=== PATIENT | male | born 1955 | race Caucasian/White ===

== ENCOUNTER → 2020-04-14 10:07 | Outpatient (BNVA) | payer OTHER, SELFPAY | PROVIDERS: PCP Internal Medicine; Referring Provider Internal Medicine; Visit Provider Nurse Practitioner Gerontology | DX: E11.42 Type 2 diabetes mellitus with diabetic polyneuropathy (principal); E11.319 Type 2 diabetes mellitus with unspecified diabetic retinopathy without macular edema; E11.29 Type 2 diabetes mellitus with other diabetic kidney complication; Z79.4 Long term (current) use of insulin; R80.9 Proteinuria, unspecified; I10 Essential (primary) hypertension; E78.1 Pure hyperglyceridemia | CPT/HCPCS: 99213 ==

== ENCOUNTER 2020-04-27 13:05 | Outpatient (REF) | payer OTHER, SELFPAY ==
[2020-04-27 14:58] LABS: Estimated Average Glucose 266 mg/dL; Hemoglobin A1c % 10.9 %
== END 2020-04-27 13:06 | disposition home or self-care (01) ==
LOC: HO.LAB 13:05
PROVIDERS: PCP Internal Medicine; Visit Provider Nurse Practitioner Gerontology
DX: E11.29 Type 2 diabetes mellitus with other diabetic kidney complication (principal)
CPT/HCPCS: 83036

== ENCOUNTER 2020-06-12 10:47 | Outpatient (REF) | payer OTHER, SELFPAY ==
[2020-06-12 13:47] LABS: Basophils Absolute Auto 0.1 X10*3/uL (0.0-0.2); Basophils Percent Auto 0.6 % (0-2); Eosinophils Absolute Auto 0.5 X10*3/uL (0.0-0.4); Eosinophils Percent Auto 5.5 % (0-4); Hematocrit 45.1 % (42-52); Hemoglobin 14.4 g/dl (14.0-18.0); Imm Gran Abs Auto 0.02 X10*3/uL (0.00-0.03); Imm Gran Pct Auto 0.2 % (0.0-0.4); Lymphocytes Absolute Auto 2.4 X10*3/uL (1.2-4.9); Lymphocytes Percent Auto 29.6 % (20-40); Mean Corpuscular HGB Conc 31.9 g/dl (31.0-36.0); Mean Corpuscular Hemoglobin 28.4 pg (27.0-33.0); Monocytes Absolute Auto 0.8 X10*3/uL (0.1-1.2); Monocytes Percent Auto 9.5 % (2-11); Neutrophils Absolute Auto 4.4 X10*3/uL (2.0-8.3); Neutrophils Percent Auto 54.6 % (45-73); Platelet Count 178 X10*3/uL (160-400); Red Blood Count 5.07 X10*6/uL (4.60-5.80); White Blood Count 8.1 X10*3/uL (4.8-10.8)
[2020-06-12 14:46] LABS: Albumin Level 4.1 g/dL (3.5-5.0); Anion Gap 18 (12-20); Blood Urea Nitrogen 27 mg/dL (9-16); Calcium 9.2 mg/dL (8.4-10.2); Carbon Dioxide 29 mmol/L (22-29); Chloride 100 mmol/L (96-108); Estimated Glomerular Filt Rate 46; Phosphorus 2.4 mg/dL (2.7-4.5); Potassium 4.7 mmol/l (3.3-5.1); Sodium 142 mmol/L (135-145)
== END 2020-06-12 10:48 | disposition home or self-care (01) ==
LOC: HO.10HDL 10:47
PROVIDERS: PCP Internal Medicine; Visit Provider Internal Medicine Hypertension Specialist
DX: I13.10 Hypertensive heart and chronic kidney disease without heart failure, with stage 1 through stage 4 chronic kidney disease, or unspecified chronic kidney disease (principal); E11.22 Type 2 diabetes mellitus with diabetic chronic kidney disease; N18.9 Chronic kidney disease, unspecified
CPT/HCPCS: 36415; 80051; 82040; 82310; 82565; 83735; 84100; 84520; 85025

== ENCOUNTER 2020-08-09 11:00 | Outpatient (RCR) | payer OTHER, SELFPAY ==
--- NOTE | 2020-06-15 11:30 | MHC.PT.EP ---
[facility] [place] Office [place] Office [place] Office [address] Stef Bland [address] [phone] F: [phone] F: [phone] F: [phone] F: [phone] Physical Therapy Plan of Care Date of Evaluation: 06/15/20 Date of Surgery: Diagnosis: spondylosis without myelopathy or radiculopathy, lumbar region Assessment: 64 y/o M referred to PT with spondylosis without myelopathy or radiculopathy, lumbar region. He has had multiple lumbar spine surgeries with the most recent surgery this January (?disectomy). He reports less pain since the surgery but is most challenged with control of his L LE and walking. He is unable to walk > 10min with walker only. He would like to walk with a cane. Examination shows decreased lumbar AROM, decreased L hip AROM, decreased L LE strength, lacks sensation of L3-4dermatome, and impaired gait pattern. Recommend PT 2x/week for 5 weeks to address impairments, implement HEP, and optimize functional mobility. Frequency and Duration: The patient will be seen 2x/week for 5 weeks Short Term Goals: 3 weeks: -Improve L LE strength by one MMT grade of hip muscles -I with HEP Voice Teacher Goals: 5 weeks: -I with HEP and self management of sx - Pt will ambulate > 30min with LRAD Treatment Plan: Modalities to reduce pain, spasms and effusion. Manual therapy to restore motion and function. Therapeutic exercise to improve strength and flexibility. Neuromuscular re-education for posture and balance. Therapeutic activities to return to functional activities of daily living. Electronically signed by: Sandra Antoine PT Please sign and return to therapist. Thank you for your referral.
--- NOTE | 2020-08-15 14:06 | MHC.PT.DC ---
[facility] [place] Office [place] Office [place] Office [address] Stef Bland [address] [phone] F: [phone] F: [phone] F: [phone] F: [phone] Physical Therapy Discharge Report Diagnosis: spondylosis without myelopathy or radiculopathy, lumbar region Date of Surgery: 01/2020 disectomy? Date of Evaluation: 06/15/20 Date of Discharge: 08/15/20 Treatments to Date: 9 Cancellations to Date: 1 No Shows to Date: 1 Discharge Status: Independent with HEP Discharge Summary: Pt did not f/u with final visit. At time of last attended session, Discussed anticipated d/c to I HEP next visit and pt in agreement. We reviewed exercises and importance to perform exercises wtih eccentric control. He continues to report fatigue following stepper. Electronically signed by: Sandra Antoine PT Please sign and return to therapist. Thank you for your referral.
== END 2020-08-15 14:06 | disposition other institution (70) ==
LOC: HO.PT 11:00
PROVIDERS: PCP Internal Medicine; Visit Provider Internal Medicine
DX: M47.816 Spondylosis without myelopathy or radiculopathy, lumbar region (principal); M48.061 Spinal stenosis, lumbar region without neurogenic claudication
CPT/HCPCS: 97110; 97112; 97140; 97162

== ENCOUNTER → 2020-10-13 09:56 | Outpatient (BNVA) | payer MEDICARE, MEDICAID, SELFPAY | PROVIDERS: PCP Internal Medicine; Visit Provider Nurse Practitioner Gerontology | DX: E11.29 Type 2 diabetes mellitus with other diabetic kidney complication (principal); E11.42 Type 2 diabetes mellitus with diabetic polyneuropathy; E66.01 Morbid (severe) obesity due to excess calories; Z68.37 Body mass index [BMI] 37.0-37.9, adult; R80.9 Proteinuria, unspecified; I10 Essential (primary) hypertension; E78.1 Pure hyperglyceridemia | CPT/HCPCS: 82947; 99212 ==

== ENCOUNTER 2020-11-07 09:14 | Inpatient (IN) | payer OTHER, SELFPAY ==
[2020-11-07] VITALS (8 sets, daily range): BP systolic 86–160; BP diastolic 47–100; PULSE 75–84; RESP 16–18; TEMP 36.9; O2SAT 95–99; BMI 39.5
--- NOTE | ~2020-11-07 | XR_ITS ---
EXAMINATION: CHEST, LUMBAR SPINE, BILATERAL HIPS AND AP PELVIS. CLINICAL INFORMATION: Multiple falls. COMPARISON: Left hip and lumbar spine 03/16/2019 TECHNIQUE: Chest one view. Lumbar spine 3 views. AP pelvis one view. Bilateral hips 2 views each FINDINGS: CHEST: Lungs are hypoexpanded but clear. The heart size and pulmonary vascularity is normal. No gross bony abnormality seen. LUMBAR SPINE: There is normal lumbar lordosis. There is loss of L3-L4, L5-S1 disc heights with moderate ventral spondylosis at at L3-L4, L2-L3 and L-2 disc levels. No acute fracture or lytic process seen. AP PELVIS: There is normal symmetry of bilateral SI joints and hip joints. No visible fracture seen. RIGHT HIP: There is small enthesophyte along the lateral acetabulum and lesser trochanter. No visible acute fracture, dislocation or subluxation seen. LEFT HIP: There is no visible acute fracture, dislocation or subluxation. No bony erosive changes. The soft tissues are normal. XR/XR lumbar spine 2-3V IMPRESSION: Unremarkable chest exam. Degenerative disc changes lumbar spine with moderate ventral spondylosis. No acute fracture or lytic process seen. Small enthesophytes along the lateral acetabulum and lesser trochanter right hip. There is no visible acute fracture involving the pelvic or bilateral hip joints.
--- NOTE | ~2020-11-07 | XR_ITS ---
EXAMINATION: CHEST, LUMBAR SPINE, BILATERAL HIPS AND AP PELVIS. CLINICAL INFORMATION: Multiple falls. COMPARISON: Left hip and lumbar spine 03/16/2019 TECHNIQUE: Chest one view. Lumbar spine 3 views. AP pelvis one view. Bilateral hips 2 views each FINDINGS: CHEST: Lungs are hypoexpanded but clear. The heart size and pulmonary vascularity is normal. No gross bony abnormality seen. LUMBAR SPINE: There is normal lumbar lordosis. There is loss of L3-L4, L5-S1 disc heights with moderate ventral spondylosis at at L3-L4, L2-L3 and L-2 disc levels. No acute fracture or lytic process seen. AP PELVIS: There is normal symmetry of bilateral SI joints and hip joints. No visible fracture seen. RIGHT HIP: There is small enthesophyte along the lateral acetabulum and lesser trochanter. No visible acute fracture, dislocation or subluxation seen. LEFT HIP: There is no visible acute fracture, dislocation or subluxation. No bony erosive changes. The soft tissues are normal. XR/XR pelvis 1-2V IMPRESSION: Unremarkable chest exam. Degenerative disc changes lumbar spine with moderate ventral spondylosis. No acute fracture or lytic process seen. Small enthesophytes along the lateral acetabulum and lesser trochanter right hip. There is no visible acute fracture involving the pelvic or bilateral hip joints.
--- NOTE | ~2020-11-07 | XR_ITS ---
EXAMINATION: CHEST, LUMBAR SPINE, BILATERAL HIPS AND AP PELVIS. CLINICAL INFORMATION: Multiple falls. COMPARISON: Left hip and lumbar spine 03/16/2019 TECHNIQUE: Chest one view. Lumbar spine 3 views. AP pelvis one view. Bilateral hips 2 views each FINDINGS: CHEST: Lungs are hypoexpanded but clear. The heart size and pulmonary vascularity is normal. No gross bony abnormality seen. LUMBAR SPINE: There is normal lumbar lordosis. There is loss of L3-L4, L5-S1 disc heights with moderate ventral spondylosis at at L3-L4, L2-L3 and L-2 disc levels. No acute fracture or lytic process seen. AP PELVIS: There is normal symmetry of bilateral SI joints and hip joints. No visible fracture seen. RIGHT HIP: There is small enthesophyte along the lateral acetabulum and lesser trochanter. No visible acute fracture, dislocation or subluxation seen. LEFT HIP: There is no visible acute fracture, dislocation or subluxation. No bony erosive changes. The soft tissues are normal. XR/XR chest 1V IMPRESSION: Unremarkable chest exam. Degenerative disc changes lumbar spine with moderate ventral spondylosis. No acute fracture or lytic process seen. Small enthesophytes along the lateral acetabulum and lesser trochanter right hip. There is no visible acute fracture involving the pelvic or bilateral hip joints.
--- NOTE | ~2020-11-07 | CT_ITS ---
EXAMINATION: CT PELVIS WITHOUT CONTRAST. CT LUMBAR SPINE WITHOUT CONTRAST. CLINICAL INFORMATION: Fall. Unable to ambulate. Pain left side COMPARISON: None TECHNIQUE: 3 mm thin axial and reformatted 0.6 mm thin sagittal and coronal reconstructed images of pelvis were obtained. Subsequently axial 3 mm thin and reformatted 3 mm thin sagittal and coronal images of lumbar spine were obtained. DLP [id number]. FINDINGS: PELVIS: There is scattered colonic diverticulosis without mural thickening and pericolic fat stranding. No pelvic mass or abnormal pelvic or inguinal lymph nodes seen. The urinary bladder is distended but otherwise unremarkable. Bone windows reveal mild degenerative disc changes with vacuum disc phenomena at L5-S1 disc level. No lytic or sclerotic process seen. There is normal symmetry of bilateral hip joints and SI joints. LUMBAR SPINE: There is normal lumbar lordosis. Loss of L2-L3 and L3-L4 disc heights with ventral and posterior spondylosis is noted. Rest of the disc heights are normal. The vertebral heights and alignment is normal. There is no visible acute fracture or dislocation. No lytic or sclerotic process. There is mild posterior T12-L1 and L1-L2 and moderate ventral L1-L2 and L3-L4 spondylosis. There is moderate right L3-for L4-L5 facet joint arthropathy and hypertrophy. Moderate bilateral L5-S1 facet joint arthropathy is noted. There is mild posterior spondylosis and/bulge complex with circumferential spinal canal stenosis at the L1-L2 disc level. At L2-L3 disc level there is minimal/bulge/osteophyte complex without spinal canal stenosis. There is moderate bilateral neural foraminal narrowing. At L3-L4 disc level there is posterior spondylosis/bulge complex with circumferential canal stenosis. There is moderate bilateral facet joint arthropathy. At L4-L5 disc level there is a broad-based diffuse bulge with moderate spinal canal stenosis. There is moderate to significant right facet joint arthropathy with mild bilateral narrowing of neural foramina is noted At L5-S1 disc level there is no disc bulge, herniation or spinal canal stenosis. The paravertebral soft tissues are normal. CT/CT lumbar spine wo con IMPRESSION: Unremarkable pelvis exam no bony abnormality seen. Degenerative disc changes L2-L3-L4 disc levels with upper lumbar spine and moderate ventral spondylosis Mild canal stenosis secondary to disc bulge/osteophyte complex at L3-L4 and L4-L5 disc levels.
--- NOTE | ~2020-11-07 | XR_ITS ---
EXAMINATION: CHEST, LUMBAR SPINE, BILATERAL HIPS AND AP PELVIS. CLINICAL INFORMATION: Multiple falls. COMPARISON: Left hip and lumbar spine 03/16/2019 TECHNIQUE: Chest one view. Lumbar spine 3 views. AP pelvis one view. Bilateral hips 2 views each FINDINGS: CHEST: Lungs are hypoexpanded but clear. The heart size and pulmonary vascularity is normal. No gross bony abnormality seen. LUMBAR SPINE: There is normal lumbar lordosis. There is loss of L3-L4, L5-S1 disc heights with moderate ventral spondylosis at at L3-L4, L2-L3 and L-2 disc levels. No acute fracture or lytic process seen. AP PELVIS: There is normal symmetry of bilateral SI joints and hip joints. No visible fracture seen. RIGHT HIP: There is small enthesophyte along the lateral acetabulum and lesser trochanter. No visible acute fracture, dislocation or subluxation seen. LEFT HIP: There is no visible acute fracture, dislocation or subluxation. No bony erosive changes. The soft tissues are normal. XR/XR hips ALINE min 3V IMPRESSION: Unremarkable chest exam. Degenerative disc changes lumbar spine with moderate ventral spondylosis. No acute fracture or lytic process seen. Small enthesophytes along the lateral acetabulum and lesser trochanter right hip. There is no visible acute fracture involving the pelvic or bilateral hip joints.
--- NOTE | ~2020-11-07 | CT_ITS ---
EXAMINATION: HEAD CT AND CERVICAL SPINE CT WITHOUT CONTRAST CLINICAL INFORMATION: Fall. Syncope. COMPARISON: Previous cervical spine CT scan April 2020 TECHNIQUE: Axial images through the head and cervical spine without contrast. Sagittal and coronal reconstructions on the technologist workstation were performed. Patient dose 893+4 6 9 mg/cm. This CT examination was performed using dose optimization techniques as appropriate, variously including the following: *Automated exposure control *Adjustment of mA and/or kV according to patient size (this includes techniques or standardized protocols for targeted exams where dose is matched to indication/reason for exam; i.e. extremities or head) *Use of iterative reconstruction technique FINDINGS: Head CT: There is no evidence of an extra-axial collection. There is no evidence of intra-axial or extra-axial hemorrhage. Ventricles and extra-axial CSF spaces are appropriate. Correa-white matter differentiation is normal. No mass, mass effect or infarct is seen. Review of bone windows is normal. Visualized paranasal sinuses, mastoid air cells and middle ears are clear. Cervical spine CT: There is mild 2 mm anterior subluxation of C7 with respect to C6 and T1. There is curvature of the proximal cervical spine to the right. Bone alignment is otherwise normal. There is multilevel degenerative spondylosis seen at all levels. 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 There is degenerative disc disease at C5-C6 and C6-C7 There are degenerative changes of the C1 dens articulation. There is facet arthritis seen at C5-C6, C6-C7 and C7-T1 bilaterally. Prevertebral soft tissues are normal. Visualized lung apices are clear. CT/CT cervical spine wo con IMPRESSION: Head CT: Unremarkable exam. Cervical spine CT: Multilevel degenerative changes. No fracture or dislocation seen.
--- NOTE | 2020-11-07 09:30 | ECG_ITS ---
Test Reason : SYNCOPE Blood Pressure : / mmHG Vent. Rate : 079 BPM Atrial Rate : 079 BPM P-R Int : 166 ms QRS Dur : 110 ms QT Int : 402 ms P-R-T Axes : 036 -34 026 degrees QTc Int : 460 ms Normal sinus rhythm Left axis deviation Borderline ECG When compared with ECG of 25-AUG-2019 09:04, No significant change was found Referred By: Supriya Marin Electronically Signed By:RITA LO
[2020-11-07 10:04] LABS: MANUAL DIFF FLAG NO
[2020-11-07 10:14] LABS: Basophils Percent Auto 0.4 % (0-2); Eosinophils Absolute Auto 0.5 X10*3/uL (0.0-0.4); Eosinophils Percent Auto 5.3 % (0-4); Hematocrit 40.3 % (42-52); Imm Gran Abs Auto 0.04 X10*3/uL (0.00-0.03); Imm Gran Pct Auto 0.4 % (0.0-0.4); Lymphocytes Absolute Auto 2.3 X10*3/uL (1.2-4.9); Lymphocytes Percent Auto 24.9 % (20-40); Mean Corpuscular HGB Conc 32.3 g/dl (31.0-36.0); Mean Corpuscular Hemoglobin 29.7 pg (27.0-33.0); Mean Platelet Volume 13.6 fL (9.4-12.4); Monocytes Absolute Auto 0.7 X10*3/uL (0.1-1.2); Monocytes Percent Auto 7.1 % (2-11); Neutrophils Absolute Auto 5.8 X10*3/uL (2.0-8.3); Neutrophils Percent Auto 61.9 % (45-73); Platelet Count 211 X10*3/uL (160-400); Red Blood Count 4.38 X10*6/uL (4.60-5.80); Red Cell Distribution Width 16.6 % (11.0-16.0); White Blood Count 9.4 X10*3/uL (4.8-10.8)
[2020-11-07 10:21] LABS: Prothrombin Time 11.6 SEC (10.8-13.0)
[2020-11-07 10:24] LABS: Partial Thromboplastin Time 38.4 SEC (24.1-38.0)
[2020-11-07 10:28] LABS: Lactic Acid 4.3 mmol/L (0.5-2.0)
[2020-11-07 10:29] LABS: Glucose Urine UA NEG (NEG); Leukocyte Esterase Urine NEG (NEG); Nitrite Urine NEG (NEG); PH 5.5 (5.0-8.0); Urine Blood NEG (NEG); Urine Ketones NEG (NEG); Urine Protein NEG (NEG-TRACE)
[2020-11-07 10:30] LABS: Appearance Urine CLEAR; Color Urine YELLOW
--- NOTE | 2020-11-07 10:39 | ED_ITS ---
HPI - Syncope General Chief Complaint: Syncope Stated Complaint: LEFT SIDED PAIN AFTER FALL LAST NIGHT,DIZZINESS Time Seen by Provider: 11/07/20 09:18 Source: patient and EMS Mode of arrival: EMS History of Present Illness HPI narrative: 65-year-old male with a past medical history of arthritis, diabetes, diabetic neuropathy, HTN, HLD, lumbar stenosis, obesity, BIBA c/o left hip/side pain s/p fall last night and this morning. Patient reports 4-5 falls in the past week, with dizziness prior to falls, + syncope and LOC, unknown head trauma. Falls are unwitnessed, patient lives at home alone, does not recall events. Reports acute on chronic back pain. Denies headache, vision changes, CP/SOB, abdominal pain, nausea/vomiting, urinary incontinence and retention, weakness, numbness/tingling, fever, cough. Denies known history of seizures MD complaint: loss of consciousness, felt faint and collapsed Related Data Home Medications Medication Instructions Recorded Confirmed atorvastatin 20 mg tablet 20 mg PO DAILY 04/14/20 11/07/20 blood sugar diagnostic #10 ea 04/14/20 10/13/20 fenofibrate nanocrystallized 145 145 mg PO DAILY 04/14/20 11/07/20 mg tablet lancets 28 gauge #100 ea 04/14/20 10/13/20 lorazepam 1 mg tablet 1 mg PO BID 04/14/20 11/07/20 pen needle, diabetic 32 gauge x #50 ea 04/14/20 10/13/20 sertraline 50 mg tablet 50 mg PO DAILY 04/14/20 11/07/20 pen needle, diabetic 31 gauge x #1200 ea 10/13/20 10/13/2011/19 gabapentin 1 cap PO TID 11/07/20 11/07/20 latanoprost 1 drp OPHTHALMIC (EYE) BEDTIME 11/07/20 11/07/20 Previous Rx's Medication Instructions Recorded amlodipine 5 mg tablet 5 mg PO DAILY #30 tab 04/27/20 aspirin 81 mg tablet,delayed 81 mg PO DAILY #30 tab 04/27/20 release ketoconazole 2 % shampoo 1 appl TOPICAL 3XW 30 Days #120 ml 08/24/20 furosemide 20 mg tablet 20 mg PO DAILY #90 tab 09/18/20 cholecalciferol (vitamin D3) 25 25 mcg PO DAILY #30 tab 09/23/20 mcg (1,000 unit) tablet insulin aspart U-100 100 unit/mL See Rx Instructions SUBCUT TID 30 10/13/20 (3 mL) subcutaneous pen Days #30 ml lancets #100 ea 10/13/20 insulin glargine 100 unit/mL (3 55 unit SUBCUT QPM #30 ml 10/16/20 mL) subcutaneous pen blood sugar diagnostic #100 ea 10/17/20 blood-glucose meter #1 ea 10/17/20 dulaglutide 1.5 mg/0.5 mL 1.5 mg SUBCUT QWEEK #2 ml 10/19/20 subcutaneous pen injector metformin 500 mg tablet 500 mg PO BID #56 tab 10/19/20 hydrochlorothiazide 25 mg tablet 25 mg PO DAILY #30 tab 10/29/20 benazepril 40 mg tablet 40 mg PO DAILY #30 tab 10/30/20 oxycodone 5 mg tablet 5 mg PO TID PRN 30 Days #90 tab 10/30/20 Allergies Allergy/AdvReac Type Severity Reaction Status Date / Time Penicillins [PENICILLINS] Allergy Unknown RASH Verified 08/24/20 11:34 Review of Systems Review of Systems: Constitutional: No Fever, No Chills, No Fatigue, No Malaise ENT/Mouth: No Ear Pain, No Nasal Congestion, No sore throat Eyes: No Eye Pain, No Swelling, No Redness, No Vision Changes Cardiovascular: No Chest Pain, No SOB, No Dyspnea on Exertion, No Edema Respiratory: No Cough, No Wheezing, No Dyspnea Gastrointestinal: No Nausea, No Vomiting, No Diarrhea, No Constipation, No Abdominal pain Genitourinary: No Dysuria, No Hematuria, No Urinary Incontinence/retention, No Flank Pain Musculoskeletal: + acute on chronic back pain pain, + left hip pain, No Joint Swelling Skin: No Skin Lesions, No rash Neuro: No Weakness, No Numbness, No Paresthesias, + Loss of Consciousness, + Dizziness, + multiple falls, No Headache Yes all other systems are reviewed and are negative Neurologic: Denies Sensory deficit (Neuro) [facility] Past Medical History Attestation statement: The following information was validated with the patient. Medical History (Updated 11/07/20 @ 13:56 by JIM Valentino) Arthritis Diabetic polyneuropathy associated with type 2 diabetes mellitus Hypertension Hypertriglyceridemia Lumbar spondylosis Lumbar stenosis Obesity due to excess calories Proteinuria Type 2 diabetes mellitus with other diabetic kidney complication Surgical History H/O left knee surgery History of back surgery History of lumbar surgery Hx of eye surgery Family History Family History Father Medical history unknown Mother No problems noted. Maternal Grandmother Medical history unknown Social History Social History (Updated 10/13/20 @ 10:04 by Gladys Gayle [facility]) Household Members: None Alcohol intake: never Smoking Status: Never smoker Tobacco Type: Cigarette Smoked in Last 30 Days: No Advance Directives: Yes Advance Directives Information Provided: No Advance Directives on File: No Physical Exam Vital Signs: Vital Signs: Last Vital Signs Pulse 75 11/07/20 11:52 Resp 16 11/07/20 11:52 BP 97/66 11/07/20 11:52 Pulse Ox 99 11/07/20 11:52 Body Mass Index 39.5 Const: General: cooperative and healthy appearing Orientation/consciousness: patient oriented x3 Limitations: no limitations HENMT: Head: Yes normal to inspection, Yes atraumatic, No Isaacs's sign and No raccoon eyes Ears: hearing grossly normal bilaterally General nose exam: Normal external nose present Face and sinus: Yes normal facial exam Eyes: General: appearance normal, both eyes and all related structures Pupils: Equal, round and reactive pupils present EOM: EOMs intact bilaterally Neck: Other: No midline cervical spinous tenderness or step-offs Neck: Yes normal visual inspection and Yes supple Chest: Chest palpation & inspection: normal inspection of the chest and no crepitus Resp: Effort & Inspection: normal respiratory effort Auscultation: clear to auscultation bilaterally, no crackles, no rales, no rhonchi and no wheezes Cardio: Rate: regular rate Heart sounds: S1 normal heart sound present and S2 normal heart sound present GI: Inspection: Yes normal to inspection Palpation (GI): Soft to palpation, nontender, no guarding and not rigid Back/Spine/Pelvis: Other: Old surgical scar noted to lumbar region. No midline thoracic/lumbar spinous tenderness. + bilateral lumbar MSK tenderness to palpation, no appreciable deformity Skin: Rashes: no rashes Wounds: no wounds Neuro: General: patient oriented x3, tone normal and moves all extremities Cranial nerves: Yes Equal, round and reactive pupils present Motor exam (neuro): 5/5 motor strength present throughout, Pronator motor function not present and no tremor noted Sensory Exam: No Sensory deficit (Neuro) Coordination: [id number] test normal Extrem: Other: Pelvis is stable. Left hip/buttock with +ttp & decreased active ROM secondary to pain. Left nontender General: Yes normal to inspection and Yes no pedal edema Course Course Course Narrative: -no leukocytosis, H&H stable, lactic acid 4.3 > consistent with ?possible seizure >> IVF ordered -UA negative -CXR, lumbar spine, pelvis/hip x-rays without acute findings/fractures or dislocations, degenerative disc changes in lumbar spine > patient has not ambulated since fall this morning will obtain CT pelvis/lumbar spine -1058--notable DAVINA with BUN 45/creatinine 2.76, CPK 662, AST/ ALT elevated (have been elevated in the past), troponin negative -Per pharmacy patient is not compliant with the following medications that he should be taking: Amlopidine, atorvastatin, benazapril, trulicty, sertraline, metformin, hctz. The other meds he reports to adherence to -lactic improved to 2.2 -head/C-spine CT without acute findings CT lumbar spine wo con IMPRESSION: Unremarkable pelvis exam no bony abnormality seen. Degenerative disc changes L2-L3-L4 disc levels with upper lumbar spine and moderate ventral spondylosis Mild canal stenosis secondary to disc bulge/osteophyte complex at L3-L4 and L4-L5 disc levels. > plan to admit for further workup MDM - Syncope MDM Narrative Medical decision making narrative: 65-year-old male with a past medical history of arthritis, diabetes, diabetic neuropathy, HTN, HLD, lumbar stenosis, obesity, BIBA c/o left hip/side pain s/p fall last night and this morning. Patient reports 4-5 falls in the past week, with dizziness prior to falls, + syncope and LOC, unknown head trauma. On exam VSS, NAD, nontoxic appearing, no midline spinous tenderness throughout, physical exam as above, no red flag symptoms. Concern for syncope vs seizure vs ACS vs dehydration/metabolic abnormalities vs ?Aortic stenosis. Rule out ICH/pathology and fracture Plan: EKG, labs, UA, imaging, IVF, anticipated admission Medical Records Attestation: I reviewed the patient's medical records. Lab Data Attestation: I reviewed the patient's lab results. Result diagrams: 11/07/20 09:58 11/07/20 09:58 Labs: Lab Results 11/07/20 11/07/20 11/07/20 Range/Units 09:56 09:57 09:58 WBC 9.4 (4.8-10.8) X10*3/uL RBC 4.38 L (4.60-5.80) X10*6/uL Hgb 13.0 L (14.0-18.0) g/dl Hct 40.3 L (42-52) % MCV 92.0 (80-98) fL MCH 29.7 (27.0-33.0) pg MCHC 32.3 (31.0-36.0) g/dl RDW 16.6 H (11.0-16.0) % Plt Count 211 (160-400) X10*3/uL MPV 13.6 H (9.4-12.4) fL Immature Gran % (Auto) 0.4 (0.0-0.4) % Neut % (Auto) 61.9 (45-73) % Lymph % (Auto) 24.9 (20-40) % [place] % (Auto) 7.1 (2-11) % Eos % (Auto) 5.3 H (0-4) % Baso % (Auto) 0.4 (0-2) % Lymph # (Auto) 2.3 (1.2-4.9) X10*3/uL [place] # (Auto) 0.7 (0.1-1.2) X10*3/uL Eos # (Auto) 0.5 H (0.0-0.4) X10*3/uL Baso # (Auto) 0.0 (0.0-0.2) X10*3/uL Abs Immat Gran (auto) 0.04 H (0.00-0.03) X10*3/uL Absolute Neuts (auto) 5.8 (2.0-8.3) X10*3/uL Absolute Nucleated RBC 0.000 (0.0-0.012) X10*3/uL Nucleated RBC % (auto) 0.0 (0.0-0.2) /100WBC PT (10.8-13.0) SEC INR (0.9-1.1) APTT (24.1-38.0) SEC Sodium (135-145) mmol/L Potassium (3.3-5.1) mmol/L Chloride (96-108) mmol/L Carbon Dioxide (22-29) mmol/L Anion Gap (12-20) BUN (9-16) mg/dL Creatinine (0.5-1.4) mg/dL Estim Creat Clear Calc Estimated GFR Random Glucose (60-115) mg/dL Lactic Acid 4.3 H* (0.5-2.0) mmol/L Lactic Acid Fup @ 2Hr (0.5-2.0) mmol/L Calcium (8.4-10.2) mg/dL Magnesium (1.6-2.6) mg/dL Total Bilirubin (0.0-1.0) mg/dL Direct Bilirubin (0.0-0.5) mg/dL AST (5-37) U/L ALT (0-40) U/L Alkaline Phosphatase (39-117) U/L Total Creatine Kinase (38-174) U/L Troponin I High Sens (<3.5-35.0) ng/L B-Natriuretic Peptide (<100) pg/mL Total Protein (6.5-8.0) g/dL Albumin (3.5-5.0) g/dL Lipase (8-78) U/L Urine Color Urine Appearance Urine pH (5.0-8.0) Ur Specific [place] (1.005-1.025) Urine Protein (NEG-TRACE) MG/DL Urine Glucose (UA) (NEG) MG/DL Urine Ketones (NEG) MG/DL Urine Blood (NEG) Urine Nitrite (NEG) Ur Leukocyte Esterase (NEG) Salicylates (15-30) mg/dL Urine Opiates Screen (Not Detect) Acetaminophen (<30) mcg/mL Ur Barbiturates Screen (Not Detect) Ur Phencyclidine Scrn (Not Detect) Ur Amphetamines Screen (Not Detect) U Benzodiazepines Scrn (Not Detect) Urine Cocaine Screen (Not Detect) U Marijuana (THC) Screen (Not Detect) Ethyl Alcohol mg/dL Coronavirus (PCR) NEGATIVE (Negative) Influenza Type A (PCR) NEGATIVE (Negative) Influenza Type B (PCR) NEGATIVE (Negative) RSV RNA Qual (PCR) NEGATIVE (Negative) 11/07/20 11/07/20 11/07/20 Range/Units 09:58 09:58 09:58 WBC (4.8-10.8) X10*3/uL RBC (4.60-5.80) X10*6/uL Hgb (14.0-18.0) g/dl Hct (42-52) % MCV (80-98) fL MCH (27.0-33.0) pg MCHC (31.0-36.0) g/dl RDW (11.0-16.0) % Plt Count (160-400) X10*3/uL MPV (9.4-12.4) fL Immature Gran % (Auto) (0.0-0.4) % Neut % (Auto) (45-73) % Lymph % (Auto) (20-40) % [place] % (Auto) (2-11) % Eos % (Auto) (0-4) % Baso % (Auto) (0-2) % Lymph # (Auto) (1.2-4.9) X10*3/uL [place] # (Auto) (0.1-1.2) X10*3/uL Eos # (Auto) (0.0-0.4) X10*3/uL Baso # (Auto) (0.0-0.2) X10*3/uL Abs Immat Gran (auto) (0.00-0.03) X10*3/uL Absolute Neuts (auto) (2.0-8.3) X10*3/uL Absolute Nucleated RBC (0.0-0.012) X10*3/uL Nucleated RBC % (auto) (0.0-0.2) /100WBC PT 11.6 (10.8-13.0) SEC INR 1.0 (0.9-1.1) APTT 38.4 H (24.1-38.0) SEC Sodium 144 (135-145) mmol/L Potassium 4.7 (3.3-5.1) mmol/L Chloride 102 (96-108) mmol/L Carbon Dioxide 29 (22-29) mmol/L Anion Gap 18 (12-20) BUN 45 H D (9-16) mg/dL Creatinine 2.76 H (0.5-1.4) mg/dL Estim Creat Clear Calc 33.2 Estimated GFR 23 Random Glucose 160 H (60-115) mg/dL Lactic Acid (0.5-2.0) mmol/L Lactic Acid Fup @ 2Hr (0.5-2.0) mmol/L Calcium 9.7 (8.4-10.2) mg/dL Magnesium 2.4 (1.6-2.6) mg/dL Total Bilirubin 0.6 (0.0-1.0) mg/dL Direct Bilirubin 0.3 (0.0-0.5) mg/dL AST 59 H (5-37) U/L ALT 47 H (0-40) U/L Alkaline Phosphatase 79 (39-117) U/L Total Creatine Kinase 662 H (38-174) U/L Troponin I High Sens < 3.5 (<3.5-35.0) ng/L B-Natriuretic Peptide < 10 (<100) pg/mL Total Protein 7.3 (6.5-8.0) g/dL Albumin 4.2 (3.5-5.0) g/dL Lipase 56 (8-78) U/L Urine Color Urine Appearance Urine pH (5.0-8.0) Ur Specific [place] (1.005-1.025) Urine Protein (NEG-TRACE) MG/DL Urine Glucose (UA) (NEG) MG/DL Urine Ketones (NEG) MG/DL Urine Blood (NEG) Urine Nitrite (NEG) Ur Leukocyte Esterase (NEG) Salicylates < 5.0 L (15-30) mg/dL Urine Opiates Screen (Not Detect) Acetaminophen < 1 (<30) mcg/mL Ur Barbiturates Screen (Not Detect) Ur Phencyclidine Scrn (Not Detect) Ur Amphetamines Screen (Not Detect) U Benzodiazepines Scrn (Not Detect) Urine Cocaine Screen (Not Detect) U Marijuana (THC) Screen (Not Detect) Ethyl Alcohol mg/dL Coronavirus (PCR) (Negative) Influenza Type A (PCR) (Negative) Influenza Type B (PCR) (Negative) RSV RNA Qual (PCR) (Negative) 11/07/20 11/07/20 11/07/20 Range/Units 10:15 10:15 12:20 WBC (4.8-10.8) X10*3/uL RBC (4.60-5.80) X10*6/uL Hgb (14.0-18.0) g/dl Hct (42-52) % MCV (80-98) fL MCH (27.0-33.0) pg MCHC (31.0-36.0) g/dl RDW (11.0-16.0) % Plt Count (160-400) X10*3/uL MPV (9.4-12.4) fL Immature Gran % (Auto) (0.0-0.4) % Neut % (Auto) (45-73) % Lymph % (Auto) (20-40) % [place] % (Auto) (2-11) % Eos % (Auto) (0-4) % Baso % (Auto) (0-2) % Lymph # (Auto) (1.2-4.9) X10*3/uL [place] # (Auto) (0.1-1.2) X10*3/uL Eos # (Auto) (0.0-0.4) X10*3/uL Baso # (Auto) (0.0-0.2) X10*3/uL Abs Immat Gran (auto) (0.00-0.03) X10*3/uL Absolute Neuts (auto) (2.0-8.3) X10*3/uL Absolute Nucleated RBC (0.0-0.012) X10*3/uL Nucleated RBC % (auto) (0.0-0.2) /100WBC PT (10.8-13.0) SEC INR (0.9-1.1) APTT (24.1-38.0) SEC Sodium (135-145) mmol/L Potassium (3.3-5.1) mmol/L Chloride (96-108) mmol/L Carbon Dioxide (22-29) mmol/L Anion Gap (12-20) BUN (9-16) mg/dL Creatinine (0.5-1.4) mg/dL Estim Creat Clear Calc Estimated GFR Random Glucose (60-115) mg/dL Lactic Acid (0.5-2.0) mmol/L Lactic Acid Fup @ 2Hr (0.5-2.0) mmol/L Calcium (8.4-10.2) mg/dL Magnesium (1.6-2.6) mg/dL Total Bilirubin (0.0-1.0) mg/dL Direct Bilirubin (0.0-0.5) mg/dL AST (5-37) U/L ALT (0-40) U/L Alkaline Phosphatase (39-117) U/L Total Creatine Kinase (38-174) U/L Troponin I High Sens (<3.5-35.0) ng/L B-Natriuretic Peptide (<100) pg/mL Total Protein (6.5-8.0) g/dL Albumin (3.5-5.0) g/dL Lipase (8-78) U/L Urine Color YELLOW Urine Appearance CLEAR Urine pH 5.5 (5.0-8.0) Ur Specific [place] 1.020 (1.005-1.025) Urine Protein NEG (NEG-TRACE) MG/DL Urine Glucose (UA) NEG (NEG) MG/DL Urine Ketones NEG (NEG) MG/DL Urine Blood NEG (NEG) Urine Nitrite NEG (NEG) Ur Leukocyte Esterase NEG (NEG) Salicylates (15-30) mg/dL Urine Opiates Screen POSITIVE H (Not Detect) Acetaminophen (<30) mcg/mL Ur Barbiturates Screen Not Detected (Not Detect) Ur Phencyclidine Scrn Not Detected (Not Detect) Ur Amphetamines Screen Not Detected (Not Detect) U Benzodiazepines Scrn Not Detected (Not Detect) Urine Cocaine Screen Not Detected (Not Detect) U Marijuana (THC) Screen Not Detected (Not Detect) Ethyl Alcohol < 10 mg/dL Coronavirus (PCR) (Negative) Influenza Type A (PCR) (Negative) Influenza Type B (PCR) (Negative) RSV RNA Qual (PCR) (Negative) 11/07/20 Range/Units 12:20 WBC (4.8-10.8) X10*3/uL RBC (4.60-5.80) X10*6/uL Hgb (14.0-18.0) g/dl Hct (42-52) % MCV (80-98) fL MCH (27.0-33.0) pg MCHC (31.0-36.0) g/dl RDW (11.0-16.0) % Plt Count (160-400) X10*3/uL MPV (9.4-12.4) fL Immature Gran % (Auto) (0.0-0.4) % Neut % (Auto) (45-73) % Lymph % (Auto) (20-40) % [place] % (Auto) (2-11) % Eos % (Auto) (0-4) % Baso % (Auto) (0-2) % Lymph # (Auto) (1.2-4.9) X10*3/uL [place] # (Auto) (0.1-1.2) X10*3/uL Eos # (Auto) (0.0-0.4) X10*3/uL Baso # (Auto) (0.0-0.2) X10*3/uL Abs Immat Gran (auto) (0.00-0.03) X10*3/uL Absolute Neuts (auto) (2.0-8.3) X10*3/uL Absolute Nucleated RBC (0.0-0.012) X10*3/uL Nucleated RBC % (auto) (0.0-0.2) /100WBC PT (10.8-13.0) SEC INR (0.9-1.1) APTT (24.1-38.0) SEC Sodium (135-145) mmol/L Potassium (3.3-5.1) mmol/L Chloride (96-108) mmol/L Carbon Dioxide (22-29) mmol/L Anion Gap (12-20) BUN (9-16) mg/dL Creatinine (0.5-1.4) mg/dL Estim Creat Clear Calc Estimated GFR Random Glucose (60-115) mg/dL Lactic Acid (0.5-2.0) mmol/L Lactic Acid Fup @ 2Hr 2.2 H* (0.5-2.0) mmol/L Calcium (8.4-10.2) mg/dL Magnesium (1.6-2.6) mg/dL Total Bilirubin (0.0-1.0) mg/dL Direct Bilirubin (0.0-0.5) mg/dL AST (5-37) U/L ALT (0-40) U/L Alkaline Phosphatase (39-117) U/L Total Creatine Kinase (38-174) U/L Troponin I High Sens (<3.5-35.0) ng/L B-Natriuretic Peptide (<100) pg/mL Total Protein (6.5-8.0) g/dL Albumin (3.5-5.0) g/dL Lipase (8-78) U/L Urine Color Urine Appearance Urine pH (5.0-8.0) Ur Specific [place] (1.005-1.025) Urine Protein (NEG-TRACE) MG/DL Urine Glucose (UA) (NEG) MG/DL Urine Ketones (NEG) MG/DL Urine Blood (NEG) Urine Nitrite (NEG) Ur Leukocyte Esterase (NEG) Salicylates (15-30) mg/dL Urine Opiates Screen (Not Detect) Acetaminophen (<30) mcg/mL Ur Barbiturates Screen (Not Detect) Ur Phencyclidine Scrn (Not Detect) Ur Amphetamines Screen (Not Detect) U Benzodiazepines Scrn (Not Detect) Urine Cocaine Screen (Not Detect) U Marijuana (THC) Screen (Not Detect) Ethyl Alcohol mg/dL Coronavirus (PCR) (Negative) Influenza Type A (PCR) (Negative) Influenza Type B (PCR) (Negative) RSV RNA Qual (PCR) (Negative) Discharge Plan Discharge Clinical Impression: DAVINA (acute kidney injury), Syncope, Multiple falls, Low back pain Prescriptions: No Action amlodipine 5 mg tablet 5 mg PO DAILY Qty: 30 RF: 11 aspirin 81 mg tablet,delayed release (DR/EC) 81 mg PO DAILY Qty: 30 RF: 11 furosemide 20 mg tablet 20 mg PO DAILY Qty: 90 RF: 2 cholecalciferol (vitamin D3) 25 mcg (1,000 unit) tablet 25 mcg PO DAILY Qty: 30 RF: 8 (DME) lancets [Accu-Chek Softclix Lancets] Misc See Rx Instructions .ROUTE .MEDSUPPLY Qty: 100 RF: 11 Lantus Solostar U-100 Insulin 100 unit/mL (3 mL) insulin pen 55 unit subcut QPM Qty: 30 RF: 3 (DME) Accu-Chek Felisa Plus test strp Strip See Rx Instructions .ROUTE .MEDSUPPLY Qty: 100 RF: 11 (DME) blood-glucose meter [Accu-Chek Felisa Plus Meter] Misc See Rx Instructions .ROUTE .MEDSUPPLY Qty: 1 RF: 0 metformin 500 mg tablet 500 mg PO BID Qty: 56 RF: 0 dulaglutide [Trulicity] 1.5 mg/0.5 mL pen injector 1.5 mg subcut QWEEK Qty: 2 RF: 0 hydrochlorothiazide 25 mg tablet 25 mg PO DAILY Qty: 30 RF: 6 oxycodone 5 mg tablet 5 mg PO TID PRN (Reason: pain) 30 Days Qty: 90 RF: 0 benazepril 40 mg tablet 40 mg PO DAILY Qty: 30 RF: 2 latanoprost 0.005 % drops 1 drp ophthalmic (eye) BEDTIME RF: 0 gabapentin 400 mg capsule 1 cap PO TID RF: 0 ketoconazole 2 % shampoo 1 appl topical 3XW 30 Days Qty: 120 RF: 4 sertraline 50 mg tablet 50 mg PO DAILY RF: 0 atorvastatin 20 mg tablet 20 mg PO DAILY RF: 0 (DME) pen needle, diabetic 32 gauge x 5/32 needle See Rx Instructions ea subcut .MEDSUPPLY Qty: 50 RF: 0 lorazepam 1 mg tablet 1 mg PO BID RF: 0 (DME) lancets 28 gauge misc See Rx Instructions lancet topical TID Qty: 100 RF: 0 (DME) FreeStyle Lite Strips Strip See Rx Instructions strip .ROUTE .MEDSUPPLY Qty: 10 RF: 0 fenofibrate nanocrystallized 145 mg tablet 145 mg PO DAILY RF: 0 (DME) pen needle, diabetic 31 gauge x 5/16 needle See Rx Instructions ea subcut .MEDSUPPLY Qty: 1200 RF: 0 insulin aspart U-100 [Novolog Flexpen U-100 Insulin] 100 unit/mL (3 mL) insulin pen See Rx Instructions subcut TID 30 Days Qty: 30 RF: 3
[2020-11-07] MEDS: 0.9 % Sodium Chloride 1,000 ML 999 ML IVCONT ×2 (10:43→11:51)
[2020-11-07 10:44] LABS: Alanine Aminotransferase 47 U/L (0-40); Albumin Level 4.2 g/dL (3.5-5.0); Alkaline Phosphatase 79 U/L (39-117); Anion Gap 18 (12-20); Aspartate Amino Transferase 59 U/L (5-37); Bilirubin Direct 0.3 mg/dL (0.0-0.5); Bilirubin Total 0.6 mg/dL (0.0-1.0); Blood Urea Nitrogen 45 mg/dL (9-16); Calcium 9.7 mg/dL (8.4-10.2); Carbon Dioxide 29 mmol/L (22-29); Chloride 102 mmol/L (96-108); Creatinine Clr Calc Pharmacy 33.2; Estimated Glomerular Filt Rate 23; Glucose Random 160 mg/dL (60-115); Lipase 56 U/L (8-78); Magnesium 2.4 mg/dL (1.6-2.6); Potassium 4.7 mmol/L (3.3-5.1); Sodium 144 mmol/L (135-145); Total Protein 7.3 g/dL (6.5-8.0)
[2020-11-07 10:47] LABS: B Type Natriuretic Peptide < 10 pg/mL (<100); Troponin-I High Sensitivity < 3.5 ng/L (<3.5-35.0)
[2020-11-07 10:57] LABS: Amphetamine Screen Urine Not Detected (Not Detect); Barbiturates, Urine Not Detected (Not Detect); Benzodiazepines Screen Urine Not Detected (Not Detect); Cannabinoid Screen Urine Not Detected (Not Detect); Cocaine Screen Urine Not Detected (Not Detect); Opiate Screen Urine POSITIVE (Not Detect); Phencyclidine Screen Urine Not Detected (Not Detect)
[2020-11-07 10:59] LABS: Influenza A PCR NEGATIVE (Negative); Influenza B PCR NEGATIVE (Negative); Resp Syncy Virus RNA Qual PCR NEGATIVE (Negative); SARS COV2 PCR INHOUSE NEGATIVE (Negative)
[2020-11-07 11:01] LABS: Acetaminophen LAB < 1 mcg/mL (<30); Salicylate < 5.0 mg/dL (15-30)
[2020-11-07 12:02] LABS: Reflex Lactate? Lactic Acid Added
[2020-11-07 12:55] LABS: Ethanol < 10 mg/dL; ~Lactic Acid-LAB USE ONLY 2.2 mmol/L (0.5-2.0)
[2020-11-07 14:24] LABS: Reflex Lactate? 2 Y
[2020-11-07 15:25] LABS: ~Lactic Acid-LAB USE ONLY 1.7 mmol/L (0.5-2.0)
--- NOTE | 2020-11-07 15:30 | PM.IMHP ---
History of Present Illness Date of Service: 11/07/20 Chief Complaint: syncope, left hip pain 65M presented with several episodes of syncope over the past week. he states this is the first time this has happened to him. he walks around and suddenly passes out. he fell on his left side and actually came to the ED for pain in his left hip from the fall and not for the sycnope. trauma work up was negative. he denies chest pain, sob, fever, chills. he is on several antihypertensives, no new meds. orthostatics positive in ED and DAVINA on ckd Review of Systems Review of Systems: Constitutional: Denies fever, denies Chills Eyes: denies blurry vision ENT: denies sore throat CVS: denies chest pain Respiratory: Denies dyspnea GI: no abdominal pain : denies dysuria MSK: neck pain Skin: denies rash Neuro: denies specific motor weakness Psych: denies suicidal ideation Endocrine: denies heat/cold intoleratnce Hematologic: denies easy bleeding Allergy: denies hives [facility] Medical History Arthritis CKD (chronic kidney disease), stage III Diabetic polyneuropathy associated with type 2 diabetes mellitus Hypertension Hypertriglyceridemia Lumbar spondylosis Lumbar stenosis Obesity due to excess calories Proteinuria Type 2 diabetes mellitus with other diabetic kidney complication Family History Father Medical history unknown Mother No problems noted. Maternal Grandmother Medical history unknown Family history: reviewed and not pertinent Surgical History H/O left knee surgery History of back surgery History of lumbar surgery Hx of eye surgery Social History Household Members: None Alcohol intake: never Smoking Status: Never smoker Tobacco Type: Cigarette Smoked in Last 30 Days: No Advance Directives: Yes Advance Directives Information Provided: No Advance Directives on File: No Meds Allergies Allergy/AdvReac Type Severity Reaction Status Date / Time Penicillins [PENICILLINS] Allergy Unknown RASH Verified 08/24/20 11:34 Active Medications: Current Medications Generic Name Dose Route Start Last Admin Trade Name Freq PRN Reason Stop Dose Admin Pharmacy Consult 1 each 11/07/20 09:30 Consult Rx Perform Med Rec MISCELLANE ONCE PRN Consult order Home Medications Medication Instructions Recorded Confirmed Last Taken Type atorvastatin 20 mg tablet 20 mg PO DAILY 04/14/20 11/07/20 Unknown History blood sugar diagnostic #10 ea 04/14/20 10/13/20 Unknown History fenofibrate nanocrystallized 145 145 mg PO DAILY 04/14/20 11/07/20 Unknown History mg tablet lancets 28 gauge #100 ea 04/14/20 10/13/20 Unknown History lorazepam 1 mg tablet 1 mg PO BID 04/14/20 11/07/20 Unknown History pen needle, diabetic 32 gauge x #50 ea 04/14/20 10/13/20 Unknown History sertraline 50 mg tablet 50 mg PO DAILY 04/14/20 11/07/20 Unknown History pen needle, diabetic 31 gauge x #1200 ea 10/13/20 10/13/20 Unknown History 11/19 gabapentin 1 cap PO TID 11/07/20 11/07/20 Unknown History latanoprost 1 drp OPHTHALMIC (EYE) BEDTIME 11/07/20 11/07/20 Unknown History Physical Exam Vital Signs and Narrative: Vital Signs: Last Vital Signs Pulse 84 11/07/20 14:35 Resp 16 11/07/20 14:27 BP 86/47 L 11/07/20 14:35 Pulse Ox 98 11/07/20 14:27 Body Mass Index 39.5 General: no acute distress HEENT: atraumatic Neck: normal to visual inspection CVS: S1, S2, RRR Resp: CTA bilateral Chest: non tender GI: soft, non tender, non distended : no CVA tenderness Skin: no rashes Extremities: no edema Neuro: Oriented X3, grossly intact Psych: cooperative Results Labs CBC and Chem 7: 11/07/20 09:58 11/07/20 09:58 Labs: Laboratory Results - last 24 hr 11/07/20 11/07/20 11/07/20 09:56 09:57 09:58 MCV 92.0 MCH 29.7 MCHC 32.3 RDW 16.6 H Plt Count 211 MPV 13.6 H Immature Gran % (Auto) 0.4 Neut % (Auto) 61.9 Lymph % (Auto) 24.9 [place] % (Auto) 7.1 Eos % (Auto) 5.3 H Baso % (Auto) 0.4 Lymph # (Auto) 2.3 [place] # (Auto) 0.7 Eos # (Auto) 0.5 H Baso # (Auto) 0.0 Abs Immat Gran (auto) 0.04 H Absolute Neuts (auto) 5.8 Absolute Nucleated RBC 0.000 Nucleated RBC % (auto) 0.0 PT INR APTT Anion Gap Estim Creat Clear Calc Estimated GFR Random Glucose Lactic Acid 4.3 H* Lactic Acid Fup @ 2Hr Lactic Acid Fup @ 4Hr Calcium Magnesium Total Bilirubin Direct Bilirubin AST ALT Alkaline Phosphatase Total Creatine Kinase Troponin I High Sens B-Natriuretic Peptide Total Protein Albumin Lipase Urine Color Urine Appearance Urine pH Ur Specific Moore Urine Protein Urine Glucose (UA) Urine Ketones Urine Blood Urine Nitrite Ur Leukocyte Esterase Salicylates Urine Opiates Screen Acetaminophen Ur Barbiturates Screen Ur Phencyclidine Scrn Ur Amphetamines Screen U Benzodiazepines Scrn Urine Cocaine Screen U Marijuana (THC) Screen Ethyl Alcohol Coronavirus (PCR) NEGATIVE Influenza Type A (PCR) NEGATIVE Influenza Type B (PCR) NEGATIVE RSV RNA Qual (PCR) NEGATIVE 11/07/20 11/07/20 11/07/20 09:58 09:58 09:58 MCV MCH MCHC RDW Plt Count MPV Immature Gran % (Auto) Neut % (Auto) Lymph % (Auto) [place] % (Auto) Eos % (Auto) Baso % (Auto) Lymph # (Auto) [place] # (Auto) Eos # (Auto) Baso # (Auto) Abs Immat Gran (auto) Absolute Neuts (auto) Absolute Nucleated RBC Nucleated RBC % (auto) PT 11.6 INR 1.0 APTT 38.4 H Anion Gap 18 Estim Creat Clear Calc 33.2 Estimated GFR 23 Random Glucose 160 H Lactic Acid Lactic Acid Fup @ 2Hr Lactic Acid Fup @ 4Hr Calcium 9.7 Magnesium 2.4 Total Bilirubin 0.6 Direct Bilirubin 0.3 AST 59 H ALT 47 H Alkaline Phosphatase 79 Total Creatine Kinase 662 H Troponin I High Sens < 3.5 B-Natriuretic Peptide < 10 Total Protein 7.3 Albumin 4.2 Lipase 56 Urine Color Urine Appearance Urine pH Ur Specific Moore Urine Protein Urine Glucose (UA) Urine Ketones Urine Blood Urine Nitrite Ur Leukocyte Esterase Salicylates < 5.0 L Urine Opiates Screen Acetaminophen < 1 Ur Barbiturates Screen Ur Phencyclidine Scrn Ur Amphetamines Screen U Benzodiazepines Scrn Urine Cocaine Screen U Marijuana (THC) Screen Ethyl Alcohol Coronavirus (PCR) Influenza Type A (PCR) Influenza Type B (PCR) RSV RNA Qual (PCR) 11/07/20 11/07/20 11/07/20 10:15 10:15 12:20 MCV MCH MCHC RDW Plt Count MPV Immature Gran % (Auto) Neut % (Auto) Lymph % (Auto) [place] % (Auto) Eos % (Auto) Baso % (Auto) Lymph # (Auto) [place] # (Auto) Eos # (Auto) Baso # (Auto) Abs Immat Gran (auto) Absolute Neuts (auto) Absolute Nucleated RBC Nucleated RBC % (auto) PT INR APTT Anion Gap Estim Creat Clear Calc Estimated GFR Random Glucose Lactic Acid Lactic Acid Fup @ 2Hr Lactic Acid Fup @ 4Hr Calcium Magnesium Total Bilirubin Direct Bilirubin AST ALT Alkaline Phosphatase Total Creatine Kinase Troponin I High Sens B-Natriuretic Peptide Total Protein Albumin Lipase Urine Color YELLOW Urine Appearance CLEAR Urine pH 5.5 Ur Specific Moore 1.020 Urine Protein NEG Urine Glucose (UA) NEG Urine Ketones NEG Urine Blood NEG Urine Nitrite NEG Ur Leukocyte Esterase NEG Salicylates Urine Opiates Screen POSITIVE H Acetaminophen Ur Barbiturates Screen Not Detected Ur Phencyclidine Scrn Not Detected Ur Amphetamines Screen Not Detected U Benzodiazepines Scrn Not Detected Urine Cocaine Screen Not Detected U Marijuana (THC) Screen Not Detected Ethyl Alcohol < 10 Coronavirus (PCR) Influenza Type A (PCR) Influenza Type B (PCR) RSV RNA Qual (PCR) 11/07/20 11/07/20 12:20 15:05 MCV MCH MCHC RDW Plt Count MPV Immature Gran % (Auto) Neut % (Auto) Lymph % (Auto) [place] % (Auto) Eos % (Auto) Baso % (Auto) Lymph # (Auto) [place] # (Auto) Eos # (Auto) Baso # (Auto) Abs Immat Gran (auto) Absolute Neuts (auto) Absolute Nucleated RBC Nucleated RBC % (auto) PT INR APTT Anion Gap Estim Creat Clear Calc Estimated GFR Random Glucose Lactic Acid Lactic Acid Fup @ 2Hr 2.2 H* Lactic Acid Fup @ 4Hr 1.7 Calcium Magnesium Total Bilirubin Direct Bilirubin AST ALT Alkaline Phosphatase Total Creatine Kinase Troponin I High Sens B-Natriuretic Peptide Total Protein Albumin Lipase Urine Color Urine Appearance Urine pH Ur Specific Moore Urine Protein Urine Glucose (UA) Urine Ketones Urine Blood Urine Nitrite Ur Leukocyte Esterase Salicylates Urine Opiates Screen Acetaminophen Ur Barbiturates Screen Ur Phencyclidine Scrn Ur Amphetamines Screen U Benzodiazepines Scrn Urine Cocaine Screen U Marijuana (THC) Screen Ethyl Alcohol Coronavirus (PCR) Influenza Type A (PCR) Influenza Type B (PCR) RSV RNA Qual (PCR) Imaging Radiologist's Impressions: Impressions Cervical Spine CT 11/07/20 09:30 IMPRESSION: Head CT: Unremarkable exam. Cervical spine CT: Multilevel degenerative changes. No fracture or dislocation seen. Head CT 11/07/20 09:30 IMPRESSION: Head CT: Unremarkable exam. Cervical spine CT: Multilevel degenerative changes. No fracture or dislocation seen. Hip X-Ray 11/07/20 09:30 IMPRESSION: Unremarkable chest exam. Degenerative disc changes lumbar spine with moderate ventral spondylosis. No acute fracture or lytic process seen. Small enthesophytes along the lateral acetabulum and lesser trochanter right hip. There is no visible acute fracture involving the pelvic or bilateral hip joints. Chest X-Ray 11/07/20 09:35 IMPRESSION: Unremarkable chest exam. Degenerative disc changes lumbar spine with moderate ventral spondylosis. No acute fracture or lytic process seen. Small enthesophytes along the lateral acetabulum and lesser trochanter right hip. There is no visible acute fracture involving the pelvic or bilateral hip joints. Lumbar Spine X-Ray 11/07/20 09:35 IMPRESSION: Unremarkable chest exam. Degenerative disc changes lumbar spine with moderate ventral spondylosis. No acute fracture or lytic process seen. Small enthesophytes along the lateral acetabulum and lesser trochanter right hip. There is no visible acute fracture involving the pelvic or bilateral hip joints. Pelvis X-Ray 11/07/20 09:35 IMPRESSION: Unremarkable chest exam. Degenerative disc changes lumbar spine with moderate ventral spondylosis. No acute fracture or lytic process seen. Small enthesophytes along the lateral acetabulum and lesser trochanter right hip. There is no visible acute fracture involving the pelvic or bilateral hip joints. Lumbar Spine CT 11/07/20 11:48 IMPRESSION: Unremarkable pelvis exam no bony abnormality seen. Degenerative disc changes L2-L3-L4 disc levels with upper lumbar spine and moderate ventral spondylosis Mild canal stenosis secondary to disc bulge/osteophyte complex at L3-L4 and L4-L5 disc levels. Pelvis CT 11/07/20 11:48 IMPRESSION: Unremarkable pelvis exam no bony abnormality seen. Degenerative disc changes L2-L3-L4 disc levels with upper lumbar spine and moderate ventral spondylosis Mild canal stenosis secondary to disc bulge/osteophyte complex at L3-L4 and L4-L5 disc levels. Assessment and Plan (1) DAVINA (acute kidney injury): Status: Acute (2) Multiple falls: Status: Acute 65M presented with multiple syncopal episodes found to have orthostatic hypotension and davina syncope likely due to orthostatic hypotension hold antihypertensives IVF monitor on telemetry check echo PT eval DAVINA on CKD III IVF, monitor DM inuslin lactic acidosis likely due to dehydration, hypotension no evidence of sepsis elevated lfts likely NAFLD
--- NOTE | 2020-11-07 17:07 | PC.NURSE ---
Pt alert and oriented. Present to ED s/p fall two days ago. Pt c/o right lower back pain. Pain meds given as ordered with good effect as stated by pt. 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 Pt ready for discharge.
[2020-11-07] MEDS: Heparin Sodium,Porcine 5,000 UNIT/ML VIAL 5000 UNIT SUBCUT (17:52)
[2020-11-07] MEDS: 0.9 % Sodium Chloride Flush 3 ML SYRINGE IVFLUSH (17:57)
[2020-11-07 18:03] LABS: Glucose, Whole Blood 177 mg/dL (60-115)
[2020-11-07] MEDS: Lactated Ringers 1,000 ML 80 ML IVCONT (18:15)
[2020-11-07] MEDS: Insulin Lispro 100 UNIT/ML 3 ML VIAL SUBCUT ×2 (18:17→21:50)
--- NOTE | 2020-11-07 18:44 | PC.NURSE ---
Pt alert and oriented, presents to ED with syncopal episodes no LOC. Orthos +. B/P soft throughout shift. Medication given as charted. Pt awaiting transfer to unit.
--- NOTE | 2020-11-07 19:25 | PC.NURSE ---
REPORT TO RN ON IMC, PT TO FLOOR ON STRETCHER. PT LEFT ED IN NAD. PT ALERT, RESPIRATIONS EASY, N/L. SKIN W/D.
[2020-11-07 20:33] LABS: Glucose, Whole Blood 301 mg/dL (60-115)
[2020-11-07] MEDS: Insulin Glargine,Hum.rec.anlog 100 UNIT/ML 10 ML VIAL 55 UNIT SUBCUT (21:49)
[2020-11-07] MEDS: oxyCODONE HCl Immed Release 5 MG TABLET PO (21:51)
[2020-11-08] VITALS (8 sets, daily range): BP systolic 84–137; BP diastolic 41–71; PULSE 55–88; RESP 16–20; TEMP 36–36.9; O2SAT 94–97
[2020-11-08] MEDS: Heparin Sodium,Porcine 5,000 UNIT/ML VIAL 5000 UNIT SUBCUT ×4 (02:34→23:29)
[2020-11-08] MEDS: oxyCODONE HCl Immed Release 5 MG TABLET PO ×4 (05:06→23:29)
[2020-11-08 06:45] LABS: MANUAL DIFF FLAG SCAN; SCAN SMEAR FLAG 1
[2020-11-08 06:46] LABS: Anion Gap 12 (12-20); Blood Urea Nitrogen 38 mg/dL (9-16); Calcium 8.4 mg/dL (8.4-10.2); Carbon Dioxide 27 mmol/L (22-29); Chloride 105 mmol/L (96-108); Creatinine Clr Calc Pharmacy 42.1; Estimated Glomerular Filt Rate 31; Glucose Random 160 mg/dL (60-115); Potassium 4.2 mmol/L (3.3-5.1); Sodium 140 mmol/L (135-145)
[2020-11-08 06:47] LABS: Basophils Percent Auto 0.6 % (0-2); Eosinophils Absolute Auto 0.4 X10*3/uL (0.0-0.4); Eosinophils Percent Auto 5.3 % (0-4); Hematocrit 34.7 % (42-52); Hemoglobin 11.2 g/dl (14.0-18.0); Imm Gran Abs Auto 0.04 X10*3/uL (0.00-0.03); Imm Gran Pct Auto 0.6 % (0.0-0.4); Lymphocytes Absolute Auto 1.7 X10*3/uL (1.2-4.9); Lymphocytes Percent Auto 23.9 % (20-40); Mean Corpuscular HGB Conc 32.3 g/dl (31.0-36.0); Mean Corpuscular Hemoglobin 29.6 pg (27.0-33.0); Mean Corpuscular Volume 91.8 fL (80-98); Monocytes Absolute Auto 0.5 X10*3/uL (0.1-1.2); Monocytes Percent Auto 7.5 % (2-11); Neutrophils Absolute Auto 4.5 X10*3/uL (2.0-8.3); Neutrophils Percent Auto 62.1 % (45-73); Platelet Count 184 X10*3/uL (160-400); Red Blood Count 3.78 X10*6/uL (4.60-5.80); Red Cell Distribution Width 16.6 % (11.0-16.0); White Blood Count 7.2 X10*3/uL (4.8-10.8)
[2020-11-08 06:52] LABS: PLT ABN DIST 1
[2020-11-08 07:22] LABS: Glucose, Whole Blood 145 mg/dL (60-115)
[2020-11-08] MEDS: Lactated Ringers 1,000 ML 80 ML IVCONT ×2 (08:01→22:36)
[2020-11-08] MEDS: 0.9 % Sodium Chloride 500 ML IV (08:07)
[2020-11-08] MEDS: Aspirin Enteric Coated 81 MG TABLET.DR PO (08:08)
[2020-11-08] MEDS: Atorvastatin Calcium 20 MG TABLET PO (08:08)
[2020-11-08] MEDS: Sertraline HCL 50 MG TABLET PO (08:08)
[2020-11-08] MEDS: 0.9 % Sodium Chloride Flush 3 ML SYRINGE IVFLUSH ×2 (08:08→23:29)
[2020-11-08] MEDS: Cholecalciferol (Vitamin D3) 25 MCG TABLET PO (08:08)
[2020-11-08 11:14] LABS: Glucose, Whole Blood 189 mg/dL (60-115)
[2020-11-08] MEDS: Insulin Lispro 100 UNIT/ML 3 ML VIAL SUBCUT ×3 (11:15→20:22)
--- NOTE | 2020-11-08 11:42 | MHC.CM.PN ---
CM met with Patient at Bedside. Patient lives alone in an apartment and he uses a walker to assist with mobility. Patient receives [employer] hours/week and his goal is to return home and resume those services. PT is recommending STR. CM has initiated and will follow for dc planning. Patient is agreeable to a referral to [facility] for home PT. PCP is Dr. Tram Castellanos.
--- NOTE | 2020-11-08 14:03 | HO.PM.IMPN ---
Subjective Subjective Date of Service: 11/08/20 Interval History: seen in follow up for syncope, DAVINA seen and examined this morning feels better than yesterday Denies dizziness, chest pain, palpitations Review of Systems Review of Systems: Yes all other systems are reviewed and are negative Constitutional Constitutional: Denies chills and Denies fever(s) Cardiovascular Cardiovascular: Denies chest pain Respiratory Respiratory: Denies cough Gastrointestinal Gastrointestinal: Denies abdominal pain Physical Exam Vital Signs: Vital Signs: Last Vital Signs Temp 97.2 F 11/08/20 12:00 Pulse 88 11/08/20 12:00 Resp 20 11/08/20 12:00 BP 127/64 11/08/20 12:00 Pulse Ox 96 11/08/20 12:00 Body Mass Index 39.5 Const: General: comfortable, no acute distress, alert and awake Nutritional Appearance: well nourished Orientation/consciousness: patient oriented x3 HENMT: Head: Yes normocephalic and Yes atraumatic Eyes: Sclerae: sclerae normal Chest: Chest palpation & inspection: normal inspection of the chest Resp: Effort & Inspection: normal respiratory effort and no respiratory distress Auscultation: clear to auscultation bilaterally Cardio: Rate: regular rate Rhythm: regular rhythm GI: Palpation (GI): Soft to palpation and nontender Neuro: General: patient oriented x3 Cranial nerves: Yes CN's II-XII intact bilaterally and Yes Bilaterally intact EOM present Objective Data Current Medications Generic Name Dose Route Start Last Admin Trade Name Freq PRN Reason Stop Dose Admin Aspirin 81 mg 11/08/20 09:00 11/08/20 08:08 Aspirin Enteric Coated 81 Mg Tablet. PO 81 mg DAILY IMTIAZ Administration Atorvastatin Calcium 20 mg 11/08/20 09:00 11/08/20 08:08 Atorvastatin Calcium 20 Mg Tablet PO 20 mg DAILY IMTIAZ Administration Heparin Sodium (Porcine) 5,000 unit 11/07/20 16:14 11/08/20 08:08 Heparin Sodium,Porcine 5,000 Unit/Ml Vial SUBCUT 5,000 unit Q8H IMTIAZ Administration Lactated Ringer's 1,000 mls @ 80 mls/hr 11/07/20 16:14 11/08/20 09:32 Lr IVCONT 80 mls/hr .[id number] IMTIAZ Infusion Insulin Glargine 55 unit 11/07/20 21:00 11/07/20 21:49 Insulin Glargine,Hum.Rec.Anlog 100 Unit/Ml 10 Ml Vial SUBCUT 55 unit DAILY@2100 IMTIAZ Administration Insulin Human Lispro 0 unit 11/07/20 16:30 11/08/20 11:15 Insulin Lispro 100 Unit/Ml 3 Ml Vial SUBCUT 2 unit QIDACHS IMTIAZ Administration Protocol Latanoprost 1 drop 11/07/20 21:00 11/07/20 22:03 Latanoprost 0.005 % Ophth Maria Eugenia 2.5 Ml Drops EYE-BOTH Not Given [facility] Oxycodone HCl 5 mg 11/07/20 16:14 11/08/20 11:15 Oxycodone Hcl Immed Release 5 Mg Tablet PO 5 mg Q6H PRN Administration Pain, Severe (Pain Scale 7-10) Pharmacy Consult 1 each 11/07/20 09:30 Consult Rx Perform Med Rec MISCELLANE ONCE PRN Consult order Sertraline HCl 50 mg 11/08/20 09:00 11/08/20 08:08 Sertraline Hcl 50 Mg Tablet PO 50 mg DAILY IMTIAZ Administration Sodium Chloride 3 ml 11/07/20 16:14 11/08/20 08:08 0.9 % Sodium Chloride Flush 3 Ml Syringe IVFLUSH 3 ml QSHIFT IMTIAZ Administration Vitamin D 25 mcg 11/08/20 09:00 11/08/20 08:08 Cholecalciferol (Vitamin D3) 25 Mcg Tablet PO 25 mcg DAILY IMTIAZ Administration Labs CBC & Chem 7: 11/08/20 05:25 11/08/20 05:25 Assessment and Plan (1) DAVINA (acute kidney injury): Status: Acute (2) Syncope: Status: Acute Assessment and Plan: This is a 65-year-old male with history of hypertension, diabetes, hyperlipidemia who presented to the emergency room with multiple syncopal events and hip pain found to have orthostatic hypotension Syncope Related to orthostatic hypotension. Blood pressure low this morning Trop negative. ECHO showing preserved ejection fraction with no obvious valvular pathology -continue IV fluid -repeat orthostatic blood pressures in a.m. -amlodipine, benazepril, furosemide, HCTZ on hold DAVINA on CKD3 SCr 2.76 on admission, trending down to 2.18. -Continue IVF -Follow BMP Diabetes -hold metformin, trulicity -continue insulin -SSI, POC, ada diet lactic acidosis resolved. no evidence of sepsis Hyperlipidemia -Hold statin, fenofibrate Mood Continue sertraline dvt ppx - heparin attending: Dr. Bush
[2020-11-08 16:11] LABS: Glucose, Whole Blood 215 mg/dL (60-115)
--- NOTE | 2020-11-08 16:14 | CA_ITS ---
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 The visually estimated ejection fraction is between 55-60%. - No obvious valvular pathology seen on this study. Findings Left Ventricle Normal left ventricular cavity size. There is mildly increased left ventricular wall thickness. The left ventricular systolic function is normal. The visually estimated ejection fraction is between 55-60%. There is no evidence of regional wall motion abnormalities. Diastolic function is normal for age. Right Ventricle Normal right ventricular cavity size and systolic function. Atria The left atrium is normal in size. The right atrium is normal in size. Aortic Valve There is a normal trileaflet aortic valve. There is no aortic valve stenosis. There is no aortic valve regurgitation. Mitral Valve The mitral valve appears normal. There is trace mitral valve regurgitation. There is no mitral valve stenosis. Pulmonic Valve The pulmonic valve was not well visualized. There is trace to mild pulmonic valve regurgitation. Tricuspid Valve Normal tricuspid valve structure. There is trace tricuspid valve regurgitation. The pulmonary artery systolic pressure is normal. Great Vessels The aortic annulus, sinuses of valsalva, and asc aorta are normal in size. Venous The inferior vena cava is normal in size and collapses greater than 50% with inspiration. Pericardium/Pleural There is no evidence of pericardial effusion. Prior Study Comparison No significant change compared to prior study dated: 10/26/2019. Recommendations, Care & Conclusions No obvious valvular pathology seen on this study. Measurements 2D Linear Measurements IVSd: 1.23 0.6-0.9/0.6-1.0 cm LVIDd: 4.26 3.9-5.3/4.2-5.9 cm LVIDd Index: 1.86 2.4-3.2/2.2-3.1 cm/m2 LVIDs: 2.74 2.0-3.6 cm LVPWd: 1.26 0.7-1.1 cm Ao Root: 3.20 2.1-3.5 cm LA Diam: 3.10 2.7-3.8/3.0-4.0 cm LAIDs Index: 1.35 1.5-2.3 cm/m2 LV Mass: 239.45 67-162/88-224 g LV Mass Index: 104.56 43-95/49-115 g/m2 LVOT Diam: 2.20 3.0+(-)1.3 cm 2D Systolic Function EF 4C: 69.60 >55% EF 2C: 59.70 >55% EF BiP: 64.50 >55% Mitral Valve MV Pk E: 0.55 MV PK A: 0.82 MV Decel Time: 187.00 E/A: 0.70 E'Lateral: 9.86 E'Medial: 7.74 E/E' Med: 7.10 E/E' Lat: 5.60 PHT: 55.00 MVA PHT: 4.00 Decel [place]: 2.94 Aortic Valve AoV Pk Jose: 1.24 AoV Mn Jose: 0.78 AoV VTI: 0.26 AoV Pk Grad: 6.00 Aov Mn Grad: 3.00 TREMAYNE Cont.VTI: 2.94 LVOT LVOT Pk Jose: 0.95 LVOT Mn Jose: 0.55 LVOT VTI: 0.20 LVOT Pk Grad: 4.00 LVOT Mn Grad: 2.00 LVOT Diam: 2.20 LVOT Area: 3.80 Diastolic Function MV Pk E: 0.55 MV Pk A: 0.82 E/A: 0.70 E'Medial: 7.74 E/E' Med: 7.10 E' Laterial: 9.86 E/E' Lat: 5.60 Tricuspid Valve TR Pk Jose: 2.29 TR Pk Grad: 21.00 RA Press: 3.00 Great Vessels Aorta Ao Root-2D: 3.20 2.0-3.7 cm Ao Asc: 3.10 2.1-3.4 cm Pulmonary Valve PV Pk Jose: 0.99 Peak PV Grad: 4.00 Updated in Other Vendor System with Status of Final Yuri Neri MD electronically signed on 11/08/2020 11:55:10 AM with status of Final
[2020-11-08 20:12] LABS: Glucose, Whole Blood 175 mg/dL (60-115)
[2020-11-08] MEDS: Insulin Glargine,Hum.rec.anlog 100 UNIT/ML 10 ML VIAL 55 UNIT SUBCUT (20:22)
[2020-11-08] MEDS: Latanoprost 0.005 % Ophth Sol 2.5 ML DROPS 1 DROP EYE-BOTH (20:23)
[2020-11-09] VITALS (7 sets, daily range): BP systolic 106–149; BP diastolic 58–79; PULSE 59–89; RESP 19–20; TEMP 36.2–36.5; O2SAT 96–98
[2020-11-09 07:19] LABS: Glucose, Whole Blood 150 mg/dL (60-115)
[2020-11-09] MEDS: Aspirin Enteric Coated 81 MG TABLET.DR PO (07:37)
[2020-11-09] MEDS: 0.9 % Sodium Chloride Flush 3 ML SYRINGE IVFLUSH (07:37)
[2020-11-09] MEDS: Heparin Sodium,Porcine 5,000 UNIT/ML VIAL 5000 UNIT SUBCUT (07:37)
[2020-11-09] MEDS: Cholecalciferol (Vitamin D3) 25 MCG TABLET PO (07:37)
[2020-11-09] MEDS: Sertraline HCL 50 MG TABLET PO (07:37)
[2020-11-09 08:23] LABS: Anion Gap 14 (12-20); Blood Urea Nitrogen 27 mg/dL (9-16); Calcium 9.1 mg/dL (8.4-10.2); Carbon Dioxide 26 mmol/L (22-29); Chloride 107 mmol/L (96-108); Estimated Glomerular Filt Rate 41; Glucose Random 160 mg/dL (60-115); Potassium 4.7 mmol/L (3.3-5.1); Sodium 142 mmol/L (135-145)
--- NOTE | 2020-11-09 10:26 | PM.DS ---
DS: Providers Provider Date of Service: 11/09/20 Date of admission: 11/07/20 15:25 Primary care physician: Tram Álvarez MD DS: Diagnosis Discharge Diagnosis (1) DAVINA (acute kidney injury): Status: Acute (2) Syncope: Status: Acute (3) Orthostatic hypotension: Status: Acute DS: Medications Discharge Medications Home Medications: Home Medications Medication Instructions Recorded Confirmed atorvastatin 20 mg tablet 20 mg PO DAILY 04/14/20 11/07/20 blood sugar diagnostic #10 ea 04/14/20 10/13/20 fenofibrate nanocrystallized 145 145 mg PO DAILY 04/14/20 11/07/20 mg tablet lancets 28 gauge #100 ea 04/14/20 10/13/20 lorazepam 1 mg tablet 1 mg PO BID 04/14/20 11/07/20 pen needle, diabetic 32 gauge x #50 ea 04/14/20 10/13/20 sertraline 50 mg tablet 50 mg PO DAILY 04/14/20 11/07/20 pen needle, diabetic 31 gauge x #1200 ea 10/13/20 10/13/2011/19 gabapentin 1 cap PO TID 11/07/20 11/07/20 latanoprost 1 drp OPHTHALMIC (EYE) BEDTIME 11/07/20 11/07/20 Previous Rx's Medication Instructions Recorded amlodipine 5 mg tablet 5 mg PO DAILY #30 tab 04/27/20 aspirin 81 mg tablet,delayed 81 mg PO DAILY #30 tab 04/27/20 release ketoconazole 2 % shampoo 1 appl TOPICAL 3XW 30 Days #120 ml 08/24/20 furosemide 20 mg tablet 20 mg PO DAILY #90 tab 09/18/20 cholecalciferol (vitamin D3) 25 25 mcg PO DAILY #30 tab 09/23/20 mcg (1,000 unit) tablet insulin aspart U-100 100 unit/mL See Rx Instructions SUBCUT TID 30 10/13/20 (3 mL) subcutaneous pen Days #30 ml lancets #100 ea 10/13/20 insulin glargine 100 unit/mL (3 55 unit SUBCUT QPM #30 ml 10/16/20 mL) subcutaneous pen blood sugar diagnostic #100 ea 10/17/20 blood-glucose meter #1 ea 10/17/20 dulaglutide 1.5 mg/0.5 mL 1.5 mg SUBCUT QWEEK #2 ml 10/19/20 subcutaneous pen injector metformin 500 mg tablet 500 mg PO BID #56 tab 10/19/20 hydrochlorothiazide 25 mg tablet 25 mg PO DAILY #30 tab 10/29/20 benazepril 40 mg tablet 40 mg PO DAILY #30 tab 10/30/20 oxycodone 5 mg tablet 5 mg PO TID PRN 30 Days #90 tab 10/30/20 walker #1 ea 11/08/20 DS: Summary Hospital Course Hospital Course: 65M presented with several episodes of syncope over the past week. he states this is the first time this has happened to him. he walks around and suddenly passes out. he fell on his left side and actually came to the ED for pain in his left hip from the fall and not for the sycnope. trauma work up was negative. he denies chest pain, sob, fever, chills. he is on several antihypertensives, no new meds. orthostatics positive in ED and DAVINA on ckd Syncope. Leg related to orthostatic hypotension. Orthostatic blood pressures positive on admission and blood pressure was low into the 80s systolic. Antihypertensives were placed on hold on admission. Patient was treated with IV fluid. Gradually blood pressure improved and orthostatic blood pressures were negative on day of discharge. Patient is able to ambulate without dizziness. He is instructed to hold his HCTZ, furosemide, benazepril. He will resume his Norvasc. Patient was evaluated by Physical therapy who recommended short-term rehab however the patient has declined and prefers to return home. He was able to ambulate with his walker without assistance. He should call to schedule follow-up appointment with his PCP. DAVINA. Noted on admission creatinine was 2.76 up from baseline 1.5. Furosemide, HCTZ and benazepril were held and he was treated with IVF. His renal function improved to 1.67. Furosemide, HCTZ, benazepril will be held on discharge. Repeat BMP should be checked in 1 week. Antihypertensives can be resumed based on outcome of lab work. Patient should call PCP to schedule follow-up appointment. Time Spent with Patient Time attestation: Total time spent providing and/or coordinating discharge services: Discharge coordination time: Greater than 30 minutes Physical Exam Vital Signs: Vital Signs: Last Vital Signs Temp 97.4 F 11/09/20 08:00 Pulse 89 11/09/20 08:18 Resp 20 11/09/20 08:00 BP 147/79 H 11/09/20 08:18 Pulse Ox 97 11/09/20 08:00 Body Mass Index 39.5 Const: General: comfortable, no acute distress, alert and awake Nutritional Appearance: well nourished Orientation/consciousness: patient oriented x3 HENMT: Head: Yes normocephalic and Yes atraumatic Eyes: Sclerae: sclerae normal Chest: Chest palpation & inspection: normal inspection of the chest Resp: Effort & Inspection: normal respiratory effort and no respiratory distress Auscultation: clear to auscultation bilaterally Cardio: Rate: regular rate Rhythm: regular rhythm GI: Palpation (GI): Soft to palpation and nontender Neuro: General: patient oriented x3 Cranial nerves: Yes CN's II-XII intact bilaterally and Yes Bilaterally intact EOM present DS: Data Data Completed and Pending Labs on day of discharge: Laboratory Results - last 24 hr 11/08/20 11/08/20 11/08/20 11:10 16:08 20:04 Sodium Potassium Chloride Carbon Dioxide Anion Gap BUN Creatinine Estim Creat Clear Calc Estimated GFR POC Glucose 189 H 215 H 175 H Random Glucose Calcium 11/09/20 11/09/20 07:12 07:40 Sodium 142 Potassium 4.7 Chloride 107 Carbon Dioxide 26 Anion Gap 14 BUN 27 H Creatinine 1.67 H Estim Creat Clear Calc 55.0 Estimated GFR 41 POC Glucose 150 H Random Glucose 160 H Calcium 9.1 D Discharge Plan Discharge Patient Disposition: Home, Self-Care Discharge Diagnosis: Syncope Orthostatic Hypotension DAVINA Referrals: Tram Royal MD [Primary Care Provider] - 1 Week Discharge Medications: Continued amlodipine 5 mg tablet 5 mg PO DAILY Qty: 30 RF: 11 aspirin 81 mg tablet,delayed release (DR/EC) 81 mg PO DAILY Qty: 30 RF: 11 cholecalciferol (vitamin D3) 25 mcg (1,000 unit) tablet 25 mcg PO DAILY Qty: 30 RF: 8 (DME) lancets [Accu-Chek Softclix Lancets] Misc See Rx Instructions .ROUTE .MEDSUPPLY Qty: 100 RF: 11 Lantus Solostar U-100 Insulin 100 unit/mL (3 mL) insulin pen 55 unit subcut QPM Qty: 30 RF: 3 (DME) Accu-Chek Felisa Plus test strp Strip See Rx Instructions .ROUTE .MEDSUPPLY Qty: 100 RF: 11 (DME) blood-glucose meter [Accu-Chek Felisa Plus Meter] Misc See Rx Instructions .ROUTE .MEDSUPPLY Qty: 1 RF: 0 dulaglutide [Trulicity] 1.5 mg/0.5 mL pen injector 1.5 mg subcut QWEEK Qty: 2 RF: 0 oxycodone 5 mg tablet 5 mg PO TID PRN (Reason: pain) 30 Days Qty: 90 RF: 0 (DME) Ultra-Light Rollator Misc See Rx Instructions .ROUTE .MEDSUPPLY Qty: 1 RF: 0 latanoprost 0.005 % drops 1 drp ophthalmic (eye) BEDTIME RF: 0 gabapentin 400 mg capsule 1 cap PO TID RF: 0 ketoconazole 2 % shampoo 1 appl topical 3XW 30 Days Qty: 120 RF: 4 sertraline 50 mg tablet 50 mg PO DAILY RF: 0 atorvastatin 20 mg tablet 20 mg PO DAILY RF: 0 (DME) pen needle, diabetic 32 gauge x 5/32 needle See Rx Instructions ea subcut .MEDSUPPLY Qty: 50 RF: 0 lorazepam 1 mg tablet 1 mg PO BID RF: 0 (DME) lancets 28 gauge misc See Rx Instructions lancet topical TID Qty: 100 RF: 0 (DME) blood sugar diagnostic Strip See Rx Instructions strip .ROUTE .MEDSUPPLY Qty: 10 RF: 0 fenofibrate nanocrystallized 145 mg tablet 145 mg PO DAILY RF: 0 (DME) pen needle, diabetic 31 gauge x 5/16 needle See Rx Instructions ea subcut .MEDSUPPLY Qty: 1200 RF: 0 insulin aspart U-100 [Novolog Flexpen U-100 Insulin] 100 unit/mL (3 mL) insulin pen See Rx Instructions subcut TID 30 Days Qty: 30 RF: 3 Held furosemide 20 mg tablet 20 mg PO DAILY Qty: 90 RF: 2 Hold Instructions: Resume on 11/16/20. Stop taking until repeat labs are checked metformin 500 mg tablet 500 mg PO BID Qty: 56 RF: 0 Hold Instructions: Resume on 11/16/20. Stop taking until repeat labs are checked hydrochlorothiazide 25 mg tablet 25 mg PO DAILY Qty: 30 RF: 6 Hold Instructions: Resume on 11/16/20. Stop taking until repeat labs are checked benazepril 40 mg tablet 40 mg PO DAILY Qty: 30 RF: 2 Hold Instructions: Resume on 11/16/20. Stop taking until repeat lab work is checked. Activity on Discharge: As tolerated Stand Alone Forms: Patient Portal Discharge page Other Ambulatory Orders: Basic Metabolic Panel (Routine) Timeframe: [id number] Facility: [facility] - Location: Laboratory Ordered By: Luz Blount Care Plan Goals: See below Health Concerns: Acute kidney injury Syncope Orthostatic Hypotension Plan of Treatment: Please stop taking HCTZ, lasix, benazepril until you have repeat lab work checked in 1 week Please sit and pause before standing, stand up slowly Please call your PCP to schedule a follow up appointment Assessment: See discharge summary
--- NOTE | 2020-11-09 11:12 | MHC.CM.PN ---
DP Male 65 DX DAVINA discharge to home today. KWAME to resume [employer] services. The Pt has arranged for private transportation to home.
[2020-11-09 11:34] LABS: Glucose, Whole Blood 218 mg/dL (60-115)
[2020-11-09] MEDS: Insulin Lispro 100 UNIT/ML 3 ML VIAL SUBCUT (12:20)
--- NOTE | 2020-11-09 13:13 | W.MHC.F2F ---
Service Date Service Date: 11/09/20 Encounter Date of encounter: 11/09/20 Reasons for Services Reason for physical therapy: home safety and mobility MD Overseeing Care: Tram Álvarez Homebound: Leaving the home is medically contraindicated at this time without the asist of a device and/or another person due th the listed conditions above and below. Reason homebound: unsteady gait / fall risk and weakness related to hospital stay Certification: Based on the above findings, I certify that this patient is confined to the home and needs intermittent [facility] care, physical therapy and/or speech therapy, or continues to need occupational therapy. The patient is under my care, and I have initiated the establishment of the plan of care. The patient will be followed by a physician who will periodically review the plan of care.
== END 2020-11-09 13:16 | disposition home or self-care (01) | DRG 312 ==
LOC: HO.ED 14:55 → HO.EDOVER 15:33 → HO.IMC 16:47
PROVIDERS: Emergency Medicine; Physician Assistant; Physician Assistant Medical; Admitting Provider Internal Medicine; Emergency Provider Internal Medicine; PCP Internal Medicine; Visit Provider Family Medicine
DX: I95.1 Orthostatic hypotension (principal); N17.9 Acute kidney failure, unspecified; E87.2 Acidosis; I12.9 Hypertensive chronic kidney disease with stage 1 through stage 4 chronic kidney disease, or unspecified chronic kidney disease; E11.22 Type 2 diabetes mellitus with diabetic chronic kidney disease; R29.6 Repeated falls; E78.5 Hyperlipidemia, unspecified; Z91.81 History of falling; N18.30 Chronic kidney disease, stage 3 unspecified; Z20.822 Contact with and (suspected) exposure to COVID-19; Z88.0 Allergy status to penicillin; Z79.4 Long term (current) use of insulin; Z79.82 Long term (current) use of aspirin; Z79.899 Other long term (current) drug therapy
CPT/HCPCS: 0241U; 36415; 70450; 71045; 72100; 72125; 72131; 72170; 72192; 73522; 80048; 80076; 80143; 80179; 80307; 80320; 81003; 82550; 82947; 83605; 83690; 83735; 83880; 84484; 85025; 85610; 85730; 93005; 93306; 97110; 97116; 97162; 99219; 99285

== ENCOUNTER 2020-11-14 08:43 | Outpatient (REF) | payer OTHER, SELFPAY ==
[2020-11-14 10:11] LABS: Alanine Aminotransferase 51 U/L (0-40); Albumin Level 4.3 g/dL (3.5-5.0); Alkaline Phosphatase 85 U/L (39-117); Anion Gap 18 (12-20); Aspartate Amino Transferase 37 U/L (5-37); Bilirubin Total 0.7 mg/dL (0.0-1.0); Blood Urea Nitrogen 42 mg/dL (9-16); Calcium 9.6 mg/dL (8.4-10.2); Carbon Dioxide 25 mmol/L (22-29); Chloride 106 mmol/L (96-108); Cholesterol 120 mg/dL; Estimated Glomerular Filt Rate 26; Glucose Fasting 129 mg/dL (60-99); HDL Cholesterol 21 mg/dL; Potassium 4.7 mmol/L (3.3-5.1); Sodium 144 mmol/L (135-145); Total Protein 7.3 g/dL (6.5-8.0); Triglycerides 455 mg/dL
[2020-11-14 10:29] LABS: Estimated Average Glucose 209 mg/dL; Hemoglobin A1c % 8.9 %
[2020-11-14 10:36] LABS: Creatinine Urine 109.11 mg/dL; Microalbum/Creatinine Ratio Ur 9.1 ug/mg cr
== END 2020-11-14 08:44 | disposition home or self-care (01) ==
LOC: HO.LAB 08:43
PROVIDERS: Absent Provider Physician Assistant Medical; PCP Internal Medicine; Visit Provider Nurse Practitioner Gerontology
DX: E11.29 Type 2 diabetes mellitus with other diabetic kidney complication (principal)
CPT/HCPCS: 36415; 80053; 80061; 82043; 83036

== ENCOUNTER → 2020-11-28 11:32 | Outpatient (BNVA) | payer OTHER, SELFPAY | PROVIDERS: PCP Internal Medicine; Visit Provider Nurse Practitioner Gerontology | DX: E11.29 Type 2 diabetes mellitus with other diabetic kidney complication (principal); E11.42 Type 2 diabetes mellitus with diabetic polyneuropathy; R80.9 Proteinuria, unspecified; I10 Essential (primary) hypertension; E78.1 Pure hyperglyceridemia; E66.01 Morbid (severe) obesity due to excess calories; Z68.37 Body mass index [BMI] 37.0-37.9, adult | CPT/HCPCS: 82947; 99212 ==

== ENCOUNTER 2021-03-02 09:03 | Outpatient (REF) | payer OTHER, SELFPAY ==
[2021-03-02 09:51] LABS: Alanine Aminotransferase 68 U/L (0-40); Albumin Level 4.2 g/dL (3.5-5.0); Alkaline Phosphatase 104 U/L (39-117); Anion Gap 16 (12-20); Aspartate Amino Transferase 65 U/L (5-37); Bilirubin Total 0.3 mg/dL (0.0-1.0); Blood Urea Nitrogen 15 mg/dL (9-16); Calcium 9.2 mg/dL (8.4-10.2); Carbon Dioxide 21 mmol/L (22-29); Chloride 109 mmol/L (96-108); Cholesterol 160 mg/dL; Estimated Glomerular Filt Rate 53; Glucose Fasting 145 mg/dL (60-99); HDL Cholesterol 31 mg/dL; Potassium 4.5 mmol/L (3.3-5.1); Sodium 141 mmol/L (135-145); Total Protein 7.3 g/dL (6.5-8.0); Triglycerides 549 mg/dL
[2021-03-02 10:17] LABS: Creatinine Urine 241.13 mg/dL; Microalbum/Creatinine Ratio Ur 77.1 ug/mg cr
[2021-03-02 11:40] LABS: Reflex LDLD? Yes
[2021-03-04 12:36] LABS: LDL Cholesterol Direct 59 mg/dL (<100)
== END 2021-03-02 09:04 | disposition home or self-care (01) ==
LOC: HO.LAB 09:03
PROVIDERS: PCP Internal Medicine; Visit Provider Nurse Practitioner Gerontology
DX: E11.29 Type 2 diabetes mellitus with other diabetic kidney complication (principal); E11.42 Type 2 diabetes mellitus with diabetic polyneuropathy; R80.9 Proteinuria, unspecified; I10 Essential (primary) hypertension; E78.1 Pure hyperglyceridemia; E66.01 Morbid (severe) obesity due to excess calories; Z68.37 Body mass index [BMI] 37.0-37.9, adult; Z71.3 Dietary counseling and surveillance; Z79.84 Long term (current) use of oral hypoglycemic drugs
CPT/HCPCS: 36415; 80053; 80061; 82043; 82947; 83721; 99212

== ENCOUNTER 2021-04-24 10:12 | Outpatient (REF) | payer OTHER, SELFPAY ==
--- NOTE | ~2021-04-24 | XR_ITS ---
EXAMINATION: XR BILATERAL KNEES XR RIGHT SHOULDER CLINICAL INFORMATION: Bilateral knee and right shoulder pain. COMPARISON: MRI left knee 09/01/2019, x-ray left knee 10/20/2018, AP standing both knees 01/20/2017. TECHNIQUE: 5 views of right shoulder, 2 views each knee. FINDINGS: RIGHT SHOULDER: Some mild degenerative changes present with some minimal sclerosis at the inferior glenoid with some tiny osteophytes. No tendinous calcifications are seen. Mild degenerative changes present at the AC joint. Small osteophyte on the undersurface of the acromion which could be associated with rotator cuff symptoms. RIGHT KNEE: Mild tricompartmental degenerative changes are present predominantly involving the medial and patellofemoral compartment with some minimal narrowing and some marginal osteophytes. No joint effusion is seen. LEFT KNEE: Tricompartmental degenerative changes present with narrowing of both compartments, medial greater than lateral. Small posterior osteophytes are noted from the patella. No significant joint effusion is present. XR/XR shoulder RT min 2V IMPRESSION: Mild degenerative changes in right shoulder and AC joint. Mild degenerative changes in both knees.
--- NOTE | ~2021-04-24 | XR_ITS ---
EXAMINATION: XR BILATERAL KNEES XR RIGHT SHOULDER CLINICAL INFORMATION: Bilateral knee and right shoulder pain. COMPARISON: MRI left knee 09/01/2019, x-ray left knee 10/20/2018, AP standing both knees 01/20/2017. TECHNIQUE: 5 views of right shoulder, 2 views each knee. FINDINGS: RIGHT SHOULDER: Some mild degenerative changes present with some minimal sclerosis at the inferior glenoid with some tiny osteophytes. No tendinous calcifications are seen. Mild degenerative changes present at the AC joint. Small osteophyte on the undersurface of the acromion which could be associated with rotator cuff symptoms. RIGHT KNEE: Mild tricompartmental degenerative changes are present predominantly involving the medial and patellofemoral compartment with some minimal narrowing and some marginal osteophytes. No joint effusion is seen. LEFT KNEE: Tricompartmental degenerative changes present with narrowing of both compartments, medial greater than lateral. Small posterior osteophytes are noted from the patella. No significant joint effusion is present. XR/XR knee LT 2V IMPRESSION: Mild degenerative changes in right shoulder and AC joint. Mild degenerative changes in both knees.
--- NOTE | ~2021-04-24 | XR_ITS ---
EXAMINATION: XR BILATERAL KNEES XR RIGHT SHOULDER CLINICAL INFORMATION: Bilateral knee and right shoulder pain. COMPARISON: MRI left knee 09/01/2019, x-ray left knee 10/20/2018, AP standing both knees 01/20/2017. TECHNIQUE: 5 views of right shoulder, 2 views each knee. FINDINGS: RIGHT SHOULDER: Some mild degenerative changes present with some minimal sclerosis at the inferior glenoid with some tiny osteophytes. No tendinous calcifications are seen. Mild degenerative changes present at the AC joint. Small osteophyte on the undersurface of the acromion which could be associated with rotator cuff symptoms. RIGHT KNEE: Mild tricompartmental degenerative changes are present predominantly involving the medial and patellofemoral compartment with some minimal narrowing and some marginal osteophytes. No joint effusion is seen. LEFT KNEE: Tricompartmental degenerative changes present with narrowing of both compartments, medial greater than lateral. Small posterior osteophytes are noted from the patella. No significant joint effusion is present. XR/XR knee RT 2V IMPRESSION: Mild degenerative changes in right shoulder and AC joint. Mild degenerative changes in both knees.
== END 2021-04-24 10:13 | disposition home or self-care (01) ==
LOC: HO.XRAY 10:12
PROVIDERS: PCP Internal Medicine; Visit Provider Internal Medicine
DX: M25.511 Pain in right shoulder (principal); M25.561 Pain in right knee; M25.562 Pain in left knee
CPT/HCPCS: 73030; 73560

== ENCOUNTER → 2021-07-12 09:54 | Outpatient (BNVA) | payer OTHER, SELFPAY | PROVIDERS: PCP Internal Medicine; Visit Provider Nurse Practitioner Gerontology | DX: E11.29 Type 2 diabetes mellitus with other diabetic kidney complication (principal); E11.42 Type 2 diabetes mellitus with diabetic polyneuropathy; E78.1 Pure hyperglyceridemia; E66.01 Morbid (severe) obesity due to excess calories; R80.9 Proteinuria, unspecified; I10 Essential (primary) hypertension; Z68.37 Body mass index [BMI] 37.0-37.9, adult | CPT/HCPCS: Q3014 ==

== ENCOUNTER 2021-07-24 10:00 | Outpatient (RCR) | payer OTHER, SELFPAY ==
--- NOTE | 2021-06-15 12:21 | MHC.PT.EP ---
[facility] [place] [facility] [place] [facility] [place] Office [address] Stef Bland [address] [phone] F: [phone] F: [phone] F: [phone] F: [phone] Physical Therapy Plan of Care Date of Evaluation: Date of Surgery: 2018 (?) Diagnosis: spinal stenosis lumbar region Assessment: pt presents to physical therapy with pain, decreased range of motion, decreased strength, impaired functional mobility, impaired postural awareness, and gait deviations. pt is a good candidate for skilled PT due to age, potential remediation of impairments, typical disease/condition progression and prognosis, comorbidities, and motivation. pt would benefit from tailored strengthening and stretching exercise program, functional training, gait training, postural re-training, neuromuscular re-education, modalities as needed for pain, equipment safety demonstration. Frequency and Duration: The patient will be seen 2x/wk for 6 wks Short Term Goals: pt will be I w/ HEP to promote self-management of condition, ongoing. pt will improve L quad strength by 1 MMT grade to promote ease in sit<>stand transfer in 3 weeks. pt will improve B hip abduction strength by 1 MMT grade to reduce B Trendelenburg w/ gait on even ground w/ LRAD in 3 weeks. Care Home Goals: pt will report a statistically significant improvement in self-reported outcome measure, Elayne, to promote return to PLOF in 6 weeks. pt will ambulate 5x30' using SPC to progress to LRAD for household distances to access bedroom and bathroom in 6 weeks. pt will report <1/10 low back pain w/ standing for >1 hour to promote return to I showering to improve tolerance for ADLs in 6 weeks. Treatment Plan: Modalities to reduce pain, spasms and effusion. Manual therapy to restore motion and function. Therapeutic exercise to improve strength and flexibility. Neuromuscular re-education for posture and balance. Therapeutic activities to return to functional activities of daily living. Electronically signed by: Lexii Murcia PT, DPT Please sign and return to therapist. Thank you for your referral.
--- NOTE | 2021-07-31 11:26 | MHC.PT.DC ---
[facility] [place] [facility] [place] [facility] [place] Office [address] [facility] [phone] F: [phone] F: [phone] F: [phone] F: [phone] Physical Therapy Discharge Report Diagnosis: spinal stenosis lumbar region Date of Surgery: 2018 (?) Date of Evaluation: 06/15/21 Date of Discharge: 07/31/21 Treatments to Date: 6 Cancellations to Date: 3 No Shows to Date: 5 Discharge Status: Visit Non-compliance Discharge Summary: The patient has no showed a total of 5 appointments. Per [facility] policy he is being discharged for visit non-compliance. The patient was reporting an improvement in his knee symptoms. He is independent with his home exercise program. He was advised how to regress his exercises given his recent eye surgery. He is discharged from this physical therapy plan of care. Electronically signed by: Lexii Murcia PT, DPT Please sign and return to therapist. Thank you for your referral.
== END 2021-07-31 11:27 | disposition home or self-care (01) ==
LOC: HO.PT 10:00
PROVIDERS: PCP Internal Medicine; Visit Provider Internal Medicine
DX: M48.062 Spinal stenosis, lumbar region with neurogenic claudication (principal)
CPT/HCPCS: 97110; 97162

== ENCOUNTER → 2021-08-08 13:03 | Outpatient (BNVA) | payer OTHER, SELFPAY | PROVIDERS: PCP Internal Medicine; Visit Provider Registered Nurse Diabetes Educator | DX: E11.29 Type 2 diabetes mellitus with other diabetic kidney complication (principal) | CPT/HCPCS: 99211 ==

== ENCOUNTER → 2021-08-22 09:59 | Outpatient (BNVA) | payer OTHER, SELFPAY | PROVIDERS: PCP Internal Medicine; Visit Provider Registered Nurse Diabetes Educator | DX: E11.42 Type 2 diabetes mellitus with diabetic polyneuropathy (principal) | CPT/HCPCS: 99211 ==

== ENCOUNTER → 2021-09-07 12:56 | Outpatient (BNVA) | payer OTHER, SELFPAY | PROVIDERS: PCP Internal Medicine; Visit Provider Registered Nurse Diabetes Educator | DX: E11.29 Type 2 diabetes mellitus with other diabetic kidney complication (principal) | CPT/HCPCS: 99211 ==

== ENCOUNTER → 2021-10-10 09:56 | Outpatient (BNVA) | payer OTHER, SELFPAY | PROVIDERS: PCP Internal Medicine; Visit Provider Nurse Practitioner Gerontology | DX: E11.29 Type 2 diabetes mellitus with other diabetic kidney complication (principal); E11.42 Type 2 diabetes mellitus with diabetic polyneuropathy; E78.1 Pure hyperglyceridemia; E66.01 Morbid (severe) obesity due to excess calories; I10 Essential (primary) hypertension; R80.9 Proteinuria, unspecified; Z68.35 Body mass index [BMI] 35.0-35.9, adult; Z79.4 Long term (current) use of insulin; Z79.84 Long term (current) use of oral hypoglycemic drugs | CPT/HCPCS: 82947; 83036; 99212 ==

== ENCOUNTER 2021-11-01 10:12 | Outpatient (REF) | payer OTHER, SELFPAY ==
--- NOTE | ~2021-11-01 | XR_ITS ---
EXAMINATION: XR KNEE AP STANDING CLINICAL INFORMATION: Pain COMPARISON: X-ray 04/24/2021 TECHNIQUE: AP bilateral standing view of the knees was obtained. FINDINGS: Right knee: Mild medial greater than lateral compartment arthritis. No acute osseous abnormality seen on this single radiograph. Left knee: Mild medial greater than lateral compartment arthritis. No acute osseous abnormality seen on this single radiograph. XR/XR knee standing BI IMPRESSION: Mild arthritis in bilateral knees as above.
== END 2021-11-01 10:13 | disposition home or self-care (01) ==
LOC: HO.HOSX 10:12
PROVIDERS: Visit Provider Orthopaedic Surgery
DX: M25.561 Pain in right knee (principal); M25.562 Pain in left knee; E11.40 Type 2 diabetes mellitus with diabetic neuropathy, unspecified
CPT/HCPCS: 73565; 99202

== ENCOUNTER 2021-12-26 18:45 | Outpatient (REF) | payer OTHER, SELFPAY ==
[2021-12-26 19:17] LABS: Creatinine Urine 110.49 mg/dL
[2021-12-26 19:18] LABS: Amphetamine Screen Urine Not Detected (Not Detect); Barbiturates, Urine Not Detected (Not Detect); Benzodiazepines Screen Urine Not Detected (Not Detect); Cannabinoid Screen Urine Not Detected (Not Detect); Cocaine Screen Urine Not Detected (Not Detect); Fentanyl, urine Not Detected (Not Detect); Opiate Screen Urine Not Detected (Not Detect); Phencyclidine Screen Urine Not Detected (Not Detect)
[2022-01-02 09:23] LABS: Codeine, Ur NEGATIVE
[2022-01-02 09:24] LABS: Alphahydroxymidazolam,GCMS Ur NEGATIVE; Alphahydroxytriazolam, GCMS Ur NEGATIVE; Alprazolam, GCMS Urine NEGATIVE; Aminoclonazepam, GCMS Urine NEGATIVE; Flurazepam Metabolite,GCMS Ur NEGATIVE; Hydrocodone, Ur NEGATIVE; Hydromorphone, Ur NEGATIVE; Lorazepam GCMS Urine NEGATIVE; Morphine, Ur NEGATIVE; Nordiazepam, GCMS Urine NEGATIVE; Norhydrocodone, Ur NEGATIVE; Noroxycodone, Ur NEGATIVE; Oxazepam, GCMS Urine NEGATIVE; Oxycodone, Ur NEGATIVE; Oxymorphone, Ur NEGATIVE; Temazepam, GCMS Urine NEGATIVE
== END 2021-12-26 18:46 | disposition home or self-care (01) ==
LOC: HO.LNP 18:45
PROVIDERS: Visit Provider Internal Medicine
DX: M48.062 Spinal stenosis, lumbar region with neurogenic claudication (principal); E11.9 Type 2 diabetes mellitus without complications; Z79.891 Long term (current) use of opiate analgesic
CPT/HCPCS: 80307; 80346; 80364; 80365; 82043

== ENCOUNTER → 2022-04-18 12:54 | Outpatient (BNVA) | payer OTHER, SELFPAY | PROVIDERS: PCP Internal Medicine; Visit Provider Nurse Practitioner Family | DX: M17.0 Bilateral primary osteoarthritis of knee (principal) | CPT/HCPCS: 99202 ==

== ENCOUNTER 2022-04-26 15:02 | Outpatient (REF) | payer OTHER, SELFPAY ==
--- NOTE | ~2022-04-26 | US_ITS ---
EXAMINATION: US RETROPERITONEAL LIMITED (RENAL ONLY) CLINICAL INFORMATION: Chronic kidney disease stage 3a. COMPARISON: CT abdomen and pelvis 03/27/2017 TECHNIQUE: Real-time imaging of the kidneys. FINDINGS: RIGHT KIDNEY: 11.1 x 5.6 x 5.1 cm (SAG x AP x TRV). The kidney is normal in size, contour, and echogenicity. Renal cortical thickness is normal. No calculi or focal parenchymal lesions. No hydronephrosis. LEFT KIDNEY: 11.9 x 6.4 x 4.9 cm (SAG x AP x TRV). The kidney is normal in size, contour, and echogenicity. Renal cortical thickness is normal. No calculi or focal parenchymal lesions. No hydronephrosis. US/US renal BI IMPRESSION: No hydronephrosis.
== END 2022-04-26 15:03 | disposition home or self-care (01) ==
LOC: HO.US 15:02
PROVIDERS: Visit Provider Internal Medicine Hypertension Specialist
DX: N18.31 Chronic kidney disease, stage 3a (principal)
CPT/HCPCS: 76775

== ENCOUNTER → 2022-05-09 08:57 | Outpatient (BNVA) | payer OTHER, SELFPAY | PROVIDERS: PCP Internal Medicine; Visit Provider Physician Assistant | DX: M25.561 Pain in right knee (principal); M25.562 Pain in left knee; E11.40 Type 2 diabetes mellitus with diabetic neuropathy, unspecified | CPT/HCPCS: 99212 ==

== ENCOUNTER 2022-06-12 06:21 | Outpatient (REF) | payer OTHER, SELFPAY | END 2022-06-12 06:22 | disposition home or self-care (01) | LOC: CF 06:21 | PROVIDERS: Visit Provider Internal Medicine | DX: M17.12 Unilateral primary osteoarthritis, left knee (principal); M25.561 Pain in right knee | CPT/HCPCS: 64447 ==

== ENCOUNTER → 2022-06-13 08:48 | Outpatient (BNVA) | payer OTHER, SELFPAY | PROVIDERS: PCP Internal Medicine; Visit Provider Nurse Practitioner Family | DX: M25.561 Pain in right knee (principal); M25.562 Pain in left knee; M17.10 Unilateral primary osteoarthritis, unspecified knee | CPT/HCPCS: Q3014 ==

== ENCOUNTER 2022-06-19 06:15 | Outpatient (REF) | payer OTHER, SELFPAY | END 2022-06-19 06:16 | disposition home or self-care (01) | LOC: CF 06:15 | PROVIDERS: Visit Provider Internal Medicine | DX: M25.561 Pain in right knee (principal) | CPT/HCPCS: 64447 ==

== ENCOUNTER 2022-06-19 09:54 | Outpatient (REF) | payer OTHER, SELFPAY ==
[2022-06-19 10:50] LABS: Hematocrit 49.4 % (42.0-52.0); Hemoglobin 15.7 g/dl (14.0-18.0); Mean Corpuscular HGB Conc 31.8 g/dl (31.0-36.0); Mean Corpuscular Hemoglobin 25.9 pg (27.0-33.0); Mean Corpuscular Volume 81.4 fL (80.0-98.0); Platelet Count 238 X10*3/uL (160-400); Red Blood Count 6.07 X10*6/uL (4.60-5.80); Red Cell Distribution Width 18.2 % (11.0-16.0); White Blood Count 10.5 X10*3/uL (4.8-10.8)
[2022-06-19 14:37] LABS: Alanine Aminotransferase 21 U/L (0-40); Albumin Level 4.3 g/dL (3.5-5.0); Alkaline Phosphatase 88 U/L (39-117); Anion Gap 13 (12-20); Aspartate Amino Transferase 23 U/L (5-37); Bilirubin Total 0.5 mg/dL (0.0-1.0); Blood Urea Nitrogen 21 mg/dL (9-16); Calcium 9.8 mg/dL (8.4-10.2); Carbon Dioxide 28 mmol/L (22-29); Chloride 107 mmol/L (96-108); Estimated Glomerular Filt Rate 48; Glucose Random 161 mg/dL (60-115); Sodium 143 mmol/L (135-145); Total Protein 7.5 g/dL (6.5-8.0)
== END 2022-06-19 09:55 | disposition home or self-care (01) ==
LOC: HO.LAB 09:54
PROVIDERS: PCP Internal Medicine; Visit Provider Internal Medicine Hypertension Specialist
DX: N18.31 Chronic kidney disease, stage 3a (principal)
CPT/HCPCS: 36415; 80053; 85027

== ENCOUNTER → 2022-06-20 08:20 | Outpatient (BNVA) | payer OTHER, SELFPAY | PROVIDERS: PCP Internal Medicine; Visit Provider Nurse Practitioner Family | DX: M17.10 Unilateral primary osteoarthritis, unspecified knee (principal); M25.561 Pain in right knee; M25.562 Pain in left knee | CPT/HCPCS: Q3014 ==

== ENCOUNTER 2022-08-14 12:59 | Day surgery (SDC) | payer OTHER, SELFPAY ==
[2022-08-14 13:07] VITALS: BMI 38.0
[2022-08-14 13:16] VITALS: BP 155/90; PULSE 91; RESP 18; TEMP 36.2; O2SAT 97
[2022-08-14 15:33] VITALS: BP 175/85; PULSE 82; RESP 18; TEMP 36.2; O2SAT 97
[2022-08-14 15:46] VITALS: BP 169/87; PULSE 83; RESP 16; TEMP 37; O2SAT 97
--- NOTE | 2022-08-15 11:20 | MHC.SHP ---
Pre-Procedural Eval Section A Date of Service: 08/14/22 The patient is an INPATIENT: No Changes since office visit: Yes Patient answered all questions The History & Physical has been completed within 30 days and I have reviewed it.: No Section B Chief Complaint: Pain in left knee,Bilateral primary osteoarthritis Relevant Family History (Specify if Yes): No Relevant Social History: None Present Medications: see Short Stay Collaborative assessment Medical History: No relevant PMH History of Previous Operations: No relevant previous surgery Allergies: Allergies Allergy/AdvReac Type Severity Reaction Status Date / Time Penicillins [PENICILLINS] Allergy Intermediate RASH Verified 08/14/22 13:15 pepper (genus Capsicum) AdvReac Intermediate rashes Verified 08/14/22 13:15 Review of Systems Sugical H&P ROS: Negative: Constitution, Cardiovascular and Respiratory Exam Surgical H&P Exam: Normal: HEENT, Normal: Heart and Normal: Lungs Plan Diagnosis/Plan: Unchanged I have reviewed the history and physical and performed a pertinent physical examination on my patient. No changes have occurred unless specified. Time Spent With Patient Time: Total time managing care of this patient today ____ minutes.
--- NOTE | 2022-08-15 11:21 | P.BOP_ITS ---
Brief Operative Note Date of Service: 08/14/22 Pre-op diagnosis: Chronic left knee pain Post-op diagnosis: same Procedure: Temporary left saphenous nerve stimulator placement Implants: Sprint temporary PNS lead Surgeon: Guille De La Garza MD Anesthesia: MAC and local Was an Corporate Relations Manager used for this Procedure?: No Estimated blood loss (mL): 1 Pathology: none sent Condition: stable Disposition: same day
--- NOTE | 2022-08-15 11:23 | P.OP_ITS ---
Operative Note Operative Note Date of Service: 08/14/22 Narrative: Peripheral Nerve Stimulation Temporary Lead Placement, Ultrasound-Guided, Saphenous Nerve, Left ? After the risks, benefits and alternatives were discussed with the patient and informed consentwas obtained, patient was placed in the supine position and padded to foster comfort. Appropriate skin and bony landmarks were identified, and pertinent vascular structures were located. The skin overlying the needle entry site was prepped and draped in sterile fashion. Ultrasound was used to identify the femoral artery, the femoral vein and the saphenous nerve. After identifying and marking the intended target along the course of the saphenous nerve, the skin around the planned entry point and the subcutaneous tissues were injected with local anesthetic. An introducer needle and stimulating probe were assembled, inserted and advanced along the intended course of the saphenous; nerve, taking care to maintain the proper depth of insertion as the introducer was advanced under ultrasound guidance. The introducer needle was delivered to a location in proximity to the nerve taking care not to puncture the femoral artery or the vein. Multiple stimulation parameters were used to deliver stimulation to the saphenous nerve in concert with stimulating at multiple positions around the nerve. Nerve target acquisition was confirmed noting generation of sensory and mild motor effects (paresthesia, muscle tension, etc) in the medial knee, leg and ankle; corresponding to the distribution of the saphenous nerve. Various electrical parameter combinations were tested, and the lead location was adjusted (physica lly relocated under ultrasound guidance) until the patient indicated medial knee paresthesia and tension overlapping the distribution of the patient?s typical region of pain. The stimulating probe was removed from the introducer and a percutaneous lead was guided through the needle and delivered to a location in similar proximity to the nerve. Final location was verified with electrical stimulation and documented. The introducer needle was removed, and the exposed end of the percutaneous lead was attached to an external stimulator unit. Various electrical parameter combinations were again tested until the patient indicated paresthesia and muscle tension overlapping the distribution of the patient?s typical region of pain. After confirming that lead impedance was in the normal range, the external unit was detached, the needle was removed, and the lead was anchored at the skin. The lead was threaded into the connector block and electrical continuity and desired patient response was confirmed. The connector block was attached to the external stimulator unit. The site was covered with a sterile occlusive dressing. A final ultrasound image was taken to document final placement. The patient was observed for stability of vital signs and comfort.
== END 2022-08-14 16:10 | disposition home or self-care (01) ==
PROVIDERS: PCP Internal Medicine; Visit Provider Internal Medicine
PROC: (CPT 64555; principal; 2022-08-14 14:10)
DX: M25.562 Pain in left knee (principal); M17.0 Bilateral primary osteoarthritis of knee; G89.29 Other chronic pain; R26.2 Difficulty in walking, not elsewhere classified; Z91.81 History of falling; E11.42 Type 2 diabetes mellitus with diabetic polyneuropathy; E11.22 Type 2 diabetes mellitus with diabetic chronic kidney disease; I12.9 Hypertensive chronic kidney disease with stage 1 through stage 4 chronic kidney disease, or unspecified chronic kidney disease; N18.31 Chronic kidney disease, stage 3a; Z79.4 Long term (current) use of insulin; Z87.891 Personal history of nicotine dependence; Z91.018 Allergy to other foods; Z88.0 Allergy status to penicillin
CPT/HCPCS: 64555; C1778

== ENCOUNTER → 2022-08-20 08:55 | Outpatient (BNVA) | payer OTHER, SELFPAY | PROVIDERS: PCP Internal Medicine; Visit Provider Nurse Practitioner Family | DX: M25.562 Pain in left knee (principal); M17.10 Unilateral primary osteoarthritis, unspecified knee; Z98.890 Other specified postprocedural states | CPT/HCPCS: 99212 ==

== ENCOUNTER → 2022-08-29 09:21 | Outpatient (BNVA) | payer OTHER, SELFPAY | PROVIDERS: PCP Internal Medicine; Visit Provider Nurse Practitioner Family | DX: M17.0 Bilateral primary osteoarthritis of knee (principal); M25.561 Pain in right knee; M25.562 Pain in left knee; E11.42 Type 2 diabetes mellitus with diabetic polyneuropathy; N18.30 Chronic kidney disease, stage 3 unspecified; N17.9 Acute kidney failure, unspecified; Z96.82 Presence of neurostimulator | CPT/HCPCS: 99212 ==

== ENCOUNTER → 2022-10-11 08:54 | Outpatient (BNVA) | payer OTHER, SELFPAY | PROVIDERS: PCP Internal Medicine; Visit Provider Nurse Practitioner Family ==

== ENCOUNTER → 2022-10-31 09:55 | Outpatient (BNVA) | payer OTHER, MEDICAID, SELFPAY | PROVIDERS: PCP Internal Medicine; Visit Provider Orthopaedic Surgery | DX: M17.12 Unilateral primary osteoarthritis, left knee (principal); E11.40 Type 2 diabetes mellitus with diabetic neuropathy, unspecified | CPT/HCPCS: 99212 ==

== ENCOUNTER 2022-10-31 11:58 | Outpatient (REF) | payer OTHER, MEDICAID, SELFPAY ==
[2022-10-31 14:16] LABS: Estimated Average Glucose 237 mg/dL; Hemoglobin A1c % 9.9 %
== END 2022-10-31 11:59 | disposition home or self-care (01) ==
LOC: HO.10HDL 11:58
PROVIDERS: Visit Provider Orthopaedic Surgery
DX: E11.40 Type 2 diabetes mellitus with diabetic neuropathy, unspecified (principal); M17.12 Unilateral primary osteoarthritis, left knee
CPT/HCPCS: 36415; 83036

== ENCOUNTER 2022-12-10 09:55 | Outpatient (REF) | payer OTHER, MEDICAID, SELFPAY ==
[2022-12-10 10:11] LABS: MANUAL DIFF FLAG NO
[2022-12-10 10:44] LABS: Basophils Percent Auto 0.4 % (0-2); Eosinophils Absolute Auto 0.4 X10*3/uL (0.0-0.4); Eosinophils Percent Auto 3.6 % (0-4); Hematocrit 48.4 % (42.0-52.0); Hemoglobin 15.6 g/dl (14.0-18.0); Imm Gran Abs Auto 0.05 X10*3/uL (0.00-0.03); Imm Gran Pct Auto 0.5 % (0.0-0.4); Lymphocytes Absolute Auto 2.3 X10*3/uL (1.2-4.9); Lymphocytes Percent Auto 21.4 % (20-40); Mean Corpuscular HGB Conc 32.2 g/dl (31.0-36.0); Mean Corpuscular Volume 86.9 fL (80.0-98.0); Mean Platelet Volume 12.8 fL (9.4-12.4); Monocytes Absolute Auto 0.9 X10*3/uL (0.1-1.2); Monocytes Percent Auto 8.3 % (2-11); Neutrophils Absolute Auto 7.1 x10*3/uL (2.0-8.3); Neutrophils Percent Auto 65.8 % (45-73); Platelet Count 230 X10*3/uL (160-400); Red Blood Count 5.57 X10*6/uL (4.60-5.80); Red Cell Distribution Width 16.1 % (11.0-16.0); White Blood Count 10.8 X10*3/uL (4.8-10.8)
[2022-12-10 11:03] LABS: Anion Gap 12 (12-20); Blood Urea Nitrogen 29 mg/dL (9-16); Calcium 9.2 mg/dL (8.4-10.2); Carbon Dioxide 25 mmol/L (22-29); Chloride 110 mmol/L (96-108); Estimated Glomerular Filt Rate 46; Glucose Random 156 mg/dL (60-115); Potassium 4.4 mmol/L (3.3-5.1); Sodium 143 mmol/L (135-145)
[2022-12-10 11:30] LABS: Creatinine Urine 86.52 mg/dL; Protein/Creatinine Ratio, Ur 0.22 (<0.2); Total Protein Urine Random 19 mg/dL (<12)
== END 2022-12-10 09:56 | disposition home or self-care (01) ==
LOC: HO.LAB 09:55
PROVIDERS: PCP Internal Medicine; Visit Provider Internal Medicine Hypertension Specialist
DX: I12.9 Hypertensive chronic kidney disease with stage 1 through stage 4 chronic kidney disease, or unspecified chronic kidney disease (principal); N18.31 Chronic kidney disease, stage 3a; R82.90 Unspecified abnormal findings in urine
CPT/HCPCS: 36415; 80048; 84156; 85025; 87086; 87088; 87186

== ENCOUNTER 2023-01-08 09:01 | Outpatient (REF) | payer OTHER, MEDICAID, SELFPAY ==
[2023-01-08 11:23] LABS: Anion Gap 15 (12-20); Blood Urea Nitrogen 32 mg/dL (9-16); Calcium 9.7 mg/dL (8.4-10.2); Carbon Dioxide 22 mmol/L (22-29); Chloride 110 mmol/L (96-108); Estimated Glomerular Filt Rate 42; Glucose Random 207 mg/dL (60-115); Potassium 4.5 mmol/L (3.3-5.1); Sodium 142 mmol/L (135-145)
== END 2023-01-08 09:02 | disposition home or self-care (01) ==
LOC: HO.LAB 09:01
PROVIDERS: PCP Internal Medicine; Visit Provider Orthopaedic Surgery
DX: Z01.818 Encounter for other preprocedural examination (principal)
CPT/HCPCS: 36415; 80048; 83036; 85025

== ENCOUNTER 2023-01-22 09:58 | Outpatient (AMB) | payer OTHER, SELFPAY ==
[2023-01-22 10:19] VITALS: BP 134/80; BMI 34.7
--- NOTE | 2023-01-22 10:19 | MHC.PC.OV ---
Vital Signs 01/22/23 10:19 Height 5 ft 8 in Weight 228 lb BMI 34.7 BP 134/80 Blood Pressure Location Lt brachial Position Sitting Intake Visit Reasons: dm Intake Note: Patient here for a follow up dm Medical Radiation Tech Required: No Accompanied by: Self / Same As Patient Allergies Penicillins [PENICILLINS] Allergy (Intermediate, Verified 01/22/23 10:40) RASH pepper (genus Capsicum) Adverse Reaction (Intermediate, Verified 01/22/23 10:40) rashes Medication List - Last Reconciled 01/22/23 by Tram Álvarez MD alcohol swabs (Alcohol Prep Pads) 1 pad topical BID 90 days aspirin 81 mg PO DAILY atorvastatin 20 mg PO DAILY 30 days benazepril 40 mg PO DAILY blood pressure monitor As directed [chair lift As directed] cholecalciferol (vitamin D3) 25 mcg PO DAILY cyclobenzaprine 10 mg PO BEDTIME PRN 90 days dulaglutide (Trulicity) 4.5 mg (0.5 mL) subcut QWEEK empagliflozin (Jardiance) 25 mg PO DAILY 90 days fenofibrate nanocrystallized 145 mg PO DAILY 90 days flash glucose scanning reader (Space PencilStyle Tirso 14 Day Canalou) As directed flash glucose sensor (FreeStyle Tirso 2 Sensor kit) As directed furosemide 20 mg PO DAILY 90 days hydralazine 10 mg PO TID 90 days icosapent ethyl (Vascepa) 2 grams (2 x 1 gram) PO BID 30 days insulin aspart U-100 (Novolog FlexPen U-100 Insulin aspart) 14-22 with meals, 8 units with snacks subcut 4 times a day; insulin degludec (Tresiba FlexTouch U-200 insulin) 55 units (0.275 mL) subcut BEDTIME 90 days ketoconazole 2% 1 appl topical 3XW 60 days latanoprost 0.005% 1 drp ophthalmic (eye) BEDTIME lidocaine 5% 1 appl topical BEDTIME PRN 2 weeks lisinopril 20 mg PO DAILY 90 days lorazepam 1 mg PO BID metformin 500 mg PO BID oxycodone 5 mg PO TID PRN 30 days pen needle, diabetic five times a day sennosides (senna) 8.6 mg PO BEDTIME PRN 90 days sertraline 50 mg PO DAILY walker (Ultra-Light Rollator [facility] [place]) with seat walker As directed Tobacco use date assessed: 09/11/22 Fall risk assessment: 2 + Falls in past year Last assessed Fall Risk: 01/22/23 Dental Screening Dental Screen Date: 01/22/23 Did you have a dental visit in the last 12 months?: Yes Did you have a dental problem in the last 6 months where you did not have access to dental care?: No Was dental information given to patient?: Patient has dentist HPI HPI Comments History of Present Illness Details This is a 67-year-old male with diabetes mellitus type 2 complicated by diabetic nephropathy, hypertension, mixed hyperlipidemia and mild major depression as well as chronic kidney disease stage 3 that comes today for follow-up on his conditions. Blood pressure stable. A1c still elevated. GFR has worsened and this will be monitor. Lipid panel was ordered. Depression stable with sertraline. Walks with a walker due to left knee osteoarthritis and will have knee replacement next month. [facility]LY [facility] Medical History DAVINA (acute kidney injury) Arthritis CKD (chronic kidney disease), stage III Diabetic polyneuropathy associated with type 2 diabetes mellitus Hypertension Hypertriglyceridemia Knee osteoarthritis Left knee pain Low back pain Lumbar spondylosis Lumbar stenosis Mild recurrent major depression Mixed hyperlipidemia Multiple falls Obesity due to excess calories Proteinuria Right knee pain Right shoulder pain Syncope Type 2 diabetes mellitus with other diabetic kidney complication Surgical History H/O left knee surgery History of back surgery History of lumbar surgery Hx of cataract surgery Hx of eye surgery Family History Father Medical history unknown Mother No problems noted. Maternal Grandmother Medical history unknown Social History Household Members: None Housing: Apartment Do you presently have visiting nurse or other home services: No Alcohol intake: never Patient Tobacco Use Status: Former Tobacco user Tobacco use type: Cigarette e-Cigarette/Vaping Use: Never Used Second Hand Smoke Exposure: No service: Yes Current occupational status: disabled Cognitive needs: Yes (walker) Hearing needs: No Vision needs: Yes (reading glasses) Questionnaire Thrive Questionnaire Date Thrive assessed: 09/11/22 CHANDU-7 AMB Questionnaire CHANDU-7 Date CHANDU - 7 assessed: 09/11/22 Source: Developed by Drs. Jorge Hopson, Stacey Meza, Mario Garcia and colleagues, with an educational ahsan from [email or web address]. Review of Systems Const All systems reviewed & are unremarkable except as noted in HPI and below Eyes Reports no additional complaints, Denies change in vision and Denies other visual disturbances Card Denies chest pain at rest, Denies chest pain with activity, Denies edema, Denies irregular heart rhythm, Denies claudication, Denies dyspnea, Denies dyspnea on exertion, Denies orthopnea, Denies paroxysmal nocturnal dyspnea and Denies slow heart rate Resp Denies cough, Denies dyspnea and Denies dyspnea on exertion GI Denies abdominal pain, Denies change in bowel habits, Denies excessive flatus, Denies nausea and Denies vomiting Denies urinary hesitancy, Denies urinary incontinence and Denies urinary urgency Musc Denies abnormal gait, Denies atrophy, Denies deformity and Denies limited range of motion Skin/Breast Denies bleeding lesions, Denies changing lesions and Denies rash Neuro Denies abnormal gait and Denies lack of coordination Physical exam (Primary Care) Vital Signs: Last Vital Signs BP 134/80 01/22/23 10:19 BMI result Body Mass Index 34.7 Tobacco/Smoking Status: Tobacco use Status Tobacco use date assessed 09/11/22 01/22/23 10:26 Patient Tobacco Use Status Former Tobacco user 01/22/23 10:26 Tobacco use type Cigarette 01/22/23 10:26 e-Cigarette/Vaping Use Never Used 01/22/23 10:26 Thrive Assessment: Date of Thrive Assessment Date Thrive assessed 09/11/22 01/22/23 10:26 Const Orientation/consciousness: patient oriented x3 Limitations: ambulation with walker Eyes General: appearance normal, both eyes and all related structures Eyelids: Yes eyelids normal Conjunctivae: conjunctivae normal Neck Neck: Yes normal visual inspection and Yes supple Resp Effort & Inspection: normal respiratory effort Auscultation: clear to auscultation bilaterally Cardio Jugular venous distension: no JVD Rate: regular rate Rhythm: regular rhythm Heart sounds: S1 normal heart sound present and S2 normal heart sound present Neuro General: patient oriented x3 and no focal motor deficits Assessment and Plan Assessment & Plan (1) Mild recurrent major depression: Code(s): F33.0 - Major depressive disorder, recurrent, mild Plan: Continue SSRIs. (2) CKD (chronic kidney disease), stage III: Code(s): N18.30 - Chronic kidney disease, stage 3 unspecified Plan: Avoid NSAIDs. Keep blood pressure within goal. (3) Hypertension: Code(s): I10 - Essential (primary) hypertension Qualifiers: Hypertension type: essential hypertension Qualified Code(s): I10 - Essential (primary) hypertension Plan: Continue lisinopril, benazepril and hydralazine. Blood pressure goal is equal or less than 130/80. (4) Mixed hyperlipidemia: Code(s): E78.2 - Mixed hyperlipidemia Plan: Continue statins and fibrates. LDL goal is less than 70. (5) Type 2 diabetes mellitus with other diabetic kidney complication: Code(s): E11.29 - Type 2 diabetes mellitus with other diabetic kidney complication Plan: Continue metformin, Trulicity and insulin. A1c goal is equal or less than 7% Orders: Orders Vitamin B12 and Folate Today E53.8 - Deficiency of other specified B group vitamins Comprehensive [place]. Panel Fast Today N18.30 - Chronic kidney disease, stage 3 unspecified IRON PROFILE Today D64.9 - Anemia, unspecified Lipid Panel Today E78.5 - Hyperlipidemia, unspecified Vitamin D 25-OH Total Today E55.9 - Vitamin D deficiency, unspecified Microalbumin, Random (w Creat) Today E11.9 - Type 2 diabetes mellitus without complications ECG 12 lead EKG Today Z01.818 - Encounter for other preprocedural examination Complete Blood Count Auto Diff Today D64.9 - Anemia, unspecified Coding Level of Care Code Est Pt Level 4 (76015) Diagnoses Mild recurrent major depression F33.0 CKD (chronic kidney disease), stage III N18.30 Hypertension I10 Hypertension type: essential hypertension Mixed hyperlipidemia E78.2 Type 2 diabetes mellitus with other diabetic kidney complication E11.29 Time Spent (min) 24
== END 2023-01-22 10:50 | disposition home or self-care (01) ==
PROVIDERS: Visit Provider Internal Medicine
DX: I12.9 Hypertensive chronic kidney disease with stage 1 through stage 4 chronic kidney disease, or unspecified chronic kidney disease (principal); E11.22 Type 2 diabetes mellitus with diabetic chronic kidney disease; N18.30 Chronic kidney disease, stage 3 unspecified; F33.0 Major depressive disorder, recurrent, mild; E78.2 Mixed hyperlipidemia
CPT/HCPCS: 99214

== ENCOUNTER → 2023-01-22 11:08 | Outpatient (REF) | payer OTHER, SELFPAY ==
--- NOTE | 2023-01-22 11:14 | ECG_ITS ---
Test Reason : preop Blood Pressure : / mmHG Vent. Rate : 089 BPM Atrial Rate : 089 BPM P-R Int : 152 ms QRS Dur : 092 ms QT Int : 368 ms P-R-T Axes : 045 -19 060 degrees QTc Int : 447 ms Normal sinus rhythm Inferior infarct , age undetermined Abnormal ECG When compared with ECG of 07-NOV-2020 09:57, No significant change was found Referred By: Tram Álvarez Electronically Signed By:Matheus Smith
== END ==
LOC: HO.CARD 11:08
PROVIDERS: Visit Provider Orthopaedic Surgery
DX: Z01.818 Encounter for other preprocedural examination (principal)
CPT/HCPCS: 93005

== ENCOUNTER → 2023-01-22 11:14 | Outpatient (BNV) | payer OTHER, SELFPAY | PROVIDERS: Visit Provider Internal Medicine Cardiovascular Disease | DX: R94.31 Abnormal electrocardiogram [ECG] [EKG] (principal) | CPT/HCPCS: 93010 ==

== ENCOUNTER 2023-01-29 | Outpatient (REF) | payer OTHER, MEDICAID, SELFPAY | END 2023-01-29 00:01 | disposition home or self-care (01) | LOC: CF | PROVIDERS: Visit Provider Internal Medicine Cardiovascular Disease | DX: Z01.810 Encounter for preprocedural cardiovascular examination (principal); M17.10 Unilateral primary osteoarthritis, unspecified knee; Z79.899 Other long term (current) drug therapy | CPT/HCPCS: 99202 ==

== ENCOUNTER 2023-01-29 14:22 | Outpatient (AMB) | payer OTHER, SELFPAY ==
--- NOTE | 2023-01-29 14:20 | A.OFFVIS_ITS ---
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- abn ekg Intake Note: New patient having total knew replacement on 02/11 abnormal ekg feeling ok Admissions Counselor Required: No Allergies Penicillins [PENICILLINS] Allergy (Severe, Verified 01/29/23 12:08) RASH jay pepper Allergy (Intermediate, Verified 01/29/23 12:08) Rash pepper (genus Capsicum) Adverse Reaction (Intermediate, Verified 01/22/23 10:40) rashes Medication List - Last Reconciled 01/29/23 by Giuliano Grant MD alcohol swabs (Alcohol Prep Pads) 1 pad topical BID 90 days aspirin 81 mg PO DAILY atorvastatin 20 mg PO DAILY 30 days benazepril 40 mg PO DAILY blood pressure monitor As directed [chair lift As directed] cholecalciferol (vitamin D3) 25 mcg PO DAILY cyclobenzaprine 10 mg PO BEDTIME PRN 90 days dulaglutide (Trulicity) 4.5 mg (0.5 mL) subcut QWEEK empagliflozin (Jardiance) 25 mg PO DAILY 90 days fenofibrate nanocrystallized 145 mg PO DAILY 90 days flash glucose scanning reader (AlgorithmicsStyle Tirso 14 Day Schofield) As directed flash glucose sensor (FreeStyle Tirso 2 Sensor kit) As directed furosemide 20 mg PO DAILY 90 days hydralazine 10 mg PO TID 90 days icosapent ethyl (Vascepa) 2 grams (2 x 1 gram) PO BID 30 days insulin aspart U-100 (Novolog FlexPen U-100 Insulin aspart) 14-22 with meals, 8 units with snacks subcut 4 times a day; insulin degludec (Tresiba FlexTouch U-200 insulin) 55 units (0.275 mL) subcut BEDTIME 90 days ketoconazole 2% 1 appl topical 3XW 60 days latanoprost 0.005% 1 drp ophthalmic (eye) BEDTIME lidocaine 5% 1 appl topical BEDTIME PRN 2 weeks lisinopril 20 mg PO DAILY 90 days lorazepam 1 mg PO BID metformin 500 mg PO BID oxycodone 5 mg PO TID PRN 30 days pen needle, diabetic five times a day sennosides (senna) 8.6 mg PO BEDTIME PRN 90 days sertraline 50 mg PO DAILY walker (Ultra-Light Rollator misc) with seat walker As directed HPI HPI Comments History of Present Illness Details thank you for referring Carlos for preoperative cardiovascular risk stratification prior to knee surgery. He has very limited because of his knee osteoarthritis is scheduled to undergo surgery in near future. EKG performed as a preoperative workup which would inferior Q-waves. He does not recall having prior her cardiac issues. Denies any prior history of myocardial infarction. Does have longstanding historyOf hypertension which is as per him well controlled as well as diabetes which as per him also is well controlled. However as mentioned he has very limited exercise activity due to his osteoarthritis which limits him. Denies any exertional shortness of breath or chest discomfort with level of activity performed. However his exercise capacity is less than 4 Mets. He denies any orthopnea, PND, leg edema. Denies any prolonged palpitations, irregular heartbeat, lightheadedness, syncope at current time. [facility] Medical History DAVINA (acute kidney injury) Arthritis CKD (chronic kidney disease), stage III Diabetic polyneuropathy associated with type 2 diabetes mellitus Hypertension Hypertriglyceridemia Knee osteoarthritis Left knee pain Low back pain Lumbar spondylosis Lumbar stenosis Mild recurrent major depression Mixed hyperlipidemia Multiple falls Obesity due to excess calories Proteinuria Right knee pain Right shoulder pain Syncope Type 2 diabetes mellitus with other diabetic kidney complication Surgical History History of back surgery History of lumbar surgery Hx of cataract surgery Hx of eye surgery S/P evacuation of hematoma Family History Father Medical history unknown Mother No problems noted. 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) Alcohol intake: never Patient Tobacco Use Status: Former Tobacco user Quit Date: 2021 Tobacco use type: Cigarette Years Smoked: 25 e-Cigarette/Vaping Use: Never Used Second Hand Smoke Exposure: No service: Yes Current occupational status: disabled Cognitive needs: Yes (walker) Hearing needs: No Vision needs: Yes (reading glasses) Review of Systems Const Denies chills, Denies daytime sleepiness, Denies fatigue, Denies fever(s), Denies frequent falls, Denies poor appetite, Denies snoring, Denies stops breathing during sleep, Denies weakness, Denies weight gain and Denies weight loss Eyes Denies loss of vision ENT Denies dizziness and Denies hearing loss Card Denies chest pain, Denies claudication, Denies leg edema, Denies lightheadedness, Denies palpitations, Denies dyspnea, Denies dyspnea on exertion and Denies orthopnea Resp Denies cough, Denies excessive phlegm production, Denies dyspnea, Denies dyspnea on exertion, Denies snoring and Denies wheezing GI Denies abdominal pain, Denies hematochezia, Denies change in bowel habits, Denies nausea and Denies vomiting Denies dysuria and Denies urinary frequency Musc Denies arthralgias, Denies muscle weakness, Denies numbness and Denies other (frequent falls) Skin/Breast Denies nail changes and Denies rash Neuro Denies Abnormal speech present, Denies dizziness, Denies frequent falls, Denies loss of vision, Denies memory loss, Denies numbness and Denies weakness Psych Denies depression and Denies memory loss Endo Denies fatigue and Denies palpitations Andrés/Lymph Reports easy bruising and Reports other (anemia) Aller/Immun Denies wheezing Physical Exam Vital Signs: Last Vital Signs Pulse 93 01/29/23 14:21 BP 120/64 01/29/23 14:21 BMI result Body Mass Index 35.2 Const General: cooperative, comfortable, no acute distress, alert and awake Nutritional Appearance: obese Orientation/consciousness: patient oriented x3 Limitations: ambulation with walker HEENT Head: Yes normocephalic and Yes atraumatic Neck Neck: Yes trachea midline, Yes supple and Yes no JVD Resp Effort & Inspection: normal respiratory effort Auscultation: clear to auscultation bilaterally Cardio Jugular venous distension: no JVD Palpation: normal PMI Rate: regular rate Rhythm: regular rhythm Heart sounds: S1 normal heart sound present, S2 normal heart sound present, no click, no gallops, no murmurs and no rubs GI Inspection: Yes obesity Auscultation: normal bowel sounds Skin General skin exam: no rashes or lesions noted Neuro General: patient oriented x3 and no focal motor deficits Speech: No Abnormal speech present Extrem General: Yes no clubbing, cyanosis or edema Psych Appearance: grossly normal Assessment & Plan Assessment & Plan (1) Preoperative cardiovascular examination: Code(s): Z01.810 - Encounter for preprocedural cardiovascular examination Plan: Preoperative cardiovascular risk stratification is elderly gentleman with multiple cardiovascular risk factors with limited exercise capacity to undergo intermediate risk surgery with knee replacement surgery. Requires further preoperative risk stratification with vasodilating myocardial perfusion imaging as well as an echocardiogram. These tests will be performed in near future. He has EKG which shows inferior Q-waves is most likely due to his body habitus with abdominal obesity pushing the diaphragm up and change in his cardiac position within the mediastinal cavity. This was discussed with him. He understands agrees. Currently his blood pressure is well optimized continue current medications. Diabetes under your care. Further recommendations based on the finding of the test. If his tests are within normal limits, is optimized to undergo this surgery with low risk for perioperative cardiovascular morbidity mortality. Will follow up in the clinic if need be. Thank you for allowing me to partake in his care Orders: Orders CA lexiscan stress w celia Today Z01.810 - Encounter for preprocedural cardiovascular examination CA echo transthoracic complete Today Z01.810 - Encounter for preprocedural cardiovascular examination Coding Level of Care Code New Pt Level 4 (14875) Diagnoses Preoperative cardiovascular examination Z01.810
[2023-01-29 14:21] VITALS: BP 120/64; PULSE 93; BMI 35.2
== END 2023-01-29 15:19 | disposition home or self-care (01) ==
PROVIDERS: PCP Internal Medicine; Visit Provider Internal Medicine Cardiovascular Disease
DX: Z01.810 Encounter for preprocedural cardiovascular examination (principal)
CPT/HCPCS: 99204

== ENCOUNTER → 2023-01-29 14:22 | Outpatient (BNVA) | payer OTHER, SELFPAY | PROVIDERS: PCP Internal Medicine; Visit Provider Internal Medicine Cardiovascular Disease ==

== ENCOUNTER → 2023-01-30 07:54 | Outpatient (REF) | payer OTHER, SELFPAY ==
--- NOTE | ~2023-01-30 | NM_ITS ---
Myocardial perfusion study Indication: Preoperative cardiovascular risk stratification Technique: The patient was brought in for a Lexiscan perfusion study on 01/30/2023. Patient performed low-level exercise and was injected 0.4 mg of Lexiscan intravenously. Within a minute of injection, 35 mCi of sestamibi was given intravenously. Images were obtained using the SPECT gamma camera interlaced with the gating device. Images were obtained in supine position. Resting perfusion study was performed on 01/31/2023. Patient was administered 35 mCi of sestamibi intravenously at rest. Images were then obtained in supine position. Images obtained with and without CT attenuation. Total DLP 123 mGy-cm. Images were processed with the software and compared side to side in short axis, horizontal long axis and vertical long axis views. Findings: The stress perfusion study showed non attenuated images show mildly reduced uptake in the basal inferior and inferolateral wall of the LV myocardium. Remainder of the LV myocardium is normally perfused. Attenuation corrected images show minimal thinning of the apex of the LV myocardium.. The gated study shows normal LV systolic function with calculated LVEF of 66%. LV cavity is normal in size. The gated study shows normal systolic wall thickening and contraction of segments. Resting study shows nontender images show mildly reduced uptake in the inferolateral and inferior, basal portion. Remainder of the LV myocardium is normally perfused. Attenuation corrected images show mildly reduced uptake in the apex of the LV myocardium. Gating at rest reveals normal systolic wall motion with ejection fraction at 64%. The findings are consistent with no clear reversible defect suggestive of ischemia. Likely normal myocardial perfusion. NM/NM celia perf SPECT rest & str Impression: 1. Myocardial perfusion imaging study shows likely normal myocardial perfusion 2. Gated LVEF is 66% 3. Transient ischemic dilatation not present EKG is Nondiagnostic for ischemia
--- NOTE | 2023-01-30 08:16 | CA_ITS ---
Transthoracic Echocardiogram Patient (Last, First, Middle): Carlos Cabrera A Gender: Male Date of : 1955 Age: 67 Procedure Date: 01/30/2023 Procedure Type: Transthoracic Echocardiogram Location: OP Height: 172.72 cm Weight: 104.33 kg BSA: 2.17 m2 Heart Rate: bpm BP: 135 / 80 mmHg Beamer Helper: GLORIA Referring MD: Giuliano Grant MD Rn Or Lpn: Giuliano Grant MD Symptoms: Z01.810 - Encounter for preprocedural cardiovascular examination Study Quality: Fair ECG Rhythm: Sinus Conclusions: - 1. Normal LV ejection fraction of 60 65% with grade 1 diastolic dysfunction 2. Limited visualization cardiac valves with normal cardiac valvular Doppler 3. Upper limits of normal ascending aortic size Findings Left Ventricle Normal left ventricular size, thickness, and systolic function. The visually estimated ejection fraction is between 60-65%. Spectral Doppler is indicative of an impaired relaxation filling pattern. E/E prime ratio is <8, consistent with normal filling pressures. Evidence suggests grade I (mild) diastolic dysfunction. Peak GLS is -17.4%, borderline low. Right Ventricle The right ventricle was not well visualized. There is normal right ventricular systolic function. Atria The left atrium is normal in size. Interatrial shunt cannot be excluded. The right atrium is normal in size. Aortic Valve The aortic valve structure and function is likely normal. There is no aortic valve stenosis. There is no aortic valve regurgitation. Mitral Valve There is mild anterior and posterior mitral leaflet thickening. There is trace mitral valve regurgitation. There is no mitral valve stenosis. Pulmonic Valve The pulmonic valve was not well visualized. Tricuspid Valve Likely normal tricuspid valve structure and function. Tricuspid regurgitation envelope is inadequate for calculation of right ventricular systolic pressure. Great Vessels The pulmonary artery was not well visualized. Venous The inferior vena cava was not well visualized. Pericardium/Pleural There is no evidence of pericardial effusion. Measurements 2D Linear Measurements IVSd: 1.10 0.6-0.9/0.6-1.0 cm LVIDd: 4.00 3.9-5.3/4.2-5.9 cm LVIDd Index: 1.84 2.4-3.2/2.2-3.1 cm/m2 LVIDs: 3.00 2.0-3.6 cm LVPWd: 1.10 0.7-1.1 cm LA Diam: 3.20 2.7-3.8/3.0-4.0 cm LAIDs Index: 1.47 1.5-2.3 cm/m2 LV Mass: 181.30 67-162/88-224 g LV Mass Index: 83.55 43-95/49-115 g/m2 LVOT Diam: 2.20 3.0+(-)1.3 cm 2D Systolic Function EF 4C: 60.50 >55% EF 2C: 54.50 >55% EF BiP: 59.30 >55% Mitral Valve MV Pk E: 0.62 MV PK A: 0.91 MV Decel Time: 233.00 E/A: 0.70 E'Lateral: 8.92 E'Medial: 6.42 E/E' Med: 9.70 E/E' Lat: 7.00 PHT: 68.00 MVA PHT: 3.24 Decel Cocke: 2.67 Aortic Valve AoV Pk Jose: 1.07 AoV Mn Jose: 0.77 AoV VTI: 0.21 AoV Pk Grad: 5.00 Aov Mn Grad: 3.00 TREMAYNE Cont.VTI: 3.16 LVOT LVOT Pk Jose: 0.86 LVOT Mn Jose: 0.60 LVOT VTI: 0.17 LVOT Pk Grad: 3.00 LVOT Mn Grad: 2.00 LVOT Diam: 2.20 LVOT Area: 3.80 Diastolic Function MV Pk E: 0.62 MV Pk A: 0.91 E/A: 0.70 E'Medial: 6.42 E/E' Med: 9.70 E' Laterial: 8.92 E/E' Lat: 7.00 Right Ventricle TAPSE (mm): 19.10 TVS' Jose: 12.40 Great Vessels Aorta Sinus of Valsalva: 3.50 2.0-3.[address] Ridge: 2.90 1.7-3.4 cm Ao Asc: 3.50 2.1-3.4 cm Ao Arch: 2.80 Updated in Other Vendor System with Status of Final Giuliano Grant MD electronically signed on 01/30/2023 4:21:38 PM with status of Final
--- NOTE | 2023-01-30 08:16 | CA_ITS ---
Acquisition Time: 2023-01-30 09:06:23 Total Exercise Time: 00:02:00 Test Indications: PREOP Medications: Protocol: LEXISCAN Max HR: 101 BPM 66% of Pred: 153 BPM Max BP: 140/058 mmHG Max Work Load: 1.0 METS Pharmacological stress test with Lexiscan injection while sitting and kicking his leg, without anginal symptoms, with isolated PVCs, with normotensivce response to injection, with non-diagnositic EKGs, Nuclear images pending. Test reviewed with Dr. Grant Referred By: Giuliano Grant Overread By: Viridiana Ramires
== END ==
LOC: HO.CARD 07:54
PROVIDERS: PCP Internal Medicine; Visit Provider Internal Medicine Cardiovascular Disease
DX: Z01.810 Encounter for preprocedural cardiovascular examination (principal)
CPT/HCPCS: 78452; 93017; 93306; 93356; A9500; J0280; J2785

== ENCOUNTER → 2023-01-30 08:16 | Outpatient (BNV) | payer OTHER, SELFPAY | PROVIDERS: PCP Internal Medicine; Visit Provider Nurse Practitioner | DX: I51.9 Heart disease, unspecified (principal); Z01.818 Encounter for other preprocedural examination | CPT/HCPCS: 78452; 93016; 93018; 93306 ==

== ENCOUNTER 2023-01-31 | Outpatient (REF) | payer OTHER, MEDICAID, SELFPAY ==
[2023-01-31 15:12] LABS: Glucose Random 258 mg/dL (60-115)
[2023-01-31 15:17] LABS: Estimated Average Glucose 180 mg/dL; Hemoglobin A1c % 7.9 %
== END 2023-01-31 00:01 | disposition home or self-care (01) ==
LOC: HO.LAB
PROVIDERS: Visit Provider Physician Assistant Surgical
DX: E66.01 Morbid (severe) obesity due to excess calories (principal); E11.29 Type 2 diabetes mellitus with other diabetic kidney complication; I10 Essential (primary) hypertension; Z68.34 Body mass index [BMI] 34.0-34.9, adult
CPT/HCPCS: 36415; 82947; 83036; 99453

== ENCOUNTER 2023-01-31 12:58 | Outpatient (AMB) | payer OTHER, MEDICAID, SELFPAY ==
[2023-01-31 13:02] VITALS: BP 142/80; PULSE 92; O2SAT 98; BMI 35.4
--- NOTE | 2023-01-31 13:02 | MHC.PC.OV ---
Vital Signs 01/31/23 13:02 Height 5 ft 8 in Weight 233 lb 0.2 oz BMI 35.4 BP 142/80 H Blood Pressure Location Lt brachial Position Sitting Pulse 92 Pulse Source Pulse Oximeter Temp Source Skin Pulse Oximetry (%) 98 Oxygen Delivery Method Room Air Intake Visit Reasons: L total knee orthoplasty-02/12 Intake Note: Patient is here for a Pre-op for L total knee orthoplasty scheduled with Dr. 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: No Allergies Penicillins [PENICILLINS] Allergy (Severe, Verified 01/31/23 13:02) RASH jay pepper Allergy (Intermediate, Verified 01/31/23 13:02) Rash pepper (genus Capsicum) Adverse Reaction (Intermediate, Verified 01/31/23 13:02) rashes Tobacco use date assessed: 01/31/23 Fall risk assessment: No Falls in past year Last assessed Fall Risk: 01/31/23 Dental Screening Dental Screen Date: 01/31/23 HPI HPI Comments History of Present Illness Details 67-year-old male past medical history significant for type 2 diabetes mellitus, depression, hyperlipidemia, CKD, hypertension and osteoarthritis of left knee. Patient of Dr. Jacinto presents today for pre-op examination for left total knee arthroplasty.Patient has surgery scheduled for 02/11/[address] Apple under gerneral anethesia. Patient denies previous complications to general anesthesia in the past. Patient had abnormal EKG which showed inferior Q-waves. Patient was seen by Cardiology on 01/29/2023 recommending that patient requires further preoperative risk stratification with vasodilating myocardial perfusion imaging as well as echocardiogram. Patient report had these tests completed, nuclear imaging pending. Patient denies chest pain, palpitations, shortness of breath and syncope. Laboratory Tests 01/08/23 01/08/23 01/08/23 10:11 10:11 10:11 WBC 10.5 RBC 5.36 Hgb 15.0 Hct 46.1 MCV 86.0 MCH 28.0 MCHC 32.5 RDW 16.6 H Plt Count 215 MPV 13.2 H Immature Gran % (A uto) 0.4 Neut % (Auto) 64.6 Lymph % (Auto) 21.1 [place] % (Auto) 9.0 Eos % (Auto) 4.4 H Baso % (Auto) 0.5 Lymph # (Auto) 2.2 [place] # (Auto) 0.9 Eos # (Auto) 0.5 H Baso # (Auto) 0.1 Abs Immat Gran (au to) 0.04 H Absolute Neuts (au to) 6.8 Absolute Nucleated RBC 0.000 Nucleated RBC % (a uto) 0.0 Sodium 142 Potassium 4.5 Chloride 110 H Carbon Dioxide 22 Anion Gap 15 BUN 32 H Creatinine 1.64 H Estimated GFR 42 Random Glucose 207 H Estimat Average Gl ucose 180 Hemoglobin A1c % 7.9 Calcium 9.7 PFSH Medical History DAVINA (acute kidney injury) Arthritis CKD (chronic kidney disease), stage III Diabetic polyneuropathy associated with type 2 diabetes mellitus Hypertension Hypertriglyceridemia Knee osteoarthritis Left knee pain Low back pain Lumbar spondylosis Lumbar stenosis Mild recurrent major depression Mixed hyperlipidemia Multiple falls Obesity due to excess calories Proteinuria Right knee pain Right shoulder pain Syncope Type 2 diabetes mellitus with other diabetic kidney complication Surgical History History of back surgery History of lumbar surgery Hx of cataract surgery Hx of eye surgery S/P evacuation of hematoma Family History Father Medical history unknown Mother No problems noted. 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 How often do you have a drink containing alcohol?: Never Total Score: 0 CHANDU-7 AMB Questionnaire CHANDU-7 Date CHANDU - 7 assessed: 09/11/22 Source: Developed by Drs. Jorge Hopson, Stacey Meza, Mario Garcia and colleagues, with an educational ahsan from [employer] Review of Systems Const Denies chills, Denies fatigue, Denies fever(s) and Denies poor appetite Eyes Denies no additional complaints ENT Reports Normal hearing present Card Denies chest pain, Denies syncope, Denies rapid heart rate and Denies dyspnea Resp Denies cough and Denies dyspnea GI Denies change in stool character, Denies constipation, Denies diarrhea, Denies nausea and Denies vomiting Denies dysuria, Denies urinary frequency and Denies urinary urgency Neuro Reports Normal hearing present, Denies confusion and Denies syncope Psych Denies confusion Endo Denies fatigue Physical exam (Primary Care) Vital Signs: Last Vital Signs Pulse 92 01/31/23 13:02 BP 142/80 H 01/31/23 13:02 Pulse Ox 98 01/31/23 13:02 Oxygen Delivery Method Room Air 01/31/23 13:02 BMI result Body Mass Index 35.4 Tobacco/Smoking Status: Tobacco use Status Tobacco use date assessed 01/31/23 01/31/23 13:04 Patient Tobacco Use Status Former Tobacco user 01/31/23 13:04 Tobacco use type Cigarette 01/31/23 13:04 e-Cigarette/Vaping Use Never Used 01/31/23 13:04 Thrive Assessment: Date of Thrive Assessment Date Thrive assessed 09/11/22 01/31/23 13:04 Const General: No confusion Orientation/consciousness: No confusion HENMT Head: Yes normocephalic and Yes atraumatic Eyes Conjunctivae: conjunctivae normal Chest Chest palpation & inspection: normal inspection of the chest Resp Effort & Inspection: normal respiratory effort Auscultation: clear to auscultation bilaterally, no crackles, no rhonchi and no wheezes Cardio Rate: regular rate Rhythm: regular rhythm Heart sounds: S1 normal heart sound present and S2 normal heart sound present GI Inspection: Yes normal to inspection Neuro General: No confusion Cranial nerves: Yes Normal hearing present Extrem General: No edema Assessment and Plan Assessment & Plan (1) Pre-op evaluation: Code(s): Z01.818 - Encounter for other preprocedural examination Plan: CMP, PT/INR and TSH ordered. Patient advised hold metformin 24hours prior to procedure, Hold insulin while NPO. Hold asa,NSAIDs other blood thinning medication 1 week prior to procedure. Take blood pressure medications with a small sip of water prior to procedure. Once labs reviewed and patient cleared by cardiology an addendum will be made to this note if patient able to proceed with scheduled left total knee replacement. (2) CKD (chronic kidney disease), stage III: Code(s): N18.30 - Chronic kidney disease, stage 3 unspecified (3) Type 2 diabetes mellitus with other diabetic kidney complication: Code(s): E11.29 - Type 2 diabetes mellitus with other diabetic kidney complication Plan: Continue on current medications. HGB A1c 7.9% (4) Hypertension: Code(s): I10 - Essential (primary) hypertension Qualifiers: Hypertension type: essential hypertension Qualified Code(s): I10 - Essential (primary) hypertension Plan: Continue on benazepril 40 mg, hydralazine 10 mg t.i.d. and lisinopril 20 mg. Blood pressure goal less than 140/90 Follow low-salt diet and exercise. Orders: Orders TSH reflex Free T4 Today Z01.818 - Encounter for other preprocedural examination Prothrombin Time INR Today Z01.818 - Encounter for other preprocedural examination Comprehensive Met. Panel Today N18.30 - Chronic kidney disease, stage 3 unspecified Coding Level of Care Code Est Pt Level 4 (01104) Diagnoses Pre-op evaluation Z01.818 CKD (chronic kidney disease), stage III N18.30 Type 2 diabetes mellitus with other diabetic kidney complication E11.29 Hypertension I10 Hypertension type: essential hypertension
== END 2023-01-31 14:29 | disposition home or self-care (01) ==
PROVIDERS: PCP Internal Medicine; Visit Provider Nurse Practitioner Family
DX: I12.9 Hypertensive chronic kidney disease with stage 1 through stage 4 chronic kidney disease, or unspecified chronic kidney disease (principal); E11.29 Type 2 diabetes mellitus with other diabetic kidney complication; N18.30 Chronic kidney disease, stage 3 unspecified; Z01.818 Encounter for other preprocedural examination
CPT/HCPCS: 99214

== ENCOUNTER 2023-01-31 13:50 | Outpatient (AMB) | payer OTHER, MEDICAID, SELFPAY ==
--- NOTE | 2023-01-31 14:25 | HO.OFFWMMET ---
Intake VS Expanded 01/31/23 15:10 Height 5 ft 8 in Weight 229 lb 9.6 oz BMI 34.9 BP 142/70 H Blood Pressure Location Rt brachial Blood Pressure Position Sitting Pulse 95 Pulse Source Pulse Oximeter Temp 97.6 F Temperature Source Temporal Artery Scan Pulse Oximetry 96 Oxygen Delivery Method Room Air Body Fat 75.2 Body Fat Percentage 32.8 Free Fat Mass 154.4 Muscle Mass 146.6 Visceral Mass 20.0 Water Mass 109.6 BMR 2,076 Intake Visit Reasons: (OV) Metabolic HC Allergies Penicillins [PENICILLINS] Allergy (Severe, Verified 01/31/23 13:02) RASH jay pepper Allergy (Intermediate, Verified 01/31/23 13:02) Rash pepper (genus Capsicum) Adverse Reaction (Intermediate, Verified 01/31/23 13:02) rashes HPI HPI Comments History of Present Illness Details This is a 67 year old male who presents for metabolic clinic. They are being followed for obesity and related conditions, including diabetes and hypertension. Initial weight upon presentation on 01/31/23 was 229.6 pounds with a BMI of 34.9. Patient reports he si doing well and is interested in improving his overall health and hopes to reduce reliance on medications for his DM and HTN. [facility] Medical History DAVINA (acute kidney injury) Arthritis CKD (chronic kidney disease), stage III Diabetic polyneuropathy associated with type 2 diabetes mellitus Hypertension Hypertriglyceridemia Knee osteoarthritis Left knee pain Low back pain Lumbar spondylosis Lumbar stenosis Mild recurrent major depression Mixed hyperlipidemia Multiple falls Obesity due to excess calories Proteinuria Right knee pain Right shoulder pain Syncope Type 2 diabetes mellitus with other diabetic kidney complication Surgical History History of back surgery History of lumbar surgery Hx of cataract surgery Hx of eye surgery S/P evacuation of hematoma Family History Father Medical history unknown Mother No problems noted. Maternal Grandmother Medical history unknown Social History Household Members: None Housing: Apartment Are you a primary child care team lead to a significant other at home: No Do you presently have visiting nurse or other home services: Yes ([employer] RECE[employer]ED 3 hours/day, 2 hours/night) Alcohol intake: never Patient Tobacco Use Status: Former Tobacco user Quit Date: 2021 Tobacco use type: Cigarette Years Smoked: 25 e-Cigarette/Vaping Use: Never Used Second Hand Smoke Exposure: No service: Yes Current occupational status: disabled Cognitive needs: Yes (walker) Hearing needs: No Vision needs: Yes (reading glasses) Physical Exam Vital Signs: Last Vital Signs Temp 97.6 F 01/31/23 15:10 Pulse 95 01/31/23 15:10 BP 142/70 H 01/31/23 15:10 Pulse Ox 96 01/31/23 15:10 Oxygen Delivery Method Room Air 01/31/23 15:10 BMI result Body Mass Index 34.9 Results Reviewed Results Reviewed: HgbA1c 7.9 Assessment & Plan Assessment & Plan (1) Obesity due to excess calories: Code(s): E66.09 - Other obesity due to excess calories Qualifiers: Obesity classification: adult class 2 (BMI 35 - 39.9) Serious obesity comorbidity presence: with serious comorbidity Body mass index: BMI 37.0-37.9 Qualified Code(s): E66.01 - Morbid (severe) obesity due to excess calories; Z68.37 - Body mass index [BMI] 37.0-37.9, adult Plan: Seen in clinic today Given glucometer, scale, BP cuff set up apps for monitoring and connected to [facility] site. Next week will go through right bmi uri and determine meal plan and exercise plan Orders: Orders Glucose Random Today E11.29 - Type 2 diabetes mellitus with other diabetic kidney complication Hemoglobin A1c Today E11.29 - Type 2 diabetes mellitus with other diabetic kidney complication Coding Level of Care Code 59481 [facility] Intital setup, [facility] Diagnoses Obesity due to excess calories E66.01; Z68.37 Obesity classification: adult class 2 (BMI 35 - 39.9) Serious obesity comorbidity presence: with serious comorbidity Body mass index: BMI 37.0-37.9
[2023-01-31 15:10] VITALS: BP 142/70; PULSE 95; TEMP 36.4; O2SAT 96; BMI 34.9
== END 2023-01-31 17:32 | disposition home or self-care (01) ==
PROVIDERS: PCP Internal Medicine; Visit Provider Physician Assistant Surgical
DX: E66.01 Morbid (severe) obesity due to excess calories (principal); Z68.37 Body mass index [BMI] 37.0-37.9, adult

== ENCOUNTER 2023-02-06 10:58 | Outpatient (AMB) | payer OTHER, MEDICAID, SELFPAY ==
--- NOTE | 2023-02-06 11:07 | MHC.OFFVIS ---
Intake Vital Signs 02/06/23 11:11 Height 5 ft 8 in Weight 229 lb BMI 34.8 Intake Visit Reasons: Preop LT TKA 02/11/23 NE Intake Note: Stephane 67 year old male who presents today for a preoperative left TKA on 02/11/23 NE. Pain management agreement reviewed and signed. Allergies Penicillins [PENICILLINS] Allergy (Severe, Verified 02/06/23 11:11) RASH jay pepper Allergy (Intermediate, Verified 02/06/23 11:11) Rash pepper (genus Capsicum) Adverse Reaction (Intermediate, Verified 02/06/23 11:11) rashes Medication List - Last Reconciled 02/06/23 by Samy Ryan PA-C alcohol swabs (Alcohol Prep Pads) 1 pad topical BID 90 days aspirin 81 mg PO DAILY atorvastatin 20 mg PO DAILY 30 days benazepril 40 mg PO DAILY blood pressure monitor As directed [chair lift As directed] cholecalciferol (vitamin D3) 25 mcg PO DAILY cyclobenzaprine 10 mg PO BEDTIME PRN 90 days dulaglutide (Trulicity) 4.5 mg (0.5 mL) subcut QWEEK empagliflozin (Jardiance) 25 mg PO DAILY 90 days fenofibrate nanocrystallized 145 mg PO DAILY 90 days flash glucose scanning reader ([employer] 14 Day [place]) As directed flash glucose sensor ([employer]so 2 Sensor kit) As directed furosemide 20 mg PO DAILY 90 days hydralazine 10 mg PO TID 90 days icosapent ethyl (Vascepa) 2 grams (2 x 1 gram) PO BID 30 days insulin degludec (Tresiba FlexTouch U-200 insulin) 55 units (0.275 mL) subcut BEDTIME 90 days ketoconazole 2% 1 appl topical 3XW 60 days latanoprost 0.005% 1 drp ophthalmic (eye) BEDTIME lidocaine 5% 1 appl topical BEDTIME PRN 2 weeks lisinopril 20 mg PO DAILY 90 days lorazepam 1 mg PO BID metformin 500 mg PO BID oxycodone 5 mg PO TID PRN 30 days pen needle, diabetic five times a day sennosides (senna) 8.6 mg PO BEDTIME PRN 90 days sertraline 50 mg PO DAILY walker (Ultra-Light Rollator [facility]) with seat walker As directed HPI HPI Comments History of Present Illness Details Mr Cabrera presents to the office today for preop visit. He is scheduled for left total knee arthroplasty with Dr. Apple. He continues to have ongoing pain and difficulty with ambulation in the left knee, which is affecting his quality of life; therefore, he has elected to move forward with surgery. [facility] Medical History DAVINA (acute kidney injury) Arthritis CKD (chronic kidney disease), stage III Diabetic polyneuropathy associated with type 2 diabetes mellitus Hypertension Hypertriglyceridemia Knee osteoarthritis Left knee pain Low back pain Lumbar spondylosis Lumbar stenosis Mild recurrent major depression Mixed hyperlipidemia Multiple falls Obesity due to excess calories Proteinuria Right knee pain Right shoulder pain Syncope Type 2 diabetes mellitus with other diabetic kidney complication Surgical History History of back surgery History of lumbar surgery Hx of cataract surgery Hx of eye surgery S/P evacuation of hematoma Family History Father Medical history unknown Mother No problems noted. 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) Alcohol intake: never Patient Tobacco Use Status: Former Tobacco user Quit Date: 2021 Tobacco use type: Cigarette Years Smoked: 25 e-Cigarette/Vaping Use: Never Used Second Hand Smoke Exposure: No service: Yes Current occupational status: disabled Cognitive needs: Yes (walker) Hearing needs: No Vision needs: Yes (reading glasses) Review of Systems Const All systems reviewed & are unremarkable except as noted in HPI and below Physical Exam Vital Signs: BMI result Body Mass Index 34.8 Const General: cooperative and no acute distress Orientation/consciousness: patient oriented x3 HEENT Head: Yes normal to inspection, Yes normocephalic and Yes atraumatic Eyes General: appearance normal, both eyes and all related structures Neck Neck: Yes normal visual inspection and Yes no lymphadenopathy Resp Effort & Inspection: normal respiratory effort and able to speak in complete sentences Cardio Rate: regular rate Peripheral pulses: Peripheral pulses 2+ throughout GI Inspection: Yes normal to inspection Palpation (GI): Soft to palpation Skin General skin exam: no rashes or lesions noted Neuro General: patient oriented x3 Extrem Other: Left knee: Skin intact. No open wound or abrasion. ROM is 5-95 degrees. He does have a varus deformity. NVI. Psych Appearance: grossly normal Mental Status: mental status grossly normal Results Reviewed Results Reviewed: xrays of the left knee obtained on 04/2021 LEFT KNEE: Tricompartmental degenerative changes present with narrowing of both compartments, medial greater than lateral. Small posterior osteophytes are noted from the patella. No significant joint effusion is present. Assessment & Plan Assessment & Plan (1) Osteoarthritis of left knee: Code(s): M17.12 - Unilateral primary osteoarthritis, left knee Plan: I discussed in detail the procedure and what to expect pre and post operatively. We discussed the risks, benefits and alternatives to the surgery as well as the rehabilitation course. The risks; which include, but are not limited to infection, bleeding, nerve injury, ongoing pain, swelling, and stiffness, perioperative risk of injury to bones and soft tissues, and blood clots. I?ve answered all questions and with their understanding they have consented to move forward with Left total knee arthroplasty with Dr. Apple Patient Instructions: Scribed for Samy Ryan PA-C, by [facility] medical billing service, on 02/06/2023 at 11:30 AM Samy VERGARA PA-C, have personally reviewed and agree with the information entered by the scribe. Coding Level of Care Code Est Pt Level 3 (64195) Diagnoses Osteoarthritis of left knee M17.12
[2023-02-06 11:11] VITALS: BMI 34.8
== END 2023-02-06 11:42 | disposition home or self-care (01) ==
PROVIDERS: Visit Provider Physician Assistant
DX: M17.12 Unilateral primary osteoarthritis, left knee (principal)
CPT/HCPCS: 99024

== ENCOUNTER → 2023-02-06 10:58 | Outpatient (BNVA) | payer OTHER, MEDICAID, SELFPAY | PROVIDERS: Visit Provider Physician Assistant ==

== ENCOUNTER → 2023-02-11 07:19 | Outpatient (BNV) | payer OTHER, MEDICAID, SELFPAY | PROVIDERS: Admitting Provider Orthopaedic Surgery; PCP Internal Medicine; Visit Provider Internal Medicine | DX: E11.29 Type 2 diabetes mellitus with other diabetic kidney complication (principal); I10 Essential (primary) hypertension; Z96.652 Presence of left artificial knee joint | CPT/HCPCS: 99222; 99232 ==

== ENCOUNTER → 2023-02-11 07:19 | Outpatient (BNV) | payer OTHER, MEDICAID, SELFPAY | PROVIDERS: Admitting Provider Orthopaedic Surgery; PCP Internal Medicine; Visit Provider Orthopaedic Surgery | DX: Z47.1 Aftercare following joint replacement surgery (principal); Z96.652 Presence of left artificial knee joint | CPT/HCPCS: 27447; 99024 ==

== ENCOUNTER 2023-02-11 07:20 | Day surgery (SDC) | payer OTHER, MEDICAID, SELFPAY ==
[2023-01-29 12:17] VITALS: BP 147/73; PULSE 83; RESP 16; O2SAT 96; BMI 35.1
--- NOTE | 2023-01-29 12:37 | HO.ANESPROP2 ---
Documented by User: Celsa Brown NP 02/10/23 09:23 HPI - Anesthesia Eval Consult details Narrative: 67yo M for Left Knee Replacement Total Cardiac optimized No recent illness No CP/SOB with minimal activity d/t knee pain *Very painful medial aspect of Left Knee x 40 years.* FOR[facility]LY [facility] Active Problems Active Problems: All Active Problems (Updated 10/31/22 @ 10:47 by John Archer) Orthostatic hypotension (Acute) Pre-op evaluation (Acute) Arthritis of both knees (Acute) Diabetic neuropathy associated with type 2 diabetes mellitus (Acute) Microalbuminuria (Acute) Osteoarthritis of left knee (Acute) Knee osteoarthritis (Acute) Mild recurrent major depression (Acute) Mixed hyperlipidemia (Acute) Right shoulder pain (Acute) Right knee pain (Acute) Left knee pain (Acute) CKD (chronic kidney disease), stage III (Acute) Type 2 diabetes mellitus with other diabetic kidney complication (Acute) Proteinuria (Acute) Diabetic polyneuropathy associated with type 2 diabetes mellitus (Acute) Hypertriglyceridemia (Acute) Hypertension (Acute) Obesity due to excess calories (Acute) Lumbar stenosis (Acute) Past Medical History Medical History DAVINA (acute kidney injury) Arthritis CKD (chronic kidney disease), stage III Diabetic polyneuropathy associated with type 2 diabetes mellitus Hypertension Hypertriglyceridemia Knee osteoarthritis Left knee pain Low back pain Lumbar spondylosis Lumbar stenosis Mild recurrent major depression Mixed hyperlipidemia Multiple falls Obesity due to excess calories Proteinuria Right knee pain Right shoulder pain Syncope Type 2 diabetes mellitus with other diabetic kidney complication Family History Family History Father Medical history unknown Mother No problems noted. Maternal Grandmother Medical history unknown Family history of problems with anesthesia: No Surgical History Surgical History History of back surgery History of lumbar surgery Hx of cataract surgery Hx of eye surgery S/P evacuation of hematoma History of Problems with Anesthesia: No Social History Social History Household Members: None Housing: Apartment Are you a primary field care manager to a significant other at home: No Do you presently have visiting nurse or other home services: Yes ([employer] 3 hours/day, 2 hours/night) Alcohol intake: never Patient Tobacco Use Status: Former Tobacco user Quit Date: 2021 Tobacco use type: Cigarette Years Smoked: 25 e-Cigarette/Vaping Use: Never Used Second Hand Smoke Exposure: No Use of substances other than those prescribed or required for medical reasons: No Have you been hit, kicked, punched, or otherwise hurt by someone within the past year? If so, by whom?: No Spiritual Healthcare Practices: none Gnosticism Healthcare Practices: none Cultural Healthcare Practices: none Are you DNR?: No Advance Directives: No Advance Directives Information Provided: Yes Advance Directives on File: No Recently lost weight without trying: No Nutrition Risks: No Nutritional Risk service: Yes Current occupational status: disabled Cognitive needs: Yes (walker) Hearing needs: No Vision needs: Yes (reading glasses) Meds Allergies Allergy/AdvReac Type Severity Reaction Status Date / Time Penicillins [PENICILLINS] Allergy Severe RASH Verified 02/06/23 11:11 jay pepper Allergy Intermediate Rash Verified 02/06/23 11:11 pepper (genus Capsicum) AdvReac Intermediate rashes Verified 02/06/23 11:11 Home Medications Medication Instructions Recorded Confirmed Last Taken Type lorazepam 1 mg tablet 1 mg PO BID 04/14/20 02/06/23 Unknown History sertraline 50 mg tablet 50 mg PO DAILY 04/14/20 02/06/23 Unknown History latanoprost 0.005 % eye drops 1 drp ophthalmic (eye) BEDTIME 11/07/20 02/06/23 Unknown History Exam Exam Date and Time: January 29, 2023 1237 Height,Weight and Vital Signs: Height 5 ft 8 in Weight 104.78 kg Last Vital Signs Pulse 83 01/29/23 12:17 Resp 16 01/29/23 12:17 BP 147/73 H 01/29/23 12:17 Pulse Ox 96 01/29/23 12:17 O2 Del Method Room Air 01/29/23 12:17 Pertinent Lab Results Pertinent Lab Results: Laboratory Tests 01/08/23 01/08/23 10:11 10:11 WBC 10.5 Hgb 15.0 Hct 46.1 Plt Count 215 Sodium 142 Potassium 4.5 Chloride 110 H Carbon Dioxide 22 BUN 32 H Creatinine 1.64 H Laboratory Tests 01/08/23 10:11 Hemoglobin A1c % 7.9 Narrative Narrative: EKG 01/2023 Vent. Rate : 089 BPM ? ? Atrial Rate : 089 BPM ?? P-R Int : 152 ms? QRS Dur : 092 ms ? ? QT Int : 368 ms ? ? ? P-R-T Axes : 045 -19 060 degrees ?? QTc Int : 447 ms ? Normal sinus rhythm Inferior infarct , age undetermined Abnormal ECG When compared with ECG of 07-NOV-2020 09:57, No significant change was found ECHO 01/2023 Conclusions: - 1. Normal LV ejection fraction of 60 65% with grade 1 diastolic dysfunction? 2. Limited visualization cardiac valves with normal cardiac? ? ? valvular Doppler ? 3. Upper limits of normal ascending aortic size? NM celia perf SPECT rest & str 01/2023 Impression: ? 1.? Myocardial perfusion imaging study shows likely normal myocardial perfusion 2.? Gated LVEF is 66% 3. Transient ischemic dilatation not present ? EKG is Nondiagnostic for ischemia Airway Mallampati Class: III TM Dist: >3cm Neck ROM: Full Denture: Upper and Lower Heart: RRR Lungs: CTAB Assessment and Plan Assessment Anesthesia Assessment: Anesthesia Plan Discussed and PAT Visit Final Anesthetic Review Family History of Problems with Anesthesia: No History of Problems with Anesthesia: No Documented by User: Stoney Vasquez MD 02/11/23 07:52 [facility] Past Medical History Medical History DAVINA (acute kidney injury) Arthritis CKD (chronic kidney disease), stage III Diabetic polyneuropathy associated with type 2 diabetes mellitus Hypertension Hypertriglyceridemia Knee osteoarthritis Left knee pain Low back pain Lumbar spondylosis Lumbar stenosis Mild recurrent major depression Mixed hyperlipidemia Multiple falls Obesity due to excess calories Proteinuria Right knee pain Right shoulder pain Syncope Type 2 diabetes mellitus with other diabetic kidney complication Family History Family History Father Medical history unknown Mother No problems noted. Maternal Grandmother Medical history unknown Surgical History Surgical History History of back surgery History of lumbar surgery Hx of cataract surgery Hx of eye surgery S/P evacuation of hematoma Social History Social History Household Members: None Housing: Apartment Are you a primary field care manager to a significant other at home: No Do you presently have visiting nurse or other home services: Yes ([employer] 3 hours/day, 2 hours/night) Alcohol intake: never Patient Tobacco Use Status: Former Tobacco user Quit Date: 2021 Tobacco use type: Cigarette Years Smoked: 25 e-Cigarette/Vaping Use: Never Used Second Hand Smoke Exposure: No Use of substances other than those prescribed or required for medical reasons: No Have you been hit, kicked, punched, or otherwise hurt by someone within the past year? If so, by whom?: No Spiritual Healthcare Practices: none Gnosticism Healthcare Practices: none Cultural Healthcare Practices: none Are you DNR?: No Advance Directives: No Advance Directives Information Provided: Yes Advance Directives on File: No Recently lost weight without trying: No Nutrition Risks: No Nutritional Risk service: Yes Current occupational status: disabled Cognitive needs: Yes (walker) Hearing needs: No Vision needs: Yes (reading glasses) Meds Allergies Allergy/AdvReac Type Severity Reaction Status Date / Time Penicillins [PENICILLINS] Allergy Severe RASH Verified 02/06/23 11:11 jay pepper Allergy Intermediate Rash Verified 02/06/23 11:11 pepper (genus Capsicum) AdvReac Intermediate rashes Verified 02/06/23 11:11 Home Medications Medication Instructions Recorded Confirmed Last Taken Type lorazepam 1 mg tablet 1 mg PO BID 04/14/20 02/06/23 Unknown History sertraline 50 mg tablet 50 mg PO DAILY 04/14/20 02/06/23 Unknown History latanoprost 0.005 % eye drops 1 drp ophthalmic (eye) BEDTIME 11/07/20 02/06/23 Unknown History Assessment and Plan Final Anesthetic Review NPO: Yes ASA Class: III Final Preanesthetic Review: No Changes in Pt Med Stat, Meds/Allgs Chart Reviewed, Consent Obtained/Reviewed and Anes Risks/Benef Reviewed Patient Risk: Intermediate Procedure Risk: Intermediate Anesthetic Plan Anesthetic Plan: Spinal and Regional Block Disposition: Standard PACU
[2023-02-11] VITALS (14 sets, daily range): BP systolic 116–169; BP diastolic 63–96; PULSE 68–101; RESP 16–18; TEMP 36.2–36.9; O2SAT 92–99; BMI 37.1
--- NOTE | ~2023-02-11 | XR_ITS ---
EXAMINATION: XR KNEE, LEFT CLINICAL INFORMATION: Status post total left knee arthroplasty. COMPARISON: None available. TECHNIQUE: Two views of the left knee. FINDINGS: The patient is status post left knee arthroplasty showing good anatomic alignment and no evidence for hardware malfunction. There is no acute fracture. Mild to moderate intra-articular and soft tissue air is seen. Multilevel skin bruce are seen anteriorly. XR/XR knee LT 2V IMPRESSION: Postsurgical changes. No hardware abnormality. No acute fracture.
--- OUTSIDE RECORDS SUMMARY | 2023-02-11 07:22 | XMS_ITS | Continuity of Care Document ---
Author Name Unknown Organization [facility] Address [address] [place] [address]- Care Team Providers Care Master Naval Parachutist Name Role Phone Orville Álvarez MD, Kaitlin Primary Care Physician [phone] Encounter [facility] Date(s): 11/29/22 - 12/29/22 [facility] [address] [place] [id number] Allergies, Adverse Reactions, Alerts Substance Reaction Severity Status penicillins Active Optiray 320 1 hives Persistent Mild Active 1no meds given Medications Amlodipine = 10 mg, By Mouth, Daily, 0 Refills, Maintenance, 08/02/16 10:05:11 Start Date: 08/02/16 Status: Ordered Aspirin Tablet 81 mg, Daily, Refills 0, Maintenance, 08/02/16 10:05:43 Start Date: 08/02/16 Status: Ordered Benazepril = 20 mg, By Mouth, Daily, 0 Refills, Maintenance, 08/02/16 10:04:23 Start Date: 08/02/16 Status: Ordered diclofenac sodium = 75 mg, 2 times a day, 0 Refills, Maintenance, 08/02/16 10:05:27 Start Date: 08/02/16 Status: Ordered fenofibrate 145 mg oral tablet 1 tablet = 145 mg, By Mouth, Daily, 0 Refills, Maintenance, 08/02/16 10:04:44 Start Date: 08/02/16 Status: Ordered Freestyle gayle 2 reader Freestyle gayle 2 reader, See Instructions, # 1 each, Refills 0, Tot. Refills 0, Maintenance, Used to monitor Bg Dx E11.9, 11/13/22 15:28:00 EDT, Supply, 172, cm, 09/16/22 15:54:00 EDT, Height Start Date: 11/13/22 Status: Ordered Freestyle gayle 2 sensor Freestyle gayle 2 sensor, See Instructions, # 2 each, Refills 11, Tot. Refills 11, Maintenance, Change every 14 days., 10/30/22 10:48:00 EDT, Supply, 172, cm, 09/16/22 15:54:00 EDT, Height Start Date: 10/30/22 Status: Ordered Humalog Inj Subcutaneous Infusion, 0 Refills, Maintenance, 08/02/16 10:06:37 Start Date: 08/02/16 Status: Ordered Hydrochlorothiazide By Mouth, Daily, 0 Refills, Maintenance, 08/02/16 10:03:39 Start Date: 08/02/16 Status: Ordered Insulin pen needle 31x 4 Insulin pen needle 31x 4 , See Instructions, # 120 each, Refills 5, Tot. Refills 5, Maintenance, use 4 X daily for type 2 DM, 09/16/22 16:51:00 EDT, Supply, 172, cm, 09/16/22 15:54:00 EDT, Height Start Date: 09/16/22 Status: Ordered Januvia 100 mg oral tablet = 100 mg, By Mouth, Daily, # 30 tablet, 0 Refills, Maintenance, 08/02/16 10:04:59, Tablet Start Date: 08/02/16 Status: Ordered Januvia 25 mg oral tablet = 25 mg, By Mouth, Daily, # 30 tablet, 6 Refills, Maintenance, 09/16/22 16:42:00 EDT, Tablet, [facility], Partial fill upon patient request if the prescription is for a schedule II opioid drug., 172, cm, 09/16/22 15:54:00 EDT, Height Start Date: 09/16/22 Status: Ordered metFORMIN 500 mg oral tablet, extended release 1 tablet = 500 mg, By Mouth, 2 times a day, # 60 tablet, 6 Refills, Maintenance, 09/16/22 16:39:00 EDT, ER Tablet, [facility], Partial fill upon patient request if the prescription isfor a schedule II opioid drug., 172, cm, 09/16/22 15:54... Start Date: 09/16/22 Status: Ordered QUEtiapine 100 mg oral tablet 100 mg, 1, tablet, By Mouth, Daily, Refills 0, Maintenance, 08/02/16 10:07:25 Start Date: 08/02/16 Status: Ordered Sertraline = 100 mg, By Mouth, Daily, 0 Refills, Maintenance, 08/02/16 10:06:57 Start Date: 08/02/16 Status: Ordered traZODone 50 mg oral tablet 50 mg, 1, tablet, By Mouth, Daily at bedtime, Refills 0, Maintenance, 08/02/16 10:07:10 Start Date: 08/02/16 Status: Ordered Tresiba FlexTouch 100 units/mL subcutaneous solution = 40 units, Subcutaneous Infusion, Daily, # 15 mL, 7 Refills, Maintenance, 09/18/22 16:39:00 EDT, [facility], Partial fill upon patient request if the prescription is for a schedule II opioid drug., 172, cm, 09/16/22 15:54:00 EDT, Height Start Date: 09/18/22 Status: Ordered Trulicity Pen 1.5 mg/0.5 mL subcutaneous solution 0.5 mL = 1.5 mg, Subcutaneous Injection, Every week, rotate injection sites, # 2 mL, 6 Refills, Maintenance, 09/16/22 16:40:00 EDT, Solution, [facility], Partial fill upon patient request if the prescription is for a schedule II opioid marina... Start Date: 09/16/22 Status: Ordered Problem List Condition Confirmation Course Effective Dates Status Health St atus Informant Obese class II Confirmed Active Patient Care team information Care Team Personnel Name: Orville Álvarez MD , Tram Haro Position: Reference Physician Member Role: PCP Address: Address: [address] [place] [address]- Care Team Related Persons Name: RM GARCIA Address: home [address] [address] Name: PT STATES, NONE
--- OUTSIDE RECORDS SUMMARY | 2023-02-11 07:22 | XMS_ITS | Continuity of Care Document ---
Author Name Unknown Organization [facility] Address [address] [place] [address]- Care Team Providers Care Senior Software Architect Name Role Phone Orville lÁvarez MD, Kaitlin Primary Care Physician Encounter [facility] Date(s): 09/20/22 - 10/20/22 [facility] [address] [place] [address]- Allergies, Adverse Reactions, Alerts Substance Reaction Severity [...] Date: 08/02/16 Status: Ordered Freestyle gayle 2 sensor Freestyle gayle 2 sensor, See Instructions, # 2 each, Refills 11, Tot. Refills 11, Maintenance, Change every 14 days., 09/18/22 14:35:00 EDT, Supply, 172, cm, 09/16/22 15:54:00 EDT, Height Start Date: 09/18/22 Status: Ordered Humalog Inj Subcutaneous Infusion, 0 [...] Refills, Maintenance, 09/16/22 16:39:00 EDT, ER Tablet, [facility], Partial fill upon patient [...] 6 Refills, Maintenance, 09/16/22 16:40:00 EDT, Solution, [facility], Partial fill upon patient request if the prescription is for a schedule II opioid marnia... Start Date: 09/16/22 Status: Ordered Problem List Condition Confirmation Course Effective Dates Status Health St atus Informant Obese class II Confirmed Active Patient Care team information Care Team Personnel Name: Orville Álvarez MD , Tram Haro Position: Reference Physician Member Role: PCP Address: Address: [address] [place] [address]- Care Team Related Persons Name: RADHA RM Address: home [address] [address] Name: STATES, NONE
--- OUTSIDE RECORDS SUMMARY | 2023-02-11 07:22 | XMS_ITS | Continuity of Care Document ---
Author Name Unknown Organization [facility] Address [address] [place] [address]- Care Team Providers Care Transportation Attendant Name Role Phone Orville Álvarez MD, Tram Haro Primary Care Physician Encounter [facility] Date(s): 07/16/22 - 10/16/22 [facility] [address] [place] [id number] Attending Physician: Chadd FIELDS, Maegan White Admitting Physician: Chadd FIELDS, Maegan White Referring Physician: Tram Royal MD Allergies, Adverse Reactions, Alerts Substance Reaction Severity [...] Physician Member Role: PCP Address: Address: [address] [place] [address]- Care Team Related Persons Name: RM GARCIA Address: home [address] [address] Name: PT STATES, NONE
--- OUTSIDE RECORDS SUMMARY | 2023-02-11 07:22 | XMS_ITS | Continuity of Care Document ---
Author Name Unknown Organization [facility] Address [address] [place] [address]- Care Team Providers Care Manager Implementation Name Role Phone Tram Royal MD Primary Care Phys[id number] [address] [place] [id number] Attending Physician: Janina Cordero MD Admitting Physician: Janina Cordero MD Referring Physician: Tram Royal MD Allergies, Adverse [...] 08/02/16 10:04:44 Start Date: 08/02/16 Status: Ordered Humalog Inj Subcutaneous Infusion, 0 Refills, Maintenance, 08/02/16 10:06:37 Start Date: 08/02/16 Status: Ordered Hydrochlorothiazide By Mouth, Daily, 0 Refills, Maintenance, 08/02/16 10:03:39 Start Date: 08/02/16 Status: Ordered Januvia 100 mg oral tablet = 100 mg, By Mouth, Daily, # 30 tablet, 0 Refills, Maintenance, 08/02/16 10:04:59, Tablet Start Date: 08/02/16 Status: Ordered Lantus Inj 50unit, Subcutaneous Infusion, Daily at bedtime, 0 Refills, Maintenance, 08/02/16 10:05:57 Start Date: 08/02/16 Status: Ordered Metformin = 1,000 mg, By Mouth, 2 times a day, 0 Refills, Maintenance, 08/02/16 10:04:01 Start Date: 08/02/16 Status: Ordered QUEtiapine 100 mg oral tablet [...] 08/02/16 10:07:10 Start Date: 08/02/16 Status: Ordered Trulicity Pen 0.75 mg/0.5 mL subcutaneous solution 0.5 mL = 0.75 mg, Subcutaneous Injection, Every week, call [facility] for refills and to update us.1mo., # 2.5 mL, 1 Refills, Maintenance, 08/02/16 11:06:40, Solution Start Date: 08/02/16 Status: Ordered Patient Care team information Care Team Personnel Name: Orville Álvarez MD , Tram Haro Position: Reference Physician Member Role: PCP Address: Address: [address] [place] [address]- Care Team Related Persons Name: RM GARCIA Address: home [address] [address] Name: PT STATES, NONE
--- OUTSIDE RECORDS SUMMARY | 2023-02-11 07:22 | XMS_ITS | Continuity of Care Document ---
Author Name Unknown Organization [facility] Address [address] [place] [address]- Care Team Providers Care Process Coach Name Role Phone Orville Álvarez MD, Kaitlin Primary Care Physician Encounter [facility] Date(s): 09/16/22 - 10/16/22 [facility] [address] [place] [id number] Attending Physician: Admtr, Ar8 Admitting Physician: Admtr, Ar8 Referring Physician: Admtr, Ar8 Allergies, Adverse Reactions, Alerts Substance Reaction Severity [...] atus Informant Obese class II Confirmed Active Note * Event Display: Non BH Lab Results Authored Date: [id number] Patient Care team information Care Team Personnel Name: Orville Álvarez MD , Tram Haro Position: Reference Physician Member Role: PCP Address: Address: [address] [place] [address]- Care Team Related Persons Name: RM GARCIA Address: home [address] [address] Name: PT STATES, NONE
--- OUTSIDE RECORDS SUMMARY | 2023-02-11 07:22 | XMS_ITS | Continuity of Care Document ---
Author Name Unknown Organization [facility] Address [address] [place] [address]- Care Team Providers Care Career Development Coordinator Name Role Phone Orville Álvarez MD, Kaitlin Primary Care Physician [place] [facility] 10[place]18/22 [facility] [address] [place] [address]- Allergies, Adverse Reactions, Alerts Substance Reaction Severity [...] Physician Member Role: PCP Address: Address: [address] [place] [address]- Care Team Related Persons Name: RADHA RM Address: home [address] [address] Name: STATES, NONE
--- OUTSIDE RECORDS SUMMARY | 2023-02-11 07:22 | XMS_ITS | Continuity of Care Document ---
Author Name Unknown Organization [facility] Address [address] [place] [address]- Care Team Providers Care Automotive Paint Technician Name Role Phone Orville Álvarez MD, Kaitlin Primary Care Physician Encounter [facility] [place] Date(s): 10/22/22 - 11/21/22 [facility] [address] [place], [place] [address] Allergies, Adverse Reactions, Alerts Substance Reaction Severity [...] Maintenance, 09/16/22 16:40:00 EDT, Solution, [facility], Partial fill [...] Physician Member Role: PCP Address: Address: [address] [place] [address]- Care Team Related Persons Name: RM GARCIA Address: home [address] [address] Name: PT STATES, NONE
--- OUTSIDE RECORDS SUMMARY | 2023-02-11 07:23 | XMS_ITS | Patient Health Record ---
Author Name Unknown Organization [facility] Address Placement of archive d users [place], [place] [id number] Care Team Providers Care Vice President Underwriting Name Role Phone ShayDC, ZZ19 Unavailable Unavailable Mary Ellen Sena Unavailable Unavailable ENCOUNTERS from 1955 to 2023-02-11 Encounter Location Date Provider Diagnosis [facility] [address] [place] [address] [id number] Dec, ZZ19 ZZZZ [facility] [address] [place] [address] [id number] November, ZZ19 ZZZZ [facility] [address] [place] [address] [id number] Oct, ZZ19 ZZZZ [facility] [address] [place] [address] [id number] Oct, ZZ19 ZZZZ [facility] [address] [place] [address] [id number] Oct, ZZ19 ZZZZ [facility] [address] [place] [address] [id number] Sep, ZZ19 ZZZZ [facility] [address] [place] [address] [id number] Sep, ZZ19 ZZZZ [facility] [address] [place] [address] [id number] Aug, ZZ19 ZZZZ [facility] [address] [place] [address] [id number] Aug, ZZ19 ZZZZ [facility] [address] [place] [address] [id number] Aug, ZZ19 ZZZZ [facility] [address] [place] [address] [id number] Jul, ZZ19 ZZZZ [facility] [address] [place] [address] [id number] Jul, ZZ19 ZZZZ [facility] [address] [place] [address] [id number] Jun, ZZ19 [place] [facility] [address] [place] [address] [id number] Jun, ZZ19 ZZZZ [facility] [address] [place] [address] [id number] Jun, ZZ19 ZZZZ [facility] [address] [place] [address] [id number] May, ZZ19 [facility] [address], [place] [id number] Apr, Mary Ellen DayZRuben [facility] [address] [place] [address] [id number] Apr, ZZ19 SAL [facility] [address] [place] [address] [id number] Mar, ZZ19 ZZZZ SOCIAL HISTORY Sex Assigned At : Social History Observation Description Sex Assigned At Unknown REASON FOR REFERRAL from 1955 to 2023-02-11 Referral Organization [facility] Referring Provider First Name ZZ19 Referring Provider Last Name ZZZZ Referred Provider Case,Management Referral Priority Routine Referral Organization [facility] Referring Provider First Name ZZ19 Referring Provider Last Name ZZZZ Referred Provider Housing,Application Referral Priority Routine Referral Organization [facility] Referring Provider First Name ZZ19 Referring Provider Last Name ZZZZ Referred Provider Housing,Referral Referral Priority Routine Referral Organization [facility] Referring Provider First Name ZZ19 Referring Provider Last Name ZZZZ Referred Provider Mail,Pickup Referral Priority Routine Referral Organization [facility] Referring Provider First Name ZZ19 Referring Provider Last Name ZZZZ Referred Provider Long Term,Referral Referral Priority Routine Referral Organization [facility] Referring Provider First Name ZZ19 Referring Provider Last Name ZZZZ Referred Provider Housing,Application Referral Priority Routine Referral Organization [facility] Referring Provider First Name ZZ19 Referring Provider Last Name ZZZZ Referred Provider Interagency,Case Con ference Referral Priority Routine Referral Organization [facility] Referring Provider First Name ZZ19 Referring Provider Last Name ZZZZ Referred Provider Supportive,Counselin g Referral Priority Routine Referral Organization [facility] Referring Provider First Name ZZ19 Referring Provider Last Name ZZZZ Referred Provider Case,Management Referral Priority Routine Referral Organization [facility] Referring Provider First Name ShayZKim Referring Provider Last Name ZZRuben Referring Provider [facility] Referred Provider Benefits,Interventio n Referral Priority Routine Referral Organization [facility] Referring Provider First Name ZZJuez Referring Provider Last Name ZZRuben Referring Provider [facility] Referred Provider Housing,Search Referral Priority Routine Referral Organization [facility] Referring Provider First Name ZZJuez Referring Provider Last Name ZZRuben Referring Provider [facility] Referred Provider Mental Health,Suppor t Offered Referral Priority Routine Referral Organization [facility] Referring Provider First Name ZZ19 Referring Provider Last Name ZZZZ Referred Provider Case,Management Referral Priority Routine Referral Organization [facility] Referring Provider First Name ZZ19 Referring Provider Last Name ZZZZ Referred Provider Housing,Application Referral Priority Routine Referral Organization [facility] Referring Provider First Name ZZ19 Referring Provider Last Name ZZZZ Referred Provider Housing,Search Referral Priority Routine Referral Organization [facility] Referring Provider First Name ZZ19 Referring Provider Last Name ZZZZ Referred Provider Interagency,Case Con ference Referral Priority Routine Referral Organization [facility] Referring Provider First Name ZZ19 Referring Provider Last Name ZZZZ Referred Provider Supportive,Counselin g Referral Priority Routine Referral Organization [facility] Referring Provider First Name ZZ19 Referring Provider Last Name ZZZZ Referred Provider Case,Management Referral Priority Routine Referral Organization [facility] Referring Provider First Name ZZ19 Referring Provider Last Name ZZZZ Referred Provider Housing,Application Referral Priority Routine Referral Organization [facility] Referring Provider First Name ZZ19 Referring Provider Last Name ZZZZ Referred Provider Case,Management Referral Priority Routine Referral Organization [facility] Referring Provider First Name ZZ19 Referring Provider Last Name ZZZZ Referred Provider Housing,Referral Referral Priority Routine Referral Organization [facility] Referring Provider First Name ZZ19 Referring Provider Last Name ZZZZ Referred Provider Case,Management Referral Priority Routine Referral Organization [facility] Referring Provider First Name ZZ19 Referring Provider Last Name ZZZZ Referred Provider Housing,Application Referral Priority Routine Referral Organization [facility] Referring Provider First Name ZZ19 Referring Provider Last Name ZZZZ Referred Provider Interagency,Case Con ference Referral Priority Routine Referral Organization [facility] Referring Provider First Name ZZ19 Referring Provider Last Name ZZZZ Referred Provider Case,Management Referral Priority Routine Referral Organization [facility] Referring Provider First Name ZZ19 Referring Provider Last Name ZZZZ Referred Provider Housing,Search Referral Priority Routine Referral Organization [facility] Referring Provider First Name ZZ19 Referring Provider Last Name ZZZZ Referred Provider Interagency,Case Con ference Referral Priority Routine Referral Organization [facility] Referring Provider First Name ZZ19 Referring Provider Last Name ZZZZ Referred Provider Benefits,Interventio n Referral Priority Routine Referral Organization [facility] Referring Provider First Name ZZ19 Referring Provider Last Name ZZZZ Referred Provider Case,Management Referral Priority Routine Referral Organization [facility] Referring Provider First Name ZZ19 Referring Provider Last Name ZZZZ Referred Provider Housing,Search Referral Priority Routine Referral Organization [facility] Referring Provider First Name ZZ19 Referring Provider Last Name ZZZZ Referred Provider Interagency,Case Con ference Referral Priority Routine Referral Organization [facility] Referring Provider First Name ZZ19 Referring Provider Last Name ZZZZ Referred Provider [facility] Referral Priority Routine Referral Organization [facility] Referring Provider First Name ZZ19 Referring Provider Last Name ZZZZ Referred Provider Case,Management Referral Priority Routine Referral Organization [facility] Referring Provider First Name ZZ19 Referring Provider Last Name ZZZZ Referred Provider Housing,Search Referral Priority Routine Referral Organization [facility] Referring Provider First Name ZZ19 Referring Provider Last Name ZZZZ Referred Provider Interagency,Case Con ference Referral Priority Routine Referral Organization [facility] Referring Provider First Name ZZ19 Referring Provider Last Name ZZZZ Referred Provider [facility] Referral Priority Routine Referral Organization [facility] Referring Provider First Name ZZ19 Referring Provider Last Name ZZZZ Referred Provider Supportive,Counselin g Referral Priority Routine Referral Organization [facility] Referring Provider First Name ZZ19 Referring Provider Last Name ZZZZ Referred Provider Case,Management Referral Priority Routine Referral Organization [facility] Referring Provider First Name ZZ19 Referring Provider Last Name ZZZZ Referred Provider [facility] Referral Priority Routine Referral Organization [facility] Referring Provider First Name ZZ19 Referring Provider Last Name ZZZZ Referred Provider Case,Management Referral Priority Routine Referral Organization [facility] Referring Provider First Name ZZ19 Referring Provider Last Name ZZZZ Referred Provider Housing,Application Referral Priority Routine Referral Organization [facility] Referring Provider First Name ZZ19 Referring Provider Last Name ZZZZ Referred Provider Clothing,Given Referral Priority Routine Referral Organization [facility] Referring Provider First Name ZZ19 Referring Provider Last Name ZZZZ Referred Provider [facility] Referral Priority Routine Referral Organization [facility] Referring Provider First Name ZZ19 Referring Provider Last Name ZZZZ Referred Provider Case,Management Referral Priority Routine Referral Organization [facility] Referring Provider First Name ZZ19 Referring Provider Last Name ZZZZ Referred Provider Housing,Search Referral Priority Routine Referral Organization [facility] Referring Provider First Name ZZ19 Referring Provider Last Name ZZZZ Referred Provider Interagency,Case Con ference Referral Priority Routine Referral Organization [facility] Referring Provider First Name ZZ19 Referring Provider Last Name ZZZZ Referred Provider [facility] Referral Priority Routine Referral Organization [facility] Referring Provider First Name ZZ19 Referring Provider Last Name ZZZZ Referred Provider Accompanied,Client Referral Priority Routine Referral Organization [facility] Referring Provider First Name ZZ19 Referring Provider Last Name ZZZZ Referred Provider Benefit,Obtained (SS I,SSDI) Referral Priority Routine Referral Organization [facility] Referring Provider First Name ZZ19 Referring Provider Last Name ZZZZ Referred Provider Case,Management Referral Priority Routine Referral Organization [facility] Referring Provider First Name ZZ19 Referring Provider Last Name ZZZZ Referred Provider Housing,Search Referral Priority Routine Referral Organization [facility] Referring Provider First Name ZZ19 Referring Provider Last Name ZZZZ Referred Provider Interagency,Case Con ference Referral Priority Routine Referral Organization [facility] Referring Provider First Name ZZ19 Referring Provider Last Name ZZZZ Referred Provider Supportive,Counselin g Referral Priority Routine Referral Organization [facility] Referring Provider First Name ZZ19 Referring Provider Last Name ZZZZ Referred Provider Case,Management Referral Priority Routine Referral Organization [facility] Referring Provider First Name ZZ19 Referring Provider Last Name ZZZZ Referred Provider Housing,Application Referral Priority Routine Referral Organization [facility] Referring Provider First Name ZZ19 Referring Provider Last Name ZZZZ Referred Provider Supportive,Counselin g Referral Priority Routine Referral Organization [facility] Referring Provider First Name ZZ19 Referring Provider Last Name ZZZZ Referred Provider Case,Management Referral Priority Routine Referral Organization [facility] Referring Provider First Name ZZ19 Referring Provider Last Name ZZZZ Referred Provider Housing,Search Referral Priority Routine Referral Organization [facility] Referring Provider First Name ZZ19 Referring Provider Last Name ZZZZ Referred Provider Case,Management Referral Priority Routine Referral Organization [facility] Referring Provider First Name ZZ19 Referring Provider Last Name ZZZZ Referred Provider Housing,Search Referral Priority Routine Referral Organization [facility] Referring Provider First Name ZZ19 Referring Provider Last Name ZZZZ Referred Provider Interpretation,Servi ce Referral Priority Routine Referral Organization [facility] Referring Provider First Name ZZ19 Referring Provider Last Name ZZZZ Referred Provider Supportive,Counselin g Referral Priority Routine REASON FOR VISIT No Information MENTAL STATUS No Information PLAN OF TREATMENT Referrals Referral Date Details Management Case Application Housing Referral Housing Pickup Mail Referral Long Term Application Housing Case Conference Inte ragency Counseling Supportiv e Management Case Intervention Benefit s Search Housing Support Offered Ment al Health Management Case Application Housing Search Housing Case Conference Inte ragency Counseling Supportiv e Management Case Application Housing Management Case Referral Housing Management Case Application Housing Case Conference Inte ragency Management Case Search Housing Case Conference Inte ragency Intervention Benefit s Management Case Search Housing Case Conference Inte ragency [facility] Management Case Search Housing Case Conference Inte ragency [facility] Counseling Supportiv e Management Case [facility] Management Case Application Housing Given Clothing [facility] Management Case Search Housing Case Conference Inte ragency [facility] Client Accompanied Obtained (SSI,SSDI) Benefit Management Case Search Housing Case Conference Inte ragency Counseling Supportiv e Management Case Application Housing Counseling Supportiv e Management Case Search Housing Management Case Search Housing Service Interpretati on Counseling Supportiv e Insurance Providers Payer Name Payer Address Payer Phone Insured Name Patient Relationship to Insured Coverage Start Date Coverage End Date Subscriber Number Group Number Neighborhoo d Health Plan [facility] [id number] [facility] [id number] Carlos Cabrera Self - patient is the insured 2 2 [id number]
--- OUTSIDE RECORDS SUMMARY | 2023-02-11 07:23 | XMS_ITS | Continuity of Care Document ---
Author Name Unknown Organization [facility] Address [address] [place] [address]- Care Team Providers Care Syrup Shed Supervisor Name Role Phone Orville Álvarez MD, Kaitlin Primary Care Physician Encounter [facility] Date(s): 04/17/22 - 05/17/22 [facility] [address] [place] [id number] Allergies, Adverse Reactions, Alerts [...] 0.75 mg, Subcutaneous Injection, Every week, call pascual mcfarlane for refills and to update us.1mo., # 2.5 mL, 1 Refills, Maintenance, 08/02/16 11:06:40, Solution Start Date: 08/02/16 Status: Ordered Patient Care team information Care Team Personnel Name: Orville Álvarez MD , Tram Haro Position: Reference Physician Member Role: PCP Address: Address: [address] [place] [address]- Care Team Related Persons Name: RM GARCIA Address: home [address] [address] Name: STATES, NONE
[2023-02-11] MEDS: Lactated Ringers 1,000 ML 100 ML IVCONT ×2 (07:50→13:17)
[2023-02-11 07:51] LABS: Glucose, Whole Blood 137 mg/dL (60-115)
[2023-02-11 07:51] LABS: Hematocrit 47.3 % (42.0-52.0); Hemoglobin 15.5 g/dl (14.0-18.0)
--- NOTE | 2023-02-11 09:28 | PC.NURSE ---
dr. trimble spoke with dr. st regarding small closed area below skin that causes patient pain with minimal touch on surgical knee. patient states that it has been there for thirty years, area has been marked so it can be cared for appropriately during dressing stage to not cause additional pain. both doctors stated okay to proceed.
--- NOTE | 2023-02-11 09:53 | MHC.SHP ---
Pre-Procedural Eval Section A Date of Service: 02/11/23 The patient is an INPATIENT: No Changes since office visit: No Cold of Flu in the past 2 weeks, No New Medical Problems, No Changes in Medication and No Patient answered all questions The History & Physical has been completed within 30 days and I have reviewed it.: Yes Section B Chief Complaint: LT TKA Allergies: Allergies Allergy/AdvReac Type Severity Reaction Status Date / Time Penicillins [PENICILLINS] Allergy Severe RASH Verified 02/06/23 11:11 jay pepper Allergy Intermediate Rash Verified 02/06/23 11:11 pepper (genus Capsicum) AdvReac Intermediate rashes Verified 02/06/23 11:11 Plan I have reviewed the history and physical and performed a pertinent physical examination on my patient. No changes have occurred unless specified. Time Spent With Patient Time: Total time managing care of this patient today ____ minutes.
--- NOTE | 2023-02-11 13:09 | PM.OP ---
Brief Operative Note Date of Service: 02/11/23 Pre-op diagnosis: Left Knee OA Post-op diagnosis: same Procedure: Left TKA Implants: [place] [employer] 12/09/ps/29a press fit posterior stabilized Surgeon: Wesley Apple MD Anesthesia: regional and spinal Was an Line Construction Supervisor used for this Procedure?: Yes Line Construction Supervisor: Samy Ryan Estimated blood loss (mL): 20 Tourniquet time (min): 65 Pathology: other Condition: stable Disposition: PACU
[2023-02-11] MEDS: HYDROmorphone HCl 0.5 MG/0.5 ML SYRINGE 0.25 MG IVPUSH ×3 (13:16→22:46)
[2023-02-11] MEDS: ceFAZolin Sodium/Dextrose,Iso 2 GM/50 ML PIGGYBACK IV (13:16)
--- NOTE | 2023-02-11 14:23 | PHA.MEDREC ---
Pharmacy Consult ? Medication Reconciliation Pharmacy has completed the medication reconciliation. Spoke to patient to confirm meds. Per patient, they claim to still take sertraline. However, when asked which pharmacy they fill at, they mentioned it was the [facility] on [facility]. Called both [facility] and [facility] to confirm sertraline, however both pharmacies stated they have no record of patient filling sertraline there. Per EMR, last sertraline was added/confirmed in 2019. Took sertraline off med rec since unable to confirm active RX.
[2023-02-11] MEDS: Acetaminophen 325 MG TABLET 650 MG PO (15:30)
[2023-02-11] MEDS: Cyclobenzaprine HCl 10 MG TABLET PO (15:30)
[2023-02-11] MEDS: oxyCODONE HCl Immed Release 5 MG TABLET PO ×2 (15:31→20:47)
--- NOTE | 2023-02-11 16:46 | HO.PM.IMCN ---
History of Present Illness Data of Consult Service Date: 02/11/23 Primary Care Provider: Tram Álvarez MD HPI 67 male with diabetes, HTN, HLD who under L knee elective arthroplasty been seen medical consult for managment of comorbidities of HTN, diabetes and HLD, surgery went well, he's having some pain in the knee, no other acute issues. Review of Systems Review of Systems: pain in the knee o/w Yes Unobtainable due to mental status [facility] Medical History DAVINA (acute kidney injury) Arthritis CKD (chronic kidney disease), stage III Diabetic polyneuropathy associated with type 2 diabetes mellitus Hypertension Hypertriglyceridemia Knee osteoarthritis Left knee pain Low back pain Lumbar spondylosis Lumbar stenosis Mild recurrent major depression Mixed hyperlipidemia Multiple falls Obesity due to excess calories Proteinuria Right knee pain Right shoulder pain Syncope Type 2 diabetes mellitus with other diabetic kidney complication Family History Father Medical history unknown Mother No problems noted. Maternal Grandmother Medical history unknown Surgical History History of back surgery History of lumbar surgery Hx of cataract surgery Hx of eye surgery S/P evacuation of hematoma Social History Household Members: None Housing: Apartment Are you a primary healthcare or medical to a significant other at home: No Do you presently have visiting nurse or other home services: Yes (AD OPERATIONS COORDINATOR) Alcohol intake: never Patient Tobacco Use Status: Former Tobacco user Quit Date: 2021 Tobacco use type: Cigarette Years Smoked: 25 e-Cigarette/Vaping Use: Never Used Second Hand Smoke Exposure: No Use of substances other than those prescribed or required for medical reasons: No Currently Displaying Signs/Symptoms of Drug Intoxication Withdrawal: No Have you been hit, kicked, punched, or otherwise hurt by someone within the past year? If so, by whom?: No Do you feel safe in your current relationship?: No Current Relationship Is there a partner from a previous relationship who is making you feel unsafe now?: No Are you made to feel afraid or neglected: No Spiritual Healthcare Practices: none Tenriism Healthcare Practices: none Cultural Healthcare Practices: none Are you DNR?: No Advance Directives: No Advance Directives Information Provided: Yes Advance Directives on File: No Do you have thoughts of harming others: None Do you have a plan to hurt others: No Plan Recently lost weight without trying: No Eating poorly because of decreased appetite: No Nutrition Risks: No Nutritional Risk Poor oral hygiene: No service: Yes Current occupational status: disabled Cognitive needs: Yes (walker) Hearing needs: No Vision needs: Yes (reading glasses) Meds Allergies Allergy/AdvReac Type Severity Reaction Status Date / Time Penicillins [PENICILLINS] Allergy Severe RASH Verified 02/06/23 11:11 jay pepper Allergy Intermediate Rash Verified 02/06/23 11:11 pepper (genus Capsicum) AdvReac Intermediate rashes Verified 02/06/23 11:11 Active Medications: Current Medications Acetaminophen (Acetaminophen 325 Mg Tablet) 650 mg PO Q6H PRN PRN Reason: Pain, Mild (Pain Scale 1-3) Last Admin: 02/11/23 15:30 Dose: 650 mg Aspirin (Aspirin 325 Mg Tablet) 325 mg PO BID [facility] Celecoxib (Celecoxib 200 Mg Capsule) 200 mg PO BID [facility] Cyclobenzaprine HCl (Cyclobenzaprine Hcl 10 Mg Tablet) 10 mg PO BEDTIME PRN PRN Reason: muscle spasm Last Admin: 02/11/23 15:30 Dose: 10 mg Docusate Sodium (Docusate Sodium 100 Mg Capsule) 100 mg PO BID I[facility] Furosemide (Furosemide 20 Mg Tablet) 20 mg PO DAILY I[facility]; Protocol Hydromorphone HCl (Hydromorphone Hcl 0.5 Mg/0.5 Ml Syringe) 0.25 mg IVPUSH Q4H PRN; Protocol PRN Reason: Pain, Severe (Pain Scale 7-10) Last Admin: 02/11/23 13:16 Dose: 0.25 mg Lactated Ringer's (Lr) 1,000 mls @ 100 mls/hr IVCONT .Q10H I[facility] Stop: 02/12/23 11:35 Last Admin: 02/11/23 13:17 Dose: 100 mls/hr Latanoprost (Latanoprost 0.005 % Ophth Maria Eugenia 2.5 Ml Drops) 1 drop EYE-BOTH BEDTIME [facility] Lorazepam (Lorazepam 1 Mg Tablet) 1 mg PO BID [facility] Ondansetron HCl (Ondansetron Hcl 4 Mg/2 Ml Vial) 4 mg IVPUSH Q8H PRN PRN Reason: Nausea and Vomiting Oxycodone HCl (Oxycodone Hcl Immed Release 5 Mg Tablet) 5 mg PO Q4H PRN PRN Reason: Pain, Moderate(Pain Scale 4-6) Last Admin: 02/11/23 15:31 Dose: 5 mg Oxycodone HCl (Oxycodone Hcl Er 10 Mg Tab.Er.12h) 10 mg PO BID [facility] Sertraline HCl (Sertraline Hcl 50 Mg Tablet) 50 mg PO DAILY [facility] Sodium Chloride (0.9 % Sodium Chloride Flush 3 Ml Syringe) 3 ml IVFLUSH QSHIFT IMT[facility] Last Admin: 02/11/23 15:33 Dose: Not Given Home Medications Medication Instructions Recorded Confirmed Last Taken Type lorazepam 1 mg tablet 1 mg PO BID 04/14/20 02/11/23 02/10/23 History latanoprost 0.005 % eye drops 1 drp ophthalmic (eye) BEDTIME 11/07/20 02/11/23 02/10/23 History dulaglutide 1.5 mg/0.5 mL 1.5 mg subcut POSADAS@0900 02/11/23 02/11/23 02/09/23 History subcutaneous pen injector (Trulicity) metformin 500 mg tablet,extended 500 mg PO BID 02/11/23 02/11/23 02/10/23 History release 24 hr sitagliptin phosphate 25 mg tablet 25 mg PO DAILY 02/11/23 02/11/23 02/10/23 History (Leonarduvia) Physical Exam Vital Signs and Narrative: Vital Signs: Last Vital Signs Temp 98.2 F 02/11/23 16:00 Pulse 74 02/11/23 16:00 Resp 18 02/11/23 16:00 BP 140/79 H 02/11/23 16:00 Pulse Ox 99 02/11/23 16:00 O2 Del Method Room Air 02/11/23 16:00 BMI result Body Mass Index 37.1 Results Labs 02/11/23 07:45 Labs: Laboratory Results - last 24 hr 02/11/23 02/11/23 02/11/23 07:45 07:48 13:24 POC Glucose 137 H Blood Type O Positive Cancelled Antibody Screen NEGATIVE Cancelled Imaging Radiologist's Impressions: Impressions Knee X-Ray 02/11/23 12:20 IMPRESSION: Postsurgical changes. No hardware abnormality. No acute fracture. Assessment and Plan (1) Status post total knee replacement, left: Status: Acute (2) Type 2 diabetes mellitus with other diabetic kidney complication: Status: Acute Plan 67 male with diabetes, HTN, HLD who under L knee elective arthroplasty been seen medical consult for managment of comorbidities of HTN, diabetes and HLD, surgery went well, he's having some pain in the knee, no other acute issues at this time s/p L TKR, management per surgery dibates, hold meds til tomorrow, SSI,check POCs HTN hold med until tomorrow HLD statin and fenofibrate Time Spent With Patient Time: Total time managing care of this patient today ____ minutes.
[2023-02-11 16:49] LABS: Glucose, Whole Blood 192 mg/dL (60-115)
[2023-02-11 20:00] LABS: Glucose, Whole Blood 227 mg/dL (60-115)
[2023-02-11] MEDS: oxyCODONE HCl ER 10 MG TAB.ER.12H PO (20:46)
[2023-02-11] MEDS: Celecoxib 200 MG CAPSULE PO (20:46)
[2023-02-11] MEDS: LORazepam 1 MG TABLET PO (20:46)
[2023-02-11] MEDS: Docusate Sodium 100 MG CAPSULE PO (20:47)
[2023-02-11] MEDS: Insulin Lispro 100 UNIT/ML 3 ML VIAL SUBCUT (20:48)
[2023-02-11] MEDS: Latanoprost 0.005 % Ophth Sol 2.5 ML DROPS 1 DROP EYE-BOTH (20:55)
[2023-02-12] VITALS (8 sets, daily range): BP systolic 135–165; BP diastolic 75–84; PULSE 87–108; RESP 18–19; TEMP 36.4–36.8; O2SAT 93–98
[2023-02-12] MEDS: Lactated Ringers 1,000 ML 100 ML IVCONT ×2 (00:22→11:11)
[2023-02-12] MEDS: oxyCODONE HCl Immed Release 5 MG TABLET PO ×3 (01:24→14:54)
[2023-02-12] MEDS: HYDROmorphone HCl 0.5 MG/0.5 ML SYRINGE 0.25 MG IVPUSH ×3 (03:47→21:42)
[2023-02-12 05:31] LABS: MANUAL DIFF FLAG NO
[2023-02-12 05:35] LABS: Basophils Percent Auto 0.3 % (0-2); Eosinophils Absolute Auto 0.1 X10*3/uL (0.0-0.4); Eosinophils Percent Auto 1.4 % (0-4); Hematocrit 41.1 % (42.0-52.0); Hemoglobin 13.5 g/dl (14.0-18.0); Imm Gran Abs Auto 0.02 X10*3/uL (0.00-0.03); Imm Gran Pct Auto 0.2 % (0.0-0.4); Lymphocytes Absolute Auto 1.5 X10*3/uL (1.2-4.9); Lymphocytes Percent Auto 15.3 % (20-40); Mean Corpuscular HGB Conc 32.8 g/dl (31.0-36.0); Mean Corpuscular Hemoglobin 28.4 pg (27.0-33.0); Mean Corpuscular Volume 86.5 fL (80.0-98.0); Mean Platelet Volume 12.8 fL (9.4-12.4); Monocytes Absolute Auto 1.1 X10*3/uL (0.1-1.2); Monocytes Percent Auto 11.2 % (2-11); Neutrophils Absolute Auto 7.2 x10*3/uL (2.0-8.3); Neutrophils Percent Auto 71.6 % (45-73); Platelet Count 189 X10*3/uL (160-400); Red Blood Count 4.75 X10*6/uL (4.60-5.80); Red Cell Distribution Width 16.3 % (11.0-16.0); White Blood Count 10.1 X10*3/uL (4.8-10.8)
[2023-02-12 05:49] LABS: Anion Gap 13 (12-20); Blood Urea Nitrogen 22 mg/dL (9-16); Calcium 9.1 mg/dL (8.4-10.2); Carbon Dioxide 24 mmol/L (22-29); Chloride 108 mmol/L (96-108); Creatinine Clr Calc Pharmacy 68.6; Estimated Glomerular Filt Rate 57; Glucose Fasting 198 mg/dL (60-99); Potassium 4.5 mmol/L (3.3-5.1); Sodium 140 mmol/L (135-145)
[2023-02-12 07:38] LABS: Glucose, Whole Blood 199 mg/dL (60-115)
--- NOTE | 2023-02-12 07:41 | P.OP_ITS ---
Operative Note Operative Note Date of Service: 02/12/23 Narrative: Date of Service: 02/11/23 Pre-op diagnosis: Left Knee OA Post-op diagnosis: same Procedure: Left TKA Implants: [place] [employer] //9ps/29a press fit posterior stabilized Surgeon: Wesley Apple MD Anesthesia: regional and spinal Was an Corporate Strategy Analyst used for this Procedure?: Yes Corporate Strategy Analyst: Samy Ryan Estimated blood loss (mL): 20 Tourniquet time (min): 65 Pathology: other Condition: stable Disposition: PACU Procedure in detail: The patient was brought to the operating room and prepped and draped in standard sterile fashion. A time-out was called to identify proper site proper procedure proper surgeon and IV antibiotics were administered. 1 g of IV tranexamic acid was administered. I began by making a midline incision to the retinaculum and performed a medial parapatellar arthrotomy. The patella was translated laterally and the knee was flexed up.The medial compartment was eburnated. I performed a small medial peel and resected the infrapatellar fat pad. [place]'s line was then used to drill my intramedullary femoral guide and my distal femur cut of 10 mm was made in 5 degrees of valgus while protecting the soft tissues. I then measured a #6 femur and placed my cutting guide and made my anterior posterior and chamfer cuts in 3deg of ER protecting the soft tissues at all times. I then made my box but removing the PCL. Once I was satisfied with my cuts I turned my attention to the tibia. I removed the meniscus medially and laterally and , using an external cutting guide, in line with the tibial crest and the third ray, I made my distal tibial cut in 0 deg slope of while protecting the posterior soft tissues at all times. An extension block was used to confirm appropriate amount of bony resection. I then sized a #5 tibia and once I was satisfied that there was complete tibial coverage I placed my trial and with the trial femur in place took the knee through range of motion. I lateralized the femur and externally rotated the tibia to accomodate for the severe lateral tracking of the patella. I was satisfied with the extension and flexion as well as the stability at 0, 30 and 90 degrees. I then turned my attention to the patella where I removed 1 cm from the undersurface of the patella and then trialed alateralized 29a patellar button. Again the knee was taken through range of motion I was satisfied with the tracking. I then returned to the femur and drilled my femoral lug holes and prepared the tibia. A femoral bone plug was placed and the knee was irrigated copiously. I then press fit the patella, tibia and femur in standard fashion. I trialed different inserts until I selected a #9 insert. The final insert was placed and a 3 minutes iodine soak with local TXA was performed. The knee was then closed with a running Quill suture, a 3 0 Vicryl and bruce on the skin. Patient was then placed in sterile dressing and brought to recovery room in stable condition there were no known complications.
--- NOTE | 2023-02-12 07:41 | PM.PNORT ---
Subjective Subjective Date of Service: 02/12/23 Interval history: POD1 s/p LTKA. Patient is resting in bed comfortably. No overnight events. Pain is managed. No addtional complaints. Physical Exam Vital Signs: Vital Signs: Last Vital Signs Temp 98.2 F 02/12/23 03:56 Pulse 94 02/12/23 03:56 Resp 19 02/12/23 03:56 BP 152/84 H 02/12/23 03:56 Pulse Ox 93 02/12/23 03:56 O2 Del Method Room Air 02/12/23 03:56 BMI result Body Mass Index 37.1 Const: General: cooperative, healthy appearing and no acute distress Resp: Effort & Inspection: normal respiratory effort and able to speak in complete sentences Cardio: Rate: regular rate Peripheral pulses: Peripheral pulses 2+ throughout GI: Palpation (GI): Soft to palpation Skin: Lesions: no lesions Rashes: no rashes Extrem: Other: Right knee Aquacel is c/d/i. Able to dorsi/plantar flex. NVI. Procedures Date of Service Date of Service: 02/12/23 Progress Note: A&P Assessment and plan (1) Status post total knee replacement, left: Status: Acute Plan Continue pain mgmnt Begin ASA for dvt ppx begin PT for LTKA Dispo planning-Pending PT eval, pain mgmnt Time Spent With Patient Time: Total time managing care of this patient today ____ minutes. Quality Stroke Does the patient have a stroke diagnosis?: No VTE Prior VTE?: No VTE Risk Level:: Medical - moderate - high VTE Device Contraindication: N/A - Device Ordered VTE Drug Contraindication: N/A - Med Ordered
[2023-02-12] MEDS: Sertraline HCL 50 MG TABLET PO (08:12)
[2023-02-12] MEDS: Aspirin 325 MG TABLET PO ×2 (08:12→20:48)
[2023-02-12] MEDS: Celecoxib 200 MG CAPSULE PO ×2 (08:12→20:48)
[2023-02-12] MEDS: oxyCODONE HCl ER 10 MG TAB.ER.12H PO ×2 (08:12→20:48)
[2023-02-12] MEDS: Docusate Sodium 100 MG CAPSULE PO ×2 (08:12→20:49)
[2023-02-12] MEDS: Insulin Lispro 100 UNIT/ML 3 ML VIAL SUBCUT ×4 (08:12→20:49)
[2023-02-12] MEDS: LORazepam 1 MG TABLET PO ×2 (08:13→20:48)
[2023-02-12] MEDS: Furosemide 20 MG TABLET PO (08:13)
--- NOTE | 2023-02-12 09:33 | MHC.CM.PN ---
Addendum entered by Fay Dimas RN 02/12/23 12:30: P.T. RECOMMENDS SNF. PATIENT AWARE AND UNDERSTANDS. REFERRALS PLACED [facility] FOLLOWING. Original Note: PATIENT LIVES ON HIS OWN. HE HAS A WALKER IN THE HOME [facility] PROVIDES PATIENT WITH A DAILY, 3- HOUR/DAY TRAINING COORDINATOR SERVICES. TRAINING COORDINATOR ASSISTS WITH ADLs, GROCERIES AND TRANSPORT NEEDS. PLAN IS HOME WITH [facility] SERVICES REFERRAL PLACED TO [facility] PER REQUEST. HCP IS TRAINING COORDINATOR AND PATIENT BELIEVES A COPY IS AT PCP OFFICE. IMM 02/12 IN CHART
--- NOTE | 2023-02-12 10:22 | HO.PM.IMPN ---
Subjective Subjective Date of Service: 02/12/23 Interval History: pain is control, no other acute med issues Physical Exam Vital Signs: Vital Signs: Last Vital Signs Temp 97.7 F 02/12/23 07:57 Pulse 87 02/12/23 07:57 Resp 18 02/12/23 07:57 BP 150/79 H 02/12/23 07:57 Pulse Ox 94 02/12/23 07:57 O2 Del Method Room Air 02/12/23 07:57 BMI result Body Mass Index 37.1 Const: Other: General: AO X 3, no acute distress Resp: CTA bilateral CVS: S1,S2,RRR GI: +BS, NT, no distention Skin: No rash, L knee dressing in place Neuro: motor grossly intact Psych: appropriate affect Objective Data Active Medications Acetaminophen (Acetaminophen 325 Mg Tablet) 650 mg PO Q6H PRN PRN Reason: Pain, Mild (Pain Scale 1-3) Last Admin: 02/11/23 15:30 Dose: 650 mg Documented By: RANJITH Aspirin (Aspirin 325 Mg Tablet) 325 mg PO BID [facility] Last Admin: 02/12/23 08:12 Dose: 325 mg Documented By: KYRIE Celecoxib (Celecoxib 200 Mg Capsule) 200 mg PO BID [facility] Last Admin: 02/12/23 08:12 Dose: 200 mg Documented By: KYRIE Cyclobenzaprine HCl (Cyclobenzaprine Hcl 10 Mg Tablet) 10 mg PO BEDTIME PRN PRN Reason: muscle spasm Last Admin: 02/11/23 15:30 Dose: 10 mg Documented By: RANJITH Dextrose (Dextrose 50 % 25 Gm/50 Ml Syringe) 25 gm IVPUSH Q15M PRN; Protocol PRN Reason: per Hypoglycemia Standing Ord. Docusate Sodium (Docusate Sodium 100 Mg Capsule) 100 mg PO BID [facility] Last Admin: 02/12/23 08:12 Dose: 100 mg Documented By: KYRIE Furosemide (Furosemide 20 Mg Tablet) 20 mg PO DAILY [facility]; Protocol Last Admin: 02/12/23 08:13 Dose: 20 mg Documented By: KYRIE Glucose (Glucose Gel 15 Gm Gel..Gram.) 15 gm PO Q15M PRN; Protocol PRN Reason: per Hypoglycemia Standing Ord. Hydromorphone HCl (Hydromorphone Hcl 0.5 Mg/0.5 Ml Syringe) 0.25 mg IVPUSH Q4H PRN; Protocol PRN Reason: Pain, Severe (Pain Scale 7-10) Last Admin: 02/12/23 03:47 Dose: 0.25 mg Documented By: MARILIN Lactated Ringer's (Lr) 1,000 mls @ 100 mls/hr IVCONT .Q10H [facility] Stop: 02/12/23 11:35 Last Admin: 02/12/23 00:22 Dose: 100 mls/hr Documented By: MARILIN Insulin Human Lispro (Insulin Lispro 100 Unit/Ml 3 Ml Vial) 0 unit SUBCUT QIDACHS [facility]; Protocol Last Admin: 02/12/23 08:12 Dose: 2 unit Documented By: KYRIE Latanoprost (Latanoprost 0.005 % Ophth Maria Eugenia 2.5 Ml Drops) 1 drop EYE-BOTH BEDTIME [facility] Last Admin: 02/11/23 20:55 Dose: 1 drop Documented By: MARILIN Lorazepam (Lorazepam 1 Mg Tablet) 1 mg PO BID [facility] Last Admin: 02/12/23 08:13 Dose: 1 mg Documented By: KYRIE Ondansetron HCl (Ondansetron Hcl 4 Mg/2 Ml Vial) 4 mg IVPUSH Q8H PRN PRN Reason: Nausea and Vomiting Oxycodone HCl (Oxycodone Hcl Immed Release 5 Mg Tablet) 5 mg PO Q4H PRN PRN Reason: Pain, Moderate(Pain Scale 4-6) Last Admin: 02/12/23 07:23 Dose: 5 mg Documented By: KYRIE Oxycodone HCl (Oxycodone Hcl Er 10 Mg Tab.Er.12h) 10 mg PO BID [facility] Last Admin: 02/12/23 08:12 Dose: 10 mg Documented By: KYRIE Sertraline HCl (Sertraline Hcl 50 Mg Tablet) 50 mg PO DAILY [facility] Last Admin: 02/12/23 08:12 Dose: 50 mg Documented By: KYRIE Sodium Chloride (0.9 % Sodium Chloride Flush 3 Ml Syringe) 3 ml IVFLUSH QSHIFT [facility] Last Admin: 02/12/23 08:13 Dose: Not Given Documented By: KYRIE Non-Admin Reason: IV Running Labs 02/12/23 05:19 02/12/23 05:19 Labs: Laboratory Results - last 24 hr 02/11/23 02/11/23 02/12/23 16:46 19:49 05:19 MCV 86.5 MCH 28.4 MCHC 32.8 RDW 16.3 H Plt Count 189 MPV 12.8 H Immature Gran % (Auto) 0.2 Neut % (Auto) 71.6 Lymph % (Auto) 15.3 L Bailey % (Auto) 11.2 H Eos % (Auto) 1.4 Baso % (Auto) 0.3 Lymph # (Auto) 1.5 Bailey # (Auto) 1.1 Eos # (Auto) 0.1 Baso # (Auto) 0.0 Abs Immat Gran (auto) 0.02 Absolute Neuts (auto) 7.2 Absolute Nucleated RBC 0.000 Nucleated RBC % (auto) 0.0 Anion Gap Estim Creat Clear Calc Estimated GFR POC Glucose 192 H 227 H Fasting Glucose Calcium 02/12/23 02/12/23 05:19 07:30 MCV MCH MCHC RDW Plt Count MPV Immature Gran % (Auto) Neut % (Auto) Lymph % (Auto) Bailey % (Auto) Eos % (Auto) Baso % (Auto) Lymph # (Auto) Bailey # (Auto) Eos # (Auto) Baso # (Auto) Abs Immat Gran (auto) Absolute Neuts (auto) Absolute Nucleated RBC Nucleated RBC % (auto) Anion Gap 13 Estim Creat Clear Calc 68.6 Estimated GFR 57 POC Glucose 199 H Fasting Glucose 198 H Calcium 9.1 D Assessment and Plan (1) Hypertension: Status: Acute Plan 67 male with diabetes, HTN, HLD who under L knee elective arthroplasty been seen medical consult for managment of comorbidities of HTN, diabetes and HLD, surgery went well, he's having some pain in the knee, no other acute issues at this time s/p L TKR, management? per surgery dibates, can resume some outpatient (metformin and Tresiba), hold sitagliptin and jardiance outpatient meds SSI,check POCs HTN restart hydralazine, Lisinopril, hold benazepril HLD statin and fenofibrate Time Spent With Patient Time: Total time managing care of this patient today ____ minutes. Quality Stroke Does the patient have a stroke diagnosis?: No VTE Prior VTE?: No VTE Risk Level:: Medical - moderate - high VTE Device Contraindication: N/A - Device Ordered VTE Drug Contraindication: N/A - Med Ordered
[2023-02-12 11:26] LABS: Glucose, Whole Blood 195 mg/dL (60-115)
--- NOTE | 2023-02-12 13:49 | HO.POSTANES ---
Post Anesthesia Evaluation Post Anesthesia Evaluation Date of Service: 02/12/23 Vital Signs: Vital Signs Temp Pulse Resp BP Pulse Ox O2 Del Method 02/12/23 10:38 108 H 135/75 98 02/12/23 07:57 97.7 F 87 18 150/79 H 94 Room Air 02/12/23 03:56 98.2 F 94 19 152/84 H 93 Room Air Anesthesia: Spinal and Nerve Block Mental Status: Awake Pain Control: Satisfactory Nausea/Vomiting: None Hydration: Adequate Anesthesia-Related Issues: No Anes. Related Issues
--- NOTE | 2023-02-12 14:49 | MHC.CM.PN ---
T/W MET WITH PATIENT TO INFORM HIM THAT [facility] IS OFFERING A BED. PATIENT NOW STATES NO, I AM GOING HOME PATIENT REMINDED THAT HE IS HAVING DIFFICULTY STANDING. HE REPLIES I'LL BE FINE PATIENT ALSO UNWILLING TO COMPLETE A HCP HERE FOR SNF PATIENT AGREES TO REVISIT THE ISSUE TOMORROW
[2023-02-12] MEDS: hydrALAZINE HCl 10 MG TABLET PO ×2 (14:54→20:49)
[2023-02-12 16:17] LABS: Glucose, Whole Blood 226 mg/dL (60-115)
[2023-02-12 20:26] LABS: Glucose, Whole Blood 202 mg/dL (60-115)
[2023-02-12] MEDS: metFORMIN HCl ER 500 MG TAB.ER.24H PO (20:48)
[2023-02-12] MEDS: Insulin Glargine,Hum.rec.anlog 100 UNIT/ML 10 ML VIAL 39 UNIT SUBCUT (20:51)
[2023-02-12] MEDS: Latanoprost 0.005 % Ophth Sol 2.5 ML DROPS 1 DROP EYE-BOTH (20:53)
[2023-02-13] MEDS: oxyCODONE HCl Immed Release 5 MG TABLET PO ×2 (00:01→17:03)
[2023-02-13 04:00] VITALS: BP 141/76; PULSE 95; RESP 16; TEMP 36.5; O2SAT 93
[2023-02-13 06:43] LABS: MANUAL DIFF FLAG NO
[2023-02-13 06:49] LABS: Basophils Percent Auto 0.2 % (0-2); Eosinophils Absolute Auto 0.3 X10*3/uL (0.0-0.4); Eosinophils Percent Auto 2.7 % (0-4); Hematocrit 39.2 % (42.0-52.0); Hemoglobin 12.7 g/dl (14.0-18.0); Imm Gran Abs Auto 0.05 X10*3/uL (0.00-0.03); Imm Gran Pct Auto 0.5 % (0.0-0.4); Lymphocytes Absolute Auto 1.5 X10*3/uL (1.2-4.9); Lymphocytes Percent Auto 14.9 % (20-40); Mean Corpuscular HGB Conc 32.4 g/dl (31.0-36.0); Mean Corpuscular Hemoglobin 27.7 pg (27.0-33.0); Mean Corpuscular Volume 85.6 fL (80.0-98.0); Mean Platelet Volume 12.6 fL (9.4-12.4); Monocytes Absolute Auto 1.2 X10*3/uL (0.1-1.2); Monocytes Percent Auto 11.7 % (2-11); Neutrophils Absolute Auto 6.9 x10*3/uL (2.0-8.3); Platelet Count 176 X10*3/uL (160-400); Red Blood Count 4.58 X10*6/uL (4.60-5.80); Red Cell Distribution Width 16.5 % (11.0-16.0); White Blood Count 9.9 X10*3/uL (4.8-10.8)
[2023-02-13 07:03] LABS: Anion Gap 11 (12-20); Blood Urea Nitrogen 21 mg/dL (9-16); Calcium 9.3 mg/dL (8.4-10.2); Carbon Dioxide 23 mmol/L (22-29); Chloride 107 mmol/L (96-108); Estimated Glomerular Filt Rate 53; Glucose Fasting 200 mg/dL (60-99); Potassium 4.3 mmol/L (3.3-5.1); Sodium 137 mmol/L (135-145)
[2023-02-13 07:34] LABS: Glucose, Whole Blood 178 mg/dL (60-115)
[2023-02-13 07:48] VITALS: BP 145/79; PULSE 94; RESP 18; TEMP 36.6; O2SAT 92
[2023-02-13] MEDS: Atorvastatin Calcium 20 MG TABLET PO (07:58)
[2023-02-13] MEDS: Furosemide 20 MG TABLET PO (07:58)
[2023-02-13] MEDS: Aspirin 325 MG TABLET PO (08:05)
[2023-02-13] MEDS: LORazepam 1 MG TABLET PO (08:05)
[2023-02-13] MEDS: oxyCODONE HCl ER 10 MG TAB.ER.12H PO (08:05)
[2023-02-13] MEDS: metFORMIN HCl ER 500 MG TAB.ER.24H PO (08:05)
[2023-02-13] MEDS: lisinopriL 20 MG TABLET PO (08:05)
[2023-02-13] MEDS: Celecoxib 200 MG CAPSULE PO (08:05)
[2023-02-13] MEDS: Docusate Sodium 100 MG CAPSULE PO (08:06)
[2023-02-13] MEDS: hydrALAZINE HCl 10 MG TABLET PO ×2 (08:06→16:38)
[2023-02-13] MEDS: Sertraline HCL 50 MG TABLET PO (08:06)
[2023-02-13] MEDS: Insulin Lispro 100 UNIT/ML 3 ML VIAL SUBCUT ×3 (08:06→17:03)
[2023-02-13] MEDS: 0.9 % Sodium Chloride Flush 3 ML SYRINGE IVFLUSH ×2 (08:07→15:32)
--- NOTE | 2023-02-13 08:36 | PM.PNORT ---
Subjective Subjective Date of Service: 02/13/23 Principal diagnosis: POD # 2 s/p lk TKA Interval history: AFVSS c/o pain Physical Exam Vital Signs: Vital Signs: Last Vital Signs Temp 97.9 F 02/13/23 07:48 Pulse 94 02/13/23 07:48 Resp 18 02/13/23 07:48 BP 145/79 H 02/13/23 07:48 Pulse Ox 92 02/13/23 07:48 O2 Del Method Room Air 02/13/23 07:48 BMI result Body Mass Index 37.1 Extrem: Other: dressing c/d/i toes wwp SILT Firing ehl/ta/gc 10 flexion contracture Procedures Date of Service Date of Service: 02/13/23 Progress Note: A&P Assessment and plan (1) Status post total knee replacement, left: Status: Acute Assessment and Plan: POD#2 doing ok but pain preventing extension PT Dispo planning PO pain control lovenox Time Spent With Patient Time: Total time managing care of this patient today ____ minutes. Quality Stroke Does the patient have a stroke diagnosis?: No VTE Prior VTE?: No VTE Risk Level:: Medical - moderate - high VTE Device Contraindication: N/A - Device Ordered VTE Drug Contraindication: N/A - Med Ordered
--- NOTE | 2023-02-13 08:40 | MHC.CM.PN ---
Addendum entered by Kathleen Fagan 02/13/23 15:51: AUTH OBTAINED AND BLS TRANSPORT BOOKED FOR 1600 HOURS [employer] Original Note: CM MET WITH PT TO DISCUSS DC PLANS PT WAS SEEN BY PHYSICAL THERAPY THIS MORNING AND NOW ACCEPTS HOME IS NOT A SAFE OPTION PT AGREEABLE TO STR AT [facility] HE COMPLETED A HCP FOR THE PURPOSE OF SNF ACCEPTANCE, HOWEVER ASKED CM THAT IT NOT BE KEPT ON FILE HE DOES NOT PLAN TO KEEP IT PT IS AWARE [facility] WILL SUBMIT FOR AUTH TODAY
[2023-02-13 11:32] LABS: Glucose, Whole Blood 274 mg/dL (60-115)
[2023-02-13] MEDS: Enoxaparin Sodium 40 MG/0.4 ML SYRINGE SUBCUT (12:08)
--- NOTE | 2023-02-13 14:00 | PM.DS ---
DS: Providers Provider Date of Service: 02/13/23 Primary care physician: Tram Álvarez MD Consults: 02/11/23 12:51 Consult to Hospitalist Routine Comment: Consulting Provider: Hospitalist Reason For Exam: diabetes DS: Diagnosis Discharge Diagnosis (1) Status post total knee replacement, left: Status: Acute DS: Summary Hospital Course Hospital Course: The patient underwent a successful left total knee arthroplasty, they were transferred to PACU and then to the floor to recover. During their stay, their vitals were stable, afebrile at 97.9. Labs were unremarkable, H/H 12.7/39.2. POD 1 they were started on Aspirin 325mg po bid and then transitioned to Lovenox injections POD2 for DVT ppx, they also received Physical Therapy services twice a day. Prior to discharge, their dressing was changed, incision clean dry and intact, new Aquacel dressing applied and the plan was to be discharged home with VNA services. Time Spent with Patient Time attestation: Total time managing care of this patient today ____ minutes. Discharge coordination time: Less than 30 minutes Quality: Safe Use of Opioids Does Pt have an Active Cancer Diagnosis on the Problem List?: No Quality: Stroke Does the patient have a stroke diagnosis?: No Physical Exam Vital Signs: Vital Signs: Last Vital Signs Temp 97.9 F 02/13/23 07:48 Pulse 94 02/13/23 07:48 Resp 18 02/13/23 07:48 BP 145/79 H 02/13/23 07:48 Pulse Ox 92 02/13/23 07:48 O2 Del Method Room Air 02/13/23 07:48 BMI result Body Mass Index 37.1 Extrem: Other: dressing c/d/i toes wwp SILT Firing ehl/ta/gc 10 flexion contracture DS: Data Data Completed and Pending Pending studies at discharge: Pending at discharge 02/11/23 11:11 Surgical [PTH] Routine Labs on day of discharge: Laboratory Results - last 24 hr 02/12/23 02/12/23 02/13/23 16:12 20:13 06:01 WBC 9.9 RBC 4.58 L Hgb 12.7 L Hct 39.2 L MCV 85.6 MCH 27.7 MCHC 32.4 RDW 16.5 H Plt Count 176 MPV 12.6 H Immature Gran % (Auto) 0.5 H Neut % (Auto) 70.0 Lymph % (Auto) 14.9 L Park % (Auto) 11.7 H Eos % (Auto) 2.7 Baso % (Auto) 0.2 Lymph # (Auto) 1.5 Park # (Auto) 1.2 Eos # (Auto) 0.3 Baso # (Auto) 0.0 Abs Immat Gran (auto) 0.05 H Absolute Neuts (auto) 6.9 Absolute Nucleated RBC 0.000 Nucleated RBC % (auto) 0.0 Sodium Potassium Chloride Carbon Dioxide Anion Gap BUN Creatinine Estim Creat Clear Calc Estimated GFR POC Glucose 226 H 202 H Fasting Glucose Calcium 02/13/23 02/13/23 02/13/23 06:01 07:31 11:28 WBC RBC Hgb Hct MCV MCH MCHC RDW Plt Count MPV Immature Gran % (Auto) Neut % (Auto) Lymph % (Auto) Park % (Auto) Eos % (Auto) Baso % (Auto) Lymph # (Auto) Park # (Auto) Eos # (Auto) Baso # (Auto) Abs Immat Gran (auto) Absolute Neuts (auto) Absolute Nucleated RBC Nucleated RBC % (auto) Sodium 137 Potassium 4.3 Chloride 107 Carbon Dioxide 23 Anion Gap 11 L BUN 21 H Creatinine 1.35 Estim Creat Clear Calc 64.0 Estimated GFR 53 POC Glucose 178 H 274 H Fasting Glucose 200 H Calcium 9.3 Discharge Plan Discharge Referrals: Tram Royal MD [Primary Care Provider] - 1 Week Discharge Medications: New acetaminophen 325 mg Tablet 650 mg PO Q6H PRN (Reason: Pain, Mild (Pain Scale 1-3)) 30 Days Qty: 240 0RF enoxaparin 40 mg/0.4 mL Syringe 40 mg subcut Q24H 42 Days Qty: 16.8 0RF celecoxib 200 mg Capsule 200 mg PO BID 30 Days Qty: 60 0RF docusate sodium 100 mg Capsule 100 mg PO BID 30 Days Qty: 60 0RF oxycodone 5 mg tablet 5 mg PO Q4H PRN (Reason: pain (scale score 4-6)) 7 Days Qty: 42 0RF Rx Instructions: Partial Fill upon patient request. Continued cholecalciferol (vitamin D3) 25 mcg (1,000 unit) tablet 25 mcg PO DAILY Qty: 30 8RF Rx Instructions: PATIENT IS NON-ADHERENT. DOES NOT HAVE MONEY TO BUY SOME MEDICATION (DME) Ultra-Light Rollator Misc See Rx Instructions .ROUTE .MEDSUPPLY Qty: 1 0RF Rx Instructions: with seat (DME) walker Misc See Rx Instructions .ROUTE .MEDSUPPLY Qty: 1 0RF Rx Instructions: As directed Tresiba FlexTouch U-200 200 unit/mL (3 mL) insulin pen 55 unit subcut BEDTIME 90 Days Qty: 24.75 4RF (DME) pen needle, diabetic 31 gauge x 5/16 needle See Rx Instructions subcut .MEDSUPPLY Qty: 200 4RF Rx Instructions: five times a day (DME) FreeStyle Tirso 2 Sensor Kit See Rx Instructions .Route Qty: 1 0RF Rx Instructions: As directed Jardiance 25 mg tablet 25 mg PO DAILY 90 Days Qty: 90 1RF atorvastatin 20 mg tablet 20 mg PO DAILY 30 Days Qty: 30 4RF icosapent ethyl [Vascepa] 1 gram capsule 2 g PO BID 30 Days Qty: 120 4RF benazepril 40 mg tablet 40 mg PO DAILY Qty: 30 1RF Hold Instructions: Resume on 11/16/20. Stop taking until repeat lab work is checked. lisinopril 20 mg tablet 20 mg PO DAILY 90 Days Qty: 90 1RF cyclobenzaprine 10 mg tablet 10 mg PO BEDTIME PRN (Reason: muscle spasm) 90 Days Qty: 90 1RF hydralazine 10 mg tablet 10 mg PO TID 90 Days Qty: 270 2RF furosemide 20 mg tablet 20 mg PO DAILY 90 Days Qty: 90 1RF fenofibrate nanocrystallized 145 mg tablet 145 mg PO DAILY 90 Days Qty: 90 1RF latanoprost 0.005 % drops 1 drp ophthalmic (eye) BEDTIME Rx Instructions: 1 drop into both eyes metformin 500 mg tablet extended release 24 hr 500 mg PO BID Trulicity 1.5 mg/0.5 mL pen injector 1.5 mg subcut POSADAS@0900 (DME) blood pressure monitor Kit See Rx Instructions .Route Qty: 1 0RF Rx Instructions: As directed lidocaine 5 % ointment 1 appl topical BEDTIME PRN (Reason: pain) 14 Days Qty: 30 1RF (DME) chair lift See Rx Instructions .Route .MEDSUPPLY Qty: 1 0RF Rx Instructions: As directed lorazepam 1 mg tablet 1 mg PO BID Rx Instructions: PATIENT IS NON-ADHERENT. DOES NOT HAVE MONEY TO BUY SOME MEDICATION (DME) Anselmo Chahal 14 Day [place] Misc See Rx Instructions .ROUTE .MEDSUPPLY Qty: 1 0RF Rx Instructions: As directed Discontinued aspirin 81 mg tablet,delayed release (DR/EC) 81 mg PO DAILY Qty: 30 11RF oxycodone 5 mg tablet 5 mg PO TID PRN (Reason: pain) 30 Days Qty: 90 0RF No Action sennosides [senna] 8.6 mg tablet 8.6 mg PO BEDTIME PRN (Reason: constipation) 90 Days Qty: 90 0RF Januvia 25 mg tablet 25 mg PO DAILY Discharge Orders: Discharge Order (Routine); Ordered 02/13/23 Ordered By: Juani Campos Diet: Advance to usual diet Activity on Discharge: Use cane or walker Activity Restrictions/Additional Instructions: Physical Therapy for ROM 0-120, quad strength, gait training. Use walker for ambulation Limit stair climbing, No shower, No tub bath, No driving Continue anticoagulant Keep Aquacel dressing clean, dry and intact. Follow up with orthopedics in 2 weeks
[2023-02-13] MEDS: HYDROmorphone HCl 0.5 MG/0.5 ML SYRINGE 0.25 MG IVPUSH (15:31)
[2023-02-13 16:00] VITALS: BP 140/70; PULSE 99; RESP 18; TEMP 36.4; O2SAT 94
[2023-02-13 16:36] LABS: Glucose, Whole Blood 171 mg/dL (60-115)
== END 2023-02-13 17:32 ==
LOC: HO.S3 02-12 11:20 → HO.SSS 02-12 14:21 → HO.S3 02-12 14:22
PROVIDERS: Physician Assistant; PCP Internal Medicine; Visit Provider Orthopaedic Surgery
PROC: (CPT 27447; principal; 2023-02-11 09:40)
DX: M17.12 Unilateral primary osteoarthritis, left knee (principal); M25.562 Pain in left knee; I10 Essential (primary) hypertension; E78.2 Mixed hyperlipidemia; E11.42 Type 2 diabetes mellitus with diabetic polyneuropathy; E11.22 Type 2 diabetes mellitus with diabetic chronic kidney disease; I12.9 Hypertensive chronic kidney disease with stage 1 through stage 4 chronic kidney disease, or unspecified chronic kidney disease; N18.30 Chronic kidney disease, stage 3 unspecified; Z79.4 Long term (current) use of insulin; F33.0 Major depressive disorder, recurrent, mild; E66.09 Other obesity due to excess calories; Z68.35 Body mass index [BMI] 35.0-35.9, adult; Z79.899 Other long term (current) drug therapy; Z88.0 Allergy status to penicillin; Z98.890 Other specified postprocedural states; Z87.891 Personal history of nicotine dependence
CPT/HCPCS: 27447; 36415; 73560; 80048; 82947; 85014; 85018; 85025; 86850; 86900; 86901; 87640; 87641; 88305; 88311; 97110; 97161; 97530; C1776; J0690; J1170; J1650; J2795

== ENCOUNTER 2023-02-27 07:09 | Outpatient (RCR) | payer OTHER, MEDICAID, SELFPAY | END 2023-05-02 09:18 | disposition home or self-care (01) | LOC: HO.PT 07:09 | PROVIDERS: PCP Internal Medicine; Visit Provider Physician Assistant | DX: Z96.652 Presence of left artificial knee joint (principal) ==

== ENCOUNTER 2023-02-27 12:41 | Outpatient (AMB) | payer OTHER, MEDICAID, SELFPAY ==
--- NOTE | 2023-02-27 12:49 | MHC.OFFVIS ---
Intake Vital Signs 02/27/23 12:54 Height 5 ft 6 in Weight 200 lb BMI 32.3 Intake Visit Reasons: PO-LT TKA 02/11/23 NE Intake Note: Carlos is a 67 year old male who presents today for a post operative appointment left TKA on 02/11/23 NE. Patient reports some pain and discomfort near the site. Denies numbness and tingling. Allergies Penicillins [PENICILLINS] Allergy (Severe, Verified 02/27/23 12:53) RASH jay pepper Allergy (Intermediate, Verified 02/27/23 12:53) Rash pepper (genus Capsicum) Adverse Reaction (Intermediate, Verified 02/27/23 12:53) rashes HPI PO-LT TKA 02/11/23 NE HPI Details 67-year-old male who presents in the office today with family 2 weeks status post left total knee arthroplasty, which was performed on 02/11/[address] Apple. The patient reports some pain and discomfort near the incision site. He denies numbness and tingling. PFSH Medical History DAVINA (acute kidney injury) Arthritis CKD (chronic kidney disease), stage III Diabetic polyneuropathy associated with type 2 diabetes mellitus Hypertension Hypertriglyceridemia Knee osteoarthritis Left knee pain Low back pain Lumbar spondylosis Lumbar stenosis Mild recurrent major depression Mixed hyperlipidemia Multiple falls Obesity due to excess calories Proteinuria Right knee pain Right shoulder pain Syncope Type 2 diabetes mellitus with other diabetic kidney complication Surgical History History of back surgery History of lumbar surgery Hx of cataract surgery Hx of eye surgery S/P evacuation of hematoma Family History Father Medical history unknown Mother No problems noted. 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[employer]) Alcohol intake: never Patient Tobacco Use Status: Former Tobacco user Quit Date: 2021 Tobacco use type: Cigarette Years Smoked: 25 e-Cigarette/Vaping Use: Never Used Second Hand Smoke Exposure: No service: Yes Current occupational status: disabled Cognitive needs: Yes (walker) Hearing needs: No Vision needs: Yes (reading glasses) Review of Systems Const All systems reviewed & are unremarkable except as noted in HPI and below Physical Exam Vital Signs: BMI result Body Mass Index 32.3 Const General: cooperative, healthy appearing and no acute distress Resp Effort & Inspection: normal respiratory effort and able to speak in complete sentences Cardio Rate: regular rate Peripheral pulses: Peripheral pulses 2+ throughout GI Palpation (GI): Soft to palpation Skin Lesions: no lesions Rashes: no rashes Extrem Other: Left knee: Incision site is clean, dry, and intact. No surrounding erythema or drainage. No signs of infection. Minnie intact. Active ROM is 30 degrees. Passive ROM from 0-100 degrees. Poor quad function. NVI. Assessment & Plan Assessment & Plan (1) Status post total knee replacement, left: Code(s): Z96.652 - Presence of left artificial knee joint Plan Mr. Cabrera is a 67-year-old male who presents in the office today with family 2 weeks status post left total knee arthroplasty, which was performed on 02/11/[address] Apple. The patient reports some pain and discomfort near the incision site. He denies numbness and tingling. Dr. Apple was available to see the patinet with me in the office today. [place] were removed and steri-stripes were applied while in the office today. He will continue to work with home physical therapy. His goal is to restore quad function. Follow up will be in 2 weeks for a wound check with Dr. Apple for a ROM check, or sooner if needed. Patient Instructions: Scribed for Juani Campos PA-C by Akanksha Wooten certified ophthalmic medical technician, on 02/27/2023 at 12:42 pm, EST. Coding Level of Care Code Global (22900) Diagnoses Status post total knee replacement, left Z96.652
[2023-02-27 12:54] VITALS: BMI 32.3
== END 2023-02-27 13:42 | disposition home or self-care (01) ==
PROVIDERS: Visit Provider Physician Assistant
DX: Z96.652 Presence of left artificial knee joint (principal)
CPT/HCPCS: 99024

== ENCOUNTER → 2023-02-27 12:41 | Outpatient (BNVA) | payer OTHER, MEDICAID, SELFPAY | PROVIDERS: Visit Provider Physician Assistant ==

== ENCOUNTER 2023-03-13 13:15 | Outpatient (AMB) | payer OTHER, MEDICAID, SELFPAY ==
--- NOTE | 2023-03-13 13:30 | A.OFFVIS_ITS ---
Intake Vital Signs 03/13/23 13:31 Height 5 ft 6 in Weight 200 lb BMI 32.3 Intake Visit Reasons: s/p LT TKA 02/11/23 NE increased redness, edema Intake Note: Carlos is a 67 year old male who presents today for a post operative appointment left TKA on 02/11/23 NE. Patient reports pain and discomfort near the site. States he is working with his therapist to improve ROM. States his therapist has concerns due to redness and swelling. Allergies Penicillins [PENICILLINS] Allergy (Severe, Verified 03/13/23 13:32) RASH jay pepper Allergy (Intermediate, Verified 03/13/23 13:32) Rash pepper (genus Capsicum) Adverse Reaction (Intermediate, Verified 03/13/23 13:32) rashes HPI s/p LT TKA 02/11/23 NE increased redness, edema HPI Details Carlos is a 67 year old Diabetic man ~1 month S/P left TKA. He says he has some pain & discomfort about his incision site. He says he has been working with home therapy on his ROM, but his therapist is concerned about his increased redness & swelling. He denies any fevers or chills PFSH Medical History DAVINA (acute kidney injury) Arthritis CKD (chronic kidney disease), stage III Diabetic polyneuropathy associated with type 2 diabetes mellitus Hypertension Hypertriglyceridemia Knee osteoarthritis Left knee pain Low back pain Lumbar spondylosis Lumbar stenosis Mild recurrent major depression Mixed hyperlipidemia Multiple falls Obesity due to excess calories Proteinuria Right knee pain Right shoulder pain Syncope Type 2 diabetes mellitus with other diabetic kidney complication Surgical History History of back surgery History of lumbar surgery Hx of cataract surgery Hx of eye surgery S/P evacuation of hematoma Family History Father Medical history unknown Mother No problems noted. 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) Alcohol intake: never Patient Tobacco Use Status: Former Tobacco user Quit Date: 2021 Tobacco use type: Cigarette Years Smoked: 25 e-Cigarette/Vaping Use: Never Used Second Hand Smoke Exposure: No service: Yes Current occupational status: disabled Cognitive needs: Yes (walker) Hearing needs: No Vision needs: Yes (reading glasses) Review of Systems Const All systems reviewed & are unremarkable except as noted in HPI and below Physical Exam Vital Signs: BMI result Body Mass Index 32.3 Const General: no acute distress, alert and awake Orientation/consciousness: patient oriented x3 HEENT Head: Yes normocephalic and Yes atraumatic Eyes EOM: EOMs intact bilaterally Resp Effort & Inspection: normal respiratory effort and able to speak in complete sentences Cardio Jugular venous distension: no JVD Skin General skin exam: turgor normal Rashes: no rashes Neuro General: patient oriented x3 Extrem Other: Left Knee: Redness & scabbing of incision No evidence of infection 0-100 degrees ROM No effusion Psych Appearance: grossly normal Affect: normal affect Attitude: cooperative Assessment & Plan Assessment & Plan (1) Status post total knee replacement, left: Code(s): Z96.652 - Presence of left artificial knee joint Plan: This is a 67 year old man S/P left TKA, DOS: 02/11/23. He is doing well, still has some pain and erythema about the incision site, but he denies any symptoms of infection. He has bee working with at-home therapy on his ROM. I recommend he continue with PT for stretching & strengthening. He requested a different model of assistive walker, for one with a seat. He will follow up in 6 weeks assuming the incision does not become redder, look infected or casue more pain.. (2) Diabetes mellitus: Code(s): E11.9 - Type 2 diabetes mellitus without complications Plan Scribed for Wesley Apple MD by John Archer, medical scheduler, on 03/13/23 at 2:00 PM, EST. Coding Level of Care Code Global (02116) Diagnoses Status post total knee replacement, left Z96.652 Diabetes mellitus E11.9
[2023-03-13 13:31] VITALS: BMI 32.3
== END 2023-03-13 14:11 | disposition home or self-care (01) ==
PROVIDERS: PCP Internal Medicine; Visit Provider Orthopaedic Surgery
DX: Z96.652 Presence of left artificial knee joint (principal); E11.9 Type 2 diabetes mellitus without complications
CPT/HCPCS: 99024

== ENCOUNTER → 2023-03-13 13:15 | Outpatient (BNVA) | payer OTHER, MEDICAID, SELFPAY | PROVIDERS: PCP Internal Medicine; Visit Provider Orthopaedic Surgery ==

== ENCOUNTER 2023-04-07 11:52 | Outpatient (AMB) | payer OTHER, SELFPAY ==
--- NOTE | 2023-04-07 12:08 | A.OFFPC_ITS ---
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 Required: No Accompanied by: Self / Same As Patient Allergies Penicillins [PENICILLINS] Allergy (Severe, Verified 04/07/23 12:32) RASH jay pepper Allergy (Intermediate, Verified 04/07/23 12:32) Rash pepper (genus Capsicum) Adverse Reaction (Intermediate, Verified 04/07/23 12:32) rashes Medication List - Last Reconciled 04/07/23 by Tram Álvarez MD acetaminophen 650 mg (2 x 325 mg) PO Q6H PRN 30 days aspirin (Adult Low Dose Aspirin) 81 mg PO DAILY atorvastatin 20 mg PO DAILY 30 days benazepril 40 mg PO DAILY blood pressure monitor As directed celecoxib 200 mg PO BID 30 days [chair lift As directed] cyclobenzaprine 10 mg PO BEDTIME PRN 90 days docusate sodium 100 mg PO BID 30 days dulaglutide (Trulicity) 1.5 mg subcut POSADAS@0900 enoxaparin 40 mg (0.4 mL) subcut Q24H 42 days fenofibrate nanocrystallized 145 mg PO DAILY 90 days flash glucose scanning reader (K9 DesignStyle Tirso 14 Day [place]) As directed flash glucose sensor (FreeStyle Tirso 2 Sensor kit) As directed furosemide 20 mg PO DAILY 90 days hydralazine 10 mg PO TID 90 days icosapent ethyl (Vascepa) 2 grams (2 x 1 gram) PO BID 30 days insulin degludec (Tresiba FlexTouch U-200 insulin) 55 units (0.275 mL) subcut BEDTIME 90 days latanoprost 0.005% 1 drp ophthalmic (eye) BEDTIME lisinopril 20 mg PO DAILY 90 days lorazepam 1 mg PO BID metformin ER 500 mg PO BID oxycodone 5 mg PO Q4H PRN 7 days pen needle, diabetic five times a day sennosides (senna) 8.6 mg PO BEDTIME PRN 90 days sitagliptin phosphate (Januvia) 25 mg PO DAILY walker As directed walker (Ultra-Light Rollator misc) with seat Tobacco use date assessed: 01/31/23 Fall risk assessment: No Falls in past year Last assessed Fall Risk: 04/07/23 Dental Screening Dental Screen Date: 04/07/23 Did you have a dental visit in the last 12 months?: No Did you have a dental problem in the last 6 months where you did not have access to dental care?: No Was dental information given to patient?: Patient has dentist HPI HPI Comments History of Present Illness Details This is a 67-year-old male with diabetes mellitus type 2 on long-term current use of insulin, hypertension, mixed hyperlipidemia new and mild major depression that comes today complaining of low back pain radiating to the left leg that has present for few weeks. Had recent left knee replacement and walks with a walker. A1c within goal. Blood pressure elevated and will be recheck in 3 weeks. Lipid panel was order and his LDL goal should be less than 70. Has a mild anemia that will be repeated and denies any active bleeding. Depression is in remission. [facility] Medical History Knee osteoarthritis Mild recurrent major depression Mixed hyperlipidemia Right shoulder pain Right knee pain Left knee pain CKD (chronic kidney disease), stage III Low back pain Multiple falls Syncope DAVINA (acute kidney injury) Obesity due to excess calories Lumbar spondylosis Proteinuria Arthritis Hypertriglyceridemia Hypertension Diabetic polyneuropathy associated with type 2 diabetes mellitus Type 2 diabetes mellitus with other diabetic kidney complication Lumbar stenosis Surgical History History of total left knee replacement (TKR) S/P evacuation of hematoma Hx of cataract surgery History of lumbar surgery Hx of eye surgery History of back surgery Family History Father Medical history unknown Mother No problems noted. 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 Jorge Hopson, Stacey Meza, Mario Garcia and colleagues, with an educational ahsan from [employer]. Review of Systems Const All systems reviewed & are unremarkable except as noted in HPI and below Eyes Reports no additional complaints, Denies change in vision and Denies other visual disturbances Card Denies chest pain at rest, Denies chest pain with activity, Denies edema, Denies irregular heart rhythm, Denies claudication, Denies dyspnea, Denies dyspnea on exertion, Denies orthopnea, Denies paroxysmal nocturnal dyspnea and Denies slow heart rate Resp Denies cough, Denies dyspnea and Denies dyspnea on exertion GI Denies abdominal pain, Denies change in bowel habits, Denies excessive flatus, Denies nausea and Denies vomiting Denies urinary hesitancy, Denies urinary incontinence and Denies urinary urgency Musc Reports abnormal gait, Denies atrophy, Denies deformity and Denies limited range of motion Skin/Breast Denies bleeding lesions, Denies changing lesions and Denies rash Neuro Reports abnormal gait and Denies lack of coordination Physical exam (Primary Care) Vital Signs: Last Vital Signs BP 152/80 H 04/07/23 12:22 BMI result Body Mass Index 37.9 Tobacco/Smoking Status: Tobacco use Status Tobacco use date assessed 01/31/23 04/07/23 12:09 Patient Tobacco Use Status Former Tobacco user 04/07/23 12:09 Tobacco use type Cigarette 04/07/23 12:09 e-Cigarette/Vaping Use Never Used 04/07/23 12:09 Thrive Assessment: Date of Thrive Assessment Date Thrive assessed 09/11/22 04/07/23 12:09 Const Limitations: ambulation with walker Eyes General: appearance normal, both eyes and all related structures Eyelids: Yes eyelids normal Conjunctivae: conjunctivae normal Neck Neck: Yes normal visual inspection and Yes supple Resp Effort & Inspection: normal respiratory effort Auscultation: clear to auscultation bilaterally Cardio Jugular venous distension: no JVD Rate: regular rate Rhythm: regular rhythm Heart sounds: S1 normal heart sound present and S2 normal heart sound present Extrem General: Yes full ROM Office Procedures Flu Questionnaire Does the patient have a severe egg allergy?: No Does the patient have severe life threatening allergies?: No Does the patient have a fever or illness today?: No Has the patient ever had Guillain-Aneta Syndrome?: No Has the patient ever had any past reaction to a flu shot?: No Results AMB Hemoglobin A1c AMB Hemoglobin A1c 6.2 % Last Edit by CARLOS A Braswell on 04/07/23 12:3 2 Immunizations flu vacc [id number] 6mos up(PF) 60 mcg(15 mcgx4)/0.5 mL IM syringe Performing Provider: Tram Álvarez MD [facility] Administered by: CARLOS A Braswell on 04/07/23 12:47 Dose Route Admin Location Dispensed Lot Number Expiration Date NDC Treating Machine Operator 0.5 mL IM Right Deltoid 0.5 mL [id number] 01/04/24 [id number] [employer] VIS Given Date VIS Provided VIS Publication Date 04/07/23 Single Vaccine 21 Eligibility Eligibility Date Funding Source Not [facility] Eligible 04/07/23 Private Results Reviewed Results Reviewed: Laboratory Last Values Hgb A1c (Clinic) 6.2 % (4.0-6.0) H 04/07/23 12:26 Assessment and Plan Assessment & Plan (1) Diabetes mellitus: Code(s): E11.9 - Type 2 diabetes mellitus without complications Plan: Continue insulin, Trulicity and metformin. A1c goal is equal or less than 7%. (2) Mild recurrent major depression: Code(s): F33.0 - Major depressive disorder, recurrent, mild Plan: In remission. (3) Mixed hyperlipidemia: Code(s): E78.2 - Mixed hyperlipidemia Plan: Continue statins and fibrates. LDL goal is less than 70. (4) Essential hypertension: Code(s): I10 - Essential (primary) hypertension Plan: Continue benazepril and hydralazine. Blood pressure goal is equal or less than 130/80. Recheck blood pressure with nurse navigator in 3 weeks. Orders: Orders Complete Blood Count Auto Diff Today D64.9 - Anemia, unspecified Lipid Panel Today E78.5 - Hyperlipidemia, unspecified AMB Hemoglobin A1c Today E11.9 - Type 2 diabetes mellitus without complications Influenza [id number] Immunization Today Z23 - Encounter for immunization IRON PROFILE Today D64.9 - Anemia, unspecified Microalbumin, Random (w Creat) Today E11.9 - Type 2 diabetes mellitus without complications Comprehensive [place]. Panel Fast Today E11.9 - Type 2 diabetes mellitus without complications Referrals Pain Management Referral M48.062 - Spinal stenosis, lumbar region with neurogenic claudication Medications: Changed From oxycodone Partial Fill upon patient request. 5 mg PO Q4H 7 days PRN 42 tabs 0RF pain (scale score 4-6) To oxycodone Partial Fill upon patient request. 5 mg PO .every 6 hours 30 days PRN 120 tabs 0RF pain (scale score 4-6) Coding Level of Care Code Est Pt Level 4 (47420) Diagnoses Diabetes mellitus E11.9 Mild recurrent major depression F33.0 Mixed hyperlipidemia E78.2 Essential hypertension I10 Time Spent (min) 23
[2023-04-07 12:22] VITALS: BP 152/80; BMI 37.9
[2023-04-07 12:50] VITALS: BP 150/80
== END 2023-04-07 12:43 | disposition home or self-care (01) ==
PROVIDERS: PCP Internal Medicine; Visit Provider Internal Medicine
DX: E11.9 Type 2 diabetes mellitus without complications (principal); F33.0 Major depressive disorder, recurrent, mild; E78.2 Mixed hyperlipidemia; I10 Essential (primary) hypertension; Z23 Encounter for immunization
CPT/HCPCS: 83036; 90471; 90686; 99214

== ENCOUNTER 2023-04-10 09:20 | Outpatient (AMB) | payer OTHER, MEDICAID, SELFPAY ==
--- NOTE | 2023-04-10 09:23 | MHC.OFFVIS ---
Intake Intake Visit Reasons: PO-s/p LT TKA 02/11/23 Intake Note: Carlos is a 67 year old male who presents today for a post operative appointment s/p Left TKA on 02/11/23 NE. At his last visit he had concerns of redness at incision site. He reports his incision site looks betters. He reports 7/10 pain and is taking pain medication. Allergies Penicillins [PENICILLINS] Allergy (Severe, Verified 04/10/23 09:28) RASH jay pepper Allergy (Intermediate, Verified 04/10/23 09:28) Rash pepper (genus Capsicum) Adverse Reaction (Intermediate, Verified 04/10/23 09:28) rashes Medication List - Last Reconciled 04/10/23 by Janae Dias, LAUREANO acetaminophen 650 mg (2 x 325 mg) PO Q6H PRN 30 days aspirin (Adult Low Dose Aspirin) 81 mg PO DAILY atorvastatin 20 mg PO DAILY 30 days benazepril 40 mg PO DAILY blood pressure monitor As directed celecoxib 200 mg PO BID 30 days [chair lift As directed] cyclobenzaprine 10 mg PO BEDTIME PRN 90 days docusate sodium 100 mg PO BID 30 days dulaglutide (Trulicity) 1.5 mg subcut POSADAS@0900 enoxaparin 40 mg (0.4 mL) subcut Q24H 42 days fenofibrate nanocrystallized 145 mg PO DAILY 90 days flash glucose scanning reader (AddvocateStyle Tirso 14 Day [place]) As directed flash glucose sensor (FreeStyle Tirso 2 Sensor kit) As directed furosemide 20 mg PO DAILY 90 days hydralazine 10 mg PO TID 90 days icosapent ethyl (Vascepa) 2 grams (2 x 1 gram) PO BID 30 days insulin degludec (Tresiba FlexTouch U-200 insulin) 55 units (0.275 mL) subcut BEDTIME 90 days latanoprost 0.005% 1 drp ophthalmic (eye) BEDTIME lisinopril 20 mg PO DAILY 90 days lorazepam 1 mg PO BID metformin ER 500 mg PO BID oxycodone 5 mg PO .every 6 hours PRN 30 days pen needle, diabetic five times a day sennosides (senna) 8.6 mg PO BEDTIME PRN 90 days sitagliptin phosphate (Januvia) 25 mg PO DAILY walker As directed walker (Ultra[place]Light Roll[place] [facility] [place] HPI PO-s/p LT TKA 02/11/23 HPI Details Carlos is a 67 year old Diabetic man ~2 months S/P left TKA. He says he is doing better but continues to have pain. At his last appointment he was concerned about possible infection due to increased redness about his incision. He says this has resolved He rates his pain currently at 7/10 and he is managing this with Oxycodone and Tylenol. He continues to have difficulty extending his leg and says both this and his pain worsened in the last few weeks. He needs to fly to [place] soon as his mother recently . [facility] Medical History Knee osteoarthritis Mild recurrent major depression Mixed hyperlipidemia Right shoulder pain Right knee pain Left knee pain CKD (chronic kidney disease), stage III Low back pain Multiple falls Syncope DAVINA (acute kidney injury) Obesity due to excess calories Lumbar spondylosis Proteinuria Arthritis Hypertriglyceridemia Hypertension Diabetic polyneuropathy associated with type 2 diabetes mellitus Type 2 diabetes mellitus with other diabetic kidney complication Lumbar stenosis Surgical History History of total left knee replacement (TKR) S/P evacuation of hematoma Hx of cataract surgery History of lumbar surgery Hx of eye surgery History of back surgery Family History Father Medical history unknown Mother No problems noted. Maternal Grandmother Medical history unknown Social History Household Members: None Housing: Apartment Are you a primary animal caretaker supervisor to a significant other at home: No Do you presently have visiting nurse or other home services: Yes ([employer]) Alcohol intake: never Patient Tobacco Use Status: Former Tobacco user Quit Date: 2 years ago Tobacco use type: Cigarette Years Smoked: 25 e-Cigarette/Vaping Use: Never Used Second Hand Smoke Exposure: No Use of substances other than those prescribed or required for medical reasons: No Are you DNR?: No Advance Directives: No Advance Directives Information Provided: Yes service: Yes Current occupational status: disabled Cognitive needs: Yes (walker) Hearing needs: No Vision needs: Yes (reading glasses) Review of Systems Const All systems reviewed & are unremarkable except as noted in HPI and below Physical Exam Const General: no acute distress, alert and awake Orientation/consciousness: patient oriented x3 HEENT Head: Yes normocephalic and Yes atraumatic Eyes EOM: EOMs intact bilaterally Resp Effort & Inspection: normal respiratory effort and able to speak in complete sentences Cardio Jugular venous distension: no JVD Skin General skin exam: turgor normal Rashes: no rashes Neuro General: patient oriented x3 Extrem Other: Left Knee: No evidence of infection 25-110 degrees ROM 25 deg ext lag wiyth palpable defect over distal quad tendon No effusion Psych Appearance: grossly normal Affect: normal affect Attitude: cooperative Assessment & Plan Assessment & Plan (1) Rupture of left quadriceps tendon: Code(s): S76.112A - Strain of left quadriceps muscle, fascia and tendon, initial encounter Plan: This is a 67 year old man with a left quad tendon tear, S/P left TKA, DOS: 02/11/23. He has difficulty with knee extension and continues to have pain. It is unclear when this occurred as at his last visit this was not present. He thinks it started a few weeks ago but cannot be sure. I recommend a left quad tendon repair, to be done on 04/15/23. He needs to fly to [place] soon as his mother recently so this should be performed as soon as possible. I explained this surgery to Carlos including the risks, benefits, and recovery timeline. He will speak with Joann to schedule this procedure. (2) Status post total knee replacement, left: Code(s): Z96.652 - Presence of left artificial knee joint (3) Diabetes mellitus: Code(s): E11.9 - Type 2 diabetes mellitus without complications Plan Scribed for Wesley Apple MD by John Archer, medical office manager, on 04/10/23 at 9:45 AM, EST. Medications: Discontinued enoxaparin Discontinued Reason: No Longer Medically Relevant 40 mg (0.4 mL) subcut Q24H 42 days 16.8 mL 0RF Coding Level of Care Code Est Pt Level 4 (29858) Global (41302) Diagnoses Rupture of left quadriceps tendon S76.112A Status post total knee replacement, left Z96.652 Diabetes mellitus E11.9
== END 2023-04-10 10:03 | disposition home or self-care (01) ==
PROVIDERS: PCP Internal Medicine; Visit Provider Orthopaedic Surgery
DX: S76.112A Strain of left quadriceps muscle, fascia and tendon, initial encounter (principal); Z47.1 Aftercare following joint replacement surgery; Z96.652 Presence of left artificial knee joint
CPT/HCPCS: 99024; 99214

== ENCOUNTER → 2023-04-10 09:20 | Outpatient (BNVA) | payer OTHER, MEDICAID, SELFPAY | PROVIDERS: PCP Internal Medicine; Visit Provider Orthopaedic Surgery | DX: Z47.1 Aftercare following joint replacement surgery (principal); S76.112A Strain of left quadriceps muscle, fascia and tendon, initial encounter; E11.9 Type 2 diabetes mellitus without complications; Z96.652 Presence of left artificial knee joint | CPT/HCPCS: 99212 ==

== ENCOUNTER → 2023-04-15 09:32 | Outpatient (BNV) | payer OTHER, SELFPAY | PROVIDERS: PCP Internal Medicine; Visit Provider Orthopaedic Surgery | DX: S76.112A Strain of left quadriceps muscle, fascia and tendon, initial encounter (principal) | CPT/HCPCS: 27385; 97605; 99024; 99212; G0180 ==

== ENCOUNTER → 2023-04-15 09:32 | Outpatient (BNV) | payer OTHER, SELFPAY | PROVIDERS: PCP Internal Medicine; Visit Provider Physician Assistant | DX: S76.112A Strain of left quadriceps muscle, fascia and tendon, initial encounter (principal) | CPT/HCPCS: 99222; 99499 ==

== ENCOUNTER 2023-04-17 13:36 | Inpatient (IN) | payer OTHER, SELFPAY ==
--- NOTE | 2023-04-11 09:14 | HO.ANESPROP2 ---
Documented by User: Celsa Brown NP 04/11/23 09:23 HPI - Anesthesia Eval Consult details Narrative: 67yo M for Left Knee exploration, possible Quadricep Repair s/p L TKA 02/2023 with spinal and block - cardiac w/u and clearance prior [facility] Active Problems Active Problems: All Active Problems (Updated 04/10/23 @ 09:46 by John Archer) Rupture of left quadriceps tendon (Acute) Essential hypertension (Acute) Diabetes mellitus (Acute) Status post total knee replacement, left (Acute) Preoperative cardiovascular examination (Acute) Abnormal EKG (Acute) Orthostatic hypotension (Acute) Pre-op evaluation (Acute) Arthritis of both knees (Acute) Diabetic neuropathy associated with type 2 diabetes mellitus (Acute) Microalbuminuria (Acute) Osteoarthritis of left knee (Acute) Knee osteoarthritis (Acute) Mild recurrent major depression (Acute) Mixed hyperlipidemia (Acute) Right shoulder pain (Acute) Right knee pain (Acute) Left knee pain (Acute) CKD (chronic kidney disease), stage III (Acute) Proteinuria (Acute) Diabetic polyneuropathy associated with type 2 diabetes mellitus (Acute) Hypertriglyceridemia (Acute) Obesity due to excess calories (Acute) Lumbar stenosis (Acute) Past Medical History Medical History Knee osteoarthritis Mild recurrent major depression Mixed hyperlipidemia Right shoulder pain Right knee pain Left knee pain CKD (chronic kidney disease), stage III Low back pain Multiple falls Syncope DAVINA (acute kidney injury) Obesity due to excess calories Lumbar spondylosis Proteinuria Arthritis Hypertriglyceridemia Hypertension Diabetic polyneuropathy associated with type 2 diabetes mellitus Type 2 diabetes mellitus with other diabetic kidney complication Lumbar stenosis Family History Family History Father Medical history unknown Mother No problems noted. Maternal Grandmother Medical history unknown Family history of problems with anesthesia: No Surgical History Surgical History History of total left knee replacement (TKR) S/P evacuation of hematoma Hx of cataract surgery History of lumbar surgery Hx of eye surgery History of back surgery History of Problems with Anesthesia: No Social History Social History Household Members: None Housing: Apartment Are you a primary ocular care aide to a significant other at home: No Do you presently have visiting nurse or other home services: Yes ([employer]) Alcohol intake: never Patient Tobacco Use Status: Former Tobacco user Quit Date: 2 years ago Tobacco use type: Cigarette Years Smoked: 25 e-Cigarette/Vaping Use: Never Used Second Hand Smoke Exposure: No Use of substances other than those prescribed or required for medical reasons: No Are you DNR?: No Advance Directives: No Advance Directives Information Provided: Yes service: Yes Current occupational status: disabled Cognitive needs: Yes (walker) Hearing needs: No Vision needs: Yes (reading glasses) Meds Allergies Allergy/AdvReac Type Severity Reaction Status Date / Time Penicillins [PENICILLINS] Allergy Severe RASH Verified 04/10/23 09:28 jay pepper Allergy Intermediate Rash Verified 04/10/23 09:28 pepper (genus Capsicum) AdvReac Intermediate rashes Verified 04/10/23 09:28 Home Medications Medication Instructions Recorded Confirmed Last Taken Type lorazepam 1 mg tablet 1 mg PO BID 04/14/20 04/15/23 02/10/23 History latanoprost 0.005 % eye drops 1 drp ophthalmic (eye) BEDTIME 11/07/20 04/15/23 02/10/23 History dulaglutide 1.5 mg/0.5 mL 1.5 mg subcut POSADAS@0900 02/11/23 04/15/23 02/09/23 History subcutaneous pen injector (Trulicity) metformin 500 mg tablet,extended 500 mg PO BID 02/11/23 04/15/23 04/13/23 History release 24 hr sitagliptin phosphate 25 mg tablet 25 mg PO DAILY 02/11/23 04/15/23 02/10/23 History (Januvia) aspirin 81 mg tablet,delayed 81 mg PO DAILY 04/07/23 04/15/23 Unknown History release (Adult Low Dose Aspirin) Exam Exam Date and Time: April 11, [id number] Pertinent Lab Results Pertinent Lab Results: Laboratory Tests 02/13/23 06:01 WBC 9.9 Hgb 12.7 L Hct 39.2 L Plt Count 176 Sodium 137 Potassium 4.3 Chloride 107 Carbon Dioxide 23 BUN 21 H Creatinine 1.35 Narrative Narrative: EKG 01/2023 Vent. Rate : 089 BPM ? ? Atrial Rate : 089 BPM ?? P-R Int : 152 ms? QRS Dur : 092 ms ? ? QT Int : 368 ms ? ? ? P-R-T Axes : 045 -19 060 degrees ?? QTc Int : 447 ms ? Normal sinus rhythm Inferior infarct , age undetermined Abnormal ECG When compared with ECG of 07-NOV-2020 09:57, No significant change was found ECHO 01/2023 Conclusions: - 1. Normal LV ejection fraction of 60 65% with grade 1 diastolic dysfunction? 2. Limited visualization cardiac valves with normal cardiac? ? ? valvular Doppler ? 3. Upper limits of normal ascending aortic size? NM celia perf SPECT rest & str 01/2023 Impression: ? 1.? Myocardial perfusion imaging study shows likely normal myocardial perfusion 2.? Gated LVEF is 66% 3. Transient ischemic dilatation not present ? EKG is Nondiagnostic for ischemia Assessment and Plan Assessment Anesthesia Assessment: Chart Reviewed Final Anesthetic Review Family History of Problems with Anesthesia: No History of Problems with Anesthesia: No Documented by User: Fredrick Gorman MD 04/15/23 17:29 [facility] Past Medical History Medical History Knee osteoarthritis Mild recurrent major depression Mixed hyperlipidemia Right shoulder pain Right knee pain Left knee pain CKD (chronic kidney disease), stage III Low back pain Multiple falls Syncope DAVINA (acute kidney injury) Obesity due to excess calories Lumbar spondylosis Proteinuria Arthritis Hypertriglyceridemia Hypertension Diabetic polyneuropathy associated with type 2 diabetes mellitus Type 2 diabetes mellitus with other diabetic kidney complication Lumbar stenosis Family History Family History Father Medical history unknown Mother No problems noted. Maternal Grandmother Medical history unknown Surgical History Surgical History History of total left knee replacement (TKR) S/P evacuation of hematoma Hx of cataract surgery History of lumbar surgery Hx of eye surgery History of back surgery Social History Social History Household Members: None Housing: Apartment Are you a primary ocular care aide to a significant other at home: No Do you presently have visiting nurse or other home services: Yes ([employer]) Alcohol intake: never Patient Tobacco Use Status: Former Tobacco user Quit Date: 2 years ago Tobacco use type: Cigarette Years Smoked: 25 e-Cigarette/Vaping Use: Never Used Second Hand Smoke Exposure: No Use of substances other than those prescribed or required for medical reasons: No Are you DNR?: No Advance Directives: No Advance Directives Information Provided: Yes service: Yes Current occupational status: disabled Cognitive needs: Yes (walker) Hearing needs: No Vision needs: Yes (reading glasses) Meds Allergies Allergy/AdvReac Type Severity Reaction Status Date / Time Penicillins [PENICILLINS] Allergy Severe RASH Verified 04/10/23 09:28 jay pepper Allergy Intermediate Rash Verified 04/10/23 09:28 pepper (genus Capsicum) AdvReac Intermediate rashes Verified 04/10/23 09:28 Home Medications Medication Instructions Recorded Confirmed Last Taken Type lorazepam 1 mg tablet 1 mg PO BID 04/14/20 04/15/23 02/10/23 History latanoprost 0.005 % eye drops 1 drp ophthalmic (eye) BEDTIME 11/07/20 04/15/23 02/10/23 History dulaglutide 1.5 mg/0.5 mL 1.5 mg subcut POSADAS@0900 02/11/23 04/15/23 02/09/23 History subcutaneous pen injector (Trulicity) metformin 500 mg tablet,extended 500 mg PO BID 02/11/23 04/15/23 04/13/23 History release 24 hr sitagliptin phosphate 25 mg tablet 25 mg PO DAILY 02/11/23 04/15/23 02/10/23 History (Januvia) aspirin 81 mg tablet,delayed 81 mg PO DAILY 04/07/23 04/15/23 Unknown History release (Adult Low Dose Aspirin) Exam Airway Mallampati Class: III Loose/Missing/Broken Teeth: Yes Assessment and Plan Assessment Anesthesia Assessment: Anesthesia Plan Discussed Final Anesthetic Review NPO: Yes ASA Class: III (urgent ) Final Preanesthetic Review: Meds/Allgs Chart Reviewed, Consent Obtained/Reviewed and Anes Risks/Benef Reviewed Patient Risk: Intermediate Procedure Risk: Intermediate Anesthetic Plan Anesthetic Plan: Spinal and Agree w/ Assess. and Plan Disposition: Standard PACU and Inp. Admit - IMC
[2023-04-15] VITALS (14 sets, daily range): BP systolic 126–178; BP diastolic 73–92; PULSE 80–95; RESP 14–18; TEMP 36.2–37.1; O2SAT 97–100; BMI 36.5; BMI 34.5
--- NOTE | 2023-04-15 14:29 | PM.OP ---
Brief Operative Note Date of Service: 04/15/23 Pre-op diagnosis: left quad tear Post-op diagnosis: same Procedure: Left quad repair Surgeon: Wesley Apple MD Anesthesia: spinal Was an Web Machine Tender used for this Procedure?: Yes Web Machine Tender: Samy Ryan Estimated blood loss (mL): 50 Tourniquet time (min): 16 IV fluids (mL): 700 Pathology: none sent Condition: stable Disposition: PACU
--- NOTE | 2023-04-15 18:34 | PHA.MEDREC ---
Pharmacy Consult ? Medication Reconciliation Pharmacy has reviewed the medication reconciliation.
--- NOTE | 2023-04-15 19:17 | HO.PM.IMCN ---
History of Present Illness Data of Consult Service Date: 04/15/23 Requesting physician: Smay Ryan Primary Care Provider: MD NIRMAL Leary Reason for consult: Medical management 67-year-old male with history of hypertension, insulin-dependent type 2 diabetes, CKD stage 3, diabetic polyneuropathy, hyperlipidemia, mood disorder, and lumbar stenosis admitted to Orthopedic surgery for management of left quadriceps tear with consult placed to hospitalist service for medical management. Patient's diet has been resumed and he is tolerating this well. Blood pressures remain elevated today. Denies any headaches or chest pain or visual changes. Denies any alcohol use, drug use, or cigarette smoking. He has no complaints at this time. Review of Systems Review of Systems: General: No fevers, malaise, unintentional weight loss HEENT: No blurred vision, diplopia. Cardiovascular: No chest pain, palpitations, or leg edema Respiratory: No shortness of breath, wheezing, cough GI: No abdominal pain, nausea, vomiting, diarrhea, constipation, melena, hematochezia : No dysuria, hematuria, increased urinary frequency, decreased urinary output MSK: No myalgia, back pain Neuro: No headaches, weakness, paresthesias Skin: No rashes or lesions PMFSH Medical History Knee osteoarthritis Mild recurrent major depression Mixed hyperlipidemia Right shoulder pain Right knee pain Left knee pain CKD (chronic kidney disease), stage III Low back pain Multiple falls Syncope DAVINA (acute kidney injury) Obesity due to excess calories Lumbar spondylosis Proteinuria Arthritis Hypertriglyceridemia Hypertension Diabetic polyneuropathy associated with type 2 diabetes mellitus Type 2 diabetes mellitus with other diabetic kidney complication Lumbar stenosis Family History Father Medical history unknown Mother No problems noted. Maternal Grandmother Medical history unknown Surgical History History of total left knee replacement (TKR) S/P evacuation of hematoma Hx of cataract surgery History of lumbar surgery Hx of eye surgery History of back surgery Social History Household Members: None Household Members Other:: self Housing: Apartment Are you a primary healthcare management to a significant other at home: No Do you presently have visiting nurse or other home services: Yes ([employer]) Alcohol intake: never Patient Tobacco Use Status: Former Tobacco user Quit Date: 2 years ago Tobacco use type: Cigarette Years Smoked: 25 e-Cigarette/Vaping Use: Never Used Second Hand Smoke Exposure: No Use of substances other than those prescribed or required for medical reasons: No Have you been hit, kicked, punched, or otherwise hurt by someone within the past year? If so, by whom?: No Do you feel safe in your current relationship?: Yes Is there a partner from a previous relationship who is making you feel unsafe now?: No Are you made to feel afraid or neglected: No Faith Healthcare Practices: judaism Are you DNR?: No Advance Directives: No Advance Directives Information Provided: Yes Advance Directives on File: No Do you have thoughts of harming others: None Recently lost weight without trying: No Nutrition Risks: No Nutritional Risk Poor oral hygiene: No service: Yes Current occupational status: disabled Cognitive needs: Yes (walker) Hearing needs: No Vision needs: Yes (reading glasses) Meds Allergies Allergy/AdvReac Type Severity Reaction Status Date / Time Penicillins [PENICILLINS] Allergy Severe RASH Verified 04/10/23 09:28 jay pepper Allergy Intermediate Rash Verified 04/10/23 09:28 pepper (genus Capsicum) AdvReac Intermediate rashes Verified 04/10/23 09:28 Active Medications: Current Medications Acetaminophen (Acetaminophen 325 Mg Tablet) 650 mg PO Q6H PRN PRN Reason: Pain, Mild (Pain Scale 1-3) Aspirin (Aspirin 325 Mg Tablet) 325 mg PO BID IMTIAZ Cyclobenzaprine HCl (Cyclobenzaprine Hcl 10 Mg Tablet) 10 mg PO BEDTIME PRN PRN Reason: muscle spasm Dextrose (Dextrose 50 % 25 Gm/50 Ml Syringe) 25 gm IVPUSH Q15M PRN; Protocol PRN Reason: per Hypoglycemia Standing Ord. Docusate Sodium (Docusate Sodium 100 Mg Capsule) 100 mg PO BID IMTIAZ Glucose (Glucose Gel 15 Gm Gel..Gram.) 15 gm PO Q15M PRN; Protocol PRN Reason: per Hypoglycemia Standing Ord. Hydromorphone HCl (Hydromorphone Hcl 0.5 Mg/0.5 Ml Syringe) 0.25 mg IVPUSH Q4H PRN; Protocol PRN Reason: Pain, Severe (Pain Scale 7-10) Lactated Ringer's (Lr) 1,000 mls @ 100 mls/hr IVCONT .Q10H [facility] Last Admin: 04/15/23 14:43 Dose: 100 mls/hr Cefazolin Sodium/Dextrose (Ancef) 2 gm in 50 mls @ 100 mls/hr IV POSTOP ONE Stop: 04/15/23 19:44 Insulin Human Lispro (Insulin Lispro 100 Unit/Ml 3 Ml Vial) 0 unit SUBCUT QIDACHS [facility]; Protocol Ondansetron HCl (Ondansetron Hcl 4 Mg/2 Ml Vial) 4 mg IVPUSH Q8H PRN PRN Reason: Nausea and Vomiting Oxycodone HCl (Oxycodone Hcl Immed Release 5 Mg Tablet) 5 mg PO Q4H PRN PRN Reason: Pain, Moderate(Pain Scale 4-6) Oxycodone HCl (Oxycodone Hcl Er 10 Mg Tab.Er.12h) 10 mg PO BID [facility] Sodium Chloride (0.9 % Sodium Chloride Flush 3 Ml Syringe) 3 ml IVFLUSH QSHIFT [facility] Last Admin: 04/15/23 19:11 Dose: Not Given Home Medications Medication Instructions Recorded Confirmed Last Taken Type lorazepam 1 mg tablet 1 mg PO BID PRN Anxiety 04/14/20 04/15/23 02/10/23 History latanoprost 0.005 % eye drops 1 drp ophthalmic (eye) BEDTIME 11/07/20 04/15/23 02/10/23 History dulaglutide 1.5 mg/0.5 mL 1.5 mg subcut POSADAS@0900 02/11/23 04/15/23 02/09/23 History subcutaneous pen injector (Trulicity) metformin 500 mg tablet,extended 500 mg PO BID 02/11/23 04/15/23 04/13/23 History release 24 hr sitagliptin phosphate 25 mg tablet 25 mg PO DAILY 02/11/23 04/15/23 02/10/23 History (Januvia) aspirin 81 mg tablet,delayed 81 mg PO DAILY 04/07/23 04/15/23 Unknown History release (Adult Low Dose Aspirin) Physical Exam Vital Signs and Narrative: Vital Signs: Last Vital Signs Temp 97.2 F 04/15/23 18:52 Pulse 85 04/15/23 18:52 Resp 18 04/15/23 18:52 BP 162/73 H 04/15/23 18:52 Pulse Ox 100 04/15/23 18:52 O2 Del Method Room Air 04/15/23 18:52 O2 Flow Rate 3 04/15/23 13:59 BMI result Body Mass Index 34.5 Constitutional - Awake and Alert, No apparent distress Eyes - PERRLA, EOMI Cardiovascular - S1S2, RRR, 1+ LLE edema Respiratory - Normal lung expansion, Normal respiratory effort, No respiratory distress, CTA bilaterally Gastrointestinal - NT / ND; +BS; No rebound or guarding Extremities - no calf tenderness bilaterally, no swelling Skin - Warm/Dry Neurological - Alert & oriented x3 Psychological - Appropriate affect Results Labs Labs: Laboratory Results - last 24 hr 04/15/23 04/15/23 10:01 18:03 POC Glucose 106 158 H Assessment and Plan (1) Rupture of left quadriceps tendon: Status: Acute Plan 67-year-old male with history of hypertension, insulin-dependent type 2 diabetes, CKD stage 3, diabetic polyneuropathy, hyperlipidemia, mood disorder, and lumbar stenosis admitted to Orthopedic surgery for management of left quadriceps tear with consult placed to hospitalist service for medical management. # left quadriceps tear -pain controlled, plan per orthopedic surgery # hypertension -blood pressure is uncontrolled -resume hydralazine, hold lisinopril at this time # insulin-dependent type 2 diabetes -POC glucose -diabetic diet -dose adjusted basal insulin -Humalog on sliding scale -hold Trulicity, metformin # CKD stage 3 -BMP pending for tomorrow # mood disorder -continue home meds # HLD -continue statin, fenofibrate DVT prophylaxis- per Orthopedic surgery Thank you for this consult, will continue following Time Spent With Patient Time: Total time managing care of this patient today ____ minutes.
[2023-04-16] VITALS (8 sets, daily range): BP systolic 144–180; BP diastolic 72–98; PULSE 81–93; RESP 17–19; TEMP 36.1–36.9; O2SAT 96–99
[2023-04-16 07:19] LABS: Anion Gap 14 (12-20); Blood Urea Nitrogen 16 mg/dL (9-16); Calcium 9.2 mg/dL (8.4-10.2); Carbon Dioxide 22 mmol/L (22-29); Chloride 109 mmol/L (96-108); Creatinine Clr Calc Pharmacy 102.8; Estimated Glomerular Filt Rate > 60; Glucose Fasting 113 mg/dL (60-99); Potassium 4.1 mmol/L (3.3-5.1); Sodium 141 mmol/L (135-145)
--- NOTE | 2023-04-16 07:24 | PM.PNORT ---
Subjective Subjective Date of Service: 04/16/23 Interval history: POD1 s/p left quad tendon repair Patient is resting in bed comfortably sleeping No overnight events Pain is managed Allowed to sleep Physical Exam Vital Signs: Vital Signs: Last Vital Signs Temp 97.2 F 04/16/23 03:07 Pulse 86 04/16/23 03:07 Resp 18 04/16/23 03:07 BP 162/98 H 04/16/23 03:07 Pulse Ox 97 04/16/23 03:07 O2 Del Method Room Air 04/16/23 03:07 O2 Flow Rate 3 04/15/23 13:59 BMI result Body Mass Index 34.5 Const: General: cooperative, healthy appearing and no acute distress Resp: Effort & Inspection: normal respiratory effort and able to speak in complete sentences Cardio: Rate: regular rate Peripheral pulses: Peripheral pulses 2+ throughout GI: Palpation (GI): Soft to palpation Skin: Lesions: no lesions Rashes: no rashes Extrem: Other: left knee dressing is c/d/i. Pedal pulse intact. Procedures Date of Service Date of Service: 04/16/23 Progress Note: A&P Assessment and plan (1) Rupture of left quadriceps tendon: Status: Acute Plan Continue pain mgmnt Begin ASA for dvt ppx begin PT for left quad tendon repair - WBAT, ROM to tolerance Dispo planning-Pending PT eval, pain mgmnt Time Spent With Patient Time: Total time managing care of this patient today ____ minutes. Quality Stroke Does the patient have a stroke diagnosis?: No VTE Prior VTE?: No VTE Risk Level:: Medical - moderate - high VTE Device Contraindication: N/A - Device Ordered VTE Drug Contraindication: N/A - Med Ordered
[2023-04-16] MEDS: Lactated Ringers 1,000 ML 100 ML IVCONT ×2 (10:29→19:41)
--- NOTE | 2023-04-16 10:43 | MHC.CM.PN ---
Addendum entered by Nafisa Gomez 04/16/23 14:34: CALL PLACED TO TRANSITIONS OF CARE NURSE LOLA REGARDING APPROVAL FOR HOME PT WITH [facility], AWAITING RETURN CALL. 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 USES WALKER FOR MOBILITY. P.T. REC STR ON DC BUT PT DECLINES. REFERRAL SENT TO [facility] PER PT REQUEST. +COVID [facility] NO HCP, DECLINES AT THIS TIME. PCP DR. NOWAK DP: PT REQUESTS HOME WITH SERVICES ON DC. CHEMICAL EQUIPMENT REPAIRER WILL TRANSPORT. CM WILL CONTINUE TO FOLLOW FOR ANY CHANGE IN DC PLAN/NEEDS
--- NOTE | 2023-04-16 11:48 | PM.EVENT ---
Event Note Date of Service: 04/16/23 Event Note: Patient seen and examined in follow-up. Patient is reporting 9/10 pain, RN notified. Antihypertensives resumed last night, blood pressures have been stable. Continue hydralazine, resume SHANNON-inhibitor on discharge. Glucose levels remain well controlled. Continue basal insulin and sliding scale. Resume metformin on discharge. He has no other complaints at this time. Thank you for allowing me to participate in this consult. Signing off at this time. Please do not hesitate to call for further questions. Time Spent With Patient Time: Total time managing care of this patient today ____ minutes.
--- NOTE | 2023-04-16 11:57 | HO.POSTANES ---
Post Anesthesia Evaluation Post Anesthesia Evaluation Date of Service: 04/16/23 Vital Signs: Vital Signs Temp Pulse Resp BP Pulse Ox O2 Del Method 04/16/23 09:03 90 150/72 H 96 04/16/23 07:52 97.3 F 90 17 150/72 H 96 Room Air 04/16/23 03:07 97.2 F 86 18 162/98 H 97 Room Air 04/16/23 00:00 97 F 81 19 168/96 H 99 Room Air Anesthesia: Spinal Mental Status: Awake Pain Control: Satisfactory (complains of pain) Nausea/Vomiting: None Hydration: Adequate Anesthesia-Related Issues: No Anes. Related Issues
--- NOTE | 2023-04-16 12:28 | MHC.CLN ---
NUTRITION INCREASED DIET KCALS TO DIABETIC 2000 KCALS TO BETTER MEET ESTIMATED NUTRITIONAL NEEDS.
[2023-04-16 16:55] LABS: Glucose, Whole Blood 115 mg/dL (60-115)
[2023-04-16 20:05] LABS: Glucose, Whole Blood 147 mg/dL (60-115)
[2023-04-16] MEDS: Aspirin 325 MG TABLET PO (20:47)
[2023-04-16] MEDS: oxyCODONE HCl ER 10 MG TAB.ER.12H PO (20:47)
[2023-04-16] MEDS: Docusate Sodium 100 MG CAPSULE PO (20:47)
[2023-04-16] MEDS: hydrALAZINE HCl 10 MG TABLET PO (20:47)
[2023-04-16] MEDS: Insulin Glargine,Hum.rec.anlog 100 UNIT/ML 10 ML VIAL 28 UNIT SUBCUT (20:48)
[2023-04-16] MEDS: oxyCODONE HCl Immed Release 5 MG TABLET PO (23:58)
[2023-04-17] VITALS (8 sets, daily range): BP systolic 148–170; BP diastolic 67–90; PULSE 89–102; RESP 17–18; TEMP 36.4–36.9; O2SAT 95–96
[2023-04-17] MEDS: Lactated Ringers 1,000 ML 100 ML IVCONT (05:38)
[2023-04-17 06:56] LABS: MANUAL DIFF FLAG NO
[2023-04-17 07:10] LABS: Basophils Percent Auto 0.3 % (0-2); Eosinophils Absolute Auto 0.4 X10*3/uL (0.0-0.4); Eosinophils Percent Auto 3.6 % (0-4); Hematocrit 39.3 % (42.0-52.0); Hemoglobin 12.5 g/dl (14.0-18.0); Imm Gran Abs Auto 0.04 X10*3/uL (0.00-0.03); Imm Gran Pct Auto 0.4 % (0.0-0.4); Lymphocytes Percent Auto 18.4 % (20-40); Mean Corpuscular HGB Conc 31.8 g/dl (31.0-36.0); Mean Corpuscular Volume 84.9 fL (80.0-98.0); Mean Platelet Volume 12.9 fL (9.4-12.4); Monocytes Percent Auto 9.4 % (2-11); Neutrophils Absolute Auto 7.2 x10*3/uL (2.0-8.3); Neutrophils Percent Auto 67.9 % (45-73); Platelet Count 174 X10*3/uL (160-400); Red Blood Count 4.63 X10*6/uL (4.60-5.80); Red Cell Distribution Width 16.5 % (11.0-16.0); White Blood Count 10.6 X10*3/uL (4.8-10.8)
[2023-04-17 07:18] LABS: Anion Gap 14 (12-20); Blood Urea Nitrogen 14 mg/dL (9-16); Calcium 9.4 mg/dL (8.4-10.2); Carbon Dioxide 24 mmol/L (22-29); Chloride 108 mmol/L (96-108); Creatinine Clr Calc Pharmacy 101.6; Estimated Glomerular Filt Rate > 60; Glucose Fasting 105 mg/dL (60-99); Potassium 4.5 mmol/L (3.3-5.1); Sodium 141 mmol/L (135-145)
[2023-04-17 07:35] LABS: Glucose, Whole Blood 110 mg/dL (60-115)
[2023-04-17] MEDS: Acetaminophen 325 MG TABLET 650 MG PO (08:34)
[2023-04-17] MEDS: Aspirin 325 MG TABLET PO ×2 (08:34→19:56)
[2023-04-17] MEDS: Docusate Sodium 100 MG CAPSULE PO ×2 (08:34→19:56)
[2023-04-17] MEDS: hydrALAZINE HCl 10 MG TABLET PO ×3 (08:35→19:56)
[2023-04-17] MEDS: oxyCODONE HCl ER 10 MG TAB.ER.12H PO ×2 (08:35→20:34)
--- NOTE | 2023-04-17 09:13 | MHC.CM.PN ---
UPDATES SENT TO [facility]. P.T. RECOMMENDATIONS ARE FOR STR, WHICH PATIENT IS REPORTEDLY REFUSING CASE MANAGEMENT TO CONTINUE TO FOLLOW
[2023-04-17 11:33] LABS: Glucose, Whole Blood 125 mg/dL (60-115)
[2023-04-17 16:15] LABS: Glucose, Whole Blood 120 mg/dL (60-115)
[2023-04-17] MEDS: HYDROmorphone HCl 0.5 MG/0.5 ML SYRINGE 0.25 MG IVPUSH (19:29)
[2023-04-17] MEDS: Sennosides 8.6 MG TABLET 17.2 MG PO (19:56)
[2023-04-17 20:19] LABS: Glucose, Whole Blood 155 mg/dL (60-115)
[2023-04-17] MEDS: Insulin Glargine,Hum.rec.anlog 100 UNIT/ML 10 ML VIAL 28 UNIT SUBCUT (20:32)
[2023-04-17] MEDS: Insulin Lispro 100 UNIT/ML 3 ML VIAL SUBCUT (20:33)
[2023-04-18 03:00] VITALS: BP 169/82; PULSE 89; RESP 16; TEMP 36.7; O2SAT 96
[2023-04-18] MEDS: oxyCODONE HCl Immed Release 5 MG TABLET PO ×2 (03:38→14:43)
[2023-04-18] MEDS: HYDROmorphone HCl 0.5 MG/0.5 ML SYRINGE 0.25 MG IVPUSH ×2 (06:44→10:51)
[2023-04-18 06:50] VITALS: BP 160/82; PULSE 89; RESP 17; TEMP 36.6; O2SAT 92
[2023-04-18 07:07] LABS: Glucose, Whole Blood 118 mg/dL (60-115)
[2023-04-18] MEDS: Aspirin 325 MG TABLET PO (08:22)
[2023-04-18] MEDS: oxyCODONE HCl ER 10 MG TAB.ER.12H PO (08:23)
[2023-04-18] MEDS: Docusate Sodium 100 MG CAPSULE PO (08:23)
[2023-04-18] MEDS: hydrALAZINE HCl 10 MG TABLET PO (08:23)
[2023-04-18 10:10] VITALS: BP 160/82; PULSE 89; O2SAT 92
[2023-04-18 11:09] LABS: Glucose, Whole Blood 175 mg/dL (60-115)
--- NOTE | 2023-04-18 11:26 | P.DS_ITS ---
DS: Providers Provider Date of Service: 04/18/23 Date of admission: 04/17/23 13:36 Primary care physician: Tram Álvarez MD Consults: 04/15/23 17:33 Consult to Hospitalist Routine Comment: Consulting Provider: Hospitalist Reason For Exam: DM,CKD, DS: Diagnosis Discharge Diagnosis (1) Rupture of left quadriceps tendon: Status: Acute DS: Summary Hospital Course Hospital Course: The patient underwent a successful left knee quad tendon repair on 04/15/23, was transferred to PACU and then to the floor to recover. During their stay, their vitals were stable, afebrile at . Labs were unremarkable, H/H 12.5/39.3. POD 1 he was started on ASA 325mg tabs po bid for DVT ppx, they also received Physical Therapy services twice a day. Physical therapy should include gait training, ROM to tolerance and quad strength. He is WBAT with brace Prevena dressing should remain on and intact at all times. The plan is to be discharged home with [facility] Time Spent with Patient Time attestation: Total time managing care of this patient today ____ minutes. Discharge coordination time: Less than 30 minutes Quality: Safe Use of Opioids Does Pt have an Active Cancer Diagnosis on the Problem List?: No Quality: Stroke Does the patient have a stroke diagnosis?: No Physical Exam Vital Signs: Vital Signs: Last Vital Signs Temp 98 F 04/18/23 06:50 Pulse 89 04/18/23 10:10 Resp 17 04/18/23 06:50 BP 160/82 H 04/18/23 10:10 Pulse Ox 92 04/18/23 10:10 O2 Del Method Room Air 04/18/23 06:50 O2 Flow Rate 3 04/15/23 13:59 BMI result Body Mass Index 34.5 DS: Data Data Completed and Pending Labs on day of discharge: Laboratory Results - last 24 hr 04/17/23 04/17/23 04/17/23 11:27 16:10 20:16 POC Glucose 125 H 120 H 155 H 04/18/23 04/18/23 07:02 11:02 POC Glucose 118 H 175 H Discharge Plan Discharge Anticipated Discharge Date/Time: 04/18/23 11:20 Patient Disposition: Home Health Service Discharge Diagnosis: s/p roscoe repair left knee Referrals: [facility] [Outside] - 1 Week Samy Ryan PA-C [Physician Packing Line Worker] - 2 Weeks (04/29/23 10:45 [facility] [place] Juani Campos PA-C) Discharge Medications: New docusate sodium 100 mg Capsule 100 mg PO BID 14 Days Qty: 28 0RF aspirin 325 mg Tablet 325 mg PO BID 42 Days Qty: 84 0RF oxycodone 5 mg Tablet 5 mg PO Q4H PRN (Reason: Pain, Moderate(Pain Scale 4-6)) 7 Days Qty: 42 0RF Rx Instructions: Partial Fill upon patient request. acetaminophen 325 mg Tablet 650 mg PO Q6H PRN (Reason: Pain, Mild (Pain Scale 1-3)) 30 Days Qty: 240 0RF Continued (DME) walker [facility] See Rx Instructions .ROUTE .MEDSUPPLY Qty: 1 0RF Rx Instructions: As directed Tresiba FlexTouch U-200 200 unit/mL (3 mL) insulin pen 55 unit subcut BEDTIME 90 Days Qty: 24.75 4RF Rx Instructions: took 25 units sc 04/14/23 pm (DME) pen needle, diabetic 31 gauge x 5/16 needle See Rx Instructions subcut .MEDSUPPLY Qty: 200 4RF Rx Instructions: five times a day (DME) FreeStyle Tirso 2 Sensor Kit See Rx Instructions .Route Qty: 1 0RF Rx Instructions: As directed cyclobenzaprine 10 mg tablet 10 mg PO BEDTIME PRN (Reason: muscle spasm) 90 Days Qty: 90 1RF hydralazine 10 mg tablet 10 mg PO TID 90 Days Qty: 270 2RF furosemide 20 mg tablet 20 mg PO DAILY 90 Days Qty: 90 1RF fenofibrate nanocrystallized 145 mg tablet 145 mg PO DAILY 90 Days Qty: 90 1RF icosapent ethyl [Vascepa] 1 gram capsule 2 g PO BID 30 Days Qty: 120 4RF benazepril 40 mg tablet 40 mg PO DAILY Qty: 30 1RF Hold Instructions: Resume on 11/16/20. Stop taking until repeat lab work is checked. atorvastatin 20 mg tablet 20 mg PO DAILY 30 Days Qty: 30 4RF (DME) Ultra-Light Rollator [facility] See Rx Instructions .ROUTE .MEDSUPPLY Qty: 1 0RF Rx Instructions: with seat sennosides [senna] 8.6 mg tablet 8.6 mg PO BEDTIME PRN (Reason: constipation) 90 Days Qty: 90 1RF latanoprost 0.005 % drops 1 drp ophthalmic (eye) BEDTIME Rx Instructions: 1 drop into both eyes metformin 500 mg tablet extended release 24 hr 500 mg PO BID Januvia 25 mg tablet 25 mg PO DAILY Trulicity 1.5 mg/0.5 mL pen injector 1.5 mg subcut POSADAS@0900 acetaminophen 325 mg Tablet 650 mg PO Q6H PRN (Reason: Pain, Mild (Pain Scale 1-3)) 30 Days Qty: 240 0RF celecoxib 200 mg Capsule 200 mg PO BID 30 Days Qty: 60 0RF docusate sodium 100 mg Capsule 100 mg PO BID 30 Days Qty: 60 0RF (DME) blood pressure monitor Kit See Rx Instructions .Route Qty: 1 0RF Rx Instructions: As directed (DME) chair lift See Rx Instructions .Route .MEDSUPPLY Qty: 1 0RF Rx Instructions: As directed oxycodone 5 mg tablet 5 mg PO .every 6 hours PRN (Reason: pain (scale score 4-6)) 30 Days Qty: 120 0RF Rx Instructions: Partial Fill upon patient request. lorazepam 1 mg tablet 1 mg PO BID PRN (Reason: Anxiety) Rx Instructions: PATIENT IS NON-ADHERENT. DOES NOT HAVE MONEY TO BUY SOME MEDICATION (DME) FreeStyle Tirso 14 Day [place] [facility] See Rx Instructions .ROUTE .MEDSUPPLY Qty: 1 0RF Rx Instructions: As directed Discontinued aspirin [Adult Low Dose Aspirin] 81 mg tablet,delayed release (DR/EC) 81 mg PO DAILY Qty: 90 2RF Discharge Orders: Discharge Order (Routine); Ordered 04/18/23 Ordered By: Samy Ryan Diet: Regular diet Activity on Discharge: Use cane or walker Stand Alone Forms: Patient Portal Discharge page Activity Restrictions/Additional Instructions: Physical Therapy for Total knee arthroplasty: WBAT, gait training, ROM 0-12, quad strength * Limit stair climbing * No showering, no tub bath-keep dressing clean, dry and intact * No driving x6 weeks * Continue Aspirin twice a day x 6 weeks Keep prevena dressing intact at all times. Charge the unit and keep on as all times. If there are any concerns please contact our office danuta. Care Plan Goals: Restore function of joint Health Concerns: none Plan of Treatment: Physical Therapy Pain management DVT prophylaxis Assessment: as above Discharge Date/Time: 04/18/23 15:00
--- NOTE | 2023-04-18 12:00 | MHC.CM.PN ---
PATIENT IS DC HOME HE REFUSES SNF PLACEMENT AND LATEST P.T. NOTE RECOMMENDS HOME WITH SERVICES. [facility] MADE AWARE OF DC. IMM 04/16 PREVIOUSLY COMPLETED
--- NOTE | 2023-04-18 12:05 | P.F2F_ITS ---
Service Date Service Date: 04/18/23 Encounter Date of encounter: 04/18/23 Reasons for Services Signs and symptoms assessed: Weakness, poor balance, poor gait mechanics Reason for physical therapy: home safety and mobility, therapeutic exercises, restore joint function, gait/transfer training, ADL training and energy conservation Reason for occupational therapy: home safety and mobility, therapeutic exercises, restore joint function, gait/transfer training, ADL training and energy conservation Homebound: Leaving the home is medically contraindicated at this time without the asist of a device and/or another person due th the listed conditions above and below. Reason homebound: unsteady gait / fall risk, pain with ambulation, poor balance / fall risk and unable to drive Homebound supporting statement: Pt. is considered home bound due to recent surgery. Unable to drive, poor balance, poor gait mechanics. Certification: Based on the above findings, I certify that this patient is confined to the home and needs intermittent [facility] care, physical therapy and/or speech therapy, or continues to need occupational therapy. The patient is under my care, and I have initiated the establishment of the plan of care. The patient will be followed by a physician who will periodically review the plan of care. Time Spent With Patient Time: Total time managing care of this patient today ____ minutes.
--- NOTE | 2023-04-18 12:09 | MHC.CM.PN ---
[facility] START OF CARE Friday04/21/23 PATIENT AWARE
[2023-04-18] MEDS: Insulin Lispro 100 UNIT/ML 3 ML VIAL SUBCUT (12:14)
[2023-04-18] MEDS: Acetaminophen 325 MG TABLET 650 MG PO (14:42)
--- NOTE | 2023-04-30 12:13 | W.PM.OPN ---
Operative Note Operative Note Date of Service: 04/15/23 Narrative: Date of Service: 04/15/23 Pre-op diagnosis: left quad tear Post-op diagnosis: same Procedure: Left quad repair Surgeon: Wesley Apple MD Anesthesia: spinal Was an Shipping Clerk Crating used for this Procedure?: Yes Shipping Clerk Crating: Samy Ryan Estimated blood loss (mL): 50 Tourniquet time (min): 16 IV fluids (mL): 700 Pathology: none sent Condition: stable Disposition: PACU Patient was brought to the operating room and placed supine on the surgical table. He was prepped and draped in standard sterile fashion and a time out was called to identify proper site, proper procedure and IV antibiotics per weight were administered. I began by opening up the prior TKA incision with sharp dissection. There was no purulence just hematogenous fluid. The distal quad was partially torn intra-tendinous just proximal to the insertion with involvement of the prior arthrotomy. There was a partial dehiscence as well. I irrigated and cleaned the tendon and was able to clean it up sufficiently to reapproximate it. I then repaired the intra substance tear with prolene and the arthrotomy was partially opened up and then repaired with running Quill. The knee was irrigated copiously prior to this closure. I then ranged the knee and the repair was stable. I then closed with subq and bruce and a Proveena vacuum assisted wound closure device was placed. He was awakened from anesthesia and brought to the recovery room in stable condition. There were no known complications.
== END 2023-04-18 15:00 | disposition home health service (06) | DRG 501 ==
LOC: HO.SSS 13:53 → HO.S3 13:53
PROVIDERS: Admitting Provider Physician Assistant; PCP Internal Medicine; Visit Provider Orthopaedic Surgery
PROC: 0LQM0ZZ Repair Left Upper Leg Tendon, Open Approach (ICD-10-PCS; principal; 2023-04-15 11:50)
DX: S76.112A Strain of left quadriceps muscle, fascia and tendon, initial encounter (principal); F33.0 Major depressive disorder, recurrent, mild; X58.XXXA Exposure to other specified factors, initial encounter; E78.2 Mixed hyperlipidemia; I12.9 Hypertensive chronic kidney disease with stage 1 through stage 4 chronic kidney disease, or unspecified chronic kidney disease; N18.30 Chronic kidney disease, stage 3 unspecified; E11.22 Type 2 diabetes mellitus with diabetic chronic kidney disease; E11.42 Type 2 diabetes mellitus with diabetic polyneuropathy; Z79.4 Long term (current) use of insulin; Z79.84 Long term (current) use of oral hypoglycemic drugs; Z79.899 Other long term (current) drug therapy
CPT/HCPCS: 36415; 80048; 82947; 85025; 97110; 97116; 97162; 97530; J0690; J1170; J2250; J2795; J3010

== ENCOUNTER 2023-04-24 13:12 | Outpatient (AMB) | payer OTHER, SELFPAY ==
--- NOTE | 2023-04-24 13:15 | A.OFFVIS_ITS ---
Intake Intake Visit Reasons: Remove Provena wound vac Intake Note: Carlos herrera 67 year old male presents today for a post operative left quad repair, DOS 04/15/23, s/p LT TKA 02/11/23. Allergies Penicillins [PENICILLINS] Allergy (Severe, Verified 04/24/23 13:17) RASH jay pepper Allergy (Intermediate, Verified 04/24/23 13:17) Rash pepper (genus Capsicum) Adverse Reaction (Intermediate, Verified 04/24/23 13:17) rashes HPI Remove Provena wound vac HPI Details Stephane 67 year old male presents today for a post operative left quad repair, DOS 04/15/23, s/p LT TKA 02/11/23. [facility] Medical History Knee osteoarthritis Mild recurrent major depression Mixed hyperlipidemia Right shoulder pain Right knee pain Left knee pain CKD (chronic kidney disease), stage III Low back pain Multiple falls Syncope DAVINA (acute kidney injury) Obesity due to excess calories Lumbar spondylosis Proteinuria Arthritis Hypertriglyceridemia Hypertension Diabetic polyneuropathy associated with type 2 diabetes mellitus Type 2 diabetes mellitus with other diabetic kidney complication Lumbar stenosis Surgical History History of total left knee replacement (TKR) S/P evacuation of hematoma Hx of cataract surgery History of lumbar surgery Hx of eye surgery History of back surgery Family History Father Medical history unknown Mother No problems noted. 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 There is an area along the distal end of the incision that has superficial opening. There is no purulent drainage. He can initiate SLR. He does lack 5 degrees extension, flex to 90 degrees. Calf byrne pple, nontender. NVI. Assessment & Plan Assessment & Plan (1) Rupture of left quadriceps tendon: Code(s): S76.112A - Strain of left quadriceps muscle, fascia and tendon, initial encounter Qualifiers: Encounter type: subsequent encounter Qualified Code(s): S76.112D - Strain of left quadriceps muscle, fascia and tendon, subsequent encounter (2) Status post total knee replacement, left: Code(s): Z96.652 - Presence of left artificial knee joint Plan Sutures remained intact. The prevena was removed and a silver acticoat type dressing was applied. The brace was adjusted and he will continue to wear the brace while weight bearing. He can remove the brace for therapy exercises only and for hygiene purposes. He will see us back in 1 week for staple removal, sooner if needed. Patient Instructions: Scribed for Samy Ryan PA-C, by Aubrey Booker vice president medical affairs, on 04/24/2023 at 2:00 PM EST. I, Samy Ryan PA-C, have personally reviewed and agree with the information entered by the scribe. Coding Level of Care Code Global (01753) Diagnoses Rupture of left quadriceps tendon, subsequent encounter S76.112D Encounter type: subsequent encounter Status post total knee replacement, left Z96.652
== END 2023-04-24 13:59 | disposition home or self-care (01) ==
PROVIDERS: PCP Internal Medicine; Visit Provider Physician Assistant
DX: S76.112D Strain of left quadriceps muscle, fascia and tendon, subsequent encounter (principal); Z96.652 Presence of left artificial knee joint
CPT/HCPCS: 99024

== ENCOUNTER → 2023-04-24 13:12 | Outpatient (BNVA) | payer OTHER, SELFPAY | PROVIDERS: PCP Internal Medicine; Visit Provider Physician Assistant ==

== ENCOUNTER 2023-04-29 10:06 | Outpatient (AMB) | payer OTHER, SELFPAY ==
--- NOTE | 2023-04-29 10:23 | MHC.OFFVIS ---
Intake Vital Signs 04/29/23 10:25 Height 5 ft 8 in Weight 250 lb BMI 38.0 Intake Visit Reasons: PO LT knee exploration 04/15/23NE Intake Note: Carlos is a 67 year old male presents today for a post operative left quad repair, DOS 04/15/23, s/p LT TKA 02/11/23. Patient reports without his ACL brace due to it rubbing on his skin causing him to blister. He states having mild pain but it feels better than before. Allergies Penicillins [PENICILLINS] Allergy (Severe, Verified 04/29/23 10:25) RASH jay pepper Allergy (Intermediate, Verified 04/29/23 10:25) Rash pepper (genus Capsicum) Adverse Reaction (Intermediate, Verified 04/29/23 10:25) rashes HPI PO LT knee exploration 04/15/23NE HPI Details 67-year-old male who presents in the office today 2 weeks status post left quad repair, which was performed on 04/15/[address] Apple. The patient reports mild pain, but states he is feeling better then before the procedure. Patient presents to the office without his ACL brace due to it rubbing on the skin causing blisters. [facility] Medical History Knee osteoarthritis Mild recurrent major depression Mixed hyperlipidemia Right shoulder pain Right knee pain Left knee pain CKD (chronic kidney disease), stage III Low back pain Multiple falls Syncope DAVINA (acute kidney injury) Obesity due to excess calories Lumbar spondylosis Proteinuria Arthritis Hypertriglyceridemia Hypertension Diabetic polyneuropathy associated with type 2 diabetes mellitus Type 2 diabetes mellitus with other diabetic kidney complication Lumbar stenosis Surgical History History of total left knee replacement (TKR) S/P evacuation of hematoma Hx of cataract surgery History of lumbar surgery Hx of eye surgery History of back surgery Family History Father Medical history unknown Mother No problems noted. Maternal Grandmother Medical history unknown Social History Household Members: None Household Members Other:: self Housing: Apartment Are you a primary career orientation teacher to a significant other at home: No Do you presently have visiting nurse or other home services: Yes (BIOINFORMATICIAN) Alcohol intake: never Patient Tobacco Use Status: Former Tobacco user Quit Date: 2 years ago Tobacco use type: Cigarette Years Smoked: 25 e-Cigarette/Vaping Use: Never Used Second Hand Smoke Exposure: No service: No Current occupational status: disabled Cognitive needs: Yes (walker) Hearing needs: No Vision needs: Yes (reading glasses) Review of Systems Const All systems reviewed & are unremarkable except as noted in HPI and below Physical Exam Vital Signs: BMI result Body Mass Index 38.0 Const General: cooperative, healthy appearing and no acute distress Resp Effort & Inspection: normal respiratory effort and able to speak in complete sentences Cardio Rate: regular rate Peripheral pulses: Peripheral pulses 2+ throughout GI Palpation (GI): Soft to palpation Skin Lesions: no lesions Rashes: no rashes Extrem Other: Left knee: Incision site is clean, dry, and intact. Minnie intact. Distally to the incision site there is an area of skin breakdown with healing eschar tissue. No signs of infection. No erythema or drainage. NVI. Assessment & Plan Assessment & Plan (1) Rupture of left quadriceps tendon: Comment: Left quad repair, 04/15/2023 NE Code(s): S76.112A - Strain of left quadriceps muscle, fascia and tendon, initial encounter Qualifiers: Encounter type: subsequent encounter Qualified Code(s): S76.112D - Strain of left quadriceps muscle, fascia and tendon, subsequent encounter (2) Status post total knee replacement, left: Code(s): Z96.652 - Presence of left artificial knee joint Plan Mr. Cabrera is a 67-year-old male who presents in the office today 2 weeks status post left quad repair, which was performed on 04/15/[address] Apple. The patient reports mild pain, but states he is feeling better then before the procedure. Patient presents to the office without his ACL brace due to it rubbing on the skin causing blisters. Upper Jay were removed and steri-stripes were applied. He was given a stockinette to assist with skin breakdown due to the bracing rubbing. He will continue to work with physical therapy. The brace was reapplied while in the office today. Follow up will be in 4 weeks, or sooner if needed. Patient Instructions: Scribed for Juani Campos PA-C by Akanksha Wooten medical assistant cardiology, on 04/29/2023 at 10:29 am, EST. Coding Level of Care Code Global (60590) Diagnoses Rupture of left quadriceps tendon, subsequent encounter S76.112D Encounter type: subsequent encounter Status post total knee replacement, left Z96.652
[2023-04-29 10:25] VITALS: BMI 38.0
== END 2023-04-29 11:08 | disposition home or self-care (01) ==
PROVIDERS: PCP Internal Medicine; Visit Provider Physician Assistant
DX: S76.112D Strain of left quadriceps muscle, fascia and tendon, subsequent encounter (principal); Z96.652 Presence of left artificial knee joint
CPT/HCPCS: 99024

== ENCOUNTER → 2023-04-29 10:06 | Outpatient (BNVA) | payer OTHER, SELFPAY | PROVIDERS: PCP Internal Medicine; Visit Provider Physician Assistant ==

== ENCOUNTER 2023-05-02 13:25 | Outpatient (AMB) | payer OTHER, SELFPAY ==
[2023-05-02 13:28] VITALS: BP 168/92; PULSE 94; O2SAT 98; BMI 33.6
--- NOTE | 2023-05-02 13:28 | MHC.PC.OV ---
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 Required: No Allergies Penicillins [PENICILLINS] Allergy (Severe, Verified 05/02/23 13:42) RASH jay pepper Allergy (Intermediate, Verified 05/02/23 13:42) Rash pepper (genus Capsicum) Adverse Reaction (Intermediate, Verified 05/02/23 13:42) rashes Medication List - Last Reconciled 05/02/23 by YANG Malin acetaminophen 650 mg (2 x 325 mg) PO Q6H PRN 30 days acetaminophen 650 mg (2 x 325 mg) PO Q6H PRN aspirin 325 mg PO BID 4 weeks atorvastatin 20 mg PO DAILY 30 days [bed rail As directed] benazepril 40 mg PO DAILY blood pressure monitor As directed celecoxib 200 mg PO BID 30 days [chair lift As directed] cyclobenzaprine 10 mg PO BEDTIME PRN 90 days docusate sodium 100 mg PO BID 30 days docusate sodium 100 mg PO BID 14 days dulaglutide (Trulicity) 1.5 mg subcut POSADAS@0900 fenofibrate nanocrystallized 145 mg PO DAILY 90 days flash glucose scanning reader ([employer]Style Tirso 14 Day [place]) As directed flash glucose sensor (FreeStyle Tirso 2 Sensor kit) As directed furosemide 20 mg PO DAILY 90 days hydralazine 10 mg PO TID 90 days icosapent ethyl (Vascepa) 2 grams (2 x 1 gram) PO BID 30 days insulin degludec (Tresiba FlexTouch U-200 insulin) 55 units (0.275 mL) subcut BEDTIME 90 days latanoprost 0.005% 1 drp ophthalmic (eye) 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 As directed] lorazepam 1 mg PO BID PRN 30 days metformin ER 500 mg PO BID 90 days oxycodone 5 mg PO Q4H PRN 7 days oxycodone 5 mg PO .every 6 hours PRN 30 days pen needle, diabetic five times a day sennosides (senna) 8.6 mg PO BEDTIME PRN 90 days sitagliptin phosphate (Januvia) 25 mg PO DAILY 90 days [sock aid As directed] walker As directed walker (Ultra-Light Rollator misc) with seat Tobacco use date assessed: 05/02/23 Fall risk assessment: No Falls in past year Last assessed Fall Risk: 05/02/23 HPI Hand Tingling After Knee Surgery HPI Details Patient is a 67-year-old male presents today for the same day visit due to bilateral hand numbness and tingling and pain from wrist down to his fingers for the past [address] Jacinto. Patient denies injury. Denies these symptoms in the past. Reports hard time holding cup. Denies any other neurological symptoms. Reports taking pain medications with no improvement. No shortness of breath or chest pain. Ambulates with a walker due to recent left knee surgery. [facility] Medical History Knee osteoarthritis Mild recurrent major depression Mixed hyperlipidemia Right shoulder pain Right knee pain Left knee pain CKD (chronic kidney disease), stage III Low back pain Multiple falls Syncope DAVINA (acute kidney injury) Obesity due to excess calories Lumbar spondylosis Proteinuria Arthritis Hypertriglyceridemia Hypertension Diabetic polyneuropathy associated with type 2 diabetes mellitus Type 2 diabetes mellitus with other diabetic kidney complication Lumbar stenosis Surgical History History of total left knee replacement (TKR) S/P evacuation of hematoma Hx of cataract surgery History of lumbar surgery Hx of eye surgery History of back surgery Family History Father Medical history unknown Mother No problems noted. Maternal Grandmother Medical history unknown Social History Household Members: None Household Members Other:: self Housing: Apartment Are you a primary child daycare worker to a significant other at home: No Do you presently have visiting nurse or other home services: Yes ([employer]) Alcohol intake: never Patient Tobacco Use Status: Former Tobacco user Quit Date: 2 years ago Tobacco use type: Cigarette Years Smoked: 25 e-Cigarette/Vaping Use: Never Used Second Hand Smoke Exposure: No service: No Current occupational status: disabled Cognitive needs: Yes (walker) Hearing needs: No Vision needs: Yes (reading glasses) Questionnaire Thrive Questionnaire Date Thrive assessed: 04/16/23 AUDIT C Alcohol Use Questionnaire (AUDIT-C) 1. How often do you have a drink containing alcohol?: Never Total Score: 0 Score Reviewed/Action Taken: No CHANDU-7 AMB Questionnaire CHANDU-7 Date CHANDU - 7 assessed: 09/11/22 Source: Developed by Drs. Jorge Hopson, Stacey Meza, Mario Garcia and colleagues, with an educational ahsan from [employer]. Review of Systems Const Denies body aches, Denies chills, Denies fever(s) and Denies headache(s) ENT Denies dizziness, Denies otalgia, Denies headache(s), Denies nasal discharge, Denies sinus pain and Denies sore throat Card Denies chest pain, Denies edema, Denies lightheadedness and Denies dyspnea Resp Denies dyspnea and Denies wheezing GI Denies abdominal pain Denies dysuria Musc Reports as per HPI, Denies myalgias, Reports arthralgias, Reports numbness and Reports tingling Skin/Breast Denies rash Neuro Denies dizziness, Denies headache(s), Reports numbness and Reports tingling Aller/Immun Denies wheezing Physical exam (Primary Care) Vital Signs: Last Vital Signs Pulse 94 05/02/23 13:28 BP 168/92 H 05/02/23 13:28 Pulse Ox 98 05/02/23 13:28 Oxygen Delivery Method Room Air 05/02/23 13:28 BMI result Body Mass Index 33.6 Tobacco/Smoking Status: Tobacco use Status Tobacco use date assessed 05/02/23 05/02/23 13:34 Patient Tobacco Use Status Former Tobacco user 05/02/23 13:34 Tobacco use type Cigarette 05/02/23 13:34 e-Cigarette/Vaping Use Never Used 05/02/23 13:34 Thrive Assessment: Date of Thrive Assessment Date Thrive assessed 04/16/23 05/02/23 13:34 Const General: cooperative and no acute distress Orientation/consciousness: patient oriented x3 HENMT Head: Yes normocephalic and Yes atraumatic Throat: Yes posterior oropharynx normal Eyes General: appearance normal, both eyes and all related structures Pupils: Equal, round and reactive pupils present Neck Neck: Yes normal visual inspection, Yes full ROM and Yes no lymphadenopathy Resp Effort & Inspection: normal respiratory effort and able to speak in complete sentences Auscultation: clear to auscultation bilaterally, no crackles, no rales, no rhonchi and no wheezes Cardio Rate: regular rate Rhythm: regular rhythm Heart sounds: S1 normal heart sound present and S2 normal heart sound present GI Auscultation: normal bowel sounds Skin General skin exam: no rashes or lesions noted Neuro Other: Ambulates with a walker Bilateral hand negative Phalen's and Tinel's Bilateral hands with mild weakness General: patient oriented x3 and CN's II-XI intact bilaterally Cranial nerves: Yes Equal, round and reactive pupils present Extrem Other: Bilateral hands normal to inspection, normal capillary refill, full range of motion, nontender, no swelling, no warmth General: Yes full ROM and No edema Assessment and Plan Assessment & Plan (1) Numbness and tingling in right hand: Code(s): R20.0 - Anesthesia of skin; R20.2 - Paresthesia of skin Plan: Will obtain bilateral hand nerve studies to rule out carpal tunnel Patient can try wrist splints to bilateral upper extremity at night Trial of prednisone daily for 5 days Blood work ordered Signs and symptoms reviewed when to notify provider or go to the emergency department (2) Numbness and tingling in left hand: Code(s): R20.0 - Anesthesia of skin; R20.2 - Paresthesia of skin Plan: Same as above Orders: Orders Vitamin D 25-OH Total Today R20.0 - Anesthesia of skin, R20.2 - Paresthesia of skin NE electromyogram (EMG) Today R20.0 - Anesthesia of skin, R20.2 - Paresthesia of skin Vitamin B12 and Folate Today R20.0 - Anesthesia of skin, R20.2 - Paresthesia of skin NE nerve conduction velocity Today R20.0 - Anesthesia of skin, R20.2 - Paresthesia of skin Medications: New prednisone 20 mg PO DAILY 5 tabs 0RF R20.0 - Anesthesia of skin, R20.2 - Paresthesia of skin Coding Level of Care Code Est Pt Level 3 (08862) Diagnoses Numbness and tingling in right hand R20.0; R20.2 Numbness and tingling in left hand R20.0; R20.2
[2023-05-02 13:55] VITALS: BP 146/90
== END 2023-05-02 14:32 | disposition home or self-care (01) ==
PROVIDERS: PCP Internal Medicine; Visit Provider Nurse Practitioner Family
DX: R20.0 Anesthesia of skin (principal); R20.2 Paresthesia of skin
CPT/HCPCS: 99213

== ENCOUNTER 2023-05-05 08:47 | Outpatient (REF) | payer OTHER, SELFPAY ==
--- NOTE | ~2023-05-05 | XR_ITS ---
EXAMINATION: XR KNEE, LEFT CLINICAL INFORMATION: Knee pain COMPARISON: 02/11/2023 TECHNIQUE: 2 views of the left knee. FINDINGS: Since the prior exam which was immediately postop, bruce have been removed and air in the joint space has resolved. The knee joint prosthesis is in good position without evidence of loosening. No associated fractures are seen. XR/XR knee LT 2V IMPRESSION: Left knee joint prosthesis in good position.
== END 2023-05-05 08:48 | disposition home or self-care (01) ==
LOC: HO.HOSX 08:47
PROVIDERS: Visit Provider Physician Assistant
DX: S76.112D Strain of left quadriceps muscle, fascia and tendon, subsequent encounter (principal); M25.562 Pain in left knee; M25.551 Pain in right hip; M54.9 Dorsalgia, unspecified; M25.552 Pain in left hip; Z79.899 Other long term (current) drug therapy; Z96.652 Presence of left artificial knee joint; W19.XXXD Unspecified fall, subsequent encounter
CPT/HCPCS: 73560; 99212

== ENCOUNTER 2023-05-05 10:08 | Outpatient (AMB) | payer OTHER, SELFPAY ==
--- NOTE | 2023-05-05 10:21 | A.OFFVIS_ITS ---
Intake Intake Visit Reasons: PO LT knee exploration 04/15/23NE Intake Note: Carlos is a 67 year old male presents today for a post operative left quad repair, DOS 04/15/23, s/p LT TKA 02/11/23. Patient reports he fell last night in the shower. He has pain in his right hip and back as well as his left hip and left knee. Allergies Penicillins [PENICILLINS] Allergy (Severe, Verified 05/05/23 10:24) RASH jay pepper Allergy (Intermediate, Verified 05/05/23 10:24) Rash pepper (genus Capsicum) Adverse Reaction (Intermediate, Verified 05/05/23 10:24) rashes Medication List - Last Reconciled 05/05/23 by Janae Dias, LAUREANO acetaminophen 650 mg (2 x 325 mg) PO Q6H PRN 30 days acetaminophen 650 mg (2 x 325 mg) PO Q6H PRN aspirin 325 mg PO BID 4 weeks atorvastatin 20 mg PO DAILY 30 days [bed rail As directed] benazepril 40 mg PO DAILY blood pressure monitor As directed celecoxib 200 mg PO BID 30 days [chair lift As directed] cyclobenzaprine 10 mg PO BEDTIME PRN 90 days docusate sodium 100 mg PO BID 30 days docusate sodium 100 mg PO BID 14 days dulaglutide (Trulicity) 1.5 mg subcut POSADAS@0900 fenofibrate nanocrystallized 145 mg PO DAILY 90 days flash glucose scanning reader ([employer] Tirso 14 Day [place]) As directed flash glucose sensor (FreeStyle Tirso 2 Sensor kit) As directed furosemide 20 mg PO DAILY 90 days hydralazine 10 mg PO TID 90 days icosapent ethyl (Vascepa) 2 grams (2 x 1 gram) PO BID 30 days insulin degludec (Tresiba FlexTouch U-200 insulin) 55 units (0.275 mL) subcut BEDTIME 90 days latanoprost 0.005% 1 drp ophthalmic (eye) 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 Apple. The patient reports he fell last night, 05/04/2023, in the shower. He claims to have pain on the right hip and back, as well as his left hip and left knee. Patient has an allergy history, as follows: -Penicillin; rash Patient is currently taking, as follows: -Acetaminophen 650 mg PO Q6H PRN -Aspirin 325 mg PO BID -Atorvastatin 20 mg PO Daily -Benazepril 40 mg PO daily -Celecoxib 200 mg PO BID -Cyclobenzaprine 10 PO Bedtime PRN -Docusate sodium 100 mg PO BID -Fenofibrate Nanocrystallized 145 mg PO Daily -Furosemide 20 mg PO Daily -Hydralazine 10 PO TID -Icosapent ethyl 2 grams PO BID -Insulin degludex 55 units subcut bedtim e -Latanoprost 0.005% 1 drop ophthalmic Be dtime -Lorazepam 1 mg PO BID PRN -Metformin ER 500 mg PO BID -Oxycodone 5 mg PO Q4H PRN -Prednisone 20 mg PO Daily -Sennosides 8.6 mg PO Bedtime PRN -Sitagliptin phosphate 25 mg PO daily -Dulaglutide 1.5 mg subcut Patient has a medical history, as follows: -Hypertension -Diabetes mellitus -Abnormal EKG -Diabetic neuropathy associated with typ e 2 diabetes -Microalbuminuria -Mild recurrent major depression -Hyperlipidemia -Chronic kidney disease, stage III -Proteinuria -Diabetic polyneuropathy associated with diabetes -Hypertriglyceridemia -Obesity -Lumbar stenosis Patient has a surgical history, as follows: -History of total left knee replacement (TKR) -S/P evacuation of hematoma; 1984 left l ower leg -Hx of cataract surgery; 2020 bilateral -History of lumbar surgery; 11/2017 & 04/2018 -Hx of eye surgery; eye lid lift done on 03/2020 -History of back surgery; last 01/2020 [facility] Medical History Knee osteoarthritis Mild recurrent major depression Mixed hyperlipidemia Right shoulder pain Right knee pain Left knee pain CKD (chronic kidney disease), stage III Low back pain Multiple falls Syncope DAVINA (acute kidney injury) Obesity due to excess calories Lumbar spondylosis Proteinuria Arthritis Hypertriglyceridemia Hypertension Diabetic polyneuropathy associated with type 2 diabetes mellitus Type 2 diabetes mellitus with other diabetic kidney complication Lumbar stenosis Surgical History History of total left knee replacement (TKR) S/P evacuation of hematoma Hx of cataract surgery History of lumbar surgery Hx of eye surgery History of back surgery Family History Father Medical history unknown Mother No problems noted. Maternal Grandmother Medical history unknown Social History Household Members: None Household Members Other:: self Housing: Apartment Are you a primary hospice patient care secretary to a significant other at home: No Do you presently have visiting nurse or other home services: Yes ([employer]) Alcohol intake: never Patient Tobacco Use Status: Former Tobacco user Quit Date: 2 years ago Tobacco use type: Cigarette Years Smoked: 25 e-Cigarette/Vaping Use: Never Used Second Hand Smoke Exposure: No service: No Current occupational status: disabled Cognitive needs: Yes (walker) Hearing needs: No Vision needs: Yes (reading glasses) Review of Systems Const All systems reviewed & are unremarkable except as noted in HPI and below Physical Exam Const General: cooperative, healthy appearing and no acute distress Resp Effort & Inspection: normal respiratory effort and able to speak in complete sentences Cardio Rate: regular rate Peripheral pulses: Peripheral pulses 2+ throughout GI Palpation (GI): Soft to palpation Skin Lesions: no lesions Rashes: no rashes Extrem Other: Left knee: Palpable deformity at the quad tendon attachment. Unable to actively flex or extend. Unable to perform straight leg raise. Extreme tenderness to palpation over all anatomical landmarks. NVI. Assessment & Plan Assessment & Plan (1) Status post total knee replacement, left: Code(s): Z96.652 - Presence of left artificial knee joint (2) Rupture of left quadriceps tendon: Comment: Left quad repair, 04/15/2023 NE; re-ruptured on 05/04/2023. Code(s): S76.112A - Strain of left quadriceps muscle, fascia and tendon, initial encounter Qualifiers: Encounter type: subsequent encounter Qualified Code(s): S76.112D - Strain of left quadriceps muscle, fascia and tendon, subsequent encounter Plan Mr. Cabrera is a 67-year-old male who presents in the office today 20 days status post left quad repair, which was performed on 04/15/[address] Apple. The patient reports he fell last night, 05/04/2023, in the shower. He claims to have pain on the right hip and back, as well as his left hip and left knee. Unfortunately, it appears that he has retorn the repair. Patient has an allergy history, as follows: -Penicillin; rash Patient is currently taking, as follows: -Acetaminophen 650 mg PO Q6H PRN -Aspirin 325 mg PO BID -Atorvastatin 20 mg PO Daily -Benazepril 40 mg PO daily -Celecoxib 200 mg PO BID -Cyclobenzaprine 10 PO Bedtime PRN -Docusate sodium 100 mg PO BID -Fenofibrate Nanocrystallized 145 mg PO Daily -Furosemide 20 mg PO Daily -Hydralazine 10 PO TID -Icosapent ethyl 2 grams PO BID -Insulin degludex 55 units subcut bedtime -Latanoprost 0.005% 1 drop ophthalmic Bedtime -Lorazepam 1 mg PO BID PRN -Metformin ER 500 mg PO BID -Oxycodone 5 mg PO Q4H PRN -Prednisone 20 mg PO Daily -Sennosides 8.6 mg PO Bedtime PRN -Sitagliptin phosphate 25 mg PO daily -Dulaglutide 1.5 mg subcut Patient has a medical history, as follows: -Hypertension -Diabetes mellitus -Abnormal EKG -Diabetic neuropathy associated with type 2 diabetes -Microalbuminuria -Mild recurrent major depression -Hyperlipidemia -Chronic kidney disease, stage III -Proteinuria -Diabetic polyneuropathy associated with diabetes -Hypertriglyceridemia -Obesity -Lumbar stenosis Patient has a surgical history, as follows: -History of total left knee replacement (TKR) -S/P evacuation of hematoma; 1984 left lower leg -Hx of cataract surgery; 2020 bilateral -History of lumbar surgery; 11/2017 & 04/2018 -Hx of eye surgery; eye lid lift done on 03/2020 -History of back surgery; last 01/2020 I discussed in detail the procedure and what to expect pre and post operatively. We discussed the risks, benefits and alternatives to the surgery as well as the rehabilitation course. The risks; which include, but are not limited to infection, bleeding, nerve injury, ongoing pain, swelling, and stiffness, perioperative risk of injury to bones and soft tissues, and blood clots. I have answered all questions and with their understanding they have consented to move forward with a left knee quad tendon repair to be performed by Dr. Wesley Apple. Follow up will be at the post operative appointment, or sooner if needed. X-rays of the left knee obtained while in the office today and reviewed by me, Juani Campos PA-C, revealed no acute fracture or dislocation. Orthopedic hardware intact. Orders: Orders XR knee LT 2V Today M25.569 - Pain in unspecified knee Coding Level of Care Code Global (67646) Diagnoses Status post total knee replacement, left Z96.652 Rupture of left quadriceps tendon, subsequent encounter S76.112D Encounter type: subsequent encounter
== END 2023-05-05 11:10 | disposition home or self-care (01) ==
PROVIDERS: PCP Internal Medicine; Visit Provider Physician Assistant
DX: Z96.652 Presence of left artificial knee joint (principal); S76.112D Strain of left quadriceps muscle, fascia and tendon, subsequent encounter
CPT/HCPCS: 99024

== ENCOUNTER → 2023-05-07 11:34 | Outpatient (BNV) | payer OTHER, SELFPAY | PROVIDERS: PCP Internal Medicine; Visit Provider Orthopaedic Surgery | DX: S76.112A Strain of left quadriceps muscle, fascia and tendon, initial encounter (principal) | CPT/HCPCS: 27386; 99024 ==

== ENCOUNTER 2023-05-07 16:29 | Inpatient (IN) | payer OTHER, SELFPAY ==
--- NOTE | 2023-05-06 10:05 | P.CONAN_ITS ---
Documented by User: Celsa Brown NP 05/06/23 10:09 HPI - Anesthesia Eval Consult details Narrative: 67yo M for Left Quadricep Tendon Repair s/p Left Knee exploration, Quadricep Repair 04/15/23 with spinal s/p L TKA 02/2023 with spinal and block - cardiac w/u and clearance prior Anesthesia Pre-Procedure Meds Is the patient on any of the following meds?: Dulaglutide (Trulicity) (Last dose 04/27/23) PMF Active Problems Active Problems: All Active Problems (Updated 05/05/23 @ 10:58 by Akanksha Wooten) Numbness and tingling in right hand (Acute) Numbness and tingling in left hand (Acute) Rupture of left quadriceps tendon (Acute) Essential hypertension (Acute) Diabetes mellitus (Acute) Status post total knee replacement, left (Acute) Preoperative cardiovascular examination (Acute) Abnormal EKG (Acute) Orthostatic hypotension (Acute) Pre-op evaluation (Acute) Arthritis of both knees (Acute) Diabetic neuropathy associated with type 2 diabetes mellitus (Acute) Microalbuminuria (Acute) Osteoarthritis of left knee (Acute) Knee osteoarthritis (Acute) Mild recurrent major depression (Acute) Mixed hyperlipidemia (Acute) Right shoulder pain (Acute) Right knee pain (Acute) Left knee pain (Acute) CKD (chronic kidney disease), stage III (Acute) Proteinuria (Acute) Diabetic polyneuropathy associated with type 2 diabetes mellitus (Acute) Hypertriglyceridemia (Acute) Obesity due to excess calories (Acute) Lumbar stenosis (Acute) Past Medical History Medical History Knee osteoarthritis Mild recurrent major depression Mixed hyperlipidemia Right shoulder pain Right knee pain Left knee pain CKD (chronic kidney disease), stage III Low back pain Multiple falls Syncope DAVINA (acute kidney injury) Obesity due to excess calories Lumbar spondylosis Proteinuria Arthritis Hypertriglyceridemia Hypertension Diabetic polyneuropathy associated with type 2 diabetes mellitus Type 2 diabetes mellitus with other diabetic kidney complication Lumbar stenosis Family History Family History Father Medical history unknown Mother No problems noted. Maternal Grandmother Medical history unknown Family history of problems with anesthesia: No Surgical History Surgical History History of surgery on lower extremity History of total left knee replacement (TKR) S/P evacuation of hematoma Hx of cataract surgery History of lumbar surgery Hx of eye surgery History of back surgery History of Problems with Anesthesia: No Social History Social History Household Members: None Household Members Other:: self Housing: Apartment Are you a primary child care centre director to a significant other at home: No Do you presently have visiting nurse or other home services: Yes ([facility]) Alcohol intake: never Patient Tobacco Use Status: Former Tobacco user Quit Date: 2 yrs ago Tobacco use type: Cigarette Years Smoked: 25 e-Cigarette/Vaping Use: Never Used Second Hand Smoke Exposure: No Use of substances other than those prescribed or required for medical reasons: No Are you DNR?: No Advance Directives: No Advance Directives Information Provided: Yes service: No Current occupational status: disabled Cognitive needs: Yes (walker) Hearing needs: No Vision needs: Yes (reading glasses) Meds Allergies Allergy/AdvReac Type Severity Reaction Status Date / Time Penicillins [PENICILLINS] Allergy Severe RASH Verified 05/07/23 12:51 jay pepper Allergy Intermediate Rash Verified 05/07/23 12:51 pepper (genus Capsicum) AdvReac Intermediate rashes Verified 05/07/23 12:51 Home Medications Medication Instructions Recorded Confirmed Last Taken Type latanoprost 0.005 % eye drops 1 drp ophthalmic (eye) BEDTIME 11/07/20 05/07/23 02/10/23 History dulaglutide 1.5 mg/0.5 mL 1.5 mg subcut POSADAS@0900 02/11/23 05/07/23 02/09/23 History subcutaneous pen injector (Trulicity) Exam Exam Date and Time: May 06, 2023 1005 Pertinent Lab Results Pertinent Lab Results: Laboratory Tests 04/17/23 06:17 WBC 10.6 Hgb 12.5 L Hct 39.3 L Plt Count 174 Sodium 141 Potassium 4.5 Chloride 108 Carbon Dioxide 24 BUN 14 Creatinine 0.82 Narrative Narrative: EKG 01/2023 Vent. Rate : 089 BPM ? ? Atrial Rate : 089 BPM ?? P-R Int : 152 ms? QRS Dur : 092 ms ? ? QT Int : 368 ms ? ? ? P-R-T Axes : 045 -19 060 degrees ?? QTc Int : 447 ms ? Normal sinus rhythm Inferior infarct , age undetermined Abnormal ECG When compared with ECG of 07-NOV-2020 09:57, No significant change was found ECHO 01/2023 Conclusions: - 1. Normal LV ejection fraction of 60 65% with grade 1 diastolic dysfunction? 2. Limited visualization cardiac valves with normal cardiac? ? ? valvular Doppler ? 3. Upper limits of normal ascending aortic size? NM celia perf SPECT rest & str 01/2023 Impression: ? 1.? Myocardial perfusion imaging study shows likely normal myocardial perfusion 2.? Gated LVEF is 66% 3. Transient ischemic dilatation not present ? EKG is Nondiagnostic for ischemia Assessment and Plan Assessment Anesthesia Assessment: Chart Reviewed Final Anesthetic Review Family History of Problems with Anesthesia: No History of Problems with Anesthesia: No Documented by User: Alicia Conklin MD 05/07/23 14:26 HPI - Anesthesia Eval Consult details Narrative: 67yo M for Left Quadricep Tendon Repair s/p Left Knee exploration, Quadricep Repair 04/15/23 with spinal s/p L TKA 02/2023 with spinal and block - cardiac w/u and clearance prior, pt on trulicity , not taken for 10 days per patient report Anesthesia Pre-Procedure Meds If Yes to any meds - educate patient: Pt education - possibility of cancelled proc at provider's discretion PMFSH Past Medical History Medical History Knee osteoarthritis Mild recurrent major depression Mixed hyperlipidemia Right shoulder pain Right knee pain Left knee pain CKD (chronic kidney disease), stage III Low back pain Multiple falls Syncope DAVINA (acute kidney injury) Obesity due to excess calories Lumbar spondylosis Proteinuria Arthritis Hypertriglyceridemia Hypertension Diabetic polyneuropathy associated with type 2 diabetes mellitus Type 2 diabetes mellitus with other diabetic kidney complication Lumbar stenosis Family History Family History Father Medical history unknown Mother No problems noted. Maternal Grandmother Medical history unknown Surgical History Surgical History History of surgery on lower extremity History of total left knee replacement (TKR) S/P evacuation of hematoma Hx of cataract surgery History of lumbar surgery Hx of eye surgery History of back surgery Social History Social History Household Members: None Household Members Other:: self Housing: Apartment Are you a primary child care centre director to a significant other at home: No Do you presently have visiting nurse or other home services: Yes ([facility]) Alcohol intake: never Patient Tobacco Use Status: Former Tobacco user Quit Date: 2 yrs ago Tobacco use type: Cigarette Years Smoked: 25 e-Cigarette/Vaping Use: Never Used Second Hand Smoke Exposure: No Use of substances other than those prescribed or required for medical reasons: No Are you DNR?: No Advance Directives: No Advance Directives Information Provided: Yes service: No Current occupational status: disabled Cognitive needs: Yes (walker) Hearing needs: No Vision needs: Yes (reading glasses) Meds Allergies Allergy/AdvReac Type Severity Reaction Status Date / Time Penicillins [PENICILLINS] Allergy Severe RASH Verified 05/07/23 12:51 jay pepper Allergy Intermediate Rash Verified 05/07/23 12:51 pepper (genus Capsicum) AdvReac Intermediate rashes Verified 05/07/23 12:51 Home Medications Medication Instructions Recorded Confirmed Last Taken Type latanoprost 0.005 % eye drops 1 drp ophthalmic (eye) BEDTIME 11/07/20 05/07/23 02/10/23 History dulaglutide 1.5 mg/0.5 mL 1.5 mg subcut POSADAS@0900 02/11/23 05/07/23 02/09/23 History subcutaneous pen injector (Trulicity) Exam Airway Mallampati Class: III TM Dist: >3cm Neck ROM: Limited Partial: Upper and Lower Heart: rrr Lungs: cta Assessment and Plan Assessment Anesthesia Assessment: Anesthesia Plan Discussed Final Anesthetic Review NPO: Yes ASA Class: III and Emergency Final Preanesthetic Review: No Changes in Pt Med Stat, Meds/Allgs Chart Reviewed, Consent Obtained/Reviewed and Anes Risks/Benef Reviewed Patient Risk: Intermediate Procedure Risk: Intermediate Anesthetic Plan Anesthetic Plan: GA, Regional Block and Agree w/ Assess. and Plan Disposition: Standard PACU
[2023-05-07] VITALS (7 sets, daily range): BP systolic 100–181; BP diastolic 56–107; PULSE 79–95; RESP 16–18; TEMP 36.2–36.8; O2SAT 98–99; BMI 36.5
[2023-05-07 13:13] LABS: Glucose, Whole Blood 152 mg/dL (60-115)
[2023-05-07] MEDS: Lactated Ringers 1,000 ML 100 ML IVCONT ×2 (13:14→18:05)
[2023-05-07] MEDS: Acetaminophen 1,000 MG/100 ML PIGGYBACK 400 MG IV ×2 (13:15→19:24)
--- NOTE | 2023-05-07 13:19 | PC.NURSE ---
pt states he has had tingling of both hands since after his fall on friday. no other symptoms like blurry or double vision or other areas of tingling or numbness. wasn't seen in er after fall.
--- NOTE | 2023-05-07 14:22 | PC.NURSE ---
Care transitioned to Bobbi (PACU)
--- NOTE | 2023-05-07 16:24 | PM.OP ---
Brief Operative Note Date of Service: 05/07/23 Pre-op diagnosis: Left quad tear Post-op diagnosis: same Procedure: Left quad repair Implants: none Surgeon: Wesley Apple MD Anesthesia: regional and spinal Was an Membership Sales Representative used for this Procedure?: Yes Membership Sales Representative: Juani Campos Estimated blood loss (mL): 100 IV fluids (mL): 750 Pathology: none sent Condition: stable Disposition: PACU
--- NOTE | 2023-05-07 17:01 | PHA.MEDREC ---
Pharmacy Consult ? Medication Reconciliation Pharmacy has reviewed the medication reconciliation completed by
[2023-05-07] MEDS: hydrALAZINE HCl 10 MG TABLET PO ×2 (18:05→20:35)
--- NOTE | 2023-05-07 18:43 | P.CONHOSP_ITS ---
History of Present Illness Data of Consult Service Date: 05/07/23 Primary Care Provider: Tram Álvarez MD [facility] Reason for consult: Routine medical management Patient is a 67-year-old male with a PMH significant for HTN, HLD, insulin- dependent diabetes type 2 with polyneuropathy, CKD 3, lumbar stenosis, and mood disorder who is admitted to the hospital under orthopedics for a left quadriceps repair. POD0. Hospitalist consult for medical management. Patient initially had left quad repair on 05/04/2023 but slipped in the shower on 05/04/2023 and retore the repair. Patient's nerve block still in place and patient reports no pain or feeling below his waist. He is able to move his lower extremities. Pedal pulses intact. Patient has no acute medical complaints at this time. Denies chest pain/pressure, palpitations. No shortness of breath. Denies headache. No fever, chills, nausea, vomiting, abdominal pain. Patient is mildly hypertensive at 153/68, with otherwise stable vital signs, satting at 98% on RA. Review of Systems Review of Systems: Patient has no acute medical complaints at this time [facility] Medical History Knee osteoarthritis Mild recurrent major depression Mixed hyperlipidemia Right shoulder pain Right knee pain Left knee pain CKD (chronic kidney disease), stage III Low back pain Multiple falls Syncope DAVINA (acute kidney injury) Obesity due to excess calories Lumbar spondylosis Proteinuria Arthritis Hypertriglyceridemia Hypertension Diabetic polyneuropathy associated with type 2 diabetes mellitus Type 2 diabetes mellitus with other diabetic kidney complication Lumbar stenosis Family History Father Medical history unknown Mother No problems noted. Maternal Grandmother Medical history unknown Surgical History History of surgery on lower extremity History of total left knee replacement (TKR) S/P evacuation of hematoma Hx of cataract surgery History of lumbar surgery Hx of eye surgery History of back surgery Social History Household Members: None Household Members Other:: self Housing: Apartment Are you a primary physician assistant primary care to a significant other at home: No Do you presently have visiting nurse or other home services: No Alcohol intake: never Patient Tobacco Use Status: Former Tobacco user Quit Date: 2 yrs ago Tobacco use type: Cigarette Years Smoked: 25 e-Cigarette/Vaping Use: Never Used Second Hand Smoke Exposure: No Use of substances other than those prescribed or required for medical reasons: No Are you DNR?: No Advance Directives: No Advance Directives Information Provided: Yes Do you have thoughts of harming others: None Do you have a plan to hurt others: No Plan Recently lost weight without trying: No Nutrition Risks: No Nutritional Risk Poor oral hygiene: No service: No Current occupational status: disabled Cognitive needs: Yes (walker) Hearing needs: No Vision needs: Yes (reading glasses) Meds Allergies Allergy/AdvReac Type Severity Reaction Status Date / Time Penicillins [PENICILLINS] Allergy Severe RASH Verified 05/07/23 12:51 jay pepper Allergy Intermediate Rash Verified 05/07/23 12:51 pepper (genus Capsicum) AdvReac Intermediate rashes Verified 05/07/23 12:51 Active Medications: Current Medications Atorvastatin Calcium (Atorvastatin Calcium 20 Mg Tablet) 20 mg PO DAILY [facility] Celecoxib (Celecoxib 200 Mg Capsule) 200 mg PO BID [facility] Cyclobenzaprine HCl (Cyclobenzaprine Hcl 10 Mg Tablet) 10 mg PO BEDTIME PRN PRN Reason: muscle spasm Docusate Sodium (Docusate Sodium 100 Mg Capsule) 100 mg PO BID [facility] Fenofibrate (Fenofibrate 160 Mg Tablet) 160 mg PO DAILY [facility] Furosemide (Furosemide 20 Mg Tablet) 20 mg PO DAILY IMTIAZ; Protocol Hydralazine HCl (Hydralazine Hcl 10 Mg Tablet) 10 mg PO TID IMTIAZ; Protocol Last Admin: 05/07/23 18:05 Dose: 10 mg Hydromorphone HCl (Hydromorphone Hcl 0.5 Mg/0.5 Ml Syringe) 0.5 mg IVPUSH Q4H PRN; Protocol PRN Reason: Pain, Severe (Pain Scale 7-10) Lactated Ringer's (Lr) 1,000 mls @ 100 mls/hr IVCONT .Q10H [facility] Last Admin: 05/07/23 18:05 Dose: 100 mls/hr Lactated Ringer's (Lr) 1,000 mls @ 100 mls/hr IVCONT .Q10H [facility] Cefazolin Sodium/Dextrose (Ancef) 2 gm in 50 mls @ 100 mls/hr IV POSTOP ONE Stop: 05/07/23 21:29 Acetaminophen (Ofirmev) 1,000 mg in 100 mls @ 400 mls/hr IV Q6H [facility] Stop: 05/08/23 13:14 Insulin Glargine (Insulin Glargine,Hum.Rec.Anlog 100 Unit/Ml 10 Ml Vial) 38 unit SUBCUT BEDTIME [facility] Latanoprost (Latanoprost 0.005 % Ophth Maria Eugenia 2.5 Ml Drops) 1 drop EYE-BOTH BEDTIME [facility] Lisinopril (Lisinopril 40 Mg Tablet) 40 mg PO DAILY [facility] Lorazepam (Lorazepam 1 Mg Tablet) 1 mg PO BID PRN PRN Reason: Anxiety Metformin HCl (Metformin Hcl Er 500 Mg Tab.Er.24h) 500 mg PO BID [facility] Non-Formulary Medication (Dulaglutide [Trulicity]) 1.5 mg SUBCUT POSADAS@0900 [facility] Non-Formulary Medication (Icosapent Ethyl [Vascepa]) 2 gm PO BID [facility] Ondansetron HCl (Ondansetron Hcl 4 Mg/2 Ml Vial) 4 mg IVPUSH Q8H PRN PRN Reason: Nausea and Vomiting Oxycodone HCl (Oxycodone Hcl Immed Release 5 Mg Tablet) 10 mg PO Q4H PRN PRN Reason: Pain, Moderate(Pain Scale 4-6) Oxycodone HCl (Oxycodone Hcl Er 10 Mg Tab.Er.12h) 10 mg PO BID [facility] Senna (Sennosides 8.6 Mg Tablet) 8.6 mg PO BEDTIME PRN PRN Reason: constipation Sitagliptin Phosphate (Sitagliptin Phosphate 25 Mg Tablet) 25 mg PO DAILY [facility] Sodium Chloride (0.9 % Sodium Chloride Flush 3 Ml Syringe) 3 ml IVFLUSH QSHIFT [facility] Home Medications Medication Instructions Recorded Confirmed Last Taken Type latanoprost 0.005 % eye drops 1 drp ophthalmic (eye) BEDTIME 11/07/20 05/07/23 02/10/23 History dulaglutide 1.5 mg/0.5 mL 1.5 mg subcut POSADAS@0900 02/11/23 05/07/23 02/09/23 History subcutaneous pen injector (Trulicity) Physical Exam Vital Signs and Narrative: Vital Signs: Last Vital Signs Temp 97.2 F 05/07/23 18:23 Pulse 81 11/01/23 18:23 Resp 18 05/07/23 18:23 BP 153/68 H 05/07/23 18:23 Pulse Ox 98 05/07/23 18:23 O2 Del Method Room Air 05/07/23 18:23 O2 Flow Rate 2 05/07/23 16:40 BMI result Body Mass Index 36.5 General: AOx3, no acute distress Resp: CTA bilaterally CVS: S1, S2, RRR GI: +BS, NT, no distention Skin: No rash Neuro: Cranial nerves II-XII grossly intact bilaterally. Motor grossly intact bilaterally Extremities: No edema. Left knee with wound VAC in place, wrapped in clean dressing. Psych: Appropriate affect Results Labs Labs: Laboratory Results - last 24 hr 05/07/23 13:04 POC Glucose 152 H Assessment and Plan (1) Rupture of left quadriceps tendon: Qualifiers: Encounter type: subsequent encounter Qualified Code(s): S76.112D - Strain of left quadriceps muscle, fascia and tendon, subsequent encounter Status: Acute Plan Patient is a 67-year-old male with a PMH significant for HTN, HLD, insulin- dependent diabetes type 2 with polyneuropathy, CKD 3, lumbar stenosis, and mood disorder who is admitted to the hospital under orthopedics for a left quadriceps repair. POD0. Hospitalist consult for medical management. Left quadriceps tear repair Pt with no pain at this time, nerve block still in place Plan as per Orthopedic surgery HTN Will continue home meds HLD Continue statin, fenofibrate Insulin-dependent diabetes type 2 Will hold metformin, Trulicity Continue Januvia Placed on sliding scale insulin, Lantus Diabetic diet CKD 3 Check BMP tomorrow Mood disorder Continue home meds Thank you for allowing us to participate in the care of this patient. Will continue following for now. Please let us know if there are any acute complaints or questions. Attending: Dr. Naranjo
[2023-05-07 19:51] LABS: Glucose, Whole Blood 165 mg/dL (60-115)
[2023-05-07] MEDS: Celecoxib 200 MG CAPSULE PO (20:34)
[2023-05-07] MEDS: Insulin Lispro 100 UNIT/ML 3 ML VIAL SUBCUT (20:35)
[2023-05-07] MEDS: oxyCODONE HCl ER 10 MG TAB.ER.12H PO (20:35)
[2023-05-07] MEDS: Insulin Glargine,Hum.rec.anlog 100 UNIT/ML 10 ML VIAL 38 UNIT SUBCUT (20:35)
[2023-05-07] MEDS: Docusate Sodium 100 MG CAPSULE PO (20:35)
[2023-05-07] MEDS: ceFAZolin Sodium/Dextrose,Iso 2 GM/50 ML PIGGYBACK IV (20:50)
[2023-05-07] MEDS: HYDROmorphone HCl 0.5 MG/0.5 ML SYRINGE IVPUSH (23:57)
[2023-05-08] MEDS: Acetaminophen 1,000 MG/100 ML PIGGYBACK 400 MG IV ×2 (01:13→06:33)
[2023-05-08] MEDS: oxyCODONE HCl Immed Release 5 MG TABLET 10 MG PO ×3 (01:18→23:37)
[2023-05-08 03:58] VITALS: BP 175/83; PULSE 83; RESP 16; TEMP 36.1; O2SAT 96
[2023-05-08] MEDS: Lactated Ringers 1,000 ML 100 ML IVCONT (04:10)
[2023-05-08] MEDS: HYDROmorphone HCl 0.5 MG/0.5 ML SYRINGE IVPUSH ×4 (04:10→17:30)
[2023-05-08 06:14] LABS: MANUAL DIFF FLAG NO
[2023-05-08 06:20] LABS: Basophils Absolute Auto 0.1 X10*3/uL (0.0-0.2); Basophils Percent Auto 0.7 % (0-2); Eosinophils Absolute Auto 0.6 X10*3/uL (0.0-0.4); Eosinophils Percent Auto 5.2 % (0-4); Hematocrit 34.7 % (42.0-52.0); Hemoglobin 10.9 g/dl (14.0-18.0); Imm Gran Abs Auto 0.04 X10*3/uL (0.00-0.03); Imm Gran Pct Auto 0.4 % (0.0-0.4); Lymphocytes Absolute Auto 2.8 X10*3/uL (1.2-4.9); Lymphocytes Percent Auto 24.8 % (20-40); Mean Corpuscular HGB Conc 31.4 g/dl (31.0-36.0); Mean Corpuscular Hemoglobin 27.2 pg (27.0-33.0); Mean Corpuscular Volume 86.5 fL (80.0-98.0); Mean Platelet Volume 12.3 fL (9.4-12.4); Monocytes Absolute Auto 0.9 X10*3/uL (0.1-1.2); Monocytes Percent Auto 7.8 % (2-11); Neutrophils Absolute Auto 6.8 x10*3/uL (2.0-8.3); Neutrophils Percent Auto 61.1 % (45-73); Platelet Count 201 X10*3/uL (160-400); Red Blood Count 4.01 X10*6/uL (4.60-5.80); Red Cell Distribution Width 17.1 % (11.0-16.0); White Blood Count 11.1 X10*3/uL (4.8-10.8)
[2023-05-08 06:35] LABS: Anion Gap 13 (12-20); Blood Urea Nitrogen 24 mg/dL (9-16); Calcium 8.5 mg/dL (8.4-10.2); Carbon Dioxide 23 mmol/L (22-29); Chloride 112 mmol/L (96-108); Creatinine Clr Calc Pharmacy 90.2; Estimated Glomerular Filt Rate > 60; Glucose Fasting 112 mg/dL (60-99); Potassium 4.5 mmol/L (3.3-5.1); Sodium 143 mmol/L (135-145)
[2023-05-08 07:26] VITALS: BP 180/87; PULSE 73; RESP 18; TEMP 36.1; O2SAT 98
[2023-05-08 07:30] LABS: Glucose, Whole Blood 104 mg/dL (60-115)
[2023-05-08] MEDS: lisinopriL 40 MG TABLET PO (07:37)
[2023-05-08] MEDS: Celecoxib 200 MG CAPSULE PO ×2 (07:37→20:36)
[2023-05-08] MEDS: Fenofibrate 160 MG TABLET PO (07:38)
[2023-05-08] MEDS: oxyCODONE HCl ER 10 MG TAB.ER.12H PO ×2 (07:38→20:36)
[2023-05-08] MEDS: Furosemide 20 MG TABLET PO (07:38)
[2023-05-08] MEDS: Atorvastatin Calcium 20 MG TABLET PO (07:38)
[2023-05-08] MEDS: hydrALAZINE HCl 10 MG TABLET PO (07:38)
[2023-05-08] MEDS: SITagliptin Phosphate 25 MG TABLET PO (07:38)
[2023-05-08] MEDS: Docusate Sodium 100 MG CAPSULE PO ×2 (07:38→20:36)
[2023-05-08] MEDS: 0.9 % Sodium Chloride Flush 3 ML SYRINGE IVFLUSH ×3 (07:39→20:38)
[2023-05-08 08:57] VITALS: BP 180/87; PULSE 73; O2SAT 98
--- NOTE | 2023-05-08 09:05 | PM.PNORT ---
Subjective Subjective Date of Service: 05/08/23 Interval history: POD1 s/p quad tendon repair left knee Patient is resting in bed comfortably No overnight events Pain is managed No additional complaints Prevena in place with appropriate suctioning Physical Exam Vital Signs: Vital Signs: Last Vital Signs Temp 96.9 F 05/08/23 07:26 Pulse 73 05/08/23 07:26 Resp 18 05/08/23 07:26 BP 180/87 H 05/08/23 07:26 Pulse Ox 98 05/08/23 07:26 O2 Del Method Room Air 05/08/23 07:26 O2 Flow Rate 2 05/07/23 16:40 BMI result Body Mass Index 36.5 Const: General: cooperative, healthy appearing and no acute distress Resp: Effort & Inspection: normal respiratory effort and able to speak in complete sentences Cardio: Rate: regular rate Peripheral pulses: Peripheral pulses 2+ throughout GI: Palpation (GI): Soft to palpation Skin: Lesions: no lesions Rashes: no rashes Extrem: Other: Left knee Prevena is intact with appropriate suctioning. Able to dorsi/plantar flex. Calf is supple and nontender. Sensation intact. Pedal pulse intact. Procedures Date of Service Date of Service: 05/08/23 Progress Note: A&P Assessment and plan (1) Rupture of left quadriceps tendon: Status: Acute Assessment and Plan: Continue pain mgmnt Begin Lovenox for dvt ppx begin PT for left Quad tenon repair - WBAT in brace locked in extension Dispo planning-Pending PT eval, pain mgmnt Time Spent With Patient Time: Total time managing care of this patient today ____ minutes. Quality Stroke Does the patient have a stroke diagnosis?: No VTE Prior VTE?: No VTE Risk Level:: Medical - moderate - high VTE Device Contraindication: N/A - Device Ordered VTE Drug Contraindication: N/A - Med Ordered
[2023-05-08 11:36] LABS: Glucose, Whole Blood 161 mg/dL (60-115)
[2023-05-08] MEDS: Insulin Lispro 100 UNIT/ML 3 ML VIAL SUBCUT ×2 (12:13→16:34)
--- NOTE | 2023-05-08 14:03 | MHC.CM.PN ---
IMM 05/08/23 s/p Quad tear s/p surgical intervention. He lives by alone with [facility] services. [facility] provides [facility]. Patient uses a walker. PT eval recommendation is STR. Patient's preference for dispo is Home with services. DP home with PT though [facility] vs Home health referral. [facility] care transitions coordinator notified of need for therapy. Patientwill arrange for transport home.
--- NOTE | 2023-05-08 14:23 | HO.POSTANES ---
Post Anesthesia Evaluation Post Anesthesia Evaluation Date of Service: 05/08/23 Vital Signs: Vital Signs Temp Pulse Resp BP Pulse Ox O2 Del Method 05/08/23 08:57 73 180/87 H 98 05/08/23 07:26 96.9 F 73 18 180/87 H 98 Room Air 05/08/23 03:58 96.9 F 83 16 175/83 H 96 Room Air Anesthesia: General Mental Status: Awake Pain Control: Satisfactory Nausea/Vomiting: None Hydration: Adequate Anesthesia-Related Issues: No Anes. Related Issues
--- NOTE | 2023-05-08 14:50 | P.PNIM_ITS ---
Subjective Subjective Date of Service: 05/08/23 Interval History: Good pain control left leg, complaining of bilateral hand numbness and tingling, denies neck discomfort, no weakness upper or lower extremity, denies headache, lightheadedness or dizziness . Review of Systems All other system reviewed and negative Physical Exam 2 Vital Signs: Vital Signs: Last Vital Signs Temp 96.9 F 05/08/23 07:26 Pulse 73 05/08/23 08:57 Resp 18 05/08/23 07:26 BP 180/87 H 05/08/23 08:57 Pulse Ox 98 05/08/23 08:57 O2 Del Method Room Air 05/08/23 07:26 O2 Flow Rate 2 05/07/23 16:40 BMI result Body Mass Index 36.5 Const: Other: General awake alert x3, sitting comfortably, in no acute distress. Neck supple, no JVD. CVS regular rate rhythm, Respiratory lungs clear to auscultation, no respiratory distress, no wheeze, no rhonchi. Gastrointestinal abdomen soft, nontender, bowel sounds audible, no guarding , no rigidity. Extremities no edema. Left knee brace Neuro speech clear, normal strength upper extremity, numbness tingling extending from wrist to all fingers Skin no rash Psych appropriate affect Objective Data Active Medications Atorvastatin Calcium (Atorvastatin Calcium 20 Mg Tablet) 20 mg PO DAILY [facility] Last Admin: 05/08/23 07:38 Dose: 20 mg Documented By: MONIKA Celecoxib (Celecoxib 200 Mg Capsule) 200 mg PO BID [facility] Last Admin: 05/08/23 07:37 Dose: 200 mg Documented By: MONIKA Cyclobenzaprine HCl (Cyclobenzaprine Hcl 10 Mg Tablet) 10 mg PO BEDTIME PRN PRN Reason: muscle spasm Dextrose (Dextrose 50 % 25 Gm/50 Ml Syringe) 25 gm IVPUSH Q15M PRN; Protocol PRN Reason: per Hypoglycemia Standing Ord. Docusate Sodium (Docusate Sodium 100 Mg Capsule) 100 mg PO BID [facility] Last Admin: 05/08/23 07:38 Dose: 100 mg Documented By: MONIKA Enoxaparin Sodium (Enoxaparin Sodium 40 Mg/0.4 Ml Syringe) 40 mg SUBCUT Q24H [facility] Fenofibrate (Fenofibrate 160 Mg Tablet) 160 mg PO DAILY [facility] Last Admin: 05/08/23 07:38 Dose: 160 mg Documented By: MONIKA Furosemide (Furosemide 20 Mg Tablet) 20 mg PO DAILY [facility]; Protocol Last Admin: 05/08/23 07:38 Dose: 20 mg Documented By: MONIKA Glucose (Glucose Gel 15 Gm Gel..Gram.) 15 gm PO Q15M PRN; Protocol PRN Reason: per Hypoglycemia Standing Ord. Hydralazine HCl (Hydralazine Hcl 10 Mg Tablet) 10 mg PO TID [facility]; Protocol Last Admin: 05/08/23 07:38 Dose: 10 mg Documented By: MONIKA Hydromorphone HCl (Hydromorphone Hcl 0.5 Mg/0.5 Ml Syringe) 0.5 mg IVPUSH Q4H PRN; Protocol PRN Reason: Pain, Severe (Pain Scale 7-10) Last Admin: 05/08/23 13:06 Dose: 0.5 mg Documented By: MONIKA Insulin Glargine (Insulin Glargine,Hum.Rec.Anlog 100 Unit/Ml 10 Ml Vial) 38 unit SUBCUT BEDTIME [facility] Last Admin: 05/07/23 20:35 Dose: 38 unit Documented By: MARCOS Insulin Human Lispro (Insulin Lispro 100 Unit/Ml 3 Ml Vial) 0 unit SUBCUT QIDACHS [facility]; Protocol Last Admin: 05/08/23 12:13 Dose: 2 unit Documented By: MONIKA Latanoprost (Latanoprost 0.005 % Ophth Maria Eugenia 2.5 Ml Drops) 1 drop EYE-BOTH BEDTIME [facility] Last Admin: 05/07/23 21:58 Dose: Not Given Documented By: MARCOS Non-Admin Reason: Med Not Available Lisinopril (Lisinopril 40 Mg Tablet) 40 mg PO DAILY [facility] Last Admin: 05/08/23 07:37 Dose: 40 mg Documented By: MONIKA Lorazepam (Lorazepam 1 Mg Tablet) 1 mg PO BID PRN PRN Reason: Anxiety Non-Formulary Medication (Icosapent Ethyl [Vascepa]) 2 gm PO BID [facility] Ondansetron HCl (Ondansetron Hcl 4 Mg/2 Ml Vial) 4 mg IVPUSH Q8H PRN PRN Reason: Nausea and Vomiting Oxycodone HCl (Oxycodone Hcl Immed Release 5 Mg Tablet) 10 mg PO Q4H PRN PRN Reason: Pain, Moderate(Pain Scale 4-6) Last Admin: 05/08/23 01:18 Dose: 10 mg Documented By: MARCOS Oxycodone HCl (Oxycodone Hcl Er 10 Mg Tab.Er.12h) 10 mg PO BID [facility] Last Admin: 05/08/23 07:38 Dose: 10 mg Documented By: MONIKA Senna (Sennosides 8.6 Mg Tablet) 8.6 mg PO BEDTIME PRN PRN Reason: constipation Sitagliptin Phosphate (Sitagliptin Phosphate 25 Mg Tablet) 25 mg PO DAILY [facility] Last Admin: 05/08/23 07:38 Dose: 25 mg Documented By: MONIKA Sodium Chloride (0.9 % Sodium Chloride Flush 3 Ml Syringe) 3 ml IVFLUSH QSHIFT [facility] Last Admin: 05/08/23 07:39 Dose: 3 ml Documented By: MONIKA Labs 05/08/23 05:44 05/08/23 05:44 Labs: Laboratory Results - last 24 hr 05/07/23 05/08/23 05/08/23 19:47 05:44 07:10 MCV 86.5 MCH 27.2 MCHC 31.4 RDW 17.1 H Plt Count 201 MPV 12.3 Immature Gran % (Auto) 0.4 Neut % (Auto) 61.1 Lymph % (Auto) 24.8 [place] % (Auto) 7.8 Eos % (Auto) 5.2 H Baso % (Auto) 0.7 Lymph # (Auto) 2.8 [place] # (Auto) 0.9 Eos # (Auto) 0.6 H Baso # (Auto) 0.1 Abs Immat Gran (auto) 0.04 H Absolute Neuts (auto) 6.8 Absolute Nucleated RBC 0.000 Nucleated RBC % (auto) 0.0 Anion Gap 13 Estim Creat Clear Calc 90.2 Estimated GFR > 60 POC Glucose 165 H 104 Fasting Glucose 112 H Calcium 8.5 D 05/08/23 11:17 MCV MCH MCHC RDW Plt Count MPV Immature Gran % (Auto) Neut % (Auto) Lymph % (Auto) [place] % (Auto) Eos % (Auto) Baso % (Auto) Lymph # (Auto) [place] # (Auto) Eos # (Auto) Baso # (Auto) Abs Immat Gran (auto) Absolute Neuts (auto) Absolute Nucleated RBC Nucleated RBC % (auto) Anion Gap Estim Creat Clear Calc Estimated GFR POC Glucose 161 H Fasting Glucose Calcium Assessment and Plan (1) Numbness and tingling in right hand: Status: Acute (2) Numbness and tingling in left hand: Status: Acute (3) Rupture of left quadriceps tendon: Status: Acute (4) Essential hypertension: Status: Acute (5) Diabetes mellitus: Status: Acute Plan 67-year-old male with a PMH significant for HTN, HLD, insulin-dependent diabetes type 2 with polyneuropathy, CKD 3, lumbar stenosis, and mood disorder who is admitted to the hospital under orthopedics for a left quadriceps repair. POD0. Hospitalist consult for medical management. Left quadriceps tear repair Good pain control Plan as per Orthopedic surgery HTN elevated blood pressures on hydralazine 10 mg t.i.d., lisinopril 40 mg and Lasix 20 mg Will increase dose of hydralazine to 20 mg t.i.d. follow BP Bilateral hand numbness in all fingers, no other neurological symptoms less likely related to recent fall with no neck trauma, hold of on imaging studies, will follow neuro exam closely. HLD Continue statin, fenofibrate Insulin-dependent diabetes type 2 stable bs , metformin, Trulicity Continue Januvia, sliding scale insulin, Lantus and Diabetic diet CKD 3 stable renal function. Mood disorder Continue home meds Disposition as per Ortho Quality Stroke Does the patient have a stroke diagnosis?: No VTE Prior VTE?: No VTE Risk Level:: Medical - moderate - high VTE Device Contraindication: N/A - Device Ordered VTE Drug Contraindication: N/A - Med Ordered
[2023-05-08] MEDS: Enoxaparin Sodium 40 MG/0.4 ML SYRINGE SUBCUT (14:54)
[2023-05-08] MEDS: hydrALAZINE HCl 10 MG TABLET 20 MG PO ×2 (15:03→20:36)
[2023-05-08 15:22] VITALS: BP 153/78; PULSE 91; RESP 18; TEMP 36; O2SAT 97
[2023-05-08 16:25] LABS: Glucose, Whole Blood 207 mg/dL (60-115)
--- NOTE | 2023-05-08 17:46 | PC.NURSE ---
MD Naranjo notified of pts elevated SBP up into 180's, Hydralazine increased to 20mg TID.
[2023-05-08 19:15] VITALS: BP 176/83; PULSE 100; RESP 19; TEMP 36.7; O2SAT 97
[2023-05-08 20:21] LABS: Glucose, Whole Blood 115 mg/dL (60-115)
[2023-05-08] MEDS: Insulin Glargine,Hum.rec.anlog 100 UNIT/ML 10 ML VIAL 38 UNIT SUBCUT (20:36)
[2023-05-08] MEDS: Latanoprost 0.005 % Ophth Sol 2.5 ML DROPS 1 DROP EYE-BOTH (21:11)
[2023-05-08] MEDS: LORazepam 1 MG TABLET PO (23:37)
[2023-05-09 03:27] VITALS: BP 154/75; PULSE 88; RESP 18; TEMP 36.4; O2SAT 97
[2023-05-09 06:02] LABS: MANUAL DIFF FLAG NO
[2023-05-09 06:16] LABS: Basophils Percent Auto 0.4 % (0-2); Eosinophils Absolute Auto 0.6 X10*3/uL (0.0-0.4); Eosinophils Percent Auto 5.9 % (0-4); Hematocrit 33.7 % (42.0-52.0); Hemoglobin 10.7 g/dl (14.0-18.0); Imm Gran Abs Auto 0.05 X10*3/uL (0.00-0.03); Imm Gran Pct Auto 0.5 % (0.0-0.4); Lymphocytes Absolute Auto 1.9 X10*3/uL (1.2-4.9); Lymphocytes Percent Auto 18.5 % (20-40); Mean Corpuscular HGB Conc 31.8 g/dl (31.0-36.0); Mean Corpuscular Hemoglobin 27.3 pg (27.0-33.0); Monocytes Percent Auto 9.3 % (2-11); Neutrophils Absolute Auto 6.7 x10*3/uL (2.0-8.3); Neutrophils Percent Auto 65.4 % (45-73); Platelet Count 206 X10*3/uL (160-400); Red Blood Count 3.92 X10*6/uL (4.60-5.80); Red Cell Distribution Width 17.2 % (11.0-16.0); White Blood Count 10.3 X10*3/uL (4.8-10.8)
[2023-05-09 06:20] LABS: Anion Gap 11 (12-20); Blood Urea Nitrogen 21 mg/dL (9-16); Calcium 8.7 mg/dL (8.4-10.2); Carbon Dioxide 26 mmol/L (22-29); Chloride 108 mmol/L (96-108); Estimated Glomerular Filt Rate > 60; Glucose Fasting 102 mg/dL (60-99); Potassium 4.1 mmol/L (3.3-5.1); Sodium 141 mmol/L (135-145)
[2023-05-09] MEDS: oxyCODONE HCl Immed Release 5 MG TABLET 10 MG PO ×3 (06:42→16:07)
[2023-05-09 07:07] VITALS: BP 168/84; PULSE 86; RESP 18; TEMP 36.7; O2SAT 99
[2023-05-09] MEDS: Celecoxib 200 MG CAPSULE PO (07:14)
[2023-05-09] MEDS: Atorvastatin Calcium 20 MG TABLET PO (07:14)
[2023-05-09] MEDS: oxyCODONE HCl ER 10 MG TAB.ER.12H PO (07:14)
[2023-05-09] MEDS: SITagliptin Phosphate 25 MG TABLET PO (07:14)
[2023-05-09] MEDS: Docusate Sodium 100 MG CAPSULE PO (07:14)
[2023-05-09] MEDS: 0.9 % Sodium Chloride Flush 3 ML SYRINGE IVFLUSH ×2 (07:14→16:15)
[2023-05-09] MEDS: Furosemide 20 MG TABLET PO (07:15)
[2023-05-09] MEDS: hydrALAZINE HCl 10 MG TABLET 20 MG PO ×2 (07:15→16:15)
[2023-05-09] MEDS: Fenofibrate 160 MG TABLET PO (07:15)
[2023-05-09] MEDS: lisinopriL 40 MG TABLET PO (07:15)
[2023-05-09 07:33] LABS: Glucose, Whole Blood 102 mg/dL (60-115)
[2023-05-09 08:40] VITALS: BP 168/84; PULSE 86; O2SAT 99
[2023-05-09 11:14] LABS: Glucose, Whole Blood 198 mg/dL (60-115)
--- NOTE | 2023-05-09 11:18 | P.DS_ITS ---
DS: Providers Provider Date of Service: 05/09/23 Date of admission: 05/07/23 16:29 Primary care physician: Tram Álvarez MD Consults: 05/07/23 17:36 Consult to Hospitalist Routine Comment: Consulting Provider: Hospitalist Reason For Exam: routine medical management DS: Diagnosis Discharge Diagnosis (1) Rupture of left quadriceps tendon: Status: Acute DS: Summary Hospital Course Hospital Course: The patient underwent a successful quad tendon repair 05/07/23, was transferred to PACU and then to the floor to recover. During their stay, their vitals were stable, afebrile at 98.1. Labs were unremarkable, H/H 10.7/33.7. POD 1 he was started on Lovenox for DVT ppx, they also received Physical Therapy services twice a day. Physical therapy should include : WBAT with brace at all times Brace locked in extension while ambulating at all times No ROM x 2 weeks SLR/isometric quad sets ok * Limit stair climbing Prevena dressing should remain intact at all times. If there are any concerns for blockage or leaking of the dressing, contact our office [place]. The plan is to be discharged home with VNA. Time Attestation Discharge coordination time: Less than 30 minutes Quality: Safe Use of Opioids Does Pt have an Active Cancer Diagnosis on the Problem List?: No Quality: Stroke Does the patient have a stroke diagnosis?: No Physical Exam Vital Signs: Vital Signs: Last Vital Signs Temp 98.1 F 05/09/23 07:07 Pulse 86 05/09/23 08:40 Resp 18 05/09/23 07:07 BP 168/84 H 05/09/23 08:40 Pulse Ox 99 05/09/23 08:40 O2 Del Method Room Air 05/09/23 07:07 O2 Flow Rate 2 05/07/23 16:40 BMI result Body Mass Index 36.5 Const: General: cooperative, healthy appearing and no acute distress Resp: Effort & Inspection: normal respiratory effort and able to speak in complete sentences Cardio: Rate: regular rate Peripheral pulses: Peripheral pulses 2+ throughout GI: Palpation (GI): Soft to palpation Skin: Lesions: no lesions Rashes: no rashes Extrem: Other: Left knee Prevena is intact with appropriate suctioning. Able to dorsi/plantar flex. Calf is supple and nontender. Sensation intact. Pedal pulse intact. DS: Data Data Completed and Pending Completed studies during hospitalization [Text1]: Procedures Repair Left Upper Leg Tendon, Open Approach (04/17/23) Labs on day of discharge: Laboratory Results - last 24 hr 05/08/23 05/08/23 05/08/23 11:17 16:17 20:12 WBC RBC Hgb Hct MCV MCH MCHC RDW Plt Count MPV Immature Gran % (Auto) Neut % (Auto) Lymph % (Auto) [place] % (Auto) Eos % (Auto) Baso % (Auto) Lymph # (Auto) [place] # (Auto) Eos # (Auto) Baso # (Auto) Abs Immat Gran (auto) Absolute Neuts (auto) Absolute Nucleated RBC Nucleated RBC % (auto) Sodium Potassium Chloride Carbon Dioxide Anion Gap BUN Creatinine Estim Creat Clear Calc Estimated GFR POC Glucose 161 H 207 H 115 Fasting Glucose Calcium 05/09/23 05/09/23 05/09/23 05:43 07:17 11:10 WBC 10.3 RBC 3.92 L Hgb 10.7 L Hct 33.7 L MCV 86.0 MCH 27.3 MCHC 31.8 RDW 17.2 H Plt Count 206 MPV 13.0 H Immature Gran % (Auto) 0.5 H Neut % (Auto) 65.4 Lymph % (Auto) 18.5 L [place] % (Auto) 9.3 Eos % (Auto) 5.9 H Baso % (Auto) 0.4 Lymph # (Auto) 1.9 [place] # (Auto) 1.0 Eos # (Auto) 0.6 H Baso # (Auto) 0.0 Abs Immat Gran (auto) 0.05 H Absolute Neuts (auto) 6.7 Absolute Nucleated RBC 0.000 Nucleated RBC % (auto) 0.0 Sodium 141 Potassium 4.1 Chloride 108 Carbon Dioxide 26 Anion Gap 11 L BUN 21 H Creatinine 0.84 Estim Creat Clear Calc 102.0 Estimated GFR > 60 POC Glucose 102 198 H Fasting Glucose 102 H Calcium 8.7 Discharge Plan Discharge Anticipated Discharge Date/Time: 05/09/23 11:16 Patient Disposition: Home Health Service Discharge Diagnosis: s/p quad tendon repair Referrals: Juani Campos PA-C [Physician Lead Designer] - 1 Week (05/15/23 3:00 [facility] Juani Campos PA-C) Discharge Medications: New enoxaparin 40 mg/0.4 mL Syringe 40 mg subcut Q24H 42 Days Qty: 16.8 0RF celecoxib 200 mg Capsule 200 mg PO BID 30 Days Qty: 60 0RF oxycodone 10 mg tablet 10 mg PO Q4H PRN (Reason: Pain, Moderate(Pain Scale 4-6)) 7 Days Qty: 42 0RF Rx Instructions: Partial Fill upon patient request. docusate sodium 100 mg Capsule 100 mg PO BID 7 Days Qty: 14 0RF Continued (DME) [place] [facility] [place] Rx Instructions .ROUTE .MEDSUPPLY Qty: 1 0RF Rx Instructions: As directed (DME) Ultra-Light Rollator [facility] [place] Rx Instructions .ROUTE .MEDSUPPLY Qty: 1 0RF Rx Instructions: with seat lorazepam 1 mg tablet 1 mg PO BID PRN (Reason: Anxiety) 30 Days Qty: 45 0RF Rx Instructions: PATIENT IS NON-ADHERENT. DOES NOT HAVE MONEY TO BUY SOME MEDICATION (DME) sock aid See Rx Instructions .Route .MEDSUPPLY Qty: 1 0RF Rx Instructions: As directed (DME) leg regional sales representative See Rx Instructions .Route .MEDSUPPLY Qty: 1 0RF Rx Instructions: As directed (DME) bed rail See Rx Instructions .Route .MEDSUPPLY Qty: 1 0RF Rx Instructions: As directed (DME) FreeStyle Tirso 14 Day [place] [facility] Rx Instructions .ROUTE .MEDSUPPLY Qty: 1 0RF Rx Instructions: As directed sennosides [senna] 8.6 mg tablet 8.6 mg PO BEDTIME PRN (Reason: constipation) 90 Days Qty: 90 1RF cyclobenzaprine 10 mg tablet 10 mg PO BEDTIME PRN (Reason: muscle spasm) 90 Days Qty: 90 1RF fenofibrate nanocrystallized 145 mg tablet 145 mg PO DAILY 90 Days Qty: 90 1RF furosemide 20 mg tablet 20 mg PO DAILY 90 Days Qty: 90 1RF hydralazine 10 mg tablet 10 mg PO TID 90 Days Qty: 270 2RF Januvia 25 mg tablet 25 mg PO DAILY 90 Days Qty: 90 1RF atorvastatin 20 mg tablet 20 mg PO DAILY 30 Days Qty: 30 4RF benazepril 40 mg tablet 40 mg PO DAILY Qty: 30 1RF Hold Instructions: Resume on 11/16/20. Stop taking until repeat lab work is checked. docusate sodium 100 mg capsule 100 mg PO BID 14 Days Qty: 28 0RF icosapent ethyl [Vascepa] 1 gram capsule 2 g PO BID 30 Days Qty: 120 4RF Tresiba FlexTouch U-200 200 unit/mL (3 mL) insulin pen 55 unit subcut BEDTIME 90 Days Qty: 24.75 4RF Rx Instructions: took 25 units sc 04/14/23 pm metformin 500 mg tablet extended release 24 hr 500 mg PO BID 90 Days Qty: 180 1RF (DME) pen needle, diabetic 31 gauge x 5/16 needle See Rx Instructions subcut .MEDSUPPLY Qty: 200 4RF Rx Instructions: five times a day (DME) FreeStyle Tirso 2 Sensor Kit See Rx Instructions .Route Qty: 1 0RF Rx Instructions: As directed latanoprost 0.005 % drops 1 drp ophthalmic (eye) BEDTIME Rx Instructions: 1 drop into both eyes Trulicity 1.5 mg/0.5 mL pen injector 1.5 mg subcut POSADAS@0900 (DME) blood pressure monitor Kit See Rx Instructions .Route Qty: 1 0RF Rx Instructions: As directed (DME) chair lift See Rx Instructions .Route .MEDSUPPLY Qty: 1 0RF Rx Instructions: As directed Discontinued oxycodone 5 mg tablet 5 mg PO .every 6 hours PRN (Reason: pain (scale score 4-6)) 30 Days Qty: 120 0RF Rx Instructions: Partial Fill upon patient request. celecoxib 200 mg capsule 200 mg PO BID 30 Days Qty: 60 0RF aspirin 325 mg tablet,delayed release (DR/EC) 325 mg PO BID 28 Days Qty: 56 0RF acetaminophen 325 mg tablet 650 mg PO Q6H PRN (Reason: pain) Qty: 240 0RF Discharge Orders: Discharge Order (Routine); Ordered 05/09/23 Ordered By: Samy Ryan Diet: Regular diet Activity on Discharge: Use cane or walker Stand Alone Forms: Patient Portal Discharge page Care Plan Goals: Restore function of joint Health Concerns: none Plan of Treatment: Physical Therapy for RT Total knee arthroplasty ( 02/11/23) with quad tendon repair (04/15 & 05/07/23) WBAT with brace at all times Brace locked in extension while ambulating at all times No ROM x 2 weeks SLR/isometric quad sets ok * Limit stair climbing * No showering, no tub bath-keep dressing clean, dry and intact * No driving x6 weeks * Continue lovenox x 6 weeks * Follow up with [facility] Orthopedics in 1 week * 5:00 [facility] Orthopedic SurgeonsJuani Campos PA-C Assessment: Physical Therapy Pain management DVT prophylaxis
[2023-05-09] MEDS: HYDROmorphone HCl 0.5 MG/0.5 ML SYRINGE IVPUSH ×2 (12:05→16:08)
[2023-05-09] MEDS: Insulin Lispro 100 UNIT/ML 3 ML VIAL SUBCUT ×2 (12:05→16:50)
[2023-05-09] MEDS: Enoxaparin Sodium 40 MG/0.4 ML SYRINGE SUBCUT (16:08)
[2023-05-09 16:11] LABS: Glucose, Whole Blood 167 mg/dL (60-115)
--- NOTE | 2023-05-21 10:02 | W.PM.OPN ---
Operative Note Operative Note Date of Service: 05/07/23 Narrative: Date of Service: 05/07/23 Pre-op diagnosis: Left quad tear Post-op diagnosis: same Procedure: Left quad repair Implants: none Surgeon: Wesley Apple MD Anesthesia: regional and spinal Was an Alemite Operator used for this Procedure?: Yes Alemite Operator: Juani Campos Estimated blood loss (mL): 100 IV fluids (mL): 750 Pathology: none sent Condition: stable Disposition: PACU Procedure in detail: Patient was brought to the operating room and placed supine on the surgical table. He was prepped and draped in standard sterile fashion and a time out was called to identify proper site, proper procedure and IV antibiotics per weight were administered. I began by opening up the prior TKA incision with sharp dissection. There was no purulence just hematogenous fluid. The distal quad was partially torn intra-tendinous just proximal to the insertion with involvement of the prior arthrotomy. This was nearly identical to prior. There was a partial dehiscence. I irrigated and cleaned the tendon and was able to clean it up sufficiently to reapproximate it. I then repaired the intra substance tear with prolene and the arthrotomy was repaired with running Quill and heavy prolene. The knee was irrigated copiously prior to this closure. I then ranged the knee and the repair was stable. I then closed with subq and bruce and a Proveena vacuum assisted wound closure device was placed. He was awakened from anesthesia and brought to the recovery room in stable condition. There were no known complications.
== END 2023-05-09 18:30 | disposition home health service (06) | DRG 502 ==
LOC: HO.EDOVER 16:51 → HO.S3 16:51
PROVIDERS: Physician Assistant; Admitting Provider Orthopaedic Surgery; PCP Internal Medicine; Visit Provider Hospitalist
PROC: 0LQM0ZZ Repair Left Upper Leg Tendon, Open Approach (ICD-10-PCS; principal; 2023-05-07 14:40)
DX: S76.112A Strain of left quadriceps muscle, fascia and tendon, initial encounter (principal); W18.2XXA Fall in (into) shower or empty bathtub, initial encounter; E11.42 Type 2 diabetes mellitus with diabetic polyneuropathy; I12.9 Hypertensive chronic kidney disease with stage 1 through stage 4 chronic kidney disease, or unspecified chronic kidney disease; N18.30 Chronic kidney disease, stage 3 unspecified; E11.22 Type 2 diabetes mellitus with diabetic chronic kidney disease; R20.2 Paresthesia of skin; F39 Unspecified mood [affective] disorder; G89.18 Other acute postprocedural pain; E78.5 Hyperlipidemia, unspecified; Z87.891 Personal history of nicotine dependence; Z79.4 Long term (current) use of insulin; Z79.84 Long term (current) use of oral hypoglycemic drugs; Z79.899 Other long term (current) drug therapy
CPT/HCPCS: 36415; 80048; 82947; 85025; 97116; 97162; 97166; 97535; J0131; J0690; J1170; J1650; J2250; J2371; J3010

== ENCOUNTER → 2023-05-07 16:29 | Outpatient (BNV) | payer OTHER, SELFPAY | PROVIDERS: Admitting Provider Orthopaedic Surgery; PCP Internal Medicine; Visit Provider Student in an Organized Health Care Education/Training Program | DX: R20.0 Anesthesia of skin (principal); R20.2 Paresthesia of skin; S76.112D Strain of left quadriceps muscle, fascia and tendon, subsequent encounter; I10 Essential (primary) hypertension; E11.9 Type 2 diabetes mellitus without complications | CPT/HCPCS: 99222; 99233 ==

== ENCOUNTER 2023-05-15 14:54 | Outpatient (AMB) | payer OTHER, SELFPAY ==
--- NOTE | 2023-05-15 15:00 | A.OFFVIS_ITS ---
Intake Intake Visit Reasons: PO Left quad tendon repair 05/07 NE Intake Note: Carlos is a 67 year old male presents today for a post operative left quad tendon repair 05/07/23 NE . Patient reports still having pain. Allergies Penicillins [PENICILLINS] Allergy (Severe, Verified 05/07/23 12:51) RASH jay pepper Allergy (Intermediate, Verified 05/07/23 12:51) Rash pepper (genus Capsicum) Adverse Reaction (Intermediate, Verified 05/07/23 12:51) rashes HPI PO Left quad tendon repair 05/07 NE HPI Details 67-year-old male who presents in the off ice today 8 days status post left quad repair, which was performed on 05/07/[address] Apple. The patient reports he is still having pain. Upon entering the room it was noticed the brace was not positioned appropriately. It was roughly at 60 degrees. [facility] Medical History Knee osteoarthritis Mild recurrent major depression Mixed hyperlipidemia Right shoulder pain Right knee pain Left knee pain CKD (chronic kidney disease), stage III Low back pain Multiple falls Syncope DAVINA (acute kidney injury) Obesity due to excess calories Lumbar spondylosis Proteinuria Arthritis Hypertriglyceridemia Hypertension Diabetic polyneuropathy associated with type 2 diabetes mellitus Type 2 diabetes mellitus with other diabetic kidney complication Lumbar stenosis Surgical History History of surgery on lower extremity History of total left knee replacement (TKR) S/P evacuation of hematoma Hx of cataract surgery History of lumbar surgery Hx of eye surgery History of back surgery Family History Father Medical history unknown Mother No problems noted. Maternal Grandmother Medical history unknown Social History Household Members: None Household Members Other:: self Housing: Apartment Are you a primary team primary care physician to a significant other at home: No Do you presently have visiting nurse or other home services: No Alcohol intake: never Patient Tobacco Use Status: Former Tobacco user Quit Date: 2 yrs ago Tobacco use type: Cigarette Years Smoked: 25 e-Cigarette/Vaping Use: Never Used Second Hand Smoke Exposure: No service: Yes Current occupational status: disabled Cognitive needs: Yes (walker) Hearing needs: No Vision needs: Yes (reading glasses) Review of Systems Const All systems reviewed & are unremarkable except as noted in HPI and below Physical Exam Const General: cooperative, healthy appearing and no acute distress Resp Effort & Inspection: normal respiratory effort and able to speak in complete sentences Cardio Rate: regular rate Peripheral pulses: Peripheral pulses 2+ throughout GI Palpation (GI): Soft to palpation Skin Lesions: no lesions Rashes: no rashes Extrem Other: Left knee: Incision site is clean, dry, and intact. [place] intact. No surrounding erythema or drainage. No signs of infection. Quad weakness. No palpable deformities. NVI. Assessment & Plan Assessment & Plan (1) Rupture of left quadriceps tendon: Comment: Left quad repair, 04/15/2023 NE; re-ruptured on 05/04/2023. Code(s): S76.112A - Strain of left quadriceps muscle, fascia and tendon, initial en counter Qualifiers: Encounter type: subsequent encounter Qualified Code(s): S76.112D - Strain of left quadriceps muscle, fascia and tendon, subsequent encounter Plan Mr. Cabrera is a 67-year-old male who presents in the office today 8 days status post left quad repair, which was performed on 05/07/[address] Apple. The patient reports he is still having pain. Upon entering the room it was noticed the brace was not positioned appropriately. It was roughly at [address] Apple was available to see the patient with me while in the office today and a collaborative treatment plan was made. He stressed the importance of keeping the leg locked in extension and to not flex past 60 degrees at all time. This is to avoid any chance of re-rupturing the quad. Minnie will remain in place for another week.The patient will be referred to physical therapy. Follow up will be in 1 week with anticipation of staple removal, or sooner if needed. Orders: Orders 2 PT Evaluation and Treatment 05/15/23 S76.112A - Strain of left quadriceps muscle, fascia and tendon, initial encounter Patient Instructions: Scribed for Juani Campos PA-C by Akanksha Wooten medical practitioners, on 05/15/2023 at 3:17 pm, EST. Coding Level of Care Code Global (15749) Diagnoses Rupture of left quadriceps tendon, subsequent encounter S76.112D Encounter type: subsequent encounter
== END 2023-05-15 16:03 | disposition home or self-care (01) ==
PROVIDERS: PCP Internal Medicine; Visit Provider Physician Assistant
DX: S76.112D Strain of left quadriceps muscle, fascia and tendon, subsequent encounter (principal)
CPT/HCPCS: 99024

== ENCOUNTER → 2023-05-15 14:54 | Outpatient (BNVA) | payer OTHER, SELFPAY | PROVIDERS: PCP Internal Medicine; Visit Provider Physician Assistant ==

== ENCOUNTER 2023-05-21 09:57 | Outpatient (REF) | payer OTHER, SELFPAY ==
--- NOTE | 2023-05-21 09:59 | EMG_ITS ---
Please see scanned EMG / Nerve Conduction Report. MTDD
== END 2023-05-21 09:58 | disposition home or self-care (01) ==
LOC: HO.NEURO 09:57
PROVIDERS: PCP Internal Medicine; Visit Provider Nurse Practitioner Family
DX: R20.0 Anesthesia of skin (principal); R20.2 Paresthesia of skin
CPT/HCPCS: 95885; 95913

== ENCOUNTER 2023-06-03 10:47 | Outpatient (REF) | payer OTHER, SELFPAY ==
[2023-06-03 11:32] LABS: Hematocrit 43.1 % (42.0-52.0); Hemoglobin 13.5 g/dl (14.0-18.0); Mean Corpuscular HGB Conc 31.3 g/dl (31.0-36.0); Mean Corpuscular Hemoglobin 27.1 pg (27.0-33.0); Mean Corpuscular Volume 86.4 fL (80.0-98.0); Mean Platelet Volume 12.8 fL (9.4-12.4); Platelet Count 250 X10*3/uL (160-400); Red Blood Count 4.99 X10*6/uL (4.60-5.80); Red Cell Distribution Width 18.1 % (11.0-16.0)
[2023-06-03 12:27] LABS: Anion Gap 12 (12-20); Blood Urea Nitrogen 18 mg/dL (9-16); Calcium 9.6 mg/dL (8.4-10.2); Carbon Dioxide 26 mmol/L (22-29); Chloride 109 mmol/L (96-108); Estimated Glomerular Filt Rate > 60; Sodium 142 mmol/L (135-145)
[2023-06-03 12:34] LABS: Alanine Aminotransferase 14 U/L (0-40); Albumin Level 4.2 g/dL (3.5-5.0); Alkaline Phosphatase 91 U/L (39-117); Anion Gap 12 (12-20); Aspartate Amino Transferase 21 U/L (5-37); Bilirubin Total 0.4 mg/dL (0.0-1.0); Blood Urea Nitrogen 18 mg/dL (9-16); Calcium 9.7 mg/dL (8.4-10.2); Carbon Dioxide 26 mmol/L (22-29); Chloride 110 mmol/L (96-108); Cholesterol 79 mg/dL (<200); Estimated Glomerular Filt Rate > 60; Glucose Fasting 160 mg/dL (60-99); HDL Cholesterol 34 mg/dL (>40); Iron 95 mcg/dL (45-160); LDL Cholesterol Calculated 17 mg/dL (<100); Percent Iron Saturation 28 % (15-50); Potassium 4.8 mmol/L (3.3-5.1); Sodium 143 mmol/L (135-145); Total Iron Binding Capacity 343 mcg/dL (228-428); Total Protein 7.5 g/dL (6.5-8.0); Triglycerides 144 mg/dL (<150); Unsaturated Iron Binding 248 ug/dL; Vitamin D 25-OH Total 11.7 ng/mL (>30)
[2023-06-03 12:38] LABS: Folate 6.1 ng/mL (> or = 4.0); Vitamin B12 277 pg/mL (200-900)
== END 2023-06-03 10:48 | disposition home or self-care (01) ==
LOC: HO.LAB 10:47
PROVIDERS: Nurse Practitioner Family; Visit Provider Internal Medicine Hypertension Specialist
DX: E11.22 Type 2 diabetes mellitus with diabetic chronic kidney disease (principal); N18.30 Chronic kidney disease, stage 3 unspecified; D63.1 Anemia in chronic kidney disease; R20.0 Anesthesia of skin; R20.2 Paresthesia of skin; E78.5 Hyperlipidemia, unspecified
CPT/HCPCS: 36415; 80051; 80053; 80061; 82306; 82310; 82565; 82607; 82746; 83540; 84520; 85027

== ENCOUNTER 2023-06-05 08:56 | Outpatient (AMB) | payer OTHER, SELFPAY ==
--- NOTE | 2023-06-05 09:08 | MHC.OFFVIS ---
Intake Intake Visit Reasons: PO-Left quad tendon repair 05/07 NE Intake Note: Carlos is a 67 year old male presents today for a post operative left quad tendon repair 05/07/23 NE . Patient reports some pain. Allergies Penicillins [PENICILLINS] Allergy (Severe, Verified 06/05/23 09:08) RASH jay pepper Allergy (Intermediate, Verified 06/05/23 09:08) Rash pepper (genus Capsicum) Adverse Reaction (Intermediate, Verified 06/05/23 09:08) rashes Medication List - Last Reconciled 06/05/23 by Janae Dias RN acetaminophen 650 mg (2 x 325 mg) PO Q6H PRN 30 days atorvastatin 20 mg PO DAILY 30 days [bed rail As directed] benazepril 40 mg PO DAILY blood pressure monitor As directed Brace,wrist right hand wrist splint celecoxib 200 mg PO BID 30 days [chair lift As directed] cyclobenzaprine 10 mg PO BEDTIME PRN 90 days docusate sodium 100 mg PO BID 7 days docusate sodium 100 mg PO BID 14 days dulaglutide (Trulicity) 1.5 mg (0.5 mL) subcut QWEEK 90 days enoxaparin 40 mg (0.4 mL) subcut Q24H 42 days fenofibrate nanocrystallized 145 mg PO DAILY 90 days flash glucose scanning reader (Buz Tirso 14 Day [place]) As directed flash glucose sensor (Your [employer] Tirso 2 Sensor kit) As directed furosemide 20 mg PO DAILY 90 days hydralazine 25 mg PO TID 90 days icosapent ethyl (Vascepa) 2 grams (2 x 1 gram) PO BID 30 days insulin degludec (Tresiba FlexTouch U-200 insulin) 55 units (0.275 mL) subcut BEDTIME 90 days latanoprost 0.005% 1 drp ophthalmic (eye) BEDTIME [leg renal case manager As directed] lorazepam 1 mg PO BID PRN 30 days metformin ER 500 mg PO BID 90 days oxycodone 10 mg PO Q6H PRN 30 days pen needle, diabetic five times a day sennosides (senna) 8.6 mg PO BEDTIME PRN 90 days Shower Chair As directed sitagliptin phosphate (Januvia) 25 mg PO DAILY 90 days [sock aid As directed] walker As directed walker (Ultra-Light Rollator [facility] [place]) with seat HPI PO-Left quad tendon repair 05/07 NE HPI Details 67-year-old male who presents in the office today 3 weeks status post left quad repair, which was performed on 05/07/[address] Apple. The patient reports having some pain. [facility] Medical History Numbness and tingling in right hand Numbness and tingling in left hand Essential hypertension Diabetes mellitus Knee osteoarthritis Mild recurrent major depression Mixed hyperlipidemia Right shoulder pain Right knee pain Left knee pain CKD (chronic kidney disease), stage III Low back pain Multiple falls Syncope DAVINA (acute kidney injury) Obesity due to excess calories Lumbar spondylosis Proteinuria Arthritis Hypertriglyceridemia Hypertension Diabetic polyneuropathy associated with type 2 diabetes mellitus Type 2 diabetes mellitus with other diabetic kidney complication Lumbar stenosis Surgical History History of surgery on lower extremity History of total left knee replacement (TKR) S/P evacuation of hematoma Hx of cataract surgery History of lumbar surgery Hx of eye surgery History of back surgery Family History Father Medical history unknown Mother No problems noted. Maternal Grandmother Medical history unknown Social History Household Members: None Household Members Other:: self Housing: Apartment Are you a primary workforce investment act career manager to a significant other at home: No Do you presently have visiting nurse or other home services: No Alcohol intake: never Comment: final count is correct Patient Tobacco Use Status: Former Tobacco user Quit Date: 2 yrs ago Tobacco use type: Cigarette Years Smoked: 25 e-Cigarette/Vaping Use: Never Used Second Hand Smoke Exposure: No service: Yes Current occupational status: disabled Cognitive needs: Yes (walker) Hearing needs: No Vision needs: Yes (reading glasses) Review of Systems Const All systems reviewed & are unremarkable except as noted in HPI and below Physical Exam Const General: cooperative, healthy appearing and no acute distress Resp Effort & Inspection: normal respiratory effort and able to speak in complete sentences Cardio Rate: regular rate Peripheral pulses: Peripheral pulses 2+ throughout GI Palpation (GI): Soft to palpation Skin Lesions: no lesions Rashes: no rashes Extrem Other: Left knee: Incision site is clean, dry, and intact. Eaton intact. Able to perform straight leg raise. No palpable defect at the quad tendon. ROM is 20-40 degrees. NVI. Assessment & Plan Assessment & Plan (1) Rupture of left quadriceps tendon: Comment: Left quad repair, 04/15/2023 NE; re-ruptured on 05/04/2023. Code(s): S76.112A - Strain of left quadriceps muscle, fascia and tendon, initial encounter Qualifiers: Encounter type: subsequent encounter Qualified Code(s): S76.112D - Strain of left quadriceps muscle, fascia and tendon, subsequent encounter Plan Mr. Cabrera is a 67-year-old male who presents in the office today 3 weeks status post left quad repair, which was performed on 05/07/[address] Apple. The patient reports having some pain. Eaton were removed and steri-stripes were applied. He will remain in the ACL brace, which was adjusted in the office again today. He continues to improperly wear this allopwing leg to bend with ambulation and sitting. He was also provided with a stockinette to help protect the skin. He may weight bear as tolerated while in the brace and use of a walker. He will continue to work with physical therapy. Follow up will be in 4 weeks, or sooner if needed. Patient Instructions: Scribed for Juani Campos PA-C by Akanksha Wooten vp medical, on 06/05/2023 at 8:58 am, EST. Coding Level of Care Code Global (11621) Diagnoses Rupture of left quadriceps tendon, subsequent encounter S76.112D Encounter type: subsequent encounter
== END 2023-06-05 09:40 | disposition home or self-care (01) ==
PROVIDERS: PCP Internal Medicine; Visit Provider Physician Assistant
DX: S76.112D Strain of left quadriceps muscle, fascia and tendon, subsequent encounter (principal)
CPT/HCPCS: 99024

== ENCOUNTER 2023-06-05 08:56 | Outpatient (REF) | payer OTHER, SELFPAY ==
[2023-06-05 11:18] LABS: Creatinine Urine 91.19 mg/dL; Total Protein Urine Random 24 mg/dL (<12)
== END 2023-06-05 08:57 | disposition home or self-care (01) ==
LOC: HO.LAB 08:56
PROVIDERS: Absent Provider Internal Medicine Hypertension Specialist; PCP Internal Medicine; Visit Provider Physician Assistant
DX: N18.30 Chronic kidney disease, stage 3 unspecified (principal); S76.112D Strain of left quadriceps muscle, fascia and tendon, subsequent encounter
CPT/HCPCS: 82570; 84156

== ENCOUNTER 2023-06-10 10:02 | Outpatient (AMB) | payer OTHER, SELFPAY ==
--- NOTE | 2023-06-10 10:05 | HO.NEPHOV_ITS ---
HPI HPI Comments History of Present Illness Details Middle-aged man with a history of longstanding diabetes mellitus hypertension and has mild obesity. He is here for annual follow-up for CKD. He has had left knee surgery and currently has braces. He has been taking Celebrex 200 mg twice a day in addition to benazepril. Patient serum creatinine has been around 0.86. Recent creatinine was 1.12. He has no specific complaints today. No polyuria no polydipsia. [facility] Medical History (Updated 06/10/23 @ 10:33 by Valente Izaguirre MD) Essential hypertension Numbness and tingling in right hand Numbness and tingling in left hand Diabetes mellitus Knee osteoarthritis Mild recurrent major depression Mixed hyperlipidemia Right shoulder pain Right knee pain Left knee pain CKD (chronic kidney disease), stage III Low back pain Multiple falls Syncope DAVINA (acute kidney injury) Obesity due to excess calories Lumbar spondylosis Proteinuria Arthritis Hypertriglyceridemia Hypertension Diabetic polyneuropathy associated with type 2 diabetes mellitus Type 2 diabetes mellitus with other diabetic kidney complication Lumbar stenosis Surgical History History of surgery on lower extremity History of total left knee replacement (TKR) S/P evacuation of hematoma Hx of cataract surgery History of lumbar surgery Hx of eye surgery History of back surgery Family History Father Medical history unknown Mother No problems noted. Maternal Grandmother Medical history unknown Social History Household Members: None Household Members Other:: self Housing: Apartment Are you a primary direct care supervisor to a significant other at home: No Do you presently have visiting nurse or other home services: No Alcohol intake: never Comment: final count is correct Patient Tobacco Use Status: Former Tobacco user Quit Date: 2 yrs ago Tobacco use type: Cigarette Years Smoked: 25 e-Cigarette/Vaping Use: Never Used Second Hand Smoke Exposure: No service: Yes Current occupational status: disabled Cognitive needs: Yes (walker) Hearing needs: No Vision needs: Yes (reading glasses) Vital Signs 06/10/23 10:06 06/10/23 10:27 Height 5 ft 8 in Weight 222 lb BMI 33.8 BP 148/90 H 134/70 Blood Pressure Location Lt brachial Lt brachial Position Sitting Pulse 93 Pulse Source Pulse Oximeter Pulse Oximetry (%) 99 Oxygen Delivery Method Room Air Physical Exam Vital Signs: Last Vital Signs Pulse 93 06/10/23 10:06 BP 134/70 06/10/23 10:27 Pulse Ox 99 06/10/23 10:06 Oxygen Delivery Method Room Air 06/10/23 10:06 BMI result Body Mass Index 33.8 Const General: comfortable; No acute distress Orientation/consciousness: patient oriented x3 Eyes General: appearance normal, both eyes and all related structures Visual Esteban: normal visual esteban by confrontation Neck Neck: Yes supple and Yes no JVD Resp Effort & Inspection: normal respiratory effort and respiratory effort not decreased Auscultation: rhonchi Cardio Palpation: no palpable S3 and no palpable S4 Heart sounds: no rubs GI Inspection: Yes normal to inspection Palpation (GI): Soft to palpation Percussion: Yes normal to percussion Auscultation: normal bowel sounds General: Yes no CVA tenderness Back/Spine/Pelvis Back: no CVA tenderness Skin General skin exam: no petechiae and no purpura Neuro General: patient oriented x3 and no focal motor deficits Extrem General: No clubbing and No edema Assessment & Plan Assessment & Plan (1) CKD (chronic kidney disease) stage 2, GFR 60-89 ml/min: Code(s): N18.2 - Chronic kidney disease, stage 2 (mild) (2) Microalbuminuria: Code(s): R80.9 - Proteinuria, unspecified (3) Essential hypertension: Code(s): I10 - Essential (primary) hypertension Plan Middle-aged man longstanding hypertension diabetes mellitus with mild CKD. He has minimal proteinuria in a setting of diabetic kidney disease. Goal is to slow the proximal disease. Continue with True inhibitors for renal protection. He is currently on SGLT 2 inhibitors and we will continue with the same. Blood pressure is well controlled. Discussed low-salt diet and weight loss. I am concerned he is on both benazepril and Celebrex twice a day. This puts him at high risk for acute kidney injury due to hypoperfusion. I have encouraged him to cut back on the Celebrex to once a day and gradually discontinue the use. Increased increase fluid intake. Avoid nephrotoxic agents. Orders: Orders Electrolytes 10 Months I10 - Essential (primary) hypertension, N18.2 - Chronic kidney disease, stage 2 (mild) Creatinine 10 Months I10 - Essential (primary) hypertension, N18.2 - Chronic kidney disease, stage 2 (mild) Calcium 10 Months I10 - Essential (primary) hypertension, N18.2 - Chronic kidney disease, stage 2 (mild) Creatinine Urine 10 Months I10 - Essential (primary) hypertension, N18.2 - Chronic kidney disease, stage 2 (mild) Blood Urea Nitrogen 10 Months I10 - Essential (primary) hypertension, N18.2 - C hronic kidney disease, stage 2 (mild) Total Protein Urine Random 10 Months I10 - Essential (primary) hypertension, N18.2 - Chronic kidney disease, stage 2 (mild) UA and rflx microscopic 10 Months I10 - Essential (primary) hypertension, N18.2 - Chronic kidney disease, stage 2 (mild) Coding Level of Care Code Est Pt Level 4 (64733) Diagnoses CKD (chronic kidney disease) stage 2, GFR 60-89 ml/min N18.2 Microalbuminuria R80.9 Essential hypertension I10 Results Reviewed Nephrology Results: Hgb 13.5 g/dl (14.0-18.0) L 06/03/23 WBC 9.0 X10*3/uL (4.8-10.8) 06/03/23 Plt Count 250 X10*3/uL (160-400) 06/03/23 Sodium 143 mmol/L (135-145) 06/03/23 Potassium 4.8 mmol/L (3.3-5.1) 06/03/23 Chloride 110 mmol/L (96-108) H 06/03/23 Carbon Dioxide 26 mmol/L (22-29) 06/03/23 BUN 18 mg/dL (9-16) H 06/03/23 Creatinine 1.12 mg/dL (0.5-1.4) 06/03/23 Calcium 9.7 mg/dL (8.4-10.2) 06/03/23 Urine Creatinine 91.19 mg/dL 06/05/23
[2023-06-10 10:06] VITALS: BP 148/90; PULSE 93; O2SAT 99; BMI 33.8
[2023-06-10 10:27] VITALS: BP 134/70
== END 2023-06-10 10:30 | disposition home or self-care (01) ==
PROVIDERS: PCP Internal Medicine; Visit Provider Internal Medicine Hypertension Specialist
DX: I12.9 Hypertensive chronic kidney disease with stage 1 through stage 4 chronic kidney disease, or unspecified chronic kidney disease (principal); N18.2 Chronic kidney disease, stage 2 (mild); R80.9 Proteinuria, unspecified
CPT/HCPCS: 99214

== ENCOUNTER → 2023-06-10 10:02 | Outpatient (BNVA) | payer OTHER, SELFPAY | PROVIDERS: PCP Internal Medicine; Visit Provider Internal Medicine Hypertension Specialist | DX: I12.9 Hypertensive chronic kidney disease with stage 1 through stage 4 chronic kidney disease, or unspecified chronic kidney disease (principal); E11.42 Type 2 diabetes mellitus with diabetic polyneuropathy; E11.22 Type 2 diabetes mellitus with diabetic chronic kidney disease; N18.2 Chronic kidney disease, stage 2 (mild); R80.9 Proteinuria, unspecified | CPT/HCPCS: 99212 ==

== ENCOUNTER 2023-07-10 10:57 | Outpatient (REF) | payer OTHER, SELFPAY | END 2023-07-10 10:58 | disposition home or self-care (01) | LOC: HO.LAB 10:57 | PROVIDERS: Absent Provider Internal Medicine Hypertension Specialist; PCP Internal Medicine; Visit Provider Orthopaedic Surgery | DX: S76.112D Strain of left quadriceps muscle, fascia and tendon, subsequent encounter (principal); X58.XXXD Exposure to other specified factors, subsequent encounter; Z96.652 Presence of left artificial knee joint; Z47.89 Encounter for other orthopedic aftercare | CPT/HCPCS: 99212 ==

== ENCOUNTER 2023-07-10 10:57 | Outpatient (AMB) | payer OTHER, SELFPAY ==
--- NOTE | 2023-07-10 11:15 | MHC.OFFVIS ---
Intake Intake Visit Reasons: PO-Left quad tendon repair 05/07/23 NE Intake Note: This is a 67 year old male that presents for a post op appointment for a left quad tendon repair on 05/07/23 with NE. The patient reports he continues to wear his brace and is experiencing 6/10 pain when he is resting and a 9/10 with activity. Allergies Penicillins [PENICILLINS] Allergy (Severe, Verified 07/10/23 11:16) RASH jay pepper Allergy (Intermediate, Verified 07/10/23 11:16) Rash pepper (genus Capsicum) Adverse Reaction (Intermediate, Verified 07/10/23 11:16) rashes Medication List - Last Reconciled 07/10/23 by Janae Dias RN acetaminophen 650 mg (2 x 325 mg) PO Q6H PRN 30 days atorvastatin 20 mg PO DAILY 30 days [bed rail As directed] benazepril 40 mg PO DAILY blood pressure monitor As directed Brace,wrist right hand wrist splint celecoxib 200 mg PO BID 30 days [chair lift As directed] cholecalciferol (vitamin D3) 50 mcg PO DAILY cyclobenzaprine 10 mg PO BEDTIME PRN 90 days docusate sodium 100 mg PO BID 7 days docusate sodium 100 mg PO BID 14 days dulaglutide (Trulicity) 1.5 mg (0.5 mL) subcut QWEEK 90 days enoxaparin 40 mg (0.4 mL) subcut Q24H 42 days fenofibrate nanocrystallized 145 mg PO DAILY 90 days flash glucose scanning reader ([employer]Style Tirso 14 Day [place]) As directed flash glucose sensor (FreeStyle Tirso 2 Sensor kit) As directed furosemide 20 mg PO DAILY 90 days hydralazine 25 mg PO TID 90 days icosapent ethyl (Vascepa) 2 grams (2 x 1 gram) PO BID 30 days insulin degludec (Tresiba FlexTouch U-200 insulin) 55 units (0.275 mL) subcut BEDTIME 90 days latanoprost 0.005% 1 drp ophthalmic (eye) BEDTIME [leg veterinary anatomist As directed] lorazepam 1 mg PO BID PRN 30 days metformin ER 500 mg PO BID 90 days oxycodone 10 mg PO Q6H PRN 30 days pen needle, diabetic five times a day sennosides (senna) 8.6 mg PO BEDTIME PRN 90 days Shower Chair As directed sitagliptin phosphate (Januvia) 25 mg PO DAILY 90 days [sock aid As directed] walker As directed walker (Ultra-Light Rollator [facility] [place]) with seat HPI PO-Left quad tendon repair 05/07/23 NE HPI Details Carlos is a 67 year old man who presents ~2 months S/P left quad tendon repair. He complains of severe pain with activity, which improves somewhat, but is still present, when at rest. He continues to wear his brace and has been attending PT. [facility] Medical History (Updated 06/12/23 @ 09:21 by YANG Malin) Essential hypertension Numbness and tingling in right hand Numbness and tingling in left hand Diabetes mellitus Knee osteoarthritis Mild recurrent major depression Mixed hyperlipidemia Right shoulder pain Right knee pain Left knee pain CKD (chronic kidney disease), stage III Low back pain Multiple falls Syncope DAVINA (acute kidney injury) Obesity due to excess calories Lumbar spondylosis Proteinuria Arthritis Hypertriglyceridemia Hypertension Diabetic polyneuropathy associated with type 2 diabetes mellitus Type 2 diabetes mellitus with other diabetic kidney complication Lumbar stenosis Surgical History History of surgery on lower extremity History of total left knee replacement (TKR) S/P evacuation of hematoma Hx of cataract surgery History of lumbar surgery Hx of eye surgery History of back surgery Family History Father Medical history unknown Mother No problems noted. Maternal Grandmother Medical history unknown Social History Household Members: None Household Members Other:: self Housing: Apartment Are you a primary long term care phlebotomist to a significant other at home: No Do you presently have visiting nurse or other home services: No Alcohol intake: never Comment: final count is correct Patient Tobacco Use Status: Former Tobacco user Quit Date: 2 yrs ago Tobacco use type: Cigarette Years Smoked: 25 e-Cigarette/Vaping Use: Never Used Second Hand Smoke Exposure: No service: Yes Current occupational status: disabled Cognitive needs: Yes (walker) Hearing needs: No Vision needs: Yes (reading glasses) Review of Systems Const All systems reviewed & are unremarkable except as noted in HPI and below Physical Exam Const General: no acute distress, alert and awake Orientation/consciousness: patient oriented x3 HEENT Head: Yes normocephalic and Yes atraumatic Eyes EOM: EOMs intact bilaterally Resp Effort & Inspection: normal respiratory effort and able to speak in complete sentences Cardio Jugular venous distension: no JVD Skin General skin exam: turgor normal Rashes: no rashes Neuro General: patient oriented x3 Extrem Other: 0-120 deg motion No quad lag no palpable defect Psych Appearance: grossly normal Affect: normal affect Attitude: cooperative Assessment & Plan Assessment & Plan (1) Status post total knee replacement, left: Code(s): Z96.652 - Presence of left artificial knee joint Plan: quad intact with good motion knee brace 0-90 when ambulating continue strengthening and fall prevention ok to travel (2) Rupture of left quadriceps tendon: Comment: Left quad repair, 04/15/2023 NE; re-ruptured on 05/04/2023. Code(s): S76.112A - Strain of left quadriceps muscle, fascia and tendon, initial encounter Qualifiers: Encounter type: subsequent encounter Qualified Code(s): S76.112D - Strain of left quadriceps muscle, fascia and tendon, subsequent encounter Plan Scribed for Wesley Apple MD by John Archer, medical resident, on 07/10/23 at 11:30 AM, EST. Coding Level of Care Code Global (30300) Diagnoses Status post total knee replacement, left Z96.652 Rupture of left quadriceps tendon, subsequent encounter S76.112D Encounter type: subsequent encounter
== END 2023-07-10 11:57 | disposition home or self-care (01) ==
PROVIDERS: PCP Internal Medicine; Visit Provider Orthopaedic Surgery
DX: Z96.652 Presence of left artificial knee joint (principal); S76.112D Strain of left quadriceps muscle, fascia and tendon, subsequent encounter
CPT/HCPCS: 99024

== ENCOUNTER 2023-08-05 15:00 | Outpatient (AMB) | payer OTHER, SELFPAY ==
[2023-08-05 15:14] VITALS: BMI 33.8
--- NOTE | 2023-08-05 15:14 | MHC.OFFVIS ---
Intake Vital Signs 08/05/23 15:14 Height 5 ft 8 in Weight 222 lb BMI 33.8 Intake Visit Reasons: new prob- right CTS Intake Note: Carlos 67 yr old right hand dominant male presents today for a new problem visit for his right hand CTS. States his symptoms started about - ago and has worsen. Also has CTS on her left however states his right hand is worse. EMG done. Patient would like to discuss surgery. Allergies Penicillins [PENICILLINS] Allergy (Severe, Verified 07/10/23 11:16) RASH jay pepper Allergy (Intermediate, Verified 07/10/23 11:16) Rash pepper (genus Capsicum) Adverse Reaction (Intermediate, Verified 07/10/23 11:16) rashes HPI new prob- right CTS HPI Details Carlos is a 67 year old right hand dominant Diabetic man who presents for a NCS review for his bilateral hand numbness. He complains of numbness in all of his fingers bilaterally. his primary complaint today is of numbness in his right hand. He says his fingers are numb all the time and he has difficulty & weakness when trying to recycling operations manager or hold objects such as a pencil. He complains of numbness radiating up his arms as well, which bothers him. He denies any prior treatment and would like to discuss surgery. He is a Diabetic, and his most recent HgA1c was 6.2%. He is listed as having a hx of Diabetic polyneuropathy. He has a hx of CKD stage III [facility] Medical History (Updated 08/05/23 @ 15:20 by John Archer) Diabetes mellitus Essential hypertension Numbness and tingling in right hand Numbness and tingling in left hand Knee osteoarthritis Mild recurrent major depression Mixed hyperlipidemia Right shoulder pain Right knee pain Left knee pain CKD (chronic kidney disease), stage III Low back pain Multiple falls Syncope DAVINA (acute kidney injury) Obesity due to excess calories Lumbar spondylosis Proteinuria Arthritis Hypertriglyceridemia Hypertension Diabetic polyneuropathy associated with type 2 diabetes mellitus Type 2 diabetes mellitus with other diabetic kidney complication Lumbar stenosis Surgical History History of surgery on lower extremity History of total left knee replacement (TKR) S/P evacuation of hematoma Hx of cataract surgery History of lumbar surgery Hx of eye surgery History of back surgery Family History Father Medical history unknown Mother No problems noted. Maternal Grandmother Medical history unknown Social History Household Members: None Household Members Other:: self Housing: Apartment Are you a primary care management specialist to a significant other at home: No Do you presently have visiting nurse or other home services: No Alcohol intake: never Comment: final count is correct Patient Tobacco Use Status: Former Tobacco user Quit Date: 2 yrs ago Tobacco use type: Cigarette Years Smoked: 25 e-Cigarette/Vaping Use: Never Used Second Hand Smoke Exposure: No service: Yes Current occupational status: disabled Cognitive needs: Yes (walker) Hearing needs: No Vision needs: Yes (reading glasses) Review of Systems Const All systems reviewed & are unremarkable except as noted in HPI and below Physical Exam Vital Signs: BMI result Body Mass Index 33.8 Const General: cooperative, healthy appearing and no acute distress Orientation/consciousness: patient oriented x3 HEENT Head: Yes normocephalic and Yes atraumatic Eyes EOM: EOMs intact bilaterally Resp Effort & Inspection: normal respiratory effort and able to speak in complete sentences Cardio Jugular venous distension: no JVD Skin General skin exam: turgor normal Rashes: no rashes Neuro General: patient oriented x3 Extrem Other: Evaluation of Bilateral Upper Extremity: The patient is alert, oriented, and in no acute distress Neuro: Dense numbness to the tips of all digits bilaterally today in clinic No thenar or intrinsic wasting Good APB muscle belly firing and good finger cross Vascular: Cap refill brisk ROM: He can make a fist and extend all his digits No locking or catching Skin: No lacerations or abrasions. General: No Ecchymosis. No Erythema or evidence of infection. Nerve Conduction Study: Mild right carpal tunnel syndrome Early left carpal tunnel syndrome Dr. Mitchell 05/21/23 Psych Appearance: grossly normal Affect: normal affect Attitude: cooperative Assessment & Plan Assessment & Plan (1) Carpal tunnel syndrome of left wrist: Code(s): G56.02 - Carpal tunnel syndrome, left upper limb (2) Right carpal tunnel syndrome: Code(s): G56.01 - Carpal tunnel syndrome, right upper limb (3) Diabetes mellitus: Code(s): E11.9 - Type 2 diabetes mellitus without complications (4) Diabetic polyneuropathy associated with type 2 diabetes mellitus: Code(s): E11.42 - Type 2 diabetes mellitus with diabetic polyneuropathy Plan Assessment & Plan: 1. Right carpal tunnel syndrome, mild With dense numbness I educated him about this condition I discussed operative and non-operative treatment options The patient would like to proceed with surgery, beginning with the right side The risks and benefits of operative treatment were discussed with the patient and the patient wishes to proceed with surgery. These risks include, but are not limited to risk of damage to blood vessels, nerves, tendons, infection, recurrence, incomplete relief of preoperative symptoms, persistent pain, possible need for further surgery and the risks associated with regional blocks and anesthesia. The plan is to take the patient to the operating room sometime in the next few weeks for the following procedures: 1. Right carpal tunnel release, under local All of the preoperative paperwork including the consent was reviewed today. All the patient's questions were answered. The patient understands that they will be contacted by our operations scheduler soon to schedule this procedure He denies blood thinners, asthma, heart, lung issues He is a Diabetic, his most recent HgA1c on file was 6.2% on 04/07/23. We will need an updated HgA1c prior to surgery He has a hx of Stage III CKD & is listed as having a hx of Diabetic polyneuropathy 2. Left carpal tunnel syndrome, early With dense numbness He will follow up to discuss treatment options at a later date He was fitted for a velcro wrist brace to wear at night 3. Bilateral hand numbness Patient reports dense numbness to all digits including in the ulnar nerve distribution bilaterally Scribed for Mirella Zuluaga MD by John Archer, medical services coordinator, on 08/05/23 at 3:25 PM, EST. Coding Level of Care Code Est Pt Level 4 (23715) Diagnoses Carpal tunnel syndrome of left wrist G56.02 Right carpal tunnel syndrome G56.01 Diabetes mellitus E11.9 Diabetic polyneuropathy associated with type 2 diabetes mellitus E11.42
== END 2023-08-05 15:45 | disposition home or self-care (01) ==
PROVIDERS: PCP Internal Medicine; Visit Provider Orthopaedic Surgery
DX: G56.03 Carpal tunnel syndrome, bilateral upper limbs (principal); E11.42 Type 2 diabetes mellitus with diabetic polyneuropathy
CPT/HCPCS: 99214

== ENCOUNTER → 2023-08-05 15:00 | Outpatient (BNVA) | payer OTHER, SELFPAY | PROVIDERS: PCP Internal Medicine; Visit Provider Orthopaedic Surgery | DX: G56.03 Carpal tunnel syndrome, bilateral upper limbs (principal); E11.42 Type 2 diabetes mellitus with diabetic polyneuropathy | CPT/HCPCS: 99212 ==

== ENCOUNTER 2023-08-10 00:01 | Emergency (ER) | payer OTHER, SELFPAY ==
--- NOTE | 2023-08-10 | ECG_ITS ---
Test Reason : CHEST PAIM Blood Pressure : / mmHG Vent. Rate : 086 BPM Atrial Rate : 086 BPM P-R Int : 152 ms QRS Dur : 096 ms QT Int : 368 ms P-R-T Axes : 039 -24 052 degrees QTc Int : 440 ms Normal sinus rhythm Normal ECG When compared with ECG of 22-JAN-2023 11:13, No significant change was found Referred By: Generic ED Physician Electronically Signed By:QUINCY JEFFERSON MD
--- NOTE | ~2023-08-10 | XR_ITS ---
EXAMINATION: XR CHEST CLINICAL INFORMATION: Chest pain, rule out pneumonia, pneumothorax COMPARISON: Chest x-ray 11/07/2020 TECHNIQUE: Frontal view of the chest was obtained. FINDINGS: Low lung volumes. No focal airspace consolidation. No pleural effusion or pneumothorax. Cardiomediastinal silhouette within normal limits. Bilateral shoulder osteoarthritis. XR/XR chest 1V IMPRESSION: No active cardiopulmonary process.
[2023-08-10 00:11] VITALS: BP 134/78; PULSE 68; O2SAT 98
[2023-08-10 00:19] VITALS: BP 127/66; PULSE 85; RESP 15; O2SAT 95; BMI 34.0
[2023-08-10 00:21] VITALS: BP 127/66; PULSE 87; RESP 16; O2SAT 96
--- NOTE | 2023-08-10 00:28 | ED_ITS ---
HPI - Chest Pain General Chief Complaint: Chest Pain Stated Complaint: Chest Pain Time Seen by Provider: 08/10/23 00:12 Source: patient Mode of arrival: ambulatory Limitations: language barrier (Patient's 1st language is [place], he does speak German, director of curriculum was used) History of Present Illness HPI narrative: 67-year-old male with history of diabetes mellitus, hypertension, hyperlipidemia, chronic kidney disease, lower back pain, arthritis, lumbar stenosis who presents emergency department for evaluation of chest pain. He states chest pain started 1-1/2 hours prior to coming to emergency department while he was watching television. The pain came on gradually and then became severe. Points to his sternum and left chest when asked to localize the pain. He describes the pain is a tightness which is 10/10. He denied associated symptoms such as neck, jaw or arm pain, the pain does not radiate to his back, he denied lightheadedness, dizziness, diaphoresis, nausea or vomiting. Patient states that he took aspirin at home prior to coming to the emergency department. He was not given any medications by the EMS. 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 #1 ea 04/22/23 sock aid #1 ea 04/22/23 flash glucose scanning reader #1 ea 04/25/23 (FreeStyle Tirso 14 Day [place]) cyclobenzaprine 10 mg tablet 10 mg PO BEDTIME PRN muscle spasm 04/29/23 90 days #90 tabs fenofibrate nanocrystallized 145 145 mg PO DAILY 90 days #90 tabs 04/29/23 mg tablet furosemide 20 mg tablet 20 mg PO DAILY 90 days #90 tabs 04/29/23 sitagliptin phosphate 25 mg tablet 25 mg PO DAILY 90 days #90 tabs 04/29/23 (Januvia) atorvastatin 20 mg tablet 20 mg PO DAILY 30 days #30 tabs 05/07/23 icosapent ethyl 1 gram capsule 2 g (2 x 1 gram) PO BID 30 days 05/07/23 (Vascepa) #120 caps insulin degludec 200 unit/mL (3 55 unit (0.275 mL) subcut BEDTIME 05/07/23 mL) subcutaneous pen (Tresiba 90 days #24.75 mL FlexTouch U-200 insulin) metformin 500 mg tablet,extended 500 mg PO BID 90 days #180 tabs 05/07/23 release 24 hr pen needle, diabetic 31 gauge x #200 ea 05/07/23 5 docusate sodium 100 mg capsule 100 mg PO BID 7 days #14 caps 05/09/23 dulaglutide 1.5 mg/0.5 mL 1.5 mg (0.5 mL) subcut QWEEK 90 05/09/23 subcutaneous pen injector days #6.5 mL (Trulicity) enoxaparin 40 mg/0.4 mL 40 mg (0.4 mL) subcut Q24H 42 days 05/09/23 subcutaneous syringe #16.8 mL Shower Chair #1 ea 05/13/23 hydralazine 25 mg tablet 25 mg PO TID 90 days #270 tabs 05/14/23 acetaminophen 325 mg tablet 650 mg (2 x 325 mg) PO Q6H PRN 05/27/23 fever 30 days #180 tabs Brace,wrist #1 ea 06/02/23 cholecalciferol (vitamin D3) 50 50 mcg PO DAILY #90 tabs 06/12/23 mcg (2,000 unit) tablet benazepril 40 mg tablet 40 mg PO DAILY #30 tabs 07/01/23 celecoxib 200 mg capsule 200 mg PO BID 30 days #60 caps 07/01/23 docusate sodium 100 mg capsule 100 mg PO BID 14 days #28 caps 07/23/23 flash glucose sensor (FreeStyle #1 ea 07/23/23 Tirso 2 Sensor kit) oxycodone 10 mg tablet 10 mg PO Q6H PRN Pain, 07/23/23 Moderate(Pain Scale 4-6) 30 days #120 tabs sennosides 8.6 mg tablet (senna) 8.6 mg PO BEDTIME PRN constipation 07/23/23 90 days #90 tabs Allergies Allergy/AdvReac Type Severity Reaction Status Date / Time Penicillins [PENICILLINS] Allergy Severe RASH Verified 07/10/23 11:16 jay pepper Allergy Intermediate Rash Verified 07/10/23 11:16 pepper (genus Capsicum) AdvReac Intermediate rashes Verified 07/10/23 11:16 Review of Systems 2 Review of Systems: Yes all other systems are reviewed and are negative [facility] Past Medical History [facility] Narrative: Past medical history: Diabetes mellitus, hypertension, arthritis. Surgical history: He states he has had 3 surgeries on his back and 3 surgeries on his knees. Social history: The patient is a former smoker and stop smoking 1 year prior, he states he smoked for many years and he can not give me a number. He denies alcohol use. He denies drug use. Medical History (Updated 08/10/23 @ 01:49 by Francis Wesley MD) Diabetes mellitus Essential hypertension Numbness and tingling in right hand Numbness and tingling in left hand Knee osteoarthritis Mild recurrent major depression Mixed hyperlipidemia Right shoulder pain Right knee pain Left knee pain CKD (chronic kidney disease), stage III Low back pain Multiple falls Syncope DAVINA (acute kidney injury) Obesity due to excess calories Lumbar spondylosis Proteinuria Arthritis Hypertriglyceridemia Hypertension Diabetic polyneuropathy associated with type 2 diabetes mellitus Type 2 diabetes mellitus with other diabetic kidney complication Lumbar stenosis Surgical History History of surgery on lower extremity History of total left knee replacement (TKR) S/P evacuation of hematoma Hx of cataract surgery History of lumbar surgery Hx of eye surgery History of back surgery Family History Family History Father Medical history unknown Mother No problems noted. Maternal Grandmother Medical history unknown Social History Social History Household Members: None Household Members Other:: self Housing: Apartment Are you a primary rn palliative care to a significant other at home: No Do you presently have visiting nurse or other home services: No Alcohol intake: never Comment: final count is correct Patient Tobacco Use Status: Former Tobacco user Quit Date: 2 yrs ago Tobacco use type: Cigarette Years Smoked: 25 Smoked in Last 30 Days: No e-Cigarette/Vaping Use: Never Used Second Hand Smoke Exposure: No Use of substances other than those prescribed or required for medical reasons: No Advance Directives: No Advance Directives Information Provided: No service: Yes Current occupational status: disabled Cognitive needs: Yes (walker) Hearing needs: No Vision needs: Yes (reading glasses) Physical Exam 2 Vital Signs: Vital Signs: Last Vital Signs Pulse 87 08/10/23 00:21 Resp 16 08/10/23 00:21 BP 127/66 08/10/23 00:21 Pulse Ox 96 08/10/23 00:21 O2 Del Method Room Air 08/10/23 00:21 BMI result Body Mass Index 34.0 Vital signs were normal Exam: General: Awake, alert , appears to be in moderate distress secondary to his pain Head: Normocephalic, atraumatic EENT: PERRL, Lids normal, sclera normal, conjunctiva normal, nose normal , ears normal, throat without erythema or exudates Neck: Supple, no adenopathy Lung: breath sounds symmetric, no wheezing, rales or rhonchi Chest: symmetric movement, moderate left-sided costochondral and sternal tenderness Heart: regular rate and rhythm, normal S1, S2 no murmurs or rubs Abdomen: soft, non-tender, nondistended, normal bowel sounds Back: no vertebral tenderness, no CVAT Extremities: no deformities, moves all extremities symmetrically Neuro: Awake, alert, oriented, normal speech, cranial nerves intact, moves all extremities symmetrically Psych: Pleasant, cooperative Medications Administered Discontinued Medications Generic Name Dose Route Start Last Admin Trade Name Boomq PRN Reason Stop Dose Admin Morphine Sulfate 4 mg 08/10/23 00:29 08/10/23 00:37 Morphine Sulfate 4 Mg/Ml Cartridge IVPUSH 08/10/23 00:30 4 mg ONCE STA Administration Protocol Ondansetron HCl 4 mg 08/10/23 00:29 08/10/23 00:37 Ondansetron Hcl 4 Mg/2 Ml Vial IVPUSH 08/10/23 00:30 4 mg ONCE ONE Administration Medical Decision Making Medical Decision Making MDM Narrative: 67-year-old male with history of diabetes mellitus, hypertension, hyperlipidemia, chronic kidney disease, lower back pain, arthritis, lumbar stenosis who presents emergency department for evaluation of sternal and left- sided chest tightness which began 1-1/2 hours prior to coming to emergency department while he was watching TV, no associated symptoms, pain is 10/10 at its worst. Vital signs were normal. Physical examination did reveal that he was in distress secondary to his pain, he did have left-sided chest wall tenderness. Differential diagnosis: Myocardial ischemia, myocardial infarction, pericarditis, costochondritis, musculoskeletal pain, pneumothorax, Following evaluation was ordered: CBC, CMP, BNP, troponin, PT/INR, PTT, lipase, chest x-ray one view, EKG Patient was treated with the following: environmental monitoring specialist, IV insertion, pulse ox monitoring, morphine 4 mg IV, Zofran 4 mg IV 01:41 Patient had minimal who leave this pain with the above treatment. Patient still points to his sternum and left chest when asked to localize pain, patient was treated with morphine 4 mg IV and Toradol 15 mg IV. My independent interpretation patient's laboratory evaluation is as follows: CBC was normal. CMP was normal except for an elevated glucose of 250. Troponin at 00:42 hours was below detectable limits, repeat troponin was ordered for 03:42 hours. The patient's care was turned over to my colleague, Dr. Anna Johnston. Admission/Observation Consideration of admission/observation: Escalation of care including admission/observation considered Lab Data 08/10/23 00:42 08/10/23 00:42 Labs: Lab Results 08/10/23 Range/Units 00:42 WBC 9.2 (4.8-10.8) X10*3/uL RBC 4.98 (4.60-5.80) X10*6/uL Hgb 13.5 L (14.0-18.0) g/dl Hct 40.8 L (42.0-52.0) % MCV 81.9 (80.0-98.0) fL MCH 27.1 (27.0-33.0) pg MCHC 33.1 (31.0-36.0) g/dl RDW 16.2 H (11.0-16.0) % Plt Count 239 (160-400) X10*3/uL MPV 11.4 (9.4-12.4) fL Immature Gran % (Auto) 0.2 (0.0-0.4) % Neut % (Auto) 72.7 (45-73) % Lymph % (Auto) 15.6 L (20-40) % Rooks % (Auto) 7.0 (2-11) % Eos % (Auto) 4.0 (0-4) % Baso % (Auto) 0.5 (0-2) % Lymph # (Auto) 1.4 (1.2-4.9) X10*3/uL Rooks # (Auto) 0.6 (0.1-1.2) X10*3/uL Eos # (Auto) 0.4 (0.0-0.4) X10*3/uL Baso # (Auto) 0.1 (0.0-0.2) X10*3/uL Abs Immat Gran (auto) 0.02 (0.00-0.03) X10*3/uL Absolute Neuts (auto) 6.7 (2.0-8.3) x10*3/uL Absolute Nucleated RBC 0.000 (0.0-0.012) X10*3/uL Nucleated RBC % (auto) 0.0 (0.0-0.2) /100WBC PT 10.8 L (11.1-13.3) SEC INR 0.9 (0.9-1.1) APTT 31.9 (26.0-36.8) SEC Sodium 140 (135-145) mmol/L Potassium 3.8 (3.3-5.1) mmol/L Chloride 109 H (96-108) mmol/L Carbon Dioxide 20 L (22-29) mmol/L Anion Gap 15 (12-20) BUN 17 H (9-16) mg/dL Creatinine 1.23 (0.5-1.4) mg/dL Estim Creat Clear Calc 67.2 Estimated GFR 59 Random Glucose 250 H (60-115) mg/dL Calcium 8.8 D (8.4-10.2) mg/dL Total Bilirubin 0.3 (0.0-1.0) mg/dL AST 35 (5-37) U/L ALT 37 (0-40) U/L Alkaline Phosphatase 105 (39-117) U/L Troponin I High Sens < 2.7 (<3.5-35.0) ng/L B-Natriuretic Peptide 18 (<100) pg/mL Total Protein 7.1 (6.5-8.0) g/dL Albumin 3.9 (3.5-5.0) g/dL Lipase 58 (8-78) U/L Independent Interpretation I performed an independent interpretation of an: EKG Interpretation: My interpretation patient's 12 EKG done at 00:14 hours is as follows: Normal sinus rhythm rate of 86, normal OK interval, QRS duration QTC interval, no ST segment elevation, no ST segment depression, no significant T-wave abnormalities, no PACs, no PVCs-this is a normal EKG My interpretation of the patient's one-view chest x-ray is as follows: No acute disease Radiology Impression Discussion of test interpretation with radiology: I have reviewed the radiologist's reading. Radiologist Impression: XR chest 1V IMPRESSION: No active cardiopulmonary process. Dictated By: Angel Bush Discharge Plan Discharge Clinical Impression: Chest pain Patient Disposition: Still a Patient Prescriptions: No Action (DME) walker Misc See Rx Instructions .ROUTE .MEDSUPPLY Qty: 1 0RF Rx Instructions: As directed (DME) Ultra-Light Rollator Replaced By [facility] See Rx Instructions .ROUTE .MEDSUPPLY Qty: 1 0RF Rx Instructions: with seat lorazepam 1 mg tablet 1 mg PO BID PRN (Reason: Anxiety) 30 Days Qty: 45 0RF Rx Instructions: PATIENT IS NON-ADHERENT. 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 See Rx Instructions .Route .MEDSUPPLY Qty: 1 0RF Rx Instructions: As directed (DME) bed rail See Rx Instructions .Route .MEDSUPPLY Qty: 1 0RF Rx Instructions: As directed (DME) FreeStyle Tirso 14 Day [place] Replaced By [facility] See Rx Instructions .ROUTE .MEDSUPPLY Qty: 1 0RF Rx Instructions: As directed cyclobenzaprine 10 mg tablet 10 mg PO BEDTIME PRN (Reason: muscle spasm) 90 Days Qty: 90 1RF fenofibrate nanocrystallized 145 mg tablet 145 mg PO DAILY 90 Days Qty: 90 1RF furosemide 20 mg tablet 20 mg PO DAILY 90 Days Qty: 90 1RF Januvia 25 mg tablet 25 mg PO DAILY 90 Days Qty: 90 1RF atorvastatin 20 mg tablet 20 mg PO DAILY 30 Days Qty: 30 4RF icosapent ethyl [Vascepa] 1 gram capsule 2 g PO BID 30 Days Qty: 120 4RF Tresiba FlexTouch U-200 200 unit/mL (3 mL) insulin pen 55 unit subcut BEDTIME 90 Days Qty: 24.75 4RF Rx Instructions: took 25 units sc 04/14/23 pm metformin 500 mg tablet extended release 24 hr 500 mg PO BID 90 Days Qty: 180 1RF (DME) pen needle, diabetic 31 gauge x 5/16 needle See Rx Instructions subcut .MEDSUPPLY Qty: 200 4RF Rx Instructions: five times a day Trulicity 1.5 mg/0.5 mL pen injector 1.5 mg subcut QWEEK 90 Days Qty: 6.5 1RF (DME) Shower Chair Misc See Rx Instructions .Route Qty: 1 0RF Rx Instructions: As directed hydralazine 25 mg tablet 25 mg PO TID 90 Days Qty: 270 1RF acetaminophen 325 mg tablet 650 mg PO Q6H PRN (Reason: fever) 30 Days Qty: 180 6RF (DME) Brace,wrist Misc See Rx Instructions .Route Qty: 1 0RF Rx Instructions: right hand wrist splint cholecalciferol (vitamin D3) 50 mcg (2,000 unit) tablet 50 mcg PO DAILY Qty: 90 0RF benazepril 40 mg tablet 40 mg PO DAILY Qty: 30 1RF Hold Instructions: Resume on 11/16/20. Stop taking until repeat lab work is checked. celecoxib 200 mg capsule 200 mg PO BID 30 Days Qty: 60 1RF (DME) FreeStyle Tirso 2 Sensor Kit See Rx Instructions .Route Qty: 1 0RF Rx Instructions: As directed sennosides [senna] 8.6 mg tablet 8.6 mg PO BEDTIME PRN (Reason: constipation) 90 Days Qty: 90 1RF docusate sodium 100 mg capsule 100 mg PO BID 14 Days Qty: 28 0RF oxycodone 10 mg tablet 10 mg PO Q6H PRN (Reason: Pain, Moderate(Pain Scale 4-6)) 30 Days Qty: 120 0RF Rx Instructions: Partial Fill upon patient request. latanoprost 0.005 % drops 1 drp ophthalmic (eye) BEDTIME Rx Instructions: 1 drop into both eyes enoxaparin 40 mg/0.4 mL Syringe 40 mg subcut Q24H 42 Days Qty: 16.8 0RF docusate sodium 100 mg Capsule 100 mg PO BID 7 Days Qty: 14 0RF (DME) blood pressure monitor Kit See Rx Instructions .Route Qty: 1 0RF Rx Instructions: As directed (DME) chair lift See Rx Instructions .Route .MEDSUPPLY Qty: 1 0RF Rx Instructions: As directed
[2023-08-10] MEDS: ondansetron HCL 4 MG/2 ML VIAL IVPUSH (00:37)
[2023-08-10] MEDS: Morphine Sulfate 4 MG/ML CARTRIDGE IVPUSH ×2 (00:37→01:47)
[2023-08-10 00:48] LABS: MANUAL DIFF FLAG NO
[2023-08-10 00:50] LABS: Basophils Absolute Auto 0.1 X10*3/uL (0.0-0.2); Basophils Percent Auto 0.5 % (0-2); Eosinophils Absolute Auto 0.4 X10*3/uL (0.0-0.4); Hematocrit 40.8 % (42.0-52.0); Hemoglobin 13.5 g/dl (14.0-18.0); Imm Gran Abs Auto 0.02 X10*3/uL (0.00-0.03); Imm Gran Pct Auto 0.2 % (0.0-0.4); Lymphocytes Absolute Auto 1.4 X10*3/uL (1.2-4.9); Lymphocytes Percent Auto 15.6 % (20-40); Mean Corpuscular HGB Conc 33.1 g/dl (31.0-36.0); Mean Corpuscular Hemoglobin 27.1 pg (27.0-33.0); Mean Corpuscular Volume 81.9 fL (80.0-98.0); Mean Platelet Volume 11.4 fL (9.4-12.4); Monocytes Absolute Auto 0.6 X10*3/uL (0.1-1.2); Neutrophils Absolute Auto 6.7 x10*3/uL (2.0-8.3); Neutrophils Percent Auto 72.7 % (45-73); Platelet Count 239 X10*3/uL (160-400); Red Blood Count 4.98 X10*6/uL (4.60-5.80); Red Cell Distribution Width 16.2 % (11.0-16.0); White Blood Count 9.2 X10*3/uL (4.8-10.8)
[2023-08-10 00:55] LABS: INTERNATIONAL NORM RATIO 0.9 (0.9-1.1); Prothrombin Time 10.8 SEC (11.1-13.3)
[2023-08-10 00:58] LABS: Partial Thromboplastin Time 31.9 SEC (26.0-36.8)
[2023-08-10 01:09] LABS: Alanine Aminotransferase 37 U/L (0-40); Albumin Level 3.9 g/dL (3.5-5.0); Alkaline Phosphatase 105 U/L (39-117); Anion Gap 15 (12-20); Aspartate Amino Transferase 35 U/L (5-37); Bilirubin Total 0.3 mg/dL (0.0-1.0); Blood Urea Nitrogen 17 mg/dL (9-16); Calcium 8.8 mg/dL (8.4-10.2); Carbon Dioxide 20 mmol/L (22-29); Chloride 109 mmol/L (96-108); Creatinine Clr Calc Pharmacy 67.2; Estimated Glomerular Filt Rate 59; Glucose Random 250 mg/dL (60-115); Lipase 58 U/L (8-78); Potassium 3.8 mmol/L (3.3-5.1); Sodium 140 mmol/L (135-145); Total Protein 7.1 g/dL (6.5-8.0)
[2023-08-10 01:16] LABS: B Type Natriuretic Peptide 18 pg/mL (<100)
[2023-08-10 01:21] LABS: Troponin-I High Sensitivity < 2.7 ng/L (<3.5-35.0)
[2023-08-10] MEDS: Ketorolac Tromethamine 15 MG/ML VIAL IVPUSH (01:47)
[2023-08-10 04:20] LABS: Troponin-I High Sensitivity < 2.7 ng/L (<3.5-35.0)
[2023-08-10 04:43] VITALS: BP 104/66; PULSE 86; RESP 19; TEMP 36.7; O2SAT 95
== END 2023-08-10 05:45 | disposition home or self-care (01) ==
PROVIDERS: Emergency Medicine; Emergency Provider Emergency Medicine Emergency Medical Services; PCP Student in an Organized Health Care Education/Training Program
DX: R07.89 Other chest pain (principal); R06.02 Shortness of breath; Z87.891 Personal history of nicotine dependence; Z79.899 Other long term (current) drug therapy
CPT/HCPCS: 36415; 71045; 80053; 83690; 83880; 84484; 85025; 85610; 85730; 93005; 96374; 96375; 96376; 99284; 99285; J1885; J2270; J2405

== ENCOUNTER → 2023-08-10 00:14 | Outpatient (BNV) | payer OTHER, SELFPAY | PROVIDERS: Emergency Provider Emergency Medicine Emergency Medical Services; PCP Student in an Organized Health Care Education/Training Program; Visit Provider Internal Medicine Cardiovascular Disease | DX: R07.9 Chest pain, unspecified (principal) | CPT/HCPCS: 93010 ==

== ENCOUNTER 2023-08-11 09:55 | Outpatient (AMB) | payer OTHER, SELFPAY ==
--- NOTE | 2023-08-11 09:57 | A.OFFPC_ITS ---
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 Cardiac Catheterization Required: No Accompanied by: Self / Same As Patient Allergies Penicillins [PENICILLINS] Allergy (Severe, Verified 08/11/23 10:22) RASH jay pepper Allergy (Intermediate, Verified 08/11/23 10:22) Rash pepper (genus Capsicum) Adverse Reaction (Intermediate, Verified 08/11/23 10:22) rashes Medication List - Last Reconciled 08/11/23 by Tram Álvarez MD acetaminophen 650 mg (2 x 325 mg) PO Q6H PRN 30 days atorvastatin 20 mg PO DAILY 30 days [bed rail As directed] benazepril 40 mg PO DAILY blood pressure monitor As directed Brace,wrist right hand wrist splint celecoxib 200 mg PO BID 30 days [chair lift As directed] cholecalciferol (vitamin D3) 50 mcg PO DAILY cyclobenzaprine 10 mg PO BEDTIME PRN 90 days docusate sodium 100 mg PO BID 7 days docusate sodium 100 mg PO BID 14 days dulaglutide (Trulicity) 1.5 mg (0.5 mL) subcut QWEEK 90 days enoxaparin 40 mg (0.4 mL) subcut Q24H 42 days fenofibrate nanocrystallized 145 mg PO DAILY 90 days flash glucose scanning reader (FreeStyle Tirso 14 Day [place]) As directed flash glucose sensor (FreeStyle Tirso 2 Sensor kit) As directed furosemide 20 mg PO DAILY 90 days hydralazine 25 mg PO TID 90 days icosapent ethyl (Vascepa) 2 grams (2 x 1 gram) PO BID 30 days insulin degludec (Tresiba FlexTouch U-200 insulin) 55 units (0.275 mL) subcut BEDTIME 90 days latanoprost 0.005% 1 drp ophthalmic (eye) BEDTIME [leg manager beverage As directed] lorazepam 1 mg PO BID PRN 30 days metformin ER 500 mg PO BID 90 days oxycodone 10 mg PO Q6H PRN 30 days pen needle, diabetic five times a day sennosides (senna) 8.6 mg PO BEDTIME PRN 90 days Shower Chair As directed sitagliptin phosphate (Januvia) 25 mg PO DAILY 90 days [sock aid As directed] walker As directed walker (Ultra-Light Rollator misc) with seat Tobacco use date assessed: 08/11/23 Fall risk assessment: No Falls in past year Last assessed Fall Risk: 08/11/23 Dental Screening Dental Screen Date: 08/11/23 Did you have a dental visit in the last 12 months?: No Did you have a dental problem in the last 6 months where you did not have access to dental care?: No Was dental information given to patient?: Patient has dentist HPI HPI Comments History of Present Illness Details This is a 67-year-old male with diabetes mellitus type 2 on long-term current use of insulin, hypertension, mixed hyperlipidemia and mild major depression that comes today as a hospital discharge follow-up with discharge date 08/10/2023 due to chest pain that started 2 days ago while watching TV in the middle of the chest radiating to the right upper quadrant of the abdomen. While in the hospital labs and EKG were done. EKG was normal. Labs show no significant abnormality. He had a stress test and an echocardiogram in January 2023 which were normal. I will order an ultrasound of the abdomen to rule out cholelithiasis. A1c within goal. Blood pressure elevated today but he admits that he has not take his medications yet. Blood pressure will be recheck in 3 weeks by nurse navigator. Lipid panel was order and he says his compliant with medications. Depression stable with SSRIs. Still complains of constipation even with senna and docusate. I will start him on lactulose. He walks with a walker for gait stability due to chronic low back pain. [facility] Medical History (Updated 08/11/23 @ 12:08 by Tram Álvarez MD) Diabetes mellitus Essential hypertension Numbness and tingling in right hand Numbness and tingling in left hand Knee osteoarthritis Mild recurrent major depression Mixed hyperlipidemia Right shoulder pain Right knee pain Left knee pain CKD (chronic kidney disease), stage III Low back pain Multiple falls Syncope DAVINA (acute kidney injury) Obesity due to excess calories Lumbar spondylosis Proteinuria Arthritis Hypertriglyceridemia Hypertension Diabetic polyneuropathy associated with type 2 diabetes mellitus Type 2 diabetes mellitus with other diabetic kidney complication Lumbar stenosis Surgical History History of surgery on lower extremity History of total left knee replacement (TKR) S/P evacuation of hematoma Hx of cataract surgery History of lumbar surgery Hx of eye surgery History of back surgery Family History Father Medical history unknown Mother No problems noted. Maternal Grandmother Medical history unknown Social History Household Members: None Household Members Other:: self Housing: Apartment Are you a primary career development manager to a significant other at home: No Do you presently have visiting nurse or other home services: No Alcohol intake: never Comment: final count is correct Patient Tobacco Use Status: Former Tobacco user Quit Date: 2 yrs ago Tobacco use type: Cigarette Years Smoked: 25 e-Cigarette/Vaping Use: Never Used Second Hand Smoke Exposure: No service: Yes Current occupational status: disabled Cognitive needs: Yes (walker) Hearing needs: No Vision needs: Yes (reading glasses) Questionnaire PHQ-9 Over the last 2 weeks, how often have you been bothered by any of the following problems? 1. Little interest or pleasure in doing things: not at all 2. Feeling down, depressed, or hopeless: not at all 3. Trouble falling or staying asleep, or sleeping too much: not at all 4. Feeling tired or having little energy: not at all 5. Poor appetite or overeating: not at all 6. Feeling bad about yourself - or that you are a failure or have let yourself or your family down: not at all 7. Trouble concentrating on things, such as reading the newspaper or watching television: not at all 8. Moving or speaking so slowly that other people could have noticed. Or the opposite - being so fidgety or restless that you have been moving around a lot more than usual: not at all 9. Thoughts that you would be better off or of hurting yourself in some way: not at all Total score: 0 Depression Screening Interpretation: Negative Depression Screening Done: Yes 93027 - PHQ-9 Billing: Yes Source: Developed by Drs. Jorge Hopson, Stacey BaMrio Weiss and colleagues, with an educational ahsan from [employer]. Thrive Questionnaire Date Thrive assessed: 08/11/23 I am a: Patient What is your living situation today?: I have a steady place to live Within the past 12 months, did the food you bought not last and you didn't have the money to get more?: Never true Within the past 12 months, did you worry whether your food would run out before you got money to buy more?: Never true Do you have trouble paying for medicines?: No Do you have trouble getting transportation to medical appointments?: No Do you have trouble paying your heating and electricity bill?: No Do you have trouble taking care of your child, family member or friend?: No Do you have trouble with day-to-day activities such as bathing, preparing meals, shopping, managing finances, etc.?: Yes Are you currently unemployed and looking for a job?: No Are you interested in more education?: No Please select the resources that you would like help with: None Currently or been in a relationship where the following occur: no concerns reported THRIVE Score: 0 AUDIT C Alcohol Use Questionnaire (AUDIT-C) 1. How often do you have a drink containing alcohol?: Never Total Score: 0 CHANDU-7 AMB Questionnaire CHANDU-7 Date CHANDU - 7 assessed: 08/11/23 Feeling nervous, anxious, or on edge: 0 = Not at all Not being able to stop or control worryin = Not at all Worrying too much about different things: 0 = Not at all Trouble relaxin = Not at all Being so restless that it is hard to sit still: 0 = Not at all Becoming easily annoyed or irritable: 0 = Not at all Feeling afraid as if something awful might happen: 0 = Not at all Total CHANDU-7 score (0-4 normal; 5-9 mild; 10-14 moderate; 15-21 severe): 0 Source: Developed by Drs. Jorge Hopson, Mario Gutierrez and colleagues, with an educational ahsan from [employer]. CHANDU-7 Assessment Billing CHANDU-7 Assessment Tool: CHANDU-7 Assessment 48251 Review of Systems Const All systems reviewed & are unremarkable except as noted in HPI and below Eyes Reports no additional complaints and Denies change in vision Card Denies chest pain at rest, Denies chest pain with activity, Denies edema, Denies irregular heart rhythm, Denies claudication, Denies dyspnea, Denies dyspnea on exertion, Denies orthopnea, Denies paroxysmal nocturnal dyspnea and Denies slow heart rate Resp Denies cough, Denies dyspnea and Denies dyspnea on exertion GI Reports abdominal pain, Denies change in bowel habits, Reports constipation, Denies excessive flatus, Denies nausea and Denies vomiting Denies urinary hesitancy, Denies urinary incontinence and Denies urinary urgency Musc Denies abnormal gait, Denies atrophy, Denies deformity and Denies limited range of motion Skin/Breast Denies bleeding lesions, Denies changing lesions and Denies rash Neuro Denies abnormal gait, Denies behavioral changes and Denies lack of coordination Psych Denies behavioral changes Physical exam (Primary Care) Vital Signs: Last Vital Signs BP 152/90 H 08/11/23 09:58 BMI result Body Mass Index 33.3 Tobacco/Smoking Status: Tobacco use Status Tobacco use date assessed 08/11/23 08/11/23 10:09 Patient Tobacco Use Status Former Tobacco user 08/11/23 10:09 Tobacco use type Cigarette 08/11/23 10:09 e-Cigarette/Vaping Use Never Used 08/11/23 10:09 PHQ-9: PHQ-9 Score PHQ-9: Total score 0 08/11/23 10:24 Depression Screening Interpretation: Negative Thrive Assessment: Date of Thrive Assessment Date Thrive assessed 08/11/23 08/11/23 10:09 Currently or been in a relationship where the following occur: no concerns reported Const Limitations: ambulation with walker Eyes General: appearance normal, both eyes and all related structures Eyelids: Yes eyelids normal Conjunctivae: conjunctivae normal Neck Neck: Yes normal visual inspection and Yes supple Resp Effort & Inspection: normal respiratory effort Auscultation: clear to auscultation bilaterally Cardio Jugular venous distension: no JVD Rate: regular rate Rhythm: regular rhythm Heart sounds: S1 normal heart sound present and S2 normal heart sound present GI Inspection: Yes normal to inspection Palpation (GI): Soft to palpation and Tenderness to palpation present (GI) in the RUQ Auscultation: normal bowel sounds Psych Appearance: grossly normal Results AMB Hemoglobin A1c AMB Hemoglobin A1c 5.7 % Last Edit by CARLOS A Braswell on 08/11/23 10:1 1 Results Reviewed Results Reviewed: Laboratory Last Values Hgb A1c (Clinic) 5.7 % (4.0-6.0) 08/11/23 09:57 Assessment and Plan Assessment & Plan (1) Hospital discharge follow-up: Code(s): Z09 - Encounter for follow-up examination after completed treatment for conditions other than malignant neoplasm Plan: Discharge date 08/10/2023 due to chest pain. EKG was normal and labs were within normal limits. Pain resolved within 2 hours of going to the hospital. (2) Right upper quadrant abdominal pain: Code(s): R10.11 - Right upper quadrant pain Plan: Ultrasound of the abdomen ordered. (3) Diabetes mellitus: Code(s): E11.9 - Type 2 diabetes mellitus without complications Plan: Continue insulin. A1c goal is equal or less than 7%. (4) Essential hypertension: Code(s): I10 - Essential (primary) hypertension Plan: Continue hydralazine and benazepril. Blood pressure goal is equal or less than 130/80. Recheck blood pressure with nurse navigator in 3 weeks. (5) Mild recurrent major depression: Code(s): F33.0 - Major depressive disorder, recurrent, mild Plan: Continue SSRIs. (6) Mixed hyperlipidemia: Code(s): E78.2 - Mixed hyperlipidemia Plan: Continue statins, fibrates and Vascepa. LDL goal is less than 70. Repeat lipid panel. Orders: Orders AMB Hemoglobin A1c Today E11.9 - Type 2 diabetes mellitus without complications US abdomen comp w elastography Today R10.11 - Right upper quadrant pain Lipid Panel Today E78.5 - Hyperlipidemia, unspecified Medications: New lactulose 10 grams (15 mL) PO BEDTIME 30 days PRN 237 mL 1RF constipation Discontinued docusate sodium Discontinued Reason: Patient Completed Course 100 mg PO BID 7 days 14 caps 0RF docusate sodium Discontinued Reason: Patient Completed Course 100 mg PO BID 14 days 28 caps 0RF sennosides (senna) Discontinued Reason: Patient Refused 8.6 mg PO BEDTIME 90 days PRN 90 tabs 1RF constipation Coding Level of Care Code TCM Mod MDM <= 7 Days Diagnoses Hospital discharge follow-up Z09 Right upper quadrant abdominal pain R10.11 Diabetes mellitus E11.9 Essential hypertension I10 Mild recurrent major depression F33.0 Mixed hyperlipidemia E78.2 Additional Codes CHANDU-7 Assessment Billing - CHANDU-7 Assessment Tool: CHANDU-7 Assessment 79676 ([id number]) Time Spent (min) 25
[2023-08-11 09:58] VITALS: BP 152/90; BMI 33.3
[2023-08-11 12:06] VITALS: BP 150/90
== END 2023-08-11 10:36 | disposition home or self-care (01) ==
PROVIDERS: PCP Internal Medicine; Visit Provider Internal Medicine
DX: R10.11 Right upper quadrant pain (principal); E11.9 Type 2 diabetes mellitus without complications; I10 Essential (primary) hypertension; F33.0 Major depressive disorder, recurrent, mild; E78.2 Mixed hyperlipidemia
CPT/HCPCS: 83036; 99214

== ENCOUNTER 2023-08-29 09:54 | Outpatient (REF) | payer OTHER, SELFPAY ==
--- NOTE | ~2023-08-29 | US_ITS ---
EXAMINATION: US ABDOMEN COMPLETE CLINICAL INFORMATION: Right upper quadrant pain. COMPARISON: Renal ultrasound 04/26/2022. CT abdomen and pelvis 03/27/2017. Ultrasound abdomen complete 01/31/2017. TECHNIQUE: Real-time imaging of the abdominal viscera. Limited visualization due to bowel gas. FINDINGS: PANCREAS: Poorly visualized. ABDOMINAL AORTA: Poor visualization particularly of the proximal abdominal aorta. Imaged portions of the abdominal aorta demonstrate atherosclerosis. INFERIOR VENA CAVA: Visualized portions are normal. LIVER: Increased hepatic parenchymal heterogeneity and echogenicity could be associated with hepatocellular disease/hepatic steatosis and substantially limits visualization. Correlation with liver function tests and clinical exam recommended to determine further management. GALLBLADDER: Gallbladder wall thickening 3.3 mm. Focal echogenic nonmobile area in the region of the neck of the gallbladder possibly representing nonmobile ball of sludge, gallstones or less likely a mass or focus of adenomyomatosis. Gallbladder is suboptimally distended. COMMON BILE DUCT: Normal in caliber measuring 0.5 cm in diameter. RIGHT KIDNEY: No hydronephrosis. No renal calculi. Limited visualization. The kidney measures 12.0 cm in maximum dimension. LEFT KIDNEY: No hydronephrosis. No renal calculi. Limited visualization. The kidney measures 11.4 cm in maximum dimension. SPLEEN: Normal. The spleen measures 10.6 cm in maximum dimension. FREE FLUID: None. US/US abdomen complete IMPRESSION: 1. Increased hepatic parenchymal heterogeneity and echogenicity could be associated with hepatocellular disease/hepatic steatosis and substantially limits visualization. Correlation with liver function tests and clinical exam recommended to determine further management. 2. Gallbladder wall thickening 3.3 mm. Focal echogenic nonmobile area in the region of the neck of the gallbladder possibly representing nonmobile ball of sludge, gallstones or less likely a mass or focus of adenomyomatosis. Gallbladder is suboptimally distended. Correlation with clinical exam and possible MRI recommended. This study was presented September 01, 2023 for interpretation. PSA staff will provide results to referring provider at this time.
== END 2023-08-29 09:55 | disposition home or self-care (01) ==
LOC: HO.US 09:54
PROVIDERS: PCP Internal Medicine; Visit Provider Internal Medicine
DX: R10.11 Right upper quadrant pain (principal)
CPT/HCPCS: 76700

== ENCOUNTER 2023-09-09 09:58 | Outpatient (REF) | payer OTHER, SELFPAY | END 2023-09-09 09:59 | disposition home or self-care (01) | LOC: HO.US 09:58 | PROVIDERS: PCP Internal Medicine; Visit Provider Internal Medicine | DX: Z13.89 Encounter for screening for other disorder (principal) ==

== ENCOUNTER 2023-09-09 13:00 | Outpatient (RCR) | payer OTHER, SELFPAY ==
--- NOTE | 2023-05-21 13:11 | MHC.PT.EP ---
[facility] Office [place] Office [place] Office [address] Stef Bland [address] [phone] F: [phone] F: [phone] F: [phone] F: [phone] Physical Therapy Plan of Care Date of Evaluation: 05/21/23 Date of Surgery: 05/07/23 Diagnosis: Assessment: 67 y/o male referred to PT with L quad tendon repair. He is s/p L TKA 02/11/23 with complication of L quad tendon rupture and repair on 04/15/23. He then ruptured L quad tendon again after slip and fall in shower with second quad tendon repair done on 05/07/23. He is wearing Don Talon brace locked in extension (however he was not wearing it correctly). Reports difficulty with everything - dressing, bathroom, getting in/out of bed, walking, and ADL's. He has a CARE WORKER everyday who assists with ADL's and iADL's. Examination shows significantly atrophied quad muscles with absent quad set, decreased L knee ROM (0-10-30 passive flexion), increased pain, lacks sensation in L2-4 dermatomal pattern, and impaired gait pattern. Educated pt on safety, how to wear brace locked in extension at all times, performing supported quad sets in brace at this time, and POC. Of note, he would have involuntary knee flexion twitching when brace was unlocked. Messaged Juani Campos PA-C for ROM and brace restriction on SlideJar. Frequency and Duration: The patient will be seen 2x/week for 15 weeks Short Term Goals: 6 weeks Compliant with HEP Pt will demonstrate a good quad set to facilitate gait pattern Pt will demosntrate I with Don talon brace and wear it correctly Fpc Goals: 15 weeks I with HEP and self management of sx Pt will be able to ambulate > 15 min with walker and proper heel-toe mechanics without buckling Pt will be able to I dress without compensation and pain < 3/10 Pt will improve LEFS to 40/80 (IR 18/40) Treatment Plan: Modalities to reduce pain, spasms and effusion. Manual therapy to restore motion and function. Therapeutic exercise to improve strength and flexibility. Neuromuscular re-education for posture and balance. Therapeutic activities to return to functional activities of daily living. Electronically signed by: Sandra Antoine PT Please sign and return to therapist. Thank you for your referral.
--- NOTE | 2023-09-25 11:00 | MHC.PT.DC ---
[facility] [place] [facility] [place] [facility] [place] [facility] [address] Stef Bland [address] [phone] F: [phone] F: [phone] F: [phone] F: [phone] Physical Therapy Discharge Report Diagnosis: L quad tendon repair Date of Surgery: 05/07/23 Date of Evaluation: 05/21/23 Date of Discharge: 09/25/23 Treatments to Date: 17 Cancellations to Date: 5 No Shows to Date: 3 Discharge Status: Independent with HEP Recommend MD Follow-up Discharge Summary: Pt has been admitted to inpatient hospital for gallbladder removal and will then be either d/c to home PT or rehab. DUe to other health concerns, he is d/c from PT. At time of last attended visit 09/09/23, he had improved quad set but uses hip substitution with more involved quad activities such as SAQ and SLR. He also continues with spasming of LE and low back muscles. He requires assistance from [employer] for HEP exercises. He has not met his goals most likely d/t multi faceted health and mobility reasons. Electronically signed by: Sandra Antoine PT Please sign and return to therapist. Thank you for your referral.
== END 2023-09-25 11:00 | disposition home or self-care (01) ==
LOC: HO.PT 13:00
PROVIDERS: PCP Internal Medicine; Visit Provider Physician Assistant
DX: S76.112A Strain of left quadriceps muscle, fascia and tendon, initial encounter (principal)
CPT/HCPCS: 97014; 97110; 97140; 97162

== ENCOUNTER 2023-09-18 02:02 | Inpatient (IN) | payer OTHER, SELFPAY ==
[2023-09-18] VITALS (9 sets, daily range): BP systolic 151–191; BP diastolic 76–94; PULSE 72–100; RESP 15–20; TEMP 36.6–37.1; O2SAT 92–97; BMI 33.5
--- NOTE | 2023-09-18 | ECG_ITS ---
Test Reason : MATFESR Blood Pressure : / mmHG Vent. Rate : 075 BPM Atrial Rate : 075 BPM P-R Int : 150 ms QRS Dur : 096 ms QT Int : 382 ms P-R-T Axes : 032 -26 051 degrees QTc Int : 426 ms Normal sinus rhythm Normal ECG When compared with ECG of 10-AUG-2023 00:14, No significant change was found Referred By: Generic ED Physician Electronically Signed By:QUINCY JEFFERSON MD
--- NOTE | ~2023-09-18 | CT_ITS ---
EXAMINATION: CT ABDOMEN AND PELVIS WITH CONTRAST CLINICAL INFORMATION: Cholecystitis. COMPARISON: Right upper quadrant ultrasound 09/18/2023 CT abdomen/pelvis 03/27/2017 TECHNIQUE: Multidetector volumetric images were obtained from the superior aspect of the liver through the pubic symphysis following administration 85 mL of Omnipaque 350 intravenous contrast. Sagittal and coronal reformatted images were obtained on the technologist's workstation. Oral contrast: No This CT examination was performed using dose optimization techniques as appropriate, variously including the following: *Automated exposure control *Adjustment of mA and/or kV according to patient size (this includes techniques or standardized protocols for targeted exams where dose is matched to indication/reason for exam; i.e. extremities or head) *Use of iterative reconstruction technique DLP: 854 mGy-cm FINDINGS: LUNG BASES: The visualized lung bases are unremarkable. LIVER, GALLBLADDER, AND BILIARY TREE: The liver is normal in size and contour. No suspicious hepatic lesion or biliary ductal dilatation is present. Gallbladder wall thickening with marked pericholecystic inflammatory changes. Gallstones. PANCREAS: No ductal dilatation. SPLEEN: Not enlarged. ADRENAL GLANDS: No adrenal mass. KIDNEYS AND URETERS: The kidneys are symmetric in size and enhancement. No hydronephrosis. Nonspecific perinephric stranding. BLADDER: Unremarkable. GASTROINTESTINAL TRACT: Marked fecal retention in the colon. No small bowel obstruction. Appendix is within normal limits. ABDOMINAL WALL: No significant hernia is appreciated. LYMPH NODES: No bulky lymphadenopathy. VASCULAR: No abdominal aortic aneurysm. PELVIC VISCERA: Mild prostatic enlargement. OSSEOUS STRUCTURES: No destructive bone lesions. CT/CT abdomen pelvis w IV con IMPRESSION: Findings most likely representing acute cholecystitis. This correlates with right upper quadrant ultrasound.
--- NOTE | ~2023-09-18 | US_ITS ---
EXAMINATION: US ABDOMEN LIMITED CLINICAL INFORMATION: Right upper quadrant pain. COMPARISON: 08/29/2023 TECHNIQUE: Real-time imaging of the right upper quadrant abdominal viscera. FINDINGS: GALLBLADDER: Sludge and stones in the gallbladder. Evidence of comet tail artifact suggesting cholesterolosis. Gallbladder wall thickening. Positive sonographic Christy's and. COMMON BILE DUCT: Normal in caliber measuring 0.3 cm in diameter. US/US abdomen limited IMPRESSION: Cholelithiasis. Gallbladder wall thickening. Positive sonographic Christy's sign. Findings likely represent acute cholecystitis. Consider surgical consultation.
[2023-09-18 02:45] LABS: MANUAL DIFF FLAG NO
[2023-09-18 02:48] LABS: Basophils Percent Auto 0.2 % (0-2); Eosinophils Absolute Auto 0.2 X10*3/uL (0.0-0.4); Eosinophils Percent Auto 1.7 % (0-4); Hematocrit 38.7 % (42.0-52.0); Hemoglobin 12.9 g/dl (14.0-18.0); Imm Gran Abs Auto 0.04 X10*3/uL (0.00-0.03); Imm Gran Pct Auto 0.3 % (0.0-0.4); Lymphocytes Absolute Auto 1.2 X10*3/uL (1.2-4.9); Lymphocytes Percent Auto 10.2 % (20-40); Mean Corpuscular HGB Conc 33.3 g/dl (31.0-36.0); Mean Corpuscular Hemoglobin 27.3 pg (27.0-33.0); Mean Corpuscular Volume 81.8 fL (80.0-98.0); Monocytes Absolute Auto 0.8 X10*3/uL (0.1-1.2); Monocytes Percent Auto 6.6 % (2-11); Neutrophils Absolute Auto 9.8 x10*3/uL (2.0-8.3); Platelet Count 215 X10*3/uL (160-400); Red Blood Count 4.73 X10*6/uL (4.60-5.80); Red Cell Distribution Width 16.7 % (11.0-16.0); White Blood Count 12.1 X10*3/uL (4.8-10.8)
[2023-09-18 03:09] LABS: Troponin-I High Sensitivity < 2.7 ng/L (<3.5-35.0)
--- NOTE | 2023-09-18 03:43 | ED.CHESTPAIN ---
HPI - Chest Pain General Chief Complaint: Chest Pain Stated Complaint: cp Time Seen by Provider: 09/18/23 03:43 History of Present Illness HPI narrative: Patient with history of hypertension , diabetes hyperlipidemia Patient had myocardial perfusion scan nuclear test in 01/26 and echocardiogram which were normal came here for midsternal , epigastric chest pain started just prior to arrival patient took aspirin and 2 doses of nitro blood pressure on arrival 165/83 EKG normal sinus rhythm no acute ischemic changes not radiation of the pain no shortness of breath patient did not find any relief after nitro patient does have history of gallbladder sludge with pain in the right side no vomiting this time plan to have MRI on 09/30 had ultrasound done on 09/01 which showed sludge in the neck of the gallbladder/gallstone Related Data Home Medications Medication Instructions Recorded Confirmed latanoprost 0.005 % eye drops 1 drp ophthalmic (eye) BEDTIME 11/07/20 08/11/23 Previous Rx's Medication Instructions Recorded walker #1 ea 01/12/21 blood pressure monitor #1 ea 05/08/22 chair lift #1 ea 09/11/22 walker (Ultra-Light Rollator misc) #1 ea 03/14/23 lorazepam 1 mg tablet 1 mg PO BID PRN Anxiety 30 days 04/21/23 #45 tabs bed rail #1 ea 04/22/23 leg rn clinical documentation specialist #1 ea 04/22/23 sock aid #1 ea 04/22/23 flash glucose scanning reader #1 ea 04/25/23 (FreeStyle Tirso 14 Day Murray) fenofibrate nanocrystallized 145 145 mg PO DAILY 90 days #90 tabs 04/29/23 mg tablet furosemide 20 mg tablet 20 mg PO DAILY 90 days #90 tabs 04/29/23 sitagliptin phosphate 25 mg tablet 25 mg PO DAILY 90 days #90 tabs 04/29/23 (Januvia) insulin degludec 200 unit/mL (3 55 unit (0.275 mL) subcut BEDTIME 05/07/23 mL) subcutaneous pen (Tresiba 90 days #24.75 mL FlexTouch U-200 insulin) metformin 500 mg tablet,extended 500 mg PO BID 90 days #180 tabs 05/07/23 release 24 hr pen needle, diabetic 31 gauge x #200 ea 05/07/2311/19 dulaglutide 1.5 mg/0.5 mL 1.5 mg (0.5 mL) subcut QWEEK 90 05/09/23 subcutaneous pen injector days #6.5 mL (Trulicity) enoxaparin 40 mg/0.4 mL 40 mg (0.4 mL) subcut Q24H 42 days 05/09/23 subcutaneous syringe #16.8 mL Shower Chair #1 ea 05/13/23 hydralazine 25 mg tablet 25 mg PO TID 90 days #270 tabs 05/14/23 acetaminophen 325 mg tablet 650 mg (2 x 325 mg) PO Q6H PRN 05/27/23 fever 30 days #180 tabs Brace,wrist #1 ea 06/02/23 lactulose 10 gram/15 mL oral 10 g (15 mL) PO BEDTIME PRN 08/11/23 solution constipation 30 days #237 mL benazepril 40 mg tablet 40 mg PO DAILY #30 tabs 08/16/23 celecoxib 200 mg capsule 200 mg PO BID 30 days #60 caps 08/16/23 cyclobenzaprine 10 mg tablet 10 mg PO BEDTIME PRN muscle spasm 08/16/23 90 days #90 tabs oxycodone 10 mg tablet 10 mg PO Q6H PRN Pain, 08/25/23 Moderate(Pain Scale 4-6) 30 days #120 tabs atorvastatin 20 mg tablet 20 mg PO DAILY 30 days #30 tabs 09/10/23 icosapent ethyl 1 gram capsule 2 g (2 x 1 gram) PO BID 30 days 09/10/23 (Vascepa) #120 caps flash glucose sensor (FreeStyle #2 ea 09/13/23 Tirso 2 Sensor kit) cholecalciferol (vitamin D3) 50 50 mcg PO DAILY #90 tabs 09/14/23 mcg (2,000 unit) tablet omeprazole 40 mg capsule,delayed 40 mg PO DAILY #30 caps 09/18/23 release sucralfate 1 gram tablet 1 g PO BID #60 tabs 09/18/23 Allergies Allergy/AdvReac Type Severity Reaction Status Date / Time Penicillins [PENICILLINS] Allergy Severe RASH Verified 08/11/23 10:22 jay pepper Allergy Intermediate Rash Verified 08/11/23 10:22 pepper (genus Capsicum) AdvReac Intermediate rashes Verified 08/11/23 10:22 Review of Systems Review of Systems: Yes all other systems are reviewed and are negative PMFSH Past Medical History Medical History Diabetes mellitus Essential hypertension Numbness and tingling in right hand Numbness and tingling in left hand Knee osteoarthritis Mild recurrent major depression Mixed hyperlipidemia Right shoulder pain Right knee pain Left knee pain CKD (chronic kidney disease), stage III Low back pain Multiple falls Syncope DAVINA (acute kidney injury) Obesity due to excess calories Lumbar spondylosis Proteinuria Arthritis Hypertriglyceridemia Hypertension Diabetic polyneuropathy associated with type 2 diabetes mellitus Type 2 diabetes mellitus with other diabetic kidney complication Lumbar stenosis Surgical History History of surgery on lower extremity History of total left knee replacement (TKR) S/P evacuation of hematoma Hx of cataract surgery History of lumbar surgery Hx of eye surgery History of back surgery Family History Family History Father Medical history unknown Mother No problems noted. Maternal Grandmother Medical history unknown Social History Social History Household Members: None Household Members Other:: self Housing: Apartment Are you a primary ocular care technician to a significant other at home: No Do you presently have visiting nurse or other home services: No Alcohol intake: never Comment: final count is correct Patient Tobacco Use Status: Former Tobacco user Quit Date: 2 yrs ago Tobacco use type: Cigarette Years Smoked: 25 Smoked in Last 30 Days: Yes e-Cigarette/Vaping Use: Never Used Second Hand Smoke Exposure: No Use of substances other than those prescribed or required for medical reasons: No Advance Directives: Yes Advance Directives on File: Yes Advance Directives Date on File: 05/12/23 service: Yes Current occupational status: disabled Cognitive needs: Yes (walker) Hearing needs: No Vision needs: Yes (reading glasses) Physical Exam Vital Signs: Vital Signs: Last Vital Signs Temp 98.8 F 09/18/23 07:07 Pulse 91 09/18/23 07:07 Resp 16 09/18/23 07:07 BP 191/84 H 09/18/23 07:07 Pulse Ox 95 09/18/23 07:07 O2 Del Method Room Air 09/18/23 07:07 BMI result Body Mass Index 33.5 Appearance: Alert. Oriented X3. No acute distress. Eyes: PERRLA, No Nystagmus ENT: Pharynx normal. Oral Mucosa moist Neck: Normal inspection. Neck supple. CVS: Normal heart rate and rhythm. Pulses normal. Respiratory: No respiratory distress. Equal air entry bilateral, no wheezing/rales/rhonchi Abdomen: Soft and epigastric tenderness and right upper quadrant tenderness no rebound tenderness or guarding Bowel sounds are present, no mass palpable, no CVA tenderness Skin: Skin warm and dry. Normal skin color. Normal skin turgor. Extremities: No lower extremity edema. No calf tenderness Neuro: Oriented X 3. No motor deficit. No sensory deficit.No cerebellar signs , cranial nerves II-XII intact Medications Administered Discontinued Medications Generic Name Dose Route Start Last Admin Trade Name Freq PRN Reason Stop Dose Admin Al Hydroxide/Mg Hydroxide 30 ml 09/18/23 04:20 09/18/23 04:50 Magnesium Hydrox/Alum Hydrox 30 Ml Oral.Susp PO 09/18/23 04:21 30 ml ONCE ONE Administration Famotidine 20 mg 09/18/23 04:21 09/18/23 04:50 Famotidine/Pf 20 Mg/2 Ml Vial IVPUSH 09/18/23 04:22 20 mg ONCE ONE Administration Lidocaine HCl 15 ml 09/18/23 04:20 09/18/23 04:51 Lidocaine Hcl Viscous 2 % 15 Ml Solution MUCOUS MEM 09/18/23 04:21 15 ml ONCE ONE Administration Morphine Sulfate 4 mg 09/18/23 05:35 09/18/23 06:02 Morphine Sulfate 4 Mg/Ml Cartridge IVPUSH 09/18/23 05:36 4 mg ONCE ONE Administration Protocol Ondansetron HCl 4 mg 09/18/23 05:35 09/18/23 06:02 Ondansetron Hcl 4 Mg/2 Ml Vial IVPUSH 09/18/23 05:36 4 mg ONCE ONE Administration Medical Decision Making Medical Decision Making [facility] Narrative: Patient atypical chest pain mostly localized in epigastric area 2 sets of troponin negative EKG with no ischemic changes final to lidocaine. Patient is still have tenderness in right upper quadrant will do ultrasound as previous ultrasound 2 weeks ago showed sludge in the gallbladder neck although LFTs are normal if ultrasound is negative for cholecystitis will will discharge him home on PPI and sucralfate advised to follow-up as outpatient Differential Diagnosis Differential Diagnoses: The differential diagnosis associated with the presentation includes Cholelithiasis/cholecystitis/gastritis/ACS Admission/Observation Consideration of admission/observation: Escalation of care including admission/observation considered Lab Data MDM Lab Attestation statement: I reviewed the patient's lab results. 09/18/23 02:42 09/18/23 02:42 Labs: Lab Results 09/18/23 09/18/23 Range/Units 02:42 04:59 WBC 12.1 H (4.8-10.8) X10*3/uL RBC 4.73 (4.60-5.80) X10*6/uL Hgb 12.9 L (14.0-18.0) g/dl Hct 38.7 L (42.0-52.0) % MCV 81.8 (80.0-98.0) fL MCH 27.3 (27.0-33.0) pg MCHC 33.3 (31.0-36.0) g/dl RDW 16.7 H (11.0-16.0) % Plt Count 215 (160-400) X10*3/uL MPV 12.0 (9.4-12.4) fL Immature Gran % (Auto) 0.3 (0.0-0.4) % Neut % (Auto) 81.0 H (45-73) % Lymph % (Auto) 10.2 L (20-40) % [place] % (Auto) 6.6 (2-11) % Eos % (Auto) 1.7 (0-4) % Baso % (Auto) 0.2 (0-2) % Lymph # (Auto) 1.2 (1.2-4.9) X10*3/uL [place] # (Auto) 0.8 (0.1-1.2) X10*3/uL Eos # (Auto) 0.2 (0.0-0.4) X10*3/uL Baso # (Auto) 0.0 (0.0-0.2) X10*3/uL Abs Immat Gran (auto) 0.04 H (0.00-0.03) X10*3/uL Absolute Neuts (auto) 9.8 H (2.0-8.3) x10*3/uL Absolute Nucleated RBC 0.000 (0.0-0.012) X10*3/uL Nucleated RBC % (auto) 0.0 (0.0-0.2) /100WBC Sodium 141 (135-145) mmol/L Potassium 4.3 (3.3-5.1) mmol/L Chloride 106 (96-108) mmol/L Carbon Dioxide 26 (22-29) mmol/L Anion Gap 13 (12-20) BUN 19 H (9-16) mg/dL Creatinine 1.00 (0.5-1.4) mg/dL Estim Creat Clear Calc 82.0 Estimated GFR > 60 Random Glucose 187 H (60-115) mg/dL Calcium 9.4 D (8.4-10.2) mg/dL Total Bilirubin 0.4 (0.0-1.0) mg/dL Direct Bilirubin 0.2 (0.0-0.5) mg/dL AST 29 (5-37) U/L ALT 34 (0-40) U/L Alkaline Phosphatase 162 H (39-117) U/L Troponin I High Sens < 2.7 < 2.7 (<3.5-35.0) ng/L Total Protein 6.8 (6.5-8.0) g/dL Albumin 3.7 (3.5-5.0) g/dL Lipase 29 (8-78) U/L Independent Interpretation I performed an independent interpretation of an: EKG Interpretation: Normal sinus rhythm heart rate 75 beats per minute normal interval normal axis no acute ST T wave changes no acute ischemia Discharge Plan Discharge Clinical Impression: Chest pain Patient Disposition: Home, Self-Care Instructions: Chest Pain (ED) Additional Instructions: tient Prescriptions: New omeprazole 40 mg capsule,delayed release(DR/EC) 40 mg PO DAILY Qty: 30 0RF sucralfate 1 gram tablet 1 g PO BID Qty: 60 0RF No Action (DME) walker Misc See Rx Instructions .ROUTE .MEDSUPPLY Qty: 1 0RF Rx Instructions: As directed (DME) Ultra-Light Rollator Misc See Rx Instructions .ROUTE .MEDSUPPLY Qty: 1 0RF Rx Instructions: with seat lorazepam 1 mg tablet 1 mg PO BID PRN (Reason: Anxiety) 30 Days Qty: 45 0RF Rx Instructions: PATIENT IS NON-ADHERENT. DOES NOT HAVE MONEY TO BUY SOME MEDICATION (DME) sock aid See Rx Instructions .Route .MEDSUPPLY Qty: 1 0RF Rx Instructions: As directed (DME) leg rn clinical documentation specialist See Rx Instructions .Route .MEDSUPPLY Qty: 1 0RF Rx Instructions: As directed (DME) bed rail See Rx Instructions .Route .MEDSUPPLY Qty: 1 0RF Rx Instructions: As directed (DME) FreeStyle Tirso 14 Day Murray Misc See Rx Instructions .ROUTE .MEDSUPPLY Qty: 1 0RF Rx Instructions: As directed fenofibrate nanocrystallized 145 mg tablet 145 mg PO DAILY 90 Days Qty: 90 1RF furosemide 20 mg tablet 20 mg PO DAILY 90 Days Qty: 90 1RF Januvia 25 mg tablet 25 mg PO DAILY 90 Days Qty: 90 1RF Tresiba FlexTouch U-200 200 unit/mL (3 mL) insulin pen 55 unit subcut BEDTIME 90 Days Qty: 24.75 4RF Rx Instructions: took 25 units sc 04/14/23 pm metformin 500 mg tablet extended release 24 hr 500 mg PO BID 90 Days Qty: 180 1RF (DME) pen needle, diabetic 31 gauge x 5/16 needle See Rx Instructions subcut .MEDSUPPLY Qty: 200 4RF Rx Instructions: five times a day Trulicity 1.5 mg/0.5 mL pen injector 1.5 mg subcut QWEEK 90 Days Qty: 6.5 1RF (DME) Shower Chair Misc See Rx Instructions .Route Qty: 1 0RF Rx Instructions: As directed hydralazine 25 mg tablet 25 mg PO TID 90 Days Qty: 270 1RF acetaminophen 325 mg tablet 650 mg PO Q6H PRN (Reason: fever) 30 Days Qty: 180 6RF (DME) Brace,wrist Misc See Rx Instructions .Route Qty: 1 0RF Rx Instructions: right hand wrist splint celecoxib 200 mg capsule 200 mg PO BID 30 Days Qty: 60 1RF benazepril 40 mg tablet 40 mg PO DAILY Qty: 30 1RF Hold Instructions: Resume on 11/16/20. Stop taking until repeat lab work is checked. cyclobenzaprine 10 mg tablet 10 mg PO BEDTIME PRN (Reason: muscle spasm) 90 Days Qty: 90 1RF oxycodone 10 mg tablet 10 mg PO Q6H PRN (Reason: Pain, Moderate(Pain Scale 4-6)) 30 Days Qty: 120 0RF Rx Instructions: Partial Fill upon patient request. atorvastatin 20 mg tablet 20 mg PO DAILY 30 Days Qty: 30 4RF icosapent ethyl [Vascepa] 1 gram capsule 2 g PO BID 30 Days Qty: 120 4RF (DME) FreeStyle Tirso 2 Sensor Kit See Rx Instructions .Route Qty: 2 11RF Rx Instructions: As directed cholecalciferol (vitamin D3) 50 mcg (2,000 unit) tablet 50 mcg PO DAILY Qty: 90 0RF latanoprost 0.005 % drops 1 drp ophthalmic (eye) BEDTIME Rx Instructions: 1 drop into both eyes enoxaparin 40 mg/0.4 mL Syringe 40 mg subcut Q24H 42 Days Qty: 16.8 0RF (DME) blood pressure monitor Kit See Rx Instructions .Route Qty: 1 0RF Rx Instructions: As directed (DME) chair lift See Rx Instructions .Route .MEDSUPPLY Qty: 1 0RF Rx Instructions: As directed lactulose 10 gram/15 mL solution 10 g PO BEDTIME PRN (Reason: constipation) 30 Days Qty: 237 1RF Referrals: Tana Cruz MD [Physician] -
[2023-09-18 04:18] LABS: Anion Gap 13 (12-20); Blood Urea Nitrogen 19 mg/dL (9-16); Calcium 9.4 mg/dL (8.4-10.2); Carbon Dioxide 26 mmol/L (22-29); Chloride 106 mmol/L (96-108); Estimated Glomerular Filt Rate > 60; Glucose Random 187 mg/dL (60-115); Potassium 4.3 mmol/L (3.3-5.1); Sodium 141 mmol/L (135-145)
[2023-09-18 04:35] LABS: Alanine Aminotransferase 34 U/L (0-40); Albumin Level 3.7 g/dL (3.5-5.0); Alkaline Phosphatase 162 U/L (39-117); Aspartate Amino Transferase 29 U/L (5-37); Bilirubin Direct 0.2 mg/dL (0.0-0.5); Bilirubin Total 0.4 mg/dL (0.0-1.0); Lipase 29 U/L (8-78); Total Protein 6.8 g/dL (6.5-8.0)
[2023-09-18] MEDS: Famotidine/PF 20 MG/2 ML VIAL IVPUSH (04:50)
[2023-09-18] MEDS: Magnesium Hydrox/Alum Hydrox 30 ML ORAL.SUSP PO (04:50)
[2023-09-18] MEDS: Lidocaine HCl Viscous 2 % 15 ML SOLUTION MUCOUS MEM (04:51)
[2023-09-18 05:24] LABS: Troponin-I High Sensitivity < 2.7 ng/L (<3.5-35.0)
[2023-09-18] MEDS: Morphine Sulfate 4 MG/ML CARTRIDGE IVPUSH (06:02)
[2023-09-18] MEDS: ondansetron HCL 4 MG/2 ML VIAL IVPUSH (06:02)
--- NOTE | 2023-09-18 08:33 | PC.NURSE ---
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
[2023-09-18] MEDS: Ketorolac Tromethamine 15 MG/ML VIAL 10 MG IVPUSH (09:03)
[2023-09-18] MEDS: 0.9 % Sodium Chloride 1,000 ML 999 ML IV (09:06)
--- NOTE | 2023-09-18 09:06 | PC.NURSE ---
pt medicated per order
[2023-09-18] MEDS: iohexoL 350 MG/ML 100 ML INFUS..BTL IV (10:17)
--- NOTE | 2023-09-18 12:04 | PM.HPGS ---
History of Present Illness History of Present Illness Date of Service: 09/22/23 Chief complaint: Acute cholecystitis Narrative: Carlos Cabrera is a 67 year old male who came to the ER this morning because of what was initially thought was lower sternal chest pain. Cardiac workup was unremarkable. He however continued to have pain which was described to be epigastric area so he was sent for an ultrasound and CT scan. I have reviewed this and this is consistent with gallstones with acute cholecystitis The patient does point to pain on the right upper quadrant and epigastric area. He denies any nausea or vomiting He says he may have had a similar episode many years ago He is multiple medical problems including diabetes with polyneuropathy, chronic kidney disease, and osteoarthritis. He is homebound and has a caregiver. He has limited mobility and uses a walker. He has limited use of both hands because of arthritis. Review of Systems Constitutional: Constitutional: Denies chills and Denies fever(s) Cardiovascular: Cardiovascular: Denies chest pain, Denies dyspnea and Denies dyspnea on exertion Respiratory: Respiratory: Denies cough, Denies dyspnea and Denies dyspnea on exertion Gastrointestinal: Gastrointestinal: Denies hematochezia and Denies change in bowel habits Genitourinary: Genitourinary: Denies hematuria and Denies difficulty urinating Musculoskeletal: Musculoskeletal: Reports back pain and Reports limited range of motion Neurologic: Denies focal weakness and Denies convulsions Psychiatric: Psychiatric: Denies depression and Denies mood swings PMFSH Past Medical History Medical History Acute cholecystitis due to biliary calculus Diabetes mellitus Essential hypertension Numbness and tingling in right hand Numbness and tingling in left hand Knee osteoarthritis Mild recurrent major depression Mixed hyperlipidemia Right shoulder pain Right knee pain Left knee pain CKD (chronic kidney disease), stage III Low back pain Multiple falls Syncope DAVINA (acute kidney injury) Obesity due to excess calories Lumbar spondylosis Proteinuria Arthritis Hypertriglyceridemia Hypertension Diabetic polyneuropathy associated with type 2 diabetes mellitus Type 2 diabetes mellitus with other diabetic kidney complication Lumbar stenosis Family History Family History Father Medical history unknown Mother No problems noted. Maternal Grandmother Medical history unknown Surgical History Surgical History History of surgery on lower extremity History of total left knee replacement (TKR) S/P evacuation of hematoma Hx of cataract surgery History of lumbar surgery Hx of eye surgery History of back surgery Social History Social History Household Members: None Household Members Other:: self Housing: Apartment Are you a primary caregivers non medical to a significant other at home: No Do you presently have visiting nurse or other home services: Yes Alcohol intake: never Comment: final count is correct Patient Tobacco Use Status: Former Tobacco user Quit Date: 2 yrs ago Tobacco use type: Cigarette Years Smoked: 25 Smoked in Last 30 Days: Yes e-Cigarette/Vaping Use: Never Used Second Hand Smoke Exposure: No Use of substances other than those prescribed or required for medical reasons: No Currently Displaying Signs/Symptoms of Drug Intoxication Withdrawal: No Have you been hit, kicked, punched, or otherwise hurt by someone within the past year? If so, by whom?: No Are you DNR?: No Advance Directives: Yes Advance Directives on File: Yes Advance Directives Date on File: 05/12/23 Do you have thoughts of harming others: None Do you have a plan to hurt others: No Plan Recently lost weight without trying: Unsure Nutrition Risks: No Nutritional Risk service: No Current occupational status: disabled Cognitive needs: Yes (walker) Hearing needs: No Vision needs: Yes (reading glasses) Meds Allergies Allergy/AdvReac Type Severity Reaction Status Date / Time Penicillins [PENICILLINS] Allergy Severe RASH Verified 08/11/23 10:22 jay pepper Allergy Intermediate Rash Verified 08/11/23 10:22 pepper (genus Capsicum) AdvReac Intermediate rashes Verified 08/11/23 10:22 Home Medications Medication Instructions Recorded Confirmed Last Taken Type latanoprost 0.005 % eye drops 1 drp ophthalmic (eye) BEDTIME 11/07/20 09/18/23 09/17/23 History aspirin 81 mg tablet,delayed 81 mg PO DAILY 09/18/23 09/18/23 09/17/23 History release cyclobenzaprine 10 mg tablet 10 mg PO BEDTIME muscle spasm 09/18/23 09/18/23 09/17/23 History dulaglutide 1.5 mg/0.5 mL 1.5 mg subcut MO 09/18/23 09/18/23 09/14/23 History subcutaneous pen injector (Trulicity) insulin aspart U-100 100 unit/mL 1 sliding scale dose subcut TIDAC 09/18/23 09/18/23 Unknown History (3 mL) subcutaneous pen Physical Exam Vital Signs: Vital Signs: Last Vital Signs Temp 98.1 F 09/18/23 10:15 Pulse 92 09/18/23 10:15 Resp 15 09/18/23 10:15 BP 159/82 H 09/18/23 10:15 Pulse Ox 94 09/18/23 10:15 O2 Del Method Room Air 09/18/23 10:15 BMI result Body Mass Index 33.5 Const: General: comfortable and no acute distress Orientation/consciousness: patient oriented x3 Eyes: Other: Anicteric Neck: Neck: Yes no lymphadenopathy Resp: Auscultation: clear to auscultation bilaterally Cardio: Rhythm: regular rhythm GI: Other: Tender in the epigastric area and right upper quadrant, with Christy's sign Palpation (GI): Soft to palpation and no guarding Neuro: General: patient oriented x3 Results Results Labs: Short CBC 09/18/23 Range/Units 02:42 WBC 12.1 H (4.8-10.8) X10*3/uL Hgb 12.9 L (14.0-18.0) g/dl Hct 38.7 L (42.0-52.0) % Plt Count 215 (160-400) X10*3/uL BMP 09/18/23 02:42 Sodium 141 Potassium 4.3 Chloride 106 Carbon Dioxide 26 BUN 19 H Creatinine 1.00 Calcium 9.4 D Liver Function 09/18/23 Range/Units 02:42 Total Bilirubin 0.4 (0.0-1.0) mg/dL Direct Bilirubin 0.2 (0.0-0.5) mg/dL AST 29 (5-37) U/L ALT 34 (0-40) U/L Alkaline Phosphatase 162 H (39-117) U/L Albumin 3.7 (3.5-5.0) g/dL Abdomen CT scan report/results: report reviewed and image reviewed CT scan - pelvis: report reviewed and image reviewed Additional studies: Laboratory Results WBC 12.1 X10*3/uL (4.8-10.8) H 09/18/23 02:42 RBC 4.73 X10*6/uL (4.60-5.80) 09/18/23 02:42 Hgb 12.9 g/dl (14.0-18.0) L 09/18/23 02:42 Hct 38.7 % (42.0-52.0) L 09/18/23 02:42 MCV 81.8 fL (80.0-98.0) 09/18/23 02:42 MCH 27.3 pg (27.0-33.0) 09/18/23 02:42 MCHC 33.3 g/dl (31.0-36.0) 09/18/23 02:42 RDW 16.7 % (11.0-16.0) H 09/18/23 02:42 Plt Count 215 X10*3/uL (160-400) 09/18/23 02:42 MPV 12.0 fL (9.4-12.4) 09/18/23 02:42 Immature Gran % (Auto) 0.3 % (0.0-0.4) 09/18/23 02:42 Neut % (Auto) 81.0 % (45-73) H 09/18/23 02:42 Lymph % (Auto) 10.2 % (20-40) L 09/18/23 02:42 [place] % (Auto) 6.6 % (2-11) 09/18/23 02:42 Eos % (Auto) 1.7 % (0-4) 09/18/23 02:42 Baso % (Auto) 0.2 % (0-2) 09/18/23 02:42 Lymph # (Auto) 1.2 X10*3/uL (1.2-4.9) 09/18/23 02:42 [place] # (Auto) 0.8 X10*3/uL (0.1-1.2) 09/18/23 02:42 Eos # (Auto) 0.2 X10*3/uL (0.0-0.4) 09/18/23 02:42 Baso # (Auto) 0.0 X10*3/uL (0.0-0.2) 09/18/23 02:42 Abs Immat Gran (auto) 0.04 X10*3/uL (0.00-0.03) H 09/18/23 02:42 Absolute Neuts (auto) 9.8 x10*3/uL (2.0-8.3) H 09/18/23 02:42 Absolute Nucleated RBC 0.000 X10*3/uL (0.0-0.012) 09/18/23 02:42 Nucleated RBC % (auto) 0.0 /100WBC (0.0-0.2) 09/18/23 02:42 Sodium 141 mmol/L (135-145) 09/18/23 02:42 Potassium 4.3 mmol/L (3.3-5.1) 09/18/23 02:42 Chloride 106 mmol/L (96-108) 09/18/23 02:42 Carbon Dioxide 26 mmol/L (22-29) 09/18/23 02:42 Anion Gap 13 (12-20) 09/18/23 02:42 BUN 19 mg/dL (9-16) H 09/18/23 02:42 Creatinine 1.00 mg/dL (0.5-1.4) 09/18/23 02:42 Estim Creat Clear Calc 82.0 09/18/23 02:42 Estimated GFR > 60 09/18/23 02:42 Random Glucose 187 mg/dL (60-115) H 09/18/23 02:42 Calcium 9.4 mg/dL (8.4-10.2) D 09/18/23 02:42 Total Bilirubin 0.4 mg/dL (0.0-1.0) 09/18/23 02:42 Direct Bilirubin 0.2 mg/dL (0.0-0.5) 09/18/23 02:42 AST 29 U/L (5-37) 09/18/23 02:42 ALT 34 U/L (0-40) 09/18/23 02:42 Alkaline Phosphatase 162 U/L (39-117) H 09/18/23 02:42 Troponin I High Sens < 2.7 ng/L (<3.5-35.0) 09/18/23 04:59 C-Reactive Protein 0.40 mg/dL (< or = 0.50) 09/18/23 04:59 Total Protein 6.8 g/dL (6.5-8.0) 09/18/23 02:42 Albumin 3.7 g/dL (3.5-5.0) 09/18/23 02:42 Lipase 29 U/L (8-78) 09/18/23 02:42 Impressions Abdomen Ultrasound 09/18/23 07:49 IMPRESSION: Cholelithiasis. Gallbladder wall thickening. Positive sonographic Christy's sign. Findings likely represent acute cholecystitis. Consider surgical consultation. Abdomen/Pelvis CT 09/18/23 10:33 IMPRESSION: Findings most likely representing acute cholecystitis. This correlates with right upper quadrant ultrasound. Assessment and Plan (1) Acute cholecystitis due to biliary calculus: Status: Acute He has epigastric tenderness and right upper quadrant tenderness. I have reviewed his imaging studies and this is consistent with acute cholecystitis secondary to gallstones. I explained to him the option of proceeding with laparoscopic cholecystectomy with possible conversion to open. I discussed the technique of this procedure. I reviewed the risks including but not limited to bleeding, infections, injury to bowel, liver all bowel ducts, bile leak, retained stones, as well as the benefits and alternatives We will put him on the schedule for tomorrow We will have him evaluated by the hospitalist service for now in view of his multiple medical problems. He will be admitted and will be on IV Zosyn. The patient says that he does not have any family member nor immediate next of kin. The patient is also homebound and has a caregiver who comes every day. He scores poorly on the frailty scale, and therefore has higher perioperative risks. Quality Stroke Does the patient have a stroke diagnosis?: No VTE Prior VTE?: No VTE Risk Level:: Medical - moderate - high VTE Device Contraindication: N/A - Device Ordered VTE Drug Contraindication: N/A - Med Ordered Procedures Date of Service Date of Service: 09/22/23
--- NOTE | 2023-09-18 12:50 | MHC.EDTECH ---
pt was assisted out of bed to standing position with walker and was able to ambulate on own with a steady gait to the bathroom
--- NOTE | 2023-09-18 14:49 | PHA.MEDREC ---
Pharmacy Consult ? Medication Reconciliation Pharmacy has completed the medication reconciliation. Patient confirmed medication based on claim history and previous medical records. Patient confirmed that he is only benazepril and not lisinopril. Patient reports an insulin at bedtime and a SSI prior to meals. Claim history only show Tresiba. Patient previously on Novolog in 2022, therefore I added to home list as patient still using at home. Martina Bolaños, JeffD
--- NOTE | 2023-09-18 15:08 | PC.NURSE ---
per tiger text with Dr. Perez (surgery) pt does not require blood cultures or lactic prior to the administration of this abx.
[2023-09-18] MEDS: 0.9 % Sodium Chloride 1,000 ML 80 ML IVCONT ×2 (15:13→19:54)
[2023-09-18] MEDS: metroNIDAZOLE/NS 500 MG/100 ML PIGGYBACK 100 MG IV (15:13)
--- NOTE | 2023-09-18 15:18 | PC.NURSE ---
patient a&ox3, vitals previously stable monitor technician nsr 80s, ivf started per order, iv abx running per order, call jay within reach, will continue to monitor
--- NOTE | 2023-09-18 16:20 | PM.IMHP ---
History of Present Illness Date of Service: 09/18/23 Attending physician on admission: Surendra Bush Chief Complaint: abdominal pain This is a 67-year-old male who presents to the emergency department with epigastric abdominal pain found to have acute cholecystitis. He was admitted to the surgical service with plans for cholecystectomy in the morning. The hospitalists were asked to see him in consultation for medical management due to history of multiple chronic comorbidities. Other than abdominal pain patient denies any chest pain, palpitations, shortness of breath, nausea, vomiting. He has had multiple previous surgical procedures with no issues related to general anesthesia. Currently reports ongoing epigastric and right upper quadrant abdominal pain which began around 1 am this morning. Review of Systems Review of Systems: Yes all other systems are reviewed and are negative Constitutional: Constitutional: Denies chills and Denies fever(s) Cardiovascular: Cardiovascular: Denies chest pain, Denies palpitations and Denies dyspnea Respiratory: Respiratory: Denies cough and Denies dyspnea Gastrointestinal: Gastrointestinal: Reports abdominal pain, Denies nausea and Denies vomiting Endocrine: Endocrine: Denies palpitations [facility] Medical History Acute cholecystitis due to biliary calculus Diabetes mellitus Essential hypertension Numbness and tingling in right hand Numbness and tingling in left hand Knee osteoarthritis Mild recurrent major depression Mixed hyperlipidemia Right shoulder pain Right knee pain Left knee pain CKD (chronic kidney disease), stage III Low back pain Multiple falls Syncope DAVINA (acute kidney injury) Obesity due to excess calories Lumbar spondylosis Proteinuria Arthritis Hypertriglyceridemia Hypertension Diabetic polyneuropathy associated with type 2 diabetes mellitus Type 2 diabetes mellitus with other diabetic kidney complication Lumbar stenosis Family History Father Medical history unknown Mother No problems noted. Maternal Grandmother Medical history unknown Surgical History History of surgery on lower extremity History of total left knee replacement (TKR) S/P evacuation of hematoma Hx of cataract surgery History of lumbar surgery Hx of eye surgery History of back surgery Social History Household Members: None Household Members Other:: self Housing: Apartment Are you a primary patient care nursing assistant to a significant other at home: No Do you presently have visiting nurse or other home services: No Alcohol intake: never Comment: final count is correct Patient Tobacco Use Status: Former Tobacco user Quit Date: 2 yrs ago Tobacco use type: Cigarette Years Smoked: 25 Smoked in Last 30 Days: Yes e-Cigarette/Vaping Use: Never Used Second Hand Smoke Exposure: No Use of substances other than those prescribed or required for medical reasons: No Advance Directives: Yes Advance Directives on File: Yes Advance Directives Date on File: 05/12/23 service: Yes Current occupational status: disabled Cognitive needs: Yes (walker) Hearing needs: No Vision needs: Yes (reading glasses) Meds Allergies Allergy/AdvReac Type Severity Reaction Status Date / Time Penicillins [PENICILLINS] Allergy Severe RASH Verified 08/11/23 10:22 jay pepper Allergy Intermediate Rash Verified 08/11/23 10:22 pepper (genus Capsicum) AdvReac Intermediate rashes Verified 08/11/23 10:22 Active Medications: Current Medications Heparin Sodium (Porcine) (Heparin Sodium,Porcine 5,000 Unit/Ml Vial) 5,000 unit SUBCUT Q8H [facility] Sodium Chloride (Ns) 1,000 mls @ 80 mls/hr IVCONT .[id number] [facility] Last Admin: 09/18/23 15:13 Dose: 80 mls/hr Metronidazole (Flagyl) 500 mg in 100 mls @ 100 mls/hr IV Q12H [facility] Last Infusion: 09/18/23 16:16 Dose: Infused Levofloxacin (Levaquin) 500 mg in 100 mls @ 100 mls/hr IV Q24H [facility] Morphine Sulfate (Morphine Sulfate 2 Mg/Ml Cartridge) 3 mg IVPUSH Q3H PRN; Protocol PRN Reason: pain, severe Sodium Chloride (0.9 % Sodium Chloride Flush 3 Ml Syringe) 3 ml IVFLUSH QSHIFT [facility] Last Admin: 09/18/23 16:16 Dose: Not Given Home Medications Medication Instructions Recorded Confirmed Last Taken Type latanoprost 0.005 % eye drops 1 drp ophthalmic (eye) BEDTIME 11/07/20 09/18/23 09/17/23 History aspirin 81 mg tablet,delayed 81 mg PO DAILY 09/18/23 09/18/23 09/17/23 History release cyclobenzaprine 10 mg tablet 10 mg PO BEDTIME muscle spasm 09/18/23 09/18/23 09/17/23 History dulaglutide 1.5 mg/0.5 mL 1.5 mg subcut MO 09/18/23 09/18/23 09/15/23 History subcutaneous pen injector (Trulicity) insulin aspart U-100 100 unit/mL 1 sliding scale dose subcut TIDAC 09/18/23 09/18/23 Unknown History (3 mL) subcutaneous pen Physical Exam Vital Signs and Narrative: Vital Signs: Last Vital Signs Temp 98.1 F 09/18/23 12:49 Pulse 85 09/18/23 12:49 Resp 16 09/18/23 12:49 BP 151/76 H 09/18/23 12:49 Pulse Ox 95 09/18/23 12:49 O2 Del Method Room Air 09/18/23 12:49 BMI result Body Mass Index 33.5 Const: General: cooperative, comfortable, no acute distress, alert and awake Nutritional Appearance: overweight Orientation/consciousness: patient oriented x3 Resp: Effort & Inspection: normal respiratory effort, able to speak in complete sentences, no respiratory distress and no use of accessory muscles Cardio: Rate: regular rate GI: Other: tender to palpation RUQ, epigastrum, no guarding +BS Neuro: General: patient oriented x3, moves all extremities and CN's II-XI intact bilaterally Extrem: General: Yes no pedal edema Results Labs 09/18/23 02:42 09/18/23 02:42 Labs: Laboratory Results - last 24 hr 09/18/23 09/18/23 02:42 04:59 MCV 81.8 MCH 27.3 MCHC 33.3 RDW 16.7 H Plt Count 215 MPV 12.0 Immature Gran % (Auto) 0.3 Neut % (Auto) 81.0 H Lymph % (Auto) 10.2 L [place] % (Auto) 6.6 Eos % (Auto) 1.7 Baso % (Auto) 0.2 Lymph # (Auto) 1.2 [place] # (Auto) 0.8 Eos # (Auto) 0.2 Baso # (Auto) 0.0 Abs Immat Gran (auto) 0.04 H Absolute Neuts (auto) 9.8 H Absolute Nucleated RBC 0.000 Nucleated RBC % (auto) 0.0 Anion Gap 13 Estim Creat Clear Calc 82.0 Estimated GFR > 60 Random Glucose 187 H Calcium 9.4 D Total Bilirubin 0.4 Direct Bilirubin 0.2 AST 29 ALT 34 Alkaline Phosphatase 162 H Troponin I High Sens < 2.7 < 2.7 C-Reactive Protein 0.40 Total Protein 6.8 Albumin 3.7 Lipase 29 Imaging Radiologist's Impressions: Impressions Abdomen Ultrasound 09/18/23 07:49 IMPRESSION: Cholelithiasis. Gallbladder wall thickening. Positive sonographic Christy's sign. Findings likely represent acute cholecystitis. Consider surgical consultation. Abdomen/Pelvis CT 09/18/23 10:33 IMPRESSION: Findings most likely representing acute cholecystitis. This correlates with right upper quadrant ultrasound. Assessment and Plan (1) Acute cholecystitis due to biliary calculus: Status: Acute Plan This is a 67-year-old male with history of hypertension, insulin-dependent type 2 diabetes, CKD stage 3, diabetic polyneuropathy, hyperlipidemia, mood disorder, and lumbar stenosis who presented to the ED with what was initially described as chest pain found to have acute cholecystitis. Acute cholecystitis management per general surgery plan for surgery in am, NPO at midnight on Levaquin, flagyl per surgery pain management per surgical team hold aspirin hypertension continue hydralazine benazepril NF, hold SHANNON for now, can resume after surgery if bp allows insulin-dependent type 2 diabetes while on clear liquids will cover with sliding scale. no POCs checked, will check now follow POCs, cover with SSI hold Trulicity, metformin, januvia on treseba u-200 55U at baseline. currently on clear liquids and NPO at midnight. will convert to lantus and resume starting tomorrow CKD stage 3 appears to be at baseline HLD will hold statin, fenofibrate for now, can resume upon discharge vascepa is NF and on hold HFpEF last echo from 07/2022 with preserved EF and grade I diastolic dysfunction no evidence of acute decompensation at this time monitor fluid status closely while receiving IVF hold lasix for now chronic pain continue oxycodone hold celecoxib Thank you for allowing us to participate in the care of this patient, we will follow along with you Quality Stroke Does the patient have a stroke diagnosis?: No VTE Prior VTE?: No VTE Risk Level:: Medical - moderate - high VTE Device Contraindication: N/A - Device Ordered VTE Drug Contraindication: N/A - Med Ordered
[2023-09-18] MEDS: Morphine Sulfate 2 MG/ML CARTRIDGE 3 MG IVPUSH (17:05)
[2023-09-18] MEDS: levoFLOXacin/D5W 500 MG/100 ML PIGGYBACK 100 MG IV (17:11)
--- NOTE | 2023-09-18 17:12 | PC.NURSE ---
pt c/o chest pain 7/10 pressure, same pain he has been having since admission. has prn morphine but stated is doesnt help that much, brings pain down to 5/10. informed MD and surgeon. afterwards stated he would take the morphine and MD would increase dose for next administration
[2023-09-18 17:16] LABS: Glucose, Whole Blood 120 mg/dL (60-115)
[2023-09-18] MEDS: hydrALAZINE HCl 25 MG TABLET PO ×2 (17:45→21:36)
[2023-09-18 20:15] LABS: Glucose, Whole Blood 182 mg/dL (60-115)
[2023-09-18] MEDS: Insulin Lispro 100 UNIT/ML 3 ML VIAL SUBCUT (21:35)
[2023-09-18] MEDS: 0.9 % Sodium Chloride Flush 3 ML SYRINGE IVFLUSH (21:36)
[2023-09-18] MEDS: Morphine Sulfate 2 MG/ML CARTRIDGE 4 MG IVPUSH (21:36)
[2023-09-18] MEDS: Latanoprost 0.005 % Ophth Sol 2.5 ML DROPS 1 DROP EYE-BOTH (21:36)
[2023-09-19] VITALS (20 sets, daily range): BP systolic 122–173; BP diastolic 57–92; PULSE 81–103; RESP 12–20; TEMP 36.1–37; O2SAT 92–98
[2023-09-19] MEDS: metroNIDAZOLE/NS 500 MG/100 ML PIGGYBACK 100 MG IV ×2 (00:33→09:04)
[2023-09-19 06:43] LABS: Hematocrit 37.1 % (42.0-52.0); Hemoglobin 12.3 g/dl (14.0-18.0); Mean Corpuscular HGB Conc 33.2 g/dl (31.0-36.0); Mean Corpuscular Hemoglobin 27.2 pg (27.0-33.0); Mean Corpuscular Volume 82.1 fL (80.0-98.0); Mean Platelet Volume 12.6 fL (9.4-12.4); Platelet Count 176 X10*3/uL (160-400); Red Blood Count 4.52 X10*6/uL (4.60-5.80); Red Cell Distribution Width 16.8 % (11.0-16.0); White Blood Count 9.4 X10*3/uL (4.8-10.8)
[2023-09-19 07:00] LABS: Alanine Aminotransferase 23 U/L (0-40); Albumin Level 3.3 g/dL (3.5-5.0); Alkaline Phosphatase 106 U/L (39-117); Anion Gap 10 (12-20); Aspartate Amino Transferase 19 U/L (5-37); Bilirubin Direct 0.3 mg/dL (0.0-0.5); Bilirubin Total 0.7 mg/dL (0.0-1.0); Blood Urea Nitrogen 15 mg/dL (9-16); Calcium 8.6 mg/dL (8.4-10.2); Carbon Dioxide 22 mmol/L (22-29); Chloride 111 mmol/L (96-108); Creatinine Clr Calc Pharmacy 83.7; Estimated Glomerular Filt Rate > 60; Glucose Random 118 mg/dL (60-115); Potassium 3.9 mmol/L (3.3-5.1); Sodium 139 mmol/L (135-145); Total Protein 6.1 g/dL (6.5-8.0)
[2023-09-19 07:17] LABS: Glucose, Whole Blood 128 mg/dL (60-115)
[2023-09-19] MEDS: lisinopriL 40 MG TABLET PO (07:38)
[2023-09-19] MEDS: hydrALAZINE HCl 25 MG TABLET PO ×3 (07:38→21:03)
[2023-09-19] MEDS: 0.9 % Sodium Chloride 1,000 ML 80 ML IVCONT (07:40)
[2023-09-19] MEDS: Morphine Sulfate 2 MG/ML CARTRIDGE 4 MG IVPUSH ×2 (07:41→11:11)
[2023-09-19] MEDS: oxyCODONE HCl Immed Release 5 MG TABLET 10 MG PO ×2 (09:04→18:45)
--- NOTE | 2023-09-19 09:35 | MHC.CM.PN ---
IMM DELIVERED. PATIENT LIVES IN AN APT ALONE. HAS DAILY [employer] MORNING AND AFTERNOON, IS UNSURE NUMBER OF HOURS. [employer] W/ ADLS. AMBULATES W/ A WHEELED WALKER. ALSO HAS A SHOWER CHAIR AND GRAB BARS. PCP LANG JUNG HCP ON FILE AND VERIFIED - AGENT IS [facility]: GOAL IS HOME, RESUME CURRENT SERVICES, [employer] TO TRANSPORT. CM WILL CONTINUE TO FOLLOW.
--- NOTE | 2023-09-19 09:42 | PM.EVENT ---
Event Note Date of Service: 09/22/23 Event Note: Patient still has pain and tenderness on the epigastric area and right upper quadrant Does state that this seems to be controlled with pain medication WBC normal LFTs normal However, were persistent pain and tenderness with findings consistent with acute calculous cholecystitis, we will proceed with laparoscopic cholecystectomy Patient has been on Januvia; at risk for delayed gastric emptying with subsequent aspiration during intubation However, patient very symptomatic with gallstones and it is best to proceed with cholecystectomy despite the above risks Reviewed procedure with the patient Understands risks, benefits, and alternatives Time Spent With Patient Time: Total time managing care of this patient today ____ minutes.
[2023-09-19 11:07] LABS: Glucose, Whole Blood 125 mg/dL (60-115)
--- NOTE | 2023-09-19 11:17 | PC.NURSE ---
Addendum entered by Mercy Lopez RN 09/19/23 12:03: and januvia dose Original Note: anesthesia and surgeon aware of last dose of Trulicity, but case will be completed due to it being emergent.
--- NOTE | 2023-09-19 12:00 | HO.PM.IMPN ---
Subjective Subjective Date of Service: 09/19/23 Interval History: seen and examined this morning follow up for medical consultation still with right side/epigastric abdominal pain, no other complaints Constitutional Constitutional: Denies chills and Denies fever(s) Cardiovascular Cardiovascular: Denies chest pain, Denies palpitations and Denies dyspnea Respiratory Respiratory: Denies cough and Denies dyspnea Gastrointestinal Gastrointestinal: Reports abdominal pain, Denies nausea and Denies vomiting Endocrine Endocrine: Denies palpitations Physical Exam Vital Signs: Vital Signs: Last Vital Signs Temp 98.4 F 09/19/23 11:35 Pulse 85 09/19/23 11:35 Resp 18 09/19/23 11:35 BP 153/89 H 09/19/23 11:35 Pulse Ox 95 09/19/23 11:35 O2 Del Method Room Air 09/19/23 11:35 BMI result Body Mass Index 33.5 Const: General: cooperative, comfortable, no acute distress, alert and awake Nutritional Appearance: overweight Orientation/consciousness: patient oriented x3 Resp: Effort & Inspection: normal respiratory effort, able to speak in complete sentences, no respiratory distress and no use of accessory muscles Cardio: Rate: regular rate GI: Other: tender to palpation RUQ, epigastrum, no guarding +BS Neuro: General: patient oriented x3, moves all extremities and CN's II-XI intact bilaterally Extrem: General: Yes no pedal edema Objective Data Active Medications Acetaminophen (Acetaminophen 325 Mg Tablet) 650 mg PO Q6H PRN PRN Reason: Pain, Mild (Pain Scale 1-3) Dextrose (Dextrose 50 % 25 Gm/50 Ml Syringe) 25 gm IVPUSH Q15M PRN; Protocol PRN Reason: per Hypoglycemia Standing Ord. Docusate Sodium (Docusate Sodium 100 Mg Capsule) 100 mg PO BEDTIME IMTIAZ Glucose (Glucose Gel 15 Gm Gel..Gram.) 15 gm PO Q15M PRN; Protocol PRN Reason: per Hypoglycemia Standing Ord. Heparin Sodium (Porcine) (Heparin Sodium,Porcine 5,000 Unit/Ml Vial) 5,000 unit SUBCUT Q8H [facility] Hydralazine HCl (Hydralazine Hcl 25 Mg Tablet) 25 mg PO TID IMTIAZ; Protocol Last Admin: 09/19/23 07:38 Dose: 25 mg Documented By: DAWOOD Sodium Chloride (Ns) 1,000 mls @ 80 mls/hr IVCONT .[id number] [facility] Last Infusion: 09/19/23 11:46 Dose: 0 mls/hr Documented By: DAWOOD Levofloxacin (Levaquin) 500 mg in 100 mls @ 100 mls/hr IV Q24H [facility] Last Infusion: 09/18/23 18:24 Dose: Infused Documented By: DARSHAN Metronidazole (Flagyl) 500 mg in 100 mls @ 100 mls/hr IV Q8H [facility] Last Infusion: 09/19/23 11:06 Dose: Infused Documented By: DAWOOD Insulin Human Lispro (Insulin Lispro 100 Unit/Ml 3 Ml Vial) 0 unit SUBCUT QIDACHS [facility]; Protocol Last Admin: 09/19/23 11:23 Dose: Not Given Documented By: DAWOOD Non-Admin Reason: No Insulin Coverage Latanoprost (Latanoprost 0.005 % Ophth Maria Eugenia 2.5 Ml Drops) 1 drop EYE-BOTH BEDTIME [facility] Last Admin: 09/18/23 21:36 Dose: 1 drop Documented By: SOCO Lisinopril (Lisinopril 40 Mg Tablet) 40 mg PO DAILY [facility] Last Admin: 09/19/23 07:38 Dose: 40 mg Documented By: DAWOOD Morphine Sulfate (Morphine Sulfate 2 Mg/Ml Cartridge) 4 mg IVPUSH Q3H PRN; Protocol PRN Reason: pain, severe Last Admin: 09/19/23 11:11 Dose: 4 mg Documented By: DAWOOD Ondansetron HCl (Ondansetron Hcl 4 Mg/2 Ml Vial) 4 mg IVPUSH Q6H PRN PRN Reason: Nausea and Vomiting Oxycodone HCl (Oxycodone Hcl Immed Release 5 Mg Tablet) 10 mg PO Q6H PRN PRN Reason: Pain, Moderate(Pain Scale 4-6) Last Admin: 09/19/23 09:04 Dose: 10 mg Documented By: NATHANAEL Polyethylene Glycol (Polyethylene Glycol 3350 17 Gm Powd.Pack) 17 gm PO DAILY PRN PRN Reason: Constipation Sodium Chloride (0.9 % Sodium Chloride Flush 3 Ml Syringe) 3 ml IVFLUSH QSHIFT [facility] Last Admin: 09/19/23 07:08 Dose: Not Given Documented By: HO.PARROWA Non-Admin Reason: IV Running Labs 09/19/23 05:58 09/19/23 05:58 Labs: Laboratory Results - last 24 hr 09/18/23 09/18/23 09/19/23 16:32 20:10 05:58 MCV 82.1 MCH 27.2 MCHC 33.2 RDW 16.8 H Plt Count 176 MPV 12.6 H Absolute Nucleated RBC 0.000 Nucleated RBC % (auto) 0.0 Anion Gap 10 L Estim Creat Clear Calc 83.7 Estimated GFR > 60 POC Glucose 120 H 182 H Random Glucose 118 H Calcium 8.6 D Total Bilirubin 0.7 Direct Bilirubin 0.3 AST 19 ALT 23 Alkaline Phosphatase 106 Total Protein 6.1 L Albumin 3.3 L Blood Type Antibody Screen 09/19/23 09/19/23 09/19/23 07:05 09:18 11:03 MCV MCH MCHC RDW Plt Count MPV Absolute Nucleated RBC Nucleated RBC % (auto) Anion Gap Estim Creat Clear Calc Estimated GFR POC Glucose 128 H 125 H Random Glucose Calcium Total Bilirubin Direct Bilirubin AST ALT Alkaline Phosphatase Total Protein Albumin Blood Type O Positive Antibody Screen NEGATIVE Assessment and Plan (1) Acute cholecystitis: Status: Acute (2) Essential hypertension: Status: Acute Plan This is a 67-year-old male with history of hypertension, insulin-dependent type 2 diabetes, CKD stage 3, diabetic polyneuropathy, hyperlipidemia, mood disorder, and lumbar stenosis who presented to the ED with what was initially described as chest pain found to have acute cholecystitis. Acute cholecystitis management per general surgery plan for surgery today on Levaquin, flagyl per surgery pain management per surgical team hold aspirin hypertension, bp uncontrolled continue hydralazine benazepril NF, continue formular equivalent insulin-dependent type 2 diabetes follow POCs, cover with SSI hold Trulicity, metformin, januvia on treseba u-200 55U at baseline. NPO currently and awaiting surgery, can start Lantus when tolerating diet CKD stage 3 at baseline HLD will hold statin, fenofibrate for now, can resume upon discharge vascepa is NF and on hold HFpEF last echo from 07/2022 with preserved EF and grade I diastolic dysfunction no evidence of acute decompensation at this time monitor fluid status closely while receiving IVF hold lasix for now chronic pain continue oxycodone hold celecoxib HCP - patient has two sons that live in [place], he elects his son Jose Luis to be his HCP - [phone] Thank you for allowing us to participate in the care of this patient, we will follow along with you Quality Stroke Does the patient have a stroke diagnosis?: No VTE Prior VTE?: No VTE Risk Level:: Medical - moderate - high VTE Device Contraindication: N/A - Device Ordered VTE Drug Contraindication: N/A - Med Ordered
--- NOTE | 2023-09-19 12:18 | HO.ANESPROP2 ---
HPI - Anesthesia Eval Consult details Narrative: 67 yo M presenting for lap dhiraj Anesthesia Pre-Procedure Meds Is the patient on any of the following meds?: Dulaglutide (Trulicity) If Yes to any meds - educate patient: Pt education - increased risk of aspiration PMFSH Active Problems Active Problems: All Active Problems (Updated 09/18/23 @ 13:07 by Humberto Chao MD) Acute cholecystitis (Acute) Acute cholecystitis due to biliary calculus (Acute) Abnormal gallbladder ultrasound (Acute) Hospital discharge follow-up (Acute) Right upper quadrant abdominal pain (Acute) Diabetes mellitus (Acute) Carpal tunnel syndrome of left wrist (Acute) Low vitamin D level (Acute) Paresthesia of upper extremity (Acute) Right carpal tunnel syndrome (Acute) Essential hypertension (Acute) CKD (chronic kidney disease) stage 2, GFR 60-89 ml/min (Acute) Rupture of left quadriceps tendon (Acute) Status post total knee replacement, left (Acute) Preoperative cardiovascular examination (Acute) Abnormal EKG (Acute) Osteoarthritis of left knee (Acute) Microalbuminuria (Acute) Diabetic neuropathy associated with type 2 diabetes mellitus (Acute) Arthritis of both knees (Acute) Pre-op evaluation (Acute) Orthostatic hypotension (Acute) Knee osteoarthritis (Acute) Mild recurrent major depression (Acute) Mixed hyperlipidemia (Acute) Right shoulder pain (Acute) Right knee pain (Acute) Left knee pain (Acute) CKD (chronic kidney disease), stage III (Acute) Proteinuria (Acute) Diabetic polyneuropathy associated with type 2 diabetes mellitus (Acute) Hypertriglyceridemia (Acute) Obesity due to excess calories (Acute) Lumbar stenosis (Acute) Past Medical History Medical History Acute cholecystitis due to biliary calculus Diabetes mellitus Essential hypertension Numbness and tingling in right hand Numbness and tingling in left hand Knee osteoarthritis Mild recurrent major depression Mixed hyperlipidemia Right shoulder pain Right knee pain Left knee pain CKD (chronic kidney disease), stage III Low back pain Multiple falls Syncope DAVINA (acute kidney injury) Obesity due to excess calories Lumbar spondylosis Proteinuria Arthritis Hypertriglyceridemia Hypertension Diabetic polyneuropathy associated with type 2 diabetes mellitus Type 2 diabetes mellitus with other diabetic kidney complication Lumbar stenosis Family History Family History Father Medical history unknown Mother No problems noted. Maternal Grandmother Medical history unknown Family history of problems with anesthesia: No Surgical History Surgical History History of surgery on lower extremity History of total left knee replacement (TKR) S/P evacuation of hematoma Hx of cataract surgery History of lumbar surgery Hx of eye surgery History of back surgery History of Problems with Anesthesia: No Social History Social History Household Members: None Household Members Other:: self Housing: Apartment Are you a primary family day care worker to a significant other at home: No Do you presently have visiting nurse or other home services: No Alcohol intake: never Comment: final count is correct Patient Tobacco Use Status: Former Tobacco user Quit Date: 2 yrs ago Tobacco use type: Cigarette Years Smoked: 25 Smoked in Last 30 Days: Yes e-Cigarette/Vaping Use: Never Used Second Hand Smoke Exposure: No Use of substances other than those prescribed or required for medical reasons: No Currently Displaying Signs/Symptoms of Drug Intoxication Withdrawal: No Are you DNR?: No Advance Directives: Yes Advance Directives on File: Yes Advance Directives Date on File: 05/12/23 Nutrition Risks: No Nutritional Risk service: No Current occupational status: disabled Cognitive needs: Yes (walker) Hearing needs: No Vision needs: Yes (reading glasses) Meds Allergies Allergy/AdvReac Type Severity Reaction Status Date / Time Penicillins [PENICILLINS] Allergy Severe RASH Verified 08/11/23 10:22 jay pepper Allergy Intermediate Rash Verified 08/11/23 10:22 pepper (genus Capsicum) AdvReac Intermediate rashes Verified 08/11/23 10:22 Active Medications: Current Medications Acetaminophen (Acetaminophen 325 Mg Tablet) 650 mg PO Q6H PRN PRN Reason: Pain, Mild (Pain Scale 1-3) Dextrose (Dextrose 50 % 25 Gm/50 Ml Syringe) 25 gm IVPUSH Q15M PRN; Protocol PRN Reason: per Hypoglycemia Standing Ord. Docusate Sodium (Docusate Sodium 100 Mg Capsule) 100 mg PO BEDTIME IMTIAZ Glucose (Glucose Gel 15 Gm Gel..Gram.) 15 gm PO Q15M PRN; Protocol PRN Reason: per Hypoglycemia Standing Ord. Heparin Sodium (Porcine) (Heparin Sodium,Porcine 5,000 Unit/Ml Vial) 5,000 unit SUBCUT Q8H [facility] Hydralazine HCl (Hydralazine Hcl 25 Mg Tablet) 25 mg PO TID [facility]; Protocol Last Admin: 09/19/23 07:38 Dose: 25 mg Sodium Chloride (Ns) 1,000 mls @ 80 mls/hr IVCONT .[id number] [facility] Last Infusion: 09/19/23 11:46 Dose: 0 mls/hr Levofloxacin (Levaquin) 500 mg in 100 mls @ 100 mls/hr IV Q24H [facility] Last Infusion: 09/18/23 18:24 Dose: Infused Metronidazole (Flagyl) 500 mg in 100 mls @ 100 mls/hr IV Q8H [facility] Last Infusion: 09/19/23 11:06 Dose: Infused Insulin Human Lispro (Insulin Lispro 100 Unit/Ml 3 Ml Vial) 0 unit SUBCUT QIDACHS [facility]; Protocol Last Admin: 09/19/23 11:23 Dose: Not Given Latanoprost (Latanoprost 0.005 % Ophth Maria Eugenia 2.5 Ml Drops) 1 drop EYE-BOTH BEDTIME [facility] Last Admin: 09/18/23 21:36 Dose: 1 drop Lisinopril (Lisinopril 40 Mg Tablet) 40 mg PO DAILY [facility] Last Admin: 09/19/23 07:38 Dose: 40 mg Morphine Sulfate (Morphine Sulfate 2 Mg/Ml Cartridge) 4 mg IVPUSH Q3H PRN; Protocol PRN Reason: pain, severe Last Admin: 09/19/23 11:11 Dose: 4 mg Ondansetron HCl (Ondansetron Hcl 4 Mg/2 Ml Vial) 4 mg IVPUSH Q6H PRN PRN Reason: Nausea and Vomiting Oxycodone HCl (Oxycodone Hcl Immed Release 5 Mg Tablet) 10 mg PO Q6H PRN PRN Reason: Pain, Moderate(Pain Scale 4-6) Last Admin: 09/19/23 09:04 Dose: 10 mg Polyethylene Glycol (Polyethylene Glycol 3350 17 Gm Powd.Pack) 17 gm PO DAILY PRN PRN Reason: Constipation Sodium Chloride (0.9 % Sodium Chloride Flush 3 Ml Syringe) 3 ml IVFLUSH QSHIFT [facility] Last Admin: 09/19/23 07:08 Dose: Not Given Home Medications Medication Instructions Recorded Confirmed Last Taken Type latanoprost 0.005 % eye drops 1 drp ophthalmic (eye) BEDTIME 11/07/20 09/18/23 09/17/23 History aspirin 81 mg tablet,delayed 81 mg PO DAILY 09/18/23 09/18/23 09/17/23 History release cyclobenzaprine 10 mg tablet 10 mg PO BEDTIME muscle spasm 09/18/23 09/18/23 09/17/23 History dulaglutide 1.5 mg/0.5 mL 1.5 mg subcut MO 09/18/23 09/18/23 09/14/23 History subcutaneous pen injector (Trulicity) insulin aspart U-100 100 unit/mL 1 sliding scale dose subcut TIDAC 09/18/23 09/18/23 Unknown History (3 mL) subcutaneous pen Exam Exam Date and Time: September 19, 2023 1220 Height,Weight and Vital Signs: Height 5 ft 8 in Weight 99.8 kg Last Vital Signs Temp 98.4 F 09/19/23 11:35 Pulse 85 09/19/23 11:35 Resp 18 09/19/23 11:35 BP 153/89 H 09/19/23 11:35 Pulse Ox 95 09/19/23 11:35 O2 Del Method Room Air 09/19/23 11:35 Pertinent Lab Results Pertinent Lab Results: Laboratory Tests 09/18/23 09/18/23 09/18/23 02:42 04:59 16:32 WBC 12.1 H RBC 4.73 Hgb 12.9 L Hct 38.7 L MCV 81.8 MCH 27.3 MCHC 33.3 RDW 16.7 H Plt Count 215 MPV 12.0 Immature Gran % (Auto) 0.3 Neut % (Auto) 81.0 H Lymph % (Auto) 10.2 L [place] % (Auto) 6.6 Eos % (Auto) 1.7 Baso % (Auto) 0.2 Lymph # (Auto) 1.2 [place] # (Auto) 0.8 Eos # (Auto) 0.2 Baso # (Auto) 0.0 Abs Immat Gran (auto) 0.04 H Absolute Neuts (auto) 9.8 H Absolute Nucleated RBC 0.000 Nucleated RBC % (auto) 0.0 Sodium 141 Potassium 4.3 Chloride 106 Carbon Dioxide 26 Anion Gap 13 BUN 19 H Creatinine 1.00 Estim Creat Clear Calc 82.0 Estimated GFR > 60 POC Glucose 120 H Random Glucose 187 H Calcium 9.4 D Total Bilirubin 0.4 Direct Bilirubin 0.2 AST 29 ALT 34 Alkaline Phosphatase 162 H Troponin I High Sens < 2.7 < 2.7 C-Reactive Protein 0.40 Total Protein 6.8 Albumin 3.7 Lipase 29 Blood Type Antibody Screen 09/18/23 09/19/23 09/19/23 20:10 05:58 07:05 WBC 9.4 RBC 4.52 L Hgb 12.3 L Hct 37.1 L MCV 82.1 MCH 27.2 MCHC 33.2 RDW 16.8 H Plt Count 176 MPV 12.6 H Immature Gran % (Auto) Neut % (Auto) Lymph % (Auto) [place] % (Auto) Eos % (Auto) Baso % (Auto) Lymph # (Auto) [place] # (Auto) Eos # (Auto) Baso # (Auto) Abs Immat Gran (auto) Absolute Neuts (auto) Absolute Nucleated RBC 0.000 Nucleated RBC % (auto) 0.0 Sodium 139 Potassium 3.9 Chloride 111 H Carbon Dioxide 22 Anion Gap 10 L BUN 15 Creatinine 0.98 Estim Creat Clear Calc 83.7 Estimated GFR > 60 POC Glucose 182 H 128 H Random Glucose 118 H Calcium 8.6 D Total Bilirubin 0.7 Direct Bilirubin 0.3 AST 19 ALT 23 Alkaline Phosphatase 106 Troponin I High Sens C-Reactive Protein Total Protein 6.1 L Albumin 3.3 L Lipase Blood Type Antibody Screen 09/19/23 09/19/23 09:18 11:03 WBC RBC Hgb Hct MCV MCH MCHC RDW Plt Count MPV Immature Gran % (Auto) Neut % (Auto) Lymph % (Auto) [place] % (Auto) Eos % (Auto) Baso % (Auto) Lymph # (Auto) [place] # (Auto) Eos # (Auto) Baso # (Auto) Abs Immat Gran (auto) Absolute Neuts (auto) Absolute Nucleated RBC Nucleated RBC % (auto) Sodium Potassium Chloride Carbon Dioxide Anion Gap BUN Creatinine Estim Creat Clear Calc Estimated GFR POC Glucose 125 H Random Glucose Calcium Total Bilirubin Direct Bilirubin AST ALT Alkaline Phosphatase Troponin I High Sens C-Reactive Protein Total Protein Albumin Lipase Blood Type O Positive Antibody Screen NEGATIVE Airway Mallampati Class: II TM Dist: >3cm Neck ROM: Full Partial: Upper (left at home) and Lower (left at home) Heart: S1S2 Lungs: CTAB Assessment and Plan Assessment Anesthesia Assessment: Anesthesia Plan Discussed and Chart Reviewed Final Anesthetic Review Family History of Problems with Anesthesia: No History of Problems with Anesthesia: No NPO: Yes ASA Class: III Final Preanesthetic Review: No Changes in Pt Med Stat, Meds/Allgs Chart Reviewed, Consent Obtained/Reviewed and Anes Risks/Benef Reviewed Patient Risk: Intermediate Procedure Risk: Low Anesthetic Plan Anesthetic Plan: GA and Agree w/ Assess. and Plan Disposition: Standard PACU
--- NOTE | 2023-09-19 14:37 | W.PM.OPN ---
Operative Note Operative Note Date of Service: 09/19/23 Narrative: Preop diagnosis: Acute calculous cholecystitis Postop diagnosis: Acute calculous cholecystitis, with very thick rind, severe inflammatory changes, transverse colon adherent to the gallbladder Procedure: Attempted laparoscopic cholecystectomy, converted to open cholecystectomy Surgeon: Krishna Perez MD assistant fitness manager: JIM Estevez The patient is a 67-year-old male admitted for acute cholecystitis with significant inflammatory changes on CT scan. He is here in the OR for cholecystectomy. He understood the planned technique of the procedure as well as the risks, benefits, and alternatives. He continues to have significant pain and tenderness. He was brought to the operating room. He was placed supine under general anesthesia via endotracheal tube. The abdomen was prepped and draped in the usual sterile fashion. A surgical time-out was done. The patient receiving scheduled IV antibiotics . I proceeded to make a short supraumbilical umbilical incision using blade 15. This was carried down through the full-thickness of the skin and subcutaneous fat until the fascia was visualized. It was noted that the patient has large amount of subcutaneous fat. The fascia was incised. The peritoneum was entered. Through this incision a Cruz port was introduced. Pneumoperitoneum was induced to a pressure of 15 mm Hg. A 5/10 mm port introduced through a small incision in the epigastric area below the subcostal margin. Two 5 mm ports introduced small incisions below the the subcostal margin along the anterior axillary line the midclavicular line. Graspers were placed through the working ports. The patient was placed in head up and [id number] position. There was note of a lot of omentum and bowel loops covering the right upper quadrant so we had to carefully retract this with the graspers. I was able to eventually see what appeared to be the gallbladder but this was markedly thickened with inflammatory rind. The transverse colon was markedly adherent to this as well. We initially attempted to separate the transverse colon but this appeared to be fairly adherent. Furthermore, the rind was very thick could not expose much of the fundus of the gallbladder. At this point I decided that it would be best to convert to an open procedure. I desufflated. I removed all ports. I made a subcostal incision using blade 15. This was carried down through the full-thickness of the skin and thick subcutaneous fat. The anterior sheath was divided with electrocautery. We divided the rectus and the rest of the muscles laterally to expose the posterior sheath. We opened the posterior sheath with electrocautery to enter the peritoneal cavity. We applied the Bookwalter retractors We had to pull down the omentum away from the right upper quadrant. This allowed us visualize the fundus of the gallbladder. Again this was markedly thickened, very erythematous and indurated. With careful blunt dissection I retracted the transverse colon off of the gallbladder. I carefully the colon off the gallbladder wall mm by mm using the right-angle clamp and gentle dissection as well as electrocautery. Eventually we were able to completely break down the transverse colon off of the upper quadrant. We reposition moist laps to retract the rest of the bowel loops away from the subhepatic space. I applied Briana clamps on the fundus of the gallbladder. I proceeded to then try incise the thickened rind the gallbladder at the fundus. I proceeded to try to identify a plane of dissection under the thick rind to separate the gallbladder off of the liver bed. We had difficulty with the planes because of the severely inflamed gallbladder. This part of the procedure took a long period of time, and we were able to eventually achieve some separation of the gallbladder off of the liver and the rind. We had to proceed mm by mm to separate the gallbladder posteriorly. We were able to eventually circumferentially separate the body of the gallbladder but we had to continue to do a lot of dissection posteriorly because of the very poor planes. By working slowly and deliberately, I was able to eventually separate the posterior wall of the gallbladder despite poorly defined planes. We also had created multiple tears of the gallbladder wall because of this. I was able to feel the tunneling of the gallbladder at the neck. There was note of a lot of indurated tissue past the neck of the gallbladder. I thinned out the neck of the gallbladder. I decided not to continue to dissect passed this in view of the risk of injury on the rest of the structures distally. I therefore applied a right angle clamp across the neck of the gallbladder. I transected this and this was sent as specimen along with multiple stones. I doubly ligated the neck of the gallbladder with the Polysorb 2-0 tie. We observed for hemostasis. We copiously irrigated. It appeared that we had adequate hemostasis. There was no evidence of any bowel injury I therefore proceeded to position a 10 BLOSSOM drain in the subhepatic space. This was brought out through the lateral most port site This BLOSSOM drain was secured to the skin with nylon 3-0 stitches. I observed the subhepatic space and there was no evidence of any bleeding nor any bile leak or bowel injury I therefore copiously irrigated and suctioned until irrigant fluid. I reapposed the year she through running Polysorb 2-0 stitch. The anterior sheath was closed with a running Maxon 1 stitch. The subcutaneous layer was reapposed with Polysorb 3-0 interrupted sutures. I then closed the fascia of the umbilical incision with a [id number] Polysorb 2-0 stitch All skin incisions were closed with skin bruce. All incisions were also c infiltrated with Marcaine 0.5% for postop FILI. The procedure was then completed The patient tolerated procedure well. There were no immediate complications. Initial and final counts of sponges and instruments were correct. Estimated blood loss was about 100 cc . The patient was extubated without difficulty transferred to the recovery room with stable vital signs.
[2023-09-19] MEDS: HYDROmorphone HCl 0.5 MG/0.5 ML SYRINGE IVPUSH ×5 (15:36→21:02)
--- NOTE | 2023-09-19 15:49 | PM.EVENT ---
Event Note Date of Service: 09/19/23 Event Note: seen postop - open cholecystectomy c/o incisional pain stable VS BLOSSOM drain - serosanguinous explained to pt procedure done pain mgt on clear liquids Hospitalist following - had DM, CKD, chronic back pain Time Spent With Patient Time: Total time managing care of this patient today ____ minutes.
[2023-09-19 17:09] LABS: Glucose, Whole Blood 184 mg/dL (60-115)
[2023-09-19] MEDS: Acetaminophen 1,000 MG/100 ML PIGGYBACK 400 MG IV ×2 (17:17→23:58)
[2023-09-19] MEDS: Heparin Sodium,Porcine 5,000 UNIT/ML VIAL 5000 UNIT SUBCUT ×2 (17:21→23:58)
[2023-09-19 20:07] LABS: Glucose, Whole Blood 209 mg/dL (60-115)
[2023-09-19] MEDS: Insulin Lispro 100 UNIT/ML 3 ML VIAL SUBCUT (21:02)
[2023-09-19] MEDS: 0.9 % Sodium Chloride Flush 3 ML SYRINGE IVFLUSH (21:02)
[2023-09-19] MEDS: Docusate Sodium 100 MG CAPSULE PO (21:02)
[2023-09-19] MEDS: Latanoprost 0.005 % Ophth Sol 2.5 ML DROPS 1 DROP EYE-BOTH (21:06)
[2023-09-20] MEDS: oxyCODONE HCl Immed Release 5 MG TABLET 10 MG PO ×2 (00:46→21:04)
[2023-09-20] MEDS: 0.9 % Sodium Chloride 1,000 ML 80 ML IVCONT (02:07)
[2023-09-20] MEDS: HYDROmorphone HCl 0.5 MG/0.5 ML SYRINGE IVPUSH ×7 (02:07→23:11)
[2023-09-20 03:47] VITALS: BP 168/75; PULSE 93; RESP 18; TEMP 36.2; O2SAT 92
[2023-09-20 06:05] LABS: MANUAL DIFF FLAG NO
[2023-09-20] MEDS: Acetaminophen 1,000 MG/100 ML PIGGYBACK 400 MG IV ×4 (06:07→23:28)
[2023-09-20 06:26] LABS: Anion Gap 11 (12-20); Blood Urea Nitrogen 17 mg/dL (9-16); Carbon Dioxide 24 mmol/L (22-29); Chloride 108 mmol/L (96-108); Estimated Glomerular Filt Rate > 60; Glucose Fasting 178 mg/dL (60-99); Potassium 4.2 mmol/L (3.3-5.1); Sodium 139 mmol/L (135-145)
[2023-09-20 06:57] LABS: Basophils Percent Auto 0.1 % (0-2); Hematocrit 40.3 % (42.0-52.0); Hemoglobin 12.9 g/dl (14.0-18.0); Imm Gran Abs Auto 0.09 X10*3/uL (0.00-0.03); Imm Gran Pct Auto 0.5 % (0.0-0.4); Lymphocytes Absolute Auto 0.9 X10*3/uL (1.2-4.9); Lymphocytes Percent Auto 5.2 % (20-40); Mean Corpuscular Hemoglobin 26.8 pg (27.0-33.0); Mean Corpuscular Volume 83.6 fL (80.0-98.0); Mean Platelet Volume 12.7 fL (9.4-12.4); Monocytes Absolute Auto 1.2 X10*3/uL (0.1-1.2); Monocytes Percent Auto 7.3 % (2-11); Neutrophils Absolute Auto 14.5 x10*3/uL (2.0-8.3); Neutrophils Percent Auto 86.9 % (45-73); Platelet Count 229 X10*3/uL (160-400); Red Blood Count 4.82 X10*6/uL (4.60-5.80); Red Cell Distribution Width 17.2 % (11.0-16.0); White Blood Count 16.7 X10*3/uL (4.8-10.8)
[2023-09-20 07:45] LABS: Glucose, Whole Blood 175 mg/dL (60-115)
[2023-09-20 07:47] VITALS: BP 139/79; PULSE 84; RESP 18; TEMP 36.2; O2SAT 93
[2023-09-20] MEDS: Heparin Sodium,Porcine 5,000 UNIT/ML VIAL 5000 UNIT SUBCUT ×3 (08:27→23:29)
[2023-09-20] MEDS: hydrALAZINE HCl 50 MG TABLET PO ×3 (08:28→21:03)
[2023-09-20] MEDS: lisinopriL 40 MG TABLET PO (08:28)
[2023-09-20] MEDS: Insulin Lispro 100 UNIT/ML 3 ML VIAL SUBCUT ×4 (08:30→21:04)
[2023-09-20 11:34] LABS: Glucose, Whole Blood 194 mg/dL (60-115)
[2023-09-20 11:44] VITALS: BP 138/68; PULSE 86; RESP 18; TEMP 36.6; O2SAT 94
--- NOTE | 2023-09-20 15:16 | HO.POSTANES ---
Post Anesthesia Evaluation Post Anesthesia Evaluation Date of Service: 09/20/23 Vital Signs: Vital Signs Temp Pulse Resp BP Pulse Ox O2 Del Method 09/20/23 11:44 97.8 F 86 18 138/68 94 Room Air 09/20/23 07:47 97.2 F 84 18 139/79 93 Room Air 09/20/23 03:47 97.1 F 93 18 168/75 H 92 Room Air Anesthesia: General Endotracheal-GETA Mental Status: Awake Pain Control: Satisfactory Nausea/Vomiting: None Hydration: Adequate Anesthesia-Related Issues: No Anes. Related Issues
--- NOTE | 2023-09-20 15:21 | PM.PNGS ---
Subjective Subjective Date of Service: 09/20/23 Interval history: Patient complaining of incisional discomfort but otherwise no other acute issues. BLOSSOM drain serous output. White blood cell count 16.7, H&H stable Physical Exam Vital Signs: Vital Signs: Last Vital Signs Temp 97.8 F 09/20/23 11:44 Pulse 86 09/20/23 11:44 Resp 18 09/20/23 11:44 BP 138/68 09/20/23 11:44 Pulse Ox 94 09/20/23 11:44 O2 Del Method Room Air 09/20/23 11:44 O2 Flow Rate 3.0 09/19/23 16:49 BMI result Body Mass Index 33.5 Cardio: Other: Abdomen is soft. Dressing clean dry and intact. Objective Data Active Medications Dextrose (Dextrose 50 % 25 Gm/50 Ml Syringe) 25 gm IVPUSH Q15M PRN; Protocol PRN Reason: per Hypoglycemia Standing Ord. Docusate Sodium (Docusate Sodium 100 Mg Capsule) 100 mg PO BEDTIME [facility] Last Admin: 09/19/23 21:02 Dose: 100 mg Documented By: SOCO Glucose (Glucose Gel 15 Gm Gel..Gram.) 15 gm PO Q15M PRN; Protocol PRN Reason: per Hypoglycemia Standing Ord. Heparin Sodium (Porcine) (Heparin Sodium,Porcine 5,000 Unit/Ml Vial) 5,000 unit SUBCUT Q8H [facility] Last Admin: 09/20/23 08:27 Dose: 5,000 unit Documented By: ANNABELLE Hydralazine HCl (Hydralazine Hcl 50 Mg Tablet) 50 mg PO TID [facility]; Protocol Last Admin: 09/20/23 15:10 Dose: 50 mg Documented By: ANNABELLE Hydromorphone HCl (Hydromorphone Hcl 0.5 Mg/0.5 Ml Syringe) 0.5 mg IVPUSH Q3H PRN; Protocol PRN Reason: Pain, Severe (Pain Scale 7-10) Last Admin: 09/20/23 15:09 Dose: 0.5 mg Documented By: ANNABELLE Acetaminophen (Ofirmev) 1,000 mg in 100 mls @ 400 mls/hr IV Q6H [facility] Last Infusion: 09/20/23 12:08 Dose: Infused Documented By: ANNABELLE Insulin Human Lispro (Insulin Lispro 100 Unit/Ml 3 Ml Vial) 0 unit SUBCUT QIDACHS [facility]; Protocol Last Admin: 09/20/23 11:49 Dose: 2 unit Documented By: ANNABELLE Latanoprost (Latanoprost 0.005 % Ophth Maria Eugenia 2.5 Ml Drops) 1 drop EYE-BOTH BEDTIME [facility] Last Admin: 09/19/23 21:06 Dose: 1 drop Documented By: SOCO Lisinopril (Lisinopril 40 Mg Tablet) 40 mg PO DAILY [facility] Last Admin: 09/20/23 08:28 Dose: 40 mg Documented By: ANNABELLE Ondansetron HCl (Ondansetron Hcl 4 Mg/2 Ml Vial) 4 mg IVPUSH Q6H PRN PRN Reason: Nausea and Vomiting Oxycodone HCl (Oxycodone Hcl Immed Release 5 Mg Tablet) 10 mg PO Q6H PRN PRN Reason: Pain, Moderate(Pain Scale 4-6) Last Admin: 09/20/23 00:46 Dose: 10 mg Documented By: SOCO Polyethylene Glycol (Polyethylene Glycol 3350 17 Gm Powd.Pack) 17 gm PO DAILY PRN PRN Reason: Constipation Sodium Chloride (0.9 % Sodium Chloride Flush 3 Ml Syringe) 3 ml IVFLUSH QSHIFT [facility] Last Admin: 09/20/23 08:29 Dose: Not Given Documented By: ANNABELLE Non-Admin Reason: IV Running Labs 09/20/23 05:41 09/20/23 05:40 Labs: Laboratory Results - last 24 hr 09/19/23 09/19/23 09/20/23 17:05 19:56 05:40 MCV MCH MCHC RDW Plt Count MPV Immature Gran % (Auto) Neut % (Auto) Lymph % (Auto) [place] % (Auto) Eos % (Auto) Baso % (Auto) Lymph # (Auto) [place] # (Auto) Eos # (Auto) Baso # (Auto) Abs Immat Gran (auto) Absolute Neuts (auto) Absolute Nucleated RBC Nucleated RBC % (auto) Anion Gap 11 L Estim Creat Clear Calc 72.0 Estimated GFR > 60 POC Glucose 184 H 209 H Fasting Glucose 178 H Calcium 9.0 09/20/23 09/20/23 09/20/23 05:41 07:40 11:28 MCV 83.6 MCH 26.8 L MCHC 32.0 RDW 17.2 H Plt Count 229 D MPV 12.7 H Immature Gran % (Auto) 0.5 H Neut % (Auto) 86.9 H Lymph % (Auto) 5.2 L [place] % (Auto) 7.3 Eos % (Auto) 0.0 Baso % (Auto) 0.1 Lymph # (Auto) 0.9 L [place] # (Auto) 1.2 Eos # (Auto) 0.0 Baso # (Auto) 0.0 Abs Immat Gran (auto) 0.09 H Absolute Neuts (auto) 14.5 H Absolute Nucleated RBC 0.000 Nucleated RBC % (auto) 0.0 Anion Gap Estim Creat Clear Calc Estimated GFR POC Glucose 175 H 194 H Fasting Glucose Calcium Procedures Date of Service Date of Service: 09/20/23 Progress Note: A&P Assessment and plan (1) Status post cholecystectomy: Status: Acute Plan Encourage incentive spirometry, out of bed, p.o. liquids. All questions answered. Time Spent With Patient Time: Total time managing care of this patient today ____ minutes. Quality Stroke Does the patient have a stroke diagnosis?: No VTE Prior VTE?: No VTE Risk Level:: Medical - moderate - high VTE Device Contraindication: N/A - Device Ordered VTE Drug Contraindication: N/A - Med Ordered
[2023-09-20 16:00] VITALS: BP 141/78; PULSE 96; RESP 17; TEMP 36.5; O2SAT 93
[2023-09-20 16:29] LABS: Glucose, Whole Blood 204 mg/dL (60-115)
[2023-09-20] MEDS: 0.9 % Sodium Chloride Flush 3 ML SYRINGE IVFLUSH ×2 (16:39→23:12)
[2023-09-20 19:10] VITALS: BP 169/85; PULSE 105; RESP 20; TEMP 36.6; O2SAT 95
[2023-09-20 19:32] VITALS: BP 144/77; PULSE 74; RESP 18; TEMP 36.3; O2SAT 98
[2023-09-20 19:49] LABS: Glucose, Whole Blood 163 mg/dL (60-115)
[2023-09-20] MEDS: Docusate Sodium 100 MG CAPSULE PO (21:03)
[2023-09-20] MEDS: Latanoprost 0.005 % Ophth Sol 2.5 ML DROPS 1 DROP EYE-BOTH (21:06)
[2023-09-21 03:00] VITALS: BP 152/73; PULSE 88; RESP 18; TEMP 36.6; O2SAT 93
[2023-09-21] MEDS: oxyCODONE HCl Immed Release 5 MG TABLET 10 MG PO (03:18)
[2023-09-21] MEDS: HYDROmorphone HCl 0.5 MG/0.5 ML SYRINGE IVPUSH ×4 (04:59→21:07)
--- NOTE | 2023-09-21 05:05 | PC.NURSE ---
throughout the night pt went to BR 3 times, voided very well, offered many times to walking out to hallway, but pt refused to walked out and I.S. seems like pain is better controlled, little bit more slept, and regina. hand is less swelling than Friday night. provided many times of ice pack. pt tolerated well with ice pack. will cont. monitor.
[2023-09-21] MEDS: Acetaminophen 1,000 MG/100 ML PIGGYBACK 400 MG IV ×3 (05:55→17:44)
[2023-09-21 07:00] VITALS: BP 177/77; PULSE 91; RESP 17; TEMP 36.6; O2SAT 95
[2023-09-21 07:38] LABS: Glucose, Whole Blood 152 mg/dL (60-115)
[2023-09-21] MEDS: hydrALAZINE HCl 50 MG TABLET PO ×3 (08:03→21:07)
[2023-09-21] MEDS: lisinopriL 40 MG TABLET PO (08:04)
[2023-09-21] MEDS: Heparin Sodium,Porcine 5,000 UNIT/ML VIAL 5000 UNIT SUBCUT ×2 (08:05→17:13)
[2023-09-21] MEDS: 0.9 % Sodium Chloride Flush 3 ML SYRINGE IVFLUSH ×3 (08:05→21:07)
[2023-09-21] MEDS: Insulin Lispro 100 UNIT/ML 3 ML VIAL SUBCUT ×4 (08:05→21:06)
--- NOTE | 2023-09-21 09:26 | P.PNGS_ITS ---
Subjective Subjective Date of Service: 09/21/23 Interval history: Patient feeling better. Incisional discomfort improving. Tolerating solid diet. Physical Exam 2 Vital Signs: Vital Signs: Last Vital Signs Temp 97.8 F 09/21/23 07:00 Pulse 91 09/21/23 07:00 Resp 17 09/21/23 07:00 BP 177/77 H 09/21/23 07:00 Pulse Ox 95 09/21/23 07:00 O2 Del Method Room Air 09/21/23 07:00 O2 Flow Rate 3.0 09/19/23 16:49 BMI result Body Mass Index 33.5 GI: Other: Abdomen soft. Wounds clean dry and intact. Serous output from BLOSSOM. Objective Data Active Medications Dextrose (Dextrose 50 % 25 Gm/50 Ml Syringe) 25 gm IVPUSH Q15M PRN; Protocol PRN Reason: per Hypoglycemia Standing Ord. Docusate Sodium (Docusate Sodium 100 Mg Capsule) 100 mg PO BEDTIME [facility] Last Admin: 09/20/23 21:03 Dose: 100 mg Documented By: SOCO Glucose (Glucose Gel 15 Gm Gel..Gram.) 15 gm PO Q15M PRN; Protocol PRN Reason: per Hypoglycemia Standing Ord. Heparin Sodium (Porcine) (Heparin Sodium,Porcine 5,000 Unit/Ml Vial) 5,000 unit SUBCUT Q8H [facility] Last Admin: 09/21/23 08:05 Dose: 5,000 unit Documented By: ANNABELLE Hydralazine HCl (Hydralazine Hcl 50 Mg Tablet) 50 mg PO TID [facility]; Protocol Last Admin: 09/21/23 08:03 Dose: 50 mg Documented By: ANNABELLE Hydromorphone HCl (Hydromorphone Hcl 0.5 Mg/0.5 Ml Syringe) 0.5 mg IVPUSH Q3H PRN; Protocol PRN Reason: Pain, Severe (Pain Scale 7-10) Last Admin: 09/21/23 08:02 Dose: 0.5 mg Documented By: ANNABELLE Acetaminophen (Ofirmev) 1,000 mg in 100 mls @ 400 mls/hr IV Q6H [facility] Last Infusion: 09/21/23 06:11 Dose: Infused Documented By: SOCO Insulin Human Lispro (Insulin Lispro 100 Unit/Ml 3 Ml Vial) 0 unit SUBCUT QIDACHS [facility]; Protocol Last Admin: 09/21/23 08:05 Dose: 2 unit Documented By: ANNABELLE Latanoprost (Latanoprost 0.005 % Ophth Maria Eugenia 2.5 Ml Drops) 1 drop EYE-BOTH BEDTIME [facility] Last Admin: 09/20/23 21:06 Dose: 1 drop Documented By: SOCO Lisinopril (Lisinopril 40 Mg Tablet) 40 mg PO DAILY [facility] Last Admin: 09/21/23 08:04 Dose: 40 mg Documented By: ANNABELLE Ondansetron HCl (Ondansetron Hcl 4 Mg/2 Ml Vial) 4 mg IVPUSH Q6H PRN PRN Reason: Nausea and Vomiting Oxycodone HCl (Oxycodone Hcl Immed Release 5 Mg Tablet) 10 mg PO Q6H PRN PRN Reason: Pain, Moderate(Pain Scale 4-6) Last Admin: 09/21/23 03:18 Dose: 10 mg Documented By: SOCO Polyethylene Glycol (Polyethylene Glycol 3350 17 Gm Powd.Pack) 17 gm PO DAILY PRN PRN Reason: Constipation Sodium Chloride (0.9 % Sodium Chloride Flush 3 Ml Syringe) 3 ml IVFLUSH QSHIFT [facility] Last Admin: 09/21/23 08:05 Dose: 3 ml Documented By: ANNABELLE Labs 09/20/23 05:41 09/20/23 05:40 Labs: Laboratory Results - last 24 hr 09/20/23 09/20/23 09/20/23 11:28 16:23 19:44 POC Glucose 194 H 204 H 163 H 09/21/23 07:32 POC Glucose 152 H Procedures Date of Service Date of Service: 09/21/23 Progress Note: A&P Assessment and plan (1) Status post cholecystectomy: Status: Acute Plan Continue current plan; out of bed, incentive spirometry, follow BLOSSOM outputs. Time Spent With Patient Time: Total time managing care of this patient today ____ minutes. Quality Stroke Does the patient have a stroke diagnosis?: No VTE Prior VTE?: No VTE Risk Level:: Medical - moderate - high VTE Device Contraindication: N/A - Device Ordered VTE Drug Contraindication: N/A - Med Ordered
[2023-09-21 11:00] VITALS: BP 157/75; PULSE 84; RESP 17; TEMP 36.4; O2SAT 95
[2023-09-21 11:43] LABS: Glucose, Whole Blood 153 mg/dL (60-115)
[2023-09-21 15:36] VITALS: BP 141/98; PULSE 83; RESP 18; TEMP 36.3; O2SAT 97
[2023-09-21 17:00] LABS: Glucose, Whole Blood 186 mg/dL (60-115)
[2023-09-21 19:35] VITALS: BP 170/77; PULSE 85; RESP 20; TEMP 36.4; O2SAT 99
[2023-09-21 20:31] LABS: Glucose, Whole Blood 167 mg/dL (60-115)
[2023-09-21] MEDS: Docusate Sodium 100 MG CAPSULE PO (21:07)
[2023-09-21] MEDS: Latanoprost 0.005 % Ophth Sol 2.5 ML DROPS 1 DROP EYE-BOTH (22:13)
[2023-09-21 23:00] VITALS: BP 195/92; PULSE 95; RESP 16; TEMP 36.7; O2SAT 93
[2023-09-22] VITALS (7 sets, daily range): BP systolic 142–182; BP diastolic 78–98; PULSE 89–97; RESP 14–18; TEMP 36–36.8; O2SAT 94–96
[2023-09-22] MEDS: Heparin Sodium,Porcine 5,000 UNIT/ML VIAL 5000 UNIT SUBCUT ×3 (00:04→15:59)
--- NOTE | 2023-09-22 01:15 | PC.NURSE ---
pt bp [id number] 195/92. pt schedule bp meds 4 times a day. MD made aware no action need it at this time. provided schedule IV tylenol and pain meds per eMar. bp 182/80 at this time. will continue to monitor.
[2023-09-22] MEDS: HYDROmorphone HCl 0.5 MG/0.5 ML SYRINGE IVPUSH ×6 (04:12→23:58)
[2023-09-22] MEDS: Acetaminophen 1,000 MG/100 ML PIGGYBACK 400 MG IV ×3 (05:56→17:13)
[2023-09-22] MEDS: hydrALAZINE HCl 50 MG TABLET PO ×3 (07:50→21:50)
[2023-09-22] MEDS: lisinopriL 40 MG TABLET PO (07:50)
[2023-09-22] MEDS: 0.9 % Sodium Chloride Flush 3 ML SYRINGE IVFLUSH ×3 (07:51→23:58)
[2023-09-22 08:00] LABS: Glucose, Whole Blood 156 mg/dL (60-115)
--- NOTE | 2023-09-22 08:02 | PM.PNGS ---
Subjective Subjective Date of Service: 09/22/23 Interval history: c/o pain on incision has BMs toelrating diet also says he has chronic back pain, knee pain Physical Exam Vital Signs: Vital Signs: Last Vital Signs Temp 96.8 F 09/22/23 07:11 Pulse 89 09/22/23 07:11 Resp 14 09/22/23 07:11 BP 180/98 H 09/22/23 07:11 Pulse Ox 96 09/22/23 07:11 O2 Del Method Room Air 09/22/23 07:11 O2 Flow Rate 3.0 09/19/23 16:49 BMI result Body Mass Index 33.5 Const: Other: able to ambulate with wlaker and assistance General: no acute distress Eyes: Other: Anicteric sclerae Resp: Effort & Inspection: normal respiratory effort Cardio: Rate: regular rate GI: Other: incisions clean and dry, BLOSSOM - dark serosanguinous Palpation (GI): Soft to palpation and no guarding Objective Data Active Medications Dextrose (Dextrose 50 % 25 Gm/50 Ml Syringe) 25 gm IVPUSH Q15M PRN; Protocol PRN Reason: per Hypoglycemia Standing Ord. Docusate Sodium (Docusate Sodium 100 Mg Capsule) 100 mg PO BEDTIME [facility] Last Admin: 09/21/23 21:07 Dose: 100 mg Documented By: SOCO Glucose (Glucose Gel 15 Gm Gel..Gram.) 15 gm PO Q15M PRN; Protocol PRN Reason: per Hypoglycemia Standing Ord. Heparin Sodium (Porcine) (Heparin Sodium,Porcine 5,000 Unit/Ml Vial) 5,000 unit SUBCUT Q8H [facility] Last Admin: 09/22/23 07:50 Dose: 5,000 unit Documented By: MAGALY Hydralazine HCl (Hydralazine Hcl 50 Mg Tablet) 50 mg PO TID [facility]; Protocol Last Admin: 09/22/23 07:50 Dose: 50 mg Documented By: MAGALY Hydromorphone HCl (Hydromorphone Hcl 0.5 Mg/0.5 Ml Syringe) 0.5 mg IVPUSH Q3H PRN; Protocol PRN Reason: Pain, Severe (Pain Scale 7-10) Last Admin: 09/22/23 07:51 Dose: 0.5 mg Documented By: MAGALY Acetaminophen (Ofirmev) 1,000 mg in 100 mls @ 400 mls/hr IV Q6H [facility] Last Infusion: 09/22/23 06:11 Dose: Infused Documented By: SOCO Insulin Human Lispro (Insulin Lispro 100 Unit/Ml 3 Ml Vial) 0 unit SUBCUT QIDACHS [facility]; Protocol Last Admin: 09/22/23 08:00 Dose: Not Given Documented By: MAGALY Non-Admin Reason: Pt refusing breakfast Latanoprost (Latanoprost 0.005 % Ophth Maria Eugenia 2.5 Ml Drops) 1 drop EYE-BOTH BEDTIME [facility] Last Admin: 09/21/23 22:13 Dose: 1 drop Documented By: SOCO Lisinopril (Lisinopril 40 Mg Tablet) 40 mg PO DAILY [facility] Last Admin: 09/22/23 07:50 Dose: 40 mg Documented By: MAGALY Ondansetron HCl (Ondansetron Hcl 4 Mg/2 Ml Vial) 4 mg IVPUSH Q6H PRN PRN Reason: Nausea and Vomiting Oxycodone HCl (Oxycodone Hcl Immed Release 5 Mg Tablet) 10 mg PO Q6H PRN PRN Reason: Pain, Moderate(Pain Scale 4-6) Last Admin: 09/21/23 03:18 Dose: 10 mg Documented By: SOCO Polyethylene Glycol (Polyethylene Glycol 3350 17 Gm Powd.Pack) 17 gm PO DAILY PRN PRN Reason: Constipation Sodium Chloride (0.9 % Sodium Chloride Flush 3 Ml Syringe) 3 ml IVFLUSH QSHIFT [facility] Last Admin: 09/22/23 07:51 Dose: 3 ml Documented By: MAGALY Labs 09/20/23 05:41 09/20/23 05:40 Labs: Laboratory Results - last 24 hr 09/21/23 09/21/23 09/21/23 11:29 16:48 20:18 POC Glucose 153 H 186 H 167 H 09/22/23 07:18 POC Glucose 156 H Procedures Date of Service Date of Service: 09/22/23 Progress Note: A&P Assessment and plan (1) Status post cholecystectomy: Status: Acute Assessment and Plan: pain mgt - he is on chronic pain meds at home due to back and knee pains diet as tolerated OOB to recliner BP control - Hospitalist following blood sugar controil he says he does not want to go to Rehab on discharge PT eval Time Spent With Patient Time: Total time managing care of this patient today ____ minutes. Quality Stroke Does the patient have a stroke diagnosis?: No VTE Prior VTE?: No VTE Risk Level:: Medical - moderate - high VTE Device Contraindication: N/A - Device Ordered VTE Drug Contraindication: N/A - Med Ordered
[2023-09-22] MEDS: oxyCODONE HCl Immed Release 5 MG TABLET 10 MG PO ×2 (09:53→21:56)
[2023-09-22 11:48] LABS: Glucose, Whole Blood 189 mg/dL (60-115)
[2023-09-22] MEDS: Insulin Lispro 100 UNIT/ML 3 ML VIAL SUBCUT ×3 (11:54→21:50)
--- NOTE | 2023-09-22 13:34 | MHC.CM.PN ---
EMR REVIEWED. CM MET WITH PT WHO CONTINUES TO DECLINE STR. AGREEABLE TO [facility] IF NEEDED, REFFERAL SENT TO [facility] (FIRST CHOICE) CM WILL CONTINUE TO FOLLOW FOR ANY CHANGE IN DC PLAN/NEEDS
[2023-09-22 16:24] LABS: Glucose, Whole Blood 197 mg/dL (60-115)
[2023-09-22 20:11] LABS: Glucose, Whole Blood 167 mg/dL (60-115)
[2023-09-22] MEDS: Docusate Sodium 100 MG CAPSULE PO (21:50)
[2023-09-22] MEDS: Latanoprost 0.005 % Ophth Sol 2.5 ML DROPS 1 DROP EYE-BOTH (21:51)
[2023-09-23] VITALS (8 sets, daily range): BP systolic 139–178; BP diastolic 77–94; PULSE 95–103; RESP 16–18; TEMP 36.5–36.9; O2SAT 93–96
[2023-09-23] MEDS: Heparin Sodium,Porcine 5,000 UNIT/ML VIAL 5000 UNIT SUBCUT ×3 (00:01→16:47)
[2023-09-23] MEDS: HYDROmorphone HCl 0.5 MG/0.5 ML SYRINGE IVPUSH ×5 (04:22→18:18)
[2023-09-23 07:50] LABS: Glucose, Whole Blood 157 mg/dL (60-115)
[2023-09-23] MEDS: Insulin Lispro 100 UNIT/ML 3 ML VIAL SUBCUT ×4 (08:12→20:42)
[2023-09-23] MEDS: hydrALAZINE HCl 50 MG TABLET PO ×3 (08:12→20:42)
[2023-09-23] MEDS: lisinopriL 40 MG TABLET PO (08:12)
[2023-09-23] MEDS: 0.9 % Sodium Chloride Flush 3 ML SYRINGE IVFLUSH ×2 (08:12→16:47)
--- NOTE | 2023-09-23 09:59 | P.PNGS_ITS ---
Subjective Subjective Date of Service: 09/24/23 Interval history: Incisional pain but says this is improving Tolerating diet Has flatus Able to out of bed and ambulate although with difficulty in view of his chronic back pain and knee pain Physical Exam 2 Vital Signs: Vital Signs: Last Vital Signs Temp 98.3 F 09/23/23 07:36 Pulse 95 09/23/23 07:36 Resp 18 09/23/23 07:36 BP 150/94 H 09/23/23 07:36 Pulse Ox 93 09/23/23 07:36 O2 Del Method Room Air 09/23/23 07:36 O2 Flow Rate 3.0 09/19/23 16:49 BMI result Body Mass Index 33.5 Const: General: no acute distress Eyes: Other: Anicteric Resp: Effort & Inspection: normal respiratory effort Cardio: Rate: regular rate GI: Other: BLOSSOM drain scanty output, dark old blood Incisions clean and dry Palpation (GI): Soft to palpation, not firm and no guarding Objective Data Active Medications Dextrose (Dextrose 50 % 25 Gm/50 Ml Syringe) 25 gm IVPUSH Q15M PRN; Protocol PRN Reason: per Hypoglycemia Standing Ord. Docusate Sodium (Docusate Sodium 100 Mg Capsule) 100 mg PO BEDTIME [facility] Last Admin: 09/22/23 21:50 Dose: 100 mg Documented By: CHRISTINA Glucose (Glucose Gel 15 Gm Gel..Gram.) 15 gm PO Q15M PRN; Protocol PRN Reason: per Hypoglycemia Standing Ord. Heparin Sodium (Porcine) (Heparin Sodium,Porcine 5,000 Unit/Ml Vial) 5,000 unit SUBCUT Q8H [facility] Last Admin: 09/23/23 08:12 Dose: 5,000 unit Documented By: ANA Hydralazine HCl (Hydralazine Hcl 50 Mg Tablet) 50 mg PO TID [facility]; Protocol Last Admin: 09/23/23 08:12 Dose: 50 mg Documented By: ANA Hydromorphone HCl (Hydromorphone Hcl 0.5 Mg/0.5 Ml Syringe) 0.5 mg IVPUSH Q3H PRN; Protocol PRN Reason: Pain, Severe (Pain Scale 7-10) Last Admin: 09/23/23 08:23 Dose: 0.5 mg Documented By: ANA Insulin Human Lispro (Insulin Lispro 100 Unit/Ml 3 Ml Vial) 0 unit SUBCUT QIDACHS [facility]; Protocol Last Admin: 09/23/23 08:12 Dose: 2 unit Documented By: ANA Latanoprost (Latanoprost 0.005 % Ophth Maria Eugenia 2.5 Ml Drops) 1 drop EYE-BOTH BEDTIME [facility] Last Admin: 09/22/23 21:51 Dose: 1 drop Documented By: CHRISTINA Lisinopril (Lisinopril 40 Mg Tablet) 40 mg PO DAILY [facility] Last Admin: 09/23/23 08:12 Dose: 40 mg Documented By: ANA Ondansetron HCl (Ondansetron Hcl 4 Mg/2 Ml Vial) 4 mg IVPUSH Q6H PRN PRN Reason: Nausea and Vomiting Oxycodone HCl (Oxycodone Hcl Immed Release 5 Mg Tablet) 10 mg PO Q6H PRN PRN Reason: Pain, Moderate(Pain Scale 4-6) Last Admin: 09/22/23 21:56 Dose: 10 mg Documented By: CHRISTINA Polyethylene Glycol (Polyethylene Glycol 3350 17 Gm Powd.Pack) 17 gm PO DAILY PRN PRN Reason: Constipation Sodium Chloride (0.9 % Sodium Chloride Flush 3 Ml Syringe) 3 ml IVFLUSH QSHIFT [facility] Last Admin: 09/23/23 08:12 Dose: 3 ml Documented By: ANA Labs 09/20/23 05:41 09/20/23 05:40 Labs: Laboratory Results - last 24 hr 09/22/23 09/22/23 09/22/23 11:42 16:07 19:35 POC Glucose 189 H 197 H 167 H 09/23/23 07:32 POC Glucose 157 H Procedures Date of Service Date of Service: 09/24/23 Progress Note: A&P Assessment and plan (1) Status post cholecystectomy: Status: Acute Assessment and Plan: Clinically much improved Pain issues - control pain a little challenging in view of chronic use of narcotics Good GI functions BLOSSOM drain very scanty output Plan to DC home once with better pain control - hopefully tomorrow? Time Spent With Patient Time: Total time managing care of this patient today ____ minutes. Quality Stroke Does the patient have a stroke diagnosis?: No VTE Prior VTE?: No VTE Risk Level:: Medical - moderate - high VTE Device Contraindication: N/A - Device Ordered VTE Drug Contraindication: N/A - Med Ordered
[2023-09-23 11:24] LABS: Glucose, Whole Blood 205 mg/dL (60-115)
[2023-09-23 16:21] LABS: Glucose, Whole Blood 176 mg/dL (60-115)
[2023-09-23 20:34] LABS: Glucose, Whole Blood 191 mg/dL (60-115)
[2023-09-23] MEDS: Docusate Sodium 100 MG CAPSULE PO (20:42)
[2023-09-23] MEDS: Latanoprost 0.005 % Ophth Sol 2.5 ML DROPS 1 DROP EYE-BOTH (20:44)
[2023-09-24] VITALS (10 sets, daily range): BP systolic 137–172; BP diastolic 60–82; PULSE 16–107; RESP 16–107; TEMP 36.4–36.8; O2SAT 93–97
[2023-09-24] MEDS: 0.9 % Sodium Chloride Flush 3 ML SYRINGE IVFLUSH ×4 (00:05→23:40)
[2023-09-24] MEDS: Heparin Sodium,Porcine 5,000 UNIT/ML VIAL 5000 UNIT SUBCUT ×4 (00:06→23:40)
[2023-09-24] MEDS: HYDROmorphone HCl 0.5 MG/0.5 ML SYRINGE IVPUSH ×5 (00:06→21:20)
[2023-09-24 08:02] LABS: Glucose, Whole Blood 210 mg/dL (60-115)
[2023-09-24] MEDS: lisinopriL 40 MG TABLET PO (08:15)
[2023-09-24] MEDS: hydrALAZINE HCl 50 MG TABLET PO ×3 (08:15→21:12)
[2023-09-24] MEDS: Insulin Lispro 100 UNIT/ML 3 ML VIAL SUBCUT ×4 (08:15→21:20)
--- NOTE | 2023-09-24 09:15 | PM.PNGS ---
Subjective Subjective Date of Service: 09/24/23 Interval history: He says he still has pain and does not feel he is ready to go home today According to the nurse, he asked for Dilaudid Good oral intake according to the patient Has BMs and flatus Denies nausea or vomiting Physical Exam Vital Signs: Vital Signs: Last Vital Signs Temp 98.2 F 09/24/23 07:56 Pulse 95 09/24/23 07:56 Resp 18 09/24/23 07:56 BP 157/82 H 09/24/23 07:56 Pulse Ox 93 09/24/23 07:56 O2 Del Method Room Air 09/24/23 07:56 O2 Flow Rate 3.0 09/19/23 16:49 BMI result Body Mass Index 33.5 Const: General: no acute distress GI: Other: Soft, incision clean and dry, BLOSSOM drain serosanguineous fluid and dark old blood, no bilious output Objective Data Active Medications Dextrose (Dextrose 50 % 25 Gm/50 Ml Syringe) 25 gm IVPUSH Q15M PRN; Protocol PRN Reason: per Hypoglycemia Standing Ord. Docusate Sodium (Docusate Sodium 100 Mg Capsule) 100 mg PO BEDTIME [facility] Last Admin: 09/23/23 20:42 Dose: 100 mg Documented By: CHRISTINA Glucose (Glucose Gel 15 Gm Gel..Gram.) 15 gm PO Q15M PRN; Protocol PRN Reason: per Hypoglycemia Standing Ord. Heparin Sodium (Porcine) (Heparin Sodium,Porcine 5,000 Unit/Ml Vial) 5,000 unit SUBCUT Q8H [facility] Last Admin: 09/24/23 08:14 Dose: 5,000 unit Documented By: ANA Hydralazine HCl (Hydralazine Hcl 50 Mg Tablet) 50 mg PO TID [facility]; Protocol Last Admin: 09/24/23 08:15 Dose: 50 mg Documented By: ANA Hydromorphone HCl (Hydromorphone Hcl 0.5 Mg/0.5 Ml Syringe) 0.5 mg IVPUSH Q3H PRN; Protocol PRN Reason: Pain, Severe (Pain Scale 7-10) Last Admin: 09/24/23 08:26 Dose: 0.5 mg Documented By: ANA Insulin Human Lispro (Insulin Lispro 100 Unit/Ml 3 Ml Vial) 0 unit SUBCUT QIDACHS [facility]; Protocol Last Admin: 09/24/23 08:15 Dose: 4 unit Documented By: ANA Latanoprost (Latanoprost 0.005 % Ophth Maria Eugenia 2.5 Ml Drops) 1 drop EYE-BOTH BEDTIME [facility] Last Admin: 09/23/23 20:44 Dose: 1 drop Documented By: CHRISTINA Lisinopril (Lisinopril 40 Mg Tablet) 40 mg PO DAILY [facility] Last Admin: 09/24/23 08:15 Dose: 40 mg Documented By: ANA Ondansetron HCl (Ondansetron Hcl 4 Mg/2 Ml Vial) 4 mg IVPUSH Q6H PRN PRN Reason: Nausea and Vomiting Oxycodone HCl (Oxycodone Hcl Immed Release 5 Mg Tablet) 10 mg PO Q4H PRN PRN Reason: Pain, Moderate(Pain Scale 4-6) Polyethylene Glycol (Polyethylene Glycol 3350 17 Gm Powd.Pack) 17 gm PO DAILY PRN PRN Reason: Constipation Sodium Chloride (0.9 % Sodium Chloride Flush 3 Ml Syringe) 3 ml IVFLUSH QSHIFT [facility] Last Admin: 09/24/23 08:15 Dose: 3 ml Documented By: ANA Labs 09/24/23 09:24 09/24/23 09:24 Labs: Laboratory Results - last 24 hr 09/23/23 09/23/23 09/23/23 11:20 16:09 20:22 POC Glucose 205 H 176 H 191 H 09/24/23 07:56 POC Glucose 210 H Procedures Date of Service Date of Service: 09/24/23 Progress Note: A&P Assessment and plan (1) Status post cholecystectomy: Status: Acute Assessment and Plan: The patient says he has not ready to be discharged today and says he might be able to go home tomorrow Still asking for IV Dilaudid He is on high-dose narcotics at home due to chronic pain Will start on oral pain meds Repeat labs today Clinically looks well Time Spent With Patient Time: Total time managing care of this patient today ____ minutes. Quality Stroke Does the patient have a stroke diagnosis?: No VTE Prior VTE?: No VTE Risk Level:: Medical - moderate - high VTE Device Contraindication: N/A - Device Ordered VTE Drug Contraindication: N/A - Med Ordered
[2023-09-24 09:46] LABS: Hematocrit 37.8 % (42.0-52.0); Hemoglobin 12.4 g/dl (14.0-18.0); Mean Corpuscular HGB Conc 32.8 g/dl (31.0-36.0); Mean Corpuscular Hemoglobin 26.6 pg (27.0-33.0); Mean Corpuscular Volume 80.9 fL (80.0-98.0); Mean Platelet Volume 11.7 fL (9.4-12.4); Platelet Count 300 X10*3/uL (160-400); Red Blood Count 4.67 X10*6/uL (4.60-5.80); White Blood Count 11.3 X10*3/uL (4.8-10.8)
[2023-09-24 10:01] LABS: Alanine Aminotransferase 58 U/L (0-40); Albumin Level 3.2 g/dL (3.5-5.0); Alkaline Phosphatase 202 U/L (39-117); Anion Gap 11 (12-20); Aspartate Amino Transferase 28 U/L (5-37); Bilirubin Total 0.6 mg/dL (0.0-1.0); Blood Urea Nitrogen 22 mg/dL (9-16); Carbon Dioxide 24 mmol/L (22-29); Chloride 109 mmol/L (96-108); Creatinine Clr Calc Pharmacy 94.3; Estimated Glomerular Filt Rate > 60; Glucose Random 204 mg/dL (60-115); Potassium 3.8 mmol/L (3.3-5.1); Sodium 140 mmol/L (135-145); Total Protein 6.5 g/dL (6.5-8.0)
[2023-09-24] MEDS: oxyCODONE HCl Immed Release 5 MG TABLET 10 MG PO ×2 (10:26→15:41)
--- NOTE | 2023-09-24 11:23 | MHC.CM.PN ---
PER PREVIEW OF CHART, NO PLAN FOR DC TODAY PATIENT STILL REQUIRES PAIN MANAGEMENT. [facility] UPDATED [facility].
[2023-09-24 11:46] LABS: Glucose, Whole Blood 192 mg/dL (60-115)
--- NOTE | 2023-09-24 16:10 | PM.EVENT ---
Event Note Date of Service: 09/25/23 Event Note: Says he feels okay? Looks comfortable Abdomen soft BLOSSOM drain scanty serosanguineous output Labs okay Clinically looks well Taking oral pain meds now Possible DC home tomorrow Plan to DC drain tomorrow Time Spent With Patient Time: Total time managing care of this patient today ____ minutes.
[2023-09-24 16:30] LABS: Glucose, Whole Blood 166 mg/dL (60-115)
[2023-09-24] MEDS: Latanoprost 0.005 % Ophth Sol 2.5 ML DROPS 1 DROP EYE-BOTH (21:12)
[2023-09-24] MEDS: Docusate Sodium 100 MG CAPSULE PO (21:12)
[2023-09-24 21:13] LABS: Glucose, Whole Blood 201 mg/dL (60-115)
[2023-09-25] VITALS: BP 130/62; PULSE 67; RESP 16; TEMP 36.4; O2SAT 97
[2023-09-25] MEDS: oxyCODONE HCl Immed Release 5 MG TABLET 10 MG PO ×3 (02:55→12:25)
[2023-09-25 03:54] VITALS: BP 150/80; PULSE 91; RESP 17; TEMP 36.1; O2SAT 95
[2023-09-25 07:35] VITALS: BP 163/79; PULSE 85; RESP 18; TEMP 36.9; O2SAT 93
[2023-09-25 07:45] LABS: Glucose, Whole Blood 179 mg/dL (60-115)
--- NOTE | 2023-09-25 08:14 | PM.PNGS ---
Subjective Subjective Date of Service: 09/25/23 Interval history: still with incisional pain but says he is ready to go home tolerating diet no events reported Physical Exam Vital Signs: Vital Signs: Last Vital Signs Temp 98.5 F 09/25/23 07:35 Pulse 85 09/25/23 07:35 Resp 18 09/25/23 07:35 BP 163/79 H 09/25/23 07:35 Pulse Ox 93 09/25/23 07:35 O2 Del Method Room Air 09/25/23 07:35 O2 Flow Rate 3.0 09/19/23 16:49 BMI result Body Mass Index 33.5 Const: General: no acute distress Resp: Effort & Inspection: normal respiratory effort Cardio: Rate: regular rate GI: Other: incision clean, bruce in place; BLOSSOM - scanty serosanguinous Palpation (GI): Soft to palpation Objective Data Active Medications Dextrose (Dextrose 50 % 25 Gm/50 Ml Syringe) 25 gm IVPUSH Q15M PRN; Protocol PRN Reason: per Hypoglycemia Standing Ord. Docusate Sodium (Docusate Sodium 100 Mg Capsule) 100 mg PO BEDTIME [facility] Last Admin: 09/24/23 21:12 Dose: 100 mg Documented By: CHRISS Glucose (Glucose Gel 15 Gm Gel..Gram.) 15 gm PO Q15M PRN; Protocol PRN Reason: per Hypoglycemia Standing Ord. Heparin Sodium (Porcine) (Heparin Sodium,Porcine 5,000 Unit/Ml Vial) 5,000 unit SUBCUT Q8H [facility] Last Admin: 09/24/23 23:40 Dose: 5,000 unit Documented By: SOCO Hydralazine HCl (Hydralazine Hcl 50 Mg Tablet) 50 mg PO TID [facility]; Protocol Last Admin: 09/24/23 21:12 Dose: 50 mg Documented By: CHRISS Hydromorphone HCl (Hydromorphone Hcl 0.5 Mg/0.5 Ml Syringe) 0.5 mg IVPUSH Q3H PRN; Protocol PRN Reason: Pain, Severe (Pain Scale 7-10) Last Admin: 09/24/23 21:20 Dose: 0.5 mg Documented By: CHRISS Insulin Human Lispro (Insulin Lispro 100 Unit/Ml 3 Ml Vial) 0 unit SUBCUT QIDACHS [facility]; Protocol Last Admin: 09/24/23 21:20 Dose: 4 unit Documented By: CHRISS Latanoprost (Latanoprost 0.005 % Ophth Maria Eugenia 2.5 Ml Drops) 1 drop EYE-BOTH BEDTIME [facility] Last Admin: 09/24/23 21:12 Dose: 1 drop Documented By: CHRISS Lisinopril (Lisinopril 40 Mg Tablet) 40 mg PO DAILY [facility] Last Admin: 09/24/23 08:15 Dose: 40 mg Documented By: ANA Ondansetron HCl (Ondansetron Hcl 4 Mg/2 Ml Vial) 4 mg IVPUSH Q6H PRN PRN Reason: Nausea and Vomiting Oxycodone HCl (Oxycodone Hcl Immed Release 5 Mg Tablet) 10 mg PO Q4H PRN PRN Reason: Pain, Moderate(Pain Scale 4-6) Last Admin: 09/25/23 02:55 Dose: 10 mg Documented By: SOCO Polyethylene Glycol (Polyethylene Glycol 3350 17 Gm Powd.Pack) 17 gm PO DAILY PRN PRN Reason: Constipation Sodium Chloride (0.9 % Sodium Chloride Flush 3 Ml Syringe) 3 ml IVFLUSH QSHIFT [facility] Last Admin: 09/24/23 23:40 Dose: 3 ml Documented By: SOCO Labs 09/24/23 09:24 09/24/23 09:24 Labs: Laboratory Results - last 24 hr 09/24/23 09/24/23 09/24/23 09:24 11:25 16:26 MCV 80.9 MCH 26.6 L MCHC 32.8 RDW 17.0 H Plt Count 300 D MPV 11.7 Absolute Nucleated RBC 0.000 Nucleated RBC % (auto) 0.0 Anion Gap 11 L Estim Creat Clear Calc 94.3 Estimated GFR > 60 POC Glucose 192 H 166 H Random Glucose 204 H Calcium 9.0 Total Bilirubin 0.6 AST 28 ALT 58 H Alkaline Phosphatase 202 H Total Protein 6.5 Albumin 3.2 L 09/24/23 09/25/23 21:07 07:34 MCV MCH MCHC RDW Plt Count MPV Absolute Nucleated RBC Nucleated RBC % (auto) Anion Gap Estim Creat Clear Calc Estimated GFR POC Glucose 201 H 179 H Random Glucose Calcium Total Bilirubin AST ALT Alkaline Phosphatase Total Protein Albumin Procedures Date of Service Date of Service: 09/25/23 Progress Note: A&P Assessment and plan (1) Status post cholecystectomy: Status: Acute Assessment and Plan: looks well pain much better ok to dc home resume home meds dc BLOSSOM prior to discharge office ffup Home PT arranged - discussed with returned case inspector Time Spent With Patient Time: Total time managing care of this patient today ____ minutes. Quality Stroke Does the patient have a stroke diagnosis?: No VTE Prior VTE?: No VTE Risk Level:: Medical - moderate - high VTE Device Contraindication: N/A - Device Ordered VTE Drug Contraindication: N/A - Med Ordered
[2023-09-25] MEDS: Heparin Sodium,Porcine 5,000 UNIT/ML VIAL 5000 UNIT SUBCUT (08:17)
[2023-09-25] MEDS: hydrALAZINE HCl 50 MG TABLET PO (08:17)
[2023-09-25] MEDS: lisinopriL 40 MG TABLET PO (08:17)
[2023-09-25] MEDS: Insulin Lispro 100 UNIT/ML 3 ML VIAL SUBCUT ×2 (08:18→12:25)
[2023-09-25] MEDS: 0.9 % Sodium Chloride Flush 3 ML SYRINGE IVFLUSH (08:20)
--- NOTE | 2023-09-25 09:53 | W.MHC.F2F ---
Service Date Service Date: 09/25/23 Encounter Date of encounter: 09/25/23 Reasons for Services Signs and symptoms assessed: Postop pain after cholecystectomy Reason for physical therapy: home safety and mobility Homebound: Leaving the home is medically contraindicated at this time without the asist of a device and/or another person due th the listed conditions above and below. Reason homebound: unsteady gait / fall risk Certification: Based on the above findings, I certify that this patient is confined to the home and needs intermittent [facility] care, physical therapy and/or speech therapy, or continues to need occupational therapy. The patient is under my care, and I have initiated the establishment of the plan of care. The patient will be followed by a physician who will periodically review the plan of care. Time Spent With Patient Time: Total time managing care of this patient today ____ minutes.
--- NOTE | 2023-09-25 10:29 | MHC.CM.PN ---
PT WILL DC HOME TODAY WITH RESUMPTION OF [facility] AND NEW [facility] FOR PT. PT AWARE HIS HOME PT SERVICES WILL NOT START UNTIL EARLY NEXT WEEK AND REPORTS FEELING COMFORTABLE WITH THIS. HE WILL ARRANGE TRANSPORT
[2023-09-25 11:41] LABS: Glucose, Whole Blood 215 mg/dL (60-115)
[2023-09-25 12:00] VITALS: BP 138/71; PULSE 90; RESP 18; TEMP 36.7; O2SAT 95
--- NOTE | 2023-09-26 15:06 | P.DS_ITS ---
DS: Providers Provider Date of Service: 09/25/23 Date of admission: 09/18/23 12:12 Primary care physician: Tram Álvarez MD Attending physician on admission: Krishna Perez Consults: 09/18/23 12:12 Consult to Hospitalist Routine Comment: Consulting Provider: Hospitalist Reason For Exam: DM, HTN, CKD Attending physician on discharge: Krishna Perez DS: Diagnosis Discharge Diagnosis (1) Status post cholecystectomy: Status: Acute DS: Summary Hospital Course Hospital Course: HPI AT ADMISSION: Carlos Cabrera is a 67 year old male who came to the ER this morning because of what was initially thought was lower sternal chest pain. Cardiac workup was unremarkable. He however continued to have pain which was described to be epigastric area so he was sent for an ultrasound and CT scan. I have reviewed this and this is consistent with gallstones with acute cholecystitis The patient does point to pain on the right upper quadrant and epigastric area. He denies any nausea or vomiting. He says he may have had a similar episode many years ago. He is multiple medical problems including diabetes with polyneuropathy, chronic kidney disease, and osteoarthritis. He is homebound and has a caregiver. He has limited mobility and uses a walker. He has limited use of both hands because of arthritis. HOSPITAL COURSE: He was admitted to the surgical service for further treatment of the acute cholecystitis. Treatment options were discussed and he wanted to proceed with laparoscopic cholecystectomy with possible conversion to open. He was added onto the OR schedule for the following day. He was started on IV zosyn, gentle IVF. On 09/19/23, attempted laparoscopic cholecystectomy, converted to open cholecystectomy was performed by Dr. Perez. Patient was found to have a very thick rind, severe inflammatory changes, transverse colon adherent to the gallbladder. Patient tolerated the procedure well. He had an uncomplicated but slow recovery course due to pain. He has chronic knee and back pain and is on home narcotics and was requiring IV analgesics for several days postoperatively. His diet was advanced to solids which he was tolerating. His activity was slowly increased. His incisions were clean and BLOSSOM output remained serous. On the day of discharge, he was tolerating a solid diet with good GI function and a benign abdomen. His pain was controlled on his home analgesic regimen. His BLOSSOM was removed. He was discharged to home on 09/25/23 in stable condition. He is to follow up in the office in 2 weeks. Status at Discharge Functional status at discharge: independent ambulation Overall status at discharge: patient is progressing back to baseline Time Attestation Discharge Coordination Time (in mins): 35 Quality: Safe Use of Opioids Does Pt have an Active Cancer Diagnosis on the Problem List?: No Quality: Stroke Does the patient have a stroke diagnosis?: No Physical Exam Vital Signs: Vital Signs: Last Vital Signs Temp 98.1 F 09/25/23 12:00 Pulse 90 09/25/23 12:00 Resp 18 09/25/23 12:00 BP 138/71 09/25/23 12:00 Pulse Ox 95 09/25/23 12:00 O2 Del Method Room Air 09/25/23 12:00 O2 Flow Rate 3.0 09/19/23 16:49 BMI result Body Mass Index 33.5 Const: Orientation/consciousness: patient oriented x3 Resp: Effort & Inspection: normal respiratory effort GI: Inspection: No distended and Yes incision (clean) Palpation (GI): Soft to palpation, Tenderness to palpation present (GI) (mild incisional) and no guarding Skin: General skin exam: no rashes or lesions noted and no jaundice Neuro: General: patient oriented x3 and moves all extremities DS: Data Data Completed and Pending Completed studies during hospitalization [Text1]: 09/19/23 14:34 Surgical [PTH] Routine Gallbladder, cholecystectomy: Acute and chronic cholecystitis; cholelithiasis. Procedures Introduction of Anesthetic Agent into Peripheral Nerves and Plexi, Percutaneous Approach (05/07/23) Repair Left Upper Leg Tendon, Open Approach (05/07/23) Discharge Plan Discharge Anticipated Discharge Date/Time: 09/25/23 08:16 Patient Disposition: Home Health Service Discharge Diagnosis: acute cholecystitis Referrals: Neto RODRIGUEZ [Outside] - 3-5 Days Krishna Perez MD [Physician] - 2 Weeks Discharge Medications: New omeprazole 40 mg capsule,delayed release(DR/EC) 40 mg PO DAILY Qty: 30 0RF sucralfate 1 gram tablet 1 g PO BID Qty: 60 0RF Continued (DME) walker Misc See Rx Instructions .ROUTE .MEDSUPPLY Qty: 1 0RF Rx Instructions: As directed (DME) Ultra-Light Rollator Misc See Rx Instructions .ROUTE .MEDSUPPLY Qty: 1 0RF Rx Instructions: with seat (DME) sock aid See Rx Instructions .Route .MEDSUPPLY Qty: 1 0RF Rx Instructions: As directed (DME) leg paring machine operator See Rx Instructions .Route .MEDSUPPLY Qty: 1 0RF Rx Instructions: As directed (DME) bed rail See Rx Instructions .Route .MEDSUPPLY Qty: 1 0RF Rx Instructions: As directed (DME) FreeStyle Tirso 14 Day [place] Misc See Rx Instructions .ROUTE .MEDSUPPLY Qty: 1 0RF Rx Instructions: As directed fenofibrate nanocrystallized 145 mg tablet 145 mg PO DAILY 90 Days Qty: 90 1RF furosemide 20 mg tablet 20 mg PO DAILY 90 Days Qty: 90 1RF Januvia 25 mg tablet 25 mg PO DAILY 90 Days Qty: 90 1RF Tresiba FlexTouch U-200 200 unit/mL (3 mL) insulin pen 55 unit subcut BEDTIME 90 Days Qty: 24.75 4RF Rx Instructions: took 25 units sc 04/14/23 pm metformin 500 mg tablet extended release 24 hr 500 mg PO BID 90 Days Qty: 180 1RF (DME) pen needle, diabetic 31 gauge x 5/16 needle See Rx Instructions subcut .MEDSUPPLY Qty: 200 4RF Rx Instructions: five times a day (DME) Shower Chair Misc See Rx Instructions .Route Qty: 1 0RF Rx Instructions: As directed hydralazine 25 mg tablet 25 mg PO TID 90 Days Qty: 270 1RF (DME) Brace,wrist Misc See Rx Instructions .Route Qty: 1 0RF Rx Instructions: right hand wrist splint celecoxib 200 mg capsule 200 mg PO BID 30 Days Qty: 60 1RF benazepril 40 mg tablet 40 mg PO DAILY Qty: 30 1RF Hold Instructions: Resume on 11/16/20. Stop taking until repeat lab work is checked. atorvastatin 20 mg tablet 20 mg PO DAILY 30 Days Qty: 30 4RF icosapent ethyl [Vascepa] 1 gram capsule 2 g PO BID 30 Days Qty: 120 4RF (DME) FreeStyle Tirso 2 Sensor Kit See Rx Instructions .Route Qty: 2 11RF Rx Instructions: As directed cholecalciferol (vitamin D3) 50 mcg (2,000 unit) tablet 50 mcg PO DAILY Qty: 90 0RF oxycodone 10 mg tablet 10 mg PO Q6H PRN (Reason: Pain, Moderate(Pain Scale 4-6)) 30 Days Qty: 120 0RF Rx Instructions: Partial Fill upon patient request. latanoprost 0.005 % drops 1 drp ophthalmic (eye) BEDTIME Rx Instructions: 1 drop into both eyes aspirin 81 mg tablet,delayed release (DR/EC) 81 mg PO DAILY cyclobenzaprine 10 mg tablet 10 mg PO BEDTIME Trulicity 1.5 mg/0.5 mL pen injector 1.5 mg subcut MO insulin aspart U-100 100 unit/mL (3 mL) Insulin Pen 1 sliding scale dose subcut TIDAC Protocol: Insulin Correction Scale Less than or equal to 110 ---- Give (units): 0 111 to 150 Give (units): 0 151 to 200 Give (units): 2 201 to 250 Give (units): 4 251 to 300 Give (units): 6 301 to 350 Give (units): 8 Greater than 350 Give (units): 10 Call MD if Blood Glucose > : 350 (DME) blood pressure monitor Kit See Rx Instructions .Route Qty: 1 0RF Rx Instructions: As directed (DME) chair lift See Rx Instructions .Route .MEDSUPPLY Qty: 1 0RF Rx Instructions: As directed Discharge Orders: Discharge Order (Routine); Ordered 09/25/23 Ordered By: Krishna Perez Diet: Diabetic diet Activity on Discharge: No heavy lifting Stand Alone Forms: Patient Portal Discharge page Activity Restrictions/Additional Instructions: Ok to shower. You have bruce closing your incision and these will be removed approximately 10-14 days after surgery. NO HEAVY LIFTING (>10lbs) or strenuous activity. Follow up in office. ([phone]) Call Your Doctor If: -Your temperature exceeds 101.5? F -You experience excessive pain or swelling -You have an unexpected reaction to medication -You have excessive bleeding -You experience continued vomiting/nausea -Your incision begins to separate -Your incision shows signs of infection such as increased redness, swelling, excessive pain, drainage (light blood or clear fluid is normal) or heat Care Plan Goals: Returned to baseline health Control of chronic pain Health Concerns: Chronic pain Plan of Treatment: Continue oral pain meds Assessment: Doing well postop Discharge Date/Time: 09/25/23 15:09
== END 2023-09-25 15:09 | disposition home health service (06) | DRG 415 ==
LOC: HO.ED 13:07 → HO.EDOVER 13:13 → HO.S3 15:00
PROVIDERS: Internal Medicine; Physician Assistant Surgical; Admitting Provider Surgery; Emergency Provider Emergency Medicine; PCP Internal Medicine; Visit Provider Surgery
PROC: 0FT44ZZ Resection of Gallbladder, Percutaneous Endoscopic Approach (ICD-10-PCS; CPT 47562; principal; 2023-09-19 13:20)
DX: K80.00 Calculus of gallbladder with acute cholecystitis without obstruction (principal); I13.0 Hypertensive heart and chronic kidney disease with heart failure and stage 1 through stage 4 chronic kidney disease, or unspecified chronic kidney disease; E11.42 Type 2 diabetes mellitus with diabetic polyneuropathy; E78.2 Mixed hyperlipidemia; E11.22 Type 2 diabetes mellitus with diabetic chronic kidney disease; E78.5 Hyperlipidemia, unspecified; G89.29 Other chronic pain; M54.9 Dorsalgia, unspecified; N18.30 Chronic kidney disease, stage 3 unspecified; Z87.891 Personal history of nicotine dependence; Z79.4 Long term (current) use of insulin; Z79.82 Long term (current) use of aspirin; Z79.84 Long term (current) use of oral hypoglycemic drugs; Z79.85 Long-term (current) use of injectable non-insulin antidiabetic drugs; Z79.899 Other long term (current) drug therapy
CPT/HCPCS: 36415; 74177; 76705; 80048; 80053; 80076; 82947; 83690; 84484; 85025; 85027; 86140; 86850; 86900; 86901; 88304; 93005; 97116; 97162; 99285; J0131; J0330; J1100; J1170; J1644; J1836; J1885; J1956; J2250; J2270; J2405; J2550; J2704; J2795; J3010; Q9967

== ENCOUNTER → 2023-09-18 02:13 | Outpatient (BNV) | payer OTHER, SELFPAY | PROVIDERS: Emergency Provider Emergency Medicine; Visit Provider Internal Medicine Cardiovascular Disease | DX: R94.31 Abnormal electrocardiogram [ECG] [EKG] (principal) | CPT/HCPCS: 93010 ==

== ENCOUNTER → 2023-09-18 12:12 | Outpatient (BNV) | payer OTHER, SELFPAY | PROVIDERS: Admitting Provider Surgery; Emergency Provider Emergency Medicine; Visit Provider Physician Assistant Medical | DX: K81.0 Acute cholecystitis (principal); I10 Essential (primary) hypertension | CPT/HCPCS: 99223; 99232 ==

== ENCOUNTER → 2023-09-18 12:12 | Outpatient (BNV) | payer OTHER, SELFPAY | PROVIDERS: Admitting Provider Surgery; Emergency Provider Emergency Medicine; PCP Internal Medicine; Visit Provider Surgery | DX: Z90.49 Acquired absence of other specified parts of digestive tract (principal) | CPT/HCPCS: 47600; 99024; 99222; 99499; G0180 ==

== ENCOUNTER 2023-10-06 10:07 | Outpatient (AMB) | payer OTHER, SELFPAY ==
--- NOTE | 2023-10-06 10:11 | A.OFFVIS_ITS ---
Intake Vital Signs 10/06/23 10:17 BP 133/71 Blood Pressure Location Lt brachial Position Sitting Pulse 95 Intake Visit Reasons: s/p open cholecystectomy Intake Note: This patient presents for a post-op assessment status post open cholecystectomy. Pt c/o; reports no complaints at this time pertaining to surgery. 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 He underwent attempted laparoscopic cholecystectomy converted to open cholecystectomy for severe acute cholecystitis last September 20, 2023. He was discharged on postop day 6. He seems to be doing well at home. He denies any significant complaints. He has good oral intake. [facility] Medical History Acute cholecystitis due to biliary calculus Diabetes mellitus Essential hypertension Numbness and tingling in right hand Numbness and tingling in left hand Knee osteoarthritis Mild recurrent major depression Mixed hyperlipidemia Right shoulder pain Right knee pain Left knee pain CKD (chronic kidney disease), stage III Low back pain Multiple falls Syncope DAVINA (acute kidney injury) Obesity due to excess calories Lumbar spondylosis Proteinuria Arthritis Hypertriglyceridemia Hypertension Diabetic polyneuropathy associated with type 2 diabetes mellitus Type 2 diabetes mellitus with other diabetic kidney complication Lumbar stenosis Surgical History History of cholecystectomy (~09/19/23) History of surgery on lower extremity History of total left knee replacement (TKR) S/P evacuation of hematoma Hx of cataract surgery History of lumbar surgery Hx of eye surgery History of back surgery Family History Father Medical history unknown Mother No problems noted. Maternal Grandmother Medical history unknown Social History Household Members: None Household Members Other:: self Housing: Apartment Are you a primary critical care educator to a significant other at home: No Do you presently have visiting nurse or other home services: Yes Alcohol intake: never Comment: final count is correct Patient Tobacco Use Status: Former Tobacco user Quit Date: 2 yrs ago Tobacco use type: Cigarette Years Smoked: 25 e-Cigarette/Vaping Use: Never Used Second Hand Smoke Exposure: No Advance Directives Date on File: 05/12/23 service: No Current occupational status: disabled Cognitive needs: Yes (walker) Hearing needs: No Vision needs: Yes (reading glasses) Review of Systems Const Denies chills and Denies fever(s) Card Denies chest pain, Denies dyspnea and Reports dyspnea on exertion Resp Denies cough, Denies dyspnea and Reports dyspnea on exertion GI Denies hematochezia and Denies change in bowel habits Denies hematuria and Denies difficulty urinating Musc Reports back pain, Reports myalgias, Reports arthralgias and Reports limited range of motion Neuro Denies focal weakness and Denies convulsions Psych Denies depression and Denies mood swings Physical Exam Vital Signs: Last Vital Signs Pulse 95 10/06/23 10:17 BP 133/71 10/06/23 10:17 Const Other: Using a walker, has difficulty walking as baseline General: comfortable and no acute distress Eyes Other: Nonicteric sclerae Resp Effort & Inspection: normal respiratory effort GI Other: Incisions well healed Palpation (GI): Soft to palpation, not firm, nontender and no guarding Assessment & Plan Assessment & Plan (1) Status post cholecystectomy: Code(s): Z90.49 - Acquired absence of other specified parts of digestive tract Plan: He is doing very well after cholecystectomy, open, for severe acute cholecystitis. I removed all his skin bruce. All incisions are well healed. He was advised to avoid lifting anything more than 20 lb for at least 2 more weeks. He can follow up on a p.r.n. basis. Coding Level of Care Code Global (06233) Diagnoses Status post cholecystectomy Z90.49
[2023-10-06 10:17] VITALS: BP 133/71; PULSE 95
== END 2023-10-06 10:25 | disposition home or self-care (01) ==
LOC: HO.HGS 10:07
PROVIDERS: PCP Internal Medicine; Visit Provider Surgery
DX: Z90.49 Acquired absence of other specified parts of digestive tract (principal)
CPT/HCPCS: 99024

== ENCOUNTER → 2023-10-06 10:07 | Outpatient (BNVA) | payer OTHER, SELFPAY | PROVIDERS: PCP Internal Medicine; Visit Provider Surgery | DX: Z90.49 Acquired absence of other specified parts of digestive tract (principal) | CPT/HCPCS: 99212 ==

== ENCOUNTER 2023-10-08 11:19 | Outpatient (AMB) | payer OTHER, SELFPAY ==
--- NOTE | 2023-10-08 11:22 | A.OFFVIS_ITS ---
Intake Intake Visit Reasons: Pre Op RT CTR 10/23/23 AR Intake Note: Carlos 67 yr old male presents today for his Pre Op visit for his right hand carpal tunnel release schedule for 10/23/23 AR. Allergies Penicillins [PENICILLINS] Allergy (Severe, Verified 10/08/23 11:22) RASH jay pepper Allergy (Intermediate, Verified 10/08/23 11:22) Rash pepper (genus Capsicum) Adverse Reaction (Intermediate, Verified 10/08/23 11:22) rashes HPI Pre Op RT CTR 10/23/23 AR HPI Details Carlos is a 67 year old right hand dominant Diabetic man who returns to discuss his right carpal tunnel syndrome. He complains of numbness in all of his fingers bilaterally. his primary complaint today is of numbness in his right hand. 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 He complains of numbness radiating up his arms as well, which bothers him. He denies any prior treatment and would like to discuss surgery. He is a Diabetic, and his most recent HgA1c was 5.7 on 08/11/23%. He is listed as having a hx of Diabetic polyneuropathy. He has a hx of CKD stage III, and he had his gallbladder removed on 09/19/23. [facility] Medical History Acute cholecystitis due to biliary calculus Diabetes mellitus Essential hypertension Numbness and tingling in right hand Numbness and tingling in left hand Knee osteoarthritis Mild recurrent major depression Mixed hyperlipidemia Right shoulder pain Right knee pain Left knee pain CKD (chronic kidney disease), stage III Low back pain Multiple falls Syncope DAVINA (acute kidney injury) Obesity due to excess calories Lumbar spondylosis Proteinuria Arthritis Hypertriglyceridemia Hypertension Diabetic polyneuropathy associated with type 2 diabetes mellitus Type 2 diabetes mellitus with other diabetic kidney complication Lumbar stenosis Surgical History History of cholecystectomy (~09/19/23) History of surgery on lower extremity History of total left knee replacement (TKR) S/P evacuation of hematoma Hx of cataract surgery History of lumbar surgery Hx of eye surgery History of back surgery Family History Father Medical history unknown Mother No problems noted. Maternal Grandmother Medical history unknown Social History Household Members: None Household Members Other:: self Housing: Apartment Are you a primary intensive care nurse to a significant other at home: No Do you presently have visiting nurse or other home services: Yes Alcohol intake: never Comment: final count is correct Patient Tobacco Use Status: Former Tobacco user Quit Date: 2 yrs ago Tobacco use type: Cigarette Years Smoked: 25 e-Cigarette/Vaping Use: Never Used Second Hand Smoke Exposure: No Advance Directives Date on File: 05/12/23 service: No Current occupational status: disabled Cognitive needs: Yes (walker) Hearing needs: No Vision needs: Yes (reading glasses) Physical Exam Extrem Other: Evaluation of Bilateral Upper Extremity: The patient is alert, oriented, and in no acute distress Neuro: Dense numbness to the tips of all digits bilaterally today in clinic No thenar or intrinsic wasting Good APB muscle belly firing and good finger cross Vascular: Cap refill brisk ROM: He can make a fist and extend all his digits No locking or catching Nerve Conduction Study: Mild right carpal tunnel syndrome Early left carpal tunnel syndrome Dr. Mitchell 05/21/23 Assessment & Plan Assessment & Plan (1) Carpal tunnel syndrome of left wrist: Code(s): G56.02 - Carpal tunnel syndrome, left upper limb (2) Right carpal tunnel syndrome: Code(s): G56.01 - Carpal tunnel syndrome, right upper limb (3) Diabetes mellitus: Code(s): E11.9 - Type 2 diabetes mellitus without complications (4) Diabetic polyneuropathy associated with type 2 diabetes mellitus: Code(s): E11.42 - Type 2 diabetes mellitus with diabetic polyneuropathy Plan Assessment & Plan: 1. Right carpal tunnel syndrome, mild With dense numbness I educated him about this condition I discussed operative and non-operative treatment options The patient would like to proceed with surgery, beginning with the right side The risks and benefits of operative treatment were discussed with the patient and the patient wishes to proceed with surgery. These risks include, but are not limited to risk of damage to blood vessels, nerves, tendons, infection, recurrence, incomplete relief of preoperative symptoms, persistent pain, possible need for further surgery and the risks associated with regional blocks and anesthesia. The plan is to take the patient to the operating room sometime on 10/23/23 for the following procedures: 1. Right carpal tunnel release, under local All of the preoperative paperwork including the consent was reviewed today. All the patient's questions were answered. He denies blood thinners, asthma, heart, lung issues He is a Diabetic, his most recent HgA1c on file was 5.7% on 08/11/23. He has a hx of Stage III CKD & is listed as having a hx of Diabetic polyneuropathy 2. Left carpal tunnel syndrome, early With dense numbness He will follow up to discuss treatment options at a later date 3. Bilateral hand numbness Patient reports dense numbness to all digits including in the ulnar nerve distribution bilaterally No evidence of cubital tunnel syndrome on his last NCS Scribed for Mirella Zuluaga MD by John Archer, pediatric medical assistant, on 10/08/23 at 11:35 AM, EST. Coding Level of Care Code Est Pt Level 4 (25047) Diagnoses Carpal tunnel syndrome of left wrist G56.02 Right carpal tunnel syndrome G56.01 Diabetes mellitus E11.9 Diabetic polyneuropathy associated with type 2 diabetes mellitus E11.42
== END 2023-10-08 11:47 | disposition home or self-care (01) ==
PROVIDERS: PCP Internal Medicine; Visit Provider Orthopaedic Surgery
DX: G56.03 Carpal tunnel syndrome, bilateral upper limbs (principal); E11.42 Type 2 diabetes mellitus with diabetic polyneuropathy
CPT/HCPCS: 99024

== ENCOUNTER → 2023-10-08 11:19 | Outpatient (BNVA) | payer OTHER, SELFPAY | PROVIDERS: PCP Internal Medicine; Visit Provider Orthopaedic Surgery | DX: G56.03 Carpal tunnel syndrome, bilateral upper limbs (principal); E11.42 Type 2 diabetes mellitus with diabetic polyneuropathy | CPT/HCPCS: 99212 ==

== ENCOUNTER 2023-10-17 | Outpatient (REF) | payer OTHER, SELFPAY ==
[2023-10-17 13:01] LABS: Glucose Random 237 mg/dL (60-115)
[2023-10-17 13:36] LABS: Estimated Average Glucose 143 mg/dL; Hemoglobin A1c % 6.6 % (<6.0)
== END 2023-10-17 00:01 | disposition home or self-care (01) ==
LOC: HO.LAB
PROVIDERS: PCP Internal Medicine; Visit Provider Physician Assistant Surgical
DX: E66.9 Obesity, unspecified (principal); E11.9 Type 2 diabetes mellitus without complications; Z71.3 Dietary counseling and surveillance; Z79.4 Long term (current) use of insulin; Z79.899 Other long term (current) drug therapy
CPT/HCPCS: 36415; 82947; 83036; 99453

== ENCOUNTER 2023-10-17 11:56 | Outpatient (AMB) | payer OTHER, SELFPAY ==
--- NOTE | 2023-10-17 13:06 | A.OFFVIS_ITS ---
Intake VS Expanded 10/17/23 13:19 BP 168/89 H Blood Pressure Location Rt brachial Blood Pressure Position Sitting Pulse 88 Pulse Source Pulse Oximeter Temp 96.9 F Temperature Source Temporal Artery Scan Pulse Oximetry 97 Oxygen Delivery Method Room Air Height 5 ft 8 in Weight 207 lb 6.4 oz BMI 31.5 Body Fat % 29.4 Body Fat Mass 61.0 Fat Free Mass 146.4 Visceral Fat Rating 18.0 Body Water % 50.3 Body Water Mass 104.4 Muscle Mass/Score 140.4 Basal Metabolic Rate/Score 1,963 Intake Visit Reasons: metabolic group session Public Health Policy Analyst Required: No Allergies Penicillins [PENICILLINS] Allergy (Severe, Verified 10/08/23 11:22) RASH jay pepper Allergy (Intermediate, Verified 10/08/23 11:22) Rash pepper (genus Capsicum) Adverse Reaction (Intermediate, Verified 10/08/23 11:22) rashes Medication List - Last Reconciled 10/17/23 by JIM Braun aspirin 81 mg PO DAILY 90 days atorvastatin 20 mg PO DAILY 30 days [bed rail As directed] benazepril 40 mg PO DAILY blood pressure monitor As directed Brace,wrist right hand wrist splint celecoxib 200 mg PO BID 30 days [chair lift As directed] cholecalciferol (vitamin D3) 50 mcg PO DAILY cyclobenzaprine 10 mg PO BEDTIME dulaglutide (Trulicity) 1.5 mg subcut MO fenofibrate nanocrystallized 145 mg PO DAILY 90 days flash glucose scanning reader (FreeStyle Tirso 14 Day Taylor) As directed flash glucose sensor (FreeStyle Tirso 2 Sensor kit) As directed furosemide 20 mg PO DAILY 90 days hydralazine 25 mg PO TID 90 days icosapent ethyl (Vascepa) 2 grams (2 x 1 gram) PO BID 30 days insulin aspart U-100 1 sliding scale dose See Protocol subcut TIDAC insulin degludec (Tresiba FlexTouch U-200 insulin) 55 units (0.275 mL) subcut BEDTIME 90 days latanoprost 0.005% 1 drp ophthalmic (eye) BEDTIME [leg receiving manager As directed] metformin ER 500 mg PO BID 90 days omeprazole 40 mg PO DAILY oxycodone 10 mg PO Q6H PRN 30 days pen needle, diabetic five times a day Shower Chair As directed sitagliptin phosphate (Januvia) 25 mg PO DAILY 90 days [sock aid As directed] sucralfate 1 g PO BID walker As directed walker (Ultra-Light Rollator misc) with seat HPI HPI Comments History of Present Illness Details Patient is a pleasant 68-year-old male who returns to the metabolic weight management clinic. He was originally participating in the clinic in January 2023 however he needed to withdrawal as he had fallen requiring surgery and inpatient rehabilitation stay. He required left total knee replacement, he had left quad tendon repair, and most recently a cholecystectomy, laparoscopic converted to open for acute calculous cholecystitis. Despite all this, he has remained in good spirits. He ambulates with the use of a walker and can not travel distances. He walks in the hallway of his apartment complex when he is able. [facility] Medical History Acute cholecystitis due to biliary calculus Diabetes mellitus Essential hypertension Numbness and tingling in right hand Numbness and tingling in left hand Knee osteoarthritis Mild recurrent major depression Mixed hyperlipidemia Right shoulder pain Right knee pain Left knee pain CKD (chronic kidney disease), stage III Low back pain Multiple falls Syncope DAVINA (acute kidney injury) Obesity due to excess calories Lumbar spondylosis Proteinuria Arthritis Hypertriglyceridemia Hypertension Diabetic polyneuropathy associated with type 2 diabetes mellitus Type 2 diabetes mellitus with other diabetic kidney complication Lumbar stenosis Surgical History History of cholecystectomy (~09/19/23) History of surgery on lower extremity History of total left knee replacement (TKR) S/P evacuation of hematoma Hx of cataract surgery History of lumbar surgery Hx of eye surgery History of back surgery Family History Father Medical history unknown Mother No problems noted. Maternal Grandmother Medical history unknown Social History Household Members: None Household Members Other:: self Housing: Apartment Are you a primary care support representative to a significant other at home: No Do you presently have visiting nurse or other home services: Yes Alcohol intake: never Comment: final count is correct Patient Tobacco Use Status: Former Tobacco user Quit Date: 2 yrs ago Tobacco use type: Cigarette Years Smoked: 25 e-Cigarette/Vaping Use: Never Used Second Hand Smoke Exposure: No Advance Directives Date on File: 05/12/23 service: No Current occupational status: disabled Cognitive needs: Yes (walker) Hearing needs: No Vision needs: Yes (reading glasses) Review of Systems Const All systems reviewed & are unremarkable except as noted in HPI and below Physical Exam Vital Signs: Last Vital Signs Temp 96.9 F 10/17/23 13:19 Pulse 88 10/17/23 13:19 BP 168/89 H 10/17/23 13:19 Pulse Ox 97 10/17/23 13:19 Oxygen Delivery Method Room Air 10/17/23 13:19 BMI result Body Mass Index 31.5 Assessment & Plan Assessment & Plan (1) Obesity (BMI 30-39.9): Code(s): E66.9 - Obesity, unspecified Plan: This is a?68 yo male who will re-start our metabolic clinic weight loss program.? ? Adequate sleep of 7-8 hours per night discussed ? You should still have your body composition analyzer scale so please be sure and check weight weekly. The best time to do this is first thing in the morning after going to the bathroom. 1. Nutritional counseling: Be sure to careful read the number of scoops per shake Start with 1 celebrate protein shake ([facility] [employer], [employer], [employer]), (2 scoops in 12 oz unsweetened almond milk) at 8am-10am Meal at 1130am (6 forks of protein and 6 forks of salad/vegetables). Meal to include lean meat (beef, fish, pork, turkey, chicken), cooked vegetables or a salad with olive oil and/or fruits (berries, pears, apples, kiwi). Avoid salt, breads, potatoes, rice, pasta, desserts. 1 protein bar (Celebrate bars at [facility] [employer], [employer], [employer]) at 2pm-4pm. Another Meal at 6pm (6 forks of protein and 6 forks of salad/vegetables). Meal to include lean meat (beef, fish, pork, turkey, chicken), cooked vegetables or a salad with olive oil and/or fruits (berries, pears, apples, kiwi). Avoid salt, breads, potatoes, rice, pasta, desserts. Fresh fruit after dinner if you with including an apple, pear, kiwi, or berries Try to drink 64 oz of water daily and avoid soda and juices. ?2. Each shake would be drunk slowly, like coffee in a period of 2 hours. ?3. Cut each bar in 4 pieces and eat each piece in 30 min ?to make each bar last 2 hours. ?4. I emphasized the importance of measuring accurately the food portion and measure it carefully when serving the food on the plate ?5. The meal portions include 6 full-size forks of meat and 6 full-size forks of salad. You always eat the meat portion but you can replace up to half of the forks of salad/vegetables with rice, potatoes or pasta, or a fruit ?if you like. The less you do it the better weight loss will be. ?6. One full-size fork is what can be scooped on the fork without falling aside and not what can be bit with the fork. Use regular forks like those you find in a typical restaurant. ?7.? Please send me weight measurements as soon as possible and then once a week. Always include your diet and exercise plan. Alternatively come weekly at the office for weight checks and send me the measurements. ?8. Exercise counseling: Begin by watching a stretching for beginners video. Start slowly and begin to stretch your muscles. You should do this before and a fter each exercise session to prevent injury. You also may have exercises and stretches from rehab or PT from your knee surgery, please try to do this daily. I know it is difficult for you to walk long distances so start with walking in your hallway. Try to do this 2-3 times per day, gradually increasing the distance you are able to cover. The idea is to try to push yourself a little farther every few days as you are able. 10.? It is important to monitor your blood pressure and blood sugars very closely when you start any new meal plan. Please do not hesitate to tet me with any questions. 11. Please follow the diet plan exactly, without any change. If you do not like something about the plan or you feel hungry, you need to communicate with me so I can help you revise the plan. You should not change the plan yourself. Text me at [phone] 12. Goal is to lose at least 6-8 pounds in the first month Orders: Orders Glucose Random Today E11.9 - Type 2 diabetes mellitus without complications Hemoglobin A1c Today E11.9 - Type 2 diabetes mellitus without complications Coding Level of Care Code 22[address] [facility] Intital [facility], [facility] Diagnoses Obesity (BMI 30-39.9) E66.9
[2023-10-17 13:19] VITALS: BP 168/89; PULSE 88; TEMP 36.1; O2SAT 97; BMI 31.5
== END 2023-10-17 16:44 | disposition home or self-care (01) ==
LOC: HO.META 11:56
PROVIDERS: PCP Internal Medicine; Visit Provider Physician Assistant Surgical
DX: E66.9 Obesity, unspecified (principal)

== ENCOUNTER 2023-10-23 11:00 | Day surgery (SDC) | payer OTHER, SELFPAY ==
--- NOTE | 2023-10-23 08:22 | W.PM.OPN ---
Operative Note Operative Note Date of Service: 10/23/23 Narrative: Preop diagnosis: 1. Right Carpal tunnel syndrome Postop diagnosis: same Procedure: 1. Right Carpal tunnel release Surgeon: Mirella Zuluaga MD Anesthesia: local block using 1% lidocaine with epinephrine Findings: Thickened transverse carpal ligament. EBL: Less than 5 mL Specimens: None Complications: None Disposition: Brought to recovery room in stable condition Plan: Follow-up for 10-14 days for wound check and suture removal Indications: The patient is 68 years old, with right carpal tunnel syndrome that has been unresponsive to nonoperative management. The risks and benefits of operative treatment including but not limited to risk of damage to blood vessels, nerves, tendons, infection, persistent pain, persistent symptoms, or possible need for additional surgery were discussed with the patient and the patient wishes to proceed with surgery. Procedure: Once consent was obtained a local block was performed using a combination of 1% lidocaine with epinephrine. The patient was then brought back to the operating suite and placed on the operative table in supine position. The right upper extremity was prepped and draped in a standard surgical fashion. Once assured that we had a good block, a 2.0 cm longitudinal incision was made centered over the carpal tunnel. The incision was made through the skin to the subcutaneous tissues using a #15 blade. Dissection was made down to the level of the transverse carpal ligament with care being taken to protect the palmar cutaneous nerve. Once the transverse carpal ligament was clearly visualized, a longitudinal incision was made in the transverse carpal ligament 1st using a #15 blade, then using tenotomy scissors under direct visualization. Care was taken to look for and protect the motor branch of the median nerve when seen in this area. Once satisfied with our carpal tunnel release the wound was copiously irrigated with normal saline and hemostasis was obtained with a brief period of local pressure. The skin edges were reapproximated with some 5.0 nylon suture material and a sterile dressing was applied. The patient appears to have tolerated the procedure well and with no complications. All digits were well vascularized at the conclusion of the case.
[2023-10-23 11:25] VITALS: BP 179/83; PULSE 84; RESP 20; TEMP 36.1; O2SAT 98; BMI 32.8
--- NOTE | 2023-10-23 13:09 | PC.NURSE ---
pt eating lunch delay in procedure
--- NOTE | 2023-10-23 14:30 | MHC.SHP ---
Pre-Procedural Eval Section A - 24 Hr Update-Section A only Date of Service: 10/23/23 The patient is an INPATIENT: No Changes since office visit: No Cold of Flu in the past 2 weeks, No New Medical Problems, No Changes in Medication and No Patient answered all questions The patient has been examined within 24 hours of the surgical procedure. The History & Physical has been completed within 30 days and I have reviewed it.: Yes Section B - Complete if H&P > 30 days Chief Complaint: Carpal tunnel syndrome, right upper limb Allergies: Allergies Allergy/AdvReac Type Severity Reaction Status Date / Time Penicillins [PENICILLINS] Allergy Severe RASH Verified 10/08/23 11:22 jay pepper Allergy Intermediate Rash Verified 10/08/23 11:22 pepper (genus Capsicum) AdvReac Intermediate rashes Verified 10/08/23 11:22 Exam Exam Comment: Right carpal tunnel syndrome Plan Diagnosis/Plan: Unchanged I have reviewed the history and physical and performed a pertinent physical examination on my patient. No changes have occurred unless specified. Time Spent With Patient Time: Total time managing care of this patient today ____ minutes.
== END 2023-10-23 15:57 | disposition home or self-care (01) ==
PROVIDERS: PCP Internal Medicine; Visit Provider Orthopaedic Surgery
PROC: (CPT 64721; principal; 2023-10-23 14:30)
DX: G56.01 Carpal tunnel syndrome, right upper limb (principal); R20.0 Anesthesia of skin; E11.22 Type 2 diabetes mellitus with diabetic chronic kidney disease; I12.9 Hypertensive chronic kidney disease with stage 1 through stage 4 chronic kidney disease, or unspecified chronic kidney disease; N18.30 Chronic kidney disease, stage 3 unspecified; E11.42 Type 2 diabetes mellitus with diabetic polyneuropathy; Z79.4 Long term (current) use of insulin; Z88.0 Allergy status to penicillin; Z87.891 Personal history of nicotine dependence; Z98.890 Other specified postprocedural states
CPT/HCPCS: 64721; J0171

== ENCOUNTER → 2023-10-23 11:00 | Outpatient (BNV) | payer OTHER, SELFPAY | PROVIDERS: PCP Internal Medicine; Visit Provider Orthopaedic Surgery | DX: G56.01 Carpal tunnel syndrome, right upper limb (principal) | CPT/HCPCS: 64721 ==

== ENCOUNTER 2023-10-24 16:24 | Outpatient (AMB) | payer OTHER, SELFPAY ==
[2023-10-24 11:22] VITALS: BMI 31.8
--- NOTE | 2023-10-24 11:22 | HO.OFFWMMET ---
VS Expanded 10/24/23 11:22 Height 5 ft 8 in Weight 209 lb BMI 31.8 Intake Visit Reasons: (tv) f/u metabolic clinic Allergies Penicillins [PENICILLINS] Allergy (Severe, Verified 10/08/23 11:22) RASH jay pepper Allergy (Intermediate, Verified 10/08/23 11:22) Rash pepper (genus Capsicum) Adverse Reaction (Intermediate, Verified 10/08/23 11:22) rashes HPI Comments Details: Patient is a pleasant 68-year-old male returns to the office today for follow-up in the metabolic clinic. He was last seen for the 1st time last week with a weight of 207.4 lb. Today weight is 209 lb with a BMI of 31.8. He did undergo carpal tunnel surgery and the fluid shift may account for the weight gain. He states that he has not yet started the meal plan or any exercise plan as he was concerned about his surgery that he had yesterday. Meal plan: 1 celebrate protein shake ([facility] [employer], [employer], [employer]), (2 scoops in 12 oz unsweetened almond milk) at 8am-10am Meal at 1130am (6 forks of protein and 6 forks of salad/vegetables). 1 protein bar ([employer] bars at [facility] [employer], [employer], [employer]) at 2pm-4pm. Another Meal at 6pm (6 forks of protein and 6 forks of salad/vegetables). Fresh fruit after dinner if you with including an apple, pear, kiwi, or berries [facility] Medical History Acute cholecystitis due to biliary calculus Diabetes mellitus Essential hypertension Numbness and tingling in right hand Numbness and tingling in left hand Knee osteoarthritis Mild recurrent major depression Mixed hyperlipidemia Right shoulder pain Right knee pain Left knee pain CKD (chronic kidney disease), stage III Low back pain Multiple falls Syncope DAVINA (acute kidney injury) Obesity due to excess calories Lumbar spondylosis Proteinuria Arthritis Hypertriglyceridemia Hypertension Diabetic polyneuropathy associated with type 2 diabetes mellitus Type 2 diabetes mellitus with other diabetic kidney complication Lumbar stenosis Surgical History History of cholecystectomy (~09/19/23) History of surgery on lower extremity History of total left knee replacement (TKR) S/P evacuation of hematoma Hx of cataract surgery History of lumbar surgery Hx of eye surgery History of back surgery Family History Father Medical history unknown Mother No problems noted. Maternal Grandmother Medical history unknown Social History Household Members: None Household Members Other:: self Housing: Apartment Are you a primary home care attendant to a significant other at home: No Do you presently have visiting nurse or other home services: Yes Alcohol intake: never Comment: final count is correct Patient Tobacco Use Status: Former Tobacco user Quit Date: 2 yrs ago Tobacco use type: Cigarette Years Smoked: 25 e-Cigarette/Vaping Use: Never Used Second Hand Smoke Exposure: No Advance Directives Date on File: 05/12/23 service: No Current occupational status: disabled Cognitive needs: Yes (walker) Hearing needs: No Vision needs: Yes (reading glasses) Assessment & Plan Assessment & Plan (1) Obesity (BMI 30-39.9): Code(s): E66.9 - Obesity, unspecified Category: Medical Plan: Patient was emailed again the plans. He was encouraged to start them. Will text with any question as well as his weight weekly. Follow-up in the office in 2 weeks.
== END 2023-10-24 16:59 | disposition home or self-care (01) ==
LOC: HO.META 16:24
PROVIDERS: PCP Internal Medicine; Visit Provider Physician Assistant Surgical
DX: E66.9 Obesity, unspecified (principal)
CPT/HCPCS: 99213

== ENCOUNTER → 2023-10-24 16:24 | Outpatient (BNVA) | payer OTHER, SELFPAY | PROVIDERS: PCP Internal Medicine; Visit Provider Physician Assistant Surgical | DX: E66.9 Obesity, unspecified (principal); E11.22 Type 2 diabetes mellitus with diabetic chronic kidney disease; E11.42 Type 2 diabetes mellitus with diabetic polyneuropathy; I12.9 Hypertensive chronic kidney disease with stage 1 through stage 4 chronic kidney disease, or unspecified chronic kidney disease; N18.31 Chronic kidney disease, stage 3a; N17.9 Acute kidney failure, unspecified; Z68.31 Body mass index [BMI] 31.0-31.9, adult; Z71.3 Dietary counseling and surveillance | CPT/HCPCS: 99212 ==

== ENCOUNTER 2023-11-05 12:03 | Outpatient (AMB) | payer OTHER, SELFPAY ==
[2023-11-05 12:22] VITALS: BMI 31.8
--- NOTE | 2023-11-05 12:22 | A.OFFVIS_ITS ---
Vital Signs 11/05/23 12:22 Height 5 ft 8 in Weight 209 lb BMI 31.8 Intake Visit Reasons: PO RT CTR 10/23/23 AR Intake Note: Carlos 68 yr old male presents today for his PO right hand CTR 10/23/23 AR. States his symptoms have improved very little and cont's to have hand weakness. Sutures removed and steri strips applied Allergies Penicillins [PENICILLINS] Allergy (Severe, Verified 11/05/23 12:23) RASH jay pepper Allergy (Intermediate, Verified 11/05/23 12:23) Rash pepper (genus Capsicum) Adverse Reaction (Intermediate, Verified 11/05/23 12:23) rashes HPI HPI PO RT CTR 10/23/23 AR: Details: Carlos is a 67 year old right hand dominant Diabetic man who returns S/P right carpal tunnel release, DOS: 10/23/23 He says his sensation has improved very little, and he continues to have hand weakness with daily activities. He continues to have numbness in the left median nerve distribution and known carpal tunnel syndrome. He is a Diabetic, and his most recent HgA1c was 5.7 on 08/11/23%. He is listed as having a hx of Diabetic polyneuropathy. He has a hx of CKD stage III, and he had his gallbladder removed on 09/19/23. [facility] Medical History Acute cholecystitis due to biliary calculus Diabetes mellitus Essential hypertension Numbness and tingling in right hand Numbness and tingling in left hand Knee osteoarthritis Mild recurrent major depression Mixed hyperlipidemia Right shoulder pain Right knee pain Left knee pain CKD (chronic kidney disease), stage III Low back pain Multiple falls Syncope DAVINA (acute kidney injury) Obesity due to excess calories Lumbar spondylosis Proteinuria Arthritis Hypertriglyceridemia Hypertension Diabetic polyneuropathy associated with type 2 diabetes mellitus Type 2 diabetes mellitus with other diabetic kidney complication Lumbar stenosis Surgical History History of cholecystectomy (~09/19/23) History of surgery on lower extremity History of total left knee replacement (TKR) S/P evacuation of hematoma Hx of cataract surgery History of lumbar surgery Hx of eye surgery History of back surgery Family History Father Medical history unknown Mother No problems noted. Maternal Grandmother Medical history unknown Social History Household Members: None Household Members Other:: self Housing: Apartment Are you a primary healthcare administration internship to a significant other at home: No Do you presently have visiting nurse or other home services: Yes Alcohol intake: never Comment: final count is correct Patient Tobacco Use Status: Former Tobacco user Quit Date: 2 yrs ago Tobacco use type: Cigarette Years Smoked: 25 e-Cigarette/Vaping Use: Never Used Second Hand Smoke Exposure: No Advance Directives Date on File: 05/12/23 service: No Current occupational status: disabled Cognitive needs: Yes (walker) Hearing needs: No Vision needs: Yes (reading glasses) Review of Systems Const All systems reviewed & are unremarkable except as noted in HPI and below Physical Exam Vital Signs: BMI result Body Mass Index 31.8 Const General: no acute distress and alert Orientation/consciousness: patient oriented x3 Neuro General: patient oriented x3 Extrem Other: The patient was alert oriented and in no acute distress The incision is healing well with no erythema drainage or evidence of infection. Sutures removed and Steri-Strips applied He can make a fist and extend all his digits Still with dense numbness in the right median nerve distribution, slightly improved per patient. In regards to the left hand: Dense numbness in the median nerve distribution Cap refill is brisk Nerve Conduction Study: Mild right carpal tunnel syndrome Early left carpal tunnel syndrome Dr. Mitchell 05/21/23 Psych Appearance: grossly normal Affect: normal affect Attitude: cooperative Assessment & Plan Assessment & Plan (1) Carpal tunnel syndrome of left wrist: Code(s): G56.02 - Carpal tunnel syndrome, left upper limb Category: Medical (2) Right carpal tunnel syndrome: Code(s): G56.01 - Carpal tunnel syndrome, right upper limb Category: Medical (3) Diabetes mellitus: Code(s): E11.9 - Type 2 diabetes mellitus without complications Category: Medical (4) Diabetic polyneuropathy associated with type 2 diabetes mellitus: Code(s): E11.42 - Type 2 diabetes mellitus with diabetic polyneuropathy Category: Medical Plan Assessment & Plan: 1. Right carpal tunnel syndrome, S/P release DOS: 10/23/23 Pre-operatively with dense numbness Still with dense numbness, with a slight improvement in his sensation The patient appears to be doing well post-operatively I educated him about the post-operative course. I explained that it may take up to 9 months for any sensation to return post-operatively. I discussed activity modifications, he is to lift nothing heavier than a cellphone for the next two weeks He will perform gentle ROM exercises at home He should avoid any underwater activities for the next 5 days He should gently massage about the incision site to reduce the risk of hypersensitivity 2. Left carpal tunnel syndrome, early With dense numbness I educated him about this condition I discussed operative and non-operative treatment options The patient would like to proceed with surgery. He says he is planning to travel over the summer and will not be back in town until March He will make an appointment to follow up in March to discuss treatment options 3. Bilateral hand numbness Patient reports dense numbness to all digits including in the ulnar nerve distribution bilaterally No evidence of cubital tunnel syndrome on his last NCS Scribed for Mirella Zuluaga MD by leigh ann Gamboa scribe, on 11/05/23 at 12:40 PM, EST. Scribe Plan - Not visible on output: Scribed for Mirella Zuluaga MD by leigh ann Gamboa scribe, on [ ] at [ ], EST. Coding Level of Care Code Global (22414) Diagnoses Carpal tunnel syndrome of left wrist G56.02 Right carpal tunnel syndrome G56.01 Diabetes mellitus E11.9 Diabetic polyneuropathy associated with type 2 diabetes mellitus E11.42
== END 2023-11-05 12:48 | disposition home or self-care (01) ==
PROVIDERS: PCP Internal Medicine; Visit Provider Orthopaedic Surgery
DX: G56.03 Carpal tunnel syndrome, bilateral upper limbs (principal); E11.42 Type 2 diabetes mellitus with diabetic polyneuropathy
CPT/HCPCS: 99024

== ENCOUNTER → 2023-11-05 12:03 | Outpatient (BNVA) | payer OTHER, SELFPAY | PROVIDERS: PCP Internal Medicine; Visit Provider Orthopaedic Surgery | DX: G56.03 Carpal tunnel syndrome, bilateral upper limbs (principal); E11.42 Type 2 diabetes mellitus with diabetic polyneuropathy | CPT/HCPCS: 99212 ==

== ENCOUNTER 2023-12-18 08:57 | Outpatient (AMB) | payer OTHER, SELFPAY ==
[2023-12-18 08:59] VITALS: BP 168/100; BMI 32.2
--- NOTE | 2023-12-18 08:59 | A.OFFPC_ITS ---
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: No Accompanied by: Self / Same As Patient Allergies Penicillins [PENICILLINS] Allergy (Severe, Verified 12/18/23 09:08) RASH jay pepper Allergy (Intermediate, Verified 12/18/23 09:08) Rash pepper (genus Capsicum) Adverse Reaction (Intermediate, Verified 12/18/23 09:08) rashes Medication List - Last Reconciled 12/18/23 by Tram Álvarez MD aspirin 81 mg PO DAILY 90 days atorvastatin 20 mg PO DAILY 30 days [bed rail As directed] benazepril 40 mg PO DAILY blood pressure monitor As directed Brace,wrist right hand wrist splint celecoxib 200 mg PO BID 30 days [chair lift As directed] cholecalciferol (vitamin D3) 50 mcg PO DAILY cyclobenzaprine 10 mg PO BEDTIME 10 days dulaglutide (Trulicity) 1.5 mg subcut MO fenofibrate nanocrystallized 145 mg PO DAILY 90 days flash glucose scanning reader ([employer] 14 Day Midnight) As directed flash glucose sensor ([employer] 2 Sensor kit) As directed furosemide 20 mg PO DAILY 90 days hydralazine 25 mg PO TID 90 days icosapent ethyl (Vascepa) 2 grams (2 x 1 gram) PO BID 30 days insulin aspart U-100 1 sliding scale dose See Protocol subcut TIDAC insulin degludec (Tresiba FlexTouch U-200 insulin) 55 units (0.275 mL) subcut BEDTIME 90 days latanoprost 0.005% 1 drp ophthalmic (eye) BEDTIME [leg hydrotechnical specialist As directed] metformin ER 500 mg PO BID 90 days omeprazole 40 mg PO DAILY oxycodone 10 mg PO Q6H PRN 30 days pen needle, diabetic five times a day Shower Chair As directed sitagliptin phosphate (Januvia) 25 mg PO DAILY 90 days [sock aid As directed] sucralfate 1 g PO BID walker As directed walker (Ultra-Light Rollator mis) with seat Tobacco use date assessed: 08/11/23 Fall risk assessment: 2 + Falls in past year Last assessed Fall Risk: 12/18/23 Dental Screening Dental Screen Date: 08/11/23 HPI HPI Comments History of Present Illness Details This is a 68-year-old male with diabetes mellitus type 2 with long-term current use of insulin, hypertension, hyperlipidemia, chronic GERD and mild recurrent major depression in remission that comes today for follow-up on his conditions. He walks with a walker due to gait instability secondary to knee osteoarthritis and chronic low back pain. A1c within goal. Blood pressure elevated and I will add amlodipine 5 mg. Blood pressure will be recheck in 3 weeks by nurse navigator. Lipid panel will be order and his LDL goal should be less than 70. GERD stable with PPIs. Complains of left hand pain and weakness and would like occupational therapy for it. He has obese with a BMI of 32.2 and was advised to do diet and exercise to reach BMI goal less than 30. [facility] Medical History (Updated 12/18/23 @ 09:27 by Tram Álvarez MD) Acute cholecystitis due to biliary calculus Diabetes mellitus Essential hypertension Numbness and tingling in right hand Numbness and tingling in left hand Knee osteoarthritis Mild recurrent major depression Mixed hyperlipidemia Right shoulder pain Right knee pain Left knee pain CKD (chronic kidney disease), stage III Low back pain Multiple falls Syncope DAVINA (acute kidney injury) Obesity due to excess calories Lumbar spondylosis Proteinuria Arthritis Hypertriglyceridemia Hypertension Diabetic polyneuropathy associated with type 2 diabetes mellitus Type 2 diabetes mellitus with other diabetic kidney complication Lumbar stenosis Surgical History History of cholecystectomy (~09/19/23) History of surgery on lower extremity History of total left knee replacement (TKR) S/P evacuation of hematoma Hx of cataract surgery History of lumbar surgery Hx of eye surgery History of back surgery Family History Father Medical history unknown Mother No problems noted. Maternal Grandmother Medical history unknown Social History Household Members: None Household Members Other:: self Housing: Apartment Are you a primary furnace caretaker to a significant other at home: No Do you presently have visiting nurse or other home services: Yes Alcohol intake: never Comment: final count is correct Patient Tobacco Use Status: Former Tobacco user Tobacco use type: Cigarette Years Smoked: 25 e-Cigarette/Vaping Use: Never Used Second Hand Smoke Exposure: No Advance Directives Date on File: 05/12/23 service: No Current occupational status: disabled Cognitive needs: Yes (walker) Hearing needs: No Vision needs: Yes (reading glasses) Questionnaire Thrive Questionnaire Date Thrive assessed: 09/19/23 Currently or been in a relationship where the following occur: no concerns reported THRIVE Score: 0 CHANDU-7 AMB Questionnaire CHANDU-7 Date CHANDU - 7 assessed: 08/11/23 Source: Developed by Drs. Jorge Hopson, Stacey Meza, Mario Garcia and colleagues, with an educational ahsan from [employer] Review of Systems Const All systems reviewed & are unremarkable except as noted in HPI and below Eyes Reports no additional complaints, Denies change in vision and Denies other visual disturbances Card Denies chest pain at rest, Denies chest pain with activity, Denies edema, Denies irregular heart rhythm, Denies claudication, Denies dyspnea, Denies dyspnea on exertion, Denies orthopnea, Denies paroxysmal nocturnal dyspnea and Denies slow heart rate Resp Denies cough, Denies dyspnea and Denies dyspnea on exertion GI Denies abdominal pain, Denies change in bowel habits, Denies excessive flatus, Denies nausea and Denies vomiting Denies urinary hesitancy, Denies urinary incontinence and Denies urinary urgency Physical exam (Primary Care) Vital Signs: Last Vital Signs BP 168/100 H 12/18/23 08:59 Care Plan Goal for BP management: Recheck blood pressure with nurse navigator in 3 weeks Next steps: Start amlodipine 5 mg once a day. BMI result Body Mass Index 32.2 BMI Assessment/Plan discussion: High BMI High, discussed plan: lifestyle, weight reduction, dietary and physical activity Tobacco/Smoking Status: Tobacco use Status Tobacco use date assessed 08/11/23 12/18/23 09:03 Patient Tobacco Use Status Former Tobacco user 12/18/23 09:03 Tobacco use type Cigarette 12/18/23 09:03 e-Cigarette/Vaping Use Never Used 12/18/23 09:03 Thrive Assessment: Date of Thrive Assessment Date Thrive assessed 03/15/24 06/13/24 09:03 Currently or been in a relationship where the following occur: no concerns reported Const General: cooperative Nutritional Appearance: obese Limitations: ambulation with walker Resp Effort & Inspection: normal respiratory effort Auscultation: clear to auscultation bilaterally Cardio Jugular venous distension: no JVD Rate: regular rate Rhythm: regular rhythm Heart sounds: S1 normal heart sound present and S2 normal heart sound present Extrem General: Yes full ROM Assessment and Plan Assessment & Plan (1) Diabetes mellitus: Code(s): E11.9 - Type 2 diabetes mellitus without complications Qualifiers: Diabetes mellitus type: type 2 Diabetes mellitus terminal manager insulin use: with prison use Diabetes mellitus complication status: with neurologic complications Diabetes mellitus complication detail: with polyneuropathy Qualified Code(s): E11.42 - Type 2 diabetes mellitus with diabetic polyneuropathy; Z79.4 - 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 A1c goal is equal or less than 7%. (2) Mild recurrent major depression: Code(s): F33.0 - Major depressive disorder, recurrent, mild Plan: In remission. No need for medications. (3) Hyperlipidemia LDL goal <70: Code(s): E78.5 - Hyperlipidemia, unspecified Plan: Continue statins and fibrates. Repeat lipid panel. LDL goal is less than 70. (4) Essential hypertension: Code(s): I10 - Essential (primary) hypertension Plan: Continue hydralazine and benazepril. Start amlodipine 5 mg once a day. Recheck blood pressure with nurse navigator in 3 weeks. Blood pressure goal is equal or less than 130/80. (5) Left hand pain: Code(s): M79.642 - Pain in left hand Plan: Start occupational therapy. (6) Chronic GERD: Code(s): K21.9 - Gastro-esophageal reflux disease without esophagitis Orders: Orders Vitamin D 25-OH Total Today E55.9 - Vitamin D deficiency, unspecified Complete Blood Count Auto Diff Today D64.9 - Anemia, unspecified OT Evaluation and Treatment Today M79.642 - Pain in left hand Lipid Panel Today E78.5 - Hyperlipidemia, unspecified Microalbumin, Random (w Creat) Today E11.9 - Type 2 diabetes mellitus without complications IRON PROFILE Today D64.9 - Anemia, unspecified Comprehensive [place]. Panel Fast Today I10 - Essential (primary) hypertension Medications: New amlodipine 5 mg PO DAILY 90 days 90 tabs 1RF I10 - Essential (primary) hypertension Coding Level of Care Code Est Pt Level 4 (03611) Complex EM visit Add On G2211 Diagnoses Type 2 diabetes mellitus with diabetic polyneuropathy, with long-term current use of insulin E11.42; Z79.4 Diabetes mellitus type: type 2 Diabetes mellitus terminal manager insulin use: with terminal manager use Diabetes mellitus complication status: with neurologic complications Diabetes mellitus complication detail: with polyneuropathy Mild recurrent major depression F33.0 Hyperlipidemia LDL goal <70 E78.5 Essential hypertension I10 Left hand pain M79.642 Chronic GERD K21.9 Time Spent (min) 25
[2023-12-18 09:21] VITALS: BP 160/98
== END 2023-12-18 09:18 | disposition home or self-care (01) ==
PROVIDERS: PCP Student in an Organized Health Care Education/Training Program; Visit Provider Internal Medicine
DX: E11.42 Type 2 diabetes mellitus with diabetic polyneuropathy (principal); Z79.4 Long term (current) use of insulin; F33.0 Major depressive disorder, recurrent, mild; E78.5 Hyperlipidemia, unspecified; I10 Essential (primary) hypertension; M79.642 Pain in left hand; K21.9 Gastro-esophageal reflux disease without esophagitis
CPT/HCPCS: 99214; G2211

== ENCOUNTER 2023-12-30 10:23 | Outpatient (REF) | payer OTHER, SELFPAY ==
[2023-12-30 10:33] LABS: MANUAL DIFF FLAG NO
[2023-12-30 11:01] LABS: Basophils Absolute Auto 0.1 X10*3/uL (0.0-0.2); Basophils Percent Auto 0.6 % (0-2); Eosinophils Absolute Auto 0.4 X10*3/uL (0.0-0.4); Eosinophils Percent Auto 4.8 % (0-4); Hematocrit 47.4 % (42.0-52.0); Hemoglobin 15.1 g/dl (14.0-18.0); Imm Gran Abs Auto 0.02 X10*3/uL (0.00-0.03); Imm Gran Pct Auto 0.2 % (0.0-0.4); Lymphocytes Absolute Auto 1.7 X10*3/uL (1.2-4.9); Lymphocytes Percent Auto 19.5 % (20-40); Mean Corpuscular HGB Conc 31.9 g/dl (31.0-36.0); Mean Corpuscular Volume 81.7 fL (80.0-98.0); Mean Platelet Volume 12.2 fL (9.4-12.4); Monocytes Absolute Auto 0.7 X10*3/uL (0.1-1.2); Monocytes Percent Auto 7.6 % (2-11); Neutrophils Absolute Auto 5.9 x10*3/uL (2.0-8.3); Neutrophils Percent Auto 67.3 % (45-73); Platelet Count 205 X10*3/uL (160-400); Red Cell Distribution Width 17.1 % (11.0-16.0); White Blood Count 8.8 X10*3/uL (4.8-10.8)
[2023-12-30 11:09] LABS: Estimated Average Glucose 197 mg/dL; Hemoglobin A1c % 8.5 % (<6.0)
[2023-12-30 12:21] LABS: Alanine Aminotransferase 26 U/L (0-40); Alkaline Phosphatase 149 U/L (39-117); Anion Gap 15 (12-20); Aspartate Amino Transferase 24 U/L (5-37); Bilirubin Total 0.4 mg/dL (0.0-1.0); Blood Urea Nitrogen 12 mg/dL (9-16); Calcium 9.7 mg/dL (8.4-10.2); Carbon Dioxide 27 mmol/L (22-29); Chloride 105 mmol/L (96-108); Cholesterol 174 mg/dL (<200); Estimated Glomerular Filt Rate > 60; Glucose Fasting 148 mg/dL (60-99); HDL Cholesterol 35 mg/dL (>40); Iron 82 mcg/dL (45-160); Percent Iron Saturation 24 % (15-50); Sodium 143 mmol/L (135-145); Total Iron Binding Capacity 343 mcg/dL (228-428); Total Protein 7.4 g/dL (6.5-8.0); Triglycerides 528 mg/dL (<150); Unsaturated Iron Binding 261 ug/dL
[2023-12-30 12:35] LABS: Vitamin B12 305 pg/mL (200-900)
[2023-12-30 12:40] LABS: Vitamin D 25-OH Total 28.5 ng/mL (>30)
[2023-12-30 13:15] LABS: Folate 6.8 ng/mL (> or = 4.0)
== END 2023-12-30 10:24 | disposition home or self-care (01) ==
LOC: HO.LAB 10:23
PROVIDERS: PCP Internal Medicine; Visit Provider Internal Medicine
DX: D64.9 Anemia, unspecified (principal); E78.5 Hyperlipidemia, unspecified; E55.9 Vitamin D deficiency, unspecified; I10 Essential (primary) hypertension; E53.8 Deficiency of other specified B group vitamins; E11.40 Type 2 diabetes mellitus with diabetic neuropathy, unspecified
CPT/HCPCS: 36415; 80053; 80061; 82306; 82607; 82746; 83036; 83540; 85025

== ENCOUNTER 2024-01-01 10:13 | Outpatient (REF) | payer OTHER, SELFPAY ==
[2024-01-01 12:26] LABS: Creatinine Urine 151.78 mg/dL; Microalbum/Creatinine Ratio Ur 190.4 ug/mg cr (<30)
== END 2024-01-01 10:14 | disposition home or self-care (01) ==
LOC: HO.LAB 10:13
PROVIDERS: PCP Internal Medicine; Visit Provider Internal Medicine
DX: E11.9 Type 2 diabetes mellitus without complications (principal)
CPT/HCPCS: 82043; 82570

== ENCOUNTER 2024-01-15 10:00 | Outpatient (RCR) | payer OTHER, SELFPAY ==
--- NOTE | 2023-12-25 16:18 | MHC.OT.EP ---
[address] [phone] Occupational Therapy Plan of Care Patient Name: Carlos Cabrera Date of Evaluation: 12/25/23 Diagnosis: L hand pain Pain Location: volar side of hand/ wrist & digits Pain Score: 9 Pain Scale Used: Numeric (0 - 10) Aggravating Factors: could not quantify Alleviating Factors: none Assessment: Pt is a R hand dominant 68 yr old male who is having paresthesia and pain in his L hand / wrist/ digits on the volar side. He had CTR surgery in October on his R hand/wrist (which he reports is still painful). He had an EMG in May which was (+) for mild CT. Pt reports he is unable to do anything w/ his L hand/ wrist. Pt has been referred to skilled OT therapy to decrease sx's of CT and increase the functional use of his L hand/wrist. 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 Thank you once again for your referral.
--- NOTE | 2024-01-15 10:50 | MHC.OT.DC ---
[address] [phone] F: [phone] Occupational Therapy Discharge Note Patient Name: Carlos Cabrera Provider: Tram Álvarez Diagnosis: L hand pain Date of Surgery: Date of Evaluation: 12/25/23 Date of Discharge: 01/15/24 Treatments to Date: 4 Cancellations to Date: No Shows to Date: Discharge Status: Discharge Summary: Pt reports dec pain with CP from 01/13 to 10/14 . He will be out of the state visiting family until March. He continues to require cuing with HEP Electronically Signed By: Nora Pace Reviewed/agree with student documentation: N/A Therapist: Please Sign and return to therapist, thank you for your referral.
== END 2024-01-15 10:51 | disposition home or self-care (01) ==
LOC: HO.OT 10:00
PROVIDERS: PCP Internal Medicine; Visit Provider Internal Medicine
DX: M79.642 Pain in left hand (principal)
CPT/HCPCS: 97035; 97110; 97140; 97166; 97535

== ENCOUNTER 2024-03-31 21:13 | Emergency (ER) | payer OTHER, SELFPAY ==
--- NOTE | ~2024-03-31 | US_ITS ---
EXAMINATION: US TRIPLEX LOWER EXTREMITY, BILATERAL CLINICAL INFORMATION: Pain, swelling COMPARISON: None available. TECHNIQUE: Color-flow triplex imaging with spectral analysis and compression Doppler were performed on the bilateral lower extremities. FINDINGS: Respiratory variation, normal compression and augmented flow are noted throughout the bilateral lower extremities. The visualized common femoral vein, superficial femoral vein, profunda femoral vein, popliteal vein and midcalf peroneal and posterior tibial venous segments show no evidence of deep venous thrombosis bilaterally. There is no Coreas's cyst. US/US venous duplex LE BI IMPRESSION: No evidence of deep venous thrombosis involving the bilateral lower extremities. Electronically signed by: Angel Bush DO 03/31/2024 10:35 PM EDT
[2024-03-31 21:24] VITALS: BP 182/96; PULSE 80; O2SAT 97
[2024-03-31 21:35] VITALS: BP 215/97; PULSE 74; RESP 20; TEMP 36.9; O2SAT 96; BMI 34.3
--- NOTE | 2024-03-31 21:37 | ED.FALL ---
HPI - Fall General Chief Complaint: Fall Stated Complaint: MECHANICAL FALL, NO THINNERS/LOC/HEAD STRIKE Time Seen by Provider: 03/31/24 21:30 Source: patient, EMS and old records reviewed Mode of arrival: EMS History of Present Illness ED Provider: TONEY KINNEY Narrative: 68 yo male with PMH of HLD, GERD, DM, elevated triglycerides, CKD here with c/o 3 days of leg swelling and then trying to walk tonight and feeling like his legs gave out and he fell. He denies head strike or LOC he states he couldn't get up on his own. He uses a walker and was on the ground for about 30 minutes. He states he is not on a diuretic and his legs have never been swollen before. He is not on a blood thinner either. Due to his chronic back pain he sits in a recliner a lot and his legs hang down but he sleeps in a bed. He has not filled any medications since 11/19 but states he takes them though pharmacy fill states 11/19. He cannot tell me what medications he is on and in fact he has CHF preserved ef and was supposed to be on 20mg lasix daily. He denies any trauma from the fall. MD complaint: fall Onset (ago): minute(s) (30) Fall from: standing Fall witnessed: no Place fall occurred: home Loss of consciousness: none Prolonged down time: no Symptoms prior to fall: none Context: tripped/slipped Related Data Home Medications ?Medication ?Instructions ?Recorded ?Confirmed latanoprost 0.005 % eye drops 1 drp ophthalmic (eye) BEDTIME 11/07/20 12/18/23 dulaglutide 1.5 mg/0.5 mL 1.5 mg subcut MO 09/18/23 12/18/23 subcutaneous pen injector (Trulicity) insulin aspart U-100 100 unit/mL 1 sliding scale dose subcut TIDAC 09/18/23 12/18/23 (3 mL) subcutaneous pen Previous Rx's ?Medication ?Instructions ?Recorded walker #1 ea 01/12/21 blood pressure monitor #1 ea 05/08/22 chair lift #1 ea 09/11/22 walker (Ultra-Light Rollator misc) #1 ea 03/14/23 bed rail #1 ea 04/22/23 leg dispute specialist #1 ea 04/22/23 sock aid #1 ea 04/22/23 flash glucose scanning reader #1 ea 04/25/23 (FreeStyle Tirso 14 Day Cadwell) insulin degludec 200 unit/mL (3 55 unit (0.275 mL) subcut BEDTIME 05/07/23 mL) subcutaneous pen (Tresiba 90 days #24.75 mL FlexTouch U-200 insulin) Shower Chair #1 ea 05/13/23 Brace,wrist #1 ea 06/02/23 flash glucose sensor (FreeStyle #2 ea 09/13/23 Tirso 2 Sensor kit) omeprazole 40 mg capsule,delayed 40 mg PO DAILY #30 caps 09/18/23 release sucralfate 1 gram tablet 1 g PO BID #60 tabs 09/18/23 amlodipine 5 mg tablet 5 mg PO DAILY 90 days #90 tabs 12/18/23 atorvastatin 20 mg tablet 20 mg PO DAILY 30 days #30 tabs 01/30/24 icosapent ethyl 1 gram capsule 2 g (2 x 1 gram) PO BID 30 days 01/30/24 (Vascepa) #120 caps pen needle, diabetic 31 gauge x #200 ea 01/30/2411/19 cholecalciferol (vitamin D3) 50 50 mcg PO DAILY #90 tabs 03/14/24 mcg (2,000 unit) tablet aspirin 81 mg tablet,delayed 81 mg PO DAILY 90 days #90 tabs 03/23/24 release benazepril 40 mg tablet 40 mg PO DAILY #30 tabs 03/23/24 celecoxib 200 mg capsule 200 mg PO BID 30 days #60 caps 03/23/24 cyclobenzaprine 10 mg tablet 10 mg PO BEDTIME muscle spasm 10 03/23/24 days #10 tabs fenofibrate nanocrystallized 145 145 mg PO DAILY 90 days #90 tabs 03/23/24 mg tablet furosemide 20 mg tablet 20 mg PO DAILY 90 days #90 tabs 03/23/24 hydralazine 25 mg tablet 25 mg PO TID 90 days #270 tabs 03/23/24 metformin 500 mg tablet,extended 500 mg PO BID 90 days #180 tabs 03/23/24 release 24 hr oxycodone 10 mg tablet 10 mg PO Q6H PRN pain 30 days #120 03/23/24 tabs sitagliptin phosphate 25 mg tablet 25 mg PO DAILY 90 days #90 tabs 03/23/24 (Januvia) compr.stocking,knee,long,x-lrg #12 ea 03/31/24 Allergies Allergy/AdvReac Type Severity Reaction Status Date / Time Penicillins [PENICILLINS] Allergy Severe RASH Verified 03/31/24 21:39 jay pepper Allergy Intermediate Rash Verified 03/31/24 21:39 pepper (genus Capsicum) AdvReac Intermediate rashes Verified 03/31/24 21:39 Review of Systems Review of Systems: Constitutional : No Fever, No Chills ENT/Mouth : No Ear Pain, No Hoarseness, No sore throat Eyes: No Eye Pain, No Swelling, No Redness, No Foreign Body Cardiovascular : No Chest Pain, No SOB, pos edema Respiratory : No Cough, No Dyspnea Gastrointestinal : No Nausea, No Vomiting, No Diarrhea, No abdominal Pain Genitourinary : No Dysuria, No Hematuria Musculoskeletal : positive joint pain, No Myalgias, No Joint Swelling Skin : No Skin lacerations, No rash Neuro : No Weakness, No Numbness, No Loss of Consciousness, No Dizziness, No Headache All other systems reviewed and are negative [facility] Past Medical History Attestation statement: The following information was validated with the patient. Source: old records reviewed Medical History Acute cholecystitis due to biliary calculus Diabetes mellitus Essential hypertension Numbness and tingling in right hand Numbness and tingling in left hand Knee osteoarthritis Mild recurrent major depression Mixed hyperlipidemia Right shoulder pain Right knee pain Left knee pain CKD (chronic kidney disease), stage III Low back pain Multiple falls Syncope DAVINA (acute kidney injury) Obesity due to excess calories Lumbar spondylosis Proteinuria Arthritis Hypertriglyceridemia Hypertension Diabetic polyneuropathy associated with type 2 diabetes mellitus Type 2 diabetes mellitus with other diabetic kidney complication Lumbar stenosis Surgical History History of cholecystectomy (~09/19/23) History of surgery on lower extremity History of total left knee replacement (TKR) S/P evacuation of hematoma Hx of cataract surgery History of lumbar surgery Hx of eye surgery History of back surgery Family History Family History Father Medical history unknown Mother No problems noted. Maternal Grandmother Medical history unknown Social History Social History Household Members: None Household Members Other:: self Housing: Apartment Are you a primary ocular care technician to a significant other at home: No Do you presently have visiting nurse or other home services: Yes Alcohol intake: never Comment: final count is correct Patient Tobacco Use Status: Former Tobacco user Tobacco use type: Cigarette Years Smoked: 25 e-Cigarette/Vaping Use: Never Used Second Hand Smoke Exposure: No Advance Directives: Yes Advance Directives on File: Yes Advance Directives Date on File: 05/12/23 service: No Current occupational status: disabled Cognitive needs: Yes (walker) Hearing needs: No Vision needs: Yes (reading glasses) Physical Exam Vital Signs: Vital Signs: Last Vital Signs Temp 98.5 F 03/31/24 21:35 Pulse 74 03/31/24 23:40 Resp 16 03/31/24 23:40 BP 191/84 H 03/31/24 23:40 Pulse Ox 95 03/31/24 23:40 O2 Del Method Room Air 03/31/24 23:40 BMI result Body Mass Index 34.3 Appearance: Alert. Oriented X3. No acute distress. Eyes: Pupils equal, round and reactive to light. ENT: Pharynx normal. atraumatic Neck: Normal inspection. Neck supple. CVS: Normal heart rate and rhythm. Pulses normal. Respiratory: No respiratory distress. Breath sounds normal. Abdomen: Soft and nontender. Skin: Skin warm and dry. Normal skin color. Normal skin turgor. Extremities:1-2+ symmetric pitting lower extremity edema. Neuro: Oriented X 3. No motor deficit. No sensory deficit. Medications Administered Discontinued Medications Generic Name Dose Route Start Last Admin Trade Name Freq PRN Reason Stop Dose Admin Amlodipine Besylate 5 mg 03/31/24 21:43 03/31/24 21:49 Amlodipine Besylate 5 Mg Tablet PO 03/31/24 21:44 5 mg ONCE ONE Administration Protocol Hydralazine HCl 25 mg 03/31/24 21:43 03/31/24 21:49 Hydralazine Hcl 25 Mg Tablet PO 03/31/24 21:44 25 mg ONCE ONE Administration Protocol Medical Decision Making Medical Decision Making MDM Narrative: 68 yo male with PMH of HLD, GERD, DM, elevated triglycerides, CKD here with c/o leg edema and then trip and fall tonight due to his legs giving out he is very HTNive and states he is compliant with all medications though has not filled any medications since 11/19 and cannot tell me his medications. At this time no trauma or headstrike in the fall will obtain basic labs, DVT study, PO BP medications suspect CHF issue/dependent edema/DVT/non-compliance Differential Diagnosis Differential Diagnoses: The differential diagnosis associated with the presentation includes CHF issue/dependent edema/DVT/non-compliance Admission/Observation Consideration of admission/observation: Escalation of care including admission/observation considered offered rehab but he refuses at this time able to get up and use walker without issue Lab Data MDM Lab Attestation statement: I reviewed the patient's lab results. 03/31/24 22:20 03/31/24 22:20 Labs: Lab Results 03/31/24 Range/Units 22:20 WBC 9.5 (4.8-10.8) X10*3/uL RBC 5.17 (4.60-5.80) X10*6/uL Hgb 14.3 (14.0-18.0) g/dl Hct 43.4 (42.0-52.0) % MCV 83.9 (80.0-98.0) fL MCH 27.7 (27.0-33.0) pg MCHC 32.9 (31.0-36.0) g/dl RDW 17.9 H (11.0-16.0) % Plt Count 201 (160-400) X10*3/uL MPV 11.9 (9.4-12.4) fL Immature Gran % (Auto) 0.3 (0.0-0.4) % Neut % (Auto) 69.6 (45-73) % Lymph % (Auto) 18.2 L (20-40) % Eddy % (Auto) 7.9 (2-11) % Eos % (Auto) 3.5 (0-4) % Baso % (Auto) 0.5 (0-2) % Lymph # (Auto) 1.7 (1.2-4.9) X10*3/uL Eddy # (Auto) 0.8 (0.1-1.2) X10*3/uL Eos # (Auto) 0.3 (0.0-0.4) X10*3/uL Baso # (Auto) 0.1 (0.0-0.2) X10*3/uL Abs Immat Gran (auto) 0.03 (0.00-0.03) X10*3/uL Absolute Neuts (auto) 6.6 (2.0-8.3) x10*3/uL Absolute Nucleated RBC 0.000 (0.0-0.012) X10*3/uL Nucleated RBC % (auto) 0.0 (0.0-0.2) /100WBC PT 10.7 L (10.9-12.4) SEC INR 0.9 (0.9-1.1) Sodium 146 H (135-145) mmol/L Potassium 4.1 (3.3-5.1) mmol/L Chloride 109 H (96-108) mmol/L Carbon Dioxide 25 (22-29) mmol/L Anion Gap 16 (12-20) BUN 19 H (9-16) mg/dL Creatinine 1.01 (0.5-1.4) mg/dL Estim Creat Clear Calc 81.1 Estimated GFR > 60 Random Glucose 177 H (60-115) mg/dL Calcium 9.6 (8.4-10.2) mg/dL Magnesium 2.0 (1.6-2.6) mg/dL Total Bilirubin 0.4 (0.0-1.0) mg/dL Direct Bilirubin 0.1 (0.0-0.5) mg/dL AST 28 (5-37) U/L ALT 44 H (0-40) U/L Alkaline Phosphatase 163 H (39-117) U/L Total Creatine Kinase 286 H (38-174) U/L B-Natriuretic Peptide 67 (<100) pg/mL Total Protein 7.5 (6.5-8.0) g/dL Albumin 4.1 (3.5-5.0) g/dL Independent Interpretation I performed an independent interpretation of an: EKG and Ultrasound (no DVT) Interpretation: Rate: 68 Rhythm: NSR [place]: left Normal P waves. Normal SHELBI. Normal QRS complex. ST T wave : normal no CATIE qTC: 418 prior studies: no acute ischemia The study has been interpreted contemporaneously by me. . Radiology Impression Discussion of test interpretation with radiology: I have reviewed the radiologist's reading. Independent Historian Clinical information obtained from an independent historian. History obtained from or confirmed by: EMS External Record Review External record reviewed: Inpatient record Discharge Plan Discharge Clinical Impression: Fall on same level from tripping, Dependent edema Patient Disposition: Home, Self-Care Instructions: Leg Edema (ED) Additional Instructions: labs reassuring please call your doctor tomorrow and make sure you have all of your medications you are on a diuretic or should be on a diuretic (water pill) you do not have a blood clot you were offered rehab but declined return for any worsening symptoms or concerns wear compression stockings and keep legs elevated as much as possible Prescriptions: New (DME) compr.stocking,knee,long,x-lrg Misc See Rx Instructions .Route Qty: 12 0RF Rx Instructions: As directed No Action (DME) walker Misc See Rx Instructions .ROUTE .MEDSUPPLY Qty: 1 0RF Rx Instructions: As directed (DME) Ultra-Light Rollator Misc See Rx Instructions .ROUTE .MEDSUPPLY Qty: 1 0RF Rx Instructions: with seat (DME) sock aid See Rx Instructions .Route .MEDSUPPLY Qty: 1 0RF Rx Instructions: As directed (DME) leg dispute specialist See Rx Instructions .Route .MEDSUPPLY Qty: 1 0RF Rx Instructions: As directed (DME) bed rail See Rx Instructions .Route .MEDSUPPLY Qty: 1 0RF Rx Instructions: As directed (DME) FreeStyle Tirso 14 Day Cadwell Misc See Rx Instructions .ROUTE .MEDSUPPLY Qty: 1 0RF Rx Instructions: As directed Tresiba FlexTouch U-200 200 unit/mL (3 mL) insulin pen 55 unit subcut BEDTIME 90 Days Qty: 24.75 4RF Rx Instructions: took 25 units sc 04/14/ pm (DME) Shower Chair Misc See Rx Instructions .Route Qty: 1 0RF Rx Instructions: As directed (DME) Brace,wrist Misc See Rx Instructions .Route Qty: 1 0RF Rx Instructions: right hand wrist splint (DME) FreeStyle Tirso 2 Sensor Kit See Rx Instructions .Route Qty: 2 11RF Rx Instructions: As directed atorvastatin 20 mg tablet 20 mg PO DAILY 30 Days Qty: 30 4RF (DME) pen needle, diabetic 31 gauge x 5/16 needle See Rx Instructions subcut .MEDSUPPLY Qty: 200 4RF Rx Instructions: five times a day icosapent ethyl [Vascepa] 1 gram capsule 2 g PO BID 30 Days Qty: 120 4RF cholecalciferol (vitamin D3) 50 mcg (2,000 unit) tablet 50 mcg PO DAILY Qty: 90 0RF oxycodone 10 mg tablet 10 mg PO Q6H PRN (Reason: pain) 30 Days Qty: 120 0RF Rx Instructions: Partial Fill upon patient request. hydralazine 25 mg tablet 25 mg PO TID 90 Days Qty: 270 5RF furosemide 20 mg tablet 20 mg PO DAILY 90 Days Qty: 90 5RF Januvia 25 mg tablet 25 mg PO DAILY 90 Days Qty: 90 5RF benazepril 40 mg tablet 40 mg PO DAILY Qty: 30 1RF aspirin 81 mg tablet,delayed release (DR/EC) 81 mg PO DAILY 90 Days Qty: 90 5RF metformin 500 mg tablet extended release 24 hr 500 mg PO BID 90 Days Qty: 180 5RF celecoxib 200 mg capsule 200 mg PO BID 30 Days Qty: 60 1RF fenofibrate nanocrystallized 145 mg tablet 145 mg PO DAILY 90 Days Qty: 90 5RF cyclobenzaprine 10 mg tablet 10 mg PO BEDTIME 10 Days Qty: 10 5RF latanoprost 0.005 % drops 1 drp ophthalmic (eye) BEDTIME Rx Instructions: 1 drop into both eyes omeprazole 40 mg capsule,delayed release(DR/EC) 40 mg PO DAILY Qty: 30 0RF sucralfate 1 gram tablet 1 g PO BID Qty: 60 0RF Trulicity 1.5 mg/0.5 mL pen injector 1.5 mg subcut MO insulin aspart U-100 100 unit/mL (3 mL) Insulin Pen 1 sliding scale dose subcut TIDAC Protocol: Insulin Correction Scale Less than or equal to 110 ---- Give (units): 0 111 to 150 Give (units): 0 151 to 200 Give (units): 2 201 to 250 Give (units): 4 251 to 300 Give (units): 6 301 to 350 Give (units): 8 Greater than 350 Give (units): 10 Call MD if Blood Glucose > : 350 (DME) blood pressure monitor Kit See Rx Instructions .Route Qty: 1 0RF Rx Instructions: [place] directed [place] chair lift See Rx Instructions .Route .MEDSUPPLY Qty: 1 0RF Rx Instructions: As directed amlodipine 5 mg tablet 5 mg PO DAILY 90 Days Qty: 90 1RF Print Language: Montenegrin
--- NOTE | 2024-03-31 21:43 | PC.NURSE ---
MD aware of elevate BP, meds ordered and administered.
[2024-03-31 21:49] VITALS: BP 215/97
[2024-03-31] MEDS: amLODIPine Besylate 5 MG TABLET PO (21:49)
[2024-03-31] MEDS: hydrALAZINE HCl 25 MG TABLET PO (21:49)
--- NOTE | 2024-03-31 21:50 | ECG_ITS ---
Test Reason : FALL Blood Pressure : / mmHG Vent. Rate : 068 BPM Atrial Rate : 068 BPM P-R Int : 160 ms QRS Dur : 088 ms QT Int : 394 ms P-R-T Axes : 060 -21 026 degrees QTc Int : 418 ms Normal sinus rhythm Normal ECG When compared with ECG of 18-SEP-2023 02:13, No significant change was found Referred By: Anna Johnston Electronically Signed By:NIKI CARVAJAL
[2024-03-31 22:27] LABS: MANUAL DIFF FLAG NO
[2024-03-31 22:34] LABS: Basophils Absolute Auto 0.1 X10*3/uL (0.0-0.2); Basophils Percent Auto 0.5 % (0-2); Eosinophils Absolute Auto 0.3 X10*3/uL (0.0-0.4); Eosinophils Percent Auto 3.5 % (0-4); Hematocrit 43.4 % (42.0-52.0); Hemoglobin 14.3 g/dl (14.0-18.0); Imm Gran Abs Auto 0.03 X10*3/uL (0.00-0.03); Imm Gran Pct Auto 0.3 % (0.0-0.4); Lymphocytes Absolute Auto 1.7 X10*3/uL (1.2-4.9); Lymphocytes Percent Auto 18.2 % (20-40); Mean Corpuscular HGB Conc 32.9 g/dl (31.0-36.0); Mean Corpuscular Hemoglobin 27.7 pg (27.0-33.0); Mean Corpuscular Volume 83.9 fL (80.0-98.0); Mean Platelet Volume 11.9 fL (9.4-12.4); Monocytes Absolute Auto 0.8 X10*3/uL (0.1-1.2); Monocytes Percent Auto 7.9 % (2-11); Neutrophils Absolute Auto 6.6 x10*3/uL (2.0-8.3); Neutrophils Percent Auto 69.6 % (45-73); Platelet Count 201 X10*3/uL (160-400); Red Blood Count 5.17 X10*6/uL (4.60-5.80); Red Cell Distribution Width 17.9 % (11.0-16.0); White Blood Count 9.5 X10*3/uL (4.8-10.8)
[2024-03-31 22:42] LABS: Alanine Aminotransferase 44 U/L (0-40); Albumin Level 4.1 g/dL (3.5-5.0); Alkaline Phosphatase 163 U/L (39-117); Anion Gap 16 (12-20); Aspartate Amino Transferase 28 U/L (5-37); Bilirubin Direct 0.1 mg/dL (0.0-0.5); Bilirubin Total 0.4 mg/dL (0.0-1.0); Blood Urea Nitrogen 19 mg/dL (9-16); Calcium 9.6 mg/dL (8.4-10.2); Carbon Dioxide 25 mmol/L (22-29); Chloride 109 mmol/L (96-108); Creatinine Clr Calc Pharmacy 81.1; Estimated Glomerular Filt Rate > 60; Glucose Random 177 mg/dL (60-115); Potassium 4.1 mmol/L (3.3-5.1); Sodium 146 mmol/L (135-145); Total Protein 7.5 g/dL (6.5-8.0)
[2024-03-31 22:48] LABS: B Type Natriuretic Peptide 67 pg/mL (<100)
[2024-03-31 22:57] LABS: INTERNATIONAL NORM RATIO 0.9 (0.9-1.1); Prothrombin Time 10.7 SEC (10.9-12.4)
[2024-03-31 23:40] VITALS: BP 191/84; PULSE 74; RESP 16; O2SAT 95
[2024-03-31] MEDS: oxyCODONE HCl Immed Release 5 MG TABLET 10 MG PO (23:50)
== END 2024-04-01 00:56 | disposition home or self-care (01) ==
PROVIDERS: Emergency Provider Emergency Medicine; PCP Internal Medicine
DX: R60.0 Localized edema (principal); Z91.81 History of falling; M54.9 Dorsalgia, unspecified; E11.22 Type 2 diabetes mellitus with diabetic chronic kidney disease; I12.9 Hypertensive chronic kidney disease with stage 1 through stage 4 chronic kidney disease, or unspecified chronic kidney disease; N18.30 Chronic kidney disease, stage 3 unspecified; N17.9 Acute kidney failure, unspecified; E78.5 Hyperlipidemia, unspecified; Z99.3 Dependence on wheelchair; Z79.899 Other long term (current) drug therapy; Z79.02 Long term (current) use of antithrombotics/antiplatelets; Z79.4 Long term (current) use of insulin; Z79.82 Long term (current) use of aspirin
CPT/HCPCS: 36415; 80048; 80076; 82550; 83735; 83880; 85025; 85610; 93005; 93970; 99284

== ENCOUNTER 2024-04-02 11:02 | Outpatient (AMB) | payer OTHER, SELFPAY ==
--- NOTE | 2024-04-02 11:04 | A.OFFPC_ITS ---
Vital Signs 04/02/24 11:07 BMI Reason not done Patient refused/unable BP 146/84 H Blood Pressure Location Lt brachial Position Sitting Pulse 84 Pulse Source Pulse Oximeter Pulse Oximetry (%) 97 Oxygen Delivery Method Room Air Intake Visit Reasons: HDF [facility] [place] 03/31 Fall Intake Note: Patient is here to follow-up after a visit the emergency department at [facility] [place] on 04/01/24. Insulation Applicator Required: No Accompanied by: Self / Same As Patient Allergies Penicillins [PENICILLINS] Allergy (Severe, Verified 04/02/24 11:05) RASH jay pepper Allergy (Intermediate, Verified 04/02/24 11:05) Rash pepper (genus Capsicum) Adverse Reaction (Intermediate, Verified 04/02/24 11:05) rashes Tobacco use date assessed: 08/11/23 Fall risk assessment: 2 + Falls in past year (5 falls within current months of March. ) Last assessed Fall Risk: 04/02/24 Dental Screening Dental Screen Date: 08/11/23 HPI HPI Comments History of Present Illness Details 68 y/o male patient who presents to the clinic for EDF. He was admitted at [facility] [place] on 03/31/24 after he suffered a Fall at home. He was discharged home in stable condition. Pt is poor historian and does no know what medications he takes daily. Pt asking for water Pills because of his lower legs Edema. Denies SOB, CP, or wheezing. Per chart review Pt already taking Lasix 20 mg, not clear to me if he takes it as prescribed. Per Pt he sees a Kidney doctor in 2 weeks. Denies any Cardiac problem. . [facility] Medical History Acute cholecystitis due to biliary calculus Diabetes mellitus Essential hypertension Numbness and tingling in right hand Numbness and tingling in left hand Knee osteoarthritis Mild recurrent major depression Mixed hyperlipidemia Right shoulder pain Right knee pain Left knee pain CKD (chronic kidney disease), stage III Low back pain Multiple falls Syncope DAVINA (acute kidney injury) Obesity due to excess calories Lumbar spondylosis Proteinuria Arthritis Hypertriglyceridemia Hypertension Diabetic polyneuropathy associated with type 2 diabetes mellitus Type 2 diabetes mellitus with other diabetic kidney complication Lumbar stenosis Surgical History History of cholecystectomy (~09/19/23) History of surgery on lower extremity History of total left knee replacement (TKR) S/P evacuation of hematoma Hx of cataract surgery History of lumbar surgery Hx of eye surgery History of back surgery Family History Father Medical history unknown Mother No problems noted. Maternal Grandmother Medical history unknown Social History Household Members: None Household Members Other:: self Housing: Apartment Are you a primary health care facility administrator to a significant other at home: No Do you presently have visiting nurse or other home services: Yes Alcohol intake: never Comment: final count is correct Patient Tobacco Use Status: Former Tobacco user Tobacco use type: Cigarette Years Smoked: 25 e-Cigarette/Vaping Use: Never Used Second Hand Smoke Exposure: No Advance Directives Date on File: 05/12/23 service: No Current occupational status: disabled Cognitive needs: Yes (walker) Hearing needs: No Vision needs: Yes (reading glasses) Questionnaire Thrive Questionnaire Date Thrive assessed: 09/19/23 CHANDU-7 AMB Questionnaire CHANDU-7 Date CHANDU - 7 assessed: 08/11/23 Source: Developed by Drs. Jorge Hopson, Stacey Meza, Mario Garcia and colleagues, with an educational ahsan from [employer]. Physical exam (Primary Care) Vital Signs: Last Vital Signs Pulse 84 04/02/24 11:07 BP 146/84 H 04/02/24 11:07 Pulse Ox 97 04/02/24 11:07 Oxygen Delivery Method Room Air 04/02/24 11:07 Tobacco/Smoking Status: Tobacco use Status Tobacco use date assessed 08/11/23 04/02/24 11:13 Patient Tobacco Use Status Former Tobacco user 04/02/24 11:13 Tobacco use type Cigarette 04/02/24 11:13 e-Cigarette/Vaping Use Never Used 04/02/24 11:13 Thrive Assessment: Date of Thrive Assessment Date Thrive assessed 09/19/23 04/02/24 11:13 Const Other: Uses Wheelchair for ambulation due to lower legs weakness. General: no acute distress Nutritional Appearance: obese Orientation/consciousness: patient oriented x3 Limitations: wheelchair Resp Effort & Inspection: normal respiratory effort Auscultation: clear to auscultation bilaterally, no crackles, no rales, no rhonchi and no wheezes Cardio Heart sounds: S1 normal heart sound present and S2 normal heart sound present Neuro General: patient oriented x3 Extrem Right lower extremity: full ROM and lower leg Details: pitting edema Details: 3+ Left lower extremity: full ROM and lower leg Details: pitting edema Details: 3+ Psych Speech and movement: Normal speech and movement present Assessment and Plan Assessment & Plan (1) CKD (chronic kidney disease) stage 2, GFR 60-89 ml/min: Code(s): N18.2 - Chronic kidney disease, stage 2 (mild) Plan: Managed by Nephrology (2) Peripheral edema: Code(s): R60.0 - Localized edema Plan: Currently prescribed Lasix. Not clear if he takes it as prescribed. Patient does not know what medications he is suppose to be taking. He was prescribed Compression Stockings by ED, but he is not wearing them today. F/U with PCP. Coding Level of Care Code Est Pt Level 4 (69526) Diagnoses CKD (chronic kidney disease) stage 2, GFR 60-89 ml/min N18.2 Peripheral edema R60.0 Time Spent (min) 20 Comment Spent reviewing hospital notes
[2024-04-02 11:07] VITALS: BP 146/84; PULSE 84; O2SAT 97
== END 2024-04-02 11:32 | disposition home or self-care (01) ==
PROVIDERS: PCP Internal Medicine; Visit Provider Nurse Practitioner Family
DX: N18.2 Chronic kidney disease, stage 2 (mild) (principal); R60.0 Localized edema

== ENCOUNTER → 2024-04-02 11:02 | Outpatient (BNVA) | payer OTHER, SELFPAY | PROVIDERS: PCP Internal Medicine; Visit Provider Nurse Practitioner Family | DX: N18.2 Chronic kidney disease, stage 2 (mild) (principal); R60.0 Localized edema | CPT/HCPCS: 99212 ==

== ENCOUNTER 2024-04-09 16:01 | Emergency (ER) | payer OTHER, SELFPAY ==
[2024-04-09 16:06] VITALS: BP 200/120; PULSE 81; O2SAT 98
[2024-04-09 16:17] VITALS: BP 162/88; PULSE 74; RESP 16; TEMP 36.8; O2SAT 96; BMI 38.0
--- OUTSIDE RECORDS SUMMARY | 2024-04-09 16:40 | XMS_ITS | Continuity of Care Document ---
Author Organization [facility] Address [address] [place] [id number]- Care Team Providers Care Healthcare Risk Control Consultant Name Role Phone Orville Álvarez MD, Tram Haro Primary Care Physician [phone] Encounter [facility] Date(s): 01/23/23 - 04/03/23 [facility] [address] [place] [id number] Attending Physician: Janina Wood MD Admitting Physician: Janina Wood MD Allergies, Adverse Reactions, Alerts Substance Reaction [...] Physician Member Role: PCP Address: Address: [address] [place] [address]- Care Team Related Persons Name: RADHA RM Address: home [address] [address] Name: PT STATES, NONE
--- OUTSIDE RECORDS SUMMARY | 2024-04-09 16:40 | XMS_ITS | Continuity of Care Document ---
Author Organization [facility] Address [address] [place] [address]- Care Team Providers Care Electronic Service Technician Name Role Phone Orville Álvarez MD, Kaitlin Primary Care Physician Encounter [facility] [place] Date(s): 05/09/23 - 06/08/23 [facility] [address] [place] [id number] Allergies, Adverse Reactions, Alerts Substance Reaction Severity [...] Refills 11, Maintenance, Change every 14 days., 04/14/23 13:14:00 EDT, Supply Start Date: 04/14/23 Status: Ordered Humalog Inj Subcutaneous Infusion, 0 Refills, Maintenance, 08/02/16 10:06:37 Start Date: 08/02/16 Status: Ordered Hydrochlorothiazide By Mouth, Daily, 0 Refills, Maintenance, 08/02/16 10:03:39 Start Date: 08/02/16 Status: Ordered Insulin pen needle 31x 4 Insulin pen needle 31x 4 , See Instructions, # 100 each, Refills 3, Tot. Refills 3, Maintenance, use once daily with tresiba for type 2 DM, 05/09/23 12:36:00 EDT, Supply, 172, cm, 09/16/22 15:54:00 EDT, Height Start Date: 05/09/23 Status: Ordered Januvia 100 mg oral tablet = 100 mg, By Mouth, Daily, # 30 tablet, 0 Refills, Maintenance, 08/02/16 10:04:59, Tablet Start Date: 08/02/16 Status: Ordered Januvia 25 mg oral tablet = 25 mg, By Mouth, Daily, # 30 tablet, 11 Refills, Maintenance, 04/14/23 11:05:00 EDT, Tablet, [facility], Partial fill upon patient request if the prescription is for a schedule II opioid drug., 172, cm, 09/16/22 15:54:00 EDT, Height Start Date: 04/14/23 Stop Date: 04/08/24 Status: Ordered metFORMIN 500 mg oral tablet, extended release 1 tablet = 500 mg, By Mouth, 2 times a day, # 60 tablet, 11 Refills, Maintenance, 04/14/23 11:04:00EDT, ER Tablet, [facility], Partial fill upon patient request if the prescription is for a schedule II opioid drug., 172, cm, 09/16/22... Start Date: 04/14/23 Stop Date: 04/08/24 Status: Ordered QUEtiapine 100 mg oral tablet [...] solution = 40 units, Subcutaneous Infusion, Daily, e11.65, # 15 mL, 5 Refills, Maintenance, 05/09/23 12:36:00 EDT, [facility], Partial fill upon patient request if the prescription is for a schedule II opioid drug., 172, cm, 09/16/22 15:54:00... Start Date: 05/09/23 Status: Ordered Trulicity Pen 1.5 mg/0.5 mL subcutaneous solution 0.5 mL = 1.5 mg, Subcutaneous Injection, Every week, rotate injection sites, # 2 mL, 5 Refills, Maintenance, 05/09/23 12:36:00 EDT, Solution, [facility], Partial fill upon patient request if the prescription is for a schedule II opioi... Start Date: 05/09/23 Status: Ordered Problem List Condition Confirmation Course Effective Dates Status Health St atus Informant Obese class II Confirmed Active Patient Care team information Care Team Personnel Name: Orville Álvarez MD , Tram Haro Position: Reference Physician Member Role: PCP Address: Address: [address] [place] [address]- Care Team Related Persons Name: RM GARCIA Address: home [address] [address] Name: PT STATES, NONE
--- OUTSIDE RECORDS SUMMARY | 2024-04-09 16:40 | XMS_ITS | Continuity of Care Document ---
Author Organization [facility] Diabetes Address [address] [place] [address]- Care Team Providers Care Wood Scrap Handler Name Role Phone Orville Álvarez MD, Kaitlin Primary Care Physician Encounter [facility] [place] Date(s): 10/10/23 - 11/29/23 [facility] [address] [place] [id number] Attending Physician: aJnina Wood MD Admitting Physician: Janina Wood MD [...] 11 Refills, Maintenance, 04/14/23 11:05:00 EDT, Tablet, [facility], Partial fill upon patient request if the prescription is for a schedule II opioid drug., 172, cm, 09/16/22 15:54:00 EDT, Height Start Date: 04/14/23 Stop Date: 04/08/24 Status: Ordered metFORMIN 500 mg oral tablet, extended release 1 tablet = 500 mg, By Mouth, 2 times a day, # 60 tablet, 11 Refills, Maintenance, 04/14/23 11:04:00EDT, ER Tablet, [facility], Partial fill upon patient [...] mL, 5 Refills, Maintenance, 05/09/23 12:36:00 EDT, [facility], Partial fill upon patient request if the prescription is for a schedule II opioid drug., 172, cm, 09/16/22 15:54:00... Start Date: 05/09/23 Status: Ordered Trulicity Pen 1.5 mg/0.5 mL subcutaneous solution 0.5 mL = 1.5 mg, Subcutaneous Injection, Every week, rotate injection sites, # 2 mL, 5 Refills, Maintenance, 05/09/23 12:36:00 EDT, Solution, [facility], Partial fill upon patient request if the prescription is for a schedule II opioi... Start Date: 05/09/23 Status: Ordered Problem List Condition Confirmation Course Effective Dates Status Health St atus Informant Obese class II Confirmed Active Patient Care team information Care Team Personnel Name: Orville Álvarez MD , Tram Haro Position: Reference Physician Member Role: PCP Address: Address: [address] [place] [address]- Care Team Related Persons Name: RADHARM Address: home [address] [address] Name: PT STATES, NONE
--- OUTSIDE RECORDS SUMMARY | 2024-04-09 16:40 | XMS_ITS | Patient Health Record ---
Author Organization [facility] Address [address], [place] [id number] Support Name Relationship Address Phone Carlos Cabrera Guarantor Unknown Unavailable REASON FOR REFERRAL No Information SOCIAL HISTORY Sex Assigned At : Social History Observation Description Sex Assigned At Unknown PLAN OF TREATMENT No Information Insurance Providers Payer Name Payer Address Payer Phone Subscriber Number Group Number Insured Name Patient Relationship to Insured Coverage Start Date Coverage End Date [facility] [address] [facility] [address] [id number] Carlos Cabrera Self - patient is the insured 2 2
--- OUTSIDE RECORDS SUMMARY | 2024-04-09 16:40 | XMS_ITS | Continuity of Care Document ---
Author Organization [facility]inolo gy and Diabetes Address [address] [place] [address]- Care Team Providers Care Patient Service Associate Name Role Phone Tram Royal MD Primary Care Physician Encounter [facility] [place] Date(s): 10/29/23 - 12/25/23 [facility] Diabetes [address] [place] [id number] Attending Physician: Janina Wood MD Admitting Physician: Janina Wood MD Referring Physician: Tram Royal MD Allergies, [...] 10:04:44 Start Date: 08/02/16 Status: Ordered Freestyle tirso 2 reader Freestyle tirso 2 reader, See Instructions, # 1 each, Refills 0, Tot. Refills 0, Maintenance, Used to monitor Bg Dx E11.9, 12/02/23 11:49:00 EDT, patient lost tirso 2 reader, this is a replacement, Supply, 172, cm, 12/02/23 10:47:00 EDT, Height Start Date: 12/02/23 Status: Ordered Freestyle Tirso 2 Solon Freestyle Tirso 2 Solon, See Instructions, # 1 each, Refills 0, Tot. Refills 0, Maintenance, To use to monitor glucose continuously as directed. E11.65, 12/09/23 16:18:00 EDT, Supply, 172, cm, 12/02/23 10:47:00 EDT, Height Start Date: 12/09/23 Status: Ordered Freestyle tirso 2 sensor Freestyle tirso 2 sensor, See Instructions, # 2 each, Refills 11, Tot. Refills 11, Maintenance, Change every 14 days. used to monitor bld glucose levels E11.65, 12/11/23 14:37:00 EDT, Supply, 172, cm, 12/02/23 10:47:00 EDT, Height Start Date: 12/11/23 Status: Ordered Freestyle Lite Lancets See Instructions, # 300 each, Refills 4, Tot. Refills 4, Maintenance, use to test BG 3 times a day e11.9, 12/02/23 11:51:00 EDT, Supply, 172, cm, 12/02/23 10:47:00 EDT, Height Start Date: 12/02/23 Stop Date: 04/30/24 Status: Ordered Freestyle Lite Monitor See Instructions, # 1 each, Refills 0, Tot. Refills 0, Maintenance, use to test BG 3 times a day E11.9, 12/02/23 11:51:00 EDT, Supply, 172, cm, 12/02/23 10:47:00 EDT, Height Start Date: 12/02/23 Stop Date: 01/01/24 Status: Ordered Freestyle Lite Test Strips See Instructions, # 300 each, Refills 4, Tot. Refills 4, Maintenance, use to test BG 3 times a day e11.9, 12/02/23 11:51:00 EDT, Supply, 172, cm, 12/02/23 10:47:00 EDT, Height Start Date: 12/02/23 Stop Date: 04/30/24 Status: Ordered Hydrochlorothiazide By Mouth, Daily, 0 Refills, Maintenance, 08/02/16 10:03:39 Start Date: 08/02/16 Status: Ordered Insulin pen needle 31x 4 Insulin pen needle 31x 4 , See Instructions, # 100 each, Refills 3, Tot. Refills 3, Maintenance, use once daily with tresiba for type 2 DM, 05/09/23 12:36:00 EDT, Supply, 172, cm, 09/16/22 15:54:00 EDT, Height Start Date: 05/09/23 Status: Ordered metFORMIN 500 mg oral tablet, extended release 1 tablet = 500 mg, By Mouth, 2 times a day, # 60 tablet, 11 Refills, Maintenance, 04/14/23 11:04:00EDT, ER Tablet, [facility], Partial fill upon patient request [...] Tresiba FlexTouch 100 units/mL subcutaneous solution = 55 units, Subcutaneous Infusion, Daily, e11.65, # 15 mL, 5 Refills, Maintenance, 05/09/23 12:36:00 EDT, [facility], Partial fill upon patient request if the prescription is for a schedule II opioid drug., 172, cm, 09/16/22 15:54:00... Start Date: 05/09/23 Status: Ordered Trulicity Pen 1.5 mg/0.5 mL subcutaneous solution 0.5 mL = 1.5 mg, Subcutaneous Injection, Every week, rotate injection sites, # 2 mL, 5 Refills, Maintenance, 05/09/23 12:36:00 EDT, Solution, [facility], Partial fill upon patient request if the prescription is for a schedule II opioi... Start Date: 05/09/23 Status: Ordered Problem List Condition Confirmation Course Effective Dates Status Health St atus Informant Obese class I Confirmed Active Patient Care team information Care Team Personnel Name: Orville Álvarez MD , Tram Haro Position: Reference Physician Member Role: PCP Address: Address: [address] [place], [place] - Care Team Related Persons Name: RM GARCIA Address: home [address] [address] Name: STATES, NONE
--- OUTSIDE RECORDS SUMMARY | 2024-04-09 16:40 | XMS_ITS | Continuity of Care Document ---
Author Organization [facility] Endocrinolo gy and Diabetes Address [address] [place] [address]- Care Team Providers Care Director Of Medicare Name Role Phone Orville Álvarez MD, Tram Haro Primary Care Physician En[place] [facility] [place] Date(s): 03/04/23 - 04/03/23 [facility] Endocrinology and Diabetes [address] [place] [id number] Attending Physician: Admtr, Ar8 Admitting [...] a schedule II opioid drug., 172, cm, 03/13/23 15:54... Start Date: 09/16/22 Status: Ordered QUEtiapine [...] atus Informant Obese class II Confirmed Active Laboratory * Event Display: Non BH Lab Results Authored Date: [id number] Patient Care team information Care Team Personnel Name: Orville Álvarez MD , Tram Haro Position: Reference Physician Member Role: PCP Address: Address: [address] [place] [address]- Care Team Related Persons Name: RM GARCIA Address: home [address] [address] Name: PT STATES, NONE
--- OUTSIDE RECORDS SUMMARY | 2024-04-09 16:40 | XMS_ITS | Continuity of Care Document ---
Author Organization [facility] Address [address] [place] [address]- Care Team Providers Care Cement Loader Name Role Phone Orville Álvarez MD, Kaitlin Primary Care Physician [place] [facility] [place]23 - 06/14/23 [facility] [address] [place] [id number] Attending Physician: Admtr, Ar8 [...] Maintenance, 04/14/23 11:05:00 EDT, Tablet, [facility], Partial fill upon patient request if the prescription is for a schedule II opioid drug., 172, cm, 09/16/22 15:54:00 EDT, Height Start Date: 04/14/23 Stop Date: 04/08/24 Status: Ordered metFORMIN 500 mg oral tablet, extended release 1 tablet = 500 mg, By Mouth, 2 times a day, # 60 tablet, 11 Refills, Maintenance, 04/14/23 11:04:00EDT, ER Tablet, [facility], Partial fill upon patient [...] Refills, Maintenance, 05/09/23 12:36:00 EDT, [facility], Partial fill upon patient request if the prescription is for a schedule II opioid drug., 172, cm, 09/16/22 15:54:00... Start Date: 05/09/23 Status: Ordered Trulicity Pen 1.5 mg/0.5 mL subcutaneous solution 0.5 mL = 1.5 mg, Subcutaneous Injection, Every week, rotate injection sites, # 2 mL, 5 Refills, Maintenance, 05/09/23 12:36:00 EDT, Solution, [facility], Partial fill upon patient request if the prescription is for a schedule II opioi... Start Date: 05/09/23 Status: Ordered Problem List Condition Confirmation Course Effective Dates Status Health St atus Informant Obese class II Confirmed Active Laboratory * Event Display: Non BH Lab Results Authored Date: Patient Care team information Care Team Personnel Name: Orville Álvarez MD , Tram Haro Position: Reference Physician Member Role: PCP Address: Address: [address] [place] [address]- Care Team Related Persons Name: RM GARCIA Address: home [address] [address] Name: PT STATES, NONE
--- NOTE | 2024-04-09 16:52 | ED.GENADULT ---
HPI - General Adult General Chief complaint: General Medical Stated complaint: FEET SWELLING Time Seen by Provider: 04/09/24 16:30 Source: patient Mode of arrival: ambulatory Limitations: no limitations History of Present Illness ED Provider: kevon KINNEY narrative: 68 yo male with PMH of HLD, GERD, DM, elevated triglycerides, chronic back pain, with history of CKD now GFR is more than 60 and creatinine 1.01 was seen here on 03/31 for 3 weeks of leg swelling patient's discharge without any diuretics patient been followed by PCP who prescribed furosemide 04/06, patient has had venous Doppler done on 03/31 was negative patient is taking amlodipine for a while. No shortness a breath no abdominal swelling patient gets increased swelling in the evening then morning does have chronic back pain in disabled ambulates with walker and help mostly stays in the bed no liver disease Related Data Home Medications ?Medication ?Instructions ?Recorded ?Confirmed latanoprost 0.005 % eye drops 1 drp ophthalmic (eye) BEDTIME 11/07/20 12/18/23 dulaglutide 1.5 mg/0.5 mL 1.5 mg subcut MO 09/18/23 12/18/23 subcutaneous pen injector (Trulicity) insulin aspart U-100 100 unit/mL 1 sliding scale dose subcut TIDAC 09/18/23 12/18/23 (3 mL) subcutaneous pen Previous Rx's ?Medication ?Instructions ?Recorded walker #1 ea 01/12/21 blood pressure monitor #1 ea 05/08/22 chair lift #1 ea 09/11/22 walker (Ultra-Light Rollator misc) #1 ea 03/14/23 bed rail #1 ea 04/22/23 leg granite polisher machine #1 ea 04/22/23 sock aid #1 ea 04/22/23 flash glucose scanning reader #1 ea 04/25/23 (FreeStyle Tirso 14 Day Coram) insulin degludec 200 unit/mL (3 55 unit (0.275 mL) subcut BEDTIME 05/07/23 mL) subcutaneous pen (Tresiba 90 days #24.75 mL FlexTouch U-200 insulin) Shower Chair #1 ea 05/13/23 Brace,wrist #1 ea 06/02/23 flash glucose sensor (FreeStyle #2 ea 09/13/23 Tirso 2 Sensor kit) omeprazole 40 mg capsule,delayed 40 mg PO DAILY #30 caps 09/18/23 release sucralfate 1 gram tablet 1 g PO BID #60 tabs 09/18/23 amlodipine 5 mg tablet 5 mg PO DAILY 90 days #90 tabs 12/18/23 atorvastatin 20 mg tablet 20 mg PO DAILY 30 days #30 tabs 01/30/24 icosapent ethyl 1 gram capsule 2 g (2 x 1 gram) PO BID 30 days 01/30/24 (Vascepa) #120 caps pen needle, diabetic 31 gauge x #200 ea 01/30/2411/19 cholecalciferol (vitamin D3) 50 50 mcg PO DAILY #90 tabs 03/14/24 mcg (2,000 unit) tablet aspirin 81 mg tablet,delayed 81 mg PO DAILY 90 days #90 tabs 03/23/24 release benazepril 40 mg tablet 40 mg PO DAILY #30 tabs 03/23/24 celecoxib 200 mg capsule 200 mg PO BID 30 days #60 caps 03/23/24 cyclobenzaprine 10 mg tablet 10 mg PO BEDTIME muscle spasm 10 03/23/24 days #10 tabs fenofibrate nanocrystallized 145 145 mg PO DAILY 90 days #90 tabs 03/23/24 mg tablet hydralazine 25 mg tablet 25 mg PO TID 90 days #270 tabs 03/23/24 metformin 500 mg tablet,extended 500 mg PO BID 90 days #180 tabs 03/23/24 release 24 hr oxycodone 10 mg tablet 10 mg PO Q6H PRN pain 30 days #120 03/23/24 tabs sitagliptin phosphate 25 mg tablet 25 mg PO DAILY 90 days #90 tabs 03/23/24 (Januvia) furosemide 20 mg tablet 20 mg PO DAILY 90 days #90 tabs 04/06/24 compr.stocking,knee,long,x-lrg #12 ea 04/07/24 Allergies Allergy/AdvReac Type Severity Reaction Status Date / Time Penicillins [PENICILLINS] Allergy Severe RASH Verified 04/09/24 16:19 jay pepper Allergy Intermediate Rash Verified 04/09/24 16:19 pepper (genus Capsicum) AdvReac Intermediate rashes Verified 04/09/24 16:19 Review of Systems Review of Systems: Yes all other systems are reviewed and are negative PMFSH Past Medical History Medical History Acute cholecystitis due to biliary calculus Diabetes mellitus Essential hypertension Numbness and tingling in right hand Numbness and tingling in left hand Knee osteoarthritis Mild recurrent major depression Mixed hyperlipidemia Right shoulder pain Right knee pain Left knee pain CKD (chronic kidney disease), stage III Low back pain Multiple falls Syncope DAVINA (acute kidney injury) Obesity due to excess calories Lumbar spondylosis Proteinuria Arthritis Hypertriglyceridemia Hypertension Diabetic polyneuropathy associated with type 2 diabetes mellitus Type 2 diabetes mellitus with other diabetic kidney complication Lumbar stenosis Surgical History History of cholecystectomy (~09/19/23) History of surgery on lower extremity History of total left knee replacement (TKR) S/P evacuation of hematoma Hx of cataract surgery History of lumbar surgery Hx of eye surgery History of back surgery Family History Family History Father Medical history unknown Mother No problems noted. Maternal Grandmother Medical history unknown Social History Social History Household Members: None Household Members Other:: self Housing: Apartment Are you a primary manager care to a significant other at home: No Do you presently have visiting nurse or other home services: Yes Alcohol intake: never Comment: final count is correct Patient Tobacco Use Status: Former Tobacco user Tobacco use type: Cigarette Years Smoked: 25 Smoked in Last 30 Days: No e-Cigarette/Vaping Use: Never Used Second Hand Smoke Exposure: No Use of substances other than those prescribed or required for medical reasons: No Advance Directives: Yes Advance Directives on File: Yes Advance Directives Date on File: 05/12/23 service: No Current occupational status: disabled Cognitive needs: Yes (walker) Hearing needs: No Vision needs: Yes (reading glasses) Physical Exam ED Vital Signs: Vital Signs - 24 hr 04/09/24 16:17 Temperature 98.2 F Pulse Rate 74 Respiratory Rate 16 Blood Pressure 162/88 H Pulse Oximetry 96 Oxygen Delivery Method Room Air BMI result Body Mass Index 38.0 Appearance: Alert. Oriented X3. No acute distress. Eyes: PERRLA, No Nystagmus ENT: Pharynx normal. Oral Mucosa moist Neck: Normal inspection. Neck supple. CVS: Normal heart rate and rhythm. Pulses normal. Respiratory: No respiratory distress. Equal air entry bilateral, no wheezing/rales/rhonchi Abdomen: Soft and nontender. Bowel sounds are present, no mass palpable, no CVA tenderness Skin: Skin warm and dry. Normal skin color. Normal skin turgor. Extremities: 4++ lower extremity edema. No calf tenderness Neuro: Oriented X 3. No motor deficit. No sensory deficit.No cerebellar signs , cranial nerves II-XII intact Medications Administered Discontinued Medications Generic Name Dose Route Start Last Admin Trade Name Braulio PRN Reason Stop Dose Admin Furosemide 40 mg 04/09/24 17:25 04/09/24 17:57 Furosemide 40 Mg Tablet PO 04/09/24 17:26 40 mg ONCE ONE Administration Protocol Medical Decision Making Medical Decision Making MDM Narrative: Patient with dependent leg edema with workup last week normal including BNP and liver not on furosemide 20 mg daily since 04/06 no shortness a breath vitals are stable saturating 96% will increase the dose of furosemide to 40 mg daily advised to increase activity ambulate and case with leg elevated Discharge Plan Discharge Clinical Impression: Leg edema Patient Disposition: Home, Self-Care Instructions: Leg Edema (ED) Additional Instructions: Keep your legs elevated Increase the dose of your furosemide to 40 mg daily Follow with your PCP Prescriptions: No Action (DME) walker Misc See Rx Instructions .ROUTE .MEDSUPPLY Qty: 1 0RF Rx Instructions: As directed (DME) Ultra-Light [facility]ator [facility] See Rx Instructions .ROUTE .MEDSUPPLY Qty: 1 0RF Rx Instructions: with seat (DME) sock aid See Rx Instructions .Route .MEDSUPPLY Qty: 1 0RF Rx Instructions: As directed (DME) leg granite polisher machine See Rx Instructions .Route .MEDSUPPLY Qty: 1 0RF Rx Instructions: As directed (DME) bed rail See Rx Instructions .Route .MEDSUPPLY Qty: 1 0RF Rx Instructions: As directed (DME) FreeStyle Tirso 14 Day Coram Misc See Rx Instructions .ROUTE .MEDSUPPLY Qty: 1 0RF Rx Instructions: As directed Tresiba FlexTouch U-200 200 unit/mL (3 mL) insulin pen 55 unit subcut BEDTIME 90 Days Qty: 24.75 4RF Rx Instructions: took 25 units sc 04/14/23 pm (DME) Shower Chair Misc See Rx Instructions .Route Qty: 1 0RF Rx Instructions: As directed (DME) Brace,wrist Misc See Rx Instructions .Route Qty: 1 0RF Rx Instructions: right hand wrist splint (DME) FreeStyle Tirso 2 Sensor Kit See Rx Instructions .Route Qty: 2 11RF Rx Instructions: As directed atorvastatin 20 mg tablet 20 mg PO DAILY 30 Days Qty: 30 4RF (DME) pen needle, diabetic 31 gauge x 5/16 needle See Rx Instructions subcut .MEDSUPPLY Qty: 200 4RF Rx Instructions: five times a day icosapent ethyl [Vascepa] 1 gram capsule 2 g PO BID 30 Days Qty: 120 4RF cholecalciferol (vitamin D3) 50 mcg (2,000 unit) tablet 50 mcg PO DAILY Qty: 90 0RF oxycodone 10 mg tablet 10 mg PO Q6H PRN (Reason: pain) 30 Days Qty: 120 0RF Rx Instructions: Partial Fill upon patient request. hydralazine 25 mg tablet 25 mg PO TID 90 Days Qty: 270 5RF Januvia 25 mg tablet 25 mg PO DAILY 90 Days Qty: 90 5RF benazepril 40 mg tablet 40 mg PO DAILY Qty: 30 1RF aspirin 81 mg tablet,delayed release (DR/EC) 81 mg PO DAILY 90 Days Qty: 90 5RF metformin 500 mg tablet extended release 24 hr 500 mg PO BID 90 Days Qty: 180 5RF celecoxib 200 mg capsule 200 mg PO BID 30 Days Qty: 60 1RF fenofibrate nanocrystallized 145 mg tablet 145 mg PO DAILY 90 Days Qty: 90 5RF cyclobenzaprine 10 mg tablet 10 mg PO BEDTIME 10 Days Qty: 10 5RF furosemide 20 mg tablet 20 mg PO DAILY 90 Days Qty: 90 0RF (DME) compr.stocking,knee,long,x-lrg Misc See Rx Instructions .Route Qty: 12 0RF Rx Instructions: As directed latanoprost 0.005 % drops 1 drp ophthalmic (eye) BEDTIME Rx Instructions: 1 drop into both eyes omeprazole 40 mg capsule,delayed release(DR/EC) 40 mg PO DAILY Qty: 30 0RF sucralfate 1 gram tablet 1 g PO BID Qty: 60 0RF Trulicity 1.5 mg/0.5 mL pen injector 1.5 mg subcut MO insulin aspart U-100 100 unit/mL (3 mL) Insulin Pen 1 sliding scale dose subcut TIDAC Protocol: Insulin Correction Scale Less than or equal to 110 ---- Give (units): 0 111 to 150 Give (units): 0 151 to 200 Give (units): 2 201 to 250 Give (units): 4 251 to 300 Give (units): 6 301 to 350 Give (units): 8 Greater than 350 Give (units): 10 Call MD if Blood Glucose > : 350 (DME) blood pressure monitor Kit See Rx Instructions .Route Qty: 1 0RF Rx Instructions: As directed (DME) chair lift See Rx Instructions .Route .MEDSUPPLY Qty: 1 0RF Rx Instructions: As directed amlodipine 5 mg tablet 5 mg PO DAILY 90 Days Qty: 90 1RF Interventions: ED Discharge Assessment Last Done: 04/09/24 19:56 Discharge Date/Time: 04/09/24 19:57 Print Language: Puerto Rican
[2024-04-09 17:57] VITALS: BP 171/85
[2024-04-09] MEDS: Furosemide 40 MG TABLET PO (17:57)
[2024-04-09 19:56] VITALS: BP 171/85; PULSE 78; RESP 18; TEMP 36
== END 2024-04-09 19:57 | disposition home or self-care (01) ==
PROVIDERS: Emergency Provider Internal Medicine
DX: R60.0 Localized edema (principal); E11.22 Type 2 diabetes mellitus with diabetic chronic kidney disease; I12.9 Hypertensive chronic kidney disease with stage 1 through stage 4 chronic kidney disease, or unspecified chronic kidney disease; N18.30 Chronic kidney disease, stage 3 unspecified; E78.2 Mixed hyperlipidemia; Z87.891 Personal history of nicotine dependence; Z79.4 Long term (current) use of insulin; Z79.85 Long-term (current) use of injectable non-insulin antidiabetic drugs; Z79.84 Long term (current) use of oral hypoglycemic drugs; Z79.02 Long term (current) use of antithrombotics/antiplatelets; Z79.899 Other long term (current) drug therapy
CPT/HCPCS: 99283; 99284

== ENCOUNTER 2024-04-15 09:05 | Outpatient (REF) | payer OTHER, SELFPAY ==
[2024-04-15 10:37] LABS: Anion Gap 11 (12-20); Blood Urea Nitrogen 17 mg/dL (9-16); Calcium 9.7 mg/dL (8.4-10.2); Carbon Dioxide 30 mmol/L (22-29); Chloride 105 mmol/L (96-108); Estimated Glomerular Filt Rate > 60; Potassium 4.3 mmol/L (3.3-5.1); Sodium 142 mmol/L (135-145)
[2024-04-15 10:58] LABS: Appearance Urine Clear; Color Urine Yellow; Glucose Urine UA Negative (Negative); Leukocyte Esterase Urine Negative (Negative); Nitrite Urine Negative (Negative); PH 5.5 (5.0-9.0); Specific Gravity - Urine <= 1.005 (1.005-1.025); Urine Blood Negative (Negative); Urine Ketones Negative (Negative); Urine Protein Trace mg/dL (Neg-Trace)
[2024-04-15 11:07] LABS: Creatinine Urine 17.25 mg/dL; Microalbum/Creatinine Ratio Ur 857.9 ug/mg cr (<30)
[2024-04-15 11:11] LABS: Creatinine Urine 16.28 mg/dL; Total Protein Urine Random 22 mg/dL (<12)
== END 2024-04-15 09:06 | disposition home or self-care (01) ==
LOC: HO.LAB 09:05
PROVIDERS: Absent Provider Internal Medicine Hypertension Specialist; PCP Internal Medicine; Visit Provider Internal Medicine
DX: I12.9 Hypertensive chronic kidney disease with stage 1 through stage 4 chronic kidney disease, or unspecified chronic kidney disease (principal); E11.22 Type 2 diabetes mellitus with diabetic chronic kidney disease; N18.2 Chronic kidney disease, stage 2 (mild); I89.0 Lymphedema, not elsewhere classified; E78.5 Hyperlipidemia, unspecified; E11.42 Type 2 diabetes mellitus with diabetic polyneuropathy; Z79.4 Long term (current) use of insulin; F33.0 Major depressive disorder, recurrent, mild; M48.062 Spinal stenosis, lumbar region with neurogenic claudication; Z76.89 Persons encountering health services in other specified circumstances; Z23 Encounter for immunization
CPT/HCPCS: 36415; 80051; 81003; 82043; 82310; 82565; 82570; 83036; 84156; 84520; 90471; 90656; 99212

== ENCOUNTER 2024-04-15 11:48 | Outpatient (AMB) | payer OTHER, SELFPAY ==
--- NOTE | 2024-04-15 12:03 | A.OFFPC_ITS ---
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 Accompanied by: Self / Same As Patient Allergies Penicillins [PENICILLINS] Allergy (Severe, Verified 04/15/24 12:16) RASH jay pepper Allergy (Intermediate, Verified 04/15/24 12:16) Rash pepper (genus Capsicum) Adverse Reaction (Intermediate, Verified 04/15/24 12:16) rashes Medication List - Last Reconciled 04/15/24 by Tram Álvarez MD [adult diapers pull-ups As directed] amlodipine 5 mg PO DAILY 90 days aspirin 81 mg PO DAILY 90 days atorvastatin 20 mg PO DAILY 30 days [bed rail As directed] benazepril 40 mg PO DAILY blood pressure monitor As directed Brace,wrist right hand wrist splint celecoxib 200 mg PO BID 30 days [chair lift As directed] cholecalciferol (vitamin D3) 50 mcg PO DAILY commode (bedside commode) As directed compr.stocking,knee,long,x-lrg As directed cyclobenzaprine 10 mg PO BEDTIME 10 days dulaglutide (Trulicity) 1.5 mg subcut MO fenofibrate nanocrystallized 145 mg PO DAILY 90 days flash glucose scanning reader (2[place]Style Tirso 14 Day [place]) As directed flash glucose sensor (FreeStyle Tirso 2 Sensor kit) As directed furosemide 20 mg PO DAILY 90 days hydralazine 25 mg PO TID 90 days icosapent ethyl (Vascepa) 2 grams (2 x 1 gram) PO BID 30 days insulin aspart U-100 1 sliding scale dose See Protocol subcut TIDAC insulin degludec (Tresiba FlexTouch U-200 insulin) 55 units (0.275 mL) subcut BEDTIME 90 days latanoprost 0.005% 1 drp ophthalmic (eye) BEDTIME [leg chauffeur airport limousine As directed] metformin ER 500 mg PO BID 90 days omeprazole 40 mg PO DAILY oxycodone 10 mg PO Q6H PRN 30 days pen needle, diabetic five times a day Shower Chair As directed sitagliptin phosphate (Januvia) 25 mg PO DAILY 90 days [sock aid As directed] sucralfate 1 g PO BID walker As directed walker (Ultra-Light Rollator misc) with seat [wheelchair As directed] [wipes As directed] Tobacco use date assessed: 08/11/23 Fall risk assessment: 2 + Falls in past year Last assessed Fall Risk: 04/15/24 Dental Screening Dental Screen Date: 08/11/23 HPI HPI Comments History of Present Illness Details This is a 68-year-old male with diabetes mellitus type 2, hypertension, hyperlipidemia and mild recurrent major depression as well as lumbar spine stenosis that comes today complaining of multiple falls due to bilateral leg weakness. He will benefit from a hospital bed and an electric wheelchair. He has 3/5 strength in right arm and 4/5 strength in left arm. Had a right hand surgery and since then has noticed right hand weakness. A1c slightly elevated today and was advised to do strict diet. Blood pressure borderline normal to elevated today. Will be rechecking next office visit. Lipid panel will be order and his LDL goal should be less than 70. Depression has been in r emission. He is having more lumbar pain and is on oxycodone which I advised not to use more than prescribed. At the moment he is in a borrowed electric wheelchair to be able to move. He is in desperate need of an electric wheelchair and a hospital bed to avoid multiple falls. Has gone to ER multiple times due to this matter in which last 1 was 04/09/2024. His diabetes is follow by [facility] endocrinology. He also complains of bilateral lymphedema in lower limbs and I discontinue amlodipine because it can cause leg swelling. I will also refer him to vascular surgery. Complains of low back pain that radiates to both legs and is associated with bilateral leg numbness and tingling as as weakness that has been more prominent this past few months. [facility] Medical History Acute cholecystitis due to biliary calculus Diabetes mellitus Essential hypertension Numbness and tingling in right hand Numbness and tingling in left hand Knee osteoarthritis Mild recurrent major depression Mixed hyperlipidemia Right shoulder pain Right knee pain Left knee pain CKD (chronic kidney disease), stage III Low back pain Multiple falls Syncope DAVINA (acute kidney injury) Obesity due to excess calories Lumbar spondylosis Proteinuria Arthritis Hypertriglyceridemia Hypertension Diabetic polyneuropathy associated with type 2 diabetes mellitus Type 2 diabetes mellitus with other diabetic kidney complication Lumbar stenosis Surgical History History of cholecystectomy (~09/19/23) History of surgery on lower extremity History of total left knee replacement (TKR) S/P evacuation of hematoma Hx of cataract surgery History of lumbar surgery Hx of eye surgery History of back surgery Family History Father Medical history unknown Mother No problems noted. Maternal Grandmother Medical history unknown Social History Household Members: None Household Members Other:: self Housing: Apartment Are you a primary skin care consultant to a significant other at home: No Do you presently have visiting nurse or other home services: Yes Alcohol intake: never Comment: final count is correct Patient Tobacco Use Status: Former Tobacco user Tobacco use type: Cigarette Years Smoked: 25 e-Cigarette/Vaping Use: Never Used Second Hand Smoke Exposure: No Advance Directives Date on File: 05/12/23 service: No Current occupational status: disabled Cognitive needs: Yes (walker) Hearing needs: No Vision needs: Yes (reading glasses) Questionnaire Thrive Questionnaire Date Thrive assessed: 09/19/23 Are you currently unemployed and looking for a job?: No CHANDU-7 AMB Questionnaire CHANDU-7 Date CHANDU - 7 assessed: 08/11/23 Source: Developed by Drs. Jorge Hopson, Stacey Meza, Mario Garcia and colleagues, with an educational ahsan from [employer]. Review of Systems Const All systems reviewed & are unremarkable except as noted in HPI and below Card Denies chest pain at rest, Denies chest pain with activity, Denies edema, Denies irregular heart rhythm, Denies claudication, Denies dyspnea, Denies dyspnea on exertion, Denies orthopnea, Denies paroxysmal nocturnal dyspnea and Denies slow heart rate Resp Denies cough, Denies dyspnea and Denies dyspnea on exertion Musc Reports back pain, Reports arthralgias, Reports limited range of motion and Reports muscle weakness Physical exam (Primary Care) Vital Signs: Last Vital Signs BP 144/90 H 04/15/24 12:04 Tobacco/Smoking Status: Tobacco use Status Tobacco use date assessed 08/11/23 04/15/24 12:03 Patient Tobacco Use Status Former Tobacco user 04/15/24 12:03 Tobacco use type Cigarette 04/15/24 12:03 e-Cigarette/Vaping Use Never Used 04/15/24 12:03 Thrive Assessment: Date of Thrive Assessment Date Thrive assessed 09/19/23 04/15/24 12:03 Const Limitations: wheelchair (electric) Resp Effort & Inspection: normal respiratory effort Auscultation: clear to auscultation bilaterally Cardio Jugular venous distension: no JVD Rate: regular rate Rhythm: regular rhythm Heart sounds: S1 normal heart sound present and S2 normal heart sound present Back/Spine/Pelvis Thoracic/Lumbar Spine: lumbar spinal tenderness Neuro Gait exam (Neuro): Assisted gait required Gait assisted method: mobile scooter Motor exam (neuro): Abnormal motor strength present (3/5 right upper and lower limbs bilateral, 4/5 left upper limb) Office Procedures Flu Questionnaire Does the patient have a severe egg allergy?: No Does the patient have severe life threatening allergies?: No Does the patient have a fever or illness today?: No Has the patient ever had Guillain-[place] Syndrome?: No Has the patient ever had any past reaction to a flu shot?: No Results AMB Hemoglobin A1c AMB Hemoglobin A1c 7.5 % Last Edit by CARLOS A Braswell on 04/15/24 12:4 1 Immunizations Fluarix Triv [id number] (PF) 45 mcg (15 mcg x 3)/0.5 mL IM syringe Performing Provider: Tram Álvarez MD [facility] [place] [facility] Administered by: CARLOS A Braswell on 04/15/24 12:40 Dose Route Admin Location Dispensed Lot Number Expiration Date NDC Product Safety Officer 0.5 mL IM Right Deltoid 0.5 mL [id number] 01/03/25 [id number] [employer] VIS Given Date VIS Provided VIS Publication Date 04/15/24 Single Vaccine 21 Eligibility Eligibility Date Funding Source Not [facility] Eligible 04/15/24 Private Results Reviewed Results Reviewed: Laboratory Last Values Hgb A1c (Clinic) 7.5 % (4.0-6.0) H 04/15/24 12:22 Coding Level of Care Code Est Pt Level 4 (50769) Complex EM visit Add On G2211 Diagnoses Lymphedema I89.0 Hyperlipidemia LDL goal <70 E78.5 Type 2 diabetes mellitus with diabetic polyneuropathy, with long-term current use of insulin E11.42; Z79.4 Diabetes mellitus type: type 2 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 Discontinue amlodipine. (2) Hyperlipidemia LDL goal <70: Code(s): E78.5 - Hyperlipidemia, unspecified Category: Medical Plan: Continue statins. Repeat lipid panel. LDL goal is less than 70. (3) Diabetes mellitus: Code(s): E11.9 - Type 2 diabetes mellitus without complications Category: Medical Qualifiers: Diabetes mellitus type: type 2 Diabetes mellitus care home insulin use: with care home use Diabetes mellitus complication status: with neurologic complications Diabetes mellitus complication detail: with polyneuropathy Qualified Code(s): E11.42 - Type 2 diabetes mellitus with diabetic polyneuropathy; Z79.4 - bed bug exterminator (current) use of insulin Plan: Continue insulin. A1c goal is equal or less than 7%. Follow-up with [facility] endocrinology. (4) Essential hypertension: Code(s): I10 - Essential (primary) hypertension Category: Medical Plan: Continue hydralazine and benazepril. Blood pressure goal is equal or less than 130/80. Recheck blood pressure in the next office visit which is a month away. Discontinue amlodipine. (5) Mild recurrent major depression: Code(s): F33.0 - Major depressive disorder, recurrent, mild Category: Medical Plan: In remission. (6) Lumbar stenosis: Code(s): M48.061 - Spinal stenosis, lumbar region without neurogenic claudication Category: Medical Qualifiers: Neurogenic claudication status: with neurogenic claudication Qualified Code(s): M48.062 - Spinal stenosis, lumbar region with neurogenic claudication Plan: Hospital bed an electric wheelchair prescribe due to abnormal gait. MRI lumbar spine ordered. Orders: Orders Influenza [id number] Immunization Today Z23 - Encounter for immunization AMB Hemoglobin A1c Today E11.42 - Type 2 diabetes mellitus with diabetic polyneuropathy, Z79.4 - bed bug exterminator (current) use of insulin Referrals Physical Medicine and Rehabilitation Referral Z76.89 - Persons encountering health services in other specified circumstances Vascular Surgery Referral I89.0 - Lymphedema, not elsewhere classified Medications: New hospital bed As directed 1 ea 0RF M48.062 - Spinal stenosis, lumbar region with neurogenic claudication, R29.6 - Repeated falls, R29.898 - Other symptoms and signs involving the musculoskeletal system Refilled hydralazine 25 mg PO TID 90 days 270 tabs 5RF [wheelchair electric] As directed 1 ea 0RF E11.42 - Type 2 diabetes mellitus with diabetic polyneuropathy, M17.10 - Unilateral primary osteoarthritis, unspec ified knee, M48.062 - Spinal stenosis, lumbar region with neurogenic claudication, R29.6 - Repeated falls Discontinued amlodipine Discontinued Reason: Patient Completed Course 5 mg PO DAILY 90 days 90 tabs 1RF I10 - Essential (primary) hypertension
[2024-04-15 12:04] VITALS: BP 144/90
== END 2024-04-15 12:42 | disposition home or self-care (01) ==
PROVIDERS: Visit Provider Internal Medicine
DX: E11.42 Type 2 diabetes mellitus with diabetic polyneuropathy (principal); Z79.4 Long term (current) use of insulin; F33.0 Major depressive disorder, recurrent, mild; I89.0 Lymphedema, not elsewhere classified; E78.5 Hyperlipidemia, unspecified; I10 Essential (primary) hypertension; M48.062 Spinal stenosis, lumbar region with neurogenic claudication

== ENCOUNTER 2024-04-16 09:53 | Outpatient (AMB) | payer OTHER, SELFPAY ==
--- NOTE | 2024-04-16 09:52 | HO.NEPHOV ---
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 He is here for annual follow-up for CKD. He has had left knee surgery and currently has braces. He has been taking Celebrex 200 mg twice a day in addition to benazepril. Patient serum creatinine has been around 0.86. Recent creatinine was 1.12. He has no specific complaints today. No polyuria no polydipsia. 04/16/2024. Today was a tele health visit. He was seen by PCP yesterday. Has been referred to vascular surgery. Amlodipine has been discontinued. [facility] Medical History Acute cholecystitis due to biliary calculus Diabetes mellitus Essential hypertension Numbness and tingling in right hand Numbness and tingling in left hand Knee osteoarthritis Mild recurrent major depression Mixed hyperlipidemia Right shoulder pain Right knee pain Left knee pain CKD (chronic kidney disease), stage III Low back pain Multiple falls Syncope DAVINA (acute kidney injury) Obesity due to excess calories Lumbar spondylosis Proteinuria Arthritis Hypertriglyceridemia Hypertension Diabetic polyneuropathy associated with type 2 diabetes mellitus Type 2 diabetes mellitus with other diabetic kidney complication Lumbar stenosis Surgical History History of cholecystectomy (~09/19/23) History of surgery on lower extremity History of total left knee replacement (TKR) S/P evacuation of hematoma Hx of cataract surgery History of lumbar surgery Hx of eye surgery History of back surgery Family History Father Medical history unknown Mother No problems noted. Maternal Grandmother Medical history unknown Social History Household Members: None Household Members Other:: self Housing: Apartment Are you a primary customer care associate to a significant other at home: No Do you presently have visiting nurse or other home services: Yes Alcohol intake: never Comment: final count is correct Patient Tobacco Use Status: Former Tobacco user Tobacco use type: Cigarette Years Smoked: 25 e-Cigarette/Vaping Use: Never Used Second Hand Smoke Exposure: No Advance Directives Date on File: 05/12/23 service: No Current occupational status: disabled Cognitive needs: Yes (walker) Hearing needs: No Vision needs: Yes (reading glasses) Telehealth Telehealth Telehealth Platform: Telephone Location of patient: address on file Telehealth method: voice only Patient verbally consented to treatment: Yes Results Reviewed Nephrology Results: Hgb 14.3 g/dl (14.0-18.0) 03/31/24 WBC 9.5 X10*3/uL (4.8-10.8) 03/31/24 Plt Count 201 X10*3/uL (160-400) 03/31/24 Sodium 142 mmol/L (135-145) 04/15/24 Potassium 4.3 mmol/L (3.3-5.1) 04/15/24 Chloride 105 mmol/L (96-108) 04/15/24 Carbon Dioxide 30 mmol/L (22-29) H 04/15/24 BUN 17 mg/dL (9-16) H 04/15/24 Creatinine 1.06 mg/dL (0.5-1.4) 04/15/24 Calcium 9.7 mg/dL (8.4-10.2) 04/15/24 Urine Protein Trace mg/dL (Neg-Trace) 04/15/24 Urine Creatinine 16.28 mg/dL 04/15/24 Assessment & Plan Assessment & Plan (1) Lymphedema: Code(s): I89.0 - Lymphedema, not elsewhere classified Category: Medical Plan: Referred to vascular surgery. Discontinue amlodipine. (2) Hyperlipidemia LDL goal <70: Code(s): E78.5 - Hyperlipidemia, unspecified Category: Medical Plan: Continue statins. Repeat lipid panel. LDL goal is less than 70. 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 A1c goal is equal or less than 7%. Follow-up with [facility] endocrinology. (4) Essential hypertension: Code(s): I10 - Essential (primary) hypertension Category: Medical Plan: Continue hydralazine and benazepril. Blood pressure goal is equal or less than 130/80. (5) Mild recurrent major depression: Code(s): F33.0 - Major depressive disorder, recurrent, mild Category: Medical Plan: In remission. (6) Lumbar stenosis: Code(s): M48.061 - Spinal stenosis, lumbar region without neurogenic claudication Category: Medical Qualifiers: Neurogenic claudication status: with neurogenic claudication Qualified Code(s): M48.062 - Spinal stenosis, lumbar region with neurogenic claudication Plan . From renal standpoint he is doing very well. Creatinine is 1.06. I have suggest to avoid NSAIDs /Warner 2 inhibitors. Continue to avoid other nephrotoxic agents. Concur with other medical management and we will follow as needed. . Coding Level of Care Code Tele New Pt Level 3 (17660) Diagnoses Lymphedema I89.0 Hyperlipidemia LDL goal <70 E78.5 Type 2 diabetes mellitus with diabetic polyneuropathy, with long-term current use of insulin E11.42; Z79.4 Diabetes mellitus type: type 2 Diabetes mellitus half-way insulin use: with half-way use Diabetes mellitus complication status: with neurologic complications Diabetes mellitus complication detail: with polyneuropathy Essential hypertension I10 Mild recurrent major depression F33.0 Spinal stenosis of lumbar region with neurogenic claudication M48.062 Neurogenic claudication status: with neurogenic claudication Time Spent (min) 10
== END 2024-04-16 14:55 | disposition home or self-care (01) ==
PROVIDERS: PCP Internal Medicine; Visit Provider Internal Medicine Hypertension Specialist
DX: I89.0 Lymphedema, not elsewhere classified (principal); E78.5 Hyperlipidemia, unspecified; E11.42 Type 2 diabetes mellitus with diabetic polyneuropathy; Z79.4 Long term (current) use of insulin; I10 Essential (primary) hypertension; F33.0 Major depressive disorder, recurrent, mild; M48.062 Spinal stenosis, lumbar region with neurogenic claudication
CPT/HCPCS: 99441

== ENCOUNTER → 2024-04-16 09:53 | Outpatient (BNVA) | payer OTHER, SELFPAY | PROVIDERS: PCP Internal Medicine; Visit Provider Internal Medicine Hypertension Specialist ==

== ENCOUNTER 2024-05-02 09:23 | Inpatient (IN) | payer OTHER, SELFPAY ==
[2024-05-02] VITALS (7 sets, daily range): BP systolic 105–183; BP diastolic 58–100; PULSE 75–89; RESP 16–17; TEMP 36.4–37.1; O2SAT 95–99; BMI 36.7
--- NOTE | ~2024-05-02 | XR_ITS ---
EXAMINATION: XR CHEST CLINICAL INFORMATION: Cough COMPARISON: Chest radiograph from 08/10/2023 TECHNIQUE: 2 views of the chest were obtained. FINDINGS: Bilateral low lung volumes. Stable interstitial prominence. Left basilar radiopacity potentially representing atelectasis. No pneumothorax. Trachea is midline. Cardiac mediastinal silhouette is stable. Degenerative changes of the thoracolumbar spine. Curvilinear radiopaque catheter like density projects over the mid to distal portion of the right clavicle into the supraclavicular region of unclear etiology, correlation with physical exam. XR/XR chest 2V IMPRESSION: 1. Bilateral low lung volumes. 2. Stable interstitial prominence. 3. Left basilar radiopacity potentially representing atelectasis. 4. Curvilinear radiopaque catheter like density projects over the mid to distal portion of the right clavicle into the supraclavicular region of unclear etiology, correlation with physical exam. Electronically signed by: Reece Eugene MD 05/02/2024 12:01 PM EDT
--- NOTE | ~2024-05-02 | US_ITS ---
EXAMINATION: US TRIPLEX LOWER EXTREMITY, BILATERAL CLINICAL INFORMATION: Lower extremity swelling. Question deep vein thrombosis. COMPARISON: Lower extremity venous ultrasound dated 03/31/2024. TECHNIQUE: Color-flow triplex imaging with spectral analysis and compression Doppler were performed on the bilateral lower extremities. FINDINGS: Respiratory variation, normal compression and augmented flow are noted throughout the bilateral lower extremities. The visualized common femoral vein, superficial femoral vein, profunda femoral vein, popliteal vein and midcalf peroneal and posterior tibial venous segments show no evidence of deep venous thrombosis bilaterally. In the region of the patient's palpable findings at the anterior left knee, there is a varicosity with internal echogenicity which could represent superficial thrombophlebitis. There is no Coreas's cyst. Mild bilateral lower extremity subcutaneous edema. US/US venous duplex LE BI IMPRESSION: 1. No evidence of deep venous thrombosis involving the bilateral lower extremities. 2. In the region of the patient's palpable findings at the anterior left knee, there is a varicosity with internal echogenicity which could represent superficial thrombophlebitis. 3. Mild bilateral lower extremity subcutaneous edema. Electronically signed by: Duong Watson MD 05/02/2024 10:34 AM EDT
--- NOTE | 2024-05-02 09:48 | ECG_ITS ---
Test Reason : CHEST PAIN Blood Pressure : / mmHG Vent. Rate : 077 BPM Atrial Rate : 077 BPM P-R Int : 152 ms QRS Dur : 100 ms QT Int : 378 ms P-R-T Axes : 045 -19 046 degrees QTc Int : 427 ms Normal sinus rhythm Normal ECG When compared with ECG of 31-MAR-2024 22:07, No significant change was found Referred By: Lm Carmona Electronically Signed By:RITA LO
--- NOTE | 2024-05-02 09:51 | ED_ITS ---
HPI - General Adult General Chief complaint: General Medical Stated complaint: LEG SWELLING FALLS Time Seen by Provider: 05/02/24 09:34 Source: patient and EMS Mode of arrival: EMS Limitations: no limitations History of Present Illness HPI narrative: This is a 68 years old male presented to the emergency department with a chief complaint of lower extremity edema. Patient has history of diabetes polyneuropathy obesity it has been going on for weeks he was evaluated in the emergency room on O2 before for swelling of the legs. He is on Lasix 40 mg daily. Onset (ago): week(s) Radiation: non-radiation Severity: moderate Pain Consistency: constant Relieving factors: none Exacerbating factors: none Associated symptoms: denies other symptoms Related Data Home Medications ?Medication ?Instructions ?Recorded ?Confirmed latanoprost 0.005 % eye drops 1 drp ophthalmic (eye) BEDTIME 11/07/20 04/15/24 insulin aspart U-100 100 unit/mL 1 sliding scale dose subcut TIDAC 09/18/23 04/15/24 (3 mL) subcutaneous pen Previous Rx's ?Medication ?Instructions ?Recorded walker #1 ea 01/12/21 blood pressure monitor #1 ea 05/08/22 chair lift #1 ea 09/11/22 walker (Ultra-Light Rollator misc) #1 ea 03/14/23 leg watch dial stoner #1 ea 04/22/23 sock aid #1 ea 04/22/23 flash glucose scanning reader #1 ea 04/25/23 (FreeStyle Tirso 14 Day Dalton) insulin degludec 200 unit/mL (3 55 unit (0.275 mL) subcut BEDTIME 05/07/23 mL) subcutaneous pen (Tresiba 90 days #24.75 mL FlexTouch U-200 insulin) Shower Chair #1 ea 05/13/23 Brace,wrist #1 ea 06/02/23 flash glucose sensor (FreeStyle #2 ea 09/13/23 Tirso 2 Sensor kit) omeprazole 40 mg capsule,delayed 40 mg PO DAILY #30 caps 09/18/23 release sucralfate 1 gram tablet 1 g PO BID #60 tabs 09/18/23 atorvastatin 20 mg tablet 20 mg PO DAILY 30 days #30 tabs 01/30/24 icosapent ethyl 1 gram capsule 2 g (2 x 1 gram) PO BID 30 days 01/30/24 (Vascepa) #120 caps pen needle, diabetic 31 gauge x #200 ea 01/30/2411/19 cholecalciferol (vitamin D3) 50 50 mcg PO DAILY #90 tabs 03/14/24 mcg (2,000 unit) tablet aspirin 81 mg tablet,delayed 81 mg PO DAILY 90 days #90 tabs 03/23/24 release benazepril 40 mg tablet 40 mg PO DAILY #30 tabs 03/23/24 celecoxib 200 mg capsule 200 mg PO BID 30 days #60 caps 03/23/24 cyclobenzaprine 10 mg tablet 10 mg PO BEDTIME muscle spasm 10 03/23/24 days #10 tabs fenofibrate nanocrystallized 145 145 mg PO DAILY 90 days #90 tabs 03/23/24 mg tablet metformin 500 mg tablet,extended 500 mg PO BID 90 days #180 tabs 03/23/24 release 24 hr sitagliptin phosphate 25 mg tablet 25 mg PO DAILY 90 days #90 tabs 03/23/24 (Januvia) adult diapers pull-ups #240 ea 04/15/24 bed rail #1 ea 04/15/24 commode (bedside commode) #1 ea 04/15/24 hydralazine 25 mg tablet 25 mg PO TID 90 days #270 tabs 04/15/24 wipes #400 ea 04/15/24 dulaglutide 1.5 mg/0.5 mL 1.5 mg (0.5 mL) subcut MO #6 mL 04/20/24 subcutaneous pen injector (Trulicity) compr.stocking,knee,long,x-lrg #12 ea 04/21/24 furosemide 20 mg tablet 20 mg PO BID PRN leg edema 30 days 04/21/24 #60 tabs hospital bed #1 ea 04/22/24 oxycodone 10 mg tablet 10 mg PO Q6H PRN pain 30 days #120 04/23/24 tabs wheelchair electric #1 ea 04/27/24 Allergies Allergy/AdvReac Type Severity Reaction Status Date / Time Penicillins [PENICILLINS] Allergy Severe RASH Verified 05/02/24 09:45 jay pepper Allergy Intermediate Rash Verified 05/02/24 09:45 pepper (genus Capsicum) AdvReac Intermediate rashes Verified 05/02/24 09:45 Review of Systems 2 Constitutional: Constitutional: Reports no additional constitutional complaints Cardiovascular: Cardiovascular: Reports no additional cardiovascular complaints [facility] Past Medical History [facility] Narrative: Diabetes, polyneuropathy, obesity, legs edema Medical History Acute cholecystitis due to biliary calculus Diabetes mellitus Essential hypertension Numbness and tingling in right hand Numbness and tingling in left hand Knee osteoarthritis Mild recurrent major depression Mixed hyperlipidemia Right shoulder pain Right knee pain Left knee pain CKD (chronic kidney disease), stage III Low back pain Multiple falls Syncope DAVINA (acute kidney injury) Obesity due to excess calories Lumbar spondylosis Proteinuria Arthritis Hypertriglyceridemia Hypertension Diabetic polyneuropathy associated with type 2 diabetes mellitus Type 2 diabetes mellitus with other diabetic kidney complication Lumbar stenosis Surgical History History of cholecystectomy (~09/19/23) History of surgery on lower extremity History of total left knee replacement (TKR) S/P evacuation of hematoma Hx of cataract surgery History of lumbar surgery Hx of eye surgery History of back surgery Family History Family History Father Medical history unknown Mother No problems noted. Maternal Grandmother Medical history unknown Social History Social History Household Members: None Household Members Other:: self Housing: Apartment Are you a primary palliative care coordinator to a significant other at home: No Do you presently have visiting nurse or other home services: Yes Alcohol intake: never Comment: final count is correct Patient Tobacco Use Status: Former Tobacco user Tobacco use type: Cigarette Years Smoked: 25 e-Cigarette/Vaping Use: Never Used Second Hand Smoke Exposure: No Advance Directives: No Advance Directives Information Provided: No Advance Directives Date on File: 05/12/23 Do you have a plan to hurt others: No Plan service: No Current occupational status: disabled Cognitive needs: Yes (walker) Hearing needs: No Vision needs: Yes (reading glasses) Physical Exam ED Vital Signs: Vital Signs - 24 hr 05/02/24 09:42 05/02/24 11:00 05/02/24 12:46 Temperature 97.7 F 97.6 F 98.3 F Pulse Rate 84 75 78 Respiratory Rate 16 17 16 Blood Pressure 183/77 H 153/66 H 161/71 H Pulse Oximetry 96 95 97 Oxygen Delivery Method Room Air Room Air Room Air 05/02/24 14:34 05/02/24 15:19 05/02/24 16:00 Temperature 98.8 F Pulse Rate 78 79 Respiratory Rate 16 16 Blood Pressure 139/70 105/58 L Pulse Oximetry 99 Oxygen Delivery Method Room Air BMI result Body Mass Index 36.7 He looks well is not toxic-appearing Const General: cooperative, comfortable and well developed Nutritional Appearance: well nourished Orientation/consciousness: patient oriented x3 [facility] General nose exam: Normal external nose present Mouth: Normal oral and palatal mucosa present Throat: Yes posterior oropharynx normal Neck Neck: Yes normal visual inspection Chest Chest palpation & inspection: normal inspection of the chest Resp Effort & Inspection: normal respiratory effort Auscultation: clear to auscultation bilaterally Cardio Jugular venous distension: no JVD Rate: regular rate Rhythm: regular rhythm GI Inspection: Yes normal to inspection Palpation (GI): Soft to palpation, not firm, nontender and no guarding Auscultation: normal bowel sounds Skin General skin exam: no rashes or lesions noted and elasticity normal Lesions: no lesions Neuro General: patient oriented x3 Extrem Other: Patient has 3+ edema in the lower extremity, he has palpable pulses Course Reevaluation(s) Reevaluation #1: Patient has severe legs edema unable to ambulate I think it will benefit for admission for IV diuresis I discussed with the hospitalist Medications Administered Discontinued Medications Generic Name Dose Route Start Last Admin Trade Name Freq PRN Reason Stop Dose Admin Furosemide 40 mg 05/02/24 15:02 05/02/24 15:20 Furosemide 40 Mg/4 Ml Vial IVPUSH 05/02/24 15:03 40 mg ONCE ONE Administration Protocol Insulin Human Lispro 5 unit 05/02/24 11:51 05/02/24 12:31 Insulin Lispro 100 Unit/Ml 3 Ml Vial SUBCUT 05/02/24 11:52 5 unit ONCE ONE Administration Morphine Sulfate 4 mg 05/02/24 15:01 05/02/24 15:19 Morphine Sulfate 4 Mg/Ml Cartridge IVPUSH 05/02/24 15:02 4 mg ONCE ONE Administration Protocol Medical Decision Making Medical Decision Making MDM Narrative: Patient presented with lower extremity edema we will get labs , ultrasound administer the diuretic Differential Diagnosis Differential Diagnoses: The differential diagnosis associated with the presentation includes CHF/DVT Admission/Observation Consideration of admission/observation: Escalation of care including admission/observation considered Lab Data MDM Lab Attestation statement: I reviewed the patient's lab results. 05/02/24 11:22 05/02/24 10:57 Labs: Lab Results 05/02/24 05/02/24 05/02/24 Range/Units 10:56 10:57 11:22 WBC 7.3 (4.8-10.8) X10*3/uL RBC 4.71 (4.60-5.80) X10*6/uL Hgb 13.1 L (14.0-18.0) g/dl Hct 39.9 L (42.0-52.0) % MCV 84.7 (80.0-98.0) fL MCH 27.8 (27.0-33.0) pg MCHC 32.8 (31.0-36.0) g/dl RDW 16.9 H (11.0-16.0) % Plt Count 157 L (160-400) X10*3/uL MPV TNP Immature Gran % (Auto) 0.3 (0.0-0.4) % Neut % (Auto) 71.2 (45-73) % Lymph % (Auto) 16.1 L (20-40) % Quay % (Auto) 8.2 (2-11) % Eos % (Auto) 3.8 (0-4) % Baso % (Auto) 0.4 (0-2) % Lymph # (Auto) 1.2 (1.2-4.9) X10*3/uL Quay # (Auto) 0.6 (0.1-1.2) X10*3/uL Eos # (Auto) 0.3 (0.0-0.4) X10*3/uL Baso # (Auto) 0.0 (0.0-0.2) X10*3/uL Abs Immat Gran (auto) 0.02 (0.00-0.03) X10*3/uL Absolute Neuts (auto) 5.2 (2.0-8.3) x10*3/uL Absolute Nucleated RBC 0.000 (0.0-0.012) X10*3/uL Nucleated RBC % (auto) 0.0 (0.0-0.2) /100WBC Sodium 142 (135-145) mmol/L Potassium 4.0 (3.3-5.1) mmol/L Chloride 110 H (96-108) mmol/L Carbon Dioxide 24 (22-29) mmol/L Anion Gap 12 (12-20) BUN 30 H (9-16) mg/dL Creatinine 1.07 (0.5-1.4) mg/dL Estim Creat Clear Calc 79.2 Estimated GFR > 60 POC Glucose (60-115) mg/dL Random Glucose 353 H* (60-115) mg/dL Calcium 8.7 D (8.4-10.2) mg/dL Total Bilirubin 0.3 (0.0-1.0) mg/dL AST 25 (5-37) U/L ALT 23 (0-40) U/L Alkaline Phosphatase 164 H (39-117) U/L Troponin I High Sens 3.6 (<3.5-35.0) ng/L B-Natriuretic Peptide 59 (<100) pg/mL Total Protein 5.9 L (6.5-8.0) g/dL Albumin 3.3 L (3.5-5.0) g/dL 05/02/24 05/02/24 Range/Units 11:51 14:20 WBC (4.8-10.8) X10*3/uL RBC (4.60-5.80) X10*6/uL Hgb (14.0-18.0) g/dl Hct (42.0-52.0) % MCV (80.0-98.0) fL MCH (27.0-33.0) pg MCHC (31.0-36.0) g/dl RDW (11.0-16.0) % Plt Count (160-400) X10*3/uL MPV Immature Gran % (Auto) (0.0-0.4) % Neut % (Auto) (45-73) % Lymph % (Auto) (20-40) % Quay % (Auto) (2-11) % Eos % (Auto) (0-4) % Baso % (Auto) (0-2) % Lymph # (Auto) (1.2-4.9) X10*3/uL Quay # (Auto) (0.1-1.2) X10*3/uL Eos # (Auto) (0.0-0.4) X10*3/uL Baso # (Auto) (0.0-0.2) X10*3/uL Abs Immat Gran (auto) (0.00-0.03) X10*3/uL Absolute Neuts (auto) (2.0-8.3) x10*3/uL Absolute Nucleated RBC (0.0-0.012) X10*3/uL Nucleated RBC % (auto) (0.0-0.2) /100WBC Sodium (135-145) mmol/L Potassium (3.3-5.1) mmol/L Chloride (96-108) mmol/L Carbon Dioxide (22-29) mmol/L Anion Gap (12-20) BUN (9-16) mg/dL Creatinine (0.5-1.4) mg/dL Estim Creat Clear Calc Estimated GFR POC Glucose 254 H 230 H (60-115) mg/dL Random Glucose (60-115) mg/dL Calcium (8.4-10.2) mg/dL Total Bilirubin (0.0-1.0) mg/dL AST (5-37) U/L ALT (0-40) U/L Alkaline Phosphatase (39-117) U/L Troponin I High Sens (<3.5-35.0) ng/L B-Natriuretic Peptide (<100) pg/mL Total Protein (6.5-8.0) g/dL Albumin (3.5-5.0) g/dL Independent Interpretation I performed an independent interpretation of an: EKG Interpretation: Normal sinus rhythm rate [address]-T changes normal EKG Discharge Plan Discharge Clinical Impression: Edema of both legs, Anasarca Patient Disposition: Admitted As Inpatient
--- OUTSIDE RECORDS SUMMARY | 2024-05-02 09:59 | XMS_ITS | Patient Health Record ---
Author Organization [facility] Address [address], [place] [id number] Support Name Relationship Address Phone Carlos Cabrera Guarantor Unknown Unavailable REASON FOR REFERRAL No Information SOCIAL HISTORY Sex Assigned At : Social History Observation Description Sex Assigned At Unknown PLAN OF TREATMENT No Information Insurance Providers Payer Name Payer Address Payer Phone Subscriber Number Group Number Insured Name Patient Relationship to Insured Coverage Start Date Coverage End Date [facility] [address] [facility] [place] [address] [id number] Carlos Cabrera Self - patient is the insured 2 2
--- OUTSIDE RECORDS SUMMARY | 2024-05-02 09:59 | XMS_ITS | Continuity of Care Document ---
Author Organization [facility] Address [address] [place] [address]- Care Team Providers Care Professor Of Psychology Name Role Phone Orville Álvarez MD, Kaitlin Primary Care Physician Encounter [facility] Date(s): 01/16/24 - 04/23/24 [facility] [address] [place] [id number] Attending Physician: Janina Wood MD [...] Date: 12/02/23 Status: Ordered Freestyle Tirso 2 [place] Freestyle Tirso 2 [place], See Instructions, # 1 each, Refills 0, [...] Ordered Freestyle Lite Lancets See Instructions, # 100 each, Refills 4, Tot. Refills 4, Maintenance, use to test BG once a day E11.9, 12/30/23 9:19:00 EDT, Supply, 172, cm, 12/30/23 9:05:00 EDT, Height Start Date: 12/30/23 Stop Date: 05/28/24 Status: Ordered Freestyle Lite Monitor See Instructions, # 1 each, Refills 5, Tot. Refills 5, Maintenance, use to test BG once a day E11.9, 02/16/24 10:36:00 EDT, Supply, 172, cm, 01/16/24 15:47:00 EDT, Height Start Date: 02/16/24 Stop Date: 08/14/24 Status: Ordered Freestyle Lite Test Strips See Instructions, # 100 each, Refills 4, Tot. Refills 4, Maintenance, use to test BG once a day e11.9, 12/30/23 9:20:00 EDT, Supply, 172, cm, 12/30/23 9:05:00 EDT, Height Start Date: 12/30/23 Stop Date: 05/28/24 Status: Ordered Hydrochlorothiazide By Mouth, Daily, 0 [...] 11 Refills, Maintenance, 04/14/23 11:04:00EDT, ER Tablet, [facility], Partial fill upon patient request if the prescription is for a schedule II opioid drug., 172bo, 09/16/22... Start Date: 04/14/23 Stop Date: 04/08/24 [...] Tresiba FlexTouch 100 units/mL subcutaneous solution = 50 units, Subcutaneous Infusion, Daily, e11.65, # 15 mL, 5 Refills, Maintenance, 05/09/23 12:36:00 EDT, [facility], Partial fill upon patient request if the prescription is for a schedule II opioid drug., 172, bo, 09/16/22 15:54:00... Start Date: 05/09/23 Status: Ordered Trulicity Pen 1.5 mg/0.5 mL subcutaneous solution 0.5 mL = 1.5 mg, Subcutaneous Injection, Every week, rotate injection sites, # 2 mL, 5 Refills, Maintenance, 05/09/23 12:36:00 EDT, Solution, [facility], Partial fill upon patient request if the prescription is for a schedule II opioi... Start Date: 05/09/23 Status: Ordered Problem List Condition Confirmation Course Effective Dates Status Health [facility] Informant Obese class I Confirmed Active Patient Care team information Care Team Personnel Name: Tram Royal MD Position: Reference Physician Member Role: PCP Address: Address: [address] [place] [address]- Care Team Related Persons Name: RM GARCIA Address: home [address] [address] Name: STATES, NONE
--- NOTE | 2024-05-02 10:18 | PC.NURSE ---
patient noted to have bilat groin fungal rash. red and raw appearing
[2024-05-02 11:25] LABS: B Type Natriuretic Peptide 59 pg/mL (<100)
[2024-05-02 11:26] LABS: Basophils Percent Auto 0.4 % (0-2); Hemoglobin 13.1 g/dl (14.0-18.0); Mean Corpuscular Volume 84.7 fL (80.0-98.0); Monocytes Percent Auto 8.2 % (2-11); Red Cell Distribution Width 16.9 % (11.0-16.0); SCAN SMEAR FLAG 1
[2024-05-02 11:28] LABS: Eosinophils Absolute Auto 0.3 X10*3/uL (0.0-0.4); Eosinophils Percent Auto 3.8 % (0-4); Hematocrit 39.9 % (42.0-52.0); Imm Gran Abs Auto 0.02 X10*3/uL (0.00-0.03); Imm Gran Pct Auto 0.3 % (0.0-0.4); Lymphocytes Absolute Auto 1.2 X10*3/uL (1.2-4.9); Lymphocytes Percent Auto 16.1 % (20-40); Mean Corpuscular HGB Conc 32.8 g/dl (31.0-36.0); Mean Corpuscular Hemoglobin 27.8 pg (27.0-33.0); Monocytes Absolute Auto 0.6 X10*3/uL (0.1-1.2); Neutrophils Absolute Auto 5.2 x10*3/uL (2.0-8.3); Neutrophils Percent Auto 71.2 % (45-73); Platelet Count 157 X10*3/uL (160-400); Red Blood Count 4.71 X10*6/uL (4.60-5.80); White Blood Count 7.3 X10*3/uL (4.8-10.8)
[2024-05-02 11:28] LABS: Troponin-I High Sensitivity 3.6 ng/L (<3.5-35.0)
[2024-05-02 11:32] LABS: Alanine Aminotransferase 23 U/L (0-40); Albumin Level 3.3 g/dL (3.5-5.0); Alkaline Phosphatase 164 U/L (39-117); Anion Gap 12 (12-20); Aspartate Amino Transferase 25 U/L (5-37); Bilirubin Total 0.3 mg/dL (0.0-1.0); Blood Urea Nitrogen 30 mg/dL (9-16); Calcium 8.7 mg/dL (8.4-10.2); Carbon Dioxide 24 mmol/L (22-29); Chloride 110 mmol/L (96-108); Creatinine Clr Calc Pharmacy 79.2; Estimated Glomerular Filt Rate > 60; Glucose Random 353 mg/dL (60-115); Sodium 142 mmol/L (135-145); Total Protein 5.9 g/dL (6.5-8.0)
[2024-05-02 11:34] LABS: MANUAL DIFF FLAG NO; PLT ABN DIST 1
[2024-05-02 11:54] LABS: Glucose, Whole Blood 254 mg/dL (60-115)
[2024-05-02] MEDS: Insulin Lispro 100 UNIT/ML 3 ML VIAL SUBCUT ×3 (12:31→21:09)
--- NOTE | 2024-05-02 13:53 | PC.NURSE ---
Pt. requesting pain meds. for generalized all-over body pain. Allan Carmona MD notified. Awaiting orders at this time.
[2024-05-02 14:24] LABS: Glucose, Whole Blood 230 mg/dL (60-115)
--- NOTE | 2024-05-02 14:39 | PC.NURSE ---
Pt. reports to this RN that he's unable to pee. Bladder scanned for 618ccs. Allan Carmona MD aware
[2024-05-02] MEDS: Morphine Sulfate 4 MG/ML CARTRIDGE IVPUSH (15:19)
[2024-05-02] MEDS: Furosemide 40 MG/4 ML VIAL IVPUSH (15:20)
--- NOTE | 2024-05-02 15:44 | P.HPHOSP_ITS ---
History of Present Illness Date of Service: 05/02/24 Chief Complaint: swollen legs This is a 68-year-old male with multiple chronic medical issues as listed below including chronic lymphadema. He is presenting with increasing leg edam for 4 weeks without component of shortness of breath, normal BNP. US of the leg are negative for DVT. CXR show no evidence of pulmonary edema. He lives alone and uses a walker and has been falling frequent and has multiple bruses Review of Systems 2 Review of Systems: Gen: no fever Resp: no sob, no cough CV: no chest, no LERMA, + leg edema GI: No n/v, no abd pain Neuro: No confusion Yes all other systems are reviewed and are negative [facility] Medical History Acute cholecystitis due to biliary calculus Diabetes mellitus Essential hypertension Numbness and tingling in right hand Numbness and tingling in left hand Knee osteoarthritis Mild recurrent major depression Mixed hyperlipidemia Right shoulder pain Right knee pain Left knee pain CKD (chronic kidney disease), stage III Low back pain Multiple falls Syncope DAVINA (acute kidney injury) Obesity due to excess calories Lumbar spondylosis Proteinuria Arthritis Hypertriglyceridemia Hypertension Diabetic polyneuropathy associated with type 2 diabetes mellitus Type 2 diabetes mellitus with other diabetic kidney complication Lumbar stenosis Family History Father Medical history unknown Mother No problems noted. Maternal Grandmother Medical history unknown Surgical History History of cholecystectomy (~09/19/23) History of surgery on lower extremity History of total left knee replacement (TKR) S/P evacuation of hematoma Hx of cataract surgery History of lumbar surgery Hx of eye surgery History of back surgery Social History Household Members: None Household Members Other:: self Housing: Apartment Are you a primary daycare worker to a significant other at home: No Do you presently have visiting nurse or other home services: Yes Alcohol intake: never Comment: final count is correct Patient Tobacco Use Status: Former Tobacco user Tobacco use type: Cigarette Years Smoked: 25 e-Cigarette/Vaping Use: Never Used Second Hand Smoke Exposure: No Advance Directives: No Advance Directives Information Provided: No Advance Directives Date on File: 05/12/23 Do you have a plan to hurt others: No Plan Nutrition Risks: No Nutritional Risk service: No Current occupational status: disabled Cognitive needs: Yes (walker) Hearing needs: No Vision needs: Yes (reading glasses) Meds Allergies Allergy/AdvReac Type Severity Reaction Status Date / Time Penicillins [PENICILLINS] Allergy Severe RASH Verified 05/02/24 09:45 jay pepper Allergy Intermediate Rash Verified 05/02/24 09:45 pepper (genus Capsicum) AdvReac Intermediate rashes Verified 05/02/24 09:45 Active Medications: Current Medications Glucose (Glucose Gel 15 Gm Gel..Gram.) 15 gm PO Q15M PRN; Protocol PRN Reason: per Hypoglycemia Standing Ord. Dextrose (D10) 250 mls @ 750 mls/hr IV Q15M PRN; Protocol PRN Reason: per Hypoglycemia Standing Ord. Insulin Human Lispro (Insulin Lispro 100 Unit/Ml 3 Ml Vial) [facility]; Protocol Home Medications ?Medication ?Instructions ?Recorded ?Confirmed ?Last Taken ?Type latanoprost 0.005 % eye drops 1 drp ophthalmic (eye) BEDTIME 11/07/20 05/02/24 09/17/23 History insulin aspart U-100 100 unit/mL 1 sliding scale dose subcut TIDAC 09/18/23 05/02/24 Unknown History (3 mL) subcutaneous pen aspirin 81 mg tablet,delayed 81 mg PO DAILY@0800 05/02/24 05/02/24 05/02/24 08:00 History release atorvastatin 20 mg tablet 20 mg PO DAILY@199905/02/24 05/02/24 05/01/24 20:00 History benazepril 40 mg tablet 40 mg PO DAILY@199905/02/24 05/02/24 05/01/24 20:00 History celecoxib 200 mg capsule 200 mg PO BID@0800,199905/02/24 05/02/24 05/02/24 08:00 History cyclobenzaprine 10 mg tablet 10 mg PO DAILY@1999 muscle spasm 05/02/24 05/02/24 05/01/24 20:00 History dulaglutide 1.5 mg/0.5 mL 1.5 mg subcut POSADAS 05/02/24 05/02/2424 History subcutaneous pen injector (Trulicity) fenofibrate nanocrystallized 145 145 mg PO DAILY@0800 05/02/24 05/02/24 05/02/24 08:00 History mg tablet furosemide 20 mg tablet 40 mg PO DAILY leg edema 05/02/24 05/02/24 Unknown History hydralazine 25 mg tablet 25 mg PO TID@0800,1299,199905/02/24 05/02/24 05/02/24 08:00 History icosapent ethyl 1 gram capsule 2 g PO BID@0800,199905/02/24 05/02/24 05/02/24 08:00 History (Vascepa) insulin degludec 200 unit/mL (3 50 unit subcut BEDTIME 05/02/24 05/02/24 Unknown History mL) subcutaneous pen (Tresiba FlexTouch U-200 insulin) metformin 500 mg tablet,extended 500 mg PO BID@08,199905/02/24 05/02/24 05/02/24 08:00 History release 24 hr sitagliptin phosphate 25 mg tablet 25 mg PO DAILY@0800 05/02/24 05/02/24 05/02/24 08:00 History (Leonarduvia) Physical Exam 2 Vital Signs and Narrative: Vital Signs: Last Vital Signs Temp 98.3 F 05/02/24 12:46 Pulse 78 05/02/24 14:34 Resp 16 05/02/24 15:19 BP 139/70 05/02/24 14:34 Pulse Ox 97 05/02/24 12:46 O2 Del Method Room Air 05/02/24 12:46 BMI result Body Mass Index 36.7 Const: Other: General: AO X 3, no acute distress Resp: CTA bilateral CVS: S1,S2,RRR, 2+ leg edam bilaterally, good normal distal pulses in the dorsalis pedis and posterial tibial area GI: +BS, NT, no distention Skin: No rash Neuro: motor grossly intact Psych: appropriate affect Results Labs 05/02/24 11:22 05/03/24 04:09 Labs: Laboratory Results - last 24 hr 05/02/24 05/02/24 05/02/24 10:56 10:57 11:22 MCV 84.7 MCH 27.8 MCHC 32.8 RDW 16.9 H Plt Count 157 L MPV TNP Immature Gran % (Auto) 0.3 Neut % (Auto) 71.2 Lymph % (Auto) 16.1 L Dooly % (Auto) 8.2 Eos % (Auto) 3.8 Baso % (Auto) 0.4 Lymph # (Auto) 1.2 Dooly # (Auto) 0.6 Eos # (Auto) 0.3 Baso # (Auto) 0.0 Abs Immat Gran (auto) 0.02 Absolute Neuts (auto) 5.2 Absolute Nucleated RBC 0.000 Nucleated RBC % (auto) 0.0 Anion Gap 12 Estim Creat Clear Calc 79.2 Estimated GFR > 60 POC Glucose Random Glucose 353 H* Calcium 8.7 D Total Bilirubin 0.3 AST 25 ALT 23 Alkaline Phosphatase 164 H Troponin I High Sens 3.6 B-Natriuretic Peptide 59 Total Protein 5.9 L Albumin 3.3 L 05/02/24 05/02/24 11:51 14:20 MCV MCH MCHC RDW Plt Count MPV Immature Gran % (Auto) Neut % (Auto) Lymph % (Auto) Dooly % (Auto) Eos % (Auto) Baso % (Auto) Lymph # (Auto) Dooly # (Auto) Eos # (Auto) Baso # (Auto) Abs Immat Gran (auto) Absolute Neuts (auto) Absolute Nucleated RBC Nucleated RBC % (auto) Anion Gap Estim Creat Clear Calc Estimated GFR POC Glucose 254 H 230 H Random Glucose Calcium Total Bilirubin AST ALT Alkaline Phosphatase Troponin I High Sens B-Natriuretic Peptide Total Protein Albumin Imaging Radiologist's Impressions: Impressions Chest X-Ray 05/02/24 09:48 IMPRESSION: 1. Bilateral low lung volumes. 2. Stable interstitial prominence. 3. Left basilar radiopacity potentially representing atelectasis. 4. Curvilinear radiopaque catheter like density projects over the mid to distal portion of the right clavicle into the supraclavicular region of unclear etiology, correlation with physical exam. Electronically signed by: Reece Eugene MD 05/02/2024 12:01 PM EDT Venous Duplex 05/02/24 10:00 IMPRESSION: 1. No evidence of deep venous thrombosis involving the bilateral lower extremities. 2. In the region of the patient's palpable findings at the anterior left knee, there is a varicosity with internal echogenicity which could represent superficial thrombophlebitis. 3. Mild bilateral lower extremity subcutaneous edema. Electronically signed by: Duong Watson MD 05/02/2024 10:34 AM EDT RP Assessment and Plan (1) Edema of both legs: Status: Acute (2) Multiple falls: Status: Acute Plan 68-year-old male with history of hypertension, insulin-dependent type 2 diabetes, CKD stage 3, diabetic polyneuropathy, hyperlipidemia, mood disorder, and lumbar stenosis here with swollen legs Acute on chronic HFpEF with leg edama in setting of chronic lymphadema -IV diuressis -monitor electrolytes Hypertension -resume home meds insulin-dependent type 2 diabetes -He on trulicity weekly not available in the hospital -ssi, diabetic diet CKD stage 3, creatine is within normal appears to be at baseline HLD -Statin chronic pain continue oxycodone hold celecoxib Thank you for allowing us to participate in the care of this patient, we will follow along with you Quality Stroke Does the patient have a stroke diagnosis?: No VTE Prior VTE?: No VTE Risk Level:: Medical - moderate - high VTE Device Contraindication: Treatment Not Indicated VTE Drug Contraindication: N/A - Med Ordered
--- NOTE | 2024-05-02 16:15 | PC.NURSE ---
Pt. was successfully able to void s/p Lasi 40mg IVP administration. Pt. was incontinent in his bed and was given a full bed change and cleanup by ED Radha Fatima and Kirill.
--- NOTE | 2024-05-02 16:32 | HO.SKINPHOTO ---
Location: Category: Stage: Length: Width: Depth: cm Location: Category: Stage: Length: Width: Depth: cm Location: Category: Stage: Length: Width: Depth: cm Location: Category: Stage: Length: Width: Depth: cm Location: Category: Stage: Length: Width: Depth: cm Location: Category: Stage: Length: Width: Depth: cm
--- NOTE | 2024-05-02 16:35 | PC.NURSE ---
Pressure injury found to pt.'s buttocks during incontinence care. Provider notified and wound consult placed.
--- NOTE | 2024-05-02 17:07 | PHA.MEDREC ---
Addendum entered by Joseph Prescott 05/02/24 17:28: reviewed Original Note: Pharmacy Consult ? Medication Reconciliation Pharmacy has completed the medication reconciliation. Spoke with patient to confirm medications. He had a list with him from [employer]. His medication machine is set up to give his medications at 8AM, 1PM, and 8PM. Medications not in the [employer] machine: vitamin D3, oxycodone, latanoprost, Tresiba (50 units), novolog (SS), Trulicity, and furosemide. There are no claims for novolog, [employer] and [facility] have no history of novolog either but patient reports he uses it SS TID. His furosemide was recently increased to 2 tabs daily, which he states he started 2 weeks ago. Per [employer], his Amlodipine was DC'ed last month and was not in his fill this month. He reports his Trulicity is on Sundays but he did not have it today, had it last Friday. Patient took his morning medications today only.
[2024-05-02 18:20] LABS: Glucose, Whole Blood 215 mg/dL (60-115)
[2024-05-02] MEDS: Enoxaparin Sodium 40 MG/0.4 ML SYRINGE SUBCUT (18:22)
[2024-05-02 20:56] LABS: Glucose, Whole Blood 203 mg/dL (60-115)
[2024-05-02] MEDS: oxyCODONE HCl Immed Release 5 MG TABLET 10 MG PO (21:46)
[2024-05-02] MEDS: Insulin Glargine,Hum.rec.anlog 100 UNIT/ML 10 ML VIAL 25 UNIT SUBCUT (21:47)
--- NOTE | 2024-05-02 23:59 | PC.NURSE ---
Assumed care for pt. Pt aox4 resting at the bedside with legs elevated. No apparent distress noted. Reports generalized pain, 7/10. Denies chest pain, sob, or N/V. Pt is urinating in the urinal. Pending bed assignment and aware of plan of care. Monitoring is ongoing.
[2024-05-03] VITALS (8 sets, daily range): BP systolic 147–184; BP diastolic 68–89; PULSE 78–87; RESP 16–20; TEMP 36.3–37; O2SAT 93–97; BMI 36.7
[2024-05-03] MEDS: 0.9 % Sodium Chloride Flush 3 ML SYRINGE IVFLUSH ×4 (01:13→21:07)
--- NOTE | 2024-05-03 01:47 | MHC.EDTECH ---
patient transferred and moved to hospital bed for comfort.
[2024-05-03] MEDS: oxyCODONE HCl Immed Release 5 MG TABLET 10 MG PO ×3 (04:15→21:02)
[2024-05-03 05:07] LABS: Alanine Aminotransferase 24 U/L (0-40); Albumin Level 3.4 g/dL (3.5-5.0); Alkaline Phosphatase 107 U/L (39-117); Anion Gap 9 (12-20); Aspartate Amino Transferase 25 U/L (5-37); Bilirubin Total 0.4 mg/dL (0.0-1.0); Blood Urea Nitrogen 27 mg/dL (9-16); Calcium 8.8 mg/dL (8.4-10.2); Carbon Dioxide 27 mmol/L (22-29); Chloride 111 mmol/L (96-108); Creatinine Clr Calc Pharmacy 79.2; Estimated Glomerular Filt Rate > 60; Glucose Random 102 mg/dL (60-115); Potassium 3.8 mmol/L (3.3-5.1); Sodium 143 mmol/L (135-145); Total Protein 6.1 g/dL (6.5-8.0)
[2024-05-03] MEDS: Nystatin Powder 15 GM BOTTLE 1 APPL TOPICAL ×3 (06:03→13:09)
[2024-05-03 08:00] LABS: Glucose, Whole Blood 93 mg/dL (60-115)
[2024-05-03] MEDS: Furosemide 40 MG/4 ML VIAL IVPUSH (08:21)
[2024-05-03] MEDS: metFORMIN HCl ER 500 MG TAB.ER.24H PO (08:22)
[2024-05-03] MEDS: Aspirin Enteric Coated 81 MG TABLET.DR PO (08:22)
[2024-05-03] MEDS: Cholecalciferol (Vitamin D3) 25 MCG TABLET 50 MCG PO (08:22)
[2024-05-03 08:58] LABS: Glucose, Whole Blood 146 mg/dL (60-115)
[2024-05-03] MEDS: SITagliptin Phosphate 25 MG TABLET PO (09:41)
[2024-05-03] MEDS: Fenofibrate 160 MG TABLET PO (09:41)
[2024-05-03] MEDS: Celecoxib 200 MG CAPSULE PO ×2 (09:41→21:02)
[2024-05-03 11:44] LABS: Glucose, Whole Blood 243 mg/dL (60-115)
[2024-05-03] MEDS: Insulin Lispro 100 UNIT/ML 3 ML VIAL SUBCUT ×2 (12:25→17:01)
--- NOTE | 2024-05-03 12:26 | MHC.CM.PN ---
CM met with Patient and his Fiance at bedside and addressed IMM with him, providing Patient with the original and a copy has been placed on the chart. Patient lives alone in an apartment and he uses a walker to assist with mobility. Patient has experienced multiple, recent falls and his goal is for STR. Patient will benefit from a PT Eval to assist with disposition. CM has initiated and will follow for dc planning. PCP is Dr. Tram Giron.HCP is
--- NOTE | 2024-05-03 12:52 | P.PNIM_ITS ---
Subjective Subjective Date of Service: 05/03/24 Interval History: f/u up on acute on chronic heart failure with preserved EF swelling is better, no shortness of brehath Physical Exam 2 Vital Signs: Vital Signs: Last Vital Signs Temp 98.1 F 05/03/24 12:00 Pulse 80 05/03/24 12:00 Resp 16 05/03/24 12:00 BP 150/88 H 05/03/24 12:00 Pulse Ox 95 05/03/24 12:00 O2 Del Method Room Air 05/03/24 12:00 BMI result Body Mass Index 36.7 Const: Other: General: AO X 3, no acute distress Resp: CTA bilateral CVS: S1,S2,RRR GI: +BS, NT, no distention Skin: No rash, righ periorbital bruses Neuro: motor grossly intact Psych: appropriate affect Objective Data Active Medications Acetaminophen (Acetaminophen 325 Mg Tablet) 650 mg PO Q6H PRN PRN Reason: Pain, Mild (Pain Scale 1-3), fever or headache Al Hydroxide/Mg Hydroxide (Magnesium Hydrox/Alum Hydrox 30 Ml Oral.Susp) 30 ml PO Q4H PRN PRN Reason: Heartburn Aspirin (Aspirin Enteric Coated 81 Mg Tablet.) 81 mg PO DAILY@0800 [facility] Last Admin: 05/03/24 08:22 Dose: 81 mg Documented By: JAIME Atorvastatin Calcium (Atorvastatin Calcium 20 Mg Tablet) 20 mg PO DAILY@1999 [facility] Calcium Carbonate (Calcium Carbonate 750 Mg Tab.Chew) 750 mg PO Q4H PRN PRN Reason: Heartburn Celecoxib (Celecoxib 200 Mg Capsule) 200 mg PO BID@ [facility] Last Admin: 05/03/24 09:41 Dose: 200 mg Documented By: JT Cyclobenzaprine HCl (Cyclobenzaprine Hcl 10 Mg Tablet) 10 mg PO DAILY@1999 [facility] Enoxaparin Sodium (Enoxaparin Sodium 40 Mg/0.4 Ml Syringe) 40 mg SUBCUT Q24H [facility] Last Admin: 05/02/24 18:22 Dose: 40 mg Documented By: JOSELINE Fenofibrate (Fenofibrate 160 Mg Tablet) 160 mg PO DAILY@0800 [facility] Last Admin: 05/03/24 09:41 Dose: 160 mg Documented By: JT Furosemide (Furosemide 40 Mg/4 Ml Vial) 40 mg IVPUSH DAILY [facility]; Protocol Last Admin: 05/03/24 08:21 Dose: 40 mg Documented By: JAIME Glucose (Glucose Gel 15 Gm Gel..Gram.) 15 gm PO Q15M PRN; Protocol PRN Reason: per Hypoglycemia Standing Ord. Dextrose (D10) 250 mls @ 750 mls/hr IV Q15M PRN; Protocol PRN Reason: per Hypoglycemia Standing Ord. Insulin Glargine (Insulin Glargine,Hum.Rec.Anlog 100 Unit/Ml 10 Ml Vial) 25 unit SUBCUT BEDTIME [facility] Last Admin: 05/02/24 21:47 Dose: 25 unit Documented By: JOSELINE Insulin Human Lispro (Insulin Lispro 100 Unit/Ml 3 Ml Vial) 0 unit SUBCUT QIDACHS [facility]; Protocol Last Admin: 05/03/24 12:25 Dose: 4 unit Documented By: AILYN Latanoprost (Latanoprost 0.005 % Ophth Maria Eugenia 2.5 Ml Drops) 1 drop EYE-BOTH BEDTIME [facility] Last Admin: 05/02/24 22:26 Dose: Not Given Documented By: JOSELINE Non-Admin Reason: Med Not Available Magnesium Hydroxide (Milk Of Magnesia 30 Ml Oral.Susp) 30 ml PO DAILY PRN PRN Reason: Constipation Melatonin (Melatonin 3 Mg Tablet) 6 mg PO BEDTIME PRN PRN Reason: Insomnia Metformin HCl (Metformin Hcl Er 500 Mg Tab.Er.24h) 500 mg PO BID@799,1999 [facility] Last Admin: 05/03/24 08:22 Dose: 500 mg Documented By: JAIME Non-Formulary Medication (Dulaglutide [Trulicity]) 1.5 mg SUBCUT POSADAS [facility] Non-Formulary Medication (Icosapent Ethyl [Vascepa]) 2 gm PO BID@ [facility] Nystatin (Nystatin Powder 15 Gm Bottle) 1 appl TOPICAL TID [facility]; Protocol Last Admin: 05/03/24 08:26 Dose: 1 appl Documented By: JAIME Ondansetron HCl (Ondansetron Hcl 4 Mg/2 Ml Vial) 4 mg IVPUSH Q8H PRN PRN Reason: Nausea and Vomiting Oxycodone HCl (Oxycodone Hcl Immed Release 5 Mg Tablet) 10 mg PO Q6H PRN PRN Reason: Pain, Severe (Pain Scale 7-10) Last Admin: 05/03/24 04:15 Dose: 10 mg Documented By: LETICIA Polyethylene Glycol (Polyethylene Glycol 3350 17 Gm Powd.Pack) 17 gm PO DAILY PRN PRN Reason: Constipation Sitagliptin Phosphate (Sitagliptin Phosphate 25 Mg Tablet) 25 mg PO DAILY@0800 [facility] Last Admin: 05/03/24 09:41 Dose: 25 mg Documented By: JT Sodium Chloride (0.9 % Sodium Chloride Flush 3 Ml Syringe) 3 ml IVFLUSH QSHIFT [facility] Last Admin: 05/03/24 08:08 Dose: 3 ml Documented By: JAIME Vitamin D (Cholecalciferol (Vitamin D3) 25 Mcg Tablet) 50 mcg PO DAILY [facility] Last Admin: 05/03/24 08:22 Dose: 50 mcg Documented By: JAIME Labs 05/02/24 11:22 05/03/24 04:09 Labs: Laboratory Results - last 24 hr 05/02/24 05/02/24 05/02/24 14:20 18:16 20:52 Anion Gap Estim Creat Clear Calc Estimated GFR POC Glucose 230 H 215 H 203 H Random Glucose Calcium Total Bilirubin AST ALT Alkaline Phosphatase Total Protein Albumin 05/03/24 05/03/24 05/03/24 04:09 07:56 08:54 Anion Gap 9 L Estim Creat Clear Calc 79.2 Estimated GFR > 60 POC Glucose 93 146 H Random Glucose 102 Calcium 8.8 Total Bilirubin 0.4 AST 25 ALT 24 Alkaline Phosphatase 107 Total Protein 6.1 L Albumin 3.4 L 05/03/24 11:40 Anion Gap Estim Creat Clear Calc Estimated GFR POC Glucose 243 H Random Glucose Calcium Total Bilirubin AST ALT Alkaline Phosphatase Total Protein Albumin Assessment and Plan (1) Edema of both legs: Status: Acute (2) Anasarca: Status: Acute Plan 68-year-old male with history of hypertension, insulin-dependent type 2 diabetes, CKD stage 3, diabetic polyneuropathy, hyperlipidemia, mood disorder, and lumbar stenosis here with swollen legs Acute on chronic HFpEF with leg edama in setting of chronic lymphadema--overall better -IV diuressis x 1 more day and then change to PO -monitor electrolytes Hypertension--not on meds at home -add Lisinopril 10 and montirong bmp insulin-dependent type 2 diabetes -He on trulicity weekly not available in the hospital, metformin and tresib -change Tresiba to Lantus at 25 (50 at home), hold metformin, contiunue Sitagliptin -ssi, diabetic diet CKD stage 3, creatine is within normal HLD -Statin chronic pain continue oxycodone celecoxib, PT eval before dc Quality Stroke Does the patient have a stroke diagnosis?: No VTE Prior VTE?: No VTE Risk Level:: Medical - moderate - high VTE Device Contraindication: Treatment Not Indicated VTE Drug Contraindication: N/A - Med Ordered
[2024-05-03] MEDS: lisinopriL 10 MG TABLET PO (13:08)
--- NOTE | 2024-05-03 13:36 | MHC.CM.PN ---
CM assisted Patient with the completion of a new HCP; he has named his Richance/Félix as the Primary Agent and his Son/Jose Luis as the Alternate Agent.
--- NOTE | 2024-05-03 14:58 | HO.WOUND ---
Wound Consult: Initial 68yr old? Male admitted to [facility] on 05/02/24 - See progress notes and H&P for detailed history.? Wound consult placed for sacral wound POA.? Patient agreeable to assessment and photo documentation.? Patient reports she has had this wound for two - three weeks at home. he reports he has not been receiving care for this injury prior to admission. Sacrum picture from admission Sacrum Etiology: ??Stage 2 Pressure Injury Present on Admission - Resolving Measurements: 2cm x 8cm x 0.1cm Wound Bed: dried adherent scab Drainage / Odor: None noted Edges: irregular? Rosmery wound: red pink blanchable tissue - evidence of MASD - No Induration, Fluctuance or Warmth noted Pain: reports tenderness and some pain Goals of Treatment: ? Protect from Moisture and friction with foam dressing and or barrier cream. Off Load Pressure Fungal dermatitis noted to his abdominal skin folds and bilateral groin and perineal area - Antifungal powder in use already - continue with powder use until clinical clearing - staff advised to dust off excess powder to prevent caking. Recommendations: 1. Turn and Reposition every 2 hours and as needed for patient comfort.? Use pillows or wedges to support off loading positions. 2. Off Load all bony prominences with use of pillows and heel boots if needed.? Apply Preventative foams where needed. ? 3. Monitor for incontinence and moisture control, use barrier creams when needed for prevention and treatment. 4. Provide adequate and supplemental nutrition.? 5. Order low air loss mattress. 6. When applicable maintain blood glucose levels per Providers order. 7. Abdominal skin fold, Bilateral Groin and Perineal area - Routine cleansing - Cleanse with PH balance wipes, pat dry with soft cloth.? Apply antifungal power to assist with moisture management.? Be sure to dust of excess powder to prevent caking on skin and in folds. Apply per provider orders. 8. Sacrum - Off Load Pressure? - Cleanse with PH balance spray or wipes, pat dry. ?Apply thin layer of Triad to wound bed. Do not remove all of paste between applications as this may cause further skin damage.? Cover with foam dressing to aid in off loading and protection from friction. Change every 5 days and PRN. Re-consult wound care Nurse for wound deterioration or wound changes.
[2024-05-03 16:14] LABS: Glucose, Whole Blood 184 mg/dL (60-115)
[2024-05-03] MEDS: Enoxaparin Sodium 40 MG/0.4 ML SYRINGE SUBCUT (17:01)
[2024-05-03 20:30] LABS: Glucose, Whole Blood 138 mg/dL (60-115)
[2024-05-03] MEDS: Insulin Glargine,Hum.rec.anlog 100 UNIT/ML 10 ML VIAL 25 UNIT SUBCUT (21:02)
[2024-05-03] MEDS: Cyclobenzaprine HCl 10 MG TABLET PO (21:02)
[2024-05-03] MEDS: Atorvastatin Calcium 20 MG TABLET PO (21:02)
[2024-05-03] MEDS: Latanoprost 0.005 % Ophth Sol 2.5 ML DROPS 1 DROP EYE-BOTH (21:05)
[2024-05-04] VITALS (7 sets, daily range): BP systolic 141–165; BP diastolic 71–82; PULSE 72–82; RESP 14–20; TEMP 36.1–37.3; O2SAT 93–97
[2024-05-04 07:12] LABS: Anion Gap 14 (12-20); Blood Urea Nitrogen 28 mg/dL (9-16); Calcium 8.9 mg/dL (8.4-10.2); Carbon Dioxide 25 mmol/L (22-29); Chloride 110 mmol/L (96-108); Estimated Glomerular Filt Rate 60; Glucose Random 97 mg/dL (60-115); Potassium 3.9 mmol/L (3.3-5.1); Sodium 145 mmol/L (135-145)
[2024-05-04 07:29] LABS: Glucose, Whole Blood 94 mg/dL (60-115)
[2024-05-04] MEDS: Aspirin Enteric Coated 81 MG TABLET.DR PO (08:28)
[2024-05-04] MEDS: Fenofibrate 160 MG TABLET PO (08:28)
[2024-05-04] MEDS: Celecoxib 200 MG CAPSULE PO ×2 (08:28→20:34)
[2024-05-04] MEDS: SITagliptin Phosphate 25 MG TABLET PO (08:29)
[2024-05-04] MEDS: Furosemide 40 MG/4 ML VIAL IVPUSH (08:29)
[2024-05-04] MEDS: 0.9 % Sodium Chloride Flush 3 ML SYRINGE IVFLUSH ×2 (08:29→17:51)
[2024-05-04] MEDS: lisinopriL 10 MG TABLET PO (08:29)
[2024-05-04] MEDS: Cholecalciferol (Vitamin D3) 25 MCG TABLET 50 MCG PO (08:29)
[2024-05-04] MEDS: oxyCODONE HCl Immed Release 5 MG TABLET 10 MG PO ×2 (08:31→17:50)
[2024-05-04] MEDS: Nystatin Powder 15 GM BOTTLE 1 APPL TOPICAL ×3 (08:31→20:46)
[2024-05-04] MEDS: amLODIPine Besylate 2.5 MG TABLET PO (09:37)
[2024-05-04 10:56] LABS: Glucose, Whole Blood 243 mg/dL (60-115)
[2024-05-04] MEDS: Insulin Lispro 100 UNIT/ML 3 ML VIAL SUBCUT ×2 (11:50→20:35)
--- NOTE | 2024-05-04 12:57 | MHC.CM.PN ---
CM MET W/PT PER REQUEST, PT ASKING ABOUT WHICH FACILITY HE WILL GO TO FOR STR, OPTIONS FROM REFERRAL REVIEWED W/PT AND PT [facility]ERS [facility]. PT ALSO REQUESTING HELP CHANGING PCP'S AND FEELS HE IS INT [facility] BECAUSE HIS CURRENT PCP DIDN'T DO ANYTHING FOR HIM AND WAS SUPPOSED TO ORDER AN MRI, PT AWARE IT COULD TAKE MONTHS TO GET AN APPT W/A NEW PCP HOWEVER PT WOULD STILL LIKE TO SWITCH.
[2024-05-04 16:29] LABS: Glucose, Whole Blood 143 mg/dL (60-115)
--- NOTE | 2024-05-04 16:56 | HO.PM.IMPN ---
Subjective Subjective Date of Service: 05/04/24 Interval History: chf excrebation Review of Systems sob somewhat improving leg edema seems similar Physical Exam Vital Signs: Vital Signs: Last Vital Signs Temp 97.6 F 05/04/24 15:24 Pulse 79 05/04/24 15:24 Resp 20 05/04/24 15:24 BP 141/82 H 05/04/24 15:24 Pulse Ox 93 05/04/24 15:24 O2 Del Method Room Air 05/04/24 15:24 BMI result Body Mass Index 36.7 General: AO X 3, no acute distress Resp: CTA bilateral CVS: S1,S2,RRR GI: +BS, NT, no distention Skin: No rash, righ periorbital bruses Neuro: motor grossly intact Psych: appropriate affect Objective Data Active Medications Acetaminophen (Acetaminophen 325 Mg Tablet) 650 mg PO Q6H PRN PRN Reason: Pain, Mild (Pain Scale 1-3), fever or headache Al Hydroxide/Mg Hydroxide (Magnesium Hydrox/Alum Hydrox 30 Ml Oral.Susp) 30 ml PO Q4H PRN PRN Reason: Heartburn Amlodipine Besylate (Amlodipine Besylate 2.5 Mg Tablet) 2.5 mg PO DAILY [facility]; Protocol Last Admin: 05/04/24 09:37 Dose: 2.5 mg Documented By: PETER Aspirin (Aspirin Enteric Coated 81 Mg Tablet.) 81 mg PO DAILY@08 [facility] Last Admin: 05/04/24 08:28 Dose: 81 mg Documented By: PETER Atorvastatin Calcium (Atorvastatin Calcium 20 Mg Tablet) 20 mg PO DAILY@1999 [facility] Last Admin: 05/03/24 21:02 Dose: 20 mg Documented By: LOUISE Calcium Carbonate (Calcium Carbonate 750 Mg Tab.Chew) 750 mg PO Q4H PRN PRN Reason: Heartburn Celecoxib (Celecoxib 200 Mg Capsule) 200 mg PO BID@799,1999 [facility] Last Admin: 05/04/24 08:28 Dose: 200 mg Documented By: PETER Cyclobenzaprine HCl (Cyclobenzaprine Hcl 10 Mg Tablet) 10 mg PO DAILY@1999 [facility] Last Admin: 05/03/24 21:02 Dose: 10 mg Documented By: LOUISE Enoxaparin Sodium (Enoxaparin Sodium 40 Mg/0.4 Ml Syringe) 40 mg SUBCUT Q24H [facility] Last Admin: 05/03/24 17:01 Dose: 40 mg Documented By: AILYN Fenofibrate (Fenofibrate 160 Mg Tablet) 160 mg PO DAILY@0800 [facility] Last Admin: 05/04/24 08:28 Dose: 160 mg Documented By: PETER Furosemide (Furosemide 40 Mg/4 Ml Vial) 40 mg IVPUSH DAILY [facility]; Protocol Last Admin: 05/04/24 08:29 Dose: 40 mg Documented By: PETER Glucose (Glucose Gel 15 Gm Gel..Gram.) 15 gm PO Q15M PRN; Protocol PRN Reason: per Hypoglycemia Standing Ord. Dextrose (D10) 250 mls @ 750 mls/hr IV Q15M PRN; Protocol PRN Reason: per Hypoglycemia Standing Ord. Insulin Glargine (Insulin Glargine,Hum.Rec.Anlog 100 Unit/Ml 10 Ml Vial) 25 unit SUBCUT BEDTIME [facility] Last Admin: 05/03/24 21:02 Dose: 25 unit Documented By: LOUISE Insulin Human Lispro (Insulin Lispro 100 Unit/Ml 3 Ml Vial) 0 unit SUBCUT QIDACHS [facility]; Protocol Last Admin: 05/04/24 16:32 Dose: Not Given Documented By: LUIS Non-Admin Reason: No Insulin Coverage Latanoprost (Latanoprost 0.005 % Ophth Maria Eugenia 2.5 Ml Drops) 1 drop EYE-BOTH BEDTIME [facility] Last Admin: 05/03/24 21:05 Dose: 1 drop Documented By: LOUISE Lisinopril (Lisinopril 10 Mg Tablet) 10 mg PO DAILY [facility]; Protocol Last Admin: 05/04/24 08:29 Dose: 10 mg Documented By: PETER Magnesium Hydroxide (Milk Of Magnesia 30 Ml Oral.Susp) 30 ml PO DAILY PRN PRN Reason: Constipation Melatonin (Melatonin 3 Mg Tablet) 6 mg PO BEDTIME PRN PRN Reason: Insomnia Non-Formulary Medication (Dulaglutide [Trulicity]) 1.5 mg SUBCUT [facility] Non-Formulary Medication (Icosapent Ethyl [Vascepa]) 2 gm PO BID@0800,2000 [facility] Nystatin (Nystatin Powder 15 Gm Bottle) 1 appl TOPICAL TID [facility]; Protocol Last Admin: 05/04/24 08:31 Dose: 1 appl Documented By: PETER Ondansetron HCl (Ondansetron Hcl 4 Mg/2 Ml Vial) 4 mg IVPUSH Q8H PRN PRN Reason: Nausea and Vomiting Oxycodone HCl (Oxycodone Hcl Immed Release 5 Mg Tablet) 10 mg PO Q6H PRN PRN Reason: Pain, Severe (Pain Scale 7-10) Last Admin: 05/04/24 08:31 Dose: 10 mg Documented By: PETER Polyethylene Glycol (Polyethylene Glycol 3350 17 Gm Powd.Pack) 17 gm PO DAILY PRN PRN Reason: Constipation Sitagliptin Phosphate (Sitagliptin Phosphate 25 Mg Tablet) 25 mg PO DAILY@0800 [facility] Last Admin: 05/04/24 08:29 Dose: 25 mg Documented By: PETER Sodium Chloride (0.9 % Sodium Chloride Flush 3 Ml Syringe) 3 ml IVFLUSH QSHIFT [facility] Last Admin: 05/04/24 08:29 Dose: 3 ml Documented By: PETER Vitamin D (Cholecalciferol (Vitamin D3) 25 Mcg Tablet) 50 mcg PO DAILY [facility] Last Admin: 05/04/24 08:29 Dose: 50 mcg Documented By: PETER Labs 05/02/24 11:22 05/04/24 06:06 Labs: Laboratory Results - last 24 hr 05/03/24 05/04/24 05/04/24 20:26 06:06 07:23 Hold Purple Top SEE NOTE Anion Gap 14 Estim Creat Clear Calc 70.0 Estimated GFR 60 POC Glucose 138 H 94 Random Glucose 97 Calcium 8.9 05/04/24 05/04/24 10:51 16:23 Hold Purple Top Anion Gap Estim Creat Clear Calc Estimated GFR POC Glucose 243 H 143 H Random Glucose Calcium Assessment and Plan (1) Edema of both legs: Status: Acute (2) Anasarca: Status: Acute Plan 68-year-old male with history of hypertension, insulin-dependent type 2 diabetes, CKD stage 3, diabetic polyneuropathy, hyperlipidemia, mood disorder, and lumbar stenosis here with swollen legs Acute on chronic HFpEF with leg edama in setting of chronic lymphadema -IV diuressis x 1 more day and then change to PO -monitor electrolytes Hypertension--not on meds at home -add Lisinopril 10 and montirong bmp insulin-dependent type 2 diabetes -He on trulicity weekly not available in the hospital, metformin and tresib -change Tresiba to Lantus at 25 (50 at home), hold metformin, contiunue Sitagliptin -ssi, diabetic diet CKD stage 3, creatine is within normal HLD -Statin chronic pain continue oxycodone celecoxib, PT eval before dc ongoing hospitilsation need-Acute on chronic HFpEF with leg edama in setting of chronic lymphadema-need iv lasix ,i/o and respiratory monitering Quality Stroke Does the patient have a stroke diagnosis?: No VTE Prior VTE?: No VTE Risk Level:: Medical - moderate - high VTE Device Contraindication: Treatment Not Indicated VTE Drug Contraindication: N/A - Med Ordered
[2024-05-04] MEDS: Enoxaparin Sodium 40 MG/0.4 ML SYRINGE SUBCUT (17:50)
[2024-05-04 20:10] LABS: Glucose, Whole Blood 227 mg/dL (60-115)
[2024-05-04] MEDS: Cyclobenzaprine HCl 10 MG TABLET PO (20:34)
[2024-05-04] MEDS: Atorvastatin Calcium 20 MG TABLET PO (20:34)
[2024-05-04] MEDS: Insulin Glargine,Hum.rec.anlog 100 UNIT/ML 10 ML VIAL 25 UNIT SUBCUT (20:35)
[2024-05-04] MEDS: Latanoprost 0.005 % Ophth Sol 2.5 ML DROPS 1 DROP EYE-BOTH (20:45)
[2024-05-05] VITALS (11 sets, daily range): BP systolic 125–190; BP diastolic 58–95; PULSE 63–89; RESP 12–20; TEMP 36–36.8; O2SAT 94–99
[2024-05-05] MEDS: 0.9 % Sodium Chloride Flush 3 ML SYRINGE IVFLUSH ×3 (00:13→17:26)
[2024-05-05 05:53] LABS: Anion Gap 14 (12-20); Blood Urea Nitrogen 30 mg/dL (9-16); Calcium 8.9 mg/dL (8.4-10.2); Carbon Dioxide 25 mmol/L (22-29); Chloride 107 mmol/L (96-108); Creatinine Clr Calc Pharmacy 73.7; Estimated Glomerular Filt Rate > 60; Glucose Random 123 mg/dL (60-115); Sodium 142 mmol/L (135-145)
[2024-05-05 06:55] LABS: Glucose, Whole Blood 111 mg/dL (60-115)
[2024-05-05] MEDS: lisinopriL 10 MG TABLET PO (09:05)
[2024-05-05] MEDS: Cholecalciferol (Vitamin D3) 25 MCG TABLET 50 MCG PO (09:05)
[2024-05-05] MEDS: Fenofibrate 160 MG TABLET PO (09:05)
[2024-05-05] MEDS: SITagliptin Phosphate 25 MG TABLET PO (09:05)
[2024-05-05] MEDS: Celecoxib 200 MG CAPSULE PO ×2 (09:06→21:03)
[2024-05-05] MEDS: amLODIPine Besylate 2.5 MG TABLET PO ×2 (09:06→15:19)
[2024-05-05] MEDS: Aspirin Enteric Coated 81 MG TABLET.DR PO (09:06)
[2024-05-05] MEDS: Furosemide 40 MG/4 ML VIAL IVPUSH (09:07)
[2024-05-05] MEDS: oxyCODONE HCl Immed Release 5 MG TABLET 10 MG PO ×3 (09:14→21:05)
[2024-05-05 11:03] LABS: Glucose, Whole Blood 234 mg/dL (60-115)
--- NOTE | 2024-05-05 12:01 | MHC.CM.PN ---
Addendum entered by Radha Collado 05/05/24 14:47: IMM 05/05/24 [facility] has obtained insurance auth. Patient will discharge tomorrow due to high bp readings. DP [facility] via BLS Original Note: PT + OT documentation has been sent to [facility]. Insurance authorization is pending. DP to [facility] via BLS.
[2024-05-05] MEDS: Insulin Lispro 100 UNIT/ML 3 ML VIAL SUBCUT ×3 (12:02→21:00)
--- NOTE | 2024-05-05 12:34 | P.CDIM_ITS ---
PROVIDER RESPONSE TEXT: To clarify, the appropriate diagnosis supported by the clinical indicators: Pressure Injury Sacrum Stage 2: stage 2 QUERY TEXT: PHYSICIAN'S DOCUMENTATION REQUEST Date of Query: 05/05/2024 07:47 AM EDT Patient Name: Carlos Cabrera Admit Date: 05/02/2024 Dear Rufus Velasquez MD, A review of the medical record indicates additional documentation may be needed. Please review below and update the documentation accordingly. Clinical Indicators: Wound care consult note 05/03 - Stage 2 pressure injury sacrum - present on admission Protect from moisture and friction with foam dressing and/or barrier cream. Off load pressure. Based on the above, could you please provide further information regarding the ulcer/wound/injury: Pressure Injury Sacrum Stage 2 possible, probable, suspected, etc. Other (explain) Clinically unable to determine (explain) Thank you, Brisa Deras, CCS, CDIS Use of terms such as suspected, likely, concern for, or probable (associated with a specific diagnosi s that is being evaluated, monitored, or treated as if it exists) are acceptable and can be coded in the inpatient se tting, when documented at the time of discharge. Please use your independent medical judgment in providing your response. THIS QUERY IS PART OF THE PERMANENT MEDICAL RECORD
[2024-05-05] MEDS: Acetaminophen 325 MG TABLET 650 MG PO (14:13)
--- NOTE | 2024-05-05 16:02 | HO.PM.IMPN ---
Subjective Subjective Date of Service: 05/05/24 Interval History: chf excerebation Review of Systems sob somewhat improving no chest pain Physical Exam Vital Signs: Vital Signs: Last Vital Signs Temp 97.6 F 05/05/24 15:11 Pulse 82 05/05/24 15:11 Resp 18 05/05/24 15:11 BP 152/71 H 05/05/24 15:11 Pulse Ox 94 05/05/24 15:11 O2 Del Method Room Air 05/05/24 15:11 BMI result Body Mass Index 36.7 General: AO X 3, no acute distress Resp: CTA bilateral CVS: S1,S2,RRR GI: +BS, NT, no distention Skin: No rash, righ periorbital bruses Neuro: motor grossly intact Psych: appropriate affect Objective Data Active Medications Acetaminophen (Acetaminophen 325 Mg Tablet) 650 mg PO Q6H PRN PRN Reason: Pain, Mild (Pain Scale 1-3), fever or headache Last Admin: 05/05/24 14:13 Dose: 650 mg Documented By: SAVITA Al Hydroxide/Mg Hydroxide (Magnesium Hydrox/Alum Hydrox 30 Ml Oral.Susp) 30 ml PO Q4H PRN PRN Reason: Heartburn Amlodipine Besylate (Amlodipine Besylate 2.5 Mg Tablet) 2.5 mg PO DAILY [facility]; Protocol Last Admin: 05/05/24 09:06 Dose: 2.5 mg Documented By: JOHNNY Aspirin (Aspirin Enteric Coated 81 Mg Tablet.) 81 mg PO DAILY@08 [facility] Last Admin: 05/05/24 09:06 Dose: 81 mg Documented By: JOHNNY Atorvastatin Calcium (Atorvastatin Calcium 20 Mg Tablet) 20 mg PO DAILY@1999 [facility] Last Admin: 05/04/24 20:34 Dose: 20 mg Documented By: ISABEL Calcium Carbonate (Calcium Carbonate 750 Mg Tab.Chew) 750 mg PO Q4H PRN PRN Reason: Heartburn Celecoxib (Celecoxib 200 Mg Capsule) 200 mg PO BID@799,1999 [facility] Last Admin: 05/05/24 09:06 Dose: 200 mg Documented By: JOHNNY Cyclobenzaprine HCl (Cyclobenzaprine Hcl 10 Mg Tablet) 10 mg PO DAILY@1999 [facility] Last Admin: 05/04/24 20:34 Dose: 10 mg Documented By: ISABEL Enoxaparin Sodium (Enoxaparin Sodium 40 Mg/0.4 Ml Syringe) 40 mg SUBCUT Q24H [facility] Last Admin: 05/04/24 17:50 Dose: 40 mg Documented By: LUIS Fenofibrate (Fenofibrate 160 Mg Tablet) 160 mg PO DAILY@0800 [facility] Last Admin: 05/05/24 09:05 Dose: 160 mg Documented By: JOHNNY Furosemide (Furosemide 40 Mg/4 Ml Vial) 40 mg IVPUSH DAILY [facility]; Protocol Last Admin: 05/05/24 09:07 Dose: 40 mg Documented By: JOHNNY Glucose (Glucose Gel 15 Gm Gel..Gram.) 15 gm PO Q15M PRN; Protocol PRN Reason: per Hypoglycemia Standing Ord. Dextrose (D10) 250 mls @ 750 mls/hr IV Q15M PRN; Protocol PRN Reason: per Hypoglycemia Standing Ord. Insulin Glargine (Insulin Glargine,Hum.Rec.Anlog 100 Unit/Ml 10 Ml Vial) 25 unit SUBCUT BEDTIME [facility] Last Admin: 05/04/24 20:35 Dose: 25 unit Documented By: ISABEL Insulin Human Lispro (Insulin Lispro 100 Unit/Ml 3 Ml Vial) 0 unit SUBCUT QIDACHS [facility]; Protocol Last Admin: 05/05/24 12:02 Dose: 4 unit Documented By: SAVITA Latanoprost (Latanoprost 0.005 % Ophth Maria Eugenia 2.5 Ml Drops) 1 drop EYE-BOTH BEDTIME [facility] Last Admin: 05/04/24 20:45 Dose: 1 drop Documented By: ISABEL Lisinopril (Lisinopril 10 Mg Tablet) 10 mg PO DAILY [facility]; Protocol Last Admin: 05/05/24 09:05 Dose: 10 mg Documented By: JOHNNY Magnesium Hydroxide (Milk Of Magnesia 30 Ml Oral.Susp) 30 ml PO DAILY PRN PRN Reason: Constipation Melatonin (Melatonin 3 Mg Tablet) 6 mg PO BEDTIME PRN PRN Reason: Insomnia Non-Formulary Medication (Dulaglutide [Trulicity]) 1.5 mg SUBCUT [place] [facility] Non-Formulary Medication (Icosapent Ethyl [Vascepa]) 2 gm PO BID@0800,2000 [facility] Nystatin (Nystatin Powder 15 Gm Bottle) 1 appl TOPICAL TID [facility]; Protocol Last Admin: 05/05/24 15:21 Dose: Not Given Documented By: SAVITA Non-Admin Reason: Previously Administered Ondansetron HCl (Ondansetron Hcl 4 Mg/2 Ml Vial) 4 mg IVPUSH Q8H PRN PRN Reason: Nausea and Vomiting Oxycodone HCl (Oxycodone Hcl Immed Release 5 Mg Tablet) 10 mg PO Q6H PRN PRN Reason: Pain, Severe (Pain Scale 7-10) Last Admin: 05/05/24 15:18 Dose: 10 mg Documented By: SAVITA Polyethylene Glycol (Polyethylene Glycol 3350 17 Gm Powd.Pack) 17 gm PO DAILY PRN PRN Reason: Constipation Sitagliptin Phosphate (Sitagliptin Phosphate 25 Mg Tablet) 25 mg PO DAILY@0800 [facility] Last Admin: 05/05/24 09:05 Dose: 25 mg Documented By: JOHNNY Sodium Chloride (0.9 % Sodium Chloride Flush 3 Ml Syringe) 3 ml IVFLUSH QSHIFT [facility] Last Admin: 05/05/24 09:07 Dose: 3 ml Documented By: JOHNNY Vitamin D (Cholecalciferol (Vitamin D3) 25 Mcg Tablet) 50 mcg PO DAILY [facility] Last Admin: 05/05/24 09:05 Dose: 50 mcg Documented By: JOHNNY Labs 05/02/24 11:22 05/05/24 04:04 Labs: Laboratory Results - last 24 hr 05/04/24 05/04/24 05/05/24 16:23 19:56 04:04 Anion Gap 14 Estim Creat Clear Calc 73.7 Estimated GFR > 60 POC Glucose 143 H 227 H Random Glucose 123 H Calcium 8.9 05/05/24 05/05/24 06:49 10:57 Anion Gap Estim Creat Clear Calc Estimated GFR POC Glucose 111 234 H Random Glucose Calcium Assessment and Plan (1) Edema of both legs: Status: Acute Plan 68-year-old male with history of hypertension, insulin-dependent type 2 diabetes, CKD stage 3, diabetic polyneuropathy, hyperlipidemia, mood disorder, and lumbar stenosis here with swollen legs Acute on chronic HFpEF with leg edama in setting of chronic lymphadema -IV diuressis x 1 more day and then change to PO -monitor electrolytes Hypertension-uncontrolled -add Lisinopril 10 and montirong bmp adjusted amlodipine to 5 mg qd insulin-dependent type 2 diabetes -He on trulicity weekly not available in the hospital, metformin and tresib -change Tresiba to Lantus at 25 (50 at home), hold metformin, contiunue Sitagliptin -ssi, diabetic diet CKD stage 3, creatine is within normal HLD -Statin chronic pain continue oxycodone celecoxib, PT eval before dc ongoing hospitilsation need-Acute on chronic HFpEF with leg edama in setting of chronic lymphadema-need iv lasix ,i/o and respiratory monitering Quality Stroke Does the patient have a stroke diagnosis?: No VTE Prior VTE?: No VTE Risk Level:: Medical - moderate - high VTE Device Contraindication: Treatment Not Indicated VTE Drug Contraindication: N/A - Med Ordered
[2024-05-05 16:33] LABS: Glucose, Whole Blood 172 mg/dL (60-115)
[2024-05-05] MEDS: Enoxaparin Sodium 40 MG/0.4 ML SYRINGE SUBCUT (17:26)
[2024-05-05 20:53] LABS: Glucose, Whole Blood 200 mg/dL (60-115)
[2024-05-05] MEDS: Atorvastatin Calcium 20 MG TABLET PO (20:59)
[2024-05-05] MEDS: Insulin Glargine,Hum.rec.anlog 100 UNIT/ML 10 ML VIAL 25 UNIT SUBCUT (21:00)
[2024-05-05] MEDS: Cyclobenzaprine HCl 10 MG TABLET PO (21:04)
[2024-05-05] MEDS: Latanoprost 0.005 % Ophth Sol 2.5 ML DROPS 1 DROP EYE-BOTH (21:06)
[2024-05-05] MEDS: Nystatin Powder 15 GM BOTTLE 1 APPL TOPICAL (21:09)
[2024-05-06] VITALS (7 sets, daily range): BP systolic 119–191; BP diastolic 64–90; PULSE 70–88; RESP 18–21; TEMP 36.4–37.6; O2SAT 94
[2024-05-06] MEDS: oxyCODONE HCl Immed Release 5 MG TABLET 10 MG PO ×3 (03:25→16:06)
[2024-05-06 06:59] LABS: Glucose, Whole Blood 123 mg/dL (60-115)
[2024-05-06 07:05] LABS: Anion Gap 14 (12-20); Blood Urea Nitrogen 35 mg/dL (9-16); Carbon Dioxide 27 mmol/L (22-29); Chloride 106 mmol/L (96-108); Creatinine Clr Calc Pharmacy 65.2; Estimated Glomerular Filt Rate 55; Glucose Random 132 mg/dL (60-115); Potassium 4.2 mmol/L (3.3-5.1); Sodium 143 mmol/L (135-145)
[2024-05-06 07:09] LABS: Hematocrit 41.8 % (42.0-52.0); Hemoglobin 13.4 g/dl (14.0-18.0); Mean Corpuscular HGB Conc 32.1 g/dl (31.0-36.0); Mean Corpuscular Hemoglobin 27.6 pg (27.0-33.0); Mean Platelet Volume 12.8 fL (9.4-12.4); Platelet Count 181 X10*3/uL (160-400); Red Blood Count 4.86 X10*6/uL (4.60-5.80); Red Cell Distribution Width 16.9 % (11.0-16.0); White Blood Count 6.9 X10*3/uL (4.8-10.8)
[2024-05-06] MEDS: Furosemide 40 MG/4 ML VIAL IVPUSH (08:46)
[2024-05-06] MEDS: amLODIPine Besylate 2.5 MG TABLET PO (08:46)
[2024-05-06] MEDS: Fenofibrate 160 MG TABLET PO (08:47)
[2024-05-06] MEDS: 0.9 % Sodium Chloride Flush 3 ML SYRINGE IVFLUSH ×2 (08:47→16:08)
[2024-05-06] MEDS: Tamsulosin HCL 0.4 MG CAPSULE PO (08:47)
[2024-05-06] MEDS: SITagliptin Phosphate 25 MG TABLET PO (08:47)
[2024-05-06] MEDS: Cholecalciferol (Vitamin D3) 25 MCG TABLET 50 MCG PO (08:47)
[2024-05-06] MEDS: lisinopriL 10 MG TABLET PO (08:47)
[2024-05-06] MEDS: Nystatin Powder 15 GM BOTTLE 1 APPL TOPICAL ×2 (08:54→16:07)
[2024-05-06 09:05] LABS: Appearance Urine Clear; Color Urine Yellow; Glucose Urine UA 100 mg/dL (Negative); Leukocyte Esterase Urine Negative (Negative); Nitrite Urine Negative (Negative); PH 5.5 (5.0-9.0); UMIC TRIGGER UACC YES; Urine Blood Small (1+) (Negative); Urine Ketones Negative (Negative); Urine Protein 30 (1+) mg/dL (Neg-Trace)
[2024-05-06 09:08] LABS: Bacteria Urine None Seen (None Seen); Hyaline Casts Urine 0-2 /LPF (0-2); Squamous Epithelial Cell Urine 0-2 /HPF (0-2); WBC Urine 0-5 /HPF (0-5)
[2024-05-06 10:57] LABS: Glucose, Whole Blood 182 mg/dL (60-115)
[2024-05-06] MEDS: Insulin Lispro 100 UNIT/ML 3 ML VIAL SUBCUT ×2 (11:53→16:33)
--- NOTE | 2024-05-06 12:08 | HO.PM.IMPN ---
Subjective Subjective Date of Service: 05/06/24 Interval History: chf excerebation Review of Systems sob seems improved significantly no chest pain Physical Exam Vital Signs: Vital Signs: Last Vital Signs Temp 99.6 F 05/06/24 10:56 Pulse 79 05/06/24 10:56 Resp 18 05/06/24 10:56 BP 119/66 05/06/24 10:56 Pulse Ox 94 05/06/24 10:56 O2 Del Method Room Air 05/06/24 10:56 BMI result Body Mass Index 36.7 General: AO X 3, no acute distress Resp:air entry fair ,yaakov or wheezing CVS: S1,S2,RRR GI: +BS, NT, no distention Skin: No rash no edema Neuro: motor grossly intact Psych: appropriate affect Objective Data Active Medications Acetaminophen (Acetaminophen 325 Mg Tablet) 650 mg PO Q6H PRN PRN Reason: Pain, Mild (Pain Scale 1-3), fever or headache Last Admin: 05/05/24 14:13 Dose: 650 mg Documented By: SAVITA Al Hydroxide/Mg Hydroxide (Magnesium Hydrox/Alum Hydrox 30 Ml Oral.Susp) 30 ml PO Q4H PRN PRN Reason: Heartburn Amlodipine Besylate (Amlodipine Besylate 2.5 Mg Tablet) 2.5 mg PO DAILY [facility]; Protocol Last Admin: 05/06/24 08:46 Dose: 2.5 mg Documented By: CALEB Aspirin (Aspirin Enteric Coated 81 Mg Tablet.Dr) 81 mg PO DAILY@0800 [facility] Last Admin: 05/06/24 08:23 Dose: Not Given Documented By: CALEB Non-Admin Reason: Physician Held Med Atorvastatin Calcium (Atorvastatin Calcium 20 Mg Tablet) 20 mg PO DAILY@1999 [facility] Last Admin: 05/05/24 20:59 Dose: 20 mg Documented By: KELLI Calcium Carbonate (Calcium Carbonate 750 Mg Tab.Chew) 750 mg PO Q4H PRN PRN Reason: Heartburn Cyclobenzaprine HCl (Cyclobenzaprine Hcl 10 Mg Tablet) 10 mg PO DAILY@1999 [facility] Last Admin: 05/05/24 21:04 Dose: 10 mg Documented By: KELLI Enoxaparin Sodium (Enoxaparin Sodium 40 Mg/0.4 Ml Syringe) 40 mg SUBCUT Q24H [facility] Last Admin: 05/05/24 17:26 Dose: 40 mg Documented By: BROB Fenofibrate (Fenofibrate 160 Mg Tablet) 160 mg PO DAILY@0800 [facility] Last Admin: 05/06/24 08:47 Dose: 160 mg Documented By: CALEB Furosemide (Furosemide 40 Mg/4 Ml Vial) 40 mg IVPUSH DAILY [facility]; Protocol Last Admin: 05/06/24 08:46 Dose: 40 mg Documented By: CALEB Glucose (Glucose Gel 15 Gm Gel..Gram.) 15 gm PO Q15M PRN; Protocol PRN Reason: per Hypoglycemia Standing Ord. Dextrose (D10) 250 mls @ 750 mls/hr IV Q15M PRN; Protocol PRN Reason: per Hypoglycemia Standing Ord. Insulin Glargine (Insulin Glargine,Hum.Rec.Anlog 100 Unit/Ml 10 Ml Vial) 25 unit SUBCUT BEDTIME [facility] Last Admin: 05/05/24 21:00 Dose: 25 unit Documented By: KELLI Insulin Human Lispro (Insulin Lispro 100 Unit/Ml 3 Ml Vial) 0 unit SUBCUT QIDACHS [facility]; Protocol Last Admin: 05/06/24 11:53 Dose: 2 unit Documented By: CALEB Latanoprost (Latanoprost 0.005 % Ophth Maria Eugenia 2.5 Ml Drops) 1 drop EYE-BOTH BEDTIME [facility] Last Admin: 05/05/24 21:06 Dose: 1 drop Documented By: KELLI Lisinopril (Lisinopril 10 Mg Tablet) 10 mg PO DAILY [facility]; Protocol Last Admin: 05/06/24 08:47 Dose: 10 mg Documented By: CALEB Magnesium Hydroxide (Milk Of Magnesia 30 Ml Oral.Susp) 30 ml PO DAILY PRN PRN Reason: Constipation Melatonin (Melatonin 3 Mg Tablet) 6 mg PO BEDTIME PRN PRN Reason: Insomnia Non-Formulary Medication (Dulaglutide [Trulicity]) 1.5 mg SUBCUT [facility] Non-Formulary Medication (Icosapent Ethyl [Vascepa]) 2 gm PO BID@0800,2000 [facility] Nystatin (Nystatin Powder 15 Gm Bottle) 1 appl TOPICAL TID [facility]; Protocol Last Admin: 05/06/24 08:54 Dose: 1 appl Documented By: CALEB Ondansetron HCl (Ondansetron Hcl 4 Mg/2 Ml Vial) 4 mg IVPUSH Q8H PRN PRN Reason: Nausea and Vomiting Oxycodone HCl (Oxycodone Hcl Immed Release 5 Mg Tablet) 10 mg PO Q6H PRN PRN Reason: Pain, Severe (Pain Scale 7-10) Last Admin: 05/06/24 09:31 Dose: 10 mg Documented By: CALEB Polyethylene Glycol (Polyethylene Glycol 3350 17 Gm Powd.Pack) 17 gm PO DAILY PRN PRN Reason: Constipation Sitagliptin Phosphate (Sitagliptin Phosphate 25 Mg Tablet) 25 mg PO DAILY@0800 [facility] Last Admin: 05/06/24 08:47 Dose: 25 mg Documented By: CALEB Sodium Chloride (0.9 % Sodium Chloride Flush 3 Ml Syringe) 3 ml IVFLUSH QSHIFT [facility] Last Admin: 05/06/24 08:47 Dose: 3 ml Documented By: CALEB Tamsulosin HCl (Tamsulosin Hcl 0.4 Mg Capsule) 0.4 mg PO DAILY [facility] Last Admin: 05/06/24 08:47 Dose: 0.4 mg Documented By: CALEB Vitamin D (Cholecalciferol (Vitamin D3) 25 Mcg Tablet) 50 mcg PO DAILY [facility] Last Admin: 05/06/24 08:47 Dose: 50 mcg Documented By: CALEB Labs 05/06/24 06:10 05/06/24 06:10 Labs: Laboratory Results - last 24 hr 05/05/24 05/05/24 05/06/24 16:26 20:49 06:10 MCV 86.0 MCH 27.6 MCHC 32.1 RDW 16.9 H Plt Count 181 MPV 12.8 H Absolute Nucleated RBC 0.000 Nucleated RBC % (auto) 0.0 Anion Gap 14 Estim Creat Clear Calc 65.2 Estimated GFR 55 POC Glucose 172 H 200 H Random Glucose 132 H Calcium 9.0 Urine Color Urine Appearance Urine pH Ur Specific [place] Urine Protein Urine Glucose (UA) Urine Ketones Urine Blood Urine Nitrite Ur Leukocyte Esterase Urine RBC Urine WBC Ur Squamous Epith Cells Urine Bacteria Hyaline Casts 05/06/24 05/06/24 05/06/24 06:49 08:51 10:48 MCV MCH MCHC RDW Plt Count MPV Absolute Nucleated RBC Nucleated RBC % (auto) Anion Gap Estim Creat Clear Calc Estimated GFR POC Glucose 123 H 182 H Random Glucose Calcium Urine Color Yellow Urine Appearance Clear Urine pH 5.5 Ur Specific [place] 1.020 Urine Protein 30 (1+) H Urine Glucose (UA) 100 H Urine Ketones Negative Urine Blood Small (1+) H Urine Nitrite Negative Ur Leukocyte Esterase Negative Urine RBC 11-20 H Urine WBC 0-5 Ur Squamous Epith Cells 0-2 Urine Bacteria None Seen Hyaline Casts 0-2 Assessment and Plan (1) Edema of both legs: Status: Acute Plan 68-year-old male with history of hypertension, insulin-dependent type 2 diabetes, CKD stage 3, diabetic polyneuropathy, hyperlipidemia, mood disorder, and lumbar stenosis here with swollen legs Acute on chronic HFpEF with leg edama in setting of chronic lymphadema total 2.2liter leg edema improving will switch to po lasix Hypertension-uncontrolled continue amlodipine and lisinopril. insulin-dependent type 2 diabetes -He on trulicity weekly not available in the hospital, metformin and tresib -change Tresiba to Lantus at 25 (50 at home), hold metformin, contiunue Sitagliptin -ssi, diabetic diet CKD stage 3, creatine is within normal HLD -Statin chronic pain continue oxycodone ? urinary retention: no pain or hemtauria added flomax pvr PT eval before dc ongoing hospitilsation need-Awaiting placement Quality Stroke Does the patient have a stroke diagnosis?: No VTE Prior VTE?: No VTE Risk Level:: Medical - moderate - high VTE Device Contraindication: Treatment Not Indicated VTE Drug Contraindication: N/A - Med Ordered
--- NOTE | 2024-05-06 12:31 | MHC.CM.PN ---
Per MD in [facility], Patient is medically cleared for dc to SNF/STR today. Patient will dc to [facility] today at 6PM, via [facility] ([facility] transport auth is [id number]). CM addressed IMM with Patient, at bedside and he wishes to inform his family himself, of the dc plan.
--- NOTE | 2024-05-06 12:34 | PM.DS ---
DS: Providers Provider Date of Service: 05/06/24 Date of admission: 05/02/24 16:37 Date of discharge: 05/06/24 Primary care physician: Tram Álvarez MD Consults: 05/02/24 18:38 Consult to Wound Care Routine Reason for consultation: Pressure injury to sacrum 05/06/24 08:13 Consult to Urology Routine Consulting Provider: [facility] Reason for consultation: hemturia/urinary retention Has provider been notified: No Attending physician on discharge: Rufus Velasquez Discharging clinician: Rufus Velasquez DS: Diagnosis Discharge Diagnosis (1) Edema of both legs: Status: Acute DS: Summary Hospital Course Hospital Course: HPI:68-year-old male with multiple chronic medical issues as listed below including chronic lymphadema. He is presenting with increasing leg edam for 4 weeks without component of shortness of breath, normal BNP. US of the leg are negative for DVT. CXR show no evidence of pulmonary edema. He lives alone and uses a walker and has been falling frequent and has multiple bruses Hospital course: Patient was admitted to the hospital because of bilateral leg edema: Found to have acute on chronic HFpEF : Started on IV Lasix, patient diuresed well, edema improved significantly. Going to the rehab with his home Lasix dose. Mild prerenal azotemia: Possible related to diuresis, also mild urinary retention: Patient is urinating well on his own currently( no pain or hematuria), monitor for urinary retention in rehab, will add Flomax, consider urology evaluation outpatient. dm : fs flactuating triseba adjusted to 35 units at bedtime. moniter fs and further management outpatient. Hypotension: Patient patient was on lisinopril 10 mg during this hospitalization, considering mild prerenal azotemia will adjust Benzapril to 10 mg which can be up titrated in rehab as needed for blood pressure in addition patient was started on amlodipine 2.5 mg daily meanwhile . moniter renal function and electrolytes in 3-4 days. hold celecoxib or nephrotoxic medications. patient will be going to rehab ,possibly benefit from less than 30 days stay. plan: Mild prerenal azotemia:check bmp in 3-4 days dibetes:fs flactuating -triseba adjusted to 35 units at bedtime. adjusted Benzapril to 10 mg which can be up titrated in rehab(once bmp checked and renal function allows) as needed for blood pressure in addition patient was started on amlodipine 2.5 mg daily meanwhile . chf education given , if weight gain 2 lb or more in a week then might need out patiently Lasix doses adjustment. assessment and plan coordination time spent 40 min. Time Attestation Total time managing care of this patient today: 40 mintues. Discharge Coordination Time (in mins): 40 min Quality: Safe Use of Opioids Does Pt have an Active Cancer Diagnosis on the Problem List?: No Quality: Stroke Does the patient have a stroke diagnosis?: No Physical Exam Vital Signs: Vital Signs: Last Vital Signs Temp 99.6 F 05/06/24 10:56 Pulse 79 05/06/24 10:56 Resp 18 05/06/24 10:56 BP 119/66 05/06/24 10:56 Pulse Ox 94 05/06/24 10:56 O2 Del Method Room Air 05/06/24 10:56 BMI result Body Mass Index 36.7 General: AO X 3, no acute distress Resp:air entry fair ,no rales or wheezing CVS: S1,S2,RRR GI: +BS, NT, no distention Skin: No rash,no edema Neuro: motor grossly intact Psych: appropriate affect DS: Data Data Completed and Pending Completed studies during hospitalization [Text1]: Procedures Inspection of Gallbladder, Percutaneous Endoscopic Approach (09/18/23) Introduction of Anesthetic Agent into Peripheral Nerves and Plexi, Percutaneous Approach (05/07/23) Repair Left Upper Leg Tendon, Open Approach (05/07/23) Resection of Gallbladder, Open Approach (09/18/23) Labs on day of discharge: Laboratory Results - last 24 hr 05/05/24 05/05/24 05/06/24 16:26 20:49 06:10 WBC 6.9 RBC 4.86 Hgb 13.4 L Hct 41.8 L MCV 86.0 MCH 27.6 MCHC 32.1 RDW 16.9 H Plt Count 181 MPV 12.8 H Absolute Nucleated RBC 0.000 Nucleated RBC % (auto) 0.0 Sodium 143 Potassium 4.2 Chloride 106 Carbon Dioxide 27 Anion Gap 14 BUN 35 H Creatinine 1.30 Estim Creat Clear Calc 65.2 Estimated GFR 55 POC Glucose 172 H 200 H Random Glucose 132 H Calcium 9.0 Urine Color Urine Appearance Urine pH Ur Specific Bradley Urine Protein Urine Glucose (UA) Urine Ketones Urine Blood Urine Nitrite Ur Leukocyte Esterase Urine RBC Urine WBC Ur Squamous Epith Cells Urine Bacteria Hyaline Casts 05/06/24 05/06/24 05/06/24 06:49 08:51 10:48 WBC RBC Hgb Hct MCV MCH MCHC RDW Plt Count MPV Absolute Nucleated RBC Nucleated RBC % (auto) Sodium Potassium Chloride Carbon Dioxide Anion Gap BUN Creatinine Estim Creat Clear Calc Estimated GFR POC Glucose 123 H 182 H Random Glucose Calcium Urine Color Yellow Urine Appearance Clear Urine pH 5.5 Ur Specific Bradley 1.020 Urine Protein 30 (1+) H Urine Glucose (UA) 100 H Urine Ketones Negative Urine Blood Small (1+) H Urine Nitrite Negative Ur Leukocyte Esterase Negative Urine RBC 11-20 H Urine WBC 0-5 Ur Squamous Epith Cells 0-2 Urine Bacteria None Seen Hyaline Casts 0-2 Imaging Chest x-ray: Radiologist's impression: ITS Impressions Chest X-Ray 05/02/24 09:48 IMPRESSION: 1. Bilateral low lung volumes. 2. Stable interstitial prominence. 3. Left basilar radiopacity potentially representing atelectasis. 4. Curvilinear radiopaque catheter like density projects over the mid to distal portion of the right clavicle into the supraclavicular region of unclear etiology, correlation with physical exam. Electronically signed by: Reece Eugene MD 05/02/2024 12:01 PM EDT Venous Duplex 05/02/24 10:00 IMPRESSION: 1. No evidence of deep venous thrombosis involving the bilateral lower extremities. 2. In the region of the patient's palpable findings at the anterior left knee, there is a varicosity with internal echogenicity which could represent superficial thrombophlebitis. 3. Mild bilateral lower extremity subcutaneous edema. Electronically signed by: Duong Watson MD 05/02/2024 10:34 AM EDT Discharge Plan Discharge Anticipated Discharge Date/Time: 05/06/24 12:19 Patient Disposition: Xfer SNF Discharge Diagnosis: chf excerebation,urianry retention [facility] Tram Royal MD [Primary Care Provider] - 1 Week Discharge Medications: New amlodipine 2.5 mg Tablet 2.5 mg PO DAILY Qty: 1 0RF Protocol: Hold for SBP< HOLD for SBP < : 90 tamsulosin 0.4 mg Capsule 0.4 mg PO DAILY Qty: 1 0RF polyethylene glycol 3350 17 gram Powder In Packet 17 g PO DAILY PRN (Reason: Constipation) Qty: 1 0RF nystatin 100,000 unit/gram Powder 1 appl topical TID Qty: 1 0RF Protocol: Apply to: Apply to: stomach fold Continued (DME) walker Misc See Rx Instructions .ROUTE .MEDSUPPLY Qty: 1 0RF Rx Instructions: As directed ([facility]) Ultra-Light Rollator Misc See Rx Instructions .ROUTE .MEDSUPPLY Qty: 1 0RF Rx Instructions: with seat ([facility]) sock aid See Rx Instructions .Route .MEDSUPPLY Qty: 1 0RF Rx Instructions: As directed ([facility]) leg orthopedic physical therapist See Rx Instructions .Route .MEDSUPPLY Qty: 1 0RF Rx Instructions: As directed ([facility]) FreeStyle Tirso 14 Day [place] Misc See Rx Instructions .ROUTE .MEDSUPPLY Qty: 1 0RF Rx Instructions: As directed ([facility]) Shower Chair Misc See Rx Instructions .Route Qty: 1 0RF Rx Instructions: As directed ([facility]) Brace,wrist Misc See Rx Instructions .Route Qty: 1 0RF Rx Instructions: right hand wrist splint ([facility]) FreeStyle Tirso 2 Sensor Kit See Rx Instructions .Route Qty: 2 11RF Rx Instructions: As directed ([facility]) pen needle, diabetic 31 gauge x 5/16 needle See Rx Instructions subcut .MEDSUPPLY Qty: 200 4RF Rx Instructions: five times a day cholecalciferol (vitamin D3) 50 mcg (2,000 unit) tablet 50 mcg PO DAILY Qty: 90 0RF ([facility]) bed rail See Rx Instructions .Route .MEDSUPPLY Qty: 1 0RF Rx Instructions: As directed ([facility]) bedside commode Kit See Rx Instructions .Route Qty: 1 0RF Rx Instructions: As directed ([facility]) adult diapers pull-ups X-large See Rx Instructions .Route .MEDSUPPLY Qty: 240 11RF Rx Instructions: As directed ([facility]) wipes See Rx Instructions .Route .MEDSUPPLY Qty: 400 11RF Rx Instructions: As directed (DME) compr.stocking,knee,long,x-lrg Misc See Rx Instructions .Route Qty: 12 0RF Rx Instructions: As [id number] [id number] (DME) hospital bed Kit See Rx Instructions .Route Qty: 1 0RF Rx Instructions: As directed- full electric oxycodone 10 mg tablet 10 mg PO Q6H PRN (Reason: pain) 30 Days Qty: 120 0RF Rx Instructions: Partial Fill upon patient request. (DME) wheelchair electric See Rx Instructions .Route .MEDSUPPLY Qty: 1 0RF Rx Instructions: As directed latanoprost 0.005 % drops 1 drp ophthalmic (eye) BEDTIME Rx Instructions: 1 drop into both eyes insulin aspart U-100 100 unit/mL (3 mL) Insulin Pen 1 sliding scale dose subcut TIDAC Protocol: Insulin Correction Scale Less than or equal to 110 ---- Give (units): 0 111 to 150 Give (units): 0 151 to 200 Give (units): 2 201 to 250 Give (units): 4 251 to 300 Give (units): 6 301 to 350 Give (units): 8 Greater than 350 Give (units): 10 Call MD if Blood Glucose > : 350 cyclobenzaprine 10 mg tablet 10 mg PO DAILY@1999 atorvastatin 20 mg tablet 20 mg PO DAILY@1999 hydralazine 25 mg tablet 25 mg PO TID@0800,1300,1999 aspirin 81 mg tablet,delayed release (DR/EC) 81 mg PO DAILY@0800 furosemide 20 mg tablet 40 mg PO DAILY metformin 500 mg tablet extended release 24 hr 500 mg PO BID@0800,1999 fenofibrate nanocrystallized 145 mg tablet 145 mg PO DAILY@0800 Januvia 25 mg tablet 25 mg PO DAILY@0800 icosapent ethyl [Vascepa] 1 gram capsule 2 g PO BID@799,1999 Trulicity 1.5 mg/0.5 mL pen injector 1.5 mg subcut POSADAS (DME) blood pressure monitor Kit See Rx Instructions .Route Qty: 1 0RF Rx Instructions: As directed (DME) chair lift See Rx Instructions .Route .MEDSUPPLY Qty: 1 0RF Rx Instructions: As directed Changed benazepril 40 mg tablet 10 mg PO DAILY@1999 Qty: 1 0RF insulin degludec [Tresiba FlexTouch U-200] 200 unit/mL (3 mL) insulin pen 35 unit subcut BEDTIME Qty: 1 0RF Held celecoxib 200 mg capsule 200 mg PO BID@799,1999 Hold Instructions: Resume on 05/14/24. Discharge Orders: Discharge Order (Routine); Ordered 05/06/24 Ordered By: Rufus Velasquez Diet: Advance to usual diet Activity on Discharge: As tolerated Stand Alone Forms: Patient Portal Discharge page Print Language: Nauruan Other Ambulatory Orders: Basic Metabolic Panel (Routine) Timeframe: 3 Days Facility: [facility] - Location: Laboratory Ordered By: Rufus Velasquez Care Plan Goals: Patient was admitted to the hospital because of bilateral leg edema: Found to have acute on chronic HFpEF : Started on IV Lasix, patient diuresed well, likely demand improving. Going to the rehab with his home Lasix dose. Mild prerenal azotemia: Possible related to diuresis, also mild urinary retention: Patient is urinating well on his own currently, monitor for urinary retention in rehab, will add Flomax, consider urology evaluation outpatient. chf education given , if weight gain 2 lb or more in a week then might need out patiently Lasix doses adjustment. Hypotension: Patient patient was on lisinopril 10 mg during this hospitalization, considering mild prerenal azotemia will adjust Benzapril to 10 mg which can be up titrated in rehab as needed for blood pressure in addition patient was started on amlodipine 2.5 mg daily meanwhile . moniter renal function and electrolytes in 3-4 days. hold celecoxib or nephrotoxic medications. patient will be going to rehab ,possibly benefit from less than 30 days stay. Health Concerns: as above. Plan of Treatment: as above. Assessment: as above.
[2024-05-06 16:15] LABS: Glucose, Whole Blood 151 mg/dL (60-115)
[2024-05-06] MEDS: Enoxaparin Sodium 40 MG/0.4 ML SYRINGE SUBCUT (18:25)
== END 2024-05-06 19:00 | disposition skilled nursing facility (03) | DRG 291 ==
LOC: HO.ED 15:23 → HO.EDOVER 16:47 → HO.IMC 05-03 07:53
PROVIDERS: Internal Medicine; Admitting Provider Internal Medicine; Emergency Provider Emergency Medicine; PCP Internal Medicine; Visit Provider Internal Medicine
DX: I13.0 Hypertensive heart and chronic kidney disease with heart failure and stage 1 through stage 4 chronic kidney disease, or unspecified chronic kidney disease (principal); I50.33 Acute on chronic diastolic (congestive) heart failure; N18.30 Chronic kidney disease, stage 3 unspecified; E78.5 Hyperlipidemia, unspecified; G89.29 Other chronic pain; E11.22 Type 2 diabetes mellitus with diabetic chronic kidney disease; I89.0 Lymphedema, not elsewhere classified; L89.152 Pressure ulcer of sacral region, stage 2; E11.42 Type 2 diabetes mellitus with diabetic polyneuropathy; Z79.82 Long term (current) use of aspirin; Z79.4 Long term (current) use of insulin; Z79.85 Long-term (current) use of injectable non-insulin antidiabetic drugs; Z79.899 Other long term (current) drug therapy
CPT/HCPCS: 36415; 71046; 80048; 80053; 81001; 82947; 83880; 84484; 85025; 85027; 93005; 93970; 97110; 97162; 97166; 97530; 99285; J1650; J1940; J2270

== ENCOUNTER → 2024-05-02 09:48 | Outpatient (BNV) | payer OTHER, SELFPAY | PROVIDERS: Admitting Provider Internal Medicine; Emergency Provider Emergency Medicine; PCP Internal Medicine; Visit Provider Internal Medicine | DX: R07.9 Chest pain, unspecified (principal) | CPT/HCPCS: 93010 ==

== ENCOUNTER → 2024-05-02 16:37 | Outpatient (BNV) | payer OTHER, SELFPAY | PROVIDERS: Admitting Provider Internal Medicine; Emergency Provider Emergency Medicine; PCP Internal Medicine; Visit Provider Internal Medicine | DX: R60.0 Localized edema (principal) | CPT/HCPCS: 99223; 99231; 99232; 99233; 99239 ==

== ENCOUNTER 2024-05-19 10:00 | Outpatient (AMB) | payer OTHER, SELFPAY ==
--- NOTE | 2024-05-19 10:05 | A.OFFPC_ITS ---
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: No Accompanied by: Family/Other Allergies Penicillins [PENICILLINS] Allergy (Severe, Verified 05/19/24 10:29) RASH jay pepper Allergy (Intermediate, Verified 05/19/24 10:29) Rash pepper (genus Capsicum) Adverse Reaction (Intermediate, Verified 05/19/24 10:29) rashes Medication List - Last Reconciled 05/19/24 by Tram Álvarez MD [adult diapers pull-ups As directed] amlodipine 2.5 mg See Protocol PO DAILY aspirin 81 mg PO DAILY@0800 atorvastatin 20 mg PO DAILY@1999 [bed rail As directed] benazepril 10 mg (1/4 x 40 mg) PO DAILY@1999 blood pressure monitor As directed Brace,wrist right hand wrist splint celecoxib 200 mg PO BID@799,1999 [chair lift As directed] cholecalciferol (vitamin D3) 50 mcg PO DAILY commode (bedside commode) As directed compr.stocking,knee,long,x-lrg As mbirczzw-19-68 mmhg cyclobenzaprine 10 mg PO DAILY@1999 dulaglutide (Trulicity) 1.5 mg subcut POSADAS fenofibrate nanocrystallized 145 mg PO DAILY@0800 flash glucose scanning reader (LionsideStyle Tirso 14 Day [place]) As directed flash glucose sensor (FreeStyle Tirso 2 Sensor kit) As directed furosemide 40 mg PO DAILY hospital bed As directed- full electric hydralazine 25 mg PO TID@0800,1300,1999 icosapent ethyl (Vascepa) 2 grams PO BID@0800,1999 insulin aspart U-100 1 sliding scale dose See Protocol subcut TIDAC insulin degludec (Tresiba FlexTouch U-200 insulin) 35 units (0.175 mL) subcut BEDTIME latanoprost 0.005% 1 drp ophthalmic (eye) 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 As directed] lidocaine 5% 1 patch topical DAILY metformin ER 500 mg PO BID@799,1999 nystatin 1 appl See Protocol topical TID oxycodone 10 mg PO Q6H PRN 30 days pen needle, diabetic five times a day polyethylene glycol 3350 17 grams PO DAILY PRN Shower Chair As directed sitagliptin phosphate (Januvia) 25 mg PO DAILY@0800 [sock aid As directed] tamsulosin 0.4 mg PO DAILY walker As directed walker (Ultra-Light Rollator misc) with seat [wheelchair electric As directed] [wipes As directed] Tobacco use date assessed: 08/11/23 Fall risk assessment: 2 + Falls in past year Last assessed Fall Risk: 05/19/24 Dental Screening Dental Screen Date: 08/11/23 HPI HPI Comments History of Present Illness Details This is a 68-year-old male with diabetes mellitus type 2 on long-term current use of insulin complicated by polyneuropathy, lumbar stenosis, right arm weakness and right shoulder pain that comes today in a wheelchair accompanied by louie Morris and has sister Lydia at the phone for his physical exam. Last A1c done 04/15/2024 was 7.5% and some adjustments in his insulin were done. Diabetic eye exam was done 2023. Last colonoscopy was over 10 years ago and will be refer through open access. He complains of right shoulder pain associated with right arm weakness that started few months ago. He denies previous trauma to the area even though he has had multiple falls. X-ray and neck and shoulder would be done and he will be referred to physical therapy. He is not wheelchair-bound due to chronic back pain secondary to lumbar stenosis and the pain radiates to the legs and has left leg weakness not able to walk. He is currently in recall rehab care after being discharged from the hospital 05/06/2024 and received physical therapy at least once a day but admits that there is a specific physical therapist that he does not want her to touch him therefore does not complete physical therapy every day. He does have left sciatica with left leg numbness that has been aggravated to the point of being weak and not able to walk and I order an MRI 04/15/2024 which is still pending for approval of insurance. Family members such as sister Lydia which was at the phone and louie Renetta had many questions regarding his health and his decline in function. I answer every question and spent 60 minutes in this patient today. [facility] Medical History (Updated 05/19/24 @ 12:31 by Tram Álvarez MD) Acute cholecystitis due to biliary calculus Diabetes mellitus Essential hypertension Numbness and tingling in right hand Numbness and tingling in left hand Knee osteoarthritis Mild recurrent major depression Mixed hyperlipidemia Right shoulder pain Right knee pain Left knee pain CKD (chronic kidney disease), stage III Low back pain Multiple falls Syncope DAVINA (acute kidney injury) Obesity due to excess calories Lumbar spondylosis Proteinuria Arthritis Hypertriglyceridemia Hypertension Diabetic polyneuropathy associated with type 2 diabetes mellitus Type 2 diabetes mellitus with other diabetic kidney complication Lumbar stenosis Surgical History History of cholecystectomy (~09/19/23) History of surgery on lower extremity History of total left knee replacement (TKR) S/P evacuation of hematoma Hx of cataract surgery History of lumbar surgery Hx of eye surgery History of back surgery Family History (Updated 05/19/24 @ 11:00 by Tram Álvarez MD) Father Medical history unknown Mother Hypertension Maternal Grandmother Medical history unknown Social History Household Members: None Household Members Other:: self Housing: Apartment Are you a primary hospice care sales consultant to a significant other at home: No Do you presently have visiting nurse or other home services: No (DESK [employer]OR) Alcohol intake: never Comment: final count is correct Patient Tobacco Use Status: Former Tobacco user Tobacco use type: Cigarette Years Smoked: 25 e-Cigarette/Vaping Use: Never Used Second Hand Smoke Exposure: No Advance Directives Date on File: 05/12/23 service: Yes Current occupational status: disabled Cognitive needs: Yes (walker) Hearing needs: No Vision needs: Yes (reading glasses) Questionnaire Thrive Questionnaire Date Thrive assessed: 05/03/24 I am a: Patient What is your living situation today?: I choose not to answer this question Within the past 12 months, did the food you bought not last and you didn't have the money to get more?: I choose not to answer this question Within the past 12 months, did you worry whether your food would run out before you got money to buy more?: I choose not to answer this question Do you have trouble paying for medicines?: I choose not to answer this question Do you have trouble getting transportation to medical appointments?: I choose not to answer this question Do you have trouble paying your heating and electricity bill?: I choose not to answer this question Do you have trouble taking care of your child, family member or friend?: I choose not to answer this question Do you have trouble with day-to-day activities such as bathing, preparing meals, shopping, managing finances, etc.?: I choose not to answer this question Are you interested in more education?: I choose not to answer this question Please select the resources that you would like help with: None Currently or been in a relationship where the following occur: I choose not to answer THRIVE Score: 0 AUDIT C Alcohol Use Questionnaire (AUDIT-C) 1. How often do you have a drink containing alcohol?: Never Total Score: 0 CHANDU-7 AMB Questionnaire CHANDU-7 Date CHANDU - 7 assessed: 08/11/23 Feeling nervous, anxious, or on edge: 0 = Not at all Not being able to stop or control worryin = Not at all Worrying too much about different things: 0 = Not at all Trouble relaxin = Not at all Being so restless that it is hard to sit still: 0 = Not at all Becoming easily annoyed or irritable: 0 = Not at all Feeling afraid as if something awful might happen: 0 = Not at all Total CHANDU-7 score (0-4 normal; 5-9 mild; 10-14 moderate; 15-21 severe): 0 Source: Developed by Drs. Jorge Hopson, Stacey Meza, Mario Garcia and colleagues, with an educational ahsan from [employer]. Review of Systems Const All systems reviewed & are unremarkable except as noted in HPI and below Card Denies chest pain at rest, Denies chest pain with activity, Denies edema, Denies irregular heart rhythm, Denies claudication, Denies dyspnea, Denies dyspnea on exertion, Denies orthopnea, Denies paroxysmal nocturnal dyspnea and Denies slow heart rate Resp Denies cough, Denies dyspnea and Denies dyspnea on exertion GI Denies abdominal pain, Denies change in bowel habits, Denies excessive flatus, Denies nausea and Denies vomiting Denies urinary hesitancy, Denies urinary incontinence and Denies urinary urgency Musc Reports back pain, Reports arthralgias, Reports limited range of motion, Reports numbness and Reports tingling Skin/Breast Denies bleeding lesions, Denies changing lesions and Denies rash Neuro Denies confusion, Reports numbness and Reports tingling Psych Denies confusion Physical exam (Primary Care) Vital Signs: Last Vital Signs BP 126/70 05/19/24 10:06 Tobacco/Smoking Status: Tobacco use Status Tobacco use date assessed 08/11/23 05/19/24 10:23 Patient Tobacco Use Status Former Tobacco user 05/19/24 10:23 Tobacco use type Cigarette 05/19/24 10:23 e-Cigarette/Vaping Use Never Used 05/19/24 10:23 Thrive Assessment: Date of Thrive Assessment Date Thrive assessed 05/03/24 05/19/24 10:23 Currently or been in a relationship where the following occur: I choose not to answer Const General: No confusion Nutritional Appearance: obese Orientation/consciousness: No confusion Limitations: wheelchair HENMT Head: Yes normal to inspection, Yes normocephalic and Yes atraumatic Ears: external ears normal Eyes General: appearance normal, both eyes and all related structures Eyelids: Yes eyelids normal Conjunctivae: conjunctivae normal Neck Neck: Yes normal visual inspection and Yes supple Resp Effort & Inspection: normal respiratory effort Auscultation: clear to auscultation bilaterally Cardio Jugular venous distension: no JVD Rate: regular rate Rhythm: regular rhythm Heart sounds: S1 normal heart sound present and S2 normal heart sound present GI Inspection: Yes normal to inspection Palpation (GI): Soft to palpation and nontender Auscultation: normal bowel sounds Skin General skin exam: no rashes or lesions noted Neuro General: No confusion Motor exam (neuro): Abnormal motor strength present (5/5 left arm and right leg,1/5 right arm and left leg) Extrem Right upper extremity: shoulder/upper arm Details: tenderness and abnormal ROM Left upper extremity: normal to inspection and full ROM Right lower extremity: edema Details: non-pitting and 1+ Left lower extremity: edema Details: non-pitting and 1+ Coding Level of Care Code Est Pt Level 4 (16960) Est Pt Prev Care >65y(34169) Diagnoses Physical exam Z00.00 Chronic right shoulder pain M25.511; G89.29 Chronicity: chronic Diabetic polyneuropathy associated with type 2 diabetes mellitus E11.42 Spinal stenosis of lumbar region with neurogenic claudication M48.062 Neurogenic claudication status: with neurogenic claudication Right arm weakness R29.898 Time Spent (min) 60 Assessment & Plan Assessment & Plan (1) Physical exam: Code(s): Z00.00 - Encounter for general adult medical examination without abnormal findings Category: Medical Plan: Repeat in a year. (2) Right shoulder pain: Code(s): M25.511 - Pain in right shoulder Category: Medical Qualifiers: Chronicity: chronic Qualified Code(s): M25.511 - Pain in right shoulder; G89.29 - Other chronic pain Plan: X-ray ordered. (3) Diabetic polyneuropathy associated with type 2 diabetes mellitus: Code(s): E11.42 - Type 2 diabetes mellitus with diabetic polyneuropathy Category: Medical Plan: Continue insulin. A1c goal is equal or less than 7%. (4) Lumbar stenosis: Code(s): M48.061 - Spinal stenosis, lumbar region without neurogenic claudication Category: Medical Qualifiers: Neurogenic claudication status: with neurogenic claudication Qualified Code(s): M48.062 - Spinal stenosis, lumbar region with neurogenic claudication Plan: MRI lumbar spine was ordered 04/15/2024 and still pending for approval for insurance. (5) Right arm weakness: Code(s): R29.898 - Other symptoms and signs involving the musculoskeletal system Category: Medical Plan: Start physical therapy. Orders: Orders Lipid Panel Today E78.5 - Hyperlipidemia, unspecified Comprehensive Johnson. Panel Fast Today E11.42 - Type 2 diabetes mellitus with diabetic polyneuropathy, Z79.4 - senior living (current) use of insulin XR shoulder RT min 2V Today M25.511 - Pain in right shoulder PT Evaluation and Treatment Today M25.511 - Pain in right shoulder Microalbumin, Random (w Creat) Today R80.9 - Proteinuria, unspecified XR cervical spine 2V Today M54.2 - Cervicalgia Referrals Open Access Screening Colonoscopy Referral Z12.12 - Encounter for screening for malignant neoplasm of rectum Medications: New ketotifen fumarate 0.025%(0.035%) (Allergy Eye (ketotifen)) administer at least 8 hours apart 1 drp ophthalmic (eye) BID 30 days PRN 5 mL 0RF allergy symptoms
[2024-05-19 10:06] VITALS: BP 126/70
== END 2024-05-19 11:26 | disposition home or self-care (01) ==
PROVIDERS: PCP Internal Medicine; Visit Provider Internal Medicine
DX: Z00.00 Encounter for general adult medical examination without abnormal findings (principal); M25.511 Pain in right shoulder; G89.29 Other chronic pain; E11.42 Type 2 diabetes mellitus with diabetic polyneuropathy; M48.062 Spinal stenosis, lumbar region with neurogenic claudication; R29.898 Other symptoms and signs involving the musculoskeletal system

== ENCOUNTER → 2024-05-19 10:00 | Outpatient (BNVA) | payer OTHER, SELFPAY | PROVIDERS: PCP Internal Medicine; Visit Provider Internal Medicine | DX: Z00.00 Encounter for general adult medical examination without abnormal findings (principal); M25.511 Pain in right shoulder; G89.29 Other chronic pain; E11.42 Type 2 diabetes mellitus with diabetic polyneuropathy; M48.062 Spinal stenosis, lumbar region with neurogenic claudication; R29.898 Other symptoms and signs involving the musculoskeletal system | CPT/HCPCS: 99212; 99397 ==

== ENCOUNTER 2024-05-27 13:46 | Outpatient (AMB) | payer OTHER, SELFPAY ==
--- NOTE | 2024-05-27 14:17 | MHC.OFFVIS ---
Intake Visit Reasons: [facility] Lymphedema Intake Note: Patient went to the emergency room 4 times in the last 3 months for bilateral leg swelling. States the swelling has gone down now. No other complaints. Accompanied by: Self / Same As Patient Allergies Penicillins [PENICILLINS] Allergy (Severe, Verified 05/27/24 14:21) RASH jay pepper Allergy (Intermediate, Verified 05/27/24 14:21) Rash pepper (genus Capsicum) Adverse Reaction (Intermediate, Verified 05/27/24 14:21) rashes HPI HPI [facility] Lymphedema: Details: Carlos, a pleasant 68 yo male patient, is presenting from his rehab facility on a referral for bilateral lower leg swelling. He has been seen in the ER several times for this. He has been given Lasix, and he states the swelling is down significantly. He currently is not able to stand/walk due to multiple falls and weakness. He also has a significant hx of lumbar stenosis. He is a former smoker and is a diabetic; his last A1C was on 04/15/24 and was 7.5%. Complaints include swelling of lower extremities and discoloration of bilateral feet. He has no concerns for his discoloration of his feet, he states he does not know when it started to occur. Patient denies any previous venous surgery or injections. Patient denies any history of DVT/ PE. Patient denies any history of phlebitis. Trial of compression includes - nothing They now present for vascular evaluation regarding their varicose veins. [facility] Medical History Acute cholecystitis due to biliary calculus Diabetes mellitus Essential hypertension Numbness and tingling in right hand Numbness and tingling in left hand Knee osteoarthritis Mild recurrent major depression Mixed hyperlipidemia Right shoulder pain Right knee pain Left knee pain CKD (chronic kidney disease), stage III Low back pain Multiple falls Syncope DAVINA (acute kidney injury) Obesity due to excess calories Lumbar spondylosis Proteinuria Arthritis Hypertriglyceridemia Hypertension Diabetic polyneuropathy associated with type 2 diabetes mellitus Type 2 diabetes mellitus with other diabetic kidney complication Lumbar stenosis Surgical History History of cholecystectomy (~09/19/23) History of surgery on lower extremity History of total left knee replacement (TKR) S/P evacuation of hematoma Hx of cataract surgery History of lumbar surgery Hx of eye surgery History of back surgery Family History Father Medical history unknown Mother Hypertension Maternal Grandmother Medical history unknown Social History Household Members: None Household Members Other:: self Housing: Apartment Are you a primary child day care provider to a significant other at home: No Do you presently have visiting nurse or other home services: 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[employer]) Alcohol intake: never Comment: final count is correct Patient Tobacco Use Status: Former Tobacco user Tobacco use type: Cigarette Years Smoked: 25 e-Cigarette/Vaping Use: Never Used Second Hand Smoke Exposure: No Advance Directives Date on File: 05/12/23 service: Yes Current occupational status: disabled Cognitive needs: Yes (walker) Hearing needs: No Vision needs: Yes (reading glasses) Review of Systems Const Reports as per HPI and Denies weakness ENT Reports Normal hearing present and Denies dizziness Card Reports as per HPI, Denies chest pain, Denies chest pain at rest, Denies chest pain with activity, Denies dyspnea and Denies dyspnea on exertion Resp Reports as per HPI, Denies cough, Denies dyspnea and Denies dyspnea on exertion GI Reports as per HPI, Denies abdominal pain, Denies nausea and Denies vomiting Musc Denies numbness Skin/Breast Reports as per HPI, Denies erythema and Denies wounds Neuro Reports Normal hearing present, Denies dizziness, Denies numbness, Denies Sensory deficit (Neuro) and Denies weakness Psych Reports no additional complaints Endo Reports no additional complaints Physical Exam Const General: healthy appearing and no acute distress Orientation/consciousness: patient oriented x3 HEENT Head: Yes normal to inspection Ears: hearing grossly normal bilaterally Mouth: Normal oral and palatal mucosa present Resp Effort & Inspection: normal respiratory effort and able to speak in complete sentences Auscultation: clear to auscultation bilaterally Cardio Jugular venous distension: no JVD Rate: regular rate Rhythm: regular rhythm Heart sounds: S1 normal heart sound present and S2 normal heart sound present Bruits: no abdominal aortic bruits, no carotid bruits, no femoral bruits and no renal bruits Peripheral pulses: Peripheral pulses 2+ throughout GI Inspection: Yes normal to inspection Palpation (GI): No Abdominal aortic bruit present Skin General skin exam: no rashes or lesions noted Wounds: no wounds Hair: normal Neuro General: patient oriented x3 Cranial nerves: Yes Normal hearing present Cognition (Neuro): normal cognition Gait exam (Neuro): Normal gait present Motor exam (neuro): 5/5 motor strength present throughout Sensory Exam: No Sensory deficit (Neuro) Extrem Other: Bilateral feet: Discoloration noted from the ankles to the tips of the toes. Feet are cool to the touch, despite being in warm socks. Palpable DP pulses. No ulcerations or wounds noted. Bilateral lower extremities: Trace peripheral edema noted bilaterally from mid gonzáles to ankles. CEAP: C - 4 E - primary A - superficial P - reflux General: Yes normal to inspection, Yes full ROM, Yes capillary refill normal and Yes normal gait Assessment & Plan Assessment & Plan (1) Varicose veins of both lower extremities with inflammation: Code(s): I83.11 - Varicose veins of right lower extremity with inflammation; I83.12 - Varicose veins of left lower extremity with inflammation Category: Medical Plan: Carlos is presenting today for a hx of swelling of his lower extremities, which has lessened. He is not ambulatory and spends most of his time in the wheelchair, recliner, or bed. He is working with PT but unable to bear weight at this time. In short, the patient has evidence of venous insufficiency. I have discussed the pathophysiology with the patient. In addition I have provided informational material regarding venous disease to the patient. We have discussed conservative measures including compression, elevation, and exercise. I wrote on the information sheet for the facility to encourage him to wear compression stockings for a max of 12 hours per day. We discussed elevating his legs as well. I have taken the liberty of ordering venous insufficiency testing with the patient. They will follow up with me after testing. The patient had an opportunity to ask questions regarding the treatment plan. All questions were answered. No major barriers to understanding were identified. The patient expressed understanding and agreement with the above treatment plan. The patient is aware they should contact our office by phone for worsening of the current condition or the appearance of new symptoms. Thank you for allowing me to participate in the vascular care of this patient. If you have any questions or concerns regarding the treatment for the above condition please do not hesitate to contact me. The office telephone contact is [phone]. This note is constructed using voice recognition software. While every effort has been made to ensure accuracy, flosser errors may have been included. Thank you for allowing me to participate in the care of your patient. Yours sincerely, JIM Parmar Orders: Orders US venous duplex LE BI 1 Week I83.11 - Varicose veins of right lower extremity with inflammation, I83.12 - Varicose veins of left lower extremity with inflammation Coding Level of Care Code New Pt Level 4 (32878) Diagnoses Varicose veins of both lower extremities with inflammation I83.11; I83.12
== END 2024-05-27 14:36 | disposition home or self-care (01) ==
PROVIDERS: PCP Internal Medicine; Visit Provider Physician Assistant Surgical
DX: I83.11 Varicose veins of right lower extremity with inflammation (principal); I83.12 Varicose veins of left lower extremity with inflammation
CPT/HCPCS: 99204

== ENCOUNTER → 2024-05-27 13:46 | Outpatient (BNVA) | payer OTHER, SELFPAY | PROVIDERS: PCP Internal Medicine; Visit Provider Physician Assistant Surgical | DX: I83.11 Varicose veins of right lower extremity with inflammation (principal); I83.12 Varicose veins of left lower extremity with inflammation; I89.0 Lymphedema, not elsewhere classified | CPT/HCPCS: 99202 ==

== ENCOUNTER 2024-06-01 13:51 | Outpatient (REF) | payer OTHER, SELFPAY ==
--- NOTE | ~2024-06-01 | MR_ITS ---
EXAMINATION: MR LUMBAR SPINE WITHOUT AND WITH CONTRAST CLINICAL INFORMATION: Low back pain. Left leg pain since December 2023. COMPARISON: CT lumbar spine dated November 07, 2020. MRI lumbar spine dated June 21, 2019. TECHNIQUE: MRI of the lumbar spine was obtained using routine sequences with and without contrast. Intravenous contrast: Magnevist 10 mL FINDINGS: There is a grade 1 retrolisthesis of L2 in relation to L3. This finding is similar when compared with June 21, 2019 MRI exam. Spinal alignment is otherwise anatomic in the sagittal projection. Vertebral bodies demonstrate preserved stature. Aside from degenerative endplate signal change at L2-3, bone marrow signal intensity is within normal limits. There is moderate degenerative disc disease at L3-4, which has progressed since the prior MRI examination. There is mild to moderate degenerative disc disease at L2-3. This has also progressed when compared with the prior examination. The visualized spinal cord, conus medullaris, and cauda equina nerve roots appear normal. The conus terminates at L1. Paraspinal soft tissue is normal in appearance. The visualized retroperitoneal structures are unremarkable. Evaluation of the individual disc space levels is as follows: L1-2: There is a circumferential disc herniation with a superimposed right paracentral disc extrusion with superior migration. There is flattening of the ventral thecal sac. Findings are similar to prior MRI examination. There is mild facet arthropathy. No significant spinal canal stenosis. No foraminal narrowing. L2-3: Evidence of posterior decompression. There is a disc osteophyte complex, facet arthropathy and ligamentous hypertrophy resulting in mild spinal canal stenosis. The degree of stenosis appears less than that on the prior MRI examination. There is severe bilateral foraminal stenosis with compression of the exiting L2 nerve roots bilaterally. L3-4: Evidence of posterior decompression. There is a disc osteophyte complex which flattens the ventral thecal sac. There is facet arthropathy and ligamentous hypertrophy. Findings result in mild to moderate spinal canal stenosis. Findings appear similar to the prior examination. There is severe bilateral foraminal stenosis. L4-5: There is a large circumferential disc herniation. There is facet arthropathy and ligamentous hypertrophy. Findings result in moderate to severe spinal canal stenosis. There is severe bilateral foraminal stenosis, greater on the left. There is mass effect on the traversing left L4 nerve root. L5-S1: There is a circumferential disc herniation with a superimposed right subarticular protrusion with mass effect on the traversing right S1 nerve root. There is moderate facet arthropathy. There is [id number] foraminal narrowing. There is no pathologic spinal enhancement following the intravenous administration of contrast. MR/MR lumbar spine wo/w con IMPRESSION: There is grade 1 retrolisthesis of L2 in relation to L3, similar to the prior MRI examination. There is moderate degenerative disc disease at L3-4, and mild to moderate degenerative disc disease at L2-3. There is multilevel, multifactorial degenerative disease throughout the entire lumbar spine resulting in varying degrees of spinal canal and foraminal stenosis as detailed above. Electronically signed by: Jeffrey Gorman DO 06/04/2024 05:32 PM EST
[2024-06-01] MEDS: gadobutroL 10 ML VIAL IVPUSH (14:59)
== END 2024-06-01 13:52 | disposition home or self-care (01) ==
LOC: HO.MRI 13:51
PROVIDERS: PCP Internal Medicine; Visit Provider Internal Medicine
DX: M48.062 Spinal stenosis, lumbar region with neurogenic claudication (principal); Z99.3 Dependence on wheelchair
CPT/HCPCS: 72158; A9585

== ENCOUNTER 2024-06-17 10:16 | Outpatient (REF) | payer OTHER, SELFPAY | END 2024-06-17 10:17 | disposition home or self-care (01) | LOC: HO.US 10:16 | PROVIDERS: PCP Internal Medicine; Visit Provider Physician Assistant Surgical | DX: I83.11 Varicose veins of right lower extremity with inflammation (principal); I83.12 Varicose veins of left lower extremity with inflammation | CPT/HCPCS: 93970 ==

== ENCOUNTER → 2024-06-17 10:30 | Outpatient (BNV) | payer OTHER, SELFPAY | PROVIDERS: PCP Internal Medicine; Visit Provider Radiology Diagnostic Radiology | DX: I83.11 Varicose veins of right lower extremity with inflammation (principal) | CPT/HCPCS: 93970 ==

== ENCOUNTER 2024-06-24 09:49 | Outpatient (AMB) | payer OTHER, SELFPAY ==
--- NOTE | 2024-06-24 09:50 | MHC.OFFVIS ---
Vital Signs 06/24/24 09:51 Height 5 ft 8 in Intake Visit Reasons: New prob- RT shoulder pain Intake Note: Carlos is a 68 year old right hand dominant male who presents today for a new problem visit with complaints of right shoulder pain. He presents today in wheelchair. Patient reports that he has had pain and swelling in the right shoulder since about December, after having carpal tunnel release. Continues to have numbness and tingling in the right hand. He feels pain all the time, worse with exercise. He takes Oxycodone for other problems related to his back and left knee. Allergies Penicillins [PENICILLINS] Allergy (Severe, Verified 06/24/24 09:54) RASH jay pepper Allergy (Intermediate, Verified 06/24/24 09:54) Rash pepper (genus Capsicum) Adverse Reaction (Intermediate, Verified 06/24/24 09:54) rashes HPI HPI New prob- RT shoulder pain: Details: Carlos is a 68 year old right hand dominant male who presents today for a new problem visit with complaints of right shoulder pain. Patient reports that he has had pain and swelling in the right shoulder since about December, after having carpal tunnel release. Continues to have numbness and tingling in the right hand. He feels pain all the time, worse with exercise. He takes Oxycodone for other problems related to his back and left knee. [facility] Medical History Acute cholecystitis due to biliary calculus Diabetes mellitus Essential hypertension Numbness and tingling in right hand Numbness and tingling in left hand Knee osteoarthritis Mild recurrent major depression Mixed hyperlipidemia Right shoulder pain Right knee pain Left knee pain CKD (chronic kidney disease), stage III Low back pain Multiple falls Syncope DAVINA (acute kidney injury) Obesity due to excess calories Lumbar spondylosis Proteinuria Arthritis Hypertriglyceridemia Hypertension Diabetic polyneuropathy associated with type 2 diabetes mellitus Type 2 diabetes mellitus with other diabetic kidney complication Lumbar stenosis Surgical History History of cholecystectomy (~09/19/23) History of surgery on lower extremity History of total left knee replacement (TKR) S/P evacuation of hematoma Hx of cataract surgery History of lumbar surgery Hx of eye surgery History of back surgery Family History Father Medical history unknown Mother Hypertension Maternal Grandmother Medical history unknown Social History Household Members: None Household Members Other:: self Housing: Apartment Are you a primary career development specialist to a significant other at home: No Do you presently have visiting nurse or other home services: 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 4- out of 5 with deltoid and biceps strength. No pain with passive range of motion of the shoulder. Left knee with near full extension and flexion to 110 degrees. Assessment & Plan Assessment & Plan (1) Right arm weakness: Code(s): R29.898 - Other symptoms and signs involving the musculoskeletal system Category: Medical Plan: Strange exam with severe weakness. I recommend MRI of the right upper extremity. Difficult to assess patient with difficulty following commands. (2) Rupture of left quadriceps tendon: Comment: Left quad repair, 04/15/2023 [place]; re-ruptured on 05/04/2023. Code(s): S76.112A - Strain of left quadriceps muscle, fascia and tendon, initial encounter Category: Medical Qualifiers: Encounter type: subsequent encounter Qualified Code(s): S76.112D - Strain of left quadriceps muscle, fascia and tendon, subsequent encounter Plan: I am not sure why he is in a wheelchair as his left knee seems to be working well. He has near full extension and decent strength. Coding Level of Care Code Est Pt Level 4 (52530) Diagnoses Right arm weakness R29.898 Rupture of left quadriceps tendon, subsequent encounter S76.112D Encounter type: subsequent encounter
== END 2024-06-24 10:38 | disposition home or self-care (01) ==
PROVIDERS: PCP Internal Medicine; Visit Provider Orthopaedic Surgery
DX: R29.898 Other symptoms and signs involving the musculoskeletal system (principal); S76.112D Strain of left quadriceps muscle, fascia and tendon, subsequent encounter
CPT/HCPCS: 99214

== ENCOUNTER → 2024-06-24 09:49 | Outpatient (BNVA) | payer OTHER, SELFPAY | PROVIDERS: PCP Internal Medicine; Visit Provider Orthopaedic Surgery | DX: R29.898 Other symptoms and signs involving the musculoskeletal system (principal); S76.112A Strain of left quadriceps muscle, fascia and tendon, initial encounter; X58.XXXA Exposure to other specified factors, initial encounter; Y93.9 Activity, unspecified; Y92.9 Unspecified place or not applicable; Y99.9 Unspecified external cause status | CPT/HCPCS: 99212 ==

== ENCOUNTER 2024-07-05 10:50 | Outpatient (RCR) | payer OTHER, SELFPAY | END 2024-08-12 15:42 | disposition home or self-care (01) | LOC: HO.PT 10:50 | PROVIDERS: PCP Internal Medicine; Visit Provider Internal Medicine | DX: M25.511 Pain in right shoulder (principal) ==

== ENCOUNTER 2024-07-16 10:17 | Outpatient (AMB) | payer OTHER, SELFPAY ==
--- NOTE | 2024-07-16 10:26 | MHC.OFFVIS ---
Intake Visit Reasons: OV- Left knee pain Intake Note: Carlos is a 68 year old male who presents today for a follow up of his left knee. Patient has not yet had the MRI of his cervical spine done. History of: Left quad tendon repair 05/07/23 LT TKA 02/11/23 Allergies Penicillins [PENICILLINS] Allergy (Severe, Verified 06/24/24 09:54) RASH jay pepper Allergy (Intermediate, Verified 06/24/24 09:54) Rash pepper (genus Capsicum) Adverse Reaction (Intermediate, Verified 06/24/24 09:54) rashes HPI HPI OV- Left knee pain: Details: Mat zarate today is still having not obtain an MRI for his right arm dysfunction. He is using a sling and he can move his right arm at the shoulder. He can make a fist slowly. He has weakness in abduction and elbow flexion. He describes diminished sensation over the right hand. He is not walking because of weakness in his legs and is at a rehab center that he says does not get him up to even tried to walk. [facility] Medical History (Updated 07/12/24 @ 09:06 by Wesley Apple MD) Numbness and tingling in right hand Acute cholecystitis due to biliary calculus Diabetes mellitus Essential hypertension Numbness and tingling in left hand Knee osteoarthritis Mild recurrent major depression Mixed hyperlipidemia Right shoulder pain Right knee pain Left knee pain CKD (chronic kidney disease), stage III Low back pain Multiple falls Syncope DAVINA (acute kidney injury) Obesity due to excess calories Lumbar spondylosis Proteinuria Arthritis Hypertriglyceridemia Hypertension Diabetic polyneuropathy associated with type 2 diabetes mellitus Type 2 diabetes mellitus with other diabetic kidney complication Lumbar stenosis Surgical History History of cholecystectomy (~09/19/23) History of surgery on lower extremity History of total left knee replacement (TKR) S/P evacuation of hematoma Hx of cataract surgery History of lumbar surgery Hx of eye surgery History of back surgery Family History Father Medical history unknown Mother Hypertension Maternal Grandmother Medical history unknown Social History Household Members: None Household Members Other:: self Housing: Apartment Are you a primary lawn caretaker to a significant other at home: No Do you presently have 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 4- out of 5 with deltoid and biceps strength. No pain with passive range of motion of the shoulder. Left knee with near full extension and flexion to 110 degrees. Assessment & Plan Assessment & Plan (1) Numbness and tingling in right hand: Code(s): R20.0 - Anesthesia of skin; R20.2 - Paresthesia of skin Category: Medical Plan: I still think Lori needs an MRI of his neck. This was reordered. (2) Right arm weakness: Code(s): R29.898 - Other symptoms and signs involving the musculoskeletal system Category: Medical Plan: Needs an MRI of his neck. Orders: Orders MR cervical spine wo con 07/12/24 R20.0 - Anesthesia of skin, R20.2 - Paresthesia of skin, R29.898 - Other symptoms and signs involving the musculoskeletal system Coding Level of Care Code Est Pt Level 4 (55612) Diagnoses Numbness and tingling in right hand R20.0; R20.2 Right arm weakness R29.898
== END 2024-07-16 11:15 | disposition home or self-care (01) ==
PROVIDERS: PCP Internal Medicine; Visit Provider Orthopaedic Surgery
DX: R20.0 Anesthesia of skin (principal); R20.2 Paresthesia of skin; R29.898 Other symptoms and signs involving the musculoskeletal system
CPT/HCPCS: 99214

== ENCOUNTER → 2024-07-16 10:17 | Outpatient (BNVA) | payer OTHER, SELFPAY | PROVIDERS: PCP Internal Medicine; Visit Provider Orthopaedic Surgery | DX: R29.898 Other symptoms and signs involving the musculoskeletal system (principal); R20.0 Anesthesia of skin; R20.2 Paresthesia of skin | CPT/HCPCS: 99212 ==

== ENCOUNTER → 2024-07-30 11:01 | Outpatient (BNV) | payer OTHER, SELFPAY | PROVIDERS: PCP Internal Medicine; Visit Provider Radiology Diagnostic Radiology | DX: M47.892 Other spondylosis, cervical region (principal); M48.02 Spinal stenosis, cervical region; M25.78 Osteophyte, vertebrae | CPT/HCPCS: 72141 ==

== ENCOUNTER 2024-07-30 11:10 | Outpatient (REF) | payer OTHER, SELFPAY ==
--- NOTE | ~2024-07-30 | MR_ITS ---
EXAMINATION: MR CERVICAL SPINE WITHOUT CONTRAST CLINICAL INFORMATION: Other symptoms and signs involving the musculoskeletal system -Per technologist note, patient states cannot move right arm since December 2023. No injury. Mild neck pain. COMPARISON: None. Correlation made with CT C-spine 11/07/2020. TECHNIQUE: Multiplanar multisequence MR imaging of the cervical spine was done prior to and without the administration IV gadolinium. Examination was performed on a 1.5 Yahaira Siemens unit, using standard sequences. FINDINGS: CORONAL ALIGNMENT: -There is a very mild levoconvex scoliosis. SAGITTAL ALIGNMENT: -Straightening of the normal lordosis with minimal reversal centered at C3. -3 mm degenerative retrolisthesis of C3 on C4, and similar retrolisthesis C5 on C6. -There is a 4 mm anterolisthesis C7 on T1. CRANIOCERVICAL JUNCTION/C1-2 ARTICULATIONS: -Intact and aligned. VERTEBRAL BODIES/BONE MARROW: -Mild flattening of the C4 and C5 vertebral bodies, chronic. Edematous endplate changes present C4-5 and more prominently at C5-6. -Milder edematous changes at C3-4, and T1-T2. -No suspicious infiltrating abnormal bone marrow signal. -Partial fusion of the C6-7 vertebral bodies with diminutive residual disc. DISCS: -Severe loss of disc height and signal notably C5-6, as well as C7-T1, and T1-2. -Moderate loss of disc height and signal C3-4, and C4-5. -Mild to moderate loss at C2-3. CERVICAL CORD: -There is severe central canal stenosis with cord thinning and signal abnormality at C4-5, as well as lesser impingement at C5-6. -There is a right dorsal column focus of T2 signal hyperintensity with cord thinning at the C6-7 interspace. See below for details. PARAVERTEBRAL SOFT TISSUES: -There are prominent ventral disc osteophytes projecting into the prevertebral space at C3-4, C4-5, C5-6, and to a lesser degree at C6-7. Mild reactive prevertebral edema is present spanning the superior endplate of C3 through the superior endplate of C5. -Thyroid gland is largely obscured by a saturation band. There are normal vertebral artery flow voids. VISUALIZED INTRACRANIAL STRUCTURES: -Within normal limits. AXIAL DISC SPACE IMAGING: C2-C3: There is a central disc osteophytic bulge, indenting on the ventral thecal sac but not contacting the cord. Moderate hypertrophic facet changes bilaterally and hypertrophic uncinate changes, contributing to mild central canal stenosis, and moderate to severe bilateral neural foraminal stenosis. C3-C4: Broad-based central disc extrusion present, indenting the ventral thecal sac, contacting and minimally flattening the ventral cord. There is preserved CSF signal posterior to the cord. There is moderate central canal stenosis with mild increased central cord signal. Moderate bilateral facet and uncinate hypertrophy contributes to severe bilateral neural foraminal encroachment. C4-C5: There is a large irregular dorsal disc osteophytic bulge, severe bilateral hypertrophic facet changes right. Than left, with posterior ligamentous thickening/infolding, and severe bilateral uncinate spurring. Combination of findings is resulting in severe central canal stenosis, cord impingement and flattening, and increased central cord signal suggestive of myelomalacia. The thecal sac reduced to 6 mm AP diameter. There is severe bilateral lateral recess stenosis, severe bilateral neural foraminal stenosis. C5-C6: There is a large broad-based disc osteophytic extrusion, severe bilateral uncinate spurring, moderate bilateral facet spurring right greater than left, with combination resulting in severe central canal stenosis, cord impingement, flattening, and increased central cord signal suggestive of myelomalacia. Central canal has been reduced to 6 mm in AP diameter. Severe right greater than left lateral recess stenosis is present, as well as severe, near obliteration of both neural foramen. C6-C7: Partial fusion of the disc space at this level. There is a central disc osteophytic protrusion indenting on the ventral thecal sac but not contacting the cord. Moderate hypertrophic facet and uncinate changes with posterior ligamentous thickening/infolding. Combination of findings results in moderate central canal stenosis, mild bilateral lateral recess stenosis, and severe, near obliteration of the right greater than left neural foramen. C7-T1: There is disc uncovering secondary to anterolisthesis, severe bilateral facet degeneration and hypertrophy, posterior ligamentous thickening/infolding, resulting in mild to moderate central canal stenosis without definite cord impingement. A thin sliver of CSF remains surrounding the cord. There is mild bilateral lateral recess stenosis. There is moderate to severe left greater than right neural foraminal stenosis. There is a small nerve root sleeve cyst in the right neural foramen. T1-T2: There is a diffuse dorsal disc osteophytic ridge complex, contiguous with bilateral uncinate spurring right greater than left, and a tiny superimposed central disc protrusion. Coupled with moderate hypertrophic degenerative facet changes and mild posterior ligamentous thickening/infolding, combination of findings is resulting in moderate central canal stenosis, mild cord flattening ventrally with preserved CSF posterior and lateral to the cord. There is mild lateral recess stenosis bilaterally, there is severe right greater than left neural foraminal stenosis. MR/MR cervical spine wo con IMPRESSION: 1. Severe spondylosis of the cervical spine as discussed. Severe central canal stenosis with cord impingement, flattening, and increased cord signal at C4-5 and C5-6. Findings suggest myelomalacia at these levels. 2. Moderate central canal stenosis at C3-4, and T1-T2 with ventral cord flattening no but no definite impingement. 3. Partial fusion of C6-7 disc space, without significant central canal stenosis. Despite this, there is a focus of high signal in the right lateral column of the cord, also suspicious for focus of myelomalacia. 4. Multilevel severe neural foraminal encroachment/stenosis. Obliteration of the neural foramen present at C5-6, and near obliteration seen at C6-7. See above for details. 5. Edematous endplate changes present at multiple levels, most notably C4-5 and C5-6. 6. Large ventral projecting disc osteophytes most notable C3-4, C4-5, and C5-6. There is mild prevertebral edema, presumably reactive secondary to these osteophytes, spanning the superior endplate of C3 to the superior endplate of C5. 7. Refer to the body the report for details and additional findings. Electronically signed by: Michael Ramires MD 07/30/2024 02:22 PM [facility]
--- OUTSIDE RECORDS SUMMARY | 2024-07-30 13:18 | XMS_ITS | Continuity of Care Document ---
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 Plan of Treatment Reminders Order Date Submit Date Provider Last Modified By Organization Details Last Modified Time Details Appointments Acute Rounding Visit 2024 08:03A Tahir Gibbs NP Not available Not available Not available Lab None recorded. Referral None recorded. Procedures None recorded. Surgeries None recorded. Imaging None recorded. Medication Orders None recorded. Patient TargetsNo targets recorded. Patient InstructionsNo instructions recorded. Reason for Referral None Reported. Problems Name Problem SNOMED Code Status Onset Date Resolution Date Notes Provider Name and Address Organization Details Recorded Time Diabetes mellitus 82698285 Active 2019 YANG SWEET [address], [place], [address], [facility] [address] 0 09:29:33 Depressive disorder 25163961 Active 2019 YANG SWEET [address] , [address], [place], [address], [facility] [address] 0 09:29:39 Essential hypertensio n 42203863 Active 2019 YANG SWEET [address], [place], [address], [facility] [address] 0 09:29:47 Hypercholes terolemia 86458865 Active 2019 YANG SWEET [address], [place], [address], [facility] [address] 0 09:29:57 Vitamin D deficiency 27549809 Active 2019 YANG SWEET [address], [address], [place], [address], [facility] [employer] [facility] 0 09:30:10 Insomnia 038624516 Active 2019 YANG SWEET [address], [address], [place], [address], [facility] 0 09:30:19 Spinal stenosis of lumbar region 07151143 Active 2019 YANG SWEET [address], [place], [address], [facility] 0 09:30:43 Total knee replacement Active 2022 Sonja Gibbs NP [address] , [address], [place], [address], [facility] 3 09:12:50 Acute pain of joint of knee 8698887936674 04 Active 2022 Sonja Gibbs NP [address] , [address], [place], [address], [facility] 3 09:14:53 Constipatio n 03264905 Active 2022 Sonja Gibbs NP [address] , [address], [place], [address], [facility] 3 10:15:39 Osteoarthri tis of knee 243252592 Active 2022 Judie Camacho MD [address] , [address], [place], [address], [facility] 3 20:37:14 Chronic kidney disease stage 1 567206527 Active 2022 Judie Camacho MD [address], [address], [place], [address], [facility] 3 20:53:16 Chronic diastolic heart failure 245792485 Active 2023 Judie Camacho MD [address], [address], [place], [address], [facility] 4 21:28:14 Chronic kidney disease stage 2 967097944 Active 2023 Judie Camacho MD [address] [facility] [address], [place], [address], [facility] 4 21:28:20 Problem Notes None recorded. Procedures Surgical History Date Name Laterality Status Provider Name and Address Organization Details Recorded Time laminotomy completed YANG SWEET [address] [facility] [address], [place], [address], [facility] 01/06/2020 09:27:06 Imaging Results None recorded. Procedure Notes None recorded. Medical Equipment None Reported. Allergies Allergen ID Allergen Name Allergen Category Reaction Reaction Severity Criticality Documentation Date Start Date Code Code System Note Provider Name and Address Organization Details Recorded Time [id number] Product containin g penicilli n and antibioti c (product) medicatio n rash Not available Not available 01/06/2020 55150 05 SNOMED Not Available Not Available Not Available Medications Name Sig Start Date Stop Date Status Note LastModified by Organization Details LastModified Time tramadol 50 mg tablet Take 2 tablets every 6 hours by oral route. 023 active Not Available Not Available Not Avai lable lorazepam 1 mg tablet 1 tab po bid 023 active Not Available Not Available Not Avai lable oxycodone 5 mg tablet 5 mg po q 6 hrs prn 024 active Not Available Not Available Not Avai lable oxycodone 10 mg tablet Take 1 tablet every 6 hours by oral route as needed. 024 active Not Available Not Available Not Avai lable Vitals Date Recorded Body height Heart rate Respiratory rate Body temperature Oxygen saturation Oxygen saturation in Arterial blood by Pulse oximetry Systolic blood pressure Diastolic blood pressure Provider Name and Address Organization Details Last Updated DateTime 4 198.12 cm 80 /min 18 /min 97.4 [degF] 98 % 98 % 136 mm[Hg] 80 mm[Hg] MARIE TORRES NP [address], [address], [place], [address], [facility] 4 11:25:47 Social History Question Answer Notes LastModified by Organizat ion Details LastModified Time Tobacco Smoking Status Former Smoker Sonja Gibbs, DIAMOND [address], [address], [place], [address], [facility] 02/14/2023 10:11:47 Do You Have An Advance Directive? Yes FULL CODE No Dialysis And Okay To Use Nutrition-us e Hydration Information not available 02/14/2023 What Is Your Level Of Alcohol Consumption? Occasional Information not available 02/14/2023 How Much Tobacco Do You Chew? None [id number] Information not available 05/02/2020 What Is Your Code Status? Full Code Information not available 02/14/2023 Do You Or Have You Ever Used E-cigarettes Or Vape? Never Used Electronic Cigarettes [id number] Information not available 05/02/2020 Where Do You Live? Apartment Elevator Information not available 02/19/2023 Legal Guardian? No Informati on not available 02/14/2023 Do You Have A Medical Power Of Disc Pad Grinding Machine Feeder? Yes [id number] Information not available 05/02/2020 What Was The Date Of Your Most Recent Tobacco Screening? 02/18/2023 Information not available 02/19/2023 Do You Have An Out Of Hospital DNR? No Information not available 02/19/2023 Have You Ever Been Counseled For Unhealthy Alcohol Use? No Information not available 02/19/2023 What Is Your Relationship Status? Information not available 02/19/2023 Do You Or Have You Ever Used Smokeless Tobacco? Never Used Smokeless Tobacco [id number] Information not available 05/02/2020 Do You Use Any Illicit Or Recreational Drugs? No Information not available 02/14/2023 Has Tobacco Cessation Counseling Been Provided? No N/a As Pt. No Longer Smokes Information not available 02/19/2023 How Many Years Have You Smoked Tobacco? 40 [id number] Information not available 05/02/2020 Do You Have Any Dietary Restrictions? No Information not available 02/14/2023 Do You Or Have You Ever Used Any Other Forms Of Tobacco Or Nicotine? No Information not available 02/14/2023 Sex: Male Functional Status None recorded. Mental Status None recorded. Family History Relationship Description Onset Age of this Age Resolved Age Notes LastModified by Organization Details LastModified Time Father No current problems or disability [email or web address] Not available 01/05 09:20:59 Mother No current problems or disability [email or web address] Not available 01/05 09:20:59 Notes:n/c Medical History No medical history recorded. Immunizations Vaccine Type Date Status Note Provider Nam e and Address Organization Details Recorded Time Influenza, adjuvanted, quadrivalent, PF 2 [facility] 09:57:53 Influenza, adjuvanted, quadrivalent, PF 3 [facility]05/2023 11:45:01 pneumococcal polysaccharide PPV23 8 completed Sade Little [facility] 05/07/2024 15:50:52 influenza, unspecified formulation 4 completed Sade Little [facility] 05/07/2024 15:51:08 SARS-COV-2 (COVID-19) vaccine, UNSPECIFIED 1 completed Sade Little [facility] 05/07/2024 15:51:23 SARS-COV-2 (COVID-19) vaccine, UNSPECIFIED 1 completed Sade Little [facility] 05/07/2024 15:51:30 SARS-COV-2 (COVID-19) vaccine, UNSPECIFIED 3 completed Sade Little [facility] 05/07/2024 15:51:38 Past Encounters Encounter ID Performer Location Encounter Start Date Encounter Closed Date Diagnosis/Indication Diagnosis SNOMED-CT Code Diagnosis ICD10 Code Diagnosis Note [id number] Sonja Gibbs NP [address] [address] 06/17/2024 08:35:00 06/18/2024 14:22:00 Spinal stenosis of lumbar region 32080247 M48.062 With chronic back pain. hx of oxycodone 10 mg QID at baseline and cont with fair management here MRI sched for 06/01 of back and hoping to get more info on status and diagnosis, nsg to obtain results While here a right shoulder xray and U/S done for swelling to lower right fingers both came back without fracture, dislocatio n, or thrombus. He is followed outpt by vascular for his lymphedema . He had a MRI of his back/neck on 06/01/24 per notes. Although requested this info, MRI results not obtained yet. Hoping this will help with further diagnosis of right arm back to which may be cervical radiculopa thy. His pcp Dr Jacinto referred him to [facility] with appt 07/29/24 at 1pm per pt. He was also seen by pain management here and awaiting plan from ortho consult visit coming up soon with [facility]. contPT/OT for strengthen ing, balance, gait training, safety and function prnremains barrington lift at this timeContin ue fall precaution s.Monitor for safety.Mon itor pain controlCel ebrex remains on hold. Pain in right arm 304017 004 M79.601 Denies trauma or injury. feels it is improving. has decreased rom and lymphedema for some time nowcontphy siatry prn consultedc onttyl 1000 mg po tid and lidocaine patch which is helpingsch ed Oxycodone 10 mg po q 6 hours and dc prn doses for pain.cyclo benzaprine bidMRI sched for 06/01 of back results pending. nsg obtainingM onitor closely. Asthenia 07906567 R53.1 remains with weakness to left leg and right armPT/OT eval and treat prn, off regular therapymon itor Osteoarthr itis of knee 535736036 M17.12 Z96.652 LTKR originally done on 02/11remains with decreased strength and rom to left knee/leg, barrington lift at this timeoxycod one 10 mg at 6am, 5 mg po at 2pm and 8 pmContinue celecoxib 200 mg BIDAPAP 650 mg TID and q 4 hrs prn (NTE 3000 mg/d),Cont inue fall precaution s.Monitor for safety.F/U with ortho on planned soon, nsg to fu , dr campoverde/s of bilateral lower ext today on 06/17monit or Nausea and vomiting 1691999 R11.2 likely related to constipati onsee belowzofra n 4 mg po q 6 hours prn n/v x 30 days Constipation 41959009 K5 9.09 unclear why bowel meds decreased recently, now with 6 days of constipati onmiralax 17 gms prn qd, titrate as neededdocu sate 100 mg daily06/17 MOM [facility] give bisacodyl supp if no results in a few hoursMonit or bowel function outpt with vna pcp [id number] MARIE TORRES NP [facility] [address] [address] 06/22/2024 12:27:29 06/23/2024 09:31:59 Gastroesophageal reflux disease without esophagitis 242248186 K21.9 Using TUMS frequently for GERD/GI sx.Start pepcid 20 mg bidMonitor sx.If remain problemati c, consider trial of PPI [id number] Sonja Gibbs NP [facility] [address] 06/23/2024 13:31:14 06/24/2024 12:10:49 Asthenia [id number] R53.1 remains with weakness to left leg and right armPT/OT eval and treat prn, off regular therapymon itor Constipation 97665100 K5 9.09 unclear why bowel meds decreased recently, now with 2 days of constipati on and continues with this every couple of days give mom 30 cc and bisacodyl 10 pr supp nowcont miralax 17 gms prn daily(sche duled)cydney a plus 2 tabs dailydc docusateMo nitor bowel function Spinal mg nosis of lumbar region 19150099 M48.062 With chronic back pain. hx of oxycodone 10 mg QID at baseline and cont with fair management here While here a right shoulder xray and U/S done for swelling to lower right fingers both came back without fracture, dislocatio n, or thrombus. He is followed outpt by vascular for his lymphedema . MRI back 06/01/24 ordered outpt by pcp resulted: results reviewed with pt today.-gra de 1 reltrolist hesis of L2 in relation to L3, similar to prior exam-moder ate degenerati ve disc dx at L3-L4, mild to moderate at L2-L3-Mult i-level degenerati ve dx throughout the entire lumbar spine resulting in varying degrees of spinal canal and foraminal stenosis He was referred to Dr Apple 06/24 for right shoulder painalso 07/29/24 [facility] at 1 pm. contPT/OT for strengthen ing, balance, gait training, safety and function prnremains barrington lift at this timeContin ue fall precaution s.Monitor for safety.Mon itor pain controlCel ebrex remains on hold. Pain in right arm 556903 004 M79.601 Denies trauma or injury. feels it is improving. has decreased rom and lymphedema for some time nowcontphy siatry prn consultedc onttyl 1000 mg po tid and lidocaine patch which is helpingsch eduled Oxycodone 10 mg po q 6 hours and dc prn doses for pain.cyclo benzaprine bidMonitor closely.se e above for management Osteoarthr itis of knee 451954943 M17.12 Z96.652 LTKR originally done on 02/11remains with decreased strength and rom to left knee/leg, barrington lift at this timeoxycod one 10 mg at 6am, 5 mg po at 2pm and 8 pmContinue celecoxib 200 mg BIDAPAP 650 mg TID and q 4 hrs prn (NTE 3000 mg/d),Cont inue fall precaution s.Monitor for safety.F/U with ortho on planned soon, nsg to valerie , dr appleu/s of bilateral lower ext today on 06/17monit or Chronic di astolic heart failure 509172386 I50.32 Pt says he never had any resp sxs, CXR didn't show vascular congestion or pulmonary edema and BNP was low, so unclear to me how they are calling this CHF exacerbati on.His last echo was in 2022 and showed EF of 60-65% and grade 1 diastolic dysfunctio n.Pt's main c/o was and continues to be peripheral edema.Cont inuebenaza pril 40 mg qd, lasix 40 mg qd, and hydralazin e 25 mg qd.Also on Trulicity, which is cardioprot ective.Cheng ears euvolemic. Monitor resp. status, fluid status, wts and labs. Diabetes mellitus 249541 09 E11.9 Last HgA1C was 7.9 in 11/2023.Fol lowed by endocrine at [facility].Contin uetrulicit y 1.5 weekly, tresiba 35 U qd, metformin 500 mg BID, januvia 25 mg qd, and SSIMonitor fingerstic ks TID and HgA1C as outpt. Essential hypertension 39290766 I10 stable 133/82Cont inue meds as above and amlodipine 2.5 mg qd.Monitor BP and labsDaily BPs ordered. Depressive disorder 3548 9007 F32.89 In hx.On no meds.Monit or mood.Psych consult prn. Benign pro static hyperplasia without outflow obstruction 388484466 N40.0 In hx, with some issues with retention at times.Cont inuetamsul osin 0.4 mg qd. [id number] Sonja Gibbs NP [facility] [address] 06/25/2024 10:45:21 06/28/2024 14:12:37 Asthenia [id number] R53.1 remains with weakness to left leg and right arm06/25 right arm and left knee brace on in am and off in pm per dr anderson's ordersPT/O T eval and treat prn, off regular therapymon itor Spinal mg nosis of lumbar region 30775617 M48.062 With chronic back pain. hx of oxycodone 10 mg QID at baseline and cont with fair management here While here a right shoulder xray and U/S done for swelling to lower right fingers both came back without fracture, dislocatio n, or thrombus. He is followed outpt by vascular for his lymphedema . MRI lumbar spine back 06/01/24 ordered outpt by pcp resulted-g rade 1 reltrolist hesis of L2 in relation to L3, similar to prior exam-moder ate degenerati ve disc dx at L3-L4, mild to moderate at L2-L3-Mult i-level degenerati ve dx throughout the entire lumbar spine resulting in varying degrees of spinal canal and foraminal stenosis He was referred to Dr Apple 06/24 for right shoulder painand rec:MRI cervical spine, 06/25 right arm and left knee brace on in am and off in pmfu after MRI 07/29/24 [facility] at 1 pm sched from outside provider contPT/OT for strengthen ing, balance, gait training, safety and function prnremains barrington lift at this timeContin ue fall precaution s.Monitor for safety.Margareth mccullough pain controlCel ebrex remains on hold. Pain in right arm 092753 004 M79.601 Denies trauma or injury. feels it is improving. has decreased rom and lymphedema for some time nowcontphy siatry prn consultedt yl 1000 mg po tid and lidocaine patch which is helpingsch eduled Oxycodone 10 mg po q 6 hours and dc prn doses for pain.cyclo benzaprine bid06/25 right arm on in am and off in pm per dr anderson's orders and MRI cervical spine as ordered by Elizabeth mccullough closely.se e above for management Osteoarthr itis of knee 775294059 M17.12 Z96.652 LTKR originally done on 02/11remains with decreased strength and rom to left knee/leg, barrington lift at this timeoxycod one 10 mg at 6am, 5 mg po at 2pm and 8 pmContinue celecoxib 200 mg BIDAPAP 650 mg TID and q 4 hrs prn (NTE 3000 mg/d),Cont inue fall precaution s.Monitor for safety. left knee brace on in am and off in pm per dr anderson's ordersu/s of bilateral lower ext today on 06/17monit or Diabetes mellitus 885407 09 E11.9 Last HgA1C was 7.9 in 11/2023.Fol lowed by endocrine at [facility].with BS of 58 on 06/25 and similar on 06/23, remains asymptomat icContinue trulicity 1.5 weekly, metformin 500 mg BID, januvia 25 mg qd, and SSI06/25 decrease (degludec) tresiba 30 U qd to 26 unitsMonit or fingerstic ks TID and HgA1C as outpt. [id number] MARIE TORRES NP [address] [address] 07/01/2024 11:24:41 07/02/2024 11:53:48 Constipation 52766410 K59.09 Documented BM 06/24, 06/28Pt. states no BM x 6 days.Given MOM and supp last night, fleets this am with poor results so far.Curren tly no abd. pain, no N/V.BS hypoactive . Plan -KUB todayMag citrate 1/2 bottle this afternoon if no results from fleets, repeat 1/2 bottle tomorrow if still with poor results.En courage fluids, dietary fiber.Lane ge prn miralax to scheduled dailyTo ER if condition worsens Health Concerns Section Related Observation LastModified by Organization Detai ls LastModified Time None Recorded Concern Status LastModified by Organization Details LastModified Time None Recorded Payers Encounter Date Sequence Insurance Name Policy Number Policy Richardson Covered Member ID Richardson Member ID Guarantor Name 07/01/2024 1 [facility] - DOS ON OR AFTER 2022 - MEDICARE ADVANTAGE [place] (MEDICARE REPLACEMENT/ADV ANTAGE - PPO) Carlos Olmedosoumya [id number] Carlos Cabrera Notes Date Note Type Note Provider Name and Address Organization Details Recorded Time 07/01/2024 text/html Carlos is seen today for an acute visit. Staff is reporting constipation, last documented BM 06/28, prior to that on 06/24.Pt. reporting no BM x 6 days.Given MOM and supp last night, fleets this am with minimal results, just oozing. Upon exam, Carlos is in bed, denies N/V, but not very hungry. He thinks he is voiding ok, and thinks he may have had a small BM this am. MAR reviewed, is only on senna plus 2 tabs daily for bowel mgmt. Of note, takes scheduled oxycodone 10 mg qid. MARIE TORRES NP [address], [address], [place], [address], [facility] 07/01/2024 11:37:14
--- OUTSIDE RECORDS SUMMARY | 2024-07-30 13:18 | XMS_ITS | Continuity of Care Document ---
Author Organization [facility], [facility] Address [address] [place] [address] Care Team Providers Care Transportation Agent Name Role Phone LANG HERRERA Primary Care Provider [facility] - 4TH FLOOR OTHER Assessment [...] Address Organization Details Recorded Time Diabetes mellitus 64961997 Active 2019 YANG SWEET [address] , [address], [place], [address], [facility] 0 09:29:33 Depressive disorder 55079161 Active 2019 YANG SWEET [address] , [address], [place], [address], [facility] 0 09:29:39 Essential hypertensio n 21405556 Active 2019 YANG SWEET [address] , [address], [address], [facility] 0 09:29:47 Hypercholes terolemia 70687116 Active 2019 YANG SWEET [address] , [address], [place], [address], [facility] 0 09:29:57 Vitamin D deficiency 70511410 Active 2019 YANG SWEET [address], [address], [place], [address], [facility] [employer] [facility] 0 09:30:10 Insomnia 594630123 Active 2019 YANG SWEET [address], [address], [place], [address], [facility] 0 09:30:19 Spinal stenosis of lumbar region 94754536 Active 2019 YANG SWEET [address], [address], [place], [address], [facility] 0 09:30:43 Total knee replacement Active 2022 Sonja Gibbs NP [address] , [address], [place], [address], [facility] 3 09:12:50 Acute pain of joint of knee 6138502102493 04 Active 2022 Sonja Gibbs NP [address] , [address], [place], [address], [facility] 3 09:14:53 Constipatio n 22309956 Active 2022 Sonja Gibbs NP [address] , [address], [place], [address], [facility] 3 10:15:39 Osteoarthri tis of knee 328511487 Active 2022 Judie Camacho MD [address] , [address], [place], [address], [facility] 3 20:37:14 Chronic kidney disease stage 1 561653910 Active 2022 Judie Camacho MD [address], [address], [place], [address], [facility] 3 20:53:16 Chronic diastolic heart failure 055876256 Active 2023 Judie Camacho MD [address], [address], [place], [address], [facility] [employer] [facility] 4 21:28:14 Chronic kidney disease stage 2 383393891 Active 2023 Judie Camacho MD [address] [facility] [address], [place], [address], [facility] [employer] [facility] 4 21:28:20 Problem Notes None recorded. Procedures Surgical History Date Name Laterality Status Provider Name and Address Organization Details Recorded Time laminotomy completed YANG SWEET [address] [facility] [address], [place], [address], [facility] [employer] [facility] 01/06/2020 09:27:06 Imaging Results None recorded. Procedure Notes None recorded. Medical Equipment None Reported. Allergies Allergen ID Allergen Name Allergen Category Reaction Reaction Severity Criticality Documentation Date Start Date Code Code System Note Provider Name and Address Organization Details Recorded Time [id number] Product containin g penicilli n and antibioti c (product) medicatio n rash Not available Not available 01/06/2020 33070 05 SNOMED Not Available Not Available Not [...] Avai lable Vitals Date Recorded Body height Body weight Body mass index (BMI) Heart rate Respiratory rate Body temperature Oxygen saturation Oxygen saturation in Arterial blood by Pulse oximetry Systolic blood pressure Diastolic blood pressure Provider Name and Address Organization Details Last Updated DateTime 5 198.12 cm 22829.1 8 g 21.5 kg/m2 78 /min 18 /min 98.6 [degF] 97 % 97 % 131 mm[Hg] 74 mm[Hg] Sonja Gibbs NP [address] [facility], [address], [place], [address], [facility] 5 08:04:57 Social History Question Answer Notes LastModified by Organizat ion Details LastModified Time Tobacco Smoking Status Former Smoker Sonja Gibbs, [employer] [address] [facility] [address] [facility], [address], [place], [address], [facility] [employer] [facility] 02/14/2023 10:11:47 Do You Have An Advance Directive? Yes FULL CODE No Dialysis And Okay To Use Nutrition-us e Hydration Information not available 02/14/2023 What Is Your Level Of Alcohol Consumption? Occasional Information not available 02/14/2023 How Much Tobacco Do You Chew? None [id number] Information not available 05/02/2020 What Is Your Code Status? Full Code Information not available 02/14/2023 Do You Or Have You Ever Used E-cigarettes Or Vape? Never Used Electronic Cigarettes [id number] Information not available 05/02/2020 Where Do You Live? Apartment Elevator Information not available 02/19/2023 Legal Guardian? No Informati on not available 02/14/2023 Do You Have A Medical Power Of Permit Coordinator? Yes [id number] Information not available 05/02/2020 What Was The [...] Used Smokeless Tobacco? Never Used Smokeless Tobacco [id number] Information not available 05/02/2020 Do You Use Any Illicit Or Recreational Drugs? No Information not available 02/14/2023 Has Tobacco Cessation Counseling Been Provided? No N/a As Pt. No Longer Smokes Information not available 02/19/2023 How Many Years Have You Smoked Tobacco? 40 [id number] Information not available 05/02/2020 Do You Have [...] Influenza, adjuvanted, quadrivalent, PF 2 [facility] 09:57:53 Influenza, adjuvanted, quadrivalent, PF 3 [facility]2023 11:45:01 pneumococcal polysaccharide PPV23 8 completed Sade Little [facility] 05/07/2024 15:50:52 influenza, unspecified formulation 4 completed Sade Little [facility] 05/07/2024 15:51:08 SARS-COV-2 (COVID-19) vaccine, UNSPECIFIED 1 completed Sade Little [facility] 05/07/2024 15:51:23 SARS-COV-2 (COVID-19) vaccine, UNSPECIFIED 1 completed Sade Little [facility] 05/07/2024 15:51:30 SARS-COV-2 (COVID-19) vaccine, UNSPECIFIED 3 completed Sade Little [facility] 05/07/2024 15:51:38 Past Encounters Encounter ID Performer Location Encounter Start Date Encounter Closed Date Diagnosis/Indication Diagnosis SNOMED-CT Code Diagnosis ICD10 Code Diagnosis Note [id number] MARIE TORRES NP [address] [address] 07/01/2024 11:24:41 07/02/2024 11:53:48 Constipation 43029922 K59.09 Documented BM 06/24, 06/28Pt. states no [...] to scheduled dailyTo ER if condition worsens [id number] Sonja Gibbs NP [facility] [address] [address] 07/14/2024 13:30:49 07/16/2024 10:19:43 Diabetes mellitus 80209912 E11.9 Last HgA1C was 7.9 in 11/2023.Fol lowed by endocrine at [facility].with BS of 44 on 07/15 and similar in past, remains asymptomat icContinue trulicity 1.5 weekly, metformin 500 mg BID, januvia 25 mg qd, and SSI1/8 decrease (degludec) tresiba 26 U qd to 20 unitsMonit or fingerstic ks TID and HgA1C as outpt.of note was on 35 units of insulin in recent past Asthenia 46913345 R53.1 remains with weakness to left leg and right arm12/20 right arm and left knee brace on in am and off in pm per dr anderson's ordersPT/O T eval and treat prn, off regular therapymon itor [id number] Sonja Gibbs NP [facility] [address] [address] 07/22/2024 14:17:32 07/23/2024 15:07:54 Constipation 58973609 K59.09 with regular bm per patient todayCurre ntly no abd. pain, no N/V.BS p2Hnqkogvq e fluids, dietary fiber.cont senna plus 2 tabs qdmiralax dailyhouse bowel protocol prn Diabetes mellitus 183496 09 E11.9 Last HgA1C was 7.9 in 11/2023.Fol lowed by endocrine at [facility] with multiple low BS in amContinue trulicity 1.5 weeklymetf ormin 500 mg BIDanuvia 25 mg qd, and SSI(deglud ec)tresiba 20 unitsMonit or fingerstic ks TID and HgA1C as outpt.(of note was on 35 units of insulin in recent past) Asthenia 88371952 R53.1 remains with weakness to left leg and right arm, and today with right leg weaknessri ght arm and left knee brace on in am and off in pm per dr anderson's ordersPT/O T eval and treat prn, off regular therapymon itor Spinal mg nosis of lumbar region 34213339 M48.062 With chronic back pain. hx of [...] am and off in pmfu after MRI sched /29/08 5 [facility] at 1 pm sched from outside providerco ntPT/OT for strengthen ing, balance, gait training, safety and function prnremains barrington lift at this timeContin ue fall precaution s.Monitor for safety.Mon itor pain controlCel ebrex remains on hold. Pain in right arm 192679 004 M79.601 Denies trauma or injury. feels it is improving. has decreased rom and lymphedema for some time now prior to hospitaliz ationcontp hysiatry prn consultedt yl 1000 mg po tid and lidocaine patch which is helpingsch eduled Oxycodone 10 mg po q 6 hourscyclo benzaprine bid06/25 right arm on in am and off in pm per dr anderson's orders and MRI cervical spine as ordered by Elizabeth mccullough closely.se e above for management Osteoarthr itis of knee 375583443 M17.12 Z96.652 LTKR originally done on 02/11remains with decreased strength and rom to left knee/leg, barrington lift at this timeoxycod one 10 mg at 6am, 5 mg po at 2pm and 8 pmContinue celecoxib 200 mg BIDAPAP 650 mg TID and q 4 hrs prn (NTE 3000 mg/d),Cont inue fall precaution s.Monitor for safety.lef t knee brace on in am and off in pm per dr anderson's ordersu/s of bilateral lower ext neg for acute concernsmo nitor Chronic di astolic heart failure 112308120 I50.32 per hosp report of CHF.he never had any resp sxs, CXR didn't show vascular congestion or pulmonary edema and BNP was low, so unclear to me how diagnosed with CHF exacerbati on.His last echo was in 2022 and showed EF of 60-65% and grade 1 diastolic dysfunctio n.Pt's main c/o was and continues to be peripheral edema.Cont inuebenaza pril 40 mg qdlasix 40 mg qdhydralaz ine 25 mg qd.Also on Trulicity, which is cardioprot ective.Cheng ears euvolemic. Monitor resp. status, fluid status, wts and labs. Essential hypertension 13884654 I10 stableCont inue meds as above and amlodipine 2.5 mg qd.Monitor BP and labsDaily BPs ordered. Depressive disorder 3548 9007 F32.89 In hx.On no meds.Monit or mood.Psych consult prn. Benign pro static hyperplasia without outflow obstruction 092112554 N40.0 In hx, with some issues with retention at times.Cont inuetamsul osin 0.4 mg qd. Gastroesop hageal reflux disease without esophagitis 548003417 K21.9 Using TUMS frequently for GERD/GI sx. resolvingc ontpepcid 20 mg bidMonitor sx.If remain problemati c, consider trial of PPI Nausea and vomiting 1692 1999 R11.2 resolvedse e belowzofra n 4 mg po q 6 hours prn n/v x 30 days Chronic ki dney disease stage 2 982976912 N18.2 At baseline.C ontinue to avoid nephrotoxi c meds as able.Monit or labs.Renal consult prn. Hypercholesterolemia 136 24663 E78.2 Continueat orvastatin 20 mg qdfenofibr ate 145 mg qdvascepa 2 g BID,ASA 81 mg qd.Monitor labs as outpt. [id number] Sonja Gibbs NP [address] [address] 07/30/2024 08:03:45 07/30/2024 09:06:12 Spinal stenosis of lumbar region 09906577 M48.062 With chronic back pain and weakness reported since september or october 2023. hx of oxycodone 10 mg QID at baseline and cont with tolerable management here 05/13/24 U/S done for swelling to lower right fingers both came back without fracture, dislocatio n, or thrombus.Chelsey rios is followed outpt by vascular for his lymphedema Dr Awan 05/14 xray right shoulder:C ONCLUSION: No acute osseous findings. Recommend a repeat multi-view imaging in 1 week or sooner if clinically warranted especially if symptoms continue to persist or progress. Chronic rotator cuff tear. 06/01/24 MRI lumbar spine back resulted-g rade 1 reltrolist hesis of L2 in relation to L3, similar to prior exam-moder ate degenerati ve disc dx at L3-L4, mild to moderate at L2-L3-Mult i-level degenerati ve dx throughout the entire lumbar spine resulting in varying degrees of spinal canal and foraminal stenosis 06/24/24 Dr Apple for right shoulder painand rec:MRI cervical spine, 06/25 right arm and left knee brace on in am and off in pmfu after cervical MRI sched 07/3107/29/24 [facility] with rec:neuros urgery consult with Dr Serna 07/30 referral to [facility] ordered as recommende d, has MRI today. contPT/OT prn, currently not working with himremForuforever lift at this timeContin ue fall precaution s.Monitor for safety.Mon itor pain controlCel ebrex remains on hold. Asthenia 76243518 R53.1 remains with weakness to left leg and right arm, and today with right leg weaknessri ght arm sling and left knee brace on in am and off in pm per dr anderson's ordersPT/O T eval and treat prn, off regular jean mccullough Pain in right arm 720041 004 M79.601 Denies trauma or injury. feels it is improving. has decreased rom and lymphedema for some time now prior to hospitaliz ationcontp hysiatry prn consultedt yl 1000 mg po tid and lidocaine patch which is helpingsch eduled Oxycodone 10 mg po q 6 hourscyclo benzaprine bid12/20 right arm sling on in am and off in pm per dr anderson's orders and MRI cervical spine as ordered by Elizabeth mccullough closely.se e above for management Osteoarthr itis of knee 607672536 M17.12 Z96.652 LTKR originally done on 02/11remains with decreased strength and rom to left knee/leg, barrington lift at this timeoxycod one 10 mg at 6am, 5 mg po at 2pm and 8 pmContinue celecoxib 200 mg BIDAPAP 650 mg TID and q 4 hrs prn (NTE 3000 mg/d),Cont inue fall precaution s.Monitor for safety.lef t knee brace on in am and off in pm per dr anderson's ordersu/s of bilateral lower ext neg for acute concernsmo nitor Health Concerns Section Related Observation LastModified by Organization Detai ls LastModified Time None Recorded Concern Status LastModified by Organization Details LastModified Time None Recorded Payers Encounter Date Sequence Insurance Name Policy Number Policy Richardson Covered Member ID Richardson Member ID Guarantor Name 07/30/2024 1 [facility] - DOS ON OR AFTER 2022 - MEDICARE ADVANTAGE [place] (MEDICARE REPLACEMENT/ADV ANTAGE - PPO) Carlos Cabrera [id number] Carlos Cabrera Notes Date Note Type Note Provider Name and Address Organization Details Recorded Time 07/30/2024 text/html Carlos is seen fo r an acute visit today. Carlos was originally admitted on 05/06 after a hospitalization for CHF exacerbation, edema, and weakness. CHF and edema resolved here. He has worked with rehab, but then plateaued and is now on fpc care here. He is no longer receiving therapy here. He continues to need 2 max assist for transfers and requires a barrington lift and needs are not able to be met at home. Multiple tests done for his weakness while here and managed with oxycodone 10 mg po qid which is the same dose prior to coming here. Imaging: While here a right shoulder xray and U/S done for swelling to lower right fingers both came back without fracture, dislocation, or thrombus. He is followed outpt by vascular Dr Awan for his lymphedema and seems to be resolving. His pcp Dr Jacinto referred him to [facility] with appt 07/29/24 at 1pm per pt. He is recommended to see Dr Serna. Once MRI done on 08/01 will send referral and tests to [facility] for appt. On 06/[address] [facility] [address] Apple for the weakness and pain of right arm and left leg. An MRI of lumbar spine was done and now [facility] requesting MRI of cervical neck for ?relation to the right arm weakness and numbness scheduled for 07/30/24. He was give a knee knee and a sling in the meantime. On exam, Carlos states he may want a second opinion and has had surgeries with Dr. Serna in the past. He remains with weakness to his right arm, and left leg, however also seems right leg has decreased strength also. He shows this [employer] CHECKER his appointment pickup is at 10:45 am today for the MRI. He reports pain is baseline with oxycodone and tolerable. Referral to Dr Serna is written for with all imaging to go with consult. Sonja Gibbs, DIAMOND [address] [facility] [address] [facility], [address], [place], [address], [facility] [employer] 07/30/2024 09:06:11
--- OUTSIDE RECORDS SUMMARY | 2024-07-30 13:19 | XMS_ITS | Encounter Summary ---
Author Organization [facility] Address [address] [place] [address] Care Team Providers Care New Accounts Banking Representative Name Role Phone Tram Álvarez MD Primary Care Provider [phone] Encounter Details Date Type Department Care Team (Late Contact Info) Description 06/18/[address] [facility] - Main Lab [address] [facility] [facility] [place] [address] Prince Le MD [address] [facility] [address] [place], [address] Nausea with vomiting, unspecified; Chronic kidney disease, unspecified Social History Tobacco Use Types Packs/Day Years Used Date Smoking Tobacco: Never Assessed Sex and Gender Information Value Date Recorded Sex Assigned at Not on file Gender Identity Not on file Sexual Orientation Not on file Job Start Date Occupation Industry Not on file Not on file Not on file documented as of this encounter Plan of Treatment Upcoming Encounters Date Type Department Care Team (Late Contact Info) Description 08/12/2024 8:30 AM EST Office Visit Orthopedic Surgery - [place] [address] [address] Clifford Benson DPM [address] [address] documented as of this encounter Procedures Procedure Name Priority Date/Time Associated Diagnosis Comments COMPLETE BLOOD COUNT Routine 06/18/2024 6:44 AM EST Nausea with vomiting, unspecified Chronic kidney disease, unspecified BASIC METABOLIC PANEL Routine 06/18/2024 6:44 AM EST Nausea with vomiting, unspecified Chronic kidney disease, unspecified documented in this encounter Results * (ABNORMAL) Basic metabolic panel (06/18/2024 6:44 AM EST) Sodium 142 133 - 145 mmol/L LAB CHEMISTRY METHOD 06/18/2024 11:17 AM [facility] Potassium 4.6 3.5 - 5.5 mmol/L LAB CHEMISTRY METHOD 06/18/2024 11:17 AM [facility] Chloride 102 96 - 110 mmol/L LAB CHEMISTRY METHOD 06/18/2024 11:17 AM [facility] CO2 32 21 - 32 mmol/L LAB CHEMISTRY METHOD 06/18/2024 11:17 AM [facility] Anion Gap 8 3 - 11 LAB CHEMISTRY METHOD 06/18/2024 11:17 AM [facility] Glucose 72 70 - 100 mg/dL LAB CHEMISTRY METHOD 06/18/2024 11:17 AM [facility] BUN 35(H) 5 - 25 mg/dL LAB CHEMISTRY METHOD 06/18/2024 11:17 AM [facility] Creatinine 1.44(H) 0.70 - 1.30 mg/dL LAB CHEMISTRY METHOD 06/18/2024 11:17 AM [facility] eGFR 53(L) >=60 mL/min/1. 73m2 LAB CHEMISTRY METHOD 06/18/2024 11:17 AM [facility] Comment:Calculation based on the??Chronic Kidney Disease Epidemiology Collaboration (CKD-EPI) equation refit??without adjustment for race. BUN/Creatinine Ratio 24.3 LAB CHEMISTRY METHOD 06/18/2024 11:17 AM [facility] Calcium 9.3 8.5 - 10.5 mg/dL LAB CHEMISTRY METHOD 06/18/2024 11:17 AM [facility] Blood Venous blood specimen / Unknown Venipuncture / Unknown 06/18/2024 6:44 AM EST 06/18/2024 9:17 AM EST Prince Le MD LAB BLOOD ORDERABLES [facility] [address] [place] [address], * (ABNORMAL) Complete blood count (06/18/2024 6:44 AM EST) WBC 8.4 4.8 - 10.8 K/mcL LAB HEMETOLOGY METHOD 06/18/2024 10:46 AM [facility] RBC 5.10 4.50 - 5.50 M/mcL LAB HEMETOLOGY METHOD 06/18/2024 10:46 AM [facility] Hemoglobin 14.2 13.5 - 17.5 g/dL LAB HEMETOLOGY METHOD 06/18/2024 10:46 AM [facility] Hematocrit 43.5 42.0 - 54.0 % LAB HEMETOLOGY METHOD 06/18/2024 10:46 AM [facility] MCV 86.1 79.0 - 98.0 FL LAB HEMETOLOGY METHOD 06/18/2024 10:46 AM [facility] MCH 28.1 27.0 - 32.0 pcg LAB HEMETOLOGY METHOD 06/18/2024 10:46 AM [facility] MCHC 32.6 32.0 - 37.0 g/dL LAB HEMETOLOGY METHOD 06/18/2024 10:46 AM [facility] RDW 17.2(H) 11.0 - 15.0 % LAB HEMETOLOGY METHOD 06/18/2024 10:46 AM [facility] Platelets 248 130 - 400 K/mcL LAB HEMETOLOGY METHOD 06/18/2024 10:46 AM [facility] MPV 12.7(H) 7.0 - 11.0 FL LAB HEMETOLOGY METHOD 06/18/2024 10:46 AM [facility] NRBC 0.0 <1.0 % LAB HEMETOLOGY METHOD 06/18/2024 10:[address] [facility] NRBC Absolute 0.00 <0.10 K/mcL LAB HEMETOLOGY METHOD 06/18/2024 10:[address] [facility] Blood Venous blood specimen / Unknown Venipuncture / Unknown 06/18/2024 6:44 AM EST 06/18/2024 9:17 AM EST Prince Le MD LAB BLOOD ORDERABLES [facility] [address] [place] [address], documented in this encounter Visit Diagnoses Diagnosis Nausea with vomiting, unspecified Chronic kidney disease, unspecified documented in this encounter Care Teams New Accounts Banking Representative Relationship Specialty Start Date End Date Tram Álvaerz MD [address] [facility] , [address] [facility] D/B/A: [facility] [place] PCP - General Internal Medicine 03/30/18 documented as of this encounter
--- OUTSIDE RECORDS SUMMARY | 2024-07-30 13:19 | XMS_ITS | Clinical Summary ---
Author Organization 175 [facility] Address [address] [place] [address] Phone Care Team Providers Care Operations Intern Name Role Phone Tram Álvarez MD Primary Care Provider [phone] Encounters Date Type Department Care Team Description 07/29/2024 Lab Requisition [facility] Main Lab [address] [facility] [place] [address] Prince Le MD Type 2 diabetes mellitus without complications ([facility]) 07/22/2024 Lab Requisition [facility] Main Lab [address] [facility] [place] [place] [address] Prince Le MD Type 2 diabetes mellitus without complications ([facility]) 07/16/2024 Lab Requisition [facility] - Main Lab [address] [facility] [place] [address] Prince Le MD Type 2 diabetes mellitus without complications ([facility]) 06/18/2024 Lab Requisition [facility] Main Lab [address] [facility] [place] [address] Prince Le MD Nausea with vomiting, unspecified; Chronic kidney disease, unspecified 05/28/2024 Lab Requisition [facility] Main Lab [address] [facility] [place] [address] Prince Le MD Essential (primary) hypertension 05/21/2024 Lab Requisition [facility] Main Lab [address] [facility] [place] [address] Prince Le MD Essential (primary) hypertension 05/14/2024 Lab Requisition [facility] Main Lab [address] [facility] [place] [place] [address] Prince Le MD Essential (primary) hypertension from Last 3 Months Social History Tobacco Use Types Packs/Day Years Used Date Smoking Tobacco: Never Assessed Sex and Gender Information Value Date Recorded Sex Assigned at Not on file Gender Identity Not on file Sexual Orientation Not on file Job Start Date Occupation Industry Not on file Not on file Not on file Plan of Treatment Upcoming Encounters Date Type Department Care Team ([facility] st Contact Info) Description 08/12/2024 8:30 AM EST Office Visit Orthopedic Surgery - [place] [address] [phone] Clifford Benson, DPM [address] [address] Health Maintenance Due Date Last Done Comments Diabetes: Annual Foot Exam 10/04/1965 Diabetes: Annual Retina Eye Exam 10/04/1965 Zoster Vaccines (1 of 2) 10/04/2005 RSV Immunization Patients 60+ Years Old (1 - Risk 60-74 years 1-dose series) 2015 Pneumococcal Vaccine: 65+ Years (2 of 2 - PCV) 05/12/2019 05/12/2018, 07/09/2010 DTaP,Tdap,and Td Vaccines (2 - Td or Tdap) 08/31/2020 08/31/2010 Abdominal Aortic Aneurysm (AAA) Screen 06/04/2022 Cholesterol Screening (Lipid Panel) 06/04/2022 Colorectal Cancer Screening: Colonoscopy 06/04/2022 Depression Screening 06/04/2022 Falls Risk Assessment 06/04/2022 Hepatitis C Screening 06/04/2022 Medicare Annual Wellness Visit 06/04/2022 Social Influencers of Health Screening 06/04/2022 COVID-19 Vaccine ( season) 2024 04/10/2023, 09/11/2020, 08/21/2020 Diabetes: Annual Urine Albumin-Creatinine Ratio (uACR) 05/08/2024 Diabetes: Blood Sugar Control Test (HGBA1C) 05/08/2024 Diabetes: Annual GFR (Glomerular Filtration Rate) 07/23/2025 07/30/2024, 07/23/2024, 07/16/2024, Additional history exists Hypertension/CHF/CAD Annual BMP Blood Test 07/23/2025 07/30/2024, 07/23/2024, 07/16/2024, Additional history exists Influenza Vaccine Completed 04/15/2024, , 05/08/2022, Additional history exists HIB Vaccines Aged Out No longer eligi ble based on patient's age to complete this topic HPV Vaccines Aged Out No longer eligi ble based on patient's age to complete this topic Hepatitis A Vaccines Aged Out No long er eligible based on patient's age to complete this topic Hepatitis B Vaccines Aged Out No long er eligible based on patient's age to complete this topic IPV Vaccines Aged Out No longer eligi ble based on patient's age to complete this topic MMR Vaccines Aged Out No longer eligi ble based on patient's age to complete this topic Meningococcal ACWY Vaccine Aged Out N o longer eligible based on patient's age to complete this topic RSV Immunization Patients Under 20 months Aged Out No longer eligible based on patient's age to complete this topic Varicella Vaccines Aged Out No longer eligible based on patient's age to complete this topic Procedures Procedure Name Priority Date/Time Associated Diagnosis Comments C-REACTIVE PROTEIN Routine 07/30/2024 7: 30 AM EST Type 2 diabetes mellitus without complications (CMS/HCC) COMPREHENSIVE METABOLIC PANEL Routine 07/30/2024 7:30 AM EST Type 2 diabetes mellitus without complications (CMS/HCC) COMPLETE BLOOD COUNT Routine 07/30/2024 7:30 AM EST Type 2 diabetes mellitus without complications (CMS/HCC) C-REACTIVE PROTEIN Routine 07/23/2024 6: 52 AM EST Type 2 diabetes mellitus without complications (CMS/HCC) COMPREHENSIVE METABOLIC PANEL Routine 07/23/2024 6:52 AM EST Type 2 diabetes mellitus without complications (CMS/HCC) COMPLETE BLOOD COUNT Routine 07/23/2024 6:52 AM EST Type 2 diabetes mellitus without complications (CMS/HCC) C-REACTIVE PROTEIN Routine 07/16/2024 8: 00 AM EST Type 2 diabetes mellitus without complications (CMS/HCC) COMPREHENSIVE METABOLIC PANEL Routine 07/16/2024 8:00 AM EST Type 2 diabetes mellitus without complications (CMS/HCC) COMPLETE BLOOD COUNT Routine 07/16/2024 8:00 AM EST Type 2 diabetes mellitus without complications (CMS/HCC) BASIC METABOLIC PANEL Routine 06/18/2024 6:44 AM EST Nausea with vomiting, unspecified Chronic kidney disease, unspecified COMPLETE BLOOD COUNT Routine 06/18/2024 6:44 AM EST Nausea with vomiting, unspecified Chronic kidney disease, unspecified BASIC METABOLIC PANEL Routine 05/31/2024 7:20 AM EST Essential (primary) hypertension COMPLETE BLOOD COUNT Routine 05/31/2024 7:20 AM EST Essential (primary) hypertension BASIC METABOLIC PANEL Routine 05/24/2024 6:00 AM EST Essential (primary) hypertension COMPLETE BLOOD COUNT Routine 05/24/2024 6:00 AM EST Essential (primary) hypertension BASIC METABOLIC PANEL Routine 05/17/2024 6:41 AM EST Essential (primary) hypertension COMPLETE BLOOD COUNT Routine 05/17/2024 6:41 AM EST Essential (primary) hypertension from Last 3 Months Results * (ABNORMAL) Complete blood count (07/30/2024 7:30 AM EST) Only the most recent of7 resultswithin the time period is included. WBC 8.9 4.8 - 10.8 K/mcL LAB HEMETOLOGY METHOD 07/30/2024 9:55 AM EST [facility] LAB RBC 4.30(L) 4.50 - 5.50 M/[facility] LAB HEMETOLOGY METHOD 07/30/2024 9:55 AM [facility] LAB Hemoglobin 12.1(L) 13.5 - 17.5 g/dL LAB HEMETOLOGY METHOD 07/30/2024 9:55 AM [facility] LAB Hematocrit 36.5(L) 42.0 - 54.0 % LAB HEMETOLOGY METHOD 07/30/2024 9:55 AM [facility] LAB MCV 84.3 79.0 - 98.0 FL LAB HEMETOLOGY METHOD 07/30/2024 9:55 AM [facility] LAB MCH 27.9 27.0 - 32.0 pcg LAB HEMETOLOGY METHOD 07/30/2024 9:55 AM [facility] LAB MCHC 33.2 32.0 - 37.0 g/dL LAB HEMETOLOGY METHOD 07/30/2024 9:55 AM [facility] LAB RDW 19.4(H) 11.0 - 15.0 % LAB HEMETOLOGY METHOD 07/30/2024 9:55 AM [facility] LAB Platelets 315 130 - 400 K/mcL LAB HEMETOLOGY METHOD 07/30/2024 9:55 AM [facility] LAB MPV 12.7(H) 7.0 - 11.0 FL LAB HEMETOLOGY METHOD 07/30/2024 9:55 AM [facility] LAB NRBC 0.0 <1.0 % LAB HEMETOLOGY METHOD 07/30/2024 9:55 AM [facility] LAB NRBC Absolute 0.00 <0.10 K/mcL LAB HEMETOLOGY METHOD 07/30/2024 9:55 AM [facility] LAB Blood Venous blood specimen / Unknown Venipuncture / Unknown 07/30/2024 7:30 AM EST 07/30/2024 9:39 AM EST Prince Le MD LAB BLOOD ORDERABLES [facility] LAB [address] [place] [address], * (ABNORMAL) C-reactive protein (07/30/2024 7:30 AM EST) Only the most recent of3 resultswithin the time period is included. [facility] C-Reactive Protein 1.22(H) <=0.50 mg/dL LAB CHEMISTRY METHOD 07/30/2024 10:25 AM [facility] LAB Blood Venous blood specimen / Unknown Venipuncture / Unknown 07/30/2024 7:30 AM EST 07/30/2024 9:39 AM EST Prince Le MD LAB BLOOD ORDERABLES Performing Organization Address [facility] Co de Phone Number [facility] LAB [address] [place] [address], * (ABNORMAL) Comprehensive metabolic panel (07/30/2024 7:30 AM EST) Only the most recent of3 resultswithin the time period is included. [facility] Sodium 140 133 - 145 mmol/L LAB CHEMISTRY METHOD 07/30/2024 10:25 AM [facility] LAB Potassium 5.1 3.5 - 5.5 mmol/L LAB CHEMISTRY METHOD 07/30/2024 10:25 AM [facility] LAB Chloride 107 96 - 110 mmol/L LAB CHEMISTRY METHOD 07/30/2024 10:25 AM [facility] LAB CO2 31 21 - 32 mmol/L LAB CHEMISTRY METHOD 07/30/2024 10:25 AM [facility] LAB Anion Gap 2(L) 3 - 11 LAB CHEMISTRY METHOD 07/30/2024 10:25 AM [facility] LAB Glucose 76 70 - 100 mg/dL LAB CHEMISTRY METHOD 07/30/2024 10:25 AM [facility] LAB BUN 28(H) 5 - 25 mg/dL LAB CHEMISTRY METHOD 07/30/2024 10:25 AM [facility] LAB Creatinine 1.13 0.70 - 1.30 mg/dL LAB CHEMISTRY METHOD 07/30/2024 10:25 AM [facility] LAB eGFR 71 >=60 mL/min/1. 73m2 LAB CHEMISTRY METHOD 07/30/2024 10:25 AM [facility] LAB Comment:Calculation based on the??Chronic Kidney Disease Epidemiology Collaboration (CKD-EPI) equation refit??without adjustment for race. BUN/Creatinine Ratio 24.8 LAB CHEMISTRY METHOD 07/30/2024 10:25 AM [facility] LAB Calcium 9.5 8.5 - 10.5 mg/dL LAB CHEMISTRY METHOD 07/30/2024 10:25 AM [facility] LAB AST (SGOT) 28 10 - 42 unit/L LAB CHEMISTRY METHOD 07/30/2024 10:25 AM [facility] LAB ALT (SGPT) 24 10 - 60 unit/L LAB CHEMISTRY METHOD 07/30/2024 10:25 AM [facility] LAB Alkaline Phosphatase 62 42 - 121 unit/L LAB CHEMISTRY METHOD 07/30/2024 10:25 AM [facility] LAB Total Protein 6.4 6.0 - 8.0 g/dL LAB CHEMISTRY METHOD 07/30/2024 10:25 AM [facility] LAB Albumin 3.2 3.2 - 5.0 g/dL LAB CHEMISTRY METHOD 07/30/2024 10:25 AM [facility] LAB Total Bilirubin 0.4 0.0 - 1.4 mg/dL LAB CHEMISTRY METHOD 07/30/2024 10:25 AM [facility] LAB Blood Venous blood specimen / Unknown Venipuncture / Unknown 07/30/2024 7:30 AM EST 07/30/2024 9:39 AM EST Prince Le MD LAB BLOOD ORDERABLES [facility] LAB [address] [place] [address], [place] [phone] * (ABNORMAL) Basic metabolic panel (06/18/2024 6:44 AM EST) Only the most recent of4 resultswithin the time period is included. Sodium 142 133 - 145 mmol/L LAB CHEMISTRY METHOD 06/18/2024 11:17 AM [facility] LAB Potassium 4.6 3.5 - 5.5 mmol/L LAB CHEMISTRY METHOD 06/18/2024 11:17 AM [facility] LAB Chloride 102 96 - 110 mmol/L LAB CHEMISTRY METHOD 06/18/2024 11:17 AM [facility] LAB CO2 32 21 - 32 mmol/L LAB CHEMISTRY METHOD 06/18/2024 11:17 AM [facility] LAB Anion Gap 8 3 - 11 LAB CHEMISTRY METHOD 06/18/2024 11:17 AM [facility] LAB Glucose 72 70 - 100 mg/dL LAB CHEMISTRY METHOD 06/18/2024 11:17 AM [facility] LAB BUN 35(H) 5 - 25 mg/dL LAB CHEMISTRY METHOD 06/18/2024 11:17 AM [facility] LAB Creatinine 1.44(H) 0.70 - 1.30 mg/dL LAB CHEMISTRY METHOD 06/18/2024 11:17 AM [facility] LAB eGFR 53(L) >=60 mL/min/1. 73m2 LAB CHEMISTRY METHOD 06/18/2024 11:17 AM [facility] LAB Comment:Calculation based on the??Chronic Kidney Disease Epidemiology Collaboration (CKD-EPI) equation refit??without adjustment for race. BUN/Creatinine Ratio 24.3 LAB CHEMISTRY METHOD 06/18/2024 11:17 AM [facility] LAB Calcium 9.3 8.5 - 10.5 mg/dL LAB CHEMISTRY METHOD 06/18/2024 11:17 AM [facility] LAB Blood Venous blood specimen / Unknown Venipuncture / Unknown 06/18/2024 6:44 AM EST 06/18/2024 9:17 AM EST Prince Le MD [facility] [address] [place] [address], from Last 3 Months Care Teams Operations Intern Relationship Specialty Start Date End Date Tram Álvarez MD [address] [place] [address] , [address] [facility] JAS Duque PCP - General Internal Medicine 03/30/18
--- OUTSIDE RECORDS SUMMARY | 2024-07-30 13:19 | XMS_ITS | Clinical Summary ---
Author Organization [facility] Address [address] [place] [address] Care Team Providers Care Finance Effectiveness Manager Name Role Phone Tram Royal MD Primary Care Provid er Social History Tobacco Use Types Packs/Day Years Used Date Smoking Tobacco: Never Assessed Sex and Gender Information Value Date Recorded Sex Assigned at Not on file Gender Identity Not on file Sexual Orientation Not on file Plan of Treatment Health Maintenance Due Date Last Done Comments Hepatitis C Screening 1955 COVID-19 Vaccine (#1) 04/05/1956 Depression Screening 1967 Preventative Health Evaluation 10/04/1973 Colon Cancer Screening (Colonoscopy) 10/04/2000 Shingrix-Zoster Vaccine (1 o f 2) 10/04/2005 DTap / Tdap / Td (2 - Td or Tdap) 08/31/2020 08/31/2010 Fall Risk Assessment 10/04/2020 Pneumococcal Vaccine (2 of 2 - PCV) 10/04/2020 07/09/2010 Influenza Vaccine (#1) 2024 2, 03/22/2011, 07/09/2010 RSV Adult > 60+ Yrs or (1 - 1-dose 75+ series) 10/04/2030 Hepatitis B Vaccines Aged Out No long er eligible based on patient's age to complete this topic RSV Ped < 20 months Aged Out No longe r eligible based on patient's age to complete this topic Care Teams Finance Effectiveness Manager Relationship Specialty Start Date End Date Tram Royal MD [address] [facility] , [address] [facility] [place] [address] PCP - General Internal Medicine 03/30/18
--- OUTSIDE RECORDS SUMMARY | 2024-07-30 13:19 | XMS_ITS | Continuity of Care Document ---
Author Organization [facility] Address [address] [place] [address] Care Team Providers Care Loop Puller Name Role Phone LANG HERRERA Primary Care Provider [facility] [place] - 4TH FLOOR OTHER Assessment No assessment [...] Address Organization Details Recorded Time Diabetes mellitus 67304621 Active 2019 YANG SWEET [address], [address], [facility] 0 09:29:33 Depressive disorder 54620336 Active 2019 YANG SWEET [address] , [address], [place], [address], [facility] 0 09:29:39 Essential hypertensio n 55784314 Active 2019 YANG SWEET [address], [address], [facility] 0 09:29:47 Hypercholes terolemia 95032223 Active 2019 YANG SWEET [address] , [address], [place], [address], [facility] 0 09:29:57 Vitamin D deficiency 67154120 Active 2019 YANG SWEET [address], [place], [address], [facility] [employer] [facility] 0 09:30:10 Insomnia 652005520 Active 2019 YANG SWEET [address], [place], [address], [facility] [employer] [facility] 0 09:30:19 Spinal stenosis of lumbar region 79959801 Active 2019 YANG SWEET [address], [place], [address], [facility] [employer] [facility] 0 09:30:43 Total knee replacement Active 2022 Sonja Gibbs NP [address] , [address], [place], [address], [facility] [employer] [facility] 3 09:12:50 Acute pain of joint of knee 8716621116729 04 Active 2022 Sonja Gibbs NP [address] , [address], [place], [address], [facility] [employer] [facility] 3 09:14:53 Constipatio n 95003518 Active 2022 Sonja Gibbs NP [address] , [address], [place], [address], [facility] [employer] [facility] 3 10:15:39 Osteoarthri tis of knee 379173313 Active 2022 Judie Camacho MD [address] , [address], [place], [address], [facility] [employer] [facility] 3 20:37:14 Chronic kidney disease stage 1 549744846 Active 2022 Judie Camacho MD [address], [place], [address], [facility] [employer] [facility] 3 20:53:16 Chronic diastolic heart failure 118513763 Active 2023 Judie Camacho MD [address], [place], [address], [facility] [employer] [facility] 4 21:28:14 Chronic kidney disease stage 2 827001964 Active 2023 Judie Camacho MD [address] [facility] [address], [place], [address], [facility] [employer] [facility] 4 21:28:20 Problem Notes None recorded. Procedures Surgical History Date Name Laterality Status Provider Name and Address Organization Details Recorded Time laminotomy completed YANG SWEET [address] [facility] [address], [place], [address], [facility] [employer] [facility] 01/06/2020 09:27:06 Imaging Results None recorded. Procedure Notes None recorded. Medical Equipment None Reported. Allergies Allergen ID Allergen Name Allergen Category Reaction Reaction Severity Criticality Documentation Date Start Date Code Code System Note Provider Name and Address Organization Details Recorded Time [id number] Product containin g penicilli n and antibioti c (product) medicatio n rash Not available Not available 01/06/2020 78622 05 SNOMED Not Available Not Available Not [...] lable Vitals Date Recorded Body height Body mass index (BMI) Body weight Heart rate Respiratory rate Body temperature Oxygen saturation Oxygen saturation in Arterial blood by Pulse oximetry Systolic blood pressure Diastolic blood pressure Provider Name and Address Organization Details Last Updated DateTime 5 198.12 cm 22.4 kg/m2 17516.9 2 g 62 /min 18 /min 97.6 [degF] 97 % 97 % 117 mm[Hg] 82 mm[Hg] Sonja Gibbs NP [address] [facility], [address], [place], [address], [facility] 5 14:18:18 Social History Question Answer Notes LastModified by Organizat ion Details LastModified Time Tobacco Smoking Status Former Smoker Sonja Gibbs, [employer] [address] [facility], [address], [place], [address], [place] [facility] 02/14/2023 10:11:47 Do You Have An Advance Directive? Yes FULL CODE No Dialysis And Okay To Use Nutrition-us e Hydration Information not available 02/14/2023 What Is Your Level Of Alcohol Consumption? Occasional Information not available 02/14/2023 How Much Tobacco Do You Chew? None [id number] Information not available 05/02/2020 What Is Your Code Status? Full Code Information not available 02/14/2023 Do You Or Have You Ever Used E-cigarettes Or Vape? Never Used Electronic Cigarettes [id number] Information not available 05/02/2020 Where Do You Live? Apartment Elevator Information not available 02/19/2023 Legal Guardian? No Informati on not available 02/14/2023 Do You Have A Medical Power Of Sales Marketing Director? Yes [id number] Information not available 05/02/2020 What Was The [...] Used Smokeless Tobacco? Never Used Smokeless Tobacco [id number] Information not available 05/02/2020 Do You Use Any Illicit Or Recreational Drugs? No Information not available 02/14/2023 Has Tobacco Cessation Counseling Been Provided? No N/a As Pt. No Longer Smokes Information not available 02/19/2023 How Many Years Have You Smoked Tobacco? 40 [id number] Information not available 05/02/2020 Do You Have [...] Influenza, adjuvanted, quadrivalent, PF 2 completed Nafisa Patel [facility] 08/19/2023 09:57:53 Influenza, adjuvanted, quadrivalent, PF 3 [facility]23 11:45:01 pneumococcal polysaccharide PPV23 8 completed Sade Little [facility] 05/07/2024 15:50:52 influenza, unspecified formulation 4 completed Sade Little [facility] 05/07/2024 15:51:08 SARS-COV-2 (COVID-19) vaccine, UNSPECIFIED 1 completed Sade Little [facility] 05/07/2024 15:51:23 SARS-COV-2 (COVID-19) vaccine, UNSPECIFIED 1 completed Sade Little [facility] 05/07/2024 15:51:30 SARS-COV-2 (COVID-19) vaccine, UNSPECIFIED 3 completed Sade Little [facility] 05/07/2024 15:51:38 Past Encounters Encounter ID Performer Location Encounter Start Date Encounter Closed Date Diagnosis/Indication Diagnosis SNOMED-CT Code Diagnosis ICD10 Code Diagnosis Note [id number] MARIE TORRES NP [address] [address] 06/22/2024 12:27:29 06/23/2024 09:31:59 Gastroesophageal reflux disease without esophagitis 979404212 K21.9 Using TUMS frequently for GERD/GI sx.Start pepcid 20 mg bidMonitor sx.If remain problemati c, consider trial of PPI [id number] Sonja Gibbs NP [facility] [address] [place] [address] 06/23/2024 13:31:14 06/24/2024 12:10:49 Asthenia 30501375 R53.1 remains with weakness to left leg and right armPT/OT eval and treat prn, off regular therapymon itor Constipation 16945139 K5 9.09 unclear why bowel meds decreased recently, now with 2 days of constipati on and continues with this every couple of days give mom 30 cc and bisacodyl 10 pr supp nowcont miralax 17 gms prn daily(sche duled)cydney a plus 2 tabs dailydc docusateMo nitor bowel function Spinal mg nosis of lumbar region 49109375 M48.062 With chronic back pain. hx of [...] Apple 06/24 for right shoulder painalso 07/29/24 [facility] spine and sport at 1 pm. contPT/OT for strengthen ing, balance, gait training, safety and function prnremains barrington lift at this timeContin ue fall precaution s.Monitor for safety.Mon itor pain controlCel ebrex remains on hold. Pain in right arm 307726 004 M79.601 Denies trauma or injury. feels it is improving. has decreased rom and lymphedema for some time nowcontphy siatry prn consultedc onttyl 1000 mg po tid and lidocaine patch which is helpingsch eduled Oxycodone 10 mg po q 6 hours and dc prn doses for pain.cyclo benzaprine bidMonitor closely.se e above for management Osteoarthr itis of knee 610741536 M17.12 Z96.652 LTKR originally done on 02/11remains [...] 06/17monit or Chronic di astolic heart failure 699559605 I50.32 Pt says he never had any [...] fluid status, wts and labs. Diabetes mellitus 485649 09 E11.9 Last HgA1C was 7.9 in 11/2023.Fol lowed by endocrine [place] [facility].Contin uetrulicit y 1.5 weekly, tresiba 35 U qd, metformin 500 mg BID, januvia 25 mg qd, and SSIMonitor fingerstic ks TID and HgA1C as outpt. Essential hypertension 80881631 I10 stable 133/82Cont inue meds as above and amlodipine 2.5 mg qd.Monitor BP and labsDaily BPs ordered. Depressive disorder 3548 9007 F32.89 In hx.On no meds.Monit or mood.Psych consult prn. Benign pro static hyperplasia without outflow obstruction 118007731 N40.0 In hx, with some issues with retention at times.Cont inuetamsul osin 0.4 mg qd. [id number] Sonja Gibbs NP [address] [address] 06/25/2024 10:45:21 06/28/2024 14:12:37 Asthenia 73324082 R53.1 remains with weakness to left leg and right arm06/25 right arm and left knee brace on in am and off in pm per dr anderson's ordersPT/O T eval and treat prn, off regular therapymon itor Spinal mg nosis of lumbar region 13673292 M48.062 With chronic back pain. hx of [...] and off in pmfu after MRI 07/29/24 [facility] spine and sport at 1 pm sched from outside provider contPT/OT for strengthen ing, balance, gait training, safety and function prnremains barrington lift at this timeContin ue fall precaution s.Monitor for safety.Mon itor pain controlCel ebrex remains on hold. Pain in right arm 028626 004 M79.601 Denies trauma or injury. feels [...] above for management Osteoarthr itis of knee 722677929 M17.12 Z96.652 LTKR originally done on 02/11remains [...] ext today on 06/17monit or Diabetes mellitus 029206 09 E11.9 Last HgA1C was 7.9 in 11/2023.Fol lowed by endocrine at [facility].with BS of 58 on 06/25 and similar on 06/23, remains asymptomat icContinue trulicity 1.5 weekly, metformin 500 mg BID, januvia 25 mg qd, and SSI06/25 decrease (degludec) tresiba 30 U qd to 26 unitsMonit or fingerstic ks TID and HgA1C as outpt. [id number] MARIE TORRES NP [facility] [address] [address] 07/01/2024 11:24:41 07/02/2024 11:53:48 Constipation 32504847 K59.09 Documented BM 06/24, 06/28Pt. states no [...] to scheduled dailyTo ER if condition worsens [id number] Sonja Gibbs NP [facility] [address] [address] 07/14/2024 13:30:49 07/16/2024 10:19:43 Diabetes mellitus 83845359 E11.9 Last HgA1C was 7.9 in 11/2023.Fol lowed by endocrine at [facility].with BS of 44 on 07/15 and similar in past, remains asymptomat icContinue trulicity 1.5 weekly, metformin 500 mg BID, januvia 25 mg qd, and SSI1/8 decrease (degludec) tresiba 26 U qd to 20 unitsMonit or fingerstic ks TID and HgA1C as outpt.of note was on 35 units of insulin in recent past Asthenia 99553927 R53.1 remains with weakness to left leg and right arm12/20 right arm and left knee brace on in am and off in pm per dr anderson's ordersPT/O T eval and treat prn, off regular therapymon itor [id number] Sonja Gibbs NP [address] [address] 07/22/2024 14:17:32 07/23/2024 15:07:54 Constipation 19801913 K59.09 with regular bm per patient todayCurre ntly no abd. pain, no N/V.BS i8Jodyicbp e fluids, dietary fiber.cont senna plus 2 tabs qdmiralax dailyhouse bowel protocol prn Diabetes mellitus 786982 09 E11.9 Last HgA1C was 7.9 in 11/2023.Fol lowed by endocrine [place] [facility] with multiple low BS in [facility] trulicity 1.5 weeklymetf ormin 500 mg BIDanuvia 25 mg qd, and SSI(deglud ec)tresiba 20 unitsMonit or fingerstic ks TID and HgA1C as outpt.(of note was on 35 units of insulin in recent past) Asthenia 83460518 R53.1 remains with weakness to left leg and right arm, and today with right leg weaknessri ght arm and left knee brace on in am and off in pm per dr anderson's ordersPT/O T eval and treat prn, off regular therapymon itor Spinal mg nosis of lumbar region 91284065 M48.062 With chronic back pain. hx of [...] and off in pmfu after MRI sched 5 [facility] spine and sport at 1 pm sched from outside providerco ntPT/OT for strengthen ing, balance, gait training, safety and function prnremains barrington lift at this timeContin ue fall precaution s.Monitor for safety.Margareth mccullough pain controlCel ebrex remains on hold. Pain in right arm 448243 004 M79.601 Denies trauma or injury. feels [...] above for management Osteoarthr itis of knee 293132982 M17.12 Z96.652 LTKR originally done on 02/11remains [...] am and off in pm per dr epstien's ordersu/s of bilateral lower ext neg for acute concernsmo nitor Chronic di astolic heart failure 419867166 I50.32 per hosp report of CHF.he never [...] fluid status, wts and labs. Essential hypertension 10157712 I10 stableCont inue meds as above and amlodipine 2.5 mg qd.Monitor BP and labsDaily BPs ordered. Depressive disorder 3548 9007 F32.89 In hx.On no meds.Monit or mood.Psych consult prn. Benign pro static hyperplasia without outflow obstruction 604762919 N40.0 In hx, with some issues with retention at times.Cont inuetamsul osin 0.4 mg qd. Gastroesop hageal reflux disease without esophagitis 273812955 K21.9 Using TUMS frequently for GERD/GI sx. resolvingc ontpepcid 20 mg bidMonitor sx.If remain problemati c, consider trial of PPI Nausea and vomiting 1693 2000 R11.2 resolvedse e belowzofra n 4 mg po q 6 hours prn n/v x 30 days Chronic ki dney disease stage 2 535676854 N18.2 At baseline.C ontinue to avoid nephrotoxi c meds as able.Monit or labs.Renal consult prn. Hypercholesterolemia 136 64173 E78.2 Continueat orvastatin 20 mg qdfenofibr ate 145 mg qdvascepa 2 g BID,ASA 81 mg qd.Monitor labs as outpt. Health Concerns Section Related Observation LastModified by Organization Detai ls LastModified Time None Recorded Concern Status LastModified by Organization Details LastModified Time None Recorded Payers Encounter Date Sequence Insurance Name Policy Number Policy Richardson Covered Member ID Richardson Member ID Guarantor Name 07/22/2024 1 [facility] - DOS ON OR AFTER 2022 - MEDICARE ADVANTAGE [place] (MEDICARE REPLACEMENT/ADV ANTAGE - PPO) Carlos Cabrera [id number] Carlos Cabrera Notes Date Note Type Note Provider Name and Address Organization Details Recorded Time 07/22/2024 text/html Carlos is seen to day for a 90 day routine visit. Carlos was originally admitted on 05/06 after a hospitalization for CHF exacerbation, edema, and weakness. Since here at [facility]: He has worked with rehab, but then plateaued and is now on usp care here. He is no longer receiving therapy. He continues to need 2 max assist for transfers and requires a barrington lift. He continues to request to go home but reports he lives alone and can only get one FIELD INTERVIEWER for a few hours a day currently. Social work requested to talk with him about plan. Note: SS looked in to getting him a power wheelchair, but [employer] said as long as he was here he wouldn't qualify, but would be able to get one if he goes home. He states he has 5 hr/day of FIELD INTERVIEWER time and social work states he has 54 hrs/wk of FIELD INTERVIEWER time. He has had some constipation and a few occassions and resolved wtih mom, suppository, and fleets enema. He remains on senna plus 2 tabs with oxycodone use for chronic pain. Pt has had multiple low BS in the 40s-50s mostly in the am. He remained asymptomatic with the low BS. Patient given juice and meal with BS improving and lantus reduced on a few visits. While here a right shoulder xray and U/S done for swelling to lower right fingers both came back without fracture, dislocation, or thrombus. He is followed outpt by vascular for his lymphedema. His pcp Dr Jacinto referred him to [facility] spine and sport with appt 07/29/24 at 1pm per pt. He was also seen by pain management here. He is followed by vascular and [facility] Dr Apple for the weakness. An MRI of lumbar spine was done and now [facility] requesting MRI of cervical neck for ?relation to the right arm weakness and numbness scheduled for 08/01/24. OVerall -On exam, Carlos is in bed in NAD. He requests to go home and states social worker aide is going to talk with him. Denies any constipation or abd pain. He is not able to move either leg much today when asked to raise his legs, which is a change as he was able to move the right leg more in past. He remains with weakness to the right arm and left leg. Sonja Gibbs, DIAMOND [address] [facility], [address], [place], [address], [facility] - [employer] 07/22/2024 18:36:19
--- OUTSIDE RECORDS SUMMARY | 2024-07-30 13:19 | XMS_ITS | Encounter Summary ---
Author Organization [facility] Address [address] [place] [address] Care Team Providers Care Recreation Leader Name Role Phone Tram Álvarez MD Primary Care Provider [phone] Encounter Details Date Type Department Care Team (Late st Contact Info) Description 05/14/2024 Lab Requisition [facility] - Main Lab [address] [facility] [address] Prince Le MD [address] [facility] [address] [place], [address] Essential (primary) hypertension Social History Tobacco Use Types Packs/Day Years [...] Encounters Date Type Department Care Team (Late st Contact Info) Description 08/12/2024 8:30 AM EST Office Visit Orthopedic Surgery - [place] [address] [phone] Clifford Benson, DPM [address] [address] documented as of this encounter Procedures Procedure Name Priority Date/Time Associated Diagnosis Comments COMPLETE BLOOD COUNT Routine 05/17/2024 6:41 AM EST Essential (primary) hypertension BASIC METABOLIC PANEL Routine 05/17/2024 6:41 AM EST Essential (primary) hypertension documented in this encounter Results * (ABNORMAL) Basic metabolic panel (05/17/2024 6:41 AM EST) Sodium 143 133 - 145 mmol/L LAB CHEMISTRY METHOD 05/17/2024 10:[address] [facility] Potassium 4.5 3.5 - 5.5 mmol/L LAB CHEMISTRY METHOD 05/17/2024 10:[address] [facility] Chloride 110 96 - 110 mmol/L LAB CHEMISTRY METHOD 05/17/2024 10:[address] [facility] CO2 27 21 - 32 mmol/L LAB CHEMISTRY METHOD 05/17/2024 10:[address] [facility] Anion Gap 6 3 - 11 LAB CHEMISTRY METHOD 05/17/2024 10:[address] [facility] Glucose 99 70 - 100 mg/dL LAB CHEMISTRY METHOD 05/17/2024 10:[address] [facility] BUN 37(H) 5 - 25 mg/dL LAB CHEMISTRY METHOD 05/17/2024 10:[address] [facility] Creatinine 1.29 0.70 - 1.30 mg/dL LAB CHEMISTRY METHOD 05/17/2024 10:[address] [facility] eGFR 60 >=60 mL/min/1. 73m2 LAB CHEMISTRY METHOD 05/17/2024 10:[address] [facility] Comment:Calculation based on the??Chronic Kidney Disease Epidemiology Collaboration (CKD-EPI) equation refit??without adjustment for race. BUN/Creatinine Ratio 28.7 LAB CHEMISTRY METHOD 05/17/2024 10:43 AM EST [facility] Calcium 9.3 8.5 - 10.5 mg/dL LAB CHEMISTRY METHOD 05/17/2024 10:[address] [facility] Blood Venous blood specimen / Unknown Venipuncture / Unknown 05/17/2024 6:41 AM EST 05/17/2024 9:49 AM EST Prince Le MD LAB BLOOD ORDERABLES [facility] [address] [place] [address], * (ABNORMAL) Complete blood count (05/17/2024 6:41 AM EST) [facility] WBC 9.0 4.8 - 10.8 K/mcL LAB HEMETOLOGY METHOD 05/17/2024 10:23 AM EST [facility] RBC 5.50 4.50 - 5.50 M/mcL LAB HEMETOLOGY METHOD 05/17/2024 10:23 AM EST [facility] Hemoglobin 15.0 13.5 - 17.5 g/dL LAB HEMETOLOGY METHOD 05/17/2024 10:[address] [facility] Hematocrit 48.3 42.0 - 54.0 % LAB HEMETOLOGY METHOD 05/17/2024 10:[address] [facility] MCV 88.0 79.0 - 98.0 FL LAB HEMETOLOGY METHOD 05/17/2024 10:[address] [facility] MCH 27.3 27.0 - 32.0 pcg LAB HEMETOLOGY METHOD 05/17/2024 10:[address] [facility] MCHC 31.1(L) 32.0 - 37.0 g/dL LAB HEMETOLOGY METHOD 05/17/2024 10:23 AM EST [facility] RDW 16.6(H) 11.0 - 15.0 % LAB HEMETOLOGY METHOD 05/17/2024 10:[address] [facility] Platelets 240 130 - 400 K/mcL LAB HEMETOLOGY METHOD 05/17/2024 10:23 AM EST [facility] MPV 13.4(H) 7.0 - 11.0 FL LAB HEMETOLOGY METHOD 05/17/2024 10:[address] [facility] NRBC 0.0 <1.0 % LAB HEMETOLOGY METHOD 05/17/2024 10:23 AM EST [facility] NRBC Absolute 0.00 <0.10 K/[facility] LAB HEMETOLOGY METHOD 05/17/2024 10:23 AM EST [facility] Blood Venous blood specimen / Unknown Venipuncture / Unknown 05/17/2024 6:41 AM EST 05/17/2024 9:51 AM EST Prince Le MD LAB BLOOD ORDERABLES [facility] [address] [place] [address], documented in this encounter Visit Diagnoses Diagnosis Essential (primary) hypertension Unspecified essential hypertension documented in this encounter Care Teams Recreation Leader Relationship Specialty Start Date End Date Tram Álvarez MD [address] [facility] , [address] [facility] D/B/A: [facility] JAS Duque PCP - General Internal Medicine 03/30/18 documented as of this encounter
--- OUTSIDE RECORDS SUMMARY | 2024-07-30 13:19 | XMS_ITS | Encounter Summary ---
Author Organization [facility] Address [address] [place] [address] Care Team Providers Care Inserter Promotional Item Name Role Phone Tram Álvarez MD Primary Care Provider [phone] Encounter Details Date Type Department Care Team (Late st Contact Info) Description 05/21/2024 Lab Requisition [facility] - Main Lab 299 [facility] [place] [address] Prince Le MD 38 [facility] 204 [place], [address] Essential (primary) hypertension Social History Tobacco [...] AM EST Office Visit Orthopedic Surgery - [place] [address] [phone] Clifford Benson, DPM [address] [address] documented as of this encounter Procedures Procedure Name Priority Date/Time Associated Diagnosis Comments COMPLETE BLOOD COUNT Routine 05/24/2024 6:00 AM EST Essential (primary) hypertension BASIC METABOLIC PANEL Routine 05/24/2024 6:00 AM EST Essential (primary) hypertension documented in this encounter Results * (ABNORMAL) Basic metabolic panel (05/24/2024 6:00 AM EST) Sodium 142 133 - 145 mmol/L LAB CHEMISTRY METHOD 05/24/2024 9:02 AM [facility] Potassium 4.2 3.5 - 5.5 mmol/L LAB CHEMISTRY METHOD 05/24/2024 9:02 AM [facility] Chloride 109 96 - 110 mmol/L LAB CHEMISTRY METHOD 05/24/2024 9:02 AM [facility] CO2 28 21 - 32 mmol/L LAB CHEMISTRY METHOD 05/24/2024 9:02 AM [facility] Anion Gap 5 3 - 11 LAB CHEMISTRY METHOD 05/24/2024 9:02 AM [facility] Glucose 129(H) 70 - 100 mg/dL LAB CHEMISTRY METHOD 05/24/2024 9:02 AM [facility] BUN 38(H) 5 - 25 mg/dL LAB CHEMISTRY METHOD 05/24/2024 9:02 AM [facility] Creatinine 1.33(H) 0.70 - 1.30 mg/dL LAB CHEMISTRY METHOD 05/24/2024 9:02 AM [facility] eGFR 58(L) >=60 mL/min/1. 73m2 LAB CHEMISTRY METHOD 05/24/2024 9:02 AM [facility] Comment:Calculation based on the??Chronic Kidney Disease Epidemiology Collaboration (CKD-EPI) equation refit??without adjustment for race. BUN/Creatinine Ratio 28.6 LAB CHEMISTRY METHOD 05/24/2024 9:02 AM [facility] Calcium 9.2 8.5 - 10.5 mg/dL LAB CHEMISTRY METHOD 05/24/2024 9:02 AM [facility] Blood Venous blood specimen / Unknown Venipuncture / Unknown 05/24/2024 6:00 AM EST 05/24/2024 7:45 AM EST Prince Le MD LAB BLOOD ORDERABLES [facility] [address] [place] [address], * (ABNORMAL) Complete blood count (05/24/2024 6:00 AM EST) WBC 9.3 4.8 - 10.8 K/mcL LAB HEMETOLOGY METHOD 05/24/2024 9:03 AM EST [facility] RBC 4.90 4.50 - 5.50 M/mcL LAB HEMETOLOGY METHOD 05/24/2024 9:03 AM [facility] Hemoglobin 13.6 13.5 - 17.5 g/dL LAB HEMETOLOGY METHOD 05/24/2024 9:03 AM [facility] Hematocrit 43.1 42.0 - 54.0 % LAB HEMETOLOGY METHOD 05/24/2024 9:03 AM [facility] MCV 87.4 79.0 - 98.0 FL LAB HEMETOLOGY METHOD 05/24/2024 9:03 AM [facility] MCH 27.6 27.0 - 32.0 pcg LAB HEMETOLOGY METHOD 05/24/2024 9:03 AM [facility] MCHC 31.6(L) 32.0 - 37.0 g/dL LAB HEMETOLOGY METHOD 05/24/2024 9:03 AM [facility] RDW 16.4(H) 11.0 - 15.0 % LAB HEMETOLOGY METHOD 05/24/2024 9:03 AM [facility] Platelets 249 130 - 400 K/mcL LAB HEMETOLOGY METHOD 05/24/2024 9:03 AM [facility] MPV 13.1(H) 7.0 - 11.0 FL LAB HEMETOLOGY METHOD 05/24/2024 9:03 AM [facility] NRBC 0.0 <1.0 % LAB HEMETOLOGY METHOD 05/24/2024 9:03 AM EST [facility] NRBC Absolute 0.00 <0.10 K/mcL LAB HEMETOLOGY METHOD 05/24/2024 9:03 AM EST [facility] Blood Venous blood specimen / Unknown Venipuncture / Unknown 05/24/2024 6:00 AM EST 05/24/2024 7:45 AM EST Prince Le MD LAB BLOOD ORDERABLES [facility] [address] [place], [place] [address] [phone] documented in this encounter Visit Diagnoses Diagnosis Essential (primary) hypertension Unspecified essential hypertension documented in this encounter Care Teams Inserter Promotional Item Relationship Specialty Start Date End Date Tram Álvarez MD 2 [facility] , [address] [place] [address] Physician Associ D/B/A: [facility] [place], [place] PCP - General Internal Medicine 03/30/18 documented as of this encounter
--- OUTSIDE RECORDS SUMMARY | 2024-07-30 13:19 | XMS_ITS | Encounter Summary ---
Author Organization [facility] Address [address] [place] [address] Care Team Providers Care Books Salesperson Name Role Phone Tram Álvarez MD Primary Care Provider [phone] Encounter Details Date Type Department Care Team (Late st Contact Info) Description 07/16/2024 Lab Requisition [facility] - Main Lab 299 [facility] [place] [address] Prince Le MD 38 [facility] 204 [place], [address] Type 2 diabetes mellitus without complications (CMS/HCC) Social History Tobacco Use Types Packs/Day Years [...] AM EST Office Visit Orthopedic Surgery - [place] [address] [phone] Clifford Benson DPM [address] [address] documented as of this encounter Procedures Procedure Name Priority Date/Time Associated Diagnosis Comments COMPLETE BLOOD COUNT Routine 07/16/2024 8:00 AM EST Type 2 diabetes mellitus without complications (CMS/HCC) C-REACTIVE PROTEIN Routine 07/16/2024 8: 00 AM EST Type 2 diabetes mellitus without complications (CMS/HCC) COMPREHENSIVE METABOLIC PANEL Routine 07/16/2024 8:00 AM EST Type 2 diabetes mellitus without complications (CMS/HCC) documented in this encounter Results * (ABNORMAL) C-reactive protein (07/16/2024 8:00 AM EST) Pathologist [facility] C-Reactive Protein 1.30(H) <=0.50 mg/dL LAB CHEMISTRY METHOD 07/16/2024 12:50 PM EST [facility] Blood Venous blood specimen / Unknown Venipuncture / Unknown 07/16/2024 8:00 AM EST 07/16/2024 11:21 AM EST Prince Le MD LAB BLOOD ORDERABLES [facility] [address] [place] [address], * (ABNORMAL) Comprehensive metabolic panel (07/16/2024 8:00 AM EST) [facility] Sodium 137 133 - 145 mmol/L LAB CHEMISTRY METHOD 07/16/2024 1:13 PM [facility] Potassium 5.1 3.5 - 5.5 mmol/L LAB CHEMISTRY METHOD 07/16/2024 1:13 PM [facility] Chloride 103 96 - 110 mmol/L LAB CHEMISTRY METHOD 07/16/2024 1:13 PM [facility] CO2 27 21 - 32 mmol/L LAB CHEMISTRY METHOD 07/16/2024 1:13 PM [facility] Anion Gap 7 3 - 11 LAB CHEMISTRY METHOD 07/16/2024 1:13 PM [facility] Glucose 40(L) 70 - 100 mg/dL LAB CHEMISTRY METHOD 07/16/2024 1:13 PM [facility] BUN 35(H) 5 - 25 mg/dL LAB CHEMISTRY METHOD 07/16/2024 1:13 PM [facility] Creatinine 1.27 0.70 - 1.30 mg/dL LAB CHEMISTRY METHOD 07/16/2024 1:13 PM [facility] eGFR 62 >=60 mL/min/1. 73m2 LAB CHEMISTRY METHOD 07/16/2024 1:13 PM [facility] Comment:Calculation based on the??Chronic Kidney Disease Epidemiology Collaboration (CKD-EPI) equation refit??without adjustment for race. BUN/Creatinine Ratio 27.6 LAB CHEMISTRY METHOD 07/16/2024 1:13 PM [facility] Calcium 9.0 8.5 - 10.5 mg/dL LAB CHEMISTRY METHOD 07/16/2024 1:13 PM [facility] AST (SGOT) 18 10 - 42 unit/L LAB CHEMISTRY METHOD 07/16/2024 1:13 PM [facility] ALT (SGPT) 19 10 - 60 unit/L LAB CHEMISTRY METHOD 07/16/2024 1:13 PM [facility] Alkaline Phosphatase 62 42 - 121 unit/L LAB CHEMISTRY METHOD 07/16/2024 1:13 PM [facility] Total Protein 6.7 6.0 - 8.0 g/dL LAB CHEMISTRY METHOD 07/16/2024 1:13 PM [facility] Albumin 3.5 3.2 - 5.0 g/dL LAB CHEMISTRY METHOD 07/16/2024 1:13 PM [facility] Total Bilirubin 0.4 0.0 - 1.4 mg/dL LAB CHEMISTRY METHOD 07/16/2024 1:13 PM [facility] Blood Venous blood specimen / Unknown Venipuncture / Unknown 07/16/2024 8:00 AM EST 07/16/2024 11:21 AM EST Prince Le MD LAB BLOOD ORDERABLES [facility] [address] [place] [address], * (ABNORMAL) Complete blood count (07/16/2024 8:00 AM EST) [facility] WBC 10.9(H) 4.8 - 10.8 K/mcL LAB HEMETOLOGY METHOD 07/16/2024 11:53 AM [facility] RBC 4.90 4.50 - 5.50 M/mcL LAB HEMETOLOGY METHOD 07/16/2024 11:53 AM [facility] Hemoglobin 13.4(L) 13.5 - 17.5 g/dL LAB HEMETOLOGY METHOD 07/16/2024 11:53 AM [facility] Hematocrit 41.6(L) 42.0 - 54.0 % LAB HEMETOLOGY METHOD 07/16/2024 11:53 AM [facility] MCV 85.1 79.0 - 98.0 FL LAB HEMETOLOGY METHOD 07/16/2024 11:53 AM [facility] MCH 27.4 27.0 - 32.0 pcg LAB HEMETOLOGY METHOD 07/16/2024 11:53 AM [facility] MCHC 32.2 32.0 - 37.0 g/dL LAB HEMETOLOGY METHOD 07/16/2024 11:53 AM [facility] RDW 18.3(H) 11.0 - 15.0 % LAB HEMETOLOGY METHOD 07/16/2024 11:53 AM [facility] Platelets 413(H) 130 - 400 K/mcL LAB HEMETOLOGY METHOD 07/16/2024 11:53 AM [facility] MPV 12.4(H) 7.0 - 11.0 FL LAB HEMETOLOGY METHOD 07/16/2024 11:53 AM [facility] NRBC 0.0 <1.0 % LAB HEMETOLOGY METHOD 07/16/2024 11:53 AM [facility] NRBC Absolute 0.00 <0.10 K/mcL LAB HEMETOLOGY METHOD 07/16/2024 11:53 AM EST [facility] Blood Venous blood specimen / Unknown Venipuncture / Unknown 07/16/2024 8:00 AM EST 07/16/2024 11:21 AM EST Prince Le MD LAB BLOOD ORDERABLES [facility] [address] [place] [address], documented in this encounter Visit Diagnoses Diagnosis Type 2 diabetes mellitus without complications (CMS/HCC) documented in this encounter Care Teams Books Salesperson Relationship Specialty Start Date End Date Tram Álvarez MD 2 [facility] , [address] [facility] Physician Associ D/B/A: [facility] JAS Duque PCP - General Internal Medicine 03/30/18 documented as of this encounter
--- OUTSIDE RECORDS SUMMARY | 2024-07-30 13:19 | XMS_ITS | Encounter Summary ---
Author Organization [facility] Address [address] [place] [address] Care Team Providers Care Insurance And Financial Services Agent Name Role Phone Tram Álvarez MD Primary Care Provider [phone] Encounter Details Date Type Department Care Team (Late st Contact Info) Description 07/22/2024 Lab Requisition [facility] - Main Lab 299 [facility] [place] [address] Prince Le MD 38 [facility] 204 [place], [address] Type 2 diabetes mellitus without complications [...] AM EST Office Visit Orthopedic Surgery - [place] [address] [phone] Clifford Benson DPM [address] [address] documented as of this encounter Procedures Procedure Name Priority Date/Time Associated Diagnosis Comments COMPLETE BLOOD COUNT Routine 07/23/2024 6:52 AM EST Type 2 diabetes mellitus without complications (CMS/HCC) C-REACTIVE PROTEIN Routine 07/23/2024 6: 52 AM EST Type 2 diabetes mellitus without complications (CMS/HCC) COMPREHENSIVE METABOLIC PANEL Routine 07/23/2024 6:52 AM EST Type 2 diabetes mellitus without complications (CMS/HCC) documented in this encounter Results * (ABNORMAL) C-reactive protein (07/23/2024 6:52 AM EST) Pathologist [facility] C-Reactive Protein 0.76(H) <=0.50 mg/dL LAB CHEMISTRY METHOD 07/23/2024 10:47 AM EST [facility] Blood Venous blood specimen / Unknown Venipuncture / Unknown 07/23/2024 6:52 AM EST 07/23/2024 9:26 AM EST Prince Le MD LAB BLOOD ORDERABLES [facility] [address] [place] [address], * (ABNORMAL) Comprehensive metabolic panel (07/23/2024 6:52 AM EST) [facility] Sodium 137 133 - 145 mmol/L LAB CHEMISTRY METHOD 07/23/2024 10:47 AM [facility] Potassium 5.3 3.5 - 5.5 mmol/L LAB CHEMISTRY METHOD 07/23/2024 10:47 AM [facility] Chloride 102 96 - 110 mmol/L LAB CHEMISTRY METHOD 07/23/2024 10:47 AM [facility] CO2 28 21 - 32 mmol/L LAB CHEMISTRY METHOD 07/23/2024 10:47 AM [facility] Anion Gap 7 3 - 11 LAB CHEMISTRY METHOD 07/23/2024 10:47 AM [facility] Glucose 78 70 - 100 mg/dL LAB CHEMISTRY METHOD 07/23/2024 10:47 AM [facility] BUN 39(H) 5 - 25 mg/dL LAB CHEMISTRY METHOD 07/23/2024 10:47 AM [facility] Creatinine 1.58(H) 0.70 - 1.30 mg/dL LAB CHEMISTRY METHOD 07/23/2024 10:47 AM [facility] eGFR 47(L) >=60 mL/min/1. 73m2 LAB CHEMISTRY METHOD 07/23/2024 10:47 AM [facility] Comment:Calculation based on the??Chronic Kidney Disease Epidemiology Collaboration (CKD-EPI) equation refit??without adjustment for race. BUN/Creatinine Ratio 24.7 LAB CHEMISTRY METHOD 07/23/2024 10:47 AM [facility] Calcium 9.5 8.5 - 10.5 mg/dL LAB CHEMISTRY METHOD 07/23/2024 10:47 AM [facility] AST (SGOT) 25 10 - 42 unit/L LAB CHEMISTRY METHOD 07/23/2024 10:47 AM [facility] ALT (SGPT) 26 10 - 60 unit/L LAB CHEMISTRY METHOD 07/23/2024 10:47 AM [facility] Alkaline Phosphatase 68 42 - 121 unit/L LAB CHEMISTRY METHOD 07/23/2024 10:47 AM [facility] Total Protein 6.9 6.0 - 8.0 g/dL LAB CHEMISTRY METHOD 07/23/2024 10:47 AM [facility] Albumin 3.5 3.2 - 5.0 g/dL LAB CHEMISTRY METHOD 07/23/2024 10:47 AM [facility] Total Bilirubin 0.4 0.0 - 1.4 mg/dL LAB CHEMISTRY METHOD 07/23/2024 10:47 AM [facility] Blood Venous blood specimen / Unknown Venipuncture / Unknown 07/23/2024 6:52 AM EST 07/23/2024 9:26 AM EST Prince Le MD LAB BLOOD ORDERABLES [facility] [address] [place] [address], * (ABNORMAL) Complete blood count (07/23/2024 6:52 AM EST) [facility] WBC 9.2 4.8 - 10.8 K/mcL LAB HEMETOLOGY METHOD 07/23/2024 10:13 AM [facility] RBC 4.90 4.50 - 5.50 M/mcL LAB HEMETOLOGY METHOD 07/23/2024 10:13 AM [facility] Hemoglobin 13.6 13.5 - 17.5 g/dL LAB HEMETOLOGY METHOD 07/23/2024 10:13 AM [facility] Hematocrit 41.2(L) 42.0 - 54.0 % LAB HEMETOLOGY METHOD 07/23/2024 10:13 AM [facility] MCV 83.7 79.0 - 98.0 FL LAB HEMETOLOGY METHOD 07/23/2024 10:13 AM [facility] MCH 27.6 27.0 - 32.0 pcg LAB HEMETOLOGY METHOD 07/23/2024 10:13 AM [facility] MCHC 33.0 32.0 - 37.0 g/dL LAB HEMETOLOGY METHOD 07/23/2024 10:13 AM [facility] RDW 19.0(H) 11.0 - 15.0 % LAB HEMETOLOGY METHOD 07/23/2024 10:13 AM [facility] Platelets 364 130 - 400 K/mcL LAB HEMETOLOGY METHOD 07/23/2024 10:13 AM [facility] MPV 12.2(H) 7.0 - 11.0 FL LAB HEMETOLOGY METHOD 07/23/2024 10:13 AM [facility] NRBC 0.0 <1.0 % LAB HEMETOLOGY METHOD 07/23/2024 10:13 AM [facility] NRBC Absolute 0.00 <0.10 K/mcL LAB HEMETOLOGY METHOD 07/23/2024 10:13 AM EST [facility] Blood Venous blood specimen / Unknown Venipuncture / Unknown 07/23/2024 6:52 AM EST 07/23/2024 9:26 AM EST Prince Le MD LAB BLOOD ORDERABLES [facility] [address] [place] [address], documented in this encounter Visit Diagnoses Diagnosis Type 2 diabetes mellitus without complications (CMS/HCC) documented in this encounter Care Teams Insurance And Financial Services Agent Relationship Specialty Start Date End Date Tram Álvarez MD [address] [place] [address] , [address] [facility] Physician Associ D/B/A: [facility] [place], [place] PCP - General Internal Medicine 03/30/18 documented as of this encounter
--- OUTSIDE RECORDS SUMMARY | 2024-07-30 13:19 | XMS_ITS | Clinical Summary ---
Author Organization [employer] Address [address] [facility] [address] [place] [address] Care Team Providers Care Anthropology And Archeology Instructor Name Role Phone Unavailable Primary Care Provider Unavailabl e Encounters Date Type Department Care Team Description 04/29/2024 Telephone [facility] [address] [place] [address] Guy Calels MD from Last 3 Months Social History Tobacco Use Types Packs/Day Years Used Date Smoking Tobacco: Never Assessed Sex and Gender Information Value Date Recorded Sex Assigned at Male 05/06/2022 10:29 AM EDT Legal Sex Male 10:29 AM EDT Gender Identity Not on file Sexual Orientation Not on file Plan of Treatment Health Maintenance Due Date Last Done Comments CT Colonography 1955 Colonoscopy 1955 Colorectal Cancer Screening 1955 Depression Screening 1955 FIT DNA/Cologuard 1955 FIT 1955 FOBT 1955 Lipid Panel 1955 Sigmoidoscopy 1955 Alcohol/Substance Use Screening 1967 Tobacco Screening 1967 Zoster Vaccines (1 of 2) 10/04/2005 DTaP/Tdap/Td Vaccines (2 - T d or Tdap) 08/31/2020 08/31/2010 Pneumococcal Vaccine: 65+ Years (2 of 2 - PCV) 10/04/2020 07/09/2010 COVID-19 Vaccine ( - 2023-2 5 season) 2024 Influenza Vaccine (#1) 2024 2, 03/22/2011, 07/09/2010 RSV Patients and Patients Aged 60 years or older (1 - 1-dose 75+ series) 10/04/2030 HIB Vaccines Aged Out No longer eligi [...] patient's age to complete this topic Meningococcal Vaccine Aged Out No jonna amada eligible based on patient's age to complete this topic RSV under 20 months Aged Out No longe r eligible based on patient's age to complete this topic Rotavirus Vaccines Aged Out No longer eligible based on patient's age to complete this topic
--- OUTSIDE RECORDS SUMMARY | 2024-07-30 13:19 | XMS_ITS | Encounter Summary ---
Author Organization [facility] Address [address] [place] [address] Care Team Providers Care Staining Machine Operator Name Role Phone Tram Álvarez MD Primary Care Provider [phone] Encounter Details Date Type Department Care Team (Late st Contact Info) Description 05/28/2024 Lab Requisition [facility] - Main Lab 299 [facility] [place] [address] Prince Le MD 38 [facility] 204 [place], [address] Essential (primary) hypertension Social History Tobacco [...] AM EST Office Visit Orthopedic Surgery - [place] [address] [phone] Clifford Benson, DPM [address] [address] documented as of this encounter Procedures Procedure Name Priority Date/Time Associated Diagnosis Comments COMPLETE BLOOD COUNT Routine 05/31/2024 7:20 AM EST Essential (primary) hypertension BASIC METABOLIC PANEL Routine 05/31/2024 7:20 AM EST Essential (primary) hypertension documented in this encounter Results * (ABNORMAL) Basic metabolic panel (05/31/2024 7:20 AM EST) Sodium 142 133 - 145 mmol/L LAB CHEMISTRY METHOD 05/31/2024 11:37 AM [facility] Potassium 4.5 3.5 - 5.5 mmol/L LAB CHEMISTRY METHOD 05/31/2024 11:37 AM [facility] Chloride 108 96 - 110 mmol/L LAB CHEMISTRY METHOD 05/31/2024 11:37 AM [facility] CO2 28 21 - 32 mmol/L LAB CHEMISTRY METHOD 05/31/2024 11:37 AM [facility] Anion Gap 6 3 - 11 LAB CHEMISTRY METHOD 05/31/2024 11:37 AM [facility] Glucose 104(H) 70 - 100 mg/dL LAB CHEMISTRY METHOD 05/31/2024 11:37 AM [facility] BUN 25 5 - 25 mg/dL LAB CHEMISTRY METHOD 05/31/2024 11:37 AM [facility] Creatinine 1.15 0.70 - 1.30 mg/dL LAB CHEMISTRY METHOD 05/31/2024 11:37 AM [facility] eGFR 69 >=60 mL/min/1. 73m2 LAB CHEMISTRY METHOD 05/31/2024 11:37 AM [facility] Comment:Calculation based on the??Chronic Kidney Disease Epidemiology Collaboration (CKD-EPI) equation refit??without adjustment for race. BUN/Creatinine Ratio 21.7 LAB CHEMISTRY METHOD 05/31/2024 11:37 AM [facility] Calcium 9.2 8.5 - 10.5 mg/dL LAB CHEMISTRY METHOD 05/31/2024 11:37 AM [facility] Blood Venous blood specimen / Unknown Venipuncture / Unknown 05/31/2024 7:20 AM EST 05/31/2024 10:13 AM EST Prince Le MD LAB BLOOD ORDERABLES [facility] [address] [place] [address], * (ABNORMAL) Complete blood count (05/31/2024 7:20 AM EST) [facility] WBC 8.8 4.8 - 10.8 K/mcL LAB HEMETOLOGY METHOD 05/31/2024 10:39 AM EST [facility] RBC 5.10 4.50 - 5.50 M/mcL LAB HEMETOLOGY METHOD 05/31/2024 10:39 AM [facility] Hemoglobin 14.2 13.5 - 17.5 g/dL LAB HEMETOLOGY METHOD 05/31/2024 10:39 AM [facility] Hematocrit 44.7 42.0 - 54.0 % LAB HEMETOLOGY METHOD 05/31/2024 10:39 AM [facility] MCV 87.0 79.0 - 98.0 FL LAB HEMETOLOGY METHOD 05/31/2024 10:39 AM [facility] MCH 27.6 27.0 - 32.0 pcg LAB HEMETOLOGY METHOD 05/31/2024 10:39 AM [facility] MCHC 31.8(L) 32.0 - 37.0 g/dL LAB HEMETOLOGY METHOD 05/31/2024 10:39 AM [facility] RDW 16.5(H) 11.0 - 15.0 % LAB HEMETOLOGY METHOD 05/31/2024 10:39 AM [facility] Platelets 242 130 - 400 K/mcL LAB HEMETOLOGY METHOD 05/31/2024 10:39 AM [facility] MPV 12.5(H) 7.0 - 11.0 FL LAB HEMETOLOGY METHOD 05/31/2024 10:39 AM [facility] NRBC 0.0 <1.0 % LAB HEMETOLOGY METHOD 05/31/2024 10:39 AM EST [facility] NRBC Absolute 0.00 <0.10 [facility] LAB HEMETOLOGY METHOD 05/31/2024 10:39 AM EST [facility] Blood Venous blood specimen / Unknown Venipuncture / Unknown 05/31/2024 7:20 AM EST 05/31/2024 10:16 AM EST Prince Le MD LAB BLOOD ORDERABLES [facility] [address] [place] [address], documented in this encounter Visit Diagnoses Diagnosis Essential (primary) hypertension Unspecified essential hypertension documented in this encounter Care Teams Staining Machine Operator Relationship Specialty Start Date End Date Tram Álvarez MD 2 [facility] , [address] [place] [address] Physician Associ D/B/A: [facility] JAS Duque PCP - General Internal Medicine 03/30/18 documented as of this encounter
--- OUTSIDE RECORDS SUMMARY | 2024-07-30 13:19 | XMS_ITS | Data Portability ---
Author Organization [employer] [facility], [place] - Connected Address [address] [place] [address] Care Team Providers Care Milling Machine Operator Name Role Phone HIM CCA OTHER LANG HERRERA Primary Care Provider Assessment No assessment recorded. Plan of Treatment Reminders Order Date Submit Date Provider Last Modified By Organization Details Last Modified Time Details Appointments None record ed. Lab None record ed. Referral None record ed. Procedures None record ed. Surgeries None record ed. Imaging None record ed. Medication Orders None record ed. Patient TargetsNo targets recorded. Patient InstructionsNo instructions recorded. Reason for Referral None Reported. Medical Equipment None Reported. Medications Name Sig Start Date Stop Date Status Note LastModified by Organization Details LastModified Time celecoxib 200 mg capsule TAKE 1 CAPSULE BY MOUTH TWICE A DAY active Not Available Not Available No t Available cyclobenzapr ine 10 mg tablet TAKE 1 TABLET BY MOUTH EVERY DAY AT BEDTIME NEEDED FOR MUSCLE SPASMS FOR 10 DAYS active Not Available Not Available No t Available latanoprost 0.005 % eye drops INSTILL 1 DROP INTO BOTH EYES EVERY DAY AT NIGHT active Not Available Not Available No t Available acetaminophe n 325 mg tablet TAKE 2 TABLETS ORALLY EVERY 6 HOURS NEEDED FOR PAIN, MILD (PAIN SCALE 1-3) FOR 30 DAYS active Not Available Not Available No t Available atorvastatin 20 mg tablet active Not Available Not Available Not Available clindamycin HCl 300 mg capsule TAKE 2 CAPSULES BY MOUTH ONE HOUR BEFORE APPOINTMENT active Not Available Not Available Not Available senna 8.6 mg tablet active Not Available Not Available Not Available sucralfate 1 gram tablet TAKE 1 TABLET BY MOUTH TWICE A DAY active Not Available Not Available No t Available FreeStyle Lancets 28 gauge USE TO TEST ONCE DAILY active Not Available Not Available N ot Available lisinopril 20 mg tablet active Not Available Not Available Not Available prednisone 20 mg tablet TAKE 1 TABLET BY MOUTH EVERY DAY active Not Available Not Available No t Available hydralazine 25 mg tablet active Not Available Not Available Not Available amlodipine 5 mg tablet active Not Available Not Available No t Available omeprazole 40 mg capsule,karina yed release TAKE 1 CAPSULE BY MOUTH EVERY DAY active Not Available Not Available No t Available aspirin 81 mg tablet,delay ed release TAKE 1 TABLET BY MOUTH EVERY DAY active Not Available Not Available No t Available oxycodone-ac etaminophen 5 mg-325 mg tablet TAKE 1 TABLET BY MOUTH EVERY 6 HOURS NEEDED FOR PAIN active Not Available Not Available No t Available aspirin 325 mg tablet,delay ed release TAKE 1 TABLET ORALLY 2 TIMES A DAY FOR 42 DAYS active Not Available Not Available Not Available docusate sodium 100 mg capsule TAKE 1 CAPSULE BY MOUTH TWICE A DAY FOR 7 DAYS active Not Available Not Available No t Available furosemide 20 mg tablet active Not Available Not Available Not Available benazepril 40 mg tablet active Not Available Not Available Not Available metformin ER 500 mg tablet,exten ded release 24 hr active Not Available Not Available Not Available oxycodone 5 mg tablet TAKE 1 TABLET ORALLY EVERY 6 HOURS NEEDED FOR PAIN (SCALE SCORE 4-6) FOR 30 DAYS active Not Available Not Available Not Available enoxaparin 40 mg/0.4 mL subcutaneous syringe INJECT 40 MG (0.4 ML) SUBCUTANEOU SLY EVERY 24 HOURS FOR 42 DAYS active Not Available Not Available Not Available lactulose 10 gram/15 mL oral solution TAKE 15 ML ORALLY BEDTIME NEEDED FOR CONSTIPATIO N FOR 30 DAYS active Not Available Not Available No t Available Unifine Pentips 31 gauge x 5/16 needle active Not Available Not Available Not Available fenofibrate nanocrystall ized 145 mg tablet active Not Available Not Available Not Available Januvia 25 mg tablet active Not Available Not Available No t Available FreeStyle Lite Meter kit USE TO TEST BLOOD GLUCOSE ONCE A DAY active Not Available Not Available N ot Available FreeStyle Lite Strips USE TO TEST BLOOD GLUCOSE ONCE A DAY active Not Available Not Available N ot Available oxycodone 10 mg tablet TAKE 1 TABLET BY MOUTH EVERY 6 HOURS NEEDED FOR PAIN active Not Available Not Available No t Available cholecalcife rol (vitamin D3) 50 mcg (2,000 unit) capsule TAKE 1 CAPSULE BY MOUTH EVERY DAY active Not Available Not Available No t Available Vitamin D3 50 mcg (2,000 unit) tablet TAKE 1 TABLET BY MOUTH EVERY DAY active Not Available Not Available No t Available icosapent ethyl 1 gram capsule active Not Available Not Available Not Available Trulicity 1.5 mg/0.5 mL subcutaneous pen injector active Not Available Not Available Not Available insulin degludec (U-100) 100 unit/mL (3 mL) subcutaneous pen active Not Available Not Available Not Available Tresiba FlexTouch U-200 insulin 200 unit/mL (3 mL) subcutaneous pen active Not Available Not Available Not Available FreeStyle Tirso 2 Sensor kit active Not Available Not Available N ot Available FreeStyle Tirso 2 [place] active Not Available Not Available Not Available Flowflex COVID-19 Antigen Home Test kit active Not Available Not Available Not Available Vitals Date Recorded Respiratory rate Heart rate Body temperature Oxygen saturation Oxygen saturation in Arterial blood by Pulse oximetry Systolic blood pressure Diastolic blood pressure Provider Name and Address Organization Details Last Updated DateTime 4 18 /min 92 /min 98.5 [degF] 98 % 98 % 170 mm[Hg] 100 mm[Hg] Not Available [facility] - production 4 17:15:57 Social History None recorded. Functional Status None recorded. Mental Status None recorded. Family History Nothing Reported. Medical History No medical history recorded. Past Encounters Encounter ID Performer Location Encounter Start Date Encounter Closed Date Diagnosis/Indication Diagnosis SNOMED-CT Code Diagnosis ICD10 Code Diagnosis Note [id number] Alicia Perez MD [facility] [address] [place] [phone] 04/05/2024 17:15:55 04/05/2024 20:37:12 Accidental fall [id number] I provided real -time medical direction via phone for this encounter, and was available for additional phone based assistance as needed. I have reviewed and agree with the Assessment and Plan as documented by the Educational Technician. Patient given the opportunit y to ask questions. 68 yo M w/ h/o chronic knee pain and intermitte nt weakness (knee frequently gives out ) who had an episode of knee weakness in the shower yesterday. No head strike, was evaluated by EMS. VSS stable at the time. pt requesting visit for vitals check for his PCP's documentat ion. No new complaints , no change in chronic knee pain. pt has follow up with PCP Health Concerns Section Related Observation LastModified by Organization Detai ls LastModified Time None Recorded Concern Status LastModified by Organization Details LastModified Time None Recorded Advance Directives Directive None Recorded Payers Encounter Date Sequence Insurance Name Policy Number Policy Richardson Covered Member ID Richardson Member ID Guarantor Name 04/05/2024 1 [facility] - DOS ON OR AFTER 2022 - DUAL ELIGIBLE - USP OPTIONS AND ONE CARE (MEDICARE REPLACEMENT/ADV ANTAGE - HMO) Carlos Cabrera [id number] Carlos Cabrera Notes Date Note Type Note Provider Name and Address Organization Details Recorded Time 04/05/2024 text/html [facility] Nurse Triage Notes (Inder Sweeney): Chief Complaints: Falls Allergies: Unknown Comments: Box Nailer verified the Pt.'s name//address and phone number. Education provided on the response time and the Pt. was advised to monitor reported s/s and seek emergency treatment if needed. Pt reports increased falls - Last fall was last night - Trip and fall - Denies any injuries - Denies LOC - Member is requesting a wellness - Will schedule a PCP appt. .................. .................. .................. .................. .................. .................. .................. ............... Educational Technician Note From Dangelo Willis: Dispatched to the above address for the reported pt with frequent falls. Upon our arrival the pt was found sitting in his electric chair with a complaint of pain in his left knee. The pt stated he fell last evening and he had called his PCP off and his primary was on vacation. The pt had no visible injury and his only complain was pain in the knee. The pt was advised to seek transport to the Urgent care for some imaging to be done. The pt stated he had spoken to other in regards to this matter and that he just wanted our interaction to be documented for his PCP. This is a chronic issue that he is working on with his PCP[place] [facility] Red flags discussed. .................. .................. .................. .................. .................. .................. .................. ............... Disposition: Fulfilled Alicia Perez MD [address] [facility],[address], [place], [address], MOHINI PAGE 04/05/2024 20:37:09
--- OUTSIDE RECORDS SUMMARY | 2024-07-30 13:19 | XMS_ITS | Clinical Summary ---
Author Organization [facility] Address [address] [place] [address] Care Team Providers Care Movie Operator Name Role Phone Sade Dykes PA-C Primary Care Provider [phone] Source Comments PLEASE NOTE, if this patient is a minor, it may be UNLAWFUL to discuss sensitive information that is contained in these records (such as FAMILY PLANNING, MENTAL HEALTH or SUBSTANCE ABUSE) with the minor patient's parent or other person without the patient's specific authorization.[facility] Allergies Active Allergy Reactions Criticality Noted Date Comments Penicillins 01/05/2013 Medications FLUoxetine (PROZAC) 20 mg tabletIndications:D epression Take 1 Tab by mouth every morning. Active diclofenac (VOLTAREN) 75 mg EC tabletIndications:C ataract Take 1 Tab by mouth 2 (two) times daily. Swallow whole. Do not crush or chew. Active aspirin 81 mg tabletIndications:T ype II or unspecified type diabetes mellitus without mention of complication, uncontrolled Take by mouth once daily. Active citalopram (CELEXA) 20 mg tabletIndications:D epression Take 1 Tab by mouth once daily. Active QUEtiapine (SEROQUEL) 300 mg tabletIndications:D epression Take 1 Tab by mouth nightly at bedtime. Active famotidine (PEPCID) 40 mg tablet Take 1 Tab by mouth once daily. 30 Tab 3 05/12/20 13 Active ondansetron (ZOFRAN) 4 mg tablet Take 1 Tab by mouth every 8 (eight) hours as needed for nausea. 60 Tab 0 05/12/20 13 Active azithromycin (ZITHROMAX Z-NIHARIKA) 250 mg tabletIndications:C ough Take 2 tabs day 1 then 1 tab day 2-5 6 Tab 0 08/09/19 14 Active ergocalciferol, vitamin D2, (VITAMIN D2) 50,000 unit capsule Take 1 Cap by mouth once a week. 4 Cap 3 09/28/19 14 Active insulin needles (BD INSULIN PEN NEEDLE UF) 31 X 11/19 Indications:Diabet es mellitus type 2, uncontrolled Use 1 new needle for each daily injection x 5 450 Each 0 10/29/19 14 Active oxyCODONE (ROXICODONE) 5 mg tabletIndications:A bdominal pain, chronic, right upper quadrant Take 1 Tab by mouth every 6 (six) hours as needed for pain. 60 Tab 0 12/01/19 14 Active Acidophilus-Pectin, [place] 25 million-100 cell-mg tabIndications:Dive rticulosis Take 1 tablet by mouth 2 (two) times daily. As directed by train control electronic technician 100 tablet 3 01/31/20 14 Active benazepril (LOTENSIN) 20 mg tablet Take 1 Tab by mouth once daily. 90 Tab 0 05/25/20 14 Active lancets (FREESTYLE LANCETS) 28 gauge misc 1 Each by miscellaneous (misc) route 3 (three) times daily. 1 Box 3 06/01/20 14 Active insulin lispro (HUMALOG KWIKPEN) 100 unit/mL injectionIndication s:Diabetes mellitus type 2, uncontrolled SQ TID w/meals 70-119 4 u, 120-169 8 u, 170-219 12 u, 220-269 16 u, 270-319 20 u, 320-369 24 u, 370-419 28 u 45 mL 3 06/01/20 14 Active blood sugar diagnostic (FREESTYLE INSULINX TEST STRIPS) stripsIndications:D iabetes mellitus type 2, uncontrolled 1 Strip 3 (three) times daily with meals. Insulin use Dx:250.02 300 Each 0 06/29/20 14 Active Fenofibrate Nanocrystallized (TRICOR) 145 mg tabIndications:Hype rtriglyceridemia Take 145 mg by mouth once daily. 90 Tab 1 07/11/19 15 Active amLODIPine (NORVASC) 5 mg tablet TAKE 1 TABLET BY MOUTH EVERY DAY 90 Tab 0 07/21/19 15 Active hydrochlorothiazide (HYDRODIURIL) 50 mg tablet TAKE 1 TABLET BY MOUTH EVERY DAY 90 Tab 0 07/21/19 15 Active metFORMIN (GLUCOPHAGE) 1,000 mg tabletIndications:D iabetes mellitus type 2, uncontrolled Take 1 Tab by mouth 2 (two) times daily with a meal. 180 Tab 0 10/20/19 15 Active insulin glargine (LANTUS SOLOSTAR) 100 unit/mL (3 mL) injectionIndication s:Diabetes mellitus type 2, uncontrolled Inject 50 Units into the skin nightly at bedtime. 45 mL 3 07/13/19 16 Active sitagliptan (JANUVIA) 100 mg tablet Take 1 Tab by mouth once daily. 90 Tab 0 07/28/19 16 Active Active Problems Problem Noted Date Diagnosed Date Helicobacter pylori ab+ 11/30/2013 Overview (11/30/2013): Treated by Dr. Shayan ROCA Diabetes mellitus type 2, uncontrolled 3 Essential hypertension, benign 01/05/2013 Hypertriglyceridemia 01/05/2013 Depression 01/05/2013 BMI 38.0-38.9,adult 01/05/2013 H/O left knee surgery 01/05/2013 Diverticulosis 01/05/2013 Cataract 01/05/2013 Cervical radiculopathy 01/05/2013 Immunizations Name Administration Dates Next Due INFLUENZA, SEASONAL, INJECTABLE 03/06/2012,03/22,07/09/2010 PNEUMOCOCCAL POLYSACCHARIDE PPV23 07/09/2010 TDAP 08/31/2010 Social History Tobacco Use Types Packs/Day Years Used Date Smoking Tobacco: Some Days Cigarettes Tobacco Cessation:Ready to Q uit: No Alcohol Use Standard Drinks/Week Comments No 0 (1 standard drink = 0.6 oz pur e alcohol) Social Connections Answer Date Recorded Social Connections and Isolation 0 06/14/2020 Financial Resource Strain Answer Date R ecorded Financial Resource Strain 0 2019 Stress Answer Date Recorded Stress 0 06/14/2020 Physical Activity Answer Date Recorded Physical Activity 0 06/14/2020 Food Insecurity Answer Date Recorded Food 0 06/14/2020 Transportation Needs Answer Date Record ed Transportation 0 06/14/2020 Housing Stability Answer Date Recorded Housing 0 06/14/2020 Safety and Environment Answer Date [place] rded Safety 0 06/14/2020 Utilities Answer Date Recorded Utilities 0 06/14/2020 Employment Answer Date Recorded Employment 0 06/14/2020 Sex and Gender Information Value Date Recorded Sex Assigned at Not on file Legal Sex Male 11:36 AM PDT Gender Identity Not on file Sexual Orientation Not on file Last Filed Vital Signs Vital Sign Reading Time Taken Comments Blood Pressure 160/80 06/21/2014 9:33 AM EST Pulse 72 06/21/2014 9:33 AM EST Temperature 36.2 ??C (97.2 ??F) 03/01/2014 3:04 PM ED T Respiratory Rate 18 06/21/2014 9:33 AM EST Oxygen Saturation - - Inhaled Oxygen Concentration - - Weight 112.9 kg (249 lb) 06/21/2014 9:33 AM EST Height 172.7 cm (5' 8 ) 06/21/2014 9:33 AM EST Body Mass Index 37.86 06/21/2014 9:33 AM EST Plan of Treatment Not on file Insurance [id number] Care Teams Movie Operator Relationship Specialty Start Date End Date Sade Dykes PA-C [address] [place] [id number] [facility] - General 04/14/13
--- OUTSIDE RECORDS SUMMARY | 2024-07-30 13:19 | XMS_ITS | Clinical Summary ---
Author Organization [facility] Address [address] [place] [address] Care Team Providers Care Sales Engineer Account Manager Name Role Phone Tram Royal MD Primary Care Provider [phone] Allergies Active Allergy Reactions Criticality Noted Date Comments Ioversol 03/14/2022 Other reaction(s): hives no meds given Penicillins Rash Low 01/05/2013 Medications amLODIPine (NORVASC) 5 MG tablet Take 1 tablet by mouth 1 (one) time each day 07/21/2014 Active aspirin (ST DANIELA) 81 MG EC tablet Take 1 tablet by mouth 1 (one) time each day Active benazepril (LOTENSIN) 20 MG tablet Take 1 tablet by mouth 1 (one) time each day 05/25/2014 Active Dulaglutide (Trulicity) 0.75 MG/0.5ML solution pen-injector 1 (one) time per week Active fenofibrate (TRICOR) 145 MG tablet Take 1 tablet by mouth 1 (one) time each day 07/11/2014 Active hydroCHLOROthia zide (HYDRODIURIL) 25 MG tablet Take 1 tablet by mouth 1 (one) time each day Active insulin glargine (Lantus) 100 UNIT/ML injection Inject 45 Units under the skin 1 (one) time each day Active insulin lispro (HumaLOG) 100 UNIT/ML injection Inject under the skin 3 (three) times a day Active lactulose (CHRONULAC) 10 GM/15ML solution 1 (one) time each day Active lisinopril (PRINIVIL,ZESTR IL) 40 MG tablet Take 1 tablet by mouth 1 (one) time each day Active metFORMIN (GLUCOPHAGE) 1000 MG tablet Take 1 tablet by mouth 2 (two) times a day 10/19/2014 Active Selenium Sulfide 2.25 % shampoo Active sertraline (ZOLOFT) 100 MG tablet Take 2 tablets by mouth 2 (two) times a day Active SITagliptin (JANUVIA) 100 MG tablet Take 1 tablet by mouth 1 (one) time each day 07/28/2015 Active Jardiance 25 MG tablet TAKE 1 TABLET BY MOUTH DAILY FOR 90 DAYS 05/08/2022 Active Active Problems Problem Noted Date Diagnosed Date Chronic kidney disease 09/27/2020 Diabetes mellitus 09/27/2020 Hypertensive heart disease without heart failure 09/27/2020 Benign essential hypertension 01/05/2013 Uncontrolled type 2 diabetes mellitus 01/05/2013 Overview (04/06/2024): Replacing diagnoses that were inactivated after the 04/06/24 Regulatory Import Resolved Problems Problem Noted Date Diagnosed Date Resolved Date Neuropathy 09/27/2020 09/27/2020 Osteoarthritis 09/27/2020 09/27/2020 Raised Helicobacter pylori antibody 11/30/2013 09/27/2020 Overview (09/27/2020): Treated by Dr. Shayan ROCA Treated by Dr. Shayan ROCA Obesity 01/05/2013 09/27/2020 Cataract 01/05/2013 09/27/2020 Cervical radiculopathy 01/05/201309/27 Depressive disorder 01/05/2013 09/28/19 21 Diverticular disease 01/05/2013 021 History of operative procedure on knee 01/05/2013 09/27/2020 Hypertriglyceridemia 01/05/2013 021 Immunizations Name Administration Dates Next Due Influenza TIV (IM) 03/06/2012,03/22/2011, 011 Pneumococcal Polysaccharide 07/09/2010 Tdap 08/31/2010 Family History Relation Status Comments Father Mother Alive Social History Tobacco Use Types Packs/Day Years Used Date Smoking Tobacco: Every Day Cigarettes Smokeless Tobacco: Never Tobacco Cessation:Ready to Q uit: Not Asked; Counseling Given: Not Answered Alcohol Use Standard Drinks/Week Comments Yes 0 (1 standard drink = 0.6 oz pure alcohol) Alcoholic Drinks/day: Occasional social drink Sex and Gender Information Value Date Recorded Sex Assigned at Not on file Legal Sex Male 4:48 PM EST Gender Identity Not on file Sexual Orientation Not on file Last Filed Vital Signs Vital Sign Reading Time Taken Comments Blood Pressure 100/62 12/16/2022 1:22 PM EDT Pulse 79 12/16/2022 1:22 PM EDT Temperature - - Respiratory Rate - - Oxygen Saturation 96% 12/16/2022 1:22 PM EDT Inhaled Oxygen Concentration - - Weight 107 kg (234 lb 12.8 oz) 12/16/2022 1:22 P M EDT Height 172.7 cm (5' 8 ) 12/16/2022 1:22 PM EDT Body Mass Index 35.7 12/16/2022 1:22 PM EDT Plan of Treatment Health Maintenance Due Date Last Done Comments Colorectal Cancer Screening: Annual FOBT 10/04/2004 Colorectal Cancer Screening: Colonoscopy 10/04/2004 Colorectal Cancer Screening: Sigmoidoscopy 10/04/2004 Pneumococcal Vaccine: 65+ Years (2 of 2 - PCV) 07/09/2011 07/09/2010 Diabetes: Hemoglobin A1C 08/04/2020 04/28/2020 Diabetes: Ophthalmology Exam 08/04/2020 Diabetes: Pedal Pulse Checked 08/04/2020 Diabetes: Sensory Foot Exam 08/04/2020 Diabetes: Visual Foot Exam 08/04/2020 Influenza Vaccine (#1) 2024 2, 03/22/2011, 07/09/2010 Hepatitis B Vaccine Aged Out No longe r eligible based on patient's age to complete this topic Procedures Procedure Name Priority Date/Time Associated Diagnosis Comments BLOOD PANEL (HC) Routine 04/28/2020 12:0 0 AM EDT from Last 3 Months or Most Recently Relevant to Health Maintenance Results * (ABNORMAL) Blood Panel (04/28/2020 12:00 AM EDT) Hemoglobin A1C 10.9(H) <5 % [facility] 04/28/2020 us [facility]version [facility] [id number] LICITED RESULTS Final Result PVNMA from Last 3 Months or Most Recently Relevant to Health Maintenance Insurance [address] [place] [id number] [place] [employer] [address] [place] [phone] [place] [employer] Care Teams Sales Engineer Account Manager Relationship Specialty Start Date End Date Trma Royal MD [address] [place], [place] PCP - General 07/17/20
--- OUTSIDE RECORDS SUMMARY | 2024-07-30 13:19 | XMS_ITS | Encounter Summary ---
Author Organization [facility] Address [address] [place] [address] Care Team Providers Care Collar Feller Name Role Phone Tram Álvarez MD Primary Care Provider [phone] Encounter Details Date Type Department Care Team (Late st Contact Info) Description 07/29/2024 Lab Requisition [facility] [address] [facility] [place] [address] Prince Le MD [address] [facility] [address], [phone] Type 2 diabetes mellitus without complications [...] AM EST Office Visit Orthopedic Surgery - [place] [address] [phone] Clifford Benson DPM [address] [address] documented as of this encounter Procedures Procedure Name Priority Date/Time Associated Diagnosis Comments COMPLETE BLOOD COUNT Routine 07/30/2024 7:30 AM EST Type 2 diabetes mellitus without complications (CMS/HCC) C-REACTIVE PROTEIN Routine 07/30/2024 7: 30 AM EST Type 2 diabetes mellitus without complications (CMS/HCC) COMPREHENSIVE METABOLIC PANEL Routine 07/30/2024 7:30 AM EST Type 2 diabetes mellitus without complications (CMS/HCC) documented in this encounter Results * (ABNORMAL) C-reactive protein (07/30/2024 7:30 AM EST) Pathologist [facility] [place] C-Reactive Protein 1.22(H) <=0.50 mg/dL LAB CHEMISTRY METHOD 07/30/2024 10:25 AM EST [facility] Blood Venous blood specimen / Unknown Venipuncture / Unknown 07/30/2024 7:30 AM EST 07/30/2024 9:39 AM EST Prince Le MD LAB BLOOD ORDERABLES [facility] [address] [place] [address], * (ABNORMAL) Comprehensive metabolic panel (07/30/2024 7:30 AM EST) [facility] Sodium 140 133 - 145 mmol/L LAB CHEMISTRY METHOD 07/30/2024 10:25 AM [facility] Potassium 5.1 3.5 - 5.5 mmol/L LAB CHEMISTRY METHOD 07/30/2024 10:25 AM [facility] Chloride 107 96 - 110 mmol/L LAB CHEMISTRY METHOD 07/30/2024 10:25 AM [facility] CO2 31 21 - 32 mmol/L LAB CHEMISTRY METHOD 07/30/2024 10:25 AM [facility] Anion Gap 2(L) 3 - 11 LAB CHEMISTRY METHOD 07/30/2024 10:25 AM [facility] Glucose 76 70 - 100 mg/dL LAB CHEMISTRY METHOD 07/30/2024 10:25 AM [facility] BUN 28(H) 5 - 25 mg/dL LAB CHEMISTRY METHOD 07/30/2024 10:25 AM [facility] Creatinine 1.13 0.70 - 1.30 mg/dL LAB CHEMISTRY METHOD 07/30/2024 10:25 AM [facility] eGFR 71 >=60 mL/min/1. 73m2 LAB CHEMISTRY METHOD 07/30/2024 10:25 AM [facility] Comment:Calculation based on the??Chronic Kidney Disease Epidemiology Collaboration (CKD-EPI) equation refit??without adjustment for race. BUN/Creatinine Ratio 24.8 LAB CHEMISTRY METHOD 07/30/2024 10:25 AM [facility] Calcium 9.5 8.5 - 10.5 mg/dL LAB CHEMISTRY METHOD 07/30/2024 10:25 AM [facility] AST (SGOT) 28 10 - 42 unit/L LAB CHEMISTRY METHOD 07/30/2024 10:25 AM [facility] ALT (SGPT) 24 10 - 60 unit/L LAB CHEMISTRY METHOD 07/30/2024 10:25 AM [facility] Alkaline Phosphatase 62 42 - 121 unit/L LAB CHEMISTRY METHOD 07/30/2024 10:25 AM [facility] Total Protein 6.4 6.0 - 8.0 g/dL LAB CHEMISTRY METHOD 07/30/2024 10:25 AM [facility] Albumin 3.2 3.2 - 5.0 g/dL LAB CHEMISTRY METHOD 07/30/2024 10:25 AM [facility] Total Bilirubin 0.4 0.0 - 1.4 mg/dL LAB CHEMISTRY METHOD 07/30/2024 10:25 AM [facility] Blood Venous blood specimen / Unknown Venipuncture / Unknown 07/30/2024 7:30 AM EST 07/30/2024 9:39 AM EST Prince Le MD LAB BLOOD ORDERABLES [facility] [address] [place] [address], * (ABNORMAL) Complete blood count (07/30/2024 7:30 AM EST) [facility] WBC 8.9 4.8 - 10.8 K/mcL LAB HEMETOLOGY METHOD 07/30/2024 9:55 AM [facility] RBC 4.30(L) 4.50 - 5.50 M/mcL LAB HEMETOLOGY METHOD 07/30/2024 9:55 AM [facility] Hemoglobin 12.1(L) 13.5 - 17.5 g/dL LAB HEMETOLOGY METHOD 07/30/2024 9:55 AM [facility] Hematocrit 36.5(L) 42.0 - 54.0 % LAB HEMETOLOGY METHOD 07/30/2024 9:55 AM [facility] MCV 84.3 79.0 - 98.0 FL LAB HEMETOLOGY METHOD 07/30/2024 9:55 AM [facility] MCH 27.9 27.0 - 32.0 pcg LAB HEMETOLOGY METHOD 07/30/2024 9:55 AM [facility] MCHC 33.2 32.0 - 37.0 g/dL LAB HEMETOLOGY METHOD 07/30/2024 9:55 AM [facility] RDW 19.4(H) 11.0 - 15.0 % LAB HEMETOLOGY METHOD 07/30/2024 9:55 AM [facility] Platelets 315 130 - 400 K/mcL LAB HEMETOLOGY METHOD 07/30/2024 9:55 AM [facility] MPV 12.7(H) 7.0 - 11.0 FL LAB HEMETOLOGY METHOD 07/30/2024 9:55 AM [facility] NRBC 0.0 <1.0 % LAB HEMETOLOGY METHOD 07/30/2024 9:55 AM [facility] NRBC Absolute 0.00 <0.10 K/mcL LAB HEMETOLOGY METHOD 07/30/2024 9:55 AM EST [facility] Blood Venous blood specimen / Unknown Venipuncture / Unknown 07/30/2024 7:30 AM EST 07/30/2024 9:39 AM EST Prince Le MD LAB BLOOD ORDERABLES [facility] [address] [place] [address], documented in this encounter Visit Diagnoses Diagnosis Type 2 diabetes mellitus without complications (CMS/HCC) documented in this encounter Care Teams Collar Feller Relationship Specialty Start Date End Date Tram Álvarez MD [address] [place] [address] , [facility] [address] [facility] D[facility]B/A: [facility] JAS Duque PCP - General Internal Medicine 03/30/18 documented as of this encounter
--- OUTSIDE RECORDS SUMMARY | 2024-07-30 13:20 | XMS_ITS | Data Portability ---
Author Organization [facility], Main Office Address [address] [facility], [address] [place] [address] Care Team Providers Care Mechanical Lead Name Role Phone LANG HERRERA Primary Care Provider [phone] [facility] - 4TH FLOOR OTHER Assessment No assessment [...] Address Organization Details Recorded Time Diabetes mellitus 90072281 Active 2019 YANG SWEET [address], [place], [address], [facility] 0 09:29:33 Depressive disorder 06908186 Active 2019 YANG SWEET [address] [facility], [address], [place], [address], [facility] 0 09:29:39 Essential hypertensio n 27155748 Active 2019 YANG SWEET [address] [facility], [address], [place], [address], [facility] 0 09:29:47 Hypercholes terolemia 22024498 Active 2019 YANG SWEET [address] [facility], [address], [place], [address], [facility] 0 09:29:57 Vitamin D deficiency 71904702 Active 2019 YANG SWEET [address], [address], [place], [address], [facility] 0 09:30:10 Insomnia 151962854 Active 2019 YANG SWEET [address], [place], [address], [facility] 0 09:30:19 Spinal stenosis of lumbar region 59717839 Active 2019 YANG SWEET [address], [address], [place], [address], [facility] 0 09:30:43 Total knee replacement Active 2022 Sonja Gibbs NP [address] , [address], [place], [address], [facility] 3 09:12:50 Acute pain of joint of knee 4682077895637 04 Active 2022 Sonja Gibbs NP [address] , [address], [place], [address], [facility] 3 09:14:53 Constipatio n 36360821 Active 2022 Sonja Gibbs NP [address] [facility], [address], [place], [address], [facility] 3 10:15:39 Osteoarthri tis of knee 629561146 Active 2022 Judie Camacho MD [address] , [address], [place], [address], [facility] 3 20:37:14 Chronic kidney disease stage 1 604883686 Active 2022 Judie Camacho MD [address], [address], [place], [address], [facility] 3 20:53:16 Chronic diastolic heart failure 393705006 Active 2023 Judie Camacho MD [address], [place], [address], [facility] 4 21:28:14 Chronic kidney disease stage 2 433339378 Active 2023 Judie Camacho MD [address] [facility] [address], [place], [address], [facility] 4 21:28:20 Problem Notes None recorded. Procedures Surgical History Date Name Laterality Status Provider Name and Address Organization Details Recorded Time laminotomy completed YANG SWEET [address] [facility] [address], [place], [address], [facility] 01/06/2020 09:27:06 Imaging Results None recorded. Procedure Notes None recorded. Medical Equipment None Reported. Allergies Allergen ID Allergen Name Allergen Category Reaction Reaction Severity Criticality Documentation Date Start Date Code Code System Note Provider Name and Address Organization Details Recorded Time [id number] Product containin g penicilli n and antibioti c (product) medicatio n rash Not available Not available 01/06/2020 94114 05 SNOMED Not Available Not Available Not [...] Details Last Updated DateTime 4 198.12 cm 24 kg/m2 22468.2 1 g 80 /min 18 /min 98.5 [degF] 98 % 98 % 129 mm[Hg] 68 mm[Hg] Sonja Gibbs NP [address] [facility], [address], [place], [address], [facility] 4 10:45:59 Date Recorded Body height Heart rate Respiratory rate Body temperature Oxygen saturation Oxygen saturation in Arterial blood by Pulse oximetry Systolic blood pressure Diastolic blood pressure Provider Name and Address Organization Details Last Updated DateTime 4 198.12 cm 80 /min 18 /min 97.4 [degF] 98 % 98 % 136 mm[Hg] 80 mm[Hg] MARIE TORRES NP [address] [facility] [address], [place], [address], [facility] 4 11:25:47 Date Recorded Body height Body mass index (BMI) Body weight Heart rate Respiratory rate Body temperature Oxygen saturation Oxygen saturation in Arterial blood by Pulse oximetry Systolic blood pressure Diastolic blood pressure Provider Name and Address Organization Details Last Updated DateTime 5 198.12 cm 22.4 kg/m2 42077.9 2 g 80 /min 18 /min 97.6 [degF] 97 % 97 % 108 mm[Hg] 74 mm[Hg] Sonja Gibbs NP [address] [facility] [address], [place], [address], [facility] 5 00:12:43 Date Recorded Body height Body mass index (BMI) Body weight Heart rate Respiratory rate Body temperature Oxygen saturation Oxygen saturation in Arterial blood by Pulse oximetry Systolic blood pressure Diastolic blood pressure Provider Name and Address Organization Details Last Updated DateTime 5 198.12 cm 22.4 kg/m2 23207.9 2 g 62 /min 18 /min 97.6 [degF] 97 % 97 % 117 mm[Hg] 82 mm[Hg] Sonja Gibbs NP [address] [facility] [address], [place], [address], [facility] 5 14:18:18 Date Recorded Body height Body weight Body mass index (BMI) Heart rate Respiratory rate Body temperature Oxygen saturation Oxygen saturation in Arterial blood by Pulse oximetry Systolic blood pressure Diastolic blood pressure Provider Name and Address Organization Details Last Updated DateTime 5 198.12 cm 09691.1 8 g 21.5 kg/m2 78 /min 18 /min 98.6 [degF] 97 % 97 % 131 mm[Hg] 74 mm[Hg] Sonja Gibbs, DIAMOND [address], [address], [place], [address], [facility] 5 08:04:57 Social History Question Answer Notes LastModified by Organizat ion Details LastModified Time Tobacco Smoking Status Former Smoker Sonja Gibbs, DIAMOND [address], [place], [address], [facility] 02/14/2023 10:11:47 Do You Have An Advance Directive? Yes FULL CODE No Dialysis And Okay To Use Nutrition-us e Hydration Information not available 02/14/2023 What Is Your Level Of Alcohol Consumption? Occasional Information not available 02/14/2023 How Much Tobacco Do You Chew? None [id number] Information not available 05/02/2020 What Is Your Code Status? Full Code Information not available 02/14/2023 Do You Or Have You Ever Used E-cigarettes Or Vape? Never Used Electronic Cigarettes [id number] Information not available 05/02/2020 Where Do You Live? Apartment Elevator Information not available 02/19/2023 Legal Guardian? No Informati on not available 02/14/2023 Do You Have A Medical Power Of Commercial Account Executive? Yes [id number] Information not available 05/02/2020 What Was The [...] Used Smokeless Tobacco? Never Used Smokeless Tobacco [id number] Information not available 05/02/2020 Do You Use Any Illicit Or Recreational Drugs? No Information not available 02/14/2023 Has Tobacco Cessation Counseling Been Provided? No N/a As Pt. No Longer Smokes Information not available 02/19/2023 How Many Years Have You Smoked Tobacco? 40 [id number] Information not available 05/02/2020 Do You Have [...] Influenza, adjuvanted, quadrivalent, PF 3 completed Nafisa Patel [facility] 09/05/2023 11:45:01 pneumococcal polysaccharide PPV23 8 completed Sade Little [facility] 05/07/2024 15:50:52 influenza, unspecified formulation 4 completed Sade Little [facility] 05/07/2024 15:51:08 SARS-COV-2 (COVID-19) vaccine, UNSPECIFIED 1 completed Sade Little [facility] 05/07/2024 15:51:23 SARS-COV-2 (COVID-19) vaccine, UNSPECIFIED 1 completed Sade Little [facility] 05/07/2024 15:51:30 SARS-COV-2 (COVID-19) vaccine, UNSPECIFIED 3 completed Sade Little [facility] 05/07/2024 15:51:38 Past Encounters Encounter ID Performer Location Encounter Start Date Encounter Closed Date Diagnosis/Indication Diagnosis SNOMED-CT Code Diagnosis ICD10 Code Diagnosis Note [id number] [facility] [address] [place] [address] [place] [address] 01/06/2020 09:16:35 01/10/2020 16:25:01 Spinal stenosis of lumbar region 73571341 M48.062 s/p L4-5 decompress ion 01/03/20 by Tana no lifting can remove surgical dsg today may resume diclofenac on 01/08/20-75 mg bid may shower but no tub or swimming monitor staple site oxycodone 5-10 mg q 4 hrs prn cyclobenza tutu 10 mg tid neurontin 300 mg bid and 600 mg q hs discussed risk vs benefit of neurontin with pt follow up in 10 days-appt already set up Diabetes mellitus 303167 09 E11.9 trulicity 1.5 mg q week on sundays lantus 45 units qd SSI januvia 100 mg qd monitor A1c monitor for s/s of hypo/hyper glycemia Essential hypertension 36199550 I10 amlodipine 5 mg qd benazepril 20 mg q hs and 40 mg q am HCTZ 50 mg qd monitor b/p and labs Hypercholesterolemia 136 80547 E78.2 atorvastat in 20 mg qd fenofibrat e 145 mg qd monitor labs Insomnia 761043919 G47.0 9 was on trazodone 50 mg q hs and seroquel 100 mg q hs prior to hospital not on here will need to monitor for need for it Depressive disorder 3548 9007 F32.89 zoloft 50 mg qd-was on 100 mg at home nortriptyl ine 25 mg q 12 hrs discussed risk vs benefit of zoloft and nortriptyl ine with pt monitor mood Vitamin D deficiency 347 94395 E56.8 vitamin D3 1000 iu qd monitor levels [id number] Estefany Curits MD [facility] [address] [place] [address] 01/07/2020 07:31:48 01/10/2020 16:31:47 Depressive disorder 26453753 F32.89 sertraline 50 mg dailywill monitor Diabetes mellitus 297243 09 E11.9 Humalog per sliding scaleJanuv ia 100 mg dailyLantu s 45 mg at hsmetformi n 1000 mg bidTrulici ty 1.5 mg weeklywill monitor Essential hypertension 46438099 I10 amlodipine 5 mg dailybenaz epril 40 mg dailyHCTZ 50 mg dailywill monitor Hypercholesterolemia 136 90083 E78.00 atorvastat in 20 mg dailyfenof ibrate 145 mg dailywill monitor Spinal mg nosis of lumbar region 43274416 M48.061 s/p recent decompress ion L4-5 cyclobenza tutu 10 mg tidnortrip tyline 25 mg bid diclofenac 75 mg bidgabapen tin 300 mg bid and 600 mg at hsoxycodon e 5-10 mg q4h prnfu neurosurge ryPT/OT [id number] PALAK BECKER, [employer] [facility] [address] [address] 01/11/2020 08:12:58 01/14/2020 14:03:39 Depressive disorder 04485740 F32.9 sertraline 50 mg daily will monitor Spinal mg nosis of lumbar region 45551166 M48.061 cyclobenza tutu 10 mg tid nortriptyl ine 25 mg bid diclofenac 75 mg bid gabapentin 300 mg bid and 600 mg at hs oxycodone 5-10 mg q4h prn fu neurosurge ry PT/OT [id number] PALAK BECKER [employer] [facility] [address] 01/14/2020 07:57:00 01/18/2020 09:07:39 Depressive disorder 61932032 F32.9 sertraline 50 mg daily will monitor Diabetes mellitus 075822 09 E11.9 monitor poc glucose Humalog per sliding scaleJanuv ia 100 mg daily Lantus 45 mg at hs metformin 1000 mg bid Trulicity 1.5 mg weekly will monitor Essential hypertension 92611155 I10 amlodipine 5 mg dailybenaz epril 40 mg daily HCTZ 50 mg daily will monitor Hypercholesterolemia 136 92164 E78.00 atorvastat in 20 mg daily fenofibrat e 145 mg daily will monitor Spinal mg nosis of lumbar region 64068228 M48.061 cyclobenza tutu 10 mg tid nortriptyl ine 25 mg bid diclofenac 75 mg bid gabapentin 300 mg bid and 600 mg at hs oxycodone 5-10 mg q4h prn fu neurosurge ry PT/OT [id number] YANG SWEET [facility] [address] [place] [address] 01/17/2020 08:06:37 01/25/2020 11:54:15 Spinal stenosis of lumbar region 76457591 M48.062 s/p L4-5 decompress ion 01/03/20 by Tana diclofenac on 01/08/20-75 mg bid oxycodone 5-10 mg q 4 hrs prn cyclobenza tutu 10 mg tid neurontin 300 mg bid and 600 mg q hs follow up with surgeon on 02/15/20 and as needed Diabetes mellitus 924990 09 E11.9 trulicity 1.5 mg q week on sundays lantus 45 units qd januvia 100 mg qd follow up with PCP Essential hypertension 08506187 I10 amlodipine 5 mg qd benazepril 40 mg q am HCTZ 50 mg qd follow up with PCP Hypercholesterolemia 136 22151 E78.2 atorvastat in 20 mg qd fenofibrat e 145 mg qd follow up with PCP Insomnia 909952317 G47.0 9 follow up with PCP Depressive disorder 3548 9007 F32.89 zoloft 50 mg qd nortriptyl ine 25 mg q 12 hrs follow up with PCP Vitamin D deficiency 347 81167 E56.8 vitamin D3 1000 iu qd follow up with PCP [id number] Sonja Gibbs NP [address] [address] 02/14/2023 08:55:37 02/19/2023 09:34:58 Spinal stenosis of lumbar region 53009065 M48.062 s/p L4-5 decompress ion 01/03/20 by Roel knee surgery oxycodonec yclobenzap rine 10 mg bedtime prnmonitor pain Diabetes mellitus 736616 09 E11.9 cont home regimentru licity 1.5 sc at 0900 on iba 55 units sc bedtimemet formin 500 mg er bidjardian ce 25 mg qdvascepa 2 g po bidmonitor bs bid x 3 days and reeval Essential hypertension 52185269 I10 hydralazin e 10 mg po tidbenazep ril 40 mg q am (per dc instructio ns and pt on both)lisin opril 20 mg po daily (per dc instructio ns and pt on both)furos emide 20 mg po dailymonit or bp, hr Hypercholesterolemia 136 57208 E78.2 atorvastat in 20 mg qdfenofibr ate 145 mg qd Insomnia 277417946 G47.0 9 follow up with PCP Depressive disorder 3548 9007 F32.89 lorazepam 1 mg po bidmonitor for anxiety Vitamin D deficiency 347 58880 E56.8 vitamin D3 1000 iu qd Acute pain of joint of knee 1780958234 01124 M25.569 sp post op 02/11/23 total knee replacemen t arthroplas ty*start tylenol 650 mg po tid and q 6 hours prn nte 3 grams/dayc elecoxib 200 mg po bid, ?end datedocusa te 100 mg po bidlovenox 40 mg sc q 24 hours for 42 days total (stop 03/27)(aspi rin ec 81 mg po daily dc while on lovenox)*s tart oxycodone 5 mg po tid and q 4 hours prn pain, note was on oxycodone 5 mg po tid prn for back pain priorlidoc checo 5 % ointment topical bedtime prnfollow up with ortho in [address] Stacey cruz aquacel dressing c/d/ilimit stair climbing, no shower, no tub bath, no drivinguse walker for ambulation PT/OT eval and treat rom 0-120, quad stregth, gait trainingcb c bmp weekly Constipation 06287939 K5 9.00 post op constipati oncont docusate 100 mg po bid*start milk of magnesia 30 cc po today and q 24 hours prn constipati on [id number] Judie Camacho MD [address] [address] 02/18/2023 19:53:10 02/20/2023 08:52:13 Spinal stenosis of lumbar region 77224937 M48.062 With chronic back pain. Uses oxycodone 5 mg TID at baseline and cyclobenza tutu 10 mg qhs prnPT/OT as above.Tabitha tor pain Diabetes mellitus 660717 09 E11.9 Last HgA1C was 7.9 on 01/31/23, BS have been good since hereReport eden doesn't use all his meds regularly due to cost.Vasu nue trulicity 1.5 weekly, tresiba 55 U qd, metformin 500 mg BID, and jardiance 25 mg qdMonitor fingerstic ks BID and HgA1C as outpt. Essential hypertension 47315845 I10 BP in good control.Co ntinue hydralazin e 10 mg TID, benazepril 40 mg qd, lisinopril 20 mg qd and furosemide 20 mg qd.Monitor BP and labsUnclea r why pt is on 2 SHANNON inhibitors , but will leave for PCP to manage. Vitamin D deficiency 347 23841 E56.8 Continue vitamin D3 1000 IU qdMonitor as outpt. Constipation 37441742 K5 9.09 Will add miralax 17 gms qd and continue docusate 100 mg BID and MOM prn.Monito r bowel function Osteoarthr itis of knee 525821420 M17.12 Z96.652 Recovering slowly after LTKR.Vasu nue celecoxib 200 mg BID, APAP 650 mg TID and q 4 hrs prn (NTE 3000 mg/d), oxycodone 5 mg TID and 5 mg q 4 hrs prn, and lidocaine ointment qhs prn.Will make sure he gets an oxy right before PT.Continu e lovenox 40 mg subq qd until 03/27 (42 day course) for DVT prophylaxi s.Needs PT/OT for strengthen ing, balance, gait training, safety and function.C ontinue fall precaution s.Monitor for safety.F/U with ortho on 02/27 as planned.Jose ep aquacel dressing in place until f/u Chronic ki dney disease stage 1 678742638 N18.1 At baseline.C ontinue to avoid nephrotoxi c meds as able.Monit or labs.Renal consult prn. Hyperlipidemia 04928974 E78.49 E78.1 Last lipids in system from 02/2021, trig were still high, but TC and HDL ok.Continu e atorvastat in 20 mg qd, fenofibrat e 145 mg qd and vascepa 2 g BID.Will get lipid profile while here, then f/u with PCP as outpt. 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 was still on sertraline , but per inpt notes, not filled at either [facility] or [facility] recently.C ontinue lorazepam 1 mg BID.monito r for anxiety [id number] Sonja Gibbs NP [address] [address] [place] [address] 02/21/2023 10:00:03 02/25/2023 10:32:50 Osteoarthritis of knee 137211631 M17.12 Z96.652 LTKR originally done on ontinu eice pack to left knee tidcelecox ib 200 mg BIDAPAP 650 mg TID and q 4 hrs prn (NTE 3000 mg/d), oxycodone 5 mg TID and 5 mg q 4 hrs prnlidocai ne ointment qhs prn.reques t oxy right before PT.lovenox 40 mg subq qd until 03/27 (42 day course) for DVT prophylaxi s.PT/OT for strengthen ing, balance, gait training, safety and function.C ontinue fall precaution s.Monitor for safety.F/U with ortho on 02/[address] Juana Lema p aquacel dressing in place until f/u Spinal mg nosis of lumbar region 39601116 M48.062 With chronic back pain.oxyco done 5 mg TID at baseline and cyclobenza tutu 10 mg qhs prn at baseline, now see above osteoarthr itis of knee for new pain regimenPT/ OT as above.Tabitha tor pain Diabetes mellitus 352997 09 E11.9 Last HgA1C was 7.9 on 01/31/23, BS have been good since hereContin uetrulicit y 1.5 weeklytres iba 55 U qdmetformi n 500 mg BID,jardia nce 25 mg qdMonitor fingerstic ks BID and HgA1C as outpt. Essential hypertension 60341321 I10 BP in good control. slightly high likely due to painContin uehydralaz ine 10 mg TIDbenazep ril 40 mg qdlisinopr il 20 mg qdfurosemi de 20 mg qd.Monitor BP and labsUnclea r why pt is on 2 SHANNON inhibitors , but will leave for PCP to manage. (pt on this regimen for many years and reports it works) Hyperlipidemia 39225290 E78.49 E78.1 Last lipids in system from 02/2021, trig were still high, but TC and HDL ok.Continu eatorvasta tin 20 mg qdfenofibr ate 145 mg qdvascepa 2 g BID.lipid profile pendingf/u with PCP as outpt. Mixed anxi ety and depressive disorder 290861371 F41.8 Per pt. was still on sertraline , but per inpt notes, not filled at either [facility] or [facility] recently.C ontinuelor azepam 1 mg BID.monito r for anxiety Vitamin D deficiency 347 33269 E56.8 Continuevi tamin D3 1000 IU qdMonitor as outpt. Constipation 38943899 K5 9.09 with hard stools per report latelymira lax 17 gms qddocusate 100 mg BIDMOM prn.Monito r bowel function Chronic ki dney disease stage 1 296886008 N18.1 At baseline.C ontinue to avoid nephrotoxi c meds as able.Monit or labs.Renal consult prn. [id number] [facility] [address] 02/24/2023 08:59:01 02/28/2023 10:19:51 Osteoarthritis of knee 451985463 M17.12 Z96.652 LTKR originally done on inc rease from oxycodone 5 mg TID and 5 mg q 4 hrs prn to oxycodone 10 mg at 6am 5 mg po at 2pm and 8 pm aswell as q 4 hours prn.spoke with PT about consistent times today for pain mangementC ontinueice pack to left knee tidcelecox ib 200 mg BIDAPAP 650 mg TID and q 4 hrs prn (NTE 3000 mg/d),lido vasquez ointment qhs prn.reques t oxy right before PT.lovenox 40 mg subq qd until 03/27 (42 day course) for DVT prophylaxi s.PT/OT for strengthen ing, balance, gait training, safety and function.C ontinue fall precaution s.Monitor for safety.F/U with ortho on 02/[address] Juana Apple ([facility] to check into this appt with office as pt states his cheng states it is for PT)Keep aquacel dressing in place until f/u Diabetes mellitus 716975 09 E11.9 Last HgA1C was 7.9 on 01/31/23, BS have been good since hereContin uetrulicit y 1.5 weeklytres iba 55 U qdmetformi n 500 mg BID,jardia nce 25 mg qdMonitor fingerstic ks BID and HgA1C as outpt. Spinal mg nosis of lumbar region 62501041 M48.062 With chronic back pain.oxyco done 5 mg TID at baseline and cyclobenza tutu 10 mg qhs prn at baseline, now see above osteoarthr itis of knee for new pain regimenPT/ OT as above.Tabitha tor pain Essential hypertension 86410429 I10 BP slightly high likely due to painContin uehydralaz ine 10 mg TIDbenazep ril 40 mg qdlisinopr il 20 mg qdfurosemi de 20 mg qd.Monitor BP and labsUnclea r why pt is on 2 SHANNON inhibitors , but will leave for PCP to manage. (pt on this regimen for many years and reports it works) Hyperlipidemia 58279554 E78.49 E78.1 Last lipids in system from 02/2021, trig were still high, but TC and HDL ok.Continu eatorvasta tin 20 mg qdfenofibr ate 145 mg qdvascepa 2 g BID.lipid profile pendingf/u with PCP as outpt. Mixed anxi ety and depressive disorder 821675981 F41.8 Per pt. was still on sertraline , but per inpt notes, not filled at either [facility] or [facility] recently.C ontinuelor azepam 1 mg BID.monito r for anxiety Vitamin D deficiency 347 10477 E56.8 Continuevi tamin D3 1000 IU qdMonitor as outpt. Constipation 99746452 K5 9.09 with hard stools per report latelyincr ease miralax 17 gms qd to bidcont docusate 100 mg BIDMOM prn. q 24 hours if hard stools or no bmMonitor bowel function Chronic ki dney disease stage 1 389966354 N18.1 At baseline.C ontinue to avoid nephrotoxi c meds as able.Monit or labs.Renal consult prn. [id number] Sonja Gibbs NP [facility] [address] 02/28/2023 08:24:09 03/03/2023 11:01:20 Osteoarthritis of knee 897328262 M17.12 Z96.652 LTKR originally done on oxy codone 5 mg TID and 5 mg q 4 hrs prn to oxycodone 10 mg at 6am and 5 mg po at 2pm and 8 pm aswell as q 4 hours prn.PT/OT providing consistent times for therapy as possibleCo ntinueice pack to left knee tid prncelecox ib 200 mg BIDAPAP 650 mg TID and q 4 hrs prn (NTE 3000 mg/d),lido vasquez ointment qhs prn.reques t oxy right before PT.lovenox 40 mg subq qd until 03/27 (42 day course) for DVT prophylaxi s.PT/OT for strengthen ing, balance, gait training, safety and function.C ontinue fall precaution s.Monitor for safety.F/U with ortho on 02/27 Dr. Apple 02/28nurs ing to obtain consult note from this visit and make 2 week appt today Constipation 06041153 K5 9.09 resolvingc ontmiralax 17 gms qd to biddocusat e 100 mg BIDMOM prn. q 24 hours if hard stools or no bmMonitor bowel function Diabetes mellitus 120309 09 E11.9 Last HgA1C was 7.9 on 01/31/23, BS have been good since hereContin uetrulicit y 1.5 weeklytres iba 55 U qdmetformi n 500 mg BID,jardia nce 25 mg qdMonitor fingerstic ks BID and HgA1C as outpt. Spinal mg nosis of lumbar region 29351312 M48.062 With chronic back pain.oxyco done 5 mg TID at baseline and cyclobenza tutu 10 mg qhs prn at baseline, now see above osteoarthr itis of knee for new pain regimenPT/ OT as above.Tabitha tor pain Essential hypertension 43422922 I10 BP slightly high likely due to pain, will monitor closelyCon tinuehydra lazine 10 mg TIDbenazep ril 40 mg qdlisinopr il 20 mg qdfurosemi de 20 mg qd.Monitor BP and labsUnclea r why pt is on 2 SHANNON inhibitors , but will leave for PCP to manage. (pt on this regimen for many years and reports it works) Hyperlipidemia 70412237 E78.49 E78.1 Last lipids in system from 02/2021, trig were still high, but TC and HDL ok.Continu eatorvasta tin 20 mg qdfenofibr ate 145 mg qdvascepa 2 g BID.lipid profile pendingf/u with PCP as outpt. Mixed anxi ety and depressive disorder 921293105 F41.8 Per pt. was still on sertraline , but per inpt notes, not filled at either [facility] or [facility] recently.C ontinuelor azepam 1 mg BID.monito r for anxiety Vitamin D deficiency 347 63624 E56.8 Continuevi tamin D3 1000 IU qdMonitor as outpt. Chronic ki dney disease stage 1 388389240 N18.1 At baseline.C ontinue to avoid nephrotoxi c meds as able.Monit or labs.Renal consult prn. [id number] Sonja Gibbs NP [facility] [address] 03/03/2023 08:59:22 03/05/2023 08:05:09 Osteoarthritis of knee 708797629 M17.12 Z96.652 LTKR originally done on oxy codone 5 mg TID and 5 mg q 4 hrs prn to oxycodone 10 mg at 6am and 5 mg po at 2pm and 8 pm aswell as q 4 hours prn.PT/OT providing consistent times for therapy as possibleCo ntinueice pack to left knee tid prncelecox ib 200 mg BIDAPAP 650 mg TID and q 4 hrs prn (NTE 3000 mg/d),lido vasquez ointment qhs prn.reques t oxy right before PT.*PT/OT to coordinate so he can have pain med prior to therapylov enox 40 mg subq qd until 03/27 (42 day course) for DVT prophylaxi s.PT/OT for strengthen ing, balance, gait training, safety and function.f all precaution s.Monitor for safety.F/U with ortho Dr. Apple 02/28nurs ing to obtain consult note from this visit and make 2 week appt today03/03 nursing to call ortho office again and obtain consult note from 02/27 and make fu appt-still no note Constipation 63953750 K5 9.09 better on this regimencon tmiralax 17 gms qd to biddocusat e 100 mg BIDMOM prn. q 24 hours if hard stools or no bmMonitor bowel function Diabetes mellitus 695876 09 E11.9 Last HgA1C was 7.9 on 01/31/23, BS have been good since hereContin uetrulicit y 1.5 weeklytres iba 55 U qdmetformi n 500 mg BID,jardia nce 25 mg qdMonitor fingerstic ks BID and HgA1C as outpt. Spinal mg nosis of lumbar region 60545816 M48.062 With chronic back pain.oxyco done 5 mg TID at baseline and cyclobenza tutu 10 mg qhs prn at baseline, now see above with osteoarthr itis of knee for new pain regimenPT/ OT as above.Tabitha tor pain Essential hypertension 82792756 I10 BP slightly high likely due to pain now improving, will monitor closely 130s/70sCo ntinuehydr alazine 10 mg TIDbenazep ril 40 mg qdlisinopr il 20 mg qdfurosemi de 20 mg qd.Monitor BP and labsUnclea r why pt is on 2 SHANNON inhibitors , but will leave for PCP to manage. (pt on this regimen for many years and reports it works) Hyperlipidemia 01263640 E78.49 E78.1 Last lipids in system from 02/2021, trig were still high, but TC and HDL ok.Continu eatorvasta tin 20 mg qdfenofibr ate 145 mg qdvascepa 2 g BID.lipid profile pendingf/u with PCP as outpt. Mixed anxi ety and depressive disorder 622380542 F41.8 Per pt. was still on sertraline , but per inpt notes, not filled at either [facility] or [facility] recently.C ontinuelor azepam 1 mg BID.monito r for anxiety Chronic ki dney disease stage 1 082319880 N18.1 At baseline.C ontinue to avoid nephrotoxi c meds as able.Monit or labs.Renal consult prn. Edema of l ower extremity 697522955 R60.0 nsg and pt state bilateral feet swelling, now better this am after feet up all night, likely dependent as he is up more throughout the day 03/03 start compressio n stockings on in am off in pmmonitor [id number] Sonja Gibbs NP [facility] [address] [place] [address] 03/06/2023 11:01:35 03/11/2023 09:41:09 Osteoarthritis of knee 528497444 M17.12 Z96.652 LTKR originally done on 02/11oxycodo ne 10 mg at 6am, 5 mg po at 2pm and 8 pm aswell as q 4 hours prn. (will need to decrease usage of oxycodone in the next few weeks)spok e with PT about consistent times today for pain mangementC ontinueice pack to left knee prn comfortcel ecoxib 200 mg BIDAPAP 650 mg TID and q 4 hrs prn (NTE 3000 mg/d),love nox 40 mg subq qd until 03/27 (42 day course) for DVT prophylaxi s.PT/OT for strengthen ing, balance, gait training, safety and function.C ontinue fall precaution s.Monitor for safety.F/U with ortho on 02/[address] Juana Apple ([facility] to check into this appt with office as pt states his cheng states it is for PT)fu with ortho and pcp outpt and PT services amended orderpt has pain and oxycodone not availablet ramadol 100 mg po q 6 hours prn x 24 hoursmonit or Constipation 09186878 K5 9.09 miralax 17 gms qd to bid, titrate as neededdocu sate 100 mg BIDMOM prn. q 24 hours if hard stools or no bmMonitor bowel function outpt with vna pcp Diabetes mellitus 666209 09 E11.9 Last HgA1C was 7.9 on 01/31/23, BS have been good since heretrulic ity 1.5 weeklytres iba 55 U qdmetformi n 500 mg BID,jardia nce 25 mg qdMonitor fingerstic ks BID and HgA1C as outpt.foll ow with pcp outpt Spinal mg nosis of lumbar region 01774124 M48.062 With chronic back pain.oxyco done 5 mg TID at baseline(s ee increased regimen above osteoarthr itis please ) and cyclobenza tutu 10 mg qhs prn at baselinePT /OT as above.Tabitha tor pain outpt with pcp Essential hypertension 32987482 I10 BP slightly high likely due to painContin uehydralaz ine 10 mg TIDbenazep ril 40 mg qdlisinopr il 20 mg qdfurosemi de 20 mg qd.Monitor BP and labsUnclea r why pt is on 2 SHANNON inhibitors , but will leave for PCP to manage outpt. (pt on this regimen for many years and reports it works) Hyperlipidemia 14984123 E78.49 E78.1 Last lipids in system from 02/2021, trig were still high, but TC and HDL ok.Continu eatorvasta tin 20 mg qdfenofibr ate 145 mg qdvascepa 2 g BID.lipid profile pendingf/u with PCP as outpt. Mixed anxi ety and depressive disorder 798055753 F41.8 Per pt. was still on sertraline , but per inpt notes, not filled at either [facility] or [facility] recently.C ontinuelor azepam 1 mg BID.monito r for anxiety outpt with pcp Vitamin D deficiency 347 06603 E56.8 Continuevi tamin D3 1000 IU qdMonitor as outpt with pcp Chronic ki dney disease stage 1 430441481 N18.1 At baseline.C ontinue to avoid nephrotoxi c meds as able.Monit or labs.Renal consult prn outpt Hypercholesterolemia 136 94142 E78.2 atorvastat in 20 mg qdfenofibr ate 145 mg qdfu with pcp outpt Insomnia 718322881 G47.0 9 follow up with PCP outpt [id number] Judie Camacho MD [address] [address] 05/07/2024 18:25:29 05/10/2024 08:52:32 Chronic diastolic heart failure 128147320 I50.32 Pt says he never had any resp sxs, CXR didn't show vascular congestion or pulmonary edema and BNP was low, so unclear to me how they are calling this CHF exacerbati on.His last echo was in 2022 and showed EF of 60-65% and grade 1 diastolic dysfunctio n.Pt's main c/o was and continues to be peripheral edema.Cont inue benazapril 40 mg qd, lasix 40 mg qd, and hydralazin e 25 mg qd.Also on Trulicity, which is cardioprot ective.Cheng ears euvolemic. Monitor resp. status, fluid status, wts and labs. Spinal mg nosis of lumbar region 02357581 M48.062 With chronic back pain. Uses oxycodone 10 mg QID at baseline (checked in [employer]).W ritten for 5 mg QID at hospital, will change back to baseline dose.Very deconditio amaury.Needs PT/OT for strengthen ing, balance, gait training, safety and function.C ontinue fall precaution s.Monitor for safety.Mon itor pain controlCel ebrex on hold. Hypercholesterolemia 136 43682 E78.2 Continue atorvastat in 20 mg qd, fenofibrat e 145 mg qd, vascepa 2 g BID, and ASA 81 mg qd.Monitor labs as outpt. Essential hypertension 88067579 I10 SBP a little high yesterday, not checked todayConti nue meds as above and amlodipine 2.5 mg qd.Monitor BP and labsDaily BPs ordered. Diabetes mellitus 302805 09 E11.9 Last HgA1C was 7.9 in 11/2023.Fol lowed by endocrine at [facility].Contin ue trulicity 1.5 weekly, tresiba 35 U qd, metformin 500 mg BID, januvia 25 mg qd, and SSITresiba not yet delivered, ok to use Lantus instead tonight.Mo nitor fingerstic ks TID and HgA1C as outpt. Depressive disorder 7358 9007 F32.89 In hx.On no meds.Monit or mood.Psych consult prn. Chronic ki dney disease stage 2 471013556 N18.2 At baseline.C ontinue to avoid nephrotoxi c meds as able.Monit or labs.Renal consult prn. Benign pro static hyperplasia without outflow obstruction 198323798 N40.0 In hx, with some issues with retention at times.Cont inue tamsulosin 0.4 mg qd. [id number] MARIE TORRES NP [facility] [address] [facility] [place] [address] 05/13/2024 13:47:03 05/14/2024 10:52:03 Chronic diastolic heart failure 982876707 I50.32 Pt says he never had any resp sxs, CXR didn't show vascular congestion or pulmonary edema and BNP was low, so unclear to me how they are calling this CHF exacerbati on.His last echo was in 2022 and showed EF of 60-65% and grade 1 diastolic dysfunctio n.Pt's main c/o was and continues to be peripheral edema.Cont inue benazapril 40 mg qd, lasix 40 mg qd, and hydralazin e 25 mg qd.Also on Trulicity, which is cardioprot ective.Cheng ears euvolemic. Monitor resp. status, fluid status, wts and labs.Labs q friday x 3 Spinal mg nosis of lumbar region 46154117 M48.062 With chronic back pain. Uses [facility]W [facility] for 5 mg QID at hospital, will change back to baseline dose.Very deconditio amaury.Needs PT/OT for strengthen ing, balance, gait training, safety and function.C ontinue fall precaution s.Monitor for safety.Fri itor pain controlCel ebrex on hold. Diabetes mellitus 872741 09 E11.9 Last HgA1C was 7.9 in 11/2023.Fol lowed by endocrine at [facility].Contin ue trulicity 1.5 weekly, tresiba 35 U qd, metformin 500 mg BID, januvia 25 mg qd, and SSITresiba not yet delivered, ok to use Lantus instead tonight.Mo nitor fingerstic ks TID and HgA1C as outpt. Essential hypertension 85124326 I10 SBP a little high yesterday, not checked todayConti nue meds as above and amlodipine 2.5 mg qd.Monitor BP and labsDaily BPs ordered. Chronic ki dney disease stage 2 555041639 N18.2 At baseline.C ontinue to avoid nephrotoxi c meds as able.Monit or labs.Renal consult prn. Hypercholesterolemia 136 35016 E78.2 Continue atorvastat in 20 mg qd, fenofibrat e 145 mg qd, vascepa 2 g BID, and ASA 81 mg qd.Monitor labs as outpt. Depressive disorder 3548 9007 F32.89 In hx.On no meds.Monit or mood.Psych consult prn. Benign pro static hyperplasia without outflow obstruction 774396134 N40.0 In hx, with some issues with retention at times.Cont inue tamsulosin 0.4 mg qd. Pain in right arm 465696 004 M79.601 New onset, x 2-3d. Denies trauma or injury.Exa m limited due to painPMR assessed as well.Plan -Check x rays and venous USOxycodon e already available for pain.Monit or closely. [id number] Sonja Gibbs NP [address] [address] 05/14/2024 11:54:20 05/17/2024 11:03:10 Chronic diastolic heart failure 573790799 I50.32 Pt's main c/o was and continues to be peripheral edema now resolving and no edema to BLEPt says he never had any resp sxs, CXR didn't show vascular congestion or pulmonary edema and BNP was low, so unclear to me how they are calling this CHF exacerbati on.His last echo was in 2022 and showed EF of 60-65% and grade 1 diastolic dysfunctio n.Continue benazapril 40 mg qd, lasix 40 mg qd, and hydralazin e 25 mg qd.Also on Trulicity, which is cardioprot ective.Cheng ears euvolemic. Monitor resp. status, fluid status, wts and labs.Labs q friday x 3, 11.8 labs pending today Spinal mg nosis of lumbar region 10516807 M48.062 With chronic back pain. hx of oxycodone 10 mg QID at baseline ([employer] checked in [employer]). and changed to baseline dose as hosp decreased it to 5mg QID prnVery deconditio amaury.Needs PT/OT for strengthen ing, balance, gait training, safety and function.C ontinue fall precaution s.Monitor for safety.Mon itor pain controlCel ebrex on hold. Diabetes mellitus 909400 09 E11.9 BS 127 today and stable, [facility] HgA1C was 7.9 in 11/2023.Con [place] 1.5 weekly, tresiba 35 U qd, metformin 500 mg BID, januvia 25 mg qd, and SSIMonitor fingerstic ks TID and HgA1C as outpt. Essential hypertension 18130415 I10 bp stable 128/72 todayConti nue meds as above and amlodipine 2.5 mg qd.Monitor BP and labsDaily BPs ordered. Chronic ki dney disease stage 2 447712256 N18.2 At baseline.C ontinue to avoid nephrotoxi c meds as able.Monit or labs.Renal consult prn. Hypercholesterolemia 136 76891 E78.2 Continueat orvastatin 20 mg qd, fenofibrat e 145 mg qd, vascepa 2 g BID, and ASA 81 mg qd.Monitor labs as outpt. Depressive disorder 3548 9007 F32.89 In hx.On no meds.Monit or mood.Psych consult prn. Benign pro static hyperplasia without outflow obstruction 562285020 N40.0 In hx, with some issues with retention at times.Cont inuetamsul osin 0.4 mg qd. Pain in right arm 891696 004 M79.601 New onset, x 2-3d. Denies trauma or injury. feels it is improvingx rays and venous US to right arm negative for acute findingsOx ycodone for pain.05/14 seen by physiatry on 05/13 rec: tyl 1000 mg po tid and lidocaine patch, will agree and order todayMonit or closely. Dizziness 381342180 R42 pt reports dizziness today directly related to the room being hot05/14 requests to move room, decrease heat or leave facility, nursing aware and heat reduced, vitals and BS stablemoni tor closely for improvemen t or changes Tinea pedis 1476813 B35. 3 clotrimazo le 1 % cream bid x 10 daysmonito r [id number] Sonja Gibbs NP [address] [address] 05/20/2024 07:43:04 05/21/2024 11:07:38 Pain in right arm 249581100 M79.601 New onset, x 2-3d. Denies trauma or injury. feels it is improvingx rays and venous US to right arm negative for acute findingsOx ycodone for pain.physi atry rec tyl 1000 mg po tid and lidocaine patch which is helping but remains with pain. will reconsult1 07/20 will increase cyclobenza tutu to bid todayMonit or closely. Tinea pedis 1839956 B35. 3 improving slightlycl otrimazole 1 % cream bid x 10 daysmonito r Chronic di astolic heart failure 309117490 I50.32 Pt's main c/o was and continues to be peripheral edema now resolving and no edema to BLEno resp concernsHi s last echo was in 2022 and showed EF of 60-65% and grade 1 diastolic dysfunctio n.Continue benazapril 40 mg qd, lasix 40 mg qd, and hydralazin e 25 mg qd.Also on Trulicity, which is cardioprot ective.Cheng ears euvolemic. Monitor resp. status, fluid status, wts and labs.Labs stable, bmp weekly x1 Spinal mg nosis of lumbar region 04884410 M48.062 With chronic back pain. hx of oxycodone 10 mg QID at baseline ([employer] checked in [employer] home dose).cont PT/OT for strengthen ing, balance, gait training, safety and function.C ontinue fall precaution s.Monitor for safety.Mon itor pain controlCel ebrex on hold. Diabetes mellitus 790438 09 E11.9 BS 102-182 stable, [facility] HgA1C was 7.9 in 11/2023.Con [place] 1.5 weekly, tresiba 35 U qd, metformin 500 mg BID, januvia 25 mg qd, and SSIMonitor fingerstic ks TID and HgA1C as outpt. Essential hypertension 63008915 I10 bp stable 126/69 todayConti nue meds as above and amlodipine 2.5 mg qd.Monitor BP and labsDaily BPs ordered. Chronic ki dney disease stage 2 885749508 N18.2 At baseline.C ontinue to avoid nephrotoxi c meds as able.Monit or labs.Renal consult prn. Hypercholesterolemia 136 02274 E78.2 Continueat orvastatin 20 mg qd, fenofibrat e 145 mg qd, vascepa 2 g BID, and ASA 81 mg qd.Monitor labs as outpt. Depressive disorder 3908 9007 F32.89 In hx.On no meds.Monit or mood.Psych consult prn. Benign pro static hyperplasia without outflow obstruction 093469866 N40.0 In hx, with some issues with retention at times.Cont inuetamsul osin 0.4 mg qd. [id number] Sonja Gibbs NP [address] [place] [address] 05/27/2024 13:47:02 05/28/2024 10:07:06 Pain in right arm 085871974 M79.601 Denies trauma or injury. feels it is improving. refuses additional meds for pain todayx rays and venous US to right arm negative for acute findingsOx ycodone for pain.physi atry rec tyl 1000 mg po tid and lidocaine patch which is helpingcyc lobenzapri ne to bid todayMonit or closely. Tinea pedis 7274308 B35. 3 improvingc lotrimazol e 1 % cream bid x 10 days to completemo nitor Chronic di astolic heart failure 638946562 I50.32 Pt's main c/o was and continues to be peripheral edema now resolving and no edema to BLEno resp concernsHi s last echo was in 2022 and showed EF of 60-65% and grade 1 diastolic dysfunctio n.Continue benazapril 40 mg qd, lasix 40 mg qd, and hydralazin e 25 mg qd.Also on Trulicity, which is cardioprot ective.Cheng ears euvolemic. Monitor resp. status, fluid status, wts and labs.Labs stable, bmp weekly x1 as above Spinal mg nosis of lumbar region 69902959 M48.062 With chronic back pain. hx of oxycodone 10 mg QID at baseline, will cont([employer] checked in [employer] home dose).cont PT/OT for strengthen ing, balance, gait training, safety and function.C ontinue fall precaution s.Monitor for safety.Mon itor pain controlCel ebrex remains on hold. Diabetes mellitus 418916 09 E11.9 BS 100s-occ 200s stable, [facility] outptLast HgA1C was 7.9 in 11/2023.Con [place] 1.5 weekly, tresiba 35 U qd, metformin 500 mg BID, januvia 25 mg qd, and SSIMonitor fingerstic ks TID and HgA1C as outpt. Essential hypertension 44323907 I10 bp stableCont inue meds as above and amlodipine 2.5 mg qd.Monitor BP and labs Chronic ki dney disease stage 2 202946263 N18.2 At baseline.C ontinue to avoid nephrotoxi c meds as able.Monit or labs.Renal consult prn. Hypercholesterolemia 136 82400 E78.2 Continueat orvastatin 20 mg qd, fenofibrat e 145 mg qd, vascepa 2 g BID, and ASA 81 mg qd.Monitor labs as outpt. Depressive disorder 7263 9007 F32.89 a little down today, wishes his progress was futher, but reports okayOn no meds.Monit or mood.Psych consult prn. Benign pro static hyperplasia without outflow obstruction 475679928 N40.0 In hx, with some issues with retention at times.Cont inuetamsul osin 0.4 mg qd. Asthenia 24172076 R53.1 remains with weakness to legs and armsPT/OT eval and treatmonit or [id number] Sonja Gibbs NP [address] [address] 05/31/2024 10:47:07 06/02/2024 08:35:29 Pain in right arm 822840087 M79.601 Denies trauma or injury. feels it is improving. refuses additional meds for pain today but requests the oxycodone 10 mg scheduled instead of prnx rays and venous US to right arm negative for acute qpuofezr32 /25 sched Oxycodone 10 mg po q 6 hours and dc prn doses for pain.physi atry rec tyl 1000 mg po tid and lidocaine patch which is helpingcyc lobenzapri ne bidMRI sched for 06/01 of back and hoping to get more info on status and diagnosisM onitor closely. Asthenia 17707527 R53.1 remains with weakness to legs and armsPT/OT eval and treatmonit or Depressive disorder 3540 9007 F32.89 a little down today, wishes his progress was futher, but reports okayOn no meds.Monit or mood.Psych consult prn. Chronic di astolic heart failure 273987908 I50.32 Pt's main c/o was and continues to be peripheral edema now resolving and no edema to BLEno resp concernsHi s last echo was in 2022 and showed EF of 60-65% and grade 1 diastolic dysfunctio n.Continue benazapril 40 mg qd, lasix 40 mg qd, and hydralazin e 25 mg qd.Also on Trulicity, which is cardioprot ective.Cheng ears euvolemic. Monitor resp. status, fluid status, wts and labs.Labs stable Spinal mg nosis of lumbar region 00884064 M48.062 With chronic back pain. hx of oxycodone 10 mg QID at baseline, will cont([employer] checked in [employer] home dose). MRI sched for 06/01 of back and hoping to get more info on status and diagnosis contPT/OT for strengthen ing, balance, gait training, safety and function.C ontinue fall precaution s.Monitor for safety.Mon itor pain controlCel ebrex remains on hold. Diabetes mellitus 405968 09 E11.9 BS 100s-occ 200s stable, [facility] outptLast HgA1C was 7.9 in 11/2023.Con [place] 1.5 weekly, tresiba 35 U qd, metformin 500 mg BID, januvia 25 mg qd, and SSIMonitor fingerstic ks TID and HgA1C as outpt. Essential hypertension 01665112 I10 bp stableCont inue meds as above and amlodipine 2.5 mg qd.Monitor BP and labs Chronic ki dney disease stage 2 237716675 N18.2 At baseline.C ontinue to avoid nephrotoxi c meds as able.Monit or labs.Renal consult prn. [id number] Sonja Gibbs NP [facility] [address] [address] 06/17/2024 08:35:00 06/18/2024 14:22:00 Spinal stenosis of lumbar region 70421453 M48.062 With chronic back pain. hx of [...] His pcp Dr Jacinto referred him to [facility] with appt [...] remains on hold. Pain in right arm 394908 004 M79.601 Denies trauma or injury. feels it is improving. has decreased rom and lymphedema for some time nowcontphy siatry prn consultedc onttyl 1000 mg po tid and lidocaine patch which is helpingsch ed Oxycodone 10 mg po q 6 hours and dc prn doses for pain.cyclo benzaprine bidMRI sched for 06/01 of back results pending. nsg obtainingM onitor closely. Asthenia 19310946 R53.1 remains with weakness to left leg and right armPT/OT eval and treat prn, off regular therapymon itor Osteoarthr itis of knee 366598843 M17.12 Z96.652 LTKR originally done on 02/11remains [...] planned soon, nsg to fu , dr appleu/s of bilateral lower ext today on 06/17monit or Nausea and vomiting 1692 1999 R11.2 likely related to constipati onsee belowzofra n 4 mg po q 6 hours prn n/v x 30 days Constipation 38393454 K5 9.09 unclear why bowel meds decreased recently, now with 6 days of constipati onmiralax 17 gms prn qd, titrate as neededdocu sate 100 mg daily06/17 MOM 30 [facility] bisacodyl supp if no results in a few hoursMonit or bowel function outpt with vna pcp [id number] MARIE TORRES NP [facility] [address] [address] 06/22/2024 12:27:29 06/23/2024 09:31:59 Gastroesophageal reflux disease without esophagitis 400943730 K21.9 Using TUMS frequently for GERD/GI sx.Start pepcid 20 mg bidMonitor sx.If remain problemati c, consider trial of PPI [id number] Sonja Gibbs NP [facility] [address] [address] 06/23/2024 13:31:14 06/24/2024 12:10:49 Asthenia 08223873 R53.1 remains with weakness to left leg and right armPT/OT eval and treat prn, off regular therapymon itor Constipation 42500866 K5 9.09 unclear why bowel meds decreased recently, now with 2 days of constipati on and continues with this every couple of days give mom 30 cc and bisacodyl 10 pr supp nowcont miralax 17 gms prn daily(sche duled)cydney a plus 2 tabs dailydc docusateMo nitor bowel function Spinal mg nosis of lumbar region 54747381 M48.062 With chronic back pain. hx of [...] Apple 06/24 for right shoulder painalso 07/29/24 [facility] at 1 pm. contPT/OT for strengthen ing, balance, gait training, safety and function prnremains barrington lift at this timeContin ue fall precaution s.Monitor for safety.Mon itor pain controlCel ebrex remains on hold. Pain in right arm 577602 004 M79.601 Denies trauma or injury. feels it is improving. has decreased rom and lymphedema for some time nowcontphy siatry prn consultedc onttyl 1000 mg po tid and lidocaine patch which is helpingsch eduled Oxycodone 10 mg po q 6 hours and dc prn doses for pain.cyclo benzaprine bidMonitor closely.se e above for management Osteoarthr itis of knee 417810706 M17.12 Z96.652 LTKR originally done on 02/11remains [...] 06/17monit or Chronic di astolic heart failure 764317628 I50.32 Pt says he never had any [...] fluid status, wts and labs. Diabetes mellitus 415970 09 E11.9 Last HgA1C was 7.9 in 11/2023.Fol lowed by endocrine at [facility].Contin uetrulicit y 1.5 weekly, tresiba 35 U qd, metformin 500 mg BID, januvia 25 mg qd, and SSIMonitor fingerstic ks TID and HgA1C as outpt. Essential hypertension 32171716 I10 stable 133/82Cont inue meds as above and amlodipine 2.5 mg qd.Monitor BP and labsDaily BPs ordered. Depressive disorder 3548 9007 F32.89 In hx.On no meds.Monit or mood.Psych consult prn. Benign pro static hyperplasia without outflow obstruction 577095086 N40.0 In hx, with some issues with retention at times.Cont inuetamsul osin 0.4 mg qd. [id number] Sonja Gibbs NP [facility] [address] 06/25/2024 10:45:21 06/28/2024 14:12:37 Asthenia 85873948 R53.1 remains with weakness to left leg and right arm06/25 right arm and left knee brace on in am and off in pm per dr anderson's ordersPT/O T eval and treat prn, off regular therapymon itor Spinal mg nosis of lumbar region 62806168 M48.062 With chronic back pain. hx of [...] and off in pmfu after MRI 07/29/24 [facility] at 1 pm sched from outside provider contPT/OT for strengthen ing, balance, gait training, safety and function prnremains barrington lift at this timeContin ue fall precaution s.Monitor for safety.Margareth mccullough pain controlCel ebrex remains on hold. Pain in right arm [id number] 004 M79.601 Denies trauma or injury. feels [...] above for management Osteoarthr itis of knee [id number] M17.12 Z96.652 LTKR originally done on 02/11remains [...] ext today on 06/17monit or Diabetes mellitus [id number] 09 E11.9 Last HgA1C was 7.9 in 11/2023.Fol lowed by endocrine at [facility].with BS of 58 on 06/25 and similar on 06/23, remains asymptomat icContinue trulicity 1.5 weekly, metformin 500 mg BID, januvia 25 mg qd, and SSI06/25 decrease (degludec) tresiba 30 U qd to 26 unitsMonit or fingerstic ks TID and HgA1C as outpt. [id number] MARIE TORRES NP [address] [address] 07/01/2024 11:24:41 07/02/2024 11:53:48 Constipation [id number] K59.09 Documented BM 06/24, 06/28Pt. states no [...] to scheduled dailyTo ER if condition worsens [id number] Sonja Gibbs NP [facility] [address] [address] 07/14/2024 13:30:49 07/16/2024 10:19:43 Diabetes mellitus [id number] E11.9 Last HgA1C was 7.9 in 11/2023.Fol [...] units of insulin in recent past Asthenia [id number] R53.1 remains with weakness to left leg and right arm12/20 right arm and left knee brace on in am and off in pm per dr anderson's ordersPT/O T eval and treat prn, off regular therapymon itor [id number] Sonja Gibbs NP [facility] [address] [address] 07/22/2024 14:17:32 07/23/2024 15:07:54 Constipation [id number] K59.09 with regular bm per patient todayCurre ntly no abd. pain, no N/V.BS m0Ltafvdfn e fluids, dietary fiber.cont senna plus 2 tabs qdmiralax dailyhouse bowel protocol prn Diabetes mellitus 142610 09 E11.9 Last HgA1C was 7.9 in 11/2023.Fol lowed by endocrine at [facility] with multiple low BS in amContinue trulicity 1.5 weeklymetf ormin 500 mg BIDanuvia 25 mg qd, and SSI(deglud ec)tresiba 20 unitsMonit or fingerstic ks TID and HgA1C as outpt.(of note was on 35 units of insulin in recent past) Asthenia [id number] R53.1 remains with weakness to left leg and right arm, and today with right leg weaknessri ght arm and left knee brace on in am and off in pm per dr anderson's ordersPT/O T eval and treat prn, off regular therapymon itor Spinal mg nosis of lumbar region [id number] M48.062 With chronic back pain. hx of oxycodone 10 mg QID at baseline and cont with fair management here While here a right shoulder xray and U/S done for swelling to lower right fingers both came back without fracture, dislocatio n, or thrombus. He is followed outpt by vascular for his lymphedema . MRI lumbar spine back 06/01/24 ordered outpt by pcp resulted-geraldo rade 1 reltrolist hesis of L2 in [...] in pmfu after MRI sched /29/[address] [facility] at 1 pm sched from outside providerco ntPT/OT for strengthen ing, balance, gait training, safety and function prnremains barrington lift at this timeContin ue fall precaution s.Monitor for safety.Mon itor pain controlCel ebrex remains on hold. Pain in right arm 319979 004 M79.601 Denies trauma or injury. feels [...] above for management Osteoarthr itis of knee [id number] M17.12 Z96.652 LTKR originally done on 02/11remains [...] concernsmo nitor Chronic di astolic heart failure [id number] I50.32 per hosp report of CHF.he never [...] fluid status, wts and labs. Essential hypertension 08222609 I10 stableCont inue meds as above and amlodipine 2.5 mg qd.Monitor BP and labsDaily BPs ordered. Depressive disorder 3548 9007 F32.89 In hx.On no meds.Monit or mood.Psych consult prn. Benign pro static hyperplasia without outflow obstruction [id number] N40.0 In hx, with some issues with retention at times.Cont inuetamsul osin 0.4 mg qd. Gastroesop hageal reflux disease without esophagitis 269954671 K21.9 Using TUMS frequently for GERD/GI sx. resolvingc ontpepcid 20 mg bidMonitor sx.If remain problemati c, consider trial of PPI Nausea and vomiting 1692 1999 R11.2 resolvedse e belowzofra n 4 mg po q 6 hours prn n/v x 30 days Chronic ki dney disease stage 2 [id number] N18.2 At baseline.C ontinue to avoid nephrotoxi c meds as able.Monit or labs.Renal consult prn. Hypercholesterolemia 136 52584 E78.2 Continueat orvastatin 20 mg qdfenofibr ate 145 mg qdvascepa 2 g BID,ASA 81 mg qd.Monitor labs as outpt. [id number] Sonja Gibbs NP [address] [place] [address] 07/30/2024 08:03:45 07/30/2024 09:06:12 Spinal stenosis of lumbar region 65861881 M48.062 With chronic back pain and weakness [...] in pmfu after cervical MRI sched 07/3107/29/24 [facility] with rec:neuros urgery consult with Dr Serna 07/30 referral to [facility] ordered as recommende d, has MRI today. contPT/OT prn, currently not working with himremCloze lift at this timeContin ue fall precaution s.Monitor for safety.Mon itor pain controlCel ebrex remains on hold. Asthenia [id number] R53.1 remains with weakness to left leg and right arm, and today with right leg weaknessri ght arm sling and left knee brace on in am and off in pm per dr anderson's ordersPT/O T eval and treat prn, off regular jean mccullough Pain in right arm 676562 004 M79.601 Denies trauma or injury. feels [...] above for management Osteoarthr itis of knee [id number] M17.12 Z96.652 LTKR originally done on 02/11remains [...] LastModified Time None Recorded Advance Directives Directive Y: FULL CODE no dialysis and okay to use nutrition-use hydration Payers Encounter Date Sequence Insurance Name Policy Number Policy Richardson Covered Member ID Richardson Member ID Guarantor Name 06/25/2024 1 [facility] - DOS ON OR AFTER 2022 - MEDICARE [place]AGE [place]/ADV ANTAGE - PPO) Carlos Cabrera [id number] Carlos Cabrera 07/01/2024 1 [facility] - DOS ON OR AFTER 2022 - [place]/ADV ANTAGE - PPO) Carlos Cabrera [id number] Carlos Cabrera 07/14/2024 1 [facility] - DOS ON OR AFTER 2022 - [place]/ADV ANTAGE - PPO) Carlos Cabrera [id number] Carlos Cabrera 07/22/2024 1 [facility] - DOS ON OR AFTER 2022 - [place]/ADV ANTAGE - PPO) Carlos Cabrera [id number] Carlos Cabrera 07/30/2024 1 [facility] - DOS ON OR AFTER 2022 - [place] RE[place]AC[place]/ADV ANTAGE - PPO) Carlos Cabrera [id number] Carlos Cabrera Notes Date Note Type Note Provider Name and Address Organization Details Recorded Time 06/25/2024 text/html Carlos is seen to day for an acute rounding visit. 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 He was seen by Dr Apple at [facility] ortho on 06/24 and recommended right sling and knee brace aswell as a cervical spine MRI and the arm pain could be related to the upper cervical spine. He will fu after MRI with Dr Apple for continued care. He continues with appt for 07/29/24 [facility] at 1 pm. On 06/15 his degludec insulin increased to 30 units qhs and now noted BS of 58 this am requiring juice and breakfast which then came up to 86 in 30 minutes. Also similar episode on 06/23. Will decrease insulin to 26 units and monitor. He remains asymptomatic with these episodes. On exam, Carlos reports he is doing okay today. He denies any overt pain, constipation, nausea, or vomiting today. He is at baseline since here and concerns as above. of note: His last MRI from 06/01/24 lumbar spine obtained from [facility]. MRI ordered outpt by pcp resulted:-grade 1 reltrolisthesis of L2 in relation to L3, similar to prior exam-moderate degenerative disc dx at L3-L4, mild to moderate at Q8-Q6-Aqegv-level degenerative dx throughout the entire lumbar spine resulting in varying degrees of spinal canal and foraminal stenosis Sonja Gibbs NP [address] [facility] [address], [address], [place], [address], [facility] 06/25/2024 11:35:04 07/01/2024 text/html Carlos is seen to day for an acute visit. Staff is reporting [...] have had a small BM this am. HILARY steinberg, is only on senna plus 2 tabs daily for bowel mgmt. Of note, takes scheduled oxycodone 10 mg qid. MARIE TORRES NP [address], [address], [place], [address], [facility] 07/01/2024 11:37:14 07/14/2024 text/html Carlos is seen to day for an acute visit. Pt is seen for low BS of 44 this am. After juice, breakfast and recheck he came up to 85. Seems his BS in 70s-80s more often lately and pt states he is eating less as he does not care for the food. He remained asymptomatic during low BS per nursing. Will decrease lantus again to 20 units. On exam, Carlos is in bed in NAD. He seems depressed and requests to go home and states social science professor is going to talk with him. A discussion is had about how he is a 2 assist/barrington lift and how he would get the help at home. He states I dont know, but Ill figure it out . Sonja Gibbs NP [address], [address], [place], [address], [facility] 07/16/2024 00:19:10 07/22/2024 text/html Carlos is seen to day for a 90 day routine visit. Carlos was originally admitted on 05/06 after a hospitalization for CHF exacerbation, edema, and weakness. Since here at [facility]: He has worked with rehab, but then plateaued and is now on group home care here. He is no longer receiving therapy. He continues to need 2 max assist for transfers and requires a barrington lift. He continues to request to go home but reports he lives alone and can only get one WINDOW DRAPER for a few hours a day currently. Social work requested to talk with him about plan. Note: SS looked in to getting him a power wheelchair, but [facility] said as long as he was here he wouldn't qualify, but would be able to get one if he goes home. He states he has 5 hr/day of WINDOW DRAPER time and social work states he has 54 hrs/wk of WINDOW DRAPER time. He has had some constipation and [...] His pcp Dr Jacinto referred him to [facility] spine [facility] sport with appt 07/29/24 at 1pm per pt. He was also seen by pain management here. He is followed by vascular and [facility] Dr Apple for the weakness. An MRI of lumbar spine was done and now [facility] requesting MRI of cervical neck for ?relation to the right arm weakness and numbness scheduled for 08/01/24. OVerall -On exam, Carlos is in bed in NAD. He requests to go home and states social science professor is going to talk with him. Denies any constipation or abd pain. He is not able to move either leg much today when asked to raise his legs, which is a change as he was able to move the right leg more in past. He remains with weakness to the right arm and left leg. Sonja Gibbs, [facility] [address], [address], [place], [address], [facility] [employer] 07/22/2024 18:36:19 07/30/2024 text/html Carlos is seen fo r an acute visit today. Carlos was originally admitted on 05/06 after a hospitalization for CHF exacerbation, edema, and weakness. CHF and edema resolved here. He has worked with rehab, but then plateaued and is now on group home care here. He is no longer receiving [...] His pcp Dr Jacinto referred him to [facility] spine [facility] sport with appt 07/29/24 at 1pm per pt. He is recommended to see Dr Serna. Once MRI done on 08/01 will send referral and tests to [facility] for appt. On 06/24 he saw ALESSANDRO Apple for the weakness and pain of right arm and left leg. An MRI of lumbar spine was done and now ALESSANDRO requesting MRI of cervical neck for ?relation [...] has decreased strength also. He shows this [employer] his appointment pickup is at 10:45 am today for the MRI. He reports pain is baseline with oxycodone and tolerable. Referral to Dr Serna is written for with all imaging to go with consult. Sonja Gibbs, DIAMOND [address], [address], [place], [address], [facility] [employer] 07/30/2024 09:06:11
== END 2024-07-30 11:11 | disposition home or self-care (01) ==
LOC: HO.MRI 11:10
PROVIDERS: PCP Internal Medicine; Visit Provider Orthopaedic Surgery
DX: R29.898 Other symptoms and signs involving the musculoskeletal system (principal); R20.0 Anesthesia of skin; R20.2 Paresthesia of skin
CPT/HCPCS: 72141

== ENCOUNTER 2024-08-09 12:52 | Outpatient (AMB) | payer OTHER, SELFPAY ==
--- NOTE | 2024-08-09 12:59 | A.SPINEOV_ITS ---
Vital Signs 08/09/24 13:03 Height 5 ft 8 in Weight 240 lb BMI 36.5 Intake Visit Reasons: progressive cervical myelopathy Intake Note: Mr. Cabrera is here today c/o neck pain that radiate down to the arms. Delivery Director Required: No Allergies Penicillins [PENICILLINS] Allergy (Severe, Verified 08/09/24 13:04) RASH jay pepper Allergy (Intermediate, Verified 08/09/24 13:04) Rash pepper (genus Capsicum) Adverse Reaction (Intermediate, Verified 08/09/24 13:04) rashes Physical Exam Vital Signs: BMI result Body Mass Index 36.5 Assessment & Plan Assessment & Plan (1) Cervical myelopathy: Code(s): G95.9 - Disease of spinal cord, unspecified Category: Medical Plan Dear Dr. Gray, Thank you for referring Carlos to our office today. He is a pleasant, complicated 68 year old wheelchair bound male who comes in today with a chief complaint of progressive muscle weakness in his bilateral lower extremities and right arm. He was previously evaluated for this by Dr. Allen in 2019. Based on their consult notes it sounds like in 2020 he had occasional heaviness in his arm with some pain, but otherwise was able to use his bilateral upper extremities without issue. He had no issues documented with dexterity, no issues dropping objects or using utensils, and no trouble with fine motor movements. He was ambulating with the occasional use of a walker. The MRI that was reviewed by Dr. Allen back in 2019 reportedly showed some stenosis at C5-6 and C6-7, and some questionable signal change which Dr. Allen did not think was concerning at the time. Today the patient comes in as an urgent referral from our colleagues at [facility]. He reports that his muscle weakness has progressed to the point where he went from effectively utilizing a walker for about 5-6 years to needing a wheelchair around 3 months ago. He can no longer support himself with his legs at all. He reports some numbness in his right hand, but denies numbness / tingling elsewhere. He reports some pain in his left lower back in his right shoulder, but denies pain elsewhere. He denies any shooting pains into his upper extremities. He does report some issues with dexterity and fine motor movements but does not report dropping things. He reports no issues with his bowel /bladder. He has a pertinent past medical history of 3 lumbar decomp[address] surgeries with Dr[address] Allen at [facility]. He reports the last surgery was around 2019. PMH: left quad tendon repair on , left total knee surgery, right-sided carpal tunnel release, unspecified pancreas surgery, major depression, hyperlipidemia, hypertension, type 2 diabetes (A1C 7.5 in fall of 2023), stage 3 chronic kidney disease, diabetic polyneuropathy. cataract surgery, cholecystectomy, osteoarthritis. Social hx: Patient does not smoke, reports no substance use. Medications: Exensive; see [employer] list. Allergies: PCN, peppers. Physical exam: the patient is wheelchair-bound, unable to ambulate independently. Examination performed with patient in wheelchair. the patient has 2/5 strength with bilateral EHL. He has 3/5 strength with dorsiflexion and plantar flexion bilaterally. Anterior tibialis and iliopsoas testing is also about 3/5 (no meaningful strength against resistance, only really antigravity). His sensation is diminished in his right hand compared to left but is overall intact to light touch. (+) Right-sided Mccauley's (-) left sided*, (+) 1-2 beats of clonus in both ankles*. Weakly (+) Babinski's bilaterally*. Notable muscle wasting in bilateral gastrocnemius and quadriceps. *Patient had trouble relaxing for special tests on exam, so these results may be under-reported from what they actually are at baseline. Imaging review: CT of cervical spine completed at [facility] [place] shows diffuse spondylosis of the cervical spine, with lordodic deforminty noted at C6-7. Extensive osteophyte bridging indicative of autofusion at C2-3, and possible anterior autofusion of C6-7. MRI of the cervical spine completed at [facility] [place] 2024 shows severe spinal cord compression at C4-5 with evidence of cord signal change and myelomalacia. There is also evidence of myelomalacia behind the C6-7 segment. There is severe right sided foraminal stenosis at C5-6, and moderate central canal / left foraminal stenosis at this level. Impression: Carlos is a pleasant 68-year-old male who comes in today with progressive cervical myelopathy. When compared to his previous evaluation by neurosurgeon Dr. Serna I believe he has significantly declined. it sounds like he was still ambulating relatively well with the assistance of a walker and still had fairly good strength in his bilateral lower extremities as recent as 2020. This has progressed to the point where about 3 months ago he was completely unable to hold himself up with his lower extremities and began needing a wheelchair to mobilize. His imaging shows severe spinal cord compression at C4-5 with T2 signal change in myelomalacia, his physical examination supports these findings. the patient needs decompression of at least the C4-5 area to address the severe spinal cord compression and myelomalacia seen at this level. I am going to send him for an urgent CT scan to evaluate the excessive anterior osteophyte growth and auto fusion seen in the cervical spine as this will help with surgical decision making for Dr. Isabel. I will also attempt to obtain the patient's surgical records from Dr. Allen to see exactly what surgeries were performed and when. I would like the patient to come back in 48 hours for re-evaluation when Dr. Isabel is in the office. Hopefully his CT scan will be done by then so we can review that as well and make a surgical plan. Thank you for allowing us to care for your patient. The total time spent with this visit with this patient was 65 minutes reviewing history, physical exam, CT & MRI imaging review, and implementation of treatment plan or further diagnostic testing Theron Isabel MD,PhD [facility] Orders: Orders CT cervical spine wo IV con Today G95.9 - Disease of spinal cord, unspecified Coding Level of Care Code New Pt Level 5 (03797) Diagnoses Cervical myelopathy G95.9
[2024-08-09 13:03] VITALS: BMI 36.5
--- OUTSIDE RECORDS SUMMARY | 2024-08-09 14:09 | XMS_ITS | Clinical Summary ---
Author Organization [facility] Facility Address [address] [place] [address] Care Team Providers Care Route Delivery Clerk Name Role Phone Tram Royal MD Primary Care Provider [phone] Allergies Active Allergy Reactions Criticality Noted Date [...] % PVNMA 04/28/2020 us [facility] Conversion LAB [id number] LICITED RESULTS Final Result PVNMA from Last 3 Months or Most Recently Relevant to Health Maintenance Insurance [address] [place] [id number] [place] [address] [place] [id number] [place] Care Teams Route Delivery Clerk Relationship Specialty Start Date End Date Tram Royal MD [address] [place], [place] PCP - General 07/17/20
--- OUTSIDE RECORDS SUMMARY | 2024-08-09 14:09 | XMS_ITS | Encounter Summary ---
Author Organization [facility] Address [address] [place] [address] Care Team Providers Care Rn Surgical Pcu Name Role Phone Tram Álvarez MD Primary Care Provider [phone] Encounter Details Date Type Department Care Team (Late Contact Info) Description 08/05/2024 Lab Requisition [facility] - Main Lab 299 [facility] [place] [address] Prince Le MD [address] [place] [address] [address] [place], [phone] Type 2 diabetes mellitus without complications [...] AM EST Office Visit Orthopedic Surgery - [place] [address] [phone] Clifford Benson DPM [address] [address] 08/19/2024 11:30 AM EST Consult Neurosurgery [facility] [address] [phone] Luz Boston PA 175 [facility], [address] [address] documented as of this encounter Procedures Procedure Name Priority Date/Time Associated Diagnosis Comments COMPLETE BLOOD COUNT Routine 08/06/2024 6:49 AM EST Type 2 diabetes mellitus without complications (CMS/HCC) C-REACTIVE PROTEIN Routine 08/06/2024 6: 49 AM EST Type 2 diabetes mellitus without complications (CMS/HCC) COMPREHENSIVE METABOLIC PANEL Routine 08/06/2024 6:49 AM EST Type 2 diabetes mellitus without complications (CMS/HCC) documented in this encounter Results * (ABNORMAL) C-reactive protein (08/06/2024 6:49 AM EST) C-Reactive Protein 0.73(H) <=0.50 mg/dL LAB CHEMISTRY METHOD 08/06/2024 9:31 AM [facility] Blood Venous blood specimen / Unknown Venipuncture / Unknown 08/06/2024 6:49 AM EST 08/06/2024 8:31 AM EST Prince Le MD LAB BLOOD ORDERABLES [facility] [address] [place] [address], * Comprehensive metabolic panel (08/06/2024 6:49 AM EST) Sodium 140 133 - 145 mmol/L LAB CHEMISTRY METHOD 08/06/2024 9:31 AM [facility] Potassium 5.0 3.5 - 5.5 mmol/L LAB CHEMISTRY METHOD 08/06/2024 9:31 AM [facility] Chloride 106 96 - 110 mmol/L LAB CHEMISTRY METHOD 08/06/2024 9:31 AM EST [facility] CO2 30 21 - 32 mmol/L LAB CHEMISTRY METHOD 08/06/2024 9:31 AM [facility] Anion Gap 4 3 - 11 LAB CHEMISTRY METHOD 08/06/2024 9:31 AM [facility] Glucose 99 70 - 100 mg/dL LAB CHEMISTRY METHOD 08/06/2024 9:31 AM [facility] BUN 25 5 - 25 mg/dL LAB CHEMISTRY METHOD 08/06/2024 9:31 AM [facility] Creatinine 1.10 0.70 - 1.30 mg/dL LAB CHEMISTRY METHOD 08/06/2024 9:31 AM [facility] eGFR 73 >=60 mL/min/1. 73m2 LAB CHEMISTRY METHOD 08/06/2024 9:31 AM [facility] Comment:Calculation based on the??Chronic Kidney Disease Epidemiology Collaboration (CKD-EPI) equation refit??without adjustment for race. BUN/Creatinine Ratio 22.7 LAB CHEMISTRY METHOD 08/06/2024 9:31 AM [facility] Calcium 9.5 8.5 - 10.5 mg/dL LAB CHEMISTRY METHOD 08/06/2024 9:31 AM [facility] AST (SGOT) 33 10 - 42 unit/L LAB CHEMISTRY METHOD 08/06/2024 9:31 AM [facility] ALT (SGPT) 26 10 - 60 unit/L LAB CHEMISTRY METHOD 08/06/2024 9:31 AM [facility] Alkaline Phosphatase 51 42 - 121 unit/L LAB CHEMISTRY METHOD 08/06/2024 9:31 AM [facility] Total Protein 6.6 6.0 - 8.0 g/dL LAB CHEMISTRY METHOD 08/06/2024 9:31 AM [facility] Albumin 3.4 3.2 - 5.0 g/dL LAB CHEMISTRY METHOD 08/06/2024 9:31 AM [facility] Total Bilirubin 0.4 0.0 - 1.4 mg/dL LAB CHEMISTRY METHOD 08/06/2024 9:31 AM [facility] Blood Venous blood specimen / Unknown Venipuncture / Unknown 08/06/2024 6:49 AM EST 08/06/2024 8:31 AM EST Prince Le MD LAB BLOOD ORDERABLES [facility] [address] [place] [address], * (ABNORMAL) Complete blood count (08/06/2024 6:49 AM EST) WBC 8.2 4.8 - 10.8 K/mcL LAB HEMETOLOGY METHOD 08/06/2024 9:12 AM EST [facility] RBC 4.50 4.50 - 5.50 M/mcL LAB HEMETOLOGY METHOD 08/06/2024 9:12 AM [facility] Hemoglobin 12.2(L) 13.5 - 17.5 g/dL LAB HEMETOLOGY METHOD 08/06/2024 9:12 AM [facility] Hematocrit 37.4(L) 42.0 - 54.0 % LAB HEMETOLOGY METHOD 08/06/2024 9:12 AM [facility] MCV 84.0 79.0 - 98.0 FL LAB HEMETOLOGY METHOD 08/06/2024 9:12 AM [facility] MCH 27.4 27.0 - 32.0 pcg LAB HEMETOLOGY METHOD 08/06/2024 9:12 AM [facility] MCHC 32.6 32.0 - 37.0 g/dL LAB HEMETOLOGY METHOD 08/06/2024 9:12 AM [facility] RDW 20.3(H) 11.0 - 15.0 % LAB HEMETOLOGY METHOD 08/06/2024 9:12 AM [facility] Platelets 351 130 - 400 K/mcL LAB HEMETOLOGY METHOD 08/06/2024 9:12 AM [facility] MPV 12.2(H) 7.0 - 11.0 FL LAB HEMETOLOGY METHOD 08/06/2024 9:12 AM EST [facility] NRBC 0.0 <1.0 % LAB HEMETOLOGY METHOD 08/06/2024 9:12 AM EST [facility] NRBC Absolute 0.00 <0.10 K/mcL LAB HEMETOLOGY METHOD 08/06/2024 9:12 AM EST [facility] Blood Venous blood specimen / Unknown Venipuncture / Unknown 08/06/2024 6:49 AM EST 08/06/2024 8:31 AM EST Prince Le MD LAB BLOOD ORDERABLES [facility] [address] [place] [address], documented in this encounter Visit Diagnoses Diagnosis Type 2 diabetes mellitus without complications (CMS/HCC) documented in this encounter Care Teams Rn Surgical Pcu Relationship Specialty Start Date End Date Tram Álvarez MD 2 [facility] , [address] Physician Associ D/B/A: [facility] JAS Duque PCP - General Internal Medicine 03/30/18 documented as of this encounter
--- OUTSIDE RECORDS SUMMARY | 2024-08-09 14:09 | XMS_ITS | Clinical Summary ---
Author Organization [facility] Address [address] [place] [address] Care Team Providers Care Block Hacker Name Role Phone Sade Dykes PA-C Primary Care Provider [phone] Source Comments PLEASE NOTE, if this patient [...] 60 Tab 0 12/01/19 14 Active Acidophilus-Pectin, [place] 25 million-100 cell-mg tabIndications:Dive rticulosis Take 1 tablet by mouth 2 (two) times daily. As directed by coating mixer supervisor 100 tablet 3 01/31/20 14 Active benazepril [...] Plan of Treatment Not on file Insurance [facility] [id number] Care Teams Block Hacker Relationship Specialty Start Date End Date Sade Dykes PA-C [address] [place] [address] [facility] - General 04/14/13
--- OUTSIDE RECORDS SUMMARY | 2024-08-09 14:10 | XMS_ITS | Data Portability ---
Author Organization [facility] Address [address] [place] [phone] Care Team Providers Care Staff Readiness Officer Name Role Phone HIM CCA OTHER LANG HERRERA Primary Care Provider [phone] Assessment No assessment recorded. Plan of Treatment [...] Available N ot Available [employer] 2 [place] active Not Available Not Available Not Available [...] SNOMED-CT Code Diagnosis ICD10 Code Diagnosis Note [id number] Alicia Perez MD Main - [facility]ED [address] [place] [phone] 04/05/2024 17:15:55 04/05/2024 20:37:12 Accidental fall [id number] I provided real -time medical direction via phone for this encounter, and was available for additional phone based assistance as needed. I have reviewed and agree with the Assessment and Plan as documented by the Research Rn Spec. Patient given the opportunit y to ask [...] Richardson Member ID Guarantor Name 04/05/2024 1 [facility] - DOS ON OR AFTER 2022 - DUAL ELIGIBLE - LONGTERM OPTIONS AND ONE CARE (MEDICARE REPLACEMENT/ADV ANTAGE - HMO) Carlos Cabrera [id number] Carlos Cabrera Notes Date Note Type Note Provider Name and Address Organization Details Recorded Time 04/05/2024 text/html CRC Nurse Triage Notes (Inder Sweeney): Chief Complaints: Falls Allergies: Unknown Comments: [facility] verified the Pt.'s name//address and phone number. [...] .................. .................. .................. .................. .................. .................. ............... Research Rn Spec Note From Dangelo [place]: Dispatched to the [...] he is working on with his PCP. [facility] [place]. Red flags discussed. .................. .................. .................. .................. .................. .................. .................. ............... Disposition: Fulfilled Alicia Perez MD [address] [facility],[address], [place], [address], MOHINI PAGE 04/05/2024 20:37:09
--- OUTSIDE RECORDS SUMMARY | 2024-08-09 14:10 | XMS_ITS | Clinical Summary ---
Author Organization [facility] Address [address] [place] [address] Care Team Providers Care Motor Vehicle Emissions Inspector Name Role Phone Tram Royal MD Primary [...] age to complete this topic Care Teams Motor Vehicle Emissions Inspector Relationship Specialty Start Date End Date Tram Royal MD 2 [facility] , [address] [facility] Physician Associ D/B/A: [facility] [place] [address] PCP - General Internal Medicine 03/30/18
--- OUTSIDE RECORDS SUMMARY | 2024-08-09 14:10 | XMS_ITS | Encounter Summary ---
Author Organization [facility] Address [address] [place] [address] Care Team Providers Care Digital Marketing Analyst Name Role Phone Tram Álvarez MD Primary Care Provider [phone] Encounter Details Date Type Department Care Team (Late st Contact Info) Description 05/14/2024 Lab Requisition [facility] - Main Lab 299 [facility] [place] [address] Prince Le MD 38 [facility] [address] [place], [phone] Essential (primary) hypertension Social History Tobacco [...] AM EST Office Visit Orthopedic Surgery - [place] [address] [phone] Clifford Benson DPM [address] [address] 08/19/2024 11:30 AM EST Consult Neurosurgery [facility] 175 [facility] 300 [place] [phone] Luz Boston PA 175 [facility], [facility] [address] [place] [address] documented as of this encounter Procedures Procedure Name Priority Date/Time Associated Diagnosis Comments COMPLETE BLOOD COUNT Routine 05/17/2024 6:41 AM EST Essential (primary) hypertension BASIC METABOLIC PANEL Routine 05/17/2024 6:41 AM EST Essential (primary) hypertension documented in this encounter Results * (ABNORMAL) Basic metabolic panel (05/17/2024 6:41 AM EST) Sodium 143 133 - 145 mmol/L LAB CHEMISTRY METHOD 05/17/2024 10:43 AM [facility] Potassium 4.5 3.5 - 5.5 mmol/L LAB CHEMISTRY METHOD 05/17/2024 10:43 AM [facility] Chloride 110 96 - 110 mmol/L LAB CHEMISTRY METHOD 05/17/2024 10:43 AM [facility] CO2 27 21 - 32 mmol/L LAB CHEMISTRY METHOD 05/17/2024 10:43 AM [facility] Anion Gap 6 3 - 11 LAB CHEMISTRY METHOD 05/17/2024 10:43 AM [facility] Glucose 99 70 - 100 mg/dL LAB CHEMISTRY METHOD 05/17/2024 10:43 AM [facility] BUN 37(H) 5 - 25 mg/dL LAB CHEMISTRY METHOD 05/17/2024 10:43 AM [facility] Creatinine 1.29 0.70 - 1.30 mg/dL LAB CHEMISTRY METHOD 05/17/2024 10:43 AM [facility] eGFR 60 >=60 mL/min/1. 73m2 LAB CHEMISTRY METHOD 05/17/2024 10:43 AM [facility] Comment:Calculation based on the??Chronic Kidney Disease Epidemiology Collaboration (CKD-EPI) equation refit??without adjustment for race. BUN/Creatinine Ratio 28.7 LAB CHEMISTRY METHOD 05/17/2024 10:43 AM [facility] Calcium 9.3 8.5 - 10.5 mg/dL LAB CHEMISTRY METHOD 05/17/2024 10:43 AM [facility] Blood Venous blood specimen / Unknown Venipuncture / Unknown 05/17/2024 6:41 AM EST 05/17/2024 9:49 AM EST Prince Le MD LAB BLOOD ORDERABLES [facility] [address] [place] [address], * (ABNORMAL) Complete blood count (05/17/2024 6:41 AM EST) WBC 9.0 4.8 - 10.8 K/mcL LAB HEMETOLOGY METHOD 05/17/2024 10:23 AM [facility] RBC 5.50 4.50 - 5.50 M/mcL LAB HEMETOLOGY METHOD 05/17/2024 10:23 AM [facility] Hemoglobin 15.0 13.5 - 17.5 g/dL LAB HEMETOLOGY METHOD 05/17/2024 10:23 AM [facility] Hematocrit 48.3 42.0 - 54.0 % LAB HEMETOLOGY METHOD 05/17/2024 10:23 AM [facility] MCV 88.0 79.0 - 98.0 FL LAB HEMETOLOGY METHOD 05/17/2024 10:23 AM [facility] MCH 27.3 27.0 - 32.0 pcg LAB HEMETOLOGY METHOD 05/17/2024 10:23 AM [facility] MCHC 31.1(L) 32.0 - 37.0 g/dL LAB HEMETOLOGY METHOD 05/17/2024 10:23 AM [facility] RDW 16.6(H) 11.0 - 15.0 % LAB HEMETOLOGY METHOD 05/17/2024 10:23 AM [facility] Platelets 240 130 - 400 K/mcL LAB HEMETOLOGY METHOD 05/17/2024 10:23 AM EST [facility] MPV 13.4(H) 7.0 - 11.0 FL LAB HEMETOLOGY METHOD 05/17/2024 10:23 AM EST [facility] NRBC 0.0 <1.0 % LAB HEMETOLOGY METHOD 05/17/2024 10:23 AM EST [facility] NRBC Absolute 0.00 <0.10 K/mcL LAB HEMETOLOGY METHOD 05/17/2024 10:23 AM EST [facility] Blood Venous blood specimen / Unknown Venipuncture / Unknown 05/17/2024 6:41 AM EST 05/17/2024 9:51 AM EST Prince Le MD LAB BLOOD ORDERABLES [facility] [address] [place] [address], documented in this encounter Visit Diagnoses Diagnosis Essential (primary) hypertension Unspecified essential hypertension documented in this encounter Care Teams Digital Marketing Analyst Relationship Specialty Start Date End Date Tram Álvarez MD 2 [facility] [address] Physician Associ D/B/A: [facility] [place] PCP - General Internal Medicine 03/30/18 documented as of this encounter
--- OUTSIDE RECORDS SUMMARY | 2024-08-09 14:10 | XMS_ITS | Encounter Summary ---
Author Organization [facility] Address [address] [place] [address] Care Team Providers Care Body Cleaner Name Role Phone Tram Álvarez MD Primary Care Provider [phone] Encounter Details Date Type Department Care Team (Late Contact Info) Description 06/18/2024 Lab Requisition [facility] - Main Lab 299 [facility] [place] [address] Prince Le MD [address] [place] [address] 204 [place], [address] Nausea with vomiting, unspecified; Chronic kidney [...] AM EST Office Visit Orthopedic Surgery - [place] [address] [phone] Clifford Benson DPM [address] [address] 08/19/2024 11:30 AM EST Consult Neurosurgery [employer] [address] [phone] Luz [place] PA 175 [facility], [address] [address] documented as of this encounter Procedures Procedure [...] mmol/L LAB CHEMISTRY METHOD 06/18/2024 11:17 AM [facility] Potassium 4.6 3.5 - 5.5 mmol/L LAB CHEMISTRY METHOD 06/18/2024 11:17 AM [facility] LAB Chloride 102 96 - 110 mmol/L LAB CHEMISTRY METHOD 06/18/2024 11:17 AM [facility] LAB CO2 32 21 - 32 mmol/L LAB CHEMISTRY METHOD 06/18/2024 11:17 AM [facility] LAB Anion Gap 8 3 - 11 LAB CHEMISTRY METHOD 06/18/2024 11:17 AM [facility] LAB Glucose 72 70 - 100 mg/dL LAB CHEMISTRY METHOD 06/18/2024 11:17 AM [facility] LAB BUN 35(H) 5 - 25 mg/dL LAB CHEMISTRY METHOD 06/18/2024 11:17 AM [facility] LAB Creatinine 1.44(H) 0.70 - 1.30 mg/dL LAB CHEMISTRY METHOD 06/18/2024 11:17 AM [facility] LAB eGFR 53(L) >=60 mL/min/1. 73m2 LAB CHEMISTRY METHOD 06/18/2024 11:17 AM [facility] LAB Comment:Calculation based on the??Chronic Kidney Disease Epidemiology Collaboration (CKD-EPI) equation refit??without adjustment for race. BUN/Creatinine Ratio 24.3 LAB CHEMISTRY METHOD 06/18/2024 11:17 AM [facility] Calcium 9.3 8.5 - 10.5 mg/dL LAB CHEMISTRY METHOD 06/18/2024 11:17 AM EST [facility] LAB Blood Venous blood specimen / Unknown Venipuncture / Unknown 06/18/2024 6:44 AM EST 06/18/2024 9:17 AM EST Prince Le MD LAB BLOOD ORDERABLES [facility] LAB 299 [place] [address], * (ABNORMAL) Complete blood count (06/18/2024 6:44 AM EST) WBC 8.4 4.8 - 10.8 K/mcL LAB HEMETOLOGY METHOD 06/18/2024 10:46 AM [facility] RBC 5.10 4.50 - 5.50 M/mcL LAB HEMETOLOGY METHOD 06/18/2024 10:46 AM [facility] Hemoglobin 14.2 13.5 - 17.5 g/dL LAB HEMETOLOGY METHOD 06/18/2024 10:46 AM [facility] LAB Hematocrit 43.5 42.0 - 54.0 % LAB HEMETOLOGY METHOD 06/18/2024 10:46 AM [facility] LAB MCV 86.1 79.0 - 98.0 FL LAB HEMETOLOGY METHOD 06/18/2024 10:46 AM [facility] LAB MCH 28.1 27.0 - 32.0 pcg LAB HEMETOLOGY METHOD 06/18/2024 10:46 AM [facility] LAB MCHC 32.6 32.0 - 37.0 g/dL LAB HEMETOLOGY METHOD 06/18/2024 10:46 AM [facility] LAB RDW 17.2(H) 11.0 - 15.0 % LAB HEMETOLOGY METHOD 06/18/2024 10:46 AM EST [facility] LAB Platelets 248 130 - 400 K/mcL LAB HEMETOLOGY METHOD 06/18/2024 10:46 AM EST [facility] LAB MPV 12.7(H) 7.0 - 11.0 FL LAB HEMETOLOGY METHOD 06/18/2024 10:46 AM EST [facility] LAB NRBC 0.0 <1.0 % LAB HEMETOLOGY METHOD 06/18/2024 10:46 AM [facility] LAB NRBC Absolute 0.00 <0.10 K/mcL LAB HEMETOLOGY METHOD 06/18/2024 10:46 AM [facility] LAB Blood Venous blood specimen / Unknown Venipuncture / Unknown 06/18/2024 6:44 AM EST 06/18/2024 9:17 AM EST Prince Le MD LAB BLOOD ORDERABLES [facility] LAB [address] [place] [address], documented in this encounter Visit Diagnoses Diagnosis Nausea with vomiting, unspecified Chronic kidney disease, unspecified documented in this encounter Care Teams Body Cleaner Relationship Specialty Start Date End Date Tram Álvarez MD 2 [facility] , [address] Physician Associ D/B/A: [facility] JAS Duque PCP - General Internal Medicine 03/30/18 documented as of this encounter
--- OUTSIDE RECORDS SUMMARY | 2024-08-09 14:10 | XMS_ITS | Clinical Summary ---
Author Organization 175 [facility] Address 175 [place] [address] Phone Care Team Providers Care Tube Cleaning Operator Name Role Phone Tram Álvarez MD Primary Care Provider [phone] Encounters Date Type Department Care Team Description 08/05/2024 Lab Requisition [facility] Lab [address] [place] [phone] Prince Le MD Type 2 diabetes mellitus without complications ([facility]/HCC) 07/29/2024 Lab Requisition [facility] Lab [address] [place] [phone] Prince Le MD Type 2 diabetes mellitus without complications ([facility]/HCC) 07/22/2024 Lab Requisition [facility] Lab [address] [place] [address] Prince Le MD Type 2 diabetes mellitus without complications ([facility]/HCC) 07/16/2024 Lab Requisition [facility] Lab [address] [place] [address] Prince Le MD Type 2 diabetes mellitus without complications ([facility]/HCC) 06/18/2024 Lab Requisition [facility] Main Lab [address] [place] [address] Prince Le MD Nausea with vomiting, unspecified; Chronic kidney disease, unspecified 05/28/2024 Lab Requisition [facility] Main Lab [address] [place] [address] Prince Le MD Essential (primary) hypertension 05/21/2024 Lab Requisition [facility] Lab [address] [place] [phone] Prince Le MD Essential (primary) hypertension 05/14/2024 Lab Requisition [facility] Lab [address] [place] [phone] Prince Le MD Essential (primary) hypertension from [...] Upcoming Encounters Date Type Department Care Team ([facility] st Contact Info) Description 08/12/2024 8:30 AM EST Office Visit Orthopedic Surgery [facility] [address] [phone] Clifford Benson DPTahir [address] [address] 08/19/2024 11:30 AM EST Consult Neurosurgery [facility] [address] [phone] Luz Boston PA [address] [address] Health Maintenance Due Date Last Done Comments [...] 05/08/2024 Diabetes: Annual GFR (Glomerular Filtration Rate) 08/06/2025 08/06/2024, 07/30/2024, 07/23/2024, Additional history exists Hypertension/CHF/CAD Annual BMP Blood Test 08/06/2025 08/06/2024, 07/30/2024, 07/23/2024, Additional history exists Influenza Vaccine Completed 04/15/2024, [...] Date/Time Associated Diagnosis Comments C-REACTIVE PROTEIN Routine 08/06/2024 6: 49 AM EST Type 2 diabetes mellitus without complications (CMS/HCC) COMPREHENSIVE METABOLIC PANEL Routine 08/06/2024 6:49 AM EST Type 2 diabetes mellitus without complications (CMS/HCC) COMPLETE BLOOD COUNT Routine 08/06/2024 6:49 AM [...] Months Results * (ABNORMAL) Complete blood count (08/06/2024 6:49 AM EST) Only the most recent of8 resultswithin the time period is included. WBC 8.2 4.8 - 10.8 K/mcL LAB HEMETOLOGY METHOD 08/06/2024 9:12 AM [facility] LAB RBC 4.50 4.50 - 5.50 M/mcL LAB HEMETOLOGY METHOD 08/06/2024 9:12 AM [facility] LAB Hemoglobin 12.2(L) 13.5 - 17.5 g/dL LAB HEMETOLOGY METHOD 08/06/2024 9:12 AM [facility] LAB Hematocrit 37.4(L) 42.0 - 54.0 % LAB HEMETOLOGY METHOD 08/06/2024 9:12 AM [facility] LAB MCV 84.0 79.0 - 98.0 FL LAB HEMETOLOGY METHOD 08/06/2024 9:12 AM [facility] LAB MCH 27.4 27.0 - 32.0 pcg LAB HEMETOLOGY METHOD 08/06/2024 9:12 AM [facility] LAB MCHC 32.6 32.0 - 37.0 g/dL LAB HEMETOLOGY METHOD 08/06/2024 9:12 AM [facility] LAB RDW 20.3(H) 11.0 - 15.0 % LAB HEMETOLOGY METHOD 08/06/2024 9:12 AM EST [facility] LAB Platelets 351 130 - 400 K/mcL LAB HEMETOLOGY METHOD 08/06/2024 9:12 AM EST [facility] LAB MPV 12.2(H) 7.0 - 11.0 FL LAB HEMETOLOGY METHOD 08/06/2024 9:12 AM EST [facility] LAB NRBC 0.0 <1.0 % LAB HEMETOLOGY METHOD 08/06/2024 9:12 AM EST [facility] LAB NRBC Absolute 0.00 <0.10 K/mcL LAB HEMETOLOGY METHOD 08/06/2024 9:12 AM EST [facility] LAB Blood Venous blood specimen / Unknown Venipuncture / Unknown 08/06/2024 6:49 AM EST 08/06/2024 8:31 AM EST Prince Le MD LAB BLOOD ORDERABLES [facility] LAB [address] [place] [address], * (ABNORMAL) C-reactive protein (08/06/2024 6:49 AM EST) Only the most recent of4 resultswithin the time period is included. C-Reactive Protein 0.73(H) <=0.50 mg/dL LAB CHEMISTRY METHOD 08/06/2024 9:31 AM EST [facility] LAB Blood Venous blood specimen / Unknown Venipuncture / Unknown 08/06/2024 6:49 AM EST 08/06/2024 8:31 AM EST Prince Le MD LAB BLOOD ORDERABLES [facility] LAB [address] [place] [address], [place] [phone] * Comprehensive metabolic panel (08/06/2024 6:49 AM EST) Only the most recent of4 resultswithin the time period is included. Sodium 140 133 - 145 mmol/L LAB CHEMISTRY METHOD 08/06/2024 9:31 AM [facility] Potassium 5.0 3.5 - 5.5 mmol/L LAB CHEMISTRY METHOD 08/06/2024 9:31 AM [facility] Chloride 106 96 - 110 mmol/L LAB CHEMISTRY METHOD 08/06/2024 9:31 AM [facility] CO2 30 21 - 32 mmol/L LAB CHEMISTRY METHOD 08/06/2024 9:31 AM [facility] Anion Gap 4 3 - 11 LAB CHEMISTRY METHOD 08/06/2024 9:31 AM [facility] Glucose 99 70 - 100 mg/dL LAB CHEMISTRY METHOD 08/06/2024 9:31 AM [facility] BUN 25 5 - 25 mg/dL LAB CHEMISTRY METHOD 08/06/2024 9:31 AM [facility] Creatinine 1.10 0.70 - 1.30 mg/dL LAB CHEMISTRY METHOD 08/06/2024 9:31 AM [facility] eGFR 73 >=60 mL/min/1. 73m2 LAB CHEMISTRY METHOD 08/06/2024 9:31 AM [facility] LAB Comment:Calculation based on the??Chronic Kidney Disease Epidemiology Collaboration (CKD-EPI) equation refit??without adjustment for race. BUN/Creatinine Ratio 22.7 LAB CHEMISTRY METHOD 08/06/2024 9:31 AM [facility] Calcium 9.5 8.5 - 10.5 mg/dL LAB CHEMISTRY METHOD 08/06/2024 9:31 AM [facility] AST (SGOT) 33 10 - 42 unit/L LAB CHEMISTRY METHOD 08/06/2024 9:31 AM [facility] ALT (SGPT) 26 10 - 60 unit/L LAB CHEMISTRY METHOD 08/06/2024 9:31 AM EST [facility] Alkaline Phosphatase 51 42 - 121 unit/L LAB CHEMISTRY METHOD 08/06/2024 9:31 AM [facility] Total Protein 6.6 6.0 - 8.0 g/dL LAB CHEMISTRY METHOD 08/06/2024 9:31 AM [facility] Albumin 3.4 3.2 - 5.0 g/dL LAB CHEMISTRY METHOD 08/06/2024 9:31 AM [facility] Total Bilirubin 0.4 0.0 - 1.4 mg/dL LAB CHEMISTRY METHOD 08/06/2024 9:31 AM [facility] Blood Venous blood specimen / Unknown Venipuncture / Unknown 08/06/2024 6:49 AM EST 08/06/2024 8:31 AM EST Prince Le MD LAB BLOOD ORDERABLES [facility] LAB [address] [place] [address], * (ABNORMAL) Basic metabolic panel (06/18/2024 6:44 AM EST) Only the most recent of4 resultswithin the time period is included. Sodium 142 133 - 145 mmol/L LAB CHEMISTRY METHOD 06/18/2024 11:17 AM [facility] Potassium 4.6 3.5 - 5.5 mmol/L LAB CHEMISTRY METHOD 06/18/2024 11:17 AM [facility] Chloride 102 96 - 110 mmol/L LAB CHEMISTRY METHOD 06/18/2024 11:17 AM [facility] CO2 32 21 - 32 mmol/L LAB CHEMISTRY METHOD 06/18/2024 11:17 AM [facility] Anion Gap 8 3 - 11 LAB CHEMISTRY METHOD 06/18/2024 11:17 AM [facility] Glucose 72 70 - 100 mg/dL LAB CHEMISTRY METHOD 06/18/2024 11:17 AM EST [facility] BUN 35(H) 5 - 25 mg/dL LAB CHEMISTRY METHOD 06/18/2024 11:17 AM [facility] Creatinine 1.44(H) 0.70 - 1.30 mg/dL LAB CHEMISTRY METHOD 06/18/2024 11:17 AM EST [facility] LAB eGFR 53(L) >=60 mL/min/1. 73m2 LAB CHEMISTRY METHOD 06/18/2024 11:17 AM EST [facility] LAB Comment:Calculation based on the??Chronic Kidney Disease Epidemiology Collaboration (CKD-EPI) equation refit??without adjustment for race. BUN/Creatinine Ratio 24.3 LAB CHEMISTRY METHOD 06/18/2024 11:17 AM [facility] Calcium 9.3 8.5 - 10.5 mg/dL LAB CHEMISTRY METHOD 06/18/2024 11:17 AM EST [facility] Blood Venous blood specimen / Unknown Venipuncture / Unknown 06/18/2024 6:44 AM EST 06/18/2024 9:17 AM EST Prince Le MD LAB BLOOD ORDERABLES [facility] LAB [address] [place] [address], from Last 3 Months Care Teams Tube Cleaning Operator Relationship Specialty Start Date End Date Tram Álvarez MD [address], [address] [facility] Physician Associ D/B/A: [facility] JAS Duque PCP - General Internal Medicine 03/30/18
--- OUTSIDE RECORDS SUMMARY | 2024-08-09 14:10 | XMS_ITS | Encounter Summary ---
Author Organization [facility] Address [address] [place] [address] Care Team Providers Care Aerospace Products Sales Engineer Name Role Phone Tram Álvarez MD Primary Care Provider [phone] Encounter Details Date Type Department Care Team (Late Contact Info) Description 07/22/2024 Lab Requisition [facility] - Main Lab 299 [facility] [place] [address] Prince Le MD [address] [place] [address] 204 [place], [address] Type 2 diabetes mellitus without complications [...] AM EST Office Visit Orthopedic Surgery - [place] [address] [phone] Clifford Benson DPM [address] [address] 08/19/2024 11:30 AM EST Consult Neurosurgery [place] [facility] [address] [phone] Luz [place] PA 175 [facility], [address] [address] documented as of this encounter Procedures Procedure [...] (ABNORMAL) C-reactive protein (07/23/2024 6:52 AM EST) C-Reactive Protein 0.76(H) <=0.50 mg/dL LAB CHEMISTRY METHOD 07/23/2024 10:47 AM [facility] LAB Blood Venous blood specimen / Unknown Venipuncture / Unknown 07/23/2024 6:52 AM EST 07/23/2024 9:26 AM EST Prince Le MD LAB BLOOD ORDERABLES [facility] LAB [address] [place] [address], * (ABNORMAL) Comprehensive metabolic panel (07/23/2024 6:52 AM EST) Sodium 137 133 - 145 mmol/L LAB CHEMISTRY METHOD 07/23/2024 10:47 AM [facility] Potassium 5.3 3.5 - 5.5 mmol/L LAB CHEMISTRY METHOD 07/23/2024 10:47 AM [facility] Chloride 102 96 - 110 mmol/L LAB CHEMISTRY METHOD 07/23/2024 10:47 AM [facility] CO2 28 21 - 32 mmol/L LAB CHEMISTRY METHOD 07/23/2024 10:47 AM [facility] LAB Anion Gap 7 3 - 11 LAB CHEMISTRY METHOD 07/23/2024 10:47 AM [facility] Glucose 78 70 - 100 mg/dL LAB CHEMISTRY METHOD 07/23/2024 10:47 AM [facility] BUN 39(H) 5 - 25 mg/dL LAB CHEMISTRY METHOD 07/23/2024 10:47 AM [facility] Creatinine 1.58(H) 0.70 - 1.30 mg/dL LAB CHEMISTRY METHOD 07/23/2024 10:47 AM [facility] LAB eGFR 47(L) >=60 mL/min/1. 73m2 LAB CHEMISTRY METHOD 07/23/2024 10:47 AM [facility] LAB Comment:Calculation based on the??Chronic Kidney Disease Epidemiology Collaboration (CKD-EPI) equation refit??without adjustment for race. BUN/Creatinine Ratio 24.7 LAB CHEMISTRY METHOD 07/23/2024 10:47 AM [facility] Calcium 9.5 8.5 - 10.5 mg/dL LAB CHEMISTRY METHOD 07/23/2024 10:47 AM [facility] AST (SGOT) 25 10 - 42 unit/L LAB CHEMISTRY METHOD 07/23/2024 10:47 AM [facility] ALT (SGPT) 26 10 - 60 unit/L LAB CHEMISTRY METHOD 07/23/2024 10:47 AM [facility] LAB Alkaline Phosphatase 68 42 - 121 unit/L LAB CHEMISTRY METHOD 07/23/2024 10:47 AM [facility] Total Protein 6.9 6.0 - 8.0 g/dL LAB CHEMISTRY METHOD 07/23/2024 10:47 AM [facility] Albumin 3.5 3.2 - 5.0 g/dL LAB CHEMISTRY METHOD 07/23/2024 10:47 AM [facility] Total Bilirubin 0.4 0.0 - 1.4 mg/dL LAB CHEMISTRY METHOD 07/23/2024 10:47 AM [facility] Blood Venous blood specimen / Unknown Venipuncture / Unknown 07/23/2024 6:52 AM EST 07/23/2024 9:26 AM EST Prince Le MD LAB BLOOD ORDERABLES [facility] LAB [address] [place] [address], * (ABNORMAL) Complete blood count (07/23/2024 6:52 AM EST) WBC 9.2 4.8 - 10.8 K/mcL LAB HEMETOLOGY METHOD 07/23/2024 10:13 AM EST [facility] RBC 4.90 4.50 - 5.50 M/mcL LAB HEMETOLOGY METHOD 07/23/2024 10:13 AM [facility] Hemoglobin 13.6 13.5 - 17.5 g/dL LAB HEMETOLOGY METHOD 07/23/2024 10:13 AM [facility] Hematocrit 41.2(L) 42.0 - 54.0 % LAB HEMETOLOGY METHOD 07/23/2024 10:13 AM [facility] LAB MCV 83.7 79.0 - 98.0 FL LAB HEMETOLOGY METHOD 07/23/2024 10:13 AM [facility] MCH 27.6 27.0 - 32.0 pcg LAB HEMETOLOGY METHOD 07/23/2024 10:13 AM [facility] MCHC 33.0 32.0 - 37.0 g/dL LAB HEMETOLOGY METHOD 07/23/2024 10:13 AM [facility] RDW 19.0(H) 11.0 - 15.0 % LAB HEMETOLOGY METHOD 07/23/2024 10:13 AM [facility] Platelets 364 130 - 400 K/mcL LAB HEMETOLOGY METHOD 07/23/2024 10:13 AM [facility] LAB MPV 12.2(H) 7.0 - 11.0 FL LAB HEMETOLOGY METHOD 07/23/2024 10:13 AM EST [facility] NRBC 0.0 <1.0 % LAB HEMETOLOGY METHOD 07/23/2024 10:13 AM EST [facility] LAB NRBC Absolute 0.00 <0.10 K/mcL LAB HEMETOLOGY METHOD 07/23/2024 10:13 AM EST [facility] Blood Venous blood specimen / Unknown Venipuncture / Unknown 07/23/2024 6:52 AM EST 07/23/2024 9:26 AM EST Prince Le MD LAB BLOOD ORDERABLES [facility] [address] [place] [address], documented in this encounter Visit Diagnoses Diagnosis Type 2 diabetes mellitus without complications (CMS/HCC) documented in this encounter Care Teams Aerospace Products Sales Engineer Relationship Specialty Start Date End Date Tram Álvarez MD 2 [facility] [address] Physician Associ D/B/A: [facility] JAS Duque PCP - General Internal Medicine 03/30/18 documented as of this encounter
--- OUTSIDE RECORDS SUMMARY | 2024-08-09 14:10 | XMS_ITS | Clinical Summary ---
Author Organization [employer] Address [address] [facility] 7[address] [place] [address] Care Team Providers Care Supervisor Waterworks Name Role Phone Unavailable Primary Care Provider Unavailabl e Social History Tobacco Use Types Packs/Day Years [...] 1967 Zoster Vaccines (1 of 2) 10/04/2005 Pneumococcal Vaccine: 50+ Years (2 of 2 - PCV) 07/09/2011 07/09/2010 DTaP/Tdap/Td Vaccines (2 - T d or Tdap) 08/31/2020 08/31/2010 COVID-19 Vaccine ( - 2023-2 5 season) [...]
--- OUTSIDE RECORDS SUMMARY | 2024-08-09 14:10 | XMS_ITS | Encounter Summary ---
Author Organization [facility] Address [address] [place] [address] Care Team Providers Care Bunk House Worker Name Role Phone Tram Álvarez MD Primary Care Provider [phone] Encounter Details Date Type Department Care Team (Late st Contact Info) Description 05/28/2024 Lab Requisition [facility] - Main Lab 299 [facility] [place] [address] Prince Le MD 38 [facility] 204 [place], [address] Essential (primary) hypertension Social History Tobacco [...] AM EST Office Visit Orthopedic Surgery - [place] [address] [phone] Clifford Benson DPM [address] [address] 08/19/2024 11:30 AM EST Consult Neurosurgery [place] [facility] 175 [facility] 300 [place] [phone] Luz Boston PA 175 [facility], [facility] 300 [place] [address] documented as of this encounter Procedures Procedure Name Priority Date/Time Associated Diagnosis Comments COMPLETE BLOOD COUNT Routine 05/31/2024 7:20 AM EST Essential (primary) hypertension BASIC METABOLIC PANEL Routine 05/31/2024 7:20 AM EST Essential (primary) hypertension documented in this encounter Results * (ABNORMAL) Basic metabolic panel (05/31/2024 7:20 AM EST) Sodium 142 133 - 145 mmol/L LAB CHEMISTRY METHOD 05/31/2024 11:37 AM [facility] Potassium 4.5 3.5 - 5.5 mmol/L LAB CHEMISTRY METHOD 05/31/2024 11:37 AM [facility] Chloride 108 96 - 110 mmol/L LAB CHEMISTRY METHOD 05/31/2024 11:37 AM [facility] CO2 28 21 - 32 mmol/L LAB CHEMISTRY METHOD 05/31/2024 11:37 AM [facility] Anion Gap 6 3 - 11 LAB CHEMISTRY METHOD 05/31/2024 11:37 AM [facility] Glucose 104(H) 70 - 100 mg/dL LAB CHEMISTRY METHOD 05/31/2024 11:37 AM [facility] BUN 25 5 - 25 mg/dL LAB CHEMISTRY METHOD 05/31/2024 11:37 AM [facility] Creatinine 1.15 0.70 - 1.30 mg/dL LAB CHEMISTRY METHOD 05/31/2024 11:37 AM [facility] eGFR 69 >=60 mL/min/1. 73m2 LAB CHEMISTRY METHOD 05/31/2024 11:37 AM [facility] LAB Comment:Calculation based on the??Chronic Kidney Disease Epidemiology Collaboration (CKD-EPI) equation refit??without adjustment for race. BUN/Creatinine Ratio 21.7 LAB CHEMISTRY METHOD 05/31/2024 11:37 AM [facility] Calcium 9.2 8.5 - 10.5 mg/dL LAB CHEMISTRY METHOD 05/31/2024 11:37 AM [facility] Blood Venous blood specimen / Unknown Venipuncture / Unknown 05/31/2024 7:20 AM EST 05/31/2024 10:13 AM EST Prince Le MD LAB BLOOD ORDERABLES [facility] [address] [place] [address], * (ABNORMAL) Complete blood count (05/31/2024 7:20 AM EST) WBC 8.8 4.8 - 10.8 K/mcL LAB HEMETOLOGY METHOD 05/31/2024 10:39 AM [facility] RBC 5.10 4.50 - 5.50 M/mcL LAB HEMETOLOGY METHOD 05/31/2024 10:39 AM [facility] Hemoglobin 14.2 13.5 - 17.5 g/dL LAB HEMETOLOGY METHOD 05/31/2024 10:39 AM [facility] Hematocrit 44.7 42.0 - 54.0 % LAB HEMETOLOGY METHOD 05/31/2024 10:39 AM [facility] MCV 87.0 79.0 - 98.0 FL LAB HEMETOLOGY METHOD 05/31/2024 10:39 AM [facility] MCH 27.6 27.0 - 32.0 pcg LAB HEMETOLOGY METHOD 05/31/2024 10:39 AM [facility] MCHC 31.8(L) 32.0 - 37.0 g/dL LAB HEMETOLOGY METHOD 05/31/2024 10:39 AM [facility] RDW 16.5(H) 11.0 - 15.0 % LAB HEMETOLOGY METHOD 05/31/2024 10:39 AM [facility] Platelets 242 130 - 400 K/mcL LAB HEMETOLOGY METHOD 05/31/2024 10:[address] [facility] MPV 12.5(H) 7.0 - 11.0 FL LAB HEMETOLOGY METHOD 05/31/2024 10:[address] [facility] NRBC 0.0 <1.0 % LAB HEMETOLOGY METHOD 05/31/2024 10:[address] [facility] NRBC Absolute 0.00 <0.10 K/mcL LAB HEMETOLOGY METHOD 05/31/2024 10:[address] [facility] Blood Venous blood specimen / Unknown Venipuncture / Unknown 05/31/2024 7:20 AM EST 05/31/2024 10:16 AM EST Prince Le MD LAB BLOOD ORDERABLES [facility] [address] [place] [address], documented in this encounter Visit Diagnoses Diagnosis Essential (primary) hypertension Unspecified essential hypertension documented in this encounter Care Teams Bunk House Worker Relationship Specialty Start Date End Date Tram Álvarez MD 2 [facility] [address] Physician Associ D/B/A: [facility] [place] PCP - General Internal Medicine 03/30/18 documented as of this encounter
--- OUTSIDE RECORDS SUMMARY | 2024-08-09 14:10 | XMS_ITS | Encounter Summary ---
Author Organization [facility] Address [address] [place] [address] Care Team Providers Care Fisher Mussel Name Role Phone Tram Álvarez MD Primary Care Provider Encounter Details Date Type Department Care Team (Late Contact Info) Description 07/16/2024 Lab Requisition [facility] - Main Lab 299 [facility] [place] [address] Prince Le MD [address] [place] [address] 204 [place], [address] Type 2 diabetes mellitus without complications [...] AM EST Office Visit Orthopedic Surgery - [place] [address] [phone] Clifford Benson DPM [address] [address] 08/19/2024 11:30 AM EST Consult Neurosurgery [place] [facility] [address] [phone] Luz Boston PA 175 [facility], [address] [address] documented as of this encounter Procedures Procedure [...] (ABNORMAL) C-reactive protein (07/16/2024 8:00 AM EST) C-Reactive Protein 1.30(H) <=0.50 mg/dL LAB CHEMISTRY METHOD 07/16/2024 12:50 PM [facility] Blood Venous blood specimen / Unknown Venipuncture / Unknown 07/16/2024 8:00 AM EST 07/16/2024 11:21 AM EST Prince Le MD LAB BLOOD ORDERABLES [facility] [address] [place] [address], * (ABNORMAL) Comprehensive metabolic panel (07/16/2024 8:00 AM EST) Sodium 137 133 - 145 mmol/L LAB CHEMISTRY METHOD 07/16/2024 1:13 PM [facility] Potassium 5.1 3.5 - 5.5 mmol/L LAB CHEMISTRY METHOD 07/16/2024 1:13 PM [facility] Chloride 103 96 - 110 mmol/L LAB CHEMISTRY METHOD 07/16/2024 1:13 PM [facility] CO2 27 21 - 32 mmol/L LAB CHEMISTRY METHOD 07/16/2024 1:13 PM [facility] Anion Gap 7 3 - 11 LAB CHEMISTRY METHOD 07/16/2024 1:13 PM [facility] Glucose 40(L) 70 - 100 mg/dL LAB CHEMISTRY METHOD 07/16/2024 1:13 PM [facility] BUN 35(H) 5 - 25 mg/dL LAB CHEMISTRY METHOD 07/16/2024 1:13 PM [facility] Creatinine 1.27 0.70 - 1.30 mg/dL LAB CHEMISTRY METHOD 07/16/2024 1:13 PM [facility] eGFR 62 >=60 mL/min/1. 73m2 LAB CHEMISTRY METHOD 07/16/2024 1:13 PM [facility] Comment:Calculation based on the??Chronic Kidney Disease Epidemiology Collaboration (CKD-EPI) equation refit??without adjustment for race. BUN/Creatinine Ratio 27.6 LAB CHEMISTRY METHOD 07/16/2024 1:13 PM [facility] Calcium 9.0 8.5 - 10.5 mg/dL LAB CHEMISTRY METHOD 07/16/2024 1:13 PM [facility] AST (SGOT) 18 10 - 42 unit/L LAB CHEMISTRY METHOD 07/16/2024 1:13 PM [facility] ALT (SGPT) 19 10 - 60 unit/L LAB CHEMISTRY METHOD 07/16/2024 1:13 PM [facility] Alkaline Phosphatase 62 42 - 121 unit/L LAB CHEMISTRY METHOD 07/16/2024 1:13 PM [facility] Total Protein 6.7 6.0 - 8.0 g/dL LAB CHEMISTRY METHOD 07/16/2024 1:13 PM [facility] Albumin 3.5 3.2 - 5.0 g/dL LAB CHEMISTRY METHOD 07/16/2024 1:13 PM [facility] Total Bilirubin 0.4 0.0 - 1.4 mg/dL LAB CHEMISTRY METHOD 07/16/2024 1:13 PM [facility] Blood Venous blood specimen / Unknown Venipuncture / Unknown 07/16/2024 8:00 AM EST 07/16/2024 11:21 AM EST Prince eL MD LAB BLOOD ORDERABLES [facility] [address] [place] [address], * (ABNORMAL) Complete blood count (07/16/2024 8:00 AM EST) WBC 10.9(H) 4.8 - 10.8 K/mcL LAB HEMETOLOGY METHOD 07/16/2024 11:53 AM [facility] RBC 4.90 4.50 - 5.50 M/mcL LAB HEMETOLOGY METHOD 07/16/2024 11:53 AM [facility] Hemoglobin 13.4(L) 13.5 - 17.5 g/dL LAB HEMETOLOGY METHOD 07/16/2024 11:53 AM [facility] Hematocrit 41.6(L) 42.0 - 54.0 % LAB HEMETOLOGY METHOD 07/16/2024 11:53 AM [facility] MCV 85.1 79.0 - 98.0 FL LAB HEMETOLOGY METHOD 07/16/2024 11:53 AM [facility] MCH 27.4 27.0 - 32.0 pcg LAB HEMETOLOGY METHOD 07/16/2024 11:53 AM [facility] MCHC 32.2 32.0 - 37.0 g/dL LAB HEMETOLOGY METHOD 07/16/2024 11:53 AM [facility] RDW 18.3(H) 11.0 - 15.0 % LAB HEMETOLOGY METHOD 07/16/2024 11:53 AM [facility] Platelets 413(H) 130 - 400 K/mcL LAB HEMETOLOGY METHOD 07/16/2024 11:53 AM EST [facility] MPV 12.4(H) 7.0 - 11.0 FL LAB HEMETOLOGY METHOD 07/16/2024 11:53 AM EST [facility] NRBC 0.0 <1.0 % LAB HEMETOLOGY METHOD 07/16/2024 11:53 AM EST [facility] NRBC Absolute 0.00 <0.10 K/mcL LAB HEMETOLOGY METHOD 07/16/2024 11:53 AM EST [facility] Blood Venous blood specimen / Unknown Venipuncture / Unknown 07/16/2024 8:00 AM EST 07/16/2024 11:21 AM EST Prince Le MD LAB BLOOD ORDERABLES [facility] [address] [place], [place] [address] [phone] documented in this encounter Visit Diagnoses Diagnosis Type 2 diabetes mellitus without complications (CMS/HCC) documented in this encounter Care Teams Fisher Mussel Relationship Specialty Start Date End Date Tram Álvarez MD 2 [facility] , [address] Physician Associ D/B/A: [facility] JAS Duque PCP - General Internal Medicine 03/30/18 documented as of this encounter
--- OUTSIDE RECORDS SUMMARY | 2024-08-09 14:10 | XMS_ITS | Encounter Summary ---
Author Organization [facility] Address [address] [place] [address] Care Team Providers Care Lead Mason Tender Name Role Phone Tram Álvarez MD Primary Care Provider [phone] Encounter Details Date Type Department Care Team (Late Contact Info) Description 07/29/[address] [facility] - Main Lab 299 [facility] [place] [address] Prince Le MD [address] [place] [address] 204 [place], [address] Type 2 diabetes mellitus without complications [...] AM EST Office Visit Orthopedic Surgery - [place] [address] [phone] Clifford Benson DPM [address] [address] 08/19/2024 11:30 AM EST Consult Neurosurgery [facility] [address] [phone] Luz Boston PA 175 [facility], [address] [address] documented as of this encounter Procedures Procedure [...] (ABNORMAL) C-reactive protein (07/30/2024 7:30 AM EST) C-Reactive Protein 1.22(H) <=0.50 mg/dL LAB CHEMISTRY METHOD 07/30/2024 10:25 AM [facility] Blood Venous blood specimen / Unknown Venipuncture / Unknown 07/30/2024 7:30 AM EST 07/30/2024 9:39 AM EST Prince Le MD LAB BLOOD ORDERABLES [facility] [address] [place] [address], * (ABNORMAL) Comprehensive metabolic panel (07/30/2024 7:30 AM EST) Sodium 140 133 - 145 mmol/L LAB CHEMISTRY METHOD 07/30/2024 10:25 AM EST [facility] Potassium 5.1 3.5 - 5.5 mmol/L LAB CHEMISTRY METHOD 07/30/2024 10:25 AM [facility] Chloride 107 96 - 110 mmol/L LAB CHEMISTRY METHOD 07/30/2024 10:25 AM EST [facility] CO2 31 21 - 32 [...] LAB BLOOD ORDERABLES [facility] [address] [place] [address], * (ABNORMAL) Complete blood count (07/30/2024 7:30 AM EST) WBC 8.9 4.8 - 10.8 K/mcL LAB HEMETOLOGY METHOD 07/30/2024 9:55 AM EST [facility] RBC 4.30(L) 4.50 - 5.50 M/mcL LAB HEMETOLOGY METHOD 07/30/2024 9:55 AM [place] [...] [place] LAB HEMETOLOGY METHOD 07/30/2024 9:55 AM EST [facility] NRBC 0.0 <1.0 % LAB HEMETOLOGY METHOD 07/30/2024 9:55 AM EST [facility] NRBC Absolute 0.00 <0.10 K/mcL LAB HEMETOLOGY METHOD 07/30/2024 9:55 AM EST [facility] Blood Venous blood specimen / Unknown Venipuncture / Unknown 07/30/2024 7:30 AM EST 07/30/2024 9:39 AM EST Prince Le MD LAB BLOOD ORDERABLES [facility] [address] [place] [address], documented in this encounter Visit Diagnoses Diagnosis Type 2 diabetes mellitus without complications (CMS/HCC) documented in this encounter Care Teams Lead Mason Tender Relationship Specialty Start Date End Date Tram Álvarez MD 2 [facility] [address] Physician Associ D/B/A: [facility] JAS Duque PCP - General Internal Medicine 03/30/18 documented as of this encounter
--- OUTSIDE RECORDS SUMMARY | 2024-08-09 14:10 | XMS_ITS | Encounter Summary ---
Author Organization [facility] Address [address] [place] [address] Care Team Providers Care [employer] Supervisor Name Role Phone Tram Álvarez MD Primary Care Provider [phone] Encounter Details Date Type Department Care Team (Late st Contact Info) Description 05/21/2024 Lab Requisition [facility] - Main Lab 299 [facility] [place] [address] Prince Le MD 38 [facility] 204 [place], [address] Essential (primary) hypertension Social History Tobacco [...] AM EST Office Visit Orthopedic Surgery - [place] [address] [phone] Clifford Benson DPM [address] [address] 08/19/2024 11:30 AM EST Consult Neurosurgery [facility] 175 [facility] 300 [place] [phone] Luz Boston PA 175 [facility] [place] [address] [place] [address] documented as of this encounter Procedures Procedure Name Priority Date/Time Associated Diagnosis Comments COMPLETE BLOOD COUNT Routine 05/24/2024 6:00 AM EST Essential (primary) hypertension BASIC METABOLIC PANEL Routine 05/24/2024 6:00 AM EST Essential (primary) hypertension documented in this encounter Results * (ABNORMAL) Basic metabolic panel (05/24/2024 6:00 AM EST) Sodium 142 133 - 145 mmol/L LAB CHEMISTRY METHOD 05/24/2024 9:02 AM [facility] Potassium 4.2 3.5 - 5.5 mmol/L LAB CHEMISTRY METHOD 05/24/2024 9:02 AM [facility] Chloride 109 96 - 110 mmol/L LAB CHEMISTRY METHOD 05/24/2024 9:02 AM [facility] CO2 28 21 - 32 mmol/L LAB CHEMISTRY METHOD 05/24/2024 9:02 AM [facility] Anion Gap 5 3 - 11 LAB CHEMISTRY METHOD 05/24/2024 9:02 AM [facility] Glucose 129(H) 70 - 100 mg/dL LAB CHEMISTRY METHOD 05/24/2024 9:02 AM [facility] BUN 38(H) 5 - 25 mg/dL LAB CHEMISTRY METHOD 05/24/2024 9:02 AM [facility] Creatinine 1.33(H) 0.70 - 1.30 mg/dL LAB CHEMISTRY METHOD 05/24/2024 9:02 AM [facility] eGFR 58(L) >=60 mL/min/1. 73m2 LAB CHEMISTRY METHOD 05/24/2024 9:02 AM [facility] Comment:Calculation based on the??Chronic Kidney Disease Epidemiology Collaboration (CKD-EPI) equation refit??without adjustment for race. BUN/Creatinine Ratio 28.6 LAB CHEMISTRY METHOD 05/24/2024 9:02 AM [facility] Calcium 9.2 8.5 - 10.5 mg/dL LAB CHEMISTRY METHOD 05/24/2024 9:02 AM [facility] Blood Venous blood specimen / Unknown Venipuncture / Unknown 05/24/2024 6:00 AM EST 05/24/2024 7:45 AM EST Prince Le MD LAB BLOOD ORDERABLES [facility] [address] [place] [address], * (ABNORMAL) Complete blood count (05/24/2024 6:00 AM EST) WBC 9.3 4.8 - 10.8 K/mcL LAB HEMETOLOGY METHOD 05/24/2024 9:03 AM [facility] RBC 4.90 4.50 - 5.50 M/mcL LAB HEMETOLOGY METHOD 05/24/2024 9:03 AM [facility] Hemoglobin 13.6 13.5 - 17.5 g/dL LAB HEMETOLOGY METHOD 05/24/2024 9:03 AM [facility] Hematocrit 43.1 42.0 - 54.0 % LAB HEMETOLOGY METHOD 05/24/2024 9:03 AM [facility] MCV 87.4 79.0 - 98.0 FL LAB HEMETOLOGY METHOD 05/24/2024 9:03 AM [facility] MCH 27.6 27.0 - 32.0 pcg LAB HEMETOLOGY METHOD 05/24/2024 9:03 AM [facility] MCHC 31.6(L) 32.0 - 37.0 g/dL LAB HEMETOLOGY METHOD 05/24/2024 9:03 AM [facility] RDW 16.4(H) 11.0 - 15.0 % LAB HEMETOLOGY METHOD 05/24/2024 9:03 AM [facility] Platelets 249 130 - 400 K/mcL LAB HEMETOLOGY METHOD 05/24/2024 9:03 AM EST [facility] MPV 13.1(H) 7.0 - 11.0 FL LAB HEMETOLOGY METHOD 05/24/2024 9:03 AM EST [facility] NRBC 0.0 <1.0 % LAB HEMETOLOGY METHOD 05/24/2024 9:03 AM EST [facility] NRBC Absolute 0.00 <0.10 K/mcL LAB HEMETOLOGY METHOD 05/24/2024 9:03 AM EST [facility] Blood Venous blood specimen / Unknown Venipuncture / Unknown 05/24/2024 6:00 AM EST 05/24/2024 7:45 AM EST Prince Le MD LAB BLOOD ORDERABLES [facility] [address] [place], [place] [address] [phone] documented in this encounter Visit Diagnoses Diagnosis Essential (primary) hypertension Unspecified essential hypertension documented in this encounter Care Teams [employer] Supervisor Relationship Specialty Start Date End Date Tram Álvarez MD 2 [facility] , [address] Physician Associ D/B/A: [facility] [place], [place] PCP - General Internal Medicine 03/30/18 documented as of this encounter
--- OUTSIDE RECORDS SUMMARY | 2024-08-09 14:11 | XMS_ITS | Data Portability ---
Author Organization [facility], Main Office Address [address] [place] [address] Care Team Providers Care Guidance Services Coordinator Name Role Phone LANG HERRERA Primary Care Provider [facility] - 4TH FLOOR OTHER Assessment No assessment [...] Address Organization Details Recorded Time Diabetes mellitus 61264465 Active 2019 YANG SWEET [address], [address], [place], [address], [facility] 0 09:29:33 Depressive disorder 27697611 Active 2019 YANG SWEET [address], [address], [place], [address], [facility] 0 09:29:39 Essential hypertensio n 44932447 Active 2019 YANG SWEET [address], [place], [address], [facility] 0 09:29:47 Hypercholes terolemia 64738235 Active 2019 YANG SWEET [address], [address], [place], [address], [facility] 0 09:29:57 Vitamin D deficiency 07042112 Active 2019 YANG SWEET [address], [address], [place], [address], [place] [facility] 0 09:30:10 Insomnia 606610707 Active 2019 YANG SWEET [address], [address], [place], [address], [place] - [facility] 0 09:30:19 Spinal stenosis of lumbar region 94683186 Active 2019 YANG SWEET [address], [address], [place], [address], [place] - [facility] 0 09:30:43 Total knee replacement Active 2022 Sonja Gibbs NP [address] , [address], [place], [address], [facility] - [facility] 3 09:12:50 Acute pain of joint of knee 9566081886663 04 Active 2022 Sonja Gibbs NP [address], [address], [place], [address], [facility] - [facility] 3 09:14:53 Constipatio n 00130183 Active 2022 Sonja Gibbs NP [address], [address], [place], [address], [facility] 3 10:15:39 Osteoarthri tis of knee 985987481 Active 2022 Judie Camacho MD [address], [address], [place], [address], [facility] 3 20:37:14 Chronic kidney disease stage 1 534291805 Active 2022 Judie Camacho MD [address], [address], [place], [address], [facility] 3 20:53:16 Chronic diastolic heart failure 993264556 Active 2023 Judie Camacho MD [address], [address], [place], [address], [facility] 4 21:28:14 Chronic kidney disease stage 2 808089748 Active 2023 Judie Camacho MD [address] [facility] [address], [place], [address], [facility] 4 21:28:20 Problem Notes None recorded. Procedures Surgical History Date Name Laterality Status Provider Name and Address Organization Details Recorded Time laminotomy completed YANG SWEET [address] [facility], [facility] [address], [place], [address], [facility] 01/06/2020 09:27:06 Imaging Results None recorded. Procedure Notes None recorded. Medical Equipment None Reported. Allergies Allergen ID Allergen Name Allergen Category Reaction Reaction Severity Criticality Documentation Date Start Date Code Code System Note Provider Name and Address Organization Details Recorded Time 13787 Product containin g penicilli n and antibioti c (product) medicatio n rash Not available Not available 01/06/2020 51570 05 SNOMED Not Available Not Available Not [...] mm[Hg] 80 mm[Hg] MARIE TORRES NP [address], [address], [place], [address], [facility] 4 11:25:47 Date Recorded Body height Body mass index (BMI) Body weight Heart rate Respiratory rate Body temperature Oxygen saturation Oxygen saturation in Arterial blood by Pulse oximetry Systolic blood pressure Diastolic blood pressure Provider Name and Address Organization Details Last Updated DateTime 5 198.12 cm 22.4 kg/m2 90802.9 2 g 80 /min 18 /min 97.6 [degF] 97 % 97 % 108 mm[Hg] 74 mm[Hg] Sonja Gibbs NP [address], [address], [place], [address], [facility] 5 00:12:43 Date Recorded Body height Body mass index (BMI) Body weight Heart rate Respiratory rate Body temperature Oxygen saturation Oxygen saturation in Arterial blood by Pulse oximetry Systolic blood pressure Diastolic blood pressure Provider Name and Address Organization Details Last Updated DateTime 5 198.12 cm 22.4 kg/m2 75489.9 2 g 62 /min 18 /min 97.6 [degF] 97 % 97 % 117 mm[Hg] 82 mm[Hg] Sonja Gibbs NP [address] , [facility] [address], [place], [address], [facility] 5 14:18:18 Date Recorded Body height Body weight Body mass index (BMI) Heart rate Respiratory rate Body temperature Oxygen saturation Oxygen saturation in Arterial blood by Pulse oximetry Systolic blood pressure Diastolic blood pressure Provider Name and Address Organization Details Last Updated DateTime 5 198.12 cm 69108.1 8 g 21.5 kg/m2 78 /min 18 /min 98.6 [degF] 97 % 97 % 131 mm[Hg] 74 mm[Hg] Sonja Gibbs NP [address] , [facility] [address], [place], [address], [facility] 5 08:04:57 Date Recorded Body height Body mass index (BMI) Body weight Heart rate Respiratory rate Body temperature Oxygen saturation Oxygen saturation in Arterial blood by Pulse oximetry Systolic blood pressure Diastolic blood pressure Provider Name and Address Organization Details Last Updated DateTime 5 198.12 cm 21.5 kg/m2 76062.1 8 g 78 /min 18 /min 98.6 [degF] 97 % 97 % 114 mm[Hg] 74 mm[Hg] Sonja Gibbs NP [address] , [facility] [address], [place], [address], [facility] 5 09:06:17 Social History Question Answer Notes LastModified by Organizat ion Details LastModified Time Tobacco Smoking Status Former Smoker Sonja Gibbs, DIAMOND [address] [facility], [address], [place], [address], [facility] 02/14/2023 10:11:47 Do You Have An Advance Directive? Yes FULL CODE No Dialysis And Okay To Use Nutrition-us e Hydration Information not available 02/14/2023 What Is Your Level Of Alcohol Consumption? Occasional Information not available 02/14/2023 How Much Tobacco Do You Chew? None [id number] Information not available 05/02/2020 What Is Your Code Status? Full Code Information not available 02/14/2023 Do You Or Have You Ever Used E-cigarettes Or Vape? Never Used Electronic Cigarettes [id number] Information not available 05/02/2020 Where Do You Live? Apartment Elevator Information not available 02/19/2023 Legal Guardian? No Informati on not available 02/14/2023 Do You Have A Medical Power Of Manager Scientific? Yes [id number] Information not available 05/02/2020 What Was The [...] Used Smokeless Tobacco? Never Used Smokeless Tobacco [id number] Information not available 05/02/2020 Do You Use Any Illicit Or Recreational Drugs? No Information not available 02/14/2023 Has Tobacco Cessation Counseling Been Provided? No N/a As Pt. No Longer Smokes Information not available 02/19/2023 How Many Years Have You Smoked Tobacco? 40 [id number] Information not available 05/02/2020 Do You Have [...] Influenza, adjuvanted, quadrivalent, PF 2 [facility] 09:57:53 Influenza, adjuvanted, quadrivalent, PF 3 [facility]2023 11:45:01 pneumococcal polysaccharide PPV23 8 completed Sade [facility] 05/07/2024 15:50:52 influenza, unspecified formulation 4 completed Sade [facility] 05/07/2024 15:51:08 SARS-COV-2 (COVID-19) vaccine, UNSPECIFIED 1 completed Sade [facility] 05/07/2024 15:51:23 SARS-COV-2 (COVID-19) vaccine, UNSPECIFIED 1 completed Sade [facility] 05/07/2024 15:51:30 SARS-COV-2 (COVID-19) vaccine, UNSPECIFIED 3 completed Sade [facility] 05/07/2024 15:51:38 Past Encounters Encounter ID Performer Location Encounter Start Date Encounter Closed Date Diagnosis/Indication Diagnosis SNOMED-CT Code Diagnosis ICD10 Code Diagnosis Note [id number] YANG SWEET [address] [address] 01/06/2020 09:16:35 01/10/2020 16:25:01 Spinal stenosis of lumbar region 80377524 M48.062 s/p L4-5 decompress ion 01/03/20 by [...] 10 days-appt already set up Diabetes mellitus 329977 09 E11.9 trulicity 1.5 mg q week on sundays lantus 45 units qd SSI januvia 100 mg qd monitor A1c monitor for s/s of hypo/hyper glycemia Essential hypertension 87976992 I10 amlodipine 5 mg qd benazepril 20 mg q hs and 40 mg q am HCTZ 50 mg qd monitor b/p and labs Hypercholesterolemia 136 64627 E78.2 atorvastat in 20 mg qd fenofibrat e 145 mg qd monitor labs Insomnia 546676889 G47.0 9 was on trazodone 50 mg [...] pt monitor mood Vitamin D deficiency 347 59627 E56.8 vitamin D3 1000 iu qd monitor levels [id number] Estefany Curtis MD [address] [address] 01/07/2020 07:31:48 01/10/2020 16:31:47 Depressive disorder 38124488 F32.89 sertraline 50 mg dailywill monitor Diabetes mellitus 285531 09 E11.9 Humalog per sliding scaleJanuv ia 100 mg dailyLantu s 45 mg at hsmetformi n 1000 mg bidTrulici ty 1.5 mg weeklywill monitor Essential hypertension 75511314 I10 amlodipine 5 mg dailybenaz epril 40 mg dailyHCTZ 50 mg dailywill monitor Hypercholesterolemia 136 95358 E78.00 atorvastat in 20 mg dailyfenof ibrate 145 mg dailywill monitor Spinal mg nosis of lumbar region 02145949 M48.061 s/p recent decompress ion L4-5 cyclobenza tutu 10 mg tidnortrip tyline 25 mg bid diclofenac 75 mg bidgabapen tin 300 mg bid and 600 mg at hsoxycodon e 5-10 mg q4h prnfu neurosurge ryPT/OT [id number] PALAK BECKER, DIAMOND [facility] [address] [address] 01/11/2020 08:12:58 01/14/2020 14:03:39 Depressive disorder 75537074 F32.9 sertraline 50 mg daily will monitor Spinal mg nosis of lumbar region 58495237 M48.061 cyclobenza tutu 10 mg tid nortriptyl ine 25 mg bid diclofenac 75 mg bid gabapentin 300 mg bid and 600 mg at hs oxycodone 5-10 mg q4h prn fu neurosurge ry PT/OT [id number] PALAK BECKER IT[employer] LECT[employer] [facility] [address] [address] 01/14/2020 07:57:00 01/18/2020 09:07:39 Depressive disorder 25174452 F32.9 sertraline 50 mg daily will monitor Diabetes mellitus 268817 09 E11.9 monitor poc glucose Humalog per sliding scaleJanuv ia 100 mg daily Lantus 45 mg at hs metformin 1000 mg bid Trulicity 1.5 mg weekly will monitor Essential hypertension 72524345 I10 amlodipine 5 mg dailybenaz epril 40 mg daily HCTZ 50 mg daily will monitor Hypercholesterolemia 136 09214 E78.00 atorvastat in 20 mg daily fenofibrat e 145 mg daily will monitor Spinal mg nosis of lumbar region 82994077 M48.061 cyclobenza tutu 10 mg tid nortriptyl ine 25 mg bid diclofenac 75 mg bid gabapentin 300 mg bid and 600 mg at hs oxycodone 5-10 mg q4h prn fu neurosurge ry PT/OT [id number] YANG SWEET [facility] [address] 01/17/2020 08:06:37 01/25/2020 11:54:15 Spinal stenosis of lumbar region 48234099 M48.062 s/p L4-5 decompress ion 01/03/20 by Tana diclofenac on 01/08/20-75 mg bid oxycodone 5-10 mg q 4 hrs prn cyclobenza tutu 10 mg tid neurontin 300 mg bid and 600 mg q hs follow up with surgeon on 02/15/20 and as needed Diabetes mellitus 191563 09 E11.9 trulicity 1.5 mg q week on sundays lantus 45 units qd januvia 100 mg qd follow up with PCP Essential hypertension 55258327 I10 amlodipine 5 mg qd benazepril 40 mg q am HCTZ 50 mg qd follow up with PCP Hypercholesterolemia 136 27894 E78.2 atorvastat in 20 mg qd fenofibrat e 145 mg qd follow up with PCP Insomnia 792432902 G47.0 9 follow up with PCP Depressive disorder 3548 9007 F32.89 zoloft 50 mg qd nortriptyl ine 25 mg q 12 hrs follow up with PCP Vitamin D deficiency 347 68304 E56.8 vitamin D3 1000 iu qd follow up with PCP [id number] Sonja Gibbs NP [address] [address] 02/14/2023 08:55:37 02/19/2023 09:34:58 Spinal stenosis of lumbar region 66142591 M48.062 s/p L4-5 decompress ion 01/03/20 by Roel knee surgery oxycodonec yclobenzap rine 10 mg bedtime prnmonitor pain Diabetes mellitus 532687 09 E11.9 cont home regimentru licity 1.5 sc at 0900 on iba 55 units sc bedtimemet formin 500 mg er bidjardian ce 25 mg qdvascepa 2 g po bidmonitor bs bid x 3 days and reeval Essential hypertension 78456228 I10 hydralazin e 10 mg po tidbenazep ril 40 mg q am (per dc instructio ns and pt on both)lisin opril 20 mg po daily (per dc instructio ns and pt on both)furos emide 20 mg po dailymonit or bp, hr Hypercholesterolemia 136 47726 E78.2 atorvastat in 20 mg qdfenofibr ate 145 mg qd Insomnia 379772128 G47.0 9 follow up with PCP Depressive disorder 4208 9007 F32.89 lorazepam 1 mg po bidmonitor for anxiety Vitamin D deficiency 347 06068 E56.8 vitamin D3 1000 iu qd Acute pain of joint of knee 8829169000 94536 M25.569 sp post op 02/11/23 total knee [...] stregth, gait trainingcb c bmp weekly Constipation 12532355 K5 9.00 post op constipati oncont docusate 100 mg po bid*start milk of magnesia 30 cc po today and q 24 hours prn constipati on [id number] Judie Camacho MD [address] [address] 02/18/2023 19:53:10 02/20/2023 08:52:13 Spinal stenosis of lumbar region 18703516 M48.062 With chronic back pain. Uses oxycodone 5 mg TID at baseline and cyclobenza tutu 10 mg qhs prnPT/OT as above.Tabitha tor pain Diabetes mellitus 254128 09 E11.9 Last HgA1C was 7.9 on 01/31/23, BS have been good since hereReport ed[place] doesn't use all his meds regularly due to cost.Vasu nue trulicity 1.5 weekly, tresiba 55 U qd, metformin 500 mg BID, and jardiance 25 mg qdMonitor fingerstic ks BID and HgA1C as outpt. Essential hypertension 42627029 I10 BP in good control.Co ntinue hydralazin e 10 mg TID, benazepril 40 mg qd, lisinopril 20 mg qd and furosemide 20 mg qd.Monitor BP and labsUnclea r why pt is on 2 SHANNON inhibitors , but will leave for PCP to manage. Vitamin D deficiency 347 79173 E56.8 Continue vitamin D3 1000 IU qdMonitor as outpt. Constipation 51546713 K5 9.09 Will add miralax 17 gms qd and continue docusate 100 mg BID and MOM prn.Monito r bowel function Osteoarthr itis of knee 647565441 M17.12 Z96.652 Recovering slowly after LTKR.Vasu nue [...] f/u Chronic ki dney disease stage 1 405427137 N18.1 At baseline.C ontinue to avoid nephrotoxi c meds as able.Monit or labs.Renal consult prn. Hyperlipidemia 14110302 E78.49 E78.1 Last lipids in system from 02/2021, trig were still high, but TC and HDL ok.Continu e atorvastat in 20 mg qd, fenofibrat e 145 mg qd and vascepa 2 g BID.Will get lipid profile while here, then f/u with PCP as outpt. Mixed anxi ety and depressive disorder 685989892 F41.8 Per pt. was still on sertraline , but per inpt notes, not filled at either [facility] or [facility] recently.C ontinue lorazepam 1 mg BID.monito r for anxiety [id number] Sonja Gibbs NP [facility] [place] [address] 02/21/2023 10:00:03 02/25/2023 10:32:50 Osteoarthritis of knee 026838294 M17.12 Z96.652 LTKR originally done on ontinu [...] with ortho on 02/[address] Juana cruz aquacel dressing in place until f/u Spinal mg nosis of lumbar region 06564667 M48.062 With chronic back pain.oxyco done 5 mg TID at baseline and cyclobenza tutu 10 mg qhs prn at baseline, now see above osteoarthr itis of knee for new pain regimenPT/ OT as above.Tabitha tor pain Diabetes mellitus 982659 09 E11.9 Last HgA1C was 7.9 on 01/31/23, BS have been good since hereContin uetrulicit y 1.5 weeklytres iba 55 U qdmetformi n 500 mg BID,jardia nce 25 mg qdMonitor fingerstic ks BID and HgA1C as outpt. Essential hypertension 11849779 I10 BP in good control. slightly high likely due to painContin uehydralaz ine 10 mg TIDbenazep ril 40 mg qdlisinopr il 20 mg qdfurosemi de 20 mg qd.Monitor BP and labsUnclea r why pt is on 2 SHANNON inhibitors , but will leave for PCP to manage. (pt on this regimen for many years and reports it works) Hyperlipidemia 60782218 E78.49 E78.1 Last lipids in system from 02/2021, trig were still high, but TC and HDL ok.Continu eatorvasta tin 20 mg qdfenofibr ate 145 mg qdvascepa 2 g BID.lipid profile pendingf/u with PCP as outpt. Mixed anxi ety and depressive disorder 779965894 F41.8 Per pt. was still on sertraline , but per inpt notes, not filled at either [facility] or [facility] recently.C ontinuelor azepam 1 mg BID.monito r for anxiety Vitamin D deficiency 347 75880 E56.8 Continuevi tamin D3 1000 IU qdMonitor as outpt. Constipation 88157598 K5 9.09 with hard stools per report latelymira lax 17 gms qddocusate 100 mg BIDMOM prn.Monito r bowel function Chronic ki dney disease stage 1 139281580 N18.1 At baseline.C ontinue to avoid nephrotoxi c meds as able.Monit or labs.Renal consult prn. [id number] Sonja Gibbs NP [address] [address] 02/24/2023 08:59:01 02/28/2023 10:19:51 Osteoarthritis of knee 210504458 M17.12 Z96.652 LTKR originally done on inc [...] ortho on 02/[address] Juana Apple ([facility] to check into this appt with office as pt states his cheng states it is for PT)Keep aquacel dressing in place until f/u Diabetes mellitus 187355 09 E11.9 Last HgA1C was 7.9 on 01/31/23, BS have been good since hereContin uetrulicit y 1.5 weeklytres iba 55 U qdmetformi n 500 mg BID,jardia nce 25 mg qdMonitor fingerstic ks BID and HgA1C as outpt. Spinal mg nosis of lumbar region 28343954 M48.062 With chronic back pain.oxyco done 5 mg TID at baseline and cyclobenza tutu 10 mg qhs prn at baseline, now see above osteoarthr itis of knee for new pain regimenPT/ OT as above.Tabitha tor pain Essential hypertension 19073102 I10 BP slightly high likely due to painContin uehydralaz ine 10 mg TIDbenazep ril 40 mg qdlisinopr il 20 mg qdfurosemi de 20 mg qd.Monitor BP and labsUnclea r why pt is on 2 SHANNON inhibitors , but will leave for PCP to manage. (pt on this regimen for many years and reports it works) Hyperlipidemia 61390735 E78.49 E78.1 Last lipids in system from 02/2021, trig were still high, but TC and HDL ok.Continu eatorvasta tin 20 mg qdfenofibr ate 145 mg qdvascepa 2 g BID.lipid profile pendingf/u with PCP as outpt. Mixed anxi ety and depressive disorder 118871501 F41.8 Per pt. was still on sertraline , but per inpt notes, not filled at either [facility] or [facility] recently.C ontinuelor azepam 1 mg BID.monito r for anxiety Vitamin D deficiency 347 66021 E56.8 Continuevi tamin D3 1000 IU qdMonitor as outpt. Constipation 69543388 K5 9.09 with hard stools per report latelyincr ease miralax 17 gms qd to bidcont docusate 100 mg BIDMOM prn. q 24 hours if hard stools or no bmMonitor bowel function Chronic ki dney disease stage 1 352297168 N18.1 At baseline.C ontinue to avoid nephrotoxi c meds as able.Monit or labs.Renal consult prn. [id number] Sonja Gibbs NP [address] [address] 02/28/2023 08:24:09 03/03/2023 11:01:20 Osteoarthritis of knee 701682589 M17.12 Z96.652 LTKR originally done on oxy [...] and make 2 week appt today Constipation 85872848 K5 9.09 resolvingc ontmiralax 17 gms qd to biddocusat e 100 mg BIDMOM prn. q 24 hours if hard stools or no bmMonitor bowel function Diabetes mellitus 756349 09 E11.9 Last HgA1C was 7.9 on 01/31/23, BS have been good since hereContin uetrulicit y 1.5 weeklytres iba 55 U qdmetformi n 500 mg BID,jardia nce 25 mg qdMonitor fingerstic ks BID and HgA1C as outpt. Spinal mg nosis of lumbar region 84309847 M48.062 With chronic back pain.oxyco done 5 mg TID at baseline and cyclobenza tutu 10 mg qhs prn at baseline, now see above osteoarthr itis of knee for new pain regimenPT/ OT as above.Tabitha tor pain Essential hypertension 05178572 I10 BP slightly high likely due to pain, will monitor closelyCon tinuehydra lazine 10 mg TIDbenazep ril 40 mg qdlisinopr il 20 mg qdfurosemi de 20 mg qd.Monitor BP and labsUnclea r why pt is on 2 SHANNON inhibitors , but will leave for PCP to manage. (pt on this regimen for many years and reports it works) Hyperlipidemia 47301241 E78.49 E78.1 Last lipids in system from 02/2021, trig were still high, but TC and HDL ok.Continu eatorvasta tin 20 mg qdfenofibr ate 145 mg qdvascepa 2 g BID.lipid profile pendingf/u with PCP as outpt. Mixed anxi ety and depressive disorder 276003936 F41.8 Per pt. was still on sertraline , but per inpt notes, not filled at either [facility] or [facility] recently.C ontinuelor azepam 1 mg BID.monito r for anxiety Vitamin D deficiency 347 53526 E56.8 Continuevi tamin D3 1000 IU qdMonitor as outpt. Chronic ki dney disease stage 1 956343964 N18.1 At baseline.C ontinue to avoid nephrotoxi c meds as able.Monit or labs.Renal consult prn. [id number] Sonja Gibbs NP [address] [address] 03/03/2023 08:59:22 03/05/2023 08:05:09 Osteoarthritis of knee 454671631 M17.12 Z96.652 LTKR originally done on oxy [...] and make fu appt-still no note Constipation 14873875 K5 9.09 better on this regimencon tmiralax 17 gms qd to biddocusat e 100 mg BIDMOM prn. q 24 hours if hard stools or no bmMonitor bowel function Diabetes mellitus 239767 09 E11.9 Last HgA1C was 7.9 on 01/31/23, BS have been good since hereContin uetrulicit y 1.5 weeklytres iba 55 U qdmetformi n 500 mg BID,jardia nce 25 mg qdMonitor fingerstic ks BID and HgA1C as outpt. Spinal mg nosis of lumbar region 08665957 M48.062 With chronic back pain.oxyco done 5 mg TID at baseline and cyclobenza tutu 10 mg qhs prn at baseline, now see above with osteoarthr itis of knee for new pain regimenPT/ OT as above.Tabitha tor pain Essential hypertension 87983817 I10 BP slightly high likely due to pain now improving, will monitor closely 130s/70sCo ntinuehydr alazine 10 mg TIDbenazep ril 40 mg qdlisinopr il 20 mg qdfurosemi de 20 mg qd.Monitor BP and labsUnclea r why pt is on 2 SHANNON inhibitors , but will leave for PCP to manage. (pt on this regimen for many years and reports it works) Hyperlipidemia 39038202 E78.49 E78.1 Last lipids in system from 02/2021, trig were still high, but TC and HDL ok.Continu eatorvasta tin 20 mg qdfenofibr ate 145 mg qdvascepa 2 g BID.lipid profile pendingf/u with PCP as outpt. Mixed anxi ety and depressive disorder 472200401 F41.8 Per pt. was still on sertraline , but per inpt notes, not filled at either [facility] or [facility] recently.C ontinuelor azepam 1 mg BID.monito r for anxiety Chronic ki dney disease stage 1 169175049 N18.1 At baseline.C ontinue to avoid nephrotoxi c meds as able.Monit or labs.Renal consult prn. Edema of l ower extremity 811087861 R60.0 nsg and pt state bilateral feet swelling, now better this am after feet up all night, likely dependent as he is up more throughout the day 03/03 start compressio n stockings on in am off in pmmonitor [id number] Sonja Gibbs NP [address] [address] [place] [address] 03/06/2023 11:01:35 03/11/2023 09:41:09 Osteoarthritis of knee 863190889 M17.12 Z96.652 LTKR originally done on 02/11oxycodo [...] ortho on 02/[address] Juana Apple ([facility] to check into this appt with office as pt states his cheng states it is for PT)fu with ortho and pcp outpt and PT services amended orderpt has pain and oxycodone not availablet ramadol 100 mg po q 6 hours prn x 24 hoursmonit or Constipation 89841878 K5 9.09 miralax 17 gms qd to bid, titrate as neededdocu sate 100 mg BIDMOM prn. q 24 hours if hard stools or no bmMonitor bowel function outpt with vna pcp Diabetes mellitus 619094 09 E11.9 Last HgA1C was 7.9 on 01/31/23, BS have been good since heretrulic ity 1.5 weeklytres iba 55 U qdmetformi n 500 mg BID,jardia nce 25 mg qdMonitor fingerstic ks BID and HgA1C as outpt.foll ow with pcp outpt Spinal mg nosis of lumbar region 66143534 M48.062 With chronic back pain.oxyco done 5 mg TID at baseline(s ee increased regimen above osteoarthr itis please ) and cyclobenza tutu 10 mg qhs prn at baselinePT /OT as above.Tabitha tor pain outpt with pcp Essential hypertension 63179499 I10 BP slightly high likely due to painContin uehydralaz ine 10 mg TIDbenazep ril 40 mg qdlisinopr il 20 mg qdfurosemi de 20 mg qd.Monitor BP and labsUnclea r why pt is on 2 SHANNON inhibitors , but will leave for PCP to manage outpt. (pt on this regimen for many years and reports it works) Hyperlipidemia 41115779 E78.49 E78.1 Last lipids in system from 02/2021, trig were still high, but TC and HDL ok.Continu eatorvasta tin 20 mg qdfenofibr ate 145 mg qdvascepa 2 g BID.lipid profile pendingf/u with PCP as outpt. Mixed anxi ety and depressive disorder [id number] F41.8 Per pt. was still on sertraline , but per inpt notes, not filled at either [facility] or [facility] recently.C ontinuelor azepam 1 mg BID.monito r for anxiety outpt with pcp Vitamin D deficiency 347 08576 E56.8 Continuevi tamin D3 1000 IU qdMonitor as outpt with pcp Chronic ki dney disease stage 1 998294618 N18.1 At baseline.C ontinue to avoid nephrotoxi c meds as able.Monit or labs.Renal consult prn outpt Hypercholesterolemia 136 33251 E78.2 atorvastat in 20 mg qdfenofibr ate 145 mg qdfu with pcp outpt Insomnia 576842826 G47.0 9 follow up with PCP outpt [id number] [facility] [address] 05/07/2024 18:25:29 05/10/2024 08:52:32 Chronic diastolic heart failure 618165202 I50.32 Pt says he never had any [...] labs. Spinal mg nosis of lumbar region 45386356 M48.062 With chronic back pain. Uses oxycodone 10 mg QID at baseline (checked in [facility]).W ritten for 5 mg QID at hospital, will change back to baseline dose.Very deconditio amaury.Needs PT/OT for strengthen ing, balance, gait training, safety and function.C ontinue fall precaution s.Monitor for safety.Mon itor pain controlCel ebrex on hold. Hypercholesterolemia 136 86816 E78.2 Continue atorvastat in 20 mg qd, fenofibrat e 145 mg qd, vascepa 2 g BID, and ASA 81 mg qd.Monitor labs as outpt. Essential hypertension 09367426 I10 SBP a little high yesterday, not checked todayConti nue meds as above and amlodipine 2.5 mg qd.Monitor BP and labsDaily BPs ordered. Diabetes mellitus 677130 09 E11.9 Last HgA1C was 7.9 in 11/2023.Fol lowed by endocrine [place] [facility]Contin ue trulicity 1.5 weekly, tresiba 35 U qd, metformin 500 mg BID, januvia 25 mg qd, and SSITresiba not yet delivered, ok to use Lantus instead tonight.Mo nitor fingerstic ks TID and HgA1C as outpt. Depressive disorder 3548 9007 F32.89 In hx.On no meds.Monit or mood.Psych consult prn. Chronic ki dney disease stage 2 285606838 N18.2 At baseline.C ontinue to avoid nephrotoxi c meds as able.Monit or labs.Renal consult prn. Benign pro static hyperplasia without outflow obstruction 390464341 N40.0 In hx, with some issues with retention at times.Cont inue tamsulosin 0.4 mg qd. [id number] MARIE TORRES NP [address] [address] 05/13/2024 13:47:03 05/14/2024 10:52:03 Chronic diastolic heart failure 634280742 I50.32 Pt says he never had any [...] 3 Spinal mg nosis of lumbar region 48097231 M48.062 With chronic back pain. [facility]W ritten for 5 mg QID at hospital, will change back to baseline dose.Very deconditio amaury.Needs PT/OT for strengthen ing, balance, gait training, safety and function.C ontinue fall precaution s.Monitor for safety.Mon itor pain controlCel ebrex on hold. Diabetes mellitus 723345 09 E11.9 Last HgA1C was 7.9 in 11/2023.Fol lowed by endocrine at [facility]Contin ue trulicity 1.5 weekly, tresiba 35 U qd, metformin 500 mg BID, januvia 25 mg qd, and SSITresiba not yet delivered, ok to use Lantus instead tonight.Mo nitor fingerstic ks TID and HgA1C as outpt. Essential hypertension 53827677 I10 SBP a little high yesterday, not checked todayConti nue meds as above and amlodipine 2.5 mg qd.Monitor BP and labsDaily BPs ordered. Chronic ki dney disease stage 2 080462217 N18.2 At baseline.C ontinue to avoid nephrotoxi c meds as able.Monit or labs.Renal consult prn. Hypercholesterolemia 136 40935 E78.2 Continue atorvastat in 20 mg qd, fenofibrat e 145 mg qd, vascepa 2 g BID, and ASA 81 mg qd.Monitor labs as outpt. Depressive disorder 5814 9007 F32.89 In hx.On no meds.Monit or mood.Psych consult prn. Benign pro static hyperplasia without outflow obstruction 531193276 N40.0 In hx, with some issues with retention at times.Cont inue tamsulosin 0.4 mg qd. Pain in right arm 549774 004 M79.601 New onset, x 2-3d. Denies trauma or injury.Exa m limited due to painPMR assessed as well.Plan -Check x rays and venous USOxycodon e already available for pain.Monit or closely. [id number] Sonja Gibbs [facility] [address] [facility] [facility] [address] 05/14/2024 11:54:20 05/17/2024 11:03:10 Chronic diastolic heart failure 199076001 I50.32 Pt's main c/o was and continues [...] today Spinal mg nosis of lumbar region 48854783 M48.062 With chronic back pain. hx of oxycodone 10 mg QID at baseline ([employer] [facility] and changed to baseline dose as hosp decreased it to 5mg QID prnVery deconditio amaury.Needs PT/OT for strengthen ing, balance, gait training, safety and function.C ontinue fall precaution s.Monitor for safety.Mon itor pain controlCel ebrex on hold. Diabetes mellitus 251513 09 E11.9 BS 127 today and stable, [facility] HgA[facility]C was 7.9 in 11/2023.[place] 1.[place] weekly, tresiba 35 U qd, metformin 500 mg BID, januvia 25 mg qd, and SSIMonitor fingerstic ks TID and HgA1C as outpt. Essential hypertension 54173705 I10 bp stable 128/72 todayConti nue meds as above and amlodipine 2.5 mg qd.Monitor BP and labsDaily BPs ordered. Chronic ki dney disease stage 2 963704876 N18.2 At baseline.C ontinue to avoid nephrotoxi c meds as able.Monit or labs.Renal consult prn. Hypercholesterolemia 136 01286 E78.2 Continueat orvastatin 20 mg qd, fenofibrat e 145 mg qd, vascepa 2 g BID, and ASA 81 mg qd.Monitor labs as outpt. Depressive disorder 3548 9007 F32.89 In hx.On no meds.Monit or mood.Psych consult prn. Benign pro static hyperplasia without outflow obstruction 168660376 N40.0 In hx, with some issues with retention at times.Cont inuetamsul osin 0.4 mg qd. Pain in right arm 761758 004 M79.601 New onset, x 2-3d. Denies trauma or injury. feels it is improvingx rays and venous US to right arm negative for acute findingsOx ycodone for pain.05/14 seen by physiatry on 05/13 rec: tyl 1000 mg po tid and lidocaine patch, will agree and order todayMonit or closely. Dizziness 672427350 R42 pt reports dizziness today directly related to the room being hot05/14 requests to move room, decrease heat or leave facility, nursing aware and heat reduced, vitals and BS stablemoni tor closely for improvemen t or changes Tinea pedis 2550175 B35. 3 clotrimazo le 1 % cream bid x 10 daysmonito r [id number] Sonja Gibbs, [facility] [address] [address] 05/20/2024 07:43:04 05/21/2024 11:07:38 Pain in right arm 513104153 M79.601 New onset, x 2-3d. Denies trauma or injury. feels it is improvingx rays and venous US to right arm negative for acute findingsOx ycodone for pain.physi atry rec tyl 1000 mg po tid and lidocaine patch which is helping but remains with pain. will reconsult1 07/20 will increase cyclobenza tutu to bid todayMonit or closely. Tinea pedis 8468560 B35. 3 improving slightlycl otrimazole 1 % cream bid x 10 daysmonito r Chronic di astolic heart failure 974030138 I50.32 Pt's main c/o was and continues [...] x1 Spinal mg nosis of lumbar region 01235818 M48.062 With chronic back pain. hx of oxycodone 10 mg QID at baseline ([employer] checked in [facility] home dose).cont PT/OT for strengthen ing, balance, gait training, safety and function.C ontinue fall precaution s.Monitor for safety.Mon itor pain controlCel ebrex on hold. Diabetes mellitus 628802 09 E11.9 BS 102-182 stable, [facility] HgA1C was 7.9 in 11/2023.[facility] 1.5 weekly, tresiba 35 U qd, metformin 500 mg BID, januvia 25 mg qd, and SSIMonitor fingerstic ks TID and HgA1C as outpt. Essential hypertension 41916078 I10 bp stable 126/69 todayConti nue meds as above and amlodipine 2.5 mg qd.Monitor BP and labsDaily BPs ordered. Chronic ki dney disease stage 2 580210528 N18.2 At baseline.C ontinue to avoid nephrotoxi c meds as able.Monit or labs.Renal consult prn. Hypercholesterolemia 136 07061 E78.2 Continueat orvastatin 20 mg qd, fenofibrat e 145 mg qd, vascepa 2 g BID, and ASA 81 mg qd.Monitor labs as outpt. Depressive disorder 3548 9007 F32.89 In hx.On no meds.Monit or mood.Psych consult prn. Benign pro static hyperplasia without outflow obstruction 452323855 N40.0 In hx, with some issues with retention at times.Cont inuetamsul osin 0.4 mg qd. [id number] Sonja Gibbs NP [facility] [place] [address] 05/27/2024 13:47:02 05/28/2024 10:07:06 Pain in right arm 303249614 M79.601 Denies trauma or injury. feels it is improving. refuses additional meds for pain todayx rays and venous US to right arm negative for acute findingsOx ycodone for pain.physi atry rec tyl 1000 mg po tid and lidocaine patch which is helpingcyc lobenzapri ne to bid todayMonit or closely. Tinea pedis 6419250 B35. 3 improvingc lotrimazol e 1 % cream bid x 10 days to completemo nitor Chronic di astolic heart failure 334465806 I50.32 Pt's main c/o was and continues [...] above Spinal mg nosis of lumbar region 64210699 M48.062 With chronic back pain. hx of oxycodone 10 mg QID at baseline, will cont([employer] checked in [facility] home dose).cont PT/OT for strengthen ing, balance, gait training, safety and function.C ontinue fall precaution s.Monitor for safety.Mon itor pain controlCel ebrex remains on hold. Diabetes mellitus 061524 09 E11.9 BS 100s-occ 200s stable, [facility] outptLast HgA1C was 7.9 in 11/2023.[place] 1.5 weekly, tresiba 35 U qd, metformin 500 mg BID, januvia 25 mg qd, and SSIMonitor fingerstic ks TID and HgA1C as outpt. Essential hypertension 52520256 I10 bp stableCont inue meds as above and amlodipine 2.5 mg qd.Monitor BP and labs Chronic ki dney disease stage 2 947041512 N18.2 At baseline.C ontinue to avoid nephrotoxi c meds as able.Monit or labs.Renal consult prn. Hypercholesterolemia 136 75077 E78.2 Continueat orvastatin 20 mg qd, fenofibrat e 145 mg qd, vascepa 2 g BID, and ASA 81 mg qd.Monitor labs as outpt. Depressive disorder 3549 9007 F32.89 a little down today, wishes his progress was futher, but reports okayOn no meds.Monit or mood.Psych consult prn. Benign pro static hyperplasia without outflow obstruction 384617423 N40.0 In hx, with some issues with retention at times.Cont inuetamsul osin 0.4 mg qd. Asthenia 99519192 R53.1 remains with weakness to legs and armsPT/OT eval and treatmonit or [id number] Sonja Gibbs, [facility] [address] 05/31/2024 10:47:07 06/02/2024 08:35:29 Pain in right arm 425072037 M79.601 Denies trauma or injury. feels it is improving. refuses additional meds for pain today but requests the oxycodone 10 mg scheduled instead of prnx rays and venous US to right arm negative for acute qnhhdrhy85 /25 sched Oxycodone 10 mg po q 6 hours and dc prn doses for pain.physi atry rec tyl 1000 mg po tid and lidocaine patch which is helpingcyc lobenzapri ne bidMRI sched for 06/01 of back and hoping to get more info on status and diagnosisM onitor closely. Asthenia 56683916 R53.1 remains with weakness to legs and armsPT/OT eval and treatmonit or Depressive disorder 3548 9007 F32.89 a little down today, wishes his progress was futher, but reports okayOn no meds.Monit or mood.Psych consult prn. Chronic di astolic heart failure 741396297 I50.32 Pt's main c/o was and continues [...] stable Spinal mg nosis of lumbar region 08899368 M48.062 With chronic back pain. hx of oxycodone 10 mg QID at baseline, will cont([employer] checked in [facility] home dose). MRI sched for 06/01 of back and hoping to get more info on status and diagnosis contPT/OT for strengthen ing, balance, gait training, safety and function.C ontinue fall precaution s.Monitor for safety.Mon itor pain controlCel ebrex remains on hold. Diabetes mellitus 121612 09 E11.9 BS 100s-occ 200s stable, [facility] outptLast HgA1C was 7.9 in 11/2023.[place] 1.5 weekly, tresiba 35 U qd, metformin 500 mg BID, januvia 25 mg qd, and SSIMonitor fingerstic ks TID and HgA1C as outpt. Essential hypertension 92437663 I10 bp stableCont inue meds as above and amlodipine 2.5 mg qd.Monitor BP and labs Chronic ki dney disease stage 2 214745466 N18.2 At baseline.C ontinue to avoid nephrotoxi c meds as able.Monit or labs.Renal consult prn. [id number] Sonja Gibbs NP [facility] [address] [place] [address] 06/17/2024 08:35:00 06/18/2024 14:22:00 Spinal stenosis of lumbar region 75769144 M48.062 With chronic back pain. hx of [...] His pcp Dr Jacinto referred him to [facility] with appt 07/29/24 [...] remains on hold. Pain in right arm 877466 004 M79.601 Denies trauma or injury. feels it is improving. has decreased rom and lymphedema for some time nowcontphy siatry prn consultedc onttyl 1000 mg po tid and lidocaine patch which is helpingsch ed Oxycodone 10 mg po q 6 hours and dc prn doses for pain.cyclo benzaprine bidMRI sched for 06/01 of back results pending. nsg obtainingM onitor closely. Asthenia 34130934 R53.1 remains with weakness to left leg and right armPT/OT eval and treat prn, off regular therapymon itor Osteoarthr itis of knee 327953092 M17.12 Z96.652 LTKR originally done on 02/11remains [...] appleu/s of bilateral lower ext today on 12monit or Nausea and vomiting 1693 2000 R11.2 likely related to constipati onsee belowzofra n 4 mg po q 6 hours prn n/v x 30 days Constipation 22478105 K5 9.09 unclear why bowel meds decreased recently, now with 6 days of constipati onmiralax 17 gms prn qd, titrate as neededdocu sate 100 mg daily06/17 MOM [facility] give bisacodyl supp if no results in a few hoursMonit or bowel function outpt with vna pcp [id number] MARIE TORRES NP [facility] [address] [address] 06/22/2024 12:27:29 06/23/2024 09:31:59 Gastroesophageal reflux disease without esophagitis 076665208 K21.9 Using TUMS frequently for GERD/GI sx.Start pepcid 20 mg bidMonitor sx.If remain problemati c, consider trial of PPI [id number] Sonja Gibbs NP [facility] [address] [address] 06/23/2024 13:31:14 06/24/2024 12:10:49 Asthenia 38527432 R53.1 remains with weakness to left leg and right armPT/OT eval and treat prn, off regular therapymon itor Constipation 46839581 K5 9.09 unclear why bowel meds decreased recently, now with 2 days of constipati on and continues with this every couple of days give mom 30 cc and bisacodyl 10 pr supp nowcont miralax 17 gms prn daily(sche duled)cydney a plus 2 tabs dailydc docusateMo nitor bowel function Spinal mg nosis of lumbar region 87368053 M48.062 With chronic back pain. hx of [...] Apple 06/24 for right shoulder painalso 07/29/24 [facility] at 1 pm. contPT/OT for strengthen ing, balance, gait training, safety and function prnremains barrington lift at this timeContin ue fall precaution s.Monitor for safety.Mon itor pain controlCel ebrex remains on hold. Pain in right arm 719704 004 M79.601 Denies trauma or injury. feels it is improving. has decreased rom and lymphedema for some time nowcontphy siatry prn consultedc onttyl 1000 mg po tid and lidocaine patch which is helpingsch eduled Oxycodone 10 mg po q 6 hours and dc prn doses for pain.cyclo benzaprine bidMonitor closely.se e above for management Osteoarthr itis of knee 405012869 M17.12 Z96.652 LTKR originally done on 02/11remains [...] 06/17monit or Chronic di astolic heart failure 983848586 I50.32 Pt says he never had any [...] fluid status, wts and labs. Diabetes mellitus 047940 09 E11.9 Last HgA1C was 7.9 in 11/2023.Fol lowed by endocrine [place] [facility]Contin uetrulicit y 1.5 weekly, tresiba 35 U qd, metformin 500 mg BID, januvia 25 mg qd, and SSIMonitor fingerstic ks TID and HgA1C as outpt. Essential hypertension 06863350 I10 stable 133/82Cont inue meds as above and amlodipine 2.5 mg qd.Monitor BP and labsDaily BPs ordered. Depressive disorder 3548 9007 F32.89 In hx.On no meds.Monit or mood.Psych consult prn. Benign pro static hyperplasia without outflow obstruction 851737891 N40.0 In hx, with some issues with retention at times.Cont inuetamsul osin 0.4 mg qd. [id number] Sonja Gibbs NP [address] [address] 06/25/2024 10:45:21 06/28/2024 14:12:37 Asthenia 69649254 R53.1 remains with weakness to left leg and right arm06/25 right arm and left knee brace on in am and off in pm per dr anderson's ordersPT/O T eval and treat prn, off regular therapymon itor Spinal mg nosis of lumbar region 85905202 M48.062 With chronic back pain. hx of [...] and off in pmfu after MRI 07/29/24 [facility] at 1 pm sched from outside provider contPT/OT for strengthen ing, balance, gait training, safety and function prnremains barrington lift at this timeContin ue fall precaution s.Monitor for safety.Margareth mccullough pain controlCel ebrex remains on hold. Pain in right arm 080544 004 M79.601 Denies trauma or injury. feels [...] above for management Osteoarthr itis of knee 348674342 M17.12 Z96.652 LTKR originally done on 02/11remains [...] ext today on 06/17monit or Diabetes mellitus 938775 09 E11.9 Last HgA1C was 7.9 in 11/2023.Fol lowed by endocrine at [facility].with BS of 58 on 06/25 and similar on 06/23, remains asymptomat icContinue trulicity 1.5 weekly, metformin 500 mg BID, januvia 25 mg qd, and SSI06/25 decrease (degludec) tresiba 30 U qd to 26 unitsMonit or fingerstic ks TID and HgA1C as outpt. [id number] MARIE TORRES NP [address] [address] 07/01/2024 11:24:41 07/02/2024 11:53:48 Constipation 62407198 K59.09 Documented BM 06/24, 06/28Pt. states no BM x 6 days.Given MOM and supp last night, fleets this am with poor results so far.Aman tly no abd. pain, no N/V.BS hypoactive . Plan -KUB todayMag citrate 1/2 bottle this afternoon if no results from fleets, repeat 1/2 bottle tomorrow if still with poor results.En courage fluids, dietary fiber.Lane ge prn miralax to scheduled dailyTo ER if condition worsens [id number] Sonja Gibbs NP [facility] [address] [address] 07/14/2024 13:30:49 07/16/2024 10:19:43 Diabetes mellitus 16583000 E11.9 Last HgA1C was 7.9 in 11/2023.Fol lowed by endocrine at [facility].with BS of 44 on 07/15 and similar in past, remains asymptomat icContinue trulicity 1.5 weekly, metformin 500 mg BID, januvia 25 mg qd, and SSI1/8 decrease (degludec) tresiba 26 U qd to 20 unitsMonit or fingerstic ks TID and HgA1C as outpt.of note was on 35 units of insulin in recent past Asthenia 14931786 R53.1 remains with weakness to left leg and right arm12/20 right arm and left knee brace on in am and off in pm per dr anderson's ordersPT/O T eval and treat prn, off regular therapymon itor [id number] Sonja Gibbs NP [facility] [address] [address] 07/22/2024 14:17:32 07/23/2024 15:07:54 Constipation 48491685 K59.09 with regular bm per patient todayCurre ntly no abd. pain, no N/V.BS [id number] e fluids, dietary fiber.cont senna plus 2 tabs qdmiralax dailyhouse bowel protocol prn Diabetes mellitus 240217 09 E11.9 Last HgA1C was 7.9 in 11/2023.Fol lowed by endocrine at [facility] with multiple low BS in amContinue trulicity 1.5 weeklymetf ormin 500 mg BIDanuvia 25 mg qd, and SSI(deglud ec)tresiba 20 unitsMonit or fingerstic ks TID and HgA1C as outpt.(of note was on 35 units of insulin in recent past) Asthenia 07851508 R53.1 remains with weakness to left leg and right arm, and today with right leg weaknessri ght arm and left knee brace on in am and off in pm per dr anderson's ordersPT/O T eval and treat prn, off regular therapymargareth mccullough Spinal mg nosis of lumbar region 76976393 M48.062 With chronic back pain. hx of oxycodone 10 mg QID at baseline and cont with fair management here While here a right shoulder xray and U/S done for swelling to lower right fingers both came back without fracture, dislocatio n, or thrombus. He is followed outpt by vascular for his lymphedema . MRI lumbar spine back 06/01/24 ordered outpt by pcp anamaria-geraldo javiere 1 reltrolist hesis of L2 in relation [...] and off in pmfu after MRI sched // 5 [facility] at 1 pm sched from outside providerco ntPT/OT for strengthen ing, balance, gait training, safety and function prnremains barrington lift at this timeContin ue fall precaution s.Monitor for safety.Margareth mccullough pain controlCel ebrex remains on hold. Pain in right arm 273704 004 M79.601 Denies trauma or injury. feels [...] above for management Osteoarthr itis of knee 139321816 M17.12 Z96.652 LTKR originally done on 02/11remains [...] concernsmo nitor Chronic di astolic heart failure 807493099 I50.32 per hosp report of CHF.he never [...] fluid status, wts and labs. Essential hypertension 48145207 I10 stableCont inue meds as above and amlodipine 2.5 mg qd.Monitor BP and labsDaily BPs ordered. Depressive disorder 3548 9007 F32.89 In hx.On no meds.Monit or mood.Psych consult prn. Benign pro static hyperplasia without outflow obstruction 013547369 N40.0 In hx, with some issues with retention at times.Cont inuetamsul osin 0.4 mg qd. Gastroesop hageal reflux disease without esophagitis 079662628 K21.9 Using TUMS frequently for GERD/GI sx. resolvingc ontpepcid 20 mg bidMonitor sx.If remain problemati c, consider trial of PPI Nausea and vomiting 1692 1999 R11.2 resolvedse e belowzofra n 4 mg po q 6 hours prn n/v x 30 days Chronic ki dney disease stage 2 735139812 N18.2 At baseline.C ontinue to avoid nephrotoxi c meds as able.Monit or labs.Renal consult prn. Hypercholesterolemia 136 00218 E78.2 Continueat orvastatin 20 mg qdfenofibr ate 145 mg qdvascepa 2 g BID,ASA 81 mg qd.Monitor labs as outpt. [id number] Sonja Gibbs NP [address] [place] [address] 07/30/2024 08:03:45 08/03/2024 12:50:06 Spinal stenosis of lumbar region 59852766 M48.062 With chronic back pain and weakness reported since september or october 2023. hx of oxycodone 10 mg QID at baseline and cont with tolerable management here 05/13/24 U/S done for swelling to lower right fingers both came back without fracture, dislocatio n, or thrombus.Rich rios is followed outpt by vascular for [...] in pmfu after cervical MRI sched 07/3107/29/24 [facility] with rec:neuros urgery consult with Dr Serna 07/30 referral to [facility] ordered as recommende d, has MRI today. contPT/OT prn, currently not working with himrandal ferris lift at this timeContin ue fall precaution s.Monitor for safety.Mon itor pain controlCel ebrex remains on hold. Asthenia 81480551 R53.1 remains with weakness to left leg and right arm, and today with right leg weaknessri ght arm sling and left knee brace on in am and off in pm per dr anderson's ordersPT/O T eval and treat prn, off regular jean mccullough Pain in right arm 567553 004 M79.601 Denies trauma or injury. feels it is improving. has decreased rom and lymphedema for some time now prior to hospitaliz ationcontp hysiatry prn consultedt yl 1000 mg po tid and lidocaine patch which is helpingsch eduled Oxycodone 10 mg po q 6 hourscyclo benzaprine bid06/25 right arm sling on in am and off in pm per dr anderson's orders and MRI cervical spine as ordered by Elizabeth mccullough closely.se e above for management Osteoarthr itis of knee 427264001 M17.12 Z96.652 LTKR originally done on 02/11remains [...] lower ext neg for acute concernsmo nitor [id number] Sonja Gibbs NP [facility] [address] [address] 08/04/2024 09:05:47 08/06/2024 09:42:06 Spinal stenosis of lumbar region 28079467 M48.062 With chronic back pain and weakness reported since september or october 2023. 05/13/24 U/S done for swelling to lower right fingers both came back without fracture, dislocatio n, or thrombus.Rich rios is followed outpt by vascular for [...] off in pmfu after cervical MRI sched 07/31he was rec for minimally invasive spine center at [facility] appt 2/3 07/29/24 [facility] with rec:neuros urgery consult with Dr Serna 08/04 referral to [facility] ordered as recommende d with MRI results back today 08/04 from 07/30 07/30 MRI showing: severe spondylosi s of the cervical spine. Severe central canal stenosis with cord impingemen t, flattening , and increased cord signal at c4-5 and c5-6. myelomalac ia at these levels.mod central canal stenosis c3-4, and t1-t2 wtih ventral cord flattening , but no impingemen t.partial fusion of c6-7 disc space, without sig central canal stenosis with suspicion right lateral column of the cor suspicious for focus of myelomalac ia.multile carlos severe neural foraminal encroachem ent/stenos is. Obliterati on of the neural foramen present at c5-6, and near oblieratio n of c6-7.edema tous endplate changes present at multiple levels c4-5 and c5-6.large ventral projecting disc osteophyte s most ntobale c3-4, c4-5 and c5-6. mild prevertebr al edema secondary to ostephytes spanning the superior endplate of c3 to the superior endplate of c5.[facility] sent pt referral:rich rios was rec for minimally invasive spine center at [facility] appt 08/09 contPT/OT prn, currently not working with [facility] at this timeContin ue fall precaution s.Monitor for safety.Mon itor pain control see belowCeleb sandip remains on hold. Asthenia [id number] R53.1 remains with weakness to left leg and right arm, and today with right leg weaknessri ght arm sling and left knee brace on in am and off in pm per dr anderson's ordersPT/O T eval and treat prn, off regular therapymon itor Pain in right arm [id number] M79.601 Denies trauma or injury. feels it is improving. has decreased rom and lymphedema for some time now prior to hospitaliz ationcontp hysiatry prn consultedt yl 1000 mg po tid and lidocaine patch which is helpingsch eduled Oxycodone 10 mg po q 6 hourscyclo benzaprine bidright arm sling on in am and off in pm per dr anderson's orders and MRI cervical spine as ordered by ambika, as aboveMonit or closely.se e above for management Osteoarthr itis of knee [id number] M17.12 Z96.652 LTKR originally done on 02/11remains with decreased strength and rom to left knee/leg, barrington lift at this time08/04 start gabapentin 100 mg po bidContinu eoxycodone 10 mg qid for painceleco xib 200 mg BIDAPAP 650 mg TID and q 4 hrs prn (NTE 3000 mg/d),Cont inue fall precaution s.Monitor for safety.lef t knee brace on in am and off in pm per dr anderson's ordersu/s of bilateral lower ext neg for acute concernsmo nitor Diabetes mellitus [id number] E11.9 Last HgA1C was 7.9 in 11/2023.Fol lowed by endocrine [place] [facility] with multiple low BS in am of 54, recheck BS came upContinue januvia 25 mg qdStruli [facility] 1.5 weekly08/04 increase metformin 500 mg BID to 1000 mg po bid08/04 dc tresiba 20 units qhs for low BSMonitor fingerstic ks TID and HgA1C as outpt.(of note was on 35 units of insulin in recent past) Chronic pain [id number] G8 9.29 followed by pain management here08/04 start gabapentin 100 mg po bidContinu eoxycodone 10 mg qid for painceleco xib 200 mg BIDAPAP 650 mg TID and q 4 hrs prn (NTE 3000 mg/d),Cont inue fall precaution s.Monitor for safety. Pain of left eye [id number] 001 18034 H57.12 reports left eye pain related to dropper touching his eye last nightno injuries or abnormalit y of eye notedwarm compress given at visit for comfort.mo nitor Health Concerns Section Related Observation LastModified by Organization Detai ls LastModified Time None Recorded Concern Status LastModified by Organization Details LastModified Time None Recorded Advance Directives Directive Y: FULL CODE no dialysis and okay to use nutrition-use hydration Payers Encounter Date Sequence Insurance Name Policy Number Policy Richardson Covered Member ID Richardson Member ID Guarantor Name 07/01/2024 1 [facility] - DOS ON OR AFTER 2022 - MEDICARE [place]AGE [place]/ADV ANTAGE - PPO) Carlos Cazarin [id number] Carlos Cazarin 07/14/2024 1 [employer] ALLI[employer] - DOS ON OR AFTER 2022 - [place]IC[place]AGE [place]/ADV ANTAGE - PPO) Carlos Cazarin [id number] Carlos Cazarin 07/22/2024 1 [employer] [employer] - DOS ON OR AFTER 2022 - [place]/ADV ANTAGE - PPO) Carlos Cazarin [id number] Carlos Cazarin 07/30/2024 1 [employer] [employer] - DOS ON OR AFTER 2022 - [place]/ADV ANTAGE - PPO) Carlos Cazarin [id number] Carlos Cazarin 08/04/2024 1 [employer] ALLIANCE - DOS ON OR AFTER 2022 - [place]/ADV ANTAGE - PPO) Carlos Cazarin [id number] Carlos Cazarin Notes Date Note Type Note Provider Name and Address Organization Details Recorded Time 07/01/2024 text/html Carlos is seen to day [...] 10 mg qid. MARIE TORRES NP [address], [address], [place], [address], [facility] [employer] 07/01/2024 11:37:14 07/14/2024 text/html Carlos is seen [...] requests to go home and states social welfare clerk is going to talk with him. A discussion is had about how he is a 2 assist/barrington lift and how he would get the help at home. He states I dont know, but Ill figure it out . Sonja Gibbs, DIAMOND [address], [address], [place], [address], [facility] [employer] 07/16/2024 00:19:10 07/22/2024 text/html Carlos is seen to day for a 90 day routine visit. Carlos was originally admitted on 05/06 after a hospitalization for CHF exacerbation, edema, and weakness. Since here at [facility]: He has worked with rehab, but then plateaued and is now on assisted care here. He is no longer receiving therapy. He continues to need 2 max assist for transfers and requires a barrington lift. He continues to request to go home but reports he lives alone and can only get one VOCATIONAL NURSE LVN for a few hours a day currently. Social work requested to talk with him about plan. Note: SS looked in to getting him a power wheelchair, but [facility] said as long as he was here he wouldn't qualify, but would be able to get one if he goes home. He states he has 5 hr/day of VOCATIONAL NURSE LVN time and social work states he has 54 hrs/wk of VOCATIONAL NURSE LVN time. He has had some constipation and [...] His pcp Dr Jacinto referred him to [facility] with appt 07/29/24 at 1pm per pt. [...] requests to go home and states social welfare clerk is going to talk with him. Denies any constipation or abd pain. He is not able to move either leg much today when asked to raise his legs, which is a change as he was able to move the right leg more in past. He remains with weakness to the right arm and left leg. Sonja Gibbs, ITALIAN LECTURER [address], [address], [place], [address], [facility] [employer] 07/22/2024 18:36:19 07/30/2024 text/html Carlos is seen fo r an acute visit today. Carlos was originally admitted on 05/06 after a hospitalization for CHF exacerbation, edema, and weakness. CHF and edema resolved here. He has worked with rehab, but then plateaued and is now on assisted care here. He is no longer receiving [...] His pcp Dr Jacinto referred him to [facility] with appt 07/29/24 at 1pm per pt. [...] has decreased strength also. He shows this ITALIAN LECTURER his appointment pickup is at 10:45 am today for the MRI. He reports pain is baseline with oxycodone and tolerable. Referral to Dr Serna is written for with all imaging to go with consult. Sonja Gibbs, DIAMOND [address], [address], [place], [address], [employer] [facility] [employer] 07/30/2024 09:06:11 08/04/2024 text/html Carlos is seen fo r an acute visit today. Carlos had a BS of 54 per nursing this am. On recheck with breakfast 71 and typically BS very reduced to 96-120 lately. He has been titrated down from 35 to 20 units of degludec(tresiba) at night. Will reduce to 10 units and monitor closely. He was seen by pain management and recommends increasing gabapentin to 300mg po tid. He is currently not on gabapentin according to MAR. No recent encounters with therapy in the computer but scheduled for therapy on 08/06/24. Labs reviewed and stable 07/30/24. Follow up for Weakness:Imaging: While here a right shoulder xray and U/S done for swelling to lower right fingers both came back without fracture, dislocation, or thrombus. He is followed outpt by vascular Dr Awan for his lymphedema and seems to be resolving. His pcp Dr Jacinto referred him to [facility] with appt 07/29/24 at 1pm per pt. He is recommended to see Dr Serna. MRI done on 07/30 and referral and tests to [facility] for appt today.He also requested second opinion and was referred to minimally invasive surgery center at [facility] with appointment on Friday08/09/24. of note: On 06/24 he saw ALESSANDRO Apple for the weakness and pain of right arm and left leg. An MRI of lumbar spine was done and now ALESSANDRO requesting MRI of cervical neck for ?relation to the right arm weakness and numbness scheduled for 07/30/24. He was give a knee knee and a sling in the meantime. MRI done with referral to neurosurgery. of note: Carlos was originally admitted on 05/06 after a hospitalization for CHF exacerbation, edema, and weakness. CHF and edema resolved here. He has worked with rehab, but then plateaued and is now on assisted care here. He is no longer receiving therapy here. He continues to need 2 max assist for transfers and requires a barrington lift and needs are not able to be met at home. On exam, Carlos is lying in bed and states he is okay . MRI results reviewed and he is onboard with plan for fu with [facility] minimally invasive spine center on 08/09 and [address] cont [address] Serna neurosurgeon for notable spine disease and impingement, whom has done surgery on him in the past. He states he has some left eye pain today as the nurse was trying to put his drop in overnight and the bottle touched his eye. He is given a warm compress, however no redness, dryness, or swelling to eye on exam. He remains with right arm weakness and leg weakness. Sonja Gibbs, DIAMOND [address] [place] [address], [address], [place], [address], [facility] [employer] 08/04/2024 10:04:01
== END 2024-08-09 13:44 | disposition home or self-care (01) ==
PROVIDERS: PCP Internal Medicine; Referring Provider Orthopaedic Surgery; Visit Provider Physician Assistant
DX: G95.9 Disease of spinal cord, unspecified (principal)
CPT/HCPCS: 99205

== ENCOUNTER → 2024-08-09 12:52 | Outpatient (BNVA) | payer OTHER, SELFPAY | PROVIDERS: PCP Internal Medicine; Visit Provider Physician Assistant | DX: G95.9 Disease of spinal cord, unspecified (principal) | CPT/HCPCS: 99202 ==

== ENCOUNTER → 2024-08-11 13:31 | Outpatient (BNVA) | payer OTHER, SELFPAY | PROVIDERS: PCP Internal Medicine; Visit Provider Physician Assistant | DX: G95.9 Disease of spinal cord, unspecified (principal) | CPT/HCPCS: 99212 ==

== ENCOUNTER 2024-08-13 15:51 | Outpatient (REF) | payer OTHER, SELFPAY ==
--- NOTE | ~2024-08-13 | CT_ITS ---
CT/CT cervical spine wo IV con IMPRESSION: C6-C7 vertebral body fusion. Mild degenerative disc changes with ventral and posterior spondylosis. No acute fracture or dislocation seen. Fleischner guidelines were followed. Electronically signed by: Jonas Durán MD 08/16/2024 07:29 AM [facility]
== END 2024-08-13 15:52 | disposition home or self-care (01) ==
LOC: HO.CT 15:51
PROVIDERS: PCP Internal Medicine; Visit Provider Physician Assistant
DX: G95.9 Disease of spinal cord, unspecified (principal)
CPT/HCPCS: 72125

== ENCOUNTER → 2024-08-13 15:54 | Outpatient (BNV) | payer OTHER, SELFPAY | PROVIDERS: PCP Internal Medicine; Visit Provider Radiology Diagnostic Radiology | DX: G95.9 Disease of spinal cord, unspecified (principal); G95.29 Other cord compression | CPT/HCPCS: 72125 ==

== ENCOUNTER 2024-08-19 08:42 | Day surgery (SDC) | payer OTHER, SELFPAY ==
[2024-08-18 09:33] VITALS: BMI 31.8
[2024-08-18 09:46] VITALS: BMI 28.6
--- NOTE | 2024-08-18 11:52 | P.CONAN_ITS ---
HPI - Anesthesia Eval Consult details Narrative: 68yo M for C4-5,C5-6 Ant Cerv Discectomy w/ fusion SNF resident / WC bound Anesthesia Pre-Procedure Meds Is the patient on any of the following meds?: GLP1/DPP4 PMFSH Active Problems Active Problems: All Active Problems Cervical myelopathy (Acute) Wheelchair fitting or adjustment (Acute) Lumbar degenerative disc disease (Acute) Varicose veins of both lower extremities with inflammation (Acute) Right arm weakness (Acute) Physical exam (Acute) Right shoulder pain (Acute) Neck pain (Acute) Anasarca (Acute) Edema of both legs (Acute) Wheelchair dependent (Acute) Lymphedema (Acute) Encounter for wheelchair assessment (Acute) Right arm weakness (Acute) Urinary incontinence (Acute) Multiple falls (Acute) Chronic GERD (Acute) Hyperlipidemia LDL goal <70 (Acute) Left hand pain (Acute) Obesity (BMI 30-39.9) (Acute) Status post cholecystectomy (Acute) Abnormal gallbladder ultrasound (Acute) Hospital discharge follow-up (Acute) Right upper quadrant abdominal pain (Acute) Carpal tunnel syndrome of left wrist (Acute) Low vitamin D level (Acute) Paresthesia of upper extremity (Acute) Right carpal tunnel syndrome (Acute) CKD (chronic kidney disease) stage 2, GFR 60-89 ml/min (Acute) Rupture of left quadriceps tendon (Acute) Status post total knee replacement, left (Acute) Preoperative cardiovascular examination (Acute) Abnormal EKG (Acute) Osteoarthritis of left knee (Acute) Microalbuminuria (Acute) Diabetic neuropathy associated with type 2 diabetes mellitus (Acute) Arthritis of both knees (Acute) Pre-op evaluation (Acute) Orthostatic hypotension (Acute) Numbness and tingling in right hand (Acute) Diabetes mellitus (Acute) Essential hypertension (Acute) Knee osteoarthritis (Acute) Mild recurrent major depression (Acute) Mixed hyperlipidemia (Acute) Right shoulder pain (Acute) Right knee pain (Acute) Left knee pain (Acute) Proteinuria (Acute) Diabetic polyneuropathy associated with type 2 diabetes mellitus (Acute) Hypertriglyceridemia (Acute) Obesity due to excess calories (Acute) Lumbar stenosis (Acute) Past Medical History Medical History (Updated 08/18/24 @ 09:50 by Kassandra Wallace RN) GERD (gastroesophageal reflux disease) Acute cholecystitis due to biliary calculus Numbness and tingling in right hand Numbness and tingling in left hand Essential hypertension Diabetes mellitus Knee osteoarthritis Mild recurrent major depression Mixed hyperlipidemia Right shoulder pain Right knee pain Left knee pain CKD (chronic kidney disease), stage III Low back pain Multiple falls Syncope DAVINA (acute kidney injury) Obesity due to excess calories Lumbar spondylosis Proteinuria Arthritis Hypertriglyceridemia Hypertension Diabetic polyneuropathy associated with type 2 diabetes mellitus Type 2 diabetes mellitus with other diabetic kidney complication Lumbar stenosis Family History Family History Father Medical history unknown Mother Hypertension Maternal Grandmother Medical history unknown Family history of problems with anesthesia: No Surgical History Surgical History (Updated 08/18/24 @ 09:27 by Kassandra Wallace, RN) History of cholecystectomy (09/19/23) History of surgery on lower extremity History of total left knee replacement (TKR) S/P evacuation of hematoma Hx of cataract surgery History of lumbar surgery Hx of eye surgery History of back surgery History of Problems with Anesthesia: No Social History Social History (Updated 08/18/24 @ 09:49 by Kassandra Wallace, RN) Household Members: None Household Members Other:: self Housing: Apartment Housing Other:: currently at [facility] Are you a primary child care nurse to a significant other at home: No Do you presently have visiting nurse or other home services: No (CLIENT COORDINATOR) Alcohol intake: never Comment: Narciso jack Patient Tobacco Use Status: Former Tobacco user Tobacco use type: Cigarette Years Smoked: 25 e-Cigarette/Vaping Use: Never Used Second Hand Smoke Exposure: No Are you DNR?: No Advance Directives: Yes Advance Directives Information Provided: No Advance Directives on File: Yes Advance Directives Date on File: 05/12/23 service: Yes Current occupational status: disabled Cognitive needs: Yes (walker) Hearing needs: No Vision needs: Yes (reading glasses) Meds Allergies Allergy/AdvReac Type Severity Reaction Status Date / Time Penicillins [PENICILLINS] Allergy Severe RASH Verified 08/11/24 13:37 jay pepper Allergy Intermediate Rash Verified 08/11/24 13:37 pepper (genus Capsicum) AdvReac Intermediate rashes Verified 08/11/24 13:37 Home Medications ?Medication ?Instructions ?Recorded ?Confirmed ?Last Taken ?Type latanoprost 0.005 % eye drops 1 drp ophthalmic (eye) BEDTIME 11/07/20 08/18/24 09/17/23 History insulin aspart U-100 100 unit/mL 1 sliding scale dose subcut TIDAC 09/18/23 08/18/24 Unknown History (3 mL) subcutaneous pen aspirin 81 mg tablet,delayed 81 mg PO DAILY@0800 05/02/24 08/18/24 05/02/24 08:00 History release atorvastatin 20 mg tablet 20 mg PO DAILY@199905/02/24 08/18/24 05/01/24 20:00 History cyclobenzaprine 10 mg tablet 10 mg PO DAILY@1999 muscle spasm 05/02/24 08/18/24 05/01/24 20:00 History fenofibrate nanocrystallized 145 145 mg PO DAILY@0800 05/02/24 08/18/24 05/02/24 08:00 History mg tablet hydralazine 25 mg tablet 25 mg PO TID@0800,1300,199905/02/24 08/18/24 05/02/24 08:00 History icosapent ethyl 1 gram capsule 2 g PO BID@0800,199905/02/24 08/18/24 05/02/24 08:00 History (Vascepa) metformin 500 mg tablet,extended 1,000 mg PO BID@0800,199905/02/24 08/18/24 05/02/24 08:00 History release 24 hr sitagliptin phosphate 25 mg tablet 25 mg PO DAILY@0800 05/02/24 08/18/24 05/02/24 08:00 History (Januvia) furosemide 40 mg tablet 40 mg PO DAILY 05/19/24 08/18/24 Unknown History lidocaine 5 % topical patch 1 patch topical DAILY 05/19/24 08/18/24 Unknown History acetaminophen 325 mg capsule 650 mg PO Q6H PRN Pain 08/18/24 08/18/24 Unknown History bisacodyl 10 mg rectal suppository 10 mg CA DAILY PRN Constipation 08/18/24 08/18/24 Unknown History calcium carbonate 500 mg PO DAILY PRN Acid Reflux 08/18/24 08/18/24 Unknown History famotidine 20 mg tablet 20 mg PO BID 08/18/24 08/18/24 Unknown History gabapentin 100 mg capsule 100 mg PO BID 08/18/24 08/18/24 Unknown History magnesium hydroxide 400 mg/5 mL 5 ml PO DAILY PRN Constipation 08/18/24 08/18/24 Unknown History oral suspension naloxone 4 mg/actuation nasal 4 mg intranasal Q3M PRN Opioid 08/18/24 08/18/24 Unknown History spray (Narcan) Overdose sennosides 8.6 mg capsule (senna) 8.6 mg PO BEDTIME PRN Constipation 08/18/24 08/18/24 Unknown History Exam Height,Weight and Vital Signs: Height 5 ft 8 in Weight 85.457 kg Pertinent Lab Results Pertinent Lab Results: Laboratory Tests 05/06/24 06:10 WBC 6.9 Hgb 13.4 L Hct 41.8 L Plt Count 181 Sodium 143 Potassium 4.2 Chloride 106 Carbon Dioxide 27 BUN 35 H Creatinine 1.30 Narrative Narrative: EKG 04/2024 Vent. Rate : 077 BPM Atrial Rate : 077 BPM P-R Int : 152 ms QRS Dur : 100 ms QT Int : 378 ms P-R-T Axes : 045 -19 046 degrees QTc Int : 427 ms Normal sinus rhythm Normal ECG When compared with ECG of 31-MAR-2024 22:07, No significant change was found ECHO 2022 Conclusions: - 1. Normal LV ejection fraction of 60 65% with grade 1 diastolic dysfunction 2. Limited visualization cardiac valves with normal cardiac valvular Doppler 3. Upper limits of normal ascending aortic size Assessment and Plan Assessment Anesthesia Assessment: Chart Reviewed Final Anesthetic Review Family History of Problems with Anesthesia: No History of Problems with Anesthesia: No
[2024-08-19] VITALS (16 sets, daily range): BP systolic 98–138; BP diastolic 55–79; PULSE 90–99; RESP 12–20; TEMP 35.9–36.4; O2SAT 93–97; BMI 29.3
--- NOTE | ~2024-08-19 | FL_ITS ---
EXAMINATION: FL GUIDANCE ONLY HISTORY: C4-6 ACDF COMPARISON: Correlation is made to a CT of the cervical spine dated 08/13/2024. TECHNIQUE: Fluoroscopy time: 8 seconds. Cumulative Dose: 1.5953 mGy. DAP: 0.4899 mGym2 Images: 2. FINDINGS: Images demonstrate anterior cervical disc fusion at C4-5 and C5-6. FL/FL guidance in OR IMPRESSION: Fluoroscopy during procedure. Please see procedure report for additional information. Electronically signed by: Jorge Huynh MD 08/19/2024 12:40 PM ALFRED
--- NOTE | 2024-08-19 07:07 | PM.DS ---
DS: Providers Provider Date of Service: 08/19/24 Date of discharge: 08/19/24 Primary care physician: Tram Álvarez MD Admitting clinician: Luis Alfredo Isabel DS: Diagnosis Discharge Diagnosis (1) Cervical myelopathy: Status: Acute DS: Summary Time Attestation Discharge Coordination Time (in mins): 5 Quality: Safe Use of Opioids Does Pt have an Active Cancer Diagnosis on the Problem List?: No Quality: Stroke Does the patient have a stroke diagnosis?: No Physical Exam Vital Signs: Vital Signs: BMI result Body Mass Index 28.6 DS: Data Data Completed and Pending Completed studies during hospitalization [Text1]: Procedures Inspection of Gallbladder, Percutaneous Endoscopic Approach (09/18/23) Introduction of Anesthetic Agent into Peripheral Nerves and Plexi, Percutaneous Approach (05/07/23) Repair Left Upper Leg Tendon, Open Approach (05/07/23) Resection of Gallbladder, Open Approach (09/18/23) Discharge Plan Discharge Patient Disposition: Home, Self-Care Referrals: Tram Royal MD [Primary Care Provider] - 1 Week Discharge Medications: Continued (DME) walker Misc See Rx Instructions .ROUTE .MEDSUPPLY Qty: 1 0RF Rx Instructions: As directed (DME) Ultra-Light Rollator Misc See Rx Instructions .ROUTE .MEDSUPPLY Qty: 1 0RF Rx Instructions: with seat (DME) sock aid See Rx Instructions .Route .MEDSUPPLY Qty: 1 0RF Rx Instructions: As directed (DME) leg unindentured apprentice See Rx Instructions .Route .MEDSUPPLY Qty: 1 0RF Rx Instructions: As directed (DME) FreeStyle Tirso 14 Day [place] Misc See Rx Instructions .ROUTE .MEDSUPPLY Qty: 1 0RF Rx Instructions: As directed (DME) Shower Chair Misc See Rx Instructions .Route Qty: 1 0RF Rx Instructions: As directed (DME) Brace,wrist Misc See Rx Instructions .Route Qty: 1 0RF Rx Instructions: right hand wrist splint (DME) FreeStyle Tirso 2 Sensor Kit See Rx Instructions .Route Qty: 2 11RF Rx Instructions: As directed (DME) pen needle, diabetic 31 gauge x 5/16 needle See Rx Instructions subcut .MEDSUPPLY Qty: 200 4RF Rx Instructions: five times a day (DME) bed rail See Rx Instructions .Route .MEDSUPPLY Qty: 1 0RF Rx Instructions: As directed (DME) bedside commode Kit See Rx Instructions .Route Qty: 1 0RF Rx Instructions: As directed (DME) adult diapers pull-ups X-large See Rx Instructions .Route .MEDSUPPLY Qty: 240 11RF Rx Instructions: As directed (DME) wipes See Rx Instructions .Route .MEDSUPPLY Qty: 400 11RF Rx Instructions: As directed (DME) compr.stocking,knee,long,x-lrg Misc See Rx Instructions .Route Qty: 12 0RF Rx Instructions: As quuiizfe-83-12 mmhg (DME) hospital bed Kit See Rx Instructions .Route Qty: 1 0RF Rx Instructions: As directed- full electric oxycodone 10 mg tablet 10 mg PO Q6H PRN (Reason: pain) 30 Days Qty: 120 0RF Rx Instructions: Partial Fill upon patient request. cholecalciferol (vitamin D3) 50 mcg (2,000 unit) tablet 50 mcg PO DAILY Qty: 90 0RF (DME) wheelchair electric See Rx Instructions .Route .MEDSUPPLY Qty: 1 0RF Rx Instructions: As directed latanoprost 0.005 % drops 1 drp ophthalmic (eye) BEDTIME Rx Instructions: 1 drop into both eyes insulin aspart U-100 100 unit/mL (3 mL) Insulin Pen 1 sliding scale dose subcut TIDAC Protocol: Insulin Correction Scale Less than or equal to 110 ---- Give (units): 0 111 to 150 Give (units): 0 151 to 200 Give (units): 2 201 to 250 Give (units): 4 251 to 300 Give (units): 6 301 to 350 Give (units): 8 Greater than 350 Give (units): 10 Call MD if Blood Glucose > : 350 famotidine 20 mg tablet 20 mg PO BID gabapentin 100 mg capsule 100 mg PO BID magnesium hydroxide 400 mg/5 mL Suspension 5 ml PO DAILY PRN (Reason: Constipation) bisacodyl 10 mg Suppository 10 mg FL DAILY PRN (Reason: Constipation) calcium carbonate 500 mg calcium (1,250 mg) Tablet,Chewable 500 mg PO DAILY PRN (Reason: Acid Reflux) senna 8.6 mg Capsule 8.6 mg PO BEDTIME PRN (Reason: Constipation) acetaminophen 325 mg Capsule 650 mg PO Q6H PRN (Reason: Pain) naloxone [Narcan] 4 mg/actuation [place],Non-Aerosol 4 mg INTRANASAL Q3M PRN (Reason: Opioid Overdose) Rx Instructions: spray 1 dose into ONE nostril; alternate nostrils w each dose until help arrives cyclobenzaprine 10 mg tablet 10 mg PO DAILY@1999 atorvastatin 20 mg tablet 20 mg PO DAILY@1999 hydralazine 25 mg tablet 25 mg PO TID@0800,1300,1999 metformin 500 mg tablet extended release 24 hr 1,000 mg PO BID@0800,1999 fenofibrate nanocrystallized 145 mg tablet 145 mg PO DAILY@0800 Januvia 25 mg tablet 25 mg PO DAILY@0800 icosapent ethyl [Vascepa] 1 gram capsule 2 g PO BID@0800,1999 amlodipine 2.5 mg Tablet 2.5 mg PO DAILY Qty: 1 0RF Protocol: Hold for SBP< HOLD for SBP < : 90 tamsulosin 0.4 mg Capsule 0.4 mg PO DAILY Qty: 1 0RF benazepril 40 mg tablet 10 mg PO DAILY@1999 Qty: 1 0RF polyethylene glycol 3350 17 gram Powder In Packet 17 g PO DAILY PRN (Reason: Constipation) Qty: 1 0RF ([facility]) blood pressure monitor Kit See Rx Instructions .Route Qty: 1 0RF Rx Instructions: As directed ([facility]) chair lift See Rx Instructions .Route .MEDSUPPLY Qty: 1 0RF Rx Instructions: As directed furosemide 40 mg tablet 40 mg PO DAILY lidocaine 5 % adhesive patch,medicated 1 patch topical DAILY Rx Instructions: leave on most painful area for up to 12 hrs Held aspirin 81 mg tablet,delayed release (DR/EC) 81 mg PO DAILY@0800 Hold Instructions: Resume on 08/26/24. You may resume this 7 days after surgery Discharge Orders: Discharge Order (Routine); Ordered 08/19/24 Ordered By: Renan Esquivel Diet: Advance to usual diet Activity on Discharge: As tolerated Activity Restrictions/Additional Instructions: After your spinal surgery we ask you to observe the following restrictions/guidelines: Activity: It is normal to feel some discomfort as you increase your activity, but that will improve with time. We ask you avoid heavy lifting or acitivities that cause pain. As a general rule, 8lbs is a safe limit for lifting right after surgery. Walk as much as you feel comfortable but not to exhaustion. You will feel extra tired the first few days after surgery. Stay well hydrated. It is OK to walk up and down stairs You may return to driving when you are off narcotics (such as vicodin, oxycodone, dilaudid, etc), and you are back to normal functional capacity. If you have any concerns please check with office before driving. Return to work is specific to each patient and each surgery, so please speak with your doctor/PA at first follow up. Please bring paperwork such as FMLA at that time if you need it filled out. Medications: For optimum pain control, it is best to start with a combination of 500 mg of Tylenol every 4 hours with 600 mg of Motrin every 8 hours, and use narcotics as needed in between for breakthrough pain. We will give you a short supply of narcotics after surgery (usually one weeks worth). If you need more please call the office but do not use more than prescribed. You will need to give our office 48 hours notice if you need narcotics refilled and we do not fill narcotics on weekends or evenings. If you are on a narcotic, it is a good idea to take a stool softener such as colace or senna to avoid constipation If you take blood thinner such as aspirin, Plavix, Coumadin, Effient, Eliquis etc for conditions such as Afib, DVT, Pulmonary embolus, coronary disease, stents etc please speak with your surgeon about specific details as to when you can resume these medications. You can resume NSAIDs on post op day 1 (eg: Motrin, Naproxen, etc). Follow up: Please call the office, , after surgery to arrange a 3 week follow up for wound check. Wound Care: You may remove your dressing on the first day after surgery. ?You may ?leave open to air. Please do not remove the steri strips underneath. they will fall off on their own in one week. IT IS NORMAL FOR THE WOUND TO OOZE OR BE BLOODY FOR A FEW DAYS AFTER SURGERY. ?IF THIS HAPPENS JUST PLACE NEW DRESSING OVER IT TO AVOID STAINING CLOTHES. You may shower on post op day # 1 We ask that you do not let the water soak the wound. If it does get wet, just towel dry lightly. Please do not scrub your incision or place any type of chemical/ointment on the wound. No tub baths, pools or jacuzzis for one month. If you have any leaking or redness from your wound, or fevers, please call office Print Language: Solomon Islander
--- NOTE | 2024-08-19 08:35 | P.CONAN_ITS ---
[facility] Active Problems Active Problems: All Active Problems Cervical myelopathy (Acute) Wheelchair fitting or adjustment (Acute) Lumbar degenerative disc disease (Acute) Varicose veins of both lower extremities with inflammation (Acute) Right arm weakness (Acute) Physical exam (Acute) Right shoulder pain (Acute) Neck pain (Acute) Anasarca (Acute) Edema of both legs (Acute) Wheelchair dependent (Acute) Lymphedema (Acute) Encounter for wheelchair assessment (Acute) Right arm weakness (Acute) Urinary incontinence (Acute) Multiple falls (Acute) Chronic GERD (Acute) Hyperlipidemia LDL goal <70 (Acute) Left hand pain (Acute) Obesity (BMI 30-39.9) (Acute) Status post cholecystectomy (Acute) Abnormal gallbladder ultrasound (Acute) Hospital discharge follow-up (Acute) Right upper quadrant abdominal pain (Acute) Carpal tunnel syndrome of left wrist (Acute) Low vitamin D level (Acute) Paresthesia of upper extremity (Acute) Right carpal tunnel syndrome (Acute) CKD (chronic kidney disease) stage 2, GFR 60-89 ml/min (Acute) Rupture of left quadriceps tendon (Acute) Status post total knee replacement, left (Acute) Preoperative cardiovascular examination (Acute) Abnormal EKG (Acute) Osteoarthritis of left knee (Acute) Microalbuminuria (Acute) Diabetic neuropathy associated with type 2 diabetes mellitus (Acute) Arthritis of both knees (Acute) Pre-op evaluation (Acute) Orthostatic hypotension (Acute) Numbness and tingling in right hand (Acute) Diabetes mellitus (Acute) Essential hypertension (Acute) Knee osteoarthritis (Acute) Mild recurrent major depression (Acute) Mixed hyperlipidemia (Acute) Right shoulder pain (Acute) Right knee pain (Acute) Left knee pain (Acute) Proteinuria (Acute) Diabetic polyneuropathy associated with type 2 diabetes mellitus (Acute) Hypertriglyceridemia (Acute) Obesity due to excess calories (Acute) Lumbar stenosis (Acute) Past Medical History Medical History GERD (gastroesophageal reflux disease) Acute cholecystitis due to biliary calculus Numbness and tingling in right hand Numbness and tingling in left hand Essential hypertension Diabetes mellitus Knee osteoarthritis Mild recurrent major depression Mixed hyperlipidemia Right shoulder pain Right knee pain Left knee pain CKD (chronic kidney disease), stage III Low back pain Multiple falls Syncope DAVINA (acute kidney injury) Obesity due to excess calories Lumbar spondylosis Proteinuria Arthritis Hypertriglyceridemia Hypertension Diabetic polyneuropathy associated with type 2 diabetes mellitus Type 2 diabetes mellitus with other diabetic kidney complication Lumbar stenosis Functional capacity: wheelchair bound Family History Family History Father Medical history unknown Mother Hypertension Maternal Grandmother Medical history unknown Family history of problems with anesthesia: No Surgical History Surgical History History of cholecystectomy (09/19/23) History of surgery on lower extremity History of total left knee replacement (TKR) S/P evacuation of hematoma Hx of cataract surgery History of lumbar surgery Hx of eye surgery History of back surgery History of Problems with Anesthesia: No Social History Social History Household Members: None Household Members Other:: self Housing: Apartment Housing Other:: currently at [facility] Are you a primary healthcare insurance sales agent to a significant other at home: No Do you presently have visiting nurse or other home services: No ([employer]) Alcohol intake: never Comment: Narciso lift Patient Tobacco Use Status: Former Tobacco user Tobacco use type: Cigarette Years Smoked: 25 e-Cigarette/Vaping Use: Never Used Second Hand Smoke Exposure: No Are you DNR?: No Advance Directives: Yes Advance Directives Information Provided: No Advance Directives on File: Yes Advance Directives Date on File: 05/12/23 service: Yes Current occupational status: disabled Cognitive needs: Yes (walker) Hearing needs: No Vision needs: Yes (reading glasses) Meds Allergies Allergy/AdvReac Type Severity Reaction Status Date / Time Penicillins [PENICILLINS] Allergy Severe RASH Verified 08/11/24 13:37 jay pepper Allergy Intermediate Rash Verified 08/11/24 13:37 pepper (genus Capsicum) AdvReac Intermediate rashes Verified 08/11/24 13:37 Home Medications ?Medication ?Instructions ?Recorded ?Confirmed ?Last Taken ?Type latanoprost 0.005 % eye drops 1 drp ophthalmic (eye) BEDTIME 11/07/20 08/18/24 09/17/23 History insulin aspart U-100 100 unit/mL 1 sliding scale dose subcut TIDAC 09/18/23 08/18/24 Unknown History (3 mL) subcutaneous pen aspirin 81 mg tablet,delayed 81 mg PO DAILY@0800 05/02/24 08/18/24 05/02/24 08:00 History release atorvastatin 20 mg tablet 20 mg PO DAILY@199905/02/24 08/18/24 05/01/24 20:00 History cyclobenzaprine 10 mg tablet 10 mg PO DAILY@1999 muscle spasm 05/02/24 08/18/24 05/01/24 20:00 History fenofibrate nanocrystallized 145 145 mg PO DAILY@0800 05/02/24 08/18/24 05/02/24 08:00 History mg tablet hydralazine 25 mg tablet 25 mg PO TID@0800,1300,199905/02/24 08/18/24 05/02/24 08:00 History icosapent ethyl 1 gram capsule 2 g PO BID@0800,199905/02/24 08/18/24 05/02/24 08:00 History (Vascepa) metformin 500 mg tablet,extended 1,000 mg PO BID@0800,199905/02/24 08/18/24 05/02/24 08:00 History release 24 hr sitagliptin phosphate 25 mg tablet 25 mg PO DAILY@0800 05/02/24 08/18/24 05/02/24 08:00 History (Januvia) furosemide 40 mg tablet 40 mg PO DAILY 05/19/24 08/18/24 Unknown History lidocaine 5 % topical patch 1 patch topical DAILY 05/19/24 08/18/24 Unknown History acetaminophen 325 mg capsule 650 mg PO Q6H PRN Pain 08/18/24 08/18/24 Unknown History bisacodyl 10 mg rectal suppository 10 mg [place] DAILY PRN Constipation 08/18/24 08/18/24 Unknown History calcium carbonate 500 mg PO DAILY PRN Acid Reflux 08/18/24 08/18/24 Unknown History famotidine 20 mg tablet 20 mg PO BID 08/18/24 08/18/24 Unknown History gabapentin 100 mg capsule 100 mg PO BID 08/18/24 08/18/24 Unknown History magnesium hydroxide 400 mg/5 mL 5 ml PO DAILY PRN Constipation 08/18/24 08/18/24 Unknown History oral suspension naloxone 4 mg/actuation nasal 4 mg intranasal Q3M PRN Opioid 08/18/24 08/18/24 Unknown History spray (Narcan) Overdose sennosides 8.6 mg capsule (senna) 8.6 mg PO BEDTIME PRN Constipation 08/18/24 08/18/24 Unknown History Exam Height,Weight and Vital Signs: Height 5 ft 8 in Weight 85.457 kg Assessment and Plan Final Anesthetic Review Family History of Problems with Anesthesia: No History of Problems with Anesthesia: No NPO: Yes ASA Class: III
--- OUTSIDE RECORDS SUMMARY | 2024-08-19 08:46 | XMS_ITS | Encounter Summary ---
Author Organization [facility] Address [address] [place] [address] Care Team Providers Care Supervisor [employer] Name Role Phone Tram Álvarez MD Primary Care Provider [phone] Encounter Details Date Type Department Care Team (Late st Contact Info) Description 07/22/2024 Lab Requisition [facility] [address] [place] [address] Prince Le MD [address] [facility] [address] [place], [address] Type 2 diabetes mellitus without complications (CMS/HCC) Social History Tobacco Use Types Packs/Day Years Used Date Smoking Tobacco: Never Assessed Sex and Gender Information Value Date Recorded Sex Assigned at Not on file Legal Sex Male 1:13 PM EST Gender Identity Not on file Sexual Orientation Not on file documented as of this encounter Plan of Treatment Not on file documented as of this encounter Procedures Procedure [...] mg/dL LAB CHEMISTRY METHOD 07/23/2024 10:47 AM [facility] Blood Venous blood specimen / Unknown Venipuncture / Unknown 07/23/2024 6:52 AM EST 07/23/2024 9:26 AM EST us Prince Le MD LAB BLOOD ORDERABLES Final Resul t [facility] [address] [place] [address], * (ABNORMAL) Comprehensive metabolic panel (07/23/2024 6:52 AM EST) Sodium 137 133 - 145 mmol/L LAB CHEMISTRY METHOD 07/23/2024 10:47 AM [facility] Potassium 5.3 3.5 - 5.5 mmol/L LAB CHEMISTRY METHOD 07/23/2024 10:47 AM [facility] Chloride 102 96 - 110 mmol/L LAB CHEMISTRY METHOD 07/23/2024 10:47 AM [facility] CO2 28 21 - 32 mmol/L LAB CHEMISTRY METHOD 07/23/2024 10:47 AM [facility] Anion Gap 7 3 - 11 LAB CHEMISTRY METHOD 07/23/2024 10:47 AM [facility] Glucose 78 70 - 100 mg/dL LAB CHEMISTRY METHOD 07/23/2024 10:47 AM [facility] BUN 39(H) 5 - 25 mg/dL LAB CHEMISTRY METHOD 07/23/2024 10:47 AM [facility] Creatinine 1.58(H) 0.70 - 1.30 mg/dL LAB CHEMISTRY METHOD 07/23/2024 10:47 AM [facility] eGFR 47(L) >=60 mL/min/1. 73m2 LAB CHEMISTRY METHOD 07/23/2024 10:47 AM [facility] Comment:Calculation based on the??Chronic Kidney Disease Epidemiology Collaboration (CKD-EPI) equation refit??without adjustment for race. BUN/Creatinine Ratio 24.7 LAB CHEMISTRY METHOD 07/23/2024 10:47 AM [facility] Calcium 9.5 8.5 - 10.5 mg/dL LAB CHEMISTRY METHOD 07/23/2024 10:47 AM [facility] AST (SGOT) 25 10 - 42 unit/L LAB CHEMISTRY METHOD 07/23/2024 10:47 AM [facility] ALT (SGPT) 26 10 - 60 unit/L LAB CHEMISTRY METHOD 07/23/2024 10:47 AM [facility] Alkaline Phosphatase 68 42 - 121 unit/L LAB CHEMISTRY METHOD 07/23/2024 10:47 AM [facility] Total Protein 6.9 6.0 - 8.0 g/dL LAB CHEMISTRY METHOD 07/23/2024 10:47 AM [facility] Albumin 3.5 3.2 - 5.0 g/dL LAB CHEMISTRY METHOD 07/23/2024 10:47 AM [facility] Total Bilirubin 0.4 0.0 - 1.4 mg/dL LAB CHEMISTRY METHOD 07/23/2024 10:47 AM [facility] Blood Venous blood specimen / Unknown Venipuncture / Unknown 07/23/2024 6:52 AM EST 07/23/2024 9:26 AM EST us Prince Le MD LAB BLOOD ORDERABLES Final Resul t [facility] [address] [place] [address], * (ABNORMAL) Complete blood count (07/23/2024 6:52 AM EST) WBC 9.2 4.8 - 10.8 K/mcL LAB HEMETOLOGY METHOD 07/23/2024 10:13 AM EST [facility] RBC 4.90 4.50 - 5.50 M/mcL LAB HEMETOLOGY METHOD 07/23/2024 10:13 AM [facility] Hemoglobin 13.6 13.5 - 17.5 g/dL LAB HEMETOLOGY METHOD 07/23/2024 10:13 AM [facility] Hematocrit 41.2(L) 42.0 - 54.0 % LAB HEMETOLOGY METHOD 07/23/2024 10:13 AM [facility] MCV 83.7 79.0 - 98.0 FL LAB HEMETOLOGY METHOD 07/23/2024 10:13 AM [facility] MCH 27.6 27.0 - 32.0 pcg LAB HEMETOLOGY METHOD 07/23/2024 10:13 AM [facility] MCHC 33.0 32.0 - 37.0 g/dL LAB HEMETOLOGY METHOD 07/23/2024 10:13 AM [facility] RDW 19.0(H) 11.0 - 15.0 % LAB HEMETOLOGY METHOD 07/23/2024 10:13 AM [facility] Platelets 364 130 - 400 K/mcL LAB HEMETOLOGY METHOD 07/23/2024 10:13 AM [facility] MPV 12.2(H) 7.0 - 11.0 FL LAB HEMETOLOGY METHOD 07/23/2024 10:13 AM [facility] NRBC 0.0 <1.0 % LAB HEMETOLOGY METHOD 07/23/2024 10:13 AM [facility] NRBC Absolute 0.00 <0.10 K/mcL LAB HEMETOLOGY METHOD 07/23/2024 10:13 AM [facility] Blood Venous blood specimen / Unknown Venipuncture / Unknown 07/23/2024 6:52 AM EST 07/23/2024 9:26 AM EST us Prince Le MD LAB BLOOD ORDERABLES Final Resul t [facility] [address] [place] [address], [place] [phone] documented in this encounter Visit Diagnoses Diagnosis Type 2 diabetes mellitus without complications (CMS/HCC) documented in this encounter Care Teams Supervisor [employer] Relationship Specialty Start Date End Date Tram Álvarez MD [address] [facility] , [address] [facility] D/B/A: [facility] [place] PCP - General Internal Medicine 03/30/18 documented as of this encounter
--- OUTSIDE RECORDS SUMMARY | 2024-08-19 08:46 | XMS_ITS | Encounter Summary ---
Author Organization [facility] Address [address] [place] [address] Care Team Providers Care Doper Name Role Phone Tram Álvarez MD Primary Care Provider [phone] Encounter Details Date Type Department Care Team (Late st Contact Info) Description 05/21/2024 Lab Requisition [facility] - Main Lab [address] [place] [address] Prince Le MD 38 [facility] [address] [place], [address] Essential (primary) hypertension Social History Tobacco [...] mmol/L LAB CHEMISTRY METHOD 05/24/2024 9:02 AM EST [facility] Potassium 4.2 3.5 - 5.5 mmol/L LAB CHEMISTRY METHOD 05/24/2024 9:02 AM EST [facility] Chloride 109 96 - 110 mmol/L LAB CHEMISTRY METHOD 05/24/2024 9:02 AM [facility] CO2 28 21 - 32 mmol/L LAB CHEMISTRY METHOD 05/24/2024 9:02 AM [facility] Anion Gap 5 3 - 11 LAB CHEMISTRY METHOD 05/24/2024 9:02 AM [facility] Glucose 129(H) 70 - 100 mg/dL LAB CHEMISTRY METHOD 05/24/2024 9:02 AM [facility] BUN 38(H) 5 - 25 mg/dL LAB CHEMISTRY METHOD 05/24/2024 9:02 AM [facility] Creatinine 1.33(H) 0.70 - 1.30 mg/dL LAB CHEMISTRY METHOD 05/24/2024 9:02 AM [facility] eGFR 58(L) >=60 mL/min/1. 73m2 LAB CHEMISTRY METHOD 05/24/2024 9:02 AM [facility] Comment:Calculation based on the??Chronic Kidney Disease Epidemiology Collaboration (CKD-EPI) equation refit??without adjustment for race. BUN/Creatinine Ratio 28.6 LAB CHEMISTRY METHOD 05/24/2024 9:02 AM [facility] Calcium 9.2 8.5 - 10.5 mg/dL LAB CHEMISTRY METHOD 05/24/2024 9:02 AM [facility] Blood Venous blood specimen / Unknown Venipuncture / Unknown 05/24/2024 6:00 AM EST 05/24/2024 7:45 AM EST us Prince Le MD LAB BLOOD ORDERABLES Final Resul t [facility] [address] [place] [address], * (ABNORMAL) Complete blood count (05/24/2024 6:00 AM EST) WBC 9.3 4.8 - 10.8 K/mcL LAB HEMETOLOGY METHOD 05/24/2024 9:03 AM [facility] RBC 4.90 4.50 - 5.50 M/[facility] LAB HEMETOLOGY METHOD 05/24/2024 9:03 AM [facility] Hemoglobin 13.6 13.5 - 17.5 g/dL LAB HEMETOLOGY METHOD 05/24/2024 9:03 AM [facility] Hematocrit 43.1 42.0 - 54.0 % LAB HEMETOLOGY METHOD 05/24/2024 9:03 AM [facility] MCV 87.4 79.0 - 98.0 FL LAB HEMETOLOGY METHOD 05/24/2024 9:03 AM [facility] MCH 27.6 27.0 - 32.0 pcg LAB HEMETOLOGY METHOD 05/24/2024 9:03 AM [facility] MCHC 31.6(L) 32.0 - 37.0 g/dL LAB HEMETOLOGY METHOD 05/24/2024 9:03 AM [facility] RDW 16.4(H) 11.0 - 15.0 % LAB HEMETOLOGY METHOD 05/24/2024 9:03 AM [facility] Platelets 249 130 - 400 K/[facility] LAB HEMETOLOGY METHOD 05/24/2024 9:03 AM [facility] MPV 13.1(H) 7.0 - 11.0 FL LAB HEMETOLOGY METHOD 05/24/2024 9:03 AM [facility] NRBC 0.0 <1.0 % LAB HEMETOLOGY METHOD 05/24/2024 9:03 AM [facility] NRBC Absolute 0.00 <0.10 K/[facility] LAB HEMETOLOGY METHOD 05/24/2024 9:03 AM [facility] Blood Venous blood specimen / Unknown Venipuncture / Unknown 05/24/2024 6:00 AM EST 05/24/2024 7:45 AM EST us Prince Le MD LAB BLOOD ORDERABLES Final Resul t [facility] [address] [place] [address], documented in this encounter Visit Diagnoses Diagnosis Essential (primary) hypertension Unspecified essential hypertension documented in this encounter Care Teams Doper Relationship Specialty Start Date End Date Tram Álvarez MD 2 [facility] , [address] [place] [address] Physician Associ D/B/A: [facility] JAS Duque PCP - General Internal Medicine 03/30/18 documented as of this encounter
--- OUTSIDE RECORDS SUMMARY | 2024-08-19 08:46 | XMS_ITS | Encounter Summary ---
Author Organization [facility] Address [address] [place] [address] Care Team Providers Care Golf Course Mechanic Name Role Phone Tram Álvarez MD Primary Care Provider [phone] Encounter Details Date Type Department Care Team (Late st Contact Info) Description 08/05/2024 Lab Requisition [facility] - Main Lab [address] [place] [address] Prince Le MD 38 [facility] [address] [place], [address] Type 2 diabetes mellitus without complications [...] 6:49 AM EST 08/06/2024 8:31 AM EST us Prince Le MD LAB BLOOD ORDERABLES Final Resul t [facility] [address] [place] [address], * Comprehensive metabolic panel (08/06/2024 6:49 AM EST) Sodium 140 133 - 145 mmol/L LAB CHEMISTRY METHOD 08/06/2024 9:31 AM [facility] Potassium 5.0 3.5 - 5.5 mmol/L LAB CHEMISTRY METHOD 08/06/2024 9:31 AM [facility] Chloride 106 96 - 110 mmol/L LAB CHEMISTRY METHOD 08/06/2024 9:31 AM [facility] CO2 30 21 - 32 [...] 6:49 AM EST 08/06/2024 8:31 AM EST us Prince Le MD LAB BLOOD ORDERABLES Final Resul t [facility] [address] [place] [address], * (ABNORMAL) Complete blood count (08/06/2024 6:49 AM EST) WBC 8.2 4.8 - 10.8 K/mcL LAB HEMETOLOGY METHOD 08/06/2024 9:12 AM [facility] RBC 4.50 4.50 - 5.50 [...] 08/06/2024 9:12 AM [facility] NRBC 0.0 <1.0 % LAB HEMETOLOGY METHOD 08/06/2024 9:12 AM [facility] NRBC Absolute 0.00 <0.10 K/mcL LAB HEMETOLOGY METHOD 08/06/2024 9:12 AM [facility] Blood Venous blood specimen / Unknown Venipuncture / Unknown 08/06/2024 6:49 AM EST 08/06/2024 8:31 AM EST us Prince Le MD LAB BLOOD ORDERABLES Final Resul t [facility] [address] [place] [address], documented in this encounter Visit Diagnoses Diagnosis Type 2 diabetes mellitus without complications (CMS/HCC) documented in this encounter Care Teams Golf Course Mechanic Relationship Specialty Start Date End Date Tram Álvarez MD 2 [facility] , [address] [facility] Physician Associ D/B/A: [facility] [place] PCP - General Internal Medicine 03/30/18 documented as of this encounter
--- OUTSIDE RECORDS SUMMARY | 2024-08-19 08:46 | XMS_ITS | Clinical Summary ---
Author Organization [facility] Address [address] [place] [address] Phone Care Team Providers Care Laundry Presser Name Role Phone Tram Álvarez MD Primary Care Provider [phone] Encounters Date Type Department Care Team Description 08/12/2024 Lab Requisition [facility] Lab [address] [place] [phone] Prince Le MD Type 2 diabetes mellitus without complications ([facility]/HCC) 08/05/2024 Lab Requisition [facility] [address] [place] [phone] Prince Le MD Type 2 diabetes mellitus without complications (CMS/HCC) 07/29/2024 Lab Requisition [facility] [address] [place] [address] Prince Le MD Type 2 diabetes mellitus without complications ([facility]/HCC) 07/22/2024 Lab Requisition [facility] Lab [address] [place] [address] Prince Le MD Type 2 diabetes mellitus without complications (CMS/HCC) 07/16/2024 Lab Requisition [facility] Main Lab [address] [place] [address] Prince Le MD Type 2 diabetes mellitus without complications (CMS/HCC) 06/18/2024 Lab Requisition [facility] Main Lab [address] [place] [address] Prince Le MD Nausea with vomiting, unspecified; Chronic kidney disease, unspecified 05/28/2024 Lab Requisition [facility] - Main Lab [address] [place] [phone] Prince Le MD Essential (primary) hypertension 05/21/2024 Lab Requisition [facility] - Main Lab [address] [place] [phone] Prince Le MD Essential (primary) hypertension from [...] 10/04/1965 Zoster Vaccines (1 of 2) 10/04/2005 DTaP,Tdap,and Td Vaccines (2 - Td or Tdap) 09/28/2010 08/31/2010 RSV Immunization Patients 60+ Years Old (1 - Risk 60-74 years 1-dose series) 2015 Pneumococcal Vaccine: 50+ Years (2 of 2 - PCV) 05/12/2019 05/12/2018, 07/09/2010 Abdominal Aortic Aneurysm (AAA) Screen 06/04/2022 Cholesterol [...] 05/08/2024 Diabetes: Annual GFR (Glomerular Filtration Rate) 08/13/2025 08/13/2024, 08/06/2024, 07/30/2024, Additional history exists Hypertension/CHF/CAD Annual BMP Blood Test 08/13/2025 08/13/2024, 08/06/2024, 07/30/2024, Additional history exists Influenza Vaccine Completed 04/15/2024, [...] patient's age to complete this topic Meningococcal B Vacine Aged Out No lo nger eligible based on patient's age to complete this topic RSV Immunization Patients Under 20 months Aged Out No longer eligible based on patient's age to complete this topic Varicella Vaccines Aged Out No longer eligible based on patient's age to complete this topic Procedures Procedure Name Priority Date/Time Associated Diagnosis Comments C-REACTIVE PROTEIN Routine 08/13/2024 7: 38 AM EST Type 2 diabetes mellitus without complications (CMS/HCC) COMPREHENSIVE METABOLIC PANEL Routine 08/13/2024 7:38 AM EST Type 2 diabetes mellitus without complications (CMS/HCC) COMPLETE BLOOD COUNT Routine 08/13/2024 7:30 AM EST Type 2 diabetes mellitus [...] 05/24/2024 6:00 AM EST Essential (primary) hypertension from Last 3 Months Results * (ABNORMAL) C-reactive protein (08/13/2024 7:38 AM EST) Only the most recent of5 resultswithin the time period is included. [facility] C-Reactive Protein 0.55(H) <=0.50 mg/dL LAB CHEMISTRY METHOD 08/13/2024 11:[address] [facility] Blood Venous blood specimen / Unknown Venipuncture / Unknown 08/13/2024 7:38 AM EST 08/13/2024 11:02 AM EST us Prince Le MD LAB BLOOD ORDERABLES Final Resul t [facility] [address] [place] [address], [place] [phone] * (ABNORMAL) Comprehensive metabolic panel (08/13/2024 7:38 AM EST) Only the most recent of5 resultswithin the time period is included. [facility] Sodium 137 133 - 145 mmol/L LAB CHEMISTRY METHOD 08/13/2024 11:42 AM [facility] Potassium 5.1 3.5 - 5.5 mmol/L LAB CHEMISTRY METHOD 08/13/2024 11:42 AM [facility] Chloride 103 96 - 110 mmol/L LAB CHEMISTRY METHOD 08/13/2024 11:42 AM [facility] CO2 29 21 - 32 mmol/L LAB CHEMISTRY METHOD 08/13/2024 11:42 AM [facility] Anion Gap 5 3 - 11 LAB CHEMISTRY METHOD 08/13/2024 11:42 AM [facility] Glucose 90 70 - 100 mg/dL LAB CHEMISTRY METHOD 08/13/2024 11:42 AM [facility] BUN 31(H) 5 - 25 mg/dL LAB CHEMISTRY METHOD 08/13/2024 11:42 AM [facility] Creatinine 0.98 0.70 - 1.30 mg/dL LAB CHEMISTRY METHOD 08/13/2024 11:42 AM [facility] eGFR 84 >=60 mL/min/1. 73m2 LAB CHEMISTRY METHOD 08/13/2024 11:42 AM [facility] Comment:Calculation based on the??Chronic Kidney Disease Epidemiology Collaboration (CKD-EPI) equation refit??without adjustment for race. BUN/Creatinine Ratio 31.6 LAB CHEMISTRY METHOD 08/13/2024 11:42 AM [facility] Calcium 9.2 8.5 - 10.5 mg/dL LAB CHEMISTRY METHOD 08/13/2024 11:42 AM [facility] AST (SGOT) 36 10 - 42 unit/L LAB CHEMISTRY METHOD 08/13/2024 11:42 AM [facility] ALT (SGPT) 32 10 - 60 unit/L LAB CHEMISTRY METHOD 08/13/2024 11:42 AM [facility] Alkaline Phosphatase 47 42 - 121 unit/L LAB CHEMISTRY METHOD 08/13/2024 11:42 AM [facility] Total Protein 6.4 6.0 - 8.0 g/dL LAB CHEMISTRY METHOD 08/13/2024 11:42 AM [facility] Albumin 3.4 3.2 - 5.0 g/dL LAB CHEMISTRY METHOD 08/13/2024 11:42 AM [facility] Total Bilirubin 0.6 0.0 - 1.4 mg/dL LAB CHEMISTRY METHOD 08/13/2024 11:42 AM [facility] Blood Venous blood specimen / Unknown Venipuncture / Unknown 08/13/2024 7:38 AM EST 08/13/2024 11:02 AM EST us Prince Le MD LAB BLOOD ORDERABLES Final Resul t [facility] [address] [place] [address], * (ABNORMAL) Complete blood count (08/13/2024 7:30 AM EST) Only the most recent of8 resultswithin the time period is included. WBC 8.4 4.8 - 10.8 K/mcL LAB HEMETOLOGY METHOD 08/13/2024 11:11 AM [facility] RBC 4.20(L) 4.50 - 5.50 M/mcL LAB HEMETOLOGY METHOD 08/13/2024 11:11 AM [facility] Hemoglobin 11.6(L) 13.5 - 17.5 g/dL LAB HEMETOLOGY METHOD 08/13/2024 11:11 AM [facility] Hematocrit 36.1(L) 42.0 - 54.0 % LAB HEMETOLOGY METHOD 08/13/2024 11:11 AM [facility] MCV 86.2 79.0 - 98.0 FL LAB HEMETOLOGY METHOD 08/13/2024 11:11 AM [facility] MCH 27.7 27.0 - 32.0 pcg LAB HEMETOLOGY METHOD 08/13/2024 11:11 AM [facility] MCHC 32.1 32.0 - 37.0 g/dL LAB HEMETOLOGY METHOD 08/13/2024 11:11 AM [facility] RDW 21.2(H) 11.0 - 15.0 % LAB HEMETOLOGY METHOD 08/13/2024 11:11 AM [facility] Platelets 338 130 - 400 K/mcL LAB HEMETOLOGY METHOD 08/13/2024 11:11 AM [facility] MPV 12.8(H) 7.0 - 11.0 FL LAB HEMETOLOGY METHOD 08/13/2024 11:[address] [facility] NRBC 0.0 <1.0 % LAB HEMETOLOGY METHOD 08/13/2024 11:[address] [facility] NRBC Absolute 0.00 <0.10 K/mcL LAB HEMETOLOGY METHOD 08/13/2024 11:11 AM [facility] Blood Venous blood specimen / Unknown Venipuncture / Unknown 08/13/2024 7:30 AM EST 08/13/2024 10:59 AM EST us Prince Le MD LAB BLOOD ORDERABLES Final Resul t [facility] [address] [place] [address], [place] [phone] * (ABNORMAL) Basic metabolic panel (06/18/2024 6:44 AM EST) Only the most recent of3 resultswithin the time period is included. Sodium 142 133 - 145 mmol/L LAB CHEMISTRY METHOD 06/18/2024 11:17 AM [facility] Potassium 4.6 3.5 - 5.5 mmol/L LAB CHEMISTRY METHOD 06/18/2024 11:17 AM [facility] Chloride 102 96 - 110 mmol/L LAB CHEMISTRY METHOD 06/18/2024 11:17 AM [facility] CO2 32 21 - 32 mmol/L LAB CHEMISTRY METHOD 06/18/2024 11:17 AM [facility] Anion Gap 8 3 - 11 LAB CHEMISTRY METHOD 06/18/2024 11:17 AM [facility] Glucose 72 70 - 100 mg/dL LAB CHEMISTRY METHOD 06/18/2024 11:17 AM [facility] BUN 35(H) 5 - 25 mg/dL LAB CHEMISTRY METHOD 06/18/2024 11:17 AM [facility] Creatinine 1.44(H) 0.70 - 1.30 mg/dL LAB CHEMISTRY METHOD 06/18/2024 11:[address] [facility] eGFR 53(L) >=60 mL/min/1. 73m2 LAB CHEMISTRY METHOD 06/18/2024 11:[address] [facility] Comment:Calculation based on the??Chronic Kidney Disease Epidemiology Collaboration (CKD-EPI) equation refit??without adjustment for race. BUN/Creatinine Ratio 24.3 LAB CHEMISTRY METHOD 06/18/2024 11:[address] [facility] Calcium 9.3 8.5 - 10.5 mg/dL LAB CHEMISTRY METHOD 06/18/2024 11:17 AM [facility] Blood Venous blood specimen / Unknown Venipuncture / Unknown 06/18/2024 6:44 AM EST 06/18/2024 9:17 AM EST us Prince Le MD LAB BLOOD ORDERABLES Final Resul t [facility] [address] [place] [address], [place] [phone] from Last 3 Months Insurance [facility] [employer] [employer] Member Subscriber Plan / Payer (Ef fective 2023-Present) Name:Carlos Cabrera Relation to Subscriber:Self Name:Carlos Cabrera Payer ID:[id number] Group ID:[id number] Type:Not on file Address: [place] [address] [place] [id number] Care Teams Laundry Presser Relationship Specialty Start Date End Date Tram Álvarez MD 2 [facility] , [address] [facility] Physician Associ D/B/A: [facility] JAS Duque PCP - General Internal Medicine 03/30/18
--- OUTSIDE RECORDS SUMMARY | 2024-08-19 08:46 | XMS_ITS | Encounter Summary ---
Author Organization [facility] Address [address] [place] [address] Care Team Providers Care Natural Gas Plant Supervisor Name Role Phone Tram Álvarez MD Primary Care Provider [phone] Encounter Details Date Type Department Care Team (Late st Contact Info) Description 05/28/2024 Lab Requisition [facility] - Main Lab [address] [place] [address] Prince Le MD 38 [facility] [address] [place], [address] Essential (primary) hypertension Social History Tobacco [...] mmol/L LAB CHEMISTRY METHOD 05/31/2024 11:37 AM EST [facility] Potassium 4.5 3.5 - 5.5 mmol/L LAB CHEMISTRY METHOD 05/31/2024 11:37 AM EST [facility] Chloride 108 96 - 110 mmol/L LAB CHEMISTRY METHOD 05/31/2024 11:37 AM [facility] CO2 28 21 - 32 mmol/L LAB CHEMISTRY METHOD 05/31/2024 11:37 AM [facility] Anion Gap 6 3 - 11 LAB CHEMISTRY METHOD 05/31/2024 11:37 AM [facility] Glucose 104(H) 70 - 100 mg/dL LAB CHEMISTRY METHOD 05/31/2024 11:37 AM [facility] BUN 25 5 - 25 mg/dL LAB CHEMISTRY METHOD 05/31/2024 11:37 AM [facility] Creatinine 1.15 0.70 - 1.30 mg/dL LAB CHEMISTRY METHOD 05/31/2024 11:37 AM [facility] eGFR 69 >=60 mL/min/1. 73m2 LAB CHEMISTRY METHOD 05/31/2024 11:37 AM [facility] Comment:Calculation based on the??Chronic Kidney Disease Epidemiology Collaboration (CKD-EPI) equation refit??without adjustment for race. BUN/Creatinine Ratio 21.7 LAB CHEMISTRY METHOD 05/31/2024 11:37 AM [facility] Calcium 9.2 8.5 - 10.5 mg/dL LAB CHEMISTRY METHOD 05/31/2024 11:37 AM [facility] Blood Venous blood specimen / Unknown Venipuncture / Unknown 05/31/2024 7:20 AM EST 05/31/2024 10:13 AM EST us Prince Le MD LAB BLOOD ORDERABLES Final Resul t [facility] [address] [place] [address], * (ABNORMAL) Complete blood count (05/31/2024 7:20 AM EST) WBC 8.8 4.8 - 10.8 K/mcL LAB HEMETOLOGY METHOD 05/31/2024 10:39 AM [facility] RBC 5.10 4.50 - 5.50 M/mcL LAB HEMETOLOGY METHOD 05/31/2024 10:39 AM [facility] Hemoglobin 14.2 13.5 - 17.5 g/dL LAB HEMETOLOGY METHOD 05/31/2024 10:39 AM [facility] Hematocrit 44.7 42.0 - 54.0 % LAB HEMETOLOGY METHOD 05/31/2024 10:39 AM [facility] MCV 87.0 79.0 - 98.0 FL LAB HEMETOLOGY METHOD 05/31/2024 10:39 AM [facility] MCH 27.6 27.0 - 32.0 pcg LAB HEMETOLOGY METHOD 05/31/2024 10:39 AM [facility] MCHC 31.8(L) 32.0 - 37.0 g/dL LAB HEMETOLOGY METHOD 05/31/2024 10:39 AM [facility] RDW 16.5(H) 11.0 - 15.0 % LAB HEMETOLOGY METHOD 05/31/2024 10:39 AM [facility] Platelets 242 130 - 400 K/mcL LAB HEMETOLOGY METHOD 05/31/2024 10:39 AM [facility] MPV 12.5(H) 7.0 - 11.0 FL LAB HEMETOLOGY METHOD 05/31/2024 10:39 AM [facility] NRBC 0.0 <1.0 % LAB HEMETOLOGY METHOD 05/31/2024 10:39 AM [facility] NRBC Absolute 0.00 <0.10 K/mcL LAB HEMETOLOGY METHOD 05/31/2024 10:39 AM [facility] Blood Venous blood specimen / Unknown Venipuncture / Unknown 05/31/2024 7:20 AM EST 05/31/2024 10:16 AM EST us Prince Le MD LAB BLOOD ORDERABLES Final Resul t [facility] [address] [place] [address], [place] [phone] documented in this encounter Visit Diagnoses Diagnosis Essential (primary) hypertension Unspecified essential hypertension documented in this encounter Care Teams Natural Gas Plant Supervisor Relationship Specialty Start Date End Date Tram Álvarez MD 2 [facility] , [address] [facility] Physician Associ D/B/A: [facility] JAS Duque PCP - General Internal Medicine 03/30/18 documented as of this encounter
--- OUTSIDE RECORDS SUMMARY | 2024-08-19 08:46 | XMS_ITS | Continuity of Care Document ---
Author Organization [facility], [facility] Address [address] [place] [address] Care Team Providers Care Director [place] Name Role Phone LANG HERRERA Primary Care Provider [phone] [facility] [place] - 4TH FLOOR OTHER Assessment No assessment [...] Address Organization Details Recorded Time Diabetes mellitus 52038974 Active 2019 YANG SWEET [address], [place], [address], [facility] 0 09:29:33 Depressive disorder 27834529 Active 2019 YANG SWEET [address] , [address], [place], [address], [facility] 0 09:29:39 Essential hypertensio n 79643402 Active [address], [address], [place], [address], [facility] 0 09:29:47 Hypercholes terolemia 48383823 Active 2019 [address], [address], [place], [address], [facility] 0 09:29:57 Vitamin D deficiency 41728992 Active 2019 [address]ANG [address]ET [address], [address], [place], [address], [facility] 0 09:30:10 Insomnia 246560806 Active 2019 YANG SWEET [address], [address], [place], [address], [place] [facility] 0 09:30:19 Spinal stenosis of lumbar region 36038639 Active 2019 YANG SWEET [address], [address], [place], [address], [place] - [facility] 0 09:30:43 Total knee replacement Active 2022 Sonja Gibbs NP [address] , [address], [place], [address], [facility] 3 09:12:50 Acute pain of joint of knee 0593666418922 04 Active 2022 Sonja Gibbs NP [address] [facility], [address], [place], [address], [facility] 3 09:14:53 Constipatio n 94046053 Active 2022 Sonja Gibbs NP [address] [facility] [facility], [address], [place], [address], [facility] 3 10:15:39 Osteoarthri tis of knee 865214342 Active 2022 Judie Camacho MD [address] [facility] [facility], [address], [place], [address], [facility] 3 20:37:14 Chronic kidney disease stage 1 327680344 Active 2022 Judie Camacho MD [address] [facility] [facility], [address], [place], [address], [facility] 3 20:53:16 Chronic diastolic heart failure 051103146 Active 2023 Judie Camacho MD [address] [facility] [facility], [address], [place], [address], [facility] 4 21:28:14 Chronic kidney disease stage 2 190849437 Active 2023 Judie Camacho MD [address] [facility], [address], [place], [address], [facility] 4 21:28:20 Problem Notes None recorded. Procedures Surgical History Date Name Laterality Status Provider Name and Address Organization Details Recorded Time laminotomy completed NURIAYANG LUIS [address] [facility] [facility], [address], [place], [address], [facility] 01/06/2020 09:27:06 Imaging Results None recorded. Procedure Notes None recorded. Medical Equipment None Reported. Allergies Allergen ID Allergen Name Allergen Category Reaction Reaction Severity Criticality Documentation Date Start Date Code Code System Note Provider Name and Address Organization Details Recorded Time 45347 Product containin g penicilli n and antibioti c (product) medicatio n rash Not available Not available 01/06/2020 40907 05 SNOMED Not Available Not Available Not [...] Details Last Updated DateTime 5 198.12 cm 46578.1 8 g 21.5 kg/m2 78 /min 18 /min 98.6 [degF] 97 % 97 % 131 mm[Hg] 74 mm[Hg] Sonja Gibbs NP [address] [facility], [address], [place], [address], [facility] 5 08:04:57 Social History Question Answer Notes LastModified by Organizat ion Details LastModified Time Tobacco Smoking Status Former Smoker Sonja Gibbs, DIAMOND [address] [facility], [address], [place], [address], [facility] - [facility] 02/14/2023 10:11:47 Do You Have An Advance Directive? Yes FULL CODE No Dialysis And Okay To Use Nutrition-us e Hydration Information not available 02/14/2023 What Is Your Level Of Alcohol Consumption? Occasional Information not available 02/14/2023 How Much Tobacco Do You Chew? None [id number] Information not available 05/02/2020 What Is Your Code Status? Full Code Information not available 02/14/2023 Do You Or Have You Ever Used E-cigarettes Or Vape? Never Used Electronic Cigarettes [id number] Information not available 05/02/2020 Where Do You Live? Apartment Elevator Information not available 02/19/2023 Legal Guardian? No Informati on not available 02/14/2023 Do You Have A Medical Power Of Real Estate Services Administrator? Yes [id number] Information not available 05/02/2020 What Was The [...] Used Smokeless Tobacco? Never Used Smokeless Tobacco [id number] Information not available 05/02/2020 Do You Use Any Illicit Or Recreational Drugs? No Information not available 02/14/2023 Has Tobacco Cessation Counseling Been Provided? No N/a As Pt. No Longer Smokes Information not available 02/19/2023 How Many Years Have You Smoked Tobacco? 40 [id number] Information not available 05/02/2020 Do You Have [...] Influenza, adjuvanted, quadrivalent, PF 2 [facility] 09:57:53 Influenza, adjuvanted, quadrivalent, PF 3 [facility]/2023 11:45:01 pneumococcal polysaccharide PPV23 8 completed Sade [facility] 05/07/2024 15:50:52 influenza, unspecified formulation 4 completed Sdae [facility] 05/07/2024 15:51:08 SARS-COV-2 (COVID-19) vaccine, UNSPECIFIED 1 completed Sade [facility] 05/07/2024 15:51:23 SARS-COV-2 (COVID-19) vaccine, UNSPECIFIED 1 completed Sade [facility] 05/07/2024 15:51:30 SARS-COV-2 (COVID-19) vaccine, UNSPECIFIED 3 completed Sadeclifton [facility] 05/07/2024 15:51:38 Past Encounters Encounter ID Performer Location Encounter Start Date Encounter Closed Date Diagnosis/Indication Diagnosis SNOMED-CT Code Diagnosis ICD10 Code Diagnosis Note [id number] MARIE TORRES NP [address] [address] 07/01/2024 11:24:41 07/02/2024 11:53:48 Constipation 02456613 K59.09 Documented BM 06/24, 06/28Pt. states no [...] to scheduled dailyTo ER if condition worsens [id number] Sonja Gibbs NP [facility] [address] [address] 07/14/2024 13:30:49 07/16/2024 10:19:43 Diabetes mellitus 74780593 E11.9 Last HgA1C was 7.9 in 11/2023.Fol lowed by endocrine at [facility].with BS of 44 on 07/15 and similar in past, remains asymptomat icContinue trulicity 1.5 weekly, metformin 500 mg BID, januvia 25 mg qd, and SSI1/8 decrease (degludec) tresiba 26 U qd to 20 unitsMonit or fingerstic ks TID and HgA1C as outpt.of note was on 35 units of insulin in recent past Asthenia 16154601 R53.1 remains with weakness to left leg and right arm12/20 right arm and left knee brace on in am and off in pm per dr anderson's ordersPT/O T eval and treat prn, off regular therapymon itor [id number] Sonja Gibbs NP [facility] [address] [address] 07/22/2024 14:17:32 07/23/2024 15:07:54 Constipation 25301483 K59.09 with regular bm per patient todayCurre ntly no abd. pain, no N/V.BS [id number] e fluids, dietary fiber.cont senna plus 2 tabs qdmiralax dailyhouse bowel protocol prn Diabetes mellitus 259641 09 E11.9 Last HgA1C was 7.9 in 11/2023.Fol lowed by endocrine at [facility] with multiple low BS in amContinue trulicity 1.5 weeklymetf ormin 500 mg BIDanuvia 25 mg qd, and SSI(deglud ec)tresiba 20 unitsMonit or fingerstic ks TID and HgA1C as outpt.(of note was on 35 units of insulin in recent past) Asthenia 66596120 R53.1 remains with weakness to left leg and right arm, and today with right leg weaknessri ght arm and left knee brace on in am and off in pm per dr anderson's ordersPT/O T eval and treat prn, off regular therapymargareth mccullough Spinal mg nosis of lumbar region 10288301 M48.062 With chronic back pain. hx of oxycodone 10 mg QID at baseline and cont with fair management here While here a right shoulder xray and U/S done for swelling to lower right fingers both came back without fracture, dislocatio n, or thrombus. He is followed outpt by vascular for his lymphedema . MRI lumbar spine back 06/01/24 ordered outpt by pcp anamaria-g rade 1 reltrolist hesis of L2 in [...] off in pmfu after MRI sched 5 [facility] at 1 pm sched from outside providerco ntPT/OT for strengthen ing, balance, gait training, safety and function prnremains barrington lift at this timeContin ue fall precaution s.Monitor for safety.Margareth mccullough pain controlCel ebrex remains on hold. Pain in right arm 859990 004 M79.601 Denies trauma or injury. feels [...] and MRI cervical spine as ordered by epsteinMon itor closely.se e above for management Osteoarthr itis of knee 387308273 M17.12 Z96.652 LTKR originally done on 02/11remains [...] concernsmo nitor Chronic di astolic heart failure 145897828 I50.32 per hosp report of CHF.he never [...] fluid status, wts and labs. Essential hypertension 74513440 I10 stableCont inue meds as above and amlodipine 2.5 mg qd.Monitor BP and labsDaily BPs ordered. Depressive disorder 3548 9007 F32.89 In hx.On no meds.Monit or mood.Psych consult prn. Benign pro static hyperplasia without outflow obstruction 143481074 N40.0 In hx, with some issues with retention at times.Cont inuetamsul osin 0.4 mg qd. Gastroesop hageal reflux disease without esophagitis 944016526 K21.9 Using TUMS frequently for GERD/GI sx. resolvingc ontpepcid 20 mg bidMonitor sx.If remain problemati c, consider trial of PPI Nausea and vomiting 1692 1999 R11.2 resolvedse e belowzofra n 4 mg po q 6 hours prn n/v x 30 days Chronic ki dney disease stage 2 411362671 N18.2 At baseline.C ontinue to avoid nephrotoxi c meds as able.Monit or labs.Renal consult prn. Hypercholesterolemia 136 41532 E78.2 Continueat orvastatin 20 mg qdfenofibr ate 145 mg qdvascepa 2 g BID,ASA 81 mg qd.Monitor labs as outpt. [id number] Sonja Gibbs NP [address] [facility] [place] [address] 07/30/2024 08:03:45 08/03/2024 12:50:06 Spinal stenosis of lumbar region 51698821 M48.062 With chronic back pain and weakness [...] in pmfu after cervical MRI sched 07/3107/29/24 [facility] with rec:neuros urgery consult with Dr Serna 07/30 referral to [facility] ordered as recommende d, has MRI today. contPT/OT prn, [facility] [place] at this timeContin ue fall precaution s.Monitor for safety.Mon itor pain controlCel ebrex remains on hold. Asthenia 15855020 R53.1 remains with weakness to left leg and right arm, and today with right leg weaknessri ght arm sling and left knee brace on in am and off in pm per dr anderson's ordersPT/O T eval and treat prn, off regular jean mccullough Pain in right arm 585811 004 M79.601 Denies trauma or injury. feels [...] above for management Osteoarthr itis of knee 191369970 M17.12 Z96.652 LTKR originally done on 02/11remains [...] Richardson Member ID Guarantor Name 07/30/2024 1 [facility] - DOS ON OR AFTER 2022 - MEDICARE ADVANTAGE [place] (MEDICARE REPLACEMENT/ADV ANTAGE - PPO) Carlos Crespotessie [id number] Carlos Crespotessie Notes Date Note Type Note Provider Name and Address Organization Details Recorded Time 07/30/2024 text/html Carlos is seen fo r an acute visit today. Carlos was originally admitted on 05/06 after a hospitalization for CHF exacerbation, edema, and weakness. CHF and edema resolved here. He has worked with rehab, but then plateaued and is now on senior living care here. He is no longer receiving [...] His pcp Dr Jacinto referred him to [facility] with appt 07/29/24 at [...] has decreased strength also. He shows this [facility] his appointment pickup is at 10:45 am today for the MRI. He reports pain is baseline with oxycodone and tolerable. Referral to Dr Serna is written for with all imaging to go with consult. Sonja Gibbs, DIAMOND [address] [facility], [address], [place], [address], [facility] - [email or web address] 07/30/2024 09:06:11
--- OUTSIDE RECORDS SUMMARY | 2024-08-19 08:46 | XMS_ITS | Encounter Summary ---
Author Organization [facility] Address [address] [place] [address] Care Team Providers Care Sack Lifter Name Role Phone Tram Álvarez MD Primary Care Provider [phone] Encounter Details Date Type Department Care Team (Late st Contact Info) Description 07/29/2024 Lab Requisition [facility] - Main Lab [address] [place] [address] Prince Le MD [address] [facility] [address] [place], [address] Type 2 diabetes mellitus without complications [...] mg/dL LAB CHEMISTRY METHOD 07/30/2024 10:25 AM [facility] Blood Venous blood specimen / Unknown Venipuncture / Unknown 07/30/2024 7:30 AM EST 07/30/2024 9:39 AM EST us Prince Le MD LAB BLOOD ORDERABLES Final Resul t [facility] [address] [place] [address], [place] [phone] * (ABNORMAL) Comprehensive metabolic panel (07/30/2024 7:30 AM EST) Sodium 140 133 - 145 mmol/L LAB CHEMISTRY METHOD 07/30/2024 10:25 AM [facility] Potassium 5.1 3.5 - 5.5 mmol/L LAB CHEMISTRY METHOD 07/30/2024 10:25 AM [facility] Chloride 107 96 - 110 mmol/L LAB CHEMISTRY METHOD 07/30/2024 10:25 AM [facility] CO2 31 21 - 32 mmol/L LAB CHEMISTRY METHOD 07/30/2024 10:25 AM [facility] Anion Gap 2(L) 3 - 11 LAB CHEMISTRY METHOD 07/30/2024 10:25 AM [facility] Glucose 76 70 - 100 mg/dL LAB CHEMISTRY METHOD 07/30/2024 10:25 AM [facility] BUN 28(H) 5 - 25 mg/dL LAB CHEMISTRY METHOD 07/30/2024 10:25 AM [facility] Creatinine 1.13 0.70 - 1.30 mg/dL LAB CHEMISTRY METHOD 07/30/2024 10:25 AM [facility] eGFR 71 >=60 mL/min/1. 73m2 LAB CHEMISTRY METHOD 07/30/2024 10:25 AM [facility] Comment:Calculation based on the??Chronic Kidney Disease Epidemiology Collaboration (CKD-EPI) equation refit??without adjustment for race. BUN/Creatinine Ratio 24.8 LAB CHEMISTRY METHOD 07/30/2024 10:25 AM [facility] Calcium 9.5 8.5 - 10.5 mg/dL LAB CHEMISTRY METHOD 07/30/2024 10:25 AM [facility] AST (SGOT) 28 10 - 42 unit/L LAB CHEMISTRY METHOD 07/30/2024 10:25 AM [facility] ALT (SGPT) 24 10 - 60 unit/L LAB CHEMISTRY METHOD 07/30/2024 10:25 AM [facility] Alkaline Phosphatase 62 42 - 121 unit/L LAB CHEMISTRY METHOD 07/30/2024 10:25 AM [facility] Total Protein 6.4 6.0 - 8.0 g/dL LAB CHEMISTRY METHOD 07/30/2024 10:25 AM [facility] Albumin 3.2 3.2 - 5.0 g/dL LAB CHEMISTRY METHOD 07/30/2024 10:25 AM [facility] Total Bilirubin 0.4 0.0 - 1.4 mg/dL LAB CHEMISTRY METHOD 07/30/2024 10:25 AM [facility] Blood Venous blood specimen / Unknown Venipuncture / Unknown 07/30/2024 7:30 AM EST 07/30/2024 9:39 AM EST us Prince Le MD LAB BLOOD ORDERABLES Final Resul t [facility] [address] [place] [address], * (ABNORMAL) Complete blood count (07/30/2024 7:30 AM EST) WBC 8.9 4.8 - 10.8 K/mcL LAB HEMETOLOGY METHOD 07/30/2024 9:[address] [facility] RBC 4.30(L) 4.50 - 5.50 M/mcL LAB HEMETOLOGY METHOD 07/30/2024 9:55 AM [facility] Hemoglobin 12.1(L) 13.5 - 17.5 g/dL LAB HEMETOLOGY METHOD 07/30/2024 9:55 AM [facility] Hematocrit 36.5(L) 42.0 - 54.0 % LAB HEMETOLOGY METHOD 07/30/2024 9:55 AM [facility] MCV 84.3 79.0 - 98.0 FL LAB HEMETOLOGY METHOD 07/30/2024 9:55 AM [facility] MCH 27.9 27.0 - 32.0 pcg LAB HEMETOLOGY METHOD 07/30/2024 9:55 AM [facility] MCHC 33.2 32.0 - 37.0 g/dL LAB HEMETOLOGY METHOD 07/30/2024 9:55 AM [facility] RDW 19.4(H) 11.0 - 15.0 % LAB HEMETOLOGY METHOD 07/30/2024 9:55 AM [facility] Platelets 315 130 - 400 K/mcL LAB HEMETOLOGY METHOD 07/30/2024 9:55 AM [facility] MPV 12.7(H) 7.0 - 11.0 FL LAB HEMETOLOGY METHOD 07/30/2024 9:55 AM [facility] NRBC 0.0 <1.0 % LAB HEMETOLOGY METHOD 07/30/2024 9:55 AM [facility] NRBC Absolute 0.00 <0.10 K/mcL LAB HEMETOLOGY METHOD 07/30/2024 9:55 AM [facility] Blood Venous blood specimen / Unknown Venipuncture / Unknown 07/30/2024 7:30 AM EST 07/30/2024 9:39 AM EST us Prince Le MD LAB BLOOD ORDERABLES Final Resul t [facility] [address] [place] [address], documented in this encounter Visit Diagnoses Diagnosis Type 2 diabetes mellitus without complications (CMS/HCC) documented in this encounter Care Teams Sack Lifter Relationship Specialty Start Date End Date Tram Álvarez MD [address] [facility] , [address] [place] [address] Physician Associ D/B/A: [facility] [place], [place] PCP - General Internal Medicine 03/30/18 documented as of this encounter
--- OUTSIDE RECORDS SUMMARY | 2024-08-19 08:46 | XMS_ITS | Clinical Summary ---
Author Organization [employer] Address [address] [place] [address] Care Team Providers Care Screen Printing Stencil Preparer Name Role Phone Unavailable Primary Care Provider [...]
--- OUTSIDE RECORDS SUMMARY | 2024-08-19 08:46 | XMS_ITS | Encounter Summary ---
Author Organization [facility] Address [address] [place] [address] Care Team Providers Care Director Of Agriculture Name Role Phone Tram Álvarez MD Primary Care Provider [phone] Encounter Details Date Type Department Care Team (Late st Contact Info) Description 08/12/2024 Lab Requisition [facility] - Main Lab [address] [place] [address] Prince Le MD [address] [facility] [address] [place], [address] Type 2 diabetes mellitus without complications [...] this encounter Results * (ABNORMAL) C-reactive protein (08/13/2024 7:38 AM EST) C-Reactive Protein 0.55(H) <=0.50 mg/dL LAB CHEMISTRY METHOD 08/13/2024 11:42 AM [facility] Blood Venous blood specimen / Unknown Venipuncture / Unknown 08/13/2024 7:38 AM EST 08/13/2024 11:02 AM EST us Prince Le MD LAB BLOOD ORDERABLES Final Resul t [facility] [address] [place] [address], * (ABNORMAL) Comprehensive metabolic panel (08/13/2024 7:38 AM EST) Sodium 137 133 - 145 mmol/L LAB CHEMISTRY METHOD 08/13/2024 11:42 AM [facility] Potassium 5.1 3.5 - 5.5 mmol/L LAB CHEMISTRY METHOD 08/13/2024 11:42 AM [facility] Chloride 103 96 - 110 mmol/L LAB CHEMISTRY METHOD 08/13/2024 11:42 AM [facility] CO2 29 21 - 32 mmol/L LAB CHEMISTRY METHOD 08/13/2024 11:42 AM [facility] Anion Gap 5 3 - 11 LAB CHEMISTRY METHOD 08/13/2024 11:42 AM [facility] Glucose 90 70 - 100 mg/dL LAB CHEMISTRY METHOD 08/13/2024 11:42 AM [facility] BUN 31(H) 5 - 25 mg/dL LAB CHEMISTRY METHOD 08/13/2024 11:42 AM [facility] Creatinine 0.98 0.70 - 1.30 mg/dL LAB CHEMISTRY METHOD 08/13/2024 11:42 AM [facility] eGFR 84 >=60 mL/min/1. 73m2 LAB CHEMISTRY METHOD 08/13/2024 11:42 AM [facility] Comment:Calculation based on the??Chronic Kidney Disease Epidemiology Collaboration (CKD-EPI) equation refit??without adjustment for race. BUN/Creatinine Ratio 31.6 LAB CHEMISTRY METHOD 08/13/2024 11:42 AM [facility] Calcium 9.2 8.5 - 10.5 mg/dL LAB CHEMISTRY METHOD 08/13/2024 11:42 AM [facility] AST (SGOT) 36 10 - 42 unit/L LAB CHEMISTRY METHOD 08/13/2024 11:42 AM [facility] ALT (SGPT) 32 10 - 60 unit/L LAB CHEMISTRY METHOD 08/13/2024 11:42 AM [facility] Alkaline Phosphatase 47 42 - 121 unit/L LAB CHEMISTRY METHOD 08/13/2024 11:42 AM [facility] Total Protein 6.4 6.0 - 8.0 g/dL LAB CHEMISTRY METHOD 08/13/2024 11:42 AM [facility] Albumin 3.4 3.2 - 5.0 g/dL LAB CHEMISTRY METHOD 08/13/2024 11:42 AM [facility] Total Bilirubin 0.6 0.0 - 1.4 mg/dL LAB CHEMISTRY METHOD 08/13/2024 11:42 AM [facility] Blood Venous blood specimen / Unknown Venipuncture / Unknown 08/13/2024 7:38 AM EST 08/13/2024 11:02 AM EST us Prince Le MD LAB BLOOD ORDERABLES Final Resul t [facility] [address] [place] [address], * (ABNORMAL) Complete blood count (08/13/2024 7:30 AM EST) WBC 8.4 4.8 - 10.8 K/mcL LAB HEMETOLOGY METHOD 08/13/2024 11:11 AM [facility] RBC 4.20(L) 4.50 - 5.50 M/mcL LAB HEMETOLOGY METHOD 08/13/2024 11:11 AM [facility] Hemoglobin 11.6(L) 13.5 - 17.5 g/dL LAB HEMETOLOGY METHOD 08/13/2024 11:11 AM [facility] Hematocrit 36.1(L) 42.0 - 54.0 % LAB HEMETOLOGY METHOD 08/13/2024 11:11 AM [facility] MCV 86.2 79.0 - 98.0 FL LAB HEMETOLOGY METHOD 08/13/2024 11:11 AM [facility] MCH 27.7 27.0 - 32.0 pcg LAB HEMETOLOGY METHOD 08/13/2024 11:11 AM [facility] MCHC 32.1 32.0 - 37.0 g/dL LAB HEMETOLOGY METHOD 08/13/2024 11:11 AM [facility] RDW 21.2(H) 11.0 - 15.0 % LAB HEMETOLOGY METHOD 08/13/2024 11:11 AM [facility] Platelets 338 130 - 400 K/mcL LAB HEMETOLOGY METHOD 08/13/2024 11:11 AM [facility] MPV 12.8(H) 7.0 - 11.0 FL LAB HEMETOLOGY METHOD 08/13/2024 11:11 AM [facility] NRBC 0.0 <1.0 % LAB HEMETOLOGY METHOD 08/13/2024 11:11 AM [facility] NRBC Absolute 0.00 <0.10 K/mcL LAB HEMETOLOGY METHOD 08/13/2024 11:11 AM [facility] Blood Venous blood specimen / Unknown Venipuncture / Unknown 08/13/2024 7:30 AM EST 08/13/2024 10:59 AM EST us Prince Le MD LAB BLOOD ORDERABLES Final [facility]ul t [facility] [address] [place] [address], [place] [phone] documented in this encounter Visit Diagnoses Diagnosis Type 2 diabetes mellitus without complications (CMS/HCC) documented in this encounter Care Teams Director Of Agriculture Relationship Specialty Start Date End Date Tram Álvarez MD [address] [facility] , [address] [facility] Physician Associ D/B/A: [facility] [place] PCP - General Internal Medicine 03/30/18 documented as of this encounter
--- OUTSIDE RECORDS SUMMARY | 2024-08-19 08:47 | XMS_ITS | Continuity of Care Document ---
Author Organization [facility], [facility] Address [address] [place] [address] Care Team Providers Care Mangle Feeder Name Role Phone LANG HERRERA Primary Care Provider [phone] [facility] - 4TH FLOOR OTHER Assessment No assessment [...] Address Organization Details Recorded Time Diabetes mellitus 31364328 Active 2019 YANG SWEET [address], [place], [address], [facility] 0 09:29:33 Depressive disorder 46933208 Active 2019 YANG SWEET [address] , [address], [place], [address], [facility] 0 09:29:39 Essential hypertensio n 59440006 Active 2019 YANG SWEET [address], [address], [place], [address], [facility] 0 09:29:47 Hypercholes terolemia 65546291 Active 2019 YANG SWEET [address], [address], [place], [address], [facility] 0 09:29:57 Vitamin D deficiency 40797966 Active 2019 YANG SWEET [address], [address], [place], [address], [employer] [facility] 0 09:30:10 Insomnia 050484328 Active 2019 YANG SWEET [address], [address], [place], [address], [place] - [facility] 0 09:30:19 Spinal stenosis of lumbar region 04123806 Active 2019 YANG SWEET [address], [address], [place], [address], [place] - [facility] 0 09:30:43 Total knee replacement Active 2022 Sonja Gibbs NP [address] , [address], [place], [address], [employer] [facility] 3 09:12:50 Acute pain of joint of knee 0339727558803 04 Active 2022 Sonja Gibbs NP [address] [facility], [address], [place], [address], [employer] [facility] 3 09:14:53 Constipatio n 87139847 Active 2022 Sonja Gibbs NP [address] [facility], [address], [place], [address], [facility] 3 10:15:39 Osteoarthri tis of knee 248373471 Active 2022 Judie Camacho MD [address] [facility], [address], [place], [address], [facility] 3 20:37:14 Chronic kidney disease stage 1 111800217 Active 2022 Judie Camacho MD [address] [facility], [address], [place], [address], [facility] 3 20:53:16 Chronic diastolic heart failure 869439955 Active 2023 Judie Camacho MD [address] [facility], [address], [place], [address], [facility] 4 21:28:14 Chronic kidney disease stage 2 191932267 Active 2023 Judie Camacho MD [address] [facility], [address], [place], [address], [employer] 4 21:28:20 Problem Notes None recorded. Procedures Surgical History Date Name Laterality Status Provider Name and Address Organization Details Recorded Time laminotomy completed NURIAYANG LUIS [address] [facility], [address], [place], [address], [employer] 01/06/2020 09:27:06 Imaging Results None recorded. Procedure Notes None recorded. Medical Equipment None Reported. Allergies Allergen ID Allergen Name Allergen Category Reaction Reaction Severity Criticality Documentation Date Start Date Code Code System Note Provider Name and Address Organization Details Recorded Time 13445 Product containin g penicilli n and antibioti c (product) medicatio n rash Not available Not available 01/06/2020 95806 05 SNOMED Not Available Not Available Not [...] Updated DateTime 5 198.12 cm 22.4 kg/m2 99914.9 2 g 62 /min 18 /min 97.6 [degF] 97 % 97 % 117 mm[Hg] 82 mm[Hg] Sonja Gibbs NP [address] [facility], [address], [place], [address], [employer] 5 14:18:18 Social History Question Answer Notes LastModified by Organizat ion Details LastModified Time Tobacco Smoking Status Former Smoker Sonja Gibbs, DIAMOND [address] [facility], [address], [place], [address], [facility] 02/14/2023 10:11:47 Do You Have An Advance Directive? Yes FULL CODE No Dialysis And Okay To Use Nutrition-us e Hydration Information not available 02/14/2023 What Is Your Level Of Alcohol Consumption? Occasional Information not available 02/14/2023 How Much Tobacco Do You Chew? None [id number] Information not available 05/02/2020 What Is Your Code Status? Full Code Information not available 02/14/2023 Do You Or Have You Ever Used E-cigarettes Or Vape? Never Used Electronic Cigarettes [id number] Information not available 05/02/2020 Where Do You Live? Apartment Elevator Information not available 02/19/2023 Legal Guardian? No Informati on not available 02/14/2023 Do You Have A Medical Power Of Senior Attorney? Yes [id number] Information not available 05/02/2020 What Was The [...] Used Smokeless Tobacco? Never Used Smokeless Tobacco [id number] Information not available 05/02/2020 Do You Use Any Illicit Or Recreational Drugs? No Information not available 02/14/2023 Has Tobacco Cessation Counseling Been Provided? No N/a As Pt. No Longer Smokes Information not available 02/19/2023 How Many Years Have You Smoked Tobacco? 40 [id number] Information not available 05/02/2020 Do You Have [...] Influenza, adjuvanted, quadrivalent, PF 2 [facility] 09:57:53 Influenza, adjuvanted, quadrivalent, PF 3 [facility]23 11:45:01 pneumococcal polysaccharide PPV23 8 completed Sade [facility] 05/07/2024 15:50:52 influenza, unspecified formulation 4 completed Sade [facility] 05/07/2024 15:51:08 SARS-COV-2 (COVID-19) vaccine, UNSPECIFIED 1 completed Sade [facility] 05/07/2024 15:51:23 SARS-COV-2 (COVID-19) vaccine, UNSPECIFIED 1 completed Sade [facility] 05/07/2024 15:51:30 SARS-COV-2 (COVID-19) vaccine, UNSPECIFIED 3 completed Sade [facility] 05/07/2024 15:51:38 Past Encounters Encounter ID Performer Location Encounter Start Date Encounter Closed Date Diagnosis/Indication Diagnosis SNOMED-CT Code Diagnosis ICD10 Code Diagnosis Note [id number] MARIE TORRES NP [address] [address] 06/22/2024 12:27:29 06/23/2024 09:31:59 Gastroesophageal reflux disease without esophagitis 230243485 K21.9 Using TUMS frequently for GERD/GI sx.Start pepcid 20 mg bidMonitor sx.If remain problemati c, consider trial of PPI [id number] Sonja Gibbs NP [address] [place] [address] 06/23/2024 13:31:14 06/24/2024 12:10:49 Asthenia 77232145 R53.1 remains with weakness to left leg and right armPT/OT eval and treat prn, off regular therapymon itor Constipation 01313161 K5 9.09 unclear why bowel meds decreased recently, now with 2 days of constipati on and continues with this every couple of days give mom 30 cc and bisacodyl 10 pr supp nowcont miralax 17 gms prn daily(sche duled)cydney a plus 2 tabs dailydc docusateMo nitor bowel function Spinal mg nosis of lumbar region 99497658 M48.062 With chronic back pain. hx of [...] Apple 06/24 for right shoulder painalso 07/29/24 [facility] at 1 pm. contPT/OT for strengthen ing, balance, gait training, safety and function prnremains barrington lift at this timeContin ue fall precaution s.Monitor for safety.Mon itor pain controlCel ebrex remains on hold. Pain in right arm 444004 004 M79.601 Denies trauma or injury. feels it is improving. has decreased rom and lymphedema for some time nowcontphy siatry prn consultedc onttyl 1000 mg po tid and lidocaine patch which is helpingsch eduled Oxycodone 10 mg po q 6 hours and dc prn doses for pain.cyclo benzaprine bidMonitor closely.se e above for management Osteoarthr itis of knee 017778731 M17.12 Z96.652 LTKR originally done on 02/11remains [...] 06/17monit or Chronic di astolic heart failure 154842288 I50.32 Pt says he never had any [...] fluid status, wts and labs. Diabetes mellitus 439145 09 E11.9 Last HgA1C was 7.9 in 11/2023.Fol lowed by endocrine at [facility].Contin uetrulicit y 1.5 weekly, tresiba 35 U qd, metformin 500 mg BID, januvia 25 mg qd, and SSIMonitor fingerstic ks TID and HgA1C as outpt. Essential hypertension 71541954 I10 stable 133/82Cont inue meds as above and amlodipine 2.5 mg qd.Monitor BP and labsDaily BPs ordered. Depressive disorder 6918 9007 F32.89 In hx.On no meds.Monit or mood.Psych consult prn. Benign pro static hyperplasia without outflow obstruction 533261035 N40.0 In hx, with some issues with retention at times.Cont inuetamsul osin 0.4 mg qd. [id number] Sonja Gibbs NP [address] [place] [address] 06/25/2024 10:45:21 06/28/2024 14:12:37 Asthenia [id number] R53.1 remains with weakness to left leg and right arm06/25 right arm and left knee brace on in am and off in pm per dr anderson's ordersPT/O T eval and treat prn, off regular therapymon itor Spinal mg nosis of lumbar region 01414057 M48.062 With chronic back pain. hx of oxycodone 10 mg QID at baseline and cont with fair management here While here a right shoulder xray and U/S done for swelling to lower right fingers both came back without fracture, dislocatio n, or thrombus. He is followed outpt by vascular for his lymphedema . MRI lumbar spine back 06/01/24 ordered outpt by pcp anamaria-geraldo avery 1 reltrolist hesis of L2 in relation [...] and off in pmfu after MRI 07/29/24 [facility] at 1 pm sched from outside provider contPT/OT for strengthen ing, balance, gait training, safety and function prnremains barrington lift at this timeContin ue fall precaution s.Monitor for safety.Mon itor pain controlCel ebrex remains on hold. Pain in right arm 339722 004 M79.601 Denies trauma or injury. feels [...] above for management Osteoarthr itis of knee 283881229 M17.12 Z96.652 LTKR originally done on 02/11remains [...] ext today on 06/17monit or Diabetes mellitus 312825 09 E11.9 Last HgA1C was 7.9 in 11/2023.Fol lowed by endocrine at [facility].with BS of 58 on 06/25 and similar on 06/23, remains asymptomat icContinue trulicity 1.5 weekly, metformin 500 mg BID, januvia 25 mg qd, and SSI06/25 decrease (degludec) tresiba 30 U qd to 26 unitsMonit or fingerstic ks TID and HgA1C as outpt. [id number] MARIE TORRES NP [facility] [address] [address] 07/01/2024 11:24:41 07/02/2024 11:53:48 Constipation 70750842 K59.09 Documented BM 06/24, 06/28Pt. states no [...] to scheduled dailyTo ER if condition worsens [id number] Sonja iGbbs NP [facility] [address] [address] 07/14/2024 13:30:49 07/16/2024 10:19:43 Diabetes mellitus 93685479 E11.9 Last HgA1C was 7.9 in 11/2023.Fol lowed by endocrine at [facility].with BS of 44 on 07/15 and similar in past, remains asymptomat icContinue trulicity 1.5 weekly, metformin 500 mg BID, januvia 25 mg qd, and SSI1/8 decrease (degludec) tresiba 26 U qd to 20 unitsMonit or fingerstic ks TID and HgA1C as outpt.of note was on 35 units of insulin in recent past Asthenia [id number] R53.1 remains with weakness to left leg and right arm12/20 right arm and left knee brace on in am and off in pm per dr anderson's ordersPT/O T eval and treat prn, off regular therapymon itor [id number] Sonja Gibbs NP [address] [address] 07/22/2024 14:17:32 07/23/2024 15:07:54 Constipation 80246692 K59.09 with regular bm per patient todayCurre ntly no abd. pain, no N/V.BS f0Njlpxphu e fluids, dietary fiber.cont senna plus 2 tabs qdmiralax dailyhouse bowel protocol prn Diabetes mellitus 039456 09 E11.9 Last HgA1C was 7.9 in 11/2023.Fol lowed by endocrine at [facility]5 weeklymetf ormin 500 mg BIDanuvia 25 mg qd, and SSI(deglud ec)tresiba 20 unitsMonit or fingerstic ks TID and HgA1C as outpt.(of note was on 35 units of insulin in recent past) Asthenia [id number] R53.1 remains with weakness to left leg and right arm, and today with right leg weaknessri ght arm and left knee brace on in am and off in pm per dr anderson's ordersPT/O T eval and treat prn, off regular therapymon itor Spinal mg nosis of lumbar region 85381791 M48.062 With chronic back pain. hx of [...] off in pmfu after MRI sched 5 [facility] at 1 pm sched from outside providerco ntPT/OT for strengthen ing, balance, gait training, safety and function prnremains barrington lift at this timeContin ue fall precaution s.Monitor for safety.Margareth mccullough pain controlCel ebrex remains on hold. Pain in right arm 009462 004 M79.601 Denies trauma or injury. feels [...] above for management Osteoarthr itis of knee 846890682 M17.12 Z96.652 LTKR originally done on 02/11remains [...] concernsmo nitor Chronic di astolic heart failure 918642143 I50.32 per hosp report of CHF.he never [...] fluid status, wts and labs. Essential hypertension 04914839 I10 stableCont inue meds as above and amlodipine 2.5 mg qd.Monitor BP and labsDaily BPs ordered. Depressive disorder 3548 9007 F32.89 In hx.On no meds.Monit or mood.Psych consult prn. Benign pro static hyperplasia without outflow obstruction 313521983 N40.0 In hx, with some issues with retention at times.Cont inuetamsul osin 0.4 mg qd. Gastroesop hageal reflux disease without esophagitis 391498499 K21.9 Using TUMS frequently for GERD/GI sx. resolvingc ontpepcid 20 mg bidMonitor sx.If remain problemati c, consider trial of PPI Nausea and vomiting 1693 1999 R11.2 resolvedse e belowzofra n 4 mg po q 6 hours prn n/v x 30 days Chronic ki dney disease stage 2 769297201 N18.2 At baseline.C ontinue to avoid nephrotoxi c meds as able.Monit or labs.Renal consult prn. Hypercholesterolemia 136 70571 E78.2 Continueat orvastatin 20 mg qdfenofibr ate 145 mg qdvascepa 2 g BID,ASA 81 mg qd.Monitor labs as outpt. Health Concerns Section Related Observation LastModified by Organization Detai ls LastModified Time None Recorded Concern Status LastModified by Organization Details LastModified Time None Recorded Payers Encounter Date Sequence Insurance Name Policy Number Policy Richardson Covered Member ID Richardson Member ID Guarantor Name 07/22/2024 1 [facility] - DOS ON OR AFTER 2022 - MEDICARE [place]VANTAGE [place] (MEDICARE REPLACEMENT/ADV ANTAGE - PPO) Carlos Cabrera [id number] Carlos Cabrera Notes Date Note Type Note Provider Name and Address Organization Details Recorded Time 07/22/2024 text/html Carlos is seen to day for a 90 day routine visit. Carlos was originally admitted on 05/06 after a hospitalization for CHF exacerbation, edema, and weakness. Since here at [facility]: He has worked with rehab, but then plateaued and is now on residential care here. He is no longer receiving therapy. He continues to need 2 max assist for transfers and requires a barrington lift. He continues to request to go home but reports he lives alone and can only get one [employer] for a few hours a day currently. Social work requested to talk with him about plan. Note: SS looked in to getting him a power wheelchair, but [employer] said as long as he was here he wouldn't qualify, but would be able to get one if he goes home. He states he has 5 hr/day of [employer] time and social work states he has 54 hrs/wk of [employer] time. He has had some constipation and [...] His pcp Dr Jacinto referred him to [facility] with appt 07/29/24 [...] He requests to go home and states rn social work is going to talk with him. Denies any constipation or abd pain. He is not able to move either leg much today when asked to raise his legs, which is a change as he was able to move the right leg more in past. He remains with weakness to the right arm and left leg. Sonja Gibbs NP [address] [facility], [address], [place], [address], [facility] [employer] 07/22/2024 18:36:19
--- OUTSIDE RECORDS SUMMARY | 2024-08-19 08:47 | XMS_ITS | Data Portability ---
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 Name Role Phone LANG HERRERA Primary Care Provider [phone] [facility] - 4TH FLOOR OTHER Assessment No [...] Address Organization Details Recorded Time Diabetes mellitus 18261000 Active 2019 YANG SWEET [address] [facility], [address], [place], [address], [facility] 0 09:29:33 Depressive disorder 96471649 Active 2019 YANG SWEET [address] [facility], [address], [place], [address], [facility] 0 09:29:39 Essential hypertensio n 85700232 Active 2019 YANG SWEET [address] , [address], [place], [address], [facility] 0 09:29:47 Hypercholes terolemia 79624092 Active 2019 YANG SWEET [address], [address], [place], [address], [facility] 0 09:29:57 Vitamin D deficiency 21945640 Active 2019 YANG SWEET [address], [address], [place], [address], [facility] 0 09:30:10 Insomnia 795055992 Active 2019 YANG SWEET [address], [address], [place], [address], [place] - [facility] 0 09:30:19 Spinal stenosis of lumbar region 04294090 Active 2019 YANG SWEET [address], [address], [place], [address], [place] - [facility] 0 09:30:43 Total knee replacement Active 2022 Sonja Gibbs NP [address] , [address], [place], [address], [facility] 3 09:12:50 Acute pain of joint of knee 5011811200839 04 Active 2022 Sonja Gibbs NP [address] [facility], [address], [place], [address], [facility] 3 09:14:53 Constipatio n 98693114 Active 2022 Sonja Gibbs NP [address] [facility], [address], [place], [address], [facility] 3 10:15:39 Osteoarthri tis of knee 944368738 Active 2022 Judie Camacho MD [address] [facility], [address], [place], [address], [facility] 3 20:37:14 Chronic kidney disease stage 1 571770795 Active 2022 Judie Camacho MD [address] [facility], [address], [place], [address], [facility] 3 20:53:16 Chronic diastolic heart failure 510980733 Active 2023 Judie Camacho MD [address] [facility], [address], [place], [address], [facility] 4 21:28:14 Chronic kidney disease stage 2 647554483 Active 2023 Judie Camacho MD [address] [facility], [address], [place], [address], [facility] 4 21:28:20 Problem Notes None recorded. Procedures Surgical History Date Name Laterality Status Provider Name and Address Organization Details Recorded Time laminotomy completed YANG SWEET [address] [facility], [address], [place], [address], [facility] 01/06/2020 09:27:06 Imaging Results None recorded. Procedure Notes None recorded. Medical Equipment None Reported. Allergies Allergen ID Allergen Name Allergen Category Reaction Reaction Severity Criticality Documentation Date Start Date Code Code System Note Provider Name and Address Organization Details Recorded Time 36260 Product containin g penicilli n and antibioti c (product) medicatio n rash Not available Not available 01/06/2020 11089 05 SNOMED Not Available Not Available Not [...] Updated DateTime 5 198.12 cm 22.4 kg/m2 99867.9 2 g 80 /min 18 /min 97.6 [degF] 97 % 97 % 108 mm[Hg] 74 mm[Hg] Sonja Gibbs NP [address] [facility], [address], [place], [address], [facility] 5 00:12:43 Date Recorded Body height Body mass index (BMI) Body weight Heart rate Respiratory rate Body temperature Oxygen saturation Oxygen saturation in Arterial blood by Pulse oximetry Systolic blood pressure Diastolic blood pressure Provider Name and Address Organization Details Last Updated DateTime 5 198.12 cm 22.4 kg/m2 97109.9 2 g 62 /min 18 /min 97.6 [degF] 97 % 97 % 117 mm[Hg] 82 mm[Hg] Sonja Gibbs NP [address], [address] , [facility] 5 14:18:18 Date Recorded Body height Body weight Body mass index (BMI) Heart rate Respiratory rate Body temperature Oxygen saturation Oxygen saturation in Arterial blood by Pulse oximetry Systolic blood pressure Diastolic blood pressure Provider Name and Address Organization Details Last Updated DateTime 5 198.12 cm 62904.1 8 g 21.5 kg/m2 78 /min 18 /min 98.6 [degF] 97 % 97 % 131 mm[Hg] 74 mm[Hg] Sonja Gibbs NP [address], [address], [facility] 5 08:04:57 Date Recorded Body height Body mass index (BMI) Body weight Heart rate Respiratory rate Body temperature Oxygen saturation Oxygen saturation in Arterial blood by Pulse oximetry Systolic blood pressure Diastolic blood pressure Provider Name and Address Organization Details Last Updated DateTime 5 198.12 cm 21.5 kg/m2 60234.1 8 g 78 /min 18 /min 98.6 [degF] 97 % 97 % 114 mm[Hg] 74 mm[Hg] Sonja Gibbs NP [address] [place] [address], [address] , [facility] 5 09:06:17 Date Recorded Body height Body mass index (BMI) Body weight Heart rate Respiratory rate Body temperature Oxygen saturation Oxygen saturation in Arterial blood by Pulse oximetry Systolic blood pressure Diastolic blood pressure Provider Name and Address Organization Details Last Updated DateTime 5 198.12 cm 21.8 kg/m2 84701.9 6 g 89 /min 18 /min 98.6 [degF] 96 % 96 % 103 mm[Hg] 75 mm[Hg] Sonja Gibbs NP [address], [address], [place], [address], [place] - [facility] 5 14:59:10 Social History Question Answer Notes LastModified by Organizat ion Details LastModified Time Tobacco Smoking Status Former Smoker Sonja Gibbs, DIAMODN [address], [address], [place], [address], [place] - [facility] 02/14/2023 10:11:47 Do You Have An Advance Directive? Yes FULL CODE No Dialysis And Okay To Use Nutrition-us e Hydration Information not available 02/14/2023 What Is Your Level Of Alcohol Consumption? Occasional Information not available 02/14/2023 How Much Tobacco Do You Chew? None [id number] Information not available 05/02/2020 What Is Your Code Status? Full Code Information not available 02/14/2023 Do You Or Have You Ever Used E-cigarettes Or Vape? Never Used Electronic Cigarettes [id number] Information not available 05/02/2020 Where Do You Live? Apartment Elevator Information not available 02/19/2023 Legal Guardian? No Informati on not available 02/14/2023 Do You Have A Medical Power Of Experimental Physicist? Yes [id number] Information not available 05/02/2020 What Was The [...] Used Smokeless Tobacco? Never Used Smokeless Tobacco [id number] Information not available 05/02/2020 Do You Use Any Illicit Or Recreational Drugs? No Information not available 02/14/2023 Has Tobacco Cessation Counseling Been Provided? No N/a As Pt. No Longer Smokes Information not available 02/19/2023 How Many Years Have You Smoked Tobacco? 40 [id number] Information not available 05/02/2020 Do You Have [...] Influenza, adjuvanted, quadrivalent, PF 2 [facility] 09:57:53 Influenza, adjuvanted, quadrivalent, PF 3 [facility] 11:45:01 pneumococcal polysaccharide PPV23 8 completed [facility] 05/07/2024 15:50:52 influenza, unspecified formulation 4 completed Sade [facility] 05/07/2024 15:51:08 SARS-COV-2 (COVID-19) vaccine, UNSPECIFIED 1 completed Sade [facility] 05/07/2024 15:51:23 SARS-COV-2 (COVID-19) vaccine, UNSPECIFIED 1 [facility] 15:51:30 SARS-COV-2 (COVID-19) vaccine, UNSPECIFIED 3 completed Sade [facility] 05/07/2024 15:51:38 Past Encounters Encounter ID Performer Location Encounter Start Date Encounter Closed Date Diagnosis/Indication Diagnosis SNOMED-CT Code Diagnosis ICD10 Code Diagnosis Note [id number] YANG SWEET [address] [address] 01/06/2020 09:16:35 01/10/2020 16:25:01 Spinal stenosis of lumbar region 79040032 M48.062 s/p L4-5 decompress ion 01/03/20 by [...] 10 days-appt already set up Diabetes mellitus 144709 09 E11.9 trulicity 1.5 mg q week on sundays lantus 45 units qd SSI januvia 100 mg qd monitor A1c monitor for s/s of hypo/hyper glycemia Essential hypertension 41495211 I10 amlodipine 5 mg qd benazepril 20 mg q hs and 40 mg q am HCTZ 50 mg qd monitor b/p and labs Hypercholesterolemia 136 21422 E78.2 atorvastat in 20 mg qd fenofibrat e 145 mg qd monitor labs Insomnia 294290450 G47.0 9 was on trazodone 50 mg [...] pt monitor mood Vitamin D deficiency 347 35776 E56.8 vitamin D3 1000 iu qd monitor levels [id number] [facility] Curtis [facility] [address] [place] [address] 01/07/2020 07:31:48 01/10/2020 16:31:47 Depressive disorder 75217814 F32.89 sertraline 50 mg dailywill monitor Diabetes mellitus 733852 09 E11.9 Humalog per sliding scaleJanuv ia 100 mg dailyLantu s 45 mg at hsmetformi n 1000 mg bidTrulici ty 1.5 mg weeklywill monitor Essential hypertension 12337450 I10 amlodipine 5 mg dailybenaz epril 40 mg dailyHCTZ 50 mg dailywill monitor Hypercholesterolemia 136 22771 E78.00 atorvastat in 20 mg dailyfenof ibrate 145 mg dailywill monitor Spinal mg nosis of lumbar region 65578829 M48.061 s/p recent decompress ion L4-5 cyclobenza tutu 10 mg tidnortrip tyline 25 mg bid diclofenac 75 mg bidgabapen tin 300 mg bid and 600 mg at hsoxycodon e 5-10 mg q4h prnfu neurosurge ryPT/OT [id number] PALAK BECKER, [employer]PART[employer] RN [facility] [address] [address] 01/11/2020 08:12:58 01/14/2020 14:03:39 Depressive disorder 86807414 F32.9 sertraline 50 mg daily will monitor Spinal mg nosis of lumbar region 78352307 M48.061 cyclobenza tutu 10 mg tid nortriptyl ine 25 mg bid diclofenac 75 mg bid gabapentin 300 mg bid and 600 mg at hs oxycodone 5-10 mg q4h prn fu neurosurge ry PT/OT [id number] PALAK BECKER, POSTPARTUM RN [facility] [address] [address] 01/14/2020 07:57:00 01/18/2020 09:07:39 Depressive disorder 81023593 F32.9 sertraline 50 mg daily will monitor Diabetes mellitus 133454 09 E11.9 monitor poc glucose Humalog per sliding scaleJanuv ia 100 mg daily Lantus 45 mg at hs metformin 1000 mg bid Trulicity 1.5 mg weekly will monitor Essential hypertension 27119809 I10 amlodipine 5 mg dailybenaz epril 40 mg daily HCTZ 50 mg daily will monitor Hypercholesterolemia 136 89031 E78.00 atorvastat in 20 mg daily fenofibrat e 145 mg daily will monitor Spinal mg nosis of lumbar region 10006329 M48.061 cyclobenza tutu 10 mg tid nortriptyl ine 25 mg bid diclofenac 75 mg bid gabapentin 300 mg bid and 600 mg at hs oxycodone 5-10 mg q4h prn fu neurosurge ry PT/OT [id number] YANG SWEET [facility] [address] 01/17/2020 08:06:37 01/25/2020 11:54:15 Spinal stenosis of lumbar region 96267738 M48.062 s/p L4-5 decompress ion 01/03/20 by Tana neville on 01/08/20-75 mg bid oxycodone 5-10 mg q 4 hrs prn cyclobenza tutu 10 mg tid neurontin 300 mg bid and 600 mg q hs follow up with surgeon on 02/15/20 and as needed Diabetes mellitus 543850 09 E11.9 trulicity 1.5 mg q week on sundays lantus 45 units qd januvia 100 mg qd follow up with PCP Essential hypertension 47476663 I10 amlodipine 5 mg qd benazepril 40 mg q am HCTZ 50 mg qd follow up with PCP Hypercholesterolemia 136 24576 E78.2 atorvastat in 20 mg qd fenofibrat e 145 mg qd follow up with PCP Insomnia 499253630 G47.0 9 follow up with PCP Depressive disorder 3548 9007 F32.89 zoloft 50 mg qd nortriptyl ine 25 mg q 12 hrs follow up with PCP Vitamin D deficiency 347 22966 E56.8 vitamin D3 1000 iu qd follow up with PCP [id number] Sonja Gibbs NP [address] [address] 02/14/2023 08:55:37 02/19/2023 09:34:58 Spinal stenosis of lumbar region 34368922 M48.062 s/p L4-5 decompress ion 01/03/20 by Roel knee surgery oxycodonec yclobenzap rine 10 mg bedtime prnmonitor pain Diabetes mellitus 923899 09 E11.9 cont home regimentru licity 1.5 sc at 0900 on fridaytre iba 55 units sc bedtimemet formin 500 mg er bidjardian ce 25 mg qdvascepa 2 g po bidmonitor bs bid x 3 days and reeval Essential hypertension 65951225 I10 hydralazin e 10 mg po tidbenazep ril 40 mg q am (per dc instructio ns and pt on both)lisin opril 20 mg po daily (per dc instructio ns and pt on both)furos emide 20 mg po dailymonit or bp, hr Hypercholesterolemia 136 40629 E78.2 atorvastat in 20 mg qdfenofibr ate 145 mg qd Insomnia 343654558 G47.0 9 follow up with PCP Depressive disorder 3548 9007 F32.89 lorazepam 1 mg po bidmonitor for anxiety Vitamin D deficiency 347 14211 E56.8 vitamin D3 1000 iu qd Acute pain of joint of knee 6559635951 16843 M25.569 sp post op 02/11/23 total knee [...] stregth, gait trainingcb c bmp weekly Constipation 31192253 K5 9.00 post op constipati oncont docusate 100 mg po bid*start milk of magnesia 30 cc po today and q 24 hours prn constipati on [id number] Judie Camacho MD [address] [address] 02/18/2023 19:53:10 02/20/2023 08:52:13 Spinal stenosis of lumbar region 16976936 M48.062 With chronic back pain. Uses oxycodone 5 mg TID at baseline and cyclobenza tutu 10 mg qhs prnPT/OT as above.Tabitha tor pain Diabetes mellitus 023250 09 E11.9 Last HgA1C was 7.9 on 01/31/23, BS have been good since hereReport eden doesn't use all his meds regularly due to cost.Vasu nue trulicity 1.5 weekly, tresiba 55 U qd, metformin 500 mg BID, and jardiance 25 mg qdMonitor fingerstic ks BID and HgA1C as outpt. Essential hypertension 00247096 I10 BP in good control.Co ntinue hydralazin e 10 mg TID, benazepril 40 mg qd, lisinopril 20 mg qd and furosemide 20 mg qd.Monitor BP and labsUnclea r why pt is on 2 SHANNON inhibitors , but will leave for PCP to manage. Vitamin D deficiency 347 11918 E56.8 Continue vitamin D3 1000 IU qdMonitor as outpt. Constipation 66901065 K5 9.09 Will add miralax 17 gms qd and continue docusate 100 mg BID and MOM prn.Monito r bowel function Osteoarthr itis of knee 364898900 M17.12 Z96.652 Recovering slowly after LTKR.Vasu nue [...] for safety.F/U with ortho on 02/27 as planned.Ke ep aquacel dressing in place until f/u Chronic ki dney disease stage 1 556966644 N18.1 At baseline.C ontinue to avoid nephrotoxi c meds as able.Monit or labs.Renal consult prn. Hyperlipidemia 01294268 E78.49 E78.1 Last lipids in system from 02/2021, trig were still high, but TC and HDL ok.Continu e atorvastat in 20 mg qd, fenofibrat e 145 mg qd and vascepa 2 g BID.Will get lipid profile while here, then f/u with PCP as outpt. Mixed anxi ety and depressive disorder 610487907 F41.8 Per pt. was still on sertraline , but per inpt notes, not filled at either [facility] or [facility] recently.C ontinue lorazepam 1 mg BID.monito r for anxiety [id number] Sonja Gibbs, DIAMOND [facility]OT [facility] [place] [address] 02/21/2023 10:00:03 02/25/2023 10:32:50 Osteoarthritis of knee 000941222 M17.12 Z96.652 LTKR originally done on ontinu [...] f/u Spinal mg nosis of lumbar region 55473764 M48.062 With chronic back pain.oxyco done 5 mg TID at baseline and cyclobenza tutu 10 mg qhs prn at baseline, now see above osteoarthr itis of knee for new pain regimenPT/ OT as above.Tabitha tor pain Diabetes mellitus 439331 09 E11.9 Last HgA1C was 7.9 on 01/31/23, BS have been good since hereContin uetrulicit y 1.5 weeklytres iba 55 U qdmetformi n 500 mg BID,jardia nce 25 mg qdMonitor fingerstic ks BID and HgA1C as outpt. Essential hypertension 04951560 I10 BP in good control. slightly high likely due to painContin uehydralaz ine 10 mg TIDbenazep ril 40 mg qdlisinopr il 20 mg qdfurosemi de 20 mg qd.Monitor BP and labsUnclea r why pt is on 2 SHANNON inhibitors , but will leave for PCP to manage. (pt on this regimen for many years and reports it works) Hyperlipidemia 89341436 E78.49 E78.1 Last lipids in system from 02/2021, trig were still high, but TC and HDL ok.Continu eatorvasta tin 20 mg qdfenofibr ate 145 mg qdvascepa 2 g BID.lipid profile pendingf/u with PCP as outpt. Mixed anxi ety and depressive disorder 379846943 F41.8 Per pt. was still on sertraline , but per inpt notes, not filled at either [facility] or [facility] recently.C ontinuelor azepam 1 mg BID.monito r for anxiety Vitamin D deficiency 347 03698 E56.8 Continuevi tamin D3 1000 IU qdMonitor as outpt. Constipation 93051814 K5 9.09 with hard stools per report latelymira lax 17 gms qddocusate 100 mg BIDMOM prn.Monito r bowel function Chronic ki dney disease stage 1 437919608 N18.1 At baseline.C ontinue to avoid nephrotoxi c meds as able.Monit or labs.Renal consult prn. [id number] Sonja Gibbs NP [address] [address] 02/24/2023 08:59:01 02/28/2023 10:19:51 Osteoarthritis of knee 592276039 M17.12 Z96.652 LTKR originally done on inc [...] ortho on 02/[address] [place]ana Apple [place] [place] appt with office as pt states his cheng states it is for PT)Keep aquacel dressing in place until f/u Diabetes mellitus 299169 09 E11.9 Last HgA1C was 7.9 on 01/31/23, BS have been good since hereContin uetrulicit y 1.5 weeklytres iba 55 U qdmetformi n 500 mg BID,jardia nce 25 mg qdMonitor fingerstic ks BID and HgA1C as outpt. Spinal mg nosis of lumbar region 78978031 M48.062 With chronic back pain.oxyco done 5 mg TID at baseline and cyclobenza tutu 10 mg qhs prn at baseline, now see above osteoarthr itis of knee for new pain regimenPT/ OT as above.Tabitha tor pain Essential hypertension 25154681 I10 BP slightly high likely due to painContin uehydralaz ine 10 mg TIDbenazep ril 40 mg qdlisinopr il 20 mg qdfurosemi de 20 mg qd.Monitor BP and labsUnclea r why pt is on 2 SHANNON inhibitors , but will leave for PCP to manage. (pt on this regimen for many years and reports it works) Hyperlipidemia 05023659 E78.49 E78.1 Last lipids in system from 02/2021, trig were still high, but TC and HDL ok.Continu eatorvasta tin 20 mg qdfenofibr ate 145 mg qdvascepa 2 g BID.lipid profile pendingf/u with PCP as outpt. Mixed anxi ety and depressive disorder 205945902 F41.8 Per pt. was still on sertraline , but per inpt notes, not filled at either [facility] or [facility] recently.C ontinuelor azepam 1 mg BID.monito r for anxiety Vitamin D deficiency 347 33047 E56.8 Continuevi tamin D3 1000 IU qdMonitor as outpt. Constipation 37343725 K5 9.09 with hard stools per report latelyincr ease miralax 17 gms qd to bidcont docusate 100 mg BIDMOM prn. q 24 hours if hard stools or no bmMonitor bowel function Chronic ki dney disease stage 1 153975987 N18.1 At baseline.C ontinue to avoid nephrotoxi c meds as able.Monit or labs.Renal consult prn. [id number] Sonja Gibbs NP [address] [address] 02/28/2023 08:24:09 03/03/2023 11:01:20 Osteoarthritis of knee 126569387 M17.12 Z96.652 LTKR originally done on oxy [...] and make 2 week appt today Constipation 00961776 K5 9.09 resolvingc ontmiralax 17 gms qd to biddocusat e 100 mg BIDMOM prn. q 24 hours if hard stools or no bmMonitor bowel function Diabetes mellitus 851426 09 E11.9 Last HgA1C was 7.9 on 01/31/23, BS have been good since hereContin uetrulicit y 1.5 weeklytres iba 55 U qdmetformi n 500 mg BID,jardia nce 25 mg qdMonitor fingerstic ks BID and HgA1C as outpt. Spinal mg nosis of lumbar region 95248030 M48.062 With chronic back pain.oxyco done 5 mg TID at baseline and cyclobenza tutu 10 mg qhs prn at baseline, now see above osteoarthr itis of knee for new pain regimenPT/ OT as above.Tabitha tor pain Essential hypertension 05722867 I10 BP slightly high likely due to pain, will monitor closelyCon tinuehydra lazine 10 mg TIDbenazep ril 40 mg qdlisinopr il 20 mg qdfurosemi de 20 mg qd.Monitor BP and labsUnclea r why pt is on 2 SHANNON inhibitors , but will leave for PCP to manage. (pt on this regimen for many years and reports it works) Hyperlipidemia 34901760 E78.49 E78.1 Last lipids in system from 02/2021, trig were still high, but TC and HDL ok.Continu eatorvasta tin 20 mg qdfenofibr ate 145 mg qdvascepa 2 g BID.lipid profile pendingf/u with PCP as outpt. Mixed anxi ety and depressive disorder 416065049 F41.8 Per pt. was still on sertraline , but per inpt notes, not filled at either [facility] or [facility] recently.C ontinuelor azepam 1 mg BID.monito r for anxiety Vitamin D deficiency 347 45338 E56.8 Continuevi tamin D3 1000 IU qdMonitor as outpt. Chronic ki dney disease stage 1 373589780 N18.1 At baseline.C ontinue to avoid nephrotoxi c meds as able.Monit or labs.Renal consult prn. [id number] Sonja Gibbs NP [address] [address] 03/03/2023 08:59:22 03/05/2023 08:05:09 Osteoarthritis of knee 406395825 M17.12 Z96.652 LTKR originally done on oxy [...] and make fu appt-still no note Constipation 84313543 K5 9.09 better on this regimencon tmiralax 17 gms qd to biddocusat e 100 mg BIDMOM prn. q 24 hours if hard stools or no bmMonitor bowel function Diabetes mellitus 127179 09 E11.9 Last HgA1C was 7.9 on 01/31/23, BS have been good since hereContin uetrulicit y 1.5 weeklytres iba 55 U qdmetformi n 500 mg BID,jardia nce 25 mg qdMonitor fingerstic ks BID and HgA1C as outpt. Spinal mg nosis of lumbar region 81750566 M48.062 With chronic back pain.oxyco done 5 mg TID at baseline and cyclobenza tutu 10 mg qhs prn at baseline, now see above with osteoarthr itis of knee for new pain regimenPT/ OT as above.Tabitha tor pain Essential hypertension 60392668 I10 BP slightly high likely due to pain now improving, will monitor closely 130s/70sCo ntinuehydr alazine 10 mg TIDbenazep ril 40 mg qdlisinopr il 20 mg qdfurosemi de 20 mg qd.Monitor BP and labsUnclea r why pt is on 2 SHANNON inhibitors , but will leave for PCP to manage. (pt on this regimen for many years and reports it works) Hyperlipidemia 00126125 E78.49 E78.1 Last lipids in system from 02/2021, trig were still high, but TC and HDL ok.Continu eatorvasta tin 20 mg qdfenofibr ate 145 mg qdvascepa 2 g BID.lipid profile pendingf/u with PCP as outpt. Mixed anxi ety and depressive disorder 448762421 F41.8 Per pt. was still on sertraline , but per inpt notes, not filled at either [facility] or [facility] recently.C ontinuelor azepam 1 mg BID.monito r for anxiety Chronic ki dney disease stage 1 276849450 N18.1 At baseline.C ontinue to avoid nephrotoxi c meds as able.Monit or labs.Renal consult prn. Edema of l ower extremity 950401374 R60.0 nsg and pt state bilateral feet swelling, now better this am after feet up all night, likely dependent as he is up more throughout the day 03/03 start compressio n stockings on in am off in pmmonitor [id number] Sonja Gibbs NP [place] [address] [place] [address] 03/06/2023 11:01:35 03/11/2023 09:41:09 Osteoarthritis of knee 922794233 M17.12 Z96.652 LTKR originally done on 02/11oxycodo [...] ortho on 02/[address] [place]ana Apple [place] [place] appt with office as pt states his cheng states it is for PT)fu with ortho and pcp outpt and PT services amended orderpt has pain and oxycodone not availablet ramadol 100 mg po q 6 hours prn x 24 hoursmonit or Constipation 55212363 K5 9.09 miralax 17 gms qd to bid, titrate as neededdocu sate 100 mg BIDMOM prn. q 24 hours if hard stools or no bmMonitor bowel function outpt with vna pcp Diabetes mellitus 005243 09 E11.9 Last HgA1C was 7.9 on 01/31/23, BS have been good since heretrulic ity 1.5 weeklytres iba 55 U qdmetformi n 500 mg BID,jardia nce 25 mg qdMonitor fingerstic ks BID and HgA1C as outpt.foll ow with pcp outpt Spinal mg nosis of lumbar region 39307787 M48.062 With chronic back pain.oxyco done 5 mg TID at baseline(s ee increased regimen above osteoarthr itis please ) and cyclobenza tutu 10 mg qhs prn at baselinePT /OT as above.Tabitha tor pain outpt with pcp Essential hypertension 51776283 I10 BP slightly high likely due to painContin uehydralaz ine 10 mg TIDbenazep ril 40 mg qdlisinopr il 20 mg qdfurosemi de 20 mg qd.Monitor BP and labsUnclea r why pt is on 2 SHANNON inhibitors , but will leave for PCP to manage outpt. (pt on this regimen for many years and reports it works) Hyperlipidemia 00770880 E78.49 E78.1 Last lipids in system from 02/2021, trig were still high, but TC and HDL ok.Continu eatorvasta tin 20 mg qdfenofibr ate 145 mg qdvascepa 2 g BID.lipid profile pendingf/u with PCP as outpt. Mixed anxi ety and depressive disorder 197519136 F41.8 Per pt. was still on sertraline , but per inpt notes, not filled at either [facility] or [facility] recently.C ontinuelor azepam 1 mg BID.monito r for anxiety outpt with pcp Vitamin D deficiency 347 28615 E56.8 Continuevi tamin D3 1000 IU qdMonitor as outpt with pcp Chronic ki dney disease stage 1 296025976 N18.1 At baseline.C ontinue to avoid nephrotoxi c meds as able.Monit or labs.Renal consult prn outpt Hypercholesterolemia 136 76532 E78.2 atorvastat in 20 mg qdfenofibr ate 145 mg qdfu with pcp outpt Insomnia 543295296 G47.0 9 follow up with PCP outpt [id number] Judie Camacho MD [address] [address] 05/07/2024 18:25:29 05/10/2024 08:52:32 Chronic diastolic heart failure 692365513 I50.32 Pt says he never had any [...] labs. Spinal mg nosis of lumbar region 42649213 M48.062 With chronic back pain. Uses oxycodone 10 mg QID at baseline (checked in [facility]).W ritten for 5 mg QID at hospital, will change back to baseline dose.Very deconditio amaury.Needs PT/OT for strengthen ing, balance, gait training, safety and function.C ontinue fall precaution s.Monitor for safety.Mon itor pain controlCel ebrex on hold. Hypercholesterolemia 136 71039 E78.2 Continue atorvastat in 20 mg qd, fenofibrat e 145 mg qd, vascepa 2 g BID, and ASA 81 mg qd.Monitor labs as outpt. Essential hypertension 39273055 I10 SBP a little high yesterday, not checked todayConti nue meds as above and amlodipine 2.5 mg qd.Monitor BP and labsDaily BPs ordered. Diabetes mellitus 435727 09 E11.9 Last HgA1C was 7.9 in 11/2023.Fol lowed by endocrine at [facility].Contin ue trulicity 1.5 weekly, tresiba 35 U qd, metformin 500 mg BID, januvia 25 mg qd, and SSITresiba not yet delivered, ok to use Lantus instead tonight.Mo nitor fingerstic ks TID and HgA1C as outpt. Depressive disorder 8338 9007 F32.89 In hx.On no meds.Monit or mood.Psych consult prn. Chronic ki dney disease stage 2 058397008 N18.2 At baseline.C ontinue to avoid nephrotoxi c meds as able.Monit or labs.Renal consult prn. Benign pro static hyperplasia without outflow obstruction 342030840 N40.0 In hx, with some issues with retention at times.Cont inue tamsulosin 0.4 mg qd. [id number] MARIE TORRES NP [address] [address] 05/13/2024 13:47:03 05/14/2024 10:52:03 Chronic diastolic heart failure 986367717 I50.32 Pt says he never had any [...] 3 Spinal mg nosis of lumbar region 68831783 M48.062 With chronic back pain. Uses [facility] 10 mg [facility]W karolineten for 5 mg QID at hospital, will change back to baseline dose.Very deconditio amaury.Needs PT/OT for strengthen ing, balance, gait training, safety and function.C ontinue fall precaution s.Monitor for safety.Frir pain controlCel ebrex on hold. Diabetes mellitus 026955 09 E11.9 Last HgA1C was 7.9 in 11/2023.Fol lowed by endocrine at [facility].Contin ue trulicity 1.5 weekly, tresiba 35 U qd, metformin 500 mg BID, januvia 25 mg qd, and SSITresiba not yet delivered, ok to use Lantus instead tonight.Mo nitor fingerstic ks TID and HgA1C as outpt. Essential hypertension 79222652 I10 SBP a little high yesterday, not checked todayConti nue meds as above and amlodipine 2.5 mg qd.Monitor BP and labsDaily BPs ordered. Chronic ki dney disease stage 2 973299666 N18.2 At baseline.C ontinue to avoid nephrotoxi c meds as able.Monit or labs.Renal consult prn. Hypercholesterolemia 136 53127 E78.2 Continue atorvastat in 20 mg qd, fenofibrat e 145 mg qd, vascepa 2 g BID, and ASA 81 mg qd.Monitor labs as outpt. Depressive disorder 3548 9007 F32.89 In hx.On no meds.Monit or mood.Psych consult prn. Benign pro static hyperplasia without outflow obstruction 447335026 N40.0 In hx, with some issues with retention at times.Cont inue tamsulosin 0.4 mg qd. Pain in right arm 024007 004 M79.601 New onset, x 2-3d. Denies trauma or injury.Exa m limited due to painPMR assessed as well.Plan -Check x rays and venous USOxycodon e already available for pain.Monit or closely. [id number] Sonja Gibbs NP [address] [address] 05/14/2024 11:54:20 05/17/2024 11:03:10 Chronic diastolic heart failure 910964524 I50.32 Pt's main c/o was and continues [...] mg qd.Also on Trulicity, which is cardioprot ective.Chegn ears euvolemic. Monitor resp. status, fluid status, wts and labs.Labs q friday x 3, 11.8 labs pending today Spinal mg nosis of lumbar region 72639136 M48.062 With chronic back pain. hx of oxycodone 10 mg QID at baseline (POSTPARTUM RN checked in [facility]). and changed to baseline dose as hosp decreased it to 5mg QID prnVery deconditio amaury.Needs PT/OT for strengthen ing, balance, gait training, safety and function.C ontinue fall precaution s.Monitor for safety.Mon itor pain controlCel ebrex on hold. Diabetes mellitus 690800 09 E11.9 BS 127 today and stable, [facility] HgA1C was 7.9 in 11/2023.[place] 1.[place] weekly, tresiba 35 U qd, metformin 500 mg BID, januvia 25 mg qd, and SSIMonitor fingerstic ks TID and HgA1C as outpt. Essential hypertension 75955151 I10 bp stable 128/72 todayConti nue meds as above and amlodipine 2.5 mg qd.Monitor BP and labsDaily BPs ordered. Chronic ki dney disease stage 2 131512323 N18.2 At baseline.C ontinue to avoid nephrotoxi c meds as able.Monit or labs.Renal consult prn. Hypercholesterolemia 136 49557 E78.2 Continueat orvastatin 20 mg qd, fenofibrat e 145 mg qd, vascepa 2 g BID, and ASA 81 mg qd.Monitor labs as outpt. Depressive disorder 3548 9007 F32.89 In hx.On no meds.Monit or mood.Psych consult prn. Benign pro static hyperplasia without outflow obstruction 350793028 N40.0 In hx, with some issues with retention at times.Cont inuetamsul osin 0.4 mg qd. Pain in right arm 302834 004 M79.601 New onset, x 2-3d. Denies trauma or injury. feels it is improvingx rays and venous US to right arm negative for acute findingsOx ycodone for pain.05/14 seen by physiatry on 05/13 rec: tyl 1000 mg po tid and lidocaine patch, will agree and order todayMonit or closely. Dizziness 518417928 R42 pt reports dizziness today directly related to the room being hot05/14 requests to move room, decrease heat or leave facility, nursing aware and heat reduced, vitals and BS stablemoni tor closely for improvemen t or changes Tinea pedis 4342596 B35. 3 clotrimazo le 1 % cream bid x 10 daysmonito r [id number] Sonja Gibbs NP [address] [address] 05/20/2024 07:43:04 05/21/2024 11:07:38 Pain in right arm 452134248 M79.601 New onset, x 2-3d. Denies trauma or injury. feels it is improvingx rays and venous US to right arm negative for acute findingsOx ycodone for pain.physi atry rec tyl 1000 mg po tid and lidocaine patch which is helping but remains with pain. will reconsult1 07/20 will increase cyclobenza tutu to bid todayMonit or closely. Tinea pedis 6301276 B35. 3 improving slightlycl otrimazole 1 % cream bid x 10 daysmonito r Chronic di astolic heart failure 378526433 I50.32 Pt's main c/o was and continues [...] x1 Spinal mg nosis of lumbar region 08887241 M48.062 With chronic back pain. hx of oxycodone 10 mg QID at baseline (POSTPARTUM RN checked in [facility] home dose).cont PT/OT for strengthen ing, balance, gait training, safety and function.C ontinue fall precaution s.Monitor for safety.Mon itor pain controlCel ebrex on hold. Diabetes mellitus 748044 09 E11.9 BS 102-182 stable, [facility] HgA[facility]C was 7.9 [facility] 1.5 weekly, tresiba 35 U qd, metformin 500 mg BID, januvia 25 mg qd, and SSIMonitor fingerstic ks TID and HgA1C as outpt. Essential hypertension 49393639 I10 bp stable 126/69 todayConti nue meds as above and amlodipine 2.5 mg qd.Monitor BP and labsDaily BPs ordered. Chronic ki dney disease stage 2 686253640 N18.2 At baseline.C ontinue to avoid nephrotoxi c meds as able.Monit or labs.Renal consult prn. Hypercholesterolemia 136 88416 E78.2 Continueat orvastatin 20 mg qd, fenofibrat e 145 mg qd, vascepa 2 g BID, and ASA 81 mg qd.Monitor labs as outpt. Depressive disorder 6859 9774 F32.89 In hx.On no meds.Monit or mood.Psych consult prn. Benign pro static hyperplasia without outflow obstruction 102509387 N40.0 In hx, with some issues with retention at times.Cont inuetamsul osin 0.4 mg qd. [id number] Sonja Gibbs, DIAMOND [facility] [address] [address] 05/27/2024 13:47:02 05/28/2024 10:07:06 Pain in right arm 893542750 M79.601 Denies trauma or injury. feels it is improving. refuses additional meds for pain todayx rays and venous US to right arm negative for acute findingsOx ycodone for pain.physi atry rec tyl 1000 mg po tid and lidocaine patch which is helpingcyc lobenzapri ne to bid todayMonit or closely. Tinea pedis 6288887 B35. 3 improvingc lotrimazol e 1 % cream bid x 10 days to completemo nitor Chronic di astolic heart failure 935612295 I50.32 Pt's main c/o was and continues [...] above Spinal mg nosis of lumbar region 01344242 M48.062 With chronic back pain. hx of oxycodone 10 mg QID at baseline, will cont(POSTPARTUM RN checked in [facility] home dose).cont PT/OT for strengthen ing, balance, gait training, safety and function.C ontinue fall precaution s.Monitor for safety.Mon itor pain controlCel ebrex remains on hold. Diabetes mellitus 358376 09 E11.9 BS 100s-occ 200s stable, [facility] outptLast HgA1C was 7.9 in 11/2023.Con [place] 1.5 weekly, tresiba 35 U qd, metformin 500 mg BID, januvia 25 mg qd, and SSIMonitor fingerstic ks TID and HgA1C as outpt. Essential hypertension 45702424 I10 bp stableCont inue meds as above and amlodipine 2.5 mg qd.Monitor BP and labs Chronic ki dney disease stage 2 597079070 N18.2 At baseline.C ontinue to avoid nephrotoxi c meds as able.Monit or labs.Renal consult prn. Hypercholesterolemia 136 59983 E78.2 Continueat orvastatin 20 mg qd, fenofibrat e 145 mg qd, vascepa 2 g BID, and ASA 81 mg qd.Monitor labs as outpt. Depressive disorder 3548 9007 F32.89 a little down today, wishes his progress was futher, but reports okayOn no meds.Monit or mood.Psych consult prn. Benign pro static hyperplasia without outflow obstruction 527122353 N40.0 In hx, with some issues with retention at times.Cont inuetamsul osin 0.4 mg qd. Asthenia 53506871 R53.1 remains with weakness to legs and armsPT/OT eval and treatmonit or [id number] Sonja Gibbs NP [address] [address] 05/31/2024 10:47:07 06/02/2024 08:35:29 Pain in right arm 583172176 M79.601 Denies trauma or injury. feels it is improving. refuses additional meds for pain today but requests the oxycodone 10 mg scheduled instead of prnx rays and venous US to right arm negative for acute oaxcyvnx60 /25 sched Oxycodone 10 mg po q 6 hours and dc prn doses for pain.physi atry rec tyl 1000 mg po tid and lidocaine patch which is helpingcyc lobenzapri ne bidMRI sched for 06/01 of back and hoping to get more info on status and diagnosisM onitor closely. Asthenia 10485185 R53.1 remains with weakness to legs and armsPT/OT eval and treatmonit or Depressive disorder 3548 9007 F32.89 a little down today, wishes his progress was futher, but reports okayOn no meds.Monit or mood.Psych consult prn. Chronic di astolic heart failure 555677274 I50.32 Pt's main c/o was and continues [...] stable Spinal mg nosis of lumbar region 33154940 M48.062 With chronic back pain. hx of oxycodone 10 mg QID at baseline, will cont(POSTPARTUM RN checked in [facility] home dose). MRI sched for 06/01 of back and hoping to get more info on status and diagnosis contPT/OT for strengthen ing, balance, gait training, safety and function.C ontinue fall precaution s.Monitor for safety.Mon itor pain controlCel ebrex remains on hold. Diabetes mellitus 376846 09 E11.9 BS 100s-occ 200s stable, [facility] outptLast HgA1C was 7.9 in 11/2023.[place] 1.5 weekly, tresiba 35 U qd, metformin 500 mg BID, januvia 25 mg qd, and SSIMonitor fingerstic ks TID and HgA1C as outpt. Essential hypertension 10500992 I10 bp stableCont inue meds as above and amlodipine 2.5 mg qd.Monitor BP and labs Chronic ki dney disease stage 2 808789357 N18.2 At baseline.C ontinue to avoid nephrotoxi c meds as able.Monit or labs.Renal consult prn. [id number] Sonja Gibbs, [facility] [address] 06/17/2024 08:35:00 06/18/2024 14:22:00 Spinal stenosis of lumbar region 86277087 M48.062 With chronic back pain. hx of [...] His pcp Dr Jacinto referred him to [facility] with appt 07/29/24 [...] remains on hold. Pain in right arm 157443 004 M79.601 Denies trauma or injury. feels it is improving. has decreased rom and lymphedema for some time nowcontphy siatry prn consultedc onttyl 1000 mg po tid and lidocaine patch which is helpingsch ed Oxycodone 10 mg po q 6 hours and dc prn doses for pain.cyclo benzaprine bidMRI sched for 06/01 of back results pending. nsg obtainingM onitor closely. Asthenia 79622263 R53.1 remains with weakness to left leg and right armPT/OT eval and treat prn, off regular therapymon itor Osteoarthr itis of knee 424851423 M17.12 Z96.652 LTKR originally done on 02/11remains [...] today on 06/17monit or Nausea and vomiting 1693 1999 R11.2 likely related to constipati onsee belowzofra n 4 mg po q 6 hours prn n/v x 30 days Constipation 51484204 K5 9.09 unclear why bowel meds decreased recently, now with 6 days of constipati onmiralax 17 gms prn qd, titrate as neededdocu sate 100 mg daily06/17 MOM [facility] and give bisacodyl supp if no results in a few hoursMonit or bowel function outpt with vna pcp [id number] MARIE TORRES NP [facility] [address] 06/22/2024 12:27:29 06/23/2024 09:31:59 Gastroesophageal reflux disease without esophagitis 453413908 K21.9 Using TUMS frequently for GERD/GI sx.Start pepcid 20 mg bidMonitor sx.If remain problemati c, consider trial of PPI [id number] Sonja Gibbs NP [facility] [address] [address] 06/23/2024 13:31:14 06/24/2024 12:10:49 Asthenia 70417616 R53.1 remains with weakness to left leg and right armPT/OT eval and treat prn, off regular therapymon itor Constipation 40237044 K5 9.09 unclear why bowel meds decreased recently, now with 2 days of constipati on and continues with this every couple of days give mom 30 cc and bisacodyl 10 pr supp nowcont miralax 17 gms prn daily(sche duled)cydney a plus 2 tabs dailydc docusateMo nitor bowel function Spinal mg nosis of lumbar region 61274525 M48.062 With chronic back pain. hx of [...] Apple 06/24 for right shoulder painalso 07/29/24 [facility] at 1 pm. contPT/OT for strengthen ing, balance, gait training, safety and function prnremains barrington lift at this timeContin ue fall precaution s.Monitor for safety.Mon itor pain controlCel ebrex remains on hold. Pain in right arm 979366 004 M79.601 Denies trauma or injury. feels it is improving. has decreased rom and lymphedema for some time nowcontphy siatry prn consultedc onttyl 1000 mg po tid and lidocaine patch which is helpingsch eduled Oxycodone 10 mg po q 6 hours and dc prn doses for pain.cyclo benzaprine bidMonitor closely.se e above for management Osteoarthr itis of knee 466018277 M17.12 Z96.652 LTKR originally done on 02/11remains [...] 06/17monit or Chronic di astolic heart failure 053379271 I50.32 Pt says he never had any [...] fluid status, wts and labs. Diabetes mellitus 726139 09 E11.9 Last HgA1C was 7.9 in 11/2023.Fol lowed by endocrine at [facility].Contin uetrulicit y 1.5 weekly, tresiba 35 U qd, metformin 500 mg BID, januvia 25 mg qd, and SSIMonitor fingerstic ks TID and HgA1C as outpt. Essential hypertension 91396388 I10 stable 133/82Cont inue meds as above and amlodipine 2.5 mg qd.Monitor BP and labsDaily BPs ordered. Depressive disorder 3548 9007 F32.89 In hx.On no meds.Monit or mood.Psych consult prn. Benign pro static hyperplasia without outflow obstruction 048358839 N40.0 In hx, with some issues with retention at times.Cont inuetamsul osin 0.4 mg qd. [id number] Sonja Gibbs NP [address] [address] 06/25/2024 10:45:21 06/28/2024 14:12:37 Asthenia 10374646 R53.1 remains with weakness to left leg and right arm06/25 right arm and left knee brace on in am and off in pm per dr anderson's ordersPT/O T eval and treat prn, off regular therapymon itor Spinal mg nosis of lumbar region 00647384 M48.062 With chronic back pain. hx of [...] and off in pmfu after MRI 07/29/24 [facility] at 1 pm sched from outside provider contPT/OT for strengthen ing, balance, gait training, safety and function prnremains barrington lift at this timeContin ue fall precaution s.Monitor for safety.Margareth mccullough pain controlCel ebrex remains on hold. Pain in right arm 374118 004 M79.601 Denies trauma or injury. feels [...] above for management Osteoarthr itis of knee 269134524 M17.12 Z96.652 LTKR originally done on 02/11remains [...] ext today on 06/17monit or Diabetes mellitus 260117 09 E11.9 Last HgA1C was 7.9 in 11/2023.Fol lowed by endocrine at [facility].with BS of 58 on 06/25 and similar on 06/23, remains asymptomat icContinue trulicity 1.5 weekly, metformin 500 mg BID, januvia 25 mg qd, and SSI06/25 decrease (degludec) tresiba 30 U qd to 26 unitsMonit or fingerstic ks TID and HgA1C as outpt. [id number] MARIE TORRES NP [address] [address] 07/01/2024 11:24:41 07/02/2024 11:53:48 Constipation 48507086 K59.09 Documented BM 06/24, 06/28Pt. states no [...] to scheduled dailyTo ER if condition worsens [id number] Sonja Gibbs NP [facility] [address] [address] 07/14/2024 13:30:49 07/16/2024 10:19:43 Diabetes mellitus 24103776 E11.9 Last HgA1C was 7.9 in 11/2023.Fol lowed by endocrine at [facility].with BS of 44 on 07/15 and similar in past, remains asymptomat icContinue trulicity 1.5 weekly, metformin 500 mg BID, januvia 25 mg qd, and SSI1/8 decrease (degludec) tresiba 26 U qd to 20 unitsMonit or fingerstic ks TID and HgA1C as outpt.of note was on 35 units of insulin in recent past Asthenia 79176299 R53.1 remains with weakness to left leg and right arm12/20 right arm and left knee brace on in am and off in pm per dr anderson's ordersPT/O T eval and treat prn, off regular therapymon itor [id number] Sonja Gibbs NP [facility] [address] [address] 07/22/2024 14:17:32 07/23/2024 15:07:54 Constipation 54734366 K59.09 with regular bm per patient todayCurre ntly no abd. pain, no N/V.BS v4Fftywoii e fluids, dietary fiber.cont senna plus 2 tabs qdmiralax dailyhouse bowel protocol prn Diabetes mellitus 392164 09 E11.9 Last HgA1C was 7.9 in 11/2023.Fol lowed by endocrine at [facility] with multiple low BS in amContinue trulicity 1.5 weeklymetf ormin 500 mg BIDanuvia 25 mg qd, and SSI(deglud ec)tresiba 20 unitsMonit or fingerstic ks TID and HgA1C as outpt.(of note was on 35 units of insulin in recent past) Asthenia 26180192 R53.1 remains with weakness to left leg and right arm, and today with right leg weaknessri ght arm and left knee brace on in am and off in pm per dr anderson's ordersPT/O T eval and treat prn, off regular therapymargareth mccullough Spinal mg nosis of lumbar region 90136733 M48.062 With chronic back pain. hx of [...] in pmfu after MRI sched // 5 [facility] at 1 pm sched from outside providerco ntPT/OT for strengthen ing, balance, gait training, safety and function prnremains barrington lift at this timeContin ue fall precaution s.Monitor for safety.Margareth mccullough pain controlCel ebrex remains on hold. Pain in right arm 052934 004 M79.601 Denies trauma or injury. feels [...] above for management Osteoarthr itis of knee 181094436 M17.12 Z96.652 LTKR originally done on 02/11remains [...] concernsmo nitor Chronic di astolic heart failure 645000276 I50.32 per hosp report of CHF.he never [...] fluid status, wts and labs. Essential hypertension 97483713 I10 stableCont inue meds as above and amlodipine 2.5 mg qd.Monitor BP and labsDaily BPs ordered. Depressive disorder 3548 9007 F32.89 In hx.On no meds.Monit or mood.Psych consult prn. Benign pro static hyperplasia without outflow obstruction 895207080 N40.0 In hx, with some issues with retention at times.Cont inuetamsul osin 0.4 mg qd. Gastroesop hageal reflux disease without esophagitis 274837864 K21.9 Using TUMS frequently for GERD/GI sx. resolvingc ontpepcid 20 mg bidMonitor sx.If remain problemati c, consider trial of PPI Nausea and vomiting 1692 1999 R11.2 resolvedse e belowzofra n 4 mg po q 6 hours prn n/v x 30 days Chronic ki dney disease stage 2 635420899 N18.2 At baseline.C ontinue to avoid nephrotoxi c meds as able.Monit or labs.Renal consult prn. Hypercholesterolemia 136 10743 E78.2 Continueat orvastatin 20 mg qdfenofibr ate 145 mg qdvascepa 2 g BID,ASA 81 mg qd.Monitor labs as outpt. [id number] Sonja Gibbs NP [address] [place] [place] [address] 07/30/2024 08:03:45 08/03/2024 12:50:06 Spinal stenosis of lumbar region 50902257 M48.062 With chronic back pain and weakness [...] in pmfu after cervical MRI sched 07/3107/29/24 [facility] with rec:neuros urgery consult with Dr eSrna 07/30 referral to [facility] ordered as recommende d, has MRI today. contPT/OT prn, currently not working with himrandal [employer] lift at this timeContin ue fall precaution s.Monitor for safety.Mon itor pain controlCel ebrex remains on hold. Asthenia 73620013 R53.1 remains with weakness to left leg and right arm, and today with right leg weaknessri ght arm sling and left knee brace on in am and off in pm per dr anderson's ordersPT/O T eval and treat prn, off regular jean mccullough Pain in right arm 022977 004 M79.601 Denies trauma or injury. feels [...] above for management Osteoarthr itis of knee 874334219 M17.12 Z96.652 LTKR originally done on 02/11remains [...] lower ext neg for acute concernsmo nitor [id number] [facility] [address] 08/04/2024 09:05:47 08/06/2024 09:42:06 Spinal stenosis of lumbar region 92962554 M48.062 With chronic back pain and weakness [...] rec for minimally invasive spine center at [facility] appt 08/0907/29/24 [facility] with rec:neuros urgery [...] of c3 to the superior endplate of c5.[facility] sent pt referral:rich rios was rec for minimally invasive spine center at [facility] appt 08/09 contPT/OT prn, currently not working with [employer] at this timeContin ue fall precaution s.Monitor for safety.Mon itor pain control see belowCeleb sandip remains on hold. Asthenia 38804613 R53.1 remains with weakness to left leg and right arm, and today with right leg weaknessri ght arm sling and left knee brace on in am and off in pm per dr anderson's ordersPT/O T eval and treat prn, off regular therapymon itor Pain in right arm 931733 004 M79.601 Denies trauma or injury. feels [...] above for management Osteoarthr itis of knee 263711114 M17.12 Z96.652 LTKR originally done on 02/11remains [...] neg for acute concernsmo nitor Diabetes mellitus 824651 09 E11.9 Last HgA1C was 7.9 in 11/2023.Fol lowed by endocrine at [facility] with multiple low BS in am of 54, recheck BS came upContinue januvia 25 [facility] 1.5 weekly08/04 increase metformin 500 mg BID to 1000 mg po bid08/04 dc tresiba 20 units qhs for low BSMonitor fingerstic ks TID and HgA1C as outpt.(of note was on 35 units of insulin in recent past) Chronic pain [id number] G8 9.29 followed by pain management here08/04 start gabapentin 100 mg po bidContinu eoxycodone 10 mg qid for painceleco xib 200 mg BIDAPAP 650 mg TID and q 4 hrs prn (NTE 3000 mg/d),Cont in fall precaution s.Monitor for safety. Pain of left eye [id number] 001 68027 H57.12 reports left eye pain related to dropper touching his eye last nightno injuries or abnormalit y of eye notedwarm compress given at visit for comfort.mo nitor [id number] Sonja Gibbs, DIAMOND [address] [place] [address] 08/09/2024 14:58:20 08/10/2024 11:35:43 Diabetes mellitus [id number] E11.9 Last HgA1C was 7.9 in 11/2023.Fol lowed by endocrine at [facility] with multiple low BS in am of 47, recheck BS came up to 111Continu ejanuvia 25 mg qdSSImetfo rmin 1000 mg po bid2/3 dc trulicity 1.5 weekly(not e tresiba recently dc'd)Monit or fingerstic ks TID and HgA1C as outpt.(of note was on 35 units of long acting insulin in recent past) Chronic pain [id number] G8 9.29 followed by pain management herecontga bapentin 100 mg po bidoxycodo ne 10 mg qid for painceleco xib 200 mg BIDAPAP 650 mg TID and q 4 hrs prn (NTE 3000 mg/d),Cont inue fall precaution s.Monitor for safety. Spinal mg nosis of lumbar region [id number] M48.062 With chronic back pain and weakness [...] rec for minimally invasive spine center at [facility] appt 2/3 07/29/24 [facility] with rec:neuros urgery consult with Dr Serna 07/30 MRI showing: severe spondylosi s of [...] of c3 to the superior endplate of c5.[facility] sent pt referral:rich rios was rec for minimally invasive spine center at [facility] appt 08/09 08/04 referral to [facility] ordered as recommende d with MRI results back today 08/04 from 07/30 08/09 awaiting consult from spine center2/ fu appoint at minimally invasive spine center to discuss options08/[address] Aleisha padilla (neurosurg [place]) contPT/OT prn, currently not working with himremTal Medical lift at this timeContin ue fall precaution s.Monitor for safety.Mon itor pain control see belowCeleb sandip remains on hold. Asthenia [id number] R53.1 remains with weakness to left leg and right arm, and today with right leg weaknessri ght arm sling and left knee brace on in am and off in pm per dr anderson's ordersPT/O T eval and treat prn, off regular therapymon itor Pain in right arm [id number] 004 M79.601 Denies trauma or injury. feels it is improving. has decreased rom and lymphedema for some time now prior to hospitaliz ationcontp hysiatry prn consultedt yl 1000 mg po tidlidocai ne patch which is helpingsch eduled Oxycodone 10 mg po q 6 hourscyclo benzaprine bidright arm sling on in am and off in pm per dr anderson's orders and MRI cervical spine as ordered by ambika, as aboveMonit or closely.se e above for management Osteoarthr itis of knee [id number] M17.12 Z96.652 LTKR originally done on 02/11remains with decreased strength and rom to left knee/leg, barrington lift at this timegabape ntin 100 mg po bidoxycodo ne 10 mg qid for painceleco xib 200 [...] Member ID Richardson Member ID Guarantor Name 07/14/2024 1 [facility] - DOS ON OR AFTER 2022 - MEDICARE [place]VANTAGE [place] (MEDICARE REPLACEMENT/ADV ANTAGE - PPO) Carlos Cabrera [id number] Carlos Cabrera 07/22/2024 1 [facility] - DOS ON OR AFTER 2022 - [place]IC[place]/ADV ANTAGE - PPO) Carlos Cabrera [id number] Carlos Cabrera 07/30/2024 1 [facility] - DOS ON OR AFTER 2022 - [place]/ADV ANTAGE - PPO) Carlos Cabrera [id number] Carlos Cabrera 08/04/2024 1 [facility] - DOS ON OR AFTER 2022 - [place]/ADV ANTAGE - PPO) Carlos Cabrera [id number] Carlos Cabrera 08/09/2024 1 [facility] - DOS ON OR AFTER 2022 - [place]IC[place]/ADV ANTAGE - PPO) Carlos Cabrera [id number] Carlos Cabrera Notes Date Note Type Note Provider Name and Address Organization Details Recorded Time 07/14/2024 text/html Carlos is seen to day [...] and requests to go home and states clinical social work therapist is going to talk with him. A discussion is had about how he is a 2 assist/barrington lift and how he would get the help at home. He states I dont know, but Ill figure it out . Sonja Gibbs, POSTPARTUM RN [address] [facility], [address], [place], [address], [facility] Mevvy 07/16/2024 00:19:10 07/22/2024 text/html Carlos is seen to day for a 90 day routine visit. Carlos was originally admitted on 05/06 after a hospitalization for CHF exacerbation, edema, and weakness. Since here at [facility]: He has worked with rehab, but then plateaued and is now on residential care here. He is no longer receiving therapy. He continues to need 2 max assist for transfers and requires a barrington lift. He continues to request to go home but reports he lives alone and can only get one [employer] for a few hours a day currently. Social work requested to talk with him about plan. Note: SS looked in to getting him a power wheelchair, but [facility] said as long as he was here he wouldn't qualify, but would be able to get one if he goes home. He states he has 5 hr/day of [employer] time and social work states he has 54 hrs/wk of [employer]LL[employer] time. He has had some constipation and [...] His pcp Dr Jacinto referred him to [facility] with appt 07/29/24 at 1pm per pt. He was also seen by pain management here. He is followed by vascular and NEOS Dr Apple for the weakness. An MRI of lumbar spine was done and now [facility] requesting MRI of cervical neck for ?relation to the right arm weakness and numbness scheduled for 08/01/24. OVerall -On exam, Carlos is in bed in NAD. He requests to go home and states clinical social work therapist is going to talk with him. Denies any constipation or abd pain. He is not able to move either leg much today when asked to raise his legs, which is a change as he was able to move the right leg more in past. He remains with weakness to the right arm and left leg. Sonja Gibbs, DIAMOND [address] [facility], [address], [place], [address], [facility] Mevvy 07/22/2024 18:36:19 07/30/2024 text/html Carlos is seen [...] His pcp Dr Jacinto referred him to [facility] [employer] with appt 07/29/24 at 1pm per pt. [...] has decreased strength also. He shows this POSTPARTUM RN his appointment pickup is at 10:45 am today for the MRI. He reports pain is baseline with oxycodone and tolerable. Referral to Dr Serna is written for with all imaging to go with consult. Sonja Gibbs, POSTPARTUM RN [address] [facility], [address], [place], [address], [facility] - M[place] 07/30/2024 09:06:11 08/04/2024 text/html Carlos is seen [...] His pcp Dr Jacinto referred him to [facility] [employer] with appt 07/29/24 at 1pm per pt. He is recommended to see Dr Serna. MRI done on 07/30 and referral and tests to [facility] for appt today.He also requested second opinion and was referred to minimally invasive surgery center at [facility] with appointment on Friday08/09/24. of note: On [...] is onboard with plan for fu with [facility] minimally invasive spine center on 08/09 and [...] right arm weakness and leg weakness. Sonja Gibbs NP [address] [facility], [address], [place], [address], [facility] M[place]vy 08/04/2024 10:04:01 08/09/2024 text/html Carlos is seen fo r an acute rounding visit today. Carlos is seen for a BS of 47 this am. He was asymptomatic and recovered with breakfast and a snack. He has recent adjustments of BS lately due to low BS, however still remains low in am. Will jose juan borges today. He followed up with minimally invasive spine center today on 08/09. Although no report or consultation was sent back with him today, he states he had the MRI read to him and it is realizing how bad it is and has tears in his eyes. He plans to have another consult on Friday to see if there are options at the minimally invasive spine center. He also has an appointment with Dr Serna neurosurgeon on 08/19. On exam, patient is seen lying in bed. He remains with right arm weakness and leg weakness. Notable recent events:Imaging:While here a right shoulder xray and U/S done for swelling to lower right fingers both came back without fracture, dislocation, or thrombus. He is followed outpt by vascular Dr Awan for his lymphedema and seems to be resolving. His pcp Dr Jacinto referred him to [facility] with appt 07/29/24 at 1pm per pt. He is recommended to see Dr Serna. MRI done.He also requested second opinion and was referred to minimally invasive surgery center at [facility] with appointment on Friday08/09/24. On 06/24 he saw ALESSANDRO Apple for the weakness and pain of right arm and left leg. An MRI of lumbar spine was done and now [facility] requesting MRI of cervical neck for ?relation to the right arm weakness and numbness scheduled for 07/30/24. He was give a knee knee and a sling in the meantime. MRI done with referral to neurosurgery. Carlos was originally admitted on 05/06 after [...] not able to be met at home. Sonja Gibbs, DIAMOND [address] [facility], [address], [place], [address], [facility] - M[place] 08/09/2024 15:24:33
--- OUTSIDE RECORDS SUMMARY | 2024-08-19 08:47 | XMS_ITS | Encounter Summary ---
Author Organization [facility] Address [address] [place] [address] Care Team Providers Care Gauge Maker Name Role Phone Tram Álvarez MD Primary Care Provider [phone] Encounter Details Date Type Department Care Team (Late st Contact Info) Description 07/16/2024 Lab Requisition [facility] - Main Lab [address] [place] [address] Prince Le MD [address] [facility] [address] [place], [address] Type 2 diabetes mellitus without complications [...] mg/dL LAB CHEMISTRY METHOD 07/16/2024 12:50 PM [facility] Blood Venous blood specimen / Unknown Venipuncture / Unknown 07/16/2024 8:00 AM EST 07/16/2024 11:21 AM EST us Prince Le MD LAB BLOOD ORDERABLES Final Resul t [facility] [address] [place] [address], [place] [phone] * (ABNORMAL) Comprehensive metabolic panel (07/16/2024 8:00 AM EST) Sodium 137 133 - 145 mmol/L LAB CHEMISTRY METHOD 07/16/2024 1:13 PM [facility] Potassium 5.1 3.5 - 5.5 mmol/L LAB CHEMISTRY METHOD 07/16/2024 1:13 PM [facility] Chloride 103 96 - 110 mmol/L LAB CHEMISTRY METHOD 07/16/2024 1:13 PM [facility] CO2 27 21 - 32 mmol/L LAB CHEMISTRY METHOD 07/16/2024 1:13 PM [facility] Anion Gap 7 3 - 11 LAB CHEMISTRY METHOD 07/16/2024 1:13 PM [facility] Glucose 40(L) 70 - 100 mg/dL LAB CHEMISTRY METHOD 07/16/2024 1:13 PM [facility] BUN 35(H) 5 - 25 mg/dL LAB CHEMISTRY METHOD 07/16/2024 1:13 PM [facility] Creatinine 1.27 0.70 - 1.30 mg/dL LAB CHEMISTRY METHOD 07/16/2024 1:13 PM [facility] eGFR 62 >=60 mL/min/1. 73m2 LAB CHEMISTRY METHOD 07/16/2024 1:13 PM [facility] Comment:Calculation based on the??Chronic Kidney Disease Epidemiology Collaboration (CKD-EPI) equation refit??without adjustment for race. BUN/Creatinine Ratio 27.6 LAB CHEMISTRY METHOD 07/16/2024 1:13 PM [facility] Calcium 9.0 8.5 - 10.5 mg/dL LAB CHEMISTRY METHOD 07/16/2024 1:13 PM [facility] AST (SGOT) 18 10 - 42 unit/L LAB CHEMISTRY METHOD 07/16/2024 1:13 PM [facility] ALT (SGPT) 19 10 - 60 unit/L LAB CHEMISTRY METHOD 07/16/2024 1:13 PM [facility] Alkaline Phosphatase 62 42 - 121 unit/L LAB CHEMISTRY METHOD 07/16/2024 1:13 PM [facility] Total Protein 6.7 6.0 - 8.0 g/dL LAB CHEMISTRY METHOD 07/16/2024 1:13 PM [facility] Albumin 3.5 3.2 - 5.0 g/dL LAB CHEMISTRY METHOD 07/16/2024 1:13 PM [facility] Total Bilirubin 0.4 0.0 - 1.4 mg/dL LAB CHEMISTRY METHOD 07/16/2024 1:13 PM [facility] Blood Venous blood specimen / Unknown Venipuncture / Unknown 07/16/2024 8:00 AM EST 07/16/2024 11:21 AM EST us Prince Le MD LAB BLOOD ORDERABLES Final Resul t [facility] [address] [place] [address], * (ABNORMAL) Complete blood count (07/16/2024 8:00 AM EST) WBC 10.9(H) 4.8 - 10.8 K/mcL LAB HEMETOLOGY METHOD 07/16/2024 11:53 AM EST [facility] RBC 4.90 4.50 - 5.50 M/mcL LAB HEMETOLOGY METHOD 07/16/2024 11:53 AM [facility] Hemoglobin 13.4(L) 13.5 - 17.5 g/dL LAB HEMETOLOGY METHOD 07/16/2024 11:53 AM [facility] Hematocrit 41.6(L) 42.0 - 54.0 % LAB HEMETOLOGY METHOD 07/16/2024 11:53 AM [facility] MCV 85.1 79.0 - 98.0 FL LAB HEMETOLOGY METHOD 07/16/2024 11:53 AM [facility] MCH 27.4 27.0 - 32.0 pcg LAB HEMETOLOGY METHOD 07/16/2024 11:53 AM [facility] MCHC 32.2 32.0 - 37.0 g/dL LAB HEMETOLOGY METHOD 07/16/2024 11:53 AM [facility] RDW 18.3(H) 11.0 - 15.0 % LAB HEMETOLOGY METHOD 07/16/2024 11:53 AM [facility] Platelets 413(H) 130 - 400 K/mcL LAB HEMETOLOGY METHOD 07/16/2024 11:53 AM [facility] MPV 12.4(H) 7.0 - 11.0 FL LAB HEMETOLOGY METHOD 07/16/2024 11:53 AM [facility] NRBC 0.0 <1.0 % LAB HEMETOLOGY METHOD 07/16/2024 11:53 AM [facility] NRBC Absolute 0.00 <0.10 K/mcL LAB HEMETOLOGY METHOD 07/16/2024 11:53 AM [facility] Blood Venous blood specimen / Unknown Venipuncture / Unknown 07/16/2024 8:00 AM EST 07/16/2024 11:21 AM EST us Prince Le MD LAB BLOOD ORDERABLES Final Resul t [facility] [address] [place] [address], documented in this encounter Visit Diagnoses Diagnosis Type 2 diabetes mellitus without complications (CMS/HCC) documented in this encounter Care Teams Gauge Maker Relationship Specialty Start Date End Date Tram Álvarez MD [address] [facility] , [address] [facility] D/B/A: [facility] [place], [place] PCP - General Internal Medicine 03/30/18 documented as of this encounter
--- OUTSIDE RECORDS SUMMARY | 2024-08-19 08:47 | XMS_ITS | Encounter Summary ---
Author Organization [facility] Address [address] [place] [address] Care Team Providers Care Set Up Operator Name Role Phone Tram Álvarez MD Primary Care Provider Encounter Details Date Type Department Care Team (Late st Contact Info) Description 05/14/2024 Lab Requisition [facility] - Main Lab [address] [place] [address] Prince Le MD [address] [facility] [address] [place], [address] Essential (primary) hypertension Social History Tobacco [...] mmol/L LAB CHEMISTRY METHOD 05/17/2024 10:43 AM EST [facility] Potassium 4.5 3.5 - 5.5 mmol/L LAB CHEMISTRY METHOD 05/17/2024 10:43 AM EST [facility] Chloride 110 96 - 110 mmol/L LAB CHEMISTRY METHOD 05/17/2024 10:43 AM [facility] CO2 27 21 - 32 mmol/L LAB CHEMISTRY METHOD 05/17/2024 10:43 AM [facility] Anion Gap 6 3 - 11 LAB CHEMISTRY METHOD 05/17/2024 10:43 AM [facility] Glucose 99 70 - 100 mg/dL LAB CHEMISTRY METHOD 05/17/2024 10:43 AM [facility] BUN 37(H) 5 - 25 mg/dL LAB CHEMISTRY METHOD 05/17/2024 10:43 AM [facility] Creatinine 1.29 0.70 - 1.30 mg/dL LAB CHEMISTRY METHOD 05/17/2024 10:43 AM [facility] eGFR 60 >=60 mL/min/1. 73m2 LAB CHEMISTRY METHOD 05/17/2024 10:43 AM [facility] Comment:Calculation based on the??Chronic Kidney Disease Epidemiology Collaboration (CKD-EPI) equation refit??without adjustment for race. BUN/Creatinine Ratio 28.7 LAB CHEMISTRY METHOD 05/17/2024 10:43 AM [facility] Calcium 9.3 8.5 - 10.5 mg/dL LAB CHEMISTRY METHOD 05/17/2024 10:43 AM [facility] Blood Venous blood specimen / Unknown Venipuncture / Unknown 05/17/2024 6:41 AM EST 05/17/2024 9:49 AM EST us Prince Le MD LAB BLOOD ORDERABLES Final Resul t [facility] [address] [place] [address], * (ABNORMAL) Complete blood count (05/17/2024 6:41 AM EST) WBC 9.0 4.8 - 10.8 K/mcL LAB HEMETOLOGY METHOD 05/17/2024 10:23 AM [facility] RBC 5.50 4.50 - 5.50 M/mcL LAB HEMETOLOGY METHOD 05/17/2024 10:23 AM [facility] Hemoglobin 15.0 13.5 - 17.5 g/dL LAB HEMETOLOGY METHOD 05/17/2024 10:23 AM [facility] Hematocrit 48.3 42.0 - 54.0 % LAB HEMETOLOGY METHOD 05/17/2024 10:23 AM [facility] MCV 88.0 79.0 - 98.0 FL LAB HEMETOLOGY METHOD 05/17/2024 10:23 AM [facility] MCH 27.3 27.0 - 32.0 pcg LAB HEMETOLOGY METHOD 05/17/2024 10:23 AM [facility] MCHC 31.1(L) 32.0 - 37.0 g/dL LAB HEMETOLOGY METHOD 05/17/2024 10:23 AM [facility] RDW 16.6(H) 11.0 - 15.0 % LAB HEMETOLOGY METHOD 05/17/2024 10:23 AM [facility] Platelets 240 130 - 400 K/mcL LAB HEMETOLOGY METHOD 05/17/2024 10:23 AM [facility] MPV 13.4(H) 7.0 - 11.0 FL LAB HEMETOLOGY METHOD 05/17/2024 10:23 AM [facility] NRBC 0.0 <1.0 % LAB HEMETOLOGY METHOD 05/17/2024 10:23 AM [facility] NRBC Absolute 0.00 <0.10 K/mcL LAB HEMETOLOGY METHOD 05/17/2024 10:23 AM [facility] Blood Venous blood specimen / Unknown Venipuncture / Unknown 05/17/2024 6:41 AM EST 05/17/2024 9:51 AM EST us Prince Le MD LAB BLOOD ORDERABLES Final Resul t [facility] [address] [place] [address], [place] [phone] documented in this encounter Visit Diagnoses Diagnosis Essential (primary) hypertension Unspecified essential hypertension documented in this encounter Care Teams Set Up Operator Relationship Specialty Start Date End Date Tram Álvarez MD [address] [facility] , [address] [facility] D/B/A: [facility] [place] PCP - General Internal Medicine 03/30/18 documented as of this encounter
--- OUTSIDE RECORDS SUMMARY | 2024-08-19 08:47 | XMS_ITS | Clinical Summary ---
Author Organization [facility] Address [address] [place] [address] Care Team Providers Care Cheese Production Supervisor Name Role Phone Sade Dykes PA-C Primary Care Provider [phone] Source Comments PLEASE NOTE, if this patient [...] 60 Tab 0 12/01/19 14 Active Acidophilus-Pectin, Volcano 25 million-100 cell-mg tabIndications:Dive rticulosis Take 1 tablet by mouth 2 (two) times daily. As directed by manager landscape 100 tablet 3 01/31/20 14 Active benazepril [...] Plan of Treatment Not on file Insurance [id number] Care Teams Cheese Production Supervisor Relationship Specialty Start Date End Date Sade Dykes PA-C [address] [place] [id number] [facility] - General 04/14/13
--- OUTSIDE RECORDS SUMMARY | 2024-08-19 08:47 | XMS_ITS | Clinical Summary ---
Author Organization [facility] Facility Address [address] [place] [address] Care Team Providers Care Staff Mechanical Engineer Name Role Phone Tram Royal MD Primary Care Provider [phone] Allergies Active Allergy Reactions Criticality Noted Date [...] % PVNMA 04/28/2020 us [facility] [id number] LICITED RESULTS Final Result PVNMA from Last 3 Months or Most Recently Relevant to Health Maintenance Insurance [address] [place] [id number] [place] [address] [place] [id number] [place] Care Teams Staff Mechanical Engineer Relationship Specialty Start Date End Date Tram Royal MD [address] [place], [place] PCP - General 07/17/20
--- OUTSIDE RECORDS SUMMARY | 2024-08-19 08:47 | XMS_ITS | Clinical Summary ---
Author Organization [facility] Address [address] [place] [address] Care Team Providers Care Preschool Associate Teacher Name Role Phone Tram Royal MD Primary [...] age to complete this topic Care Teams Preschool Associate Teacher Relationship Specialty Start Date End Date Tram Royal MD [address] [facility] , [address] [facility] D/B/A: [facility] [place] [address] PCP - General Internal Medicine 03/30/18
--- OUTSIDE RECORDS SUMMARY | 2024-08-19 08:47 | XMS_ITS | Continuity of Care Document ---
Author Organization [facility] Address [address] [place] [address] Care Team Providers Care Compounding Scaler Name Role Phone LANG HERRERA Primary Care Provider [phone] [facility] - 4TH FLOOR OTHER Assessment [...] Address Organization Details Recorded Time Diabetes mellitus 37178169 Active 2019 YANG SWEET [address], [place], [address], [facility] 0 09:29:33 Depressive disorder 74660648 Active 2019 YANG SWEET [address] , [address], [place], [address], [facility] 0 09:29:39 Essential hypertensio n 37235352 Active 2019 [address]ANG S[address]ET [address], [address], [place], [address], [facility] 0 09:29:47 Hypercholes terolemia 65827911 Active 2019 [address]ANG SWEET [address], [address], [place], [address], [facility] 0 09:29:57 Vitamin D deficiency 48455047 Active 2019 [address]ANG SWEET [address], [address], [place], [address], [email or web address] 0 09:30:10 Insomnia 773283080 Active 2019 YANG SWEET [address], [address], [place], [address], [place] - [facility] 0 09:30:19 Spinal stenosis of lumbar region 70315686 Active 2019 YANG SWEET [address], [address], [place], [address], [place] - [facility] 0 09:30:43 Total knee replacement Active 2022 Sonja Gibbs NP [address] , [address], [place], [address], [email or web address] 3 09:12:50 Acute pain of joint of knee 2926295819921 04 Active 2022 Sonja Gibbs NP [address], [address], [place], [address], [email or web address] 3 09:14:53 Constipatio n 73589068 Active 2022 Sonja Gibbs NP [address], [address], [place], [address], [facility] 3 10:15:39 Osteoarthri tis of knee 069510899 Active 2022 Judie Camacho MD [address], [address], [place], [address], [facility] 3 20:37:14 Chronic kidney disease stage 1 857986124 Active 2022 Judie Camacho MD [address], [address], [place], [address], [facility] 3 20:53:16 Chronic diastolic heart failure 528012083 Active 2023 Judie Camacho MD [address], [address], [place], [address], [facility] 4 21:28:14 Chronic kidney disease stage 2 372287611 Active 2023 Judie Camacho MD [address], [address], [place], [address], [employer] 4 21:28:20 Problem Notes None recorded. Procedures Surgical History Date Name Laterality Status Provider Name and Address Organization Details Recorded Time laminotomy completed NURIAYANG LUIS [address], [address], [place], [address], [employer] 01/06/2020 09:27:06 Imaging Results None recorded. Procedure Notes None recorded. Medical Equipment None Reported. Allergies Allergen ID Allergen Name Allergen Category Reaction Reaction Severity Criticality Documentation Date Start Date Code Code System Note Provider Name and Address Organization Details Recorded Time 45975 Product containin g penicilli n and antibioti c (product) medicatio n rash Not available Not available 01/06/2020 05174 05 SNOMED Not Available Not Available Not [...] Updated DateTime 5 198.12 cm 21.5 kg/m2 41881.1 8 g 78 /min 18 /min 98.6 [degF] 97 % 97 % 114 mm[Hg] 74 mm[Hg] Sonja Gibbs NP [address], [address], [place], [address], [facility] 5 09:06:17 Social History Question Answer Notes LastModified by Organizat ion Details LastModified Time Tobacco Smoking Status Former Smoker Sonja Gibbs, DIAMOND [address], [address], [place], [address], [facility] 02/14/2023 10:11:47 Do You Have An Advance Directive? Yes FULL CODE No Dialysis And Okay To Use Nutrition-us e Hydration Information not available 02/14/2023 What Is Your Level Of Alcohol Consumption? Occasional Information not available 02/14/2023 How Much Tobacco Do You Chew? None [id number] Information not available 05/02/2020 What Is Your Code Status? Full Code Information not available 02/14/2023 Do You Or Have You Ever Used E-cigarettes Or Vape? Never Used Electronic Cigarettes [id number] Information not available 05/02/2020 Where Do You Live? Apartment Elevator Information not available 02/19/2023 Legal Guardian? 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 Yes [id number] Information not available 05/02/2020 What Was The [...] Used Smokeless Tobacco? Never Used Smokeless Tobacco [id number] Information not available 05/02/2020 Do You Use Any Illicit Or Recreational Drugs? No Information not available 02/14/2023 Has Tobacco Cessation Counseling Been Provided? No N/a As Pt. No Longer Smokes Information not available 02/19/2023 How Many Years Have You Smoked Tobacco? 40 [id number] Information not available 05/02/2020 Do You Have [...] Influenza, adjuvanted, quadrivalent, PF [facility] 09:57:53 Influenza, adjuvanted, quadrivalent, PF 3 [facility] 11:45:01 pneumococcal polysaccharide PPV23 8 completed Sade Little [facility] 05/07/2024 15:50:52 influenza, unspecified formulation 4 completed Sade Little [facility] 05/07/2024 15:51:08 SARS-COV-2 (COVID-19) vaccine, UNSPECIFIED 1 completed Sade Little [facility] 05/07/2024 15:51:23 SARS-COV-2 (COVID-19) vaccine, UNSPECIFIED 1 completed Sade Little [facility] 05/07/2024 15:51:30 SARS-COV-2 (COVID-19) vaccine, UNSPECIFIED 3 completed Sade Little [facility] 05/07/2024 15:51:38 Past Encounters Encounter ID Performer Location Encounter Start Date Encounter Closed Date Diagnosis/Indication Diagnosis SNOMED-CT Code Diagnosis ICD10 Code Diagnosis Note [id number] Sonja Gibbs NP [address] [address] 07/14/2024 13:30:49 07/16/2024 10:19:43 Diabetes mellitus 37316647 E11.9 Last HgA1C was 7.9 in 11/2023.Fol lowed by endocrine at [facility].with BS of 44 on 07/15 and similar in past, remains asymptomat icContinue trulicity 1.5 weekly, metformin 500 mg BID, januvia 25 mg qd, and SSI1/8 decrease (degludec) tresiba 26 U qd to 20 unitsMonit or fingerstic ks TID and HgA1C as outpt.of note was on 35 units of insulin in recent past Asthenia 80654727 R53.1 remains with weakness to left leg and right arm12/20 right arm and left knee brace on in am and off in pm per dr anderson's ordersPT/O T eval and treat prn, off regular therapymon itor [id number] Sonja Gibbs NP [address] [address] 07/22/2024 14:17:32 07/23/2024 15:07:54 Constipation 11689416 K59.09 with regular bm per patient todayCurre ntly no abd. pain, no N/V.BS w0Vlliomak e fluids, dietary fiber.cont senna plus 2 tabs qdmiralax dailyhouse bowel protocol prn Diabetes mellitus 622793 09 E11.9 Last HgA1C was 7.9 in 11/2023.Fol lowed by endocrine at [facility] with multiple low BS in amContinue trulicity 1.5 weeklymetf ormin 500 mg BIDanuvia 25 mg qd, and SSI(deglud ec)tresiba 20 unitsMonit or fingerstic ks TID and HgA1C as outpt.(of note was on 35 units of insulin in recent past) Asthenia 60709872 R53.1 remains with weakness to left leg and right arm, and today with right leg weaknessri ght arm and left knee brace on in am and off in pm per dr anderson's ordersPT/O T eval and treat prn, off regular therapymon itor Spinal mg nosis of lumbar region 75416857 M48.062 With chronic back pain. hx of [...] in pmfu after MRI sched /29/08 5 [facility] spine [facility] sport at 1 pm sched from outside providerco ntPT/OT for strengthen ing, balance, gait training, safety and function prnremains barrington lift at this timeContin ue fall precaution s.Monitor for safety.Margareth mccullough pain controlCel ebrex remains on hold. Pain in right arm 732755 004 M79.601 Denies trauma or injury. feels [...] above for management Osteoarthr itis of knee 299585881 M17.12 Z96.652 LTKR originally done on 02/11remains [...] concernsmo nitor Chronic di astolic heart failure 777856703 I50.32 per hosp report of CHF.he never [...] fluid status, wts and labs. Essential hypertension 82705543 I10 stableCont inue meds as above and amlodipine 2.5 mg qd.Monitor BP and labsDaily BPs ordered. Depressive disorder 3548 9007 F32.89 In hx.On no meds.Monit or mood.Psych consult prn. Benign pro static hyperplasia without outflow obstruction 549941297 N40.0 In hx, with some issues with retention at times.Cont inuetamsul osin 0.4 mg qd. Gastroesop hageal reflux disease without esophagitis 841885461 K21.9 Using TUMS frequently for GERD/GI sx. resolvingc ontpepcid 20 mg bidMonitor sx.If remain problemati c, consider trial of PPI Nausea and vomiting 1693 2000 R11.2 resolvedse e belowzofra n 4 mg po q 6 hours prn n/v x 30 days Chronic ki dney disease stage 2 452818274 N18.2 At baseline.C ontinue to avoid nephrotoxi c meds as able.Monit or labs.Renal consult prn. Hypercholesterolemia 136 30723 E78.2 Continueat orvastatin 20 mg qdfenofibr ate 145 mg qdvascepa 2 g BID,ASA 81 mg qd.Monitor labs as outpt. [id number] Sonja Gibbs NP [address] [address] 07/30/2024 08:03:45 08/03/2024 12:50:06 Spinal stenosis of lumbar region 01837633 M48.062 With chronic back pain and weakness [...] in pmfu after cervical MRI sched 07/3107/29/24 [facility] spine and sport with rec:neuros urgery consult with Dr Serna 07/30 referral to [facility] ordered as recommende d, has MRI today. contPT/OT prn, currently not working with [employer] at this timeContin ue fall precaution s.Monitor for safety.Margareth mccullough pain controlCel ebrex remains on hold. Asthenia 76711250 R53.1 remains with weakness to left leg and right arm, and today with right leg weaknessri ght arm sling and left knee brace on in am and off in pm per dr anderson's ordersPT/O T eval and treat prn, off regular therapymargareth mccullough Pain in right arm 836488 004 M79.601 Denies trauma or injury. feels [...] above for management Osteoarthr itis of knee 866445563 M17.12 Z96.652 LTKR originally done on 02/11remains [...] lower ext neg for acute concernsmo nitor [id number] Sonja Gibbs NP [facility] [address] [facility] [place] [address] 08/04/2024 09:05:47 08/06/2024 09:42:06 Spinal stenosis of lumbar region 49594992 M48.062 With chronic back pain and weakness [...] rec for [place] [facility] [place] 08/0907/29/24 [facility] with rec:neuros [...] of c3 to the superior endplate of c5.[facility] [place] pt referral:rich rios was rec for minimally invasive [place] [facility] [place] 2/ contPT/OT prn, currently not working with himremains barrington lift at this timeContin ue fall precaution s.Monitor for safety.Mon itor pain control see belowCeleb sandip remains on hold. Asthenia 59508324 R53.1 remains with weakness to left leg and right arm, and today with right leg weaknessri ght arm sling and left knee brace on in am and off in pm per dr anderson's ordersPT/O T eval and treat prn, off regular therapymon itor Pain in right arm 785509 004 M79.601 Denies trauma or injury. feels [...] and MRI cervical spine as ordered by alma rosa, as aboveMonit or closely.se e above for management Osteoarthr itis of knee 991315309 M17.12 Z96.652 LTKR originally done on 02/11remains [...] neg for acute concernsmo nitor Diabetes mellitus 364230 09 E11.9 Last HgA1C was 7.9 in 11/2023.Fol lowed by endocrine at [facility] with multiple low BS in am of 54, recheck BS came upContinue januvia 25 mg qdSSItruli city 1.5 weekly08/04 increase metformin 500 mg BID to 1000 mg po bid08/04 dc tresiba 20 units qhs for low BSMonitor fingerstic ks TID and HgA1C as outpt.(of note was on 35 units of insulin in recent past) Chronic pain 76570646 G8 9.29 followed by pain management here08/04 start gabapentin 100 mg po bidContinu eoxycodone 10 mg qid for painceleco xib 200 mg BIDAPAP 650 mg TID and q 4 hrs prn (NTE 3000 mg/d),Cont inue fall precaution s.Monitor for safety. Pain of left eye 5770219 001 59222 H57.12 reports left eye pain related to [...] Member ID Richardson Member ID Guarantor Name 08/04/2024 1 [facility] - DOS ON OR AFTER 2022 - MEDICARE ADVANTAGE [place] (MEDICARE REPLACEMENT/ADV ANTAGE - PPO) Carlos Cabrera [id number] Carlos Cabrera Notes Date Note Type Note Provider Name and Address Organization Details Recorded Time 08/04/2024 text/html Carlos is seen fo r [...] His pcp Dr Jacinto referred him to [facility] with appt 07/29/24 at 1pm per pt. He is recommended to see Dr Serna. MRI done on 07/30 and referral and tests to [facility] for appt today.He also requested second opinion and was referred to [place] [facility] [place] appointment on Friday08/09/24. of note: On [...] but then plateaued and is now on retirement care here. He is no longer receiving therapy here. He continues to need 2 max assist for transfers and requires a barrington lift and needs are not able to be met at home. On exam, Carlos is lying in bed and states he is okay . MRI results reviewed and he is onboard with plan for fu with [facility] [place] on 08/09 and [...] and leg weakness. Sonja Gibbs NP [address], [address], [place], [address], [facility] [employer] 08/04/2024 10:04:01
--- OUTSIDE RECORDS SUMMARY | 2024-08-19 08:48 | XMS_ITS | Encounter Summary ---
Author Organization [facility] Address [address] [place] [address] Care Team Providers Care Risk Control Officer Name Role Phone Tram Álvarez MD Primary Care Provider [phone] Encounter Details Date Type Department Care Team (Late st Contact Info) Description 06/18/2024 Lab Requisition [facility] - Main Lab [address] [place] [address] Prince Le MD [address] [facility] [address] [place], [address] Nausea with vomiting, unspecified; Chronic kidney [...] mmol/L LAB CHEMISTRY METHOD 06/18/2024 11:17 AM EST [facility] Potassium 4.6 3.5 - 5.5 mmol/L LAB CHEMISTRY METHOD 06/18/2024 11:17 AM [facility] Chloride 102 96 - 110 mmol/L LAB CHEMISTRY METHOD 06/18/2024 11:17 AM [facility] CO2 32 21 - 32 mmol/L LAB CHEMISTRY METHOD 06/18/2024 11:17 AM [facility] Anion Gap 8 3 - 11 LAB CHEMISTRY METHOD 06/18/2024 11:17 AM [facility] Glucose 72 70 - 100 mg/dL LAB CHEMISTRY METHOD 06/18/2024 11:17 AM [facility] BUN 35(H) 5 - 25 mg/dL LAB CHEMISTRY METHOD 06/18/2024 11:17 AM [facility] Creatinine 1.44(H) 0.70 - 1.30 mg/dL LAB CHEMISTRY METHOD 06/18/2024 11:17 AM [facility] eGFR 53(L) >=60 mL/min/1. 73m2 LAB CHEMISTRY METHOD 06/18/2024 11:17 AM [facility] Comment:Calculation based on the??Chronic Kidney Disease Epidemiology Collaboration (CKD-EPI) equation refit??without adjustment for race. BUN/Creatinine Ratio 24.3 LAB CHEMISTRY METHOD 06/18/2024 11:17 AM [facility] Calcium 9.3 8.5 - 10.5 mg/dL LAB CHEMISTRY METHOD 06/18/2024 11:17 AM [facility] Blood Venous blood specimen / Unknown Venipuncture / Unknown 06/18/2024 6:44 AM EST 06/18/2024 9:17 AM EST us Prince Le MD LAB BLOOD ORDERABLES Final Resul t [facility] [address] [place] [address], * (ABNORMAL) Complete blood count (06/18/2024 6:44 AM EST) WBC 8.4 4.8 - 10.8 K/[facility] LAB HEMETOLOGY METHOD 06/18/2024 10:46 AM [facility] RBC 5.10 4.50 - 5.50 M/[facility] LAB HEMETOLOGY METHOD 06/18/2024 10:46 AM [facility] Hemoglobin 14.2 13.5 - 17.5 g/dL LAB HEMETOLOGY METHOD 06/18/2024 10:46 AM [facility] Hematocrit 43.5 42.0 - 54.0 % LAB HEMETOLOGY METHOD 06/18/2024 10:46 AM [facility] MCV 86.1 79.0 - 98.0 FL LAB HEMETOLOGY METHOD 06/18/2024 10:46 AM [facility] MCH 28.1 27.0 - 32.0 pcg LAB HEMETOLOGY METHOD 06/18/2024 10:46 AM [facility] MCHC 32.6 32.0 - 37.0 g/dL LAB HEMETOLOGY METHOD 06/18/2024 10:46 AM [facility] RDW 17.2(H) 11.0 - 15.0 % LAB HEMETOLOGY METHOD 06/18/2024 10:46 AM [facility] Platelets 248 130 - 400 K/[facility] LAB HEMETOLOGY METHOD 06/18/2024 10:46 AM [facility] MPV 12.7(H) 7.0 - 11.0 FL LAB HEMETOLOGY METHOD 06/18/2024 10:46 AM [facility] NRBC 0.0 <1.0 % LAB HEMETOLOGY METHOD 06/18/2024 10:46 AM [facility] NRBC Absolute 0.00 <0.10 K/[facility] LAB HEMETOLOGY METHOD 06/18/2024 10:46 AM [facility] Blood Venous blood specimen / Unknown Venipuncture / Unknown 06/18/2024 6:44 AM EST 06/18/2024 9:17 AM EST us Prince Le MD LAB BLOOD ORDERABLES Final Resul t [facility] [address] [place] [address], documented in this encounter Visit Diagnoses Diagnosis Nausea with vomiting, unspecified Chronic kidney disease, unspecified documented in this encounter Care Teams Risk Control Officer Relationship Specialty Start Date End Date Tram Álvarez MD 2 [facility] , [address] Physician Associ D/B/A: [facility] JAS Duque PCP - General Internal Medicine 03/30/18 documented as of this encounter
--- OUTSIDE RECORDS SUMMARY | 2024-08-19 08:48 | XMS_ITS | Data Portability ---
Author Organization [employer] [facility] [place] [facility] [employer] Address [address] [place] [address] Care Team Providers Care Production Trainer Name Role Phone HIM CCA OTHER LANG [...] Available N ot Available [employer] [place] active Not Available Not Available Not Available [...] SNOMED-CT Code Diagnosis ICD10 Code Diagnosis Note [id number] Alicia Perez MD Main - [facility] [address] [place] [address] 04/05/2024 17:15:55 04/05/2024 20:37:12 Accidental fall [id number] W19.XXXA I provided real -time medical direction via phone for this encounter, and was available for additional phone based assistance as needed. I have reviewed and agree with the Assessment and Plan as documented by the Turf Keeper. Patient given the opportunit y to ask [...] Richardson Member ID Guarantor Name 04/05/2024 1 [facility] - DOS ON OR AFTER 2022 - DUAL ELIGIBLE - HALF-WAY OPTIONS AND ONE CARE (MEDICARE REPLACEMENT/ADV ANTAGE - HMO) Carlos Cabrera [id number] Carlos Cabrera Notes Date Note Type Note Provider Name and Address Organization Details Recorded Time 04/05/2024 text/html [facility] Nurse Triage Notes (Inder Sweeney): Chief Complaints: Falls Allergies: Unknown Comments: Research Associate Quality Control Qc verified the Pt.'s name//address and phone number. [...] .................. .................. .................. .................. .................. .................. ............... Turf Keeper Note From Dangelo Willis: Dispatched to the [...] he is working on with his PCP. [facility] was consulted. Red flags discussed. .................. .................. .................. .................. .................. .................. .................. ............... Disposition: Fulfilled Alicia Perez MD [address] [facility],[address], [place], [address], MOHINI PAGE 04/05/2024 20:37:09
--- NOTE | 2024-08-19 09:03 | MHC.SHP ---
Pre-Procedural Eval Section A - 24 Hr Update-Section A only Date of Service: 08/19/24 The patient is an INPATIENT: No Section B - Complete if H&P > 30 days Chief Complaint: Disease of spinal cord, unspecified Details of Present Illness: Quadriparesis due to cervical spinal cord compression Allergies: Allergies Allergy/AdvReac Type Severity Reaction Status Date / Time Penicillins [PENICILLINS] Allergy Severe RASH Verified 08/19/24 08:58 jay pepper Allergy Intermediate Rash Verified 08/19/24 08:58 pepper (genus Capsicum) AdvReac Intermediate rashes Verified 08/19/24 08:58 Review of Systems Sugical H&P ROS: Negative: Constitution, Cardiovascular, Respiratory, Psychiatric, Hem-Onc, Allergic/Immunologic, Gastrointestinal, Genitourinary, Musculoskeletal, Integumentary, Endocrine and Eyes/Ears/Nose/Throat and Yes, Specify: Neurological (Numbness and weakness of all extremities) Exam Surgical H&P Exam: Normal: HEENT, Normal: Heart, Normal: Lungs, Normal: Extremities, Normal: Abdomen and Normal: Skin and Significant Findings: Neurological (Quadriparesis, distal extremities more involved than upper extremities) Plan Diagnosis/Plan: Unchanged I have reviewed the history and physical and performed a pertinent physical examination on my patient. No changes have occurred unless specified. C4-C5, C5-C6 anterior diskectomy and fusion Time Spent With Patient Time: Total time managing care of this patient today ____ minutes.
[2024-08-19] MEDS: methocarbamoL 750 MG TABLET PO (09:20)
[2024-08-19] MEDS: Gabapentin 300 MG CAPSULE PO (09:20)
[2024-08-19] MEDS: Lactated Ringers 1,000 ML 100 ML IVCONT (09:36)
[2024-08-19] MEDS: vancomycin HCL 1,500 MG in 0.9 % Sodium Chloride 500 ML 333.33 MG IV (09:37)
[2024-08-19 09:43] LABS: Glucose, Whole Blood 156 mg/dL (60-115)
--- NOTE | 2024-08-19 10:26 | P.CONAN_ITS ---
[facility] Active Problems Active Problems: All Active Problems Cervical myelopathy (Acute) Wheelchair fitting or adjustment (Acute) Lumbar degenerative disc disease (Acute) Varicose veins of both lower extremities with inflammation (Acute) Right arm weakness (Acute) Physical exam (Acute) Right shoulder pain (Acute) Neck pain (Acute) Anasarca (Acute) Edema of both legs (Acute) Wheelchair dependent (Acute) Lymphedema (Acute) Encounter for wheelchair assessment (Acute) Right arm weakness (Acute) Urinary incontinence (Acute) Multiple falls (Acute) Chronic GERD (Acute) Hyperlipidemia LDL goal <70 (Acute) Left hand pain (Acute) Obesity (BMI 30-39.9) (Acute) Status post cholecystectomy (Acute) Abnormal gallbladder ultrasound (Acute) Hospital discharge follow-up (Acute) Right upper quadrant abdominal pain (Acute) Carpal tunnel syndrome of left wrist (Acute) Low vitamin D level (Acute) Paresthesia of upper extremity (Acute) Right carpal tunnel syndrome (Acute) CKD (chronic kidney disease) stage 2, GFR 60-89 ml/min (Acute) Rupture of left quadriceps tendon (Acute) Status post total knee replacement, left (Acute) Preoperative cardiovascular examination (Acute) Abnormal EKG (Acute) Osteoarthritis of left knee (Acute) Microalbuminuria (Acute) Diabetic neuropathy associated with type 2 diabetes mellitus (Acute) Arthritis of both knees (Acute) Pre-op evaluation (Acute) Orthostatic hypotension (Acute) Numbness and tingling in right hand (Acute) Diabetes mellitus (Acute) Essential hypertension (Acute) Knee osteoarthritis (Acute) Mild recurrent major depression (Acute) Mixed hyperlipidemia (Acute) Right shoulder pain (Acute) Right knee pain (Acute) Left knee pain (Acute) Proteinuria (Acute) Diabetic polyneuropathy associated with type 2 diabetes mellitus (Acute) Hypertriglyceridemia (Acute) Obesity due to excess calories (Acute) Lumbar stenosis (Acute) Past Medical History Medical History GERD (gastroesophageal reflux disease) Acute cholecystitis due to biliary calculus Numbness and tingling in right hand Numbness and tingling in left hand Essential hypertension Diabetes mellitus Knee osteoarthritis Mild recurrent major depression Mixed hyperlipidemia Right shoulder pain Right knee pain Left knee pain CKD (chronic kidney disease), stage III Low back pain Multiple falls Syncope DAVINA (acute kidney injury) Obesity due to excess calories Lumbar spondylosis Proteinuria Arthritis Hypertriglyceridemia Hypertension Diabetic polyneuropathy associated with type 2 diabetes mellitus Type 2 diabetes mellitus with other diabetic kidney complication Lumbar stenosis Functional capacity: wheelchair bound Family History Family History Father Medical history unknown Mother Hypertension Maternal Grandmother Medical history unknown Family history of problems with anesthesia: No Surgical History Surgical History History of cholecystectomy (09/19/23) History of surgery on lower extremity History of total left knee replacement (TKR) S/P evacuation of hematoma Hx of cataract surgery History of lumbar surgery Hx of eye surgery History of back surgery History of Problems with Anesthesia: No Social History Social History Household Members: None Household Members Other:: self Housing: Apartment Housing Other:: currently at [facility] Are you a primary farm or ranch animal caretaker to a significant other at home: No Do you presently have visiting 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) Alcohol intake: never Comment: Narciso lift Patient Tobacco Use Status: Former Tobacco user Tobacco use type: Cigarette Years Smoked: 25 e-Cigarette/Vaping Use: Never Used Second Hand Smoke Exposure: No Are you DNR?: No Advance Directives: Yes Advance Directives Information Provided: No Advance Directives on File: Yes Advance Directives Date on File: 05/12/23 service: Yes Current occupational status: disabled Cognitive needs: Yes (walker) Hearing needs: No Vision needs: Yes (reading glasses) Meds Allergies Allergy/AdvReac Type Severity Reaction Status Date / Time Penicillins [PENICILLINS] Allergy Severe RASH Verified 08/19/24 08:58 jay pepper Allergy Intermediate Rash Verified 08/19/24 08:58 pepper (genus Capsicum) AdvReac Intermediate rashes Verified 08/19/24 08:58 Active Medications: Current Medications Fentanyl (Fentanyl Citrate/Pf 100 Mcg/2 Ml Vial) 25 mcg IVPUSH Q5M PRN PRN Reason: Pain, Moderate to Severe (Pain Scale 4-10) Stop: 08/19/24 14:39 Hydromorphone HCl (Hydromorphone Hcl 0.5 Mg/0.5 Ml Syringe) 0.25 mg IVPUSH Q5M PRN PRN Reason: Pain, Moderate to Severe (Pain Scale 4-10) Stop: 08/19/24 14:40 Lactated Ringer's (Lr) 1,000 mls @ 100 mls/hr IVCONT .Q10H IMTIAZ Last Admin: 08/19/24 09:36 Dose: 100 mls/hr Vancomycin HCl 1,500 mg/ (Sodium Chloride) 500 mls @ 333.333 mls/hr IV PREOP ONE Stop: 08/19/24 10:43 Last Admin: 08/19/24 09:37 Dose: 333.33 mls/hr Naloxone HCl (Naloxone Hcl 0.4 Mg/Ml Vial) 0.04 mg IVPUSH Q5M PRN PRN Reason: Excessive sedation or RR < 8 Ondansetron HCl (Ondansetron Hcl 4 Mg/2 Ml Vial) 4 mg IVPUSH ONCE PRN PRN Reason: Nausea and Vomiting Stop: 08/19/24 14:40 Home Medications ?Medication ?Instructions ?Recorded ?Confirmed ?Last Taken ?Type latanoprost 0.005 % eye drops 1 drp ophthalmic (eye) BEDTIME 11/07/20 08/18/24 09/17/23 History insulin aspart U-100 100 unit/mL 1 sliding scale dose subcut TIDAC 09/18/23 08/18/24 Unknown History (3 mL) subcutaneous pen aspirin 81 mg tablet,delayed 81 mg PO DAILY@0800 05/02/24 08/18/24 08/16/24 History release atorvastatin 20 mg tablet 20 mg PO DAILY@199905/02/24 08/18/24 05/01/24 20:00 History cyclobenzaprine 10 mg tablet 10 mg PO DAILY@1999 muscle spasm 05/02/24 08/18/24 05/01/24 20:00 History fenofibrate nanocrystallized 145 145 mg PO DAILY@0800 05/02/24 08/18/24 05/02/24 08:00 History mg tablet hydralazine 25 mg tablet 25 mg PO TID@0800,1299,199905/02/24 08/18/24 05/02/24 08:00 History icosapent ethyl 1 gram capsule 2 g PO BID@0800,199905/02/24 08/18/24 05/02/24 08:00 History (Vascepa) metformin 500 mg tablet,extended 1,000 mg PO BID@0800,199905/02/24 08/18/24 05/02/24 08:00 History release 24 hr sitagliptin phosphate 25 mg tablet 25 mg PO DAILY@0800 05/02/24 08/18/24 08/16/24 History (Januvia) furosemide 40 mg tablet 40 mg PO DAILY 05/19/24 08/18/24 Unknown History lidocaine 5 % topical patch 1 patch topical DAILY 05/19/24 08/18/24 Unknown History acetaminophen 325 mg capsule 650 mg PO Q6H PRN Pain 08/18/24 08/18/24 Unknown History bisacodyl 10 mg rectal suppository 10 mg OK DAILY PRN Constipation 08/18/24 08/18/24 Unknown History calcium carbonate 500 mg PO DAILY PRN Acid Reflux 08/18/24 08/18/24 Unknown History famotidine 20 mg tablet 20 mg PO BID 08/18/24 08/18/24 Unknown History gabapentin 100 mg capsule 100 mg PO BID 08/18/24 08/18/24 Unknown History magnesium hydroxide 400 mg/5 mL 5 ml PO DAILY PRN Constipation 08/18/24 08/18/24 Unknown History oral suspension naloxone 4 mg/actuation nasal 4 mg intranasal Q3M PRN Opioid 08/18/24 08/18/24 Unknown History spray (Narcan) Overdose sennosides 8.6 mg capsule (senna) 8.6 mg PO BEDTIME PRN Constipation 08/18/24 08/18/24 Unknown History Exam Height,Weight and Vital Signs: Height 5 ft 8 in Weight 87.5 kg Last Vital Signs Temp 96.7 F L 08/19/24 09:42 Pulse 97 08/19/24 09:42 Resp 16 08/19/24 09:42 BP 106/55 L 08/19/24 09:42 Pulse Ox 93 08/19/24 09:42 O2 Del Method Room Air 08/19/24 09:42 Pertinent Lab Results Pertinent Lab Results: Laboratory Tests 08/19/24 09:40 POC Glucose 156 H Airway Mallampati Class: II TM Dist: >3cm Neck ROM: Full Heart: RRR Lungs: CTA Assessment and Plan Assessment Anesthesia Assessment: Anesthesia Plan Discussed and Chart Reviewed Final Anesthetic Review Family History of Problems with Anesthesia: No History of Problems with Anesthesia: No NPO: Yes ASA Class: III Final Preanesthetic Review: Meds/Allgs Chart Reviewed, Consent Obtained/Reviewed and Anes Risks/Benef Reviewed Patient Risk: Intermediate Procedure Risk: Intermediate Anesthetic Plan Anesthetic Plan: GA Disposition: Standard PACU
--- NOTE | 2024-08-19 12:15 | W.PM.OPN ---
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 I have explained the nature, purpose and benefits of the operation. I have discussed the risks and benefit of the operation including possible complications or adverse events with patient/family. Alternative(s) were discussed with the patient with their relative benefits and risks as well as the consequences of not accepting the operation were included in obtaining consent. Surgeon: JOLEEN LIM MD, PHD Procedure Assisted By: Renan freitas Description of Procedure: This 68-year-old male developed progressive quadriparesis while in rehab. Eventually an MRI of the cervical spine was done which showed severe spinal cord compression at C4-5 and C5-C6 with myelomalacia. Was offered a decompression of the levels to stabilize his neurological symptoms. The procedure and complications were explained. The patient was consented. The patient was brought to the operating room and endotracheally intubated. The patient was put in supine position with slight extension of the neck. Prep and drape was done followed by timeout. A mid cervical incision was made followed by opening of the platysma. The prevertebral fascia was reached following the natural planes while the physician psychiatric technician assistant provided manual retraction. The prevertebral fascia was opened large anterior osteophytes. The high-speed drill was used to remove these osteophytes that spanned from C4-C6 to expose the disc levels. A spinal needle was placed in the disk space to confirm the correct level with xray. A self retaining retractor was inserted. The high-speed drill was also used to perform the diskectomy at C5-C6 towards the posterior longitudinal ligament. Two [place] pins were placed in the C4 and C5 vertebral bodies and distraction was give over the interspace. The discectomy was completed after which the posterior longitudinal ligament was opened. The microscope was brought in. The posterior ligament was resected to expose the underlying dura. Large Osteophytes were resected from the body of C4 and C5 and saved for autograft. Severe spinal cord compression was present and relieved after the osteophytes were resected. Bilateral foraminotomies were done. The endplates were prepared after which a 7 mm cage filled with autograft was inserted into the disc space. A separate attached plate was locked down with 2 x 14 mm screws as anterior instrumentation. Then attention was turned to the C5-C6 level. High-speed drill was used to drill down posterior osteophytes. The posterior longitudinal ligament was opened with a 1. And 2 [place] and resected. Again very large osteophytes were resected from the body of C5-C6 to provide decompression of the spinal cord. Bilateral foraminotomies were done. A 7 mm cage filled with autograft was inserted into the disc space. A separate attached plate was locked down with 2 x 14 mm screws. Final x-rays in AP and lateral projection showed a satisfactory position of the implants and anterior instrumentation. The physician psychiatric technician assistant took over. The [place] pin was removed. Hemostasis was done. He closed the incision in 2 layers with a 3-0 Vicryl. Steri-Strips used to approximate incision. An OpSite with Tegaderm was used to cover the incision. All sponge and needle counts were correct. Patient was extubated and transported in stable is to recovery room. Anesthesia: General Estimated Blood Loss (ml): 40 mL Duration of Surgery: 2 hours Postoperative Plan: Discharge home Complications: None
[2024-08-19] MEDS: fentaNYL citrate/PF 100 MCG/2 ML VIAL 25 MCG IVPUSH ×4 (12:49→13:05)
[2024-08-19] MEDS: HYDROmorphone HCl 0.5 MG/0.5 ML SYRINGE 0.25 MG IVPUSH (13:12)
--- NOTE | 2024-08-19 13:52 | HO.POSTANES ---
Post Anesthesia Evaluation Post Anesthesia Evaluation Date of Service: 08/19/24 Vital Signs: Vital Signs Temp Pulse Resp BP Pulse Ox O2 Del Method O2 Flow Rate 08/19/24 13:35 97 14 101/59 L 95 Nasal Cannula 2 08/19/24 13:20 98 12 106/73 95 Nasal Cannula 2 08/19/24 13:15 98 14 105/72 94 Nasal Cannula 2 08/19/24 13:10 98 20 106/74 95 Nasal Cannula 2 08/19/24 13:05 96 18 100/63 96 Nasal Cannula 2 08/19/24 13:00 95 16 102/60 94 Nasal Cannula 2 08/19/24 13:00 20 08/19/24 12:55 92 16 101/58 L 94 Nasal Cannula 2 08/19/24 12:50 95 18 120/71 94 Nasal Cannula 2 08/19/24 12:49 19 08/19/24 12:45 91 18 111/69 94 Nasal Cannula 2 08/19/24 12:40 95 20 106/74 94 Nasal Cannula 2 08/19/24 12:35 97.5 F 90 16 138/79 97 Simple Mask 6 08/19/24 09:42 96.7 F L 97 16 106/55 L 93 Room Air Anesthesia: General Endotracheal-GETA and General Mental Status: Awake Pain Control: Satisfactory Nausea/Vomiting: None Hydration: Adequate Anesthesia-Related Issues: No Anes. Related Issues
== END 2024-08-19 15:47 | disposition home or self-care (01) ==
LOC: HO.SSS 08:43
PROVIDERS: PCP Internal Medicine; Visit Provider Neurological Surgery
PROC: (CPT 22551; principal; 2024-08-19 10:00)
DX: G95.20 Unspecified cord compression (principal); M50.021 Cervical disc disorder at C4-C5 level with myelopathy; M50.022 Cervical disc disorder at C5-C6 level with myelopathy; I12.9 Hypertensive chronic kidney disease with stage 1 through stage 4 chronic kidney disease, or unspecified chronic kidney disease; E11.22 Type 2 diabetes mellitus with diabetic chronic kidney disease; N18.30 Chronic kidney disease, stage 3 unspecified; Z79.4 Long term (current) use of insulin; Z79.84 Long term (current) use of oral hypoglycemic drugs; Z79.82 Long term (current) use of aspirin; Z79.899 Other long term (current) drug therapy; Z88.0 Allergy status to penicillin; Z87.891 Personal history of nicotine dependence
CPT/HCPCS: 22551; 22552; 22853; 20936; 22845; 82947; C1713; C1889; J0131; J1100; J1171; J1596; J2003; J2250; J2371; J2405; J2704; J3010; J3371

== ENCOUNTER → 2024-08-19 08:42 | Outpatient (BNV) | payer OTHER, SELFPAY | PROVIDERS: PCP Internal Medicine; Visit Provider Neurological Surgery | DX: G95.20 Unspecified cord compression (principal); M50.022 Cervical disc disorder at C5-C6 level with myelopathy; M50.021 Cervical disc disorder at C4-C5 level with myelopathy; G82.50 Quadriplegia, unspecified | CPT/HCPCS: 20936; 22551; 22552; 22845; 22853; 99499 ==

== ENCOUNTER 2024-08-21 11:59 | Emergency (ER) | payer OTHER, SELFPAY ==
--- NOTE | ~2024-08-21 | CT_ITS ---
CLINICAL HISTORY: ANTERIOR DISCECTOMY NOW DIFFICULTY SWALLOWING CT cervical spine without contrast Comparison: CT/SR - CT CERVICAL SPINE WO IV CON - 08/13/24 16:20 EST Findings: Acute postsurgical changes are noted from C4 through C6 with somewhat prominent prevertebral soft tissue edema and foci of gas. No drainable fluid collection identified. Stranding extends anteriorly and inferiorly along the thyroid gland bilaterally. Straightening of the normal cervical lordosis. Complete disc space loss throughout much of the cervical spine most pronounced at C6-7 and T1-T2. Facet joints are normally imbricating. Lung apices are clear. Impression: Acute postsurgical changes with prominent prevertebral soft tissue edema and scattered soft tissue gas as detailed. There is no drainable fluid collection or abscess currently. This document has been electronically signed by: Tapan James MD on 08/21/2024 13:36:24
--- NOTE | 2024-08-21 12:05 | ED.GENADULT ---
HPI - General Adult General Chief complaint: General Medical Stated complaint: DIFFICULTY BREATHING Time Seen by Provider: 08/21/24 11:59 Source: patient, EMS and old records reviewed Mode of arrival: EMS Limitations: no limitations History of Present Illness ED Provider: TONEY KINNEY narrative: 68 yo male with PMH of CHFpEF, HTN, BPH, HLD, DM, hx of progressive quadriparesis while in rehab - MRI showed severe spinal cord compression at C4-C5 and C5-C6 wth myelomalacia. He just underwent C4-C5, C5-C6 anterior discectomy, arthrodesis and implantation cage on 08/19/[address] Isabel, aspirin was held. He returns today with c/o sore throat he can swallow but it is very painful and cannot swallow anything but water since the surgery. He has a hoarsce voice. He cannot keep any of his pills down. He has pain at anterior site of neck. No new numbness, weakness reported. He can keep water down but it is very painful MD complaint: painful swallowing Onset (ago): day(s) (2) Location: mouth Radiation: non-radiation Severity: moderate Quality: burning and aching Pain Consistency: intermittent Relieving factors: none Exacerbating factors: other (swallowing) Associated symptoms: denies other symptoms Treatments prior to arrival: none Related Data Home Medications ?Medication ?Instructions ?Recorded ?Confirmed latanoprost 0.005 % eye drops 1 drp ophthalmic (eye) BEDTIME 11/07/20 08/18/24 insulin aspart U-100 100 unit/mL 1 sliding scale dose subcut TIDAC 09/18/23 08/18/24 (3 mL) subcutaneous pen aspirin 81 mg tablet,delayed 81 mg PO DAILY@0800 05/02/24 08/18/24 release atorvastatin 20 mg tablet 20 mg PO DAILY@199905/02/24 08/18/24 cyclobenzaprine 10 mg tablet 10 mg PO DAILY@1999 muscle spasm 05/02/24 08/18/24 fenofibrate nanocrystallized 145 145 mg PO DAILY@0800 05/02/24 08/18/24 mg tablet hydralazine 25 mg tablet 25 mg PO TID@0800,1300,199905/02/24 08/18/24 icosapent ethyl 1 gram capsule 2 g PO BID@0800,199905/02/24 08/18/24 (Vascepa) metformin 500 mg tablet,extended 1,000 mg PO BID@0800,199905/02/24 08/18/24 release 24 hr sitagliptin phosphate 25 mg tablet 25 mg PO DAILY@0800 05/02/24 08/18/24 (Januvia) furosemide 40 mg tablet 40 mg PO DAILY 05/19/24 08/18/24 lidocaine 5 % topical patch 1 patch topical DAILY 05/19/24 08/18/24 acetaminophen 325 mg capsule 650 mg PO Q6H PRN Pain 08/18/24 08/18/24 bisacodyl 10 mg rectal suppository 10 mg HI DAILY PRN Constipation 08/18/24 08/18/24 calcium carbonate 500 mg PO DAILY PRN Acid Reflux 08/18/24 08/18/24 famotidine 20 mg tablet 20 mg PO BID 08/18/24 08/18/24 gabapentin 100 mg capsule 100 mg PO BID 08/18/24 08/18/24 magnesium hydroxide 400 mg/5 mL 5 ml PO DAILY PRN Constipation 08/18/24 08/18/24 oral suspension naloxone 4 mg/actuation nasal 4 mg intranasal Q3M PRN Opioid 08/18/24 08/18/24 spray (Narcan) Overdose sennosides 8.6 mg capsule (senna) 8.6 mg PO BEDTIME PRN Constipation 08/18/24 08/18/24 Previous Rx's ?Medication ?Instructions ?Recorded walker #1 ea 01/12/21 blood pressure monitor #1 ea 05/08/22 chair lift #1 ea 09/11/22 walker (Ultra-Light Rollator [facility] [place]) #1 ea 03/14/23 leg copy technician #1 ea 04/22/23 sock aid #1 ea 04/22/23 flash glucose scanning reader #1 ea 04/25/23 (FreeStyle Tirso 14 Day Reeder) Shower Chair #1 ea 05/13/23 Brace,wrist #1 ea 06/02/23 flash glucose sensor (FreeStyle #2 ea 09/13/23 Tirso 2 Sensor kit) pen needle, diabetic 31 gauge x #200 ea 01/30/24 5/16 adult diapers pull-ups #240 ea 04/15/24 bed rail #1 ea 04/15/24 commode (bedside commode) #1 ea 04/15/24 wipes #400 ea 04/15/24 compr.stocking,knee,long,x-lrg #12 ea 04/21/24 hospital bed #1 ea 04/22/24 oxycodone 10 mg tablet 10 mg PO Q6H PRN pain 30 days #120 04/23/24 tabs amlodipine 2.5 mg tablet 2.5 mg PO DAILY #1 tab 05/06/24 benazepril 40 mg tablet 10 mg (1/4 x 40 mg) PO DAILY@199905/06/24 #1 tab polyethylene glycol 3350 17 gram 17 g PO DAILY PRN Constipation #1 05/06/24 oral powder packet ea tamsulosin 0.4 mg capsule 0.4 mg PO DAILY #1 cap 05/06/24 cholecalciferol (vitamin D3) 50 50 mcg PO DAILY #90 tabs 06/14/24 mcg (2,000 unit) tablet wheelchair electric #1 ea 06/17/24 Allergies Allergy/AdvReac Type Severity Reaction Status Date / Time Penicillins [PENICILLINS] Allergy Severe RASH Verified 08/21/24 12:16 jay pepper Allergy Intermediate Rash Verified 08/21/24 12:16 pepper (genus Capsicum) AdvReac Intermediate rashes Verified 08/21/24 12:16 Review of Systems Review of Systems: Constitutional : No Fever, No Chills, No Fatigue ENT/Mouth : pos sore throat, No Rhinorrhea Eyes: No Eye Pain, No Swelling, No Redness Cardiovascular : No Chest Pain, No SOB, No Dyspnea on Exertion Respiratory : No Cough, No Sputum Gastrointestinal : No Nausea, No Vomiting, No Diarrhea, No abdominal Pain Genitourinary : No Dysuria, No Urinary Frequency, No Hematuria, Musculoskeletal : No joint pain, No Myalgias, No Joint Swelling Skin : No Skin Lesions, No rash Neuro : No Weakness, No Numbness, No Dizziness, All other systems reviewed and are negative PMFSH Past Medical History Attestation statement: The following information was validated with the patient. Source: old records reviewed Medical History GERD (gastroesophageal reflux disease) Acute cholecystitis due to biliary calculus Numbness and tingling in right hand Numbness and tingling in left hand Essential hypertension Diabetes mellitus Knee osteoarthritis Mild recurrent major depression Mixed hyperlipidemia Right shoulder pain Right knee pain Left knee pain CKD (chronic kidney disease), stage III Low back pain Multiple falls Syncope DAVINA (acute kidney injury) Obesity due to excess calories Lumbar spondylosis Proteinuria Arthritis Hypertriglyceridemia Hypertension Diabetic polyneuropathy associated with type 2 diabetes mellitus Type 2 diabetes mellitus with other diabetic kidney complication Lumbar stenosis Surgical History History of cholecystectomy (09/19/23) History of surgery on lower extremity History of total left knee replacement (TKR) S/P evacuation of hematoma Hx of cataract surgery History of lumbar surgery Hx of eye surgery History of back surgery Family History Family History Father Medical history unknown Mother Hypertension Maternal Grandmother Medical history unknown Social History Social History Household Members: None Household Members Other:: self Housing: Apartment Housing Other:: currently at [facility] Are you a primary memory care program director to a significant other at home: No Do you presently have visiting nurse or other home services: 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) Alcohol intake: never Comment: Narciso lift Patient Tobacco Use Status: Former Tobacco user Tobacco use type: Cigarette Years Smoked: 25 e-Cigarette/Vaping Use: Never Used Second Hand Smoke Exposure: No Advance Directives: Yes Advance Directives on File: Yes Advance Directives Date on File: 05/12/23 service: Yes Current occupational status: disabled Cognitive needs: Yes (walker) Hearing needs: No Vision needs: Yes (reading glasses) Physical Exam ED Vital Signs: Vital Signs - 24 hr 08/21/24 12:14 08/21/24 16:00 Temperature 98.1 F 97.7 F Pulse Rate 111 H 108 H Respiratory Rate 20 15 Blood Pressure 129/64 131/77 Pulse Oximetry 97 94 Oxygen Delivery Method Room Air Room Air BMI result Body Mass Index 30.0 Appearance: Alert. Oriented X3. No acute distress. Eyes: Pupils equal, round and reactive to light. ENT: Pharynx mildly dry, no redness/exudates , raspy voice, no stridor palate elevates, tongue moving appropriately Neck: anterior incision no hematoma felt c/d/i no drainage CVS: Normal heart rate and rhythm. Pulses normal. Respiratory: No respiratory distress. Breath sounds normal. Abdomen: Soft and nontender. Skin: Skin warm and dry. Normal skin color. Normal skin turgor. Extremities: No lower extremity edema. No calf ttp Neuro: Oriented X 3. UE and LE more strenghth in upper but able to push down and wiggle toes, good strength in cottrell blower, SILT Medications Administered Discontinued Medications Generic Name Dose Route Start Last Admin Trade Name Freq PRN Reason Stop Dose Admin Sodium Chloride 500 mls @ 500 mls/hr 08/21/24 12:16 08/21/24 13:45 Ns IV 08/21/24 13:15 Infused .Q1H ONE Infusion Lidocaine HCl 15 ml 08/21/24 12:16 08/21/24 12:53 Lidocaine Hcl Viscous 2 % 15 Ml Solution MUCOUS MEM 08/21/24 12:17 15 ml ONCE ONE Administration Methylprednisolone Acetate 40 mg 08/21/24 13:40 08/21/24 14:13 Methylprednisolone Acetate 40 Mg Vial IM 08/21/24 13:41 40 mg ONCE ONE Administration Morphine Sulfate 4 mg 08/21/24 12:16 08/21/24 12:52 Morphine Sulfate 4 Mg/Ml Cartridge IVPUSH 08/21/24 12:17 4 mg ONCE ONE Administration Protocol Ondansetron HCl 4 mg 08/21/24 12:59 08/21/24 13:29 Ondansetron Hcl 4 Mg/2 Ml Vial IVPUSH 08/21/24 13:00 4 mg ONCE ONE Administration Medical Decision Making Medical Decision Making MDM Narrative: 68 yo male with PMH of CHFpEF, HTN, BPH, HLD, DM, hx of progressive quadriparesis while in rehab s/p C4-C5, C5-C6 anterior discectomy, arthrodesis and implantation cage on 08/19/[address] Isabel now states he cannot swallow or take his pills but he can keep water down. He does appear dry on exam but overall I watched him swallow and he seems to have a hard time with the mechanics, he has no signs of intra oral infection and the anterior incision is soft not tense. I am going to obtain hydrations labs, gentle fluids, CT scan for hematoma, etc Differential Diagnosis Differential Diagnoses: The differential diagnosis associated with the presentation includes irritation, dehydration, hematoma Admission/Observation Consideration of admission/observation: Escalation of care including admission/observation considered doing much better after depo steroids at this time stable for DC Consult Healthcare Provider Management of the patient was discussed with: Lead Cargoman Alvin FERNANDEZ from [facility] states this is normal post operative try to give IM depo steroids checked with pharmacy will give IM depo 40mg Lab Data [facility] Lab Attestation statement: I reviewed the patient's lab results. 08/21/24 12:38 08/21/24 12:38 Labs: Lab Results 08/21/24 Range/Units 12:38 WBC 13.0 H (4.8-10.8) X10*3/uL RBC 3.99 L (4.60-5.80) X10*6/uL Hgb 11.4 L (14.0-18.0) g/dl Hct 33.6 L (42.0-52.0) % MCV 84.2 (80.0-98.0) fL MCH 28.6 (27.0-33.0) pg MCHC 33.9 (31.0-36.0) g/dl RDW 20.5 H (11.0-16.0) % Plt Count 306 D (160-400) X10*3/uL MPV 11.3 (9.4-12.4) fL Immature Gran % (Auto) 0.3 (0.0-0.4) % Neut % (Auto) 76.5 H (45-73) % Lymph % (Auto) 11.7 L (20-40) % [place] % (Auto) 8.9 (2-11) % Eos % (Auto) 2.2 (0-4) % Baso % (Auto) 0.4 (0-2) % Lymph # (Auto) 1.5 (1.2-4.9) X10*3/uL [place] # (Auto) 1.2 (0.1-1.2) X10*3/uL Eos # (Auto) 0.3 (0.0-0.4) X10*3/uL Baso # (Auto) 0.1 (0.0-0.2) X10*3/uL Abs Immat Gran (auto) 0.04 H (0.00-0.03) X10*3/uL Absolute Neuts (auto) 9.9 H (2.0-8.3) x10*3/uL Absolute Nucleated RBC 0.000 (0.0-0.012) X10*3/uL Nucleated RBC % (auto) 0.0 (0.0-0.2) /100WBC ESR 23 H (0-15) MM/HR PT 12.1 (10.9-12.4) SEC INR 1.0 (0.9-1.1) Sodium 141 (135-145) mmol/L Potassium 4.2 (3.3-5.1) mmol/L Chloride 106 (96-108) mmol/L Carbon Dioxide 26 (22-29) mmol/L Anion Gap 13 (12-20) BUN 15 (9-16) mg/dL Creatinine 0.74 (0.5-1.4) mg/dL Estim Creat Clear Calc 103.8 Estimated GFR > 60 Random Glucose 191 H (60-115) mg/dL Calcium 9.2 (8.4-10.2) mg/dL Magnesium 1.9 (1.6-2.6) mg/dL Total Bilirubin 0.7 (0.0-1.0) mg/dL Direct Bilirubin 0.3 (0.0-0.5) mg/dL AST 37 (5-37) U/L ALT 24 (0-40) U/L Alkaline Phosphatase 47 (39-117) U/L C-Reactive Protein 7.26 H (< or = 0.50) mg/dL Total Protein 7.1 (6.5-8.0) g/dL Albumin 3.7 (3.5-5.0) g/dL Independent Interpretation I performed an independent interpretation of an: CT Scan Radiology Impression Discussion of test interpretation with radiology: I have reviewed the radiologist's reading. Independent Historian Clinical information obtained from an independent historian. History obtained from or confirmed by: EMS External Record Review External record reviewed: Inpatient record and Outpatient record Discharge Plan Discharge Clinical Impression: Odynophagia Patient Disposition: Home, Self-Care Instructions: Soft Diet (ED) Additional Instructions: given long acting steroid for now while having sore throat and pain please use soft liquid diet return for worsening symptoms, fevers, vomiting, weakness/numbness that is new or any other concerns follow up with Dr. Isabel as schedule Prescriptions: No Action (DME) terri Meléndezc See Rx Instructions .ROUTE .MEDSUPPLY Qty: 1 0RF Rx Instructions: As directed (DME) Ultra-Light Rollator Misc See Rx Instructions .ROUTE .MEDSUPPLY Qty: 1 0RF Rx Instructions: with seat (DME) sock aid See Rx Instructions .Route .MEDSUPPLY Qty: 1 0RF Rx Instructions: As directed (DME) leg copy technician See Rx Instructions .Route .MEDSUPPLY Qty: 1 0RF Rx Instructions: As directed (DME) FreeStyle Tirso 14 Day Reeder Misc See Rx Instructions .ROUTE .MEDSUPPLY Qty: 1 0RF Rx Instructions: As directed (DME) Shower Chair Misc See Rx Instructions .Route Qty: 1 0RF Rx Instructions: As directed (DME) Brace,wrist Misc See Rx Instructions .Route Qty: 1 0RF Rx Instructions: right hand wrist splint (DME) FreeStyle Tirso 2 Sensor Kit See Rx Instructions .Route Qty: 2 11RF Rx Instructions: As directed (DME) pen needle, diabetic 31 gauge x 5/16 needle See Rx Instructions subcut .MEDSUPPLY Qty: 200 4RF Rx Instructions: five times a day (DME) bed rail See Rx Instructions .Route .MEDSUPPLY Qty: 1 0RF Rx Instructions: As directed (DME) bedside commode Kit See Rx Instructions .Route Qty: 1 0RF Rx Instructions: As directed (DME) adult diapers pull-ups X-large See Rx Instructions .Route .MEDSUPPLY Qty: 240 11RF Rx Instructions: As directed (DME) wipes See Rx Instructions .Route .MEDSUPPLY Qty: 400 11RF Rx Instructions: As directed (DME) compr.stocking,knee,long,x-lrg Misc See Rx Instructions .Route Qty: 12 0RF Rx Instructions: As [id number] mmhg (DME) hospital bed Kit See Rx Instructions .Route Qty: 1 0RF Rx Instructions: As directed- full electric oxycodone 10 mg tablet 10 mg PO Q6H PRN (Reason: pain) 30 Days Qty: 120 0RF Rx Instructions: Partial Fill upon patient request. cholecalciferol (vitamin D3) 50 mcg (2,000 unit) tablet 50 mcg PO DAILY Qty: 90 0RF (DME) wheelchair electric See Rx Instructions .Route .MEDSUPPLY Qty: 1 0RF Rx Instructions: As directed latanoprost 0.005 % drops 1 drp ophthalmic (eye) BEDTIME Rx Instructions: 1 drop into both eyes insulin aspart U-100 100 unit/mL (3 mL) Insulin Pen 1 sliding scale dose subcut TIDAC Protocol: Insulin Correction Scale Less than or equal to 110 ---- Give (units): 0 111 to 150 Give (units): 0 151 to 200 Give (units): 2 201 to 250 Give (units): 4 251 to 300 Give (units): 6 301 to 350 Give (units): 8 Greater than 350 Give (units): 10 Call MD if Blood Glucose > : 350 famotidine 20 mg tablet 20 mg PO BID gabapentin 100 mg capsule 100 mg PO BID magnesium hydroxide 400 mg/5 mL Suspension 5 ml PO DAILY PRN (Reason: Constipation) bisacodyl 10 mg Suppository 10 mg HI DAILY PRN (Reason: Constipation) calcium carbonate 500 mg calcium (1,250 mg) Tablet,Chewable 500 mg PO DAILY PRN (Reason: Acid Reflux) senna 8.6 mg Capsule 8.6 mg PO BEDTIME PRN (Reason: Constipation) acetaminophen 325 mg Capsule 650 mg PO Q6H PRN (Reason: Pain) naloxone [Narcan] 4 mg/actuation [place],Non-Aerosol 4 mg INTRANASAL Q3M PRN (Reason: Opioid Overdose) Rx Instructions: spray 1 dose into ONE nostril; alternate nostrils w each dose until help arrives cyclobenzaprine 10 mg tablet 10 mg PO DAILY@1999 atorvastatin 20 mg tablet 20 mg PO DAILY@1999 hydralazine 25 mg tablet 25 mg PO TID@0800,1300,2000 aspirin 81 mg tablet,delayed release (DR/EC) 81 mg PO DAILY@0800 metformin 500 mg tablet extended release 24 hr 1,000 mg PO BID@08,1999 fenofibrate nanocrystallized 145 mg tablet 145 mg PO DAILY@0800 Januvia 25 mg tablet 25 mg PO DAILY@0800 icosapent ethyl [Vascepa] 1 gram capsule 2 g PO BID@799,1999 amlodipine 2.5 mg Tablet 2.5 mg PO DAILY Qty: 1 0RF Protocol: Hold for SBP< HOLD for SBP < : 90 tamsulosin 0.4 mg Capsule 0.4 mg PO DAILY Qty: 1 0RF benazepril 40 mg tablet 10 mg PO DAILY@1999 Qty: 1 0RF polyethylene glycol 3350 17 gram Powder In Packet 17 g PO DAILY PRN (Reason: Constipation) Qty: 1 0RF (DME) blood pressure monitor Kit See Rx Instructions .Route Qty: 1 0RF Rx Instructions: As directed (DME) chair lift See Rx Instructions .Route .MEDSUPPLY Qty: 1 0RF Rx Instructions: As directed furosemide 40 mg tablet 40 mg PO DAILY lidocaine 5 % adhesive patch,medicated 1 patch topical DAILY Rx Instructions: leave on most painful area for up to 12 hrs Print Language: Gibraltarian
[2024-08-21 12:14] VITALS: BP 129/64; PULSE 111; RESP 20; TEMP 36.7; O2SAT 97
[2024-08-21] MEDS: 0.9 % Sodium Chloride 500 ML IV (12:40)
[2024-08-21 12:42] LABS: MANUAL DIFF FLAG NO
[2024-08-21 12:43] LABS: Basophils Absolute Auto 0.1 X10*3/uL (0.0-0.2); Basophils Percent Auto 0.4 % (0-2); Eosinophils Absolute Auto 0.3 X10*3/uL (0.0-0.4); Eosinophils Percent Auto 2.2 % (0-4); Hematocrit 33.6 % (42.0-52.0); Hemoglobin 11.4 g/dl (14.0-18.0); Imm Gran Abs Auto 0.04 X10*3/uL (0.00-0.03); Imm Gran Pct Auto 0.3 % (0.0-0.4); Lymphocytes Absolute Auto 1.5 X10*3/uL (1.2-4.9); Lymphocytes Percent Auto 11.7 % (20-40); Mean Corpuscular HGB Conc 33.9 g/dl (31.0-36.0); Mean Corpuscular Hemoglobin 28.6 pg (27.0-33.0); Mean Corpuscular Volume 84.2 fL (80.0-98.0); Mean Platelet Volume 11.3 fL (9.4-12.4); Monocytes Absolute Auto 1.2 X10*3/uL (0.1-1.2); Monocytes Percent Auto 8.9 % (2-11); Neutrophils Absolute Auto 9.9 x10*3/uL (2.0-8.3); Neutrophils Percent Auto 76.5 % (45-73); Platelet Count 306 X10*3/uL (160-400); Red Blood Count 3.99 X10*6/uL (4.60-5.80); Red Cell Distribution Width 20.5 % (11.0-16.0)
[2024-08-21 12:48] LABS: Prothrombin Time 12.1 SEC (10.9-12.4)
[2024-08-21] MEDS: Morphine Sulfate 4 MG/ML CARTRIDGE IVPUSH (12:52)
[2024-08-21] MEDS: Lidocaine HCl Viscous 2 % 15 ML SOLUTION MUCOUS MEM (12:53)
[2024-08-21 12:57] LABS: Alanine Aminotransferase 24 U/L (0-40); Albumin Level 3.7 g/dL (3.5-5.0); Alkaline Phosphatase 47 U/L (39-117); Anion Gap 13 (12-20); Aspartate Amino Transferase 37 U/L (5-37); Bilirubin Direct 0.3 mg/dL (0.0-0.5); Bilirubin Total 0.7 mg/dL (0.0-1.0); Blood Urea Nitrogen 15 mg/dL (9-16); C Reactive Protein 7.26 mg/dL (< or = 0.50); Calcium 9.2 mg/dL (8.4-10.2); Carbon Dioxide 26 mmol/L (22-29); Chloride 106 mmol/L (96-108); Creatinine Clr Calc Pharmacy 103.8; Estimated Glomerular Filt Rate > 60; Glucose Random 191 mg/dL (60-115); Magnesium 1.9 mg/dL (1.6-2.6); Potassium 4.2 mmol/L (3.3-5.1); Sodium 141 mmol/L (135-145); Total Protein 7.1 g/dL (6.5-8.0)
[2024-08-21 13:22] LABS: Erythrocyte Sedimentation Rate 23 MM/HR (0-15)
[2024-08-21] MEDS: ondansetron HCL 4 MG/2 ML VIAL IVPUSH (13:29)
--- NOTE | 2024-08-21 13:41 | HO.NEURO.PN ---
Neurosurgery Operative Note Date of Service: 08/21/24 Narrative: Carlos is a 68-year-old male who underwent C4-C5, C5-C6 ACDF on 08/19/2024. He presents to the emergency department today because he has had some difficulty with swallowing since his surgery, but is otherwise doing well. He has only been able to tolerate liquids, and even when swallowing liquids he experiences pain. Thankfully, he states that his strength feels much better in both his upper extremities and now his lower extremities. He has little to no pain aside from some right-sided shoulder pain that he had prior to surgery and some posterior neck pain which is expected after ACDF. He has been tolerating his current medication regimen but has been having a difficult time swallowing pills. He continues to remain at the rehab facility that he was discharged to after the surgery. On examination the patient is awake, alert, no acute distress. He was sitting in an examination bed in the emergency department when I saw him today. He has improved strength compared to his preoperative examination. He has full strength in his left upper extremity, but continues with limited strength on his right side due to a shoulder injury. 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 His lower extremity strength is the most impressive, and is at about 4/5 with dorsiflexion, plantar flexion, EHL, knee extension. However his knee flexion and iliopsoas testing remains around a 3/5. His anterior dressing is removed, and the Steri-Strips are in place with no signs of drainage or leakage. Carlos is a 68-year-old male who underwent C4-C5, C5-C6 ACDF on 08/19/2024. He is progressing normally aside from difficulties with swallowing since his surgery. This is likely secondary to postoperative inflammation compressing near the esophagus. Our colleagues in the emergency department of attempted to give him viscous lidocaine to help him with the swallowing, but he still feels he has some pain even when swallowing liquids. Typically, and situation such as this we attempt to send the patient in a prednisone Dosepak to help reduce some of the swelling. The patient is diabetic, but his A1c is well controlled at 7.5. His labs are good today and show no evidence of kidney issue or injury with GFR at 103. I recommend a dose of IM steroids in the ED and DC back to his rehab program with Methylpred dose pack when he is able to tolerate swallowing pills. This was discussed with the attending neurosurgeon Dr. Isabel who is in agreement. Theron Isabel MD,PhD [facility]
[2024-08-21] MEDS: methylPREDNISolone acetate 40 MG VIAL IM (14:13)
[2024-08-21 16:00] VITALS: BP 131/77; PULSE 108; RESP 15; TEMP 36.5; O2SAT 94
[2024-08-21 22:07] VITALS: BP 146/65; PULSE 98; RESP 18; TEMP 37.2; O2SAT 95
--- NOTE | 2024-08-21 22:07 | PC.NURSE ---
this rn assumed care at 210. ems at bedside for transport back to facility. vss.
== END 2024-08-21 22:09 | disposition home or self-care (01) ==
PROVIDERS: Emergency Provider Emergency Medicine; PCP Internal Medicine
DX: R13.12 Dysphagia, oropharyngeal phase (principal); R06.02 Shortness of breath; R11.0 Nausea; M54.2 Cervicalgia; J02.9 Acute pharyngitis, unspecified; Z87.891 Personal history of nicotine dependence; Z79.899 Other long term (current) drug therapy
CPT/HCPCS: 36415; 72126; 80048; 80076; 83735; 85025; 85610; 85652; 86140; 96361; 96372; 96374; 96375; 99284; J1010; J2270; J2405

== ENCOUNTER → 2024-08-21 12:09 | Outpatient (BNV) | payer OTHER, SELFPAY | PROVIDERS: Emergency Provider Emergency Medicine; PCP Internal Medicine; Visit Provider Radiology Vascular & Interventional Radiology | DX: R13.10 Dysphagia, unspecified (principal); R22.1 Localized swelling, mass and lump, neck | CPT/HCPCS: 72126 ==

== ENCOUNTER → 2024-08-21 13:22 | Outpatient (BNV) | payer OTHER, SELFPAY | PROVIDERS: Emergency Provider Emergency Medicine; PCP Internal Medicine; Visit Provider Physician Assistant | DX: Z48.89 Encounter for other specified surgical aftercare (principal) | CPT/HCPCS: 99024 ==

== ENCOUNTER 2024-08-24 10:07 | Outpatient (AMB) | payer OTHER, SELFPAY ==
--- NOTE | 2024-08-24 10:08 | A.OFFVIS_ITS ---
Vital Signs 08/24/24 10:08 Height 5 ft 8 in Weight 197 lb BMI 30.0 Intake Visit Reasons: follow up s/p US 06/17/24 Intake Note: follow up US 06/17/24 for LE swelling. Pt states swelling has gone down and is not bothering him. Automatic Pilot Mechanic Required: No Accompanied by: Self / Same As Patient Allergies Penicillins [PENICILLINS] Allergy (Severe, Verified 08/24/24 10:13) RASH jay pepper Allergy (Intermediate, Verified 08/24/24 10:13) Rash pepper (genus Capsicum) Adverse Reaction (Intermediate, Verified 08/24/24 10:13) rashes HPI HPI follow up s/p US 06/17/24: Details: Carlos is presenting today from his [facility] facility for a follow up to venous insufficiency ultrasound, performed on 06/17/2024. He denies any issues with lower extremity swelling or pain. He is status post C4-5 and C5-[address] Isabel from 08/19/24. He is having some dysphagia status post surgery, due to the anterior approach. He was given IM steroids as well as a Medrol Dosepak from the ER on 08/21. [facility] Medical History GERD (gastroesophageal reflux disease) Acute cholecystitis due to biliary calculus Numbness and tingling in right hand Numbness and tingling in left hand Essential hypertension Diabetes mellitus Knee osteoarthritis Mild recurrent major depression Mixed hyperlipidemia Right shoulder pain Right knee pain Left knee pain CKD (chronic kidney disease), stage III Low back pain Multiple falls Syncope DAVINA (acute kidney injury) Obesity due to excess calories Lumbar spondylosis Proteinuria Arthritis Hypertriglyceridemia Hypertension Diabetic polyneuropathy associated with type 2 diabetes mellitus Type 2 diabetes mellitus with other diabetic kidney complication Lumbar stenosis Surgical History History of cholecystectomy (09/19/23) History of surgery on lower extremity History of total left knee replacement (TKR) S/P evacuation of hematoma Hx of cataract surgery History of lumbar surgery Hx of eye surgery History of back surgery Family History Father Medical history unknown Mother Hypertension Maternal Grandmother Medical history unknown Social History Household Members: None Household Members Other:: self Housing: Apartment Housing Other:: currently at [facility] Are you a primary rn palliative care to a significant other at home: No Do you presently have visiting nurse or other home services: 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) Alcohol intake: never Comment: Narciso lift Patient Tobacco Use Status: Former Tobacco user Tobacco use type: Cigarette Years Smoked: 25 e-Cigarette/Vaping Use: Never Used Second Hand Smoke Exposure: No Advance Directives Date on File: 05/12/23 service: Yes Current occupational status: disabled Cognitive needs: Yes (walker) Hearing needs: No Vision needs: Yes (reading glasses) Review of Systems Const Reports as per HPI and Denies weakness ENT Reports Normal hearing present and Denies dizziness Card Reports as per HPI, Denies chest pain, Denies chest pain at rest, Denies chest pain with activity, Denies dyspnea and Denies dyspnea on exertion Resp Reports as per HPI, Denies cough, Denies dyspnea and Denies dyspnea on exertion GI Reports as per HPI, Denies abdominal pain, Denies nausea and Denies vomiting Musc Denies numbness Skin/Breast Reports as per HPI, Denies erythema and Denies wounds Neuro Reports Normal hearing present, Denies dizziness, Denies numbness, Denies Sensory deficit (Neuro) and Denies weakness Psych Reports no additional complaints Endo Reports no additional complaints Physical Exam Vital Signs: BMI result Body Mass Index 30.0 Const General: healthy appearing and no acute distress Orientation/consciousness: patient oriented x3 HEENT Head: Yes normal to inspection Ears: hearing grossly normal bilaterally Mouth: Normal oral and palatal mucosa present Resp Effort & Inspection: normal respiratory effort and able to speak in complete sentences Auscultation: clear to auscultation bilaterally Cardio Jugular venous distension: no JVD Rate: regular rate Rhythm: regular rhythm Heart sounds: S1 normal heart sound present and S2 normal heart sound present Bruits: no abdominal aortic bruits, no carotid bruits, no femoral bruits and no renal bruits Peripheral pulses: Peripheral pulses 2+ throughout GI Inspection: Yes normal to inspection Palpation (GI): No Abdominal aortic bruit present Skin General skin exam: no rashes or lesions noted Wounds: no wounds Hair: normal Neuro General: patient oriented x3 Cranial nerves: Yes Normal hearing present Cognition (Neuro): normal cognition Gait exam (Neuro): Normal gait present Motor exam (neuro): 5/5 motor strength present throughout Sensory Exam: No Sensory deficit (Neuro) Extrem Other: Bilateral feet: Slight discoloration noted from the ankles to the tips of the toes. Feet are cool to the touch, despite wearing socks, he is not in shoes. Palpable DP pulses. No ulcerations or wounds noted. Bilateral lower extremities: Trace peripheral edema noted bilaterally from mid gonzáles to ankles. General: Yes normal to inspection, Yes full ROM, Yes capillary refill normal and Yes normal gait Results Reviewed Results Reviewed: Brief summary of venous insufficiency testing is as follows: right great saphenous vein: negative with the exception right [id number] with reflux noted. No concurrent physical exam for varicosity/pain. right small saphenous vein: negative right accessory vein: none present left great saphenous vein: negative left small saphenous vein: negative left accessory vein: none present Please note there is no evidence of any venous aneurysms or significant tortuosity Assessment & Plan Assessment & Plan (1) Varicose veins of both lower extremities with inflammation: Code(s): I83.11 - Varicose veins of right lower extremity with inflammation; I83.12 - Varicose veins of left lower extremity with inflammation Category: Medical Plan: Carlos is presenting for a follow up to venous insufficiency ultrasound, performed on 06/17/2024. He is also status post C4-5 and C5-[address] Isabel on 06/18. He is currently in rehab at [facility]. He states the swelling has mostly gone away and denies any lower extremity pain or concerns today. The ultrasound was negative for venous insufficiency with the exception of small reflux noted below the knee on the right great saphenous vein. We discussed that no follow up would be needed at this point. We discussed the importance continuing with compression stockings, elevation, and physical activity, when he is able to. He is currently non nonambulatory but is working with PT and OT at rehab. We discussed the importance of continuing with physical activity when he is able to. Thank you for allowing us to participate in the patient's care. If there are any questions or concerns, please do not hesitate to reach out to us. Coding Level of Care Code Est Pt Level 4 (94221) Diagnoses Varicose veins of both lower extremities with inflammation I83.11; I83.12 Comment Review of venous insufficiency ultrasound
--- OUTSIDE RECORDS SUMMARY | 2024-08-24 11:02 | XMS_ITS | Clinical Summary ---
Author Organization [facility] Address [address] [place] [address] Care Team Providers Care Pocketbook Maker Name Role Phone Sade Dykes PA-C Primary Care Provider [phone] Source Comments PLEASE NOTE, if this patient [...] 60 Tab 0 12/01/19 14 Active Acidophilus-Pectin, [place] 25 million-100 cell-mg tabIndications:Dive rticulosis Take 1 tablet by mouth 2 (two) times daily. As directed by rotary cutter 100 tablet 3 01/31/20 14 Active benazepril [...] of Treatment Not on file Insurance [facility] DENTAL [facility] [id number] Care Teams Pocketbook Maker Relationship Specialty Start Date End Date Sade Dykes PA-C [address] [place] [address] [facility] - General 04/14/13
--- OUTSIDE RECORDS SUMMARY | 2024-08-24 11:02 | XMS_ITS | Encounter Summary ---
Author Organization [facility] Address [address] [place] [address] Care Team Providers Care Material Handling Supervisor Name Role Phone Tram Álvarez MD Primary Care Provider Encounter Details Date Type Department Care Team (Late st Contact Info) Description 08/05/2024 Lab Requisition [facility] - Main Lab [address] [place] [address] Prince Le MD [address] [facility] [address] [place], [address] Type 2 diabetes mellitus without complications [...] mg/dL LAB CHEMISTRY METHOD 08/06/2024 9:31 AM [facility] Blood Venous blood specimen / Unknown Venipuncture / Unknown 08/06/2024 6:49 AM EST 08/06/2024 8:31 AM EST us Prince Le MD LAB BLOOD ORDERABLES Final Resul t [facility] [address] [place] [address], * Comprehensive metabolic panel (08/06/2024 6:49 AM EST) Sodium 140 133 - 145 mmol/L LAB CHEMISTRY METHOD 08/06/2024 9:31 AM [facility] Potassium 5.0 3.5 - 5.5 mmol/L LAB CHEMISTRY METHOD 08/06/2024 9:31 AM [facility] Chloride 106 96 - 110 mmol/L LAB CHEMISTRY METHOD 08/06/2024 9:31 AM [facility] CO2 30 21 - 32 mmol/L LAB CHEMISTRY METHOD 08/06/2024 9:31 AM [facility] Anion Gap 4 3 - 11 LAB CHEMISTRY METHOD 08/06/2024 9:31 AM [facility] Glucose 99 70 - 100 mg/dL LAB CHEMISTRY METHOD 08/06/2024 9:31 AM [facility] BUN 25 5 - 25 mg/dL LAB CHEMISTRY METHOD 08/06/2024 9:31 AM [facility] Creatinine 1.10 0.70 - 1.30 mg/dL LAB CHEMISTRY METHOD 08/06/2024 9:31 AM [facility] eGFR 73 >=60 mL/min/1. 73m2 LAB CHEMISTRY METHOD 08/06/2024 9:31 AM [facility] Comment:Calculation based on the??Chronic Kidney Disease Epidemiology Collaboration (CKD-EPI) equation refit??without adjustment for race. BUN/Creatinine Ratio 22.7 LAB CHEMISTRY METHOD 08/06/2024 9:31 AM [facility] Calcium 9.5 8.5 - 10.5 mg/dL LAB CHEMISTRY METHOD 08/06/2024 9:31 AM [facility] AST (SGOT) 33 10 - 42 unit/L LAB CHEMISTRY METHOD 08/06/2024 9:31 AM [facility] ALT (SGPT) 26 10 - 60 unit/L LAB CHEMISTRY METHOD 08/06/2024 9:31 AM [facility] Alkaline Phosphatase 51 42 - 121 unit/L LAB CHEMISTRY METHOD 08/06/2024 9:31 AM [facility] Total Protein 6.6 6.0 - 8.0 g/dL LAB CHEMISTRY METHOD 08/06/2024 9:31 AM [facility] Albumin 3.4 3.2 - 5.0 g/dL LAB CHEMISTRY METHOD 08/06/2024 9:31 AM [facility] Total Bilirubin 0.4 0.0 - 1.4 mg/dL LAB CHEMISTRY METHOD 08/06/2024 9:31 AM [facility] Blood Venous blood specimen / Unknown Venipuncture / Unknown 08/06/2024 6:49 AM EST 08/06/2024 8:31 AM EST us Prince Le MD LAB BLOOD ORDERABLES Final Resul t [facility] [address] [place] [address], * (ABNORMAL) Complete blood count (08/06/2024 6:49 AM EST) WBC 8.2 4.8 - 10.8 K/mcL LAB HEMETOLOGY METHOD 08/06/2024 9:12 AM [facility] RBC 4.50 4.50 - 5.50 M/mcL LAB HEMETOLOGY METHOD 08/06/2024 9:12 AM [facility] Hemoglobin 12.2(L) 13.5 - 17.5 g/dL LAB HEMETOLOGY METHOD 08/06/2024 9:12 AM [facility] Hematocrit 37.4(L) 42.0 - 54.0 % LAB HEMETOLOGY METHOD 08/06/2024 9:12 AM [facility] MCV 84.0 79.0 - 98.0 FL LAB HEMETOLOGY METHOD 08/06/2024 9:12 AM [facility] MCH 27.4 27.0 - 32.0 pcg LAB HEMETOLOGY METHOD 08/06/2024 9:12 AM [facility] MCHC 32.6 32.0 - 37.0 g/dL LAB HEMETOLOGY METHOD 08/06/2024 9:12 AM [facility] RDW 20.3(H) 11.0 - 15.0 % LAB HEMETOLOGY METHOD 08/06/2024 9:12 AM [facility] Platelets 351 130 - 400 K/mcL LAB HEMETOLOGY METHOD 08/06/2024 9:12 AM [facility] MPV 12.2(H) 7.0 - 11.0 FL LAB HEMETOLOGY METHOD 08/06/2024 9:12 AM [facility] NRBC 0.0 <1.0 % LAB HEMETOLOGY METHOD 08/06/2024 9:12 AM [facility] NRBC Absolute 0.00 <0.10 K/mcL LAB HEMETOLOGY METHOD 08/06/2024 9:12 AM [facility] Blood Venous blood specimen / Unknown Venipuncture / Unknown 08/06/2024 6:49 AM EST 08/06/2024 8:31 AM EST us Prince Le MD LAB BLOOD ORDERABLES Final Resul t [facility] [address] [place] [address], documented in this encounter Visit Diagnoses Diagnosis Type 2 diabetes mellitus without complications (CMS/HCC) documented in this encounter Care Teams Material Handling Supervisor Relationship Specialty Start Date End Date Tram Álvarez MD [address] [facility] , [address] [facility] D/B/A: [facility] [place] PCP - General Internal Medicine 03/30/18 documented as of this encounter
--- OUTSIDE RECORDS SUMMARY | 2024-08-24 11:02 | XMS_ITS | Continuity of Care Document ---
Author Organization [facility], [facility] Address [address] [place] [address] Care Team Providers Care Promotions Producer Name Role Phone LANG HERRERA Primary Care Provider [facility] - 4TH FLOOR OTHER Assessment [...] Address Organization Details Recorded Time Diabetes mellitus 93111609 Active 2019 YANG SWEET [address], [address], [facility] 0 09:29:33 Depressive disorder 12286136 Active 2019 YANG SWEET [address] , [address], [place], [address], [facility] 0 09:29:39 Essential hypertensio n 67907034 Active 2019 YANG SWEET [address], [address], [place], [address], [facility] 0 09:29:47 Hypercholes terolemia 04389758 Active 2019 YANG SWEET [address], [address], [place], [address], [facility] 0 09:29:57 Vitamin D deficiency 95077683 Active 2019 YANG SWEET [address], [address], [place], [address], [employer] [facility] 0 09:30:10 Insomnia 295638996 Active 2019 YANG SWEET [address], [address], [place], [address], [place] - [facility] 0 09:30:19 Spinal stenosis of lumbar region 65120568 Active 2019 YANG SWEET [address], [address], [place], [address], [place] - [facility] 0 09:30:43 Total knee replacement Active 2022 Sonja Gibbs NP [address] , [address], [place], [address], [employer] [facility] 3 09:12:50 Acute pain of joint of knee 3465144963718 04 Active 2022 Sonja Gibbs NP [address] [facility], [address], [place], [address], [employer] [facility] 3 09:14:53 Constipatio n 87543333 Active 2022 Sonja Gibbs NP [address] [facility], [address], [place], [address], [facility] 3 10:15:39 Osteoarthri tis of knee 478027388 Active 2022 Judie Camacho MD [address], [address], [place], [address], [facility] 3 20:37:14 Chronic kidney disease stage 1 965805022 Active 2022 Judie Camacho MD [address], [address], [place], [address], [facility] 3 20:53:16 Chronic diastolic heart failure 686385132 Active 2023 Judie Camacho MD [address], [address], [place], [address], [facility] 4 21:28:14 Chronic kidney disease stage 2 280347966 Active 2023 Judie Camacho MD [address], [address], [place], [address], [facility] 4 21:28:20 Problem Notes None recorded. Procedures Surgical History Date Name Laterality Status Provider Name and Address Organization Details Recorded Time laminotomy completed NURIA YANG BINGHAM [address], [address], [place], [address], [facility] 01/06/2020 09:27:06 Imaging Results None recorded. Procedure Notes None recorded. Medical Equipment None Reported. Allergies Allergen ID Allergen Name Allergen Category Reaction Reaction Severity Criticality Documentation Date Start Date Code Code System Note Provider Name and Address Organization Details Recorded Time 34604 Product containin g penicilli n (product) medicatio n rash Not available Not available 01/06/2020 65968 [id number] SNOMED Not Available Not Available Not Available [...] Details Last Updated DateTime 5 198.12 cm 21.7 kg/m2 65563.3 7 g 93 /min 18 /min 97.4 [degF] 94 % 94 % 115 mm[Hg] 77 mm[Hg] Sonja Gibbs NP [address] [facility], [address], [place], [address], [facility] 5 10:05:15 Social History Question Answer Notes LastModified by Organizat ion Details LastModified Time Tobacco Smoking Status Former Smoker Sonja Gibbs, DIAMOND [address], [address], [place], [address], [facility] 02/14/2023 10:11:47 Do You Have An Advance Directive? Yes FULL CODE No Dialysis And Okay To Use Nutrition-us e Hydration Information not available 02/14/2023 What Is Your Level Of Alcohol Consumption? Occasional Information not available 02/14/2023 How Much Tobacco Do You Chew? None [id number] Information not available 05/02/2020 What Is Your Code Status? Full Code Information not available 02/14/2023 Do You Or Have You Ever Used E-cigarettes Or Vape? Never Used Electronic Cigarettes [id number] Information not available 05/02/2020 Where Do You Live? Apartment Elevator Information not available 02/19/2023 Legal Guardian? No Informati on not available 02/14/2023 Do You Have A Medical Power Of Poultry Trimmer? Yes [id number] Information not available 05/02/2020 What Was The [...] Used Smokeless Tobacco? Never Used Smokeless Tobacco [id number] Information not available 05/02/2020 Do You Use Any Illicit Or Recreational Drugs? No Information not available 02/14/2023 Has Tobacco Cessation Counseling Been Provided? No N/a As Pt. No Longer Smokes Information not available 02/19/2023 How Many Years Have You Smoked Tobacco? 40 [id number] Information not available 05/02/2020 Do You Have [...] Influenza, adjuvanted, quadrivalent, PF 2 [facility] 09:57:53 Influenza, adjuvanted, quadrivalent, PF 3 [facility]2023 11:45:01 pneumococcal polysaccharide PPV23 8 completed [facility] 05/07/2024 15:50:52 influenza, unspecified formulation 4 completed [facility] 05/07/2024 15:51:08 SARS-COV-2 (COVID-19) vaccine, UNSPECIFIED 1 completed [facility] 05/07/2024 15:51:23 SARS-COV-2 (COVID-19) vaccine, UNSPECIFIED 1 completed [facility] 05/07/2024 15:51:30 SARS-COV-2 (COVID-19) vaccine, UNSPECIFIED 3 completed [facility] 05/07/2024 15:51:38 Past Encounters Encounter ID Performer Location Encounter Start Date Encounter Closed Date Diagnosis/Indication Diagnosis SNOMED-CT Code Diagnosis ICD10 Code Diagnosis Note [id number] Sonja Gibbs NP [address] [address] 07/30/2024 08:03:45 08/03/2024 12:50:06 Spinal stenosis of lumbar region 46363237 M48.062 With chronic back pain and weakness [...] in pmfu after cervical MRI sched 07/3107/29/24 [facility] with rec:neuros urgery consult with Dr Serna 07/30 referral to [facility] ordered as recommende d, has MRI today. contPT/OT prn, currently not working with himrandal yorkyer lift at this timeContin ue fall precaution s.Monitor for safety.Mon itor pain controlCel ebrex remains on hold. Asthenia 88664331 R53.1 remains with weakness to left leg and right arm, and today with right leg weaknessri ght arm sling and left knee brace on in am and off in pm per dr anderson's ordersPT/O T eval and treat prn, off regular therapymon itor Pain in right arm 740116 004 M79.601 Denies trauma or injury. feels [...] above for management Osteoarthr itis of knee 587473070 M17.12 Z96.652 LTKR originally done on 02/11remains [...] lower ext neg for acute concernsmo nitor [id number] Sonja Gibbs NP [facility] [address] [address] 08/04/2024 09:05:47 08/06/2024 09:42:06 Spinal stenosis of lumbar region 21159362 M48.062 With chronic back pain and weakness [...] rec for minimally invasive spine center at [facility] appt 2/3 07/29/24 [facility] with rec:neuros urgery consult [...] of c3 to the superior endplate of c5.[facility] sent pt referral:rich gabriel was rec for minimally invasive spine center at [facility] appt 08/09 contPT/OT prn, currently not working with himremAll [facility] [employer]. lift at this timeContin ue fall precaution s.Monitor for safety.Mon itor pain control see belowCeleb sandip remains on hold. Asthenia [id number] R53.1 remains with weakness to left leg and right arm, and today with right leg weaknessri ght arm sling and left knee brace on in am and off in pm per dr anderson's ordersPT/O T eval and treat prn, off regular therapymon itor Pain in right arm 791547 004 M79.601 Denies trauma or injury. feels [...] ordered by alma rosa, as aboveMonit or closely. e above for management Osteoarthr itis of knee 983582389 M17.12 Z96.652 LTKR originally done on 02/11remains [...] neg for acute concernsmo nitor Diabetes mellitus 793055 09 E11.9 Last HgA1C was 7.9 in 11/2023.Fol low[place] [facility] [place] multiple low BS in am of 54, recheck BS came upContinue januvia 25 mg qdSSItruli city 1.5 weekly08/04 increase metformin 500 mg BID to 1000 mg po bid08/04 dc tresiba 20 units qhs for low BSMonitor fingerstic ks TID and HgA1C as outpt.(of note was on 35 units of insulin in recent past) Chronic pain 61489078 G8 9.29 followed by pain management here08/04 start gabapentin 100 mg po bidContinu eoxycodone 10 mg qid for painceleco xib 200 mg BIDAPAP 650 mg TID and q 4 hrs prn (NTE 3000 mg/d),Cont inue fall precaution s.Monitor for safety. Pain of left eye 5747698 001 85572 H57.12 reports left eye pain related to dropper touching his eye last nightno injuries or abnormalit y of eye notedwarm compress given at visit for comfort.mo nitor [id number] [facility] [address] [facility] [address] 08/09/2024 14:58:20 08/10/2024 11:35:43 Diabetes mellitus 04401889 E11.9 Last HgA1C was 7.9 in 11/2023.Fol lowed by endocrine at [facility] with multiple low BS in am of 47, recheck BS came up to 111Continu ejanuvia 25 mg qdSSImetfo rmin 1000 mg po bid2/3 dc trulicity 1.5 weekly(not e tresiba recently dc'd)Monit or fingerstic ks TID and HgA1C as outpt.(of note was on 35 units of long acting insulin in recent past) Chronic pain 69698436 G8 9.29 followed by pain management herecontga bapentin 100 mg po bidoxycodo ne 10 mg qid for painceleco xib 200 mg BIDAPAP 650 mg TID and q 4 hrs prn (NTE 3000 mg/d),Cont inue fall precaution s.Monitor for safety. Spinal mg nosis of lumbar region 85931577 M48.062 With chronic back pain and weakness [...] rec for minimally invasive spine center at [facility] appt 08/0907/29/24 [facility] with rec:neuros urgery consult [...] of c3 to the superior endplate of c5.[facility] sent pt referral:rich gabriel was rec for minimally invasive spine center at [facility] appt 08/09 08/04 referral to [facility] ordered as recommende d with MRI results back today 08/04 from 07/30 08/09 awaiting consult from spine center2/ fu appoint at minimally invasive spine center to discuss options08/[address] Aleisha padilla (neurosurg [place]) contPT/OT prn, currently not working with himremains barrington lift at this timeContin ue fall precaution s.Monitor for safety.Mon itor pain control see belowCeleb sandip remains on hold. Asthenia [id number] R53.1 remains with weakness to left leg and right arm, and today with right leg weaknessri ght arm sling and left knee brace on in am and off in pm per dr anderson's ordersPT/O T eval and treat prn, off regular therapymon itor Pain in right arm 570127 004 M79.601 Denies trauma or injury. feels [...] ordered by alma rosa, as aboveMonit or closely. e above for management Osteoarthr itis of knee 745512537 M17.12 Z96.652 LTKR originally done on 02/11remains [...] lower ext neg for acute concernsmo nitor [id number] Sonja Gibbs NP [address] [address] 08/20/2024 10:30:03 08/23/2024 10:20:02 Chronic pain 87911120 G89.29 followed by pain management herecontga bapentin 100 mg po bidoxycodo ne 10 mg qid for painceleco xib 200 mg BIDAPAP 650 mg TID and q 4 hrs prn (NTE 3000 mg/d),Cont inue fall precaution s.Monitor for safety. Spinal mg nosis of lumbar region 86730970 M48.062 With chronic back pain and weakness [...] rec for minimally invasive spine center at [facility] appt 2/3 07/29/24 [facility] with rec:neuros urgery consult [...] of c3 to the superior endplate of c5.[facility] sent pt referral:rich rios was rec for minimally invasive spine center at [facility] appt 08/09 08/04 referral to [facility] ordered as recommende d with MRI results back today 08/04 from 07/30 08/09 awaiting consult from spine center2/ fu appoint at minimally invasive spine center to discuss options08/[address] Aleisha padilla (neurosurg [place]) dc' [facility] spine center with Dr. Isabel did a anterior cervical discectomy and fusion.rec : Rec to stay hydrated, remove dressing on post day one and leave steri strips intact to fall off on there own. Activity as tolerated. Resume aspirin 81 mg po on 08/26/24 daily. Fu September 09 with clinic.08/07 4 dressing removed to anterior cervical site with steri strips left intake and pt feels he is able to move bilateral lower extremitie s more today.ice as tolerated per pt request to right neck todaycbc and bmp pending contPT/OT prn, currently not working with himremains barrington lift at this timeContin ue fall precaution s.Monitor for safety.Mon itor pain control see belowCeleb sandip remains on hold. Asthenia 98434646 R53.1 remains with weakness to left leg and right arm, and today with right leg weaknessri ght arm sling and left knee brace on in am and off in pm per dr anderson's ordersPT/O T eval and treat prn, off regular therapymon itor [id number] Sonja Gibbs NP [address] [address] 08/23/2024 09:57:33 08/23/2024 10:37:06 Spinal stenosis of lumbar region 19485203 M48.062 With chronic back pain and weakness [...] rec for minimally invasive spine center at [facility] appt /3 07/29/24 [facility] with rec:neuros urgery consult [...] of c3 to the superior endplate of c5.[facility] sent pt referral:rich gabriel was rec for minimally invasive spine center at [facility] appt 08/09 08/04 referral to [facility] ordered as recommende d with MRI results back today 08/04 from 07/30 08/09 awaiting consult from spine center08/11 fu appoint at minimally invasive spine center to discuss options08/07 Dr Aleisha padilla (neurosurg [place]) dc' [facility] spine center with Dr. Isabel did a anterior cervical discectomy and fusion.rec : Rec to stay hydrated, remove dressing on post day one and leave steri strips intact to fall off on there own. Activity as tolerated. Resume aspirin 81 mg po on 08/26/24 daily. Fu September 09 with clinic.08/07 dressing removed to anterior cervical site with steri strips left intake and pt feels he is able to move bilateral lower extremitie s more today.ice as tolerated per pt request to right neck todaycbc and bmp pending 08/21 went to ER for throat swelling rt surgery, was given steriod and sent back on soft diet 08/23 pt having diff swallowing meds this am see below contPT/OT prn, currently not working with himremains barrington lift at this timeContin ue fall precaution s.Monitor for safety.Mon itor pain control see belowCeleb sandip remains on hold. Chronic pain 52729653 G8 9.29 followed by pain management herecontga bapentin 100 mg po bidoxycodo ne 10 mg qid for painceleco xib 200 mg BIDAPAP 650 mg TID and q 4 hrs prn (NTE 3000 mg/d),Cont inue fall precaution s.Monitor for safety. Difficulty swallowing 28 8513587 R13.10 08/23 startpredn isone 40 mg po daily x 5 days, may crush and put in chocolate sauce to mask tastedieti destin consult for easy to swallow foodsadd glucerna tid with meals until able to tolerate foodschang e to liquid and puree diet until able to louise, and advancespe ech consult for diff swallowing asa resumed on ito r closely and follow labs and for diff swallowing Health Concerns Section Related Observation LastModified by Organization Detai ls LastModified Time None Recorded Concern Status LastModified by Organization Details LastModified Time None Recorded Payers Encounter Date Sequence Insurance Name Policy Number Policy Richardson Covered Member ID Richardson Member ID Guarantor Name 08/23/2024 1 [facility] - DOS ON OR AFTER 2022 - MEDICARE ADVANTAGE [place] (MEDICARE REPLACEMENT/ADV ANTAGE - PPO) Carlos Cabrera [id number] Carlos Cabrera Notes Date Note Type Note Provider Name and Address Organization Details Recorded Time 08/23/2024 text/html Carlos is seen fo r an acute rounding visit today. Carlos is a 68 yo male seen sp spinal surgery on 08/19/[address] Isabel for anterior cervical discectomy and fusion. Since back to [facility] he has had increased throat swelling from surgery and not tolerating meds or food per nursing. He was sent to Er on 08/19 and report a steriod was given in ER but no new orders except soft diet and no report of steriod amount or details. He is taking his oxycodone per pt. Prior surgery rec:Rec to stay hydrated, remove dressing on post day one and leave steri strips intact to fall off on there own. Activity as tolerated. Resume aspirin 81 mg po on 08/26/24 daily. Fu September 09 with clinic. On exam, He is lying on his back sitting up in bed, in NAD. He is upset he is having difficulty swallowing. Dressing to his mid neck c/d/i and steri strips intact without bleeding. No other concerns. vitals stable. His voice is within normal limits and able to take sips of fluids this am. Sonja Gibbs NP [address], [address], [place], [address], [facility] - [employer] 08/23/2024 10:37:04
--- OUTSIDE RECORDS SUMMARY | 2024-08-24 11:02 | XMS_ITS | Continuity of Care Document ---
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 4TH FLOOR OTHER Assessment No [...] Address Organization Details Recorded Time Diabetes mellitus [id number] Active 2019 YANG SWEET [address], [address], [facility] 0 09:29:33 Depressive disorder 46091996 Active 2019 YANG SWEET [address] , [address], [place], [address], [facility] 0 09:29:39 Essential hypertensio n 52433784 Active 2019 YANG SWEET [address], [address], [place], [address], [facility] 0 09:29:47 Hypercholes terolemia 11745997 Active 2019 YANG SWEET [address], [address], [place], [address], [facility] 0 09:29:57 Vitamin D deficiency 97390732 Active 2019 YANG SWEET [address], [address], [place], [address], [facility] 0 09:30:10 Insomnia 985914279 Active 2019 YANG SWEET [address], [address], [place], [address], [place] [facility] 0 09:30:19 Spinal stenosis of lumbar region 02064380 Active 2019 YANG SWEET [address], [address], [place], [address], [place] - [facility] 0 09:30:43 Total knee replacement Active 2022 Sonja Gibbs NP [address] , [address], [place], [address], [facility] 3 09:12:50 Acute pain of joint of knee 4246688718281 04 Active 2022 Sonja Gibbs NP [address], [address], [place], [address], [facility] 3 09:14:53 Constipatio n 81048662 Active 2022 Sonja Gibbs NP [address], [address], [place], [address], [facility] 3 10:15:39 Osteoarthri tis of knee 129122824 Active 2022 Judie Camacho MD [address], [address], [place], [address], [facility] 3 20:37:14 Chronic kidney disease stage 1 745600966 Active 2022 Judie Camacho MD [address], [address], [place], [address], [facility] 3 20:53:16 Chronic diastolic heart failure 938331109 Active 2023 Judie Camacho MD [address], [address], [place], [address], [facility] 4 21:28:14 Chronic kidney disease stage 2 833489646 Active 2023 Judie Camacho MD [address], [address], [place], [address], [facility] 4 21:28:20 Problem Notes None recorded. Procedures Surgical History Date Name Laterality Status Provider Name and Address Organization Details Recorded Time laminotomy completed NURIA YANG BINGHAM [address], [address], [place], [address], [facility] 01/06/2020 09:27:06 Imaging Results None recorded. Procedure Notes None recorded. Medical Equipment None Reported. Allergies Allergen ID Allergen Name Allergen Category Reaction Reaction Severity Criticality Documentation Date Start Date Code Code System Note Provider Name and Address Organization Details Recorded Time 19461 Product containin g penicilli n (product) medicatio n rash Not available Not available 01/06/2020 67531 8001 SNOMED Not Available Not Available Not [...] Details Last Updated DateTime 5 198.12 cm 93906.1 8 g 21.5 kg/m2 78 /min 18 /min 98.6 [degF] 97 % 97 % 131 mm[Hg] 74 mm[Hg] Sonja Gibbs NP [address], [address], [place], [address], [facility] 5 08:04:57 Social History Question Answer Notes LastModified by Organizat ion Details LastModified Time Tobacco Smoking Status Former Smoker Sonja Gibbs, DIAMOND [address], [address], [place], [address], [facility] 02/14/2023 10:11:47 Do You Have An Advance Directive? Yes FULL CODE No Dialysis And Okay To Use Nutrition-us e Hydration Information not available 02/14/2023 What Is Your Level Of Alcohol Consumption? Occasional Information not available 02/14/2023 How Much Tobacco Do You Chew? None [id number] Information not available 05/02/2020 What Is Your Code Status? Full Code Information not available 02/14/2023 Do You Or Have You Ever Used E-cigarettes Or Vape? Never Used Electronic Cigarettes [id number] Information not available 05/02/2020 Where Do You Live? Apartment Elevator Information not available 02/19/2023 Legal Guardian? 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 Never Used Smokeless Tobacco [id number] Information not available 05/02/2020 Do You Use Any Illicit Or Recreational Drugs? No Information not available 02/14/2023 Has Tobacco Cessation Counseling Been Provided? No N/a As Pt. No Longer Smokes Information not available 02/19/2023 How Many Years Have You Smoked Tobacco? 40 [id number] Information not available 05/02/2020 Do You Have [...] Influenza, adjuvanted, quadrivalent, PF 2 [facility] 09:57:53 Influenza, adjuvanted, quadrivalent, PF 3 [facility] 09/05/2023 11:45:01 pneumococcal polysaccharide PPV23 8 completed [facility] 05/07/2024 15:50:52 influenza, unspecified formulation 4 completed [facility] 05/07/2024 15:51:08 SARS-COV-2 (COVID-19) vaccine, UNSPECIFIED 1 completed [facility] 05/07/2024 15:51:23 SARS-COV-2 (COVID-19) vaccine, UNSPECIFIED 1 completed [facility] 05/07/2024 15:51:30 SARS-COV-2 (COVID-19) vaccine, UNSPECIFIED 3 completed [facility] 05/07/2024 15:51:38 Past Encounters Encounter ID Performer Location Encounter Start Date Encounter Closed Date Diagnosis/Indication Diagnosis SNOMED-CT Code Diagnosis ICD10 Code Diagnosis Note [id number] MARIE TORRES NP [address] [address] 07/01/2024 11:24:41 07/02/2024 11:53:48 Constipation 97356358 K59.09 Documented BM 06/24, 06/28Pt. states no [...] to scheduled dailyTo ER if condition worsens [id number] Sonja Gibbs NP [facility] [address] [address] 07/14/2024 13:30:49 07/16/2024 10:19:43 Diabetes mellitus 51728237 E11.9 Last HgA1C was 7.9 in 11/2023.Fol lowed by endocrine at [facility].with BS of 44 on 07/15 and similar in past, remains asymptomat icContinue trulicity 1.5 weekly, metformin 500 mg BID, januvia 25 mg qd, and SSI/ decrease (degludec) tresiba 26 U qd to 20 unitsMonit or fingerstic ks TID and HgA1C as outpt.of note was on 35 units of insulin in recent past Asthenia 27537535 R53.1 remains with weakness to left leg and right arm12 right arm and left knee brace on in am and off in pm per dr anderson's ordersPT/O T eval and treat prn, off regular therapymon itor [id number] Sonja Gibbs NP [facility] [address] [address] 07/22/2024 14:17:32 07/23/2024 15:07:54 Constipation 56676597 K59.09 with regular bm per patient todayCurre ntly no abd. pain, no N/V.BS [id number] e fluids, dietary fiber.cont senna plus 2 tabs qdmiralax dailyhouse bowel protocol prn Diabetes mellitus 682121 09 E11.9 Last HgA1C was 7.9 in 11/2023.Fol lowed by endocrine at [facility] with multiple low BS in amContinue trulicity 1.5 weeklymetf ormin 500 mg BIDanuvia 25 mg qd, and SSI(deglud ec)tresiba 20 unitsMonit or fingerstic ks TID and HgA1C as outpt.(of note was on 35 units of insulin in recent past) Asthenia 54998981 R53.1 remains with weakness to left leg and right arm, and today with right leg weaknessri ght arm and left knee brace on in am and off in pm per dr anderson's ordersPT/O T eval and treat prn, off regular therapymargareth mccullough Spinal mg nosis of lumbar region 24674915 M48.062 With chronic back pain. hx of [...] in pmfu after MRI sched /29/08 5 [facility] at 1 pm sched from outside providerco ntPT/OT for strengthen ing, balance, gait training, safety and function prnremains barrington lift at this timeContin ue fall precaution s.Monitor for safety.Margareth mccullough pain controlCel ebrex remains on hold. Pain in right arm 051205 004 M79.601 Denies trauma or injury. feels [...] above for management Osteoarthr itis of knee 837494908 M17.12 Z96.652 LTKR originally done on 02/11remains [...] concernsmo nitor Chronic di astolic heart failure 989378655 I50.32 per hosp report of CHF.he never [...] fluid status, wts and labs. Essential hypertension 09071473 I10 stableCont inue meds as above and amlodipine 2.5 mg qd.Monitor BP and labsDaily BPs ordered. Depressive disorder 3548 9007 F32.89 In hx.On no meds.Monit or mood.Psych consult prn. Benign pro static hyperplasia without outflow obstruction 120365755 N40.0 In hx, with some issues with retention at times.Cont inuetamsul osin 0.4 mg qd. Gastroesop hageal reflux disease without esophagitis 870534215 K21.9 Using TUMS frequently for GERD/GI sx. resolvingc ontpepcid 20 mg bidMonitor sx.If remain problemati c, consider trial of PPI Nausea and vomiting 1692 1999 R11.2 resolvedse e belowzofra n 4 mg po q 6 hours prn n/v x 30 days Chronic ki dney disease stage 2 652109531 N18.2 At baseline.C ontinue to avoid nephrotoxi c meds as able.Monit or labs.Renal consult prn. Hypercholesterolemia 136 80789 E78.2 Continueat orvastatin 20 mg qdfenofibr ate 145 mg qdvascepa 2 g BID,ASA 81 mg qd.Monitor labs as outpt. [id number] Sonja Gibbs NP [address] [place] [address] 07/30/2024 08:03:45 08/03/2024 12:50:06 Spinal stenosis of lumbar region 10528496 M48.062 With chronic back pain and weakness [...] in pmfu after cervical MRI sched 07/3107/29/24 [facility] with rec:neuros urgery consult with Dr Serna 07/30 referral to [facility] ordered as recommende d, has MRI today. contPT/OT prn, currently not working with [facility] at this timeContin ue fall precaution s.Monitor for safety.Mon itor pain controlCel ebrex remains on hold. Asthenia 57835546 R53.1 remains with weakness to left leg and right arm, and today with right leg weaknessri ght arm sling and left knee brace on in am and off in pm per dr anderson's ordersPT/O T eval and treat prn, off regular jean mccullough Pain in right arm 483950 004 M79.601 Denies trauma or injury. feels [...] above for management Osteoarthr itis of knee 119090568 M17.12 Z96.652 LTKR originally done on 02/11remains [...] Richardson Member ID Guarantor Name 07/30/2024 1 [facility] - DOS ON OR AFTER 2022 - MEDICARE ADVANTAGE [place] (MEDICARE REPLACEMENT/ADV ANTAGE - PPO) Carlos Olmedosoumya [id number] Carlos Crespotessie Notes Date Note Type Note Provider Name and Address Organization Details Recorded Time 07/30/2024 text/html Carlos is seen fo r an acute visit today. Carlos was originally admitted on 05/06 after a hospitalization for CHF exacerbation, edema, and weakness. CHF and edema resolved here. He has worked with rehab, but then plateaued and is now on [facility] care here. He is no longer receiving [...] His pcp Dr Jacinto referred him to [facility] with appt [...] has decreased strength also. 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 He reports pain is baseline with oxycodone and tolerable. Referral to Dr Serna is written for with all imaging to go with consult. Sonja Gibbs, DIAMOND [address], [address], [place], [address], [facility] 07/30/2024 09:06:11
--- OUTSIDE RECORDS SUMMARY | 2024-08-24 11:02 | XMS_ITS | Encounter Summary ---
Author Organization [facility] [place] Address [address] [place] [address] Care Team Providers Care Executive Director Of Nursing Name Role Phone Tram Álvarez MD Primary Care Provider [phone] Encounter Details Date Type Department Care Team (Late st Contact Info) Description 08/19/2024 Lab Requisition [facility] - Main Lab [address] [place] [address] Prince Le MD [address] [facility] [address] [place], [address] Type 2 diabetes mellitus without complications [...] Associated Diagnosis Comments COMPLETE BLOOD COUNT Routine 08/20/2024 7:39 AM EST Type 2 diabetes mellitus without complications (CMS/HCC) C-REACTIVE PROTEIN Routine 08/20/2024 7: 39 AM EST Type 2 diabetes mellitus without complications (CMS/HCC) COMPREHENSIVE METABOLIC PANEL Routine 08/20/2024 7:39 AM EST Type 2 diabetes mellitus without complications (CMS/HCC) documented in this encounter Results * (ABNORMAL) C-reactive protein (08/20/2024 7:39 AM EST) C-Reactive Protein 1.16(H) <=0.50 mg/dL LAB CHEMISTRY METHOD 08/20/2024 11:12 AM [facility] Blood Venous blood specimen / Unknown Venipuncture / Unknown 08/20/2024 7:39 AM EST 08/20/2024 10:36 AM EST us Prince Le MD LAB BLOOD ORDERABLES Final Resul t [facility] [address] [place] [address], * (ABNORMAL) Comprehensive metabolic panel (08/20/2024 7:39 AM EST) Sodium 139 133 - 145 mmol/L LAB CHEMISTRY METHOD 08/20/2024 11:11 AM [facility] Potassium 4.5 3.5 - 5.5 mmol/L LAB CHEMISTRY METHOD 08/20/2024 11:11 AM [facility] Chloride 109 96 - 110 mmol/L LAB CHEMISTRY METHOD 08/20/2024 11:11 AM [facility] CO2 26 21 - 32 mmol/L LAB CHEMISTRY METHOD 08/20/2024 11:11 AM [facility] Anion Gap 4 3 - 11 LAB CHEMISTRY METHOD 08/20/2024 11:11 AM [facility] Glucose 120(H) 70 - 100 mg/dL LAB CHEMISTRY METHOD 08/20/2024 11:11 AM [facility] BUN 22 5 - 25 mg/dL LAB CHEMISTRY METHOD 08/20/2024 11:11 AM [facility] Creatinine 0.78 0.70 - 1.30 mg/dL LAB CHEMISTRY METHOD 08/20/2024 11:11 AM [facility] eGFR 97 >=60 mL/min/1. 73m2 LAB CHEMISTRY METHOD 08/20/2024 11:11 AM [facility] Comment:Calculation based on the??Chronic Kidney Disease Epidemiology Collaboration (CKD-EPI) equation refit??without adjustment for race. BUN/Creatinine Ratio 28.2 LAB CHEMISTRY METHOD 08/20/2024 11:11 AM [facility] Calcium 9.3 8.5 - 10.5 mg/dL LAB CHEMISTRY METHOD 08/20/2024 11:11 AM [facility] AST (SGOT) 35 10 - 42 unit/L LAB CHEMISTRY METHOD 08/20/2024 11:11 AM [facility] ALT (SGPT) 30 10 - 60 unit/L LAB CHEMISTRY METHOD 08/20/2024 11:11 AM [facility] Alkaline Phosphatase 39(L) 42 - 121 unit/L LAB CHEMISTRY METHOD 08/20/2024 11:11 AM [facility] Total Protein 6.6 6.0 - 8.0 g/dL LAB CHEMISTRY METHOD 08/20/2024 11:11 AM [facility] Albumin 3.5 3.2 - 5.0 g/dL LAB CHEMISTRY METHOD 08/20/2024 11:11 AM [facility] Total Bilirubin 0.8 0.0 - 1.4 mg/dL LAB CHEMISTRY METHOD 08/20/2024 11:11 AM [facility] Blood Venous blood specimen / Unknown Venipuncture / Unknown 08/20/2024 7:39 AM EST 08/20/2024 10:36 AM EST us Prince Le MD LAB BLOOD ORDERABLES Final Resul t [facility] [address] [place] [address], * (ABNORMAL) Complete blood count (08/20/2024 7:39 AM EST) WBC 13.2(H) 4.8 - 10.8 K/mcL LAB HEMETOLOGY METHOD 08/20/2024 10:52 AM [facility] RBC 3.90(L) 4.50 - 5.50 M/mcL LAB HEMETOLOGY METHOD 08/20/2024 10:52 AM [facility] Hemoglobin 11.0(L) 13.5 - 17.5 g/dL LAB HEMETOLOGY METHOD 08/20/2024 10:52 AM [facility] Hematocrit 33.1(L) 42.0 - 54.0 % LAB HEMETOLOGY METHOD 08/20/2024 10:52 AM [facility] MCV 85.3 79.0 - 98.0 FL LAB HEMETOLOGY METHOD 08/20/2024 10:52 AM [facility] MCH 28.4 27.0 - 32.0 pcg LAB HEMETOLOGY METHOD 08/20/2024 10:52 AM [facility] MCHC 33.2 32.0 - 37.0 g/dL LAB HEMETOLOGY METHOD 08/20/2024 10:52 AM [facility] RDW 20.9(H) 11.0 - 15.0 % LAB HEMETOLOGY METHOD 08/20/2024 10:52 AM [facility] Platelets 329 130 - 400 K/mcL LAB HEMETOLOGY METHOD 08/20/2024 10:52 AM [facility] MPV 13.2(H) 7.0 - 11.0 FL LAB HEMETOLOGY METHOD 08/20/2024 10:52 AM [facility] NRBC 0.0 <1.0 % LAB HEMETOLOGY METHOD 08/20/2024 10:52 AM [facility] NRBC Absolute 0.00 <0.10 K/mcL LAB HEMETOLOGY METHOD 08/20/2024 10:52 AM [facility] Blood Venous blood specimen / Unknown Venipuncture / Unknown 08/20/2024 7:39 AM EST 08/20/2024 10:36 AM EST us Prince Le MD LAB BLOOD ORDERABLES Final Resul t [facility] [address] [place] [address], documented in this encounter Visit Diagnoses Diagnosis Type 2 diabetes mellitus without complications (CMS/HCC) documented in this encounter Care Teams Executive Director Of Nursing Relationship Specialty Start Date End Date Tram Álvarez MD [address] [facility] , [address] [facility] [place], [place] PCP - General Internal Medicine 03/30/18 documented as of this encounter
--- OUTSIDE RECORDS SUMMARY | 2024-08-24 11:03 | XMS_ITS | Clinical Summary ---
Author Organization [facility] Facility Address [address] [place] [address] Care Team Providers Care Mice Raiser Name Role Phone Tram Royal MD Primary Care Provider [phone] Allergies Active Allergy Reactions Criticality Noted Date [...] % PVNMA 04/28/2020 us [facility] [id number] LICITED RESULTS Final Result PVNMA from Last 3 Months or Most Recently Relevant to Health Maintenance Insurance [address] [place] [id number] [place] [address] [place] [phone] [place] Care Teams Mice Raiser Relationship Specialty Start Date End Date Tram Royal MD [address] [place], [place] PCP - General 07/17/20
--- OUTSIDE RECORDS SUMMARY | 2024-08-24 11:03 | XMS_ITS | Continuity of Care Document ---
Author Organization [facility], [facility] Address [address] [place] [address] Care Team Providers Care Hplc Chemist Name Role Phone LANG HERRERA Primary Care Provider [phone] [facility] - 4TH FLOOR OTHER Assessment No assessment [...] Address Organization Details Recorded Time Diabetes mellitus [id number] Active 2019 YANG SWEET [address], [address], [facility] 0 09:29:33 Depressive disorder 03384185 Active 2019 YANG SWEET [address] , [address], [place], [address], [facility] 0 09:29:39 Essential hypertensio n 21298053 Active 2019 YANG SWEET [address], [address], [place], [address], [facility] 0 09:29:47 Hypercholes terolemia 00099190 Active 2019 YANG SWEET [address], [address], [place], [address], [facility] 0 09:29:57 Vitamin D deficiency 51269799 Active 2019 YANG SWEET [address], [address], [place], [address], [facility] 0 09:30:10 Insomnia 940707033 Active 2019 YANG SWEET [address], [address], [place], [address], [place] [facility] 0 09:30:19 Spinal stenosis of lumbar region 95909051 Active 2019 YANG SWEET [address], [address], [place], [address], [place] - [facility] 0 09:30:43 Total knee replacement Active 2022 Sonja Gibbs NP [address] , [address], [place], [address], [facility] 3 09:12:50 Acute pain of joint of knee [id number] 04 Active 2022 Sonja Gibbs NP [address] [facility], [address], [place], [address], [facility] 3 09:14:53 Constipatio n 06586285 Active 2022 Sonja Gibbs NP [address] [facility], [address], [place], [address], [facility] 3 10:15:39 Osteoarthri tis of knee 810347372 Active 2022 Judie Camacho MD [address] [facility], [address], [place], [address], [facility] 3 20:37:14 Chronic kidney disease stage 1 757101444 Active 2022 Judie Camacho MD [address] [facility], [address], [place], [address], [facility] 3 20:53:16 Chronic diastolic heart failure 807800432 Active 2023 Judie Camacho MD [address] [facility], [address], [place], [address], [facility] 4 21:28:14 Chronic kidney disease stage 2 905727168 Active 2023 Judie Camacho MD [address] [facility], [address], [place], [address], [facility] 4 21:28:20 Problem Notes None recorded. Procedures Surgical History Date Name Laterality Status Provider Name and Address Organization Details Recorded Time laminotomy completed NURIA YANG BINGHAM [address] [facility], [address], [place], [address], [facility] 01/06/2020 09:27:06 Imaging Results None recorded. Procedure Notes None recorded. Medical Equipment None Reported. Allergies Allergen ID Allergen Name Allergen Category Reaction Reaction Severity Criticality Documentation Date Start Date Code Code System Note Provider Name and Address Organization Details Recorded Time 71926 Product containin g penicilli n (product) medicatio n rash Not available Not available 01/06/2020 53285 8001 SNOMED Not Available Not Available Not [...] Updated DateTime 5 198.12 cm 21.8 kg/m2 60226.9 6 g 89 /min 18 /min 98.6 [degF] 96 % 96 % 103 mm[Hg] 75 mm[Hg] Sonja Gibbs NP [address] [facility], [address], [place], [address], [facility] 5 14:59:10 Social History Question Answer Notes LastModified by Organizat ion Details LastModified Time Tobacco Smoking Status Former Smoker Sonja Gibbs, DIAMOND [address] [facility], [address], [place], [address], [facility] 02/14/2023 10:11:47 Do You Have An Advance Directive? Yes FULL CODE No Dialysis And Okay To Use Nutrition-us e Hydration Information not available 02/14/2023 What Is Your Level Of Alcohol Consumption? Occasional Information not available 02/14/2023 How Much Tobacco Do You Chew? None [id number] Information not available 05/02/2020 What Is Your Code Status? Full Code Information not available 02/14/2023 Do You Or Have You Ever Used E-cigarettes Or Vape? Never Used Electronic Cigarettes [id number] Information not available 05/02/2020 Where Do You Live? Apartment Elevator Information not available 02/19/2023 Legal Guardian? No Informati on not available 02/14/2023 Do You Have A Medical Power Of Mechanical Engineering Director? Yes [id number] Information not available 05/02/2020 What Was The [...] Used Smokeless Tobacco? Never Used Smokeless Tobacco [id number] Information not available 05/02/2020 Do You Use Any Illicit Or Recreational Drugs? No Information not available 02/14/2023 Has Tobacco Cessation Counseling Been Provided? No N/a As Pt. No Longer Smokes Information not available 02/19/2023 How Many Years Have You Smoked Tobacco? 40 [id number] Information not available 05/02/2020 Do You Have [...] quadrivalent, PF [facility] 09:57:53 Influenza, adjuvanted, quadrivalent, PF 3 [facility]23 11:45:01 pneumococcal polysaccharide PPV23 8 completed Sade Little [facility] 05/07/2024 15:50:52 influenza, unspecified formulation 4 completed Sade Little [facility] 05/07/2024 15:51:08 SARS-COV-2 (COVID-19) vaccine, UNSPECIFIED 1 completed Sade Little [facility] 05/07/2024 15:51:23 SARS-COV-2 (COVID-19) vaccine, UNSPECIFIED 1 completed Sade Little [facility] 05/07/2024 15:51:30 SARS-COV-2 (COVID-19) vaccine, UNSPECIFIED 3 completed Sade Little [facility] 05/07/2024 15:51:38 Past Encounters Encounter ID Performer Location Encounter Start Date Encounter Closed Date Diagnosis/Indication Diagnosis SNOMED-CT Code Diagnosis ICD10 Code Diagnosis Note [id number] Sonja Gibbs NP [address] [address] 07/14/2024 13:30:49 07/16/2024 10:19:43 Diabetes mellitus 62395186 E11.9 Last HgA1C was 7.9 in 11/2023.Fol lowed by endocrine at [facility].with BS of 44 on 07/15 and similar in past, remains asymptomat icContinue trulicity 1.5 weekly, metformin 500 mg BID, januvia 25 mg qd, and SSI1/8 decrease (degludec) tresiba 26 U qd to 20 unitsMonit or fingerstic ks TID and HgA1C as outpt.of note was on 35 units of insulin in recent past Asthenia 55977103 R53.1 remains with weakness to left leg and right arm12/20 right arm and left knee brace on in am and off in pm per dr anderson's ordersPT/O T eval and treat prn, off regular therapymon itor [id number] Sonja Gibbs NP [address] [address] 07/22/2024 14:17:32 07/23/2024 15:07:54 Constipation 70995593 K59.09 with regular bm per patient todayCurre ntly no abd. pain, no N/V.BS [id number] e fluids, dietary fiber.cont senna plus 2 tabs qdmiralax dailyhouse bowel protocol prn Diabetes mellitus 603689 09 E11.9 Last HgA1C was 7.9 in 11/2023.Fol lowed by endocrine at [facility] with multiple low BS in amContinue trulicity 1.5 weeklymetf ormin 500 mg BIDanuvia 25 mg qd, and SSI(deglud ec)tresiba 20 unitsMonit or fingerstic ks TID and HgA1C as outpt.(of note was on 35 units of insulin in recent past) Asthenia 30223801 R53.1 remains with weakness to left leg and right arm, and today with right leg weaknessri ght arm and left knee brace on in am and off in pm per dr anderson's ordersPT/O T eval and treat prn, off regular therapymon itor Spinal mg nosis of lumbar region 84544699 M48.062 With chronic back pain. hx of [...] in pmfu after MRI sched /29/08 5 [facility] at 1 pm sched from outside providerco ntPT/OT for strengthen ing, balance, gait training, safety and function prnremains barrington lift at this timeContin ue fall precaution s.Monitor for safety.Margareth itor pain controlCel ebrex remains on hold. Pain in right arm 500761 004 M79.601 Denies trauma or injury. feels [...] above for management Osteoarthr itis of knee 057799724 M17.12 Z96.652 LTKR originally done on 02/11remains [...] concernsmo nitor Chronic di astolic heart failure 908851927 I50.32 per hosp report of CHF.he never [...] fluid status, wts and labs. Essential hypertension 26508399 I10 stableCont inue meds as above and amlodipine 2.5 mg qd.Monitor BP and labsDaily BPs ordered. Depressive disorder 3548 9007 F32.89 In hx.On no meds.Monit or mood.Psych consult prn. Benign pro static hyperplasia without outflow obstruction 903268184 N40.0 In hx, with some issues with retention at times.Cont inuetamsul osin 0.4 mg qd. Gastroesop hageal reflux disease without esophagitis 706849764 K21.9 Using TUMS frequently for GERD/GI sx. resolvingc ontpepcid 20 mg bidMonitor sx.If remain problemati c, consider trial of PPI Nausea and vomiting 1693 2000 R11.2 resolvedse e belowzofra n 4 mg po q 6 hours prn n/v x 30 days Chronic ki dney disease stage 2 901223068 N18.2 At baseline.C ontinue to avoid nephrotoxi c meds as able.Monit or labs.Renal consult prn. Hypercholesterolemia 136 40391 E78.2 Continueat orvastatin 20 mg qdfenofibr ate 145 mg qdvascepa 2 g BID,ASA 81 mg qd.Monitor labs as outpt. [id number] Sonja Gibbs NP [address] [place] [address] 07/30/2024 08:03:45 08/03/2024 12:50:06 Spinal stenosis of lumbar region 01125062 M48.062 With chronic back pain and weakness [...] in pmfu after cervical MRI sched 07/3107/29/24 [facility] with rec:neuros urgery consult with Dr Serna 07/30 referral to [facility] ordered as recommende d, has MRI today. contPT/OT prn, currently not working with [employer] at this timeContin ue fall precaution s.Monitor for safety.Margareth mccullough pain controlCel ebrex remains on hold. Asthenia 51744564 R53.1 remains with weakness to left leg and right arm, and today with right leg weaknessri ght arm sling and left knee brace on in am and off in pm per dr anderson's ordersPT/O T eval and treat prn, off regular therapymargareth mccullough Pain in right arm 726288 004 M79.601 Denies trauma or injury. feels [...] above for management Osteoarthr itis of knee 374023189 M17.12 Z96.652 LTKR originally done on 02/11remains [...] lower ext neg for acute concernsmo nitor [id number] Sonja Gibbs NP [facility] [address] [place] [address] 08/04/2024 09:05:47 08/06/2024 09:42:06 Spinal stenosis of lumbar region 23043448 M48.062 With chronic back pain and weakness reported since september or october 2023. 05/13/24 U/S done for swelling to lower right fingers both came back without fracture, dislocatio n, or thrombus.H gabriel is followed outpt by vascular for his [...] rec for minimally invasive spine center at [facility] appt 08/0907/29/24 [facility] with rec:neuros urgery [...] of c3 to the superior endplate of c5.[facility] sent pt referral:rich rios was rec for minimally invasive spine center at [facility] appt 2/ contPT/OT prn, currently not working with himremains barrington lift at this timeContin ue fall precaution s.Monitor for safety.Mon itor pain control see belowCeleb sandip remains on hold. Asthenia 71884159 R53.1 remains with weakness to left leg and right arm, and today with right leg weaknessri ght arm sling and left knee brace on in am and off in pm per dr anderson's ordersPT/O T eval and treat prn, off regular therapymon itor Pain in right arm 081686 004 M79.601 Denies trauma or injury. feels [...] above for management Osteoarthr itis of knee 803287465 M17.12 Z96.652 LTKR originally done on 02/11remains [...] neg for acute concernsmo nitor Diabetes mellitus 469477 09 E11.9 Last HgA1C was 7.9 in 11/2023.Fol lowed by endocrine at [facility] with multiple low BS in am of 54, recheck BS came upContinue januvia 25 mg qdSSItruli city 1.5 weekly08/04 increase metformin 500 mg BID to 1000 mg po bid08/04 dc tresiba 20 units qhs for low BSMonitor fingerstic ks TID and HgA1C as outpt.(of note was on 35 units of insulin in recent past) Chronic pain 68047275 G8 9.29 followed by pain management here08/04 start gabapentin 100 mg po bidContinu eoxycodone 10 mg qid for painceleco xib 200 mg BIDAPAP 650 mg TID and q 4 hrs prn (NTE 3000 mg/d),Cont inue fall precaution s.Monitor for safety. Pain of left eye 3305414 001 00417 H57.12 reports left eye pain related to dropper touching his eye last nightno injuries or abnormalit y of eye notedwarm compress given at visit for comfort.mo nitor [id number] Sonja Gibbs NP [address] [address] 08/09/2024 14:58:20 08/10/2024 11:35:43 Diabetes mellitus 23888770 E11.9 Last HgA1C was 7.9 in 11/2023.Fol lowed by endocrine at [facility] with multiple low BS in am of 47, recheck BS came up to 111Continu ejanuvia 25 mg qdSSImetfo rmin 1000 mg po bid2/3 dc trulicity 1.5 weekly(not e tresiba recently dc'd)Monit or fingerstic ks TID and HgA1C as outpt.(of note was on 35 units of long acting insulin in recent past) Chronic pain 32051714 G8 9.29 followed by pain management herecontga bapentin 100 mg po bidoxycodo ne 10 mg qid for painceleco xib 200 mg BIDAPAP 650 mg TID and q 4 hrs prn (NTE 3000 mg/d),Cont inue fall precaution s.Monitor for safety. Spinal mg nosis of lumbar region 13581069 M48.062 With chronic back pain and weakness [...] rec for minimally invasive spine center at [facility] appt /07/29/24 [facility] with rec:neuros urgery [...] of c3 to the superior endplate of c5.[facility] sent pt referral:rich rios was rec for minimally invasive spine center at [facility] appt 08/09 08/04 referral to [facility] ordered as recommendgabriel d with MRI results back today 08/04 from 07/30 08/09 awaiting consult from spine center08/11 fu appoint at minimally invasive spine center to discuss options08/[address] Aleisha padilla (neurosurg [place]) contPT/OT prn, currently not working with himremains barrington lift at this timeContin ue fall precaution s.Monitor for safety.Mon itor pain control see belowCeleb sandip remains on hold. Asthenia 10176670 R53.1 remains with weakness to left leg and right arm, and today with right leg weaknessri ght arm sling and left knee brace on in am and off in pm per dr anderson's ordersPT/O T eval and treat prn, off regular therapymon itor Pain in right arm 202075 004 M79.601 Denies trauma or injury. feels [...] above for management Osteoarthr itis of knee 333832172 M17.12 Z96.652 LTKR originally done on 02/11remains [...] Member ID Richardson Member ID Guarantor Name 08/09/2024 1 [facility] - DOS ON OR AFTER 2022 - MEDICARE ADVANTAGE [place] (MEDICARE REPLACEMENT/ADV ANTAGE - PPO) Carlos Cabrera [id number] Carlos Cabrera Notes Date Note Type Note Provider Name and Address Organization Details Recorded Time 08/09/2024 text/html Carlos is seen fo r [...] His pcp Dr Jacinto referred him to [facility] with appt 07/29/24 at 1pm per pt. He is recommended to see Dr Serna. MRI done.He also requested second opinion and was referred to minimally invasive surgery center at [facility] with appointment on Friday08/09/24. On 06/24 he [...] but then plateaued and is now on fdc care here. He is no longer receiving therapy here. He continues to need 2 max assist for transfers and requires a barrington lift and needs are not able to be met at home. Sonja Gibbs, DIAMOND [address] [facility], [address], [place], [address], [facility] - [employer] 08/09/2024 15:24:33
--- OUTSIDE RECORDS SUMMARY | 2024-08-24 11:03 | XMS_ITS | Encounter Summary ---
Author Organization [facility] Address [address] [place] [address] Care Team Providers Care Wire Charger Name Role Phone Tram Álvarez MD Primary Care Provider [phone] Encounter Details Date Type Department Care Team (Late st Contact Info) Description 05/14/2024 Lab Requisition [facility] - Main Lab [address] [place] [address] Prince Le MD [address] [facility] [address] [place], [address] Essential (primary) hypertension Social History Tobacco [...] mmol/L LAB CHEMISTRY METHOD 05/17/2024 10:43 AM [facility] CO2 27 21 - 32 mmol/L LAB CHEMISTRY METHOD 05/17/2024 10:43 AM [facility] Anion Gap 6 3 - 11 LAB CHEMISTRY METHOD 05/17/2024 10:43 AM [facility] Glucose 99 70 - 100 mg/dL LAB CHEMISTRY METHOD 05/17/2024 10:43 AM [facility] BUN 37(H) 5 - 25 mg/dL LAB CHEMISTRY METHOD 05/17/2024 10:43 AM [facility] Creatinine 1.29 0.70 - 1.30 mg/dL LAB CHEMISTRY METHOD 05/17/2024 10:43 AM [facility] eGFR 60 >=60 mL/min/1. 73m2 LAB CHEMISTRY METHOD 05/17/2024 10:43 AM [facility] Comment:Calculation based on the??Chronic Kidney Disease Epidemiology Collaboration (CKD-EPI) equation refit??without adjustment for race. BUN/Creatinine Ratio 28.7 LAB CHEMISTRY METHOD 05/17/2024 10:43 AM [facility] Calcium 9.3 8.5 - 10.5 mg/dL LAB CHEMISTRY METHOD 05/17/2024 10:43 AM [facility] Blood Venous blood specimen / Unknown Venipuncture / Unknown 05/17/2024 6:41 AM EST 05/17/2024 9:49 AM EST us Prince Le MD LAB BLOOD ORDERABLES Final Resul t [facility] [address] [place] [address], * (ABNORMAL) Complete blood count (05/17/2024 6:41 AM EST) WBC 9.0 4.8 - 10.8 K/mcL LAB HEMETOLOGY METHOD 05/17/2024 10:23 AM [facility] RBC 5.50 4.50 - 5.50 M/mcL LAB HEMETOLOGY METHOD 05/17/2024 10:23 AM [facility] Hemoglobin 15.0 13.5 - 17.5 g/dL LAB HEMETOLOGY METHOD 05/17/2024 10:23 AM [facility] Hematocrit 48.3 42.0 - 54.0 % LAB HEMETOLOGY METHOD 05/17/2024 10:23 AM [facility] MCV 88.0 79.0 - 98.0 FL LAB HEMETOLOGY METHOD 05/17/2024 10:23 AM [facility] MCH 27.3 27.0 - 32.0 pcg LAB HEMETOLOGY METHOD 05/17/2024 10:23 AM [facility] MCHC 31.1(L) 32.0 - 37.0 g/dL LAB HEMETOLOGY METHOD 05/17/2024 10:23 AM [facility] RDW 16.6(H) 11.0 - 15.0 % LAB HEMETOLOGY METHOD 05/17/2024 10:23 AM [facility] Platelets 240 130 - 400 K/mcL LAB HEMETOLOGY METHOD 05/17/2024 10:23 AM [facility] MPV 13.4(H) 7.0 - 11.0 FL LAB HEMETOLOGY METHOD 05/17/2024 10:23 AM [facility] NRBC 0.0 <1.0 % LAB HEMETOLOGY METHOD 05/17/2024 10:23 AM [facility] NRBC Absolute 0.00 <0.10 K/mcL LAB HEMETOLOGY METHOD 05/17/2024 10:23 AM [facility] Blood Venous blood specimen / Unknown Venipuncture / Unknown 05/17/2024 6:41 AM EST 05/17/2024 9:51 AM EST us Prince Le MD LAB BLOOD ORDERABLES Final Resul t [facility] [address] [place] [address], [place] [phone] documented in this encounter Visit Diagnoses Diagnosis Essential (primary) hypertension Unspecified essential hypertension documented in this encounter Care Teams Wire Charger Relationship Specialty Start Date End Date Tram Álvarez MD [address] [facility] , [address] [facility] Physician Associ D/B/A: [facility] JAS Duque PCP - General Internal Medicine 03/30/18 documented as of this encounter
--- OUTSIDE RECORDS SUMMARY | 2024-08-24 11:03 | XMS_ITS | Encounter Summary ---
Author Organization [facility] Address [address] [place] [address] Care Team Providers Care Conservation Science Teacher Name Role Phone Tram Álvarez MD Primary Care Provider [phone] Encounter Details Date Type Department Care Team (Late st Contact Info) Description 07/29/2024 Lab Requisition [facility] - Main Lab [address] [place] [address] Prince Le MD [address] [facility] [address] [place], [address] Type 2 diabetes mellitus without complications [...] MD LAB BLOOD ORDERABLES Final Resul t [facility] [address] [place] [address], [place] [phone] * (ABNORMAL) Comprehensive metabolic panel (07/30/2024 7:30 [...] MD LAB BLOOD ORDERABLES Final Resul t [facility] [address] [place] [address], * (ABNORMAL) Complete blood count (07/30/2024 7:30 AM EST) WBC 8.9 4.8 - 10.8 K/mcL LAB HEMETOLOGY METHOD 07/30/2024 9:55 AM EST [facility] RBC 4.30(L) 4.50 - 5.50 [...] LAB BLOOD ORDERABLES Final Resul t [facility] [address] [place] [address], documented in this encounter Visit Diagnoses Diagnosis Type 2 diabetes mellitus without complications (CMS/HCC) documented in this encounter Care Teams Conservation Science Teacher Relationship Specialty Start Date End Date Tram Álvarez MD 2 [facility] , [address] [place] [address] Physician Associ D/B/A: [facility] [place], [place] PCP - General Internal Medicine 03/30/18 documented as of this encounter
--- OUTSIDE RECORDS SUMMARY | 2024-08-24 11:03 | XMS_ITS | Encounter Summary ---
Author Organization [facility] Address [address] [place] [address] Care Team Providers Care Plaster Maker Name Role Phone Tram Álvarez MD Primary Care Provider [phone] Encounter Details Date Type Department Care Team (Late st Contact Info) Description 07/16/2024 Lab Requisition [facility] - Main Lab [address] [place] [address] Prince Le MD 38 [facility] [address] [place], [address] Type 2 diabetes mellitus without complications [...] mg/dL LAB CHEMISTRY METHOD 07/16/2024 12:50 PM [facility] Blood Venous blood specimen / Unknown Venipuncture / Unknown 07/16/2024 8:00 AM EST 07/16/2024 11:21 AM EST us Prince Le MD LAB BLOOD ORDERABLES Final Resul t [facility] [address] [place] [address], [place] [phone] * (ABNORMAL) Comprehensive metabolic panel (07/16/2024 8:00 AM EST) Sodium 137 133 - 145 mmol/L LAB CHEMISTRY METHOD 07/16/2024 1:13 PM [facility] Potassium 5.1 3.5 - 5.5 mmol/L LAB CHEMISTRY METHOD 07/16/2024 1:13 PM [facility] Chloride 103 96 - 110 mmol/L LAB CHEMISTRY METHOD 07/16/2024 1:13 PM [facility] CO2 27 21 - 32 mmol/L LAB CHEMISTRY METHOD 07/16/2024 1:13 PM [facility] Anion Gap 7 3 - 11 LAB CHEMISTRY METHOD 07/16/2024 1:13 PM [facility] Glucose 40(L) 70 - 100 mg/dL LAB CHEMISTRY METHOD 07/16/2024 1:13 PM [facility] BUN 35(H) 5 - 25 mg/dL LAB CHEMISTRY METHOD 07/16/2024 1:13 PM [facility] Creatinine 1.27 0.70 - 1.30 mg/dL LAB CHEMISTRY METHOD 07/16/2024 1:13 PM [facility] eGFR 62 >=60 mL/min/1. 73m2 LAB CHEMISTRY METHOD 07/16/2024 1:13 PM [facility] Comment:Calculation based on the??Chronic Kidney Disease Epidemiology Collaboration (CKD-EPI) equation refit??without adjustment for race. BUN/Creatinine Ratio 27.6 LAB CHEMISTRY METHOD 07/16/2024 1:13 PM [facility] Calcium 9.0 8.5 - 10.5 mg/dL LAB CHEMISTRY METHOD 07/16/2024 1:13 PM [facility] AST (SGOT) 18 10 - 42 unit/L LAB CHEMISTRY METHOD 07/16/2024 1:13 PM [facility] ALT (SGPT) 19 10 - 60 unit/L LAB CHEMISTRY METHOD 07/16/2024 1:13 PM [facility] Alkaline Phosphatase 62 42 - 121 unit/L LAB CHEMISTRY METHOD 07/16/2024 1:13 PM [facility] Total Protein 6.7 6.0 - 8.0 g/dL LAB CHEMISTRY METHOD 07/16/2024 1:13 PM [facility] Albumin 3.5 3.2 - 5.0 g/dL LAB CHEMISTRY METHOD 07/16/2024 1:13 PM [facility] Total Bilirubin 0.4 0.0 - 1.4 mg/dL LAB CHEMISTRY METHOD 07/16/2024 1:13 PM [facility] Blood Venous blood specimen / Unknown Venipuncture / Unknown 07/16/2024 8:00 AM EST 07/16/2024 11:21 AM EST us Prince Le MD LAB BLOOD ORDERABLES Final Resul t [facility] [address] [place] [address], * (ABNORMAL) Complete blood count (07/16/2024 8:00 AM EST) WBC 10.9(H) 4.8 - 10.8 K/mcL LAB HEMETOLOGY METHOD 07/16/2024 11:53 AM EST [facility] RBC 4.90 4.50 - 5.50 M/mcL LAB HEMETOLOGY METHOD 07/16/2024 11:53 AM [facility] Hemoglobin 13.4(L) 13.5 - 17.5 g/dL LAB HEMETOLOGY METHOD 07/16/2024 11:53 AM [facility] Hematocrit 41.6(L) 42.0 - 54.0 % LAB HEMETOLOGY METHOD 07/16/2024 11:53 AM [facility] MCV 85.1 79.0 - 98.0 FL LAB HEMETOLOGY METHOD 07/16/2024 11:53 AM [facility] MCH 27.4 27.0 - 32.0 pcg LAB HEMETOLOGY METHOD 07/16/2024 11:53 AM [facility] MCHC 32.2 32.0 - 37.0 g/dL LAB HEMETOLOGY METHOD 07/16/2024 11:53 AM [facility] RDW 18.3(H) 11.0 - 15.0 % LAB HEMETOLOGY METHOD 07/16/2024 11:53 AM [facility] Platelets 413(H) 130 - 400 K/mcL LAB HEMETOLOGY METHOD 07/16/2024 11:53 AM [facility] MPV 12.4(H) 7.0 - 11.0 FL LAB HEMETOLOGY METHOD 07/16/2024 11:53 AM [facility] NRBC 0.0 <1.0 % LAB HEMETOLOGY METHOD 07/16/2024 11:53 AM [facility] NRBC Absolute 0.00 <0.10 K/mcL LAB HEMETOLOGY METHOD 07/16/2024 11:53 AM [facility] Blood Venous blood specimen / Unknown Venipuncture / Unknown 07/16/2024 8:00 AM EST 07/16/2024 11:21 AM EST us Prince Le MD LAB BLOOD ORDERABLES Final [facility]ul t [email or web address] [address] [place] [address], documented in this encounter Visit Diagnoses Diagnosis Type 2 diabetes mellitus without complications (CMS/HCC) documented in this encounter Care Teams Plaster Maker Relationship Specialty Start Date End Date Tram Álvarez MD 2 [facility] , [address] [facility] Physician Associ D/B/A: [facility] [place], [place] PCP - General Internal Medicine 03/30/18 documented as of this encounter
--- OUTSIDE RECORDS SUMMARY | 2024-08-24 11:03 | XMS_ITS | Encounter Summary ---
Author Organization [facility] Address [address] [place] [address] Care Team Providers Care Die Set Up Worker Name Role Phone Tram Álvarez MD Primary Care Provider [phone] Encounter Details Date Type Department Care Team (Late st Contact Info) Description 07/22/2024 Lab Requisition [facility] - Main Lab [address] [place] [address] Prince Le MD 38 [facility] [address] [place], [address] Type 2 diabetes mellitus without complications [...] mg/dL LAB CHEMISTRY METHOD 07/23/2024 10:47 AM [facility] Blood Venous blood specimen / Unknown Venipuncture / Unknown 07/23/2024 6:52 AM EST 07/23/2024 9:26 AM EST us Prince Le MD LAB BLOOD ORDERABLES Final Resul t [facility] [address] [place] [address], * (ABNORMAL) Comprehensive metabolic panel (07/23/2024 6:52 AM EST) Sodium 137 133 - 145 mmol/L LAB CHEMISTRY METHOD 07/23/2024 10:47 AM [facility] Potassium 5.3 3.5 - 5.5 mmol/L LAB CHEMISTRY METHOD 07/23/2024 10:47 AM [facility] Chloride 102 96 - 110 mmol/L LAB CHEMISTRY METHOD 07/23/2024 10:47 AM [facility] CO2 28 21 - 32 mmol/L LAB CHEMISTRY METHOD 07/23/2024 10:47 AM [facility] Anion Gap 7 3 - 11 LAB CHEMISTRY METHOD 07/23/2024 10:47 AM [facility] Glucose 78 70 - 100 mg/dL LAB CHEMISTRY METHOD 07/23/2024 10:47 AM [facility] BUN 39(H) 5 - 25 mg/dL LAB CHEMISTRY METHOD 07/23/2024 10:47 AM [facility] Creatinine 1.58(H) 0.70 - 1.30 mg/dL LAB CHEMISTRY METHOD 07/23/2024 10:47 AM [facility] eGFR 47(L) >=60 mL/min/1. 73m2 LAB CHEMISTRY METHOD 07/23/2024 10:47 AM [facility] Comment:Calculation based on the??Chronic Kidney Disease Epidemiology Collaboration (CKD-EPI) equation refit??without adjustment for race. BUN/Creatinine Ratio 24.7 LAB CHEMISTRY METHOD 07/23/2024 10:47 AM [facility] Calcium 9.5 8.5 - 10.5 mg/dL LAB CHEMISTRY METHOD 07/23/2024 10:47 AM [facility] AST (SGOT) 25 10 - 42 unit/L LAB CHEMISTRY METHOD 07/23/2024 10:47 AM [facility] ALT (SGPT) 26 10 - 60 unit/L LAB CHEMISTRY METHOD 07/23/2024 10:47 AM [facility] Alkaline Phosphatase 68 42 - 121 unit/L LAB CHEMISTRY METHOD 07/23/2024 10:47 AM [facility] Total Protein 6.9 6.0 - 8.0 g/dL LAB CHEMISTRY METHOD 07/23/2024 10:47 AM [facility] Albumin 3.5 3.2 - 5.0 g/dL LAB CHEMISTRY METHOD 07/23/2024 10:47 AM [facility] Total Bilirubin 0.4 0.0 - 1.4 mg/dL LAB CHEMISTRY METHOD 07/23/2024 10:47 AM [facility] Blood Venous blood specimen / Unknown Venipuncture / Unknown 07/23/2024 6:52 AM EST 07/23/2024 9:26 AM EST us Prince Le MD LAB BLOOD ORDERABLES Final Resul t [facility] [address] [place] [address], * (ABNORMAL) Complete blood count (07/23/2024 6:52 AM EST) WBC 9.2 4.8 - 10.8 K/mcL LAB HEMETOLOGY METHOD 07/23/2024 10:13 AM EST [facility] RBC 4.90 4.50 - 5.50 M/mcL LAB HEMETOLOGY METHOD 07/23/2024 10:13 AM [facility] Hemoglobin 13.6 13.5 - 17.5 g/dL LAB HEMETOLOGY METHOD 07/23/2024 10:13 AM [facility] Hematocrit 41.2(L) 42.0 - 54.0 % LAB HEMETOLOGY METHOD 07/23/2024 10:13 AM [facility] MCV 83.7 79.0 - 98.0 FL LAB HEMETOLOGY METHOD 07/23/2024 10:13 AM [facility] MCH 27.6 27.0 - 32.0 pcg LAB HEMETOLOGY METHOD 07/23/2024 10:13 AM [facility] MCHC 33.0 32.0 - 37.0 g/dL LAB HEMETOLOGY METHOD 07/23/2024 10:13 AM [facility] RDW 19.0(H) 11.0 - 15.0 % LAB HEMETOLOGY METHOD 07/23/2024 10:13 AM [facility] Platelets 364 130 - 400 K/mcL LAB HEMETOLOGY METHOD 07/23/2024 10:13 AM [facility] MPV 12.2(H) 7.0 - 11.0 FL LAB HEMETOLOGY METHOD 07/23/2024 10:13 AM [facility] NRBC 0.0 <1.0 % LAB HEMETOLOGY METHOD 07/23/2024 10:13 AM [facility] NRBC Absolute 0.00 <0.10 K/mcL LAB HEMETOLOGY METHOD 07/23/2024 10:13 AM [facility] Blood Venous blood specimen / Unknown Venipuncture / Unknown 07/23/2024 6:52 AM EST 07/23/2024 9:26 AM EST us Prince Le MD LAB BLOOD ORDERABLES Final Resul t [facility] [address] [place] [address], [place] [phone] documented in this encounter Visit Diagnoses Diagnosis Type 2 diabetes mellitus without complications (CMS/HCC) documented in this encounter Care Teams Die Set Up Worker Relationship Specialty Start Date End Date Tram Álvarez MD 2 [facility] , [address] [facility] Physician Associ D/B/A: [facility] [place] PCP - General Internal Medicine 03/30/18 documented as of this encounter
--- OUTSIDE RECORDS SUMMARY | 2024-08-24 11:03 | XMS_ITS | Encounter Summary ---
Author Organization [facility] Address [address] [place] [address] Care Team Providers Care Dental Surgery Doctor Name Role Phone Tram Álvarez MD Primary Care Provider [phone] Encounter Details Date Type Department Care Team (Late st Contact Info) Description 05/21/2024 Lab Requisition [facility] - Main Lab [address] [place] [address] Prince Le MD [address] [facility] [address] [place], [address] Essential (primary) hypertension Social History Tobacco [...] LAB CHEMISTRY METHOD 05/24/2024 9:02 AM EST [facility] Potassium 4.2 3.5 - 5.5 mmol/L LAB CHEMISTRY METHOD 05/24/2024 9:02 AM EST [facility] Chloride 109 96 - 110 mmol/L LAB CHEMISTRY METHOD 05/24/2024 9:02 AM [facility] CO2 28 21 - 32 mmol/L LAB CHEMISTRY METHOD 05/24/2024 9:02 AM [facility] Anion Gap 5 3 - 11 LAB CHEMISTRY METHOD 05/24/2024 9:02 AM [facility] Glucose 129(H) 70 - 100 mg/dL LAB CHEMISTRY METHOD 05/24/2024 9:02 AM [facility] BUN 38(H) 5 - 25 mg/dL LAB CHEMISTRY METHOD 05/24/2024 9:02 AM [facility] Creatinine 1.33(H) 0.70 - 1.30 mg/dL LAB CHEMISTRY METHOD 05/24/2024 9:02 AM [facility] LAB eGFR 58(L) >=60 mL/min/1. 73m2 LAB CHEMISTRY METHOD 05/24/2024 9:02 AM [facility] LAB Comment:Calculation based on the??Chronic Kidney Disease Epidemiology Collaboration (CKD-EPI) equation refit??without adjustment for race. BUN/Creatinine Ratio 28.6 LAB CHEMISTRY METHOD 05/24/2024 9:02 AM [facility] Calcium 9.2 8.5 - 10.5 mg/dL LAB CHEMISTRY METHOD 05/24/2024 9:02 AM [facility] Blood Venous blood specimen / Unknown Venipuncture / Unknown 05/24/2024 6:00 AM EST 05/24/2024 7:45 AM EST us Prince Le MD LAB BLOOD ORDERABLES Final Resul t [facility] [address] [place] [address], * (ABNORMAL) Complete blood count (05/24/2024 6:00 AM EST) WBC 9.3 4.8 - 10.8 K/mcL LAB HEMETOLOGY METHOD 05/24/2024 9:03 AM [facility] RBC 4.90 4.50 - 5.50 M/[facility] LAB HEMETOLOGY METHOD 05/24/2024 9:03 AM [facility] Hemoglobin 13.6 13.5 - 17.5 g/dL LAB HEMETOLOGY METHOD 05/24/2024 9:03 AM [facility] LAB Hematocrit 43.1 42.0 - 54.0 % LAB HEMETOLOGY METHOD 05/24/2024 9:03 AM [facility] LAB MCV 87.4 79.0 - 98.0 FL LAB HEMETOLOGY METHOD 05/24/2024 9:03 AM [facility] LAB MCH 27.6 27.0 - 32.0 pcg LAB HEMETOLOGY METHOD 05/24/2024 9:03 AM [facility] LAB MCHC 31.6(L) 32.0 - 37.0 g/dL LAB HEMETOLOGY METHOD 05/24/2024 9:03 AM [facility] LAB RDW 16.4(H) 11.0 - 15.0 % LAB HEMETOLOGY METHOD 05/24/2024 9:03 AM [facility] Platelets 249 130 - 400 K/[facility] LAB HEMETOLOGY METHOD 05/24/2024 9:03 AM [facility] LAB MPV 13.1(H) 7.0 - 11.0 FL LAB HEMETOLOGY METHOD 05/24/2024 9:03 AM [facility] LAB NRBC 0.0 <1.0 % LAB HEMETOLOGY METHOD 05/24/2024 9:03 AM [facility] LAB NRBC Absolute 0.00 <0.10 K/[facility] LAB HEMETOLOGY METHOD 05/24/2024 9:03 AM [facility] LAB Blood Venous blood specimen / Unknown Venipuncture / Unknown 05/24/2024 6:00 AM EST 05/24/2024 7:45 AM EST us Prince Le MD LAB BLOOD ORDERABLES Final [facility]ul t [facility] [address] [place] [address], documented in this encounter Visit Diagnoses Diagnosis Essential (primary) hypertension Unspecified essential hypertension documented in this encounter Care Teams Dental Surgery Doctor Relationship Specialty Start Date End Date Tram Álvarez MD 2 [facility] , [address] [place] [address] Physician Associ D/B/A: [facility] JAS Duque PCP - General Internal Medicine 03/30/18 documented as of this encounter
--- OUTSIDE RECORDS SUMMARY | 2024-08-24 11:03 | XMS_ITS | Encounter Summary ---
Author Organization [facility] Address [address] [place] [address] Care Team Providers Care Microscopist Name Role Phone Tram Álvarez MD Primary Care Provider [phone] Encounter Details Date Type Department Care Team (Late st Contact Info) Description 06/18/2024 Lab Requisition [facility] - Main Lab [address] [place] [address] Prince Le MD 38 [facility] [address] [place], [address] Nausea with vomiting, unspecified; Chronic kidney [...] LAB CHEMISTRY METHOD 06/18/2024 11:17 AM EST [facility] ([facility] LAB Potassium 4.6 3.5 - 5.5 [...] 06/18/2024 11:17 AM [facility] LAB eGFR 53(L) >=60 mL/min/1. 73m2 LAB CHEMISTRY METHOD 06/18/2024 11:17 AM [facility] LAB Comment:Calculation based on the??Chronic Kidney Disease Epidemiology Collaboration (CKD-EPI) equation refit??without adjustment for race. BUN/Creatinine Ratio 24.3 LAB CHEMISTRY METHOD 06/18/2024 11:17 AM [facility] Calcium 9.3 8.5 - 10.5 mg/dL LAB CHEMISTRY METHOD 06/18/2024 11:17 AM [facility] LAB Blood Venous blood specimen / Unknown Venipuncture / Unknown 06/18/2024 6:44 AM EST 06/18/2024 9:17 AM EST us Prince Le MD LAB BLOOD ORDERABLES Final Resul t [facility] [address] [place] [address], * (ABNORMAL) Complete blood count (06/18/2024 6:44 AM EST) WBC 8.4 4.8 - 10.8 K/[facility] LAB HEMETOLOGY METHOD 06/18/2024 10:46 AM [facility] LAB RBC 5.10 4.50 - 5.50 M/[facility] LAB HEMETOLOGY METHOD 06/18/2024 10:46 AM [facility] LAB Hemoglobin 14.2 13.5 - 17.5 g/dL LAB HEMETOLOGY METHOD 06/18/2024 10:46 AM [facility] LAB Hematocrit 43.5 42.0 - 54.0 % LAB HEMETOLOGY METHOD 06/18/2024 10:46 AM [facility] LAB MCV 86.1 79.0 - 98.0 FL LAB HEMETOLOGY METHOD 06/18/2024 10:46 AM [facility] LAB MCH 28.1 27.0 - 32.0 pcg LAB HEMETOLOGY METHOD 06/18/2024 10:46 AM [facility] LAB MCHC 32.6 32.0 - 37.0 g/dL LAB HEMETOLOGY METHOD 06/18/2024 10:46 AM [facility] LAB RDW 17.2(H) 11.0 - 15.0 % LAB HEMETOLOGY METHOD 06/18/2024 10:46 AM [facility] LAB Platelets 248 130 - 400 K/[facility] LAB HEMETOLOGY METHOD 06/18/2024 10:46 AM [facility] LAB MPV 12.7(H) 7.0 - 11.0 FL LAB HEMETOLOGY METHOD 06/18/2024 10:46 AM [facility] LAB NRBC 0.0 <1.0 % LAB HEMETOLOGY METHOD 06/18/2024 10:46 AM [facility] LAB NRBC Absolute 0.00 <0.10 K/[facility] LAB HEMETOLOGY METHOD 06/18/2024 10:46 AM [facility] LAB Blood Venous blood specimen / Unknown Venipuncture / Unknown 06/18/2024 6:44 AM EST 06/18/2024 9:17 AM EST us Prince Le MD LAB BLOOD ORDERABLES Final Resul t [facility] ([facility]) [facility] [address] [place] [address], documented in this encounter Visit Diagnoses Diagnosis Nausea with vomiting, unspecified Chronic kidney disease, unspecified documented in this encounter Care Teams Microscopist Relationship Specialty Start Date End Date Tram Álvarez MD 2 [facility] , [address] Physician Associ D/B/A: [facility] JAS Duque PCP - General Internal Medicine 03/30/18 documented as of this encounter
--- OUTSIDE RECORDS SUMMARY | 2024-08-24 11:03 | XMS_ITS | Data Portability ---
Author Organization [employer] [facility] [place] [facility] Address [address] [place] [phone] Care Team Providers Care Broaching Machine Repairer Name Role Phone HIM CCA OTHER LANG [...] Available N ot Available [employer] 2 [place] active Not Available Not Available Not Available [...] SNOMED-CT Code Diagnosis ICD10 Code Diagnosis Note [id number] Alicia Perez MD Main - instED [address] [place] [phone] 04/05/2024 17:15:55 04/05/2024 20:37:12 Accidental fall [id number].XXXA I provided real -time medical direction via phone for this encounter, and was available for additional phone based assistance as needed. I have reviewed and agree with the Assessment and Plan as documented by the Sales Advisory Manager. Patient given the opportunit y to ask [...] Richardson Member ID Guarantor Name 04/05/2024 1 [facility] - DOS ON OR AFTER 2022 - DUAL ELIGIBLE - LONGTERM OPTIONS AND ONE CARE (MEDICARE REPLACEMENT/ADV ANTAGE - HMO) Carlos Cabrera [id number] Carlos Cabrera Notes Date Note Type Note Provider Name and Address Organization Details Recorded Time 04/05/2024 text/html [facility] Nurse Triage Notes (Inder Sweeney): Chief Complaints: Falls Allergies: Unknown Comments: Member Of Parliament verified the Pt.'s name//address and phone number. [...] .................. .................. .................. .................. .................. .................. ............... Sales Advisory Manager Note From Dangelo Willis: Dispatched to the [...] he is working on with his PCP. [facility] was consulted. Red flags discussed. .................. .................. .................. .................. .................. .................. .................. ............... Disposition: Fulfilled Alicia Perez MD [address] [facility],[address], [place], [address], MOHINI PAGE 04/05/2024 20:37:09
--- OUTSIDE RECORDS SUMMARY | 2024-08-24 11:03 | XMS_ITS | Encounter Summary ---
Author Organization [facility] Address [address] [place] [address] Care Team Providers Care Clinical Dietetic Technician Name Role Phone Tram Álvarez MD Primary Care Provider [phone] Encounter Details Date Type Department Care Team (Late st Contact Info) Description 08/12/2024 Lab Requisition [facility] Lab [address] [place] [address] Prince Le MD [address] [facility] [address] [place], [address] Type 2 diabetes mellitus without [...] mg/dL LAB CHEMISTRY METHOD 08/13/2024 11:42 AM [facility] Blood Venous blood specimen / Unknown Venipuncture / Unknown 08/13/2024 7:38 AM EST 08/13/2024 11:02 AM EST us Prince Le MD LAB BLOOD ORDERABLES Final Resul t [facility] [address] [place] [address], * (ABNORMAL) Comprehensive metabolic panel (08/13/2024 7:38 AM EST) Sodium 137 133 - 145 mmol/L LAB CHEMISTRY METHOD 08/13/2024 11:42 AM [facility] Potassium 5.1 3.5 - 5.5 mmol/L LAB CHEMISTRY METHOD 08/13/2024 11:42 AM [facility] Chloride 103 96 - 110 mmol/L LAB CHEMISTRY METHOD 08/13/2024 11:42 AM [facility] CO2 29 21 - 32 mmol/L LAB CHEMISTRY METHOD 08/13/2024 11:42 AM [facility] Anion Gap 5 3 - 11 LAB CHEMISTRY METHOD 08/13/2024 11:42 AM [facility] Glucose 90 70 - 100 mg/dL LAB CHEMISTRY METHOD 08/13/2024 11:42 AM [facility] BUN 31(H) 5 - 25 mg/dL LAB CHEMISTRY METHOD 08/13/2024 11:42 AM [facility] Creatinine 0.98 0.70 - 1.30 mg/dL LAB CHEMISTRY METHOD 08/13/2024 11:42 AM [facility] LAB eGFR 84 >=60 mL/min/1. 73m2 LAB CHEMISTRY METHOD 08/13/2024 11:42 AM [facility] LAB Comment:Calculation based on the??Chronic Kidney Disease Epidemiology Collaboration (CKD-EPI) equation refit??without adjustment for race. BUN/Creatinine Ratio 31.6 LAB CHEMISTRY METHOD 08/13/2024 11:42 AM [facility] Calcium 9.2 8.5 - 10.5 mg/dL LAB CHEMISTRY METHOD 08/13/2024 11:42 AM [facility] AST (SGOT) 36 10 - 42 unit/L LAB CHEMISTRY METHOD 08/13/2024 11:42 AM [facility] ALT (SGPT) 32 10 - 60 unit/L LAB CHEMISTRY METHOD 08/13/2024 11:42 AM [facility] Alkaline Phosphatase 47 42 - 121 unit/L LAB CHEMISTRY METHOD 08/13/2024 11:42 AM [facility] Total Protein 6.4 6.0 - 8.0 g/dL LAB CHEMISTRY METHOD 08/13/2024 11:42 AM [facility] Albumin 3.4 3.2 - 5.0 g/dL LAB CHEMISTRY METHOD 08/13/2024 11:42 AM [facility] Total Bilirubin 0.6 0.0 - 1.4 mg/dL LAB CHEMISTRY METHOD 08/13/2024 11:42 AM [facility] Blood Venous blood specimen / Unknown Venipuncture / Unknown 08/13/2024 7:38 AM EST 08/13/2024 11:02 AM EST us Prince Le MD LAB BLOOD ORDERABLES Final Resul t [facility] [address] [place] [address], * (ABNORMAL) Complete blood count (08/13/2024 7:30 AM EST) WBC 8.4 4.8 - 10.8 K/mcL LAB HEMETOLOGY METHOD 08/13/2024 11:11 AM [facility] RBC 4.20(L) 4.50 - 5.50 M/mcL LAB HEMETOLOGY METHOD 08/13/2024 11:11 AM [facility] Hemoglobin 11.6(L) 13.5 - 17.5 g/dL LAB HEMETOLOGY METHOD 08/13/2024 11:11 AM [facility] Hematocrit 36.1(L) 42.0 - 54.0 % LAB HEMETOLOGY METHOD 08/13/2024 11:11 AM [facility] MCV 86.2 79.0 - 98.0 FL LAB HEMETOLOGY METHOD 08/13/2024 11:11 AM [facility] MCH 27.7 27.0 - 32.0 pcg LAB HEMETOLOGY METHOD 08/13/2024 11:11 AM [facility] MCHC 32.1 32.0 - 37.0 g/dL LAB HEMETOLOGY METHOD 08/13/2024 11:11 AM [facility] RDW 21.2(H) 11.0 - 15.0 % LAB HEMETOLOGY METHOD 08/13/2024 11:11 AM [facility] Platelets 338 130 - 400 K/mcL LAB HEMETOLOGY METHOD 08/13/2024 11:11 AM [facility] MPV 12.8(H) 7.0 - 11.0 FL LAB HEMETOLOGY METHOD 08/13/2024 11:11 AM [facility] NRBC 0.0 <1.0 % LAB HEMETOLOGY METHOD 08/13/2024 11:11 AM [facility] LAB NRBC Absolute 0.00 <0.10 K/mcL LAB HEMETOLOGY METHOD 08/13/2024 11:11 AM [facility] Blood Venous blood specimen / Unknown Venipuncture / Unknown 08/13/2024 7:30 AM EST 08/13/2024 10:59 AM EST us Prince Le MD LAB BLOOD ORDERABLES Final Resul t [facility] [address] [place] [address], [place] [phone] documented in this encounter Visit Diagnoses Diagnosis Type 2 diabetes mellitus without complications (CMS/HCC) documented in this encounter Care Teams Clinical Dietetic Technician Relationship Specialty Start Date End Date Tram Álvarez MD [address] [facility] , [address] [facility] Physician Associ D/B/A: [facility] [place] PCP - General Internal Medicine 03/30/18 documented as of this encounter
--- OUTSIDE RECORDS SUMMARY | 2024-08-24 11:03 | XMS_ITS | Clinical Summary ---
Author Organization [address] [facility] Address [address] [place] [address] Phone Care Team Providers Care Adolescent Coordinator Name Role Phone Tram Álvarez MD Primary Care Provider [phone] Encounters Date Type Department Care Team Description 08/19/2024 Lab Requisition [facility] [address] [place] [id number] Prince Le MD Type 2 diabetes mellitus without complications ([facility]/HCC) 08/12/2024 Lab Requisition [facility] [address] [place] [phone] Prince Le MD Type 2 diabetes mellitus without complications (CMS/HCC) 08/05/2024 Lab Requisition [facility] [address] [place] [address] Prince Le MD Type 2 diabetes mellitus without complications (CMS/HCC) 07/29/2024 Lab Requisition [facility] [address] [place] [address] Prince Le MD Type 2 diabetes mellitus without complications (CMS/HCC) 07/22/2024 Lab Requisition [facility] [address] [place] [address] Prince Le MD Type 2 diabetes mellitus without complications (CMS/HCC) 07/16/2024 Lab Requisition [facility] [address] [place] [address] Prince Le MD Type 2 diabetes mellitus without complications (CMS/HCC) 06/18/2024 Lab Requisition [facility] Lab [address] [place] [address] Prince Le MD Nausea with vomiting, unspecified; Chronic kidney disease, unspecified 05/28/2024 Lab Requisition [facility] Lab [address] [place] [address] Prince Le MD Essential (primary) hypertension 05/21/2024 Lab Requisition [facility] Lab [address] [place] [address] Prince Le MD Essential (primary) [...] 05/08/2024 Diabetes: Annual GFR (Glomerular Filtration Rate) 08/20/2025 08/20/2024, 08/13/2024, 08/06/2024, Additional history exists Hypertension/CHF/CAD Annual BMP Blood Test 08/20/2025 08/20/2024, 08/13/2024, 08/06/2024, Additional history exists Influenza Vaccine Completed 04/15/2024, [...] Date/Time Associated Diagnosis Comments C-REACTIVE PROTEIN Routine 08/20/2024 7: 39 AM EST Type 2 diabetes mellitus without complications (CMS/HCC) COMPREHENSIVE METABOLIC PANEL Routine 08/20/2024 7:39 AM EST Type 2 diabetes mellitus without complications (CMS/HCC) COMPLETE BLOOD COUNT Routine 08/20/2024 7:39 AM EST Type 2 diabetes mellitus without complications (CMS/HCC) C-REACTIVE PROTEIN Routine 08/13/2024 7: 38 AM [...] Months Results * (ABNORMAL) Complete blood count (08/20/2024 7:39 AM EST) Only the most recent of9 resultswithin the time period is included. WBC 13.2(H) 4.8 - 10.8 K/mcL LAB HEMETOLOGY METHOD 08/20/2024 10:52 AM [facility] RBC 3.90(L) 4.50 - 5.50 M/mcL LAB HEMETOLOGY METHOD 08/20/2024 10:52 AM [facility] Hemoglobin 11.0(L) 13.5 - 17.5 g/dL LAB HEMETOLOGY METHOD 08/20/2024 10:52 AM [facility] Hematocrit 33.1(L) 42.0 - 54.0 % LAB HEMETOLOGY METHOD 08/20/2024 10:52 AM [facility] MCV 85.3 79.0 - 98.0 FL LAB HEMETOLOGY METHOD 08/20/2024 10:52 AM [facility] MCH 28.4 27.0 - 32.0 pcg LAB HEMETOLOGY METHOD 08/20/2024 10:52 AM EST [facility] MCHC 33.2 32.0 - 37.0 g/dL LAB HEMETOLOGY METHOD 08/20/2024 10:52 AM EST [facility] RDW 20.9(H) 11.0 - 15.0 % LAB HEMETOLOGY METHOD 08/20/2024 10:52 AM EST [facility] Platelets 329 130 - 400 K/mcL LAB HEMETOLOGY METHOD 08/20/2024 10:52 AM EST [facility] MPV 13.2(H) 7.0 - 11.0 FL LAB HEMETOLOGY METHOD 08/20/2024 10:52 AM EST [facility] NRBC 0.0 <1.0 % LAB HEMETOLOGY METHOD 08/20/2024 10:52 AM EST [facility] NRBC Absolute 0.00 <0.10 K/mcL LAB HEMETOLOGY METHOD 08/20/2024 10:52 AM EST [facility] Blood Venous blood specimen / Unknown Venipuncture / Unknown 08/20/2024 7:39 AM EST 08/20/2024 10:36 AM EST us Prince Le MD LAB BLOOD ORDERABLES Final Resul t [facility] [address] [place] [address], * (ABNORMAL) C-reactive protein (08/20/2024 7:39 AM EST) Only the most recent of6 resultswithin the time period is included. C-Reactive Protein 1.16(H) <=0.50 mg/dL LAB CHEMISTRY METHOD 08/20/2024 11:12 AM EST [facility] Blood Venous blood specimen / Unknown Venipuncture / Unknown 08/20/2024 7:39 AM EST 08/20/2024 10:36 AM EST us Prince Le MD LAB BLOOD ORDERABLES Final Resul t [facility] [address] [place] [address], [place] [phone] * (ABNORMAL) Comprehensive metabolic panel (08/20/2024 7:39 AM EST) Only the most recent of6 resultswithin the time period is included. Sodium 139 133 - 145 mmol/L LAB CHEMISTRY METHOD 08/20/2024 11:11 AM [facility] Potassium 4.5 3.5 - 5.5 mmol/L LAB CHEMISTRY METHOD 08/20/2024 11:11 AM [facility] Chloride 109 96 - 110 mmol/L LAB CHEMISTRY METHOD 08/20/2024 11:11 AM [facility] CO2 26 21 - 32 mmol/L LAB CHEMISTRY METHOD 08/20/2024 11:11 AM [facility] Anion Gap 4 3 - 11 LAB CHEMISTRY METHOD 08/20/2024 11:11 AM [facility] Glucose 120(H) 70 - 100 mg/dL LAB CHEMISTRY METHOD 08/20/2024 11:11 AM [facility] BUN 22 5 - 25 mg/dL LAB CHEMISTRY METHOD 08/20/2024 11:11 AM [facility] Creatinine 0.78 0.70 - 1.30 mg/dL LAB CHEMISTRY METHOD 08/20/2024 11:11 AM [facility] eGFR 97 >=60 mL/min/1. 73m2 LAB CHEMISTRY METHOD 08/20/2024 11:11 AM [facility] Comment:Calculation based on the??Chronic Kidney Disease Epidemiology Collaboration (CKD-EPI) equation refit??without adjustment for race. BUN/Creatinine Ratio 28.2 LAB CHEMISTRY METHOD 08/20/2024 11:11 AM [facility] Calcium 9.3 8.5 - 10.5 mg/dL LAB CHEMISTRY METHOD 08/20/2024 11:11 AM [facility] AST (SGOT) 35 10 - 42 unit/L LAB CHEMISTRY METHOD 08/20/2024 11:11 AM [facility] ALT (SGPT) 30 10 - 60 unit/L LAB CHEMISTRY METHOD 08/20/2024 11:11 AM [facility] Alkaline Phosphatase 39(L) 42 - 121 unit/L LAB CHEMISTRY METHOD 08/20/2024 11:11 AM [facility] Total Protein 6.6 6.0 - 8.0 g/dL LAB CHEMISTRY METHOD 08/20/2024 11:11 AM [facility] Albumin 3.5 3.2 - 5.0 g/dL LAB CHEMISTRY METHOD 08/20/2024 11:11 AM [facility] Total Bilirubin 0.8 0.0 - 1.4 mg/dL LAB CHEMISTRY METHOD 08/20/2024 11:11 AM [facility] Blood Venous blood specimen / Unknown Venipuncture / Unknown 08/20/2024 7:39 AM EST 08/20/2024 10:36 AM EST us Prince Le MD LAB BLOOD ORDERABLES Final Resul t [facility] [address] [place] [address], * (ABNORMAL) Basic metabolic panel (06/18/2024 6:44 AM EST) Only the most recent of3 resultswithin the time period is included. Sodium 142 133 - 145 mmol/L LAB CHEMISTRY METHOD 06/18/2024 11:17 AM [facility] Potassium 4.6 3.5 - 5.5 mmol/L LAB CHEMISTRY METHOD 06/18/2024 11:17 AM [facility] Chloride 102 96 - 110 mmol/L LAB CHEMISTRY METHOD 06/18/2024 11:17 AM [facility] CO2 32 21 - 32 mmol/L LAB CHEMISTRY METHOD 06/18/2024 11:17 AM [facility] Anion Gap 8 3 - 11 LAB CHEMISTRY METHOD 06/18/2024 11:17 AM [facility] Glucose 72 70 - 100 mg/dL LAB CHEMISTRY METHOD 06/18/2024 11:17 AM [facility] BUN 35(H) 5 - 25 mg/dL LAB CHEMISTRY METHOD 06/18/2024 11:17 AM [facility] Creatinine 1.44(H) 0.70 - 1.30 mg/dL LAB CHEMISTRY METHOD 06/18/2024 11:17 AM [facility] eGFR 53(L) >=60 mL/min/1. 73m2 LAB CHEMISTRY METHOD 06/18/2024 11:17 AM [facility] Comment:Calculation based on the??Chronic Kidney Disease Epidemiology Collaboration (CKD-EPI) equation refit??without adjustment for race. BUN/Creatinine Ratio 24.3 LAB CHEMISTRY METHOD 06/18/2024 11:17 AM [facility] Calcium 9.3 8.5 - 10.5 mg/dL LAB CHEMISTRY METHOD 06/18/2024 11:17 AM [facility] Blood Venous blood specimen / Unknown Venipuncture / Unknown 06/18/2024 6:44 AM EST 06/18/2024 9:17 AM EST us Prince eL MD LAB BLOOD ORDERABLES Final Resul t [facility] [address] [place] [address], [place] [phone] from Last 3 Months Insurance [facility] MEDIC[facility] Member Subscriber Plan / Payer (Ef fective 2023-Present) Name:Carlos Cabrera Relation to Subscriber:Self Name:Carlos Cabrera Payer ID:[id number] Group ID:[id number] Type:Not on file Address: [place] [address] [address] [id number] Care Teams Adolescent Coordinator Relationship Specialty Start Date End Date Tram Álvarez MD 2 [facility] , [address] Physician Associ D/B/A: [facility] JAS Duque PCP - General Internal Medicine 03/30/18
--- OUTSIDE RECORDS SUMMARY | 2024-08-24 11:04 | XMS_ITS | Continuity of Care Document ---
Author Organization [facility], [facility] Address [address] [place] [address] Care Team Providers Care Networks Computer Consultant Name Role Phone LANG HERRERA Primary Care Provider [phone] [facility] - 4TH FLOOR OTHER Assessment [...] Address Organization Details Recorded Time Diabetes mellitus [id number] Active 2019 YANG SWEET [address], [place], [address], [facility] 0 09:29:33 Depressive disorder 73114972 Active 2019 YANG SWEET [address] , [address], [place], [address], [facility] 0 09:29:39 Essential hypertensio n 08870388 Active 2019 YANG SWEET [address], [address], [place], [address], [facility] 0 09:29:47 Hypercholes terolemia 63624314 Active 2019 YANG SWEET [address], [address], [place], [address], [facility] 0 09:29:57 Vitamin D deficiency 54817712 Active 2019 YANG SWEET [address], [address], [place], [address], [facility] 0 09:30:10 Insomnia 259235503 Active 2019 YANG SWEET [address], [address], [place], [address], [place] [facility] 0 09:30:19 Spinal stenosis of lumbar region 14898643 Active 2019 YANG SWEET [address], [address], [place], [address], [place] - [facility] 0 09:30:43 Total knee replacement Active 2022 Sonja Gibbs NP [address] , [address], [place], [address], [facility] 3 09:12:50 Acute pain of joint of knee 8466732938712 04 Active 2022 Sonja Gibbs NP [address] [facility], [place], [address], [facility] 3 09:14:53 Constipatio n 67059397 Active 2022 Sonja Gibbs NP [address] [facility], [address], [place], [address], [facility] 3 10:15:39 Osteoarthri tis of knee 926751860 Active 2022 Judie Camacho MD [address] [facility], [place], [address], [facility] 3 20:37:14 Chronic kidney disease stage 1 077014268 Active 2022 Judie Camacho MD [address] [facility], [address], [place], [address], [facility] 3 20:53:16 Chronic diastolic heart failure 883057630 Active 2023 Judie Camacho MD [address] [facility], [address], [place], [address], [facility] 4 21:28:14 Chronic kidney disease stage 2 056033541 Active 2023 Judie Camacho MD [address] [facility], [address], [place], [address], [facility] 4 21:28:20 Problem Notes None recorded. Procedures Surgical History Date Name Laterality Status Provider Name and Address Organization Details Recorded Time laminotomy completed NURIA YANG BINGHAM [address] [facility], [address], [place], [address], [facility] 01/06/2020 09:27:06 Imaging Results None recorded. Procedure Notes None recorded. Medical Equipment None Reported. Allergies Allergen ID Allergen Name Allergen Category Reaction Reaction Severity Criticality Documentation Date Start Date Code Code System Note Provider Name and Address Organization Details Recorded Time 62190 Product containin g penicilli n (product) medicatio n rash Not available Not available 01/06/2020 21542 8001 SNOMED Not Available Not Available Not [...] Updated DateTime 5 198.12 cm 21.7 kg/m2 03187.3 7 g 76 /min 18 /min 97.4 [degF] 96 % 96 % 111 mm[Hg] 77 mm[Hg] Sonja Gibbs NP [address] [facility], [address], [place], [address], [facility] 5 10:30:35 Social History Question Answer Notes LastModified by Organizat ion Details LastModified Time Tobacco Smoking Status Former Smoker Sonja Gibbs, DIAMOND [address] [facility], [address], [place], [address], [facility] 02/14/2023 10:11:47 Do You Have An Advance Directive? Yes FULL CODE No Dialysis And Okay To Use Nutrition-us e Hydration Information not available 02/14/2023 What Is Your Level Of Alcohol Consumption? Occasional Information not available 02/14/2023 How Much Tobacco Do You Chew? None [id number] Information not available 05/02/2020 What Is Your Code Status? Full Code Information not available 02/14/2023 Do You Or Have You Ever Used E-cigarettes Or Vape? Never Used Electronic Cigarettes [id number] Information not available 05/02/2020 Where Do You Live? Apartment Elevator Information not available 02/19/2023 Legal Guardian? No Informati on not available 02/14/2023 Do You Have A Medical Power Of Php Developer? Yes [id number] Information not available 05/02/2020 What Was The [...] Used Smokeless Tobacco? Never Used Smokeless Tobacco [id number] Information not available 05/02/2020 Do You Use Any Illicit Or Recreational Drugs? No Information not available 02/14/2023 Has Tobacco Cessation Counseling Been Provided? No N/a As Pt. No Longer Smokes Information not available 02/19/2023 How Many Years Have You Smoked Tobacco? 40 [id number] Information not available 05/02/2020 Do You Have [...] Influenza, adjuvanted, quadrivalent, PF 2 [facility] 09:57:53 Influenza, adjuvanted, quadrivalent, PF 3 [facility]23 11:45:01 pneumococcal polysaccharide PPV23 8 completed Sade [facility] 05/07/2024 15:50:52 influenza, unspecified formulation 4 completed Sade [facility] 05/07/2024 15:51:08 SARS-COV-2 (COVID-19) vaccine, UNSPECIFIED 1 completed Sade [facility] 05/07/2024 15:51:23 SARS-COV-2 (COVID-19) vaccine, UNSPECIFIED 1 completed Sade [facility] 05/07/2024 15:51:30 SARS-COV-2 (COVID-19) vaccine, UNSPECIFIED 3 completed Sade [facility] 05/07/2024 15:51:38 Past Encounters Encounter ID Performer Location Encounter Start Date Encounter Closed Date Diagnosis/Indication Diagnosis SNOMED-CT Code Diagnosis ICD10 Code Diagnosis Note [id number] Sonja Gibbs NP [address] [address] 07/22/2024 14:17:32 07/23/2024 15:07:54 Constipation 04504734 K59.09 with regular bm per patient todayCurre ntly no abd. pain, no N/V.BS z9Axadlgto e fluids, dietary fiber.cont senna plus 2 tabs qdmiralax dailyhouse bowel protocol prn Diabetes mellitus 775597 09 E11.9 Last HgA1C was 7.9 in 11/2023.Fol lowed by endocrine [place] [facility] with multiple low BS in amContinue trulicity 1.5 weeklymetf ormin 500 mg BIDanuvia 25 mg qd, and SSI(deglud ec)tresiba 20 unitsMonit or fingerstic ks TID and HgA1C as outpt.(of note was on 35 units of insulin in recent past) Asthenia 59837824 R53.1 remains with weakness to left leg and right arm, and today with right leg weaknessri ght arm and left knee brace on in am and off in pm per dr anderson's ordersPT/O T eval and treat prn, off regular therapymon itor Spinal mg nosis of lumbar region 40327505 M48.062 With chronic back pain. hx of [...] in pmfu after MRI sched /29/08 5 [facility] at 1 pm sched from outside providerco ntPT/OT for strengthen ing, balance, gait training, safety and function prnremains barrington lift at this timeContin ue fall precaution s.Monitor for safety.Mon itor pain controlCel ebrex remains on hold. Pain in right arm 117457 004 M79.601 Denies trauma or injury. feels it is improving. has decreased rom and lymphedema for some time now prior to hospitaliz ationcontp hysiatry prn consultedt yl 1000 mg po tid and lidocaine patch which is helpingsch eduled Oxycodone 10 mg po q 6 hourscyclo benzaprine bid12/20 right arm on in am and off in pm per dr anderson's orders and MRI cervical spine as ordered by Elizabeth mccullough closely.se e above for management Osteoarthr itis of knee 973081715 M17.12 Z96.652 LTKR originally done on 02/11remains [...] concernsmo nitor Chronic di astolic heart failure 758974161 I50.32 per hosp report of CHF.he never [...] fluid status, wts and labs. Essential hypertension 64489155 I10 stableCont inue meds as above and amlodipine 2.5 mg qd.Monitor BP and labsDaily BPs ordered. Depressive disorder 3548 9007 F32.89 In hx.On no meds.Monit or mood.Psych consult prn. Benign pro static hyperplasia without outflow obstruction 219716383 N40.0 In hx, with some issues with retention at times.Cont inuetamsul osin 0.4 mg qd. Gastroesop hageal reflux disease without esophagitis 231473609 K21.9 Using TUMS frequently for GERD/GI sx. resolvingc ontpepcid 20 mg bidMonitor sx.If remain problemati c, consider trial of PPI Nausea and vomiting 1692 1999 R11.2 resolvedse e belowzofra n 4 mg po q 6 hours prn n/v x 30 days Chronic ki dney disease stage 2 659351129 N18.2 At baseline.C ontinue to avoid nephrotoxi c meds as able.Monit or labs.Renal consult prn. Hypercholesterolemia 136 06040 E78.2 Continueat orvastatin 20 mg qdfenofibr ate 145 mg qdvascepa 2 g BID,ASA 81 mg qd.Monitor labs as outpt. [id number] Sonja Gibbs NP [address] [address] 07/30/2024 08:03:45 08/03/2024 12:50:06 Spinal stenosis of lumbar region 91537369 M48.062 With chronic back pain and weakness [...] in pmfu after cervical MRI sched 07/3107/29/24 [facility] with rec:neuros urgery consult with Dr Serna 07/30 referral to [facility] ordered as recommende d, has MRI today. contPT/OT prn, currently not working with himremains barrington lift at this timeContin ue fall precaution s.Monitor for safety.Margareth mccullough pain controlCel ebrex remains on hold. Asthenia 22574449 R53.1 remains with weakness to left leg and right arm, and today with right leg weaknessri ght arm sling and left knee brace on in am and off in pm per dr anderson's ordersPT/O T eval and treat prn, off regular therapymargareth mccullough Pain in right arm 690166 004 M79.601 Denies trauma or injury. feels [...] above for management Osteoarthr itis of knee 826782897 M17.12 Z96.652 LTKR originally done on 02/11remains [...] lower ext neg for acute concernsmo nitor [id number] Sonja Gibbs NP [address] [address] 08/04/2024 09:05:47 08/06/2024 09:42:06 Spinal stenosis of lumbar region 37448391 M48.062 With chronic back pain and weakness [...] rec for minimally invasive spine center at [facility] appt 2/3 07/29/24 [facility] with rec:neuros urgery [...] of c3 to the superior endplate of c5.[facility] sent pt referral:rich rios was rec for minimally invasive spine center at [facility] appt 2/ contPT/OT prn, currently not working with himremains barrington lift at this timeContin ue fall precaution s.Monitor for safety.Mon itor pain control see belowCeleb sandip remains on hold. Asthenia 29214055 R53.1 remains with weakness to left leg and right arm, and today with right leg weaknessri ght arm sling and left knee brace on in am and off in pm per dr anderson's ordersPT/O T eval and treat prn, off regular therapymon itor Pain in right arm 361965 004 M79.601 Denies trauma or injury. feels [...] above for management Osteoarthr itis of knee 162895597 M17.12 Z96.652 LTKR originally done on 02/11remains [...] neg for acute concernsmo nitor Diabetes mellitus 285881 09 E11.9 Last HgA1C was 7.9 in 11/2023.Fol lowed by endocrine at [facility] with multiple low BS in am of 54, recheck BS came upContinue januvia 25 mg qdSSItruli city 1.5 weekly08/04 increase metformin 500 mg BID to 1000 mg po bid08/04 dc tresiba 20 units qhs for low BSMonitor fingerstic ks TID and HgA1C as outpt.(of note was on 35 units of insulin in recent past) Chronic pain 16855334 G8 9.29 followed by pain management here1/29 start gabapentin 100 mg po bidContinu eoxycodone 10 mg qid for painceleco xib 200 mg BIDAPAP 650 mg TID and q 4 hrs prn (NTE 3000 mg/d),Cont inue fall precaution s.Monitor for safety. Pain of left eye 1382664 001 86227 H57.12 reports left eye pain related to dropper touching his eye last nightno injuries or abnormalit y of eye notedwarm compress given at visit for comfort.mo nitor [id number] Sonja Gibbs NP [facility] [address] [place] [address] 08/09/2024 14:58:20 08/10/2024 11:35:43 Diabetes mellitus 26397434 E11.9 Last HgA1C was 7.9 in 11/2023.Fol lowed by endocrine at [facility] with multiple low BS in am of 47, recheck BS came up to 111Continu ejanuvia 25 mg qdSSImetfo rmin 1000 mg po bid2/3 dc trulicity 1.5 weekly(not e tresiba recently dc'd)Monit or fingerstic ks TID and HgA1C as outpt.(of note was on 35 units of long acting insulin in recent past) Chronic pain 58466418 G8 9.29 followed by pain management herecontga bapentin 100 mg po bidoxycodo ne 10 mg qid for painceleco xib 200 mg BIDAPAP 650 mg TID and q 4 hrs prn (NTE 3000 mg/d),Cont inue fall precaution s.Monitor for safety. Spinal mg nosis of lumbar region 43312541 M48.062 With chronic back pain and weakness reported since september or october 2023. 05/13/24 U/S done for swelling to lower right fingers both came back without fracture, dislocatio n, or thrombus.H e is followed outpt by vascular for his [...] rec for minimally invasive spine center at [facility] appt 08/0907/29/24 [facility] with rec:neuros urgery [...] of c3 to the superior endplate of c5.[facility] sent pt referral:rich rios was rec for minimally invasive spine center at [facility] appt 08/09 08/04 referral to [facility] ordered as recommende d with MRI results back today 08/04 from 07/30 08/09 awaiting consult from spine center2/ valerie appoint at minimally invasive spine center to discuss options08/[address] Aleisha padilla (neurosurg [place]) contPT/OT prn, currently not working with himremTime Bomb Deals barrington lift at this timeContin ue fall precaution s.Monitor for safety.Mon itor pain control see belowCeleb sandip remains on hold. Asthenia 26240489 R53.1 remains with weakness to left leg and right arm, and today with right leg weaknessri ght arm sling and left knee brace on in am and off in pm per dr anderson's ordersPT/O T eval and treat prn, off regular therapymon itor Pain in right arm 121827 004 M79.601 Denies trauma or injury. feels [...] above for management Osteoarthr itis of knee 396423170 M17.12 Z96.652 LTKR originally done on 02/11remains [...] lower ext neg for acute concernsmo nitor [id number] Sonja Gibbs NP [address] [address] 08/20/2024 10:30:03 08/23/2024 10:20:02 Chronic pain 41902235 G89.29 followed by pain management herecontga bapentin 100 mg po bidoxycodo ne 10 mg qid for painceleco xib 200 mg BIDAPAP 650 mg TID and q 4 hrs prn (NTE 3000 mg/d),Cont inue fall precaution s.Monitor for safety. Spinal mg nosis of lumbar region 04904318 M48.062 With chronic back pain and weakness reported since september or october 2023. 05/13/24 U/S done for swelling to lower right fingers both came back without fracture, dislocatio n, or thrombus.H e is followed outpt by vascular for his [...] rec for minimally invasive spine center at [facility] appt 08/0907/29/24 [facility] with rec:neuros urgery [...] of c3 to the superior endplate of c5.[facility] sent pt referral:rich rios was rec for minimally invasive spine center at [facility] appt 08/09 08/04 referral to [facility] ordered as recommendgabriel d with MRI results back today 08/04 from 07/30 08/09 awaiting consult from spine center08/11 fu appoint at minimally invasive spine center to discuss options08/[address] Aleisha padilla (neurosurg [place]) dc' [facility] spine center with Dr. Isabel did a [...] pending contPT/OT prn, currently not working with himremarnoldo yorkyer lift at this timeContin ue fall precaution s.Monitor for safety.Mon itor pain control see belowCeleb sandip remains on hold. Asthenia 05375309 R53.1 remains with weakness to left leg and right arm, and today with right leg weaknessri ght arm sling and left knee brace on in am and off in pm per dr anderson's ordersPT/O T eval and treat prn, off regular therapymon itor Health Concerns Section Related Observation LastModified by Organization Detai ls LastModified Time None Recorded Concern Status LastModified by Organization Details LastModified Time None Recorded Payers Encounter Date Sequence Insurance Name Policy Number Policy Richardson Covered Member ID Richardson Member ID Guarantor Name 08/20/2024 1 [facility] - DOS ON OR AFTER 2022 - MEDICARE [place]VANTAGE [place] (MEDICARE REPLACEMENT/ADV ANTAGE - PPO) Carlos Olmedosoumya [id number] Carlos Crespotessie Notes Date Note Type Note Provider Name and Address Organization Details Recorded Time 08/20/2024 text/html Carlos is seen fo r an acute rounding visit today. Carlos is a 68 yo male seen sp spinal surgery on 08/19/[address] Isabel for anterior cervical discectomy and fusion.Rec to stay hydrated, remove dressing on post day one and leave steri strips intact to fall off on there own. Activity as tolerated. Resume aspirin 81 mg po on 08/26/24 daily. Fu September 09 with clinic. On exam, He is lying on his back, in NAD. He states he is able to move legs now with some improvement. He requests ice to the shoulder and neck which is ordered prn today. His dressing removed from his mid neck c/d/i and steri strips intact without bleeding. No other concerns. vitals stable . Sonja Gibbs NP [address] [place] [address], [address], [place], [address], [facility] 08/20/2024 10:42:26
--- OUTSIDE RECORDS SUMMARY | 2024-08-24 11:04 | XMS_ITS | Encounter Summary ---
Author Organization [facility] Address [address] [place] [address] Care Team Providers Care Building Services Supervisor Name Role Phone Tram Álvarez MD Primary Care Provider [phone] Encounter Details Date Type Department Care Team (Late st Contact Info) Description 05/28/2024 Lab Requisition [facility] - Main Lab [address] [place] [address] Prince Le MD [address] [facility] [address] [place], [address] Essential (primary) hypertension Social History Tobacco [...] LAB CHEMISTRY METHOD 05/31/2024 11:37 AM EST [facility] Potassium 4.5 3.5 - 5.5 mmol/L LAB CHEMISTRY METHOD 05/31/2024 11:37 AM EST [facility] Chloride 108 96 - 110 mmol/L LAB CHEMISTRY METHOD 05/31/2024 11:37 AM [facility] CO2 28 21 - 32 mmol/L LAB CHEMISTRY METHOD 05/31/2024 11:37 AM [facility] Anion Gap 6 3 - 11 LAB CHEMISTRY METHOD 05/31/2024 11:37 AM [facility] Glucose 104(H) 70 - 100 mg/dL LAB CHEMISTRY METHOD 05/31/2024 11:37 AM [facility] BUN 25 5 - 25 mg/dL LAB CHEMISTRY METHOD 05/31/2024 11:37 AM [facility] Creatinine 1.15 0.70 - 1.30 mg/dL LAB CHEMISTRY METHOD 05/31/2024 11:37 AM [facility] eGFR 69 >=60 mL/min/1. 73m2 LAB CHEMISTRY METHOD 05/31/2024 11:37 AM [facility] Comment:Calculation based on the??Chronic Kidney Disease Epidemiology Collaboration (CKD-EPI) equation refit??without adjustment for race. BUN/Creatinine Ratio 21.7 LAB CHEMISTRY METHOD 05/31/2024 11:37 AM [facility] Calcium 9.2 8.5 - 10.5 mg/dL LAB CHEMISTRY METHOD 05/31/2024 11:37 AM [facility] Blood Venous blood specimen / Unknown Venipuncture / Unknown 05/31/2024 7:20 AM EST 05/31/2024 10:13 AM EST us Prince Le MD LAB BLOOD ORDERABLES Final Resul t [facility] [address] [place] [address], * (ABNORMAL) Complete blood count (05/31/2024 7:20 AM EST) WBC 8.8 4.8 - 10.8 K/mcL LAB HEMETOLOGY METHOD 05/31/2024 10:39 AM [facility] RBC 5.10 4.50 - 5.50 M/mcL LAB HEMETOLOGY METHOD 05/31/2024 10:39 AM [facility] Hemoglobin 14.2 13.5 - 17.5 g/dL LAB HEMETOLOGY METHOD 05/31/2024 10:39 AM [facility] Hematocrit 44.7 42.0 - 54.0 % LAB HEMETOLOGY METHOD 05/31/2024 10:39 AM [facility] MCV 87.0 79.0 - 98.0 FL LAB HEMETOLOGY METHOD 05/31/2024 10:39 AM [facility] MCH 27.6 27.0 - 32.0 pcg LAB HEMETOLOGY METHOD 05/31/2024 10:39 AM [facility] MCHC 31.8(L) 32.0 - 37.0 g/dL LAB HEMETOLOGY METHOD 05/31/2024 10:39 AM [facility] RDW 16.5(H) 11.0 - 15.0 % LAB HEMETOLOGY METHOD 05/31/2024 10:39 AM [facility] Platelets 242 130 - 400 K/mcL LAB HEMETOLOGY METHOD 05/31/2024 10:39 AM [facility] MPV 12.5(H) 7.0 - 11.0 FL LAB HEMETOLOGY METHOD 05/31/2024 10:39 AM [facility] NRBC 0.0 <1.0 % LAB HEMETOLOGY METHOD 05/31/2024 10:39 AM [facility] NRBC Absolute 0.00 <0.10 K/mcL LAB HEMETOLOGY METHOD 05/31/2024 10:39 AM [facility] Blood Venous blood specimen / Unknown Venipuncture / Unknown 05/31/2024 7:20 AM EST 05/31/2024 10:16 AM EST us Prince Le MD LAB BLOOD ORDERABLES Final Resul t [facility] [address] [place] [address], [place] [phone] documented in this encounter Visit Diagnoses Diagnosis Essential (primary) hypertension Unspecified essential hypertension documented in this encounter Care Teams Building Services Supervisor Relationship Specialty Start Date End Date Tram Álvarez MD [address] [facility] , [address] [facility] D/B/A: [facility] JAS Duque PCP - General Internal Medicine 03/30/18 documented as of this encounter
--- OUTSIDE RECORDS SUMMARY | 2024-08-24 11:04 | XMS_ITS | Data Portability ---
Author Organization [facility], Main Office Address [address] [facility], [address] [place] [address] Care Team Providers Care Operater Name Role Phone LANG HERRERA Primary Care Provider [facility] [place] - 4TH FLOOR OTHER Assessment No assessment [...] Address Organization Details Recorded Time Diabetes mellitus 91986434 Active 2019 YANG SWEET [address] [facility], [address], [place], [address], [facility] 0 09:29:33 Depressive disorder 16722959 Active 2019 YANG SWEET [address] [facility], [address], [place], [address], [facility] 0 09:29:39 Essential hypertensio n 17120572 Active 2019 YANG SWEET [address], [place], [address], [facility] 0 09:29:47 Hypercholes terolemia 44404846 Active 2019 YANG SWEET [address], [address], [place], [address], [facility] 0 09:29:57 Vitamin D deficiency 98461316 Active 2019 YANG SWEET [address], [place], [address], [facility] 0 09:30:10 Insomnia 499578110 Active 2019 YANG SWEET [address], [place], [address], [place] - [facility] 0 09:30:19 Spinal stenosis of lumbar region 22997324 Active 2019 YANG SWEET [address], [place], [address], [place] - [facility] 0 09:30:43 Total knee replacement Active 2022 Sonja Gibbs NP [address] , [address], [place], [address], [facility] 3 09:12:50 Acute pain of joint of knee 9929591159721 04 Active 2022 Sonja Gibbs NP [address] [facility], [address], [place], [address], [facility] 3 09:14:53 Constipatio n 54110172 Active 2022 Sonja Gibbs NP [address] [facility], [address], [place], [address], [facility] 3 10:15:39 Osteoarthri tis of knee 914767727 Active 2022 Judie Camacho MD [address] [facility], [address], [place], [address], [facility] 3 20:37:14 Chronic kidney disease stage 1 175407950 Active 2022 Judie Camacho MD [address] [facility], [address], [place], [address], [facility] 3 20:53:16 Chronic diastolic heart failure 617310599 Active 2023 Judie Camacho MD [address] [facility], [address], [place], [address], [facility] 4 21:28:14 Chronic kidney disease stage 2 360259971 Active 2023 Judie Camacho MD [address] [facility], [address], [place], [address], [facility] 4 21:28:20 Problem Notes None recorded. Procedures Surgical History Date Name Laterality Status Provider Name and Address Organization Details Recorded Time laminotomy completed YANG SWEET [address] [facility], [address], [place], [address], [facility] 01/06/2020 09:27:06 Imaging Results None recorded. Procedure Notes None recorded. Medical Equipment None Reported. Allergies Allergen ID Allergen Name Allergen Category Reaction Reaction Severity Criticality Documentation Date Start Date Code Code System Note Provider Name and Address Organization Details Recorded Time 31963 Product containin g penicilli n (product) medicatio n rash Not available Not available 01/06/2020 26115 8001 SNOMED Not Available Not Available Not [...] Details Last Updated DateTime 5 198.12 cm 69156.1 8 g 21.5 kg/m2 78 /min 18 /min 98.6 [degF] 97 % 97 % 131 mm[Hg] 74 mm[Hg] Sonja Gibbs NP [address] [facility], [address], [place], [address], [facility] 5 08:04:57 Date Recorded Body height Body mass index (BMI) Body weight Heart rate Respiratory rate Body temperature Oxygen saturation Oxygen saturation in Arterial blood by Pulse oximetry Systolic blood pressure Diastolic blood pressure Provider Name and Address Organization Details Last Updated DateTime 5 198.12 cm 21.5 kg/m2 37627.1 8 g 78 /min 18 /min 98.6 [degF] 97 % 97 % 114 mm[Hg] 74 mm[Hg] Sonja Gibbs NP [address] [address], [place], [address] , [facility] 5 09:06:17 Date Recorded Body height Body mass index (BMI) Body weight Heart rate Respiratory rate Body temperature Oxygen saturation Oxygen saturation in Arterial blood by Pulse oximetry Systolic blood pressure Diastolic blood pressure Provider Name and Address Organization Details Last Updated DateTime 5 198.12 cm 21.8 kg/m2 91032.9 6 g 89 /min 18 /min 98.6 [degF] 96 % 96 % 103 mm[Hg] 75 mm[Hg] Sonja Gibbs NP [address] [address], [place], [address], [facility] 5 14:59:10 Date Recorded Body height Body mass index (BMI) Body weight Heart rate Respiratory rate Body temperature Oxygen saturation Oxygen saturation in Arterial blood by Pulse oximetry Systolic blood pressure Diastolic blood pressure Provider Name and Address Organization Details Last Updated DateTime 5 198.12 cm 21.7 kg/m2 75997.3 7 g 76 /min 18 /min 97.4 [degF] 96 % 96 % 111 mm[Hg] 77 mm[Hg] Sonja Gibbs NP [address] [address], [place], [address] , [facility] 5 10:30:35 Date Recorded Body height Body mass index (BMI) Body weight Heart rate Respiratory rate Body temperature Oxygen saturation Oxygen saturation in Arterial blood by Pulse oximetry Systolic blood pressure Diastolic blood pressure Provider Name and Address Organization Details Last Updated DateTime 5 198.12 cm 21.7 kg/m2 90505.3 7 g 93 /min 18 /min 97.4 [degF] 94 % 94 % 115 mm[Hg] 77 mm[Hg] Sonja Gibbs NP [address], [address], [place], [address], [place] - [facility] 5 10:05:15 Social History Question Answer Notes LastModified by Organizat ion Details LastModified Time Tobacco Smoking Status Former Smoker Sonja Gibbs, DIAMOND [address], [address], [place], [address], [place] [facility] 02/14/2023 10:11:47 Do You Have An Advance Directive? Yes FULL CODE No Dialysis And Okay To Use Nutrition-us e Hydration Information not available 02/14/2023 What Is Your Level Of Alcohol Consumption? Occasional Information not available 02/14/2023 How Much Tobacco Do You Chew? None [id number] Information not available 05/02/2020 What Is Your Code Status? Full Code Information not available 02/14/2023 Do You Or Have You Ever Used E-cigarettes Or Vape? Never Used Electronic Cigarettes [id number] Information not available 05/02/2020 Where Do You Live? Apartment Elevator Information not available 02/19/2023 Legal Guardian? 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 Never Used Smokeless Tobacco [id number] Information not available 05/02/2020 Do You Use Any Illicit Or Recreational Drugs? No Information not available 02/14/2023 Has Tobacco Cessation Counseling Been Provided? No N/a As Pt. No Longer Smokes Information not available 02/19/2023 How Many Years Have You Smoked Tobacco? 40 [id number] Information not available 05/02/2020 Do You Have [...] Influenza, adjuvanted, quadrivalent, PF [facility]:57[facility]53 Influenza, adjuvanted, quadrivalent, PF 3 [facility] 11:45:01 pneumococcal polysaccharide PPV23 8 completed Sade Little [facility] 05/07/2024 15:50:52 influenza, unspecified formulation 4 completed Sade Little [facility] 05/07/2024 15:51:08 SARS-COV-2 (COVID-19) vaccine, UNSPECIFIED 1 completed Sade Little [facility] 05/07/2024 15:51:23 SARS-COV-2 (COVID-19) vaccine, UNSPECIFIED 1 completed Sade Little [facility] 05/07/2024 15:51:30 SARS-COV-2 (COVID-19) vaccine, UNSPECIFIED 3 completed Sade Little [facility] 05/07/2024 15:51:38 Past Encounters Encounter ID Performer Location Encounter Start Date Encounter Closed Date Diagnosis/Indication Diagnosis SNOMED-CT Code Diagnosis ICD10 Code Diagnosis Note [id number] YANG SWEET [address] [address] 01/06/2020 09:16:35 01/10/2020 16:25:01 Spinal stenosis of lumbar region 97333796 M48.062 s/p L4-5 decompress ion 01/03/20 by [...] 10 days-appt already set up Diabetes mellitus 113987 09 E11.9 trulicity 1.5 mg q week on sundays lantus 45 units qd SSI januvia 100 mg qd monitor A1c monitor for s/s of hypo/hyper glycemia Essential hypertension 79907751 I10 amlodipine 5 mg qd benazepril 20 mg q hs and 40 mg q am HCTZ 50 mg qd monitor b/p and labs Hypercholesterolemia 136 68303 E78.2 atorvastat in 20 mg qd fenofibrat e 145 mg qd monitor labs Insomnia 527655631 G47.0 9 was on trazodone 50 mg [...] pt monitor mood Vitamin D deficiency 347 57360 E56.8 vitamin D3 1000 iu qd monitor levels [id number] [facility] [address] [facility] [place] [address] 01/07/2020 07:31:48 01/10/2020 16:31:47 Depressive disorder 84496292 F32.89 sertraline 50 mg dailywill monitor Diabetes mellitus 882498 09 E11.9 Humalog per sliding scaleJanuv ia 100 mg dailyLantu s 45 mg at hsmetformi n 1000 mg bidTrulici ty 1.5 mg weeklywill monitor Essential hypertension 59448705 I10 amlodipine 5 mg dailybenaz epril 40 mg dailyHCTZ 50 mg dailywill monitor Hypercholesterolemia 136 51614 E78.00 atorvastat in 20 mg dailyfenof ibrate 145 mg dailywill monitor Spinal mg nosis of lumbar region 72371673 M48.061 s/p recent decompress ion L4-5 cyclobenza tutu 10 mg tidnortrip tyline 25 mg bid diclofenac 75 mg bidgabapen tin 300 mg bid and 600 mg at hsoxycodon e 5-10 mg q4h prnfu neurosurge ryPT/OT [id number] PALAK BECKER, TECHNOLOGY INFUSION SPECIALIST [facility] [address] [address] 01/11/2020 08:12:58 01/14/2020 14:03:39 Depressive disorder 34718412 F32.9 sertraline 50 mg daily will monitor Spinal mg nosis of lumbar region 85166669 M48.061 cyclobenza tutu 10 mg tid nortriptyl ine 25 mg bid diclofenac 75 mg bid gabapentin 300 mg bid and 600 mg at hs oxycodone 5-10 mg q4h prn fu neurosurge ry PT/OT [id number] PALAK BECKER, TECHNOLOGY INFUSION SPECIALIST [facility] [address] 01/14/2020 07:57:00 01/18/2020 09:07:39 Depressive disorder 83424553 F32.9 sertraline 50 mg daily will monitor Diabetes mellitus 007310 09 E11.9 monitor poc glucose Humalog per sliding scaleJanuv ia 100 mg daily Lantus 45 mg at hs metformin 1000 mg bid Trulicity 1.5 mg weekly will monitor Essential hypertension 18439899 I10 amlodipine 5 mg dailybenaz epril 40 mg daily HCTZ 50 mg daily will monitor Hypercholesterolemia 136 26107 E78.00 atorvastat in 20 mg daily fenofibrat e 145 mg daily will monitor Spinal mg nosis of lumbar region 52850868 M48.061 cyclobenza tutu 10 mg tid nortriptyl ine 25 mg bid diclofenac 75 mg bid gabapentin 300 mg bid and 600 mg at hs oxycodone 5-10 mg q4h prn fu neurosurge ry PT/OT [id number] YANG SWEET [facility] [address] 01/17/2020 08:06:37 01/25/2020 11:54:15 Spinal stenosis of lumbar region 26539787 M48.062 s/p L4-5 decompress ion 01/03/20 by Tana neville on 01/08/20-75 mg bid oxycodone 5-10 mg q 4 hrs prn cyclobenza tutu 10 mg tid neurontin 300 mg bid and 600 mg q hs follow up with surgeon on 02/15/20 and as needed Diabetes mellitus 258848 09 E11.9 trulicity 1.5 mg q week on sundays lantus 45 units qd januvia 100 mg qd follow up with PCP Essential hypertension 34076024 I10 amlodipine 5 mg qd benazepril 40 mg q am HCTZ 50 mg qd follow up with PCP Hypercholesterolemia 136 84754 E78.2 atorvastat in 20 mg qd fenofibrat e 145 mg qd follow up with PCP Insomnia 101099416 G47.0 9 follow up with PCP Depressive disorder 3548 9007 F32.89 zoloft 50 mg qd nortriptyl ine 25 mg q 12 hrs follow up with PCP Vitamin D deficiency 347 71150 E56.8 vitamin D3 1000 iu qd follow up with PCP [id number] Sonja Gibbs NP [address] [address] 02/14/2023 08:55:37 02/19/2023 09:34:58 Spinal stenosis of lumbar region 73055938 M48.062 s/p L4-5 decompress ion 01/03/20 by Roel knee surgery oxycodonec yclobenzap rine 10 mg bedtime prnmonitor pain Diabetes mellitus 767745 09 E11.9 cont home regimentru licity 1.5 sc at 0900 on fridaytre iba 55 units sc bedtimemet formin 500 mg er bidjardian ce 25 mg qdvascepa 2 g po bidmonitor bs bid x 3 days and reeval Essential hypertension 99153835 I10 hydralazin e 10 mg po tidbenazep ril 40 mg q am (per dc instructio ns and pt on both)lisin opril 20 mg po daily (per dc instructio ns and pt on both)furos emide 20 mg po dailymonit or bp, hr Hypercholesterolemia 136 40760 E78.2 atorvastat in 20 mg qdfenofibr ate 145 mg qd Insomnia 139675782 G47.0 9 follow up with PCP Depressive disorder 3548 9007 F32.89 lorazepam 1 mg po bidmonitor for anxiety Vitamin D deficiency 347 62385 E56.8 vitamin D3 1000 iu qd Acute pain of joint of knee 5811601204 36537 M25.569 sp post op 02/11/23 total knee [...] stregth, gait trainingcb c bmp weekly Constipation 72014188 K5 9.00 post op constipati oncont docusate 100 mg po bid*start milk of magnesia 30 cc po today and q 24 hours prn constipati on [id number] Judie Camacho MD [address] [address] 02/18/2023 19:53:10 02/20/2023 08:52:13 Spinal stenosis of lumbar region 50728655 M48.062 With chronic back pain. Uses oxycodone 5 mg TID at baseline and cyclobenza tutu 10 mg qhs prnPT/OT as above.Tabitha tor pain Diabetes mellitus 811522 09 E11.9 Last HgA1C was 7.9 on 01/31/23, BS have been good since hereReport eden doesn't use all his meds regularly due to cost.Vasu nue trulicity 1.5 weekly, tresiba 55 U qd, metformin 500 mg BID, and jardiance 25 mg qdMonitor fingerstic ks BID and HgA1C as outpt. Essential hypertension 73394925 I10 BP in good control.Co ntinue hydralazin e 10 mg TID, benazepril 40 mg qd, lisinopril 20 mg qd and furosemide 20 mg qd.Monitor BP and labsUnclea r why pt is on 2 SHANNON inhibitors , but will leave for PCP to manage. Vitamin D deficiency 347 50232 E56.8 Continue vitamin D3 1000 IU qdMonitor as outpt. Constipation 98282068 K5 9.09 Will add miralax 17 gms qd and continue docusate 100 mg BID and MOM prn.Monito r bowel function Osteoarthr itis of knee 419488076 M17.12 Z96.652 Recovering slowly after LTKR.Vasu nue [...] f/u Chronic ki dney disease stage 1 296515515 N18.1 At baseline.C ontinue to avoid nephrotoxi c meds as able.Monit or labs.Renal consult prn. Hyperlipidemia 36424950 E78.49 E78.1 Last lipids in system from 02/2021, trig were still high, but TC and HDL ok.Continu e atorvastat in 20 mg qd, fenofibrat e 145 mg qd and vascepa 2 g BID.Will get lipid profile while here, then f/u with PCP as outpt. 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 was still on sertraline , but per inpt notes, not filled at either [facility] or [facility] recently.C ontinue lorazepam 1 mg BID.monito r for anxiety [id number] Sonja Gibbs, DIAMOND [facility] [address] [place] [address] 02/21/2023 10:00:03 02/25/2023 10:32:50 Osteoarthritis of knee 410160955 M17.12 Z96.652 LTKR originally done on ontinu [...] f/u Spinal mg nosis of lumbar region 99319576 M48.062 With chronic back pain.oxyco done 5 mg TID at baseline and cyclobenza tutu 10 mg qhs prn at baseline, now see above osteoarthr itis of knee for new pain regimenPT/ OT as above.Tabitha tor pain Diabetes mellitus 902330 09 E11.9 Last HgA1C was 7.9 on 01/31/23, BS have been good since hereContin uetrulicit y 1.5 weeklytres iba 55 U qdmetformi n 500 mg BID,jardia nce 25 mg qdMonitor fingerstic ks BID and HgA1C as outpt. Essential hypertension 74307420 I10 BP in good control. slightly high likely due to painContin uehydralaz ine 10 mg TIDbenazep ril 40 mg qdlisinopr il 20 mg qdfurosemi de 20 mg qd.Monitor BP and labsUnclea r why pt is on 2 SHANNON inhibitors , but will leave for PCP to manage. (pt on this regimen for many years and reports it works) Hyperlipidemia 77308051 E78.49 E78.1 Last lipids in system from 02/2021, trig were still high, but TC and HDL ok.Continu eatorvasta tin 20 mg qdfenofibr ate 145 mg qdvascepa 2 g BID.lipid profile pendingf/u with PCP as outpt. Mixed anxi ety and depressive disorder 952941211 F41.8 Per pt. was still on sertraline , but per inpt notes, not filled at either [facility] or [facility] recently.C ontinuelor azepam 1 mg BID.monito r for anxiety Vitamin D deficiency 347 29934 E56.8 Continuevi tamin D3 1000 IU qdMonitor as outpt. Constipation 84965649 K5 9.09 with hard stools per report latelymira lax 17 gms qddocusate 100 mg BIDMOM prn.Monito r bowel function Chronic ki dney disease stage 1 076656511 N18.1 At baseline.C ontinue to avoid nephrotoxi c meds as able.Monit or labs.Renal consult prn. [id number] Sonja Gibbs NP [address] [address] 02/24/2023 08:59:01 02/28/2023 10:19:51 Osteoarthritis of knee 825677854 M17.12 Z96.652 LTKR originally done on inc [...] ortho on 02/[address] [place] with office as pt states his cheng states it is for PT)Keep aquacel dressing in place until f/u Diabetes mellitus 781041 09 E11.9 Last HgA1C was 7.9 on 01/31/23, BS have been good since hereContin uetrulicit y 1.5 weeklytres iba 55 U qdmetformi n 500 mg BID,jardia nce 25 mg qdMonitor fingerstic ks BID and HgA1C as outpt. Spinal mg nosis of lumbar region 04908304 M48.062 With chronic back pain.oxyco done 5 mg TID at baseline and cyclobenza tutu 10 mg qhs prn at baseline, now see above osteoarthr itis of knee for new pain regimenPT/ OT as above.Tabitha tor pain Essential hypertension 03836074 I10 BP slightly high likely due to painContin uehydralaz ine 10 mg TIDbenazep ril 40 mg qdlisinopr il 20 mg qdfurosemi de 20 mg qd.Monitor BP and labsUnclea r why pt is on 2 SHANNON inhibitors , but will leave for PCP to manage. (pt on this regimen for many years and reports it works) Hyperlipidemia 42966633 E78.49 E78.1 Last lipids in system from 02/2021, trig were still high, but TC and HDL ok.Continu eatorvasta tin 20 mg qdfenofibr ate 145 mg qdvascepa 2 g BID.lipid profile pendingf/u with PCP as outpt. Mixed anxi ety and depressive disorder 697769424 F41.8 Per pt. was still on sertraline , but per inpt notes, not filled at either [facility] or [facility] recently.C ontinuelor azepam 1 mg BID.monito r for anxiety Vitamin D deficiency 347 86885 E56.8 Continuevi tamin D3 1000 IU qdMonitor as outpt. Constipation 38105752 K5 9.09 with hard stools per report latelyincr ease miralax 17 gms qd to bidcont docusate 100 mg BIDMOM prn. q 24 hours if hard stools or no bmMonitor bowel function Chronic ki dney disease stage 1 016725068 N18.1 At baseline.C ontinue to avoid nephrotoxi c meds as able.Monit or labs.Renal consult prn. [id number] Sonja Gibbs NP [address] [address] 02/28/2023 08:24:09 03/03/2023 11:01:20 Osteoarthritis of knee 755271781 M17.12 Z96.652 LTKR originally done on oxy [...] and make 2 week appt today Constipation 89594619 K5 9.09 resolvingc ontmiralax 17 gms qd to biddocusat e 100 mg BIDMOM prn. q 24 hours if hard stools or no bmMonitor bowel function Diabetes mellitus 917484 09 E11.9 Last HgA1C was 7.9 on 01/31/23, BS have been good since hereContin uetrulicit y 1.5 weeklytres iba 55 U qdmetformi n 500 mg BID,jardia nce 25 mg qdMonitor fingerstic ks BID and HgA1C as outpt. Spinal mg nosis of lumbar region 51957668 M48.062 With chronic back pain.oxyco done 5 mg TID at baseline and cyclobenza tutu 10 mg qhs prn at baseline, now see above osteoarthr itis of knee for new pain regimenPT/ OT as above.Tabitha tor pain Essential hypertension 69944352 I10 BP slightly high likely due to pain, will monitor closelyCon tinuehydra lazine 10 mg TIDbenazep ril 40 mg qdlisinopr il 20 mg qdfurosemi de 20 mg qd.Monitor BP and labsUnclea r why pt is on 2 SHANNON inhibitors , but will leave for PCP to manage. (pt on this regimen for many years and reports it works) Hyperlipidemia 92003451 E78.49 E78.1 Last lipids in system from 02/2021, trig were still high, but TC and HDL ok.Continu eatorvasta tin 20 mg qdfenofibr ate 145 mg qdvascepa 2 g BID.lipid profile pendingf/u with PCP as outpt. Mixed anxi ety and depressive disorder 611579317 F41.8 Per pt. was still on sertraline , but per inpt notes, not filled at either [facility] or [facility] recently.C ontinuelor azepam 1 mg BID.monito r for anxiety Vitamin D deficiency 347 40379 E56.8 Continuevi tamin D3 1000 IU qdMonitor as outpt. Chronic ki dney disease stage 1 119650923 N18.1 At baseline.C ontinue to avoid nephrotoxi c meds as able.Monit or labs.Renal consult prn. [id number] Sonja Gibbs, DIAMOND [address] [address] 03/03/2023 08:59:22 03/05/2023 08:05:09 Osteoarthritis of knee 798232183 M17.12 Z96.652 LTKR originally done on oxy [...] and make fu appt-still no note Constipation 23043803 K5 9.09 better on this regimencon tmiralax 17 gms qd to biddocusat e 100 mg BIDMOM prn. q 24 hours if hard stools or no bmMonitor bowel function Diabetes mellitus 794657 09 E11.9 Last HgA1C was 7.9 on 01/31/23, BS have been good since hereContin uetrulicit y 1.5 weeklytres iba 55 U qdmetformi n 500 mg BID,jardia nce 25 mg qdMonitor fingerstic ks BID and HgA1C as outpt. Spinal mg nosis of lumbar region 90154955 M48.062 With chronic back pain.oxyco done 5 mg TID at baseline and cyclobenza tutu 10 mg qhs prn at baseline, now see above with osteoarthr itis of knee for new pain regimenPT/ OT as above.Tabitha tor pain Essential hypertension 40030097 I10 BP slightly high likely due to pain now improving, will monitor closely 130s/70sCo ntinuehydr alazine 10 mg TIDbenazep ril 40 mg qdlisinopr il 20 mg qdfurosemi de 20 mg qd.Monitor BP and labsUnclea r why pt is on 2 SHANNON inhibitors , but will leave for PCP to manage. (pt on this regimen for many years and reports it works) Hyperlipidemia 96688842 E78.49 E78.1 Last lipids in system from 02/2021, trig were still high, but TC and HDL ok.Continu eatorvasta tin 20 mg qdfenofibr ate 145 mg qdvascepa 2 g BID.lipid profile pendingf/u with PCP as outpt. Mixed anxi ety and depressive disorder 217718488 F41.8 Per pt. was still on sertraline , but per inpt notes, not filled at either [facility] or [facility] recently.C ontinuelor azepam 1 mg BID.monito r for anxiety Chronic ki dney disease stage 1 800294953 N18.1 At baseline.C ontinue to avoid nephrotoxi c meds as able.Monit or labs.Renal consult prn. Edema of l ower extremity 786330069 R60.0 nsg and pt state bilateral feet swelling, now better this am after feet up all night, likely dependent as he is up more throughout the day 03/03 start compressio n stockings on in am off in pmmonitor [id number] Sonja Gibbs NP [address] [place] [address] 03/06/2023 11:01:35 03/11/2023 09:41:09 Osteoarthritis of knee 689154962 M17.12 Z96.652 LTKR originally done on 02/11oxycodo [...] ortho on 02/[address] [place]ana Apple [place] [place] appt with office as pt states his cheng states it is for PT)fu with ortho and pcp outpt and PT services amended orderpt has pain and oxycodone not availablet ramadol 100 mg po q 6 hours prn x 24 hoursmonit or Constipation 07505025 K5 9.09 miralax 17 gms qd to bid, titrate as neededdocu sate 100 mg BIDMOM prn. q 24 hours if hard stools or no bmMonitor bowel function outpt with vna pcp Diabetes mellitus 489649 09 E11.9 Last HgA1C was 7.9 on 01/31/23, BS have been good since heretrulic ity 1.5 weeklytres iba 55 U qdmetformi n 500 mg BID,jardia nce 25 mg qdMonitor fingerstic ks BID and HgA1C as outpt.foll ow with pcp outpt Spinal mg nosis of lumbar region 81384421 M48.062 With chronic back pain.oxyco done 5 mg TID at baseline(s ee increased regimen above osteoarthr itis please ) and cyclobenza tutu 10 mg qhs prn at baselinePT /OT as above.Tabitha tor pain outpt with pcp Essential hypertension 09184288 I10 BP slightly high likely due to painContin uehydralaz ine 10 mg TIDbenazep ril 40 mg qdlisinopr il 20 mg qdfurosemi de 20 mg qd.Monitor BP and labsUnclea r why pt is on 2 SHANNON inhibitors , but will leave for PCP to manage outpt. (pt on this regimen for many years and reports it works) Hyperlipidemia 16418286 E78.49 E78.1 Last lipids in system from 02/2021, trig were still high, but TC and HDL ok.Continu eatorvasta tin 20 mg qdfenofibr ate 145 mg qdvascepa 2 g BID.lipid profile pendingf/u with PCP as outpt. Mixed anxi ety and depressive disorder 227987031 F41.8 Per pt. was still on sertraline , but per inpt notes, not filled at either [facility] or [facility] recently.C ontinuelor azepam 1 mg BID.monito r for anxiety outpt with pcp Vitamin D deficiency 347 68908 E56.8 Continuevi tamin D3 1000 IU qdMonitor as outpt with pcp Chronic ki dney disease stage 1 433198247 N18.1 At baseline.C ontinue to avoid nephrotoxi c meds as able.Monit or labs.Renal consult prn outpt Hypercholesterolemia 136 35820 E78.2 atorvastat in 20 mg qdfenofibr ate 145 mg qdfu with pcp outpt Insomnia 624150782 G47.0 9 follow up with PCP outpt [id number] [facility] [address] 05/07/2024 18:25:29 05/10/2024 08:52:32 Chronic diastolic heart failure 106335497 I50.32 Pt says he never had any [...] labs. Spinal mg nosis of lumbar region 89570558 M48.062 With chronic back pain. Uses oxycodone 10 mg QID at baseline (checked in [facility]).W ritten for 5 mg QID at hospital, will change back to baseline dose.Very deconditio amaury.Needs PT/OT for strengthen ing, balance, gait training, safety and function.C ontinue fall precaution s.Monitor for safety.Mon itor pain controlCel ebrex on hold. Hypercholesterolemia 136 21201 E78.2 Continue atorvastat in 20 mg qd, fenofibrat e 145 mg qd, vascepa 2 g BID, and ASA 81 mg qd.Monitor labs as outpt. Essential hypertension 33071850 I10 SBP a little high yesterday, not checked todayConti nue meds as above and amlodipine 2.5 mg qd.Monitor BP and labsDaily BPs ordered. Diabetes mellitus 722878 09 E11.9 Last HgA1C was 7.9 in 11/2023.Fol lowed by endocrine at [facility].Contin ue trulicity 1.5 weekly, tresiba 35 U qd, metformin 500 mg BID, januvia 25 mg qd, and SSITresiba not yet delivered, ok to use Lantus instead tonight.Mo nitor fingerstic ks TID and HgA1C as outpt. Depressive disorder 4918 9007 F32.89 In hx.On no meds.Monit or mood.Psych consult prn. Chronic ki dney disease stage 2 317775916 N18.2 At baseline.C ontinue to avoid nephrotoxi c meds as able.Monit or labs.Renal consult prn. Benign pro static hyperplasia without outflow obstruction 464383772 N40.0 In hx, with some issues with retention at times.Cont inue tamsulosin 0.4 mg qd. [id number] MARIE TORRES NP [address] [address] 05/13/2024 13:47:03 05/14/2024 10:52:03 Chronic diastolic heart failure 159664059 I50.32 Pt says he never had any [...] 3 Spinal mg nosis of lumbar region 13740164 M48.062 With chronic back pain. Uses oxycodone 10 mg QID at baseline (checked in [facility]).W benitez for 5 mg QID at hospital, will change back to baseline dose.Very deconditio amaury.Needs PT/OT for strengthen ing, balance, gait training, safety and function.C ontinue fall precaution s.Monitor for safety.Fri itor pain controlCel ebrex on hold. Diabetes mellitus 403704 09 E11.9 Last HgA1C was 7.9 in 11/2023.Fol lowed by endocrine at [facility].Contin ue trulicity 1.5 weekly, tresiba 35 U qd, metformin 500 mg BID, januvia 25 mg qd, and SSITresiba not yet delivered, ok to use Lantus instead tonight.Mo nitor fingerstic ks TID and HgA1C as outpt. Essential hypertension 09697806 I10 SBP a little high yesterday, not checked todayConti nue meds as above and amlodipine 2.5 mg qd.Monitor BP and labsDaily BPs ordered. Chronic ki dney disease stage 2 317933014 N18.2 At baseline.C ontinue to avoid nephrotoxi c meds as able.Monit or labs.Renal consult prn. Hypercholesterolemia 136 40800 E78.2 Continue atorvastat in 20 mg qd, fenofibrat e 145 mg qd, vascepa 2 g BID, and ASA 81 mg qd.Monitor labs as outpt. Depressive disorder 3548 9007 F32.89 In hx.On no meds.Monit or mood.Psych consult prn. Benign pro static hyperplasia without outflow obstruction 856323454 N40.0 In hx, with some issues with retention at times.Cont inue tamsulosin 0.4 mg qd. Pain in right arm 328711 004 M79.601 New onset, x 2-3d. Denies trauma or injury.Exa m limited due to painPMR assessed as well.Plan -Check x rays and venous USOxycodon e already available for pain.Monit or closely. [id number] Sonja Gibbs NP [address] [address] 05/14/2024 11:54:20 05/17/2024 11:03:10 Chronic diastolic heart failure 103595252 I50.32 Pt's main c/o was and continues [...] today Spinal mg nosis of lumbar region 39993087 M48.062 With chronic back pain. hx of oxycodone 10 mg QID at baseline (TECHNOLOGY INFUSION SPECIALIST checked in [facility]). and changed to baseline dose as hosp decreased it to 5mg QID prnVery deconditio amaury.Needs PT/OT for strengthen ing, balance, gait training, safety and function.C ontinue fall precaution s.Monitor for safety.Mon itor pain controlCel ebrex on hold. Diabetes mellitus 498368 09 E11.9 BS 127 today and stable, [facility] HgA[facility]C was 7.9 in 11/2023.[place] 1.5 weekly, tresiba 35 U qd, metformin 500 mg BID, januvia 25 mg qd, and SSIMonitor fingerstic ks TID and HgA1C as outpt. Essential hypertension 84965912 I10 bp stable 128/72 todayConti nue meds as above and amlodipine 2.5 mg qd.Monitor BP and labsDaily BPs ordered. Chronic ki dney disease stage 2 539463491 N18.2 At baseline.C ontinue to avoid nephrotoxi c meds as able.Monit or labs.Renal consult prn. Hypercholesterolemia 136 93745 E78.2 Continueat orvastatin 20 mg qd, fenofibrat e 145 mg qd, vascepa 2 g BID, and ASA 81 mg qd.Monitor labs as outpt. Depressive disorder 3548 9007 F32.89 In hx.On no meds.Monit or mood.Psych consult prn. Benign pro static hyperplasia without outflow obstruction 684874399 N40.0 In hx, with some issues with retention at times.Cont inuetamsul osin 0.4 mg qd. Pain in right arm 190571 004 M79.601 New onset, x 2-3d. Denies trauma or injury. feels it is improvingx rays and venous US to right arm negative for acute findingsOx ycodone for pain.05/14 seen by physiatry on 05/13 rec: tyl 1000 mg po tid and lidocaine patch, will agree and order todayMonit or closely. Dizziness 478246186 R42 pt reports dizziness today directly related to the room being hot05/14 requests to move room, decrease heat or leave facility, nursing aware and heat reduced, vitals and BS stablemoni tor closely for improvemen t or changes Tinea pedis 3044457 B35. 3 clotrimazo le 1 % cream bid x 10 daysmonito r [id number] Sonja Gibbs NP [address] [address] 05/20/2024 07:43:04 05/21/2024 11:07:38 Pain in right arm 747238296 M79.601 New onset, x 2-3d. Denies trauma or injury. feels it is improvingx rays and venous US to right arm negative for acute findingsOx ycodone for pain.physi atry rec tyl 1000 mg po tid and lidocaine patch which is helping but remains with pain. will reconsult1 07/20 will increase cyclobenza tutu to bid todayMonit or closely. Tinea pedis 6264128 B35. 3 improving slightlycl otrimazole 1 % cream bid x 10 daysmonito r Chronic di astolic heart failure 310463415 I50.32 Pt's main c/o was and continues [...] x1 Spinal mg nosis of lumbar region 52511666 M48.062 With chronic back pain. hx of oxycodone 10 mg QID at baseline (TECHNOLOGY INFUSION SPECIALIST checked in [facility] home dose).cont PT/OT for strengthen ing, balance, gait training, safety and function.C ontinue fall precaution s.Monitor for safety.Mon itor pain controlCel ebrex on hold. Diabetes mellitus 248353 09 E11.9 BS 102-182 stable, [facility] HgA1C was 7.9 in 11[facility]2023.[facility], tresiba 35 U qd, metformin 500 mg BID, januvia 25 mg qd, and SSIMonitor fingerstic ks TID and HgA1C as outpt. Essential hypertension 05045242 I10 bp stable 126/69 todayConti nue meds as above and amlodipine 2.5 mg qd.Monitor BP and labsDaily BPs ordered. Chronic ki dney disease stage 2 380389384 N18.2 At baseline.C ontinue to avoid nephrotoxi c meds as able.Monit or labs.Renal consult prn. Hypercholesterolemia 136 85882 E78.2 Continueat orvastatin 20 mg qd, fenofibrat e 145 mg qd, vascepa 2 g BID, and ASA 81 mg qd.Monitor labs as outpt. Depressive disorder 2398 9007 F32.89 In hx.On no meds.Monit or mood.Psych consult prn. Benign pro static hyperplasia without outflow obstruction 789322287 N40.0 In hx, with some issues with retention at times.Cont inuetamsul osin 0.4 mg qd. [id number] Sonja Gibbs, DIAMOND [facility] [address] [place] [address] 05/27/2024 13:47:02 05/28/2024 10:07:06 Pain in right arm 857775693 M79.601 Denies trauma or injury. feels it is improving. refuses additional meds for pain todayx rays and venous US to right arm negative for acute findingsOx ycodone for pain.physi atry rec tyl 1000 mg po tid and lidocaine patch which is helpingcyc lobenzapri ne to bid todayMonit or closely. Tinea pedis 1071619 B35. 3 improvingc lotrimazol e 1 % cream bid x 10 days to completemo nitor Chronic di astolic heart failure 538801656 I50.32 Pt's main c/o was and continues [...] above Spinal mg nosis of lumbar region 67126104 M48.062 With chronic back pain. hx of oxycodone 10 mg QID at baseline, will cont(TECHNOLOGY INFUSION SPECIALIST checked in [facility] home dose).cont PT/OT for strengthen ing, balance, gait training, safety and function.C ontinue fall precaution s.Monitor for safety.Mon itor pain controlCel ebrex remains on hold. Diabetes mellitus 514208 09 E11.9 BS 100s-occ 200s stable, [facility] outptLast HgA1C was 7.9 in 11/2023.Con [place] 1.5 weekly, tresiba 35 U qd, metformin 500 mg BID, januvia 25 mg qd, and SSIMonitor fingerstic ks TID and HgA1C as outpt. Essential hypertension 46620232 I10 bp stableCont inue meds as above and amlodipine 2.5 mg qd.Monitor BP and labs Chronic ki dney disease stage 2 493633389 N18.2 At baseline.C ontinue to avoid nephrotoxi c meds as able.Monit or labs.Renal consult prn. Hypercholesterolemia 136 12686 E78.2 Continueat orvastatin 20 mg qd, fenofibrat e 145 mg qd, vascepa 2 g BID, and ASA 81 mg qd.Monitor labs as outpt. Depressive disorder 3548 9007 F32.89 a little down today, wishes his progress was futher, but reports okayOn no meds.Monit or mood.Psych consult prn. Benign pro static hyperplasia without outflow obstruction 823569455 N40.0 In hx, with some issues with retention at times.Cont inuetamsul osin 0.4 mg qd. Asthenia 92962505 R53.1 remains with weakness to legs and armsPT/OT eval and treatmonit or [id number] Sonja Gibbs NP [address] [address] 05/31/2024 10:47:07 06/02/2024 08:35:29 Pain in right arm 848852877 M79.601 Denies trauma or injury. feels it is improving. refuses additional meds for pain today but requests the oxycodone 10 mg scheduled instead of prnx rays and venous US to right arm negative for acute vpmerdah79 /25 sched Oxycodone 10 mg po q 6 hours and dc prn doses for pain.physi atry rec tyl 1000 mg po tid and lidocaine patch which is helpingcyc lobenzapri ne bidMRI sched for 06/01 of back and hoping to get more info on status and diagnosisM onitor closely. Asthenia 62411059 R53.1 remains with weakness to legs and armsPT/OT eval and treatmonit or Depressive disorder 3542 9007 F32.89 a little down today, wishes his progress was futher, but reports okayOn no meds.Monit or mood.Psych consult prn. Chronic di astolic heart failure 323915354 I50.32 Pt's main c/o was and continues [...] stable Spinal mg nosis of lumbar region 33028902 M48.062 With chronic back pain. hx of oxycodone 10 mg QID at baseline, will cont(TECHNOLOGY INFUSION SPECIALIST checked in [facility] home dose). MRI sched for 06/01 of back and hoping to get more info on status and diagnosis contPT/OT for strengthen ing, balance, gait training, safety and function.C ontinue fall precaution s.Monitor for safety.Mon itor pain controlCel ebrex remains on hold. Diabetes mellitus 963967 09 E11.9 BS 100s-occ 200s stable, [facility] outptLast HgA1C was 7.9 in 11/2023.Con [place] 1.5 weekly, tresiba 35 U qd, metformin 500 mg BID, januvia 25 mg qd, and SSIMonitor fingerstic ks TID and HgA1C as outpt. Essential hypertension 88425253 I10 bp stableCont inue meds as above and amlodipine 2.5 mg qd.Monitor BP and labs Chronic ki dney disease stage 2 857570629 N18.2 At baseline.C ontinue to avoid nephrotoxi c meds as able.Monit or labs.Renal consult prn. [id number] Sonja Gibbs, [facility] [address] 06/17/2024 08:35:00 06/18/2024 14:22:00 Spinal stenosis of lumbar region 78358082 M48.062 With chronic back pain. hx of [...] His pcp Dr Jacinto referred him to [facility] with appt [...] remains on hold. Pain in right arm 686097 004 M79.601 Denies trauma or injury. feels it is improving. has decreased rom and lymphedema for some time nowcontphy siatry prn consultedc onttyl 1000 mg po tid and lidocaine patch which is helpingsch ed Oxycodone 10 mg po q 6 hours and dc prn doses for pain.cyclo benzaprine bidMRI sched for 06/01 of back results pending. nsg obtainingM onitor closely. Asthenia 47576982 R53.1 remains with weakness to left leg and right armPT/OT eval and treat prn, off regular therapymon itor Osteoarthr itis of knee 876540569 M17.12 Z96.652 LTKR originally done on 02/11remains [...] today on 06/17monit or Nausea and vomiting 3 1999 R11.2 likely related to constipati onsee belowzofra n 4 mg po q 6 hours prn n/v x 30 days Constipation 49533967 K5 9.09 unclear why bowel meds decreased recently, now with 6 days of constipati onmiralax 17 gms prn qd, titrate as neededdocu sate 100 mg daily06/17 MOM 30 cc when he returns from appt and give bisacodyl supp if no results in a few hoursMonit or bowel function outpt with [facility] pcp [id number] MARIE TORRES NP [facility] [address] 06/22/2024 12:27:29 06/23/2024 09:31:59 Gastroesophageal reflux disease without esophagitis 852019233 K21.9 Using TUMS frequently for GERD/GI sx.Start pepcid 20 mg bidMonitor sx.If remain problemati c, consider trial of PPI [id number] Sonja Gibbs NP [facility] [address] [address] 06/23/2024 13:31:14 06/24/2024 12:10:49 Asthenia 02602742 R53.1 remains with weakness to left leg and right armPT/OT eval and treat prn, off regular therapymon itor Constipation 61715775 K5 9.09 unclear why bowel meds decreased recently, now with 2 days of constipati on and continues with this every couple of days give mom 30 cc and bisacodyl 10 pr supp nowcont miralax 17 gms prn daily(sche duled)cydney a plus 2 tabs dailydc docusateMo nitor bowel function Spinal mg nosis of lumbar region 41994362 M48.062 With chronic back pain. hx of [...] Apple 06/24 for right shoulder painalso 07/29/24 [facility] at 1 pm. contPT/OT for strengthen ing, balance, gait training, safety and function prnremains barrington lift at this timeContin ue fall precaution s.Monitor for safety.Mon itor pain controlCel ebrex remains on hold. Pain in right arm 496279 004 M79.601 Denies trauma or injury. feels it is improving. has decreased rom and lymphedema for some time nowcontphy siatry prn consultedc onttyl 1000 mg po tid and lidocaine patch which is helpingsch eduled Oxycodone 10 mg po q 6 hours and dc prn doses for pain.cyclo benzaprine bidMonitor closely.se e above for management Osteoarthr itis of knee 322293946 M17.12 Z96.652 LTKR originally done on 02/11remains [...] 06/17monit or Chronic di astolic heart failure 930029259 I50.32 Pt says he never had any [...] fluid status, wts and labs. Diabetes mellitus 603334 09 E11.9 Last HgA1C was 7.9 in 11/2023.Fol lowed by endocrine at [facility].Contin uetrulicit y 1.5 weekly, tresiba 35 U qd, metformin 500 mg BID, januvia 25 mg qd, and SSIMonitor fingerstic ks TID and HgA1C as outpt. Essential hypertension 39086163 I10 stable 133/82Cont inue meds as above and amlodipine 2.5 mg qd.Monitor BP and labsDaily BPs ordered. Depressive disorder 3548 9007 F32.89 In hx.On no meds.Monit or mood.Psych consult prn. Benign pro static hyperplasia without outflow obstruction 879150561 N40.0 In hx, with some issues with retention at times.Cont inuetamsul osin 0.4 mg qd. [id number] Sonja Gibbs NP [address] [address] 06/25/2024 10:45:21 06/28/2024 14:12:37 Asthenia 27313898 R53.1 remains with weakness to left leg and right arm06/25 right arm and left knee brace on in am and off in pm per dr anderson's ordersPT/O T eval and treat prn, off regular therapymon itor Spinal mg nosis of lumbar region 36324376 M48.062 With chronic back pain. hx of [...] and off in pmfu after MRI 07/29/24 [facility] at 1 pm sched from outside provider contPT/OT for strengthen ing, balance, gait training, safety and function prnremains barrington lift at this timeContin ue fall precaution s.Monitor for safety.Margareth mccullough pain controlCel ebrex remains on hold. Pain in right arm 753135 004 M79.601 Denies trauma or injury. feels [...] above for management Osteoarthr itis of knee 684301023 M17.12 Z96.652 LTKR originally done on 02/11remains [...] ext today on 06/17monit or Diabetes mellitus 085018 09 E11.9 Last HgA1C was 7.9 in 11/2023.Fol lowed by endocrine at [facility].with BS of 58 on 06/25 and similar on 06/23, remains asymptomat icContinue trulicity 1.5 weekly, metformin 500 mg BID, januvia 25 mg qd, and SSI06/25 decrease (degludec) tresiba 30 U qd to 26 unitsMonit or fingerstic ks TID and HgA1C as outpt. [id number] [facility] [address] 07/01/2024 11:24:41 07/02/2024 11:53:48 Constipation 80301430 K59.09 Documented BM 06/24, 06/28Pt. states no [...] to scheduled dailyTo ER if condition worsens [id number] Sonja Gibbs NP [facility] [address] [address] 07/14/2024 13:30:49 07/16/2024 10:19:43 Diabetes mellitus 78382058 E11.9 Last HgA1C was 7.9 in 11/2023.Fol lowed by endocrine at [facility].with BS of 44 on 07/15 and similar in past, remains asymptomat icContinue trulicity 1.5 weekly, metformin 500 mg BID, januvia 25 mg qd, and SSI/8 decrease (degludec) tresiba 26 U qd to 20 unitsMonit or fingerstic ks TID and HgA1C as outpt.of note was on 35 units of insulin in recent past Asthenia 30490307 R53.1 remains with weakness to left leg and right arm12 right arm and left knee brace on in am and off in pm per dr anderson's ordersPT/O T eval and treat prn, off regular therapymon itor [id number] Sonja Gibbs NP [facility] [address] [address] 07/22/2024 14:17:32 07/23/2024 15:07:54 Constipation 23940116 K59.09 with regular bm per patient todayCurre ntly no abd. pain, no N/V.BS u6Jykuhuej e fluids, dietary fiber.cont senna plus 2 tabs qdmiralax dailyhouse bowel protocol prn Diabetes mellitus 708620 09 E11.9 Last HgA1C was 7.9 in 11/2023.Fol lowed by endocrine at [facility] with multiple low BS in amContinue trulicity 1.5 weeklymetf ormin 500 mg BIDanuvia 25 mg qd, and SSI(deglud ec)tresiba 20 unitsMonit or fingerstic ks TID and HgA1C as outpt.(of note was on 35 units of insulin in recent past) Asthenia 30392332 R53.1 remains with weakness to left leg and right arm, and today with right leg weaknessri ght arm and left knee brace on in am and off in pm per dr anderson's ordersPT/O T eval and treat prn, off regular jean mccullough Spinal mg nosis of lumbar region 91217365 M48.062 With chronic back pain. hx of [...] in pmfu after MRI sched /29/08 5 [facility] at 1 pm sched from outside providerco ntPT/OT for strengthen ing, balance, gait training, safety and function prnremains barrington lift at this timeContin ue fall precaution s.Monitor for safety.Margareth mccullough pain controlCel ebrex remains on hold. Pain in right arm 373308 004 M79.601 Denies trauma or injury. feels [...] above for management Osteoarthr itis of knee 474401039 M17.12 Z96.652 LTKR originally done on 02/11remains [...] concernsmo nitor Chronic di astolic heart failure 620032080 I50.32 per hosp report of CHF.he never [...] fluid status, wts and labs. Essential hypertension 95827618 I10 stableCont inue meds as above and amlodipine 2.5 mg qd.Monitor BP and labsDaily BPs ordered. Depressive disorder 3548 9007 F32.89 In hx.On no meds.Monit or mood.Psych consult prn. Benign pro static hyperplasia without outflow obstruction 200280573 N40.0 In hx, with some issues with retention at times.Cont inuetamsul osin 0.4 mg qd. Gastroesop hageal reflux disease without esophagitis 637070531 K21.9 Using TUMS frequently for GERD/GI sx. resolvingc ontpepcid 20 mg bidMonitor sx.If remain problemati c, consider trial of PPI Nausea and vomiting 1692 1999 R11.2 resolvedse e belowzofra n 4 mg po q 6 hours prn n/v x 30 days Chronic ki dney disease stage 2 112690387 N18.2 At baseline.C ontinue to avoid nephrotoxi c meds as able.Monit or labs.Renal consult prn. Hypercholesterolemia 136 31564 E78.2 Continueat orvastatin 20 mg qdfenofibr ate 145 mg qdvascepa 2 g BID,ASA 81 mg qd.Monitor labs as outpt. [id number] [facility] [address] [place] [address] 07/30/2024 08:03:45 08/03/2024 12:50:06 Spinal stenosis of lumbar region 93100094 M48.062 With chronic back pain and weakness [...] in pmfu after cervical MRI sched 07/3107/29/24 [facility] with rec:neuros urgery consult with Dr Serna 07/30 referral to [facility] ordered as recommende d, has MRI today. contPT/OT prn, currently not working with himremUrban Cargo lift at this timeContin ue fall precaution s.Monitor for safety.Mon itor pain controlCel ebrex remains on hold. Asthenia 31469462 R53.1 remains with weakness to left leg and right arm, and today with right leg weaknessri ght arm sling and left knee brace on in am and off in pm per dr anderson's ordersPT/O T eval and treat prn, off regular jean mccullough Pain in right arm 021445 004 M79.601 Denies trauma or injury. feels [...] above for management Osteoarthr itis of knee 269529420 M17.12 Z96.652 LTKR originally done on 02/11remains [...] lower ext neg for acute concernsmo nitor [id number] [facility] [address] 08/04/2024 09:05:47 08/06/2024 09:42:06 Spinal stenosis of lumbar region 43994540 M48.062 With chronic back pain and weakness [...] rec for minimally invasive spine center at [facility] appt 08/0907/29/24 [facility] with rec:neuros [...] of c3 to the superior endplate of c5.[facility] sent pt referral:rich rios was rec for minimally invasive spine center at [facility] appt 08/09 contPT/OT prn, currently not working with [employer] at this timeContin ue fall precaution s.Monitor for safety.Mon itor pain control see belowCeleb sandip remains on hold. Asthenia 54114607 R53.1 remains with weakness to left leg and right arm, and today with right leg weaknessri ght arm sling and left knee brace on in am and off in pm per dr anderson's ordersPT/O T eval and treat prn, off regular therapymon itor Pain in right arm 234021 004 M79.601 Denies trauma or injury. feels [...] above for management Osteoarthr itis of knee 254686372 M17.12 Z96.652 LTKR originally done on 02/11remains [...] neg for acute concernsmo nitor Diabetes mellitus 116488 09 E11.9 Last HgA1C was 7.9 in 11/2023.Fol lowed by endocrine at [facility] with multiple low BS in am of 54, recheck BS came upContinue januvia 25 mg qdSSItruli city 1.5 weekly08/04 increase metformin 500 mg BID to 1000 mg po bid08/04 dc tresiba 20 units qhs for low BSMonitor fingerstic ks TID and HgA1C as outpt.(of note was on 35 units of insulin in recent past) Chronic pain [id number] G8 9.29 followed by pain management here08/04 start gabapentin 100 mg po bidContinu eoxycodone 10 mg qid for painceleco xib 200 mg BIDAPAP 650 mg TID and q 4 hrs prn (NTE 3000 mg/d),Cont inue fall precaution s.Monitor for safety. Pain of left eye [id number] 001 24860 H57.12 reports left eye pain related to dropper touching his eye last nightno injuries or abnormalit y of eye notedwarm compress given at visit for comfort.mo nitor [id number] Sonja Gibbs, DIAMOND [facility] [address] [place] [address] 08/09/2024 14:58:20 08/10/2024 11:35:43 Diabetes mellitus [id number] E11.9 Last HgA1C was 7.9 in 11/2023.Fol lowed by endocrine at [facility] with multiple low BS in am of 47, recheck BS came up to 111Continu ejanuvia 25 mg qdSSImetfo rmin 1000 mg po bid2/3 dc trulicity 1.5 weekly(not e tresiba recently dc'd)Monit or fingerstic ks TID and HgA1C as outpt.(of note was on 35 units of long acting insulin in recent past) Chronic pain [id number] G8 9.29 followed by pain management herecontga bapentin 100 mg po bidoxycodo ne 10 mg qid for painceleco xib 200 mg BIDAPAP 650 mg TID and q 4 hrs prn (NTE 3000 mg/d),Cont inue fall precaution s.Monitor for safety. Spinal mg nosis of lumbar region [id number] M48.062 With chronic back pain and weakness [...] rec for minimally invasive spine center at [facility] appt 2/3 07/29/24 [facility] with rec:neuros urgery consult with Dr eSrna 07/30 MRI showing: severe spondylosi s of [...] of c3 to the superior endplate of c5.[facility] sent pt referral:rich rios was rec for minimally invasive spine center at [facility] [place] appt 08/09 08/04 referral to [facility] ordered as recommende d with MRI results back today 08/04 from 07/30 08/09 awaiting consult from spine center2 fu appoint at minimally invasive spine center to discuss options08/[address] Aleisha padilla (neurosurg [place]) contPT/OT prn, currently not working with himremarnoldo barrington lift at this timeContin ue fall precaution s.Monitor for safety.Mon itor pain control see belowCeleb sandip remains on hold. Asthenia [id number] R53.1 remains with weakness to left leg and right arm, and today with right leg weaknessri ght arm sling and left knee brace on in am and off in pm per dr anderson's ordersPT/O T eval and treat prn, off regular therapymon itor Pain in right arm [id number] 004 M79.601 Denies trauma or injury. feels [...] above for management Osteoarthr itis of knee [id number] M17.12 Z96.652 LTKR originally done on 02/11remains [...] lower ext neg for acute concernsmo nitor [id number] Sonja Gibbs NP [address] [address] 08/20/2024 10:30:03 08/23/2024 10:20:02 Chronic pain 09414005 G89.29 followed by pain management herecontga bapentin 100 mg po bidoxycodo ne 10 mg qid for painceleco xib 200 mg BIDAPAP 650 mg TID and q 4 hrs prn (NTE 3000 mg/d),Cont inue fall precaution s.Monitor for safety. Spinal mg nosis of lumbar region [id number] M48.062 With chronic back pain and weakness [...] rec for minimally invasive spine center at [facility] [place] appt 08/0907/29/24 [facility] with rec:neuros [...] of c3 to the superior endplate of c5.[facility] [place] sent pt referral:rich rios was rec for minimally invasive spine center at [facility] [place] appt 08/09 08/04 referral to [facility] ordered as recommende d with MRI results back today 08/04 from 07/30 08/09 awaiting consult from spine center08/11 fu appoint at minimally invasive spine center to discuss options08/[address] Aleisha padilla (neurosurg [place]) dc' [facility] spine center with Dr. Isabel did a [...] see belowCeleb sandip remains on hold. Asthenia [id number] R53.1 remains with weakness to left leg and right arm, and today with right leg weaknessri ght arm sling and left knee brace on in am and off in pm per dr anderson's ordersPT/O T eval and treat prn, off regular therapymon itor [id number] [facility] [address] 08/23/2024 09:57:33 08/23/2024 10:37:06 Spinal stenosis of lumbar region [id number] M48.062 With chronic back pain and weakness [...] rec for minimally invasive spine center at [facility] [place] appt /07/29/24 [facility] with rec:neuros [...] of c3 to the superior endplate of c5.[facility] sent pt referral:rich rios was rec for minimally invasive spine center at [facility] [place] [facility] appt 08/09 08/04 referral to [facility] ordered as recommende d with MRI results back today 08/04 from 07/30 08/09 awaiting consult from spine center08/11 fu appoint at minimally invasive spine center to discuss options08/[address] Aleisha padilla (neurosurg [place]) dc' [facility] [place] [place] spine center with Dr. Isabel did a [...] belowCeleb sandip remains on hold. Chronic pain [id number] G8 9.29 followed by pain management herecontga bapentin 100 mg po bidoxycodo ne 10 mg qid for painceleco xib 200 mg BIDAPAP 650 mg TID and q 4 hrs prn (NTE 3000 mg/d),Cont inue fall precaution s.Monitor for safety. Difficulty swallowing 28 [id number] R13.10 08/23 startpredn isone 40 mg po daily x 5 days, may crush and put in chocolate sauce to mask tastedieti destin consult for easy to swallow foodsadd glucerna tid with meals until able to tolerate foodschang e to liquid and puree diet until able to louise, and advancespe ech consult for diff swallowing asa resumed on 08/26monito r closely and follow labs and for [...] Richardson Member ID Guarantor Name 07/30/2024 1 [facility] - DOS ON OR AFTER 2022 - MEDICARE [place]VANTAGE [place]MEDICARE REPLACEMENT/ADV ANTAGE - PPO) Carlos Cabrera [id number] Carlos Crespozarin 08/04/2024 1 [facility] - DOS ON OR AFTER 2022 - MEDICARE [place]AGE [place]/ADV ANTAGE - PPO) Carlos Cabrera [id number] Carlos Cazarin 08/09/2024 1 [facility] ALLIANCE - DOS ON OR AFTER 2022 - [place]ICARE [place]AGE [place]/ADV ANTAGE - PPO) Carlos Cazarin [id number] Carlos Cazarin 08/20/2024 1 [facility] CARE ALLIANCE - DOS ON OR AFTER 2022 - [place]IC[place]AGE [place]AC[place]/ADV ANTAGE - PPO) Carlos Crespozasoumya [id number] Carlos Cazasoumya 08/23/2024 1 [facility] - DOS ON OR AFTER 2022 - [place]IC[place]/ADV ANTAGE - PPO) Carlos Cabrera [id number] Carlos Cabrera Notes Date Note Type Note Provider Name and Address Organization Details Recorded Time 07/30/2024 text/html Carlos is seen fo r an acute visit today. Carlos was originally admitted on 05/06 after a hospitalization for CHF exacerbation, edema, and weakness. CHF and edema resolved here. He has worked with rehab, but then plateaued and is now on prison care here. He is no longer receiving [...] His pcp Dr Jacinto referred him to [facility] with appt [...] has decreased strength also. He shows this TECHNOLOGY INFUSION SPECIALIST his appointment pickup is at 10:45 am today for the MRI. He reports pain is baseline with oxycodone and tolerable. Referral to Dr Serna is written for with all imaging to go with consult. Sonja Gibbs, TECHNOLOGY INFUSION SPECIALIST [address], [address], [place], [address], [facility] [place] 07/30/2024 09:06:11 08/04/2024 text/html Carlos is seen [...] His pcp Dr Jacinto referred him to [facility] with appt 07/29/24 at 1pm per pt. He is recommended to see Dr Serna. MRI done on 07/30 and referral and tests to [facility] for appt today.He also requested second opinion and was referred to minimally invasive surgery center at [facility] [place] with appointment on Friday08/09/24. of note: [...] but then plateaued and is now on prison care here. He is no longer receiving therapy here. He continues to need 2 max assist for transfers and requires a barrington lift and needs are not able to be met at home. On exam, Carlos is lying in bed and states he is okay . MRI results reviewed and he is onboard with plan for fu with [facility] minimally invasive spine center on 08/09 [...] weakness and leg weakness. Sonja Gibbs, DIAMOND [address], [address], [place], [address], [facility] [place] 08/04/2024 10:04:01 08/09/2024 text/html Carlos is seen [...] His pcp Dr Jacinto referred him to [facility] with appt 07/29/24 at 1pm per pt. He is recommended to see Dr Serna. MRI done.He also requested second opinion and was referred to minimally invasive surgery center at [facility] with appointment on Friday08/09/24. [...] but then plateaued and is now on prison care here. He is no longer receiving therapy here. He continues to need 2 max assist for transfers and requires a barrington lift and needs are not able to be met at home. Sonja Gibbs NP [address], [address], [place], [address], [facility] [employer] [facility] 08/09/2024 15:24:33 08/20/2024 text/html Carlos is seen fo r [...] concerns. vitals stable . Sonja Gibbs NP [address], [address], [place], [address], [facility] [employer] [facility] 08/20/2024 10:42:26 08/23/2024 text/html Carlos is seen fo r an acute rounding visit today. Carlos is a 68 yo male seen sp spinal surgery on 08/19/[address] Isabel for anterior cervical discectomy and fusion. Since back to [facility] he has had increased throat swelling from [...] take sips of fluids this am. Sonja Gibbs, DIAMOND [address], [address], [place], [address], [facility] [place] 08/23/2024 10:37:04
--- OUTSIDE RECORDS SUMMARY | 2024-08-24 11:04 | XMS_ITS | Clinical Summary ---
Author Organization [facility] Address [address] [place] [address] Care Team Providers Care Employee Communications Intern Name Role Phone Tram Royal MD Primary [...] age to complete this topic Care Teams Employee Communications Intern Relationship Specialty Start Date End Date Tram Royal MD [address] [facility] , [address] [facility] Physician Associ D/B/A: [facility] [place] [address] PCP - General Internal Medicine 03/30/18
== END 2024-08-24 10:30 | disposition home or self-care (01) ==
PROVIDERS: PCP Internal Medicine; Visit Provider Physician Assistant Surgical
DX: I83.11 Varicose veins of right lower extremity with inflammation (principal); I83.12 Varicose veins of left lower extremity with inflammation
CPT/HCPCS: 99214

== ENCOUNTER → 2024-08-24 10:07 | Outpatient (BNVA) | payer OTHER, SELFPAY | PROVIDERS: PCP Internal Medicine; Visit Provider Physician Assistant Surgical | DX: I83.11 Varicose veins of right lower extremity with inflammation (principal); I83.12 Varicose veins of left lower extremity with inflammation | CPT/HCPCS: 99212 ==

== ENCOUNTER 2024-09-09 11:35 | Outpatient (AMB) | payer OTHER, SELFPAY ==
--- NOTE | 2024-09-09 11:04 | A.SPINEOV_ITS ---
Intake Visit Reasons: 1st post op Intake Note: Mr. Cabrera is here today for his 1st post op appointment. Sterile Processing Technician Required: No Allergies Penicillins [PENICILLINS] Allergy (Severe, Verified 08/24/24 10:13) RASH jay pepper Allergy (Intermediate, Verified 08/24/24 10:13) Rash pepper (genus Capsicum) Adverse Reaction (Intermediate, Verified 08/24/24 10:13) rashes Assessment & Plan Assessment & Plan (1) H/O cervical spine surgery: Code(s): Z98.890 - Other specified postprocedural states Category: Surgical Plan Procedure: C4-C5, C5-C6 ACDF Carlos is a pleasant 68 year old male who underwent two level ACDF by Dr. Isabel a few weeks ago. To recap he was initially evaluated in clinic for severe spinal cord compression and cervical myelopathy. He presented as a classic case of progressive quadriparesis. His postoperative course was complicated by swallowing difficulties, which he presented to our emergency department for. He was sent in a course of prednisone to help reduce inflammation around the surgical site and discharged home without admission. He reports that today he feels he is doing much better. He has no issues with swallowing, and states that that problem has largely resolved. He feels his right arm has very little if any pain now. His legs have very little if any pain now. He feels he is able to move his legs much better when he is seated or lying down at his care facility. Unfortunately, he has largely unable to move his legs when he is seated in the wheelchair due to the positioning he is in. He continues to take his oxycodone pain medication while at the facility he is at. No new neurological deficits. The patient uses a wheelchair. He feels his sensation especially in the lower extremities is much improved compared to prior to surgery. His anterior incision site is closed and well healing with no signs of swelling or drainage. I am very pleased with Carlos's progress thus far since surgery. I would like to follow up with him again in 6 weeks and obtain a set of x-rays. Theron Isabel MD,PhD [facility] Coding Level of Care Code Global (92713) Diagnoses H/O cervical spine surgery Z98.890
--- OUTSIDE RECORDS SUMMARY | 2024-09-09 14:15 | XMS_ITS | Clinical Summary ---
Author Organization [facility] Address [address] [place] [address] Care Team Providers Care Plastics Design Engineer Name Role Phone Sade Dykes PA-C Primary Care Provider [phone] Source Comments PLEASE NOTE, if this patient [...] 60 Tab 0 12/01/19 14 Active Acidophilus-Pectin, Mckinley 25 million-100 cell-mg tabIndications:Dive rticulosis Take 1 tablet by mouth 2 (two) times daily. As directed by assemblyman or woman 100 tablet 3 01/31/20 14 Active benazepril [...] Plan of Treatment Not on file Insurance [facility] D[facility] D[facility]AL [id number] Care Teams Plastics Design Engineer Relationship Specialty Start Date End Date Sade Dykes PA-C [address] [place] [address] [facility] - General 04/14/13
--- OUTSIDE RECORDS SUMMARY | 2024-09-09 14:15 | XMS_ITS | Encounter Summary ---
Author Organization [facility] Address [address] [place] [address] Care Team Providers Care Herb Digger Name Role Phone Tram Álvarez MD Primary Care Provider [phone] Encounter Details Date Type Department Care Team (Late st Contact Info) Description 06/18/[address] [facility] - Main Lab [address] [place] [address] Prince Le MD [address] [facility] [address] [place], [address] Nausea with vomiting, unspecified; Chronic kidney [...] CHEMISTRY METHOD 06/18/2024 11:[address] [facility] Potassium 4.6 3.5 - 5.5 [...] Final Resul t [facility] [address] [place] [address], * (ABNORMAL) Complete blood count (06/18/2024 6:44 AM EST) WBC 8.4 4.8 - 10.8 K/[facility] LAB HEMETOLOGY METHOD 06/18/2024 10:46 AM [facility] RBC 5.10 4.50 - 5.50 M/[facility] LAB HEMETOLOGY METHOD 06/18/2024 10:46 AM [facility] Hemoglobin 14.2 13.5 - 17.5 g/dL LAB HEMETOLOGY METHOD 06/18/2024 10:46 AM [facility] Hematocrit 43.5 42.0 - 54.0 % LAB HEMETOLOGY METHOD 06/18/2024 10:46 AM [facility] MCV 86.1 79.0 - 98.0 FL LAB HEMETOLOGY METHOD 06/18/2024 10:46 AM [facility] MCH 28.1 27.0 - 32.0 pcg LAB HEMETOLOGY METHOD 06/18/2024 10:46 AM [facility] MCHC 32.6 32.0 - 37.0 g/dL LAB HEMETOLOGY METHOD 06/18/2024 10:46 AM [facility] LAB RDW 17.2(H) 11.0 - 15.0 % LAB HEMETOLOGY METHOD 06/18/2024 10:46 AM [facility] Platelets 248 130 - 400 K/[facility] LAB HEMETOLOGY METHOD 06/18/2024 10:46 AM [facility] MPV 12.7(H) 7.0 - 11.0 FL LAB HEMETOLOGY METHOD 06/18/2024 10:46 AM [facility] LAB NRBC 0.0 <1.0 % LAB HEMETOLOGY METHOD 06/18/2024 10:46 AM [facility] LAB NRBC Absolute 0.00 <0.10 K/[facility] LAB HEMETOLOGY METHOD 06/18/2024 10:46 AM [facility] Blood Venous blood specimen / Unknown Venipuncture / Unknown 06/18/2024 6:44 AM EST 06/18/2024 9:17 AM EST us Prince Le MD LAB BLOOD ORDERABLES Final Resul t [facility] ([facility] [address] [place] [address], documented in this encounter Visit Diagnoses Diagnosis Nausea with vomiting, unspecified Chronic kidney disease, unspecified documented in this encounter Care Teams Herb Digger Relationship Specialty Start Date End Date Tram Álvarez MD 2 [facility] , [address] Physician Associ D/B/A: [facility] [place] PCP - General Internal Medicine 03/30/18 documented as of this encounter
--- OUTSIDE RECORDS SUMMARY | 2024-09-09 14:15 | XMS_ITS | Encounter Summary ---
Author Organization [facility] Address [address] [place] [address] Care Team Providers Care Rn Documentation Specialist Name Role Phone Tram Álvarez MD Primary Care Provider [phone] Encounter Details Date Type Department Care Team (Late st Contact Info) Description 07/16/[address] [facility] - Main Lab [address] [place] [address] Prince Le MD [address] [facility] [address] [place], [address] Type 2 diabetes mellitus without complications [...] mg/dL LAB CHEMISTRY METHOD 07/16/2024 12:50 PM [facility] Blood Venous blood specimen / Unknown Venipuncture / Unknown 07/16/2024 8:00 AM EST 07/16/2024 11:21 AM EST us Prince Le MD LAB BLOOD ORDERABLES Final Resul t [facility] [address] [place] [address], [place] [phone] * (ABNORMAL) Comprehensive metabolic panel (07/16/2024 8:00 AM EST) Sodium 137 133 - 145 mmol/L LAB CHEMISTRY METHOD 07/16/2024 1:13 PM [facility] Potassium 5.1 3.5 - 5.5 mmol/L LAB CHEMISTRY METHOD 07/16/2024 1:13 PM [facility] Chloride 103 96 - 110 mmol/L LAB CHEMISTRY METHOD 07/16/2024 1:13 PM [facility] CO2 27 21 - 32 mmol/L LAB CHEMISTRY METHOD 07/16/2024 1:13 PM [facility] Anion Gap 7 3 - 11 LAB CHEMISTRY METHOD 07/16/2024 1:13 PM [facility] Glucose 40(L) 70 - 100 mg/dL LAB CHEMISTRY METHOD 07/16/2024 1:13 PM [facility] BUN 35(H) 5 - 25 mg/dL LAB CHEMISTRY METHOD 07/16/2024 1:13 PM [facility] Creatinine 1.27 0.70 - 1.30 mg/dL LAB CHEMISTRY METHOD 07/16/2024 1:13 PM [facility] LAB eGFR 62 >=60 mL/min/1. 73m2 LAB CHEMISTRY METHOD 07/16/2024 1:13 PM [facility] Comment:Calculation based on the??Chronic Kidney Disease Epidemiology Collaboration (CKD-EPI) equation refit??without adjustment for race. BUN/Creatinine Ratio 27.6 LAB CHEMISTRY METHOD 07/16/2024 1:13 PM [facility] Calcium 9.0 8.5 - 10.5 mg/dL LAB CHEMISTRY METHOD 07/16/2024 1:13 PM [facility] AST (SGOT) 18 10 - 42 unit/L LAB CHEMISTRY METHOD 07/16/2024 1:13 PM [facility] ALT (SGPT) 19 10 - 60 unit/L LAB CHEMISTRY METHOD 07/16/2024 1:13 PM [facility] Alkaline Phosphatase 62 42 - 121 unit/L LAB CHEMISTRY METHOD 07/16/2024 1:13 PM [facility] Total Protein 6.7 6.0 - 8.0 g/dL LAB CHEMISTRY METHOD 07/16/2024 1:13 PM [facility] Albumin 3.5 3.2 - 5.0 g/dL LAB CHEMISTRY METHOD 07/16/2024 1:13 PM [facility] Total Bilirubin 0.4 0.0 - 1.4 mg/dL LAB CHEMISTRY METHOD 07/16/2024 1:13 PM [facility] Blood Venous blood specimen / Unknown Venipuncture / Unknown 07/16/2024 8:00 AM EST 07/16/2024 11:21 AM EST us Prince Le MD LAB BLOOD ORDERABLES Final Resul t [facility] [address] [place] [address], * (ABNORMAL) Complete blood count (07/16/2024 8:00 AM EST) WBC 10.9(H) 4.8 - 10.8 K/mcL LAB HEMETOLOGY METHOD 07/16/2024 11:53 AM EST [facility] RBC 4.90 4.50 - 5.50 M/mcL LAB HEMETOLOGY METHOD 07/16/2024 11:53 AM [facility] Hemoglobin 13.4(L) 13.5 - 17.5 g/dL LAB HEMETOLOGY METHOD 07/16/2024 11:53 AM [facility] Hematocrit 41.6(L) 42.0 - 54.0 % LAB HEMETOLOGY METHOD 07/16/2024 11:53 AM [facility] MCV 85.1 79.0 - 98.0 FL LAB HEMETOLOGY METHOD 07/16/2024 11:53 AM [facility] MCH 27.4 27.0 - 32.0 pcg LAB HEMETOLOGY METHOD 07/16/2024 11:53 AM [facility] MCHC 32.2 32.0 - 37.0 g/dL LAB HEMETOLOGY METHOD 07/16/2024 11:53 AM [facility] RDW 18.3(H) 11.0 - 15.0 % LAB HEMETOLOGY METHOD 07/16/2024 11:53 AM [facility] Platelets 413(H) 130 - 400 K/mcL LAB HEMETOLOGY METHOD 07/16/2024 11:53 AM [facility] MPV 12.4(H) 7.0 - 11.0 FL LAB HEMETOLOGY METHOD 07/16/2024 11:53 AM [facility] NRBC 0.0 <1.0 % LAB HEMETOLOGY METHOD 07/16/2024 11:53 AM [facility] NRBC Absolute 0.00 <0.10 K/mcL LAB HEMETOLOGY METHOD 07/16/2024 11:53 AM [facility] Blood Venous blood specimen / Unknown Venipuncture / Unknown 07/16/2024 8:00 AM EST 07/16/2024 11:21 AM EST us Prince Le MD LAB BLOOD ORDERABLES Final [facility]ul [facility] [address] [place] [address], documented in this encounter Visit Diagnoses Diagnosis Type 2 diabetes mellitus without complications (CMS/HCC) documented in this encounter Care Teams Rn Documentation Specialist Relationship Specialty Start Date End Date Tram Álvarez MD 2 [facility] , [address] [facility] Physician Associ D/B/A: [facility] [place], [place] PCP - General Internal Medicine 03/30/18 documented as of this encounter
--- OUTSIDE RECORDS SUMMARY | 2024-09-09 14:15 | XMS_ITS | Data Portability ---
Author Organization [employer] [facility], [place] in - [employer] Address [address] [place] [address] Care Team Providers Care Assistant Men'S Lacrosse Coach Name Role Phone HIM CCA OTHER LANG [...] Available N ot Available [employer] Tirso 2 [place] active Not Available Not Available Not Available [...] SNOMED-CT Code Diagnosis ICD10 Code Diagnosis Note [id number] Alicia Perez MD Main - instED [address] [place] [phone] 04/05/2024 17:15:55 04/05/2024 20:37:12 Accidental fall [id number] I provided real -time medical direction via phone for this encounter, and was available for additional phone based assistance as needed. I have reviewed and agree with the Assessment and Plan as documented by the Distributor Advertising Material. Patient given the opportunit y to ask [...] OR AFTER 2022 - DUAL ELIGIBLE - GROUP HOME OPTIONS AND ONE CARE (MEDICARE REPLACEMENT/ADV ANTAGE - HMO) Carlos Cabrera [id number] Carlos Cabrera Notes Date Note Type Note Provider Name and Address Organization Details Recorded Time 04/05/2024 text/html CRC Nurse Triage Notes (Inder Sweeney): Chief Complaints: Falls Allergies: Unknown Comments: Deputy Jailer verified the Pt.'s name//address and phone number. [...] .................. .................. .................. .................. .................. .................. ............... Distributor [employer] Material Note From Dangelo Willis: Dispatched to the [...] he is working on with his PCP. [facility] was consulted. Red flags discussed. .................. .................. .................. .................. .................. .................. .................. ............... Disposition: Fulfilled Alicia Perez MD [address] [facility],[address], [place], [address], MOHINI PAGE 04/05/2024 20:37:09
--- OUTSIDE RECORDS SUMMARY | 2024-09-09 14:15 | XMS_ITS | Clinical Summary ---
Author Organization [facility] Facility Address [address] [place] [address] Care Team Providers Care Furnace Utility Operator Name Role Phone Tram Royal MD Primary Care Provider [phone] Allergies Active Allergy Reactions Criticality Noted Date [...] % PVNMA 04/28/2020 us [facility]version LAB [id number] LICITED RESULTS Final Result PVNMA from Last 3 Months or Most Recently Relevant to Health Maintenance Insurance [address] [place] [id number] [place] [address] [place] [phone] [place] Care Teams Furnace Utility Operator Relationship Specialty Start Date End Date Tram Royal MD [address] [place], [place] PCP - General 07/17/20
--- OUTSIDE RECORDS SUMMARY | 2024-09-09 14:15 | XMS_ITS | Encounter Summary ---
Author Organization [facility] Address [address] [place] [address] Care Team Providers Care Mat Machine Tender Name Role Phone Tram Álvarez MD Primary Care Provider [phone] Encounter Details Date Type Department Care Team (Late st Contact Info) Description 05/14/2024 Lab Requisition [facility] - Main Lab [address] [place] [address] Prince Le MD 38 [facility] [address] [place], [address] Essential (primary) hypertension Social History Tobacco [...] LAB CHEMISTRY METHOD 05/17/2024 10:43 AM EST [facility] Potassium 4.5 3.5 - 5.5 mmol/L LAB CHEMISTRY METHOD 05/17/2024 10:43 AM EST [facility] Chloride 110 96 - 110 [...] LAB BLOOD ORDERABLES Final Resul t [facility] LAB [address] [place] [address], * (ABNORMAL) Complete blood count (05/17/2024 6:41 [...] LAB BLOOD ORDERABLES Final [facility]ul t [facility] [address] [place] [address], [place] [phone] documented in this encounter Visit Diagnoses Diagnosis Essential (primary) hypertension Unspecified essential hypertension documented in this encounter Care Teams Mat Machine Tender Relationship Specialty Start Date End Date Tram Álvarez MD 2 [facility] , [address] [facility] Physician Associ D/B/A: [facility] [place]que PCP - General Internal Medicine 03/30/18 documented as of this encounter
--- OUTSIDE RECORDS SUMMARY | 2024-09-09 14:15 | XMS_ITS | Encounter Summary ---
Author Organization [facility] Address [address] [place] [address] Care Team Providers Care Sales Facilitator Name Role Phone Tram Álvarez MD Primary Care Provider [phone] Encounter Details Date Type Department Care Team (Late st Contact Info) Description 09/02/2024 Lab Requisition [facility] - Main Lab [address] [place] [address] Prince Le MD 38 [facility] [address] [place], [address] Type 2 diabetes mellitus without complications [...] Associated Diagnosis Comments COMPLETE BLOOD COUNT Routine 09/03/2024 6:35 AM EST Type 2 diabetes mellitus without complications (CMS/HCC) C-REACTIVE PROTEIN Routine 09/03/2024 6: 35 AM EST Type 2 diabetes mellitus without complications (CMS/HCC) COMPREHENSIVE METABOLIC PANEL Routine 09/03/2024 6:35 AM EST Type 2 diabetes mellitus without complications (CMS/HCC) documented in this encounter Results * (ABNORMAL) C-reactive protein (09/03/2024 6:35 AM EST) C-Reactive Protein 0.57(H) <=0.50 mg/dL LAB CHEMISTRY METHOD 09/03/2024 10:05 AM [facility] LAB Blood Venous blood specimen / Unknown Venipuncture / Unknown 09/03/2024 6:35 AM EST 09/03/2024 7:52 AM EST us Prince Le MD LAB BLOOD ORDERABLES Final Resul t [facility] LAB [address] [place] [address], * (ABNORMAL) Comprehensive metabolic panel (09/03/2024 6:35 AM EST) Sodium 138 133 - 145 mmol/L LAB CHEMISTRY METHOD 09/03/2024 9:59 AM [facility] Potassium 4.2 3.5 - 5.5 mmol/L LAB CHEMISTRY METHOD 09/03/2024 9:59 AM [facility] LAB Chloride 105 96 - 110 mmol/L LAB CHEMISTRY METHOD 09/03/2024 9:59 AM [facility] CO2 28 21 - 32 mmol/L LAB CHEMISTRY METHOD 09/03/2024 9:59 AM [facility] Anion Gap 5 3 - 11 LAB CHEMISTRY METHOD 09/03/2024 9:59 AM [facility] Glucose 120(H) 70 - 100 mg/dL LAB CHEMISTRY METHOD 09/03/2024 9:59 AM [facility] BUN 23 5 - 25 mg/dL LAB CHEMISTRY METHOD 09/03/2024 9:59 AM [facility] Creatinine 0.88 0.70 - 1.30 mg/dL LAB CHEMISTRY METHOD 09/03/2024 9:59 AM [facility] LAB eGFR 94 >=60 mL/min/1. 73m2 LAB CHEMISTRY METHOD 09/03/2024 9:59 AM [facility] LAB Comment:Calculation based on the??Chronic Kidney Disease Epidemiology Collaboration (CKD-EPI) equation refit??without adjustment for race. BUN/Creatinine Ratio 26.1 LAB CHEMISTRY METHOD 09/03/2024 9:59 AM [facility] Calcium 9.1 8.5 - 10.5 mg/dL LAB CHEMISTRY METHOD 09/03/2024 9:59 AM [facility] AST (SGOT) 23 10 - 42 unit/L LAB CHEMISTRY METHOD 09/03/2024 9:59 AM [facility] ALT (SGPT) 29 10 - 60 unit/L LAB CHEMISTRY METHOD 09/03/2024 9:59 AM [facility] Alkaline Phosphatase 59 42 - 121 unit/L LAB CHEMISTRY METHOD 09/03/2024 9:59 AM [facility] Total Protein 5.9(L) 6.0 - 8.0 g/dL LAB CHEMISTRY METHOD 09/03/2024 9:59 AM [facility] Albumin 3.1(L) 3.2 - 5.0 g/dL LAB CHEMISTRY METHOD 09/03/2024 9:59 AM [facility] Total Bilirubin 0.4 0.0 - 1.4 mg/dL LAB CHEMISTRY METHOD 09/03/2024 9:59 AM [facility] Blood Venous blood specimen / Unknown Venipuncture / Unknown 09/03/2024 6:35 AM EST 09/03/2024 7:52 AM EST us Prince Le MD LAB BLOOD ORDERABLES Final Resul t [facility] [address] [place] [address], * (ABNORMAL) Complete blood count (09/03/2024 6:35 AM EST) WBC 9.2 4.8 - 10.8 K/mcL LAB HEMETOLOGY METHOD 09/03/2024 8:43 AM [facility] RBC 3.70(L) 4.50 - 5.50 M/mcL LAB HEMETOLOGY METHOD 09/03/2024 8:43 AM [facility] Hemoglobin 10.8(L) 13.5 - 17.5 g/dL LAB HEMETOLOGY METHOD 09/03/2024 8:43 AM [facility] Hematocrit 34.4(L) 42.0 - 54.0 % LAB HEMETOLOGY METHOD 09/03/2024 8:43 AM [facility] MCV 93.5 79.0 - 98.0 FL LAB HEMETOLOGY METHOD 09/03/2024 8:43 AM [facility] MCH 29.3 27.0 - 32.0 pcg LAB HEMETOLOGY METHOD 09/03/2024 8:43 AM [facility] MCHC 31.4(L) 32.0 - 37.0 g/dL LAB HEMETOLOGY METHOD 09/03/2024 8:43 AM [facility] RDW 20.0(H) 11.0 - 15.0 % LAB HEMETOLOGY METHOD 09/03/2024 8:43 AM [facility] Platelets 333 130 - 400 K/mcL LAB HEMETOLOGY METHOD 09/03/2024 8:43 AM [facility] MPV 12.3(H) 7.0 - 11.0 FL LAB HEMETOLOGY METHOD 09/03/2024 8:43 AM [facility] NRBC 0.0 <1.0 % LAB HEMETOLOGY METHOD 09/03/2024 8:43 AM [facility] NRBC Absolute 0.00 <0.10 K/mcL LAB HEMETOLOGY METHOD 09/03/2024 8:43 AM [facility] Blood Venous blood specimen / Unknown Venipuncture / Unknown 09/03/2024 6:35 AM EST 09/03/2024 7:52 AM EST us Prince Le MD LAB BLOOD ORDERABLES Final [facility]ul t [facility] [address] [place] [address], documented in this encounter Visit Diagnoses Diagnosis Type 2 diabetes mellitus without complications (CMS/HCC) documented in this encounter Care Teams Sales Facilitator Relationship Specialty Start Date End Date Tram Álvarez MD 2 [facility] , [address] [facility] Physician Associ D/B/A: [facility] [place] PCP - General Internal Medicine 03/30/18 documented as of this encounter
--- OUTSIDE RECORDS SUMMARY | 2024-09-09 14:15 | XMS_ITS | Encounter Summary ---
Author Organization [facility] Address [address] [place] [address] Care Team Providers Care Patient Care Provider Name Role Phone Tram Álvarez MD Primary Care Provider [phone] Encounter Details Date Type Department Care Team (Late st Contact Info) Description 08/19/2024 Lab Requisition [facility] - Main Lab [address] [place] [address] Prince Le MD 38 [facility] [address] [place], [address] Type 2 diabetes mellitus without complications [...] mg/dL LAB CHEMISTRY METHOD 08/20/2024 11:12 AM [facility] Blood Venous blood specimen / Unknown Venipuncture / Unknown 08/20/2024 7:39 AM EST 08/20/2024 10:36 AM EST us Prince Le MD LAB BLOOD ORDERABLES Final Resul t [facility] [address] [place] [address], * (ABNORMAL) Comprehensive metabolic panel (08/20/2024 7:39 AM EST) Sodium 139 133 - 145 mmol/L LAB CHEMISTRY METHOD 08/20/2024 11:11 AM [facility] Potassium 4.5 3.5 - 5.5 mmol/L LAB CHEMISTRY METHOD 08/20/2024 11:11 AM [facility] Chloride 109 96 - 110 mmol/L LAB CHEMISTRY METHOD 08/20/2024 11:11 AM [facility] CO2 26 21 - 32 mmol/L LAB CHEMISTRY METHOD 08/20/2024 11:11 AM [facility] Anion Gap 4 3 - 11 LAB CHEMISTRY METHOD 08/20/2024 11:11 AM [facility] Glucose 120(H) 70 - 100 mg/dL LAB CHEMISTRY METHOD 08/20/2024 11:11 AM [facility] BUN 22 5 - 25 mg/dL LAB CHEMISTRY METHOD 08/20/2024 11:11 AM [facility] Creatinine 0.78 0.70 - 1.30 mg/dL LAB CHEMISTRY METHOD 08/20/2024 11:11 AM [facility] LAB eGFR 97 >=60 mL/min/1. 73m2 LAB CHEMISTRY METHOD 08/20/2024 11:11 AM [facility] Comment:Calculation based on the??Chronic Kidney Disease Epidemiology Collaboration (CKD-EPI) equation refit??without adjustment for race. BUN/Creatinine Ratio 28.2 LAB CHEMISTRY METHOD 08/20/2024 11:11 AM [facility] Calcium 9.3 8.5 - 10.5 mg/dL LAB CHEMISTRY METHOD 08/20/2024 11:11 AM [facility] AST (SGOT) 35 10 - 42 unit/L LAB CHEMISTRY METHOD 08/20/2024 11:11 AM [facility] ALT (SGPT) 30 10 - 60 unit/L LAB CHEMISTRY METHOD 08/20/2024 11:11 AM [facility] Alkaline Phosphatase 39(L) 42 - 121 unit/L LAB CHEMISTRY METHOD 08/20/2024 11:11 AM [facility] Total Protein 6.6 6.0 - 8.0 g/dL LAB CHEMISTRY METHOD 08/20/2024 11:11 AM [facility] Albumin 3.5 3.2 - 5.0 g/dL LAB CHEMISTRY METHOD 08/20/2024 11:11 AM [facility] Total Bilirubin 0.8 0.0 - 1.4 mg/dL LAB CHEMISTRY METHOD 08/20/2024 11:11 AM [facility] Blood Venous blood specimen / Unknown Venipuncture / Unknown 08/20/2024 7:39 AM EST 08/20/2024 10:36 AM EST us Prince Le MD LAB BLOOD ORDERABLES Final Resul t [facility] [address] [place] [address], * (ABNORMAL) Complete blood count (08/20/2024 7:39 AM EST) WBC 13.2(H) 4.8 - 10.8 K/mcL LAB HEMETOLOGY METHOD 08/20/2024 10:52 AM [facility] RBC 3.90(L) 4.50 - 5.50 M/mcL LAB HEMETOLOGY METHOD 08/20/2024 10:52 AM [facility] Hemoglobin 11.0(L) 13.5 - 17.5 g/dL LAB HEMETOLOGY METHOD 08/20/2024 10:52 AM [facility] Hematocrit 33.1(L) 42.0 - 54.0 % LAB HEMETOLOGY METHOD 08/20/2024 10:52 AM [facility] MCV 85.3 79.0 - 98.0 FL LAB HEMETOLOGY METHOD 08/20/2024 10:52 AM [facility] MCH 28.4 27.0 - 32.0 pcg LAB HEMETOLOGY METHOD 08/20/2024 10:52 AM [facility] MCHC 33.2 32.0 - 37.0 g/dL LAB HEMETOLOGY METHOD 08/20/2024 10:52 AM [facility] RDW 20.9(H) 11.0 - 15.0 % LAB HEMETOLOGY METHOD 08/20/2024 10:52 AM [facility] Platelets 329 130 - 400 K/mcL LAB HEMETOLOGY METHOD 08/20/2024 10:52 AM [facility] MPV 13.2(H) 7.0 - 11.0 FL LAB HEMETOLOGY METHOD 08/20/2024 10:52 AM [facility] NRBC 0.0 <1.0 % LAB HEMETOLOGY METHOD 08/20/2024 10:52 AM [facility] LAB NRBC Absolute 0.00 <0.10 K/mcL LAB HEMETOLOGY METHOD 08/20/2024 10:52 AM [facility] Blood Venous blood specimen / Unknown Venipuncture / Unknown 08/20/2024 7:39 AM EST 08/20/2024 10:36 AM EST us Prince Le MD LAB BLOOD ORDERABLES Final Resul t [facility] [address] [place] [address], documented in this encounter Visit Diagnoses Diagnosis Type 2 diabetes mellitus without complications (CMS/HCC) documented in this encounter Care Teams Patient Care Provider Relationship Specialty Start Date End Date Tram Álvarez MD 2 [facility] , [address] [facility] Physician Associ D/B/A: [facility] [place], [place] PCP - General Internal Medicine 03/30/18 documented as of this encounter
--- OUTSIDE RECORDS SUMMARY | 2024-09-09 14:15 | XMS_ITS | Encounter Summary ---
Author Organization [facility] Address [address] [place] [address] Care Team Providers Care Plastics Design Engineer Name Role Phone Tram Álvarez MD Primary Care Provider [phone] Encounter Details Date Type Department Care Team (Late st Contact Info) Description 08/12/2024 Lab Requisition [facility] - Main Lab [address] [place] [address] Prince Le MD 38 [facility] [address] [place], [address] Type 2 diabetes mellitus without complications [...] mg/dL LAB CHEMISTRY METHOD 08/13/2024 11:42 AM [facility] Blood Venous blood specimen / Unknown Venipuncture / Unknown 08/13/2024 7:38 AM EST 08/13/2024 11:02 AM EST us Prince Le MD LAB BLOOD ORDERABLES Final Resul t [facility] [address] [place] [address], * (ABNORMAL) Comprehensive metabolic panel (08/13/2024 7:38 AM EST) Sodium 137 133 - 145 mmol/L LAB CHEMISTRY METHOD 08/13/2024 11:42 AM [facility] Potassium 5.1 3.5 - 5.5 mmol/L LAB CHEMISTRY METHOD 08/13/2024 11:42 AM [facility] Chloride 103 96 - 110 mmol/L LAB CHEMISTRY METHOD 08/13/2024 11:42 AM [facility] CO2 29 21 - 32 mmol/L LAB CHEMISTRY METHOD 08/13/2024 11:42 AM [facility] Anion Gap 5 3 - 11 LAB CHEMISTRY METHOD 08/13/2024 11:42 AM [facility] Glucose 90 70 - 100 mg/dL LAB CHEMISTRY METHOD 08/13/2024 11:42 AM [facility] BUN 31(H) 5 - 25 mg/dL LAB CHEMISTRY METHOD 08/13/2024 11:42 AM [facility] Creatinine 0.98 0.70 - 1.30 mg/dL LAB CHEMISTRY METHOD 08/13/2024 11:42 AM [facility] eGFR 84 >=60 mL/min/1. 73m2 LAB CHEMISTRY METHOD 08/13/2024 11:42 AM [facility] Comment:Calculation based on the??Chronic Kidney Disease Epidemiology Collaboration (CKD-EPI) equation refit??without adjustment for race. BUN/Creatinine Ratio 31.6 LAB CHEMISTRY METHOD 08/13/2024 11:42 AM [facility] Calcium 9.2 8.5 - 10.5 mg/dL LAB CHEMISTRY METHOD 08/13/2024 11:42 AM [facility] AST (SGOT) 36 10 - 42 unit/L LAB CHEMISTRY METHOD 08/13/2024 11:42 AM [facility] ALT (SGPT) 32 10 - 60 unit/L LAB CHEMISTRY METHOD 08/13/2024 11:42 AM [facility] Alkaline Phosphatase 47 42 - 121 unit/L LAB CHEMISTRY METHOD 08/13/2024 11:42 AM [facility] Total Protein 6.4 6.0 - 8.0 g/dL LAB CHEMISTRY METHOD 08/13/2024 11:42 AM [facility] Albumin 3.4 3.2 - 5.0 g/dL LAB CHEMISTRY METHOD 08/13/2024 11:42 AM [facility] Total Bilirubin 0.6 0.0 - 1.4 mg/dL LAB CHEMISTRY METHOD 08/13/2024 11:42 AM [facility] Blood Venous blood specimen / Unknown Venipuncture / Unknown 08/13/2024 7:38 AM EST 08/13/2024 11:02 AM EST us Prince Le MD LAB BLOOD ORDERABLES Final Resul t [facility] [address] [place] [address], * (ABNORMAL) Complete blood count (08/13/2024 7:30 AM EST) WBC 8.4 4.8 - 10.8 K/mcL LAB HEMETOLOGY METHOD 08/13/2024 11:11 AM [facility] RBC 4.20(L) 4.50 - 5.50 M/mcL LAB HEMETOLOGY METHOD 08/13/2024 11:11 AM [facility] Hemoglobin 11.6(L) 13.5 - 17.5 g/dL LAB HEMETOLOGY METHOD 08/13/2024 11:11 AM [facility] Hematocrit 36.1(L) 42.0 - 54.0 % LAB HEMETOLOGY METHOD 08/13/2024 11:11 AM [facility] MCV 86.2 79.0 - 98.0 FL LAB HEMETOLOGY METHOD 08/13/2024 11:11 AM [facility] MCH 27.7 27.0 - 32.0 pcg LAB HEMETOLOGY METHOD 08/13/2024 11:11 AM [facility] MCHC 32.1 32.0 - 37.0 g/dL LAB HEMETOLOGY METHOD 08/13/2024 11:11 AM [facility] RDW 21.2(H) 11.0 - 15.0 % LAB HEMETOLOGY METHOD 08/13/2024 11:11 AM [facility] Platelets 338 130 - 400 K/mcL LAB HEMETOLOGY METHOD 08/13/2024 11:11 AM [facility] MPV 12.8(H) 7.0 - 11.0 FL LAB HEMETOLOGY METHOD 08/13/2024 11:11 AM [facility] NRBC 0.0 <1.0 % LAB HEMETOLOGY METHOD 08/13/2024 11:11 AM [facility] NRBC Absolute 0.00 <0.10 K/mcL LAB HEMETOLOGY METHOD 08/13/2024 11:11 AM [facility] Blood Venous blood specimen / Unknown Venipuncture / Unknown 08/13/2024 7:30 AM EST 08/13/2024 10:59 AM EST us Prince Le MD LAB BLOOD ORDERABLES Final [facility]ul t [facility] [address] [place] [address], [place] [phone] documented in this encounter Visit Diagnoses Diagnosis Type 2 diabetes mellitus without complications (CMS/HCC) documented in this encounter Care Teams Plastics Design Engineer Relationship Specialty Start Date End Date Tram Álvarez MD 2 [facility] , [address] [facility] Physician Associ D/B/A: [facility] [place] PCP - General Internal Medicine 03/30/18 documented as of this encounter
--- OUTSIDE RECORDS SUMMARY | 2024-09-09 14:15 | XMS_ITS | Encounter Summary ---
Author Organization [facility] Address [address] [place] [address] Care Team Providers Care Shingles Roofer Name Role Phone Tram Álvarez MD Primary Care Provider [phone] Encounter Details Date Type Department Care Team (Late st Contact Info) Description 08/26/2024 Lab Requisition [facility] - Main Lab [address] [facility] [place] [address] Prince Le MD 38 [facility] [address] [place], [address] Type 2 diabetes mellitus without complications [...] Procedure Name Priority Date/Time Associated Diagnosis Comments LIPID PANEL WITH REFLEX TO DIRECT LDL Routine 08/27/2024 6:34 AM EST Type 2 diabetes mellitus without complications (CMS/HCC) COMPLETE BLOOD COUNT Routine 08/27/2024 6:34 AM EST Type 2 diabetes mellitus without complications (CMS/HCC) C-REACTIVE PROTEIN Routine 08/27/2024 6: 34 AM EST Type 2 diabetes mellitus without complications (CMS/HCC) COMPREHENSIVE METABOLIC PANEL Routine 08/27/2024 6:34 AM EST Type 2 diabetes mellitus without complications (CMS/HCC) documented in this encounter Results * (ABNORMAL) Lipid panel with reflex to direct LDL (08/27/2024 6:34 AM EST) Cholesterol 96 0 - 200 mg/dL LAB CHEMISTRY METHOD 08/27/2024 9:27 AM [facility] Triglycerides 249(H) 0 - 150 mg/dL LAB CHEMISTRY METHOD 08/27/2024 9:27 AM [facility] HDL 30(L) >=40 mg/dL LAB CHEMISTRY METHOD 08/27/2024 9:27 AM [facility] LDL Calculated 16 0 - 100 mg/dL LAB CHEMISTRY METHOD 08/27/2024 9:27 AM [facility] VLDL Cholesterol Maikel 49.8 mg/dL LAB CHEMISTRY METHOD 08/27/2024 9:27 AM [facility] Non HDL Chol. (LDL+VLDL) 66 <145 mg/dL LAB CHEMISTRY METHOD 08/27/2024 9:27 AM [facility] Chol/HDL Ratio 3.2 0.0 - 4.4 LAB CHEMISTRY METHOD 08/27/2024 9:27 AM [facility] Blood Venous blood specimen / Unknown Venipuncture / Unknown 08/27/2024 6:34 AM EST 08/27/2024 8:52 AM EST us Prince Le MD LAB BLOOD ORDERABLES Final Resul t [facility] [address] [place] [address], * (ABNORMAL) C-reactive protein (08/27/2024 6:34 AM EST) C-Reactive Protein 1.47(H) <=0.50 mg/dL LAB CHEMISTRY METHOD 08/27/2024 9:27 AM [facility] Blood Venous blood specimen / Unknown Venipuncture / Unknown 08/27/2024 6:34 AM EST 08/27/2024 8:52 AM EST us Prince Le MD LAB BLOOD ORDERABLES Final Resul t [facility] [address] [place] [address], * (ABNORMAL) Comprehensive metabolic panel (08/27/2024 6:34 AM EST) Sodium 139 133 - 145 mmol/L LAB CHEMISTRY METHOD 08/27/2024 9:27 AM [facility] Potassium 4.6 3.5 - 5.5 mmol/L LAB CHEMISTRY METHOD 08/27/2024 9:27 AM [facility] Chloride 105 96 - 110 mmol/L LAB CHEMISTRY METHOD 08/27/2024 9:27 AM [facility] CO2 31 21 - 32 mmol/L LAB CHEMISTRY METHOD 08/27/2024 9:27 AM [facility] Anion Gap 3 3 - 11 LAB CHEMISTRY METHOD 08/27/2024 9:27 AM [facility] Glucose 112(H) 70 - 100 mg/dL LAB CHEMISTRY METHOD 08/27/2024 9:27 AM [facility] BUN 19 5 - 25 mg/dL LAB CHEMISTRY METHOD 08/27/2024 9:27 AM [facility] Creatinine 0.71 0.70 - 1.30 mg/dL LAB CHEMISTRY METHOD 08/27/2024 9:27 AM [facility] eGFR 100 >=60 mL/min/1. 73m2 LAB CHEMISTRY METHOD 08/27/2024 9:27 AM [facility] Comment:Calculation based on the??Chronic Kidney Disease Epidemiology Collaboration (CKD-EPI) equation refit??without adjustment for race. BUN/Creatinine Ratio 26.8 LAB CHEMISTRY METHOD 08/27/2024 9:27 AM [facility] Calcium 9.5 8.5 - 10.5 mg/dL LAB CHEMISTRY METHOD 08/27/2024 9:27 AM [facility] AST (SGOT) 19 10 - 42 unit/L LAB CHEMISTRY METHOD 08/27/2024 9:27 AM [facility] ALT (SGPT) 29 10 - 60 unit/L LAB CHEMISTRY METHOD 08/27/2024 9:27 AM [facility] Alkaline Phosphatase 53 42 - 121 unit/L LAB CHEMISTRY METHOD 08/27/2024 9:27 AM [facility] Total Protein 6.5 6.0 - 8.0 g/dL LAB CHEMISTRY METHOD 08/27/2024 9:27 AM [facility] Albumin 3.2 3.2 - 5.0 g/dL LAB CHEMISTRY METHOD 08/27/2024 9:27 AM [facility] Total Bilirubin 0.6 0.0 - 1.4 mg/dL LAB CHEMISTRY METHOD 08/27/2024 9:27 AM [facility] Blood Venous blood specimen / Unknown Venipuncture / Unknown 08/27/2024 6:34 AM EST 08/27/2024 8:52 AM EST us Prince Le MD LAB BLOOD ORDERABLES Final Resul t [facility] [address] [place] [address], * (ABNORMAL) Complete blood count (08/27/2024 6:34 AM EST) WBC 12.7(H) 4.8 - 10.8 K/mcL LAB HEMETOLOGY METHOD 08/27/2024 9:04 AM [facility] RBC 3.80(L) 4.50 - 5.50 M/mcL LAB HEMETOLOGY METHOD 08/27/2024 9:04 AM [facility] Hemoglobin 10.9(L) 13.5 - 17.5 g/dL LAB HEMETOLOGY METHOD 08/27/2024 9:04 AM [facility] Hematocrit 34.6(L) 42.0 - 54.0 % LAB HEMETOLOGY METHOD 08/27/2024 9:04 AM [facility] MCV 91.5 79.0 - 98.0 FL LAB HEMETOLOGY METHOD 08/27/2024 9:04 AM [facility] MCH 28.8 27.0 - 32.0 pcg LAB HEMETOLOGY METHOD 08/27/2024 9:04 AM [facility] MCHC 31.5(L) 32.0 - 37.0 g/dL LAB HEMETOLOGY METHOD 08/27/2024 9:04 AM [facility] RDW 20.3(H) 11.0 - 15.0 % LAB HEMETOLOGY METHOD 08/27/2024 9:04 AM [facility] Platelets 422(H) 130 - 400 K/mcL LAB HEMETOLOGY METHOD 08/27/2024 9:04 AM [facility] MPV 12.5(H) 7.0 - 11.0 FL LAB HEMETOLOGY METHOD 08/27/2024 9:04 AM [facility] NRBC 0.0 <1.0 % LAB HEMETOLOGY METHOD 08/27/2024 9:04 AM [facility] NRBC Absolute 0.00 <0.10 K/mcL LAB HEMETOLOGY METHOD 08/27/2024 9:04 AM [facility] Blood Venous blood specimen / Unknown Venipuncture / Unknown 08/27/2024 6:34 AM EST 08/27/2024 8:52 AM EST us Prince Le MD LAB BLOOD ORDERABLES Final Resul t [facility] [address] [place] [address], documented in this encounter Visit Diagnoses Diagnosis Type 2 diabetes mellitus without complications (CMS/HCC) documented in this encounter Care Teams Shingles Roofer Relationship Specialty Start Date End Date Tram Álvarez MD [address] [place] [address] , [address] [facility] Physician Associ D/B/A: [facility] [place] PCP - General Internal Medicine 03/30/18 documented as of this encounter
--- OUTSIDE RECORDS SUMMARY | 2024-09-09 14:15 | XMS_ITS | Encounter Summary ---
Author Organization Address [address] [place] [address] Care Team Providers Care Senior Project Accountant Name Role Phone Tram Álvarez MD Primary Care Provider [phone] Encounter Details Date Type Department Care Team (Late st Contact Info) Description 08/05/2024 Lab Requisition [facility] - Main Lab [address] [place] [address] Prince Le MD 38 [facility] [address] [place], [address] Type 2 diabetes mellitus without complications [...] mg/dL LAB CHEMISTRY METHOD 08/06/2024 9:31 AM [facility] Blood Venous blood specimen / Unknown Venipuncture / Unknown 08/06/2024 6:49 AM EST 08/06/2024 8:31 AM EST us Prince Le MD LAB BLOOD ORDERABLES Final Resul t [facility] [address] [place] [address], * Comprehensive metabolic panel (08/06/2024 6:49 AM EST) Sodium 140 133 - 145 mmol/L LAB CHEMISTRY METHOD 08/06/2024 9:31 AM [facility] Potassium 5.0 3.5 - 5.5 mmol/L LAB CHEMISTRY METHOD 08/06/2024 9:31 AM [facility] Chloride 106 96 - 110 mmol/L LAB CHEMISTRY METHOD 08/06/2024 9:31 AM [facility] CO2 30 21 - 32 mmol/L LAB CHEMISTRY METHOD 08/06/2024 9:31 AM [facility] Anion Gap 4 3 - 11 LAB CHEMISTRY METHOD 08/06/2024 9:31 AM [facility] Glucose 99 70 - 100 mg/dL LAB CHEMISTRY METHOD 08/06/2024 9:31 AM [facility] BUN 25 5 - 25 mg/dL LAB CHEMISTRY METHOD 08/06/2024 9:31 AM [facility] Creatinine 1.10 0.70 - 1.30 mg/dL LAB CHEMISTRY METHOD 08/06/2024 9:31 AM [facility] eGFR 73 >=60 mL/min/1. 73m2 LAB CHEMISTRY METHOD 08/06/2024 9:31 AM [facility] Comment:Calculation based on the??Chronic Kidney Disease Epidemiology Collaboration (CKD-EPI) equation refit??without adjustment for race. BUN/Creatinine Ratio 22.7 LAB CHEMISTRY METHOD 08/06/2024 9:31 AM [facility] Calcium 9.5 8.5 - 10.5 mg/dL LAB CHEMISTRY METHOD 08/06/2024 9:31 AM [facility] AST (SGOT) 33 10 - 42 unit/L LAB CHEMISTRY METHOD 08/06/2024 9:31 AM [facility] ALT (SGPT) 26 10 - 60 unit/L LAB CHEMISTRY METHOD 08/06/2024 9:31 AM [facility] Alkaline Phosphatase 51 42 - 121 unit/L LAB CHEMISTRY METHOD 08/06/2024 9:31 AM [facility] Total Protein 6.6 6.0 - 8.0 g/dL LAB CHEMISTRY METHOD 08/06/2024 9:31 AM [facility] Albumin 3.4 3.2 - 5.0 g/dL LAB CHEMISTRY METHOD 08/06/2024 9:31 AM [facility] Total Bilirubin 0.4 0.0 - 1.4 mg/dL LAB CHEMISTRY METHOD 08/06/2024 9:31 AM [facility] Blood Venous blood specimen / Unknown Venipuncture / Unknown 08/06/2024 6:49 AM EST 08/06/2024 8:31 AM EST us Prince Le MD LAB BLOOD ORDERABLES Final Resul t [facility] [address] [place] [address], * (ABNORMAL) Complete blood count (08/06/2024 6:49 AM EST) WBC 8.2 4.8 - 10.8 K/mcL LAB HEMETOLOGY METHOD 08/06/2024 9:12 AM [facility] RBC 4.50 4.50 - 5.50 M/mcL LAB HEMETOLOGY METHOD 08/06/2024 9:12 AM [facility] Hemoglobin 12.2(L) 13.5 - 17.5 g/dL LAB HEMETOLOGY METHOD 08/06/2024 9:12 AM [facility] Hematocrit 37.4(L) 42.0 - 54.0 % LAB HEMETOLOGY METHOD 08/06/2024 9:12 AM [facility] MCV 84.0 79.0 - 98.0 FL LAB HEMETOLOGY METHOD 08/06/2024 9:12 AM [facility] MCH 27.4 27.0 - 32.0 pcg LAB HEMETOLOGY METHOD 08/06/2024 9:12 AM [facility] MCHC 32.6 32.0 - 37.0 g/dL LAB HEMETOLOGY METHOD 08/06/2024 9:12 AM [facility] RDW 20.3(H) 11.0 - 15.0 % LAB HEMETOLOGY METHOD 08/06/2024 9:12 AM [facility] Platelets 351 130 - 400 K/mcL LAB HEMETOLOGY METHOD 08/06/2024 9:12 AM [facility] MPV 12.2(H) 7.0 - 11.0 FL LAB HEMETOLOGY METHOD 08/06/2024 9:12 AM [facility] NRBC 0.0 <1.0 % LAB HEMETOLOGY METHOD 08/06/2024 9:12 AM [facility] NRBC Absolute 0.00 <0.10 K/mcL LAB HEMETOLOGY METHOD 08/06/2024 9:12 AM [facility] Blood Venous blood specimen / Unknown Venipuncture / Unknown 08/06/2024 6:49 AM EST 08/06/2024 8:31 AM EST us Prince Le MD LAB BLOOD ORDERABLES Final [facility]ul t [facility] [address] [place] [address], documented in this encounter Visit Diagnoses Diagnosis Type 2 diabetes mellitus without complications (CMS/HCC) documented in this encounter Care Teams Senior Project Accountant Relationship Specialty Start Date End Date Tram Álvarez MD 2 [facility] , [address] [facility] Physician Associ D/B/A: [facility] [place] PCP - General Internal Medicine 03/30/18 documented as of this encounter
--- OUTSIDE RECORDS SUMMARY | 2024-09-09 14:16 | XMS_ITS | Encounter Summary ---
Author Organization [facility] Address [address] [place] [address] Care Team Providers Care Divisional Merchandising Manager Name Role Phone Tram Álvarez MD Primary Care Provider [phone] Encounter Details Date Type Department Care Team (Late st Contact Info) Description 05/21/2024 Lab Requisition [facility] - Main Lab [address] [place] [address] Prince Le MD 38 [facility] [address] [place], [address] Essential (primary) hypertension Social History Tobacco [...] LAB CHEMISTRY METHOD 05/24/2024 9:02 AM EST [facility] Potassium 4.2 3.5 - 5.5 mmol/L LAB CHEMISTRY METHOD 05/24/2024 9:02 AM EST [facility] Chloride 109 96 - 110 mmol/L LAB CHEMISTRY METHOD 05/24/2024 9:02 AM [facility] CO2 28 21 - 32 mmol/L LAB CHEMISTRY METHOD 05/24/2024 9:02 AM [facility] Anion Gap 5 3 - 11 LAB CHEMISTRY METHOD 05/24/2024 9:02 AM [facility] Glucose 129(H) 70 - 100 mg/dL LAB CHEMISTRY METHOD 05/24/2024 9:02 AM [facility] BUN 38(H) 5 - 25 mg/dL LAB CHEMISTRY METHOD 05/24/2024 9:02 AM [facility] Creatinine 1.33(H) 0.70 - 1.30 mg/dL LAB CHEMISTRY METHOD 05/24/2024 9:02 AM [facility] eGFR 58(L) >=60 mL/min/1. 73m2 LAB CHEMISTRY METHOD 05/24/2024 9:02 AM [facility] Comment:Calculation based on the??Chronic Kidney Disease Epidemiology Collaboration (CKD-EPI) equation refit??without adjustment for race. BUN/Creatinine Ratio 28.6 LAB CHEMISTRY METHOD 05/24/2024 9:02 AM [facility] Calcium 9.2 8.5 - 10.5 mg/dL LAB CHEMISTRY METHOD 05/24/2024 9:02 AM [facility] Blood Venous blood specimen / Unknown Venipuncture / Unknown 05/24/2024 6:00 AM EST 05/24/2024 7:45 AM EST us Prince Le MD LAB BLOOD ORDERABLES Final Resul t [facility] [address] [place] [address], * (ABNORMAL) Complete blood count (05/24/2024 6:00 AM EST) WBC 9.3 4.8 - 10.8 K/mcL LAB HEMETOLOGY METHOD 05/24/2024 9:03 AM [facility] RBC 4.90 4.50 - 5.50 M/[facility] LAB HEMETOLOGY METHOD 05/24/2024 9:03 AM [facility] Hemoglobin 13.6 13.5 - 17.5 g/dL LAB HEMETOLOGY METHOD 05/24/2024 9:03 AM [facility] Hematocrit 43.1 42.0 - 54.0 % LAB HEMETOLOGY METHOD 05/24/2024 9:03 AM [facility] MCV 87.4 79.0 - 98.0 FL LAB HEMETOLOGY METHOD 05/24/2024 9:03 AM [facility] MCH 27.6 27.0 - 32.0 pcg LAB HEMETOLOGY METHOD 05/24/2024 9:03 AM [facility] MCHC 31.6(L) 32.0 - 37.0 g/dL LAB HEMETOLOGY METHOD 05/24/2024 9:03 AM [facility] RDW 16.4(H) 11.0 - 15.0 % LAB HEMETOLOGY METHOD 05/24/2024 9:03 AM [facility] Platelets 249 130 - 400 K/[facility] LAB HEMETOLOGY METHOD 05/24/2024 9:03 AM [facility] MPV 13.1(H) 7.0 - 11.0 FL LAB HEMETOLOGY METHOD 05/24/2024 9:03 AM [facility] NRBC 0.0 <1.0 % LAB HEMETOLOGY METHOD 05/24/2024 9:03 AM [facility] NRBC Absolute 0.00 <0.10 K/[facility] LAB HEMETOLOGY METHOD 05/24/2024 9:03 AM [facility] Blood Venous blood specimen / Unknown Venipuncture / Unknown 05/24/2024 6:00 AM EST 05/24/2024 7:45 AM EST us Prince Le MD LAB BLOOD ORDERABLES Final Resul t [facility] [address] [place] [address], documented in this encounter Visit Diagnoses Diagnosis Essential (primary) hypertension Unspecified essential hypertension documented in this encounter Care Teams Divisional Merchandising Manager Relationship Specialty Start Date End Date Tram Álvarez MD 2 [facility] , [address] [place] [address] Physician Associ D/B/A: [facility] JAS Duque PCP - General Internal Medicine 03/30/18 documented as of this encounter
--- OUTSIDE RECORDS SUMMARY | 2024-09-09 14:16 | XMS_ITS | Encounter Summary ---
Author Organization [facility] Address [address] [place] [address] Care Team Providers Care Cloud Physicist Name Role Phone Tram Álvarez MD Primary Care Provider Encounter Details Date Type Department Care Team (Late st Contact Info) Description 07/22/[address] [facility] - Main Lab [address] [place] [address] Prince Le MD 38 [facility] [address] [place], [address] Type 2 diabetes mellitus without complications [...] mg/dL LAB CHEMISTRY METHOD 07/23/2024 10:47 AM [facility] Blood Venous blood specimen / Unknown Venipuncture / Unknown 07/23/2024 6:52 AM EST 07/23/2024 9:26 AM EST us Prince Le MD LAB BLOOD ORDERABLES Final Resul t [facility] [address] [place] [address], * (ABNORMAL) Comprehensive metabolic panel (07/23/2024 6:52 AM EST) Sodium 137 133 - 145 mmol/L LAB CHEMISTRY METHOD 07/23/2024 10:47 AM [facility] Potassium 5.3 3.5 - 5.5 mmol/L LAB CHEMISTRY METHOD 07/23/2024 10:47 AM [facility] Chloride 102 96 - 110 mmol/L LAB CHEMISTRY METHOD 07/23/2024 10:47 AM [facility] CO2 28 21 - 32 mmol/L LAB CHEMISTRY METHOD 07/23/2024 10:47 AM [facility] Anion Gap 7 3 - 11 LAB CHEMISTRY METHOD 07/23/2024 10:47 AM [facility] Glucose 78 70 - 100 mg/dL LAB CHEMISTRY METHOD 07/23/2024 10:47 AM [facility] BUN 39(H) 5 - 25 mg/dL LAB CHEMISTRY METHOD 07/23/2024 10:47 AM [facility] Creatinine 1.58(H) 0.70 - 1.30 mg/dL LAB CHEMISTRY METHOD 07/23/2024 10:47 AM [facility] eGFR 47(L) >=60 mL/min/1. 73m2 LAB CHEMISTRY METHOD 07/23/2024 10:47 AM [facility] Comment:Calculation based on the??Chronic Kidney Disease Epidemiology Collaboration (CKD-EPI) equation refit??without adjustment for race. BUN/Creatinine Ratio 24.7 LAB CHEMISTRY METHOD 07/23/2024 10:47 AM [facility] Calcium 9.5 8.5 - 10.5 mg/dL LAB CHEMISTRY METHOD 07/23/2024 10:47 AM [facility] AST (SGOT) 25 10 - 42 unit/L LAB CHEMISTRY METHOD 07/23/2024 10:47 AM [facility] ALT (SGPT) 26 10 - 60 unit/L LAB CHEMISTRY METHOD 07/23/2024 10:47 AM [facility] Alkaline Phosphatase 68 42 - 121 unit/L LAB CHEMISTRY METHOD 07/23/2024 10:47 AM [facility] Total Protein 6.9 6.0 - 8.0 g/dL LAB CHEMISTRY METHOD 07/23/2024 10:47 AM [facility] Albumin 3.5 3.2 - 5.0 g/dL LAB CHEMISTRY METHOD 07/23/2024 10:47 AM [facility] Total Bilirubin 0.4 0.0 - 1.4 mg/dL LAB CHEMISTRY METHOD 07/23/2024 10:47 AM [facility] Blood Venous blood specimen / Unknown Venipuncture / Unknown 07/23/2024 6:52 AM EST 07/23/2024 9:26 AM EST us Prince Le MD LAB BLOOD ORDERABLES Final Resul t [facility] [address] [place] [address], * (ABNORMAL) Complete blood count (07/23/2024 6:52 AM EST) WBC 9.2 4.8 - 10.8 K/mcL LAB HEMETOLOGY METHOD 07/23/2024 10:13 AM EST [facility] RBC 4.90 4.50 - 5.50 M/mcL LAB HEMETOLOGY METHOD 07/23/2024 10:13 AM [facility] Hemoglobin 13.6 13.5 - 17.5 g/dL LAB HEMETOLOGY METHOD 07/23/2024 10:13 AM [facility] Hematocrit 41.2(L) 42.0 - 54.0 % LAB HEMETOLOGY METHOD 07/23/2024 10:13 AM [facility] MCV 83.7 79.0 - 98.0 FL LAB HEMETOLOGY METHOD 07/23/2024 10:13 AM [facility] MCH 27.6 27.0 - 32.0 pcg LAB HEMETOLOGY METHOD 07/23/2024 10:13 AM [facility] MCHC 33.0 32.0 - 37.0 g/dL LAB HEMETOLOGY METHOD 07/23/2024 10:13 AM [facility] RDW 19.0(H) 11.0 - 15.0 % LAB HEMETOLOGY METHOD 07/23/2024 10:13 AM [facility] Platelets 364 130 - 400 K/mcL LAB HEMETOLOGY METHOD 07/23/2024 10:13 AM [facility] MPV 12.2(H) 7.0 - 11.0 FL LAB HEMETOLOGY METHOD 07/23/2024 10:13 AM [facility] NRBC 0.0 <1.0 % LAB HEMETOLOGY METHOD 07/23/2024 10:13 AM [facility] NRBC Absolute 0.00 <0.10 K/mcL LAB HEMETOLOGY METHOD 07/23/2024 10:13 AM [facility] Blood Venous blood specimen / Unknown Venipuncture / Unknown 07/23/2024 6:52 AM EST 07/23/2024 9:26 AM EST us Prince Le MD LAB BLOOD ORDERABLES Final Resul t [facility] [address] [place] [address], [place] [phone] documented in this encounter Visit Diagnoses Diagnosis Type 2 diabetes mellitus without complications (CMS/HCC) documented in this encounter Care Teams Cloud Physicist Relationship Specialty Start Date End Date Tram Álvarez MD 2 [facility] , [address] [facility] Physician Associ D/B/A: [facility] [place] MD PCP - General Internal Medicine 03/30/18 documented as of this encounter
--- OUTSIDE RECORDS SUMMARY | 2024-09-09 14:16 | XMS_ITS | Clinical Summary ---
Author Organization [facility] Address [address] [place] [address] Care Team Providers Care Cryptographic Vulnerability Analyst Name Role Phone Tram Royal MD Primary [...] age to complete this topic Care Teams Cryptographic Vulnerability Analyst Relationship Specialty Start Date End Date Tram Royal MD 2 [facility] , [address] [facility] Physician Associ D/B/A: [facility] [place] [address] PCP - General Internal Medicine 03/30/18
--- OUTSIDE RECORDS SUMMARY | 2024-09-09 14:16 | XMS_ITS | Encounter Summary ---
Author Organization [employer] Address [address] [facility] [address] [place] [address] Care Team Providers Care Home Energy Consultant Supervisor Name Role Phone Unavailable Primary Care Provider Unavailabl e Reason for Visit * Reason Onset Date Comments New patient appt. 04/29/2024 Encounter Details Date Type Department Care Team (Late st Contact Info) Description 04/29/2024 Telephone [facility] MEDICINE [address] [place] [address] Guy Calles MD [address] [place] [address] New patient appt. Social History Tobacco Use Types Packs/Day Years Used Date Smoking Tobacco: Never Assessed Sex and Gender Information Value Date Recorded Sex Assigned at Male 05/06/2022 10:29 AM EDT Legal Sex Male 10:29 AM EDT Gender Identity Not on file Sexual Orientation Not on file documented as of this encounter Miscellaneous Notes * Telephone Encounter - Aleta Cooper - 08/30/2024 2:21 PM EST Outgoing call to pt to book SERVICE CLERK appt. Patient booked for 11/15/[address] Moscoso. Medical conditions reported: Diabtes, Chronic kidney disease Appt reminder sent via text and mail. * Telephone Encounter - Aleta Cooper - 04/29/2024 9:59 AM EDT Patient added to [facility] New patient wait list as of 04/29/24. documented in this encounter Plan of Treatment Upcoming Encounters Date Type Department Care Team (Late st Contact Info) Description 11/15/2024 10:45 AM EDT Office Visit [facility] MEDICINE [address] [place], [place] [id number] Shannan Moscoso DO [address] [place] [address] documented as of this encounter Visit Diagnoses Not on filedocumented in this encounter
--- OUTSIDE RECORDS SUMMARY | 2024-09-09 14:16 | XMS_ITS | Encounter Summary ---
Author Organization [facility] Address [address] [place] [address] Care Team Providers Care Chlorinator Name Role Phone Tram Álvarez MD Primary Care Provider [phone] Encounter Details Date Type Department Care Team (Late st Contact Info) Description 09/09/2024 Lab Requisition [facility] - Main Lab [address] [facility] [place] [address] Prince Le MD 38 [facility] [address] [place], [address] Type 2 diabetes mellitus without complications (CMS/HCC) Social History Tobacco Use Types Packs/Day Years Used Date Smoking Tobacco: Never Assessed Sex and Gender Information Value Date Recorded Sex Assigned at Not on file Legal Sex Male 1:13 PM EST Gender Identity Not on file Sexual Orientation Not on file documented as of this encounter Plan of Treatment Scheduled Orders Name Type Priority Associated Diagnoses Orde r Schedule Complete blood count Lab Routine Type 2 diabetes mellitus without complications (CMS/HCC) Ordered: 09/09/2024 Comprehensive metabolic panel Lab Routine Type 2 diabetes mellitus without complications (CMS/HCC) Ordered: 09/09/2024 C-reactive protein Lab Routine Type 2 diabetes mellitus without complications (CMS/HCC) Ordered: 09/09/2024 documented as of this encounter Visit Diagnoses Diagnosis Type 2 diabetes mellitus without complications (CMS/HCC) documented in this encounter Care Teams Chlorinator Relationship Specialty Start Date End Date Tram Álvarez MD [address] [place] [address] , [address] Physician Associ D/B/A: [facility] [place], [place] PCP - General Internal Medicine 03/30/18 documented as of this encounter
--- OUTSIDE RECORDS SUMMARY | 2024-09-09 14:16 | XMS_ITS | Encounter Summary ---
Author Organization [facility] Address [address] [place] [address] Care Team Providers Care Pool Player Name Role Phone Tram Álvarez MD Primary Care Provider [phone] Encounter Details Date Type Department Care Team (Late st Contact Info) Description 07/29/[address] [facility] - Main Lab [address] [place] [address] Prince Le MD 38 [facility] [address] [place], [address] Type 2 diabetes mellitus without complications [...] mg/dL LAB CHEMISTRY METHOD 07/30/2024 10:25 AM [facility] Blood Venous blood specimen / Unknown Venipuncture / Unknown 07/30/2024 7:30 AM EST 07/30/2024 9:39 AM EST us Prince Le MD LAB BLOOD ORDERABLES Final Resul t [facility] [address] [place] [address], [place] [phone] * (ABNORMAL) Comprehensive metabolic panel (07/30/2024 7:30 AM EST) Sodium 140 133 - 145 mmol/L LAB CHEMISTRY METHOD 07/30/2024 10:25 AM [facility] Potassium 5.1 3.5 - 5.5 mmol/L LAB CHEMISTRY METHOD 07/30/2024 10:25 AM [facility] Chloride 107 96 - 110 mmol/L LAB CHEMISTRY METHOD 07/30/2024 10:25 AM [facility] CO2 31 21 - 32 mmol/L LAB CHEMISTRY METHOD 07/30/2024 10:25 AM [facility] Anion Gap 2(L) 3 - 11 LAB CHEMISTRY METHOD 07/30/2024 10:25 AM [facility] Glucose 76 70 - 100 mg/dL LAB CHEMISTRY METHOD 07/30/2024 10:25 AM [facility] BUN 28(H) 5 - 25 mg/dL LAB CHEMISTRY METHOD 07/30/2024 10:25 AM [facility] Creatinine 1.13 0.70 - 1.30 mg/dL LAB CHEMISTRY METHOD 07/30/2024 10:25 AM [facility] eGFR 71 >=60 mL/min/1. 73m2 LAB CHEMISTRY METHOD 07/30/2024 10:25 AM [facility] Comment:Calculation based on the??Chronic Kidney Disease Epidemiology Collaboration (CKD-EPI) equation refit??without adjustment for race. BUN/Creatinine Ratio 24.8 LAB CHEMISTRY METHOD 07/30/2024 10:25 AM [facility] Calcium 9.5 8.5 - 10.5 mg/dL LAB CHEMISTRY METHOD 07/30/2024 10:25 AM [facility] AST (SGOT) 28 10 - 42 unit/L LAB CHEMISTRY METHOD 07/30/2024 10:25 AM [facility] ALT (SGPT) 24 10 - 60 unit/L LAB CHEMISTRY METHOD 07/30/2024 10:25 AM [facility] Alkaline Phosphatase 62 42 - 121 unit/L LAB CHEMISTRY METHOD 07/30/2024 10:25 AM [facility] Total Protein 6.4 6.0 - 8.0 g/dL LAB CHEMISTRY METHOD 07/30/2024 10:25 AM [facility] Albumin 3.2 3.2 - 5.0 g/dL LAB CHEMISTRY METHOD 07/30/2024 10:25 AM [facility] Total Bilirubin 0.4 0.0 - 1.4 mg/dL LAB CHEMISTRY METHOD 07/30/2024 10:25 AM [facility] Blood Venous blood specimen / Unknown Venipuncture / Unknown 07/30/2024 7:30 AM EST 07/30/2024 9:39 AM EST us Prince Le MD LAB BLOOD ORDERABLES Final Resul t [facility] [address] [place] [address], * (ABNORMAL) Complete blood count (07/30/2024 7:30 AM EST) WBC 8.9 4.8 - 10.8 K/mcL LAB HEMETOLOGY METHOD 07/30/2024 9:55 AM EST [facility] RBC 4.30(L) 4.50 - 5.50 M/mcL LAB HEMETOLOGY METHOD 07/30/2024 9:55 AM [facility] Hemoglobin 12.1(L) 13.5 - 17.5 g/dL LAB HEMETOLOGY METHOD 07/30/2024 9:55 AM [facility] Hematocrit 36.5(L) 42.0 - 54.0 % LAB HEMETOLOGY METHOD 07/30/2024 9:55 AM [facility] MCV 84.3 79.0 - 98.0 FL LAB HEMETOLOGY METHOD 07/30/2024 9:55 AM [facility] MCH 27.9 27.0 - 32.0 pcg LAB HEMETOLOGY METHOD 07/30/2024 9:55 AM [facility] MCHC 33.2 32.0 - 37.0 g/dL LAB HEMETOLOGY METHOD 07/30/2024 9:55 AM [facility] RDW 19.4(H) 11.0 - 15.0 % LAB HEMETOLOGY METHOD 07/30/2024 9:55 AM [facility] Platelets 315 130 - 400 K/mcL LAB HEMETOLOGY METHOD 07/30/2024 9:55 AM [facility] MPV 12.7(H) 7.0 - 11.0 FL LAB HEMETOLOGY METHOD 07/30/2024 9:55 AM [facility] NRBC 0.0 <1.0 % LAB HEMETOLOGY METHOD 07/30/2024 9:55 AM [facility] NRBC Absolute 0.00 <0.10 K/mcL LAB HEMETOLOGY METHOD 07/30/2024 9:55 AM [facility] Blood Venous blood specimen / Unknown Venipuncture / Unknown 07/30/2024 7:30 AM EST 07/30/2024 9:39 AM EST us Prince Le MD LAB BLOOD ORDERABLES Final Resul t [email or web address] [address] [place] [address], documented in this encounter Visit Diagnoses Diagnosis Type 2 diabetes mellitus without complications (CMS/HCC) documented in this encounter Care Teams Pool Player Relationship Specialty Start Date End Date Tram Álvarez MD 2 [facility] , [address] [place] [address] Physician Associ D/B/A: [facility] [place], [place] PCP - General Internal Medicine 03/30/18 documented as of this encounter
--- OUTSIDE RECORDS SUMMARY | 2024-09-09 14:16 | XMS_ITS | Clinical Summary ---
Author Organization [employer] Address [address] [facility] [address] [place] [address] Care Team Providers Care Director Retail Brand Development Name Role Phone Unavailable Primary Care Provider Unavailabl e Social History Tobacco Use Types Packs/Day Years Used Date Smoking Tobacco: Never Assessed Sex and Gender Information Value Date Recorded Sex Assigned at Male 05/06/2022 10:29 AM EDT Legal Sex Male 10:29 AM EDT Gender Identity Not on file Sexual Orientation Not on file Plan of Treatment Upcoming Encounters Date Type Department Care Team ([facility] st Contact Info) Description 11/15/2024 10:45 AM EDT Office Visit [facility] MEDICINE [address] [place] [address] Shannan Moscoso DO [address] [place] [address] Health Maintenance Due Date Last Done Comments CT Colonography 1955 Colonoscopy 1955 Colorectal Cancer Screening 1955 Depression Screening 1955 FIT DNA/Cologuard 1955 FIT 1955 FOBT 1955 Lipid Panel 1955 SDOH Screening 1955 Sigmoidoscopy 1955 Alcohol/Substance Use Screening 1967 Tobacco Screening 1967 Hepatitis C Screening 10/04/1973 Zoster Vaccines (1 of 2) 10/04/2005 Pneumococcal Vaccine: 50+ Years (2 of 2 - PCV) 05/12/2019 05/12/2018, 07/09/2010 DTaP/Tdap/Td Vaccines (2 - Td or Tdap) 08/31/2020 08/31/2010 COVID-19 Vaccine ( - season) 2024 04/10/2023, 09/11/2020, 08/21/2020 RSV Patients and Patients Aged 60 years or older (1 - 1-dose 75+ series) 10/04/2030 Influenza Vaccine Completed 04/15/2024, , 05/08/2022, Additional [...] on patient's age to complete this topic Insurance [facility]
--- OUTSIDE RECORDS SUMMARY | 2024-09-09 14:16 | XMS_ITS | Clinical Summary ---
Author Organization [facility] Address [address] [place] [address] Phone Care Team Providers Care Cryptographic Clerk Name Role Phone Tram Álvarez MD Primary Care Provider Encounters Date Type Department Care Team Description 09/09/2024 Lab Requisition [facility] Lab [address] [place] [phone] Prince Le MD Type 2 diabetes mellitus without complications ([facility]/HCC) 09/02/2024 Lab Requisition [facility] Lab [address] [place] [phone] Prince Le MD Type 2 diabetes mellitus without complications ([facility]/HCC) 08/26/2024 Lab Requisition [facility] Lab [address] [place] [address] Prince Le MD Type 2 diabetes mellitus without complications ([facility]/HCC) 08/19/2024 Lab Requisition [facility] Lab [address] [place] [address] Prince Le MD Type 2 diabetes mellitus without complications (CMS/HCC) 08/12/2024 Lab Requisition [facility] Main Lab [address] [place] [address] Prince Le MD Type 2 diabetes mellitus without complications (CMS/HCC) 08/05/2024 Lab Requisition [facility] Main Lab [address] [place] [address] Prince Le MD Type 2 diabetes mellitus without complications (CMS/HCC) 07/29/[address] [facility] - Main Lab [address] [place] [phone] Prince Le MD Type 2 diabetes mellitus without complications ([facility]/HCC) 07/22/2024 Lab Requisition [facility] Main Lab [address] [place] [phone] Prince Le MD Type 2 diabetes mellitus without complications ([facility]/HCC) 07/16/2024 Lab Requisition [facility] Main Lab [address] [place] [phone] Prince Le MD Type 2 diabetes mellitus without complications ([facility]) 06/18/2024 Lab Requisition [facility] Lab [address] [place] [phone] Prince Le MD Nausea with vomiting, unspecified; Chronic kidney disease, unspecified from Last 3 Months Social History Tobacco [...] 08/31/2010 Abdominal Aortic Aneurysm (AAA) Screen 06/04/2022 Colorectal Cancer Screening: Colonoscopy 06/04/2022 Depression Screening 06/04/2022 Falls Risk Assessment 06/04/2022 Hepatitis C Screening 06/04/2022 Medicare Annual Wellness Visit 06/04/2022 Social Influencers of Health Screening 06/04/2022 COVID-19 Vaccine ( season) 2024 04/10/2023, 09/11/2020, 08/21/2020 Diabetes: Annual Urine Albumin-Creatinine Ratio (uACR) 05/08/2024 Diabetes: Blood Sugar Control Test (HGBA1C) 05/08/2024 Diabetes: Annual GFR (Glomerular Filtration Rate) 09/03/2025 09/03/2024, 08/27/2024, 08/20/2024, Additional history exists Hypertension/CHF/CAD Annual BMP Blood Test 09/03/2025 09/03/2024, 08/27/2024, 08/20/2024, Additional history exists Cholesterol Screening (Lipid Panel) 08/27/2029 08/27/2024 Influenza Vaccine Completed 04/15/2024, , 05/08/2022, Additional [...] Date/Time Associated Diagnosis Comments C-REACTIVE PROTEIN Routine 09/03/2024 6: 35 AM EST Type 2 diabetes mellitus without complications (CMS/HCC) COMPREHENSIVE METABOLIC PANEL Routine 09/03/2024 6:35 AM EST Type 2 diabetes mellitus without complications (CMS/HCC) COMPLETE BLOOD COUNT Routine 09/03/2024 6:35 AM EST Type 2 diabetes mellitus without complications (CMS/HCC) LIPID PANEL WITH REFLEX TO DIRECT LDL Routine 08/27/2024 6:34 AM EST Type 2 diabetes mellitus without complications (CMS/HCC) C-REACTIVE PROTEIN Routine 08/27/2024 6 :34 AM EST Type 2 diabetes mellitus without [...] with vomiting, unspecified Chronic kidney disease, unspecified from Last 3 Months Results * (ABNORMAL) Complete blood count (09/03/2024 6:35 AM EST) Only the most recent of9 resultswithin the time period is included. WBC 9.2 4.8 - 10.8 K/mcL LAB HEMETOLOGY METHOD 09/03/2024 8:43 AM [facility] RBC 3.70(L) 4.50 - 5.50 M/mcL LAB HEMETOLOGY METHOD 09/03/2024 8:43 AM [facility] Hemoglobin 10.8(L) 13.5 - 17.5 g/dL LAB HEMETOLOGY METHOD 09/03/2024 8:43 AM [facility] Hematocrit 34.4(L) 42.0 - 54.0 % LAB HEMETOLOGY METHOD 09/03/2024 8:43 AM [facility] MCV 93.5 79.0 - 98.0 FL LAB HEMETOLOGY METHOD 09/03/2024 8:43 AM [facility] MCH 29.3 27.0 - 32.0 pcg LAB HEMETOLOGY METHOD 09/03/2024 8:43 AM [facility] MCHC 31.4(L) 32.0 - 37.0 g/dL LAB HEMETOLOGY METHOD 09/03/2024 8:43 AM [facility] RDW 20.0(H) 11.0 - 15.0 % LAB HEMETOLOGY METHOD 09/03/2024 8:43 AM [facility] Platelets 333 130 - 400 K/mcL LAB HEMETOLOGY METHOD 09/03/2024 8:43 AM [facility] MPV 12.3(H) 7.0 - 11.0 FL LAB HEMETOLOGY METHOD 09/03/2024 8:43 AM [facility] NRBC 0.0 <1.0 % LAB HEMETOLOGY METHOD 09/03/2024 8:43 AM [facility] NRBC Absolute 0.00 <0.10 K/mcL LAB HEMETOLOGY METHOD 09/03/2024 8:43 AM [facility] Blood Venous blood specimen / Unknown Venipuncture / Unknown 09/03/2024 6:35 AM EST 09/03/2024 7:52 AM EST us Prince Le MD LAB BLOOD ORDERABLES Final Resul t Performing Organization Address City/[facility]/ZIP Co de Phone Number [facility] [address] [place] [address], [place] [phone] * (ABNORMAL) C-reactive protein (09/03/2024 6:35 AM EST) Only the most recent of8 resultswithin the time period is included. [facility] C-Reactive Protein 0.57(H) <=0.50 mg/dL LAB CHEMISTRY METHOD 09/03/2024 10:05 AM [facility] Blood Venous blood specimen / Unknown Venipuncture / Unknown 09/03/2024 6:35 AM EST 09/03/2024 7:52 AM EST us Prince Le MD LAB BLOOD ORDERABLES Final Resul t Performing Organization Address [facility]/ZIP Co de Phone Number [facility] [address] [place] [address], [place] [phone] * (ABNORMAL) Comprehensive metabolic panel (09/03/2024 6:35 AM EST) Only the most recent of8 resultswithin the time period is included. [facility] Sodium 138 133 - 145 mmol/L LAB CHEMISTRY METHOD 09/03/2024 9:59 AM [facility] Potassium 4.2 3.5 - 5.5 mmol/L LAB CHEMISTRY METHOD 09/03/2024 9:59 AM [facility] Chloride 105 96 - 110 mmol/L LAB CHEMISTRY METHOD 09/03/2024 9:59 AM [facility] CO2 28 21 - 32 mmol/L LAB CHEMISTRY METHOD 09/03/2024 9:59 AM [facility] Anion Gap 5 3 - 11 LAB CHEMISTRY METHOD 09/03/2024 9:59 AM [facility] Glucose 120(H) 70 - 100 mg/dL LAB CHEMISTRY METHOD 09/03/2024 9:59 AM [facility] BUN 23 5 - 25 mg/dL LAB CHEMISTRY METHOD 09/03/2024 9:59 AM [facility] Creatinine 0.88 0.70 - 1.30 mg/dL LAB CHEMISTRY METHOD 09/03/2024 9:59 AM [facility] eGFR 94 >=60 mL/min/1. 73m2 LAB CHEMISTRY METHOD 09/03/2024 9:59 AM [facility] Comment:Calculation based on the??Chronic Kidney Disease Epidemiology Collaboration (CKD-EPI) equation refit??without adjustment for race. BUN/Creatinine Ratio 26.1 LAB CHEMISTRY METHOD 09/03/2024 9:59 AM [facility] Calcium 9.1 8.5 - 10.5 mg/dL LAB CHEMISTRY METHOD 09/03/2024 9:59 AM [facility] AST (SGOT) 23 10 - 42 unit/L LAB CHEMISTRY METHOD 09/03/2024 9:59 AM [facility] ALT (SGPT) 29 10 - 60 unit/L LAB CHEMISTRY METHOD 09/03/2024 9:59 AM [facility] Alkaline Phosphatase 59 42 - 121 unit/L LAB CHEMISTRY METHOD 09/03/2024 9:59 AM [facility] Total Protein 5.9(L) 6.0 - 8.0 g/dL LAB CHEMISTRY METHOD 09/03/2024 9:59 AM [facility] Albumin 3.1(L) 3.2 - 5.0 g/dL LAB CHEMISTRY METHOD 09/03/2024 9:59 AM [facility] Total Bilirubin 0.4 0.0 - 1.4 mg/dL LAB CHEMISTRY METHOD 09/03/2024 9:59 AM [facility] Blood Venous blood specimen / Unknown Venipuncture / Unknown 09/03/2024 6:35 AM EST 09/03/2024 7:52 AM EST Prince Le MD LAB BLOOD ORDERABLES Final Resul t [facility] [address] [place] [address], [place] [phone] * (ABNORMAL) Lipid panel with reflex to direct LDL (08/27/2024 6:34 AM EST) Cholesterol 96 0 - 200 mg/dL LAB CHEMISTRY METHOD 08/27/2024 9:27 AM [facility] Triglycerides 249(H) 0 - 150 mg/dL LAB CHEMISTRY METHOD 08/27/2024 9:27 AM [facility] HDL 30(L) >=40 mg/dL LAB CHEMISTRY METHOD 08/27/2024 9:27 AM [facility] LDL Calculated 16 0 - 100 mg/dL LAB CHEMISTRY METHOD 08/27/2024 9:27 AM [facility] VLDL Cholesterol Maikel 49.8 mg/dL LAB CHEMISTRY METHOD 08/27/2024 9:27 AM [facility] Non HDL Chol. (LDL+VLDL) 66 <145 mg/dL LAB CHEMISTRY METHOD 08/27/2024 9:27 AM [facility] Chol/HDL Ratio 3.2 0.0 - 4.4 LAB CHEMISTRY METHOD 08/27/2024 9:27 AM [facility] Blood Venous blood specimen / Unknown Venipuncture / Unknown 08/27/2024 6:34 AM EST 08/27/2024 8:52 AM EST Prince Le MD LAB BLOOD ORDERABLES Final Resul t [facility] [address] [place] [address], [place] [phone] * (ABNORMAL) Basic metabolic panel (06/18/2024 6:44 [...] LAB BLOOD ORDERABLES Final Resul t [facility] [address] [facility] [place] [address], [place] [phone] from Last 3 Months Insurance [facility] MEDICARE Member Subscriber Plan / Payer (Ef fective 2023-Present) Name:Carlos Cabrera Relation to Subscriber:Self Name:Carlos Cabrera Payer ID:[id number] Group ID:[id number] Type:Not on file Address: [place] [address] [address] [id number] Care Teams Cryptographic Clerk Relationship Specialty Start Date End Date Tram Álvarez MD 2 [facility] , [address] [facility] Physician Associ D/B/A: [facility] [place] PCP - General Internal Medicine 03/30/18
--- OUTSIDE RECORDS SUMMARY | 2024-09-09 14:16 | XMS_ITS | Encounter Summary ---
Author Organization [facility] Address [address] [place] [address] Care Team Providers Care Dredgemaster Name Role Phone Tram Álvarez MD Primary Care Provider [phone] Encounter Details Date Type Department Care Team (Late st Contact Info) Description 05/28/2024 Lab Requisition [facility] - Main Lab [address] [place] [address] Prince Le MD 38 [facility] [address] [place], [address] Essential (primary) hypertension Social History Tobacco [...] LAB CHEMISTRY METHOD 05/31/2024 11:37 AM EST [facility] Potassium 4.5 3.5 - 5.5 mmol/L LAB CHEMISTRY METHOD 05/31/2024 11:37 AM EST [facility] Chloride 108 96 - 110 mmol/L LAB CHEMISTRY METHOD 05/31/2024 11:[address] [facility] CO2 28 21 - 32 mmol/L LAB CHEMISTRY METHOD 05/31/2024 11:[address] [facility] Anion Gap 6 3 - 11 LAB CHEMISTRY METHOD 05/31/2024 11:[address] [facility] Glucose 104(H) 70 - 100 mg/dL LAB CHEMISTRY METHOD 05/31/2024 11:[address] [facility] BUN 25 5 - 25 mg/dL LAB CHEMISTRY METHOD 05/31/2024 11:[address] [facility] Creatinine 1.15 0.70 - 1.30 mg/dL LAB CHEMISTRY METHOD 05/31/2024 11:[address] [facility] eGFR 69 >=60 mL/min/1. 73m2 LAB CHEMISTRY METHOD 05/31/2024 11:[address] [facility] Comment:Calculation based on the??Chronic Kidney Disease Epidemiology Collaboration (CKD-EPI) equation refit??without adjustment for race. BUN/Creatinine Ratio 21.7 LAB CHEMISTRY METHOD 05/31/2024 11:[address] [facility] Calcium 9.2 8.5 - 10.5 mg/dL LAB CHEMISTRY METHOD 05/31/2024 11:[address] [facility] Blood Venous blood specimen / Unknown Venipuncture / Unknown 05/31/2024 7:20 AM EST 05/31/2024 10:13 AM EST us Prince Le MD LAB BLOOD ORDERABLES Final Resul t [facility] [address] [place] [address], * (ABNORMAL) Complete blood count (05/31/2024 7:20 AM EST) WBC 8.8 4.8 - 10.8 K/mcL LAB HEMETOLOGY METHOD 05/31/2024 10:[address] [facility] RBC 5.10 4.50 - 5.50 M/mcL LAB HEMETOLOGY METHOD 05/31/2024 10:[address] [facility] Hemoglobin 14.2 13.5 - 17.5 g/dL LAB HEMETOLOGY METHOD 05/31/2024 10:[address] [facility] Hematocrit 44.7 42.0 - 54.0 % LAB HEMETOLOGY METHOD 05/31/2024 10:[address] [facility] MCV 87.0 79.0 - 98.0 FL LAB HEMETOLOGY METHOD 05/31/2024 10:[address] [facility] MCH 27.6 27.0 - 32.0 pcg LAB HEMETOLOGY METHOD 05/31/2024 10:[address] [facility] MCHC 31.8(L) 32.0 - 37.0 g/dL LAB HEMETOLOGY METHOD 05/31/2024 10:[address] [facility] RDW 16.5(H) 11.0 - 15.0 % LAB HEMETOLOGY METHOD 05/31/2024 10:[address] [facility] Platelets 242 130 - 400 K/mcL LAB HEMETOLOGY METHOD 05/31/2024 10:[address] [facility] MPV 12.5(H) 7.0 - 11.0 FL LAB HEMETOLOGY METHOD 05/31/2024 10:[address] [facility] NRBC 0.0 <1.0 % LAB HEMETOLOGY METHOD 05/31/2024 10:[address] [facility] NRBC Absolute 0.00 <0.10 K/mcL LAB HEMETOLOGY METHOD 05/31/2024 10:[address] [facility] Blood Venous blood specimen / Unknown Venipuncture / Unknown 05/31/2024 7:20 AM EST 05/31/2024 10:16 AM EST us Prince Le MD LAB BLOOD ORDERABLES Final Resul t [facility] [address] [place] [address], [place] [phone] documented in this encounter Visit Diagnoses Diagnosis Essential (primary) hypertension Unspecified essential hypertension documented in this encounter Care Teams Dredgemaster Relationship Specialty Start Date End Date Tram Álvarez MD 2 [facility] , [address] [facility] Physician Associ D/B/A: [facility] [place] PCP - General Internal Medicine 03/30/18 documented as of this encounter
== END 2024-09-09 11:50 | disposition home or self-care (01) ==
PROVIDERS: PCP Internal Medicine; Visit Provider Physician Assistant
DX: Z98.890 Other specified postprocedural states (principal)
CPT/HCPCS: 99024

== ENCOUNTER → 2024-09-09 11:35 | Outpatient (BNVA) | payer OTHER, SELFPAY | PROVIDERS: PCP Internal Medicine; Visit Provider Physician Assistant | DX: Z47.89 Encounter for other orthopedic aftercare (principal); Z98.890 Other specified postprocedural states | CPT/HCPCS: 99212 ==

== ENCOUNTER 2024-10-07 14:05 | Inpatient (IN) | payer OTHER, SELFPAY ==
[2024-10-07] VITALS (18 sets, daily range): BP systolic 77–157; BP diastolic 40–85; PULSE 84–118; RESP 10–16; TEMP 35.2–37.6; O2SAT 95–100; BMI 27.5; BMI 28.1; BMI 28.6
--- NOTE | ~2024-10-07 | CT_ITS ---
EXAMINATION: CT ABDOMEN PELVIS WITH IV CONTRAST HISTORY: SBO vs ileus, ? choledocholithiasis COMPARISON: Comparison is made with the prior examination dated 10/07/2024. TECHNIQUE: CT scan of the abdomen and pelvis was performed following administration of 85 mL Omnipaque 350 using standard departmental protocol. Coronal and sagittal reformatted images were generated and reviewed. Oral contrast material was not administered at the request of the referring physician. This CT exam was performed with one or more of the following dose reduction techniques: automated exposure control, adjustment of the mA and/or kV according to patient size, use of iterative reconstruction technique. DLP: 1060 mGy-cm FINDINGS: LOWER CHEST: There is new patchy airspace opacity in the right middle lobe, likely representing pneumonia. There are new moderate bilateral pleural effusions with adjacent compressive atelectasis. CARDIOVASCULATURE: The heart is normal in size. There is no pericardial effusion. LIVER: The liver is normal in size and contour. No liver mass is identified. The hepatic and portal veins are patent. GALLBLADDER / BILE DUCTS: The gallbladder is surgically absent. There is no intra or extrahepatic biliary ductal dilatation. SPLEEN: The spleen is normal in size. No focal splenic lesion is identified. PANCREAS: The pancreas is unremarkable in appearance. ADRENAL GLANDS: Within normal limits. KIDNEYS/RETROPERITONEUM: No renal calculi are identified. There is no hydronephrosis. No renal masses are identified. LYMPH NODES: No abdominal or pelvic lymphadenopathy. VASCULATURE: The abdominal aorta is normal in caliber. MESENTERY/PERITONEUM: No free fluid. No masses. There is no free intraperitoneal gas. STOMACH: The stomach is unremarkable. SMALL BOWEL: The small bowel is normal in caliber. COLON: There is a moderate to large amount of stool throughout the colon. APPENDIX: Normal. URINARY BLADDER/PELVIC ORGANS: The urinary bladder is collapsed with a Monroy catheter. The prostate is normal in size. BONES / SOFT TISSUES: There is degenerative disc disease of the spine. CT/CT abdomen pelvis w IV con IMPRESSION: 1. Right middle lobe pneumonia. 2. New moderate bilateral pleural effusions with adjacent compressive atelectasis. 3. Moderate to large amount of stool throughout the colon. No evidence of bowel obstruction. 4. The common bile duct is normal in caliber. Electronically signed by: Jorge Huynh MD 10/11/2024 10:15 AM EDT RP
--- NOTE | ~2024-10-07 | CT_ITS ---
EXAMINATION: CT CHEST WITHOUT IV CONTRAST INDICATION: hypoxia, ?pneumonia COMPARISON: Correlation is made with AP portable views of the chest dated 10/07/2024. TECHNIQUE: Helical CT scan of the chest was performed without intravenous contrast. Coronal and sagittal reformatted images were generated and reviewed. This CT exam was performed with one or more of the following dose reduction techniques: automated exposure control, adjustment of the mA and/or kV according to patient size, use of iterative reconstruction technique. DLP: 78 mGy-cm CHEST: THYROID: The thyroid is unremarkable. LUNGS: There are thickened interlobular septae at the apices of both lungs. There are groundglass and airspace opacities in both lungs. Findings are suggestive of pulmonary edema. There is compressive atelectasis at both lung bases. MEDIASTINUM: There is no mediastinal lymphadenopathy. CORONA: Evaluation of the hilar regions is limited by lack of intravenous contrast material. CARDIOVASCULATURE: The heart is normal in size. There is no pericardial effusion. The thoracic aorta is normal in caliber. DEGREE OF CORONARY CALCIFICATION: none PLEURA: There are moderate bilateral pleural effusions. No pneumothorax. MAIN AIRWAYS: The mainstem bronchi and proximal branches are patent. AXILLA: There is no axillary lymphadenopathy. BONES AND SOFT TISSUES: Unremarkable UPPER ABDOMEN: The visualized portions of the liver, spleen, and adrenals have an unremarkable unenhanced appearance. CT/CT chest wo IV con IMPRESSION: Findings consistent with pulmonary edema and moderate bilateral pleural effusions. Electronically signed by: Jorge Huynh MD 10/11/2024 10:24 AM EDT
--- NOTE | ~2024-10-07 | XR_ITS ---
EXAMINATION: XR CHEST CLINICAL INFORMATION: weakness, sepsis COMPARISON: May 02, 2024 TECHNIQUE: Frontal view of the chest was obtained. FINDINGS: No consolidation, pleural effusion or pneumothorax. Subsegmental atelectasis, right middle lung lobe and lingula. Low lung volume/poor inspiration. Cardiomediastinal silhouette size is normal. Multilevel thoracic spondylosis. XR/XR chest 1V IMPRESSION: No acute airspace disease. Electronically signed by: Seth Briggs MD 10/07/2024 02:57 PM EDT
--- NOTE | ~2024-10-07 | CT_ITS ---
EXAMINATION: CT HEAD WITHOUT CONTRAST CLINICAL INFORMATION: ? Right periauricular abscess. COMPARISON: 11/07/2020. TECHNIQUE: Contiguous axial imaging was performed from the skull base to vertex without intravenous administration of contrast. This CT examination was performed using dose optimization techniques as appropriate, variously including the following: *Automated exposure control *Adjustment of mA and/or kV according to patient size (this includes techniques or standardized protocols for targeted exams where dose is matched to indication/reason for exam; i.e. extremities or head) *Use of iterative reconstruction technique FINDINGS: There is no evidence of intracranial hemorrhage or extra-axial fluid collection. There is no mass effect, or edema. No CT evidence of acute territorial infarct. Ventricles, sulci, and cisterns are normal in size and configuration for patient age. No hydrocephalus. No midline shift. Negative hyperdense MCA sign. Negative insular ribbon sign. Patchy periventricular and deep white matter hypoattenuation is consistent with mild to moderate small vessel ischemic changes. Normal pituitary. Globes and orbital contents image normally. There are bilateral lens replacements. A cranial soft tissues demonstrate fatty change of the parotid glands. There is no evidence of significant inflammation or abnormal fluid collection surrounding the right ear. There is cerumen impaction in both EACs. The paranasal sinuses, mastoid air cells, and tympanic cavities are normally aerated. No suspicious bony abnormalities. There are no acute fractures evident. CT/CT head/brain wo IV con IMPRESSION: 1. No acute intracranial abnormality. 2. No evidence of right periauricular abscess. 3. Cerumen impaction in both EACs. Electronically signed by: Michael Ramires MD 10/12/2024 12:05 PM EDT
--- NOTE | ~2024-10-07 | CT_ITS ---
EXAMINATION: CT ABDOMEN PELVIS WITHOUT IV CONTRAST HISTORY: new onset DAVINA, hypotension, WBC count sepsis COMPARISON: Comparison is made with the prior examination dated 09/18/2023. TECHNIQUE: CT scan of the abdomen and pelvis was performed without contrast using standard departmental protocol. Coronal and sagittal reformatted images were generated and reviewed. Oral contrast material was not administered at the request of the referring physician. This CT exam was performed with one or more of the following dose reduction techniques: automated exposure control, adjustment of the mA and/or kV according to patient size, use of iterative reconstruction technique. DLP: 842 mGy-cm FINDINGS: LOWER CHEST: The visualized lung bases are clear. There is no pleural effusion. CARDIOVASCULATURE: The heart is normal in size. There is no pericardial effusion. LIVER: The liver is normal in size and contour. The liver has an unremarkable unenhanced appearance. GALLBLADDER / BILE DUCTS: The gallbladder is surgically absent. There is no intra or extrahepatic biliary ductal dilatation. SPLEEN: The spleen is normal in size and has an unremarkable unenhanced appearance. PANCREAS: The pancreas has an unremarkable unenhanced appearance. ADRENAL GLANDS: Unremarkable. KIDNEYS/RETROPERITONEUM: No renal calculi are identified. There is no hydronephrosis. LYMPH NODES: No retroperitoneal lymphadenopathy is identified in the abdomen or pelvis. VASCULATURE: The abdominal aorta demonstrates atherosclerotic calcification, but is normal in caliber. MESENTERY/PERITONEUM: No free fluid. No masses. There is no free intraperitoneal gas. STOMACH: The stomach is markedly distended with fluid and debris. SMALL BOWEL: The small bowel is normal in caliber. COLON: There is a moderate to large amount of stool throughout the colon. A rectal catheter is seen. APPENDIX: Normal. URINARY BLADDER/PELVIC ORGANS: The urinary bladder is distended. The prostate is normal in size. BONES / SOFT TISSUES: There is degenerative disc disease of the spine. CT/CT abdomen pelvis wo IV con IMPRESSION: 1. Markedly distended stomach with fluid and debris. 2. Moderate to large amount of stool throughout the colon. 3. Distended urinary bladder. Electronically signed by: Jorge Huynh MD 10/07/2024 03:43 PM EDT
--- NOTE | ~2024-10-07 | CT_ITS ---
CLINICAL HISTORY: ? source of infection CT soft tissue neck with contrast Comparison: CT/SR - CT CERVICAL SPINE W IV CON - 08/21/24 12:21 EST Findings: The visualized intracranial contents are unremarkable. No prevertebral fluid. Epiglottis is within normal limits. Pharyngeal mucosal space and parapharyngeal fat are normal. Salivary glands are within normal limits. No sialoliths. Thyroid gland is unremarkable. Pleural effusions are noted extending to the lung apices bilaterally. Apical ground-glass opacities are present bilaterally. No acute fractures. Postsurgical changes are noted at C4-C5 and C5-C6 IMPRESSION: Pleural effusions with ground-glass opacities in bilateral lung apices. Otherwise unremarkable CT of the neck soft tissues. This document has been electronically signed by: Rusty Mcfadden MD, PHD on 10/14/2024 01:52:10
--- NOTE | 2024-10-07 14:18 | ECG_ITS ---
Test Reason : SEPSIS Blood Pressure : */* mmHG Vent. Rate : 83 BPM Atrial Rate : 83 BPM P-R Int : 156 ms QRS Dur : 106 ms QT Int : 362 ms P-R-T Axes : * -22 -57 degrees QTcB Int : 425 ms Normal sinus rhythm Low voltage QRS Possible Lateral infarct , age undetermined Inferior infarct , age undetermined Abnormal ECG When compared with ECG of 02-May-2024 10:28, QRS voltage has decreased Nonspecific T wave abnormality now evident in Inferior leads Nonspecific T wave abnormality, worse in Lateral leads Referred By: Anna Johnston Electronically Signed By:
[2024-10-07 14:22] LABS: Glucose, Whole Blood 100 mg/dL (60-115)
[2024-10-07 14:40] LABS: Basophils Absolute Auto 0.1 X10*3/uL (0.0-0.2); Basophils Percent Auto 0.4 % (0-2); Eosinophils Absolute Auto 0.4 X10*3/uL (0.0-0.4); Eosinophils Percent Auto 2.9 % (0-4); Hematocrit 35.3 % (42.0-52.0); Hemoglobin 11.9 g/dl (14.0-18.0); Imm Gran Abs Auto 0.09 X10*3/uL (0.00-0.03); Imm Gran Pct Auto 0.7 % (0.0-0.4); Lymphocytes Absolute Auto 1.5 X10*3/uL (1.2-4.9); Lymphocytes Percent Auto 11.9 % (20-40); MANUAL DIFF FLAG SCAN; Mean Corpuscular HGB Conc 33.7 g/dl (31.0-36.0); Mean Corpuscular Hemoglobin 30.5 pg (27.0-33.0); Mean Corpuscular Volume 90.5 fL (80.0-98.0); Monocytes Absolute Auto 0.5 X10*3/uL (0.1-1.2); Monocytes Percent Auto 4.2 % (2-11); Neutrophils Absolute Auto 10.4 x10*3/uL (2.0-8.3); Neutrophils Percent Auto 79.9 % (45-73); PLT CLUMP 1; Red Cell Distribution Width 16.8 % (11.0-16.0); SCAN SMEAR FLAG 1
--- NOTE | 2024-10-07 14:40 | ED.WEAKNESS ---
HPI - Weakness General Chief complaint: Recheck/Abnormal Lab/Rx Stated complaint: ABN LABS FROM SNF PER EMS Time Seen by Provider: 10/07/24 14:10 Source: patient, EMS and old records reviewed Mode of arrival: EMS Limitations: no limitations History of Present Illness ED Provider: TONEY KINNEY Narrative: 69 yo male with PMH of DM2, dCHF, neuropathy, spinal stenosis, fall risk, CKD, HTN, HLD, ESBL + E. Coli in urine, FULL CODE, reportedly had labs done this AM for hypotension - WBC count 17, Cr was 2.44 with baseline around 1 - 1.2 he himself has no complaints. He states no pain, n/v/d,, no fevers, no GIB symptoms, no dysuria. He has had a cough. He has no abdominal pain or chest pain. He arrived with EMS - BPs 70s/40s and mentating. He states he had a normal day yesterday and felt fine. He is not on chronic steroids. MD Complaint: generalized weakness Onset (ago): day(s) (1) Duration: constant Location: generalized Migration: none Severity: moderate Relieving factors: none Exacerbating factors: none Context: other Associated symptoms: other (+ cough) Related Data Home Medications ?Medication ?Instructions ?Recorded ?Confirmed latanoprost 0.005 % eye drops 1 drp ophthalmic (eye) BEDTIME 11/07/20 10/07/24 insulin aspart U-100 100 unit/mL 1 sliding scale dose subcut TIDAC 09/18/23 10/07/24 (3 mL) subcutaneous pen aspirin 81 mg tablet,delayed 81 mg PO DAILY@0800 05/02/24 10/07/24 release atorvastatin 20 mg tablet 20 mg PO DAILY@199905/02/24 10/07/24 cyclobenzaprine 10 mg tablet 10 mg PO BID muscle spasm 05/02/24 10/07/24 fenofibrate nanocrystallized 145 145 mg PO DAILY@0800 05/02/24 10/07/24 mg tablet hydralazine 25 mg tablet 25 mg PO TID@0800,1299,199905/02/24 10/07/24 metformin 500 mg tablet,extended 1,000 mg PO BID@0800,199905/02/24 10/07/24 release 24 hr sitagliptin phosphate 25 mg tablet 25 mg PO DAILY@0800 05/02/24 10/07/24 (Januvia) lidocaine 5 % topical patch 1 patch topical DAILY 05/19/24 10/07/24 acetaminophen 325 mg capsule 650 mg PO Q4H PRN Pain 08/18/24 10/07/24 bisacodyl 10 mg rectal suppository 10 mg NE DAILY PRN Constipation 08/18/24 10/07/24 calcium carbonate 1,000 mg PO Q4H PRN Heartburn 08/18/24 10/07/24 gabapentin 100 mg capsule 200 mg PO BID 08/18/24 10/07/24 magnesium hydroxide 400 mg/5 mL 30 ml PO DAILY PRN Constipation 08/18/24 10/07/24 oral suspension naloxone 4 mg/actuation nasal 4 mg intranasal Q3M PRN Opioid 08/18/24 10/07/24 spray (Narcan) Overdose sennosides 8.6 mg capsule (senna) 17.2 mg PO BEDTIME PRN Constipation 08/18/24 10/07/24 acetaminophen 500 mg tablet 1,000 mg PO TID 10/07/24 10/07/24 benazepril 40 mg tablet 40 mg PO DAILY@199910/07/24 10/07/24 furosemide 20 mg tablet (Lasix) 20 mg PO DAILY 10/07/24 10/07/24 hydralazine 25 mg tablet 25 mg PO Q8H PRN BP > 140 systolic 10/07/24 10/07/24 sodium phosphates 19 gram-7 118 ml NE DAILY PRN Constipation 10/07/24 10/07/24 gram/118 mL enema (Fleet Enema) Previous Rx's ?Medication ?Instructions ?Recorded walker #1 ea 01/12/21 blood pressure monitor #1 ea 05/08/22 chair lift #1 ea 09/11/22 walker (Ultra-Light Rollator misc) #1 ea 03/14/23 leg activities manager #1 ea 04/22/23 sock aid #1 ea 04/22/23 flash glucose scanning reader #1 ea 04/25/23 (FreeStyle Tirso 14 Day [place]) Shower Chair #1 ea 05/13/23 Brace,wrist #1 ea 06/02/23 flash glucose sensor (FreeStyle #2 ea 09/13/23 Tirso 2 Sensor kit) pen needle, diabetic 31 gauge x #200 ea 01/30/2411/19 adult diapers pull-ups #240 ea 04/15/24 bed rail #1 ea 04/15/24 commode (bedside commode) #1 ea 04/15/24 wipes #400 ea 04/15/24 compr.stocking,knee,long,x-lrg #12 ea 04/21/24 hospital bed #1 ea 04/22/24 oxycodone 10 mg tablet 10 mg PO Q6H PRN pain 30 days #120 04/23/24 tabs polyethylene glycol 3350 17 gram 17 g PO DAILY PRN Constipation #1 05/06/24 oral powder packet ea cholecalciferol (vitamin D3) 50 50 mcg PO DAILY #90 tabs 06/14/24 mcg (2,000 unit) tablet wheelchair electric #1 ea 06/17/24 Allergies Allergy/AdvReac Type Severity Reaction Status Date / Time Penicillins [PENICILLINS] Allergy Severe RASH Verified 10/07/24 14:14 jay pepper Allergy Intermediate Rash Verified 10/07/24 14:14 pepper (genus Capsicum) AdvReac Intermediate rashes Verified 10/07/24 14:14 Review of Systems Review of Systems: Constitutional : No Fever, No Chills, No Fatigue ENT/Mouth : No sore throat, No Rhinorrhea Eyes: No Eye Pain, No Swelling, No Redness Cardiovascular : No Chest Pain, No SOB, No Dyspnea on Exertion Respiratory : pos Cough, No Sputum Gastrointestinal : No Nausea, No Vomiting, No Diarrhea, No abdominal Pain Genitourinary : No Dysuria, No Urinary Frequency, No Hematuria, Musculoskeletal : No joint pain, No Myalgias, No Joint Swelling Skin : No Skin Lesions, No rash Neuro : pos Weakness, No Numbness, No Dizziness, no Headache Psych : No Anxiety/Panic, No Depression Heme/Lymph: No Bruising, No Bleeding,No Lymphadenopathy Endocrine : No Polyuria, No Polydipsia All other systems reviewed and are negative PMFSH Past Medical History Attestation statement: The following information was validated with the patient. Source: old records reviewed Medical History GERD (gastroesophageal reflux disease) Acute cholecystitis due to biliary calculus Numbness and tingling in right hand Numbness and tingling in left hand Essential hypertension Diabetes mellitus Knee osteoarthritis Mild recurrent major depression Mixed hyperlipidemia Right shoulder pain Right knee pain Left knee pain CKD (chronic kidney disease), stage III Low back pain Multiple falls Syncope DAVINA (acute kidney injury) Obesity due to excess calories Lumbar spondylosis Proteinuria Arthritis Hypertriglyceridemia Hypertension Diabetic polyneuropathy associated with type 2 diabetes mellitus Type 2 diabetes mellitus with other diabetic kidney complication Lumbar stenosis Surgical History History of cholecystectomy (09/19/23) History of surgery on lower extremity History of total left knee replacement (TKR) S/P evacuation of hematoma Hx of cataract surgery History of lumbar surgery Hx of eye surgery History of back surgery Family History Family History Father Medical history unknown Mother Hypertension Maternal Grandmother Medical history unknown Social History Social History Household Members: None Household Members Other:: self Housing: Apartment Housing Other:: currently at [facility] Are you a primary disabilities caregiver to a significant other at home: No Do you presently have visiting nurse or other home 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) Alcohol intake: former Comment: Narciso lift Patient Tobacco Use Status: Former Tobacco user Tobacco use type: Cigarette Years Smoked: 25 Smoked in Last 30 Days: No e-Cigarette/Vaping Use: Never Used Second Hand Smoke Exposure: No Use of substances other than those prescribed or required for medical reasons: No Advance Directives: Yes Advance Directives on File: Yes Advance Directives Date on File: 05/12/23 Nutrition Risks: No Nutritional Risk service: Yes Current occupational status: disabled Cognitive needs: Yes (walker) Hearing needs: No Vision needs: Yes (reading glasses) Physical Exam Vital Signs: Vital Signs: Last Vital Signs Temp 96.8 F 10/07/24 19:13 Pulse 111 H 10/07/24 19:16 Resp 16 10/07/24 19:13 BP 150/80 H 10/07/24 19:16 Pulse Ox 97 10/07/24 19:13 O2 Del Method Room Air 10/07/24 19:13 BMI result Body Mass Index 28.1 Appearance: Alert. Oriented X3. Mild acute distress. Eyes: Pupils equal, round and reactive to light. ENT: Pharynx dry MM Neck: Normal inspection. Neck supple. CVS: Normal heart rate and rhythm. Pulses normal. Respiratory: No respiratory distress. Breath sounds bases diminished but no wheezes noted Abdomen: Soft and nontender. slight distention : no obvious infection noted on exam Skin: Skin cool and dry. pale skin color. Normal skin turgor. Extremities: No lower extremity edema. overall all limbs are somewhat diffusely weak Neuro: Oriented X 3. No motor deficit. No sensory deficit. CN2-12 intact Course Course Course Narrative: currently responding to fluids pressure slowly started to trend down 6pm, pressors started, will admit to ICU warming blanket present focused exam for sepsis performed at 530pm Medications Administered Generic Name Dose Route Start Last Admin Trade Name Freq PRN Reason Stop Dose Admin Lactated Ringer's 1,000 mls @ 80 mls/hr 10/07/24 18:00 10/07/24 17:59 Lr IVCONT 80 mls/hr .[id number] IMTIAZ Administration Norepinephrine Bitartrate 8 mg in 250 mls @ 0 mls/hr 10/07/24 19:00 10/07/24 19:16 Levophed IVCONT 0.03 mcg/kg/min .Q0M IMTIAZ 4.71 mls/hr Titration Protocol Per Protocol Discontinued Medications Generic Name Dose Route Start Last Admin Trade Name Freq PRN Reason Stop Dose Admin Lactated Ringer's 2,604 mls @ 2,604 mls/hr 10/07/24 14:18 10/07/24 16:08 Lr 30 ml/kg infuse over 1 hr (2604 ml) 10/07/24 15:17 Infused IV Infusion .Q1H ONE Calcium Gluconate 2 gm in 100 mls @ 50 mls/hr 10/07/24 15:54 10/07/24 17:50 Calcium Gluconate IV 10/07/24 17:53 Infused ONCE ONE Infusion Norepinephrine Bitartrate 8 mg in 250 mls @ 0 mls/hr 10/07/24 18:15 10/07/24 18:16 Levophed IVCONT 0.05 mcg/kg/min .Q0M IMTIAZ 8.14 mls/hr Administration Protocol Per Protocol Meropenem 1 gm 10/07/24 14:18 10/07/24 14:45 Meropenem 1 Gm Vial IVPUSH 10/07/24 14:19 1 gm ONCE ONE Administration Medical Decision Making Medical Decision Making [facility] Narrative: 69 yo male with PMH of DM2, dCHF, neuropathy, spinal stenosis, fall risk, CKD, HTN, HLD, ESBL + E. Coli in urine, FULL CODE here with recent elevated Cr and WBC count and peristent hypotension. Given the presentation concern for infection vs cardiogenic origin - I have ordered IVF 30cc/kg bolus he does not appear volume overloaded on exam, empiric meropenem given prior ESBL + urine, CT scan for obstructive infected uropathy. He he does not respond to fluids will start on pressors. He is not on chronic steroids stress dose steroids held. Differential Diagnosis Differential Diagnoses: The differential diagnosis associated with the presentation includes sepsis, cardiogenic shock, dehydration, obstructive uropathy, anemia, low prob for myxedema coma lower prob for VTE but possible Admission/Observation Consideration of admission/observation: Escalation of care including admission/observation considered given drop in BP plan to admit to ICU on pressors Consult Healthcare Provider Dr. Mcduffie aware and will accept the patient Lab Data [facility] Lab Attestation statement: I reviewed the patient's lab results. 10/07/24 14:32 10/07/24 16:05 Labs: Lab Results 10/07/24 10/07/24 10/07/24 Range/Units 14:20 14:29 14:32 WBC 13.0 H (4.8-10.8) X10*3/uL RBC 3.90 L (4.60-5.80) X10*6/uL Hgb 11.9 L (14.0-18.0) g/dl Hct 35.3 L (42.0-52.0) % MCV 90.5 (80.0-98.0) fL MCH 30.5 (27.0-33.0) pg MCHC 33.7 (31.0-36.0) g/dl RDW 16.8 H (11.0-16.0) % Plt Count 236 (160-400) X10*3/uL MPV 11.8 (9.4-12.4) fL Immature Gran % (Auto) 0.7 H (0.0-0.4) % Neut % (Auto) 79.9 H (45-73) % Lymph % (Auto) 11.9 L (20-40) % [place] % (Auto) 4.2 (2-11) % Eos % (Auto) 2.9 (0-4) % Baso % (Auto) 0.4 (0-2) % Lymph # (Auto) 1.5 (1.2-4.9) X10*3/uL [place] # (Auto) 0.5 (0.1-1.2) X10*3/uL Eos # (Auto) 0.4 (0.0-0.4) X10*3/uL Baso # (Auto) 0.1 (0.0-0.2) X10*3/uL Abs Immat Gran (auto) 0.09 H (0.00-0.03) X10*3/uL Absolute Neuts (auto) 10.4 H (2.0-8.3) x10*3/uL Absolute Nucleated RBC 0.000 (0.0-0.012) X10*3/uL Nucleated RBC % (auto) 0.0 (0.0-0.2) /100WBC Smear Tech's Comments VERIFIED Sodium 134 L (135-145) mmol/L Potassium 6.4 H* D (3.3-5.1) mmol/L Chloride 99 (96-108) mmol/L Carbon Dioxide 21 L (22-29) mmol/L Anion Gap 20 (12-20) BUN 56 H (9-16) mg/dL Creatinine 2.51 H (0.5-1.4) mg/dL Estim Creat Clear Calc 28.6 Estimated GFR 26 POC Glucose 100 (60-115) mg/dL Random Glucose 98 (60-115) mg/dL Lactic Acid 4.6 H* (0.5-2.0) mmol/L Lactic Acid F/U @ 2Hr (0.5-2.0) mmol/L Calcium 9.0 (8.4-10.2) mg/dL Magnesium 2.0 (1.6-2.6) mg/dL Total Bilirubin 0.4 (0.0-1.0) mg/dL Direct Bilirubin 0.1 (0.0-0.5) mg/dL AST 53 H (5-37) U/L ALT 15 (0-40) U/L Alkaline Phosphatase 40 (39-117) U/L Total Creatine Kinase 62 (38-174) U/L Troponin I High Sens < 2.7 (<3.5-35.0) ng/L C-Reactive Protein 10.88 H (< or = 0.50) mg/dL B-Natriuretic Peptide < 10 (<100) pg/mL Total Protein 7.2 (6.5-8.0) g/dL Albumin 3.5 (3.5-5.0) g/dL Lipase 23 (8-78) U/L Procalcitonin 0.22 ng/mL TSH 1.37 (0.32-4.0) uIU/mL Urine Color Urine Appearance Urine pH (5.0-9.0) Ur Specific [place] (1.005-1.025) Urine Protein (Neg-Trace) mg/dL Urine Glucose (UA) (Negative) mg/dL Urine Ketones (Negative) mg/dL Urine Blood (Negative) Urine Nitrite (Negative) Ur Leukocyte Esterase (Negative) Influenza Type A (PCR) (Negative) Influenza Type B (PCR) (Negative) RSV RNA Qual (PCR) (Negative) SARS-CoV-2 RNA (RT-PCR) (Negative) 10/07/24 10/07/24 10/07/24 Range/Units 15:40 16:05 16:56 WBC (4.8-10.8) X10*3/uL RBC (4.60-5.80) X10*6/uL Hgb (14.0-18.0) g/dl Hct (42.0-52.0) % MCV (80.0-98.0) fL MCH (27.0-33.0) pg MCHC (31.0-36.0) g/dl RDW (11.0-16.0) % Plt Count (160-400) X10*3/uL MPV (9.4-12.4) fL Immature Gran % (Auto) (0.0-0.4) % Neut % (Auto) (45-73) % Lymph % (Auto) (20-40) % [place] % (Auto) (2-11) % Eos % (Auto) (0-4) % Baso % (Auto) (0-2) % Lymph # (Auto) (1.2-4.9) X10*3/uL [place] # (Auto) (0.1-1.2) X10*3/uL Eos # (Auto) (0.0-0.4) X10*3/uL Baso # (Auto) (0.0-0.2) X10*3/uL Abs Immat Gran (auto) (0.00-0.03) X10*3/uL Absolute Neuts (auto) (2.0-8.3) x10*3/uL Absolute Nucleated RBC (0.0-0.012) X10*3/uL Nucleated RBC % (auto) (0.0-0.2) /100WBC Smear Tech's Comments Sodium (135-145) mmol/L Potassium 3.8 D (3.3-5.1) mmol/L Chloride (96-108) mmol/L Carbon Dioxide (22-29) mmol/L Anion Gap (12-20) BUN (9-16) mg/dL Creatinine (0.5-1.4) mg/dL Estim Creat Clear Calc Estimated GFR POC Glucose (60-115) mg/dL Random Glucose (60-115) mg/dL Lactic Acid (0.5-2.0) mmol/L Lactic Acid F/U @ 2Hr (0.5-2.0) mmol/L Calcium (8.4-10.2) mg/dL Magnesium (1.6-2.6) mg/dL Total Bilirubin (0.0-1.0) mg/dL Direct Bilirubin (0.0-0.5) mg/dL AST (5-37) U/L ALT (0-40) U/L Alkaline Phosphatase (39-117) U/L Total Creatine Kinase (38-174) U/L Troponin I High Sens (<3.5-35.0) ng/L C-Reactive Protein (< or = 0.50) mg/dL B-Natriuretic Peptide (<100) pg/mL Total Protein (6.5-8.0) g/dL Albumin (3.5-5.0) g/dL Lipase (8-78) U/L Procalcitonin ng/mL TSH (0.32-4.0) uIU/mL Urine Color Dark Yellow Urine Appearance Clear Urine pH 5.5 (5.0-9.0) Ur Specific [place] 1.020 (1.005-1.025) Urine Protein Trace (Neg-Trace) mg/dL Urine Glucose (UA) Negative (Negative) mg/dL Urine Ketones Negative (Negative) mg/dL Urine Blood Negative (Negative) Urine Nitrite Negative (Negative) Ur Leukocyte Esterase Negative (Negative) Influenza Type A (PCR) NEGATIVE (Negative) Influenza Type B (PCR) NEGATIVE (Negative) RSV RNA Qual (PCR) NEGATIVE (Negative) SARS-CoV-2 RNA (RT-PCR) NEGATIVE (Negative) 10/07/24 Range/Units 16:57 WBC (4.8-10.8) X10*3/uL RBC (4.60-5.80) X10*6/uL Hgb (14.0-18.0) g/dl Hct (42.0-52.0) % MCV (80.0-98.0) fL MCH (27.0-33.0) pg MCHC (31.0-36.0) g/dl RDW (11.0-16.0) % Plt Count (160-400) X10*3/uL MPV (9.4-12.4) fL Immature Gran % (Auto) (0.0-0.4) % Neut % (Auto) (45-73) % Lymph % (Auto) (20-40) % [place] % (Auto) (2-11) % Eos % (Auto) (0-4) % Baso % (Auto) (0-2) % Lymph # (Auto) (1.2-4.9) X10*3/uL [place] # (Auto) (0.1-1.2) X10*3/uL Eos # (Auto) (0.0-0.4) X10*3/uL Baso # (Auto) (0.0-0.2) X10*3/uL Abs Immat Gran (auto) (0.00-0.03) X10*3/uL Absolute Neuts (auto) (2.0-8.3) x10*3/uL Absolute Nucleated RBC (0.0-0.012) X10*3/uL Nucleated RBC % (auto) (0.0-0.2) /100WBC Smear Tech's Comments Sodium (135-145) mmol/L Potassium (3.3-5.1) mmol/L Chloride (96-108) mmol/L Carbon Dioxide (22-29) mmol/L Anion Gap (12-20) BUN (9-16) mg/dL Creatinine (0.5-1.4) mg/dL Estim Creat Clear Calc Estimated GFR POC Glucose (60-115) mg/dL Random Glucose (60-115) mg/dL Lactic Acid (0.5-2.0) mmol/L Lactic Acid F/U @ 2Hr 3.6 H* (0.5-2.0) mmol/L Calcium (8.4-10.2) mg/dL Magnesium (1.6-2.6) mg/dL Total Bilirubin (0.0-1.0) mg/dL Direct Bilirubin (0.0-0.5) mg/dL AST (5-37) U/L ALT (0-40) U/L Alkaline Phosphatase (39-117) U/L Total Creatine Kinase (38-174) U/L Troponin I High Sens (<3.5-35.0) ng/L C-Reactive Protein (< or = 0.50) mg/dL B-Natriuretic Peptide (<100) pg/mL Total Protein (6.5-8.0) g/dL Albumin (3.5-5.0) g/dL Lipase (8-78) U/L Procalcitonin ng/mL TSH (0.32-4.0) uIU/mL Urine Color Urine Appearance Urine pH (5.0-9.0) Ur Specific [place] (1.005-1.025) Urine Protein (Neg-Trace) mg/dL Urine Glucose (UA) (Negative) mg/dL Urine Ketones (Negative) mg/dL Urine Blood (Negative) Urine Nitrite (Negative) Ur Leukocyte Esterase (Negative) Influenza Type A (PCR) (Negative) Influenza Type B (PCR) (Negative) RSV RNA Qual (PCR) (Negative) SARS-CoV-2 RNA (RT-PCR) (Negative) Independent Interpretation I performed an independent interpretation of an: EKG, Plain X-Ray and CT Scan Interpretation: Rate: 83 Rhythm: NSR [place]: normal Normal P waves. Normal SHELBI. decreased QRS complex. ST T wave : flat t waves but no CATIE qTC: 425 prior studies: voltage has changed The study has been interpreted contemporaneously by me. . Radiology Impression Discussion of test interpretation with radiology: I have reviewed the radiologist's reading. Independent Historian Clinical information obtained from an independent historian. History obtained from or confirmed by: EMS External Record Review External record reviewed: Inpatient record and Outpatient record Procedures Procedure Narrative Procedure Narrative: limited bedside ECHO apical and parasternal could not tolerate subxiphoid - at this time trace pericardial effusion noted Critical Care Time Critical Care Time Critical Care Time: Yes Total Critical Care Time: 60 Attestation: Time is exclusive of separately billable procedures. Time includes: direct patient care, patient reassessment, coordination of patient care, interpretation of data (laboratory data, pulse oximetry, arterial blood gases and chest xrays), review of patient's medical records, sepsis protocol, documentation of patient care. Procedures excluded from critical care time: central intravenous line placement and electrocardiography. Discharge Plan Discharge Clinical Impression: DAVINA (acute kidney injury), Acute hypotension, CRP elevated Hypothermia Qualifiers: Encounter type: initial encounter Qualified Code(s): T68.XXXA - Hypothermia, initial encounter Patient Disposition: Admitted As Inpatient
[2024-10-07] MEDS: Meropenem 1 GM VIAL IVPUSH (14:45)
[2024-10-07 14:59] LABS: Lactic Acid 4.6 mmol/L (0.5-2.0)
[2024-10-07 15:00] LABS: Mean Platelet Volume 11.8 fL (9.4-12.4); Platelet Count 236 X10*3/uL (160-400)
[2024-10-07 15:01] LABS: B Type Natriuretic Peptide < 10 pg/mL (<100)
[2024-10-07 15:01] LABS: SLIDE REVIEW VERIFIED
[2024-10-07 15:04] LABS: Troponin-I High Sensitivity < 2.7 ng/L (<3.5-35.0)
--- NOTE | 2024-10-07 15:07 | ECG_ITS ---
Test Reason : RYTHYM CHANGE Blood Pressure : */* mmHG Vent. Rate : 87 BPM Atrial Rate : 87 BPM P-R Int : 166 ms QRS Dur : 98 ms QT Int : 364 ms P-R-T Axes : 36 15 18 degrees QTcB Int : 438 ms Normal sinus rhythm Low voltage QRS Borderline ECG When compared to the previous EKG of may 02 2024, decrease in QRS voltage. Referred By: Anna Johnston Electronically Signed By: RITA LO
[2024-10-07 15:14] LABS: TSH reflex Free T4 1.37 uIU/mL (0.32-4.0)
[2024-10-07 15:17] LABS: Procalcitonin 0.22 ng/mL
[2024-10-07 15:50] LABS: Appearance Urine Clear; Color Urine Dark Yellow; Glucose Urine UA Negative (Negative); Leukocyte Esterase Urine Negative (Negative); Nitrite Urine Negative (Negative); PH 5.5 (5.0-9.0); Urine Blood Negative (Negative); Urine Ketones Negative (Negative); Urine Protein Trace mg/dL (Neg-Trace)
[2024-10-07 15:55] LABS: Alanine Aminotransferase 15 U/L (0-40); Albumin Level 3.5 g/dL (3.5-5.0); Anion Gap 20 (12-20); Aspartate Amino Transferase 53 U/L (5-37); Bilirubin Direct 0.1 mg/dL (0.0-0.5); Bilirubin Total 0.4 mg/dL (0.0-1.0); Blood Urea Nitrogen 56 mg/dL (9-16); C Reactive Protein 10.88 mg/dL (< or = 0.50); Carbon Dioxide 21 mmol/L (22-29); Chloride 99 mmol/L (96-108); Creatinine Clr Calc Pharmacy 28.6; Estimated Glomerular Filt Rate 26; Glucose Random 98 mg/dL (60-115); Lipase 23 U/L (8-78); Potassium 6.4 mmol/L (3.3-5.1); Sodium 134 mmol/L (135-145); Total Protein 7.2 g/dL (6.5-8.0)
[2024-10-07] MEDS: Calcium Gluconate/NaCl,Iso-Osm 2 GM/100 ML PLAST..BAG IV (15:56)
[2024-10-07 16:11] LABS: Alkaline Phosphatase 40 U/L (39-117)
[2024-10-07 16:21] LABS: Potassium 3.8 mmol/L (3.3-5.1)
[2024-10-07 16:35] LABS: Reflex Lactate? Lactic Acid Added
[2024-10-07 17:24] LABS: ~Lactic Acid-LAB USE ONLY 3.6 mmol/L (0.5-2.0)
[2024-10-07 17:40] LABS: Influenza A PCR NEGATIVE (Negative); Influenza B PCR NEGATIVE (Negative); Resp Syncy Virus RNA Qual PCR NEGATIVE (Negative); SARS COV2 PCR INHOUSE NEGATIVE (Negative)
[2024-10-07] MEDS: Lactated Ringers 1,000 ML 80 ML IVCONT (17:59)
[2024-10-07] MEDS: Norepinephrine Bitartrate/D5W 8 MG/250 ML PLAST..BAG 8.14 MG IVCONT (18:16)
[2024-10-07 19:00] LABS: Reflex Lactate? 2 Y
[2024-10-07] MEDS: Norepinephrine Bitartrate/D5W 8 MG/250 ML PLAST..BAG 7.86 MG IVCONT (19:03)
--- NOTE | 2024-10-07 19:17 | PHA.MEDREC ---
Pharmacy Consult ? Medication Reconciliation Pharmacy has completed the medication reconciliation. Utilized list from [facility].
--- NOTE | 2024-10-07 19:17 | PC.NURSE ---
Per Estefani FIELDS changed dose rate to 0.03mcg/kg/min. Will assess Bp in 15 mins.
--- NOTE | 2024-10-07 19:21 | PC.NURSE ---
Ptient alert and oriented x 3. Belarusian speaking. has 3 iv's 18g left forearm, 20g left wrist, and 22g right wrist. Patient c/o 8/10 generalized pain. Patient on hospital bed. Monroy placed 20f coude 30cc in bulb. Patient is on shari hugger temp was 95.5 via rectal probe now it is 97.0. Patients bp is going up and down Levophed running at 0.03mcg/kg/hr. Gave report to Irem will give re[prt to Carson.
--- NOTE | 2024-10-07 20:00 | PC.NURSE ---
pt transported to the icu. report to bret mckinnon
--- NOTE | 2024-10-07 20:01 | P.HPCC_ITS ---
History of Present Illness Date of Service: 10/07/24 Attending physician on admission: Jose F Mcduffie Chief Complaint: Hypotension, weakness Mr. Cabrera Is a 69-year-old male with history of DM 2 with polyneuropathy, HTN, CKD, spinal stenosis, ESBL +E coli sent from his rehab facility for hypotension. ? He reportedly had labs done at the rehab this morning; WBC 17, creatinine 2.4 (baseline 1-1.2). The patient reports no complaints.? No pain, N/V/D, no fevers. No dysuria. He denies abdominal pain, chest pain. He states he has not been sick recently.? He does report some generalized weakness. On arrival to the emergency room, the patient's blood pressure ? 77/40, HR 84, temp 96.6,? O2 sat 95% on RA.? Laboratory data significant for? WBC 13.0, hemoglobin 11.9, hematocrit 35.3, sodium 134, potassium 6.4, CO2 21, BUN 56, creatinine 2.51, initial lactic acid 4.6, AST 53, CRP 10.88.? Imaging:? Chest x-ray showed nothing acute. Abd/pelvis CT? showed a markedly distended stomach with a moderate to large amount of stool throughout the colon, distended bladder.? ED course: The patient was given LR 2604 mL per sepsis protocol. He received calcium gluconate 2 g, meropenem 1 g, was started on a Levophed drip. Review of Systems 2 Review of Systems: Yes all other systems are reviewed and are negative Constitutional: Constitutional: Reports as per HPI and Denies headache(s) Eyes: Eyes: Denies change in vision and Denies photophobia ENT: Reports Normal hearing present, Denies dysphagia, Denies dizziness, Denies headache(s), Denies nasal congestion and Denies sore throat Cardiovascular: Cardiovascular: Denies epigastric discomfort, Denies lightheadedness and Denies dyspnea Respiratory: Respiratory: Denies chest congestion, Denies cough and Denies dyspnea Gastrointestinal: Gastrointestinal: Denies abdominal pain, Denies dysphagia, Denies diarrhea, Denies nausea and Denies vomiting Genitourinary: Genitourinary: Denies difficulty urinating Musculoskeletal: Musculoskeletal: Reports muscle weakness Integumentary/Breasts: Skin/Breast: Denies lesions, Denies rash and Denies wounds Neurologic: Reports Normal hearing present, Denies confusion, Denies dizziness and Denies headache(s) Psychiatric: Psychiatric: Denies confusion Endocrine: Endocrine: Denies polyphagia, Denies polydipsia and Denies polyuria [facility] Past Medical History Medical History GERD (gastroesophageal reflux disease) Acute cholecystitis due to biliary calculus Numbness and tingling in right hand Numbness and tingling in left hand Essential hypertension Diabetes mellitus Knee osteoarthritis Mild recurrent major depression Mixed hyperlipidemia Right shoulder pain Right knee pain Left knee pain CKD (chronic kidney disease), stage III Low back pain Multiple falls Syncope DAVINA (acute kidney injury) Obesity due to excess calories Lumbar spondylosis Proteinuria Arthritis Hypertriglyceridemia Hypertension Diabetic polyneuropathy associated with type 2 diabetes mellitus Type 2 diabetes mellitus with other diabetic kidney complication Lumbar stenosis Family History Family History Father Medical history unknown Mother Hypertension Maternal Grandmother Medical history unknown Surgical History Surgical History History of cholecystectomy (09/19/23) History of surgery on lower extremity History of total left knee replacement (TKR) S/P evacuation of hematoma Hx of cataract surgery History of lumbar surgery Hx of eye surgery History of back surgery Social History Social History Household Members: None Household Members Other:: self Housing: Assisted Living Facility Housing Other:: currently at [facility] Are you a primary home health care worker to a significant other at home: No Do you presently have visiting nurse or other home services: Yes ([facility] architect) Alcohol intake: former Comment: Narciso jack Patient Tobacco Use Status: Former Tobacco user Tobacco use type: Cigarette Years Smoked: 25 Smoked in Last 30 Days: No e-Cigarette/Vaping Use: Never Used Patient Interested in Nicotine Replacement: No Patient Given Instructions on How to Stop Smoking: No Second Hand Smoke Exposure: No Use of substances other than those prescribed or required for medical reasons: No Currently Displaying Signs/Symptoms of Drug Intoxication Withdrawal: No Any prior treatment program specific to substance use: No Have you been hit, kicked, punched, or otherwise hurt by someone within the past year? If so, by whom?: No Do you feel safe in your current relationship?: Yes Is there a partner from a previous relationship who is making you feel unsafe now?: No Are you made to feel afraid or neglected: No Advance Directives: Yes Advance Directives Information Provided: No Advance Directives on File: Yes Advance Directives Date on File: 05/12/23 Do you have a plan to hurt others: No Plan Recently lost weight without trying: No Eating poorly because of decreased appetite: No Nutrition Risks: No Nutritional Risk Poor oral hygiene: No service: Yes Current occupational status: disabled Cognitive needs: Yes (walker) Hearing needs: No Vision needs: Yes (reading glasses) Meds Allergies Allergy/AdvReac Type Severity Reaction Status Date / Time Penicillins [PENICILLINS] Allergy Severe RASH Verified 10/07/24 14:14 jay pepper Allergy Intermediate Rash Verified 10/07/24 14:14 pepper (genus Capsicum) AdvReac Intermediate rashes Verified 10/07/24 14:14 Active Medications: Current Medications Heparin Sodium (Porcine) (Heparin Sodium,Porcine 5,000 Unit/Ml Vial) 5,000 unit SUBCUT Q8H [facility] Lactated Ringer's (Lr) 1,000 mls @ 80 mls/hr IVCONT .[id number] [facility] Last Admin: 10/07/24 17:59 Dose: 80 mls/hr Norepinephrine Bitartrate (Levophed) 8 mg in 250 mls @ 0 mls/hr IVCONT .Q0M IMTIAZ; Protocol Last Titration: 10/07/24 19:47 Dose: 0.05 mcg/kg/min, 7.86 mls/hr Vancomycin HCl (Vancomycin/Ns) 2,000 mg in 500 mls @ 250 mls/hr IV ONCE ONE Stop: 10/07/24 21:59 Meropenem (Meropenem 1 Gm Vial) 1 gm IVPUSH Q12H [facility] Pharmacy Consult (Consult Rx Vancomycin Dosing) 1 each MISCELLANE DAILY PRN PRN Reason: Consult order Home Medications ?Medication ?Instructions ?Recorded ?Confirmed ?Last Taken ?Type latanoprost 0.005 % eye drops 1 drp ophthalmic (eye) BEDTIME 11/07/20 10/07/24 09/17/23 History insulin aspart U-100 100 unit/mL 1 sliding scale dose subcut TIDAC 09/18/23 10/07/24 Unknown History (3 mL) subcutaneous pen aspirin 81 mg tablet,delayed 81 mg PO DAILY@0800 05/02/24 10/07/24 08/16/24 History release atorvastatin 20 mg tablet 20 mg PO DAILY@199905/02/24 10/07/24 05/01/24 20:00 History cyclobenzaprine 10 mg tablet 10 mg PO BID muscle spasm 05/02/24 10/07/24 05/01/24 20:00 History fenofibrate nanocrystallized 145 145 mg PO DAILY@0800 05/02/24 10/07/24 05/02/24 08:00 History mg tablet hydralazine 25 mg tablet 25 mg PO TID@0800,1299,199905/02/24 10/07/24 05/02/24 08:00 History metformin 500 mg tablet,extended 1,000 mg PO BID@0800,199905/02/24 10/07/24 05/02/24 08:00 History release 24 hr sitagliptin phosphate 25 mg tablet 25 mg PO DAILY@0800 05/02/24 10/07/24 08/16/24 History ([place]indy) lidocaine 5 % topical patch 1 patch topical DAILY 05/19/24 10/07/24 Unknown History acetaminophen 325 mg capsule 650 mg PO Q4H PRN Pain 08/18/24 10/07/24 Unknown History bisacodyl 10 mg rectal suppository 10 mg NH DAILY PRN Constipation 08/18/24 10/07/24 Unknown History calcium carbonate 1,000 mg PO Q4H PRN Heartburn 08/18/24 10/07/24 Unknown History gabapentin 100 mg capsule 200 mg PO BID 08/18/24 10/07/24 Unknown History magnesium hydroxide 400 mg/5 mL 30 ml PO DAILY PRN Constipation 08/18/24 10/07/24 Unknown History oral suspension naloxone 4 mg/actuation nasal 4 mg intranasal Q3M PRN Opioid 08/18/24 10/07/24 Unknown History spray (Narcan) Overdose sennosides 8.6 mg capsule (senna) 17.2 mg PO BEDTIME PRN Constipation 08/18/24 10/07/24 Unknown History acetaminophen 500 mg tablet 1,000 mg PO TID 10/07/24 10/07/24 Unknown History benazepril 40 mg tablet 40 mg PO DAILY@199910/07/24 10/07/24 Unknown History furosemide 20 mg tablet (Lasix) 20 mg PO DAILY 10/07/24 10/07/24 Unknown History hydralazine 25 mg tablet 25 mg PO Q8H PRN BP > 140 systolic 10/07/24 10/07/24 Unknown History sodium phosphates 19 gram-7 118 ml NH DAILY PRN Constipation 10/07/24 10/07/24 Unknown History gram/118 mL enema (Fleet Enema) Physical Exam 2 Vital Signs: Vital Signs: Last Vital Signs Temp 100.2 F 10/07/24 19:54 Pulse 69 10/07/24 19:54 Resp 22 H 10/07/24 19:54 BP 122/6 L 10/07/24 19:54 Pulse Ox 95 10/07/24 19:54 O2 Del Method Mechanical Ventil ation 10/07/24 19:54 FiO2 25 10/07/24 19:54 BMI result Body Mass Index 28.1 Const: General: No confusion Orientation/consciousness: No confusion HEENT: Head: Yes normocephalic and Yes atraumatic General nose exam: Normal external nose present (Nares patent, septum midline, sinuses nontender bilaterally.) Mouth: mucous membranes dry (Dry mucous membranes) Eyes: Direct Ophthalmoscopy: No photophobia Neck: Neck: Yes supple (no thyromegaly, trachea midline.) Carotids: normal carotid upstroke Resp: Effort & Inspection: normal respiratory effort, no audible wheezes and no cough Auscultation: diminished lung sounds bilateral in the lower lung rojas Cardio: Jugular venous distension: no JVD Rate: regular rate Rhythm: r egular rhythm Heart sounds: no gallops, no murmurs and no rubs Peripheral pulses: Peripheral pulses 2+ throughout GI: Palpation (GI): Soft to palpation (nondistended.) and nontender Neuro: General: No confusion Cranial nerves: Yes Normal hearing present Extrem: General: Yes full ROM, Yes capillary refill normal and Yes no clubbing, cyanosis or edema Psych: Affect: normal affect Attitude: cooperative Results Labs 10/08/24 08:43 10/08/24 08:43 Labs: Laboratory Results - last 24 hr 10/07/24 10/07/24 10/07/24 14:20 14:29 14:32 MCV 90.5 MCH 30.5 MCHC 33.7 RDW 16.8 H Plt Count 236 MPV 11.8 Immature Gran % (Auto) 0.7 H Neut % (Auto) 79.9 H Lymph % (Auto) 11.9 L [place] % (Auto) 4.2 Eos % (Auto) 2.9 Baso % (Auto) 0.4 Lymph # (Auto) 1.5 [place] # (Auto) 0.5 Eos # (Auto) 0.4 Baso # (Auto) 0.1 Abs Immat Gran (auto) 0.09 H Absolute Neuts (auto) 10.4 H Absolute Nucleated RBC 0.000 Nucleated RBC % (auto) 0.0 Smear Tech's Comments VERIFIED Anion Gap 20 Estim Creat Clear Calc 28.6 Estimated GFR 26 POC Glucose 100 Random Glucose 98 Lactic Acid 4.6 H* Lactic Acid F/U @ 2Hr Calcium 9.0 Magnesium 2.0 Total Bilirubin 0.4 Direct Bilirubin 0.1 AST 53 H ALT 15 Alkaline Phosphatase 40 Total Creatine Kinase 62 C-Reactive Protein 10.88 H B-Natriuretic Peptide < 10 Total Protein 7.2 Albumin 3.5 Lipase 23 Procalcitonin 0.22 TSH 1.37 Urine Color Urine Appearance Urine pH Ur Specific [place] Urine Protein Urine Glucose (UA) Urine Ketones Urine Blood Urine Nitrite Ur Leukocyte Esterase Influenza Type A (PCR) Influenza Type B (PCR) RSV RNA Qual (PCR) SARS-CoV-2 RNA (RT-PCR) 10/07/24 10/07/24 10/07/24 15:40 16:56 16:57 MCV MCH MCHC RDW Plt Count MPV Immature Gran % (Auto) Neut % (Auto) Lymph % (Auto) [place] % (Auto) Eos % (Auto) Baso % (Auto) Lymph # (Auto) [place] # (Auto) Eos # (Auto) Baso # (Auto) Abs Immat Gran (auto) Absolute Neuts (auto) Absolute Nucleated RBC Nucleated RBC % (auto) Smear Tech's Comments Anion Gap Estim Creat Clear Calc Estimated GFR POC Glucose Random Glucose Lactic Acid Lactic Acid F/U @ 2Hr 3.6 H* Calcium Magnesium Total Bilirubin Direct Bilirubin AST ALT Alkaline Phosphatase Total Creatine Kinase C-Reactive Protein B-Natriuretic Peptide Total Protein Albumin Lipase Procalcitonin TSH Urine Color Dark Yellow Urine Appearance Clear Urine pH 5.5 Ur Specific [place] 1.020 Urine Protein Trace Urine Glucose (UA) Negative Urine Ketones Negative Urine Blood Negative Urine Nitrite Negative Ur Leukocyte Esterase Negative Influenza Type A (PCR) NEGATIVE Influenza Type B (PCR) NEGATIVE RSV RNA Qual (PCR) NEGATIVE SARS-CoV-2 RNA (RT-PCR) NEGATIVE Imaging Radiologist's Impressions: Impressions Chest X-Ray 10/07/24 14:18 IMPRESSION: No acute airspace disease. Electronically signed by: Seth Briggs MD 10/07/2024 02:57 PM EDT RP Abdomen/Pelvis CT 10/07/24 15:14 IMPRESSION: 1. Markedly distended stomach with fluid and debris. 2. Moderate to large amount of stool throughout the colon. 3. Distended urinary bladder. Electronically signed by: Jorge Huynh MD 10/07/2024 03:43 PM EDT RP Assessment and Plan (1) Sepsis: Qualifiers: Sepsis acute organ dysfunction status: with acute organ dysfunction S epsis type: sepsis due to unspecified organism Severe sepsis acute organ dysfunction type: unspecified Severe sepsis shock status: unspecified Q ualified Code(s): A41.9 - Sepsis, unspecified organism; R65.20 - Severe sepsis without septic shock Status: Acute (2) Acute hypotension: Status: Acute (3) DAVINA (acute kidney injury): Status: Acute (4) Hypothermia: Qualifiers: Encounter type: initial encounter Qualified Code(s): T68.XXXA - Hypothermia, initial encounter Status: Acute (5) CRP elevated: Status: Acute Plan 69-year-old male with history of DM 2 with polyneuropathy, HTN, CKD, spinal stenosis, ESBL +E coli admitted to the ICU for management sepsis, hypotension requiring pressor support. Neuro: No acute issues Cardiac: Sepsis, hypothermia, leukocytosis, hypotension. No clear source identified on imaging. Cultures pending. Fluid resuscitated with 2604 L in ED. N orepinephrine gtt. Wean as tolerated. Pulmonary: No acute issues.? Renal:? Underlying CKD. DAVINA, hyponatremia, hyperkalemia. Pt appears dehydrated. Non-oliguric. Gentle hydration. Monitor electrolytes, renal function, intake and output. Endo: ??Underlying DM 2. Monitor hypo-/hyper-glycemia. Sliding scale per protocol. GI: ?Moderate stool burden noted on abd CT. Last BM yesterday per pt. Miralax ordered. ID: Sepsis. No clear source identified. Pt has hx of ESBL. Volume resuscitated in ED. Add Vancomycin. Continue Meropenem. Await cultures and additional test results. Heme/Onc: No acute issues. Psych: No acute issues. Prophylaxis: pneumatic hoses, Heparin Diet: Diabetic Patient's care was discussed in detail with Dr. Mcduffie.? He is aware of all the above as well as the plan of care for this patient. Total time managing care of this patient today: 60 minutes.
[2024-10-07 20:27] LABS: Anion Gap 15 (12-20); Blood Urea Nitrogen 52 mg/dL (9-16); Calcium 9.5 mg/dL (8.4-10.2); Carbon Dioxide 26 mmol/L (22-29); Chloride 102 mmol/L (96-108); Estimated Glomerular Filt Rate 33; Glucose Random 104 mg/dL (60-115); Potassium 5.1 mmol/L (3.3-5.1); Sodium 138 mmol/L (135-145)
[2024-10-07] MEDS: Heparin Sodium,Porcine 5,000 UNIT/ML VIAL 5000 UNIT SUBCUT (20:28)
[2024-10-07] MEDS: vancomycin/NS 2,000 MG/500 ML PLAST..BAG 250 MG IV (20:34)
--- NOTE | 2024-10-07 20:45 | PHA.PROG ---
Admission Date/Time: October 07, 2024 18:55 Indication: other Weight in k.8 kg Adjusted body weight in Kg: [place] body weight in Kg: Obesity Dosing Indication % IBW: Serum Creatinine - Last 168 Hours 10/07/24 10/07/24 14:29 20:07 Creatinine 2.51 H 2.04 H Estimated CrCl and GFR - Last 168 Hours 10/07/24 10/07/24 14:29 20:07 Estim Creat Clear Calc 28.6 36.0 Estimated GFR 26 33 Vancomycin Loading Dose: 2000mg x 1 Current Vancomycin Dosing Regimen: 750mg q24h Vancomycin Monitoring using AUC goal of 400 - 600 range with trough as surrogate marker: 466 mg/L Date and Time for next Vancomycin Level to be drawn: 10/08/24 @1900 Pharmacist Comments on Vancomycin Plan: Patient with DAVINA, getting level after load to determine further dosing. If renal improves can re-time level. Predicted trough of 15.9 mg/L Vancomycin dosing will take advantage of [employer] as a clinical decision support tool that uses Bayesian modeling to calculate individual patient's pharmacokinetic parameters and forecast the patient's drug concentration time course with the target goal AUC 24 range of 400 - 600 mg/L/hr.
[2024-10-08] VITALS (32 sets, daily range): BP systolic 76–134; BP diastolic 41–75; PULSE 68–115; RESP 11–20; TEMP 37.7–38.4; O2SAT 91–97; BMI 29.0
[2024-10-08] MEDS: Heparin Sodium,Porcine 5,000 UNIT/ML VIAL 5000 UNIT SUBCUT ×3 (02:59→17:57)
[2024-10-08] MEDS: Meropenem 1 GM VIAL IVPUSH ×2 (05:37→16:59)
[2024-10-08] MEDS: Lactated Ringers 1,000 ML 80 ML IVCONT (05:43)
[2024-10-08 06:02] LABS: Creatinine Clr Calc Pharmacy 45.2; Estimated Glomerular Filt Rate 42
[2024-10-08 07:35] LABS: Glucose, Whole Blood 163 mg/dL (60-115)
[2024-10-08] MEDS: Insulin Lispro 100 UNIT/ML 3 ML VIAL SUBCUT ×4 (07:44→21:09)
[2024-10-08] MEDS: polyethylene glycoL 3350 17 GM POWD.PACK PO (07:44)
[2024-10-08] MEDS: Acetaminophen 325 MG TABLET 650 MG PO (08:14)
[2024-10-08 08:47] LABS: Hematocrit 33.3 % (42.0-52.0); Hemoglobin 11.3 g/dl (14.0-18.0); Mean Corpuscular HGB Conc 33.9 g/dl (31.0-36.0); Mean Corpuscular Hemoglobin 29.9 pg (27.0-33.0); Mean Corpuscular Volume 88.1 fL (80.0-98.0); Mean Platelet Volume 11.2 fL (9.4-12.4); Platelet Count 283 X10*3/uL (160-400); Red Blood Count 3.78 X10*6/uL (4.60-5.80); Red Cell Distribution Width 16.4 % (11.0-16.0)
[2024-10-08 08:48] LABS: WBC ABN SCTR FOR CBC 1; White Blood Count 12.8 X10*3/uL (4.8-10.8)
[2024-10-08 09:01] LABS: Albumin Level 3.1 g/dL (3.5-5.0); Anion Gap 11 (12-20); Blood Urea Nitrogen 41 mg/dL (9-16); Carbon Dioxide 23 mmol/L (22-29); Chloride 110 mmol/L (96-108); Creatinine Clr Calc Pharmacy 48.4; Estimated Glomerular Filt Rate 45; Glucose Random 190 mg/dL (60-115); Magnesium 1.6 mg/dL (1.6-2.6); Phosphorus 2.5 mg/dL (2.7-4.5); Potassium 4.9 mmol/L (3.3-5.1); Sodium 139 mmol/L (135-145)
[2024-10-08 09:07] LABS: Band Neutrophils Percent 1 % (3-5); Eosinophils Absolute Manual 0.1 X10*3/uL (0.0-0.4); Eosinophils Percent Manual 1 % (0-4); Lymphocytes Absolute Manual 1.5 X10*3/uL (1.2-4.9); Lymphocytes Percent Manual 12 % (20-40); Monocytes Absolute Manual 0.5 X10*3/uL (0.1-1.2); Monocytes Percent Manual 4 % (2-11); Neutrophils Absolute Manual 10.6 X10*3/uL (2.0-8.3); Neutrophils Percent Manual 82 % (45-73)
[2024-10-08 09:09] LABS: RBC Morphology NOTED
[2024-10-08 09:10] LABS: Target Cells 1+ (5-14) /OIF
[2024-10-08 09:12] LABS: Large Platelet PRESENT; Platelet Estimate NORMAL (NORMAL); Platelet Morphology Comment NOTED
--- NOTE | 2024-10-08 09:15 | HE.PHANOTE ---
Re Vanc Renal improved, CrCl from 28.6 -> 48.4, 750mg Q24H no subtherapeutic. Will increase to 1250mg q24H to shoot for a trough of ~16.0mg/L and AUC of 522 mg/L. Choosing higher goal for now since patient meets SIRS criteria. Next level still tonight at 2100.
--- NOTE | 2024-10-08 09:31 | MHC.CM.PN ---
Pt admitted to ICU w/sepsis and hypotension requiring pressors. Pt resides at [facility] and is a physical assist for ADL's and mobility. MOLST and HCP on file and verified: Pt will return to [facility] via BLS when medically stable. CM to follow IMM in chart
--- NOTE | 2024-10-08 10:42 | PM.CCPN ---
Subjective Subjective Date of Service: 10/08/24 Interval History: 69-year-old gentleman with underlying history of diabetes mellitus, CKD, hypertension, prior ESBL E coli admitted on 10/07/2024 with septic shock of unclear etiology with poor response to initial IV fluid resuscitation requiring pressor support. Patient started on broad-spectrum antibiotics and admitted to the intensive care unit. No events overnight. Critical Care Time (minutes): 45 Physical Exam Vital Signs: Vital Signs: Last Vital Signs Temp 100.6 F H 10/08/24 10:00 Pulse 105 H 10/08/24 10:00 Resp 18 10/08/24 10:00 BP 121/62 10/08/24 10:00 Pulse Ox 94 10/08/24 10:00 O2 Del Method Room Air 10/08/24 10:00 O2 Flow Rate 96 10/08/24 01:00 BMI result Body Mass Index 29.0 Const: General: no acute distress, alert and awake Eyes: Sclerae: sclerae normal EOM: EOMs intact bilaterally Neck: Neck: Yes no lymphadenopathy, Yes trachea midline and Yes supple Resp: Effort & Inspection: normal respiratory effort and no respiratory distress Auscultation: clear to auscultation bilaterally Cardio: Rate: tachycardic Rhythm: regular rhythm Heart sounds: no gallops, no murmurs and no rubs GI: Palpation (GI): Soft to palpation and Other GI palpation findings present ( Nontender) Auscultation: normal bowel sounds Extrem: General: Yes no pedal edema, No clubbing and No cyanosis Objective Data Labs 10/08/24 08:43 10/08/24 08:43 Labs: Laboratory Results - last 24 hr 10/07/24 10/07/24 10/07/24 14:20 14:29 14:32 WBC 13.0 H RBC 3.90 L Hgb 11.9 L Hct 35.3 L MCV 90.5 MCH 30.5 MCHC 33.7 RDW 16.8 H Plt Count 236 MPV 11.8 Immature Gran % (Auto) 0.7 H Neut % (Auto) 79.9 H Lymph % (Auto) 11.9 L [place] % (Auto) 4.2 Eos % (Auto) 2.9 Baso % (Auto) 0.4 Lymph # (Auto) 1.5 [place] # (Auto) 0.5 Eos # (Auto) 0.4 Baso # (Auto) 0.1 Abs Immat Gran (auto) 0.09 H Absolute Neuts (auto) 10.4 H Absolute Nucleated RBC 0.000 Nucleated RBC % (auto) 0.0 Neutrophils % (Manual) Band Neutrophils % Lymphocytes % (Manual) Monocytes % (Manual) Eosinophils % (Manual) Abs Neuts (Manual) Lymphocytes # (Manual) Monocytes # (Manual) Eosinophils # (Manual) Platelet Estimate Large Platelets Plt Morphology Comment RBC Morphology Target Cells Smear Tech's Comments VERIFIED Hold Purple Top Sodium 134 L Potassium 6.4 H* D Chloride 99 Carbon Dioxide 21 L Anion Gap 20 BUN 56 H Creatinine 2.51 H Estim Creat Clear Calc 28.6 Estimated GFR 26 POC Glucose 100 Random Glucose 98 Lactic Acid 4.6 H* Lactic Acid F/U @ 2Hr Lactic Acid F/U @ 4Hr Calcium 9.0 Phosphorus Magnesium 2.0 Total Bilirubin 0.4 Direct Bilirubin 0.1 AST 53 H ALT 15 Alkaline Phosphatase 40 Total Creatine Kinase 62 Troponin I High Sens < 2.7 C-Reactive Protein 10.88 H B-Natriuretic Peptide < 10 Total Protein 7.2 Albumin 3.5 Lipase 23 Procalcitonin 0.22 TSH 1.37 Hold Yellow Top Urine Color Urine Appearance Urine pH Ur Specific [place] Urine Protein Urine Glucose (UA) Urine Ketones Urine Blood Urine Nitrite Ur Leukocyte Esterase Influenza Type A (PCR) Influenza Type B (PCR) RSV RNA Qual (PCR) SARS-CoV-2 RNA (RT-PCR) 10/07/24 10/07/24 10/07/24 15:40 16:05 16:56 WBC RBC Hgb Hct MCV MCH MCHC RDW Plt Count MPV Immature Gran % (Auto) Neut % (Auto) Lymph % (Auto) [place] % (Auto) Eos % (Auto) Baso % (Auto) Lymph # (Auto) [place] # (Auto) Eos # (Auto) Baso # (Auto) Abs Immat Gran (auto) Absolute Neuts (auto) Absolute Nucleated RBC Nucleated RBC % (auto) Neutrophils % (Manual) Band Neutrophils % Lymphocytes % (Manual) Monocytes % (Manual) Eosinophils % (Manual) Abs Neuts (Manual) Lymphocytes # (Manual) Monocytes # (Manual) Eosinophils # (Manual) Platelet Estimate Large Platelets Plt Morphology Comment RBC Morphology Target Cells Smear Tech's Comments Hold Purple Top Sodium Potassium 3.8 D Chloride Carbon Dioxide Anion Gap BUN Creatinine Estim Creat Clear Calc Estimated GFR POC Glucose Random Glucose Lactic Acid Lactic Acid F/U @ 2Hr Lactic Acid F/U @ 4Hr Calcium Phosphorus Magnesium Total Bilirubin Direct Bilirubin AST ALT Alkaline Phosphatase Total Creatine Kinase Troponin I High Sens C-Reactive Protein B-Natriuretic Peptide Total Protein Albumin Lipase Procalcitonin TSH Hold Yellow Top Urine Color Dark Yellow Urine Appearance Clear Urine pH 5.5 Ur Specific [place] 1.020 Urine Protein Trace Urine Glucose (UA) Negative Urine Ketones Negative Urine Blood Negative Urine Nitrite Negative Ur Leukocyte Esterase Negative Influenza Type A (PCR) NEGATIVE Influenza Type B (PCR) NEGATIVE RSV RNA Qual (PCR) NEGATIVE SARS-CoV-2 RNA (RT-PCR) NEGATIVE 10/07/24 10/07/24 10/08/24 16:57 20:07 05:01 WBC RBC Hgb Hct MCV MCH MCHC RDW Plt Count MPV Immature Gran % (Auto) Neut % (Auto) Lymph % (Auto) [place] % (Auto) Eos % (Auto) Baso % (Auto) Lymph # (Auto) [place] # (Auto) Eos # (Auto) Baso # (Auto) Abs Immat Gran (auto) Absolute Neuts (auto) Absolute Nucleated RBC Nucleated RBC % (auto) Neutrophils % (Manual) Band Neutrophils % Lymphocytes % (Manual) Monocytes % (Manual) Eosinophils % (Manual) Abs Neuts (Manual) Lymphocytes # (Manual) Monocytes # (Manual) Eosinophils # (Manual) Platelet Estimate Large Platelets Plt Morphology Comment RBC Morphology Target Cells Smear Tech's Comments Hold Purple Top SEE NOTE Sodium 138 Potassium 5.1 D Chloride 102 Carbon Dioxide 26 Anion Gap 15 BUN 52 H Creatinine 2.04 H 1.65 H Estim Creat Clear Calc 36.0 45.2 Estimated GFR 33 42 POC Glucose Random Glucose 104 Lactic Acid Lactic Acid F/U @ 2Hr 3.6 H* Lactic Acid F/U @ 4Hr 3.0 H* Calcium 9.5 Phosphorus Magnesium Total Bilirubin Direct Bilirubin AST ALT Alkaline Phosphatase Total Creatine Kinase Troponin I High Sens C-Reactive Protein B-Natriuretic Peptide Total Protein Albumin Lipase Procalcitonin TSH Hold Yellow Top See Note Urine Color Urine Appearance Urine pH Ur Specific [place] Urine Protein Urine Glucose (UA) Urine Ketones Urine Blood Urine Nitrite Ur Leukocyte Esterase Influenza Type A (PCR) Influenza Type B (PCR) RSV RNA Qual (PCR) SARS-CoV-2 RNA (RT-PCR) 10/08/24 10/08/24 07:32 08:43 WBC 12.8 H RBC 3.78 L Hgb 11.3 L Hct 33.3 L MCV 88.1 MCH 29.9 MCHC 33.9 RDW 16.4 H Plt Count 283 MPV 11.2 Immature Gran % (Auto) Cancelled Neut % (Auto) Cancelled Lymph % (Auto) Cancelled [place] % (Auto) Cancelled Eos % (Auto) Cancelled Baso % (Auto) Cancelled Lymph # (Auto) Cancelled [place] # (Auto) Cancelled Eos # (Auto) Cancelled Baso # (Auto) Cancelled Abs Immat Gran (auto) Cancelled Absolute Neuts (auto) Cancelled Absolute Nucleated RBC 0.000 Nucleated RBC % (auto) 0.0 Neutrophils % (Manual) 82 H Band Neutrophils % 1 L Lymphocytes % (Manual) 12 L Monocytes % (Manual) 4 Eosinophils % (Manual) 1 Abs Neuts (Manual) 10.6 H Lymphocytes # (Manual) 1.5 Monocytes # (Manual) 0.5 Eosinophils # (Manual) 0.1 Platelet Estimate NORMAL Large Platelets PRESENT Plt Morphology Comment NOTED RBC Morphology NOTED Target Cells 1+ (5-14) Smear Tech's Comments Hold Purple Top Sodium 139 Potassium 4.9 Chloride 110 H Carbon Dioxide 23 Anion Gap 11 L BUN 41 H Creatinine 1.54 H Estim Creat Clear Calc 48.4 Estimated GFR 45 POC Glucose 163 H Random Glucose 190 H Lactic Acid Lactic Acid F/U @ 2Hr Lactic Acid F/U @ 4Hr Calcium 9.0 Phosphorus 2.5 L Magnesium 1.6 Total Bilirubin Direct Bilirubin AST ALT Alkaline Phosphatase Total Creatine Kinase Troponin I High Sens C-Reactive Protein B-Natriuretic Peptide Total Protein Albumin 3.1 L Lipase Procalcitonin TSH Hold Yellow Top Urine Color Urine Appearance Urine pH Ur Specific [place] Urine Protein Urine Glucose (UA) Urine Ketones Urine Blood Urine Nitrite Ur Leukocyte Esterase Influenza Type A (PCR) Influenza Type B (PCR) RSV RNA Qual (PCR) SARS-CoV-2 RNA (RT-PCR) Progress Note: A&P Assessment and plan (1) Sepsis: Status: Acute (2) DAVINA (acute kidney injury): Status: Acute (3) Diabetes mellitus: Status: Acute Plan Assessment: 69-year-old gentleman with underlying diabetes mellitus and hypotension admitted with septic shock with unclear source requiring pressor support. Plan: Neuro: No acute issues. Cardiac: Septic shock, continue to titrate off pressor support as tolerated. Pulmonary: No acute issues. Renal: Acute kidney injury, likely secondary to ATN from septic shock, improving. Non oliguric. Continue to monitor renal indices and urine output. Endo: No acute issues. GI: No acute issues. ID: Septic shock with unclear source, continue broad-spectrum antibiotics. Cultures are pending. Heme/Onc: No acute issues. Psych: No acute issues. Miscellaneous: No acute issues. Prophylaxis: Heparin Diet: Diabetic Critical care time spent: 45 minutes Quality Stroke Does the patient have a stroke diagnosis?: No VTE Prior VTE?: No VTE Risk Level:: Medical - moderate - high VTE Device Contraindication: Treatment Not Indicated VTE Drug Contraindication: N/A - Med Ordered
[2024-10-08 11:21] LABS: Glucose, Whole Blood 171 mg/dL (60-115)
[2024-10-08 16:28] LABS: Glucose, Whole Blood 170 mg/dL (60-115)
[2024-10-08] MEDS: Norepinephrine Bitartrate/D5W 8 MG/250 ML PLAST..BAG 9.43 MG IVCONT (16:58)
[2024-10-08 19:18] LABS: Vancomycin Random 14.8 mcg/mL (15-20)
--- NOTE | 2024-10-08 19:31 | HE.PHANOTE ---
Re: Vanco Renal has improved. Trough returned at 14.8. Dose changed to to 1,000mg q24h with predicted AUC 493, predicted trough 14.9. Next trough / @ 1900.
[2024-10-08] MEDS: vancomycin HCL 1,000 MG in 0.9 % Sodium Chloride 250 ML 270 MG IV (20:04)
[2024-10-08 20:46] LABS: Glucose, Whole Blood 157 mg/dL (60-115)
[2024-10-09] VITALS (30 sets, daily range): BP systolic 88–120; BP diastolic 50–75; PULSE 63–106; RESP 11–97; TEMP 36.1–37.7; O2SAT 91–99; BMI 29.0
[2024-10-09] MEDS: 0.9 % Sodium Chloride Flush 3 ML SYRINGE IVFLUSH ×4 (00:50→22:19)
[2024-10-09] MEDS: Heparin Sodium,Porcine 5,000 UNIT/ML VIAL 5000 UNIT SUBCUT ×3 (03:02→19:27)
[2024-10-09] MEDS: Morphine Sulfate 2 MG/ML CARTRIDGE IVPUSH (03:27)
[2024-10-09] MEDS: Meropenem 1 GM VIAL IVPUSH ×2 (04:30→17:02)
[2024-10-09] MEDS: oxyCODONE HCl Immed Release 5 MG TABLET 10 MG PO ×3 (04:52→23:46)
[2024-10-09 04:57] LABS: VBG Base Excess 2.3 mmol/L; VBG HCO3 24 mmol/L (22-26); VBG pCO2 29 mmHg; VBG pH 7.52 (7.32-7.43); VBG pO2 54 mmHg; Venous Blood Gas Refer to POC result
[2024-10-09 05:08] LABS: MANUAL DIFF FLAG NO
[2024-10-09 05:09] LABS: Basophils Absolute Auto 0.1 X10*3/uL (0.0-0.2); Basophils Percent Auto 0.4 % (0-2); Eosinophils Absolute Auto 0.2 X10*3/uL (0.0-0.4); Eosinophils Percent Auto 1.8 % (0-4); Hematocrit 34.7 % (42.0-52.0); Hemoglobin 11.6 g/dl (14.0-18.0); Imm Gran Abs Auto 0.05 X10*3/uL (0.00-0.03); Imm Gran Pct Auto 0.4 % (0.0-0.4); Lymphocytes Absolute Auto 1.5 X10*3/uL (1.2-4.9); Lymphocytes Percent Auto 13.3 % (20-40); Mean Corpuscular HGB Conc 33.4 g/dl (31.0-36.0); Mean Corpuscular Hemoglobin 29.6 pg (27.0-33.0); Mean Corpuscular Volume 88.5 fL (80.0-98.0); Mean Platelet Volume 12.1 fL (9.4-12.4); Monocytes Percent Auto 8.4 % (2-11); Neutrophils Absolute Auto 8.5 x10*3/uL (2.0-8.3); Neutrophils Percent Auto 75.7 % (45-73); Platelet Count 268 X10*3/uL (160-400); Red Blood Count 3.92 X10*6/uL (4.60-5.80); Red Cell Distribution Width 16.4 % (11.0-16.0); White Blood Count 11.3 X10*3/uL (4.8-10.8)
[2024-10-09 05:24] LABS: Alanine Aminotransferase 7 U/L (0-40); Alkaline Phosphatase 35 U/L (39-117); Anion Gap 13 (12-20); Aspartate Amino Transferase 32 U/L (5-37); Bilirubin Total 0.5 mg/dL (0.0-1.0); Blood Urea Nitrogen 27 mg/dL (9-16); Calcium 8.8 mg/dL (8.4-10.2); Carbon Dioxide 21 mmol/L (22-29); Chloride 112 mmol/L (96-108); Creatinine Clr Calc Pharmacy 81.9; Estimated Glomerular Filt Rate > 60; Glucose Random 163 mg/dL (60-115); Magnesium 1.5 mg/dL (1.6-2.6); Phosphorus 2.1 mg/dL (2.7-4.5); Potassium 4.4 mmol/L (3.3-5.1); Sodium 142 mmol/L (135-145); Total Protein 5.7 g/dL (6.5-8.0)
[2024-10-09] MEDS: Magnesium Sulfate/D5W 1 GM/100 ML PIGGYBACK IV (06:18)
--- NOTE | 2024-10-09 06:39 | HO.SKINPHOTO ---
Location: Sacrococcygeal Category: PI
[2024-10-09 07:51] LABS: Glucose, Whole Blood 168 mg/dL (60-115)
[2024-10-09] MEDS: Insulin Lispro 100 UNIT/ML 3 ML VIAL SUBCUT ×3 (07:59→21:03)
[2024-10-09] MEDS: polyethylene glycoL 3350 17 GM POWD.PACK PO (07:59)
[2024-10-09] MEDS: Albumin Human 25 % 50 ML 100 ML IV ×2 (08:00→09:47)
[2024-10-09] MEDS: Albumin Human 25 % 100 ML IV ×3 (10:13→21:04)
[2024-10-09 10:22] LABS: Vancomycin Random 18.2 mcg/mL (15-20)
--- NOTE | 2024-10-09 10:29 | HE.PHANOTE ---
RE: vanco Creatinine improved, got a level that came back at 18.2, increased dose to 1250mg Q24H with predicted trough of 13.1 mg/L, AUC of 476mg/L. Next level to be drawn 10/11 @1800
--- NOTE | 2024-10-09 11:12 | P.PNCC_ITS ---
Subjective Subjective Date of Service: 10/09/24 Interval History: 69-year-old gentleman with underlying history of diabetes mellitus, CKD, hypertension, prior ESBL E coli admitted on 10/07/2024 with septic shock of unclear etiology with poor response to initial IV fluid resuscitation requiring pressor support. Patient started on broad-spectrum antibiotics and admitted to the intensive care unit. No events overnight. Continues to require pressor support. Critical Care Time (minutes): 45 Physical Exam 2 Vital Signs: Vital Signs: Last Vital Signs Temp 96.9 F 10/09/24 08:00 Pulse 99 10/09/24 08:00 Resp 11 L 10/09/24 08:00 BP 100/52 L 10/09/24 08:00 Pulse Ox 96 10/09/24 08:00 O2 Del Method Room Air 10/09/24 08:00 O2 Flow Rate 96 10/08/24 01:00 BMI result Body Mass Index 29.0 Objective Data Labs 10/09/24 04:50 10/09/24 04:50 Labs: Laboratory Results - last 24 hr 10/08/24 10/08/24 10/08/24 11:14 16:22 19:00 WBC RBC Hgb Hct MCV MCH MCHC RDW Plt Count MPV Immature Gran % (Auto) Neut % (Auto) Lymph % (Auto) [place] % (Auto) Eos % (Auto) Baso % (Auto) Lymph # (Auto) [place] # (Auto) Eos # (Auto) Baso # (Auto) Abs Immat Gran (auto) Absolute Neuts (auto) Absolute Nucleated RBC Nucleated RBC % (auto) VBG pH VBG pCO2 VBG pO2 VBG HCO3 VBG O2 Saturation VBG Base Excess Sodium Potassium Chloride Carbon Dioxide Anion Gap BUN Creatinine Estim Creat Clear Calc Estimated GFR POC Glucose 171 H 170 H Random Glucose Calcium Phosphorus Magnesium Total Bilirubin AST ALT Alkaline Phosphatase Total Protein Albumin Random Vancomycin 14.8 L 10/08/24 10/09/24 10/09/24 20:43 04:50 04:53 WBC 11.3 H RBC 3.92 L Hgb 11.6 L Hct 34.7 L MCV 88.5 MCH 29.6 MCHC 33.4 RDW 16.4 H Plt Count 268 MPV 12.1 Immature Gran % (Auto) 0.4 Neut % (Auto) 75.7 H Lymph % (Auto) 13.3 L [place] % (Auto) 8.4 Eos % (Auto) 1.8 Baso % (Auto) 0.4 Lymph # (Auto) 1.5 [place] # (Auto) 1.0 Eos # (Auto) 0.2 Baso # (Auto) 0.1 Abs Immat Gran (auto) 0.05 H Absolute Neuts (auto) 8.5 H Absolute Nucleated RBC 0.000 Nucleated RBC % (auto) 0.0 VBG pH 7.52 H VBG pCO2 29 VBG pO2 54 VBG HCO3 24 VBG O2 Saturation 88.0 VBG Base Excess 2.3 Sodium 142 Potassium 4.4 Chloride 112 H Carbon Dioxide 21 L Anion Gap 13 BUN 27 H Creatinine 0.91 Estim Creat Clear Calc 81.9 Estimated GFR > 60 POC Glucose 157 H Random Glucose 163 H Calcium 8.8 Phosphorus 2.1 L Magnesium 1.5 L Total Bilirubin 0.5 AST 32 ALT 7 Alkaline Phosphatase 35 L Total Protein 5.7 L Albumin 3.0 L Random Vancomycin 10/09/24 10/09/24 07:42 09:55 WBC RBC Hgb Hct MCV MCH MCHC RDW Plt Count MPV Immature Gran % (Auto) Neut % (Auto) Lymph % (Auto) [place] % (Auto) Eos % (Auto) Baso % (Auto) Lymph # (Auto) [place] # (Auto) Eos # (Auto) Baso # (Auto) Abs Immat Gran (auto) Absolute Neuts (auto) Absolute Nucleated RBC Nucleated RBC % (auto) VBG pH VBG pCO2 VBG pO2 VBG HCO3 VBG O2 Saturation VBG Base Excess Sodium Potassium Chloride Carbon Dioxide Anion Gap BUN Creatinine Estim Creat Clear Calc Estimated GFR POC Glucose 168 H Random Glucose Calcium Phosphorus Magnesium Total Bilirubin AST ALT Alkaline Phosphatase Total Protein Albumin Random Vancomycin 18.2 Microbiology Microbiology Results: Microbiology 10/07/24 14:29 Blood - Venous Blood Culture - Preliminary No growth after 24 hours. 10/07/24 14:29 Blood - Venous Blood Culture - Preliminary No growth after 24 hours. Progress Note: A&P Assessment and plan (1) Diabetes mellitus: Status: Acute (2) Sepsis: Status: Acute (3) DAVINA (acute kidney injury): Status: Acute Plan Assessment: 69-year-old gentleman with underlying diabetes mellitus and hypotension admitted with septic shock with unclear source requiring pressor support. Plan: Neuro: No acute issues. Cardiac: Septic shock, continue to titrate off pressor support as tolerated. Pulmonary: No acute issues. Renal: Acute kidney injury, likely secondary to ATN from septic shock, improving. Non oliguric. Continue to monitor renal indices and urine output. Endo: No acute issues. GI: No acute issues. ID: Septic shock with unclear source, continue broad-spectrum antibiotics. Cultures are pending. Heme/Onc: No acute issues. Psych: No acute issues. Miscellaneous: No acute issues. Prophylaxis: Heparin Diet: Diabetic Critical care time spent: 45 minutes Quality Stroke Does the patient have a stroke diagnosis?: No VTE Prior VTE?: No VTE Risk Level:: Medical - moderate - high VTE Device Contraindication: Treatment Not Indicated VTE Drug Contraindication: N/A - Med Ordered
[2024-10-09 12:23] LABS: Glucose, Whole Blood 142 mg/dL (60-115)
[2024-10-09] MEDS: Sodium,Potassium Phosphates POWD.PACK 2 PACKET PO (13:22)
[2024-10-09] MEDS: Norepinephrine Bitartrate/D5W 8 MG/250 ML PLAST..BAG 9.43 MG IVCONT (16:33)
[2024-10-09 17:14] LABS: Glucose, Whole Blood 168 mg/dL (60-115)
[2024-10-09] MEDS: oxyCODONE HCl Immed Release 5 MG TABLET PO (17:17)
[2024-10-09] MEDS: vancomycin HCL 1,250 MG in 0.9 % Sodium Chloride 250 ML 166.67 MG IV (19:33)
[2024-10-09 20:57] LABS: Glucose, Whole Blood 159 mg/dL (60-115)
[2024-10-09] MEDS: Latanoprost 0.005 % Ophth Sol 2.5 ML DROPS 1 DROP EYE-BOTH (22:05)
[2024-10-09] MEDS: Lactated Ringers 500 ML 250 ML IV (22:17)
[2024-10-10] VITALS (23 sets, daily range): BP systolic 89–121; BP diastolic 51–78; PULSE 65–122; RESP 15–28; TEMP 36.2–37.7; O2SAT 89–97; BMI 28.0
[2024-10-10] MEDS: Heparin Sodium,Porcine 5,000 UNIT/ML VIAL 5000 UNIT SUBCUT ×3 (03:04→18:27)
[2024-10-10] MEDS: Albumin Human 25 % 100 ML IV (03:05)
[2024-10-10] MEDS: Meropenem 1 GM VIAL IVPUSH ×3 (04:23→18:34)
[2024-10-10] MEDS: Lactated Ringers 1,000 ML 100 ML IVCONT ×2 (04:25→14:00)
[2024-10-10 04:44] LABS: VBG Base Excess 1.7 mmol/L; VBG HCO3 24 mmol/L (22-26); VBG pCO2 32 mmHg; VBG pH 7.48 (7.32-7.43); VBG pO2 31 mmHg
[2024-10-10 04:56] LABS: MANUAL DIFF FLAG NO
[2024-10-10 04:58] LABS: Basophils Absolute Auto 0.1 X10*3/uL (0.0-0.2); Basophils Percent Auto 0.5 % (0-2); Eosinophils Absolute Auto 0.2 X10*3/uL (0.0-0.4); Hematocrit 28.5 % (42.0-52.0); Hemoglobin 9.7 g/dl (14.0-18.0); Imm Gran Abs Auto 0.04 X10*3/uL (0.00-0.03); Imm Gran Pct Auto 0.4 % (0.0-0.4); Lymphocytes Absolute Auto 1.6 X10*3/uL (1.2-4.9); Mean Corpuscular Hemoglobin 29.8 pg (27.0-33.0); Mean Corpuscular Volume 87.7 fL (80.0-98.0); Mean Platelet Volume 11.7 fL (9.4-12.4); Monocytes Absolute Auto 0.7 X10*3/uL (0.1-1.2); Monocytes Percent Auto 6.9 % (2-11); Neutrophils Absolute Auto 8.1 x10*3/uL (2.0-8.3); Neutrophils Percent Auto 75.2 % (45-73); Platelet Count 271 X10*3/uL (160-400); Red Blood Count 3.25 X10*6/uL (4.60-5.80); Red Cell Distribution Width 16.1 % (11.0-16.0); White Blood Count 10.7 X10*3/uL (4.8-10.8)
[2024-10-10 05:14] LABS: Albumin Level 4.3 g/dL (3.5-5.0); Anion Gap 18 (12-20); Blood Urea Nitrogen 19 mg/dL (9-16); Calcium 9.5 mg/dL (8.4-10.2); Carbon Dioxide 23 mmol/L (22-29); Chloride 108 mmol/L (96-108); Creatinine Clr Calc Pharmacy 82.4; Estimated Glomerular Filt Rate > 60; Glucose Random 186 mg/dL (60-115); Magnesium 1.5 mg/dL (1.6-2.6); Phosphorus 1.9 mg/dL (2.7-4.5); Potassium 4.5 mmol/L (3.3-5.1); Sodium 144 mmol/L (135-145)
[2024-10-10] MEDS: Magnesium Sulfate/H2O 2 GM/50 ML PIGGYBACK IV (05:53)
[2024-10-10] MEDS: Potassium Phosphate/NS 15 MMOL/250 ML PLAST..BAG 62.5 MMOL IV ×2 (05:53→10:03)
[2024-10-10] MEDS: oxyCODONE HCl Immed Release 5 MG TABLET 10 MG PO ×3 (05:58→20:11)
[2024-10-10 06:43] LABS: Venous Blood Gas Refer to POC result
--- NOTE | 2024-10-10 07:16 | PC.NURSE ---
Critical Care Nursing Note? Assumed care at 1900, patient alert and oriented. Patient with minimal urine output,Damaris Turner GLASS CHECKER notified. 500 ml LR bolus administered over 2 hours, at 0400 patient was started on maintenance fluids. Patient administered prn pain medication see, SEP.
[2024-10-10 07:34] LABS: Glucose, Whole Blood 177 mg/dL (60-115)
[2024-10-10] MEDS: Insulin Lispro 100 UNIT/ML 3 ML VIAL SUBCUT ×3 (08:09→16:45)
[2024-10-10] MEDS: 0.9 % Sodium Chloride Flush 3 ML SYRINGE IVFLUSH ×2 (08:09→16:46)
--- NOTE | 2024-10-10 10:18 | PM.CCPN ---
Subjective Subjective Date of Service: 10/10/24 Interval History: 69-year-old gentleman with underlying history of diabetes mellitus, CKD, hypertension, prior ESBL E coli admitted on 10/07/2024 with septic shock of unclear etiology with poor response to initial IV fluid resuscitation requiring pressor support. Patient started on broad-spectrum antibiotics and admitted to the intensive care unit. No events overnight. Continues to require pressor support. Critical Care Time (minutes): 45 Physical Exam Vital Signs: Vital Signs: Last Vital Signs Temp 97.2 F 10/10/24 08:00 Pulse 113 H 10/10/24 09:58 Resp 26 H 10/10/24 09:58 BP 100/66 10/10/24 09:58 Pulse Ox 91 L 10/10/24 09:58 O2 Del Method Nasal Cannula 10/10/24 09:58 O2 Flow Rate 2 10/10/24 09:58 BMI result Body Mass Index 28.0 Const: General: no acute distress, alert and awake Eyes: Sclerae: sclerae normal EOM: EOMs intact bilaterally Neck: Neck: Yes no lymphadenopathy, Yes trachea midline and Yes supple Resp: Effort & Inspection: normal respiratory effort and no respiratory distress Auscultation: clear to auscultation bilaterally Cardio: Rate: tachycardic Rhythm: regular rhythm Heart sounds: no gallops, no murmurs and no rubs GI: Palpation (GI): Soft to palpation and Other GI palpation findings present ( Nontender) Auscultation: normal bowel sounds Extrem: General: Yes no pedal edema, No clubbing and No cyanosis Objective Data Labs 10/10/24 04:36 10/10/24 04:36 Labs: Laboratory Results - last 24 hr 10/09/24 10/09/24 10/09/24 09:55 12:00 17:07 WBC RBC Hgb Hct MCV MCH MCHC RDW Plt Count MPV Immature Gran % (Auto) Neut % (Auto) Lymph % (Auto) [place] % (Auto) Eos % (Auto) Baso % (Auto) Lymph # (Auto) [place] # (Auto) Eos # (Auto) Baso # (Auto) Abs Immat Gran (auto) Absolute Neuts (auto) Absolute Nucleated RBC Nucleated RBC % (auto) VBG pH VBG pCO2 VBG pO2 VBG HCO3 VBG O2 Saturation VBG Base Excess Sodium Potassium Chloride Carbon Dioxide Anion Gap BUN Creatinine Estim Creat Clear Calc Estimated GFR POC Glucose 142 H 168 H Random Glucose Calcium Phosphorus Magnesium Albumin Random Vancomycin 18.2 10/09/24 10/10/24 10/10/24 20:53 04:36 04:39 WBC 10.7 RBC 3.25 L Hgb 9.7 L Hct 28.5 L MCV 87.7 MCH 29.8 MCHC 34.0 RDW 16.1 H Plt Count 271 MPV 11.7 Immature Gran % (Auto) 0.4 Neut % (Auto) 75.2 H Lymph % (Auto) 15.0 L [place] % (Auto) 6.9 Eos % (Auto) 2.0 Baso % (Auto) 0.5 Lymph # (Auto) 1.6 [place] # (Auto) 0.7 Eos # (Auto) 0.2 Baso # (Auto) 0.1 Abs Immat Gran (auto) 0.04 H Absolute Neuts (auto) 8.1 Absolute Nucleated RBC 0.000 Nucleated RBC % (auto) 0.0 VBG pH 7.48 H VBG pCO2 32 VBG pO2 31 VBG HCO3 24 VBG O2 Saturation 49.0 VBG Base Excess 1.7 Sodium 144 Potassium 4.5 Chloride 108 Carbon Dioxide 23 Anion Gap 18 BUN 19 H Creatinine 0.89 Estim Creat Clear Calc 82.4 Estimated GFR > 60 POC Glucose 159 H Random Glucose 186 H Calcium 9.5 D Phosphorus 1.9 L Magnesium 1.5 L Albumin 4.3 Random Vancomycin 10/10/24 07:24 WBC RBC Hgb Hct MCV MCH MCHC RDW Plt Count MPV Immature Gran % (Auto) Neut % (Auto) Lymph % (Auto) [place] % (Auto) Eos % (Auto) Baso % (Auto) Lymph # (Auto) [place] # (Auto) Eos # (Auto) Baso # (Auto) Abs Immat Gran (auto) Absolute Neuts (auto) Absolute Nucleated RBC Nucleated RBC % (auto) VBG pH VBG pCO2 VBG pO2 VBG HCO3 VBG O2 Saturation VBG Base Excess Sodium Potassium Chloride Carbon Dioxide Anion Gap BUN Creatinine Estim Creat Clear Calc Estimated GFR POC Glucose 177 H Random Glucose Calcium Phosphorus Magnesium Albumin Random Vancomycin Microbiology Microbiology Results: Microbiology 10/07/24 14:29 Blood - Venous Blood Culture - Preliminary No growth after 48 hours. 10/07/24 14:29 Blood - Venous Blood Culture - Preliminary No growth after 48 hours. Progress Note: A&P Assessment and plan (1) DAVINA (acute kidney injury): Status: Acute (2) Sepsis: Status: Acute (3) Diabetes mellitus: Status: Acute Plan Assessment: 69-year-old gentleman with underlying diabetes mellitus and hypotension admitted with septic shock with unclear source requiring pressor support. Plan: Neuro: No acute issues. Cardiac: Septic shock, continue to titrate off pressor support as tolerated. Pulmonary: No acute issues. Renal: Acute kidney injury, likely secondary to ATN from septic shock, improving. Non oliguric. Continue to monitor renal indices and urine output. Endo: No acute issues. Underlying diabetes mellitus, continue sliding scale insulin. GI: No acute issues. ID: Septic shock with unclear source, continue broad-spectrum antibiotics. Cultures are negative to date. Leukocytosis is improving. Heme/Onc: No acute issues. Psych: No acute issues. Miscellaneous: No acute issues. Prophylaxis: Heparin Diet: Diabetic Critical care time spent: 45 minutes Quality Stroke Does the patient have a stroke diagnosis?: No VTE Prior VTE?: No VTE Risk Level:: Medical - moderate - high VTE Device Contraindication: Treatment Not Indicated VTE Drug Contraindication: N/A - Med Ordered
[2024-10-10 11:28] LABS: Glucose, Whole Blood 156 mg/dL (60-115)
[2024-10-10] MEDS: Norepinephrine Bitartrate/D5W 8 MG/250 ML PLAST..BAG 11 MG IVCONT (14:00)
[2024-10-10 16:36] LABS: Glucose, Whole Blood 166 mg/dL (60-115)
--- NOTE | 2024-10-10 18:49 | HO.SKINPHOTO ---
Location: porterior right ear Category:open area Stage: Length: Width: Depth: cm
--- NOTE | 2024-10-10 19:26 | PC.NURSE ---
Neuro: Alert and oriented x4, vague at times,? Cardiac: ST, unable to titrate Levophed due to low MAP 60-70?s Resp: patient Desats when sleeping, NC applied but patient removed and refused to reapply, 84-88% on RA, recuperates fast when woken up, goes to 92%. GI/: attempted to feed patient ate one spoonful of ice cream and one of pudding, proceeded to vomit 100-150ML yellow emesis,? MD aware.? Integumentary/Musculoskeletal: Coccyx pressure injury noted, applied barrier cream d/t incontinent of stool, turn and reposition every 2hours to maintain skin integrity? Infection control: contact precautions for ESBL in urine
[2024-10-10] MEDS: Latanoprost 0.005 % Ophth Sol 2.5 ML DROPS 1 DROP EYE-BOTH (20:18)
[2024-10-10] MEDS: vancomycin HCL 1,250 MG in 0.9 % Sodium Chloride 250 ML 166 MG IV (20:22)
[2024-10-10 21:14] LABS: Glucose, Whole Blood 159 mg/dL (60-115)
[2024-10-10] MEDS: Calcium Carbonate 750 MG TAB.CHEW PO (21:54)
[2024-10-11] VITALS (31 sets, daily range): BP systolic 78–117; BP diastolic 42–77; PULSE 65–115; RESP 12–30; TEMP 35.8–36.9; O2SAT 90–98; BMI 28.3
[2024-10-11] MEDS: 0.9 % Sodium Chloride Flush 3 ML SYRINGE IVFLUSH ×4 (00:05→20:58)
[2024-10-11] MEDS: Heparin Sodium,Porcine 5,000 UNIT/ML VIAL 5000 UNIT SUBCUT ×3 (02:08→17:11)
[2024-10-11] MEDS: Meropenem 1 GM VIAL IVPUSH ×3 (02:08→17:11)
[2024-10-11] MEDS: oxyCODONE HCl Immed Release 5 MG TABLET 10 MG PO ×4 (02:08→19:52)
[2024-10-11 05:25] LABS: VBG Base Excess 2.8 mmol/L; VBG HCO3 22 mmol/L (22-26); VBG pCO2 22 mmHg; VBG pH 7.61 (7.32-7.43); VBG pO2 60 mmHg
[2024-10-11 05:36] LABS: Venous Blood Gas Refer to POC result
[2024-10-11 05:41] LABS: MANUAL DIFF FLAG NO
[2024-10-11 05:43] LABS: Basophils Absolute Auto 0.1 X10*3/uL (0.0-0.2); Basophils Percent Auto 0.5 % (0-2); Eosinophils Percent Auto 0.2 % (0-4); Hematocrit 28.7 % (42.0-52.0); Hemoglobin 10.1 g/dl (14.0-18.0); Imm Gran Abs Auto 0.06 X10*3/uL (0.00-0.03); Imm Gran Pct Auto 0.6 % (0.0-0.4); Lymphocytes Absolute Auto 1.1 X10*3/uL (1.2-4.9); Lymphocytes Percent Auto 10.1 % (20-40); Mean Corpuscular HGB Conc 35.2 g/dl (31.0-36.0); Mean Corpuscular Hemoglobin 30.1 pg (27.0-33.0); Mean Corpuscular Volume 85.7 fL (80.0-98.0); Mean Platelet Volume 11.5 fL (9.4-12.4); Monocytes Absolute Auto 0.9 X10*3/uL (0.1-1.2); Monocytes Percent Auto 7.9 % (2-11); Neutrophils Absolute Auto 8.7 x10*3/uL (2.0-8.3); Neutrophils Percent Auto 80.7 % (45-73); Platelet Count 263 X10*3/uL (160-400); Red Blood Count 3.35 X10*6/uL (4.60-5.80); Red Cell Distribution Width 15.9 % (11.0-16.0); White Blood Count 10.8 X10*3/uL (4.8-10.8)
[2024-10-11 06:00] LABS: Alanine Aminotransferase 110 U/L (0-40); Albumin Level 3.4 g/dL (3.5-5.0); Alkaline Phosphatase 33 U/L (39-117); Anion Gap 17 (12-20); Aspartate Amino Transferase 530 U/L (5-37); Bilirubin Total 0.8 mg/dL (0.0-1.0); Blood Urea Nitrogen 19 mg/dL (9-16); Calcium 8.6 mg/dL (8.4-10.2); Carbon Dioxide 20 mmol/L (22-29); Chloride 111 mmol/L (96-108); Creatinine Clr Calc Pharmacy 78.5; Estimated Glomerular Filt Rate > 60; Glucose Random 162 mg/dL (60-115); Magnesium 1.8 mg/dL (1.6-2.6); Phosphorus 2.9 mg/dL (2.7-4.5); Potassium 4.2 mmol/L (3.3-5.1); Sodium 144 mmol/L (135-145); Total Protein 5.5 g/dL (6.5-8.0)
[2024-10-11 07:19] LABS: Glucose, Whole Blood 147 mg/dL (60-115)
[2024-10-11] MEDS: polyethylene glycoL 3350 17 GM POWD.PACK PO (07:40)
--- NOTE | 2024-10-11 08:41 | P.CDIM_ITS ---
PROVIDER RESPONSE TEXT: To clarify, the appropriate diagnosis supported by the clinical indicators: Pressure Injury Stage 1 sacrococcygeal: suspected QUERY TEXT: PHYSICIAN'S DOCUMENTATION REQUEST Date of Query: 10/11/2024 08:16 AM EDT Patient Name: Carlos Cabrera Admit Date: 10/07/2024 Dear Jose F Mcduffie MD, A review of the medical record indicates additional documentation may be needed. Please review below and update the documentation accordingly. Clinical Indicators: Wound care nursing assessment notes: Pressure injury Stage 1 sacrococcygeal. Barrier cream applied. Based on the above, could you please provide further information regarding the ulcer/wound/injury: Pressure Injury Stage 1 sacrococcygeal possible, suspected, probable, cannot rule out etc. Other specified Please specify the location and laterality of the ulcer/wound Other (explain) Clinically unable to determine (explain) Thank you, Brisa Deras, CCS, CDIS Use of terms such as suspected, likely, concern for, or probable (associated with a specific diagnosi s that is being evaluated, monitored, or treated as if it exists) are acceptable and can be coded in the inpatient se tting, when documented at the time of discharge. Please use your independent medical judgment in providing your response. THIS QUERY IS PART OF THE PERMANENT MEDICAL RECORD
--- NOTE | 2024-10-11 09:50 | P.PNCC_ITS ---
Subjective Subjective Date of Service: 10/11/24 Interval History: 69-year-old gentleman with underlying history of diabetes mellitus, CKD, hypertension, prior ESBL E coli admitted on 10/07/2024 with septic shock of unclear etiology with poor response to initial IV fluid resuscitation requiring pressor support. Patient started on broad-spectrum antibiotics and admitted to the intensive care unit. Night with poor tolerance of p.o. intake and rising transaminases. Now requiring supplemental oxygen to maintain normal oximetry. Continues to require pressor support. Critical Care Time (minutes): 45 Physical Exam 2 Vital Signs: Vital Signs: Last Vital Signs Temp 98.5 F 10/11/24 08:00 Pulse 106 H 10/11/24 09:00 Resp 22 H 10/11/24 09:00 BP 98/63 10/11/24 09:00 Pulse Ox 95 10/11/24 09:00 O2 Del Method Aerosol Mask 10/11/24 09:00 O2 Flow Rate 2 10/11/24 09:00 BMI result Body Mass Index 28.3 Const: General: no acute distress, alert and awake Eyes: Sclerae: sclerae normal EOM: EOMs intact bilaterally Neck: Neck: Yes no lymphadenopathy, Yes trachea midline and Yes supple Resp: Effort & Inspection: normal respiratory effort and no respiratory distress Auscultation: clear to auscultation bilaterally Cardio: Rate: tachycardic Rhythm: regular rhythm Heart sounds: no gallops, no murmurs and no rubs GI: Palpation (GI): Soft to palpation and Other GI palpation findings present ( Nontender) Auscultation: normal bowel sounds Extrem: General: Yes no pedal edema, No clubbing and No cyanosis Objective Data Labs 10/11/24 05:13 10/11/24 05:13 Labs: Laboratory Results - last 24 hr 10/10/24 10/10/24 10/10/24 11:16 16:33 21:11 WBC RBC Hgb Hct MCV MCH MCHC RDW Plt Count MPV Immature Gran % (Auto) Neut % (Auto) Lymph % (Auto) [place] % (Auto) Eos % (Auto) Baso % (Auto) Lymph # (Auto) [place] # (Auto) Eos # (Auto) Baso # (Auto) Abs Immat Gran (auto) Absolute Neuts (auto) Absolute Nucleated RBC Nucleated RBC % (auto) VBG pH VBG pCO2 VBG pO2 VBG HCO3 VBG O2 Saturation VBG Base Excess Sodium Potassium Chloride Carbon Dioxide Anion Gap BUN Creatinine Estim Creat Clear Calc Estimated GFR POC Glucose 156 H 166 H 159 H Random Glucose Calcium Phosphorus Magnesium Total Bilirubin AST ALT Alkaline Phosphatase Total Protein Albumin 10/11/24 10/11/24 10/11/24 05:13 05:21 07:16 WBC 10.8 RBC 3.35 L Hgb 10.1 L Hct 28.7 L MCV 85.7 MCH 30.1 MCHC 35.2 RDW 15.9 Plt Count 263 MPV 11.5 Immature Gran % (Auto) 0.6 H Neut % (Auto) 80.7 H Lymph % (Auto) 10.1 L [place] % (Auto) 7.9 Eos % (Auto) 0.2 Baso % (Auto) 0.5 Lymph # (Auto) 1.1 L [place] # (Auto) 0.9 Eos # (Auto) 0.0 Baso # (Auto) 0.1 Abs Immat Gran (auto) 0.06 H Absolute Neuts (auto) 8.7 H Absolute Nucleated RBC 0.000 Nucleated RBC % (auto) 0.0 VBG pH 7.61 H* VBG pCO2 22 VBG pO2 60 VBG HCO3 22 VBG O2 Saturation 94.0 VBG Base Excess 2.8 Sodium 144 Potassium 4.2 Chloride 111 H Carbon Dioxide 20 L Anion Gap 17 BUN 19 H Creatinine 0.94 Estim Creat Clear Calc 78.5 Estimated GFR > 60 POC Glucose 147 H Random Glucose 162 H Calcium 8.6 D Phosphorus 2.9 Magnesium 1.8 Total Bilirubin 0.8 AST 530 H ALT 110 H Alkaline Phosphatase 33 L Total Protein 5.5 L Albumin 3.4 L Microbiology Microbiology Results: Microbiology 10/07/24 14:29 Blood - Venous Blood Culture - Preliminary No growth after 48 hours. 10/07/24 14:29 Blood - Venous Blood Culture - Preliminary No growth after 48 hours. Progress Note: A&P Assessment and plan (1) Transaminitis: Status: Acute (2) Acute respiratory failure with hypoxia: Status: Acute (3) Diabetes mellitus: Status: Acute (4) DAVINA (acute kidney injury): Status: Acute (5) Sepsis: Status: Acute Plan Assessment: 69-year-old gentleman with underlying diabetes mellitus and hypotension admitted with septic shock with unclear source requiring pressor support. Plan: Neuro: No acute issues. Cardiac: Septic shock, continue to titrate off pressor support as tolerated. Pulmonary: Acute respiratory failure with hypoxia, continue to titrate off supplemental oxygen as tolerated. CT chest is pending. Renal: Acute kidney injury, likely secondary to ATN from septic shock, improving. Non oliguric. Continue to monitor renal indices and urine output. Endo: No acute issues. Underlying diabetes mellitus, continue sliding scale insulin. GI: Transaminitis with poor p.o. tolerance. Possible ileus associated with gastroparesis versus SBO. Will repeat CT abdomen. ID: Septic shock with unclear source, continue broad-spectrum antibiotics. Cultures are negative to date. Leukocytosis is improving. Heme/Onc: No acute issues. Psych: No acute issues. Miscellaneous: No acute issues. Prophylaxis: Heparin Diet: Diabetic Critical care time spent: 45 minutes Quality Stroke Does the patient have a stroke diagnosis?: No VTE Prior VTE?: No VTE Risk Level:: Medical - moderate - high VTE Device Contraindication: Treatment Not Indicated VTE Drug Contraindication: N/A - Med Ordered
[2024-10-11] MEDS: iohexoL 350 MG/ML 75 ML INFUS..BTL 85 ML IV (10:06)
--- NOTE | 2024-10-11 10:46 | MHC.CLN ---
PT REPORTED 60# WT LOSS X3 MONTHS PER MD CURRENT WT 84.5KG PREVIOUS WT 94KG X 1 YEAR AGO PT WITH 10% NONSIGNIFICANT WT LOSS X1 YEAR WITH CHRONIC POOR PO INTAKE. HOWEVER NOTED PT WITH LARGE STOOL BURDEN UPON ADMISSION AND MAY BE CONTRIBUTOR TO POOR PO INTAKE. PT REMAINS BORDERLINE OBESE FOR HT PO INTAKE 40% AVERAGE DISCUSSED AT ROUNDS WITH DIET RX: 2200GRD M/S-APPROPRIATE NSG TO REQUEST VERIFICATION SPECIALIST EVAL PT C/O NAUSEA AND UPSET STOMACH AT TIMES PT RECEIVING MAGIC CUP TID TO PROVIDE 870KCALS, 27G PROTEIN MONITOR PO INTAKE AND ENCOURAGE SUPPLEMENTS SEE ALSO FULL CLINICAL NUTRITION ASSESSMENT
--- NOTE | 2024-10-11 10:51 | MHC.SL.SWA ---
Speech Pathologist Impression: Risk of Aspiration, Pharyngoesophageal Dysphagia Dysphasia Diet Status:DOWNGRADE to NDD1 Liquid Consistency and Strategies for Safe Swallow: Liquid Intake Recommendation: Thin Liquid Intake Strategies: Small Sips No Straws Solid Food Consistency: Dietary Recommendations: Pureed (NDD1) Additional Modifications to Solid Foods: RN notes from 10/10 indicate patient vomited yellow emesis after eating a few bites of food. This a.m. patient seen for bedside dysphagia evaluation in the ICU. Patient was able to feed himself bites of applesauce, sharmila cracker, and sips of water. Patient with slow chewing pattern, otherwise oral and pharyngeal phases deemed functional. Patient tolerated liquids and semi solids without difficulty. After few bites, patient expectorated back up chewed up sharmila cracker with clear phlegm. EMR does indicate hx GERD, patient was ordered chopped/advanced diet at [facility]. [facility] to downgrade diet to PUREE (NDD1) d/t suspicion of esophageal involvement, continue on THIN liquids, pills CRUSHED in PUREE. Patient is recommended GI consult to further investigate. Oral Medication Intake: Crushed with Puree Please contact the pharmacy regarding appropriate crushable or liquid drug formulations that are available whenever modified delivery is recommended. Compensatory Strategies and Precautions to be Taken for Safe Swallow: Sitting Upright (90 deg) Double Swallow No Straw Small Bites and Sips Alternate Liquids/Solids Rate of Ingestion Change Supervision While Eating and Drinking for Safe Swallow: Total Supervision (1:1) Swallowing Recommended Treatments: Compens. Strategy Educat. Recommendation for Speech: Inpatient Speech Therapy Speech Therapy through Rehab Facility Comment: [facility] [facility] will continue to follow daily M-F to monitor tolerance of recommended diet and feeding needs. Plan to evaluate for potential upgrade pending further workup. Frequency/Duration: M-F Date Range for Service Req: Timeline to reassess: Project Management It Specialist Clinican/Clinical Fellow: No Supervisory Statement: I have reviewed and agree with the student/clinical fellow's documentation: N/A Speech Language Pathologist: Ernestina Urena M.A., [facility]
[2024-10-11 11:11] LABS: Glucose, Whole Blood 164 mg/dL (60-115)
--- NOTE | 2024-10-11 14:07 | MHC.CM.PN ---
Pt continues care in ICU: remains on pressor support: Pt from [facility] and will return to complete STR once he is medically stable. Clinical updates remitted to facility. Pt will need BLS transport
[2024-10-11] MEDS: Norepinephrine Bitartrate/D5W 8 MG/250 ML PLAST..BAG 3.14 MG IVCONT (15:15)
[2024-10-11 16:31] LABS: Glucose, Whole Blood 168 mg/dL (60-115)
[2024-10-11] MEDS: Insulin Lispro 100 UNIT/ML 3 ML VIAL SUBCUT (17:11)
--- NOTE | 2024-10-11 17:20 | HO.WOUND ---
Wound Consult: Initial 69yr old?male admitted to [facility] on 10/07/24 - See progress notes and H&P for detailed history.? Wound consult placed for Sacrococcygeal area, heels and right ear.? Patient agreeable to assessment and photo documentation.? Sacrococcygeal Etiology: ?Deep Tissue Injury in Evolution ?Present on Admission Wound Bed: dark purple nonblanchable scattered areas of partial thickness tissue loss - dry desquamation noted Drainage / Odor: scant serosang Edges: ? irregular Rosmery wound: ?red pink hyperpigmentaiton noted - MASD noted - No Induration, Fluctuance or Warmth noted Pain: tenderness and pain reported Goals of Treatment: ? Off Laod Pressure and Triad to allow for moist wound healing and protect from friction and moisture Left Heel Etiology: ?Stage 1 Pressure injury ?Present on Admission Measurements: see charting for detailed measurement Wound Bed: red intact nonblanchable tissue Drainage / Odor: None Edges: ? irregular Rosmery wound: pink No Induration, Fluctuance or Warmth noted Pain: denies Goals of Treatment: Heel Off Loading boots Right Heel Etiology: ?Deep Tissue Injury ?Present on Admission Measurements: see charting for detailed measurement Wound Bed: maroon purple intact nonblanchable tissue Drainage / Odor: None Edges: ? irregular Rosmery wound: pink red No Induration, Fluctuance or Warmth noted Pain: denies Goals of Treatment: Heel Off Loading boots Right Ankle Etiology: ?Deep Tissue Injury ?Present on Admission Measurements: 0.5cm x 0.6cm x 0cm Wound Bed: maroon purple intact nonblanchable tissue Drainage / Odor: None Edges: ? irregular Rosmery wound: pink ? No Induration, Fluctuance or Warmth noted Pain: denies Goals of Treatment: Foam dressing to protect from friction from Sequential boots Right Simental Etiology: ?Unclear etiology ? Measurements: 0.8cm x 0.8cm x 0cm Wound Bed: dark maroon purple intact nonblanchable issue - not consistent location with pressure and no devices noted to the area Drainage / Odor: None Edges: ? well defined Rosmery wound: ?mild swelling noted - right foot swelling noted - No Induration, Fluctuance or Warmth noted Pain: denies Goals of Treatment: Monitor - no topical interventions needed at this time Right Ear Etiology: ?Unclearetiology - provider to assess? Measurements: 3 pin point open areas drinage clear yellow fluid - no fluctuance no boggy wound bed noted- significant pain noted when assessed. Provider to assess and consider imaging. Wound Bed: 3 pin point openings Drainage / Odor: clear yellow Edges: ? macerated Rosmery wound: moist crusted drainage ? No Induration, Fluctuance or Warmth noted Pain: painful to touch Goals of Treatment: Dry dressing for drainage - defer to provider for etiology remain unclear at this time. Bilateral Iliac Crest area bilateral ischium - noted for intact pink blanchable tissue - irregular patterns and matta hyperpigmented tissue - unclear etiology but not consistent with pressure and do not appear to need intervention at this time. Recommendations: 1. Turn and Reposition every 2 hours and as needed for patient comfort.? Use pillows or wedges to support off loading positions. 2. Off Load all bony prominences with use of pillows and heel boots if needed.? Apply Preventative foams where needed. ? 3. Monitor for incontinence and moisture control, use barrier creams when needed for prevention and treatment. 4. Provide adequate and supplemental nutrition.? 5. Continue low air loss mattress. 6. When applicable maintain blood glucose levels per Providers order. Sacrococcygeal - Off Load Pressure with Q2 hr turns and use of pillows - Cleanse with PH balance spray or wipes, pat dry. ?Apply thin layer of Triad to wound bed - only pat and dab no scrub and rub when soiling occurs. Reapply thin layer PRN after each episode of incontinence. Bilateral Heels - Apply skin prep- and heel off loading boots be sure to float heels off of surface of bed. Right Ankle - Apply skin prep - cover with foam dressing peel back and change every 5 days and PRN. Right Ear - Cleanse with Ns moist gauze, pat dry. Apply skin prep cover with dry gauze change daily. Re-consult wound care Nurse for wound deterioration or wound changes.
[2024-10-11 18:47] LABS: Vancomycin Random 18.7 mcg/mL (15-20)
--- NOTE | 2024-10-11 19:05 | HE.PHANOTE ---
RE: VANCO DOSING Trough came back as 18. 7 mg/L which is higher than predicted 15.9 mg/L. Renal function has been stable but concern that level will be supratherapeutic if dose continues as 1250 mg q24h. Dose is reduced to 1000 mg q24h, next trough is scheduled for 10/12/24 @1800.
--- NOTE | 2024-10-11 19:06 | PC.NURSE ---
Assumed care or patient 0700. Pt states 10/10 pain to right shoulder as well as generalized chronic pain. Pain regimen of PRN oxycodone 10mg Q6H effective, pt has increased comfort over the course of this shift. Pt on Levophed gtt, titrated down to 0.02 this shift. MAP goal >65. Pt seen by speech therapy, diet changed to Diabetic pureed, thin liquids without straws. Pt has poor PO intake, recent significant weight loss. RD and MD notified in morning rounds. Pt ate 2 jellos, 1 regular vanilla ice cream, gingerales this shift. Declined food trays. Seen by physical therapy. Pt has had recent decline in mobility. Assisted Pt to sit at edge of bed, see PT note. Pt assisted via slide to Fonseca recliner chair approx 11:30-14:30. Wound nurse saw patient approx 14:30, bed bath provided at this time. High fall precautions in place, pt turned and repositioned Q2H with wedges.
[2024-10-11] MEDS: vancomycin HCL 1,000 MG in 0.9 % Sodium Chloride 250 ML 270 MG IV (19:47)
[2024-10-11 20:35] LABS: Glucose, Whole Blood 150 mg/dL (60-115)
[2024-10-11] MEDS: Latanoprost 0.005 % Ophth Sol 2.5 ML DROPS 1 DROP EYE-BOTH (20:57)
[2024-10-12] VITALS (29 sets, daily range): BP systolic 78–167; BP diastolic 44–94; PULSE 52–101; RESP 12–18; TEMP 36–37.1; O2SAT 92–99; BMI 28.0
[2024-10-12] MEDS: Heparin Sodium,Porcine 5,000 UNIT/ML VIAL 5000 UNIT SUBCUT ×3 (01:58→17:19)
[2024-10-12] MEDS: Meropenem 1 GM VIAL IVPUSH ×3 (01:58→17:19)
[2024-10-12] MEDS: oxyCODONE HCl Immed Release 5 MG TABLET 10 MG PO ×4 (02:00→20:31)
[2024-10-12 05:42] LABS: VBG Base Excess 3.6 mmol/L; VBG HCO3 24 mmol/L (22-26); VBG pCO2 24 mmHg; VBG pH 7.59 (7.32-7.43); VBG pO2 128 mmHg
[2024-10-12 05:58] LABS: Venous Blood Gas Refer to POC result
--- NOTE | 2024-10-12 06:12 | PC.NURSE ---
Assumed care at 1900. Upon initial?assessment, patient alert and oriented x4, soft spoken and pleasant. Able to make needs known, PRN medications used to manage pain, see MAR. SR on tele, HR 80s-90s. Levophed gtt infusing per SEP for MAP > 65. Lung sounds diminished in the bases, 2L NC. Abdomen soft and round, poor PO intake despite encouragement. Coudet mcmullen catheter in place, draining clear franco urine, UOP approx 10-30mL/hr, provider aware. Skin warm and dry, various pressure injuries to sacrum and heels, see wound note. Triad applied where appropriate. Patient repositioned Q2HR to promote skin integrity and comfort, bed locked in lowest position, bed alarm on, call jay within reach.?
[2024-10-12 06:17] LABS: Hemoglobin 9.7 g/dl (14.0-18.0)
[2024-10-12 06:18] LABS: NRBC Pct Auto 0.2 /100WBC (0.0-0.2); Neutrophils Percent Auto 64.6 % (45-73); PLT CLUMP 1; SCAN SMEAR FLAG 1
[2024-10-12 06:19] LABS: Basophils Absolute Auto 0.1 X10*3/uL (0.0-0.2); Basophils Percent Auto 0.6 % (0-2); Eosinophils Absolute Auto 0.5 X10*3/uL (0.0-0.4); Eosinophils Percent Auto 6.1 % (0-4); Hematocrit 29.2 % (42.0-52.0); Imm Gran Abs Auto 0.06 X10*3/uL (0.00-0.03); Imm Gran Pct Auto 0.7 % (0.0-0.4); Lymphocytes Absolute Auto 1.6 X10*3/uL (1.2-4.9); MANUAL DIFF FLAG SCAN; Mean Corpuscular HGB Conc 33.2 g/dl (31.0-36.0); Mean Corpuscular Hemoglobin 29.6 pg (27.0-33.0); Mean Platelet Volume 12.4 fL (9.4-12.4); Monocytes Absolute Auto 0.9 X10*3/uL (0.1-1.2); Neutrophils Absolute Auto 5.7 x10*3/uL (2.0-8.3); Red Blood Count 3.28 X10*6/uL (4.60-5.80); Red Cell Distribution Width 16.2 % (11.0-16.0)
[2024-10-12 06:27] LABS: Alanine Aminotransferase 73 U/L (0-40); Albumin Level 3.2 g/dL (3.5-5.0); Alkaline Phosphatase 38 U/L (39-117); Anion Gap 13 (12-20); Aspartate Amino Transferase 154 U/L (5-37); Bilirubin Total 0.6 mg/dL (0.0-1.0); Blood Urea Nitrogen 18 mg/dL (9-16); Calcium 8.6 mg/dL (8.4-10.2); Carbon Dioxide 21 mmol/L (22-29); Chloride 112 mmol/L (96-108); Creatinine Clr Calc Pharmacy 92.9; Estimated Glomerular Filt Rate > 60; Glucose Random 150 mg/dL (60-115); Magnesium 1.7 mg/dL (1.6-2.6); Phosphorus 2.3 mg/dL (2.7-4.5); Potassium 3.9 mmol/L (3.3-5.1); Sodium 142 mmol/L (135-145); Total Protein 5.3 g/dL (6.5-8.0)
[2024-10-12 06:35] LABS: Platelet Count 214 X10*3/uL (160-400); White Blood Count 8.7 X10*3/uL (4.8-10.8)
[2024-10-12 06:41] LABS: SLIDE REVIEW VERIFIED
[2024-10-12 07:01] LABS: Glucose, Whole Blood 141 mg/dL (60-115)
[2024-10-12] MEDS: 0.9 % Sodium Chloride Flush 3 ML SYRINGE IVFLUSH ×2 (08:20→17:19)
[2024-10-12] MEDS: Albumin Human 25 % 100 ML IV ×2 (08:20→14:19)
[2024-10-12] MEDS: polyethylene glycoL 3350 17 GM POWD.PACK PO (08:20)
[2024-10-12] MEDS: Potassium Phosphate/NS 15 MMOL/250 ML PLAST..BAG 62.5 MMOL IV (08:21)
--- NOTE | 2024-10-12 09:38 | P.PNCC_ITS ---
Subjective Subjective Date of Service: 10/12/24 Interval History: 69-year-old gentleman with underlying history of diabetes mellitus, CKD, hypertension, prior ESBL E coli admitted on 10/07/2024 with septic shock of unclear etiology with poor response to initial IV fluid resuscitation requiring pressor support. Patient started on broad-spectrum antibiotics and admitted to the intensive care unit. Chest with right-sided pneumonia. No events overnight. Critical Care Time (minutes): 45 Physical Exam 2 Vital Signs: Vital Signs: Last Vital Signs Temp 96.8 F 10/12/24 08:00 Pulse 62 10/12/24 09:00 Resp 18 10/12/24 09:00 BP 97/55 L 10/12/24 09:00 Pulse Ox 98 10/12/24 09:00 O2 Del Method Nasal Cannula 10/12/24 09:00 O2 Flow Rate 1 10/12/24 09:00 BMI result Body Mass Index 28.0 Const: General: no acute distress, alert and awake Eyes: Sclerae: sclerae normal EOM: EOMs intact bilaterally Neck: Neck: Yes no lymphadenopathy, Yes trachea midline and Yes supple Resp: Effort & Inspection: normal respiratory effort and no respiratory distress Auscultation: clear to auscultation bilaterally Cardio: Rate: regular rate Rhythm: regular rhythm Heart sounds: no gallops, no murmurs and no rubs GI: Palpation (GI): Soft to palpation and Other GI palpation findings present ( Nontender) Auscultation: normal bowel sounds Extrem: General: Yes no pedal edema, No clubbing and No cyanosis Objective Data Labs 10/12/24 05:29 10/12/24 05:29 Labs: Laboratory Results - last 24 hr 10/11/24 10/11/24 10/11/24 11:06 16:28 18:10 WBC RBC Hgb Hct MCV MCH MCHC RDW Plt Count MPV Immature Gran % (Auto) Neut % (Auto) Lymph % (Auto) [place] % (Auto) Eos % (Auto) Baso % (Auto) Lymph # (Auto) [place] # (Auto) Eos # (Auto) Baso # (Auto) Abs Immat Gran (auto) Absolute Neuts (auto) Absolute Nucleated RBC Nucleated RBC % (auto) Smear Tech's Comments VBG pH VBG pCO2 VBG pO2 VBG HCO3 VBG O2 Saturation VBG Base Excess Sodium Potassium Chloride Carbon Dioxide Anion Gap BUN Creatinine Estim Creat Clear Calc Estimated GFR POC Glucose 164 H 168 H Random Glucose Calcium Phosphorus Magnesium Total Bilirubin AST ALT Alkaline Phosphatase Total Protein Albumin Random Vancomycin 18.7 10/11/24 10/12/24 10/12/24 20:31 05:29 05:38 WBC 8.7 RBC 3.28 L Hgb 9.7 L Hct 29.2 L MCV 89.0 MCH 29.6 MCHC 33.2 RDW 16.2 H Plt Count 214 MPV 12.4 Immature Gran % (Auto) 0.7 H Neut % (Auto) 64.6 Lymph % (Auto) 18.0 L [place] % (Auto) 10.0 Eos % (Auto) 6.1 H Baso % (Auto) 0.6 Lymph # (Auto) 1.6 [place] # (Auto) 0.9 Eos # (Auto) 0.5 H Baso # (Auto) 0.1 Abs Immat Gran (auto) 0.06 H Absolute Neuts (auto) 5.7 Absolute Nucleated RBC 0.020 H Nucleated RBC % (auto) 0.2 Smear Tech's Comments VERIFIED VBG pH 7.59 H VBG pCO2 24 VBG pO2 128 VBG HCO3 24 VBG O2 Saturation 100.0 VBG Base Excess 3.6 Sodium 142 Potassium 3.9 Chloride 112 H Carbon Dioxide 21 L Anion Gap 13 BUN 18 H Creatinine 0.79 Estim Creat Clear Calc 92.9 Estimated GFR > 60 POC Glucose 150 H Random Glucose 150 H Calcium 8.6 Phosphorus 2.3 L Magnesium 1.7 Total Bilirubin 0.6 AST 154 H ALT 73 H Alkaline Phosphatase 38 L Total Protein 5.3 L Albumin 3.2 L Random Vancomycin 10/12/24 06:57 WBC RBC Hgb Hct MCV MCH MCHC RDW Plt Count MPV Immature Gran % (Auto) Neut % (Auto) Lymph % (Auto) [place] % (Auto) Eos % (Auto) Baso % (Auto) Lymph # (Auto) [place] # (Auto) Eos # (Auto) Baso # (Auto) Abs Immat Gran (auto) Absolute Neuts (auto) Absolute Nucleated RBC Nucleated RBC % (auto) Smear Tech's Comments VBG pH VBG pCO2 VBG pO2 VBG HCO3 VBG O2 Saturation VBG Base Excess Sodium Potassium Chloride Carbon Dioxide Anion Gap BUN Creatinine Estim Creat Clear Calc Estimated GFR POC Glucose 141 H Random Glucose Calcium Phosphorus Magnesium Total Bilirubin AST ALT Alkaline Phosphatase Total Protein Albumin Random Vancomycin Microbiology Microbiology Results: Microbiology 10/07/24 14:29 Blood - Venous Blood Culture - Preliminary No growth after 48 hours. 10/07/24 14:29 Blood - Venous Blood Culture - Preliminary No growth after 48 hours. Progress Note: A&P Assessment and plan (1) Orthostatic hypotension: Status: Acute (2) Diabetes mellitus: Status: Acute (3) Acute respiratory failure with hypoxia: Status: Acute (4) Pneumonia: Status: Acute Plan Assessment: 69-year-old gentleman with underlying diabetes mellitus and hypotension admitted with septic shock with unclear source requiring pressor support. Plan: Neuro: No acute issues. Cardiac: Septic shock, continue to titrate off pressor support as tolerated. Pulmonary: Acute respiratory failure with hypoxia, continue to titrate off supplemental oxygen as tolerated. CT chest with right-sided pneumonia Renal: Acute kidney injury, likely secondary to ATN from septic shock, resolved. Non oliguric. Continue to monitor renal indices and urine output. Endo: No acute issues. Underlying diabetes mellitus, continue sliding scale insulin. GI: Transaminitis with poor p.o. tolerance, improving. Repeat CT abdomen with no evidence of choledocholithiasis or SBO. ID: Septic shock with likely pulmonic source, continue broad-spectrum antibiotics. Cultures are negative to date. Leukocytosis is improving. Heme/Onc: No acute issues. Psych: No acute issues. Miscellaneous: No acute issues. Prophylaxis: Heparin Diet: Diabetic Critical care time spent: 45 minutes Quality Stroke Does the patient have a stroke diagnosis?: No VTE Prior VTE?: No VTE Risk Level:: Medical - moderate - high VTE Device Contraindication: Treatment Not Indicated VTE Drug Contraindication: N/A - Med Ordered
[2024-10-12] MEDS: Acetaminophen 325 MG TABLET 650 MG PO (10:07)
--- NOTE | 2024-10-12 10:37 | MHC.CLN ---
PT WITH INCREASED NUTRITION RISK R/T PRESSURE INJURIES DISCUSSED AT ROUNDS WITH DIET RX: 2200GRD PUREED-APPROPRIATE PT WITH POOR PO INTAKE CONSUMING ICE CREAM, JELLO AND G'MATT ONLY PT DISLIKES MAGIC CUP WILL TRIAL GELATEIN TID TO PROMOTE WOUND HEALING SUPPLEMENT WILL PROVIDE 480KCALS, 60G PROTEIN MONITOR PO INTAKE AND ENCOURAGE SUPPLEMENTS SEE ALSO FULL CLINICAL NUTRITION ASSESSMENT
[2024-10-12] MEDS: Magnesium Sulfate/H2O 2 GM/50 ML PIGGYBACK IV (11:46)
[2024-10-12 11:54] LABS: Glucose, Whole Blood 166 mg/dL (60-115)
[2024-10-12] MEDS: Insulin Lispro 100 UNIT/ML 3 ML VIAL SUBCUT (12:42)
--- NOTE | 2024-10-12 13:14 | MHC.SL.SWA ---
Speech Pathologist Impression: Risk of Aspiration Due to: Dysphasia Diet Status: Recommend continue diet of PUREE (NDD1) with Thin Liquids, Pills whole or crushed in puree. Liquid Consistency and Strategies for Safe Swallow: Liquid Intake Recommendation: Thin Liquid Intake Strategies: Small Sips No Straws Solid Food Consistency: Dietary Recommendations: Pureed (NDD1) Additional Modifications to Solid Foods: RN notes from 10/10 indicate patient vomited yellow emesis after eating a few bites of food. This a.m. patient seen for bedside dysphagia evaluation in the ICU. Patient was able to feed himself bites of applesauce, sharmila cracker, and sips of water. Patient with slow chewing pattern, otherwise oral and pharyngeal phases deemed functional. Patient tolerated liquids and semi solids without difficulty. After few bites, patient expectorated back up chewed up sharmila cracker with clear phlegm. EMR does indicate hx GERD, patient was ordered chopped/advanced diet at [facility]. WIRED MUSIC OPERATOR to downgrade diet to PUREE (NDD1) d/t suspicion of esophageal involvement, continue on THIN liquids, pills CRUSHED in PUREE. Patient is recommended GI consult to further investigate. Oral Medication Intake: Crushed with Puree Please contact the pharmacy regarding appropriate crushable or liquid drug formulations that are available whenever modified delivery is recommended. Compensatory Strategies and Precautions to be Taken for Safe Swallow: Sitting Upright (90 deg) Liquids from Cup Small Bites and Sips Alternate Liquids/Solids Supervision While Eating and Drinking for Safe Swallow: Total Assistance (1:1) Foods to Avoid: Patient with poor toleration of more solid textures on eval 10/11. Swallowing Recommended Treatments: Compens. Strategy Educat. Recommendation for Speech: Inpatient Speech Therapy Speech Therapy through Rehab Facility Comment: Patient seen at lunch in the ICU. Patient was sleeping, but roused easily, and expressed tentative willingness to try lunch, e.g. I'll eat some jello). Patient had nutritional gelatin on tray, this was presented, with patient taking a few bites, producing a mildly delayed oral phase followed by timely swallow. Patient then declined any more stating that he did not like the taste. RN noted that Patient also has a preference for ice cream, however the Magic Cup is also a food patient rejects ( too sweet ). Patient was also observed drinking from small can of diet jasbir emma, which he did independently as long as the can was positioned well in his Left hand. On sips of jasbir emma, patient produced a timely swallow, no clinical signs of aspiration. After drinking a little over a 1/4 of a can, Patient with c/o upper gi discomfort and stopped. Patient refused all other foods on tray. Diet consistency, at this time, is appropriate due to ?Esophageal/upper GI issues. Patient po intake is very poor, though, and reportedly this has been a concern for several months, with patient evidencing significant weight loss. Patient stated he would attempt nutritional shakes if offered. Recommend continue diet of PUREE (NDD1) with Thin Liquids, Pills whole or crushed in puree. WIRED MUSIC OPERATOR will continue to follow. Frequency/Duration: M-F Date Range for Service Req: Timeline to reassess: Cat Hooker Clinican/Clinical Fellow: No Supervisory Statement: I have reviewed and agree with the student/clinical fellow's documentation: N/A Speech Language Pathologist: Kaleigh Ennis M.A., CCC-WIRED MUSIC OPERATOR
--- NOTE | 2024-10-12 16:10 | MHC.CM.PN ---
Pt continues on a Levophed taper: once it has been d/c'd, pt should be able to transfer to the medical floor in anticipation of a return to [facility]. CM to follow
[2024-10-12 16:38] LABS: Glucose, Whole Blood 102 mg/dL (60-115)
[2024-10-12] MEDS: Norepinephrine Bitartrate/D5W 8 MG/250 ML PLAST..BAG 3.14 MG IVCONT (18:28)
[2024-10-12 18:41] LABS: Vancomycin Random 17.7 mcg/mL (15-20)
--- NOTE | 2024-10-12 18:43 | PC.NURSE ---
Assumed care of patient 0700. A+OxCristina, LUCINDA, follows commands. Pt transported to head CT for 10:30AM. Pt returned to room and sat up in the Fonseca chair 14:30-18:30.
--- NOTE | 2024-10-12 18:56 | HE.PHANOTE ---
RE: VANCO DOSING Trough came back as 17.7 mg/L (predicted to be 15.5 mg/L). Renal function is improving. Continue with dose of 1000 mg q24h, next trough is scheduled for 10/12/24 @1800.
[2024-10-12] MEDS: vancomycin HCL 1,000 MG in 0.9 % Sodium Chloride 250 ML 270 MG IV (19:49)
[2024-10-12] MEDS: Latanoprost 0.005 % Ophth Sol 2.5 ML DROPS 1 DROP EYE-BOTH (20:00)
[2024-10-12 21:14] LABS: Glucose, Whole Blood 113 mg/dL (60-115)
[2024-10-13] VITALS (33 sets, daily range): BP systolic 87–126; BP diastolic 29–92; PULSE 55–90; RESP 12–24; TEMP 36.1–36.6; O2SAT 94–100; BMI 28.6
[2024-10-13] MEDS: Meropenem 1 GM VIAL IVPUSH ×3 (02:30→18:02)
[2024-10-13] MEDS: oxyCODONE HCl Immed Release 5 MG TABLET 10 MG PO ×4 (02:30→20:32)
[2024-10-13] MEDS: Heparin Sodium,Porcine 5,000 UNIT/ML VIAL 5000 UNIT SUBCUT ×3 (02:30→18:03)
[2024-10-13 05:30] LABS: VBG HCO3 25 mmol/L (22-26); VBG pCO2 29 mmHg; VBG pH 7.53 (7.32-7.43); VBG pO2 37 mmHg
[2024-10-13 05:46] LABS: MANUAL DIFF FLAG NO
[2024-10-13 05:54] LABS: Basophils Percent Auto 0.4 % (0-2); Eosinophils Absolute Auto 0.9 X10*3/uL (0.0-0.4); Eosinophils Percent Auto 9.4 % (0-4); Hematocrit 28.2 % (42.0-52.0); Hemoglobin 9.4 g/dl (14.0-18.0); Imm Gran Abs Auto 0.06 X10*3/uL (0.00-0.03); Imm Gran Pct Auto 0.6 % (0.0-0.4); Lymphocytes Absolute Auto 1.7 X10*3/uL (1.2-4.9); Lymphocytes Percent Auto 17.2 % (20-40); Mean Corpuscular HGB Conc 33.3 g/dl (31.0-36.0); Mean Corpuscular Hemoglobin 29.8 pg (27.0-33.0); Mean Corpuscular Volume 89.5 fL (80.0-98.0); Mean Platelet Volume 12.1 fL (9.4-12.4); Monocytes Absolute Auto 1.2 X10*3/uL (0.1-1.2); Monocytes Percent Auto 12.2 % (2-11); NRBC Pct Auto 0.2 /100WBC (0.0-0.2); Neutrophils Absolute Auto 5.8 x10*3/uL (2.0-8.3); Neutrophils Percent Auto 60.2 % (45-73); Platelet Count 250 X10*3/uL (160-400); Red Blood Count 3.15 X10*6/uL (4.60-5.80); Red Cell Distribution Width 16.5 % (11.0-16.0); White Blood Count 9.6 X10*3/uL (4.8-10.8)
[2024-10-13 06:03] LABS: Albumin Level 3.5 g/dL (3.5-5.0); Anion Gap 16 (12-20); Blood Urea Nitrogen 15 mg/dL (9-16); Calcium 8.7 mg/dL (8.4-10.2); Carbon Dioxide 22 mmol/L (22-29); Chloride 109 mmol/L (96-108); Creatinine Clr Calc Pharmacy 103.4; Estimated Glomerular Filt Rate > 60; Glucose Random 117 mg/dL (60-115); Magnesium 2.1 mg/dL (1.6-2.6); Phosphorus 2.7 mg/dL (2.7-4.5); Potassium 4.1 mmol/L (3.3-5.1); Sodium 143 mmol/L (135-145)
[2024-10-13 06:06] LABS: Venous Blood Gas Refer to POC result
[2024-10-13] MEDS: oxyCODONE HCl Immed Release 5 MG TABLET PO ×2 (06:15→23:38)
--- NOTE | 2024-10-13 06:27 | PC.NURSE ---
Assumed care at 1900. Patient alert and oriented x4, soft spoken and pleasant. Able to make needs known. PRN oxycodone and repositioning used for pain control, see MAR. Levophed gtt infusing per SEP for MAP > 65. Poor PO intake continues, patient encouraged to drink fluids. Coudet mcmullen remains?in place, draining light franco urine with some sediment. Bed locked in lowest possible position, patient repositioned Q2HR, bed alarm on, call jay within reach.?
[2024-10-13 07:31] LABS: Glucose, Whole Blood 133 mg/dL (60-115)
[2024-10-13] MEDS: 0.9 % Sodium Chloride Flush 3 ML SYRINGE IVFLUSH ×2 (09:06→15:03)
--- NOTE | 2024-10-13 09:23 | P.CDIM_ITS ---
PROVIDER RESPONSE TEXT: To clarify, the appropriate diagnosis supported by the clinical indicators: Deep tissue injury right heel: probable QUERY TEXT: PHYSICIAN'S DOCUMENTATION REQUEST Date of Query: 10/13/2024 08:59 AM EDT Patient Name: Carlos Cabrera Admit Date: 10/07/2024 Dear Jose F Mcduffie MD, A review of the medical record indicates additional documentation may be needed. Please review below and update the documentation accordingly. Clinical Indicators: Wound care assessment 10/08/24 - Deep tissue injury right heel - present on admission. Maroon purple intact nonblanchable tissue. Off loading boots. Based on the above, could you please provide further information regarding the ulcer/wound/injury: Deep tissue injury right heel possible, probable, suspected etc. Other specified Please specify the location and laterality of the ulcer/wound/injury Other (explain) Clinically unable to determine (explain) Thank you, Brisa Deras, CCS, CDIS Use of terms such as suspected, likely, concern for, or probable (associated with a specific diagnosi s that is being evaluated, monitored, or treated as if it exists) are acceptable and can be coded in the inpatient se tting, when documented at the time of discharge. Please use your independent medical judgment in providing your response. THIS QUERY IS PART OF THE PERMANENT MEDICAL RECORD
--- NOTE | 2024-10-13 09:28 | P.CDIM_ITS ---
PROVIDER RESPONSE TEXT: To clarify, the appropriate diagnosis supported by the clinical indicators: Deep tissue injury right ankle: probable QUERY TEXT: PHYSICIAN'S DOCUMENTATION REQUEST Date of Query: 10/13/2024 09:01 AM EDT Patient Name: Carlos Cabrera Admit Date: 10/07/2024 Dear Jose F Mcduffie MD, A review of the medical record indicates additional documentation may be needed. Please review below and update the documentation accordingly. Clinical Indicators: Wound care assessment notes dated 10/11/24 - Deep tissue injury right ankle, present on admission. Foam dressing to protect from friction from Sequential boots. Based on the above, could you please provide further information regarding the ulcer/wound/injury: Deep tissue injury right ankle suspected, possible, probable, cannot rule out etc. Other specified Please specify the location and laterality of the ulcer/wound/injury Other (explain) Clinically unable to determine (explain) Thank you, Brisa Deras, CCS, CDIS Use of terms such as suspected, likely, concern for, or probable (associated with a specific diagnosi s that is being evaluated, monitored, or treated as if it exists) are acceptable and can be coded in the inpatient se tting, when documented at the time of discharge. Please use your independent medical judgment in providing your response. THIS QUERY IS PART OF THE PERMANENT MEDICAL RECORD
--- NOTE | 2024-10-13 09:46 | PM.CCPN ---
Subjective Subjective Date of Service: 10/13/24 Interval History: 69-year-old gentleman with underlying history of diabetes mellitus, CKD, hypertension, prior ESBL E coli admitted on 10/07/2024 with septic shock of unclear etiology with poor response to initial IV fluid resuscitation requiring pressor support. Patient started on broad-spectrum antibiotics and admitted to the intensive care unit. Chest with right-sided pneumonia. No events overnight. Pressor requirements slowly improving. Critical Care Time (minutes): 45 Physical Exam Vital Signs: Vital Signs: Last Vital Signs Temp 97.0 F 10/13/24 08:00 Pulse 64 10/13/24 09:00 Resp 18 10/13/24 09:00 BP 113/59 L 10/13/24 09:00 Pulse Ox 96 10/13/24 09:00 O2 Del Method Nasal Cannula 10/13/24 09:00 O2 Flow Rate 1 10/13/24 09:00 BMI result Body Mass Index 28.6 Const: General: no acute distress, alert and awake Eyes: Sclerae: sclerae normal EOM: EOMs intact bilaterally Neck: Neck: Yes no lymphadenopathy, Yes trachea midline and Yes supple Resp: Effort & Inspection: normal respiratory effort and no respiratory distress Auscultation: clear to auscultation bilaterally Cardio: Rate: regular rate Rhythm: regular rhythm Heart sounds: no gallops, no murmurs and no rubs GI: Palpation (GI): Soft to palpation and Other GI palpation findings present ( Nontender) Auscultation: normal bowel sounds Extrem: General: Yes no pedal edema, No clubbing and No cyanosis Objective Data Labs 10/13/24 05:22 10/13/24 05:22 Labs: Laboratory Results - last 24 hr 10/12/24 10/12/24 10/12/24 11:49 16:34 18:04 WBC RBC Hgb Hct MCV MCH MCHC RDW Plt Count MPV Immature Gran % (Auto) Neut % (Auto) Lymph % (Auto) [place] % (Auto) Eos % (Auto) Baso % (Auto) Lymph # (Auto) [place] # (Auto) Eos # (Auto) Baso # (Auto) Abs Immat Gran (auto) Absolute Neuts (auto) Absolute Nucleated RBC Nucleated RBC % (auto) VBG pH VBG pCO2 VBG pO2 VBG HCO3 VBG O2 Saturation VBG Base Excess Sodium Potassium Chloride Carbon Dioxide Anion Gap BUN Creatinine Estim Creat Clear Calc Estimated GFR POC Glucose 166 H 102 Random Glucose Calcium Phosphorus Magnesium Albumin Random Vancomycin 17.7 10/12/24 10/13/24 10/13/24 21:10 05:22 05:25 WBC 9.6 RBC 3.15 L Hgb 9.4 L Hct 28.2 L MCV 89.5 MCH 29.8 MCHC 33.3 RDW 16.5 H Plt Count 250 MPV 12.1 Immature Gran % (Auto) 0.6 H Neut % (Auto) 60.2 Lymph % (Auto) 17.2 L [place] % (Auto) 12.2 H Eos % (Auto) 9.4 H Baso % (Auto) 0.4 Lymph # (Auto) 1.7 [place] # (Auto) 1.2 Eos # (Auto) 0.9 H Baso # (Auto) 0.0 Abs Immat Gran (auto) 0.06 H Absolute Neuts (auto) 5.8 Absolute Nucleated RBC 0.020 H Nucleated RBC % (auto) 0.2 VBG pH 7.53 H VBG pCO2 29 VBG pO2 37 VBG HCO3 25 VBG O2 Saturation 64.0 VBG Base Excess 3.0 Sodium 143 Potassium 4.1 Chloride 109 H Carbon Dioxide 22 Anion Gap 16 BUN 15 Creatinine 0.71 Estim Creat Clear Calc 103.4 Estimated GFR > 60 POC Glucose 113 Random Glucose 117 H Calcium 8.7 Phosphorus 2.7 Magnesium 2.1 Albumin 3.5 Random Vancomycin 10/13/24 07:27 WBC RBC Hgb Hct MCV MCH MCHC RDW Plt Count MPV Immature Gran % (Auto) Neut % (Auto) Lymph % (Auto) [place] % (Auto) Eos % (Auto) Baso % (Auto) Lymph # (Auto) [place] # (Auto) Eos # (Auto) Baso # (Auto) Abs Immat Gran (auto) Absolute Neuts (auto) Absolute Nucleated RBC Nucleated RBC % (auto) VBG pH VBG pCO2 VBG pO2 VBG HCO3 VBG O2 Saturation VBG Base Excess Sodium Potassium Chloride Carbon Dioxide Anion Gap BUN Creatinine Estim Creat Clear Calc Estimated GFR POC Glucose 133 H Random Glucose Calcium Phosphorus Magnesium Albumin Random Vancomycin Microbiology Microbiology Results: Microbiology 10/07/24 14:29 Blood - Venous Blood Culture - Final No growth after 5 days. 10/07/24 14:29 Blood - Venous Blood Culture - Final No growth after 5 days. Progress Note: A&P Assessment and plan (1) Sepsis: Status: Acute (2) Pneumonia: Status: Acute (3) Diabetes mellitus: Status: Acute Plan Assessment: 69-year-old gentleman with underlying diabetes mellitus and hypotension admitted with septic shock with unclear source requiring pressor support. Plan: Neuro: No acute issues. Cardiac: Septic shock, improving, continue to titrate off pressor support as tolerated. Pulmonary: Acute respiratory failure with hypoxia, continue to titrate off supplemental oxygen as tolerated. CT chest with right-sided pneumonia. Renal: Acute kidney injury, likely secondary to ATN from septic shock, resolved. Non oliguric. Continue to monitor renal indices and urine output. Endo: No acute issues. Underlying diabetes mellitus, continue sliding scale insulin. GI: Transaminitis with poor p.o. tolerance, improving. Repeat CT abdomen with no evidence of choledocholithiasis or SBO. ID: Septic shock with likely pulmonic source, continue broad-spectrum antibiotics. Cultures are negative to date. Leukocytosis is improving. Heme/Onc: No acute issues. Psych: No acute issues. Miscellaneous: No acute issues. Prophylaxis: Heparin Diet: Diabetic Critical care time spent: 45 minutes Quality Stroke Does the patient have a stroke diagnosis?: No VTE Prior VTE?: No VTE Risk Level:: Medical - moderate - high VTE Device Contraindication: Treatment Not Indicated VTE Drug Contraindication: N/A - Med Ordered
--- NOTE | 2024-10-13 10:06 | MHC.CLN ---
F/U PT WITH INCREASED NUTRITION RISK R/T PRESSURE INJURIES DISCUSSED AT ROUNDS WITH DIET RX: 2200DM PUREED-APPROPRIATE POOR PO INTAKE PT RECEIVING GELATEIN TID TO PROMOTE WOUND HEALING SUPPLEMENT PROVIDES 480KCALS, 60G PROTEIN WITH 100% ACCEPTANCE MONITOR PO INTAKE AND ENCOURAGE SUPPLEMENTS
[2024-10-13] MEDS: polyethylene glycoL 3350 17 GM POWD.PACK PO (10:24)
[2024-10-13 11:29] LABS: Glucose, Whole Blood 109 mg/dL (60-115)
--- NOTE | 2024-10-13 13:47 | MHC.SL.SWA ---
Speech Pathologist Impression: Mild dysphagia d/t weakness, recent episode of difficulty tolerating regular, dry solid consistency Dysphasia Diet Status: Recommend upgrade to NDD2 with extra gravies, thin liquids, Pills whole or crushed in puree. Liquid Consistency and Strategies for Safe Swallow: Liquid Intake Recommendation: Thin Liquid Intake Strategies: Small Sips Solid Food Consistency: Dietary Recommendations: Grnd/Mech Altered (NDD2) Additional Modifications to Solid Foods: GI consult was recommended at time of initial TEACHER assessment to further investigate esophageal function. Oral Medication Intake: Crushed with Puree or whole in puree, as pt prefers Please contact the pharmacy regarding appropriate crushable or liquid drug formulations that are available whenever modified delivery is recommended. Compensatory Strategies and Precautions to be Taken for Safe Swallow: Sitting Upright (90 deg) Liquids from Cup Small Bites and Sips Alternate Liquids/Solids Supervision While Eating and Drinking for Safe Swallow: Total Assistance (1:1) as needed Foods to Avoid: Patient able to advance to moist, ground textures 10/13.. Swallowing Recommended Treatments: Compens. Strategy Educat. Recommendation for Speech: Inpatient Speech Therapy Speech Therapy through Rehab Facility Comment: Pt seen for dysphagia treatment. Pt remains in the ICU for cardiac monitoring. RN consulted, reported pt wasn't eating much. Pt currently on puree diet with thin liquids. Pt trialed with soft, easy to chew solids. O2 sats and respiratory coordination WFL during oral prep phase of swallow, pt showed efficient and timely anterior to posterior transit of bolus upon formulation/manipulation, pharyngeal swallow unremarkable. No overt s/s of aspiration with soft, easy to chew solids. Recc upgrade to NDD2 with extra gravies to moisten foods, thin liquids. RN noted that pt had c/o difficulty with regular, dry solid consistency days ago, which prompted swallow evaluation. Pt denies hx of dysphagia but agreed with diet changes to reduce his risk for aspiration. TEACHER continues to follow, will advance diet as appropriate. Frequency/Duration: M-F Date Range for Service Req: Timeline to reassess: Cobol Developer Clinican/Clinical Fellow: No Supervisory Statement: I have reviewed and agree with the student/clinical fellow's documentation: N/A Speech Language Pathologist: Ciera Singh M.S., CCC-TEACHER
--- NOTE | 2024-10-13 15:14 | MHC.CM.PN ---
Pt continues on pressor support in ICU: to continue plan to taper off. Pt will transfer to the medical floor once this occurs. Pt has been referred back to [facility]. [place] to follow
[2024-10-13 16:36] LABS: Glucose, Whole Blood 158 mg/dL (60-115)
[2024-10-13] MEDS: Insulin Lispro 100 UNIT/ML 3 ML VIAL SUBCUT (17:13)
[2024-10-13] MEDS: Norepinephrine Bitartrate/D5W 8 MG/250 ML PLAST..BAG 1.57 MG IVCONT (18:03)
[2024-10-13 18:43] LABS: Vancomycin Random 18.1 mcg/mL (15-20)
--- NOTE | 2024-10-13 19:43 | PC.NURSE ---
Assumed care 0700 on 10/13/24... Patient A+Ox4, stable, on Levophed at low dose (see MAR), titrated to room air and satting high 90s... Attempts made by MD and RN to titrate levophed off today... ultimately resumed in levophed mid afternoon due to MAPs in 40s... patient asymptomatic with low BP's. Physical Therapy to bedside and exercises performed, then patient transferred to recliner with [facility]. heavy assistance from Physical Therapy, RN,and CCT to transfer. Narciso-mat placed under patient in recliner. Patient continues to have [id number] appetite, refuses most meals, only eats with continuous cueing... only does PT exercises with persistent cueing... Able to make needs known, call light in reach at all times, educated this afternoon on reason for continuous ICU supervision. patient verbalized understanding. Handed off 1900 on 10/13/24.
[2024-10-13] MEDS: Sennosides 8.6 MG TABLET 17.2 MG PO (20:27)
[2024-10-13 21:17] LABS: Glucose, Whole Blood 95 mg/dL (60-115)
[2024-10-13] MEDS: vancomycin HCL 1,000 MG in 0.9 % Sodium Chloride 250 ML 270 MG IV (21:18)
[2024-10-13] MEDS: Latanoprost 0.005 % Ophth Sol 2.5 ML DROPS 1 DROP EYE-BOTH (21:54)
[2024-10-14] VITALS (19 sets, daily range): BP systolic 95–125; BP diastolic 41–88; PULSE 53–90; RESP 10–18; TEMP 35.8–37.1; O2SAT 93–99; BMI 28.7
[2024-10-14] MEDS: 0.9 % Sodium Chloride Flush 3 ML SYRINGE IVFLUSH ×2 (00:04→15:09)
[2024-10-14] MEDS: iohexoL 350 MG/ML 100 ML INFUS..BTL 60 ML IV (00:25)
[2024-10-14] MEDS: Meropenem 1 GM VIAL IVPUSH ×3 (02:20→18:06)
[2024-10-14] MEDS: Heparin Sodium,Porcine 5,000 UNIT/ML VIAL 5000 UNIT SUBCUT ×3 (02:20→18:06)
[2024-10-14] MEDS: oxyCODONE HCl Immed Release 5 MG TABLET 10 MG PO ×2 (02:50→20:10)
[2024-10-14 05:48] LABS: MANUAL DIFF FLAG NO
[2024-10-14 05:50] LABS: Basophils Percent Auto 0.6 % (0-2); Eosinophils Absolute Auto 0.7 X10*3/uL (0.0-0.4); Eosinophils Percent Auto 10.7 % (0-4); Hematocrit 27.4 % (42.0-52.0); Hemoglobin 9.4 g/dl (14.0-18.0); Imm Gran Abs Auto 0.04 X10*3/uL (0.00-0.03); Imm Gran Pct Auto 0.6 % (0.0-0.4); Lymphocytes Absolute Auto 1.4 X10*3/uL (1.2-4.9); Lymphocytes Percent Auto 21.5 % (20-40); Mean Corpuscular HGB Conc 34.3 g/dl (31.0-36.0); Mean Corpuscular Hemoglobin 30.4 pg (27.0-33.0); Mean Corpuscular Volume 88.7 fL (80.0-98.0); Mean Platelet Volume 12.2 fL (9.4-12.4); Monocytes Absolute Auto 0.5 X10*3/uL (0.1-1.2); Monocytes Percent Auto 7.4 % (2-11); Neutrophils Absolute Auto 3.7 x10*3/uL (2.0-8.3); Neutrophils Percent Auto 59.2 % (45-73); Platelet Count 239 X10*3/uL (160-400); Red Blood Count 3.09 X10*6/uL (4.60-5.80); Red Cell Distribution Width 16.6 % (11.0-16.0); White Blood Count 6.3 X10*3/uL (4.8-10.8)
[2024-10-14 06:08] LABS: Anion Gap 11 (12-20); Blood Urea Nitrogen 16 mg/dL (9-16); Calcium 8.2 mg/dL (8.4-10.2); Carbon Dioxide 25 mmol/L (22-29); Chloride 110 mmol/L (96-108); Creatinine Clr Calc Pharmacy 115.7; Estimated Glomerular Filt Rate > 60; Glucose Random 89 mg/dL (60-115); Magnesium 1.9 mg/dL (1.6-2.6); Phosphorus 2.3 mg/dL (2.7-4.5); Potassium 3.7 mmol/L (3.3-5.1); Sodium 142 mmol/L (135-145)
[2024-10-14 06:21] LABS: VBG Base Excess 4.2 mmol/L; VBG HCO3 27 mmol/L (22-26); VBG pCO2 33 mmHg; VBG pH 7.51 (7.32-7.43); VBG pO2 36 mmHg
[2024-10-14 07:20] LABS: Glucose, Whole Blood 74 mg/dL (60-115)
[2024-10-14 08:15] LABS: Venous Blood Gas Refer to POC result
[2024-10-14 08:17] LABS: VBG Base Excess 3.7 mmol/L; VBG HCO3 29 mmol/L (22-26); VBG pCO2 52 mmHg; VBG pH 7.36 (7.32-7.43); VBG pO2 31 mmHg
[2024-10-14] MEDS: Albumin Human 25 % 100 ML IV ×3 (08:40→20:08)
[2024-10-14] MEDS: polyethylene glycoL 3350 17 GM POWD.PACK PO (08:40)
[2024-10-14] MEDS: Potassium Phosphate/NS 15 MMOL/250 ML PLAST..BAG 62.5 MMOL IV ×2 (08:40→16:30)
--- NOTE | 2024-10-14 09:41 | P.PNCC_ITS ---
Subjective Subjective Date of Service: 10/14/24 Interval History: 69-year-old gentleman with underlying history of diabetes mellitus, CKD, hypertension, prior ESBL E coli admitted on 10/07/2024 with septic shock of unclear etiology with poor response to initial IV fluid resuscitation requiring pressor support. Patient started on broad-spectrum antibiotics and admitted to the intensive care unit. Chest CT with right-sided pneumonia. No events overnight. Titrated off pressor support Critical Care Time (minutes): 0 Physical Exam 2 Vital Signs: Vital Signs: Last Vital Signs Temp 97.7 F 10/13/24 23:59 Pulse 80 10/14/24 08:46 Resp 18 10/14/24 07:00 BP 125/88 10/14/24 08:46 Pulse Ox 95 10/14/24 07:00 O2 Del Method Room Air 10/14/24 07:00 O2 Flow Rate 1 10/13/24 13:00 BMI result Body Mass Index 28.7 Const: General: no acute distress, alert and awake Eyes: Sclerae: sclerae normal EOM: EOMs intact bilaterally Neck: Neck: Yes no lymphadenopathy, Yes trachea midline and Yes supple Resp: Effort & Inspection: normal respiratory effort and no respiratory distress Auscultation: clear to auscultation bilaterally Cardio: Rate: regular rate Rhythm: regular rhythm Heart sounds: no gallops, no murmurs and no rubs GI: Palpation (GI): Soft to palpation and Other GI palpation findings present ( Nontender) Auscultation: normal bowel sounds Extrem: General: Yes no pedal edema, No clubbing and No cyanosis Objective Data Labs 10/14/24 05:20 10/14/24 05:20 Labs: Laboratory Results - last 24 hr 10/13/24 10/13/24 10/13/24 11:17 16:32 18:04 WBC RBC Hgb Hct MCV MCH MCHC RDW Plt Count MPV Immature Gran % (Auto) Neut % (Auto) Lymph % (Auto) [place] % (Auto) Eos % (Auto) Baso % (Auto) Lymph # (Auto) [place] # (Auto) Eos # (Auto) Baso # (Auto) Abs Immat Gran (auto) Absolute Neuts (auto) Absolute Nucleated RBC Nucleated RBC % (auto) VBG pH VBG pCO2 VBG pO2 VBG HCO3 VBG O2 Saturation VBG Base Excess Sodium Potassium Chloride Carbon Dioxide Anion Gap BUN Creatinine Estim Creat Clear Calc Estimated GFR POC Glucose 109 158 H Random Glucose Calcium Phosphorus Magnesium Albumin Random Vancomycin 18.1 10/13/24 10/14/24 10/14/24 21:13 05:20 05:26 WBC 6.3 RBC 3.09 L Hgb 9.4 L Hct 27.4 L MCV 88.7 MCH 30.4 MCHC 34.3 RDW 16.6 H Plt Count 239 MPV 12.2 Immature Gran % (Auto) 0.6 H Neut % (Auto) 59.2 Lymph % (Auto) 21.5 [place] % (Auto) 7.4 Eos % (Auto) 10.7 H Baso % (Auto) 0.6 Lymph # (Auto) 1.4 [place] # (Auto) 0.5 Eos # (Auto) 0.7 H Baso # (Auto) 0.0 Abs Immat Gran (auto) 0.04 H Absolute Neuts (auto) 3.7 Absolute Nucleated RBC 0.000 Nucleated RBC % (auto) 0.0 VBG pH 7.51 H VBG pCO2 33 VBG pO2 36 VBG HCO3 27 H VBG O2 Saturation 63.0 VBG Base Excess 4.2 Sodium 142 Potassium 3.7 Chloride 110 H Carbon Dioxide 25 Anion Gap 11 L BUN 16 Creatinine 0.64 Estim Creat Clear Calc 115.7 Estimated GFR > 60 POC Glucose 95 Random Glucose 89 Calcium 8.2 L Phosphorus 2.3 L Magnesium 1.9 Albumin 3.0 L Random Vancomycin 10/14/24 10/14/24 07:17 08:13 WBC RBC Hgb Hct MCV MCH MCHC RDW Plt Count MPV Immature Gran % (Auto) Neut % (Auto) Lymph % (Auto) [place] % (Auto) Eos % (Auto) Baso % (Auto) Lymph # (Auto) [place] # (Auto) Eos # (Auto) Baso # (Auto) Abs Immat Gran (auto) Absolute Neuts (auto) Absolute Nucleated RBC Nucleated RBC % (auto) VBG pH 7.36 VBG pCO2 52 VBG pO2 31 VBG HCO3 29 H VBG O2 Saturation 37.0 VBG Base Excess 3.7 Sodium Potassium Chloride Carbon Dioxide Anion Gap BUN Creatinine Estim Creat Clear Calc Estimated GFR POC Glucose 74 Random Glucose Calcium Phosphorus Magnesium Albumin Random Vancomycin Microbiology Microbiology Results: Microbiology 10/07/24 14:29 Blood - Venous Blood Culture - Final No growth after 5 days. 10/07/24 14:29 Blood - Venous Blood Culture - Final No growth after 5 days. Progress Note: A&P Assessment and plan (1) Diabetes mellitus: Status: Acute (2) Sepsis: Status: Acute (3) Pneumonia: Status: Acute Plan Assessment: 69-year-old gentleman with underlying diabetes mellitus and hypotension admitted with septic shock with unclear source requiring pressor support. Plan: Neuro: No acute issues. Cardiac: Septic shock, resolved, titrated off pressor support. Pulmonary: Acute respiratory failure with hypoxia, resolved. CT chest with right-sided pneumonia. Renal: Acute kidney injury, likely secondary to ATN from septic shock, resolved. Non oliguric. Continue to monitor renal indices and urine output. Endo: No acute issues. Underlying diabetes mellitus, continue sliding scale insulin. GI: Transaminitis with poor p.o. tolerance, improving. Repeat CT abdomen with no evidence of choledocholithiasis or SBO. ID: Septic shock with likely pulmonic source, continue broad-spectrum antibiotics. Cultures are negative to date. Leukocytosis is improving. Heme/Onc: No acute issues. Psych: No acute issues. Miscellaneous: No acute issues. Prophylaxis: Heparin Diet: Diabetic Quality Stroke Does the patient have a stroke diagnosis?: No VTE Prior VTE?: No VTE Risk Level:: Medical - moderate - high VTE Device Contraindication: Treatment Not Indicated VTE Drug Contraindication: N/A - Med Ordered
--- NOTE | 2024-10-14 10:43 | MHC.CM.PN ---
Pt is no longer on IV pressors and will transfer to tele today. Met with pt to review D/C plan: pt verbalized concern w/returning to [facility] as he does not feel he is getting enough PT services. Discussed higher level of skill after acute care stay: Plan: update [facility] w/pt concerns to reassure pt he will have more PT care as well as make broad alternate SNF referrals as a back up. CM to follow
[2024-10-14 11:27] LABS: Glucose, Whole Blood 88 mg/dL (60-115)
--- NOTE | 2024-10-14 13:38 | MHC.SL.SWA ---
Speech Pathologist Impression: Risk of Aspiration Due to: Dysphasia Diet Status: Recommend UPGRADE diet to Regular, continue on thin liquids, pills whole with liquid. COMPUTER INSTALLER will f/u to assess toleration of recommended diet. Liquid Consistency and Strategies for Safe Swallow: Liquid Intake Recommendation: Thin Liquid Intake Strategies: Small Sips No Straws Solid Food Consistency: Dietary Recommendations: Regular Additional Modifications to Solid Foods: Small bites and sips, chew food thoroughly, alternate with sips of liquid. Oral Medication Intake: Whole with Liquid Please contact the pharmacy regarding appropriate crushable or liquid drug formulations that are available whenever modified delivery is recommended. Compensatory Strategies and Precautions to be Taken for Safe Swallow: Sitting Upright (90 deg) Liquids from Cup Small Bites and Sips Alternate Liquids/Solids Supervision While Eating and Drinking for Safe Swallow: Total Assistance (1:1) Foods to Avoid: Swallowing Recommended Treatments: Compens. Strategy Educat. Recommendation for Speech: Inpatient Speech Therapy Speech Therapy through Rehab Facility Comment: Pt seen for dysphagia treatment. Pt remains in the ICU for cardiac monitoring. RN consulted, reported patient had been eating a fruit salad(watermelon, grapes and berries) that had been brought to him from the cafe by someone, and that she had observed him happily eating this food with no apparent difficulties. Also noted Neck CT negative for any abnormality or obstruction. Patient had been re-assessed yesterday with COMPUTER INSTALLER recommending diet advancement, however per MD this had not been communicated. On this visit, patient was not re-assessed, as sleeping soundly. Discussed with MD and RN, recommend UPGRADE diet to Regular, continue on thin liquids, pills whole with liquid. COMPUTER INSTALLER will f/u to assess toleration of recommended diet. Frequency/Duration: M-F Date Range for Service Req: Timeline to reassess: Screen Tender Clinican/Clinical Fellow: No Supervisory Statement: I have reviewed and agree with the student/clinical fellow's documentation: N/A Speech Language Pathologist: Kaleigh Ennis M.A., [facility]-COMPUTER INSTALLER
--- NOTE | 2024-10-14 14:50 | PM.EVENT ---
Event Note Date of Service: 10/14/24 Event Note: 69-year-old gentleman with underlying history of diabetes mellitus, CKD, hypertension, prior ESBL E coli admitted on 10/07/2024 with septic shock of unclear etiology with poor response to initial IV fluid resuscitation requiring pressor support. Patient started on broad-spectrum antibiotics and admitted to the intensive care unit. Chest CT with right-sided pneumonia, blood pressure 77/40, O2 sat 95% on room air, WBC 15796, lactic acid 4.6, creatinine 2.51 Chest x-ray showed no acute abnormality CT abdomen and pelvis showed a markedly distended stomach with iqbuwmdk-[id number]-ydves amount of stool throughout the colon, distended bladder. Septic shock, likely due to pneumonia Sepsis resolved , WBC normalized, no recurrent fevers, titrated off pressor support, continue IV meropenem started on 10/10 and IV vancomycin, started 10/11. Blood cultures x2 negative, influenza RSV and SARS negative. Acute respiratory failure with hypoxia, resolved. Acute kidney injury, likely secondary to ATN from septic shock, resolved, Non oliguric. Continue to monitor renal indices and urine output. Diabetes mellitus, stable blood sugars, continue sliding scale insulin, home medications including metformin, Januvia, pre meal insulin on hold. Hypertension soft blood pressure continue to hold benazepril, hydralazine and Lasix Hyperlipidemia resume Lipitor and fenofibrate Transaminitis with poor p.o. tolerance, improving. Repeat CT abdomen with no evidence of choledocholithiasis or SBO. Hypophosphatemia phosphorus 2.3 will add Neutra-Phos 1 pack b.i.d. follow labs Shoulder/back pain Prophylaxis: Heparin subQ PT recommends short-term rehab, patient requesting not returned to [place] care. Full code Time Spent With Patient Time: Total time managing care of this patient today ____ minutes.
--- NOTE | 2024-10-14 15:49 | PC.NURSE ---
Assumed care @ 0700 Patient admitted to ICU for vasopressors support. Now off pressors? Neuro/Respiratory: : Alert, oriented, on RA Cardiac: Sinus rhythm, Systolic BP 90 to 100?s, MAp >65, no pressors -see MAR. Dr. Mcduffie aware.? GI/: Poor PO intake , [place] removed, Due to void @1530., Bladder scan for 243 Skin: impaired skin integrity- see skin assessment? Lines: peripheral IV x1. Plan: Transfer to [facility]. No longer requiring ICU-level care. Belonging list completed?
[2024-10-14 16:02] LABS: Glucose, Whole Blood 104 mg/dL (60-115)
--- NOTE | 2024-10-14 17:00 | CA_ITS ---
Transthoracic Echocardiogram Patient (Last, First, Middle): Carlos Cabrera A Gender: Male Date of : 1955 Age: 69 Procedure Date: 10/14/2024 Procedure Type: Transthoracic Echocardiogram Location: ICU Height: 172.72 cm Weight: 85.28 kg BSA: 1.99 m2 Heart Rate: bpm BP: 104 / 52 mmHg Solution Coordinator: TO Referring MD: Jose F Mcduffie MD Symptoms: hypotension Study Quality: Fair/Contrast Conclusions: - Normal left ventricular cavity size. There is normal left ventricular wall thickness. The left ventricular systolic function is moderately decreased. The visually estimated ejection fraction is between 30-35%. - The mid inferoseptal segment is hypokinetic. - The entire apex, the mid anterolateral, mid anteroseptal, and mid inferolateral segments are akinetic. - LAD territory wall motion abnormalities vs Takotsubo Cardiomyopathy. Findings Procedure Information Contrast agent, definity, is being given per protocol without apparent complications. Left Ventricle Normal left ventricular cavity size. There is normal left ventricular wall thickness. The left ventricular systolic function is moderately decreased. The visually estimated ejection fraction is between 30-35%. There is evidence of regional wall motion abnormalities. Abnormal diastolic function is noted. Spectral Doppler is indicative of an impaired relaxation filling pattern. E/E prime ratio is between 8 and 15 consistent with indeterminate filling pressures. Wall Motion Rest Echo Findings The mid inferoseptal segment is hypokinetic. The entire apex, the mid anterolateral, mid anteroseptal, and mid inferolateral segments are akinetic. Right Ventricle Normal right ventricular cavity size and systolic function. Atria The left atrium is moderately dilated. The right atrium is normal in size. Aortic Valve There is a normal trileaflet aortic valve. There is no aortic valve stenosis. There is no aortic valve regurgitation. Mitral Valve The mitral valve appears normal. There is no mitral valve regurgitation. There is no mitral valve stenosis. Pulmonic Valve The pulmonic valve is normal. There is trace pulmonic valve regurgitation. Tricuspid Valve Normal tricuspid valve structure. There is no tricuspid valve regurgitation. Tricuspid regurgitation envelope is inadequate for calculation of right ventricular systolic pressure. Normal right atrial pressure. Great Vessels All visible segments of the aorta are normal in size. The visualized portions of the pulmonary artery and branches are normal. Venous The inferior vena cava is normal in size and collapses greater than 50% with inspiration. Pericardium/Pleural There is no evidence of pericardial effusion. Measurements 2D Linear Measurements IVSd: 1.18 0.6-0.9/0.6-1.0 cm LVIDd: 4.90 3.9-5.3/4.2-5.9 cm LVIDd Index: 2.46 2.4-3.2/2.2-3.1 cm/m2 LVIDs: 3.28 2.0-3.6 cm LVPWd: 0.94 0.7-1.1 cm LV Mass: 237.89 67-162/88-224 g LV Mass Index: 119.54 43-95/49-115 g/m2 LVOT Diam: 2.30 3.0+(-)1.3 cm 2D Systolic Function EF 4C: 38.70 >55% EF 2C: 39.90 >55% EF BiP: 40.60 >55% Mitral Valve MV Pk E: 0.48 MV PK A: 0.27 MV Decel Time: 372.00 E/A: 1.80 E'Lateral: 6.85 E'Medial: 3.81 E/E' Med: 12.70 E/E' Lat: 7.10 PHT: 109.00 MVA PHT: 2.02 Decel [place]: 1.30 Aortic Valve AoV Pk Jose: 0.99 AoV Mn Jose: 0.61 AoV VTI: 0.20 AoV Pk Grad: 4.00 Aov Mn Grad: 2.00 TREMAYNE Cont.VTI: 2.92 LVOT LVOT Pk Jose: 0.66 LVOT Mn Jose: 0.46 LVOT VTI: 0.14 LVOT Pk Grad: 2.00 LVOT Mn Grad: 1.00 LVOT Diam: 2.30 LVOT Area: 4.15 Diastolic Function MV Pk E: 0.48 MV Pk A: 0.27 E/A: 1.80 E'Medial: 3.81 E/E' Med: 12.70 E' Laterial: 6.85 E/E' Lat: 7.10 Right Ventricle TAPSE (mm): 20.30 TVS' Jose: 10.10 Tricuspid Valve TR Pk Jose: 2.81 TR Pk Grad: 32.00 Great Vessels Aorta Sinus of Valsalva: 3.45 2.0-3.5 cm Ao Asc: 3.20 2.1-3.4 cm Updated in Other Vendor System with Status of Final Matheus Smith MD electronically signed on 10/14/2024 4:37:39 PM with status of Final
[2024-10-14 19:07] LABS: Vancomycin Random 19.3 mcg/mL (15-20)
--- NOTE | 2024-10-14 19:19 | HE.PHANOTE ---
Re: Vanco Renal continues to improve. Trough returned at 19.3. Dose at 10/14 was held, and will resume 10/15 at 0800 with predicted AUC 418, predicted 13.4. However, this patient is running 4 points higher than the predicted trough. Next trough to be drawn 10/16 @ 0600.
[2024-10-14] MEDS: Sodium,Potassium Phosphates POWD.PACK 1 PACKET PO (20:07)
[2024-10-14 21:16] LABS: Glucose, Whole Blood 95 mg/dL (60-115)
[2024-10-14] MEDS: Latanoprost 0.005 % Ophth Sol 2.5 ML DROPS 1 DROP EYE-BOTH (23:22)
[2024-10-15] VITALS (7 sets, daily range): BP systolic 102–127; BP diastolic 52–61; PULSE 58–63; RESP 16–19; TEMP 36.1–37.1; O2SAT 97–99; BMI 27.6
[2024-10-15] MEDS: 0.9 % Sodium Chloride Flush 3 ML SYRINGE IVFLUSH ×4 (01:39→21:12)
[2024-10-15] MEDS: Heparin Sodium,Porcine 5,000 UNIT/ML VIAL 5000 UNIT SUBCUT ×3 (01:39→18:17)
[2024-10-15] MEDS: Meropenem 1 GM VIAL IVPUSH (01:39)
[2024-10-15] MEDS: Albumin Human 25 % 100 ML IV (01:40)
[2024-10-15 06:17] LABS: MANUAL DIFF FLAG NO
[2024-10-15 06:29] LABS: Basophils Percent Auto 0.6 % (0-2); Eosinophils Absolute Auto 0.6 X10*3/uL (0.0-0.4); Eosinophils Percent Auto 11.7 % (0-4); Hematocrit 24.6 % (42.0-52.0); Hemoglobin 8.1 g/dl (14.0-18.0); Imm Gran Abs Auto 0.02 X10*3/uL (0.00-0.03); Imm Gran Pct Auto 0.4 % (0.0-0.4); Lymphocytes Absolute Auto 1.5 X10*3/uL (1.2-4.9); Lymphocytes Percent Auto 28.9 % (20-40); Mean Corpuscular HGB Conc 32.9 g/dl (31.0-36.0); Mean Corpuscular Hemoglobin 29.8 pg (27.0-33.0); Mean Corpuscular Volume 90.4 fL (80.0-98.0); Mean Platelet Volume 12.1 fL (9.4-12.4); Monocytes Absolute Auto 0.4 X10*3/uL (0.1-1.2); Monocytes Percent Auto 8.2 % (2-11); Neutrophils Absolute Auto 2.6 x10*3/uL (2.0-8.3); Neutrophils Percent Auto 50.2 % (45-73); Platelet Count 244 X10*3/uL (160-400); Red Blood Count 2.72 X10*6/uL (4.60-5.80); White Blood Count 5.2 X10*3/uL (4.8-10.8)
[2024-10-15 06:38] LABS: Anion Gap 11 (12-20); Blood Urea Nitrogen 13 mg/dL (9-16); Calcium 8.5 mg/dL (8.4-10.2); Carbon Dioxide 24 mmol/L (22-29); Chloride 112 mmol/L (96-108); Creatinine Clr Calc Pharmacy 119.6; Estimated Glomerular Filt Rate > 60; Glucose Random 103 mg/dL (60-115); Potassium 3.8 mmol/L (3.3-5.1); Sodium 143 mmol/L (135-145)
[2024-10-15 07:48] LABS: Glucose, Whole Blood 92 mg/dL (60-115)
[2024-10-15] MEDS: Sodium,Potassium Phosphates POWD.PACK 1 PACKET PO ×2 (08:48→21:12)
[2024-10-15] MEDS: oxyCODONE HCl Immed Release 5 MG TABLET 10 MG PO ×3 (08:53→21:22)
[2024-10-15 09:38] LABS: Estimated Average Glucose 117 mg/dL; Hemoglobin A1C 84.2314 umol/L; Hemoglobin A1c % 5.7 % (<6.0); Total Hemoglobin (HGBA1C) 2201.9265 umol/L
--- NOTE | 2024-10-15 11:55 | MHC.CM.PN ---
EMR REVIEWED, PER HOSPITALIST PT MAY BE CLEARED FOR DC BACK TO STR PENDING CLEARANCE BY ICU PROVIDER/PULMONOLOGY, CM AWAITING TO FIND OUT IF [facility] WILL OFFER PT DOES NOT WANT TO RETURN TO [facility], CM WILL CONT TO FOLLOW.
--- NOTE | 2024-10-15 12:09 | MHC.SL.SWA ---
Speech Pathologist Impression: Esophageal dysphagia Dysphasia Diet Status: No Change. Patient is tolerating unmodified diet. Liquid Consistency and Strategies for Safe Swallow: Liquid Intake Recommendation: Thin Liquid Intake Strategies: Small Sips No Straws Solid Food Consistency: Dietary Recommendations: Regular Additional Modifications to Solid Foods: Small bites and sips, chew food thoroughly, alternate with sips of liquid. Oral Medication Intake: Whole with Liquid Please contact the pharmacy regarding appropriate crushable or liquid drug formulations that are available whenever modified delivery is recommended. Compensatory Strategies and Precautions to be Taken for Safe Swallow: Sitting Upright (90 deg) Liquids from Cup Small Bites and Sips Alternate Liquids/Solids Rate of Ingestion Change Supervision While Eating and Drinking for Safe Swallow: Total Assistance (1:1) Swallowing Recommended Treatments: Compens. Strategy Educat. Recommendation for Speech: D/C Heater Tender Clinican/Clinical Fellow: No Supervisory Statement: I have reviewed and agree with the student/clinical fellow's documentation: N/A Speech Language Pathologist: Ernestina Urena M.A., CCC-MOLD CLOSER HELPER
[2024-10-15 13:31] LABS: Glucose, Whole Blood 115 mg/dL (60-115)
--- NOTE | 2024-10-15 13:53 | MHC.CLN ---
F/U PT WITH INCREASED NUTRITION RISK R/T PRESSURE INJURIES PO INTAKE 25% CONSISTENTLY DIET ADVANCED TO 2200DM PER CRUDE OIL DRIVER PT RECEIVING GELATEIN TID TO PROMOTE WOUND HEALING SUPPLEMENT PROVIDES 480KCALS, 60G PROTEIN WITH 100% ACCEPTANCE CONTINUE TO MONITOR PO INTAKE AND ENCOURAGE SUPPLEMENTS
--- NOTE | 2024-10-15 14:10 | MHC.CM.PN ---
Addendum entered by Kaleigh Sorensen RN 10/15/24 16:30: booking id [id number] [facility]. Addendum entered by Kaleigh Sorensen RN 10/15/24 16:23: cm attempted to contact [facility] x2 however call was disconnected x2. Addendum entered by Kaleigh Sorensen RN 10/15/24 16:13: CM MET W/PT AND HCP/FLAQUITA GRACIA [phone] W/TERRA COTTA SETTER, AFTER LONG DISCUSSION PT AND BASIL ARE AGREEABLE TO SWITCH TO [facility]. Addendum entered by Kaleigh Sorensen RN 10/15/24 14:42: CM MET W/PT FOR 3RD TIME, PT REPORTS HIS HCP/S.OJuana FRANCE IS ON HER WAY IN AND WOULD LIKE TO DISCUSS CHANGING LTC FACILITIES PRIOR TO CM GIVING [facility] AN ANSWER. PER LIAISON PT WOULD BE DISCHARGING TO [facility]. Original Note: EMR REVIEWED, PT CONT'S TO REFUSE TO RETURN TO LTC AT [facility], CM VERIFIED W/[facility] LIAISON THATPT HAS BEEN LTC SINCE JUNE 2024, AFTER FAILING STR. [facility] OFFERING LTC BED AND PT WOULD LIKE TO VERIFY W/HCP/FLAQUITA FRANCE PRIOR TO GIVING CM OKAY, PT REPORTS HE WILL CALL WHEN HE GETS OFF CURRENT CALL. CM ATTEMPTED TO CONTACT ED[facility] AT NUMBER ON FILE, DETAILED MESSAGE LEFT, CM ALSO ATTEMPTED TO CONTACT ALT HCP PT'S SON HOWEVER NO ANSWER.
--- NOTE | 2024-10-15 15:41 | HO.PM.IMPN ---
Subjective Subjective Date of Service: 10/15/24 Interval History: Complaining of chronic right shoulder and back pain Denies fever, no chills, no cough, no sputum production, tolerating diet. No acute events overnight Review of Systems All other system reviewed and are negative Physical Exam Vital Signs: Vital Signs: Last Vital Signs Temp 97.0 F 10/15/24 11:51 Pulse 60 10/15/24 13:51 Resp 19 10/15/24 11:51 BP 114/56 L 10/15/24 13:51 Pulse Ox 97 10/15/24 13:51 O2 Del Method Room Air 10/15/24 11:51 O2 Flow Rate 1 10/13/24 13:00 BMI result Body Mass Index 27.6 Const: Other: General resting comfortably in no acute distress. Neck no JVD. CVS regular rate rhythm, Respiratory lungs clear to auscultation, no respiratory distress, no wheeze, no rhonchi. Gastrointestinal abdomen soft, non tender, bowel sounds audible, no guarding , no rigidity. Extremities no edema. Right shoulder limited range of activity Neuro non focal / speech clear. Skin no rash Psych appropriate affect Objective Data Active Medications Acetaminophen (Acetaminophen 325 Mg Tablet) 650 mg PO Q6H PRN PRN Reason: Fever >101 Last Admin: 10/12/24 10:07 Dose: 650 mg Documented By: NELSNO Calcium Carbonate (Calcium Carbonate 750 Mg Tab.Chew) 750 mg PO Q6H PRN PRN Reason: Heartburn Dextrose (Dextrose 50 % 25 Gm/50 Ml Syringe) 25 gm IVPUSH Q15M PRN; Protocol PRN Reason: per Hypoglycemia Standing Ord. Glucose (Glucose Gel 15 Gm Gel..Gram.) 15 gm PO Q15M PRN; Protocol PRN Reason: per Hypoglycemia Standing Ord. Heparin Sodium (Porcine) (Heparin Sodium,Porcine 5,000 Unit/Ml Vial) 5,000 unit SUBCUT Q8H [facility] Last Admin: 10/15/24 08:48 Dose: 5,000 unit Documented By: KWAME Insulin Human Lispro (Insulin Lispro 100 Unit/Ml 3 Ml Vial) 0 unit SUBCUT QIDACHS [facility]; Protocol Last Admin: 10/15/24 11:55 Dose: Not Given Documented By: KWAME Non-Admin Reason: No Insulin Coverage Latanoprost (Latanoprost 0.005 % [facility] Maria Eugenia 2.5 Ml Drops) 1 drop EYE-BOTH BEDTIME [facility] Last Admin: 10/14/24 23:22 Dose: 1 drop Documented By: KIANNA Oxycodone HCl (Oxycodone Hcl Immed Release 5 Mg Tablet) 10 mg PO Q6H PRN PRN Reason: Pain, Severe (Pain Scale 7-10) Last Admin: 10/15/24 15:37 Dose: 10 mg Documented By: KWAME Oxycodone HCl (Oxycodone Hcl Immed Release 5 Mg Tablet) 5 mg PO Q6H PRN PRN Reason: Pain, Moderate(Pain Scale 4-6) Last Admin: 10/13/24 23:38 Dose: 5 mg Documented By: LAURA Polyethylene Glycol (Polyethylene Glycol 3350 17 Gm Powd.Pack) 17 gm PO DAILY [facility] Last Admin: 10/15/24 08:54 Dose: Not Given Documented By: KWAME Non-Admin Reason: loose BM Potassium Phos/Sodium Phos (Sodium,Potassium Phosphates Powd.Pack) 1 packet PO BID [facility] Last Admin: 10/15/24 08:48 Dose: 1 packet Documented By: KWAME Senna (Sennosides 8.6 Mg Tablet) 17.2 mg PO BEDTIME PRN PRN Reason: Constipation Last Admin: 10/13/24 20:27 Dose: 17.2 mg Documented By: LAURA Sodium Chloride (0.9 % Sodium Chloride Flush 3 Ml Syringe) 3 ml IVFLUSH QSHIFT [facility] Last Admin: 10/15/24 15:37 Dose: 3 ml Documented By: KWAME Labs 10/15/24 05:40 10/15/24 05:40 Labs: Laboratory Results - last 24 hr 10/14/24 10/14/24 10/14/24 15:49 18:38 21:08 MCV MCH MCHC RDW Plt Count MPV Immature Gran % (Auto) Neut % (Auto) Lymph % (Auto) Carbon % (Auto) Eos % (Auto) Baso % (Auto) Lymph # (Auto) Carbon # (Auto) Eos # (Auto) Baso # (Auto) Abs Immat Gran (auto) Absolute Neuts (auto) Absolute Nucleated RBC Nucleated RBC % (auto) Anion Gap Estim Creat Clear Calc Estimated GFR POC Glucose 104 95 Random Glucose Estimat Average Glucose Hemoglobin A1c % Calcium Phosphorus Magnesium Random Vancomycin 19.3 10/15/24 10/15/24 10/15/24 05:40 07:43 11:50 MCV 90.4 MCH 29.8 MCHC 32.9 RDW 17.0 H Plt Count 244 MPV 12.1 Immature Gran % (Auto) 0.4 Neut % (Auto) 50.2 Lymph % (Auto) 28.9 Carbon % (Auto) 8.2 Eos % (Auto) 11.7 H Baso % (Auto) 0.6 Lymph # (Auto) 1.5 Carbon # (Auto) 0.4 Eos # (Auto) 0.6 H Baso # (Auto) 0.0 Abs Immat Gran (auto) 0.02 Absolute Neuts (auto) 2.6 Absolute Nucleated RBC 0.000 Nucleated RBC % (auto) 0.0 Anion Gap 11 L Estim Creat Clear Calc 119.6 Estimated GFR > 60 POC Glucose 92 115 Random Glucose 103 Estimat Average Glucose 117 Hemoglobin A1c % 5.7 Calcium 8.5 Phosphorus 3.0 Magnesium 2.0 Random Vancomycin Assessment and Plan (1) Pneumonia: Status: Acute Plan 69-year-old gentleman with underlying history of diabetes mellitus, CKD, hypertension, prior ESBL E coli admitted on 10/07/2024 with septic shock of unclear etiology with poor response to initial IV fluid resuscitation requiring pressor support. Patient started on broad-spectrum antibiotics and admitted to the intensive care unit. Chest CT with right-sided pneumonia, blood pressure 77/40, O2 sat 95% on room air, WBC 40833, lactic acid 4.6, creatinine 2.51 Chest x-ray showed no acute abnormality on admisssion CT abdomen and pelvis showed a markedly distended stomach with hsxrnfnh-od-maeyj amount of stool throughout the colon, distended bladder. Septic shock, likely due to pneumonia Sepsis resolved , WBC normalized, no recurrent fevers, titrated off pressor support, on IV meropenem started on 10/10 and IV vancomycin, started 10/11. Blood cultures x2 negative, influenza RSV and SARS negative. Will DC IV antibiotic and transitioned to by mouth doxycycline x3 days Acute respiratory failure with hypoxia, resolved. Acute kidney injury, likely secondary to ATN from septic shock, resolved, Non oliguric. Continue to monitor renal indices and urine output. Diabetes mellitus, stable blood sugars, continue sliding scale insulin, home medications including metformin, Januvia, pre meal insulin on hold. Hypertension soft blood pressure continue to hold benazepril, hydralazine and Lasix Hyperlipidemia resume Lipitor and fenofibrate Transaminitis improving. Repeat CT abdomen with no evidence of choledocholithiasis or SBO. Likely due to pneumonia. Hypophosphatemia phosphorus 2.3, added Neutra-Phos 1 pack b.i.d. repeat phosphorus improved. Shoulder/back pain add Lidoderm patch/cont. home meds Prophylaxis: Heparin subQ PT recommends short-term rehab, patient requesting not to return to [place] care. system development manager arranging for safe disposition. Quality Stroke Does the patient have a stroke diagnosis?: No VTE Prior VTE?: No VTE Risk Level:: Medical - moderate - high VTE Device Contraindication: Treatment Not Indicated VTE Drug Contraindication: N/A - Med Ordered
[2024-10-15] MEDS: Doxycycline Monohydrate 100 MG CAPSULE PO (16:32)
[2024-10-15 16:34] LABS: Glucose, Whole Blood 97 mg/dL (60-115)
[2024-10-15 20:17] LABS: Glucose, Whole Blood 102 mg/dL (60-115)
[2024-10-15] MEDS: Latanoprost 0.005 % Ophth Sol 2.5 ML DROPS 1 DROP EYE-BOTH (21:13)
[2024-10-16] MEDS: oxyCODONE HCl Immed Release 5 MG TABLET 10 MG PO ×2 (03:16→08:19)
[2024-10-16] MEDS: Heparin Sodium,Porcine 5,000 UNIT/ML VIAL 5000 UNIT SUBCUT (03:16)
[2024-10-16] MEDS: Doxycycline Monohydrate 100 MG CAPSULE PO (03:16)
[2024-10-16 03:42] VITALS: BP 119/61; PULSE 64; RESP 18; TEMP 37.1; O2SAT 97
[2024-10-16 04:55] VITALS: BMI 24.7
[2024-10-16 07:34] LABS: Glucose, Whole Blood 86 mg/dL (60-115)
[2024-10-16 07:35] VITALS: BP 120/60; PULSE 57; RESP 20; O2SAT 97
[2024-10-16] MEDS: polyethylene glycoL 3350 17 GM POWD.PACK PO (08:14)
[2024-10-16] MEDS: Sodium,Potassium Phosphates POWD.PACK 1 PACKET PO (08:15)
[2024-10-16] MEDS: 0.9 % Sodium Chloride Flush 3 ML SYRINGE IVFLUSH (08:22)
--- NOTE | 2024-10-16 11:30 | P.DS_ITS ---
DS: Providers Provider Date of Service: 10/16/24 Date of admission: 10/07/24 18:55 Date of discharge: 10/16/24 Primary care physician: Tram Álvarez MD Consults: 10/09/24 06:32 Consult to Wound Care Routine Reason for consultation: Sacrococcygeal PI, boggy heels DS: Diagnosis Discharge Diagnosis (1) Pneumonia: Status: Acute (2) Acute respiratory failure with hypoxia: Status: Acute (3) Sepsis: Status: Acute DS: Summary Hospital Course Hospital Course: 69 yo male with PMH of DM2, dCHF, neuropathy, spinal stenosis, fall risk, CKD, HTN, HLD, ESBL + E. Coli in urine, FULL CODE, reportedly had labs done this AM for hypotension - WBC count 17, Cr was 2.44 with baseline around 1 - 1.2 he himself has no complaints. He states no pain, n/v/d,, no fevers, no GIB symptoms, no dysuria. He has had a cough. He has no abdominal pain or chest pain. He arrived with EMS - BPs 70s/40s and mentating. He states he had a normal day yesterday and felt fine. He is not on chronic steroids. Noted to have persistent hypotension in ER that did not respond to the 30 cc/kilogram bolus. Pressors were started and he was admitted to ICU. He was empirically covered with vancomycin and meropenem. Hospital Course Over the next several days patient was weaned off pressors and able to transfer out of ICU. Over the last 48 hours he has remained hemodynamically stable and his antibiotics were switched to doxycycline for which he will complete a 10 day course. At this point of time he is medically acceptable to returned to SNF Time Attestation Discharge Coordination Time (in mins): 35 Quality: Safe Use of Opioids Does Pt have an Active Cancer Diagnosis on the Problem List?: No Quality: Stroke Does the patient have a stroke diagnosis?: No Physical Exam Vital Signs: Vital Signs: Last Vital Signs Temp 98.7 F 10/16/24 03:42 Pulse 57 10/16/24 07:35 Resp 20 10/16/24 07:35 BP 120/60 10/16/24 07:35 Pulse Ox 97 10/16/24 07:35 O2 Del Method Room Air 10/16/24 07:35 O2 Flow Rate 1 10/13/24 13:00 BMI result Body Mass Index 24.7 Const: Other: Awake alert no acute distress Resp: Other: Clear to auscultation bilaterally no rales rhonchi or wheezes Cardio: Other: No S4; positive S1-S2; no S3 murmurs rubs or gallops GI: Other: Soft nontender nondistended normoactive bowel sounds Extrem: Other: No edema bilaterally DS: Data Data Completed and Pending Completed studies during hospitalization [Text1]: Procedures Inspection of Gallbladder, Percutaneous Endoscopic Approach (09/18/23) Introduction of Anesthetic Agent into Peripheral Nerves and Plexi, Percutaneous Approach (05/07/23) Repair Left Upper Leg Tendon, Open Approach (05/07/23) Resection of Gallbladder, Open Approach (09/18/23) Labs on day of discharge: Laboratory Results - last 24 hr 10/15/24 10/15/24 10/15/24 11:50 16:28 20:13 POC Glucose 115 97 102 10/16/24 07:20 POC Glucose 86 Discharge Plan Discharge Anticipated Discharge Date/Time: 10/16/24 11:21 Patient Disposition: Xfer SNF Discharge Diagnosis: Sepsis secondary to pneumonia Referrals: [facility] [Other] - 1 Week (SHORT TERM REHAB W/TRANSITION TO NEGOTIATOR CARE. ) Tram Royal MD [Primary Care Provider] - 1 Week Discharge Medications: New doxycycline monohydrate 100 mg Capsule 100 mg PO Q12H Qty: 20 0RF Continued (DME) walker Misc See Rx Instructions .ROUTE .MEDSUPPLY Qty: 1 0RF Rx Instructions: As directed (DME) Ultra-Light Rollator Misc See Rx Instructions .ROUTE .MEDSUPPLY Qty: 1 0RF Rx Instructions: with seat (DME) sock aid See Rx Instructions .Route .MEDSUPPLY Qty: 1 0RF Rx Instructions: As directed (DME) leg laborer tree tapping See Rx Instructions .Route .MEDSUPPLY Qty: 1 0RF Rx Instructions: As directed (DME) FreeStyle Tirso 14 Day [place] Misc See Rx Instructions .ROUTE .MEDSUPPLY Qty: 1 0RF Rx Instructions: As directed (DME) Shower Chair Misc See Rx Instructions .Route Qty: 1 0RF Rx Instructions: As directed (DME) Brace,wrist Misc See Rx Instructions .Route Qty: 1 0RF Rx Instructions: right hand wrist splint (DME) FreeStyle Tirso 2 Sensor Kit See Rx Instructions .Route Qty: 2 11RF Rx Instructions: As directed (DME) pen needle, diabetic 31 gauge x 5/16 needle See Rx Instructions subcut .MEDSUPPLY Qty: 200 4RF Rx Instructions: five times a day (DME) bed rail See Rx Instructions .Route .MEDSUPPLY Qty: 1 0RF Rx Instructions: As directed (DME) bedside commode Kit See Rx Instructions .Route Qty: 1 0RF Rx Instructions: As directed (DME) adult diapers pull-ups X-large See Rx Instructions .Route .MEDSUPPLY Qty: 240 11RF Rx Instructions: As directed (DME) wipes See Rx Instructions .Route .MEDSUPPLY Qty: 400 11RF Rx Instructions: As directed (DME) compr.stocking,knee,long,x-lrg Misc See Rx Instructions .Route Qty: 12 0RF Rx Instructions: As [id number] mmhg (DME) hospital bed Kit See Rx Instructions .Route Qty: 1 0RF Rx Instructions: As directed- full electric oxycodone 10 mg tablet 10 mg PO Q6H PRN (Reason: pain) 30 Days Qty: 120 0RF Rx Instructions: Partial Fill upon patient request. cholecalciferol (vitamin D3) 50 mcg (2,000 unit) tablet 50 mcg PO DAILY Qty: 90 0RF (DME) wheelchair electric See Rx Instructions .Route .MEDSUPPLY Qty: 1 0RF Rx Instructions: As directed latanoprost 0.005 % drops 1 drp ophthalmic (eye) BEDTIME Rx Instructions: 1 drop into both eyes insulin aspart U-100 100 unit/mL (3 mL) Insulin Pen 1 sliding scale dose subcut TIDAC Protocol: Insulin Correction Scale Less than or equal to 110 ---- Give (units): 0 111 to 150 Give (units): 0 151 to 200 Give (units): 2 201 to 250 Give (units): 4 251 to 300 Give (units): 6 301 to 350 Give (units): 8 Greater than 350 Give (units): 10 Call MD if Blood Glucose > : 350 gabapentin 100 mg capsule 200 mg PO BID magnesium hydroxide 400 mg/5 mL Suspension 30 ml PO DAILY PRN (Reason: Constipation) Rx Instructions: if no BM in 3 days bisacodyl 10 mg Suppository 10 mg PA DAILY PRN (Reason: Constipation) calcium carbonate 500 mg calcium (1,250 mg) Tablet,Chewable 1,000 mg PO Q4H PRN (Reason: Heartburn) senna 8.6 mg Capsule 17.2 mg PO BEDTIME PRN (Reason: Constipation) acetaminophen 325 mg Capsule 650 mg PO Q4H PRN (Reason: Pain) naloxone [Narcan] 4 mg/actuation [place],Non-Aerosol 4 mg INTRANASAL Q3M PRN (Reason: Opioid Overdose) Rx Instructions: spray 1 dose into ONE nostril; alternate nostrils w each dose until help arrives cyclobenzaprine 10 mg tablet 10 mg PO BID atorvastatin 20 mg tablet 20 mg PO DAILY@2000 aspirin 81 mg tablet,delayed release (DR/EC) 81 mg PO DAILY@0800 fenofibrate nanocrystallized 145 mg tablet 145 mg PO DAILY@0800 polyethylene glycol 3350 17 gram Powder In Packet 17 g PO DAILY PRN (Reason: Constipation) Qty: 1 0RF Fleet Enema 19-7 gram/118 mL Enema 118 ml PA DAILY PRN (Reason: Constipation) Rx Instructions: if no BM & if bisacodyl supp ineffective hydralazine 25 mg Tablet 25 mg PO Q8H PRN (Reason: BP > 140 systolic) acetaminophen 500 mg Tablet 1,000 mg PO TID (DME) blood pressure monitor Kit See Rx Instructions .Route Qty: 1 0RF Rx Instructions: As directed (DME) chair lift See Rx Instructions .Route .MEDSUPPLY Qty: 1 0RF Rx Instructions: As directed lidocaine 5 % adhesive patch,medicated 1 patch topical DAILY Rx Instructions: leave on most painful area for up to 12 hrs Discontinued hydralazine 25 mg tablet 25 mg PO TID@0800,1300,2000 metformin 500 mg tablet extended release 24 hr 1,000 mg PO BID@0800,2000 Januvia 25 mg tablet 25 mg PO DAILY@0800 furosemide [Lasix] 20 mg Tablet 20 mg PO DAILY benazepril 40 mg tablet 40 mg PO DAILY@2000 Discharge Orders: Discharge Order (Routine); Ordered 10/16/24 Ordered By: Dangelo Dillon Diet: Advance to usual diet Activity on Discharge: As tolerated Stand Alone Forms: Patient Portal Discharge page Print Language: Romanian Care Plan Goals: Complete a course of oral doxycycline as prescribed Health Concerns: Continue all therapies as taken prior to hospitalization. Your hydralazine and benazepril has been held secondary to relative hypotension. These can be resumed by receiving physician at their discretion. Your metformin and Januvia were also held because of poor renal function. These again can be restarted by receiving physician when appropriate Plan of Treatment: Resume plan of care as at residential facility Assessment: See discharge summary
[2024-10-16 11:57] VITALS: BP 132/66; PULSE 64; RESP 20; TEMP 36.4; O2SAT 100
[2024-10-16 11:57] LABS: Glucose, Whole Blood 107 mg/dL (60-115)
== END 2024-10-16 12:10 | disposition skilled nursing facility (03) | DRG 871 ==
LOC: HO.ED 17:27 → HO.EDOVER 19:19 → HO.ICU 19:22 → HO.IMC 10-14 13:47
PROVIDERS: Hospitalist; Nurse Practitioner Family; Registered Nurse Community Health; Admitting Provider Internal Medicine Pulmonary Disease; Emergency Provider Emergency Medicine; PCP Internal Medicine; Visit Provider Hospitalist
DX: A41.9 Sepsis, unspecified organism (principal); J18.9 Pneumonia, unspecified organism; J96.01 Acute respiratory failure with hypoxia; N17.0 Acute kidney failure with tubular necrosis; R65.21 Severe sepsis with septic shock; I12.9 Hypertensive chronic kidney disease with stage 1 through stage 4 chronic kidney disease, or unspecified chronic kidney disease; L89.151 Pressure ulcer of sacral region, stage 1; L89.616 Pressure-induced deep tissue damage of right heel; L89.516 Pressure-induced deep tissue damage of right ankle; E11.42 Type 2 diabetes mellitus with diabetic polyneuropathy; N18.30 Chronic kidney disease, stage 3 unspecified; E78.5 Hyperlipidemia, unspecified; E83.39 Other disorders of phosphorus metabolism; E11.22 Type 2 diabetes mellitus with diabetic chronic kidney disease; Z20.822 Contact with and (suspected) exposure to COVID-19; Z87.891 Personal history of nicotine dependence; Z79.4 Long term (current) use of insulin; Z79.82 Long term (current) use of aspirin; Z79.899 Other long term (current) drug therapy
CPT/HCPCS: 0241U; 36415; 70450; 70491; 71045; 71250; 74176; 74177; 80048; 80053; 80076; 80202; 81003; 82040; 82550; 82565; 82803; 82947; 83036; 83605; 83690; 83735; 83880; 84100; 84132; 84145; 84443; 84484; 85007; 85025; 85027; 86140; 87040; 92526; 92610; 93005; 93306; 97110; 97162; 97163; 97530; 99285; J0613; J1644; J2185; J2270; J3370; J3371; J3475; J7120; P9047; Q9957; Q9967

== ENCOUNTER → 2024-10-07 14:18 | Outpatient (BNV) | payer OTHER, SELFPAY | PROVIDERS: Emergency Provider Emergency Medicine; Visit Provider Radiology Diagnostic Radiology | DX: N32.89 Other specified disorders of bladder (principal); R19.5 Other fecal abnormalities; A41.9 Sepsis, unspecified organism; R53.1 Weakness | CPT/HCPCS: 71045; 74176 ==

== ENCOUNTER → 2024-10-07 15:07 | Outpatient (BNV) | payer OTHER, SELFPAY | PROVIDERS: Admitting Provider Internal Medicine Pulmonary Disease; Emergency Provider Emergency Medicine; PCP Internal Medicine; Visit Provider Internal Medicine | DX: Z13.6 Encounter for screening for cardiovascular disorders (principal) | CPT/HCPCS: 93010 ==

== ENCOUNTER 2024-10-07 18:55 | Outpatient (BNV) | payer OTHER, SELFPAY | END 2024-10-14 00:18 | PROVIDERS: Admitting Provider Internal Medicine Pulmonary Disease; Emergency Provider Emergency Medicine; PCP Internal Medicine; Visit Provider General Practice | DX: J90 Pleural effusion, not elsewhere classified (principal); R79.9 Abnormal finding of blood chemistry, unspecified | CPT/HCPCS: 70491 ==

== ENCOUNTER 2024-10-07 18:55 | Outpatient (BNV) | payer OTHER, SELFPAY | END 2024-10-14 17:00 | PROVIDERS: Admitting Provider Internal Medicine Pulmonary Disease; Emergency Provider Emergency Medicine; PCP Internal Medicine; Visit Provider Internal Medicine Cardiovascular Disease | DX: I51.89 Other ill-defined heart diseases (principal); I95.9 Hypotension, unspecified; I51.7 Cardiomegaly | CPT/HCPCS: 93306 ==

== ENCOUNTER 2024-10-07 18:55 | Outpatient (BNV) | payer OTHER, SELFPAY | END 2024-10-11 09:23 | PROVIDERS: Admitting Provider Internal Medicine Pulmonary Disease; Emergency Provider Emergency Medicine; PCP Internal Medicine; Visit Provider Radiology Diagnostic Radiology | DX: J18.1 Lobar pneumonia, unspecified organism (principal); J90 Pleural effusion, not elsewhere classified; R19.5 Other fecal abnormalities | CPT/HCPCS: 71250; 74177 ==

== ENCOUNTER 2024-10-07 18:55 | Outpatient (BNV) | payer OTHER, SELFPAY | END 2024-10-12 10:28 | PROVIDERS: Admitting Provider Internal Medicine Pulmonary Disease; Emergency Provider Emergency Medicine; PCP Internal Medicine; Visit Provider Radiology Diagnostic Radiology | DX: R79.9 Abnormal finding of blood chemistry, unspecified (principal); H61.23 Impacted cerumen, bilateral | CPT/HCPCS: 70450 ==

== ENCOUNTER → 2024-10-07 18:55 | Outpatient (BNV) | payer OTHER, SELFPAY | PROVIDERS: Admitting Provider Internal Medicine Pulmonary Disease; Emergency Provider Emergency Medicine; PCP Internal Medicine; Visit Provider Hospitalist | DX: J18.9 Pneumonia, unspecified organism (principal); J96.01 Acute respiratory failure with hypoxia; A41.9 Sepsis, unspecified organism; R65.20 Severe sepsis without septic shock | CPT/HCPCS: 99233; 99239; 99499 ==

== ENCOUNTER → 2024-10-07 18:55 | Outpatient (BNV) | payer OTHER, SELFPAY | PROVIDERS: Admitting Provider Internal Medicine Pulmonary Disease; Emergency Provider Emergency Medicine; PCP Internal Medicine; Visit Provider Internal Medicine Pulmonary Disease | DX: A41.9 Sepsis, unspecified organism (principal); R65.20 Severe sepsis without septic shock; N17.9 Acute kidney failure, unspecified; E11.42 Type 2 diabetes mellitus with diabetic polyneuropathy; Z79.4 Long term (current) use of insulin | CPT/HCPCS: 99291 ==

== ENCOUNTER → 2024-10-07 18:55 | Outpatient (BNV) | payer OTHER, SELFPAY | PROVIDERS: Admitting Provider Internal Medicine Pulmonary Disease; Emergency Provider Emergency Medicine; PCP Internal Medicine; Visit Provider Nurse Practitioner Family | DX: N17.9 Acute kidney failure, unspecified (principal); A41.9 Sepsis, unspecified organism; R65.20 Severe sepsis without septic shock; I95.9 Hypotension, unspecified; T68.XXXA Hypothermia, initial encounter; R79.82 Elevated C-reactive protein (CRP) | CPT/HCPCS: 99223 ==

== ENCOUNTER 2024-10-20 13:19 | Outpatient (REF) | payer OTHER, SELFPAY ==
--- OUTSIDE RECORDS SUMMARY | 2024-10-20 15:48 | XMS_ITS | Encounter Summary ---
Author Organization [facility] Address [address] [place] [address] Care Team Providers Care Office Assistant Receptionist Name Role Phone Tram Álvarez MD Primary Care Provider [phone] Encounter Details Date Type Department Care Team (Late st Contact Info) Description 10/07/2024 Lab Requisition [facility] - Main Lab [address] [facility] [place] [address] Prince Le MD [address] [facility] [address] [place], [address] Type 2 diabetes mellitus without complications (CMS/HCC V24, CMS/HCC V28) Social History Tobacco Use Types Packs/Day Years Used Date Smoking Tobacco: Never Assessed Sex and Gender Information Value Date Recorded Sex Assigned at Not on file Legal Sex Male 1:13 PM EST Gender Identity Not on file Sexual Orientation Not on file documented as of this encounter Plan of Treatment Not on file documented as of this encounter Visit Diagnoses Diagnosis Type 2 diabetes mellitus without complications (CMS/HCC V24, CMS/HCC V28) documented in this encounter Care Teams Office Assistant Receptionist Relationship Specialty Start Date End Date Tram Álvarez MD [address] [place] [address] , [address] [facility] Physician Associ D/B/A: [facility] [place], [place] PCP - General Internal Medicine 03/30/18 documented as of this encounter
--- OUTSIDE RECORDS SUMMARY | 2024-10-20 15:48 | XMS_ITS | Clinical Summary ---
Author Organization [facility] Address [address] [place] [address] Care Team Providers Care Emergency Medicine Medical Director Name Role Phone Sade Dykes PA-C Primary Care Provider [phone] Source Comments PLEASE NOTE, if this patient [...] 60 Tab 0 12/01/19 14 Active Acidophilus-Pectin, [place] 25 million-100 cell-mg tabIndications:Dive rticulosis Take 1 tablet by mouth 2 (two) times daily. As directed by boating safety officer 100 tablet 3 01/31/20 14 Active benazepril [...] 01/05/2013 Cataract 01/05/2013 Cervical radiculopathy 01/05/2013 Immunizations Immunization Administration Dates Next Due INFLUENZA, SEASONAL, INJECTABLE [...] Plan of Treatment Not on file Insurance [id number] Care Teams Emergency Medicine Medical Director Relationship Specialty Start Date End Date Sade Dykes PA-C [address] [place] [address] [facility] - General 04/14/13
--- OUTSIDE RECORDS SUMMARY | 2024-10-20 15:48 | XMS_ITS | Encounter Summary ---
Author Organization [facility] Address [address] [place] [address] Care Team Providers Care Psychotherapist Social Worker Name Role Phone Tram Álvarez MD Primary Care Provider [phone] Encounter Details Date Type Department Care Team (Late st Contact Info) Description 07/16/[address] [facility] - Main Lab [address] [place] [address] Prince Le MD 38 [facility] [address] [place], [address] Type 2 diabetes mellitus without complications [...] mg/dL LAB CHEMISTRY METHOD 07/16/2024 12:50 PM [facility] Blood Venous blood specimen / Unknown Venipuncture / Unknown 07/16/2024 8:00 AM EST 07/16/2024 11:21 AM EST us Prince Le MD LAB BLOOD ORDERABLES Final Resul t [facility] [address] [place] [address], [place] [phone] * (ABNORMAL) Comprehensive metabolic panel (07/16/2024 8:00 AM EST) Sodium 137 133 - 145 mmol/L LAB CHEMISTRY METHOD 07/16/2024 1:13 PM [facility] Potassium 5.1 3.5 - 5.5 mmol/L LAB CHEMISTRY METHOD 07/16/2024 1:13 PM [facility] Chloride 103 96 - 110 mmol/L LAB CHEMISTRY METHOD 07/16/2024 1:13 PM [facility] CO2 27 21 - 32 mmol/L LAB CHEMISTRY METHOD 07/16/2024 1:13 PM [facility] Anion Gap 7 3 - 11 LAB CHEMISTRY METHOD 07/16/2024 1:13 PM [facility] Glucose 40(L) 70 - 100 mg/dL LAB CHEMISTRY METHOD 07/16/2024 1:13 PM [facility] BUN 35(H) 5 - 25 mg/dL LAB CHEMISTRY METHOD 07/16/2024 1:13 PM [facility] Creatinine 1.27 0.70 - 1.30 mg/dL LAB CHEMISTRY METHOD 07/16/2024 1:13 PM [facility] LAB eGFR 62 >=60 mL/min/1. 73m2 LAB CHEMISTRY METHOD 07/16/2024 1:13 PM [facility] Comment:Calculation based on the??Chronic Kidney Disease Epidemiology Collaboration (CKD-EPI) equation refit??without adjustment for race. BUN/Creatinine Ratio 27.6 LAB CHEMISTRY METHOD 07/16/2024 1:13 PM [facility] Calcium 9.0 8.5 - 10.5 mg/dL LAB CHEMISTRY METHOD 07/16/2024 1:13 PM [facility] AST (SGOT) 18 10 - 42 unit/L LAB CHEMISTRY METHOD 07/16/2024 1:13 PM [facility] ALT (SGPT) 19 10 - 60 unit/L LAB CHEMISTRY METHOD 07/16/2024 1:13 PM [facility] Alkaline Phosphatase 62 42 - 121 unit/L LAB CHEMISTRY METHOD 07/16/2024 1:13 PM [facility] Total Protein 6.7 6.0 - 8.0 g/dL LAB CHEMISTRY METHOD 07/16/2024 1:13 PM [facility] Albumin 3.5 3.2 - 5.0 g/dL LAB CHEMISTRY METHOD 07/16/2024 1:13 PM [facility] Total Bilirubin 0.4 0.0 - 1.4 mg/dL LAB CHEMISTRY METHOD 07/16/2024 1:13 PM [facility] Blood Venous blood specimen / Unknown Venipuncture / Unknown 07/16/2024 8:00 AM EST 07/16/2024 11:21 AM EST us Prince Le MD LAB BLOOD ORDERABLES Final Resul t [facility] [address] [place] [address], * (ABNORMAL) Complete blood count (07/16/2024 8:00 AM EST) WBC 10.9(H) 4.8 - 10.8 K/mcL LAB HEMETOLOGY METHOD 07/16/2024 11:53 AM EST [facility] RBC 4.90 4.50 - 5.50 M/mcL LAB HEMETOLOGY METHOD 07/16/2024 11:53 AM [facility] Hemoglobin 13.4(L) 13.5 - 17.5 g/dL LAB HEMETOLOGY METHOD 07/16/2024 11:53 AM [facility] Hematocrit 41.6(L) 42.0 - 54.0 % LAB HEMETOLOGY METHOD 07/16/2024 11:53 AM [facility] MCV 85.1 79.0 - 98.0 FL LAB HEMETOLOGY METHOD 07/16/2024 11:53 AM [facility] MCH 27.4 27.0 - 32.0 pcg LAB HEMETOLOGY METHOD 07/16/2024 11:53 AM [facility] MCHC 32.2 32.0 - 37.0 g/dL LAB HEMETOLOGY METHOD 07/16/2024 11:53 AM [facility] RDW 18.3(H) 11.0 - 15.0 % LAB HEMETOLOGY METHOD 07/16/2024 11:53 AM [facility] Platelets 413(H) 130 - 400 K/mcL LAB HEMETOLOGY METHOD 07/16/2024 11:53 AM [facility] MPV 12.4(H) 7.0 - 11.0 FL LAB HEMETOLOGY METHOD 07/16/2024 11:53 AM [facility] NRBC 0.0 <1.0 % LAB HEMETOLOGY METHOD 07/16/2024 11:53 AM [facility] NRBC Absolute 0.00 <0.10 K/mcL LAB HEMETOLOGY METHOD 07/16/2024 11:53 AM [facility] Blood Venous blood specimen / Unknown Venipuncture / Unknown 07/16/2024 8:00 AM EST 07/16/2024 11:21 AM EST us Prince Le MD LAB BLOOD ORDERABLES Final Resul t [facility] [address] [place] [address], [place] [phone] documented in this encounter Visit Diagnoses Diagnosis Type 2 diabetes mellitus without complications (CMS/HCC V24, CMS/HCC V28) documented in this encounter Care Teams Psychotherapist Social Worker Relationship Specialty Start Date End Date Tram Álvarez MD [address] [facility] , [address] [facility] Physician Associ D/B/A: [facility] JAS Duque PCP - General Internal Medicine 03/30/18 documented as of this encounter
--- OUTSIDE RECORDS SUMMARY | 2024-10-20 15:48 | XMS_ITS | Encounter Summary ---
Author Organization [facility] Address [address] [place] [address] Care Team Providers Care Health Actuary Name Role Phone Tram Álvarez MD Primary Care Provider [phone] Encounter Details Date Type Department Care Team (Late st Contact Info) Description 07/22/[address] [facility] - Main Lab [address] [place] [address] Prince Le MD [address] [facility] [address] [place], [address] Type 2 diabetes mellitus without complications [...] mg/dL LAB CHEMISTRY METHOD 07/23/2024 10:47 AM [facility] Blood Venous blood specimen / Unknown Venipuncture / Unknown 07/23/2024 6:52 AM EST 07/23/2024 9:26 AM EST us Prince Le MD LAB BLOOD ORDERABLES Final Resul t [facility] [address] [place] [address], * (ABNORMAL) Comprehensive metabolic panel (07/23/2024 6:52 AM EST) Sodium 137 133 - 145 mmol/L LAB CHEMISTRY METHOD 07/23/2024 10:47 AM [facility] Potassium 5.3 3.5 - 5.5 mmol/L LAB CHEMISTRY METHOD 07/23/2024 10:47 AM [facility] Chloride 102 96 - 110 mmol/L LAB CHEMISTRY METHOD 07/23/2024 10:47 AM [facility] CO2 28 21 - 32 mmol/L LAB CHEMISTRY METHOD 07/23/2024 10:47 AM [facility] Anion Gap 7 3 - 11 LAB CHEMISTRY METHOD 07/23/2024 10:47 AM [facility] Glucose 78 70 - 100 mg/dL LAB CHEMISTRY METHOD 07/23/2024 10:47 AM [facility] BUN 39(H) 5 - 25 mg/dL LAB CHEMISTRY METHOD 07/23/2024 10:47 AM [facility] Creatinine 1.58(H) 0.70 - 1.30 mg/dL LAB CHEMISTRY METHOD 07/23/2024 10:47 AM [facility] eGFR 47(L) >=60 mL/min/1. 73m2 LAB CHEMISTRY METHOD 07/23/2024 10:47 AM [facility] Comment:Calculation based on the??Chronic Kidney Disease Epidemiology Collaboration (CKD-EPI) equation refit??without adjustment for race. BUN/Creatinine Ratio 24.7 LAB CHEMISTRY METHOD 07/23/2024 10:47 AM [facility] Calcium 9.5 8.5 - 10.5 mg/dL LAB CHEMISTRY METHOD 07/23/2024 10:47 AM [facility] AST (SGOT) 25 10 - 42 unit/L LAB CHEMISTRY METHOD 07/23/2024 10:47 AM [facility] ALT (SGPT) 26 10 - 60 unit/L LAB CHEMISTRY METHOD 07/23/2024 10:47 AM [facility] Alkaline Phosphatase 68 42 - 121 unit/L LAB CHEMISTRY METHOD 07/23/2024 10:47 AM [facility] Total Protein 6.9 6.0 - 8.0 g/dL LAB CHEMISTRY METHOD 07/23/2024 10:47 AM [facility] Albumin 3.5 3.2 - 5.0 g/dL LAB CHEMISTRY METHOD 07/23/2024 10:47 AM [facility] Total Bilirubin 0.4 0.0 - 1.4 mg/dL LAB CHEMISTRY METHOD 07/23/2024 10:47 AM [facility] Blood Venous blood specimen / Unknown Venipuncture / Unknown 07/23/2024 6:52 AM EST 07/23/2024 9:26 AM EST us Prince Le MD LAB BLOOD ORDERABLES Final Resul t [facility] [address] [place] [address], * (ABNORMAL) Complete blood count (07/23/2024 6:52 AM EST) WBC 9.2 4.8 - 10.8 K/mcL LAB HEMETOLOGY METHOD 07/23/2024 10:13 AM [facility] RBC 4.90 4.50 - 5.50 M/mcL LAB HEMETOLOGY METHOD 07/23/2024 10:13 AM [facility] Hemoglobin 13.6 13.5 - 17.5 g/dL LAB HEMETOLOGY METHOD 07/23/2024 10:13 AM [facility] Hematocrit 41.2(L) 42.0 - 54.0 % LAB HEMETOLOGY METHOD 07/23/2024 10:13 AM [facility] MCV 83.7 79.0 - 98.0 FL LAB HEMETOLOGY METHOD 07/23/2024 10:13 AM [facility] MCH 27.6 27.0 - 32.0 pcg LAB HEMETOLOGY METHOD 07/23/2024 10:13 AM [facility] MCHC 33.0 32.0 - 37.0 g/dL LAB HEMETOLOGY METHOD 07/23/2024 10:13 AM [facility] RDW 19.0(H) 11.0 - 15.0 % LAB HEMETOLOGY METHOD 07/23/2024 10:13 AM [facility] Platelets 364 130 - 400 K/mcL LAB HEMETOLOGY METHOD 07/23/2024 10:13 AM [facility] MPV 12.2(H) 7.0 - 11.0 FL LAB HEMETOLOGY METHOD 07/23/2024 10:13 AM [facility] NRBC 0.0 <1.0 % LAB HEMETOLOGY METHOD 07/23/2024 10:13 AM [facility] NRBC Absolute 0.00 <0.10 K/mcL LAB HEMETOLOGY METHOD 07/23/2024 10:13 AM [facility] Blood Venous blood specimen / Unknown Venipuncture / Unknown 07/23/2024 6:52 AM EST 07/23/2024 9:26 AM EST us Prince Le MD LAB BLOOD ORDERABLES Final [facility]ul [facility] [address] [place] [address], documented in this encounter Visit Diagnoses Diagnosis Type 2 diabetes mellitus without complications (CMS/HCC V24, CMS/HCC V28) documented in this encounter Care Teams Health Actuary Relationship Specialty Start Date End Date Tram Álvarez MD 2 [facility] , [address] [facility] Physician Associ D/B/A: [facility] JAS Duque PCP - General Internal Medicine 03/30/18 documented as of this encounter
--- OUTSIDE RECORDS SUMMARY | 2024-10-20 15:48 | XMS_ITS | Encounter Summary ---
Author Organization [facility] Address [address] [place] [address] Care Team Providers Care Director Bioinformatics Name Role Phone Tram Álvarez MD Primary Care Provider [phone] Encounter Details Date Type Department Care Team (Late st Contact Info) Description 05/28/2024 Lab Requisition [facility] - Main Lab [address] [place] [address] Prince Le MD 38 [facility] [address] [place], [address] Essential (primary) hypertension Social History Tobacco [...] LAB CHEMISTRY METHOD 05/31/2024 11:[address] [facility] Potassium 4.5 3.5 - 5.5 mmol/L LAB CHEMISTRY METHOD 05/31/2024 11:[address] [facility] Chloride 108 96 - 110 mmol/L LAB CHEMISTRY METHOD 05/31/2024 11:37 AM [facility] CO2 28 21 - 32 mmol/L LAB CHEMISTRY METHOD 05/31/2024 11:37 AM [facility] Anion Gap 6 3 - 11 LAB CHEMISTRY METHOD 05/31/2024 11:37 AM [facility] Glucose 104(H) 70 - 100 mg/dL LAB CHEMISTRY METHOD 05/31/2024 11:37 AM [facility] BUN 25 5 - 25 mg/dL LAB CHEMISTRY METHOD 05/31/2024 11:37 AM [facility] Creatinine 1.15 0.70 - 1.30 mg/dL LAB CHEMISTRY METHOD 05/31/2024 11:37 AM [facility] eGFR 69 >=60 mL/min/1. 73m2 LAB CHEMISTRY METHOD 05/31/2024 11:37 AM [facility] Comment:Calculation based on the??Chronic Kidney Disease Epidemiology Collaboration (CKD-EPI) equation refit??without adjustment for race. BUN/Creatinine Ratio 21.7 LAB CHEMISTRY METHOD 05/31/2024 11:37 AM [facility] Calcium 9.2 8.5 - 10.5 mg/dL LAB CHEMISTRY METHOD 05/31/2024 11:37 AM [facility] Blood Venous blood specimen / Unknown Venipuncture / Unknown 05/31/2024 7:20 AM EST 05/31/2024 10:13 AM EST us Prince Le MD LAB BLOOD ORDERABLES Final Resul t [facility] [address] [place] [address], * (ABNORMAL) Complete blood count (05/31/2024 7:20 AM EST) WBC 8.8 4.8 - 10.8 K/mcL LAB HEMETOLOGY METHOD 05/31/2024 10:39 AM [facility] RBC 5.10 4.50 - 5.50 M/mcL LAB HEMETOLOGY METHOD 05/31/2024 10:39 AM [facility] Hemoglobin 14.2 13.5 - 17.5 g/dL LAB HEMETOLOGY METHOD 05/31/2024 10:39 AM [facility] Hematocrit 44.7 42.0 - 54.0 % LAB HEMETOLOGY METHOD 05/31/2024 10:39 AM [facility] MCV 87.0 79.0 - 98.0 FL LAB HEMETOLOGY METHOD 05/31/2024 10:39 AM [facility] MCH 27.6 27.0 - 32.0 pcg LAB HEMETOLOGY METHOD 05/31/2024 10:39 AM [facility] MCHC 31.8(L) 32.0 - 37.0 g/dL LAB HEMETOLOGY METHOD 05/31/2024 10:39 AM [facility] RDW 16.5(H) 11.0 - 15.0 % LAB HEMETOLOGY METHOD 05/31/2024 10:39 AM [facility] Platelets 242 130 - 400 K/mcL LAB HEMETOLOGY METHOD 05/31/2024 10:39 AM [facility] MPV 12.5(H) 7.0 - 11.0 FL LAB HEMETOLOGY METHOD 05/31/2024 10:39 AM [facility] NRBC 0.0 <1.0 % LAB HEMETOLOGY METHOD 05/31/2024 10:39 AM [facility] NRBC Absolute 0.00 <0.10 K/mcL LAB HEMETOLOGY METHOD 05/31/2024 10:39 AM [facility] Blood Venous blood specimen / Unknown Venipuncture / Unknown 05/31/2024 7:20 AM EST 05/31/2024 10:16 AM EST us Prince Le MD LAB BLOOD ORDERABLES Final Resul t [facility] [address] [place] [address], [place] [phone] documented in this encounter Visit Diagnoses Diagnosis Essential (primary) hypertension Unspecified essential hypertension documented in this encounter Care Teams Director Bioinformatics Relationship Specialty Start Date End Date Tram Álvarez MD 2 [facility] , [address] [facility] Physician Associ D/B/A: [facility] JAS Duque PCP - General Internal Medicine 03/30/18 documented as of this encounter
--- OUTSIDE RECORDS SUMMARY | 2024-10-20 15:48 | XMS_ITS | Clinical Summary ---
Author Organization [facility] Address [address] [place] [address] Care Team Providers Care Director Compensation Name Role Phone Tram Royal MD Primary [...] age to complete this topic Care Teams Director Compensation Relationship Specialty Start Date End Date Tram Royal MD 2 [facility] , [address] [facility] Physician Associ D/B/A: [facility] [place] [address] PCP - General Internal Medicine 03/30/18
--- OUTSIDE RECORDS SUMMARY | 2024-10-20 15:48 | XMS_ITS | Encounter Summary ---
Author Organization [facility] Address [address] [place] [address] Care Team Providers Care General Forecaster Name Role Phone Tram Álvarez MD Primary Care Provider [phone] Encounter Details Date Type Department Care Team (Late st Contact Info) Description 05/21/2024 Lab Requisition [facility] - Main Lab [address] [place] [address] Prince Le MD 38 [facility] [address] [place], [address] Essential (primary) hypertension Social History Tobacco [...] LAB CHEMISTRY METHOD 05/24/2024 9:02 AM EST [facility] Potassium 4.2 3.5 - 5.5 mmol/L LAB CHEMISTRY METHOD 05/24/2024 9:02 AM EST [facility] Chloride 109 96 - 110 [...] Resul t [facility] [address] [place] [address], * (ABNORMAL) Complete blood count (05/24/2024 6:00 AM EST) WBC 9.3 4.8 - 10.8 K/mcL LAB HEMETOLOGY METHOD 05/24/2024 9:03 AM [facility] RBC 4.90 4.50 - 5.50 M/[facility] LAB HEMETOLOGY METHOD 05/24/2024 9:03 AM [...] HOSPITAL LAB Platelets 249 130 - 400 K/[facility] LAB HEMETOLOGY METHOD 05/24/2024 9:03 AM [facility] MPV 13.1(H) 7.0 - 11.0 FL LAB HEMETOLOGY METHOD 05/24/2024 9:03 AM [facility] NRBC 0.0 <1.0 % LAB HEMETOLOGY METHOD 05/24/2024 9:03 AM [facility] NRBC Absolute 0.00 <0.10 K/[facility] LAB HEMETOLOGY METHOD 05/24/2024 9:03 AM [facility] Blood Venous blood specimen / Unknown Venipuncture / Unknown 05/24/2024 6:00 AM EST 05/24/2024 7:45 AM EST us Prince Le MD LAB BLOOD ORDERABLES Final Resul t [facility] [address] [place] [address], documented in this encounter Visit Diagnoses Diagnosis Essential (primary) hypertension Unspecified essential hypertension documented in this encounter Care Teams General Forecaster Relationship Specialty Start Date End Date Tram Álvarez MD 2 [facility] , [address] [place] [address] Physician Associ D/B/A: [facility] JAS Duque PCP - General Internal Medicine 03/30/18 documented as of this encounter
--- OUTSIDE RECORDS SUMMARY | 2024-10-20 15:48 | XMS_ITS | Encounter Summary ---
Author Organization [facility] Address [address] [place] [address] Care Team Providers Care Retail Merchandising Coordinator Name Role Phone Tram Álvarez MD Primary Care Provider [phone] Encounter Details Date Type Department Care Team (Late st Contact Info) Description 10/18/2024 Lab Requisition [facility] - Main Lab [address] [place] [address] Preeti Lujan MD [address] [id number] Sepsis, unspecified organism (CMS/HCC V24, CMS/HCC V28) Social History Tobacco [...] Associated Diagnosis Comments COMPLETE BLOOD COUNT Routine 10/18/2024 9:03 AM EDT Sepsis, unspecified organism (CMS/HCC V24, CMS/HCC V28) BASIC METABOLIC PANEL Routine 10/18/2024 9:03 AM EDT Sepsis, unspecified organism (CMS/HCC V24, CMS/HCC V28) documented in this encounter Results * (ABNORMAL) Basic metabolic panel (10/18/2024 9:03 AM EDT) Sodium 142 133 - 145 mmol/L LAB CHEMISTRY METHOD 10/18/2024 1:15 PM EDT [facility] ([facility]) [facility] Potassium 4.0 3.5 - 5.5 mmol/L LAB CHEMISTRY METHOD 10/18/2024 1:15 PM [facility] Chloride 113(H) 96 - 110 mmol/L LAB CHEMISTRY METHOD 10/18/2024 1:15 PM [facility] CO2 22 21 - 32 mmol/L LAB CHEMISTRY METHOD 10/18/2024 1:15 PM [facility] Anion Gap 7 3 - 11 LAB CHEMISTRY METHOD 10/18/2024 1:15 PM [facility] Glucose 114(H) 70 - 100 mg/dL LAB CHEMISTRY METHOD 10/18/2024 1:15 PM [facility] BUN 12 5 - 25 mg/dL LAB CHEMISTRY METHOD 10/18/2024 1:15 PM [facility] Creatinine 0.58(L) 0.70 - 1.30 mg/dL LAB CHEMISTRY METHOD 10/18/2024 1:15 PM [facility] eGFR 106 >=60 mL/min/1. 73m2 LAB CHEMISTRY METHOD 10/18/2024 1:15 PM [facility] Comment:Calculation based on the??Chronic Kidney Disease Epidemiology Collaboration (CKD-EPI) equation refit??without adjustment for race. BUN/Creatinine Ratio 20.7 LAB CHEMISTRY METHOD 10/18/2024 1:15 PM [facility] Calcium 8.7 8.5 - 10.5 mg/dL LAB CHEMISTRY METHOD 10/18/2024 1:15 PM [facility] Blood Venous blood specimen / Unknown Venipuncture / Unknown 10/18/2024 9:03 AM EDT 10/18/2024 11:02 AM EDT us Preeti Lujan MD LAB BLOOD ORDERABLES Fin al Result [facility] [address] [place], [place] [address] [phone] * (ABNORMAL) Complete blood count (10/18/2024 9:03 AM EDT) [facility] WBC 5.9 4.8 - 10.8 K/mcL LAB HEMETOLOGY METHOD [facility] RBC 3.40(L) 4.50 - 5.50 M/mcL LAB HEMETOLOGY METHOD [facility] Hemoglobin 10.1(L) 13.5 - 17.5 g/dL LAB HEMETOLOGY METHOD 10/18/2024 1:35 PM [facility] Hematocrit 32.3(L) 42.0 - 54.0 % LAB HEMETOLOGY METHOD 10/18/2024 1:35 PM [facility] MCV 96.4 79.0 - 98.0 FL LAB HEMETOLOGY METHOD 10/18/2024 1:35 PM EDT [facility] MCH 30.1 27.0 - 32.0 pcg LAB HEMETOLOGY METHOD 10/18/2024 1:35 PM [facility] MCHC 31.3(L) 32.0 - 37.0 g/dL LAB HEMETOLOGY METHOD 10/18/2024 1:35 PM [facility] RDW 18.2(H) 11.0 - 15.0 % LAB HEMETOLOGY METHOD [facility]24 [facility] Platelets 275 130 - 400 K/mcL LAB HEMETOLOGY METHOD 10/18/2024 1:35 PM [facility] MPV 13.2(H) 7.0 - 11.0 FL LAB HEMETOLOGY METHOD 10/18/2024 1:35 PM [facility] NRBC 0.0 <1.0 % LAB HEMETOLOGY METHOD 10/18/2024 1:35 PM EDT [facility] NRBC Absolute 0.00 <0.10 K/mcL LAB HEMETOLOGY METHOD 10/18/2024 1:35 PM EDT [facility] Blood Venous blood specimen / Unknown Venipuncture / Unknown 10/18/2024 9:03 AM EDT 10/18/2024 11:02 AM EDT us Preeti Lujan MD LAB BLOOD ORDERABLES Fin al Result [facility] [address] [place] [address], documented in this encounter Visit Diagnoses Diagnosis Sepsis, unspecified organism (CMS/HCC V24, CMS/HCC V28) documented in this encounter Care Teams Retail Merchandising Coordinator Relationship Specialty Start Date End Date Tram Álvarez MD 2 [facility] , [address] [facility] Physician Associ D/B/A: [facility] JAS Duque PCP - General Internal Medicine 03/30/18 documented as of this encounter
--- OUTSIDE RECORDS SUMMARY | 2024-10-20 15:48 | XMS_ITS | Encounter Summary ---
Author Organization [facility] Address [address] [place] [address] Care Team Providers Care Master Dyer Name Role Phone Tram Álvarez MD Primary Care Provider [phone] Encounter Details Date Type Department Care Team (Late st Contact Info) Description 07/29/2024 Lab Requisition [facility] - Main Lab [address] [place] [address] Prince Le MD 38 [facility] [address] [place], [address] Type 2 diabetes mellitus without complications [...] mg/dL LAB CHEMISTRY METHOD 07/30/2024 10:25 AM [facility] Blood Venous blood specimen / Unknown Venipuncture / Unknown 07/30/2024 7:30 AM EST 07/30/2024 9:39 AM EST us Prince Le MD LAB BLOOD ORDERABLES Final Resul t [facility] [address] [place] [address], [place] [phone] * (ABNORMAL) Comprehensive metabolic panel (07/30/2024 7:30 AM EST) Sodium 140 133 - 145 mmol/L LAB CHEMISTRY METHOD 07/30/2024 10:25 AM [facility] Potassium 5.1 3.5 - 5.5 mmol/L LAB CHEMISTRY METHOD 07/30/2024 10:25 AM [facility] Chloride 107 96 - 110 mmol/L LAB CHEMISTRY METHOD 07/30/2024 10:25 AM [facility] CO2 31 21 - 32 mmol/L LAB CHEMISTRY METHOD 07/30/2024 10:25 AM [facility] Anion Gap 2(L) 3 - 11 LAB CHEMISTRY METHOD 07/30/2024 10:25 AM [facility] Glucose 76 70 - 100 mg/dL LAB CHEMISTRY METHOD 07/30/2024 10:25 AM [facility] BUN 28(H) 5 - 25 mg/dL LAB CHEMISTRY METHOD 07/30/2024 10:25 AM [facility] Creatinine 1.13 0.70 - 1.30 mg/dL LAB CHEMISTRY METHOD 07/30/2024 10:25 AM [facility] eGFR 71 >=60 mL/min/1. 73m2 LAB CHEMISTRY METHOD 07/30/2024 10:25 AM [facility] Comment:Calculation based on the??Chronic Kidney Disease Epidemiology Collaboration (CKD-EPI) equation refit??without adjustment for race. BUN/Creatinine Ratio 24.8 LAB CHEMISTRY METHOD 07/30/2024 10:25 AM [facility] Calcium 9.5 8.5 - 10.5 mg/dL LAB CHEMISTRY METHOD 07/30/2024 10:25 AM [facility] AST (SGOT) 28 10 - 42 unit/L LAB CHEMISTRY METHOD 07/30/2024 10:25 AM [facility] ALT (SGPT) 24 10 - 60 unit/L LAB CHEMISTRY METHOD 07/30/2024 10:25 AM [facility] Alkaline Phosphatase 62 42 - 121 unit/L LAB CHEMISTRY METHOD 07/30/2024 10:25 AM [facility] Total Protein 6.4 6.0 - 8.0 g/dL LAB CHEMISTRY METHOD 07/30/2024 10:25 AM [facility] Albumin 3.2 3.2 - 5.0 g/dL LAB CHEMISTRY METHOD 07/30/2024 10:25 AM [facility] Total Bilirubin 0.4 0.0 - 1.4 mg/dL LAB CHEMISTRY METHOD 07/30/2024 10:25 AM [facility] Blood Venous blood specimen / Unknown Venipuncture / Unknown 07/30/2024 7:30 AM EST 07/30/2024 9:39 AM EST us Prince Le MD LAB BLOOD ORDERABLES Final Resul t [facility] [address] [place] [address], * (ABNORMAL) Complete blood count (07/30/2024 7:30 AM EST) WBC 8.9 4.8 - 10.8 K/mcL LAB HEMETOLOGY METHOD 07/30/2024 9:55 AM EST [facility] RBC 4.30(L) 4.50 - 5.50 M/mcL LAB HEMETOLOGY METHOD 07/30/2024 9:55 AM [facility] Hemoglobin 12.1(L) 13.5 - 17.5 g/dL LAB HEMETOLOGY METHOD 07/30/2024 9:55 AM [facility] Hematocrit 36.5(L) 42.0 - 54.0 % LAB HEMETOLOGY METHOD 07/30/2024 9:55 AM [facility] MCV 84.3 79.0 - 98.0 FL LAB HEMETOLOGY METHOD 07/30/2024 9:55 AM [facility] MCH 27.9 27.0 - 32.0 pcg LAB HEMETOLOGY METHOD 07/30/2024 9:55 AM [facility] MCHC 33.2 32.0 - 37.0 g/dL LAB HEMETOLOGY METHOD 07/30/2024 9:55 AM [facility] RDW 19.4(H) 11.0 - 15.0 % LAB HEMETOLOGY METHOD 07/30/2024 9:55 AM [facility] Platelets 315 130 - 400 K/mcL LAB HEMETOLOGY METHOD 07/30/2024 9:55 AM [facility] MPV 12.7(H) 7.0 - 11.0 FL LAB HEMETOLOGY METHOD 07/30/2024 9:55 AM [facility] NRBC 0.0 <1.0 % LAB HEMETOLOGY METHOD 07/30/2024 9:55 AM [facility] NRBC Absolute 0.00 <0.10 K/mcL LAB HEMETOLOGY METHOD 07/30/2024 9:55 AM [facility] Blood Venous blood specimen / Unknown Venipuncture / Unknown 07/30/2024 7:30 AM EST 07/30/2024 9:39 AM EST us Prince Le MD LAB BLOOD ORDERABLES Final Resul t [facility]) [facility] [address] [place] [address], documented in this encounter Visit Diagnoses Diagnosis Type 2 diabetes mellitus without complications (CMS/HCC V24, CMS/HCC V28) documented in this encounter Care Teams Master Dyer Relationship Specialty Start Date End Date Tram Álvarez MD 2 [facility] , [address] [facility] Physician Associ D/B/A: [facility] JAS Duque PCP - General Internal Medicine 03/30/18 documented as of this encounter
--- OUTSIDE RECORDS SUMMARY | 2024-10-20 15:48 | XMS_ITS | Clinical Summary ---
Author Organization [facility] Facility Address [address] [place] [address] Care Team Providers Care Fruit I Farmworker Name Role Phone Tram Royal MD Primary Care Provider [phone] Allergies Active Allergy Reactions Criticality Noted Date [...] knee 01/05/2013 09/27/2020 Hypertriglyceridemia 01/05/2013 021 Immunizations Immunization Administration Dates Next Due Influenza TIV (IM) [...] Colorectal Cancer Screening: Sigmoidoscopy 10/04/2004 Pneumococcal Vaccine: 50+ Years (2 of 2 - PCV) 07/09/2011 07/09/2010 Diabetes: Hemoglobin A1C 08/04/2020 04/28/2020 Diabetes: Ophthalmology Exam 08/04/2020 Diabetes: Pedal Pulse Checked 08/04/2020 Diabetes: Sensory Foot Exam 08/04/2020 Diabetes: Visual Foot Exam 08/04/2020 Influenza Vaccine (Season Ended) 2025 03/06/2012, 03/22/2011, 07/09/2010 Pneumococcal Vaccine: Peds ( 0 to 5 Years) and At-Risk Patients (6 to 49 Years) Discontinued 07/09/2010 Hepatitis B Vaccine Aged Out No [...] % PVNMA 04/28/2020 us [facility] [id number] LICITED RESULTS Final Result PVNMA from Last 3 Months or Most Recently Relevant to Health Maintenance Insurance [id number] [place] [id number] Medicaid [place] [id number] [place] [id number] Medicaid MD [place] Care Teams Fruit I Farmworker Relationship Specialty Start Date End Date Tram Royal MD [address] [facility] [address] [place] MD PCP - General 07/17/20
--- OUTSIDE RECORDS SUMMARY | 2024-10-20 15:48 | XMS_ITS | Encounter Summary ---
Author Organization [facility] Address [address] [place] [address] Care Team Providers Care Mottler Operator Name Role Phone Tram Álvarez MD Primary Care Provider [phone] Encounter Details Date Type Department Care Team (Late st Contact Info) Description 08/12/2024 Lab Requisition [facility] - Main Lab [address] [place] [address] Prince Le MD 38 [facility] [address] [place], [address] Type 2 diabetes mellitus without complications [...] mg/dL LAB CHEMISTRY METHOD 08/13/2024 11:42 AM [facility] Blood Venous blood specimen / Unknown Venipuncture / Unknown 08/13/2024 7:38 AM EST 08/13/2024 11:02 AM EST us Prince Le MD LAB BLOOD ORDERABLES Final Resul t [facility] [address] [place] [address], * (ABNORMAL) Comprehensive metabolic panel (08/13/2024 7:38 AM EST) Sodium 137 133 - 145 mmol/L LAB CHEMISTRY METHOD 08/13/2024 11:42 AM [facility] Potassium 5.1 3.5 - 5.5 mmol/L LAB CHEMISTRY METHOD 08/13/2024 11:42 AM [facility] Chloride 103 96 - 110 mmol/L LAB CHEMISTRY METHOD 08/13/2024 11:42 AM [facility] CO2 29 21 - 32 mmol/L LAB CHEMISTRY METHOD 08/13/2024 11:42 AM [facility] Anion Gap 5 3 - 11 LAB CHEMISTRY METHOD 08/13/2024 11:42 AM [facility] Glucose 90 70 - 100 mg/dL LAB CHEMISTRY METHOD 08/13/2024 11:42 AM [facility] BUN 31(H) 5 - 25 mg/dL LAB CHEMISTRY METHOD 08/13/2024 11:42 AM [facility] Creatinine 0.98 0.70 - 1.30 mg/dL LAB CHEMISTRY METHOD 08/13/2024 11:42 AM [facility] eGFR 84 >=60 mL/min/1. 73m2 LAB CHEMISTRY METHOD 08/13/2024 11:42 AM [facility] Comment:Calculation based on the??Chronic Kidney Disease Epidemiology Collaboration (CKD-EPI) equation refit??without adjustment for race. BUN/Creatinine Ratio 31.6 LAB CHEMISTRY METHOD 08/13/2024 11:42 AM [facility] Calcium 9.2 8.5 - 10.5 mg/dL LAB CHEMISTRY METHOD 08/13/2024 11:42 AM [facility] AST (SGOT) 36 10 - 42 unit/L LAB CHEMISTRY METHOD 08/13/2024 11:42 AM [facility] ALT (SGPT) 32 10 - 60 unit/L LAB CHEMISTRY METHOD 08/13/2024 11:42 AM [facility] Alkaline Phosphatase 47 42 - 121 unit/L LAB CHEMISTRY METHOD 08/13/2024 11:42 AM [facility] Total Protein 6.4 6.0 - 8.0 g/dL LAB CHEMISTRY METHOD 08/13/2024 11:42 AM [facility] Albumin 3.4 3.2 - 5.0 g/dL LAB CHEMISTRY METHOD 08/13/2024 11:42 AM [facility] Total Bilirubin 0.6 0.0 - 1.4 mg/dL LAB CHEMISTRY METHOD 08/13/2024 11:42 AM [facility] Blood Venous blood specimen / Unknown Venipuncture / Unknown 08/13/2024 7:38 AM EST 08/13/2024 11:02 AM EST us rPince Le MD LAB BLOOD ORDERABLES Final Resul t [facility] [address] [place] [address], * (ABNORMAL) Complete blood count (08/13/2024 7:30 AM EST) WBC 8.4 4.8 - 10.8 K/mcL LAB HEMETOLOGY METHOD 08/13/2024 11:11 AM [facility] RBC 4.20(L) 4.50 - 5.50 M/mcL LAB HEMETOLOGY METHOD 08/13/2024 11:11 AM [facility] Hemoglobin 11.6(L) 13.5 - 17.5 g/dL LAB HEMETOLOGY METHOD 08/13/2024 11:11 AM [facility] Hematocrit 36.1(L) 42.0 - 54.0 % LAB HEMETOLOGY METHOD 08/13/2024 11:11 AM [facility] MCV 86.2 79.0 - 98.0 FL LAB HEMETOLOGY METHOD 08/13/2024 11:11 AM [facility] MCH 27.7 27.0 - 32.0 pcg LAB HEMETOLOGY METHOD 08/13/2024 11:11 AM [facility] MCHC 32.1 32.0 - 37.0 g/dL LAB HEMETOLOGY METHOD 08/13/2024 11:11 AM [facility] RDW 21.2(H) 11.0 - 15.0 % LAB HEMETOLOGY METHOD 08/13/2024 11:11 AM [facility] Platelets 338 130 - 400 K/mcL LAB HEMETOLOGY METHOD 08/13/2024 11:11 AM [facility] MPV 12.8(H) 7.0 - 11.0 FL LAB HEMETOLOGY METHOD 08/13/2024 11:11 AM [facility] NRBC 0.0 <1.0 % LAB HEMETOLOGY METHOD 08/13/2024 11:11 AM [facility] NRBC Absolute 0.00 <0.10 K/mcL LAB HEMETOLOGY METHOD 08/13/2024 11:11 AM [facility] Blood Venous blood specimen / Unknown Venipuncture / Unknown 08/13/2024 7:30 AM EST 08/13/2024 10:59 AM EST us Prince Le MD LAB BLOOD ORDERABLES Final Resul t [facility] [address] [place] [address], documented in this encounter Visit Diagnoses Diagnosis Type 2 diabetes mellitus without complications (CMS/HCC V24, CMS/HCC V28) documented in this encounter Care Teams Mottler Operator Relationship Specialty Start Date End Date Tram Álvarez MD 2 [facility] , [address] [facility] Physician Associ D/B/A: [facility] JAS Duque PCP - General Internal Medicine 03/30/18 documented as of this encounter
--- OUTSIDE RECORDS SUMMARY | 2024-10-20 15:48 | XMS_ITS | Encounter Summary ---
Author Organization [facility] Address [address] [place] [address] Care Team Providers Care Calliope Player Name Role Phone Tram Álvarez MD Primary Care Provider [phone] Encounter Details Date Type Department Care Team (Late st Contact Info) Description 09/09/2024 Lab Requisition [facility] - Main Lab [address] [facility] [place] [address] Prince Le MD 38 [facility] [address] [place], [address] Type 2 diabetes mellitus without complications [...] V28) documented in this encounter Care Teams Calliope Player Relationship Specialty Start Date End Date Tram Álvarez MD [address] [place] [address] , [address] [facility] Physician Associ D/B/A: [facility] [place], [place] PCP - General Internal Medicine 03/30/18 documented as of this encounter
--- OUTSIDE RECORDS SUMMARY | 2024-10-20 15:48 | XMS_ITS | Clinical Summary ---
Author Organization [employer] Address [address] [facility] [address] [place] [address] Care Team Providers Care Clarifying Plant Operator Name Role Phone Unavailable Primary Care Provider Unavailabl e Social History Tobacco Use Types Packs/Day Years Used Date Smoking Tobacco: Never Assessed Sex and Gender Information Value Date Recorded Sex Assigned at Male 05/06/2022 10:29 AM EDT Legal Sex Male 10:29 AM EDT Gender Identity Not on file Sexual Orientation Not on file Plan of Treatment Upcoming Encounters Date Type Department Care Team ([facility] st Contact Info) Description 11/15/2024 10:45 AM EDT Office Visit [facility] [address] [place] [address] Shannan Moscoso DO [address] [place] [address] Health Maintenance Due Date Last Done Comments [...] patient's age to complete this topic Insurance [employer]
--- OUTSIDE RECORDS SUMMARY | 2024-10-20 15:48 | XMS_ITS | Encounter Summary ---
Author Organization [facility] Address [address] [place] [address] Care Team Providers Care Ladle Watcher Name Role Phone Tram Álvarez MD Primary Care Provider [phone] Encounter Details Date Type Department Care Team (Late st Contact Info) Description 10/14/2024 Lab Requisition [facility] - Main Lab [address] [facility] [place] [address] Prince Le MD [address] [facility] [address] [place], [address] Type 2 diabetes mellitus without complications [...] V28) documented in this encounter Care Teams Ladle Watcher Relationship Specialty Start Date End Date Tram Álvarez MD [address] [place] [address] , [address] [facility] Physician Associ D/B/A: [facility] [place], [place] PCP - General Internal Medicine 03/30/18 documented as of this encounter
--- OUTSIDE RECORDS SUMMARY | 2024-10-20 15:48 | XMS_ITS | Encounter Summary ---
Author Organization [facility] Address [address] [place] [address] Care Team Providers Care Low Vision Therapist Name Role Phone Tram Álvarez MD Primary Care Provider [phone] Encounter Details Date Type Department Care Team (Late st Contact Info) Description 05/14/2024 Lab Requisition [facility] - Main Lab [address] [place] [address] Prince Le MD [address] [facility] [address] [place], [address] Essential (primary) hypertension Social History Tobacco [...] LAB CHEMISTRY METHOD 05/17/2024 10:43 AM EST [facility] Potassium 4.5 3.5 - 5.5 mmol/L LAB CHEMISTRY METHOD 05/17/2024 10:43 AM EST [facility] Chloride 110 96 - 110 mmol/L LAB CHEMISTRY METHOD 05/17/2024 10:43 AM [facility] CO2 27 21 - 32 mmol/L LAB CHEMISTRY METHOD 05/17/2024 10:43 AM [facility] Anion Gap 6 3 - 11 LAB CHEMISTRY METHOD 05/17/2024 10:43 AM [facility] Glucose 99 70 - 100 mg/dL LAB CHEMISTRY METHOD 05/17/2024 10:43 AM [facility] BUN 37(H) 5 - 25 mg/dL LAB CHEMISTRY METHOD 05/17/2024 10:43 AM [facility] Creatinine 1.29 0.70 - 1.30 mg/dL LAB CHEMISTRY METHOD 05/17/2024 10:43 AM [facility] eGFR 60 >=60 mL/min/1. 73m2 LAB CHEMISTRY METHOD 05/17/2024 10:43 AM [facility] Comment:Calculation based on the??Chronic Kidney Disease Epidemiology Collaboration (CKD-EPI) equation refit??without adjustment for race. BUN/Creatinine Ratio 28.7 LAB CHEMISTRY METHOD 05/17/2024 10:43 AM [facility] Calcium 9.3 8.5 - 10.5 mg/dL LAB CHEMISTRY METHOD 05/17/2024 10:43 AM [facility] Blood Venous blood specimen / Unknown Venipuncture / Unknown 05/17/2024 6:41 AM EST 05/17/2024 9:49 AM EST us Prince Le MD LAB BLOOD ORDERABLES Final Resul t [facility] [address] [place] [address], * (ABNORMAL) Complete blood count (05/17/2024 6:41 AM EST) WBC 9.0 4.8 - 10.8 K/mcL LAB HEMETOLOGY METHOD 05/17/2024 10:23 AM [facility] RBC 5.50 4.50 - 5.50 M/mcL LAB HEMETOLOGY METHOD 05/17/2024 10:23 AM [facility] Hemoglobin 15.0 13.5 - 17.5 g/dL LAB HEMETOLOGY METHOD 05/17/2024 10:23 AM [facility] Hematocrit 48.3 42.0 - 54.0 % LAB HEMETOLOGY METHOD 05/17/2024 10:23 AM [facility] MCV 88.0 79.0 - 98.0 FL LAB HEMETOLOGY METHOD 05/17/2024 10:23 AM [facility] MCH 27.3 27.0 - 32.0 pcg LAB HEMETOLOGY METHOD 05/17/2024 10:23 AM [facility] MCHC 31.1(L) 32.0 - 37.0 g/dL LAB HEMETOLOGY METHOD 05/17/2024 10:23 AM [facility] RDW 16.6(H) 11.0 - 15.0 % LAB HEMETOLOGY METHOD 05/17/2024 10:23 AM [facility] Platelets 240 130 - 400 K/mcL LAB HEMETOLOGY METHOD 05/17/2024 10:23 AM [facility] MPV 13.4(H) 7.0 - 11.0 FL LAB HEMETOLOGY METHOD 05/17/2024 10:23 AM [facility] NRBC 0.0 <1.0 % LAB HEMETOLOGY METHOD 05/17/2024 10:23 AM [facility] NRBC Absolute 0.00 <0.10 K/mcL LAB HEMETOLOGY METHOD 05/17/2024 10:23 AM [facility] Blood Venous blood specimen / Unknown Venipuncture / Unknown 05/17/2024 6:41 AM EST 05/17/2024 9:51 AM EST us Prince Le MD LAB BLOOD ORDERABLES Final Resul t [facility] [address] [place] [address], [place] [phone] documented in this encounter Visit Diagnoses Diagnosis Essential (primary) hypertension Unspecified essential hypertension documented in this encounter Care Teams Low Vision Therapist Relationship Specialty Start Date End Date Tram Álvarez MD [address] [facility] , [address] [facility] Physician Associ D/B/A: [facility] [place] Duque PCP - General Internal Medicine 03/30/18 documented as of this encounter
--- OUTSIDE RECORDS SUMMARY | 2024-10-20 15:48 | XMS_ITS | Clinical Summary ---
Author Organization [address] [facility] Address [address] [place] [address] Phone Care Team Providers Care Pit Hand Name Role Phone Tram Álvarez MD Primary Care Provider [phone] Encounters Date Type Department Care Team Description 10/18/2024 Lab Requisition [facility] [address] [facility] [place] [phone] Preeti Lujan MD Sepsis, unspecified organism ([facility] V24, [facility] V28) 10/14/2024 Lab Requisition [facility] [address] [facility] [place] [phone] Prince Le MD Type 2 diabetes mellitus without complications ([facility] V24, [facility] V28) 10/07/2024 Lab Requisition [facility] [address] [facility] [place] [phone] Prince Le MD Type 2 diabetes mellitus without complications ([facility] V24, [facility] V28) 10/07/2024 Lab Requisition [facility] [address] [facility] [place] [phone] Prince Le MD Type 2 diabetes mellitus without complications ([facility] V24, [facility] V28) 09/30/2024 Lab Requisition [facility] [address] [facility] [place] [phone] Prince Le MD Type 2 diabetes mellitus without complications ([facility] V24, [facility] V28) 09/23/2024 Lab Requisition [facility] [address] [place] [address] Prince Le MD Type 2 diabetes mellitus without complications ([facility] V24, [facility] V28) 09/16/2024 Lab Requisition [facility] [address] [place] [address] Prince Le MD Type 2 diabetes mellitus without complications ([facility] V24, [facility] V28) 09/09/2024 Lab Requisition [facility] [address] [place] [phone] Prince Le MD Type 2 diabetes mellitus without complications ([facility] V24, [facility] V28) 09/02/2024 Lab Requisition [facility] [address] [place] [address] Prince Le MD Type 2 diabetes mellitus without complications ([facility] V24, [facility] V28) 08/26/2024 Lab Requisition [facility] [address] [place] [phone] Prince Le MD Type 2 diabetes mellitus without complications ([facility] V24, [facility] V28) 08/19/2024 Lab Requisition [facility] [address] [place] [phone] Prince Le MD Type 2 diabetes mellitus without complications ([facility] V24, [facility] V28) 08/12/2024 Lab Requisition [facility] [address] [place] [address] Prince Le MD Type 2 diabetes mellitus without complications ([facility] V24, [facility] V28) 08/05/2024 Lab Requisition [facility] [address] [place] [address] Prince Le MD Type 2 diabetes mellitus without complications ([facility] V24, [facility] V28) 07/29/2024 Lab Requisition [facility] - Main Lab [address] [facility] [place] [phone] Prince Le MD Type 2 diabetes mellitus without complications ([facility] V24, [facility] V28) 07/22/2024 Lab Requisition [facility] - Main Lab [address] [facility] [place] [phone] Prince Le MD Type 2 diabetes mellitus without complications ([facility] V24, [facility] V28) from Last 3 Months Social History Tobacco [...] Vaccines (1 of 2) 10/04/2005 RSV Immunization Adult Patients (1 - Risk 60-74 years 1-dose series) [...] 05/08/2024 Diabetes: Annual GFR (Glomerular Filtration Rate) 10/18/2025 10/18/2024, 10/07/2024, 10/01/2024, Additional history exists Hypertension/CHF/CAD Annual BMP Blood Test 10/18/2025 10/18/2024, 10/07/2024, 10/01/2024, Additional history exists Cholesterol Screening (Lipid Panel) [...] age to complete this topic Meningococcal B Vaccine Aged Out No l onger eligible based on patient's age to complete this topic RSV Immunization Patients Under 20 months Aged Out No longer eligible based on patient's age to complete this topic Varicella Vaccines Aged Out No longer eligible based on patient's age to complete this topic Procedures Procedure Name Priority Date/Time Associated Diagnosis Comments BASIC METABOLIC PANEL Routine 10/18/2024 9:03 AM EDT Sepsis, unspecified organism (CMS/HCC V24, CMS/HCC V28) COMPLETE BLOOD COUNT Routine 10/18/2024 9:03 AM EDT Sepsis, unspecified organism (CMS/HCC V24, CMS/HCC V28) CBC WITH AUTO DIFFERENTIAL Routine 10/07/2024 5:18 AM EDT Type 2 diabetes mellitus without complications BASIC METABOLIC PANEL Routine 10/07/2024 5:18 AM EDT Type 2 diabetes mellitus without complications CBC AND DIFFERENTIAL Routine 10/07/2024 5:18 AM EDT Type 2 diabetes mellitus without complications C-REACTIVE PROTEIN Routine 10/01/2024 8: 01 AM EDT Type 2 diabetes mellitus without complications COMPREHENSIVE METABOLIC PANEL Routine 10/01/2024 8:01 AM EDT Type 2 diabetes mellitus without complications COMPLETE BLOOD COUNT Routine 10/01/2024 8:01 AM EDT Type 2 diabetes mellitus without complications C-REACTIVE PROTEIN Routine 09/24/2024 5: 45 AM EDT Type 2 diabetes mellitus without complications COMPREHENSIVE METABOLIC PANEL Routine 09/24/2024 5:45 AM EDT Type 2 diabetes mellitus without complications COMPLETE BLOOD COUNT Routine 09/24/2024 5:45 AM EDT Type 2 diabetes mellitus without complications C-REACTIVE PROTEIN Routine 09/17/2024 8: 06 AM EDT Type 2 diabetes mellitus without complications (CMS/HCC) COMPREHENSIVE METABOLIC PANEL Routine 09/17/2024 8:06 AM EDT Type 2 diabetes mellitus without complications (CMS/HCC) COMPLETE BLOOD COUNT Routine 09/17/2024 8:06 AM EDT Type 2 diabetes mellitus without complications (CMS/HCC) [...] Type 2 diabetes mellitus without complications (CMS/HCC) from Last 3 Months Results * (ABNORMAL) Complete blood count (10/18/2024 9:03 AM EDT) Only the most recent of11 resultswithin the time period is included. WBC 5.9 4.8 - 10.8 K/mcL LAB HEMETOLOGY [facility] RBC 3.40(L) 4.50 - 5.50 M/mcL LAB HEMETOLOGY METHOD 10/18[facility]2024 [facility] Hemoglobin 10.1(L) 13.5 - 17.5 g/dL LAB HEMETOLOGY METHOD 10/18/2024 1:35 PM [facility] Hematocrit 32.3(L) 42.0 - 54.0 % LAB HEMETOLOGY METHOD 10/18/2024 1:[facility] MCV 96.4 79.0 - 98.0 FL LAB HEMETOLOGY METHOD 10/18/2024 1:35 PM [facility] MCH 30.1 27.0 - 32.0 pcg LAB HEMETOLOGY METHOD 10/18/2024 1:[facility] MCHC 31.3(L) 32.0 - 37.0 g/dL LAB HEMETOLOGY METHOD 10/18/2024 1:35 PM EDT [facility] RDW 18.2(H) 11.0 - 15.0 % LAB HEMETOLOGY METHOD 10/18/2024 1:35 PM EDT [facility] Platelets 275 130 - 400 K/mcL LAB HEMETOLOGY METHOD 10/18/2024 1:35 PM EDT [facility] MPV 13.2(H) 7.0 - 11.0 FL LAB HEMETOLOGY METHOD 10/18/2024 1:35 PM EDT [facility] NRBC 0.0 <1.0 % LAB HEMETOLOGY METHOD 10/18/2024 1:35 PM EDT [facility] NRBC Absolute 0.00 <0.10 K/mcL LAB HEMETOLOGY METHOD 10/18/2024 1:35 PM [facility] Blood Venous blood specimen / Unknown Venipuncture / Unknown 10/18/2024 9:03 AM EDT 10/18/2024 11:02 AM EDT us Preeti Lujan MD LAB BLOOD ORDERABLES Fin al Result [facility] [address] [place] [address], * (ABNORMAL) Basic metabolic panel (10/18/2024 9:03 AM EDT) Only the most recent of2 resultswithin the time period is included. Sodium 142 133 - 145 mmol/L LAB CHEMISTRY METHOD 10/18/2024 1:15 PM [facility] Potassium 4.0 3.5 - 5.5 mmol/L LAB CHEMISTRY METHOD 10/18/2024 1:15 PM [facility] Chloride 113(H) 96 - 110 mmol/L LAB CHEMISTRY METHOD 10/18/2024 1:15 PM [facility] CO2 22 21 - 32 mmol/L LAB CHEMISTRY METHOD 10/18/2024 1:15 PM EDT [facility] Anion Gap 7 3 - 11 LAB CHEMISTRY METHOD 10/18/2024 1:15 PM EDT [facility] Glucose 114(H) 70 - 100 mg/dL LAB CHEMISTRY METHOD 10/18/2024 1:15 PM EDT [facility] BUN 12 5 - 25 mg/dL LAB CHEMISTRY METHOD 10/18/2024 1:15 PM EDT [facility] Creatinine 0.58(L) 0.70 - 1.30 mg/dL LAB CHEMISTRY METHOD 10/18/2024 1:15 PM EDT [facility] eGFR 106 >=60 mL/min/1. 73m2 LAB CHEMISTRY METHOD 10/18/2024 1:15 PM EDT [facility] Comment:Calculation based on the??Chronic Kidney Disease Epidemiology Collaboration (CKD-EPI) equation refit??without adjustment for race. BUN/Creatinine Ratio 20.7 LAB CHEMISTRY METHOD 10/18/2024 1:15 PM EDT [facility] Calcium 8.7 8.5 - 10.5 mg/dL LAB CHEMISTRY METHOD 10/18/2024 1:15 PM [facility] Blood Venous blood specimen / Unknown Venipuncture / Unknown 10/18/2024 9:03 AM EDT 10/18/2024 11:02 AM EDT us Preeti Lujan MD LAB BLOOD ORDERABLES Fin al Result [facility] [address] [place] [address], * (ABNORMAL) CBC auto differential (10/07/2024 5:18 AM EDT) WBC 17.5(H) 4.8 - 10.8 K/mcL LAB HEMETOLOGY METHOD 10/07/2024 9:32 AM [facility] RBC 3.80(L) 4.50 - 5.50 M/mcL LAB HEMETOLOGY METHOD 10/07/2024 9:32 AM [facility] Hemoglobin 11.2(L) 13.5 - 17.5 g/dL LAB HEMETOLOGY METHOD 10/07/2024 9:32 AM [facility] Hematocrit 35.1(L) 42.0 - 54.0 % LAB HEMETOLOGY METHOD 10/07/2024 9:32 AM [facility] MCV 92.4 79.0 - 98.0 FL LAB HEMETOLOGY METHOD 10/07/2024 9:32 AM [facility] MCH 29.5 27.0 - 32.0 pcg LAB HEMETOLOGY METHOD 10/07/2024 9:32 AM [facility] MCHC 31.9(L) 32.0 - 37.0 g/dL LAB HEMETOLOGY METHOD 10/07/2024 9:32 AM [facility] RDW 16.6(H) 11.0 - 15.0 % LAB HEMETOLOGY METHOD 10/07/2024 9:32 AM [facility] Platelets 230 130 - 400 K/mcL LAB HEMETOLOGY METHOD 10/07/2024 9:32 AM [facility] MPV 13.0(H) 7.0 - 11.0 FL LAB HEMETOLOGY METHOD 10/07/2024 9:32 AM [facility] NRBC 0.0 <1.0 % LAB HEMETOLOGY METHOD 10/07/2024 9:32 AM [facility] NRBC Absolute 0.00 <0.10 K/mcL LAB HEMETOLOGY METHOD 10/07/2024 9:32 AM [facility] Neutrophils Relative 82.3 % LAB HEMETOLOGY METHOD 10/07/2024 9:32 AM [facility] Lymphocytes Relative 10.0 % LAB HEMETOLOGY METHOD 10/07/2024 9:32 AM [facility] Monocytes Relative 4.6 % LAB HEMETOLOGY METHOD 10/07/2024 9:32 AM [facility] Eosinophils Relative 2.2 % LAB HEMETOLOGY METHOD 10/07/2024 9:32 AM [facility] Basophils Relative 0.3 % LAB HEMETOLOGY METHOD 10/07/2024 9:32 AM [facility] Immature Granulocytes Relative 0.6 % LAB HEMETOLOGY METHOD 10/07/2024 9:32 AM [facility] Neutrophils Absolute 14.41(H) 1.50 - 7.00 K/mcL LAB HEMETOLOGY METHOD 10/07/2024 9:32 AM [facility] Lymphocytes Absolute 1.74 1.00 - 5.00 K/mcL LAB HEMETOLOGY METHOD 10/07/2024 9:32 AM [facility] Monocytes Absolute 0.80 0.20 - 1.00 K/mcL LAB HEMETOLOGY METHOD 10/07/2024 9:32 AM [facility] Eosinophils Absolute 0.38 0.00 - 0.50 K/mcL LAB HEMETOLOGY METHOD 10/07/2024 9:32 AM [facility] Basophils Absolute 0.05 0.00 - 0.20 K/mcL LAB HEMETOLOGY METHOD 10/07/2024 9:32 AM [facility] Immature Granulocytes Absolute 0.10(H) 0.00 - 0.03 K/mcL LAB HEMETOLOGY METHOD 10/07/2024 9:32 AM [facility] Blood Venous blood specimen / Unknown Venipuncture / Unknown 10/07/2024 5:18 AM EDT 10/07/2024 8:56 AM EDT us Prince Le MD LAB BLOOD ORDERABLES Final Resul t Performing Organization Address [facility] Co de Phone Number [facility] [address] [place] [address], [place] [phone] * (ABNORMAL) C-reactive protein (10/01/2024 8:01 AM EDT) Only the most recent of10 resultswithin the time period is included. [facility] C-Reactive Protein 0.73(H) <=0.50 mg/dL LAB CHEMISTRY METHOD 10/01/2024 11:57 AM EDT [facility] Blood Venous blood specimen / Unknown Venipuncture / Unknown 10/01/2024 8:01 AM EDT 10/01/2024 10:24 AM EDT us Prince Le MD LAB BLOOD ORDERABLES Final Resul t Performing Organization Address [facility] de Phone Number [facility] [address] [place] [address], [place] [phone] * (ABNORMAL) Comprehensive metabolic panel (10/01/2024 8:01 AM EDT) Only the most recent of10 resultswithin the time period is included. [facility] Sodium 134 133 - 145 mmol/L LAB CHEMISTRY METHOD 10/01/2024 12:02 PM EDT [facility] Potassium 4.7 3.5 - 5.5 mmol/L LAB CHEMISTRY METHOD 10/01/2024 12:02 PM EDT [facility] Chloride 101 96 - 110 mmol/L LAB CHEMISTRY METHOD 10/01/2024 12:02 PM EDT [facility] CO2 27 21 - 32 mmol/L LAB CHEMISTRY METHOD 10/01/2024 12:02 PM EDT [facility] Anion Gap 6 3 - 11 LAB CHEMISTRY METHOD 10/01/2024 12:02 PM [facility] Glucose 79 70 - 100 mg/dL LAB CHEMISTRY METHOD 10/01/2024 12:02 PM [facility] BUN 40(H) 5 - 25 mg/dL LAB CHEMISTRY METHOD 10/01/2024 12:02 PM [facility] Creatinine 1.55(H) 0.70 - 1.30 mg/dL LAB CHEMISTRY METHOD 10/01/2024 12:02 PM [facility] eGFR 48(L) >=60 mL/min/1. 73m2 LAB CHEMISTRY METHOD 10/01/2024 12:02 PM [facility] Comment:Calculation based on the??Chronic Kidney Disease Epidemiology Collaboration (CKD-EPI) equation refit??without adjustment for race. BUN/Creatinine Ratio 25.8 LAB CHEMISTRY METHOD 10/01/2024 12:02 PM [facility] Calcium 8.8 8.5 - 10.5 mg/dL LAB CHEMISTRY METHOD 10/01/2024 12:02 [facility] AST (SGOT) 63(H) 10 - 42 unit/L LAB CHEMISTRY METHOD 10/01/2024 12:02 [facility] ALT (SGPT) 30 10 - 60 unit/L LAB CHEMISTRY METHOD 10/01/2024 12:02 PM [facility] Alkaline Phosphatase 40(L) 42 - 121 unit/L LAB CHEMISTRY METHOD 10/01/2024 12:02 PM [facility] Total Protein 6.0 6.0 - 8.0 g/dL LAB CHEMISTRY METHOD 10/01/2024 12:02 PM [facility] Albumin 2.9(L) 3.2 - 5.0 g/dL LAB CHEMISTRY METHOD 10/01/2024 12:02 PM [facility] Total Bilirubin 0.4 0.0 - 1.4 mg/dL LAB CHEMISTRY METHOD 10/01/2024 12:02 PM EDT [facility] Blood Venous blood specimen / Unknown Venipuncture / Unknown 10/01/2024 8:01 AM EDT 10/01/2024 10:24 AM EDT us Prince Le MD LAB BLOOD ORDERABLES Final Resul t [facility] [address] [place] [address], [place] [phone] * (ABNORMAL) Lipid panel with reflex to direct LDL (08/27/2024 6:34 AM EST) Cholesterol 96 0 - 200 mg/dL LAB CHEMISTRY METHOD 08/27/2024 9:27 AM EST [facility] Triglycerides 249(H) 0 - 150 mg/dL LAB CHEMISTRY METHOD 08/27/2024 9:27 AM [facility] HDL 30(L) >=40 mg/dL LAB CHEMISTRY METHOD 08/27/2024 9:27 AM EST [facility] LDL Calculated 16 0 - 100 mg/dL LAB CHEMISTRY METHOD 08/27/2024 9:27 AM EST [facility] VLDL Cholesterol Maikel 49.8 mg/dL LAB CHEMISTRY METHOD 08/27/2024 9:27 AM EST [facility] Non HDL Chol. (LDL+VLDL) 66 <145 mg/dL LAB CHEMISTRY METHOD 08/27/2024 9:27 AM [facility] Chol/HDL Ratio 3.2 0.0 - 4.4 LAB CHEMISTRY METHOD 08/27/2024 9:27 AM [facility] Blood Venous blood specimen / Unknown Venipuncture / Unknown 08/27/2024 6:34 AM EST 08/27/2024 8:52 AM EST us Prince Le MD LAB BLOOD ORDERABLES Final Resul t [facility] [address] [place] [address], [place] [phone] from Last 3 Months Insurance [employer] Member Subscriber Plan / Payer (Ef fective 2023-Present) Name:Carlos Cabrera Relation to Subscriber:Self Name:Carlos Cabrera Payer ID:[id number] Group ID:[id number] Type:Not on file Address: [place] [address] [place] [address] Care Teams Pit Hand Relationship Specialty Start Date End Date Tram Álvarez MD [address] [facility] , [address] [facility] Physician Associ D/B/A: [facility] [place] PCP - General Internal Medicine 03/30/18
--- OUTSIDE RECORDS SUMMARY | 2024-10-20 15:48 | XMS_ITS | Encounter Summary ---
Author Organization [facility] Address [address] [place] [address] Care Team Providers Care Liability Claims Adjuster Name Role Phone Tram Álvarez MD Primary Care Provider [phone] Encounter Details Date Type Department Care Team (Late st Contact Info) Description 10/07/2024 Lab Requisition [facility] - Main Lab [address] [place] [address] Prince Le MD 38 [facility] [address] [place], [address] Type 2 diabetes mellitus without complications [...] Procedure Name Priority Date/Time Associated Diagnosis Comments CBC WITH AUTO DIFFERENTIAL Routine 10/07/2024 5:18 AM EDT Type 2 diabetes mellitus without complications CBC AND DIFFERENTIAL Routine 10/07/2024 5:18 AM EDT Type 2 diabetes mellitus without complications BASIC METABOLIC PANEL Routine 10/07/2024 5:18 AM EDT Type 2 diabetes mellitus without complications documented in this encounter Results * (ABNORMAL) CBC auto differential (10/07/2024 5:18 AM EDT) WBC 17.5(H) 4.8 - 10.8 K/[facility] LAB HEMETOLOGY METHOD 10/07/2024 9:32 AM [facility] LAB RBC 3.80(L) 4.50 - 5.50 M/mcL LAB HEMETOLOGY METHOD 10/07/2024 9:32 AM [facility] LAB Hemoglobin 11.2(L) 13.5 - 17.5 g/dL LAB HEMETOLOGY METHOD 10/07/2024 9:32 AM [facility] LAB Hematocrit 35.1(L) 42.0 - 54.0 % LAB HEMETOLOGY METHOD 10/07/2024 9:32 AM [facility] LAB MCV 92.4 79.0 - 98.0 FL LAB HEMETOLOGY METHOD 10/07/2024 9:32 AM [facility] LAB MCH 29.5 27.0 - 32.0 pcg LAB HEMETOLOGY METHOD 10/07/2024 9:32 AM [facility] LAB MCHC 31.9(L) 32.0 - 37.0 g/dL LAB HEMETOLOGY METHOD 10/07/2024 9:32 AM [facility] LAB RDW 16.6(H) 11.0 - 15.0 % LAB HEMETOLOGY METHOD 10/07/2024 9:32 AM [facility] LAB Platelets 230 130 - 400 K/mcL LAB HEMETOLOGY METHOD 10/07/2024 9:32 AM [facility] LAB MPV 13.0(H) 7.0 - 11.0 FL LAB HEMETOLOGY METHOD 10/07/2024 9:32 AM [facility] LAB NRBC 0.0 <1.0 % LAB HEMETOLOGY METHOD 10/07/2024 9:32 AM [facility] LAB NRBC Absolute 0.00 <0.10 K/mcL LAB HEMETOLOGY METHOD 10/07/2024 9:32 AM [facility] LAB Neutrophils Relative 82.3 % LAB HEMETOLOGY METHOD 10/07/2024 9:32 AM [facility] LAB Lymphocytes Relative 10.0 % LAB HEMETOLOGY METHOD 10/07/2024 9:32 AM [facility] LAB Monocytes Relative 4.6 % LAB HEMETOLOGY METHOD 10/07/2024 9:32 AM [facility] LAB Eosinophils Relative 2.2 % LAB HEMETOLOGY METHOD 10/07/2024 9:32 AM [facility] LAB Basophils Relative 0.3 % LAB HEMETOLOGY METHOD 10/07/2024 9:32 AM [facility] LAB Immature Granulocytes Relative 0.6 % LAB HEMETOLOGY METHOD 10/07/2024 9:32 AM [facility] LAB Neutrophils Absolute 14.41(H) 1.50 - 7.00 K/mcL LAB HEMETOLOGY METHOD 10/07/2024 9:32 AM [facility] LAB Lymphocytes Absolute 1.74 1.00 - 5.00 K/mcL LAB HEMETOLOGY METHOD 10/07/2024 9:32 AM [facility] LAB Monocytes Absolute 0.80 0.20 - 1.00 K/mcL LAB HEMETOLOGY METHOD 10/07/2024 9:32 AM [facility] LAB Eosinophils Absolute 0.38 0.00 - 0.50 K/mcL LAB HEMETOLOGY METHOD 10/07/2024 9:32 AM [facility] LAB Basophils Absolute 0.05 0.00 - 0.20 K/mcL LAB HEMETOLOGY METHOD 10/07/2024 9:32 AM [facility] LAB Immature Granulocytes Absolute 0.10(H) 0.00 - 0.03 K/mcL LAB HEMETOLOGY METHOD 10/07/2024 9:32 AM [facility] LAB Blood Venous blood specimen / Unknown Venipuncture / Unknown 10/07/2024 5:18 AM EDT 10/07/2024 8:56 AM EDT us Prince Le MD LAB BLOOD ORDERABLES Final Resul t [facility] [address] [place] [address], [place] [phone] * (ABNORMAL) Basic metabolic panel (10/07/2024 5:18 AM EDT) Sodium 132(L) 133 - 145 mmol/L LAB CHEMISTRY METHOD 10/07/2024 10:16 AM [facility] LAB Potassium 5.0 3.5 - 5.5 mmol/L LAB CHEMISTRY METHOD 10/07/2024 10:16 AM [facility] LAB Chloride 99 96 - 110 mmol/L LAB CHEMISTRY METHOD 10/07/2024 10:16 AM [facility] LAB CO2 22 21 - 32 mmol/L LAB CHEMISTRY METHOD 10/07/2024 10:16 AM [facility] LAB Anion Gap 11 3 - 11 LAB CHEMISTRY METHOD 10/07/2024 10:16 AM [facility] LAB Glucose 82 70 - 100 mg/dL LAB CHEMISTRY METHOD 10/07/2024 10:16 AM [facility] LAB BUN 54(H) 5 - 25 mg/dL LAB CHEMISTRY METHOD 10/07/2024 10:16 AM [facility] LAB Creatinine 2.44(H) 0.70 - 1.30 mg/dL LAB CHEMISTRY METHOD 10/07/2024 10:16 AM [facility] LAB eGFR 28(L) >=60 mL/min/1. 73m2 LAB CHEMISTRY METHOD 10/07/2024 10:16 AM [facility] LAB Comment:Calculation based on the??Chronic Kidney Disease Epidemiology Collaboration (CKD-EPI) equation refit??without adjustment for race. BUN/Creatinine Ratio 22.1 LAB CHEMISTRY METHOD 10/07/2024 10:16 AM EDT [facility] Calcium 8.9 8.5 - 10.5 mg/dL LAB CHEMISTRY METHOD 10/07/2024 10:16 AM EDT [facility] LAB Blood Venous blood specimen / Unknown Venipuncture / Unknown 10/07/2024 5:18 AM EDT 10/07/2024 8:56 AM EDT us Prince Le MD LAB BLOOD ORDERABLES Final Resul t [facility] [address] [place] [address], documented in this encounter Visit Diagnoses Diagnosis Type 2 diabetes mellitus without complications (CMS/HCC V24, CMS/HCC V28) documented in this encounter Care Teams Liability Claims Adjuster Relationship Specialty Start Date End Date Tram Álvarez MD 2 [facility] , [address] [facility]ician Associ D/B/A: [facility] [place], [place] PCP - General Internal Medicine 03/30/18 documented as of this encounter
--- OUTSIDE RECORDS SUMMARY | 2024-10-20 15:48 | XMS_ITS | Encounter Summary ---
Author Organization [facility] Address [address] [place] [address] Care Team Providers Care Transaction Advisory Services Manager Name Role Phone Tram Álvarez MD Primary Care Provider [phone] Encounter Details Date Type Department Care Team (Late st Contact Info) Description 08/26/2024 Lab Requisition [facility] - Main Lab [address] [facility] [place] [address] Prince Le MD 38 [facility] [address] [place], [address] Type 2 diabetes mellitus without complications [...] mg/dL LAB CHEMISTRY METHOD 08/27/2024 9:27 AM [facility] LAB Triglycerides 249(H) 0 - 150 mg/dL LAB CHEMISTRY METHOD 08/27/2024 9:27 AM [facility] LAB HDL 30(L) >=40 mg/dL LAB CHEMISTRY METHOD 08/27/2024 9:27 AM [facility] LAB LDL Calculated 16 0 - 100 mg/dL LAB CHEMISTRY METHOD 08/27/2024 9:27 AM [facility] LAB VLDL Cholesterol Maikel 49.8 mg/dL LAB CHEMISTRY METHOD 08/27/2024 9:27 AM [facility] LAB Non HDL Chol. (LDL+VLDL) 66 <145 mg/dL LAB CHEMISTRY METHOD 08/27/2024 9:27 AM [facility] LAB Chol/HDL Ratio 3.2 0.0 - 4.4 LAB CHEMISTRY METHOD 08/27/2024 9:27 AM [facility] LAB Blood Venous blood specimen / Unknown Venipuncture / Unknown 08/27/2024 6:34 AM EST 08/27/2024 8:52 AM EST us Prince Le MD LAB BLOOD ORDERABLES Final Resul t [facility] [address] [place] [address], * (ABNORMAL) C-reactive protein (08/27/2024 6:34 AM EST) C-Reactive Protein 1.47(H) <=0.50 mg/dL LAB CHEMISTRY METHOD 08/27/2024 9:27 AM [facility] LAB Blood Venous blood specimen / Unknown Venipuncture / Unknown 08/27/2024 6:34 AM EST 08/27/2024 8:52 AM EST us Prince Le MD LAB BLOOD ORDERABLES Final Resul t [facility] [address] [place] [address], [place] [phone] * (ABNORMAL) Comprehensive metabolic panel (08/27/2024 6:34 AM EST) Sodium 139 133 - 145 mmol/L LAB CHEMISTRY METHOD 08/27/2024 9:27 AM [facility] LAB Potassium 4.6 3.5 - 5.5 mmol/L LAB CHEMISTRY METHOD 08/27/2024 9:27 AM [facility] LAB Chloride 105 96 - 110 mmol/L LAB CHEMISTRY METHOD 08/27/2024 9:27 AM [facility] LAB CO2 31 21 - 32 mmol/L LAB CHEMISTRY METHOD 08/27/2024 9:27 AM [facility] LAB Anion Gap 3 3 - 11 LAB CHEMISTRY METHOD 08/27/2024 9:27 AM [facility] LAB Glucose 112(H) 70 - 100 mg/dL LAB CHEMISTRY METHOD 08/27/2024 9:27 AM [facility] BUN 19 5 - 25 mg/dL LAB CHEMISTRY METHOD 08/27/2024 9:27 AM [facility] LAB Creatinine 0.71 0.70 - 1.30 mg/dL LAB CHEMISTRY METHOD 08/27/2024 9:27 AM [facility] LAB eGFR 100 >=60 mL/min/1. 73m2 LAB CHEMISTRY METHOD 08/27/2024 9:27 AM [facility] LAB Comment:Calculation based on the??Chronic Kidney Disease Epidemiology Collaboration (CKD-EPI) equation refit??without adjustment for race. BUN/Creatinine Ratio 26.8 LAB CHEMISTRY METHOD 08/27/2024 9:27 AM [facility] Calcium 9.5 8.5 - 10.5 mg/dL LAB CHEMISTRY METHOD 08/27/2024 9:27 AM [facility] LAB AST (SGOT) 19 10 - 42 unit/L LAB CHEMISTRY METHOD 08/27/2024 9:27 AM [facility] LAB ALT (SGPT) 29 10 - 60 unit/L LAB CHEMISTRY METHOD 08/27/2024 9:27 AM [facility] Alkaline Phosphatase 53 42 - 121 unit/L LAB CHEMISTRY METHOD 08/27/2024 9:27 AM [facility] Total Protein 6.5 6.0 - 8.0 g/dL LAB CHEMISTRY METHOD 08/27/2024 9:27 AM [facility] Albumin 3.2 3.2 - 5.0 g/dL LAB CHEMISTRY METHOD 08/27/2024 9:27 AM [facility] Total Bilirubin 0.6 0.0 - 1.4 mg/dL LAB CHEMISTRY METHOD 08/27/2024 9:27 AM [facility] Blood Venous blood specimen / Unknown Venipuncture / Unknown 08/27/2024 6:34 AM EST 08/27/2024 8:52 AM EST us Prince Le MD LAB BLOOD ORDERABLES Final Resul t [facility] [address] [place] [address], * (ABNORMAL) Complete blood count (08/27/2024 6:34 AM EST) WBC 12.7(H) 4.8 - 10.8 K/mcL LAB HEMETOLOGY METHOD 08/27/2024 9:04 AM [facility] RBC 3.80(L) 4.50 - 5.50 M/mcL LAB HEMETOLOGY METHOD 08/27/2024 9:04 AM [facility] Hemoglobin 10.9(L) 13.5 - 17.5 g/dL LAB HEMETOLOGY METHOD 08/27/2024 9:04 AM [facility] LAB Hematocrit 34.6(L) 42.0 - 54.0 % LAB HEMETOLOGY METHOD 08/27/2024 9:04 AM [facility] LAB MCV 91.5 79.0 - 98.0 FL LAB HEMETOLOGY METHOD 08/27/2024 9:04 AM [facility] LAB MCH 28.8 27.0 - 32.0 pcg LAB HEMETOLOGY METHOD 08/27/2024 9:04 AM [facility] LAB MCHC 31.5(L) 32.0 - 37.0 g/dL LAB HEMETOLOGY METHOD 08/27/2024 9:04 AM [facility] LAB RDW 20.3(H) 11.0 - 15.0 % LAB HEMETOLOGY METHOD 08/27/2024 9:04 AM [facility] LAB Platelets 422(H) 130 - 400 K/mcL LAB HEMETOLOGY METHOD 08/27/2024 9:04 AM [facility] LAB MPV 12.5(H) 7.0 - 11.0 FL LAB HEMETOLOGY METHOD 08/27/2024 9:04 AM [facility] LAB NRBC 0.0 <1.0 % LAB HEMETOLOGY METHOD 08/27/2024 9:04 AM [facility] LAB NRBC Absolute 0.00 <0.10 K/mcL LAB HEMETOLOGY METHOD 08/27/2024 9:04 AM [facility] Blood Venous blood specimen / Unknown Venipuncture / Unknown 08/27/2024 6:34 AM EST 08/27/2024 8:52 AM EST us Prince Le MD LAB BLOOD ORDERABLES Final Resul t [facility] [address] [place] [address], documented in this encounter Visit Diagnoses Diagnosis Type 2 diabetes mellitus without complications (CMS/HCC V24, CMS/HCC V28) documented in this encounter Care Teams Transaction Advisory Services Manager Relationship Specialty Start Date End Date Tram Álvarez MD 2 [facility] , [address] [facility] Physician [facility] D/B/A: [facility] [place], [place] PCP - General Internal Medicine 03/30/18 documented as of this encounter
--- OUTSIDE RECORDS SUMMARY | 2024-10-20 15:48 | XMS_ITS | Encounter Summary ---
Author Organization [facility] Address [address] [place] [address] Care Team Providers Care Institutional Aide Name Role Phone Tram Álvarez MD Primary Care Provider [phone] Encounter Details Date Type Department Care Team (Late st Contact Info) Description 09/02/2024 Lab Requisition [facility] - Main Lab [address] [place] [address] Prince Le MD 38 [facility] [address] [place], [address] Type 2 diabetes mellitus without complications [...] mg/dL LAB CHEMISTRY METHOD 09/03/2024 10:05 AM [facility] LAB Blood Venous blood specimen / Unknown Venipuncture / Unknown 09/03/2024 6:35 AM EST 09/03/2024 7:52 AM EST us Prince Le MD LAB BLOOD ORDERABLES Final Resul t [facility] [address] [place] [address], * (ABNORMAL) Comprehensive metabolic panel (09/03/2024 6:35 AM EST) Sodium 138 133 - 145 mmol/L LAB CHEMISTRY METHOD 09/03/2024 9:59 AM [facility] LAB Potassium 4.2 3.5 - 5.5 mmol/L LAB CHEMISTRY METHOD 09/03/2024 9:59 AM [facility] LAB Chloride 105 96 - 110 mmol/L LAB CHEMISTRY METHOD 09/03/2024 9:59 AM [facility] LAB CO2 28 21 - 32 mmol/L LAB CHEMISTRY METHOD 09/03/2024 9:59 AM [facility] LAB Anion Gap 5 3 - 11 LAB CHEMISTRY METHOD 09/03/2024 9:59 AM [facility] LAB Glucose 120(H) 70 - 100 mg/dL LAB CHEMISTRY METHOD 09/03/2024 9:59 AM [facility] LAB BUN 23 5 - 25 mg/dL LAB CHEMISTRY METHOD 09/03/2024 9:59 AM [facility] LAB Creatinine 0.88 0.70 - 1.30 mg/dL LAB CHEMISTRY METHOD 09/03/2024 9:59 AM [facility] LAB eGFR 94 >=60 mL/min/1. 73m2 LAB CHEMISTRY METHOD 09/03/2024 9:59 AM [facility] LAB Comment:Calculation based on the??Chronic Kidney Disease Epidemiology Collaboration (CKD-EPI) equation refit??without adjustment for race. BUN/Creatinine Ratio 26.1 LAB CHEMISTRY METHOD 09/03/2024 9:59 AM [facility] LAB Calcium 9.1 8.5 - 10.5 mg/dL LAB CHEMISTRY METHOD 09/03/2024 9:59 AM [facility] LAB AST (SGOT) 23 10 - 42 unit/L LAB CHEMISTRY METHOD 09/03/2024 9:59 AM [facility] ALT (SGPT) 29 10 - 60 unit/L LAB CHEMISTRY METHOD 09/03/2024 9:59 AM [facility] LAB Alkaline Phosphatase 59 42 - 121 unit/L LAB CHEMISTRY METHOD 09/03/2024 9:59 AM [facility] LAB Total Protein 5.9(L) 6.0 - 8.0 g/dL LAB CHEMISTRY METHOD 09/03/2024 9:59 AM [facility] Albumin 3.1(L) 3.2 - 5.0 g/dL LAB CHEMISTRY METHOD 09/03/2024 9:59 AM [facility] Total Bilirubin 0.4 0.0 - 1.4 mg/dL LAB CHEMISTRY METHOD 09/03/2024 9:59 AM [facility] LAB Blood Venous blood specimen / Unknown Venipuncture / Unknown 09/03/2024 6:35 AM EST 09/03/2024 7:52 AM EST us Prince Le MD LAB BLOOD ORDERABLES Final Resul t [facility] [address] [place] [address], * (ABNORMAL) Complete blood count (09/03/2024 6:35 AM EST) WBC 9.2 4.8 - 10.8 K/mcL LAB HEMETOLOGY METHOD 09/03/2024 8:43 AM [facility] RBC 3.70(L) 4.50 - 5.50 M/mcL LAB HEMETOLOGY METHOD 09/03/2024 8:43 AM [facility] Hemoglobin 10.8(L) 13.5 - 17.5 g/dL LAB HEMETOLOGY METHOD 09/03/2024 8:43 AM [facility] LAB Hematocrit 34.4(L) 42.0 - 54.0 % LAB HEMETOLOGY METHOD 09/03/2024 8:43 AM [facility] LAB MCV 93.5 79.0 - 98.0 FL LAB HEMETOLOGY METHOD 09/03/2024 8:43 AM [facility] LAB MCH 29.3 27.0 - 32.0 pcg LAB HEMETOLOGY METHOD 09/03/2024 8:43 AM [facility] LAB MCHC 31.4(L) 32.0 - 37.0 g/dL LAB HEMETOLOGY METHOD 09/03/2024 8:43 AM [facility] LAB RDW 20.0(H) 11.0 - 15.0 % LAB HEMETOLOGY METHOD 09/03/2024 8:43 AM [facility] LAB Platelets 333 130 - 400 K/mcL LAB HEMETOLOGY METHOD 09/03/2024 8:43 AM [facility] LAB MPV 12.3(H) 7.0 - 11.0 FL LAB HEMETOLOGY METHOD 09/03/2024 8:43 AM [facility] LAB NRBC 0.0 <1.0 % LAB HEMETOLOGY METHOD 09/03/2024 8:43 AM [facility] LAB NRBC Absolute 0.00 <0.10 K/mcL LAB HEMETOLOGY METHOD 09/03/2024 8:43 AM [facility] LAB Blood Venous blood specimen / Unknown Venipuncture / Unknown 09/03/2024 6:35 AM EST 09/03/2024 7:52 AM EST us Prince Le MD LAB BLOOD ORDERABLES Final Resul t [facility] [address] [place] [address], [place] [phone] documented in this encounter Visit Diagnoses Diagnosis Type 2 diabetes mellitus without complications (CMS/HCC V24, CMS/HCC V28) documented in this encounter Care Teams Institutional Aide Relationship Specialty Start Date End Date Tram Álvarez MD 2 [facility] , [address] [facility] Physician Associ D/B/A: [facility] JAS Duque PCP - General Internal Medicine 03/30/18 documented as of this encounter
--- OUTSIDE RECORDS SUMMARY | 2024-10-20 15:48 | XMS_ITS | Encounter Summary ---
Author Organization [facility] Address [address] [place] [address] Care Team Providers Care Compliance Aide Name Role Phone Tram Álvarez MD Primary Care Provider [phone] Encounter Details Date Type Department Care Team (Late st Contact Info) Description 08/19/2024 Lab Requisition [facility] - Main Lab [address] [place] [address] Prince Le MD 38 [facility] [address] [place], [address] Type 2 diabetes mellitus without [...] mg/dL LAB CHEMISTRY METHOD 08/20/2024 11:12 AM [facility] LAB Blood Venous blood specimen / Unknown Venipuncture / Unknown 08/20/2024 7:39 AM EST 08/20/2024 10:36 AM EST us Prince Le MD LAB BLOOD ORDERABLES Final Resul t [facility] [address] [place] [address], * (ABNORMAL) Comprehensive metabolic panel (08/20/2024 7:39 AM EST) Sodium 139 133 - 145 mmol/L LAB CHEMISTRY METHOD 08/20/2024 11:11 AM [facility] Potassium 4.5 3.5 - 5.5 mmol/L LAB CHEMISTRY METHOD 08/20/2024 11:11 AM [facility] Chloride 109 96 - 110 mmol/L LAB CHEMISTRY METHOD 08/20/2024 11:11 AM [facility] LAB CO2 26 21 - 32 mmol/L LAB CHEMISTRY METHOD 08/20/2024 11:11 AM [facility] Anion Gap 4 3 - 11 LAB CHEMISTRY METHOD 08/20/2024 11:11 AM [facility] LAB Glucose 120(H) 70 - 100 mg/dL LAB CHEMISTRY METHOD 08/20/2024 11:11 AM [facility] LAB BUN 22 5 - 25 mg/dL LAB CHEMISTRY METHOD 08/20/2024 11:11 AM [facility] LAB Creatinine 0.78 0.70 - 1.30 mg/dL LAB CHEMISTRY METHOD 08/20/2024 11:11 AM [facility] LAB eGFR 97 >=60 mL/min/1. 73m2 LAB CHEMISTRY METHOD 08/20/2024 11:11 AM [facility] LAB Comment:Calculation based on the??Chronic Kidney Disease Epidemiology Collaboration (CKD-EPI) equation refit??without adjustment for race. BUN/Creatinine Ratio 28.2 LAB CHEMISTRY METHOD 08/20/2024 11:11 AM [facility] LAB Calcium 9.3 8.5 - 10.5 mg/dL LAB CHEMISTRY METHOD 08/20/2024 11:11 AM [facility] LAB AST (SGOT) 35 10 - 42 unit/L LAB CHEMISTRY METHOD 08/20/2024 11:11 AM [facility] ALT (SGPT) 30 10 - 60 unit/L LAB CHEMISTRY METHOD 08/20/2024 11:11 AM [facility] LAB Alkaline Phosphatase 39(L) 42 - 121 unit/L LAB CHEMISTRY METHOD 08/20/2024 11:11 AM [facility] LAB Total Protein 6.6 6.0 - 8.0 g/dL LAB CHEMISTRY METHOD 08/20/2024 11:11 AM [facility] LAB Albumin 3.5 3.2 - 5.0 g/dL LAB CHEMISTRY METHOD 08/20/2024 11:11 AM [facility] Total Bilirubin 0.8 0.0 - 1.4 mg/dL LAB CHEMISTRY METHOD 08/20/2024 11:11 AM [facility] LAB Blood Venous blood specimen / Unknown Venipuncture / Unknown 08/20/2024 7:39 AM EST 08/20/2024 10:36 AM EST us Prince Le MD LAB BLOOD ORDERABLES Final Resul t [facility] [address] [place] [address], * (ABNORMAL) Complete blood count (08/20/2024 7:39 AM EST) WBC 13.2(H) 4.8 - 10.8 K/mcL LAB HEMETOLOGY METHOD 08/20/2024 10:52 AM [facility] RBC 3.90(L) 4.50 - 5.50 M/mcL LAB HEMETOLOGY METHOD 08/20/2024 10:52 AM [facility] LAB Hemoglobin 11.0(L) 13.5 - 17.5 g/dL LAB HEMETOLOGY METHOD 08/20/2024 10:52 AM [facility] LAB Hematocrit 33.1(L) 42.0 - 54.0 % LAB HEMETOLOGY METHOD 08/20/2024 10:52 AM [facility] LAB MCV 85.3 79.0 - 98.0 FL LAB HEMETOLOGY METHOD 08/20/2024 10:52 AM [facility] LAB MCH 28.4 27.0 - 32.0 pcg LAB HEMETOLOGY METHOD 08/20/2024 10:52 AM [facility] LAB MCHC 33.2 32.0 - 37.0 g/dL LAB HEMETOLOGY METHOD 08/20/2024 10:52 AM [facility] LAB RDW 20.9(H) 11.0 - 15.0 % LAB HEMETOLOGY METHOD 08/20/2024 10:52 AM [facility] LAB Platelets 329 130 - 400 K/mcL LAB HEMETOLOGY METHOD 08/20/2024 10:52 AM [facility] LAB MPV 13.2(H) 7.0 - 11.0 FL LAB HEMETOLOGY METHOD 08/20/2024 10:52 AM [facility] LAB NRBC 0.0 <1.0 % LAB HEMETOLOGY METHOD 08/20/2024 10:52 AM [facility] LAB NRBC Absolute 0.00 <0.10 K/mcL LAB HEMETOLOGY METHOD 08/20/2024 10:52 AM [facility] LAB Blood Venous blood specimen / Unknown Venipuncture / Unknown 08/20/2024 7:39 AM EST 08/20/2024 10:36 AM EST us Prince Le MD LAB BLOOD ORDERABLES Final Resul t [facility] [address] [place] [address], [place] [phone] documented in this encounter Visit Diagnoses Diagnosis Type 2 diabetes mellitus without complications (CMS/HCC V24, CMS/HCC V28) documented in this encounter Care Teams Compliance Aide Relationship Specialty Start Date End Date Tram Álvarez MD 2 [facility] , [address] [facility] Physician [facility] D/B/A: [facility] JAS Duque PCP - General Internal Medicine 03/30/18 documented as of this encounter
--- OUTSIDE RECORDS SUMMARY | 2024-10-20 15:48 | XMS_ITS | Encounter Summary ---
Author Organization [facility] Address [address] [place] [address] Care Team Providers Care Orthopedics Nurse Name Role Phone Tram Álvarez MD Primary Care Provider [phone] Encounter Details Date Type Department Care Team (Late st Contact Info) Description 06/18/2024 Lab Requisition [facility] - Main Lab [address] [place] [address] Prince Le MD 38 [facility] [address] [place], [address] Nausea with vomiting, unspecified; Chronic kidney [...] LAB CHEMISTRY METHOD 06/18/2024 11:17 AM EST [facility] LAB Potassium 4.6 3.5 - 5.5 mmol/L LAB CHEMISTRY METHOD 06/18/2024 11:17 AM [facility] LAB Chloride 102 96 - 110 mmol/L LAB CHEMISTRY METHOD 06/18/2024 11:17 AM [facility] LAB CO2 32 21 - 32 mmol/L LAB CHEMISTRY METHOD 06/18/2024 11:17 AM [facility] LAB Anion Gap 8 3 - 11 LAB CHEMISTRY METHOD 06/18/2024 11:17 AM [facility] LAB Glucose 72 70 - 100 mg/dL LAB CHEMISTRY METHOD 06/18/2024 11:17 AM [facility] LAB BUN 35(H) 5 - 25 mg/dL LAB CHEMISTRY METHOD 06/18/2024 11:17 AM [facility] LAB Creatinine 1.44(H) 0.70 - 1.30 mg/dL LAB CHEMISTRY METHOD 06/18/2024 11:17 AM [facility] LAB eGFR 53(L) >=60 mL/min/1. 73m2 LAB CHEMISTRY METHOD 06/18/2024 11:17 AM [facility] LAB Comment:Calculation based on the??Chronic Kidney Disease Epidemiology Collaboration (CKD-EPI) equation refit??without adjustment for race. BUN/Creatinine Ratio 24.3 LAB CHEMISTRY METHOD 06/18/2024 11:17 AM [facility] LAB Calcium 9.3 8.5 - 10.5 mg/dL LAB CHEMISTRY METHOD 06/18/2024 11:17 AM [facility] LAB Blood Venous blood specimen / Unknown Venipuncture / Unknown 06/18/2024 6:44 AM EST 06/18/2024 9:17 AM EST us Prince Le MD LAB BLOOD ORDERABLES Final Resul t [facility] LAB [address] [place] [address], * (ABNORMAL) Complete blood count (06/18/2024 6:44 AM EST) WBC 8.4 4.8 - 10.8 K/[facility] LAB HEMETOLOGY METHOD 06/18/2024 10:46 AM [facility] LAB RBC 5.10 4.50 - 5.50 M/[facility] LAB HEMETOLOGY METHOD 06/18/2024 10:46 AM [facility] LAB Hemoglobin 14.2 13.5 - 17.5 g/dL LAB HEMETOLOGY METHOD 06/18/2024 10:46 AM [facility] LAB Hematocrit 43.5 42.0 - 54.0 % LAB HEMETOLOGY METHOD 06/18/2024 10:46 AM [facility] LAB MCV 86.1 79.0 - 98.0 FL LAB HEMETOLOGY METHOD 06/18/2024 10:46 AM [facility] LAB MCH 28.1 27.0 - 32.0 pcg LAB HEMETOLOGY METHOD 06/18/2024 10:46 AM [facility] LAB MCHC 32.6 32.0 - 37.0 g/dL LAB HEMETOLOGY METHOD 06/18/2024 10:46 AM [facility] LAB RDW 17.2(H) 11.0 - 15.0 % LAB HEMETOLOGY METHOD 06/18/2024 10:46 AM [facility] LAB Platelets 248 130 - 400 K/[facility] LAB HEMETOLOGY METHOD 06/18/2024 10:46 AM [facility] LAB MPV 12.7(H) 7.0 - 11.0 FL LAB HEMETOLOGY METHOD 06/18/2024 10:46 AM [facility] LAB NRBC 0.0 <1.0 % LAB HEMETOLOGY METHOD 06/18/2024 10:46 AM [facility] LAB NRBC Absolute 0.00 <0.10 K/[facility] LAB HEMETOLOGY METHOD 06/18/2024 10:46 AM [facility] LAB Blood Venous blood specimen / Unknown Venipuncture / Unknown 06/18/2024 6:44 AM EST 06/18/2024 9:17 AM EST us Prince Le MD LAB BLOOD ORDERABLES Final Resul t [facility] ([facility] LAB [address] [place] [address], documented in this encounter Visit Diagnoses Diagnosis Nausea with vomiting, unspecified Chronic kidney disease, unspecified documented in this encounter Care Teams Orthopedics Nurse Relationship Specialty Start Date End Date Tram Álvarez MD 2 [facility] , [address] Physician Associ D/B/A: [facility] JAS Duque PCP - General Internal Medicine 03/30/18 documented as of this encounter
--- OUTSIDE RECORDS SUMMARY | 2024-10-20 15:48 | XMS_ITS | Data Portability ---
Author Organization [employer] [facility] Address [address] [place] [address] Care Team Providers Care Instructor Trainer Canine Service Name Role Phone HIM CCA OTHER LANG [...] Available N ot Available Free[employer] Tirso 2 Rock active Not Available Not Available Not Available [...] SNOMED-CT Code Diagnosis ICD10 Code Diagnosis Note [id number] Alicia Perez MD Main - instED [address] [place] [phone] 04/05/2024 17:15:55 04/05/2024 20:37:12 Accidental fall [id number] I provided real -time medical direction via phone for this encounter, and was available for additional phone based assistance as needed. I have reviewed and agree with the Assessment and Plan as documented by the Casino Floor Supervisor. Patient given the opportunit y to ask [...] Richardson Member ID Guarantor Name 04/05/2024 1 [facility] - DOS ON OR AFTER 2022 - DUAL ELIGIBLE - JAIL OPTIONS AND ONE CARE (MEDICARE REPLACEMENT/ADV ANTAGE - HMO) Carlos Cabrera [id number] Carlos Cabrera Notes Date Note Type Note Provider Name and Address Organization Details Recorded Time 04/05/2024 text/html CRC Nurse Triage Notes (Inder Sweeney): Chief Complaints: Falls Allergies: Unknown Comments: Mail Room verified the Pt.'s name//address and phone number. [...] .................. .................. .................. .................. .................. .................. ............... Casino Floor Supervisor Note From Dangelo Willis: Dispatched to the [...] he is working on with his PCP. [facility] was consulted. Red flags discussed. .................. .................. .................. .................. .................. .................. .................. ............... Disposition: Fulfilled Alicia Perez MD 30 [facility],[address], [place], [address], MOHINI PAGE 04/05/2024 20:37:09
--- OUTSIDE RECORDS SUMMARY | 2024-10-20 15:48 | XMS_ITS | Encounter Summary ---
Author Organization [facility] Address [address] [place] [address] Care Team Providers Care Recycle Coordinator Name Role Phone Tram Álvarez MD Primary Care Provider [phone] Encounter Details Date Type Department Care Team (Late st Contact Info) Description 08/05/2024 Lab Requisition [facility] - Main Lab [address] [facility] [place] [address] Prince Le MD 38 [facility] [address] [place], [address] Type 2 diabetes mellitus without complications [...] mg/dL LAB CHEMISTRY METHOD 08/06/2024 9:31 AM [facility] LAB Blood Venous blood specimen / Unknown Venipuncture / Unknown 08/06/2024 6:49 AM EST 08/06/2024 8:31 AM EST us Prince Le MD LAB BLOOD ORDERABLES Final Resul t [facility] LAB [address] [place] [address], * Comprehensive metabolic panel (08/06/2024 6:49 AM EST) Sodium 140 133 - 145 mmol/L LAB CHEMISTRY METHOD 08/06/2024 9:31 AM [facility] LAB Potassium 5.0 3.5 - 5.5 mmol/L LAB CHEMISTRY METHOD 08/06/2024 9:31 AM [facility] LAB Chloride 106 96 - 110 mmol/L LAB CHEMISTRY METHOD 08/06/2024 9:31 AM [facility] LAB CO2 30 21 - 32 mmol/L LAB CHEMISTRY METHOD 08/06/2024 9:31 AM [facility] LAB Anion Gap 4 3 - 11 LAB CHEMISTRY METHOD 08/06/2024 9:31 AM [facility] LAB Glucose 99 70 - 100 mg/dL LAB CHEMISTRY METHOD 08/06/2024 9:31 AM [facility] LAB BUN 25 5 - 25 mg/dL LAB CHEMISTRY METHOD 08/06/2024 9:31 AM [facility] LAB Creatinine 1.10 0.70 - 1.30 mg/dL LAB CHEMISTRY METHOD 08/06/2024 9:31 AM [facility] LAB eGFR 73 >=60 mL/min/1. 73m2 LAB CHEMISTRY METHOD 08/06/2024 9:31 AM [facility] LAB Comment:Calculation based on the??Chronic Kidney Disease Epidemiology Collaboration (CKD-EPI) equation refit??without adjustment for race. BUN/Creatinine Ratio 22.7 LAB CHEMISTRY METHOD 08/06/2024 9:31 AM [facility] LAB Calcium 9.5 8.5 - 10.5 mg/dL LAB CHEMISTRY METHOD 08/06/2024 9:31 AM [facility] LAB AST (SGOT) 33 10 - 42 unit/L LAB CHEMISTRY METHOD 08/06/2024 9:31 AM [facility] LAB ALT (SGPT) 26 10 - 60 unit/L LAB CHEMISTRY METHOD 08/06/2024 9:31 AM [facility] LAB Alkaline Phosphatase 51 42 - 121 unit/L LAB CHEMISTRY METHOD 08/06/2024 9:31 AM [facility] LAB Total Protein 6.6 6.0 - 8.0 g/dL LAB CHEMISTRY METHOD 08/06/2024 9:31 AM [facility] LAB Albumin 3.4 3.2 - 5.0 g/dL LAB CHEMISTRY METHOD 08/06/2024 9:31 AM [facility] LAB Total Bilirubin 0.4 0.0 - 1.4 mg/dL LAB CHEMISTRY METHOD 08/06/2024 9:31 AM [facility] LAB Blood Venous blood specimen / Unknown Venipuncture / Unknown 08/06/2024 6:49 AM EST 08/06/2024 8:31 AM EST us Prince Le MD LAB BLOOD ORDERABLES Final Resul t [facility] LAB [address] [place] [address], * (ABNORMAL) Complete blood count (08/06/2024 6:49 AM EST) WBC 8.2 4.8 - 10.8 K/mcL LAB HEMETOLOGY METHOD 08/06/2024 9:12 AM EST [facility] LAB RBC 4.50 4.50 - 5.50 M/mcL LAB HEMETOLOGY METHOD 08/06/2024 9:12 AM [facility] LAB Hemoglobin 12.2(L) 13.5 - 17.5 g/dL LAB HEMETOLOGY METHOD 08/06/2024 9:12 AM [facility] LAB Hematocrit 37.4(L) 42.0 - 54.0 % LAB HEMETOLOGY METHOD 08/06/2024 9:12 AM [facility] LAB MCV 84.0 79.0 - 98.0 FL LAB HEMETOLOGY METHOD 08/06/2024 9:12 AM [facility] LAB MCH 27.4 27.0 - 32.0 pcg LAB HEMETOLOGY METHOD 08/06/2024 9:12 AM [facility] LAB MCHC 32.6 32.0 - 37.0 g/dL LAB HEMETOLOGY METHOD 08/06/2024 9:12 AM [facility] LAB RDW 20.3(H) 11.0 - 15.0 % LAB HEMETOLOGY METHOD 08/06/2024 9:12 AM [facility] LAB Platelets 351 130 - 400 K/mcL LAB HEMETOLOGY METHOD 08/06/2024 9:12 AM [facility] LAB MPV 12.2(H) 7.0 - 11.0 FL LAB HEMETOLOGY METHOD 08/06/2024 9:12 AM [facility] LAB NRBC 0.0 <1.0 % LAB HEMETOLOGY METHOD 08/06/2024 9:12 AM [facility] LAB NRBC Absolute 0.00 <0.10 K/mcL LAB HEMETOLOGY METHOD 08/06/2024 9:12 AM [facility] LAB Blood Venous blood specimen / Unknown Venipuncture / Unknown 08/06/2024 6:49 AM EST 08/06/2024 8:31 AM EST us Prince Le MD LAB BLOOD ORDERABLES Final [facility]ul t [facility] [address] [place] [address], [place] [phone] documented in this encounter Visit Diagnoses Diagnosis Type 2 diabetes mellitus without complications (CMS/HCC V24, CMS/HCC V28) documented in this encounter Care Teams Recycle Coordinator Relationship Specialty Start Date End Date Tram Álvarez MD 2 [facility] , [address] [facility] Physician Associ D/B/A: [facility] [place] PCP - General Internal Medicine 03/30/18 documented as of this encounter
--- OUTSIDE RECORDS SUMMARY | 2024-10-20 15:49 | XMS_ITS | Encounter Summary ---
Author Organization [facility] Address [address] [place] [address] Care Team Providers Care Forest Fire Lookout Name Role Phone Tram Álvarez MD Primary Care Provider [phone] Encounter Details Date Type Department Care Team (Late st Contact Info) Description 09/23/2024 Lab Requisition [facility] - Main Lab 299 [facility] [employer] [address] Prince Le MD 38 [facility] [address] [place], [address] Type 2 diabetes mellitus without complications [...] Associated Diagnosis Comments COMPLETE BLOOD COUNT Routine 09/24/2024 5:45 AM EDT Type 2 diabetes mellitus without complications C-REACTIVE PROTEIN Routine 09/24/2024 5: 45 AM EDT Type 2 diabetes mellitus without complications COMPREHENSIVE METABOLIC PANEL Routine 09/24/2024 5:45 AM EDT Type 2 diabetes mellitus without complications documented in this encounter Results * (ABNORMAL) C-reactive protein (09/24/2024 5:45 AM EDT) C-Reactive Protein 2.54(H) <=0.50 mg/dL LAB CHEMISTRY METHOD 09/24/2024 12:40 PM EDT [facility] LAB Blood Venous blood specimen / Unknown Venipuncture / Unknown 09/24/2024 5:45 AM EDT 09/24/2024 9:53 AM EDT us Prince Le MD LAB BLOOD ORDERABLES Final Resul t [facility] LAB [address] [place] [address], [place] [phone] * (ABNORMAL) Comprehensive metabolic panel (09/24/2024 5:45 AM EDT) Sodium 140 133 - 145 mmol/L LAB CHEMISTRY METHOD 09/24/2024 12:42 PM [facility] LAB Potassium 4.8 3.5 - 5.5 mmol/L LAB CHEMISTRY METHOD 09/24/2024 12:42 PM [facility] LAB Chloride 107 96 - 110 mmol/L LAB CHEMISTRY METHOD 09/24/2024 12:42 PM [facility] LAB CO2 27 21 - 32 mmol/L LAB CHEMISTRY METHOD 09/24/2024 12:42 PM [facility] LAB Anion Gap 6 3 - 11 LAB CHEMISTRY METHOD 09/24/2024 12:42 PM [facility] LAB Glucose 81 70 - 100 mg/dL LAB CHEMISTRY METHOD 09/24/2024 12:42 PM [facility] BUN 18 5 - 25 mg/dL LAB CHEMISTRY METHOD 09/24/2024 12:42 PM [facility] LAB Creatinine 0.80 0.70 - 1.30 mg/dL LAB CHEMISTRY METHOD 09/24/2024 12:42 PM [facility] LAB eGFR 96 >=60 mL/min/1. 73m2 LAB CHEMISTRY METHOD 09/24/2024 12:42 PM [facility] LAB Comment:Calculation based on the??Chronic Kidney Disease Epidemiology Collaboration (CKD-EPI) equation refit??without adjustment for race. BUN/Creatinine Ratio 22.5 LAB CHEMISTRY METHOD 09/24/2024 12:42 PM EDT [facility] LAB Calcium 8.9 8.5 - 10.5 mg/dL LAB CHEMISTRY METHOD 09/24/2024 12:42 PM [facility] AST (SGOT) 15 10 - 42 unit/L LAB CHEMISTRY METHOD 09/24/2024 12:42 PM [facility] ALT (SGPT) 16 10 - 60 unit/L LAB CHEMISTRY METHOD 09/24/2024 12:42 PM [facility] LAB Alkaline Phosphatase 51 42 - 121 unit/L LAB CHEMISTRY METHOD 09/24/2024 12:42 PM [facility] Total Protein 6.1 6.0 - 8.0 g/dL LAB CHEMISTRY METHOD 09/24/2024 12:42 PM [facility] Albumin 2.7(L) 3.2 - 5.0 g/dL LAB CHEMISTRY METHOD 09/24/2024 12:42 PM [facility] LAB Total Bilirubin 0.4 0.0 - 1.4 mg/dL LAB CHEMISTRY METHOD 09/24/2024 12:42 PM [facility] LAB Blood Venous blood specimen / Unknown Venipuncture / Unknown 09/24/2024 5:45 AM EDT 09/24/2024 9:53 AM EDT us Prince Le MD LAB BLOOD ORDERABLES Final Resul t [facility] [address] [place] [address], * (ABNORMAL) Complete blood count (09/24/2024 5:45 AM EDT) WBC 7.3 4.8 - 10.8 K/mcL LAB HEMETOLOGY METHOD 09/24/2024 10:05 AM [facility] LAB RBC 3.70(L) 4.50 - 5.50 M/mcL LAB HEMETOLOGY METHOD 09/24/2024 10:05 AM [facility] LAB Hemoglobin 11.0(L) 13.5 - 17.5 g/dL LAB HEMETOLOGY METHOD 09/24/2024 10:05 AM [facility] LAB Hematocrit 35.4(L) 42.0 - 54.0 % LAB HEMETOLOGY METHOD 09/24/2024 10:05 AM [facility] LAB MCV 96.2 79.0 - 98.0 FL LAB HEMETOLOGY METHOD 09/24/2024 10:05 AM [facility] MCH 29.9 27.0 - 32.0 pcg LAB HEMETOLOGY METHOD 09/24/2024 10:05 AM [facility] LAB MCHC 31.1(L) 32.0 - 37.0 g/dL LAB HEMETOLOGY METHOD 09/24/2024 10:05 AM [facility] LAB RDW 16.4(H) 11.0 - 15.0 % LAB HEMETOLOGY METHOD 09/24/2024 10:05 AM [facility] LAB Platelets 480(H) 130 - 400 K/mcL LAB HEMETOLOGY METHOD 09/24/2024 10:05 AM [facility] LAB MPV 12.1(H) 7.0 - 11.0 FL LAB HEMETOLOGY METHOD 09/24/2024 10:05 AM [facility] LAB NRBC 0.0 <1.0 % LAB HEMETOLOGY METHOD 09/24/2024 10:05 AM [facility] LAB NRBC Absolute 0.00 <0.10 K/mcL LAB HEMETOLOGY METHOD 09/24/2024 10:05 AM [facility] LAB Blood Venous blood specimen / Unknown Venipuncture / Unknown 09/24/2024 5:45 AM EDT 09/24/2024 9:53 AM EDT us Prince Le MD LAB BLOOD ORDERABLES Final Resul t [facility] ([facility] [address] [place] [address], documented in this encounter Visit Diagnoses Diagnosis Type 2 diabetes mellitus without complications (CMS/HCC V24, CMS/HCC V28) documented in this encounter Care Teams Forest Fire Lookout Relationship Specialty Start Date End Date Tram Álvarez MD 2 [facility] , [address] Physician Associ D/B/A: [facility] [place] PCP - General Internal Medicine 03/30/18 documented as of this encounter
--- OUTSIDE RECORDS SUMMARY | 2024-10-20 15:49 | XMS_ITS | Encounter Summary ---
Author Organization [facility] Address [address] [place] [address] Care Team Providers Care Transaction Coordinator Name Role Phone Tram Álvarez MD Primary Care Provider [phone] Encounter Details Date Type Department Care Team (Late st Contact Info) Description 09/30/2024 Lab Requisition [facility] - Main Lab [address] [facility] [place] [address] Prince Le MD 38 [facility] [address] [place], [address] Type 2 diabetes mellitus without complications [...] Associated Diagnosis Comments COMPLETE BLOOD COUNT Routine 10/01/2024 8:01 AM EDT Type 2 diabetes mellitus without complications C-REACTIVE PROTEIN Routine 10/01/2024 8: 01 AM EDT Type 2 diabetes mellitus without complications COMPREHENSIVE METABOLIC PANEL Routine 10/01/2024 8:01 AM EDT Type 2 diabetes mellitus without complications documented in this encounter Results * (ABNORMAL) C-reactive protein (10/01/2024 8:01 AM EDT) C-Reactive Protein 0.73(H) <=0.50 mg/dL LAB CHEMISTRY METHOD 10/01/2024 11:57 AM [facility] LAB Blood Venous blood specimen / Unknown Venipuncture / Unknown 10/01/2024 8:01 AM EDT 10/01/2024 10:24 AM EDT us Prince Le MD LAB BLOOD ORDERABLES Final Resul t [facility] [address] [place] [address], [place] [phone] * (ABNORMAL) Comprehensive metabolic panel (10/01/2024 8:01 AM EDT) Sodium 134 133 - 145 mmol/L LAB CHEMISTRY METHOD 10/01/2024 12:02 PM [facility] Potassium 4.7 3.5 - 5.5 mmol/L LAB CHEMISTRY METHOD 10/01/2024 12:02 PM [facility] Chloride 101 96 - 110 mmol/L LAB CHEMISTRY METHOD 10/01/2024 12:02 PM [facility] CO2 27 21 - 32 mmol/L LAB CHEMISTRY METHOD 10/01/2024 12:02 PM [facility] Anion Gap 6 3 - 11 LAB CHEMISTRY METHOD 10/01/2024 12:02 PM [facility] Glucose 79 70 - 100 mg/dL LAB CHEMISTRY METHOD 10/01/2024 12:02 PM [facility] BUN 40(H) 5 - 25 mg/dL LAB CHEMISTRY METHOD 10/01/2024 12:02 PM [facility] Creatinine 1.55(H) 0.70 - 1.30 mg/dL LAB CHEMISTRY METHOD 10/01/2024 12:02 PM [facility] LAB eGFR 48(L) >=60 mL/min/1. 73m2 LAB CHEMISTRY METHOD 10/01/2024 12:02 PM [facility] LAB Comment:Calculation based on the??Chronic Kidney Disease Epidemiology Collaboration (CKD-EPI) equation refit??without adjustment for race. BUN/Creatinine Ratio 25.8 LAB CHEMISTRY METHOD 10/01/2024 12:02 PM [facility] Calcium 8.8 8.5 - 10.5 mg/dL LAB CHEMISTRY METHOD 10/01/2024 12:02 PM [facility] AST (SGOT) 63(H) 10 - 42 unit/L LAB CHEMISTRY METHOD 10/01/2024 12:02 PM [facility] ALT (SGPT) 30 10 - 60 unit/L LAB CHEMISTRY METHOD 10/01/2024 12:02 PM [facility] Alkaline Phosphatase 40(L) 42 - 121 unit/L LAB CHEMISTRY METHOD 10/01/2024 12:02 PM [facility] Total Protein 6.0 6.0 - 8.0 g/dL LAB CHEMISTRY METHOD 10/01/2024 12:02 PM [facility] Albumin 2.9(L) 3.2 - 5.0 g/dL LAB CHEMISTRY METHOD 10/01/2024 12:02 PM [facility] Total Bilirubin 0.4 0.0 - 1.4 mg/dL LAB CHEMISTRY METHOD 10/01/2024 12:02 PM [facility] Blood Venous blood specimen / Unknown Venipuncture / Unknown 10/01/2024 8:01 AM EDT 10/01/2024 10:24 AM EDT us Prince Le MD LAB BLOOD ORDERABLES Final Resul t [facility] [address] [place] [address], * (ABNORMAL) Complete blood count (10/01/2024 8:01 AM EDT) WBC 7.3 4.8 - 10.8 K/mcL LAB HEMETOLOGY METHOD 10/01/2024 11:11 AM [facility] RBC 4.00(L) 4.50 - 5.50 M/mcL LAB HEMETOLOGY METHOD 10/01/2024 11:11 AM [facility] Hemoglobin 11.8(L) 13.5 - 17.5 g/dL LAB HEMETOLOGY METHOD 10/01/2024 11:11 AM [facility] Hematocrit 37.0(L) 42.0 - 54.0 % LAB HEMETOLOGY METHOD 10/01/2024 11:11 AM [facility] MCV 93.7 79.0 - 98.0 FL LAB HEMETOLOGY METHOD 10/01/2024 11:11 AM [facility] MCH 29.9 27.0 - 32.0 pcg LAB HEMETOLOGY METHOD 10/01/2024 11:11 AM [facility] MCHC 31.9(L) 32.0 - 37.0 g/dL LAB HEMETOLOGY METHOD 10/01/2024 11:11 AM [facility] RDW 16.4(H) 11.0 - 15.0 % LAB HEMETOLOGY METHOD 10/01/2024 11:11 AM [facility] Platelets 416(H) 130 - 400 K/mcL LAB HEMETOLOGY METHOD 10/01/2024 11:11 AM [facility] MPV 11.3(H) 7.0 - 11.0 FL LAB HEMETOLOGY METHOD 10/01/2024 11:11 AM [facility] NRBC 0.0 <1.0 % LAB HEMETOLOGY METHOD 10/01/2024 11:11 AM [facility] NRBC Absolute 0.00 <0.10 K/mcL LAB HEMETOLOGY METHOD 10/01/2024 11:11 AM [facility] Blood Venous blood specimen / Unknown Venipuncture / Unknown 10/01/2024 8:01 AM EDT 10/01/2024 10:24 AM EDT us Prince Le MD LAB BLOOD ORDERABLES Final Resul t [facility] [address] [place] [address], documented in this encounter Visit Diagnoses Diagnosis Type 2 diabetes mellitus without complications (CMS/HCC V24, CMS/HCC V28) documented in this encounter Care Teams Transaction Coordinator Relationship Specialty Start Date End Date Tram Álvarez MD 2 [facility] , [address] Physician Associ D/B/A: [facility] [place] PCP - General Internal Medicine 03/30/18 documented as of this encounter
--- OUTSIDE RECORDS SUMMARY | 2024-10-20 15:49 | XMS_ITS | Encounter Summary ---
Author Organization [facility] Address [address] [place] [address] Care Team Providers Care Cutter Gas Name Role Phone Tram Álvarez MD Primary Care Provider [phone] Encounter Details Date Type Department Care Team (Late st Contact Info) Description 09/16/2024 Lab Requisition [facility] Main Lab [address] [facility] [employer] [address] Prince Le MD [address] [facility] [address] [place], [phone] Type 2 diabetes mellitus without complications [...] Associated Diagnosis Comments COMPLETE BLOOD COUNT Routine 09/17/2024 8:06 AM EDT Type 2 diabetes mellitus without complications (CMS/HCC) C-REACTIVE PROTEIN Routine 09/17/2024 8: 06 AM EDT Type 2 diabetes mellitus without complications (CMS/HCC) COMPREHENSIVE METABOLIC PANEL Routine 09/17/2024 8:06 AM EDT Type 2 diabetes mellitus without complications (CMS/HCC) documented in this encounter Results * (ABNORMAL) C-reactive protein (09/17/2024 8:06 AM EDT) C-Reactive Protein 1.84(H) <=0.50 mg/dL LAB CHEMISTRY METHOD 09/17/2024 11:[address] [facility] Blood Venous blood specimen / Unknown Venipuncture / Unknown 09/17/2024 8:06 AM EDT 09/17/2024 10:22 AM EDT us Prince Le MD LAB BLOOD ORDERABLES Final Resul t [facility] [address] [place] [address], [place] [phone] * (ABNORMAL) Comprehensive metabolic panel (09/17/2024 8:06 AM EDT) Sodium 139 133 - 145 mmol/L LAB CHEMISTRY METHOD 09/17/2024 11:[address] [facility] Potassium 4.6 3.5 - 5.5 mmol/L LAB CHEMISTRY METHOD 09/17/2024 11:[address] [facility] Chloride 103 96 - 110 mmol/L LAB CHEMISTRY METHOD 09/17/2024 11:[address] [facility] CO2 30 21 - 32 mmol/L LAB CHEMISTRY METHOD 09/17/2024 11:[address] [facility] Anion Gap 6 3 - 11 LAB CHEMISTRY METHOD 09/17/2024 11:[address] [facility] Glucose 93 70 - 100 mg/dL LAB CHEMISTRY METHOD 09/17/2024 11:[address] [facility] BUN 21 5 - 25 mg/dL LAB CHEMISTRY METHOD 09/17/2024 11:[address] [facility] Creatinine 0.97 0.70 - 1.30 mg/dL LAB CHEMISTRY METHOD 09/17/2024 11:[address] [facility] eGFR 85 >=60 mL/min/1. 73m2 LAB CHEMISTRY METHOD 09/17/2024 11:[address] [facility] Comment:Calculation based on the??Chronic Kidney Disease Epidemiology Collaboration (CKD-EPI) equation refit??without adjustment for race. BUN/Creatinine Ratio 21.6 LAB CHEMISTRY METHOD 09/17/2024 11:[address] [facility] Calcium 9.0 8.5 - 10.5 mg/dL LAB CHEMISTRY METHOD 09/17/2024 11:[address] [facility] AST (SGOT) 20 10 - 42 unit/L LAB CHEMISTRY METHOD 09/17/2024 11:[address] [facility] ALT (SGPT) 19 10 - 60 unit/L LAB CHEMISTRY METHOD 09/17/2024 11:[address] [facility] Alkaline Phosphatase 67 42 - 121 unit/L LAB CHEMISTRY METHOD 09/17/2024 11:[address] [facility] Total Protein 6.1 6.0 - 8.0 g/dL LAB CHEMISTRY METHOD 09/17/2024 11:[address] [facility] Albumin 2.8(L) 3.2 - 5.0 g/dL LAB CHEMISTRY METHOD 09/17/2024 11:[address] [facility] Total Bilirubin 0.4 0.0 - 1.4 mg/dL LAB CHEMISTRY METHOD 09/17/2024 11:[address] [facility] Blood Venous blood specimen / Unknown Venipuncture / Unknown 09/17/2024 8:06 AM EDT 09/17/2024 10:22 AM EDT us Prince Le MD LAB BLOOD ORDERABLES Final Resul t [facility] [address] [place] [address], * (ABNORMAL) Complete blood count (09/17/2024 8:06 AM EDT) WBC 9.2 4.8 - 10.8 K/mcL LAB HEMETOLOGY METHOD 09/17/2024 10:[address] [facility] RBC 3.80(L) 4.50 - 5.50 M/mcL LAB HEMETOLOGY METHOD 09/17/2024 10:[address] [facility] Hemoglobin 11.3(L) 13.5 - 17.5 g/dL LAB HEMETOLOGY METHOD 09/17/2024 10:[address] [facility] Hematocrit 35.1(L) 42.0 - 54.0 % LAB HEMETOLOGY METHOD 09/17/2024 10:[address] [facility] MCV 93.6 79.0 - 98.0 FL LAB HEMETOLOGY METHOD 09/17/2024 10:[address] [facility] MCH 30.1 27.0 - 32.0 pcg LAB HEMETOLOGY METHOD 09/17/2024 10:[address] [facility] MCHC 32.2 32.0 - 37.0 g/dL LAB HEMETOLOGY METHOD 09/17/2024 10:[address] [facility] RDW 17.5(H) 11.0 - 15.0 % LAB HEMETOLOGY METHOD 09/17/2024 10:[address] [facility] Platelets 352 130 - 400 K/mcL LAB HEMETOLOGY METHOD 09/17/2024 10:[address] [facility] MPV 11.5(H) 7.0 - 11.0 FL LAB HEMETOLOGY METHOD 09/17/2024 10:[address] [facility] NRBC 0.0 <1.0 % LAB HEMETOLOGY METHOD 09/17/2024 10:[address] [facility] NRBC Absolute 0.00 <0.10 K/[facility] LAB HEMETOLOGY METHOD 09/17/2024 10:35 AM EDT [facility] Blood Venous blood specimen / Unknown Venipuncture / Unknown 09/17/2024 8:06 AM EDT 09/17/2024 10:22 AM EDT us Prince Le MD LAB BLOOD ORDERABLES Final Resul t [facility] [address] [place] [address], documented in this encounter Visit Diagnoses Diagnosis Type 2 diabetes mellitus without complications (CMS/HCC V24, CMS/HCC V28) documented in this encounter Care Teams Cutter Gas Relationship Specialty Start Date End Date Tram Álvarez MD 2 [facility] , [address] Physician Associ D/B/A: [facility] [place], [place] PCP - General Internal Medicine 03/30/18 documented as of this encounter
--- OUTSIDE RECORDS SUMMARY | 2024-10-20 15:49 | XMS_ITS | Data Portability ---
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 Name Role Phone LANG HERRERA Primary Care Provider [phone] [facility] 4TH FLOOR OTHER Assessment [...] Address Organization Details Recorded Time Diabetes mellitus 40047223 Active 2019 YANG SWEET [address] [facility], [address], [place], [address], [facility] 0 09:29:33 Depressive disorder 61563949 Active 2019 YANG SWEET [address] [facility], [address], [place], [address], [facility] 0 09:29:39 Essential hypertensio n 55799827 Active 2019 YANG SWEET [address], [place], [address], [facility] 0 09:29:47 Hypercholes terolemia 90594584 Active 2019 YANG SWEET [address], [address], [place], [address], [facility] 0 09:29:57 Vitamin D deficiency 05892707 Active 2019 YANG SWEET [address], [address], [place], [address], [facility] 0 09:30:10 Insomnia 117710680 Active 2019 YANG SWEET [address], [place], [address], [place] [facility] 0 09:30:19 Spinal stenosis of lumbar region 65957863 Active 2019 YANG SWEET [address], [address], [place], [address], [place] [facility] 0 09:30:43 Total knee replacement Active 2022 Sonja Gibbs NP [address], [place], [address], [facility] 3 09:12:50 Acute pain of joint of knee 1456688832484 04 Active 2022 Sonja Gibbs NP [address] [facility], [address], [place], [address], [facility] 3 09:14:53 Constipatio n 60840835 Active 2022 Sonja Gibbs NP [address] [facility], [address], [place], [address], [facility] 3 10:15:39 Osteoarthri tis of knee 011097486 Active 2022 Judie Camacho MD [address] [facility], [address], [place], [address], [facility] 3 20:37:14 Chronic kidney disease stage 1 435234435 Active 2022 Judie Camacho MD [address] [facility], [address], [place], [address], [facility] 3 20:53:16 Chronic diastolic heart failure 884203624 Active 2023 Judie Camacho MD [address] [facility], [address], [place], [address], [facility] 4 21:28:14 Chronic kidney disease stage 2 153688648 Active 2023 Judie Camacho MD [address] [facility], [facility] [address], [place], [address], [facility] 4 21:28:20 Problem Notes None recorded. Procedures Surgical History Date Name Laterality Status Provider Name and Address Organization Details Recorded Time laminotomy completed YANG SWEET [address] [facility], [facility] [address], [place], [address], [facility] 01/06/2020 09:27:06 Imaging Results None recorded. Procedure Notes None recorded. Medical Equipment None Reported. Allergies Allergen ID Allergen Name Allergen Category Reaction Reaction Severity Criticality Documentation Date Start Date Code Code System Note Provider Name and Address Organization Details Recorded Time 93162 Product containin g penicilli n (product) medicatio n rash Not available Not available 01/06/2020 48761 8001 SNOMED Not Available Not Available Not [...] Avai lable Vitals Date Recorded Body height Systolic blood pressure Diastolic blood pressure Provider Name and Address Organization Details Last Updated DateTime 09/11/2024 198.12 cm 108 mm[Hg] 71 mm[Hg] Prince Le MD [address] [facility], [address], [place], [address], [facility] 09/11/2024 11:45:45 Date Recorded Body height Body weight Heart rate Respiratory rate Body temperature Oxygen saturation Oxygen saturation in Arterial blood by Pulse oximetry Systolic blood pressure Diastolic blood pressure Provider Name and Address Organization Details Last Updated DateTime 5 198.12 cm 44261.3 g 76 /min 18 /min 98.6 [degF] 97 % 97 % 102 mm[Hg] 68 mm[Hg] Sonja Gibbs NP [address] , [address], [place], [address], [facility] 5 09:33:55 Date Recorded Body height Body mass index (BMI) Body weight Heart rate Respiratory rate Body temperature Oxygen saturation Oxygen saturation in Arterial blood by Pulse oximetry Systolic blood pressure Diastolic blood pressure Provider Name and Address Organization Details Last Updated DateTime 5 198.12 cm 19.8 kg/m2 85886.3 g 90 /min 18 /min 97.6 [degF] 97 % 97 % 102 mm[Hg] 70 mm[Hg] Sonja Gibbs NP [address] , [address], [place], [address], [facility] 5 09:48:14 Date Recorded Body height Body mass index (BMI) Body weight Heart rate Respiratory rate Body temperature Oxygen saturation Oxygen saturation in Arterial blood by Pulse oximetry Systolic blood pressure Diastolic blood pressure Provider Name and Address Organization Details Last Updated DateTime 5 198.12 cm 19.1 kg/m2 01932.7 4 g 76 /min 18 /min 97.6 [degF] 98 % 98 % 90 mm[Hg] 64 mm[Hg] Sonja Gibbs NP [address] , [address], [place], [address], [facility] 5 16:46:26 Date Recorded Heart rate Respiratory rate Body temperature Oxygen saturation Oxygen saturation in Arterial blood by Pulse oximetry Systolic blood pressure Diastolic blood pressure Provider Name and Address Organization Details Last Updated DateTime 5 76 /min 18 /min 97.6 [degF] 98 % 98 % 89 mm[Hg] 60 mm[Hg] Sonja Gibbs NP [address] , [address], [place], [address], [facility] 5 09:51:01 Date Recorded Body height Provider Name an d Address Organization Details Last Updated DateTime 10/20/2024 198.12 cm Camila Silva P [address] , [address], [place], [address], [facility] 10/20/2024 09:22:14 Social History Question Answer Notes LastModified by Organizat ion Details LastModified Time Tobacco Smoking Status Former Smoker Sonja Gibbs, DIAMOND [address] [facility], [address], [place], [address], [facility] 02/14/2023 10:11:47 Do You Have An Advance Directive? Yes FULL CODE No Dialysis And Okay To Use Nutrition-us e Hydration Information not available 02/14/2023 What Is Your Level Of Alcohol Consumption? Occasional Information not available 02/14/2023 How Much Tobacco Do You Chew? None [id number] Information not available 05/02/2020 What Is Your Code Status? Full Code Information not available 02/14/2023 Do You Or Have You Ever Used E-cigarettes Or Vape? Never Used Electronic Cigarettes [id number] Information not available 05/02/2020 Where Do You Live? Apartment Elevator Information not available 02/19/2023 Legal Guardian? No Informati on not available 02/14/2023 Do You Have A Medical Power Of Collection Support Specialist? Yes [id number] Information not available 05/02/2020 What Was The [...] Used Smokeless Tobacco? Never Used Smokeless Tobacco [id number] Information not available 05/02/2020 Do You Use Any Illicit Or Recreational Drugs? No Information not available 02/14/2023 Has Tobacco Cessation Counseling Been Provided? No N/a As Pt. No Longer Smokes Information not available 02/19/2023 How Many Years Have You Smoked Tobacco? 40 [id number] Information not available 05/02/2020 Do You Have [...] Influenza, adjuvanted, quadrivalent, PF 2 [facility] 09:57:53 Influenza, adjuvanted, quadrivalent, PF 3 [facility] 09/05/2023 11:45:01 pneumococcal polysaccharide PPV23 8 completed [facility] 05/07/2024 15:50:52 influenza, unspecified formulation 4 completed Sade [facility] 05/07/2024 15:51:08 SARS-COV-2 (COVID-19) vaccine, UNSPECIFIED 1 completed Sade [facility] 05/07/2024 15:51:23 SARS-COV-2 (COVID-19) vaccine, UNSPECIFIED 1 completed Sade [facility] 05/07/2024 15:51:30 SARS-COV-2 (COVID-19) vaccine, UNSPECIFIED 3 completed Sade [facility] 05/07/2024 15:51:38 Past Encounters Encounter ID Performer Location Encounter Start Date Encounter Closed Date Diagnosis/Indication Diagnosis SNOMED-CT Code Diagnosis ICD10 Code Diagnosis Note [id number] YANG SWEET [address] [address] 01/06/2020 09:16:35 01/10/2020 16:25:01 Spinal stenosis of lumbar region 06206379 M48.062 s/p L4-5 decompress ion 01/03/20 by [...] 10 days-appt already set up Diabetes mellitus 790945 09 E11.9 trulicity 1.5 mg q week on sundays lantus 45 units qd SSI januvia 100 mg qd monitor A1c monitor for s/s of hypo/hyper glycemia Essential hypertension 65299734 I10 amlodipine 5 mg qd benazepril 20 mg q hs and 40 mg q am HCTZ 50 mg qd monitor b/p and labs Hypercholesterolemia 136 20172 E78.2 atorvastat in 20 mg qd fenofibrat e 145 mg qd monitor labs Insomnia 581788813 G47.0 9 was on trazodone 50 mg [...] pt monitor mood Vitamin D deficiency 347 27436 E56.8 vitamin D3 1000 iu qd monitor levels [id number] Estefany Curtis MD [address] [address] 01/07/2020 07:31:48 01/10/2020 16:31:47 Depressive disorder 31035852 F32.89 sertraline 50 mg dailywill monitor Diabetes mellitus 796279 09 E11.9 Humalog per sliding scaleJanuv ia 100 mg dailyLantu s 45 mg at hsmetformi n 1000 mg bidTrulici ty 1.5 mg weeklywill monitor Essential hypertension 88677625 I10 amlodipine 5 mg dailybenaz epril 40 mg dailyHCTZ 50 mg dailywill monitor Hypercholesterolemia 136 20193 E78.00 atorvastat in 20 mg dailyfenof ibrate 145 mg dailywill monitor Spinal mg nosis of lumbar region 75790404 M48.061 s/p recent decompress ion L4-5 cyclobenza tutu 10 mg tidnortrip tyline 25 mg bid diclofenac 75 mg bidgabapen tin 300 mg bid and 600 mg at hsoxycodon e 5-10 mg q4h prnfu neurosurge ryPT/OT [id number] PALAK 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, PATIENT 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 [facility] [address] [address] 01/11/2020 08:12:58 01/14/2020 14:03:39 Depressive disorder 73931926 F32.9 sertraline 50 mg daily will monitor Spinal mg nosis of lumbar region 17052929 M48.061 cyclobenza tutu 10 mg tid nortriptyl ine 25 mg bid diclofenac 75 mg bid gabapentin 300 mg bid and 600 mg at hs oxycodone 5-10 mg q4h prn fu neurosurge ry PT/OT [id number] PALAK 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, PATIENT 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 [facility] [address] [address] 01/14/2020 07:57:00 01/18/2020 09:07:39 Depressive disorder 21183332 F32.9 sertraline 50 mg daily will monitor Diabetes mellitus 109932 09 E11.9 monitor poc glucose Humalog per sliding scaleJanuv ia 100 mg daily Lantus 45 mg at hs metformin 1000 mg bid Trulicity 1.5 mg weekly will monitor Essential hypertension 88455093 I10 amlodipine 5 mg dailybenaz epril 40 mg daily HCTZ 50 mg daily will monitor Hypercholesterolemia 136 58244 E78.00 atorvastat in 20 mg daily fenofibrat e 145 mg daily will monitor Spinal mg nosis of lumbar region 62219923 M48.061 cyclobenza tutu 10 mg tid nortriptyl ine 25 mg bid diclofenac 75 mg bid gabapentin 300 mg bid and 600 mg at hs oxycodone 5-10 mg q4h prn fu neurosurge ry PT/OT [id number] YANG SWEET [facility] [address] 01/17/2020 08:06:37 01/25/2020 11:54:15 Spinal stenosis of lumbar region 05038183 M48.062 s/p L4-5 decompress ion 01/03/20 by Tana diclofenac on 01/08/20-75 mg bid oxycodone 5-10 mg q 4 hrs prn cyclobenza tutu 10 mg tid neurontin 300 mg bid and 600 mg q hs follow up with surgeon on 02/15/20 and as needed Diabetes mellitus 528246 09 E11.9 trulicity 1.5 mg q week on sundays lantus 45 units qd januvia 100 mg qd follow up with PCP Essential hypertension 00208178 I10 amlodipine 5 mg qd benazepril 40 mg q am HCTZ 50 mg qd follow up with PCP Hypercholesterolemia 136 07943 E78.2 atorvastat in 20 mg qd fenofibrat e 145 mg qd follow up with PCP Insomnia 102176022 G47.0 9 follow up with PCP Depressive disorder 3548 9007 F32.89 zoloft 50 mg qd nortriptyl ine 25 mg q 12 hrs follow up with PCP Vitamin D deficiency 347 31293 E56.8 vitamin D3 1000 iu qd follow up with PCP [id number] [facility] [address] 02/14/2023 08:55:37 02/19/2023 09:34:58 Spinal stenosis of lumbar region 34908685 M48.062 s/p L4-5 decompress ion 01/03/20 by Roel knee surgery oxycodonec yclobenzap rine 10 mg bedtime prnmonitor pain Diabetes mellitus 715587 09 E11.9 cont home regimentru licity 1.5 sc at 0900 on iba 55 units sc bedtimemet formin 500 mg er bidjardian ce 25 mg qdvascepa 2 g po bidmonitor bs bid x 3 days and reeval Essential hypertension 98628184 I10 hydralazin e 10 mg po tidbenazep ril 40 mg q am (per dc instructio ns and pt on both)lisin opril 20 mg po daily (per dc instructio ns and pt on both)furos emide 20 mg po dailymonit or bp, hr Hypercholesterolemia 136 48575 E78.2 atorvastat in 20 mg qdfenofibr ate 145 mg qd Insomnia 045148082 G47.0 9 follow up with PCP Depressive disorder 3898 9007 F32.89 lorazepam 1 mg po bidmonitor for anxiety Vitamin D deficiency 347 97229 E56.8 vitamin D3 1000 iu qd Acute pain of joint of knee 2556785145 90314 M25.569 sp post op 02/11/23 total knee [...] stregth, gait trainingcb c bmp weekly Constipation 49142734 K5 9.00 post op constipati oncont docusate 100 mg po bid*start milk of magnesia 30 cc po today and q 24 hours prn constipati on [id number] Judie Camacho MD [address] [address] 02/18/2023 19:53:10 02/20/2023 08:52:13 Spinal stenosis of lumbar region 15695695 M48.062 With chronic back pain. Uses oxycodone 5 mg TID at baseline and cyclobenza tutu 10 mg qhs prnPT/OT as above.Tabitha tor pain Diabetes mellitus 938360 09 E11.9 Last HgA1C was 7.9 on 01/31/23, BS have been good since hereReport eden doesn't use all his meds regularly due to cost.Vasu nue trulicity 1.5 weekly, tresiba 55 U qd, metformin 500 mg BID, and jardiance 25 mg qdMonitor fingerstic ks BID and HgA1C as outpt. Essential hypertension 01818682 I10 BP in good control.Co ntinue hydralazin e 10 mg TID, benazepril 40 mg qd, lisinopril 20 mg qd and furosemide 20 mg qd.Monitor BP and labsUnclea r why pt is on 2 SHANNON inhibitors , but will leave for PCP to manage. Vitamin D deficiency 347 84596 E56.8 Continue vitamin D3 1000 IU qdMonitor as outpt. Constipation 06652268 K5 9.09 Will add miralax 17 gms qd and continue docusate 100 mg BID and MOM prn.Monito r bowel function Osteoarthr itis of knee 656078046 M17.12 Z96.652 Recovering slowly after LTKR.Vasu nue [...] f/u Chronic ki dney disease stage 1 104384638 N18.1 At baseline.C ontinue to avoid nephrotoxi c meds as able.Monit or labs.Renal consult prn. Hyperlipidemia 65701059 E78.49 E78.1 Last lipids in system from 02/2021, trig were still high, but TC and HDL ok.Continu e atorvastat in 20 mg qd, fenofibrat e 145 mg qd and vascepa 2 g BID.Will get lipid profile while here, then f/u with PCP as outpt. 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 was still on sertraline , but per inpt notes, not filled at either [facility] or [facility] recently.C ontinue lorazepam 1 mg BID.monito r for anxiety [id number] [facility] [address] 02/21/2023 10:00:03 02/25/2023 10:32:50 Osteoarthritis of knee 139832019 M17.12 Z96.652 LTKR originally done on ontinu [...] f/u Spinal mg nosis of lumbar region 46670852 M48.062 With chronic back pain.oxyco done 5 mg TID at baseline and cyclobenza tutu 10 mg qhs prn at baseline, now see above osteoarthr itis of knee for new pain regimenPT/ OT as above.Tabitha tor pain Diabetes mellitus 845536 09 E11.9 Last HgA1C was 7.9 on 01/31/23, BS have been good since hereContin uetrulicit y 1.5 weeklytres iba 55 U qdmetformi n 500 mg BID,jardia nce 25 mg qdMonitor fingerstic ks BID and HgA1C as outpt. Essential hypertension 40411138 I10 BP in good control. slightly high likely due to painContin uehydralaz ine 10 mg TIDbenazep ril 40 mg qdlisinopr il 20 mg qdfurosemi de 20 mg qd.Monitor BP and labsUnclea r why pt is on 2 SHANNON inhibitors , but will leave for PCP to manage. (pt on this regimen for many years and reports it works) Hyperlipidemia 64357860 E78.49 E78.1 Last lipids in system from 02/2021, trig were still high, but TC and HDL ok.Continu eatorvasta tin 20 mg qdfenofibr ate 145 mg qdvascepa 2 g BID.lipid profile pendingf/u with PCP as outpt. Mixed anxi ety and depressive disorder 277543758 F41.8 Per pt. was still on sertraline , but per inpt notes, not filled at either [facility] or [facility] recently.C ontinuelor azepam 1 mg BID.monito r for anxiety Vitamin D deficiency 347 80707 E56.8 Continuevi tamin D3 1000 IU qdMonitor as outpt. Constipation 15251436 K5 9.09 with hard stools per report latelymira lax 17 gms qddocusate 100 mg BIDMOM prn.Monito r bowel function Chronic ki dney disease stage 1 575177164 N18.1 At baseline.C ontinue to avoid nephrotoxi c meds as able.Monit or labs.Renal consult prn. [id number] Sonja Gibbs NP [address] [address] 02/24/2023 08:59:01 02/28/2023 10:19:51 Osteoarthritis of knee 885374895 M17.12 Z96.652 LTKR originally done on inc [...] ortho on 02/[address] [place] [place] into this appt with office as pt states his cheng states it is for PT)Keep aquacel dressing in place until f/u Diabetes mellitus 483789 09 E11.9 Last HgA1C was 7.9 on 01/31/23, BS have been good since hereContin uetrulicit y 1.5 weeklytres iba 55 U qdmetformi n 500 mg BID,jardia nce 25 mg qdMonitor fingerstic ks BID and HgA1C as outpt. Spinal mg nosis of lumbar region 15178020 M48.062 With chronic back pain.oxyco done 5 mg TID at baseline and cyclobenza tutu 10 mg qhs prn at baseline, now see above osteoarthr itis of knee for new pain regimenPT/ OT as above.Tabitha tor pain Essential hypertension 51964164 I10 BP slightly high likely due to painContin uehydralaz ine 10 mg TIDbenazep ril 40 mg qdlisinopr il 20 mg qdfurosemi de 20 mg qd.Monitor BP and labsUnclea r why pt is on 2 SHANNON inhibitors , but will leave for PCP to manage. (pt on this regimen for many years and reports it works) Hyperlipidemia 39744265 E78.49 E78.1 Last lipids in system from 02/2021, trig were still high, but TC and HDL ok.Continu eatorvasta tin 20 mg qdfenofibr ate 145 mg qdvascepa 2 g BID.lipid profile pendingf/u with PCP as outpt. Mixed anxi ety and depressive disorder 924739444 F41.8 Per pt. was still on sertraline , but per inpt notes, not filled at either [facility] or [facility] recently.C ontinuelor azepam 1 mg BID.monito r for anxiety Vitamin D deficiency 347 78526 E56.8 Continuevi tamin D3 1000 IU qdMonitor as outpt. Constipation 95461174 K5 9.09 with hard stools per report latelyincr ease miralax 17 gms qd to bidcont docusate 100 mg BIDMOM prn. q 24 hours if hard stools or no bmMonitor bowel function Chronic ki dney disease stage 1 522230311 N18.1 At baseline.C ontinue to avoid nephrotoxi c meds as able.Monit or labs.Renal consult prn. [id number] Sonja Gibbs NP [address] [address] 02/28/2023 08:24:09 03/03/2023 11:01:20 Osteoarthritis of knee 386926675 M17.12 Z96.652 LTKR originally done on oxy [...] and make 2 week appt today Constipation 26035970 K5 9.09 resolvingc ontmiralax 17 gms qd to biddocusat e 100 mg BIDMOM prn. q 24 hours if hard stools or no bmMonitor bowel function Diabetes mellitus 723381 09 E11.9 Last HgA1C was 7.9 on 01/31/23, BS have been good since hereContin uetrulicit y 1.5 weeklytres iba 55 U qdmetformi n 500 mg BID,jardia nce 25 mg qdMonitor fingerstic ks BID and HgA1C as outpt. Spinal mg nosis of lumbar region 13902764 M48.062 With chronic back pain.oxyco done 5 mg TID at baseline and cyclobenza tutu 10 mg qhs prn at baseline, now see above osteoarthr itis of knee for new pain regimenPT/ OT as above.Tabitha tor pain Essential hypertension 38936184 I10 BP slightly high likely due to pain, will monitor closelyCon tinuehydra lazine 10 mg TIDbenazep ril 40 mg qdlisinopr il 20 mg qdfurosemi de 20 mg qd.Monitor BP and labsUnclea r why pt is on 2 SHANNON inhibitors , but will leave for PCP to manage. (pt on this regimen for many years and reports it works) Hyperlipidemia 77445177 E78.49 E78.1 Last lipids in system from 02/2021, trig were still high, but TC and HDL ok.Continu eatorvasta tin 20 mg qdfenofibr ate 145 mg qdvascepa 2 g BID.lipid profile pendingf/u with PCP as outpt. Mixed anxi ety and depressive disorder 503482573 F41.8 Per pt. was still on sertraline , but per inpt notes, not filled at either [facility] or [facility] recently.C ontinuelor azepam 1 mg BID.monito r for anxiety Vitamin D deficiency 347 49344 E56.8 Continuevi tamin D3 1000 IU qdMonitor as outpt. Chronic ki dney disease stage 1 555026195 N18.1 At baseline.C ontinue to avoid nephrotoxi c meds as able.Monit or labs.Renal consult prn. [id number] Sonja Gibbs NP [address] [address] 03/03/2023 08:59:22 03/05/2023 08:05:09 Osteoarthritis of knee 712481396 M17.12 Z96.652 LTKR originally done on oxy [...] and make fu appt-still no note Constipation 27270262 K5 9.09 better on this regimencon tmiralax 17 gms qd to biddocusat e 100 mg BIDMOM prn. q 24 hours if hard stools or no bmMonitor bowel function Diabetes mellitus 992304 09 E11.9 Last HgA1C was 7.9 on 01/31/23, BS have been good since hereContin uetrulicit y 1.5 weeklytres iba 55 U qdmetformi n 500 mg BID,jardia nce 25 mg qdMonitor fingerstic ks BID and HgA1C as outpt. Spinal mg nosis of lumbar region 02801098 M48.062 With chronic back pain.oxyco done 5 mg TID at baseline and cyclobenza tutu 10 mg qhs prn at baseline, now see above with osteoarthr itis of knee for new pain regimenPT/ OT as above.Tabitha tor pain Essential hypertension 48216068 I10 BP slightly high likely due to pain now improving, will monitor closely 130s/70sCo ntinuehydr alazine 10 mg TIDbenazep ril 40 mg qdlisinopr il 20 mg qdfurosemi de 20 mg qd.Monitor BP and labsUnclea r why pt is on 2 SHANNON inhibitors , but will leave for PCP to manage. (pt on this regimen for many years and reports it works) Hyperlipidemia 54780122 E78.49 E78.1 Last lipids in system from 02/2021, trig were still high, but TC and HDL ok.Continu eatorvasta tin 20 mg qdfenofibr ate 145 mg qdvascepa 2 g BID.lipid profile pendingf/u with PCP as outpt. Mixed anxi ety and depressive disorder 446052034 F41.8 Per pt. was still on sertraline , but per inpt notes, not filled at either [facility] or [facility] recently.C ontinuelor azepam 1 mg BID.monito r for anxiety Chronic ki dney disease stage 1 792184768 N18.1 At baseline.C ontinue to avoid nephrotoxi c meds as able.Monit or labs.Renal consult prn. Edema of l ower extremity 624996595 R60.0 nsg and pt state bilateral feet swelling, now better this am after feet up all night, likely dependent as he is up more throughout the day 03/03 start compressio n stockings on in am off in pmmonitor [id number] Sonja Gibbs NP [facility] [address] [place] [address] 03/06/2023 11:01:35 03/11/2023 09:41:09 Osteoarthritis of knee 216192384 M17.12 Z96.652 LTKR originally done on 02/11oxycodo [...] ortho on 02/[address] Juana Apple ([facility] [place] into this appt with office as pt states his cheng states it is for PT)fu with ortho and pcp outpt and PT services amended orderpt has pain and oxycodone not availablet ramadol 100 mg po q 6 hours prn x 24 hoursmonit or Constipation 74767005 K5 9.09 miralax 17 gms qd to bid, titrate as neededdocu sate 100 mg BIDMOM prn. q 24 hours if hard stools or no bmMonitor bowel function outpt with vna pcp Diabetes mellitus 858826 09 E11.9 Last HgA1C was 7.9 on 01/31/23, BS have been good since heretrulic ity 1.5 weeklytres iba 55 U qdmetformi n 500 mg BID,jardia nce 25 mg qdMonitor fingerstic ks BID and HgA1C as outpt.foll ow with pcp outpt Spinal mg nosis of lumbar region 06272122 M48.062 With chronic back pain.oxyco done 5 mg TID at baseline(s ee increased regimen above osteoarthr itis please ) and cyclobenza tutu 10 mg qhs prn at baselinePT /OT as above.Tabitha tor pain outpt with pcp Essential hypertension 67001009 I10 BP slightly high likely due to painContin uehydralaz ine 10 mg TIDbenazep ril 40 mg qdlisinopr il 20 mg qdfurosemi de 20 mg qd.Monitor BP and labsUnclea r why pt is on 2 SHANNON inhibitors , but will leave for PCP to manage outpt. (pt on this regimen for many years and reports it works) Hyperlipidemia 13745446 E78.49 E78.1 Last lipids in system from 02/2021, trig were still high, but TC and HDL ok.Continu eatorvasta tin 20 mg qdfenofibr ate 145 mg qdvascepa 2 g BID.lipid profile pendingf/u with PCP as outpt. Mixed anxi ety and depressive disorder 561932152 F41.8 Per pt. was still on sertraline , but per inpt notes, not filled at either [facility] or [facility] recently.C ontinuelor azepam 1 mg BID.monito r for anxiety outpt with pcp Vitamin D deficiency 347 52554 E56.8 Continuevi tamin D3 1000 IU qdMonitor as outpt with pcp Chronic ki dney disease stage 1 934839954 N18.1 At baseline.C ontinue to avoid nephrotoxi c meds as able.Monit or labs.Renal consult prn outpt Hypercholesterolemia 136 85369 E78.2 atorvastat in 20 mg qdfenofibr ate 145 mg qdfu with pcp outpt Insomnia 760790359 G47.0 9 follow up with PCP outpt [id number] [facility] [address] 05/07/2024 18:25:29 05/10/2024 08:52:32 Chronic diastolic heart failure 357136345 I50.32 Pt says he never had any [...] labs. Spinal mg nosis of lumbar region 73006362 M48.062 With chronic back pain. Uses oxycodone 10 mg QID at baseline (checked in [facility]).W ritten for 5 mg QID at hospital, will change back to baseline dose.Very deconditio amaury.Needs PT/OT for strengthen ing, balance, gait training, safety and function.C ontinue fall precaution s.Monitor for safety.Mon itor pain controlCel ebrex on hold. Hypercholesterolemia 136 41474 E78.2 Continue atorvastat in 20 mg qd, fenofibrat e 145 mg qd, vascepa 2 g BID, and ASA 81 mg qd.Monitor labs as outpt. Essential hypertension 33065518 I10 SBP a little high yesterday, not checked todayConti nue meds as above and amlodipine 2.5 mg qd.Monitor BP and labsDaily BPs ordered. Diabetes mellitus 239615 09 E11.9 Last HgA1C was 7.9 in 11/2023.[place]ol [place] [facility] ue trulicity 1.5 weekly, tresiba 35 U qd, metformin 500 mg BID, januvia 25 mg qd, and SSITresiba not yet delivered, ok to use Lantus instead tonight.Mo nitor fingerstic ks TID and HgA1C as outpt. Depressive disorder 3188 9007 F32.89 In hx.On no meds.Monit or mood.Psych consult prn. Chronic ki dney disease stage 2 470238950 N18.2 At baseline.C ontinue to avoid nephrotoxi c meds as able.Monit or labs.Renal consult prn. Benign pro static hyperplasia without outflow obstruction 534362739 N40.0 In hx, with some issues with retention at times.Cont inue tamsulosin 0.4 mg qd. [id number] MARIE TORRES NP [address] [address] 05/13/2024 13:47:03 05/14/2024 10:52:03 Chronic diastolic heart failure 609448089 I50.32 Pt says he never had any [...] 3 Spinal mg nosis of lumbar region 96557977 M48.062 With chronic back pain. Uses oxycodone 10 mg QID at baseline (checked in [facility]).W ritten for 5 mg QID at hospital, will change back to baseline dose.Very deconditio amaury.Needs PT/OT for strengthen ing, balance, gait training, safety and function.C ontinue fall precaution s.Monitor for safety.Mon itor pain controlCel ebrex on hold. Diabetes mellitus 824314 09 E11.9 Last HgA1C was 7.9 in 11/2023.Fol lowed by endocrine [place] [facility]Contin ue trulicity 1.5 weekly, tresiba 35 U qd, metformin 500 mg BID, januvia 25 mg qd, and SSITresiba not yet delivered, ok to use Lantus instead tonight.Mo nitor fingerstic ks TID and HgA1C as outpt. Essential hypertension 61907727 I10 SBP a little high yesterday, not checked todayConti nue meds as above and amlodipine 2.5 mg qd.Monitor BP and labsDaily BPs ordered. Chronic ki dney disease stage 2 528154276 N18.2 At baseline.C ontinue to avoid nephrotoxi c meds as able.Monit or labs.Renal consult prn. Hypercholesterolemia 136 44674 E78.2 Continue atorvastat in 20 mg qd, fenofibrat e 145 mg qd, vascepa 2 g BID, and ASA 81 mg qd.Monitor labs as outpt. Depressive disorder 3548 9007 F32.89 In hx.On no meds.Monit or mood.Psych consult prn. Benign pro static hyperplasia without outflow obstruction 134926268 N40.0 In hx, with some issues with retention at times.Cont inue tamsulosin 0.4 mg qd. Pain in right arm 396091 004 M79.601 New onset, x 2-3d. Denies trauma or injury.Exa m limited due to painPMR assessed as well.Plan -Check x rays and venous USOxycodon e already available for pain.Monit or closely. [id number] Sonja Gibbs, DIAMOND [facility] [address] [place] [address] 05/14/2024 11:54:20 05/17/2024 11:03:10 Chronic diastolic heart failure 270437050 I50.32 Pt's main c/o was and continues [...] today Spinal mg nosis of lumbar region 14494939 M48.062 With chronic back pain. hx of oxycodone 10 mg QID at baseline (PATIENT SCHEDULER checked in [facility]). and changed to baseline dose as hosp decreased it to 5mg QID prnVery deconditio amaury.Needs PT/OT for strengthen ing, balance, gait training, safety and function.C ontinue fall precaution s.Monitor for safety.Mon itor pain controlCel ebrex on hold. Diabetes mellitus 848983 09 E11.9 BS 127 today and stable, [facility] HgA[facility]C was 7.9 in 11/2023.Con [place] 1.5 weekly, tresiba 35 U qd, metformin 500 mg BID, januvia 25 mg qd, and SSIMonitor fingerstic ks TID and HgA1C as outpt. Essential hypertension 91723400 I10 bp stable 128/72 todayConti nue meds as above and amlodipine 2.5 mg qd.Monitor BP and labsDaily BPs ordered. Chronic ki dney disease stage 2 016838639 N18.2 At baseline.C ontinue to avoid nephrotoxi c meds as able.Monit or labs.Renal consult prn. Hypercholesterolemia 136 01681 E78.2 Continueat orvastatin 20 mg qd, fenofibrat e 145 mg qd, vascepa 2 g BID, and ASA 81 mg qd.Monitor labs as outpt. Depressive disorder 3548 9007 F32.89 In hx.On no meds.Monit or mood.Psych consult prn. Benign pro static hyperplasia without outflow obstruction 732528103 N40.0 In hx, with some issues with retention at times.Cont inuetamsul osin 0.4 mg qd. Pain in right arm 845755 004 M79.601 New onset, x 2-3d. Denies trauma or injury. feels it is improvingx rays and venous US to right arm negative for acute findingsOx ycodone for pain.05/14 seen by physiatry on 05/13 rec: tyl 1000 mg po tid and lidocaine patch, will agree and order todayMonit or closely. Dizziness 140196720 R42 pt reports dizziness today directly related to the room being hot05/14 requests to move room, decrease heat or leave facility, nursing aware and heat reduced, vitals and BS stablemoni tor closely for improvemen t or changes Tinea pedis 2223865 B35. 3 clotrimazo le 1 % cream bid x 10 daysmonito r [id number] Sonja Gibbs, DIAMOND [facility] [place] [address] 05/20/2024 07:43:04 05/21/2024 11:07:38 Pain in right arm 387806419 M79.601 New onset, x 2-3d. Denies trauma or injury. feels it is improvingx rays and venous US to right arm negative for acute findingsOx ycodone for pain.physi atry rec tyl 1000 mg po tid and lidocaine patch which is helping but remains with pain. will reconsult1 07/20 will increase cyclobenza tutu to bid todayMonit or closely. Tinea pedis 5879802 B35. 3 improving slightlycl otrimazole 1 % cream bid x 10 daysmonito r Chronic di astolic heart failure 105217507 I50.32 Pt's main c/o was and continues [...] x1 Spinal mg nosis of lumbar region 97089041 M48.062 With chronic back pain. hx of oxycodone 10 mg QID at baseline (PATIENT SCHEDULER checked in [facility] home dose).cont PT/OT for strengthen ing, balance, gait training, safety and function.C ontinue fall precaution s.Monitor for safety.Mon itor pain controlCel ebrex on hold. Diabetes mellitus 803531 09 E11.9 BS 102-182 stable, [facility] HgA1C was 7.9 in 11/2023.[place] 1.5 weekly, tresiba 35 U qd, metformin 500 mg BID, januvia 25 mg qd, and SSIMonitor fingerstic ks TID and HgA1C as outpt. Essential hypertension 32535066 I10 bp stable 126/69 todayConti nue meds as above and amlodipine 2.5 mg qd.Monitor BP and labsDaily BPs ordered. Chronic ki dney disease stage 2 290915174 N18.2 At baseline.C ontinue to avoid nephrotoxi c meds as able.Monit or labs.Renal consult prn. Hypercholesterolemia 136 61958 E78.2 Continueat orvastatin 20 mg qd, fenofibrat e 145 mg qd, vascepa 2 g BID, and ASA 81 mg qd.Monitor labs as outpt. Depressive disorder 3548 9007 F32.89 In hx.On no meds.Monit or mood.Psych consult prn. Benign pro static hyperplasia without outflow obstruction 983912268 N40.0 In hx, with some issues with retention at times.Cont inuetamsul osin 0.4 mg qd. [id number] Sonja Gibbs NP [address] [place] [address] 05/27/2024 13:47:02 05/28/2024 10:07:06 Pain in right arm 021894218 M79.601 Denies trauma or injury. feels it is improving. refuses additional meds for pain todayx rays and venous US to right arm negative for acute findingsOx ycodone for pain.physi atry rec tyl 1000 mg po tid and lidocaine patch which is helpingcyc lobenzapri ne to bid todayMonit or closely. Tinea pedis 4107921 B35. 3 improvingc lotrimazol e 1 % cream bid x 10 days to completemo nitor Chronic di astolic heart failure 845703837 I50.32 Pt's main c/o was and continues [...] above Spinal mg nosis of lumbar region 23994299 M48.062 With chronic back pain. hx of oxycodone 10 mg QID at baseline, will cont(PATIENT SCHEDULER checked in [facility] home dose).cont PT/OT for strengthen ing, balance, gait training, safety and function.C ontinue fall precaution s.Monitor for safety.Mon itor pain controlCel ebrex remains on hold. Diabetes mellitus 281994 09 E11.9 BS 100s-occ 200s stable, [facility] outptLast HgA1C was 7.9 in 11/2023.Con [place] 1.5 weekly, tresiba 35 U qd, metformin 500 mg BID, januvia 25 mg qd, and SSIMonitor fingerstic ks TID and HgA1C as outpt. Essential hypertension 51387451 I10 bp stableCont inue meds as above and amlodipine 2.5 mg qd.Monitor BP and labs Chronic ki dney disease stage 2 242913997 N18.2 At baseline.C ontinue to avoid nephrotoxi c meds as able.Monit or labs.Renal consult prn. Hypercholesterolemia 136 55394 E78.2 Continueat orvastatin 20 mg qd, fenofibrat e 145 mg qd, vascepa 2 g BID, and ASA 81 mg qd.Monitor labs as outpt. Depressive disorder 3548 9007 F32.89 a little down today, wishes his progress was futher, but reports okayOn no meds.Monit or mood.Psych consult prn. Benign pro static hyperplasia without outflow obstruction 155689809 N40.0 In hx, with some issues with retention at times.Cont inuetamsul osin 0.4 mg qd. Asthenia 42868550 R53.1 remains with weakness to legs and armsPT/OT eval and treatmonit or [id number] Sonja Gibbs NP [facility] [address] 05/31/2024 10:47:07 06/02/2024 08:35:29 Pain in right arm 399898933 M79.601 Denies trauma or injury. feels it is improving. refuses additional meds for pain today but requests the oxycodone 10 mg scheduled instead of prnx rays and venous US to right arm negative for acute [id number] /25 sched Oxycodone 10 mg po q 6 hours and dc prn doses for pain.physi atry rec tyl 1000 mg po tid and lidocaine patch which is helpingcyc lobenzapri ne bidMRI sched for 06/01 of back and hoping to get more info on status and diagnosisM onitor closely. Asthenia 70787292 R53.1 remains with weakness to legs and armsPT/OT eval and treatmonit or Depressive disorder 3546 9007 F32.89 a little down today, wishes his progress was futher, but reports okayOn no meds.Monit or mood.Psych consult prn. Chronic di astolic heart failure 226304643 I50.32 Pt's main c/o was and continues [...] stable Spinal mg nosis of lumbar region 44013581 M48.062 With chronic back pain. hx of oxycodone 10 mg QID at baseline, will cont(PATIENT SCHEDULER checked in [facility] home dose). MRI sched for 06/01 of back and hoping to get more info on status and diagnosis contPT/OT for strengthen ing, balance, gait training, safety and function.C ontinue fall precaution s.Monitor for safety.Mon itor pain controlCel ebrex remains on hold. Diabetes mellitus 123654 09 E11.9 BS 100s-occ 200s stable, [facility] outptLast HgA1C was 7.9 in 11/2023.Con [place] 1.5 weekly, tresiba 35 U qd, metformin 500 mg BID, januvia 25 mg qd, and SSIMonitor fingerstic ks TID and HgA1C as outpt. Essential hypertension 99168138 I10 bp stableCont inue meds as above and amlodipine 2.5 mg qd.Monitor BP and labs Chronic ki dney disease stage 2 597371455 N18.2 At baseline.C ontinue to avoid nephrotoxi c meds as able.Monit or labs.Renal consult prn. [id number] Sonja Gibbs, DIAMOND [facility] [address] [address] 06/17/2024 08:35:00 06/18/2024 14:22:00 Spinal stenosis of lumbar region 55633750 M48.062 With chronic back pain. hx of [...] His pcp Dr Jacinto referred him to [facility] with appt 07/29/24 [...] remains on hold. Pain in right arm 888556 004 M79.601 Denies trauma or injury. feels it is improving. has decreased rom and lymphedema for some time nowcontphy siatry prn consultedc onttyl 1000 mg po tid and lidocaine patch which is helpingsch ed Oxycodone 10 mg po q 6 hours and dc prn doses for pain.cyclo benzaprine bidMRI sched for 06/01 of back results pending. nsg obtainingM onitor closely. Asthenia 27858717 R53.1 remains with weakness to left leg and right armPT/OT eval and treat prn, off regular therapymon itor Osteoarthr itis of knee 847643413 M17.12 Z96.652 LTKR originally done on 02/11remains with decreased strength and rom to left knee/leg, barrington lift at this timeoxycod one 10 mg at 6am, 5 mg po at 2pm and 8 pmContinue celecoxib 200 mg BIDAPAP 650 mg TID and q 4 hrs prn (NTE 3000 mg/d),Cont inue fall precaution s.Monitor for safety.F/U with ortho on planned soon, nsg to dr ambika padillau/s of bilateral lower ext today on 12monit or Nausea and vomiting 1693 2000 R11.2 likely related to constipati onsee belowzofra n 4 mg po q 6 hours prn n/v x 30 days Constipation 00062762 K5 9.09 unclear why bowel meds decreased recently, now with 6 days of constipati onmiralax 17 gms prn qd, titrate as neededdocu sate 100 mg daily06/17 MOM [facility] and give bisacodyl supp if no results in a few hoursMonit or bowel function outpt with [facility] pcp [id number] MARIE TORRES NP [facility] [address] 06/22/2024 12:27:29 06/23/2024 09:31:59 Gastroesophageal reflux disease without esophagitis 986374734 K21.9 Using TUMS frequently for GERD/GI sx.Start pepcid 20 mg bidMonitor sx.If remain problemati c, consider trial of PPI [id number] Sonja Gibbs NP [facility] [address] [address] 06/23/2024 13:31:14 06/24/2024 12:10:49 Asthenia 90355401 R53.1 remains with weakness to left leg and right armPT/OT eval and treat prn, off regular therapymon itor Constipation 85885855 K5 9.09 unclear why bowel meds decreased recently, now with 2 days of constipati on and continues with this every couple of days give mom 30 cc and bisacodyl 10 pr supp nowcont miralax 17 gms prn daily(sche duled)cydney a plus 2 tabs dailydc docusateMo nitor bowel function Spinal mg nosis of lumbar region 88259574 M48.062 With chronic back pain. hx of [...] Apple 06/24 for right shoulder painalso 07/29/24 [facility] at 1 pm. contPT/OT for strengthen ing, balance, gait training, safety and function prnremains barrington lift at this timeContin ue fall precaution s.Monitor for safety.Mon itor pain controlCel ebrex remains on hold. Pain in right arm 450277 004 M79.601 Denies trauma or injury. feels it is improving. has decreased rom and lymphedema for some time nowcontphy siatry prn consultedc onttyl 1000 mg po tid and lidocaine patch which is helpingsch eduled Oxycodone 10 mg po q 6 hours and dc prn doses for pain.cyclo benzaprine bidMonitor closely.se e above for management Osteoarthr itis of knee 188104397 M17.12 Z96.652 LTKR originally done on 02/11remains with decreased strength and rom to left knee/leg, barrington lift at this timeoxycod one 10 mg at 6am, 5 mg po at 2pm and 8 pmContinue celecoxib 200 mg BIDAPAP 650 mg TID and q 4 hrs prn (NTE 3000 mg/d),Cont inue fall precaution s.Monitor for safety.F/U with ortho on planned soon, nsg to dr ambika padillau/s of bilateral lower ext today on 06/17monit or Chronic di astolic heart failure 527364618 I50.32 Pt says he never had any [...] fluid status, wts and labs. Diabetes mellitus 996123 09 E11.9 Last HgA1C was 7.9 in 11/2023.Fol low[place] endocrine [place] [facility]Contin uetrulicit y 1.5 weekly, tresiba 35 U qd, metformin 500 mg BID, januvia 25 mg qd, and SSIMonitor fingerstic ks TID and HgA1C as outpt. Essential hypertension 02192960 I10 stable 133/82Cont inue meds as above and amlodipine 2.5 mg qd.Monitor BP and labsDaily BPs ordered. Depressive disorder 3548 9007 F32.89 In hx.On no meds.Monit or mood.Psych consult prn. Benign pro static hyperplasia without outflow obstruction 943376766 N40.0 In hx, with some issues with retention at times.Cont inuetamsul osin 0.4 mg qd. [id number] Sonja Gibbs NP [address] [address] 06/25/2024 10:45:21 06/28/2024 14:12:37 Asthenia 63438640 R53.1 remains with weakness to left leg and right arm06/25 right arm and left knee brace on in am and off in pm per dr anderson's ordersPT/O T eval and treat prn, off regular therapymon itor Spinal mg nosis of lumbar region 63663904 M48.062 With chronic back pain. hx of [...] and off in pmfu after MRI 07/29/24 [facility] at 1 pm sched from outside provider contPT/OT for strengthen ing, balance, gait training, safety and function prnremains barrington lift at this timeContin ue fall precaution s.Monitor for safety.Margareth mccullough pain controlCel ebrex remains on hold. Pain in right arm 378391 004 M79.601 Denies trauma or injury. feels [...] above for management Osteoarthr itis of knee 157201336 M17.12 Z96.652 LTKR originally done on 02/11remains [...] ext today on 06/17monit or Diabetes mellitus 506710 09 E11.9 Last HgA1C was 7.9 in 11/2023.Fol lowed by endocrine at [facility].with BS of 58 on 06/25 and similar on 06/23, remains asymptomat icContinue trulicity 1.5 weekly, metformin 500 mg BID, januvia 25 mg qd, and SSI06/25 decrease (degludec) tresiba 30 U qd to 26 unitsMonit or fingerstic ks TID and HgA1C as outpt. [id number] MARIE TORRES NP [address] [address] 07/01/2024 11:24:41 07/02/2024 11:53:48 Constipation 87086118 K59.09 Documented BM 06/24, 06/28Pt. states no BM x 6 days.Given MOM and supp last night, fleets this am with poor results so far.Curren tly no abd. pain, no N/V.BS hypoactive . Plan -KUB todayMag citrate 1/2 bottle this afternoon if no results from fleets, repeat 1/2 bottle tomorrow if still with poor results.En courage fluids, dietary fiber.Domingo selby prn miralax to scheduled dailyTo ER if condition worsens [id number] Sonja Gibbs NP [facility] [address] [address] 07/14/2024 13:30:49 07/16/2024 10:19:43 Diabetes mellitus 56541994 E11.9 Last HgA1C was 7.9 in 11/2023.Fol lowed by endocrine at [facility].with BS of 44 on 07/15 and similar in past, remains asymptomat icContinue trulicity 1.5 weekly, metformin 500 mg BID, januvia 25 mg qd, and SSI1/8 decrease (degludec) tresiba 26 U qd to 20 unitsMonit or fingerstic ks TID and HgA1C as outpt.of note was on 35 units of insulin in recent past Asthenia 60998684 R53.1 remains with weakness to left leg and right arm12/20 right arm and left knee brace on in am and off in pm per dr anderson's ordersPT/O T eval and treat prn, off regular therapymon itor [id number] Sonja Gibbs NP [facility] [address] [address] 07/22/2024 14:17:32 07/23/2024 15:07:54 Constipation 64755283 K59.09 with regular bm per patient todayCurre ntly no abd. pain, no N/V.BS a9Fevpuaok e fluids, dietary fiber.cont senna plus 2 tabs qdmiralax dailyhouse bowel protocol prn Diabetes mellitus 744778 09 E11.9 Last HgA1C was 7.9 in 11/2023.Fol lowed by endocrine [place] [facility] with multiple low BS in amContinue trulicity 1.5 weeklymetf ormin 500 mg BIDanuvia 25 mg qd, and SSI(deglud ec)tresiba 20 unitsMonit or fingerstic ks TID and HgA1C as outpt.(of note was on 35 units of insulin in recent past) Asthenia 24020940 R53.1 remains with weakness to left leg and right arm, and today with right leg weaknessri ght arm and left knee brace on in am and off in pm per dr anderson's ordersPT/O T eval and treat prn, off regular therapymargareth mccullough Spinal mg nosis of lumbar region 05423167 M48.062 With chronic back pain. hx of [...] off in pmfu after MRI sched 5 [facility] at 1 pm sched from outside providerco ntPT/OT for strengthen ing, balance, gait training, safety and function prnremains barrington lift at this timeContin ue fall precaution s.Monitor for safety.Margareth mccullough pain controlCel ebrex remains on hold. Pain in right arm 846943 004 M79.601 Denies trauma or injury. feels [...] above for management Osteoarthr itis of knee 394151407 M17.12 Z96.652 LTKR originally done on 02/11remains [...] concernsmo nitor Chronic di astolic heart failure 820599684 I50.32 per hosp report of CHF.he never [...] fluid status, wts and labs. Essential hypertension 25798720 I10 stableCont inue meds as above and amlodipine 2.5 mg qd.Monitor BP and labsDaily BPs ordered. Depressive disorder 3548 9007 F32.89 In hx.On no meds.Monit or mood.Psych consult prn. Benign pro static hyperplasia without outflow obstruction 635932444 N40.0 In hx, with some issues with retention at times.Cont inuetamsul osin 0.4 mg qd. Gastroesop hageal reflux disease without esophagitis 241590846 K21.9 Using TUMS frequently for GERD/GI sx. resolvingc ontpepcid 20 mg bidMonitor sx.If remain problemati c, consider trial of PPI Nausea and vomiting 1692 1999 R11.2 resolvedse e belowzofra n 4 mg po q 6 hours prn n/v x 30 days Chronic ki dney disease stage 2 098682186 N18.2 At baseline.C ontinue to avoid nephrotoxi c meds as able.Monit or labs.Renal consult prn. Hypercholesterolemia 136 87860 E78.2 Continueat orvastatin 20 mg qdfenofibr ate 145 mg qdvascepa 2 g BID,ASA 81 mg qd.Monitor labs as outpt. [id number] Sonja Gibbs NP [address] [address] 07/30/2024 08:03:45 08/03/2024 12:50:06 Spinal stenosis of lumbar region 89051995 M48.062 With chronic back pain and weakness [...] in pmfu after cervical MRI sched 07/3107/29/24 [facility] with rec:neuros urgery consult with Dr Serna 07/30 referral to [facility] ordered as recommende d, has MRI today. contPT/OT prn, currently not working with himMaistorPlus at this timeContin ue fall precaution s.Monitor for safety.Mon itor pain controlCel ebrex remains on hold. Asthenia 80399873 R53.1 remains with weakness to left leg and right arm, and today with right leg weaknessri ght arm sling and left knee brace on in am and off in pm per dr anderson's ordersPT/O T eval and treat prn, off regular therapymon itor Pain in right arm 331897 004 M79.601 Denies trauma or injury. feels [...] above for management Osteoarthr itis of knee 937037969 M17.12 Z96.652 LTKR originally done on 02/11remains [...] am and off in pm per dr andesron's ordersu/s of bilateral lower ext neg for acute concernsmo nitor [id number] Sonja Gibbs NP [facility] [address] [address] 08/04/2024 09:05:47 08/06/2024 09:42:06 Spinal stenosis of lumbar region 76672779 M48.062 With chronic back pain and weakness [...] [place] [facility] [place]3 07/29/24 [facility] with rec:neuros urgery [...] of c3 to the superior endplate of c5.[facility] [place] referral:rich rios was rec for minimally invasive spine [place] [facility] [place] 08/09 contPT/OT prn, currently not working with [employer] at this timeContin ue fall precaution s.Monitor for safety.Mon itor pain control see belowCeleb sandip remains on hold. Asthenia 35599122 R53.1 remains with weakness to left leg and right arm, and today with right leg weaknessri ght arm sling and left knee brace on in am and off in pm per dr anderson's ordersPT/O T eval and treat prn, off regular therapymon itor Pain in right arm 711094 004 M79.601 Denies trauma or injury. feels [...] above for management Osteoarthr itis of knee [id number] M17.12 Z96.652 LTKR originally done on 02/11remains [...] neg for acute concernsmo nitor Diabetes mellitus 855165 09 E11.9 Last HgA1C was 7.9 in 11/2023.[place]ol [place] [facility] [place] BS in am of 54, recheck BS came upContinue januvia 25 mg qdSSItruli city 1.5 weekly08/04 increase metformin 500 mg BID to 1000 mg po bid08/04 dc tresiba 20 units qhs for low BSMonitor fingerstic ks TID and HgA1C as outpt.(of note was on 35 units of insulin in recent past) Chronic pain 19879276 G8 9.29 followed by pain management here08/04 start gabapentin 100 mg po bidContinu eoxycodone 10 mg qid for painceleco xib 200 mg BIDAPAP 650 mg TID and q 4 hrs prn (NTE 3000 mg/d),Cont inue fall precaution s.Monitor for safety. Pain of left eye 8937887 001 72420 H57.12 reports left eye pain related to dropper touching his eye last nightno injuries or abnormalit y of eye notedwarm compress given at visit for comfort.mo nitor [id number] Sonja Gibbs NP [facility] [place] [address] 08/09/2024 14:58:20 08/10/2024 11:35:43 Diabetes mellitus 24410472 E11.9 Last HgA1C was 7.9 in 11/2023.Fol lowed by endocrine [place] [facility] [place] multiple low BS in am of 47, recheck BS came up to 111Continu ejanuvia 25 mg qdSSImetfo rmin 1000 mg po bid2/3 dc trulicity 1.5 weekly(not e tresiba recently dc'd)Monit or fingerstic ks TID and HgA1C as outpt.(of note was on 35 units of long acting insulin in recent past) Chronic pain 63378626 G8 9.29 followed by pain management herecontga bapentin 100 mg po bidoxycodo ne 10 mg qid for painceleco xib 200 mg BIDAPAP 650 mg TID and q 4 hrs prn (NTE 3000 mg/d),Cont inue fall precaution s.Monitor for safety. Spinal mg nosis of lumbar region 41509470 M48.062 With chronic back pain and weakness [...] rec for [place] [facility] [place] [facility] with rec:neuros urgery [...] of c3 to the superior endplate of c5.[facility] [place] pt referral:rich rios was rec for minimally invasive spine center [place] [facility] [place] 08/09 08/04 referral to [facility] ordered [...] see belowCeleb sandip remains on hold. Asthenia [id number] R53.1 remains with weakness to left leg and right arm, and today with right leg weaknessri ght arm sling and left knee brace on in am and off in pm per dr anderson's ordersPT/O T eval and treat prn, off regular therapymon itor Pain in right arm 020060 004 M79.601 Denies trauma or injury. feels [...] as ordered by ambika, as aboveMonit or closely. e above for management Osteoarthr itis of knee [id number] M17.12 Z96.652 LTKR originally done on 02/11remains [...] lower ext neg for acute concernsmo nitor [id number] Sonja Gibbs NP [address] [address] 08/20/2024 10:30:03 08/23/2024 10:20:02 Chronic pain 23920692 G89.29 followed by pain management herecontga bapentin 100 mg po bidoxycodo ne 10 mg qid for painceleco xib 200 mg BIDAPAP 650 mg TID and q 4 hrs prn (NTE 3000 mg/d),Cont inue fall precaution s.Monitor for safety. Spinal mg nosis of lumbar region 18024258 M48.062 With chronic back pain and weakness [...] rec for minimally invasive spine [place] [facility] [place] 2/3 07/29/24 [facility] with rec:neuros urgery [...] of c3 to the superior endplate of c5.[facility] [place] referral:h gabriel was rec for minimally invasive spine center [place] [facility] [place] 08/09 08/04 referral to [facility] ordered as recommende d with MRI results back today 08/04 from 07/30 08/09 awaiting consult from spine center08/11 fu appoint at minimally invasive spine center to discuss options08/07 Dr Aleisha padilla (neurosurg [place]) dc'/ [facility] [place] with Dr. Isabel did a [...] see belowCeleb sandip remains on hold. Asthenia [id number] R53.1 remains with weakness to left leg and right arm, and today with right leg weaknessri ght arm sling and left knee brace on in am and off in pm per dr anderson's ordersPT/O T eval and treat prn, off regular therapymon itor [id number] Sonja Gibbs NP [address] [address] 08/23/2024 09:57:33 08/24/2024 15:31:28 Spinal stenosis of lumbar region 59488204 M48.062 With chronic back pain and weakness [...] rec for minimally invasive [place] [facility] [place]24 [facility] with rec:neuros urgery [...] of c3 to the superior endplate of c5.[facility] [place] pt referral:rich rios was rec for minimally invasive spine center [place] [facility] [place] 08/09 08/04 referral to [facility] ordered as recommende d with MRI results back today 08/04 from 07/30 08/09 awaiting consult from spine center08/11 fu appoint at minimally invasive spine center to discuss options08/07 Dr Aleisha padilla (neurosurg [place]) dc' [facility] [place] with Dr. Isabel did a [...] belowCeleb sandip remains on hold. Chronic pain 08150278 G8 9.29 followed by pain management herecontga bapentin 100 mg po bidoxycodo ne 10 mg qid for painceleco xib 200 mg BIDAPAP 650 mg TID and q 4 hrs prn (NTE 3000 mg/d),Cont inue fall precaution s.Monitor for safety. Difficulty swallowing 28 7063071 R13.10 08/23 startpredn isone 40 mg po [...] and follow labs and for diff swallowing [id number] Sonja Gibbs NP [facility] [address] [address] 08/26/2024 10:35:53 08/27/2024 16:16:23 Spinal stenosis of lumbar region 37603343 M48.062 With chronic back pain and weakness [...] rec for minimally invasive spine center [place] [facility] [place] 2/07/29/24 [facility] with rec:neuros urgery [...] of c3 to the superior endplate of c5.[facility] [place] pt referral:rich rios was rec for minimally invasive spine center [place] [facility] [place] 08/09 08/04 referral to [facility] ordered as recommende d with MRI results back today 08/04 from 07/30 08/09 awaiting consult from spine center08/11 fu appoint at minimally invasive spine center to discuss options08/[address] Aleisha padilla (neurosurg [place]) dc' [facility] [place] with Dr. Isabel did a [...] steriod and sent back on soft diet 08/24 seen by vascular and DVT ruled out per note 08/26 some improvemen t with meds see belowcontP T/OT prn, currently not working with himremains barrington lift at this timeContin ue fall precaution s.Monitor for safety.Mon itor pain control see belowCeleb sandip remains on hold.cbc cmp and lipid profile for 08/27 Difficulty swallowing 28 2655384 R13.10 08/26 contpredni sone 40 mg po daily x 5 days total, may crush and put in chocolate sauce to mask tastedieti destin consult for easy to swallow foodsgluce rna tid with meals until able to tolerate foodsliqui d and puree diet until able to louise, and advancespe ech consult for diff swallowing asa resumed on 08/26 todaymonit or closely and follow labs and for diff swallowing (last done on 08/20, cbc cmp and lipid profile ordered for 08/27he is not able to louise vescepa as it is too big Chronic pain 95962612 G8 9.29 followed by pain management herecontga bapentin 100 mg po bidoxycodo ne 10 mg qid for painceleco xib 200 mg BIDAPAP 650 mg TID and q 4 hrs prn (NTE 3000 mg/d),Cont inue fall precaution s.Monitor for safety. Hypercholesterolemia 136 47400 E78.2 Continueat orvastatin 20 mg qdfenofibr ate 145 mg qdvascepa 2 g BID,ASA 81 mg qd.Monitor labs as outpt.lipi d profile to assess need for all meds above 08/27 [id number] Sonja Gibbs NP [address] [address] 09/09/2024 12:10:04 09/14/2024 08:43:09 Spinal stenosis of lumbar region 43564945 M48.062 With chronic back pain and weakness [...] rec for minimally invasive spine center [place] [facility] [place] 3 07/29/24 [facility] with rec:neuros urgery [...] of c3 to the superior endplate of c5.[facility] [place] referral:rich rios was rec for minimally invasive spine center [place] [facility] [place] 08/09 08/04 referral to [facility] ordered as recommende d with MRI results back today 08/04 from 07/30 08/09 awaiting consult from spine center2/ fu appoint at minimally invasive spine center to discuss options08/[address] Aleisha padilla (neurosurg [place]) dc'/ [facility] [place] with Dr. Isabel did a [...] steriod and sent back on soft diet 08/24 seen by vascular and DVT ruled out per note 08/26 some improvemen t with meds see below 09/09 followed up with [facility] [place] [facility], cont with pt/ot and monitor, ? fu in 6 weeks contremain s barrington lift at this timeContin ue fall precaution s.Monitor for safety.Mon itor pain control see belowCeleb sandip remains on hold. Difficulty swallowing 28 3756438 R13.10 09/09 contcomple christin prednisone hospitalist consult for easy to swallow foodsgluce rna tid with meals until able to tolerate foodsliqui d and puree diet until able to louise, and advancespe ech consult for diff swallowing asa resumed on 08/26monito r closely and follow labs and for diff swallowing he is not able to louise vescepa as it is too big Chronic pain 68160959 G8 9.29 followed by pain management herecontga bapentin 100 mg po bidoxycodo ne 10 mg qid for painceleco xib 200 mg BIDAPAP 650 mg TID and q 4 hrs prn (NTE 3000 mg/d),Cont inue fall precaution s.Monitor for safety. [id number] Prince Le MD [facility] of [address] [address] 09/11/2024 11:45:11 09/14/2024 09:51:44 Difficulty swallowing 319543228 R13.12 speech to followmoni tor aspiration risk and need to further adjust diet Spinal mg nosis in cervical region 06146664 M48.02 underwent anterior cervical discectomy and fusion with good effectmoni tor sxupdate surgery with concerns Essential hypertension 79459862 I10 hydralazin e 25 mg tidlasix 40 mg qdnorvasc 2.5 mg qdbenazapr il 40 mg qdmonitor bp and need to titrate [id number] Sonja Gibbs NP [facility] [address] 09/22/2024 08:30:03 09/24/2024 14:43:14 Spinal stenosis in cervical region 32992947 M48.02 underwent anterior cervical discectomy and fusion with good effect with increased rom to right shoulder and remains with bilateral lower ext weakness, but reports improved feelingmon itor sxpt ot eval and treatupdat e surgery with concerns Difficulty swallowing 28 8340437 R13.12 seems to be improving. speech to followmoni tor aspiration risk and need to further adjust diet Acute left otitis media 899113305 H66.92 pt is allergic to pcn3/19sta rt levaquin 750 mg po qd x 10 days with probioticm onitor Persistent cough 7677731 02 R05.3 pt with persistant resp cough for a few weeks and now with thick green sputumwill get cxr to ro pnaalready on abx above as ordered for otitis media, but may help with this alsomonito r vitals, temp and resp statusrobi tussin prnmucinex 600 mg po bid x 10 days [id number] Sonja Gibbs NP [facility] [address] [address] 09/30/2024 09:47:39 10/04/2024 11:25:27 Persistent cough 779676930 R05.3 resolveddc robitussin prndc mucinex 600 mg po bid x 10 days Difficulty swallowing 28 9534673 R13.12 resolvedmo nitor aspiration risk and need to further adjust diet Acute left otitis media 342180391 H66.92 pt is allergic to pcncont levaquin 750 mg po qd x 10 days with probioticm onitor Spinal mg nosis in cervical region 72358490 M48.02 underwent anterior cervical discectomy and fusion with good effect with increased rom to right shoulder and remains with bilateral lower ext weakness, but reports improved feelingmon itor sxpt ot eval and treatupdat e surgery with concerns Essential hypertension 54302101 I10 bp on low side todaycont hydralazin e 25 mg tiddc norvasc 2.5 mg qdcont benazapril 40 mg qddecrease lasix to 20 mg po qdmonitor bp and need to titrate Spinal mg nosis of lumbar region 85787027 M48.062 With chronic back pain and weakness [...] rec for minimally invasive spine [place] [facility] [place] [facility] with rec:neuros urgery [...] of c3 to the superior endplate of c5.[facility] [place] pt referral:rich rios was rec for minimally invasive spine center [place] [facility] [place] 08/09 08/04 referral to [facility] ordered as mateusz german with MRI results back today 08/04 from 07/30 08/09 awaiting consult from spine center08/11 fu appoint at minimally invasive spine center to discuss options08/07 Dr Aleisha padilla (neurosurg [place]) dc'/ [facility] [place] with Dr. Isabel did a [...] steriod and sent back on soft diet 08/24 seen by vascular and DVT ruled out per note 08/26 some improvemen t with meds see below 09/09 followed up with [facility] [place] [facility], cont with pt/ot and monitor, ? fu in 6 weeks 09/30 overall improving contremain s barrington lift at this timeContin ue fall precaution s.Monitor for safety.Mon itor pain control see belowCeleb sandip remains on hold. Chronic pain 62535444 G8 9.29 followed by pain management here and pt requests to dc tylcont3/2 7 increase gabapentin from 100 mg po bid to 200mg po bid3.27 dc APAP 650 mg TIDcontoxy codone 10 mg qid for paincont tyl 650 q 4 hrs prncont cyclobenza tutu 1 tab bidContinu e fall precaution s.Monitor for safety. Hypercholesterolemia 136 30423 E78.2 pt requests to dc vascepa, will cont other medsContin ueatorvast atin 20 mg qdfenofibr ate 145 mg qdASA 81 mg qd.Monitor labs as outpt.lipi d profile on 11/10/24 to eval Benign pro static hyperplasia without outflow obstruction [id number] N40.0 In hx, with some issues with retention at times however none lately and will trial dc todaydc tamsulosin 0.4 mg qd. [id number] Sonja Gibbs NP [facility] [address] [place] [address] 10/06/2024 16:43:50 10/08/2024 14:42:40 Spinal stenosis in cervical region 05201612 M48.02 underwent anterior cervical discectomy and fusion with good effect with increased rom to right shoulder and remains with bilateral lower ext weakness, but reports improved feelingmon itor sxpt ot eval and treatupdat e surgery with concerns Essential hypertension 65670865 I10 bp on low side today 84/50 and 90/64uncle ar why so low with recent amlodipine dc'd and reduction of lasix and overall feeling well 4/2 change hydralazin e 25 mg tid to prn, hold sched dose x 3 and reeval for restarthol d benazapril 40 mg qd for 2 dayshold lasix to 20 mg po qd x 3 days , also recently cut in halfpush fluidscbc and bmp in ammonitor bp and need to titrate Spinal mg nosis of lumbar region 80776878 M48.062 With chronic back pain and weakness [...] rec for minimally invasive spine center [place] [facility] [place] 23 07/29/24 [facility] with rec:neuros urgery [...] of c3 to the superior endplate of c5.[facility] [place] pt referral:rich gabriel was rec for minimally invasive spine center [place] [facility] [place] 08/09 08/04 referral to [facility] ordered as recommende d with MRI results back today 08/04 from 07/30 08/09 awaiting consult from spine center2 fu appoint at minimally invasive spine center to discuss options08/07 Dr Aleisha padilla (neurosurg [place]) dc'/ [facility] [place] with Dr. Isabel did a [...] steriod and sent back on soft diet 08/24 seen by vascular and DVT ruled out per note 08/26 some improvemen t with meds see below 09/09 followed up with [facility] [place] [facility], cont with pt/ot and monitor, ? fu in 6 weeks 09/30 overall improving 4/2 cont above care contremain s barrington lift at this timeContin ue fall precaution s.Monitor for safety.Mon itor pain control see belowCeleb sandip remains on hold. Chronic pain 00563179 G8 9.29 followed by pain management contoxycod one 10 mg qid for paincont tyl 650 q 4 hrs prncont cyclobenza tutu 10mg 1 tab bidContinu e fall precaution s.Monitor for safety. [id number] Sonja Gibbs NP [address] [address] 10/07/2024 08:31:54 10/08/2024 14:57:59 Essential hypertension 88004517 I10 bp on low side x2 days today manualuncl ear why so low with recent amlodipine dc'd and reduction of lasix and overall feeling well 4/2change hydralazin e 25 mg tid to prn sbp > 140hold benazapril 40 mg qddc lasix to 20 mg po qdcbc and bmp in amencourag e po fluids >2 liters per day 4/3startur inalysis with c & scxr 2 viewhold flexeril for sbp <100ns @ 80cc/hr x 1 liter monitor bp and need to titrateSEE ADDENDUM BELOW Spinal mg nosis in cervical region 36167446 M48.02 underwent anterior cervical discectomy and fusion with good effect with increased rom to right shoulder and remains with bilateral lower ext weakness, but reports improved feelingmon itor sxpt ot eval and treatupdat e surgery with concerns Spinal mg nosis of lumbar region 16830200 M48.062 With chronic back pain and weakness [...] rec for minimally invasive spine center [place] [facility] [place] 08/0907/29/24 [facility] with rec:neuros urgery [...] of c3 to the superior endplate of c5.[facility] [place] pt referral:rich rios was rec for minimally invasive spine center [place] [facility] [place] 08/09 08/04 referral to [facility] ordered as mateusz d with MRI results back today 08/04 from 07/30 08/09 awaiting consult from spine center2/5 fu appoint at minimally invasive spine center to discuss options08/[address] Aleisha padilla (neurosurg [place]) dc'/13 [facility] [place] with Dr. Isabel did a [...] steriod and sent back on soft diet 08/24 seen by vascular and DVT ruled out per note 08/26 some improvemen t with meds see below 09/09 followed up with [facility] [place] [facility], cont with pt/ot and monitor, ? fu in 6 weeks 09/30 overall improving 10/06 cont above care, with low bp see above contremain s barrington lift at this timeContin ue fall precaution s.Monitor for safety.Mon itor pain control see belowCeleb sandip remains on hold. Chronic pain 77109282 G8 9.29 followed by pain management contoxycod one 10 mg qid for paincont tyl 650 q 4 hrs prncont cyclobenza tutu 10mg 1 tab bid , hold for sbp <100Contin ue fall precaution s.Monitor for safety. Low blood pressure 42597 003 R03.1 see above without known sourceA DDEDUM SEND TO er FOR SEPSIS WITH UNKNOWN SOURCE OF INFECTION Health Concerns Section Related Observation LastModified by Organization Detai ls LastModified Time None Recorded Concern Status LastModified by Organization Details LastModified Time None Recorded Advance Directives Directive Y: FULL CODE no dialysis and okay to use nutrition-use hydration Payers Encounter Date Sequence Insurance Name Policy Number Policy Richardson Covered Member ID Richardson Member ID Guarantor Name 09/11/2024 1 [facility] - DOS ON OR AFTER 2022 - MEDICARE [place]/ADV ANTAGE - PPO) Carlos Cabrera [id number] Carlos Cabrera 09/22/2024 1 [facility] - DOS ON OR AFTER 2022 - [place]/ADV ANTAGE - PPO) Carlos Cabrera [id number] Carlos Cabrera 09/30/2024 1 [facility] - DOS ON OR AFTER 2022 - [place]/ADV ANTAGE - PPO) Carlos Cabrera [id number] Carlos Cabrera 10/06/2024 1 [facility] - DOS ON OR AFTER 2022 - [place]/ADV ANTAGE - PPO) Carlos Cabrera [id number] Carlos Cabrera 10/07/2024 1 [facility] - DOS ON OR AFTER 2022 - [place]/ADV ANTAGE - PPO) Carlos Cabrera [id number] Carlos Cabrera Notes Date Note Type Note Provider Name and Address Organization Details Recorded Time 09/11/2024 text/html Patient is a 68 yo male resident due for routine rounding visit. Patient recently underwent anterior cervical discectomy and fusion with good effect. PMH significant for htn, dm, chf Prince Le MD [address] [facility], [address], [place], [address], [facility] [employer] 09/11/2024 11:52:10 09/22/2024 text/html Pt is seen for a n acute visit. Carlos is a 68 yo male seen sp spinal surgery on 08/19/[address] Isabel for anterior cervical discectomy and fusion with complication of difficulty swallowing difficulty sp surgery due to inflammation. Since his surgery he reports increased range of motion to his right arm/shoulder and some feeling and movements to his legs, however remains very weak and not able to stand. He remains with spitting into basin since the neck surgery however now it is green and thick. He is tolerating a reg diet, chopped texture, and thin liquids and tolerating pills and meds. He complains of ear pain to the left ear with bulging and infection noted. Wax noted bilaterally. On exam, Carlos denies any fever, chills, or diff breathing but remains with complaint of left ear pain and green sputum. vitals stable. afebrile. Remains with bilateral lower leg weakness and right arm decreased rom. States pain is tolerable. Reports swallowing is better in general. Sonja Gibbs NP [address] [facility], [address], [place], [address], [facility] 09/22/2024 10:55:29 09/30/2024 text/html Pt is seen for a n acute visit. Pt is a 68 yo male seen sp spinal surgery on 08/19/[address] Isabel for anterior cervical discectomy and fusion with complication of difficulty swallowing difficulty sp surgery due to inflammation. Since his surgery he reports increased range of motion to his right arm/shoulder and some feeling and movements to his legs, however remains very weak and not able to stand with barrington lift dependent. He is able to tolerated food and pills at baseline since surgery and feels he is getting better. He started on levaquin on 09/22/24 for ear infection which is resolving. A full medication review is done per request as he feels he is on too many medications today. Due to consultation will dc amlodipine, tamulosin, vescapsa, sched tyl, pepcid, robitussin, mucinex, and will decrease lasix from 40mg po qd to 20 mg po qd and increase gabapentin to 200 mg po bid. On exam, His ear pain to the left ear is resolving on levaquin, he states the ear still has a fluid feeling occasionally. He states he is no longer spitting up the green sputum and pain is more controlled 10/14 today. Lungs clear and no swelling to lower extremities today. Sonja Gibbs NP [address] [place] [address], [address], [place], [address], [facility] [employer] [facility] 09/30/2024 10:12:58 10/06/2024 text/html Pt is seen for a n acute visit. He is seen for low bp today per nursing. Otherwise pt states he feels okay but slightly tired. He states he is eating, drinking, and having regular bowel movements. He reports no increased pain to one area or abd pain. He denies chest pain, dizziness, shortness of breath, nausea, or vomiting.Nursing noted a bp of 82/50 this am. Fluids pushed and hydralazine held.BP repeated was 90/64 at 10:12bp done again this afternoon at 4:30 and now 84/50. Pulse 89, temp 97.6, and sat 98%ra. On exam, Carlos appears euvolemic and NAD. He is lying down. He is encouraged to drink lots of fluids and hydrate to help with bp. He is aware that if his bp doesn't come up he may need to go to ER. Meds adjusted accordingly. Sonja Gibbs NP [address] [facility], [address], [place], [address], [facility] [employer] 10/06/2024 18:02:57 10/07/2024 text/html Pt is seen for a n acute visit. Carlos is seen today for fu of his low bp. Manual recheck this am is 82/60. Hr 88, and rr 18, sat 96% ra. On exam, carlos is lying in bed in NAD. He states he feels fine and just a bit tired at times. No swelling to extremities, dysuria, frequency or burning with urination, cough, congestion, dizziness, nausea, vomiting, or diarhea, headache, chest pain, sob, or any other complaints. He was able to tolerate a good amount of breakfast and seems to be drinking good amounts of fluids per nursing and pt report. Yesterday bp was low and lasix, benazapril, and hydralazine stopped. Today will start a liter of NS, hold flexeril for sbp <100 and monitor closely. Will also get cxr and ua to rule out infectious source. Labs pending from this am. ADDENDUM13:3 7 on 10/07/24pt labs returned with critical wbc of 17.5 and bun 54/cr 2.44, neutrophils of 14.41 overall just started on NS and seems septic. With low bp will send out to ER for IV abx, imaging, and care. Pt aware of labs and plan and agreeable to go to ER. Overall remains fatigued and bp remains in 80s Sonja Gibbs NP [address] [facility], [address], [place], [address], [facility] 10/07/2024 13:39:06
== END 2024-10-20 13:20 | disposition home or self-care (01) ==
LOC: HO.HOSX 13:19
PROVIDERS: Visit Provider Physician Assistant
DX: Z13.89 Encounter for screening for other disorder (principal)

== ENCOUNTER 2024-10-22 11:13 | Outpatient (REF) | payer OTHER, SELFPAY ==
--- OUTSIDE RECORDS SUMMARY | 2024-10-22 13:00 | XMS_ITS | Encounter Summary ---
Author Organization [facility] Address [address] [place] [address] Care Team Providers Care Patient Navigator Name Role Phone Tram Álvarez MD Primary Care Provider [phone] Encounter Details Date Type Department Care Team (Late st Contact Info) Description 06/18/2024 Lab Requisition [facility] - Main Lab [address] [place] [address] Prince Le MD 38 [facility] [address] [place], [address] Nausea with vomiting, unspecified; Chronic kidney [...] LAB CHEMISTRY METHOD 06/18/2024 11:17 AM EST [facility] ([facility] LAB Potassium 4.6 3.5 - 5.5 [...] Resul t [facility] LAB [address] [place] [address], * (ABNORMAL) Complete blood count (06/18/2024 6:44 AM EST) WBC 8.4 4.8 - 10.8 K/[facility] LAB HEMETOLOGY METHOD 06/18/2024 10:46 AM [facility] LAB RBC 5.10 4.50 - 5.50 M/[facility] LAB HEMETOLOGY METHOD 06/18/2024 10:46 AM [facility] LAB Platelets 248 130 - 400 K/[facility] LAB HEMETOLOGY METHOD 06/18/2024 10:46 AM [facility] LAB MPV 12.7(H) 7.0 - 11.0 FL LAB HEMETOLOGY METHOD 06/18/2024 10:46 AM [facility] LAB NRBC 0.0 <1.0 % LAB HEMETOLOGY METHOD 06/18/2024 10:46 AM [facility] LAB NRBC Absolute 0.00 <0.10 K/[facility] LAB HEMETOLOGY METHOD 06/18/2024 10:46 AM [facility] LAB Blood Venous blood specimen / Unknown Venipuncture / Unknown 06/18/2024 6:44 AM EST 06/18/2024 9:17 AM EST us Prince Le MD LAB BLOOD ORDERABLES Final Resul t [facility] ([facility]) [facility] LAB [address] [place] [address], documented in this encounter Visit Diagnoses Diagnosis Nausea with vomiting, unspecified Chronic kidney disease, unspecified documented in this encounter Care Teams Patient Navigator Relationship Specialty Start Date End Date Tram Álvarez MD 2 [facility] , [address] Physician Associ D/B/A: [facility] JAS Duque PCP - General Internal Medicine 03/30/18 documented as of this encounter
--- OUTSIDE RECORDS SUMMARY | 2024-10-22 13:00 | XMS_ITS | Encounter Summary ---
Author Organization [facility] Address [address] [place] [address] Care Team Providers Care Doughnut Fryer Name Role Phone Tram Álvarez MD Primary Care Provider [phone] Encounter Details Date Type Department Care Team (Late st Contact Info) Description 07/16/2024 Lab Requisition [facility] - Main Lab [address] [place] [address] Prince Le MD 38 [facility] [address] [place], [address] Type 2 diabetes mellitus without complications [...] mg/dL LAB CHEMISTRY METHOD 07/16/2024 12:50 PM [facility] LAB Blood Venous blood specimen / Unknown Venipuncture / Unknown 07/16/2024 8:00 AM EST 07/16/2024 11:21 AM EST us Prince Le MD LAB BLOOD ORDERABLES Final Resul t [facility] LAB [address] [place] [address], [place] [phone] * (ABNORMAL) Comprehensive metabolic panel (07/16/2024 8:00 AM EST) Sodium 137 133 - 145 mmol/L LAB CHEMISTRY METHOD 07/16/2024 1:13 PM [facility] LAB Potassium 5.1 3.5 - 5.5 mmol/L LAB CHEMISTRY METHOD 07/16/2024 1:13 PM [facility] LAB Chloride 103 96 - 110 mmol/L LAB CHEMISTRY METHOD 07/16/2024 1:13 PM [facility] LAB CO2 27 21 - 32 mmol/L LAB CHEMISTRY METHOD 07/16/2024 1:13 PM [facility] LAB Anion Gap 7 3 - 11 LAB CHEMISTRY METHOD 07/16/2024 1:13 PM [facility] LAB Glucose 40(L) 70 - 100 mg/dL LAB CHEMISTRY METHOD 07/16/2024 1:13 PM [facility] LAB BUN 35(H) 5 - 25 mg/dL LAB CHEMISTRY METHOD 07/16/2024 1:13 PM [facility] LAB Creatinine 1.27 0.70 - 1.30 mg/dL LAB CHEMISTRY METHOD 07/16/2024 1:13 PM [facility] LAB eGFR 62 >=60 mL/min/1. 73m2 LAB CHEMISTRY METHOD 07/16/2024 1:13 PM [facility] LAB Comment:Calculation based on the??Chronic Kidney Disease Epidemiology Collaboration (CKD-EPI) equation refit??without adjustment for race. BUN/Creatinine Ratio 27.6 LAB CHEMISTRY METHOD 07/16/2024 1:13 PM [facility] LAB Calcium 9.0 8.5 - 10.5 mg/dL LAB CHEMISTRY METHOD 07/16/2024 1:13 PM [facility] LAB AST (SGOT) 18 10 - 42 unit/L LAB CHEMISTRY METHOD 07/16/2024 1:13 PM [facility] LAB ALT (SGPT) 19 10 - 60 unit/L LAB CHEMISTRY METHOD 07/16/2024 1:13 PM [facility] LAB Alkaline Phosphatase 62 42 - 121 unit/L LAB CHEMISTRY METHOD 07/16/2024 1:13 PM [facility] LAB Total Protein 6.7 6.0 - 8.0 g/dL LAB CHEMISTRY METHOD 07/16/2024 1:13 PM [facility] LAB Albumin 3.5 3.2 - 5.0 g/dL LAB CHEMISTRY METHOD 07/16/2024 1:13 PM [facility] LAB Total Bilirubin 0.4 0.0 - 1.4 mg/dL LAB CHEMISTRY METHOD 07/16/2024 1:13 PM [facility] LAB Blood Venous blood specimen / Unknown Venipuncture / Unknown 07/16/2024 8:00 AM EST 07/16/2024 11:21 AM EST us Prince Le MD LAB BLOOD ORDERABLES Final Resul t [facility] LAB [address] [place] [address], * (ABNORMAL) Complete blood count (07/16/2024 8:00 AM EST) WBC 10.9(H) 4.8 - 10.8 K/mcL LAB HEMETOLOGY METHOD 07/16/2024 11:53 AM EST [facility] LAB RBC 4.90 4.50 - 5.50 M/mcL LAB HEMETOLOGY METHOD 07/16/2024 11:53 AM [facility] LAB Hemoglobin 13.4(L) 13.5 - 17.5 g/dL LAB HEMETOLOGY METHOD 07/16/2024 11:53 AM [facility] LAB Hematocrit 41.6(L) 42.0 - 54.0 % LAB HEMETOLOGY METHOD 07/16/2024 11:53 AM [facility] LAB MCV 85.1 79.0 - 98.0 FL LAB HEMETOLOGY METHOD 07/16/2024 11:53 AM [facility] LAB MCH 27.4 27.0 - 32.0 pcg LAB HEMETOLOGY METHOD 07/16/2024 11:53 AM [facility] LAB MCHC 32.2 32.0 - 37.0 g/dL LAB HEMETOLOGY METHOD 07/16/2024 11:53 AM [facility] LAB RDW 18.3(H) 11.0 - 15.0 % LAB HEMETOLOGY METHOD 07/16/2024 11:53 AM [facility] LAB Platelets 413(H) 130 - 400 K/mcL LAB HEMETOLOGY METHOD 07/16/2024 11:53 AM [facility] LAB MPV 12.4(H) 7.0 - 11.0 FL LAB HEMETOLOGY METHOD 07/16/2024 11:53 AM [facility] LAB NRBC 0.0 <1.0 % LAB HEMETOLOGY METHOD 07/16/2024 11:53 AM [facility] LAB NRBC Absolute 0.00 <0.10 K/mcL LAB HEMETOLOGY METHOD 07/16/2024 11:53 AM [facility] LAB Blood Venous blood specimen / Unknown Venipuncture / Unknown 07/16/2024 8:00 AM EST 07/16/2024 11:21 AM EST us Prince Le MD LAB BLOOD ORDERABLES Final Resul t [facility] ([facility]) [facility] LAB [address] [place] [address], [place] [phone] documented in this encounter Visit Diagnoses Diagnosis Type 2 diabetes mellitus without complications (CMS/HCC V24, CMS/HCC V28) documented in this encounter Care Teams Doughnut Fryer Relationship Specialty Start Date End Date Tram Álvarez MD 2 [facility] , [address] [facility] Physician Associ D/B/A: [facility] JAS Duque PCP - General Internal Medicine 03/30/18 documented as of this encounter
--- OUTSIDE RECORDS SUMMARY | 2024-10-22 13:00 | XMS_ITS | Encounter Summary ---
Author Organization [facility] Address [address] [place] [address] Care Team Providers Care Carder Blankets Name Role Phone Tram Álvarez MD Primary Care Provider [phone] Encounter Details Date Type Department Care Team (Late st Contact Info) Description 05/14/[address] [facility] - Main Lab [address] [place] [address] Prince Le MD 38 [facility] [address] [place], [address] Essential (primary) hypertension Social History Tobacco [...] LAB CHEMISTRY METHOD 05/17/2024 10:43 AM EST [facility] LAB Potassium 4.5 3.5 - 5.5 mmol/L LAB CHEMISTRY METHOD 05/17/2024 10:43 AM EST [facility] LAB Chloride 110 96 - 110 mmol/L LAB CHEMISTRY METHOD 05/17/2024 10:43 AM [facility] LAB CO2 27 21 - 32 mmol/L LAB CHEMISTRY METHOD 05/17/2024 10:43 AM [facility] LAB Anion Gap 6 3 - 11 LAB CHEMISTRY METHOD 05/17/2024 10:43 AM [facility] LAB Glucose 99 70 - 100 mg/dL LAB CHEMISTRY METHOD 05/17/2024 10:43 AM [facility] LAB BUN 37(H) 5 - 25 mg/dL LAB CHEMISTRY METHOD 05/17/2024 10:43 AM [facility] LAB Creatinine 1.29 0.70 - 1.30 mg/dL LAB CHEMISTRY METHOD 05/17/2024 10:43 AM [facility] LAB eGFR 60 >=60 mL/min/1. 73m2 LAB CHEMISTRY METHOD 05/17/2024 10:43 AM [facility] LAB Comment:Calculation based on the??Chronic Kidney Disease Epidemiology Collaboration (CKD-EPI) equation refit??without adjustment for race. BUN/Creatinine Ratio 28.7 LAB CHEMISTRY METHOD 05/17/2024 10:43 AM [facility] LAB Calcium 9.3 8.5 - 10.5 mg/dL LAB CHEMISTRY METHOD 05/17/2024 10:43 AM [facility] LAB Blood Venous blood specimen / Unknown Venipuncture / Unknown 05/17/2024 6:41 AM EST 05/17/2024 9:49 AM EST us Prince Le MD LAB BLOOD ORDERABLES Final Resul t [facility] LAB [address] [place] [address], * (ABNORMAL) Complete blood count (05/17/2024 6:41 AM EST) WBC 9.0 4.8 - 10.8 K/mcL LAB HEMETOLOGY METHOD 05/17/2024 10:23 AM [facility] LAB RBC 5.50 4.50 - 5.50 M/mcL LAB HEMETOLOGY METHOD 05/17/2024 10:23 AM [facility] LAB Hemoglobin 15.0 13.5 - 17.5 g/dL LAB HEMETOLOGY METHOD 05/17/2024 10:23 AM [facility] LAB Hematocrit 48.3 42.0 - 54.0 % LAB HEMETOLOGY METHOD 05/17/2024 10:23 AM [facility] LAB MCV 88.0 79.0 - 98.0 FL LAB HEMETOLOGY METHOD 05/17/2024 10:23 AM [facility] LAB MCH 27.3 27.0 - 32.0 pcg LAB HEMETOLOGY METHOD 05/17/2024 10:23 AM [facility] LAB MCHC 31.1(L) 32.0 - 37.0 g/dL LAB HEMETOLOGY METHOD 05/17/2024 10:23 AM [facility] LAB RDW 16.6(H) 11.0 - 15.0 % LAB HEMETOLOGY METHOD 05/17/2024 10:23 AM [facility] LAB Platelets 240 130 - 400 K/mcL LAB HEMETOLOGY METHOD 05/17/2024 10:23 AM [facility] LAB MPV 13.4(H) 7.0 - 11.0 FL LAB HEMETOLOGY METHOD 05/17/2024 10:23 AM [facility] LAB NRBC 0.0 <1.0 % LAB HEMETOLOGY METHOD 05/17/2024 10:23 AM [facility] LAB NRBC Absolute 0.00 <0.10 K/mcL LAB HEMETOLOGY METHOD 05/17/2024 10:23 AM [facility] LAB Blood Venous blood specimen / Unknown Venipuncture / Unknown 05/17/2024 6:41 AM EST 05/17/2024 9:51 AM EST us Prince Le MD LAB BLOOD ORDERABLES Final Resul t [facility] LAB [address] [place] [address], [place] [phone] documented in this encounter Visit Diagnoses Diagnosis Essential (primary) hypertension Unspecified essential hypertension documented in this encounter Care Teams Carder Blankets Relationship Specialty Start Date End Date Tram Álvarez MD 2 [facility] , [address] [facility] Physician Associ D/B/A: [facility] JAS Duque PCP - General Internal Medicine 03/30/18 documented as of this encounter
--- OUTSIDE RECORDS SUMMARY | 2024-10-22 13:00 | XMS_ITS | Encounter Summary ---
Author Organization [facility] Address [address] [place] [address] Care Team Providers Care Trauma Doctor Name Role Phone Tram Álvarez MD Primary Care Provider [phone] Encounter Details Date Type Department Care Team (Late st Contact Info) Description 10/07/2024 Lab Requisition [facility] - Main Lab [address] [place] [address] Prince Le MD 38 [facility] [address] [place], [address] Type 2 diabetes mellitus without complications [...] AM EDT) WBC 17.5(H) 4.8 - 10.8 K/[facility] LAB HEMETOLOGY METHOD 10/07/2024 9:32 AM [facility] LAB RBC 3.80(L) 4.50 - 5.50 M/mcL LAB HEMETOLOGY METHOD 10/07/2024 9:32 AM [facility] LAB Hemoglobin 11.2(L) 13.5 - 17.5 g/dL LAB HEMETOLOGY METHOD 10/07/2024 9:32 AM [facility] LAB Hematocrit 35.1(L) 42.0 - 54.0 % LAB HEMETOLOGY METHOD 10/07/2024 9:32 AM [facility] LAB MCV 92.4 79.0 - 98.0 FL LAB HEMETOLOGY METHOD 10/07/2024 9:32 AM [facility] LAB MCH 29.5 27.0 - 32.0 pcg LAB HEMETOLOGY METHOD 10/07/2024 9:32 AM [facility] LAB MCHC 31.9(L) 32.0 - 37.0 g/dL LAB HEMETOLOGY METHOD 10/07/2024 9:32 AM [facility] LAB RDW 16.6(H) 11.0 - 15.0 % LAB HEMETOLOGY METHOD 10/07/2024 9:32 AM [facility] LAB Platelets 230 130 - 400 K/mcL LAB HEMETOLOGY METHOD 10/07/2024 9:32 AM [facility] LAB MPV 13.0(H) 7.0 - 11.0 FL LAB HEMETOLOGY METHOD 10/07/2024 9:32 AM [facility] LAB NRBC 0.0 <1.0 % LAB HEMETOLOGY METHOD 10/07/2024 9:32 AM [facility] LAB NRBC Absolute 0.00 <0.10 K/mcL LAB HEMETOLOGY METHOD 10/07/2024 9:32 AM [facility] LAB Neutrophils Relative 82.3 % LAB HEMETOLOGY METHOD 10/07/2024 9:32 AM [facility] LAB Lymphocytes Relative 10.0 % LAB HEMETOLOGY METHOD 10/07/2024 9:32 AM [facility] LAB Monocytes Relative 4.6 % LAB HEMETOLOGY METHOD 10/07/2024 9:32 AM [facility] LAB Eosinophils Relative 2.2 % LAB HEMETOLOGY METHOD 10/07/2024 9:32 AM [facility] LAB Basophils Relative 0.3 % LAB HEMETOLOGY METHOD 10/07/2024 9:32 AM [facility] LAB Immature Granulocytes Relative 0.6 % LAB HEMETOLOGY METHOD 10/07/2024 9:32 AM [facility] LAB Neutrophils Absolute 14.41(H) 1.50 - 7.00 K/mcL LAB HEMETOLOGY METHOD 10/07/2024 9:32 AM [facility] LAB Lymphocytes Absolute 1.74 1.00 - 5.00 K/mcL LAB HEMETOLOGY METHOD 10/07/2024 9:32 AM [facility] LAB Monocytes Absolute 0.80 0.20 - 1.00 K/mcL LAB HEMETOLOGY METHOD 10/07/2024 9:32 AM [facility] LAB Eosinophils Absolute 0.38 0.00 - 0.50 K/mcL LAB HEMETOLOGY METHOD 10/07/2024 9:32 AM [facility] LAB Basophils Absolute 0.05 0.00 - 0.20 K/mcL LAB HEMETOLOGY METHOD 10/07/2024 9:32 AM [facility] LAB Immature Granulocytes Absolute 0.10(H) 0.00 - 0.03 K/mcL LAB HEMETOLOGY METHOD 10/07/2024 9:32 AM [facility] LAB Blood Venous blood specimen / Unknown Venipuncture / Unknown 10/07/2024 5:18 AM EDT 10/07/2024 8:56 AM EDT us Prince Le MD LAB BLOOD ORDERABLES Final Resul t [facility] [address] [place] [address], [place] [phone] * (ABNORMAL) Basic metabolic panel (10/07/2024 5:18 AM EDT) Sodium 132(L) 133 - 145 mmol/L LAB CHEMISTRY METHOD 10/07/2024 10:16 AM [facility] LAB Potassium 5.0 3.5 - 5.5 mmol/L LAB CHEMISTRY METHOD 10/07/2024 10:16 AM [facility] LAB Chloride 99 96 - 110 mmol/L LAB CHEMISTRY METHOD 10/07/2024 10:16 AM [facility] LAB CO2 22 21 - 32 mmol/L LAB CHEMISTRY METHOD 10/07/2024 10:16 AM [facility] LAB Anion Gap 11 3 - 11 LAB CHEMISTRY METHOD 10/07/2024 10:16 AM [facility] LAB Glucose 82 70 - 100 mg/dL LAB CHEMISTRY METHOD 10/07/2024 10:16 AM [facility] LAB BUN 54(H) 5 - 25 mg/dL LAB CHEMISTRY METHOD 10/07/2024 10:16 AM [facility] LAB Creatinine 2.44(H) 0.70 - 1.30 mg/dL LAB CHEMISTRY METHOD 10/07/2024 10:16 AM [facility] LAB eGFR 28(L) >=60 mL/min/1. 73m2 LAB CHEMISTRY METHOD 10/07/2024 10:16 AM [facility] LAB Comment:Calculation based on the??Chronic Kidney Disease Epidemiology Collaboration (CKD-EPI) equation refit??without adjustment for race. BUN/Creatinine Ratio 22.1 LAB CHEMISTRY METHOD 10/07/2024 10:16 AM EDT [facility] Calcium 8.9 8.5 - 10.5 mg/dL LAB CHEMISTRY METHOD 10/07/2024 10:16 AM EDT [facility] Blood Venous blood specimen / Unknown Venipuncture / Unknown 10/07/2024 5:18 AM EDT 10/07/2024 8:56 AM EDT us Prince Le MD LAB BLOOD ORDERABLES Final Resul t [facility] [address] [place] [address], documented in this encounter Visit Diagnoses Diagnosis Type 2 diabetes mellitus without complications (CMS/HCC V24, CMS/HCC V28) documented in this encounter Care Teams Trauma Doctor Relationship Specialty Start Date End Date Tram Álvarez MD 2 [facility] , [address] [facility] Physician Associ D/B/A: [facility] [place] PCP - General Internal Medicine 03/30/18 documented as of this encounter
--- OUTSIDE RECORDS SUMMARY | 2024-10-22 13:00 | XMS_ITS | Clinical Summary ---
Author Organization [facility] Address [address] [place] [address] Care Team Providers Care Cone Trucker Name Role Phone Sade Dykes PA-C Primary Care Provider [phone] Source Comments PLEASE NOTE, if this patient [...] 60 Tab 0 12/01/19 14 Active Acidophilus-Pectin, Howell 25 million-100 cell-mg tabIndications:Dive rticulosis Take 1 tablet by mouth 2 (two) times daily. As directed by asp web developer 100 tablet 3 01/31/20 14 Active benazepril [...] of Treatment Not on file Insurance [id number] Care Teams Cone Trucker Relationship Specialty Start Date End Date Sade Dykes PA-C [address] [place] [address] [facility] - General 04/14/13
--- OUTSIDE RECORDS SUMMARY | 2024-10-22 13:00 | XMS_ITS | Encounter Summary ---
Author Organization [facility] Address [address] [place] [address] Care Team Providers Care Hypoid Gear Tester Name Role Phone Tram Álvarez MD Primary Care Provider [phone] Encounter Details Date Type Department Care Team (Late st Contact Info) Description 08/19/2024 Lab Requisition [facility] - Main Lab [address] [place] [address] Prince Le MD 38 [facility] [address] [place], [address] Type 2 diabetes mellitus without complications [...] mg/dL LAB CHEMISTRY METHOD 08/20/2024 11:12 AM [facility] LAB Blood Venous blood specimen / Unknown Venipuncture / Unknown 08/20/2024 7:39 AM EST 08/20/2024 10:36 AM EST us Prince Le MD LAB BLOOD ORDERABLES Final Resul t [facility] [address] [place] [address], * (ABNORMAL) Comprehensive metabolic panel (08/20/2024 7:39 AM EST) Sodium 139 133 - 145 mmol/L LAB CHEMISTRY METHOD 08/20/2024 11:11 AM [facility] LAB Potassium 4.5 3.5 - 5.5 mmol/L LAB CHEMISTRY METHOD 08/20/2024 11:11 AM [facility] LAB Chloride 109 96 - 110 mmol/L LAB CHEMISTRY METHOD 08/20/2024 11:11 AM [facility] LAB CO2 26 21 - 32 mmol/L LAB CHEMISTRY METHOD 08/20/2024 11:11 AM [facility] LAB Anion Gap 4 3 - 11 LAB CHEMISTRY METHOD 08/20/2024 11:11 AM [facility] LAB Glucose 120(H) 70 - 100 mg/dL LAB CHEMISTRY METHOD 08/20/2024 11:11 AM [facility] LAB BUN 22 5 - 25 mg/dL LAB CHEMISTRY METHOD 08/20/2024 11:11 AM [facility] LAB Creatinine 0.78 0.70 - 1.30 mg/dL LAB CHEMISTRY METHOD 08/20/2024 11:11 AM [facility] LAB eGFR 97 >=60 mL/min/1. 73m2 LAB CHEMISTRY METHOD 08/20/2024 11:11 AM [facility] LAB Comment:Calculation based on the??Chronic Kidney Disease Epidemiology Collaboration (CKD-EPI) equation refit??without adjustment for race. BUN/Creatinine Ratio 28.2 LAB CHEMISTRY METHOD 08/20/2024 11:11 AM [facility] LAB Calcium 9.3 8.5 - 10.5 mg/dL LAB CHEMISTRY METHOD 08/20/2024 11:11 AM [facility] LAB AST (SGOT) 35 10 - 42 unit/L LAB CHEMISTRY METHOD 08/20/2024 11:11 AM [facility] LAB ALT (SGPT) 30 10 - 60 unit/L LAB CHEMISTRY METHOD 08/20/2024 11:11 AM [facility] LAB Alkaline Phosphatase 39(L) 42 - 121 unit/L LAB CHEMISTRY METHOD 08/20/2024 11:11 AM [facility] LAB Total Protein 6.6 6.0 - 8.0 g/dL LAB CHEMISTRY METHOD 08/20/2024 11:11 AM [facility] LAB Albumin 3.5 3.2 - 5.0 g/dL LAB CHEMISTRY METHOD 08/20/2024 11:11 AM [facility] LAB Total Bilirubin 0.8 0.0 - 1.4 mg/dL LAB CHEMISTRY METHOD 08/20/2024 11:11 AM [facility] LAB Blood Venous blood specimen / Unknown Venipuncture / Unknown 08/20/2024 7:39 AM EST 08/20/2024 10:36 AM EST us Prince Le MD LAB BLOOD ORDERABLES Final Resul t [facility] [address] [place] [address], * (ABNORMAL) Complete blood count (08/20/2024 7:39 AM EST) WBC 13.2(H) 4.8 - 10.8 K/mcL LAB HEMETOLOGY METHOD 08/20/2024 10:52 AM [facility] LAB RBC 3.90(L) 4.50 - 5.50 M/mcL LAB HEMETOLOGY METHOD 08/20/2024 10:52 AM [facility] LAB Hemoglobin 11.0(L) 13.5 - 17.5 g/dL LAB HEMETOLOGY METHOD 08/20/2024 10:52 AM [facility] LAB Hematocrit 33.1(L) 42.0 - 54.0 % LAB HEMETOLOGY METHOD 08/20/2024 10:52 AM [facility] LAB MCV 85.3 79.0 - 98.0 FL LAB HEMETOLOGY METHOD 08/20/2024 10:52 AM [facility] LAB MCH 28.4 27.0 - 32.0 pcg LAB HEMETOLOGY METHOD 08/20/2024 10:52 AM [facility] LAB MCHC 33.2 32.0 - 37.0 g/dL LAB HEMETOLOGY METHOD 08/20/2024 10:52 AM [facility] LAB RDW 20.9(H) 11.0 - 15.0 % LAB HEMETOLOGY METHOD 08/20/2024 10:52 AM [facility] LAB Platelets 329 130 - 400 K/mcL LAB HEMETOLOGY METHOD 08/20/2024 10:52 AM [facility] LAB MPV 13.2(H) 7.0 - 11.0 FL LAB HEMETOLOGY METHOD 08/20/2024 10:52 AM [facility] LAB NRBC 0.0 <1.0 % LAB HEMETOLOGY METHOD 08/20/2024 10:52 AM [facility] LAB NRBC Absolute 0.00 <0.10 K/mcL LAB HEMETOLOGY METHOD 08/20/2024 10:52 AM [facility] LAB Blood Venous blood specimen / Unknown Venipuncture / Unknown 08/20/2024 7:39 AM EST 08/20/2024 10:36 AM EST us Prince Le MD LAB BLOOD ORDERABLES Final Resul t [facility] [address] [place] [address], [place] [phone] documented in this encounter Visit Diagnoses Diagnosis Type 2 diabetes mellitus without complications (CMS/HCC V24, CMS/HCC V28) documented in this encounter Care Teams Hypoid Gear Tester Relationship Specialty Start Date End Date Tram Álvarez MD 2 [facility] , [address] [facility] Physician Associ D/B/A: [facility] JAS Duque PCP - General Internal Medicine 03/30/18 documented as of this encounter
--- OUTSIDE RECORDS SUMMARY | 2024-10-22 13:00 | XMS_ITS | Encounter Summary ---
Author Organization [facility] Address [address] [place] [address] Care Team Providers Care Department Director Name Role Phone Tram Álvarez MD Primary Care Provider [phone] Encounter Details Date Type Department Care Team (Late st Contact Info) Description 10/18/2024 Lab Requisition [facility] - Main Lab [address] [place] [address] Preeti Lujan MD [address] [id number] Sepsis, unspecified organism (CMS/HCC V24, CMS/HCC V28) [...] LAB CHEMISTRY METHOD 10/18/2024 1:15 PM EDT [facility] Potassium 4.0 3.5 - 5.5 mmol/L LAB CHEMISTRY METHOD 10/18/2024 1:[address] [facility] LAB Chloride 113(H) 96 - 110 mmol/L LAB CHEMISTRY METHOD 10/18/2024 1:[address] [facility] LAB CO2 22 21 - 32 mmol/L LAB CHEMISTRY METHOD 10/18/2024 1:[address] [facility] LAB Anion Gap 7 3 - 11 LAB CHEMISTRY METHOD 10/18/2024 1:[address] [facility] Glucose 114(H) 70 - 100 mg/dL LAB CHEMISTRY METHOD 10/18/2024 1:[address] [facility] BUN 12 5 - 25 mg/dL LAB CHEMISTRY METHOD 10/18/2024 1:[address] [facility] LAB Creatinine 0.58(L) 0.70 - 1.30 mg/dL LAB CHEMISTRY METHOD 10/18/2024 1:[address] [facility] LAB eGFR 106 >=60 mL/min/1. 73m2 LAB CHEMISTRY METHOD 10/18/2024 1:[address] [facility] LAB Comment:Calculation based on the??Chronic Kidney Disease Epidemiology Collaboration (CKD-EPI) equation refit??without adjustment for race. BUN/Creatinine Ratio 20.7 LAB CHEMISTRY METHOD 10/18/2024 1:[address] [facility] LAB Calcium 8.7 8.5 - 10.5 mg/dL LAB CHEMISTRY METHOD 10/18/2024 1:[address] [facility] LAB Blood Venous blood specimen / Unknown Venipuncture / Unknown 10/18/2024 9:03 AM EDT 10/18/2024 11:02 AM EDT us Preeti Lujan MD LAB BLOOD ORDERABLES Fin al Result [facility] LAB [address] [place], [place] [address] [phone] * (ABNORMAL) Complete blood count (10/18/2024 9:03 AM EDT) [facility] WBC 5.9 4.8 - 10.8 K/mcL LAB HEMETOLOGY METHOD [facility] RBC 3.40(L) 4.50 - 5.50 M/mcL LAB HEMETOLOGY METHOD 10/18[facility]2024 [facility] Hemoglobin 10.1(L) 13.5 - 17.5 g/dL LAB HEMETOLOGY METHOD 10/18/2024 1:[address] [facility] Hematocrit 32.3(L) 42.0 - 54.0 % LAB HEMETOLOGY METHOD 10/18/2024 1:[address] [facility] LAB MCV 96.4 79.0 - 98.0 FL LAB HEMETOLOGY METHOD 10/18/2024 1:35 PM EDT [facility] LAB MCH 30.1 27.0 - 32.0 pcg LAB HEMETOLOGY METHOD 10/18/2024 1:[address] [facility] LAB MCHC 31.3(L) 32.0 - 37.0 g/dL LAB HEMETOLOGY METHOD 10/18/2024 1:[address] [facility] LAB RDW 18.2(H) 11.0 - 15.0 % LAB HEMETOLOGY METHOD 10/18/2024 1[facility] Platelets 275 130 - 400 K/mcL LAB HEMETOLOGY METHOD 10/18/2024 1:[address] [facility] LAB MPV 13.2(H) 7.0 - 11.0 FL LAB HEMETOLOGY METHOD 10/18/2024 1:[address] [facility] LAB NRBC 0.0 <1.0 % LAB HEMETOLOGY METHOD 10/18/2024 1:35 PM EDT [facility] LAB NRBC Absolute 0.00 <0.10 K/mcL LAB HEMETOLOGY METHOD 10/18/2024 1:35 PM EDT [facility] LAB Blood Venous blood specimen / Unknown Venipuncture / Unknown 10/18/2024 9:03 AM EDT 10/18/2024 11:02 AM EDT us Preeti Lujan MD LAB BLOOD ORDERABLES Fin al Result [facility] LAB [address] [place] [address], documented in this encounter Visit Diagnoses Diagnosis Sepsis, unspecified organism (CMS/HCC V24, CMS/HCC V28) documented in this encounter Care Teams Department Director Relationship Specialty Start Date End Date Tram Álvarez MD 2 [facility] , [address] [facility] Physician Associ D/B/A: [facility] JAS Duque PCP - General Internal Medicine 03/30/18 documented as of this encounter
--- OUTSIDE RECORDS SUMMARY | 2024-10-22 13:00 | XMS_ITS | Encounter Summary ---
Author Organization [facility] Address [address] [place] [address] Care Team Providers Care Sprayer Operator Name Role Phone Tram Álvarez MD Primary Care Provider [phone] Encounter Details Date Type Department Care Team (Late st Contact Info) Description 08/05/[address] [facility] - Main Lab 299 [facility] [place] [address] Prince Le MD 38 [facility] [address] [place], [address] Type 2 diabetes mellitus without complications [...] mg/dL LAB CHEMISTRY METHOD 08/06/2024 9:31 AM [facility] LAB Blood Venous blood specimen / Unknown Venipuncture / Unknown 08/06/2024 6:49 AM EST 08/06/2024 8:31 AM EST us Prince Le MD LAB BLOOD ORDERABLES Final Resul t [facility] LAB [address] [place] [address], * Comprehensive metabolic panel (08/06/2024 6:49 AM EST) Sodium 140 133 - 145 mmol/L LAB CHEMISTRY METHOD 08/06/2024 9:31 AM [facility] LAB Potassium 5.0 3.5 - 5.5 mmol/L LAB CHEMISTRY METHOD 08/06/2024 9:31 AM [facility] LAB Chloride 106 96 - 110 mmol/L LAB CHEMISTRY METHOD 08/06/2024 9:31 AM [facility] LAB CO2 30 21 - 32 mmol/L LAB CHEMISTRY METHOD 08/06/2024 9:31 AM [facility] LAB Anion Gap 4 3 - 11 LAB CHEMISTRY METHOD 08/06/2024 9:31 AM [facility] LAB Glucose 99 70 - 100 mg/dL LAB CHEMISTRY METHOD 08/06/2024 9:31 AM [facility] LAB BUN 25 5 - 25 mg/dL LAB CHEMISTRY METHOD 08/06/2024 9:31 AM [facility] LAB Creatinine 1.10 0.70 - 1.30 mg/dL LAB CHEMISTRY METHOD 08/06/2024 9:31 AM [facility] LAB eGFR 73 >=60 mL/min/1. 73m2 LAB CHEMISTRY METHOD 08/06/2024 9:31 AM [facility] LAB Comment:Calculation based on the??Chronic Kidney Disease Epidemiology Collaboration (CKD-EPI) equation refit??without adjustment for race. BUN/Creatinine Ratio 22.7 LAB CHEMISTRY METHOD 08/06/2024 9:31 AM [facility] LAB Calcium 9.5 8.5 - 10.5 mg/dL LAB CHEMISTRY METHOD 08/06/2024 9:31 AM [facility] LAB AST (SGOT) 33 10 - 42 unit/L LAB CHEMISTRY METHOD 08/06/2024 9:31 AM [facility] LAB ALT (SGPT) 26 10 - 60 unit/L LAB CHEMISTRY METHOD 08/06/2024 9:31 AM [facility] LAB Alkaline Phosphatase 51 42 - 121 unit/L LAB CHEMISTRY METHOD 08/06/2024 9:31 AM [facility] LAB Total Protein 6.6 6.0 - 8.0 g/dL LAB CHEMISTRY METHOD 08/06/2024 9:31 AM [facility] LAB Albumin 3.4 3.2 - 5.0 g/dL LAB CHEMISTRY METHOD 08/06/2024 9:31 AM [facility] LAB Total Bilirubin 0.4 0.0 - 1.4 mg/dL LAB CHEMISTRY METHOD 08/06/2024 9:31 AM [facility] LAB Blood Venous blood specimen / Unknown Venipuncture / Unknown 08/06/2024 6:49 AM EST 08/06/2024 8:31 AM EST us Prince Le MD LAB BLOOD ORDERABLES Final Resul t [facility] LAB [address] [place] [address], * (ABNORMAL) Complete blood count (08/06/2024 6:49 AM EST) WBC 8.2 4.8 - 10.8 K/mcL LAB HEMETOLOGY METHOD 08/06/2024 9:12 AM EST [facility] LAB RBC 4.50 4.50 - 5.50 M/mcL LAB HEMETOLOGY METHOD 08/06/2024 9:12 AM [facility] LAB Hemoglobin 12.2(L) 13.5 - 17.5 g/dL LAB HEMETOLOGY METHOD 08/06/2024 9:12 AM [facility] LAB Hematocrit 37.4(L) 42.0 - 54.0 % LAB HEMETOLOGY METHOD 08/06/2024 9:12 AM [facility] LAB MCV 84.0 79.0 - 98.0 FL LAB HEMETOLOGY METHOD 08/06/2024 9:12 AM [facility] LAB MCH 27.4 27.0 - 32.0 pcg LAB HEMETOLOGY METHOD 08/06/2024 9:12 AM [facility] LAB MCHC 32.6 32.0 - 37.0 g/dL LAB HEMETOLOGY METHOD 08/06/2024 9:12 AM [facility] LAB RDW 20.3(H) 11.0 - 15.0 % LAB HEMETOLOGY METHOD 08/06/2024 9:12 AM [facility] LAB Platelets 351 130 - 400 K/mcL LAB HEMETOLOGY METHOD 08/06/2024 9:12 AM [facility] LAB MPV 12.2(H) 7.0 - 11.0 FL LAB HEMETOLOGY METHOD 08/06/2024 9:12 AM [facility] LAB NRBC 0.0 <1.0 % LAB HEMETOLOGY METHOD 08/06/2024 9:12 AM [facility] LAB NRBC Absolute 0.00 <0.10 K/mcL LAB HEMETOLOGY METHOD 08/06/2024 9:12 AM [facility] LAB Blood Venous blood specimen / Unknown Venipuncture / Unknown 08/06/2024 6:49 AM EST 08/06/2024 8:31 AM EST us Prince Le MD LAB BLOOD ORDERABLES Final Resul t [facility] [address] [place] [address], [place] [phone] documented in this encounter Visit Diagnoses Diagnosis Type 2 diabetes mellitus without complications (CMS/HCC V24, CMS/HCC V28) documented in this encounter Care Teams Sprayer Operator Relationship Specialty Start Date End Date Tram Álvarez MD 2 [facility] , [address] [facility] Physician Associ D/B/A: [facility] [place] PCP - General Internal Medicine 03/30/18 documented as of this encounter
--- OUTSIDE RECORDS SUMMARY | 2024-10-22 13:00 | XMS_ITS | Clinical Summary ---
Author Organization [facility] Facility Address [address] [place] [address] Care Team Providers Care Cement Storage Worker Name Role Phone Tram Royal MD Primary Care Provider [phone] Allergies Active Allergy Reactions Criticality Noted Date [...] % PVNMA 04/28/2020 us [facility] [id number] LICITED RESULTS Final Result PVNMA from Last 3 Months or Most Recently Relevant to Health Maintenance Insurance [id number] [place] [id number] [employer] [place] [id number] [place] [id number] [place] Care Teams Cement Storage Worker Relationship Specialty Start Date End Date Tram Royal MD [address] [place] PCP - General 07/17/20
--- OUTSIDE RECORDS SUMMARY | 2024-10-22 13:00 | XMS_ITS | Encounter Summary ---
Author Organization [facility] Address [address] [place] [address] Care Team Providers Care Pit Hand Name Role Phone Tram Álvarez MD Primary Care Provider [phone] Encounter Details Date Type Department Care Team (Late st Contact Info) Description 10/14/2024 Lab Requisition [facility] - Main Lab [address] [facility] [place] [address] Prince Le MD 38 [facility] 204 [place], [address] Type 2 diabetes mellitus without complications [...] V28) documented in this encounter Care Teams Pit Hand Relationship Specialty Start Date End Date Tram Álvarez MD [address] [place] [address] , [address] [facility] Physician Associ D/B/A: [facility] [place], [place] PCP - General Internal Medicine 03/30/18 documented as of this encounter
--- OUTSIDE RECORDS SUMMARY | 2024-10-22 13:00 | XMS_ITS | Encounter Summary ---
Author Organization [facility] Address [address] [place] [address] Care Team Providers Care Shop Technician Name Role Phone Tram Álvarez MD Primary Care Provider [phone] Encounter Details Date Type Department Care Team (Late st Contact Info) Description 10/07/2024 Lab Requisition [facility] - Main Lab [address] [facility] [place] [address] Prince Le MD 38 [facility] 204 [place], [address] Type 2 diabetes mellitus without complications [...] documented in this encounter Care Teams Shop Technician Relationship Specialty Start Date End Date Tram Álvarez MD [address] [place] [address] , [address] [facility] Physician Associ D/B/A: [facility] [place], [place] PCP - General Internal Medicine 03/30/18 documented as of this encounter
--- OUTSIDE RECORDS SUMMARY | 2024-10-22 13:01 | XMS_ITS | Encounter Summary ---
Author Organization [facility] Address [address] [place] [address] Care Team Providers Care Paediatric Physiotherapist Name Role Phone Tram Álvarez MD Primary Care Provider [phone] Encounter Details Date Type Department Care Team (Late st Contact Info) Description 07/29/2024 Lab Requisition [facility] - Main Lab [address] [place] [address] Prince Le MD 38 [facility] [address] [place], [address] Type 2 diabetes mellitus without complications [...] mg/dL LAB CHEMISTRY METHOD 07/30/2024 10:25 AM [facility] LAB Blood Venous blood specimen / Unknown Venipuncture / Unknown 07/30/2024 7:30 AM EST 07/30/2024 9:39 AM EST us Prince Le MD LAB BLOOD ORDERABLES Final Resul t [facility] LAB [address] [place] [address], [place] [phone] * (ABNORMAL) Comprehensive metabolic panel (07/30/2024 7:30 AM EST) Sodium 140 133 - 145 mmol/L LAB CHEMISTRY METHOD 07/30/2024 10:25 AM [facility] LAB Potassium 5.1 3.5 - 5.5 mmol/L LAB CHEMISTRY METHOD 07/30/2024 10:25 AM [facility] LAB Chloride 107 96 - 110 mmol/L LAB CHEMISTRY METHOD 07/30/2024 10:25 AM [facility] LAB CO2 31 21 - 32 mmol/L LAB CHEMISTRY METHOD 07/30/2024 10:25 AM [facility] LAB Anion Gap 2(L) 3 - 11 LAB CHEMISTRY METHOD 07/30/2024 10:25 AM [facility] LAB Glucose 76 70 - 100 mg/dL LAB CHEMISTRY METHOD 07/30/2024 10:25 AM [facility] LAB BUN 28(H) 5 - 25 mg/dL LAB CHEMISTRY METHOD 07/30/2024 10:25 AM [facility] LAB Creatinine 1.13 0.70 - 1.30 mg/dL LAB CHEMISTRY METHOD 07/30/2024 10:25 AM [facility] LAB eGFR 71 >=60 mL/min/1. 73m2 LAB CHEMISTRY METHOD 07/30/2024 10:25 AM [facility] LAB Comment:Calculation based on the??Chronic Kidney Disease Epidemiology Collaboration (CKD-EPI) equation refit??without adjustment for race. BUN/Creatinine Ratio 24.8 LAB CHEMISTRY METHOD 07/30/2024 10:25 AM [facility] LAB Calcium 9.5 8.5 - 10.5 mg/dL LAB CHEMISTRY METHOD 07/30/2024 10:25 AM [facility] LAB AST (SGOT) 28 10 - 42 unit/L LAB CHEMISTRY METHOD 07/30/2024 10:25 AM [facility] LAB ALT (SGPT) 24 10 - 60 unit/L LAB CHEMISTRY METHOD 07/30/2024 10:25 AM [facility] LAB Alkaline Phosphatase 62 42 - 121 unit/L LAB CHEMISTRY METHOD 07/30/2024 10:25 AM [facility] LAB Total Protein 6.4 6.0 - 8.0 g/dL LAB CHEMISTRY METHOD 07/30/2024 10:25 AM [facility] LAB Albumin 3.2 3.2 - 5.0 g/dL LAB CHEMISTRY METHOD 07/30/2024 10:25 AM [facility] LAB Total Bilirubin 0.4 0.0 - 1.4 mg/dL LAB CHEMISTRY METHOD 07/30/2024 10:25 AM [facility] LAB Blood Venous blood specimen / Unknown Venipuncture / Unknown 07/30/2024 7:30 AM EST 07/30/2024 9:39 AM EST us Prince Le MD LAB BLOOD ORDERABLES Final Resul t [facility] LAB [address] [place] [address], * (ABNORMAL) Complete blood count (07/30/2024 7:30 AM EST) WBC 8.9 4.8 - 10.8 K/mcL LAB HEMETOLOGY METHOD 07/30/2024 9:55 AM EST [facility] LAB RBC 4.30(L) 4.50 - 5.50 M/mcL LAB HEMETOLOGY METHOD 07/30/2024 9:55 AM [facility] LAB Hemoglobin 12.1(L) 13.5 - 17.5 g/dL LAB HEMETOLOGY METHOD 07/30/2024 9:55 AM [facility] LAB Hematocrit 36.5(L) 42.0 - 54.0 % LAB HEMETOLOGY METHOD 07/30/2024 9:55 AM [facility] LAB MCV 84.3 79.0 - 98.0 FL LAB HEMETOLOGY METHOD 07/30/2024 9:55 AM [facility] LAB MCH 27.9 27.0 - 32.0 pcg LAB HEMETOLOGY METHOD 07/30/2024 9:55 AM [facility] LAB MCHC 33.2 32.0 - 37.0 g/dL LAB HEMETOLOGY METHOD 07/30/2024 9:55 AM [facility] LAB RDW 19.4(H) 11.0 - 15.0 % LAB HEMETOLOGY METHOD 07/30/2024 9:55 AM [facility] LAB Platelets 315 130 - 400 K/mcL LAB HEMETOLOGY METHOD 07/30/2024 9:55 AM [facility] LAB MPV 12.7(H) 7.0 - 11.0 FL LAB HEMETOLOGY METHOD 07/30/2024 9:55 AM [facility] LAB NRBC 0.0 <1.0 % LAB HEMETOLOGY METHOD 07/30/2024 9:55 AM [facility] LAB NRBC Absolute 0.00 <0.10 K/mcL LAB HEMETOLOGY METHOD 07/30/2024 9:55 AM [facility] LAB Blood Venous blood specimen / Unknown Venipuncture / Unknown 07/30/2024 7:30 AM EST 07/30/2024 9:39 AM EST us Prince Le MD LAB BLOOD ORDERABLES Final Resul t [facility] LAB [address] [place] [address], documented in this encounter Visit Diagnoses Diagnosis Type 2 diabetes mellitus without complications (CMS/HCC V24, CMS/HCC V28) documented in this encounter Care Teams Paediatric Physiotherapist Relationship Specialty Start Date End Date Tram Álvarez MD 2 [facility] , [address] [facility] Physician Associ D/B/A: [facility] JAS Duque PCP - General Internal Medicine 03/30/18 documented as of this encounter
--- OUTSIDE RECORDS SUMMARY | 2024-10-22 13:01 | XMS_ITS | Encounter Summary ---
Author Organization [facility] Address [address] [place] [address] Care Team Providers Care Bucket Pusher Name Role Phone Tram Álvarez MD Primary Care Provider [phone] Encounter Details Date Type Department Care Team (Late st Contact Info) Description 09/30/2024 Lab Requisition [facility] - Main Lab 299 [facility] [place] [address] Prince Le MD 38 [facility] 204 [place], [address] Type 2 diabetes mellitus without complications [...] mg/dL LAB CHEMISTRY METHOD 10/01/2024 11:[address] [facility] Blood Venous blood specimen / Unknown Venipuncture / Unknown 10/01/2024 8:01 AM EDT 10/01/2024 10:24 AM EDT us Prince Le MD LAB BLOOD ORDERABLES Final Resul t [facility] LAB [address] [place] [address], [place] [phone] * (ABNORMAL) Comprehensive metabolic panel (10/01/2024 8:01 AM EDT) Sodium 134 133 - 145 mmol/L LAB CHEMISTRY METHOD 10/01/2024 12:[address] [facility] Potassium 4.7 3.5 - 5.5 mmol/L LAB CHEMISTRY METHOD 10/01/2024 12:[address] [facility] Chloride 101 96 - 110 mmol/L LAB CHEMISTRY METHOD 10/01/2024 12:[address] [facility] CO2 27 21 - 32 mmol/L LAB CHEMISTRY METHOD 10/01/2024 12:[address] [facility] Anion Gap 6 3 - 11 LAB CHEMISTRY METHOD 10/01/2024 12:[address] [facility] Glucose 79 70 - 100 mg/dL LAB CHEMISTRY METHOD 10/01/2024 12:[address] [facility] BUN 40(H) 5 - 25 mg/dL LAB CHEMISTRY METHOD 10/01/2024 12:[address] [facility] Creatinine 1.55(H) 0.70 - 1.30 mg/dL LAB CHEMISTRY METHOD 10/01/2024 12:[address] [facility] eGFR 48(L) >=60 mL/min/1. 73m2 LAB CHEMISTRY METHOD 10/01/2024 12:[address] [facility] Comment:Calculation based on the??Chronic Kidney Disease Epidemiology Collaboration (CKD-EPI) equation refit??without adjustment for race. BUN/Creatinine Ratio 25.8 LAB CHEMISTRY METHOD 10/01/2024 12:[address] [facility] Calcium 8.8 8.5 - 10.5 mg/dL LAB CHEMISTRY METHOD 10/01/2024 12:[address] [facility] AST (SGOT) 63(H) 10 - 42 unit/L LAB CHEMISTRY METHOD 10/01/2024 12:[address] [facility] ALT (SGPT) 30 10 - 60 unit/L LAB CHEMISTRY METHOD 10/01/2024 12:[address] [facility] Alkaline Phosphatase 40(L) 42 - 121 unit/L LAB CHEMISTRY METHOD 10/01/2024 12:[address] [facility] Total Protein 6.0 6.0 - 8.0 g/dL LAB CHEMISTRY METHOD 10/01/2024 12:[address] [facility] Albumin 2.9(L) 3.2 - 5.0 g/dL LAB CHEMISTRY METHOD 10/01/2024 12:[address] [facility] Total Bilirubin 0.4 0.0 - 1.4 mg/dL LAB CHEMISTRY METHOD 10/01/2024 12:[address] [facility] Blood Venous blood specimen / Unknown Venipuncture / Unknown 10/01/2024 8:01 AM EDT 10/01/2024 10:24 AM EDT us Prince Le MD LAB BLOOD ORDERABLES Final Resul t [facility] [address] [place] [address], * (ABNORMAL) Complete blood count (10/01/2024 8:01 AM EDT) WBC 7.3 4.8 - 10.8 K/mcL LAB HEMETOLOGY METHOD 10/01/2024 11:[address] [facility] RBC 4.00(L) 4.50 - 5.50 M/mcL LAB HEMETOLOGY METHOD 10/01/2024 11:[address] [facility] Hemoglobin 11.8(L) 13.5 - 17.5 g/dL LAB HEMETOLOGY METHOD 10/01/2024 11:[address] [facility] Hematocrit 37.0(L) 42.0 - 54.0 % LAB HEMETOLOGY METHOD 10/01/2024 11:[address] [facility] MCV 93.7 79.0 - 98.0 FL LAB HEMETOLOGY METHOD 10/01/2024 11:[address] [facility] MCH 29.9 27.0 - 32.0 pcg LAB HEMETOLOGY METHOD 10/01/2024 11:[address] [facility] MCHC 31.9(L) 32.0 - 37.0 g/dL LAB HEMETOLOGY METHOD 10/01/2024 11:[address] [facility] RDW 16.4(H) 11.0 - 15.0 % LAB HEMETOLOGY METHOD 10/01/2024 11:[address] [facility] Platelets 416(H) 130 - 400 K/mcL LAB HEMETOLOGY METHOD 10/01/2024 11:[address] [facility] MPV 11.3(H) 7.0 - 11.0 FL LAB HEMETOLOGY METHOD 10/01/2024 11:[address] [facility] NRBC 0.0 <1.0 % LAB HEMETOLOGY METHOD 10/01/2024 11:[address] [facility] NRBC Absolute 0.00 <0.10 K/mcL LAB HEMETOLOGY METHOD 10/01/2024 11:[address] [facility] Blood Venous blood specimen / Unknown Venipuncture / Unknown 10/01/2024 8:01 AM EDT 10/01/2024 10:24 AM EDT us Prince Le MD LAB BLOOD ORDERABLES Final Resul t [facility] [address] [place] [address], documented in this encounter Visit Diagnoses Diagnosis Type 2 diabetes mellitus without complications (CMS/HCC V24, CMS/HCC V28) documented in this encounter Care Teams Bucket Pusher Relationship Specialty Start Date End Date Tram Álvarez MD 2 [facility] , [address] Physician Associ D/B/A: [facility] [place] PCP - General Internal Medicine 03/30/18 documented as of this encounter
--- OUTSIDE RECORDS SUMMARY | 2024-10-22 13:01 | XMS_ITS | Clinical Summary ---
Author Organization [employer] Address [address] [facility] [address] [place] [address] Care Team Providers Care Hardware Assembler Name Role Phone Unavailable Primary Care Provider Unavailabl e Social History Tobacco Use Types Packs/Day Years Used Date Smoking Tobacco: Never Assessed Sex and Gender Information Value Date Recorded Sex Assigned at Male 05/06/2022 10:29 AM EDT Legal Sex Male 10:29 AM EDT Gender Identity Not on file Sexual Orientation Not on file Plan of Treatment Upcoming Encounters Date Type Department Care Team ([facility] st Contact Info) Description 11/15/2024 10:45 AM EDT Office Visit [facility] MEDICINE [address] [place] [address] Shannan Moscoso DO [address] [place] [address] Health Maintenance Due Date Last Done Comments [...] patient's age to complete this topic Insurance [facility]
--- OUTSIDE RECORDS SUMMARY | 2024-10-22 13:01 | XMS_ITS | Encounter Summary ---
Author Organization [facility] Address [address] [place] [address] Care Team Providers Care Drawer Upfitter Name Role Phone Tram Álvarez MD Primary Care Provider [phone] Encounter Details Date Type Department Care Team (Late st Contact Info) Description 09/09/2024 Lab Requisition [facility] - Main Lab [address] [facility] [place] [address] Prince Le MD 38 [facility] [address] [place], [address] Type 2 diabetes mellitus without complications [...] V28) documented in this encounter Care Teams Drawer Upfitter Relationship Specialty Start Date End Date Tram Álvarez MD [address] [place] [address] , [address] [facility] Physician Associ D/B/A: [facility] [place], [place] PCP - General Internal Medicine 03/30/18 documented as of this encounter
--- OUTSIDE RECORDS SUMMARY | 2024-10-22 13:01 | XMS_ITS | Encounter Summary ---
Author Organization [facility] Address [address] [place] [address] Care Team Providers Care Harvest Field Ticketer Name Role Phone Tram Álvarez MD Primary Care Provider [phone] Encounter Details Date Type Department Care Team (Late st Contact Info) Description 05/21/[address] [facility] - Main Lab [address] [place] [address] Prince Le MD 38 [facility] [address] [place], [address] Essential (primary) hypertension Social History Tobacco [...] LAB CHEMISTRY METHOD 05/24/2024 9:[address] [facility] Potassium 4.2 3.5 - 5.5 mmol/L LAB CHEMISTRY METHOD 05/24/2024 9:[address] [facility] Chloride 109 96 - 110 [...] Resul t [facility] [address] [place] [address], * (ABNORMAL) Complete blood count (05/24/2024 6:00 AM EST) WBC 9.3 4.8 - 10.8 K/mcL LAB HEMETOLOGY METHOD 05/24/2024 9:03 AM [facility] RBC 4.90 4.50 - 5.50 M/[facility] LAB HEMETOLOGY METHOD 05/24/2024 9:03 AM [...] HOSPITAL LAB Platelets 249 130 - 400 K/[facility] LAB HEMETOLOGY METHOD 05/24/2024 9:03 AM [facility] MPV 13.1(H) 7.0 - 11.0 FL LAB HEMETOLOGY METHOD 05/24/2024 9:03 AM [facility] NRBC 0.0 <1.0 % LAB HEMETOLOGY METHOD 05/24/2024 9:03 AM [facility] NRBC Absolute 0.00 <0.10 K/[facility] LAB HEMETOLOGY METHOD 05/24/2024 9:03 AM [facility] Blood Venous blood specimen / Unknown Venipuncture / Unknown 05/24/2024 6:00 AM EST 05/24/2024 7:45 AM EST us Prince Le MD LAB BLOOD ORDERABLES Final [facility] [address] [place] [address], documented in this encounter Visit Diagnoses Diagnosis Essential (primary) hypertension Unspecified essential hypertension documented in this encounter Care Teams Harvest Field Ticketer Relationship Specialty Start Date End Date Tram Álvarez MD 2 [facility] , [address] [place] [address] Physician Associ D/B/A: [facility] JAS Duque PCP - General Internal Medicine 03/30/18 documented as of this encounter
--- OUTSIDE RECORDS SUMMARY | 2024-10-22 13:01 | XMS_ITS | Encounter Summary ---
Author Organization [facility] Address [address] [place] [address] Care Team Providers Care Account Clerk Name Role Phone Tram Álvarez MD Primary Care Provider [phone] Encounter Details Date Type Department Care Team (Late st Contact Info) Description 05/28/2024 Lab Requisition [facility] - Main Lab [address] [place] [address] Prince Le MD [address] [facility] [address] [place], [address] Essential (primary) hypertension Social History Tobacco [...] LAB CHEMISTRY METHOD 05/31/2024 11:37 AM EST [facility] Potassium 4.5 3.5 - 5.5 mmol/L LAB CHEMISTRY METHOD 05/31/2024 11:37 AM EST [facility] Chloride 108 96 - 110 mmol/L LAB CHEMISTRY METHOD 05/31/2024 11:37 AM [facility] CO2 28 21 - 32 mmol/L LAB CHEMISTRY METHOD 05/31/2024 11:37 AM [facility] Anion Gap 6 3 - 11 LAB CHEMISTRY METHOD 05/31/2024 11:37 AM [facility] Glucose 104(H) 70 - 100 mg/dL LAB CHEMISTRY METHOD 05/31/2024 11:37 AM [facility] BUN 25 5 - 25 mg/dL LAB CHEMISTRY METHOD 05/31/2024 11:37 AM [facility] Creatinine 1.15 0.70 - 1.30 mg/dL LAB CHEMISTRY METHOD 05/31/2024 11:37 AM [facility] LAB eGFR 69 >=60 mL/min/1. 73m2 LAB CHEMISTRY METHOD 05/31/2024 11:37 AM [facility] LAB Comment:Calculation based on the??Chronic Kidney Disease Epidemiology Collaboration (CKD-EPI) equation refit??without adjustment for race. BUN/Creatinine Ratio 21.7 LAB CHEMISTRY METHOD 05/31/2024 11:37 AM [facility] Calcium 9.2 8.5 - 10.5 mg/dL LAB CHEMISTRY METHOD 05/31/2024 11:37 AM [facility] Blood Venous blood specimen / Unknown Venipuncture / Unknown 05/31/2024 7:20 AM EST 05/31/2024 10:13 AM EST us Prince Le MD LAB BLOOD ORDERABLES Final Resul t [facility] [address] [place] [address], * (ABNORMAL) Complete blood count (05/31/2024 7:20 AM EST) WBC 8.8 4.8 - 10.8 K/mcL LAB HEMETOLOGY METHOD 05/31/2024 10:39 AM [facility] RBC 5.10 4.50 - 5.50 M/mcL LAB HEMETOLOGY METHOD 05/31/2024 10:39 AM [facility] Hemoglobin 14.2 13.5 - 17.5 g/dL LAB HEMETOLOGY METHOD 05/31/2024 10:39 AM [facility] Hematocrit 44.7 42.0 - 54.0 % LAB HEMETOLOGY METHOD 05/31/2024 10:39 AM [facility] LAB MCV 87.0 79.0 - 98.0 FL LAB HEMETOLOGY METHOD 05/31/2024 10:39 AM [facility] MCH 27.6 27.0 - 32.0 pcg LAB HEMETOLOGY METHOD 05/31/2024 10:39 AM [facility] MCHC 31.8(L) 32.0 - 37.0 g/dL LAB HEMETOLOGY METHOD 05/31/2024 10:39 AM [facility] RDW 16.5(H) 11.0 - 15.0 % LAB HEMETOLOGY METHOD 05/31/2024 10:39 AM [facility] LAB Platelets 242 130 - 400 K/mcL LAB HEMETOLOGY METHOD 05/31/2024 10:39 AM [facility] LAB MPV 12.5(H) 7.0 - 11.0 FL LAB HEMETOLOGY METHOD 05/31/2024 10:39 AM [facility] NRBC 0.0 <1.0 % LAB HEMETOLOGY METHOD 05/31/2024 10:39 AM [facility] NRBC Absolute 0.00 <0.10 K/mcL LAB HEMETOLOGY METHOD 05/31/2024 10:39 AM [facility] Blood Venous blood specimen / Unknown Venipuncture / Unknown 05/31/2024 7:20 AM EST 05/31/2024 10:16 AM EST us Prince Le MD LAB BLOOD ORDERABLES Final [facility]ul t [facility] [address] [place] [address], [place] [phone] documented in this encounter Visit Diagnoses Diagnosis Essential (primary) hypertension Unspecified essential hypertension documented in this encounter Care Teams Account Clerk Relationship Specialty Start Date End Date Tram Álvarez MD 2 [facility] , [address] [facility] Physician Associ D/B/A: [facility] JAS Duque PCP - General Internal Medicine 03/30/18 documented as of this encounter
--- OUTSIDE RECORDS SUMMARY | 2024-10-22 13:01 | XMS_ITS | Encounter Summary ---
Author Organization [facility] Address [address] [place] [address] Care Team Providers Care Furniture Shampooer Name Role Phone Tram Álvarez MD Primary Care Provider [phone] Encounter Details Date Type Department Care Team (Late st Contact Info) Description 08/26/2024 Lab Requisition [facility] - Main Lab 299 [facility] [place] [address] Prince Le MD 38 [facility] [address] [place], [address] Type 2 [...] mg/dL LAB CHEMISTRY METHOD 08/27/2024 9:27 AM [facility] Triglycerides 249(H) 0 - 150 mg/dL LAB CHEMISTRY METHOD 08/27/2024 9:27 AM [facility] HDL 30(L) >=40 mg/dL LAB CHEMISTRY METHOD 08/27/2024 9:27 AM [facility] LDL Calculated 16 0 - 100 mg/dL LAB CHEMISTRY METHOD 08/27/2024 9:27 AM [facility] VLDL Cholesterol Maikel 49.8 mg/dL LAB CHEMISTRY METHOD 08/27/2024 9:27 AM [facility] Non HDL Chol. (LDL+VLDL) 66 <145 mg/dL LAB CHEMISTRY METHOD 08/27/2024 9:27 AM [facility] Chol/HDL Ratio 3.2 0.0 - 4.4 LAB CHEMISTRY METHOD 08/27/2024 9:27 AM [facility] Blood Venous blood specimen / Unknown Venipuncture / Unknown 08/27/2024 6:34 AM EST 08/27/2024 8:52 AM EST us Prince Le MD LAB BLOOD ORDERABLES Final Resul t [facility] [address] [place] [address], * (ABNORMAL) C-reactive protein (08/27/2024 6:34 AM EST) C-Reactive Protein 1.47(H) <=0.50 mg/dL LAB CHEMISTRY METHOD 08/27/2024 9:27 AM [facility] Blood Venous blood specimen / Unknown Venipuncture / Unknown 08/27/2024 6:34 AM EST 08/27/2024 8:52 AM EST us Prince Le MD LAB BLOOD ORDERABLES Final Resul t [facility] [address] [place] [address], [place] [phone] * (ABNORMAL) Comprehensive metabolic panel (08/27/2024 6:34 AM EST) Sodium 139 133 - 145 mmol/L LAB CHEMISTRY METHOD 08/27/2024 9:27 AM [facility] Potassium 4.6 3.5 - 5.5 mmol/L LAB CHEMISTRY METHOD 08/27/2024 9:27 AM [facility] Chloride 105 96 - 110 mmol/L LAB CHEMISTRY METHOD 08/27/2024 9:27 AM [facility] CO2 31 21 - 32 mmol/L LAB CHEMISTRY METHOD 08/27/2024 9:27 AM [facility] Anion Gap 3 3 - 11 LAB CHEMISTRY METHOD 08/27/2024 9:27 AM [facility] Glucose 112(H) 70 - 100 mg/dL LAB CHEMISTRY METHOD 08/27/2024 9:27 AM [facility] BUN 19 5 - 25 mg/dL LAB CHEMISTRY METHOD 08/27/2024 9:27 AM [facility] Creatinine 0.71 0.70 - 1.30 mg/dL LAB CHEMISTRY METHOD 08/27/2024 9:27 AM [facility] eGFR 100 >=60 mL/min/1. 73m2 LAB CHEMISTRY METHOD 08/27/2024 9:27 AM [facility] Comment:Calculation based on the??Chronic Kidney Disease Epidemiology Collaboration (CKD-EPI) equation refit??without adjustment for race. BUN/Creatinine Ratio 26.8 LAB CHEMISTRY METHOD 08/27/2024 9:27 AM [facility] Calcium 9.5 8.5 - 10.5 mg/dL LAB CHEMISTRY METHOD 08/27/2024 9:27 AM [facility] AST (SGOT) 19 10 - 42 unit/L LAB CHEMISTRY METHOD 08/27/2024 9:27 AM [facility] ALT (SGPT) 29 10 - 60 unit/L LAB CHEMISTRY METHOD 08/27/2024 9:27 AM [facility] Alkaline Phosphatase 53 42 - 121 unit/L LAB CHEMISTRY METHOD 08/27/2024 9:27 AM [facility] Total Protein 6.5 6.0 - 8.0 g/dL LAB CHEMISTRY METHOD 08/27/2024 9:27 AM [facility] Albumin 3.2 3.2 - 5.0 g/dL LAB CHEMISTRY METHOD 08/27/2024 9:27 AM [facility] Total Bilirubin 0.6 0.0 - 1.4 mg/dL LAB CHEMISTRY METHOD 08/27/2024 9:27 AM [facility] Blood Venous blood specimen / Unknown Venipuncture / Unknown 08/27/2024 6:34 AM EST 08/27/2024 8:52 AM EST us Prince Le MD LAB BLOOD ORDERABLES Final Resul t [facility] [address] [place] [address], * (ABNORMAL) Complete blood count (08/27/2024 6:34 AM EST) WBC 12.7(H) 4.8 - 10.8 K/mcL LAB HEMETOLOGY METHOD 08/27/2024 9:04 AM [facility] RBC 3.80(L) 4.50 - 5.50 M/mcL LAB HEMETOLOGY METHOD 08/27/2024 9:04 AM [facility] Hemoglobin 10.9(L) 13.5 - 17.5 g/dL LAB HEMETOLOGY METHOD 08/27/2024 9:04 AM [facility] Hematocrit 34.6(L) 42.0 - 54.0 % LAB HEMETOLOGY METHOD 08/27/2024 9:04 AM [facility] MCV 91.5 79.0 - 98.0 FL LAB HEMETOLOGY METHOD 08/27/2024 9:04 AM [facility] MCH 28.8 27.0 - 32.0 pcg LAB HEMETOLOGY METHOD 08/27/2024 9:04 AM [facility] MCHC 31.5(L) 32.0 - 37.0 g/dL LAB HEMETOLOGY METHOD 08/27/2024 9:04 AM [facility] RDW 20.3(H) 11.0 - 15.0 % LAB HEMETOLOGY METHOD 08/27/2024 9:04 AM [facility] Platelets 422(H) 130 - 400 K/mcL LAB HEMETOLOGY METHOD 08/27/2024 9:04 AM [facility] MPV 12.5(H) 7.0 - 11.0 FL LAB HEMETOLOGY METHOD 08/27/2024 9:04 AM [facility] NRBC 0.0 <1.0 % LAB HEMETOLOGY METHOD 08/27/2024 9:04 AM [facility] NRBC Absolute 0.00 <0.10 K/mcL LAB HEMETOLOGY METHOD 08/27/2024 9:04 AM [facility] Blood Venous blood specimen / Unknown Venipuncture / Unknown 08/27/2024 6:34 AM EST 08/27/2024 8:52 AM EST us Prince Le MD LAB BLOOD ORDERABLES Final Resul t [facility] [address] [place] [address], documented in this encounter Visit Diagnoses Diagnosis Type 2 diabetes mellitus without complications (CMS/HCC V24, CMS/HCC V28) documented in this encounter Care Teams Furniture Shampooer Relationship Specialty Start Date End Date Tram Álvarez MD 2 [facility] , [address] [facility] Physician Associ D/B/A: [facility] [place], [place] PCP - General Internal Medicine 03/30/18 documented as of this encounter
--- OUTSIDE RECORDS SUMMARY | 2024-10-22 13:01 | XMS_ITS | Clinical Summary ---
Author Organization [facility] Address [address] [place] [address] Phone Care Team Providers Care Pilot Plant Research Technician Name Role Phone Tram Álvarez MD Primary Care Provider [phone] Encounters Date Type Department Care Team Description 10/22/2024 Lab Requisition [facility] Lab [address] [place] [phone] Preeti Lujan MD Type 2 diabetes mellitus without complications ([facility] V24, [facility] V28) 10/21/2024 Lab Requisition [facility] Lab [address] [facility] [place] [phone] Prince Le MD Type 2 diabetes mellitus without complications ([facility]/HCC V24, [facility] V28) 10/18/2024 Lab Requisition [facility] Lab [address] [place] [phone] Preeti Lujan MD Sepsis, unspecified organism (CMS/[facility] V24, [facility] V28) 10/14/2024 Lab Requisition [facility] Lab [address] [place] [phone] Prince Le MD Type 2 diabetes mellitus without complications ([facility]/HCC V24, CMS/[facility] V28) 10/07/2024 Lab Requisition [facility] Lab [address] [facility] [place] [phone] Prince Le MD Type 2 diabetes mellitus without complications ([facility] V24, [facility] V28) 10/07/2024 Lab Requisition [facility] Lab [address] [place] [address] Prince Le MD Type 2 diabetes mellitus without complications ([facility] V24, [facility] V28) 09/30/2024 Lab Requisition [facility] Lab [address] [place] [address] Prince Le MD Type 2 diabetes mellitus without complications ([facility] V24, [facility] V28) 09/23/2024 Lab Requisition [facility] Lab [address] [place] [phone] Prince Le MD Type 2 diabetes mellitus without complications ([facility] V24, [facility] V28) 09/16/2024 Lab Requisition [facility] Lab [address] [place] [phone] Prince Le MD Type 2 diabetes mellitus without complications ([facility] V24, [facility] V28) 09/09/2024 Lab Requisition [facility] Lab [address] [place] [phone] Prince Le MD Type 2 diabetes mellitus without complications ([facility] V24, [facility] V28) 09/02/2024 Lab Requisition [facility] Lab [address] [place] [phone] Prince Le MD Type 2 diabetes mellitus without complications ([facility] V24, [facility] 08/26/2024 Lab Requisition [facility] Lab [address] [place] [address] Prince Le MD Type 2 diabetes mellitus without complications ([facility] V24, [facility] V28) 08/19/2024 Lab Requisition [facility] Lab [address] [place] [address] Prince Le MD Type 2 diabetes mellitus without complications ([facility] V24, [facility] V28) 08/12/2024 Lab Requisition [facility] Main Lab [address] [facility] [place] [phone] Prince Le MD Type 2 diabetes mellitus without complications ([facility] V24, [facility] V28) 08/05/2024 Lab Requisition [facility] Lab [address] [facility] [place] [phone] Prince Le MD Type 2 diabetes mellitus without complications ([facility] V24, [facility] V28) 07/29/2024 Lab Requisition [facility] Lab [address] [facility] [place] [phone] Prince Le MD Type 2 diabetes mellitus without complications ([facility] V24, [facility] V28) from Last 3 Months Social History [...] M/mcL LAB [facility] Hem[facility] 10.1(L) 13.5 - 17.5 g/dL LAB HEMETOLOGY METHOD 10/18/2024 1:35 PM [facility] LAB Hematocrit 32.3(L) 42.0 - 54.0 % LAB HEMETOLOGY METHOD 10/18/2024 1:35 PM [facility] LAB MCV 96.4 79.0 - 98.0 FL LAB HEMETOLOGY METHOD [facility]24 [facility] MCH 30.1 27.0 - 32.0 pcg LAB HEMETOLOGY METHOD 10/18/2024 1:35 PM [facility] LAB MCHC 31.3(L) 32.0 - 37.0 g/dL LAB HEMETOLOGY METHOD 10/18/2024 1:35 PM [facility] LAB RDW 18.2(H) 11.0 - 15.0 % LAB HEMETOLOGY METHOD 10/18/2024 1:35 PM [facility] LAB Platelets 275 130 - 400 K/mcL LAB HEMETOLOGY METHOD 10/18/2024 1:35 PM EDT [facility] LAB MPV 13.2(H) 7.0 - 11.0 FL LAB HEMETOLOGY METHOD 10/18/2024 1:35 PM EDT [facility] LAB NRBC 0.0 <1.0 % LAB HEMETOLOGY METHOD 10/18/2024 1:35 PM EDT [facility] LAB NRBC Absolute 0.00 <0.10 K/mcL LAB HEMETOLOGY METHOD 10/18/2024 1:35 PM EDT [facility] LAB Blood Venous blood specimen / Unknown Venipuncture / Unknown 10/18/2024 9:03 AM EDT 10/18/2024 11:02 AM EDT Preeti Lujan MD LAB BLOOD ORDERABLES Fin al Result [facility] LAB [address] [place] [address], [place] [phone] * (ABNORMAL) Basic metabolic panel (10/18/2024 9:03 AM EDT) Only the most recent of2 resultswithin the time period is included. Sodium 142 133 - 145 mmol/L LAB CHEMISTRY METHOD 10/18/2024 1:15 PM EDT [facility] LAB Potassium 4.0 3.5 - 5.5 mmol/L LAB CHEMISTRY METHOD 10/18/2024 1:15 PM EDT [facility] LAB Chloride 113(H) 96 - 110 mmol/L LAB CHEMISTRY METHOD 10/18/2024 1:15 PM EDT [facility] LAB CO2 22 21 - 32 mmol/L LAB CHEMISTRY METHOD 10/18/2024 1:15 PM EDT [facility] LAB Anion Gap 7 3 - 11 LAB CHEMISTRY METHOD 10/18/2024 1:15 PM EDT [facility] LAB Glucose 114(H) 70 - 100 mg/dL LAB CHEMISTRY METHOD 10/18/2024 1:15 PM EDT [facility] LAB BUN 12 5 - 25 mg/dL LAB CHEMISTRY METHOD 10/18/2024 1:15 PM EDT [facility] LAB Creatinine 0.58(L) 0.70 - 1.30 mg/dL LAB CHEMISTRY METHOD 10/18/2024 1:15 PM EDT [facility] LAB eGFR 106 >=60 mL/min/1. 73m2 LAB CHEMISTRY METHOD 10/18/2024 1:15 PM EDT [facility] LAB Comment:Calculation based on the??Chronic Kidney Disease Epidemiology Collaboration (CKD-EPI) equation refit??without adjustment for race. BUN/Creatinine Ratio 20.7 LAB CHEMISTRY METHOD 10/18/2024 1:15 PM EDT [facility] LAB Calcium 8.7 8.5 - 10.5 mg/dL LAB CHEMISTRY METHOD 10/18/2024 1:15 PM EDT [facility] LAB Blood Venous blood specimen / Unknown Venipuncture / Unknown 10/18/2024 9:03 AM EDT 10/18/2024 11:02 AM EDT us Preeti Lujan MD LAB BLOOD ORDERABLES Fin al Result [facility] LAB [address] [place] [address], * (ABNORMAL) CBC auto differential (10/07/2024 5:18 AM EDT) WBC 17.5(H) 4.8 - 10.8 K/[facility] LAB HEMETOLOGY METHOD 10/07/2024 9:32 AM EDT [facility] LAB RBC 3.80(L) 4.50 - 5.50 M/[facility] LAB HEMETOLOGY METHOD 10/07/2024 9:32 AM EDT [facility] LAB Hemoglobin 11.2(L) 13.5 - [...] LAB HEMETOLOGY METHOD 10/07/2024 9:32 AM EDT [facility] LAB Eosinophils Relative 2.2 % LAB HEMETOLOGY METHOD 10/07/2024 9:32 AM EDT [facility] Basophils Relative 0.3 % LAB HEMETOLOGY METHOD 10/07/2024 9:32 AM EDT [facility] Immature Granulocytes Relative 0.6 % LAB HEMETOLOGY METHOD 10/07/2024 9:32 AM EDT [facility] Neutrophils Absolute 14.41(H) 1.50 - 7.00 K/mcL LAB HEMETOLOGY METHOD 10/07/2024 9:32 AM EDT [facility] Lymphocytes Absolute 1.74 1.00 - 5.00 K/mcL LAB HEMETOLOGY METHOD 10/07/2024 9:32 AM EDT [facility] Monocytes Absolute 0.80 0.20 - 1.00 K/mcL LAB HEMETOLOGY METHOD 10/07/2024 9:32 AM EDT [facility] LAB Eosinophils Absolute 0.38 0.00 - 0.50 K/mcL LAB HEMETOLOGY METHOD 10/07/2024 9:32 AM EDT [facility] LAB Basophils Absolute 0.05 0.00 - 0.20 K/mcL LAB HEMETOLOGY METHOD 10/07/2024 9:32 AM EDT [facility] LAB Immature Granulocytes Absolute 0.10(H) 0.00 - 0.03 K/mcL LAB HEMETOLOGY METHOD 10/07/2024 9:32 AM [facility] LAB Blood Venous blood specimen / Unknown Venipuncture / Unknown 10/07/2024 5:18 AM EDT 10/07/2024 8:56 AM EDT us Prince Le MD LAB BLOOD ORDERABLES Final Resul t [facility] LAB [address] [place] [address], [place] [phone] * (ABNORMAL) C-reactive protein (10/01/2024 8:01 AM EDT) Only the most recent of9 resultswithin the time period is included. [facility] C-Reactive Protein 0.73(H) <=0.50 mg/dL LAB CHEMISTRY METHOD 10/01/2024 11:57 AM EDT [facility] Blood Venous blood specimen / Unknown Venipuncture / Unknown 10/01/2024 8:01 AM EDT 10/01/2024 10:24 AM EDT Prince Le MD LAB BLOOD ORDERABLES Final Resul t [facility] [address] [place] [address], [place] [phone] * (ABNORMAL) Comprehensive metabolic panel (10/01/2024 8:01 AM EDT) Only the most recent of9 resultswithin the time period is included. [facility] Sodium 134 133 - 145 mmol/L [...] t [facility] [address] [place] [address], [place] [phone] * (ABNORMAL) Lipid panel with reflex to direct LDL (08/27/2024 6:34 AM EST) Cholesterol 96 0 - 200 mg/dL LAB CHEMISTRY METHOD 08/27/2024 9:27 AM EST [facility] Triglycerides 249(H) 0 - 150 mg/dL LAB CHEMISTRY METHOD 08/27/2024 9:27 AM [facility] LAB HDL 30(L) >=40 mg/dL LAB CHEMISTRY METHOD 08/27/2024 9:27 AM [facility] LAB LDL Calculated 16 0 - 100 mg/dL LAB CHEMISTRY METHOD 08/27/2024 9:27 AM EST [facility] VLDL Cholesterol Maikel 49.8 mg/dL LAB CHEMISTRY METHOD 08/27/2024 9:27 AM EST [facility] Non HDL Chol. (LDL+VLDL) 66 <145 mg/dL LAB CHEMISTRY METHOD 08/27/2024 9:27 AM [facility] LAB Chol/HDL Ratio 3.2 0.0 - 4.4 LAB CHEMISTRY METHOD 08/27/2024 9:27 AM [facility] LAB Blood Venous blood specimen / Unknown Venipuncture / Unknown 08/27/2024 6:34 AM EST 08/27/2024 8:52 AM EST Prince Le MD LAB BLOOD ORDERABLES Final Resul t [facility] LAB [address] [place] [address], [place] [phone] from Last 3 Months Insurance [employer] Member Subscriber Plan / Payer (Ef fective 2023-Present) Name:Carlos Cabrera Relation to Subscriber:Self Name:Marco Cabrerao A Payer ID:[id number] Group ID:[id number] Type:Not on file Address: [facility] [address] [id number] Care Teams Pilot Plant Research Technician Relationship Specialty Start Date End Date Tram Álvarez MD [address] [place] [address] , [address] Physician Associ D/B/A: [facility] JAS Duque PCP - General Internal Medicine 03/30/18
--- OUTSIDE RECORDS SUMMARY | 2024-10-22 13:01 | XMS_ITS | Encounter Summary ---
Author Organization [facility] Address [address] [place] [address] Care Team Providers Care Lead Injection Mold Technician Name Role Phone Tram Álvarez MD Primary Care Provider [phone] Encounter Details Date Type Department Care Team (Late st Contact Info) Description 08/12/2024 Lab Requisition [facility] Lab [address] [place] [address] Prince Le MD 38 [facility] [address] [place], [address] Type 2 diabetes mellitus without complications [...] Resul t [facility] [address] [place] [address], * (ABNORMAL) Comprehensive metabolic panel (08/13/2024 7:38 [...] Resul t [facility] [address] [place] [address], * (ABNORMAL) Complete blood count (08/13/2024 7:30 [...] BLOOD ORDERABLES Final [facility]ul t [facility] [address] [place] [address], documented in this encounter Visit Diagnoses Diagnosis Type 2 diabetes mellitus without complications (CMS/HCC V24, CMS/HCC V28) documented in this encounter Care Teams Lead Injection Mold Technician Relationship Specialty Start Date End Date Tram Álvarez MD 2 [facility] , [address] [facility] Physician Associ D/B/A: [facility] JAS Duque PCP - General Internal Medicine 03/30/18 documented as of this encounter
--- OUTSIDE RECORDS SUMMARY | 2024-10-22 13:01 | XMS_ITS | Encounter Summary ---
Author Organization [facility] Address [address] [place] [address] Care Team Providers Care Track Worker Name Role Phone Tram Álvarez MD Primary Care Provider [phone] Encounter Details Date Type Department Care Team (Late st Contact Info) Description 10/22/2024 Lab Requisition [facility] - [facility] Lab [address] [facility] [place] [address] Preeti Lujan MD [address] [phone] Type 2 diabetes mellitus without complications (CMS/HCC V24, CMS/[facility] V28) Social History Tobacco Use Types Packs/Day [...] 2 diabetes mellitus without complications (CMS/HCC V24, CMS/[facility] V28) documented in this encounter Care Teams Track Worker Relationship Specialty Start Date End Date Tram Álvarez MD [address] [place] [address] , [address] Physician Associ D/B/A: [facility] [place], [place] PCP - General Internal Medicine 03/30/18 documented as of this encounter
--- OUTSIDE RECORDS SUMMARY | 2024-10-22 13:01 | XMS_ITS | Encounter Summary ---
Author Organization [facility] Address [address] [place] [address] Care Team Providers Care Plate Preparer Name Role Phone Tram Álvarez MD Primary Care Provider [phone] Encounter Details Date Type Department Care Team (Late st Contact Info) Description 09/23/2024 Lab Requisition [facility] Lab [address] [facility] [place] [address] Prince Le MD 38 [facility] [address] [place], [address] Type 2 diabetes mellitus without complications [...] LAB CHEMISTRY METHOD 09/24/2024 12:40 PM EDT [facility] LAB Blood Venous blood specimen / Unknown Venipuncture / Unknown 09/24/2024 5:45 AM EDT 09/24/2024 9:53 AM EDT us Prince Le MD LAB BLOOD ORDERABLES Final Resul t [facility] LAB [address] [place] [address], [place] [phone] * (ABNORMAL) Comprehensive metabolic panel (09/24/2024 5:45 AM EDT) Sodium 140 133 - 145 mmol/L LAB CHEMISTRY METHOD 09/24/2024 12:42 PM [facility] Potassium 4.8 3.5 - 5.5 mmol/L LAB CHEMISTRY METHOD 09/24/2024 12:42 PM [facility] Chloride 107 96 - 110 mmol/L LAB CHEMISTRY METHOD 09/24/2024 12:42 PM [facility] CO2 27 21 - 32 mmol/L LAB CHEMISTRY METHOD 09/24/2024 12:42 PM [facility] Anion Gap 6 3 - 11 LAB CHEMISTRY METHOD 09/24/2024 12:42 PM [facility] Glucose 81 70 - 100 mg/dL LAB CHEMISTRY METHOD 09/24/2024 12:42 PM [facility] BUN 18 5 - 25 mg/dL LAB CHEMISTRY METHOD 09/24/2024 12:42 PM [facility] Creatinine 0.80 0.70 - 1.30 mg/dL LAB CHEMISTRY METHOD 09/24/2024 12:42 PM [facility] LAB eGFR 96 >=60 mL/min/1. 73m2 LAB CHEMISTRY METHOD 09/24/2024 12:42 PM [facility] Comment:Calculation based on the??Chronic Kidney Disease Epidemiology Collaboration (CKD-EPI) equation refit??without adjustment for race. BUN/Creatinine Ratio 22.5 LAB CHEMISTRY METHOD 09/24/2024 12:42 PM EDT [facility] Calcium 8.9 8.5 - 10.5 mg/dL LAB CHEMISTRY METHOD 09/24/2024 12:42 PM [facility] AST (SGOT) 15 10 - 42 unit/L LAB CHEMISTRY METHOD 09/24/2024 12:42 PM [facility] ALT (SGPT) 16 10 - 60 unit/L LAB CHEMISTRY METHOD 09/24/2024 12:42 PM [facility] Alkaline Phosphatase 51 42 - 121 unit/L LAB CHEMISTRY METHOD 09/24/2024 12:42 PM [facility] Total Protein 6.1 6.0 - 8.0 g/dL LAB CHEMISTRY METHOD 09/24/2024 12:42 PM [facility] Albumin 2.7(L) 3.2 - 5.0 g/dL LAB CHEMISTRY METHOD 09/24/2024 12:42 PM [facility] Total Bilirubin 0.4 0.0 - 1.4 mg/dL LAB CHEMISTRY METHOD 09/24/2024 12:42 PM [facility] Blood Venous blood specimen / Unknown Venipuncture / Unknown 09/24/2024 5:45 AM EDT 09/24/2024 9:53 AM EDT us Prince Le MD LAB BLOOD ORDERABLES Final Resul t [facility] [address] [place] [address], * (ABNORMAL) Complete blood count (09/24/2024 5:45 AM EDT) WBC 7.3 4.8 - 10.8 K/mcL LAB HEMETOLOGY METHOD 09/24/2024 10:05 AM [facility] RBC 3.70(L) 4.50 - 5.50 M/mcL LAB HEMETOLOGY METHOD 09/24/2024 10:05 AM [facility] Hemoglobin 11.0(L) 13.5 - 17.5 g/dL LAB HEMETOLOGY METHOD 09/24/2024 10:05 AM [facility] Hematocrit 35.4(L) 42.0 - 54.0 % LAB HEMETOLOGY METHOD 09/24/2024 10:05 AM [facility] MCV 96.2 79.0 - 98.0 FL LAB HEMETOLOGY METHOD 09/24/2024 10:05 AM [facility] MCH 29.9 27.0 - 32.0 pcg LAB HEMETOLOGY METHOD 09/24/2024 10:05 AM [facility] MCHC 31.1(L) 32.0 - 37.0 g/dL LAB HEMETOLOGY METHOD 09/24/2024 10:05 AM [facility] RDW 16.4(H) 11.0 - 15.0 % LAB HEMETOLOGY METHOD 09/24/2024 10:05 AM [facility] Platelets 480(H) 130 - 400 K/mcL LAB HEMETOLOGY METHOD 09/24/2024 10:05 AM [facility] MPV 12.1(H) 7.0 - 11.0 FL LAB HEMETOLOGY METHOD 09/24/2024 10:05 AM [facility] NRBC 0.0 <1.0 % LAB HEMETOLOGY METHOD 09/24/2024 10:05 AM [facility] NRBC Absolute 0.00 <0.10 K/mcL LAB HEMETOLOGY METHOD 09/24/2024 10:05 AM [facility] Blood Venous blood specimen / Unknown Venipuncture / Unknown 09/24/2024 5:45 AM EDT 09/24/2024 9:53 AM EDT us Prince Le MD LAB BLOOD ORDERABLES Final Resul t [facility] ([facility]) [facility] [address] [place] [address], documented in this encounter Visit Diagnoses Diagnosis Type 2 diabetes mellitus without complications (CMS/HCC V24, CMS/HCC V28) documented in this encounter Care Teams Plate Preparer Relationship Specialty Start Date End Date Tram Álvarez MD 2 [facility] , [address] Physician Associ D/B/A: [facility] [place] PCP - General Internal Medicine 03/30/18 documented as of this encounter
--- OUTSIDE RECORDS SUMMARY | 2024-10-22 13:01 | XMS_ITS | Encounter Summary ---
Author Organization [facility] [address] Address [address] [place] [address] Care Team Providers Care Steward/Stewardess Bath Name Role Phone Tram Álvarez MD Primary Care Provider [phone] Encounter Details Date Type Department Care Team (Late st Contact Info) Description 07/22/2024 Lab Requisition [facility] - Main Lab [address] [place] [address] Prince Le MD 38 [facility] [address] [place], [address] Type 2 diabetes mellitus without complications [...] mg/dL LAB CHEMISTRY METHOD 07/23/2024 10:47 AM [facility] Blood Venous blood specimen / Unknown Venipuncture / Unknown 07/23/2024 6:52 AM EST 07/23/2024 9:26 AM EST us Prince Le MD LAB BLOOD ORDERABLES Final Resul t [facility] LAB [address] [place] [address], * (ABNORMAL) Comprehensive metabolic panel (07/23/2024 6:52 AM EST) Sodium 137 133 - 145 mmol/L LAB CHEMISTRY METHOD 07/23/2024 10:47 AM [facility] Potassium 5.3 3.5 - 5.5 mmol/L LAB CHEMISTRY METHOD 07/23/2024 10:47 AM [facility] Chloride 102 96 - 110 mmol/L LAB CHEMISTRY METHOD 07/23/2024 10:47 AM [facility] LAB CO2 28 21 - 32 mmol/L LAB CHEMISTRY METHOD 07/23/2024 10:47 AM [facility] LAB Anion Gap 7 3 - 11 LAB CHEMISTRY METHOD 07/23/2024 10:47 AM [facility] Glucose 78 70 - 100 mg/dL LAB CHEMISTRY METHOD 07/23/2024 10:47 AM [facility] BUN 39(H) 5 - 25 mg/dL LAB CHEMISTRY METHOD 07/23/2024 10:47 AM [facility] Creatinine 1.58(H) 0.70 - 1.30 mg/dL LAB CHEMISTRY METHOD 07/23/2024 10:47 AM [facility] LAB eGFR 47(L) >=60 mL/min/1. 73m2 LAB CHEMISTRY METHOD 07/23/2024 10:47 AM [facility] LAB Comment:Calculation based on the??Chronic Kidney Disease Epidemiology Collaboration (CKD-EPI) equation refit??without adjustment for race. BUN/Creatinine Ratio 24.7 LAB CHEMISTRY METHOD 07/23/2024 10:47 AM [facility] LAB Calcium 9.5 8.5 - 10.5 mg/dL LAB CHEMISTRY METHOD 07/23/2024 10:47 AM [facility] LAB AST (SGOT) 25 10 - 42 unit/L LAB CHEMISTRY METHOD 07/23/2024 10:47 AM [facility] LAB ALT (SGPT) 26 10 - 60 unit/L LAB CHEMISTRY METHOD 07/23/2024 10:47 AM [facility] LAB Alkaline Phosphatase 68 42 - 121 unit/L LAB CHEMISTRY METHOD 07/23/2024 10:47 AM [facility] Total Protein 6.9 6.0 - 8.0 g/dL LAB CHEMISTRY METHOD 07/23/2024 10:47 AM [facility] Albumin 3.5 3.2 - 5.0 g/dL LAB CHEMISTRY METHOD 07/23/2024 10:47 AM [facility] Total Bilirubin 0.4 0.0 - 1.4 mg/dL LAB CHEMISTRY METHOD 07/23/2024 10:47 AM [facility] LAB Blood Venous blood specimen / Unknown Venipuncture / Unknown 07/23/2024 6:52 AM EST 07/23/2024 9:26 AM EST us Prince Le MD LAB BLOOD ORDERABLES Final Resul t [facility] LAB [address] [place] [address], * (ABNORMAL) Complete blood count (07/23/2024 6:52 AM EST) WBC 9.2 4.8 - 10.8 K/mcL LAB HEMETOLOGY METHOD 07/23/2024 10:13 AM [facility] RBC 4.90 4.50 - 5.50 M/mcL LAB HEMETOLOGY METHOD 07/23/2024 10:13 AM [facility] Hemoglobin 13.6 13.5 - 17.5 g/dL LAB HEMETOLOGY METHOD 07/23/2024 10:13 AM [facility] LAB Hematocrit 41.2(L) 42.0 - 54.0 % LAB HEMETOLOGY METHOD 07/23/2024 10:13 AM [facility] LAB MCV 83.7 79.0 - 98.0 FL LAB HEMETOLOGY METHOD 07/23/2024 10:13 AM [facility] LAB MCH 27.6 27.0 - 32.0 pcg LAB HEMETOLOGY METHOD 07/23/2024 10:13 AM [facility] LAB MCHC 33.0 32.0 - 37.0 g/dL LAB HEMETOLOGY METHOD 07/23/2024 10:13 AM [facility] LAB RDW 19.0(H) 11.0 - 15.0 % LAB HEMETOLOGY METHOD 07/23/2024 10:13 AM [facility] LAB Platelets 364 130 - 400 K/mcL LAB HEMETOLOGY METHOD 07/23/2024 10:13 AM [facility] LAB MPV 12.2(H) 7.0 - 11.0 FL LAB HEMETOLOGY METHOD 07/23/2024 10:13 AM [facility] LAB NRBC 0.0 <1.0 % LAB HEMETOLOGY METHOD 07/23/2024 10:13 AM [facility] LAB NRBC Absolute 0.00 <0.10 K/mcL LAB HEMETOLOGY METHOD 07/23/2024 10:13 AM [facility] Blood Venous blood specimen / Unknown Venipuncture / Unknown 07/23/2024 6:52 AM EST 07/23/2024 9:26 AM EST us Prince Le MD LAB BLOOD ORDERABLES Final Resul t [facility] [address] [place] [address], documented in this encounter Visit Diagnoses Diagnosis Type 2 diabetes mellitus without complications (CMS/HCC V24, CMS/HCC V28) documented in this encounter Care Teams Steward/Stewardess Bath Relationship Specialty Start Date End Date Tram Álvarez MD 2 [facility] , [address] [facility] Physician Associ D/B/A: [facility] JAS Duque PCP - General Internal Medicine 03/30/18 documented as of this encounter
--- OUTSIDE RECORDS SUMMARY | 2024-10-22 13:01 | XMS_ITS | Encounter Summary ---
Author Organization [facility] Address [address] [place] [address] Care Team Providers Care Clinical Informatics Educator Name Role Phone Tram Álvarez MD Primary Care Provider [phone] Encounter Details Date Type Department Care Team (Late st Contact Info) Description 09/16/2024 Lab Requisition [facility] - Main Lab 299 [facility] [place] [address] Prince Le MD 38 [facility] [address] [place], [address] Type 2 diabetes mellitus without complications [...] mg/dL LAB CHEMISTRY METHOD 09/17/2024 11:32 AM [facility] LAB Blood Venous blood specimen / Unknown Venipuncture / Unknown 09/17/2024 8:06 AM EDT 09/17/2024 10:22 AM EDT us Prince Le MD LAB BLOOD ORDERABLES Final Resul t [facility] [address] [place] [address], [place] [phone] * (ABNORMAL) Comprehensive metabolic panel (09/17/2024 8:06 AM EDT) Sodium 139 133 - 145 mmol/L LAB CHEMISTRY METHOD 09/17/2024 11:27 AM [facility] LAB Potassium 4.6 3.5 - 5.5 mmol/L LAB CHEMISTRY METHOD 09/17/2024 11:27 AM [facility] LAB Chloride 103 96 - 110 mmol/L LAB CHEMISTRY METHOD 09/17/2024 11:27 AM [facility] LAB CO2 30 21 - 32 mmol/L LAB CHEMISTRY METHOD 09/17/2024 11:27 AM [facility] LAB Anion Gap 6 3 - 11 LAB CHEMISTRY METHOD 09/17/2024 11:27 AM [facility] LAB Glucose 93 70 - 100 mg/dL LAB CHEMISTRY METHOD 09/17/2024 11:27 AM [facility] LAB BUN 21 5 - 25 mg/dL LAB CHEMISTRY METHOD 09/17/2024 11:27 AM [facility] LAB Creatinine 0.97 0.70 - 1.30 mg/dL LAB CHEMISTRY METHOD 09/17/2024 11:27 AM [facility] LAB eGFR 85 >=60 mL/min/1. 73m2 LAB CHEMISTRY METHOD 09/17/2024 11:27 AM [facility] LAB Comment:Calculation based on the??Chronic Kidney Disease Epidemiology Collaboration (CKD-EPI) equation refit??without adjustment for race. BUN/Creatinine Ratio 21.6 LAB CHEMISTRY METHOD 09/17/2024 11:27 AM [facility] LAB Calcium 9.0 8.5 - 10.5 mg/dL LAB CHEMISTRY METHOD 09/17/2024 11:27 AM [facility] LAB AST (SGOT) 20 10 - 42 unit/L LAB CHEMISTRY METHOD 09/17/2024 11:27 AM [facility] LAB ALT (SGPT) 19 10 - 60 unit/L LAB CHEMISTRY METHOD 09/17/2024 11:27 AM [facility] LAB Alkaline Phosphatase 67 42 - 121 unit/L LAB CHEMISTRY METHOD 09/17/2024 11:27 AM [facility] LAB Total Protein 6.1 6.0 - 8.0 g/dL LAB CHEMISTRY METHOD 09/17/2024 11:27 AM [facility] LAB Albumin 2.8(L) 3.2 - 5.0 g/dL LAB CHEMISTRY METHOD 09/17/2024 11:27 AM [facility] LAB Total Bilirubin 0.4 0.0 - 1.4 mg/dL LAB CHEMISTRY METHOD 09/17/2024 11:27 AM [facility] LAB Blood Venous blood specimen / Unknown Venipuncture / Unknown 09/17/2024 8:06 AM EDT 09/17/2024 10:22 AM EDT us Prince Le MD LAB BLOOD ORDERABLES Final Resul t [facility] [address] [place] [address], * (ABNORMAL) Complete blood count (09/17/2024 8:06 AM EDT) WBC 9.2 4.8 - 10.8 K/mcL LAB HEMETOLOGY METHOD 09/17/2024 10:35 AM [facility] LAB RBC 3.80(L) 4.50 - 5.50 M/mcL LAB HEMETOLOGY METHOD 09/17/2024 10:35 AM [facility] LAB Hemoglobin 11.3(L) 13.5 - 17.5 g/dL LAB HEMETOLOGY METHOD 09/17/2024 10:35 AM [facility] LAB Hematocrit 35.1(L) 42.0 - 54.0 % LAB HEMETOLOGY METHOD 09/17/2024 10:35 AM [facility] LAB MCV 93.6 79.0 - 98.0 FL LAB HEMETOLOGY METHOD 09/17/2024 10:35 AM [facility] LAB MCH 30.1 27.0 - 32.0 pcg LAB HEMETOLOGY METHOD 09/17/2024 10:35 AM [facility] LAB MCHC 32.2 32.0 - 37.0 g/dL LAB HEMETOLOGY METHOD 09/17/2024 10:35 AM [facility] LAB RDW 17.5(H) 11.0 - 15.0 % LAB HEMETOLOGY METHOD 09/17/2024 10:35 AM [facility] LAB Platelets 352 130 - 400 K/mcL LAB HEMETOLOGY METHOD 09/17/2024 10:35 AM [facility] LAB MPV 11.5(H) 7.0 - 11.0 FL LAB HEMETOLOGY METHOD 09/17/2024 10:35 AM [facility] LAB NRBC 0.0 <1.0 % LAB HEMETOLOGY METHOD 09/17/2024 10:35 AM [facility] LAB NRBC Absolute 0.00 <0.10 K/[facility] LAB HEMETOLOGY METHOD 09/17/2024 10:35 AM EDT [facility] Blood Venous blood specimen / Unknown Venipuncture / Unknown 09/17/2024 8:06 AM EDT 09/17/2024 10:22 AM EDT us Prince Le MD LAB BLOOD ORDERABLES Final Resul t [facility] LAB [address] [place] [address], documented in this encounter Visit Diagnoses Diagnosis Type 2 diabetes mellitus without complications (CMS/HCC V24, CMS/HCC V28) documented in this encounter Care Teams Clinical Informatics Educator Relationship Specialty Start Date End Date Tram Álvarez MD 2 [facility] , [address] Physician Associ D/B/A: [facility] [place], [place] PCP - General Internal Medicine 03/30/18 documented as of this encounter
--- OUTSIDE RECORDS SUMMARY | 2024-10-22 13:01 | XMS_ITS | Encounter Summary ---
Author Organization [facility] Address [address] [place] [address] Care Team Providers Care Software Designer Name Role Phone Tram Álvarez MD Primary Care Provider [phone] Encounter Details Date Type Department Care Team (Late st Contact Info) Description 10/21/2024 Lab Requisition [facility] - Main Lab 299 [facility] [place] [address] Prince Le MD 38 [facility] [address] [place], [address] Type 2 diabetes mellitus without complications [...] V28) documented in this encounter Care Teams Software Designer Relationship Specialty Start Date End Date Tram Álvarez MD [address] [place] [address] , [address] [facility] Physician Associ D/B/A: [facility] [place], [place] PCP - General Internal Medicine 03/30/18 documented as of this encounter
--- OUTSIDE RECORDS SUMMARY | 2024-10-22 13:01 | XMS_ITS | Encounter Summary ---
Author Organization [facility] Address [address] [place] [address] Care Team Providers Care Revenue Stamp Clerk Name Role Phone Tram Álvarez MD Primary Care Provider [phone] Encounter Details Date Type Department Care Team (Late st Contact Info) Description 09/02/[address] [facility] - Main Lab [address] [place] [address] Prince Le MD 38 [facility] [address] [place], [address] Type 2 diabetes mellitus without complications [...] mg/dL LAB CHEMISTRY METHOD 09/03/2024 10:05 AM [facility] LAB Blood Venous blood specimen / Unknown Venipuncture / Unknown 09/03/2024 6:35 AM EST 09/03/2024 7:52 AM EST us Prince Le MD LAB BLOOD ORDERABLES Final Resul t [facility] [address] [place] [address], * (ABNORMAL) Comprehensive metabolic panel (09/03/2024 6:35 AM EST) Sodium 138 133 - 145 mmol/L LAB CHEMISTRY METHOD 09/03/2024 9:59 AM [facility] LAB Potassium 4.2 3.5 - 5.5 mmol/L LAB CHEMISTRY METHOD 09/03/2024 9:59 AM [facility] LAB Chloride 105 96 - 110 mmol/L LAB CHEMISTRY METHOD 09/03/2024 9:59 AM [facility] LAB CO2 28 21 - 32 mmol/L LAB CHEMISTRY METHOD 09/03/2024 9:59 AM [facility] LAB Anion Gap 5 3 - 11 LAB CHEMISTRY METHOD 09/03/2024 9:59 AM [facility] LAB Glucose 120(H) 70 - 100 mg/dL LAB CHEMISTRY METHOD 09/03/2024 9:59 AM [facility] LAB BUN 23 5 - 25 mg/dL LAB CHEMISTRY METHOD 09/03/2024 9:59 AM [facility] LAB Creatinine 0.88 0.70 - 1.30 mg/dL LAB CHEMISTRY METHOD 09/03/2024 9:59 AM [facility] LAB eGFR 94 >=60 mL/min/1. 73m2 LAB CHEMISTRY METHOD 09/03/2024 9:59 AM [facility] LAB Comment:Calculation based on the??Chronic Kidney Disease Epidemiology Collaboration (CKD-EPI) equation refit??without adjustment for race. BUN/Creatinine Ratio 26.1 LAB CHEMISTRY METHOD 09/03/2024 9:59 AM [facility] LAB Calcium 9.1 8.5 - 10.5 mg/dL LAB CHEMISTRY METHOD 09/03/2024 9:59 AM [facility] LAB AST (SGOT) 23 10 - 42 unit/L LAB CHEMISTRY METHOD 09/03/2024 9:59 AM [facility] LAB ALT (SGPT) 29 10 - 60 unit/L LAB CHEMISTRY METHOD 09/03/2024 9:59 AM [facility] LAB Alkaline Phosphatase 59 42 - 121 unit/L LAB CHEMISTRY METHOD 09/03/2024 9:59 AM [facility] LAB Total Protein 5.9(L) 6.0 - 8.0 g/dL LAB CHEMISTRY METHOD 09/03/2024 9:59 AM [facility] LAB Albumin 3.1(L) 3.2 - 5.0 g/dL LAB CHEMISTRY METHOD 09/03/2024 9:59 AM [facility] LAB Total Bilirubin 0.4 0.0 - 1.4 mg/dL LAB CHEMISTRY METHOD 09/03/2024 9:59 AM [facility] LAB Blood Venous blood specimen / Unknown Venipuncture / Unknown 09/03/2024 6:35 AM EST 09/03/2024 7:52 AM EST us Prince Le MD LAB BLOOD ORDERABLES Final Resul t [facility] LAB [address] [place] [address], * (ABNORMAL) Complete blood count (09/03/2024 6:35 AM EST) WBC 9.2 4.8 - 10.8 K/mcL LAB HEMETOLOGY METHOD 09/03/2024 8:43 AM [facility] LAB RBC 3.70(L) 4.50 - 5.50 M/mcL LAB HEMETOLOGY METHOD 09/03/2024 8:43 AM [facility] Hemoglobin 10.8(L) 13.5 - 17.5 g/dL LAB HEMETOLOGY METHOD 09/03/2024 8:43 AM [facility] LAB Hematocrit 34.4(L) 42.0 - 54.0 % LAB HEMETOLOGY METHOD 09/03/2024 8:43 AM [facility] LAB MCV 93.5 79.0 - 98.0 FL LAB HEMETOLOGY METHOD 09/03/2024 8:43 AM [facility] LAB MCH 29.3 27.0 - 32.0 pcg LAB HEMETOLOGY METHOD 09/03/2024 8:43 AM [facility] LAB MCHC 31.4(L) 32.0 - 37.0 g/dL LAB HEMETOLOGY METHOD 09/03/2024 8:43 AM [facility] LAB RDW 20.0(H) 11.0 - 15.0 % LAB HEMETOLOGY METHOD 09/03/2024 8:43 AM [facility] LAB Platelets 333 130 - 400 K/mcL LAB HEMETOLOGY METHOD 09/03/2024 8:43 AM [facility] LAB MPV 12.3(H) 7.0 - 11.0 FL LAB HEMETOLOGY METHOD 09/03/2024 8:43 AM [facility] LAB NRBC 0.0 <1.0 % LAB HEMETOLOGY METHOD 09/03/2024 8:43 AM [facility] LAB NRBC Absolute 0.00 <0.10 K/mcL LAB HEMETOLOGY METHOD 09/03/2024 8:43 AM [facility] LAB Blood Venous blood specimen / Unknown Venipuncture / Unknown 09/03/2024 6:35 AM EST 09/03/2024 7:52 AM EST us Prince Le MD LAB BLOOD ORDERABLES Final Resul t [facility] LAB [address] [place] [address], [place] [phone] documented in this encounter Visit Diagnoses Diagnosis Type 2 diabetes mellitus without complications (CMS/HCC V24, CMS/HCC V28) documented in this encounter Care Teams Revenue Stamp Clerk Relationship Specialty Start Date End Date Tram Álvarez MD 2 [facility] , [address] [facility] Physician Associ D/B/A: [facility] JAS Duque PCP - General Internal Medicine 03/30/18 documented as of this encounter
--- OUTSIDE RECORDS SUMMARY | 2024-10-22 13:01 | XMS_ITS | Clinical Summary ---
Author Organization [facility] Address [address] [place] [address] Care Team Providers Care Oncology Transplant Network Manager Name Role Phone Tram Royal MD [...] age to complete this topic Care Teams Oncology Transplant Network Manager Relationship Specialty Start Date End Date Tram Royal MD 2 [facility] , [address] [facility] Physician Associ D/B/A: [facility] [place] [address] PCP - General Internal Medicine 03/30/18
== END 2024-10-22 11:14 | disposition home or self-care (01) ==
LOC: HO.HOSX 11:13
PROVIDERS: PCP Internal Medicine; Visit Provider Physician Assistant
DX: G95.9 Disease of spinal cord, unspecified (principal)
CPT/HCPCS: 99212

== ENCOUNTER 2024-10-22 11:13 | Outpatient (AMB) | payer OTHER, SELFPAY ==
--- NOTE | 2024-10-22 11:53 | A.SPINEOV_ITS ---
Intake Visit Reasons: 2nd post op Intake Note: Mr. Cabrera is here today for his 2nd post op Customer Leader Required: No Allergies Penicillins [PENICILLINS] Allergy (Severe, Verified 10/22/24 11:54) RASH jay pepper Allergy (Intermediate, Verified 10/22/24 11:54) Rash pepper (genus Capsicum) Adverse Reaction (Intermediate, Verified 10/22/24 11:54) rashes Assessment & Plan Assessment & Plan (1) Cervical myelopathy: Code(s): G95.9 - Disease of spinal cord, unspecified Category: Medical Plan Mr Cabrera is 2 months out from the C4-5, C5-6 anterior cervical diskectomy and fusion for severe progressive quadriparesis and myelopathy. Unfortunately he landed back in the hospital last week with what sounds like pneumonia, sepsis. He has been transferred back out to rehab now in his going to start back on his therapy regimen. Unfortunately right after surgery he was not getting much in the way of therapy immediately. He tells me that he feels better in terms of his upper extremity strength but he is still not walking. On my exam he is still quite weak with about 3/5 function of his right hand grasp, right biceps triceps and deltoid is 2/5. His left upper extremities about 4-5 diffusely. He has 2/5 iliopsoas and about 4-5 distally in the plantar and dorsiflexion muscle groups. His wound is healed up well. They did a CT scan last week in the hospital which shows excellent placement of the hardware. I spoke to him and his sister Lydia who was on the phone explained to them that he is still in the process of recovery and that these medical issues have gotten in the way of really seeing how much improvement he could get. Hopefully he can stand some sort of stable trajectory here where he can get some consistent rehab that will make some progress with his quadriparesis but really this will be up to time and healing of the spinal cord which may or may not occur with time. I would like to see him back in 3 months with x-rays and we can re-evaluate. Renan Isabel MD, PhD [facility] Orders: Orders XR cervical spine 4V Today G95.9 - Disease of spinal cord, unspecified Coding Level of Care Code Global (04017) Diagnoses Cervical myelopathy G95.9
--- OUTSIDE RECORDS SUMMARY | 2024-10-22 12:19 | XMS_ITS | Encounter Summary ---
Author Organization [facility] Address [address] [place] [address] Care Team Providers Care Guide Domestic Tour Name Role Phone Tram Álvarez MD Primary Care Provider [phone] Encounter Details Date Type Department Care Team (Late st Contact Info) Description 10/07/2024 Lab Requisition [facility] - Main Lab [address] [place] [address] Prince Le MD 38 [facility] [address], [address] Type 2 diabetes mellitus without complications [...] AM EDT) WBC 17.5(H) 4.8 - 10.8 K/[facility] LAB HEMETOLOGY METHOD 10/07/2024 9:32 AM [facility] LAB RBC 3.80(L) 4.50 - 5.50 M/mcL LAB HEMETOLOGY METHOD 10/07/2024 9:32 AM [facility] LAB Hemoglobin 11.2(L) 13.5 - 17.5 g/dL LAB HEMETOLOGY METHOD 10/07/2024 9:32 AM [facility] LAB Hematocrit 35.1(L) 42.0 - 54.0 % LAB HEMETOLOGY METHOD 10/07/2024 9:32 AM [facility] LAB MCV 92.4 79.0 - 98.0 FL LAB HEMETOLOGY METHOD 10/07/2024 9:32 AM [facility] LAB MCH 29.5 27.0 - 32.0 pcg LAB HEMETOLOGY METHOD 10/07/2024 9:32 AM [facility] LAB MCHC 31.9(L) 32.0 - 37.0 g/dL LAB HEMETOLOGY METHOD 10/07/2024 9:32 AM [facility] LAB RDW 16.6(H) 11.0 - 15.0 % LAB HEMETOLOGY METHOD 10/07/2024 9:32 AM [facility] LAB Platelets 230 130 - 400 K/mcL LAB HEMETOLOGY METHOD 10/07/2024 9:32 AM [facility] LAB MPV 13.0(H) 7.0 - 11.0 FL LAB HEMETOLOGY METHOD 10/07/2024 9:32 AM [facility] LAB NRBC 0.0 <1.0 % LAB HEMETOLOGY METHOD 10/07/2024 9:32 AM [facility] LAB NRBC Absolute 0.00 <0.10 K/mcL LAB HEMETOLOGY METHOD 10/07/2024 9:32 AM [facility] LAB Neutrophils Relative 82.3 % LAB HEMETOLOGY METHOD 10/07/2024 9:32 AM [facility] LAB Lymphocytes Relative 10.0 % LAB HEMETOLOGY METHOD 10/07/2024 9:32 AM [facility] LAB Monocytes Relative 4.6 % LAB HEMETOLOGY METHOD 10/07/2024 9:32 AM [facility] LAB Eosinophils Relative 2.2 % LAB HEMETOLOGY METHOD 10/07/2024 9:32 AM [facility] LAB Basophils Relative 0.3 % LAB HEMETOLOGY METHOD 10/07/2024 9:32 AM [facility] LAB Immature Granulocytes Relative 0.6 % LAB HEMETOLOGY METHOD 10/07/2024 9:32 AM [facility] LAB Neutrophils Absolute 14.41(H) 1.50 - 7.00 K/mcL LAB HEMETOLOGY METHOD 10/07/2024 9:32 AM [facility] LAB Lymphocytes Absolute 1.74 1.00 - 5.00 K/mcL LAB HEMETOLOGY METHOD 10/07/2024 9:32 AM [facility] LAB Monocytes Absolute 0.80 0.20 - 1.00 K/mcL LAB HEMETOLOGY METHOD 10/07/2024 9:32 AM [facility] LAB Eosinophils Absolute 0.38 0.00 - 0.50 K/mcL LAB HEMETOLOGY METHOD 10/07/2024 9:32 AM [facility] LAB Basophils Absolute 0.05 0.00 - 0.20 K/mcL LAB HEMETOLOGY METHOD 10/07/2024 9:32 AM [facility] LAB Immature Granulocytes Absolute 0.10(H) 0.00 - 0.03 K/mcL LAB HEMETOLOGY METHOD 10/07/2024 9:32 AM [facility] LAB Blood Venous blood specimen / Unknown Venipuncture / Unknown 10/07/2024 5:18 AM EDT 10/07/2024 8:56 AM EDT us Prince Le MD LAB BLOOD ORDERABLES Final Resul t [facility] [address] [place] [address], [place] [phone] * (ABNORMAL) Basic metabolic panel (10/07/2024 5:18 AM EDT) Sodium 132(L) 133 - 145 mmol/L LAB CHEMISTRY METHOD 10/07/2024 10:16 AM [facility] LAB Potassium 5.0 3.5 - 5.5 mmol/L LAB CHEMISTRY METHOD 10/07/2024 10:16 AM [facility] LAB Chloride 99 96 - 110 mmol/L LAB CHEMISTRY METHOD 10/07/2024 10:16 AM [facility] LAB CO2 22 21 - 32 mmol/L LAB CHEMISTRY METHOD 10/07/2024 10:16 AM [facility] LAB Anion Gap 11 3 - 11 LAB CHEMISTRY METHOD 10/07/2024 10:16 AM [facility] LAB Glucose 82 70 - 100 mg/dL LAB CHEMISTRY METHOD 10/07/2024 10:16 AM [facility] LAB BUN 54(H) 5 - 25 mg/dL LAB CHEMISTRY METHOD 10/07/2024 10:16 AM [facility] LAB Creatinine 2.44(H) 0.70 - 1.30 mg/dL LAB CHEMISTRY METHOD 10/07/2024 10:16 AM [facility] LAB eGFR 28(L) >=60 mL/min/1. 73m2 LAB CHEMISTRY METHOD 10/07/2024 10:16 AM [facility] LAB Comment:Calculation based on the??Chronic Kidney Disease Epidemiology Collaboration (CKD-EPI) equation refit??without adjustment for race. BUN/Creatinine Ratio 22.1 LAB CHEMISTRY METHOD 10/07/2024 10:16 AM EDT [facility] LAB Calcium 8.9 8.5 - 10.5 mg/dL LAB CHEMISTRY METHOD 10/07/2024 10:16 AM EDT [facility] Blood Venous blood specimen / Unknown Venipuncture / Unknown 10/07/2024 5:18 AM EDT 10/07/2024 8:56 AM EDT us Prince Le MD LAB BLOOD ORDERABLES Final Resul t [facility] [address] [place] [address], documented in this encounter Visit Diagnoses Diagnosis Type 2 diabetes mellitus without complications (CMS/HCC V24, CMS/HCC V28) documented in this encounter Care Teams Guide Domestic Tour Relationship Specialty Start Date End Date Tram Álvarez MD 2 [facility] , [address] [facility] Physician Associ D/B/A: [facility] [place], [place] PCP - General Internal Medicine 03/30/18 documented as of this encounter
--- OUTSIDE RECORDS SUMMARY | 2024-10-22 12:19 | XMS_ITS | Encounter Summary ---
Author Organization [facility] Address [address] [place] [address] Care Team Providers Care Systems Accountant Name Role Phone Tram Álvarez MD Primary Care Provider [phone] Encounter Details Date Type Department Care Team (Late st Contact Info) Description 07/16/2024 Lab Requisition [facility] - Main Lab [address] [place] [address] Prince Le MD 38 [facility] [address], [address] Type 2 diabetes mellitus without complications [...] Resul t [facility] [address] [place] [address], [place] [phone] * (ABNORMAL) Comprehensive metabolic panel (07/16/2024 8:00 [...] Resul t [facility] [address] [place] [address], * (ABNORMAL) Complete blood count (07/16/2024 8:00 [...] Resul t [facility] ([facility]) [facility] [address] [place] [address], [place] [phone] documented in this encounter Visit Diagnoses Diagnosis Type 2 diabetes mellitus without complications (CMS/HCC V24, CMS/HCC V28) documented in this encounter Care Teams Systems Accountant Relationship Specialty Start Date End Date Tram Álvarez MD 2 [facility] , [address] [facility] Physician Associ D/B/A: [facility] JAS Duque PCP - General Internal Medicine 03/30/18 documented as of this encounter
--- OUTSIDE RECORDS SUMMARY | 2024-10-22 12:19 | XMS_ITS | Encounter Summary ---
Author Organization [facility] Address [address] [place] [address] Care Team Providers Care Mate Ship Name Role Phone Tram Álvarez MD Primary Care Provider [phone] Encounter Details Date Type Department Care Team (Late st Contact Info) Description 07/22/2024 Lab Requisition [facility] - Main Lab [address] [place] [address] Prince Le MD 38 [facility] [address] [place], [address] Type 2 diabetes mellitus without complications [...] mg/dL LAB CHEMISTRY METHOD 07/23/2024 10:47 AM [facility] LAB Blood Venous blood specimen / Unknown Venipuncture / Unknown 07/23/2024 6:52 AM EST 07/23/2024 9:26 AM EST us Prince Le MD LAB BLOOD ORDERABLES Final Resul t [facility] [address] [place] [address], * (ABNORMAL) Comprehensive metabolic panel (07/23/2024 6:52 AM EST) Sodium 137 133 - 145 mmol/L LAB CHEMISTRY METHOD 07/23/2024 10:47 AM [facility] LAB Potassium 5.3 3.5 - 5.5 mmol/L LAB CHEMISTRY METHOD 07/23/2024 10:47 AM [facility] LAB Chloride 102 96 - 110 mmol/L LAB CHEMISTRY METHOD 07/23/2024 10:47 AM [facility] CO2 28 21 - 32 mmol/L LAB CHEMISTRY METHOD 07/23/2024 10:47 AM [facility] LAB Anion Gap 7 3 - 11 LAB CHEMISTRY METHOD 07/23/2024 10:47 AM [facility] LAB Glucose 78 70 - 100 mg/dL LAB CHEMISTRY METHOD 07/23/2024 10:47 AM [facility] BUN 39(H) 5 - 25 mg/dL LAB CHEMISTRY METHOD 07/23/2024 10:47 AM [facility] Creatinine 1.58(H) 0.70 - 1.30 mg/dL LAB CHEMISTRY METHOD 07/23/2024 10:47 AM [facility] LAB eGFR 47(L) >=60 mL/min/1. 73m2 LAB CHEMISTRY METHOD 07/23/2024 10:47 AM [facility] LAB Comment:Calculation based on the??Chronic Kidney Disease Epidemiology Collaboration (CKD-EPI) equation refit??without adjustment for race. BUN/Creatinine Ratio 24.7 LAB CHEMISTRY METHOD 07/23/2024 10:47 AM [facility] LAB Calcium 9.5 8.5 - 10.5 mg/dL LAB CHEMISTRY METHOD 07/23/2024 10:47 AM [facility] LAB AST (SGOT) 25 10 - 42 unit/L LAB CHEMISTRY METHOD 07/23/2024 10:47 AM [facility] ALT (SGPT) 26 10 - 60 unit/L LAB CHEMISTRY METHOD 07/23/2024 10:47 AM [facility] Alkaline Phosphatase 68 42 - 121 unit/L LAB CHEMISTRY METHOD 07/23/2024 10:47 AM [facility] Total Protein 6.9 6.0 - 8.0 g/dL LAB CHEMISTRY METHOD 07/23/2024 10:47 AM [facility] Albumin 3.5 3.2 - 5.0 g/dL LAB CHEMISTRY METHOD 07/23/2024 10:47 AM [facility] Total Bilirubin 0.4 0.0 - 1.4 mg/dL LAB CHEMISTRY METHOD 07/23/2024 10:47 AM [facility] Blood Venous blood specimen / Unknown Venipuncture / Unknown 07/23/2024 6:52 AM EST 07/23/2024 9:26 AM EST us Prince Le MD LAB BLOOD ORDERABLES Final Resul t [facility] [address] [place] [address], * (ABNORMAL) Complete blood count (07/23/2024 6:52 AM EST) WBC 9.2 4.8 - 10.8 K/mcL LAB HEMETOLOGY METHOD 07/23/2024 10:13 AM [facility] RBC 4.90 4.50 - 5.50 M/mcL LAB HEMETOLOGY METHOD 07/23/2024 10:13 AM [facility] Hemoglobin 13.6 13.5 - 17.5 g/dL LAB HEMETOLOGY METHOD 07/23/2024 10:13 AM [facility] LAB Hematocrit 41.2(L) 42.0 - 54.0 % LAB HEMETOLOGY METHOD 07/23/2024 10:13 AM [facility] LAB MCV 83.7 79.0 - 98.0 FL LAB HEMETOLOGY METHOD 07/23/2024 10:13 AM [facility] LAB MCH 27.6 27.0 - 32.0 pcg LAB HEMETOLOGY METHOD 07/23/2024 10:13 AM [facility] LAB MCHC 33.0 32.0 - 37.0 g/dL LAB HEMETOLOGY METHOD 07/23/2024 10:13 AM [facility] LAB RDW 19.0(H) 11.0 - 15.0 % LAB HEMETOLOGY METHOD 07/23/2024 10:13 AM [facility] LAB Platelets 364 130 - 400 K/mcL LAB HEMETOLOGY METHOD 07/23/2024 10:13 AM [facility] LAB MPV 12.2(H) 7.0 - 11.0 FL LAB HEMETOLOGY METHOD 07/23/2024 10:13 AM [facility] LAB NRBC 0.0 <1.0 % LAB HEMETOLOGY METHOD 07/23/2024 10:13 AM [facility] LAB NRBC Absolute 0.00 <0.10 K/mcL LAB HEMETOLOGY METHOD 07/23/2024 10:13 AM [facility] LAB Blood Venous blood specimen / Unknown Venipuncture / Unknown 07/23/2024 6:52 AM EST 07/23/2024 9:26 AM EST us Prince Le MD LAB BLOOD ORDERABLES Final Resul t [facility] [address] [place] [address], documented in this encounter Visit Diagnoses Diagnosis Type 2 diabetes mellitus without complications (CMS/HCC V24, CMS/HCC V28) documented in this encounter Care Teams Mate Ship Relationship Specialty Start Date End Date Tram Álvarez MD 2 [facility] , [address] [facility] Physician Associ D/B/A: [facility] JAS Duque PCP - General Internal Medicine 03/30/18 documented as of this encounter
--- OUTSIDE RECORDS SUMMARY | 2024-10-22 12:19 | XMS_ITS | Encounter Summary ---
Author Organization [facility] Address [address] [place] [address] Care Team Providers Care Compensation And Hris Analyst Name Role Phone Tram Álvarez MD Primary Care Provider Encounter Details Date Type Department Care Team (Late st Contact Info) Description 10/14/2024 Lab Requisition [facility] - Main Lab [address] [facility] [place] [address] Prince Le MD 38 [facility] [address] [place], [address] Type 2 diabetes mellitus without complications [...] V28) documented in this encounter Care Teams Compensation And Hris Analyst Relationship Specialty Start Date End Date Tram Álvarez MD [address] [place] [address] , [address] [facility] Physician Associ D/B/A: [facility] [place], [place] PCP - General Internal Medicine 03/30/18 documented as of this encounter
--- OUTSIDE RECORDS SUMMARY | 2024-10-22 12:19 | XMS_ITS | Encounter Summary ---
Author Organization [facility] Address [address] [place] [address] Care Team Providers Care Outer Diameter Grinder Tool Name Role Phone Tram Álvarez MD Primary Care Provider [phone] Encounter Details Date Type Department Care Team (Late st Contact Info) Description 07/29/2024 Lab Requisition [facility] - Main Lab [address] [place] [address] Prince Le MD 38 [facility] [address] [place], [address] Type 2 diabetes mellitus without complications [...] mg/dL LAB CHEMISTRY METHOD 07/30/2024 10:25 AM [facility] LAB Blood Venous blood specimen / Unknown Venipuncture / Unknown 07/30/2024 7:30 AM EST 07/30/2024 9:39 AM EST us Prince Le MD LAB BLOOD ORDERABLES Final Resul t [facility] [address] [place] [address], [place] [phone] * (ABNORMAL) Comprehensive metabolic panel (07/30/2024 7:30 AM EST) Sodium 140 133 - 145 mmol/L LAB CHEMISTRY METHOD 07/30/2024 10:25 AM [facility] LAB Potassium 5.1 3.5 - 5.5 mmol/L LAB CHEMISTRY METHOD 07/30/2024 10:25 AM [facility] Chloride 107 96 - 110 mmol/L LAB CHEMISTRY METHOD 07/30/2024 10:25 AM [facility] LAB CO2 31 21 - 32 mmol/L LAB CHEMISTRY METHOD 07/30/2024 10:25 AM [facility] LAB Anion Gap 2(L) 3 - 11 LAB CHEMISTRY METHOD 07/30/2024 10:25 AM [facility] LAB Glucose 76 70 - 100 mg/dL LAB CHEMISTRY METHOD 07/30/2024 10:25 AM [facility] BUN 28(H) 5 - 25 mg/dL LAB CHEMISTRY METHOD 07/30/2024 10:25 AM [facility] Creatinine 1.13 0.70 - 1.30 mg/dL LAB CHEMISTRY METHOD 07/30/2024 10:25 AM [facility] LAB eGFR 71 >=60 mL/min/1. 73m2 LAB CHEMISTRY METHOD 07/30/2024 10:25 AM [facility] LAB Comment:Calculation based on the??Chronic Kidney Disease Epidemiology Collaboration (CKD-EPI) equation refit??without adjustment for race. BUN/Creatinine Ratio 24.8 LAB CHEMISTRY METHOD 07/30/2024 10:25 AM [facility] Calcium 9.5 8.5 - 10.5 mg/dL LAB CHEMISTRY METHOD 07/30/2024 10:25 AM [facility] AST (SGOT) 28 10 - 42 unit/L LAB CHEMISTRY METHOD 07/30/2024 10:25 AM [facility] ALT (SGPT) 24 10 - 60 unit/L LAB CHEMISTRY METHOD 07/30/2024 10:25 AM [facility] Alkaline Phosphatase 62 42 - 121 unit/L LAB CHEMISTRY METHOD 07/30/2024 10:25 AM [facility] Total Protein 6.4 6.0 - 8.0 g/dL LAB CHEMISTRY METHOD 07/30/2024 10:25 AM [facility] Albumin 3.2 3.2 - 5.0 g/dL LAB CHEMISTRY METHOD 07/30/2024 10:25 AM [facility] Total Bilirubin 0.4 0.0 - 1.4 mg/dL LAB CHEMISTRY METHOD 07/30/2024 10:25 AM [facility] Blood Venous blood specimen / Unknown Venipuncture / Unknown 07/30/2024 7:30 AM EST 07/30/2024 9:39 AM EST us Prince Le MD LAB BLOOD ORDERABLES Final Resul t [facility] [address] [place] [address], * (ABNORMAL) Complete blood count (07/30/2024 7:30 AM EST) WBC 8.9 4.8 - 10.8 K/mcL LAB HEMETOLOGY METHOD 07/30/2024 9:55 AM EST [facility] RBC 4.30(L) 4.50 - 5.50 M/mcL LAB HEMETOLOGY METHOD 07/30/2024 9:55 AM [facility] Hemoglobin 12.1(L) 13.5 - 17.5 g/dL LAB HEMETOLOGY METHOD 07/30/2024 9:55 AM [facility] LAB Hematocrit 36.5(L) 42.0 - 54.0 % LAB HEMETOLOGY METHOD 07/30/2024 9:55 AM [facility] LAB MCV 84.3 79.0 - 98.0 FL LAB HEMETOLOGY METHOD 07/30/2024 9:55 AM [facility] MCH 27.9 27.0 - 32.0 pcg LAB HEMETOLOGY METHOD 07/30/2024 9:55 AM [facility] MCHC 33.2 32.0 - 37.0 g/dL LAB HEMETOLOGY METHOD 07/30/2024 9:55 AM [facility] RDW 19.4(H) 11.0 - 15.0 % LAB HEMETOLOGY METHOD 07/30/2024 9:55 AM [facility] Platelets 315 130 - 400 K/mcL LAB HEMETOLOGY METHOD 07/30/2024 9:55 AM [facility] MPV 12.7(H) 7.0 - 11.0 FL LAB HEMETOLOGY METHOD 07/30/2024 9:55 AM [facility] NRBC 0.0 <1.0 % LAB HEMETOLOGY METHOD 07/30/2024 9:55 AM [facility] NRBC Absolute 0.00 <0.10 K/mcL LAB HEMETOLOGY METHOD 07/30/2024 9:55 AM [facility] Blood Venous blood specimen / Unknown Venipuncture / Unknown 07/30/2024 7:30 AM EST 07/30/2024 9:39 AM EST us Prince Le MD LAB BLOOD ORDERABLES Final Resul t [facility] [address] [place] [address], documented in this encounter Visit Diagnoses Diagnosis Type 2 diabetes mellitus without complications (CMS/HCC V24, CMS/HCC V28) documented in this encounter Care Teams Outer Diameter Grinder Tool Relationship Specialty Start Date End Date Tram Álvarez MD 2 [facility] , [address] [employer] Physician Associ D/B/A: [facility] JAS Duque PCP - General Internal Medicine 03/30/18 documented as of this encounter
--- OUTSIDE RECORDS SUMMARY | 2024-10-22 12:19 | XMS_ITS | Clinical Summary ---
Author Organization [facility] Address [address] [place] [address] Care Team Providers Care Airfield Engineer Officer Name Role Phone Sade Dykes PA-C Primary Care Provider [phone] Source Comments PLEASE NOTE, if this patient [...] 60 Tab 0 12/01/19 14 Active Acidophilus-Pectin, [facility] 25 million-100 cell-mg tabIndications:Dive rticulosis Take 1 tablet by mouth 2 (two) times daily. As directed by cloth printing inspector 100 tablet 3 01/31/20 14 Active benazepril [...] Plan of Treatment Not on file Insurance [facility] D[facility]AL [facility] [id number] Care Teams Airfield Engineer Officer Relationship Specialty Start Date End Date Sade Dykes PA-C [address] [place] [address] [facility] - General 04/14/13
--- OUTSIDE RECORDS SUMMARY | 2024-10-22 12:19 | XMS_ITS | Encounter Summary ---
Author Organization [facility] Address [address] [place] [address] Care Team Providers Care Services Tech Name Role Phone Tram Álvarez MD Primary Care Provider [phone] Encounter Details Date Type Department Care Team (Late st Contact Info) Description 09/02/[address] [facility] - Main Lab [address] [place] [address] Prince Le MD 38 [facility] [address] [place], [address] Type 2 diabetes mellitus without complications [...] mg/dL LAB CHEMISTRY METHOD 09/03/2024 10:05 AM [facility] Blood Venous blood specimen / Unknown Venipuncture / Unknown 09/03/2024 6:35 AM EST 09/03/2024 7:52 AM EST us Prince Le MD LAB BLOOD ORDERABLES Final Resul t [facility] [address] [place] [address], * (ABNORMAL) Comprehensive metabolic panel (09/03/2024 6:35 AM EST) Sodium 138 133 - 145 mmol/L LAB CHEMISTRY METHOD 09/03/2024 9:59 AM [facility] Potassium 4.2 3.5 - 5.5 mmol/L LAB CHEMISTRY METHOD 09/03/2024 9:59 AM [facility] Chloride 105 96 - 110 mmol/L LAB CHEMISTRY METHOD 09/03/2024 9:59 AM [facility] CO2 28 21 - 32 mmol/L LAB CHEMISTRY METHOD 09/03/2024 9:59 AM [facility] Anion Gap 5 3 - 11 LAB CHEMISTRY METHOD 09/03/2024 9:59 AM [facility] Glucose 120(H) 70 - 100 mg/dL LAB CHEMISTRY METHOD 09/03/2024 9:59 AM [facility] BUN 23 5 - 25 mg/dL LAB CHEMISTRY METHOD 09/03/2024 9:59 AM [facility] Creatinine 0.88 0.70 - 1.30 mg/dL LAB CHEMISTRY METHOD 09/03/2024 9:59 AM [facility] eGFR 94 >=60 mL/min/1. 73m2 LAB CHEMISTRY METHOD 09/03/2024 9:59 AM [facility] Comment:Calculation based on the??Chronic Kidney Disease Epidemiology Collaboration (CKD-EPI) equation refit??without adjustment for race. BUN/Creatinine Ratio 26.1 LAB CHEMISTRY METHOD 09/03/2024 9:59 AM [facility] Calcium 9.1 8.5 - 10.5 mg/dL LAB CHEMISTRY METHOD 09/03/2024 9:59 AM [facility] AST (SGOT) 23 10 - 42 unit/L LAB CHEMISTRY METHOD 09/03/2024 9:59 AM [facility] ALT (SGPT) 29 10 - 60 unit/L LAB CHEMISTRY METHOD 09/03/2024 9:59 AM [facility] Alkaline Phosphatase 59 42 - 121 unit/L LAB CHEMISTRY METHOD 09/03/2024 9:59 AM [facility] Total Protein 5.9(L) 6.0 - 8.0 g/dL LAB CHEMISTRY METHOD 09/03/2024 9:59 AM [facility] Albumin 3.1(L) 3.2 - 5.0 g/dL LAB CHEMISTRY METHOD 09/03/2024 9:59 AM [facility] Total Bilirubin 0.4 0.0 - 1.4 mg/dL LAB CHEMISTRY METHOD 09/03/2024 9:59 AM [facility] Blood Venous blood specimen / Unknown Venipuncture / Unknown 09/03/2024 6:35 AM EST 09/03/2024 7:52 AM EST us Prince Le MD LAB BLOOD ORDERABLES Final Resul t [facility] [address] [place] [address], * (ABNORMAL) Complete blood count (09/03/2024 6:35 AM EST) WBC 9.2 4.8 - 10.8 K/mcL LAB HEMETOLOGY METHOD 09/03/2024 8:43 AM [facility] RBC 3.70(L) 4.50 - 5.50 M/mcL LAB HEMETOLOGY METHOD 09/03/2024 8:43 AM [facility] Hemoglobin 10.8(L) 13.5 - 17.5 g/dL LAB HEMETOLOGY METHOD 09/03/2024 8:43 AM [facility] Hematocrit 34.4(L) 42.0 - 54.0 % LAB HEMETOLOGY METHOD 09/03/2024 8:43 AM [facility] MCV 93.5 79.0 - 98.0 FL LAB HEMETOLOGY METHOD 09/03/2024 8:43 AM [facility] MCH 29.3 27.0 - 32.0 pcg LAB HEMETOLOGY METHOD 09/03/2024 8:43 AM [facility] MCHC 31.4(L) 32.0 - 37.0 g/dL LAB HEMETOLOGY METHOD 09/03/2024 8:43 AM [facility] RDW 20.0(H) 11.0 - 15.0 % LAB HEMETOLOGY METHOD 09/03/2024 8:43 AM [facility] Platelets 333 130 - 400 K/mcL LAB HEMETOLOGY METHOD 09/03/2024 8:43 AM [facility] MPV 12.3(H) 7.0 - 11.0 FL LAB HEMETOLOGY METHOD 09/03/2024 8:43 AM [facility] NRBC 0.0 <1.0 % LAB HEMETOLOGY METHOD 09/03/2024 8:43 AM [facility] NRBC Absolute 0.00 <0.10 K/mcL LAB HEMETOLOGY METHOD 09/03/2024 8:43 AM [facility] Blood Venous blood specimen / Unknown Venipuncture / Unknown 09/03/2024 6:35 AM EST 09/03/2024 7:52 AM EST us Prince Le MD LAB BLOOD ORDERABLES Final Resul t [facility] [address] [place] [address], [place] [phone] documented in this encounter Visit Diagnoses Diagnosis Type 2 diabetes mellitus without complications (CMS/HCC V24, CMS/HCC V28) documented in this encounter Care Teams Services Tech Relationship Specialty Start Date End Date Tram Álvarez MD 2 [facility] , [address] [facility] D/B/A: [facility] JAS Duque PCP - General Internal Medicine 03/30/18 documented as of this encounter
--- OUTSIDE RECORDS SUMMARY | 2024-10-22 12:19 | XMS_ITS | Encounter Summary ---
Author Organization [facility] Address [address] [place] [address] Care Team Providers Care Oim Architect Name Role Phone Tram Álvarez MD Primary Care Provider [phone] Encounter Details Date Type Department Care Team (Late st Contact Info) Description 08/05/2024 Lab Requisition [facility] - Main Lab [address] [facility] [place] [address] Prince Le MD 38 [facility] [address] [place], [address] Type 2 diabetes mellitus without complications [...] Resul t [facility] [address] [place] [address], * Comprehensive metabolic panel (08/06/2024 6:49 AM [...] 08/06/2024 9:31 AM [facility] Alkaline Phosphatase 51 42 [...] Resul t [facility] [address] [place] [address], * (ABNORMAL) Complete blood count (08/06/2024 6:49 AM EST) WBC 8.2 4.8 - 10.8 K/mcL LAB HEMETOLOGY METHOD 08/06/2024 9:12 AM EST [facility] RBC 4.50 4.50 - 5.50 [...] 08/06/2024 9:12 AM [facility] Platelets 351 130 - 400 K/mcL LAB HEMETOLOGY METHOD 08/06/2024 9:12 AM [facility] MPV 12.2(H) 7.0 - 11.0 FL LAB HEMETOLOGY METHOD 08/06/2024 9:12 AM [facility] NRBC 0.0 <1.0 % LAB HEMETOLOGY METHOD 08/06/2024 9:12 AM [facility] NRBC Absolute 0.00 <0.10 K/mcL LAB HEMETOLOGY METHOD 08/06/2024 9:12 AM [facility] Blood Venous blood specimen / Unknown Venipuncture / Unknown 08/06/2024 6:49 AM EST 08/06/2024 8:31 AM EST us rPince Le MD LAB BLOOD ORDERABLES Final Resul t [facility] [address] [place] [address], [place] [phone] documented in this encounter Visit Diagnoses Diagnosis Type 2 diabetes mellitus without complications (CMS/HCC V24, CMS/HCC V28) documented in this encounter Care Teams Oim Architect Relationship Specialty Start Date End Date Tram Álvarez MD 2 [facility] , [address] [facility] D/B/A: [facility] [place] PCP - General Internal Medicine 03/30/18 documented as of this encounter
--- OUTSIDE RECORDS SUMMARY | 2024-10-22 12:19 | XMS_ITS | Encounter Summary ---
Author Organization [facility] Address [address] [place] [address] Care Team Providers Care Acid Blower Name Role Phone Tram Álvarez MD Primary Care Provider [phone] Encounter Details Date Type Department Care Team (Late st Contact Info) Description 08/19/2024 Lab Requisition [facility] - Main Lab [address] [place] [address] Prince Le MD 38 [facility] [address] [place], [address] Type 2 diabetes mellitus without complications [...] mg/dL LAB CHEMISTRY METHOD 08/20/2024 11:12 AM [facility] Blood Venous blood specimen / Unknown Venipuncture / Unknown 08/20/2024 7:39 AM EST 08/20/2024 10:36 AM EST us Prince Le MD LAB BLOOD ORDERABLES Final Resul t [facility] [address] [place] [address], * (ABNORMAL) Comprehensive metabolic panel (08/20/2024 7:39 AM EST) Sodium 139 133 - 145 mmol/L LAB CHEMISTRY METHOD 08/20/2024 11:11 AM [facility] Potassium 4.5 3.5 - 5.5 mmol/L LAB CHEMISTRY METHOD 08/20/2024 11:11 AM [facility] Chloride 109 96 - 110 mmol/L LAB CHEMISTRY METHOD 08/20/2024 11:11 AM [facility] CO2 26 21 - 32 mmol/L LAB CHEMISTRY METHOD 08/20/2024 11:11 AM [facility] Anion Gap 4 3 - 11 LAB CHEMISTRY METHOD 08/20/2024 11:11 AM [facility] Glucose 120(H) 70 - 100 mg/dL LAB CHEMISTRY METHOD 08/20/2024 11:11 AM [facility] BUN 22 5 - 25 mg/dL LAB CHEMISTRY METHOD 08/20/2024 11:11 AM [facility] Creatinine 0.78 0.70 - 1.30 mg/dL LAB CHEMISTRY METHOD 08/20/2024 11:11 AM [facility] eGFR 97 >=60 mL/min/1. 73m2 LAB CHEMISTRY METHOD 08/20/2024 11:11 AM [facility] Comment:Calculation based on the??Chronic Kidney Disease Epidemiology Collaboration (CKD-EPI) equation refit??without adjustment for race. BUN/Creatinine Ratio 28.2 LAB CHEMISTRY METHOD 08/20/2024 11:11 AM [facility] Calcium 9.3 8.5 - 10.5 mg/dL LAB CHEMISTRY METHOD 08/20/2024 11:11 AM [facility] AST (SGOT) 35 10 - 42 unit/L LAB CHEMISTRY METHOD 08/20/2024 11:11 AM [facility] ALT (SGPT) 30 10 - 60 unit/L LAB CHEMISTRY METHOD 08/20/2024 11:11 AM [facility] Alkaline Phosphatase 39(L) 42 - 121 unit/L LAB CHEMISTRY METHOD 08/20/2024 11:11 AM [facility] Total Protein 6.6 6.0 - 8.0 g/dL LAB CHEMISTRY METHOD 08/20/2024 11:11 AM [facility] Albumin 3.5 3.2 - 5.0 g/dL LAB CHEMISTRY METHOD 08/20/2024 11:11 AM [facility] Total Bilirubin 0.8 0.0 - 1.4 mg/dL LAB CHEMISTRY METHOD 08/20/2024 11:11 AM [facility] Blood Venous blood specimen / Unknown Venipuncture / Unknown 08/20/2024 7:39 AM EST 08/20/2024 10:36 AM EST us Prince Le MD LAB BLOOD ORDERABLES Final Resul t [facility] [address] [place] [address], * (ABNORMAL) Complete blood count (08/20/2024 7:39 AM EST) WBC 13.2(H) 4.8 - 10.8 K/mcL LAB HEMETOLOGY METHOD 08/20/2024 10:52 AM [facility] RBC 3.90(L) 4.50 - 5.50 M/mcL LAB HEMETOLOGY METHOD 08/20/2024 10:52 AM [facility] Hemoglobin 11.0(L) 13.5 - 17.5 g/dL LAB HEMETOLOGY METHOD 08/20/2024 10:52 AM [facility] Hematocrit 33.1(L) 42.0 - 54.0 % LAB HEMETOLOGY METHOD 08/20/2024 10:52 AM [facility] MCV 85.3 79.0 - 98.0 FL LAB HEMETOLOGY METHOD 08/20/2024 10:52 AM [facility] MCH 28.4 27.0 - 32.0 pcg LAB HEMETOLOGY METHOD 08/20/2024 10:52 AM [facility] MCHC 33.2 32.0 - 37.0 g/dL LAB HEMETOLOGY METHOD 08/20/2024 10:52 AM [facility] RDW 20.9(H) 11.0 - 15.0 % LAB HEMETOLOGY METHOD 08/20/2024 10:52 AM [facility] Platelets 329 130 - 400 K/mcL LAB HEMETOLOGY METHOD 08/20/2024 10:52 AM [facility] MPV 13.2(H) 7.0 - 11.0 FL LAB HEMETOLOGY METHOD 08/20/2024 10:52 AM [facility] NRBC 0.0 <1.0 % LAB HEMETOLOGY METHOD 08/20/2024 10:52 AM [facility] NRBC Absolute 0.00 <0.10 K/mcL LAB HEMETOLOGY METHOD 08/20/2024 10:52 AM [facility] Blood Venous blood specimen / Unknown Venipuncture / Unknown 08/20/2024 7:39 AM EST 08/20/2024 10:36 AM EST us Prince Le MD LAB BLOOD ORDERABLES Final Resul t [facility] [address] [place] [address], [place] [phone] documented in this encounter Visit Diagnoses Diagnosis Type 2 diabetes mellitus without complications (CMS/HCC V24, CMS/HCC V28) documented in this encounter Care Teams Acid Blower Relationship Specialty Start Date End Date Tram Álvarez MD 2 [facility] , [address] [facility] D/B/A: [facility] JAS Duque PCP - General Internal Medicine 03/30/18 documented as of this encounter
--- OUTSIDE RECORDS SUMMARY | 2024-10-22 12:19 | XMS_ITS | Clinical Summary ---
Author Organization [address] [facility] Address [address] [place] [address] Phone Care Team Providers Care Skull Splitter Name Role Phone Tram Álvarez MD Primary Care Provider [phone] Encounters Date Type Department Care Team Description 10/22/2024 Lab Requisition [facility] Lab [address] [place] [phone] Preeti Lujan MD Type 2 diabetes mellitus without complications ([facility] V24, [facility] V28) 10/21/2024 Lab Requisition [facility] Lab [address] [facility] [place] [phone] Prince Le MD Type 2 diabetes mellitus without complications ([facility] V24, [facility] V28) 10/18/2024 Lab Requisition [facility] Lab [address] [place] [phone] Preeti Lujan MD Sepsis, unspecified organism ([facility] V24, [facility] V28) 10/14/2024 Lab Requisition [facility] Lab [address] [place] [phone] Prince Le MD Type 2 diabetes mellitus without complications ([facility] V24, [facility] V28) 10/07/2024 Lab Requisition [facility] Lab [address] [facility] [place] [phone] Prince Le MD Type 2 diabetes mellitus without complications ([facility] V24, [facility] V28) 10/07/2024 Lab Requisition [facility] Lab [address] [place] [address] Prince Le MD Type 2 diabetes mellitus without complications ([facility] V24, [facility] V28) 09/30/2024 Lab Requisition [facility] Lab [address] [place] [address] Prince Le MD Type 2 diabetes mellitus without complications ([facility] V24, [facility] V28) 09/23/2024 Lab Requisition [facility] Lab [address] [place] [phone] Prince Le MD Type 2 diabetes mellitus without complications ([facility] V24, [facility] V28) 09/16/2024 Lab Requisition [facility] Lab [address] [place] [phone] Prince Le MD Type 2 diabetes mellitus without complications ([facility] V24, [facility] V28) 09/09/2024 Lab Requisition [facility] Lab [address] [place] [phone] Prince Le MD Type 2 diabetes mellitus without complications ([facility] V24, [facility] V28) 09/02/2024 Lab Requisition [facility] Lab [address] [place] [phone] Prince Le MD Type 2 diabetes mellitus without complications ([facility] V24, [facility] V[facility]) 08/26/2024 Lab Requisition [facility] Lab [address] [place] [address] Prince Le MD Type 2 diabetes mellitus without complications ([facility] V24, [facility] V28) 08/19/2024 Lab Requisition [facility] Lab [address] [place] [address] Prince Le MD Type 2 diabetes mellitus without complications ([facility] V24, [facility] V28) 08/12/2024 Lab Requisition [facility] Main Lab [address] [facility] [place] [phone] Prince Le MD Type 2 diabetes mellitus without complications ([facility] V24, [facility] V28) 08/05/2024 Lab Requisition [facility] Lab [address] [facility] [place] [phone] Prince Le MD Type 2 diabetes mellitus without complications ([facility] V24, [facility] V28) 07/29/2024 Lab Requisition [facility] Lab [address] [facility] [place] [phone] Prince Le MD Type 2 diabetes mellitus without complications ([facility] V24, [facility] V28) from Last 3 Months Social History [...] 9:03 AM EDT) Only the most recent of10 resultswithin the time period is included. WBC 5.9 4.8 - 10.8 K/mcL LAB HEMETOLOGY METHOD 10/18/2024 1:35 PM [facility] LAB RBC 3.40(L) 4.50 - 5.50 M/mcL LAB HEMETOLOGY METHOD [facility] Hemoglobin 10.1(L) 13.5 - 17.5 g/dL LAB HEMETOLOGY METHOD 10/18/2024 1:35 PM [facility] LAB Hematocrit 32.3(L) 42.0 - 54.0 % LAB HEMETOLOGY METHOD 10/18/2024 1:35 PM [facility] LAB MCV 96.4 79.0 - 98.0 FL LAB HEMETOLOGY METHOD [facility]24 [facility] MCH 30.1 27.0 - 32.0 pcg LAB HEMETOLOGY METHOD 10/18/2024 1:35 PM [facility] LAB MCHC 31.3(L) 32.0 - 37.0 g/dL LAB HEMETOLOGY METHOD 10/18/2024 1:35 PM [facility] LAB RDW 18.2(H) 11.0 - 15.0 % LAB HEMETOLOGY METHOD 10/18/2024 1:35 PM [facility] LAB Platelets 275 130 - 400 K/mcL LAB HEMETOLOGY METHOD 10/18/2024 1:35 PM EDT [facility] LAB MPV 13.2(H) 7.0 - 11.0 FL LAB HEMETOLOGY METHOD 10/18/2024 1:35 PM EDT [facility] LAB NRBC 0.0 <1.0 % LAB HEMETOLOGY METHOD 10/18/2024 1:35 PM EDT [facility] LAB NRBC Absolute 0.00 <0.10 K/mcL LAB HEMETOLOGY METHOD 10/18/2024 1:35 PM EDT [facility] LAB Blood Venous blood specimen / Unknown Venipuncture / Unknown 10/18/2024 9:03 AM EDT 10/18/2024 11:02 AM EDT Preeti Lujan MD LAB BLOOD ORDERABLES Fin al Result [facility] LAB [address] [place] [address], [place] [phone] * (ABNORMAL) Basic metabolic panel (10/18/2024 9:03 AM EDT) Only the most recent of2 resultswithin the time period is included. Sodium 142 133 - 145 mmol/L LAB CHEMISTRY METHOD 10/18/2024 1:15 PM EDT [facility] LAB Potassium 4.0 3.5 - 5.5 mmol/L LAB CHEMISTRY METHOD 10/18/2024 1:15 PM EDT [facility] LAB Chloride 113(H) 96 - 110 mmol/L LAB CHEMISTRY METHOD 10/18/2024 1:15 PM EDT [facility] LAB CO2 22 21 - 32 mmol/L LAB CHEMISTRY METHOD 10/18/2024 1:15 PM EDT [facility] LAB Anion Gap 7 3 - 11 LAB CHEMISTRY METHOD 10/18/2024 1:15 PM EDT [facility] LAB Glucose 114(H) 70 - 100 mg/dL LAB CHEMISTRY METHOD 10/18/2024 1:15 PM EDT [facility] LAB BUN 12 5 - 25 mg/dL LAB CHEMISTRY METHOD 10/18/2024 1:15 PM EDT [facility] LAB Creatinine 0.58(L) 0.70 - 1.30 mg/dL LAB CHEMISTRY METHOD 10/18/2024 1:15 PM EDT [facility] LAB eGFR 106 >=60 mL/min/1. 73m2 LAB CHEMISTRY METHOD 10/18/2024 1:15 PM EDT [facility] LAB Comment:Calculation based on the??Chronic Kidney Disease Epidemiology Collaboration (CKD-EPI) equation refit??without adjustment for race. BUN/Creatinine Ratio 20.7 LAB CHEMISTRY METHOD 10/18/2024 1:15 PM EDT [facility] LAB Calcium 8.7 8.5 - 10.5 mg/dL LAB CHEMISTRY METHOD 10/18/2024 1:15 PM EDT [facility] LAB Blood Venous blood specimen / Unknown Venipuncture / Unknown 10/18/2024 9:03 AM EDT 10/18/2024 11:02 AM EDT us Preeti Lujan MD LAB BLOOD ORDERABLES Fin al Result [facility] LAB [address] [place] [address], * (ABNORMAL) CBC auto differential (10/07/2024 5:18 AM EDT) WBC 17.5(H) 4.8 - 10.8 K/[facility] LAB HEMETOLOGY METHOD 10/07/2024 9:32 AM EDT [facility] LAB RBC 3.80(L) 4.50 - 5.50 M/[facility] LAB HEMETOLOGY METHOD 10/07/2024 9:32 AM EDT [facility] LAB Hemoglobin 11.2(L) 13.5 - 17.5 [...] % LAB HEMETOLOGY METHOD 10/07/2024 9:32 AM EDT [facility] LAB Eosinophils Relative 2.2 % LAB HEMETOLOGY METHOD 10/07/2024 9:32 AM EDT [facility] Basophils Relative 0.3 % LAB HEMETOLOGY METHOD 10/07/2024 9:32 AM EDT [facility] Immature Granulocytes Relative 0.6 % LAB HEMETOLOGY METHOD 10/07/2024 9:32 AM EDT [facility] LAB Neutrophils Absolute 14.41(H) 1.50 - 7.00 K/mcL LAB HEMETOLOGY METHOD 10/07/2024 9:32 AM EDT [facility] Lymphocytes Absolute 1.74 1.00 - 5.00 K/mcL LAB HEMETOLOGY METHOD 10/07/2024 9:32 AM EDT [facility] Monocytes Absolute 0.80 0.20 - 1.00 K/mcL LAB HEMETOLOGY METHOD 10/07/2024 9:32 AM EDT [facility] LAB Eosinophils Absolute 0.38 0.00 - 0.50 K/mcL LAB HEMETOLOGY METHOD 10/07/2024 9:32 AM EDT [facility] LAB Basophils Absolute 0.05 0.00 - 0.20 K/mcL LAB HEMETOLOGY METHOD 10/07/2024 9:32 AM EDT [facility] LAB Immature Granulocytes Absolute 0.10(H) 0.00 - 0.03 K/mcL LAB HEMETOLOGY METHOD 10/07/2024 9:32 AM [facility] LAB Blood Venous blood specimen / Unknown Venipuncture / Unknown 10/07/2024 5:18 AM EDT 10/07/2024 8:56 AM EDT us Prince Le MD LAB BLOOD ORDERABLES Final Resul t [facility] LAB [address] [place] [address], [place] [phone] * (ABNORMAL) C-reactive protein (10/01/2024 8:01 AM EDT) Only the most recent of9 resultswithin the time period is included. [facility] C-Reactive Protein 0.73(H) <=0.50 mg/dL LAB CHEMISTRY METHOD 10/01/2024 11:57 AM EDT [facility] Blood Venous blood specimen / Unknown Venipuncture / Unknown 10/01/2024 8:01 AM EDT 10/01/2024 10:24 AM EDT Prince Le MD LAB BLOOD ORDERABLES Final Resul t [facility] [address] [place] [address], [place] [phone] * (ABNORMAL) Comprehensive metabolic panel (10/01/2024 8:01 AM EDT) Only the most recent of9 resultswithin the time period is included. [facility] Sodium 134 133 - 145 mmol/L LAB CHEMISTRY METHOD 10/01/2024 12:02 PM [facility] LAB Potassium 4.7 3.5 - 5.5 mmol/L LAB CHEMISTRY METHOD 10/01/2024 12:02 PM [facility] LAB Chloride 101 96 - 110 mmol/L LAB CHEMISTRY METHOD 10/01/2024 12:02 PM [facility] LAB CO2 27 21 - 32 mmol/L LAB CHEMISTRY METHOD 10/01/2024 12:02 PM [facility] LAB Anion Gap 6 3 - 11 LAB CHEMISTRY METHOD 10/01/2024 12:02 PM [facility] LAB Glucose 79 70 - 100 mg/dL LAB CHEMISTRY METHOD 10/01/2024 12:02 PM [facility] LAB BUN 40(H) 5 - 25 mg/dL LAB CHEMISTRY METHOD 10/01/2024 12:02 PM [facility] LAB Creatinine 1.55(H) 0.70 - 1.30 mg/dL LAB CHEMISTRY METHOD 10/01/2024 12:02 PM [facility] LAB eGFR 48(L) >=60 mL/min/1. 73m2 LAB CHEMISTRY METHOD 10/01/2024 12:02 PM [facility] LAB Comment:Calculation based on the??Chronic Kidney Disease Epidemiology Collaboration (CKD-EPI) equation refit??without adjustment for race. BUN/Creatinine Ratio 25.8 LAB CHEMISTRY METHOD 10/01/2024 12:02 PM [facility] LAB Calcium 8.8 8.5 - 10.5 mg/dL LAB CHEMISTRY METHOD 10/01/2024 12:02 PM [facility] LAB AST (SGOT) 63(H) 10 - 42 unit/L LAB CHEMISTRY METHOD 10/01/2024 12:02 PM [facility] LAB ALT (SGPT) 30 10 - 60 unit/L LAB CHEMISTRY METHOD 10/01/2024 12:02 PM [facility] LAB Alkaline Phosphatase 40(L) 42 - 121 unit/L LAB CHEMISTRY METHOD 10/01/2024 12:02 PM [facility] LAB Total Protein 6.0 6.0 - 8.0 g/dL LAB CHEMISTRY METHOD 10/01/2024 12:02 PM [facility] LAB Albumin 2.9(L) 3.2 - 5.0 g/dL LAB CHEMISTRY METHOD 10/01/2024 12:02 PM [facility] LAB Total Bilirubin 0.4 0.0 - 1.4 mg/dL LAB CHEMISTRY METHOD 10/01/2024 12:02 PM [facility] LAB Blood Venous blood specimen / Unknown Venipuncture / Unknown 10/01/2024 8:01 AM EDT 10/01/2024 10:24 AM EDT Prince Le MD LAB BLOOD ORDERABLES Final Resul t [facility] [address] [place] [address], [place] [phone] * (ABNORMAL) Lipid panel with reflex to direct LDL (08/27/2024 6:34 AM EST) Cholesterol 96 0 - 200 mg/dL LAB CHEMISTRY METHOD 08/27/2024 9:27 AM EST [facility] Triglycerides 249(H) 0 - 150 mg/dL LAB CHEMISTRY METHOD 08/27/2024 9:27 AM [facility] HDL 30(L) >=40 mg/dL LAB CHEMISTRY METHOD 08/27/2024 9:27 AM [facility] LDL Calculated 16 0 - 100 mg/dL LAB CHEMISTRY METHOD 08/27/2024 9:27 AM EST [facility] VLDL Cholesterol Maikel 49.8 mg/dL LAB CHEMISTRY METHOD 08/27/2024 9:27 AM EST [facility] LAB Non HDL Chol. (LDL+VLDL) 66 <145 mg/dL LAB CHEMISTRY METHOD 08/27/2024 9:27 AM [facility] LAB Chol/HDL Ratio 3.2 0.0 - 4.4 LAB CHEMISTRY METHOD 08/27/2024 9:27 AM [facility] LAB Blood Venous blood specimen / Unknown Venipuncture / Unknown 08/27/2024 6:34 AM EST 08/27/2024 8:52 AM EST Prince Le MD LAB BLOOD ORDERABLES Final Resul t [facility] [address] [place] [address], [place] [phone] from Last 3 Months Insurance [employer] Member Subscriber Plan / Payer (Ef fective 2023-Present) Name:Carlos Cabrera Relation to Subscriber:Self Name:Marco Cabrerao A Payer ID:[id number] Group ID:[id number] Type:Not on file Address: [facility] [address] [id number] Care Teams Skull Splitter Relationship Specialty Start Date End Date Tram Álvarez MD [address] [place] [address] , [address] Physician Associ D/B/A: [facility] JAS Duque PCP - General Internal Medicine 03/30/18
--- OUTSIDE RECORDS SUMMARY | 2024-10-22 12:19 | XMS_ITS | Encounter Summary ---
Author Organization [facility] Address [address] [place] [address] Care Team Providers Care Cistern Room Operator Name Role Phone Tram Álvarez MD Primary Care Provider Encounter Details Date Type Department Care Team (Late st Contact Info) Description 05/21/2024 Lab Requisition [facility] - Main Lab [address] [place] [address] Prince Le MD 38 [facility] [address] [place], [phone] Essential (primary) hypertension Social History Tobacco [...] LAB CHEMISTRY METHOD 05/24/2024 9:02 AM EST [facility] LAB Potassium 4.2 3.5 - 5.5 mmol/L LAB CHEMISTRY METHOD 05/24/2024 9:02 AM EST [facility] LAB Chloride 109 96 - 110 mmol/L LAB CHEMISTRY METHOD 05/24/2024 9:02 AM [facility] LAB CO2 28 21 - 32 mmol/L LAB CHEMISTRY METHOD 05/24/2024 9:02 AM [facility] LAB Anion Gap 5 3 - 11 LAB CHEMISTRY METHOD 05/24/2024 9:02 AM [facility] LAB Glucose 129(H) 70 - 100 mg/dL LAB CHEMISTRY METHOD 05/24/2024 9:02 AM [facility] LAB BUN 38(H) 5 - 25 mg/dL LAB CHEMISTRY METHOD 05/24/2024 9:02 AM [facility] LAB Creatinine 1.33(H) 0.70 - 1.30 mg/dL LAB CHEMISTRY METHOD 05/24/2024 9:02 AM [facility] LAB eGFR 58(L) >=60 mL/min/1. 73m2 LAB CHEMISTRY METHOD 05/24/2024 9:02 AM [facility] LAB Comment:Calculation based on the??Chronic Kidney Disease Epidemiology Collaboration (CKD-EPI) equation refit??without adjustment for race. BUN/Creatinine Ratio 28.6 LAB CHEMISTRY METHOD 05/24/2024 9:02 AM [facility] LAB Calcium 9.2 8.5 - 10.5 mg/dL LAB CHEMISTRY METHOD 05/24/2024 9:02 AM [facility] LAB Blood Venous blood specimen / Unknown Venipuncture / Unknown 05/24/2024 6:00 AM EST 05/24/2024 7:45 AM EST us Prince Le MD LAB BLOOD ORDERABLES Final Resul t [facility] LAB [address] [place] [address], * (ABNORMAL) Complete blood count (05/24/2024 6:00 AM EST) WBC 9.3 4.8 - 10.8 K/mcL LAB HEMETOLOGY METHOD 05/24/2024 9:03 AM [facility] LAB RBC 4.90 4.50 - 5.50 M/[facility] LAB HEMETOLOGY METHOD 05/24/2024 9:03 AM [facility] LAB Hemoglobin 13.6 13.5 - 17.5 g/dL LAB HEMETOLOGY METHOD 05/24/2024 9:03 AM [facility] LAB Hematocrit 43.1 42.0 - 54.0 % LAB HEMETOLOGY METHOD 05/24/2024 9:03 AM [facility] LAB MCV 87.4 79.0 - 98.0 FL LAB HEMETOLOGY METHOD 05/24/2024 9:03 AM [facility] LAB MCH 27.6 27.0 - 32.0 pcg LAB HEMETOLOGY METHOD 05/24/2024 9:03 AM [facility] LAB MCHC 31.6(L) 32.0 - 37.0 g/dL LAB HEMETOLOGY METHOD 05/24/2024 9:03 AM [facility] LAB RDW 16.4(H) 11.0 - 15.0 % LAB HEMETOLOGY METHOD 05/24/2024 9:03 AM [facility] LAB Platelets 249 130 - 400 K/[facility] LAB HEMETOLOGY METHOD 05/24/2024 9:03 AM [facility] LAB MPV 13.1(H) 7.0 - 11.0 FL LAB HEMETOLOGY METHOD 05/24/2024 9:03 AM [facility] LAB NRBC 0.0 <1.0 % LAB HEMETOLOGY METHOD 05/24/2024 9:03 AM [facility] LAB NRBC Absolute 0.00 <0.10 K/[facility] LAB HEMETOLOGY METHOD 05/24/2024 9:03 AM [facility] LAB Blood Venous blood specimen / Unknown Venipuncture / Unknown 05/24/2024 6:00 AM EST 05/24/2024 7:45 AM EST us Prince Le MD LAB BLOOD ORDERABLES Final [facility]ul t [facility] [address] [place] [address], documented in this encounter Visit Diagnoses Diagnosis Essential (primary) hypertension Unspecified essential hypertension documented in this encounter Care Teams Cistern Room Operator Relationship Specialty Start Date End Date Tram Álvarez MD 2 [facility] , [address] [place] [address] Physician Associ D/B/A: [facility] JAS Duque PCP - General Internal Medicine 03/30/18 documented as of this encounter
--- OUTSIDE RECORDS SUMMARY | 2024-10-22 12:19 | XMS_ITS | Encounter Summary ---
Author Organization [facility] Address [address] [place] [address] Care Team Providers Care Foundation Drill Operator Helper Name Role Phone Tram Álvarez MD Primary Care Provider [phone] Encounter Details Date Type Department Care Team (Late st Contact Info) Description 08/12/2024 Lab Requisition [facility] - Main Lab [address] [place] [address] Prince Le MD 38 [facility] [address] [place], [address] Type 2 diabetes mellitus without complications [...] mg/dL LAB CHEMISTRY METHOD 08/13/2024 11:42 AM [facility] Blood Venous blood specimen / Unknown Venipuncture / Unknown 08/13/2024 7:38 AM EST 08/13/2024 11:02 AM EST us Prince Le MD LAB BLOOD ORDERABLES Final Resul t [facility] [address] [place] [address], * (ABNORMAL) Comprehensive metabolic panel (08/13/2024 7:38 AM EST) Sodium 137 133 - 145 mmol/L LAB CHEMISTRY METHOD 08/13/2024 11:42 AM [facility] Potassium 5.1 3.5 - 5.5 mmol/L LAB CHEMISTRY METHOD 08/13/2024 11:42 AM [facility] Chloride 103 96 - 110 mmol/L LAB CHEMISTRY METHOD 08/13/2024 11:42 AM [facility] CO2 29 21 - 32 mmol/L LAB CHEMISTRY METHOD 08/13/2024 11:42 AM [facility] Anion Gap 5 3 - 11 LAB CHEMISTRY METHOD 08/13/2024 11:42 AM [facility] Glucose 90 70 - 100 mg/dL LAB CHEMISTRY METHOD 08/13/2024 11:42 AM [facility] BUN 31(H) 5 - 25 mg/dL LAB CHEMISTRY METHOD 08/13/2024 11:42 AM [facility] Creatinine 0.98 0.70 - 1.30 mg/dL LAB CHEMISTRY METHOD 08/13/2024 11:42 AM [facility] LAB eGFR 84 >=60 mL/min/1. 73m2 LAB CHEMISTRY METHOD 08/13/2024 11:42 AM [facility] Comment:Calculation based on the??Chronic Kidney Disease Epidemiology Collaboration (CKD-EPI) equation refit??without adjustment for race. BUN/Creatinine Ratio 31.6 LAB CHEMISTRY METHOD 08/13/2024 11:42 AM [facility] Calcium 9.2 8.5 - 10.5 mg/dL LAB CHEMISTRY METHOD 08/13/2024 11:42 AM [facility] AST (SGOT) 36 10 - 42 unit/L LAB CHEMISTRY METHOD 08/13/2024 11:42 AM [facility] ALT (SGPT) 32 10 - 60 unit/L LAB CHEMISTRY METHOD 08/13/2024 11:42 AM [facility] Alkaline Phosphatase 47 42 - 121 unit/L LAB CHEMISTRY METHOD 08/13/2024 11:42 AM [facility] Total Protein 6.4 6.0 - 8.0 g/dL LAB CHEMISTRY METHOD 08/13/2024 11:42 AM [facility] Albumin 3.4 3.2 - 5.0 g/dL LAB CHEMISTRY METHOD 08/13/2024 11:42 AM [facility] Total Bilirubin 0.6 0.0 - 1.4 mg/dL LAB CHEMISTRY METHOD 08/13/2024 11:42 AM [facility] Blood Venous blood specimen / Unknown Venipuncture / Unknown 08/13/2024 7:38 AM EST 08/13/2024 11:02 AM EST us Prince Le MD LAB BLOOD ORDERABLES Final Resul t [facility] [address] [place] [address], * (ABNORMAL) Complete blood count (08/13/2024 7:30 AM EST) WBC 8.4 4.8 - 10.8 K/mcL LAB HEMETOLOGY METHOD 08/13/2024 11:11 AM [facility] RBC 4.20(L) 4.50 - 5.50 M/mcL LAB HEMETOLOGY METHOD 08/13/2024 11:11 AM [facility] Hemoglobin 11.6(L) 13.5 - 17.5 g/dL LAB HEMETOLOGY METHOD 08/13/2024 11:11 AM [facility] Hematocrit 36.1(L) 42.0 - 54.0 % LAB HEMETOLOGY METHOD 08/13/2024 11:11 AM [facility] MCV 86.2 79.0 - 98.0 FL LAB HEMETOLOGY METHOD 08/13/2024 11:11 AM [facility] MCH 27.7 27.0 - 32.0 pcg LAB HEMETOLOGY METHOD 08/13/2024 11:11 AM [facility] MCHC 32.1 32.0 - 37.0 g/dL LAB HEMETOLOGY METHOD 08/13/2024 11:11 AM [facility] RDW 21.2(H) 11.0 - 15.0 % LAB HEMETOLOGY METHOD 08/13/2024 11:11 AM [facility] Platelets 338 130 - 400 K/mcL LAB HEMETOLOGY METHOD 08/13/2024 11:11 AM [facility] MPV 12.8(H) 7.0 - 11.0 FL LAB HEMETOLOGY METHOD 08/13/2024 11:11 AM [facility] NRBC 0.0 <1.0 % LAB HEMETOLOGY METHOD 08/13/2024 11:11 AM [facility] NRBC Absolute 0.00 <0.10 K/mcL LAB HEMETOLOGY METHOD 08/13/2024 11:11 AM [facility] Blood Venous blood specimen / Unknown Venipuncture / Unknown 08/13/2024 7:30 AM EST 08/13/2024 10:59 AM EST us Prince Le MD LAB BLOOD ORDERABLES [facility] [address] [place] [address], documented in this encounter Visit Diagnoses Diagnosis Type 2 diabetes mellitus without complications (CMS/HCC V24, CMS/HCC V28) documented in this encounter Care Teams Foundation Drill Operator Helper Relationship Specialty Start Date End Date Tram Álvarez MD 2 [facility] , [address] [facility] Physician Associ D/B/A: [facility] JAS Duque PCP - General Internal Medicine 03/30/18 documented as of this encounter
--- OUTSIDE RECORDS SUMMARY | 2024-10-22 12:19 | XMS_ITS | Encounter Summary ---
Author Organization [facility] Address [address] [place] [address] Care Team Providers Care Rn Pediatric Icu Name Role Phone Tram Álvarez MD Primary Care Provider [phone] Encounter Details Date Type Department Care Team (Late st Contact Info) Description 09/09/2024 Lab Requisition [facility] - Main Lab 299 [facility] [place] [address] Prince Le MD 38 [facility] 204 [place], [address] Type 2 diabetes mellitus without complications [...] V28) documented in this encounter Care Teams Rn Pediatric Icu Relationship Specialty Start Date End Date Tram Álvarez MD [address] [place] [address] , [address] [facility] Physician Associ D/B/A: [facility] [place], [place] PCP - General Internal Medicine 03/30/18 documented as of this encounter
--- OUTSIDE RECORDS SUMMARY | 2024-10-22 12:19 | XMS_ITS | Clinical Summary ---
Author Organization [facility] Facility Address [address] [place] [address] Care Team Providers Care Box Worker Name Role Phone Tram Royal MD Primary Care Provider [phone] Allergies Active Allergy Reactions Criticality Noted Date [...] % PVNMA 04/28/2020 us [facility] Conversion LAB [id number] LICITED RESULTS Final Result PVNMA from Last 3 Months or Most Recently Relevant to Health Maintenance Insurance [id number] [place] [id number] Medicaid [place] [id number] [place] [id number] Medicaid [place] Care Teams Box Worker Relationship Specialty Start Date End Date Tram Royal MD [address] [place] PCP - General 07/17/20
--- OUTSIDE RECORDS SUMMARY | 2024-10-22 12:19 | XMS_ITS | Data Portability ---
Author Organization [facility], Me in - [employer] Address [address] [place] [address] Care Team Providers Care Dining Room Cashier Name Role Phone HIM CCA OTHER LANG [...] Available N ot Available FreeStyle Tirso 2 [facility]od active Not Available Not Available Not Available [...] SNOMED-CT Code Diagnosis ICD10 Code Diagnosis Note 97162 Alicia Perez MD Main - instED [address] [place] [phone] 04/05/2024 17:15:55 10/21/2024 20:16:20 Accidental fall [id number] I provided real -time medical direction via phone for this encounter, and was available for additional phone based assistance as needed. I have reviewed and agree with the Assessment and Plan as documented by the Cardiology Physician. Patient given the opportunit y to ask [...] Richardson Member ID Guarantor Name 04/05/2024 1 [facility] - DOS ON OR AFTER 2022 - DUAL ELIGIBLE - [facility] OPTIONS AND ONE CARE (MEDICARE REPLACEMENT/ADV ANTAGE - HMO) Carlos Cabrera [id number] Carlos Cabrera Notes Date Note Type Note Provider Name and Address Organization Details Recorded Time 04/05/2024 text/html CRC Nurse Triage Notes (Inder Sweeney): Chief Complaints: Falls Allergies: Unknown Comments: Die Cleaner verified the Pt.'s name//address and phone number. [...] .................. .................. .................. .................. .................. .................. ............... Cardiology Physician Note From Dangelo Willis: Dispatched to the [...] he is working on with his PCP. [facility] was consulted. Red flags discussed. .................. .................. .................. .................. .................. .................. .................. ............... Disposition: Fulfilled Alicia Perez MD 30 [facility],[address], [place], [address], MOHINI PAGE 04/05/2024 20:37:09
--- OUTSIDE RECORDS SUMMARY | 2024-10-22 12:19 | XMS_ITS | Encounter Summary ---
Author Organization [facility] Address [address] [place] [address] Care Team Providers Care Product Safety Test Engineer Name Role Phone Tram Álvarez MD Primary Care Provider [phone] Encounter Details Date Type Department Care Team (Late st Contact Info) Description 06/18/[address] [facility] - Main Lab [address] [place] [address] Prince Le MD 38 [facility] 204 [place], [address] Nausea with vomiting, unspecified; Chronic kidney [...] LAB CHEMISTRY METHOD 06/18/2024 11:17 AM EST [facility] Potassium 4.6 3.5 - 5.5 mmol/L LAB CHEMISTRY METHOD 06/18/2024 11:17 AM [facility] LAB Chloride 102 96 - 110 mmol/L LAB CHEMISTRY METHOD 06/18/2024 11:17 AM [facility] CO2 32 21 - 32 mmol/L LAB CHEMISTRY METHOD 06/18/2024 11:17 AM [facility] LAB Anion Gap 8 3 - 11 LAB CHEMISTRY METHOD 06/18/2024 11:17 AM [facility] LAB Glucose 72 70 - 100 mg/dL LAB CHEMISTRY METHOD 06/18/2024 11:17 AM [facility] LAB BUN 35(H) 5 - 25 mg/dL LAB CHEMISTRY METHOD 06/18/2024 11:17 AM [facility] LAB Creatinine 1.44(H) 0.70 - 1.30 mg/dL LAB CHEMISTRY METHOD 06/18/2024 11:17 AM [facility] LAB eGFR 53(L) >=60 mL/min/1. 73m2 LAB CHEMISTRY METHOD 06/18/2024 11:17 AM [facility] LAB Comment:Calculation based on the??Chronic Kidney Disease Epidemiology Collaboration (CKD-EPI) equation refit??without adjustment for race. BUN/Creatinine Ratio 24.3 LAB CHEMISTRY METHOD 06/18/2024 11:17 AM [facility] LAB Calcium 9.3 8.5 - 10.5 mg/dL LAB CHEMISTRY METHOD 06/18/2024 11:17 AM [facility] LAB Blood Venous blood specimen / Unknown Venipuncture / Unknown 06/18/2024 6:44 AM EST 06/18/2024 9:17 AM EST us Prince Le MD LAB BLOOD ORDERABLES Final Resul t [facility] [address] [place] [address], * (ABNORMAL) Complete blood count (06/18/2024 6:44 AM EST) WBC 8.4 4.8 - 10.8 K/[facility] LAB HEMETOLOGY METHOD 06/18/2024 10:46 AM [facility] LAB RBC 5.10 4.50 - 5.50 M/[facility] LAB HEMETOLOGY METHOD 06/18/2024 10:46 AM [facility] LAB Hemoglobin 14.2 13.5 - 17.5 g/dL LAB HEMETOLOGY METHOD 06/18/2024 10:46 AM [facility] LAB Hematocrit 43.5 42.0 - 54.0 % LAB HEMETOLOGY METHOD 06/18/2024 10:46 AM [facility] LAB MCV 86.1 79.0 - 98.0 FL LAB HEMETOLOGY METHOD 06/18/2024 10:46 AM [facility] LAB MCH 28.1 27.0 - 32.0 pcg LAB HEMETOLOGY METHOD 06/18/2024 10:46 AM [facility] LAB MCHC 32.6 32.0 - 37.0 g/dL LAB HEMETOLOGY METHOD 06/18/2024 10:46 AM [facility] LAB RDW 17.2(H) 11.0 - 15.0 % LAB HEMETOLOGY METHOD 06/18/2024 10:46 AM [facility] LAB Platelets 248 130 - 400 K/[facility] LAB HEMETOLOGY METHOD 06/18/2024 10:46 AM [facility] LAB MPV 12.7(H) 7.0 - 11.0 FL LAB HEMETOLOGY METHOD 06/18/2024 10:46 AM [facility] LAB NRBC 0.0 <1.0 % LAB HEMETOLOGY METHOD 06/18/2024 10:46 AM [facility] LAB NRBC Absolute 0.00 <0.10 K/[facility] LAB HEMETOLOGY METHOD 06/18/2024 10:46 AM [facility] LAB Blood Venous blood specimen / Unknown Venipuncture / Unknown 06/18/2024 6:44 AM EST 06/18/2024 9:17 AM EST us Prince Le MD LAB BLOOD ORDERABLES Final Resul t [facility] LAB [address] [place] [address], documented in this encounter Visit Diagnoses Diagnosis Nausea with vomiting, unspecified Chronic kidney disease, unspecified documented in this encounter Care Teams Product Safety Test Engineer Relationship Specialty Start Date End Date Tram Álvarez MD 2 [facility] , [address] Physician Associ D/B/A: [facility] JAS Duque PCP - General Internal Medicine 03/30/18 documented as of this encounter
--- OUTSIDE RECORDS SUMMARY | 2024-10-22 12:19 | XMS_ITS | Encounter Summary ---
Author Organization [facility] Address [address] [place] [address] Care Team Providers Care Food Mixer Assembler Name Role Phone Tram Álvarez MD Primary Care Provider [phone] Encounter Details Date Type Department Care Team (Late st Contact Info) Description 08/26/2024 Lab Requisition [facility] - Main Lab 299 [facility] [place] [address] Prince Le MD 38 [facility] 204 [place], [address] Type 2 diabetes mellitus without complications [...] mg/dL LAB CHEMISTRY METHOD 08/27/2024 9:27 AM [facility] LAB Triglycerides 249(H) 0 - 150 mg/dL LAB CHEMISTRY METHOD 08/27/2024 9:27 AM [facility] LAB HDL 30(L) >=40 mg/dL LAB CHEMISTRY METHOD 08/27/2024 9:27 AM [facility] LAB LDL Calculated 16 0 - 100 mg/dL LAB CHEMISTRY METHOD 08/27/2024 9:27 AM [facility] LAB VLDL Cholesterol Maikel 49.8 mg/dL LAB CHEMISTRY METHOD 08/27/2024 9:27 AM [facility] LAB Non HDL Chol. (LDL+VLDL) 66 <145 mg/dL LAB CHEMISTRY METHOD 08/27/2024 9:27 AM [facility] LAB Chol/HDL Ratio 3.2 0.0 - 4.4 LAB CHEMISTRY METHOD 08/27/2024 9:27 AM [facility] LAB Blood Venous blood specimen / Unknown Venipuncture / Unknown 08/27/2024 6:34 AM EST 08/27/2024 8:52 AM EST us Prince Le MD LAB BLOOD ORDERABLES Final Resul t [facility] [address] [place] [address], * (ABNORMAL) C-reactive protein (08/27/2024 6:34 AM EST) C-Reactive Protein 1.47(H) <=0.50 mg/dL LAB CHEMISTRY METHOD 08/27/2024 9:27 AM [facility] LAB Blood Venous blood specimen / Unknown Venipuncture / Unknown 08/27/2024 6:34 AM EST 08/27/2024 8:52 AM EST us Prince Le MD LAB BLOOD ORDERABLES Final Resul t [facility] [address] [place] [address], [place] [phone] * (ABNORMAL) Comprehensive metabolic panel (08/27/2024 6:34 AM EST) Sodium 139 133 - 145 mmol/L LAB CHEMISTRY METHOD 08/27/2024 9:27 AM [facility] LAB Potassium 4.6 3.5 - 5.5 mmol/L LAB CHEMISTRY METHOD 08/27/2024 9:27 AM [facility] LAB Chloride 105 96 - 110 mmol/L LAB CHEMISTRY METHOD 08/27/2024 9:27 AM [facility] LAB CO2 31 21 - 32 mmol/L LAB CHEMISTRY METHOD 08/27/2024 9:27 AM [facility] LAB Anion Gap 3 3 - 11 LAB CHEMISTRY METHOD 08/27/2024 9:27 AM [facility] LAB Glucose 112(H) 70 - 100 mg/dL LAB CHEMISTRY METHOD 08/27/2024 9:27 AM [facility] BUN 19 5 - 25 mg/dL LAB CHEMISTRY METHOD 08/27/2024 9:27 AM [facility] LAB Creatinine 0.71 0.70 - 1.30 mg/dL LAB CHEMISTRY METHOD 08/27/2024 9:27 AM [facility] LAB eGFR 100 >=60 mL/min/1. 73m2 LAB CHEMISTRY METHOD 08/27/2024 9:27 AM [facility] LAB Comment:Calculation based on the??Chronic Kidney Disease Epidemiology Collaboration (CKD-EPI) equation refit??without adjustment for race. BUN/Creatinine Ratio 26.8 LAB CHEMISTRY METHOD 08/27/2024 9:27 AM [facility] LAB Calcium 9.5 8.5 - 10.5 mg/dL LAB CHEMISTRY METHOD 08/27/2024 9:27 AM [facility] LAB AST (SGOT) 19 10 - 42 unit/L LAB CHEMISTRY METHOD 08/27/2024 9:27 AM [facility] ALT (SGPT) 29 10 - 60 unit/L LAB CHEMISTRY METHOD 08/27/2024 9:27 AM [facility] Alkaline Phosphatase 53 42 - 121 unit/L LAB CHEMISTRY METHOD 08/27/2024 9:27 AM [facility] Total Protein 6.5 6.0 - 8.0 g/dL LAB CHEMISTRY METHOD 08/27/2024 9:27 AM [facility] LAB Albumin 3.2 3.2 - 5.0 g/dL LAB CHEMISTRY METHOD 08/27/2024 9:27 AM [facility] Total Bilirubin 0.6 0.0 - 1.4 mg/dL LAB CHEMISTRY METHOD 08/27/2024 9:27 AM [facility] LAB Blood Venous blood specimen / Unknown Venipuncture / Unknown 08/27/2024 6:34 AM EST 08/27/2024 8:52 AM EST us Prince Le MD LAB BLOOD ORDERABLES Final Resul t [facility] [address] [place] [address], * (ABNORMAL) Complete blood count (08/27/2024 6:34 AM EST) WBC 12.7(H) 4.8 - 10.8 K/mcL LAB HEMETOLOGY METHOD 08/27/2024 9:04 AM [facility] LAB RBC 3.80(L) 4.50 - 5.50 M/mcL LAB HEMETOLOGY METHOD 08/27/2024 9:04 AM [facility] LAB Hemoglobin 10.9(L) 13.5 - 17.5 g/dL LAB HEMETOLOGY METHOD 08/27/2024 9:04 AM [facility] LAB Hematocrit 34.6(L) 42.0 - 54.0 % LAB HEMETOLOGY METHOD 08/27/2024 9:04 AM [facility] LAB MCV 91.5 79.0 - 98.0 FL LAB HEMETOLOGY METHOD 08/27/2024 9:04 AM [facility] LAB MCH 28.8 27.0 - 32.0 pcg LAB HEMETOLOGY METHOD 08/27/2024 9:04 AM [facility] LAB MCHC 31.5(L) 32.0 - 37.0 g/dL LAB HEMETOLOGY METHOD 08/27/2024 9:04 AM [facility] LAB RDW 20.3(H) 11.0 - 15.0 % LAB HEMETOLOGY METHOD 08/27/2024 9:04 AM [facility] LAB Platelets 422(H) 130 - 400 K/mcL LAB HEMETOLOGY METHOD 08/27/2024 9:04 AM [facility] LAB MPV 12.5(H) 7.0 - 11.0 FL LAB HEMETOLOGY METHOD 08/27/2024 9:04 AM [facility] LAB NRBC 0.0 <1.0 % LAB HEMETOLOGY METHOD 08/27/2024 9:04 AM [facility] LAB NRBC Absolute 0.00 <0.10 K/mcL LAB HEMETOLOGY METHOD 08/27/2024 9:04 AM [facility] LAB Blood Venous blood specimen / Unknown Venipuncture / Unknown 08/27/2024 6:34 AM EST 08/27/2024 8:52 AM EST us Prince Le MD LAB BLOOD ORDERABLES Final Resul t [facility] [address] [place] [address], documented in this encounter Visit Diagnoses Diagnosis Type 2 diabetes mellitus without complications (CMS/HCC V24, CMS/HCC V28) documented in this encounter Care Teams Food Mixer Assembler Relationship Specialty Start Date End Date Tram Álvarez MD 2 [facility] , [address] [facility] Physician Associ D/B/A: [facility] [place], [place] PCP - General Internal Medicine 03/30/18 documented as of this encounter
--- OUTSIDE RECORDS SUMMARY | 2024-10-22 12:19 | XMS_ITS | Encounter Summary ---
Author Organization [facility] Address [address] [place] [address] Care Team Providers Care Laborer Yard Name Role Phone Tram Álvarez MD Primary Care Provider Encounter Details Date Type Department Care Team (Late st Contact Info) Description 10/18/[address] [facility] - Main Lab [address] [place] [address] Preeti Lujan MD [address] [phone] Sepsis, unspecified organism (CMS/HCC V24, CMS/HCC V28) [...] LAB CHEMISTRY METHOD 10/18/2024 1:15 PM EDT [facility] LAB Potassium 4.0 3.5 - 5.5 mmol/L LAB CHEMISTRY METHOD 10/18/2024 1:15 PM [facility] LAB Chloride 113(H) 96 - 110 mmol/L LAB CHEMISTRY METHOD 10/18/2024 1:15 PM [facility] LAB CO2 22 21 - 32 mmol/L LAB CHEMISTRY METHOD 10/18/2024 1:15 PM [facility] LAB Anion Gap 7 3 - 11 LAB CHEMISTRY METHOD 10/18/2024 1:15 PM [facility] LAB Glucose 114(H) 70 - 100 mg/dL LAB CHEMISTRY METHOD 10/18/2024 1:15 PM [facility] LAB BUN 12 5 - 25 mg/dL LAB CHEMISTRY METHOD 10/18/2024 1:15 PM [facility] LAB Creatinine 0.58(L) 0.70 - 1.30 mg/dL LAB CHEMISTRY METHOD 10/18/2024 1:15 PM [facility] LAB eGFR 106 >=60 mL/min/1. 73m2 LAB CHEMISTRY METHOD 10/18/2024 1:15 PM [facility] LAB Comment:Calculation based on the??Chronic Kidney Disease Epidemiology Collaboration (CKD-EPI) equation refit??without adjustment for race. BUN/Creatinine Ratio 20.7 LAB CHEMISTRY METHOD 10/18/2024 1:15 PM [facility] LAB Calcium 8.7 8.5 - 10.5 mg/dL LAB CHEMISTRY METHOD 10/18/2024 1:15 PM [facility] LAB Blood Venous blood specimen / Unknown Venipuncture / Unknown 10/18/2024 9:03 AM EDT 10/18/2024 11:02 AM EDT us Preeti Lujan MD LAB BLOOD ORDERABLES Fin al Result [facility] [address] [place], [place] [address] [phone] * (ABNORMAL) Complete blood count (10/18/2024 9:03 AM EDT) [facility] WBC 5.9 4.8 - 10.8 K/mcL LAB HEMETOLOGY METHOD [facility] RBC 3.40(L) 4.50 - 5.50 M/mcL LAB HEMETOLOGY METHOD 10/18/2024 1:[facility] Hemoglobin 10.1(L) 13.5 - 17.5 g/dL LAB HEMETOLOGY METHOD 10/18/2024 1:35 PM [facility] LAB Hematocrit 32.3(L) 42.0 - 54.0 % LAB HEMETOLOGY METHOD 10/18/2024 1:35 PM [facility] LAB MCV 96.4 79.0 - 98.0 FL LAB HEMETOLOGY METHOD 10/18/2024 1:35 PM EDT [facility] LAB MCH 30.1 27.0 - 32.0 pcg LAB HEMETOLOGY METHOD 10/18/2024 1:35 PM [facility] MCHC 31.3(L) 32.0 - 37.0 g/dL LAB HEMETOLOGY METHOD 10/18/2024 1:35 PM [facility] LAB RDW 18.2(H) 11.0 - 15.0 % LAB HEMETOLOGY METHOD 10/18/2024 1:[facility] Platelets 275 130 - 400 K/mcL LAB HEMETOLOGY METHOD 10/18/2024 1:35 PM [facility] MPV 13.2(H) 7.0 - 11.0 FL LAB HEMETOLOGY METHOD 10/18/2024 1:35 PM [facility] LAB NRBC 0.0 <1.0 % LAB HEMETOLOGY METHOD 10/18/2024 1:35 PM EDT [facility] LAB NRBC Absolute 0.00 <0.10 K/mcL LAB HEMETOLOGY METHOD 10/18/2024 1:35 PM EDT [facility] LAB Blood Venous blood specimen / Unknown Venipuncture / Unknown 10/18/2024 9:03 AM EDT 10/18/2024 11:02 AM EDT us Preeti Lujan MD LAB BLOOD ORDERABLES Fin al Result [facility] [address] [place] [address], documented in this encounter Visit Diagnoses Diagnosis Sepsis, unspecified organism (CMS/HCC V24, CMS/HCC V28) documented in this encounter Care Teams Laborer Yard Relationship Specialty Start Date End Date Tram Álvarez MD 2 [facility] , [address] [facility] Physician Associ D/B/A: [facility] JAS Duque PCP - General Internal Medicine 03/30/18 documented as of this encounter
--- OUTSIDE RECORDS SUMMARY | 2024-10-22 12:19 | XMS_ITS | Encounter Summary ---
Author Organization [facility] Address [address] [place] [address] Care Team Providers Care Treer Name Role Phone Tram Álvarez MD Primary Care Provider [phone] Encounter Details Date Type Department Care Team (Late st Contact Info) Description 05/14/2024 Lab Requisition [facility] - Main Lab [address] [place] [address] Prince Le MD 38 [facility] 204 [place], [address] Essential (primary) hypertension Social History Tobacco [...] LAB CHEMISTRY METHOD 05/17/2024 10:43 AM EST [facility] Potassium 4.5 3.5 - 5.5 mmol/L LAB CHEMISTRY METHOD 05/17/2024 10:43 AM EST [facility] LAB Chloride 110 96 - 110 mmol/L LAB CHEMISTRY METHOD 05/17/2024 10:43 AM [facility] LAB CO2 27 21 - 32 mmol/L LAB CHEMISTRY METHOD 05/17/2024 10:43 AM [facility] LAB Anion Gap 6 3 - 11 LAB CHEMISTRY METHOD 05/17/2024 10:43 AM [facility] LAB Glucose 99 70 - 100 mg/dL LAB CHEMISTRY METHOD 05/17/2024 10:43 AM [facility] LAB BUN 37(H) 5 - 25 mg/dL LAB CHEMISTRY METHOD 05/17/2024 10:43 AM [facility] LAB Creatinine 1.29 0.70 - 1.30 mg/dL LAB CHEMISTRY METHOD 05/17/2024 10:43 AM [facility] LAB eGFR 60 >=60 mL/min/1. 73m2 LAB CHEMISTRY METHOD 05/17/2024 10:43 AM [facility] LAB Comment:Calculation based on the??Chronic Kidney Disease Epidemiology Collaboration (CKD-EPI) equation refit??without adjustment for race. BUN/Creatinine Ratio 28.7 LAB CHEMISTRY METHOD 05/17/2024 10:43 AM [facility] LAB Calcium 9.3 8.5 - 10.5 mg/dL LAB CHEMISTRY METHOD 05/17/2024 10:43 AM [facility] LAB Blood Venous blood specimen / Unknown Venipuncture / Unknown 05/17/2024 6:41 AM EST 05/17/2024 9:49 AM EST us Prince Le MD LAB BLOOD ORDERABLES Final Resul t [facility] [address] [place] [address], * (ABNORMAL) Complete blood count (05/17/2024 6:41 AM EST) WBC 9.0 4.8 - 10.8 K/mcL LAB HEMETOLOGY METHOD 05/17/2024 10:23 AM [facility] LAB RBC 5.50 4.50 - 5.50 M/mcL LAB HEMETOLOGY METHOD 05/17/2024 10:23 AM [facility] Hemoglobin 15.0 13.5 - 17.5 g/dL LAB HEMETOLOGY METHOD 05/17/2024 10:23 AM [facility] LAB Hematocrit 48.3 42.0 - 54.0 % LAB HEMETOLOGY METHOD 05/17/2024 10:23 AM [facility] LAB MCV 88.0 79.0 - 98.0 FL LAB HEMETOLOGY METHOD 05/17/2024 10:23 AM [facility] MCH 27.3 27.0 - 32.0 pcg LAB HEMETOLOGY METHOD 05/17/2024 10:23 AM [facility] LAB MCHC 31.1(L) 32.0 - 37.0 g/dL LAB HEMETOLOGY METHOD 05/17/2024 10:23 AM [facility] LAB RDW 16.6(H) 11.0 - 15.0 % LAB HEMETOLOGY METHOD 05/17/2024 10:23 AM [facility] Platelets 240 130 - 400 K/mcL LAB HEMETOLOGY METHOD 05/17/2024 10:23 AM [facility] MPV 13.4(H) 7.0 - 11.0 FL LAB HEMETOLOGY METHOD 05/17/2024 10:23 AM [facility] NRBC 0.0 <1.0 % LAB HEMETOLOGY METHOD 05/17/2024 10:23 AM [facility] NRBC Absolute 0.00 <0.10 K/mcL LAB HEMETOLOGY METHOD 05/17/2024 10:23 AM [facility] LAB Blood Venous blood specimen / Unknown Venipuncture / Unknown 05/17/2024 6:41 AM EST 05/17/2024 9:51 AM EST us Prince Le MD LAB BLOOD ORDERABLES Final Resul t [facility] [address] [place] [address], [place] [phone] documented in this encounter Visit Diagnoses Diagnosis Essential (primary) hypertension Unspecified essential hypertension documented in this encounter Care Teams Treer Relationship Specialty Start Date End Date Tram Álvarez MD 2 [facility] , [address] [facility] Physician Associ D/B/A: [facility] JAS Duque PCP - General Internal Medicine 03/30/18 documented as of this encounter
--- OUTSIDE RECORDS SUMMARY | 2024-10-22 12:19 | XMS_ITS | Encounter Summary ---
Author Organization [facility] Address [address] [place] [address] Care Team Providers Care Sales Representative Adding Machines Name Role Phone Tram Álvarez MD Primary Care Provider [phone] Encounter Details Date Type Department Care Team (Late st Contact Info) Description 10/07/2024 Lab Requisition [facility] - Main Lab 299 [facility] [place] [address] Prince Le MD 38 [facility] 204 [place], [address] Type 2 diabetes mellitus without complications [...] V28) documented in this encounter Care Teams Sales Representative Adding Machines Relationship Specialty Start Date End Date rTam Álvarez MD [address] [place] [address] , [address] [facility] Physician Associ D/B/A: [facility] [place], [place] PCP - General Internal Medicine 03/30/18 documented as of this encounter
--- OUTSIDE RECORDS SUMMARY | 2024-10-22 12:20 | XMS_ITS | Encounter Summary ---
Author Organization [facility] Address [address] [place] [address] Care Team Providers Care Senior Loan Processor Name Role Phone Tram Álvarez MD Primary Care Provider [phone] Encounter Details Date Type Department Care Team (Late st Contact Info) Description 09/16/2024 Lab Requisition [facility] - Main Lab [address] [facility] [place] [address] Prince Le MD 38 [facility] [address] [place], [address] Type 2 diabetes mellitus without complications [...] mg/dL LAB CHEMISTRY METHOD 09/17/2024 11:32 AM [facility] Blood Venous blood specimen / Unknown Venipuncture / Unknown 09/17/2024 8:06 AM EDT 09/17/2024 10:22 AM EDT us Prince Le MD LAB BLOOD ORDERABLES Final Resul t [facility] [address] [place] [address], [place] [phone] * (ABNORMAL) Comprehensive metabolic panel (09/17/2024 8:06 AM EDT) Sodium 139 133 - 145 mmol/L LAB CHEMISTRY METHOD 09/17/2024 11:27 AM [facility] Potassium 4.6 3.5 - 5.5 mmol/L LAB CHEMISTRY METHOD 09/17/2024 11:27 AM [facility] Chloride 103 96 - 110 mmol/L LAB CHEMISTRY METHOD 09/17/2024 11:27 AM [facility] CO2 30 21 - 32 mmol/L LAB CHEMISTRY METHOD 09/17/2024 11:27 AM [facility] Anion Gap 6 3 - 11 LAB CHEMISTRY METHOD 09/17/2024 11:27 AM [facility] Glucose 93 70 - 100 mg/dL LAB CHEMISTRY METHOD 09/17/2024 11:27 AM [facility] BUN 21 5 - 25 mg/dL LAB CHEMISTRY METHOD 09/17/2024 11:27 AM [facility] Creatinine 0.97 0.70 - 1.30 mg/dL LAB CHEMISTRY METHOD 09/17/2024 11:27 AM [facility] LAB eGFR 85 >=60 mL/min/1. 73m2 LAB CHEMISTRY METHOD 09/17/2024 11:27 AM [facility] LAB Comment:Calculation based on the??Chronic Kidney Disease Epidemiology Collaboration (CKD-EPI) equation refit??without adjustment for race. BUN/Creatinine Ratio 21.6 LAB CHEMISTRY METHOD 09/17/2024 11:27 AM [facility] Calcium 9.0 8.5 - 10.5 mg/dL LAB CHEMISTRY METHOD 09/17/2024 11:27 AM [facility] AST (SGOT) 20 10 - 42 unit/L LAB CHEMISTRY METHOD 09/17/2024 11:27 AM [facility] ALT (SGPT) 19 10 - 60 unit/L LAB CHEMISTRY METHOD 09/17/2024 11:27 AM [facility] Alkaline Phosphatase 67 42 - 121 unit/L LAB CHEMISTRY METHOD 09/17/2024 11:27 AM [facility] Total Protein 6.1 6.0 - 8.0 g/dL LAB CHEMISTRY METHOD 09/17/2024 11:27 AM [facility] Albumin 2.8(L) 3.2 - 5.0 g/dL LAB CHEMISTRY METHOD 09/17/2024 11:27 AM [facility] Total Bilirubin 0.4 0.0 - 1.4 mg/dL LAB CHEMISTRY METHOD 09/17/2024 11:27 AM [facility] Blood Venous blood specimen / Unknown Venipuncture / Unknown 09/17/2024 8:06 AM EDT 09/17/2024 10:22 AM EDT us Prince Le MD LAB BLOOD ORDERABLES Final Resul t [facility] [address] [place] [address], * (ABNORMAL) Complete blood count (09/17/2024 8:06 AM EDT) WBC 9.2 4.8 - 10.8 K/mcL LAB HEMETOLOGY METHOD 09/17/2024 10:35 AM [facility] RBC 3.80(L) 4.50 - 5.50 M/mcL LAB HEMETOLOGY METHOD 09/17/2024 10:35 AM [facility] Hemoglobin 11.3(L) 13.5 - 17.5 g/dL LAB HEMETOLOGY METHOD 09/17/2024 10:35 AM [facility] Hematocrit 35.1(L) 42.0 - 54.0 % LAB HEMETOLOGY METHOD 09/17/2024 10:35 AM [facility] LAB MCV 93.6 79.0 - 98.0 FL LAB HEMETOLOGY METHOD 09/17/2024 10:35 AM [facility] MCH 30.1 27.0 - 32.0 pcg LAB HEMETOLOGY METHOD 09/17/2024 10:35 AM [facility] LAB MCHC 32.2 32.0 - 37.0 g/dL LAB HEMETOLOGY METHOD 09/17/2024 10:35 AM [facility] RDW 17.5(H) 11.0 - 15.0 % LAB HEMETOLOGY METHOD 09/17/2024 10:35 AM [facility] Platelets 352 130 - 400 K/mcL LAB HEMETOLOGY METHOD 09/17/2024 10:35 AM [facility] MPV 11.5(H) 7.0 - 11.0 FL LAB HEMETOLOGY METHOD 09/17/2024 10:35 AM [facility] NRBC 0.0 <1.0 % LAB HEMETOLOGY METHOD 09/17/2024 10:35 AM [facility] LAB NRBC Absolute 0.00 <0.10 K/[facility] LAB HEMETOLOGY METHOD 09/17/2024 10:35 AM EDT [facility] Blood Venous blood specimen / Unknown Venipuncture / Unknown 09/17/2024 8:06 AM EDT 09/17/2024 10:22 AM EDT us Prince Le MD LAB BLOOD ORDERABLES Final Resul t [facility] [address] [place] [address], documented in this encounter Visit Diagnoses Diagnosis Type 2 diabetes mellitus without complications (CMS/HCC V24, CMS/HCC V28) documented in this encounter Care Teams Senior Loan Processor Relationship Specialty Start Date End Date Tram Álvarez MD [address] [facility] , [address] Physician Associ D/B/A: [facility] [place], [place] PCP - General Internal Medicine 03/30/18 documented as of this encounter
--- OUTSIDE RECORDS SUMMARY | 2024-10-22 12:20 | XMS_ITS | Encounter Summary ---
Author Organization [facility] Address [address] [place] [address] Care Team Providers Care Shop Clerk Name Role Phone Tram Álvarez MD Primary Care Provider [phone] Encounter Details Date Type Department Care Team (Late st Contact Info) Description 09/23/2024 Lab Requisition [facility] - Main Lab [address] [facility] [place] [address] Prince Le MD 38 [facility] [address] [place], [address] Type 2 diabetes mellitus without complications [...] LAB CHEMISTRY METHOD 09/24/2024 12:40 PM EDT [facility] Blood Venous blood specimen / Unknown Venipuncture / Unknown 09/24/2024 5:45 AM EDT 09/24/2024 9:53 AM EDT us Prince Le MD LAB BLOOD ORDERABLES Final Resul t [facility] [address] [place] [address], [place] [phone] * (ABNORMAL) Comprehensive metabolic panel (09/24/2024 5:45 AM EDT) Sodium 140 133 - 145 mmol/L LAB CHEMISTRY METHOD 09/24/2024 12:42 PM [facility] Potassium 4.8 3.5 - 5.5 mmol/L LAB CHEMISTRY METHOD 09/24/2024 12:42 PM [facility] Chloride 107 96 - 110 mmol/L LAB CHEMISTRY METHOD 09/24/2024 12:42 PM [facility] CO2 27 21 - 32 mmol/L LAB CHEMISTRY METHOD 09/24/2024 12:42 PM [facility] LAB Anion Gap 6 3 - 11 LAB CHEMISTRY METHOD 09/24/2024 12:42 PM [facility] LAB Glucose 81 70 - 100 mg/dL LAB CHEMISTRY METHOD 09/24/2024 12:42 PM [facility] BUN 18 5 - 25 mg/dL LAB CHEMISTRY METHOD 09/24/2024 12:42 PM [facility] Creatinine 0.80 0.70 - 1.30 mg/dL LAB CHEMISTRY METHOD 09/24/2024 12:42 PM [facility] LAB eGFR 96 >=60 mL/min/1. 73m2 LAB CHEMISTRY METHOD 09/24/2024 12:42 PM [facility] LAB Comment:Calculation based on the??Chronic Kidney Disease Epidemiology Collaboration (CKD-EPI) equation refit??without adjustment for race. BUN/Creatinine Ratio 22.5 LAB CHEMISTRY METHOD 09/24/2024 12:42 PM EDT [facility] Calcium 8.9 8.5 - 10.5 mg/dL LAB CHEMISTRY METHOD 09/24/2024 12:42 PM [facility] AST (SGOT) 15 10 - 42 unit/L LAB CHEMISTRY METHOD 09/24/2024 12:42 PM [facility] ALT (SGPT) 16 10 - 60 unit/L LAB CHEMISTRY METHOD 09/24/2024 12:42 PM [facility] LAB Alkaline Phosphatase 51 42 - 121 unit/L LAB CHEMISTRY METHOD 09/24/2024 12:42 PM [facility] Total Protein 6.1 6.0 - 8.0 g/dL LAB CHEMISTRY METHOD 09/24/2024 12:42 PM [facility] Albumin 2.7(L) 3.2 - 5.0 g/dL LAB CHEMISTRY METHOD 09/24/2024 12:42 PM [facility] Total Bilirubin 0.4 0.0 - 1.4 mg/dL LAB CHEMISTRY METHOD 09/24/2024 12:42 PM [facility] Blood Venous blood specimen / Unknown Venipuncture / Unknown 09/24/2024 5:45 AM EDT 09/24/2024 9:53 AM EDT us Prince Le MD LAB BLOOD ORDERABLES Final Resul t [facility] [address] [place] [address], * (ABNORMAL) Complete blood count (09/24/2024 5:45 AM EDT) WBC 7.3 4.8 - 10.8 K/mcL LAB HEMETOLOGY METHOD 09/24/2024 10:05 AM [facility] RBC 3.70(L) 4.50 - 5.50 M/mcL LAB HEMETOLOGY METHOD 09/24/2024 10:05 AM [facility] Hemoglobin 11.0(L) 13.5 - 17.5 g/dL LAB HEMETOLOGY METHOD 09/24/2024 10:05 AM [facility] Hematocrit 35.4(L) 42.0 - 54.0 % LAB HEMETOLOGY METHOD 09/24/2024 10:05 AM [facility] LAB MCV 96.2 79.0 - 98.0 FL LAB HEMETOLOGY METHOD 09/24/2024 10:05 AM [facility] LAB MCH 29.9 27.0 - 32.0 pcg LAB HEMETOLOGY METHOD 09/24/2024 10:05 AM [facility] LAB MCHC 31.1(L) 32.0 - 37.0 g/dL LAB HEMETOLOGY METHOD 09/24/2024 10:05 AM [facility] RDW 16.4(H) 11.0 - 15.0 % LAB HEMETOLOGY METHOD 09/24/2024 10:05 AM [facility] Platelets 480(H) 130 - 400 K/mcL LAB HEMETOLOGY METHOD 09/24/2024 10:05 AM [facility] LAB MPV 12.1(H) 7.0 - 11.0 FL LAB HEMETOLOGY METHOD 09/24/2024 10:05 AM [facility] LAB NRBC 0.0 <1.0 % LAB HEMETOLOGY METHOD 09/24/2024 10:05 AM [facility] LAB NRBC Absolute 0.00 <0.10 K/mcL LAB HEMETOLOGY METHOD 09/24/2024 10:05 AM [facility] LAB Blood Venous blood specimen / Unknown Venipuncture / Unknown 09/24/2024 5:45 AM EDT 09/24/2024 9:53 AM EDT us Prince Le MD LAB BLOOD ORDERABLES Final Resul t [facility] [address] [place] [address], documented in this encounter Visit Diagnoses Diagnosis Type 2 diabetes mellitus without complications (CMS/HCC V24, CMS/HCC V28) documented in this encounter Care Teams Shop Clerk Relationship Specialty Start Date End Date Tram Álvarez MD 2 [facility] , [address] Physician Associ D/B/A: [facility] [place] PCP - General Internal Medicine 03/30/18 documented as of this encounter
--- OUTSIDE RECORDS SUMMARY | 2024-10-22 12:20 | XMS_ITS | Encounter Summary ---
Author Organization [facility] Address [address] [place] [address] Care Team Providers Care Residential Tech Name Role Phone Tram Álvarez MD Primary Care Provider Encounter Details Date Type Department Care Team (Late st Contact Info) Description 05/28/2024 Lab Requisition [facility] - Main Lab [address] [place] [address] Prince Le MD 38 [facility] [address] [place], [address] Essential (primary) hypertension Social History Tobacco [...] LAB CHEMISTRY METHOD 05/31/2024 11:37 AM EST [facility] Potassium 4.5 3.5 - 5.5 mmol/L LAB CHEMISTRY METHOD 05/31/2024 11:37 AM EST [facility] Chloride 108 96 - 110 mmol/L LAB CHEMISTRY METHOD 05/31/2024 11:37 AM [facility] CO2 28 21 - 32 mmol/L LAB CHEMISTRY METHOD 05/31/2024 11:37 AM [facility] Anion Gap 6 3 - 11 LAB CHEMISTRY METHOD 05/31/2024 11:37 AM [facility] Glucose 104(H) 70 - 100 mg/dL LAB CHEMISTRY METHOD 05/31/2024 11:37 AM [facility] BUN 25 5 - 25 mg/dL LAB CHEMISTRY METHOD 05/31/2024 11:37 AM [facility] Creatinine 1.15 0.70 - 1.30 mg/dL LAB CHEMISTRY METHOD 05/31/2024 11:37 AM [facility] LAB eGFR 69 >=60 mL/min/1. 73m2 LAB CHEMISTRY METHOD 05/31/2024 11:37 AM [facility] LAB Comment:Calculation based on the??Chronic Kidney Disease Epidemiology Collaboration (CKD-EPI) equation refit??without adjustment for race. BUN/Creatinine Ratio 21.7 LAB CHEMISTRY METHOD 05/31/2024 11:37 AM [facility] Calcium 9.2 8.5 - 10.5 mg/dL LAB CHEMISTRY METHOD 05/31/2024 11:37 AM [facility] Blood Venous blood specimen / Unknown Venipuncture / Unknown 05/31/2024 7:20 AM EST 05/31/2024 10:13 AM EST us Prince Le MD LAB BLOOD ORDERABLES Final Resul t [facility] [address] [place] [address], * (ABNORMAL) Complete blood count (05/31/2024 7:20 AM EST) WBC 8.8 4.8 - 10.8 K/mcL LAB HEMETOLOGY METHOD 05/31/2024 10:39 AM [facility] RBC 5.10 4.50 - 5.50 M/mcL LAB HEMETOLOGY METHOD 05/31/2024 10:39 AM [facility] Hemoglobin 14.2 13.5 - 17.5 g/dL LAB HEMETOLOGY METHOD 05/31/2024 10:39 AM [facility] LAB Hematocrit 44.7 42.0 - 54.0 % LAB HEMETOLOGY METHOD 05/31/2024 10:39 AM [facility] MCV 87.0 79.0 - 98.0 FL LAB HEMETOLOGY METHOD 05/31/2024 10:39 AM [facility] MCH 27.6 27.0 - 32.0 pcg LAB HEMETOLOGY METHOD 05/31/2024 10:39 AM [facility] LAB MCHC 31.8(L) 32.0 - 37.0 g/dL LAB HEMETOLOGY METHOD 05/31/2024 10:39 AM [facility] LAB RDW 16.5(H) 11.0 - 15.0 % LAB HEMETOLOGY METHOD 05/31/2024 10:39 AM [facility] Platelets 242 130 - 400 K/mcL LAB HEMETOLOGY METHOD 05/31/2024 10:39 AM [facility] MPV 12.5(H) 7.0 - 11.0 FL LAB HEMETOLOGY METHOD 05/31/2024 10:39 AM [facility] NRBC 0.0 <1.0 % LAB HEMETOLOGY METHOD 05/31/2024 10:39 AM [facility] NRBC Absolute 0.00 <0.10 K/mcL LAB HEMETOLOGY METHOD 05/31/2024 10:39 AM [facility] Blood Venous blood specimen / Unknown Venipuncture / Unknown 05/31/2024 7:20 AM EST 05/31/2024 10:16 AM EST us Prince Le MD LAB BLOOD ORDERABLES Final Resul t [facility] [address] [place] [address], [place] [phone] documented in this encounter Visit Diagnoses Diagnosis Essential (primary) hypertension Unspecified essential hypertension documented in this encounter Care Teams Residential Tech Relationship Specialty Start Date End Date Tram Álvarez MD 2 [facility] , [address] [facility] Physician Associ D/B/A: [facility] JAS Duque PCP - General Internal Medicine 03/30/18 documented as of this encounter
--- OUTSIDE RECORDS SUMMARY | 2024-10-22 12:20 | XMS_ITS | Clinical Summary ---
Author Organization [employer] Address [address] [facility] [address] [place] [address] Care Team Providers Care Fire Tender Name Role Phone Unavailable Primary Care Provider Unavailabl e Social History Tobacco Use Types Packs/Day Years Used Date Smoking Tobacco: Never Assessed Sex and Gender Information Value Date Recorded Sex Assigned at Male 05/06/2022 10:29 AM EDT Legal Sex Male 10:29 AM EDT Gender Identity Not on file Sexual Orientation Not on file Plan of Treatment Upcoming Encounters Date Type Department Care Team ([facility] st Contact Info) Description 11/15/2024 10:45 AM EDT Office Visit [facility] [address] [place] [address] Shannan Moscoso DO [address] [place] [address] Health Maintenance Due Date Last Done Comments [...]
--- OUTSIDE RECORDS SUMMARY | 2024-10-22 12:20 | XMS_ITS | Encounter Summary ---
Author Organization [facility] [address] Address [address] [place] [address] Care Team Providers Care Optometric Aide Name Role Phone Tram Álvarez MD Primary Care Provider [phone] Encounter Details Date Type Department Care Team (Late st Contact Info) Description 10/21/2024 Lab Requisition [facility] - Main Lab [address] [facility] [place] [address] Prince Le MD 38 [facility] [address] [place], [address] Type 2 diabetes mellitus without complications [...] V28) documented in this encounter Care Teams Optometric Aide Relationship Specialty Start Date End Date Tram Álvarez MD [address] [place] [address] , [address] [facility] Physician Associ D/B/A: [facility] [place], [place] PCP - General Internal Medicine 03/30/18 documented as of this encounter
--- OUTSIDE RECORDS SUMMARY | 2024-10-22 12:20 | XMS_ITS | Encounter Summary ---
Author Organization [facility] Address [address] [place] [address] Care Team Providers Care Chef'S Assistant Name Role Phone Tram Álvarez MD Primary Care Provider Encounter Details Date Type Department Care Team (Late st Contact Info) Description 10/22/2024 Lab Requisition [facility] - Main Lab [address] [facility] [place] [address] Preeti Lujan MD [address] [id number] Type 2 diabetes mellitus without complications (CMS/HCC V24, CMS/[facility] V28) Social History Tobacco Use Types Packs/Day Years Used Date Smoking Tobacco: Never Assessed Sex and Gender Information Value Date Recorded Sex Assigned at Not on file Legal Sex Male 1:13 PM EST Gender Identity Not on file Sexual Orientation Not on file documented as of this encounter Plan of Treatment Pending Results Name Type Priority Associated Diagnoses Date /Time Hemoglobin A1c Lab Routine Type 2 diabetes mellitus without complications (CMS/HCC V24, CMS/HCC V28) 10/22/2024 6:43 AM EDT documented as of this encounter Visit Diagnoses Diagnosis Type 2 diabetes mellitus without complications (CMS/HCC V24, CMS/[facility] V28) documented in this encounter Care Teams Chef'S Assistant Relationship Specialty Start Date End Date Tram Álvarez MD [address] [place] [address] , [address] Physician Associ D/B/A: [facility] [place], [place] PCP - General Internal Medicine 03/30/18 documented as of this encounter
--- OUTSIDE RECORDS SUMMARY | 2024-10-22 12:20 | XMS_ITS | Data Portability ---
Author Organization [facility], Main Office Address [address] [facility], [address] [place] [address] Care Team Providers Care Skull Splitter Name Role Phone LANG HERRERA Primary Care Provider [facility] - 4TH FLOOR OTHER [...] Address Organization Details Recorded Time Diabetes mellitus 39311455 Active 2019 YANG SWEET [address] [facility], [address], [place], [address], [facility] 0 09:29:33 Depressive disorder 37612778 Active 2019 YANG SWEET [address] [facility], [address], [place], [address], [facility] 0 09:29:39 Essential hypertensio n 18384061 Active 2019 YANG SWEET [address], [place], [address], [facility] 0 09:29:47 Hypercholes terolemia 91825453 Active 2019 YANG SWEET [address], [address], [place], [address], [facility] 0 09:29:57 Vitamin D deficiency 12045756 Active 2019 YANG SWEET [address], [address], [place], [address], [facility] 0 09:30:10 Insomnia 112366455 Active 2019 YANG SWEET [address], [address], [place], [address], [place] [facility] 0 09:30:19 Spinal stenosis of lumbar region 57484445 Active 2019 YANG SWEET [address], [address], [place], [address], [place] - [facility] 0 09:30:43 Total knee replacement Active 2022 Sonja Gibbs NP [address] , [address], [place], [address], [facility] 3 09:12:50 Acute pain of joint of knee 8487893438186 04 Active 2022 Sonja Gibbs NP [address] [facility], [address], [place], [address], [facility] 3 09:14:53 Constipatio n 31452007 Active 2022 Sonja Gibbs NP [address] [facility], [address], [place], [address], [facility] 3 10:15:39 Osteoarthri tis of knee 388127663 Active 2022 Judie Camacho MD [address] [facility], [address], [place], [address], [facility] 3 20:37:14 Chronic kidney disease stage 1 949798815 Active 2022 Judie Camacho MD [address] [facility], [address], [place], [address], [facility] 3 20:53:16 Chronic diastolic heart failure 523582413 Active 2023 Judie Camacho MD [address] [facility], [address], [place], [address], [facility] 4 21:28:14 Chronic kidney disease stage 2 476539173 Active 2023 Judie Camacho MD [address] [facility], [facility] [address], [place], [address], [facility] 4 21:28:20 Problem Notes None recorded. Procedures Surgical History Date Name Laterality Status Provider Name and Address Organization Details Recorded Time laminotomy completed YANG SWEET [address] [facility], [facility] [address], [place], [address], [facility] 01/06/2020 09:27:06 Imaging Results None recorded. Procedure Notes None recorded. Medical Equipment None Reported. Allergies Allergen ID Allergen Name Allergen Category Reaction Reaction Severity Criticality Documentation Date Start Date Code Code System Note Provider Name and Address Organization Details Recorded Time 53593 Product containin g penicilli n (product) medicatio n rash Not available Not available 01/06/2020 40814 8001 SNOMED Not Available Not Available Not [...] 71 mm[Hg] Prince Le MD [address] [facility], [address], [place], [address], [facility] 09/11/2024 11:45:45 Date Recorded Body height Body weight Heart rate Respiratory rate Body temperature Oxygen saturation Oxygen saturation in Arterial blood by Pulse oximetry Systolic blood pressure Diastolic blood pressure Provider Name and Address Organization Details Last Updated DateTime 5 198.12 cm 09482.3 g 76 /min 18 /min 98.6 [degF] 97 % 97 % 102 mm[Hg] 68 mm[Hg] Sonja Gibbs NP [address] , [address], [place], [address], [facility] 5 09:33:55 Date Recorded Body height Body mass index (BMI) Body weight Heart rate Respiratory rate Body temperature Oxygen saturation Oxygen saturation in Arterial blood by Pulse oximetry Systolic blood pressure Diastolic blood pressure Provider Name and Address Organization Details Last Updated DateTime 5 198.12 cm 19.8 kg/m2 51851.3 g 90 /min 18 /min 97.6 [degF] 97 % 97 % 102 mm[Hg] 70 mm[Hg] Sonja Gibbs NP [address] , [address], [place], [address], [facility] 5 09:48:14 Date Recorded Body height Body mass index (BMI) Body weight Heart rate Respiratory rate Body temperature Oxygen saturation Oxygen saturation in Arterial blood by Pulse oximetry Systolic blood pressure Diastolic blood pressure Provider Name and Address Organization Details Last Updated DateTime 5 198.12 cm 19.1 kg/m2 91128.7 4 g 76 /min 18 /min 97.6 [degF] 98 % 98 % 90 mm[Hg] 64 mm[Hg] Sonja Gibbs NP [address] , [address], [place], [address], [facility] 5 16:46:26 Date Recorded Heart rate Respiratory rate Body temperature Oxygen saturation Oxygen saturation in Arterial blood by Pulse oximetry Systolic blood pressure Diastolic blood pressure Provider Name and Address Organization Details Last Updated DateTime 5 76 /min 18 /min 97.6 [degF] 98 % 98 % 89 mm[Hg] 60 mm[Hg] Sonja Gibbs NP [address] , [address], [place], [address], [facility] 5 09:51:01 Date Recorded Body height Provider Name an d Address Organization Details Last Updated DateTime 10/20/2024 198.12 cm Camila Silva P [address] , [address], [place], [address], [facility] 10/20/2024 09:22:14 Social History Question Answer Notes LastModified by Organizat ion Details LastModified Time Tobacco Smoking Status Former Smoker Sonja Gibbs, DIAMOND [address] [facility], [address], [place], [address], [facility] 02/14/2023 10:11:47 Do You Have An Advance Directive? Yes FULL CODE No Dialysis And Okay To Use Nutrition-us e Hydration Information not available 02/14/2023 What Is Your Level Of Alcohol Consumption? Occasional Information not available 02/14/2023 How Much Tobacco Do You Chew? None [id number] Information not available 05/02/2020 What Is Your Code Status? Full Code Information not available 02/14/2023 Do You Or Have You Ever Used E-cigarettes Or Vape? Never Used Electronic Cigarettes [id number] Information not available 05/02/2020 Where Do You Live? Apartment Elevator Information not available 02/19/2023 Legal Guardian? No Informati on not available 02/14/2023 Do You Have A Medical Power Of Pattern Clerk? Yes [id number] Information not available 05/02/2020 What Was The [...] Used Smokeless Tobacco? Never Used Smokeless Tobacco [id number] Information not available 05/02/2020 Do You Use Any Illicit Or Recreational Drugs? No Information not available 02/14/2023 Has Tobacco Cessation Counseling Been Provided? No N/a As Pt. No Longer Smokes Information not available 02/19/2023 How Many Years Have You Smoked Tobacco? 40 [id number] Information not available 05/02/2020 Do You Have [...] Influenza, adjuvanted, quadrivalent, PF 2 [facility] 09[facility]57:53 Influenza, adjuvanted, quadrivalent, PF 3 [facility] 11:45:01 pneumococcal polysaccharide PPV23 8 completed Sade Little [facility] 05/07/2024 15:50:52 influenza, unspecified formulation 4 completed Sade Little [facility] 05/07/2024 15:51:08 SARS-COV-2 (COVID-19) vaccine, UNSPECIFIED 1 completed Sade Little [facility] 05/07/2024 15:51:23 SARS-COV-2 (COVID-19) vaccine, UNSPECIFIED 1 completed Sade Little [facility] 05/07/2024 15:51:30 SARS-COV-2 (COVID-19) vaccine, UNSPECIFIED 3 completed Sade Little [facility] 05/07/2024 15:51:38 Past Encounters Encounter ID Performer Location Encounter Start Date Encounter Closed Date Diagnosis/Indication Diagnosis SNOMED-CT Code Diagnosis ICD10 Code Diagnosis Note [id number] YANG SWEET [address] [address] 01/06/2020 09:16:35 01/10/2020 16:25:01 Spinal stenosis of lumbar region 16409180 M48.062 s/p L4-5 decompress ion 01/03/20 by [...] 10 days-appt already set up Diabetes mellitus 849288 09 E11.9 trulicity 1.5 mg q week on sundays lantus 45 units qd SSI januvia 100 mg qd monitor A1c monitor for s/s of hypo/hyper glycemia Essential hypertension 10329358 I10 amlodipine 5 mg qd benazepril 20 mg q hs and 40 mg q am HCTZ 50 mg qd monitor b/p and labs Hypercholesterolemia 136 48189 E78.2 atorvastat in 20 mg qd fenofibrat e 145 mg qd monitor labs Insomnia 618363641 G47.0 9 was on trazodone 50 mg [...] pt monitor mood Vitamin D deficiency 347 72941 E56.8 vitamin D3 1000 iu qd monitor levels [id number] Estefany Curtis MD [address] [address] 01/07/2020 07:31:48 01/10/2020 16:31:47 Depressive disorder 79531301 F32.89 sertraline 50 mg dailywill monitor Diabetes mellitus 289187 09 E11.9 Humalog per sliding scaleJanuv ia 100 mg dailyLantu s 45 mg at hsmetformi n 1000 mg bidTrulici ty 1.5 mg weeklywill monitor Essential hypertension 16782022 I10 amlodipine 5 mg dailybenaz epril 40 mg dailyHCTZ 50 mg dailywill monitor Hypercholesterolemia 136 60041 E78.00 atorvastat in 20 mg dailyfenof ibrate 145 mg dailywill monitor Spinal mg nosis of lumbar region 01249023 M48.061 s/p recent decompress ion L4-5 cyclobenza tutu 10 mg tidnortrip tyline 25 mg bid diclofenac 75 mg bidgabapen tin 300 mg bid and 600 mg at hsoxycodon e 5-10 mg q4h prnfu neurosurge ryPT/OT [id number] PALAK BECKER, DIRECTOR DECISION SUPPORT [facility] [address] [address] 01/11/2020 08:12:58 01/14/2020 14:03:39 Depressive disorder 19192107 F32.9 sertraline 50 mg daily will monitor Spinal mg nosis of lumbar region 50880496 M48.061 cyclobenza tutu 10 mg tid nortriptyl ine 25 mg bid diclofenac 75 mg bid gabapentin 300 mg bid and 600 mg at hs oxycodone 5-10 mg q4h prn fu neurosurge ry PT/OT [id number] PALAK BECKER, DIRECTOR DECISION SUPPORT [facility] [address] [address] 01/14/2020 07:57:00 01/18/2020 09:07:39 Depressive disorder 44569147 F32.9 sertraline 50 mg daily will monitor Diabetes mellitus 349781 09 E11.9 monitor poc glucose Humalog per sliding scaleJanuv ia 100 mg daily Lantus 45 mg at hs metformin 1000 mg bid Trulicity 1.5 mg weekly will monitor Essential hypertension 74041215 I10 amlodipine 5 mg dailybenaz epril 40 mg daily HCTZ 50 mg daily will monitor Hypercholesterolemia 136 19907 E78.00 atorvastat in 20 mg daily fenofibrat e 145 mg daily will monitor Spinal mg nosis of lumbar region 74315830 M48.061 cyclobenza tutu 10 mg tid nortriptyl ine 25 mg bid diclofenac 75 mg bid gabapentin 300 mg bid and 600 mg at hs oxycodone 5-10 mg q4h prn fu neurosurge ry PT/OT [id number] YANG SWEET [facility] [address] 01/17/2020 08:06:37 01/25/2020 11:54:15 Spinal stenosis of lumbar region 25110690 M48.062 s/p L4-5 decompress ion 01/03/20 by Tana diclofenac on 01/08/20-75 mg bid oxycodone 5-10 mg q 4 hrs prn cyclobenza tutu 10 mg tid neurontin 300 mg bid and 600 mg q hs follow up with surgeon on 02/15/20 and as needed Diabetes mellitus 689553 09 E11.9 trulicity 1.5 mg q week on sundays lantus 45 units qd januvia 100 mg qd follow up with PCP Essential hypertension 19296563 I10 amlodipine 5 mg qd benazepril 40 mg q am HCTZ 50 mg qd follow up with PCP Hypercholesterolemia 136 14342 E78.2 atorvastat in 20 mg qd fenofibrat e 145 mg qd follow up with PCP Insomnia 109124956 G47.0 9 follow up with PCP Depressive disorder 3548 9007 F32.89 zoloft 50 mg qd nortriptyl ine 25 mg q 12 hrs follow up with PCP Vitamin D deficiency 347 63717 E56.8 vitamin D3 1000 iu qd follow up with PCP [id number] [facility] [address] 02/14/2023 08:55:37 02/19/2023 09:34:58 Spinal stenosis of lumbar region 44380945 M48.062 s/p L4-5 decompress ion 01/03/20 by Roel knee surgery oxycodonec yclobenzap rine 10 mg bedtime prnmonitor pain Diabetes mellitus 297435 09 E11.9 cont home regimentru licity 1.5 sc at 0900 on iba 55 units sc bedtimemet formin 500 mg er bidjardian ce 25 mg qdvascepa 2 g po bidmonitor bs bid x 3 days and reeval Essential hypertension 23814685 I10 hydralazin e 10 mg po tidbenazep ril 40 mg q am (per dc instructio ns and pt on both)lisin opril 20 mg po daily (per dc instructio ns and pt on both)furos emide 20 mg po dailymonit or bp, hr Hypercholesterolemia 136 17404 E78.2 atorvastat in 20 mg qdfenofibr ate 145 mg qd Insomnia 333683781 G47.0 9 follow up with PCP Depressive disorder 8168 9007 F32.89 lorazepam 1 mg po bidmonitor for anxiety Vitamin D deficiency 347 23235 E56.8 vitamin D3 1000 iu qd Acute pain of joint of knee 6691008789 09129 M25.569 sp post op 02/11/23 total knee [...] stregth, gait trainingcb c bmp weekly Constipation 03454456 K5 9.00 post op constipati oncont docusate 100 mg po bid*start milk of magnesia 30 cc po today and q 24 hours prn constipati on [id number] Judie Camacho MD [address] [address] 02/18/2023 19:53:10 02/20/2023 08:52:13 Spinal stenosis of lumbar region 15295865 M48.062 With chronic back pain. Uses oxycodone 5 mg TID at baseline and cyclobenza tutu 10 mg qhs prnPT/OT as above.Tabitha tor pain Diabetes mellitus 509341 09 E11.9 Last HgA1C was 7.9 on 01/31/23, BS have been good since hereReport eden doesn't use all his meds regularly due to cost.Vasu nue trulicity 1.5 weekly, tresiba 55 U qd, metformin 500 mg BID, and jardiance 25 mg qdMonitor fingerstic ks BID and HgA1C as outpt. Essential hypertension 52664832 I10 BP in good control.Co ntinue hydralazin e 10 mg TID, benazepril 40 mg qd, lisinopril 20 mg qd and furosemide 20 mg qd.Monitor BP and labsUnclea r why pt is on 2 SHANNON inhibitors , but will leave for PCP to manage. Vitamin D deficiency 347 96196 E56.8 Continue vitamin D3 1000 IU qdMonitor as outpt. Constipation 39639491 K5 9.09 Will add miralax 17 gms qd and continue docusate 100 mg BID and MOM prn.Monito r bowel function Osteoarthr itis of knee 753025260 M17.12 Z96.652 Recovering slowly after LTKR.Vasu nue [...] f/u Chronic ki dney disease stage 1 376917777 N18.1 At baseline.C ontinue to avoid nephrotoxi c meds as able.Monit or labs.Renal consult prn. Hyperlipidemia 33058758 E78.49 E78.1 Last lipids in system from 02/2021, trig were still high, but TC and HDL ok.Continu e atorvastat in 20 mg qd, fenofibrat e 145 mg qd and vascepa 2 g BID.Will get lipid profile while here, then f/u with PCP as outpt. 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 was still on sertraline , but per inpt notes, not filled at either [facility] or [facility] recently.C ontinue lorazepam 1 mg BID.monito r for anxiety [id number] [facility] [address] 02/21/2023 10:00:03 02/25/2023 10:32:50 Osteoarthritis of knee 773918587 M17.12 Z96.652 LTKR originally done on ontinu [...] f/u Spinal mg nosis of lumbar region 26272151 M48.062 With chronic back pain.oxyco done 5 mg TID at baseline and cyclobenza tutu 10 mg qhs prn at baseline, now see above osteoarthr itis of knee for new pain regimenPT/ OT as above.Tabitha tor pain Diabetes mellitus 619953 09 E11.9 Last HgA1C was 7.9 on 01/31/23, BS have been good since hereContin uetrulicit y 1.5 weeklytres iba 55 U qdmetformi n 500 mg BID,jardia nce 25 mg qdMonitor fingerstic ks BID and HgA1C as outpt. Essential hypertension 70378785 I10 BP in good control. slightly high likely due to painContin uehydralaz ine 10 mg TIDbenazep ril 40 mg qdlisinopr il 20 mg qdfurosemi de 20 mg qd.Monitor BP and labsUnclea r why pt is on 2 SHANNON inhibitors , but will leave for PCP to manage. (pt on this regimen for many years and reports it works) Hyperlipidemia 95114065 E78.49 E78.1 Last lipids in system from 02/2021, trig were still high, but TC and HDL ok.Continu eatorvasta tin 20 mg qdfenofibr ate 145 mg qdvascepa 2 g BID.lipid profile pendingf/u with PCP as outpt. Mixed anxi ety and depressive disorder 997139308 F41.8 Per pt. was still on sertraline , but per inpt notes, not filled at either [facility] or [facility] recently.C ontinuelor azepam 1 mg BID.monito r for anxiety Vitamin D deficiency 347 99866 E56.8 Continuevi tamin D3 1000 IU qdMonitor as outpt. Constipation 91282947 K5 9.09 with hard stools per report latelymira lax 17 gms qddocusate 100 mg BIDMOM prn.Monito r bowel function Chronic ki dney disease stage 1 617053977 N18.1 At baseline.C ontinue to avoid nephrotoxi c meds as able.Monit or labs.Renal consult prn. [id number] Sonja Gibbs NP [address] [address] 02/24/2023 08:59:01 02/28/2023 10:19:51 Osteoarthritis of knee 683697712 M17.12 Z96.652 LTKR originally done on inc [...] on 02/[address] [place] with [place] as pt states his cheng states it is for PT)Keep aquacel dressing in place until f/u Diabetes mellitus 312697 09 E11.9 Last HgA1C was 7.9 on 01/31/23, BS have been good since hereContin uetrulicit y 1.5 weeklytres iba 55 U qdmetformi n 500 mg BID,jardia nce 25 mg qdMonitor fingerstic ks BID and HgA1C as outpt. Spinal mg nosis of lumbar region 24416721 M48.062 With chronic back pain.oxyco done 5 mg TID at baseline and cyclobenza tutu 10 mg qhs prn at baseline, now see above osteoarthr itis of knee for new pain regimenPT/ OT as above.Tabitha tor pain Essential hypertension 53814719 I10 BP slightly high likely due to painContin uehydralaz ine 10 mg TIDbenazep ril 40 mg qdlisinopr il 20 mg qdfurosemi de 20 mg qd.Monitor BP and labsUnclea r why pt is on 2 SHANNON inhibitors , but will leave for PCP to manage. (pt on this regimen for many years and reports it works) Hyperlipidemia 79689859 E78.49 E78.1 Last lipids in system from 02/2021, trig were still high, but TC and HDL ok.Continu eatorvasta tin 20 mg qdfenofibr ate 145 mg qdvascepa 2 g BID.lipid profile pendingf/u with PCP as outpt. Mixed anxi ety and depressive disorder 646946999 F41.8 Per pt. was still on sertraline , but per inpt notes, not filled at either [facility] or [facility] recently.C ontinuelor azepam 1 mg BID.monito r for anxiety Vitamin D deficiency 347 38454 E56.8 Continuevi tamin D3 1000 IU qdMonitor as outpt. Constipation 87423536 K5 9.09 with hard stools per report latelyincr ease miralax 17 gms qd to bidcont docusate 100 mg BIDMOM prn. q 24 hours if hard stools or no bmMonitor bowel function Chronic ki dney disease stage 1 733707998 N18.1 At baseline.C ontinue to avoid nephrotoxi c meds as able.Monit or labs.Renal consult prn. [id number] Sonja Gibbs NP [address] [address] 02/28/2023 08:24:09 03/03/2023 11:01:20 Osteoarthritis of knee 797740440 M17.12 Z96.652 LTKR originally done on oxy [...] and make 2 week appt today Constipation 16237929 K5 9.09 resolvingc ontmiralax 17 gms qd to biddocusat e 100 mg BIDMOM prn. q 24 hours if hard stools or no bmMonitor bowel function Diabetes mellitus 638180 09 E11.9 Last HgA1C was 7.9 on 01/31/23, BS have been good since hereContin uetrulicit y 1.5 weeklytres iba 55 U qdmetformi n 500 mg BID,jardia nce 25 mg qdMonitor fingerstic ks BID and HgA1C as outpt. Spinal mg nosis of lumbar region 90677888 M48.062 With chronic back pain.oxyco done 5 mg TID at baseline and cyclobenza tutu 10 mg qhs prn at baseline, now see above osteoarthr itis of knee for new pain regimenPT/ OT as above.Tabitha tor pain Essential hypertension 70754348 I10 BP slightly high likely due to pain, will monitor closelyCon tinuehydra lazine 10 mg TIDbenazep ril 40 mg qdlisinopr il 20 mg qdfurosemi de 20 mg qd.Monitor BP and labsUnclea r why pt is on 2 SHANNON inhibitors , but will leave for PCP to manage. (pt on this regimen for many years and reports it works) Hyperlipidemia 79164331 E78.49 E78.1 Last lipids in system from 02/2021, trig were still high, but TC and HDL ok.Continu eatorvasta tin 20 mg qdfenofibr ate 145 mg qdvascepa 2 g BID.lipid profile pendingf/u with PCP as outpt. Mixed anxi ety and depressive disorder 881125578 F41.8 Per pt. was still on sertraline , but per inpt notes, not filled at either [facility] or [facility] recently.C ontinuelor azepam 1 mg BID.monito r for anxiety Vitamin D deficiency 347 51648 E56.8 Continuevi tamin D3 1000 IU qdMonitor as outpt. Chronic ki dney disease stage 1 345607777 N18.1 At baseline.C ontinue to avoid nephrotoxi c meds as able.Monit or labs.Renal consult prn. [id number] Sonja Gibbs NP [address] [address] 03/03/2023 08:59:22 03/05/2023 08:05:09 Osteoarthritis of knee 063557873 M17.12 Z96.652 LTKR originally done on oxy [...] and make fu appt-still no note Constipation 89692413 K5 9.09 better on this regimencon tmiralax 17 gms qd to biddocusat e 100 mg BIDMOM prn. q 24 hours if hard stools or no bmMonitor bowel function Diabetes mellitus 769378 09 E11.9 Last HgA1C was 7.9 on 01/31/23, BS have been good since hereContin uetrulicit y 1.5 weeklytres iba 55 U qdmetformi n 500 mg BID,jardia nce 25 mg qdMonitor fingerstic ks BID and HgA1C as outpt. Spinal mg nosis of lumbar region 52893586 M48.062 With chronic back pain.oxyco done 5 mg TID at baseline and cyclobenza tutu 10 mg qhs prn at baseline, now see above with osteoarthr itis of knee for new pain regimenPT/ OT as above.Tabitha tor pain Essential hypertension 01451194 I10 BP slightly high likely due to pain now improving, will monitor closely 130s/70sCo ntinuehydr alazine 10 mg TIDbenazep ril 40 mg qdlisinopr il 20 mg qdfurosemi de 20 mg qd.Monitor BP and labsUnclea r why pt is on 2 SHANNON inhibitors , but will leave for PCP to manage. (pt on this regimen for many years and reports it works) Hyperlipidemia 44637195 E78.49 E78.1 Last lipids in system from 02/2021, trig were still high, but TC and HDL ok.Continu eatorvasta tin 20 mg qdfenofibr ate 145 mg qdvascepa 2 g BID.lipid profile pendingf/u with PCP as outpt. Mixed anxi ety and depressive disorder 210753176 F41.8 Per pt. was still on sertraline , but per inpt notes, not filled at either [facility] or [facility] recently.C ontinuelor azepam 1 mg BID.monito r for anxiety Chronic ki dney disease stage 1 726022935 N18.1 At baseline.C ontinue to avoid nephrotoxi c meds as able.Monit or labs.Renal consult prn. Edema of l ower extremity 437738846 R60.0 nsg and pt state bilateral feet swelling, now better this am after feet up all night, likely dependent as he is up more throughout the day 03/03 start compressio n stockings on in am off in pmmonitor [id number] Sonja Gibbs NP [facility] [address] [place] [address] 03/06/2023 11:01:35 03/11/2023 09:41:09 Osteoarthritis of knee 143254419 M17.12 Z96.652 LTKR originally done on 02/11oxycodo [...] on 02/[address] [place]ana [place] [place] appt with office as pt states his cheng states it is for PT)fu with ortho and pcp outpt and PT services amended orderpt has pain and oxycodone not availablet ramadol 100 mg po q 6 hours prn x 24 hoursmonit or Constipation 98080186 K5 9.09 miralax 17 gms qd to bid, titrate as neededdocu sate 100 mg BIDMOM prn. q 24 hours if hard stools or no bmMonitor bowel function outpt with vna pcp Diabetes mellitus 875950 09 E11.9 Last HgA1C was 7.9 on 01/31/23, BS have been good since heretrulic ity 1.5 weeklytres iba 55 U qdmetformi n 500 mg BID,jardia nce 25 mg qdMonitor fingerstic ks BID and HgA1C as outpt.foll ow with pcp outpt Spinal mg nosis of lumbar region 13414403 M48.062 With chronic back pain.oxyco done 5 mg TID at baseline(s ee increased regimen above osteoarthr itis please ) and cyclobenza tutu 10 mg qhs prn at baselinePT /OT as above.Tabitha tor pain outpt with pcp Essential hypertension 18024894 I10 BP slightly high likely due to painContin uehydralaz ine 10 mg TIDbenazep ril 40 mg qdlisinopr il 20 mg qdfurosemi de 20 mg qd.Monitor BP and labsUnclea r why pt is on 2 SHANNON inhibitors , but will leave for PCP to manage outpt. (pt on this regimen for many years and reports it works) Hyperlipidemia 49098884 E78.49 E78.1 Last lipids in system from 02/2021, trig were still high, but TC and HDL ok.Continu eatorvasta tin 20 mg qdfenofibr ate 145 mg qdvascepa 2 g BID.lipid profile pendingf/u with PCP as outpt. Mixed anxi ety and depressive disorder [id number] F41.8 Per pt. was still on sertraline , but per inpt notes, not filled at either [facility] or [facility] recently.C ontinuelor azepam 1 mg BID.monito r for anxiety outpt with pcp Vitamin D deficiency 347 33287 E56.8 Continuevi tamin D3 1000 IU qdMonitor as outpt with pcp Chronic ki dney disease stage 1 669434309 N18.1 At baseline.C ontinue to avoid nephrotoxi c meds as able.Monit or labs.Renal consult prn outpt Hypercholesterolemia 136 91736 E78.2 atorvastat in 20 mg qdfenofibr ate 145 mg qdfu with pcp outpt Insomnia 763773272 G47.0 9 follow up with PCP outpt [id number] [facility] [address] 05/07/2024 18:25:29 05/10/2024 08:52:32 Chronic diastolic heart failure 127697452 I50.32 Pt says he never had any [...] labs. Spinal mg nosis of lumbar region 24240384 M48.062 With chronic back pain. Uses oxycodone 10 mg QID at baseline (checked in [facility]).W ritten for 5 mg QID at hospital, will change back to baseline dose.Very deconditio amaury.Needs PT/OT for strengthen ing, balance, gait training, safety and function.C ontinue fall precaution s.Monitor for safety.Mon itor pain controlCel ebrex on hold. Hypercholesterolemia 136 37007 E78.2 Continue atorvastat in 20 mg qd, fenofibrat e 145 mg qd, vascepa 2 g BID, and ASA 81 mg qd.Monitor labs as outpt. Essential hypertension 42267376 I10 SBP a little high yesterday, not checked todayConti nue meds as above and amlodipine 2.5 mg qd.Monitor BP and labsDaily BPs ordered. Diabetes mellitus 335534 09 E11.9 Last HgA1C was 7.9 in 11/2023.[place] [facility] [place] ue trulicity 1.5 weekly, tresiba 35 U qd, metformin 500 mg BID, januvia 25 mg qd, and SSITresiba not yet delivered, ok to use Lantus instead tonight.Mo nitor fingerstic ks TID and HgA1C as outpt. Depressive disorder 9408 9007 F32.89 In hx.On no meds.Monit or mood.Psych consult prn. Chronic ki dney disease stage 2 750105236 N18.2 At baseline.C ontinue to avoid nephrotoxi c meds as able.Monit or labs.Renal consult prn. Benign pro static hyperplasia without outflow obstruction 924462770 N40.0 In hx, with some issues with retention at times.Cont inue tamsulosin 0.4 mg qd. [id number] MARIE TORRES NP [address] [address] 05/13/2024 13:47:03 05/14/2024 10:52:03 Chronic diastolic heart failure 691140346 I50.32 Pt says he never had any [...] 3 Spinal mg nosis of lumbar region 81834821 M48.062 With chronic back pain. Uses oxycodone 10 mg QID at baseline (checked in [facility]).W ritten for 5 mg QID at hospital, will change back to baseline dose.Very deconditio amaury.Needs PT/OT for strengthen ing, balance, gait training, safety and function.C ontinue fall precaution s.Monitor for safety.Mon itor pain controlCel ebrex on hold. Diabetes mellitus 245159 09 E11.9 Last HgA1C was 7.9 in 11/2023.[place] [facility] [place]Contin ue trulicity 1.5 weekly, tresiba 35 U qd, metformin 500 mg BID, januvia 25 mg qd, and SSITresiba not yet delivered, ok to use Lantus instead tonight.Mo nitor fingerstic ks TID and HgA1C as outpt. Essential hypertension 09975234 I10 SBP a little high yesterday, not checked todayConti nue meds as above and amlodipine 2.5 mg qd.Monitor BP and labsDaily BPs ordered. Chronic ki dney disease stage 2 264134582 N18.2 At baseline.C ontinue to avoid nephrotoxi c meds as able.Monit or labs.Renal consult prn. Hypercholesterolemia 136 18679 E78.2 Continue atorvastat in 20 mg qd, fenofibrat e 145 mg qd, vascepa 2 g BID, and ASA 81 mg qd.Monitor labs as outpt. Depressive disorder 3548 9007 F32.89 In hx.On no meds.Monit or mood.Psych consult prn. Benign pro static hyperplasia without outflow obstruction 660949178 N40.0 In hx, with some issues with retention at times.Cont inue tamsulosin 0.4 mg qd. Pain in right arm 551748 004 M79.601 New onset, x 2-3d. Denies trauma or injury.Exa m limited due to painPMR assessed as well.Plan -Check x rays and venous USOxycodon e already available for pain.Monit or closely. [id number] Sonja Gibbs, DIAMOND [facility] [address] [place] [address] 05/14/2024 11:54:20 05/17/2024 11:03:10 Chronic diastolic heart failure 687713023 I50.32 Pt's main c/o was and continues [...] today Spinal mg nosis of lumbar region 45044942 M48.062 With chronic back pain. hx of oxycodone 10 mg QID at baseline ([employer] checked in [facility]). and changed to baseline dose as hosp decreased it to 5mg QID prnVery deconditio amaury.Needs PT/OT for strengthen ing, balance, gait training, safety and function.C ontinue fall precaution s.Monitor for safety.Mon itor pain controlCel ebrex on hold. Diabetes mellitus 635779 09 E11.9 BS 127 today and stable, [facility] HgA[facility]C was 7.9 in 11/2023.Con [place] 1.5 weekly, tresiba 35 U qd, metformin 500 mg BID, januvia 25 mg qd, and SSIMonitor fingerstic ks TID and HgA1C as outpt. Essential hypertension 95747907 I10 bp stable 128/72 todayConti nue meds as above and amlodipine 2.5 mg qd.Monitor BP and labsDaily BPs ordered. Chronic ki dney disease stage 2 497084220 N18.2 At baseline.C ontinue to avoid nephrotoxi c meds as able.Monit or labs.Renal consult prn. Hypercholesterolemia 136 10265 E78.2 Continueat orvastatin 20 mg qd, fenofibrat e 145 mg qd, vascepa 2 g BID, and ASA 81 mg qd.Monitor labs as outpt. Depressive disorder 3548 9007 F32.89 In hx.On no meds.Monit or mood.Psych consult prn. Benign pro static hyperplasia without outflow obstruction 784499434 N40.0 In hx, with some issues with retention at times.Cont inuetamsul osin 0.4 mg qd. Pain in right arm 296263 004 M79.601 New onset, x 2-3d. Denies trauma or injury. feels it is improvingx rays and venous US to right arm negative for acute findingsOx ycodone for pain.05/14 seen by physiatry on 05/13 rec: tyl 1000 mg po tid and lidocaine patch, will agree and order todayMonit or closely. Dizziness 248784298 R42 pt reports dizziness today directly related to the room being hot05/14 requests to move room, decrease heat or leave facility, nursing aware and heat reduced, vitals and BS stablemoni tor closely for improvemen t or changes Tinea pedis 6671294 B35. 3 clotrimazo le 1 % cream bid x 10 daysmonito r [id number] Sonja Gibbs, DIAMOND [facility] [place] [address] 05/20/2024 07:43:04 05/21/2024 11:07:38 Pain in right arm 213203925 M79.601 New onset, x 2-3d. Denies trauma or injury. feels it is improvingx rays and venous US to right arm negative for acute findingsOx ycodone for pain.physi atry rec tyl 1000 mg po tid and lidocaine patch which is helping but remains with pain. will reconsult1 07/20 will increase cyclobenza tutu to bid todayMonit or closely. Tinea pedis 7332045 B35. 3 improving slightlycl otrimazole 1 % cream bid x 10 daysmonito r Chronic di astolic heart failure 647137070 I50.32 Pt's main c/o was and continues [...] x1 Spinal mg nosis of lumbar region 11347407 M48.062 With chronic back pain. hx of oxycodone 10 mg QID at baseline ([employer] checked in [employer] home dose).cont PT/OT for strengthen ing, balance, gait training, safety and function.C ontinue fall precaution s.Monitor for safety.Mon itor pain controlCel ebrex on hold. Diabetes mellitus 614908 09 E11.9 BS 102-182 stable, [facility] HgA1C was 7.9 in 11/2023.[place] 1.5 weekly, tresiba 35 U qd, metformin 500 mg BID, januvia 25 mg qd, and SSIMonitor fingerstic ks TID and HgA1C as outpt. Essential hypertension 23571028 I10 bp stable 126/69 todayConti nue meds as above and amlodipine 2.5 mg qd.Monitor BP and labsDaily BPs ordered. Chronic ki dney disease stage 2 929157060 N18.2 At baseline.C ontinue to avoid nephrotoxi c meds as able.Monit or labs.Renal consult prn. Hypercholesterolemia 136 55074 E78.2 Continueat orvastatin 20 mg qd, fenofibrat e 145 mg qd, vascepa 2 g BID, and ASA 81 mg qd.Monitor labs as outpt. Depressive disorder 3548 9007 F32.89 In hx.On no meds.Monit or mood.Psych consult prn. Benign pro static hyperplasia without outflow obstruction 987036446 N40.0 In hx, with some issues with retention at times.Cont inuetamsul osin 0.4 mg qd. [id number] Sonja Gibbs NP [address] [place] [address] 05/27/2024 13:47:02 05/28/2024 10:07:06 Pain in right arm 950281198 M79.601 Denies trauma or injury. feels it is improving. refuses additional meds for pain todayx rays and venous US to right arm negative for acute findingsOx ycodone for pain.physi atry rec tyl 1000 mg po tid and lidocaine patch which is helpingcyc lobenzapri ne to bid todayMonit or closely. Tinea pedis 6727387 B35. 3 improvingc lotrimazol e 1 % cream bid x 10 days to completemo nitor Chronic di astolic heart failure 384707379 I50.32 Pt's main c/o was and continues [...] above Spinal mg nosis of lumbar region 41861639 M48.062 With chronic back pain. hx of oxycodone 10 mg QID at baseline, will cont([employer] checked in [employer] home dose).cont PT/OT for strengthen ing, balance, gait training, safety and function.C ontinue fall precaution s.Monitor for safety.Mon itor pain controlCel ebrex remains on hold. Diabetes mellitus 867955 09 E11.9 BS 100s-occ 200s stable, [facility] outptLast HgA1C was 7.9 in 11/2023.Con [place] 1.5 weekly, tresiba 35 U qd, metformin 500 mg BID, januvia 25 mg qd, and SSIMonitor fingerstic ks TID and HgA1C as outpt. Essential hypertension 65111608 I10 bp stableCont inue meds as above and amlodipine 2.5 mg qd.Monitor BP and labs Chronic ki dney disease stage 2 404993753 N18.2 At baseline.C ontinue to avoid nephrotoxi c meds as able.Monit or labs.Renal consult prn. Hypercholesterolemia 136 09739 E78.2 Continueat orvastatin 20 mg qd, fenofibrat e 145 mg qd, vascepa 2 g BID, and ASA 81 mg qd.Monitor labs as outpt. Depressive disorder 3548 9007 F32.89 a little down today, wishes his progress was futher, but reports okayOn no meds.Monit or mood.Psych consult prn. Benign pro static hyperplasia without outflow obstruction 434262640 N40.0 In hx, with some issues with retention at times.Cont inuetamsul osin 0.4 mg qd. Asthenia 09604290 R53.1 remains with weakness to legs and armsPT/OT eval and treatmonit or [id number] Sonja Gibbs NP [facility] [address] 05/31/2024 10:47:07 06/02/2024 08:35:29 Pain in right arm 688364266 M79.601 Denies trauma or injury. feels it is improving. refuses additional meds for pain today but requests the oxycodone 10 mg scheduled instead of prnx rays and venous US to right arm negative for acute afvvqnsv62 /25 sched Oxycodone 10 mg po q 6 hours and dc prn doses for pain.physi atry rec tyl 1000 mg po tid and lidocaine patch which is helpingcyc lobenzapri ne bidMRI sched for 06/01 of back and hoping to get more info on status and diagnosisM onitor closely. Asthenia 74966780 R53.1 remains with weakness to legs and armsPT/OT eval and treatmonit or Depressive disorder 3547 9007 F32.89 a little down today, wishes his progress was futher, but reports okayOn no meds.Monit or mood.Psych consult prn. Chronic di astolic heart failure 410866844 I50.32 Pt's main c/o was and continues [...] stable Spinal mg nosis of lumbar region 68516582 M48.062 With chronic back pain. hx of oxycodone 10 mg QID at baseline, will cont([employer] checked in [facility] home dose). MRI sched for 06/01 of back and hoping to get more info on status and diagnosis contPT/OT for strengthen ing, balance, gait training, safety and function.C ontinue fall precaution s.Monitor for safety.Mon itor pain controlCel ebrex remains on hold. Diabetes mellitus 532346 09 E11.9 BS 100s-occ 200s stable, [facility] outptLast HgA1C was 7.9 in 11/2023.Con [place] 1.5 weekly, tresiba 35 U qd, metformin 500 mg BID, januvia 25 mg qd, and SSIMonitor fingerstic ks TID and HgA1C as outpt. Essential hypertension 44687277 I10 bp stableCont inue meds as above and amlodipine 2.5 mg qd.Monitor BP and labs Chronic ki dney disease stage 2 804391511 N18.2 At baseline.C ontinue to avoid nephrotoxi c meds as able.Monit or labs.Renal consult prn. [id number] Sonja Gibbs, DIAMOND [facility] [address] [address] 06/17/2024 08:35:00 06/18/2024 14:22:00 Spinal stenosis of lumbar region 35971209 M48.062 With chronic back pain. hx of [...] His pcp Dr Jacinto referred him to [facility] with appt 07/29/24 [...] remains on hold. Pain in right arm 387206 004 M79.601 Denies trauma or injury. feels it is improving. has decreased rom and lymphedema for some time nowcontphy siatry prn consultedc onttyl 1000 mg po tid and lidocaine patch which is helpingsch ed Oxycodone 10 mg po q 6 hours and dc prn doses for pain.cyclo benzaprine bidMRI sched for 06/01 of back results pending. nsg obtainingM onitor closely. Asthenia 90072766 R53.1 remains with weakness to left leg and right armPT/OT eval and treat prn, off regular therapymon itor Osteoarthr itis of knee 787205263 M17.12 Z96.652 LTKR originally done on 02/11remains [...] hours prn n/v x 30 days Constipation 91899456 K5 9.09 unclear why bowel meds decreased recently, now with 6 days of constipati onmiralax 17 gms prn qd, titrate as neededdocu sate 100 mg daily06/17 MOM [facility] bisacodyl supp if no results in a few hoursMonit or bowel function outpt with [facility] pcp [id number] MARIE TORRES NP [facility] [address] 06/22/2024 12:27:29 06/23/2024 09:31:59 Gastroesophageal reflux disease without esophagitis 945656493 K21.9 Using TUMS frequently for GERD/GI sx.Start pepcid 20 mg bidMonitor sx.If remain problemati c, consider trial of PPI [id number] Sonja Gibbs NP [facility] [address] [address] 06/23/2024 13:31:14 06/24/2024 12:10:49 Asthenia 60340692 R53.1 remains with weakness to left leg and right armPT/OT eval and treat prn, off regular therapymon itor Constipation 22862199 K5 9.09 unclear why bowel meds decreased recently, now with 2 days of constipati on and continues with this every couple of days give mom 30 cc and bisacodyl 10 pr supp nowcont miralax 17 gms prn daily(sche duled)cydney a plus 2 tabs dailydc docusateMo nitor bowel function Spinal mg nosis of lumbar region 79472558 M48.062 With chronic back pain. hx of [...] Apple 06/24 for right shoulder painalso 07/29/24 [facility] at 1 pm. contPT/OT for strengthen ing, balance, gait training, safety and function prnremains barrington lift at this timeContin ue fall precaution s.Monitor for safety.Mon itor pain controlCel ebrex remains on hold. Pain in right arm 124805 004 M79.601 Denies trauma or injury. feels it is improving. has decreased rom and lymphedema for some time nowcontphy siatry prn consultedc onttyl 1000 mg po tid and lidocaine patch which is helpingsch eduled Oxycodone 10 mg po q 6 hours and dc prn doses for pain.cyclo benzaprine bidMonitor closely.se e above for management Osteoarthr itis of knee 072957999 M17.12 Z96.652 LTKR originally done on 02/11remains [...] 06/17monit or Chronic di astolic heart failure 413585801 I50.32 Pt says he never had any [...] fluid status, wts and labs. Diabetes mellitus 713883 09 E11.9 Last HgA1C was 7.9 in 11/2023.[place] [facility] [place]Contin uetrulicit y 1.5 weekly, tresiba 35 U qd, metformin 500 mg BID, januvia 25 mg qd, and SSIMonitor fingerstic ks TID and HgA1C as outpt. Essential hypertension 44089991 I10 stable 133/82Cont inue meds as above and amlodipine 2.5 mg qd.Monitor BP and labsDaily BPs ordered. Depressive disorder 3548 9007 F32.89 In hx.On no meds.Monit or mood.Psych consult prn. Benign pro static hyperplasia without outflow obstruction 734405125 N40.0 In hx, with some issues with retention at times.Cont inuetamsul osin 0.4 mg qd. [id number] Sonja Gibbs NP [address] [address] 06/25/2024 10:45:21 06/28/2024 14:12:37 Asthenia 11328777 R53.1 remains with weakness to left leg and right arm06/25 right arm and left knee brace on in am and off in pm per dr anderson's ordersPT/O T eval and treat prn, off regular therapymon itor Spinal mg nosis of lumbar region 60115888 M48.062 With chronic back pain. hx of [...] and off in pmfu after MRI 07/29/24 [facility] at 1 pm sched from outside provider contPT/OT for strengthen ing, balance, gait training, safety and function prnremains barrington lift at this timeContin ue fall precaution s.Monitor for safety.Margareth mccullough pain controlCel ebrex remains on hold. Pain in right arm 790309 004 M79.601 Denies trauma or injury. feels [...] above for management Osteoarthr itis of knee 347224227 M17.12 Z96.652 LTKR originally done on 02/11remains [...] ext today on 06/17monit or Diabetes mellitus 515040 09 E11.9 Last HgA1C was 7.9 in 11/2023.[place] [facility] [place] of 58 on 06/25 and similar on 06/23, remains asymptomat icContinue trulicity 1.5 weekly, metformin 500 mg BID, januvia 25 mg qd, and SSI06/25 decrease (degludec) tresiba 30 U qd to 26 unitsMonit or fingerstic ks TID and HgA1C as outpt. [id number] MARIE TORRES NP [address] [address] 07/01/2024 11:24:41 07/02/2024 11:53:48 Constipation 88485904 K59.09 Documented BM 06/24, 06/28Pt. states no [...] to scheduled dailyTo ER if condition worsens [id number] Sonja Gibbs NP [facility] [address] [address] 07/14/2024 13:30:49 07/16/2024 10:19:43 Diabetes mellitus 41631988 E11.9 Last HgA1C was 7.9 in 11/2023.[place] endocrine [place] [facility] [place] of 44 on 07/15 and similar in past, remains asymptomat icContinue trulicity 1.5 weekly, metformin 500 mg BID, januvia 25 mg qd, and SSI1/8 decrease (degludec) tresiba 26 U qd to 20 unitsMonit or fingerstic ks TID and HgA1C as outpt.of note was on 35 units of insulin in recent past Asthenia 67329835 R53.1 remains with weakness to left leg and right arm12/20 right arm and left knee brace on in am and off in pm per dr anderson's ordersPT/O T eval and treat prn, off regular therapymon itor [id number] Sonja Gibbs NP [facility] [address] [address] 07/22/2024 14:17:32 07/23/2024 15:07:54 Constipation 56500744 K59.09 with regular bm per patient todayCurre ntly no abd. pain, no N/V.BS d3Fkpvqila e fluids, dietary fiber.cont senna plus 2 tabs qdmiralax dailyhouse bowel protocol prn Diabetes mellitus 739530 09 E11.9 Last HgA1C was 7.9 in 11/2023.[place]ol [place] endocrine [place] [facility] [place] multiple low BS in amContinue trulicity 1.5 weeklymetf ormin 500 mg BIDanuvia 25 mg qd, and SSI(deglud ec)tresiba 20 unitsMonit or fingerstic ks TID and HgA1C as outpt.(of note was on 35 units of insulin in recent past) Asthenia 35346647 R53.1 remains with weakness to left leg and right arm, and today with right leg weaknessri ght arm and left knee brace on in am and off in pm per dr anderson's ordersPT/O T eval and treat prn, off regular therapymargareth mccullough Spinal mg nosis of lumbar region 16224390 M48.062 With chronic back pain. hx of [...] off in pmfu after MRI sched 5 [facility] at 1 pm sched from outside providerco ntPT/OT for strengthen ing, balance, gait training, safety and function prnremains barrington lift at this timeContin ue fall precaution s.Monitor for safety.Margareth mccullough pain controlCel ebrex remains on hold. Pain in right arm 624691 004 M79.601 Denies trauma or injury. feels [...] above for management Osteoarthr itis of knee 730901615 M17.12 Z96.652 LTKR originally done on 02/11remains [...] concernsmo nitor Chronic di astolic heart failure 382832214 I50.32 per hosp report of CHF.he never [...] fluid status, wts and labs. Essential hypertension 26717990 I10 stableCont inue meds as above and amlodipine 2.5 mg qd.Monitor BP and labsDaily BPs ordered. Depressive disorder 3548 9007 F32.89 In hx.On no meds.Monit or mood.Psych consult prn. Benign pro static hyperplasia without outflow obstruction 367118374 N40.0 In hx, with some issues with retention at times.Cont inuetamsul osin 0.4 mg qd. Gastroesop hageal reflux disease without esophagitis 244271851 K21.9 Using TUMS frequently for GERD/GI sx. resolvingc ontpepcid 20 mg bidMonitor sx.If remain problemati c, consider trial of PPI Nausea and vomiting 1692 1999 R11.2 resolvedse e belowzofra n 4 mg po q 6 hours prn n/v x 30 days Chronic ki dney disease stage 2 718821405 N18.2 At baseline.C ontinue to avoid nephrotoxi c meds as able.Monit or labs.Renal consult prn. Hypercholesterolemia 136 37249 E78.2 Continueat orvastatin 20 mg qdfenofibr ate 145 mg qdvascepa 2 g BID,ASA 81 mg qd.Monitor labs as outpt. [id number] Sonja Gibbs NP [address] [address] 07/30/2024 08:03:45 08/03/2024 12:50:06 Spinal stenosis of lumbar region 71816790 M48.062 With chronic back pain and weakness [...] in pmfu after cervical MRI sched 07/3107/29/24 [facility] with rec:neuros urgery consult with Dr Serna 07/30 referral to [facility] ordered as recommende d, has MRI today. contPT/OT prn, currently not working with himAggios at this timeContin ue fall precaution s.Monitor for safety.Mon itor pain controlCel ebrex remains on hold. Asthenia 21864528 R53.1 remains with weakness to left leg and right arm, and today with right leg weaknessri ght arm sling and left knee brace on in am and off in pm per dr anderson's ordersPT/O T eval and treat prn, off regular therapymon itor Pain in right arm 496577 004 M79.601 Denies trauma or injury. feels [...] above for management Osteoarthr itis of knee 644032412 M17.12 Z96.652 LTKR originally done on 02/11remains [...] lower ext neg for acute concernsmo nitor [id number] Sonja Gibbs NP [facility] [address] [address] 08/04/2024 09:05:47 08/06/2024 09:42:06 Spinal stenosis of lumbar region 35582565 M48.062 With chronic back pain and weakness [...] [place] [facility]3 07/29/24 [facility] with rec:neuros urgery [...] of c3 to the superior endplate of c5[place] [place]:rich rios was rec for minimally [place] [facility] [place] 08/09 contPT/OT prn, currently not working with fl3ur at this timeContin ue fall precaution s.Monitor for safety.Mon itor pain control see belowCeleb sandip remains on hold. Asthenia 77711952 R53.1 remains with weakness to left leg and right arm, and today with right leg weaknessri ght arm sling and left knee brace on in am and off in pm per dr anderson's ordersPT/O T eval and treat prn, off regular therapymon itor Pain in right arm 907189 004 M79.601 Denies trauma or injury. feels [...] above for management Osteoarthr itis of knee 153671087 M17.12 Z96.652 LTKR originally done on 02/11remains [...] neg for acute concernsmo nitor Diabetes mellitus 719085 09 E11.9 Last HgA1C was 7.9 in 11/2023.[place]ol [place] [facility] [place] multiple low BS in am of 54, recheck BS came upContinue januvia 25 mg qdSSItruli city 1.5 weekly08/04 increase metformin 500 mg BID to 1000 mg po bid08/04 dc tresiba 20 units qhs for low BSMonitor fingerstic ks TID and HgA1C as outpt.(of note was on 35 units of insulin in recent past) Chronic pain 45034280 G8 9.29 followed by pain management here08/04 start gabapentin 100 mg po bidContinu eoxycodone 10 mg qid for painceleco xib 200 mg BIDAPAP 650 mg TID and q 4 hrs prn (NTE 3000 mg/d),Cont inue fall precaution s.Monitor for safety. Pain of left eye [id number] 001 21903 H57.12 reports left eye pain related to dropper touching his eye last nightno injuries or abnormalit y of eye notedwarm compress given at visit for comfort.mo nitor [id number] Sonja Gibbs NP [address] [place] [address] 08/09/2024 14:58:20 08/10/2024 11:35:43 Diabetes mellitus [id number] E11.9 Last HgA1C was 7.9 in 11/2023.Fol low[place] by [place] [facility] [place] low BS in am of 47, recheck BS came up to 111Continu ejanuvia 25 mg qdSSImetfo rmin 1000 mg po bid2/3 dc trulicity 1.5 weekly(not e tresiba recently dc'd)Monit or fingerstic ks TID and HgA1C as outpt.(of note was on 35 units of long acting insulin in recent past) Chronic pain 12660822 G8 9.29 followed by pain management herecontga bapentin 100 mg po bidoxycodo ne 10 mg qid for painceleco xib 200 mg BIDAPAP 650 mg TID and q 4 hrs prn (NTE 3000 mg/d),Cont inue fall precaution s.Monitor for safety. Spinal mg nosis of lumbar region [id number] M48.062 With chronic back pain and weakness reported since september or october 2023. 05/13/24 U/S done for swelling to lower right fingers both came back without fracture, dislocatio n, or thrombus.Rich rios is followed outpt by vascular for his lymphedema Dr wAan 05/14 xray right shoulder:C ONCLUSION: No acute [...] rec for minimally [place] [facility] [place] [facility] with rec:neuros urgery [...] of c3 to the superior endplate of c5.[facility] [place] referral:rich rios was rec for minimally invasive spine center [place] [facility] [place] 08/09 08/04 referral to [facility] ordered [...] see belowCeleb sandip remains on hold. Asthenia [id number] R53.1 remains with weakness to left leg and right arm, and today with right leg weaknessri ght arm sling and left knee brace on in am and off in pm per dr anderson's ordersPT/O T eval and treat prn, off regular therapymon itor Pain in right arm 260677 004 M79.601 Denies trauma or injury. feels [...] above for management Osteoarthr itis of knee [id number] M17.12 Z96.652 LTKR originally done on 02/11remains [...] lower ext neg for acute concernsmo nitor [id number] Sonja Gibbs NP [address] [address] 08/20/2024 10:30:03 08/23/2024 10:20:02 Chronic pain 06462148 G89.29 followed by pain management herecontga bapentin 100 mg po bidoxycodo ne 10 mg qid for painceleco xib 200 mg BIDAPAP 650 mg TID and q 4 hrs prn (NTE 3000 mg/d),Cont inue fall precaution s.Monitor for safety. Spinal mg nosis of lumbar region 45393697 M48.062 With chronic back pain and weakness reported since september or october 2023. 05/13/24 U/S done for swelling to lower right fingers both came back without fracture, dislocatio n, or thrombus.Rcih rios is followed outpt by vascular for [...] rec for minimally invasive spine center [place] [facility] [place] 2/3 07/29/24 [facility] with rec:neuros urgery [...] of c3 to the superior endplate of c5.[facility] [place] pt referral:h gabriel was rec for minimally invasive spine center [place] [facility] [place] 08/09 08/04 referral to [facility] ordered as recommende d with MRI results back today 08/04 from 07/30 08/09 awaiting consult from spine center08/11 fu appoint at minimally invasive spine center to discuss options08/07 Dr Aleisha padilla (neurosurg [place]) dc'/ [facility] spine center with Dr. Isabel did a [...] see belowCeleb sandip remains on hold. Asthenia [id number] R53.1 remains with weakness to left leg and right arm, and today with right leg weaknessri ght arm sling and left knee brace on in am and off in pm per dr anderson's ordersPT/O T eval and treat prn, off regular therapymon itor [id number] Sonja Gibbs NP [address] [address] 08/23/2024 09:57:33 08/24/2024 15:31:28 Spinal stenosis of lumbar region 12514212 M48.062 With chronic back pain and weakness [...] rec for minimally invasive spine center [place] [facility] [place] /07/29/24 [facility] with rec:neuros urgery [...] of c3 to the superior endplate of c5.[facility] [place] pt referral:rich rios was rec for minimally invasive spine center [place] [facility] [place] 08/09 08/04 referral to [facility] ordered as recommende d with MRI results back today 08/04 from 07/30 08/09 awaiting consult from spine center08/11 fu appoint at minimally invasive spine center to discuss options08/07 Dr Aleisha padilla (neurosurg [place]) dc' [facility] [place] center with Dr. Isabel did a [...] belowCeleb sandip remains on hold. Chronic pain 99201719 G8 9.29 followed by pain management herecontga bapentin 100 mg po bidoxycodo ne 10 mg qid for painceleco xib 200 mg BIDAPAP 650 mg TID and q 4 hrs prn (NTE 3000 mg/d),Cont inue fall precaution s.Monitor for safety. Difficulty swallowing 28 8124294 R13.10 08/23 startpredn isone 40 mg po [...] and follow labs and for diff swallowing [id number] Sonja Gibbs NP [facility] of [address] [address] 08/26/2024 10:35:53 08/27/2024 16:16:23 Spinal stenosis of lumbar region 31199473 M48.062 With chronic back pain and weakness [...] rec for minimally invasive spine center [place] [facility] [place] 2/07/29/24 [facility] with rec:neuros urgery [...] of c3 to the superior endplate of c5.[facility] [place] referral:rich rios was rec for minimally invasive spine center [place] [facility] [place] 08/09 08/04 referral to [facility] ordered as recommende d with MRI results back today 08/04 from 07/30 08/09 awaiting consult from spine center08/11 fu appoint at minimally invasive spine center to discuss options08/[address] Aleisha padilla (neurosurg [place]) dc' [facility] [place] center with Dr. Isabel did a [...] lipid profile for 08/27 Difficulty swallowing 28 5310914 R13.10 08/26 contpredni sone 40 mg po [...] as it is too big Chronic pain 89493722 G8 9.29 followed by pain management herecontga bapentin 100 mg po bidoxycodo ne 10 mg qid for painceleco xib 200 mg BIDAPAP 650 mg TID and q 4 hrs prn (NTE 3000 mg/d),Cont inue fall precaution s.Monitor for safety. Hypercholesterolemia 136 66328 E78.2 Continueat orvastatin 20 mg qdfenofibr ate 145 mg qdvascepa 2 g BID,ASA 81 mg qd.Monitor labs as outpt.lipi d profile to assess need for all meds above 08/27 [id number] Sonja Gibbs NP [address] [address] 09/09/2024 12:10:04 09/14/2024 08:43:09 Spinal stenosis of lumbar region 37918497 M48.062 With chronic back pain and weakness [...] rec for minimally invasive spine center [place] [facility] [place] 3 07/29/24 [facility] with rec:neuros urgery [...] of c3 to the superior endplate of c5.[facility] [place] referral[place]rich rios was rec for minimally invasive spine center [place] [facility] [place] 08/09 08/04 referral to [facility] ordered as recommende d with MRI results back today 08/04 from 07/30 08/09 awaiting consult from spine center2/ fu appoint at minimally invasive spine center to discuss options08/[address] Aleisha padilla (neurosurg [place]) dc'/ [facility] [place] center with Dr. Isabel did a [...] meds see below 09/09 followed up with [facility], cont with pt/ot and monitor, ? fu in 6 weeks contremain s barrington lift at this timeContin ue fall precaution s.Monitor for safety.Mon itor pain control see belowCeleb sandip remains on hold. Difficulty swallowing 28 5039511 R13.10 09/09 contcomple christin prednisone driller brake lining consult for easy to swallow foodsgluce rna tid with meals until able to tolerate foodsliqui d and puree diet until able to louise, and advancespe ech consult for diff swallowing asa resumed on 08/26monito r closely and follow labs and for diff swallowing he is not able to louise vescepa as it is too big Chronic pain 23892126 G8 9.29 followed by pain management herecontga bapentin 100 mg po bidoxycodo ne 10 mg qid for painceleco xib 200 mg BIDAPAP 650 mg TID and q 4 hrs prn (NTE 3000 mg/d),Cont inue fall precaution s.Monitor for safety. [id number] Prince Le MD [facility] of [address] [address] 09/11/2024 11:45:11 09/14/2024 09:51:44 Difficulty swallowing 224852857 R13.12 speech to followmoni tor aspiration risk and need to further adjust diet Spinal mg nosis in cervical region 23706929 M48.02 underwent anterior cervical discectomy and fusion with good effectmoni tor sxupdate surgery with concerns Essential hypertension 68664188 I10 hydralazin e 25 mg tidlasix 40 mg qdnorvasc 2.5 mg qdbenazapr il 40 mg qdmonitor bp and need to titrate [id number] Sonja Gibbs NP [address] [address] 09/22/2024 08:30:03 09/24/2024 14:43:14 Spinal stenosis in cervical region 56941300 M48.02 underwent anterior cervical discectomy and fusion with good effect with increased rom to right shoulder and remains with bilateral lower ext weakness, but reports improved feelingmon itor sxpt ot eval and treatupdat e surgery with concerns Difficulty swallowing 28 7400911 R13.12 seems to be improving. speech to followmoni tor aspiration risk and need to further adjust diet Acute left otitis media 541897567 H66.92 pt is allergic to pcn3/19sta rt levaquin 750 mg po qd x 10 days with probioticm onitor Persistent cough 2786538 02 R05.3 pt with persistant resp cough for a few weeks and now with thick green sputumwill get cxr to ro pnaalready on abx above as ordered for otitis media, but may help with this alsomonito r vitals, temp and resp statusrobi tussin prnmucinex 600 mg po bid x 10 days [id number] Sonja Gibbs NP [facility] [address] [address] 09/30/2024 09:47:39 10/04/2024 11:25:27 Persistent cough 583681187 R05.3 resolveddc robitussin prndc mucinex 600 mg po bid x 10 days Difficulty swallowing 28 2370033 R13.12 resolvedmo nitor aspiration risk and need to further adjust diet Acute left otitis media 420056621 H66.92 pt is allergic to pcncont levaquin 750 mg po qd x 10 days with probioticm onitor Spinal mg nosis in cervical region 66756165 M48.02 underwent anterior cervical discectomy and fusion with good effect with increased rom to right shoulder and remains with bilateral lower ext weakness, but reports improved feelingmon itor sxpt ot eval and treatupdat e surgery with concerns Essential hypertension 89044727 I10 bp on low side todaycont hydralazin e 25 mg tiddc norvasc 2.5 mg qdcont benazapril 40 mg qddecrease lasix to 20 mg po qdmonitor bp and need to titrate Spinal mg nosis of lumbar region 30676170 M48.062 With chronic back pain and weakness [...] rec for minimally invasive spine center [place] [facility] [place]07[place]/24 [facility] with rec:neuros urgery [...] of c3 to the superior endplate of c5.[facility] [place] referral[place]rich rios was rec for minimally invasive spine center [place] [facility] [place] 08/09 08/04 referral to [facility] ordered as mateusz german with MRI results back today 08/04 from 07/30 08/09 awaiting consult from spine center08/11 fu appoint at minimally invasive spine center to discuss options08/07 Dr Aleisha padilla (neurosurg [place]) dc'/ [facility] spine center with Dr. Isabel did a [...] meds see below 09/09 followed up with [facility], cont with pt/ot and monitor, ? fu in 6 weeks 09/30 overall improving contremain s barrington lift at this timeContin ue fall precaution s.Monitor for safety.Mon itor pain control see belowCeleb sandip remains on hold. Chronic pain 23767263 G8 9.29 followed by pain management here and pt requests to dc tylcont3/2 7 increase gabapentin from 100 mg po bid to 200mg po bid3.27 dc APAP 650 mg TIDcontoxy codone 10 mg qid for paincont tyl 650 q 4 hrs prncont cyclobenza tutu 1 tab bidContinu e fall precaution s.Monitor for safety. Hypercholesterolemia 136 30432 E78.2 pt requests to dc vascepa, will cont other medsContin ueatorvast atin 20 mg qdfenofibr ate 145 mg qdASA 81 mg qd.Monitor labs as outpt.lipi d profile on 11/10/24 to eval Benign pro static hyperplasia without outflow obstruction [id number] N40.0 In hx, with some issues with retention at times however none lately and will trial dc todaydc tamsulosin 0.4 mg qd. [id number] Sonja Gibbs NP [facility] [address] [place] [address] 10/06/2024 16:43:50 10/08/2024 14:42:40 Spinal stenosis in cervical region 01063303 M48.02 underwent anterior cervical discectomy and fusion with good effect with increased rom to right shoulder and remains with bilateral lower ext weakness, but reports improved feelingmon itor sxpt ot eval and treatupdat e surgery with concerns Essential hypertension 40837775 I10 bp on low side today 84/50 [...] titrate Spinal mg nosis of lumbar region 71771837 M48.062 With chronic back pain and weakness [...] rec for minimally invasive spine center at [facility] [place] 23 07/29/24 [facility] with rec:neuros urgery [...] of c3 to the superior endplate of c5.[facility] [place] pt referral:rich gabriel was rec for minimally invasive spine center [place] [facility] [place] 08/09 08/04 referral to [facility] ordered as recommende d with MRI results back today 08/04 from 07/30 08/09 awaiting consult from spine center2 fu appoint at minimally invasive spine center to discuss options08/07 Dr Aleisha padilla (neurosurg [place]) dc'/ [facility] [place] center with Dr. Isabel did a [...] meds see below 09/09 followed up with [facility], cont with pt/ot and monitor, ? fu in 6 weeks 09/30 overall improving 4/2 cont above care contremain s barrington lift at this timeContin ue fall precaution s.Monitor for safety.Mon itor pain control see belowCeleb sandip remains on hold. Chronic pain 36048316 G8 9.29 followed by pain management contoxycod one 10 mg qid for paincont tyl 650 q 4 hrs prncont cyclobenza tutu 10mg 1 tab bidContinu e fall precaution s.Monitor for safety. [id number] Sonja Gibbs NP [address] [address] 10/07/2024 08:31:54 10/08/2024 14:57:59 Essential hypertension 79817405 I10 bp on low side x2 days [...] BELOW Spinal mg nosis in cervical region 66314717 M48.02 underwent anterior cervical discectomy and fusion with good effect with increased rom to right shoulder and remains with bilateral lower ext weakness, but reports improved feelingmon itor sxpt ot eval and treatupdat e surgery with concerns Spinal mg nosis of lumbar region 70707474 M48.062 With chronic back pain and weakness [...] rec for minimally invasive spine center [place] [facility] [place] 08/0907/29/24 [facility] with rec:neuros urgery [...] of c3 to the superior endplate of c5.[facility] [place] pt referral:rich rios was rec for minimally invasive spine center [place] [facility] [place] 08/09 08/04 referral to [facility] ordered as mateusz d with MRI results back today 08/04 from 07/30 08/09 awaiting consult from spine center2/5 fu appoint at minimally invasive spine center to discuss options08/[address] Aleisha padilla (neurosurg [place]) dc'/13 [facility] [place] center with Dr. Isabel did a [...] meds see below 09/09 followed up with [facility], cont with pt/ot and monitor, ? fu in 6 weeks 09/30 overall improving 10/06 cont above care, with low bp see above contremain s barrington lift at this timeContin ue fall precaution s.Monitor for safety.Mon itor pain control see belowCeleb sandip remains on hold. Chronic pain 69445991 G8 9.29 followed by pain management contoxycod one 10 mg qid for paincont tyl 650 q 4 hrs prncont cyclobenza tutu 10mg 1 tab bid , hold for sbp <100Contin ue fall precaution s.Monitor for safety. Low blood pressure 02559 003 R03.1 see above without known sourceA [...] Richardson Member ID Guarantor Name 09/11/2024 1 [facility] - DOS ON OR AFTER 2022 - MEDICARE [place]VANTAGE [place]EMENT/ADV ANTAGE - PPO) Carlos Cabrera [id number] Carlos Cabrera 09/22/2024 1 [facility] - DOS ON OR AFTER 2022 - [place]/ADV ANTAGE - PPO) Carlos Cabrera [id number] Carlos Cabrera 09/30/2024 1 [facility] - DOS ON OR AFTER 2022 - [place]/ADV ANTAGE - PPO) Carlos Cabrera [id number] Carlos Cabrera 10/06/2024 1 [facility] - DOS ON OR AFTER 2022 - [place]/ADV ANTAGE - PPO) Carlos Cabrera [id number] Carlos Cabrera 10/07/2024 1 [facility] - DOS ON OR AFTER 2022 - [place]/ADV ANTAGE - PPO) Carlos Cabrera [id number] Carlos Cabrera Notes Date Note Type Note Provider Name and Address Organization Details Recorded Time 09/11/2024 text/html Patient is a 68 yo male resident due for routine rounding visit. Patient recently underwent anterior cervical discectomy and fusion with good effect. PMH significant for htn, dm, chf Prince Le MD [address] [facility], [address], [place], [address], [facility] [email or web address] 09/11/2024 11:52:10 09/22/2024 text/html Pt is seen [...] in general. Sonja Gibbs NP [address] [facility], [address], [place], [address], [facility] 09/22/2024 10:55:29 09/30/2024 text/html Pt is [...] to lower extremities today. Sonja Gibbs NP [address] [place] [address], [address], [place], [address], [facility] [employer] [facility] 09/30/2024 10:12:58 10/06/2024 text/html Pt is seen [...] adjusted accordingly. Sonja Gibbs NP [address] [facility], [address], [place], [address], [facility] [email or web address] [facility] 10/06/2024 18:02:57 10/07/2024 text/html Pt is [...] in 80s Sonja Gibbs NP [address] [facility], [address], [place], [address], [employer] [facility] 10/07/2024 13:39:06
--- OUTSIDE RECORDS SUMMARY | 2024-10-22 12:20 | XMS_ITS | Encounter Summary ---
Author Organization [facility] Address [address] [place] [address] Care Team Providers Care Technical Photographer Name Role Phone Tram Álvarez MD Primary Care Provider [phone] Encounter Details Date Type Department Care Team (Late st Contact Info) Description 09/30/2024 Lab Requisition [facility] [address] [facility] [place] [address] Prince Le MD [address] [facility] [address] [place], [address] Type 2 diabetes mellitus without complications [...] LAB CHEMISTRY METHOD 10/01/2024 11:57 AM [facility] Blood Venous blood specimen / Unknown Venipuncture / Unknown 10/01/2024 8:01 AM EDT 10/01/2024 10:24 AM EDT us Prince Le MD LAB BLOOD ORDERABLES Final Resul t [facility] [address] [place] [address], [place] [phone] * (ABNORMAL) Comprehensive metabolic panel (10/01/2024 8:01 AM EDT) Sodium 134 133 - 145 mmol/L LAB CHEMISTRY METHOD 10/01/2024 12:02 PM [facility] Potassium 4.7 3.5 - 5.5 mmol/L LAB CHEMISTRY METHOD 10/01/2024 12:02 PM [facility] Chloride 101 96 - 110 mmol/L LAB CHEMISTRY METHOD 10/01/2024 12:02 PM [facility] CO2 27 21 - 32 mmol/L LAB CHEMISTRY METHOD 10/01/2024 12:02 PM [facility] Anion Gap 6 3 - [...] 10/01/2024 12:02 PM [facility] AST (SGOT) 63(H) 10 - 42 unit/L LAB CHEMISTRY METHOD 10/01/2024 12:02 PM [facility] ALT (SGPT) 30 10 - [...] 10/01/2024 12:02 PM [facility] Blood Venous blood specimen / Unknown Venipuncture / Unknown 10/01/2024 8:01 AM EDT 10/01/2024 10:24 AM EDT us Prince Le MD LAB BLOOD ORDERABLES Final Resul t [facility] [address] [place] [address], * (ABNORMAL) Complete blood count (10/01/2024 8:01 AM EDT) WBC 7.3 4.8 - 10.8 K/mcL LAB HEMETOLOGY METHOD 10/01/2024 11:11 AM [facility] RBC 4.00(L) 4.50 - 5.50 M/mcL LAB HEMETOLOGY METHOD 10/01/2024 11:11 AM [facility] Hemoglobin 11.8(L) 13.5 - 17.5 g/dL LAB HEMETOLOGY METHOD 10/01/2024 11:11 AM [facility] Hematocrit 37.0(L) 42.0 - 54.0 % LAB HEMETOLOGY METHOD 10/01/2024 11:11 AM [facility] MCV 93.7 79.0 - 98.0 FL LAB HEMETOLOGY METHOD 10/01/2024 11:11 AM [facility] MCH 29.9 27.0 - 32.0 pcg LAB HEMETOLOGY METHOD 10/01/2024 11:11 AM [facility] MCHC 31.9(L) 32.0 - 37.0 g/dL LAB HEMETOLOGY METHOD 10/01/2024 11:11 AM [facility] RDW 16.4(H) 11.0 - 15.0 % LAB HEMETOLOGY METHOD 10/01/2024 11:11 AM [facility] Platelets 416(H) 130 - 400 K/mcL LAB HEMETOLOGY METHOD 10/01/2024 11:11 AM [facility] MPV 11.3(H) 7.0 - 11.0 FL LAB HEMETOLOGY METHOD 10/01/2024 11:11 AM [facility] NRBC 0.0 <1.0 % LAB HEMETOLOGY METHOD 10/01/2024 11:11 AM [facility] NRBC Absolute 0.00 <0.10 K/mcL LAB HEMETOLOGY METHOD 10/01/2024 11:11 AM [facility] Blood Venous blood specimen / Unknown Venipuncture / Unknown 10/01/2024 8:01 AM EDT 10/01/2024 10:24 AM EDT us Prince Le MD LAB BLOOD ORDERABLES Final Resul t [facility] [address] [place] [address], documented in this encounter Visit Diagnoses Diagnosis Type 2 diabetes mellitus without complications (CMS/HCC V24, CMS/HCC V28) documented in this encounter Care Teams Technical Photographer Relationship Specialty Start Date End Date Tram Álvarez MD 2 [facility] , [address] Physician Associ D/B/A: [facility] [place] PCP - General Internal Medicine 03/30/18 documented as of this encounter
--- OUTSIDE RECORDS SUMMARY | 2024-10-22 12:20 | XMS_ITS | Clinical Summary ---
Author Organization [facility] Address [address] [place] [address] Care Team Providers Care Corn Miller Name Role Phone Tram Royal MD Primary [...] age to complete this topic Care Teams Corn Miller Relationship Specialty Start Date End Date Tram Royal MD 2 [facility] , [address] [facility] Physician [facility] D[facility]B/A: [facility] [place] [address] PCP - General Internal Medicine 03/30/18
== END 2024-10-22 12:30 | disposition home or self-care (01) ==
LOC: HO.HNS 11:14
PROVIDERS: PCP Internal Medicine; Visit Provider Physician Assistant
DX: G95.9 Disease of spinal cord, unspecified (principal)
CPT/HCPCS: 99024

== ENCOUNTER 2024-11-26 14:55 | Outpatient (AMB) | payer OTHER, SELFPAY ==
--- OUTSIDE RECORDS SUMMARY | 2024-11-26 14:57 | XMS_ITS | Encounter Summary ---
Author Organization [facility] Address [address] [place] [address] Care Team Providers Care Quality Management Nurse Name Role Phone Tram Álvarez MD Primary Care Provider [phone] Encounter Details Date Type Department Care Team (Late st Contact Info) Description 08/05/2024 Lab Requisition [facility] - Main Lab 299 [facility] [place] [address] Prince Le MD 38 [facility] [address] [place], [address] Type 2 diabetes mellitus without complications [...] [facility] [address] [place] [address], * Comprehensive metabolic panel (08/06/2024 6:49 AM [...] [facility] [address] [place] [address], * (ABNORMAL) Complete blood count (08/06/2024 6:49 AM EST) WBC 8.2 4.8 - 10.8 K/mcL LAB HEMETOLOGY METHOD 08/06/2024 9:12 AM EST [facility] LAB RBC 4.50 4.50 - [...] LAB BLOOD ORDERABLES Final Resul t [facility] [address] [place] [address], [place] [phone] documented in this encounter Visit Diagnoses Diagnosis Type 2 diabetes mellitus without complications (CMS/HCC V24, CMS/HCC V28) documented in this encounter Care Teams Quality Management Nurse Relationship Specialty Start Date End Date Tram Álvarez MD 2 [facility] , [address] [facility] Physician Associ D/B/A: [facility] [place] PCP - General Internal Medicine 03/30/18 documented as of this encounter
--- NOTE | 2024-11-26 15:07 | A.SPINEOV_ITS ---
Intake Visit Reasons: F/U LE weakness Intake Note: Mr. Cabrera is here today to F/u on LE Weakness. Lockstitch Collar Setter Required: No Allergies Penicillins [PENICILLINS] Allergy (Severe, Verified 10/22/24 11:54) RASH jay pepper Allergy (Intermediate, Verified 10/22/24 11:54) Rash pepper (genus Capsicum) Adverse Reaction (Intermediate, Verified 10/22/24 11:54) rashes Assessment & Plan Assessment & Plan (1) Cervical myelopathy: Code(s): G95.9 - Disease of spinal cord, unspecified Category: Medical (2) Paraparesis: Code(s): G82.20 - Paraplegia, unspecified Category: Medical Plan Mr Cabrera is 3 months out from his C4-5, C5-6 anterior cervical fusion for spinal cord compression and myelopathy. At the time of his initial visit he was in a wheelchair had severe weakness of both of his arms in his legs. The patient underwent his surgery and has basically been in rehab and now in a [facility] and [facility] since that time. He has been getting what he describes as marginal amounts of rehab but he has noticed improvements in the strength of his right arm but still can not walk. In fact he has not been vertical and out of a chair 4 months. He does not even believe he has been any attempt to be standing upright since last May. His legs continued to be numb. There is no pain shooting down them. On my exam he has diffuse weakness of the right arm which I would rate as 2 to 3/5, 4-5 on the left. Bilateral lower extremities are about 1 to 2/5. He has absent reflexes but again he is a diabetic. Upgoing toes. This was seen on his previous examination during his initial visit. Although it is normal to see very minimal improvement when a patient has as much spinal cord compression as this patient had, it seems odd to me that the hands are subjectively stronger to the patient but he still has not been able to really move his legs at all. I went back and looked at his imaging in our system to see if there was anything I could correlate to thoracic spinal cord compression and there is a chest CT done here at [facility] showing severely calcified disc spaces and some flavum ligament in the midthoracic regions which could be causing some spinal cord compression so I am going to order a thoracic MRI to evaluate that. 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 Also I will follow-up on a postoperative cervical MRI just to see if there is any residual compression in that area as well. We can see him back once it is completed. Renan Isabel MD, PhD [facility] Orders: Orders MR cervical spine wo con Today G95.9 - Disease of spinal cord, unspecified MR thoracic spine wo con Today G82.20 - Paraplegia, unspecified Coding Level of Care Code Global (02900) Diagnoses Cervical myelopathy G95.9 Paraparesis G82.20
== END 2024-11-26 15:45 | disposition home or self-care (01) ==
LOC: HO.HNS 14:56
PROVIDERS: PCP Internal Medicine; Visit Provider Physician Assistant
DX: G95.9 Disease of spinal cord, unspecified (principal); G82.20 Paraplegia, unspecified
CPT/HCPCS: 99214

== ENCOUNTER → 2024-11-26 14:55 | Outpatient (BNVA) | payer OTHER, SELFPAY | PROVIDERS: PCP Internal Medicine; Visit Provider Physician Assistant | DX: G82.20 Paraplegia, unspecified (principal); Z09 Encounter for follow-up examination after completed treatment for conditions other than malignant neoplasm; Z98.1 Arthrodesis status; Z87.39 Personal history of other diseases of the musculoskeletal system and connective tissue | CPT/HCPCS: 99212 ==

== ENCOUNTER 2024-12-16 10:44 | Outpatient (REF) | payer OTHER, SELFPAY ==
--- NOTE | ~2024-12-16 | MR_ITS ---
EXAMINATION: MR CERVICAL SPINE WITHOUT CONTRAST CLINICAL INFORMATION: Disease of spinal cord, unspecified. COMPARISON: July 30, 2024. Correlated to CT dated August 21, 2024. TECHNIQUE: MRI of the cervical spine was obtained using routine sequences without contrast. FINDINGS: Paramagnetic field distortion secondary to intervertebral disc spacer placement/arthrodesis C4-5 and C5-6 level. Craniocervical junction is intact. No bone marrow STIR signal abnormality. Multilevel marginal osteophyte formation and disc desiccation C2-3 C3-4 levels as well as the upper thoracic spine. Incomplete ankylosis/arthrodesis at C6-7. Grade 1 retrolisthesis C3-4. Grade 1 anterolisthesis C7-T1. Reverse curvature apex at C3-4. Flattening/volume loss of the spinal cord without seated the bilateral hemicord hyperintense T2 STIR signal at C4-5 and likely to a lesser extent C6-7 levels. C2-3: No disc herniation. No cord compression. Disc osteophyte complex formation. Bilateral neuroforamina narrowing. C3-4: Central disc osteophyte complex formation. Grade 1 retrolisthesis. Abutting the ventral spinal cord. No cord signal abnormality. There is CSF in the dorsal aspect of the thecal sac. Bilateral neuroforamina narrowing, left greater than the right on a multifactorial basis. C4-5: Postsurgical changes. No central spinal canal stenosis. Flattening spinal cord and bilateral hemicord round hyperintense T2 signal. Bilateral neuroforamina narrowing on a multifactorial basis. C5-6: Postsurgical changes. There is CSF in the ventral and dorsal aspect of the thecal sac. There is flattening of the spinal cord. There is no cord compression. There is subtle right basilar hyperintense T2 cord signal. Bilateral neuroforamina narrowing on a degenerative basis. C6-7: Arthrodesis. Bilateral, right greater than the left hemicord signal abnormality. Fat-containing of the spinal cord. There is CSF in the ventral and dorsal aspect of the thecal sac. Bilateral neuroforamina narrowing on a degenerative basis. C7-T1: Hypertrophy of ligamentum flavum resulting in dorsal deformity of the thecal sac. Grade 1 anterolisthesis. No gross cord signal abnormality. No cord compression. No gross neuroforamina stenosis. No prevertebral compartment hematoma, mass or fluid collection. Flow-void signal within the main vessels is normal. Codominant vertebral arteries. 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 Overall resolved cord compression. Electronically signed by: Seth Briggs MD 12/16/2024 12:46 PM EDT
--- NOTE | ~2024-12-16 | MR_ITS ---
EXAMINATION: MR THORACIC SPINE WITHOUT CONTRAST CLINICAL INFORMATION: Paraplegia. COMPARISON: None available. TECHNIQUE: MRI of the thoracic spine was obtained using routine sequences without contrast. FINDINGS: Limited by patient's motion artifact. No bone marrow STIR signal abnormality. Multilevel osteophyte formation and disc desiccation. Incomplete ankylosis from T7 to T9. Grade 1 anterolisthesis T1 to. Grade 1 retrolisthesis T10-11. Buckling deformity of the dorsal aspect of the thecal sac secondary to ligamentum flavum hypertrophy at the C6-7, T7-8, T8-9, T9-10 and to a lesser extent T5-6 and T10-11. T1-2: No cord compression. No cord signal abnormality. T2-3: No cord compression. No cord signal abnormality. T3-4: No cord compression. No cord signal abnormality. T4-5: No cord compression. No cord signal abnormality. T5-6: Left subarticular disc protrusion. No cord compression. No cord signal abnormality. Hypertrophy of the ligamentum flavum. T6-7: Left-sided facet joint hypertrophy and ligamentum flavum abutting the dorsal aspect of the cord. Subtle cord signal abnormality. T7-8: Disc osteophyte complex formation. No cord compression. No gross cord signal abnormality. T8-9: Central disc protrusion resulting in ventral indentation to the spinal cord. There is a questionable cord signal abnormality. There is hypertrophy of ligamentum flavum and facet joints reducing the AP diameter of the thecal sac. T9-10: Broad-based disc bulging. Facet joint and ligamentum flavum hypertrophy. There is CSF effacement of the thecal sac.. There is cord signal abnormality extending in to the level of the superior endplate of T10. T10-11: Broad-based disc bulging. Facet joint ligamentum flavum. Reduced AP diameter of the thecal sac. Questionable cord signal abnormality in the right hemicord. T11-12: Facet joint and ligamentum flavum hypertrophy resulting in dorsal deformity of the thecal sac. Broad-based disc bulging. No gross cord signal abnormality. No cord compression. T12-L1: Broad-based disc bulging. Facet joint and ligamentum flavum hypertrophy. No gross cord signal abnormality. No prevertebral compartment hematoma or masses or fluid collection. Soft tissue fullness, left adrenal gland. MR/MR thoracic spine wo con IMPRESSION: Multilevel spondylosis extending from T5-6-2 T11-12 resulting in cord compression and myelopathy at T9-10. Electronically signed by: Seth Briggs MD 12/16/2024 01:38 PM EDT
--- OUTSIDE RECORDS SUMMARY | 2024-12-16 12:36 | XMS_ITS | Encounter Summary ---
Author Organization [facility] Address [address] [place] [address] Care Team Providers Care Balance Wheel Motion Inspector Name Role Phone Tram Álvarez MD Primary Care Provider [phone] Encounter Details Date Type Department Care Team (Late st Contact Info) Description 08/05/2024 Lab Requisition [facility] - Main Lab [address] [place] [address] Prince Le MD 38 [facility] [address] [place], [address] Type 2 diabetes mellitus without complications [...] Resul t [facility] LAB [address] [place] [address], * Comprehensive metabolic panel (08/06/2024 6:49 AM [...] Resul t [facility] LAB [address] [place] [address], * (ABNORMAL) Complete blood count (08/06/2024 6:49 [...] LAB BLOOD ORDERABLES Final Resul t [facility] LAB [address] [place] [address], [place] [phone] documented in this encounter Visit Diagnoses Diagnosis Type 2 diabetes mellitus without complications (CMS/HCC V24, CMS/HCC V28) documented in this encounter Care Teams Balance Wheel Motion Inspector Relationship Specialty Start Date End Date Tram Álvarez MD 2 [facility] , [address] [facility] Physician Associ D/B/A: [facility] [place] PCP - General Internal Medicine 03/30/18 documented as of this encounter
== END 2024-12-16 10:45 | disposition home or self-care (01) ==
LOC: HO.MRI 10:44
PROVIDERS: PCP Internal Medicine; Visit Provider Physician Assistant
DX: G95.9 Disease of spinal cord, unspecified (principal); G82.20 Paraplegia, unspecified
CPT/HCPCS: 72141; 72146

== ENCOUNTER → 2024-12-16 10:47 | Outpatient (BNV) | payer OTHER, SELFPAY | PROVIDERS: PCP Internal Medicine; Visit Provider Radiology Diagnostic Radiology | DX: M47.12 Other spondylosis with myelopathy, cervical region (principal); M47.14 Other spondylosis with myelopathy, thoracic region | CPT/HCPCS: 72141; 72146 ==

== ENCOUNTER 2024-12-29 13:38 | Outpatient (AMB) | payer OTHER, SELFPAY ==
--- NOTE | 2024-12-29 14:48 | HO.SPINEOV ---
Intake Visit Reasons: MRI follow up Intake Note: Mr. Cabrera is here today to F/u on the results to his MRI. Zoo Caretaker Required: No Allergies Penicillins (PENICILLINS) Allergy (Severe, Verified 10/22/24 11:54) RASH jay pepper Allergy (Intermediate, Verified 10/22/24 11:54) Rash pepper (genus Capsicum) Adverse Reaction (Intermediate, Verified 10/22/24 11:54) rashes Assessment & Plan Assessment & Plan (1) Thoracic myelopathy: Code(s): M47.14 - Other spondylosis with myelopathy, thoracic region Category: Medical Plan Carlos is a pleasant 69 year old male who comes in today to discuss his MRI results. After evaluation by JIM Esquivel on 11/26/24 he was ordered a thoracic MRI to rule our spinal cord compression in thoracic spine. To recap he has been reporting fairly consistent improvement in his upper extremity symptoms since his surgery, however he continues to feel his legs are extremely weak, and has been essentially stuck in his wheelchair since before his 1st evaluation in our clinic. He does not feel that his neck surgery was helpful for his lower extremity symptoms. We reviewed his MRI imaging in clinic today, which shows severe spinal cord compression at T9-10. I reviewed the patient's case with the attending neurosurgeon Dr. Isabel who is willing to offer the patient a T9-10 thoracic decompression. The patient was extensively explained what this procedure entails during his visit in office today utilizing the spine models at office. He also called in put a family member on speaker phone so they could ask questions and also hear what procedure he will be having. The patient was given risk and benefits of surgery including but not limited to infection, hematoma, nerve injury, durotomy, weakness, bowel injury, thoracic cavity injury, persistent pain. We also discussed the option to continue with conservative treatment and patient wishes to proceed with surgery. They are aware they should stop NSAIDs 7 days prior to surgery. All questions were answered to the best of our ability. If there is anything about this patient's medical history that we have overlooked or concerns you have about us proceeding with surgery we would appreciate any input you can offer. Theron Isabel MD,PhD [facility] Coding Level of Care Code Global (22138) Diagnoses Thoracic myelopathy M47.14
--- OUTSIDE RECORDS SUMMARY | 2024-12-29 16:05 | XMS_ITS | Encounter Summary ---
Author Organization [facility] Address [address] [place] [address] Care Team Providers Care Snack Stewardess Name Role Phone Tram Álvarez MD Primary Care Provider [phone] Encounter Details Date Type Department Care Team (Late st Contact Info) Description 08/05/2024 Lab Requisition [facility] - Main Lab [address] [facility] [place] [address] Prince Le MD [address], [address] Type 2 diabetes mellitus without complications [...] mg/dL LAB CHEMISTRY METHOD 08/06/2024 9:31 AM [facility] Blood Venous blood specimen / Unknown Venipuncture / Unknown 08/06/2024 6:49 AM EST 08/06/2024 8:31 AM EST us Prince Le MD LAB BLOOD ORDERABLES Final Resul t [facility] [address] [place] [address], * Comprehensive metabolic panel (08/06/2024 6:49 AM EST) Sodium 140 133 - 145 mmol/L LAB CHEMISTRY METHOD 08/06/2024 9:31 AM [facility] Potassium 5.0 3.5 - 5.5 mmol/L LAB CHEMISTRY METHOD 08/06/2024 9:31 AM [facility] Chloride 106 96 - 110 mmol/L LAB CHEMISTRY METHOD 08/06/2024 9:31 AM [facility] CO2 30 21 - 32 mmol/L LAB CHEMISTRY METHOD 08/06/2024 9:31 AM [facility] Anion Gap 4 3 - 11 LAB CHEMISTRY METHOD 08/06/2024 9:31 AM [facility] Glucose 99 70 - 100 mg/dL LAB CHEMISTRY METHOD 08/06/2024 9:31 AM [facility] BUN 25 5 - 25 mg/dL LAB CHEMISTRY METHOD 08/06/2024 9:31 AM [facility] Creatinine 1.10 0.70 - 1.30 mg/dL LAB CHEMISTRY METHOD 08/06/2024 9:31 AM [facility] eGFR 73 >=60 mL/min/1. 73m2 LAB CHEMISTRY METHOD 08/06/2024 9:31 AM [facility] Comment:Calculation based on the Chronic Kidney Disease Epidemiology Collaboration (CKD-EPI) equation refit without adjustment for race. BUN/Creatinine Ratio 22.7 LAB CHEMISTRY METHOD 08/06/2024 9:31 AM [facility] Calcium 9.5 8.5 - 10.5 mg/dL LAB CHEMISTRY METHOD 08/06/2024 9:31 AM [facility] AST (SGOT) 33 10 - 42 unit/L LAB CHEMISTRY METHOD 08/06/2024 9:31 AM [facility] ALT (SGPT) 26 10 - 60 unit/L LAB CHEMISTRY METHOD 08/06/2024 9:31 AM [facility] Alkaline Phosphatase 51 42 - 121 unit/L LAB CHEMISTRY METHOD 08/06/2024 9:31 AM [facility] Total Protein 6.6 6.0 - 8.0 g/dL LAB CHEMISTRY METHOD 08/06/2024 9:31 AM [facility] Albumin 3.4 3.2 - 5.0 g/dL LAB CHEMISTRY METHOD 08/06/2024 9:31 AM [facility] Total Bilirubin 0.4 0.0 - 1.4 mg/dL LAB CHEMISTRY METHOD 08/06/2024 9:31 AM [facility] Blood Venous blood specimen / Unknown Venipuncture / Unknown 08/06/2024 6:49 AM EST 08/06/2024 8:31 AM EST us Prince Le MD LAB BLOOD ORDERABLES Final Resul t [facility] [address] [place] [address], * (ABNORMAL) Complete blood count (08/06/2024 6:49 AM EST) WBC 8.2 4.8 - 10.8 K/mcL LAB HEMETOLOGY METHOD 08/06/2024 9:[address] [facility] RBC 4.50 4.50 - 5.50 M/mcL LAB HEMETOLOGY METHOD 08/06/2024 9:12 AM [facility] Hemoglobin 12.2(L) 13.5 - 17.5 g/dL LAB HEMETOLOGY METHOD 08/06/2024 9:12 AM [facility] Hematocrit 37.4(L) 42.0 - 54.0 % LAB HEMETOLOGY METHOD 08/06/2024 9:12 AM [facility] MCV 84.0 79.0 - 98.0 FL LAB HEMETOLOGY METHOD 08/06/2024 9:12 AM [facility] MCH 27.4 27.0 - 32.0 pcg LAB HEMETOLOGY METHOD 08/06/2024 9:12 AM [facility] MCHC 32.6 32.0 - 37.0 g/dL LAB HEMETOLOGY METHOD 08/06/2024 9:12 AM [facility] RDW 20.3(H) 11.0 - 15.0 % LAB HEMETOLOGY METHOD 08/06/2024 9:12 AM [facility] Platelets 351 130 - 400 K/mcL LAB HEMETOLOGY METHOD 08/06/2024 9:12 AM [facility] MPV 12.2(H) 7.0 - 11.0 FL LAB HEMETOLOGY METHOD 08/06/2024 9:12 AM [facility] NRBC 0.0 <1.0 % LAB HEMETOLOGY METHOD 08/06/2024 9:12 AM [facility] NRBC Absolute 0.00 <0.10 K/mcL LAB HEMETOLOGY METHOD 08/06/2024 9:12 AM [facility] Blood Venous blood specimen / Unknown Venipuncture / Unknown 08/06/2024 6:49 AM EST 08/06/2024 8:31 AM EST us Prince Le MD LAB BLOOD ORDERABLES Final Resul t [facility] [address] [place] [address], documented in this encounter Visit Diagnoses Diagnosis Type 2 diabetes mellitus without complications (CMS/HCC V24, CMS/HCC V28) documented in this encounter Care Teams Snack Stewardess Relationship Specialty Start Date End Date rTam Álvarez MD [address] [facility] , [address] [facility] D/B/A: [facility] [place] PCP - General Internal Medicine 03/30/18 documented as of this encounter
== END 2024-12-29 16:38 | disposition home or self-care (01) ==
LOC: HO.HNS 13:39
PROVIDERS: PCP Internal Medicine; Visit Provider Neurological Surgery
DX: M47.14 Other spondylosis with myelopathy, thoracic region (principal)
CPT/HCPCS: 99214

== ENCOUNTER → 2024-12-29 13:38 | Outpatient (BNVA) | payer OTHER, SELFPAY | PROVIDERS: PCP Internal Medicine; Visit Provider Neurological Surgery | DX: Z71.2 Person consulting for explanation of examination or test findings (principal); M47.14 Other spondylosis with myelopathy, thoracic region | CPT/HCPCS: 99212 ==

== ENCOUNTER 2025-01-27 | Outpatient (REF) | payer OTHER, SELFPAY ==
--- OUTSIDE RECORDS SUMMARY | 2024-12-31 15:05 | XMS_ITS | Encounter Summary ---
Author Organization [facility] Address [address] [place] [address] Care Team Providers Care Forest Fire Control Officer Name Role Phone Tram Álvarez MD Primary Care Provider [phone] Encounter Details Date Type Department Care Team (Late st Contact Info) Description 08/05/2024 Lab Requisition [facility] - Main Lab [address] [place] [address] Prince Le MD [address] [facility] [address] [place], [address] Type 2 diabetes mellitus without complications [...] mg/dL LAB CHEMISTRY METHOD 08/06/2024 9:31 AM [facility] Blood Venous blood specimen / Unknown Venipuncture / Unknown 08/06/2024 6:49 AM EST 08/06/2024 8:31 AM EST us Prince Le MD LAB BLOOD ORDERABLES Final Resul t [facility] [address] [place] [address], * Comprehensive metabolic panel (08/06/2024 6:49 AM EST) Sodium 140 133 - 145 mmol/L LAB CHEMISTRY METHOD 08/06/2024 9:31 AM [facility] Potassium 5.0 3.5 - 5.5 mmol/L LAB CHEMISTRY METHOD 08/06/2024 9:31 AM [facility] Chloride 106 96 - 110 mmol/L LAB CHEMISTRY METHOD 08/06/2024 9:31 AM [facility] CO2 30 21 - 32 mmol/L LAB CHEMISTRY METHOD 08/06/2024 9:31 AM [facility] Anion Gap 4 3 - 11 LAB CHEMISTRY METHOD 08/06/2024 9:31 AM [facility] Glucose 99 70 - 100 mg/dL LAB CHEMISTRY METHOD 08/06/2024 9:31 AM [facility] BUN 25 5 - 25 mg/dL LAB CHEMISTRY METHOD 08/06/2024 9:31 AM [facility] Creatinine 1.10 0.70 - 1.30 mg/dL LAB CHEMISTRY METHOD 08/06/2024 9:31 AM [facility] eGFR 73 >=60 mL/min/1. 73m2 LAB CHEMISTRY METHOD 08/06/2024 9:31 AM [facility] Comment:Calculation based on the Chronic Kidney Disease Epidemiology Collaboration (CKD-EPI) equation refit without adjustment for race. BUN/Creatinine Ratio 22.7 LAB CHEMISTRY METHOD 08/06/2024 9:31 AM [facility] Calcium 9.5 8.5 - 10.5 mg/dL LAB CHEMISTRY METHOD 08/06/2024 9:31 AM [facility] AST (SGOT) 33 10 - 42 unit/L LAB CHEMISTRY METHOD 08/06/2024 9:31 AM [facility] ALT (SGPT) 26 10 - 60 unit/L LAB CHEMISTRY METHOD 08/06/2024 9:31 AM [facility] Alkaline Phosphatase 51 42 - 121 unit/L LAB CHEMISTRY METHOD 08/06/2024 9:31 AM [facility] Total Protein 6.6 6.0 - 8.0 g/dL LAB CHEMISTRY METHOD 08/06/2024 9:31 AM [facility] Albumin 3.4 3.2 - 5.0 g/dL LAB CHEMISTRY METHOD 08/06/2024 9:31 AM [facility] Total Bilirubin 0.4 0.0 - 1.4 mg/dL LAB CHEMISTRY METHOD 08/06/2024 9:31 AM [facility] Blood Venous blood specimen / Unknown Venipuncture / Unknown 08/06/2024 6:49 AM EST 08/06/2024 8:31 AM EST us Prince Le MD LAB BLOOD ORDERABLES Final Resul t [facility] [address] [place] [address], * (ABNORMAL) Complete blood count (08/06/2024 6:49 AM EST) WBC 8.2 4.8 - 10.8 K/mcL LAB HEMETOLOGY METHOD 08/06/2024 9:12 AM EST [facility] RBC 4.50 4.50 - 5.50 M/mcL LAB HEMETOLOGY METHOD 08/06/2024 9:12 AM [facility] Hemoglobin 12.2(L) 13.5 - 17.5 g/dL LAB HEMETOLOGY METHOD 08/06/2024 9:12 AM [facility] Hematocrit 37.4(L) 42.0 - 54.0 % LAB HEMETOLOGY METHOD 08/06/2024 9:12 AM [facility] MCV 84.0 79.0 - 98.0 FL LAB HEMETOLOGY METHOD 08/06/2024 9:12 AM [facility] MCH 27.4 27.0 - 32.0 pcg LAB HEMETOLOGY METHOD 08/06/2024 9:12 AM [facility] MCHC 32.6 32.0 - 37.0 g/dL LAB HEMETOLOGY METHOD 08/06/2024 9:12 AM [facility] RDW 20.3(H) 11.0 - 15.0 % LAB HEMETOLOGY METHOD 08/06/2024 9:12 AM [facility] Platelets 351 130 - 400 K/mcL LAB HEMETOLOGY METHOD 08/06/2024 9:12 AM [facility] MPV 12.2(H) 7.0 - 11.0 FL LAB HEMETOLOGY METHOD 08/06/2024 9:12 AM [facility] NRBC 0.0 <1.0 % LAB HEMETOLOGY METHOD 08/06/2024 9:12 AM [facility] NRBC Absolute 0.00 <0.10 K/mcL LAB HEMETOLOGY METHOD 08/06/2024 9:12 AM [facility] Blood Venous blood specimen / Unknown Venipuncture / Unknown 08/06/2024 6:49 AM EST 08/06/2024 8:31 AM EST us Prince Le MD LAB BLOOD ORDERABLES Final Resul t [facility] ([facility]) [facility] [address] [place] [address], documented in this encounter Visit Diagnoses Diagnosis Type 2 diabetes mellitus without complications (CMS/HCC V24, CMS/HCC V28) documented in this encounter Care Teams Forest Fire Control Officer Relationship Specialty Start Date End Date Tram Álvarez MD [address] [facility] , [address] [facility] D/B/A: [facility] [place] PCP - General Internal Medicine 03/30/18 documented as of this encounter
[2025-01-20 12:40] VITALS: BMI 28.9
[2025-01-20 13:19] LABS: Hematocrit 34.4 % (42.0-52.0); Hemoglobin 11.4 g/dl (14.0-18.0); Mean Corpuscular HGB Conc 33.1 g/dl (31.0-36.0); Mean Corpuscular Hemoglobin 29.2 pg (27.0-33.0); Mean Corpuscular Volume 88.2 fL (80.0-98.0); NRBC Abs Auto 0.000 X10*3/uL (0.0-0.012); NRBC Pct Auto 0.0 /100WBC (0.0-0.2); Platelet Count 261 X10*3/uL (160-400); Red Blood Count 3.90 X10*6/uL (4.60-5.80); White Blood Count 8.2 X10*3/uL (4.8-10.8)
[2025-01-20 13:35] LABS: Anion Gap 9 (12-20); Blood Urea Nitrogen 22 mg/dL (9-16); Calcium 8.3 mg/dL (8.4-10.2); Carbon Dioxide 24 mmol/L (22-29); Chloride 113 mmol/L (96-108); Estimated Glomerular Filt Rate > 60; Potassium 3.8 mmol/L (3.3-5.1); Sodium 142 mmol/L (135-145)
--- OUTSIDE RECORDS SUMMARY | 2025-03-09 13:12 | XMS_ITS | Encounter Summary ---
Author Organization [facility] Address [address] [place] [address] Care Team Providers Care Real Estate Appraiser Name Role Phone Tram Álvarez MD Primary Care Provider [phone] Encounter Details Date Type Department Care Team (Late st Contact Info) Description 08/05/2024 Lab Requisition [facility] - Main Lab [address] [place] [address] Prince Le MD 38 [facility] [address] [place], [address] Type 2 diabetes mellitus without complications [...] mg/dL LAB CHEMISTRY METHOD 08/06/2024 9:31 AM [facility] Blood Venous blood specimen / Unknown Venipuncture / Unknown 08/06/2024 6:49 AM EST 08/06/2024 8:31 AM EST us Prince Le MD LAB BLOOD ORDERABLES Final Resul t [facility] [address] [place] [address], * Comprehensive metabolic panel (08/06/2024 6:49 AM EST) Sodium 140 133 - 145 mmol/L LAB CHEMISTRY METHOD 08/06/2024 9:31 AM [facility] Potassium 5.0 3.5 - 5.5 mmol/L LAB CHEMISTRY METHOD 08/06/2024 9:31 AM [facility] Chloride 106 96 - 110 mmol/L LAB CHEMISTRY METHOD 08/06/2024 9:31 AM [facility] CO2 30 21 - 32 mmol/L LAB CHEMISTRY METHOD 08/06/2024 9:31 AM [facility] Anion Gap 4 3 - 11 LAB CHEMISTRY METHOD 08/06/2024 9:31 AM [facility] Glucose 99 70 - 100 mg/dL LAB CHEMISTRY METHOD 08/06/2024 9:31 AM [facility] BUN 25 5 - 25 mg/dL LAB CHEMISTRY METHOD 08/06/2024 9:31 AM [facility] Creatinine 1.10 0.70 - 1.30 mg/dL LAB CHEMISTRY METHOD 08/06/2024 9:31 AM [facility] eGFR 73 >=60 mL/min/1. 73m2 LAB CHEMISTRY METHOD 08/06/2024 9:31 AM [facility] Comment:Calculation based on the Chronic Kidney Disease Epidemiology Collaboration (CKD-EPI) equation refit without adjustment for race. BUN/Creatinine Ratio 22.7 LAB CHEMISTRY METHOD 08/06/2024 9:31 AM [facility] Calcium 9.5 8.5 - 10.5 mg/dL LAB CHEMISTRY METHOD 08/06/2024 9:31 AM [facility] AST (SGOT) 33 10 - 42 unit/L LAB CHEMISTRY METHOD 08/06/2024 9:31 AM [facility] ALT (SGPT) 26 10 - 60 unit/L LAB CHEMISTRY METHOD 08/06/2024 9:31 AM [facility] Alkaline Phosphatase 51 42 - 121 unit/L LAB CHEMISTRY METHOD 08/06/2024 9:31 AM [facility] Total Protein 6.6 6.0 - 8.0 g/dL LAB CHEMISTRY METHOD 08/06/2024 9:31 AM [facility] Albumin 3.4 3.2 - 5.0 g/dL LAB CHEMISTRY METHOD 08/06/2024 9:31 AM [facility] Total Bilirubin 0.4 0.0 - 1.4 mg/dL LAB CHEMISTRY METHOD 08/06/2024 9:31 AM [facility] Blood Venous blood specimen / Unknown Venipuncture / Unknown 08/06/2024 6:49 AM EST 08/06/2024 8:31 AM EST us Prince Le MD LAB BLOOD ORDERABLES Final Resul t [facility] [address] [place] [address], * (ABNORMAL) Complete blood count (08/06/2024 6:49 AM EST) WBC 8.2 4.8 - 10.8 K/mcL LAB HEMETOLOGY METHOD 08/06/2024 9:12 AM EST [facility] RBC 4.50 4.50 - 5.50 M/mcL LAB HEMETOLOGY METHOD 08/06/2024 9:12 AM [facility] Hemoglobin 12.2(L) 13.5 - 17.5 g/dL LAB HEMETOLOGY METHOD 08/06/2024 9:12 AM [facility] Hematocrit 37.4(L) 42.0 - 54.0 % LAB HEMETOLOGY METHOD 08/06/2024 9:12 AM [facility] MCV 84.0 79.0 - 98.0 FL LAB HEMETOLOGY METHOD 08/06/2024 9:12 AM [facility] MCH 27.4 27.0 - 32.0 pcg LAB HEMETOLOGY METHOD 08/06/2024 9:12 AM [facility] MCHC 32.6 32.0 - 37.0 g/dL LAB HEMETOLOGY METHOD 08/06/2024 9:12 AM [facility] RDW 20.3(H) 11.0 - 15.0 % LAB HEMETOLOGY METHOD 08/06/2024 9:12 AM [facility] Platelets 351 130 - 400 K/mcL LAB HEMETOLOGY METHOD 08/06/2024 9:12 AM [facility] MPV 12.2(H) 7.0 - 11.0 FL LAB HEMETOLOGY METHOD 08/06/2024 9:12 AM [facility] NRBC 0.0 <1.0 % LAB HEMETOLOGY METHOD 08/06/2024 9:12 AM [facility] NRBC Absolute 0.00 <0.10 K/mcL LAB HEMETOLOGY METHOD 08/06/2024 9:12 AM [facility] Blood Venous blood specimen / Unknown Venipuncture / Unknown 08/06/2024 6:49 AM EST 08/06/2024 8:31 AM EST us Prince Le MD LAB BLOOD ORDERABLES Final Resul t [facility] ([facility]) [facility] [address] [place] [address], documented in this encounter Visit Diagnoses Diagnosis Type 2 diabetes mellitus without complications (CMS/HCC V24, CMS/HCC V28) documented in this encounter Care Teams Real Estate Appraiser Relationship Specialty Start Date End Date Tram Álvarez MD 2 [facility] , [address] [facility] Physician Associ D/B/A: [facility] [place] PCP - General Internal Medicine 03/30/18 documented as of this encounter
--- OUTSIDE RECORDS SUMMARY | 2025-03-09 13:12 | XMS_ITS | Encounter Summary ---
Author Organization [facility] Address [address] [place] [address] Care Team Providers Care Exterminator Name Role Phone Tram Álvarez MD Primary Care Provider [phone] Encounter Details Date Type Department Care Team (Late st Contact Info) Description 10/07/2024 Lab Requisition [facility] - Main Lab [address] [facility] [place] [address] Prince Le MD 38 [facility] [address] [place], [address] Type 2 diabetes mellitus without complications [...] V28) documented in this encounter Care Teams Exterminator Relationship Specialty Start Date End Date Tram Álvarez MD [address] [place] [address] , [address] [facility] Physician Associ D/B/A: [facility] [place], [place] PCP - General Internal Medicine 03/30/18 documented as of this encounter
--- OUTSIDE RECORDS SUMMARY | 2025-03-09 13:12 | XMS_ITS | Encounter Summary ---
Author Organization [facility] Address [address] [place] [address] Care Team Providers Care Executive Producer Name Role Phone Tram Álvarez MD Primary Care Provider [phone] Encounter Details Date Type Department Care Team (Late st Contact Info) Description 10/18/2024 Lab Requisition [facility] - Main Lab [address] [place] [address] Preeti Lujan MD [address] [phone] Sepsis, unspecified organism (CMS/HCC V24, CMS/HCC V28) [...] LAB CHEMISTRY METHOD 10/18/2024 1:15 PM EDT [facility] ([facility]) [facility] Potassium 4.0 3.5 - 5.5 mmol/L LAB CHEMISTRY METHOD 10/18/2024 1:15 PM [facility] Chloride 113(H) 96 - 110 mmol/L LAB CHEMISTRY METHOD 10/18/2024 1:15 PM [facility] CO2 22 21 - 32 mmol/L LAB CHEMISTRY METHOD 10/18/2024 1:15 PM [facility] Anion Gap 7 3 - 11 LAB CHEMISTRY METHOD 10/18/2024 1:15 PM [facility] Glucose 114(H) 70 - 100 mg/dL LAB CHEMISTRY METHOD 10/18/2024 1:15 PM [facility] BUN 12 5 - 25 mg/dL LAB CHEMISTRY METHOD 10/18/2024 1:15 PM [facility] Creatinine 0.58(L) 0.70 - 1.30 mg/dL LAB CHEMISTRY METHOD 10/18/2024 1:15 PM [facility] eGFR 106 >=60 mL/min/1. 73m2 LAB CHEMISTRY METHOD 10/18/2024 1:15 PM [facility] Comment:Calculation based on the Chronic Kidney Disease Epidemiology Collaboration (CKD-EPI) equation refit without adjustment for race. BUN/Creatinine Ratio 20.7 LAB CHEMISTRY METHOD 10/18/2024 1:15 PM [facility] Calcium 8.7 8.5 - 10.5 mg/dL LAB CHEMISTRY METHOD 10/18/2024 1:15 PM [facility] Blood Venous blood specimen / Unknown Venipuncture / Unknown 10/18/2024 9:03 AM EDT 10/18/2024 11:02 AM EDT us Preeti Lujan MD LAB BLOOD ORDERABLES Fin al Result [facility] [address] [place] [address], [place] [phone] * (ABNORMAL) Complete blood count (10/18/2024 9:03 AM EDT) [facility] WBC 5.9 4.8 - 10.8 K/mcL LAB HEMETOLOGY METHOD 10/18/2024 1:35 PM EDT [facility] RBC 3.40(L) 4.50 - 5.50 M/mcL LAB HEMETOLOGY METHOD 10/18/2024 1:35 PM EDT [facility] Hemoglobin 10.1(L) 13.5 - 17.5 g/dL LAB HEMETOLOGY METHOD 10/18/2024 1:35 PM [facility] Hematocrit 32.3(L) 42.0 - 54.0 % LAB HEMETOLOGY METHOD 10/18/2024 1:35 PM [facility] MCV 96.4 79.0 - 98.0 FL LAB HEMETOLOGY METHOD 10/18[facility]2024 1[facility] MCH 30.1 27.0 - 32.0 pcg LAB HEMETOLOGY METHOD 10/18/2024 1:35 PM [facility] MCHC 31.3(L) 32.0 - 37.0 g/dL LAB HEMETOLOGY METHOD 10/18/2024 1:35 PM [facility] RDW 18.2(H) 11.0 - 15.0 % LAB HEMETOLOGY METHOD 10/18/2024 1:35 PM EDT [facility] Platelets 275 130 - 400 K/mcL LAB HEMETOLOGY METHOD 10/18/2024 1:35 PM [facility] MPV 13.2(H) 7.0 - 11.0 FL LAB HEMETOLOGY METHOD 10/18/2024 1:35 PM [facility] NRBC 0.0 <1.0 % LAB HEMETOLOGY METHOD 10/18/2024 1:35 PM EDT [facility] NRBC Absolute 0.00 <0.10 K/mcL LAB HEMETOLOGY METHOD 10/18/2024 1:35 PM EDT [facility] Blood Venous blood specimen / Unknown Venipuncture / Unknown 10/18/2024 9:03 AM EDT 10/18/2024 11:02 AM EDT us Preeti Lujan MD LAB BLOOD ORDERABLES Fin al Result [facility] [address] [place] [address], documented in this encounter Visit Diagnoses Diagnosis Sepsis, unspecified organism (CMS/HCC V24, CMS/HCC V28) documented in this encounter Care Teams Executive Producer Relationship Specialty Start Date End Date Tram Álvarez MD 2 [facility] , [address] [place] [address] Physician Associ D/B/A: [facility] [place], [place] PCP - General Internal Medicine 03/30/18 documented as of this encounter
--- OUTSIDE RECORDS SUMMARY | 2025-03-09 13:12 | XMS_ITS | Encounter Summary ---
Author Organization [facility] Address [address] [place] [address] Care Team Providers Care Licensed Funeral Director And Embalmer Name Role Phone Tram Álvarez MD Primary Care Provider [phone] Encounter Details Date Type Department Care Team (Late st Contact Info) Description 10/07/[address] [facility] - Main Lab [address] [place] [address] Prince Le MD 38 [facility] [address] [place], [address] Type 2 diabetes mellitus without complications [...] WBC 17.5(H) 4.8 - 10.8 K/[facility] LAB HEMETOLOGY METHOD 10/07/2024 9:32 AM [facility] LAB RBC 3.80(L) 4.50 - 5.50 M/mcL LAB HEMETOLOGY METHOD 10/07/2024 9:32 AM [facility] LAB Hemoglobin 11.2(L) 13.5 - 17.5 g/dL LAB HEMETOLOGY METHOD 10/07/2024 9:32 AM [facility] LAB Hematocrit 35.1(L) 42.0 - 54.0 % LAB HEMETOLOGY METHOD 10/07/2024 9:32 AM [facility] LAB MCV 92.4 79.0 - 98.0 FL LAB HEMETOLOGY METHOD 10/07/2024 9:32 AM [facility] LAB MCH 29.5 27.0 - 32.0 pcg LAB HEMETOLOGY METHOD 10/07/2024 9:32 AM [facility] LAB MCHC 31.9(L) 32.0 - 37.0 g/dL LAB HEMETOLOGY METHOD 10/07/2024 9:32 AM [facility] LAB RDW 16.6(H) 11.0 - 15.0 % LAB HEMETOLOGY METHOD 10/07/2024 9:32 AM [facility] LAB Platelets 230 130 - 400 K/mcL LAB HEMETOLOGY METHOD 10/07/2024 9:32 AM [facility] LAB MPV 13.0(H) 7.0 - 11.0 FL LAB HEMETOLOGY METHOD 10/07/2024 9:32 AM [facility] LAB NRBC 0.0 <1.0 % LAB HEMETOLOGY METHOD 10/07/2024 9:32 AM [facility] LAB NRBC Absolute 0.00 <0.10 K/mcL LAB HEMETOLOGY METHOD 10/07/2024 9:32 AM [facility] LAB Neutrophils Relative 82.3 % LAB HEMETOLOGY METHOD 10/07/2024 9:32 AM [facility] LAB Lymphocytes Relative 10.0 % LAB HEMETOLOGY METHOD 10/07/2024 9:32 AM [facility] LAB Monocytes Relative 4.6 % LAB HEMETOLOGY METHOD 10/07/2024 9:32 AM [facility] LAB Eosinophils Relative 2.2 % LAB HEMETOLOGY METHOD 10/07/2024 9:32 AM [facility] LAB Basophils Relative 0.3 % LAB HEMETOLOGY METHOD 10/07/2024 9:32 AM [facility] LAB Immature Granulocytes Relative 0.6 % LAB HEMETOLOGY METHOD 10/07/2024 9:32 AM [facility] LAB Neutrophils Absolute 14.41(H) 1.50 - 7.00 K/mcL LAB HEMETOLOGY METHOD 10/07/2024 9:32 AM [facility] LAB Lymphocytes Absolute 1.74 1.00 - 5.00 K/mcL LAB HEMETOLOGY METHOD 10/07/2024 9:32 AM [facility] LAB Monocytes Absolute 0.80 0.20 - 1.00 K/mcL LAB HEMETOLOGY METHOD 10/07/2024 9:32 AM [facility] LAB Eosinophils Absolute 0.38 0.00 - 0.50 K/mcL LAB HEMETOLOGY METHOD 10/07/2024 9:32 AM [facility] LAB Basophils Absolute 0.05 0.00 - 0.20 K/mcL LAB HEMETOLOGY METHOD 10/07/2024 9:32 AM [facility] LAB Immature Granulocytes Absolute 0.10(H) 0.00 - 0.03 K/mcL LAB HEMETOLOGY METHOD 10/07/2024 9:32 AM [facility] LAB Blood Venous blood specimen / Unknown Venipuncture / Unknown 10/07/2024 5:18 AM EDT 10/07/2024 8:56 AM EDT us Prince Le MD LAB BLOOD ORDERABLES Final Resul t [facility] LAB [address] [place] [address], [place] [phone] * (ABNORMAL) Basic metabolic panel (10/07/2024 5:18 AM EDT) Sodium 132(L) 133 - 145 mmol/L LAB CHEMISTRY METHOD 10/07/2024 10:16 AM [facility] LAB Potassium 5.0 3.5 - 5.5 mmol/L LAB CHEMISTRY METHOD 10/07/2024 10:16 AM [facility] LAB Chloride 99 96 - 110 mmol/L LAB CHEMISTRY METHOD 10/07/2024 10:16 AM [facility] LAB CO2 22 21 - 32 mmol/L LAB CHEMISTRY METHOD 10/07/2024 10:16 AM [facility] LAB Anion Gap 11 3 - 11 LAB CHEMISTRY METHOD 10/07/2024 10:16 AM [facility] LAB Glucose 82 70 - 100 mg/dL LAB CHEMISTRY METHOD 10/07/2024 10:16 AM [facility] LAB BUN 54(H) 5 - 25 mg/dL LAB CHEMISTRY METHOD 10/07/2024 10:16 AM [facility] LAB Creatinine 2.44(H) 0.70 - 1.30 mg/dL LAB CHEMISTRY METHOD 10/07/2024 10:16 AM [facility] LAB eGFR 28(L) >=60 mL/min/1. 73m2 LAB CHEMISTRY METHOD 10/07/2024 10:16 AM [facility] LAB Comment:Calculation based on the Chronic Kidney Disease Epidemiology Collaboration (CKD-EPI) equation refit without adjustment for race. BUN/Creatinine Ratio 22.1 LAB CHEMISTRY METHOD 10/07/2024 10:16 AM T [facility] LAB Calcium 8.9 8.5 - 10.5 mg/dL LAB CHEMISTRY METHOD 10/07/2024 10:16 AM EDT [facility] LAB Blood Venous blood specimen / Unknown Venipuncture / Unknown 10/07/2024 5:18 AM EDT 10/07/2024 8:56 AM EDT us Prince Le MD LAB BLOOD ORDERABLES Final Resul t [facility] LAB [address] [place] [address], [place] [phone] documented in this encounter Visit Diagnoses Diagnosis Type 2 diabetes mellitus without complications (CMS/HCC V24, CMS/HCC V28) documented in this encounter Care Teams Licensed Funeral Director And Embalmer Relationship Specialty Start Date End Date Tram Álvarez MD 2 [facility] , [address] [place] [address] Physician Associ D/B/A: [facility] [place] PCP - General Internal Medicine 03/30/18 documented as of this encounter
--- OUTSIDE RECORDS SUMMARY | 2025-03-09 13:13 | XMS_ITS | Encounter Summary ---
Author Organization [facility] Address [address] [place] [address] Care Team Providers Care Manager Generation Name Role Phone Tram Álvarez MD Primary Care Provider [phone] Encounter Details Date Type Department Care Team (Late st Contact Info) Description 08/12/2024 Lab Requisition [facility] - Main Lab [address] [place] [address] Prince Le MD 38 [facility] [address] [place], [address] Type 2 diabetes mellitus without complications [...] mg/dL LAB CHEMISTRY METHOD 08/13/2024 11:42 AM [facility] LAB Blood Venous blood specimen / Unknown Venipuncture / Unknown 08/13/2024 7:38 AM EST 08/13/2024 11:02 AM EST us Prince Le MD LAB BLOOD ORDERABLES Final Resul t [facility] LAB [address] [place] [address], * (ABNORMAL) Comprehensive metabolic panel (08/13/2024 7:38 AM EST) Sodium 137 133 - 145 mmol/L LAB CHEMISTRY METHOD 08/13/2024 11:42 AM [facility] LAB Potassium 5.1 3.5 - 5.5 mmol/L LAB CHEMISTRY METHOD 08/13/2024 11:42 AM [facility] LAB Chloride 103 96 - 110 mmol/L LAB CHEMISTRY METHOD 08/13/2024 11:42 AM [facility] LAB CO2 29 21 - 32 mmol/L LAB CHEMISTRY METHOD 08/13/2024 11:42 AM [facility] LAB Anion Gap 5 3 - 11 LAB CHEMISTRY METHOD 08/13/2024 11:42 AM [facility] LAB Glucose 90 70 - 100 mg/dL LAB CHEMISTRY METHOD 08/13/2024 11:42 AM [facility] LAB BUN 31(H) 5 - 25 mg/dL LAB CHEMISTRY METHOD 08/13/2024 11:42 AM [facility] LAB Creatinine 0.98 0.70 - 1.30 mg/dL LAB CHEMISTRY METHOD 08/13/2024 11:42 AM [facility] LAB eGFR 84 >=60 mL/min/1. 73m2 LAB CHEMISTRY METHOD 08/13/2024 11:42 AM [facility] LAB Comment:Calculation based on the Chronic Kidney Disease Epidemiology Collaboration (CKD-EPI) equation refit without adjustment for race. BUN/Creatinine Ratio 31.6 LAB CHEMISTRY METHOD 08/13/2024 11:42 AM [facility] LAB Calcium 9.2 8.5 - 10.5 mg/dL LAB CHEMISTRY METHOD 08/13/2024 11:42 AM [facility] LAB AST (SGOT) 36 10 - 42 unit/L LAB CHEMISTRY METHOD 08/13/2024 11:42 AM [facility] LAB ALT (SGPT) 32 10 - 60 unit/L LAB CHEMISTRY METHOD 08/13/2024 11:42 AM [facility] LAB Alkaline Phosphatase 47 42 - 121 unit/L LAB CHEMISTRY METHOD 08/13/2024 11:42 AM [facility] LAB Total Protein 6.4 6.0 - 8.0 g/dL LAB CHEMISTRY METHOD 08/13/2024 11:42 AM [facility] LAB Albumin 3.4 3.2 - 5.0 g/dL LAB CHEMISTRY METHOD 08/13/2024 11:42 AM [facility] LAB Total Bilirubin 0.6 0.0 - 1.4 mg/dL LAB CHEMISTRY METHOD 08/13/2024 11:42 AM [facility] LAB Blood Venous blood specimen / Unknown Venipuncture / Unknown 08/13/2024 7:38 AM EST 08/13/2024 11:02 AM EST us Prince Le MD LAB BLOOD ORDERABLES Final Resul t [facility] LAB [address] [place] [address], * (ABNORMAL) Complete blood count (08/13/2024 7:30 AM EST) WBC 8.4 4.8 - 10.8 K/mcL LAB HEMETOLOGY METHOD 08/13/2024 11:11 AM [facility] LAB RBC 4.20(L) 4.50 - 5.50 M/mcL LAB HEMETOLOGY METHOD 08/13/2024 11:11 AM [facility] LAB Hemoglobin 11.6(L) 13.5 - 17.5 g/dL LAB HEMETOLOGY METHOD 08/13/2024 11:11 AM [facility] LAB Hematocrit 36.1(L) 42.0 - 54.0 % LAB HEMETOLOGY METHOD 08/13/2024 11:11 AM [facility] LAB MCV 86.2 79.0 - 98.0 FL LAB HEMETOLOGY METHOD 08/13/2024 11:11 AM [facility] LAB MCH 27.7 27.0 - 32.0 pcg LAB HEMETOLOGY METHOD 08/13/2024 11:11 AM [facility] LAB MCHC 32.1 32.0 - 37.0 g/dL LAB HEMETOLOGY METHOD 08/13/2024 11:11 AM [facility] LAB RDW 21.2(H) 11.0 - 15.0 % LAB HEMETOLOGY METHOD 08/13/2024 11:11 AM [facility] LAB Platelets 338 130 - 400 K/mcL LAB HEMETOLOGY METHOD 08/13/2024 11:11 AM [facility] LAB MPV 12.8(H) 7.0 - 11.0 FL LAB HEMETOLOGY METHOD 08/13/2024 11:11 AM [facility] LAB NRBC 0.0 <1.0 % LAB HEMETOLOGY METHOD 08/13/2024 11:11 AM [facility] LAB NRBC Absolute 0.00 <0.10 K/mcL LAB HEMETOLOGY METHOD 08/13/2024 11:11 AM [facility] LAB Blood Venous blood specimen / Unknown Venipuncture / Unknown 08/13/2024 7:30 AM EST 08/13/2024 10:59 AM EST us Prince Le MD LAB BLOOD ORDERABLES Final Resul t [facility] [address] [place] [address], documented in this encounter Visit Diagnoses Diagnosis Type 2 diabetes mellitus without complications (CMS/HCC V24, CMS/HCC V28) documented in this encounter Care Teams Manager Generation Relationship Specialty Start Date End Date Tram Álvarez MD 2 [facility] , [address] [facility] Physician Associ D/B/A: [facility] [place], [place] PCP - General Internal Medicine 03/30/18 documented as of this encounter
--- OUTSIDE RECORDS SUMMARY | 2025-03-09 13:13 | XMS_ITS | Encounter Summary ---
Author Organization [facility] Address [address] [place] [address] Care Team Providers Care Animator Name Role Phone Tram Álvarez MD Primary Care Provider Encounter Details Date Type Department Care Team (Late st Contact Info) Description 08/26/2024 Lab Requisition [facility] - Main Lab [address] [facility] [place] [address] Prince Le MD 38 [facility] [address] [place], [address] Type 2 diabetes mellitus without complications [...] mg/dL LAB CHEMISTRY METHOD 08/27/2024 9:27 AM [facility] LAB Triglycerides 249(H) 0 - 150 mg/dL LAB CHEMISTRY METHOD 08/27/2024 9:27 AM [facility] LAB HDL 30(L) >=40 mg/dL LAB CHEMISTRY METHOD 08/27/2024 9:27 AM [facility] LAB LDL Calculated 16 0 - 100 mg/dL LAB CHEMISTRY METHOD 08/27/2024 9:27 AM [facility] LAB VLDL Cholesterol Maikel 49.8 mg/dL LAB CHEMISTRY METHOD 08/27/2024 9:27 AM [facility] LAB Non HDL Chol. (LDL+VLDL) 66 <145 mg/dL LAB CHEMISTRY METHOD 08/27/2024 9:27 AM [facility] LAB Chol/HDL Ratio 3.2 0.0 - 4.4 LAB CHEMISTRY METHOD 08/27/2024 9:27 AM [facility] LAB Blood Venous blood specimen / Unknown Venipuncture / Unknown 08/27/2024 6:34 AM EST 08/27/2024 8:52 AM EST us Prince Le MD LAB BLOOD ORDERABLES Final Resul t [facility] LAB [address] [place] [address], * (ABNORMAL) C-reactive protein (08/27/2024 6:34 AM EST) C-Reactive Protein 1.47(H) <=0.50 mg/dL LAB CHEMISTRY METHOD 08/27/2024 9:27 AM [facility] LAB Blood Venous blood specimen / Unknown Venipuncture / Unknown 08/27/2024 6:34 AM EST 08/27/2024 8:52 AM EST us Prince Le MD LAB BLOOD ORDERABLES Final Resul t [facility] LAB [address] [place] [address], [place] [phone] * (ABNORMAL) Comprehensive metabolic panel (08/27/2024 6:34 AM EST) Sodium 139 133 - 145 mmol/L LAB CHEMISTRY METHOD 08/27/2024 9:27 AM [facility] LAB Potassium 4.6 3.5 - 5.5 mmol/L LAB CHEMISTRY METHOD 08/27/2024 9:27 AM [facility] LAB Chloride 105 96 - 110 mmol/L LAB CHEMISTRY METHOD 08/27/2024 9:27 AM [facility] LAB CO2 31 21 - 32 mmol/L LAB CHEMISTRY METHOD 08/27/2024 9:27 AM [facility] LAB Anion Gap 3 3 - 11 LAB CHEMISTRY METHOD 08/27/2024 9:27 AM [facility] LAB Glucose 112(H) 70 - 100 mg/dL LAB CHEMISTRY METHOD 08/27/2024 9:27 AM [facility] LAB BUN 19 5 - 25 mg/dL LAB CHEMISTRY METHOD 08/27/2024 9:27 AM [facility] LAB Creatinine 0.71 0.70 - 1.30 mg/dL LAB CHEMISTRY METHOD 08/27/2024 9:27 AM [facility] LAB eGFR 100 >=60 mL/min/1. 73m2 LAB CHEMISTRY METHOD 08/27/2024 9:27 AM [facility] LAB Comment:Calculation based on the Chronic Kidney Disease Epidemiology Collaboration (CKD-EPI) equation refit without adjustment for race. BUN/Creatinine Ratio 26.8 LAB CHEMISTRY METHOD 08/27/2024 9:27 AM [facility] LAB Calcium 9.5 8.5 - 10.5 mg/dL LAB CHEMISTRY METHOD 08/27/2024 9:27 AM [facility] LAB AST (SGOT) 19 10 - 42 unit/L LAB CHEMISTRY METHOD 08/27/2024 9:27 AM [facility] LAB ALT (SGPT) 29 10 - 60 unit/L LAB CHEMISTRY METHOD 08/27/2024 9:27 AM [facility] LAB Alkaline Phosphatase 53 42 - 121 unit/L LAB CHEMISTRY METHOD 08/27/2024 9:27 AM [facility] LAB Total Protein 6.5 6.0 - 8.0 g/dL LAB CHEMISTRY METHOD 08/27/2024 9:27 AM [facility] LAB Albumin 3.2 3.2 - 5.0 g/dL LAB CHEMISTRY METHOD 08/27/2024 9:27 AM [facility] LAB Total Bilirubin 0.6 0.0 - 1.4 mg/dL LAB CHEMISTRY METHOD 08/27/2024 9:27 AM [facility] LAB Blood Venous blood specimen / Unknown Venipuncture / Unknown 08/27/2024 6:34 AM EST 08/27/2024 8:52 AM EST us Prince Le MD LAB BLOOD ORDERABLES Final Resul t [facility] LAB [address] [place] [address], * (ABNORMAL) Complete blood count (08/27/2024 6:34 AM EST) WBC 12.7(H) 4.8 - 10.8 K/mcL LAB HEMETOLOGY METHOD 08/27/2024 9:04 AM [facility] LAB RBC 3.80(L) 4.50 - 5.50 M/mcL LAB HEMETOLOGY METHOD 08/27/2024 9:04 AM [facility] LAB Hemoglobin 10.9(L) 13.5 - 17.5 g/dL LAB HEMETOLOGY METHOD 08/27/2024 9:04 AM [facility] LAB Hematocrit 34.6(L) 42.0 - 54.0 % LAB HEMETOLOGY METHOD 08/27/2024 9:04 AM [facility] LAB MCV 91.5 79.0 - 98.0 FL LAB HEMETOLOGY METHOD 08/27/2024 9:04 AM [facility] LAB MCH 28.8 27.0 - 32.0 pcg LAB HEMETOLOGY METHOD 08/27/2024 9:04 AM [facility] LAB MCHC 31.5(L) 32.0 - 37.0 g/dL LAB HEMETOLOGY METHOD 08/27/2024 9:04 AM [facility] LAB RDW 20.3(H) 11.0 - 15.0 % LAB HEMETOLOGY METHOD 08/27/2024 9:04 AM [facility] LAB Platelets 422(H) 130 - 400 K/mcL LAB HEMETOLOGY METHOD 08/27/2024 9:04 AM [facility] LAB MPV 12.5(H) 7.0 - 11.0 FL LAB HEMETOLOGY METHOD 08/27/2024 9:04 AM [facility] LAB NRBC 0.0 <1.0 % LAB HEMETOLOGY METHOD 08/27/2024 9:04 AM [facility] LAB NRBC Absolute 0.00 <0.10 K/mcL LAB HEMETOLOGY METHOD 08/27/2024 9:04 AM [facility] LAB Blood Venous blood specimen / Unknown Venipuncture / Unknown 08/27/2024 6:34 AM EST 08/27/2024 8:52 AM EST us Prince Le MD LAB BLOOD ORDERABLES Final Resul t [facility] [address] [place] [address], documented in this encounter Visit Diagnoses Diagnosis Type 2 diabetes mellitus without complications (CMS/HCC V24, CMS/HCC V28) documented in this encounter Care Teams Animator Relationship Specialty Start Date End Date Tram Álvarez MD 2 [facility] , [address] [facility] Physician Associ D/B/A: [facility] [place], [place] PCP - General Internal Medicine 03/30/18 documented as of this encounter
--- OUTSIDE RECORDS SUMMARY | 2025-03-09 13:13 | XMS_ITS | Encounter Summary ---
Author Organization [facility] Address [address] [place] [address] Care Team Providers Care Private Duty Nurse Name Role Phone Tram Álvarez MD Primary Care Provider [phone] Encounter Details Date Type Department Care Team (Late st Contact Info) Description 07/22/2024 Lab Requisition [facility] - Main Lab [address] [place] [address] Prince Le MD 38 [facility] [address] [place], [address] Type 2 diabetes mellitus without complications [...] Resul t [facility] [address] [place] [address], * (ABNORMAL) Comprehensive metabolic panel (07/23/2024 6:52 [...] Resul t [facility] [address] [place] [address], * (ABNORMAL) Complete blood count (07/23/2024 6:52 AM EST) WBC 9.2 4.8 - 10.8 K/mcL LAB HEMETOLOGY METHOD 07/23/2024 10:13 AM EST [facility] LAB RBC 4.90 4.50 - [...] BLOOD ORDERABLES Final Resul t [facility] [address] [place] [address], documented in this encounter Visit Diagnoses Diagnosis Type 2 diabetes mellitus without complications (CMS/HCC V24, CMS/HCC V28) documented in this encounter Care Teams Private Duty Nurse Relationship Specialty Start Date End Date Tram Álvarez MD 2 [facility] , [address] [facility] Physician Associ D/B/A: [facility] [place], [place] PCP - General Internal Medicine 03/30/18 documented as of this encounter
--- OUTSIDE RECORDS SUMMARY | 2025-03-09 13:13 | XMS_ITS | Encounter Summary ---
Author Organization [facility] Address [address] [place] [address] Care Team Providers Care Grape Grower Name Role Phone Tram Álvarez MD Primary Care Provider [phone] Encounter Details Date Type Department Care Team (Late st Contact Info) Description 07/16/2024 Lab Requisition [facility] - Main Lab [address] [place] [address] Prince Le MD 38 [facility] [address] [place], [address] Type 2 diabetes mellitus without complications [...] mg/dL LAB CHEMISTRY METHOD 07/16/2024 12:50 PM [facility] LAB Blood Venous blood specimen / Unknown Venipuncture / Unknown 07/16/2024 8:00 AM EST 07/16/2024 11:21 AM EST us Prince Le MD LAB BLOOD ORDERABLES Final Resul t [facility] [address] [place] [address], [place] [phone] * (ABNORMAL) Comprehensive metabolic panel (07/16/2024 8:00 AM EST) Sodium 137 133 - 145 mmol/L LAB CHEMISTRY METHOD 07/16/2024 1:13 PM [facility] Potassium 5.1 3.5 - 5.5 mmol/L LAB CHEMISTRY METHOD 07/16/2024 1:13 PM [facility] Chloride 103 96 - 110 mmol/L LAB CHEMISTRY METHOD 07/16/2024 1:13 PM [facility] CO2 27 21 - 32 mmol/L LAB CHEMISTRY METHOD 07/16/2024 1:13 PM [facility] Anion Gap 7 3 - 11 LAB CHEMISTRY METHOD 07/16/2024 1:13 PM [facility] Glucose 40(L) 70 - 100 mg/dL LAB CHEMISTRY METHOD 07/16/2024 1:13 PM [facility] BUN 35(H) 5 - 25 mg/dL LAB CHEMISTRY METHOD 07/16/2024 1:13 PM [facility] Creatinine 1.27 0.70 - 1.30 mg/dL LAB CHEMISTRY METHOD 07/16/2024 1:13 PM [facility] LAB eGFR 62 >=60 mL/min/1. 73m2 LAB CHEMISTRY METHOD 07/16/2024 1:13 PM [facility] Comment:Calculation based on the Chronic Kidney Disease Epidemiology Collaboration (CKD-EPI) equation refit without adjustment for race. BUN/Creatinine Ratio 27.6 LAB CHEMISTRY METHOD 07/16/2024 1:13 PM [facility] Calcium 9.0 8.5 - 10.5 mg/dL LAB CHEMISTRY METHOD 07/16/2024 1:13 PM [facility] AST (SGOT) 18 10 - 42 unit/L LAB CHEMISTRY METHOD 07/16/2024 1:13 PM [facility] ALT (SGPT) 19 10 - 60 unit/L LAB CHEMISTRY METHOD 07/16/2024 1:13 PM [facility] Alkaline Phosphatase 62 42 - 121 unit/L LAB CHEMISTRY METHOD 07/16/2024 1:13 PM [facility] Total Protein 6.7 6.0 - 8.0 g/dL LAB CHEMISTRY METHOD 07/16/2024 1:13 PM [facility] Albumin 3.5 3.2 - 5.0 g/dL LAB CHEMISTRY METHOD 07/16/2024 1:13 PM [facility] Total Bilirubin 0.4 0.0 - 1.4 mg/dL LAB CHEMISTRY METHOD 07/16/2024 1:13 PM [facility] Blood Venous blood specimen / Unknown Venipuncture / Unknown 07/16/2024 8:00 AM EST 07/16/2024 11:21 AM EST us Prince Le MD LAB BLOOD ORDERABLES Final Resul t [facility] [address] [place] [address], * (ABNORMAL) Complete blood count (07/16/2024 8:00 AM EST) WBC 10.9(H) 4.8 - 10.8 K/mcL LAB HEMETOLOGY METHOD 07/16/2024 11:53 AM EST [facility] RBC 4.90 4.50 - 5.50 M/mcL LAB HEMETOLOGY METHOD 07/16/2024 11:53 AM [facility] Hemoglobin 13.4(L) 13.5 - 17.5 g/dL LAB HEMETOLOGY METHOD 07/16/2024 11:53 AM [facility] Hematocrit 41.6(L) 42.0 - 54.0 % LAB HEMETOLOGY METHOD 07/16/2024 11:53 AM [facility] MCV 85.1 79.0 - 98.0 FL LAB HEMETOLOGY METHOD 07/16/2024 11:53 AM [facility] MCH 27.4 27.0 - 32.0 pcg LAB HEMETOLOGY METHOD 07/16/2024 11:53 AM [facility] MCHC 32.2 32.0 - 37.0 g/dL LAB HEMETOLOGY METHOD 07/16/2024 11:53 AM [facility] RDW 18.3(H) 11.0 - 15.0 % LAB HEMETOLOGY METHOD 07/16/2024 11:53 AM [facility] Platelets 413(H) 130 - 400 K/mcL LAB HEMETOLOGY METHOD 07/16/2024 11:53 AM [facility] MPV 12.4(H) 7.0 - 11.0 FL LAB HEMETOLOGY METHOD 07/16/2024 11:53 AM [facility] NRBC 0.0 <1.0 % LAB HEMETOLOGY METHOD 07/16/2024 11:53 AM [facility] LAB NRBC Absolute 0.00 <0.10 K/mcL LAB HEMETOLOGY METHOD 07/16/2024 11:53 AM [facility] Blood Venous blood specimen / Unknown Venipuncture / Unknown 07/16/2024 8:00 AM EST 07/16/2024 11:21 AM EST us Prince Le MD LAB BLOOD ORDERABLES Final Resul t [facility] [address] [place] [address], documented in this encounter Visit Diagnoses Diagnosis Type 2 diabetes mellitus without complications (CMS/HCC V24, CMS/HCC V28) documented in this encounter Care Teams Grape Grower Relationship Specialty Start Date End Date Tram Álvarez MD 2 [facility] , [address] [facility] Physician Associ D/B/A: [facility] [place] PCP - General Internal Medicine 03/30/18 documented as of this encounter
--- OUTSIDE RECORDS SUMMARY | 2025-03-09 13:13 | XMS_ITS | Encounter Summary ---
Author Organization [facility] Address [address] [place] [address] Care Team Providers Care Pbx Supervisor Name Role Phone Tram Álvarez MD Primary Care Provider [phone] Encounter Details Date Type Department Care Team (Late st Contact Info) Description 03/01/2025 Lab Requisition [facility] - Main Lab 299 [facility] [place] [address] Preeti Lujan MD [address] [id number] Essential (primary) hypertension Social History Tobacco Use [...] LAB CHEMISTRY METHOD 03/01/2025 11:14 AM EDT [facility] Potassium 4.6 3.5 - 5.5 mmol/L LAB CHEMISTRY METHOD 03/01/2025 11:14 AM [facility] Chloride 112(H) 96 - 110 mmol/L LAB CHEMISTRY METHOD 03/01/2025 11:14 AM [facility] CO2 25 21 - 32 mmol/L LAB CHEMISTRY METHOD 03/01/2025 11:14 AM [facility] Anion Gap 4 3 - 11 LAB CHEMISTRY METHOD 03/01/2025 11:14 AM [facility] Glucose 135(H) 70 - 100 mg/dL LAB CHEMISTRY METHOD 03/01/2025 11:14 AM [facility] BUN 25 5 - 25 mg/dL LAB CHEMISTRY METHOD 03/01/2025 11:14 AM [facility] Creatinine 0.76 0.70 - 1.30 mg/dL LAB CHEMISTRY METHOD 03/01/2025 11:14 AM [facility] eGFR 97 >=60 mL/min/1. 73m2 LAB CHEMISTRY METHOD 03/01/2025 11:14 AM [facility] Comment:Calculation based on the Chronic Kidney Disease Epidemiology Collaboration (CKD-EPI) equation refit without adjustment for race. BUN/Creatinine Ratio 32.9 LAB CHEMISTRY METHOD 03/01/2025 11:14 AM [facility] Calcium 8.5 8.5 - 10.5 mg/dL LAB CHEMISTRY METHOD 03/01/2025 11:14 AM [facility] Blood Venous blood specimen / Unknown Venipuncture / Unknown 03/01/2025 6:05 AM EDT 03/01/2025 8:40 AM EDT us Preeti Lujan MD LAB BLOOD ORDERABLES Fin al Result [facility] [address] [place] [address], documented in this encounter Visit Diagnoses Diagnosis Essential (primary) hypertension Unspecified essential hypertension documented in this encounter Care Teams Pbx Supervisor Relationship Specialty Start Date End Date Tram Álvarez MD 2 [facility] , [address] Physician Associ D/B/A: [facility] JAS Duque PCP - General Internal Medicine 03/30/18 documented as of this encounter
--- OUTSIDE RECORDS SUMMARY | 2025-03-09 13:13 | XMS_ITS | Encounter Summary ---
Author Organization [facility] Address [address] [place] [address] Care Team Providers Care Superintendent Local Name Role Phone Tram Álvarez MD Primary Care Provider [phone] Encounter Details Date Type Department Care Team (Late st Contact Info) Description 05/14/2024 Lab Requisition [facility] - Main Lab [address] [place] [address] Prince Le MD 38 [facility] 204 [place], [address] Essential (primary) hypertension Social History Tobacco [...] LAB CHEMISTRY METHOD 05/17/2024 10:43 AM EST [facility] Potassium 4.5 3.5 - 5.5 mmol/L LAB CHEMISTRY METHOD 05/17/2024 10:43 AM EST [facility] Chloride 110 96 - 110 mmol/L LAB CHEMISTRY METHOD 05/17/2024 10:43 AM [facility] CO2 27 21 - 32 mmol/L LAB CHEMISTRY METHOD 05/17/2024 10:43 AM [facility] Anion Gap 6 3 - 11 LAB CHEMISTRY METHOD 05/17/2024 10:43 AM [facility] Glucose 99 70 - 100 mg/dL LAB CHEMISTRY METHOD 05/17/2024 10:43 AM [facility] BUN 37(H) 5 - 25 mg/dL LAB CHEMISTRY METHOD 05/17/2024 10:43 AM [facility] Creatinine 1.29 0.70 - 1.30 mg/dL LAB CHEMISTRY METHOD 05/17/2024 10:43 AM [facility] eGFR 60 >=60 mL/min/1. 73m2 LAB CHEMISTRY METHOD 05/17/2024 10:43 AM [facility] Comment:Calculation based on the Chronic Kidney Disease Epidemiology Collaboration (CKD-EPI) equation refit without adjustment for race. BUN/Creatinine Ratio 28.7 LAB CHEMISTRY METHOD 05/17/2024 10:43 AM [facility] Calcium 9.3 8.5 - 10.5 mg/dL LAB CHEMISTRY METHOD 05/17/2024 10:43 AM [facility] Blood Venous blood specimen / Unknown Venipuncture / Unknown 05/17/2024 6:41 AM EST 05/17/2024 9:49 AM EST us Prince Le MD LAB BLOOD ORDERABLES Final Resul t [facility] [address] [place] [address], * (ABNORMAL) Complete blood count (05/17/2024 6:41 AM EST) WBC 9.0 4.8 - 10.8 K/mcL LAB HEMETOLOGY METHOD 05/17/2024 10:23 AM [facility] RBC 5.50 4.50 - 5.50 M/mcL LAB HEMETOLOGY METHOD 05/17/2024 10:23 AM [facility] Hemoglobin 15.0 13.5 - 17.5 g/dL LAB HEMETOLOGY METHOD 05/17/2024 10:23 AM [facility] Hematocrit 48.3 42.0 - 54.0 % LAB HEMETOLOGY METHOD 05/17/2024 10:23 AM [facility] MCV 88.0 79.0 - 98.0 FL LAB HEMETOLOGY METHOD 05/17/2024 10:23 AM [facility] MCH 27.3 27.0 - 32.0 pcg LAB HEMETOLOGY METHOD 05/17/2024 10:23 AM [facility] MCHC 31.1(L) 32.0 - 37.0 g/dL LAB HEMETOLOGY METHOD 05/17/2024 10:23 AM [facility] RDW 16.6(H) 11.0 - 15.0 % LAB HEMETOLOGY METHOD 05/17/2024 10:23 AM [facility] Platelets 240 130 - 400 K/mcL LAB HEMETOLOGY METHOD 05/17/2024 10:23 AM [facility] MPV 13.4(H) 7.0 - 11.0 FL LAB HEMETOLOGY METHOD 05/17/2024 10:23 AM [facility] NRBC 0.0 <1.0 % LAB HEMETOLOGY METHOD 05/17/2024 10:23 AM [facility] NRBC Absolute 0.00 <0.10 K/mcL LAB HEMETOLOGY METHOD 05/17/2024 10:23 AM [facility] Blood Venous blood specimen / Unknown Venipuncture / Unknown 05/17/2024 6:41 AM EST 05/17/2024 9:51 AM EST us Prince Le MD LAB BLOOD ORDERABLES Final Resul t [facility] [address] [place] [address], [place] [phone] documented in this encounter Visit Diagnoses Diagnosis Essential (primary) hypertension Unspecified essential hypertension documented in this encounter Care Teams Superintendent Local Relationship Specialty Start Date End Date Tram Álvarez MD 2 [facility] , [address] [facility] Physician Associ D/B/A: [facility] [place], [place] PCP - General Internal Medicine 03/30/18 documented as of this encounter
--- OUTSIDE RECORDS SUMMARY | 2025-03-09 13:13 | XMS_ITS | Clinical Summary ---
Author Organization [facility] Address [address] [place] [address] Phone Care Team Providers Care Resident Caregiver Name Role Phone Tram Álvarez MD Primary Care Provider [phone] Encounters Date Type Department Care Team Description 03/01/2025 Lab Requisition [facility] Lab [address] [place] [address] Preeti Lujan MD Essential (primary) hypertension 02/24/2025 Lab Requisition [facility] Lab [address] [place] [address] Preeti Lujan MD Essential (primary) [...] EDT Type 2 diabetes mellitus without complications ([facility] V24, [facility] V28) LIPID PANEL WITH REFLEX TO DIRECT LDL Routine 08/27/2024 6:34 AM EST Type 2 diabetes mellitus without complications ([facility]) from Last 3 Months or Most Recently Relevant to Health Maintenance Results * (ABNORMAL) Basic metabolic panel (03/01/2025 6:05 AM EDT) Only the most recent of2 resultswithin the time period is included. Sodium 141 133 - 145 mmol/L LAB CHEMISTRY METHOD 03/01/2025 11:14 AM [facility] Potassium 4.6 3.5 - 5.5 [...] LAB CHEMISTRY METHOD 03/01/2025 11:[address] [facility] Calcium 8.5 8.5 - 10.5 mg/dL LAB CHEMISTRY METHOD 03/01/2025 11:14 AM [facility] Blood Venous blood specimen / Unknown Venipuncture / Unknown 03/01/2025 6:05 AM EDT 03/01/2025 8:40 AM EDT us Preeti Lujan MD LAB BLOOD ORDERABLES Fin al Result [facility] [address] [place] [address], * (ABNORMAL) Complete blood count (02/24/2025 6:34 AM EDT) WBC 7.9 4.8 - 10.8 K/mcL LAB HEMETOLOGY METHOD 02/24/2025 9:35 AM [facility] RBC 3.90(L) 4.50 - 5.50 M/mcL LAB HEMETOLOGY METHOD 02/24/2025 9:35 AM [facility] Hemoglobin 11.0(L) 13.5 - 17.5 g/dL LAB HEMETOLOGY METHOD 02/24/2025 9:35 AM [facility] Hematocrit 36.9(L) 42.0 - 54.0 % LAB HEMETOLOGY METHOD 02/24/2025 9:35 AM [facility] MCV 95.3 79.0 - 98.0 FL LAB HEMETOLOGY METHOD 02/24/2025 9:35 AM [facility] MCH 28.4 27.0 - 32.0 pcg LAB HEMETOLOGY METHOD 02/24/2025 9:[address] [facility] MCHC 29.8(L) 32.0 - 37.0 g/dL LAB HEMETOLOGY METHOD 02/24/2025 9:[address] [facility] RDW 17.6(H) 11.0 - 15.0 % LAB HEMETOLOGY METHOD 02/24/2025 9:[address] [facility] Platelets 287 130 - 400 K/mcL LAB HEMETOLOGY METHOD 02/24/2025 9:[address] [facility] MPV 12.9(H) 7.0 - 11.0 FL LAB HEMETOLOGY METHOD 02/24/2025 9:[address] [facility] NRBC 0.0 <1.0 % LAB HEMETOLOGY METHOD 02/24/2025 9:[address] [facility] NRBC Absolute 0.00 <0.10 K/mcL LAB HEMETOLOGY METHOD 02/24/2025 9:[address] [facility] Blood Venous blood specimen / Unknown Venipuncture / Unknown 02/24/2025 6:34 AM EDT 02/24/2025 8:31 AM EDT us Preeti Lujan MD LAB BLOOD ORDERABLES Fin al Result [facility] [address] [place] [address], * Hemoglobin A1c (10/22/2024 6:43 AM EDT) Hemoglobin A1C 5.5 <6.5 % LAB CHEMISTRY METHOD 10/22/2024 2:[address] [facility] Mean Bld Glu Estim. 111 mg/dL LAB CHEMISTRY METHOD 10/22/2024 2:[address] [facility] Blood Venous blood specimen / Unknown Venipuncture / Unknown 10/22/2024 6:43 AM EDT 10/22/2024 9:05 AM EDT us Preeti Lujan MD LAB BLOOD ORDERABLES Fin al Result Performing Organization Address City/[facility]/ZIP Co de Phone Number [facility] [address] [place] [address], [place] [phone] * (ABNORMAL) Lipid panel with reflex to direct LDL (08/27/2024 6:34 AM EST) [facility] Cholesterol 96 0 - 200 mg/dL LAB CHEMISTRY METHOD 08/27/2024 9:[address] [facility] Triglycerides 249(H) 0 - 150 mg/dL LAB CHEMISTRY METHOD 08/27/2024 9:27 AM [facility] HDL 30(L) >=40 mg/dL LAB CHEMISTRY METHOD 08/27/2024 9:[address] [facility] LDL Calculated 16 0 - 100 mg/dL LAB CHEMISTRY METHOD 08/27/2024 9:[address] [facility] VLDL Cholesterol Maikel 49.8 mg/dL LAB CHEMISTRY METHOD 08/27/2024 9:[address] [facility] Non HDL Chol. (LDL+VLDL) 66 <145 mg/dL LAB CHEMISTRY METHOD 08/27/2024 9:[address] [facility] Chol/HDL Ratio 3.2 0.0 - 4.4 LAB CHEMISTRY METHOD 08/27/2024 9:27 AM [facility] Blood Venous blood specimen / Unknown Venipuncture / Unknown 08/27/2024 6:34 AM EST 08/27/2024 8:52 AM EST us Prince Le MD LAB BLOOD ORDERABLES Final Resul t Performing Organization Address [facility]/ZIP Co de Phone Number [facility] [address] [place] [address], [place] [phone] from Last 3 Months or Most Recently Relevant to Health Maintenance Insurance [employer] Member Subscriber Plan / Payer (Ef fective 2023-Present) Name:EDER GARCIA Relation to Subscriber:Self Name:Rick Eder Talamantes Payer ID:[id number] Group ID:[id number] Type:Not on file Address: [place] [address] [address] [id number] Care Teams Resident Caregiver Relationship Specialty Start Date End Date Tram Álvarez MD [address] [place] [address] , [address] [facility] Physician Associ D/B/A: [facility] JAS Duque PCP - General Internal Medicine 03/30/18
--- OUTSIDE RECORDS SUMMARY | 2025-03-09 13:13 | XMS_ITS | Clinical Summary ---
Author Organization [facility] Address [address] [place] [address] Care Team Providers Care Cloud Solutions Architect Name Role Phone Tram Royal MD Primary Care Provider [phone] Allergies Active Allergy Reactions Criticality Noted Date [...] % PVNMA 04/28/2020 us [facility] [id number] LICITED RESULTS Final Result PVNMA from Last 3 Months or Most Recently Relevant to Health Maintenance Insurance [id number] [place] [address] [place] [address] [place] [address] [place] Care Teams Cloud Solutions Architect Relationship Specialty Start Date End Date Tram Royal MD [address] [place] PCP - General 07/17/20
--- OUTSIDE RECORDS SUMMARY | 2025-03-09 13:13 | XMS_ITS | Encounter Summary ---
Author Organization [facility] Address [address] [place] [address] Care Team Providers Care Addiction Social Worker Name Role Phone Tram Álvarez MD Primary Care Provider [phone] Encounter Details Date Type Department Care Team (Late st Contact Info) Description 06/18/2024 Lab Requisition [facility] - Main Lab [address] [place] [address] Prince Le MD 38 [facility] 204 [place], [address] Nausea with vomiting, unspecified; Chronic kidney [...] LAB CHEMISTRY METHOD 06/18/2024 11:17 AM EST [facility] Potassium 4.6 3.5 - 5.5 [...] [facility] Comment:Calculation based on the Chronic Kidney Disease Epidemiology Collaboration (CKD-EPI) equation refit without adjustment for race. BUN/Creatinine Ratio 24.3 LAB CHEMISTRY METHOD 06/18/2024 11:17 AM [facility] Calcium 9.3 8.5 - 10.5 mg/dL LAB CHEMISTRY METHOD 06/18/2024 11:17 AM [facility] Blood Venous blood specimen / Unknown Venipuncture / Unknown 06/18/2024 6:44 AM EST 06/18/2024 9:17 AM EST us Prince Le MD LAB BLOOD ORDERABLES Final Resul t [facility] [address] [place] [address], [place] [phone] * (ABNORMAL) Complete blood count (06/18/2024 6:44 AM EST) WBC 8.4 4.8 - 10.8 K/[facility] LAB HEMETOLOGY METHOD 06/18/2024 10:46 AM [facility] RBC 5.10 4.50 - 5.50 M/[facility] LAB HEMETOLOGY METHOD 06/18/2024 10:46 AM [facility] [...] 06/18/2024 10:46 AM [facility] Platelets 248 130 - 400 K/[facility] LAB HEMETOLOGY METHOD 06/18/2024 10:46 AM [facility] MPV 12.7(H) 7.0 - 11.0 FL LAB HEMETOLOGY METHOD 06/18/2024 10:46 AM [facility] NRBC 0.0 <1.0 % LAB HEMETOLOGY METHOD 06/18/2024 10:46 AM [facility] NRBC Absolute 0.00 <0.10 K/[facility] LAB HEMETOLOGY METHOD 06/18/2024 10:46 AM [facility] Blood Venous blood specimen / Unknown Venipuncture / Unknown 06/18/2024 6:44 AM EST 06/18/2024 9:17 AM EST us Prince Le MD LAB BLOOD ORDERABLES Final [facility] t [facility] [address] [place] [address], documented in this encounter Visit Diagnoses Diagnosis Nausea with vomiting, unspecified Chronic kidney disease, unspecified documented in this encounter Care Teams Addiction Social Worker Relationship Specialty Start Date End Date Tram Álvarez MD 2 [facility] , [address] Physician Associ D/B/A: [facility] JAS Duque PCP - General Internal Medicine 03/30/18 documented as of this encounter
--- OUTSIDE RECORDS SUMMARY | 2025-03-09 13:13 | XMS_ITS | Encounter Summary ---
Author Organization [facility] Address [address] [place] [address] Care Team Providers Care Dumb Waiter Operator Name Role Phone Tram Álvarez MD Primary Care Provider [phone] Encounter Details Date Type Department Care Team (Late st Contact Info) Description 08/19/[address] [facility] - Main Lab [address] [place] [address] Prince Le MD 38 [facility] 204 [place], [address] Type 2 diabetes mellitus without complications [...] mg/dL LAB CHEMISTRY METHOD 08/20/2024 11:12 AM [facility] Blood Venous blood specimen / Unknown Venipuncture / Unknown 08/20/2024 7:39 AM EST 08/20/2024 10:36 AM EST us Prince Le MD LAB BLOOD ORDERABLES Final Resul t [facility] [address] [place] [address], * (ABNORMAL) Comprehensive metabolic panel (08/20/2024 7:39 AM EST) Sodium 139 133 - 145 mmol/L LAB CHEMISTRY METHOD 08/20/2024 11:11 AM [facility] Potassium 4.5 3.5 - 5.5 mmol/L LAB CHEMISTRY METHOD 08/20/2024 11:11 AM [facility] Chloride 109 96 - 110 mmol/L LAB CHEMISTRY METHOD 08/20/2024 11:11 AM [facility] CO2 26 21 - 32 mmol/L LAB CHEMISTRY METHOD 08/20/2024 11:11 AM [facility] Anion Gap 4 3 - 11 LAB CHEMISTRY METHOD 08/20/2024 11:11 AM [facility] Glucose 120(H) 70 - 100 mg/dL LAB CHEMISTRY METHOD 08/20/2024 11:11 AM [facility] BUN 22 5 - 25 mg/dL LAB CHEMISTRY METHOD 08/20/2024 11:11 AM [facility] Creatinine 0.78 0.70 - 1.30 mg/dL LAB CHEMISTRY METHOD 08/20/2024 11:11 AM [facility] eGFR 97 >=60 mL/min/1. 73m2 LAB CHEMISTRY METHOD 08/20/2024 11:11 AM [facility] Comment:Calculation based on the Chronic Kidney Disease Epidemiology Collaboration (CKD-EPI) equation refit without adjustment for race. BUN/Creatinine Ratio 28.2 LAB CHEMISTRY METHOD 08/20/2024 11:11 AM [facility] Calcium 9.3 8.5 - 10.5 mg/dL LAB CHEMISTRY METHOD 08/20/2024 11:11 AM [facility] AST (SGOT) 35 10 - 42 unit/L LAB CHEMISTRY METHOD 08/20/2024 11:11 AM [facility] ALT (SGPT) 30 10 - 60 unit/L LAB CHEMISTRY METHOD 08/20/2024 11:11 AM [facility] Alkaline Phosphatase 39(L) 42 - 121 unit/L LAB CHEMISTRY METHOD 08/20/2024 11:11 AM [facility] Total Protein 6.6 6.0 - 8.0 g/dL LAB CHEMISTRY METHOD 08/20/2024 11:11 AM [facility] Albumin 3.5 3.2 - 5.0 g/dL LAB CHEMISTRY METHOD 08/20/2024 11:11 AM [facility] Total Bilirubin 0.8 0.0 - 1.4 mg/dL LAB CHEMISTRY METHOD 08/20/2024 11:11 AM [facility] Blood Venous blood specimen / Unknown Venipuncture / Unknown 08/20/2024 7:39 AM EST 08/20/2024 10:36 AM EST us Prince Le MD LAB BLOOD ORDERABLES Final Resul t [facility] [address] [place] [address], * (ABNORMAL) Complete blood count (08/20/2024 7:39 AM EST) WBC 13.2(H) 4.8 - 10.8 K/mcL LAB HEMETOLOGY METHOD 08/20/2024 10:52 AM [facility] RBC 3.90(L) 4.50 - 5.50 M/mcL LAB HEMETOLOGY METHOD 08/20/2024 10:52 AM [facility] Hemoglobin 11.0(L) 13.5 - 17.5 g/dL LAB HEMETOLOGY METHOD 08/20/2024 10:52 AM [facility] Hematocrit 33.1(L) 42.0 - 54.0 % LAB HEMETOLOGY METHOD 08/20/2024 10:52 AM [facility] MCV 85.3 79.0 - 98.0 FL LAB HEMETOLOGY METHOD 08/20/2024 10:52 AM [facility] MCH 28.4 27.0 - 32.0 pcg LAB HEMETOLOGY METHOD 08/20/2024 10:52 AM [facility] MCHC 33.2 32.0 - 37.0 g/dL LAB HEMETOLOGY METHOD 08/20/2024 10:52 AM [facility] RDW 20.9(H) 11.0 - 15.0 % LAB HEMETOLOGY METHOD 08/20/2024 10:52 AM [facility] Platelets 329 130 - 400 K/mcL LAB HEMETOLOGY METHOD 08/20/2024 10:52 AM [facility] MPV 13.2(H) 7.0 - 11.0 FL LAB HEMETOLOGY METHOD 08/20/2024 10:52 AM [facility] NRBC 0.0 <1.0 % LAB HEMETOLOGY METHOD 08/20/2024 10:52 AM [facility] NRBC Absolute 0.00 <0.10 K/mcL LAB HEMETOLOGY METHOD 08/20/2024 10:52 AM [facility] Blood Venous blood specimen / Unknown Venipuncture / Unknown 08/20/2024 7:39 AM EST 08/20/2024 10:36 AM EST us Prince Le MD LAB BLOOD ORDERABLES Final Resul t [facility] ([facility]) [facility] [address] [place] [address], documented in this encounter Visit Diagnoses Diagnosis Type 2 diabetes mellitus without complications (CMS/HCC V24, CMS/HCC V28) documented in this encounter Care Teams Dumb Waiter Operator Relationship Specialty Start Date End Date Tram Álvarez MD 2 [facility] , [address] [facility] Physician Associ D/B/A: [facility] JAS Duque PCP - General Internal Medicine 03/30/18 documented as of this encounter
--- OUTSIDE RECORDS SUMMARY | 2025-03-09 13:13 | XMS_ITS | Encounter Summary ---
Author Organization [facility] Address [address] [place] [address] Care Team Providers Care Cooling Room Attendant Name Role Phone Tram Álvarez MD Primary Care Provider [phone] Encounter Details Date Type Department Care Team (Late st Contact Info) Description 09/02/2024 Lab Requisition [facility] - Main Lab [address] [place] [address] Prince Le MD 38 [facility] 204 [place], [address] Type 2 diabetes mellitus without complications [...] Resul t [facility] [address] [place] [address], * (ABNORMAL) Comprehensive metabolic panel (09/03/2024 6:35 [...] Resul t [facility] [address] [place] [address], * (ABNORMAL) Complete blood count (09/03/2024 6:35 [...] BLOOD ORDERABLES Final Resul t [facility] ([facility]) [facility] [address] [place] [address], documented in this encounter Visit Diagnoses Diagnosis Type 2 diabetes mellitus without complications (CMS/HCC V24, CMS/HCC V28) documented in this encounter Care Teams Cooling Room Attendant Relationship Specialty Start Date End Date Tram Álvarez MD 2 [facility] , [address] [facility] Physician Associ D/B/A: [facility] JAS Duque PCP - General Internal Medicine 03/30/18 documented as of this encounter
--- OUTSIDE RECORDS SUMMARY | 2025-03-09 13:13 | XMS_ITS | Encounter Summary ---
Author Organization [facility] Address [address] [place] [address] Care Team Providers Care Agile Business Analyst Name Role Phone Tram Álvarez MD Primary Care Provider [phone] Encounter Details Date Type Department Care Team (Late st Contact Info) Description 10/14/[address] [facility] - Main Lab 299 [facility] [place] [address] Prince Le MD 38 [facility] 204 [place], [address] Type 2 diabetes mellitus without [...] V28) documented in this encounter Care Teams Agile Business Analyst Relationship Specialty Start Date End Date Tram Álvarez MD [address] [place] [address] , [address] [facility] Physician Associ D/B/A: [facility] [place], [place] PCP - General Internal Medicine 03/30/18 documented as of this encounter
--- OUTSIDE RECORDS SUMMARY | 2025-03-09 13:13 | XMS_ITS | Encounter Summary ---
Author Organization [facility] Address [address] [place] [address] Care Team Providers Care Weft Straightener Name Role Phone Tram Álvarez MD Primary Care Provider [phone] Encounter Details Date Type Department Care Team (Late st Contact Info) Description 09/09/2024 Lab Requisition [facility] - Main Lab 299 [facility] [place] [address] Prince Le MD 38 [facility] 204 [place], [address] Type 2 diabetes mellitus without complications [...] V28) documented in this encounter Care Teams Weft Straightener Relationship Specialty Start Date End Date Tram Álvarez MD [address] [place] [address] , [address] [facility] Physician Associ D/B/A: [facility] [place], [place] PCP - General Internal Medicine 03/30/18 documented as of this encounter
--- OUTSIDE RECORDS SUMMARY | 2025-03-09 13:13 | XMS_ITS | Encounter Summary ---
Author Organization [facility] Address [address] [place] [address] Care Team Providers Care Residential Program Director Name Role Phone Tram Álvarez MD Primary Care Provider [phone] Encounter Details Date Type Department Care Team (Late st Contact Info) Description 02/24/2025 Lab Requisition [facility] - Main Lab 299 [facility] [place] [address] Preeti Lujan MD [address] [phone] Essential (primary) hypertension Social History Tobacco Use [...] LAB CHEMISTRY METHOD 02/24/2025 9:39 AM EDT [facility] Potassium 6.0(H) 3.5 - 5.5 mmol/L LAB CHEMISTRY METHOD 02/24/2025 9:39 AM EDT [facility] Chloride 110 96 - 110 mmol/L LAB CHEMISTRY METHOD 02/24/2025 9:39 AM [facility] CO2 27 21 - 32 mmol/L LAB CHEMISTRY METHOD 02/24/2025 9:39 AM [facility] Anion Gap 4 3 - 11 LAB CHEMISTRY METHOD 02/24/2025 9:39 AM [facility] Glucose 117(H) 70 - 100 mg/dL LAB CHEMISTRY METHOD 02/24/2025 9:39 AM [facility] BUN 27(H) 5 - 25 mg/dL LAB CHEMISTRY METHOD 02/24/2025 9:39 AM [facility] Creatinine 0.84 0.70 - 1.30 mg/dL LAB CHEMISTRY METHOD 02/24/2025 9:39 AM [facility] eGFR 94 >=60 mL/min/1. 73m2 LAB CHEMISTRY METHOD 02/24/2025 9:39 AM [facility] Comment:Calculation based on the Chronic Kidney Disease Epidemiology Collaboration (CKD-EPI) equation refit without adjustment for race. BUN/Creatinine Ratio 32.1 LAB CHEMISTRY METHOD 02/24/2025 9:39 AM [facility] Calcium 9.4 8.5 - 10.5 mg/dL LAB CHEMISTRY METHOD 02/24/2025 9:39 AM [facility] Blood Venous blood specimen / Unknown Venipuncture / Unknown 02/24/2025 6:34 AM EDT 02/24/2025 8:31 AM EDT us Preeti Lujan MD LAB BLOOD ORDERABLES Fin al Result [facility] [address] [place] [address], * (ABNORMAL) Complete blood count (02/24/2025 6:34 AM EDT) WBC 7.9 4.8 - 10.8 K/mcL LAB HEMETOLOGY METHOD 02/24/2025 9:35 AM [facility] RBC 3.90(L) 4.50 - 5.50 M/mcL LAB HEMETOLOGY METHOD 02/24/2025 9:35 AM [facility] Hemoglobin 11.0(L) 13.5 - 17.5 g/dL LAB HEMETOLOGY METHOD 02/24/2025 9:35 AM [facility] Hematocrit 36.9(L) 42.0 - 54.0 % LAB HEMETOLOGY METHOD 02/24/2025 9:35 AM [facility] MCV 95.3 79.0 - 98.0 FL LAB HEMETOLOGY METHOD 02/24/2025 9:35 AM [facility] MCH 28.4 27.0 - 32.0 pcg LAB HEMETOLOGY METHOD 02/24/2025 9:35 AM [facility] MCHC 29.8(L) 32.0 - 37.0 g/dL LAB HEMETOLOGY METHOD 02/24/2025 9:35 AM [facility] RDW 17.6(H) 11.0 - 15.0 % LAB HEMETOLOGY METHOD 02/24/2025 9:35 AM [facility] Platelets 287 130 - 400 K/mcL LAB HEMETOLOGY METHOD 02/24/2025 9:35 AM [facility] MPV 12.9(H) 7.0 - 11.0 FL LAB HEMETOLOGY METHOD 02/24/2025 9:35 AM [facility] NRBC 0.0 <1.0 % LAB HEMETOLOGY METHOD 02/24/2025 9:35 AM [facility] NRBC Absolute 0.00 <0.10 K/mcL LAB HEMETOLOGY METHOD 02/24/2025 9:35 AM EDT [facility] Blood Venous blood specimen / Unknown Venipuncture / Unknown 02/24/2025 6:34 AM EDT 02/24/2025 8:31 AM EDT us Preeti Lujan MD LAB BLOOD ORDERABLES Fin al Result [facility] [address] [place] [address], documented in this encounter Visit Diagnoses Diagnosis Essential (primary) hypertension Unspecified essential hypertension documented in this encounter Care Teams Residential Program Director Relationship Specialty Start Date End Date Tram Álvarez MD 2 [facility] , [address] Physician Associ D/B/A: [facility] [place], [place] PCP - General Internal Medicine 03/30/18 documented as of this encounter
--- OUTSIDE RECORDS SUMMARY | 2025-03-09 13:14 | XMS_ITS | Clinical Summary ---
Author Organization [employer] [facility] Address [address] [place] [address] Care Team Providers Care Small Machine Bindery Operator Name Role Phone Unavailable Primary Care [...] Description 03/18/2025 9:00 AM EDT Office Visit [facility] [address] [place] [address] Angeles Swartz MD [address] [place], [place] [phone] Health Maintenance Due Date Last Done Comments [...] patient's age to complete this topic Insurance [facility] SENIOR LIVING OPTIONS (O D-SNP) JIM DIAZ [id number]
--- OUTSIDE RECORDS SUMMARY | 2025-03-09 13:14 | XMS_ITS | Encounter Summary ---
Author Organization [facility] Address [address] [place] [address] Care Team Providers Care Lead Systems Engineer Name Role Phone Tram Álvarez MD Primary Care Provider [phone] Encounter Details Date Type Department Care Team (Late st Contact Info) Description 07/29/[address] [facility] - Main Lab 299 [place] [address] Prince Le MD 38 [facility] 204 [place], [address] Type 2 diabetes mellitus without complications [...] Resul t [facility] [address] [place] [address], * (ABNORMAL) Comprehensive metabolic panel (07/30/2024 7:30 [...] Resul t [facility] [address] [place] [address], * (ABNORMAL) Complete blood count (07/30/2024 7:30 AM EST) WBC 8.9 4.8 - 10.8 K/mcL LAB HEMETOLOGY METHOD 07/30/2024 9:55 AM EST [facility] RBC 4.30(L) 4.50 - 5.50 [...] 9:55 AM [facility] Blood Venous blood specimen / Unknown Venipuncture / Unknown 07/30/2024 7:30 AM EST 07/30/2024 9:39 AM EST us Prince Le MD LAB BLOOD ORDERABLES Final [facility]ul t [facility] [address] [place] [address], documented in this encounter Visit Diagnoses Diagnosis Type 2 diabetes mellitus without complications (CMS/HCC V24, CMS/HCC V28) documented in this encounter Care Teams Lead Systems Engineer Relationship Specialty Start Date End Date Tram Álvarez MD 2 [facility] , [address] [facility] Physician Associ D/B/A: [facility] JAS Duque PCP - General Internal Medicine 03/30/18 documented as of this encounter
--- OUTSIDE RECORDS SUMMARY | 2025-03-09 13:14 | XMS_ITS | Encounter Summary ---
Author Organization [facility] Address [address] [place] [address] Care Team Providers Care Automatic Pinsetter Mechanic Name Role Phone Tram Álvarez MD Primary Care Provider [phone] Encounter Details Date Type Department Care Team (Late st Contact Info) Description 10/21/2024 Lab Requisition [facility] - Main Lab [address] [facility] [place] [address] Prince Le MD 38 [facility] 204 [place], [address] Type 2 diabetes mellitus without complications [...] V28) documented in this encounter Care Teams Automatic Pinsetter Mechanic Relationship Specialty Start Date End Date Tram Álvarez MD [address] [place] [address] , [address] [facility] Physician Associ D/B/A: [facility] [place], [place] PCP - General Internal Medicine 03/30/18 documented as of this encounter
--- OUTSIDE RECORDS SUMMARY | 2025-03-09 13:14 | XMS_ITS | Encounter Summary ---
Author Organization [facility] Address [address] [place] [address] Care Team Providers Care Matrix Repairer Name Role Phone Tram Álvarez MD Primary Care Provider [phone] Encounter Details Date Type Department Care Team (Late st Contact Info) Description 05/21/[address] [facility] - Main Lab [address] [place] [address] Prince Le MD 38 [facility] 204 [place], [address] Essential (primary) hypertension Social History Tobacco [...] LAB CHEMISTRY METHOD 05/24/2024 9:02 AM EST [facility] Potassium 4.2 3.5 - 5.5 mmol/L LAB CHEMISTRY METHOD 05/24/2024 9:02 AM EST [facility] Chloride 109 96 - 110 mmol/L LAB CHEMISTRY METHOD 05/24/2024 9:02 AM [facility] CO2 28 21 - 32 mmol/L LAB CHEMISTRY METHOD 05/24/2024 9:02 AM [facility] Anion Gap 5 3 - 11 LAB CHEMISTRY METHOD 05/24/2024 9:02 AM [facility] Glucose 129(H) 70 - 100 mg/dL LAB CHEMISTRY METHOD 05/24/2024 9:02 AM [facility] BUN 38(H) 5 - 25 mg/dL LAB CHEMISTRY METHOD 05/24/2024 9:02 AM [facility] Creatinine 1.33(H) 0.70 - 1.30 mg/dL LAB CHEMISTRY METHOD 05/24/2024 9:02 AM [facility] eGFR 58(L) >=60 mL/min/1. 73m2 LAB CHEMISTRY METHOD 05/24/2024 9:02 AM [facility] Comment:Calculation based on the Chronic Kidney Disease Epidemiology Collaboration (CKD-EPI) equation refit without adjustment for race. BUN/Creatinine Ratio 28.6 LAB CHEMISTRY METHOD 05/24/2024 9:02 AM [facility] Calcium 9.2 8.5 - 10.5 mg/dL LAB CHEMISTRY METHOD 05/24/2024 9:02 AM [facility] Blood Venous blood specimen / Unknown Venipuncture / Unknown 05/24/2024 6:00 AM EST 05/24/2024 7:45 AM EST us Prince Le MD LAB BLOOD ORDERABLES Final Resul t [facility] [address] [place] [address], * (ABNORMAL) Complete blood count (05/24/2024 6:00 AM EST) WBC 9.3 4.8 - 10.8 K/mcL LAB HEMETOLOGY METHOD 05/24/2024 9:03 AM [facility] RBC 4.90 4.50 - 5.50 M/mcL LAB HEMETOLOGY METHOD 05/24/2024 9:03 AM [facility] Hemoglobin 13.6 13.5 - 17.5 g/dL LAB HEMETOLOGY METHOD 05/24/2024 9:03 AM [facility] Hematocrit 43.1 42.0 - 54.0 % LAB HEMETOLOGY METHOD 05/24/2024 9:03 AM [facility] MCV 87.4 79.0 - 98.0 FL LAB HEMETOLOGY METHOD 05/24/2024 9:03 AM [facility] MCH 27.6 27.0 - 32.0 pcg LAB HEMETOLOGY METHOD 05/24/2024 9:03 AM [facility] MCHC 31.6(L) 32.0 - 37.0 g/dL LAB HEMETOLOGY METHOD 05/24/2024 9:03 AM [facility] RDW 16.4(H) 11.0 - 15.0 % LAB HEMETOLOGY METHOD 05/24/2024 9:03 AM [facility] Platelets 249 130 - 400 K/mcL LAB HEMETOLOGY METHOD 05/24/2024 9:03 AM [facility] MPV 13.1(H) 7.0 - 11.0 FL LAB HEMETOLOGY METHOD 05/24/2024 9:03 AM [facility] NRBC 0.0 <1.0 % LAB HEMETOLOGY METHOD 05/24/2024 9:03 AM [facility] NRBC Absolute 0.00 <0.10 K/mcL LAB HEMETOLOGY METHOD 05/24/2024 9:03 AM [facility] Blood Venous blood specimen / Unknown Venipuncture / Unknown 05/24/2024 6:00 AM EST 05/24/2024 7:45 AM EST us Prince Le MD LAB BLOOD ORDERABLES Final [facility]ul t [facility] [address] [place] [address], [place] [phone] documented in this encounter Visit Diagnoses Diagnosis Essential (primary) hypertension Unspecified essential hypertension documented in this encounter Care Teams Matrix Repairer Relationship Specialty Start Date End Date Tram Álvarez MD 2 [facility] , [address] [place] [address] Physician Associ D/B/A: [facility] JAS Duque PCP - General Internal Medicine 03/30/18 documented as of this encounter
--- OUTSIDE RECORDS SUMMARY | 2025-03-09 13:14 | XMS_ITS | Encounter Summary ---
Author Organization [facility] Address [address] [place] [address] Care Team Providers Care Heavy Equipment Sales Manager Name Role Phone Tram Álvarez MD Primary Care Provider [phone] Encounter Details Date Type Department Care Team (Late st Contact Info) Description 09/16/2024 Lab Requisition [facility] - Main Lab [address] [place] [address] Prince Le MD 38 [facility] 204 [place], [address] Type 2 diabetes mellitus without complications [...] mg/dL LAB CHEMISTRY METHOD 09/17/2024 11:32 AM [facility] Blood Venous blood specimen / Unknown Venipuncture / Unknown 09/17/2024 8:06 AM EDT 09/17/2024 10:22 AM EDT us Prince Le MD LAB BLOOD ORDERABLES Final Resul t [facility] [address] [place] [address], [place] [phone] * (ABNORMAL) Comprehensive metabolic panel (09/17/2024 8:06 AM EDT) Sodium 139 133 - 145 mmol/L LAB CHEMISTRY METHOD 09/17/2024 11:27 AM [facility] Potassium 4.6 3.5 - 5.5 mmol/L LAB CHEMISTRY METHOD 09/17/2024 11:27 AM [facility] Chloride 103 96 - 110 mmol/L LAB CHEMISTRY METHOD 09/17/2024 11:27 AM [facility] CO2 30 21 - 32 mmol/L LAB CHEMISTRY METHOD 09/17/2024 11:27 AM [facility] Anion Gap 6 3 - 11 LAB CHEMISTRY METHOD 09/17/2024 11:27 AM [facility] Glucose 93 70 - 100 mg/dL LAB CHEMISTRY METHOD 09/17/2024 11:27 AM [facility] BUN 21 5 - 25 mg/dL LAB CHEMISTRY METHOD 09/17/2024 11:27 AM [facility] Creatinine 0.97 0.70 - 1.30 mg/dL LAB CHEMISTRY METHOD 09/17/2024 11:27 AM [facility] eGFR 85 >=60 mL/min/1. 73m2 LAB CHEMISTRY METHOD 09/17/2024 11:27 AM [facility] Comment:Calculation based on the Chronic Kidney Disease Epidemiology Collaboration (CKD-EPI) equation refit without adjustment for race. BUN/Creatinine Ratio 21.6 LAB CHEMISTRY METHOD 09/17/2024 11:27 AM [facility] Calcium 9.0 8.5 - 10.5 mg/dL LAB CHEMISTRY METHOD 09/17/2024 11:27 AM [facility] AST (SGOT) 20 10 - 42 unit/L LAB CHEMISTRY METHOD 09/17/2024 11:27 AM [facility] ALT (SGPT) 19 10 - 60 unit/L LAB CHEMISTRY METHOD 09/17/2024 11:27 AM [facility] Alkaline Phosphatase 67 42 - 121 unit/L LAB CHEMISTRY METHOD 09/17/2024 11:27 AM [facility] Total Protein 6.1 6.0 - 8.0 g/dL LAB CHEMISTRY METHOD 09/17/2024 11:27 AM [facility] Albumin 2.8(L) 3.2 - 5.0 g/dL LAB CHEMISTRY METHOD 09/17/2024 11:27 AM [facility] Total Bilirubin 0.4 0.0 - 1.4 mg/dL LAB CHEMISTRY METHOD 09/17/2024 11:27 AM [facility] Blood Venous blood specimen / Unknown Venipuncture / Unknown 09/17/2024 8:06 AM EDT 09/17/2024 10:22 AM EDT us Prince Le MD LAB BLOOD ORDERABLES Final Resul t [facility] [address] [place] [address], * (ABNORMAL) Complete blood count (09/17/2024 8:06 AM EDT) WBC 9.2 4.8 - 10.8 K/mcL LAB HEMETOLOGY METHOD 09/17/2024 10:35 AM [facility] RBC 3.80(L) 4.50 - 5.50 M/mcL LAB HEMETOLOGY METHOD 09/17/2024 10:35 AM [facility] Hemoglobin 11.3(L) 13.5 - 17.5 g/dL LAB HEMETOLOGY METHOD 09/17/2024 10:35 AM [facility] Hematocrit 35.1(L) 42.0 - 54.0 % LAB HEMETOLOGY METHOD 09/17/2024 10:35 AM [facility] MCV 93.6 79.0 - 98.0 FL LAB HEMETOLOGY METHOD 09/17/2024 10:35 AM [facility] MCH 30.1 27.0 - 32.0 pcg LAB HEMETOLOGY METHOD 09/17/2024 10:35 AM [facility] MCHC 32.2 32.0 - 37.0 g/dL LAB HEMETOLOGY METHOD 09/17/2024 10:35 AM [facility] RDW 17.5(H) 11.0 - 15.0 % LAB HEMETOLOGY METHOD 09/17/2024 10:35 AM [facility] Platelets 352 130 - 400 K/mcL LAB HEMETOLOGY METHOD 09/17/2024 10:35 AM [facility] MPV 11.5(H) 7.0 - 11.0 FL LAB HEMETOLOGY METHOD 09/17/2024 10:35 AM [facility] NRBC 0.0 <1.0 % LAB HEMETOLOGY METHOD 09/17/2024 10:35 AM [facility] NRBC Absolute 0.00 <0.10 K/mcL LAB HEMETOLOGY METHOD 09/17/2024 10:35 AM [facility] Blood Venous blood specimen / Unknown Venipuncture / Unknown 09/17/2024 8:06 AM EDT 09/17/2024 10:22 AM EDT us Prince Le MD LAB BLOOD ORDERABLES Final Resul t [facility] ([facility]) [facility] [address] [place] [address], documented in this encounter Visit Diagnoses Diagnosis Type 2 diabetes mellitus without complications (CMS/HCC V24, CMS/HCC V28) documented in this encounter Care Teams Heavy Equipment Sales Manager Relationship Specialty Start Date End Date Tram Álvarez MD 2 [facility] , [address] Physician Associ D/B/A: [facility] [place], [place] PCP - General Internal Medicine 03/30/18 documented as of this encounter
--- OUTSIDE RECORDS SUMMARY | 2025-03-09 13:14 | XMS_ITS | Encounter Summary ---
Author Organization [facility] Address [address] [place] [address] Care Team Providers Care Floor Covering Layer Name Role Phone Tram Álvarez MD Primary Care Provider [phone] Encounter Details Date Type Department Care Team (Late st Contact Info) Description 11/18/2024 Lab Requisition [facility] - Main Lab 299 [facility] [address] Preeti Lujan MD [address] [phone] Chronic kidney disease, stage 3 unspecified (CMS/HCC [...] LAB CHEMISTRY METHOD 11/18/2024 10:12 AM EDT [facility]) [facility] Potassium 4.6 3.5 - 5.5 mmol/L LAB CHEMISTRY METHOD 11/18/2024 10:12 AM [facility] Chloride 112(H) 96 - 110 mmol/L LAB CHEMISTRY METHOD 11/18/2024 10:12 AM [facility] CO2 25 21 - 32 mmol/L LAB CHEMISTRY METHOD 11/18/2024 10:12 AM [facility] Anion Gap 6 3 - 11 LAB CHEMISTRY METHOD 11/18/2024 10:12 AM [facility] Glucose 105(H) 70 - 100 mg/dL LAB CHEMISTRY METHOD 11/18/2024 10:12 AM [facility] BUN 26(H) 5 - 25 mg/dL LAB CHEMISTRY METHOD 11/18/2024 10:12 AM [facility] Creatinine 0.63(L) 0.70 - 1.30 mg/dL LAB CHEMISTRY METHOD 11/18/2024 10:12 AM [facility] eGFR 103 >=60 mL/min/1. 73m2 LAB CHEMISTRY METHOD 11/18/2024 10:12 AM [facility] Comment:Calculation based on the Chronic Kidney Disease Epidemiology Collaboration (CKD-EPI) equation refit without adjustment for race. BUN/Creatinine Ratio 41.3 LAB CHEMISTRY METHOD 11/18/2024 10:12 AM [facility] Calcium 8.8 8.5 - 10.5 mg/dL LAB CHEMISTRY METHOD 11/18/2024 10:12 AM [facility] Blood Venous blood specimen / Unknown Venipuncture / Unknown 11/18/2024 6:05 AM EDT 11/18/2024 9:23 AM EDT us Preeti Lujan MD LAB BLOOD ORDERABLES Fin al Result [facility] [address] [place] [address], documented in this encounter Visit Diagnoses Diagnosis Chronic kidney disease, stage 3 unspecified (CMS/[facility] V24, [facility] V28) Spinal stenosis, lumbar region without neurogenic claudication documented in this encounter Care Teams Floor Covering Layer Relationship Specialty Start Date End Date Tram Álvarez MD 2 [facility] , [address] [place] [address] Physician Associ D/B/A: [facility] JAS Duque PCP - General Internal Medicine 03/30/18 documented as of this encounter
--- OUTSIDE RECORDS SUMMARY | 2025-03-09 13:14 | XMS_ITS | Encounter Summary ---
Author Organization [facility] Address [address] [place] [address] Care Team Providers Care Store Administrator Name Role Phone Tram Álvarez MD Primary Care Provider [phone] Encounter Details Date Type Department Care Team (Late st Contact Info) Description 05/28/2024 Lab Requisition [facility] - Main Lab [address] [place] [address] Prince Le MD 38 [facility] 204 [place], [address] Essential (primary) hypertension Social History Tobacco [...] LAB CHEMISTRY METHOD 05/31/2024 11:37 AM EST [facility] LAB Potassium 4.5 3.5 - 5.5 mmol/L LAB CHEMISTRY METHOD 05/31/2024 11:37 AM EST [facility] LAB Chloride 108 96 - 110 mmol/L LAB CHEMISTRY METHOD 05/31/2024 11:37 AM [facility] LAB CO2 28 21 - 32 mmol/L LAB CHEMISTRY METHOD 05/31/2024 11:37 AM [facility] LAB Anion Gap 6 3 - 11 LAB CHEMISTRY METHOD 05/31/2024 11:37 AM [facility] LAB Glucose 104(H) 70 - 100 mg/dL LAB CHEMISTRY METHOD 05/31/2024 11:37 AM [facility] LAB BUN 25 5 - 25 mg/dL LAB CHEMISTRY METHOD 05/31/2024 11:37 AM [facility] LAB Creatinine 1.15 0.70 - 1.30 mg/dL LAB CHEMISTRY METHOD 05/31/2024 11:37 AM [facility] LAB eGFR 69 >=60 mL/min/1. 73m2 LAB CHEMISTRY METHOD 05/31/2024 11:37 AM [facility] LAB Comment:Calculation based on the Chronic Kidney Disease Epidemiology Collaboration (CKD-EPI) equation refit without adjustment for race. BUN/Creatinine Ratio 21.7 LAB CHEMISTRY METHOD 05/31/2024 11:37 AM [facility] LAB Calcium 9.2 8.5 - 10.5 mg/dL LAB CHEMISTRY METHOD 05/31/2024 11:37 AM [facility] LAB Blood Venous blood specimen / Unknown Venipuncture / Unknown 05/31/2024 7:20 AM EST 05/31/2024 10:13 AM EST us Prince Le MD LAB BLOOD ORDERABLES Final Resul t [facility] LAB [address] [place] [address], * (ABNORMAL) Complete blood count (05/31/2024 7:20 AM EST) WBC 8.8 4.8 - 10.8 K/mcL LAB HEMETOLOGY METHOD 05/31/2024 10:39 AM [facility] LAB RBC 5.10 4.50 - 5.50 M/mcL LAB HEMETOLOGY METHOD 05/31/2024 10:39 AM [facility] LAB Hemoglobin 14.2 13.5 - 17.5 g/dL LAB HEMETOLOGY METHOD 05/31/2024 10:39 AM [facility] LAB Hematocrit 44.7 42.0 - 54.0 % LAB HEMETOLOGY METHOD 05/31/2024 10:39 AM [facility] LAB MCV 87.0 79.0 - 98.0 FL LAB HEMETOLOGY METHOD 05/31/2024 10:39 AM [facility] LAB MCH 27.6 27.0 - 32.0 pcg LAB HEMETOLOGY METHOD 05/31/2024 10:39 AM [facility] LAB MCHC 31.8(L) 32.0 - 37.0 g/dL LAB HEMETOLOGY METHOD 05/31/2024 10:39 AM [facility] LAB RDW 16.5(H) 11.0 - 15.0 % LAB HEMETOLOGY METHOD 05/31/2024 10:39 AM [facility] LAB Platelets 242 130 - 400 K/mcL LAB HEMETOLOGY METHOD 05/31/2024 10:39 AM [facility] LAB MPV 12.5(H) 7.0 - 11.0 FL LAB HEMETOLOGY METHOD 05/31/2024 10:39 AM [facility] LAB NRBC 0.0 <1.0 % LAB HEMETOLOGY METHOD 05/31/2024 10:39 AM [facility] LAB NRBC Absolute 0.00 <0.10 K/mcL LAB HEMETOLOGY METHOD 05/31/2024 10:39 AM [facility] LAB Blood Venous blood specimen / Unknown Venipuncture / Unknown 05/31/2024 7:20 AM EST 05/31/2024 10:16 AM EST us Prince Le MD LAB BLOOD ORDERABLES Final Resul t [facility] LAB [address] [place] [address], [place] [phone] documented in this encounter Visit Diagnoses Diagnosis Essential (primary) hypertension Unspecified essential hypertension documented in this encounter Care Teams Store Administrator Relationship Specialty Start Date End Date Tram Álvarez MD 2 [facility] , [address] [facility] Physician Associ D/B/A: [facility] [place], [place] PCP - General Internal Medicine 03/30/18 documented as of this encounter
--- OUTSIDE RECORDS SUMMARY | 2025-03-09 13:14 | XMS_ITS | Encounter Summary ---
Author Organization [facility] Address [address] [place] [address] Care Team Providers Care Melter Supervisor Name Role Phone Tram Álvarez MD Primary Care Provider [phone] Encounter Details Date Type Department Care Team (Late st Contact Info) Description 11/09/2024 Lab Requisition [facility] - Main Lab 299 [facility] [place] [address] Prince Le MD 38 [facility] 204 [place], [address] Hyperlipidemia, unspecified Social History Tobacco Use [...] unspecified documented in this encounter Care Teams Melter Supervisor Relationship Specialty Start Date End Date Tram Álvarez MD [address] [place] [address] , [address] [facility] Physician Associ D/B/A: [facility] [place], [place] PCP - General Internal Medicine 03/30/18 documented as of this encounter
--- OUTSIDE RECORDS SUMMARY | 2025-03-09 13:14 | XMS_ITS | Encounter Summary ---
Author Organization [facility] Address [address] [place] [address] Care Team Providers Care Component Overhaul Operator Name Role Phone Tram Álvarez MD Primary Care Provider [phone] Encounter Details Date Type Department Care Team (Late st Contact Info) Description 11/05/2024 Lab Requisition [facility] - Main Lab 299 [facility] [place] [address] Preeti Lujan MD [address] [id number] Pneumonia, unspecified organism Social History Tobacco Use [...] LAB CHEMISTRY METHOD 11/05/2024 11:23 AM EDT [facility] LAB Potassium 3.8 3.5 - 5.5 mmol/L LAB CHEMISTRY METHOD 11/05/2024 11:23 AM T [facility] LAB Chloride 112(H) 96 - 110 mmol/L LAB CHEMISTRY METHOD 11/05/2024 11:23 AM T [facility] LAB CO2 19(L) 21 - 32 mmol/L LAB CHEMISTRY METHOD 11/05/2024 11:23 AM [facility] LAB Anion Gap 11 3 - 11 LAB CHEMISTRY METHOD 11/05/2024 11:23 AM [facility] LAB Glucose 121(H) 70 - 100 mg/dL LAB CHEMISTRY METHOD 11/05/2024 11:23 AM [facility] LAB BUN 22 5 - 25 mg/dL LAB CHEMISTRY METHOD 11/05/2024 11:23 AM [facility] LAB Creatinine 0.58(L) 0.70 - 1.30 mg/dL LAB CHEMISTRY METHOD 11/05/2024 11:23 AM [facility] LAB eGFR 106 >=60 mL/min/1. 73m2 LAB CHEMISTRY METHOD 11/05/2024 11:23 AM [facility] LAB Comment:Calculation based on the Chronic Kidney Disease Epidemiology Collaboration (CKD-EPI) equation refit without adjustment for race. BUN/Creatinine Ratio 37.9 LAB CHEMISTRY METHOD 11/05/2024 11:23 AM [facility] LAB Calcium 9.3 8.5 - 10.5 mg/dL LAB CHEMISTRY METHOD 11/05/2024 11:23 AM [facility] LAB Blood Venous blood specimen / Unknown Venipuncture / Unknown 11/05/2024 8:07 AM EDT 11/05/2024 9:58 AM EDT us Preeti Lujan MD LAB BLOOD ORDERABLES Fin al Result [facility] LAB [address] [place] [address], documented in this encounter Visit Diagnoses Diagnosis Pneumonia, unspecified organism documented in this encounter Care Teams Component Overhaul Operator Relationship Specialty Start Date End Date Tram Álvarez MD 2 [facility] , [address] Physician Associ D/B/A: [facility] JAS Duque PCP - General Internal Medicine 03/30/18 documented as of this encounter
--- OUTSIDE RECORDS SUMMARY | 2025-03-09 13:14 | XMS_ITS | Encounter Summary ---
Author Organization [facility] Address [address] [place] [address] Care Team Providers Care Gang Worker Name Role Phone Tram Álvarez MD Primary Care Provider [phone] Encounter Details Date Type Department Care Team (Late st Contact Info) Description 10/22/2024 Lab Requisition [facility] - Main Lab [address] [place] [address] Preeti Lujan MD [address] [id number] Type 2 diabetes mellitus without complications (CMS/HCC [...] 2 diabetes mellitus without complications (CMS/HCC V24, CMS/[facility] V28) documented in this encounter Results * Hemoglobin A1c (10/22/2024 6:43 AM EDT) Hemoglobin A1C 5.5 <6.5 % LAB CHEMISTRY METHOD 10/22/2024 2:03 PM EDT [facility] Mean Bld Glu Estim. 111 mg/dL LAB CHEMISTRY METHOD 10/22/2024 2:03 PM EDT [facility] Blood Venous blood specimen / Unknown Venipuncture / Unknown 10/22/2024 6:43 AM EDT 10/22/2024 9:05 AM EDT us Preeti Lujan MD LAB BLOOD ORDERABLES Fin al Result [facility] ([facility]) [facility] LAB [address] [place] [address], documented in this encounter Visit Diagnoses Diagnosis Type 2 diabetes mellitus without complications (CMS/HCC V24, CMS/HCC V28) documented in this encounter Care Teams Gang Worker Relationship Specialty Start Date End Date Tram Álvarez MD 2 [facility] , [address] Physician Associ D/B/A: [facility] JAS Duque PCP - General Internal Medicine 03/30/18 documented as of this encounter
--- OUTSIDE RECORDS SUMMARY | 2025-03-09 13:14 | XMS_ITS | Encounter Summary ---
Author Organization [facility] Address [address] [place] [address] Care Team Providers Care Remote Sensing Program Manager Name Role Phone Tram Álvarez MD Primary Care Provider [phone] Encounter Details Date Type Department Care Team (Late st Contact Info) Description 11/11/2024 Lab Requisition [facility] - Main Lab [address] [place] [address] Shonda Brenner MD [address] [place] [address] Unspecified abdominal pain Social History Tobacco Use [...] reflex microscopic (11/11/2024 12:00 AM EDT) Specific Earling Urine 1.014 1.003 - 1.030 LAB URINALYSIS - AUTOMATED METHOD 11/11/2024 11:33 AM EDT [facility] LAB pH, Urine 7.0 5.0 - 8.0 pH LAB URINALYSIS - AUTOMATED METHOD 11/11/2024 11:33 AM [facility] LAB Leukocytes, Urine Large(A) Negative LAB URINALYSIS - AUTOMATED METHOD 11/11/2024 11:33 AM [facility] Nitrite, Urine Negative Negative LAB URINALYSIS - AUTOMATED METHOD 11/11/2024 11:33 AM [facility] Protein, Urine Trace <=Trace mg/dL LAB URINALYSIS - AUTOMATED METHOD 11/11/2024 11:33 AM [facility] Glucose, Urine Negative Negative mg/dL LAB URINALYSIS - AUTOMATED METHOD 11/11/2024 11:33 AM [facility] Ketones, Urine Negative Negative mg/dL LAB URINALYSIS - AUTOMATED METHOD 11/11/2024 11:33 AM [facility] Urobilinogen, Urine 0.2 0.2 - 1.0 mg/dL LAB URINALYSIS - AUTOMATED METHOD 11/11/2024 11:33 AM [facility] Bilirubin, Urine Negative Negative LAB URINALYSIS - AUTOMATED METHOD 11/11/2024 11:33 AM [facility] Blood, Urine Negative Negative LAB URINALYSIS - AUTOMATED METHOD 11/11/2024 11:33 AM [facility] RBC, Urine 3.0 0 - 4 /HPF LAB URINALYSIS - AUTOMATED METHOD 11/11/2024 11:33 AM [facility] WBC, Urine 57.5(H) 0 - 4 /HPF LAB URINALYSIS - AUTOMATED METHOD 11/11/2024 11:33 AM [facility] Squamous Epithelial, Urine >100(H) 0 - 60 /LPF LAB URINALYSIS - AUTOMATED METHOD 11/11/2024 11:33 AM [facility] Bacteria, Urine Negative Negative /HPF LAB URINALYSIS - AUTOMATED METHOD 11/11/2024 11:33 AM EDT [facility] Hyaline Casts, Urine 2.0 0 - 3 /LPF LAB URINALYSIS - AUTOMATED METHOD 11/11/2024 11:33 AM EDT [facility] Urine Urine specimen obtained by clean catch procedure / Unknown Non-blood Collection / Unknown 11/11/2024 11/11/2024 9:44 AM EDT us Shonda Brenner MD LAB URINE ORDERABLES Final Resu lt Performing Organization Address [facility]/ZIP Co de Phone Number [facility] LAB [address] [place] [address], [place] [phone] * Culture urine (11/11/2024 12:00 AM EDT) Culture, Urine <10,000 CFU/mL gram negative bacilli, insignificant count, no further workup 11/12/2024 8:43 AM EDT [facility] Urine Urine specimen obtained by clean catch procedure / Unknown Non-blood Collection / Unknown 11/11/2024 11/11/2024 9:44 AM EDT us Shnoda Brenner MD LAB MICROBIOLOGY - GENERAL ORDE RABLES Final Result Performing Organization Address [facility]/ZIP Co de Phone Number [facility] [address] [place] [address], [place] [phone] documented in this encounter Visit Diagnoses Diagnosis Unspecified abdominal pain documented in this encounter Care Teams Remote Sensing Program Manager Relationship Specialty Start Date End Date Tram Álvarez MD 2 [facility] [address] Physician Associ D/B/A: [facility] JAS Duque PCP - General Internal Medicine 03/30/18 documented as of this encounter
--- OUTSIDE RECORDS SUMMARY | 2025-03-09 13:14 | XMS_ITS | Clinical Summary ---
Author Organization [facility] Address [address] [place] [address] Care Team Providers Care Whiskey Filterer Name Role Phone Tram Royal MD Primary [...] age to complete this topic Care Teams Whiskey Filterer Relationship Specialty Start Date End Date Tram Royal MD 2 [facility] , [address] [facility] Physician Associ D/B/A: [facility] [place] [address] PCP - General Internal Medicine 03/30/18
--- OUTSIDE RECORDS SUMMARY | 2025-03-09 13:14 | XMS_ITS | Encounter Summary ---
Author Organization [facility] Address [address] [place] [address] Care Team Providers Care Ticket Machine Operator Name Role Phone Tram Álvarez MD Primary Care Provider [phone] Encounter Details Date Type Department Care Team (Late st Contact Info) Description 09/30/2024 Lab Requisition [facility] - Main Lab [address] [place] [address] Prince Le MD 38 [facility] 204 [place], [address] Type 2 diabetes mellitus without complications [...] mg/dL LAB CHEMISTRY METHOD 10/01/2024 11:57 AM [facility] LAB Blood Venous blood specimen / Unknown Venipuncture / Unknown 10/01/2024 8:01 AM EDT 10/01/2024 10:24 AM EDT us Prince Le MD LAB BLOOD ORDERABLES Final Resul t [facility] [address] [place] [address], [place] [phone] * (ABNORMAL) Comprehensive metabolic panel (10/01/2024 8:01 AM EDT) Sodium 134 133 - 145 mmol/L LAB CHEMISTRY METHOD 10/01/2024 12:02 PM [facility] Potassium 4.7 3.5 - 5.5 mmol/L LAB CHEMISTRY METHOD 10/01/2024 12:02 PM [facility] Chloride 101 96 - 110 mmol/L LAB CHEMISTRY METHOD 10/01/2024 12:02 PM [facility] CO2 27 21 - 32 mmol/L LAB CHEMISTRY METHOD 10/01/2024 12:02 PM [facility] Anion Gap 6 3 - 11 LAB CHEMISTRY METHOD 10/01/2024 12:02 PM [facility] Glucose 79 70 - 100 mg/dL LAB CHEMISTRY METHOD 10/01/2024 12:02 PM [facility] BUN 40(H) 5 - 25 mg/dL LAB CHEMISTRY METHOD 10/01/2024 12:02 PM [facility] Creatinine 1.55(H) 0.70 - 1.30 mg/dL LAB CHEMISTRY METHOD 10/01/2024 12:02 PM [facility] LAB eGFR 48(L) >=60 mL/min/1. 73m2 LAB CHEMISTRY METHOD 10/01/2024 12:02 PM [facility] Comment:Calculation based on the Chronic Kidney Disease Epidemiology Collaboration (CKD-EPI) equation refit without adjustment for race. BUN/Creatinine Ratio 25.8 LAB CHEMISTRY METHOD 10/01/2024 12:02 PM [facility] Calcium 8.8 8.5 - 10.5 mg/dL LAB CHEMISTRY METHOD 10/01/2024 12:02 PM [facility] AST (SGOT) 63(H) 10 - 42 unit/L LAB CHEMISTRY METHOD 10/01/2024 12:02 PM [facility] ALT (SGPT) 30 10 - 60 unit/L LAB CHEMISTRY METHOD 10/01/2024 12:02 PM [facility] Alkaline Phosphatase 40(L) 42 - 121 unit/L LAB CHEMISTRY METHOD 10/01/2024 12:02 PM [facility] Total Protein 6.0 6.0 - 8.0 g/dL LAB CHEMISTRY METHOD 10/01/2024 12:02 PM [facility] Albumin 2.9(L) 3.2 - 5.0 g/dL LAB CHEMISTRY METHOD 10/01/2024 12:02 PM [facility] Total Bilirubin 0.4 0.0 - 1.4 mg/dL LAB CHEMISTRY METHOD 10/01/2024 12:02 PM [facility] Blood Venous blood specimen / Unknown Venipuncture / Unknown 10/01/2024 8:01 AM EDT 10/01/2024 10:24 AM EDT us Prince Le MD LAB BLOOD ORDERABLES Final Resul t [facility] [address] [place] [address], * (ABNORMAL) Complete blood count (10/01/2024 8:01 AM EDT) WBC 7.3 4.8 - 10.8 K/mcL LAB HEMETOLOGY METHOD 10/01/2024 11:11 AM [facility] RBC 4.00(L) 4.50 - 5.50 M/mcL LAB HEMETOLOGY METHOD 10/01/2024 11:11 AM [facility] Hemoglobin 11.8(L) 13.5 - 17.5 g/dL LAB HEMETOLOGY METHOD 10/01/2024 11:11 AM [facility] Hematocrit 37.0(L) 42.0 - 54.0 % LAB HEMETOLOGY METHOD 10/01/2024 11:11 AM [facility] MCV 93.7 79.0 - 98.0 FL LAB HEMETOLOGY METHOD 10/01/2024 11:11 AM [facility] MCH 29.9 27.0 - 32.0 pcg LAB HEMETOLOGY METHOD 10/01/2024 11:11 AM [facility] MCHC 31.9(L) 32.0 - 37.0 g/dL LAB HEMETOLOGY METHOD 10/01/2024 11:11 AM [facility] RDW 16.4(H) 11.0 - 15.0 % LAB HEMETOLOGY METHOD 10/01/2024 11:11 AM [facility] Platelets 416(H) 130 - 400 K/mcL LAB HEMETOLOGY METHOD 10/01/2024 11:11 AM [facility] MPV 11.3(H) 7.0 - 11.0 FL LAB HEMETOLOGY METHOD 10/01/2024 11:11 AM [facility] NRBC 0.0 <1.0 % LAB HEMETOLOGY METHOD 10/01/2024 11:11 AM [facility] NRBC Absolute 0.00 <0.10 K/mcL LAB HEMETOLOGY METHOD 10/01/2024 11:11 AM [facility] Blood Venous blood specimen / Unknown Venipuncture / Unknown 10/01/2024 8:01 AM EDT 10/01/2024 10:24 AM EDT us Prince Le MD LAB BLOOD ORDERABLES Final Resul t [facility] LAB [address] [place] [address], documented in this encounter Visit Diagnoses Diagnosis Type 2 diabetes mellitus without complications (CMS/HCC V24, CMS/HCC V28) documented in this encounter Care Teams Ticket Machine Operator Relationship Specialty Start Date End Date Tram Álvarez MD 2 [facility] , [address] Physician Associ D/B/A: [facility] [place], [place] PCP - General Internal Medicine 03/30/18 documented as of this encounter
--- OUTSIDE RECORDS SUMMARY | 2025-03-09 13:14 | XMS_ITS | Encounter Summary ---
Author Organization [facility] Address [address] [place] [address] Care Team Providers Care Communications Project Lead Name Role Phone Tram Álvarez MD Primary Care Provider [phone] Encounter Details Date Type Department Care Team (Late st Contact Info) Description 09/23/2024 Lab Requisition [facility] - Main Lab [address] [place] [address] Prince Le MD 38 [facility] [address] [place], [address] Type 2 diabetes mellitus without complications [...] t [facility] [address] [place] [address], [place] [phone] * (ABNORMAL) Comprehensive metabolic panel (09/24/2024 5:45 [...] t [facility] [address] [place] [address], * (ABNORMAL) Complete blood count (09/24/2024 5:45 [...] MD LAB BLOOD ORDERABLES Final [facility]ul t [facility] [address] [place] [address], documented in this encounter Visit Diagnoses Diagnosis Type 2 diabetes mellitus without complications (CMS/HCC V24, CMS/HCC V28) documented in this encounter Care Teams Communications Project Lead Relationship Specialty Start Date End Date Tram Álvarez MD 2 [facility] , [address] Physician Associ D/B/A: [facility] JAS Duque PCP - General Internal Medicine 03/30/18 documented as of this encounter
--- OUTSIDE RECORDS SUMMARY | 2025-03-09 13:14 | XMS_ITS | Encounter Summary ---
Author Organization [facility] Address [address] [place] [address] Care Team Providers Care Crane Ladle Person Name Role Phone Tram Álvarez MD Primary Care Provider [phone] Encounter Details Date Type Department Care Team (Late st Contact Info) Description 11/11/2024 Lab Requisition [facility] - Main Lab [address] [place] [address] Preeti Lujan MD [address] [phone] Chronic kidney disease, unspecified Social History Tobacco [...] LAB CHEMISTRY METHOD 11/11/2024 11:32 AM EDT [facility] Potassium 4.2 3.5 - 5.5 mmol/L LAB CHEMISTRY METHOD 11/11/2024 11:32 AM EDT [facility] Chloride 110 [...] Fin al Result [facility] [address] [place] [address], * (ABNORMAL) Complete blood count (11/11/2024 6:41 [...] LAB HEMETOLOGY METHOD 11/11/2024 10:28 AM EDT [facility] Blood Venous blood specimen / Unknown Venipuncture / Unknown 11/11/2024 6:41 AM EDT 11/11/2024 9:11 AM EDT us Preeti Lujan MD LAB BLOOD ORDERABLES Fin al Result [facility] [address] [place] [address], documented in this encounter Visit Diagnoses Diagnosis Chronic kidney disease, unspecified documented in this encounter Care Teams Crane Ladle Person Relationship Specialty Start Date End Date Tram Álvarez MD 2 [facility] , [address] Physician Associ D/B/A: [facility] [place], [place] PCP - General Internal Medicine 03/30/18 documented as of this encounter
== END 2025-01-27 00:01 | disposition home or self-care (01) ==
LOC: HO.PAT
PROVIDERS: Nurse Practitioner; PCP Internal Medicine; Visit Provider Neurological Surgery
DX: M47.14 Other spondylosis with myelopathy, thoracic region (principal)
CPT/HCPCS: 36415; 80048; 85027

== ENCOUNTER 2025-03-08 09:46 | Outpatient (AMB) | payer OTHER, SELFPAY ==
--- NOTE | 2025-03-08 09:58 | A.OFFVIS_ITS ---
Vital Signs 03/08/25 09:59 Height 5 ft 8 in BMI Reason not done Patient refused/unable BP 128/68 Blood Pressure Location Lt brachial Position Semi Duncan's Pulse 82 Pulse Source Monitor Intake Visit Reasons: NS/ pt '23/Medical Clearance- Spinal Allergies Penicillins (PENICILLINS) Allergy (Severe, Verified 10/22/24 11:54) RASH jay pepper Allergy (Intermediate, Verified 10/22/24 11:54) Rash pepper (genus Capsicum) Adverse Reaction (Intermediate, Verified 10/22/24 11:54) rashes HPI Comments Details: Carlos was requested to be seen in urgent cardiology evaluation for preoperative cardiovascular risk stratification for thoracic spine surgery for thoracic spinal cord compression. He comes to the office in his stretcher in his very limited activity level in his half-way and can not walk due to his spine issues. He had a cervical spine surgery in August this year which she tolerated well. However either time he was noted to have a normal EKGs and did well. Following that he was in the rehab center and in October was then admitted to intensive care unit with acute hypoxemic respiratory failure with sepsis and related to pneumonia. Patient was markedly hemodynamically unstable at that time and require pressor support. Due to that he underwent an echocardiogram which had shown moderately to severely reduced LV ejection fraction at 30-35% with multiple wall motion abnormality concerning for either LAD territory infarct or stress-induced cardiomyopathy. Patient had no further workup or follow-up or cardiac consultation during the hospitalization. Patient EKGs in August which appear to showed normal sinus rhythm with normal EKG. Subsequent EKGs in October showed possible inferior infarct as well as anterolateral infarct by Q-waves. EKGs done today as a preop evaluation shows normal sinus rhythm with incomplete right bundle-branch block with anterolateral infarct as well as possible inferior infarct. Patient has longstanding history of diabetes as well as hypertension which she is treated as per him. Also has hyperlipidemia. However he denies any prior cardiac history of prior myocardial infarction. Troponins done during this hospitalization were within normal limits however they were not repeated. He has never had any ischemic workup done in the past. As mentioned he has pretty significantly reduced exercise activity due to his spinal cord issues. Other risk factors include reported diastolic heart failure as well as chronic kidney disease. Denies any family history of premature coronary artery disease. [facility] Medical History Osteoarthritis Depression Polyneuropathy GERD (gastroesophageal reflux disease) Acute cholecystitis due to biliary calculus Numbness and tingling in right hand Numbness and tingling in left hand Essential hypertension Diabetes mellitus Knee osteoarthritis Mild recurrent major depression Mixed hyperlipidemia Right shoulder pain Right knee pain Left knee pain CKD (chronic kidney disease), stage III Low back pain Multiple falls Syncope DAVINA (acute kidney injury) Obesity due to excess calories Lumbar spondylosis Proteinuria Arthritis Hypertriglyceridemia Hypertension Diabetic polyneuropathy associated with type 2 diabetes mellitus Type 2 diabetes mellitus with other diabetic kidney complication Lumbar stenosis Surgical History Hx of cervical spine surgery Hx of carpal tunnel repair History of cholecystectomy (09/19/23) History of surgery on lower extremity History of total left knee replacement (TKR) S/P evacuation of hematoma Hx of cataract surgery History of lumbar surgery Hx of eye surgery History of back surgery Family History Father Medical history unknown Mother Hypertension Maternal Grandmother Medical history unknown Social History Household Members: None Household Members Other:: self Housing: Assisted Living Facility Housing Other:: currently at [facility] Are you a primary career placement services counselor to a significant other at home: No Do you presently have visiting nurse or other home services: Yes Alcohol intake: former Comment: bed bound Patient Tobacco Use Status: Former Tobacco user Tobacco use type: Cigarette Years Smoked: 25 e-Cigarette/Vaping Use: Never Used Second Hand Smoke Exposure: No Advance Directives Date on File: 05/12/23 service: Yes Current occupational status: disabled Cognitive needs: Yes (walker) Hearing needs: No Vision needs: Yes (reading glasses) Review of Systems Const Reports no additional complaints Eyes Reports no additional complaints Card Reports no additional complaints Physical Exam Vital Signs: Last Vital Signs Pulse 82 03/08/25 09:59 BP 128/68 03/08/25 09:59 Const General: cooperative, comfortable, no acute distress, alert and awake Nutritional Appearance: average body habitus Orientation/consciousness: patient oriented x3 Limitations: other limitations (Comes in his stretcher) HEENT Head: Yes normocephalic and Yes atraumatic Neck Neck: Yes trachea midline, Yes supple and Yes no JVD Resp Effort & Inspection: decreased respiratory effort Auscultation: clear to auscultation bilaterally (Anteriorly and laterally) Cardio Jugular venous distension: no JVD Rate: regular rate Rhythm: regular rhythm Heart sounds: S1 normal heart sound present, S2 normal heart sound present, no click, no gallops and no murmurs GI Auscultation: normal bowel sounds Skin General skin exam: no rashes or lesions noted Neuro General: patient oriented x3 and no focal motor deficits Extrem General: Yes no clubbing, cyanosis or edema Office Procedures EKG Details: EKGs shows normal sinus rhythm with incomplete right bundle-branch block with anterolateral Q-waves as well as inferior Q-waves 64762-[id number], Complete Assessment & Plan Assessment & Plan (1) Preoperative cardiovascular examination: Code(s): Z01.810 - Encounter for preprocedural cardiovascular examination Category: Medical Plan: Preoperative cardiovascular risk stratification this elderly gentleman with hi story of hypertension and diabetes as well as hyperlipidemia with very limited exercise capacity to undergo at least intermediate risk spine surgery under general anesthesia. Patient has a abnormal EKG. EKG in August during his cervical spine issue of the within normal limits, subsequently EKGs done during hospitalization October for sepsis as well as acute hypoxemic respiratory failure with hypotension had shown possible infarct related changes and then echocardiogram showed significantly reduced LV ejection fraction with multiple wall motion abnormality. This could easily represent stress-induced cardiomyopathy although there has been no follow up and ischemic workup since then. Patient is still very limited and currently moving around with the stretcher. His EKGs still is abnormal. Ischemic heart disease given his multiple risk factors and markedly limited exercise capacity needs to be absolutely ruled out prior to pursuing a noncardiac surgery unless the surgery is considered emergent. I would suggest a vasodilating myocardial perfusion imaging very near future. If he had significant ischemia and or persistent severe LV systolic dysfunction that would increase his surgical risk and should be determined prior to surgery. Also advise him to be having a limited echocardiogram to follow up on his LV ejection fraction as well as wall motion abnormality see if this was reversible stress-induced cardiomyopathy. These tests will be scheduled in as near future as possible. Further recommendations based on the findings. These findings were discussed with patient and patient's sister was on the phone during the entire interview and they understand and agree. Coding Level of Care Code New Pt Level 4 (36092) Complex EM visit Add On G2211 Diagnoses Preoperative cardiovascular examination Z01.810 CPT Codes EKG - CPT: 87831-[id number], Complete ([id number])
[2025-03-08 09:59] VITALS: BP 128/68; PULSE 82
--- OUTSIDE RECORDS SUMMARY | 2025-03-08 10:56 | XMS_ITS | Encounter Summary ---
Author Organization [facility] Address [address] [place] [address] Care Team Providers Care Loan Examiner Name Role Phone Tram Álvarez MD Primary Care Provider [phone] Encounter Details Date Type Department Care Team (Late st Contact Info) Description 03/01/2025 Lab Requisition [facility] - Main Lab [address] [facility] [place] [address] Preeti Lujan MD [address] [id number] Essential (primary) hypertension Social History Tobacco Use [...] Associated Diagnosis Comments BASIC METABOLIC PANEL Routine 03/01/2025 6:05 AM EDT Essential (primary) hypertension documented in this encounter Results * (ABNORMAL) Basic metabolic panel (03/01/2025 6:05 AM EDT) Sodium 141 133 - 145 mmol/L LAB CHEMISTRY METHOD 03/01/2025 11:14 AM EDT [facility] Potassium 4.6 3.5 - 5.5 mmol/L LAB CHEMISTRY METHOD 03/01/2025 11:14 AM [facility] Chloride 112(H) 96 - 110 mmol/L LAB CHEMISTRY METHOD 03/01/2025 11:14 AM [facility] CO2 25 21 - 32 mmol/L LAB CHEMISTRY METHOD 03/01/2025 11:14 AM [facility] Anion Gap 4 3 - 11 LAB CHEMISTRY METHOD 03/01/2025 11:14 AM [facility] Glucose 135(H) 70 - 100 mg/dL LAB CHEMISTRY METHOD 03/01/2025 11:14 AM [facility] BUN 25 5 - 25 mg/dL LAB CHEMISTRY METHOD 03/01/2025 11:14 AM [facility] Creatinine 0.76 0.70 - 1.30 mg/dL LAB CHEMISTRY METHOD 03/01/2025 11:14 AM [facility] eGFR 97 >=60 mL/min/1. 73m2 LAB CHEMISTRY METHOD 03/01/2025 11:14 AM [facility] Comment:Calculation based on the Chronic Kidney Disease Epidemiology Collaboration (CKD-EPI) equation refit without adjustment for race. BUN/Creatinine Ratio 32.9 LAB CHEMISTRY METHOD 03/01/2025 11:14 AM [facility] Calcium 8.5 8.5 - 10.5 mg/dL LAB CHEMISTRY METHOD 03/01/2025 11:14 AM [facility] Blood Venous blood specimen / Unknown Venipuncture / Unknown 03/01/2025 6:05 AM EDT 03/01/2025 8:40 AM EDT us Preeti Lujan MD LAB BLOOD ORDERABLES Fin al Result [facility] [address] [place] [address], documented in this encounter Visit Diagnoses Diagnosis Essential (primary) hypertension Unspecified essential hypertension documented in this encounter Care Teams Loan Examiner Relationship Specialty Start Date End Date Tram Álvarez MD 2 [facility] , [address] Physician Associ D/B/A: [facility] JAS Duque PCP - General Internal Medicine 03/30/18 documented as of this encounter
--- OUTSIDE RECORDS SUMMARY | 2025-03-08 10:56 | XMS_ITS | Encounter Summary ---
Author Organization [facility] Address [address] [place] [address] Care Team Providers Care Tearer Name Role Phone Tram Álvarez MD Primary Care Provider [phone] Encounter Details Date Type Department Care Team (Late st Contact Info) Description 08/26/2024 Lab Requisition [facility] - Main Lab 299 [facility] [place] [address] Prince Le MD 38 [facility] [address] [place], [address] Type 2 diabetes mellitus without complications [...] mg/dL LAB CHEMISTRY METHOD 08/27/2024 9:27 AM [facility] Triglycerides 249(H) 0 - 150 mg/dL LAB CHEMISTRY METHOD 08/27/2024 9:27 AM [facility] HDL 30(L) >=40 mg/dL LAB CHEMISTRY METHOD 08/27/2024 9:27 AM [facility] LDL Calculated 16 0 - 100 mg/dL LAB CHEMISTRY METHOD 08/27/2024 9:27 AM [facility] VLDL Cholesterol Maikel 49.8 mg/dL LAB CHEMISTRY METHOD 08/27/2024 9:27 AM [facility] Non HDL Chol. (LDL+VLDL) 66 <145 mg/dL LAB CHEMISTRY METHOD 08/27/2024 9:27 AM [facility] Chol/HDL Ratio 3.2 0.0 - 4.4 LAB CHEMISTRY METHOD 08/27/2024 9:27 AM [facility] Blood Venous blood specimen / Unknown Venipuncture / Unknown 08/27/2024 6:34 AM EST 08/27/2024 8:52 AM EST us Prince Le MD LAB BLOOD ORDERABLES Final Resul t [facility] LAB [address] [place] [address], * (ABNORMAL) C-reactive protein (08/27/2024 6:34 AM EST) C-Reactive Protein 1.47(H) <=0.50 mg/dL LAB CHEMISTRY METHOD 08/27/2024 9:27 AM [facility] Blood Venous blood specimen / Unknown Venipuncture / Unknown 08/27/2024 6:34 AM EST 08/27/2024 8:52 AM EST us Prince Le MD LAB BLOOD ORDERABLES Final Resul t [facility] [address] [place] [address], [place] [phone] * (ABNORMAL) Comprehensive metabolic panel (08/27/2024 6:34 AM EST) Sodium 139 133 - 145 mmol/L LAB CHEMISTRY METHOD 08/27/2024 9:27 AM [facility] Potassium 4.6 3.5 - 5.5 mmol/L LAB CHEMISTRY METHOD 08/27/2024 9:27 AM [facility] Chloride 105 96 - 110 mmol/L LAB CHEMISTRY METHOD 08/27/2024 9:27 AM [facility] CO2 31 21 - 32 mmol/L LAB CHEMISTRY METHOD 08/27/2024 9:27 AM [facility] Anion Gap 3 3 - 11 LAB CHEMISTRY METHOD 08/27/2024 9:27 AM [facility] Glucose 112(H) 70 - 100 mg/dL LAB CHEMISTRY METHOD 08/27/2024 9:27 AM [facility] BUN 19 5 - 25 mg/dL LAB CHEMISTRY METHOD 08/27/2024 9:27 AM [facility] Creatinine 0.71 0.70 - 1.30 mg/dL LAB CHEMISTRY METHOD 08/27/2024 9:27 AM [facility] eGFR 100 >=60 mL/min/1. 73m2 LAB CHEMISTRY METHOD 08/27/2024 9:27 AM [facility] Comment:Calculation based on the Chronic Kidney Disease Epidemiology Collaboration (CKD-EPI) equation refit without adjustment for race. BUN/Creatinine Ratio 26.8 LAB CHEMISTRY METHOD 08/27/2024 9:27 AM [facility] Calcium 9.5 8.5 - 10.5 mg/dL LAB CHEMISTRY METHOD 08/27/2024 9:27 AM [facility] AST (SGOT) 19 10 - 42 unit/L LAB CHEMISTRY METHOD 08/27/2024 9:27 AM [facility] ALT (SGPT) 29 10 - 60 unit/L LAB CHEMISTRY METHOD 08/27/2024 9:27 AM [facility] Alkaline Phosphatase 53 42 - 121 unit/L LAB CHEMISTRY METHOD 08/27/2024 9:27 AM [facility] Total Protein 6.5 6.0 - 8.0 g/dL LAB CHEMISTRY METHOD 08/27/2024 9:27 AM [facility] Albumin 3.2 3.2 - 5.0 g/dL LAB CHEMISTRY METHOD 08/27/2024 9:27 AM [facility] Total Bilirubin 0.6 0.0 - 1.4 mg/dL LAB CHEMISTRY METHOD 08/27/2024 9:27 AM [facility] Blood Venous blood specimen / Unknown Venipuncture / Unknown 08/27/2024 6:34 AM EST 08/27/2024 8:52 AM EST us Prince Le MD LAB BLOOD ORDERABLES Final Resul t [facility] [address] [place] [address], * (ABNORMAL) Complete blood count (08/27/2024 6:34 AM EST) WBC 12.7(H) 4.8 - 10.8 K/mcL LAB HEMETOLOGY METHOD 08/27/2024 9:04 AM [facility] RBC 3.80(L) 4.50 - 5.50 M/mcL LAB HEMETOLOGY METHOD 08/27/2024 9:04 AM [facility] Hemoglobin 10.9(L) 13.5 - 17.5 g/dL LAB HEMETOLOGY METHOD 08/27/2024 9:04 AM [facility] Hematocrit 34.6(L) 42.0 - 54.0 % LAB HEMETOLOGY METHOD 08/27/2024 9:04 AM [facility] MCV 91.5 79.0 - 98.0 FL LAB HEMETOLOGY METHOD 08/27/2024 9:04 AM [facility] MCH 28.8 27.0 - 32.0 pcg LAB HEMETOLOGY METHOD 08/27/2024 9:04 AM [facility] MCHC 31.5(L) 32.0 - 37.0 g/dL LAB HEMETOLOGY METHOD 08/27/2024 9:04 AM [facility] RDW 20.3(H) 11.0 - 15.0 % LAB HEMETOLOGY METHOD 08/27/2024 9:04 AM [facility] Platelets 422(H) 130 - 400 K/mcL LAB HEMETOLOGY METHOD 08/27/2024 9:04 AM [facility] MPV 12.5(H) 7.0 - 11.0 FL LAB HEMETOLOGY METHOD 08/27/2024 9:04 AM [facility] NRBC 0.0 <1.0 % LAB HEMETOLOGY METHOD 08/27/2024 9:04 AM [facility] NRBC Absolute 0.00 <0.10 K/mcL LAB HEMETOLOGY METHOD 08/27/2024 9:04 AM [facility] Blood Venous blood specimen / Unknown Venipuncture / Unknown 08/27/2024 6:34 AM EST 08/27/2024 8:52 AM EST us Prince Le MD LAB BLOOD ORDERABLES Final Resul t [facility] [address] [place] [address], documented in this encounter Visit Diagnoses Diagnosis Type 2 diabetes mellitus without complications (CMS/HCC V24, CMS/HCC V28) documented in this encounter Care Teams Tearer Relationship Specialty Start Date End Date Tram Álvarez MD [facility] , [address] [facility] Physician Associ D/B/A: [facility] [place], [place] PCP - General Internal Medicine 03/30/18 documented as of this encounter
--- OUTSIDE RECORDS SUMMARY | 2025-03-08 10:56 | XMS_ITS | Clinical Summary ---
Author Organization [address] [facility] Address [address] [place] [address] Phone Care Team Providers Care Employment Interviewer Name Role Phone Tram Álvarez MD Primary Care Provider [phone] Encounters Date Type Department Care Team Description 03/01/2025 Lab Requisition [facility] Lab [address] [place] [address] Preeti Lujan MD Essential (primary) hypertension 02/24/2025 Lab Requisition [facility] Lab [address] [place] [address] Preeti Lujan MD Essential (primary) hypertension from Last 3 [...] Screen 06/04/2022 Colorectal Cancer Screening: Colonoscopy 06/04/2022 Falls Risk Assessment 06/04/2022 Hepatitis C Screening 06/04/2022 Medicare Annual Wellness Visit 06/04/2022 Social Influencers of Health Screening 06/04/2022 COVID-19 Vaccine ( season) 2024 04/10/2023, 09/11/2020, 08/21/2020 Diabetes: Annual Urine Albumin-Creatinine Ratio (uACR) 05/08/2024 Depression Screening 07/07/2024 Influenza Vaccine (#1) 2025 , 04/07/2023, 05/08/2022, Additional history exists Diabetes: Blood Sugar Control Test (HGBA1C) 04/23/2025 10/22/2024 Diabetes: Annual GFR (Glomerular Filtration Rate) 03/01/2026 03/01/2025, 02/24/2025, 11/18/2024, Additional history exists Hypertension/CHF/CAD Annual BMP Blood Test 03/01/2026 03/01/2025, 02/24/2025, 11/18/2024, Additional history exists Cholesterol Screening (Lipid Panel) 08/27/2029 08/27/2024 HIB Vaccines Aged Out No longer eligi [...] 03/01/2025 6:05 AM EDT Essential (primary) hypertension BASIC METABOLIC PANEL Routine 02/24/2025 6:34 AM EDT Essential (primary) hypertension COMPLETE BLOOD COUNT Routine 02/24/2025 6:34 AM EDT Essential (primary) hypertension HEMOGLOBIN A1C Routine 10/22/2024 6:43 AM EDT Type 2 diabetes mellitus without complications ([facility] V24, [facility] V28) LIPID PANEL WITH REFLEX TO DIRECT LDL Routine 08/27/2024 6:34 AM EST Type 2 diabetes mellitus without complications ([facility]) from Last 3 Months or Most Recently Relevant to Health Maintenance Results * (ABNORMAL) Basic metabolic panel (03/01/2025 6:05 AM EDT) Only the most recent of2 resultswithin the time period is included. Sodium 141 133 - 145 mmol/L LAB [...] 32.9 LAB CHEMISTRY METHOD 03/01/2025 11:14 AM EDT [facility] Calcium 8.5 8.5 - 10.5 mg/dL LAB CHEMISTRY METHOD 03/01/2025 11:14 AM [facility] Blood Venous blood specimen / Unknown Venipuncture / Unknown 03/01/2025 6:05 AM EDT 03/01/2025 8:40 AM EDT us Preeti Lujan MD LAB BLOOD ORDERABLES Fin al Result [facility] [address] [place] [address], * (ABNORMAL) Complete blood count (02/24/2025 6:34 AM EDT) WBC 7.9 4.8 - 10.8 K/mcL LAB HEMETOLOGY METHOD 02/24/2025 9:35 AM [facility] RBC 3.90(L) 4.50 - 5.50 M/mcL LAB HEMETOLOGY METHOD 02/24/2025 9:35 AM [facility] Hemoglobin 11.0(L) 13.5 - 17.5 g/dL LAB HEMETOLOGY METHOD 02/24/2025 9:35 AM [facility] Hematocrit 36.9(L) 42.0 - 54.0 % LAB HEMETOLOGY METHOD 02/24/2025 9:35 AM [facility] MCV 95.3 79.0 - 98.0 FL LAB HEMETOLOGY METHOD 02/24/2025 9:35 AM [facility] MCH 28.4 27.0 - 32.0 pcg LAB HEMETOLOGY METHOD 02/24/2025 9:35 AM EDT [facility] MCHC 29.8(L) 32.0 - 37.0 g/dL LAB HEMETOLOGY METHOD 02/24/2025 9:35 AM EDT [facility] RDW 17.6(H) 11.0 - 15.0 % LAB HEMETOLOGY METHOD 02/24/2025 9:35 AM EDT [facility] Platelets 287 130 - 400 K/mcL LAB HEMETOLOGY METHOD 02/24/2025 9:35 AM EDT [facility] MPV 12.9(H) 7.0 - 11.0 FL LAB HEMETOLOGY METHOD 02/24/2025 9:35 AM EDT [facility] NRBC 0.0 <1.0 % LAB HEMETOLOGY METHOD 02/24/2025 9:35 AM EDT [facility] NRBC Absolute 0.00 <0.10 K/mcL LAB HEMETOLOGY METHOD 02/24/2025 9:35 AM EDT [facility] Blood Venous blood specimen / Unknown Venipuncture / Unknown 02/24/2025 6:34 AM EDT 02/24/2025 8:31 AM EDT us Preeti Lujan MD LAB BLOOD ORDERABLES Fin al Result [facility] [address] [place] [address], * Hemoglobin A1c (10/22/2024 6:43 AM EDT) Hemoglobin A1C 5.5 <6.5 % LAB CHEMISTRY METHOD 10/22/2024 2:03 PM EDT [facility] Mean Bld Glu Estim. 111 mg/dL LAB CHEMISTRY METHOD 10/22/2024 2:03 PM EDT [facility] Blood Venous blood specimen / Unknown Venipuncture / Unknown 10/22/2024 6:43 AM EDT 10/22/2024 9:05 AM EDT us Preeti Lujan MD LAB BLOOD ORDERABLES Fin al Result Performing Organization Address City/[facility]/ZIP Co de Phone Number [facility] [address] [place] [address], [place] [phone] * (ABNORMAL) Lipid panel with reflex to direct LDL (08/27/2024 6:34 AM EST) [facility] Cholesterol 96 0 - 200 mg/dL LAB CHEMISTRY METHOD 08/27/2024 9:27 AM EST [facility] Triglycerides 249(H) 0 - 150 mg/dL LAB CHEMISTRY METHOD 08/27/2024 9:27 AM [facility] HDL 30(L) >=40 mg/dL LAB CHEMISTRY METHOD 08/27/2024 9:27 AM EST [facility] LDL Calculated 16 0 - 100 mg/dL LAB CHEMISTRY METHOD 08/27/2024 9:27 AM EST [facility] VLDL Cholesterol Maikel 49.8 mg/dL LAB CHEMISTRY METHOD 08/27/2024 9:27 AM EST [facility] Non HDL Chol. (LDL+VLDL) 66 <145 mg/dL LAB CHEMISTRY METHOD 08/27/2024 9:27 AM EST [facility] Chol/HDL Ratio 3.2 0.0 - 4.4 LAB CHEMISTRY METHOD 08/27/2024 9:27 AM [facility] Blood Venous blood specimen / Unknown Venipuncture / Unknown 08/27/2024 6:34 AM EST 08/27/2024 8:52 AM EST us Prince Le MD LAB BLOOD ORDERABLES Final Resul t Performing Organization Address [facility]/ZIP Co de Phone Number [facility] [address] [place] [address], [place] [phone] from Last 3 Months or Most Recently Relevant to Health Maintenance Insurance [employer] Member Subscriber Plan / Payer (Ef fective 2023-Present) Name:EDER GARCIA Relation to Subscriber:Self Name:Rick Eder Talamantes Payer ID:[id number] Group ID:[id number] Type:Not on file Address: [place] [address] [address] [id number] Care Teams Employment Interviewer Relationship Specialty Start Date End Date Tram Álvarez MD [address] [place] [address] , [address] [facility] Physician Associ D/B/A: [facility] JAS Duque PCP - General Internal Medicine 03/30/18
--- OUTSIDE RECORDS SUMMARY | 2025-03-08 10:56 | XMS_ITS | Encounter Summary ---
Author Organization [facility] Address [address] [place] [address] Care Team Providers Care Heel Finisher Name Role Phone Tram Álvarez MD Primary Care Provider [phone] Encounter Details Date Type Department Care Team (Late st Contact Info) Description 06/18/2024 Lab Requisition [facility] - Main Lab [address] [place] [address] Prince Le MD 38 [facility] [address] [place], [address] Nausea with vomiting, unspecified; Chronic kidney [...] LAB CHEMISTRY METHOD 06/18/2024 11:17 AM EST [facility] Potassium 4.6 3.5 - 5.5 mmol/L LAB CHEMISTRY METHOD 06/18/2024 11:17 AM [facility] LAB Chloride 102 96 - 110 mmol/L LAB CHEMISTRY METHOD 06/18/2024 11:17 AM [facility] LAB CO2 32 21 - 32 mmol/L LAB CHEMISTRY METHOD 06/18/2024 11:17 AM [facility] LAB Anion Gap 8 3 - 11 LAB CHEMISTRY METHOD 06/18/2024 11:17 AM [facility] LAB Glucose 72 70 - 100 mg/dL LAB CHEMISTRY METHOD 06/18/2024 11:17 AM [facility] LAB BUN 35(H) 5 - 25 mg/dL LAB CHEMISTRY METHOD 06/18/2024 11:17 AM [facility] LAB Creatinine 1.44(H) 0.70 - 1.30 mg/dL LAB CHEMISTRY METHOD 06/18/2024 11:17 AM [facility] LAB eGFR 53(L) >=60 mL/min/1. 73m2 LAB CHEMISTRY METHOD 06/18/2024 11:17 AM [facility] LAB Comment:Calculation based on the Chronic Kidney Disease Epidemiology Collaboration (CKD-EPI) equation refit without adjustment for race. BUN/Creatinine Ratio 24.3 LAB CHEMISTRY METHOD 06/18/2024 11:17 AM [facility] LAB Calcium 9.3 8.5 - 10.5 mg/dL LAB CHEMISTRY METHOD 06/18/2024 11:17 AM [facility] LAB Blood Venous blood specimen / Unknown Venipuncture / Unknown 06/18/2024 6:44 AM EST 06/18/2024 9:17 AM EST us Prince Le MD LAB BLOOD ORDERABLES Final Resul t [facility] LAB [address] [place] [address], [place] [phone] * (ABNORMAL) Complete blood count (06/18/2024 6:44 AM EST) WBC 8.4 4.8 - 10.8 K/[facility] LAB HEMETOLOGY METHOD 06/18/2024 10:46 AM [facility] LAB RBC 5.10 4.50 - 5.50 M/[facility] LAB HEMETOLOGY METHOD 06/18/2024 10:46 AM [facility] LAB Hemoglobin 14.2 13.5 - 17.5 g/dL LAB HEMETOLOGY METHOD 06/18/2024 10:46 AM [facility] LAB Hematocrit 43.5 42.0 - 54.0 % LAB HEMETOLOGY METHOD 06/18/2024 10:46 AM [facility] LAB MCV 86.1 79.0 - 98.0 FL LAB HEMETOLOGY METHOD 06/18/2024 10:46 AM [facility] LAB MCH 28.1 27.0 - 32.0 pcg LAB HEMETOLOGY METHOD 06/18/2024 10:46 AM [facility] LAB MCHC 32.6 32.0 - 37.0 g/dL LAB HEMETOLOGY METHOD 06/18/2024 10:46 AM [facility] LAB RDW 17.2(H) 11.0 - 15.0 % LAB HEMETOLOGY METHOD 06/18/2024 10:46 AM [facility] LAB Platelets 248 130 - 400 K/[facility] LAB HEMETOLOGY METHOD 06/18/2024 10:46 AM [facility] LAB MPV 12.7(H) 7.0 - 11.0 FL LAB HEMETOLOGY METHOD 06/18/2024 10:46 AM [facility] LAB NRBC 0.0 <1.0 % LAB HEMETOLOGY METHOD 06/18/2024 10:46 AM [facility] LAB NRBC Absolute 0.00 <0.10 K/[facility] LAB HEMETOLOGY METHOD 06/18/2024 10:46 AM [facility] LAB Blood Venous blood specimen / Unknown Venipuncture / Unknown 06/18/2024 6:44 AM EST 06/18/2024 9:17 AM EST us Prince Le MD LAB BLOOD ORDERABLES Final Resul t [facility] ([facility] [address] [place] [address], documented in this encounter Visit Diagnoses Diagnosis Nausea with vomiting, unspecified Chronic kidney disease, unspecified documented in this encounter Care Teams Heel Finisher Relationship Specialty Start Date End Date Tram Álvarez MD 2 [facility] , [address] Physician Associ D/B/A: [facility] JAS Duque PCP - General Internal Medicine 03/30/18 documented as of this encounter
--- OUTSIDE RECORDS SUMMARY | 2025-03-08 10:56 | XMS_ITS | Encounter Summary ---
Author Organization [facility] Address [address] [place] [address] Care Team Providers Care Timers Inspector Name Role Phone Tram Álvarez MD Primary Care Provider [phone] Encounter Details Date Type Department Care Team (Late st Contact Info) Description 10/07/2024 Lab Requisition [facility] - Main Lab 299 [facility] [place] [address] Prince Le MD 38 [facility] [address] [place], [address] Type 2 diabetes mellitus without complications [...] V28) documented in this encounter Care Teams Timers Inspector Relationship Specialty Start Date End Date Tram Álvarez MD [address] [place] [address] , [address] [facility] Physician Associ D/B/A: [facility] [place], [place] PCP - General Internal Medicine 03/30/18 documented as of this encounter
--- OUTSIDE RECORDS SUMMARY | 2025-03-08 10:56 | XMS_ITS | Clinical Summary ---
Author Organization [facility] Address [address] [place] [address] Care Team Providers Care Math Teacher Name Role Phone Tram Royal MD Primary Care Provider [phone] Allergies Active Allergy Reactions Criticality Noted Date [...] Visual Foot Exam 08/04/2020 Influenza Vaccine (#1) 2025 2, 03/22/2011, 07/09/2010 Pneumococcal Vaccine: Peds ( 0 [...] % PVNMA 04/28/2020 us [facility] Conversion LAB [id number] LICITED RESULTS Final Result PVNMA from Last 3 Months or Most Recently Relevant to Health Maintenance Insurance [id number] [place] [id number] [place] [address] [place] [id number] [place] Care Teams Math Teacher Relationship Specialty Start Date End Date Tram Royal MD [address] [place] PCP - General 07/17/20
--- OUTSIDE RECORDS SUMMARY | 2025-03-08 10:56 | XMS_ITS | Encounter Summary ---
Author Organization [facility] Address [address] [place] [address] Care Team Providers Care Concrete Craftsman Name Role Phone Tram Álvarez MD Primary Care Provider [phone] Encounter Details Date Type Department Care Team (Late st Contact Info) Description 10/18/2024 Lab Requisition [facility] - Main Lab [address] [place] [address] Preeti Lujan MD [address] [phone] Sepsis, unspecified organism (CMS/HCC V24, CMS/HCC V28) [...] LAB CHEMISTRY METHOD 10/18/2024 1:15 PM EDT [facility]) [facility] LAB Potassium 4.0 3.5 - 5.5 mmol/L LAB CHEMISTRY METHOD 10/18/2024 1:15 PM [facility] LAB Chloride 113(H) 96 - 110 mmol/L LAB CHEMISTRY METHOD 10/18/2024 1:15 PM [facility] LAB CO2 22 21 - 32 mmol/L LAB CHEMISTRY METHOD 10/18/2024 1:15 PM [facility] LAB Anion Gap 7 3 - 11 LAB CHEMISTRY METHOD 10/18/2024 1:15 PM [facility] LAB Glucose 114(H) 70 - 100 mg/dL LAB CHEMISTRY METHOD 10/18/2024 1:15 PM [facility] LAB BUN 12 5 - 25 mg/dL LAB CHEMISTRY METHOD 10/18/2024 1:15 PM [facility] LAB Creatinine 0.58(L) 0.70 - 1.30 mg/dL LAB CHEMISTRY METHOD 10/18/2024 1:15 PM [facility] LAB eGFR 106 >=60 mL/min/1. 73m2 LAB CHEMISTRY METHOD 10/18/2024 1:15 PM [facility] LAB Comment:Calculation based on the Chronic Kidney Disease Epidemiology Collaboration (CKD-EPI) equation refit without adjustment for race. BUN/Creatinine Ratio 20.7 LAB CHEMISTRY METHOD 10/18/2024 1:15 PM [facility] LAB Calcium 8.7 8.5 - 10.5 mg/dL LAB CHEMISTRY METHOD 10/18/2024 1:15 PM [facility] LAB Blood Venous blood specimen / Unknown Venipuncture / Unknown 10/18/2024 9:03 AM EDT 10/18/2024 11:02 AM EDT us Preeti Lujan MD LAB BLOOD ORDERABLES Fin al Result [facility] [address] [place] [address], [place] [phone] * (ABNORMAL) Complete blood count (10/18/2024 9:03 AM EDT) [facility] WBC 5.9 4.8 - 10.8 K/mcL LAB HEMETOLOGY METHOD 10/18/2024 1:35 PM EDT [facility] LAB RBC 3.40(L) 4.50 - 5.50 M/mcL LAB HEMETOLOGY METHOD 10/18/2024 1:35 PM EDT [facility] LAB Hemoglobin 10.1(L) 13.5 - 17.5 g/dL LAB HEMETOLOGY METHOD 10/18/2024 1:35 PM [facility] LAB Hematocrit 32.3(L) 42.0 - 54.0 % LAB HEMETOLOGY METHOD 10/18/2024 1:35 PM [facility] LAB MCV 96.4 79.0 - 98.0 FL LAB HEMETOLOGY METHOD [facility] MCH 30.1 27.0 - 32.0 pcg LAB HEMETOLOGY METHOD 10/18/2024 1:35 PM [facility] LAB MCHC 31.3(L) 32.0 - 37.0 g/dL LAB HEMETOLOGY METHOD 10/18/2024 1:35 PM [facility] LAB RDW 18.2(H) 11.0 - 15.0 % LAB HEMETOLOGY METHOD 10/18/2024 1:35 PM EDT [facility] LAB Platelets 275 130 - 400 K/mcL LAB HEMETOLOGY METHOD 10/18/2024 1:35 PM [facility] MPV 13.2(H) 7.0 - 11.0 FL LAB HEMETOLOGY METHOD 10/18[facility]24 [facility] NRBC 0.0 <1.0 % LAB HEMETOLOGY METHOD 10/18/2024 1:35 PM EDT [facility] LAB NRBC Absolute 0.00 <0.10 K/mcL LAB HEMETOLOGY METHOD 10/18/2024 1:35 PM EDT [facility] LAB Blood Venous blood specimen / Unknown Venipuncture / Unknown 10/18/2024 9:03 AM EDT 10/18/2024 11:02 AM EDT us Preeti Lujan MD LAB BLOOD ORDERABLES Fin al Result [facility] [address] [place] [address], documented in this encounter Visit Diagnoses Diagnosis Sepsis, unspecified organism (CMS/HCC V24, CMS/HCC V28) documented in this encounter Care Teams Concrete Craftsman Relationship Specialty Start Date End Date Tram Álvarez MD 2 [facility] , [address] [place] [address] Physician Associ D/B/A: [facility] [place], [place] PCP - General Internal Medicine 03/30/18 documented as of this encounter
--- OUTSIDE RECORDS SUMMARY | 2025-03-08 10:56 | XMS_ITS | Encounter Summary ---
Author Organization [facility] Address [address] [place] [address] Care Team Providers Care Animal Trainer Supervisor Name Role Phone Tram Álvarez MD Primary Care Provider [phone] Encounter Details Date Type Department Care Team (Late st Contact Info) Description 08/19/2024 Lab Requisition [facility] - Main Lab [address] [place] [address] Prince Le MD 38 [facility] [address] [place], [address] Type 2 diabetes mellitus without complications [...] mg/dL LAB CHEMISTRY METHOD 08/20/2024 11:12 AM [facility] LAB Blood Venous blood specimen / Unknown Venipuncture / Unknown 08/20/2024 7:39 AM EST 08/20/2024 10:36 AM EST us Prince Le MD LAB BLOOD ORDERABLES Final Resul t [facility] [address] [place] [address], * (ABNORMAL) Comprehensive metabolic panel (08/20/2024 7:39 AM EST) Sodium 139 133 - 145 mmol/L LAB CHEMISTRY METHOD 08/20/2024 11:11 AM [facility] LAB Potassium 4.5 3.5 - 5.5 mmol/L LAB CHEMISTRY METHOD 08/20/2024 11:11 AM [facility] LAB Chloride 109 96 - 110 mmol/L LAB CHEMISTRY METHOD 08/20/2024 11:11 AM [facility] LAB CO2 26 21 - 32 mmol/L LAB CHEMISTRY METHOD 08/20/2024 11:11 AM [facility] LAB Anion Gap 4 3 - 11 LAB CHEMISTRY METHOD 08/20/2024 11:11 AM [facility] LAB Glucose 120(H) 70 - 100 mg/dL LAB CHEMISTRY METHOD 08/20/2024 11:11 AM [facility] LAB BUN 22 5 - 25 mg/dL LAB CHEMISTRY METHOD 08/20/2024 11:11 AM [facility] LAB Creatinine 0.78 0.70 - 1.30 mg/dL LAB CHEMISTRY METHOD 08/20/2024 11:11 AM [facility] LAB eGFR 97 >=60 mL/min/1. 73m2 LAB CHEMISTRY METHOD 08/20/2024 11:11 AM [facility] LAB Comment:Calculation based on the Chronic Kidney Disease Epidemiology Collaboration (CKD-EPI) equation refit without adjustment for race. BUN/Creatinine Ratio 28.2 LAB CHEMISTRY METHOD 08/20/2024 11:11 AM [facility] LAB Calcium 9.3 8.5 - 10.5 mg/dL LAB CHEMISTRY METHOD 08/20/2024 11:11 AM [facility] LAB AST (SGOT) 35 10 - 42 unit/L LAB CHEMISTRY METHOD 08/20/2024 11:11 AM [facility] LAB ALT (SGPT) 30 10 - 60 unit/L LAB CHEMISTRY METHOD 08/20/2024 11:11 AM [facility] LAB Alkaline Phosphatase 39(L) 42 - 121 unit/L LAB CHEMISTRY METHOD 08/20/2024 11:11 AM [facility] LAB Total Protein 6.6 6.0 - 8.0 g/dL LAB CHEMISTRY METHOD 08/20/2024 11:11 AM [facility] LAB Albumin 3.5 3.2 - 5.0 g/dL LAB CHEMISTRY METHOD 08/20/2024 11:11 AM [facility] LAB Total Bilirubin 0.8 0.0 - 1.4 mg/dL LAB CHEMISTRY METHOD 08/20/2024 11:11 AM [facility] LAB Blood Venous blood specimen / Unknown Venipuncture / Unknown 08/20/2024 7:39 AM EST 08/20/2024 10:36 AM EST us Prince Le MD LAB BLOOD ORDERABLES Final Resul t [facility] [address] [place] [address], * (ABNORMAL) Complete blood count (08/20/2024 7:39 AM EST) WBC 13.2(H) 4.8 - 10.8 K/mcL LAB HEMETOLOGY METHOD 08/20/2024 10:52 AM [facility] LAB RBC 3.90(L) 4.50 - 5.50 M/mcL LAB HEMETOLOGY METHOD 08/20/2024 10:52 AM [facility] LAB Hemoglobin 11.0(L) 13.5 - 17.5 g/dL LAB HEMETOLOGY METHOD 08/20/2024 10:52 AM [facility] LAB Hematocrit 33.1(L) 42.0 - 54.0 % LAB HEMETOLOGY METHOD 08/20/2024 10:52 AM [facility] LAB MCV 85.3 79.0 - 98.0 FL LAB HEMETOLOGY METHOD 08/20/2024 10:52 AM [facility] LAB MCH 28.4 27.0 - 32.0 pcg LAB HEMETOLOGY METHOD 08/20/2024 10:52 AM [facility] LAB MCHC 33.2 32.0 - 37.0 g/dL LAB HEMETOLOGY METHOD 08/20/2024 10:52 AM [facility] LAB RDW 20.9(H) 11.0 - 15.0 % LAB HEMETOLOGY METHOD 08/20/2024 10:52 AM [facility] LAB Platelets 329 130 - 400 K/mcL LAB HEMETOLOGY METHOD 08/20/2024 10:52 AM [facility] LAB MPV 13.2(H) 7.0 - 11.0 FL LAB HEMETOLOGY METHOD 08/20/2024 10:52 AM [facility] LAB NRBC 0.0 <1.0 % LAB HEMETOLOGY METHOD 08/20/2024 10:52 AM [facility] LAB NRBC Absolute 0.00 <0.10 K/mcL LAB HEMETOLOGY METHOD 08/20/2024 10:52 AM [facility] LAB Blood Venous blood specimen / Unknown Venipuncture / Unknown 08/20/2024 7:39 AM EST 08/20/2024 10:36 AM EST us Prince Le MD LAB BLOOD ORDERABLES Final Resul t [facility]) [facility] [address] [place] [address], documented in this encounter Visit Diagnoses Diagnosis Type 2 diabetes mellitus without complications (CMS/HCC V24, CMS/HCC V28) documented in this encounter Care Teams Animal Trainer Supervisor Relationship Specialty Start Date End Date Tram Álvarez MD 2 [facility] , [address] [facility] Physician Associ D/B/A: [facility] JAS Duque PCP - General Internal Medicine 03/30/18 documented as of this encounter
--- OUTSIDE RECORDS SUMMARY | 2025-03-08 10:56 | XMS_ITS | Clinical Summary ---
Author Organization [facility] Address [address] [place] [address] Care Team Providers Care Critical Care Physician Name Role Phone Sade Dykes PA-C Primary Care Provider [phone] Source Comments PLEASE NOTE, if this patient [...] 60 Tab 0 12/01/19 14 Active Acidophilus-Pectin, [place] 25 million-100 cell-mg tabIndications:Dive rticulosis Take 1 tablet by mouth 2 (two) times daily. As directed by printed products assembler 100 tablet 3 01/31/20 14 Active benazepril [...] INFLUENZA, SEASONAL, INJECTABLE 03/06/2012,03/22,07/09/2010 PNEUMOCOCCAL POLYSACCHARIDE PPV23 (Pneumovax 23) 07/09/2010 TDAP 08/31/2010 Social History Tobacco Use [...] 72 06/21/2014 9:33 AM EST Temperature 36.2 C (97.2 F) 03/01/2014 3:04 PM EDT Respiratory Rate 18 06/21/2014 9:33 AM EST Oxygen Saturation - - Inhaled Oxygen Concentration - - Weight 112.9 kg (249 lb) 06/21/2014 9:33 AM EST Height 172.7 cm (5' 8 ) 06/21/2014 9:33 AM EST Body Mass Index 37.86 06/21/2014 9:33 AM EST Plan of Treatment Not on file Insurance [facility] DENTAL [facility] D[facility]AL [employer] Care Teams Critical Care Physician Relationship Specialty Start Date End Date Sade Dykes PA-C [address] [place] [address] [facility] - General 04/14/13
--- OUTSIDE RECORDS SUMMARY | 2025-03-08 10:56 | XMS_ITS | Encounter Summary ---
Author Organization [facility] Address [address] [place] [address] Care Team Providers Care Inspector Of Dredging Name Role Phone Tram Álvarez MD Primary Care Provider [phone] Encounter Details Date Type Department Care Team (Late st Contact Info) Description 08/12/[address] [facility] - Main Lab [address] [place] [address] Prince Le MD 38 [facility] [address] [place], [address] Type 2 diabetes mellitus without complications [...] Resul t [facility] [address] [place] [address], * (ABNORMAL) Comprehensive metabolic panel (08/13/2024 7:38 [...] AM [facility] LAB Comment:Calculation based on the Chronic Kidney Disease Epidemiology Collaboration (CKD-EPI) equation refit without adjustment for race. BUN/Creatinine Ratio 31.6 LAB [...] Resul t [facility] [address] [place] [address], * (ABNORMAL) Complete blood count (08/13/2024 7:30 [...] BLOOD ORDERABLES Final Resul t [facility] [address] [place] [address], documented in this encounter Visit Diagnoses Diagnosis Type 2 diabetes mellitus without complications (CMS/HCC V24, CMS/HCC V28) documented in this encounter Care Teams Inspector Of Dredging Relationship Specialty Start Date End Date Tram Álvarez MD 2 [facility] , [address] [facility] Physician Associ D/B/A: [facility] [place], [place] PCP - General Internal Medicine 03/30/18 documented as of this encounter
--- OUTSIDE RECORDS SUMMARY | 2025-03-08 10:56 | XMS_ITS | Encounter Summary ---
Author Organization [facility] Address [address] [place] [address] Care Team Providers Care Book Mender Name Role Phone Tram Álvarez MD Primary Care Provider [phone] Encounter Details Date Type Department Care Team (Late st Contact Info) Description 08/05/2024 Lab Requisition [facility] - Main Lab [address] [place] [address] Prince Le MD 38 [facility] [address] [place], [address] Type 2 diabetes mellitus without complications [...] Resul t [facility] [address] [place] [address], * Comprehensive metabolic panel (08/06/2024 6:49 AM [...] [facility] Comment:Calculation based on the Chronic [...] Resul t [facility] [address] [place] [address], * (ABNORMAL) Complete blood count (08/06/2024 6:49 [...] LAB BLOOD ORDERABLES Final Resul t [facility] ([facility]) [facility] [address] [place] [address], documented in this encounter Visit Diagnoses Diagnosis Type 2 diabetes mellitus without complications (CMS/HCC V24, CMS/HCC V28) documented in this encounter Care Teams Book Mender Relationship Specialty Start Date End Date Tram Álvarez MD 2 [facility] , [address] [facility] Physician Associ D/B/A: [facility] [place] PCP - General Internal Medicine 03/30/18 documented as of this encounter
--- OUTSIDE RECORDS SUMMARY | 2025-03-08 10:56 | XMS_ITS | Encounter Summary ---
Author Organization [facility] Address [address] [place] [address] Care Team Providers Care Upholsterer Apprentice Name Role Phone Tram Álvarez MD Primary Care Provider [phone] Encounter Details Date Type Department Care Team (Late st Contact Info) Description 10/14/[address] [facility] - Main Lab [address] [facility] [place] [address] Prince Le MD 38 [facility] [address] [place], [address] Type 2 diabetes mellitus without complications [...] V28) documented in this encounter Care Teams Upholsterer Apprentice Relationship Specialty Start Date End Date Trma Álvarez MD [address] [place] [address] , [address] [facility] Physician Associ D/B/A: [facility] [place], [place] PCP - General Internal Medicine 03/30/18 documented as of this encounter
--- OUTSIDE RECORDS SUMMARY | 2025-03-08 10:56 | XMS_ITS | Encounter Summary ---
Author Organization [facility] Address [address] [place] [address] Care Team Providers Care Director Of Supply Chain Name Role Phone Tram Álvarez MD Primary Care Provider [phone] Encounter Details Date Type Department Care Team (Late st Contact Info) Description 10/07/2024 Lab Requisition [facility] - Main Lab [address] [place] [address] Prince Le MD 38 [facility] [address] [place], [address] Type 2 diabetes mellitus without complications [...] AM EDT) WBC 17.5(H) 4.8 - 10.8 K/[facility] LAB HEMETOLOGY METHOD 10/07/2024 9:32 AM [facility] LAB RBC 3.80(L) 4.50 - 5.50 M/mcL LAB HEMETOLOGY METHOD 10/07/2024 9:32 AM [facility] LAB Hemoglobin 11.2(L) 13.5 - 17.5 g/dL LAB HEMETOLOGY METHOD 10/07/2024 9:32 AM [facility] LAB Hematocrit 35.1(L) 42.0 - 54.0 % LAB HEMETOLOGY METHOD 10/07/2024 9:32 AM [facility] LAB MCV 92.4 79.0 - 98.0 FL LAB HEMETOLOGY METHOD 10/07/2024 9:32 AM [facility] LAB MCH 29.5 27.0 - 32.0 pcg LAB HEMETOLOGY METHOD 10/07/2024 9:32 AM [facility] LAB MCHC 31.9(L) 32.0 - 37.0 g/dL LAB HEMETOLOGY METHOD 10/07/2024 9:32 AM [facility] LAB RDW 16.6(H) 11.0 - 15.0 % LAB HEMETOLOGY METHOD 10/07/2024 9:32 AM [facility] LAB Platelets 230 130 - 400 K/mcL LAB HEMETOLOGY METHOD 10/07/2024 9:32 AM [facility] LAB MPV 13.0(H) 7.0 - 11.0 FL LAB HEMETOLOGY METHOD 10/07/2024 9:32 AM [facility] LAB NRBC 0.0 <1.0 % LAB HEMETOLOGY METHOD 10/07/2024 9:32 AM [facility] LAB NRBC Absolute 0.00 <0.10 K/mcL LAB HEMETOLOGY METHOD 10/07/2024 9:32 AM [facility] LAB Neutrophils Relative 82.3 % LAB HEMETOLOGY METHOD 10/07/2024 9:32 AM [facility] LAB Lymphocytes Relative 10.0 % LAB HEMETOLOGY METHOD 10/07/2024 9:32 AM [facility] LAB Monocytes Relative 4.6 % LAB HEMETOLOGY METHOD 10/07/2024 9:32 AM [facility] LAB Eosinophils Relative 2.2 % LAB HEMETOLOGY METHOD 10/07/2024 9:32 AM [facility] LAB Basophils Relative 0.3 % LAB HEMETOLOGY METHOD 10/07/2024 9:32 AM [facility] LAB Immature Granulocytes Relative 0.6 % LAB HEMETOLOGY METHOD 10/07/2024 9:32 AM [facility] LAB Neutrophils Absolute 14.41(H) 1.50 - 7.00 K/mcL LAB HEMETOLOGY METHOD 10/07/2024 9:32 AM [facility] LAB Lymphocytes Absolute 1.74 1.00 - 5.00 K/mcL LAB HEMETOLOGY METHOD 10/07/2024 9:32 AM [facility] LAB Monocytes Absolute 0.80 0.20 - 1.00 K/mcL LAB HEMETOLOGY METHOD 10/07/2024 9:32 AM [facility] LAB Eosinophils Absolute 0.38 0.00 - 0.50 K/mcL LAB HEMETOLOGY METHOD 10/07/2024 9:32 AM [facility] LAB Basophils Absolute 0.05 0.00 - 0.20 K/mcL LAB HEMETOLOGY METHOD 10/07/2024 9:32 AM [facility] LAB Immature Granulocytes Absolute 0.10(H) 0.00 - 0.03 K/mcL LAB HEMETOLOGY METHOD 10/07/2024 9:32 AM [facility] LAB Blood Venous blood specimen / Unknown Venipuncture / Unknown 10/07/2024 5:18 AM EDT 10/07/2024 8:56 AM EDT us Prince Le MD LAB BLOOD ORDERABLES Final Resul t [facility] LAB [address] [place] [address], [place] [phone] * (ABNORMAL) Basic metabolic panel (10/07/2024 5:18 AM EDT) Sodium 132(L) 133 - 145 mmol/L LAB CHEMISTRY METHOD 10/07/2024 10:16 AM [facility] LAB Potassium 5.0 3.5 - 5.5 mmol/L LAB CHEMISTRY METHOD 10/07/2024 10:16 AM [facility] LAB Chloride 99 96 - 110 mmol/L LAB CHEMISTRY METHOD 10/07/2024 10:16 AM [facility] LAB CO2 22 21 - 32 mmol/L LAB CHEMISTRY METHOD 10/07/2024 10:16 AM [facility] LAB Anion Gap 11 3 - 11 LAB CHEMISTRY METHOD 10/07/2024 10:16 AM [facility] LAB Glucose 82 70 - 100 mg/dL LAB CHEMISTRY METHOD 10/07/2024 10:16 AM [facility] LAB BUN 54(H) 5 - 25 mg/dL LAB CHEMISTRY METHOD 10/07/2024 10:16 AM [facility] LAB Creatinine 2.44(H) 0.70 - 1.30 mg/dL LAB CHEMISTRY METHOD 10/07/2024 10:16 AM [facility] LAB eGFR 28(L) >=60 mL/min/1. 73m2 LAB CHEMISTRY METHOD 10/07/2024 10:16 AM [facility] LAB Comment:Calculation based on the Chronic Kidney Disease Epidemiology Collaboration (CKD-EPI) equation refit without adjustment for race. BUN/Creatinine Ratio 22.1 LAB CHEMISTRY METHOD 10/07/2024 10:16 AM T [facility] LAB Calcium 8.9 8.5 - 10.5 mg/dL LAB CHEMISTRY METHOD 10/07/2024 10:16 AM EDT [facility] LAB Blood Venous blood specimen / Unknown Venipuncture / Unknown 10/07/2024 5:18 AM EDT 10/07/2024 8:56 AM EDT us Prince Le MD LAB BLOOD ORDERABLES Final Resul t [facility] LAB [address] [place] [address], [place] [phone] documented in this encounter Visit Diagnoses Diagnosis Type 2 diabetes mellitus without complications (CMS/HCC V24, CMS/HCC V28) documented in this encounter Care Teams Director Of Supply Chain Relationship Specialty Start Date End Date Tram Álvarez MD 2 [facility] , [address] [place] [address] Physician Associ D/B/A: [facility] [place] PCP - General Internal Medicine 03/30/18 documented as of this encounter
--- OUTSIDE RECORDS SUMMARY | 2025-03-08 10:56 | XMS_ITS | Encounter Summary ---
Author Organization [facility] Address [address] [place] [address] Care Team Providers Care Day Light Relief Operator Name Role Phone Tram Álvarez MD Primary Care Provider [phone] Encounter Details Date Type Department Care Team (Late st Contact Info) Description 07/22/2024 Lab Requisition [facility] - Main Lab [address] [place] [address] Prince Le MD 38 [facility] [address] [place], [address] Type 2 diabetes mellitus without complications [...] mg/dL LAB CHEMISTRY METHOD 07/23/2024 10:47 AM [facility] LAB Blood Venous blood specimen / Unknown Venipuncture / Unknown 07/23/2024 6:52 AM EST 07/23/2024 9:26 AM EST us Prince Le MD LAB BLOOD ORDERABLES Final Resul t [facility] LAB [address] [place] [address], * (ABNORMAL) Comprehensive metabolic panel (07/23/2024 6:52 AM EST) Sodium 137 133 - 145 mmol/L LAB CHEMISTRY METHOD 07/23/2024 10:47 AM [facility] LAB Potassium 5.3 3.5 - 5.5 mmol/L LAB CHEMISTRY METHOD 07/23/2024 10:47 AM [facility] LAB Chloride 102 96 - 110 mmol/L LAB CHEMISTRY METHOD 07/23/2024 10:47 AM [facility] LAB CO2 28 21 - 32 mmol/L LAB CHEMISTRY METHOD 07/23/2024 10:47 AM [facility] LAB Anion Gap 7 3 - 11 LAB CHEMISTRY METHOD 07/23/2024 10:47 AM [facility] LAB Glucose 78 70 - 100 mg/dL LAB CHEMISTRY METHOD 07/23/2024 10:47 AM [facility] LAB BUN 39(H) 5 - 25 mg/dL LAB CHEMISTRY METHOD 07/23/2024 10:47 AM [facility] LAB Creatinine 1.58(H) 0.70 - 1.30 mg/dL LAB CHEMISTRY METHOD 07/23/2024 10:47 AM [facility] LAB eGFR 47(L) >=60 mL/min/1. 73m2 LAB CHEMISTRY METHOD 07/23/2024 10:47 AM [facility] LAB Comment:Calculation based on the Chronic Kidney Disease Epidemiology Collaboration (CKD-EPI) equation refit without adjustment for race. BUN/Creatinine Ratio 24.7 LAB CHEMISTRY METHOD 07/23/2024 10:47 AM [facility] LAB Calcium 9.5 8.5 - 10.5 mg/dL LAB CHEMISTRY METHOD 07/23/2024 10:47 AM [facility] LAB AST (SGOT) 25 10 - 42 unit/L LAB CHEMISTRY METHOD 07/23/2024 10:47 AM [facility] LAB ALT (SGPT) 26 10 - 60 unit/L LAB CHEMISTRY METHOD 07/23/2024 10:47 AM [facility] LAB Alkaline Phosphatase 68 42 - 121 unit/L LAB CHEMISTRY METHOD 07/23/2024 10:47 AM [facility] LAB Total Protein 6.9 6.0 - 8.0 g/dL LAB CHEMISTRY METHOD 07/23/2024 10:47 AM [facility] LAB Albumin 3.5 3.2 - 5.0 g/dL LAB CHEMISTRY METHOD 07/23/2024 10:47 AM [facility] LAB Total Bilirubin 0.4 0.0 - 1.4 mg/dL LAB CHEMISTRY METHOD 07/23/2024 10:47 AM [facility] LAB Blood Venous blood specimen / Unknown Venipuncture / Unknown 07/23/2024 6:52 AM EST 07/23/2024 9:26 AM EST us Prince Le MD LAB BLOOD ORDERABLES Final Resul t [facility] LAB [address] [place] [address], * (ABNORMAL) Complete blood count (07/23/2024 6:52 AM EST) WBC 9.2 4.8 - 10.8 K/mcL LAB HEMETOLOGY METHOD 07/23/2024 10:13 AM EST [facility] LAB RBC 4.90 4.50 - 5.50 M/mcL LAB HEMETOLOGY METHOD 07/23/2024 10:13 AM [facility] LAB Hemoglobin 13.6 13.5 - 17.5 g/dL LAB HEMETOLOGY METHOD 07/23/2024 10:13 AM [facility] LAB Hematocrit 41.2(L) 42.0 - 54.0 % LAB HEMETOLOGY METHOD 07/23/2024 10:13 AM [facility] LAB MCV 83.7 79.0 - 98.0 FL LAB HEMETOLOGY METHOD 07/23/2024 10:13 AM [facility] LAB MCH 27.6 27.0 - 32.0 pcg LAB HEMETOLOGY METHOD 07/23/2024 10:13 AM [facility] LAB MCHC 33.0 32.0 - 37.0 g/dL LAB HEMETOLOGY METHOD 07/23/2024 10:13 AM [facility] LAB RDW 19.0(H) 11.0 - 15.0 % LAB HEMETOLOGY METHOD 07/23/2024 10:13 AM [facility] LAB Platelets 364 130 - 400 K/mcL LAB HEMETOLOGY METHOD 07/23/2024 10:13 AM [facility] LAB MPV 12.2(H) 7.0 - 11.0 FL LAB HEMETOLOGY METHOD 07/23/2024 10:13 AM [facility] LAB NRBC 0.0 <1.0 % LAB HEMETOLOGY METHOD 07/23/2024 10:13 AM [facility] LAB NRBC Absolute 0.00 <0.10 K/mcL LAB HEMETOLOGY METHOD 07/23/2024 10:13 AM [facility] LAB Blood Venous blood specimen / Unknown Venipuncture / Unknown 07/23/2024 6:52 AM EST 07/23/2024 9:26 AM EST us Prince Le MD LAB BLOOD ORDERABLES Final Resul t [facility]) [facility] [address] [place] [address], documented in this encounter Visit Diagnoses Diagnosis Type 2 diabetes mellitus without complications (CMS/HCC V24, CMS/HCC V28) documented in this encounter Care Teams Day Light Relief Operator Relationship Specialty Start Date End Date Tram Álvarez MD 2 [facility] , [address] [facility] Physician Associ D/B/A: [facility] [place], [place] PCP - General Internal Medicine 03/30/18 documented as of this encounter
--- OUTSIDE RECORDS SUMMARY | 2025-03-08 10:56 | XMS_ITS | Encounter Summary ---
Author Organization [facility] Address [address] [place] [address] Care Team Providers Care Glass Sander Name Role Phone Tram Álvarez MD Primary Care Provider Encounter Details Date Type Department Care Team (Late st Contact Info) Description 09/02/2024 Lab Requisition [facility] - Main Lab [address] [place] [address] Prince Le MD 38 [facility] [address] [place], [address] Type 2 diabetes mellitus without complications [...] mg/dL LAB CHEMISTRY METHOD 09/03/2024 10:05 AM [facility] LAB Blood Venous blood specimen / Unknown Venipuncture / Unknown 09/03/2024 6:35 AM EST 09/03/2024 7:52 AM EST us Prince Le MD LAB BLOOD ORDERABLES Final Resul t [facility] [address] [place] [address], * (ABNORMAL) Comprehensive metabolic panel (09/03/2024 6:35 AM EST) Sodium 138 133 - 145 mmol/L LAB CHEMISTRY METHOD 09/03/2024 9:59 AM [facility] LAB Potassium 4.2 3.5 - 5.5 mmol/L LAB CHEMISTRY METHOD 09/03/2024 9:59 AM [facility] LAB Chloride 105 96 - 110 mmol/L LAB CHEMISTRY METHOD 09/03/2024 9:59 AM [facility] LAB CO2 28 21 - 32 mmol/L LAB CHEMISTRY METHOD 09/03/2024 9:59 AM [facility] LAB Anion Gap 5 3 - 11 LAB CHEMISTRY METHOD 09/03/2024 9:59 AM [facility] LAB Glucose 120(H) 70 - 100 mg/dL LAB CHEMISTRY METHOD 09/03/2024 9:59 AM [facility] LAB BUN 23 5 - 25 mg/dL LAB CHEMISTRY METHOD 09/03/2024 9:59 AM [facility] LAB Creatinine 0.88 0.70 - 1.30 mg/dL LAB CHEMISTRY METHOD 09/03/2024 9:59 AM [facility] LAB eGFR 94 >=60 mL/min/1. 73m2 LAB CHEMISTRY METHOD 09/03/2024 9:59 AM [facility] LAB Comment:Calculation based on the Chronic Kidney Disease Epidemiology Collaboration (CKD-EPI) equation refit without adjustment for race. BUN/Creatinine Ratio 26.1 LAB CHEMISTRY METHOD 09/03/2024 9:59 AM [facility] LAB Calcium 9.1 8.5 - 10.5 mg/dL LAB CHEMISTRY METHOD 09/03/2024 9:59 AM [facility] LAB AST (SGOT) 23 10 - 42 unit/L LAB CHEMISTRY METHOD 09/03/2024 9:59 AM [facility] LAB ALT (SGPT) 29 10 - 60 unit/L LAB CHEMISTRY METHOD 09/03/2024 9:59 AM [facility] LAB Alkaline Phosphatase 59 42 - 121 unit/L LAB CHEMISTRY METHOD 09/03/2024 9:59 AM [facility] LAB Total Protein 5.9(L) 6.0 - 8.0 g/dL LAB CHEMISTRY METHOD 09/03/2024 9:59 AM [facility] LAB Albumin 3.1(L) 3.2 - 5.0 g/dL LAB CHEMISTRY METHOD 09/03/2024 9:59 AM [facility] LAB Total Bilirubin 0.4 0.0 - 1.4 mg/dL LAB CHEMISTRY METHOD 09/03/2024 9:59 AM [facility] LAB Blood Venous blood specimen / Unknown Venipuncture / Unknown 09/03/2024 6:35 AM EST 09/03/2024 7:52 AM EST us Prince Le MD LAB BLOOD ORDERABLES Final Resul t [facility] LAB [address] [place] [address], * (ABNORMAL) Complete blood count (09/03/2024 6:35 AM EST) WBC 9.2 4.8 - 10.8 K/mcL LAB HEMETOLOGY METHOD 09/03/2024 8:43 AM [facility] LAB RBC 3.70(L) 4.50 - 5.50 M/mcL LAB HEMETOLOGY METHOD 09/03/2024 8:43 AM [facility] LAB Hemoglobin 10.8(L) 13.5 - 17.5 g/dL LAB HEMETOLOGY METHOD 09/03/2024 8:43 AM [facility] LAB Hematocrit 34.4(L) 42.0 - 54.0 % LAB HEMETOLOGY METHOD 09/03/2024 8:43 AM [facility] LAB MCV 93.5 79.0 - 98.0 FL LAB HEMETOLOGY METHOD 09/03/2024 8:43 AM [facility] LAB MCH 29.3 27.0 - 32.0 pcg LAB HEMETOLOGY METHOD 09/03/2024 8:43 AM [facility] LAB MCHC 31.4(L) 32.0 - 37.0 g/dL LAB HEMETOLOGY METHOD 09/03/2024 8:43 AM [facility] LAB RDW 20.0(H) 11.0 - 15.0 % LAB HEMETOLOGY METHOD 09/03/2024 8:43 AM [facility] LAB Platelets 333 130 - 400 K/mcL LAB HEMETOLOGY METHOD 09/03/2024 8:43 AM [facility] LAB MPV 12.3(H) 7.0 - 11.0 FL LAB HEMETOLOGY METHOD 09/03/2024 8:43 AM [facility] LAB NRBC 0.0 <1.0 % LAB HEMETOLOGY METHOD 09/03/2024 8:43 AM [facility] LAB NRBC Absolute 0.00 <0.10 K/mcL LAB HEMETOLOGY METHOD 09/03/2024 8:43 AM [facility] LAB Blood Venous blood specimen / Unknown Venipuncture / Unknown 09/03/2024 6:35 AM EST 09/03/2024 7:52 AM EST us Prince Le MD LAB BLOOD ORDERABLES Final Resul t [facility] ([facility]) [facility] [address] [place] [address], documented in this encounter Visit Diagnoses Diagnosis Type 2 diabetes mellitus without complications (CMS/HCC V24, CMS/HCC V28) documented in this encounter Care Teams Glass Sander Relationship Specialty Start Date End Date Tram Álvarez MD 2 [facility] , [address] [facility] Physician Associ D/B/A: [facility] JAS Duque PCP - General Internal Medicine 03/30/18 documented as of this encounter
--- OUTSIDE RECORDS SUMMARY | 2025-03-08 10:56 | XMS_ITS | Encounter Summary ---
Author Organization [facility] Address [address] [place] [address] Care Team Providers Care Chemistry Technical Officer Name Role Phone Tram Álvarez MD Primary Care Provider [phone] Encounter Details Date Type Department Care Team (Late st Contact Info) Description 07/16/2024 Lab Requisition [facility] - Main Lab [address] [place] [address] Prince Le MD 38 [facility] [address] [place], [address] Type 2 diabetes mellitus without complications [...] mg/dL LAB CHEMISTRY METHOD 07/16/2024 12:50 PM [facility] LAB Blood Venous blood specimen / Unknown Venipuncture / Unknown 07/16/2024 8:00 AM EST 07/16/2024 11:21 AM EST us Prince Le MD LAB BLOOD ORDERABLES Final Resul t [facility] [address] [place] [address], [place] [phone] * (ABNORMAL) Comprehensive metabolic panel (07/16/2024 8:00 AM EST) Sodium 137 133 - 145 mmol/L LAB CHEMISTRY METHOD 07/16/2024 1:13 PM [facility] LAB Potassium 5.1 3.5 - 5.5 mmol/L LAB CHEMISTRY METHOD 07/16/2024 1:13 PM [facility] LAB Chloride 103 96 - 110 mmol/L LAB CHEMISTRY METHOD 07/16/2024 1:13 PM [facility] LAB CO2 27 21 - 32 mmol/L LAB CHEMISTRY METHOD 07/16/2024 1:13 PM [facility] LAB Anion Gap 7 3 - 11 LAB CHEMISTRY METHOD 07/16/2024 1:13 PM [facility] LAB Glucose 40(L) 70 - 100 mg/dL LAB CHEMISTRY METHOD 07/16/2024 1:13 PM [facility] BUN 35(H) 5 - 25 mg/dL LAB CHEMISTRY METHOD 07/16/2024 1:13 PM [facility] LAB Creatinine 1.27 0.70 - 1.30 mg/dL LAB CHEMISTRY METHOD 07/16/2024 1:13 PM [facility] LAB eGFR 62 >=60 mL/min/1. 73m2 LAB CHEMISTRY METHOD 07/16/2024 1:13 PM [facility] LAB Comment:Calculation based on the Chronic Kidney Disease Epidemiology Collaboration (CKD-EPI) equation refit without adjustment for race. BUN/Creatinine Ratio 27.6 LAB CHEMISTRY METHOD 07/16/2024 1:13 PM [facility] LAB Calcium 9.0 8.5 - 10.5 mg/dL LAB CHEMISTRY METHOD 07/16/2024 1:13 PM [facility] LAB AST (SGOT) 18 10 - 42 unit/L LAB CHEMISTRY METHOD 07/16/2024 1:13 PM [facility] ALT (SGPT) 19 10 - 60 unit/L LAB CHEMISTRY METHOD 07/16/2024 1:13 PM [facility] LAB Alkaline Phosphatase 62 42 - 121 unit/L LAB CHEMISTRY METHOD 07/16/2024 1:13 PM [facility] LAB Total Protein 6.7 6.0 - 8.0 g/dL LAB CHEMISTRY METHOD 07/16/2024 1:13 PM [facility] LAB Albumin 3.5 3.2 - 5.0 g/dL LAB CHEMISTRY METHOD 07/16/2024 1:13 PM [facility] LAB Total Bilirubin 0.4 0.0 - 1.4 mg/dL LAB CHEMISTRY METHOD 07/16/2024 1:13 PM [facility] LAB Blood Venous blood specimen / Unknown Venipuncture / Unknown 07/16/2024 8:00 AM EST 07/16/2024 11:21 AM EST us Prince Le MD LAB BLOOD ORDERABLES Final Resul t [facility] LAB [address] [place] [address], * (ABNORMAL) Complete blood count (07/16/2024 8:00 AM EST) WBC 10.9(H) 4.8 - 10.8 K/mcL LAB HEMETOLOGY METHOD 07/16/2024 11:53 AM EST [facility] LAB RBC 4.90 4.50 - 5.50 M/mcL LAB HEMETOLOGY METHOD 07/16/2024 11:53 AM [facility] Hemoglobin 13.4(L) 13.5 - 17.5 g/dL LAB HEMETOLOGY METHOD 07/16/2024 11:53 AM [facility] LAB Hematocrit 41.6(L) 42.0 - 54.0 % LAB HEMETOLOGY METHOD 07/16/2024 11:53 AM [facility] LAB MCV 85.1 79.0 - 98.0 FL LAB HEMETOLOGY METHOD 07/16/2024 11:53 AM [facility] LAB MCH 27.4 27.0 - 32.0 pcg LAB HEMETOLOGY METHOD 07/16/2024 11:53 AM [facility] LAB MCHC 32.2 32.0 - 37.0 g/dL LAB HEMETOLOGY METHOD 07/16/2024 11:53 AM [facility] LAB RDW 18.3(H) 11.0 - 15.0 % LAB HEMETOLOGY METHOD 07/16/2024 11:53 AM [facility] LAB Platelets 413(H) 130 - 400 K/mcL LAB HEMETOLOGY METHOD 07/16/2024 11:53 AM [facility] LAB MPV 12.4(H) 7.0 - 11.0 FL LAB HEMETOLOGY METHOD 07/16/2024 11:53 AM [facility] LAB NRBC 0.0 <1.0 % LAB HEMETOLOGY METHOD 07/16/2024 11:53 AM [facility] LAB NRBC Absolute 0.00 <0.10 K/mcL LAB HEMETOLOGY METHOD 07/16/2024 11:53 AM [facility] LAB Blood Venous blood specimen / Unknown Venipuncture / Unknown 07/16/2024 8:00 AM EST 07/16/2024 11:21 AM EST us Prince Le MD LAB BLOOD ORDERABLES Final Resul t [facility]) [facility] [address] [place] [address], documented in this encounter Visit Diagnoses Diagnosis Type 2 diabetes mellitus without complications (CMS/HCC V24, CMS/HCC V28) documented in this encounter Care Teams Chemistry Technical Officer Relationship Specialty Start Date End Date Tram Álvarez MD 2 [facility] , [address] [facility] Physician Associ D/B/A: [facility] JAS Duque PCP - General Internal Medicine 03/30/18 documented as of this encounter
--- OUTSIDE RECORDS SUMMARY | 2025-03-08 10:56 | XMS_ITS | Encounter Summary ---
Author Organization [facility] Address [address] [place] [address] Care Team Providers Care Roller Leveler Name Role Phone Tram Álvarez MD Primary Care Provider [phone] Encounter Details Date Type Department Care Team (Late st Contact Info) Description 02/24/2025 Lab Requisition [facility] - Main Lab [address] [facility] [place] [address] Preeti Lujan MD [address] [phone] Essential (primary) hypertension Social History Tobacco Use [...] Associated Diagnosis Comments COMPLETE BLOOD COUNT Routine 02/24/2025 6:34 AM EDT Essential (primary) hypertension BASIC METABOLIC PANEL Routine 02/24/2025 6:34 AM EDT Essential (primary) hypertension documented in this encounter Results * (ABNORMAL) Basic metabolic panel (02/24/2025 6:34 AM EDT) Sodium 141 133 - 145 mmol/L LAB CHEMISTRY METHOD 02/24/2025 9:39 AM EDT [facility] Potassium 6.0(H) 3.5 - 5.5 mmol/L LAB CHEMISTRY METHOD 02/24/2025 9:39 AM EDT [facility] Chloride 110 96 - 110 mmol/L LAB CHEMISTRY METHOD 02/24/2025 9:39 AM [facility] CO2 27 21 - 32 mmol/L LAB CHEMISTRY METHOD 02/24/2025 9:39 AM [facility] Anion Gap 4 3 - 11 LAB CHEMISTRY METHOD 02/24/2025 9:39 AM [facility] Glucose 117(H) 70 - 100 mg/dL LAB CHEMISTRY METHOD 02/24/2025 9:39 AM [facility] BUN 27(H) 5 - 25 mg/dL LAB CHEMISTRY METHOD 02/24/2025 9:39 AM [facility] Creatinine 0.84 0.70 - 1.30 mg/dL LAB CHEMISTRY METHOD 02/24/2025 9:39 AM [facility] eGFR 94 >=60 mL/min/1. 73m2 LAB CHEMISTRY METHOD 02/24/2025 9:39 AM [facility] Comment:Calculation based on the Chronic Kidney Disease Epidemiology Collaboration (CKD-EPI) equation refit without adjustment for race. BUN/Creatinine Ratio 32.1 LAB CHEMISTRY METHOD 02/24/2025 9:39 AM [facility] Calcium 9.4 8.5 - 10.5 mg/dL LAB CHEMISTRY METHOD 02/24/2025 9:39 AM [facility] Blood Venous blood specimen / Unknown Venipuncture / Unknown 02/24/2025 6:34 AM EDT 02/24/2025 8:31 AM EDT us Preeti Lujan MD LAB BLOOD ORDERABLES Fin al Result [facility] [address] [place] [address], * (ABNORMAL) Complete blood count (02/24/2025 6:34 AM EDT) WBC 7.9 4.8 - 10.8 K/mcL LAB HEMETOLOGY METHOD 02/24/2025 9:35 AM [facility] RBC 3.90(L) 4.50 - 5.50 M/mcL LAB HEMETOLOGY METHOD 02/24/2025 9:35 AM [facility] Hemoglobin 11.0(L) 13.5 - 17.5 g/dL LAB HEMETOLOGY METHOD 02/24/2025 9:35 AM [facility] Hematocrit 36.9(L) 42.0 - 54.0 % LAB HEMETOLOGY METHOD 02/24/2025 9:35 AM [facility] MCV 95.3 79.0 - 98.0 FL LAB HEMETOLOGY METHOD 02/24/2025 9:35 AM [facility] MCH 28.4 27.0 - 32.0 pcg LAB HEMETOLOGY METHOD 02/24/2025 9:35 AM [facility] MCHC 29.8(L) 32.0 - 37.0 g/dL LAB HEMETOLOGY METHOD 02/24/2025 9:35 AM [facility] RDW 17.6(H) 11.0 - 15.0 % LAB HEMETOLOGY METHOD 02/24/2025 9:35 AM [facility] Platelets 287 130 - 400 K/mcL LAB HEMETOLOGY METHOD 02/24/2025 9:35 AM [facility] MPV 12.9(H) 7.0 - 11.0 FL LAB HEMETOLOGY METHOD 02/24/2025 9:35 AM [facility] NRBC 0.0 <1.0 % LAB HEMETOLOGY METHOD 02/24/2025 9:35 AM [facility] NRBC Absolute 0.00 <0.10 K/mcL LAB HEMETOLOGY METHOD 02/24/2025 9:35 AM EDT [facility] Blood Venous blood specimen / Unknown Venipuncture / Unknown 02/24/2025 6:34 AM EDT 02/24/2025 8:31 AM EDT us Preeti Lujan MD LAB BLOOD ORDERABLES Fin al Result [facility] [address] [place] [address], documented in this encounter Visit Diagnoses Diagnosis Essential (primary) hypertension Unspecified essential hypertension documented in this encounter Care Teams Roller Leveler Relationship Specialty Start Date End Date Tram Álvarez MD 2 [facility] , [address] Physician Associ D/B/A: [facility] [place], [place] PCP - General Internal Medicine 03/30/18 documented as of this encounter
--- OUTSIDE RECORDS SUMMARY | 2025-03-08 10:56 | XMS_ITS | Encounter Summary ---
Author Organization [facility] Address [address] [place] [address] Care Team Providers Care Continuous Process Coffee Roaster Name Role Phone Tram Álvarez MD Primary Care Provider [phone] Encounter Details Date Type Department Care Team (Late st Contact Info) Description 05/21/2024 Lab Requisition [facility] - Main Lab [address] [place] [address] Prince Le MD 38 [facility] [address] [place], [address] Essential (primary) hypertension Social History Tobacco [...] AM [facility] Comment:Calculation based on the Chronic Kidney Disease Epidemiology Collaboration (CKD-EPI) equation refit without adjustment for race. BUN/Creatinine Ratio 28.6 LAB CHEMISTRY METHOD 05/24/2024 9:02 AM [facility] Calcium 9.2 8.5 - 10.5 mg/dL LAB CHEMISTRY METHOD 05/24/2024 9:02 AM [facility] Blood Venous blood specimen / Unknown Venipuncture / Unknown 05/24/2024 6:00 AM EST 05/24/2024 7:45 AM EST us Prince Le MD LAB BLOOD ORDERABLES Final Resul t [facility] [address] [place] [address], * (ABNORMAL) Complete blood count (05/24/2024 6:00 AM EST) WBC 9.3 4.8 - 10.8 K/mcL LAB HEMETOLOGY METHOD 05/24/2024 9:03 AM [facility] RBC 4.90 4.50 - [...] 05/24/2024 9:03 AM [facility] NRBC Absolute 0.00 <0.10 K/mcL LAB HEMETOLOGY METHOD 05/24/2024 9:03 AM [facility] Blood Venous blood specimen / Unknown Venipuncture / Unknown 05/24/2024 6:00 AM EST 05/24/2024 7:45 AM EST us Prince Le MD LAB BLOOD ORDERABLES Final Resul t [facility] [address] [place] [address], [place] [phone] documented in this encounter Visit Diagnoses Diagnosis Essential (primary) hypertension Unspecified essential hypertension documented in this encounter Care Teams Continuous Process 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
--- OUTSIDE RECORDS SUMMARY | 2025-03-08 10:56 | XMS_ITS | Encounter Summary ---
Author Organization [facility] Address [address] [place] [address] Care Team Providers Care Civil Attorney Name Role Phone Tram Álvarez MD Primary Care Provider [phone] Encounter Details Date Type Department Care Team (Late st Contact Info) Description 05/14/2024 Lab Requisition [facility] - Main Lab [address] [place] [address] Prince Le MD 38 [facility] [address] [place], [address] Essential (primary) hypertension Social History Tobacco [...] LAB CHEMISTRY METHOD 05/17/2024 10:43 AM EST [facility] Potassium 4.5 3.5 - 5.5 mmol/L LAB CHEMISTRY METHOD 05/17/2024 10:43 AM EST [facility] Chloride 110 96 - 110 mmol/L LAB CHEMISTRY METHOD 05/17/2024 10:43 AM [facility] CO2 27 21 - 32 mmol/L LAB CHEMISTRY METHOD 05/17/2024 10:43 AM [facility] Anion Gap 6 3 - 11 LAB CHEMISTRY METHOD 05/17/2024 10:43 AM [facility] Glucose 99 70 - 100 mg/dL LAB CHEMISTRY METHOD 05/17/2024 10:43 AM [facility] BUN 37(H) 5 - 25 mg/dL LAB CHEMISTRY METHOD 05/17/2024 10:43 AM [facility] Creatinine 1.29 0.70 - 1.30 mg/dL LAB CHEMISTRY METHOD 05/17/2024 10:43 AM [facility] eGFR 60 >=60 mL/min/1. 73m2 LAB CHEMISTRY METHOD 05/17/2024 10:43 AM [facility] Comment:Calculation based on the Chronic Kidney Disease Epidemiology Collaboration (CKD-EPI) equation refit without adjustment for race. BUN/Creatinine Ratio 28.7 LAB CHEMISTRY METHOD 05/17/2024 10:43 AM [facility] Calcium 9.3 8.5 - 10.5 mg/dL LAB CHEMISTRY METHOD 05/17/2024 10:43 AM [facility] Blood Venous blood specimen / Unknown Venipuncture / Unknown 05/17/2024 6:41 AM EST 05/17/2024 9:49 AM EST us Prince Le MD LAB BLOOD ORDERABLES Final Resul t [facility] [address] [place] [address], * (ABNORMAL) Complete blood count (05/17/2024 6:41 AM EST) WBC 9.0 4.8 - 10.8 K/mcL LAB HEMETOLOGY METHOD 05/17/2024 10:23 AM [facility] RBC 5.50 4.50 - 5.50 M/mcL LAB HEMETOLOGY METHOD 05/17/2024 10:23 AM [facility] Hemoglobin 15.0 13.5 - 17.5 g/dL LAB HEMETOLOGY METHOD 05/17/2024 10:23 AM [facility] Hematocrit 48.3 42.0 - 54.0 % LAB HEMETOLOGY METHOD 05/17/2024 10:23 AM [facility] MCV 88.0 79.0 - 98.0 FL LAB HEMETOLOGY METHOD 05/17/2024 10:23 AM [facility] MCH 27.3 27.0 - 32.0 pcg LAB HEMETOLOGY METHOD 05/17/2024 10:23 AM [facility] MCHC 31.1(L) 32.0 - 37.0 g/dL LAB HEMETOLOGY METHOD 05/17/2024 10:23 AM [facility] RDW 16.6(H) 11.0 - 15.0 % LAB HEMETOLOGY METHOD 05/17/2024 10:23 AM [facility] Platelets 240 130 - 400 K/mcL LAB HEMETOLOGY METHOD 05/17/2024 10:23 AM [facility] MPV 13.4(H) 7.0 - 11.0 FL LAB HEMETOLOGY METHOD 05/17/2024 10:23 AM [facility] NRBC 0.0 <1.0 % LAB HEMETOLOGY METHOD 05/17/2024 10:23 AM [facility] NRBC Absolute 0.00 <0.10 K/mcL LAB HEMETOLOGY METHOD 05/17/2024 10:23 AM [facility] Blood Venous blood specimen / Unknown Venipuncture / Unknown 05/17/2024 6:41 AM EST 05/17/2024 9:51 AM EST us Prince Le MD LAB BLOOD ORDERABLES Final Resul t [facility] [address] [place] [address], [place] [phone] documented in this encounter Visit Diagnoses Diagnosis Essential (primary) hypertension Unspecified essential hypertension documented in this encounter Care Teams Civil Attorney Relationship Specialty Start Date End Date Tram Álvarez MD 2 [facility] , [address] [facility] Physician Associ D/B/A: [facility] [place], [place] PCP - General Internal Medicine 03/30/18 documented as of this encounter
--- OUTSIDE RECORDS SUMMARY | 2025-03-08 10:56 | XMS_ITS | Encounter Summary ---
Author Organization [facility] Address [address] [place] [address] Care Team Providers Care Senior Tech Manufacturing Engineering Name Role Phone Tram Álvarez MD Primary Care Provider [phone] Encounter Details Date Type Department Care Team (Late st Contact Info) Description 09/09/2024 Lab Requisition [facility] - Main Lab 299 [facility] [place] [address] Prince Le MD 38 [facility] [address] [place], [address] Type 2 diabetes mellitus without complications [...] documented in this encounter Care Teams Senior Tech Manufacturing Engineering Relationship Specialty Start Date End Date Tram Álvarez MD [address] [place] [address] , [address] [facility] Physician Associ D/B/A: [facility] [place], [place] PCP - General Internal Medicine 03/30/18 documented as of this encounter
--- OUTSIDE RECORDS SUMMARY | 2025-03-08 10:57 | XMS_ITS | Clinical Summary ---
Author Organization [facility] Address [address] [place] [address] Care Team Providers Care Manager Gallery Name Role Phone Tram Royal MD Primary [...] - PCV) 10/04/2020 07/09/2010 Influenza Vaccine (#1) 2025 2, 03/22/2011, 07/09/2010 RSV Adult > 60+ Yrs or (1 - 1-dose 75+ series) 10/04/2030 Hepatitis B Vaccines Aged Out No long er eligible based on patient's age to complete this topic RSV Ped < 20 months Aged Out No longe r eligible based on patient's age to complete this topic Care Teams Manager Gallery Relationship Specialty Start Date End Date Tram Royal MD 2 [facility] , [address] [facility] Physician Associ D/B/A: [facility] [place] [address] PCP - General Internal Medicine 03/30/18
--- OUTSIDE RECORDS SUMMARY | 2025-03-08 10:57 | XMS_ITS | Encounter Summary ---
Author Organization [facility] Address [address] [place] [address] Care Team Providers Care Switchboard Installer Name Role Phone Tram Álvarez MD Primary Care Provider [phone] Encounter Details Date Type Department Care Team (Late st Contact Info) Description 09/16/2024 Lab Requisition [facility] - Main Lab [address] [place] [address] Prince Le MD 38 [facility] [address] [place], [address] Type 2 diabetes mellitus without complications [...] mg/dL LAB CHEMISTRY METHOD 09/17/2024 11:32 AM [facility] Blood Venous blood specimen / Unknown Venipuncture / Unknown 09/17/2024 8:06 AM EDT 09/17/2024 10:22 AM EDT us Prince Le MD LAB BLOOD ORDERABLES Final Resul t [facility] [address] [place] [address], [place] [phone] * (ABNORMAL) Comprehensive metabolic panel (09/17/2024 8:06 AM EDT) Sodium 139 133 - 145 mmol/L LAB CHEMISTRY METHOD 09/17/2024 11:27 AM [facility] Potassium 4.6 3.5 - 5.5 mmol/L LAB CHEMISTRY METHOD 09/17/2024 11:27 AM [facility] Chloride 103 96 - 110 mmol/L LAB CHEMISTRY METHOD 09/17/2024 11:27 AM [facility] CO2 30 21 - 32 mmol/L LAB CHEMISTRY METHOD 09/17/2024 11:27 AM [facility] Anion Gap 6 3 - 11 LAB CHEMISTRY METHOD 09/17/2024 11:27 AM [facility] Glucose 93 70 - 100 mg/dL LAB CHEMISTRY METHOD 09/17/2024 11:27 AM [facility] BUN 21 5 - 25 mg/dL LAB CHEMISTRY METHOD 09/17/2024 11:27 AM [facility] Creatinine 0.97 0.70 - 1.30 mg/dL LAB CHEMISTRY METHOD 09/17/2024 11:27 AM [facility] eGFR 85 >=60 mL/min/1. 73m2 LAB CHEMISTRY METHOD 09/17/2024 11:27 AM [facility] Comment:Calculation based on the Chronic Kidney Disease Epidemiology Collaboration (CKD-EPI) equation refit without adjustment for race. BUN/Creatinine Ratio 21.6 LAB CHEMISTRY METHOD 09/17/2024 11:27 AM [facility] Calcium 9.0 8.5 - 10.5 mg/dL LAB CHEMISTRY METHOD 09/17/2024 11:27 AM [facility] AST (SGOT) 20 10 - 42 unit/L LAB CHEMISTRY METHOD 09/17/2024 11:27 AM [facility] ALT (SGPT) 19 10 - 60 unit/L LAB CHEMISTRY METHOD 09/17/2024 11:27 AM [facility] Alkaline Phosphatase 67 42 - 121 unit/L LAB CHEMISTRY METHOD 09/17/2024 11:27 AM [facility] Total Protein 6.1 6.0 - 8.0 g/dL LAB CHEMISTRY METHOD 09/17/2024 11:27 AM [facility] Albumin 2.8(L) 3.2 - 5.0 g/dL LAB CHEMISTRY METHOD 09/17/2024 11:27 AM [facility] Total Bilirubin 0.4 0.0 - 1.4 mg/dL LAB CHEMISTRY METHOD 09/17/2024 11:27 AM [facility] Blood Venous blood specimen / Unknown Venipuncture / Unknown 09/17/2024 8:06 AM EDT 09/17/2024 10:22 AM EDT us Prince Le MD LAB BLOOD ORDERABLES Final Resul t [facility] [address] [place] [address], * (ABNORMAL) Complete blood count (09/17/2024 8:06 AM EDT) WBC 9.2 4.8 - 10.8 K/mcL LAB HEMETOLOGY METHOD 09/17/2024 10:35 AM [facility] RBC 3.80(L) 4.50 - 5.50 M/mcL LAB HEMETOLOGY METHOD 09/17/2024 10:35 AM [facility] Hemoglobin 11.3(L) 13.5 - 17.5 g/dL LAB HEMETOLOGY METHOD 09/17/2024 10:35 AM [facility] Hematocrit 35.1(L) 42.0 - 54.0 % LAB HEMETOLOGY METHOD 09/17/2024 10:35 AM [facility] MCV 93.6 79.0 - 98.0 FL LAB HEMETOLOGY METHOD 09/17/2024 10:35 AM [facility] MCH 30.1 27.0 - 32.0 pcg LAB HEMETOLOGY METHOD 09/17/2024 10:35 AM [facility] MCHC 32.2 32.0 - 37.0 g/dL LAB HEMETOLOGY METHOD 09/17/2024 10:35 AM [facility] RDW 17.5(H) 11.0 - 15.0 % LAB HEMETOLOGY METHOD 09/17/2024 10:35 AM [facility] Platelets 352 130 - 400 K/mcL LAB HEMETOLOGY METHOD 09/17/2024 10:35 AM [facility] MPV 11.5(H) 7.0 - 11.0 FL LAB HEMETOLOGY METHOD 09/17/2024 10:35 AM [facility] NRBC 0.0 <1.0 % LAB HEMETOLOGY METHOD 09/17/2024 10:35 AM [facility] NRBC Absolute 0.00 <0.10 K/mcL LAB HEMETOLOGY METHOD 09/17/2024 10:35 AM [facility] Blood Venous blood specimen / Unknown Venipuncture / Unknown 09/17/2024 8:06 AM EDT 09/17/2024 10:22 AM EDT us Prince Le MD LAB BLOOD ORDERABLES Final Resul t [facility] ([facility]) [facility] [address] [place] [address], documented in this encounter Visit Diagnoses Diagnosis Type 2 diabetes mellitus without complications (CMS/HCC V24, CMS/HCC V28) documented in this encounter Care Teams Switchboard Installer Relationship Specialty Start Date End Date Tram Álvarez MD 2 [facility] , [address] Physician Associ D/B/A: [facility] [place], [place] PCP - General Internal Medicine 03/30/18 documented as of this encounter
--- OUTSIDE RECORDS SUMMARY | 2025-03-08 10:57 | XMS_ITS | Encounter Summary ---
Author Organization [facility] Address [address] [place] [address] Care Team Providers Care Ribbon Hand Name Role Phone Tram Álvarez MD Primary Care Provider [phone] Encounter Details Date Type Department Care Team (Late st Contact Info) Description 11/09/2024 Lab Requisition [facility] - Main Lab 299 [facility] [email or web address] [address] Prince Le MD 38 [facility] 204 [place], [address] Hyperlipidemia, unspecified Social History Tobacco Use Types Packs/Day Years Used Date Smoking Tobacco: Never Assessed Sex and Gender Information Value Date Recorded Sex Assigned at Not on file Legal Sex Male 1:13 PM EST Gender Identity Not on file Sexual Orientation Not on file documented as of this encounter Plan of Treatment Not on file documented as of this encounter Visit Diagnoses Diagnosis Hyperlipidemia, unspecified documented in this encounter Care Teams Ribbon Hand Relationship Specialty Start Date End Date Tram Álvarez MD [address] [place] [address] , [address] [facility] Physician Associ D/B/A: [facility] [place], [place] PCP - General Internal Medicine 03/30/18 documented as of this encounter
--- OUTSIDE RECORDS SUMMARY | 2025-03-08 10:57 | XMS_ITS | Encounter Summary ---
Author Organization [facility] Address [address] [place] [address] Care Team Providers Care Bitumen Plant Operator Name Role Phone Tram Álvarez MD Primary Care Provider [phone] Encounter Details Date Type Department Care Team (Late st Contact Info) Description 09/30/2024 Lab Requisition [facility] - Main Lab [address] [place] [address] Prince Le MD 38 [facility] 204 [place], [address] Type 2 diabetes mellitus without complications [...] mg/dL LAB CHEMISTRY METHOD 10/01/2024 11:57 AM [facility] Blood Venous blood specimen / Unknown Venipuncture / Unknown 10/01/2024 8:01 AM EDT 10/01/2024 10:24 AM EDT us Prince Le MD LAB BLOOD ORDERABLES Final Resul t [facility] [address] [place] [address], [place] [phone] * (ABNORMAL) Comprehensive metabolic panel (10/01/2024 8:01 AM EDT) Sodium 134 133 - 145 mmol/L LAB CHEMISTRY METHOD 10/01/2024 12:02 PM [facility] Potassium 4.7 3.5 - 5.5 mmol/L LAB CHEMISTRY METHOD 10/01/2024 12:02 PM [facility] Chloride 101 96 - 110 mmol/L LAB CHEMISTRY METHOD 10/01/2024 12:02 PM [facility] CO2 27 21 - 32 mmol/L LAB CHEMISTRY METHOD 10/01/2024 12:02 PM [facility] Anion Gap 6 3 - 11 LAB CHEMISTRY METHOD 10/01/2024 12:02 PM [facility] Glucose 79 70 - 100 mg/dL LAB CHEMISTRY METHOD 10/01/2024 12:02 PM [facility] BUN 40(H) 5 - 25 mg/dL LAB CHEMISTRY METHOD 10/01/2024 12:02 PM [facility] Creatinine 1.55(H) 0.70 - 1.30 mg/dL LAB CHEMISTRY METHOD 10/01/2024 12:02 PM [facility] eGFR 48(L) >=60 mL/min/1. 73m2 LAB CHEMISTRY METHOD 10/01/2024 12:02 PM [facility] Comment:Calculation based on the Chronic Kidney Disease Epidemiology Collaboration (CKD-EPI) equation refit without adjustment for race. BUN/Creatinine Ratio 25.8 LAB CHEMISTRY METHOD 10/01/2024 12:02 PM [facility] Calcium 8.8 8.5 - 10.5 mg/dL LAB CHEMISTRY METHOD 10/01/2024 12:02 PM [facility] AST (SGOT) 63(H) 10 - 42 unit/L LAB CHEMISTRY METHOD 10/01/2024 12:02 PM [facility] ALT (SGPT) 30 10 - 60 unit/L LAB CHEMISTRY METHOD 10/01/2024 12:02 PM [facility] Alkaline Phosphatase 40(L) 42 - 121 unit/L LAB CHEMISTRY METHOD 10/01/2024 12:02 PM [facility] Total Protein 6.0 6.0 - 8.0 g/dL LAB CHEMISTRY METHOD 10/01/2024 12:02 PM [facility] Albumin 2.9(L) 3.2 - 5.0 g/dL LAB CHEMISTRY METHOD 10/01/2024 12:02 PM [facility] Total Bilirubin 0.4 0.0 - 1.4 mg/dL LAB CHEMISTRY METHOD 10/01/2024 12:02 PM [facility] Blood Venous blood specimen / Unknown Venipuncture / Unknown 10/01/2024 8:01 AM EDT 10/01/2024 10:24 AM EDT us Prince Le MD LAB BLOOD ORDERABLES Final Resul t [facility] [address] [place] [address], * (ABNORMAL) Complete blood count (10/01/2024 8:01 AM EDT) WBC 7.3 4.8 - 10.8 K/mcL LAB HEMETOLOGY METHOD 10/01/2024 11:11 AM [facility] RBC 4.00(L) 4.50 - 5.50 M/mcL LAB HEMETOLOGY METHOD 10/01/2024 11:11 AM [facility] Hemoglobin 11.8(L) 13.5 - 17.5 g/dL LAB HEMETOLOGY METHOD 10/01/2024 11:11 AM [facility] Hematocrit 37.0(L) 42.0 - 54.0 % LAB HEMETOLOGY METHOD 10/01/2024 11:11 AM [facility] MCV 93.7 79.0 - 98.0 FL LAB HEMETOLOGY METHOD 10/01/2024 11:11 AM [facility] MCH 29.9 27.0 - 32.0 pcg LAB HEMETOLOGY METHOD 10/01/2024 11:11 AM [facility] MCHC 31.9(L) 32.0 - 37.0 g/dL LAB HEMETOLOGY METHOD 10/01/2024 11:11 AM [facility] RDW 16.4(H) 11.0 - 15.0 % LAB HEMETOLOGY METHOD 10/01/2024 11:11 AM [facility] Platelets 416(H) 130 - 400 K/mcL LAB HEMETOLOGY METHOD 10/01/2024 11:11 AM [facility] MPV 11.3(H) 7.0 - 11.0 FL LAB HEMETOLOGY METHOD 10/01/2024 11:11 AM [facility] NRBC 0.0 <1.0 % LAB HEMETOLOGY METHOD 10/01/2024 11:11 AM [facility] NRBC Absolute 0.00 <0.10 K/mcL LAB HEMETOLOGY METHOD 10/01/2024 11:11 AM [facility] Blood Venous blood specimen / Unknown Venipuncture / Unknown 10/01/2024 8:01 AM EDT 10/01/2024 10:24 AM EDT us Prince Le MD LAB BLOOD ORDERABLES [facility] [address] [place] [address], documented in this encounter Visit Diagnoses Diagnosis Type 2 diabetes mellitus without complications (CMS/HCC V24, CMS/HCC V28) documented in this encounter Care Teams Bitumen Plant Operator Relationship Specialty Start Date End Date Tram Álvarez MD 2 [facility] , [address] Physician Associ D/B/A: [facility] [place], [place] PCP - General Internal Medicine 03/30/18 documented as of this encounter
--- OUTSIDE RECORDS SUMMARY | 2025-03-08 10:57 | XMS_ITS | Encounter Summary ---
Author Organization [facility] Address [address] [place] [address] Care Team Providers Care Mainspring Strip Inspector Name Role Phone Tram Álvarez MD Primary Care Provider [phone] Encounter Details Date Type Department Care Team (Late st Contact Info) Description 11/18/2024 Lab Requisition [facility] - Main Lab [address] [facility] [place] [address] Preeti Lujan MD [address] [phone] Chronic kidney disease, stage 3 unspecified (CMS/HCC V24, CMS/HCC V28); Spinal stenosis, lumbar region without neurogenic claudication Social History Tobacco Use Types Packs/Day Years [...] Associated Diagnosis Comments BASIC METABOLIC PANEL Routine 11/18/2024 6:05 AM EDT Chronic kidney disease, stage 3 unspecified (CMS/HCC V24, CMS/HCC V28) Spinal stenosis, lumbar region without neurogenic claudication documented in this encounter Results * (ABNORMAL) Basic metabolic panel (11/18/2024 6:05 AM EDT) Sodium 143 133 - 145 mmol/L LAB CHEMISTRY METHOD 11/18/2024 10:12 AM EDT [facility] Potassium 4.6 3.5 - 5.5 mmol/L LAB CHEMISTRY METHOD 11/18/2024 10:[address] [facility] Chloride 112(H) 96 - 110 mmol/L LAB CHEMISTRY METHOD 11/18/2024 10:[address] [facility] CO2 25 21 - 32 mmol/L LAB CHEMISTRY METHOD 11/18/2024 10:[address] [facility] Anion Gap 6 3 - 11 LAB CHEMISTRY METHOD 11/18/2024 10:[address] [facility] Glucose 105(H) 70 - 100 mg/dL LAB CHEMISTRY METHOD 11/18/2024 10:[address] [facility] BUN 26(H) 5 - 25 mg/dL LAB CHEMISTRY METHOD 11/18/2024 10:[address] [facility] Creatinine 0.63(L) 0.70 - 1.30 mg/dL LAB CHEMISTRY METHOD 11/18/2024 10:[address] [facility] eGFR 103 >=60 mL/min/1. 73m2 LAB CHEMISTRY METHOD 11/18/2024 10:[address] [facility] Comment:Calculation based on the Chronic Kidney Disease Epidemiology Collaboration (CKD-EPI) equation refit without adjustment for race. BUN/Creatinine Ratio 41.3 LAB CHEMISTRY METHOD 11/18/2024 10:[address] [facility] Calcium 8.8 8.5 - 10.5 mg/dL LAB CHEMISTRY METHOD 11/18/2024 10:[address] [facility] Blood Venous blood specimen / Unknown Venipuncture / Unknown 11/18/2024 6:05 AM EDT 11/18/2024 9:23 AM EDT us Preeti Lujan MD LAB BLOOD ORDERABLES Fin al Result [facility] [address] [place] [address], documented in this encounter Visit Diagnoses Diagnosis Chronic kidney disease, stage 3 unspecified (CMS/[facility] V24, [facility] V28) Spinal stenosis, lumbar region without neurogenic claudication documented in this encounter Care Teams Mainspring Strip Inspector Relationship Specialty Start Date End Date Tram Álvarez MD 2 [facility] , [address] [place] [address] Physician Associ D/B/A: [facility] JAS Duque PCP - General Internal Medicine 03/30/18 documented as of this encounter
--- OUTSIDE RECORDS SUMMARY | 2025-03-08 10:57 | XMS_ITS | Encounter Summary ---
Author Organization [facility] Address [address] [place] [address] Care Team Providers Care Commercial Management Accountant Name Role Phone Tram Álvarez MD Primary Care Provider [phone] Encounter Details Date Type Department Care Team (Late st Contact Info) Description 05/28/2024 Lab Requisition [facility] - Main Lab [address] [place] [address] Prince Le MD 38 [facility] [address] [place], [address] Essential (primary) hypertension Social History Tobacco [...] LAB CHEMISTRY METHOD 05/31/2024 11:37 AM EST [facility] Potassium 4.5 3.5 - 5.5 mmol/L LAB CHEMISTRY METHOD 05/31/2024 11:37 AM EST [facility] Chloride 108 96 - 110 [...] refit without adjustment for race. BUN/Creatinine Ratio 21.7 LAB CHEMISTRY METHOD 05/31/2024 11:37 AM [facility] Calcium 9.2 8.5 - 10.5 mg/dL LAB CHEMISTRY METHOD 05/31/2024 11:37 AM [facility] Blood Venous blood specimen / Unknown Venipuncture / Unknown 05/31/2024 7:20 AM EST 05/31/2024 10:13 AM EST us Prince Le MD LAB BLOOD ORDERABLES Final Resul t [facility] [address] [place] [address], * (ABNORMAL) Complete blood count (05/31/2024 7:20 [...] METHOD 05/31/2024 10:39 AM [facility] MPV 12.5(H) 7.0 - 11.0 FL LAB HEMETOLOGY METHOD 05/31/2024 10:39 AM [facility] NRBC 0.0 <1.0 % LAB HEMETOLOGY METHOD 05/31/2024 10:39 AM [facility] NRBC Absolute 0.00 <0.10 K/mcL LAB HEMETOLOGY METHOD 05/31/2024 10:39 AM [facility] Blood Venous blood specimen / Unknown Venipuncture / Unknown 05/31/2024 7:20 AM EST 05/31/2024 10:16 AM EST us Prince Le MD LAB BLOOD ORDERABLES Final Resul t [facility] [address] [place] [address], [place] [phone] documented in this encounter Visit Diagnoses Diagnosis Essential (primary) hypertension Unspecified essential hypertension documented in this encounter Care Teams Commercial Management Accountant Relationship Specialty Start Date End Date Tram Álvarez MD 2 [facility] , [address] [facility] Physician Associ D/B/A: [facility] [place], [place] PCP - General Internal Medicine 03/30/18 documented as of this encounter
--- OUTSIDE RECORDS SUMMARY | 2025-03-08 10:57 | XMS_ITS | Encounter Summary ---
Author Organization [facility] Address [address] [place] [address] Care Team Providers Care Architecture Consultant Name Role Phone Tram Álvarez MD Primary Care Provider [phone] Encounter Details Date Type Department Care Team (Late st Contact Info) Description 07/29/2024 Lab Requisition [facility] - Main Lab [address] [place] [address] Prince Le MD 38 [facility] [address] [place], [address] Type 2 diabetes mellitus without complications [...] mg/dL LAB CHEMISTRY METHOD 07/30/2024 10:25 AM [facility] Blood Venous blood specimen / Unknown Venipuncture / Unknown 07/30/2024 7:30 AM EST 07/30/2024 9:39 AM EST us Prince Le MD LAB BLOOD ORDERABLES Final Resul t [facility] [address] [place] [address], * (ABNORMAL) Comprehensive metabolic panel (07/30/2024 7:30 AM EST) Sodium 140 133 - 145 mmol/L LAB CHEMISTRY METHOD 07/30/2024 10:25 AM [facility] Potassium 5.1 3.5 - 5.5 mmol/L LAB CHEMISTRY METHOD 07/30/2024 10:25 AM [facility] Chloride 107 96 - 110 mmol/L LAB CHEMISTRY METHOD 07/30/2024 10:25 AM [facility] CO2 31 21 - 32 mmol/L LAB CHEMISTRY METHOD 07/30/2024 10:25 AM [facility] Anion Gap 2(L) 3 - 11 LAB CHEMISTRY METHOD 07/30/2024 10:25 AM [facility] Glucose 76 70 - 100 mg/dL LAB CHEMISTRY METHOD 07/30/2024 10:25 AM [facility] BUN 28(H) 5 - 25 mg/dL LAB CHEMISTRY METHOD 07/30/2024 10:25 AM [facility] Creatinine 1.13 0.70 - 1.30 mg/dL LAB CHEMISTRY METHOD 07/30/2024 10:25 AM [facility] eGFR 71 >=60 mL/min/1. 73m2 LAB CHEMISTRY METHOD 07/30/2024 10:25 AM [facility] Comment:Calculation based on the Chronic Kidney Disease Epidemiology Collaboration (CKD-EPI) equation refit without adjustment for race. BUN/Creatinine Ratio 24.8 LAB CHEMISTRY METHOD 07/30/2024 10:25 AM [facility] Calcium 9.5 8.5 - 10.5 mg/dL LAB CHEMISTRY METHOD 07/30/2024 10:25 AM [facility] AST (SGOT) 28 10 - 42 unit/L LAB CHEMISTRY METHOD 07/30/2024 10:25 AM [facility] ALT (SGPT) 24 10 - 60 unit/L LAB CHEMISTRY METHOD 07/30/2024 10:25 AM [facility] Alkaline Phosphatase 62 42 - 121 unit/L LAB CHEMISTRY METHOD 07/30/2024 10:25 AM [facility] Total Protein 6.4 6.0 - 8.0 g/dL LAB CHEMISTRY METHOD 07/30/2024 10:25 AM [facility] Albumin 3.2 3.2 - 5.0 g/dL LAB CHEMISTRY METHOD 07/30/2024 10:25 AM [facility] Total Bilirubin 0.4 0.0 - 1.4 mg/dL LAB CHEMISTRY METHOD 07/30/2024 10:25 AM [facility] Blood Venous blood specimen / Unknown Venipuncture / Unknown 07/30/2024 7:30 AM EST 07/30/2024 9:39 AM EST us Prince Le MD LAB BLOOD ORDERABLES Final Resul t [facility] [address] [place] [address], * (ABNORMAL) Complete blood count (07/30/2024 7:30 AM EST) WBC 8.9 4.8 - 10.8 K/mcL LAB HEMETOLOGY METHOD 07/30/2024 9:55 AM EST [facility] RBC 4.30(L) 4.50 - 5.50 M/mcL LAB HEMETOLOGY METHOD 07/30/2024 9:55 AM [facility] Hemoglobin 12.1(L) 13.5 - 17.5 g/dL LAB HEMETOLOGY METHOD 07/30/2024 9:55 AM [facility] Hematocrit 36.5(L) 42.0 - 54.0 % LAB HEMETOLOGY METHOD 07/30/2024 9:55 AM [facility] MCV 84.3 79.0 - 98.0 FL LAB HEMETOLOGY METHOD 07/30/2024 9:55 AM [facility] MCH 27.9 27.0 - 32.0 pcg LAB HEMETOLOGY METHOD 07/30/2024 9:55 AM [facility] MCHC 33.2 32.0 - 37.0 g/dL LAB HEMETOLOGY METHOD 07/30/2024 9:55 AM [facility] RDW 19.4(H) 11.0 - 15.0 % LAB HEMETOLOGY METHOD 07/30/2024 9:55 AM [facility] Platelets 315 130 - 400 K/mcL LAB HEMETOLOGY METHOD 07/30/2024 9:55 AM [facility] MPV 12.7(H) 7.0 - 11.0 FL LAB HEMETOLOGY METHOD 07/30/2024 9:55 AM [facility] NRBC 0.0 <1.0 % LAB HEMETOLOGY METHOD 07/30/2024 9:55 AM [facility] NRBC Absolute 0.00 <0.10 K/mcL LAB HEMETOLOGY METHOD 07/30/2024 9:55 AM [facility] Blood Venous blood specimen / Unknown Venipuncture / Unknown 07/30/2024 7:30 AM EST 07/30/2024 9:39 AM EST us Prince Le MD LAB BLOOD ORDERABLES Final Resul t [facility] [address] [place] [address], documented in this encounter Visit Diagnoses Diagnosis Type 2 diabetes mellitus without complications (CMS/HCC V24, CMS/HCC V28) documented in this encounter Care Teams Architecture Consultant Relationship Specialty Start Date End Date Tram Álvarez MD 2 [facility] , [address] [facility] Physician Associ D/B/A: [facility] JAS Duque PCP - General Internal Medicine 03/30/18 documented as of this encounter
--- OUTSIDE RECORDS SUMMARY | 2025-03-08 10:57 | XMS_ITS | Encounter Summary ---
Author Organization [facility] Address [address] [place] [address] Care Team Providers Care Activity Manager Name Role Phone Tram Álvarez MD Primary Care Provider [phone] Encounter Details Date Type Department Care Team (Late st Contact Info) Description 11/05/[address] [facility] - Main Lab [address] [facility] [place] [address] Preeti Lujan MD [address] [phone] Pneumonia, unspecified organism Social History Tobacco Use Types Packs/Day Years [...] Associated Diagnosis Comments BASIC METABOLIC PANEL Routine 11/05/2024 8:07 AM EDT Pneumonia, unspecified organism documented in this encounter Results * (ABNORMAL) Basic metabolic panel (11/05/2024 8:07 AM EDT) Sodium 142 133 - 145 mmol/L LAB CHEMISTRY METHOD 11/05/2024 11:23 AM EDT [facility] Potassium 3.8 3.5 - 5.5 mmol/L LAB CHEMISTRY METHOD 11/05/2024 11:23 AM T [facility] Chloride 112(H) 96 - 110 mmol/L LAB CHEMISTRY METHOD 11/05/2024 11:23 AM T [facility] CO2 19(L) 21 - 32 mmol/L LAB CHEMISTRY METHOD 11/05/2024 11:23 AM [facility] Anion Gap 11 3 - 11 LAB CHEMISTRY METHOD 11/05/2024 11:23 AM [facility] Glucose 121(H) 70 - 100 mg/dL LAB CHEMISTRY METHOD 11/05/2024 11:23 AM [facility] BUN 22 5 - 25 mg/dL LAB CHEMISTRY METHOD 11/05/2024 11:23 AM [facility] Creatinine 0.58(L) 0.70 - 1.30 mg/dL LAB CHEMISTRY METHOD 11/05/2024 11:23 AM [facility] eGFR 106 >=60 mL/min/1. 73m2 LAB CHEMISTRY METHOD 11/05/2024 11:23 AM [facility] Comment:Calculation based on the Chronic Kidney Disease Epidemiology Collaboration (CKD-EPI) equation refit without adjustment for race. BUN/Creatinine Ratio 37.9 LAB CHEMISTRY METHOD 11/05/2024 11:23 AM [facility] Calcium 9.3 8.5 - 10.5 mg/dL LAB CHEMISTRY METHOD 11/05/2024 11:23 AM [facility] Blood Venous blood specimen / Unknown Venipuncture / Unknown 11/05/2024 8:07 AM EDT 11/05/2024 9:58 AM EDT us Preeti Lujan MD LAB BLOOD ORDERABLES Fin al Result [facility] [address] [place] [address], documented in this encounter Visit Diagnoses Diagnosis Pneumonia, unspecified organism documented in this encounter Care Teams Activity Manager Relationship Specialty Start Date End Date Tram Álvarez MD 2 [facility] , [address] Physician Associ D/B/A: [facility] JAS Duque PCP - General Internal Medicine 03/30/18 documented as of this encounter
--- OUTSIDE RECORDS SUMMARY | 2025-03-08 10:57 | XMS_ITS | Encounter Summary ---
Author Organization [facility] Address [address] [place] [address] Care Team Providers Care Junior High School Teacher Name Role Phone Tram Álvarez MD Primary Care Provider [phone] Encounter Details Date Type Department Care Team (Late st Contact Info) Description 09/23/2024 Lab Requisition [facility] - Main Lab [address] [place] [address] Prince Le MD 38 [facility] [address] [place], [address] Type 2 diabetes mellitus without complications [...] LAB CHEMISTRY METHOD 09/24/2024 12:40 PM EDT [facility] Blood Venous blood specimen / Unknown Venipuncture / Unknown 09/24/2024 5:45 AM EDT 09/24/2024 9:53 AM EDT us Prince Le MD LAB BLOOD ORDERABLES Final Resul t [facility] [address] [place] [address], [place] [phone] * (ABNORMAL) Comprehensive metabolic panel (09/24/2024 5:45 AM EDT) Sodium 140 133 - 145 mmol/L LAB CHEMISTRY METHOD 09/24/2024 12:42 PM [facility] Potassium 4.8 3.5 - 5.5 mmol/L LAB CHEMISTRY METHOD 09/24/2024 12:42 PM [facility] Chloride 107 96 - 110 mmol/L LAB CHEMISTRY METHOD 09/24/2024 12:42 PM [facility] CO2 27 21 - 32 mmol/L LAB CHEMISTRY METHOD 09/24/2024 12:42 PM [facility] Anion Gap 6 3 - 11 LAB CHEMISTRY METHOD 09/24/2024 12:42 PM [facility] Glucose 81 70 - 100 mg/dL LAB CHEMISTRY METHOD 09/24/2024 12:42 PM [facility] BUN 18 5 - 25 mg/dL LAB CHEMISTRY METHOD 09/24/2024 12:42 PM [facility] Creatinine 0.80 0.70 - 1.30 mg/dL LAB CHEMISTRY METHOD 09/24/2024 12:42 PM [facility] eGFR 96 >=60 mL/min/1. 73m2 LAB CHEMISTRY METHOD 09/24/2024 12:42 PM [facility] Comment:Calculation based on the Chronic Kidney Disease Epidemiology Collaboration (CKD-EPI) equation refit without adjustment for race. BUN/Creatinine Ratio 22.5 LAB CHEMISTRY METHOD 09/24/2024 12:42 PM T [facility] Calcium 8.9 8.5 - 10.5 mg/dL LAB CHEMISTRY METHOD 09/24/2024 12:42 PM [facility] AST (SGOT) 15 10 - 42 unit/L LAB CHEMISTRY METHOD 09/24/2024 12:42 PM [facility] ALT (SGPT) 16 10 - 60 unit/L LAB CHEMISTRY METHOD 09/24/2024 12:42 PM [facility] Alkaline Phosphatase 51 42 - 121 unit/L LAB CHEMISTRY METHOD 09/24/2024 12:42 PM [facility] Total Protein 6.1 6.0 - 8.0 g/dL LAB CHEMISTRY METHOD 09/24/2024 12:42 PM [facility] Albumin 2.7(L) 3.2 - 5.0 g/dL LAB CHEMISTRY METHOD 09/24/2024 12:42 PM [facility] Total Bilirubin 0.4 0.0 - 1.4 mg/dL LAB CHEMISTRY METHOD 09/24/2024 12:42 PM [facility] Blood Venous blood specimen / Unknown Venipuncture / Unknown 09/24/2024 5:45 AM EDT 09/24/2024 9:53 AM EDT us Prince Le MD LAB BLOOD ORDERABLES Final Resul t [facility] [address] [place] [address], * (ABNORMAL) Complete blood count (09/24/2024 5:45 AM EDT) WBC 7.3 4.8 - 10.8 K/mcL LAB HEMETOLOGY METHOD 09/24/2024 10:05 AM [facility] RBC 3.70(L) 4.50 - 5.50 M/mcL LAB HEMETOLOGY METHOD 09/24/2024 10:05 AM [facility] Hemoglobin 11.0(L) 13.5 - 17.5 g/dL LAB HEMETOLOGY METHOD 09/24/2024 10:05 AM [facility] Hematocrit 35.4(L) 42.0 - 54.0 % LAB HEMETOLOGY METHOD 09/24/2024 10:05 AM [facility] MCV 96.2 79.0 - 98.0 FL LAB HEMETOLOGY METHOD 09/24/2024 10:05 AM [facility] MCH 29.9 27.0 - 32.0 pcg LAB HEMETOLOGY METHOD 09/24/2024 10:05 AM [facility] MCHC 31.1(L) 32.0 - 37.0 g/dL LAB HEMETOLOGY METHOD 09/24/2024 10:05 AM [facility] RDW 16.4(H) 11.0 - 15.0 % LAB HEMETOLOGY METHOD 09/24/2024 10:05 AM [facility] Platelets 480(H) 130 - 400 K/mcL LAB HEMETOLOGY METHOD 09/24/2024 10:05 AM [facility] MPV 12.1(H) 7.0 - 11.0 FL LAB HEMETOLOGY METHOD 09/24/2024 10:05 AM [facility] NRBC 0.0 <1.0 % LAB HEMETOLOGY METHOD 09/24/2024 10:05 AM [facility] NRBC Absolute 0.00 <0.10 K/mcL LAB HEMETOLOGY METHOD 09/24/2024 10:05 AM [facility] Blood Venous blood specimen / Unknown Venipuncture / Unknown 09/24/2024 5:45 AM EDT 09/24/2024 9:53 AM EDT us Prince Le MD LAB BLOOD ORDERABLES [facility] [address] [place] [address], documented in this encounter Visit Diagnoses Diagnosis Type 2 diabetes mellitus without complications (CMS/HCC V24, CMS/HCC V28) documented in this encounter Care Teams Junior High [employer] Teacher Relationship Specialty Start Date End Date Tram Álvarez MD 2 [facility] , [address] Physician Associ D/B/A: [facility] JAS Duque PCP - General Internal Medicine 03/30/18 documented as of this encounter
--- OUTSIDE RECORDS SUMMARY | 2025-03-08 10:57 | XMS_ITS | Encounter Summary ---
Author Organization [facility] Address [address] [place] [address] Care Team Providers Care Phlebotomy Support Tech Name Role Phone Tram Álvarez MD Primary Care Provider [phone] Encounter Details Date Type Department Care Team (Late st Contact Info) Description 10/22/2024 Lab Requisition [facility] - Main Lab [address] [place] [address] Preeti Lujan MD [address] [phone] Type 2 diabetes mellitus without complications (CMS/HCC [...] Procedure Name Priority Date/Time Associated Diagnosis Comments HEMOGLOBIN A1C Routine 10/22/2024 6:43 AM EDT Type 2 diabetes mellitus without complications (CMS/HCC V24, CMS/[facility] V28) documented in this encounter Results * Hemoglobin A1c (10/22/2024 6:43 AM EDT) Hemoglobin A1C 5.5 <6.5 % LAB CHEMISTRY METHOD 10/22/2024 2:03 PM EDT [facility] Mean Bld Glu Estim. 111 mg/dL LAB CHEMISTRY METHOD 10/22/2024 2:03 PM EDT [facility] Blood Venous blood specimen / Unknown Venipuncture / Unknown 10/22/2024 6:43 AM EDT 10/22/2024 9:05 AM EDT us Preeti Lujan MD LAB BLOOD ORDERABLES Fin al Result [facility] ([facility]) [facility] [address] [place] [address], documented in this encounter Visit Diagnoses Diagnosis Type 2 diabetes mellitus without complications (CMS/HCC V24, CMS/HCC V28) documented in this encounter Care Teams Phlebotomy Support Tech Relationship Specialty Start Date End Date Tram Álvarez MD 2 [facility] , [address] Physician Associ D/B/A: [facility] JAS Duque PCP - General Internal Medicine 03/30/18 documented as of this encounter
--- OUTSIDE RECORDS SUMMARY | 2025-03-08 10:57 | XMS_ITS | Clinical Summary ---
Author Organization [employer] [facility] Address [address] [facility] [address] [place] [address] Care Team Providers Care Integration Software Engineer Name Role Phone Unavailable Primary Care Provider Unavailabl e Active Problems Problem Noted Date Diagnosed Date Cervical spinal stenosis 11/12/2024 Chronic neck and back pain 11/12/2024 Osteoarthritis 11/12/2024 Anxiety 11/12/2024 Chronic heart failure 05/07/2024 Chronic kidney disease (CKD) 09/27/2020 Type 2 diabetes mellitus 01/06/2020 Lumbar spinal stenosis 01/06/2020 Vitamin D deficiency 01/06/2020 Hyperlipidemia 01/06/2020 History of Helicobacter pylori infection 014 Overview (11/12/2024): Treated by Dr. Shayan ROCA BMI 38.0-38.9,adult 01/05/2013 Diverticulosis 01/05/2013 Essential hypertension 01/05/2013 Major depression, recurrent, chronic 01/05/2013 Resolved Problems Problem Noted Date Diagnosed Date Resolved Date Cervical radiculopathy 01/05/201311/12 Immunizations Immunization Administration Dates Next Due Influenza injectable quadriv alent IIV4 with preservative 04/14/2019,03/28/2016 Influenza injectable quadriv alent preservative free 04/07/2023,05/08/2022,04/17/2021,06/25 Influenza, IIV3, injectable 03/06/2012, 1,07/09/2010 Influenza, seasonal, injecta ble, preservative free 04/15/2024 Pneumococcal Polysaccharide PPSV23 05/12/2018, SARS-CoV-2, Unspecified 04/10/2023,09/11/2020, Tdap 08/31/2010 Social History Tobacco Use Types Packs/Day Years Used Date Smoking Tobacco: Never Assessed Sex and Gender Information Value Date Recorded Sex Assigned at Male 05/06/2022 10:29 AM EDT Legal Sex Male 10:29 AM EDT Gender Identity Choose not to disclose 1:51 PM EDT Sexual Orientation Don't know 11/12/2024 1: 51 PM EDT Plan of Treatment Upcoming Encounters Date Type Department Care Team (Late st Contact Info) Description 03/18/2025 9:00 AM EDT Office Visit [facility] [address] [place] [address] Angeles Swartz MD [address] [place], [place] [phone] Health Maintenance Due Date Last Done Comments CT Colonography 1955 Colonoscopy 1955 Colorectal Cancer Screening 1955 Depression Screening 1955 FIT DNA/Cologuard 1955 FIT 1955 FOBT 1955 Lipid Panel 1955 SDOH Screening 1955 Sigmoidoscopy 1955 Diabetes: Foot Exam 10/04/1965 Eye Exam 10/04/1965 Alcohol/Substance Use Screening 1967 Tobacco Screening 1967 Hepatitis C Screening 10/04/1973 Diabetes: Urine Protein Screening 10/04/1974 Zoster Vaccines (1 of 2) 10/04/2005 RSV Patients and Patients Aged 60 years or older (1 - Risk 60-74 years 1-dose series) 2015 Pneumococcal Vaccine: 50+ Years (2 of 2 - PCV) 05/12/2019 05/12/2018, 07/09/2010 DTaP/Tdap/Td Vaccines (2 - Td or Tdap) 08/31/2020 08/31/2010 COVID-19 Vaccine ( - season) 2024 04/10/2023, 09/11/2020, 08/21/2020 Diabetes: Hemoglobin A1C 01/21/2025 10/22/2024 Influenza Vaccine (#1) 2025 , 04/07/2023, 05/08/2022, Additional history exists HIB Vaccines Aged [...] patient's age to complete this topic Insurance [facility] LONG-TERM OPTIONS (O D-SNP) JIM DIAZ [id number]
--- OUTSIDE RECORDS SUMMARY | 2025-03-08 10:57 | XMS_ITS | Encounter Summary ---
Author Organization [facility] Address [address] [place] [address] Care Team Providers Care Battery Checker Name Role Phone Tram Álvarez MD Primary Care Provider [phone] Encounter Details Date Type Department Care Team (Late st Contact Info) Description 11/11/2024 Lab Requisition [facility] - Main Lab [address] [place] [address] Shonda Brenner MD [address] [place] [address] Unspecified abdominal pain Social History Tobacco Use Types Packs/Day Years [...] Procedure Name Priority Date/Time Associated Diagnosis Comments URINALYSIS WITH REFLEX MICROSCOPIC Routine 11/11/2024 12:00 AM EDT Unspecified abdominal pain URINALYSIS WITH REFLEX MICROSCOPIC Routine 11/11/2024 12:00 AM EDT Unspecified abdominal pain CULTURE URINE Routine 11/11/2024 12:00 AM EDT Unspecified abdominal pain documented in this encounter Results * (ABNORMAL) Urinalysis with reflex microscopic (11/11/2024 12:00 AM EDT) Specific [place] Urine 1.014 1.003 - 1.030 LAB URINALYSIS - AUTOMATED METHOD 11/11/2024 11:33 AM EDT [facility] pH, Urine 7.0 5.0 - 8.0 pH LAB URINALYSIS - AUTOMATED METHOD 11/11/2024 11:33 AM [facility] Leukocytes, Urine Large(A) Negative LAB URINALYSIS - AUTOMATED METHOD 11/11/2024 11:33 AM [facility] Nitrite, Urine Negative Negative LAB URINALYSIS - AUTOMATED METHOD 11/11/2024 11:33 AM [facility] Protein, Urine Trace <=Trace mg/dL LAB URINALYSIS - AUTOMATED METHOD 11/11/2024 11:33 AM [facility] Glucose, Urine Negative Negative mg/dL LAB URINALYSIS - AUTOMATED METHOD 11/11/2024 11:33 AM [facility] Ketones, Urine Negative Negative mg/dL LAB URINALYSIS - AUTOMATED METHOD 11/11/2024 11:33 AM [facility] Urobilinogen, Urine 0.2 0.2 - 1.0 mg/dL LAB URINALYSIS - AUTOMATED METHOD 11/11/2024 11:33 AM [facility] Bilirubin, Urine Negative Negative LAB URINALYSIS - AUTOMATED METHOD 11/11/2024 11:33 AM [facility] Blood, Urine Negative Negative LAB URINALYSIS - AUTOMATED METHOD 11/11/2024 11:33 AM [facility] RBC, Urine 3.0 0 - 4 /HPF LAB URINALYSIS - AUTOMATED METHOD 11/11/2024 11:33 AM [facility] WBC, Urine 57.5(H) 0 - 4 /HPF LAB URINALYSIS - AUTOMATED METHOD 11/11/2024 11:33 AM [facility] Squamous Epithelial, Urine >100(H) 0 - 60 /LPF LAB URINALYSIS - AUTOMATED METHOD 11/11/2024 11:33 AM [facility] Bacteria, Urine Negative Negative /HPF LAB URINALYSIS - AUTOMATED METHOD 11/11/2024 11:33 AM EDT [facility] Hyaline Casts, Urine 2.0 0 - 3 /LPF LAB URINALYSIS - AUTOMATED METHOD 11/11/2024 11:33 AM EDT [facility] Urine Urine specimen obtained by clean catch procedure / Unknown Non-blood Collection / Unknown 11/11/2024 11/11/2024 9:44 AM EDT us Shonda Brenner MD LAB URINE ORDERABLES Final Resu lt Performing Organization Address [facility]/ZIP Co de Phone Number [facility] [address] [place] [address], [place] [phone] * Culture urine (11/11/2024 12:00 AM EDT) Culture, Urine <10,000 CFU/mL gram negative bacilli, insignificant count, no further workup 11/12/2024 8:43 AM EDT [facility] Urine Urine specimen obtained by clean catch procedure / Unknown Non-blood Collection / Unknown 11/11/2024 11/11/2024 9:44 AM EDT us Shonda Brenner MD LAB MICROBIOLOGY - GENERAL ORDE RABLES Final Result Performing Organization Address [facility]/ZIP Co de Phone Number [facility] [address] [place] [address], [place] [phone] documented in this encounter Visit Diagnoses Diagnosis Unspecified abdominal pain documented in this encounter Care Teams Battery Checker Relationship Specialty Start Date End Date Tram Álvarez MD 2 [facility] [address] Physician Associ D/B/A: [facility] [place] PCP - General Internal Medicine 03/30/18 documented as of this encounter
--- OUTSIDE RECORDS SUMMARY | 2025-03-08 10:57 | XMS_ITS | Encounter Summary ---
Author Organization [facility] Address [address] [place] [address] Care Team Providers Care Surgery Technician Name Role Phone Tram Álvarez MD Primary Care Provider [phone] Encounter Details Date Type Department Care Team (Late st Contact Info) Description 10/21/2024 Lab Requisition [facility] - Main Lab [address] [facility] [place] [address] Prince Le MD 38 [facility] [address] [place], [address] Type 2 diabetes mellitus without complications [...] V28) documented in this encounter Care Teams Surgery Technician Relationship Specialty Start Date End Date Tram Álvarez MD [address] [place] [address] , [address] [facility] Physician Associ D/B/A: [facility] [place], [place] PCP - General Internal Medicine 03/30/18 documented as of this encounter
--- OUTSIDE RECORDS SUMMARY | 2025-03-08 10:57 | XMS_ITS | Encounter Summary ---
Author Organization [facility] Address [address] [place] [address] Care Team Providers Care Handle And Vent Machine Operator Name Role Phone Tram Álvarez MD Primary Care Provider [phone] Encounter Details Date Type Department Care Team (Late st Contact Info) Description 11/11/2024 Lab Requisition [facility] - Main Lab [address] [place] [address] Preeti Lujan MD [address] [id number] Chronic kidney disease, unspecified Social History Tobacco [...] Associated Diagnosis Comments COMPLETE BLOOD COUNT Routine 11/11/2024 6:41 AM EDT Chronic kidney disease, unspecified BASIC METABOLIC PANEL Routine 11/11/2024 6:41 AM EDT Chronic kidney disease, unspecified documented in this encounter Results * (ABNORMAL) Basic metabolic panel (11/11/2024 6:41 AM EDT) Sodium 141 133 - 145 mmol/L LAB CHEMISTRY METHOD 11/11/2024 11:32 AM EDT [facility] Potassium 4.2 3.5 - 5.5 mmol/L LAB CHEMISTRY METHOD 11/11/2024 11:32 AM EDT [facility] Chloride 110 96 - 110 mmol/L LAB CHEMISTRY METHOD 11/11/2024 11:32 AM [facility] CO2 22 21 - 32 mmol/L LAB CHEMISTRY METHOD 11/11/2024 11:32 AM [facility] Anion Gap 9 3 - 11 LAB CHEMISTRY METHOD 11/11/2024 11:32 AM [facility] Glucose 177(H) 70 - 100 mg/dL LAB CHEMISTRY METHOD 11/11/2024 11:32 AM [facility] BUN 20 5 - 25 mg/dL LAB CHEMISTRY METHOD 11/11/2024 11:32 AM [facility] Creatinine 0.67(L) 0.70 - 1.30 mg/dL LAB CHEMISTRY METHOD 11/11/2024 11:32 AM [facility] eGFR 101 >=60 mL/min/1. 73m2 LAB CHEMISTRY METHOD 11/11/2024 11:32 AM [facility] Comment:Calculation based on the Chronic Kidney Disease Epidemiology Collaboration (CKD-EPI) equation refit without adjustment for race. BUN/Creatinine Ratio 29.9 LAB CHEMISTRY METHOD 11/11/2024 11:32 AM [facility] Calcium 8.7 8.5 - 10.5 mg/dL LAB CHEMISTRY METHOD 11/11/2024 11:32 AM [facility] Blood Venous blood specimen / Unknown Venipuncture / Unknown 11/11/2024 6:41 AM EDT 11/11/2024 9:11 AM EDT us Preeti Lujan MD LAB BLOOD ORDERABLES Fin al Result [facility] [address] [place] [address], * (ABNORMAL) Complete blood count (11/11/2024 6:41 AM EDT) WBC 8.1 4.8 - 10.8 K/mcL LAB HEMETOLOGY METHOD 11/11/2024 10:28 AM [facility] RBC 3.80(L) 4.50 - 5.50 M/mcL LAB HEMETOLOGY METHOD 11/11/2024 10:28 AM [facility] Hemoglobin 11.5(L) 13.5 - 17.5 g/dL LAB HEMETOLOGY METHOD 11/11/2024 10:28 AM [facility] Hematocrit 35.8(L) 42.0 - 54.0 % LAB HEMETOLOGY METHOD 11/11/2024 10:28 AM [facility] MCV 93.2 79.0 - 98.0 FL LAB HEMETOLOGY METHOD 11/11/2024 10:28 AM [facility] MCH 29.9 27.0 - 32.0 pcg LAB HEMETOLOGY METHOD 11/11/2024 10:28 AM [facility] MCHC 32.1 32.0 - 37.0 g/dL LAB HEMETOLOGY METHOD 11/11/2024 10:28 AM [facility] RDW 16.4(H) 11.0 - 15.0 % LAB HEMETOLOGY METHOD 11/11/2024 10:28 AM [facility] Platelets 314 130 - 400 K/mcL LAB HEMETOLOGY METHOD 11/11/2024 10:28 AM [facility] MPV 12.3(H) 7.0 - 11.0 FL LAB HEMETOLOGY METHOD 11/11/2024 10:28 AM [facility] NRBC 0.0 <1.0 % LAB HEMETOLOGY METHOD 11/11/2024 10:28 AM [facility] NRBC Absolute 0.00 <0.10 K/mcL LAB HEMETOLOGY METHOD 11/11/2024 10:28 AM EDT [facility] Blood Venous blood specimen / Unknown Venipuncture / Unknown 11/11/2024 6:41 AM EDT 11/11/2024 9:11 AM EDT us Preeti Lujan MD LAB BLOOD ORDERABLES Fin al Result [facility] [address] [place] [address], documented in this encounter Visit Diagnoses Diagnosis Chronic kidney disease, unspecified documented in this encounter Care Teams Handle And Vent Machine Operator Relationship Specialty Start Date End Date Tram Álvarez MD 2 [facility] , [address] Physician Associ D/B/A: [facility] [place], [place] PCP - General Internal Medicine 03/30/18 documented as of this encounter
== END 2025-03-08 10:33 | disposition home or self-care (01) ==
LOC: HO.HCS 09:47
PROVIDERS: PCP Internal Medicine; Visit Provider Internal Medicine Cardiovascular Disease
DX: Z01.810 Encounter for preprocedural cardiovascular examination (principal); R94.31 Abnormal electrocardiogram [ECG] [EKG]
CPT/HCPCS: 93010; 99214; G2211

== ENCOUNTER → 2025-03-08 09:46 | Outpatient (BNVA) | payer OTHER, SELFPAY | PROVIDERS: PCP Internal Medicine; Visit Provider Internal Medicine Cardiovascular Disease | DX: Z01.810 Encounter for preprocedural cardiovascular examination (principal); I10 Essential (primary) hypertension; E78.5 Hyperlipidemia, unspecified; E11.9 Type 2 diabetes mellitus without complications; R94.31 Abnormal electrocardiogram [ECG] [EKG] | CPT/HCPCS: 93005; 99212 ==

== ENCOUNTER → 2025-03-22 10:54 | Outpatient (REF) | payer OTHER, SELFPAY ==
--- NOTE | 2025-03-22 11:00 | CA_ITS ---
Transthoracic Echocardiogram Amended Patient (Last, First, Middle): Carlos Cabrera A Gender: Male Date of : 1955 Age: 69 Procedure Date: 03/22/2025 Procedure Type: Transthoracic Echocardiogram Location: OP Height: 172.72 cm Weight: 99.79 kg BSA: 2.13 m2 Heart Rate: bpm BP: 122 / 60 mmHg Punch Press Feeder: Referring MD: Giuliano Grant MD Symptoms: I42.9 - Cardiomyopathy, unspecified Study Quality: Adequate ECG Rhythm: Sinus Conclusions: - The left ventricular systolic function is normal. The calculated ejection fraction is 61% by biplane method. - There is no evidence of regional wall motion abnormalities. Findings Left Ventricle Normal left ventricular cavity size. There is mildly increased left ventricular wall thickness. The left ventricular systolic function is normal. The calculated ejection fraction is 61% by biplane method. There is no evidence of regional wall motion abnormalities. Right Ventricle Normal right ventricular cavity size and systolic function. Prior Study Comparison Changes noted compared to prior study dated: 10/21/2024. Improved LVEF and wall motion. Measurements 2D Linear Measurements IVSd: 1.18 0.6-0.9/0.6-1.0 cm LVIDd: 4.60 3.9-5.3/4.2-5.9 cm LVIDd Index: 2.16 2.4-3.2/2.2-3.1 cm/m2 LVIDs: 3.23 2.0-3.6 cm LVPWd: 1.19 0.7-1.1 cm LV Mass: 250.92 67-162/88-224 g LV Mass Index: 117.80 43-95/49-115 g/m2 2D Systolic Function EF 4C: 64.60 >55% EF 2C: 55.20 >55% EF BiP: 61.00 >55% Updated in Other Vendor System with Status of Final Yuri Neri MD electronically signed on 03/23/2025 10:52:39 AM with status of Final
--- OUTSIDE RECORDS SUMMARY | 2025-03-22 14:39 | XMS_ITS | Encounter Summary ---
Author Organization [facility] Address [address] [place] [address] Care Team Providers Care Patternmaker Pressure Cast Name Role Phone Tram Álvarez MD Primary Care Provider [phone] Encounter Details Date Type Department Care Team (Late st Contact Info) Description 10/22/2024 Lab Requisition [facility] - Main Lab [address] [place] [address] Preeti Lujan MD [address] [id number] Type 2 diabetes mellitus without complications (CMS/HCC [...] 2 diabetes mellitus without complications (CMS/HCC V24, CMS/[facility] V28) documented in this encounter Results * Hemoglobin A1c (10/22/2024 6:43 AM EDT) Hemoglobin A1C 5.5 <6.5 % LAB CHEMISTRY METHOD 10/22/2024 2:03 PM EDT [facility] Mean Bld Glu Estim. 111 mg/dL LAB CHEMISTRY METHOD 10/22/2024 2:03 PM EDT [facility] Blood Venous blood specimen / Unknown Venipuncture / Unknown 10/22/2024 6:43 AM EDT 10/22/2024 9:05 AM EDT us Preeti Lujan MD LAB BLOOD ORDERABLES Fin al Result [facility] [address] [place] [address], documented in this encounter Visit Diagnoses Diagnosis Type 2 diabetes mellitus without complications (CMS/HCC V24, CMS/HCC V28) documented in this encounter Care Teams Patternmaker Pressure Cast Relationship Specialty Start Date End Date Tram Álvarez MD 2 [facility] , [address] Physician Associ D/B/A: [facility] JAS Duque PCP - General Internal Medicine 03/30/18 documented as of this encounter
--- OUTSIDE RECORDS SUMMARY | 2025-03-22 14:39 | XMS_ITS | Encounter Summary ---
Author Organization [facility] Address [address] [place] [address] Care Team Providers Care Emergency Medicine Name Role Phone Tram Álvarez MD Primary Care Provider [phone] Encounter Details Date Type Department Care Team (Late st Contact Info) Description 06/18/[address] [facility] - Main Lab [address] [place] [address] Prince Le MD 38 [facility] [address] [place], [address] Nausea with vomiting, unspecified; Chronic kidney [...] LAB CHEMISTRY METHOD 06/18/2024 11:17 AM EST [facility] ([facility] Potassium 4.6 3.5 - 5.5 [...] Resul t [facility] [address] [place] [address], [place] [phone] * (ABNORMAL) Complete blood count (06/18/2024 6:44 AM EST) WBC 8.4 4.8 - 10.8 K/[facility] LAB HEMETOLOGY METHOD 06/18/2024 10:46 AM [facility] LAB RBC 5.10 4.50 - 5.50 M/[facility] LAB HEMETOLOGY METHOD 06/18/2024 10:46 AM [...] HOSPITAL LAB Platelets 248 130 - 400 K/[facility] LAB HEMETOLOGY METHOD 06/18/2024 10:46 AM [facility] LAB MPV 12.7(H) 7.0 - 11.0 FL LAB HEMETOLOGY METHOD 06/18/2024 10:46 AM [facility] LAB NRBC 0.0 <1.0 % LAB HEMETOLOGY METHOD 06/18/2024 10:46 AM [facility] LAB NRBC Absolute 0.00 <0.10 K/[facility] LAB HEMETOLOGY METHOD 06/18/2024 10:46 AM [facility] LAB Blood Venous blood specimen / Unknown Venipuncture / Unknown 06/18/2024 6:44 AM EST 06/18/2024 9:17 AM EST us Prince Le MD LAB BLOOD ORDERABLES Final Resul t [facility] [address] [place] [address], documented in this encounter Visit Diagnoses Diagnosis Nausea with vomiting, unspecified Chronic kidney disease, unspecified documented in this encounter Care Teams Emergency Medicine Relationship Specialty Start Date End Date Tram Álvarez MD 2 [facility] , [address] Physician Associ D/B/A: [facility] JAS Duque PCP - General Internal Medicine 03/30/18 documented as of this encounter
--- OUTSIDE RECORDS SUMMARY | 2025-03-22 14:39 | XMS_ITS | Clinical Summary ---
Author Organization [facility] Facility Address [address] [place] [address] Care Team Providers Care Coping Machine Operator Name Role Phone Tram Royal MD Primary Care Provider [phone] Allergies Active Allergy Reactions Criticality Noted Date [...] % PVNMA 04/28/2020 us [facility] [id number] LICITED RESULTS Final Result PVNMA from Last 3 Months or Most Recently Relevant to Health Maintenance Insurance [address] [place] [id number] Medicaid [place] [address] [place] [id number] Medicaid [place] Care Teams Coping Machine Operator Relationship Specialty Start Date End Date Tram Royal MD [address] [place] PCP - General 07/17/20
--- OUTSIDE RECORDS SUMMARY | 2025-03-22 14:39 | XMS_ITS | Encounter Summary ---
Author Organization Address [address] [place] [address] Care Team Providers Care Nurse Special Name Role Phone Tram Álvarez MD Primary Care Provider [phone] Encounter Details Date Type Department Care Team (Late st Contact Info) Description 10/14/2024 Lab Requisition [facility] - Main Lab [address] [facility] [place] [address] Prince Le MD 38 [facility] [address] [place], [address] Type 2 diabetes mellitus without complications [...] V28) documented in this encounter Care Teams Nurse Special Relationship Specialty Start Date End Date Tram Álvarez MD [address] [place] [address] , [address] [facility] Physician Associ D/B/A: [facility] [place] PCP - General Internal Medicine 03/30/18 documented as of this encounter
--- OUTSIDE RECORDS SUMMARY | 2025-03-22 14:39 | XMS_ITS | Encounter Summary ---
Author Organization [facility] Address [address] [place] [address] Care Team Providers Care Employee Benefits Insurance Agent Name Role Phone Tram Álvarez MD Primary Care Provider [phone] Encounter Details Date Type Department Care Team (Late st Contact Info) Description 02/24/2025 Lab Requisition [facility] - Main Lab [address] [facility] [place] [address] Preeti Lujan MD [address] [phone] Essential (primary) hypertension Social History Tobacco Use [...] LAB CHEMISTRY METHOD 02/24/2025 9:[address] [facility] Potassium 6.0(H) 3.5 - 5.5 mmol/L LAB CHEMISTRY METHOD 02/24/2025 9:[address] [facility] Chloride 110 96 - 110 mmol/L LAB CHEMISTRY METHOD 02/24/2025 9:39 AM [facility] CO2 27 21 - 32 mmol/L LAB CHEMISTRY METHOD 02/24/2025 9:39 AM [facility] Anion Gap 4 3 - 11 LAB CHEMISTRY METHOD 02/24/2025 9:39 AM [facility] Glucose 117(H) 70 - 100 mg/dL LAB CHEMISTRY METHOD 02/24/2025 9:39 AM [facility] BUN 27(H) 5 - 25 mg/dL LAB CHEMISTRY METHOD 02/24/2025 9:39 AM [facility] Creatinine 0.84 0.70 - 1.30 mg/dL LAB CHEMISTRY METHOD 02/24/2025 9:39 AM [facility] LAB eGFR 94 >=60 mL/min/1. 73m2 LAB CHEMISTRY METHOD 02/24/2025 9:39 AM [facility] LAB Comment:Calculation based on the Chronic Kidney Disease Epidemiology Collaboration (CKD-EPI) equation refit without adjustment for race. BUN/Creatinine Ratio 32.1 LAB CHEMISTRY METHOD 02/24/2025 9:39 AM [facility] Calcium 9.4 8.5 - 10.5 mg/dL LAB CHEMISTRY METHOD 02/24/2025 9:39 AM [facility] Blood Venous blood specimen / Unknown Venipuncture / Unknown 02/24/2025 6:34 AM EDT 02/24/2025 8:31 AM EDT us Preeti Lujan MD LAB BLOOD ORDERABLES Fin al Result [facility] [address] [place] [address], * (ABNORMAL) Complete blood count (02/24/2025 6:34 AM EDT) WBC 7.9 4.8 - 10.8 K/mcL LAB HEMETOLOGY METHOD 02/24/2025 9:35 AM [facility] RBC 3.90(L) 4.50 - 5.50 M/mcL LAB HEMETOLOGY METHOD 02/24/2025 9:35 AM [facility] Hemoglobin 11.0(L) 13.5 - 17.5 g/dL LAB HEMETOLOGY METHOD 02/24/2025 9:35 AM [facility] Hematocrit 36.9(L) 42.0 - 54.0 % LAB HEMETOLOGY METHOD 02/24/2025 9:35 AM [facility] LAB MCV 95.3 79.0 - 98.0 FL LAB HEMETOLOGY METHOD 02/24/2025 9:35 AM [facility] MCH 28.4 27.0 - 32.0 pcg LAB HEMETOLOGY METHOD 02/24/2025 9:35 AM [facility] MCHC 29.8(L) 32.0 - 37.0 g/dL LAB HEMETOLOGY METHOD 02/24/2025 9:35 AM [facility] RDW 17.6(H) 11.0 - 15.0 % LAB HEMETOLOGY METHOD 02/24/2025 9:35 AM [facility] LAB Platelets 287 130 - 400 K/mcL LAB HEMETOLOGY METHOD 02/24/2025 9:35 AM [facility] LAB MPV 12.9(H) 7.0 - 11.0 FL LAB HEMETOLOGY METHOD 02/24/2025 9:35 AM [facility] NRBC 0.0 <1.0 % LAB HEMETOLOGY METHOD 02/24/2025 9:35 AM [facility] LAB NRBC Absolute 0.00 <0.10 K/mcL LAB HEMETOLOGY METHOD 02/24/2025 9:[address] [facility] Blood Venous blood specimen / Unknown Venipuncture / Unknown 02/24/2025 6:34 AM EDT 02/24/2025 8:31 AM EDT us Preeti Lujan MD LAB BLOOD ORDERABLES Fin al Result [facility] [address] [place] [address], documented in this encounter Visit Diagnoses Diagnosis Essential (primary) hypertension Unspecified essential hypertension documented in this encounter Care Teams Employee Benefits Insurance Agent Relationship Specialty Start Date End Date Tram Álvarez MD 2 [facility] , [address] Physician Associ D/B/A: [facility] [place], [place] PCP - General Internal Medicine 03/30/18 documented as of this encounter
--- OUTSIDE RECORDS SUMMARY | 2025-03-22 14:39 | XMS_ITS | Encounter Summary ---
Author Organization [facility] Address [address] [place] [address] Care Team Providers Care Shot Peen Operator Name Role Phone Tram Álvarez MD Primary Care Provider [phone] Encounter Details Date Type Department Care Team (Late st Contact Info) Description 05/14/2024 Lab Requisition [facility] - Main Lab [address] [place] [address] Prince Le MD 38 [facility] [address] [place], [address] Essential (primary) hypertension Social History Tobacco [...] LAB CHEMISTRY METHOD 05/17/2024 10:43 AM EST [facility] Potassium 4.5 3.5 - 5.5 mmol/L LAB CHEMISTRY METHOD 05/17/2024 10:43 AM EST [facility] Chloride 110 96 - [...] [facility] Comment:Calculation based on the [...] Resul t [facility] [address] [place] [address], * (ABNORMAL) Complete blood count (05/17/2024 6:41 [...] LAB BLOOD ORDERABLES Final Resul t [facility] ([facility]) [facility] [address] [place] [address], [place] [phone] documented in this encounter Visit Diagnoses Diagnosis Essential (primary) hypertension Unspecified essential hypertension documented in this encounter Care Teams Shot Peen Operator Relationship Specialty Start Date End Date Tram Álvarez MD 2 [facility] , [address] [facility] Physician Associ D/B/A: [facility] [place], [place] PCP - General Internal Medicine 03/30/18 documented as of this encounter
--- OUTSIDE RECORDS SUMMARY | 2025-03-22 14:39 | XMS_ITS | Clinical Summary ---
Author Organization [employer] [facility] Address [address] [facility] [address] [place] [address] Care Team Providers Care Integrated Circuit Fabricator Name Role Phone Unavailable Primary Care Provider [...] 1: 51 PM EDT Plan of Treatment Health Maintenance [...] (2 - Td or Tdap) 08/31/2020 08/31/2010 Diabetes: Hemoglobin A1C 01/21/2025 10/22/2024 COVID-19 Vaccine ( season) 2025 04/10/2023, 09/11/2020, 08/21/2020 Influenza Vaccine (#1) 2025 4, 04/07/2023, 05/08/2022, Additional history exists HIB Vaccines [...] patient's age to complete this topic Insurance [facility] ASSISTED OPTIONS (O D-SNP) JIM DIAZ [id number]
--- OUTSIDE RECORDS SUMMARY | 2025-03-22 14:39 | XMS_ITS | Encounter Summary ---
Author Organization [facility] Address [address] [place] [address] Care Team Providers Care Deep Fat Fry Cook Name Role Phone Tram Álvarez MD Primary Care Provider [phone] Encounter Details Date Type Department Care Team (Late st Contact Info) Description 07/16/2024 Lab Requisition [facility] - Main Lab [address] [place] [address] Prince Le MD 38 [facility] [address] [place], [address] Type 2 diabetes mellitus without complications [...] mg/dL LAB CHEMISTRY METHOD 07/16/2024 12:50 PM [facility] Blood Venous blood specimen / Unknown Venipuncture / Unknown 07/16/2024 8:00 AM EST 07/16/2024 11:21 AM EST us Prince Le MD LAB BLOOD ORDERABLES Final Resul t [facility] [address] [place] [address], [place] [phone] * (ABNORMAL) Comprehensive metabolic panel (07/16/2024 8:00 AM EST) Sodium 137 133 - 145 mmol/L LAB CHEMISTRY METHOD 07/16/2024 1:13 PM [facility] Potassium 5.1 3.5 - 5.5 mmol/L LAB CHEMISTRY METHOD 07/16/2024 1:13 PM [facility] Chloride 103 96 - 110 mmol/L LAB CHEMISTRY METHOD 07/16/2024 1:13 PM [facility] CO2 27 21 - 32 mmol/L LAB CHEMISTRY METHOD 07/16/2024 1:13 PM [facility] Anion Gap 7 3 - 11 LAB CHEMISTRY METHOD 07/16/2024 1:13 PM [facility] Glucose 40(L) 70 - 100 mg/dL LAB CHEMISTRY METHOD 07/16/2024 1:13 PM [facility] BUN 35(H) 5 - 25 mg/dL LAB CHEMISTRY METHOD 07/16/2024 1:13 PM [facility] Creatinine 1.27 0.70 - 1.30 mg/dL LAB CHEMISTRY METHOD 07/16/2024 1:13 PM [facility] LAB eGFR 62 >=60 mL/min/1. 73m2 LAB CHEMISTRY METHOD 07/16/2024 1:13 PM [facility] LAB Comment:Calculation based on the Chronic Kidney Disease Epidemiology Collaboration (CKD-EPI) equation refit without adjustment for race. BUN/Creatinine Ratio 27.6 LAB CHEMISTRY METHOD 07/16/2024 1:13 PM [facility] Calcium 9.0 8.5 - 10.5 mg/dL LAB CHEMISTRY METHOD 07/16/2024 1:13 PM [facility] AST (SGOT) 18 10 - 42 unit/L LAB CHEMISTRY METHOD 07/16/2024 1:13 PM [facility] ALT (SGPT) 19 10 - 60 unit/L LAB CHEMISTRY METHOD 07/16/2024 1:13 PM [facility] Alkaline Phosphatase 62 42 - 121 unit/L LAB CHEMISTRY METHOD 07/16/2024 1:13 PM [facility] Total Protein 6.7 6.0 - 8.0 g/dL LAB CHEMISTRY METHOD 07/16/2024 1:13 PM [facility] Albumin 3.5 3.2 - 5.0 g/dL LAB CHEMISTRY METHOD 07/16/2024 1:13 PM [facility] Total Bilirubin 0.4 0.0 - 1.4 mg/dL LAB CHEMISTRY METHOD 07/16/2024 1:13 PM [facility] Blood Venous blood specimen / Unknown Venipuncture / Unknown 07/16/2024 8:00 AM EST 07/16/2024 11:21 AM EST us Prince Le MD LAB BLOOD ORDERABLES Final Resul t [facility] [address] [place] [address], * (ABNORMAL) Complete blood count (07/16/2024 8:00 AM EST) WBC 10.9(H) 4.8 - 10.8 K/mcL LAB HEMETOLOGY METHOD 07/16/2024 11:53 AM EST [facility] RBC 4.90 4.50 - 5.50 M/mcL LAB HEMETOLOGY METHOD 07/16/2024 11:53 AM [facility] Hemoglobin 13.4(L) 13.5 - 17.5 g/dL LAB HEMETOLOGY METHOD 07/16/2024 11:53 AM [facility] Hematocrit 41.6(L) 42.0 - 54.0 % LAB HEMETOLOGY METHOD 07/16/2024 11:53 AM [facility] LAB MCV 85.1 79.0 - 98.0 FL LAB HEMETOLOGY METHOD 07/16/2024 11:53 AM [facility] LAB MCH 27.4 27.0 - 32.0 pcg LAB HEMETOLOGY METHOD 07/16/2024 11:53 AM [facility] MCHC 32.2 32.0 - 37.0 g/dL LAB HEMETOLOGY METHOD 07/16/2024 11:53 AM [facility] RDW 18.3(H) 11.0 - 15.0 % LAB HEMETOLOGY METHOD 07/16/2024 11:53 AM [facility] LAB Platelets 413(H) 130 - 400 K/mcL LAB HEMETOLOGY METHOD 07/16/2024 11:53 AM [facility] LAB MPV 12.4(H) 7.0 - 11.0 FL LAB HEMETOLOGY METHOD 07/16/2024 11:53 AM [facility] LAB NRBC 0.0 <1.0 % LAB HEMETOLOGY METHOD 07/16/2024 11:53 AM [facility] NRBC Absolute 0.00 <0.10 K/mcL LAB HEMETOLOGY METHOD 07/16/2024 11:53 AM [facility] Blood Venous blood specimen / Unknown Venipuncture / Unknown 07/16/2024 8:00 AM EST 07/16/2024 11:21 AM EST us Prince Le MD LAB BLOOD ORDERABLES Final Resul t [facility] ([facility]) [facility] [address] [place] [address], documented in this encounter Visit Diagnoses Diagnosis Type 2 diabetes mellitus without complications (CMS/HCC V24, CMS/HCC V28) documented in this encounter Care Teams Deep Fat Fry Cook Relationship Specialty Start Date End Date Tram Álvarez MD 2 [facility] , [address] [facility] Physician Associ D/B/A: [facility] JAS Duque PCP - General Internal Medicine 03/30/18 documented as of this encounter
--- OUTSIDE RECORDS SUMMARY | 2025-03-22 14:39 | XMS_ITS | Encounter Summary ---
Author Organization [facility] Address [address] [place] [address] Care Team Providers Care Chief Executive Or Managing Director Name Role Phone Tram Álvarez MD Primary Care Provider [phone] Encounter Details Date Type Department Care Team (Late st Contact Info) Description 08/19/2024 Lab Requisition [facility] - Main Lab [address] [place] [address] Prince Le MD 38 [facility] 204 [place], [address] Type 2 diabetes mellitus without complications [...] Resul t [facility] [address] [place] [address], * (ABNORMAL) Comprehensive metabolic panel (08/20/2024 7:39 [...] Resul t [facility] [address] [place] [address], * (ABNORMAL) Complete blood count (08/20/2024 7:39 [...] LAB BLOOD ORDERABLES Final Resul t [facility] ([facility]) [facility] [address] [place] [address], documented in this encounter Visit Diagnoses Diagnosis Type 2 diabetes mellitus without complications (CMS/HCC V24, CMS/HCC V28) documented in this encounter Care Teams Chief Executive Or Managing Director Relationship Specialty Start Date End Date Tram Álvarez MD 2 [facility] , [address] [facility] Physician Associ D/B/A: [facility] JAS Duque PCP - General Internal Medicine 03/30/18 documented as of this encounter
--- OUTSIDE RECORDS SUMMARY | 2025-03-22 14:39 | XMS_ITS | Encounter Summary ---
Author Organization [facility] Address [address] [place] [address] Care Team Providers Care Proposal Consultant Name Role Phone Tram Álvarez MD Primary Care Provider [phone] Encounter Details Date Type Department Care Team (Late st Contact Info) Description 11/11/2024 Lab Requisition [facility] - Main Lab [address] [place] [address] Shonda Brenner MD [address] [place] [address] Unspecified abdominal pain Social History Tobacco Use [...] reflex microscopic (11/11/2024 12:00 AM EDT) Specific [place] Urine 1.014 1.003 - 1.030 LAB URINALYSIS - AUTOMATED METHOD 11/11/2024 11:33 AM EDT [facility] pH, Urine 7.0 5.0 - 8.0 pH LAB URINALYSIS - AUTOMATED METHOD 11/11/2024 11:33 AM [facility] Leukocytes, Urine Large(A) Negative LAB URINALYSIS - AUTOMATED METHOD 11/11/2024 11:33 AM [facility] Nitrite, Urine Negative Negative LAB URINALYSIS - AUTOMATED METHOD 11/11/2024 11:33 AM [facility] Protein, Urine Trace <=Trace mg/dL LAB URINALYSIS - AUTOMATED METHOD 11/11/2024 11:33 AM [facility] Glucose, Urine Negative Negative mg/dL LAB URINALYSIS - AUTOMATED METHOD 11/11/2024 11:33 AM [facility] Ketones, Urine Negative Negative mg/dL LAB URINALYSIS - AUTOMATED METHOD 11/11/2024 11:33 AM [facility] Urobilinogen, Urine 0.2 0.2 - 1.0 mg/dL LAB URINALYSIS - AUTOMATED METHOD 11/11/2024 11:33 AM [facility] Bilirubin, Urine Negative Negative LAB URINALYSIS - AUTOMATED METHOD 11/11/2024 11:33 AM [facility] Blood, Urine Negative Negative LAB URINALYSIS - AUTOMATED METHOD 11/11/2024 11:33 AM [facility] RBC, Urine 3.0 0 - 4 /HPF LAB URINALYSIS - AUTOMATED METHOD 11/11/2024 11:33 AM [facility] WBC, Urine 57.5(H) 0 - 4 /HPF LAB URINALYSIS - AUTOMATED METHOD 11/11/2024 11:33 AM [facility] Squamous Epithelial, Urine >100(H) 0 - 60 /LPF LAB URINALYSIS - AUTOMATED METHOD 11/11/2024 11:33 AM [facility] Bacteria, Urine Negative Negative /HPF LAB URINALYSIS - AUTOMATED METHOD 11/11/2024 11:33 AM EDT [facility] Hyaline Casts, Urine 2.0 0 - 3 /LPF LAB URINALYSIS - AUTOMATED METHOD 11/11/2024 11:33 AM EDT [facility] Urine Urine specimen obtained by clean catch procedure / Unknown Non-blood Collection / Unknown 11/11/2024 11/11/2024 9:44 AM EDT us Shonda Brenner MD LAB URINE ORDERABLES Final Resu lt Performing Organization Address [facility]/ZIP Co de Phone Number [facility] [address] [place] [address], [place] [phone] * Culture urine (11/11/2024 12:00 AM EDT) Culture, Urine <10,000 CFU/mL gram negative bacilli, insignificant count, no further workup 11/12/2024 8:43 AM EDT [facility] Urine Urine specimen obtained by clean catch procedure / Unknown Non-blood Collection / Unknown 11/11/2024 11/11/2024 9:44 AM EDT us Shonda Brenner MD LAB MICROBIOLOGY - GENERAL ORDE RABLES Final Result Performing Organization Address [facility]/ZIP Co de Phone Number [facility] [address] [place] [address], [place] [phone] documented in this encounter Visit Diagnoses Diagnosis Unspecified abdominal pain documented in this encounter Care Teams Proposal Consultant Relationship Specialty Start Date End Date Tram Álvarez MD 2 [facility] [address] Physician Associ D/B/A: [facility] JAS Duque PCP - General Internal Medicine 03/30/18 documented as of this encounter
--- OUTSIDE RECORDS SUMMARY | 2025-03-22 14:39 | XMS_ITS | Encounter Summary ---
Author Organization [facility] Address [address] [place] [address] Care Team Providers Care Tankage Grinder Operator Name Role Phone Tram Álvarez MD Primary Care Provider [phone] Encounter Details Date Type Department Care Team (Late st Contact Info) Description 05/21/2024 Lab Requisition [facility] - Main Lab [address] [place] [address] Prince Le MD 38 [facility] [address] [place], [address] Essential (primary) hypertension Social History Tobacco [...] LAB CHEMISTRY METHOD 05/24/2024 9:02 AM EST [facility] Potassium 4.2 3.5 - 5.5 mmol/L LAB CHEMISTRY METHOD 05/24/2024 9:02 AM EST [facility] Chloride 109 96 [...] Resul t [facility] [address] [place] [address], * (ABNORMAL) Complete blood count (05/24/2024 6:00 AM EST) WBC 9.3 4.8 - 10.8 K/mcL LAB HEMETOLOGY METHOD 05/24/2024 9:03 AM [facility] RBC 4.90 4.50 - 5.50 M/mcL LAB HEMETOLOGY METHOD 05/24/2024 9:03 AM [facility] [...] BLOOD ORDERABLES Final Resul t [facility] [address] [place] [address], [place] [phone] documented in this encounter Visit Diagnoses Diagnosis Essential (primary) hypertension Unspecified essential hypertension documented in this encounter Care Teams Tankage Grinder Operator Relationship Specialty Start Date End Date Tram Álvarez MD 2 [facility] , [address] [place] [address] Physician Associ D/B/A: [facility] JAS Duque PCP - General Internal Medicine 03/30/18 documented as of this encounter
--- OUTSIDE RECORDS SUMMARY | 2025-03-22 14:39 | XMS_ITS | Encounter Summary ---
Author Organization Address [address] [place] [address] Care Team Providers Care Air Conditioning Specialist Name Role Phone Tram Álvarez MD Primary Care Provider [phone] Encounter Details Date Type Department Care Team (Late st Contact Info) Description 10/07/[address] [facility] - Main Lab 299 [facility] [place] [address] Prince Le MD 38 [facility] [address] [place], [address] Type 2 diabetes mellitus without complications [...] V28) documented in this encounter Care Teams Air Conditioning Specialist Relationship Specialty Start Date End Date Tram Álvarez MD [address] [place] [address] , [address] [facility] Physician Associ D/B/A: [facility] [place], [place] PCP - General Internal Medicine 03/30/18 documented as of this encounter
--- OUTSIDE RECORDS SUMMARY | 2025-03-22 14:39 | XMS_ITS | Encounter Summary ---
Author Organization [facility] Address [address] [place] [address] Care Team Providers Care Vocational Rehab Consultant Name Role Phone Tram Álvarez MD Primary Care Provider [phone] Encounter Details Date Type Department Care Team (Late st Contact Info) Description 05/28/2024 Lab Requisition [facility] - Main Lab [address] [place] [address] Prince Le MD 38 [facility] [address] [place], [address] Essential (primary) hypertension Social History Tobacco [...] LAB CHEMISTRY METHOD 05/31/2024 11:37 AM EST [facility] Potassium 4.5 3.5 - 5.5 mmol/L LAB CHEMISTRY METHOD 05/31/2024 11:37 AM EST [facility] Chloride 108 96 - 110 [...] AM [facility] Comment:Calculation based on the Chronic [...] t [facility] [address] [place] [address], * (ABNORMAL) Complete blood count (05/31/2024 7:20 [...] LAB BLOOD ORDERABLES Final Resul t [facility] [address] [place] [address], [place] [phone] documented in this encounter Visit Diagnoses Diagnosis Essential (primary) hypertension Unspecified essential hypertension documented in this encounter Care Teams Vocational Rehab Consultant Relationship Specialty Start Date End Date Tram Álvarez MD 2 [facility] , [address] [facility] Physician Associ D/B/A: [facility] [place], [place] PCP - General Internal Medicine 03/30/18 documented as of this encounter
--- OUTSIDE RECORDS SUMMARY | 2025-03-22 14:39 | XMS_ITS | Encounter Summary ---
Author Organization [facility] Address [address] [place] [address] Care Team Providers Care Promotions Executive Name Role Phone Tram Álvarez MD Primary Care Provider [phone] Encounter Details Date Type Department Care Team (Late st Contact Info) Description 10/07/2024 Lab Requisition [facility] - Main Lab [address] [place] [address] Prince Le MD 38 [facility] [address] [place], [address] Type 2 diabetes mellitus without complications [...] AM EDT) WBC 17.5(H) 4.8 - 10.8 K/[facility] LAB HEMETOLOGY METHOD 10/07/2024 9:[address] [facility] RBC 3.80(L) 4.50 - 5.50 M/mcL LAB HEMETOLOGY METHOD 10/07/2024 9:[address] [facility] Hemoglobin 11.2(L) 13.5 - 17.5 g/dL LAB HEMETOLOGY METHOD 10/07/2024 9:[address] [facility] Hematocrit 35.1(L) 42.0 - 54.0 % LAB HEMETOLOGY METHOD 10/07/2024 9:[address] [facility] MCV 92.4 79.0 - 98.0 FL LAB HEMETOLOGY METHOD 10/07/2024 9:[address] [facility] MCH 29.5 27.0 - 32.0 pcg LAB HEMETOLOGY METHOD 10/07/2024 9:[address] [facility] MCHC 31.9(L) 32.0 - 37.0 g/dL LAB HEMETOLOGY METHOD 10/07/2024 9:[address] [facility] RDW 16.6(H) 11.0 - 15.0 % LAB HEMETOLOGY METHOD 10/07/2024 9:[address] [facility] Platelets 230 130 - 400 K/mcL LAB HEMETOLOGY METHOD 10/07/2024 9:[address] [facility] MPV 13.0(H) 7.0 - 11.0 FL LAB HEMETOLOGY METHOD 10/07/2024 9:[address] [facility] NRBC 0.0 <1.0 % LAB HEMETOLOGY METHOD 10/07/2024 9:[address] [facility] NRBC Absolute 0.00 <0.10 K/mcL LAB HEMETOLOGY METHOD 10/07/2024 9:[address] [facility] Neutrophils Relative 82.3 % LAB HEMETOLOGY METHOD 10/07/2024 9:[address] [facility] Lymphocytes Relative 10.0 % LAB HEMETOLOGY METHOD 10/07/2024 9:[address] [facility] Monocytes Relative 4.6 % LAB HEMETOLOGY METHOD 10/07/2024 9:[address] [facility] Eosinophils Relative 2.2 % LAB HEMETOLOGY METHOD 10/07/2024 9:[address] [facility] Basophils Relative 0.3 % LAB HEMETOLOGY METHOD 10/07/2024 9:[address] [facility] Immature Granulocytes Relative 0.6 % LAB HEMETOLOGY METHOD 10/07/2024 9:[address] [facility] Neutrophils Absolute 14.41(H) 1.50 - 7.00 K/mcL LAB HEMETOLOGY METHOD 10/07/2024 9:[address] [facility] Lymphocytes Absolute 1.74 1.00 - 5.00 K/mcL LAB HEMETOLOGY METHOD 10/07/2024 9:[address] [facility] Monocytes Absolute 0.80 0.20 - 1.00 K/mcL LAB HEMETOLOGY METHOD 10/07/2024 9:[address] [facility] Eosinophils Absolute 0.38 0.00 - 0.50 K/mcL LAB HEMETOLOGY METHOD 10/07/2024 9:[address] [facility] Basophils Absolute 0.05 0.00 - 0.20 K/mcL LAB HEMETOLOGY METHOD 10/07/2024 9:[address] [facility] Immature Granulocytes Absolute 0.10(H) 0.00 - 0.03 K/mcL LAB HEMETOLOGY METHOD 10/07/2024 9:[address] [facility] Blood Venous blood specimen / Unknown Venipuncture / Unknown 10/07/2024 5:18 AM EDT 10/07/2024 8:56 AM EDT us Prince Le MD LAB BLOOD ORDERABLES Final Resul t [facility] [address] [place] [address], [place] [phone] * (ABNORMAL) Basic metabolic panel (10/07/2024 5:18 AM EDT) Sodium 132(L) 133 - 145 mmol/L LAB CHEMISTRY METHOD 10/07/2024 10:[address] [facility] Potassium 5.0 3.5 - 5.5 mmol/L LAB CHEMISTRY METHOD 10/07/2024 10:[address] [facility] Chloride 99 96 - 110 mmol/L LAB CHEMISTRY METHOD 10/07/2024 10:[address] [facility] CO2 22 21 - 32 mmol/L LAB CHEMISTRY METHOD 10/07/2024 10:[address] [facility] Anion Gap 11 3 - 11 LAB CHEMISTRY METHOD 10/07/2024 10:[address] [facility] Glucose 82 70 - 100 mg/dL LAB CHEMISTRY METHOD 10/07/2024 10:[address] [facility] BUN 54(H) 5 - 25 mg/dL LAB CHEMISTRY METHOD 10/07/2024 10:[address] [facility] Creatinine 2.44(H) 0.70 - 1.30 mg/dL LAB CHEMISTRY METHOD 10/07/2024 10:[address] [facility] eGFR 28(L) >=60 mL/min/1. 73m2 LAB CHEMISTRY METHOD 10/07/2024 10:[address] [facility] Comment:Calculation based on the Chronic Kidney Disease Epidemiology Collaboration (CKD-EPI) equation refit without adjustment for race. BUN/Creatinine Ratio 22.1 LAB CHEMISTRY METHOD 10/07/2024 10:16 AM T [facility] Calcium 8.9 8.5 - 10.5 mg/dL LAB CHEMISTRY METHOD 10/07/2024 10:16 AM EDT [facility] Blood Venous blood specimen / Unknown Venipuncture / Unknown 10/07/2024 5:18 AM EDT 10/07/2024 8:56 AM EDT us Prince Le MD LAB BLOOD ORDERABLES Final Resul t [facility] [address] [place] [address], [place] [phone] documented in this encounter Visit Diagnoses Diagnosis Type 2 diabetes mellitus without complications (CMS/HCC V24, CMS/HCC V28) documented in this encounter Care Teams Promotions Executive Relationship Specialty Start Date End Date Tram Álvarez MD 2 [facility] , [address] [place] [address] Physician Associ D/B/A: [facility] [place] PCP - General Internal Medicine 03/30/18 documented as of this encounter
--- OUTSIDE RECORDS SUMMARY | 2025-03-22 14:39 | XMS_ITS | Encounter Summary ---
Author Organization [facility] Address [address] [place] [address] Care Team Providers Care English Horn Player Name Role Phone Tram Álvarez MD Primary Care Provider [phone] Encounter Details Date Type Department Care Team (Late st Contact Info) Description 11/18/2024 Lab Requisition [facility] - Main Lab 299 [facility] [place] [address] Preeti Lujan MD [address] [phone] Chronic kidney disease, stage 3 unspecified (CMS/HCC [...] LAB CHEMISTRY METHOD 11/18/2024 10:12 AM EDT [facility] Potassium 4.6 3.5 - 5.5 mmol/L LAB CHEMISTRY METHOD 11/18/2024 10:12 AM [facility] Chloride 112(H) 96 - 110 mmol/L LAB CHEMISTRY METHOD 11/18/2024 10:12 AM [facility] CO2 25 21 - 32 mmol/L LAB CHEMISTRY METHOD 11/18/2024 10:12 AM [facility] Anion Gap 6 3 - 11 LAB CHEMISTRY METHOD 11/18/2024 10:12 AM [facility] Glucose 105(H) 70 - 100 mg/dL LAB CHEMISTRY METHOD 11/18/2024 10:12 AM [facility] BUN 26(H) 5 - 25 mg/dL LAB CHEMISTRY METHOD 11/18/2024 10:12 AM [facility] Creatinine 0.63(L) 0.70 - 1.30 mg/dL LAB CHEMISTRY METHOD 11/18/2024 10:12 AM [facility] eGFR 103 >=60 mL/min/1. 73m2 LAB CHEMISTRY METHOD 11/18/2024 10:12 AM [facility] Comment:Calculation based on the Chronic Kidney Disease Epidemiology Collaboration (CKD-EPI) equation refit without adjustment for race. BUN/Creatinine Ratio 41.3 LAB CHEMISTRY METHOD 11/18/2024 10:12 AM [facility] Calcium 8.8 8.5 - 10.5 mg/dL LAB CHEMISTRY METHOD 11/18/2024 10:12 AM [facility] Blood Venous blood specimen / Unknown Venipuncture / Unknown 11/18/2024 6:05 AM EDT 11/18/2024 9:23 AM EDT us rPeeti Lujan MD LAB BLOOD ORDERABLES Fin al Result [facility] [address] [place] [address], documented in this encounter Visit Diagnoses Diagnosis Chronic kidney disease, stage 3 unspecified (CMS/[facility] V24, [facility] V28) Spinal stenosis, lumbar region without neurogenic claudication documented in this encounter Care Teams English Horn Player Relationship Specialty Start Date End Date Tram Álvarez MD 2 [facility] , [address] [place] [address] Physician Associ D/B/A: [facility] JAS Duque PCP - General Internal Medicine 03/30/18 documented as of this encounter
--- OUTSIDE RECORDS SUMMARY | 2025-03-22 14:39 | XMS_ITS | Encounter Summary ---
Author Organization [facility] Address [address] [place] [address] Care Team Providers Care Cleaning Handyman Name Role Phone Tram Álvarez MD Primary Care Provider [phone] Encounter Details Date Type Department Care Team (Late st Contact Info) Description 07/22/[address] [facility] - Main Lab [address] [place] [address] Prince Le MD 38 [facility] [address] [place], [address] Type 2 diabetes mellitus without complications [...] mg/dL LAB CHEMISTRY METHOD 07/23/2024 10:47 AM [facility] Blood Venous blood specimen / Unknown Venipuncture / Unknown 07/23/2024 6:52 AM EST 07/23/2024 9:26 AM EST us Prince Le MD LAB BLOOD ORDERABLES Final Resul t [facility] [address] [place] [address], * (ABNORMAL) Comprehensive metabolic panel (07/23/2024 6:52 AM EST) Sodium 137 133 - 145 mmol/L LAB CHEMISTRY METHOD 07/23/2024 10:47 AM [facility] Potassium 5.3 3.5 - 5.5 mmol/L LAB CHEMISTRY METHOD 07/23/2024 10:47 AM [facility] Chloride 102 96 - 110 mmol/L LAB CHEMISTRY METHOD 07/23/2024 10:47 AM [facility] CO2 28 21 - 32 mmol/L LAB CHEMISTRY METHOD 07/23/2024 10:47 AM [facility] Anion Gap 7 3 - 11 LAB CHEMISTRY METHOD 07/23/2024 10:47 AM [facility] Glucose 78 70 - 100 mg/dL LAB CHEMISTRY METHOD 07/23/2024 10:47 AM [facility] BUN 39(H) 5 - 25 mg/dL LAB CHEMISTRY METHOD 07/23/2024 10:47 AM [facility] Creatinine 1.58(H) 0.70 - 1.30 mg/dL LAB CHEMISTRY METHOD 07/23/2024 10:47 AM [facility] eGFR 47(L) >=60 mL/min/1. 73m2 LAB CHEMISTRY METHOD 07/23/2024 10:47 AM [facility] Comment:Calculation based on the Chronic Kidney Disease Epidemiology Collaboration (CKD-EPI) equation refit without adjustment for race. BUN/Creatinine Ratio 24.7 LAB CHEMISTRY METHOD 07/23/2024 10:47 AM [facility] Calcium 9.5 8.5 - 10.5 mg/dL LAB CHEMISTRY METHOD 07/23/2024 10:47 AM [facility] AST (SGOT) 25 10 - 42 unit/L LAB CHEMISTRY METHOD 07/23/2024 10:47 AM [facility] ALT (SGPT) 26 10 - 60 unit/L LAB CHEMISTRY METHOD 07/23/2024 10:47 AM [facility] Alkaline Phosphatase 68 42 - 121 unit/L LAB CHEMISTRY METHOD 07/23/2024 10:47 AM [facility] Total Protein 6.9 6.0 - 8.0 g/dL LAB CHEMISTRY METHOD 07/23/2024 10:47 AM [facility] Albumin 3.5 3.2 - 5.0 g/dL LAB CHEMISTRY METHOD 07/23/2024 10:47 AM [facility] Total Bilirubin 0.4 0.0 - 1.4 mg/dL LAB CHEMISTRY METHOD 07/23/2024 10:47 AM [facility] Blood Venous blood specimen / Unknown Venipuncture / Unknown 07/23/2024 6:52 AM EST 07/23/2024 9:26 AM EST us Prince Le MD LAB BLOOD ORDERABLES Final Resul t [facility] [address] [place] [address], * (ABNORMAL) Complete blood count (07/23/2024 6:52 AM EST) WBC 9.2 4.8 - 10.8 K/mcL LAB HEMETOLOGY METHOD 07/23/2024 10:13 AM EST [facility] RBC 4.90 4.50 - 5.50 M/mcL LAB HEMETOLOGY METHOD 07/23/2024 10:13 AM [facility] Hemoglobin 13.6 13.5 - 17.5 g/dL LAB HEMETOLOGY METHOD 07/23/2024 10:13 AM [facility] Hematocrit 41.2(L) 42.0 - 54.0 % LAB HEMETOLOGY METHOD 07/23/2024 10:13 AM [facility] LAB MCV 83.7 79.0 - 98.0 FL LAB HEMETOLOGY METHOD 07/23/2024 10:13 AM [facility] MCH 27.6 27.0 - 32.0 pcg LAB HEMETOLOGY METHOD 07/23/2024 10:13 AM [facility] MCHC 33.0 32.0 - 37.0 g/dL LAB HEMETOLOGY METHOD 07/23/2024 10:13 AM [facility] RDW 19.0(H) 11.0 - 15.0 % LAB HEMETOLOGY METHOD 07/23/2024 10:13 AM [facility] Platelets 364 130 - 400 K/mcL LAB HEMETOLOGY METHOD 07/23/2024 10:13 AM [facility] MPV 12.2(H) 7.0 - 11.0 FL LAB HEMETOLOGY METHOD 07/23/2024 10:13 AM [facility] NRBC 0.0 <1.0 % LAB HEMETOLOGY METHOD 07/23/2024 10:13 AM [facility] NRBC Absolute 0.00 <0.10 K/mcL LAB HEMETOLOGY METHOD 07/23/2024 10:13 AM [facility] Blood Venous blood specimen / Unknown Venipuncture / Unknown 07/23/2024 6:52 AM EST 07/23/2024 9:26 AM EST us Prince Le MD LAB BLOOD ORDERABLES Final Resul t [facility]) [facility] [address] [place] [address], documented in this encounter Visit Diagnoses Diagnosis Type 2 diabetes mellitus without complications (CMS/HCC V24, CMS/HCC V28) documented in this encounter Care Teams Cleaning Handyman Relationship Specialty Start Date End Date Tram Álvarez MD 2 [facility] , [address] [facility] Physician Associ D/B/A: [facility] [place], [place] PCP - General Internal Medicine 03/30/18 documented as of this encounter
--- OUTSIDE RECORDS SUMMARY | 2025-03-22 14:39 | XMS_ITS | Encounter Summary ---
Author Organization [facility] Address [address] [place] [address] Care Team Providers Care Napper Fixer Name Role Phone Tram Álvarez MD Primary Care Provider [phone] Encounter Details Date Type Department Care Team (Late st Contact Info) Description 07/29/2024 Lab Requisition [facility] - Main Lab [address] [place] [address] Prince Le MD 38 [facility] [address] [place], [address] Type 2 diabetes mellitus without complications [...] mg/dL LAB CHEMISTRY METHOD 07/30/2024 10:[address] [facility] Blood Venous blood specimen / Unknown Venipuncture / Unknown 07/30/2024 7:30 AM EST 07/30/2024 9:39 AM EST us Prince Le MD LAB BLOOD ORDERABLES Final Resul t [facility] [address] [place] [address], * (ABNORMAL) Comprehensive metabolic panel (07/30/2024 7:30 AM EST) Sodium 140 133 - 145 mmol/L LAB CHEMISTRY METHOD 07/30/2024 10:[address] [facility] Potassium 5.1 3.5 - 5.5 mmol/L LAB CHEMISTRY METHOD 07/30/2024 10:[address] [facility] Chloride 107 96 - 110 mmol/L LAB CHEMISTRY METHOD 07/30/2024 10:[address] [facility] CO2 31 21 - 32 mmol/L LAB CHEMISTRY METHOD 07/30/2024 10:[address] [facility] Anion Gap 2(L) 3 - 11 LAB CHEMISTRY METHOD 07/30/2024 10:[address] [facility] Glucose 76 70 - 100 mg/dL LAB CHEMISTRY METHOD 07/30/2024 10:[address] [facility] BUN 28(H) 5 - 25 mg/dL LAB CHEMISTRY METHOD 07/30/2024 10:[address] [facility] Creatinine 1.13 0.70 - 1.30 mg/dL LAB CHEMISTRY METHOD 07/30/2024 10:[address] [facility] eGFR 71 >=60 mL/min/1. 73m2 LAB CHEMISTRY METHOD 07/30/2024 10:[address] [facility] Comment:Calculation based on the Chronic Kidney Disease Epidemiology Collaboration (CKD-EPI) equation refit without adjustment for race. BUN/Creatinine Ratio 24.8 LAB CHEMISTRY METHOD 07/30/2024 10:[address] [facility] Calcium 9.5 8.5 - 10.5 mg/dL LAB CHEMISTRY METHOD 07/30/2024 10:[address] [facility] AST (SGOT) 28 10 - 42 unit/L LAB CHEMISTRY METHOD 07/30/2024 10:[address] [facility] ALT (SGPT) 24 10 - 60 unit/L LAB CHEMISTRY METHOD 07/30/2024 10:[address] [facility] Alkaline Phosphatase 62 42 - 121 unit/L LAB CHEMISTRY METHOD 07/30/2024 10:[address] [facility] Total Protein 6.4 6.0 - 8.0 g/dL LAB CHEMISTRY METHOD 07/30/2024 10:[address] [facility] Albumin 3.2 3.2 - 5.0 g/dL LAB CHEMISTRY METHOD 07/30/2024 10:[address] [facility] Total Bilirubin 0.4 0.0 - 1.4 mg/dL LAB CHEMISTRY METHOD 07/30/2024 10:[address] [facility] Blood Venous blood specimen / Unknown Venipuncture / Unknown 07/30/2024 7:30 AM EST 07/30/2024 9:39 AM EST us Prince Le MD LAB BLOOD ORDERABLES Final Resul t [facility] [address] [place] [address], * (ABNORMAL) Complete blood count (07/30/2024 7:30 AM EST) WBC 8.9 4.8 - 10.8 K/mcL LAB HEMETOLOGY METHOD 07/30/2024 9:55 AM EST [facility] RBC 4.30(L) 4.50 - 5.50 M/mcL LAB HEMETOLOGY METHOD 07/30/2024 9:[address] [facility] Hemoglobin 12.1(L) 13.5 - 17.5 g/dL LAB HEMETOLOGY METHOD 07/30/2024 9:[address] [facility] Hematocrit 36.5(L) 42.0 - 54.0 % LAB HEMETOLOGY METHOD 07/30/2024 9:[address] [facility] MCV 84.3 79.0 - 98.0 FL LAB HEMETOLOGY METHOD 07/30/2024 9:[address] [facility] MCH 27.9 27.0 - 32.0 pcg LAB HEMETOLOGY METHOD 07/30/2024 9:[address] [facility] MCHC 33.2 32.0 - 37.0 g/dL LAB HEMETOLOGY METHOD 07/30/2024 9:[address] [facility] RDW 19.4(H) 11.0 - 15.0 % LAB HEMETOLOGY METHOD 07/30/2024 9:[address] [facility] Platelets 315 130 - 400 K/mcL LAB HEMETOLOGY METHOD 07/30/2024 9:[address] [facility] MPV 12.7(H) 7.0 - 11.0 FL LAB HEMETOLOGY METHOD 07/30/2024 9:[address] [facility] NRBC 0.0 <1.0 % LAB HEMETOLOGY METHOD 07/30/2024 9:[address] [facility] NRBC Absolute 0.00 <0.10 K/mcL LAB HEMETOLOGY METHOD 07/30/2024 9:[address] [facility] Blood Venous blood specimen / Unknown Venipuncture / Unknown 07/30/2024 7:30 AM EST 07/30/2024 9:39 AM EST us Prince Le MD LAB BLOOD ORDERABLES Final Resul t [facility] [address] [place] [address], documented in this encounter Visit Diagnoses Diagnosis Type 2 diabetes mellitus without complications (CMS/HCC V24, CMS/HCC V28) documented in this encounter Care Teams Napper Fixer Relationship Specialty Start Date End Date Tram Álvarez MD 2 [facility] , [address] [facility] Physician Associ D/B/A: [facility] JAS Duque PCP - General Internal Medicine 03/30/18 documented as of this encounter
--- OUTSIDE RECORDS SUMMARY | 2025-03-22 14:39 | XMS_ITS | Encounter Summary ---
Author Organization [facility] Address [address] [place] [address] Care Team Providers Care Inpatient Care Manager Rn Name Role Phone Tram Álvarez MD Primary Care Provider [phone] Encounter Details Date Type Department Care Team (Late st Contact Info) Description 10/18/2024 Lab Requisition [facility] - Main Lab [address] [place] [address] Preeti Lujan MD [address] [phone] Sepsis, unspecified organism (CMS/HCC V24, CMS/HCC V28) [...] LAB CHEMISTRY METHOD 10/18/2024 1:15 PM EDT [facility] LAB Potassium 4.0 3.5 - 5.5 mmol/L LAB CHEMISTRY METHOD 10/18/2024 1:15 PM [facility] LAB Chloride 113(H) 96 - 110 mmol/L LAB CHEMISTRY METHOD 10/18/2024 1:15 PM [facility] LAB CO2 22 21 - 32 mmol/L LAB CHEMISTRY METHOD 10/18/2024 1:15 PM [facility] LAB Anion Gap 7 3 - 11 LAB CHEMISTRY METHOD 10/18/2024 1:15 PM [facility] LAB Glucose 114(H) 70 - 100 mg/dL LAB CHEMISTRY METHOD 10/18/2024 1:15 PM [facility] LAB BUN 12 5 - 25 mg/dL LAB CHEMISTRY METHOD 10/18/2024 1:15 PM [facility] LAB Creatinine 0.58(L) 0.70 - 1.30 mg/dL LAB CHEMISTRY METHOD 10/18/2024 1:15 PM [facility] LAB eGFR 106 >=60 mL/min/1. 73m2 LAB CHEMISTRY METHOD 10/18/2024 1:15 PM [facility] LAB Comment:Calculation based on the Chronic Kidney Disease Epidemiology Collaboration (CKD-EPI) equation refit without adjustment for race. BUN/Creatinine Ratio 20.7 LAB CHEMISTRY METHOD 10/18/2024 1:15 PM [facility] LAB Calcium 8.7 8.5 - 10.5 mg/dL LAB CHEMISTRY METHOD 10/18/2024 1:15 PM [facility] LAB Blood Venous blood specimen / Unknown Venipuncture / Unknown 10/18/2024 9:03 AM EDT 10/18/2024 11:02 AM EDT us Preeti Lujan MD LAB BLOOD ORDERABLES Fin al Result [facility] LAB [address] [place] [address], [place] [phone] * (ABNORMAL) Complete blood count (10/18/2024 9:03 AM EDT) [facility] WBC 5.9 4.8 - 10.8 K/mcL LAB HEMETOLOGY METHOD 10/18/2024 1:35 PM EDT [facility] LAB RBC 3.40(L) 4.50 - 5.50 M/mcL LAB HEMETOLOGY METHOD 10/18/2024 1:35 PM EDT [facility] LAB Hemoglobin 10.1(L) 13.5 - 17.5 g/dL LAB HEMETOLOGY METHOD 10/18/2024 1:35 PM [facility] LAB Hematocrit 32.3(L) 42.0 - 54.0 % LAB HEMETOLOGY METHOD 10/18/2024 1:35 PM [facility] LAB MCV 96.4 79.0 - 98.0 FL LAB HEMETOLOGY METHOD 10/18/2024 1:35 PM [facility] MCH 30.1 27.0 - 32.0 pcg LAB HEMETOLOGY METHOD 10/18/2024 1:35 PM [facility] LAB MCHC 31.3(L) 32.0 - 37.0 g/dL LAB HEMETOLOGY METHOD 10/18/2024 1:35 PM [facility] LAB RDW 18.2(H) 11.0 - 15.0 % LAB HEMETOLOGY METHOD 10/18/2024 1:35 PM EDT [facility] LAB Platelets 275 130 - 400 K/mcL LAB HEMETOLOGY METHOD 10/18/2024 1:35 PM [facility] LAB MPV 13.2(H) 7.0 - 11.0 FL LAB HEMETOLOGY METHOD 10/18/2024 1:35 PM [facility] NRBC 0.0 <1.0 % LAB HEMETOLOGY METHOD 10/18/2024 1:35 PM EDT [facility] LAB NRBC Absolute 0.00 <0.10 K/mcL LAB HEMETOLOGY METHOD 10/18/2024 1:35 PM EDT [facility] LAB Blood Venous blood specimen / Unknown Venipuncture / Unknown 10/18/2024 9:03 AM EDT 10/18/2024 11:02 AM EDT us Preeti Lujan MD LAB BLOOD ORDERABLES Fin al Result [facility] LAB [address] [place] [address], documented in this encounter Visit Diagnoses Diagnosis Sepsis, unspecified organism (CMS/HCC V24, CMS/HCC V28) documented in this encounter Care Teams Inpatient Care Manager Rn Relationship Specialty Start Date End Date Tram Álvarez MD 2 [facility] , [address] [place] [address] Physician Associ D/B/A: [facility] [place], [place] PCP - General Internal Medicine 03/30/18 documented as of this encounter
--- OUTSIDE RECORDS SUMMARY | 2025-03-22 14:39 | XMS_ITS | Encounter Summary ---
Author Organization [facility] Address [address] [place] [address] Care Team Providers Care Searchlight Operator Name Role Phone Tram Álvarez MD Primary Care Provider [phone] Encounter Details Date Type Department Care Team (Late st Contact Info) Description 10/21/2024 Lab Requisition [facility] - Main Lab 299 [facility] [place] [address] Prince Le MD 38 [facility] [address] [place], [address] Type 2 diabetes mellitus without complications [...] V28) documented in this encounter Care Teams Searchlight Operator Relationship Specialty Start Date End Date Tram Álvarez MD [address] [place] [address] , [address] [facility] Physician Associ D/B/A: [facility] [place], [place] PCP - General Internal Medicine 03/30/18 documented as of this encounter
--- OUTSIDE RECORDS SUMMARY | 2025-03-22 14:39 | XMS_ITS | Clinical Summary ---
Author Organization [address] [facility] Address [address] [place] [address] Phone Care Team Providers Care Packing Machine Tender Name Role Phone Tram Álvarez MD Primary Care Provider [phone] Encounters Date Type Department Care Team Description 03/01/2025 Lab Requisition [facility] Lab [address] [place] [address] Preeti Lujan MD Essential (primary) hypertension 02/24/2025 Lab Requisition [facility] Lab [address] [place] [address] Preeti Lujan MD Essential (primary) [...] 06/04/2022 Social Influencers of Health Screening 06/04/2022 Diabetes: Annual Urine Albumin-Creatinine Ratio (uACR) 05/08/2024 Depression Screening 07/07/2024 COVID-19 Vaccine ( season) 2025 04/10/2023, 09/11/2020, 08/21/2020 Influenza Vaccine (#1) 2025 , 04/07/2023, 05/08/2022, [...] EDT Type 2 diabetes mellitus without complications ([facility] V24, [facility] V28) LIPID PANEL WITH REFLEX TO DIRECT LDL Routine 08/27/2024 6:34 AM EST Type 2 diabetes mellitus without complications ([facility]) from Last 3 Months or Most Recently Relevant to Health Maintenance Results * (ABNORMAL) Basic metabolic panel (03/01/2025 6:05 AM EDT) Only the most recent of2 resultswithin the time period is included. Sodium 141 133 - 145 mmol/L LAB CHEMISTRY METHOD 03/01/2025 11:14 AM [facility] LAB Potassium 4.6 3.5 - 5.5 mmol/L LAB CHEMISTRY METHOD 03/01/2025 11:14 AM [facility] LAB Chloride 112(H) 96 - 110 mmol/L LAB CHEMISTRY METHOD 03/01/2025 11:14 AM [facility] LAB CO2 25 21 - 32 mmol/L LAB CHEMISTRY METHOD 03/01/2025 11:14 AM [facility] LAB Anion Gap 4 3 - 11 LAB CHEMISTRY METHOD 03/01/2025 11:14 AM [facility] LAB Glucose 135(H) 70 - 100 mg/dL LAB CHEMISTRY METHOD 03/01/2025 11:14 AM [facility] BUN 25 5 - 25 mg/dL LAB CHEMISTRY METHOD 03/01/2025 11:14 AM [facility] LAB Creatinine 0.76 0.70 - 1.30 mg/dL LAB CHEMISTRY METHOD 03/01/2025 11:14 AM [facility] LAB eGFR 97 >=60 mL/min/1. 73m2 LAB CHEMISTRY METHOD 03/01/2025 11:14 AM [facility] LAB Comment:Calculation based on the Chronic Kidney Disease Epidemiology Collaboration (CKD-EPI) equation refit without adjustment for race. BUN/Creatinine Ratio 32.9 LAB CHEMISTRY METHOD 03/01/2025 11:14 AM EDT [facility] Calcium 8.5 8.5 - 10.5 mg/dL LAB CHEMISTRY METHOD 03/01/2025 11:14 AM [facility] LAB Blood Venous blood specimen / Unknown Venipuncture / Unknown 03/01/2025 6:05 AM EDT 03/01/2025 8:40 AM EDT us Preeti Lujan MD LAB BLOOD ORDERABLES Fin al Result [facility] [address] [place] [address], * (ABNORMAL) Complete blood count (02/24/2025 6:34 AM EDT) WBC 7.9 4.8 - 10.8 K/mcL LAB HEMETOLOGY METHOD 02/24/2025 9:35 AM [facility] RBC 3.90(L) 4.50 - 5.50 M/mcL LAB HEMETOLOGY METHOD 02/24/2025 9:35 AM [facility] Hemoglobin 11.0(L) 13.5 - 17.5 g/dL LAB HEMETOLOGY METHOD 02/24/2025 9:35 AM [facility] LAB Hematocrit 36.9(L) 42.0 - 54.0 % LAB HEMETOLOGY METHOD 02/24/2025 9:35 AM [facility] LAB MCV 95.3 79.0 - 98.0 FL LAB HEMETOLOGY METHOD 02/24/2025 9:35 AM [facility] MCH 28.4 27.0 - [...] al Result [facility] [address] [place] [address], * Hemoglobin A1c (10/22/2024 6:43 AM EDT) [...] ORDERABLES Fin al Result Performing Organization Address City/[facility]/ZIP Co de Phone Number [facility] [address] [place] [address], [place] [phone] * (ABNORMAL) Lipid panel with reflex to direct LDL (08/27/2024 6:34 AM EST) [facility] Cholesterol 96 0 - 200 mg/dL LAB CHEMISTRY METHOD 08/27/2024 9:27 AM EST [facility] Triglycerides 249(H) 0 - 150 mg/dL LAB CHEMISTRY METHOD 08/27/2024 9:27 AM [facility] HDL 30(L) >=40 mg/dL [...] 4.4 LAB CHEMISTRY METHOD 08/27/2024 9:27 AM [facility] Blood Venous blood specimen / Unknown Venipuncture / Unknown 08/27/2024 6:34 AM EST 08/27/2024 8:52 AM EST us Prince Le MD LAB BLOOD ORDERABLES Final Resul t Performing Organization Address [facility]/ZIP Co de Phone Number [facility] [address] [place] [address], [place] [phone] from Last 3 Months or Most Recently Relevant to Health Maintenance Insurance [employer] Member Subscriber Plan / Payer (Ef fective 2023-Present) Name:EDER GARCIA Relation to Subscriber:Self Name:Rick Eder Talamantes Payer ID:[id number] Group ID:[id number] Type:Not on file Address: [place] [address] [address] [id number] Care Teams Packing Machine Tender Relationship Specialty Start Date End Date Tram Álvarez MD [address] [place] [address] , [address] [facility] Physician Associ D/B/A: [facility] JAS Duque PCP - General Internal Medicine 03/30/18
--- OUTSIDE RECORDS SUMMARY | 2025-03-22 14:39 | XMS_ITS | Clinical Summary ---
Author Organization [facility] Address [address] [place] [address] Care Team Providers Care Certified Nurse Practitioner Name Role Phone Sade Dykes PA-C Primary Care Provider [phone] Source Comments PLEASE NOTE, if this patient [...] 60 Tab 0 12/01/19 14 Active Acidophilus-Pectin, [place] 25 million-100 cell-mg tabIndications:Dive rticulosis Take 1 tablet by mouth 2 (two) times daily. As directed by transmission calibration engineer 100 tablet 3 01/31/20 14 Active benazepril [...] Plan of Treatment Not on file Insurance [facility] [employer] Care Teams Certified Nurse Practitioner Relationship Specialty Start Date End Date Sade Dykes PA-C [address] [place] [address] [facility] - General 04/14/13
--- OUTSIDE RECORDS SUMMARY | 2025-03-22 14:39 | XMS_ITS | Encounter Summary ---
Author Organization [facility] Address [address] [place] [address] Care Team Providers Care Mortgage Analyst Name Role Phone Tram Álvarez MD Primary Care Provider [phone] Encounter Details Date Type Department Care Team (Late st Contact Info) Description 08/05/[address] [facility] - Main Lab [address] [place] [address] Prince Le MD 38 [facility] [address] [place], [address] Type 2 diabetes mellitus without complications [...] mg/dL LAB CHEMISTRY METHOD 08/06/2024 9:31 AM [facility] LAB Blood Venous blood specimen / Unknown Venipuncture / Unknown 08/06/2024 6:49 AM EST 08/06/2024 8:31 AM EST us Prince Le MD LAB BLOOD ORDERABLES Final Resul t [facility] LAB [address] [place] [address], * Comprehensive metabolic panel (08/06/2024 6:49 AM EST) Sodium 140 133 - 145 mmol/L LAB CHEMISTRY METHOD 08/06/2024 9:31 AM [facility] LAB Potassium 5.0 3.5 - 5.5 mmol/L LAB CHEMISTRY METHOD 08/06/2024 9:31 AM [facility] Chloride 106 96 - 110 mmol/L LAB CHEMISTRY METHOD 08/06/2024 9:31 AM [facility] CO2 30 21 - 32 mmol/L LAB CHEMISTRY METHOD 08/06/2024 9:31 AM [facility] LAB Anion Gap 4 3 - 11 LAB CHEMISTRY METHOD 08/06/2024 9:31 AM [facility] Glucose 99 70 - 100 mg/dL LAB CHEMISTRY METHOD 08/06/2024 9:31 AM [facility] BUN 25 5 - 25 mg/dL LAB CHEMISTRY METHOD 08/06/2024 9:31 AM [facility] LAB Creatinine 1.10 0.70 - 1.30 mg/dL LAB CHEMISTRY METHOD 08/06/2024 9:31 AM [facility] LAB eGFR 73 >=60 mL/min/1. 73m2 LAB CHEMISTRY METHOD 08/06/2024 9:31 AM [facility] LAB Comment:Calculation based on the Chronic Kidney Disease Epidemiology Collaboration (CKD-EPI) equation refit without adjustment for race. BUN/Creatinine Ratio 22.7 LAB CHEMISTRY METHOD 08/06/2024 9:31 AM [facility] Calcium 9.5 8.5 - 10.5 mg/dL LAB CHEMISTRY METHOD 08/06/2024 9:31 AM [facility] AST (SGOT) 33 10 - 42 unit/L LAB CHEMISTRY METHOD 08/06/2024 9:31 AM [facility] ALT (SGPT) 26 10 - 60 unit/L LAB CHEMISTRY METHOD 08/06/2024 9:31 AM [facility] Alkaline Phosphatase 51 42 - 121 unit/L LAB CHEMISTRY METHOD 08/06/2024 9:31 AM [facility] Total Protein 6.6 6.0 - 8.0 g/dL LAB CHEMISTRY METHOD 08/06/2024 9:31 AM [facility] Albumin 3.4 3.2 - 5.0 g/dL LAB CHEMISTRY METHOD 08/06/2024 9:31 AM [facility] Total Bilirubin 0.4 0.0 - 1.4 mg/dL LAB CHEMISTRY METHOD 08/06/2024 9:31 AM [facility] Blood Venous blood specimen / Unknown Venipuncture / Unknown 08/06/2024 6:49 AM EST 08/06/2024 8:31 AM EST us Prince Le MD LAB BLOOD ORDERABLES Final Resul t [facility] [address] [place] [address], * (ABNORMAL) Complete blood count (08/06/2024 6:49 AM EST) WBC 8.2 4.8 - 10.8 K/mcL LAB HEMETOLOGY METHOD 08/06/2024 9:12 AM EST [facility] RBC 4.50 4.50 - 5.50 M/mcL LAB HEMETOLOGY METHOD 08/06/2024 9:12 AM [facility] Hemoglobin 12.2(L) 13.5 - 17.5 g/dL LAB HEMETOLOGY METHOD 08/06/2024 9:12 AM [facility] Hematocrit 37.4(L) 42.0 - 54.0 % LAB HEMETOLOGY METHOD 08/06/2024 9:12 AM [facility] LAB MCV 84.0 79.0 - 98.0 FL LAB HEMETOLOGY METHOD 08/06/2024 9:12 AM [facility] LAB MCH 27.4 27.0 - 32.0 pcg LAB HEMETOLOGY METHOD 08/06/2024 9:12 AM [facility] MCHC 32.6 32.0 - 37.0 g/dL LAB HEMETOLOGY METHOD 08/06/2024 9:12 AM [facility] RDW 20.3(H) 11.0 - 15.0 % LAB HEMETOLOGY METHOD 08/06/2024 9:12 AM [facility] Platelets 351 130 - 400 K/mcL LAB HEMETOLOGY METHOD 08/06/2024 9:12 AM [facility] MPV 12.2(H) 7.0 - 11.0 FL LAB HEMETOLOGY METHOD 08/06/2024 9:12 AM [facility] NRBC 0.0 <1.0 % LAB HEMETOLOGY METHOD 08/06/2024 9:12 AM [facility] NRBC Absolute 0.00 <0.10 K/mcL LAB HEMETOLOGY METHOD 08/06/2024 9:12 AM [facility] LAB Blood Venous blood specimen / Unknown Venipuncture / Unknown 08/06/2024 6:49 AM EST 08/06/2024 8:31 AM EST us Prince Le MD LAB BLOOD ORDERABLES Final Resul t [facility] [address] [place] [address], documented in this encounter Visit Diagnoses Diagnosis Type 2 diabetes mellitus without complications (CMS/HCC V24, CMS/HCC V28) documented in this encounter Care Teams Mortgage Analyst Relationship Specialty Start Date End Date Tram Álvarez MD 2 [facility] , [address] [facility] Physician Associ D/B/A: [facility] [place] PCP - General Internal Medicine 03/30/18 documented as of this encounter
--- OUTSIDE RECORDS SUMMARY | 2025-03-22 14:39 | XMS_ITS | Encounter Summary ---
Author Organization [facility] Address [address] [place] [address] Care Team Providers Care Vacuum Pan Operator Name Role Phone Tram Álvarez MD Primary Care Provider [phone] Encounter Details Date Type Department Care Team (Late st Contact Info) Description 09/09/2024 Lab Requisition [facility] - Main Lab 299 [facility] [place] [address] Prince Le MD 38 [facility] [address] [place], [address] Type 2 diabetes mellitus without complications [...] V28) documented in this encounter Care Teams Vacuum Pan Operator Relationship Specialty Start Date End Date Tram Álvarez MD [address] [place] [address] , [address] [facility] Physician Associ D/B/A: [facility] [place], [place] PCP - General Internal Medicine 03/30/18 documented as of this encounter
--- OUTSIDE RECORDS SUMMARY | 2025-03-22 14:39 | XMS_ITS | Encounter Summary ---
Author Organization [facility] Address [address] [place] [address] Care Team Providers Care Community Service Worker Name Role Phone Tram Álvarez MD Primary Care Provider [phone] Encounter Details Date Type Department Care Team (Late st Contact Info) Description 08/26/2024 Lab Requisition [facility] - Main Lab 299 [facility] [place] [address] Prince Le MD 38 [facility] [address] [place], [address] Type 2 diabetes mellitus without complications [...] Resul t [facility] [address] [place] [address], * (ABNORMAL) C-reactive protein (08/27/2024 6:34 AM EST) C-Reactive Protein 1.47(H) <=0.50 mg/dL LAB CHEMISTRY METHOD 08/27/2024 9:27 AM [facility] LAB Blood Venous blood specimen / Unknown Venipuncture / Unknown 08/27/2024 6:34 AM EST 08/27/2024 8:52 AM EST us Prince Le MD LAB BLOOD ORDERABLES Final Resul t [facility] [address] [place] [address], [place] [phone] * (ABNORMAL) Comprehensive metabolic panel (08/27/2024 6:34 [...] Resul t [facility] [address] [place] [address], * (ABNORMAL) Complete blood count (08/27/2024 6:34 [...] Resul t [facility] [address] [place] [address], documented in this encounter Visit Diagnoses Diagnosis Type 2 diabetes mellitus without complications (CMS/HCC V24, CMS/HCC V28) documented in this encounter Care Teams Community Service Worker Relationship Specialty Start Date End Date Tram Álvarez MD 2 [facility] , [address] [facility] Physician Associ D/B/A: [facility] [place], [place] PCP - General Internal Medicine 03/30/18 documented as of this encounter
--- OUTSIDE RECORDS SUMMARY | 2025-03-22 14:39 | XMS_ITS | Encounter Summary ---
Author Organization [facility] Address [address] [place] [address] Care Team Providers Care County Agent Name Role Phone Tram Álvarez MD Primary Care Provider [phone] Encounter Details Date Type Department Care Team (Late st Contact Info) Description 03/01/2025 Lab Requisition [facility] - Main Lab 299 [facility] [place] [address] Preeti Lujan MD [address] [id number] Essential (primary) hypertension Social History Tobacco Use [...] LAB CHEMISTRY METHOD 03/01/2025 11:14 AM EDT [facility] Potassium 4.6 3.5 - 5.5 mmol/L LAB CHEMISTRY METHOD 03/01/2025 11:14 AM [facility] Chloride 112(H) 96 - 110 mmol/L LAB CHEMISTRY METHOD 03/01/2025 11:14 AM [facility] LAB CO2 25 21 - 32 mmol/L LAB CHEMISTRY METHOD 03/01/2025 11:14 AM [facility] LAB Anion Gap 4 3 - 11 LAB CHEMISTRY METHOD 03/01/2025 11:14 AM [facility] LAB Glucose 135(H) 70 - 100 mg/dL LAB CHEMISTRY METHOD 03/01/2025 11:14 AM [facility] BUN 25 5 - 25 mg/dL LAB CHEMISTRY METHOD 03/01/2025 11:14 AM [facility] Creatinine 0.76 0.70 - 1.30 mg/dL LAB CHEMISTRY METHOD 03/01/2025 11:14 AM [facility] LAB eGFR 97 >=60 mL/min/1. 73m2 LAB CHEMISTRY METHOD 03/01/2025 11:14 AM [facility] LAB Comment:Calculation based on the Chronic Kidney Disease Epidemiology Collaboration (CKD-EPI) equation refit without adjustment for race. BUN/Creatinine Ratio 32.9 LAB CHEMISTRY METHOD 03/01/2025 11:14 AM [facility] LAB Calcium 8.5 8.5 - 10.5 mg/dL LAB CHEMISTRY METHOD 03/01/2025 11:14 AM [facility] LAB Blood Venous blood specimen / Unknown Venipuncture / Unknown 03/01/2025 6:05 AM EDT 03/01/2025 8:40 AM EDT us Preeti Lujan MD LAB BLOOD ORDERABLES Fin al Result [facility] [address] [place] [address], documented in this encounter Visit Diagnoses Diagnosis Essential (primary) hypertension Unspecified essential hypertension documented in this encounter Care Teams County Agent Relationship Specialty Start Date End Date Tram Álvarez MD 2 [facility] , [address] Physician Associ D/B/A: [facility] JAS Duque PCP - General Internal Medicine 03/30/18 documented as of this encounter
--- OUTSIDE RECORDS SUMMARY | 2025-03-22 14:39 | XMS_ITS | Encounter Summary ---
Author Organization [facility] Address [address] [place] [address] Care Team Providers Care Sports Photographer Name Role Phone Tram Álvarez MD Primary Care Provider [phone] Encounter Details Date Type Department Care Team (Late st Contact Info) Description 09/02/2024 Lab Requisition [facility] - Main Lab [address] [place] [address] Prince Le MD 38 [facility] [address] [place], [address] Type 2 diabetes mellitus without complications [...] t [facility] [address] [place] [address], * (ABNORMAL) Comprehensive metabolic panel (09/03/2024 6:35 [...] t [facility] [address] [place] [address], * (ABNORMAL) Complete blood count (09/03/2024 6:35 [...] MD LAB BLOOD ORDERABLES Final Resul t [facility] [address] [place] [address], documented in this encounter Visit Diagnoses Diagnosis Type 2 diabetes mellitus without complications (CMS/HCC V24, CMS/HCC V28) documented in this encounter Care Teams Sports Photographer Relationship Specialty Start Date End Date Tram Álvarez MD 2 [facility] , [address] [facility] Physician Associ D/B/A: [facility] JAS Duque PCP - General Internal Medicine 03/30/18 documented as of this encounter
--- OUTSIDE RECORDS SUMMARY | 2025-03-22 14:39 | XMS_ITS | Encounter Summary ---
Author Organization [facility] Address [address] [place] [address] Care Team Providers Care Tower Cleaner Name Role Phone Tram Álvarez MD Primary Care Provider [phone] Encounter Details Date Type Department Care Team (Late st Contact Info) Description 08/12/2024 Lab Requisition [facility] - Main Lab [address] [place] [address] Prince Le MD 38 [facility] [address] [place], [address] Type 2 diabetes mellitus without complications [...] mg/dL LAB CHEMISTRY METHOD 08/13/2024 11:42 AM [facility] Blood Venous blood specimen / Unknown Venipuncture / Unknown 08/13/2024 7:38 AM EST 08/13/2024 11:02 AM EST us Prince Le MD LAB BLOOD ORDERABLES Final Resul t [facility] [address] [place] [address], * (ABNORMAL) Comprehensive metabolic panel (08/13/2024 7:38 AM EST) Sodium 137 133 - 145 mmol/L LAB CHEMISTRY METHOD 08/13/2024 11:42 AM [facility] Potassium 5.1 3.5 - 5.5 mmol/L LAB CHEMISTRY METHOD 08/13/2024 11:42 AM [facility] Chloride 103 96 - 110 mmol/L LAB CHEMISTRY METHOD 08/13/2024 11:42 AM [facility] CO2 29 21 - 32 mmol/L LAB CHEMISTRY METHOD 08/13/2024 11:42 AM [facility] Anion Gap 5 3 - 11 LAB CHEMISTRY METHOD 08/13/2024 11:42 AM [facility] Glucose 90 70 - 100 mg/dL LAB CHEMISTRY METHOD 08/13/2024 11:42 AM [facility] BUN 31(H) 5 - 25 mg/dL LAB CHEMISTRY METHOD 08/13/2024 11:42 AM [facility] Creatinine 0.98 0.70 - 1.30 mg/dL LAB CHEMISTRY METHOD 08/13/2024 11:42 AM [facility] eGFR 84 >=60 mL/min/1. 73m2 LAB CHEMISTRY METHOD 08/13/2024 11:42 AM [facility] Comment:Calculation based on the Chronic Kidney Disease Epidemiology Collaboration (CKD-EPI) equation refit without adjustment for race. BUN/Creatinine Ratio 31.6 LAB CHEMISTRY METHOD 08/13/2024 11:42 AM [facility] Calcium 9.2 8.5 - 10.5 mg/dL LAB CHEMISTRY METHOD 08/13/2024 11:42 AM [facility] AST (SGOT) 36 10 - 42 unit/L LAB CHEMISTRY METHOD 08/13/2024 11:42 AM [facility] ALT (SGPT) 32 10 - 60 unit/L LAB CHEMISTRY METHOD 08/13/2024 11:42 AM [facility] Alkaline Phosphatase 47 42 - 121 unit/L LAB CHEMISTRY METHOD 08/13/2024 11:42 AM [facility] Total Protein 6.4 6.0 - 8.0 g/dL LAB CHEMISTRY METHOD 08/13/2024 11:42 AM [facility] Albumin 3.4 3.2 - 5.0 g/dL LAB CHEMISTRY METHOD 08/13/2024 11:42 AM [facility] Total Bilirubin 0.6 0.0 - 1.4 mg/dL LAB CHEMISTRY METHOD 08/13/2024 11:42 AM [facility] Blood Venous blood specimen / Unknown Venipuncture / Unknown 08/13/2024 7:38 AM EST 08/13/2024 11:02 AM EST us Prince Le MD LAB BLOOD ORDERABLES Final Resul t [facility] [address] [place] [address], * (ABNORMAL) Complete blood count (08/13/2024 7:30 AM EST) WBC 8.4 4.8 - 10.8 K/mcL LAB HEMETOLOGY METHOD 08/13/2024 11:11 AM [facility] RBC 4.20(L) 4.50 - 5.50 M/mcL LAB HEMETOLOGY METHOD 08/13/2024 11:11 AM [facility] Hemoglobin 11.6(L) 13.5 - 17.5 g/dL LAB HEMETOLOGY METHOD 08/13/2024 11:11 AM [facility] Hematocrit 36.1(L) 42.0 - 54.0 % LAB HEMETOLOGY METHOD 08/13/2024 11:11 AM [facility] MCV 86.2 79.0 - 98.0 FL LAB HEMETOLOGY METHOD 08/13/2024 11:11 AM [facility] MCH 27.7 27.0 - 32.0 pcg LAB HEMETOLOGY METHOD 08/13/2024 11:11 AM [facility] MCHC 32.1 32.0 - 37.0 g/dL LAB HEMETOLOGY METHOD 08/13/2024 11:11 AM [facility] RDW 21.2(H) 11.0 - 15.0 % LAB HEMETOLOGY METHOD 08/13/2024 11:11 AM [facility] Platelets 338 130 - 400 K/mcL LAB HEMETOLOGY METHOD 08/13/2024 11:11 AM [facility] MPV 12.8(H) 7.0 - 11.0 FL LAB HEMETOLOGY METHOD 08/13/2024 11:11 AM [facility] NRBC 0.0 <1.0 % LAB HEMETOLOGY METHOD 08/13/2024 11:11 AM [facility] NRBC Absolute 0.00 <0.10 K/mcL LAB HEMETOLOGY METHOD 08/13/2024 11:11 AM [facility] Blood Venous blood specimen / Unknown Venipuncture / Unknown 08/13/2024 7:30 AM EST 08/13/2024 10:59 AM EST us Prince Le MD LAB BLOOD ORDERABLES Final Resul t [facility] ([facility] [address] [place] [address], documented in this encounter Visit Diagnoses Diagnosis Type 2 diabetes mellitus without complications (CMS/HCC V24, CMS/HCC V28) documented in this encounter Care Teams Tower Cleaner Relationship Specialty Start Date End Date Tram Álvarez MD 2 [facility] , [address] [facility] Physician Associ D/B/A: [facility] [place], [place] PCP - General Internal Medicine 03/30/18 documented as of this encounter
--- OUTSIDE RECORDS SUMMARY | 2025-03-22 14:40 | XMS_ITS | Encounter Summary ---
Author Organization [facility] Address [address] [place] [address] Care Team Providers Care Photographer Helper Name Role Phone Tram Álvarez MD Primary Care Provider [phone] Encounter Details Date Type Department Care Team (Late st Contact Info) Description 09/30/2024 Lab Requisition [facility] - Main Lab [address] [place] [address] Prince Le MD 38 [facility] [address] [place], [address] Type 2 diabetes mellitus without [...] mg/dL LAB CHEMISTRY METHOD 10/01/2024 11:[address] [facility] Blood Venous blood specimen / Unknown Venipuncture / Unknown 10/01/2024 8:01 AM EDT 10/01/2024 10:24 AM EDT us Prince Le MD LAB BLOOD ORDERABLES Final Resul t [facility] [address] [place] [address], [place] [phone] * (ABNORMAL) Comprehensive metabolic panel (10/01/2024 8:01 AM EDT) Sodium 134 133 - 145 mmol/L LAB CHEMISTRY METHOD 10/01/2024 12:[address] [facility] Potassium 4.7 3.5 - 5.5 mmol/L LAB CHEMISTRY METHOD 10/01/2024 12:[address] [facility] Chloride 101 96 - 110 mmol/L LAB CHEMISTRY METHOD 10/01/2024 12:[address] [facility] CO2 27 21 - 32 mmol/L LAB CHEMISTRY METHOD 10/01/2024 12:[address] [facility] Anion Gap 6 3 - 11 LAB CHEMISTRY METHOD 10/01/2024 12:[address] [facility] Glucose 79 70 - 100 mg/dL LAB CHEMISTRY METHOD 10/01/2024 12:[address] [facility] BUN 40(H) 5 - 25 mg/dL LAB CHEMISTRY METHOD 10/01/2024 12:[address] [facility] Creatinine 1.55(H) 0.70 - 1.30 mg/dL LAB CHEMISTRY METHOD 10/01/2024 12:[address] [facility] eGFR 48(L) >=60 mL/min/1. 73m2 LAB CHEMISTRY METHOD 10/01/2024 12:[address] [facility] Comment:Calculation based on the Chronic Kidney Disease Epidemiology Collaboration (CKD-EPI) equation refit without adjustment for race. BUN/Creatinine Ratio 25.8 LAB CHEMISTRY METHOD 10/01/2024 12:[address] [facility] Calcium 8.8 8.5 - 10.5 mg/dL LAB CHEMISTRY METHOD 10/01/2024 12:[address] [facility] AST (SGOT) 63(H) 10 - 42 unit/L LAB CHEMISTRY METHOD 10/01/2024 12:[address] [facility] ALT (SGPT) 30 10 - 60 unit/L LAB CHEMISTRY METHOD 10/01/2024 12:[address] [facility] Alkaline Phosphatase 40(L) 42 - 121 unit/L LAB CHEMISTRY METHOD 10/01/2024 12:[address] [facility] Total Protein 6.0 6.0 - 8.0 g/dL LAB CHEMISTRY METHOD 10/01/2024 12:[address] [facility] Albumin 2.9(L) 3.2 - 5.0 g/dL LAB CHEMISTRY METHOD 10/01/2024 12:[address] [facility] Total Bilirubin 0.4 0.0 - 1.4 mg/dL LAB CHEMISTRY METHOD 10/01/2024 12:[address] [facility] Blood Venous blood specimen / Unknown Venipuncture / Unknown 10/01/2024 8:01 AM EDT 10/01/2024 10:24 AM EDT us Prince Le MD LAB BLOOD ORDERABLES Final Resul t [facility] [address] [place] [address], * (ABNORMAL) Complete blood count (10/01/2024 8:01 AM EDT) WBC 7.3 4.8 - 10.8 K/mcL LAB HEMETOLOGY METHOD 10/01/2024 11:[address] [facility] RBC 4.00(L) 4.50 - 5.50 M/mcL LAB HEMETOLOGY METHOD 10/01/2024 11:[address] [facility] Hemoglobin 11.8(L) 13.5 - 17.5 g/dL LAB HEMETOLOGY METHOD 10/01/2024 11:[address] [facility] Hematocrit 37.0(L) 42.0 - 54.0 % LAB HEMETOLOGY METHOD 10/01/2024 11:[address] [facility] MCV 93.7 79.0 - 98.0 FL LAB HEMETOLOGY METHOD 10/01/2024 11:[address] [facility] MCH 29.9 27.0 - 32.0 pcg LAB HEMETOLOGY METHOD 10/01/2024 11:[address] [facility] MCHC 31.9(L) 32.0 - 37.0 g/dL LAB HEMETOLOGY METHOD 10/01/2024 11:[address] [facility] RDW 16.4(H) 11.0 - 15.0 % LAB HEMETOLOGY METHOD 10/01/2024 11:[address] [facility] Platelets 416(H) 130 - 400 K/mcL LAB HEMETOLOGY METHOD 10/01/2024 11:[address] [facility] MPV 11.3(H) 7.0 - 11.0 FL LAB HEMETOLOGY METHOD 10/01/2024 11:[address] [facility] NRBC 0.0 <1.0 % LAB HEMETOLOGY METHOD 10/01/2024 11:[address] [facility] NRBC Absolute 0.00 <0.10 K/mcL LAB HEMETOLOGY METHOD 10/01/2024 11:[address] [facility] Blood Venous blood specimen / Unknown Venipuncture / Unknown 10/01/2024 8:01 AM EDT 10/01/2024 10:24 AM EDT us Prince Le MD LAB BLOOD ORDERABLES [facility] [address] [place] [address], documented in this encounter Visit Diagnoses Diagnosis Type 2 diabetes mellitus without complications (CMS/HCC V24, CMS/HCC V28) documented in this encounter Care Teams Photographer Helper Relationship Specialty Start Date End Date Tram Álvarez MD 2 [facility] , [address] Physician Associ D/B/A: [facility] [place], [place] PCP - General Internal Medicine 03/30/18 documented as of this encounter
--- OUTSIDE RECORDS SUMMARY | 2025-03-22 14:40 | XMS_ITS | Encounter Summary ---
Author Organization [facility] Address [address] [place] [address] Care Team Providers Care Regulatory Compliance Manager Name Role Phone Tram Álvarez MD Primary Care Provider [phone] Encounter Details Date Type Department Care Team (Late st Contact Info) Description 09/23/2024 Lab Requisition [facility] - Main Lab [address] [place] [address] Prince Le MD 38 [facility] [address] [place], [address] Type 2 diabetes mellitus without complications [...] t [facility] [address] [place] [address], [place] [phone] * (ABNORMAL) Comprehensive metabolic panel (09/24/2024 5:45 [...] LAB CHEMISTRY METHOD 09/24/2024 12:42 PM T [facility] Calcium 8.9 [...] t [facility] [address] [place] [address], * (ABNORMAL) Complete blood count (09/24/2024 5:45 [...] MD LAB BLOOD ORDERABLES Final [facility]ul t [facility]) [facility] [address] [place] [address], documented in this encounter Visit Diagnoses Diagnosis Type 2 diabetes mellitus without complications (CMS/HCC V24, CMS/HCC V28) documented in this encounter Care Teams Regulatory Compliance Manager Relationship Specialty Start Date End Date Tram Álvarez MD 2 [facility] , [address] Physician Associ D/B/A: [facility] JAS Duque PCP - General Internal Medicine 03/30/18 documented as of this encounter
--- OUTSIDE RECORDS SUMMARY | 2025-03-22 14:40 | XMS_ITS | Encounter Summary ---
Author Organization [facility] Address [address] [place] [address] Care Team Providers Care Solid State Tester Name Role Phone Tram Álvarez MD Primary Care Provider [phone] Encounter Details Date Type Department Care Team (Late st Contact Info) Description 09/16/2024 Lab Requisition [facility] - Main Lab [address] [place] [address] Prince Le MD 38 [facility] [address] [place], [address] Type 2 diabetes mellitus without complications [...] Resul t [facility] [address] [place] [address], [place] [phone] * (ABNORMAL) Comprehensive metabolic panel (09/17/2024 8:06 [...] Resul t [facility] [address] [place] [address], * (ABNORMAL) Complete blood count (09/17/2024 8:06 [...] MD LAB BLOOD ORDERABLES Final Resul t [facility]) [facility] [address] [place] [address], documented in this encounter Visit Diagnoses Diagnosis Type 2 diabetes mellitus without complications (CMS/HCC V24, CMS/HCC V28) documented in this encounter Care Teams Solid State Tester Relationship Specialty Start Date End Date Tram Álvarez MD 2 [facility] , [address] Physician Associ D/B/A: [facility] [place], [place] PCP - General Internal Medicine 03/30/18 documented as of this encounter
--- OUTSIDE RECORDS SUMMARY | 2025-03-22 14:40 | XMS_ITS | Encounter Summary ---
Author Organization [facility] Address [address] [place] [address] Care Team Providers Care Mail Service Coordinator Name Role Phone Tram Álvarez MD Primary Care Provider [phone] Encounter Details Date Type Department Care Team (Late st Contact Info) Description 11/09/2024 Lab Requisition [facility] - Main Lab [address] [facility] [place] [address] Prince Le MD 38 [facility] [address] [place], [address] Hyperlipidemia, unspecified Social History Tobacco Use [...] unspecified documented in this encounter Care Teams Mail Service Coordinator Relationship Specialty Start Date End Date Tram Álvarez MD [address] [place] [address] , [address] [facility] Physician Associ D/B/A: [facility] [place], [place] PCP - General Internal Medicine 03/30/18 documented as of this encounter
--- OUTSIDE RECORDS SUMMARY | 2025-03-22 14:40 | XMS_ITS | Encounter Summary ---
Author Organization [facility] Address [address] [place] [address] Care Team Providers Care Alcoholic Counselor Name Role Phone Tram Álvarez MD Primary Care Provider [phone] Encounter Details Date Type Department Care Team (Late st Contact Info) Description 11/05/2024 Lab Requisition [facility] [place] [facility] - Main Lab [address] [facility] [place] [address] Preeti Lujan MD [address] [phone] Pneumonia, unspecified organism Social History Tobacco Use [...] CHEMISTRY METHOD 11/05/2024 11:23 AM EDT [facility] Potassium 3.8 3.5 - 5.5 mmol/L LAB CHEMISTRY METHOD 11/05/2024 11:23 AM T [facility] Chloride 112(H) 96 - 110 mmol/L LAB CHEMISTRY METHOD 11/05/2024 11:23 AM T [facility] CO2 19(L) 21 - 32 mmol/L LAB CHEMISTRY METHOD 11/05/2024 11:23 AM [facility] Anion Gap 11 3 - 11 LAB CHEMISTRY METHOD 11/05/2024 11:23 AM [facility] Glucose 121(H) 70 - 100 mg/dL LAB CHEMISTRY METHOD 11/05/2024 11:23 AM [facility] BUN 22 5 - 25 mg/dL LAB CHEMISTRY METHOD 11/05/2024 11:23 AM [facility] Creatinine 0.58(L) 0.70 - 1.30 mg/dL LAB CHEMISTRY METHOD 11/05/2024 11:23 AM [facility] eGFR 106 >=60 mL/min/1. 73m2 LAB CHEMISTRY METHOD 11/05/2024 11:23 AM [facility] Comment:Calculation based on the Chronic Kidney Disease Epidemiology Collaboration (CKD-EPI) equation refit without adjustment for race. BUN/Creatinine Ratio 37.9 LAB CHEMISTRY METHOD 11/05/2024 11:23 AM [facility] Calcium 9.3 8.5 - 10.5 mg/dL LAB CHEMISTRY METHOD 11/05/2024 11:23 AM [facility] Blood Venous blood specimen / Unknown Venipuncture / Unknown 11/05/2024 8:07 AM EDT 11/05/2024 9:58 AM EDT us Preeti Lujan MD LAB BLOOD ORDERABLES Fin al Result [facility] [address] [place] [address], documented in this encounter Visit Diagnoses Diagnosis Pneumonia, unspecified organism documented in this encounter Care Teams Alcoholic Counselor Relationship Specialty Start Date End Date Tram Álvarez MD 2 [facility] , [address] Physician Associ D/B/A: [facility] JAS Duque PCP - General Internal Medicine 03/30/18 documented as of this encounter
--- OUTSIDE RECORDS SUMMARY | 2025-03-22 14:40 | XMS_ITS | Encounter Summary ---
Author Organization [facility] Address [address] [place] [address] Care Team Providers Care Slinger Sequins Name Role Phone Tram Álvarez MD Primary Care Provider [phone] Encounter Details Date Type Department Care Team (Late st Contact Info) Description 11/11/2024 Lab Requisition [facility] - Main Lab [address] [place] [address] Preeti Lujan MD [address] [phone] Chronic kidney disease, unspecified Social History Tobacco [...] LAB CHEMISTRY METHOD 11/11/2024 11:32 AM EDT [facility] Potassium 4.2 3.5 - 5.5 mmol/L LAB CHEMISTRY METHOD 11/11/2024 11:32 AM EDT [facility] Chloride 110 96 - 110 mmol/L LAB CHEMISTRY METHOD 11/11/2024 11:32 AM [facility] CO2 22 21 - 32 mmol/L LAB CHEMISTRY METHOD 11/11/2024 11:32 AM [facility] Anion Gap 9 3 - 11 LAB CHEMISTRY METHOD 11/11/2024 11:32 AM [facility] Glucose 177(H) 70 - 100 mg/dL LAB CHEMISTRY METHOD 11/11/2024 11:32 AM [facility] BUN 20 5 - 25 mg/dL LAB CHEMISTRY METHOD 11/11/2024 11:32 AM [facility] Creatinine 0.67(L) 0.70 - 1.30 mg/dL LAB CHEMISTRY METHOD 11/11/2024 11:32 AM [facility] eGFR 101 >=60 mL/min/1. 73m2 LAB CHEMISTRY METHOD 11/11/2024 11:32 AM [facility] Comment:Calculation based on the Chronic Kidney Disease Epidemiology Collaboration (CKD-EPI) equation refit without adjustment for race. BUN/Creatinine Ratio 29.9 LAB CHEMISTRY METHOD 11/11/2024 11:32 AM [facility] Calcium 8.7 8.5 - 10.5 mg/dL LAB CHEMISTRY METHOD 11/11/2024 11:32 AM [facility] Blood Venous blood specimen / Unknown Venipuncture / Unknown 11/11/2024 6:41 AM EDT 11/11/2024 9:11 AM EDT us Preeti Lujan MD LAB BLOOD ORDERABLES Fin al Result [facility] [address] [place] [address], * (ABNORMAL) Complete blood count (11/11/2024 6:41 AM EDT) WBC 8.1 4.8 - 10.8 K/mcL LAB HEMETOLOGY METHOD 11/11/2024 10:28 AM [facility] RBC 3.80(L) 4.50 - 5.50 M/mcL LAB HEMETOLOGY METHOD 11/11/2024 10:28 AM [facility] Hemoglobin 11.5(L) 13.5 - 17.5 g/dL LAB HEMETOLOGY METHOD 11/11/2024 10:28 AM [facility] Hematocrit 35.8(L) 42.0 - 54.0 % LAB HEMETOLOGY METHOD 11/11/2024 10:28 AM [facility] MCV 93.2 79.0 - 98.0 FL LAB HEMETOLOGY METHOD 11/11/2024 10:28 AM [facility] MCH 29.9 27.0 - 32.0 pcg LAB HEMETOLOGY METHOD 11/11/2024 10:28 AM [facility] MCHC 32.1 32.0 - 37.0 g/dL LAB HEMETOLOGY METHOD 11/11/2024 10:28 AM [facility] RDW 16.4(H) 11.0 - 15.0 % LAB HEMETOLOGY METHOD 11/11/2024 10:28 AM [facility] Platelets 314 130 - 400 K/mcL LAB HEMETOLOGY METHOD 11/11/2024 10:28 AM [facility] MPV 12.3(H) 7.0 - 11.0 FL LAB HEMETOLOGY METHOD 11/11/2024 10:28 AM [facility] NRBC 0.0 <1.0 % LAB HEMETOLOGY METHOD 11/11/2024 10:28 AM [facility] NRBC Absolute 0.00 <0.10 K/mcL LAB HEMETOLOGY METHOD 11/11/2024 10:28 AM EDT [facility] Blood Venous blood specimen / Unknown Venipuncture / Unknown 11/11/2024 6:41 AM EDT 11/11/2024 9:11 AM EDT us Preeti Lujan MD LAB BLOOD ORDERABLES Fin al Result [facility] [address] [place] [address], documented in this encounter Visit Diagnoses Diagnosis Chronic kidney disease, unspecified documented in this encounter Care Teams Slinger Sequins Relationship Specialty Start Date End Date Tram Álvarez MD 2 [facility] , [address] Physician Associ D/B/A: [facility] [place], [place] PCP - General Internal Medicine 03/30/18 documented as of this encounter
== END ==
LOC: HO.CARD 10:54
PROVIDERS: PCP Internal Medicine; Visit Provider Internal Medicine Cardiovascular Disease
DX: Z01.810 Encounter for preprocedural cardiovascular examination (principal); I42.9 Cardiomyopathy, unspecified
CPT/HCPCS: 93308

== ENCOUNTER → 2025-03-22 11:00 | Outpatient (BNV) | payer OTHER, SELFPAY | PROVIDERS: PCP Internal Medicine; Visit Provider Internal Medicine | DX: I42.9 Cardiomyopathy, unspecified (principal) | CPT/HCPCS: 93308 ==

== ENCOUNTER → 2025-03-24 08:36 | Outpatient (REF) | payer OTHER, SELFPAY ==
--- NOTE | ~2025-03-24 | NM_ITS ---
Lexiscan Myocardial perfusion study Indication: Preoperative cardiovascular stratification Technique: The patient was brought in for a Lexiscan perfusion study on 03/24/2025 and was injected 0.4 mg of Lexiscan intravenously. Within a minute of this injection 30 mCi of sestamibi was given intravenously. Images were obtained using the SPECT gamma camera interlaced with the gating device. Images were obtained in supine position. Resting perfusion study was performed on 03/29/2025. Patient was administered 30 mCi of sestamibi intravenously at rest. Images were then obtained in supine position. Images obtained without without CT attenuation. Total DLP 144 mGy-cm. Images were processed with the software and compared side to side in short axis, horizontal long axis and vertical long axis views. Findings: Both stress and rest perfusion study are suboptimal due to imaging down with arms down position as well as due to intense subdiaphragmatic uptake in the liver interfering with inferior wall uptake The stress perfusion study showed nonattenuated images show mildly to moderately reduced uptake in the lateral and inferolateral wall of the LV myocardium reduced uptake in the basal inferior wall of the LV myocardium. Attenuated corrected images show mildly reduced uptake in the basal lateral wall of the LV myocardium.. The gated study shows normal LV systolic function with calculated LVEF of 72%. LV cavity is normal in size. The gated study shows normal systolic wall thickening and contraction of segments. Resting study shows both attenuated as well as nonattenuated corrected normal segments of the LV myocardium. Gating at rest reveals systolic wall motion with ejection fraction at 58%. The findings are consistent with equivocal for mild intensity basal and mid lateral wall ischemia possibly due to shifting attenuation artifact. NM/NM celia perf SPECT rest & str Impression: 1. Myocardial perfusion imaging study shows equivocal for mild intensity basal and mid ischemia 2. Gated LVEF is 72% 3. Transient ischemic dilatation not present Nondiagnostic changes on EKG. Electronically signed by: Giuliano Grant MD 03/29/2025 04:14 PM EDT
--- NOTE | 2025-03-24 08:41 | CA_ITS ---
Acquisition Time: 2025-03-24 09:15:30 Total Exercise Time: 00:02:00 Test Indications: Abnormal ECG,Pre-Op Evaluation Medications: SEE EMAR Protocol: LEXISCAN Max HR: 94 BPM 62% of Pred: 151 BPM Max BP: 132/74 mmHG Max Work Load: 1.0 METS Pharmacological stress test with Lexiscan while pt moves his arms, with reports of lower back pain, with isolated PVCs, with normotensive response to injection. Nondiagnostic EKG for ischemia. In recovery, pt treated with IVP Aminophylline 75 mg to reverse Lexiscan after which pt feeling back to baselie. Nuclear images pending. Test reviewed with Dr. Neri. Referred By: Giuliano Grant Electronically Signed By: Siddhartha Saucedo
--- OUTSIDE RECORDS SUMMARY | 2025-03-24 09:49 | XMS_ITS | Encounter Summary ---
Author Organization [facility] Address [address] [place] [address] Care Team Providers Care Rail Tractor Operator Name Role Phone Tram Álvarez MD Primary Care Provider [phone] Encounter Details Date Type Department Care Team (Late st Contact Info) Description 06/18/2024 Lab Requisition [facility] - Main Lab [address] [place] [address] Prince Le MD [address] [place], [address] Nausea with vomiting, unspecified; Chronic kidney [...] LAB CHEMISTRY METHOD 06/18/2024 11:17 AM EST [facility] LAB Potassium 4.6 3.5 - 5.5 mmol/L LAB CHEMISTRY METHOD 06/18/2024 11:17 AM [facility] LAB Chloride 102 96 - 110 mmol/L LAB CHEMISTRY METHOD 06/18/2024 11:17 AM [facility] LAB CO2 32 21 - 32 mmol/L LAB CHEMISTRY METHOD 06/18/2024 11:17 AM [facility] LAB Anion Gap 8 3 - 11 LAB CHEMISTRY METHOD 06/18/2024 11:17 AM [facility] LAB Glucose 72 70 - 100 mg/dL LAB CHEMISTRY METHOD 06/18/2024 11:17 AM [facility] LAB BUN 35(H) 5 - 25 mg/dL LAB CHEMISTRY METHOD 06/18/2024 11:17 AM [facility] LAB Creatinine 1.44(H) 0.70 - 1.30 mg/dL LAB CHEMISTRY METHOD 06/18/2024 11:17 AM [facility] LAB eGFR 53(L) >=60 mL/min/1. 73m2 LAB CHEMISTRY METHOD 06/18/2024 11:17 AM [facility] LAB Comment:Calculation based on the Chronic Kidney Disease Epidemiology Collaboration (CKD-EPI) equation refit without adjustment for race. BUN/Creatinine Ratio 24.3 LAB CHEMISTRY METHOD 06/18/2024 11:17 AM [facility] LAB Calcium 9.3 8.5 - 10.5 mg/dL LAB CHEMISTRY METHOD 06/18/2024 11:17 AM [facility] LAB Blood Venous blood specimen / Unknown Venipuncture / Unknown 06/18/2024 6:44 AM EST 06/18/2024 9:17 AM EST us Prince Le MD LAB BLOOD ORDERABLES Final Resul t [facility] LAB [address] [place] [address], [place] [phone] * (ABNORMAL) Complete blood count (06/18/2024 6:44 AM EST) WBC 8.4 4.8 - 10.8 K/[facility] LAB HEMETOLOGY METHOD 06/18/2024 10:46 AM [facility] LAB RBC 5.10 4.50 - 5.50 M/[facility] LAB HEMETOLOGY METHOD 06/18/2024 10:46 AM [facility] LAB Hemoglobin 14.2 13.5 - 17.5 g/dL LAB HEMETOLOGY METHOD 06/18/2024 10:46 AM [facility] LAB Hematocrit 43.5 42.0 - 54.0 % LAB HEMETOLOGY METHOD 06/18/2024 10:46 AM [facility] LAB MCV 86.1 79.0 - 98.0 FL LAB HEMETOLOGY METHOD 06/18/2024 10:46 AM [facility] LAB MCH 28.1 27.0 - 32.0 pcg LAB HEMETOLOGY METHOD 06/18/2024 10:46 AM [facility] LAB MCHC 32.6 32.0 - 37.0 g/dL LAB HEMETOLOGY METHOD 06/18/2024 10:46 AM [facility] LAB RDW 17.2(H) 11.0 - 15.0 % LAB HEMETOLOGY METHOD 06/18/2024 10:46 AM [facility] LAB Platelets 248 130 - 400 K/[facility] LAB HEMETOLOGY METHOD 06/18/2024 10:46 AM [facility] LAB MPV 12.7(H) 7.0 - 11.0 FL LAB HEMETOLOGY METHOD 06/18/2024 10:46 AM [facility] LAB NRBC 0.0 <1.0 % LAB HEMETOLOGY METHOD 06/18/2024 10:46 AM [facility] LAB NRBC Absolute 0.00 <0.10 K/[facility] LAB HEMETOLOGY METHOD 06/18/2024 10:46 AM [facility] LAB Blood Venous blood specimen / Unknown Venipuncture / Unknown 06/18/2024 6:44 AM EST 06/18/2024 9:17 AM EST us Prince Le MD LAB BLOOD ORDERABLES Final Resul t [facility] ([facility]) [facility] LAB [address] [place] [address], documented in this encounter Visit Diagnoses Diagnosis Nausea with vomiting, unspecified Chronic kidney disease, unspecified documented in this encounter Care Teams Rail Tractor Operator Relationship Specialty Start Date End Date Tram Álvarez MD 2 [facility] , [address] Physician Associ D/B/A: [facility] JAS Duque PCP - General Internal Medicine 03/30/18 documented as of this encounter
--- OUTSIDE RECORDS SUMMARY | 2025-03-24 09:49 | XMS_ITS | Encounter Summary ---
Author Organization [facility] Address [address] [place] [address] Care Team Providers Care Mixer And Blender Name Role Phone Tram Álavrez MD Primary Care Provider [phone] Encounter Details Date Type Department Care Team (Late st Contact Info) Description 07/16/2024 Lab Requisition [facility] - Main Lab [address] [place] [address] Prince Le MD 38 [facility] [address] [place], [address] Type 2 diabetes mellitus without complications [...] mg/dL LAB CHEMISTRY METHOD 07/16/2024 12:50 PM [facility] LAB Blood Venous blood specimen / Unknown Venipuncture / Unknown 07/16/2024 8:00 AM EST 07/16/2024 11:21 AM EST us Prince Le MD LAB BLOOD ORDERABLES Final Resul t [facility] LAB [address] [place] [address], [place] [phone] * (ABNORMAL) Comprehensive metabolic panel (07/16/2024 8:00 AM EST) Sodium 137 133 - 145 mmol/L LAB CHEMISTRY METHOD 07/16/2024 1:13 PM [facility] LAB Potassium 5.1 3.5 - 5.5 mmol/L LAB CHEMISTRY METHOD 07/16/2024 1:13 PM [facility] LAB Chloride 103 96 - 110 mmol/L LAB CHEMISTRY METHOD 07/16/2024 1:13 PM [facility] LAB CO2 27 21 - 32 mmol/L LAB CHEMISTRY METHOD 07/16/2024 1:13 PM [facility] LAB Anion Gap 7 3 - 11 LAB CHEMISTRY METHOD 07/16/2024 1:13 PM [facility] LAB Glucose 40(L) 70 - 100 mg/dL LAB CHEMISTRY METHOD 07/16/2024 1:13 PM [facility] LAB BUN 35(H) 5 - 25 mg/dL LAB CHEMISTRY METHOD 07/16/2024 1:13 PM [facility] LAB Creatinine 1.27 0.70 - 1.30 mg/dL LAB CHEMISTRY METHOD 07/16/2024 1:13 PM [facility] LAB eGFR 62 >=60 mL/min/1. 73m2 LAB CHEMISTRY METHOD 07/16/2024 1:13 PM [facility] LAB Comment:Calculation based on the Chronic Kidney Disease Epidemiology Collaboration (CKD-EPI) equation refit without adjustment for race. BUN/Creatinine Ratio 27.6 LAB CHEMISTRY METHOD 07/16/2024 1:13 PM [facility] LAB Calcium 9.0 8.5 - 10.5 mg/dL LAB CHEMISTRY METHOD 07/16/2024 1:13 PM [facility] LAB AST (SGOT) 18 10 - 42 unit/L LAB CHEMISTRY METHOD 07/16/2024 1:13 PM [facility] LAB ALT (SGPT) 19 10 - 60 unit/L LAB CHEMISTRY METHOD 07/16/2024 1:13 PM [facility] LAB Alkaline Phosphatase 62 42 - 121 unit/L LAB CHEMISTRY METHOD 07/16/2024 1:13 PM [facility] LAB Total Protein 6.7 6.0 - 8.0 g/dL LAB CHEMISTRY METHOD 07/16/2024 1:13 PM [facility] LAB Albumin 3.5 3.2 - 5.0 g/dL LAB CHEMISTRY METHOD 07/16/2024 1:13 PM [facility] LAB Total Bilirubin 0.4 0.0 - 1.4 mg/dL LAB CHEMISTRY METHOD 07/16/2024 1:13 PM [facility] LAB Blood Venous blood specimen / Unknown Venipuncture / Unknown 07/16/2024 8:00 AM EST 07/16/2024 11:21 AM EST us Prince Le MD LAB BLOOD ORDERABLES Final Resul t [facility] LAB [address] [place] [address], * (ABNORMAL) Complete blood count (07/16/2024 8:00 AM EST) WBC 10.9(H) 4.8 - 10.8 K/mcL LAB HEMETOLOGY METHOD 07/16/2024 11:[address] [facility] LAB RBC 4.90 4.50 - 5.50 M/mcL LAB HEMETOLOGY METHOD 07/16/2024 11:53 AM [facility] LAB Hemoglobin 13.4(L) 13.5 - 17.5 g/dL LAB HEMETOLOGY METHOD 07/16/2024 11:53 AM [facility] LAB Hematocrit 41.6(L) 42.0 - 54.0 % LAB HEMETOLOGY METHOD 07/16/2024 11:53 AM [facility] LAB MCV 85.1 79.0 - 98.0 FL LAB HEMETOLOGY METHOD 07/16/2024 11:53 AM [facility] LAB MCH 27.4 27.0 - 32.0 pcg LAB HEMETOLOGY METHOD 07/16/2024 11:53 AM [facility] LAB MCHC 32.2 32.0 - 37.0 g/dL LAB HEMETOLOGY METHOD 07/16/2024 11:53 AM [facility] LAB RDW 18.3(H) 11.0 - 15.0 % LAB HEMETOLOGY METHOD 07/16/2024 11:53 AM [facility] LAB Platelets 413(H) 130 - 400 K/mcL LAB HEMETOLOGY METHOD 07/16/2024 11:53 AM [facility] LAB MPV 12.4(H) 7.0 - 11.0 FL LAB HEMETOLOGY METHOD 07/16/2024 11:53 AM [facility] LAB NRBC 0.0 <1.0 % LAB HEMETOLOGY METHOD 07/16/2024 11:53 AM [facility] LAB NRBC Absolute 0.00 <0.10 K/mcL LAB HEMETOLOGY METHOD 07/16/2024 11:53 AM [facility] LAB Blood Venous blood specimen / Unknown Venipuncture / Unknown 07/16/2024 8:00 AM EST 07/16/2024 11:21 AM EST us Prince Le MD LAB BLOOD ORDERABLES Final Resul t [facility] ([facility]) [facility] [address] [place] [address], documented in this encounter Visit Diagnoses Diagnosis Type 2 diabetes mellitus without complications (CMS/HCC V24, CMS/HCC V28) documented in this encounter Care Teams Mixer And Blender Relationship Specialty Start Date End Date Tram Álvarez MD 2 [facility] , [address] [facility] Physician Associ D/B/A: [facility] JAS Duque PCP - General Internal Medicine 03/30/18 documented as of this encounter
--- OUTSIDE RECORDS SUMMARY | 2025-03-24 09:49 | XMS_ITS | Encounter Summary ---
Author Organization [facility] Address [address] [place] [address] Care Team Providers Care Mechanical Handyman Name Role Phone Tram Álvarez MD Primary Care Provider [phone] Encounter Details Date Type Department Care Team (Late st Contact Info) Description 03/01/2025 Lab Requisition [facility] - Main Lab 299 [facility] [place] [address] Preeti Lujan MD [address] [id number] Essential (primary) hypertension Social History Tobacco Use [...] LAB CHEMISTRY METHOD 03/01/2025 11:14 AM EDT [facility] LAB Potassium 4.6 3.5 - 5.5 mmol/L LAB CHEMISTRY METHOD 03/01/2025 11:14 AM [facility] LAB Chloride 112(H) 96 - 110 mmol/L LAB CHEMISTRY METHOD 03/01/2025 11:14 AM [facility] LAB CO2 25 21 - 32 mmol/L LAB CHEMISTRY METHOD 03/01/2025 11:14 AM [facility] LAB Anion Gap 4 3 - 11 LAB CHEMISTRY METHOD 03/01/2025 11:14 AM [facility] LAB Glucose 135(H) 70 - 100 mg/dL LAB CHEMISTRY METHOD 03/01/2025 11:14 AM [facility] LAB BUN 25 5 - 25 mg/dL LAB CHEMISTRY METHOD 03/01/2025 11:14 AM [facility] LAB Creatinine 0.76 0.70 - 1.30 mg/dL LAB CHEMISTRY METHOD 03/01/2025 11:14 AM [facility] LAB eGFR 97 >=60 mL/min/1. 73m2 LAB CHEMISTRY METHOD 03/01/2025 11:14 AM [facility] LAB Comment:Calculation based on the Chronic Kidney Disease Epidemiology Collaboration (CKD-EPI) equation refit without adjustment for race. BUN/Creatinine Ratio 32.9 LAB CHEMISTRY METHOD 03/01/2025 11:14 AM [facility] LAB Calcium 8.5 8.5 - 10.5 mg/dL LAB CHEMISTRY METHOD 03/01/2025 11:14 AM [facility] LAB Blood Venous blood specimen / Unknown Venipuncture / Unknown 03/01/2025 6:05 AM EDT 03/01/2025 8:40 AM EDT us Preeti Lujan MD LAB BLOOD ORDERABLES Fin al Result [facility] LAB [address] [place] [address], documented in this encounter Visit Diagnoses Diagnosis Essential (primary) hypertension Unspecified essential hypertension documented in this encounter Care Teams Mechanical Handyman Relationship Specialty Start Date End Date Tram Álvarez MD 2 [facility] , [address] Physician Associ D/B/A: [facility] JAS Duque PCP - General Internal Medicine 03/30/18 documented as of this encounter
--- OUTSIDE RECORDS SUMMARY | 2025-03-24 09:49 | XMS_ITS | Encounter Summary ---
Author Organization [facility] Address [address] [place] [address] Care Team Providers Care Cooler Supervisor Name Role Phone Tram Álvarez MD Primary Care Provider [phone] Encounter Details Date Type Department Care Team (Late st Contact Info) Description 09/09/2024 Lab Requisition [facility] - Main Lab 299 [facility] [place] [address] Prince Le MD 38 [facility] [address] [place], [address] Type 2 diabetes mellitus without complications [...] V28) documented in this encounter Care Teams Cooler Supervisor Relationship Specialty Start Date End Date Tram Álvarez MD [address] [place] [address] , [address] [facility] Physician Associ D/B/A: [facility] [place], [place] PCP - General Internal Medicine 03/30/18 documented as of this encounter
--- OUTSIDE RECORDS SUMMARY | 2025-03-24 09:49 | XMS_ITS | Encounter Summary ---
Author Organization [facility] Address [address] [place] [address] Care Team Providers Care Shellac Polisher Name Role Phone Tram Álvarez MD Primary Care Provider [phone] Encounter Details Date Type Department Care Team (Late st Contact Info) Description 05/14/2024 Lab Requisition [facility] - Main Lab [address] [place] [address] Prince Le MD 38 [facility] [address] [place], [address] Essential (primary) hypertension Social History Tobacco [...] LAB CHEMISTRY METHOD 05/17/2024 10:43 AM EST [facility] LAB Potassium 4.5 3.5 - 5.5 mmol/L LAB CHEMISTRY METHOD 05/17/2024 10:43 AM EST [facility] LAB Chloride 110 96 - 110 mmol/L LAB CHEMISTRY METHOD 05/17/2024 10:43 AM [facility] LAB CO2 27 21 - 32 mmol/L LAB CHEMISTRY METHOD 05/17/2024 10:43 AM [facility] LAB Anion Gap 6 3 - 11 LAB CHEMISTRY METHOD 05/17/2024 10:43 AM [facility] LAB Glucose 99 70 - 100 mg/dL LAB CHEMISTRY METHOD 05/17/2024 10:43 AM [facility] LAB BUN 37(H) 5 - 25 mg/dL LAB CHEMISTRY METHOD 05/17/2024 10:43 AM [facility] LAB Creatinine 1.29 0.70 - 1.30 mg/dL LAB CHEMISTRY METHOD 05/17/2024 10:43 AM [facility] LAB eGFR 60 >=60 mL/min/1. 73m2 LAB CHEMISTRY METHOD 05/17/2024 10:43 AM [facility] LAB Comment:Calculation based on the Chronic Kidney Disease Epidemiology Collaboration (CKD-EPI) equation refit without adjustment for race. BUN/Creatinine Ratio 28.7 LAB CHEMISTRY METHOD 05/17/2024 10:43 AM [facility] LAB Calcium 9.3 8.5 - 10.5 mg/dL LAB CHEMISTRY METHOD 05/17/2024 10:43 AM [facility] LAB Blood Venous blood specimen / Unknown Venipuncture / Unknown 05/17/2024 6:41 AM EST 05/17/2024 9:49 AM EST us Prince Le MD LAB BLOOD ORDERABLES Final Resul t [facility] LAB [address] [place] [address], * (ABNORMAL) Complete blood count (05/17/2024 6:41 AM EST) WBC 9.0 4.8 - 10.8 K/mcL LAB HEMETOLOGY METHOD 05/17/2024 10:23 AM [facility] LAB RBC 5.50 4.50 - 5.50 M/mcL LAB HEMETOLOGY METHOD 05/17/2024 10:23 AM [facility] LAB Hemoglobin 15.0 13.5 - 17.5 g/dL LAB HEMETOLOGY METHOD 05/17/2024 10:23 AM [facility] LAB Hematocrit 48.3 42.0 - 54.0 % LAB HEMETOLOGY METHOD 05/17/2024 10:23 AM [facility] LAB MCV 88.0 79.0 - 98.0 FL LAB HEMETOLOGY METHOD 05/17/2024 10:23 AM [facility] LAB MCH 27.3 27.0 - 32.0 pcg LAB HEMETOLOGY METHOD 05/17/2024 10:23 AM [facility] LAB MCHC 31.1(L) 32.0 - 37.0 g/dL LAB HEMETOLOGY METHOD 05/17/2024 10:23 AM [facility] LAB RDW 16.6(H) 11.0 - 15.0 % LAB HEMETOLOGY METHOD 05/17/2024 10:23 AM [facility] LAB Platelets 240 130 - 400 K/mcL LAB HEMETOLOGY METHOD 05/17/2024 10:23 AM [facility] LAB MPV 13.4(H) 7.0 - 11.0 FL LAB HEMETOLOGY METHOD 05/17/2024 10:23 AM [facility] LAB NRBC 0.0 <1.0 % LAB HEMETOLOGY METHOD 05/17/2024 10:23 AM [facility] LAB NRBC Absolute 0.00 <0.10 K/mcL LAB HEMETOLOGY METHOD 05/17/2024 10:23 AM [facility] LAB Blood Venous blood specimen / Unknown Venipuncture / Unknown 05/17/2024 6:41 AM EST 05/17/2024 9:51 AM EST us Prince Le MD LAB BLOOD ORDERABLES Final Resul t [facility] [address] [place] [address], [place] [phone] documented in this encounter Visit Diagnoses Diagnosis Essential (primary) hypertension Unspecified essential hypertension documented in this encounter Care Teams Shellac Polisher Relationship Specialty Start Date End Date rTam Álvarez MD 2 [facility] , [address] [facility] Physician Associ D/B/A: [facility] [place], [place] PCP - General Internal Medicine 03/30/18 documented as of this encounter
--- OUTSIDE RECORDS SUMMARY | 2025-03-24 09:49 | XMS_ITS | Encounter Summary ---
Author Organization [facility] Address [address] [place] [address] Care Team Providers Care Asset Accountant Name Role Phone Tram Álvarez MD Primary Care Provider Encounter Details Date Type Department Care Team (Late st Contact Info) Description 08/26/2024 Lab Requisition [facility] - Main Lab 299 [facility] [place] [address] Prince Le MD 38 [facility] [address] [place], [address] Type 2 diabetes mellitus without complications [...] 08/27/2024 9:27 AM [facility] LAB Triglycerides 249(H) 0 - 150 mg/dL LAB CHEMISTRY METHOD 08/27/2024 9:27 AM [facility] LAB HDL 30(L) >=40 mg/dL LAB CHEMISTRY METHOD 08/27/2024 9:27 AM [facility] LAB LDL Calculated 16 0 - 100 mg/dL LAB CHEMISTRY METHOD 08/27/2024 9:27 AM [facility] LAB VLDL Cholesterol Maikel 49.8 mg/dL LAB CHEMISTRY METHOD 08/27/2024 9:27 AM [facility] LAB Non HDL Chol. (LDL+VLDL) 66 [...] Resul t [facility] [address] [place] [address], * (ABNORMAL) C-reactive protein (08/27/2024 6:34 AM EST) C-Reactive Protein 1.47(H) <=0.50 mg/dL LAB CHEMISTRY METHOD 08/27/2024 9:27 AM [facility] LAB Blood Venous blood specimen / Unknown Venipuncture / Unknown 08/27/2024 6:34 AM EST 08/27/2024 8:52 AM EST us Prince Le MD LAB BLOOD ORDERABLES Final Resul t [facility] [address] [place] [address], [place] [phone] * (ABNORMAL) Comprehensive metabolic panel (08/27/2024 6:34 AM EST) Sodium 139 133 - 145 mmol/L LAB CHEMISTRY METHOD 08/27/2024 9:27 AM [facility] LAB Potassium 4.6 3.5 - 5.5 mmol/L LAB CHEMISTRY METHOD 08/27/2024 9:27 AM [facility] LAB Chloride 105 96 - 110 mmol/L LAB CHEMISTRY METHOD 08/27/2024 9:27 AM [facility] LAB CO2 31 21 - 32 mmol/L LAB CHEMISTRY METHOD 08/27/2024 9:27 AM [facility] LAB Anion Gap 3 3 - 11 LAB CHEMISTRY METHOD 08/27/2024 9:27 AM [facility] LAB Glucose 112(H) 70 - 100 mg/dL LAB CHEMISTRY METHOD 08/27/2024 9:27 AM [facility] BUN 19 5 - 25 mg/dL LAB CHEMISTRY METHOD 08/27/2024 9:27 AM [facility] LAB Creatinine 0.71 0.70 - 1.30 mg/dL LAB CHEMISTRY METHOD 08/27/2024 9:27 AM [facility] LAB eGFR 100 >=60 mL/min/1. 73m2 LAB CHEMISTRY METHOD 08/27/2024 9:27 AM [facility] LAB Comment:Calculation based on the Chronic Kidney Disease Epidemiology Collaboration (CKD-EPI) equation refit without adjustment for race. BUN/Creatinine Ratio 26.8 LAB CHEMISTRY METHOD 08/27/2024 9:27 AM [facility] LAB Calcium 9.5 8.5 - 10.5 mg/dL LAB CHEMISTRY METHOD 08/27/2024 9:27 AM [facility] LAB AST (SGOT) 19 10 - 42 unit/L LAB CHEMISTRY METHOD 08/27/2024 9:27 AM [facility] ALT (SGPT) 29 10 - 60 unit/L LAB CHEMISTRY METHOD 08/27/2024 9:27 AM [facility] LAB Alkaline Phosphatase 53 42 - 121 unit/L LAB CHEMISTRY METHOD 08/27/2024 9:27 AM [facility] LAB Total Protein 6.5 6.0 - 8.0 g/dL LAB CHEMISTRY METHOD 08/27/2024 9:27 AM [facility] Albumin 3.2 3.2 - 5.0 g/dL LAB CHEMISTRY METHOD 08/27/2024 9:27 AM [facility] LAB Total Bilirubin 0.6 0.0 - 1.4 mg/dL LAB CHEMISTRY METHOD 08/27/2024 9:27 AM [facility] LAB Blood Venous blood specimen / Unknown Venipuncture / Unknown 08/27/2024 6:34 AM EST 08/27/2024 8:52 AM EST us Prince Le MD LAB BLOOD ORDERABLES Final Resul t [facility] [address] [place] [address], * (ABNORMAL) Complete blood count (08/27/2024 6:34 AM EST) WBC 12.7(H) 4.8 - 10.8 K/mcL LAB HEMETOLOGY METHOD 08/27/2024 9:04 AM [facility] LAB RBC 3.80(L) 4.50 - 5.50 M/mcL LAB HEMETOLOGY METHOD 08/27/2024 9:04 AM [facility] LAB Hemoglobin 10.9(L) 13.5 - 17.5 g/dL LAB HEMETOLOGY METHOD 08/27/2024 9:04 AM [facility] LAB Hematocrit 34.6(L) 42.0 - 54.0 % LAB HEMETOLOGY METHOD 08/27/2024 9:04 AM [facility] LAB MCV 91.5 79.0 - 98.0 FL LAB HEMETOLOGY METHOD 08/27/2024 9:04 AM [facility] LAB MCH 28.8 27.0 - 32.0 pcg LAB HEMETOLOGY METHOD 08/27/2024 9:04 AM [facility] LAB MCHC 31.5(L) 32.0 - 37.0 g/dL LAB HEMETOLOGY METHOD 08/27/2024 9:04 AM [facility] LAB RDW 20.3(H) 11.0 - 15.0 % LAB HEMETOLOGY METHOD 08/27/2024 9:04 AM [facility] LAB Platelets 422(H) 130 - 400 K/mcL LAB HEMETOLOGY METHOD 08/27/2024 9:04 AM [facility] LAB MPV 12.5(H) 7.0 - 11.0 FL LAB HEMETOLOGY METHOD 08/27/2024 9:04 AM [facility] LAB NRBC 0.0 <1.0 % LAB HEMETOLOGY METHOD 08/27/2024 9:04 AM [facility] LAB NRBC Absolute 0.00 <0.10 K/mcL LAB HEMETOLOGY METHOD 08/27/2024 9:04 AM [facility] LAB Blood Venous blood specimen / Unknown Venipuncture / Unknown 08/27/2024 6:34 AM EST 08/27/2024 8:52 AM EST us Prince Le MD LAB BLOOD ORDERABLES Final Resul t [facility] [address] [place] [address], documented in this encounter Visit Diagnoses Diagnosis Type 2 diabetes mellitus without complications (CMS/HCC V24, CMS/HCC V28) documented in this encounter Care Teams Asset Accountant Relationship Specialty Start Date End Date Tram Álvarez MD 2 [facility] , [address] [facility] Physician Associ D/B/A: [facility] [place], [place] PCP - General Internal Medicine 03/30/18 documented as of this encounter
--- OUTSIDE RECORDS SUMMARY | 2025-03-24 09:49 | XMS_ITS | Encounter Summary ---
Author Organization [facility] Address [address] [place] [address] Care Team Providers Care Instrument Room Technician Name Role Phone Tram Álvarez MD Primary Care Provider [phone] Encounter Details Date Type Department Care Team (Late st Contact Info) Description 08/05/2024 Lab Requisition [facility] - Main Lab [address] [place] [address] Prince Le MD 38 [facility] 204 [place], [address] Type 2 diabetes mellitus without complications [...] mg/dL LAB CHEMISTRY METHOD 08/06/2024 9:31 AM [facility] Blood Venous blood specimen / Unknown Venipuncture / Unknown 08/06/2024 6:49 AM EST 08/06/2024 8:31 AM EST us Prince Le MD LAB BLOOD ORDERABLES Final Resul t [facility] [address] [place] [address], * Comprehensive metabolic panel (08/06/2024 6:49 AM EST) Sodium 140 133 - 145 mmol/L LAB CHEMISTRY METHOD 08/06/2024 9:31 AM [facility] Potassium 5.0 3.5 - 5.5 mmol/L LAB CHEMISTRY METHOD 08/06/2024 9:31 AM [facility] Chloride 106 96 - 110 mmol/L LAB CHEMISTRY METHOD 08/06/2024 9:31 AM [facility] CO2 30 21 - 32 mmol/L LAB CHEMISTRY METHOD 08/06/2024 9:31 AM [facility] Anion Gap 4 3 - 11 LAB CHEMISTRY METHOD 08/06/2024 9:31 AM [facility] Glucose 99 70 - 100 mg/dL LAB CHEMISTRY METHOD 08/06/2024 9:31 AM [facility] BUN 25 5 - 25 mg/dL LAB CHEMISTRY METHOD 08/06/2024 9:31 AM [facility] Creatinine 1.10 0.70 - 1.30 mg/dL LAB CHEMISTRY METHOD 08/06/2024 9:31 AM [facility] eGFR 73 >=60 mL/min/1. 73m2 LAB CHEMISTRY METHOD 08/06/2024 9:31 AM [facility] Comment:Calculation based on the Chronic Kidney Disease Epidemiology Collaboration (CKD-EPI) equation refit without adjustment for race. BUN/Creatinine Ratio 22.7 LAB CHEMISTRY METHOD 08/06/2024 9:31 AM [facility] Calcium 9.5 8.5 - 10.5 mg/dL LAB CHEMISTRY METHOD 08/06/2024 9:31 AM [facility] AST (SGOT) 33 10 - 42 unit/L LAB CHEMISTRY METHOD 08/06/2024 9:31 AM [facility] ALT (SGPT) 26 10 - 60 unit/L LAB CHEMISTRY METHOD 08/06/2024 9:31 AM [facility] Alkaline Phosphatase 51 42 - 121 unit/L LAB CHEMISTRY METHOD 08/06/2024 9:31 AM [facility] Total Protein 6.6 6.0 - 8.0 g/dL LAB CHEMISTRY METHOD 08/06/2024 9:31 AM [facility] Albumin 3.4 3.2 - 5.0 g/dL LAB CHEMISTRY METHOD 08/06/2024 9:31 AM [facility] Total Bilirubin 0.4 0.0 - 1.4 mg/dL LAB CHEMISTRY METHOD 08/06/2024 9:31 AM [facility] Blood Venous blood specimen / Unknown Venipuncture / Unknown 08/06/2024 6:49 AM EST 08/06/2024 8:31 AM EST us Prince Le MD LAB BLOOD ORDERABLES Final Resul t [facility] [address] [place] [address], * (ABNORMAL) Complete blood count (08/06/2024 6:49 AM EST) WBC 8.2 4.8 - 10.8 K/mcL LAB HEMETOLOGY METHOD 08/06/2024 9:12 AM EST [facility] RBC 4.50 4.50 - 5.50 M/mcL LAB HEMETOLOGY METHOD 08/06/2024 9:12 AM [facility] Hemoglobin 12.2(L) 13.5 - 17.5 g/dL LAB HEMETOLOGY METHOD 08/06/2024 9:12 AM [facility] Hematocrit 37.4(L) 42.0 - 54.0 % LAB HEMETOLOGY METHOD 08/06/2024 9:12 AM [facility] MCV 84.0 79.0 - 98.0 FL LAB HEMETOLOGY METHOD 08/06/2024 9:12 AM [facility] MCH 27.4 27.0 - 32.0 pcg LAB HEMETOLOGY METHOD 08/06/2024 9:12 AM [facility] MCHC 32.6 32.0 - 37.0 g/dL LAB HEMETOLOGY METHOD 08/06/2024 9:12 AM [facility] RDW 20.3(H) 11.0 - 15.0 % LAB HEMETOLOGY METHOD 08/06/2024 9:12 AM [facility] Platelets 351 130 - 400 K/mcL LAB HEMETOLOGY METHOD 08/06/2024 9:12 AM [facility] MPV 12.2(H) 7.0 - 11.0 FL LAB HEMETOLOGY METHOD 08/06/2024 9:12 AM [facility] NRBC 0.0 <1.0 % LAB HEMETOLOGY METHOD 08/06/2024 9:12 AM [facility] NRBC Absolute 0.00 <0.10 K/mcL LAB HEMETOLOGY METHOD 08/06/2024 9:12 AM [facility] Blood Venous blood specimen / Unknown Venipuncture / Unknown 08/06/2024 6:49 AM EST 08/06/2024 8:31 AM EST us Prince Le MD LAB BLOOD ORDERABLES Final Resul t [facility] [address] [place] [address], documented in this encounter Visit Diagnoses Diagnosis Type 2 diabetes mellitus without complications (CMS/HCC V24, CMS/HCC V28) documented in this encounter Care Teams Instrument Room Technician Relationship Specialty Start Date End Date Tram Álvarez MD 2 [facility] , [address] [facility] Physician Associ D/B/A: [facility] [place] PCP - General Internal Medicine 03/30/18 documented as of this encounter
--- OUTSIDE RECORDS SUMMARY | 2025-03-24 09:49 | XMS_ITS | Clinical Summary ---
Author Organization [facility] Address [address] [place] [address] Care Team Providers Care Catalyst Plant Supervisor Name Role Phone Sade Dykes PA-C Primary Care Provider [phone] Source Comments PLEASE NOTE, if this patient [...] 60 Tab 0 12/01/19 14 Active Acidophilus-Pectin, Avery 25 million-100 cell-mg tabIndications:Dive rticulosis Take 1 tablet by mouth 2 (two) times daily. As directed by electronic assembler 100 tablet 3 01/31/20 14 Active [...] Plan of Treatment Not on file Insurance [facility] Care Teams Catalyst Plant Supervisor Relationship Specialty Start Date End Date Sade Dykes PA-C [address] [place] [address] [facility] - General 04/14/13
--- OUTSIDE RECORDS SUMMARY | 2025-03-24 09:49 | XMS_ITS | Encounter Summary ---
Author Organization [facility] Address [address] [place] [address] Care Team Providers Care Doubling Machine Operator Name Role Phone Tram Álvarez MD Primary Care Provider [phone] Encounter Details Date Type Department Care Team (Late st Contact Info) Description 10/07/2024 Lab Requisition [facility] - Main Lab 299 [facility] [place] [address] Prince Le MD 38 [facility] 204 [place], [address] Type 2 diabetes mellitus without complications [...] V28) documented in this encounter Care Teams Doubling Machine Operator Relationship Specialty Start Date End Date Tram Álvarez MD [address] [place] [address] , [address] [facility] Physician Associ D/B/A: [facility] [place], [place] PCP - General Internal Medicine 03/30/18 documented as of this encounter
--- OUTSIDE RECORDS SUMMARY | 2025-03-24 09:49 | XMS_ITS | Encounter Summary ---
Author Organization [facility] Address [address] [place] [address] Care Team Providers Care Test Fixture Assembler Name Role Phone Tram Álvarez MD Primary Care Provider [phone] Encounter Details Date Type Department Care Team (Late st Contact Info) Description 07/22/2024 Lab Requisition [facility] - Main Lab [address] [place] [address] Prince Le MD 38 [facility] 204 [place], [address] Type 2 diabetes mellitus without complications [...] mg/dL LAB CHEMISTRY METHOD 07/23/2024 10:47 AM [facility] Blood Venous blood specimen / Unknown Venipuncture / Unknown 07/23/2024 6:52 AM EST 07/23/2024 9:26 AM EST us Prince Le MD LAB BLOOD ORDERABLES Final Resul t [facility] [address] [place] [address], * (ABNORMAL) Comprehensive metabolic panel (07/23/2024 6:52 AM EST) Sodium 137 133 - 145 mmol/L LAB CHEMISTRY METHOD 07/23/2024 10:47 AM [facility] Potassium 5.3 3.5 - 5.5 mmol/L LAB CHEMISTRY METHOD 07/23/2024 10:47 AM [facility] Chloride 102 96 - 110 mmol/L LAB CHEMISTRY METHOD 07/23/2024 10:47 AM [facility] CO2 28 21 - 32 mmol/L LAB CHEMISTRY METHOD 07/23/2024 10:47 AM [facility] Anion Gap 7 3 - 11 LAB CHEMISTRY METHOD 07/23/2024 10:47 AM [facility] Glucose 78 70 - 100 mg/dL LAB CHEMISTRY METHOD 07/23/2024 10:47 AM [facility] BUN 39(H) 5 - 25 mg/dL LAB CHEMISTRY METHOD 07/23/2024 10:47 AM [facility] Creatinine 1.58(H) 0.70 - 1.30 mg/dL LAB CHEMISTRY METHOD 07/23/2024 10:47 AM [facility] eGFR 47(L) >=60 mL/min/1. 73m2 LAB CHEMISTRY METHOD 07/23/2024 10:47 AM [facility] Comment:Calculation based on the Chronic Kidney Disease Epidemiology Collaboration (CKD-EPI) equation refit without adjustment for race. BUN/Creatinine Ratio 24.7 LAB CHEMISTRY METHOD 07/23/2024 10:47 AM [facility] Calcium 9.5 8.5 - 10.5 mg/dL LAB CHEMISTRY METHOD 07/23/2024 10:47 AM [facility] AST (SGOT) 25 10 - 42 unit/L LAB CHEMISTRY METHOD 07/23/2024 10:47 AM [facility] ALT (SGPT) 26 10 - 60 unit/L LAB CHEMISTRY METHOD 07/23/2024 10:47 AM [facility] Alkaline Phosphatase 68 42 - 121 unit/L LAB CHEMISTRY METHOD 07/23/2024 10:47 AM [facility] Total Protein 6.9 6.0 - 8.0 g/dL LAB CHEMISTRY METHOD 07/23/2024 10:47 AM [facility] Albumin 3.5 3.2 - 5.0 g/dL LAB CHEMISTRY METHOD 07/23/2024 10:47 AM [facility] Total Bilirubin 0.4 0.0 - 1.4 mg/dL LAB CHEMISTRY METHOD 07/23/2024 10:47 AM [facility] Blood Venous blood specimen / Unknown Venipuncture / Unknown 07/23/2024 6:52 AM EST 07/23/2024 9:26 AM EST us Prince Le MD LAB BLOOD ORDERABLES Final Resul t [facility] [address] [place] [address], * (ABNORMAL) Complete blood count (07/23/2024 6:52 AM EST) WBC 9.2 4.8 - 10.8 K/mcL LAB HEMETOLOGY METHOD 07/23/2024 10:13 AM EST [facility] RBC 4.90 4.50 - 5.50 M/mcL LAB HEMETOLOGY METHOD 07/23/2024 10:13 AM [facility] Hemoglobin 13.6 13.5 - 17.5 g/dL LAB HEMETOLOGY METHOD 07/23/2024 10:13 AM [facility] Hematocrit 41.2(L) 42.0 - 54.0 % LAB HEMETOLOGY METHOD 07/23/2024 10:13 AM [facility] MCV 83.7 79.0 - 98.0 FL LAB HEMETOLOGY METHOD 07/23/2024 10:13 AM [facility] MCH 27.6 27.0 - 32.0 pcg LAB HEMETOLOGY METHOD 07/23/2024 10:13 AM [facility] MCHC 33.0 32.0 - 37.0 g/dL LAB HEMETOLOGY METHOD 07/23/2024 10:13 AM [facility] RDW 19.0(H) 11.0 - 15.0 % LAB HEMETOLOGY METHOD 07/23/2024 10:13 AM [facility] Platelets 364 130 - 400 K/mcL LAB HEMETOLOGY METHOD 07/23/2024 10:13 AM [facility] MPV 12.2(H) 7.0 - 11.0 FL LAB HEMETOLOGY METHOD 07/23/2024 10:13 AM [facility] NRBC 0.0 <1.0 % LAB HEMETOLOGY METHOD 07/23/2024 10:13 AM [facility] NRBC Absolute 0.00 <0.10 K/mcL LAB HEMETOLOGY METHOD 07/23/2024 10:13 AM [facility] Blood Venous blood specimen / Unknown Venipuncture / Unknown 07/23/2024 6:52 AM EST 07/23/2024 9:26 AM EST us Prince Le MD LAB BLOOD ORDERABLES Final Resul t [facility] [address] [place] [address], documented in this encounter Visit Diagnoses Diagnosis Type 2 diabetes mellitus without complications (CMS/HCC V24, CMS/HCC V28) documented in this encounter Care Teams Test Fixture Assembler Relationship Specialty Start Date End Date Tram Álvarez MD 2 [facility] , [address] [facility] Physician Associ D/B/A: [facility] [place], [place] PCP - General Internal Medicine 03/30/18 documented as of this encounter
--- OUTSIDE RECORDS SUMMARY | 2025-03-24 09:49 | XMS_ITS | Encounter Summary ---
Author Organization [facility] Address [address] [place] [address] Care Team Providers Care Class C Truck Driver Name Role Phone Tram Álvarez MD Primary Care Provider Encounter Details Date Type Department Care Team (Late st Contact Info) Description 10/18/2024 Lab Requisition [facility] - Main Lab [address] [place] [address] Preeti Lujan MD [address] [phone] Sepsis, unspecified organism (CMS/HCC V24, CMS/HCC V28) [...] LAB CHEMISTRY METHOD 10/18/2024 1:15 PM EDT [facility] Potassium 4.0 3.5 - 5.5 mmol/L LAB CHEMISTRY METHOD 10/18/2024 1:15 PM [facility] Chloride 113(H) 96 - 110 mmol/L LAB CHEMISTRY METHOD 10/18/2024 1:15 PM [facility] CO2 22 21 - 32 mmol/L LAB CHEMISTRY METHOD 10/18/2024 1:15 PM [facility] Anion Gap 7 3 - 11 LAB CHEMISTRY METHOD 10/18/2024 1:15 PM [facility] Glucose 114(H) 70 - 100 mg/dL LAB CHEMISTRY METHOD 10/18/2024 1:15 PM [facility] BUN 12 5 - 25 mg/dL LAB CHEMISTRY METHOD 10/18/2024 1:15 PM [facility] Creatinine 0.58(L) 0.70 - 1.30 mg/dL LAB CHEMISTRY METHOD 10/18/2024 1:15 PM [facility] eGFR 106 >=60 mL/min/1. 73m2 LAB CHEMISTRY METHOD 10/18/2024 1:15 PM [facility] Comment:Calculation based on the Chronic Kidney Disease Epidemiology Collaboration (CKD-EPI) equation refit without adjustment for race. BUN/Creatinine Ratio 20.7 LAB CHEMISTRY METHOD 10/18/2024 1:15 PM [facility] Calcium 8.7 8.5 - 10.5 mg/dL LAB CHEMISTRY METHOD 10/18/2024 1:15 PM [facility] Blood Venous blood specimen / Unknown Venipuncture / Unknown 10/18/2024 9:03 AM EDT 10/18/2024 11:02 AM EDT us Preeti Lujan MD LAB BLOOD ORDERABLES Fin al Result [facility] [address] [place] [address], [place] [phone] * (ABNORMAL) Complete blood count (10/18/2024 9:03 AM EDT) [facility] WBC 5.9 4.8 - 10.8 K/mcL LAB HEMETOLOGY METHOD 10/18/2024 1:35 PM EDT [facility] RBC 3.40(L) 4.50 - 5.50 M/mcL LAB HEMETOLOGY METHOD 10/18/2024 1:35 PM EDT [facility] Hemoglobin 10.1(L) 13.5 - 17.5 g/dL LAB HEMETOLOGY METHOD 10/18/2024 1:35 PM [facility] Hematocrit 32.3(L) 42.0 - 54.0 % LAB HEMETOLOGY METHOD 10/18/2024 1:35 PM [facility] MCV 96.4 79.0 - 98.0 FL LAB HEMETOLOGY METHOD 10/18[facility]24 [facility] MCH 30.1 27.0 - 32.0 pcg LAB HEMETOLOGY METHOD 10/18/2024 1:35 PM [facility] MCHC 31.3(L) 32.0 - 37.0 g/dL LAB HEMETOLOGY METHOD 10/18/2024 1:35 PM [facility] RDW 18.2(H) 11.0 - 15.0 % LAB HEMETOLOGY METHOD 10/18/2024 1:35 PM EDT [facility] Platelets 275 130 - 400 K/mcL LAB HEMETOLOGY METHOD 10/18/2024 1:35 PM [facility] MPV 13.2(H) 7.0 - 11.0 FL LAB HEMETOLOGY METHOD 10/18/2024 1:35 [facility] NRBC 0.0 <1.0 [...] Result [facility] [address] [place] [address], documented in this encounter Visit Diagnoses Diagnosis Sepsis, unspecified organism (CMS/HCC V24, CMS/HCC V28) documented in this encounter Care Teams Class C Truck Driver Relationship Specialty Start Date End Date Tram Álvarez MD 2 [facility] , [address] [place] [address] Physician Associ D/B/A: [facility] [place], [place] PCP - General Internal Medicine 03/30/18 documented as of this encounter
--- OUTSIDE RECORDS SUMMARY | 2025-03-24 09:49 | XMS_ITS | Encounter Summary ---
Author Organization [facility] Address [address] [place] [address] Care Team Providers Care Music Director Name Role Phone Tram Álvarez MD Primary Care Provider [phone] Encounter Details Date Type Department Care Team (Late st Contact Info) Description 10/14/2024 Lab Requisition [facility] - Main Lab 299 [facility] [place] [address] Prince Le MD 38 [facility] 204 [place], [address] Type 2 diabetes mellitus without complications [...] V28) documented in this encounter Care Teams Music Director Relationship Specialty Start Date End Date Tram Álvarez MD [address] [place] [address] , [address] [facility] Physician Associ D/B/A: [facility] [place], [place] PCP - General Internal Medicine 03/30/18 documented as of this encounter
--- OUTSIDE RECORDS SUMMARY | 2025-03-24 09:49 | XMS_ITS | Encounter Summary ---
Author Organization [facility] Address [address] [place] [address] Care Team Providers Care Medical Collections Representative Name Role Phone Tram Álvarez MD Primary Care Provider [phone] Encounter Details Date Type Department Care Team (Late st Contact Info) Description 08/12/[address] [facility] - Main Lab [address] [place] [address] Prince Le MD 38 [facility] 204 [place], [address] Type 2 diabetes mellitus without complications [...] t [facility] [address] [place] [address], * (ABNORMAL) Comprehensive metabolic panel (08/13/2024 7:38 [...] t [facility] [address] [place] [address], * (ABNORMAL) Complete blood count (08/13/2024 7:30 [...] ORDERABLES Final Resul t [facility] [address] [place] [address], documented in this encounter Visit Diagnoses Diagnosis Type 2 diabetes mellitus without complications (CMS/HCC V24, CMS/HCC V28) documented in this encounter Care Teams Medical Collections Representative Relationship Specialty Start Date End Date Tram Álvarez MD 2 [facility] , [address] [facility] Physician Associ D/B/A: [facility] [place], [place] PCP - General Internal Medicine 03/30/18 documented as of this encounter
--- OUTSIDE RECORDS SUMMARY | 2025-03-24 09:49 | XMS_ITS | Encounter Summary ---
Author Organization [facility] Address [address] [place] [address] Care Team Providers Care Carbide Operator Name Role Phone Tram Álvarez MD Primary Care Provider [phone] Encounter Details Date Type Department Care Team (Late st Contact Info) Description 10/07/2024 Lab Requisition [facility] - Main Lab [address] [place] [address] Prince Le MD 38 [facility] 204 [place], [address] Type 2 diabetes mellitus without [...] AM EDT) WBC 17.5(H) 4.8 - 10.8 K/[facility] LAB HEMETOLOGY METHOD 10/07/2024 9:32 AM [facility] RBC 3.80(L) 4.50 - 5.50 M/mcL LAB HEMETOLOGY METHOD 10/07/2024 9:32 AM [facility] Hemoglobin 11.2(L) 13.5 - 17.5 g/dL LAB HEMETOLOGY METHOD 10/07/2024 9:32 AM [facility] Hematocrit 35.1(L) 42.0 - 54.0 % LAB HEMETOLOGY METHOD 10/07/2024 9:32 AM [facility] MCV 92.4 79.0 - 98.0 FL LAB HEMETOLOGY METHOD 10/07/2024 9:32 AM [facility] MCH 29.5 27.0 - 32.0 pcg LAB HEMETOLOGY METHOD 10/07/2024 9:32 AM [facility] MCHC 31.9(L) 32.0 - 37.0 g/dL LAB HEMETOLOGY METHOD 10/07/2024 9:32 AM [facility] RDW 16.6(H) 11.0 - 15.0 % LAB HEMETOLOGY METHOD 10/07/2024 9:32 AM [facility] Platelets 230 130 - 400 K/mcL LAB HEMETOLOGY METHOD 10/07/2024 9:32 AM [facility] MPV 13.0(H) 7.0 - 11.0 FL LAB HEMETOLOGY METHOD 10/07/2024 9:32 AM [facility] NRBC 0.0 <1.0 % LAB HEMETOLOGY METHOD 10/07/2024 9:32 AM [facility] NRBC Absolute 0.00 <0.10 K/mcL LAB HEMETOLOGY METHOD 10/07/2024 9:32 AM [facility] Neutrophils Relative 82.3 % LAB HEMETOLOGY METHOD 10/07/2024 9:32 AM [facility] Lymphocytes Relative 10.0 % LAB HEMETOLOGY METHOD 10/07/2024 9:32 AM [facility] Monocytes Relative 4.6 % LAB HEMETOLOGY METHOD 10/07/2024 9:32 AM [facility] Eosinophils Relative 2.2 % LAB HEMETOLOGY METHOD 10/07/2024 9:32 AM [facility] Basophils Relative 0.3 % LAB HEMETOLOGY METHOD 10/07/2024 9:32 AM [facility] Immature Granulocytes Relative 0.6 % LAB HEMETOLOGY METHOD 10/07/2024 9:32 AM [facility] Neutrophils Absolute 14.41(H) 1.50 - 7.00 K/mcL LAB HEMETOLOGY METHOD 10/07/2024 9:32 AM [facility] Lymphocytes Absolute 1.74 1.00 - 5.00 K/mcL LAB HEMETOLOGY METHOD 10/07/2024 9:32 AM [facility] Monocytes Absolute 0.80 0.20 - 1.00 K/mcL LAB HEMETOLOGY METHOD 10/07/2024 9:32 AM [facility] Eosinophils Absolute 0.38 0.00 - 0.50 K/mcL LAB HEMETOLOGY METHOD 10/07/2024 9:32 AM [facility] Basophils Absolute 0.05 0.00 - 0.20 K/mcL LAB HEMETOLOGY METHOD 10/07/2024 9:32 AM [facility] Immature Granulocytes Absolute 0.10(H) 0.00 - 0.03 K/mcL LAB HEMETOLOGY METHOD 10/07/2024 9:32 AM [facility] Blood Venous blood specimen / Unknown Venipuncture / Unknown 10/07/2024 5:18 AM EDT 10/07/2024 8:56 AM EDT us Prince Le MD LAB BLOOD ORDERABLES Final Resul t [facility] [address] [place] [address], [place] [phone] * (ABNORMAL) Basic metabolic panel (10/07/2024 5:18 AM EDT) Sodium 132(L) 133 - 145 mmol/L LAB CHEMISTRY METHOD 10/07/2024 10:16 AM [facility] Potassium 5.0 3.5 - 5.5 mmol/L LAB CHEMISTRY METHOD 10/07/2024 10:16 AM [facility] Chloride 99 96 - 110 mmol/L LAB CHEMISTRY METHOD 10/07/2024 10:16 AM [facility] CO2 22 21 - 32 mmol/L LAB CHEMISTRY METHOD 10/07/2024 10:16 AM [facility] Anion Gap 11 3 - 11 LAB CHEMISTRY METHOD 10/07/2024 10:16 AM [facility] Glucose 82 70 - 100 mg/dL LAB CHEMISTRY METHOD 10/07/2024 10:16 AM [facility] BUN 54(H) 5 - 25 mg/dL LAB CHEMISTRY METHOD 10/07/2024 10:16 AM [facility] Creatinine 2.44(H) 0.70 - 1.30 mg/dL LAB CHEMISTRY METHOD 10/07/2024 10:16 AM [facility] eGFR 28(L) >=60 mL/min/1. 73m2 LAB CHEMISTRY METHOD 10/07/2024 10:16 AM [facility] Comment:Calculation based on the Chronic Kidney Disease Epidemiology Collaboration (CKD-EPI) equation refit without adjustment for race. BUN/Creatinine Ratio 22.1 LAB CHEMISTRY METHOD 10/07/2024 10:16 AM T [facility] Calcium 8.9 8.5 - 10.5 mg/dL LAB CHEMISTRY METHOD 10/07/2024 10:16 AM EDT [facility] Blood Venous blood specimen / Unknown Venipuncture / Unknown 10/07/2024 5:18 AM EDT 10/07/2024 8:56 AM EDT us Prince Le MD LAB BLOOD ORDERABLES Final Resul t [facility] [address] [place] [address], [place] [phone] documented in this encounter Visit Diagnoses Diagnosis Type 2 diabetes mellitus without complications (CMS/HCC V24, CMS/HCC V28) documented in this encounter Care Teams Carbide Operator Relationship Specialty Start Date End Date Tram Álvarez MD 2 [facility] , [address] [place] [address] Physician Associ D/B/A: [facility] [place] PCP - General Internal Medicine 03/30/18 documented as of this encounter
--- OUTSIDE RECORDS SUMMARY | 2025-03-24 09:49 | XMS_ITS | Clinical Summary ---
Author Organization [facility] Address [address] [place] [address] Phone Care Team Providers Care Machinist Tool And Die Name Role Phone Tram Álvarez MD Primary Care Provider [phone] Encounters Date Type Department Care Team Description 03/01/2025 Lab Requisition [facility] [address] [place] [address] Preeti Lujan MD Essential (primary) hypertension 02/24/2025 Lab Requisition [facility] Lab [address] [place] [address] Preeti Lujan MD Essential (primary) [...] EDT Type 2 diabetes mellitus without complications ([facility] V24, [facility] V28) LIPID PANEL WITH REFLEX TO DIRECT LDL Routine 08/27/2024 6:34 AM EST Type 2 diabetes mellitus without complications ([facility]) from Last 3 Months or Most Recently Relevant to Health Maintenance Results * (ABNORMAL) Basic metabolic panel (03/01/2025 6:05 AM EDT) Only the most recent of2 resultswithin the time period is included. Sodium 141 133 - 145 mmol/L LAB CHEMISTRY METHOD 03/01/2025 11:14 AM [facility] Potassium 4.6 3.5 - 5.5 mmol/L LAB CHEMISTRY METHOD 03/01/2025 11:14 AM [facility] Chloride 112(H) 96 - 110 mmol/L LAB CHEMISTRY METHOD 03/01/2025 11:14 AM [facility] CO2 25 21 - 32 mmol/L LAB CHEMISTRY METHOD 03/01/2025 11:14 AM [facility] Anion Gap 4 3 - 11 LAB CHEMISTRY METHOD 03/01/2025 11:14 AM [facility] Glucose 135(H) 70 - 100 mg/dL LAB CHEMISTRY METHOD 03/01/2025 11:14 AM [facility] BUN 25 5 - 25 mg/dL LAB CHEMISTRY METHOD 03/01/2025 11:14 AM [facility] Creatinine 0.76 0.70 - 1.30 mg/dL LAB CHEMISTRY METHOD 03/01/2025 11:14 AM [facility] eGFR 97 >=60 mL/min/1. 73m2 LAB CHEMISTRY METHOD 03/01/2025 11:14 AM [facility] Comment:Calculation based on the Chronic Kidney Disease Epidemiology Collaboration (CKD-EPI) equation refit without adjustment for race. BUN/Creatinine Ratio 32.9 LAB CHEMISTRY METHOD 03/01/2025 11:14 AM EDT [facility] Calcium 8.5 8.5 - 10.5 mg/dL LAB CHEMISTRY METHOD 03/01/2025 11:14 AM [facility] Blood Venous blood specimen / Unknown Venipuncture / Unknown 03/01/2025 6:05 AM EDT 03/01/2025 8:40 AM EDT us Preeti Lujan MD LAB BLOOD ORDERABLES Fin al Result [facility] [address] [place] [address], * (ABNORMAL) Complete blood count (02/24/2025 6:34 AM EDT) WBC 7.9 4.8 - 10.8 K/mcL LAB HEMETOLOGY METHOD 02/24/2025 9:35 AM [facility] RBC 3.90(L) 4.50 - 5.50 M/mcL LAB HEMETOLOGY METHOD 02/24/2025 9:35 AM [facility] Hemoglobin 11.0(L) 13.5 - 17.5 g/dL LAB HEMETOLOGY METHOD 02/24/2025 9:35 AM [facility] Hematocrit 36.9(L) 42.0 - 54.0 % LAB HEMETOLOGY METHOD 02/24/2025 9:35 AM [facility] MCV 95.3 79.0 - 98.0 FL LAB HEMETOLOGY METHOD 02/24/2025 9:35 AM [facility] MCH 28.4 27.0 - 32.0 [...] al Result [facility] [address] [place] [address], * Hemoglobin A1c (10/22/2024 6:43 AM EDT) [...] ORDERABLES Fin al Result Performing Organization Address City/[facility]/ZIP Co de Phone Number [facility] [address] [place] [address], [place] [phone] * (ABNORMAL) Lipid panel with reflex to direct LDL (08/27/2024 6:34 AM EST) [facility] Cholesterol 96 0 - 200 mg/dL LAB [...] ORDERABLES Final Resul t Performing Organization Address [facility]/ZIP Co de Phone Number [facility] [address] [place] [address], [place] [phone] from Last 3 Months or Most Recently Relevant to Health Maintenance Insurance [employer] MED[employer] Member Subscriber Plan / Payer (Ef fective 2023-Present) Name:EDER GARCIA Relation to Subscriber:Self Name:Rick Eder Talamantes Payer ID:[id number] Group ID:[id number] Type:Not on file Address: [place] [address] [address] [place] [id number] Care Teams Machinist Tool And Die Relationship Specialty Start Date End Date Tram Álvarez MD [address] [place] [address] , [address] [facility] Physician Associ D/B/A: [facility] JAS Duque PCP - General Internal Medicine 03/30/18
--- OUTSIDE RECORDS SUMMARY | 2025-03-24 09:49 | XMS_ITS | Clinical Summary ---
Author Organization [facility] Address [address] [place] [id number] Care Team Providers Care Oil Truck Driver Name Role Phone Tram Royal MD Primary Care Provider [phone] Allergies Active Allergy Reactions Criticality Noted Date [...] % PVNMA 04/28/2020 us [facility] [id number] LICITED RESULTS Final Result PVNMA from Last 3 Months or Most Recently Relevant to Health Maintenance Insurance [address] [place] [id number] Medicaid [place] [address] [place] [id number] Medicaid [place] Care Teams Oil Truck Driver Relationship Specialty Start Date End Date Tram Royal MD [address] [place] PCP - General 07/17/20
--- OUTSIDE RECORDS SUMMARY | 2025-03-24 09:49 | XMS_ITS | Encounter Summary ---
Author Organization [facility] Address [address] [place] [address] Care Team Providers Care Residential Tech Name Role Phone Tram Álvarez MD Primary Care Provider Encounter Details Date Type Department Care Team (Late st Contact Info) Description 02/24/2025 Lab Requisition [facility] - Main Lab [address] [facility], [facility] [place] [address] Preeti Lujan MD [address] [id number] Essential (primary) hypertension Social History Tobacco Use [...] LAB CHEMISTRY METHOD 02/24/2025 9:39 AM EDT [facility] Potassium 6.0(H) 3.5 - 5.5 mmol/L LAB CHEMISTRY METHOD 02/24/2025 9:39 AM EDT [facility] Chloride 110 96 - 110 mmol/L LAB CHEMISTRY METHOD 02/24/2025 9:39 AM [facility] CO2 27 21 - 32 mmol/L LAB CHEMISTRY METHOD 02/24/2025 9:39 AM [facility] Anion Gap 4 3 - 11 LAB CHEMISTRY METHOD 02/24/2025 9:39 AM [facility] Glucose 117(H) 70 - 100 mg/dL LAB CHEMISTRY METHOD 02/24/2025 9:39 AM [facility] BUN 27(H) 5 - 25 mg/dL LAB CHEMISTRY METHOD 02/24/2025 9:39 AM [facility] Creatinine 0.84 0.70 - 1.30 mg/dL LAB CHEMISTRY METHOD 02/24/2025 9:39 AM [facility] eGFR 94 >=60 mL/min/1. 73m2 LAB CHEMISTRY METHOD 02/24/2025 9:39 AM [facility] Comment:Calculation based on the Chronic Kidney Disease Epidemiology Collaboration (CKD-EPI) equation refit without adjustment for race. BUN/Creatinine Ratio 32.1 LAB CHEMISTRY METHOD 02/24/2025 9:39 AM [facility] Calcium 9.4 8.5 - 10.5 mg/dL LAB CHEMISTRY METHOD 02/24/2025 9:39 AM [facility] Blood Venous blood specimen / Unknown Venipuncture / Unknown 02/24/2025 6:34 AM EDT 02/24/2025 8:31 AM EDT us Preeti Lujan MD LAB BLOOD ORDERABLES Fin al Result [facility] [address] [place] [address], * (ABNORMAL) Complete blood count (02/24/2025 6:34 AM EDT) WBC 7.9 4.8 - 10.8 K/mcL LAB HEMETOLOGY METHOD 02/24/2025 9:35 AM [facility] RBC 3.90(L) 4.50 - 5.50 M/mcL LAB HEMETOLOGY METHOD 02/24/2025 9:35 AM [facility] Hemoglobin 11.0(L) 13.5 - 17.5 g/dL LAB HEMETOLOGY METHOD 02/24/2025 9:35 AM [facility] Hematocrit 36.9(L) 42.0 - 54.0 % LAB HEMETOLOGY METHOD 02/24/2025 9:35 AM [facility] MCV 95.3 79.0 - 98.0 FL LAB HEMETOLOGY METHOD 02/24/2025 9:35 AM [facility] MCH 28.4 27.0 - 32.0 pcg LAB HEMETOLOGY METHOD 02/24/2025 9:35 AM [facility] MCHC 29.8(L) 32.0 - 37.0 g/dL LAB HEMETOLOGY METHOD 02/24/2025 9:35 AM [facility] RDW 17.6(H) 11.0 - 15.0 % LAB HEMETOLOGY METHOD 02/24/2025 9:35 AM [facility] Platelets 287 130 - 400 K/mcL LAB HEMETOLOGY METHOD 02/24/2025 9:35 AM [facility] MPV 12.9(H) 7.0 - 11.0 FL LAB HEMETOLOGY METHOD 02/24/2025 9:35 AM [facility] NRBC 0.0 <1.0 % LAB HEMETOLOGY METHOD 02/24/2025 9:35 AM [facility] NRBC Absolute 0.00 <0.10 K/mcL LAB HEMETOLOGY METHOD 02/24/2025 9:35 AM EDT [facility] Blood Venous blood specimen / Unknown Venipuncture / Unknown 02/24/2025 6:34 AM EDT 02/24/2025 8:31 AM EDT us Preeti Lujan MD LAB BLOOD ORDERABLES Fin al Result [facility] [address] [place] [address], documented in this encounter Visit Diagnoses Diagnosis Essential (primary) hypertension Unspecified essential hypertension documented in this encounter Care Teams Residential Tech Relationship Specialty Start Date End Date Tram Álvarez MD [facility] , [address] Physician Associ D/B/A: [facility] [place] PCP - General Internal Medicine 03/30/18 documented as of this encounter
--- OUTSIDE RECORDS SUMMARY | 2025-03-24 09:49 | XMS_ITS | Encounter Summary ---
Author Organization [facility] Address [address] [place] [address] Care Team Providers Care Equipment Worker Name Role Phone Tram Álvarez MD Primary Care Provider [phone] Encounter Details Date Type Department Care Team (Late st Contact Info) Description 08/19/2024 Lab Requisition [facility] - Main Lab [address] [place] [address] Prince Le MD [address] [facility] [address] [place], [address] Type 2 diabetes mellitus without complications [...] mg/dL LAB CHEMISTRY METHOD 08/20/2024 11:12 AM [facility] Blood Venous blood specimen / Unknown Venipuncture / Unknown 08/20/2024 7:39 AM EST 08/20/2024 10:36 AM EST us Prince Le MD LAB BLOOD ORDERABLES Final Resul t [facility] [address] [place] [address], * (ABNORMAL) Comprehensive metabolic panel (08/20/2024 7:39 AM EST) Sodium 139 133 - 145 mmol/L LAB CHEMISTRY METHOD 08/20/2024 11:11 AM [facility] Potassium 4.5 3.5 - 5.5 mmol/L LAB CHEMISTRY METHOD 08/20/2024 11:11 AM [facility] Chloride 109 96 - 110 mmol/L LAB CHEMISTRY METHOD 08/20/2024 11:11 AM [facility] CO2 26 21 - 32 mmol/L LAB CHEMISTRY METHOD 08/20/2024 11:11 AM [facility] Anion Gap 4 3 - 11 LAB CHEMISTRY METHOD 08/20/2024 11:11 AM [facility] Glucose 120(H) 70 - 100 mg/dL LAB CHEMISTRY METHOD 08/20/2024 11:11 AM [facility] BUN 22 5 - 25 mg/dL LAB CHEMISTRY METHOD 08/20/2024 11:11 AM [facility] Creatinine 0.78 0.70 - 1.30 mg/dL LAB CHEMISTRY METHOD 08/20/2024 11:11 AM [facility] eGFR 97 >=60 mL/min/1. 73m2 LAB CHEMISTRY METHOD 08/20/2024 11:11 AM [facility] Comment:Calculation based on the Chronic Kidney Disease Epidemiology Collaboration (CKD-EPI) equation refit without adjustment for race. BUN/Creatinine Ratio 28.2 LAB CHEMISTRY METHOD 08/20/2024 11:11 AM [facility] Calcium 9.3 8.5 - 10.5 mg/dL LAB CHEMISTRY METHOD 08/20/2024 11:11 AM [facility] AST (SGOT) 35 10 - 42 unit/L LAB CHEMISTRY METHOD 08/20/2024 11:11 AM [facility] ALT (SGPT) 30 10 - 60 unit/L LAB CHEMISTRY METHOD 08/20/2024 11:11 AM [facility] Alkaline Phosphatase 39(L) 42 - 121 unit/L LAB CHEMISTRY METHOD 08/20/2024 11:11 AM [facility] Total Protein 6.6 6.0 - 8.0 g/dL LAB CHEMISTRY METHOD 08/20/2024 11:11 AM [facility] Albumin 3.5 3.2 - 5.0 g/dL LAB CHEMISTRY METHOD 08/20/2024 11:11 AM [facility] Total Bilirubin 0.8 0.0 - 1.4 mg/dL LAB CHEMISTRY METHOD 08/20/2024 11:11 AM [facility] Blood Venous blood specimen / Unknown Venipuncture / Unknown 08/20/2024 7:39 AM EST 08/20/2024 10:36 AM EST us Prince Le MD LAB BLOOD ORDERABLES Final Resul t [facility] [address] [place] [address], * (ABNORMAL) Complete blood count (08/20/2024 7:39 AM EST) WBC 13.2(H) 4.8 - 10.8 K/mcL LAB HEMETOLOGY METHOD 08/20/2024 10:52 AM [facility] RBC 3.90(L) 4.50 - 5.50 M/mcL LAB HEMETOLOGY METHOD 08/20/2024 10:52 AM [facility] Hemoglobin 11.0(L) 13.5 - 17.5 g/dL LAB HEMETOLOGY METHOD 08/20/2024 10:52 AM [facility] Hematocrit 33.1(L) 42.0 - 54.0 % LAB HEMETOLOGY METHOD 08/20/2024 10:52 AM [facility] MCV 85.3 79.0 - 98.0 FL LAB HEMETOLOGY METHOD 08/20/2024 10:52 AM [facility] MCH 28.4 27.0 - 32.0 pcg LAB HEMETOLOGY METHOD 08/20/2024 10:52 AM [facility] MCHC 33.2 32.0 - 37.0 g/dL LAB HEMETOLOGY METHOD 08/20/2024 10:52 AM [facility] RDW 20.9(H) 11.0 - 15.0 % LAB HEMETOLOGY METHOD 08/20/2024 10:52 AM [facility] Platelets 329 130 - 400 K/mcL LAB HEMETOLOGY METHOD 08/20/2024 10:52 AM [facility] MPV 13.2(H) 7.0 - 11.0 FL LAB HEMETOLOGY METHOD 08/20/2024 10:52 AM [facility] NRBC 0.0 <1.0 % LAB HEMETOLOGY METHOD 08/20/2024 10:52 AM [facility] NRBC Absolute 0.00 <0.10 K/mcL LAB HEMETOLOGY METHOD 08/20/2024 10:52 AM [facility] Blood Venous blood specimen / Unknown Venipuncture / Unknown 08/20/2024 7:39 AM EST 08/20/2024 10:36 AM EST us Prince Le MD LAB BLOOD ORDERABLES Final Resul t [facility] [address] [place] [address], documented in this encounter Visit Diagnoses Diagnosis Type 2 diabetes mellitus without complications (CMS/HCC V24, CMS/HCC V28) documented in this encounter Care Teams Equipment Worker Relationship Specialty Start Date End Date Tram Álvarez MD 2 [facility] , [address] [facility] Physician Associ D/B/A: [facility] JAS Duque PCP - General Internal Medicine 03/30/18 documented as of this encounter
--- OUTSIDE RECORDS SUMMARY | 2025-03-24 09:49 | XMS_ITS | Encounter Summary ---
Author Organization [facility] Address [address] [place] [address] Care Team Providers Care Analytical Lab Analyst Name Role Phone Tram Álvarez MD Primary Care Provider [phone] Encounter Details Date Type Department Care Team (Late st Contact Info) Description 09/02/2024 Lab Requisition [facility] - Main Lab [address] [place] [address] Prince Le MD 38 [facility] [address] [place], [address] Type 2 diabetes mellitus without complications [...] mg/dL LAB CHEMISTRY METHOD 09/03/2024 10:05 AM [facility] Blood Venous blood specimen / Unknown Venipuncture / Unknown 09/03/2024 6:35 AM EST 09/03/2024 7:52 AM EST us Prince Le MD LAB BLOOD ORDERABLES Final Resul t [facility] [address] [place] [address], * (ABNORMAL) Comprehensive metabolic panel (09/03/2024 6:35 AM EST) Sodium 138 133 - 145 mmol/L LAB CHEMISTRY METHOD 09/03/2024 9:59 AM [facility] Potassium 4.2 3.5 - 5.5 mmol/L LAB CHEMISTRY METHOD 09/03/2024 9:59 AM [facility] Chloride 105 96 - 110 mmol/L LAB CHEMISTRY METHOD 09/03/2024 9:59 AM [facility] CO2 28 21 - 32 mmol/L LAB CHEMISTRY METHOD 09/03/2024 9:59 AM [facility] Anion Gap 5 3 - 11 LAB CHEMISTRY METHOD 09/03/2024 9:59 AM [facility] Glucose 120(H) 70 - 100 mg/dL LAB CHEMISTRY METHOD 09/03/2024 9:59 AM [facility] BUN 23 5 - 25 mg/dL LAB CHEMISTRY METHOD 09/03/2024 9:59 AM [facility] Creatinine 0.88 0.70 - 1.30 mg/dL LAB CHEMISTRY METHOD 09/03/2024 9:59 AM [facility] eGFR 94 >=60 mL/min/1. 73m2 LAB CHEMISTRY METHOD 09/03/2024 9:59 AM [facility] Comment:Calculation based on the Chronic Kidney Disease Epidemiology Collaboration (CKD-EPI) equation refit without adjustment for race. BUN/Creatinine Ratio 26.1 LAB CHEMISTRY METHOD 09/03/2024 9:59 AM [facility] Calcium 9.1 8.5 - 10.5 mg/dL LAB CHEMISTRY METHOD 09/03/2024 9:59 AM [facility] AST (SGOT) 23 10 - 42 unit/L LAB CHEMISTRY METHOD 09/03/2024 9:59 AM [facility] ALT (SGPT) 29 10 - 60 unit/L LAB CHEMISTRY METHOD 09/03/2024 9:59 AM [facility] Alkaline Phosphatase 59 42 - 121 unit/L LAB CHEMISTRY METHOD 09/03/2024 9:59 AM [facility] Total Protein 5.9(L) 6.0 - 8.0 g/dL LAB CHEMISTRY METHOD 09/03/2024 9:59 AM [facility] Albumin 3.1(L) 3.2 - 5.0 g/dL LAB CHEMISTRY METHOD 09/03/2024 9:59 AM [facility] Total Bilirubin 0.4 0.0 - 1.4 mg/dL LAB CHEMISTRY METHOD 09/03/2024 9:59 AM [facility] Blood Venous blood specimen / Unknown Venipuncture / Unknown 09/03/2024 6:35 AM EST 09/03/2024 7:52 AM EST us Prince Le MD LAB BLOOD ORDERABLES Final Resul t [facility] [address] [place] [address], * (ABNORMAL) Complete blood count (09/03/2024 6:35 AM EST) WBC 9.2 4.8 - 10.8 K/mcL LAB HEMETOLOGY METHOD 09/03/2024 8:43 AM [facility] RBC 3.70(L) 4.50 - 5.50 M/mcL LAB HEMETOLOGY METHOD 09/03/2024 8:43 AM [facility] Hemoglobin 10.8(L) 13.5 - 17.5 g/dL LAB HEMETOLOGY METHOD 09/03/2024 8:43 AM [facility] Hematocrit 34.4(L) 42.0 - 54.0 % LAB HEMETOLOGY METHOD 09/03/2024 8:43 AM [facility] MCV 93.5 79.0 - 98.0 FL LAB HEMETOLOGY METHOD 09/03/2024 8:43 AM [facility] MCH 29.3 27.0 - 32.0 pcg LAB HEMETOLOGY METHOD 09/03/2024 8:43 AM [facility] MCHC 31.4(L) 32.0 - 37.0 g/dL LAB HEMETOLOGY METHOD 09/03/2024 8:43 AM [facility] RDW 20.0(H) 11.0 - 15.0 % LAB HEMETOLOGY METHOD 09/03/2024 8:43 AM [facility] Platelets 333 130 - 400 K/mcL LAB HEMETOLOGY METHOD 09/03/2024 8:43 AM [facility] MPV 12.3(H) 7.0 - 11.0 FL LAB HEMETOLOGY METHOD 09/03/2024 8:43 AM [facility] NRBC 0.0 <1.0 % LAB HEMETOLOGY METHOD 09/03/2024 8:43 AM [facility] NRBC Absolute 0.00 <0.10 K/mcL LAB HEMETOLOGY METHOD 09/03/2024 8:43 AM [facility] Blood Venous blood specimen / Unknown Venipuncture / Unknown 09/03/2024 6:35 AM EST 09/03/2024 7:52 AM EST us Prince Le MD LAB BLOOD ORDERABLES Final Resul t [facility] ([facility] [address] [place] [address], documented in this encounter Visit Diagnoses Diagnosis Type 2 diabetes mellitus without complications (CMS/HCC V24, CMS/HCC V28) documented in this encounter Care Teams Analytical Lab Analyst Relationship Specialty Start Date End Date Tram Álvarez MD 2 [facility] , [address] [facility] Physician Associ D/B/A: [facility] JAS Duque PCP - General Internal Medicine 03/30/18 documented as of this encounter
--- OUTSIDE RECORDS SUMMARY | 2025-03-24 09:50 | XMS_ITS | Encounter Summary ---
Author Organization [facility] Address [address] [place] [address] Care Team Providers Care Dough Braker Name Role Phone Tram Álvarez MD Primary Care Provider [phone] Encounter Details Date Type Department Care Team (Late st Contact Info) Description 09/30/2024 Lab Requisition [facility] - Main Lab [address] [place] [address] Prince Le MD 38 [facility] [address] [place], [address] Type 2 diabetes mellitus without complications [...] mg/dL LAB CHEMISTRY METHOD 10/01/2024 11:57 AM [facility] Blood Venous blood specimen / Unknown Venipuncture / Unknown 10/01/2024 8:01 AM EDT 10/01/2024 10:24 AM EDT us Prince Le MD LAB BLOOD ORDERABLES Final Resul t [facility] [address] [place] [address], [place] [phone] * (ABNORMAL) Comprehensive metabolic panel (10/01/2024 8:01 AM EDT) Sodium 134 133 - 145 mmol/L LAB CHEMISTRY METHOD 10/01/2024 12:02 PM [facility] Potassium 4.7 3.5 - 5.5 mmol/L LAB CHEMISTRY METHOD 10/01/2024 12:02 PM [facility] Chloride 101 96 - 110 mmol/L LAB CHEMISTRY METHOD 10/01/2024 12:02 PM [facility] CO2 27 21 - 32 mmol/L LAB CHEMISTRY METHOD 10/01/2024 12:02 PM [facility] Anion Gap 6 3 - 11 LAB CHEMISTRY METHOD 10/01/2024 12:02 PM [facility] Glucose 79 70 - 100 mg/dL LAB CHEMISTRY METHOD 10/01/2024 12:02 PM [facility] BUN 40(H) 5 - 25 mg/dL LAB CHEMISTRY METHOD 10/01/2024 12:02 PM [facility] Creatinine 1.55(H) 0.70 - 1.30 mg/dL LAB CHEMISTRY METHOD 10/01/2024 12:02 PM [facility] eGFR 48(L) >=60 mL/min/1. 73m2 LAB CHEMISTRY METHOD 10/01/2024 12:02 PM [facility] Comment:Calculation based on the Chronic Kidney Disease Epidemiology Collaboration (CKD-EPI) equation refit without adjustment for race. BUN/Creatinine Ratio 25.8 LAB CHEMISTRY METHOD 10/01/2024 12:02 PM [facility] Calcium 8.8 8.5 - 10.5 mg/dL LAB CHEMISTRY METHOD 10/01/2024 12:02 PM [facility] AST (SGOT) 63(H) 10 - 42 unit/L LAB CHEMISTRY METHOD 10/01/2024 12:02 PM [facility] ALT (SGPT) 30 10 - 60 unit/L LAB CHEMISTRY METHOD 10/01/2024 12:02 PM [facility] Alkaline Phosphatase 40(L) 42 - 121 unit/L LAB CHEMISTRY METHOD 10/01/2024 12:02 PM [facility] Total Protein 6.0 6.0 - 8.0 g/dL LAB CHEMISTRY METHOD 10/01/2024 12:02 PM [facility] Albumin 2.9(L) 3.2 - 5.0 g/dL LAB CHEMISTRY METHOD 10/01/2024 12:02 PM [facility] Total Bilirubin 0.4 0.0 - 1.4 mg/dL LAB CHEMISTRY METHOD 10/01/2024 12:02 PM [facility] Blood Venous blood specimen / Unknown Venipuncture / Unknown 10/01/2024 8:01 AM EDT 10/01/2024 10:24 AM EDT us Prince Le MD LAB BLOOD ORDERABLES Final Resul t [facility] [address] [place] [address], * (ABNORMAL) Complete blood count (10/01/2024 8:01 AM EDT) WBC 7.3 4.8 - 10.8 K/mcL LAB HEMETOLOGY METHOD 10/01/2024 11:11 AM [facility] RBC 4.00(L) 4.50 - 5.50 M/mcL LAB HEMETOLOGY METHOD 10/01/2024 11:11 AM [facility] Hemoglobin 11.8(L) 13.5 - 17.5 g/dL LAB HEMETOLOGY METHOD 10/01/2024 11:11 AM [facility] Hematocrit 37.0(L) 42.0 - 54.0 % LAB HEMETOLOGY METHOD 10/01/2024 11:11 AM [facility] MCV 93.7 79.0 - 98.0 FL LAB HEMETOLOGY METHOD 10/01/2024 11:11 AM [facility] MCH 29.9 27.0 - 32.0 pcg LAB HEMETOLOGY METHOD 10/01/2024 11:11 AM [facility] MCHC 31.9(L) 32.0 - 37.0 g/dL LAB HEMETOLOGY METHOD 10/01/2024 11:11 AM [facility] RDW 16.4(H) 11.0 - 15.0 % LAB HEMETOLOGY METHOD 10/01/2024 11:11 AM [facility] Platelets 416(H) 130 - 400 K/mcL LAB HEMETOLOGY METHOD 10/01/2024 11:11 AM [facility] MPV 11.3(H) 7.0 - 11.0 FL LAB HEMETOLOGY METHOD 10/01/2024 11:11 AM [facility] NRBC 0.0 <1.0 % LAB HEMETOLOGY METHOD 10/01/2024 11:11 AM [facility] NRBC Absolute 0.00 <0.10 K/mcL LAB HEMETOLOGY METHOD 10/01/2024 11:11 AM [facility] Blood Venous blood specimen / Unknown Venipuncture / Unknown 10/01/2024 8:01 AM EDT 10/01/2024 10:24 AM EDT us Prince Le MD LAB BLOOD ORDERABLES [facility] [address] [place] [address], documented in this encounter Visit Diagnoses Diagnosis Type 2 diabetes mellitus without complications (CMS/HCC V24, CMS/HCC V28) documented in this encounter Care Teams Dough Braker Relationship Specialty Start Date End Date Tram Álvarez MD 2 [facility] , [address] Physician Associ D/B/A: [facility] [place], [place] PCP - General Internal Medicine 03/30/18 documented as of this encounter
--- OUTSIDE RECORDS SUMMARY | 2025-03-24 09:50 | XMS_ITS | Clinical Summary ---
Author Organization [employer] [facility] Address [address] 7[address] [place] [address] Care Team Providers Care Financial Reporting Accountant Name Role Phone Unavailable Primary Care Provider [...] patient's age to complete this topic Insurance [facility] RETIREMENT OPTIONS (O D-SNP) JIM DIAZ [id number]
--- OUTSIDE RECORDS SUMMARY | 2025-03-24 09:50 | XMS_ITS | Encounter Summary ---
Author Organization [facility] Address [address] [place] [address] Care Team Providers Care Peeler Operator Name Role Phone Tram Álvarez MD Primary Care Provider [phone] Encounter Details Date Type Department Care Team (Late st Contact Info) Description 09/23/2024 Lab Requisition [facility] - Main Lab [address] [place] [address] Prince Le MD 38 [facility] [address] [place], [address] Type 2 diabetes mellitus without complications [...] LAB CHEMISTRY METHOD 09/24/2024 12:40 PM EDT [facility] Blood Venous blood specimen / Unknown Venipuncture / Unknown 09/24/2024 5:45 AM EDT 09/24/2024 9:53 AM EDT us Prince Le MD LAB BLOOD ORDERABLES Final Resul t [facility] [address] [place] [address], [place] [phone] * (ABNORMAL) Comprehensive metabolic panel (09/24/2024 5:45 [...] LAB CHEMISTRY METHOD 09/24/2024 12:42 PM T [facility] Calcium 8.9 8.5 - [...] t [facility] [address] [place] [address], * (ABNORMAL) Complete blood count (09/24/2024 5:45 [...] MD LAB BLOOD ORDERABLES [facility] [address] [place] [address], documented in this encounter Visit Diagnoses Diagnosis Type 2 diabetes mellitus without complications (CMS/HCC V24, CMS/HCC V28) documented in this encounter Care Teams Peeler Operator Relationship Specialty Start Date End Date Tram Álvarez MD 2 [facility] , [address] Physician Associ D/B/A: [facility] JAS Duque PCP - General Internal Medicine 03/30/18 documented as of this encounter
--- OUTSIDE RECORDS SUMMARY | 2025-03-24 09:50 | XMS_ITS | Encounter Summary ---
Author Organization [facility] Address [address] [place] [address] Care Team Providers Care Sole Scraper Name Role Phone Tram Álvarez MD Primary Care Provider [phone] Encounter Details Date Type Department Care Team (Late st Contact Info) Description 11/11/2024 Lab Requisition [facility] - Main Lab [address] [place] [address] Preeti Lujan MD [address] [phone] Chronic kidney disease, unspecified Social History Tobacco [...] LAB CHEMISTRY METHOD 11/11/2024 11:32 AM EDT [facility] Potassium 4.2 3.5 - 5.5 mmol/L LAB CHEMISTRY METHOD 11/11/2024 11:32 AM EDT [facility] Chloride 110 96 - 110 mmol/L LAB CHEMISTRY METHOD 11/11/2024 11:32 AM [facility] CO2 22 21 - 32 mmol/L LAB CHEMISTRY METHOD 11/11/2024 11:32 AM [facility] Anion Gap 9 3 - 11 LAB CHEMISTRY METHOD 11/11/2024 11:32 AM [facility] Glucose 177(H) 70 - 100 mg/dL LAB CHEMISTRY METHOD 11/11/2024 11:32 AM [facility] BUN 20 5 - 25 mg/dL LAB CHEMISTRY METHOD 11/11/2024 11:32 AM [facility] Creatinine 0.67(L) 0.70 - 1.30 mg/dL LAB CHEMISTRY METHOD 11/11/2024 11:32 AM [facility] eGFR 101 >=60 mL/min/1. 73m2 LAB CHEMISTRY METHOD 11/11/2024 11:32 AM [facility] Comment:Calculation based on the Chronic Kidney Disease Epidemiology Collaboration (CKD-EPI) equation refit without adjustment for race. BUN/Creatinine Ratio 29.9 LAB CHEMISTRY METHOD 11/11/2024 11:32 AM [facility] Calcium 8.7 8.5 - 10.5 mg/dL LAB CHEMISTRY METHOD 11/11/2024 11:32 AM [facility] Blood Venous blood specimen / Unknown Venipuncture / Unknown 11/11/2024 6:41 AM EDT 11/11/2024 9:11 AM EDT us Preeti Lujan MD LAB BLOOD ORDERABLES Fin al Result [facility] [address] [place] [address], * (ABNORMAL) Complete blood count (11/11/2024 6:41 AM EDT) WBC 8.1 4.8 - 10.8 K/mcL LAB HEMETOLOGY METHOD 11/11/2024 10:28 AM [facility] RBC 3.80(L) 4.50 - 5.50 M/mcL LAB HEMETOLOGY METHOD 11/11/2024 10:28 AM [facility] Hemoglobin 11.5(L) 13.5 - 17.5 g/dL LAB HEMETOLOGY METHOD 11/11/2024 10:28 AM [facility] Hematocrit 35.8(L) 42.0 - 54.0 % LAB HEMETOLOGY METHOD 11/11/2024 10:28 AM [facility] MCV 93.2 79.0 - 98.0 FL LAB HEMETOLOGY METHOD 11/11/2024 10:28 AM [facility] MCH 29.9 27.0 - 32.0 pcg LAB HEMETOLOGY METHOD 11/11/2024 10:28 AM [facility] MCHC 32.1 32.0 - 37.0 g/dL LAB HEMETOLOGY METHOD 11/11/2024 10:28 AM [facility] RDW 16.4(H) 11.0 - 15.0 % LAB HEMETOLOGY METHOD 11/11/2024 10:28 AM [facility] Platelets 314 130 - 400 K/mcL LAB HEMETOLOGY METHOD 11/11/2024 10:28 AM [facility] MPV 12.3(H) 7.0 - 11.0 FL LAB HEMETOLOGY METHOD 11/11/2024 10:28 AM [facility] NRBC 0.0 <1.0 % LAB HEMETOLOGY METHOD 11/11/2024 10:28 AM [facility] NRBC Absolute 0.00 <0.10 K/mcL LAB HEMETOLOGY METHOD 11/11/2024 10:28 AM EDT [facility] Blood Venous blood specimen / Unknown Venipuncture / Unknown 11/11/2024 6:41 AM EDT 11/11/2024 9:11 AM EDT us Preeti Lujan MD LAB BLOOD ORDERABLES Fin al Result [facility] [address] [place] [address], documented in this encounter Visit Diagnoses Diagnosis Chronic kidney disease, unspecified documented in this encounter Care Teams Sole Scraper Relationship Specialty Start Date End Date Tram Álvarez MD 2 [facility] , [address] Physician Associ D/B/A: [facility] [place], [place] PCP - General Internal Medicine 03/30/18 documented as of this encounter
--- OUTSIDE RECORDS SUMMARY | 2025-03-24 09:50 | XMS_ITS | Encounter Summary ---
Author Organization [facility] Address [address] [place] [address] Care Team Providers Care Jewel Bearing Polisher Name Role Phone Tram Álvarez MD Primary Care Provider [phone] Encounter Details Date Type Department Care Team (Late st Contact Info) Description 11/11/2024 Lab Requisition [facility] - Main Lab [address] [place] [address] Shonda Brenner MD [address] [place] [id number] Unspecified abdominal pain Social History Tobacco Use [...] reflex microscopic (11/11/2024 12:00 AM EDT) Specific Leopold Urine 1.014 1.003 - 1.030 LAB URINALYSIS - AUTOMATED METHOD 11/11/2024 11:33 AM EDT [facility] pH, Urine 7.0 5.0 - 8.0 pH LAB URINALYSIS - AUTOMATED METHOD 11/11/2024 11:33 AM [facility] Leukocytes, Urine Large(A) Negative LAB URINALYSIS - AUTOMATED METHOD 11/11/2024 11:33 AM [facility] Nitrite, Urine Negative Negative LAB URINALYSIS - AUTOMATED METHOD 11/11/2024 11:33 AM [facility] Protein, Urine Trace <=Trace mg/dL LAB URINALYSIS - AUTOMATED METHOD 11/11/2024 11:33 AM [facility] Glucose, Urine Negative Negative mg/dL LAB URINALYSIS - AUTOMATED METHOD 11/11/2024 11:33 AM [facility] Ketones, Urine Negative Negative mg/dL LAB URINALYSIS - AUTOMATED METHOD 11/11/2024 11:33 AM [facility] Urobilinogen, Urine 0.2 0.2 - 1.0 mg/dL LAB URINALYSIS - AUTOMATED METHOD 11/11/2024 11:33 AM [facility] Bilirubin, Urine Negative Negative LAB URINALYSIS - AUTOMATED METHOD 11/11/2024 11:33 AM [facility] Blood, Urine Negative Negative LAB URINALYSIS - AUTOMATED METHOD 11/11/2024 11:33 AM [facility] RBC, Urine 3.0 0 - 4 /HPF LAB URINALYSIS - AUTOMATED METHOD 11/11/2024 11:33 AM [facility] WBC, Urine 57.5(H) 0 - 4 /HPF LAB URINALYSIS - AUTOMATED METHOD 11/11/2024 11:33 AM [facility] Squamous Epithelial, Urine >100(H) 0 - 60 /LPF LAB URINALYSIS - AUTOMATED METHOD 11/11/2024 11:33 AM [facility] Bacteria, Urine Negative Negative /HPF LAB URINALYSIS - AUTOMATED METHOD 11/11/2024 11:33 AM EDT [facility] Hyaline Casts, Urine 2.0 0 - 3 /LPF LAB URINALYSIS - AUTOMATED METHOD 11/11/2024 11:33 AM EDT [facility] Urine Urine specimen obtained by clean catch procedure / Unknown Non-blood Collection / Unknown 11/11/2024 11/11/2024 9:44 AM EDT us Shonda Brenner MD LAB URINE ORDERABLES Final Resu lt Performing Organization Address [facility]/ZIP Co de Phone Number [facility] [address] [place] [address], [place] [phone] * Culture urine (11/11/2024 12:00 AM EDT) Culture, Urine <10,000 CFU/mL gram negative bacilli, insignificant count, no further workup 11/12/2024 8:43 AM EDT [facility] Urine Urine specimen obtained by clean catch procedure / Unknown Non-blood Collection / Unknown 11/11/2024 11/11/2024 9:44 AM EDT us Shonda Brenner MD LAB MICROBIOLOGY - GENERAL ORDE RABLES Final Result Performing Organization Address [facility]/ZIP Co de Phone Number [facility] [address] [place] [address], [place] [phone] documented in this encounter Visit Diagnoses Diagnosis Unspecified abdominal pain documented in this encounter Care Teams Jewel Bearing Polisher Relationship Specialty Start Date End Date Tram Álvarez MD 2 [facility] [address] Physician Associ D/B/A: [facility] JAS Duque PCP - General Internal Medicine 03/30/18 documented as of this encounter
--- OUTSIDE RECORDS SUMMARY | 2025-03-24 09:50 | XMS_ITS | Encounter Summary ---
Author Organization [facility] Address [address] [place] [address] Care Team Providers Care Buckle Attaching Machine Operator Name Role Phone Tram Álvarez MD Primary Care Provider [phone] Encounter Details Date Type Department Care Team (Late st Contact Info) Description 05/21/[address] [facility] - Main Lab [address] [place] [address] Prince Le MD 38 [facility] [address] [place], [address] Essential (primary) hypertension Social History Tobacco [...] mmol/L LAB CHEMISTRY METHOD 05/24/2024 9:02 AM [facility] CO2 28 21 - 32 mmol/L LAB CHEMISTRY METHOD 05/24/2024 9:02 AM [facility] Anion Gap 5 3 - 11 LAB CHEMISTRY METHOD 05/24/2024 9:02 AM [facility] Glucose 129(H) 70 - 100 mg/dL LAB CHEMISTRY METHOD 05/24/2024 9:02 AM [facility] BUN 38(H) 5 - 25 mg/dL LAB CHEMISTRY METHOD 05/24/2024 9:02 AM [facility] Creatinine 1.33(H) 0.70 - 1.30 mg/dL LAB CHEMISTRY METHOD 05/24/2024 9:02 AM [facility] eGFR 58(L) >=60 mL/min/1. 73m2 LAB CHEMISTRY METHOD 05/24/2024 9:02 AM [facility] Comment:Calculation based on the Chronic Kidney Disease Epidemiology Collaboration (CKD-EPI) equation refit without adjustment for race. BUN/Creatinine Ratio 28.6 LAB CHEMISTRY METHOD 05/24/2024 9:02 AM [facility] Calcium 9.2 8.5 - 10.5 mg/dL LAB CHEMISTRY METHOD 05/24/2024 9:02 AM [facility] Blood Venous blood specimen / Unknown Venipuncture / Unknown 05/24/2024 6:00 AM EST 05/24/2024 7:45 AM EST us Prince Le MD LAB BLOOD ORDERABLES Final Resul t [facility] [address] [place] [address], * (ABNORMAL) Complete blood count (05/24/2024 6:00 AM EST) WBC 9.3 4.8 - 10.8 K/mcL LAB HEMETOLOGY METHOD 05/24/2024 9:03 AM [facility] RBC 4.90 4.50 - 5.50 M/mcL LAB HEMETOLOGY METHOD 05/24/2024 9:03 AM [facility] Hemoglobin 13.6 13.5 - 17.5 g/dL LAB HEMETOLOGY METHOD 05/24/2024 9:03 AM [facility] Hematocrit 43.1 42.0 - 54.0 % LAB HEMETOLOGY METHOD 05/24/2024 9:03 AM [facility] MCV 87.4 79.0 - 98.0 FL LAB HEMETOLOGY METHOD 05/24/2024 9:03 AM [facility] MCH 27.6 27.0 - 32.0 pcg LAB HEMETOLOGY METHOD 05/24/2024 9:03 AM [facility] MCHC 31.6(L) 32.0 - 37.0 g/dL LAB HEMETOLOGY METHOD 05/24/2024 9:03 AM [facility] RDW 16.4(H) 11.0 - 15.0 % LAB HEMETOLOGY METHOD 05/24/2024 9:03 AM [facility] Platelets 249 130 - 400 K/mcL LAB HEMETOLOGY METHOD 05/24/2024 9:03 AM [facility] MPV 13.1(H) 7.0 - 11.0 FL LAB HEMETOLOGY METHOD 05/24/2024 9:03 AM [facility] NRBC 0.0 <1.0 % LAB HEMETOLOGY METHOD 05/24/2024 9:03 AM [facility] NRBC Absolute 0.00 <0.10 K/mcL LAB HEMETOLOGY METHOD 05/24/2024 9:03 AM [facility] Blood Venous blood specimen / Unknown Venipuncture / Unknown 05/24/2024 6:00 AM EST 05/24/2024 7:45 AM EST us Prince Le MD LAB BLOOD ORDERABLES Final Resul t [facility] [address] [place] [address], [place] [phone] documented in this encounter Visit Diagnoses Diagnosis Essential (primary) hypertension Unspecified essential hypertension documented in this encounter Care Teams Buckle Attaching Machine Operator Relationship Specialty Start Date End Date Tram Álvarez MD 2 [facility] , [address] [place] [address] Physician Associ D/B/A: [facility] JAS Duque PCP - General Internal Medicine 03/30/18 documented as of this encounter
--- OUTSIDE RECORDS SUMMARY | 2025-03-24 09:50 | XMS_ITS | Encounter Summary ---
Author Organization [facility] Address [address] [place] [address] Care Team Providers Care Hob Mill Operator Name Role Phone Tram Álvarez MD Primary Care Provider [phone] Encounter Details Date Type Department Care Team (Late st Contact Info) Description 11/05/2024 Lab Requisition [facility] - Main Lab [address] [facility] [place] [address] Preeti Lujan MD [address] [phone] Pneumonia, unspecified organism Social History Tobacco Use [...] mmol/L LAB CHEMISTRY METHOD 11/05/2024 11:23 AM [facility] Anion Gap 11 3 - 11 LAB CHEMISTRY METHOD 11/05/2024 11:23 AM [facility] Glucose 121(H) 70 - 100 mg/dL LAB CHEMISTRY METHOD 11/05/2024 11:23 AM [facility] BUN 22 5 - 25 mg/dL LAB CHEMISTRY METHOD 11/05/2024 11:23 AM [facility] Creatinine 0.58(L) 0.70 - 1.30 mg/dL LAB CHEMISTRY METHOD 11/05/2024 11:23 AM [facility] eGFR 106 >=60 mL/min/1. 73m2 LAB CHEMISTRY METHOD 11/05/2024 11:23 AM [facility] Comment:Calculation based on the Chronic Kidney Disease Epidemiology Collaboration (CKD-EPI) equation refit without adjustment for race. BUN/Creatinine Ratio 37.9 LAB CHEMISTRY METHOD 11/05/2024 11:23 AM [facility] Calcium 9.3 8.5 - 10.5 mg/dL LAB CHEMISTRY METHOD 11/05/2024 11:23 AM [facility] Blood Venous blood specimen / Unknown Venipuncture / Unknown 11/05/2024 8:07 AM EDT 11/05/2024 9:58 AM EDT us Preeti Lujan MD LAB BLOOD ORDERABLES Fin al Result [facility] [address] [place] [address], documented in this encounter Visit Diagnoses Diagnosis Pneumonia, unspecified organism documented in this encounter Care Teams Hob Mill Operator Relationship Specialty Start Date End Date Tram Álvarez MD 2 [facility] , [address] Physician Associ D/B/A: [facility] JAS Duque PCP - General Internal Medicine 03/30/18 documented as of this encounter
--- OUTSIDE RECORDS SUMMARY | 2025-03-24 09:50 | XMS_ITS | Encounter Summary ---
Author Organization [facility] Address [address] [place] [address] Care Team Providers Care Power Generation Technician Name Role Phone Tram Álvarez MD Primary Care Provider [phone] Encounter Details Date Type Department Care Team (Late st Contact Info) Description 09/16/2024 Lab Requisition [facility] - Main Lab [address] [place] [address] Prince Le MD 38 [facility] [address] [place], [address] Type 2 diabetes mellitus without complications [...] mg/dL LAB CHEMISTRY METHOD 09/17/2024 11:32 AM [facility] Blood Venous blood specimen / Unknown Venipuncture / Unknown 09/17/2024 8:06 AM EDT 09/17/2024 10:22 AM EDT us Prince Le MD LAB BLOOD ORDERABLES Final Resul t [facility] [address] [place] [address], [place] [phone] * (ABNORMAL) Comprehensive metabolic panel (09/17/2024 8:06 AM EDT) Sodium 139 133 - 145 mmol/L LAB CHEMISTRY METHOD 09/17/2024 11:27 AM [facility] Potassium 4.6 3.5 - 5.5 mmol/L LAB CHEMISTRY METHOD 09/17/2024 11:27 AM [facility] Chloride 103 96 - 110 mmol/L LAB CHEMISTRY METHOD 09/17/2024 11:27 AM [facility] CO2 30 21 - 32 mmol/L LAB CHEMISTRY METHOD 09/17/2024 11:27 AM [facility] Anion Gap 6 3 - 11 LAB CHEMISTRY METHOD 09/17/2024 11:27 AM [facility] Glucose 93 70 - 100 mg/dL LAB CHEMISTRY METHOD 09/17/2024 11:27 AM [facility] BUN 21 5 - 25 mg/dL LAB CHEMISTRY METHOD 09/17/2024 11:27 AM [facility] Creatinine 0.97 0.70 - 1.30 mg/dL LAB CHEMISTRY METHOD 09/17/2024 11:27 AM [facility] eGFR 85 >=60 mL/min/1. 73m2 LAB CHEMISTRY METHOD 09/17/2024 11:27 AM [facility] Comment:Calculation based on the Chronic Kidney Disease Epidemiology Collaboration (CKD-EPI) equation refit without adjustment for race. BUN/Creatinine Ratio 21.6 LAB CHEMISTRY METHOD 09/17/2024 11:27 AM [facility] Calcium 9.0 8.5 - 10.5 mg/dL LAB CHEMISTRY METHOD 09/17/2024 11:27 AM [facility] AST (SGOT) 20 10 - 42 unit/L LAB CHEMISTRY METHOD 09/17/2024 11:27 AM [facility] ALT (SGPT) 19 10 - 60 unit/L LAB CHEMISTRY METHOD 09/17/2024 11:27 AM [facility] Alkaline Phosphatase 67 42 - 121 unit/L LAB CHEMISTRY METHOD 09/17/2024 11:27 AM [facility] Total Protein 6.1 6.0 - 8.0 g/dL LAB CHEMISTRY METHOD 09/17/2024 11:27 AM [facility] Albumin 2.8(L) 3.2 - 5.0 g/dL LAB CHEMISTRY METHOD 09/17/2024 11:27 AM [facility] Total Bilirubin 0.4 0.0 - 1.4 mg/dL LAB CHEMISTRY METHOD 09/17/2024 11:27 AM [facility] Blood Venous blood specimen / Unknown Venipuncture / Unknown 09/17/2024 8:06 AM EDT 09/17/2024 10:22 AM EDT us Prince Le MD LAB BLOOD ORDERABLES Final Resul t [facility] [address] [place] [address], * (ABNORMAL) Complete blood count (09/17/2024 8:06 AM EDT) WBC 9.2 4.8 - 10.8 K/mcL LAB HEMETOLOGY METHOD 09/17/2024 10:35 AM [facility] RBC 3.80(L) 4.50 - 5.50 M/mcL LAB HEMETOLOGY METHOD 09/17/2024 10:35 AM [facility] Hemoglobin 11.3(L) 13.5 - 17.5 g/dL LAB HEMETOLOGY METHOD 09/17/2024 10:35 AM [facility] Hematocrit 35.1(L) 42.0 - 54.0 % LAB HEMETOLOGY METHOD 09/17/2024 10:35 AM [facility] MCV 93.6 79.0 - 98.0 FL LAB HEMETOLOGY METHOD 09/17/2024 10:35 AM [facility] MCH 30.1 27.0 - 32.0 pcg LAB HEMETOLOGY METHOD 09/17/2024 10:35 AM [facility] MCHC 32.2 32.0 - 37.0 g/dL LAB HEMETOLOGY METHOD 09/17/2024 10:35 AM [facility] RDW 17.5(H) 11.0 - 15.0 % LAB HEMETOLOGY METHOD 09/17/2024 10:35 AM [facility] Platelets 352 130 - 400 K/mcL LAB HEMETOLOGY METHOD 09/17/2024 10:35 AM [facility] MPV 11.5(H) 7.0 - 11.0 FL LAB HEMETOLOGY METHOD 09/17/2024 10:35 AM [facility] NRBC 0.0 <1.0 % LAB HEMETOLOGY METHOD 09/17/2024 10:35 AM [facility] NRBC Absolute 0.00 <0.10 K/mcL LAB HEMETOLOGY METHOD 09/17/2024 10:35 AM [facility] Blood Venous blood specimen / Unknown Venipuncture / Unknown 09/17/2024 8:06 AM EDT 09/17/2024 10:22 AM EDT us Prince Le MD LAB BLOOD ORDERABLES Final Resul t [facility] [address] [place] [address], documented in this encounter Visit Diagnoses Diagnosis Type 2 diabetes mellitus without complications (CMS/HCC V24, CMS/HCC V28) documented in this encounter Care Teams Power Generation Technician Relationship Specialty Start Date End Date Tram Álvarez MD 2 [facility] , [address] Physician Associ D/B/A: [facility] [place], [place] PCP - General Internal Medicine 03/30/18 documented as of this encounter
--- OUTSIDE RECORDS SUMMARY | 2025-03-24 09:50 | XMS_ITS | Encounter Summary ---
Author Organization [facility] Address [address] [place] [address] Care Team Providers Care Electronic Gluer Name Role Phone Tram Álvarez MD Primary Care Provider [phone] Encounter Details Date Type Department Care Team (Late st Contact Info) Description 10/22/2024 Lab Requisition [facility] - Main Lab [address] [place] [address] Preeti Lujan MD [address] [phone] Type 2 diabetes mellitus without complications (CMS/HCC [...] 2 diabetes mellitus without complications (CMS/HCC V24, CMS/[facility] V28) documented in this encounter Results [...] LAB BLOOD ORDERABLES Fin al Result [facility] [address] [place] [address], documented in this encounter Visit Diagnoses Diagnosis Type 2 diabetes mellitus without complications (CMS/HCC V24, CMS/HCC V28) documented in this encounter Care Teams Electronic Gluer Relationship Specialty Start Date End Date Tram Álvarez MD 2 [facility] , [address] Physician Associ D/B/A: [facility] JAS Duque PCP - General Internal Medicine 03/30/18 documented as of this encounter
--- OUTSIDE RECORDS SUMMARY | 2025-03-24 09:50 | XMS_ITS | Encounter Summary ---
Author Organization [facility] Address [address] [place] [address] Care Team Providers Care Lead Printer Name Role Phone Tram Álvarez MD Primary Care Provider [phone] Encounter Details Date Type Department Care Team (Late st Contact Info) Description 11/18/2024 Lab Requisition [facility] - Main Lab 299 [facility] [place] [place] [address] Preeti Lujan MD [address] [id number] Chronic kidney disease, stage 3 unspecified (CMS/HCC [...] CHEMISTRY METHOD 11/18/2024 10:12 AM EDT [facility] ([facility]) [facility] LAB Potassium 4.6 3.5 - 5.5 mmol/L LAB CHEMISTRY METHOD 11/18/2024 10:12 AM [facility] LAB Chloride 112(H) 96 - 110 mmol/L LAB CHEMISTRY METHOD 11/18/2024 10:12 AM [facility] LAB CO2 25 21 - 32 mmol/L LAB CHEMISTRY METHOD 11/18/2024 10:12 AM [facility] LAB Anion Gap 6 3 - 11 LAB CHEMISTRY METHOD 11/18/2024 10:12 AM [facility] LAB Glucose 105(H) 70 - 100 mg/dL LAB CHEMISTRY METHOD 11/18/2024 10:12 AM [facility] LAB BUN 26(H) 5 - 25 mg/dL LAB CHEMISTRY METHOD 11/18/2024 10:12 AM [facility] LAB Creatinine 0.63(L) 0.70 - 1.30 mg/dL LAB CHEMISTRY METHOD 11/18/2024 10:12 AM [facility] LAB eGFR 103 >=60 mL/min/1. 73m2 LAB CHEMISTRY METHOD 11/18/2024 10:12 AM [facility] LAB Comment:Calculation based on the Chronic Kidney Disease Epidemiology Collaboration (CKD-EPI) equation refit without adjustment for race. BUN/Creatinine Ratio 41.3 LAB CHEMISTRY METHOD 11/18/2024 10:12 AM [facility] LAB Calcium 8.8 8.5 - 10.5 mg/dL LAB CHEMISTRY METHOD 11/18/2024 10:12 AM [facility] LAB Blood Venous blood specimen / Unknown Venipuncture / Unknown 11/18/2024 6:05 AM EDT 11/18/2024 9:23 AM EDT us Preeti Lujan MD LAB BLOOD ORDERABLES Fin al Result [facility] LAB [address] [place] [address], documented in this encounter Visit Diagnoses Diagnosis Chronic kidney disease, stage 3 unspecified (CMS/[facility] V24, [facility] V28) Spinal stenosis, lumbar region without neurogenic claudication documented in this encounter Care Teams Lead Printer Relationship Specialty Start Date End Date Tram Álvarez MD 2 [facility] , [address] [place] [address] Physician Associ D/B/A: [facility] JAS Duque PCP - General Internal Medicine 03/30/18 documented as of this encounter
--- OUTSIDE RECORDS SUMMARY | 2025-03-24 09:50 | XMS_ITS | Encounter Summary ---
Author Organization [facility] Address [address] [place] [address] Care Team Providers Care Metal Furrer Name Role Phone Tram Álvarez MD Primary Care Provider [phone] Encounter Details Date Type Department Care Team (Late st Contact Info) Description 10/21/[address] [facility] - Main Lab 299 [facility] [place] [address] Prince Le MD 38 [facility] [address] [place], [address] Type 2 diabetes mellitus without complications [...] V28) documented in this encounter Care Teams Metal Furrer Relationship Specialty Start Date End Date Tram Álvarez MD [address] [place] [address] , [address] [facility] Physician Associ D/B/A: [facility] [place], [place] PCP - General Internal Medicine 03/30/18 documented as of this encounter
--- OUTSIDE RECORDS SUMMARY | 2025-03-24 09:50 | XMS_ITS | Encounter Summary ---
Author Organization [facility] Address [address] [place] [address] Care Team Providers Care Hospital Secretary Name Role Phone Tram Álvarez MD Primary Care Provider [phone] Encounter Details Date Type Department Care Team (Late st Contact Info) Description 05/28/2024 Lab Requisition [facility] - Main Lab [address] [place] [address] Prince Le MD 38 [facility] 204 [place], [address] Essential (primary) hypertension Social History Tobacco [...] LAB CHEMISTRY METHOD 05/31/2024 11:37 AM EST [facility] LAB Potassium 4.5 3.5 - 5.5 mmol/L LAB CHEMISTRY METHOD 05/31/2024 11:37 AM EST [facility] LAB Chloride 108 96 - 110 mmol/L LAB CHEMISTRY METHOD 05/31/2024 11:37 AM [facility] LAB CO2 28 21 - 32 mmol/L LAB CHEMISTRY METHOD 05/31/2024 11:37 AM [facility] LAB Anion Gap 6 3 - 11 LAB CHEMISTRY METHOD 05/31/2024 11:37 AM [facility] LAB Glucose 104(H) 70 - 100 mg/dL LAB CHEMISTRY METHOD 05/31/2024 11:37 AM [facility] BUN 25 5 - 25 mg/dL LAB CHEMISTRY METHOD 05/31/2024 11:37 AM [facility] LAB Creatinine 1.15 0.70 - 1.30 mg/dL LAB CHEMISTRY METHOD 05/31/2024 11:37 AM [facility] LAB eGFR 69 >=60 mL/min/1. 73m2 LAB CHEMISTRY METHOD 05/31/2024 11:37 AM [facility] LAB Comment:Calculation based on the Chronic Kidney Disease Epidemiology Collaboration (CKD-EPI) equation refit without adjustment for race. BUN/Creatinine Ratio 21.7 LAB CHEMISTRY METHOD 05/31/2024 11:37 AM [facility] LAB Calcium 9.2 8.5 - 10.5 mg/dL LAB CHEMISTRY METHOD 05/31/2024 11:37 AM [facility] LAB Blood Venous blood specimen / Unknown Venipuncture / Unknown 05/31/2024 7:20 AM EST 05/31/2024 10:13 AM EST us Prince Le MD LAB BLOOD ORDERABLES Final Resul t [facility] [address] [place] [address], * (ABNORMAL) Complete blood count (05/31/2024 7:20 AM EST) WBC 8.8 4.8 - 10.8 K/mcL LAB HEMETOLOGY METHOD 05/31/2024 10:39 AM [facility] LAB RBC 5.10 4.50 - 5.50 M/mcL LAB HEMETOLOGY METHOD 05/31/2024 10:39 AM [facility] LAB Hemoglobin 14.2 13.5 - 17.5 g/dL LAB HEMETOLOGY METHOD 05/31/2024 10:39 AM [facility] LAB Hematocrit 44.7 42.0 - 54.0 % LAB HEMETOLOGY METHOD 05/31/2024 10:39 AM [facility] LAB MCV 87.0 79.0 - 98.0 FL LAB HEMETOLOGY METHOD 05/31/2024 10:39 AM [facility] MCH 27.6 27.0 - 32.0 pcg LAB HEMETOLOGY METHOD 05/31/2024 10:39 AM [facility] LAB MCHC 31.8(L) 32.0 - 37.0 g/dL LAB HEMETOLOGY METHOD 05/31/2024 10:39 AM [facility] LAB RDW 16.5(H) 11.0 - 15.0 % LAB HEMETOLOGY METHOD 05/31/2024 10:39 AM [facility] LAB Platelets 242 130 - 400 K/mcL LAB HEMETOLOGY METHOD 05/31/2024 10:39 AM [facility] LAB MPV 12.5(H) 7.0 - 11.0 FL LAB HEMETOLOGY METHOD 05/31/2024 10:39 AM [facility] NRBC 0.0 <1.0 % LAB HEMETOLOGY METHOD 05/31/2024 10:39 AM [facility] LAB NRBC Absolute 0.00 <0.10 K/mcL LAB HEMETOLOGY METHOD 05/31/2024 10:39 AM [facility] LAB Blood Venous blood specimen / Unknown Venipuncture / Unknown 05/31/2024 7:20 AM EST 05/31/2024 10:16 AM EST us Prince Le MD LAB BLOOD ORDERABLES Final Resul t [facility] [address] [place] [address], [place] [phone] documented in this encounter Visit Diagnoses Diagnosis Essential (primary) hypertension Unspecified essential hypertension documented in this encounter Care Teams Hospital Secretary Relationship Specialty Start Date End Date Tram Álvarez MD 2 [facility] , [address] [facility] Physician Associ D/B/A: [facility] [place], [place] PCP - General Internal Medicine 03/30/18 documented as of this encounter
--- OUTSIDE RECORDS SUMMARY | 2025-03-24 09:50 | XMS_ITS | Encounter Summary ---
Author Organization [facility] Address [address] [place] [address] Care Team Providers Care Scale Shooter Name Role Phone Tram Álvarez MD Primary Care Provider [phone] Encounter Details Date Type Department Care Team (Late st Contact Info) Description 07/29/2024 Lab Requisition [facility] - Main Lab [address] [place] [address] Prince Le MD 38 [facility] 204 [place], [address] Type 2 diabetes mellitus without complications [...] t [facility] [address] [place] [address], * (ABNORMAL) Comprehensive metabolic panel (07/30/2024 7:30 [...] t [facility] [address] [place] [address], * (ABNORMAL) Complete blood count (07/30/2024 7:30 [...] LAB BLOOD ORDERABLES Final Resul t [facility] [address] [place] [address], documented in this encounter Visit Diagnoses Diagnosis Type 2 diabetes mellitus without complications (CMS/HCC V24, CMS/HCC V28) documented in this encounter Care Teams Scale Shooter Relationship Specialty Start Date End Date Tram Álvarez MD 2 [facility] , [address] [facility] Physician Associ D/B/A: [facility] JAS Duque PCP - General Internal Medicine 03/30/18 documented as of this encounter
--- OUTSIDE RECORDS SUMMARY | 2025-03-24 09:50 | XMS_ITS | Encounter Summary ---
Author Organization [facility] Address [address] [place] [address] Care Team Providers Care Medical And Scientific Illustrator Name Role Phone Tram lÁvarez MD Primary Care Provider [phone] Encounter Details Date Type Department Care Team (Late st Contact Info) Description 11/09/2024 Lab Requisition [facility] - Main Lab 299 [facility] [place] [address] Prince Le MD 38 [facility] 204 [place], [address] Hyperlipidemia, unspecified Social History Tobacco Use [...] unspecified documented in this encounter Care Teams Medical And Scientific Illustrator Relationship Specialty Start Date End Date Tram Álvarez MD [address] [place] [address] , [address] [facility] Physician Associ D/B/A: [facility] [place], [place] PCP - General Internal Medicine 03/30/18 documented as of this encounter
--- OUTSIDE RECORDS SUMMARY | 2025-03-24 09:50 | XMS_ITS | Clinical Summary ---
Author Organization [facility] Address [address] [place] [address] Care Team Providers Care Product Builder Name Role Phone Tram Royal MD Primary [...] age to complete this topic Care Teams Product Builder Relationship Specialty Start Date End Date Tram Royal MD 2 [facility] , [address] [facility] Physician Associ D/B/A: [facility] [place] [address] PCP - General Internal Medicine 03/30/18
== END ==
LOC: HO.CARD 08:36
PROVIDERS: PCP Internal Medicine; Visit Provider Internal Medicine Cardiovascular Disease
DX: Z01.810 Encounter for preprocedural cardiovascular examination (principal)
CPT/HCPCS: 78452; 93017; A9500; J0280; J2785

== ENCOUNTER → 2025-03-24 08:41 | Outpatient (BNV) | payer OTHER, SELFPAY | PROVIDERS: PCP Internal Medicine | DX: I49.3 Ventricular premature depolarization (principal) | CPT/HCPCS: 78452; 93016; 93018 ==

== ENCOUNTER 2025-04-12 09:12 | Outpatient (AMB) | payer OTHER, SELFPAY ==
[2025-04-12 09:22] VITALS: BP 118/76; PULSE 85; O2SAT 94
--- NOTE | 2025-04-12 09:22 | HO.NEPHOV_ITS ---
Vital Signs 04/12/25 09:22 Height 5 ft 8 in BP 118/76 Blood Pressure Location Lt brachial Position Supine Pulse 85 Pulse Source Pulse Oximeter Pulse Oximetry (%) 94 Oxygen Delivery Method Room Air Intake Visit Reasons: CKD Ribbon Winder Required: No Accompanied by: EMT Allergies Penicillins (PENICILLINS) Allergy (Severe, Verified 04/12/25 09:26) RASH jay pepper Allergy (Intermediate, Verified 04/12/25 09:26) Rash pepper (genus Capsicum) Adverse Reaction (Intermediate, Verified 04/12/25 09:26) rashes Medication List - Last Reconciled 04/12/25 by Valente Izaguirre MD acetaminophen 650 mg PO Q4H PRN [adult diapers pull-ups As directed] aspirin 81 mg PO DAILY@0800 atorvastatin 20 mg PO DAILY@2000 [bed rail As directed] bisacodyl 10 mg HI DAILY PRN blood pressure monitor As directed Brace,wrist right hand wrist splint calcium carbonate 1,000 mg PO DAILY [chair lift As directed] cholecalciferol (vitamin D3) 50 mcg PO DAILY commode (bedside commode) As directed compr.stocking,knee,long,x-lrg As ymjpiffr-24-07 mmhg cyclobenzaprine 10 mg PO BID docusate sodium 100 mg PO TID fenofibrate nanocrystallized 145 mg PO DAILY@0800 flash glucose scanning reader ([employer] Tirso 14 Day [place]) As directed flash glucose sensor ([employer] Tirso 2 Sensor kit) As directed gabapentin 200 mg PO BID hospital bed As directed- full electric hydralazine 25 mg PO BID PRN latanoprost 0.005% 1 drp ophthalmic (eye) BEDTIME [leg director of parks and recreation As directed] lidocaine 5% 1 patch topical DAILY magnesium hydroxide 30 mL PO DAILY PRN melatonin 3 mg PO BEDTIME PRN metformin 500 mg PO BID naloxone 4 mg/actuation (Narcan) 4 mg intranasal Q3M PRN oxycodone 10 mg PO Q6H PRN 30 days pen needle, diabetic five times a day polyethylene glycol 3350 17 grams PO DAILY PRN sennosides (senna) 17.2 mg PO BEDTIME PRN Shower Chair As directed [sock aid As directed] sodium phosphates 19-7 gram/118 mL (Fleet Enema) 118 mL HI DAILY PRN walker As directed walker (Ultra-Light Rollator misc) with seat [wheelchair electric As directed] [wipes As directed] HPI Comments Details: Middle-aged man with a history of longstanding diabetes mellitus hypertension and has mild obesity. He is here for annual follow-up for CKD. He has had left knee surgery and currently has braces. He has been taking Celebrex 200 mg twice a day in addition to benazepril. Patient serum creatinine has been around 0.86. Recent creatinine was 1.12. He has no specific complaints today. No polyuria no polydipsia. 04/16/2024. Today was a tele health visit. He was seen by PCP yesterday. Has been referred to vascular surgery. Amlodipine has been discontinued. 04/12/2025. Here for annual follow-up. Carlos has mild CKD in a setting of longstanding diabetes mellitus and hyperten jose. He had acute kidney injury in October 2024 with a creatinine of 2.5. He had significant hypotension at this time. DAVINA has resolved. Current serum creatinine is less than 0.8 mg/dL. He has non nephrotic range proteinuria. He is here for further follow-up [facility] Medical History Osteoarthritis Depression Polyneuropathy GERD (gastroesophageal reflux disease) Acute cholecystitis due to biliary calculus Numbness and tingling in right hand Numbness and tingling in left hand Essential hypertension Diabetes mellitus Knee osteoarthritis Mild recurrent major depression Mixed hyperlipidemia Right shoulder pain Right knee pain Left knee pain CKD (chronic kidney disease), stage III Low back pain Multiple falls Syncope DAVINA (acute kidney injury) Obesity due to excess calories Lumbar spondylosis Proteinuria Arthritis Hypertriglyceridemia Hypertension Diabetic polyneuropathy associated with type 2 diabetes mellitus Type 2 diabetes mellitus with other diabetic kidney complication Lumbar stenosis Surgical History Hx of cervical spine surgery Hx of carpal tunnel repair History of cholecystectomy (09/19/23) History of surgery on lower extremity History of total left knee replacement (TKR) S/P evacuation of hematoma Hx of cataract surgery History of lumbar surgery Hx of eye surgery History of back surgery Family History Father Medical history unknown Mother Hypertension Maternal Grandmother Medical history unknown Social History Household Members: None Household Members Other:: self Housing: Assisted Living Facility Housing Other:: currently at [facility] Are you a primary career coordinator to a significant other at home: No Do you presently have visiting nurse or other home services: Yes Alcohol intake: former Comment: bed bound Patient Tobacco Use Status: Former Tobacco user Tobacco use type: Cigarette Years Smoked: 25 e-Cigarette/Vaping Use: Never Used Second Hand Smoke Exposure: No Advance Directives Date on File: 05/12/23 service: Yes Current occupational status: disabled Cognitive needs: Yes (walker) Hearing needs: No Vision needs: Yes (reading glasses) Physical Exam Vital Signs: Last Vital Signs Pulse 85 04/12/25 09:22 BP 118/76 04/12/25 09:22 Pulse Ox 94 04/12/25 09:22 Oxygen Delivery Method Room Air 04/12/25 09:22 Comfortable Currently in a stretcher Neck supple no JVD. Lungs entry equal no rales. Heart S1-S2 heard no gallop or rub. Abdomen soft nontender. Neuro alert awake oriented. No asterixis. Extremities no edema. Results Reviewed Nephrology Results: Hgb, (14.0-18.0) 11.4 g/dl L Δ 01/20/25 WBC, (4.8-10.8) 8.2 X10*3/uL 01/20/25 Plt Count, (160-400) 261 X10*3/uL 01/20/25 Sodium, (135-145) 142 mmol/L 01/20/25 Potassium, (3.3-5.1) 3.8 mmol/L 01/20/25 Chloride, (96-108) 113 mmol/L H 01/20/25 Carbon Dioxide, (22-29) 24 mmol/L 01/20/25 BUN, (9-16) 22 mg/dL H 01/20/25 Creatinine, (0.5-1.4) 0.59 mg/dL 01/20/25 Calcium, (8.4-10.2) 8.3 mg/dL L 01/20/25 Renal US 04/26/22 Assessment & Plan Assessment & Plan (1) Hyperlipidemia LDL goal <70: Code(s): E78.5 - Hyperlipidemia, unspecified Category: Medical Plan: Continue statins. Repeat lipid panel. LDL goal is less than 70. (2) Diabetes mellitus: Code(s): E11.9 - Type 2 diabetes mellitus without complications Category: Medical Qualifiers: Diabetes mellitus type: type 2 Diabetes mellitus buttermaker insulin use: with buttermaker use Diabetes mellitus complication status: with neurologic complications Diabetes mellitus complication detail: with polyneuropathy Qualified Code(s): E11.42 - Type 2 diabetes mellitus with diabetic polyneuropathy; Z79.4 - terminal clerk (current) use of insulin Plan: Continue insulin. A1c goal is equal or less than 7%. Follow-up with [facility] endocrinology. (3) Essential hypertension: Code(s): I10 - Essential (primary) hypertension Category: Medical Plan: Continue hydralazine and benazepril. Blood pressure goal is equal or less than 130/80. (4) Mild recurrent major depression: Code(s): F33.0 - Major depressive disorder, recurrent, mild Category: Medical Plan: In remission. (5) Lumbar stenosis: Code(s): M48.061 - Spinal stenosis, lumbar region without neurogenic claudication Category: Medical Qualifiers: Neurogenic claudication status: with neurogenic claudication Qualified Code(s): M48.062 - Spinal stenosis, lumbar region with neurogenic claudication Plan Middle-aged man with longstanding diabetes mellitus hypertension. DAVINA has resolved. He has mild CKD with non nephrotic range proteinuria. Blood pressure is well controlled. My recommendation would be to discontinue hydralazine Start losartan 25 mg once a day. Titrate dose of losartan based on blood pressure. Monitor renal function periodically. Maintain blood pressure less than 130/80 Continue to maintain A1c less than 7%. Continue to avoid nephrotoxic agents including NSAIDs Coding Level of Care Code Est Pt Level 4 (44921) Diagnoses Hyperlipidemia LDL goal <70 E78.5 Type 2 diabetes mellitus with diabetic polyneuropathy, with long-term current use of insulin E11.42; Z79.4 Diabetes mellitus type: type 2 Diabetes mellitus buttermaker insulin use: with buttermaker use Diabetes mellitus complication status: with neurologic complications Diabetes mellitus complication detail: with polyneuropathy Essential hypertension I10 Mild recurrent major depression F33.0 Spinal stenosis of lumbar region with neurogenic claudication M48.062 Neurogenic claudication status: with neurogenic claudication
--- OUTSIDE RECORDS SUMMARY | 2025-04-12 10:12 | XMS_ITS | Encounter Summary ---
Author Organization [facility] Address [address] [place] [address] Care Team Providers Care Ampoule Washing Machine Operator Name Role Phone Tram Álvarez MD Primary Care Provider [phone] Encounter Details Date Type Department Care Team (Late st Contact Info) Description 07/16/2024 Lab Requisition [facility] - Main Lab [address] [place] [address] Prince Le MD 38 [facility] [address] [place], [address] Type 2 diabetes mellitus without complications [...] mg/dL LAB CHEMISTRY METHOD 07/16/2024 12:50 PM [facility] Blood Venous blood specimen / Unknown Venipuncture / Unknown 07/16/2024 8:00 AM EST 07/16/2024 11:21 AM EST us Prince Le MD LAB BLOOD ORDERABLES Final Resul t [facility] [address] [place] [address], [place] [phone] * (ABNORMAL) Comprehensive metabolic panel (07/16/2024 8:00 AM EST) Sodium 137 133 - 145 mmol/L LAB CHEMISTRY METHOD 07/16/2024 1:13 PM [facility] Potassium 5.1 3.5 - 5.5 mmol/L LAB CHEMISTRY METHOD 07/16/2024 1:13 PM [facility] Chloride 103 96 - 110 mmol/L LAB CHEMISTRY METHOD 07/16/2024 1:13 PM [facility] CO2 27 21 - 32 mmol/L LAB CHEMISTRY METHOD 07/16/2024 1:13 PM [facility] Anion Gap 7 3 - 11 LAB CHEMISTRY METHOD 07/16/2024 1:13 PM [facility] Glucose 40(L) 70 - 100 mg/dL LAB CHEMISTRY METHOD 07/16/2024 1:13 PM [facility] BUN 35(H) 5 - 25 mg/dL LAB CHEMISTRY METHOD 07/16/2024 1:13 PM [facility] Creatinine 1.27 0.70 - 1.30 mg/dL LAB CHEMISTRY METHOD 07/16/2024 1:13 PM [facility] eGFR 62 >=60 mL/min/1. 73m2 LAB CHEMISTRY METHOD 07/16/2024 1:13 PM [facility] Comment:Calculation based on the Chronic Kidney Disease Epidemiology Collaboration (CKD-EPI) equation refit without adjustment for race. BUN/Creatinine Ratio 27.6 LAB CHEMISTRY METHOD 07/16/2024 1:13 PM [facility] Calcium 9.0 8.5 - 10.5 mg/dL LAB CHEMISTRY METHOD 07/16/2024 1:13 PM [facility] AST (SGOT) 18 10 - 42 unit/L LAB CHEMISTRY METHOD 07/16/2024 1:13 PM [facility] ALT (SGPT) 19 10 - 60 unit/L LAB CHEMISTRY METHOD 07/16/2024 1:13 PM [facility] Alkaline Phosphatase 62 42 - 121 unit/L LAB CHEMISTRY METHOD 07/16/2024 1:13 PM [facility] Total Protein 6.7 6.0 - 8.0 g/dL LAB CHEMISTRY METHOD 07/16/2024 1:13 PM [facility] Albumin 3.5 3.2 - 5.0 g/dL LAB CHEMISTRY METHOD 07/16/2024 1:13 PM [facility] Total Bilirubin 0.4 0.0 - 1.4 mg/dL LAB CHEMISTRY METHOD 07/16/2024 1:13 PM [facility] Blood Venous blood specimen / Unknown Venipuncture / Unknown 07/16/2024 8:00 AM EST 07/16/2024 11:21 AM EST us Prince Le MD LAB BLOOD ORDERABLES Final Resul t [facility] [address] [place] [address], * (ABNORMAL) Complete blood count (07/16/2024 8:00 AM EST) WBC 10.9(H) 4.8 - 10.8 K/mcL LAB HEMETOLOGY METHOD 07/16/2024 11:53 AM EST [facility] RBC 4.90 4.50 - 5.50 M/mcL LAB HEMETOLOGY METHOD 07/16/2024 11:53 AM [facility] Hemoglobin 13.4(L) 13.5 - 17.5 g/dL LAB HEMETOLOGY METHOD 07/16/2024 11:53 AM [facility] Hematocrit 41.6(L) 42.0 - 54.0 % LAB HEMETOLOGY METHOD 07/16/2024 11:53 AM [facility] MCV 85.1 79.0 - 98.0 FL LAB HEMETOLOGY METHOD 07/16/2024 11:53 AM [facility] MCH 27.4 27.0 - 32.0 pcg LAB HEMETOLOGY METHOD 07/16/2024 11:53 AM [facility] MCHC 32.2 32.0 - 37.0 g/dL LAB HEMETOLOGY METHOD 07/16/2024 11:53 AM [facility] RDW 18.3(H) 11.0 - 15.0 % LAB HEMETOLOGY METHOD 07/16/2024 11:53 AM [facility] Platelets 413(H) 130 - 400 K/mcL LAB HEMETOLOGY METHOD 07/16/2024 11:53 AM [facility] MPV 12.4(H) 7.0 - 11.0 FL LAB HEMETOLOGY METHOD 07/16/2024 11:53 AM [facility] NRBC 0.0 <1.0 % LAB HEMETOLOGY METHOD 07/16/2024 11:53 AM [facility] NRBC Absolute 0.00 <0.10 K/mcL LAB HEMETOLOGY METHOD 07/16/2024 11:53 AM [facility] Blood Venous blood specimen / Unknown Venipuncture / Unknown 07/16/2024 8:00 AM EST 07/16/2024 11:21 AM EST us Prince Le MD LAB BLOOD ORDERABLES Final Resul t [facility]) [facility] [address] [place] [address], documented in this encounter Visit Diagnoses Diagnosis Type 2 diabetes mellitus without complications (CMS/HCC V24, CMS/HCC V28) documented in this encounter Care Teams Ampoule Washing Machine Operator Relationship Specialty Start Date End Date Tram Álvarez MD 2 [facility] , [address] [facility] Physician Associ D/B/A: [facility] JAS Duque PCP - General Internal Medicine 03/30/18 documented as of this encounter
--- OUTSIDE RECORDS SUMMARY | 2025-04-12 10:12 | XMS_ITS | Encounter Summary ---
Author Organization [facility] Address [address] [place] [address] Care Team Providers Care Adult Secondary Education Instructor Name Role Phone Tram Álvarez MD Primary Care Provider [phone] Encounter Details Date Type Department Care Team (Late st Contact Info) Description 06/18/2024 Lab Requisition [facility] - Main Lab [address] [place] [address] Prince Le MD 38 [facility] [address] [place], [address] Nausea with vomiting, unspecified; Chronic kidney [...] LAB CHEMISTRY METHOD 06/18/2024 11:17 AM EST [facility] Potassium 4.6 3.5 - 5.5 mmol/L LAB CHEMISTRY METHOD 06/18/2024 11:17 AM [facility] Chloride 102 96 - 110 mmol/L LAB CHEMISTRY METHOD 06/18/2024 11:17 AM [facility] CO2 32 21 - 32 mmol/L LAB CHEMISTRY METHOD 06/18/2024 11:17 AM [facility] Anion Gap 8 3 - 11 LAB CHEMISTRY METHOD 06/18/2024 11:17 AM [facility] Glucose 72 70 - 100 mg/dL LAB CHEMISTRY METHOD 06/18/2024 11:17 AM [facility] BUN 35(H) 5 - 25 mg/dL LAB CHEMISTRY METHOD 06/18/2024 11:17 AM [facility] Creatinine 1.44(H) 0.70 - 1.30 mg/dL LAB CHEMISTRY METHOD 06/18/2024 11:17 AM [facility] LAB eGFR 53(L) >=60 mL/min/1. 73m2 LAB CHEMISTRY METHOD 06/18/2024 11:17 AM [facility] Comment:Calculation based on the Chronic Kidney Disease Epidemiology Collaboration (CKD-EPI) equation refit without adjustment for race. BUN/Creatinine Ratio 24.3 LAB CHEMISTRY METHOD 06/18/2024 11:17 AM [facility] Calcium 9.3 8.5 - 10.5 mg/dL LAB CHEMISTRY METHOD 06/18/2024 11:17 AM [facility] Blood Venous blood specimen / Unknown Venipuncture / Unknown 06/18/2024 6:44 AM EST 06/18/2024 9:17 AM EST us Prince Le MD LAB BLOOD ORDERABLES Final Resul t [facility] [address] [place] [address], [place] [phone] * (ABNORMAL) Complete blood count (06/18/2024 6:44 AM EST) WBC 8.4 4.8 - 10.8 K/[facility] LAB HEMETOLOGY METHOD 06/18/2024 10:46 AM [facility] RBC 5.10 4.50 - 5.50 M/[facility] LAB HEMETOLOGY METHOD 06/18/2024 10:46 AM [facility] Hemoglobin 14.2 13.5 - 17.5 g/dL LAB HEMETOLOGY METHOD 06/18/2024 10:46 AM [facility] LAB Hematocrit 43.5 42.0 - 54.0 % LAB HEMETOLOGY METHOD 06/18/2024 10:46 AM [facility] LAB MCV 86.1 79.0 - 98.0 FL LAB HEMETOLOGY METHOD 06/18/2024 10:46 AM [facility] MCH 28.1 27.0 - 32.0 pcg LAB HEMETOLOGY METHOD 06/18/2024 10:46 AM [facility] LAB MCHC 32.6 32.0 - 37.0 g/dL LAB HEMETOLOGY METHOD 06/18/2024 10:46 AM [facility] LAB RDW 17.2(H) 11.0 - 15.0 % LAB HEMETOLOGY METHOD 06/18/2024 10:46 AM [facility] LAB Platelets 248 130 - 400 K/[facility] LAB HEMETOLOGY METHOD 06/18/2024 10:46 AM [facility] MPV 12.7(H) 7.0 - 11.0 FL LAB HEMETOLOGY METHOD 06/18/2024 10:46 AM [facility] NRBC 0.0 <1.0 % LAB HEMETOLOGY METHOD 06/18/2024 10:46 AM [facility] LAB NRBC Absolute 0.00 <0.10 K/[facility] LAB HEMETOLOGY METHOD 06/18/2024 10:46 AM [facility] Blood Venous blood specimen / Unknown Venipuncture / Unknown 06/18/2024 6:44 AM EST 06/18/2024 9:17 AM EST us Prince Le MD LAB BLOOD ORDERABLES Final [facility]ul t [facility] [address] [place] [address], documented in this encounter Visit Diagnoses Diagnosis Nausea with vomiting, unspecified Chronic kidney disease, unspecified documented in this encounter Care Teams Adult Secondary Education Instructor Relationship Specialty Start Date End Date Tram Álvarez MD 2 [facility] , [address] Physician Associ D/B/A: [facility] JAS Duque PCP - General Internal Medicine 03/30/18 documented as of this encounter
--- OUTSIDE RECORDS SUMMARY | 2025-04-12 10:12 | XMS_ITS | Clinical Summary ---
Author Organization [facility] Facility Address [address] [place] [address] Care Team Providers Care Photography Intern Name Role Phone Tram Royal MD Primary Care Provider [phone] Allergies Active Allergy Reactions Criticality Noted Date [...] % PVNMA 04/28/2020 us [facility] [id number] LICITED RESULTS Final Result PVNMA from Last 3 Months or Most Recently Relevant to Health Maintenance Insurance [address] [place] [id number] Medicaid [place] [address] [place] [id number] Medicaid [place] Care Teams Photography Intern Relationship Specialty Start Date End Date Tram Royal MD [address] [place] PCP - General 07/17/20
--- OUTSIDE RECORDS SUMMARY | 2025-04-12 10:12 | XMS_ITS | Encounter Summary ---
Author Organization [facility] Address [address] [place] [address] Care Team Providers Care Dietetic Technician Registered Name Role Phone Tram Álvarez MD Primary Care Provider [phone] Encounter Details Date Type Department Care Team (Late st Contact Info) Description 07/22/2024 Lab Requisition [facility] - Main Lab [address] [place] [address] Prince Le MD 38 [facility] [address] [place], [address] Type 2 diabetes mellitus without complications [...] mg/dL LAB CHEMISTRY METHOD 07/23/2024 10:47 AM [facility] Blood Venous blood specimen / Unknown Venipuncture / Unknown 07/23/2024 6:52 AM EST 07/23/2024 9:26 AM EST us Prince Le MD LAB BLOOD ORDERABLES Final Resul t [facility] [address] [place] [address], * (ABNORMAL) Comprehensive metabolic panel (07/23/2024 6:52 AM EST) Sodium 137 133 - 145 mmol/L LAB CHEMISTRY METHOD 07/23/2024 10:47 AM [facility] Potassium 5.3 3.5 - 5.5 mmol/L LAB CHEMISTRY METHOD 07/23/2024 10:47 AM [facility] Chloride 102 96 - 110 mmol/L LAB CHEMISTRY METHOD 07/23/2024 10:47 AM [facility] CO2 28 21 - 32 mmol/L LAB CHEMISTRY METHOD 07/23/2024 10:47 AM [facility] Anion Gap 7 3 - 11 LAB CHEMISTRY METHOD 07/23/2024 10:47 AM [facility] Glucose 78 70 - 100 mg/dL LAB CHEMISTRY METHOD 07/23/2024 10:47 AM [facility] BUN 39(H) 5 - 25 mg/dL LAB CHEMISTRY METHOD 07/23/2024 10:47 AM [facility] Creatinine 1.58(H) 0.70 - 1.30 mg/dL LAB CHEMISTRY METHOD 07/23/2024 10:47 AM [facility] LAB eGFR 47(L) >=60 mL/min/1. 73m2 LAB CHEMISTRY METHOD 07/23/2024 10:47 AM [facility] Comment:Calculation based on the Chronic Kidney Disease Epidemiology Collaboration (CKD-EPI) equation refit without adjustment for race. BUN/Creatinine Ratio 24.7 LAB CHEMISTRY METHOD 07/23/2024 10:47 AM [facility] Calcium 9.5 8.5 - 10.5 mg/dL LAB CHEMISTRY METHOD 07/23/2024 10:47 AM [facility] AST (SGOT) 25 10 - 42 unit/L LAB CHEMISTRY METHOD 07/23/2024 10:47 AM [facility] ALT (SGPT) 26 10 - 60 unit/L LAB CHEMISTRY METHOD 07/23/2024 10:47 AM [facility] LAB Alkaline Phosphatase 68 42 - 121 unit/L LAB CHEMISTRY METHOD 07/23/2024 10:47 AM [facility] Total Protein 6.9 6.0 - 8.0 g/dL LAB CHEMISTRY METHOD 07/23/2024 10:47 AM [facility] Albumin 3.5 3.2 - 5.0 g/dL LAB CHEMISTRY METHOD 07/23/2024 10:47 AM [facility] Total Bilirubin 0.4 0.0 - 1.4 mg/dL LAB CHEMISTRY METHOD 07/23/2024 10:47 AM [facility] Blood Venous blood specimen / Unknown Venipuncture / Unknown 07/23/2024 6:52 AM EST 07/23/2024 9:26 AM EST us Prince Le MD LAB BLOOD ORDERABLES Final Resul t [facility] [address] [place] [address], * (ABNORMAL) Complete blood count (07/23/2024 6:52 AM EST) WBC 9.2 4.8 - 10.8 K/mcL LAB HEMETOLOGY METHOD 07/23/2024 10:13 AM EST [facility] RBC 4.90 4.50 - 5.50 M/mcL LAB HEMETOLOGY METHOD 07/23/2024 10:13 AM [facility] Hemoglobin 13.6 13.5 - 17.5 g/dL LAB HEMETOLOGY METHOD 07/23/2024 10:13 AM [facility] LAB Hematocrit 41.2(L) 42.0 - 54.0 % LAB HEMETOLOGY METHOD 07/23/2024 10:13 AM [facility] LAB MCV 83.7 79.0 - 98.0 FL LAB HEMETOLOGY METHOD 07/23/2024 10:13 AM [facility] LAB MCH 27.6 27.0 - 32.0 pcg LAB HEMETOLOGY METHOD 07/23/2024 10:13 AM [facility] LAB MCHC 33.0 32.0 - 37.0 g/dL LAB HEMETOLOGY METHOD 07/23/2024 10:13 AM [facility] LAB RDW 19.0(H) 11.0 - 15.0 % LAB HEMETOLOGY METHOD 07/23/2024 10:13 AM [facility] LAB Platelets 364 130 - 400 K/mcL LAB HEMETOLOGY METHOD 07/23/2024 10:13 AM [facility] LAB MPV 12.2(H) 7.0 - 11.0 FL LAB HEMETOLOGY METHOD 07/23/2024 10:13 AM [facility] LAB NRBC 0.0 <1.0 % LAB HEMETOLOGY METHOD 07/23/2024 10:13 AM [facility] LAB NRBC Absolute 0.00 <0.10 K/mcL LAB HEMETOLOGY METHOD 07/23/2024 10:13 AM [facility] LAB Blood Venous blood specimen / Unknown Venipuncture / Unknown 07/23/2024 6:52 AM EST 07/23/2024 9:26 AM EST us Prince Le MD LAB BLOOD ORDERABLES Final Resul t [facility] [address] [place] [address], documented in this encounter Visit Diagnoses Diagnosis Type 2 diabetes mellitus without complications (CMS/HCC V24, CMS/HCC V28) documented in this encounter Care Teams Dietetic Technician Registered Relationship Specialty Start Date End Date Tram Álvarez MD 2 [facility] , [address] [facility] Physician Associ D/B/A: [facility] [place], [place] PCP - General Internal Medicine 03/30/18 documented as of this encounter
--- OUTSIDE RECORDS SUMMARY | 2025-04-12 10:12 | XMS_ITS | Encounter Summary ---
Author Organization [facility] Address [address] [place] [address] Care Team Providers Care Nutrition Educator Name Role Phone Tram Álvarez MD Primary Care Provider [phone] Encounter Details Date Type Department Care Team (Late st Contact Info) Description 10/07/2024 Lab Requisition [facility] - Main Lab [address] [facility] [place] [address] Prince Le MD 38 [facility] [address] [place], [address] Type 2 diabetes mellitus without complications [...] V28) documented in this encounter Care Teams Nutrition Educator Relationship Specialty Start Date End Date Tram Álvarez MD [address] [place] [address] , [address] [facility] Physician Associ D/B/A: [facility] [place], [place] PCP - General Internal Medicine 03/30/18 documented as of this encounter
--- OUTSIDE RECORDS SUMMARY | 2025-04-12 10:12 | XMS_ITS | Encounter Summary ---
Author Organization [facility] Address [address] [place] [address] Care Team Providers Care Pickling Solution Maker Name Role Phone Tram Álvarez MD Primary Care Provider [phone] Encounter Details Date Type Department Care Team (Late st Contact Info) Description 10/07/2024 Lab Requisition [facility] - Main Lab [address] [place] [address] Prince Le MD 38 [facility] [address] [place], [address] Type 2 diabetes mellitus without complications [...] Island LAB HEMETOLOGY METHOD 10/07/2024 9:[address] [...] Resul t [facility] [address] [place] [address], [place] [phone] * (ABNORMAL) Basic metabolic panel (10/07/2024 5:18 [...] LAB CHEMISTRY METHOD 10/07/2024 10:16 AM T [facility] Calcium 8.9 8.5 - 10.5 mg/dL LAB CHEMISTRY METHOD 10/07/2024 10:16 AM EDT [facility] Blood Venous blood specimen / Unknown Venipuncture / Unknown 10/07/2024 5:18 AM EDT 10/07/2024 8:56 AM EDT us Prince Le MD LAB BLOOD ORDERABLES Final Resul t [facility] [address] [place] [address], [place] [phone] documented in this encounter Visit Diagnoses Diagnosis Type 2 diabetes mellitus without complications (CMS/HCC V24, CMS/HCC V28) documented in this encounter Care Teams Pickling Solution Maker Relationship Specialty Start Date End Date Tram Álvarez MD 2 [facility] , [address] [place] [address] Physician Associ D/B/A: [facility] [place] PCP - General Internal Medicine 03/30/18 documented as of this encounter
--- OUTSIDE RECORDS SUMMARY | 2025-04-12 10:12 | XMS_ITS | Encounter Summary ---
Author Organization [facility] Address [address] [place] [address] Care Team Providers Care Demographic Analyst Name Role Phone Tram Álvarez MD Primary Care Provider [phone] Encounter Details Date Type Department Care Team (Late st Contact Info) Description 08/26/2024 Lab Requisition [facility] - Main Lab 299 [facility] [place] [address] Prince Le MD 38 [facility] 204 [place], [address] Type 2 diabetes mellitus without complications [...] LAB CHEMISTRY METHOD 08/27/2024 9:27 AM [facility] Triglycerides 249(H) 0 - 150 mg/dL LAB CHEMISTRY METHOD 08/27/2024 9:27 AM [facility] HDL 30(L) >=40 mg/dL LAB CHEMISTRY METHOD 08/27/2024 9:27 AM [facility] LDL Calculated 16 0 - 100 mg/dL LAB CHEMISTRY METHOD 08/27/2024 9:27 AM [facility] VLDL Cholesterol Maikel 49.8 mg/dL LAB CHEMISTRY METHOD 08/27/2024 9:27 AM [facility] Non HDL Chol. (LDL+VLDL) 66 <145 mg/dL LAB CHEMISTRY METHOD 08/27/2024 9:27 AM [facility] Chol/HDL Ratio 3.2 0.0 - 4.4 LAB CHEMISTRY METHOD 08/27/2024 9:27 AM [facility] Blood Venous blood specimen / Unknown Venipuncture / Unknown 08/27/2024 6:34 AM EST 08/27/2024 8:52 AM EST us Prince Le MD LAB BLOOD ORDERABLES Final Resul t [facility] [address] [place] [address], * (ABNORMAL) C-reactive protein (08/27/2024 6:34 AM EST) C-Reactive Protein 1.47(H) <=0.50 mg/dL LAB CHEMISTRY METHOD 08/27/2024 9:27 AM [facility] Blood Venous blood specimen / Unknown Venipuncture / Unknown 08/27/2024 6:34 AM EST 08/27/2024 8:52 AM EST us Prince Le MD LAB BLOOD ORDERABLES Final Resul t [facility] [address] [place] [address], [place] [phone] * (ABNORMAL) Comprehensive metabolic panel (08/27/2024 6:34 AM EST) Sodium 139 133 - 145 mmol/L LAB CHEMISTRY METHOD 08/27/2024 9:27 AM [facility] Potassium 4.6 3.5 - 5.5 mmol/L LAB CHEMISTRY METHOD 08/27/2024 9:27 AM [facility] Chloride 105 96 - 110 mmol/L LAB CHEMISTRY METHOD 08/27/2024 9:27 AM [facility] CO2 31 21 - 32 mmol/L LAB CHEMISTRY METHOD 08/27/2024 9:27 AM [facility] Anion Gap 3 3 - 11 LAB CHEMISTRY METHOD 08/27/2024 9:27 AM [facility] Glucose 112(H) 70 - 100 mg/dL LAB CHEMISTRY METHOD 08/27/2024 9:27 AM [facility] BUN 19 5 - 25 mg/dL LAB CHEMISTRY METHOD 08/27/2024 9:27 AM [facility] Creatinine 0.71 0.70 - 1.30 mg/dL LAB CHEMISTRY METHOD 08/27/2024 9:27 AM [facility] eGFR 100 >=60 mL/min/1. 73m2 LAB CHEMISTRY METHOD 08/27/2024 9:27 AM [facility] Comment:Calculation based on the Chronic Kidney Disease Epidemiology Collaboration (CKD-EPI) equation refit without adjustment for race. BUN/Creatinine Ratio 26.8 LAB CHEMISTRY METHOD 08/27/2024 9:27 AM [facility] Calcium 9.5 8.5 - 10.5 mg/dL LAB CHEMISTRY METHOD 08/27/2024 9:27 AM [facility] AST (SGOT) 19 10 - 42 unit/L LAB CHEMISTRY METHOD 08/27/2024 9:27 AM [facility] ALT (SGPT) 29 10 - 60 unit/L LAB CHEMISTRY METHOD 08/27/2024 9:27 AM [facility] Alkaline Phosphatase 53 42 - 121 unit/L LAB CHEMISTRY METHOD 08/27/2024 9:27 AM [facility] Total Protein 6.5 6.0 - 8.0 g/dL LAB CHEMISTRY METHOD 08/27/2024 9:27 AM [facility] Albumin 3.2 3.2 - 5.0 g/dL LAB CHEMISTRY METHOD 08/27/2024 9:27 AM [facility] Total Bilirubin 0.6 0.0 - 1.4 mg/dL LAB CHEMISTRY METHOD 08/27/2024 9:27 AM [facility] Blood Venous blood specimen / Unknown Venipuncture / Unknown 08/27/2024 6:34 AM EST 08/27/2024 8:52 AM EST us Prince Le MD LAB BLOOD ORDERABLES Final Resul t [facility] [address] [place] [address], * (ABNORMAL) Complete blood count (08/27/2024 6:34 AM EST) WBC 12.7(H) 4.8 - 10.8 K/mcL LAB HEMETOLOGY METHOD 08/27/2024 9:04 AM [facility] RBC 3.80(L) 4.50 - 5.50 M/mcL LAB HEMETOLOGY METHOD 08/27/2024 9:04 AM [facility] Hemoglobin 10.9(L) 13.5 - 17.5 g/dL LAB HEMETOLOGY METHOD 08/27/2024 9:04 AM [facility] Hematocrit 34.6(L) 42.0 - 54.0 % LAB HEMETOLOGY METHOD 08/27/2024 9:04 AM [facility] MCV 91.5 79.0 - 98.0 FL LAB HEMETOLOGY METHOD 08/27/2024 9:04 AM [facility] MCH 28.8 27.0 - 32.0 pcg LAB HEMETOLOGY METHOD 08/27/2024 9:04 AM [facility] MCHC 31.5(L) 32.0 - 37.0 g/dL LAB HEMETOLOGY METHOD 08/27/2024 9:04 AM [facility] RDW 20.3(H) 11.0 - 15.0 % LAB HEMETOLOGY METHOD 08/27/2024 9:04 AM [facility] Platelets 422(H) 130 - 400 K/mcL LAB HEMETOLOGY METHOD 08/27/2024 9:04 AM [facility] MPV 12.5(H) 7.0 - 11.0 FL LAB HEMETOLOGY METHOD 08/27/2024 9:04 AM [facility] NRBC 0.0 <1.0 % LAB HEMETOLOGY METHOD 08/27/2024 9:04 AM [facility] NRBC Absolute 0.00 <0.10 K/mcL LAB HEMETOLOGY METHOD 08/27/2024 9:04 AM [facility] Blood Venous blood specimen / Unknown Venipuncture / Unknown 08/27/2024 6:34 AM EST 08/27/2024 8:52 AM EST us Prince Le MD LAB BLOOD ORDERABLES Final Resul t [facility] [address] [place] [address], documented in this encounter Visit Diagnoses Diagnosis Type 2 diabetes mellitus without complications (CMS/HCC V24, CMS/HCC V28) documented in this encounter Care Teams Demographic Analyst Relationship Specialty Start Date End Date Tram Álvarez MD 2 [facility] , [address] [facility] Physician Associ D/B/A: [facility] [place], [place] PCP - General Internal Medicine 03/30/18 documented as of this encounter
--- OUTSIDE RECORDS SUMMARY | 2025-04-12 10:12 | XMS_ITS | Encounter Summary ---
Author Organization [facility] Address [address] [place] [address] Care Team Providers Care Airworthiness Inspector Name Role Phone Tram Álvarez MD Primary Care Provider Encounter Details Date Type Department Care Team (Late st Contact Info) Description 09/09/2024 Lab Requisition [facility] - Main Lab 299 [facility] [place] [address] Prince Le MD 38 [facility] 204 [place], [address] Type 2 diabetes mellitus without complications [...] V28) documented in this encounter Care Teams Airworthiness Inspector Relationship Specialty Start Date End Date Tram Álvarez MD [address] [place] [address] , [address] [facility] Physician Associ D/B/A: [facility] [place], [place] PCP - General Internal Medicine 03/30/18 documented as of this encounter
--- OUTSIDE RECORDS SUMMARY | 2025-04-12 10:12 | XMS_ITS | Encounter Summary ---
Author Organization [facility] Address [address] [place] [address] Care Team Providers Care Manager Asset Management Name Role Phone Tram Álvarez MD Primary Care Provider [phone] Encounter Details Date Type Department Care Team (Late st Contact Info) Description 10/14/[address] [facility] - Main Lab 299 [facility] [place] [address] Prince Le MD 38 [facility] 204 [place], [address] Type 2 [...] documented in this encounter Care Teams Manager Asset Management Relationship Specialty Start Date End Date Tram Álvarez MD [address] [place] [address] , [address] [facility] Physician Associ D/B/A: [facility] [place], [place] PCP - General Internal Medicine 03/30/18 documented as of this encounter
--- OUTSIDE RECORDS SUMMARY | 2025-04-12 10:12 | XMS_ITS | Encounter Summary ---
Author Organization [facility] Address [address] [place] [address] Care Team Providers Care Fence Laborer Name Role Phone Tram Álvarez MD Primary Care Provider [phone] Encounter Details Date Type Department Care Team (Late st Contact Info) Description 02/24/2025 Lab Requisition [facility] - Main Lab 299 [facility] [place] [address] Preeti Lujan MD [address] [id number] Essential (primary) hypertension Social History Tobacco Use [...] LAB CHEMISTRY METHOD 02/24/2025 9:39 AM EDT [facility] Potassium 6.0(H) 3.5 - 5.5 mmol/L LAB CHEMISTRY METHOD 02/24/2025 9:39 AM EDT [facility] Chloride 110 96 - 110 mmol/L LAB CHEMISTRY METHOD 02/24/2025 9:39 AM [facility] CO2 27 21 - 32 mmol/L LAB CHEMISTRY METHOD 02/24/2025 9:39 AM [facility] Anion Gap 4 3 - 11 LAB CHEMISTRY METHOD 02/24/2025 9:39 AM [facility] Glucose 117(H) 70 - 100 mg/dL LAB CHEMISTRY METHOD 02/24/2025 9:39 AM [facility] BUN 27(H) 5 - 25 mg/dL LAB CHEMISTRY METHOD 02/24/2025 9:39 AM [facility] Creatinine 0.84 0.70 - 1.30 mg/dL LAB CHEMISTRY METHOD 02/24/2025 9:39 AM [facility] eGFR 94 >=60 mL/min/1. 73m2 LAB CHEMISTRY METHOD 02/24/2025 9:39 AM [facility] Comment:Calculation based on the Chronic Kidney Disease Epidemiology Collaboration (CKD-EPI) equation refit without adjustment for race. BUN/Creatinine Ratio 32.1 LAB CHEMISTRY METHOD 02/24/2025 9:39 AM [facility] Calcium 9.4 8.5 - 10.5 mg/dL LAB CHEMISTRY METHOD 02/24/2025 9:39 AM [facility] Blood Venous blood specimen / Unknown Venipuncture / Unknown 02/24/2025 6:34 AM EDT 02/24/2025 8:31 AM EDT us Preeti Lujan MD LAB BLOOD ORDERABLES Fin al Result [facility] [address] [place] [address], * (ABNORMAL) Complete blood count (02/24/2025 6:34 AM EDT) WBC 7.9 4.8 - 10.8 K/mcL LAB HEMETOLOGY METHOD 02/24/2025 9:35 AM [facility] RBC 3.90(L) 4.50 - 5.50 M/mcL LAB HEMETOLOGY METHOD 02/24/2025 9:35 AM [facility] Hemoglobin 11.0(L) 13.5 - 17.5 g/dL LAB HEMETOLOGY METHOD 02/24/2025 9:35 AM [facility] Hematocrit 36.9(L) 42.0 - 54.0 % LAB HEMETOLOGY METHOD 02/24/2025 9:35 AM [facility] MCV 95.3 79.0 - 98.0 FL LAB HEMETOLOGY METHOD 02/24/2025 9:35 AM [facility] MCH 28.4 27.0 - 32.0 pcg LAB HEMETOLOGY METHOD 02/24/2025 9:35 AM [facility] MCHC 29.8(L) 32.0 - 37.0 g/dL LAB HEMETOLOGY METHOD 02/24/2025 9:35 AM [facility] RDW 17.6(H) 11.0 - 15.0 % LAB HEMETOLOGY METHOD 02/24/2025 9:35 AM [facility] Platelets 287 130 - 400 K/mcL LAB HEMETOLOGY METHOD 02/24/2025 9:35 AM [facility] MPV 12.9(H) 7.0 - 11.0 FL LAB HEMETOLOGY METHOD 02/24/2025 9:35 AM [facility] NRBC 0.0 <1.0 % LAB HEMETOLOGY METHOD 02/24/2025 9:35 AM [facility] NRBC Absolute 0.00 <0.10 K/mcL LAB HEMETOLOGY METHOD 02/24/2025 9:35 AM EDT [facility] Blood Venous blood specimen / Unknown Venipuncture / Unknown 02/24/2025 6:34 AM EDT 02/24/2025 8:31 AM EDT us Preeti Lujan MD LAB BLOOD ORDERABLES Fin al Result [facility] [address] [place] [address], documented in this encounter Visit Diagnoses Diagnosis Essential (primary) hypertension Unspecified essential hypertension documented in this encounter Care Teams Fence Laborer Relationship Specialty Start Date End Date Tarm Álvarez MD 2 [facility] , [address] Physician Associ D/B/A: [facility] [place], [place] PCP - General Internal Medicine 03/30/18 documented as of this encounter
--- OUTSIDE RECORDS SUMMARY | 2025-04-12 10:12 | XMS_ITS | Encounter Summary ---
Author Organization [facility] Address [address] [place] [address] Care Team Providers Care Director Treasurer Name Role Phone Tram Álvarez MD Primary Care Provider [phone] Encounter Details Date Type Department Care Team (Late st Contact Info) Description 08/12/2024 Lab Requisition [facility] - Main Lab [address] [place] [address] Prince Le MD 38 [facility] [address] [place], [address] Type 2 diabetes mellitus without complications [...] mg/dL LAB CHEMISTRY METHOD 08/13/2024 11:42 AM [facility] Blood Venous blood specimen / Unknown Venipuncture / Unknown 08/13/2024 7:38 AM EST 08/13/2024 11:02 AM EST us Prince Le MD LAB BLOOD ORDERABLES Final Resul t [facility] [address] [place] [address], * (ABNORMAL) Comprehensive metabolic panel (08/13/2024 7:38 AM EST) Sodium 137 133 - 145 mmol/L LAB CHEMISTRY METHOD 08/13/2024 11:42 AM [facility] Potassium 5.1 3.5 - 5.5 mmol/L LAB CHEMISTRY METHOD 08/13/2024 11:42 AM [facility] Chloride 103 96 - 110 mmol/L LAB CHEMISTRY METHOD 08/13/2024 11:42 AM [facility] CO2 29 21 - 32 mmol/L LAB CHEMISTRY METHOD 08/13/2024 11:42 AM [facility] Anion Gap 5 3 - 11 LAB CHEMISTRY METHOD 08/13/2024 11:42 AM [facility] Glucose 90 70 - 100 mg/dL LAB CHEMISTRY METHOD 08/13/2024 11:42 AM [facility] BUN 31(H) 5 - 25 mg/dL LAB CHEMISTRY METHOD 08/13/2024 11:42 AM [facility] Creatinine 0.98 0.70 - 1.30 mg/dL LAB CHEMISTRY METHOD 08/13/2024 11:42 AM [facility] eGFR 84 >=60 mL/min/1. 73m2 LAB CHEMISTRY METHOD 08/13/2024 11:42 AM [facility] Comment:Calculation based on the Chronic Kidney Disease Epidemiology Collaboration (CKD-EPI) equation refit without adjustment for race. BUN/Creatinine Ratio 31.6 LAB CHEMISTRY METHOD 08/13/2024 11:42 AM [facility] Calcium 9.2 8.5 - 10.5 mg/dL LAB CHEMISTRY METHOD 08/13/2024 11:42 AM [facility] AST (SGOT) 36 10 - 42 unit/L LAB CHEMISTRY METHOD 08/13/2024 11:42 AM [facility] ALT (SGPT) 32 10 - 60 unit/L LAB CHEMISTRY METHOD 08/13/2024 11:42 AM [facility] Alkaline Phosphatase 47 42 - 121 unit/L LAB CHEMISTRY METHOD 08/13/2024 11:42 AM [facility] Total Protein 6.4 6.0 - 8.0 g/dL LAB CHEMISTRY METHOD 08/13/2024 11:42 AM [facility] Albumin 3.4 3.2 - 5.0 g/dL LAB CHEMISTRY METHOD 08/13/2024 11:42 AM [facility] Total Bilirubin 0.6 0.0 - 1.4 mg/dL LAB CHEMISTRY METHOD 08/13/2024 11:42 AM [facility] Blood Venous blood specimen / Unknown Venipuncture / Unknown 08/13/2024 7:38 AM EST 08/13/2024 11:02 AM EST us Prince Le MD LAB BLOOD ORDERABLES Final Resul t [facility] [address] [place] [address], * (ABNORMAL) Complete blood count (08/13/2024 7:30 AM EST) WBC 8.4 4.8 - 10.8 K/mcL LAB HEMETOLOGY METHOD 08/13/2024 11:11 AM [facility] RBC 4.20(L) 4.50 - 5.50 M/mcL LAB HEMETOLOGY METHOD 08/13/2024 11:11 AM [facility] Hemoglobin 11.6(L) 13.5 - 17.5 g/dL LAB HEMETOLOGY METHOD 08/13/2024 11:11 AM [facility] Hematocrit 36.1(L) 42.0 - 54.0 % LAB HEMETOLOGY METHOD 08/13/2024 11:11 AM [facility] MCV 86.2 79.0 - 98.0 FL LAB HEMETOLOGY METHOD 08/13/2024 11:11 AM [facility] MCH 27.7 27.0 - 32.0 pcg LAB HEMETOLOGY METHOD 08/13/2024 11:11 AM [facility] MCHC 32.1 32.0 - 37.0 g/dL LAB HEMETOLOGY METHOD 08/13/2024 11:11 AM [facility] RDW 21.2(H) 11.0 - 15.0 % LAB HEMETOLOGY METHOD 08/13/2024 11:11 AM [facility] Platelets 338 130 - 400 K/mcL LAB HEMETOLOGY METHOD 08/13/2024 11:11 AM [facility] MPV 12.8(H) 7.0 - 11.0 FL LAB HEMETOLOGY METHOD 08/13/2024 11:11 AM [facility] NRBC 0.0 <1.0 % LAB HEMETOLOGY METHOD 08/13/2024 11:11 AM [facility] NRBC Absolute 0.00 <0.10 K/mcL LAB HEMETOLOGY METHOD 08/13/2024 11:11 AM [facility] Blood Venous blood specimen / Unknown Venipuncture / Unknown 08/13/2024 7:30 AM EST 08/13/2024 10:59 AM EST us Prince Le MD LAB BLOOD ORDERABLES Final Resul t [facility] [address] [place] [address], documented in this encounter Visit Diagnoses Diagnosis Type 2 diabetes mellitus without complications (CMS/HCC V24, CMS/HCC V28) documented in this encounter Care Teams Director Treasurer Relationship Specialty Start Date End Date Tram Álvarez MD 2 [facility] , [address] [facility] Physician Associ D/B/A: [facility] [place], [place] PCP - General Internal Medicine 03/30/18 documented as of this encounter
--- OUTSIDE RECORDS SUMMARY | 2025-04-12 10:12 | XMS_ITS | Encounter Summary ---
Author Organization [facility] Address [address] [place] [address] Care Team Providers Care X Ray Nurse Name Role Phone Tram Álvarez MD Primary Care Provider [phone] Encounter Details Date Type Department Care Team (Late st Contact Info) Description 09/02/2024 Lab Requisition [facility] - Main Lab [address] [place] [address] Prince Le MD 38 [facility] 204 [place], [address] Type 2 diabetes mellitus without complications [...] mg/dL LAB CHEMISTRY METHOD 09/03/2024 10:05 AM [facility] Blood Venous blood specimen / Unknown Venipuncture / Unknown 09/03/2024 6:35 AM EST 09/03/2024 7:52 AM EST us Prince eL MD LAB BLOOD ORDERABLES Final Resul t [facility] [address] [place] [address], * (ABNORMAL) Comprehensive metabolic panel (09/03/2024 6:35 AM EST) Sodium 138 133 - 145 mmol/L LAB CHEMISTRY METHOD 09/03/2024 9:59 AM [facility] Potassium 4.2 3.5 - 5.5 mmol/L LAB CHEMISTRY METHOD 09/03/2024 9:59 AM [facility] Chloride 105 96 - 110 mmol/L LAB CHEMISTRY METHOD 09/03/2024 9:59 AM [facility] CO2 28 21 - 32 mmol/L LAB CHEMISTRY METHOD 09/03/2024 9:59 AM [facility] Anion Gap 5 3 - 11 LAB CHEMISTRY METHOD 09/03/2024 9:59 AM [facility] Glucose 120(H) 70 - 100 mg/dL LAB CHEMISTRY METHOD 09/03/2024 9:59 AM [facility] BUN 23 5 - 25 mg/dL LAB CHEMISTRY METHOD 09/03/2024 9:59 AM [facility] Creatinine 0.88 0.70 - 1.30 mg/dL LAB CHEMISTRY METHOD 09/03/2024 9:59 AM [facility] eGFR 94 >=60 mL/min/1. 73m2 LAB CHEMISTRY METHOD 09/03/2024 9:59 AM [facility] Comment:Calculation based on the Chronic Kidney Disease Epidemiology Collaboration (CKD-EPI) equation refit without adjustment for race. BUN/Creatinine Ratio 26.1 LAB CHEMISTRY METHOD 09/03/2024 9:59 AM [facility] Calcium 9.1 8.5 - 10.5 mg/dL LAB CHEMISTRY METHOD 09/03/2024 9:59 AM [facility] AST (SGOT) 23 10 - 42 unit/L LAB CHEMISTRY METHOD 09/03/2024 9:59 AM [facility] ALT (SGPT) 29 10 - 60 unit/L LAB CHEMISTRY METHOD 09/03/2024 9:59 AM [facility] Alkaline Phosphatase 59 42 - 121 unit/L LAB CHEMISTRY METHOD 09/03/2024 9:59 AM [facility] Total Protein 5.9(L) 6.0 - 8.0 g/dL LAB CHEMISTRY METHOD 09/03/2024 9:59 AM [facility] Albumin 3.1(L) 3.2 - 5.0 g/dL LAB CHEMISTRY METHOD 09/03/2024 9:59 AM [facility] Total Bilirubin 0.4 0.0 - 1.4 mg/dL LAB CHEMISTRY METHOD 09/03/2024 9:59 AM [facility] Blood Venous blood specimen / Unknown Venipuncture / Unknown 09/03/2024 6:35 AM EST 09/03/2024 7:52 AM EST us Prince Le MD LAB BLOOD ORDERABLES Final Resul t [facility] [address] [place] [address], * (ABNORMAL) Complete blood count (09/03/2024 6:35 AM EST) WBC 9.2 4.8 - 10.8 K/mcL LAB HEMETOLOGY METHOD 09/03/2024 8:43 AM [facility] RBC 3.70(L) 4.50 - 5.50 M/mcL LAB HEMETOLOGY METHOD 09/03/2024 8:43 AM [facility] Hemoglobin 10.8(L) 13.5 - 17.5 g/dL LAB HEMETOLOGY METHOD 09/03/2024 8:43 AM [facility] Hematocrit 34.4(L) 42.0 - 54.0 % LAB HEMETOLOGY METHOD 09/03/2024 8:43 AM [facility] MCV 93.5 79.0 - 98.0 FL LAB HEMETOLOGY METHOD 09/03/2024 8:43 AM [facility] MCH 29.3 27.0 - 32.0 pcg LAB HEMETOLOGY METHOD 09/03/2024 8:43 AM [facility] MCHC 31.4(L) 32.0 - 37.0 g/dL LAB HEMETOLOGY METHOD 09/03/2024 8:43 AM [facility] RDW 20.0(H) 11.0 - 15.0 % LAB HEMETOLOGY METHOD 09/03/2024 8:43 AM [facility] Platelets 333 130 - 400 K/mcL LAB HEMETOLOGY METHOD 09/03/2024 8:43 AM [facility] MPV 12.3(H) 7.0 - 11.0 FL LAB HEMETOLOGY METHOD 09/03/2024 8:43 AM [facility] NRBC 0.0 <1.0 % LAB HEMETOLOGY METHOD 09/03/2024 8:43 AM [facility] NRBC Absolute 0.00 <0.10 K/mcL LAB HEMETOLOGY METHOD 09/03/2024 8:43 AM [facility] Blood Venous blood specimen / Unknown Venipuncture / Unknown 09/03/2024 6:35 AM EST 09/03/2024 7:52 AM EST us Prince Le MD LAB BLOOD ORDERABLES Final Resul t [facility] [address] [place] [address], documented in this encounter Visit Diagnoses Diagnosis Type 2 diabetes mellitus without complications (CMS/HCC V24, CMS/HCC V28) documented in this encounter Care Teams X Ray Nurse Relationship Specialty Start Date End Date Tram Álvarez MD 2 [facility] , [address] [facility] Physician Associ D/B/A: [facility] JAS Duque PCP - General Internal Medicine 03/30/18 documented as of this encounter
--- OUTSIDE RECORDS SUMMARY | 2025-04-12 10:12 | XMS_ITS | Encounter Summary ---
Author Organization [facility] Address [address] [place] [address] Care Team Providers Care Senior Project Leader/Team Lead Name Role Phone Tram Álvarez MD Primary Care Provider [phone] Encounter Details Date Type Department Care Team (Late st Contact Info) Description 05/14/2024 Lab Requisition [facility] - Main Lab [address] [place] [address] Prince Le MD 38 [facility] [address] [place], [address] Essential (primary) hypertension Social History [...] LAB CHEMISTRY METHOD 05/17/2024 10:43 AM EST [facility] Potassium 4.5 3.5 - 5.5 mmol/L LAB CHEMISTRY METHOD 05/17/2024 10:43 AM EST [facility] Chloride 110 96 - [...] Resul t [facility] [address] [place] [address], * (ABNORMAL) Complete blood count (05/17/2024 6:41 [...] LAB BLOOD ORDERABLES Final Resul t [facility] [address] [place] [address], [place] [phone] documented in this encounter Visit Diagnoses Diagnosis Essential (primary) hypertension Unspecified essential hypertension documented in this encounter Care Teams Senior Project Leader/Team Lead Relationship Specialty Start Date End Date Tram Álvarez MD 2 [facility] , [address] [facility] Physician Associ D/B/A: [facility] [place], [place] PCP - General Internal Medicine 03/30/18 documented as of this encounter
--- OUTSIDE RECORDS SUMMARY | 2025-04-12 10:12 | XMS_ITS | Encounter Summary ---
Author Organization [facility] Address [address] [place] [address] Care Team Providers Care Train Operator Name Role Phone Tram Álvarez MD Primary Care Provider [phone] Encounter Details Date Type Department Care Team (Late st Contact Info) Description 08/19/2024 Lab Requisition [facility] - Main Lab [address] [place] [address] Prince Le MD 38 [facility] [address] [place], [address] Type 2 diabetes mellitus [...] Resul t [facility] [address] [place] [address], * (ABNORMAL) Comprehensive metabolic panel (08/20/2024 7:39 [...] Resul t [facility] [address] [place] [address], * (ABNORMAL) Complete blood count (08/20/2024 7:39 [...] Resul t [facility] ([facility]) [facility] [address] [place] [address], documented in this encounter Visit Diagnoses Diagnosis Type 2 diabetes mellitus without complications (CMS/HCC V24, CMS/HCC V28) documented in this encounter Care Teams Train Operator Relationship Specialty Start Date End Date Tram Álvarez MD 2 [facility] , [address] [facility] Physician Associ D/B/A: [facility] JAS Duque PCP - General Internal Medicine 03/30/18 documented as of this encounter
--- OUTSIDE RECORDS SUMMARY | 2025-04-12 10:12 | XMS_ITS | Encounter Summary ---
Author Organization [facility] Address [address] [place] [address] Care Team Providers Care Plane Tender Name Role Phone Tram Álvarez MD Primary Care Provider Encounter Details Date Type Department Care Team (Late st Contact Info) Description 08/05/2024 Lab Requisition [facility] - Main Lab [address] [place] [address] Prince Le MD 38 [facility] [address] [place], [address] Type 2 diabetes mellitus without complications [...] [facility] [address] [place] [address], * Comprehensive metabolic panel (08/06/2024 6:49 AM [...] [facility] [address] [place] [address], * (ABNORMAL) Complete blood count (08/06/2024 6:49 AM EST) WBC 8.2 4.8 - 10.8 K/mcL LAB HEMETOLOGY METHOD 08/06/2024 9:12 AM EST [facility] RBC 4.50 4.50 - [...] Final Resul t [facility] ([facility]) [facility] [address] [place] [address], documented in this encounter Visit Diagnoses Diagnosis Type 2 diabetes mellitus without complications (CMS/HCC V24, CMS/HCC V28) documented in this encounter Care Teams Plane Tender Relationship Specialty Start Date End Date Tram Álvarez MD 2 [facility] , [address] [facility] Physician Associ D/B/A: [facility] [place] PCP - General Internal Medicine 03/30/18 documented as of this encounter
--- OUTSIDE RECORDS SUMMARY | 2025-04-12 10:12 | XMS_ITS | Encounter Summary ---
Author Organization [facility] Address [address] [place] [address] Care Team Providers Care Lens Finisher Name Role Phone Tram Álvarez MD Primary Care Provider [phone] Encounter Details Date Type Department Care Team (Late st Contact Info) Description 07/29/2024 Lab Requisition [facility] - Main Lab [address] [place] [address] Prince Le MD 38 [facility] [address] [place], [address] Type 2 diabetes mellitus without complications [...] mg/dL LAB CHEMISTRY METHOD 07/30/2024 10:25 AM [facility] Blood Venous blood specimen / Unknown Venipuncture / Unknown 07/30/2024 7:30 AM EST 07/30/2024 9:39 AM EST us Prince Le MD LAB BLOOD ORDERABLES Final Resul t [facility] [address] [place] [address], * (ABNORMAL) Comprehensive metabolic panel (07/30/2024 7:30 AM EST) Sodium 140 133 - 145 mmol/L LAB CHEMISTRY METHOD 07/30/2024 10:25 AM [facility] Potassium 5.1 3.5 - 5.5 mmol/L LAB CHEMISTRY METHOD 07/30/2024 10:25 AM [facility] Chloride 107 96 - 110 mmol/L LAB CHEMISTRY METHOD 07/30/2024 10:25 AM [facility] CO2 31 21 - 32 mmol/L LAB CHEMISTRY METHOD 07/30/2024 10:25 AM [facility] Anion Gap 2(L) 3 - 11 LAB CHEMISTRY METHOD 07/30/2024 10:25 AM [facility] Glucose 76 70 - 100 mg/dL LAB CHEMISTRY METHOD 07/30/2024 10:25 AM [facility] BUN 28(H) 5 - 25 mg/dL LAB CHEMISTRY METHOD 07/30/2024 10:25 AM [facility] Creatinine 1.13 0.70 - 1.30 mg/dL LAB CHEMISTRY METHOD 07/30/2024 10:25 AM [facility] LAB eGFR 71 >=60 mL/min/1. 73m2 LAB CHEMISTRY METHOD 07/30/2024 10:25 AM [facility] Comment:Calculation based on the Chronic Kidney Disease Epidemiology Collaboration (CKD-EPI) equation refit without adjustment for race. BUN/Creatinine Ratio 24.8 LAB CHEMISTRY METHOD 07/30/2024 10:25 AM [facility] Calcium 9.5 8.5 - 10.5 mg/dL LAB CHEMISTRY METHOD 07/30/2024 10:25 AM [facility] AST (SGOT) 28 10 - 42 unit/L LAB CHEMISTRY METHOD 07/30/2024 10:25 AM [facility] ALT (SGPT) 24 10 - 60 unit/L LAB CHEMISTRY METHOD 07/30/2024 10:25 AM [facility] Alkaline Phosphatase 62 42 - 121 unit/L LAB CHEMISTRY METHOD 07/30/2024 10:25 AM [facility] Total Protein 6.4 6.0 - 8.0 g/dL LAB CHEMISTRY METHOD 07/30/2024 10:25 AM [facility] Albumin 3.2 3.2 - 5.0 g/dL LAB CHEMISTRY METHOD 07/30/2024 10:25 AM [facility] Total Bilirubin 0.4 0.0 - 1.4 mg/dL LAB CHEMISTRY METHOD 07/30/2024 10:25 AM [facility] Blood Venous blood specimen / Unknown Venipuncture / Unknown 07/30/2024 7:30 AM EST 07/30/2024 9:39 AM EST us Prince Le MD LAB BLOOD ORDERABLES Final Resul t [facility] [address] [place] [address], * (ABNORMAL) Complete blood count (07/30/2024 7:30 AM EST) WBC 8.9 4.8 - 10.8 K/mcL LAB HEMETOLOGY METHOD 07/30/2024 9:55 AM EST [facility] RBC 4.30(L) 4.50 - 5.50 M/mcL LAB HEMETOLOGY METHOD 07/30/2024 9:55 AM [facility] Hemoglobin 12.1(L) 13.5 - 17.5 g/dL LAB HEMETOLOGY METHOD 07/30/2024 9:55 AM [facility] Hematocrit 36.5(L) 42.0 - 54.0 % LAB HEMETOLOGY METHOD 07/30/2024 9:55 AM [facility] MCV 84.3 79.0 - 98.0 FL LAB HEMETOLOGY METHOD 07/30/2024 9:55 AM [facility] MCH 27.9 27.0 - 32.0 pcg LAB HEMETOLOGY METHOD 07/30/2024 9:55 AM [facility] MCHC 33.2 32.0 - 37.0 g/dL LAB HEMETOLOGY METHOD 07/30/2024 9:55 AM [facility] RDW 19.4(H) 11.0 - 15.0 % LAB HEMETOLOGY METHOD 07/30/2024 9:55 AM [facility] Platelets 315 130 - 400 K/mcL LAB HEMETOLOGY METHOD 07/30/2024 9:55 AM [facility] MPV 12.7(H) 7.0 - 11.0 FL LAB HEMETOLOGY METHOD 07/30/2024 9:55 AM [facility] NRBC 0.0 <1.0 % LAB HEMETOLOGY METHOD 07/30/2024 9:55 AM [facility] NRBC Absolute 0.00 <0.10 K/mcL LAB HEMETOLOGY METHOD 07/30/2024 9:55 AM [facility] Blood Venous blood specimen / Unknown Venipuncture / Unknown 07/30/2024 7:30 AM EST 07/30/2024 9:39 AM EST us Prince Le MD LAB BLOOD ORDERABLES Final Resul t [facility] [address] [place] [address], documented in this encounter Visit Diagnoses Diagnosis Type 2 diabetes mellitus without complications (CMS/HCC V24, CMS/HCC V28) documented in this encounter Care Teams Lens Finisher Relationship Specialty Start Date End Date Tram Álvarez MD 2 [facility] , [address] [facility] Physician Associ D/B/A: [facility] JAS Duque PCP - General Internal Medicine 03/30/18 documented as of this encounter
--- OUTSIDE RECORDS SUMMARY | 2025-04-12 10:12 | XMS_ITS | Encounter Summary ---
Author Organization [facility] Address [address] [place] [address] Care Team Providers Care Cras Name Role Phone Tram Álvarez MD Primary Care Provider [phone] Encounter Details Date Type Department Care Team (Late st Contact Info) Description 05/21/2024 Lab Requisition [facility] - Main Lab [address] [place] [address] Prince Le MD 38 [facility] [address] [place], [address] Essential (primary) hypertension Social History Tobacco [...] LAB CHEMISTRY METHOD 05/24/2024 9:02 AM EST [facility] Potassium 4.2 3.5 - 5.5 mmol/L LAB CHEMISTRY METHOD 05/24/2024 9:02 AM EST [facility] Chloride 109 96 - 110 mmol/L LAB CHEMISTRY METHOD 05/24/2024 9:02 AM [facility] CO2 28 21 - 32 mmol/L LAB CHEMISTRY METHOD 05/24/2024 9:02 AM [facility] Anion Gap 5 3 - 11 LAB CHEMISTRY METHOD 05/24/2024 9:02 AM [facility] Glucose 129(H) 70 - 100 mg/dL LAB CHEMISTRY METHOD 05/24/2024 9:02 AM [facility] BUN 38(H) 5 - 25 mg/dL LAB CHEMISTRY METHOD 05/24/2024 9:02 AM [facility] Creatinine 1.33(H) 0.70 - 1.30 mg/dL LAB CHEMISTRY METHOD 05/24/2024 9:02 AM [facility] eGFR 58(L) >=60 mL/min/1. 73m2 LAB CHEMISTRY METHOD 05/24/2024 9:02 AM [facility] Comment:Calculation based on the Chronic Kidney Disease Epidemiology Collaboration (CKD-EPI) equation refit without adjustment for race. BUN/Creatinine Ratio 28.6 LAB CHEMISTRY METHOD 05/24/2024 9:02 AM [facility] Calcium 9.2 8.5 - 10.5 mg/dL LAB CHEMISTRY METHOD 05/24/2024 9:02 AM [facility] Blood Venous blood specimen / Unknown Venipuncture / Unknown 05/24/2024 6:00 AM EST 05/24/2024 7:45 AM EST us Prince Le MD LAB BLOOD ORDERABLES Final Resul t [facility] [address] [place] [address], * (ABNORMAL) Complete blood count (05/24/2024 6:00 AM EST) WBC 9.3 4.8 - 10.8 K/mcL LAB HEMETOLOGY METHOD 05/24/2024 9:03 AM [facility] RBC 4.90 4.50 - 5.50 M/mcL LAB HEMETOLOGY METHOD 05/24/2024 9:03 AM [facility] Hemoglobin 13.6 13.5 - 17.5 g/dL LAB HEMETOLOGY METHOD 05/24/2024 9:03 AM [facility] Hematocrit 43.1 42.0 - 54.0 % LAB HEMETOLOGY METHOD 05/24/2024 9:03 AM [facility] MCV 87.4 79.0 - 98.0 FL LAB HEMETOLOGY METHOD 05/24/2024 9:03 AM [facility] MCH 27.6 27.0 - 32.0 pcg LAB HEMETOLOGY METHOD 05/24/2024 9:03 AM [facility] MCHC 31.6(L) 32.0 - 37.0 g/dL LAB HEMETOLOGY METHOD 05/24/2024 9:03 AM [facility] RDW 16.4(H) 11.0 - 15.0 % LAB HEMETOLOGY METHOD 05/24/2024 9:03 AM [facility] Platelets 249 130 - 400 K/mcL LAB HEMETOLOGY METHOD 05/24/2024 9:03 AM [facility] MPV 13.1(H) 7.0 - 11.0 FL LAB HEMETOLOGY METHOD 05/24/2024 9:03 AM [facility] NRBC 0.0 <1.0 % LAB HEMETOLOGY METHOD 05/24/2024 9:03 AM [facility] NRBC Absolute 0.00 <0.10 K/mcL LAB HEMETOLOGY METHOD 05/24/2024 9:03 AM [facility] Blood Venous blood specimen / Unknown Venipuncture / Unknown 05/24/2024 6:00 AM EST 05/24/2024 7:45 AM EST us Prince Le MD LAB BLOOD ORDERABLES Final Resul t [facility] [address] [place] [address], [place] [phone] documented in this encounter Visit Diagnoses Diagnosis Essential (primary) hypertension Unspecified essential hypertension documented in this encounter Care Teams Cras Relationship Specialty Start Date End Date Tram Álvarez MD 2 [facility] , [address] [place] [address] Physician Associ D/B/A: [facility] JAS Duque PCP - General Internal Medicine 03/30/18 documented as of this encounter
--- OUTSIDE RECORDS SUMMARY | 2025-04-12 10:12 | XMS_ITS | Encounter Summary ---
Author Organization [facility] Address [address] [place] [address] Care Team Providers Care Implementation Technician Name Role Phone Tram Álvarez MD Primary Care Provider [phone] Encounter Details Date Type Department Care Team (Late st Contact Info) Description 03/01/2025 Lab Requisition [facility] - Main Lab [address] [facility] [place] [address] Preeti Lujan MD [address] [phone] Essential (primary) hypertension Social History Tobacco Use [...] LAB CHEMISTRY METHOD 03/01/2025 11:14 AM EDT [facility] Potassium 4.6 3.5 - 5.5 mmol/L LAB CHEMISTRY METHOD 03/01/2025 11:14 AM [facility] Chloride 112(H) 96 - 110 mmol/L LAB CHEMISTRY METHOD 03/01/2025 11:14 AM [facility] CO2 25 21 - 32 mmol/L LAB CHEMISTRY METHOD 03/01/2025 11:14 AM [facility] Anion Gap 4 3 - 11 LAB CHEMISTRY METHOD 03/01/2025 11:14 AM [facility] Glucose 135(H) 70 - 100 mg/dL LAB CHEMISTRY METHOD 03/01/2025 11:14 AM [facility] BUN 25 5 - 25 mg/dL LAB CHEMISTRY METHOD 03/01/2025 11:14 AM [facility] Creatinine 0.76 0.70 - 1.30 mg/dL LAB CHEMISTRY METHOD 03/01/2025 11:14 AM [facility] eGFR 97 >=60 mL/min/1. 73m2 LAB CHEMISTRY METHOD 03/01/2025 11:14 AM [facility] Comment:Calculation based on the Chronic Kidney Disease Epidemiology Collaboration (CKD-EPI) equation refit without adjustment for race. BUN/Creatinine Ratio 32.9 LAB CHEMISTRY METHOD 03/01/2025 11:14 AM [facility] Calcium 8.5 8.5 - 10.5 mg/dL LAB CHEMISTRY METHOD 03/01/2025 11:14 AM [facility] Blood Venous blood specimen / Unknown Venipuncture / Unknown 03/01/2025 6:05 AM EDT 03/01/2025 8:40 AM EDT us Preeti Lujan MD LAB BLOOD ORDERABLES Fin al Result [facility] [address] [place] [address], documented in this encounter Visit Diagnoses Diagnosis Essential (primary) hypertension Unspecified essential hypertension documented in this encounter Care Teams Implementation Technician Relationship Specialty Start Date End Date Tram Álvarez MD 2 [facility] , [address] Physician Associ D/B/A: [facility] JAS Duque PCP - General Internal Medicine 03/30/18 documented as of this encounter
--- OUTSIDE RECORDS SUMMARY | 2025-04-12 10:12 | XMS_ITS | Clinical Summary ---
Author Organization [facility] Address [address] [place] [address] Phone Care Team Providers Care Cream Cheese Maker Name Role Phone Tram Álvarez MD Primary Care Provider Encounters Date Type Department Care Team Description 03/01/[address] [facility] Lab [address] [place] [address] Preeti Lujan MD Essential (primary) hypertension 02/24/[address] [facility] Lab [address] [place] [address] Preeti Lujan MD Essential (primary) [...] Date Last Done Comments Colorectal Cancer Screening: Colonoscopy 1955 Diabetes: Annual Foot Exam 10/04/1965 Diabetes: Annual Retina Eye Exam 10/04/1965 Zoster Vaccines (1 of 2) 10/04/2005 RSV Immunization Adult Patients (1 - Risk 60-74 years 1-dose series) 2015 Pneumococcal Vaccine: 50+ Years (2 of 2 - PCV) 05/12/2019 05/12/2018, 07/09/2010 DTaP,Tdap,and Td Vaccines (2 - Td or Tdap) 08/31/2020 08/31/2010 Abdominal Aortic Aneurysm (AAA) Screen 06/04/2022 Falls Risk Assessment 06/04/2022 Hepatitis C [...] EDT Type 2 diabetes mellitus without complications ([facility] V24, [facility] V28) LIPID PANEL WITH REFLEX TO DIRECT LDL Routine 08/27/2024 6:34 AM EST Type 2 diabetes mellitus without complications ([facility]) from Last 3 Months or Most Recently Relevant to Health Maintenance Results * (ABNORMAL) Basic metabolic panel (03/01/2025 6:05 AM EDT) Only the most recent of2 resultswithin the time period is included. Sodium 141 133 - 145 mmol/L LAB CHEMISTRY METHOD 03/01/2025 11:14 AM [facility] Potassium 4.6 3.5 - 5.5 mmol/L LAB CHEMISTRY METHOD 03/01/2025 11:14 AM [facility] Chloride 112(H) 96 - 110 mmol/L LAB CHEMISTRY METHOD 03/01/2025 11:14 AM [facility] CO2 25 21 - 32 mmol/L LAB CHEMISTRY METHOD 03/01/2025 11:14 AM [facility] Anion Gap 4 3 - 11 LAB CHEMISTRY METHOD 03/01/2025 11:14 AM [facility] Glucose 135(H) 70 - 100 mg/dL LAB CHEMISTRY METHOD 03/01/2025 11:14 AM [facility] BUN 25 5 - 25 mg/dL LAB CHEMISTRY METHOD 03/01/2025 11:14 AM [facility] Creatinine 0.76 0.70 - 1.30 mg/dL LAB CHEMISTRY METHOD 03/01/2025 11:14 AM [facility] eGFR 97 >=60 mL/min/1. 73m2 LAB CHEMISTRY METHOD 03/01/2025 11:14 AM [facility] Comment:Calculation based on the Chronic Kidney Disease Epidemiology Collaboration (CKD-EPI) equation refit without adjustment for race. BUN/Creatinine Ratio 32.9 LAB CHEMISTRY METHOD 03/01/2025 11:[address] [facility] Calcium 8.5 8.5 - 10.5 mg/dL LAB CHEMISTRY METHOD 03/01/2025 11:14 AM [facility] Blood Venous blood specimen / Unknown Venipuncture / Unknown 03/01/2025 6:05 AM EDT 03/01/2025 8:40 AM EDT us Preeti Lujan MD LAB BLOOD ORDERABLES Fin al Result [facility] [address] [place] [address], * (ABNORMAL) Complete blood count (02/24/2025 6:34 [...] al Result [facility] [address] [place] [address], * Hemoglobin A1c (10/22/2024 6:43 AM EDT) [...] ORDERABLES Fin al Result Performing Organization Address City/[facility]/ZIP Co de Phone Number [facility] [address] [place] [address], [place] [phone] * (ABNORMAL) Lipid panel with reflex to direct LDL (08/27/2024 6:34 AM EST) [facility] Cholesterol 96 0 - 200 mg/dL LAB CHEMISTRY METHOD 08/27/2024 9:[address] [facility] Triglycerides 249(H) 0 - 150 mg/dL LAB CHEMISTRY METHOD 08/27/2024 9:[address] [facility] HDL 30(L) >=40 mg/dL LAB [...] 4.4 LAB CHEMISTRY METHOD 08/27/2024 9:[address] [facility] Blood Venous blood specimen / Unknown Venipuncture / Unknown 08/27/2024 6:34 AM EST 08/27/2024 8:52 AM EST us Prince Le MD LAB BLOOD ORDERABLES Final Resul t Performing Organization Address [facility]/ZIP Co de Phone Number [facility] [address] [place] [address], [place] [phone] from Last 3 Months or Most Recently Relevant to Health Maintenance Insurance [employer] Member Subscriber Plan / Payer (Ef fective 2023-Present) Name:EDER GARCIA Relation to Subscriber:Self Name:Rick Eder Talamantes Payer ID:[id number] Group ID:[id number] Type:Not on file Address: [place] [address] [place] [id number] Care Teams Cream Cheese Maker Relationship Specialty Start Date End Date Tram Álvarez MD [address] [place] [address] , [address] [facility] Physician Associ D/B/A: [facility] JAS Duque PCP - General Internal Medicine 03/30/18
--- OUTSIDE RECORDS SUMMARY | 2025-04-12 10:12 | XMS_ITS | Encounter Summary ---
Author Organization [facility] Address [address] [place] [address] Care Team Providers Care Finger Buffs Assembler Name Role Phone Tram Álvarez MD Primary Care Provider [phone] Encounter Details Date Type Department Care Team (Late st Contact Info) Description 10/18/2024 Lab Requisition [facility] - Main Lab [address] [place] [address] Preeti Lujan MD [address] [phone] Sepsis, unspecified organism (CMS/HCC V24, CMS/HCC V28) [...] LAB CHEMISTRY METHOD 10/18/2024 1:15 PM EDT [facility] ([facility]) [facility] Potassium 4.0 3.5 - 5.5 [...] Result [facility] [address] [place] [address], [place] [phone] * (ABNORMAL) Complete blood count (10/18/2024 9:03 AM EDT) [facility] WBC 5.9 4.8 - 10.8 K/mcL LAB [...] FL LAB HEMETOLOGY [facility] MCH 30.1 27.0 - [...] FL LAB HEMETOLOGY METHOD [facility] NRBC 0.0 <1.0 % [...] Result [facility] [address] [place] [address], documented in this encounter Visit Diagnoses Diagnosis Sepsis, unspecified organism (CMS/HCC V24, CMS/HCC V28) documented in this encounter Care Teams Finger Buffs Assembler Relationship Specialty Start Date End Date Tram Álvarez MD 2 [facility] , [address] [place] [address] Physician Associ D/B/A: [facility] [place] PCP - General Internal Medicine 03/30/18 documented as of this encounter
--- OUTSIDE RECORDS SUMMARY | 2025-04-12 10:12 | XMS_ITS | Clinical Summary ---
Author Organization [facility] Address [address] [place] [address] Care Team Providers Care Broadcast Operations Technician Name Role Phone Sade Dykes PA-C Primary Care Provider [phone] Source Comments PLEASE NOTE, if this patient [...] 60 Tab 0 12/01/19 14 Active Acidophilus-Pectin, [place] 25 million-100 cell-mg tabIndications:Dive rticulosis Take 1 tablet by mouth 2 (two) times daily. As directed by rolloff truck driver 100 tablet 3 01/31/20 14 Active benazepril [...] Plan of Treatment Not on file Insurance [facility] [employer] Care Teams Broadcast Operations Technician Relationship Specialty Start Date End Date Sade Dykes PA-C [address] [place] [address] [facility] - General 04/14/13
--- OUTSIDE RECORDS SUMMARY | 2025-04-12 10:13 | XMS_ITS | Encounter Summary ---
Author Organization [facility] Address [address] [place] [address] Care Team Providers Care Screening Nurse Name Role Phone Tram Álvarez MD Primary Care Provider [phone] Encounter Details Date Type Department Care Team (Late st Contact Info) Description 09/30/2024 Lab Requisition [facility] - Main Lab [address] [place] [address] Prince Le MD 38 [facility] 204 [place], [address] Type 2 diabetes mellitus without complications [...] Resul t [facility] [address] [place] [address], [place] [phone] * (ABNORMAL) Comprehensive metabolic panel (10/01/2024 8:01 [...] Resul t [facility] [address] [place] [address], * (ABNORMAL) Complete blood count (10/01/2024 8:01 [...] MD LAB BLOOD ORDERABLES [facility]) [facility] [address] [place] [address], documented in this encounter Visit Diagnoses Diagnosis Type 2 diabetes mellitus without complications (CMS/HCC V24, CMS/HCC V28) documented in this encounter Care Teams Screening Nurse Relationship Specialty Start Date End Date Tram Álvarez MD 2 [facility] , [address] Physician Associ D/B/A: [facility] [place], [place] PCP - General Internal Medicine 03/30/18 documented as of this encounter
--- OUTSIDE RECORDS SUMMARY | 2025-04-12 10:13 | XMS_ITS | Encounter Summary ---
Author Organization [facility] Address [address] [place] [address] Care Team Providers Care Rn Nursery Name Role Phone Tram Álvarez MD Primary Care Provider [phone] Encounter Details Date Type Department Care Team (Late st Contact Info) Description 11/09/2024 Lab Requisition [facility] - Main Lab 299 [facility] [place] [address] Prince Le MD 38 [facility] 204 [place], [address] Hyperlipidemia, unspecified Social History Tobacco Use [...] unspecified documented in this encounter Care Teams Rn Nursery Relationship Specialty Start Date End Date Tram Álvarez MD [address] [place] [address] , [address] [facility] Physician Associ D/B/A: [facility] [place], [place] PCP - General Internal Medicine 03/30/18 documented as of this encounter
--- OUTSIDE RECORDS SUMMARY | 2025-04-12 10:13 | XMS_ITS | Encounter Summary ---
Author Organization [facility] Address [address] [place] [address] Care Team Providers Care Foreman/Project Manager Name Role Phone Tram Álvarez MD Primary Care Provider Encounter Details Date Type Department Care Team (Late st Contact Info) Description 11/05/2024 Lab Requisition [facility] - Main Lab 299 [facility] [place] [address] Preeti Lujan MD [address] [phone] Pneumonia, unspecified organism Social History Tobacco Use [...] mmol/L LAB CHEMISTRY METHOD 11/05/2024 11:23 AM [facility] Anion Gap 11 3 - 11 LAB CHEMISTRY METHOD 11/05/2024 11:23 AM [facility] Glucose 121(H) 70 - 100 mg/dL LAB CHEMISTRY METHOD 11/05/2024 11:23 AM [facility] BUN 22 5 - 25 mg/dL LAB CHEMISTRY METHOD 11/05/2024 11:23 AM [facility] Creatinine 0.58(L) 0.70 - 1.30 mg/dL LAB CHEMISTRY METHOD 11/05/2024 11:23 AM [facility] LAB eGFR 106 >=60 mL/min/1. 73m2 LAB CHEMISTRY METHOD 11/05/2024 11:23 AM [facility] LAB Comment:Calculation based on the Chronic Kidney Disease Epidemiology Collaboration (CKD-EPI) equation refit without adjustment for race. BUN/Creatinine Ratio 37.9 LAB CHEMISTRY METHOD 11/05/2024 11:23 AM [facility] Calcium 9.3 8.5 - 10.5 mg/dL LAB CHEMISTRY METHOD 11/05/2024 11:23 AM [facility] Blood Venous blood specimen / Unknown Venipuncture / Unknown 11/05/2024 8:07 AM EDT 11/05/2024 9:58 AM EDT us Preeti Lujan MD LAB BLOOD ORDERABLES Fin al Result [facility] [address] [place] [address], documented in this encounter Visit Diagnoses Diagnosis Pneumonia, unspecified organism documented in this encounter Care Teams Foreman/Project Manager Relationship Specialty Start Date End Date Tram Álvarez MD 2 [facility] , [address] Physician Associ D/B/A: [facility] [place] Duque PCP - General Internal Medicine 03/30/18 documented as of this encounter
--- OUTSIDE RECORDS SUMMARY | 2025-04-12 10:13 | XMS_ITS | Encounter Summary ---
Author Organization [facility] Address [address] [place] [address] Care Team Providers Care Sample Maker Hand Name Role Phone Tram Álvarez MD Primary Care Provider [phone] Encounter Details Date Type Department Care Team (Late st Contact Info) Description 11/11/2024 Lab Requisition [facility] - Main Lab [address] [place] [address] Preeti Lujan MD [address] [phone] Chronic kidney disease, unspecified Social History Tobacco [...] LAB CHEMISTRY METHOD 11/11/2024 11:32 AM EDT [facility] Potassium 4.2 3.5 - 5.5 mmol/L LAB CHEMISTRY METHOD 11/11/2024 11:32 AM EDT [facility] Chloride 110 96 - 110 mmol/L LAB CHEMISTRY METHOD 11/11/2024 11:32 AM [facility] CO2 22 21 - 32 mmol/L LAB CHEMISTRY METHOD 11/11/2024 11:32 AM [facility] Anion Gap 9 3 - 11 LAB CHEMISTRY METHOD 11/11/2024 11:32 AM [facility] Glucose 177(H) 70 - 100 mg/dL LAB CHEMISTRY METHOD 11/11/2024 11:32 AM [facility] BUN 20 5 - 25 mg/dL LAB CHEMISTRY METHOD 11/11/2024 11:32 AM [facility] Creatinine 0.67(L) 0.70 - 1.30 mg/dL LAB CHEMISTRY METHOD 11/11/2024 11:32 AM [facility] eGFR 101 >=60 mL/min/1. 73m2 LAB CHEMISTRY METHOD 11/11/2024 11:32 AM [facility] Comment:Calculation based on the Chronic Kidney Disease Epidemiology Collaboration (CKD-EPI) equation refit without adjustment for race. BUN/Creatinine Ratio 29.9 LAB CHEMISTRY METHOD 11/11/2024 11:32 AM [facility] Calcium 8.7 8.5 - 10.5 mg/dL LAB CHEMISTRY METHOD 11/11/2024 11:32 AM [facility] Blood Venous blood specimen / Unknown Venipuncture / Unknown 11/11/2024 6:41 AM EDT 11/11/2024 9:11 AM EDT us Preeti Lujan MD LAB BLOOD ORDERABLES Fin al Result [facility] [address] [place] [address], * (ABNORMAL) Complete blood count (11/11/2024 6:41 AM EDT) WBC 8.1 4.8 - 10.8 K/mcL LAB HEMETOLOGY METHOD 11/11/2024 10:28 AM [facility] RBC 3.80(L) 4.50 - 5.50 M/mcL LAB HEMETOLOGY METHOD 11/11/2024 10:28 AM [facility] Hemoglobin 11.5(L) 13.5 - 17.5 g/dL LAB HEMETOLOGY METHOD 11/11/2024 10:28 AM [facility] Hematocrit 35.8(L) 42.0 - 54.0 % LAB HEMETOLOGY METHOD 11/11/2024 10:28 AM [facility] MCV 93.2 79.0 - 98.0 FL LAB HEMETOLOGY METHOD 11/11/2024 10:28 AM [facility] MCH 29.9 27.0 - 32.0 pcg LAB HEMETOLOGY METHOD 11/11/2024 10:28 AM [facility] MCHC 32.1 32.0 - 37.0 g/dL LAB HEMETOLOGY METHOD 11/11/2024 10:28 AM [facility] RDW 16.4(H) 11.0 - 15.0 % LAB HEMETOLOGY METHOD 11/11/2024 10:28 AM [facility] Platelets 314 130 - 400 K/mcL LAB HEMETOLOGY METHOD 11/11/2024 10:28 AM [facility] MPV 12.3(H) 7.0 - 11.0 FL LAB HEMETOLOGY METHOD 11/11/2024 10:28 AM [facility] NRBC 0.0 <1.0 % LAB HEMETOLOGY METHOD 11/11/2024 10:28 AM [facility] NRBC Absolute 0.00 <0.10 K/mcL LAB HEMETOLOGY METHOD 11/11/2024 10:28 AM EDT [facility] Blood Venous blood specimen / Unknown Venipuncture / Unknown 11/11/2024 6:41 AM EDT 11/11/2024 9:11 AM EDT us Preeti Lujan MD LAB BLOOD ORDERABLES Fin al Result [facility] [address] [place] [address], documented in this encounter Visit Diagnoses Diagnosis Chronic kidney disease, unspecified documented in this encounter Care Teams Sample Maker Hand Relationship Specialty Start Date End Date Tram Álvarez MD 2 [facility] , [address] Physician Associ D/B/A: [facility] [place], [place] PCP - General Internal Medicine 03/30/18 documented as of this encounter
--- OUTSIDE RECORDS SUMMARY | 2025-04-12 10:13 | XMS_ITS | Clinical Summary ---
Author Organization [facility] Address [address] [place] [address] Care Team Providers Care Labor Relations Officer Name Role Phone Tram Royal MD Primary [...] age to complete this topic Care Teams Labor Relations Officer Relationship Specialty Start Date End Date Tram Royal MD 2 [facility] , [address] [facility] Physician Associ D/B/A: [facility] [place] [address] PCP - General Internal Medicine 03/30/18
--- OUTSIDE RECORDS SUMMARY | 2025-04-12 10:13 | XMS_ITS | Encounter Summary ---
Author Organization [facility] Address [address] [place] [address] Care Team Providers Care Podiatry Professor Name Role Phone Tram Álvarez MD Primary Care Provider [phone] Encounter Details Date Type Department Care Team (Late st Contact Info) Description 10/21/2024 Lab Requisition [facility] - Main Lab 299 [facility] [place] [address] Prince Le MD 38 [facility] 204 [place], [address] Type 2 diabetes mellitus without complications [...] V28) documented in this encounter Care Teams Podiatry Professor Relationship Specialty Start Date End Date Tram Álvarez MD [address] [place] [address] , [address] [facility] Physician Associ D/B/A: [facility] [place], [place] PCP - General Internal Medicine 03/30/18 documented as of this encounter
--- OUTSIDE RECORDS SUMMARY | 2025-04-12 10:13 | XMS_ITS | Encounter Summary ---
Author Organization [facility] Address [address] [place] [address] Care Team Providers Care Head Animal Trainer Name Role Phone Tram Álvarez MD Primary Care Provider [phone] Encounter Details Date Type Department Care Team (Late st Contact Info) Description 11/11/2024 Lab Requisition [facility] - Main Lab [address] [place] [address] Shonda Brenner MD [address] [place] [phone] Unspecified abdominal pain Social History Tobacco Use [...] reflex microscopic (11/11/2024 12:00 AM EDT) Specific [place] Urine 1.014 1.003 - 1.030 LAB URINALYSIS - AUTOMATED METHOD 11/11/2024 11:33 AM EDT [facility] pH, Urine 7.0 5.0 - 8.0 pH LAB URINALYSIS - AUTOMATED METHOD 11/11/2024 11:33 AM [facility] Leukocytes, Urine Large(A) Negative LAB URINALYSIS - AUTOMATED METHOD 11/11/2024 11:33 AM [facility] Nitrite, Urine Negative Negative LAB URINALYSIS - AUTOMATED METHOD 11/11/2024 11:33 AM [facility] Protein, Urine Trace <=Trace mg/dL LAB URINALYSIS - AUTOMATED METHOD 11/11/2024 11:33 AM [facility] Glucose, Urine Negative Negative mg/dL LAB URINALYSIS - AUTOMATED METHOD 11/11/2024 11:33 AM [facility] Ketones, Urine Negative Negative mg/dL LAB URINALYSIS - AUTOMATED METHOD 11/11/2024 11:33 AM [facility] Urobilinogen, Urine 0.2 0.2 - 1.0 mg/dL LAB URINALYSIS - AUTOMATED METHOD 11/11/2024 11:33 AM [facility] Bilirubin, Urine Negative Negative LAB URINALYSIS - AUTOMATED METHOD 11/11/2024 11:33 AM [facility] Blood, Urine Negative Negative LAB URINALYSIS - AUTOMATED METHOD 11/11/2024 11:33 AM [facility] RBC, Urine 3.0 0 - 4 /HPF LAB URINALYSIS - AUTOMATED METHOD 11/11/2024 11:33 AM [facility] WBC, Urine 57.5(H) 0 - 4 /HPF LAB URINALYSIS - AUTOMATED METHOD 11/11/2024 11:33 AM [facility] Squamous Epithelial, Urine >100(H) 0 - 60 /LPF LAB URINALYSIS - AUTOMATED METHOD 11/11/2024 11:33 AM [facility] Bacteria, Urine Negative Negative /HPF LAB URINALYSIS - AUTOMATED METHOD 11/11/2024 11:33 AM EDT [facility] Hyaline Casts, Urine 2.0 0 - 3 /LPF LAB URINALYSIS - AUTOMATED METHOD 11/11/2024 11:33 AM EDT [facility] Urine Urine specimen obtained by clean catch procedure / Unknown Non-blood Collection / Unknown 11/11/2024 11/11/2024 9:44 AM EDT us Shonda Brenner MD LAB URINE ORDERABLES Final Resu lt Performing Organization Address [facility]/ZIP Co de Phone Number [facility] [address] [place] [address], [place] [phone] * Culture urine (11/11/2024 12:00 AM EDT) Culture, Urine <10,000 CFU/mL gram negative bacilli, insignificant count, no further workup 11/12/2024 8:43 AM EDT [facility] Urine Urine specimen obtained by clean catch procedure / Unknown Non-blood Collection / Unknown 11/11/2024 11/11/2024 9:44 AM EDT us Shonda Brenner MD LAB MICROBIOLOGY - GENERAL ORDE RABLES Final Result Performing Organization Address [facility]/ZIP Co de Phone Number [facility] [address] [place] [address], [place] [phone] documented in this encounter Visit Diagnoses Diagnosis Unspecified abdominal pain documented in this encounter Care Teams Head Animal Trainer Relationship Specialty Start Date End Date Tram Álvarez MD 2 [facility] [address] Physician Associ D/B/A: [facility] JAS Duque PCP - General Internal Medicine 03/30/18 documented as of this encounter
--- OUTSIDE RECORDS SUMMARY | 2025-04-12 10:13 | XMS_ITS | Encounter Summary ---
Author Organization [facility] Address [address] [place] [address] Care Team Providers Care Supervisor Corduroy Cutting Name Role Phone Tram Álvarez MD Primary Care Provider Encounter Details Date Type Department Care Team (Late st Contact Info) Description 11/18/[address] [facility] - Main Lab 299 [facility] [place] [address] Preeti Lujan MD [address] [phone] Chronic kidney disease, stage 3 unspecified (CMS/HCC [...] LAB CHEMISTRY METHOD 11/18/2024 10:12 AM EDT [facility] ([facility]) [facility] Potassium 4.6 3.5 - 5.5 mmol/L LAB CHEMISTRY METHOD 11/18/2024 10:12 AM [facility] Chloride 112(H) 96 - 110 mmol/L LAB CHEMISTRY METHOD 11/18/2024 10:12 AM [facility] CO2 25 21 - 32 mmol/L LAB CHEMISTRY METHOD 11/18/2024 10:12 AM [facility] Anion Gap 6 3 - 11 LAB CHEMISTRY METHOD 11/18/2024 10:12 AM [facility] Glucose 105(H) 70 - 100 mg/dL LAB CHEMISTRY METHOD 11/18/2024 10:12 AM [facility] BUN 26(H) 5 - 25 mg/dL LAB CHEMISTRY METHOD 11/18/2024 10:12 AM [facility] Creatinine 0.63(L) 0.70 - 1.30 mg/dL LAB CHEMISTRY METHOD 11/18/2024 10:12 AM [facility] LAB eGFR 103 >=60 mL/min/1. 73m2 LAB CHEMISTRY METHOD 11/18/2024 10:12 AM [facility] LAB Comment:Calculation based on the Chronic Kidney Disease Epidemiology Collaboration (CKD-EPI) equation refit without adjustment for race. BUN/Creatinine Ratio 41.3 LAB CHEMISTRY METHOD 11/18/2024 10:12 AM [facility] Calcium 8.8 8.5 - 10.5 mg/dL LAB CHEMISTRY METHOD 11/18/2024 10:12 AM [facility] Blood Venous blood specimen / Unknown Venipuncture / Unknown 11/18/2024 6:05 AM EDT 11/18/2024 9:23 AM EDT us Preeti Lujan MD LAB BLOOD ORDERABLES Fin al Result [facility] [address] [place] [address], documented in this encounter Visit Diagnoses Diagnosis Chronic kidney disease, stage 3 unspecified (CMS/[facility] V24, [facility] V28) Spinal stenosis, lumbar region without neurogenic claudication documented in this encounter Care Teams Supervisor Corduroy Cutting Relationship Specialty Start Date End Date Tram Álvarez MD 2 [facility] , [address] [place] [address] Physician Associ D/B/A: [facility] JAS Duque PCP - General Internal Medicine 03/30/18 documented as of this encounter
--- OUTSIDE RECORDS SUMMARY | 2025-04-12 10:13 | XMS_ITS | Encounter Summary ---
Author Organization [facility] Address [address] [place] [address] Care Team Providers Care Powder Guard Name Role Phone Tram Álvarez MD Primary Care Provider [phone] Encounter Details Date Type Department Care Team (Late st Contact Info) Description 05/28/2024 Lab Requisition [facility] - Main Lab [address] [place] [address] Prince Le MD 38 [facility] [address] [place], [address] Essential (primary) hypertension Social History Tobacco [...] LAB CHEMISTRY METHOD 05/31/2024 11:37 AM EST [facility] Potassium 4.5 3.5 - 5.5 mmol/L LAB CHEMISTRY METHOD 05/31/2024 11:37 AM EST [facility] Chloride 108 96 - [...] Resul t [facility] [address] [place] [address], * (ABNORMAL) Complete blood count (05/31/2024 7:20 [...] LAB BLOOD ORDERABLES Final Resul t [facility]) [facility] [address] [place] [address], [place] [phone] documented in this encounter Visit Diagnoses Diagnosis Essential (primary) hypertension Unspecified essential hypertension documented in this encounter Care Teams Powder Guard Relationship Specialty Start Date End Date Tram Álvarez MD 2 [facility] , [address] [facility] Physician Associ D/B/A: [facility] [place], [place] PCP - General Internal Medicine 03/30/18 documented as of this encounter
--- OUTSIDE RECORDS SUMMARY | 2025-04-12 10:13 | XMS_ITS | Encounter Summary ---
Author Organization [facility] Address [address] [place] [address] Care Team Providers Care Orthopedic Dentist Name Role Phone Tram Álvarez MD Primary Care Provider [phone] Encounter Details Date Type Department Care Team (Late st Contact Info) Description 10/22/[address] [facility] - Main Lab [address] [place] [address] Preeti Lujan MD [address] [phone] Type 2 diabetes mellitus without complications (CMS/HCC [...] 2 diabetes mellitus without complications (CMS/HCC V24, CMS/[facility] V28) documented in this encounter Results * Hemoglobin A1c (10/22/2024 6:43 AM EDT) Hemoglobin A1C 5.5 <6.5 % LAB CHEMISTRY METHOD 10/22/2024 2:03 PM EDT [facility] Mean Bld Glu Estim. 111 mg/dL LAB CHEMISTRY METHOD 10/22/2024 2:03 PM EDT [facility] Blood Venous blood specimen / Unknown Venipuncture / Unknown 10/22/2024 6:43 AM EDT 10/22/2024 9:05 AM EDT us Preeti Lujan MD LAB BLOOD ORDERABLES Fin al Result [facility] ([facility]) [facility] [address] [place] [address], documented in this encounter Visit Diagnoses Diagnosis Type 2 diabetes mellitus without complications (CMS/HCC V24, CMS/HCC V28) documented in this encounter Care Teams Orthopedic Dentist Relationship Specialty Start Date End Date Tram Álvarez MD 2 [facility] , [address] Physician Associ D/B/A: [facility] JAS Duque PCP - General Internal Medicine 03/30/18 documented as of this encounter
--- OUTSIDE RECORDS SUMMARY | 2025-04-12 10:13 | XMS_ITS | Encounter Summary ---
Author Organization [facility] Address [address] [place] [address] Care Team Providers Care Fire Code Inspector Name Role Phone Tram Álvarez MD Primary Care Provider [phone] Encounter Details Date Type Department Care Team (Late st Contact Info) Description 09/23/2024 Lab Requisition [facility] - Main Lab [address] [place] [address] Prince Le MD 38 [facility] [address] [place], [address] Type 2 diabetes mellitus without complications [...] CHEMISTRY METHOD 09/24/2024 12:40 PM EDT [facility] Blood Venous blood specimen / Unknown Venipuncture / Unknown 09/24/2024 5:45 AM EDT 09/24/2024 9:53 AM EDT us Prince Le MD LAB BLOOD ORDERABLES Final Resul t [facility] [address] [place] [address], [place] [phone] * (ABNORMAL) Comprehensive metabolic panel (09/24/2024 5:45 AM EDT) Sodium 140 133 - 145 mmol/L LAB CHEMISTRY METHOD 09/24/2024 12:42 PM [facility] Potassium 4.8 3.5 - 5.5 mmol/L LAB CHEMISTRY METHOD 09/24/2024 12:42 PM [facility] Chloride 107 96 - 110 mmol/L LAB CHEMISTRY METHOD 09/24/2024 12:42 PM [facility] CO2 27 21 - 32 mmol/L LAB CHEMISTRY METHOD 09/24/2024 12:42 PM [facility] Anion Gap 6 3 - 11 LAB CHEMISTRY METHOD 09/24/2024 12:42 PM [facility] Glucose 81 70 - 100 mg/dL LAB CHEMISTRY METHOD 09/24/2024 12:42 PM [facility] BUN 18 5 - 25 mg/dL LAB CHEMISTRY METHOD 09/24/2024 12:42 PM [facility] Creatinine 0.80 0.70 - 1.30 mg/dL LAB CHEMISTRY METHOD 09/24/2024 12:42 PM [facility] eGFR 96 >=60 mL/min/1. 73m2 LAB CHEMISTRY METHOD 09/24/2024 12:42 PM [facility] Comment:Calculation based on the Chronic Kidney Disease Epidemiology Collaboration (CKD-EPI) equation refit without adjustment for race. BUN/Creatinine Ratio 22.5 LAB CHEMISTRY METHOD 09/24/2024 12:42 PM T [facility] Calcium 8.9 8.5 - 10.5 mg/dL LAB CHEMISTRY METHOD 09/24/2024 12:42 PM [facility] AST (SGOT) 15 10 - 42 unit/L LAB CHEMISTRY METHOD 09/24/2024 12:42 PM [facility] ALT (SGPT) 16 10 - 60 unit/L LAB CHEMISTRY METHOD 09/24/2024 12:42 PM [facility] Alkaline Phosphatase 51 42 - 121 unit/L LAB CHEMISTRY METHOD 09/24/2024 12:42 PM [facility] Total Protein 6.1 6.0 - 8.0 g/dL LAB CHEMISTRY METHOD 09/24/2024 12:42 PM [facility] Albumin 2.7(L) 3.2 - 5.0 g/dL LAB CHEMISTRY METHOD 09/24/2024 12:42 PM [facility] Total Bilirubin 0.4 0.0 - 1.4 mg/dL LAB CHEMISTRY METHOD 09/24/2024 12:42 PM [facility] Blood Venous blood specimen / Unknown Venipuncture / Unknown 09/24/2024 5:45 AM EDT 09/24/2024 9:53 AM EDT us Prince Le MD LAB BLOOD ORDERABLES Final Resul t [facility] [address] [place] [address], * (ABNORMAL) Complete blood count (09/24/2024 5:45 AM EDT) WBC 7.3 4.8 - 10.8 K/mcL LAB HEMETOLOGY METHOD 09/24/2024 10:05 AM [facility] RBC 3.70(L) 4.50 - 5.50 M/mcL LAB HEMETOLOGY METHOD 09/24/2024 10:05 AM [facility] Hemoglobin 11.0(L) 13.5 - 17.5 g/dL LAB HEMETOLOGY METHOD 09/24/2024 10:05 AM [facility] Hematocrit 35.4(L) 42.0 - 54.0 % LAB HEMETOLOGY METHOD 09/24/2024 10:05 AM [facility] MCV 96.2 79.0 - 98.0 FL LAB HEMETOLOGY METHOD 09/24/2024 10:05 AM [facility] MCH 29.9 27.0 - 32.0 pcg LAB HEMETOLOGY METHOD 09/24/2024 10:05 AM [facility] MCHC 31.1(L) 32.0 - 37.0 g/dL LAB HEMETOLOGY METHOD 09/24/2024 10:05 AM [facility] RDW 16.4(H) 11.0 - 15.0 % LAB HEMETOLOGY METHOD 09/24/2024 10:05 AM [facility] Platelets 480(H) 130 - 400 K/mcL LAB HEMETOLOGY METHOD 09/24/2024 10:05 AM [facility] MPV 12.1(H) 7.0 - 11.0 FL LAB HEMETOLOGY METHOD 09/24/2024 10:05 AM [facility] NRBC 0.0 <1.0 % LAB HEMETOLOGY METHOD 09/24/2024 10:05 AM [facility] NRBC Absolute 0.00 <0.10 K/mcL LAB HEMETOLOGY METHOD 09/24/2024 10:05 AM [facility] Blood Venous blood specimen / Unknown Venipuncture / Unknown 09/24/2024 5:45 AM EDT 09/24/2024 9:53 AM EDT us Prince Le MD LAB BLOOD ORDERABLES [facility] [address] [place] [address], documented in this encounter Visit Diagnoses Diagnosis Type 2 diabetes mellitus without complications (CMS/HCC V24, CMS/HCC V28) documented in this encounter Care Teams Fire Code Inspector Relationship Specialty Start Date End Date Tram Álvarez MD 2 [facility] , [address] Physician Associ D/B/A: [facility] JAS Duque PCP - General Internal Medicine 03/30/18 documented as of this encounter
--- OUTSIDE RECORDS SUMMARY | 2025-04-12 10:13 | XMS_ITS | Encounter Summary ---
Author Organization [facility] Address [address] [place] [address] Care Team Providers Care Household Assistant Name Role Phone Tram Álvarez MD Primary Care Provider Encounter Details Date Type Department Care Team (Late st Contact Info) Description 09/16/2024 Lab Requisition [facility] - Main Lab 299 [facility] [place] [address] Prince Le MD 38 [facility] [address] [place], [address] Type 2 diabetes mellitus without complications [...] mg/dL LAB CHEMISTRY METHOD 09/17/2024 11:32 AM [facility] Blood Venous blood specimen / Unknown Venipuncture / Unknown 09/17/2024 8:06 AM EDT 09/17/2024 10:22 AM EDT us Prince Le MD LAB BLOOD ORDERABLES Final Resul t [facility] [address] [place] [address], [place] [phone] * (ABNORMAL) Comprehensive metabolic panel (09/17/2024 8:06 AM EDT) Sodium 139 133 - 145 mmol/L LAB CHEMISTRY METHOD 09/17/2024 11:27 AM [facility] Potassium 4.6 3.5 - 5.5 mmol/L LAB CHEMISTRY METHOD 09/17/2024 11:27 AM [facility] Chloride 103 96 - 110 mmol/L LAB CHEMISTRY METHOD 09/17/2024 11:27 AM [facility] CO2 30 21 - 32 mmol/L LAB CHEMISTRY METHOD 09/17/2024 11:27 AM [facility] Anion Gap 6 3 - 11 LAB CHEMISTRY METHOD 09/17/2024 11:27 AM [facility] Glucose 93 70 - 100 mg/dL LAB CHEMISTRY METHOD 09/17/2024 11:27 AM [facility] BUN 21 5 - 25 mg/dL LAB CHEMISTRY METHOD 09/17/2024 11:27 AM [facility] Creatinine 0.97 0.70 - 1.30 mg/dL LAB CHEMISTRY METHOD 09/17/2024 11:27 AM [facility] eGFR 85 >=60 mL/min/1. 73m2 LAB CHEMISTRY METHOD 09/17/2024 11:27 AM [facility] Comment:Calculation based on the Chronic Kidney Disease Epidemiology Collaboration (CKD-EPI) equation refit without adjustment for race. BUN/Creatinine Ratio 21.6 LAB CHEMISTRY METHOD 09/17/2024 11:27 AM [facility] Calcium 9.0 8.5 - 10.5 mg/dL LAB CHEMISTRY METHOD 09/17/2024 11:27 AM [facility] AST (SGOT) 20 10 - 42 unit/L LAB CHEMISTRY METHOD 09/17/2024 11:27 AM [facility] ALT (SGPT) 19 10 - 60 unit/L LAB CHEMISTRY METHOD 09/17/2024 11:27 AM [facility] Alkaline Phosphatase 67 42 - 121 unit/L LAB CHEMISTRY METHOD 09/17/2024 11:27 AM [facility] Total Protein 6.1 6.0 - 8.0 g/dL LAB CHEMISTRY METHOD 09/17/2024 11:27 AM [facility] Albumin 2.8(L) 3.2 - 5.0 g/dL LAB CHEMISTRY METHOD 09/17/2024 11:27 AM [facility] Total Bilirubin 0.4 0.0 - 1.4 mg/dL LAB CHEMISTRY METHOD 09/17/2024 11:27 AM [facility] Blood Venous blood specimen / Unknown Venipuncture / Unknown 09/17/2024 8:06 AM EDT 09/17/2024 10:22 AM EDT us Prince Le MD LAB BLOOD ORDERABLES Final Resul t [facility] [address] [place] [address], * (ABNORMAL) Complete blood count (09/17/2024 8:06 AM EDT) WBC 9.2 4.8 - 10.8 K/mcL LAB HEMETOLOGY METHOD 09/17/2024 10:35 AM [facility] RBC 3.80(L) 4.50 - 5.50 M/mcL LAB HEMETOLOGY METHOD 09/17/2024 10:35 AM [facility] Hemoglobin 11.3(L) 13.5 - 17.5 g/dL LAB HEMETOLOGY METHOD 09/17/2024 10:35 AM [facility] Hematocrit 35.1(L) 42.0 - 54.0 % LAB HEMETOLOGY METHOD 09/17/2024 10:35 AM [facility] MCV 93.6 79.0 - 98.0 FL LAB HEMETOLOGY METHOD 09/17/2024 10:35 AM [facility] MCH 30.1 27.0 - 32.0 pcg LAB HEMETOLOGY METHOD 09/17/2024 10:35 AM [facility] MCHC 32.2 32.0 - 37.0 g/dL LAB HEMETOLOGY METHOD 09/17/2024 10:35 AM [facility] RDW 17.5(H) 11.0 - 15.0 % LAB HEMETOLOGY METHOD 09/17/2024 10:35 AM [facility] Platelets 352 130 - 400 K/mcL LAB HEMETOLOGY METHOD 09/17/2024 10:35 AM [facility] MPV 11.5(H) 7.0 - 11.0 FL LAB HEMETOLOGY METHOD 09/17/2024 10:35 AM [facility] NRBC 0.0 <1.0 % LAB HEMETOLOGY METHOD 09/17/2024 10:35 AM [facility] NRBC Absolute 0.00 <0.10 K/mcL LAB HEMETOLOGY METHOD 09/17/2024 10:35 AM [facility] Blood Venous blood specimen / Unknown Venipuncture / Unknown 09/17/2024 8:06 AM EDT 09/17/2024 10:22 AM EDT us Prince Le MD LAB BLOOD ORDERABLES Final Resul t [facility] [address] [place] [address], documented in this encounter Visit Diagnoses Diagnosis Type 2 diabetes mellitus without complications (CMS/HCC V24, CMS/HCC V28) documented in this encounter Care Teams Household Assistant Relationship Specialty Start Date End Date Tram Álvarez MD 2 [facility] , [address] Physician Associ D/B/A: [facility] [place], [place] PCP - General Internal Medicine 03/30/18 documented as of this encounter
== END 2025-04-12 09:40 | disposition home or self-care (01) ==
LOC: HO.HKA 09:13
PROVIDERS: PCP Internal Medicine; Visit Provider Internal Medicine Hypertension Specialist
DX: E78.5 Hyperlipidemia, unspecified (principal); E11.42 Type 2 diabetes mellitus with diabetic polyneuropathy; Z79.4 Long term (current) use of insulin; I10 Essential (primary) hypertension; F33.0 Major depressive disorder, recurrent, mild; M48.062 Spinal stenosis, lumbar region with neurogenic claudication
CPT/HCPCS: 99214

== ENCOUNTER → 2025-04-12 09:12 | Outpatient (BNVA) | payer OTHER, SELFPAY | PROVIDERS: PCP Internal Medicine; Visit Provider Internal Medicine Hypertension Specialist | DX: E11.42 Type 2 diabetes mellitus with diabetic polyneuropathy (principal); E11.29 Type 2 diabetes mellitus with other diabetic kidney complication; N18.30 Chronic kidney disease, stage 3 unspecified; I10 Essential (primary) hypertension; E78.5 Hyperlipidemia, unspecified; M48.062 Spinal stenosis, lumbar region with neurogenic claudication; F33.0 Major depressive disorder, recurrent, mild; Z79.4 Long term (current) use of insulin | CPT/HCPCS: 99212 ==

== ENCOUNTER 2025-05-10 13:57 | Outpatient (REF) | payer OTHER, SELFPAY ==
--- NOTE | ~2025-05-10 | US_ITS ---
EXAMINATION: US TRIPLEX LOWER EXTREMITY, BILATERAL CLINICAL INFORMATION: Prolonged stasis COMPARISON: None available. TECHNIQUE: Color-flow triplex imaging with spectral analysis and compression Doppler were performed on the bilateral lower extremities. FINDINGS: Respiratory variation, normal compression and augmented flow are noted throughout the bilateral lower extremities. The visualized common femoral vein, superficial femoral vein, profunda femoral vein, popliteal vein and midcalf peroneal and posterior tibial venous segments show no evidence of deep venous thrombosis bilaterally. Of note, the left peroneal vein is not visualized/evaluated. There is no Coreas's cyst. In the area of clinical concern along the medial aspect of the knee, 7 x 4 x 6 mm focus in the soft tissues, with heterogeneous echotexture, with mixed isoechoic and hypoechoic echotexture, and some internal vascularity. IMPRESSION No evidence of deep venous thrombosis involving the visualized lower extremity vasculature. Of note, the left peroneal vein is not visualized. If the patient's symptoms persist, followup ultrasound in 5 days 7 days might be of value to exclude proximal propagation from a non-visualized calf vein.. The palpable abnormality in the medial knee corresponds with a 7 mm focus in the soft tissues, with internal vascularity. This of indeterminate etiology. Clinically correlate. Further evaluation with MRI without and with contrast as clinically indicated. Electronically signed by: Monster Spangler MD 05/10/2025 03:09 PM [facility]
--- OUTSIDE RECORDS SUMMARY | 2025-05-10 16:59 | XMS_ITS | Encounter Summary ---
Author Organization [facility] Address [address] [place] [address] Care Team Providers Care Cashier And Waiter/Waitress Name Role Phone Tram Álvarez MD Primary Care Provider [phone] Encounter Details Date Type Department Care Team (Late st Contact Info) Description 08/05/2024 Lab Requisition [facility] - Main Lab 299 [facility] [place] [address] Prince Le MD 38 [facility] [address] [place], [address] Type 2 diabetes mellitus without complications [...] Resul t [facility] [address] [place] [address], [place] [phone] * Comprehensive metabolic panel (08/06/2024 6:49 AM [...] Resul t [facility] [address] [place] [address], * (ABNORMAL) Complete blood count (08/06/2024 6:49 AM EST) WBC 8.2 4.8 - 10.8 K/mcL LAB HEMETOLOGY METHOD 08/06/2024 9:12 AM [facility] RBC 4.50 [...] ORDERABLES Final Resul t [facility] [address] [place] [address], [place] [phone] documented in this encounter Visit Diagnoses Diagnosis Type 2 diabetes mellitus without complications (CMS/HCC V24, CMS/HCC V28) documented in this encounter Care Teams Cashier And Waiter/Waitress Relationship Specialty Start Date End Date Tram Álvarez MD 2 [facility] , [address] [facility] Physician Associ D/B/A: [facility] [place] PCP - General Internal Medicine 03/30/18 documented as of this encounter
--- OUTSIDE RECORDS SUMMARY | 2025-05-10 16:59 | XMS_ITS | Encounter Summary ---
Author Organization [facility] Address [address] [place] [address] Care Team Providers Care Central Supply Technician Supervisor Name Role Phone Tram Álvarez MD Primary Care Provider [phone] Encounter Details Date Type Department Care Team (Late st Contact Info) Description 04/27/2025 Lab Requisition [facility] - Main Lab [address] [place] [address] Preeti Lujan MD [address] [id number] Essential (primary) hypertension; Other disorders of electrolyte and fluid balance, not elsewhere classified Social History Tobacco Use Types Packs/Day Years [...] Associated Diagnosis Comments COMPLETE BLOOD COUNT Routine 04/27/2025 6:36 AM EDT Essential (primary) hypertension Other disorders of electrolyte and fluid balance, not elsewhere classified BASIC METABOLIC PANEL Routine 04/27/2025 6:36 AM EDT Essential (primary) hypertension Other disorders of electrolyte and fluid balance, not elsewhere classified documented in this encounter Results * (ABNORMAL) Basic metabolic panel (04/27/2025 6:36 AM EDT) Sodium 139 133 - 145 mmol/L LAB CHEMISTRY METHOD 04/27/2025 10:49 AM EDT [facility] Potassium 4.8 3.5 - 5.5 mmol/L LAB CHEMISTRY METHOD 04/27/2025 10:49 AM [facility] Chloride 109 96 - 110 mmol/L LAB CHEMISTRY METHOD 04/27/2025 10:49 AM [facility] CO2 26 21 - 32 mmol/L LAB CHEMISTRY METHOD 04/27/2025 10:49 AM [facility] Anion Gap 4 3 - 11 LAB CHEMISTRY METHOD 04/27/2025 10:49 AM [facility] Glucose 196(H) 70 - 100 mg/dL LAB CHEMISTRY METHOD 04/27/2025 10:49 AM [facility] BUN 26(H) 5 - 25 mg/dL LAB CHEMISTRY METHOD 04/27/2025 10:49 AM [facility] Creatinine 1.03 0.70 - 1.30 mg/dL LAB CHEMISTRY METHOD 04/27/2025 10:49 AM [facility] eGFR 79 >=60 mL/min/1. 73m2 LAB CHEMISTRY METHOD 04/27/2025 10:49 AM [facility] Comment:Calculation based on the Chronic Kidney Disease Epidemiology Collaboration (CKD-EPI) equation refit without adjustment for race. BUN/Creatinine Ratio 25.2 LAB CHEMISTRY METHOD 04/27/2025 10:49 AM [facility] Calcium 9.2 8.5 - 10.5 mg/dL LAB CHEMISTRY METHOD 04/27/2025 10:49 AM [facility] Blood Venous blood specimen / Unknown Venipuncture / Unknown 04/27/2025 6:36 AM EDT 04/27/2025 9:12 AM EDT us Preeti Lujan MD LAB BLOOD ORDERABLES Fin al Result [facility] [address] [place] [address], * (ABNORMAL) Complete blood count (04/27/2025 6:36 AM EDT) [facility] WBC 8.1 4.8 - 10.8 K/mcL LAB HEMETOLOGY METHOD 04/27/2025 9:53 AM [facility] RBC 4.40(L) 4.50 - 5.50 M/mcL LAB HEMETOLOGY METHOD 04/27/2025 9:53 AM [facility] Hemoglobin 12.6(L) 13.5 - 17.5 g/dL LAB HEMETOLOGY METHOD 04/27/2025 9:53 AM [facility] Hematocrit 40.2(L) 42.0 - 54.0 % LAB HEMETOLOGY METHOD 04/27/2025 9:53 AM [facility] MCV 91.8 79.0 - 98.0 FL LAB HEMETOLOGY METHOD 04/27/2025 9:53 AM [facility] MCH 28.8 27.0 - 32.0 pcg LAB HEMETOLOGY METHOD 04/27/2025 9:53 AM [facility] MCHC 31.3(L) 32.0 - 37.0 g/dL LAB HEMETOLOGY METHOD 04/27/2025 9:53 AM [facility] RDW 15.0 11.0 - 15.0 % LAB HEMETOLOGY METHOD 04/27/2025 9:53 AM [facility] Platelets 230 130 - 400 K/mcL LAB HEMETOLOGY METHOD 04/27/2025 9:53 AM [facility] MPV 13.9(H) 7.0 - 11.0 FL LAB HEMETOLOGY METHOD 04/27/2025 9:53 AM [facility] NRBC 0.0 <1.0 % LAB HEMETOLOGY METHOD 04/27/2025 9:53 AM [facility] NRBC Absolute 0.00 <0.10 K/mcL LAB HEMETOLOGY METHOD 04/27/2025 9:53 AM EDT [facility] Blood Venous blood specimen / Unknown Venipuncture / Unknown 04/27/2025 6:36 AM EDT 04/27/2025 9:12 AM EDT us Preeti Lujan MD LAB BLOOD ORDERABLES Fin al Result [facility] [address] [place] [address], documented in this encounter Visit Diagnoses Diagnosis Essential (primary) hypertension Unspecified essential hypertension Other disorders of electrolyte and fluid balance, not elsewhere classified documented in this encounter Care Teams Central Supply Technician Supervisor Relationship Specialty Start Date End Date Tram Álvarez MD 2 [facility] , [address] [facility] Physician Associ D/B/A: [facility] JAS Duque PCP - General Internal Medicine 03/30/18 documented as of this encounter
--- OUTSIDE RECORDS SUMMARY | 2025-05-10 16:59 | XMS_ITS | Clinical Summary ---
Author Organization [facility] Address [address] [place] [address] Care Team Providers Care Trackless Trolley Driver Name Role Phone Sade Dykes PA-C Primary Care Provider [phone] Source Comments PLEASE NOTE, if this patient [...] 60 Tab 0 12/01/19 14 Active Acidophilus-Pectin, [place] 25 million-100 cell-mg tabIndications:Dive rticulosis Take 1 tablet by mouth 2 (two) times daily. As directed by kennel worker 100 tablet 3 01/31/20 14 Active benazepril [...] file Insurance [facility] [employer] Care Teams Trackless Trolley Driver Relationship Specialty Start Date End Date Sade Dykes PA-C [address] [place] [address] [facility] - General 04/14/13
--- OUTSIDE RECORDS SUMMARY | 2025-05-10 16:59 | XMS_ITS | Encounter Summary ---
Author Organization [facility] Address [address] [place] [address] Care Team Providers Care Moving Picture Operator Name Role Phone Tram Álvarez MD Primary Care Provider [phone] Encounter Details Date Type Department Care Team (Late st Contact Info) Description 08/19/2024 Lab Requisition [facility] - Main Lab 299 [facility] [employer] [place] [address] Prince Le MD 38 [facility] [address] [place], [address] Type 2 diabetes mellitus without complications [...] LAB CHEMISTRY METHOD 08/20/2024 11:12 AM [facility] Blood Venous blood specimen / Unknown Venipuncture / Unknown 08/20/2024 7:39 AM EST 08/20/2024 10:36 AM EST us Prince Le MD LAB BLOOD ORDERABLES Final Resul t [facility] [address] [place] [address], [place] [phone] * (ABNORMAL) Comprehensive metabolic panel (08/20/2024 7:39 AM EST) Sodium 139 133 - 145 mmol/L LAB CHEMISTRY METHOD 08/20/2024 11:11 AM [facility] Potassium 4.5 3.5 - 5.5 mmol/L LAB CHEMISTRY METHOD 08/20/2024 11:11 AM [facility] Chloride 109 96 - 110 mmol/L LAB CHEMISTRY METHOD 08/20/2024 11:11 AM [facility] CO2 26 21 - 32 mmol/L LAB CHEMISTRY METHOD 08/20/2024 11:11 AM [facility] Anion Gap 4 3 - 11 LAB CHEMISTRY METHOD 08/20/2024 11:11 AM [facility] Glucose 120(H) 70 - 100 mg/dL LAB CHEMISTRY METHOD 08/20/2024 11:11 AM [facility] BUN 22 5 - 25 mg/dL LAB CHEMISTRY METHOD 08/20/2024 11:11 AM [facility] Creatinine 0.78 0.70 - 1.30 mg/dL LAB CHEMISTRY METHOD 08/20/2024 11:11 AM [facility] eGFR 97 >=60 mL/min/1. 73m2 LAB CHEMISTRY METHOD 08/20/2024 11:11 AM [facility] Comment:Calculation based on the Chronic Kidney Disease Epidemiology Collaboration (CKD-EPI) equation refit without adjustment for race. BUN/Creatinine Ratio 28.2 LAB CHEMISTRY METHOD 08/20/2024 11:11 AM [facility] Calcium 9.3 8.5 - 10.5 mg/dL LAB CHEMISTRY METHOD 08/20/2024 11:11 AM [facility] AST (SGOT) 35 10 - 42 unit/L LAB CHEMISTRY METHOD 08/20/2024 11:11 AM [facility] ALT (SGPT) 30 10 - 60 unit/L LAB CHEMISTRY METHOD 08/20/2024 11:11 AM [facility] Alkaline Phosphatase 39(L) 42 - 121 unit/L LAB CHEMISTRY METHOD 08/20/2024 11:11 AM [facility] Total Protein 6.6 6.0 - 8.0 g/dL LAB CHEMISTRY METHOD 08/20/2024 11:11 AM [facility] Albumin 3.5 3.2 - 5.0 g/dL LAB CHEMISTRY METHOD 08/20/2024 11:11 AM [facility] Total Bilirubin 0.8 0.0 - 1.4 mg/dL LAB CHEMISTRY METHOD 08/20/2024 11:11 AM [facility] Blood Venous blood specimen / Unknown Venipuncture / Unknown 08/20/2024 7:39 AM EST 08/20/2024 10:36 AM EST us Prince Le MD LAB BLOOD ORDERABLES Final Resul t [facility] [address] [place] [address], * (ABNORMAL) Complete blood count (08/20/2024 7:39 AM EST) WBC 13.2(H) 4.8 - 10.8 K/mcL LAB HEMETOLOGY METHOD 08/20/2024 10:52 AM [facility] RBC 3.90(L) 4.50 - 5.50 M/mcL LAB HEMETOLOGY METHOD 08/20/2024 10:52 AM [facility] Hemoglobin 11.0(L) 13.5 - 17.5 g/dL LAB HEMETOLOGY METHOD 08/20/2024 10:52 AM [facility] Hematocrit 33.1(L) 42.0 - 54.0 % LAB HEMETOLOGY METHOD 08/20/2024 10:52 AM [facility] MCV 85.3 79.0 - 98.0 FL LAB HEMETOLOGY METHOD 08/20/2024 10:52 AM [facility] MCH 28.4 27.0 - 32.0 pcg LAB HEMETOLOGY METHOD 08/20/2024 10:52 AM [facility] MCHC 33.2 32.0 - 37.0 g/dL LAB HEMETOLOGY METHOD 08/20/2024 10:52 AM [facility] RDW 20.9(H) 11.0 - 15.0 % LAB HEMETOLOGY METHOD 08/20/2024 10:52 AM [facility] Platelets 329 130 - 400 K/mcL LAB HEMETOLOGY METHOD 08/20/2024 10:52 AM [facility] MPV 13.2(H) 7.0 - 11.0 FL LAB HEMETOLOGY METHOD 08/20/2024 10:52 AM [facility] NRBC 0.0 <1.0 % LAB HEMETOLOGY METHOD 08/20/2024 10:52 AM [facility] NRBC Absolute 0.00 <0.10 K/mcL LAB HEMETOLOGY METHOD 08/20/2024 10:52 AM [facility] Blood Venous blood specimen / Unknown Venipuncture / Unknown 08/20/2024 7:39 AM EST 08/20/2024 10:36 AM EST us Prince Le MD LAB BLOOD ORDERABLES Final Resul t [facility] [address] [place] [address], documented in this encounter Visit Diagnoses Diagnosis Type 2 diabetes mellitus without complications (CMS/HCC V24, CMS/HCC V28) documented in this encounter Care Teams Moving Picture Operator Relationship Specialty Start Date End Date Tram Álvarez MD 2 [facility] , [address] [facility] Physician Associ D/B/A: [facility] JAS Duque PCP - General Internal Medicine 03/30/18 documented as of this encounter
--- OUTSIDE RECORDS SUMMARY | 2025-05-10 16:59 | XMS_ITS | Encounter Summary ---
Author Organization [facility] [address] Address [address] [place] [address] Care Team Providers Care Training Analyst Name Role Phone Tram Álvarez MD Primary Care Provider [phone] Encounter Details Date Type Department Care Team (Late st Contact Info) Description 10/07/2024 Lab Requisition [facility] - Main Lab 299 [facility] [place] [address] Prince Le MD 38 [facility] [address] [place], [address] Type 2 diabetes mellitus without complications [...] K/mcL LAB HEMETOLOGY METHOD 10/07/2024 9:32 AM [facility] LAB RBC 3.80(L) 4.50 - 5.50 M/mcL LAB HEMETOLOGY METHOD 10/07/2024 9:32 AM [facility] LAB Hemoglobin 11.2(L) 13.5 - 17.5 g/dL LAB HEMETOLOGY METHOD 10/07/2024 9:32 AM [facility] LAB Hematocrit 35.1(L) 42.0 - 54.0 % LAB HEMETOLOGY METHOD 10/07/2024 9:32 AM [facility] LAB MCV 92.4 79.0 - 98.0 FL LAB HEMETOLOGY METHOD 10/07/2024 9:32 AM [facility] LAB MCH 29.5 27.0 - 32.0 pcg LAB HEMETOLOGY METHOD 10/07/2024 9:32 AM [facility] LAB MCHC 31.9(L) 32.0 - 37.0 g/dL LAB HEMETOLOGY METHOD 10/07/2024 9:32 AM [facility] LAB RDW 16.6(H) 11.0 - 15.0 % LAB HEMETOLOGY METHOD 10/07/2024 9:32 AM [facility] LAB Platelets 230 130 - 400 K/mcL LAB HEMETOLOGY METHOD 10/07/2024 9:32 AM [facility] LAB MPV 13.0(H) 7.0 - 11.0 FL LAB HEMETOLOGY METHOD 10/07/2024 9:32 AM [facility] LAB NRBC 0.0 <1.0 % LAB HEMETOLOGY METHOD 10/07/2024 9:32 AM [facility] LAB NRBC Absolute 0.00 <0.10 K/mcL LAB HEMETOLOGY METHOD 10/07/2024 9:32 AM [facility] Neutrophils Relative 82.3 % LAB HEMETOLOGY METHOD 10/07/2024 9:32 AM [facility] Lymphocytes Relative 10.0 % LAB HEMETOLOGY METHOD 10/07/2024 9:32 AM [facility] Monocytes Relative 4.6 % LAB HEMETOLOGY METHOD 10/07/2024 9:32 AM [facility] Eosinophils Relative 2.2 % LAB HEMETOLOGY METHOD 10/07/2024 9:32 AM [facility] Basophils Relative 0.3 % LAB HEMETOLOGY METHOD 10/07/2024 9:32 AM [facility] Immature Granulocytes Relative 0.6 % LAB HEMETOLOGY METHOD 10/07/2024 9:32 AM [facility] Neutrophils Absolute 14.41(H) 1.50 - 7.00 K/mcL LAB HEMETOLOGY METHOD 10/07/2024 9:32 AM [facility] Lymphocytes Absolute 1.74 1.00 - 5.00 K/mcL LAB HEMETOLOGY METHOD 10/07/2024 9:32 AM [facility] Monocytes Absolute 0.80 0.20 - 1.00 K/mcL LAB HEMETOLOGY METHOD 10/07/2024 9:32 AM [facility] Eosinophils Absolute 0.38 0.00 - 0.50 K/mcL LAB HEMETOLOGY METHOD 10/07/2024 9:32 AM [facility] Basophils Absolute 0.05 0.00 - 0.20 K/mcL LAB HEMETOLOGY METHOD 10/07/2024 9:32 AM [facility] Immature Granulocytes Absolute 0.10(H) 0.00 - 0.03 K/mcL LAB HEMETOLOGY METHOD 10/07/2024 9:32 AM [facility] Blood Venous blood specimen / Unknown Venipuncture / Unknown 10/07/2024 5:18 AM EDT 10/07/2024 8:56 AM EDT us Prince Le MD LAB BLOOD ORDERABLES Final Resul t [facility] [address] [place] [address], [place] [phone] * (ABNORMAL) Basic metabolic panel (10/07/2024 5:18 AM EDT) Sodium 132(L) 133 - 145 mmol/L LAB CHEMISTRY METHOD 10/07/2024 10:16 AM T [facility] Potassium 5.0 3.5 - 5.5 mmol/L LAB CHEMISTRY METHOD 10/07/2024 10:16 AM [facility] Chloride 99 96 - 110 mmol/L LAB CHEMISTRY METHOD 10/07/2024 10:16 AM [facility] CO2 22 21 - 32 mmol/L LAB CHEMISTRY METHOD 10/07/2024 10:16 AM [facility] Anion Gap 11 3 - 11 LAB CHEMISTRY METHOD 10/07/2024 10:16 AM [facility] Glucose 82 70 - 100 mg/dL LAB CHEMISTRY METHOD 10/07/2024 10:16 AM [facility] BUN 54(H) 5 - 25 mg/dL LAB CHEMISTRY METHOD 10/07/2024 10:16 AM [facility] Creatinine 2.44(H) 0.70 - 1.30 mg/dL LAB CHEMISTRY METHOD 10/07/2024 10:16 AM [facility] eGFR 28(L) >=60 mL/min/1. 73m2 LAB CHEMISTRY METHOD 10/07/2024 10:16 AM [facility] Comment:Calculation based on the Chronic Kidney Disease Epidemiology Collaboration (CKD-EPI) equation refit without adjustment for race. BUN/Creatinine Ratio 22.1 LAB CHEMISTRY METHOD 10/07/2024 10:16 AM EDT [facility] Calcium 8.9 8.5 - 10.5 mg/dL LAB CHEMISTRY METHOD 10/07/2024 10:16 AM EDT [facility] Blood Venous blood specimen / Unknown Venipuncture / Unknown 10/07/2024 5:18 AM EDT 10/07/2024 8:56 AM EDT us Prince Le MD LAB BLOOD ORDERABLES Final Resul t [facility] [address] [place] [address], documented in this encounter Visit Diagnoses Diagnosis Type 2 diabetes mellitus without complications (CMS/HCC V24, CMS/HCC V28) documented in this encounter Care Teams Training Analyst Relationship Specialty Start Date End Date Tram Álvarez MD 2 [facility] , [address] [facility] Physician Associ D/B/A: [facility] [place], [place] PCP - General Internal Medicine 03/30/18 documented as of this encounter
--- OUTSIDE RECORDS SUMMARY | 2025-05-10 16:59 | XMS_ITS | Clinical Summary ---
Author Organization [facility] Address [address] [place] [address] Care Team Providers Care Control Room Tender Name Role Phone Tram Royal MD Primary Care Provider [phone] Allergies Active Allergy Reactions Criticality Noted Date [...] % PVNMA 04/28/2020 us [facility] [id number] LICITED RESULTS Final Result PVNMA from Last 3 Months or Most Recently Relevant to Health Maintenance Insurance [address] [place] [id number] [place] [address] [place] [phone] [place] Care Teams Control Room Tender Relationship Specialty Start Date End Date Tram Royal MD [address] [place] PCP - General 07/17/20
--- OUTSIDE RECORDS SUMMARY | 2025-05-10 16:59 | XMS_ITS | Encounter Summary ---
Author Organization [facility] Address [address] [place] [address] Care Team Providers Care Tire Stripper Name Role Phone Tram Álvarez MD Primary Care Provider [phone] Encounter Details Date Type Department Care Team (Late st Contact Info) Description 10/18/2024 Lab Requisition [facility] - Main Lab [address] [place] [address] Preeti Lujan MD [address] [phone] Sepsis, unspecified organism (CMS/HCC V24, CMS/HCC V28) [...] LAB CHEMISTRY METHOD 10/18/2024 1:[address] [facility] Potassium 4.0 3.5 - 5.5 mmol/L [...] Result [facility] [address] [place] [address], * (ABNORMAL) Complete blood count (10/18/2024 9:03 AM EDT) [facility] WBC 5.9 4.8 - 10.8 K/mcL LAB HEMETOLOGY METHOD [facility] RBC 3.40(L) 4.50 - 5.50 M/mcL LAB HEMETOLOGY METHOD 10/18/2024 1[facility] Hemoglobin 10.1(L) 13.5 - 17.5 g/dL LAB HEMETOLOGY METHOD 10/18/2024 1:35 PM [facility] LAB Hematocrit 32.3(L) 42.0 - 54.0 % LAB HEMETOLOGY METHOD 10/18/2024 1:35 PM [facility] LAB MCV 96.4 79.0 - 98.0 FL LAB HEMETOLOGY METHOD 10/18/2024 1:35 PM EDT [facility] MCH 30.1 27.0 - 32.0 pcg LAB HEMETOLOGY METHOD 10/18/2024 1:35 PM [facility] MCHC 31.3(L) 32.0 - 37.0 g/dL LAB HEMETOLOGY METHOD 10/18/2024 1:35 PM [facility] RDW 18.2(H) 11.0 - 15.0 % LAB HEMETOLOGY METHOD 10/18/2024 1:[facility] Platelets 275 130 - 400 K/mcL LAB HEMETOLOGY METHOD 10/18/2024 1:35 PM [facility] MPV 13.2(H) 7.0 - 11.0 FL LAB HEMETOLOGY METHOD 10/18/2024 1:35 PM [facility] NRBC 0.0 <1.0 % LAB HEMETOLOGY METHOD 10/18/2024 1:35 PM EDT [facility] NRBC Absolute 0.00 <0.10 K/mcL LAB HEMETOLOGY METHOD 10/18/2024 1:35 PM EDT [facility] Blood Venous blood specimen / Unknown Venipuncture / Unknown 10/18/2024 9:03 AM EDT 10/18/2024 11:02 AM EDT us Preeti Lujan MD LAB BLOOD ORDERABLES Fin al Result [facility] [address] [place] [address], documented in this encounter Visit Diagnoses Diagnosis Sepsis, unspecified organism (CMS/HCC V24, CMS/HCC V28) documented in this encounter Care Teams Tire Stripper Relationship Specialty Start Date End Date Tram Álvarez MD 2 [facility] , [address] [facility] Physician Associ D/B/A: [facility] JAS Duque PCP - General Internal Medicine 03/30/18 documented as of this encounter
--- OUTSIDE RECORDS SUMMARY | 2025-05-10 16:59 | XMS_ITS | Encounter Summary ---
Author Organization [facility] Address [address] [place] [address] Care Team Providers Care Automobile Glass Technician Name Role Phone Tram Álvarez MD Primary Care Provider [phone] Encounter Details Date Type Department Care Team (Late st Contact Info) Description 10/07/2024 Lab Requisition [facility] - Main Lab 299 [facility] [place] [address] Prince Le MD 38 [facility] [address] [place], [address] Type 2 diabetes mellitus without complications [...] V28) documented in this encounter Care Teams Automobile Glass Technician Relationship Specialty Start Date End Date Tram Álvarez MD [address] [place] [address] , [address] [facility] Physician Associ D/B/A: [facility] [place], [place] PCP - General Internal Medicine 03/30/18 documented as of this encounter
--- OUTSIDE RECORDS SUMMARY | 2025-05-10 16:59 | XMS_ITS | Encounter Summary ---
Author Organization [facility] Address [address] [place] [address] Care Team Providers Care Electronic Court Recorder Name Role Phone Tram Álvarez MD Primary Care Provider [phone] Encounter Details Date Type Department Care Team (Late st Contact Info) Description 10/14/2024 Lab Requisition [facility] - Main Lab 299 [facility] [place] [address] Prince Le MD [address] [facility] [address] [place], [address] Type 2 diabetes mellitus without [...] documented in this encounter Care Teams Electronic Court Recorder Relationship Specialty Start Date End Date Tram Álvarez MD [address] [place] [address] , [address] [facility] Physician Associ D/B/A: [facility] [place], [place] PCP - General Internal Medicine 03/30/18 documented as of this encounter
--- OUTSIDE RECORDS SUMMARY | 2025-05-10 16:59 | XMS_ITS | Encounter Summary ---
Author Organization [facility] Address [address] [place] [address] Care Team Providers Care Hand Crown Pouncer Name Role Phone Tram Álvarez MD Primary Care Provider [phone] Encounter Details Date Type Department Care Team (Late st Contact Info) Description 02/24/2025 Lab Requisition [facility] - Main Lab 299 [facility] [place] [address] Preeti Lujan MD [address] [phone] Essential (primary) hypertension Social History Tobacco Use [...] LAB CHEMISTRY METHOD 02/24/2025 9:39 AM EDT [facility] LAB Potassium 6.0(H) 3.5 - 5.5 mmol/L LAB CHEMISTRY METHOD 02/24/2025 9:39 AM EDT [facility] Chloride 110 96 - 110 mmol/L LAB CHEMISTRY METHOD 02/24/2025 9:[address] [facility] CO2 27 21 - 32 mmol/L LAB CHEMISTRY METHOD 02/24/2025 9:[address] [facility] Anion Gap 4 3 - 11 LAB CHEMISTRY METHOD 02/24/2025 9:[address] [facility] Glucose 117(H) 70 - 100 mg/dL LAB CHEMISTRY METHOD 02/24/2025 9:[address] [facility] BUN 27(H) 5 - 25 mg/dL LAB CHEMISTRY METHOD 02/24/2025 9:[address] [facility] Creatinine 0.84 0.70 - 1.30 mg/dL LAB CHEMISTRY METHOD 02/24/2025 9:[address] [facility] LAB eGFR 94 >=60 mL/min/1. 73m2 LAB CHEMISTRY METHOD 02/24/2025 9:[address] [facility] LAB Comment:Calculation based on the Chronic Kidney Disease Epidemiology Collaboration (CKD-EPI) equation refit without adjustment for race. BUN/Creatinine Ratio 32.1 LAB CHEMISTRY METHOD 02/24/2025 9:[address] [facility] Calcium 9.4 8.5 - 10.5 mg/dL LAB CHEMISTRY METHOD 02/24/2025 9:[address] [facility] Blood Venous blood specimen / Unknown Venipuncture / Unknown 02/24/2025 6:34 AM EDT 02/24/2025 8:31 AM EDT us Preeti Lujan MD LAB BLOOD ORDERABLES Fin al Result [facility] [address] [place] [address], * (ABNORMAL) Complete blood count (02/24/2025 6:34 AM EDT) WBC 7.9 4.8 - 10.8 K/mcL LAB HEMETOLOGY METHOD 02/24/2025 9:[address] [facility] RBC 3.90(L) 4.50 - 5.50 M/[facility] LAB HEMETOLOGY METHOD 02/24/2025 9:[address] [facility] Hemoglobin 11.0(L) 13.5 - 17.5 g/dL LAB HEMETOLOGY METHOD 02/24/2025 9:[address] [facility] Hematocrit 36.9(L) 42.0 - 54.0 % LAB HEMETOLOGY METHOD 02/24/2025 9:[address] [facility] MCV 95.3 79.0 - 98.0 FL LAB HEMETOLOGY METHOD 02/24/2025 9:[address] [facility] MCH 28.4 27.0 - 32.0 pcg LAB HEMETOLOGY METHOD 02/24/2025 9:[address] [facility] MCHC 29.8(L) 32.0 - 37.0 g/dL LAB HEMETOLOGY METHOD 02/24/2025 9:[address] [facility] RDW 17.6(H) 11.0 - 15.0 % LAB HEMETOLOGY METHOD 02/24/2025 9:[address] [facility] Platelets 287 130 - 400 K/[facility] LAB HEMETOLOGY METHOD 02/24/2025 9:[address] [facility] MPV 12.9(H) 7.0 - 11.0 FL LAB HEMETOLOGY METHOD 02/24/2025 9:[address] [facility] NRBC 0.0 <1.0 % LAB HEMETOLOGY METHOD 02/24/2025 9:[address] [facility] NRBC Absolute 0.00 <0.10 K/[facility] LAB HEMETOLOGY METHOD 02/24/2025 9:35 AM EDT [facility] Blood Venous blood specimen / Unknown Venipuncture / Unknown 02/24/2025 6:34 AM EDT 02/24/2025 8:31 AM EDT us Preeti Lujan MD LAB BLOOD ORDERABLES Fin al Result [facility] [address] [place] [address], documented in this encounter Visit Diagnoses Diagnosis Essential (primary) hypertension Unspecified essential hypertension documented in this encounter Care Teams Hand Crown Pouncer Relationship Specialty Start Date End Date Tram Álvarez MD [address] [place] [address] , [address] Physician Associ D/B/A: [facility] [place] PCP - General Internal Medicine 03/30/18 documented as of this encounter
--- OUTSIDE RECORDS SUMMARY | 2025-05-10 16:59 | XMS_ITS | Data Portability ---
Author Organization [employer] [facility] Address [address] [place] [address] Care Team Providers Care Retail Furniture Sales Name Role Phone HIM CCA OTHER LANG HERRERA Primary Care Provider [phone] Assessment No assessment recorded. Plan of Treatment [...] Available N ot Available [employer] [address] [place] active Not Available Not Available Not Available Flowflex COVID-19 Antigen Home Test kit active Not Available Not Available Not Available Vitals Date Recorded Respiratory rate Heart rate Body temperature Oxygen saturation Oxygen saturation in Arterial blood by Pulse oximetry Systolic And Diastolic Provider Name and Address Organization Details Last Updated DateTime 4 18 /min 92 /min 98.5 [degF] 98 % 98 % 170/100 mm[Hg] Not Available [facility] - production 4 17:15:57 Social History None recorded. Functional Status None recorded. Mental Status None recorded. Family History Nothing Reported. Medical History No medical history recorded. Past Encounters Encounter ID Performer Location Encounter Start Date Encounter Closed Date Diagnosis/Indication Diagnosis SNOMED-CT Code Diagnosis ICD10 Code Diagnosis IMO Codes Diagnosis Note [id number] Alicia Perez MD Main - [facility] [address] [place] [phone] 04/05/2024 17:15:55 10/21/2024 20:16:20 Accidental fall [id number] I provided real -time medical direction via phone for this encounter, and was available for additional phone based assistance as needed. I have reviewed and agree with the Assessment and Plan as documented by the Dial Printer. Patient given the opportunit y to ask [...] Recorded Advance Directives Directive None Recorded Payers Insurance Date Sequence Insurance Name Policy Number Policy Richardson Covered Member ID Richardson Member ID Guarantor Name 10/21/2024 1 [facility] - DOS ON OR AFTER 2022 - DUAL ELIGIBLE - [facility] OPTIONS AND ONE CARE (MEDICARE REPLACEMENT/ADV ANTAGE - HMO) Carlos Cabrera [id number] Carlos Cabrera Notes Date Note Type Note Provider Name and Address Organization Details Recorded Time 04/05/2024 text/html CRC Nurse Triage Notes (Inder Sweeney): Chief Complaints: Falls Allergies: Unknown Comments: Candle Making Supervisor verified the Pt.'s name//address and phone number. [...] .................. .................. .................. .................. .................. .................. ............... Dial Printer Note From Dangelo Willis: Dispatched to the [...] he is working on with his PCP. [facility] [place]. Red flags discussed. .................. .................. .................. .................. .................. .................. .................. ............... Disposition: Fulfilled Alicia Perez MD 30 [facility],[address], [place], [address], MOHINI PAGE 04/05/2024 20:37:09
--- OUTSIDE RECORDS SUMMARY | 2025-05-10 16:59 | XMS_ITS | Encounter Summary ---
Author Organization [facility] Address [address] [place] [address] Care Team Providers Care Funeral Car Chauffeur Name Role Phone Tram Álvarez MD Primary Care Provider [phone] Encounter Details Date Type Department Care Team (Late st Contact Info) Description 03/01/2025 Lab Requisition [facility] - Main Lab 299 [facility] [place] [address] Preeti Lujan MD [address] [phone] Essential (primary) hypertension Social History Tobacco Use [...] LAB CHEMISTRY METHOD 03/01/2025 11:[address] [facility] Potassium 4.6 3.5 - 5.5 [...] 32.9 LAB CHEMISTRY METHOD 03/01/2025 11:14 AM [facility] Calcium 8.5 8.5 - 10.5 mg/dL LAB CHEMISTRY METHOD 03/01/2025 11:14 AM [facility] LAB Blood Venous blood specimen / Unknown Venipuncture / Unknown 03/01/2025 6:05 AM EDT 03/01/2025 8:40 AM EDT us Preeti Lujan MD LAB BLOOD ORDERABLES Fin al Result [facility] [address] [place] [address], documented in this encounter Visit Diagnoses Diagnosis Essential (primary) hypertension Unspecified essential hypertension documented in this encounter Care Teams Funeral Car Chauffeur Relationship Specialty Start Date End Date Tram Álvarez MD 2 [facility] , [address] Physician Associ D/B/A: [facility] JAS Duque PCP - General Internal Medicine 03/30/18 documented as of this encounter
--- OUTSIDE RECORDS SUMMARY | 2025-05-10 16:59 | XMS_ITS | Data Portability ---
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 Name Role Phone LANG HERRERA Primary Care Provider [phone] [facility] FLO[facility] OTHER Assessment No assessment [...] Address Organization Details Recorded Time Diabetes mellitus 86910383 Active 2019 YANG SWEET [address] [facility] [address] [facility], [address], [place], [address], [facility] 0 09:29:33 Depressive disorder 55474977 Active 2019 YANG SWEET [address] , [address], [place], [address], [facility] 0 09:29:39 Essential hypertensio n 94615292 Active 2019 YANG SWEET [address] , [address], [place], [address], [facility] 0 09:29:47 Hypercholes terolemia 32765798 Active 2019 YANG SWEET [address] , [address], [place], [address], [facility] 0 09:29:57 Vitamin D deficiency 35132003 Active 2019 YANG SWEET [address] , [address], [place], [address], [facility] 0 09:30:10 Insomnia 261213745 Active 2019 YANG SWEET [address], [place], [address], [facility] 0 09:30:19 Spinal stenosis of lumbar region 00440844 Active 2019 YANG SWEET [address], [place], [address], [facility] 0 09:30:43 Total knee replacement Active 2022 Sonja Gibbs NP [address] [facility], [address], [place], [address], [facility] 3 09:12:50 Acute pain of joint of knee 2917628641622 04 Active 2022 Sonja Gibbs NP [address] [facility], [address], [place], [address], [facility] 3 09:14:53 Constipatio n 76183729 Active 2022 Sonja Gibbs NP [address] [facility], [address], [place], [address], [facility] 3 10:15:39 Osteoarthri tis of knee 305490413 Active 2022 Judie Camacho MD [address] [facility] [address] [facility], [address], [place], [address], [facility] 3 20:37:14 Chronic kidney disease stage 1 782529784 Active 2022 Judie Camacho MD [address] [facility], [address], [place], [address], [facility] 3 20:53:16 Chronic diastolic heart failure 264682716 Active 2023 Judie Camacho MD [address] [facility], [address], [place], [address], [facility] 4 21:28:14 Chronic kidney disease stage 2 206820174 Active 2023 Judie Camacho MD [address] [place] [address], [facility] [address], [place], [address], [facility] 4 21:28:20 Problem Notes None recorded. Procedures Surgical History Date Name Laterality Status Provider Name and Address Organization Details Recorded Time laminotomy completed NURIA FERNANDEZYANG VARGAS [address] [place] [address], [facility] [address], [place], [address], [facility] 01/06/2020 09:27:06 Imaging Results None recorded. Procedure Notes None recorded. Medical Equipment None Reported. Allergies Allergen ID Allergen Name Allergen Category Reaction Reaction Severity Criticality Documentation Date Start Date Code Code System Note Provider Name and Address Organization Details Recorded Time 28897 Product containin g penicilli n (product) medicatio n rash Not available Not available 01/06/2020 44052 8001 SNOMED NURIA FERNANDEZYANG VARGAS [address] [place] [address], [facility] [address], [place], [address], [facility] 0 09:20:02 95012 ioversol medicatio n Not available Not available Not available 12/06/20242021 09183 RxNorm Other react ion(s ): hives no meds given Judie Camacho MD [address] [place] [address], [facility] [address], [place], [address], [facility] 5 13:19:35 Medications Name Sig Start Date [...] cm 108/71 mm[Hg] Prince Le MD [address] [facility], [address], [place], [address], [facility] 09/11/2024 11:45:45 Date Recorded Body height Body weight Heart rate Respiratory rate Body temperature Oxygen saturation Oxygen saturation in Arterial blood by Pulse oximetry Systolic And Diastolic Provider Name and Address Organization Details Last Updated DateTime 5 198.12 cm 17087.3 g 76 /min 18 /min 98.6 [degF] 97 % 97 % 102/68 mm[Hg] Sonja Gibbs NP [address] [facility], [address], [place], [address], [facility] 5 09:33:55 Date Recorded Body height Body mass index (BMI) Body weight Heart rate Respiratory rate Body temperature Oxygen saturation Oxygen saturation in Arterial blood by Pulse oximetry Systolic And Diastolic Provider Name and Address Organization Details Last Updated DateTime 5 198.12 cm 19.8 kg/m2 35654.3 g 90 /min 18 /min 97.6 [degF] 97 % 97 % 102/70 mm[Hg] Sonja Gibbs NP [address] [facility], [address], [place], [address], [facility] 5 09:48:14 Date Recorded Body height Body mass index (BMI) Body weight Heart rate Respiratory rate Body temperature Oxygen saturation Oxygen saturation in Arterial blood by Pulse oximetry Systolic And Diastolic Provider Name and Address Organization Details Last Updated DateTime 5 198.12 cm 19.1 kg/m2 37592.7 4 g 76 /min 18 /min 97.6 [degF] 98 % 98 % 90/64 mm[Hg] Sonja Gibbs NP [address] [facility], [address], [place], [address], [facility] 5 16:46:26 Date Recorded Heart rate Respiratory rate Body temperature Oxygen saturation Oxygen saturation in Arterial blood by Pulse oximetry Systolic And Diastolic Provider Name and Address Organization Details Last Updated DateTime 5 76 /min 18 /min 97.6 [degF] 98 % 98 % 89/60 mm[Hg] Sonja Gibbs, DIAMOND [address], [address], [place], [address], [facility] 09:51:01 Date Recorded Body height Provider Name an d Address Organization Details Last Updated DateTime 10/20/2024 198.12 cm Sonja Gibbs, N P [address], [address], [place], [address], [facility] 10/20/2024 09:22:14 Social History Question Answer Notes LastModified by Organizat ion Details LastModified Time Tobacco Smoking Status Former Smoker Sonja Gibsb, DIAMOND [address], [place], [address], [facility] 02/14/2023 10:11:47 Do You Have An Advance Directive? Yes FULL CODE No Dialysis And Okay To Use Nutrition-us e Hydration Information not available 02/14/2023 How Much Tobacco Do You Chew? None [id number] Information not available 05/02/2020 What Is Your Code Status? Full Code Information not available 02/14/2023 Where Do You Live? Apartment Elevator Information not available 02/19/2023 Legal Guardian? 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 Yes [id number] Information not available 05/02/2020 What Was The [...] Many Years Have You Smoked Tobacco? 40 [id number] Information not available 05/02/2020 Do You Have [...] used smokeless tobacco? Never used smokeless tobacco [id number] Information not available 05/02/2020 Do you or have you ever used e-cigarettes or vape? Never used electronic cigarettes [id number] Information not available 05/02/2020 Mental Status None [...] adjuvanted, quadrivalent, PF 2 completed Nafisa [facility] 08/19/2023 09:57:53 Influenza, adjuvanted, quadrivalent, PF 3 [facility] 11:45:01 pneumococcal polysaccharide PPV23 8 completed Sade [facility] 05/07/2024 15:50:52 influenza, unspecified formulation 4 completed Sade [facility] 05/07/2024 15:51:08 SARS-COV-2 (COVID-19) vaccine, UNSPECIFIED 1 completed Sade [facility] 05/07/2024 15:51:23 SARS-COV-2 (COVID-19) vaccine, UNSPECIFIED 1 completed Sade [facility] 05/07/2024 15:51:30 SARS-COV-2 (COVID-19) vaccine, UNSPECIFIED 3 completed Sade wilkinson [place] [facility] 05/07/2024 15:51:38 Past Encounters Encounter ID Performer Location Encounter Start Date Encounter Closed Date Diagnosis/Indication Diagnosis SNOMED-CT Code Diagnosis ICD10 Code Diagnosis IMO Codes Diagnosis Note [id number] YANG SWEET [address] [address] 01/06/2020 09:16:35 01/10/2020 16:25:01 Spinal stenosis of lumbar region 75589608 M48.062 s/p L4-5 decompress ion 01/03/20 by [...] 10 days-appt already set up Diabetes mellitus 432611 09 E11.9 trulicity 1.5 mg q week on sundays lantus 45 units qd SSI januvia 100 mg qd monitor A1c monitor for s/s of hypo/hyper glycemia Essential hypertension 87650489 I10 amlodipine 5 mg qd benazepril 20 mg q hs and 40 mg q am HCTZ 50 mg qd monitor b/p and labs Hypercholesterolemia 136 26664 E78.2 atorvastat in 20 mg qd fenofibrat e 145 mg qd monitor labs Insomnia 466567497 G47.0 9 was on trazodone 50 mg [...] pt monitor mood Vitamin D deficiency 347 02520 E56.8 vitamin D3 1000 iu qd monitor levels [id number] Estefany Curtis MD [facility] [address] [place] [address] 01/07/2020 07:31:48 01/10/2020 16:31:47 Depressive disorder 69648358 F32.89 sertraline 50 mg dailywill monitor Diabetes mellitus 657469 09 E11.9 Humalog per sliding scaleJanuv ia 100 mg dailyLantu s 45 mg at hsmetformi n 1000 mg bidTrulici ty 1.5 mg weeklywill monitor Essential hypertension 96390157 I10 amlodipine 5 mg dailybenaz epril 40 mg dailyHCTZ 50 mg dailywill monitor Hypercholesterolemia 136 24666 E78.00 atorvastat in 20 mg dailyfenof ibrate 145 mg dailywill monitor Spinal mg nosis of lumbar region 12998052 M48.061 s/p recent decompress ion L4-5 cyclobenza tutu 10 mg tidnortrip tyline 25 mg bid diclofenac 75 mg bidgabapen tin 300 mg bid and 600 mg at hsoxycodon e 5-10 mg q4h prnfu neurosurge ryPT/OT [id number] PALAK BECKER NP [address] [address] 01/11/2020 08:12:58 01/14/2020 14:03:39 Depressive disorder 63691520 F32.9 sertraline 50 mg daily will monitor Spinal mg nosis of lumbar region 50592141 M48.061 cyclobenza tutu 10 mg tid nortriptyl ine 25 mg bid diclofenac 75 mg bid gabapentin 300 mg bid and 600 mg at hs oxycodone 5-10 mg q4h prn fu neurosurge ry PT/OT [id number] PALAK BECKER NP [address] [address] 01/14/2020 07:57:00 01/18/2020 09:07:39 Depressive disorder 77219975 F32.9 sertraline 50 mg daily will monitor Diabetes mellitus 959732 09 E11.9 monitor poc glucose Humalog per sliding scaleJanuv ia 100 mg daily Lantus 45 mg at hs metformin 1000 mg bid Trulicity 1.5 mg weekly will monitor Essential hypertension 05511540 I10 amlodipine 5 mg dailybenaz epril 40 mg daily HCTZ 50 mg daily will monitor Hypercholesterolemia 136 96282 E78.00 atorvastat in 20 mg daily fenofibrat e 145 mg daily will monitor Spinal mg nosis of lumbar region 68875843 M48.061 cyclobenza tutu 10 mg tid nortriptyl ine 25 mg bid diclofenac 75 mg bid gabapentin 300 mg bid and 600 mg at hs oxycodone 5-10 mg q4h prn fu neurosurge ry PT/OT [id number] YANG SWEET [address] [address] 01/17/2020 08:06:37 01/25/2020 11:54:15 Spinal stenosis of lumbar region 00392722 M48.062 s/p L4-5 decompress ion 01/03/20 by Tana diclofenac on 01/08/20-75 mg bid oxycodone 5-10 mg q 4 hrs prn cyclobenza tutu 10 mg tid neurontin 300 mg bid and 600 mg q hs follow up with surgeon on 02/15/20 and as needed Diabetes mellitus 778755 09 E11.9 trulicity 1.5 mg q week on sundays lantus 45 units qd januvia 100 mg qd follow up with PCP Essential hypertension 79819441 I10 amlodipine 5 mg qd benazepril 40 mg q am HCTZ 50 mg qd follow up with PCP Hypercholesterolemia 136 69020 E78.2 atorvastat in 20 mg qd fenofibrat e 145 mg qd follow up with PCP Insomnia 442713165 G47.0 9 follow up with PCP Depressive disorder 3548 9007 F32.89 zoloft 50 mg qd nortriptyl ine 25 mg q 12 hrs follow up with PCP Vitamin D deficiency 347 32274 E56.8 vitamin D3 1000 iu qd follow up with PCP [id number] Sonja Gibbs NP [facility] [address] [address] 02/14/2023 08:55:37 02/19/2023 09:34:58 Spinal stenosis of lumbar region 24538373 M48.062 s/p L4-5 decompress ion 01/03/20 by Jimmyee knee surgery oxycodonec yclobenzap rine 10 mg bedtime prnmonitor pain Diabetes mellitus 089758 09 E11.9 cont home regimentru licity 1.5 sc at 0900 on iba 55 units sc bedtimemet formin 500 mg er bidjardian ce 25 mg qdvascepa 2 g po bidmonitor bs bid x 3 days and reeval Essential hypertension 59649806 I10 hydralazin e 10 mg po tidbenazep ril 40 mg q am (per dc instructio ns and pt on both)lisin opril 20 mg po daily (per dc instructio ns and pt on both)furos emide 20 mg po dailymonit or bp, hr Hypercholesterolemia 136 65724 E78.2 atorvastat in 20 mg qdfenofibr ate 145 mg qd Insomnia 797517617 G47.0 9 follow up with PCP Depressive disorder 3548 9007 F32.89 lorazepam 1 mg po bidmonitor for anxiety Vitamin D deficiency 347 40180 E56.8 vitamin D3 1000 iu qd Acute pain of joint of knee 0333423877 51498 M25.569 sp post op 02/11/23 total knee [...] stregth, gait trainingcb c bmp weekly Constipation 20196260 K5 9.00 post op constipati oncont docusate 100 mg po bid*start milk of magnesia 30 cc po today and q 24 hours prn constipati on [id number] Judie Camacho MD [address] [address] 02/18/2023 19:53:10 02/20/2023 08:52:13 Spinal stenosis of lumbar region 84423451 M48.062 With chronic back pain. Uses oxycodone 5 mg TID at baseline and cyclobenza tutu 10 mg qhs prnPT/OT as above.Tabitha tor pain Diabetes mellitus 620551 09 E11.9 Last HgA1C was 7.9 on 01/31/23, BS have been good since hereReport eden doesn't use all his meds regularly due to cost.Vasu nue trulicity 1.5 weekly, tresiba 55 U qd, metformin 500 mg BID, and jardiance 25 mg qdMonitor fingerstic ks BID and HgA1C as outpt. Essential hypertension 67108031 I10 BP in good control.Co ntinue hydralazin e 10 mg TID, benazepril 40 mg qd, lisinopril 20 mg qd and furosemide 20 mg qd.Monitor BP and labsUnclea r why pt is on 2 SHANNON inhibitors , but will leave for PCP to manage. Vitamin D deficiency 347 81729 E56.8 Continue vitamin D3 1000 IU qdMonitor as outpt. Constipation 89228558 K5 9.09 Will add miralax 17 gms qd and continue docusate 100 mg BID and MOM prn.Monito r bowel function Osteoarthr itis of knee 254799249 M17.12 Z96.652 Recovering slowly after LTKR.Vasu nue [...] f/u Chronic ki dney disease stage 1 921051892 N18.1 At baseline.C ontinue to avoid nephrotoxi c meds as able.Monit or labs.Renal consult prn. Hyperlipidemia 33942684 E78.49 E78.1 Last lipids in system from 02/2021, trig were still high, but TC and HDL ok.Continu e atorvastat in 20 mg qd, fenofibrat e 145 mg qd and vascepa 2 g BID.Will get lipid profile while here, then f/u with PCP as outpt. 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 was still on sertraline , but per inpt notes, not filled at either [facility] or [facility] recently.C ontinue lorazepam 1 mg BID.monito r for anxiety [id number] Sonja Gibbs, DIAMOND [facility] [place] [address] 02/21/2023 10:00:03 02/25/2023 10:32:50 Osteoarthritis of knee 416325451 M17.12 Z96.652 LTKR originally done on ontinu [...] f/u Spinal mg nosis of lumbar region 29790981 M48.062 With chronic back pain.oxyco done 5 mg TID at baseline and cyclobenza tutu 10 mg qhs prn at baseline, now see above osteoarthr itis of knee for new pain regimenPT/ OT as above.Tabitha tor pain Diabetes mellitus 896277 09 E11.9 Last HgA1C was 7.9 on 01/31/23, BS have been good since hereContin uetrulicit y 1.5 weeklytres iba 55 U qdmetformi n 500 mg BID,jardia nce 25 mg qdMonitor fingerstic ks BID and HgA1C as outpt. Essential hypertension 38754644 I10 BP in good control. slightly high likely due to painContin uehydralaz ine 10 mg TIDbenazep ril 40 mg qdlisinopr il 20 mg qdfurosemi de 20 mg qd.Monitor BP and labsUnclea r why pt is on 2 SHANNON inhibitors , but will leave for PCP to manage. (pt on this regimen for many years and reports it works) Hyperlipidemia 39142213 E78.49 E78.1 Last lipids in system from 02/2021, trig were still high, but TC and HDL ok.Continu eatorvasta tin 20 mg qdfenofibr ate 145 mg qdvascepa 2 g BID.lipid profile pendingf/u with PCP as outpt. Mixed anxi ety and depressive disorder 954643411 F41.8 Per pt. was still on sertraline , but per inpt notes, not filled at either [facility] or [facility] recently.C ontinuelor azepam 1 mg BID.monito r for anxiety Vitamin D deficiency 347 62560 E56.8 Continuevi tamin D3 1000 IU qdMonitor as outpt. Constipation 56853274 K5 9.09 with hard stools per report latelymira lax 17 gms qddocusate 100 mg BIDMOM prn.Monito r bowel function Chronic ki dney disease stage 1 917375010 N18.1 At baseline.C ontinue to avoid nephrotoxi c meds as able.Monit or labs.Renal consult prn. [id number] Sonja Gibbs NP [address] [address] 02/24/2023 08:59:01 02/28/2023 10:19:51 Osteoarthritis of knee 246641902 M17.12 Z96.652 LTKR originally done on inc [...] ortho on 02/[address] Juana Apple ([facility] to check into this appt with office as pt states his cheng states it is for PT)Keep aquacel dressing in place until f/u Diabetes mellitus 186447 09 E11.9 Last HgA1C was 7.9 on 01/31/23, BS have been good since hereContin uetrulicit y 1.5 weeklytres iba 55 U qdmetformi n 500 mg BID,jardia nce 25 mg qdMonitor fingerstic ks BID and HgA1C as outpt. Spinal mg nosis of lumbar region 38630166 M48.062 With chronic back pain.oxyco done 5 mg TID at baseline and cyclobenza tutu 10 mg qhs prn at baseline, now see above osteoarthr itis of knee for new pain regimenPT/ OT as above.Tabitha tor pain Essential hypertension 97721102 I10 BP slightly high likely due to painContin uehydralaz ine 10 mg TIDbenazep ril 40 mg qdlisinopr il 20 mg qdfurosemi de 20 mg qd.Monitor BP and labsUnclea r why pt is on 2 SHANNON inhibitors , but will leave for PCP to manage. (pt on this regimen for many years and reports it works) Hyperlipidemia 35422355 E78.49 E78.1 Last lipids in system from 02/2021, trig were still high, but TC and HDL ok.Continu eatorvasta tin 20 mg qdfenofibr ate 145 mg qdvascepa 2 g BID.lipid profile pendingf/u with PCP as outpt. Mixed anxi ety and depressive disorder 518348572 F41.8 Per pt. was still on sertraline , but per inpt notes, not filled at either [facility] or [facility] recently.C ontinuelor azepam 1 mg BID.monito r for anxiety Vitamin D deficiency 347 89160 E56.8 Continuevi tamin D3 1000 IU qdMonitor as outpt. Constipation 38392194 K5 9.09 with hard stools per report latelyincr ease miralax 17 gms qd to bidcont docusate 100 mg BIDMOM prn. q 24 hours if hard stools or no bmMonitor bowel function Chronic ki dney disease stage 1 673664885 N18.1 At baseline.C ontinue to avoid nephrotoxi c meds as able.Monit or labs.Renal consult prn. [id number] Sonja Gibbs NP [address] [place] [address] 02/28/2023 08:24:09 03/03/2023 11:01:20 Osteoarthritis of knee 273675448 M17.12 Z96.652 LTKR originally done on oxy [...] and make 2 week appt today Constipation 19028776 K5 9.09 resolvingc ontmiralax 17 gms qd to biddocusat e 100 mg BIDMOM prn. q 24 hours if hard stools or no bmMonitor bowel function Diabetes mellitus 608326 09 E11.9 Last HgA1C was 7.9 on 01/31/23, BS have been good since hereContin uetrulicit y 1.5 weeklytres iba 55 U qdmetformi n 500 mg BID,jardia nce 25 mg qdMonitor fingerstic ks BID and HgA1C as outpt. Spinal mg nosis of lumbar region 36329889 M48.062 With chronic back pain.oxyco done 5 mg TID at baseline and cyclobenza tutu 10 mg qhs prn at baseline, now see above osteoarthr itis of knee for new pain regimenPT/ OT as above.Tabitha tor pain Essential hypertension 66773939 I10 BP slightly high likely due to pain, will monitor closelyCon tinuehydra lazine 10 mg TIDbenazep ril 40 mg qdlisinopr il 20 mg qdfurosemi de 20 mg qd.Monitor BP and labsUnclea r why pt is on 2 SHANNON inhibitors , but will leave for PCP to manage. (pt on this regimen for many years and reports it works) Hyperlipidemia 58372663 E78.49 E78.1 Last lipids in system from 02/2021, trig were still high, but TC and HDL ok.Continu eatorvasta tin 20 mg qdfenofibr ate 145 mg qdvascepa 2 g BID.lipid profile pendingf/u with PCP as outpt. Mixed anxi ety and depressive disorder 755890468 F41.8 Per pt. was still on sertraline , but per inpt notes, not filled at either [facility] or [facility] recently.C ontinuelor azepam 1 mg BID.monito r for anxiety Vitamin D deficiency 347 42545 E56.8 Continuevi tamin D3 1000 IU qdMonitor as outpt. Chronic ki dney disease stage 1 776897867 N18.1 At baseline.C ontinue to avoid nephrotoxi c meds as able.Monit or labs.Renal consult prn. [id number] Sonja Gibbs NP [address] [address] 03/03/2023 08:59:22 03/05/2023 08:05:09 Osteoarthritis of knee 674755187 M17.12 Z96.652 LTKR originally done on oxy [...] and make fu appt-still no note Constipation 58311199 K5 9.09 better on this regimencon tmiralax 17 gms qd to biddocusat e 100 mg BIDMOM prn. q 24 hours if hard stools or no bmMonitor bowel function Diabetes mellitus 542963 09 E11.9 Last HgA1C was 7.9 on 01/31/23, BS have been good since hereContin uetrulicit y 1.5 weeklytres iba 55 U qdmetformi n 500 mg BID,jardia nce 25 mg qdMonitor fingerstic ks BID and HgA1C as outpt. Spinal mg nosis of lumbar region 11164367 M48.062 With chronic back pain.oxyco done 5 mg TID at baseline and cyclobenza tutu 10 mg qhs prn at baseline, now see above with osteoarthr itis of knee for new pain regimenPT/ OT as above.Tabitha tor pain Essential hypertension 64634046 I10 BP slightly high likely due to pain now improving, will monitor closely 130s/70sCo ntinuehydr alazine 10 mg TIDbenazep ril 40 mg qdlisinopr il 20 mg qdfurosemi de 20 mg qd.Monitor BP and labsUnclea r why pt is on 2 SHANNON inhibitors , but will leave for PCP to manage. (pt on this regimen for many years and reports it works) Hyperlipidemia 52347769 E78.49 E78.1 Last lipids in system from 02/2021, trig were still high, but TC and HDL ok.Continu eatorvasta tin 20 mg qdfenofibr ate 145 mg qdvascepa 2 g BID.lipid profile pendingf/u with PCP as outpt. Mixed anxi ety and depressive disorder 117637487 F41.8 Per pt. was still on sertraline , but per inpt notes, not filled at either [facility] or [facility] recently.C ontinuelor azepam 1 mg BID.monito r for anxiety Chronic ki dney disease stage 1 885122560 N18.1 At baseline.C ontinue to avoid nephrotoxi c meds as able.Monit or labs.Renal consult prn. Edema of l ower extremity 566998493 R60.0 nsg and pt state bilateral feet swelling, now better this am after feet up all night, likely dependent as he is up more throughout the day 03/03 start compressio n stockings on in am off in pmmonitor [id number] Sonja Gibbs NP [address] [place] [address] 03/06/2023 11:01:35 03/11/2023 09:41:09 Osteoarthritis of knee 320543345 M17.12 Z96.652 LTKR originally done on 02/11oxycodo [...] ortho on 02/[address] Juana Apple ([facility] to check into this appt with office as pt states his cheng states it is for PT)fu with ortho and pcp outpt and PT services amended orderpt has pain and oxycodone not availablet ramadol 100 mg po q 6 hours prn x 24 hoursmonit or Constipation 22976060 K5 9.09 miralax 17 gms qd to bid, titrate as neededdocu sate 100 mg BIDMOM prn. q 24 hours if hard stools or no bmMonitor bowel function outpt with vna pcp Diabetes mellitus 235943 09 E11.9 Last HgA1C was 7.9 on 01/31/23, BS have been good since heretrulic ity 1.5 weeklytres iba 55 U qdmetformi n 500 mg BID,jardia nce 25 mg qdMonitor fingerstic ks BID and HgA1C as outpt.foll ow with pcp outpt Spinal mg nosis of lumbar region 72856099 M48.062 With chronic back pain.oxyco done 5 mg TID at baseline(s ee increased regimen above osteoarthr itis please ) and cyclobenza tutu 10 mg qhs prn at baselinePT /OT as above.Tabitha tor pain outpt with pcp Essential hypertension 52756110 I10 BP slightly high likely due to painContin uehydralaz ine 10 mg TIDbenazep ril 40 mg qdlisinopr il 20 mg qdfurosemi de 20 mg qd.Monitor BP and labsUnclea r why pt is on 2 SHANNON inhibitors , but will leave for PCP to manage outpt. (pt on this regimen for many years and reports it works) Hyperlipidemia 46743802 E78.49 E78.1 Last lipids in system from 02/2021, trig were still high, but TC and HDL ok.Continu eatorvasta tin 20 mg qdfenofibr ate 145 mg qdvascepa 2 g BID.lipid profile pendingf/u with PCP as outpt. Mixed anxi ety and depressive disorder 108732838 F41.8 Per pt. was still on sertraline , but per inpt notes, not filled at either [facility] or [facility] recently.C ontinuelor azepam 1 mg BID.monito r for anxiety outpt with pcp Vitamin D deficiency 347 73299 E56.8 Continuevi tamin D3 1000 IU qdMonitor as outpt with pcp Chronic ki dney disease stage 1 055555002 N18.1 At baseline.C ontinue to avoid nephrotoxi c meds as able.Monit or labs.Renal consult prn outpt Hypercholesterolemia 136 38689 E78.2 atorvastat in 20 mg qdfenofibr ate 145 mg qdfu with pcp outpt Insomnia 962162937 G47.0 9 follow up with PCP outpt [id number] Judie Camacho MD [address] [address] 05/07/2024 18:25:29 05/10/2024 08:52:32 Chronic diastolic heart failure 486844690 I50.32 Pt says he never had any [...] labs. Spinal mg nosis of lumbar region 37967727 M48.062 With chronic back pain. Uses oxycodone 10 mg Q[facility] at [facility]W r[facility] for 5 mg QID at hospital, will change back to baseline dose.Very deconditio amaury.Needs PT/OT for strengthen ing, balance, gait training, safety and function.C ontinue fall precaution s.Monitor for safety.Mon itor pain controlCel ebrex on hold. Hypercholesterolemia 136 12870 E78.2 Continue atorvastat in 20 mg qd, fenofibrat e 145 mg qd, vascepa 2 g BID, and ASA 81 mg qd.Monitor labs as outpt. Essential hypertension 06053949 I10 SBP a little high yesterday, not checked todayConti nue meds as above and amlodipine 2.5 mg qd.Monitor BP and labsDaily BPs ordered. Diabetes mellitus 308903 09 E11.9 Last HgA1C was 7.9 in 11/2023.Fol lowed by endocrine at [facility].Contin ue trulicity 1.5 weekly, tresiba 35 U qd, metformin 500 mg BID, januvia 25 mg qd, and SSITresiba not yet delivered, ok to use Lantus instead tonight.Mo nitor fingerstic ks TID and HgA1C as outpt. Depressive disorder 3548 9007 F32.89 In hx.On no meds.Monit or mood.Psych consult prn. Chronic ki dney disease stage 2 938093140 N18.2 At baseline.C ontinue to avoid nephrotoxi c meds as able.Monit or labs.Renal consult prn. Benign pro static hyperplasia without outflow obstruction 891712002 N40.0 In hx, with some issues with retention at times.Cont inue tamsulosin 0.4 mg qd. [id number] MARIE TORRES NP [facility] [address] [place] [address] 05/13/2024 13:47:03 05/14/2024 10:52:03 Chronic diastolic heart failure 563012942 I50.32 Pt says he never had any [...] 3 Spinal mg nosis of lumbar region 18905940 M48.062 With chronic back pain. Uses oxycodone 10 mg QID at baseline (checked in [facility]).W ritten for 5 mg QID at hospital, will change back to baseline dose.Very deconditio amaury.Needs PT/OT for strengthen ing, balance, gait training, safety and function.C ontinue fall precaution s.Monitor for safety.Mon itor pain controlCel ebrex on hold. Diabetes mellitus 874735 09 E11.9 Last HgA1C was 7.9 in 11/2023.Fol lowed by endocrine at [facility].Contin ue trulicity 1.5 weekly, tresiba 35 U qd, metformin 500 mg BID, januvia 25 mg qd, and SSITresiba not yet delivered, ok to use Lantus instead tonight.Mo nitor fingerstic ks TID and HgA1C as outpt. Essential hypertension 42453588 I10 SBP a little high yesterday, not checked todayConti nue meds as above and amlodipine 2.5 mg qd.Monitor BP and labsDaily BPs ordered. Chronic ki dney disease stage 2 823229630 N18.2 At baseline.C ontinue to avoid nephrotoxi c meds as able.Monit or labs.Renal consult prn. Hypercholesterolemia 136 51714 E78.2 Continue atorvastat in 20 mg qd, fenofibrat e 145 mg qd, vascepa 2 g BID, and ASA 81 mg qd.Monitor labs as outpt. Depressive disorder 3548 9007 F32.89 In hx.On no meds.Monit or mood.Psych consult prn. Benign pro static hyperplasia without outflow obstruction 199141510 N40.0 In hx, with some issues with retention at times.Cont inue tamsulosin 0.4 mg qd. Pain in right arm 366952 004 M79.601 New onset, x 2-3d. Denies trauma or injury.Exa m limited due to painPMR assessed as well.Plan -Check x rays and venous USOxycodon e already available for pain.Monit or closely. [id number] Sonja Gibbs, DIAMOND [facility] [address] [address] 05/14/2024 11:54:20 05/17/2024 11:03:10 Chronic diastolic heart failure 585252383 I50.32 Pt's main c/o was and continues [...] today Spinal mg nosis of lumbar region 80524696 M48.062 With chronic back pain. hx of oxycodone 10 mg QID at baseline (GRADES 1 [employer]RU 5 [employer] [facility] and changed to baseline dose as hosp decreased it to 5mg QID prnVery deconditio amaury.Needs PT/OT for strengthen ing, balance, gait training, safety and function.C ontinue fall precaution s.Monitor for safety.Mon itor pain controlCel ebrex on hold. Diabetes mellitus 626921 09 E11.9 BS 127 today and stable, [facility] Hg[facility] 7.9 in 11/2023.[place] 1.5 weekly, tresiba 35 U qd, metformin 500 mg BID, januvia 25 mg qd, and SSIMonitor fingerstic ks TID and HgA1C as outpt. Essential hypertension 43188090 I10 bp stable 128/72 todayConti nue meds as above and amlodipine 2.5 mg qd.Monitor BP and labsDaily BPs ordered. Chronic ki dney disease stage 2 412461451 N18.2 At baseline.C ontinue to avoid nephrotoxi c meds as able.Monit or labs.Renal consult prn. Hypercholesterolemia 136 39513 E78.2 Continueat orvastatin 20 mg qd, fenofibrat e 145 mg qd, vascepa 2 g BID, and ASA 81 mg qd.Monitor labs as outpt. Depressive disorder 3548 9007 F32.89 In hx.On no meds.Monit or mood.Psych consult prn. Benign pro static hyperplasia without outflow obstruction 720799469 N40.0 In hx, with some issues with retention at times.Cont inuetamsul osin 0.4 mg qd. Pain in right arm 332848 004 M79.601 New onset, x 2-3d. Denies trauma or injury. feels it is improvingx rays and venous US to right arm negative for acute findingsOx ycodone for pain.05/14 seen by physiatry on 05/13 rec: tyl 1000 mg po tid and lidocaine patch, will agree and order todayMonit or closely. Dizziness 155312998 R42 pt reports dizziness today directly related to the room being hot05/14 requests to move room, decrease heat or leave facility, nursing aware and heat reduced, vitals and BS stablemoni tor closely for improvemen t or changes Tinea pedis 9516477 B35. 3 clotrimazo le 1 % cream bid x 10 daysmonito r [id number] Sonja Gibbs NP [facility] [address] [place] [address] 05/20/2024 07:43:04 05/21/2024 11:07:38 Pain in right arm 339050866 M79.601 New onset, x 2-3d. Denies trauma or injury. feels it is improvingx rays and venous US to right arm negative for acute findingsOx ycodone for pain.physi atry rec tyl 1000 mg po tid and lidocaine patch which is helping but remains with pain. will reconsult1 07/20 will increase cyclobenza tutu to bid todayMonit or closely. Tinea pedis 9639464 B35. 3 improving slightlycl otrimazole 1 % cream bid x 10 daysmonito r Chronic di astolic heart failure 261705980 I50.32 Pt's main c/o was and continues [...] x1 Spinal mg nosis of lumbar region 58313063 M48.062 With chronic back pain. hx of oxycodone 10 mg QID at baseline (GRADES 1 THRU 5 TE[employer]ER checked in [facility] home dose).cont PT/OT for strengthen ing, balance, gait training, safety and function.C ontinue fall precaution s.Monitor for safety.Mon itor pain controlCel ebrex on hold. Diabetes mellitus 311168 09 E11.9 BS 102-182 stable, [facility] HgA1C was 7.9 in 11/2023.[place] 1.5 weekly, tresiba 35 U qd, metformin 500 mg BID, januvia 25 mg qd, and SSIMonitor fingerstic ks TID and HgA1C as outpt. Essential hypertension 00865968 I10 bp stable 126/69 todayConti nue meds as above and amlodipine 2.5 mg qd.Monitor BP and labsDaily BPs ordered. Chronic ki dney disease stage 2 423970318 N18.2 At baseline.C ontinue to avoid nephrotoxi c meds as able.Monit or labs.Renal consult prn. Hypercholesterolemia 136 02394 E78.2 Continueat orvastatin 20 mg qd, fenofibrat e 145 mg qd, vascepa 2 g BID, and ASA 81 mg qd.Monitor labs as outpt. Depressive disorder 3548 9007 F32.89 In hx.On no meds.Monit or mood.Psych consult prn. Benign pro static hyperplasia without outflow obstruction 628462815 N40.0 In hx, with some issues with retention at times.Cont inuetamsul osin 0.4 mg qd. [id number] Sonja Gibbs NP [address] [address] 05/27/2024 13:47:02 05/28/2024 10:07:06 Pain in right arm 684783896 M79.601 Denies trauma or injury. feels it is improving. refuses additional meds for pain todayx rays and venous US to right arm negative for acute findingsOx ycodone for pain.physi atry rec tyl 1000 mg po tid and lidocaine patch which is helpingcyc lobenzapri ne to bid todayMonit or closely. Tinea pedis 8529826 B35. 3 improvingc lotrimazol e 1 % cream bid x 10 days to completemo nitor Chronic di astolic heart failure 984565398 I50.32 Pt's main c/o was and continues [...] above Spinal mg nosis of lumbar region 69150747 M48.062 With chronic back pain. hx of oxycodone 10 mg QID at baseline, will cont(GRADES 1 THRU 5 TE[employer]ER checked in [facility] home dose).cont PT/OT for strengthen ing, balance, gait training, safety and function.C ontinue fall precaution s.Monitor for safety.Mon itor pain controlCel ebrex remains on hold. Diabetes mellitus 602063 09 E11.9 BS 100s-occ 200s stable, [facility] outptLast HgA1C was 7.9 in 11/2023.Con [place] 1.5 weekly, tresiba 35 U qd, metformin 500 mg BID, januvia 25 mg qd, and SSIMonitor fingerstic ks TID and HgA1C as outpt. Essential hypertension 02403068 I10 bp stableCont inue meds as above and amlodipine 2.5 mg qd.Monitor BP and labs Chronic ki dney disease stage 2 609649330 N18.2 At baseline.C ontinue to avoid nephrotoxi c meds as able.Monit or labs.Renal consult prn. Hypercholesterolemia 136 32512 E78.2 Continueat orvastatin 20 mg qd, fenofibrat e 145 mg qd, vascepa 2 g BID, and ASA 81 mg qd.Monitor labs as outpt. Depressive disorder 3548 9007 F32.89 a little down today, wishes his progress was futher, but reports okayOn no meds.Monit or mood.Psych consult prn. Benign pro static hyperplasia without outflow obstruction 802330423 N40.0 In hx, with some issues with retention at times.Cont inuetamsul osin 0.4 mg qd. Asthenia 79380515 R53.1 remains with weakness to legs and armsPT/OT eval and treatmonit or [id number] Sonja Gibbs NP [address] [address] 05/31/2024 10:47:07 06/02/2024 08:35:29 Pain in right arm 864852183 M79.601 Denies trauma or injury. feels it is improving. refuses additional meds for pain today but requests the oxycodone 10 mg scheduled instead of prnx rays and venous US to right arm negative for acute emlltbkq50 /25 sched Oxycodone 10 mg po q 6 hours and dc prn doses for pain.physi atry rec tyl 1000 mg po tid and lidocaine patch which is helpingcyc lobenzapri ne bidMRI sched for 06/01 of back and hoping to get more info on status and diagnosisM onitor closely. Asthenia 38850072 R53.1 remains with weakness to legs and armsPT/OT eval and treatmonit or Depressive disorder 3548 9007 F32.89 a little down today, wishes his progress was futher, but reports okayOn no meds.Monit or mood.Psych consult prn. Chronic di astolic heart failure 766340735 I50.32 Pt's main c/o was and continues [...] stable Spinal mg nosis of lumbar region 15080394 M48.062 With chronic back pain. 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 MRI sched for 06/01 of back and hoping to get more info on status and diagnosis contPT/OT for strengthen ing, balance, gait training, safety and function.C ontinue fall precaution s.Monitor for safety.Mon itor pain controlCel ebrex remains on hold. Diabetes mellitus 226637 09 E11.9 BS 100s-occ 200s stable, [facility] outptLast HgA1C was 7.9 in 11/2023.Con [place] 1.5 weekly, tresiba 35 U qd, metformin 500 mg BID, januvia 25 mg qd, and SSIMonitor fingerstic ks TID and HgA1C as outpt. Essential hypertension 27154157 I10 bp stableCont inue meds as above and amlodipine 2.5 mg qd.Monitor BP and labs Chronic ki dney disease stage 2 827766009 N18.2 At baseline.C ontinue to avoid nephrotoxi c meds as able.Monit or labs.Renal consult prn. [id number] [facility] [address] 06/17/2024 08:35:00 06/18/2024 14:22:00 Spinal stenosis of lumbar region 33127904 M48.062 With chronic back pain. hx of [...] His pcp Dr Jacinto referred him to [facility] with appt [...] remains on hold. Pain in right arm 329617 004 M79.601 Denies trauma or injury. feels it is improving. has decreased rom and lymphedema for some time nowcontphy siatry prn consultedc onttyl 1000 mg po tid and lidocaine patch which is helpingsch ed Oxycodone 10 mg po q 6 hours and dc prn doses for pain.cyclo benzaprine bidMRI sched for 06/01 of back results pending. nsg obtainingM onitor closely. Asthenia 07134168 R53.1 remains with weakness to left leg and right armPT/OT eval and treat prn, off regular therapymon itor Osteoarthr itis of knee 708042796 M17.12 Z96.652 LTKR originally done on 02/11remains [...] hours prn n/v x 30 days Constipation 47993141 K5 9.09 unclear why bowel meds decreased recently, now with 6 days of constipati onmiralax 17 gms prn qd, titrate as neededdocu sate 100 mg daily06/17 MOM 30 cc when he returns from [facility] and give bisacodyl supp if no results in a few hoursMonit or bowel function outpt with [facility] pcp [id number] [facility] Camacho [facility] [address] 06/18/2024 19:40:37 12/14/2024 09:26:32 Nausea and vomiting 78472587 R11.2 Thought due to constipati on.Improve dContinue zofran 4 mg q 6 hrs prnMonitor for recurrence . Constipation 91356820 K5 9.09 Continue bowel meds as ordered.Mo nitor bowel function. Spinal mg nosis of lumbar region 72886684 M48.062 With mod to severe spinal canal [...] s as planned. Pain in right arm 255201 004 M79.601 As above. Asthenia 19301219 R53.1 Continues with weakness of LLE and RUEPT/OT prnF/U with specialist s as planned. Chronic di astolic heart failure 189762197 I50.32 Only sx is peripheral edemaHis last echo was in 2022 and showed EF of 60-65% and grade 1 diastolic dysfunctio n.Continue benazapril 40 mg qd, lasix 40 mg qd, and hydralazin e 25 mg qd.Also on Trulicity, which is cardioprot ective.Cheng ears euvolemic. Monitor resp. status, fluid status, wts and labs. Diabetes mellitus 377153 09 E11.9 Last HgA1C was 7.9 in 11/2023.Fol lowed by endocrine at [facility].Contin ue trulicity 1.5 weekly, tresiba 35 U qd, metformin 500 mg BID, januvia 25 mg qd, and SSITresiba not yet delivered, ok to use Lantus instead tonight.Mo nitor fingerstic ks TID and HgA1C as outpt. Essential hypertension 25256825 I10 SBP a little high yesterday, not checked todayConti nue meds as above and amlodipine 2.5 mg qd.Monitor BP and labsDaily BPs ordered. Chronic ki dney disease stage 2 237527800 N18.2 At baseline.C ontinue to avoid nephrotoxi c meds as able.Monit or labs.Renal consult prn. Hypercholesterolemia 136 79640 E78.2 Continue atorvastat in 20 mg qd, fenofibrat e 145 mg qd, vascepa 2 g BID, and ASA 81 mg qd.Monitor labs as outpt. Depressive disorder 3548 9007 F32.89 In hx.On no meds.Monit or mood.Psych consult prn. Benign pro static hyperplasia without outflow obstruction 000132579 N40.0 In hx, with some issues with retention at times.Cont inue tamsulosin 0.4 mg qd. [id number] MARIE TORRES NP [facility] [address] 06/22/2024 12:27:29 06/23/2024 09:31:59 Gastroesophageal reflux disease without esophagitis 745938771 K21.9 Using TUMS frequently for GERD/GI sx.Start pepcid 20 mg bidMonitor sx.If remain problemati c, consider trial of PPI [id number] Sonja Gibbs NP [facility] [address] 06/23/2024 13:31:14 06/24/2024 12:10:49 Asthenia 48060500 R53.1 remains with weakness to left leg and right armPT/OT eval and treat prn, off regular therapymon itor Constipation 77322123 K5 9.09 unclear why bowel meds decreased recently, now with 2 days of constipati on and continues with this every couple of days give mom 30 cc and bisacodyl 10 pr supp nowcont miralax 17 gms prn daily(sche duled)cydney a plus 2 tabs dailydc docusateMo nitor bowel function Spinal mg nosis of lumbar region 83159995 M48.062 With chronic back pain. hx of [...] Apple 06/24 for right shoulder painalso 07/29/24 [facility] at 1 pm. contPT/OT for strengthen ing, balance, gait training, safety and function prnremains barrington lift at this timeContin ue fall precaution s.Monitor for safety.Mon itor pain controlCel ebrex remains on hold. Pain in right arm 905840 004 M79.601 Denies trauma or injury. feels it is improving. has decreased rom and lymphedema for some time nowcontphy siatry prn consultedc onttyl 1000 mg po tid and lidocaine patch which is helpingsch eduled Oxycodone 10 mg po q 6 hours and dc prn doses for pain.cyclo benzaprine bidMonitor closely.se e above for management Osteoarthr itis of knee 193109314 M17.12 Z96.652 LTKR originally done on 02/11remains [...] 06/17monit or Chronic di astolic heart failure 055542973 I50.32 Pt says he never had any [...] fluid status, wts and labs. Diabetes mellitus 199813 09 E11.9 Last HgA1C was 7.9 in 11/2023.Fol lowed by endocrine at [facility].Contin uetrulicit y 1.5 weekly, tresiba 35 U qd, metformin 500 mg BID, januvia 25 mg qd, and SSIMonitor fingerstic ks TID and HgA1C as outpt. Essential hypertension 89754012 I10 stable 133/82Cont inue meds as above and amlodipine 2.5 mg qd.Monitor BP and labsDaily BPs ordered. Depressive disorder 3548 9007 F32.89 In hx.On no meds.Monit or mood.Psych consult prn. Benign pro static hyperplasia without outflow obstruction 948489062 N40.0 In hx, with some issues with retention at times.Cont inuetamsul osin 0.4 mg qd. [id number] Sonja Gibbs NP [facility] [address] 06/25/2024 10:45:21 06/28/2024 14:12:37 Asthenia 29664221 R53.1 remains with weakness to left leg and right arm06/25 right arm and left knee brace on in am and off in pm per dr anderson's ordersPT/O T eval and treat prn, off regular jean mccullough Spinal mg nosis of lumbar region 26617754 M48.062 With chronic back pain. hx of [...] and off in pmfu after MRI 07/29/24 [facility] at 1 pm sched from outside provider contPT/OT for strengthen ing, balance, gait training, safety and function prnremains barrington lift at this timeContin ue fall precaution s.Monitor for safety.Margareth mccullough pain controlCel ebrex remains on hold. Pain in right arm 847052 004 M79.601 Denies trauma or injury. feels [...] above for management Osteoarthr itis of knee 105997786 M17.12 Z96.652 LTKR originally done on 02/11remains [...] ext today on 06/17monit or Diabetes mellitus 993612 09 E11.9 Last HgA1C was 7.9 in 11/2023.Fol lowed by endocrine at [facility].with BS of 58 on 06/25 and similar on 06/23, remains asymptomat icContinue trulicity 1.5 weekly, metformin 500 mg BID, januvia 25 mg qd, and SSI06/25 decrease (degludec) tresiba 30 U qd to 26 unitsMonit or fingerstic ks TID and HgA1C as outpt. [id number] MARIE TORRES NP [facility] [address] [address] 07/01/2024 11:24:41 07/02/2024 11:53:48 Constipation 55412442 K59.09 Documented BM 06/24, 06/28Pt. states no [...] to scheduled dailyTo ER if condition worsens [id number] Sonja Gibbs NP [facility] [address] [address] 07/14/2024 13:30:49 07/16/2024 10:19:43 Diabetes mellitus 53395987 E11.9 Last HgA1C was 7.9 in 11/2023.Fol lowed by endocrine at [facility].with BS of 44 on 07/15 and similar in past, remains asymptomat icContinue trulicity 1.5 weekly, metformin 500 mg BID, januvia 25 mg qd, and SSI1/8 decrease (degludec) tresiba 26 U qd to 20 unitsMonit or fingerstic ks TID and HgA1C as outpt.of note was on 35 units of insulin in recent past Asthenia 91540010 R53.1 remains with weakness to left leg and right arm12/20 right arm and left knee brace on in am and off in pm per dr anderson's ordersPT/O T eval and treat prn, off regular therapymon itor [id number] Sonja Gibbs NP [address] [place] [address] 07/22/2024 14:17:32 07/23/2024 15:07:54 Constipation 66653328 K59.09 with regular bm per patient todayCurre ntly no abd. pain, no N/V.BS n2Pqlpcycg e fluids, dietary fiber.cont senna plus 2 tabs qdmiralax dailyhouse bowel protocol prn Diabetes mellitus 594575 09 E11.9 Last HgA1C was 7.9 in 11/2023.Fol lowed by endocrine at [facility] with multiple low BS in amContinue trulicity 1.5 weeklymetf ormin 500 mg BIDanuvia 25 mg qd, and SSI(deglud ec)tresiba 20 unitsMonit or fingerstic ks TID and HgA1C as outpt.(of note was on 35 units of insulin in recent past) Asthenia 60033752 R53.1 remains with weakness to left leg and right arm, and today with right leg weaknessri ght arm and left knee brace on in am and off in pm per dr anderson's ordersPT/O T eval and treat prn, off regular therapymon itor Spinal mg nosis of lumbar region 22486388 M48.062 With chronic back pain. hx of [...] in pmfu after MRI sched /29/08 5 [facility] at 1 pm sched from outside providerco ntPT/OT for strengthen ing, balance, gait training, safety and function prnremains barrington lift at this timeContin ue fall precaution s.Monitor for safety.Margareth mccullough pain controlCel ebrex remains on hold. Pain in right arm 767383 004 M79.601 Denies trauma or injury. feels [...] above for management Osteoarthr itis of knee 799205670 M17.12 Z96.652 LTKR originally done on 02/11remains [...] concernsmo nitor Chronic di astolic heart failure 626018554 I50.32 per hosp report of CHF.he never [...] fluid status, wts and labs. Essential hypertension 97987138 I10 stableCont inue meds as above and amlodipine 2.5 mg qd.Monitor BP and labsDaily BPs ordered. Depressive disorder 3548 9007 F32.89 In hx.On no meds.Monit or mood.Psych consult prn. Benign pro static hyperplasia without outflow obstruction 447809898 N40.0 In hx, with some issues with retention at times.Cont inuetamsul osin 0.4 mg qd. Gastroesop hageal reflux disease without esophagitis 327940103 K21.9 Using TUMS frequently for GERD/GI sx. resolvingc ontpepcid 20 mg bidMonitor sx.If remain problemati c, consider trial of PPI Nausea and vomiting 1693 2000 R11.2 resolvedse e belowzofra n 4 mg po q 6 hours prn n/v x 30 days Chronic ki dney disease stage 2 764025859 N18.2 At baseline.C ontinue to avoid nephrotoxi c meds as able.Monit or labs.Renal consult prn. Hypercholesterolemia 136 40789 E78.2 Continueat orvastatin 20 mg qdfenofibr ate 145 mg qdvascepa 2 g BID,ASA 81 mg qd.Monitor labs as outpt. [id number] Sonja Gibbs NP [address] [address] 07/30/2024 08:03:45 08/03/2024 12:50:06 Spinal stenosis of lumbar region 27255937 M48.062 With chronic back pain and weakness [...] in pmfu after cervical MRI sched 07/3107/29/24 [facility] with rec:neuros urgery consult with Dr Serna 07/30 referral to [facility] ordered as recommende d, has MRI today. contPT/OT prn, currently not working with himremains barrington lift at this timeContin ue fall precaution s.Monitor for safety.Margareth mccullough pain controlCel ebrex remains on hold. Asthenia 06627116 R53.1 remains with weakness to left leg and right arm, and today with right leg weaknessri ght arm sling and left knee brace on in am and off in pm per dr anderson's ordersPT/O T eval and treat prn, off regular jean mccullough Pain in right arm 008812 004 M79.601 Denies trauma or injury. feels [...] above for management Osteoarthr itis of knee [id number] M17.12 Z96.652 LTKR originally done on 02/11remains [...] lower ext neg for acute concernsmo nitor [id number] Sonja Gibbs NP [address] [place] [address] 08/04/2024 09:05:47 08/06/2024 09:42:06 Spinal stenosis of lumbar region [id number] M48.062 With chronic back pain and weakness [...] rec for minimally invasive spine center at [facility] appt /07/29/24 [facility] with rec:neuros [...] of c3 to the superior endplate of c5.[facility] sent pt referral:rich rios was rec for minimally invasive spine center at [facility] appt 08/09 contPT/OT prn, currently not working with himremains barrington lift at this timeContin ue fall precaution s.Monitor for safety.Mon itor pain control see belowCeleb sandip remains on hold. Asthenia [id number] R53.1 remains with weakness to left leg and right arm, and today with right leg weaknessri ght arm sling and left knee brace on in am and off in pm per dr anderson's ordersPT/O T eval and treat prn, off regular therapymon itor Pain in right arm 947732 004 M79.601 Denies trauma or injury. feels [...] above for management Osteoarthr itis of knee [id number] M17.12 Z96.652 LTKR originally done on 02/11remains [...] neg for acute concernsmo nitor Diabetes mellitus 344765 09 E11.9 Last HgA1C was 7.9 in 11/2023.Janine lowed by endocrine at [facility] with multiple low BS in am of 54, recheck BS came upContinue januvia 25 mg qdSSItruli city 1.5 weekly08/04 increase metformin 500 mg BID to 1000 mg po bid08/04 dc tresiba 20 units qhs for low BSMonitor fingerstic ks TID and HgA1C as outpt.(of note was on 35 units of insulin in recent past) Chronic pain 90451483 G8 9.29 followed by pain management here08/04 start gabapentin 100 mg po bidContinu eoxycodone 10 mg qid for painceleco xib 200 mg BIDAPAP 650 mg TID and q 4 hrs prn (NTE 3000 mg/d),Cont inue fall precaution s.Monitor for safety. Pain of left eye 1699753 001 35521 H57.12 reports left eye pain related to dropper touching his eye last nightno injuries or abnormalit y of eye notedwarm compress given at visit for comfort.mo nitor [id number] Sonja Gibbs NP [address] [address] 08/09/2024 14:58:20 08/10/2024 11:35:43 Diabetes mellitus 38099007 E11.9 Last HgA1C was 7.9 in 11/2023.Fol lowed by endocrine at [facility] with multiple low BS in am of 47, recheck BS came up to 111Continu ejanuvia 25 mg qdSSImetfo rmin 1000 mg po bid2/3 dc trulicity 1.5 weekly(not e tresiba recently dc'd)Monit or fingerstic ks TID and HgA1C as outpt.(of note was on 35 units of long acting insulin in recent past) Chronic pain 19013577 G8 9.29 followed by pain management herecontga bapentin 100 mg po bidoxycodo ne 10 mg qid for painceleco xib 200 mg BIDAPAP 650 mg TID and q 4 hrs prn (NTE 3000 mg/d),Cont inue fall precaution s.Monitor for safety. Spinal mg nosis of lumbar region 57869027 M48.062 With chronic back pain and weakness [...] rec for minimally invasive spine center at [facility] appt 08/0907/29/24 [facility] with rec:neuros [...] of c3 to the superior endplate of c5.[facility] sent pt referral:rich rios was rec for minimally invasive spine center at [facility] appt 08/09 08/04 referral to [facility] ordered [...] see belowCeleb sandip remains on hold. Asthenia [id number] R53.1 remains with weakness to left leg and right arm, and today with right leg weaknessri ght arm sling and left knee brace on in am and off in pm per dr anderson's ordersPT/O T eval and treat prn, off regular therapymon itor Pain in right arm 391216 004 M79.601 Denies trauma or injury. feels [...] above for management Osteoarthr itis of knee [id number] M17.12 Z96.652 LTKR originally done on 02/11remains [...] lower ext neg for acute concernsmo nitor [id number] Sonja Gibbs, DIAMOND [address] [address] 08/20/2024 10:30:03 08/23/2024 10:20:02 Chronic pain 17852253 G89.29 followed by pain management herecontga bapentin 100 mg po bidoxycodo ne 10 mg qid for painceleco xib 200 mg BIDAPAP 650 mg TID and q 4 hrs prn (NTE 3000 mg/d),Cont inue fall precaution s.Monitor for safety. Spinal mg nosis of lumbar region 99438056 M48.062 With chronic back pain and weakness [...] rec for minimally invasive spine center at [facility] appt 08/0907/29/24 [facility] with rec:neuros [...] of c3 to the superior endplate of c5.[facility] sent pt referral:rich rios was rec for minimally invasive spine center at [facility] appt 08/09 08/04 referral to [facility] ordered as recommende d with MRI results back today 08/04 from 07/30 08/09 awaiting consult from spine center08/11 fu appoint at minimally invasive spine center to discuss options08/07 Dr Aleisha padilla (neurosurg [place]) dc' [facility] spine center with Dr. Isabel did a [...] see belowCeleb sandip remains on hold. Asthenia [id number] R53.1 remains with weakness to left leg and right arm, and today with right leg weaknessri ght arm sling and left knee brace on in am and off in pm per dr anderson's ordersPT/O T eval and treat prn, off regular therapymon itor [id number] Sonja Gibbs NP [address] [address] 08/23/2024 09:57:33 08/24/2024 15:31:28 Spinal stenosis of lumbar region 53797285 M48.062 With chronic back pain and weakness [...] rec for minimally invasive spine center at [facility] appt 08/0907/29/24 [facility] with rec:neuros [...] of c3 to the superior endplate of c5.[facility] sent pt referral:rich rios was rec for minimally invasive spine center at [facility] appt 08/09 08/04 referral to [facility] ordered as recommende d with MRI results back today 08/04 from 07/30 08/09 awaiting consult from spine center08/11 fu appoint at minimally invasive spine center to discuss options08/07 Dr Aleisha padilla (neurosurg [place]) dc' [facility] spine center with Dr. Isabel did a [...] belowCeleb sandip remains on hold. Chronic pain 79473517 G8 9.29 followed by pain management herecontga bapentin 100 mg po bidoxycodo ne 10 mg qid for painceleco xib 200 mg BIDAPAP 650 mg TID and q 4 hrs prn (NTE 3000 mg/d),Cont inue fall precaution s.Monitor for safety. Difficulty swallowing 28 9185111 R13.10 08/23 startpredn isone 40 mg po [...] and follow labs and for diff swallowing [id number] Sonja Gibbs NP [address] [address] 08/26/2024 10:35:53 08/27/2024 16:16:23 Spinal stenosis of lumbar region 59874185 M48.062 With chronic back pain and weakness [...] rec for minimally invasive spine center at [facility] appt 08/0907/29/24 [facility] with rec:neuros [...] of c3 to the superior endplate of c5.[facility] sent pt referral:rich rios was rec for minimally invasive spine center at [facility] appt 08/09 08/04 referral to [facility] ordered as recommende d with MRI results back today 08/04 from 07/30 08/09 awaiting consult from spine center08/11 fu appoint at minimally invasive spine center to discuss options08/07 Dr Aleisha padilla (neurosurg [place]) dc'd2/13 [facility] spine center with Dr. Isabel did a [...] lipid profile for 08/27 Difficulty swallowing 28 8546829 R13.10 08/26 contpredni sone 40 mg po [...] as it is too big Chronic pain 36126825 G8 9.29 followed by pain management herecontga bapentin 100 mg po bidoxycodo ne 10 mg qid for painceleco xib 200 mg BIDAPAP 650 mg TID and q 4 hrs prn (NTE 3000 mg/d),Cont inue fall precaution s.Monitor for safety. Hypercholesterolemia 136 53746 E78.2 Continueat orvastatin 20 mg qdfenofibr ate 145 mg qdvascepa 2 g BID,ASA 81 mg qd.Monitor labs as outpt.lipi d profile to assess need for all meds above 08/27 [id number] Sonja Gibbs NP [address] [place] [address] 09/09/2024 12:10:04 09/14/2024 08:43:09 Spinal stenosis of lumbar region 06641592 M48.062 With chronic back pain and weakness [...] rec for minimally invasive spine center at [facility] appt 08/0907/29/24 [facility] with rec:neuros [...] of c3 to the superior endplate of c5.[facility] sent pt referral:rich rios was rec for minimally invasive spine center at [facility] appt 08/09 08/04 referral to [facility] ordered as recommende d with MRI results back today 08/04 from 07/30 08/09 awaiting consult from spine center08/11 fu appoint at minimally invasive spine center to discuss options08/07 Dr Aleisha padilla (neurosurg [place]) dc' [facility] spine center with Dr. Isabel did a [...] sandip remains on hold. Difficulty swallowing 28 7808550 R13.10 09/09 contcomple christin prednisone rackman consult for easy to swallow foodsgluce rna tid with meals until able to tolerate foodsliqui d and puree diet until able to louise, and advancespe ech consult for diff swallowing asa resumed on 08/26monito r closely and follow labs and for diff swallowing he is not able to louise vescepa as it is too big Chronic pain 07845159 G8 9.29 followed by pain management herecontga bapentin 100 mg po bidoxycodo ne 10 mg qid for painceleco xib 200 mg BIDAPAP 650 mg TID and q 4 hrs prn (NTE 3000 mg/d),Cont inue fall precaution s.Monitor for safety. [id number] Prince Le MD [address] [address] 09/11/2024 11:45:11 09/14/2024 09:51:44 Difficulty swallowing 914060197 R13.12 speech to followmoni tor aspiration risk and need to further adjust diet Spinal mg nosis in cervical region 94033329 M48.02 underwent anterior cervical discectomy and fusion with good effectmoni tor sxupdate surgery with concerns Essential hypertension 06228137 I10 hydralazin e 25 mg tidlasix 40 mg qdnorvasc 2.5 mg qdbenazapr il 40 mg qdmonitor bp and need to titrate [id number] [facility] [address] 09/22/2024 08:30:03 09/24/2024 14:43:14 Spinal stenosis in cervical region 62990799 M48.02 underwent anterior cervical discectomy and fusion with good effect with increased rom to right shoulder and remains with bilateral lower ext weakness, but reports improved feelingmon itor sxpt ot eval and treatupdat e surgery with concerns Difficulty swallowing 28 0177028 R13.12 seems to be improving. speech to followmoni tor aspiration risk and need to further adjust diet Acute left otitis media 755793457 H66.92 pt is allergic to pcn3/19sta rt levaquin 750 mg po qd x 10 days with probioticm onitor Persistent cough 0765952 02 R05.3 pt with persistant resp cough for a few weeks and now with thick green sputumwill get cxr to ro pnaalready on abx above as ordered for otitis media, but may help with this alsomonito r vitals, temp and resp statusrobi tussin prnmucinex 600 mg po bid x 10 days [id number] Sonja Gibbs NP [facility] [address] [place] [address] 09/30/2024 09:47:39 10/04/2024 11:25:27 Persistent cough 904802029 R05.3 resolveddc robitussin prndc mucinex 600 mg po bid x 10 days Difficulty swallowing 28 8268542 R13.12 resolvedmo nitor aspiration risk and need to further adjust diet Acute left otitis media 310981710 H66.92 pt is allergic to pcncont levaquin 750 mg po qd x 10 days with probioticm onitor Spinal mg nosis in cervical region 59370724 M48.02 underwent anterior cervical discectomy and fusion with good effect with increased rom to right shoulder and remains with bilateral lower ext weakness, but reports improved feelingmon itor sxpt ot eval and treatupdat e surgery with concerns Essential hypertension 21434950 I10 bp on low side todaycont hydralazin e 25 mg tiddc norvasc 2.5 mg qdcont benazapril 40 mg qddecrease lasix to 20 mg po qdmonitor bp and need to titrate Spinal mg nosis of lumbar region 14152021 M48.062 With chronic back pain and weakness [...] rec for minimally invasive spine center at [facility] appt 23 07/29/24 [facility] with rec:neuros [...] of c3 to the superior endplate of c5.[facility] sent pt referral:rich rios was rec for minimally invasive spine center at [facility] appt 08/09 08/04 referral to [facility] ordered as recommende d with MRI results back today 08/04 from 07/30 08/09 awaiting consult from spine center2 fu appoint at minimally invasive spine center to discuss options08/07 Dr Aleisha padilla (neurosurg [place]) dc'/ [facility] spine center with Dr. Isabel did a [...] belowCeleb sandip remains on hold. Chronic pain 68263801 G8 9.29 followed by pain management here and pt requests to dc tylcont3/2 7 increase gabapentin from 100 mg po bid to 200mg po bid3.27 dc APAP 650 mg TIDcontoxy codone 10 mg qid for paincont tyl 650 q 4 hrs prncont cyclobenza tutu 1 tab bidContinu e fall precaution s.Monitor for safety. Hypercholesterolemia 136 52770 E78.2 pt requests to dc vascepa, will cont other medsContin ueatorvast atin 20 mg qdfenofibr ate 145 mg qdASA 81 mg qd.Monitor labs as outpt.lipi d profile on 11/10/24 to eval Benign pro static hyperplasia without outflow obstruction 799206785 N40.0 In hx, with some issues with retention at times however none lately and will trial dc todaydc tamsulosin 0.4 mg qd. [id number] Sonja Gibbs NP [address] [address] 10/06/2024 16:43:50 10/08/2024 14:42:40 Spinal stenosis in cervical region 70293529 M48.02 underwent anterior cervical discectomy and fusion with good effect with increased rom to right shoulder and remains with bilateral lower ext weakness, but reports improved feelingmon itor sxpt ot eval and treatupdat e surgery with concerns Essential hypertension 83056403 I10 bp on low side today 84/50 [...] titrate Spinal mg nosis of lumbar region 32906238 M48.062 With chronic back pain and weakness [...] rec for minimally invasive spine center at [facility] appt 08/0907/29/24 [facility] with rec:neuros [...] of c3 to the superior endplate of c5.[facility] sent pt referral:rich rios was rec for minimally invasive spine center at [facility] appt 08/09 08/04 referral to [facility] ordered as recommende d with MRI results back today 08/04 from 07/30 08/09 awaiting consult from spine center08/11 fu appoint at minimally invasive spine center to discuss options08/07 Dr Aleisha padilla (neurosurg [place]) dc' [facility] spine center with Dr. Isabel did a [...] belowCeleb sandip remains on hold. Chronic pain 18088140 G8 9.29 followed by pain management contoxycod one 10 mg qid for paincont tyl 650 q 4 hrs prncont cyclobenza tutu 10mg 1 tab bidContinu e fall precaution s.Monitor for safety. [id number] Sonja Gibbs NP [address] [address] 10/07/2024 08:31:54 10/08/2024 14:57:59 Essential hypertension 31092521 I10 bp on low side x2 days [...] BELOW Spinal mg nosis in cervical region 70916874 M48.02 underwent anterior cervical discectomy and fusion with good effect with increased rom to right shoulder and remains with bilateral lower ext weakness, but reports improved feelingmon itor sxpt ot eval and treatupdat e surgery with concerns Spinal mg nosis of lumbar region 23630670 M48.062 With chronic back pain and weakness [...] rec for minimally invasive spine center at [facility] appt 08/0907/29/24 [facility] with rec:neuros [...] of c3 to the superior endplate of c5.[facility] sent pt referral:rich rios was rec for minimally invasive spine center at [facility] appt 08/09 08/04 referral to [facility] ordered as recommende d with MRI results back today 08/04 from 07/30 08/09 awaiting consult from spine center08/11 fu appoint at minimally invasive spine center to discuss options08/07 Dr Aleisha padilla (neurosurg [place]) dc' [facility] spine center with Dr. Isabel did a [...] belowCeleb sandip remains on hold. Chronic pain 24664546 G8 9.29 followed by pain management contoxycod one 10 mg qid for paincont tyl 650 q 4 hrs prncont cyclobenza tutu 10mg 1 tab bid , hold for sbp <100Contin ue fall precaution s.Monitor for safety. Low blood pressure 57331 003 R03.1 [id number] see above without known sourceA DDEDUM SEND [...] Richardson Member ID Guarantor Name 05/21/2024 1 [facility] PLAN - [facility]HMO[facility] Carlos Cabrera [id number] Carlos Cabrera 05/21/2024 1 [place] [facility] Carlos Cabrera [id number] Carlos Cabrera 05/21/2024 1 [place] B-[place]: [employer] Carlos Cabrera [id number] Carlos Cabrera 05/21/[address] [facility] - DUAL ELIGIBLE - [facility] (MEDICARE REPLACEMENT/AD VANTAGE - HMO) Carlos Cabrera [id number] Carlos Cabrera 12/14/2024 1 [facility] - DOS ON OR AFTER 2022 - MEDICARE ADVANTAGE [place] (MEDICARE REPLACEMENT/AD VANTAGE - PPO) Carlos Cabrera [id number] Carlos Cabrera Notes Date Note Type Note Provider Name and Address Organization Details Recorded Time 09/11/2024 text/html Patient is a 68 yo male resident due for routine rounding visit. Patient recently underwent anterior cervical discectomy and fusion with good effect. PMH significant for htn, dm, chf Prince Le MD [address] [place] [address], [address], [place], [address], [facility] - [facility] 09/11/2024 11:52:10 09/22/2024 text/html Pt is [...] infection noted. Wax noted bilaterally. On exam, aCrlos denies any fever, chills, or diff breathing but remains with complaint of left ear pain and green sputum. vitals stable. afebrile. Remains with bilateral lower leg weakness and right arm decreased rom. States pain is tolerable. Reports swallowing is better in general. Sonja Gibbs NP [address] [place] [address], [address], [place], [address], [employer] 09/22/2024 10:55:29 09/30/2024 text/html Pt is seen [...] lower extremities today. Sonja Gibbs NP [address] [facility], [address], [place], [address], [employer] 09/30/2024 10:12:58 10/06/2024 text/html Pt is seen [...] Meds adjusted accordingly. Sonja Gibbs NP [address] [facility], [address], [place], [address], [employer] 10/06/2024 18:02:57 10/07/2024 text/html Pt is seen [...] remains in 80s Sonja Gibbs NP [address] [facility], [address], [place], [address], [facility] - [facility] 10/07/2024 13:39:06
--- OUTSIDE RECORDS SUMMARY | 2025-05-10 17:00 | XMS_ITS | Encounter Summary ---
Author Organization [facility] Address [address] [place] [address] Care Team Providers Care Nursing Specialist Name Role Phone Tram Álvarez MD Primary Care Provider [phone] Encounter Details Date Type Department Care Team (Late st Contact Info) Description 11/11/[address] [facility] - Main Lab [address] [place] [address] Preeti Lujan MD [address] [phone] Chronic kidney disease, unspecified Social History Tobacco [...] LAB CHEMISTRY METHOD 11/11/2024 11:[address] [facility] Potassium 4.2 3.5 - 5.5 mmol/L LAB CHEMISTRY METHOD 11/11/2024 11:[address] [facility] Chloride 110 96 - 110 mmol/L LAB CHEMISTRY METHOD 11/11/2024 11:32 AM [facility] CO2 22 21 - 32 mmol/L LAB CHEMISTRY METHOD 11/11/2024 11:32 AM [facility] Anion Gap 9 3 - 11 LAB CHEMISTRY METHOD 11/11/2024 11:32 AM [facility] Glucose 177(H) 70 - 100 mg/dL LAB CHEMISTRY METHOD 11/11/2024 11:32 AM [facility] BUN 20 5 - 25 mg/dL LAB CHEMISTRY METHOD 11/11/2024 11:32 AM [facility] Creatinine 0.67(L) 0.70 - 1.30 mg/dL LAB CHEMISTRY METHOD 11/11/2024 11:32 AM [facility] eGFR 101 >=60 mL/min/1. 73m2 LAB CHEMISTRY METHOD 11/11/2024 11:32 AM [facility] Comment:Calculation based on the Chronic Kidney Disease Epidemiology Collaboration (CKD-EPI) equation refit without adjustment for race. BUN/Creatinine Ratio 29.9 LAB CHEMISTRY METHOD 11/11/2024 11:32 AM [facility] Calcium 8.7 8.5 - 10.5 mg/dL LAB CHEMISTRY METHOD 11/11/2024 11:32 AM [facility] Blood Venous blood specimen / Unknown Venipuncture / Unknown 11/11/2024 6:41 AM EDT 11/11/2024 9:11 AM EDT us Preeti Lujan MD LAB BLOOD ORDERABLES Fin al Result [facility] [address] [place] [address], * (ABNORMAL) Complete blood count (11/11/2024 6:41 AM EDT) WBC 8.1 4.8 - 10.8 K/mcL LAB HEMETOLOGY METHOD 11/11/2024 10:28 AM [facility] RBC 3.80(L) 4.50 - 5.50 M/mcL LAB HEMETOLOGY METHOD 11/11/2024 10:28 AM [facility] Hemoglobin 11.5(L) 13.5 - 17.5 g/dL LAB HEMETOLOGY METHOD 11/11/2024 10:28 AM [facility] Hematocrit 35.8(L) 42.0 - 54.0 % LAB HEMETOLOGY METHOD 11/11/2024 10:28 AM [facility] MCV 93.2 79.0 - 98.0 FL LAB HEMETOLOGY METHOD 11/11/2024 10:28 AM [facility] MCH 29.9 27.0 - 32.0 pcg LAB HEMETOLOGY METHOD 11/11/2024 10:28 AM [facility] MCHC 32.1 32.0 - 37.0 g/dL LAB HEMETOLOGY METHOD 11/11/2024 10:28 AM [facility] RDW 16.4(H) 11.0 - 15.0 % LAB HEMETOLOGY METHOD 11/11/2024 10:28 AM [facility] Platelets 314 130 - 400 K/[facility] LAB HEMETOLOGY METHOD 11/11/2024 10:28 AM [facility] MPV 12.3(H) 7.0 - 11.0 FL LAB HEMETOLOGY METHOD 11/11/2024 10:28 AM [facility] NRBC 0.0 <1.0 % LAB HEMETOLOGY METHOD 11/11/2024 10:28 AM [facility] NRBC Absolute 0.00 <0.10 K/mcL LAB HEMETOLOGY METHOD 11/11/2024 10:[address] [facility] Blood Venous blood specimen / Unknown Venipuncture / Unknown 11/11/2024 6:41 AM EDT 11/11/2024 9:11 AM EDT us Preeti Lujan MD LAB BLOOD ORDERABLES Fin al Result [facility] [address] [place] [address], documented in this encounter Visit Diagnoses Diagnosis Chronic kidney disease, unspecified documented in this encounter Care Teams Nursing Specialist Relationship Specialty Start Date End Date Tram Álvarez MD 2 [facility] [address] Physician Associ D/B/A: [facility] [place], [place] PCP - General Internal Medicine 03/30/18 documented as of this encounter
--- OUTSIDE RECORDS SUMMARY | 2025-05-10 17:00 | XMS_ITS | Encounter Summary ---
Author Organization [facility] Address [address] [place] [address] Care Team Providers Care Drill Press Set Up Operator Name Role Phone Tram Álvarez MD Primary Care Provider [phone] Encounter Details Date Type Department Care Team (Late st Contact Info) Description 11/11/2024 Lab Requisition [facility] - Main Lab [address] [place] [address] Shonda Brenner MD [address] [place] [id number] Unspecified abdominal pain Social History Tobacco Use [...] reflex microscopic (11/11/2024 12:00 AM EDT) Specific [place] Urine 1.014 1.003 - 1.030 LAB URINALYSIS - AUTOMATED METHOD 11/11/2024 11:33 AM EDT [facility] pH, Urine 7.0 5.0 - 8.0 pH LAB URINALYSIS - AUTOMATED METHOD 11/11/2024 11:33 AM [facility] Leukocytes, Urine Large(A) Negative LAB URINALYSIS - AUTOMATED METHOD 11/11/2024 11:33 AM [facility] Nitrite, Urine Negative Negative LAB URINALYSIS - AUTOMATED METHOD 11/11/2024 11:33 AM [facility] Protein, Urine Trace <=Trace mg/dL LAB URINALYSIS - AUTOMATED METHOD 11/11/2024 11:33 AM [facility] Glucose, Urine Negative Negative mg/dL LAB URINALYSIS - AUTOMATED METHOD 11/11/2024 11:33 AM [facility] Ketones, Urine Negative Negative mg/dL LAB URINALYSIS - AUTOMATED METHOD 11/11/2024 11:33 AM [facility] Urobilinogen, Urine 0.2 0.2 - 1.0 mg/dL LAB URINALYSIS - AUTOMATED METHOD 11/11/2024 11:33 AM [facility] Bilirubin, Urine Negative Negative LAB URINALYSIS - AUTOMATED METHOD 11/11/2024 11:33 AM [facility] Blood, Urine Negative Negative LAB URINALYSIS - AUTOMATED METHOD 11/11/2024 11:33 AM [facility] RBC, Urine 3.0 0 - 4 /HPF LAB URINALYSIS - AUTOMATED METHOD 11/11/2024 11:33 AM [facility] WBC, Urine 57.5(H) 0 - 4 /HPF LAB URINALYSIS - AUTOMATED METHOD 11/11/2024 11:33 AM [facility] Squamous Epithelial, Urine >100(H) 0 - 60 /LPF LAB URINALYSIS - AUTOMATED METHOD 11/11/2024 11:33 AM [facility] Bacteria, Urine Negative Negative /HPF LAB URINALYSIS - AUTOMATED METHOD 11/11/2024 11:33 AM EDT [facility] Hyaline Casts, Urine 2.0 0 - 3 /LPF LAB URINALYSIS - AUTOMATED METHOD 11/11/2024 11:33 AM EDT [facility] Urine Urine specimen obtained by clean catch procedure / Unknown Non-blood Collection / Unknown 11/11/2024 11/11/2024 9:44 AM EDT us Shonda Brenner MD LAB URINE ORDERABLES Final Resu lt Performing Organization Address [facility]/ZIP Co de Phone Number [facility] [address] [place] [address], [place] [phone] * Culture urine (11/11/2024 12:00 AM EDT) Culture, Urine <10,000 CFU/mL gram negative bacilli, insignificant count, no further workup 11/12/2024 8:43 AM EDT [facility] Urine Urine specimen obtained by clean catch procedure / Unknown Non-blood Collection / Unknown 11/11/2024 11/11/2024 9:44 AM EDT us Shonda Brenner MD LAB MICROBIOLOGY - GENERAL ORDE RABLES Final Result Performing Organization Address [facility]/ZIP Co de Phone Number [facility] [address] [place] [address], [place] [phone] documented in this encounter Visit Diagnoses Diagnosis Unspecified abdominal pain documented in this encounter Care Teams Drill Press Set Up Operator Relationship Specialty Start Date End Date Tram Álvarez MD 2 [facility] [address] Physician Associ D/B/A: [facility] JAS Duque PCP - General Internal Medicine 03/30/18 documented as of this encounter
--- OUTSIDE RECORDS SUMMARY | 2025-05-10 17:00 | XMS_ITS | Encounter Summary ---
Author Organization [facility] Address [address] [place] [address] Care Team Providers Care Director Of Field Coordination Name Role Phone Tram Álvarez MD Primary Care Provider [phone] Encounter Details Date Type Department Care Team (Late st Contact Info) Description 05/14/2024 Lab Requisition [facility] - Main Lab [address] [place] [address] Prince Le MD 38 [facility] [address] [place], [phone] Essential (primary) hypertension Social History Tobacco [...] LAB CHEMISTRY METHOD 05/17/2024 10:[address] [facility] Potassium 4.5 3.5 - 5.5 mmol/L LAB CHEMISTRY METHOD 05/17/2024 10:[address] [facility] Chloride 110 96 - 110 mmol/L LAB CHEMISTRY METHOD 05/17/2024 10:43 AM [facility] CO2 27 21 - 32 mmol/L LAB CHEMISTRY METHOD 05/17/2024 10:43 AM [facility] Anion Gap 6 3 - 11 LAB CHEMISTRY METHOD 05/17/2024 10:43 AM [facility] Glucose 99 70 - 100 mg/dL LAB CHEMISTRY METHOD 05/17/2024 10:43 AM [facility] BUN 37(H) 5 - 25 mg/dL LAB CHEMISTRY METHOD 05/17/2024 10:43 AM [facility] Creatinine 1.29 0.70 - 1.30 mg/dL LAB CHEMISTRY METHOD 05/17/2024 10:43 AM [facility] eGFR 60 >=60 mL/min/1. 73m2 LAB CHEMISTRY METHOD 05/17/2024 10:43 AM [facility] Comment:Calculation based on the Chronic Kidney Disease Epidemiology Collaboration (CKD-EPI) equation refit without adjustment for race. BUN/Creatinine Ratio 28.7 LAB CHEMISTRY METHOD 05/17/2024 10:43 AM [facility] Calcium 9.3 8.5 - 10.5 mg/dL LAB CHEMISTRY METHOD 05/17/2024 10:43 AM [facility] Blood Venous blood specimen / Unknown Venipuncture / Unknown 05/17/2024 6:41 AM EST 05/17/2024 9:49 AM EST us Prince Le MD LAB BLOOD ORDERABLES Final Resul t [facility] [address] [place] [address], * (ABNORMAL) Complete blood count (05/17/2024 6:41 AM EST) WBC 9.0 4.8 - 10.8 K/mcL LAB HEMETOLOGY METHOD 05/17/2024 10:23 AM [facility] RBC 5.50 4.50 - 5.50 M/mcL LAB HEMETOLOGY METHOD 05/17/2024 10:23 AM [facility] Hemoglobin 15.0 13.5 - 17.5 g/dL LAB HEMETOLOGY METHOD 05/17/2024 10:23 AM [facility] Hematocrit 48.3 42.0 - 54.0 % LAB HEMETOLOGY METHOD 05/17/2024 10:23 AM [facility] MCV 88.0 79.0 - 98.0 FL LAB HEMETOLOGY METHOD 05/17/2024 10:23 AM [facility] MCH 27.3 27.0 - 32.0 pcg LAB HEMETOLOGY METHOD 05/17/2024 10:23 AM [facility] MCHC 31.1(L) 32.0 - 37.0 g/dL LAB HEMETOLOGY METHOD 05/17/2024 10:23 AM [facility] RDW 16.6(H) 11.0 - 15.0 % LAB HEMETOLOGY METHOD 05/17/2024 10:23 AM [facility] Platelets 240 130 - 400 K/mcL LAB HEMETOLOGY METHOD 05/17/2024 10:23 AM [facility] MPV 13.4(H) 7.0 - 11.0 FL LAB HEMETOLOGY METHOD 05/17/2024 10:23 AM [facility] NRBC 0.0 <1.0 % LAB HEMETOLOGY METHOD 05/17/2024 10:23 AM [facility] NRBC Absolute 0.00 <0.10 K/mcL LAB HEMETOLOGY METHOD 05/17/2024 10:23 AM [facility] Blood Venous blood specimen / Unknown Venipuncture / Unknown 05/17/2024 6:41 AM EST 05/17/2024 9:51 AM EST us Prince Le MD LAB BLOOD ORDERABLES Final Resul t [facility] [address] [place] [address], [place] [phone] documented in this encounter Visit Diagnoses Diagnosis Essential (primary) hypertension Unspecified essential hypertension documented in this encounter Care Teams Director Of Field Coordination Relationship Specialty Start Date End Date Tram Álvarez MD [address] [place] [address] , [address] [facility] Physician Associ D/B/A: [facility] JAS Duque PCP - General Internal Medicine 03/30/18 documented as of this encounter
--- OUTSIDE RECORDS SUMMARY | 2025-05-10 17:00 | XMS_ITS | Encounter Summary ---
Author Organization [facility] Address [address] [place] [address] Care Team Providers Care Bone Tender Name Role Phone Tram Álvarez MD Primary Care Provider [phone] Encounter Details Date Type Department Care Team (Late st Contact Info) Description 11/05/2024 Lab Requisition [facility] - Main Lab [address] [place] [address] Preeti Lujan MD [address] [phone] Pneumonia, unspecified organism Social History Tobacco Use [...] LAB CHEMISTRY METHOD 11/05/2024 11:23 AM EDT [facility] Potassium 3.8 3.5 - 5.5 mmol/L LAB CHEMISTRY METHOD 11/05/2024 11:[address] [facility] Chloride 112(H) 96 - 110 mmol/L LAB CHEMISTRY METHOD 11/05/2024 11:[address] [facility] CO2 19(L) 21 - 32 mmol/L LAB CHEMISTRY METHOD 11/05/2024 11:[address] [facility] Anion Gap 11 3 - 11 LAB CHEMISTRY METHOD 11/05/2024 11:[address] [facility] Glucose 121(H) 70 - 100 mg/dL LAB CHEMISTRY METHOD 11/05/2024 11:[address] [facility] BUN 22 5 - 25 mg/dL LAB CHEMISTRY METHOD 11/05/2024 11:[address] [facility] Creatinine 0.58(L) 0.70 - 1.30 mg/dL LAB CHEMISTRY METHOD 11/05/2024 11:[address] [facility] eGFR 106 >=60 mL/min/1. 73m2 LAB CHEMISTRY METHOD 11/05/2024 11:[address] [facility] Comment:Calculation based on the Chronic Kidney Disease Epidemiology Collaboration (CKD-EPI) equation refit without adjustment for race. BUN/Creatinine Ratio 37.9 LAB CHEMISTRY METHOD 11/05/2024 11:[address] [facility] Calcium 9.3 8.5 - 10.5 mg/dL LAB CHEMISTRY METHOD 11/05/2024 11:[address] [facility] Blood Venous blood specimen / Unknown Venipuncture / Unknown 11/05/2024 8:07 AM EDT 11/05/2024 9:58 AM EDT us Preeti Lujan MD LAB BLOOD ORDERABLES Fin al Result [facility] [address] [place] [address], documented in this encounter Visit Diagnoses Diagnosis Pneumonia, unspecified organism documented in this encounter Care Teams Bone Tender Relationship Specialty Start Date End Date Tram Álvarez MD 2 [facility] , [address] [facility] Physician Associ D/B/A: [place] [facility] JAS Duque PCP - General Internal Medicine 03/30/18 documented as of this encounter
--- OUTSIDE RECORDS SUMMARY | 2025-05-10 17:00 | XMS_ITS | Clinical Summary ---
Author Organization [facility] Address [address] [place] [address] Care Team Providers Care Grinder Lap Name Role Phone Tram Royal MD Primary [...] age to complete this topic Care Teams Grinder Lap Relationship Specialty Start Date End Date Tram Royal MD 2 [facility] , [address] [facility] Physician Associ D/B/A: [facility] [place] [address] PCP - General Internal Medicine 03/30/18
--- OUTSIDE RECORDS SUMMARY | 2025-05-10 17:00 | XMS_ITS | Encounter Summary ---
Author Organization [facility] Address [address] [place] [address] Care Team Providers Care Regional Education Coordinator Name Role Phone Tram Álvarez MD Primary Care Provider [phone] Encounter Details Date Type Department Care Team (Late st Contact Info) Description 11/18/2024 Lab Requisition [facility] - Main Lab [address] [place] [address] Preeti Lujan MD [address] [phone] Chronic kidney disease, stage 3 unspecified (CMS/HCC [...] LAB CHEMISTRY METHOD 11/18/2024 10:12 AM EDT [facility] Potassium 4.6 3.5 - 5.5 mmol/L LAB CHEMISTRY METHOD 11/18/2024 10:12 AM [facility] Chloride 112(H) 96 - 110 mmol/L LAB CHEMISTRY METHOD 11/18/2024 10:12 AM [facility] CO2 25 21 - 32 mmol/L LAB CHEMISTRY METHOD 11/18/2024 10:12 AM [facility] Anion Gap 6 3 - 11 LAB CHEMISTRY METHOD 11/18/2024 10:12 AM [facility] Glucose 105(H) 70 - 100 mg/dL LAB CHEMISTRY METHOD 11/18/2024 10:12 AM [facility] BUN 26(H) 5 - 25 mg/dL LAB CHEMISTRY METHOD 11/18/2024 10:12 AM [facility] Creatinine 0.63(L) 0.70 - 1.30 mg/dL LAB CHEMISTRY METHOD 11/18/2024 10:12 AM [facility] eGFR 103 >=60 mL/min/1. 73m2 LAB CHEMISTRY METHOD 11/18/2024 10:12 AM [facility] Comment:Calculation based on the Chronic Kidney Disease Epidemiology Collaboration (CKD-EPI) equation refit without adjustment for race. BUN/Creatinine Ratio 41.3 LAB CHEMISTRY METHOD 11/18/2024 10:12 AM [facility] Calcium 8.8 8.5 - 10.5 mg/dL LAB CHEMISTRY METHOD 11/18/2024 10:12 AM [facility] Blood Venous blood specimen / Unknown Venipuncture / Unknown 11/18/2024 6:05 AM EDT 11/18/2024 9:23 AM EDT us Preeti Lujan MD LAB BLOOD ORDERABLES Fin al Result [facility] [address] [place] [address], documented in this encounter Visit Diagnoses Diagnosis Chronic kidney disease, stage 3 unspecified (CMS/[facility] V24, [facility] V28) Spinal stenosis, lumbar region without neurogenic claudication documented in this encounter Care Teams Regional Education Coordinator Relationship Specialty Start Date End Date Tram Álvarez MD 2 [facility] , [facility] [address] [facility] Physician Associ D/B/A: [facility] JAS Duque PCP - General Internal Medicine 03/30/18 documented as of this encounter
--- OUTSIDE RECORDS SUMMARY | 2025-05-10 17:00 | XMS_ITS | Clinical Summary ---
Author Organization [facility] Address [address] [place] [address] Phone Care Team Providers Care Perioperative Tech Name Role Phone Tram Álvarez MD Primary Care Provider [phone] Encounters Date Type Department Care Team Description 04/27/2025 Lab Requisition [facility] [address] [place] [phone] Preeti Lujan MD Essential (primary) hypertension; Other disorders of electrolyte and fluid balance, not elsewhere classified 03/01/2025 Lab Requisition [facility] [address] [place] [phone] Preeti Lujan MD Essential (primary) hypertension 02/24/2025 Lab Requisition [facility] [address] [place] [phone] Preeti Lujan MD Essential (primary) hypertension from [...] 10/04/1965 Diabetes: Annual Retina Eye Exam 10/04/1965 RSV Immunization Adult Patients (1 - Risk 50-74 years 1-dose series) 10/04/2005 Zoster Vaccines (1 of 2) 10/04/2005 Pneumococcal [...] 10/22/2024 Diabetes: Annual GFR (Glomerular Filtration Rate) 04/27/2026 04/27/2025, 03/01/2025, 02/24/2025, Additional history exists Hypertension/CHF/CAD Annual BMP Blood Test 04/27/2026 04/27/2025, 03/01/2025, 02/24/2025, Additional history exists Cholesterol Screening (Lipid Panel) [...] Associated Diagnosis Comments BASIC METABOLIC PANEL Routine 04/27/2025 6:36 AM EDT Essential (primary) hypertension Other disorders of electrolyte and fluid balance, not elsewhere classified COMPLETE BLOOD COUNT Routine 04/27/2025 6:36 AM EDT Essential (primary) hypertension Other disorders of electrolyte and fluid balance, not elsewhere classified BASIC METABOLIC PANEL Routine 03/01/2025 6:05 AM EDT Essential (primary) hypertension BASIC METABOLIC PANEL Routine 02/24/2025 6:34 AM EDT Essential (primary) hypertension COMPLETE BLOOD COUNT Routine 02/24/2025 6:34 AM EDT Essential (primary) hypertension HEMOGLOBIN A1C Routine 10/22/2024 6:43 AM EDT Type 2 diabetes mellitus without complications ([facility] V24, [facility] V28) LIPID PANEL WITH REFLEX TO DIRECT LDL Routine 08/27/2024 6:34 AM EST Type 2 diabetes mellitus without complications ([facility]) from Last 3 Months or Most Recently Relevant to Health Maintenance Results * (ABNORMAL) Complete blood count (04/27/2025 6:36 AM EDT) Only the most recent of2 resultswithin the time period is included. [facility] WBC 8.1 4.8 - 10.8 K/mcL LAB HEMETOLOGY METHOD 04/27/2025 9:53 AM [facility] RBC 4.40(L) 4.50 - 5.50 M/mcL LAB HEMETOLOGY METHOD 04/27/2025 9:53 AM [facility] Hemoglobin 12.6(L) 13.5 - 17.5 g/dL LAB HEMETOLOGY METHOD 04/27/2025 9:53 AM [facility] Hematocrit 40.2(L) 42.0 - 54.0 % LAB HEMETOLOGY METHOD 04/27/2025 9:53 AM [facility] MCV 91.8 79.0 - 98.0 FL LAB HEMETOLOGY METHOD 04/27/2025 9:53 AM EDT [facility] MCH 28.8 27.0 - 32.0 pcg LAB HEMETOLOGY METHOD 04/27/2025 9:53 AM EDT [facility] MCHC 31.3(L) 32.0 - 37.0 g/dL LAB HEMETOLOGY METHOD 04/27/2025 9:53 AM EDT [facility] RDW 15.0 11.0 - 15.0 % LAB HEMETOLOGY METHOD 04/27/2025 9:53 AM EDT [facility] Platelets 230 130 - 400 K/mcL LAB HEMETOLOGY METHOD 04/27/2025 9:53 AM EDT [facility] MPV 13.9(H) 7.0 - 11.0 FL LAB HEMETOLOGY METHOD 04/27/2025 9:53 AM EDT [facility] NRBC 0.0 <1.0 % LAB HEMETOLOGY METHOD 04/27/2025 9:53 AM EDT [facility] NRBC Absolute 0.00 <0.10 K/mcL LAB HEMETOLOGY METHOD 04/27/2025 9:53 AM EDT [facility] Blood Venous blood specimen / Unknown Venipuncture / Unknown 04/27/2025 6:36 AM EDT 04/27/2025 9:12 AM EDT us Preeti Lujan MD LAB BLOOD ORDERABLES Fin al Result [facility] [address] [place] [address], * (ABNORMAL) Basic metabolic panel (04/27/2025 6:36 AM EDT) Only the most recent of3 resultswithin the time period is included. [facility] Sodium 139 133 - 145 mmol/L LAB CHEMISTRY METHOD 04/27/2025 10:49 AM [facility] Potassium 4.8 3.5 - 5.5 mmol/L LAB CHEMISTRY METHOD 04/27/2025 10:49 AM [facility] Chloride 109 96 - 110 mmol/L LAB CHEMISTRY METHOD 04/27/2025 10:49 AM [facility] CO2 26 21 - 32 mmol/L LAB CHEMISTRY METHOD 04/27/2025 10:49 AM [facility] Anion Gap 4 3 - 11 LAB CHEMISTRY METHOD 04/27/2025 10:49 AM [facility] Glucose 196(H) 70 - 100 mg/dL LAB CHEMISTRY METHOD 04/27/2025 10:49 AM [facility] BUN 26(H) 5 - 25 mg/dL LAB CHEMISTRY METHOD 04/27/2025 10:49 AM [facility] Creatinine 1.03 0.70 - 1.30 mg/dL LAB CHEMISTRY METHOD 04/27/2025 10:49 AM [facility] eGFR 79 >=60 mL/min/1. 73m2 LAB CHEMISTRY METHOD 04/27/2025 10:49 AM [facility] Comment:Calculation based on the Chronic Kidney Disease Epidemiology Collaboration (CKD-EPI) equation refit without adjustment for race. BUN/Creatinine Ratio 25.2 LAB CHEMISTRY METHOD 04/27/2025 10:49 AM [facility] Calcium 9.2 8.5 - 10.5 mg/dL LAB CHEMISTRY METHOD 04/27/2025 10:49 AM [facility] Blood Venous blood specimen / Unknown Venipuncture / Unknown 04/27/2025 6:36 AM EDT 04/27/2025 9:12 AM EDT us Preeti Lujan MD LAB BLOOD ORDERABLES Fin al Result Performing Organization Address City/[facility]/ZIP Co de Phone Number [facility] [address] [place] [address], [place] [phone] * Hemoglobin A1c (10/22/2024 6:43 AM EDT) [facility] Hemoglobin A1C 5.5 <6.5 % LAB CHEMISTRY METHOD 10/22/2024 2:03 PM EDT [facility] Mean Bld Glu Estim. 111 mg/dL LAB CHEMISTRY METHOD 10/22/2024 2:03 PM EDT [facility] Blood Venous blood specimen / Unknown Venipuncture / Unknown 10/22/2024 6:43 AM EDT 10/22/2024 9:05 AM EDT Preeti Lujan MD LAB BLOOD ORDERABLES Fin al Result Performing Organization Address [facility]/ZIP Co de Phone Number [facility] [address] [place] [address], [place] [phone] * (ABNORMAL) Lipid panel with reflex to direct LDL (08/27/2024 6:34 AM EST) [facility] Cholesterol 96 0 - 200 mg/dL LAB CHEMISTRY METHOD 08/27/2024 9:27 AM [facility] Triglycerides 249(H) 0 - 150 mg/dL LAB CHEMISTRY METHOD 08/27/2024 9:27 AM [facility] HDL 30(L) >=40 mg/dL LAB CHEMISTRY METHOD 08/27/2024 9:27 AM [facility] LDL Calculated 16 0 - 100 mg/dL LAB CHEMISTRY METHOD 08/27/2024 9:27 AM [facility] VLDL Cholesterol Maikel 49.8 mg/dL LAB CHEMISTRY METHOD 08/27/2024 9:27 AM [facility] Non HDL Chol. (LDL+VLDL) 66 <145 mg/dL LAB CHEMISTRY METHOD 08/27/2024 9:27 AM EST [facility] Chol/HDL Ratio 3.2 0.0 - 4.4 LAB CHEMISTRY METHOD 08/27/2024 9:27 AM EST [facility] Blood Venous blood specimen / Unknown Venipuncture / Unknown 08/27/2024 6:34 AM EST 08/27/2024 8:52 AM EST us Prince Le MD LAB BLOOD ORDERABLES Final Resul t [facility] ([facility]) [facility] [address] [place] [address], from Last 3 Months or Most Recently Relevant to Health Maintenance Insurance [facility] MEDICARE Member Subscriber Plan / Payer (Ef fective 2023-Present) Name:EDER GARCIA Relation to Subscriber:Self Name:Eder Garcia Payer ID:[id number] Group ID:[id number] Type:Not on file Address: [place] [address] [address] [id number] Care Teams Perioperative Tech Relationship Specialty Start Date End Date Tram Álvarez MD 2 [facility] , [address] [facility] Physician Associ D/B/A: [facility] [place] PCP - General Internal Medicine 03/30/18
--- OUTSIDE RECORDS SUMMARY | 2025-05-10 17:00 | XMS_ITS | Encounter Summary ---
Author Organization [facility] Address [address] [place] [address] Care Team Providers Care Medical Insurance Claims Specialist Name Role Phone Tram Álvarez MD Primary Care Provider [phone] Encounter Details Date Type Department Care Team (Late st Contact Info) Description 10/22/2024 Lab Requisition [facility] - Main Lab [address] [place] [address] Preeti Lujan MD [address] [phone] Type 2 diabetes mellitus without complications (CMS/HCC [...] LAB CHEMISTRY METHOD 10/22/2024 2:03 PM EDT [facility] Mean Bld Glu Estim. 111 mg/dL LAB CHEMISTRY METHOD 10/22/2024 2:03 PM T [facility] Blood Venous blood specimen / Unknown Venipuncture / Unknown 10/22/2024 6:43 AM EDT 10/22/2024 9:05 AM EDT us Preeti Lujan MD LAB BLOOD ORDERABLES Fin al Result [facility] ([facility] [address] [place] [address], documented in this encounter Visit Diagnoses Diagnosis Type 2 diabetes mellitus without complications (CMS/HCC V24, CMS/HCC V28) documented in this encounter Care Teams Medical Insurance Claims Specialist Relationship Specialty Start Date End Date Tram Álvarez MD 2 [facility] , [address] Physician Associ D/B/A: [facility] JAS Duque PCP - General Internal Medicine 03/30/18 documented as of this encounter
--- OUTSIDE RECORDS SUMMARY | 2025-05-10 17:00 | XMS_ITS | Encounter Summary ---
Author Organization [facility] Address [address] [place] [address] Care Team Providers Care Silo Tender Name Role Phone Tram Álvarez MD Primary Care Provider [phone] Encounter Details Date Type Department Care Team (Late st Contact Info) Description 09/02/2024 Lab Requisition [facility] - Main Lab [address] [facility] [place] [address] Prince Le MD 38 [facility] [address] [place], [address] Type 2 diabetes mellitus without complications [...] mg/dL LAB CHEMISTRY METHOD 09/03/2024 10:05 AM [facility] Blood Venous blood specimen / Unknown Venipuncture / Unknown 09/03/2024 6:35 AM EST 09/03/2024 7:52 AM EST us Prince Le MD LAB BLOOD ORDERABLES Final Resul t [facility] [address] [place] [address], [place] [phone] * (ABNORMAL) Comprehensive metabolic panel (09/03/2024 6:35 AM EST) Sodium 138 133 - 145 mmol/L LAB CHEMISTRY METHOD 09/03/2024 9:59 AM [facility] Potassium 4.2 3.5 - 5.5 mmol/L LAB CHEMISTRY METHOD 09/03/2024 9:59 AM [facility] Chloride 105 96 - 110 mmol/L LAB CHEMISTRY METHOD 09/03/2024 9:59 AM [facility] CO2 28 21 - 32 mmol/L LAB CHEMISTRY METHOD 09/03/2024 9:59 AM [facility] Anion Gap 5 3 - 11 LAB CHEMISTRY METHOD 09/03/2024 9:59 AM [facility] Glucose 120(H) 70 - 100 mg/dL LAB CHEMISTRY METHOD 09/03/2024 9:59 AM [facility] BUN 23 5 - 25 mg/dL LAB CHEMISTRY METHOD 09/03/2024 9:59 AM [facility] Creatinine 0.88 0.70 - 1.30 mg/dL LAB CHEMISTRY METHOD 09/03/2024 9:59 AM [facility] eGFR 94 >=60 mL/min/1. 73m2 LAB CHEMISTRY METHOD 09/03/2024 9:59 AM [facility] Comment:Calculation based on the Chronic Kidney Disease Epidemiology Collaboration (CKD-EPI) equation refit without adjustment for race. BUN/Creatinine Ratio 26.1 LAB CHEMISTRY METHOD 09/03/2024 9:59 AM [facility] Calcium 9.1 8.5 - 10.5 mg/dL LAB CHEMISTRY METHOD 09/03/2024 9:59 AM [facility] AST (SGOT) 23 10 - 42 unit/L LAB CHEMISTRY METHOD 09/03/2024 9:59 AM [facility] ALT (SGPT) 29 10 - 60 unit/L LAB CHEMISTRY METHOD 09/03/2024 9:59 AM [facility] Alkaline Phosphatase 59 42 - 121 unit/L LAB CHEMISTRY METHOD 09/03/2024 9:59 AM [facility] Total Protein 5.9(L) 6.0 - 8.0 g/dL LAB CHEMISTRY METHOD 09/03/2024 9:59 AM [facility] Albumin 3.1(L) 3.2 - 5.0 g/dL LAB CHEMISTRY METHOD 09/03/2024 9:59 AM [facility] Total Bilirubin 0.4 0.0 - 1.4 mg/dL LAB CHEMISTRY METHOD 09/03/2024 9:59 AM [facility] Blood Venous blood specimen / Unknown Venipuncture / Unknown 09/03/2024 6:35 AM EST 09/03/2024 7:52 AM EST us Prince Le MD LAB BLOOD ORDERABLES Final Resul t [facility] [address] [place] [address], * (ABNORMAL) Complete blood count (09/03/2024 6:35 AM EST) WBC 9.2 4.8 - 10.8 K/mcL LAB HEMETOLOGY METHOD 09/03/2024 8:43 AM [facility] RBC 3.70(L) 4.50 - 5.50 M/mcL LAB HEMETOLOGY METHOD 09/03/2024 8:43 AM [facility] Hemoglobin 10.8(L) 13.5 - 17.5 g/dL LAB HEMETOLOGY METHOD 09/03/2024 8:43 AM [facility] Hematocrit 34.4(L) 42.0 - 54.0 % LAB HEMETOLOGY METHOD 09/03/2024 8:43 AM [facility] MCV 93.5 79.0 - 98.0 FL LAB HEMETOLOGY METHOD 09/03/2024 8:43 AM [facility] MCH 29.3 27.0 - 32.0 pcg LAB HEMETOLOGY METHOD 09/03/2024 8:43 AM [facility] MCHC 31.4(L) 32.0 - 37.0 g/dL LAB HEMETOLOGY METHOD 09/03/2024 8:43 AM [facility] RDW 20.0(H) 11.0 - 15.0 % LAB HEMETOLOGY METHOD 09/03/2024 8:43 AM [facility] Platelets 333 130 - 400 K/mcL LAB HEMETOLOGY METHOD 09/03/2024 8:43 AM [facility] MPV 12.3(H) 7.0 - 11.0 FL LAB HEMETOLOGY METHOD 09/03/2024 8:43 AM [facility] NRBC 0.0 <1.0 % LAB HEMETOLOGY METHOD 09/03/2024 8:43 AM [facility] NRBC Absolute 0.00 <0.10 K/mcL LAB HEMETOLOGY METHOD 09/03/2024 8:43 AM [facility] Blood Venous blood specimen / Unknown Venipuncture / Unknown 09/03/2024 6:35 AM EST 09/03/2024 7:52 AM EST us Prince Le MD LAB BLOOD ORDERABLES Final Resul t [facility]) [facility] [address] [place] [address], [place] [phone] documented in this encounter Visit Diagnoses Diagnosis Type 2 diabetes mellitus without complications (CMS/HCC V24, CMS/HCC V28) documented in this encounter Care Teams Silo Tender Relationship Specialty Start Date End Date Tram Álvarez MD 2 [facility] , [address] [facility] Physician Associ D/B/A: [facility] JAS Duque PCP - General Internal Medicine 03/30/18 documented as of this encounter
--- OUTSIDE RECORDS SUMMARY | 2025-05-10 17:00 | XMS_ITS | Encounter Summary ---
Author Organization [facility] Address [address] [place] [address] Care Team Providers Care Maintenance Department Technician Name Role Phone Tram Álvarez MD Primary Care Provider [phone] Encounter Details Date Type Department Care Team (Late st Contact Info) Description 05/28/2024 Lab Requisition [facility] - Main Lab [address] [place] [address] Prince Le MD 38 [facility] [address] [place], [address] Essential (primary) hypertension Social History Tobacco [...] LAB CHEMISTRY METHOD 05/31/2024 11:37 AM EST [facility] Potassium 4.5 3.5 - 5.5 mmol/L LAB CHEMISTRY METHOD 05/31/2024 11:37 AM EST [facility] Chloride 108 96 - 110 mmol/L LAB CHEMISTRY METHOD 05/31/2024 11:37 AM [facility] CO2 28 21 - 32 mmol/L LAB CHEMISTRY METHOD 05/31/2024 11:37 AM [facility] Anion Gap 6 3 - 11 LAB CHEMISTRY METHOD 05/31/2024 11:37 AM [facility] Glucose 104(H) 70 - 100 mg/dL LAB CHEMISTRY METHOD 05/31/2024 11:37 AM [facility] BUN 25 5 - 25 mg/dL LAB CHEMISTRY METHOD 05/31/2024 11:37 AM [facility] Creatinine 1.15 0.70 - 1.30 mg/dL LAB CHEMISTRY METHOD 05/31/2024 11:37 AM [facility] eGFR 69 >=60 mL/min/1. 73m2 LAB CHEMISTRY METHOD 05/31/2024 11:37 AM [facility] Comment:Calculation based on the Chronic Kidney Disease Epidemiology Collaboration (CKD-EPI) equation refit without adjustment for race. BUN/Creatinine Ratio 21.7 LAB CHEMISTRY METHOD 05/31/2024 11:37 AM [facility] Calcium 9.2 8.5 - 10.5 mg/dL LAB CHEMISTRY METHOD 05/31/2024 11:37 AM [facility] Blood Venous blood specimen / Unknown Venipuncture / Unknown 05/31/2024 7:20 AM EST 05/31/2024 10:13 AM EST us Prince Le MD LAB BLOOD ORDERABLES Final Resul t [facility] [address] [place] [address], * (ABNORMAL) Complete blood count (05/31/2024 7:20 AM EST) WBC 8.8 4.8 - 10.8 K/mcL LAB HEMETOLOGY METHOD 05/31/2024 10:39 AM [facility] RBC 5.10 4.50 - 5.50 M/mcL LAB HEMETOLOGY METHOD 05/31/2024 10:39 AM [facility] Hemoglobin 14.2 13.5 - 17.5 g/dL LAB HEMETOLOGY METHOD 05/31/2024 10:39 AM [facility] Hematocrit 44.7 42.0 - 54.0 % LAB HEMETOLOGY METHOD 05/31/2024 10:39 AM [facility] MCV 87.0 79.0 - 98.0 FL LAB HEMETOLOGY METHOD 05/31/2024 10:39 AM [facility] MCH 27.6 27.0 - 32.0 pcg LAB HEMETOLOGY METHOD 05/31/2024 10:39 AM [facility] MCHC 31.8(L) 32.0 - 37.0 g/dL LAB HEMETOLOGY METHOD 05/31/2024 10:39 AM [facility] RDW 16.5(H) 11.0 - 15.0 % LAB HEMETOLOGY METHOD 05/31/2024 10:39 AM [facility] Platelets 242 130 - 400 K/mcL LAB HEMETOLOGY METHOD 05/31/2024 10:39 AM [facility] MPV 12.5(H) 7.0 - 11.0 FL LAB HEMETOLOGY METHOD 05/31/2024 10:39 AM [facility] NRBC 0.0 <1.0 % LAB HEMETOLOGY METHOD 05/31/2024 10:39 AM [facility] NRBC Absolute 0.00 <0.10 K/mcL LAB HEMETOLOGY METHOD 05/31/2024 10:39 AM [facility] Blood Venous blood specimen / Unknown Venipuncture / Unknown 05/31/2024 7:20 AM EST 05/31/2024 10:16 AM EST us Prince Le MD LAB BLOOD ORDERABLES Final [facility]ul t [facility] [address] [place] [address], [place] [phone] documented in this encounter Visit Diagnoses Diagnosis Essential (primary) hypertension Unspecified essential hypertension documented in this encounter Care Teams Maintenance Department Technician Relationship Specialty Start Date End Date Tram Álvarez MD 2 [facility] , [address] [facility] Physician Associ D/B/A: [facility] JAS Duque PCP - General Internal Medicine 03/30/18 documented as of this encounter
--- OUTSIDE RECORDS SUMMARY | 2025-05-10 17:00 | XMS_ITS | Encounter Summary ---
Author Organization [facility] Address [address] [place] [address] Care Team Providers Care Director Geophysical Laboratory Name Role Phone Tram Álvarez MD Primary Care Provider Encounter Details Date Type Department Care Team (Late st Contact Info) Description 09/30/2024 Lab Requisition [facility] - Main Lab 299 [facility] [place] [address] Prince Le MD 38 [facility] [address] [place], [address] Type 2 diabetes mellitus without complications [...] mg/dL LAB CHEMISTRY METHOD 10/01/2024 11:57 AM [facility] Blood Venous blood specimen / Unknown Venipuncture / Unknown 10/01/2024 8:01 AM EDT 10/01/2024 10:24 AM EDT us Prince Le MD LAB BLOOD ORDERABLES Final Resul t [facility] [address] [place] [address], [place] [phone] * (ABNORMAL) Comprehensive metabolic panel (10/01/2024 8:01 AM EDT) Sodium 134 133 - 145 mmol/L LAB CHEMISTRY METHOD 10/01/2024 12:02 PM [facility] Potassium 4.7 3.5 - 5.5 mmol/L LAB CHEMISTRY METHOD 10/01/2024 12:02 PM [facility] Chloride 101 96 - 110 mmol/L LAB CHEMISTRY METHOD 10/01/2024 12:02 PM [facility] CO2 27 21 - 32 mmol/L LAB CHEMISTRY METHOD 10/01/2024 12:02 PM [facility] Anion Gap 6 3 - 11 LAB CHEMISTRY METHOD 10/01/2024 12:02 PM [facility] Glucose 79 70 - 100 mg/dL LAB CHEMISTRY METHOD 10/01/2024 12:02 PM [facility] BUN 40(H) 5 - 25 mg/dL LAB CHEMISTRY METHOD 10/01/2024 12:02 PM [facility] Creatinine 1.55(H) 0.70 - 1.30 mg/dL LAB CHEMISTRY METHOD 10/01/2024 12:02 PM [facility] eGFR 48(L) >=60 mL/min/1. 73m2 LAB CHEMISTRY METHOD 10/01/2024 12:02 PM [facility] Comment:Calculation based on the Chronic Kidney Disease Epidemiology Collaboration (CKD-EPI) equation refit without adjustment for race. BUN/Creatinine Ratio 25.8 LAB CHEMISTRY METHOD 10/01/2024 12:02 PM [facility] Calcium 8.8 8.5 - 10.5 mg/dL LAB CHEMISTRY METHOD 10/01/2024 12:02 PM [facility] AST (SGOT) 63(H) 10 - 42 unit/L LAB CHEMISTRY METHOD 10/01/2024 12:02 PM [facility] ALT (SGPT) 30 10 - 60 unit/L LAB CHEMISTRY METHOD 10/01/2024 12:02 PM [facility] Alkaline Phosphatase 40(L) 42 - 121 unit/L LAB CHEMISTRY METHOD 10/01/2024 12:02 PM [facility] Total Protein 6.0 6.0 - 8.0 g/dL LAB CHEMISTRY METHOD 10/01/2024 12:02 PM [facility] Albumin 2.9(L) 3.2 - 5.0 g/dL LAB CHEMISTRY METHOD 10/01/2024 12:02 PM [facility] Total Bilirubin 0.4 0.0 - 1.4 mg/dL LAB CHEMISTRY METHOD 10/01/2024 12:02 PM [facility] Blood Venous blood specimen / Unknown Venipuncture / Unknown 10/01/2024 8:01 AM EDT 10/01/2024 10:24 AM EDT us Prince Le MD LAB BLOOD ORDERABLES Final Resul t [facility] [address] [place] [address], * (ABNORMAL) Complete blood count (10/01/2024 8:01 AM EDT) WBC 7.3 4.8 - 10.8 K/mcL LAB HEMETOLOGY METHOD 10/01/2024 11:11 AM [facility] RBC 4.00(L) 4.50 - 5.50 M/mcL LAB HEMETOLOGY METHOD 10/01/2024 11:11 AM [facility] Hemoglobin 11.8(L) 13.5 - 17.5 g/dL LAB HEMETOLOGY METHOD 10/01/2024 11:11 AM [facility] Hematocrit 37.0(L) 42.0 - 54.0 % LAB HEMETOLOGY METHOD 10/01/2024 11:11 AM [facility] MCV 93.7 79.0 - 98.0 FL LAB HEMETOLOGY METHOD 10/01/2024 11:11 AM [facility] MCH 29.9 27.0 - 32.0 pcg LAB HEMETOLOGY METHOD 10/01/2024 11:11 AM [facility] MCHC 31.9(L) 32.0 - 37.0 g/dL LAB HEMETOLOGY METHOD 10/01/2024 11:11 AM [facility] RDW 16.4(H) 11.0 - 15.0 % LAB HEMETOLOGY METHOD 10/01/2024 11:11 AM [facility] Platelets 416(H) 130 - 400 K/mcL LAB HEMETOLOGY METHOD 10/01/2024 11:11 AM [facility] MPV 11.3(H) 7.0 - 11.0 FL LAB HEMETOLOGY METHOD 10/01/2024 11:11 AM [facility] NRBC 0.0 <1.0 % LAB HEMETOLOGY METHOD 10/01/2024 11:11 AM [facility] NRBC Absolute 0.00 <0.10 K/mcL LAB HEMETOLOGY METHOD 10/01/2024 11:11 AM [facility] Blood Venous blood specimen / Unknown Venipuncture / Unknown 10/01/2024 8:01 AM EDT 10/01/2024 10:24 AM EDT us Prince Le MD LAB BLOOD ORDERABLES Final Resul t [facility] [address] [place] [address], documented in this encounter Visit Diagnoses Diagnosis Type 2 diabetes mellitus without complications (CMS/HCC V24, CMS/HCC V28) documented in this encounter Care Teams Director Geophysical Laboratory Relationship Specialty Start Date End Date Tram Álvarez MD 2 [facility] , [address] Physician Associ D/B/A: [facility] [place] PCP - General Internal Medicine 03/30/18 documented as of this encounter
--- OUTSIDE RECORDS SUMMARY | 2025-05-10 17:00 | XMS_ITS | Encounter Summary ---
Author Organization [facility] Address [address] [place] [address] Care Team Providers Care Target Protection Specialist Name Role Phone Tram Álvarez MD Primary Care Provider [phone] Encounter Details Date Type Department Care Team (Late st Contact Info) Description 11/09/2024 Lab Requisition [facility] - Main Lab 299 [facility] [place] [address] Prince Le MD 38 [facility] [address] [place], [address] Hyperlipidemia, unspecified Social History Tobacco Use [...] unspecified documented in this encounter Care Teams Target Protection Specialist Relationship Specialty Start Date End Date Tram Álvarez MD [address] [place] [address] , [address] [facility] Physician Associ D/B/A: [facility] [place], [place] PCP - General Internal Medicine 03/30/18 documented as of this encounter
--- OUTSIDE RECORDS SUMMARY | 2025-05-10 17:00 | XMS_ITS | Encounter Summary ---
Author Organization [facility] Address [address] [place] [address] Care Team Providers Care Supervisor Capacitor Processing Name Role Phone Tram Álvarez MD Primary Care Provider [phone] Encounter Details Date Type Department Care Team (Late st Contact Info) Description 07/29/[address] [facility] - Main Lab [address] [facility] [place] [address] Prince Le MD 38 [facility] 204 [place], [address] Type 2 [...] Final Resul t [facility] [address] [place] [address], [place] [phone] * (ABNORMAL) Comprehensive metabolic panel (07/30/2024 7:30 [...] Final Resul t [facility] [address] [place] [address], * (ABNORMAL) Complete blood count (07/30/2024 7:30 AM EST) WBC 8.9 4.8 - 10.8 K/mcL LAB HEMETOLOGY METHOD 07/30/2024 9:55 AM EST [facility] RBC 4.30(L) 4.50 - 5.50 [...] Final Resul t [facility] ([facility]) [facility] [address] [place] [address], documented in this encounter Visit Diagnoses Diagnosis Type 2 diabetes mellitus without complications (CMS/HCC V24, CMS/HCC V28) documented in this encounter Care Teams Supervisor Capacitor Processing Relationship Specialty Start Date End Date Tram Álvarez MD 2 [facility] , [address] [facility] Physician Associ D/B/A: [facility] JAS Duque PCP - General Internal Medicine 03/30/18 documented as of this encounter
--- OUTSIDE RECORDS SUMMARY | 2025-05-10 17:00 | XMS_ITS | Encounter Summary ---
Author Organization [facility] Address [address] [place] [address] Care Team Providers Care Vacuum Tester Cans Name Role Phone Tram Álvarez MD Primary Care Provider [phone] Encounter Details Date Type Department Care Team (Late st Contact Info) Description 07/16/2024 Lab Requisition [facility] - Main Lab 299 [facility] [place] [address] Prince Le MD 38 [facility] [address] [place], [address] Type 2 diabetes mellitus without complications [...] Resul t [facility] [address] [place] [address], [place] [phone] * (ABNORMAL) Comprehensive metabolic panel (07/16/2024 8:00 [...] Resul t [facility] [address] [place] [address], * (ABNORMAL) Complete blood count (07/16/2024 8:00 AM EST) WBC 10.9(H) 4.8 - 10.8 K/mcL LAB HEMETOLOGY METHOD 07/16/2024 11:53 AM EST [facility] RBC [...] MD LAB BLOOD ORDERABLES Final Resul t [facility] ([facility]) [facility] [address] [place] [address], documented in this encounter Visit Diagnoses Diagnosis Type 2 diabetes mellitus without complications (CMS/HCC V24, CMS/HCC V28) documented in this encounter Care Teams Vacuum Tester Cans Relationship Specialty Start Date End Date Tram Álvarez MD 2 [facility] , [address] [facility] Physician Associ D/B/A: [facility] JAS Duque PCP - General Internal Medicine 03/30/18 documented as of this encounter
--- OUTSIDE RECORDS SUMMARY | 2025-05-10 17:00 | XMS_ITS | Encounter Summary ---
Author Organization [facility] Address [address] [place] [address] Care Team Providers Care Supervisor Multifocal Lens Name Role Phone Tram Álvarez MD Primary Care Provider [phone] Encounter Details Date Type Department Care Team (Late st Contact Info) Description 10/21/2024 Lab Requisition [facility] - Main Lab 299 [facility] [place] [address] Prince Le MD 38 [facility] [address] [place], [address] Type 2 diabetes mellitus without complications [...] documented in this encounter Care Teams Supervisor Multifocal Lens Relationship Specialty Start Date End Date Tram Álvarez MD [address] [place] [address] , [address] [facility] Physician Associ D/B/A: [facility] [place], [place] PCP - General Internal Medicine 03/30/18 documented as of this encounter
--- OUTSIDE RECORDS SUMMARY | 2025-05-10 17:00 | XMS_ITS | Encounter Summary ---
Author Organization [facility] Address [address] [place] [address] Care Team Providers Care Torch Cutter Name Role Phone Tram Álvarez MD Primary Care Provider Encounter Details Date Type Department Care Team (Late st Contact Info) Description 06/18/2024 Lab Requisition [facility] - Main Lab [address] [place] [address] Prince Le MD 38 [facility] 204 [place], [address] Nausea with vomiting, unspecified; Chronic kidney [...] LAB CHEMISTRY METHOD 06/18/2024 11:17 AM EST [facility] Potassium 4.6 3.5 - [...] Final Resul t [facility] [address] [place] [address], * (ABNORMAL) Complete blood count (06/18/2024 6:44 AM EST) WBC 8.4 4.8 - 10.8 K/[facility] LAB HEMETOLOGY METHOD 06/18/2024 10:46 AM [facility] LAB RBC 5.10 4.50 - 5.50 M/[facility] LAB HEMETOLOGY METHOD 06/18/2024 10:46 AM [...] HOSPITAL LAB Platelets 248 130 - 400 K/[facility] LAB HEMETOLOGY METHOD 06/18/2024 10:46 AM [facility] LAB MPV 12.7(H) 7.0 - 11.0 FL LAB HEMETOLOGY METHOD 06/18/2024 10:46 AM [facility] LAB NRBC 0.0 <1.0 % LAB HEMETOLOGY METHOD 06/18/2024 10:46 AM [facility] LAB NRBC Absolute 0.00 <0.10 K/[facility] LAB HEMETOLOGY METHOD 06/18/2024 10:46 AM [facility] LAB Blood Venous blood specimen / Unknown Venipuncture / Unknown 06/18/2024 6:44 AM EST 06/18/2024 9:17 AM EST us Prince Le MD LAB BLOOD ORDERABLES Final Resul t [facility] [address] [place] [address], documented in this encounter Visit Diagnoses Diagnosis Nausea with vomiting, unspecified Chronic kidney disease, unspecified documented in this encounter Care Teams Torch Cutter Relationship Specialty Start Date End Date Tram Álvarez MD 2 [facility] , [address] [place] [address] Physician Associ D/B/A: [facility] JAS Duque PCP - General Internal Medicine 03/30/18 documented as of this encounter
--- OUTSIDE RECORDS SUMMARY | 2025-05-10 17:00 | XMS_ITS | Encounter Summary ---
Author Organization [facility] Address [address] [place] [address] Care Team Providers Care Recreation Coordinator Name Role Phone Tram Álvarez MD Primary Care Provider [phone] Encounter Details Date Type Department Care Team (Late st Contact Info) Description 08/12/2024 Lab Requisition [facility] - Main Lab 299 [facility] [place] [address] Prince Le MD 38 [facility] [address] [place], [address] Type 2 diabetes mellitus without complications [...] t [facility] [address] [place] [address], [place] [phone] * (ABNORMAL) Comprehensive metabolic panel (08/13/2024 7:38 [...] t [facility] [address] [place] [address], * (ABNORMAL) Complete blood count (08/13/2024 7:30 [...] LAB BLOOD ORDERABLES Final Resul t [facility] [address] [place] [address], [place] [phone] documented in this encounter Visit Diagnoses Diagnosis Type 2 diabetes mellitus without complications (CMS/HCC V24, CMS/HCC V28) documented in this encounter Care Teams Recreation Coordinator Relationship Specialty Start Date End Date Tram Álvarez MD 2 [facility] , [address] [facility] Physician Associ D/B/A: [facility] JAS Duque PCP - General Internal Medicine 03/30/18 documented as of this encounter
--- OUTSIDE RECORDS SUMMARY | 2025-05-10 17:00 | XMS_ITS | Encounter Summary ---
Author Organization [facility] Address [address] [place] [address] Care Team Providers Care Airport Ramp Supervisor Name Role Phone Tram Álvarez MD Primary Care Provider [phone] Encounter Details Date Type Department Care Team (Late st Contact Info) Description 07/22/2024 Lab Requisition [facility] - Main Lab 299 [facility] [place] [address] Prince Le MD 38 [facility] [address] [place], [address] Type 2 diabetes mellitus without complications [...] Final Resul t [facility] [address] [place] [address], [place] [phone] * (ABNORMAL) Comprehensive metabolic panel (07/23/2024 6:52 [...] Final Resul t [facility] [address] [place] [address], * (ABNORMAL) Complete blood count (07/23/2024 6:52 AM EST) WBC 9.2 4.8 - 10.8 K/mcL LAB HEMETOLOGY METHOD 07/23/2024 10:13 AM [facility] RBC 4.90 4.50 [...] LAB BLOOD ORDERABLES Final Resul t [facility] [address] [place] [address], documented in this encounter Visit Diagnoses Diagnosis Type 2 diabetes mellitus without complications (CMS/HCC V24, CMS/HCC V28) documented in this encounter Care Teams Airport Ramp Supervisor Relationship Specialty Start Date End Date Tram Álvarez MD 2 [facility] , [address] [facility] Physician Associ D/B/A: [facility] JAS Duque PCP - General Internal Medicine 03/30/18 documented as of this encounter
--- OUTSIDE RECORDS SUMMARY | 2025-05-10 17:00 | XMS_ITS | Encounter Summary ---
Author Organization [facility] Address [address] [place] [address] Care Team Providers Care Industrial Illuminating Engineer Name Role Phone Tram Álvarez MD Primary Care Provider [phone] Encounter Details Date Type Department Care Team (Late st Contact Info) Description 08/26/[address] [facility] - Main Lab 299 [facility] [place] [address] Prince Le MD 38 [facility] 204 [place], [address] Type 2 diabetes mellitus without complications [...] LAB CHEMISTRY METHOD 08/27/2024 9:27 AM EST [facility] Triglycerides 249(H) 0 - 150 mg/dL LAB CHEMISTRY METHOD 08/27/2024 9:27 AM [facility] HDL 30(L) >=40 mg/dL LAB CHEMISTRY METHOD 08/27/2024 9:27 AM EST [facility] LDL Calculated 16 0 - 100 mg/dL LAB CHEMISTRY METHOD 08/27/2024 9:27 AM [facility] VLDL Cholesterol Maikel 49.8 mg/dL LAB CHEMISTRY METHOD 08/27/2024 9:27 AM [facility] Non HDL Chol. (LDL+VLDL) 66 <145 mg/dL LAB CHEMISTRY METHOD 08/27/2024 9:27 AM [facility] Chol/HDL Ratio 3.2 0.0 - 4.4 LAB CHEMISTRY METHOD 08/27/2024 9:27 AM [facility] Blood Venous blood specimen / Unknown Venipuncture / Unknown 08/27/2024 6:34 AM EST 08/27/2024 8:52 AM EST us Prince Le MD LAB BLOOD ORDERABLES Final Resul t [facility] [address] [place] [address], * (ABNORMAL) C-reactive protein (08/27/2024 6:34 AM EST) C-Reactive Protein 1.47(H) <=0.50 mg/dL LAB CHEMISTRY METHOD 08/27/2024 9:27 AM [facility] Blood Venous blood specimen / Unknown Venipuncture / Unknown 08/27/2024 6:34 AM EST 08/27/2024 8:52 AM EST us Prince Le MD LAB BLOOD ORDERABLES Final Resul t [facility] [address] [place] [address], [place] [phone] * (ABNORMAL) Comprehensive metabolic panel (08/27/2024 6:34 AM EST) Sodium 139 133 - 145 mmol/L LAB CHEMISTRY METHOD 08/27/2024 9:27 AM [facility] Potassium 4.6 3.5 - 5.5 mmol/L LAB CHEMISTRY METHOD 08/27/2024 9:27 AM [facility] Chloride 105 96 - 110 mmol/L LAB CHEMISTRY METHOD 08/27/2024 9:27 AM [facility] CO2 31 21 - 32 mmol/L LAB CHEMISTRY METHOD 08/27/2024 9:27 AM [facility] Anion Gap 3 3 - 11 LAB CHEMISTRY METHOD 08/27/2024 9:27 AM [facility] Glucose 112(H) 70 - 100 mg/dL LAB CHEMISTRY METHOD 08/27/2024 9:27 AM [facility] BUN 19 5 - 25 mg/dL LAB CHEMISTRY METHOD 08/27/2024 9:27 AM [facility] Creatinine 0.71 0.70 - 1.30 mg/dL LAB CHEMISTRY METHOD 08/27/2024 9:27 AM [facility] eGFR 100 >=60 mL/min/1. 73m2 LAB CHEMISTRY METHOD 08/27/2024 9:27 AM [facility] Comment:Calculation based on the Chronic Kidney Disease Epidemiology Collaboration (CKD-EPI) equation refit without adjustment for race. BUN/Creatinine Ratio 26.8 LAB CHEMISTRY METHOD 08/27/2024 9:27 AM [facility] Calcium 9.5 8.5 - 10.5 mg/dL LAB CHEMISTRY METHOD 08/27/2024 9:27 AM [facility] AST (SGOT) 19 10 - 42 unit/L LAB CHEMISTRY METHOD 08/27/2024 9:27 AM [facility] ALT (SGPT) 29 10 - 60 unit/L LAB CHEMISTRY METHOD 08/27/2024 9:27 AM [facility] Alkaline Phosphatase 53 42 - 121 unit/L LAB CHEMISTRY METHOD 08/27/2024 9:27 AM [facility] Total Protein 6.5 6.0 - 8.0 g/dL LAB CHEMISTRY METHOD 08/27/2024 9:27 AM [facility] Albumin 3.2 3.2 - 5.0 g/dL LAB CHEMISTRY METHOD 08/27/2024 9:27 AM [facility] Total Bilirubin 0.6 0.0 - 1.4 mg/dL LAB CHEMISTRY METHOD 08/27/2024 9:27 AM [facility] Blood Venous blood specimen / Unknown Venipuncture / Unknown 08/27/2024 6:34 AM EST 08/27/2024 8:52 AM EST us Prince Le MD LAB BLOOD ORDERABLES Final Resul t [facility] [address] [place] [address], * (ABNORMAL) Complete blood count (08/27/2024 6:34 AM EST) WBC 12.7(H) 4.8 - 10.8 K/mcL LAB HEMETOLOGY METHOD 08/27/2024 9:04 AM [facility] RBC 3.80(L) 4.50 - 5.50 M/mcL LAB HEMETOLOGY METHOD 08/27/2024 9:04 AM [facility] Hemoglobin 10.9(L) 13.5 - 17.5 g/dL LAB HEMETOLOGY METHOD 08/27/2024 9:04 AM [facility] Hematocrit 34.6(L) 42.0 - 54.0 % LAB HEMETOLOGY METHOD 08/27/2024 9:04 AM [facility] MCV 91.5 79.0 - 98.0 FL LAB HEMETOLOGY METHOD 08/27/2024 9:04 AM [facility] MCH 28.8 27.0 - 32.0 pcg LAB HEMETOLOGY METHOD 08/27/2024 9:04 AM [facility] MCHC 31.5(L) 32.0 - 37.0 g/dL LAB HEMETOLOGY METHOD 08/27/2024 9:04 AM [facility] RDW 20.3(H) 11.0 - 15.0 % LAB HEMETOLOGY METHOD 08/27/2024 9:04 AM [facility] Platelets 422(H) 130 - 400 K/mcL LAB HEMETOLOGY METHOD 08/27/2024 9:04 AM [facility] MPV 12.5(H) 7.0 - 11.0 FL LAB HEMETOLOGY METHOD 08/27/2024 9:04 AM [facility] NRBC 0.0 <1.0 % LAB HEMETOLOGY METHOD 08/27/2024 9:04 AM [facility] NRBC Absolute 0.00 <0.10 K/mcL LAB HEMETOLOGY METHOD 08/27/2024 9:04 AM [facility] Blood Venous blood specimen / Unknown Venipuncture / Unknown 08/27/2024 6:34 AM EST 08/27/2024 8:52 AM EST us Prince Le MD LAB BLOOD ORDERABLES Final Resul t [facility] [address] [place] [address], documented in this encounter Visit Diagnoses Diagnosis Type 2 diabetes mellitus without complications (CMS/HCC V24, CMS/HCC V28) documented in this encounter Care Teams Industrial Illuminating Engineer Relationship Specialty Start Date End Date Tram Álvarez MD 2 [facility] , [address] [facility] Physician Associ D/B/A: [facility] [place], [place] PCP - General Internal Medicine 03/30/18 documented as of this encounter
--- OUTSIDE RECORDS SUMMARY | 2025-05-10 17:00 | XMS_ITS | Encounter Summary ---
Author Organization [facility] Address [address] [place] [address] Care Team Providers Care Cardiology Clinical Consultant Name Role Phone Tram Álvarez MD Primary Care Provider [phone] Encounter Details Date Type Department Care Team (Late st Contact Info) Description 09/16/2024 Lab Requisition [facility] - Main Lab 299 [facility] [place] [address] Prince Le MD 38 [facility] [address] [place], [address] Type 2 diabetes mellitus without complications [...] Resul t [facility] [address] [place] [address], [place] [phone] * (ABNORMAL) Comprehensive metabolic panel (09/17/2024 8:06 [...] Resul t [facility] [address] [place] [address], * (ABNORMAL) Complete blood count (09/17/2024 8:06 AM EDT) WBC 9.2 4.8 - 10.8 K/[facility] LAB HEMETOLOGY METHOD 09/17/2024 10:[address] [facility] RBC 3.80(L) 4.50 - 5.50 M/[facility] LAB HEMETOLOGY METHOD 09/17/2024 10:[address] [...] HOSPITAL LAB Platelets 352 130 - 400 K/[facility] LAB HEMETOLOGY METHOD 09/17/2024 10:[address] [facility] MPV 11.5(H) 7.0 - 11.0 FL LAB HEMETOLOGY METHOD 09/17/2024 10:[address] [facility] NRBC 0.0 <1.0 % LAB HEMETOLOGY METHOD 09/17/2024 10:[address] [facility] NRBC Absolute 0.00 <0.10 K/[facility] LAB HEMETOLOGY METHOD 09/17/2024 10:35 AM EDT [facility] Blood Venous blood specimen / Unknown Venipuncture / Unknown 09/17/2024 8:06 AM EDT 09/17/2024 10:22 AM EDT us Prince Le MD LAB BLOOD ORDERABLES Final Resul t [facility] ([facility] [address] [place] [address], documented in this encounter Visit Diagnoses Diagnosis Type 2 diabetes mellitus without complications (CMS/HCC V24, CMS/HCC V28) documented in this encounter Care Teams Cardiology Clinical Consultant Relationship Specialty Start Date End Date Tram Álvarez MD 2 [facility] , [address] Physician Associ D/B/A: [facility] [place], [place] PCP - General Internal Medicine 03/30/18 documented as of this encounter
--- OUTSIDE RECORDS SUMMARY | 2025-05-10 17:00 | XMS_ITS | Encounter Summary ---
Author Organization [facility] [address] Address [address] [place] [address] Care Team Providers Care Real Estate Broker Associate Name Role Phone Tram Álvarez MD Primary Care Provider [phone] Encounter Details Date Type Department Care Team (Late st Contact Info) Description 09/23/2024 Lab Requisition [facility] - Main Lab 299 [facility] [place] [address] Prince Le MD 38 [facility] [address] [place], [address] Type 2 diabetes mellitus without complications [...] mg/dL LAB CHEMISTRY METHOD 09/24/2024 12:40 PM [facility] Blood Venous blood specimen / Unknown Venipuncture / Unknown 09/24/2024 5:45 AM EDT 09/24/2024 9:53 AM EDT us Prince Le MD LAB BLOOD ORDERABLES Final Resul t [facility] [address] [place] [address], * (ABNORMAL) Comprehensive metabolic panel (09/24/2024 5:45 AM EDT) Sodium 140 133 - 145 mmol/L LAB CHEMISTRY METHOD 09/24/2024 12:42 PM [facility] Potassium 4.8 3.5 - 5.5 mmol/L LAB CHEMISTRY METHOD 09/24/2024 12:42 PM [facility] Chloride 107 96 - 110 mmol/L LAB CHEMISTRY METHOD 09/24/2024 12:42 PM [facility] CO2 27 21 - 32 mmol/L LAB CHEMISTRY METHOD 09/24/2024 12:42 PM [facility] Anion Gap 6 3 - 11 LAB CHEMISTRY METHOD 09/24/2024 12:42 PM [facility] Glucose 81 70 - 100 mg/dL LAB CHEMISTRY METHOD 09/24/2024 12:42 PM [facility] BUN 18 5 - 25 mg/dL LAB CHEMISTRY METHOD 09/24/2024 12:42 PM [facility] Creatinine 0.80 0.70 - 1.30 mg/dL LAB CHEMISTRY METHOD 09/24/2024 12:42 PM [facility] eGFR 96 >=60 mL/min/1. 73m2 LAB CHEMISTRY METHOD 09/24/2024 12:42 PM [facility] Comment:Calculation based on the Chronic Kidney Disease Epidemiology Collaboration (CKD-EPI) equation refit without adjustment for race. BUN/Creatinine Ratio 22.5 LAB CHEMISTRY METHOD 09/24/2024 12:[address] [facility] Calcium 8.9 8.5 - 10.5 mg/dL LAB CHEMISTRY METHOD 09/24/2024 12:42 PM [facility] AST (SGOT) 15 10 - 42 unit/L LAB CHEMISTRY METHOD 09/24/2024 12:42 PM [facility] ALT (SGPT) 16 10 - 60 unit/L LAB CHEMISTRY METHOD 09/24/2024 12:42 PM [facility] Alkaline Phosphatase 51 42 - 121 unit/L LAB CHEMISTRY METHOD 09/24/2024 12:42 PM [facility] Total Protein 6.1 6.0 - 8.0 g/dL LAB CHEMISTRY METHOD 09/24/2024 12:42 PM [facility] Albumin 2.7(L) 3.2 - 5.0 g/dL LAB CHEMISTRY METHOD 09/24/2024 12:42 PM [facility] Total Bilirubin 0.4 0.0 - 1.4 mg/dL LAB CHEMISTRY METHOD 09/24/2024 12:42 PM [facility] Blood Venous blood specimen / Unknown Venipuncture / Unknown 09/24/2024 5:45 AM EDT 09/24/2024 9:53 AM EDT us Prince Le MD LAB BLOOD ORDERABLES Final Resul t [facility] [address] [place] [address], * (ABNORMAL) Complete blood count (09/24/2024 5:45 AM EDT) WBC 7.3 4.8 - 10.8 K/mcL LAB HEMETOLOGY METHOD 09/24/2024 10:05 AM [facility] RBC 3.70(L) 4.50 - 5.50 M/mcL LAB HEMETOLOGY METHOD 09/24/2024 10:05 AM [facility] Hemoglobin 11.0(L) 13.5 - 17.5 g/dL LAB HEMETOLOGY METHOD 09/24/2024 10:05 AM [facility] Hematocrit 35.4(L) 42.0 - 54.0 % LAB HEMETOLOGY METHOD 09/24/2024 10:05 AM [facility] MCV 96.2 79.0 - 98.0 FL LAB HEMETOLOGY METHOD 09/24/2024 10:05 AM [facility] MCH 29.9 27.0 - 32.0 pcg LAB HEMETOLOGY METHOD 09/24/2024 10:05 AM [facility] MCHC 31.1(L) 32.0 - 37.0 g/dL LAB HEMETOLOGY METHOD 09/24/2024 10:05 AM [facility] RDW 16.4(H) 11.0 - 15.0 % LAB HEMETOLOGY METHOD 09/24/2024 10:05 AM [facility] Platelets 480(H) 130 - 400 K/mcL LAB HEMETOLOGY METHOD 09/24/2024 10:05 AM [facility] MPV 12.1(H) 7.0 - 11.0 FL LAB HEMETOLOGY METHOD 09/24/2024 10:05 AM [facility] NRBC 0.0 <1.0 % LAB HEMETOLOGY METHOD 09/24/2024 10:05 AM [facility] NRBC Absolute 0.00 <0.10 K/mcL LAB HEMETOLOGY METHOD 09/24/2024 10:05 AM [facility] Blood Venous blood specimen / Unknown Venipuncture / Unknown 09/24/2024 5:45 AM EDT 09/24/2024 9:53 AM EDT us Prince Le MD LAB BLOOD ORDERABLES Final Resul t [facility] [address] [place] [address], documented in this encounter Visit Diagnoses Diagnosis Type 2 diabetes mellitus without complications (CMS/HCC V24, CMS/HCC V28) documented in this encounter Care Teams Real Estate Broker Associate Relationship Specialty Start Date End Date Tram Álvarez MD 2 [facility] , [address] Physician Associ D/B/A: [facility] [place], [place] PCP - General Internal Medicine 03/30/18 documented as of this encounter
--- OUTSIDE RECORDS SUMMARY | 2025-05-10 17:00 | XMS_ITS | Encounter Summary ---
Author Organization [facility] Address [address] [place] [address] Care Team Providers Care Medical Technologist Name Role Phone Tram Álvarez MD Primary Care Provider [phone] Encounter Details Date Type Department Care Team (Late st Contact Info) Description 09/09/2024 Lab Requisition [facility] - Main Lab 299 [facility] [place] [address] Prince Le MD 38 [facility] [address] [place], [address] Type 2 diabetes mellitus without complications [...] documented in this encounter Care Teams Medical Technologist Relationship Specialty Start Date End Date Tram Álvarez MD [address] [place] [address] , [address] [facility] Physician Associ D/B/A: [facility] [place], [place] PCP - General Internal Medicine 03/30/18 documented as of this encounter
--- OUTSIDE RECORDS SUMMARY | 2025-05-10 17:00 | XMS_ITS | Encounter Summary ---
Author Organization [facility] Address [address] [place] [address] Care Team Providers Care Coordinator Of Library Services Name Role Phone Tram Álvarez MD Primary Care Provider [phone] Encounter Details Date Type Department Care Team (Late st Contact Info) Description 05/21/2024 Lab Requisition [facility] - Main Lab [address] [place] [address] Prince Le MD [address] [facility] [address] [place], [address] Essential (primary) hypertension Social History Tobacco [...] Final Resul t [facility] [address] [place] [address], * (ABNORMAL) Complete blood count (05/24/2024 6:00 AM EST) WBC 9.3 4.8 - 10.8 K/[facility] LAB HEMETOLOGY METHOD 05/24/2024 9:03 AM [facility] LAB Platelets 249 130 - 400 K/[facility] LAB HEMETOLOGY METHOD 05/24/2024 9:03 AM [facility] t [facility] [address] [place] [address], documented in this encounter Visit Diagnoses Diagnosis Essential (primary) hypertension Unspecified essential hypertension documented in this encounter Care Teams Coordinator Of Library Services Relationship Specialty Start Date End Date Tram Álvarez MD 2 [facility] , [address] [place] [address] Physician Associ D/B/A: [facility] JAS Duque PCP - General Internal Medicine 03/30/18 documented as of this encounter
== END 2025-05-10 13:58 | disposition home or self-care (01) ==
LOC: HO.US 13:57
PROVIDERS: PCP Internal Medicine; Visit Provider Physician Assistant
DX: R60.0 Localized edema (principal)
CPT/HCPCS: 93970

== ENCOUNTER → 2025-05-10 13:58 | Outpatient (BNV) | payer OTHER, SELFPAY | PROVIDERS: PCP Internal Medicine; Visit Provider Radiology Diagnostic Ultrasound | DX: M79.89 Other specified soft tissue disorders (principal) | CPT/HCPCS: 93970 ==

== ENCOUNTER 2025-05-12 10:37 | Day surgery (SDC) | payer OTHER, SELFPAY ==
--- OUTSIDE RECORDS SUMMARY | 2025-04-01 14:45 | XMS_ITS | Encounter Summary ---
Author Organization [facility] Address [address] [place] [address] Care Team Providers Care It Software Developer Name Role Phone Tram Álvarez MD Primary Care Provider [phone] Encounter Details Date Type Department Care Team (Late st Contact Info) Description 05/21/2024 Lab Requisition [facility] - Main Lab [address] [place] [address] Prince Le MD 38 [facility] 204 [place], [address] Essential (primary) hypertension Social History Tobacco [...] LAB CHEMISTRY METHOD 05/24/2024 9:02 AM EST [facility] LAB Potassium 4.2 3.5 - 5.5 mmol/L LAB CHEMISTRY METHOD 05/24/2024 9:02 AM EST [facility] LAB Chloride 109 96 - 110 mmol/L LAB CHEMISTRY METHOD 05/24/2024 9:02 AM [facility] CO2 28 21 - 32 mmol/L LAB CHEMISTRY METHOD 05/24/2024 9:02 AM [facility] LAB Anion Gap 5 3 - 11 LAB CHEMISTRY METHOD 05/24/2024 9:02 AM [facility] Glucose 129(H) 70 - 100 mg/dL LAB CHEMISTRY METHOD 05/24/2024 9:02 AM [facility] BUN 38(H) 5 - 25 mg/dL LAB CHEMISTRY METHOD 05/24/2024 9:02 AM [facility] Creatinine 1.33(H) 0.70 - 1.30 mg/dL LAB CHEMISTRY METHOD 05/24/2024 9:02 AM [facility] LAB eGFR 58(L) >=60 mL/min/1. 73m2 LAB CHEMISTRY METHOD 05/24/2024 9:02 AM [facility] LAB Comment:Calculation based on the Chronic Kidney Disease Epidemiology Collaboration (CKD-EPI) equation refit without adjustment for race. BUN/Creatinine Ratio 28.6 LAB CHEMISTRY METHOD 05/24/2024 9:02 AM [facility] Calcium 9.2 8.5 - 10.5 mg/dL LAB CHEMISTRY METHOD 05/24/2024 9:02 AM [facility] Blood Venous blood specimen / Unknown Venipuncture / Unknown 05/24/2024 6:00 AM EST 05/24/2024 7:45 AM EST us Prince Le MD LAB BLOOD ORDERABLES Final Resul t [facility] [address] [place] [address], * (ABNORMAL) Complete blood count (05/24/2024 6:00 AM EST) WBC 9.3 4.8 - 10.8 K/mcL LAB HEMETOLOGY METHOD 05/24/2024 9:03 AM [facility] RBC 4.90 4.50 - 5.50 M/mcL LAB HEMETOLOGY METHOD 05/24/2024 9:03 AM [facility] Hemoglobin 13.6 13.5 - 17.5 g/dL LAB HEMETOLOGY METHOD 05/24/2024 9:03 AM [facility] Hematocrit 43.1 42.0 - 54.0 % LAB HEMETOLOGY METHOD 05/24/2024 9:03 AM [facility] MCV 87.4 79.0 - 98.0 FL LAB HEMETOLOGY METHOD 05/24/2024 9:03 AM [facility] MCH 27.6 27.0 - 32.0 pcg LAB HEMETOLOGY METHOD 05/24/2024 9:03 AM [facility] MCHC 31.6(L) 32.0 - 37.0 g/dL LAB HEMETOLOGY METHOD 05/24/2024 9:03 AM [facility] RDW 16.4(H) 11.0 - 15.0 % LAB HEMETOLOGY METHOD 05/24/2024 9:03 AM [facility] Platelets 249 130 - 400 K/mcL LAB HEMETOLOGY METHOD 05/24/2024 9:03 AM [facility] MPV 13.1(H) 7.0 - 11.0 FL LAB HEMETOLOGY METHOD 05/24/2024 9:03 AM [facility] NRBC 0.0 <1.0 % LAB HEMETOLOGY METHOD 05/24/2024 9:03 AM [facility] NRBC Absolute 0.00 <0.10 K/mcL LAB HEMETOLOGY METHOD 05/24/2024 9:03 AM [facility] Blood Venous blood specimen / Unknown Venipuncture / Unknown 05/24/2024 6:00 AM EST 05/24/2024 7:45 AM EST us Prince Le MD LAB BLOOD ORDERABLES Final Resul t [facility] [address] [place] [address], [place] [phone] documented in this encounter Visit Diagnoses Diagnosis Essential (primary) hypertension Unspecified essential hypertension documented in this encounter Care Teams It Software Developer Relationship Specialty Start Date End Date Tram Álvarez MD 2 [facility] , [address] [place] [address] Physician Associ D/B/A: [facility] JAS Duque PCP - General Internal Medicine 03/30/18 documented as of this encounter
--- OUTSIDE RECORDS SUMMARY | 2025-04-01 14:45 | XMS_ITS | Encounter Summary ---
Author Organization [facility] Address [address] [place] [address] Care Team Providers Care Fuel Cell Technician Name Role Phone Tram Álvarez MD Primary Care Provider [phone] Encounter Details Date Type Department Care Team (Late st Contact Info) Description 08/26/2024 Lab Requisition [facility] - Main Lab 299 [facility] [place] [address] Prince Le MD 38 [facility] [address] [place], [address] Type 2 diabetes mellitus without complications [...] Resul t [facility] [address] [place] [address], * (ABNORMAL) C-reactive protein (08/27/2024 6:34 AM EST) C-Reactive Protein 1.47(H) <=0.50 mg/dL LAB CHEMISTRY METHOD 08/27/2024 9:27 AM [facility] LAB Blood Venous blood specimen / Unknown Venipuncture / Unknown 08/27/2024 6:34 AM EST 08/27/2024 8:52 AM EST us Prince Le MD LAB BLOOD ORDERABLES Final Resul t [facility] [address] [place] [address], [place] [phone] * (ABNORMAL) Comprehensive metabolic panel (08/27/2024 6:34 [...] Resul t [facility] [address] [place] [address], * (ABNORMAL) Complete blood count (08/27/2024 6:34 [...] Resul t [facility] [address] [place] [address], documented in this encounter Visit Diagnoses Diagnosis Type 2 diabetes mellitus without complications (CMS/HCC V24, CMS/HCC V28) documented in this encounter Care Teams Fuel Cell Technician Relationship Specialty Start Date End Date Tram Álvarez MD 2 [facility] , [address] [facility] Physician Associ D/B/A: [facility] [place], [place] PCP - General Internal Medicine 03/30/18 documented as of this encounter
--- OUTSIDE RECORDS SUMMARY | 2025-04-01 14:45 | XMS_ITS | Encounter Summary ---
Author Organization [facility] Address [address] [place] [address] Care Team Providers Care Carcass Splitter Name Role Phone Tram Álvarez MD Primary Care Provider [phone] Encounter Details Date Type Department Care Team (Late st Contact Info) Description 10/07/[address] [facility] - Main Lab [address] [place] [address] Prince Le MD 38 [facility] 204 [place], [address] Type 2 diabetes mellitus without complications [...] AM EDT) WBC 17.5(H) 4.8 - 10.8 K/[facility] LAB HEMETOLOGY METHOD 10/07/2024 9:32 AM [facility] RBC 3.80(L) 4.50 - 5.50 M/mcL LAB HEMETOLOGY METHOD 10/07/2024 9:32 AM [facility] Hemoglobin 11.2(L) 13.5 - 17.5 g/dL LAB HEMETOLOGY METHOD 10/07/2024 9:32 AM [facility] LAB Hematocrit 35.1(L) 42.0 - 54.0 % LAB HEMETOLOGY METHOD 10/07/2024 9:32 AM [facility] MCV 92.4 79.0 - 98.0 FL LAB HEMETOLOGY METHOD 10/07/2024 9:32 AM [facility] MCH 29.5 27.0 - 32.0 pcg LAB HEMETOLOGY METHOD 10/07/2024 9:32 AM [facility] LAB MCHC 31.9(L) 32.0 - 37.0 g/dL LAB HEMETOLOGY METHOD 10/07/2024 9:32 AM [facility] LAB RDW 16.6(H) 11.0 - 15.0 % LAB HEMETOLOGY METHOD 10/07/2024 9:32 AM [facility] LAB Platelets 230 130 - 400 K/mcL LAB HEMETOLOGY METHOD 10/07/2024 9:32 AM [facility] LAB MPV 13.0(H) 7.0 - 11.0 FL LAB HEMETOLOGY METHOD 10/07/2024 9:32 AM [facility] NRBC 0.0 <1.0 % LAB HEMETOLOGY METHOD 10/07/2024 9:32 AM [facility] NRBC Absolute 0.00 <0.10 K/mcL LAB HEMETOLOGY METHOD 10/07/2024 9:32 AM [facility] Neutrophils Relative 82.3 % LAB HEMETOLOGY METHOD 10/07/2024 9:32 AM [facility] Lymphocytes Relative 10.0 % LAB HEMETOLOGY METHOD 10/07/2024 9:32 AM [facility] Monocytes Relative 4.6 % LAB HEMETOLOGY METHOD 10/07/2024 9:32 AM [facility] Eosinophils Relative 2.2 % LAB HEMETOLOGY METHOD 10/07/2024 9:32 AM [facility] Basophils Relative 0.3 % LAB HEMETOLOGY METHOD 10/07/2024 9:32 AM [facility] Immature Granulocytes Relative 0.6 % LAB HEMETOLOGY METHOD 10/07/2024 9:32 AM [facility] Neutrophils Absolute 14.41(H) 1.50 - 7.00 K/mcL LAB HEMETOLOGY METHOD 10/07/2024 9:32 AM [facility] Lymphocytes Absolute 1.74 1.00 - 5.00 K/mcL LAB HEMETOLOGY METHOD 10/07/2024 9:32 AM [facility] Monocytes Absolute 0.80 0.20 - 1.00 K/mcL LAB HEMETOLOGY METHOD 10/07/2024 9:32 AM [facility] Eosinophils Absolute 0.38 0.00 - 0.50 K/mcL LAB HEMETOLOGY METHOD 10/07/2024 9:32 AM [facility] Basophils Absolute 0.05 0.00 - 0.20 K/mcL LAB HEMETOLOGY METHOD 10/07/2024 9:32 AM [facility] Immature Granulocytes Absolute 0.10(H) 0.00 - 0.03 K/mcL LAB HEMETOLOGY METHOD 10/07/2024 9:32 AM [facility] Blood Venous blood specimen / Unknown Venipuncture / Unknown 10/07/2024 5:18 AM EDT 10/07/2024 8:56 AM EDT us Prince Le MD LAB BLOOD ORDERABLES Final Resul t [facility] [address] [place] [address], [place] [phone] * (ABNORMAL) Basic metabolic panel (10/07/2024 5:18 AM EDT) Sodium 132(L) 133 - 145 mmol/L LAB CHEMISTRY METHOD 10/07/2024 10:16 AM [facility] Potassium 5.0 3.5 - 5.5 mmol/L LAB CHEMISTRY METHOD 10/07/2024 10:16 AM [facility] Chloride 99 96 - 110 mmol/L LAB CHEMISTRY METHOD 10/07/2024 10:16 AM [facility] CO2 22 21 - 32 mmol/L LAB CHEMISTRY METHOD 10/07/2024 10:16 AM [facility] Anion Gap 11 3 - 11 LAB CHEMISTRY METHOD 10/07/2024 10:16 AM [facility] Glucose 82 70 - 100 mg/dL LAB CHEMISTRY METHOD 10/07/2024 10:16 AM [facility] BUN 54(H) 5 - 25 mg/dL LAB CHEMISTRY METHOD 10/07/2024 10:16 AM [facility] Creatinine 2.44(H) 0.70 - 1.30 mg/dL LAB CHEMISTRY METHOD 10/07/2024 10:16 AM [facility] eGFR 28(L) >=60 mL/min/1. 73m2 LAB CHEMISTRY METHOD 10/07/2024 10:16 AM [facility] Comment:Calculation based on [...] Resul t [facility] [address] [place] [address], [place] [phone] documented in this encounter Visit Diagnoses Diagnosis Type 2 diabetes mellitus without complications (CMS/HCC V24, CMS/HCC V28) documented in this encounter Care Teams Carcass Splitter Relationship Specialty Start Date End Date Tram Álvarez MD 2 [facility] , [address] [place] [address] Physician Associ D/B/A: [facility] [place] PCP - General Internal Medicine 03/30/18 documented as of this encounter
--- OUTSIDE RECORDS SUMMARY | 2025-04-01 14:45 | XMS_ITS | Encounter Summary ---
Author Organization [facility] Address [address] [place] [address] Care Team Providers Care Tooling Engineer Name Role Phone Tram Álvarez MD Primary Care Provider [phone] Encounter Details Date Type Department Care Team (Late st Contact Info) Description 07/22/2024 Lab Requisition [facility] - Main Lab [address] [place] [address] Prince Le MD 38 [facility] [address] [place], [address] Type 2 diabetes mellitus without complications [...] mg/dL LAB CHEMISTRY METHOD 07/23/2024 10:47 AM [facility] Blood Venous blood specimen / Unknown Venipuncture / Unknown 07/23/2024 6:52 AM EST 07/23/2024 9:26 AM EST us Prince Le MD LAB BLOOD ORDERABLES Final Resul t [facility] [address] [place] [address], * (ABNORMAL) Comprehensive metabolic panel (07/23/2024 6:52 AM EST) Sodium 137 133 - 145 mmol/L LAB CHEMISTRY METHOD 07/23/2024 10:47 AM [facility] Potassium 5.3 3.5 - 5.5 mmol/L LAB CHEMISTRY METHOD 07/23/2024 10:47 AM [facility] Chloride 102 96 - 110 mmol/L LAB CHEMISTRY METHOD 07/23/2024 10:47 AM [facility] CO2 28 21 - 32 mmol/L LAB CHEMISTRY METHOD 07/23/2024 10:47 AM [facility] Anion Gap 7 3 - 11 LAB CHEMISTRY METHOD 07/23/2024 10:47 AM [facility] Glucose 78 70 - 100 mg/dL LAB CHEMISTRY METHOD 07/23/2024 10:47 AM [facility] BUN 39(H) 5 - 25 mg/dL LAB CHEMISTRY METHOD 07/23/2024 10:47 AM [facility] Creatinine 1.58(H) 0.70 - 1.30 mg/dL LAB CHEMISTRY METHOD 07/23/2024 10:47 AM [facility] LAB eGFR 47(L) >=60 mL/min/1. 73m2 LAB CHEMISTRY METHOD 07/23/2024 10:47 AM [facility] Comment:Calculation based on the Chronic Kidney Disease Epidemiology Collaboration (CKD-EPI) equation refit without adjustment for race. BUN/Creatinine Ratio 24.7 LAB CHEMISTRY METHOD 07/23/2024 10:47 AM [facility] Calcium 9.5 8.5 - 10.5 mg/dL LAB CHEMISTRY METHOD 07/23/2024 10:47 AM [facility] LAB AST (SGOT) 25 10 - 42 unit/L LAB CHEMISTRY METHOD 07/23/2024 10:47 AM [facility] LAB ALT (SGPT) 26 10 - 60 unit/L LAB CHEMISTRY METHOD 07/23/2024 10:47 AM [facility] Alkaline Phosphatase 68 42 - 121 unit/L LAB CHEMISTRY METHOD 07/23/2024 10:47 AM [facility] Total Protein 6.9 6.0 - 8.0 g/dL LAB CHEMISTRY METHOD 07/23/2024 10:47 AM [facility] Albumin 3.5 3.2 - 5.0 g/dL LAB CHEMISTRY METHOD 07/23/2024 10:47 AM [facility] Total Bilirubin 0.4 0.0 - 1.4 mg/dL LAB CHEMISTRY METHOD 07/23/2024 10:47 AM [facility] Blood Venous blood specimen / Unknown Venipuncture / Unknown 07/23/2024 6:52 AM EST 07/23/2024 9:26 AM EST us Prince Le MD LAB BLOOD ORDERABLES Final Resul t [facility] [address] [place] [address], * (ABNORMAL) Complete blood count (07/23/2024 6:52 AM EST) WBC 9.2 4.8 - 10.8 K/mcL LAB HEMETOLOGY METHOD 07/23/2024 10:13 AM EST [facility] RBC 4.90 4.50 - 5.50 M/mcL LAB HEMETOLOGY METHOD 07/23/2024 10:13 AM [facility] Hemoglobin 13.6 13.5 - 17.5 g/dL LAB HEMETOLOGY METHOD 07/23/2024 10:13 AM [facility] Hematocrit 41.2(L) 42.0 - 54.0 % LAB HEMETOLOGY METHOD 07/23/2024 10:13 AM [facility] MCV 83.7 79.0 - 98.0 FL LAB HEMETOLOGY METHOD 07/23/2024 10:13 AM [facility] MCH 27.6 27.0 - 32.0 pcg LAB HEMETOLOGY METHOD 07/23/2024 10:13 AM [facility] MCHC 33.0 32.0 - 37.0 g/dL LAB HEMETOLOGY METHOD 07/23/2024 10:13 AM [facility] LAB RDW 19.0(H) 11.0 - 15.0 % LAB HEMETOLOGY METHOD 07/23/2024 10:13 AM [facility] Platelets 364 130 - 400 K/mcL LAB HEMETOLOGY METHOD 07/23/2024 10:13 AM [facility] MPV 12.2(H) 7.0 - 11.0 FL LAB HEMETOLOGY METHOD 07/23/2024 10:13 AM [facility] LAB NRBC 0.0 <1.0 % LAB HEMETOLOGY METHOD 07/23/2024 10:13 AM [facility] LAB NRBC Absolute 0.00 <0.10 K/mcL LAB HEMETOLOGY METHOD 07/23/2024 10:13 AM [facility] Blood Venous blood specimen / Unknown Venipuncture / Unknown 07/23/2024 6:52 AM EST 07/23/2024 9:26 AM EST us Prince Le MD LAB BLOOD ORDERABLES Final Resul t [facility] [address] [place] [address], documented in this encounter Visit Diagnoses Diagnosis Type 2 diabetes mellitus without complications (CMS/HCC V24, CMS/HCC V28) documented in this encounter Care Teams Tooling Engineer Relationship Specialty Start Date End Date Tram Álvarez MD 2 [facility] , [address] [facility] Physician Associ D/B/A: [facility] [place], [place] PCP - General Internal Medicine 03/30/18 documented as of this encounter
--- OUTSIDE RECORDS SUMMARY | 2025-04-01 14:45 | XMS_ITS | Clinical Summary ---
Author Organization [facility] Address [address] [place] [address] Phone Care Team Providers Care Receiving And Processing Supervisor Name Role Phone Tram Álvarez MD Primary Care Provider [phone] Encounters Date Type Department Care Team Description 03/01/2025 Lab Requisition [facility] Lab [address] [place] [address] Preeti Lujan MD Essential (primary) hypertension 02/24/2025 Lab Requisition [facility] Lab [address] [place] [address] Preeti Lujan MD Essential (primary) [...] EDT Type 2 diabetes mellitus without complications ([facility] V24, [facility] V28) LIPID PANEL WITH REFLEX TO DIRECT LDL Routine 08/27/2024 6:34 AM EST Type 2 diabetes mellitus without complications ([facility]) from Last 3 Months or Most Recently Relevant to Health Maintenance Results * (ABNORMAL) Basic metabolic panel (03/01/2025 6:05 AM EDT) Only the most recent of2 resultswithin the time period is included. Sodium 141 133 - 145 mmol/L LAB CHEMISTRY METHOD 03/01/2025 11:14 AM [facility] Potassium 4.6 3.5 - 5.5 mmol/L LAB CHEMISTRY METHOD 03/01/2025 11:14 AM [facility] Chloride 112(H) 96 - 110 mmol/L LAB CHEMISTRY METHOD 03/01/2025 11:14 AM [facility] CO2 25 21 - 32 mmol/L LAB CHEMISTRY METHOD 03/01/2025 11:14 AM [facility] Anion Gap 4 3 - 11 LAB CHEMISTRY METHOD 03/01/2025 11:14 AM [facility] Glucose 135(H) 70 - 100 mg/dL LAB CHEMISTRY METHOD 03/01/2025 11:14 AM [facility] BUN 25 5 - 25 mg/dL LAB CHEMISTRY METHOD 03/01/2025 11:14 AM [facility] Creatinine 0.76 0.70 - 1.30 mg/dL LAB CHEMISTRY METHOD 03/01/2025 11:14 AM [facility] LAB eGFR 97 >=60 mL/min/1. 73m2 LAB CHEMISTRY METHOD 03/01/2025 11:14 AM [facility] LAB Comment:Calculation based on the Chronic Kidney Disease Epidemiology Collaboration (CKD-EPI) equation refit without adjustment for race. BUN/Creatinine Ratio 32.9 LAB CHEMISTRY METHOD 03/01/2025 11:14 AM EDT [facility] Calcium 8.5 8.5 - 10.5 mg/dL LAB CHEMISTRY METHOD 03/01/2025 11:14 AM [facility] Blood Venous blood specimen / Unknown Venipuncture / Unknown 03/01/2025 6:05 AM EDT 03/01/2025 8:40 AM EDT us Preeti Lujan MD LAB BLOOD ORDERABLES Fin al Result [facility] [address] [place] [address], * (ABNORMAL) Complete blood count (02/24/2025 6:34 AM EDT) WBC 7.9 4.8 - 10.8 K/mcL LAB HEMETOLOGY METHOD 02/24/2025 9:35 AM [facility] RBC 3.90(L) 4.50 - 5.50 M/mcL LAB HEMETOLOGY METHOD 02/24/2025 9:35 AM [facility] Hemoglobin 11.0(L) 13.5 - 17.5 g/dL LAB HEMETOLOGY METHOD 02/24/2025 9:35 AM [facility] Hematocrit 36.9(L) 42.0 - 54.0 % LAB HEMETOLOGY METHOD 02/24/2025 9:35 AM [facility] LAB MCV 95.3 79.0 - 98.0 FL LAB HEMETOLOGY METHOD 02/24/2025 9:35 AM [facility] MCH 28.4 27.0 - 32.0 pcg LAB HEMETOLOGY METHOD 02/24/2025 9:35 AM EDT [facility] MCHC 29.8(L) 32.0 - 37.0 g/dL LAB HEMETOLOGY METHOD 02/24/2025 9:35 AM EDT [facility] RDW 17.6(H) 11.0 - 15.0 % LAB HEMETOLOGY METHOD 02/24/2025 9:35 AM EDT [facility] Platelets 287 130 - 400 K/mcL LAB HEMETOLOGY METHOD 02/24/2025 9:35 AM EDT [facility] MPV 12.9(H) 7.0 - 11.0 FL LAB HEMETOLOGY METHOD 02/24/2025 9:35 AM EDT [facility] NRBC 0.0 <1.0 % LAB HEMETOLOGY METHOD 02/24/2025 9:35 AM EDT [facility] NRBC Absolute 0.00 <0.10 K/mcL LAB HEMETOLOGY METHOD 02/24/2025 9:35 AM EDT [facility] Blood Venous blood specimen / Unknown Venipuncture / Unknown 02/24/2025 6:34 AM EDT 02/24/2025 8:31 AM EDT us Preeti Lujan MD LAB BLOOD ORDERABLES Fin al Result [facility] [address] [place] [address], * Hemoglobin A1c (10/22/2024 6:43 AM EDT) Hemoglobin A1C 5.5 <6.5 % LAB CHEMISTRY METHOD 10/22/2024 2:03 PM EDT [facility] Mean Bld Glu Estim. 111 mg/dL LAB CHEMISTRY METHOD 10/22/2024 2:03 PM EDT [facility] Blood Venous blood specimen / Unknown Venipuncture / Unknown 10/22/2024 6:43 AM EDT 10/22/2024 9:05 AM EDT us Preeti Lujan MD LAB BLOOD ORDERABLES Fin al Result Performing Organization Address City/[facility]/ZIP Co de Phone Number [facility] [address] [place] [address], [place] [phone] * (ABNORMAL) Lipid panel with reflex to direct LDL (08/27/2024 6:34 AM EST) [facility] Cholesterol 96 0 - 200 mg/dL LAB CHEMISTRY METHOD 08/27/2024 9:27 AM EST [facility] Triglycerides 249(H) 0 - 150 mg/dL LAB CHEMISTRY METHOD 08/27/2024 9:27 AM [facility] HDL 30(L) >=40 mg/dL LAB CHEMISTRY METHOD 08/27/2024 9:27 AM EST [facility] LDL Calculated 16 0 - 100 mg/dL LAB CHEMISTRY METHOD 08/27/2024 9:27 AM EST [facility] VLDL Cholesterol Maikel 49.8 mg/dL LAB CHEMISTRY METHOD 08/27/2024 9:27 AM EST [facility] Non HDL Chol. (LDL+VLDL) 66 <145 mg/dL LAB CHEMISTRY METHOD 08/27/2024 9:27 AM EST [facility] Chol/HDL Ratio 3.2 0.0 - 4.4 LAB CHEMISTRY METHOD 08/27/2024 9:27 AM [facility] Blood Venous blood specimen / Unknown Venipuncture / Unknown 08/27/2024 6:34 AM EST 08/27/2024 8:52 AM EST us Prince Le MD LAB BLOOD ORDERABLES Final Resul t Performing Organization Address [facility]/ZIP Co de Phone Number [facility] [address] [place] [address], [place] [phone] from Last 3 Months or Most Recently Relevant to Health Maintenance Insurance [employer] Member Subscriber Plan / Payer (Ef fective 2023-Present) Name:EDER GARCIA Relation to Subscriber:Self Name:Rick Eder Talamantes Payer ID:[id number] Group ID:[id number] Type:Not on file Address: [place] [address] [address] [id number] Care Teams Receiving And Processing Supervisor Relationship Specialty Start Date End Date Tram Álvarez MD [address] [place] [address] , [address] [facility] Physician Associ D/B/A: [facility] [place] Du[place] PCP - General Internal Medicine 03/30/18
--- OUTSIDE RECORDS SUMMARY | 2025-04-01 14:45 | XMS_ITS | Encounter Summary ---
Author Organization [facility] Address [address] [place] [address] Care Team Providers Care Molded Grid And Parts Inspector Name Role Phone Tram Álvarez MD Primary Care Provider [phone] Encounter Details Date Type Department Care Team (Late st Contact Info) Description 05/28/[address] [facility] - Main Lab [address] [place] [address] Prince Le MD 38 [facility] [address] [place], [address] Essential (primary) hypertension Social History Tobacco [...] Resul t [facility] [address] [place] [address], * (ABNORMAL) Complete blood count (05/31/2024 7:20 AM EST) WBC 8.8 4.8 - 10.8 K/mcL LAB HEMETOLOGY METHOD 05/31/2024 10:39 AM [facility] RBC 5.10 4.50 - 5.50 [...] 10:39 AM [facility] NRBC Absolute 0.00 <0.10 K/mcL LAB HEMETOLOGY METHOD 05/31/2024 10:39 AM [facility] Blood Venous blood specimen / Unknown Venipuncture / Unknown 05/31/2024 7:20 AM EST 05/31/2024 10:16 AM EST us Prince Le MD LAB BLOOD ORDERABLES Final Resul t [email or web address] [address] [place] [address], [place] [phone] documented in this encounter Visit Diagnoses Diagnosis Essential (primary) hypertension Unspecified essential hypertension documented in this encounter Care Teams Molded Grid And Parts Inspector Relationship Specialty Start Date End Date Tram Álvarez MD 2 [facility] , [address] [facility] Physician Associ D/B/A: [facility] [place], [place] PCP - General Internal Medicine 03/30/18 documented as of this encounter
--- OUTSIDE RECORDS SUMMARY | 2025-04-01 14:45 | XMS_ITS | Encounter Summary ---
Author Organization [facility] Address [address] [place] [address] Care Team Providers Care Industrial Gas Production Operator Name Role Phone Tram Álvarez MD Primary Care Provider [phone] Encounter Details Date Type Department Care Team (Late st Contact Info) Description 08/12/2024 Lab Requisition [facility] - Main Lab [address] [place] [address] Prince Le MD 38 [facility] [address] [place], [address] Type 2 diabetes mellitus without complications [...] mg/dL LAB CHEMISTRY METHOD 08/13/2024 11:42 AM [facility] Blood Venous blood specimen / Unknown Venipuncture / Unknown 08/13/2024 7:38 AM EST 08/13/2024 11:02 AM EST us Prince Le MD LAB BLOOD ORDERABLES Final Resul t [facility] [address] [place] [address], * (ABNORMAL) Comprehensive metabolic panel (08/13/2024 7:38 AM EST) Sodium 137 133 - 145 mmol/L LAB CHEMISTRY METHOD 08/13/2024 11:42 AM [facility] LAB Potassium 5.1 3.5 - 5.5 mmol/L LAB CHEMISTRY METHOD 08/13/2024 11:42 AM [facility] Chloride 103 96 - 110 mmol/L LAB CHEMISTRY METHOD 08/13/2024 11:42 AM [facility] CO2 29 21 - 32 mmol/L LAB CHEMISTRY METHOD 08/13/2024 11:42 AM [facility] Anion Gap 5 3 - 11 LAB CHEMISTRY METHOD 08/13/2024 11:42 AM [facility] Glucose 90 70 - 100 mg/dL LAB CHEMISTRY METHOD 08/13/2024 11:42 AM [facility] BUN 31(H) 5 - 25 mg/dL LAB CHEMISTRY METHOD 08/13/2024 11:42 AM [facility] Creatinine 0.98 0.70 - 1.30 mg/dL LAB CHEMISTRY METHOD 08/13/2024 11:42 AM [facility] LAB eGFR 84 >=60 mL/min/1. 73m2 LAB CHEMISTRY METHOD 08/13/2024 11:42 AM [facility] LAB Comment:Calculation based on the Chronic Kidney Disease Epidemiology Collaboration (CKD-EPI) equation refit without adjustment for race. BUN/Creatinine Ratio 31.6 LAB CHEMISTRY METHOD 08/13/2024 11:42 AM [facility] Calcium 9.2 8.5 - 10.5 mg/dL LAB CHEMISTRY METHOD 08/13/2024 11:42 AM [facility] AST (SGOT) 36 10 - 42 unit/L LAB CHEMISTRY METHOD 08/13/2024 11:42 AM [facility] ALT (SGPT) 32 10 - 60 unit/L LAB CHEMISTRY METHOD 08/13/2024 11:42 AM [facility] LAB Alkaline Phosphatase 47 42 - 121 unit/L LAB CHEMISTRY METHOD 08/13/2024 11:42 AM [facility] Total Protein 6.4 6.0 - 8.0 g/dL LAB CHEMISTRY METHOD 08/13/2024 11:42 AM [facility] Albumin 3.4 3.2 - 5.0 g/dL LAB CHEMISTRY METHOD 08/13/2024 11:42 AM [facility] Total Bilirubin 0.6 0.0 - 1.4 mg/dL LAB CHEMISTRY METHOD 08/13/2024 11:42 AM [facility] LAB Blood Venous blood specimen / Unknown Venipuncture / Unknown 08/13/2024 7:38 AM EST 08/13/2024 11:02 AM EST us Prince Le MD LAB BLOOD ORDERABLES Final Resul t [facility] [address] [place] [address], * (ABNORMAL) Complete blood count (08/13/2024 7:30 AM EST) WBC 8.4 4.8 - 10.8 K/mcL LAB HEMETOLOGY METHOD 08/13/2024 11:11 AM [facility] RBC 4.20(L) 4.50 - 5.50 M/mcL LAB HEMETOLOGY METHOD 08/13/2024 11:11 AM [facility] Hemoglobin 11.6(L) 13.5 - 17.5 g/dL LAB HEMETOLOGY METHOD 08/13/2024 11:11 AM [facility] LAB Hematocrit 36.1(L) 42.0 - 54.0 % LAB HEMETOLOGY METHOD 08/13/2024 11:11 AM [facility] LAB MCV 86.2 79.0 - 98.0 FL LAB HEMETOLOGY METHOD 08/13/2024 11:11 AM [facility] LAB MCH 27.7 27.0 - 32.0 pcg LAB HEMETOLOGY METHOD 08/13/2024 11:11 AM [facility] LAB MCHC 32.1 32.0 - 37.0 g/dL LAB HEMETOLOGY METHOD 08/13/2024 11:11 AM [facility] RDW 21.2(H) 11.0 - 15.0 % LAB HEMETOLOGY METHOD 08/13/2024 11:11 AM [facility] LAB Platelets 338 130 - 400 K/mcL LAB HEMETOLOGY METHOD 08/13/2024 11:11 AM [facility] MPV 12.8(H) 7.0 - 11.0 FL LAB HEMETOLOGY METHOD 08/13/2024 11:11 AM [facility] NRBC 0.0 <1.0 % LAB HEMETOLOGY METHOD 08/13/2024 11:11 AM [facility] LAB NRBC Absolute 0.00 <0.10 K/mcL LAB HEMETOLOGY METHOD 08/13/2024 11:11 AM [facility] LAB Blood Venous blood specimen / Unknown Venipuncture / Unknown 08/13/2024 7:30 AM EST 08/13/2024 10:59 AM EST us Prince Le MD LAB BLOOD ORDERABLES Final Resul t [facility] [address] [place] [address], documented in this encounter Visit Diagnoses Diagnosis Type 2 diabetes mellitus without complications (CMS/HCC V24, CMS/HCC V28) documented in this encounter Care Teams Industrial Gas Production Operator Relationship Specialty Start Date End Date Tram Álvarez MD 2 [facility] , [address] [facility] Physician Associ D/B/A: [facility] [place], [place] PCP - General Internal Medicine 03/30/18 documented as of this encounter
--- OUTSIDE RECORDS SUMMARY | 2025-04-01 14:45 | XMS_ITS | Encounter Summary ---
Author Organization [facility] Address [address] [place] [address] Care Team Providers Care Area Development Consultant Name Role Phone Tram Álvarez MD Primary Care Provider Encounter Details Date Type Department Care Team (Late st Contact Info) Description 10/18/2024 Lab Requisition [facility] - Main Lab [address] [place] [address] Preeti Lujan MD [address] [id number] Sepsis, unspecified organism (CMS/HCC V24, CMS/HCC V28) [...] LAB CHEMISTRY METHOD 10/18/2024 1:15 PM EDT [facility] ([facility]) [facility] Potassium 4.0 3.5 - 5.5 [...] MD LAB BLOOD ORDERABLES Fin al Result [facility] [address] [place] [address], [place] [phone] * (ABNORMAL) Complete blood count (10/18/2024 9:03 AM EDT) [facility] WBC 5.9 4.8 - 10.8 K/mcL LAB HEMETOLOGY METHOD 10/18/2024 1:35 PM EDT [facility] RBC 3.40(L) 4.50 - 5.50 M/mcL LAB HEMETOLOGY METHOD 10/18/2024 1:35 PM EDT [facility] Hemoglobin 10.1(L) 13.5 - 17.5 g/dL LAB HEMETOLOGY METHOD 10/18/2024 1:35 PM [facility] Hematocrit 32.3(L) 42.0 - 54.0 % LAB HEMETOLOGY METHOD 10/18/2024 1:35 PM [facility] MCV 96.4 79.0 - 98.0 FL LAB HEMETOLOGY METHOD [facility] MCH 30.1 27.0 - 32.0 pcg LAB HEMETOLOGY METHOD 10/18/2024 1:35 PM [facility] MCHC 31.3(L) 32.0 - 37.0 g/dL LAB HEMETOLOGY METHOD 10/18/2024 1:35 PM [facility] RDW 18.2(H) 11.0 - 15.0 % LAB HEMETOLOGY METHOD 10/18/2024 1:35 PM EDT [facility] Platelets 275 130 - 400 K/mcL LAB HEMETOLOGY METHOD 10/18/2024 1:35 PM [facility] MPV 13.2(H) 7.0 - 11.0 FL LAB HEMETOLOGY METHOD 10/18[facility]24 [facility] NRBC 0.0 <1.0 % LAB HEMETOLOGY METHOD 10/18/2024 1:35 PM EDT [facility] NRBC Absolute 0.00 <0.10 K/mcL LAB HEMETOLOGY METHOD 10/18/2024 1:35 PM EDT [facility] Blood Venous blood specimen / Unknown Venipuncture / Unknown 10/18/2024 9:03 AM EDT 10/18/2024 11:02 AM EDT us Preeti Lujan MD LAB BLOOD ORDERABLES Fin al Result [facility] [address] [place] [address], documented in this encounter Visit Diagnoses Diagnosis Sepsis, unspecified organism (CMS/HCC V24, CMS/HCC V28) documented in this encounter Care Teams Area Development Consultant Relationship Specialty Start Date End Date Tram Álvarez MD 2 [facility] , [address] [place] [address] Physician Associ D/B/A: [facility] [place], [place] PCP - General Internal Medicine 03/30/18 documented as of this encounter
--- OUTSIDE RECORDS SUMMARY | 2025-04-01 14:45 | XMS_ITS | Encounter Summary ---
Author Organization [facility] Address [address] [place] [address] Care Team Providers Care Beamer Helper Name Role Phone Tram Álvarez MD Primary Care Provider [phone] Encounter Details Date Type Department Care Team (Late st Contact Info) Description 08/05/2024 Lab Requisition [facility] - Main Lab [address] [place] [address] Prince eL MD 38 [facility] [address] [place], [address] Type 2 diabetes mellitus without [...] mg/dL LAB CHEMISTRY METHOD 08/06/2024 9:31 AM [facility] Blood Venous blood specimen / Unknown Venipuncture / Unknown 08/06/2024 6:49 AM EST 08/06/2024 8:31 AM EST us Prince Le MD LAB BLOOD ORDERABLES Final Resul t [facility] [address] [place] [address], * Comprehensive metabolic panel (08/06/2024 6:49 AM EST) Sodium 140 133 - 145 mmol/L LAB CHEMISTRY METHOD 08/06/2024 9:31 AM [facility] Potassium 5.0 3.5 - 5.5 mmol/L LAB CHEMISTRY METHOD 08/06/2024 9:31 AM [facility] Chloride 106 96 - 110 mmol/L LAB CHEMISTRY METHOD 08/06/2024 9:31 AM [facility] CO2 30 21 - 32 mmol/L LAB CHEMISTRY METHOD 08/06/2024 9:31 AM [facility] Anion Gap 4 3 - 11 LAB CHEMISTRY METHOD 08/06/2024 9:31 AM [facility] Glucose 99 70 - 100 mg/dL LAB CHEMISTRY METHOD 08/06/2024 9:31 AM [facility] BUN 25 5 - 25 mg/dL LAB CHEMISTRY METHOD 08/06/2024 9:31 AM [facility] Creatinine 1.10 0.70 - 1.30 mg/dL LAB CHEMISTRY METHOD 08/06/2024 9:31 AM [facility] eGFR 73 >=60 mL/min/1. 73m2 LAB CHEMISTRY METHOD 08/06/2024 9:31 AM [facility] Comment:Calculation based on the Chronic Kidney Disease Epidemiology Collaboration (CKD-EPI) equation refit without adjustment for race. BUN/Creatinine Ratio 22.7 LAB CHEMISTRY METHOD 08/06/2024 9:31 AM [facility] Calcium 9.5 8.5 - 10.5 mg/dL LAB CHEMISTRY METHOD 08/06/2024 9:31 AM [facility] AST (SGOT) 33 10 - 42 unit/L LAB CHEMISTRY METHOD 08/06/2024 9:31 AM [facility] ALT (SGPT) 26 10 - 60 unit/L LAB CHEMISTRY METHOD 08/06/2024 9:31 AM [facility] Alkaline Phosphatase 51 42 - 121 unit/L LAB CHEMISTRY METHOD 08/06/2024 9:31 AM [facility] Total Protein 6.6 6.0 - 8.0 g/dL LAB CHEMISTRY METHOD 08/06/2024 9:31 AM [facility] Albumin 3.4 3.2 - 5.0 g/dL LAB CHEMISTRY METHOD 08/06/2024 9:31 AM [facility] Total Bilirubin 0.4 0.0 - 1.4 mg/dL LAB CHEMISTRY METHOD 08/06/2024 9:31 AM [facility] Blood Venous blood specimen / Unknown Venipuncture / Unknown 08/06/2024 6:49 AM EST 08/06/2024 8:31 AM EST us Prince Le MD LAB BLOOD ORDERABLES Final Resul t [facility] [address] [place] [address], * (ABNORMAL) Complete blood count (08/06/2024 6:49 AM EST) WBC 8.2 4.8 - 10.8 K/mcL LAB HEMETOLOGY METHOD 08/06/2024 9:12 AM EST [facility] RBC 4.50 4.50 - 5.50 M/mcL LAB HEMETOLOGY METHOD 08/06/2024 9:12 AM [facility] Hemoglobin 12.2(L) 13.5 - 17.5 g/dL LAB HEMETOLOGY METHOD 08/06/2024 9:12 AM [facility] Hematocrit 37.4(L) 42.0 - 54.0 % LAB HEMETOLOGY METHOD 08/06/2024 9:12 AM [facility] MCV 84.0 79.0 - 98.0 FL LAB HEMETOLOGY METHOD 08/06/2024 9:12 AM [facility] MCH 27.4 27.0 - 32.0 pcg LAB HEMETOLOGY METHOD 08/06/2024 9:12 AM [facility] MCHC 32.6 32.0 - 37.0 g/dL LAB HEMETOLOGY METHOD 08/06/2024 9:12 AM [facility] RDW 20.3(H) 11.0 - 15.0 % LAB HEMETOLOGY METHOD 08/06/2024 9:12 AM [facility] Platelets 351 130 - 400 K/mcL LAB HEMETOLOGY METHOD 08/06/2024 9:12 AM [facility] MPV 12.2(H) 7.0 - 11.0 FL LAB HEMETOLOGY METHOD 08/06/2024 9:12 AM [facility] NRBC 0.0 <1.0 % LAB HEMETOLOGY METHOD 08/06/2024 9:12 AM [facility] NRBC Absolute 0.00 <0.10 K/mcL LAB HEMETOLOGY METHOD 08/06/2024 9:12 AM [facility] Blood Venous blood specimen / Unknown Venipuncture / Unknown 08/06/2024 6:49 AM EST 08/06/2024 8:31 AM EST us Prince Le MD LAB BLOOD ORDERABLES Final Resul t [facility] ([facility]) [facility] [address] [place] [address], documented in this encounter Visit Diagnoses Diagnosis Type 2 diabetes mellitus without complications (CMS/HCC V24, CMS/HCC V28) documented in this encounter Care Teams Beamer Helper Relationship Specialty Start Date End Date Tram Álvarez MD [address] [facility] , [address] [facility] Physician Associ D/B/A: [facility] [place] PCP - General Internal Medicine 03/30/18 documented as of this encounter
--- OUTSIDE RECORDS SUMMARY | 2025-04-01 14:45 | XMS_ITS | Encounter Summary ---
Author Organization [facility] Address [address] [place] [address] Care Team Providers Care Engineering Associate Name Role Phone Tram Álvarez MD Primary Care Provider Encounter Details Date Type Department Care Team (Late st Contact Info) Description 10/14/2024 Lab Requisition [facility] - Main Lab 299 [facility] [place] [address] Prince Le MD 38 [facility] [address] [place], [address] Type 2 diabetes mellitus without complications [...] V28) documented in this encounter Care Teams Engineering Associate Relationship Specialty Start Date End Date Tram Álvarez MD [address] [place] [address] , [address] [facility] Physician Associ D/B/A: [facility] [place], [place] PCP - General Internal Medicine 03/30/18 documented as of this encounter
--- OUTSIDE RECORDS SUMMARY | 2025-04-01 14:45 | XMS_ITS | Encounter Summary ---
Author Organization [facility] Address [address] [place] [address] Care Team Providers Care Sap Payroll Consultant Name Role Phone Tram Álvarez MD Primary Care Provider [phone] Encounter Details Date Type Department Care Team (Late st Contact Info) Description 09/02/2024 Lab Requisition [facility] - Main Lab [address] [place] [address] Prince Le MD 38 [facility] [address] [place], [address] Type 2 diabetes mellitus without [...] mg/dL LAB CHEMISTRY METHOD 09/03/2024 10:05 AM [facility] Blood Venous blood specimen / Unknown Venipuncture / Unknown 09/03/2024 6:35 AM EST 09/03/2024 7:52 AM EST us Prince Le MD LAB BLOOD ORDERABLES Final Resul t [facility] [address] [place] [address], * (ABNORMAL) Comprehensive metabolic panel (09/03/2024 6:35 AM EST) Sodium 138 133 - 145 mmol/L LAB CHEMISTRY METHOD 09/03/2024 9:59 AM [facility] Potassium 4.2 3.5 - 5.5 mmol/L LAB CHEMISTRY METHOD 09/03/2024 9:59 AM [facility] Chloride 105 96 - 110 mmol/L LAB CHEMISTRY METHOD 09/03/2024 9:59 AM [facility] CO2 28 21 - 32 mmol/L LAB CHEMISTRY METHOD 09/03/2024 9:59 AM [facility] Anion Gap 5 3 - 11 LAB CHEMISTRY METHOD 09/03/2024 9:59 AM [facility] Glucose 120(H) 70 - 100 mg/dL LAB CHEMISTRY METHOD 09/03/2024 9:59 AM [facility] BUN 23 5 - 25 mg/dL LAB CHEMISTRY METHOD 09/03/2024 9:59 AM [facility] Creatinine 0.88 0.70 - 1.30 mg/dL LAB CHEMISTRY METHOD 09/03/2024 9:59 AM [facility] eGFR 94 >=60 mL/min/1. 73m2 LAB CHEMISTRY METHOD 09/03/2024 9:59 AM [facility] Comment:Calculation based on the Chronic Kidney Disease Epidemiology Collaboration (CKD-EPI) equation refit without adjustment for race. BUN/Creatinine Ratio 26.1 LAB CHEMISTRY METHOD 09/03/2024 9:59 AM [facility] Calcium 9.1 8.5 - 10.5 mg/dL LAB CHEMISTRY METHOD 09/03/2024 9:59 AM [facility] AST (SGOT) 23 10 - 42 unit/L LAB CHEMISTRY METHOD 09/03/2024 9:59 AM [facility] ALT (SGPT) 29 10 - 60 unit/L LAB CHEMISTRY METHOD 09/03/2024 9:59 AM [facility] Alkaline Phosphatase 59 42 - 121 unit/L LAB CHEMISTRY METHOD 09/03/2024 9:59 AM [facility] Total Protein 5.9(L) 6.0 - 8.0 g/dL LAB CHEMISTRY METHOD 09/03/2024 9:59 AM [facility] Albumin 3.1(L) 3.2 - 5.0 g/dL LAB CHEMISTRY METHOD 09/03/2024 9:59 AM [facility] Total Bilirubin 0.4 0.0 - 1.4 mg/dL LAB CHEMISTRY METHOD 09/03/2024 9:59 AM [facility] Blood Venous blood specimen / Unknown Venipuncture / Unknown 09/03/2024 6:35 AM EST 09/03/2024 7:52 AM EST us Prince Le MD LAB BLOOD ORDERABLES Final Resul t [facility] [address] [place] [address], * (ABNORMAL) Complete blood count (09/03/2024 6:35 AM EST) WBC 9.2 4.8 - 10.8 K/mcL LAB HEMETOLOGY METHOD 09/03/2024 8:43 AM [facility] RBC 3.70(L) 4.50 - 5.50 M/mcL LAB HEMETOLOGY METHOD 09/03/2024 8:43 AM [facility] Hemoglobin 10.8(L) 13.5 - 17.5 g/dL LAB HEMETOLOGY METHOD 09/03/2024 8:43 AM [facility] Hematocrit 34.4(L) 42.0 - 54.0 % LAB HEMETOLOGY METHOD 09/03/2024 8:43 AM [facility] MCV 93.5 79.0 - 98.0 FL LAB HEMETOLOGY METHOD 09/03/2024 8:43 AM [facility] MCH 29.3 27.0 - 32.0 pcg LAB HEMETOLOGY METHOD 09/03/2024 8:43 AM [facility] MCHC 31.4(L) 32.0 - 37.0 g/dL LAB HEMETOLOGY METHOD 09/03/2024 8:43 AM [facility] RDW 20.0(H) 11.0 - 15.0 % LAB HEMETOLOGY METHOD 09/03/2024 8:43 AM [facility] Platelets 333 130 - 400 K/mcL LAB HEMETOLOGY METHOD 09/03/2024 8:43 AM [facility] MPV 12.3(H) 7.0 - 11.0 FL LAB HEMETOLOGY METHOD 09/03/2024 8:43 AM [facility] NRBC 0.0 <1.0 % LAB HEMETOLOGY METHOD 09/03/2024 8:43 AM [facility] NRBC Absolute 0.00 <0.10 K/mcL LAB HEMETOLOGY METHOD 09/03/2024 8:43 AM [facility] Blood Venous blood specimen / Unknown Venipuncture / Unknown 09/03/2024 6:35 AM EST 09/03/2024 7:52 AM EST us Prince Le MD LAB BLOOD ORDERABLES Final Resul t [facility] ([facility]) [facility] [address] [place] [address], documented in this encounter Visit Diagnoses Diagnosis Type 2 diabetes mellitus without complications (CMS/HCC V24, CMS/HCC V28) documented in this encounter Care Teams Sap Payroll Consultant Relationship Specialty Start Date End Date Tram Álvarez MD 2 [facility] , [address] [facility] Physician Associ D/B/A: [facility] JAS Duque PCP - General Internal Medicine 03/30/18 documented as of this encounter
--- OUTSIDE RECORDS SUMMARY | 2025-04-01 14:45 | XMS_ITS | Encounter Summary ---
Author Organization [facility] Address [address] [place] [address] Care Team Providers Care Librarian Special Collections Name Role Phone Tram Álvarez MD Primary Care Provider [phone] Encounter Details Date Type Department Care Team (Late st Contact Info) Description 02/24/2025 Lab Requisition [facility] - Main Lab [address] [facility] [place] [address] Preeti Lujan MD [address] [id number] Essential (primary) hypertension Social History Tobacco Use [...] LAB CHEMISTRY METHOD 02/24/2025 9:39 AM EDT [facility] Potassium 6.0(H) 3.5 - 5.5 mmol/L LAB CHEMISTRY METHOD 02/24/2025 9:39 AM EDT [facility] Chloride 110 96 - 110 mmol/L LAB CHEMISTRY METHOD 02/24/2025 9:39 AM [facility] CO2 27 21 - 32 mmol/L LAB CHEMISTRY METHOD 02/24/2025 9:39 AM [facility] Anion Gap 4 3 - 11 LAB CHEMISTRY METHOD 02/24/2025 9:39 AM [facility] Glucose 117(H) 70 - 100 mg/dL LAB CHEMISTRY METHOD 02/24/2025 9:39 AM [facility] BUN 27(H) 5 - 25 mg/dL LAB CHEMISTRY METHOD 02/24/2025 9:39 AM [facility] Creatinine 0.84 0.70 - 1.30 mg/dL LAB CHEMISTRY METHOD 02/24/2025 9:39 AM [facility] LAB eGFR 94 >=60 mL/min/1. 73m2 LAB CHEMISTRY METHOD 02/24/2025 9:39 AM [facility] Comment:Calculation based on the Chronic Kidney Disease Epidemiology Collaboration (CKD-EPI) equation refit without adjustment for race. BUN/Creatinine Ratio 32.1 LAB CHEMISTRY METHOD 02/24/2025 9:39 AM [facility] Calcium 9.4 8.5 - 10.5 mg/dL LAB CHEMISTRY METHOD 02/24/2025 9:39 AM [facility] Blood Venous blood specimen / Unknown Venipuncture / Unknown 02/24/2025 6:34 AM EDT 02/24/2025 8:31 AM EDT us Preeti Lujan MD LAB BLOOD ORDERABLES Fin al Result [facility] [address] [place] [address], * (ABNORMAL) Complete blood count (02/24/2025 6:34 [...] pcg LAB HEMETOLOGY METHOD 02/24/2025 9:35 AM [facility] MCHC 29.8(L) 32.0 - 37.0 g/dL LAB HEMETOLOGY METHOD 02/24/2025 9:35 AM [facility] RDW 17.6(H) 11.0 - 15.0 % LAB HEMETOLOGY METHOD 02/24/2025 9:35 AM [facility] Platelets 287 130 - 400 K/mcL LAB HEMETOLOGY METHOD 02/24/2025 9:35 AM [facility] MPV 12.9(H) 7.0 - 11.0 FL LAB HEMETOLOGY METHOD 02/24/2025 9:35 AM [facility] NRBC 0.0 <1.0 % LAB HEMETOLOGY METHOD 02/24/2025 9:35 AM [facility] NRBC Absolute 0.00 <0.10 K/mcL LAB HEMETOLOGY METHOD 02/24/2025 9:35 AM EDT [facility] Blood Venous blood specimen / Unknown Venipuncture / Unknown 02/24/2025 6:34 AM EDT 02/24/2025 8:31 AM EDT us Preeti Lujan MD LAB BLOOD ORDERABLES Fin al Result [facility] [address] [place] [address], documented in this encounter Visit Diagnoses Diagnosis Essential (primary) hypertension Unspecified essential hypertension documented in this encounter Care Teams Librarian Special Collections Relationship Specialty Start Date End Date Tram Álvarez MD 2 [facility] , [address] Physician Associ D/B/A: [facility] [place], [place] PCP - General Internal Medicine 03/30/18 documented as of this encounter
--- OUTSIDE RECORDS SUMMARY | 2025-04-01 14:45 | XMS_ITS | Clinical Summary ---
Author Organization [employer] [facility] Address [address] [facility] 7[address] [place] [address] Care Team Providers Care Sprinkler Inspector Name Role Phone Unavailable Primary Care Provider [...] to complete this topic Insurance [facility] SKILLED NURSING OPTIONS (O D-SNP) JIM DIAZ [id number]
--- OUTSIDE RECORDS SUMMARY | 2025-04-01 14:45 | XMS_ITS | Encounter Summary ---
Author Organization [facility] Address [address] [place] [address] Care Team Providers Care Stave Grader Name Role Phone Tram Álvarez MD Primary Care Provider [phone] Encounter Details Date Type Department Care Team (Late st Contact Info) Description 07/29/2024 Lab Requisition [facility] - Main Lab [address] [place] [address] Prince Le MD 38 [facility] [address] [place], [address] Type 2 diabetes mellitus without [...] mg/dL LAB CHEMISTRY METHOD 07/30/2024 10:25 AM [facility] LAB Blood Venous blood specimen / Unknown Venipuncture / Unknown 07/30/2024 7:30 AM EST 07/30/2024 9:39 AM EST us Prince Le MD LAB BLOOD ORDERABLES Final Resul t [facility] [address] [place] [address], * (ABNORMAL) Comprehensive metabolic panel (07/30/2024 7:30 AM EST) Sodium 140 133 - 145 mmol/L LAB CHEMISTRY METHOD 07/30/2024 10:25 AM [facility] Potassium 5.1 3.5 - 5.5 mmol/L LAB CHEMISTRY METHOD 07/30/2024 10:25 AM [facility] Chloride 107 96 - 110 mmol/L LAB CHEMISTRY METHOD 07/30/2024 10:25 AM [facility] CO2 31 21 - 32 mmol/L LAB CHEMISTRY METHOD 07/30/2024 10:25 AM [facility] Anion Gap 2(L) 3 - 11 LAB CHEMISTRY METHOD 07/30/2024 10:25 AM [facility] Glucose 76 70 - 100 mg/dL LAB CHEMISTRY METHOD 07/30/2024 10:25 AM [facility] BUN 28(H) 5 - 25 mg/dL LAB CHEMISTRY METHOD 07/30/2024 10:25 AM [facility] Creatinine 1.13 0.70 - 1.30 mg/dL LAB CHEMISTRY METHOD 07/30/2024 10:25 AM [facility] LAB eGFR 71 >=60 mL/min/1. 73m2 LAB CHEMISTRY METHOD 07/30/2024 10:25 AM [facility] LAB Comment:Calculation based on the Chronic Kidney Disease Epidemiology Collaboration (CKD-EPI) equation refit without adjustment for race. BUN/Creatinine Ratio 24.8 LAB CHEMISTRY METHOD 07/30/2024 10:25 AM [facility] Calcium 9.5 8.5 - 10.5 mg/dL LAB CHEMISTRY METHOD 07/30/2024 10:25 AM [facility] AST (SGOT) 28 10 - 42 unit/L LAB CHEMISTRY METHOD 07/30/2024 10:25 AM [facility] ALT (SGPT) 24 10 - 60 unit/L LAB CHEMISTRY METHOD 07/30/2024 10:25 AM [facility] Alkaline Phosphatase 62 42 - 121 unit/L LAB CHEMISTRY METHOD 07/30/2024 10:25 AM [facility] Total Protein 6.4 6.0 - 8.0 g/dL LAB CHEMISTRY METHOD 07/30/2024 10:25 AM [facility] Albumin 3.2 3.2 - 5.0 g/dL LAB CHEMISTRY METHOD 07/30/2024 10:25 AM [facility] Total Bilirubin 0.4 0.0 - 1.4 mg/dL LAB CHEMISTRY METHOD 07/30/2024 10:25 AM [facility] Blood Venous blood specimen / Unknown Venipuncture / Unknown 07/30/2024 7:30 AM EST 07/30/2024 9:39 AM EST us Prince Le MD LAB BLOOD ORDERABLES Final Resul t [facility] [address] [place] [address], * (ABNORMAL) Complete blood count (07/30/2024 7:30 AM EST) WBC 8.9 4.8 - 10.8 K/mcL LAB HEMETOLOGY METHOD 07/30/2024 9:55 AM EST [facility] RBC 4.30(L) 4.50 - 5.50 M/mcL LAB HEMETOLOGY METHOD 07/30/2024 9:55 AM [facility] Hemoglobin 12.1(L) 13.5 - 17.5 g/dL LAB HEMETOLOGY METHOD 07/30/2024 9:55 AM [facility] Hematocrit 36.5(L) 42.0 - 54.0 % LAB HEMETOLOGY METHOD 07/30/2024 9:55 AM [facility] MCV 84.3 79.0 - 98.0 FL LAB HEMETOLOGY METHOD 07/30/2024 9:55 AM [facility] MCH 27.9 27.0 - 32.0 pcg LAB HEMETOLOGY METHOD 07/30/2024 9:55 AM [facility] MCHC 33.2 32.0 - 37.0 g/dL LAB HEMETOLOGY METHOD 07/30/2024 9:55 AM [facility] RDW 19.4(H) 11.0 - 15.0 % LAB HEMETOLOGY METHOD 07/30/2024 9:55 AM [facility] Platelets 315 130 - 400 K/mcL LAB HEMETOLOGY METHOD 07/30/2024 9:55 AM [facility] MPV 12.7(H) 7.0 - 11.0 FL LAB HEMETOLOGY METHOD 07/30/2024 9:55 AM [facility] NRBC 0.0 <1.0 % LAB HEMETOLOGY METHOD 07/30/2024 9:55 AM [facility] NRBC Absolute 0.00 <0.10 K/mcL LAB HEMETOLOGY METHOD 07/30/2024 9:55 AM [facility] Blood Venous blood specimen / Unknown Venipuncture / Unknown 07/30/2024 7:30 AM EST 07/30/2024 9:39 AM EST us Prince Le MD LAB BLOOD ORDERABLES Final Resul t [facility] [address] [place] [address], documented in this encounter Visit Diagnoses Diagnosis Type 2 diabetes mellitus without complications (CMS/HCC V24, CMS/HCC V28) documented in this encounter Care Teams Stave Grader Relationship Specialty Start Date End Date Tram Álvarez MD 2 [facility] , [address] [facility] Physician Associ D/B/A: [facility] JAS Duque PCP - General Internal Medicine 03/30/18 documented as of this encounter
--- OUTSIDE RECORDS SUMMARY | 2025-04-01 14:45 | XMS_ITS | Encounter Summary ---
Author Organization [facility] Address [address] [place] [address] Care Team Providers Care Jumpbasting Facing Baster Name Role Phone Tram Álvarez MD Primary Care Provider [phone] Encounter Details Date Type Department Care Team (Late st Contact Info) Description 10/07/2024 Lab Requisition [facility] - Main Lab [address] [facility] [place] [address] Prince Le MD 38 [facility] 204 [place], [address] Type 2 diabetes mellitus without complications [...] V28) documented in this encounter Care Teams Jumpbasting Facing Baster Relationship Specialty Start Date End Date Tram Álvarez MD [address] [place] [address] , [address] [facility] Physician Associ D/B/A: [facility] [place], [place] PCP - General Internal Medicine 03/30/18 documented as of this encounter
--- OUTSIDE RECORDS SUMMARY | 2025-04-01 14:45 | XMS_ITS | Encounter Summary ---
Author Organization [facility] Address [address] [place] [address] Care Team Providers Care Utility Aircrewman Name Role Phone Tram Álvarez MD Primary Care Provider [phone] Encounter Details Date Type Department Care Team (Late st Contact Info) Description 09/09/2024 Lab Requisition [facility] - Main Lab 299 [facility] [place] [address] Prince Le MD 38 [facility] 204 [place], [address] Type 2 diabetes mellitus [...] V28) documented in this encounter Care Teams Utility Aircrewman Relationship Specialty Start Date End Date rTam Álvarez MD [address] [place] [address] , [address] [facility] Physician Associ D/B/A: [facility] [place], [place] PCP - General Internal Medicine 03/30/18 documented as of this encounter
--- OUTSIDE RECORDS SUMMARY | 2025-04-01 14:46 | XMS_ITS | Encounter Summary ---
Author Organization [facility] Address [address] [place] [address] Care Team Providers Care Plastic Tile Setter Name Role Phone Tram Álvarez MD Primary Care Provider [phone] Encounter Details Date Type Department Care Team (Late st Contact Info) Description 05/14/2024 Lab Requisition [facility] - Main Lab [address] [place] [address] Prince Le MD 38 [facility] 204 [place], [address] Essential (primary) hypertension Social History Tobacco [...] LAB CHEMISTRY METHOD 05/17/2024 10:43 AM EST [facility] Potassium 4.5 3.5 - 5.5 mmol/L LAB CHEMISTRY METHOD 05/17/2024 10:43 AM EST [facility] Chloride 110 96 [...] Resul t [facility] [address] [place] [address], * (ABNORMAL) Complete blood count (05/17/2024 6:41 [...] LAB BLOOD ORDERABLES Final Resul t [facility] [address] [place] [address], [place] [phone] documented in this encounter Visit Diagnoses Diagnosis Essential (primary) hypertension Unspecified essential hypertension documented in this encounter Care Teams Plastic Tile Setter Relationship Specialty Start Date End Date Tram Álvarez MD 2 [facility] , [address] [facility] Physician Associ D/B/A: [facility] [place], [place] PCP - General Internal Medicine 03/30/18 documented as of this encounter
--- OUTSIDE RECORDS SUMMARY | 2025-04-01 14:46 | XMS_ITS | Encounter Summary ---
Author Organization [facility] Address [address] [place] [address] Care Team Providers Care Housekeeping Cleaner Name Role Phone Tram Álvarez MD Primary Care Provider [phone] Encounter Details Date Type Department Care Team (Late st Contact Info) Description 09/30/2024 Lab Requisition [facility] - Main Lab [address] [place] [address] Prince Le MD 38 [facility] [address] [place], [address] Type 2 diabetes mellitus without complications [...] mg/dL LAB CHEMISTRY METHOD 10/01/2024 11:57 AM [facility] Blood Venous blood specimen / Unknown Venipuncture / Unknown 10/01/2024 8:01 AM EDT 10/01/2024 10:24 AM EDT us Prince Le MD LAB BLOOD ORDERABLES Final Resul t [facility] [address] [place] [address], [place] [phone] * (ABNORMAL) Comprehensive metabolic panel (10/01/2024 8:01 AM EDT) Sodium 134 133 - 145 mmol/L LAB CHEMISTRY METHOD 10/01/2024 12:02 PM [facility] Potassium 4.7 3.5 - 5.5 mmol/L LAB CHEMISTRY METHOD 10/01/2024 12:02 PM [facility] Chloride 101 96 - 110 mmol/L LAB CHEMISTRY METHOD 10/01/2024 12:02 PM [facility] CO2 27 21 - 32 mmol/L LAB CHEMISTRY METHOD 10/01/2024 12:02 PM [facility] Anion Gap 6 3 - 11 LAB CHEMISTRY METHOD 10/01/2024 12:02 PM [facility] Glucose 79 70 - 100 mg/dL LAB CHEMISTRY METHOD 10/01/2024 12:02 PM [facility] BUN 40(H) 5 - 25 mg/dL LAB CHEMISTRY METHOD 10/01/2024 12:02 PM [facility] Creatinine 1.55(H) 0.70 - 1.30 mg/dL LAB CHEMISTRY METHOD 10/01/2024 12:02 PM [facility] eGFR 48(L) >=60 mL/min/1. 73m2 LAB CHEMISTRY METHOD 10/01/2024 12:02 PM [facility] Comment:Calculation based on the Chronic Kidney Disease Epidemiology Collaboration (CKD-EPI) equation refit without adjustment for race. BUN/Creatinine Ratio 25.8 LAB CHEMISTRY METHOD 10/01/2024 12:02 PM [facility] Calcium 8.8 8.5 - 10.5 mg/dL LAB CHEMISTRY METHOD 10/01/2024 12:02 PM [facility] AST (SGOT) 63(H) 10 - 42 unit/L LAB CHEMISTRY METHOD 10/01/2024 12:02 PM [facility] ALT (SGPT) 30 10 - 60 unit/L LAB CHEMISTRY METHOD 10/01/2024 12:02 PM [facility] Alkaline Phosphatase 40(L) 42 - 121 unit/L LAB CHEMISTRY METHOD 10/01/2024 12:02 PM [facility] Total Protein 6.0 6.0 - 8.0 g/dL LAB CHEMISTRY METHOD 10/01/2024 12:02 PM [facility] Albumin 2.9(L) 3.2 - 5.0 g/dL LAB CHEMISTRY METHOD 10/01/2024 12:02 PM [facility] Total Bilirubin 0.4 0.0 - 1.4 mg/dL LAB CHEMISTRY METHOD 10/01/2024 12:02 PM [facility] Blood Venous blood specimen / Unknown Venipuncture / Unknown 10/01/2024 8:01 AM EDT 10/01/2024 10:24 AM EDT us Prince Le MD LAB BLOOD ORDERABLES Final Resul t [facility] [address] [place] [address], * (ABNORMAL) Complete blood count (10/01/2024 8:01 AM EDT) WBC 7.3 4.8 - 10.8 K/mcL LAB HEMETOLOGY METHOD 10/01/2024 11:11 AM [facility] RBC 4.00(L) 4.50 - 5.50 M/mcL LAB HEMETOLOGY METHOD 10/01/2024 11:11 AM [facility] Hemoglobin 11.8(L) 13.5 - 17.5 g/dL LAB HEMETOLOGY METHOD 10/01/2024 11:11 AM [facility] Hematocrit 37.0(L) 42.0 - 54.0 % LAB HEMETOLOGY METHOD 10/01/2024 11:11 AM [facility] MCV 93.7 79.0 - 98.0 FL LAB HEMETOLOGY METHOD 10/01/2024 11:11 AM [facility] MCH 29.9 27.0 - 32.0 pcg LAB HEMETOLOGY METHOD 10/01/2024 11:11 AM [facility] MCHC 31.9(L) 32.0 - 37.0 g/dL LAB HEMETOLOGY METHOD 10/01/2024 11:11 AM [facility] RDW 16.4(H) 11.0 - 15.0 % LAB HEMETOLOGY METHOD 10/01/2024 11:11 AM [facility] Platelets 416(H) 130 - 400 K/mcL LAB HEMETOLOGY METHOD 10/01/2024 11:11 AM [facility] MPV 11.3(H) 7.0 - 11.0 FL LAB HEMETOLOGY METHOD 10/01/2024 11:11 AM [facility] NRBC 0.0 <1.0 % LAB HEMETOLOGY METHOD 10/01/2024 11:11 AM [facility] NRBC Absolute 0.00 <0.10 K/mcL LAB HEMETOLOGY METHOD 10/01/2024 11:11 AM [facility] Blood Venous blood specimen / Unknown Venipuncture / Unknown 10/01/2024 8:01 AM EDT 10/01/2024 10:24 AM EDT us Prince Le MD LAB BLOOD ORDERABLES [facility] [address] [place] [address], documented in this encounter Visit Diagnoses Diagnosis Type 2 diabetes mellitus without complications (CMS/HCC V24, CMS/HCC V28) documented in this encounter Care Teams Housekeeping Cleaner Relationship Specialty Start Date End Date Tram Álvarez MD 2 [facility] , [address] Physician Associ D/B/A: [facility] [place], [place] PCP - General Internal Medicine 03/30/18 documented as of this encounter
--- OUTSIDE RECORDS SUMMARY | 2025-04-01 14:46 | XMS_ITS | Encounter Summary ---
Author Organization [facility] Address [address] [place] [address] Care Team Providers Care Salon Stylist Name Role Phone Tram Álvarez MD Primary Care Provider [phone] Encounter Details Date Type Department Care Team (Late st Contact Info) Description 06/18/2024 Lab Requisition [facility] - Main Lab [address] [place] [address] Prince Le MD 38 [facility] [address] [place], [address] Nausea with vomiting, unspecified; Chronic kidney [...] LAB CHEMISTRY METHOD 06/18/2024 11:17 AM EST [facility] Potassium 4.6 3.5 - 5.5 mmol/L [...] [facility] Comment:Calculation based on the [...] Resul t [facility] [address] [place] [address], [place] [phone] * (ABNORMAL) Complete blood count (06/18/2024 6:44 AM EST) WBC 8.4 4.8 - 10.8 K/[facility] LAB HEMETOLOGY METHOD 06/18/2024 10:46 AM [facility] RBC 5.10 4.50 - 5.50 M/[facility] LAB HEMETOLOGY METHOD 06/18/2024 10:46 AM [...] HOSPITAL LAB Platelets 248 130 - 400 K/[facility] LAB HEMETOLOGY METHOD 06/18/2024 10:46 AM [facility] MPV 12.7(H) 7.0 - 11.0 FL LAB HEMETOLOGY METHOD 06/18/2024 10:46 AM [facility] NRBC 0.0 <1.0 % LAB HEMETOLOGY METHOD 06/18/2024 10:46 AM [facility] NRBC Absolute 0.00 <0.10 K/[facility] LAB HEMETOLOGY METHOD 06/18/2024 10:46 AM [facility] Blood Venous blood specimen / Unknown Venipuncture / Unknown 06/18/2024 6:44 AM EST 06/18/2024 9:17 AM EST us Prince Le MD LAB BLOOD ORDERABLES Final Resul t [facility] [address] [place] [address], documented in this encounter Visit Diagnoses Diagnosis Nausea with vomiting, unspecified Chronic kidney disease, unspecified documented in this encounter Care Teams Salon Stylist Relationship Specialty Start Date End Date Tram Álvarez MD 2 [facility] , [address] Physician Associ D/B/A: [facility] JAS Duque PCP - General Internal Medicine 03/30/18 documented as of this encounter
--- OUTSIDE RECORDS SUMMARY | 2025-04-01 14:46 | XMS_ITS | Encounter Summary ---
Author Organization [facility] Address [address] [place] [address] Care Team Providers Care Programmer Engineering And Scientific Name Role Phone Tram Álvarez MD Primary Care Provider [phone] Encounter Details Date Type Department Care Team (Late st Contact Info) Description 11/18/2024 Lab Requisition [facility] - Main Lab [address] [facility] [place] [address] Preeti Lujan MD [address] [phone] Chronic kidney disease, stage 3 unspecified (CMS/HCC [...] LAB CHEMISTRY METHOD 11/18/2024 10:12 AM EDT [facility] ([facility]) [facility] Potassium 4.6 3.5 - 5.5 mmol/L LAB CHEMISTRY METHOD 11/18/2024 10:12 AM [facility] Chloride 112(H) 96 - 110 mmol/L LAB CHEMISTRY METHOD 11/18/2024 10:12 AM [facility] CO2 25 21 - 32 mmol/L LAB CHEMISTRY METHOD 11/18/2024 10:12 AM [facility] Anion Gap 6 3 - 11 LAB CHEMISTRY METHOD 11/18/2024 10:12 AM [facility] Glucose 105(H) 70 - 100 mg/dL LAB CHEMISTRY METHOD 11/18/2024 10:12 AM [facility] BUN 26(H) 5 - 25 mg/dL LAB CHEMISTRY METHOD 11/18/2024 10:12 AM [facility] Creatinine 0.63(L) 0.70 - 1.30 mg/dL LAB CHEMISTRY METHOD 11/18/2024 10:12 AM [facility] eGFR 103 >=60 mL/min/1. 73m2 LAB CHEMISTRY METHOD 11/18/2024 10:12 AM [facility] Comment:Calculation based on the Chronic Kidney Disease Epidemiology Collaboration (CKD-EPI) equation refit without adjustment for race. BUN/Creatinine Ratio 41.3 LAB CHEMISTRY METHOD 11/18/2024 10:12 AM [facility] Calcium 8.8 8.5 - 10.5 mg/dL LAB CHEMISTRY METHOD 11/18/2024 10:12 AM [facility] Blood Venous blood specimen / Unknown Venipuncture / Unknown 11/18/2024 6:05 AM EDT 11/18/2024 9:23 AM EDT us Preeti Lujan MD LAB BLOOD ORDERABLES Fin al Result [facility] [address] [place] [address], documented in this encounter Visit Diagnoses Diagnosis Chronic kidney disease, stage 3 unspecified (CMS/[facility] V24, [facility] V28) Spinal stenosis, lumbar region without neurogenic claudication documented in this encounter Care Teams Programmer Engineering And Scientific Relationship Specialty Start Date End Date Tram Álvarez MD 2 [facility] , [address] [place] [address] Physician Associ D/B/A: [facility] JAS Duque PCP - General Internal Medicine 03/30/18 documented as of this encounter
--- OUTSIDE RECORDS SUMMARY | 2025-04-01 14:46 | XMS_ITS | Encounter Summary ---
Author Organization [facility] Address [address] [place] [address] Care Team Providers Care Medical Corps Officer Name Role Phone Tram Álvarez MD Primary Care Provider [phone] Encounter Details Date Type Department Care Team (Late st Contact Info) Description 11/11/2024 Lab Requisition [facility] - Main Lab [address] [place] [address] Shonda Brenner MD [address] [place] [id number] Unspecified abdominal pain Social History Tobacco Use [...] reflex microscopic (11/11/2024 12:00 AM EDT) Specific [place] Urine 1.014 1.003 - 1.030 LAB URINALYSIS - AUTOMATED METHOD 11/11/2024 11:33 AM EDT [facility] pH, Urine 7.0 5.0 - 8.0 pH LAB URINALYSIS - AUTOMATED METHOD 11/11/2024 11:33 AM [facility] Leukocytes, Urine Large(A) Negative LAB URINALYSIS - AUTOMATED METHOD 11/11/2024 11:33 AM [facility] Nitrite, Urine Negative Negative LAB URINALYSIS - AUTOMATED METHOD 11/11/2024 11:33 AM [facility] Protein, Urine Trace <=Trace mg/dL LAB URINALYSIS - AUTOMATED METHOD 11/11/2024 11:33 AM [facility] Glucose, Urine Negative Negative mg/dL LAB URINALYSIS - AUTOMATED METHOD 11/11/2024 11:33 AM [facility] Ketones, Urine Negative Negative mg/dL LAB URINALYSIS - AUTOMATED METHOD 11/11/2024 11:33 AM [facility] Urobilinogen, Urine 0.2 0.2 - 1.0 mg/dL LAB URINALYSIS - AUTOMATED METHOD 11/11/2024 11:33 AM [facility] Bilirubin, Urine Negative Negative LAB URINALYSIS - AUTOMATED METHOD 11/11/2024 11:33 AM [facility] Blood, Urine Negative Negative LAB URINALYSIS - AUTOMATED METHOD 11/11/2024 11:33 AM [facility] RBC, Urine 3.0 0 - 4 /HPF LAB URINALYSIS - AUTOMATED METHOD 11/11/2024 11:33 AM [facility] WBC, Urine 57.5(H) 0 - 4 /HPF LAB URINALYSIS - AUTOMATED METHOD 11/11/2024 11:33 AM [facility] Squamous Epithelial, Urine >100(H) 0 - 60 /LPF LAB URINALYSIS - AUTOMATED METHOD 11/11/2024 11:33 AM [facility] Bacteria, Urine Negative Negative /HPF LAB URINALYSIS - AUTOMATED METHOD 11/11/2024 11:33 AM EDT [facility] Hyaline Casts, Urine 2.0 0 - 3 /LPF LAB URINALYSIS - AUTOMATED METHOD 11/11/2024 11:33 AM EDT [facility] Urine Urine specimen obtained by clean catch procedure / Unknown Non-blood Collection / Unknown 11/11/2024 11/11/2024 9:44 AM EDT us Shonda Brenner MD LAB URINE ORDERABLES Final Resu lt Performing Organization Address [facility]/ZIP Co de Phone Number [facility] [address] [place] [address], [place] [phone] * Culture urine (11/11/2024 12:00 AM EDT) Culture, Urine <10,000 CFU/mL gram negative bacilli, insignificant count, no further workup 11/12/2024 8:43 AM EDT [facility] Urine Urine specimen obtained by clean catch procedure / Unknown Non-blood Collection / Unknown 11/11/2024 11/11/2024 9:44 AM EDT us Shonda Brenner MD LAB MICROBIOLOGY - GENERAL ORDE RABLES Final Result Performing Organization Address [facility]/ZIP Co de Phone Number [facility] [address] [place] [address], [place] [phone] documented in this encounter Visit Diagnoses Diagnosis Unspecified abdominal pain documented in this encounter Care Teams Medical Corps Officer Relationship Specialty Start Date End Date Tram Álvarez MD 2 [facility] [address] Physician Associ D/B/A: [facility] JAS Duque PCP - General Internal Medicine 03/30/18 documented as of this encounter
--- OUTSIDE RECORDS SUMMARY | 2025-04-01 14:46 | XMS_ITS | Encounter Summary ---
Author Organization [facility] Address [address] [place] [address] Care Team Providers Care Veterans Rehabilitation Counselor Name Role Phone Tram Álvarez MD Primary Care Provider [phone] Encounter Details Date Type Department Care Team (Late st Contact Info) Description 09/23/2024 Lab Requisition [facility] - Main Lab [address] [place] [address] Prince Le MD 38 [facility] [address] [place], [address] Type 2 diabetes mellitus without complications [...] LAB CHEMISTRY METHOD 09/24/2024 12:40 PM EDT [facility] Blood Venous blood specimen / Unknown Venipuncture / Unknown 09/24/2024 5:45 AM EDT 09/24/2024 9:53 AM EDT us Prince Le MD LAB BLOOD ORDERABLES Final Resul t [facility] [address] [place] [address], [place] [phone] * (ABNORMAL) Comprehensive metabolic panel (09/24/2024 5:45 AM EDT) Sodium 140 133 - 145 mmol/L LAB CHEMISTRY METHOD 09/24/2024 12:42 PM [facility] Potassium 4.8 3.5 - 5.5 mmol/L LAB CHEMISTRY METHOD 09/24/2024 12:42 PM [facility] Chloride 107 96 - 110 mmol/L LAB CHEMISTRY METHOD 09/24/2024 12:42 PM [facility] CO2 27 21 - 32 mmol/L LAB CHEMISTRY METHOD 09/24/2024 12:42 PM [facility] Anion Gap 6 3 - 11 LAB CHEMISTRY METHOD 09/24/2024 12:42 PM [facility] Glucose 81 70 - 100 mg/dL LAB CHEMISTRY METHOD 09/24/2024 12:42 PM [facility] BUN 18 5 - 25 mg/dL LAB CHEMISTRY METHOD 09/24/2024 12:42 PM [facility] Creatinine 0.80 0.70 - 1.30 mg/dL LAB CHEMISTRY METHOD 09/24/2024 12:42 PM [facility] eGFR 96 >=60 mL/min/1. 73m2 LAB CHEMISTRY METHOD 09/24/2024 12:42 PM [facility] Comment:Calculation based on the Chronic Kidney Disease Epidemiology Collaboration (CKD-EPI) equation refit without adjustment for race. BUN/Creatinine Ratio 22.5 LAB CHEMISTRY METHOD 09/24/2024 12:42 PM T [facility] Calcium 8.9 8.5 - 10.5 mg/dL LAB CHEMISTRY METHOD 09/24/2024 12:42 PM [facility] AST (SGOT) 15 10 - 42 unit/L LAB CHEMISTRY METHOD 09/24/2024 12:42 PM [facility] ALT (SGPT) 16 10 - 60 unit/L LAB CHEMISTRY METHOD 09/24/2024 12:42 PM [facility] Alkaline Phosphatase 51 42 - 121 unit/L LAB CHEMISTRY METHOD 09/24/2024 12:42 PM [facility] Total Protein 6.1 6.0 - 8.0 g/dL LAB CHEMISTRY METHOD 09/24/2024 12:42 PM [facility] Albumin 2.7(L) 3.2 - 5.0 g/dL LAB CHEMISTRY METHOD 09/24/2024 12:42 PM [facility] Total Bilirubin 0.4 0.0 - 1.4 mg/dL LAB CHEMISTRY METHOD 09/24/2024 12:42 PM [facility] Blood Venous blood specimen / Unknown Venipuncture / Unknown 09/24/2024 5:45 AM EDT 09/24/2024 9:53 AM EDT us Prince Le MD LAB BLOOD ORDERABLES Final Resul t [facility] [address] [place] [address], * (ABNORMAL) Complete blood count (09/24/2024 5:45 AM EDT) WBC 7.3 4.8 - 10.8 K/mcL LAB HEMETOLOGY METHOD 09/24/2024 10:05 AM [facility] RBC 3.70(L) 4.50 - 5.50 M/mcL LAB HEMETOLOGY METHOD 09/24/2024 10:05 AM [facility] Hemoglobin 11.0(L) 13.5 - 17.5 g/dL LAB HEMETOLOGY METHOD 09/24/2024 10:05 AM [facility] Hematocrit 35.4(L) 42.0 - 54.0 % LAB HEMETOLOGY METHOD 09/24/2024 10:05 AM [facility] MCV 96.2 79.0 - 98.0 FL LAB HEMETOLOGY METHOD 09/24/2024 10:05 AM [facility] MCH 29.9 27.0 - 32.0 pcg LAB HEMETOLOGY METHOD 09/24/2024 10:05 AM [facility] MCHC 31.1(L) 32.0 - 37.0 g/dL LAB HEMETOLOGY METHOD 09/24/2024 10:05 AM [facility] RDW 16.4(H) 11.0 - 15.0 % LAB HEMETOLOGY METHOD 09/24/2024 10:05 AM [facility] Platelets 480(H) 130 - 400 K/mcL LAB HEMETOLOGY METHOD 09/24/2024 10:05 AM [facility] MPV 12.1(H) 7.0 - 11.0 FL LAB HEMETOLOGY METHOD 09/24/2024 10:05 AM [facility] NRBC 0.0 <1.0 % LAB HEMETOLOGY METHOD 09/24/2024 10:05 AM [facility] NRBC Absolute 0.00 <0.10 K/mcL LAB HEMETOLOGY METHOD 09/24/2024 10:05 AM [facility] Blood Venous blood specimen / Unknown Venipuncture / Unknown 09/24/2024 5:45 AM EDT 09/24/2024 9:53 AM EDT us Prince Le MD LAB BLOOD ORDERABLES [facility] [address] [place] [address], documented in this encounter Visit Diagnoses Diagnosis Type 2 diabetes mellitus without complications (CMS/HCC V24, CMS/HCC V28) documented in this encounter Care Teams Veterans Rehabilitation Counselor Relationship Specialty Start Date End Date Tram Álvarez MD 2 [facility] , [address] Physician Associ D/B/A: [facility] JAS Duque PCP - General Internal Medicine 03/30/18 documented as of this encounter
--- OUTSIDE RECORDS SUMMARY | 2025-04-01 14:46 | XMS_ITS | Encounter Summary ---
Author Organization [facility] Address [address] [place] [address] Care Team Providers Care Special Forces Communications Sergeant Name Role Phone Tram Álvarez MD Primary Care Provider [phone] Encounter Details Date Type Department Care Team (Late st Contact Info) Description 11/05/2024 Lab Requisition [facility] - Main Lab [address] [facility] [place] [address] Preeti Lujan MD [address] [phone] Pneumonia, unspecified organism Social History Tobacco Use [...] LAB CHEMISTRY METHOD 11/05/2024 11:23 AM EDT [facility] Potassium 3.8 3.5 - 5.5 mmol/L LAB CHEMISTRY METHOD 11/05/2024 11:23 AM [facility] Chloride 112(H) 96 - 110 mmol/L LAB CHEMISTRY METHOD 11/05/2024 11:23 AM [facility] CO2 19(L) 21 - 32 mmol/L LAB CHEMISTRY METHOD 11/05/2024 11:23 AM [facility] Anion Gap 11 3 - 11 LAB CHEMISTRY METHOD 11/05/2024 11:23 AM [facility] Glucose 121(H) 70 - 100 mg/dL LAB CHEMISTRY METHOD 11/05/2024 11:23 AM [facility] BUN 22 5 - 25 mg/dL LAB CHEMISTRY METHOD 11/05/2024 11:23 AM [facility] Creatinine 0.58(L) 0.70 - 1.30 mg/dL LAB CHEMISTRY METHOD 11/05/2024 11:23 AM [facility] eGFR 106 >=60 mL/min/1. 73m2 LAB CHEMISTRY METHOD 11/05/2024 11:23 AM [facility] Comment:Calculation based on the Chronic Kidney Disease Epidemiology Collaboration (CKD-EPI) equation refit without adjustment for race. BUN/Creatinine Ratio 37.9 LAB CHEMISTRY METHOD 11/05/2024 11:23 AM [facility] Calcium 9.3 8.5 - 10.5 mg/dL LAB CHEMISTRY METHOD 11/05/2024 11:23 AM [facility] Blood Venous blood specimen / Unknown Venipuncture / Unknown 11/05/2024 8:07 AM EDT 11/05/2024 9:58 AM EDT us Preeti Lujan MD LAB BLOOD ORDERABLES Fin al Result [facility] [address] [place] [address], documented in this encounter Visit Diagnoses Diagnosis Pneumonia, unspecified organism documented in this encounter Care Teams Special Forces Communications Sergeant Relationship Specialty Start Date End Date Tram Álvarez MD 2 [facility] , [address] Physician Associ D/B/A: [facility] JAS Duque PCP - General Internal Medicine 03/30/18 documented as of this encounter
--- OUTSIDE RECORDS SUMMARY | 2025-04-01 14:46 | XMS_ITS | Encounter Summary ---
Author Organization [facility] Address [address] [place] [address] Care Team Providers Care Manager Compensation Name Role Phone Tram Álvarez MD Primary Care Provider [phone] Encounter Details Date Type Department Care Team (Late st Contact Info) Description 07/16/2024 Lab Requisition [facility] - Main Lab [address] [place] [address] Prince Le MD 38 [facility] [address] [place], [address] Type 2 diabetes mellitus without complications [...] mg/dL LAB CHEMISTRY METHOD 07/16/2024 12:50 PM [facility] Blood Venous blood specimen / Unknown Venipuncture / Unknown 07/16/2024 8:00 AM EST 07/16/2024 11:21 AM EST us Prince Le MD LAB BLOOD ORDERABLES Final Resul t [facility] [address] [place] [address], [place] [phone] * (ABNORMAL) Comprehensive metabolic panel (07/16/2024 8:00 AM EST) Sodium 137 133 - 145 mmol/L LAB CHEMISTRY METHOD 07/16/2024 1:13 PM [facility] Potassium 5.1 3.5 - 5.5 mmol/L LAB CHEMISTRY METHOD 07/16/2024 1:13 PM [facility] Chloride 103 96 - 110 mmol/L LAB CHEMISTRY METHOD 07/16/2024 1:13 PM [facility] CO2 27 21 - 32 mmol/L LAB CHEMISTRY METHOD 07/16/2024 1:13 PM [facility] Anion Gap 7 3 - 11 LAB CHEMISTRY METHOD 07/16/2024 1:13 PM [facility] Glucose 40(L) 70 - 100 mg/dL LAB CHEMISTRY METHOD 07/16/2024 1:13 PM [facility] BUN 35(H) 5 - 25 mg/dL LAB CHEMISTRY METHOD 07/16/2024 1:13 PM [facility] Creatinine 1.27 0.70 - 1.30 mg/dL LAB CHEMISTRY METHOD 07/16/2024 1:13 PM [facility] eGFR 62 >=60 mL/min/1. 73m2 LAB CHEMISTRY METHOD 07/16/2024 1:13 PM [facility] Comment:Calculation based on the Chronic Kidney Disease Epidemiology Collaboration (CKD-EPI) equation refit without adjustment for race. BUN/Creatinine Ratio 27.6 LAB CHEMISTRY METHOD 07/16/2024 1:13 PM [facility] Calcium 9.0 8.5 - 10.5 mg/dL LAB CHEMISTRY METHOD 07/16/2024 1:13 PM [facility] AST (SGOT) 18 10 - 42 unit/L LAB CHEMISTRY METHOD 07/16/2024 1:13 PM [facility] ALT (SGPT) 19 10 - 60 unit/L LAB CHEMISTRY METHOD 07/16/2024 1:13 PM [facility] Alkaline Phosphatase 62 42 - 121 unit/L LAB CHEMISTRY METHOD 07/16/2024 1:13 PM [facility] Total Protein 6.7 6.0 - 8.0 g/dL LAB CHEMISTRY METHOD 07/16/2024 1:13 PM [facility] Albumin 3.5 3.2 - 5.0 g/dL LAB CHEMISTRY METHOD 07/16/2024 1:13 PM [facility] Total Bilirubin 0.4 0.0 - 1.4 mg/dL LAB CHEMISTRY METHOD 07/16/2024 1:13 PM [facility] Blood Venous blood specimen / Unknown Venipuncture / Unknown 07/16/2024 8:00 AM EST 07/16/2024 11:21 AM EST us Prince Le MD LAB BLOOD ORDERABLES Final Resul t [facility] [address] [place] [address], * (ABNORMAL) Complete blood count (07/16/2024 8:00 AM EST) WBC 10.9(H) 4.8 - 10.8 K/mcL LAB HEMETOLOGY METHOD 07/16/2024 11:53 AM EST [facility] RBC 4.90 4.50 - 5.50 M/mcL LAB HEMETOLOGY METHOD 07/16/2024 11:53 AM [facility] Hemoglobin 13.4(L) 13.5 - 17.5 g/dL LAB HEMETOLOGY METHOD 07/16/2024 11:53 AM [facility] Hematocrit 41.6(L) 42.0 - 54.0 % LAB HEMETOLOGY METHOD 07/16/2024 11:53 AM [facility] MCV 85.1 79.0 - 98.0 FL LAB HEMETOLOGY METHOD 07/16/2024 11:53 AM [facility] MCH 27.4 27.0 - 32.0 pcg LAB HEMETOLOGY METHOD 07/16/2024 11:53 AM [facility] MCHC 32.2 32.0 - 37.0 g/dL LAB HEMETOLOGY METHOD 07/16/2024 11:53 AM [facility] RDW 18.3(H) 11.0 - 15.0 % LAB HEMETOLOGY METHOD 07/16/2024 11:53 AM [facility] Platelets 413(H) 130 - 400 K/mcL LAB HEMETOLOGY METHOD 07/16/2024 11:53 AM [facility] MPV 12.4(H) 7.0 - 11.0 FL LAB HEMETOLOGY METHOD 07/16/2024 11:53 AM [facility] NRBC 0.0 <1.0 % LAB HEMETOLOGY METHOD 07/16/2024 11:53 AM [facility] NRBC Absolute 0.00 <0.10 K/mcL LAB HEMETOLOGY METHOD 07/16/2024 11:53 AM [facility] Blood Venous blood specimen / Unknown Venipuncture / Unknown 07/16/2024 8:00 AM EST 07/16/2024 11:21 AM EST us Prince Le MD LAB BLOOD ORDERABLES Final Resul t [facility] [address] [place] [address], documented in this encounter Visit Diagnoses Diagnosis Type 2 diabetes mellitus without complications (CMS/HCC V24, CMS/HCC V28) documented in this encounter Care Teams Manager Compensation Relationship Specialty Start Date End Date Tram Álvarez MD 2 [facility] , [address] [facility] D/B/A: [facility] JAS Duque PCP - General Internal Medicine 03/30/18 documented as of this encounter
--- OUTSIDE RECORDS SUMMARY | 2025-04-01 14:46 | XMS_ITS | Encounter Summary ---
Author Organization [facility] Address [address] [place] [address] Care Team Providers Care Staff Counsel Name Role Phone Tram Álvarez MD Primary Care Provider [phone] Encounter Details Date Type Department Care Team (Late st Contact Info) Description 10/22/2024 Lab Requisition [facility] - Main Lab [address] [place] [address] Preeti Lujan MD [address] [id number] Type 2 diabetes mellitus without complications (CMS/HCC [...] 2 diabetes mellitus without complications (CMS/HCC V24, CMS/[facility] V28) documented in this encounter Results * Hemoglobin A1c (10/22/2024 6:43 AM EDT) Hemoglobin A1C 5.5 <6.5 % LAB CHEMISTRY METHOD 10/22/2024 2:03 PM EDT [facility] Mean Bld Glu Estim. 111 mg/dL LAB CHEMISTRY METHOD 10/22/2024 2:03 PM EDT [facility] Blood Venous blood specimen / Unknown Venipuncture / Unknown 10/22/2024 6:43 AM EDT 10/22/2024 9:05 AM EDT us Preeti Lujan MD LAB BLOOD ORDERABLES Fin al Result [facility] ([facility] [address] [place] [address], documented in this encounter Visit Diagnoses Diagnosis Type 2 diabetes mellitus without complications (CMS/HCC V24, CMS/HCC V28) documented in this encounter Care Teams Staff Counsel Relationship Specialty Start Date End Date Tram Álvarez MD 2 [facility] , [address] Physician Associ D/B/A: [facility] JAS Duque PCP - General Internal Medicine 03/30/18 documented as of this encounter
--- OUTSIDE RECORDS SUMMARY | 2025-04-01 14:46 | XMS_ITS | Encounter Summary ---
Author Organization [facility] Address [address] [place] [address] Care Team Providers Care Wire Straightener Name Role Phone Tram Álvarez MD Primary Care Provider [phone] Encounter Details Date Type Department Care Team (Late st Contact Info) Description 08/19/2024 Lab Requisition [facility] - Main Lab [address] [place] [address] Prince Le MD 38 [facility] [address] [place], [address] Type 2 diabetes mellitus without complications [...] mg/dL LAB CHEMISTRY METHOD 08/20/2024 11:12 AM [facility] Blood Venous blood specimen / Unknown Venipuncture / Unknown 08/20/2024 7:39 AM EST 08/20/2024 10:36 AM EST us Prince Le MD LAB BLOOD ORDERABLES Final Resul t [facility] [address] [place] [address], * (ABNORMAL) Comprehensive metabolic panel (08/20/2024 7:39 AM EST) Sodium 139 133 - 145 mmol/L LAB CHEMISTRY METHOD 08/20/2024 11:11 AM [facility] Potassium 4.5 3.5 - 5.5 mmol/L LAB CHEMISTRY METHOD 08/20/2024 11:11 AM [facility] Chloride 109 96 - 110 mmol/L LAB CHEMISTRY METHOD 08/20/2024 11:11 AM [facility] CO2 26 21 - 32 mmol/L LAB CHEMISTRY METHOD 08/20/2024 11:11 AM [facility] Anion Gap 4 3 - 11 LAB CHEMISTRY METHOD 08/20/2024 11:11 AM [facility] Glucose 120(H) 70 - 100 mg/dL LAB CHEMISTRY METHOD 08/20/2024 11:11 AM [facility] BUN 22 5 - 25 mg/dL LAB CHEMISTRY METHOD 08/20/2024 11:11 AM [facility] Creatinine 0.78 0.70 - 1.30 mg/dL LAB CHEMISTRY METHOD 08/20/2024 11:11 AM [facility] eGFR 97 >=60 mL/min/1. 73m2 LAB CHEMISTRY METHOD 08/20/2024 11:11 AM [facility] Comment:Calculation based on the Chronic Kidney Disease Epidemiology Collaboration (CKD-EPI) equation refit without adjustment for race. BUN/Creatinine Ratio 28.2 LAB CHEMISTRY METHOD 08/20/2024 11:11 AM [facility] Calcium 9.3 8.5 - 10.5 mg/dL LAB CHEMISTRY METHOD 08/20/2024 11:11 AM [facility] AST (SGOT) 35 10 - 42 unit/L LAB CHEMISTRY METHOD 08/20/2024 11:11 AM [facility] ALT (SGPT) 30 10 - 60 unit/L LAB CHEMISTRY METHOD 08/20/2024 11:11 AM [facility] Alkaline Phosphatase 39(L) 42 - 121 unit/L LAB CHEMISTRY METHOD 08/20/2024 11:11 AM [facility] Total Protein 6.6 6.0 - 8.0 g/dL LAB CHEMISTRY METHOD 08/20/2024 11:11 AM [facility] Albumin 3.5 3.2 - 5.0 g/dL LAB CHEMISTRY METHOD 08/20/2024 11:11 AM [facility] Total Bilirubin 0.8 0.0 - 1.4 mg/dL LAB CHEMISTRY METHOD 08/20/2024 11:11 AM [facility] Blood Venous blood specimen / Unknown Venipuncture / Unknown 08/20/2024 7:39 AM EST 08/20/2024 10:36 AM EST us Prince Le MD LAB BLOOD ORDERABLES Final Resul t [facility] [address] [place] [address], * (ABNORMAL) Complete blood count (08/20/2024 7:39 AM EST) WBC 13.2(H) 4.8 - 10.8 K/mcL LAB HEMETOLOGY METHOD 08/20/2024 10:52 AM [facility] RBC 3.90(L) 4.50 - 5.50 M/mcL LAB HEMETOLOGY METHOD 08/20/2024 10:52 AM [facility] Hemoglobin 11.0(L) 13.5 - 17.5 g/dL LAB HEMETOLOGY METHOD 08/20/2024 10:52 AM [facility] Hematocrit 33.1(L) 42.0 - 54.0 % LAB HEMETOLOGY METHOD 08/20/2024 10:52 AM [facility] MCV 85.3 79.0 - 98.0 FL LAB HEMETOLOGY METHOD 08/20/2024 10:52 AM [facility] MCH 28.4 27.0 - 32.0 pcg LAB HEMETOLOGY METHOD 08/20/2024 10:52 AM [facility] MCHC 33.2 32.0 - 37.0 g/dL LAB HEMETOLOGY METHOD 08/20/2024 10:52 AM [facility] RDW 20.9(H) 11.0 - 15.0 % LAB HEMETOLOGY METHOD 08/20/2024 10:52 AM [facility] Platelets 329 130 - 400 K/mcL LAB HEMETOLOGY METHOD 08/20/2024 10:52 AM [facility] MPV 13.2(H) 7.0 - 11.0 FL LAB HEMETOLOGY METHOD 08/20/2024 10:52 AM [facility] NRBC 0.0 <1.0 % LAB HEMETOLOGY METHOD 08/20/2024 10:52 AM [facility] NRBC Absolute 0.00 <0.10 K/mcL LAB HEMETOLOGY METHOD 08/20/2024 10:52 AM [facility] Blood Venous blood specimen / Unknown Venipuncture / Unknown 08/20/2024 7:39 AM EST 08/20/2024 10:36 AM EST us Prince Le MD LAB BLOOD ORDERABLES Final Resul t [facility] [address] [place] [address], documented in this encounter Visit Diagnoses Diagnosis Type 2 diabetes mellitus without complications (CMS/HCC V24, CMS/HCC V28) documented in this encounter Care Teams Wire Straightener Relationship Specialty Start Date End Date Tram Álvarez MD 2 [facility] , [address] [facility] Physician Associ D/B/A: [facility] JAS Duque PCP - General Internal Medicine 03/30/18 documented as of this encounter
--- OUTSIDE RECORDS SUMMARY | 2025-04-01 14:46 | XMS_ITS | Clinical Summary ---
Author Organization [facility] Facility Address [address] [place] [address] Care Team Providers Care Home Visitor Home Base Head Start Name Role Phone Tram Royal MD Primary Care Provider [phone] Allergies Active Allergy Reactions Criticality Noted Date [...] % [facility] 04/28/2020 us [facility] [id number] LICITED RESULTS Final Result [facility]NMA from Last 3 Months or Most Recently Relevant to Health Maintenance Insurance [id number] [place] [id number] [employer] [place] [id number] [place] [id number] [place] Care Teams Home Visitor Home Base Head Start Relationship Specialty Start Date End Date Tram Royal MD [address] [place] PCP - General 07/17/20
--- OUTSIDE RECORDS SUMMARY | 2025-04-01 14:46 | XMS_ITS | Encounter Summary ---
Author Organization [facility] Address [address] [place] [address] Care Team Providers Care Bottle Cleaner Name Role Phone Tram Álavrez MD Primary Care Provider [phone] Encounter Details Date Type Department Care Team (Late st Contact Info) Description 10/21/2024 Lab Requisition [facility] - Main Lab [address] [facility] [place] [address] Prince Le MD 38 [facility] [address] [place], [address] Type 2 diabetes mellitus without complications [...] V28) documented in this encounter Care Teams Bottle Cleaner Relationship Specialty Start Date End Date Tram Álvarez MD [address] [place] [address] , [address] [facility]ician [facility] D/B/A: [facility] [place], [place] PCP - General Internal Medicine 03/30/18 documented as of this encounter
--- OUTSIDE RECORDS SUMMARY | 2025-04-01 14:46 | XMS_ITS | Data Portability ---
Author Organization [facility], Main Office Address [address], [address] [place] [address] Care Team Providers Care Svp Digital Ad Sales Name Role Phone LANG HERRERA Primary Care Provider [facility] OTHER Assessment No [...] Address Organization Details Recorded Time Diabetes mellitus 69544991 Active 2019 YANG SWEET [address], [address], [place], [address], [facility] 0 09:29:33 Depressive disorder 38112012 Active 2019 YANG SWEET [address] , [address], [place], [address], [facility] 0 09:29:39 Essential hypertensio n 17155360 Active 2019 YANG SWEET [address] , [address], [place], [address], [facility] 0 09:29:47 Hypercholes terolemia 87064898 Active 2019 YANG SWEET [address] , [address], [place], [address], [facility] 0 09:29:57 Vitamin D deficiency 32558176 Active 2019 YANG SWEET [address], [place], [address], [facility] 0 09:30:10 Insomnia 097166963 Active 2019 YANG SWEET [address], [place], [address], [facility] 0 09:30:19 Spinal stenosis of lumbar region 43052794 Active 2019 YANG SWEET [address], [place], [address], [facility] 0 09:30:43 Total knee replacement Active 2022 Sonja Gibbs NP [address], [address], [place], [address], [facility] 3 09:12:50 Acute pain of joint of knee 5391265914521 04 Active 2022 Sonja Gibbs NP [address], [address], [place], [address], [facility] 3 09:14:53 Constipatio n 39536992 Active 2022 Sonja Gibbs NP [address], [address], [place], [address], [facility] 3 10:15:39 Osteoarthri tis of knee 124760919 Active 2022 Judie Camacho MD [address], [address], [place], [address], [facility] 3 20:37:14 Chronic kidney disease stage 1 336473264 Active 2022 Judie Camacho MD [address], [address], [place], [address], [facility] 3 20:53:16 Chronic diastolic heart failure 340083695 Active 2023 Judie Camacho MD [address], [address], [place], [address], [facility] 4 21:28:14 Chronic kidney disease stage 2 739705411 Active 2023 Judie Camacho MD [address] [place] [address], [facility] [address], [place], [address], [facility] 4 21:28:20 Problem Notes None recorded. Procedures Surgical History Date Name Laterality Status Provider Name and Address Organization Details Recorded Time laminotomy completed NURIA FERNANDEZYANG VARGAS [address] [place] [address], [facility] [address], [place], [address], [facility] 01/06/2020 09:27:06 Imaging Results None recorded. Procedure Notes None recorded. Medical Equipment None Reported. Allergies Allergen ID Allergen Name Allergen Category Reaction Reaction Severity Criticality Documentation Date Start Date Code Code System Note Provider Name and Address Organization Details Recorded Time 27990 Product containin g penicilli n (product) medicatio n rash Not available Not available 01/06/2020 29689 8001 SNOMED NURIA FERNANDEZYANG VARGAS [address] [place] [address], [facility] [address], [place], [address], [facility] 0 09:20:02 07999 ioversol medicatio n Not available Not available Not available 12/06/20242021 75329 RxNorm Other react ion(s ): hives no meds given Judie Camacho MD [address] [place] [address], [facility] [address], [place], [address], [facility] 5 13:19:35 Medications Name Sig Start Date Stop Date [...] lable Vitals Date Recorded Body height Systolic And Diastolic Provider Name and Address Organization Details Last Updated DateTime 09/11/2024 198.12 cm 108/71 mm[Hg] Prince Le MD [address], [address], [place], [address], [facility] 09/11/2024 11:45:45 Date Recorded Body height Body weight Heart rate Respiratory rate Body temperature Oxygen saturation Oxygen saturation in Arterial blood by Pulse oximetry Systolic And Diastolic Provider Name and Address Organization Details Last Updated DateTime 5 198.12 cm 36090.3 g 76 /min 18 /min 98.6 [degF] 97 % 97 % 102/68 mm[Hg] Sonja Gibbs NP [address], [address], [place], [address], [facility] 5 09:33:55 Date Recorded Body height Body mass index (BMI) Body weight Heart rate Respiratory rate Body temperature Oxygen saturation Oxygen saturation in Arterial blood by Pulse oximetry Systolic And Diastolic Provider Name and Address Organization Details Last Updated DateTime 5 198.12 cm 19.8 kg/m2 72905.3 g 90 /min 18 /min 97.6 [degF] 97 % 97 % 102/70 mm[Hg] Sonja Gibbs NP [address], [address], [place], [address], [facility] 5 09:48:14 Date Recorded Body height Body mass index (BMI) Body weight Heart rate Respiratory rate Body temperature Oxygen saturation Oxygen saturation in Arterial blood by Pulse oximetry Systolic And Diastolic Provider Name and Address Organization Details Last Updated DateTime 5 198.12 cm 19.1 kg/m2 60432.7 4 g 76 /min 18 /min 97.6 [degF] 98 % 98 % 90/64 mm[Hg] Sonja Gibbs NP [address], [address], [place], [address], [facility] 5 16:46:26 Date Recorded Heart rate Respiratory rate Body temperature Oxygen saturation Oxygen saturation in Arterial blood by Pulse oximetry Systolic And Diastolic Provider Name and Address Organization Details Last Updated DateTime 5 76 /min 18 /min 97.6 [degF] 98 % 98 % 89/60 mm[Hg] Sonja Gibbs, DIAMOND [address], [place], [address], [facility] 09:51:01 Date Recorded Body height Provider Name an d Address Organization Details Last Updated DateTime 10/20/2024 198.12 cm Sonja Gibbs, N P [address], [address], [place], [address], [facility] 10/20/2024 09:22:14 Social History Question Answer Notes LastModified by Organizat ion Details LastModified Time Tobacco Smoking Status Former Smoker Sonja Gibbs, DIAMOND [address], [place], [address], [facility] 02/14/2023 10:11:47 Do You Have An Advance Directive? Yes FULL CODE No Dialysis And Okay To Use Nutrition-us e Hydration Information not available 02/14/2023 How Much Tobacco Do You Chew? None [id number] Information not available 05/02/2020 What Is Your Code Status? Full Code Information not available 02/14/2023 Where Do You Live? Apartment Elevator Information not available 02/19/2023 Legal Guardian? No Informati on not available 02/14/2023 Do You Have A Medical Power Of Evaporator Helper? Yes [id number] Information not available 05/02/2020 What Was The Date Of Your Most Recent Tobacco Screening? 02/18/2023 Information not available 02/19/2023 Do You Have An Out Of Hospital DNR? No Information not available 02/19/2023 Have You Ever Been Counseled For Unhealthy Alcohol Use? No Information not available 02/19/2023 What Is Your Relationship Status? Information not available 02/19/2023 Has Tobacco Cessation Counseling Been Provided? No N/a As Pt. No Longer Smokes Information not available 02/19/2023 How Many Years Have You Smoked Tobacco? 40 [id number] Information not available 05/02/2020 Do You Have Any Dietary Restrictions? No Information not available 02/14/2023 Sex: Male Functional Status Question Answer Note LastModified by Organizat ion Details LastModified Time Do you use any illicit or recreational drugs? No Information not available 02/14/2023 Do you or have you ever used any other forms of tobacco or nicotine? No Information not available 02/14/2023 What is your level of alcohol consumption? Occasional Information not available 02/14/2023 Do you or have you ever used smokeless tobacco? Never used smokeless tobacco [id number] Information not available 05/02/2020 Do you or have you ever used e-cigarettes or vape? Never used electronic cigarettes [id number] Information not available 05/02/2020 Mental Status None recorded. Family History Relationship [...] adjuvanted, quadrivalent, PF 2 completed Nafisa Patel [facility] 08/19/2023 09:57:53 Influenza, adjuvanted, quadrivalent, PF 3 [facility] 11:45:01 pneumococcal polysaccharide PPV23 8 completed Sade Little [facility] 05/07/2024 15:50:52 influenza, unspecified formulation 4 completed Sade Little [facility] 05/07/2024 15:51:08 SARS-COV-2 (COVID-19) vaccine, UNSPECIFIED 1 completed Sade Little [facility] 05/07/2024 15:51:23 SARS-COV-2 (COVID-19) vaccine, UNSPECIFIED 1 completed Sade Little [facility] 05/07/2024 15:51:30 SARS-COV-2 (COVID-19) vaccine, UNSPECIFIED 3 completed Sade wilkinson [place] [facility] 05/07/2024 15:51:38 Past Encounters Encounter ID Performer Location Encounter Start Date Encounter Closed Date Diagnosis/Indication Diagnosis SNOMED-CT Code Diagnosis ICD10 Code Diagnosis IMO Codes Diagnosis Note [id number] YANG SWEET [address] [address] 01/06/2020 09:16:35 01/10/2020 16:25:01 Spinal stenosis of lumbar region 09093453 M48.062 s/p L4-5 decompress ion 01/03/20 by [...] 10 days-appt already set up Diabetes mellitus 723068 09 E11.9 trulicity 1.5 mg q week on sundays lantus 45 units qd SSI januvia 100 mg qd monitor A1c monitor for s/s of hypo/hyper glycemia Essential hypertension 92572687 I10 amlodipine 5 mg qd benazepril 20 mg q hs and 40 mg q am HCTZ 50 mg qd monitor b/p and labs Hypercholesterolemia 136 90491 E78.2 atorvastat in 20 mg qd fenofibrat e 145 mg qd monitor labs Insomnia 583056412 G47.0 9 was on trazodone 50 mg [...] pt monitor mood Vitamin D deficiency 347 29799 E56.8 vitamin D3 1000 iu qd monitor levels [id number] Estefany Curtis MD [facility] [address] [place] [address] 01/07/2020 07:31:48 01/10/2020 16:31:47 Depressive disorder 04610627 F32.89 sertraline 50 mg dailywill monitor Diabetes mellitus 422735 09 E11.9 Humalog per sliding scaleJanuv ia 100 mg dailyLantu s 45 mg at hsmetformi n 1000 mg bidTrulici ty 1.5 mg weeklywill monitor Essential hypertension 05351804 I10 amlodipine 5 mg dailybenaz epril 40 mg dailyHCTZ 50 mg dailywill monitor Hypercholesterolemia 136 71650 E78.00 atorvastat in 20 mg dailyfenof ibrate 145 mg dailywill monitor Spinal mg nosis of lumbar region 94761660 M48.061 s/p recent decompress ion L4-5 cyclobenza tutu 10 mg tidnortrip tyline 25 mg bid diclofenac 75 mg bidgabapen tin 300 mg bid and 600 mg at hsoxycodon e 5-10 mg q4h prnfu neurosurge ryPT/OT [id number] PALAK BECKER NP [address] [address] 01/11/2020 08:12:58 01/14/2020 14:03:39 Depressive disorder 77880849 F32.9 sertraline 50 mg daily will monitor Spinal mg nosis of lumbar region 59787506 M48.061 cyclobenza tutu 10 mg tid nortriptyl ine 25 mg bid diclofenac 75 mg bid gabapentin 300 mg bid and 600 mg at hs oxycodone 5-10 mg q4h prn fu neurosurge ry PT/OT [id number] PALAK BECKER NP [address] [address] 01/14/2020 07:57:00 01/18/2020 09:07:39 Depressive disorder 13330011 F32.9 sertraline 50 mg daily will monitor Diabetes mellitus 538827 09 E11.9 monitor poc glucose Humalog per sliding scaleJanuv ia 100 mg daily Lantus 45 mg at hs metformin 1000 mg bid Trulicity 1.5 mg weekly will monitor Essential hypertension 66821782 I10 amlodipine 5 mg dailybenaz epril 40 mg daily HCTZ 50 mg daily will monitor Hypercholesterolemia 136 45121 E78.00 atorvastat in 20 mg daily fenofibrat e 145 mg daily will monitor Spinal mg nosis of lumbar region 63376963 M48.061 cyclobenza tutu 10 mg tid nortriptyl ine 25 mg bid diclofenac 75 mg bid gabapentin 300 mg bid and 600 mg at hs oxycodone 5-10 mg q4h prn fu neurosurge ry PT/OT [id number] YANG SWEET [address] [address] 01/17/2020 08:06:37 01/25/2020 11:54:15 Spinal stenosis of lumbar region 45415857 M48.062 s/p L4-5 decompress ion 01/03/20 by Tana diclofenac on 01/08/20-75 mg bid oxycodone 5-10 mg q 4 hrs prn cyclobenza tutu 10 mg tid neurontin 300 mg bid and 600 mg q hs follow up with surgeon on 02/15/20 and as needed Diabetes mellitus 423774 09 E11.9 trulicity 1.5 mg q week on sundays lantus 45 units qd januvia 100 mg qd follow up with PCP Essential hypertension 45619014 I10 amlodipine 5 mg qd benazepril 40 mg q am HCTZ 50 mg qd follow up with PCP Hypercholesterolemia 136 83758 E78.2 atorvastat in 20 mg qd fenofibrat e 145 mg qd follow up with PCP Insomnia 939480126 G47.0 9 follow up with PCP Depressive disorder 3548 9007 F32.89 zoloft 50 mg qd nortriptyl ine 25 mg q 12 hrs follow up with PCP Vitamin D deficiency 347 65085 E56.8 vitamin D3 1000 iu qd follow up with PCP [id number] Sonja Gibbs NP [facility] [address] [address] 02/14/2023 08:55:37 02/19/2023 09:34:58 Spinal stenosis of lumbar region 63112430 M48.062 s/p L4-5 decompress ion 01/03/20 by Jimmyee knee surgery oxycodonec yclobenzap rine 10 mg bedtime prnmonitor pain Diabetes mellitus 481089 09 E11.9 cont home regimentru licity 1.5 sc at 0900 on iba 55 units sc bedtimemet formin 500 mg er bidjardian ce 25 mg qdvascepa 2 g po bidmonitor bs bid x 3 days and reeval Essential hypertension 69167860 I10 hydralazin e 10 mg po tidbenazep ril 40 mg q am (per dc instructio ns and pt on both)lisin opril 20 mg po daily (per dc instructio ns and pt on both)furos emide 20 mg po dailymonit or bp, hr Hypercholesterolemia 136 65009 E78.2 atorvastat in 20 mg qdfenofibr ate 145 mg qd Insomnia 274156736 G47.0 9 follow up with PCP Depressive disorder 3548 9007 F32.89 lorazepam 1 mg po bidmonitor for anxiety Vitamin D deficiency 347 93261 E56.8 vitamin D3 1000 iu qd Acute pain of joint of knee 0700164095 91509 M25.569 sp post op 02/11/23 total knee [...] stregth, gait trainingcb c bmp weekly Constipation 13927009 K5 9.00 post op constipati oncont docusate 100 mg po bid*start milk of magnesia 30 cc po today and q 24 hours prn constipati on [id number] Judie Camacho MD [address] [address] 02/18/2023 19:53:10 02/20/2023 08:52:13 Spinal stenosis of lumbar region 17892605 M48.062 With chronic back pain. Uses oxycodone 5 mg TID at baseline and cyclobenza tutu 10 mg qhs prnPT/OT as above.Tabitha tor pain Diabetes mellitus 064231 09 E11.9 Last HgA1C was 7.9 on 01/31/23, BS have been good since hereReport ed[place] doesn't use all his meds regularly due to cost.Vasu nue trulicity 1.5 weekly, tresiba 55 U qd, metformin 500 mg BID, and jardiance 25 mg qdMonitor fingerstic ks BID and HgA1C as outpt. Essential hypertension 57700862 I10 BP in good control.Co ntinue hydralazin e 10 mg TID, benazepril 40 mg qd, lisinopril 20 mg qd and furosemide 20 mg qd.Monitor BP and labsUnclea r why pt is on 2 SHANNON inhibitors , but will leave for PCP to manage. Vitamin D deficiency 347 25973 E56.8 Continue vitamin D3 1000 IU qdMonitor as outpt. Constipation 02626019 K5 9.09 Will add miralax 17 gms qd and continue docusate 100 mg BID and MOM prn.Monito r bowel function Osteoarthr itis of knee 599177092 M17.12 Z96.652 Recovering slowly after LTKR.Vasu nue [...] f/u Chronic ki dney disease stage 1 538201397 N18.1 At baseline.C ontinue to avoid nephrotoxi c meds as able.Monit or labs.Renal consult prn. Hyperlipidemia 54713497 E78.49 E78.1 Last lipids in system from 02/2021, trig were still high, but TC and HDL ok.Continu e atorvastat in 20 mg qd, fenofibrat e 145 mg qd and vascepa 2 g BID.Will get lipid profile while here, then f/u with PCP as outpt. Mixed anxi ety and depressive disorder 620397523 F41.8 Per pt. was still on sertraline , but per inpt notes, not filled at either [facility] or [facility] recently.C ontinue lorazepam 1 mg BID.monito r for anxiety [id number] Sonja Gibbs, DIAMOND [facility] [place] [address] 02/21/2023 10:00:03 02/25/2023 10:32:50 Osteoarthritis of knee 942913096 M17.12 Z96.652 LTKR originally done on ontinu [...] f/u Spinal mg nosis of lumbar region 33284041 M48.062 With chronic back pain.oxyco done 5 mg TID at baseline and cyclobenza tutu 10 mg qhs prn at baseline, now see above osteoarthr itis of knee for new pain regimenPT/ OT as above.Tabitha tor pain Diabetes mellitus 962464 09 E11.9 Last HgA1C was 7.9 on 01/31/23, BS have been good since hereContin uetrulicit y 1.5 weeklytres iba 55 U qdmetformi n 500 mg BID,jardia nce 25 mg qdMonitor fingerstic ks BID and HgA1C as outpt. Essential hypertension 18343861 I10 BP in good control. slightly high likely due to painContin uehydralaz ine 10 mg TIDbenazep ril 40 mg qdlisinopr il 20 mg qdfurosemi de 20 mg qd.Monitor BP and labsUnclea r why pt is on 2 SHANNON inhibitors , but will leave for PCP to manage. (pt on this regimen for many years and reports it works) Hyperlipidemia 20017337 E78.49 E78.1 Last lipids in system from 02/2021, trig were still high, but TC and HDL ok.Continu eatorvasta tin 20 mg qdfenofibr ate 145 mg qdvascepa 2 g BID.lipid profile pendingf/u with PCP as outpt. Mixed anxi ety and depressive disorder 840162483 F41.8 Per pt. was still on sertraline , but per inpt notes, not filled at either [facility] or [facility] recently.C ontinuelor azepam 1 mg BID.monito r for anxiety Vitamin D deficiency 347 25106 E56.8 Continuevi tamin D3 1000 IU qdMonitor as outpt. Constipation 17755297 K5 9.09 with hard stools per report latelymira lax 17 gms qddocusate 100 mg BIDMOM prn.Monito r bowel function Chronic ki dney disease stage 1 586629447 N18.1 At baseline.C ontinue to avoid nephrotoxi c meds as able.Monit or labs.Renal consult prn. [id number] Sonja Gibbs NP [address] [address] 02/24/2023 08:59:01 02/28/2023 10:19:51 Osteoarthritis of knee 502995858 M17.12 Z96.652 LTKR originally done on inc [...] ortho on 02/[address]ana Apple [place] [place] appt with office as pt states his cheng states it is for PT)Keep aquacel dressing in place until f/u Diabetes mellitus 486762 09 E11.9 Last HgA1C was 7.9 on 01/31/23, BS have been good since hereContin uetrulicit y 1.5 weeklytres iba 55 U qdmetformi n 500 mg BID,jardia nce 25 mg qdMonitor fingerstic ks BID and HgA1C as outpt. Spinal mg nosis of lumbar region 68081058 M48.062 With chronic back pain.oxyco done 5 mg TID at baseline and cyclobenza tutu 10 mg qhs prn at baseline, now see above osteoarthr itis of knee for new pain regimenPT/ OT as above.Tabitha tor pain Essential hypertension 34986839 I10 BP slightly high likely due to painContin uehydralaz ine 10 mg TIDbenazep ril 40 mg qdlisinopr il 20 mg qdfurosemi de 20 mg qd.Monitor BP and labsUnclea r why pt is on 2 SHANNON inhibitors , but will leave for PCP to manage. (pt on this regimen for many years and reports it works) Hyperlipidemia 05988938 E78.49 E78.1 Last lipids in system from 02/2021, trig were still high, but TC and HDL ok.Continu eatorvasta tin 20 mg qdfenofibr ate 145 mg qdvascepa 2 g BID.lipid profile pendingf/u with PCP as outpt. Mixed anxi ety and depressive disorder 598988146 F41.8 Per pt. was still on sertraline , but per inpt notes, not filled at either [facility] or [facility] recently.C ontinuelor azepam 1 mg BID.monito r for anxiety Vitamin D deficiency 347 72931 E56.8 Continuevi tamin D3 1000 IU qdMonitor as outpt. Constipation 59440763 K5 9.09 with hard stools per report latelyincr ease miralax 17 gms qd to bidcont docusate 100 mg BIDMOM prn. q 24 hours if hard stools or no bmMonitor bowel function Chronic ki dney disease stage 1 221195900 N18.1 At baseline.C ontinue to avoid nephrotoxi c meds as able.Monit or labs.Renal consult prn. [id number] Sonja Gibbs NP [address] [place] [address] 02/28/2023 08:24:09 03/03/2023 11:01:20 Osteoarthritis of knee 654577101 M17.12 Z96.652 LTKR originally done on oxy [...] and make 2 week appt today Constipation 46559484 K5 9.09 resolvingc ontmiralax 17 gms qd to biddocusat e 100 mg BIDMOM prn. q 24 hours if hard stools or no bmMonitor bowel function Diabetes mellitus 294258 09 E11.9 Last HgA1C was 7.9 on 01/31/23, BS have been good since hereContin uetrulicit y 1.5 weeklytres iba 55 U qdmetformi n 500 mg BID,jardia nce 25 mg qdMonitor fingerstic ks BID and HgA1C as outpt. Spinal mg nosis of lumbar region 87989449 M48.062 With chronic back pain.oxyco done 5 mg TID at baseline and cyclobenza tutu 10 mg qhs prn at baseline, now see above osteoarthr itis of knee for new pain regimenPT/ OT as above.Tabitha tor pain Essential hypertension 99940892 I10 BP slightly high likely due to pain, will monitor closelyCon tinuehydra lazine 10 mg TIDbenazep ril 40 mg qdlisinopr il 20 mg qdfurosemi de 20 mg qd.Monitor BP and labsUnclea r why pt is on 2 SHANNON inhibitors , but will leave for PCP to manage. (pt on this regimen for many years and reports it works) Hyperlipidemia 55609446 E78.49 E78.1 Last lipids in system from 02/2021, trig were still high, but TC and HDL ok.Continu eatorvasta tin 20 mg qdfenofibr ate 145 mg qdvascepa 2 g BID.lipid profile pendingf/u with PCP as outpt. Mixed anxi ety and depressive disorder 684818461 F41.8 Per pt. was still on sertraline , but per inpt notes, not filled at either [facility] or [facility] recently.C ontinuelor azepam 1 mg BID.monito r for anxiety Vitamin D deficiency 347 75061 E56.8 Continuevi tamin D3 1000 IU qdMonitor as outpt. Chronic ki dney disease stage 1 318512740 N18.1 At baseline.C ontinue to avoid nephrotoxi c meds as able.Monit or labs.Renal consult prn. [id number] Sonja Gibbs NP [address] [address] 03/03/2023 08:59:22 03/05/2023 08:05:09 Osteoarthritis of knee 977939531 M17.12 Z96.652 LTKR originally done on oxy [...] and make fu appt-still no note Constipation 81976910 K5 9.09 better on this regimencon tmiralax 17 gms qd to biddocusat e 100 mg BIDMOM prn. q 24 hours if hard stools or no bmMonitor bowel function Diabetes mellitus 449396 09 E11.9 Last HgA1C was 7.9 on 01/31/23, BS have been good since hereContin uetrulicit y 1.5 weeklytres iba 55 U qdmetformi n 500 mg BID,jardia nce 25 mg qdMonitor fingerstic ks BID and HgA1C as outpt. Spinal mg nosis of lumbar region 43310449 M48.062 With chronic back pain.oxyco done 5 mg TID at baseline and cyclobenza tutu 10 mg qhs prn at baseline, now see above with osteoarthr itis of knee for new pain regimenPT/ OT as above.Tabitha tor pain Essential hypertension 76245039 I10 BP slightly high likely due to pain now improving, will monitor closely 130s/70sCo ntinuehydr alazine 10 mg TIDbenazep ril 40 mg qdlisinopr il 20 mg qdfurosemi de 20 mg qd.Monitor BP and labsUnclea r why pt is on 2 SHANNON inhibitors , but will leave for PCP to manage. (pt on this regimen for many years and reports it works) Hyperlipidemia 27401644 E78.49 E78.1 Last lipids in system from 02/2021, trig were still high, but TC and HDL ok.Continu eatorvasta tin 20 mg qdfenofibr ate 145 mg qdvascepa 2 g BID.lipid profile pendingf/u with PCP as outpt. Mixed anxi ety and depressive disorder 366907211 F41.8 Per pt. was still on sertraline , but per inpt notes, not filled at either [facility] or [facility] recently.C ontinuelor azepam 1 mg BID.monito r for anxiety Chronic ki dney disease stage 1 708247192 N18.1 At baseline.C ontinue to avoid nephrotoxi c meds as able.Monit or labs.Renal consult prn. Edema of l ower extremity 475334132 R60.0 nsg and pt state bilateral feet swelling, now better this am after feet up all night, likely dependent as he is up more throughout the day 03/03 start compressio n stockings on in am off in pmmonitor [id number] Sonja Gibbs NP [address] [place] [address] 03/06/2023 11:01:35 03/11/2023 09:41:09 Osteoarthritis of knee 313466664 M17.12 Z96.652 LTKR originally done on 02/11oxycodo [...] ortho on 02/[address] [place] [place] with office as pt states his cheng states it is for PT)fu with ortho and pcp outpt and PT services amended orderpt has pain and oxycodone not availablet ramadol 100 mg po q 6 hours prn x 24 hoursmonit or Constipation 12502626 K5 9.09 miralax 17 gms qd to bid, titrate as neededdocu sate 100 mg BIDMOM prn. q 24 hours if hard stools or no bmMonitor bowel function outpt with vna pcp Diabetes mellitus 100759 09 E11.9 Last HgA1C was 7.9 on 01/31/23, BS have been good since heretrulic ity 1.5 weeklytres iba 55 U qdmetformi n 500 mg BID,jardia nce 25 mg qdMonitor fingerstic ks BID and HgA1C as outpt.foll ow with pcp outpt Spinal mg nosis of lumbar region 04250309 M48.062 With chronic back pain.oxyco done 5 mg TID at baseline(s ee increased regimen above osteoarthr itis please ) and cyclobenza tutu 10 mg qhs prn at baselinePT /OT as above.Tabitha tor pain outpt with pcp Essential hypertension 08263571 I10 BP slightly high likely due to painContin uehydralaz ine 10 mg TIDbenazep ril 40 mg qdlisinopr il 20 mg qdfurosemi de 20 mg qd.Monitor BP and labsUnclea r why pt is on 2 SHANNON inhibitors , but will leave for PCP to manage outpt. (pt on this regimen for many years and reports it works) Hyperlipidemia 46369806 E78.49 E78.1 Last lipids in system from 02/2021, trig were still high, but TC and HDL ok.Continu eatorvasta tin 20 mg qdfenofibr ate 145 mg qdvascepa 2 g BID.lipid profile pendingf/u with PCP as outpt. Mixed anxi ety and depressive disorder 385690226 F41.8 Per pt. was still on sertraline , but per inpt notes, not filled at either [facility] or [facility] recently.C ontinuelor azepam 1 mg BID.monito r for anxiety outpt with pcp Vitamin D deficiency 347 54018 E56.8 Continuevi tamin D3 1000 IU qdMonitor as outpt with pcp Chronic ki dney disease stage 1 102222500 N18.1 At baseline.C ontinue to avoid nephrotoxi c meds as able.Monit or labs.Renal consult prn outpt Hypercholesterolemia 136 00965 E78.2 atorvastat in 20 mg qdfenofibr ate 145 mg qdfu with pcp outpt Insomnia 981358896 G47.0 9 follow up with PCP outpt [id number] Judie Camacho MD [address] [address] 05/07/2024 18:25:29 05/10/2024 08:52:32 Chronic diastolic heart failure 059655527 I50.32 Pt says he never had any [...] labs. Spinal mg nosis of lumbar region 41649630 M48.062 With chronic back pain. Uses oxy[facility]one 10 mg Q[facility] at [facility]W ritten for 5 mg QID at hospital, will change back to baseline dose.Very deconditio amaury.Needs PT/OT for strengthen ing, balance, gait training, safety and function.C ontinue fall precaution s.Monitor for safety.Mon itor pain controlCel ebrex on hold. Hypercholesterolemia 136 88643 E78.2 Continue atorvastat in 20 mg qd, fenofibrat e 145 mg qd, vascepa 2 g BID, and ASA 81 mg qd.Monitor labs as outpt. Essential hypertension 77673840 I10 SBP a little high yesterday, not checked todayConti nue meds as above and amlodipine 2.5 mg qd.Monitor BP and labsDaily BPs ordered. Diabetes mellitus 346099 09 E11.9 Last HgA1C was 7.9 in 11/2023.Fol lowed by endocrine at [facility].Contin ue trulicity 1.5 weekly, tresiba 35 U qd, metformin 500 mg BID, januvia 25 mg qd, and SSITresiba not yet delivered, ok to use Lantus instead tonight.Mo nitor fingerstic ks TID and HgA1C as outpt. Depressive disorder 3548 9007 F32.89 In hx.On no meds.Monit or mood.Psych consult prn. Chronic ki dney disease stage 2 083087476 N18.2 At baseline.C ontinue to avoid nephrotoxi c meds as able.Monit or labs.Renal consult prn. Benign pro static hyperplasia without outflow obstruction 628658707 N40.0 In hx, with some issues with retention at times.Cont inue tamsulosin 0.4 mg qd. [id number] MARIE TORRES NP [facility] [address] [place] [address] 05/13/2024 13:47:03 05/14/2024 10:52:03 Chronic diastolic heart failure 967320280 I50.32 Pt says he never had any [...] 3 Spinal mg nosis of lumbar region 91702006 M48.062 With chronic back pain. Uses oxycodone 10 mg QID at baseline (checked in [facility]).W ritten for 5 mg QID at hospital, will change back to baseline dose.Very deconditio amaury.Needs PT/OT for strengthen ing, balance, gait training, safety and function.C ontinue fall precaution s.Monitor for safety.Mon itor pain controlCel ebrex on hold. Diabetes mellitus 206863 09 E11.9 Last HgA1C was 7.9 in 11/2023.Fol lowed by endocrine at [facility].Contin ue trulicity 1.5 weekly, tresiba 35 U qd, metformin 500 mg BID, januvia 25 mg qd, and SSITresiba not yet delivered, ok to use Lantus instead tonight.Mo nitor fingerstic ks TID and HgA1C as outpt. Essential hypertension 68571949 I10 SBP a little high yesterday, not checked todayConti nue meds as above and amlodipine 2.5 mg qd.Monitor BP and labsDaily BPs ordered. Chronic ki dney disease stage 2 746465095 N18.2 At baseline.C ontinue to avoid nephrotoxi c meds as able.Monit or labs.Renal consult prn. Hypercholesterolemia 136 03612 E78.2 Continue atorvastat in 20 mg qd, fenofibrat e 145 mg qd, vascepa 2 g BID, and ASA 81 mg qd.Monitor labs as outpt. Depressive disorder 3548 9007 F32.89 In hx.On no meds.Monit or mood.Psych consult prn. Benign pro static hyperplasia without outflow obstruction 024270503 N40.0 In hx, with some issues with retention at times.Cont inue tamsulosin 0.4 mg qd. Pain in right arm 710774 004 M79.601 New onset, x 2-3d. Denies trauma or injury.Exa m limited due to painPMR assessed as well.Plan -Check x rays and venous USOxycodon e already available for pain.Monit or closely. [id number] Sonja Gibbs, DIAMOND [facility] [address] [address] 05/14/2024 11:54:20 05/17/2024 11:03:10 Chronic diastolic heart failure 062118509 I50.32 Pt's main c/o was and continues [...] today Spinal mg nosis of lumbar region 60784289 M48.062 With chronic back pain. hx of oxycodone 10 mg QID at baseline ([facility] and changed to baseline dose as hosp decreased it to 5mg QID prnVery deconditio amaury.Needs PT/OT for strengthen ing, balance, gait training, safety and function.C ontinue fall precaution s.Monitor for safety.Mon itor pain controlCel ebrex on hold. Diabetes mellitus 123132 09 E11.9 BS 127 today and stable, [facility] HgA[facility] was 7.9 in 11/2023.Con [place] 1.5 weekly, tresiba 35 U qd, metformin 500 mg BID, januvia 25 mg qd, and SSIMonitor fingerstic ks TID and HgA1C as outpt. Essential hypertension 65388887 I10 bp stable 128/72 todayConti nue meds as above and amlodipine 2.5 mg qd.Monitor BP and labsDaily BPs ordered. Chronic ki dney disease stage 2 524736936 N18.2 At baseline.C ontinue to avoid nephrotoxi c meds as able.Monit or labs.Renal consult prn. Hypercholesterolemia 136 86851 E78.2 Continueat orvastatin 20 mg qd, fenofibrat e 145 mg qd, vascepa 2 g BID, and ASA 81 mg qd.Monitor labs as outpt. Depressive disorder 3548 9007 F32.89 In hx.On no meds.Monit or mood.Psych consult prn. Benign pro static hyperplasia without outflow obstruction 471123348 N40.0 In hx, with some issues with retention at times.Cont inuetamsul osin 0.4 mg qd. Pain in right arm 581295 004 M79.601 New onset, x 2-3d. Denies trauma or injury. feels it is improvingx rays and venous US to right arm negative for acute findingsOx ycodone for pain.05/14 seen by physiatry on 05/13 rec: tyl 1000 mg po tid and lidocaine patch, will agree and order todayMonit or closely. Dizziness 003101647 R42 pt reports dizziness today directly related to the room being hot05/14 requests to move room, decrease heat or leave facility, nursing aware and heat reduced, vitals and BS stablemoni tor closely for improvemen t or changes Tinea pedis 2164266 B35. 3 clotrimazo le 1 % cream bid x 10 daysmonito r [id number] Sonja Gibbs NP [facility] [address] [place] [address] 05/20/2024 07:43:04 05/21/2024 11:07:38 Pain in right arm 060559572 M79.601 New onset, x 2-3d. Denies trauma or injury. feels it is improvingx rays and venous US to right arm negative for acute findingsOx ycodone for pain.physi atry rec tyl 1000 mg po tid and lidocaine patch which is helping but remains with pain. will reconsult1 07/20 will increase cyclobenza tutu to bid todayMonit or closely. Tinea pedis 4873710 B35. 3 improving slightlycl otrimazole 1 % cream bid x 10 daysmonito r Chronic di astolic heart failure 676376793 I50.32 Pt's main c/o was and continues [...] x1 Spinal mg nosis of lumbar region 81392852 M48.062 With chronic back pain. hx of oxycodone 10 mg QID at baseline (HOSE [facility]NER checked in [facility] home dose).cont PT/OT for strengthen ing, balance, gait training, safety and function.C ontinue fall precaution s.Monitor for safety.Mon itor pain controlCel ebrex on hold. Diabetes mellitus 498765 09 E11.9 BS 102-182 stable, [facility] HgA1C was 7.9 in 11/2023.Con [place] 1.5 weekly, tresiba 35 U qd, metformin 500 mg BID, januvia 25 mg qd, and SSIMonitor fingerstic ks TID and HgA1C as outpt. Essential hypertension 64894573 I10 bp stable 126/69 todayConti nue meds as above and amlodipine 2.5 mg qd.Monitor BP and labsDaily BPs ordered. Chronic ki dney disease stage 2 765205787 N18.2 At baseline.C ontinue to avoid nephrotoxi c meds as able.Monit or labs.Renal consult prn. Hypercholesterolemia 136 24789 E78.2 Continueat orvastatin 20 mg qd, fenofibrat e 145 mg qd, vascepa 2 g BID, and ASA 81 mg qd.Monitor labs as outpt. Depressive disorder 3548 9007 F32.89 In hx.On no meds.Monit or mood.Psych consult prn. Benign pro static hyperplasia without outflow obstruction 825377123 N40.0 In hx, with some issues with retention at times.Cont inuetamsul osin 0.4 mg qd. [id number] Sonja Gibbs NP [address] [address] 05/27/2024 13:47:02 05/28/2024 10:07:06 Pain in right arm 315246808 M79.601 Denies trauma or injury. feels it is improving. refuses additional meds for pain todayx rays and venous US to right arm negative for acute findingsOx ycodone for pain.physi atry rec tyl 1000 mg po tid and lidocaine patch which is helpingcyc lobenzapri ne to bid todayMonit or closely. Tinea pedis 7120363 B35. 3 improvingc lotrimazol e 1 % cream bid x 10 days to completemo nitor Chronic di astolic heart failure 899154223 I50.32 Pt's main c/o was and continues [...] above Spinal mg nosis of lumbar region 16248074 M48.062 With chronic back pain. hx of oxycodone 10 mg QID at baseline, will cont(HOSE [employer]NER checked in [facility] home dose).cont PT/OT for strengthen ing, balance, gait training, safety and function.C ontinue fall precaution s.Monitor for safety.Mon itor pain controlCel ebrex remains on hold. Diabetes mellitus 647471 09 E11.9 BS 100s-occ 200s stable, [facility] outptLast HgA1C was 7.9 in 11/2023.Con [place] 1.5 weekly, tresiba 35 U qd, metformin 500 mg BID, januvia 25 mg qd, and SSIMonitor fingerstic ks TID and HgA1C as outpt. Essential hypertension 82376418 I10 bp stableCont inue meds as above and amlodipine 2.5 mg qd.Monitor BP and labs Chronic ki dney disease stage 2 090639305 N18.2 At baseline.C ontinue to avoid nephrotoxi c meds as able.Monit or labs.Renal consult prn. Hypercholesterolemia 136 66337 E78.2 Continueat orvastatin 20 mg qd, fenofibrat e 145 mg qd, vascepa 2 g BID, and ASA 81 mg qd.Monitor labs as outpt. Depressive disorder 3548 9007 F32.89 a little down today, wishes his progress was futher, but reports okayOn no meds.Monit or mood.Psych consult prn. Benign pro static hyperplasia without outflow obstruction 961498680 N40.0 In hx, with some issues with retention at times.Cont inuetamsul osin 0.4 mg qd. Asthenia 41646473 R53.1 remains with weakness to legs and armsPT/OT eval and treatmonit or [id number] Sonja Gibbs NP [address] [address] 05/31/2024 10:47:07 06/02/2024 08:35:29 Pain in right arm 982596498 M79.601 Denies trauma or injury. feels it is improving. refuses additional meds for pain today but requests the oxycodone 10 mg scheduled instead of prnx rays and venous US to right arm negative for acute syqjguoe31 /25 sched Oxycodone 10 mg po q 6 hours and dc prn doses for pain.physi atry rec tyl 1000 mg po tid and lidocaine patch which is helpingcyc lobenzapri ne bidMRI sched for 06/01 of back and hoping to get more info on status and diagnosisM onitor closely. Asthenia 15071104 R53.1 remains with weakness to legs and armsPT/OT eval and treatmonit or Depressive disorder 3548 9007 F32.89 a little down today, wishes his progress was futher, but reports okayOn no meds.Monit or mood.Psych consult prn. Chronic di astolic heart failure 448893628 I50.32 Pt's main c/o was and continues [...] stable Spinal mg nosis of lumbar region 89632960 M48.062 With chronic back pain. hx of oxycodone 10 mg QID at baseline, will cont(HOSE TURNER checked in [facility] home dose). MRI sched for 06/01 of back and hoping to get more info on status and diagnosis contPT/OT for strengthen ing, balance, gait training, safety and function.C ontinue fall precaution s.Monitor for safety.Mon itor pain controlCel ebrex remains on hold. Diabetes mellitus 019535 09 E11.9 BS 100s-occ 200s stable, [facility] outptLast HgA1C was 7.9 in 11/2023.Con [place] 1.5 weekly, tresiba 35 U qd, metformin 500 mg BID, januvia 25 mg qd, and SSIMonitor fingerstic ks TID and HgA1C as outpt. Essential hypertension 42283483 I10 bp stableCont inue meds as above and amlodipine 2.5 mg qd.Monitor BP and labs Chronic ki dney disease stage 2 407371575 N18.2 At baseline.C ontinue to avoid nephrotoxi c meds as able.Monit or labs.Renal consult prn. [id number] [facility] [address] 06/17/2024 08:35:00 06/18/2024 14:22:00 Spinal stenosis of lumbar region 36720893 M48.062 With chronic back pain. hx of [...] His pcp Dr Jacinto referred him to [facility] [...] remains on hold. Pain in right arm 227935 004 M79.601 Denies trauma or injury. feels it is improving. has decreased rom and lymphedema for some time nowcontphy siatry prn consultedc onttyl 1000 mg po tid and lidocaine patch which is helpingsch ed Oxycodone 10 mg po q 6 hours and dc prn doses for pain.cyclo benzaprine bidMRI sched for 06/01 of back results pending. nsg obtainingM onitor closely. Asthenia 33439520 R53.1 remains with weakness to left leg and right armPT/OT eval and treat prn, off regular therapymon itor Osteoarthr itis of knee 009422984 M17.12 Z96.652 LTKR originally done on 02/11remains [...] hours prn n/v x 30 days Constipation 85564154 K5 9.09 unclear why bowel meds decreased recently, now with 6 days of constipati onmiralax 17 gms prn qd, titrate as neededdocu sate 100 mg daily06/17 MOM 30 [facility] and give bisacodyl supp if no results in a few hoursMonit or bowel function outpt with vna pcp [id number] Judie Camacho [facility] [address] 06/18/2024 19:40:37 12/14/2024 09:26:32 Nausea and vomiting 18242959 R11.2 Thought due to constipati on.Improve dContinue zofran 4 mg q 6 hrs prnMonitor for recurrence . Constipation 60078765 K5 9.09 Continue bowel meds as ordered.Mo nitor bowel function. Spinal mg nosis of lumbar region 81765602 M48.062 With mod to severe spinal canal and foraminal stenosis worst at L3-4 and L4-5.Uncle ar if this could be related to sxs, locations not really consistent .Continue oxycodone 10 mg q 6 hrs, APAP 1000 mg TID, gabapentin 200 mg BID, cyclobenza tutu 10 mg BID, and lidocaine patches as needed.Con tinue fall precaution s.Monitor for safety.Mon itor pain controlF/U with specialist s as planned. Pain in right arm 637236 004 M79.601 As above. Asthenia 42737963 R53.1 Continues with weakness of LLE and RUEPT/OT prnF/U with specialist s as planned. Chronic di astolic heart failure 411664194 I50.32 Only sx is peripheral edemaHis last echo was in 2022 and showed EF of 60-65% and grade 1 diastolic dysfunctio n.Continue benazapril 40 mg qd, lasix 40 mg qd, and hydralazin e 25 mg qd.Also on Trulicity, which is cardioprot ective.Cheng ears euvolemic. Monitor resp. status, fluid status, wts and labs. Diabetes mellitus 771005 09 E11.9 Last HgA1C was 7.9 in 11/2023.Fol lowed by endocrine at [facility].Contin ue trulicity 1.5 weekly, tresiba 35 U qd, metformin 500 mg BID, januvia 25 mg qd, and SSITresiba not yet delivered, ok to use Lantus instead tonight.Mo nitor fingerstic ks TID and HgA1C as outpt. Essential hypertension 00229952 I10 SBP a little high yesterday, not checked todayConti nue meds as above and amlodipine 2.5 mg qd.Monitor BP and labsDaily BPs ordered. Chronic ki dney disease stage 2 520602902 N18.2 At baseline.C ontinue to avoid nephrotoxi c meds as able.Monit or labs.Renal consult prn. Hypercholesterolemia 136 55450 E78.2 Continue atorvastat in 20 mg qd, fenofibrat e 145 mg qd, vascepa 2 g BID, and ASA 81 mg qd.Monitor labs as outpt. Depressive disorder 3548 9007 F32.89 In hx.On no meds.Monit or mood.Psych consult prn. Benign pro static hyperplasia without outflow obstruction 500878221 N40.0 In hx, with some issues with retention at times.Cont inue tamsulosin 0.4 mg qd. [id number] MARIE TORRES NP [facility] [address] 06/22/2024 12:27:29 06/23/2024 09:31:59 Gastroesophageal reflux disease without esophagitis 891736876 K21.9 Using TUMS frequently for GERD/GI sx.Start pepcid 20 mg bidMonitor sx.If remain problemati c, consider trial of PPI [id number] Sonja Gibbs NP [facility] [address] 06/23/2024 13:31:14 06/24/2024 12:10:49 Asthenia 65368542 R53.1 remains with weakness to left leg and right armPT/OT eval and treat prn, off regular therapymon itor Constipation 01886472 K5 9.09 unclear why bowel meds decreased recently, now with 2 days of constipati on and continues with this every couple of days give mom 30 cc and bisacodyl 10 pr supp nowcont miralax 17 gms prn daily(sche duled)cydney a plus 2 tabs dailydc docusateMo nitor bowel function Spinal mg nosis of lumbar region 87151968 M48.062 With chronic back pain. hx of [...] Apple 06/24 for right shoulder painalso 07/29/24 [facility] and sport at 1 pm. contPT/OT for strengthen ing, balance, gait training, safety and function prnremains barrington lift at this timeContin ue fall precaution s.Monitor for safety.Mon itor pain controlCel ebrex remains on hold. Pain in right arm 510109 004 M79.601 Denies trauma or injury. feels it is improving. has decreased rom and lymphedema for some time nowcontphy siatry prn consultedc onttyl 1000 mg po tid and lidocaine patch which is helpingsch eduled Oxycodone 10 mg po q 6 hours and dc prn doses for pain.cyclo benzaprine bidMonitor closely.se e above for management Osteoarthr itis of knee 189085511 M17.12 Z96.652 LTKR originally done on 02/11remains [...] 06/17monit or Chronic di astolic heart failure 197285328 I50.32 Pt says he never had any [...] fluid status, wts and labs. Diabetes mellitus 981206 09 E11.9 Last HgA1C was 7.9 in 11/2023.Fol lowed by endocrine at [facility].Contin uetrulicit y 1.5 weekly, tresiba 35 U qd, metformin 500 mg BID, januvia 25 mg qd, and SSIMonitor fingerstic ks TID and HgA1C as outpt. Essential hypertension 04742961 I10 stable 133/82Cont inue meds as above and amlodipine 2.5 mg qd.Monitor BP and labsDaily BPs ordered. Depressive disorder 3548 9007 F32.89 In hx.On no meds.Monit or mood.Psych consult prn. Benign pro static hyperplasia without outflow obstruction 300393542 N40.0 In hx, with some issues with retention at times.Cont inuetamsul osin 0.4 mg qd. [id number] Sonja Gibbs NP [facility] [address] 06/25/2024 10:45:21 06/28/2024 14:12:37 Asthenia 75174274 R53.1 remains with weakness to left leg and right arm06/25 right arm and left knee brace on in am and off in pm per dr anderson's ordersPT/O T eval and treat prn, off regular jean mccullough Spinal mg nosis of lumbar region 85467818 M48.062 With chronic back pain. hx of [...] and off in pmfu after MRI 07/29/24 [facility] spine and sport at 1 pm sched from outside provider contPT/OT for strengthen ing, balance, gait training, safety and function prnremains barrington lift at this timeContin ue fall precaution s.Monitor for safety.Margareth mccullough pain controlCel ebrex remains on hold. Pain in right arm 252707 004 M79.601 Denies trauma or injury. feels [...] above for management Osteoarthr itis of knee 001232753 M17.12 Z96.652 LTKR originally done on 02/11remains [...] ext today on 06/17monit or Diabetes mellitus 634448 09 E11.9 Last HgA1C was 7.9 in 11/2023.Fol lowed by endocrine at [facility].with BS of 58 on 06/25 and similar on 06/23, remains asymptomat icContinue trulicity 1.5 weekly, metformin 500 mg BID, januvia 25 mg qd, and SSI06/25 decrease (degludec) tresiba 30 U qd to 26 unitsMonit or fingerstic ks TID and HgA1C as outpt. [id number] MARIE TORRES NP [facility] [address] [address] 07/01/2024 11:24:41 07/02/2024 11:53:48 Constipation 13323772 K59.09 Documented BM 06/24, 06/28Pt. states no [...] to scheduled dailyTo ER if condition worsens [id number] Sonja Gibbs NP [facility] [address] [address] 07/14/2024 13:30:49 07/16/2024 10:19:43 Diabetes mellitus 49427762 E11.9 Last HgA1C was 7.9 in 11/2023.Fol lowed by endocrine at [facility].with BS of 44 on 07/15 and similar in past, remains asymptomat icContinue trulicity 1.5 weekly, metformin 500 mg BID, januvia 25 mg qd, and SSI1/8 decrease (degludec) tresiba 26 U qd to 20 unitsMonit or fingerstic ks TID and HgA1C as outpt.of note was on 35 units of insulin in recent past Asthenia 93702673 R53.1 remains with weakness to left leg and right arm12/20 right arm and left knee brace on in am and off in pm per dr anderson's ordersPT/O T eval and treat prn, off regular therapymon itor [id number] Sonja Gibbs NP [address] [place] [address] 07/22/2024 14:17:32 07/23/2024 15:07:54 Constipation 36096910 K59.09 with regular bm per patient todayCurre ntly no abd. pain, no N/V.BS x3Nxhwzkma e fluids, dietary fiber.cont senna plus 2 tabs qdmiralax dailyhouse bowel protocol prn Diabetes mellitus 299434 09 E11.9 Last HgA1C was 7.9 in 11/2023.Fol lowed by endocrine at [facility] with multiple low BS in amContinue trulicity 1.5 weeklymetf ormin 500 mg BIDanuvia 25 mg qd, and SSI(deglud ec)tresiba 20 unitsMonit or fingerstic ks TID and HgA1C as outpt.(of note was on 35 units of insulin in recent past) Asthenia 02459297 R53.1 remains with weakness to left leg and right arm, and today with right leg weaknessri ght arm and left knee brace on in am and off in pm per dr anderson's ordersPT/O T eval and treat prn, off regular therapymon itor Spinal mg nosis of lumbar region 66425108 M48.062 With chronic back pain. hx of [...] in pmfu after MRI sched /29/08 5 [facility] spine and sport at 1 pm sched from outside providerco ntPT/OT for strengthen ing, balance, gait training, safety and function prnremains barrington lift at this timeContin ue fall precaution s.Monitor for safety.Margareth mccullough pain controlCel ebrex remains on hold. Pain in right arm 819214 004 M79.601 Denies trauma or injury. feels [...] above for management Osteoarthr itis of knee 994241666 M17.12 Z96.652 LTKR originally done on 02/11remains [...] concernsmo nitor Chronic di astolic heart failure 109645521 I50.32 per hosp report of CHF.he never [...] fluid status, wts and labs. Essential hypertension 98337755 I10 stableCont inue meds as above and amlodipine 2.5 mg qd.Monitor BP and labsDaily BPs ordered. Depressive disorder 3548 9007 F32.89 In hx.On no meds.Monit or mood.Psych consult prn. Benign pro static hyperplasia without outflow obstruction 824270816 N40.0 In hx, with some issues with retention at times.Cont inuetamsul osin 0.4 mg qd. Gastroesop hageal reflux disease without esophagitis [id number] K21.9 Using TUMS frequently for GERD/GI sx. resolvingc ontpepcid 20 mg bidMonitor sx.If remain problemati c, consider trial of PPI Nausea and vomiting 1693 2000 R11.2 resolvedse e belowzofra n 4 mg po q 6 hours prn n/v x 30 days Chronic ki dney disease stage 2 [id number] N18.2 At baseline.C ontinue to avoid nephrotoxi c meds as able.Monit or labs.Renal consult prn. Hypercholesterolemia 136 25460 E78.2 Continueat orvastatin 20 mg qdfenofibr ate 145 mg qdvascepa 2 g BID,ASA 81 mg qd.Monitor labs as outpt. [id number] Sonja Gibbs NP [address] [address] 07/30/2024 08:03:45 08/03/2024 12:50:06 Spinal stenosis of lumbar region 45477241 M48.062 With chronic back pain and weakness [...] in pmfu after cervical MRI sched 07/3107/29/24 [facility] spine and sport with rec:neuros urgery consult with Dr Serna 07/30 referral to [facility] ordered as recommende d, has MRI today. contPT/OT prn, currently not working with himremains barrington lift at this timeContin ue fall precaution s.Monitor for safety.Margareth mccullough pain controlCel ebrex remains on hold. Asthenia [id number] R53.1 remains with weakness to left leg and right arm, and today with right leg weaknessri ght arm sling and left knee brace on in am and off in pm per dr anderson's ordersPT/O T eval and treat prn, off regular jean mccullough Pain in right arm 892075 004 M79.601 Denies trauma or injury. feels [...] above for management Osteoarthr itis of knee 655828130 M17.12 Z96.652 LTKR originally done on 02/11remains [...] lower ext neg for acute concernsmo nitor [id number] Sonja Gibbs NP [address] [place] [address] 08/04/2024 09:05:47 08/06/2024 09:42:06 Spinal stenosis of lumbar region 48232770 M48.062 With chronic back pain and weakness reported since september or october 2023. 05/13/24 U/S done for swelling to lower right fingers both came back without fracture, dislocatio n, or thrombus.Rich rois is followed outpt by vascular for his [...] rec for minimally invasive spine center at [facility] appt /07/29/24 [facility] spine [facility] sport with rec:neuros urgery [...] of c3 to the superior endplate of c5.[facility] sent pt referral:rich rios was rec for minimally invasive spine center at [facility] appt 08/09 contPT/OT prn, currently not working with himremains barrington lift at this timeContin ue fall precaution s.Monitor for safety.Mon itor pain control see belowCeleb sandip remains on hold. Asthenia [id number] R53.1 remains with weakness to left leg and right arm, and today with right leg weaknessri ght arm sling and left knee brace on in am and off in pm per dr anderson's ordersPT/O T eval and treat prn, off regular therapymon itor Pain in right arm 602134 004 M79.601 Denies trauma or injury. feels [...] above for management Osteoarthr itis of knee 574600551 M17.12 Z96.652 LTKR originally done on 02/11remains [...] neg for acute concernsmo nitor Diabetes mellitus 343911 09 E11.9 Last HgA1C was 7.9 in 11/2023.Janine lowed by endocrine at [facility] with multiple low BS in am of 54, recheck BS came upContinue januvia 25 mg qdSSItruli city 1.5 weekly08/04 increase metformin 500 mg BID to 1000 mg po bid08/04 dc tresiba 20 units qhs for low BSMonitor fingerstic ks TID and HgA1C as outpt.(of note was on 35 units of insulin in recent past) Chronic pain 67031911 G8 9.29 followed by pain management here08/04 start gabapentin 100 mg po bidContinu eoxycodone 10 mg qid for painceleco xib 200 mg BIDAPAP 650 mg TID and q 4 hrs prn (NTE 3000 mg/d),Cont inue fall precaution s.Monitor for safety. Pain of left eye 4273263 001 48996 H57.12 reports left eye pain related to dropper touching his eye last nightno injuries or abnormalit y of eye notedwarm compress given at visit for comfort.mo nitor [id number] Sonja Gibbs NP [address] [address] 08/09/2024 14:58:20 08/10/2024 11:35:43 Diabetes mellitus 56099221 E11.9 Last HgA1C was 7.9 in 11/2023.Fol lowed by endocrine at [facility] with multiple low BS in am of 47, recheck BS came up to 111Continu ejanuvia 25 mg qdSSImetfo rmin 1000 mg po bid2/3 dc trulicity 1.5 weekly(not e tresiba recently dc'd)Monit or fingerstic ks TID and HgA1C as outpt.(of note was on 35 units of long acting insulin in recent past) Chronic pain 61504589 G8 9.29 followed by pain management herecontga bapentin 100 mg po bidoxycodo ne 10 mg qid for painceleco xib 200 mg BIDAPAP 650 mg TID and q 4 hrs prn (NTE 3000 mg/d),Cont inue fall precaution s.Monitor for safety. Spinal mg nosis of lumbar region 38700780 M48.062 With chronic back pain and weakness [...] rec for minimally invasive spine center at [facility] appt 08/0907/29/24 [facility] spine [facility] sport with rec:neuros urgery [...] of c3 to the superior endplate of c5.[facility] sent pt referral:rich rios was rec for minimally invasive spine center at [facility] appt 08/09 08/04 [...] see belowCeleb sandip remains on hold. Asthenia 28137220 R53.1 remains with weakness to left leg and right arm, and today with right leg weaknessri ght arm sling and left knee brace on in am and off in pm per dr anderson's ordersPT/O T eval and treat prn, off regular therapymon itor Pain in right arm 907225 004 M79.601 Denies trauma or injury. feels [...] above for management Osteoarthr itis of knee 572985238 M17.12 Z96.652 LTKR originally done on 02/11remains [...] lower ext neg for acute concernsmo nitor [id number] Sonja Gibbs, DIAMOND [address] [address] 08/20/2024 10:30:03 08/23/2024 10:20:02 Chronic pain 04007189 G89.29 followed by pain management herecontga bapentin 100 mg po bidoxycodo ne 10 mg qid for painceleco xib 200 mg BIDAPAP 650 mg TID and q 4 hrs prn (NTE 3000 mg/d),Cont inue fall precaution s.Monitor for safety. Spinal mg nosis of lumbar region 12534657 M48.062 With chronic back pain and weakness [...] rec for minimally invasive spine center at [facility] appt 08/0907/29/24 [facility] spine [facility] sport with rec:neuros urgery [...] of c3 to the superior endplate of c5.[facility] sent pt referral:rich rios was rec for minimally invasive spine center at [facility] appt 08/09 08/04 referral to [facility] ordered as recommende d with MRI results back today 08/04 from 07/30 08/09 awaiting consult from spine center08/11 fu appoint at minimally invasive spine center to discuss options08/07 Dr Aleisha padilla (neurosurg [place]) dc' [facility] spine center with Dr. [...] see belowCeleb sandip remains on hold. Asthenia 06883709 R53.1 remains with weakness to left leg and right arm, and today with right leg weaknessri ght arm sling and left knee brace on in am and off in pm per dr anderson's ordersPT/O T eval and treat prn, off regular therapymon itor [id number] Sonja Gibbs NP [address] [address] 08/23/2024 09:57:33 08/24/2024 15:31:28 Spinal stenosis of lumbar region 62537837 M48.062 With chronic back pain and weakness [...] rec for minimally invasive spine center at [facility] appt 08/0907/29/24 [facility] spine [facility] sport with rec:neuros urgery [...] of c3 to the superior endplate of c5.[facility] sent pt referral:rich rios was rec for minimally invasive spine center at [facility] appt 08/09 08/04 referral to [facility] ordered as recommende d with MRI results back today 08/04 from 07/30 08/09 awaiting consult from spine center08/11 fu appoint at minimally invasive spine center to discuss options08/07 Dr Aleisha padilla (neurosurg [place]) dc' [facility] spine center with Dr. [...] belowCeleb sandip remains on hold. Chronic pain 01007584 G8 9.29 followed by pain management herecontga bapentin 100 mg po bidoxycodo ne 10 mg qid for painceleco xib 200 mg BIDAPAP 650 mg TID and q 4 hrs prn (NTE 3000 mg/d),Cont inue fall precaution s.Monitor for safety. Difficulty swallowing 28 4726175 R13.10 08/23 startpredn isone 40 mg po [...] and follow labs and for diff swallowing [id number] Sonja Gibbs NP [address] [address] 08/26/2024 10:35:53 08/27/2024 16:16:23 Spinal stenosis of lumbar region 83918582 M48.062 With chronic back pain and weakness [...] rec for minimally invasive spine center at [facility] appt 08/0907/29/24 [facility] spine [facility] sport with rec:neuros urgery [...] of c3 to the superior endplate of c5.[facility] sent pt referral:rich rios was rec for minimally invasive spine center at [facility] appt 08/09 08/04 referral to [facility] ordered as recommende d with MRI results back today 08/04 from 07/30 08/09 awaiting consult from spine center08/11 fu appoint at minimally invasive spine center to discuss options08/07 Dr Aleisha padilla (neurosurg [place]) dc'd2/13 [facility] spine center with Dr. [...] lipid profile for 08/27 Difficulty swallowing 28 4802737 R13.10 08/26 contpredni sone 40 mg po [...] as it is too big Chronic pain 40692892 G8 9.29 followed by pain management herecontga bapentin 100 mg po bidoxycodo ne 10 mg qid for painceleco xib 200 mg BIDAPAP 650 mg TID and q 4 hrs prn (NTE 3000 mg/d),Cont inue fall precaution s.Monitor for safety. Hypercholesterolemia 136 42433 E78.2 Continueat orvastatin 20 mg qdfenofibr ate 145 mg qdvascepa 2 g BID,ASA 81 mg qd.Monitor labs as outpt.lipi d profile to assess need for all meds above 08/27 [id number] Sonja Gibbs NP [address] [place] [address] 09/09/2024 12:10:04 09/14/2024 08:43:09 Spinal stenosis of lumbar region 91280597 M48.062 With chronic back pain and weakness [...] rec for minimally invasive spine center at [facility] appt 08/0907/29/24 [facility] spine [facility] sport with rec:neuros urgery [...] of c3 to the superior endplate of c5.[facility] sent pt referral:rich rios was rec for minimally invasive spine center at [facility] appt 08/09 08/04 referral to [facility] ordered as recommende d with MRI results back today 08/04 from 07/30 08/09 awaiting consult from spine center08/11 fu appoint at minimally invasive spine center to discuss options08/07 Dr Aleisha padilla (neurosurg [place]) dc' [facility] spine center with Dr. [...] meds see below 09/09 followed up with [facility], cont with pt/ot and monitor, ? fu in 6 weeks contremain s barrington lift at this timeContin ue fall precaution s.Monitor for safety.Mon itor pain control see belowCeleb sandip remains on hold. 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 [id number] Prince Le MD [address] [address] 09/11/2024 11:45:11 09/14/2024 09:51:44 Difficulty swallowing 455220229 R13.12 speech to followmoni tor aspiration risk and need to further adjust diet Spinal mg nosis in cervical region 49662598 M48.02 underwent anterior cervical discectomy and fusion with good effectmoni tor sxupdate surgery with concerns Essential hypertension 65305422 I10 hydralazin e 25 mg tidlasix 40 mg qdnorvasc 2.5 mg qdbenazapr il 40 mg qdmonitor bp and need to titrate [id number] [facility] [address] 09/22/2024 08:30:03 09/24/2024 14:43:14 Spinal stenosis in cervical region 32061794 M48.02 underwent anterior cervical discectomy and fusion with good effect with increased rom to right shoulder and remains with bilateral lower ext weakness, but reports improved feelingmon itor sxpt ot eval and treatupdat e surgery with concerns Difficulty swallowing 28 8702212 R13.12 seems to be improving. speech to followmoni tor aspiration risk and need to further adjust diet Acute left otitis media 964080408 H66.92 pt is allergic to pcn3/19sta rt levaquin 750 mg po qd x 10 days with probioticm onitor Persistent cough 4033819 02 R05.3 pt with persistant resp cough for a few weeks and now with thick green sputumwill get cxr to ro pnaalready on abx above as ordered for otitis media, but may help with this alsomonito r vitals, temp and resp statusrobi tussin prnmucinex 600 mg po bid x 10 days [id number] Sonja Gibbs NP [facility] [address] [place] [address] 09/30/2024 09:47:39 10/04/2024 11:25:27 Persistent cough 402237946 R05.3 resolveddc robitussin prndc mucinex 600 mg po bid x 10 days Difficulty swallowing 28 3076234 R13.12 resolvedmo nitor aspiration risk and need to further adjust diet Acute left otitis media 970377112 H66.92 pt is allergic to pcncont levaquin 750 mg po qd x 10 days with probioticm onitor Spinal mg nosis in cervical region 89438585 M48.02 underwent anterior cervical discectomy and fusion with good effect with increased rom to right shoulder and remains with bilateral lower ext weakness, but reports improved feelingmon itor sxpt ot eval and treatupdat e surgery with concerns Essential hypertension 86548373 I10 bp on low side todaycont hydralazin e 25 mg tiddc norvasc 2.5 mg qdcont benazapril 40 mg qddecrease lasix to 20 mg po qdmonitor bp and need to titrate Spinal mg nosis of lumbar region 72811630 M48.062 With chronic back pain and weakness [...] rec for minimally invasive spine center at [facility] appt 23 07/29/24 [facility] spine and sport with rec:neuros urgery [...] of c3 to the superior endplate of c5.[facility] sent pt referral:rich rios was rec for minimally invasive spine center at [facility] appt 08/09 08/04 referral to [facility] ordered as recommende d with MRI results back today 08/04 from 07/30 08/09 awaiting consult from spine center2 fu appoint at minimally invasive spine center to discuss options08/07 Dr Aleisha padilla (neurosurg [place]) dc'/ [facility] spine center with Dr. [...] meds see below 09/09 followed up with [facility], cont with pt/ot and monitor, ? fu in 6 weeks 09/30 overall improving contremain s barrington lift at this timeContin ue fall precaution s.Monitor for safety.Mon itor pain control see belowCeleb sandip remains on hold. Chronic pain 55141951 G8 9.29 followed by pain management here and pt requests to dc tylcont3/2 7 increase gabapentin from 100 mg po bid to 200mg po bid3.27 dc APAP 650 mg TIDcontoxy codone 10 mg qid for paincont tyl 650 q 4 hrs prncont cyclobenza tutu 1 tab bidContinu e fall precaution s.Monitor for safety. Hypercholesterolemia 136 27561 E78.2 pt requests to dc vascepa, will cont other medsContin ueatorvast atin 20 mg qdfenofibr ate 145 mg qdASA 81 mg qd.Monitor labs as outpt.lipi d profile on 11/10/24 to eval Benign pro static hyperplasia without outflow obstruction 256866330 N40.0 In hx, with some issues with retention at times however none lately and will trial dc todaydc tamsulosin 0.4 mg qd. [id number] Sonja Gibbs NP [address] [address] 10/06/2024 16:43:50 10/08/2024 14:42:40 Spinal stenosis in cervical region 44787503 M48.02 underwent anterior cervical discectomy and fusion with good effect with increased rom to right shoulder and remains with bilateral lower ext weakness, but reports improved feelingmon itor sxpt ot eval and treatupdat e surgery with concerns Essential hypertension 28440748 I10 bp on low side today 84/50 [...] titrate Spinal mg nosis of lumbar region 82265318 M48.062 With chronic back pain and weakness [...] rec for minimally invasive spine center at [facility] appt 08/0907/29/24 [facility] spine and sport with rec:neuros urgery [...] of c3 to the superior endplate of c5.[facility] sent pt referral:rich rios was rec for minimally invasive spine center at [facility] appt 08/09 08/04 referral to [facility] ordered as recommende d with MRI results back today 08/04 from 07/30 08/09 awaiting consult from spine center08/11 fu appoint at minimally invasive spine center to discuss options08/07 Dr Aleisha padilla (neurosurg [place]) dc' [facility] spine center with Dr. [...] meds see below 09/09 followed up with [facility], cont with pt/ot and monitor, ? fu in 6 weeks 09/30 overall improving 4/2 cont above care contremain s barrington lift at this timeContin ue fall precaution s.Monitor for safety.Mon itor pain control see belowCeleb sandip remains on hold. Chronic pain 95335573 G8 9.29 followed by pain management contoxycod one 10 mg qid for paincont tyl 650 q 4 hrs prncont cyclobenza tutu 10mg 1 tab bidContinu e fall precaution s.Monitor for safety. [id number] Sonja Gibbs NP [address] [address] 10/07/2024 08:31:54 10/08/2024 14:57:59 Essential hypertension 70436693 I10 bp on low side x2 days 82/60 today manualuncl ear why so low with [...] BELOW Spinal mg nosis in cervical region 19139269 M48.02 underwent anterior cervical discectomy and fusion with good effect with increased rom to right shoulder and remains with bilateral lower ext weakness, but reports improved feelingmon itor sxpt ot eval and treatupdat e surgery with concerns Spinal mg nosis of lumbar region 54065403 M48.062 With chronic back pain and weakness [...] rec for minimally invasive spine center at [facility] appt 08/0907/29/24 [facility] spine and sport with rec:neuros urgery [...] of c3 to the superior endplate of c5.[facility] sent pt referral:rich rios was rec for minimally invasive spine center at [facility] appt 08/09 08/04 referral to [facility] ordered as recommende d with MRI results back today 08/04 from 07/30 08/09 awaiting consult from spine center08/11 fu appoint at minimally invasive spine center to discuss options08/07 Dr Aleisha padilla (neurosurg [place]) dc' [facility] spine center with Dr. [...] meds see below 09/09 followed up with [facility], cont with pt/ot and monitor, ? fu in 6 weeks 09/30 overall improving 4/2 cont above care, with low bp see above contremain s barrington lift at this timeContin ue fall precaution s.Monitor for safety.Mon itor pain control see belowCeleb sandip remains on hold. Chronic pain 87182444 G8 9.29 followed by pain management contoxycod one 10 mg qid for paincont tyl 650 q 4 hrs prncont cyclobenza tutu 10mg 1 tab bid , hold for sbp <100Contin ue fall precaution s.Monitor for safety. Low blood pressure 70548 003 R03.1 284629 see above without known sourceA DDEDUM SEND TO er FOR SEPSIS WITH UNKNOWN SOURCE OF INFECTION Health Concerns Section Related Observation LastModified by Organization Detai ls LastModified Time None Recorded Concern Status LastModified by Organization Details LastModified Time None Recorded Advance Directives Directive Y: FULL CODE no dialysis and okay to use nutrition-use hydration Payers Insurance Date Sequence Insurance Name Policy Number Policy Richardson Covered Member ID Richardson Member ID Guarantor Name 05/21/2024 1 [employer] [facility] (HMO[facility] Cab[facility] [id number] Carlos Cabrera 05/21/2024 1 [place] [facility] Carlos Cabrera [id number] Carlos Cabrera 05/21/2024 1 [place] B[place] [employer] Carlos Cabrera [id number] Carlos Cabrera 05/21/[address] [facility] ELIGIBLE [facility]MEDICARE REPLACEMENT/AD VANTAGE - HMO) Carlos Cabrera [id number] Carlos Cabrera 12/14/2024 1 [facility] - DOS ON OR AFTER 2022 - MEDICARE ADVANTAGE [place] (MEDICARE REPLACEMENT/AD VANTAGE - PPO) Carlos Cabrera [id number] Carlos Cabrera Notes Date Note Type Note Provider Name and Address Organization Details Recorded Time 09/11/2024 text/html Patient is a 68 yo male resident due for routine rounding visit. Patient recently underwent anterior cervical discectomy and fusion with good effect. PMH significant for htn, dm, chf Prince Le MD [address] [place] [address], [address], [place], [address], [facility] - [employer] [facility] 09/11/2024 11:52:10 09/22/2024 text/html Pt is seen for an acute visit. Carlos is a 68 yo [...] is better in general. Sonja Gibbs NP [address] [place] [address], [address], [place], [address], [employer] 09/22/2024 10:55:29 09/30/2024 text/html Pt is seen for an acute visit. Pt is a 68 yo [...] to lower extremities today. Sonja Gibbs NP [address], [address], [place], [address], [employer] 09/30/2024 10:12:58 10/06/2024 text/html Pt is seen for an acute visit. He is seen for low [...] Meds adjusted accordingly. Sonja Gibbs NP [address], [address], [place], [address], [employer] 10/06/2024 18:02:57 10/07/2024 text/html Pt is seen for an acute visit. Carlos is seen today for [...] remains in 80s Sonja Gibbs NP [address], [address], [place], [address], [facility] - [facility] 10/07/2024 13:39:06
--- OUTSIDE RECORDS SUMMARY | 2025-04-01 14:46 | XMS_ITS | Encounter Summary ---
Author Organization [facility] Address [address] [place] [address] Care Team Providers Care Data Capture Clerk Name Role Phone Tram Álvarez MD Primary Care Provider [phone] Encounter Details Date Type Department Care Team (Late st Contact Info) Description 11/11/2024 Lab Requisition [facility] - Main Lab [address] [place] [address] Preeti Lujan MD [address] [phone] Chronic kidney disease, unspecified Social History Tobacco [...] LAB CHEMISTRY METHOD 11/11/2024 11:32 AM EDT [facility] Potassium 4.2 3.5 - 5.5 mmol/L LAB CHEMISTRY METHOD 11/11/2024 11:32 AM EDT [facility] Chloride 110 96 - 110 mmol/L LAB CHEMISTRY METHOD 11/11/2024 11:32 AM [facility] CO2 22 21 - 32 mmol/L LAB CHEMISTRY METHOD 11/11/2024 11:32 AM [facility] Anion Gap 9 3 - 11 LAB CHEMISTRY METHOD 11/11/2024 11:32 AM [facility] Glucose 177(H) 70 - 100 mg/dL LAB CHEMISTRY METHOD 11/11/2024 11:32 AM [facility] BUN 20 5 - 25 mg/dL LAB CHEMISTRY METHOD 11/11/2024 11:32 AM [facility] Creatinine 0.67(L) 0.70 - 1.30 mg/dL LAB CHEMISTRY METHOD 11/11/2024 11:32 AM [facility] eGFR 101 >=60 mL/min/1. 73m2 LAB CHEMISTRY METHOD 11/11/2024 11:32 AM [facility] Comment:Calculation based on the Chronic Kidney Disease Epidemiology Collaboration (CKD-EPI) equation refit without adjustment for race. BUN/Creatinine Ratio 29.9 LAB CHEMISTRY METHOD 11/11/2024 11:32 AM [facility] Calcium 8.7 8.5 - 10.5 mg/dL LAB CHEMISTRY METHOD 11/11/2024 11:32 AM [facility] Blood Venous blood specimen / Unknown Venipuncture / Unknown 11/11/2024 6:41 AM EDT 11/11/2024 9:11 AM EDT us Preeti Lujan MD LAB BLOOD ORDERABLES Fin al Result [facility] [address] [place] [address], * (ABNORMAL) Complete blood count (11/11/2024 6:41 AM EDT) WBC 8.1 4.8 - 10.8 K/mcL LAB HEMETOLOGY METHOD 11/11/2024 10:28 AM [facility] RBC 3.80(L) 4.50 - 5.50 M/mcL LAB HEMETOLOGY METHOD 11/11/2024 10:28 AM [facility] Hemoglobin 11.5(L) 13.5 - 17.5 g/dL LAB HEMETOLOGY METHOD 11/11/2024 10:28 AM [facility] Hematocrit 35.8(L) 42.0 - 54.0 % LAB HEMETOLOGY METHOD 11/11/2024 10:28 AM [facility] MCV 93.2 79.0 - 98.0 FL LAB HEMETOLOGY METHOD 11/11/2024 10:28 AM [facility] MCH 29.9 27.0 - 32.0 pcg LAB HEMETOLOGY METHOD 11/11/2024 10:28 AM [facility] MCHC 32.1 32.0 - 37.0 g/dL LAB HEMETOLOGY METHOD 11/11/2024 10:28 AM [facility] RDW 16.4(H) 11.0 - 15.0 % LAB HEMETOLOGY METHOD 11/11/2024 10:28 AM [facility] Platelets 314 130 - 400 K/mcL LAB HEMETOLOGY METHOD 11/11/2024 10:28 AM [facility] MPV 12.3(H) 7.0 - 11.0 FL LAB HEMETOLOGY METHOD 11/11/2024 10:28 AM [facility] NRBC 0.0 <1.0 % LAB HEMETOLOGY METHOD 11/11/2024 10:28 AM [facility] NRBC Absolute 0.00 <0.10 K/mcL LAB HEMETOLOGY METHOD 11/11/2024 10:28 AM EDT [facility] Blood Venous blood specimen / Unknown Venipuncture / Unknown 11/11/2024 6:41 AM EDT 11/11/2024 9:11 AM EDT us Preeti Lujan MD LAB BLOOD ORDERABLES Fin al Result [facility] [address] [place] [address], documented in this encounter Visit Diagnoses Diagnosis Chronic kidney disease, unspecified documented in this encounter Care Teams Data Capture Clerk Relationship Specialty Start Date End Date Tram Álvarez MD 2 [facility] , [address] Physician Associ D/B/A: [facility] [place], [place] PCP - General Internal Medicine 03/30/18 documented as of this encounter
--- OUTSIDE RECORDS SUMMARY | 2025-04-01 14:46 | XMS_ITS | Encounter Summary ---
Author Organization [facility] Address [address] [place] [address] Care Team Providers Care Veneer Taping Machine Operator Name Role Phone Tram Álvarez MD Primary Care Provider [phone] Encounter Details Date Type Department Care Team (Late st Contact Info) Description 09/16/2024 Lab Requisition [facility] - Main Lab [address] [place] [address] Prince Le MD 38 [facility] [address] [place], [address] Type 2 diabetes mellitus without complications [...] mg/dL LAB CHEMISTRY METHOD 09/17/2024 11:32 AM [facility] Blood Venous blood specimen / Unknown Venipuncture / Unknown 09/17/2024 8:06 AM EDT 09/17/2024 10:22 AM EDT us Prince Le MD LAB BLOOD ORDERABLES Final Resul t [facility] [address] [place] [address], [place] [phone] * (ABNORMAL) Comprehensive metabolic panel (09/17/2024 8:06 AM EDT) Sodium 139 133 - 145 mmol/L LAB CHEMISTRY METHOD 09/17/2024 11:27 AM [facility] Potassium 4.6 3.5 - 5.5 mmol/L LAB CHEMISTRY METHOD 09/17/2024 11:27 AM [facility] Chloride 103 96 - 110 mmol/L LAB CHEMISTRY METHOD 09/17/2024 11:27 AM [facility] CO2 30 21 - 32 mmol/L LAB CHEMISTRY METHOD 09/17/2024 11:27 AM [facility] Anion Gap 6 3 - 11 LAB CHEMISTRY METHOD 09/17/2024 11:27 AM [facility] Glucose 93 70 - 100 mg/dL LAB CHEMISTRY METHOD 09/17/2024 11:27 AM [facility] BUN 21 5 - 25 mg/dL LAB CHEMISTRY METHOD 09/17/2024 11:27 AM [facility] Creatinine 0.97 0.70 - 1.30 mg/dL LAB CHEMISTRY METHOD 09/17/2024 11:27 AM [facility] eGFR 85 >=60 mL/min/1. 73m2 LAB CHEMISTRY METHOD 09/17/2024 11:27 AM [facility] Comment:Calculation based on the Chronic Kidney Disease Epidemiology Collaboration (CKD-EPI) equation refit without adjustment for race. BUN/Creatinine Ratio 21.6 LAB CHEMISTRY METHOD 09/17/2024 11:27 AM [facility] Calcium 9.0 8.5 - 10.5 mg/dL LAB CHEMISTRY METHOD 09/17/2024 11:27 AM [facility] AST (SGOT) 20 10 - 42 unit/L LAB CHEMISTRY METHOD 09/17/2024 11:27 AM [facility] ALT (SGPT) 19 10 - 60 unit/L LAB CHEMISTRY METHOD 09/17/2024 11:27 AM [facility] Alkaline Phosphatase 67 42 - 121 unit/L LAB CHEMISTRY METHOD 09/17/2024 11:27 AM [facility] Total Protein 6.1 6.0 - 8.0 g/dL LAB CHEMISTRY METHOD 09/17/2024 11:27 AM [facility] Albumin 2.8(L) 3.2 - 5.0 g/dL LAB CHEMISTRY METHOD 09/17/2024 11:27 AM [facility] Total Bilirubin 0.4 0.0 - 1.4 mg/dL LAB CHEMISTRY METHOD 09/17/2024 11:27 AM [facility] Blood Venous blood specimen / Unknown Venipuncture / Unknown 09/17/2024 8:06 AM EDT 09/17/2024 10:22 AM EDT us Prince Le MD LAB BLOOD ORDERABLES Final Resul t [facility] [address] [place] [address], * (ABNORMAL) Complete blood count (09/17/2024 8:06 AM EDT) WBC 9.2 4.8 - 10.8 K/mcL LAB HEMETOLOGY METHOD 09/17/2024 10:35 AM [facility] RBC 3.80(L) 4.50 - 5.50 M/mcL LAB HEMETOLOGY METHOD 09/17/2024 10:35 AM [facility] Hemoglobin 11.3(L) 13.5 - 17.5 g/dL LAB HEMETOLOGY METHOD 09/17/2024 10:35 AM [facility] Hematocrit 35.1(L) 42.0 - 54.0 % LAB HEMETOLOGY METHOD 09/17/2024 10:35 AM [facility] MCV 93.6 79.0 - 98.0 FL LAB HEMETOLOGY METHOD 09/17/2024 10:35 AM [facility] MCH 30.1 27.0 - 32.0 pcg LAB HEMETOLOGY METHOD 09/17/2024 10:35 AM [facility] MCHC 32.2 32.0 - 37.0 g/dL LAB HEMETOLOGY METHOD 09/17/2024 10:35 AM [facility] RDW 17.5(H) 11.0 - 15.0 % LAB HEMETOLOGY METHOD 09/17/2024 10:35 AM [facility] Platelets 352 130 - 400 K/mcL LAB HEMETOLOGY METHOD 09/17/2024 10:35 AM [facility] MPV 11.5(H) 7.0 - 11.0 FL LAB HEMETOLOGY METHOD 09/17/2024 10:35 AM [facility] NRBC 0.0 <1.0 % LAB HEMETOLOGY METHOD 09/17/2024 10:35 AM [facility] NRBC Absolute 0.00 <0.10 K/mcL LAB HEMETOLOGY METHOD 09/17/2024 10:35 AM [facility] Blood Venous blood specimen / Unknown Venipuncture / Unknown 09/17/2024 8:06 AM EDT 09/17/2024 10:22 AM EDT us Prince Le MD LAB BLOOD ORDERABLES Final Resul t [facility] [address] [place] [address], documented in this encounter Visit Diagnoses Diagnosis Type 2 diabetes mellitus without complications (CMS/HCC V24, CMS/HCC V28) documented in this encounter Care Teams Veneer Taping Machine Operator Relationship Specialty Start Date End Date Tram Álvarez MD 2 [facility] , [address] Physician Associ D/B/A: [facility] [place], [place] PCP - General Internal Medicine 03/30/18 documented as of this encounter
--- OUTSIDE RECORDS SUMMARY | 2025-04-01 14:46 | XMS_ITS | Encounter Summary ---
Author Organization [facility] Address [address] [place] [address] Care Team Providers Care Overlay Operator Name Role Phone Tram Álvarez MD Primary Care Provider [phone] Encounter Details Date Type Department Care Team (Late st Contact Info) Description 03/01/2025 Lab Requisition [facility] - Main Lab [address] [facility] [place] [address] Preeti Lujan MD [address] [phone] Essential (primary) hypertension Social History Tobacco Use [...] CHEMISTRY METHOD 03/01/2025 11:14 AM EDT [facility] Potassium 4.6 3.5 - 5.5 mmol/L LAB CHEMISTRY METHOD 03/01/2025 11:[address] [facility] Chloride 112(H) 96 - 110 mmol/L LAB CHEMISTRY METHOD 03/01/2025 11:[address] [facility] CO2 25 21 - 32 mmol/L LAB CHEMISTRY METHOD 03/01/2025 11:[address] [facility] Anion Gap 4 3 - 11 LAB CHEMISTRY METHOD 03/01/2025 11:[address] [facility] Glucose 135(H) 70 - 100 mg/dL LAB CHEMISTRY METHOD 03/01/2025 11:[address] [facility] BUN 25 5 - 25 mg/dL LAB CHEMISTRY METHOD 03/01/2025 11:[address] [facility] Creatinine 0.76 0.70 - 1.30 mg/dL LAB CHEMISTRY METHOD 03/01/2025 11:[address] [facility] eGFR 97 >=60 mL/min/1. 73m2 LAB CHEMISTRY METHOD 03/01/2025 11:[address] [facility] Comment:Calculation based on the Chronic Kidney Disease Epidemiology Collaboration (CKD-EPI) equation refit without adjustment for race. BUN/Creatinine Ratio 32.9 LAB CHEMISTRY METHOD 03/01/2025 11:[address] [facility] Calcium 8.5 8.5 - 10.5 mg/dL LAB CHEMISTRY METHOD 03/01/2025 11:[address] [facility] Blood Venous blood specimen / Unknown Venipuncture / Unknown 03/01/2025 6:05 AM EDT 03/01/2025 8:40 AM EDT us Preeti Lujan MD LAB BLOOD ORDERABLES Fin al Result [facility] [address] [place] [address], documented in this encounter Visit Diagnoses Diagnosis Essential (primary) hypertension Unspecified essential hypertension documented in this encounter Care Teams Overlay Operator Relationship Specialty Start Date End Date Tram Álvarez MD 2 [facility] , [address] Physician Associ D/B/A: [facility] JAS Duque PCP - General Internal Medicine 03/30/18 documented as of this encounter
--- OUTSIDE RECORDS SUMMARY | 2025-04-01 14:46 | XMS_ITS | Clinical Summary ---
Author Organization [facility] Address [address] [place] [address] Care Team Providers Care Crusher Operator Name Role Phone Tram Royal MD [...] age to complete this topic Care Teams Crusher Operator Relationship Specialty Start Date End Date Tram Royal MD 2 [facility] , [address] [facility] Physician Associ D/B/A: [facility] [place] [address] PCP - General Internal Medicine 03/30/18
--- OUTSIDE RECORDS SUMMARY | 2025-04-01 14:46 | XMS_ITS | Encounter Summary ---
Author Organization [facility] Address [address] [place] [address] Care Team Providers Care Dictaphone Transcriber Name Role Phone Tram Álvarez MD Primary Care Provider [phone] Encounter Details Date Type Department Care Team (Late st Contact Info) Description 11/09/2024 Lab Requisition [facility] - Main Lab [address] [facility] [place] [address] Prince Le MD 38 [facility] [address] [place], [address] Hyperlipidemia, unspecified Social History Tobacco Use [...] unspecified documented in this encounter Care Teams Dictaphone Transcriber Relationship Specialty Start Date End Date Tram Álvarez MD [address] [place] [address] , [address] [facility] Physician Associ D/B/A: [facility] [place], [place] PCP - General Internal Medicine 03/30/18 documented as of this encounter
--- OUTSIDE RECORDS SUMMARY | 2025-04-01 14:46 | XMS_ITS | Clinical Summary ---
Author Organization [facility] Address [address] [place] [address] Care Team Providers Care Sanitation Worker Hosing Machinery Name Role Phone Sade Dykes PA-C Primary Care Provider [phone] Source Comments PLEASE NOTE, if this patient [...] 60 Tab 0 12/01/19 14 Active Acidophilus-Pectin, [place] 25 million-100 cell-mg tabIndications:Dive rticulosis Take 1 tablet by mouth 2 (two) times daily. As directed by core filer 100 tablet 3 01/31/20 14 Active benazepril [...] 11/30/2013 Overview (11/30/2013): Treated by Dr. Shayan RCOA Diabetes mellitus type 2, uncontrolled 3 Essential [...] Plan of Treatment Not on file Insurance [facility] D[facility]AL [facility] DENTAL [employer] Care Teams Sanitation Worker Hosing Machinery Relationship Specialty Start Date End Date Sade Dykes PA-C [address] [place] [address] [facility] - General 04/14/13
[2025-05-05 08:40] VITALS: BMI 30.4
[2025-05-12] VITALS (14 sets, daily range): BP systolic 126–170; BP diastolic 71–98; PULSE 76–96; RESP 13–20; TEMP 36.1–36.6; O2SAT 90–97; BMI 30.5
--- NOTE | ~2025-05-12 | FL_ITS ---
EXAMINATION: FLUOROSCOPY ONLY CLINICAL INFORMATION: T9-10 decompression COMPARISON: MR thoracic spine 12/14/2024 TECHNIQUE: Fluoroscopy time: 15 seconds DAP: 7 mgy Images: 2 FINDINGS: Fluoroscopy the operating room. 2 images demonstrate surgical hardware projected posterior to the thoracic spine. FL/FL guidance in OR IMPRESSION: Fluoroscopy provided for surgery. See surgical report for details.. Electronically signed by: Monster Spangler MD 05/13/2025 10:43 AM ALFRED
[2025-05-12 11:10] LABS: Glucose, Whole Blood 184 mg/dL (60-115)
[2025-05-12] MEDS: Lactated Ringers 1,000 ML 100 ML IVCONT (11:15)
--- NOTE | 2025-05-12 12:37 | HO.ANESPROP2 ---
Documented by User: Celsa Brown NP 05/10/25 09:53 HPI - Anesthesia Eval Consult details Narrative: Pending LE Dopplar to r/o DVT d/t bed bound 69yo M for T9-T10 Thoracic Decompression SNF Resident / WC bound s/p ACDF 08/2024 with ETT 7.5 - no issues with anesthesia [place] [facility] [place]: Pt admitted to ICU with acute hypoxemic respiratory failure with sepsis and related to pneumonia. Patient was markedly hemodynamically unstable at that time and require pressor support. Due to that he underwent an echocardiogram which had shown moderately to severely reduced LV ejection fraction at 30-35% with multiple wall motion abnormality concerning for either LAD territory infarct or stress-induced cardiomyopathy. Patient had no further workup or follow-up or cardiac consultation during the hospitalization. Patient EKGs in August which appear to showed normal sinus rhythm with normal EKG. Subsequent EKGs in October showed possible inferior infarct as well as anterolateral infarct by Q-waves. EKGs done today as a preop evaluation shows normal sinus rhythm with incomplete right bundle-branch block with anterolateral infarct as well as possible inferior infarct. Repeat ECHO 03/2025 with Normalized LV function could represent most likely stress-induced cardiomyopathy. Nuc Stress 03/2025 equivocal for mild intensity basal and mid ischemia. [place] [facility] [place]. Last office visit 04/2025. Stable with addition of losartan. PMFSH Active Problems Active Problems: All Active Problems Leg swelling (Acute) Thoracic myelopathy (Acute) Paraparesis (Acute) H/O cervical spine surgery (Acute) Cervical myelopathy (Acute) Wheelchair fitting or adjustment (Acute) Lumbar degenerative disc disease (Acute) Varicose veins of both lower extremities with inflammation (Acute) Right arm weakness (Acute) Physical exam (Acute) Right shoulder pain (Acute) Neck pain (Acute) Anasarca (Acute) Edema of both legs (Acute) Wheelchair dependent (Acute) Lymphedema (Acute) Encounter for wheelchair assessment (Acute) Right arm weakness (Acute) Urinary incontinence (Acute) Multiple falls (Acute) Chronic GERD (Acute) Hyperlipidemia LDL goal <70 (Acute) Left hand pain (Acute) Obesity (BMI 30-39.9) (Acute) Status post cholecystectomy (Acute) Abnormal gallbladder ultrasound (Acute) Hospital discharge follow-up (Acute) Right upper quadrant abdominal pain (Acute) Carpal tunnel syndrome of left wrist (Acute) Low vitamin D level (Acute) Paresthesia of upper extremity (Acute) Right carpal tunnel syndrome (Acute) CKD (chronic kidney disease) stage 2, GFR 60-89 ml/min (Acute) Rupture of left quadriceps tendon (Acute) Status post total knee replacement, left (Acute) Preoperative cardiovascular examination (Acute) Abnormal EKG (Acute) Osteoarthritis of left knee (Acute) Microalbuminuria (Acute) Diabetic neuropathy associated with type 2 diabetes mellitus (Acute) Arthritis of both knees (Acute) Pre-op evaluation (Acute) Numbness and tingling in right hand (Acute) Essential hypertension (Acute) Knee osteoarthritis (Acute) Mild recurrent major depression (Acute) Mixed hyperlipidemia (Acute) Right shoulder pain (Acute) Right knee pain (Acute) Left knee pain (Acute) Proteinuria (Acute) Diabetic polyneuropathy associated with type 2 diabetes mellitus (Acute) Hypertriglyceridemia (Acute) Obesity due to excess calories (Acute) Lumbar stenosis (Acute) Past Medical History Medical History (Updated 03/31/25 @ 10:09 by JIM Moreno) Osteoarthritis Depression Polyneuropathy GERD (gastroesophageal reflux disease) Acute cholecystitis due to biliary calculus Numbness and tingling in right hand Numbness and tingling in left hand Essential hypertension Diabetes mellitus Knee osteoarthritis Mild recurrent major depression Mixed hyperlipidemia Right shoulder pain Right knee pain Left knee pain CKD (chronic kidney disease), stage III Low back pain Multiple falls Syncope DAVINA (acute kidney injury) Obesity due to excess calories Lumbar spondylosis Proteinuria Arthritis Hypertriglyceridemia Hypertension Diabetic polyneuropathy associated with type 2 diabetes mellitus Type 2 diabetes mellitus with other diabetic kidney complication Lumbar stenosis Family History Family History Father Medical history unknown Mother Hypertension Maternal Grandmother Medical history unknown Family history of problems with anesthesia: No Surgical History Surgical History (Updated 05/05/25 @ 08:29 by Jessie Person RN) Hx of cervical spine surgery Hx of carpal tunnel repair History of cholecystectomy (09/19/23) History of surgery on lower extremity History of total left knee replacement (TKR) S/P evacuation of hematoma Hx of cataract surgery History of lumbar surgery Hx of eye surgery History of back surgery History of Problems with Anesthesia: No Social History Social History Household Members: None Household Members Other:: self Housing: Assisted Living Facility Housing Other:: currently at [facility] Are you a primary direct care worker to a significant other at home: No Do you presently have visiting nurse or other home services: No Alcohol intake: former Comment: bedbound Patient Tobacco Use Status: Former Tobacco user Tobacco use type: Cigarette Years Smoked: 25 e-Cigarette/Vaping Use: Never Used Second Hand Smoke Exposure: No Use of substances other than those prescribed or required for medical reasons: No Have you been hit, kicked, punched, or otherwise hurt by someone within the past year? If so, by whom?: No Are you DNR?: No Advance Directives: No Advance Directives Information Provided: Yes Advance Directives on File: No Advance Directives Date on File: 05/12/23 service: Yes Current occupational status: disabled Cognitive needs: Yes (walker) Hearing needs: No Vision needs: Yes (reading glasses) Meds Allergies Allergy/AdvReac Type Severity Reaction Status Date / Time Penicillins (PENICILLINS) Allergy Severe RASH Verified 04/12/25 09:26 jay pepper Allergy Intermediate Rash Verified 04/12/25 09:26 pepper (genus Capsicum) AdvReac Intermediate rashes Verified 04/12/25 09:26 Home Medications ?Medication ?Instructions ?Recorded ?Confirmed ?Last Taken ?Type latanoprost 0.005 % eye drops 1 drp ophthalmic (eye) BEDTIME 11/07/20 05/10/25 09/17/23 History aspirin 81 mg tablet,delayed 81 mg PO DAILY@0805/02/24 05/10/25 04/27/25 History release atorvastatin 20 mg tablet 20 mg PO DAILY@199905/02/24 05/10/25 05/01/24 20:00 History cyclobenzaprine 10 mg tablet 10 mg PO BID muscle spasm 05/02/24 05/10/25 05/01/24 20:00 History fenofibrate nanocrystallized 145 145 mg PO DAILY@0800 05/02/24 05/10/25 05/02/24 08:00 History mg tablet lidocaine 5 % topical patch 1 patch topical DAILY 05/19/24 05/10/25 Unknown History bisacodyl 10 mg rectal suppository 10 mg AR 2XW PRN Constipation 08/18/24 05/10/25 Unknown History gabapentin 100 mg capsule 200 mg PO BID 08/18/24 05/10/25 Unknown History sennosides 8.6 mg capsule (senna) 17.2 mg PO BID PRN Constipation 08/18/24 05/10/25 Unknown History sodium phosphates 19 gram-7 118 ml AR DAILY PRN Constipation 10/07/24 05/10/25 Unknown History gram/118 mL enema (Fleet Enema) calcium carbonate 1,000 mg PO Q4-5H PRN Acid Reflux 01/24/25 05/10/25 Unknown History docusate sodium 100 mg tablet 300 mg PO DAILY 01/24/25 05/10/25 Unknown History metformin 500 mg tablet 500 mg PO BID 01/24/25 05/10/25 Unknown History melatonin 3 mg capsule 3 mg PO BEDTIME 04/12/25 05/10/25 Unknown History bisacodyl 5 mg tablet 5 mg PO 2XW 05/10/25 05/10/25 Unknown History butenafine 1 % topical cream 1 appl topical DAILY 05/10/25 05/10/25 Unknown History losartan 25 mg tablet 25 mg PO DAILY 05/10/25 05/10/25 Unknown History magnesium hydroxide 400 mg/5 mL 30 ml PO DAILY PRN Constipation 05/10/25 05/10/25 Unknown History oral suspension (Milk of Magnesia) oxycodone 10 mg tablet 10 mg PO Q8-10H PRN pain 05/10/25 05/10/25 Unknown History polyethylene glycol 3350 17 gram 17 g PO DAILY Constipation 05/10/25 05/10/25 Unknown History oral powder packet Exam Height,Weight and Vital Signs: Height 5 ft 8 in Weight 90.718 kg Pertinent Lab Results Pertinent Lab Results: Outside Labs 04/2025 BMP OK (BUN slight high) CBC OK (H&H slight low) Narrative Narrative: EKG 03/2025 EKGs shows normal sinus rhythm with incomplete right bundle-branch block with anterolateral Q-waves as well as inferior Q-waves ECHO 03/2025 Conclusions: - The left ventricular systolic function is normal. The calculated ejection fraction is 61% by biplane method. - There is no evidence of regional wall motion abnormalities. Findings Left Ventricle Normal left ventricular cavity size. There is mildly increased left ventricular wall thickness. The left ventricular systolic function is normal. The calculated ejection fraction is 61% by biplane method. There is no evidence of regional wall motion abnormalities. NM celia perf SPECT rest & str 03/2025 Impression: 1. Myocardial perfusion imaging study shows equivocal for mild intensity basal and mid ischemia 2. Gated LVEF is 72% 3. Transient ischemic dilatation not present Nondiagnostic changes on EKG. Assessment and Plan Final Anesthetic Review Family History of Problems with Anesthesia: No History of Problems with Anesthesia: No Documented by User: Janae Escobar DO 05/12/25 12:39 [facility] Past Medical History Medical History (Updated 03/31/25 @ 10:09 by JIM Moreno) Osteoarthritis Depression Polyneuropathy GERD (gastroesophageal reflux disease) Acute cholecystitis due to biliary calculus Numbness and tingling in right hand Numbness and tingling in left hand Essential hypertension Diabetes mellitus Knee osteoarthritis Mild recurrent major depression Mixed hyperlipidemia Right shoulder pain Right knee pain Left knee pain CKD (chronic kidney disease), stage III Low back pain Multiple falls Syncope DAVINA (acute kidney injury) Obesity due to excess calories Lumbar spondylosis Proteinuria Arthritis Hypertriglyceridemia Hypertension Diabetic polyneuropathy associated with type 2 diabetes mellitus Type 2 diabetes mellitus with other diabetic kidney complication Lumbar stenosis Family History Family History Father Medical history unknown Mother Hypertension Maternal Grandmother Medical history unknown Family history of problems with anesthesia: No Surgical History Surgical History (Updated 05/05/25 @ 08:29 by Jessie Person RN) Hx of cervical spine surgery Hx of carpal tunnel repair History of cholecystectomy (09/19/23) History of surgery on lower extremity History of total left knee replacement (TKR) S/P evacuation of hematoma Hx of cataract surgery History of lumbar surgery Hx of eye surgery History of back surgery History of Problems with Anesthesia: No Social History Social History Household Members: None Household Members Other:: self Housing: Assisted Living Facility Housing Other:: currently at [facility] Are you a primary direct care worker to a significant other at home: No Do you presently have visiting nurse or other home services: No Alcohol intake: former Comment: bedbound Patient Tobacco Use Status: Former Tobacco user Tobacco use type: Cigarette Years Smoked: 25 e-Cigarette/Vaping Use: Never Used Second Hand Smoke Exposure: No Use of substances other than those prescribed or required for medical reasons: No Have you been hit, kicked, punched, or otherwise hurt by someone within the past year? If so, by whom?: No Are you DNR?: No Advance Directives: No Advance Directives Information Provided: Yes Advance Directives on File: No Advance Directives Date on File: 05/12/23 service: Yes Current occupational status: disabled Cognitive needs: Yes (walker) Hearing needs: No Vision needs: Yes (reading glasses) Meds Allergies Allergy/AdvReac Type Severity Reaction Status Date / Time Penicillins (PENICILLINS) Allergy Severe RASH Verified 04/12/25 09:26 jay pepper Allergy Intermediate Rash Verified 04/12/25 09:26 pepper (genus Capsicum) AdvReac Intermediate rashes Verified 04/12/25 09:26 Home Medications ?Medication ?Instructions ?Recorded ?Confirmed ?Last Taken ?Type latanoprost 0.005 % eye drops 1 drp ophthalmic (eye) BEDTIME 11/07/20 05/10/25 09/17/23 History aspirin 81 mg tablet,delayed 81 mg PO DAILY@0800 05/02/24 05/10/25 04/27/25 History release atorvastatin 20 mg tablet 20 mg PO DAILY@199905/02/24 05/10/25 05/01/24 20:00 History cyclobenzaprine 10 mg tablet 10 mg PO BID muscle spasm 05/02/24 05/10/25 05/01/24 20:00 History fenofibrate nanocrystallized 145 145 mg PO DAILY@0800 05/02/24 05/10/25 05/02/24 08:00 History mg tablet lidocaine 5 % topical patch 1 patch topical DAILY 05/19/24 05/10/25 Unknown History bisacodyl 10 mg rectal suppository 10 mg AR 2XW PRN Constipation 08/18/24 05/10/25 Unknown History gabapentin 100 mg capsule 200 mg PO BID 08/18/24 05/10/25 Unknown History sennosides 8.6 mg capsule (senna) 17.2 mg PO BID PRN Constipation 08/18/24 05/10/25 Unknown History sodium phosphates 19 gram-7 118 ml AR DAILY PRN Constipation 10/07/24 05/10/25 Unknown History gram/118 mL enema (Fleet Enema) calcium carbonate 1,000 mg PO Q4-5H PRN Acid Reflux 01/24/25 05/10/25 Unknown History docusate sodium 100 mg tablet 300 mg PO DAILY 01/24/25 05/10/25 Unknown History metformin 500 mg tablet 500 mg PO BID 01/24/25 05/10/25 Unknown History melatonin 3 mg capsule 3 mg PO BEDTIME 04/12/25 05/10/25 Unknown History bisacodyl 5 mg tablet 5 mg PO 2XW 05/10/25 05/10/25 Unknown History butenafine 1 % topical cream 1 appl topical DAILY 05/10/25 05/10/25 Unknown History losartan 25 mg tablet 25 mg PO DAILY 05/10/25 05/10/25 Unknown History magnesium hydroxide 400 mg/5 mL 30 ml PO DAILY PRN Constipation 05/10/25 05/10/25 Unknown History oral suspension (Milk of Magnesia) oxycodone 10 mg tablet 10 mg PO Q8-10H PRN pain 05/10/25 05/10/25 Unknown History polyethylene glycol 3350 17 gram 17 g PO DAILY Constipation 05/10/25 05/10/25 Unknown History oral powder packet Exam Exam Date and Time: 05/12/25 1238 Height,Weight and Vital Signs: Height 5 ft 8 in Weight 90.718 kg Vital Signs Temperature 97 F 05/12/25 10:55 Pulse Rate 78 05/12/25 10:55 Respiratory Rate 20 05/12/25 10:55 Blood Pressure 150/71 H 05/12/25 10:55 Pulse Oximetry 96 05/12/25 10:55 Oxygen Delivery Method Room Air 05/12/25 10:55 Temperature 97 F 05/12/25 10:55 Pulse Rate 78 05/12/25 10:55 Respiratory Rate 20 05/12/25 10:55 Blood Pressure 150/71 H 05/12/25 10:55 Pulse Oximetry 96 05/12/25 10:55 Oxygen Delivery Method Room Air 05/12/25 10:55 Airway Mallampati Class: III TM Dist: <=3cm Neck ROM: Limited Loose/Missing/Broken Teeth: No (patient denies any loose or broken teeth) Heart: S1S2 Lungs: Diminished bilaterally Assessment and Plan Assessment Anesthesia Assessment: Anesthesia Plan Discussed and Chart Reviewed Final Anesthetic Review Family History of Problems with Anesthesia: No History of Problems with Anesthesia: No NPO: Yes ASA Class: III Final Preanesthetic Review: No Changes in Pt Med Stat, Meds/Allgs Chart Reviewed, Consent Obtained/Reviewed and Anes Risks/Benef Reviewed Patient Risk: Intermediate Procedure Risk: Intermediate Anesthetic Plan Anesthetic Plan: GA and Agree w/ Assess. and Plan Disposition: Standard PACU
--- NOTE | 2025-05-12 13:26 | P.HPSUR_ITS ---
Pre-Procedural Eval Section A - 24 Hr Update-Section A only Date of Service: 05/12/25 Section B - Complete if H&P > 30 days Chief Complaint: Other spondylosis with myelopathy, thoracic region Allergies: Allergies Allergy/AdvReac Type Severity Reaction Status Date / Time Penicillins (PENICILLINS) Allergy Severe RASH Verified 04/12/25 09:26 jay pepper Allergy Intermediate Rash Verified 04/12/25 09:26 pepper (genus Capsicum) AdvReac Intermediate rashes Verified 04/12/25 09:26 Review of Systems Sugical H&P ROS: Negative: Constitution, Cardiovascular, Respiratory, Neurologic al, Psychiatric, Hem-Onc, Allergic/Immunologic, Gastrointestinal, Genitourinary, Musculoskeletal, Integumentary, Endocrine and Eyes/Ears/Nose/Throat Exam Surgical H&P Exam: Normal: HEENT, Normal: Heart, Normal: Lungs, Normal: Extremities, Normal: Abdomen and Normal: Skin and Significant Findings: Neurological (paraparesis) Plan Diagnosis/Plan: Unchanged I have reviewed the history and physical and performed a pertinent physical examination on my patient. No changes have occurred unless specified. US legs negative for DVT. T9-T10 laminectomy Time Spent With Patient Time: Total time managing care of this patient today ____ minutes.
--- NOTE | 2025-05-12 16:02 | P.OP_ITS ---
Operative Note Operative Note Date of Service: 05/12/25 Narrative: Preoperative Diagnosis: Thoracic myelopathy Operation: T9-T10 Laminotomy, Partial facetectomy and foraminotomy with use of microscope Consent Informed Consent was obtained for this operation. I have explained the nature, purpose and benefits of the operation. I have discussed the risks and benefit of the operation including possible complications or adverse events with patient/family. Alternative(s) were discussed with the patient with their relative benefits and risks as well as the consequences of not accepting the operation were included in obtaining consent.. Surgeon: JOLEEN LIM MD, PHD Procedure Assisted By: JIM Moreno. Description of Procedure This 69-year-old male suffering from paraparesis. MRI shows severe spinal cord compression at T9-10 with myelomalacia.. The patient was offered a decompression these levels. The procedure complications were explained. The patient was consented. The patient was brought to the operating room and endotracheally intubated. The patient was turned in prone position on the Tim spine that. Prep and drape was done followed by timeout. Localizing needles were placed and with x-ray we were able to localize T10-T9 area. The T7-T8 disc was auto fused and a good radiological indicator that we were at the right level. A mid thoracic incision was made over the T9 T10 area followed by release of the paravertebral muscle bilaterally to expose the T10-T9 lamina and facet joints. An intraoperative x-ray was obtained to confirm the correct level again. The microscope was brought in. I took over the procedure. The high-speed drill was used to do a left T9-T10 laminotomy until flavum ligament was reached. A #1 Kerrison was used to expand the laminotomy near flush to the pedicles and to include a partial facetectomy. The flavum ligament was opened and to expose the underlying dura. A clear compression of the spinal cord was encountered consisting of bone and excessive ligament. A 1. And 2. Kerrison were used to further decompress the spinal cord over this trajectory. Were undercut and in this way I was able to reach the contralateral side as well. Extensive hemostasis was done. The microscope was removed. Hemostasis was done. The physician multimedia production assistant close the Incision in 2 layers. Steri-Strips were used to approximate incision. An OpSite with Tegaderm was used to cover the incision. All sponge needle counts were correct. Patient was extubated and transported in stable is to recovery room. Anesthesia: General Estimated Blood Loss (ml): 20 Complications: None Duration of Surgery: Under 60 Minutes Postoperative Plan: Discharge to home
--- NOTE | 2025-05-12 16:12 | P.DS_ITS ---
DS: Providers Provider Date of Service: 05/12/25 Date of discharge: 05/12/25 Primary care physician: Tram Álvarez MD DS: Summary Time Attestation Discharge Coordination Time (in mins): 12 Quality: Safe Use of Opioids Does Pt have an Active Cancer Diagnosis on the Problem List?: No Quality: Stroke Does the patient have a stroke diagnosis?: No Physical Exam Vital Signs: Vital Signs: Last Vital Signs Temp 97 F 05/12/25 10:55 Pulse 78 05/12/25 10:55 Resp 20 05/12/25 10:55 BP 150/71 H 05/12/25 10:55 Pulse Ox 96 05/12/25 10:55 O2 Del Method Room Air 05/12/25 10:55 BMI result Body Mass Index 30.5 DS: Data Data Completed and Pending Completed studies during hospitalization [Text1]: Procedures Inspection of Gallbladder, Percutaneous Endoscopic Approach (09/18/23) Introduction of Anesthetic Agent into Peripheral Nerves and Plexi, Percutaneous Approach (05/07/23) Introduction of Vasopressor into Peripheral Vein, Open Approach (10/07/24) Repair Left Upper Leg Tendon, Open Approach (05/07/23) Resection of Gallbladder, Open Approach (09/18/23) Labs on day of discharge: Laboratory Results - last 24 hr 05/12/25 11:07 POC Glucose 184 H Discharge Plan Discharge Patient Disposition: Home, Self-Care Referrals: Tram Royal MD [Primary Care Provider, Internal Medicine] - 1 Week Discharge Medications: Continued (DME) walker Misc See Rx Instructions .ROUTE .MEDSUPPLY Qty: 1 0RF Rx Instructions: As directed (DME) Ultra-Light Rollator Misc See Rx Instructions .ROUTE .MEDSUPPLY Qty: 1 0RF Rx Instructions: with seat (DME) sock aid See Rx Instructions .Route .MEDSUPPLY Qty: 1 0RF Rx Instructions: As directed (DME) leg induction coordination power engineer See Rx Instructions .Route .MEDSUPPLY Qty: 1 0RF Rx Instructions: As directed (DME) FreeStyle Tirso 14 Day Caldwell Misc See Rx Instructions .ROUTE .MEDSUPPLY Qty: 1 0RF Rx Instructions: As directed (DME) Shower Chair Misc See Rx Instructions .Route Qty: 1 0RF Rx Instructions: As directed (DME) Brace,wrist Misc See Rx Instructions .Route Qty: 1 0RF Rx Instructions: right hand wrist splint (DME) FreeStyle Tirso 2 Sensor Kit See Rx Instructions .Route Qty: 2 11RF Rx Instructions: As directed (DME) pen needle, diabetic 31 gauge x 5/16 needle See Rx Instructions subcut .MEDSUPPLY Qty: 200 4RF Rx Instructions: five times a day (DME) bed rail See Rx Instructions .Route .MEDSUPPLY Qty: 1 0RF Rx Instructions: As directed (DME) bedside commode Kit See Rx Instructions .Route Qty: 1 0RF Rx Instructions: As directed (DME) adult diapers pull-ups X-large See Rx Instructions .Route .MEDSUPPLY Qty: 240 11RF Rx Instructions: As directed (DME) wipes See Rx Instructions .Route .MEDSUPPLY Qty: 400 11RF Rx Instructions: As directed (DME) compr.stocking,knee,long,x-lrg Misc See Rx Instructions .Route Qty: 12 0RF Rx Instructions: As [id number] mmhg (DME) hospital bed Kit See Rx Instructions .Route Qty: 1 0RF Rx Instructions: As directed- full electric cholecalciferol (vitamin D3) 50 mcg (2,000 unit) tablet 50 mcg PO DAILY Qty: 90 0RF (DME) wheelchair electric See Rx Instructions .Route .MEDSUPPLY Qty: 1 0RF Rx Instructions: As directed latanoprost 0.005 % drops 1 drp ophthalmic (eye) BEDTIME Rx Instructions: 1 drop into both eyes gabapentin 100 mg capsule 200 mg PO BID bisacodyl 10 mg Suppository 10 mg CA 2XW PRN (Reason: Constipation) senna 8.6 mg Capsule 17.2 mg PO BID PRN (Reason: Constipation) metformin 500 mg Tablet 500 mg PO BID calcium carbonate 500 mg calcium (1,250 mg) Tablet 1,000 mg PO Q4-5H PRN (Reason: Acid Reflux) docusate sodium 100 mg Tablet 300 mg PO DAILY magnesium hydroxide [Milk of Magnesia] 400 mg/5 mL Suspension 30 ml PO DAILY PRN (Reason: Constipation) losartan 25 mg tablet 25 mg PO DAILY butenafine 1 % Cream 1 appl TOPICAL DAILY bisacodyl 5 mg Tablet 5 mg PO 2XW polyethylene glycol 3350 17 gram powder in packet 17 g PO DAILY oxycodone 10 mg tablet 10 mg PO Q8-10H PRN (Reason: pain) Rx Instructions: Partial Fill upon patient request. cyclobenzaprine 10 mg tablet 10 mg PO BID atorvastatin 20 mg tablet 20 mg PO DAILY@2000 fenofibrate nanocrystallized 145 mg tablet 145 mg PO DAILY@0800 Fleet Enema 19-7 gram/118 mL Enema 118 ml CA DAILY PRN (Reason: Constipation) Rx Instructions: if no BM & if bisacodyl supp ineffective (DME) blood pressure monitor Kit See Rx Instructions .Route Qty: 1 0RF Rx Instructions: As directed (DME) chair lift See Rx Instructions .Route .MEDSUPPLY Qty: 1 0RF Rx Instructions: As directed lidocaine 5 % adhesive patch,medicated 1 patch topical DAILY Rx Instructions: leave on most painful area for up to 12 hrs melatonin 3 mg capsule 3 mg PO BEDTIME Held aspirin 81 mg tablet,delayed release (DR/EC) 81 mg PO DAILY@0800 Hold Instructions: Resume on 05/15/25. Discharge Orders: Discharge Order (Routine); Ordered 05/12/25 Ordered By: Theron Bhat Diet: Advance to usual diet Activity on Discharge: As tolerated Activity Restrictions/Additional Instructions: After your spinal surgery we ask you to observe the following restrictions/guidelines: Activity: It is normal to feel some discomfort as you increase your activity, but that will improve with time. We ask you avoid heavy lifting or acitivities that cause pain. As a general rule, 8lbs is a safe limit for lifting right after surgery. Walk as much as you feel comfortable but not to exhaustion. You will feel extra tired the first few days after surgery. Stay well hydrated. It is OK to walk up and down stairs You may return to driving when you are off narcotics (such as vicodin, oxycodone, dilaudid, etc), and you are back to normal functional capacity. If you have any concerns please check with office before driving. Return to work is specific to each patient and each surgery, so please speak with your doctor/PA at first follow up. Please bring paperwork such as FMLA at that time if you need it filled out. Medications: Please hold your aspirin for 3 days after surgery. Please continue your prescribed oxycodone 10 mg. Call our clinic if you need to refill for this medication and can not get 1 through current prescribe her. We recommend you take 500mg Tylenol every 4 hours for the first week after surgery, if you do not have any liver issues and can tolerate this medication. Do not exceed 4,000mg daily. We also recommend you take Ibuprofen 600mg every 8 hours for the first week after surgery starting on post op day 1, if you do not have any kidney or sugar control issues and can tolerate this medication. Do not exceed 2,000mg daily. If you are on a narcotic, it is a good idea to take a stool softener such as colace or senna to avoid constipation If you take blood thinner such as aspirin, Plavix, Coumadin, Effient, Eliquis etc for conditions such as Afib, DVT, Pulmonary embolus, coronary disease, stents etc please speak with your surgeon about specific details as to when you can resume these medications. You can resume NSAIDs on post op day 1 (eg: Motrin, Naproxen, etc). Follow up: Please call the office, , after surgery to arrange a 3 week follow up for wound check. Wound Care: You may remove your dressing on the first day after surgery. ?You may ?leave open to air. Please do not remove the steri strips underneath. they will fall off on their own in one week. IT IS NORMAL FOR THE WOUND TO OOZE OR BE BLOODY FOR A FEW DAYS AFTER SURGERY. ?IF THIS HAPPENS JUST PLACE NEW DRESSING OVER IT TO AVOID STAINING CLOTHES. You may shower on post op day # 1 We ask that you do not let the water soak the wound. If it does get wet, just towel dry lightly. Please do not scrub your incision or place any type of chemical/ointment on the wound. No tub baths, pools or jacuzzis for one month. If you have any leaking or redness from your wound, or fevers, please call the office. Print Language: Yoruba
[2025-05-12] MEDS: oxyCODONE HCl Immed Release 5 MG TABLET PO (17:25)
--- NOTE | 2025-05-12 18:05 | PC.NURSE ---
RN [facility] Rn updated last vitals, pre and post op medications given. tolerating po fluids.
--- NOTE | 2025-05-12 19:19 | PC.NURSE ---
Transfer to SNF via ambulance Damien scheduled transport. RN to EMS report given. Patient awake conversing VSS
== END 2025-05-12 19:33 | disposition home or self-care (01) ==
PROVIDERS: PCP Internal Medicine; Visit Provider Neurological Surgery
PROC: (CPT 63046; principal; 2025-05-12 13:20)
DX: M47.14 Other spondylosis with myelopathy, thoracic region (principal); G95.29 Other cord compression; G82.20 Paraplegia, unspecified; Z99.3 Dependence on wheelchair; Z91.81 History of falling; K21.9 Gastro-esophageal reflux disease without esophagitis; I12.9 Hypertensive chronic kidney disease with stage 1 through stage 4 chronic kidney disease, or unspecified chronic kidney disease; E11.22 Type 2 diabetes mellitus with diabetic chronic kidney disease; N18.30 Chronic kidney disease, stage 3 unspecified; Z87.891 Personal history of nicotine dependence; Z79.82 Long term (current) use of aspirin; Z79.84 Long term (current) use of oral hypoglycemic drugs; Z79.899 Other long term (current) drug therapy; Z88.0 Allergy status to penicillin; Z98.890 Other specified postprocedural states; Z90.49 Acquired absence of other specified parts of digestive tract; Z96.652 Presence of left artificial knee joint
CPT/HCPCS: 63046; 82947; J0131; J1100; J2003; J2250; J2371; J2405; J2704; J3010; J3374

== ENCOUNTER → 2025-05-12 10:37 | Outpatient (BNV) | payer OTHER, SELFPAY | PROVIDERS: PCP Internal Medicine; Visit Provider Neurological Surgery | DX: M47.14 Other spondylosis with myelopathy, thoracic region (principal) | CPT/HCPCS: 63046; 99499 ==

== ENCOUNTER 2025-06-01 13:45 | Outpatient (AMB) | payer OTHER, SELFPAY ==
--- NOTE | 2025-06-01 14:16 | HO.SPINEOV ---
Intake Visit Reasons: 1st post op Intake Note: Mr. Cabrera is here today for his 1st post op. Principal Clerk Required: No Allergies Penicillins (PENICILLINS) Allergy (Severe, Verified 04/12/25 09:26) RASH jay pepper Allergy (Intermediate, Verified 04/12/25 09:26) Rash pepper (genus Capsicum) Adverse Reaction (Intermediate, Verified 04/12/25 09:26) rashes Assessment & Plan Assessment & Plan (1) S/P spinal surgery: Code(s): Z98.890 - Other specified postprocedural states Category: Surgical Plan Procedure: T9-T10 Laminotomy Carlos is a pleasant 69-year-old male who comes in today for his 1st postoperative visit after having a T9-T10 laminotomy completed by Dr. Isabel due to severe spinal cord compression in the thoracic spine. The patient is essentially immobile at baseline, and was brought in today from his rehabilitation facility via EMS. See previous office visit notes for specifics regarding this issue. He reports that essentially he feels very similar now as he did prior to surgery. We discussed how surgery to treat severe spinal cord compression can take time to produce meaningful results, and also again discussed how the overall goal of surgery is to stop symptom progression. He called his sister during this visit who asked some questions related to travel, as she would like him to visit her in [place] around the holidays. From a surgical perspective I see no reason why he is not able to travel at this time. Unfortunately the law office assistant who brought him to his visit today reported that he has essentially been bed-bound since his surgery. He has not been getting up out of bed or even sitting in his bedside chair. No new neurological deficits. The patient remains in the stretcher for the duration of this examination. I was able to help him sit forward with the assistance of the EMT staff, and remove the Steri-Strips that remained overlying his incision. His incision appears to be closed and well healing with no signs of erythema or drainage. He reports intact sensation of his bilateral lower extremities during sensation testing to light touch. (-) Babinski sign bilaterally. He is antigravity diffusely throughout his lower extremities, and is able to strength test to about 4/5 strength with knee extension and hip flexion. I do believe that Carlos is beginning to make meaningful progress given that his strength testing during examination today seems to be better than his last lower extremity examination completed by JIM Esquivel, during which it was reported that he had about 1-2/5 strength diffusely throughout his lower extremities. I would like to see him get up out of bed to his bedside chair at the very least with the meals while at his rehabilitation center, ideally he will be up out of bed more often than this. I will complete the paperwork that we need to fax back to his rehabilitation center stating that this needs to be the standard while he is there and healing from surgery. In addition to this, I would like him to follow up with us again in 6 weeks for his 2nd postop visit. This information was also relayed to his sister via phone. Theron Isabel MD,PhD [facility] Coding Level of Care Code Global (51467) Diagnoses S/P spinal surgery Z98.890
--- OUTSIDE RECORDS SUMMARY | 2025-06-01 16:52 | XMS_ITS | Encounter Summary ---
Author Organization [facility] Address [address] [place] [address] Care Team Providers Care Power Switchboard Operator Name Role Phone Tram Álvarez MD Primary Care Provider [phone] Encounter Details Date Type Department Care Team (Late st Contact Info) Description 11/11/2024 Lab Requisition [facility] - Main Lab [address] [place] [address] Shonda Brenner MD [address] [place] [phone] Unspecified abdominal pain Social History Tobacco Use [...] reflex microscopic (11/11/2024 12:00 AM EDT) Specific [place] Urine 1.014 1.003 - 1.030 LAB URINALYSIS - AUTOMATED METHOD 11/11/2024 11:33 AM EDT [facility] pH, Urine 7.0 5.0 - 8.0 pH LAB URINALYSIS - AUTOMATED METHOD 11/11/2024 11:33 AM [facility] Leukocytes, Urine Large(A) Negative LAB URINALYSIS - AUTOMATED METHOD 11/11/2024 11:33 AM [facility] Nitrite, Urine Negative Negative LAB URINALYSIS - AUTOMATED METHOD 11/11/2024 11:33 AM [facility] Protein, Urine Trace <=Trace mg/dL LAB URINALYSIS - AUTOMATED METHOD 11/11/2024 11:33 AM [facility] Glucose, Urine Negative Negative mg/dL LAB URINALYSIS - AUTOMATED METHOD 11/11/2024 11:33 AM [facility] Ketones, Urine Negative Negative mg/dL LAB URINALYSIS - AUTOMATED METHOD 11/11/2024 11:33 AM [facility] Urobilinogen, Urine 0.2 0.2 - 1.0 mg/dL LAB URINALYSIS - AUTOMATED METHOD 11/11/2024 11:33 AM [facility] Bilirubin, Urine Negative Negative LAB URINALYSIS - AUTOMATED METHOD 11/11/2024 11:33 AM [facility] Blood, Urine Negative Negative LAB URINALYSIS - AUTOMATED METHOD 11/11/2024 11:33 AM [facility] RBC, Urine 3.0 0 - 4 /HPF LAB URINALYSIS - AUTOMATED METHOD 11/11/2024 11:33 AM [facility] WBC, Urine 57.5(H) 0 - 4 /HPF LAB URINALYSIS - AUTOMATED METHOD 11/11/2024 11:33 AM [facility] Squamous Epithelial, Urine >100(H) 0 - 60 /LPF LAB URINALYSIS - AUTOMATED METHOD 11/11/2024 11:33 AM [facility] Bacteria, Urine Negative Negative /HPF LAB URINALYSIS - AUTOMATED METHOD 11/11/2024 11:33 AM EDT [facility] Hyaline Casts, Urine 2.0 0 - 3 /LPF LAB URINALYSIS - AUTOMATED METHOD 11/11/2024 11:33 AM EDT [facility] Urine Urine specimen obtained by clean catch procedure / Unknown Non-blood Collection / Unknown 11/11/2024 11/11/2024 9:44 AM EDT us Shonda Brenner MD LAB URINE ORDERABLES Final Resu lt Performing Organization Address [facility]/ZIP Co de Phone Number [facility] [address] [place] [address], [place] [phone] * Culture urine (11/11/2024 12:00 AM EDT) Culture, Urine <10,000 CFU/mL gram negative bacilli, insignificant count, no further workup 11/12/2024 8:43 AM EDT [facility] Urine Urine specimen obtained by clean catch procedure / Unknown Non-blood Collection / Unknown 11/11/2024 11/11/2024 9:44 AM EDT us Shonda Brenner MD LAB MICROBIOLOGY - GENERAL ORDE RABLES Final Result Performing Organization Address [facility]/ZIP Co de Phone Number [facility] [address] [place] [address], [place] [phone] documented in this encounter Visit Diagnoses Diagnosis Unspecified abdominal pain documented in this encounter Care Teams Power Switchboard Operator Relationship Specialty Start Date End Date Tram Álvarez MD 2 [facility] [address] Physician Associ D/B/A: [facility] JAS Duque PCP - General Internal Medicine 03/30/18 documented as of this encounter
--- OUTSIDE RECORDS SUMMARY | 2025-06-01 16:52 | XMS_ITS | Encounter Summary ---
Author Organization [facility] Address [address] [place] [address] Care Team Providers Care Automatic Blocker Name Role Phone Tram Álvarez MD Primary Care Provider [phone] Encounter Details Date Type Department Care Team (Late st Contact Info) Description 05/21/[address] [facility] - Main Lab [address] [place] [address] Prince Le MD 38 [facility] [address] [place], [address] Essential (primary) hypertension Social History Tobacco [...] mmol/L LAB CHEMISTRY METHOD 05/24/2024 9:02 AM [facility] CO2 28 21 - 32 mmol/L LAB CHEMISTRY METHOD 05/24/2024 9:02 AM [facility] Anion Gap 5 3 - 11 LAB CHEMISTRY METHOD 05/24/2024 9:02 AM [facility] Glucose 129(H) 70 - 100 mg/dL LAB CHEMISTRY METHOD 05/24/2024 9:02 AM [facility] BUN 38(H) 5 - 25 mg/dL LAB CHEMISTRY METHOD 05/24/2024 9:02 AM [facility] Creatinine 1.33(H) 0.70 - 1.30 mg/dL LAB CHEMISTRY METHOD 05/24/2024 9:02 AM [facility] eGFR 58(L) >=60 mL/min/1. 73m2 LAB CHEMISTRY METHOD 05/24/2024 9:02 AM [facility] Comment:Calculation based on the Chronic Kidney Disease Epidemiology Collaboration (CKD-EPI) equation refit without adjustment for race. BUN/Creatinine Ratio 28.6 LAB CHEMISTRY METHOD 05/24/2024 9:02 AM [facility] Calcium 9.2 8.5 - 10.5 mg/dL LAB CHEMISTRY METHOD 05/24/2024 9:02 AM [facility] Blood Venous blood specimen / Unknown Venipuncture / Unknown 05/24/2024 6:00 AM EST 05/24/2024 7:45 AM EST us Prince Le MD LAB BLOOD ORDERABLES Final Resul t [facility] [address] [place] [address], * (ABNORMAL) Complete blood count (05/24/2024 6:00 AM EST) WBC 9.3 4.8 - 10.8 K/[facility] LAB HEMETOLOGY METHOD 05/24/2024 9:03 AM [facility] RBC 4.90 4.50 - 5.50 M/mcL LAB HEMETOLOGY METHOD 05/24/2024 9:03 AM [facility] Hemoglobin 13.6 13.5 - 17.5 g/dL LAB HEMETOLOGY METHOD 05/24/2024 9:03 AM [facility] Hematocrit 43.1 42.0 - 54.0 % LAB HEMETOLOGY METHOD 05/24/2024 9:03 AM [facility] MCV 87.4 79.0 - 98.0 FL LAB HEMETOLOGY METHOD 05/24/2024 9:03 AM [facility] MCH 27.6 27.0 - 32.0 pcg LAB HEMETOLOGY METHOD 05/24/2024 9:03 AM [facility] MCHC 31.6(L) 32.0 - 37.0 g/dL LAB HEMETOLOGY METHOD 05/24/2024 9:03 AM [facility] RDW 16.4(H) 11.0 - 15.0 % LAB HEMETOLOGY METHOD 05/24/2024 9:03 AM [facility] Platelets 249 130 - 400 K/[facility] LAB HEMETOLOGY METHOD 05/24/2024 9:03 AM [facility] MPV 13.1(H) 7.0 - 11.0 FL LAB HEMETOLOGY METHOD 05/24/2024 9:03 AM [facility] NRBC 0.0 <1.0 % LAB HEMETOLOGY METHOD 05/24/2024 9:03 AM [facility] NRBC Absolute 0.00 <0.10 K/mcL LAB HEMETOLOGY METHOD 05/24/2024 9:03 AM [facility] Blood Venous blood specimen / Unknown Venipuncture / Unknown 05/24/2024 6:00 AM EST 05/24/2024 7:45 AM EST us Prince Le MD LAB BLOOD ORDERABLES Final Resul t [facility] [address] [place] [address], documented in this encounter Visit Diagnoses Diagnosis Essential (primary) hypertension Unspecified essential hypertension documented in this encounter Care Teams Automatic Blocker Relationship Specialty Start Date End Date Tram Álvarez MD 2 [facility] , [address] [place] [address] Physician Associ D/B/A: [facility] JAS Duque PCP - General Internal Medicine 03/30/18 documented as of this encounter
--- OUTSIDE RECORDS SUMMARY | 2025-06-01 16:52 | XMS_ITS | Encounter Summary ---
Author Organization [facility] Address [address] [place] [address] Care Team Providers Care Curator Medical Museum Name Role Phone Tram Álvarez MD Primary Care Provider [phone] Encounter Details Date Type Department Care Team (Late st Contact Info) Description 11/18/[address] [facility] - Main Lab [address] [place] [address] Preeti Lujan MD [address] [phone] Chronic kidney disease, stage 3 unspecified (CMS/HCC [...] LAB CHEMISTRY METHOD 11/18/2024 10:12 AM EDT [facility] Potassium 4.6 3.5 - 5.5 mmol/L LAB CHEMISTRY METHOD 11/18/2024 10:12 AM [facility] Chloride 112(H) 96 - 110 mmol/L LAB CHEMISTRY METHOD 11/18/2024 10:12 AM [facility] CO2 25 21 - 32 mmol/L LAB CHEMISTRY METHOD 11/18/2024 10:12 AM [facility] Anion Gap 6 3 - 11 LAB CHEMISTRY METHOD 11/18/2024 10:12 AM [facility] Glucose 105(H) 70 - 100 mg/dL LAB CHEMISTRY METHOD 11/18/2024 10:12 AM [facility] BUN 26(H) 5 - 25 mg/dL LAB CHEMISTRY METHOD 11/18/2024 10:12 AM [facility] Creatinine 0.63(L) 0.70 - 1.30 mg/dL LAB CHEMISTRY METHOD 11/18/2024 10:12 AM [facility] eGFR 103 >=60 mL/min/1. 73m2 LAB CHEMISTRY METHOD 11/18/2024 10:12 AM [facility] Comment:Calculation based on the Chronic Kidney Disease Epidemiology Collaboration (CKD-EPI) equation refit without adjustment for race. BUN/Creatinine Ratio 41.3 LAB CHEMISTRY METHOD 11/18/2024 10:12 AM [facility] Calcium 8.8 8.5 - 10.5 mg/dL LAB CHEMISTRY METHOD 11/18/2024 10:12 AM [facility] Blood Venous blood specimen / Unknown Venipuncture / Unknown 11/18/2024 6:05 AM EDT 11/18/2024 9:23 AM EDT us Preeti Lujan MD LAB BLOOD ORDERABLES Fin al Result [facility] [address] [place] [address], documented in this encounter Visit Diagnoses Diagnosis Chronic kidney disease, stage 3 unspecified (CMS/[facility] V24, [facility] V28) Spinal stenosis, lumbar region without neurogenic claudication documented in this encounter Care Teams Curator Medical Museum Relationship Specialty Start Date End Date Tram Álvarez MD 2 [facility] , [facility] [address] [facility] Physician Associ D/B/A: [facility] JAS Duque PCP - General Internal Medicine 03/30/18 documented as of this encounter
--- OUTSIDE RECORDS SUMMARY | 2025-06-01 16:52 | XMS_ITS | Encounter Summary ---
Author Organization [facility] Address [address] [place] [phone] Care Team Providers Care Straightener Name Role Phone Tram Álvarez MD Primary Care Provider [phone] Encounter Details Date Type Department Care Team (Late st Contact Info) Description 09/09/2024 Lab Requisition [facility] - Main Lab [address] [facility] [place] [address] Prince Le MD 38 [facility] [address] [place], [address] Type 2 diabetes [...] V28) documented in this encounter Care Teams Straightener Relationship Specialty Start Date End Date Tram Álvarez MD [address] [place] [address] , [address] [facility] Physician Associ D/B/A: [facility] [place], [place] PCP - General Internal Medicine 03/30/18 documented as of this encounter
--- OUTSIDE RECORDS SUMMARY | 2025-06-01 16:52 | XMS_ITS | Clinical Summary ---
Author Organization [facility] Address [address] [place] [address] Care Team Providers Care Wool Batting Worker Name Role Phone Tram Royal MD [...] age to complete this topic Care Teams Wool Batting Worker Relationship Specialty Start Date End Date Tram Royal MD 2 [facility] , [address] [facility] D/B/A: [facility] [place] [address] PCP - General Internal Medicine 03/30/18
--- OUTSIDE RECORDS SUMMARY | 2025-06-01 16:52 | XMS_ITS | Encounter Summary ---
Author Organization [facility] Address [address] [place] [address] Care Team Providers Care Gang Saw Operator Name Role Phone Tram Álvarez MD Primary Care Provider [phone] Encounter Details Date Type Department Care Team (Late st Contact Info) Description 08/05/2024 Lab Requisition [facility] - Main Lab [address] [facility] [place] [address] Prince Le MD 38 [facility] [address] [place], [address] Type 2 diabetes mellitus without complications [...] mg/dL LAB CHEMISTRY METHOD 08/06/2024 9:31 AM [facility] LAB Blood Venous blood specimen / Unknown Venipuncture / Unknown 08/06/2024 6:49 AM EST 08/06/2024 8:31 AM EST us Prince Le MD LAB BLOOD ORDERABLES Final Resul t [facility] LAB [address] [place] [address], [place] [phone] * Comprehensive metabolic panel (08/06/2024 6:49 AM EST) Sodium 140 133 - 145 mmol/L LAB CHEMISTRY METHOD 08/06/2024 9:31 AM [facility] LAB Potassium 5.0 3.5 - 5.5 mmol/L LAB CHEMISTRY METHOD 08/06/2024 9:31 AM [facility] LAB Chloride 106 96 - 110 mmol/L LAB CHEMISTRY METHOD 08/06/2024 9:31 AM [facility] LAB CO2 30 21 - 32 mmol/L LAB CHEMISTRY METHOD 08/06/2024 9:31 AM [facility] LAB Anion Gap 4 3 - 11 LAB CHEMISTRY METHOD 08/06/2024 9:31 AM [facility] LAB Glucose 99 70 - 100 mg/dL LAB CHEMISTRY METHOD 08/06/2024 9:31 AM [facility] LAB BUN 25 5 - 25 mg/dL LAB CHEMISTRY METHOD 08/06/2024 9:31 AM [facility] LAB Creatinine 1.10 0.70 - 1.30 mg/dL LAB CHEMISTRY METHOD 08/06/2024 9:31 AM [facility] LAB eGFR 73 >=60 mL/min/1. 73m2 LAB CHEMISTRY METHOD 08/06/2024 9:31 AM [facility] LAB Comment:Calculation based on the Chronic Kidney Disease Epidemiology Collaboration (CKD-EPI) equation refit without adjustment for race. BUN/Creatinine Ratio 22.7 LAB CHEMISTRY METHOD 08/06/2024 9:31 AM [facility] LAB Calcium 9.5 8.5 - 10.5 mg/dL LAB CHEMISTRY METHOD 08/06/2024 9:31 AM [facility] LAB AST (SGOT) 33 10 - 42 unit/L LAB CHEMISTRY METHOD 08/06/2024 9:31 AM [facility] LAB ALT (SGPT) 26 10 - 60 unit/L LAB CHEMISTRY METHOD 08/06/2024 9:31 AM [facility] LAB Alkaline Phosphatase 51 42 - 121 unit/L LAB CHEMISTRY METHOD 08/06/2024 9:31 AM [facility] LAB Total Protein 6.6 6.0 - 8.0 g/dL LAB CHEMISTRY METHOD 08/06/2024 9:31 AM [facility] LAB Albumin 3.4 3.2 - 5.0 g/dL LAB CHEMISTRY METHOD 08/06/2024 9:31 AM [facility] Total Bilirubin 0.4 0.0 - 1.4 mg/dL LAB CHEMISTRY METHOD 08/06/2024 9:31 AM [facility] LAB Blood Venous blood specimen / Unknown Venipuncture / Unknown 08/06/2024 6:49 AM EST 08/06/2024 8:31 AM EST us Prince Le MD LAB BLOOD ORDERABLES Final Resul t [facility] LAB [address] [place] [address], * (ABNORMAL) Complete blood count (08/06/2024 6:49 AM EST) WBC 8.2 4.8 - 10.8 K/mcL LAB HEMETOLOGY METHOD 08/06/2024 9:12 AM [facility] RBC 4.50 4.50 - 5.50 M/mcL LAB HEMETOLOGY METHOD 08/06/2024 9:12 AM [facility] LAB Hemoglobin 12.2(L) 13.5 - 17.5 g/dL LAB HEMETOLOGY METHOD 08/06/2024 9:12 AM [facility] LAB Hematocrit 37.4(L) 42.0 - 54.0 % LAB HEMETOLOGY METHOD 08/06/2024 9:12 AM [facility] LAB MCV 84.0 79.0 - 98.0 FL LAB HEMETOLOGY METHOD 08/06/2024 9:12 AM [facility] LAB MCH 27.4 27.0 - 32.0 pcg LAB HEMETOLOGY METHOD 08/06/2024 9:12 AM [facility] LAB MCHC 32.6 32.0 - 37.0 g/dL LAB HEMETOLOGY METHOD 08/06/2024 9:12 AM [facility] LAB RDW 20.3(H) 11.0 - 15.0 % LAB HEMETOLOGY METHOD 08/06/2024 9:12 AM [facility] LAB Platelets 351 130 - 400 K/mcL LAB HEMETOLOGY METHOD 08/06/2024 9:12 AM [facility] LAB MPV 12.2(H) 7.0 - 11.0 FL LAB HEMETOLOGY METHOD 08/06/2024 9:12 AM [facility] LAB NRBC 0.0 <1.0 % LAB HEMETOLOGY METHOD 08/06/2024 9:12 AM [facility] LAB NRBC Absolute 0.00 <0.10 K/mcL LAB HEMETOLOGY METHOD 08/06/2024 9:12 AM [facility] LAB Blood Venous blood specimen / Unknown Venipuncture / Unknown 08/06/2024 6:49 AM EST 08/06/2024 8:31 AM EST us Prince Le MD LAB BLOOD ORDERABLES Final [facility]ul t [facility] [address] [place] [address], [place] [phone] documented in this encounter Visit Diagnoses Diagnosis Type 2 diabetes mellitus without complications (CMS/HCC V24, CMS/HCC V28) documented in this encounter Care Teams Gang Saw Operator Relationship Specialty Start Date End Date Tram Álvarez MD 2 [facility] , [address] [facility] D/B/A: [facility] [place] MD PCP - General Internal Medicine 03/30/18 documented as of this encounter
--- OUTSIDE RECORDS SUMMARY | 2025-06-01 16:52 | XMS_ITS | Encounter Summary ---
Author Organization [facility] Address [address] [place] [address] Care Team Providers Care Lab Nurse Name Role Phone Tram Álvarez MD Primary Care Provider [phone] Encounter Details Date Type Department Care Team (Late st Contact Info) Description 07/22/2024 Lab Requisition [facility] - Main Lab [address] [facility] [place] [address] Prince Le MD 38 [facility] [address] [place], [address] Type 2 diabetes mellitus without complications [...] mg/dL LAB CHEMISTRY METHOD 07/23/2024 10:47 AM [facility] LAB Blood Venous blood specimen / Unknown Venipuncture / Unknown 07/23/2024 6:52 AM EST 07/23/2024 9:26 AM EST us Prince Le MD LAB BLOOD ORDERABLES Final Resul t [facility] LAB [address] [place] [address], [place] [phone] * (ABNORMAL) Comprehensive metabolic panel (07/23/2024 6:52 AM EST) Sodium 137 133 - 145 mmol/L LAB CHEMISTRY METHOD 07/23/2024 10:47 AM [facility] LAB Potassium 5.3 3.5 - 5.5 mmol/L LAB CHEMISTRY METHOD 07/23/2024 10:47 AM [facility] LAB Chloride 102 96 - 110 mmol/L LAB CHEMISTRY METHOD 07/23/2024 10:47 AM [facility] LAB CO2 28 21 - 32 mmol/L LAB CHEMISTRY METHOD 07/23/2024 10:47 AM [facility] LAB Anion Gap 7 3 - 11 LAB CHEMISTRY METHOD 07/23/2024 10:47 AM [facility] LAB Glucose 78 70 - 100 mg/dL LAB CHEMISTRY METHOD 07/23/2024 10:47 AM [facility] LAB BUN 39(H) 5 - 25 mg/dL LAB CHEMISTRY METHOD 07/23/2024 10:47 AM [facility] LAB Creatinine 1.58(H) 0.70 - 1.30 mg/dL LAB CHEMISTRY METHOD 07/23/2024 10:47 AM [facility] LAB eGFR 47(L) >=60 mL/min/1. 73m2 LAB CHEMISTRY METHOD 07/23/2024 10:47 AM [facility] LAB Comment:Calculation based on the Chronic Kidney Disease Epidemiology Collaboration (CKD-EPI) equation refit without adjustment for race. BUN/Creatinine Ratio 24.7 LAB CHEMISTRY METHOD 07/23/2024 10:47 AM [facility] LAB Calcium 9.5 8.5 - 10.5 mg/dL LAB CHEMISTRY METHOD 07/23/2024 10:47 AM [facility] LAB AST (SGOT) 25 10 - 42 unit/L LAB CHEMISTRY METHOD 07/23/2024 10:47 AM [facility] LAB ALT (SGPT) 26 10 - 60 unit/L LAB CHEMISTRY METHOD 07/23/2024 10:47 AM [facility] LAB Alkaline Phosphatase 68 42 - 121 unit/L LAB CHEMISTRY METHOD 07/23/2024 10:47 AM [facility] LAB Total Protein 6.9 6.0 - 8.0 g/dL LAB CHEMISTRY METHOD 07/23/2024 10:47 AM [facility] LAB Albumin 3.5 3.2 - 5.0 g/dL LAB CHEMISTRY METHOD 07/23/2024 10:47 AM [facility] LAB Total Bilirubin 0.4 0.0 - 1.4 mg/dL LAB CHEMISTRY METHOD 07/23/2024 10:47 AM [facility] LAB Blood Venous blood specimen / Unknown Venipuncture / Unknown 07/23/2024 6:52 AM EST 07/23/2024 9:26 AM EST us Prince Le MD LAB BLOOD ORDERABLES Final Resul t [facility] LAB [address] [place] [address], * (ABNORMAL) Complete blood count (07/23/2024 6:52 AM EST) WBC 9.2 4.8 - 10.8 K/mcL LAB HEMETOLOGY METHOD 07/23/2024 10:13 AM [facility] LAB RBC 4.90 4.50 - 5.50 M/mcL LAB HEMETOLOGY METHOD 07/23/2024 10:13 AM [facility] LAB Hemoglobin 13.6 13.5 - 17.5 g/dL LAB HEMETOLOGY METHOD 07/23/2024 10:13 AM [facility] LAB Hematocrit 41.2(L) 42.0 - 54.0 % LAB HEMETOLOGY METHOD 07/23/2024 10:13 AM [facility] LAB MCV 83.7 79.0 - 98.0 FL LAB HEMETOLOGY METHOD 07/23/2024 10:13 AM [facility] LAB MCH 27.6 27.0 - 32.0 pcg LAB HEMETOLOGY METHOD 07/23/2024 10:13 AM [facility] LAB MCHC 33.0 32.0 - 37.0 g/dL LAB HEMETOLOGY METHOD 07/23/2024 10:13 AM [facility] LAB RDW 19.0(H) 11.0 - 15.0 % LAB HEMETOLOGY METHOD 07/23/2024 10:13 AM [facility] LAB Platelets 364 130 - 400 K/mcL LAB HEMETOLOGY METHOD 07/23/2024 10:13 AM [facility] LAB MPV 12.2(H) 7.0 - 11.0 FL LAB HEMETOLOGY METHOD 07/23/2024 10:13 AM [facility] LAB NRBC 0.0 <1.0 % LAB HEMETOLOGY METHOD 07/23/2024 10:13 AM [facility] LAB NRBC Absolute 0.00 <0.10 K/mcL LAB HEMETOLOGY METHOD 07/23/2024 10:13 AM [facility] LAB Blood Venous blood specimen / Unknown Venipuncture / Unknown 07/23/2024 6:52 AM EST 07/23/2024 9:26 AM EST us Prince Le MD LAB BLOOD ORDERABLES Final Resul t [facility] [address] [place] [address], documented in this encounter Visit Diagnoses Diagnosis Type 2 diabetes mellitus without complications (CMS/HCC V24, CMS/HCC V28) documented in this encounter Care Teams Lab Nurse Relationship Specialty Start Date End Date Tram Álvarez MD 2 [facility] , [address] [facility] Physician Associ D/B/A: [facility] [place] Duque PCP - General Internal Medicine 03/30/18 documented as of this encounter
--- OUTSIDE RECORDS SUMMARY | 2025-06-01 16:52 | XMS_ITS | Encounter Summary ---
Author Organization [facility] Address [address] [place] [address] Care Team Providers Care Seed Cleaner Name Role Phone Tram Álvarez MD Primary Care Provider Encounter Details Date Type Department Care Team (Late st Contact Info) Description 10/07/2024 Lab Requisition [facility] - Main Lab 299 [facility] [employer] [place] [address] Prince Le MD 38 [facility] [address] [place], [address] Type 2 diabetes mellitus without complications [...] V28) documented in this encounter Care Teams Seed Cleaner Relationship Specialty Start Date End Date Tram Álvarez MD [address] [place] [address] , [address] [facility] Physician Associ D/B/A: [facility] [place], [place] PCP - General Internal Medicine 03/30/18 documented as of this encounter
--- OUTSIDE RECORDS SUMMARY | 2025-06-01 16:52 | XMS_ITS | Encounter Summary ---
Author Organization [facility] Address [address] [place] [address] Care Team Providers Care Stock Fitter Name Role Phone Tram Álvarez MD Primary Care Provider [phone] Encounter Details Date Type Department Care Team (Late st Contact Info) Description 08/26/2024 Lab Requisition [facility] - Main Lab 299 [facility] [place] [address] Prince Le MD 38 [facility] [address] [place], [address] Type 2 diabetes mellitus without complications [...] mg/dL LAB CHEMISTRY METHOD 08/27/2024 9:27 AM [facility] LAB HDL 30(L) >=40 mg/dL LAB CHEMISTRY METHOD 08/27/2024 9:27 AM EST [facility] LDL Calculated 16 0 - 100 mg/dL LAB CHEMISTRY METHOD 08/27/2024 9:27 AM [facility] LAB VLDL Cholesterol Maikel 49.8 mg/dL LAB CHEMISTRY METHOD 08/27/2024 9:27 AM [facility] LAB Non HDL Chol. (LDL+VLDL) 66 <145 mg/dL LAB CHEMISTRY METHOD 08/27/2024 9:27 AM [facility] LAB Chol/HDL Ratio 3.2 0.0 - 4.4 LAB CHEMISTRY METHOD 08/27/2024 9:27 AM [facility] LAB Blood Venous blood specimen / Unknown Venipuncture / Unknown 08/27/2024 6:34 AM EST 08/27/2024 8:52 AM EST us Prince Le MD LAB BLOOD ORDERABLES Final Resul t [facility] LAB [address] [place] [address], * (ABNORMAL) C-reactive protein (08/27/2024 6:34 AM EST) C-Reactive Protein 1.47(H) <=0.50 mg/dL LAB CHEMISTRY METHOD 08/27/2024 9:27 AM [facility] LAB Blood Venous blood specimen / Unknown Venipuncture / Unknown 08/27/2024 6:34 AM EST 08/27/2024 8:52 AM EST us Prince Le MD LAB BLOOD ORDERABLES Final Resul t [facility] LAB [address] [place] [address], [place] [phone] * (ABNORMAL) Comprehensive metabolic panel (08/27/2024 6:34 AM EST) Sodium 139 133 - 145 mmol/L LAB CHEMISTRY METHOD 08/27/2024 9:27 AM [facility] LAB Potassium 4.6 3.5 - 5.5 mmol/L LAB CHEMISTRY METHOD 08/27/2024 9:27 AM [facility] LAB Chloride 105 96 - 110 mmol/L LAB CHEMISTRY METHOD 08/27/2024 9:27 AM [facility] LAB CO2 31 21 - 32 mmol/L LAB CHEMISTRY METHOD 08/27/2024 9:27 AM [facility] LAB Anion Gap 3 3 - 11 LAB CHEMISTRY METHOD 08/27/2024 9:27 AM [facility] LAB Glucose 112(H) 70 - 100 mg/dL LAB CHEMISTRY METHOD 08/27/2024 9:27 AM [facility] LAB BUN 19 5 - 25 mg/dL LAB CHEMISTRY METHOD 08/27/2024 9:27 AM [facility] LAB Creatinine 0.71 0.70 - 1.30 mg/dL LAB CHEMISTRY METHOD 08/27/2024 9:27 AM [facility] LAB eGFR 100 >=60 mL/min/1. 73m2 LAB CHEMISTRY METHOD 08/27/2024 9:27 AM [facility] LAB Comment:Calculation based on the Chronic Kidney Disease Epidemiology Collaboration (CKD-EPI) equation refit without adjustment for race. BUN/Creatinine Ratio 26.8 LAB CHEMISTRY METHOD 08/27/2024 9:27 AM [facility] LAB Calcium 9.5 8.5 - 10.5 mg/dL LAB CHEMISTRY METHOD 08/27/2024 9:27 AM [facility] LAB AST (SGOT) 19 10 - 42 unit/L LAB CHEMISTRY METHOD 08/27/2024 9:27 AM [facility] LAB ALT (SGPT) 29 10 - 60 unit/L LAB CHEMISTRY METHOD 08/27/2024 9:27 AM [facility] LAB Alkaline Phosphatase 53 42 - 121 unit/L LAB CHEMISTRY METHOD 08/27/2024 9:27 AM [facility] LAB Total Protein 6.5 6.0 - 8.0 g/dL LAB CHEMISTRY METHOD 08/27/2024 9:27 AM [facility] LAB Albumin 3.2 3.2 - 5.0 g/dL LAB CHEMISTRY METHOD 08/27/2024 9:27 AM [facility] LAB Total Bilirubin 0.6 0.0 - 1.4 mg/dL LAB CHEMISTRY METHOD 08/27/2024 9:27 AM [facility] LAB Blood Venous blood specimen / Unknown Venipuncture / Unknown 08/27/2024 6:34 AM EST 08/27/2024 8:52 AM EST us Prince Le MD LAB BLOOD ORDERABLES Final Resul t [facility] [address] [place] [address], * (ABNORMAL) Complete blood count (08/27/2024 6:34 AM EST) WBC 12.7(H) 4.8 - 10.8 K/mcL LAB HEMETOLOGY METHOD 08/27/2024 9:04 AM [facility] LAB RBC 3.80(L) 4.50 - 5.50 M/mcL LAB HEMETOLOGY METHOD 08/27/2024 9:04 AM [facility] LAB Hemoglobin 10.9(L) 13.5 - 17.5 g/dL LAB HEMETOLOGY METHOD 08/27/2024 9:04 AM [facility] LAB Hematocrit 34.6(L) 42.0 - 54.0 % LAB HEMETOLOGY METHOD 08/27/2024 9:04 AM [facility] LAB MCV 91.5 79.0 - 98.0 FL LAB HEMETOLOGY METHOD 08/27/2024 9:04 AM [facility] LAB MCH 28.8 27.0 - 32.0 pcg LAB HEMETOLOGY METHOD 08/27/2024 9:04 AM [facility] LAB MCHC 31.5(L) 32.0 - 37.0 g/dL LAB HEMETOLOGY METHOD 08/27/2024 9:04 AM [facility] LAB RDW 20.3(H) 11.0 - 15.0 % LAB HEMETOLOGY METHOD 08/27/2024 9:04 AM [facility] LAB Platelets 422(H) 130 - 400 K/mcL LAB HEMETOLOGY METHOD 08/27/2024 9:04 AM [facility] LAB MPV 12.5(H) 7.0 - 11.0 FL LAB HEMETOLOGY METHOD 08/27/2024 9:04 AM [facility] LAB NRBC 0.0 <1.0 % LAB HEMETOLOGY METHOD 08/27/2024 9:04 AM [facility] LAB NRBC Absolute 0.00 <0.10 K/mcL LAB HEMETOLOGY METHOD 08/27/2024 9:04 AM [facility] LAB Blood Venous blood specimen / Unknown Venipuncture / Unknown 08/27/2024 6:34 AM EST 08/27/2024 8:52 AM EST us Prince Le MD LAB BLOOD ORDERABLES Final Resul t [facility] [address] [place] [address], documented in this encounter Visit Diagnoses Diagnosis Type 2 diabetes mellitus without complications (CMS/HCC V24, CMS/HCC V28) documented in this encounter Care Teams Stock Fitter Relationship Specialty Start Date End Date Tram Álvarez MD 2 [facility] , [address] [facility]ician [facility] D/B/A: [facility] [place], [place] PCP - General Internal Medicine 03/30/18 documented as of this encounter
--- OUTSIDE RECORDS SUMMARY | 2025-06-01 16:52 | XMS_ITS | Encounter Summary ---
Author Organization [facility] Address [address] [place] [address] Care Team Providers Care Logging Contractor Name Role Phone Tram Álvarez MD Primary Care Provider Encounter Details Date Type Department Care Team (Late st Contact Info) Description 09/02/2024 Lab Requisition [facility] - Main Lab 299 [facility] [place] [address] Prince Le MD 38 [facility] [address] [place], [address] Type 2 diabetes mellitus without complications [...] [facility] [address] [place] [address], [place] [phone] * (ABNORMAL) Comprehensive metabolic panel (09/03/2024 6:35 [...] [facility] LAB [address] [place] [address], * (ABNORMAL) Complete blood count (09/03/2024 6:35 [...] BLOOD ORDERABLES Final Resul t [facility] [address] [place] [address], [place] [phone] documented in this encounter Visit Diagnoses Diagnosis Type 2 diabetes mellitus without complications (CMS/HCC V24, CMS/HCC V28) documented in this encounter Care Teams Logging Contractor Relationship Specialty Start Date End Date Tram Álvarez MD 2 [facility] , [address] [facility] Physician Associ D/B/A: [facility] JAS Duque PCP - General Internal Medicine 03/30/18 documented as of this encounter
--- OUTSIDE RECORDS SUMMARY | 2025-06-01 16:52 | XMS_ITS | Encounter Summary ---
Author Organization [facility] Address [address] [place] [phone] Care Team Providers Care Director Government Name Role Phone Tram Álvarez MD Primary Care Provider [phone] Encounter Details Date Type Department Care Team (Late st Contact Info) Description 10/14/2024 Lab Requisition [facility] - Main Lab 299 [facility] [place] [address] Prince Le MD 38 [facility] [address] [place], [address] Type 2 diabetes mellitus without complications [...] documented in this encounter Care Teams Director Government Relationship Specialty Start Date End Date Tram Álvarez MD [address] [place] [address] , [address] [facility] Physician Associ D/B/A: [facility] [place], [place] PCP - General Internal Medicine 03/30/18 documented as of this encounter
--- OUTSIDE RECORDS SUMMARY | 2025-06-01 16:52 | XMS_ITS | Encounter Summary ---
Author Organization [facility] Address [address] [place] [address] Care Team Providers Care Truck Railroad And Bus Motor Mechanic Name Role Phone Tram Álvarez MD Primary Care Provider [phone] Encounter Details Date Type Department Care Team (Late st Contact Info) Description 05/28/2024 Lab Requisition [facility] - Main Lab [address] [place] [address] Prince Le MD 38 [facility] [address] [place], [address] Essential (primary) hypertension Social History Tobacco [...] mmol/L LAB CHEMISTRY METHOD 05/31/2024 11:37 AM [facility] LAB CO2 28 21 - 32 mmol/L LAB CHEMISTRY METHOD 05/31/2024 11:37 AM [facility] LAB Anion Gap 6 3 - 11 LAB CHEMISTRY METHOD 05/31/2024 11:37 AM [facility] LAB Glucose 104(H) 70 - 100 mg/dL LAB CHEMISTRY METHOD 05/31/2024 11:37 AM [facility] LAB BUN 25 5 - 25 mg/dL LAB CHEMISTRY METHOD 05/31/2024 11:37 AM [facility] LAB Creatinine 1.15 0.70 - 1.30 mg/dL LAB CHEMISTRY METHOD 05/31/2024 11:37 AM [facility] LAB eGFR 69 >=60 mL/min/1. 73m2 LAB CHEMISTRY METHOD 05/31/2024 11:37 AM [facility] LAB Comment:Calculation based on the Chronic Kidney Disease Epidemiology Collaboration (CKD-EPI) equation refit without adjustment for race. BUN/Creatinine Ratio 21.7 LAB CHEMISTRY METHOD 05/31/2024 11:37 AM [facility] LAB Calcium 9.2 8.5 - 10.5 mg/dL LAB CHEMISTRY METHOD 05/31/2024 11:37 AM [facility] LAB Blood Venous blood specimen / Unknown Venipuncture / Unknown 05/31/2024 7:20 AM EST 05/31/2024 10:13 AM EST us Prince Le MD LAB BLOOD ORDERABLES Final Resul t [facility] LAB [address] [place] [address], * (ABNORMAL) Complete blood count (05/31/2024 7:20 AM EST) WBC 8.8 4.8 - 10.8 K/mcL LAB HEMETOLOGY METHOD 05/31/2024 10:39 AM [facility] LAB RBC 5.10 4.50 - 5.50 M/mcL LAB HEMETOLOGY METHOD 05/31/2024 10:39 AM [facility] LAB Hemoglobin 14.2 13.5 - 17.5 g/dL LAB HEMETOLOGY METHOD 05/31/2024 10:39 AM [facility] LAB Hematocrit 44.7 42.0 - 54.0 % LAB HEMETOLOGY METHOD 05/31/2024 10:39 AM [facility] LAB MCV 87.0 79.0 - 98.0 FL LAB HEMETOLOGY METHOD 05/31/2024 10:39 AM [facility] LAB MCH 27.6 27.0 - 32.0 pcg LAB HEMETOLOGY METHOD 05/31/2024 10:39 AM [facility] LAB MCHC 31.8(L) 32.0 - 37.0 g/dL LAB HEMETOLOGY METHOD 05/31/2024 10:39 AM [facility] LAB RDW 16.5(H) 11.0 - 15.0 % LAB HEMETOLOGY METHOD 05/31/2024 10:39 AM [facility] LAB Platelets 242 130 - 400 K/mcL LAB HEMETOLOGY METHOD 05/31/2024 10:39 AM [facility] LAB MPV 12.5(H) 7.0 - 11.0 FL LAB HEMETOLOGY METHOD 05/31/2024 10:39 AM [facility] LAB NRBC 0.0 <1.0 % LAB HEMETOLOGY METHOD 05/31/2024 10:39 AM [facility] LAB NRBC Absolute 0.00 <0.10 K/mcL LAB HEMETOLOGY METHOD 05/31/2024 10:39 AM [facility] LAB Blood Venous blood specimen / Unknown Venipuncture / Unknown 05/31/2024 7:20 AM EST 05/31/2024 10:16 AM EST us Prince Le MD LAB BLOOD ORDERABLES Final Resul t [facility] LAB [address] [place] [address], [place] [phone] documented in this encounter Visit Diagnoses Diagnosis Essential (primary) hypertension Unspecified essential hypertension documented in this encounter Care Teams Truck Railroad And Bus Motor Mechanic Relationship Specialty Start Date End Date Tram Álvarez MD 2 [facility] , [address] [facility] Physician Associ D/B/A: [facility] [place] Duque PCP - General Internal Medicine 03/30/18 documented as of this encounter
--- OUTSIDE RECORDS SUMMARY | 2025-06-01 16:52 | XMS_ITS | Encounter Summary ---
Author Organization [facility] Address [address] [place] [address] Care Team Providers Care Search Marketing Specialist Name Role Phone Tram Álvarez MD Primary Care Provider [phone] Encounter Details Date Type Department Care Team (Late st Contact Info) Description 07/29/2024 Lab Requisition [facility] - Main Lab 299 [facility] [place] [address] Prince Le MD 38 [facility] [address] [place], [address] Type 2 diabetes mellitus without complications [...] Resul t [facility] LAB [address] [place] [address], [place] [phone] * (ABNORMAL) Comprehensive metabolic panel (07/30/2024 7:30 [...] Resul t [facility] LAB [address] [place] [address], * (ABNORMAL) Complete blood count (07/30/2024 7:30 AM EST) WBC 8.9 4.8 - 10.8 K/mcL LAB HEMETOLOGY METHOD 07/30/2024 9:55 AM EST [facility] LAB RBC 4.30(L) 4.50 - 5.50 M/mcL [...] MD LAB BLOOD ORDERABLES Final Resul t [facility] ([facility]) [facility] LAB [address] [place] [address], documented in this encounter Visit Diagnoses Diagnosis Type 2 diabetes mellitus without complications (CMS/HCC V24, CMS/HCC V28) documented in this encounter Care Teams Search Marketing Specialist Relationship Specialty Start Date End Date Tram Álvarez MD 2 [facility] , [address] [facility] Physician Associ D/B/A: [facility] [place]AS Duque PCP - General Internal Medicine 03/30/18 documented as of this encounter
--- OUTSIDE RECORDS SUMMARY | 2025-06-01 16:52 | XMS_ITS | Encounter Summary ---
Author Organization [facility] Address [address] [place] [address] Care Team Providers Care Railroad Purchasing Agent Name Role Phone Tram Álvarez MD Primary Care Provider [phone] Encounter Details Date Type Department Care Team (Late st Contact Info) Description 03/01/2025 Lab Requisition [facility] - Main Lab [address] [facility] [place] [address] Preeti Lujan MD [address] [phone] Essential (primary) hypertension Social History Tobacco Use [...] LAB CHEMISTRY METHOD 03/01/2025 11:14 AM EDT [facility] LAB Potassium 4.6 3.5 - 5.5 mmol/L LAB CHEMISTRY METHOD 03/01/2025 11:14 AM [facility] LAB Chloride 112(H) 96 - 110 mmol/L LAB CHEMISTRY METHOD 03/01/2025 11:14 AM [facility] LAB CO2 25 21 - 32 mmol/L LAB CHEMISTRY METHOD 03/01/2025 11:14 AM [facility] LAB Anion Gap 4 3 - 11 LAB CHEMISTRY METHOD 03/01/2025 11:14 AM [facility] LAB Glucose 135(H) 70 - 100 mg/dL LAB CHEMISTRY METHOD 03/01/2025 11:14 AM [facility] LAB BUN 25 5 - 25 mg/dL LAB CHEMISTRY METHOD 03/01/2025 11:14 AM [facility] LAB Creatinine 0.76 0.70 - 1.30 mg/dL LAB CHEMISTRY METHOD 03/01/2025 11:14 AM [facility] LAB eGFR 97 >=60 mL/min/1. 73m2 LAB CHEMISTRY METHOD 03/01/2025 11:14 AM [facility] LAB Comment:Calculation based on the Chronic Kidney Disease Epidemiology Collaboration (CKD-EPI) equation refit without adjustment for race. BUN/Creatinine Ratio 32.9 LAB CHEMISTRY METHOD 03/01/2025 11:14 AM [facility] LAB Calcium 8.5 8.5 - 10.5 mg/dL LAB CHEMISTRY METHOD 03/01/2025 11:14 AM [facility] LAB Blood Venous blood specimen / Unknown Venipuncture / Unknown 03/01/2025 6:05 AM EDT 03/01/2025 8:40 AM EDT us Preeti Lujan MD LAB BLOOD ORDERABLES Fin al Result [facility] LAB [address] [place] [address], documented in this encounter Visit Diagnoses Diagnosis Essential (primary) hypertension Unspecified essential hypertension documented in this encounter Care Teams Railroad Purchasing Agent Relationship Specialty Start Date End Date Tram Álvarez MD 2 [facility] , [address] Physician Associ D/B/A: [facility] JAS Duque PCP - General Internal Medicine 03/30/18 documented as of this encounter
--- OUTSIDE RECORDS SUMMARY | 2025-06-01 16:52 | XMS_ITS | Encounter Summary ---
Author Organization [facility] Address [address] [place] [address] Care Team Providers Care Haunted History Tour Guide Name Role Phone Tram Álvarez MD Primary Care Provider [phone] Encounter Details Date Type Department Care Team (Late st Contact Info) Description 02/24/2025 Lab Requisition [facility] - Main Lab 299 [facility] [place] [address] Preeti Lujan MD [address] [phone] Essential (primary) hypertension Social History Tobacco Use [...] LAB CHEMISTRY METHOD 02/24/2025 9:39 AM EDT [facility] LAB Potassium 6.0(H) 3.5 - 5.5 mmol/L LAB CHEMISTRY METHOD 02/24/2025 9:39 AM EDT [facility] LAB Chloride 110 96 [...] al Result [facility] [address] [place] [address], * (ABNORMAL) Complete blood count (02/24/2025 6:34 AM EDT) WBC 7.9 4.8 - 10.8 K/mcL LAB HEMETOLOGY METHOD 02/24/2025 9:35 AM [facility] LAB RBC 3.90(L) 4.50 - 5.50 M/[facility] LAB HEMETOLOGY METHOD 02/24/2025 9:35 AM [facility] LAB Platelets 287 130 - 400 K/[facility] LAB HEMETOLOGY METHOD 02/24/2025 9:35 AM [facility] LAB MPV 12.9(H) 7.0 - 11.0 FL LAB HEMETOLOGY METHOD 02/24/2025 9:35 AM [facility] LAB NRBC 0.0 <1.0 % LAB HEMETOLOGY METHOD 02/24/2025 9:35 AM [facility] LAB NRBC Absolute 0.00 <0.10 K/[facility] LAB HEMETOLOGY METHOD 02/24/2025 9:35 AM EDT [facility] LAB Blood Venous blood specimen / Unknown Venipuncture / Unknown 02/24/2025 6:34 AM EDT 02/24/2025 8:31 AM EDT us Preeti Lujan MD LAB BLOOD ORDERABLES Fin al Result [facility] LAB [address] [place] [address], documented in this encounter Visit Diagnoses Diagnosis Essential (primary) hypertension Unspecified essential hypertension documented in this encounter Care Teams Haunted History Tour Guide Relationship Specialty Start Date End Date Tram Álvarez MD [address] [place] [address] , [address] Physician Associ D/B/A: [facility] [place] PCP - General Internal Medicine 03/30/18 documented as of this encounter
--- OUTSIDE RECORDS SUMMARY | 2025-06-01 16:52 | XMS_ITS | Encounter Summary ---
Author Organization [facility] Address [address] [place] [address] Care Team Providers Care Commercial Installer Name Role Phone Tram Álvarez MD Primary Care Provider [phone] Encounter Details Date Type Department Care Team (Late st Contact Info) Description 10/18/2024 Lab Requisition [facility] - Main Lab [address] [place] [address] Preeti Lujan MD [address] [phone] Sepsis, unspecified organism (CMS/HCC V24, CMS/HCC V28) [...] CHEMISTRY METHOD 10/18/2024 1:15 PM EDT [facility] Potassium 4.0 3.5 - 5.5 mmol/L LAB CHEMISTRY METHOD 10/18/2024 1:15 PM [facility] LAB Chloride 113(H) 96 - 110 mmol/L LAB CHEMISTRY METHOD 10/18/2024 1:15 PM [facility] LAB CO2 22 21 - 32 mmol/L LAB CHEMISTRY METHOD 10/18/2024 1:15 PM [facility] LAB Anion Gap 7 3 - 11 LAB CHEMISTRY METHOD 10/18/2024 1:15 PM [facility] LAB Glucose 114(H) 70 - 100 mg/dL LAB CHEMISTRY METHOD 10/18/2024 1:15 PM [facility] LAB BUN 12 5 - 25 mg/dL LAB CHEMISTRY METHOD 10/18/2024 1:15 PM [facility] LAB Creatinine 0.58(L) 0.70 - 1.30 mg/dL LAB CHEMISTRY METHOD 10/18/2024 1:15 PM [facility] LAB eGFR 106 >=60 mL/min/1. 73m2 LAB CHEMISTRY METHOD 10/18/2024 1:15 PM [facility] LAB Comment:Calculation based on the Chronic Kidney Disease Epidemiology Collaboration (CKD-EPI) equation refit without adjustment for race. BUN/Creatinine Ratio 20.7 LAB CHEMISTRY METHOD 10/18/2024 1:15 PM [facility] LAB Calcium 8.7 8.5 - 10.5 mg/dL LAB CHEMISTRY METHOD 10/18/2024 1:15 PM [facility] LAB Blood Venous blood specimen / Unknown Venipuncture / Unknown 10/18/2024 9:03 AM EDT 10/18/2024 11:02 AM EDT us Preeti Lujan MD LAB BLOOD ORDERABLES Fin al Result [facility] LAB [address] [place] [address], * (ABNORMAL) Complete blood count (10/18/2024 9:03 AM EDT) [facility] WBC 5.9 4.8 - 10.8 K/mcL LAB HEMETOLOGY METHOD 10/18[facility]2024 1[facility] RBC 3.40(L) 4.50 - 5.50 M/mcL LAB HEMETOLOGY METHOD 10/18/2024 1:35 PM [facility] Hemoglobin 10.1(L) 13.5 - 17.5 g/dL LAB HEMETOLOGY METHOD 10/18/2024 1:35 PM [facility] LAB Hematocrit 32.3(L) 42.0 - 54.0 % LAB HEMETOLOGY METHOD 10/18/2024 1:35 PM [facility] LAB MCV 96.4 79.0 - 98.0 FL LAB HEMETOLOGY METHOD 10/18/2024 1:35 PM EDT [facility] LAB MCH 30.1 27.0 - 32.0 pcg LAB HEMETOLOGY METHOD 10/18/2024 1:35 PM [facility] LAB MCHC 31.3(L) 32.0 - 37.0 g/dL LAB HEMETOLOGY METHOD 10/18/2024 1:35 PM [facility] LAB RDW 18.2(H) 11.0 - 15.0 % LAB HEMETOLOGY METHOD 10/18/2024 1:35 PM [facility] Platelets 275 130 - 400 K/mcL LAB HEMETOLOGY METHOD 10/18/2024 1:35 PM [facility] LAB MPV 13.2(H) 7.0 - 11.0 FL LAB HEMETOLOGY METHOD 10/18/2024 1:35 PM [facility] LAB NRBC 0.0 <1.0 % LAB HEMETOLOGY METHOD 10/18/2024 1:35 PM EDT [facility] LAB NRBC Absolute 0.00 <0.10 K/mcL LAB HEMETOLOGY METHOD 10/18/2024 1:35 PM EDT [facility] LAB Blood Venous blood specimen / Unknown Venipuncture / Unknown 10/18/2024 9:03 AM EDT 10/18/2024 11:02 AM EDT us Preeti Lujan MD LAB BLOOD ORDERABLES Fin al Result [facility] LAB [address] [place] [address], documented in this encounter Visit Diagnoses Diagnosis Sepsis, unspecified organism (CMS/HCC V24, CMS/HCC V28) documented in this encounter Care Teams Commercial Installer Relationship Specialty Start Date End Date Tram Álvarez MD 2 [facility] , [address] [facility] Physician Associ D/B/A: [facility] JAS Duque PCP - General Internal Medicine 03/30/18 documented as of this encounter
--- OUTSIDE RECORDS SUMMARY | 2025-06-01 16:52 | XMS_ITS | Clinical Summary ---
Author Organization [facility] Address [address] [place] [address] Phone Care Team Providers Care Director Game Name Role Phone Tram Álvarez MD Primary Care Provider [phone] Encounters Date Type Department Care Team Description 04/27/2025 Lab Requisition [facility] Lab [address] [place] [address] Preeti Lujan MD Essential (primary) hypertension; Other disorders of electrolyte and fluid balance, not elsewhere classified 03/01/2025 Lab Requisition [facility] Lab [address] [place] [address] Preeti Lujan MD Essential (primary) [...] 03/01/2025 6:05 AM EDT Essential (primary) hypertension HEMOGLOBIN A1C Routine 10/22/2024 6:43 AM EDT Type 2 diabetes mellitus without complications ([facility] V24, [facility] V28) LIPID PANEL WITH REFLEX TO DIRECT LDL Routine 08/27/2024 6:34 AM EST Type 2 diabetes mellitus without complications ([facility]) from Last 3 Months or Most Recently Relevant to Health Maintenance Results * (ABNORMAL) Complete blood count (04/27/2025 6:36 AM EDT) [facility] Signature WBC 8.1 4.8 - 10.8 K/mcL LAB HEMETOLOGY METHOD 04/27/2025 9:53 AM [facility] LAB RBC 4.40(L) 4.50 - 5.50 M/mcL LAB HEMETOLOGY METHOD 04/27/2025 9:53 AM [facility] LAB Hemoglobin 12.6(L) 13.5 - 17.5 g/dL LAB HEMETOLOGY METHOD 04/27/2025 9:53 AM [facility] LAB Hematocrit 40.2(L) 42.0 - 54.0 % LAB HEMETOLOGY METHOD 04/27/2025 9:53 AM [facility] LAB MCV 91.8 79.0 - 98.0 FL LAB HEMETOLOGY METHOD 04/27/2025 9:53 AM [facility] LAB MCH 28.8 27.0 - 32.0 pcg LAB HEMETOLOGY METHOD 04/27/2025 9:53 AM [facility] LAB MCHC 31.3(L) 32.0 - 37.0 g/dL LAB HEMETOLOGY METHOD 04/27/2025 9:53 AM [facility] LAB RDW 15.0 11.0 - 15.0 % LAB HEMETOLOGY METHOD 04/27/2025 9:[address] [facility] LAB Platelets 230 130 - 400 K/mcL LAB HEMETOLOGY METHOD 04/27/2025 9:[address] [facility] LAB MPV 13.9(H) 7.0 - 11.0 FL LAB HEMETOLOGY METHOD 04/27/2025 9:[address] [facility] LAB NRBC 0.0 <1.0 % LAB HEMETOLOGY METHOD 04/27/2025 9:[address] [facility] LAB NRBC Absolute 0.00 <0.10 K/mcL LAB HEMETOLOGY METHOD 04/27/2025 9:[address] [facility] LAB Blood Venous blood specimen / Unknown Venipuncture / Unknown 04/27/2025 6:36 AM EDT 04/27/2025 9:12 AM EDT us Preeti Lujan MD LAB BLOOD ORDERABLES Fin al Result [facility] LAB [address] [place] [address], [place] [phone] * (ABNORMAL) Basic metabolic panel (04/27/2025 6:36 AM EDT) Only the most recent of2 resultswithin the time period is included. Sodium 139 133 - 145 mmol/L LAB CHEMISTRY METHOD 04/27/2025 10:[address] [facility] LAB Potassium 4.8 3.5 - 5.5 mmol/L LAB CHEMISTRY METHOD 04/27/2025 10:[address] [facility] Chloride 109 96 - 110 mmol/L LAB CHEMISTRY METHOD 04/27/2025 10:[address] [facility] CO2 26 21 - 32 mmol/L LAB CHEMISTRY METHOD 04/27/2025 10:[address] [facility] Anion Gap 4 3 - 11 LAB CHEMISTRY METHOD 04/27/2025 10:[address] [facility] Glucose 196(H) 70 - 100 mg/dL LAB CHEMISTRY METHOD 04/27/2025 10:49 AM [facility] LAB BUN 26(H) 5 - 25 mg/dL LAB CHEMISTRY METHOD 04/27/2025 10:49 AM [facility] LAB Creatinine 1.03 0.70 - 1.30 mg/dL LAB CHEMISTRY METHOD 04/27/2025 10:49 AM [facility] LAB eGFR 79 >=60 mL/min/1. 73m2 LAB CHEMISTRY METHOD 04/27/2025 10:49 AM [facility] LAB Comment:Calculation based on the Chronic Kidney Disease Epidemiology Collaboration (CKD-EPI) equation refit without adjustment for race. BUN/Creatinine Ratio 25.2 LAB CHEMISTRY METHOD 04/27/2025 10:49 AM [facility] LAB Calcium 9.2 8.5 - 10.5 mg/dL LAB CHEMISTRY METHOD 04/27/2025 10:49 AM [facility] LAB Blood Venous blood specimen / Unknown Venipuncture / Unknown 04/27/2025 6:36 AM EDT 04/27/2025 9:12 AM EDT us Preeti Lujan MD LAB BLOOD ORDERABLES Fin al Result [facility] [address] [place] [address], * Hemoglobin A1c (10/22/2024 6:43 AM EDT) [...] al Result [facility] [address] [place] [address], [place] [phone] * (ABNORMAL) Lipid panel with reflex to direct LDL (08/27/2024 6:34 AM EST) Cholesterol 96 0 - 200 mg/dL LAB CHEMISTRY METHOD 08/27/2024 9:[address] [facility] Triglycerides 249(H) 0 - 150 mg/dL LAB CHEMISTRY METHOD 08/27/2024 9:[address] [facility] HDL 30(L) >=40 mg/dL LAB [...] 4.4 LAB CHEMISTRY METHOD 08/27/2024 9:27 AM [facility] LAB Blood Venous blood specimen / Unknown Venipuncture / Unknown 08/27/2024 6:34 AM EST 08/27/2024 8:52 AM EST us Prince Le MD LAB BLOOD ORDERABLES Final [facility]ul t [facility] [address] [place] [address], from Last 3 Months or Most Recently Relevant to Health Maintenance Insurance [employer] Member Subscriber Plan / Payer (Ef fective 2023-Present) Name:EDER GARCIA Relation to Subscriber:Self Name:Eder Garcia Payer ID:[id number] Group ID:[id number] Type:Not on file Address: [place] [address] [place] [id number] Care Teams Director Game Relationship Specialty Start Date End Date Tram Álvarez MD 2 [facility] , [address] Physician Associ D/B/A: [facility] [place] PCP - General Internal Medicine 03/30/18
--- OUTSIDE RECORDS SUMMARY | 2025-06-01 16:52 | XMS_ITS | Encounter Summary ---
Author Organization [facility] Address [address] [place] [address] Care Team Providers Care Gas Substation Operator Name Role Phone Tram Álvarez MD Primary Care Provider [phone] Encounter Details Date Type Department Care Team (Late st Contact Info) Description 08/19/[address] [facility] - Main Lab 299 [facility] [place] [address] Prince Le MD 38 [facility] [address] [place], [address] Type 2 diabetes mellitus without complications [...] mg/dL LAB CHEMISTRY METHOD 08/20/2024 11:12 AM [facility] Blood Venous blood specimen / Unknown Venipuncture / Unknown 08/20/2024 7:39 AM EST 08/20/2024 10:36 AM EST us Prince Le MD LAB BLOOD ORDERABLES Final Resul t [facility] LAB [address] [place] [address], [place] [phone] * (ABNORMAL) Comprehensive metabolic panel (08/20/2024 7:39 AM EST) Sodium 139 133 - 145 mmol/L LAB CHEMISTRY METHOD 08/20/2024 11:11 AM [facility] Potassium 4.5 3.5 - 5.5 mmol/L LAB CHEMISTRY METHOD 08/20/2024 11:11 AM [facility] Chloride 109 96 - 110 mmol/L LAB CHEMISTRY METHOD 08/20/2024 11:11 AM [facility] CO2 26 21 - 32 mmol/L LAB CHEMISTRY METHOD 08/20/2024 11:11 AM [facility] LAB Anion Gap 4 3 - 11 LAB CHEMISTRY METHOD 08/20/2024 11:11 AM [facility] Glucose 120(H) 70 - 100 mg/dL LAB CHEMISTRY METHOD 08/20/2024 11:11 AM [facility] BUN 22 5 - 25 mg/dL LAB CHEMISTRY METHOD 08/20/2024 11:11 AM [facility] Creatinine 0.78 0.70 - 1.30 mg/dL LAB CHEMISTRY METHOD 08/20/2024 11:11 AM [facility] LAB eGFR 97 >=60 mL/min/1. 73m2 LAB CHEMISTRY METHOD 08/20/2024 11:11 AM [facility] LAB Comment:Calculation based on the Chronic Kidney Disease Epidemiology Collaboration (CKD-EPI) equation refit without adjustment for race. BUN/Creatinine Ratio 28.2 LAB CHEMISTRY METHOD 08/20/2024 11:11 AM [facility] Calcium 9.3 8.5 - 10.5 mg/dL LAB CHEMISTRY METHOD 08/20/2024 11:11 AM [facility] LAB AST (SGOT) 35 10 - 42 unit/L LAB CHEMISTRY METHOD 08/20/2024 11:11 AM [facility] ALT (SGPT) 30 10 - 60 unit/L LAB CHEMISTRY METHOD 08/20/2024 11:11 AM [facility] Alkaline Phosphatase 39(L) 42 - 121 unit/L LAB CHEMISTRY METHOD 08/20/2024 11:11 AM [facility] Total Protein 6.6 6.0 - 8.0 g/dL LAB CHEMISTRY METHOD 08/20/2024 11:11 AM [facility] Albumin 3.5 3.2 - 5.0 g/dL LAB CHEMISTRY METHOD 08/20/2024 11:11 AM [facility] Total Bilirubin 0.8 0.0 - 1.4 mg/dL LAB CHEMISTRY METHOD 08/20/2024 11:11 AM [facility] Blood Venous blood specimen / Unknown Venipuncture / Unknown 08/20/2024 7:39 AM EST 08/20/2024 10:36 AM EST us Prince Le MD LAB BLOOD ORDERABLES Final Resul t [facility] LAB [address] [place] [address], * (ABNORMAL) Complete blood count (08/20/2024 7:39 AM EST) WBC 13.2(H) 4.8 - 10.8 K/mcL LAB HEMETOLOGY METHOD 08/20/2024 10:52 AM [facility] RBC 3.90(L) 4.50 - 5.50 M/mcL LAB HEMETOLOGY METHOD 08/20/2024 10:52 AM [facility] LAB Hemoglobin 11.0(L) 13.5 - 17.5 g/dL LAB HEMETOLOGY METHOD 08/20/2024 10:52 AM [facility] LAB Hematocrit 33.1(L) 42.0 - 54.0 % LAB HEMETOLOGY METHOD 08/20/2024 10:52 AM [facility] LAB MCV 85.3 79.0 - 98.0 FL LAB HEMETOLOGY METHOD 08/20/2024 10:52 AM [facility] LAB MCH 28.4 27.0 - 32.0 pcg LAB HEMETOLOGY METHOD 08/20/2024 10:52 AM [facility] LAB MCHC 33.2 32.0 - 37.0 g/dL LAB HEMETOLOGY METHOD 08/20/2024 10:52 AM [facility] LAB RDW 20.9(H) 11.0 - 15.0 % LAB HEMETOLOGY METHOD 08/20/2024 10:52 AM [facility] LAB Platelets 329 130 - 400 K/mcL LAB HEMETOLOGY METHOD 08/20/2024 10:52 AM [facility] LAB MPV 13.2(H) 7.0 - 11.0 FL LAB HEMETOLOGY METHOD 08/20/2024 10:52 AM [facility] LAB NRBC 0.0 <1.0 % LAB HEMETOLOGY METHOD 08/20/2024 10:52 AM [facility] LAB NRBC Absolute 0.00 <0.10 K/mcL LAB HEMETOLOGY METHOD 08/20/2024 10:52 AM [facility] Blood Venous blood specimen / Unknown Venipuncture / Unknown 08/20/2024 7:39 AM EST 08/20/2024 10:36 AM EST us Prince Le MD LAB BLOOD ORDERABLES Final Resul t [facility] ([facility]) [facility] LAB [address] [place] [address], documented in this encounter Visit Diagnoses Diagnosis Type 2 diabetes mellitus without complications (CMS/HCC V24, CMS/HCC V28) documented in this encounter Care Teams Gas Substation Operator Relationship Specialty Start Date End Date Tram Álvarez MD 2 [facility] , [address] [facility] Physician Associ D/B/A: [facility] JAS Duque PCP - General Internal Medicine 03/30/18 documented as of this encounter
--- OUTSIDE RECORDS SUMMARY | 2025-06-01 16:52 | XMS_ITS | Encounter Summary ---
Author Organization [facility] Address [address] [place] [address] Care Team Providers Care Oncology Navigator Name Role Phone Tram Álvarez MD Primary Care Provider [phone] Encounter Details Date Type Department Care Team (Late st Contact Info) Description 08/12/2024 Lab Requisition [facility] - Main Lab 299 [facility] [place] [address] Prince Le MD 38 [facility] [address] [place], [address] Type 2 diabetes mellitus without complications [...] mg/dL LAB CHEMISTRY METHOD 08/13/2024 11:[address] [facility] Blood Venous blood specimen / Unknown Venipuncture / Unknown 08/13/2024 7:38 AM EST 08/13/2024 11:02 AM EST us Prince eL MD LAB BLOOD ORDERABLES Final Resul t [facility] LAB [address] [place] [address], [place] [phone] * (ABNORMAL) Comprehensive metabolic panel (08/13/2024 7:38 AM EST) Sodium 137 133 - 145 mmol/L LAB CHEMISTRY METHOD 08/13/2024 11:[address] [facility] Potassium 5.1 3.5 - 5.5 mmol/L LAB CHEMISTRY METHOD 08/13/2024 11:[address] [facility] Chloride 103 96 - 110 mmol/L LAB CHEMISTRY METHOD 08/13/2024 11:[address] [facility] CO2 29 21 - 32 mmol/L LAB CHEMISTRY METHOD 08/13/2024 11:[address] [facility] LAB Anion Gap 5 3 - 11 LAB CHEMISTRY METHOD 08/13/2024 11:[address] [facility] Glucose 90 70 - 100 mg/dL LAB CHEMISTRY METHOD 08/13/2024 11:[address] [facility] BUN 31(H) 5 - 25 mg/dL LAB CHEMISTRY METHOD 08/13/2024 11:[address] [facility] Creatinine 0.98 0.70 - 1.30 mg/dL LAB CHEMISTRY METHOD 08/13/2024 11:[address] [facility] LAB eGFR 84 >=60 mL/min/1. 73m2 LAB CHEMISTRY METHOD 08/13/2024 11:[address] [facility] LAB Comment:Calculation based on the Chronic Kidney Disease Epidemiology Collaboration (CKD-EPI) equation refit without adjustment for race. BUN/Creatinine Ratio 31.6 LAB CHEMISTRY METHOD 08/13/2024 11:[address] [facility] Calcium 9.2 8.5 - 10.5 mg/dL LAB CHEMISTRY METHOD 08/13/2024 11:[address] [facility] AST (SGOT) 36 10 - 42 unit/L LAB CHEMISTRY METHOD 08/13/2024 11:[address] [facility] ALT (SGPT) 32 10 - 60 unit/L LAB CHEMISTRY METHOD 08/13/2024 11:[address] [facility] Alkaline Phosphatase 47 42 - 121 unit/L LAB CHEMISTRY METHOD 08/13/2024 11:[address] [facility] Total Protein 6.4 6.0 - 8.0 g/dL LAB CHEMISTRY METHOD 08/13/2024 11:[address] [facility] Albumin 3.4 3.2 - 5.0 g/dL LAB CHEMISTRY METHOD 08/13/2024 11:[address] [facility] Total Bilirubin 0.6 0.0 - 1.4 mg/dL LAB CHEMISTRY METHOD 08/13/2024 11:[address] [facility] Blood Venous blood specimen / Unknown Venipuncture / Unknown 08/13/2024 7:38 AM EST 08/13/2024 11:02 AM EST us Prince Le MD LAB BLOOD ORDERABLES Final Resul t [facility] LAB [address] [place] [address], * (ABNORMAL) Complete blood count (08/13/2024 7:30 AM EST) WBC 8.4 4.8 - 10.8 K/mcL LAB HEMETOLOGY METHOD 08/13/2024 11:[address] [facility] RBC 4.20(L) 4.50 - 5.50 M/mcL LAB HEMETOLOGY METHOD 08/13/2024 11:[address] [facility] Hemoglobin 11.6(L) 13.5 - 17.5 g/dL LAB HEMETOLOGY METHOD 08/13/2024 11:[address] [facility] LAB Hematocrit 36.1(L) 42.0 - 54.0 % LAB HEMETOLOGY METHOD 08/13/2024 11:[address] [facility] LAB MCV 86.2 79.0 - 98.0 FL LAB HEMETOLOGY METHOD 08/13/2024 11:[address] [facility] MCH 27.7 27.0 - 32.0 pcg LAB HEMETOLOGY METHOD 08/13/2024 11:[address] [facility] LAB MCHC 32.1 32.0 - 37.0 g/dL LAB HEMETOLOGY METHOD 08/13/2024 11:[address] [facility] LAB RDW 21.2(H) 11.0 - 15.0 % LAB HEMETOLOGY METHOD 08/13/2024 11:[address] [facility] LAB Platelets 338 130 - 400 K/mcL LAB HEMETOLOGY METHOD 08/13/2024 11:[address] [facility] LAB MPV 12.8(H) 7.0 - 11.0 FL LAB HEMETOLOGY METHOD 08/13/2024 11:[address] [facility] LAB NRBC 0.0 <1.0 % LAB HEMETOLOGY METHOD 08/13/2024 11:[address] [facility] LAB NRBC Absolute 0.00 <0.10 K/mcL LAB HEMETOLOGY METHOD 08/13/2024 11:[address] [facility] LAB Blood Venous blood specimen / Unknown Venipuncture / Unknown 08/13/2024 7:30 AM EST 08/13/2024 10:59 AM EST us Prince Le MD LAB BLOOD ORDERABLES Final Resul t [facility] LAB [address] [place] [address], [place] [phone] documented in this encounter Visit Diagnoses Diagnosis Type 2 diabetes mellitus without complications (CMS/HCC V24, CMS/HCC V28) documented in this encounter Care Teams Oncology Navigator Relationship Specialty Start Date End Date Tram Álvarez MD 2 [facility] , [address] [facility] Physician Associ D/B/A: [facility] JAS Duque PCP - General Internal Medicine 03/30/18 documented as of this encounter
--- OUTSIDE RECORDS SUMMARY | 2025-06-01 16:52 | XMS_ITS | Clinical Summary ---
Author Organization [employer] [facility] Address [address] [facility] [address] [place] [address] Care Team Providers Care Bridge Game Director Name Role Phone Unavailable Primary Care Provider [...] Screening 10/04/1973 Diabetes: Urine Protein Screening 10/04/1974 RSV Patients and Patients Aged 60 years or older (1 - Risk 50-74 years 1-dose series) [...] age to complete this topic Insurance FOR[facility]LY [facility] OPTIONS (O D-SNP) JIM DIAZ [id number]
--- OUTSIDE RECORDS SUMMARY | 2025-06-01 16:52 | XMS_ITS | Encounter Summary ---
Author Organization [facility] Address [address] [place] [address] Care Team Providers Care Linoleum Layer Helper Name Role Phone Tram Álvarez MD Primary Care Provider [phone] Encounter Details Date Type Department Care Team (Late st Contact Info) Description 10/07/2024 Lab Requisition [facility] - Main Lab 299 [facility] [address] Prince Le MD 38 [facility] 204 [place], [address] Type 2 diabetes mellitus without complications [...] t [facility] LAB [address] [place] [address], [place] [phone] * (ABNORMAL) Basic metabolic panel (10/07/2024 5:18 AM EDT) Sodium 132(L) 133 - 145 mmol/L LAB CHEMISTRY METHOD 10/07/2024 10:16 AM T [facility] Potassium 5.0 [...] LAB CHEMISTRY METHOD 10/07/2024 10:16 AM EDT [facility] Calcium 8.9 8.5 - 10.5 mg/dL LAB CHEMISTRY METHOD 10/07/2024 10:16 AM EDT [facility] Blood Venous blood specimen / Unknown Venipuncture / Unknown 10/07/2024 5:18 AM EDT 10/07/2024 8:56 AM EDT us Prince Le MD LAB BLOOD ORDERABLES Final Resul t [facility] LAB [address] [place] [address], documented in this encounter Visit Diagnoses Diagnosis Type 2 diabetes mellitus without complications (CMS/HCC V24, CMS/HCC V28) documented in this encounter Care Teams Linoleum Layer Helper Relationship Specialty Start Date End Date Tram Álvarez MD 2 [facility] , [address] [facility] Physician Associ D/B/A: [facility] [place], [place] PCP - General Internal Medicine 03/30/18 documented as of this encounter
--- OUTSIDE RECORDS SUMMARY | 2025-06-01 16:52 | XMS_ITS | Encounter Summary ---
Author Organization [facility] Address [address] [place] [address] Care Team Providers Care Development Engineer Name Role Phone Tram Álvarez MD Primary Care Provider [phone] Encounter Details Date Type Department Care Team (Late st Contact Info) Description 11/09/2024 Lab Requisition [facility] - Main Lab 299 [facility] [place] [address] Prince Le MD 38 [facility] [address] [place], [address] Hyperlipidemia, unspecified Social History Tobacco Use [...] unspecified documented in this encounter Care Teams Development Engineer Relationship Specialty Start Date End Date Tram Álvarez MD [address] [place] [address] , [address] [facility] Physician Associ D/B/A: [facility] [place], [place] PCP - General Internal Medicine 03/30/18 documented as of this encounter
--- OUTSIDE RECORDS SUMMARY | 2025-06-01 16:52 | XMS_ITS | Encounter Summary ---
Author Organization [facility] Address [address] [place] [address] Care Team Providers Care Environmental Protection Economist Name Role Phone Tram Álvarez MD Primary Care Provider [phone] Encounter Details Date Type Department Care Team (Late st Contact Info) Description 10/22/2024 Lab Requisition [facility] - Main Lab [address] [place] [address] Preeti Lujan MD [address] [id number] Type 2 diabetes mellitus without complications (CMS/HCC [...] LAB CHEMISTRY METHOD 10/22/2024 2:03 PM EDT [facility] Mean Bld Glu Estim. 111 mg/dL LAB CHEMISTRY METHOD 10/22/2024 2:03 PM T [facility] LAB Blood Venous blood specimen / Unknown Venipuncture / Unknown 10/22/2024 6:43 AM EDT 10/22/2024 9:05 AM EDT us Preeti Lujan MD LAB BLOOD ORDERABLES Fin al Result [facility] ([facility]) [facility] LAB [address] [place] [address], documented in this encounter Visit Diagnoses Diagnosis Type 2 diabetes mellitus without complications (CMS/HCC V24, CMS/HCC V28) documented in this encounter Care Teams Environmental Protection Economist Relationship Specialty Start Date End Date Tram Álvarez MD 2 [facility] , [address] Physician Associ D/B/A: [facility] JAS Duque PCP - General Internal Medicine 03/30/18 documented as of this encounter
--- OUTSIDE RECORDS SUMMARY | 2025-06-01 16:52 | XMS_ITS | Encounter Summary ---
Author Organization [facility] Address [address] [place] [address] Care Team Providers Care Shirring Tender Name Role Phone Tram Álvarez MD Primary Care Provider Encounter Details Date Type Department Care Team (Late st Contact Info) Description 10/21/2024 Lab Requisition [facility] - Main Lab 299 [facility] [place] [address] Prince Le MD 38 [facility] 204 [place], [address] Type 2 diabetes mellitus without complications [...] V28) documented in this encounter Care Teams Shirring Tender Relationship Specialty Start Date End Date Tram Álvarez MD [address] [place] [address] , [address] [facility] Physician Associ D/B/A: [facility] [place], [place] PCP - General Internal Medicine 03/30/18 documented as of this encounter
--- OUTSIDE RECORDS SUMMARY | 2025-06-01 16:53 | XMS_ITS | Encounter Summary ---
Author Organization [facility] Address [address] [place] [address] Care Team Providers Care Animal Tech Name Role Phone Tram Álvarez MD Primary Care Provider [phone] Encounter Details Date Type Department Care Team (Late st Contact Info) Description 07/16/2024 Lab Requisition [facility] - Main Lab 299 [facility] [place] [address] Prince Le MD 38 [facility] 204 [place], [address] Type 2 diabetes mellitus [...] mg/dL LAB CHEMISTRY METHOD 07/16/2024 12:50 PM [facility] LAB Blood Venous blood specimen / Unknown Venipuncture / Unknown 07/16/2024 8:00 AM EST 07/16/2024 11:21 AM EST us Prince Le MD LAB BLOOD ORDERABLES Final Resul t [facility] LAB [address] [place] [address], [place] [phone] * (ABNORMAL) Comprehensive metabolic panel (07/16/2024 8:00 AM EST) Sodium 137 133 - 145 mmol/L LAB CHEMISTRY METHOD 07/16/2024 1:13 PM [facility] Potassium 5.1 3.5 - 5.5 mmol/L LAB CHEMISTRY METHOD 07/16/2024 1:13 PM [facility] Chloride 103 96 - 110 mmol/L LAB CHEMISTRY METHOD 07/16/2024 1:13 PM [facility] CO2 27 21 - 32 mmol/L LAB CHEMISTRY METHOD 07/16/2024 1:13 PM [facility] Anion Gap 7 3 - 11 LAB CHEMISTRY METHOD 07/16/2024 1:13 PM [facility] Glucose 40(L) 70 - 100 mg/dL LAB CHEMISTRY METHOD 07/16/2024 1:13 PM [facility] BUN 35(H) 5 - 25 mg/dL LAB CHEMISTRY METHOD 07/16/2024 1:13 PM [facility] Creatinine 1.27 0.70 - 1.30 mg/dL LAB CHEMISTRY METHOD 07/16/2024 1:13 PM [facility] LAB eGFR 62 >=60 mL/min/1. 73m2 LAB CHEMISTRY METHOD 07/16/2024 1:13 PM [facility] LAB Comment:Calculation based on the Chronic Kidney Disease Epidemiology Collaboration (CKD-EPI) equation refit without adjustment for race. BUN/Creatinine Ratio 27.6 LAB CHEMISTRY METHOD 07/16/2024 1:13 PM [facility] Calcium 9.0 8.5 - 10.5 mg/dL LAB CHEMISTRY METHOD 07/16/2024 1:13 PM [facility] AST (SGOT) 18 10 - 42 unit/L LAB CHEMISTRY METHOD 07/16/2024 1:13 PM [facility] ALT (SGPT) 19 10 - 60 unit/L LAB CHEMISTRY METHOD 07/16/2024 1:13 PM [facility] Alkaline Phosphatase 62 42 - 121 unit/L LAB CHEMISTRY METHOD 07/16/2024 1:13 PM [facility] Total Protein 6.7 6.0 - 8.0 g/dL LAB CHEMISTRY METHOD 07/16/2024 1:13 PM [facility] Albumin 3.5 3.2 - 5.0 g/dL LAB CHEMISTRY METHOD 07/16/2024 1:13 PM [facility] Total Bilirubin 0.4 0.0 - 1.4 mg/dL LAB CHEMISTRY METHOD 07/16/2024 1:13 PM [facility] Blood Venous blood specimen / Unknown Venipuncture / Unknown 07/16/2024 8:00 AM EST 07/16/2024 11:21 AM EST us Prince Le MD LAB BLOOD ORDERABLES Final Resul t [facility] LAB [address] [place] [address], * (ABNORMAL) Complete blood count (07/16/2024 8:00 AM EST) WBC 10.9(H) 4.8 - 10.8 K/mcL LAB HEMETOLOGY METHOD 07/16/2024 11:53 AM EST [facility] RBC 4.90 4.50 - 5.50 M/mcL LAB HEMETOLOGY METHOD 07/16/2024 11:53 AM [facility] Hemoglobin 13.4(L) 13.5 - 17.5 g/dL LAB HEMETOLOGY METHOD 07/16/2024 11:53 AM [facility] Hematocrit 41.6(L) 42.0 - 54.0 % LAB HEMETOLOGY METHOD 07/16/2024 11:53 AM [facility] MCV 85.1 79.0 - 98.0 FL LAB HEMETOLOGY METHOD 07/16/2024 11:53 AM [facility] MCH 27.4 27.0 - 32.0 pcg LAB HEMETOLOGY METHOD 07/16/2024 11:53 AM [facility] MCHC 32.2 32.0 - 37.0 g/dL LAB HEMETOLOGY METHOD 07/16/2024 11:53 AM [facility] RDW 18.3(H) 11.0 - 15.0 % LAB HEMETOLOGY METHOD 07/16/2024 11:53 AM [facility] Platelets 413(H) 130 - 400 K/mcL LAB HEMETOLOGY METHOD 07/16/2024 11:53 AM [facility] MPV 12.4(H) 7.0 - 11.0 FL LAB HEMETOLOGY METHOD 07/16/2024 11:53 AM [facility] NRBC 0.0 <1.0 % LAB HEMETOLOGY METHOD 07/16/2024 11:53 AM [facility] NRBC Absolute 0.00 <0.10 K/mcL LAB HEMETOLOGY METHOD 07/16/2024 11:53 AM [facility] Blood Venous blood specimen / Unknown Venipuncture / Unknown 07/16/2024 8:00 AM EST 07/16/2024 11:21 AM EST us Prince Le MD LAB BLOOD ORDERABLES Final Resul t [facility] ([facility]) [facility] LAB [address] [place] [address], documented in this encounter Visit Diagnoses Diagnosis Type 2 diabetes mellitus without complications (CMS/HCC V24, CMS/HCC V28) documented in this encounter Care Teams Animal Tech Relationship Specialty Start Date End Date Tram Álvarez MD 2 [facility] , [address] [facility] Physician Associ D/B/A: [facility] JAS Duque PCP - General Internal Medicine 03/30/18 documented as of this encounter
--- OUTSIDE RECORDS SUMMARY | 2025-06-01 16:53 | XMS_ITS | Encounter Summary ---
Author Organization [facility] Address [address] [place] [address] Care Team Providers Care Fruit Or Nut Grower Name Role Phone Tram Álvarez MD Primary Care Provider Encounter Details Date Type Department Care Team (Late st Contact Info) Description 09/23/2024 Lab Requisition [facility] - Main Lab 299 [facility] [place] [address] Prince Le MD 38 [facility] [address] [place], [address] Type 2 diabetes mellitus without complications [...] mg/dL LAB CHEMISTRY METHOD 09/24/2024 12:40 PM [facility] LAB Blood Venous blood specimen / Unknown Venipuncture / Unknown 09/24/2024 5:45 AM EDT 09/24/2024 9:53 AM EDT us Prince Le MD LAB BLOOD ORDERABLES Final Resul t [facility] LAB [address] [place] [address], * (ABNORMAL) Comprehensive metabolic panel (09/24/2024 5:45 [...] LAB CHEMISTRY METHOD 09/24/2024 12:42 PM EDT [facility] Calcium 8.9 8.5 [...] [facility] [address] [place] [address], * (ABNORMAL) Complete blood count (09/24/2024 5:45 [...] LAB BLOOD ORDERABLES Final Resul t [facility] ([facility]) [facility] [address] [place] [address], documented in this encounter Visit Diagnoses Diagnosis Type 2 diabetes mellitus without complications (CMS/HCC V24, CMS/HCC V28) documented in this encounter Care Teams Fruit Or Nut Grower Relationship Specialty Start Date End Date Tram Álvarez MD 2 [facility] , [address] Physician Associ D/B/A: [facility] [place], [place] PCP - General Internal Medicine 03/30/18 documented as of this encounter
--- OUTSIDE RECORDS SUMMARY | 2025-06-01 16:53 | XMS_ITS | Encounter Summary ---
Author Organization [facility] Address [address] [place] [address] Care Team Providers Care Apartment Property Manager Name Role Phone Tram Álvarez MD Primary Care Provider [phone] Encounter Details Date Type Department Care Team (Late st Contact Info) Description 11/05/2024 Lab Requisition [facility] - Main Lab [address] [place] [address] Preeti Lujan MD [address] [id number] Pneumonia, unspecified organism Social History Tobacco Use [...] LAB CHEMISTRY METHOD 11/05/2024 11:23 AM EDT [facility] Potassium 3.8 3.5 - 5.5 mmol/L LAB CHEMISTRY METHOD 11/05/2024 11:23 AM [facility] Chloride 112(H) 96 - 110 mmol/L LAB CHEMISTRY METHOD 11/05/2024 11:23 AM [facility] CO2 19(L) 21 - 32 mmol/L LAB CHEMISTRY METHOD 11/05/2024 11:23 AM [facility] Anion Gap 11 3 - 11 LAB CHEMISTRY METHOD 11/05/2024 11:23 AM [facility] Glucose 121(H) 70 - 100 mg/dL LAB CHEMISTRY METHOD 11/05/2024 11:23 AM [facility] BUN 22 5 - 25 mg/dL LAB CHEMISTRY METHOD 11/05/2024 11:23 AM [facility] Creatinine 0.58(L) 0.70 - 1.30 mg/dL LAB CHEMISTRY METHOD 11/05/2024 11:23 AM [facility] LAB eGFR 106 >=60 mL/min/1. 73m2 LAB CHEMISTRY METHOD 11/05/2024 11:23 AM [facility] LAB Comment:Calculation based on the Chronic Kidney Disease Epidemiology Collaboration (CKD-EPI) equation refit without adjustment for race. BUN/Creatinine Ratio 37.9 LAB CHEMISTRY METHOD 11/05/2024 11:23 AM [facility] Calcium 9.3 8.5 - 10.5 mg/dL LAB CHEMISTRY METHOD 11/05/2024 11:23 AM [facility] Blood Venous blood specimen / Unknown Venipuncture / Unknown 11/05/2024 8:07 AM EDT 11/05/2024 9:58 AM EDT us Preeti Lujan MD LAB BLOOD ORDERABLES Fin al Result [facility] [address] [place] [address], documented in this encounter Visit Diagnoses Diagnosis Pneumonia, unspecified organism documented in this encounter Care Teams Apartment Property Manager Relationship Specialty Start Date End Date Tram Álvarez MD 2 [facility] , [address] [facility] Physician Associ D/B/A: [facility] JAS Duque PCP - General Internal Medicine 03/30/18 documented as of this encounter
--- OUTSIDE RECORDS SUMMARY | 2025-06-01 16:53 | XMS_ITS | Encounter Summary ---
Author Organization [facility] Address [address] [place] [address] Care Team Providers Care Ham Facer Name Role Phone Tram Álvarez MD Primary Care Provider Encounter Details Date Type Department Care Team (Late st Contact Info) Description 11/11/2024 Lab Requisition [facility] - Main Lab [address] [place] [address] Preeti Lujan MD [address] [phone] Chronic kidney disease, unspecified Social History Tobacco [...] mmol/L LAB CHEMISTRY METHOD 11/11/2024 11:32 AM [facility] CO2 22 21 - 32 mmol/L LAB CHEMISTRY METHOD 11/11/2024 11:32 AM [facility] Anion Gap 9 3 - 11 LAB CHEMISTRY METHOD 11/11/2024 11:32 AM [facility] Glucose 177(H) 70 - 100 mg/dL LAB CHEMISTRY METHOD 11/11/2024 11:32 AM [facility] BUN 20 5 - 25 mg/dL LAB CHEMISTRY METHOD 11/11/2024 11:32 AM [facility] Creatinine 0.67(L) 0.70 - 1.30 mg/dL LAB CHEMISTRY METHOD 11/11/2024 11:32 AM [facility] eGFR 101 >=60 mL/min/1. 73m2 LAB CHEMISTRY METHOD 11/11/2024 11:32 AM [facility] Comment:Calculation based on the Chronic Kidney Disease Epidemiology Collaboration (CKD-EPI) equation refit without adjustment for race. BUN/Creatinine Ratio 29.9 LAB CHEMISTRY METHOD 11/11/2024 11:32 AM [facility] Calcium 8.7 8.5 - 10.5 mg/dL LAB CHEMISTRY METHOD 11/11/2024 11:32 AM [facility] Blood Venous blood specimen / Unknown Venipuncture / Unknown 11/11/2024 6:41 AM EDT 11/11/2024 9:11 AM EDT us Preeti Lujan MD LAB BLOOD ORDERABLES Fin al Result [facility] [address] [place] [address], * (ABNORMAL) Complete blood count (11/11/2024 6:41 AM EDT) WBC 8.1 4.8 - 10.8 K/mcL LAB HEMETOLOGY METHOD 11/11/2024 10:28 AM [facility] RBC 3.80(L) 4.50 - 5.50 M/mcL LAB HEMETOLOGY METHOD 11/11/2024 10:28 AM [facility] Hemoglobin 11.5(L) 13.5 - 17.5 g/dL LAB HEMETOLOGY METHOD 11/11/2024 10:28 AM [facility] Hematocrit 35.8(L) 42.0 - 54.0 % LAB HEMETOLOGY METHOD 11/11/2024 10:28 AM [facility] MCV 93.2 79.0 - 98.0 FL LAB HEMETOLOGY METHOD 11/11/2024 10:28 AM [facility] MCH 29.9 27.0 - 32.0 pcg LAB HEMETOLOGY METHOD 11/11/2024 10:28 AM [facility] LAB MCHC 32.1 32.0 - 37.0 g/dL LAB HEMETOLOGY METHOD 11/11/2024 10:28 AM [facility] RDW 16.4(H) 11.0 - 15.0 % LAB HEMETOLOGY METHOD 11/11/2024 10:28 AM [facility] LAB Platelets 314 130 - 400 K/[facility] LAB HEMETOLOGY METHOD 11/11/2024 10:28 AM [facility] MPV 12.3(H) 7.0 - 11.0 FL LAB HEMETOLOGY METHOD 11/11/2024 10:28 AM [facility] LAB NRBC 0.0 <1.0 % LAB HEMETOLOGY METHOD 11/11/2024 10:28 AM [facility] LAB NRBC Absolute 0.00 <0.10 K/mcL LAB HEMETOLOGY METHOD 11/11/2024 10:[address] [facility] Blood Venous blood specimen / Unknown Venipuncture / Unknown 11/11/2024 6:41 AM EDT 11/11/2024 9:11 AM EDT us Preeti Lujan MD LAB BLOOD ORDERABLES Fin al Result [facility] [address] [place] [address], documented in this encounter Visit Diagnoses Diagnosis Chronic kidney disease, unspecified documented in this encounter Care Teams Ham Facer Relationship Specialty Start Date End Date Tram Álvarez MD 2 [facility] [address] Physician Associ D/B/A: [facility] [place], [place] PCP - General Internal Medicine 03/30/18 documented as of this encounter
--- OUTSIDE RECORDS SUMMARY | 2025-06-01 16:53 | XMS_ITS | Encounter Summary ---
Author Organization [facility] Address [address] [place] [address] Care Team Providers Care Assistant Manager Name Role Phone Tram Álvarez MD Primary Care Provider [phone] Encounter Details Date Type Department Care Team (Late st Contact Info) Description 09/16/2024 Lab Requisition [facility] - Main Lab [address] [facility] [place] [address] Prince Le MD 38 [facility] [address] [place], [address] Type 2 diabetes mellitus without complications [...] mg/dL LAB CHEMISTRY METHOD 09/17/2024 11:32 AM [facility] Blood Venous blood specimen / Unknown Venipuncture / Unknown 09/17/2024 8:06 AM EDT 09/17/2024 10:22 AM EDT us Prince Le MD LAB BLOOD ORDERABLES Final Resul t [facility] [address] [place] [address], [place] [phone] * (ABNORMAL) Comprehensive metabolic panel (09/17/2024 8:06 AM EDT) Sodium 139 133 - 145 mmol/L LAB CHEMISTRY METHOD 09/17/2024 11:27 AM [facility] Potassium 4.6 3.5 - 5.5 mmol/L LAB CHEMISTRY METHOD 09/17/2024 11:27 AM [facility] Chloride 103 96 - 110 mmol/L LAB CHEMISTRY METHOD 09/17/2024 11:27 AM [facility] CO2 30 21 - 32 mmol/L LAB CHEMISTRY METHOD 09/17/2024 11:27 AM [facility] Anion Gap 6 3 - 11 LAB CHEMISTRY METHOD 09/17/2024 11:27 AM [facility] Glucose 93 70 - 100 mg/dL LAB CHEMISTRY METHOD 09/17/2024 11:27 AM [facility] BUN 21 5 - 25 mg/dL LAB CHEMISTRY METHOD 09/17/2024 11:27 AM [facility] Creatinine 0.97 0.70 - 1.30 mg/dL LAB CHEMISTRY METHOD 09/17/2024 11:27 AM [facility] LAB eGFR 85 >=60 mL/min/1. 73m2 LAB CHEMISTRY METHOD 09/17/2024 11:27 AM [facility] Comment:Calculation based on the Chronic Kidney Disease Epidemiology Collaboration (CKD-EPI) equation refit without adjustment for race. BUN/Creatinine Ratio 21.6 LAB CHEMISTRY METHOD 09/17/2024 11:27 AM [facility] Calcium 9.0 8.5 - 10.5 mg/dL LAB CHEMISTRY METHOD 09/17/2024 11:27 AM [facility] AST (SGOT) 20 10 - 42 unit/L LAB CHEMISTRY METHOD 09/17/2024 11:27 AM [facility] ALT (SGPT) 19 10 - 60 unit/L LAB CHEMISTRY METHOD 09/17/2024 11:27 AM [facility] Alkaline Phosphatase 67 42 - 121 unit/L LAB CHEMISTRY METHOD 09/17/2024 11:27 AM [facility] Total Protein 6.1 6.0 - 8.0 g/dL LAB CHEMISTRY METHOD 09/17/2024 11:27 AM [facility] Albumin 2.8(L) 3.2 - 5.0 g/dL LAB CHEMISTRY METHOD 09/17/2024 11:27 AM [facility] Total Bilirubin 0.4 0.0 - 1.4 mg/dL LAB CHEMISTRY METHOD 09/17/2024 11:27 AM [facility] Blood Venous blood specimen / Unknown Venipuncture / Unknown 09/17/2024 8:06 AM EDT 09/17/2024 10:22 AM EDT us Prince Le MD LAB BLOOD ORDERABLES Final Resul t [facility] [address] [place] [address], * (ABNORMAL) Complete blood count (09/17/2024 8:06 AM EDT) WBC 9.2 4.8 - 10.8 K/[facility] LAB HEMETOLOGY METHOD 09/17/2024 10:35 AM [facility] RBC 3.80(L) 4.50 - 5.50 M/[facility] LAB HEMETOLOGY METHOD 09/17/2024 10:35 AM [facility] Hemoglobin 11.3(L) 13.5 - 17.5 g/dL LAB HEMETOLOGY METHOD 09/17/2024 10:35 AM [facility] LAB Hematocrit 35.1(L) 42.0 - 54.0 % LAB HEMETOLOGY METHOD 09/17/2024 10:35 AM [facility] LAB MCV 93.6 79.0 - 98.0 FL LAB HEMETOLOGY METHOD 09/17/2024 10:35 AM [facility] LAB MCH 30.1 27.0 - 32.0 pcg LAB HEMETOLOGY METHOD 09/17/2024 10:35 AM [facility] LAB MCHC 32.2 32.0 - 37.0 g/dL LAB HEMETOLOGY METHOD 09/17/2024 10:35 AM [facility] LAB RDW 17.5(H) 11.0 - 15.0 % LAB HEMETOLOGY METHOD 09/17/2024 10:35 AM [facility] LAB Platelets 352 130 - 400 K/[facility] LAB HEMETOLOGY METHOD 09/17/2024 10:35 AM [facility] LAB MPV 11.5(H) 7.0 - 11.0 FL LAB HEMETOLOGY METHOD 09/17/2024 10:35 AM [facility] LAB NRBC 0.0 <1.0 % LAB HEMETOLOGY METHOD 09/17/2024 10:35 AM [facility] LAB NRBC Absolute 0.00 <0.10 K/[facility] LAB HEMETOLOGY METHOD 09/17/2024 10:35 AM EDT [facility] Blood Venous blood specimen / Unknown Venipuncture / Unknown 09/17/2024 8:06 AM EDT 09/17/2024 10:22 AM EDT us Prince Le MD LAB BLOOD ORDERABLES Final Resul t [facility] [address] [place] [address], documented in this encounter Visit Diagnoses Diagnosis Type 2 diabetes mellitus without complications (CMS/HCC V24, CMS/HCC V28) documented in this encounter Care Teams Assistant Manager Relationship Specialty Start Date End Date Tram Álvarez MD 2 [facility] , [address] Physician Associ D/B/A: [facility] [place], [place] PCP - General Internal Medicine 03/30/18 documented as of this encounter
--- OUTSIDE RECORDS SUMMARY | 2025-06-01 16:53 | XMS_ITS | Data Portability ---
Author Organization [employer] [facility] [place] [employer] [facility] Address [address] [place] [address] Care Team Providers Care Director Of Teacher Education Name Role Phone HIM CCA OTHER LANG HERRERA Primary Care Provider [phone] Assessment No assessment recorded. Plan of Treatment [...] Available N ot Available [employer] Tirso 2 [place] active Not Available Not Available Not Available Flowflex COVID-19 Antigen Home Test kit active Not Available Not Available Not Available Vitals Date Recorded Respiratory rate Heart rate Body temperature Oxygen saturation Systolic And Diastolic Provider Name and Address Organization Details Last Updated DateTime 4 18 /min 92 /min 98.5 [degF] 98 % 170/100 mm[Hg] Not Available [facility] - production 4 17:15:57 Social History None recorded. Functional Status None recorded. Mental Status None recorded. Family History Nothing Reported. Medical History No medical history recorded. Past Encounters Encounter ID Performer Location Encounter Start Date Encounter Closed Date Diagnosis/Indication Diagnosis SNOMED-CT Code Diagnosis ICD10 Code Diagnosis IMO Codes Diagnosis Note [id number] Alicia Perez MD Main - [facility] [address] [place] [phone] 04/05/2024 17:15:55 10/21/2024 20:16:20 Accidental fall [id number] I provided real -time medical direction via phone for this encounter, and was available for additional phone based assistance as needed. I have reviewed and agree with the Assessment and Plan as documented by the Tower Switch Operator. Patient given the opportunit y to ask [...] Richardson Member ID Guarantor Name 10/21/2024 1 [facility] - DOS ON OR AFTER 2022 - DUAL ELIGIBLE - LONGTERM OPTIONS AND ONE CARE (MEDICARE REPLACEMENT/ADV ANTAGE - HMO) Carlos Cabrera [id number] Carlos Cabrera Notes Date Note Type Note Provider Name and Address Organization Details Recorded Time 04/05/2024 text/html CRC Nurse Triage Notes (Inder Sweeney): Chief Complaints: Falls Allergies: Unknown Comments: Ornamental Ironworker Helper verified the Pt.'s name//address and phone number. [...] .................. .................. .................. .................. .................. .................. ............... Tower Switch Operator Note From Dangelo Willis: Dispatched to the [...] he is working on with his PCP. [facility]. Red flags discussed. .................. .................. .................. .................. .................. .................. .................. ............... Disposition: Fulfilled Alicia Perez MD 30 [facility],[address], [place], [address], MOHINI PAGE 04/05/2024 20:37:09
--- OUTSIDE RECORDS SUMMARY | 2025-06-01 16:53 | XMS_ITS | Clinical Summary ---
Author Organization [facility] Address [address] [place] [id number] Care Team Providers Care Rn Observation Name Role Phone Tram Royal MD Primary Care Provider [phone] Allergies Active Allergy Reactions Criticality Noted Date [...] % PVNMA 04/28/2020 us [facility] [id number] LICITED RESULTS Final Result PVNMA from Last 3 Months or Most Recently Relevant to Health Maintenance Insurance [address] [place] [id number] Medicaid [place] [address] [place] [address] Medicaid [place] Care Teams Rn Observation Relationship Specialty Start Date End Date Tram Royal MD [address] [place] PCP - General 07/17/20
--- OUTSIDE RECORDS SUMMARY | 2025-06-01 16:53 | XMS_ITS | Encounter Summary ---
Author Organization [facility] Address [address] [place] [address] Care Team Providers Care Station Usher Name Role Phone Tram Álvarez MD Primary Care Provider [phone] Encounter Details Date Type Department Care Team (Late st Contact Info) Description 05/14/2024 Lab Requisition [facility] - Main Lab [address] [place] [address] Prince Le MD 38 [facility] [address], [address] Essential (primary) hypertension Social History Tobacco [...] CHEMISTRY METHOD 05/17/2024 10:43 AM EST [facility] Potassium 4.5 3.5 - 5.5 mmol/L LAB CHEMISTRY METHOD 05/17/2024 10:43 AM EST [facility] Chloride 110 96 - 110 [...] Resul t [facility] [address] [place] [address], * (ABNORMAL) Complete blood count (05/17/2024 6:41 [...] Final Resul t [facility] [address] [place] [address], [place] [phone] documented in this encounter Visit Diagnoses Diagnosis Essential (primary) hypertension Unspecified essential hypertension documented in this encounter Care Teams Station Usher Relationship Specialty Start Date End Date Tram Álvarez MD [address] [place] [address] , [address] [facility] Physician Associ D/B/A: [facility] JAS Duque PCP - General Internal Medicine 03/30/18 documented as of this encounter
--- OUTSIDE RECORDS SUMMARY | 2025-06-01 16:53 | XMS_ITS | Encounter Summary ---
Author Organization [facility] Address [address] [place] [address] Care Team Providers Care Director Digital Catalogue Name Role Phone Tram Álvarez MD Primary Care Provider [phone] Encounter Details Date Type Department Care Team (Late st Contact Info) Description 09/30/[address] [facility] - Main Lab [address] [facility] [place] [address] Prince Le MD 38 [facility] [address] [place], [address] Type 2 diabetes mellitus without complications [...] mg/dL LAB CHEMISTRY METHOD 10/01/2024 11:57 AM [facility] Blood Venous blood specimen / Unknown Venipuncture / Unknown 10/01/2024 8:01 AM EDT 10/01/2024 10:24 AM EDT us Prince Le MD LAB BLOOD ORDERABLES Final Resul t [facility] [address] [place] [address], [place] [phone] * (ABNORMAL) Comprehensive metabolic panel (10/01/2024 8:01 AM EDT) Sodium 134 133 - 145 mmol/L LAB CHEMISTRY METHOD 10/01/2024 12:02 PM [facility] Potassium 4.7 3.5 - 5.5 mmol/L LAB CHEMISTRY METHOD 10/01/2024 12:02 PM [facility] Chloride 101 96 - 110 mmol/L LAB CHEMISTRY METHOD 10/01/2024 12:02 PM [facility] CO2 27 21 - 32 mmol/L LAB CHEMISTRY METHOD 10/01/2024 12:02 PM [facility] Anion Gap 6 3 - 11 LAB CHEMISTRY METHOD 10/01/2024 12:02 PM [facility] Glucose 79 70 - 100 mg/dL LAB CHEMISTRY METHOD 10/01/2024 12:02 PM [facility] BUN 40(H) 5 - 25 mg/dL LAB CHEMISTRY METHOD 10/01/2024 12:02 PM [facility] Creatinine 1.55(H) 0.70 - 1.30 mg/dL LAB CHEMISTRY METHOD 10/01/2024 12:02 PM [facility] eGFR 48(L) >=60 mL/min/1. 73m2 LAB CHEMISTRY METHOD 10/01/2024 12:02 PM [facility] Comment:Calculation based on the Chronic Kidney Disease Epidemiology Collaboration (CKD-EPI) equation refit without adjustment for race. BUN/Creatinine Ratio 25.8 LAB CHEMISTRY METHOD 10/01/2024 12:02 PM [facility] Calcium 8.8 8.5 - 10.5 mg/dL LAB CHEMISTRY METHOD 10/01/2024 12:02 PM [facility] AST (SGOT) 63(H) 10 - 42 unit/L LAB CHEMISTRY METHOD 10/01/2024 12:02 PM [facility] ALT (SGPT) 30 10 - 60 unit/L LAB CHEMISTRY METHOD 10/01/2024 12:02 PM [facility] Alkaline Phosphatase 40(L) 42 - 121 unit/L LAB CHEMISTRY METHOD 10/01/2024 12:02 PM [facility] Total Protein 6.0 6.0 - 8.0 g/dL LAB CHEMISTRY METHOD 10/01/2024 12:02 PM [facility] Albumin 2.9(L) 3.2 - 5.0 g/dL LAB CHEMISTRY METHOD 10/01/2024 12:02 PM [facility] Total Bilirubin 0.4 0.0 - 1.4 mg/dL LAB CHEMISTRY METHOD 10/01/2024 12:02 PM [facility] Blood Venous blood specimen / Unknown Venipuncture / Unknown 10/01/2024 8:01 AM EDT 10/01/2024 10:24 AM EDT us Prince Le MD LAB BLOOD ORDERABLES Final Resul t [facility] [address] [place] [address], * (ABNORMAL) Complete blood count (10/01/2024 8:01 AM EDT) WBC 7.3 4.8 - 10.8 K/mcL LAB HEMETOLOGY METHOD 10/01/2024 11:11 AM [facility] RBC 4.00(L) 4.50 - 5.50 M/mcL LAB HEMETOLOGY METHOD 10/01/2024 11:11 AM [facility] Hemoglobin 11.8(L) 13.5 - 17.5 g/dL LAB HEMETOLOGY METHOD 10/01/2024 11:11 AM [facility] Hematocrit 37.0(L) 42.0 - 54.0 % LAB HEMETOLOGY METHOD 10/01/2024 11:11 AM [facility] MCV 93.7 79.0 - 98.0 FL LAB HEMETOLOGY METHOD 10/01/2024 11:11 AM [facility] MCH 29.9 27.0 - 32.0 pcg LAB HEMETOLOGY METHOD 10/01/2024 11:11 AM [facility] MCHC 31.9(L) 32.0 - 37.0 g/dL LAB HEMETOLOGY METHOD 10/01/2024 11:11 AM [facility] RDW 16.4(H) 11.0 - 15.0 % LAB HEMETOLOGY METHOD 10/01/2024 11:11 AM [facility] Platelets 416(H) 130 - 400 K/mcL LAB HEMETOLOGY METHOD 10/01/2024 11:11 AM [facility] MPV 11.3(H) 7.0 - 11.0 FL LAB HEMETOLOGY METHOD 10/01/2024 11:11 AM [facility] NRBC 0.0 <1.0 % LAB HEMETOLOGY METHOD 10/01/2024 11:11 AM [facility] NRBC Absolute 0.00 <0.10 K/mcL LAB HEMETOLOGY METHOD 10/01/2024 11:11 AM [facility] Blood Venous blood specimen / Unknown Venipuncture / Unknown 10/01/2024 8:01 AM EDT 10/01/2024 10:24 AM EDT us Prince Le MD LAB BLOOD ORDERABLES Final Resul t [facility] ([facility]) [facility] [address] [place] [address], documented in this encounter Visit Diagnoses Diagnosis Type 2 diabetes mellitus without complications (CMS/HCC V24, CMS/HCC V28) documented in this encounter Care Teams Director Digital Catalogue Relationship Specialty Start Date End Date Tram Álvarez MD 2 [facility] , [address] Physician Associ D/B/A: [facility] [place] PCP - General Internal Medicine 03/30/18 documented as of this encounter
--- OUTSIDE RECORDS SUMMARY | 2025-06-01 16:53 | XMS_ITS | Data Portability ---
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 Name Role Phone LANG HERRERA Primary Care Provider [phone] [facility] - 4TH FLOOR OTHER Assessment No assessment [...] Address Organization Details Recorded Time Diabetes mellitus 54157547 Active 2019 YANG SWEET [address] [facility], [address], [place], [address], [facility] 0 09:29:33 Depressive disorder 88781611 Active 2019 YANG SWEET [address] [facility], [address], [place], [address], [facility] 0 09:29:39 Essential hypertensio n 60574826 Active 2019 YANG SWEET [address] [facility], [address], [place], [address], [facility] 0 09:29:47 Hypercholes terolemia 89182437 Active 2019 YANG SWEET [address], [place], [address], [facility] 0 09:29:57 Vitamin D deficiency 24214991 Active 2019 YANG SWEET [address] , [address], [place], [address], [facility] 0 09:30:10 Insomnia 961478329 Active 2019 YANG SWEET [address], [place], [address], [facility] 0 09:30:19 Spinal stenosis of lumbar region 28039827 Active 2019 YANG SWEET [address], [address], [place], [address], [facility] 0 09:30:43 Total knee replacement Active 2022 Sonja Gibbs NP [address] [facility], [address], [place], [address], [facility] 3 09:12:50 Acute pain of joint of knee 1489108225785 04 Active 2022 Sonja Gibbs NP [address] [facility], [address], [place], [address], [facility] 3 09:14:53 Constipatio n 65328135 Active 2022 Sonja Gibbs NP [address] [facility], [address], [place], [address], [facility] 3 10:15:39 Osteoarthri tis of knee 975924443 Active 2022 Judie Camacho MD [address] [facility], [address], [place], [address], [facility] 3 20:37:14 Chronic kidney disease stage 1 313208726 Active 2022 Judie Camacho MD [address] [facility], [address], [place], [address], [facility] 3 20:53:16 Chronic diastolic heart failure 340459276 Active 2023 Judie Camacho MD [address] [facility], [address], [place], [address], [facility] 4 21:28:14 Chronic kidney disease stage 2 238365515 Active 2023 Judie Camacho MD [address] [place] [address], [facility] [address], [place], [address], [facility] 4 21:28:20 Problem Notes None recorded. Procedures Surgical History Date Name Laterality Status Provider Name and Address Organization Details Recorded Time laminotomy completed NURIA FERNANDEZYANG VARGAS [address] [place] [address], [facility] [address], [place], [address], [facility] 01/06/2020 09:27:06 Imaging Results None recorded. Procedure Notes None recorded. Medical Equipment None Reported. Allergies Allergen ID Allergen Name Allergen Category Reaction Reaction Severity Criticality Documentation Date Start Date Code Code System Note Provider Name and Address Organization Details Recorded Time 06898 Product containin g penicilli n (product) medicatio n rash Not available Not available 01/06/2020 50153 8001 SNOMED NURIA FERNANDEZYANG VARGAS [address] [place] [address], [facility] [address], [place], [address], [facility] 0 09:20:02 53276 ioversol medicatio n Not available Not available Not available 12/06/20242021 10706 RxNorm Other react ion(s ): hives no meds given Judie Camacho MD [address] [place] [address], [facility] [address], [place], [address], [facility] 5 13:19:35 Medications Name Sig Start [...] cm 108/71 mm[Hg] Prince Le MD [address] [facility], [address], [place], [address], [facility] 09/11/2024 11:45:45 Date Recorded Body height Body weight Heart rate Respiratory rate Body temperature Oxygen saturation Systolic And Diastolic Provider Name and Address Organization Details Last Updated DateTime 5 198.12 cm 65291.3 g 76 /min 18 /min 98.6 [degF] 97 % 102/68 mm[Hg] Sonja Gibbs NP [address] [facility], [address], [place], [address], [facility] 5 09:33:55 Date Recorded Body height Body mass index (BMI) Body weight Heart rate Respiratory rate Body temperature Oxygen saturation Systolic And Diastolic Provider Name and Address Organization Details Last Updated DateTime 5 198.12 cm 19.8 kg/m2 45751.3 g 90 /min 18 /min 97.6 [degF] 97 % 102/70 mm[Hg] Sonja Gibbs NP [address] [facility], [address], [place], [address], [facility] 5 09:48:14 Date Recorded Body height Body mass index (BMI) Body weight Heart rate Respiratory rate Body temperature Oxygen saturation Systolic And Diastolic Provider Name and Address Organization Details Last Updated DateTime 5 198.12 cm 19.1 kg/m2 48644.7 4 g 76 /min 18 /min 97.6 [degF] 98 % 90/64 mm[Hg] Sonja Gibbs NP [address] [facility], [address], [place], [address], [facility] 5 16:46:26 Date Recorded Heart rate Respiratory rate Body temperature Oxygen saturation Systolic And Diastolic Provider Name and Address Organization Details Last Updated DateTime 5 76 /min 18 /min 97.6 [degF] 98 % 89/60 mm[Hg] Sonja Gibbs NP [address] [facility], [address], [place], [address], [facility] 5 09:51:01 Date Recorded Body height Provider Name an d Address Organization Details Last Updated DateTime 10/20/2024 198.12 cm Sonja Gibbs, N P [address] [facility], [address], [place], [address], [facility] 10/20/2024 09:22:14 Social History Question Answer Notes LastModified by Organizat ion Details LastModified Time Tobacco Smoking Status Former Smoker 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 Yes FULL CODE No Dialysis And Okay To Use Nutrition-us e Hydration Information not available 02/14/2023 How Much Tobacco Do You Chew? None [id number] Information not available 05/02/2020 What Is Your Code Status? Full Code Information not available 02/14/2023 Where Do You Live? Apartment Elevator Information not available 02/19/2023 Legal Guardian? 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 40 [id number] Information not available 05/02/2020 Do You Have [...] used smokeless tobacco? Never used smokeless tobacco [id number] Information not available 05/02/2020 Do you or have you ever used e-cigarettes or vape? Never used electronic cigarettes [id number] Information not available 05/02/2020 Mental Status None [...] [facility] 09:57:53 Influenza, adjuvanted, quadrivalent, PF 3 completed [facility]/05/2023 11:45:01 pneumococcal polysaccharide PPV23 8 completed Sade [facility] 05/07/2024 15:50:52 influenza, unspecified formulation 4 completed Sade [facility] 05/07/2024 15:51:08 SARS-COV-2 (COVID-19) vaccine, UNSPECIFIED 1 completed Sade [facility] 05/07/2024 15:51:23 SARS-COV-2 (COVID-19) vaccine, UNSPECIFIED 1 [facility]2024 15:51:30 SARS-COV-2 (COVID-19) vaccine, UNSPECIFIED 3 completed Sade [facility] 05/07/2024 15:51:38 Past Encounters Encounter ID Performer Location Encounter Start Date Encounter Closed Date Diagnosis/Indication Diagnosis SNOMED-CT Code Diagnosis ICD10 Code Diagnosis IMO Codes Diagnosis Note [id number] YANG SWEET [facility] [address] [address] 01/06/2020 09:16:35 01/10/2020 16:25:01 Spinal stenosis of lumbar region 59582307 M48.062 s/p L4-5 decompress ion 01/03/20 by [...] 10 days-appt already set up Diabetes mellitus 856562 09 E11.9 trulicity 1.5 mg q week on sundays lantus 45 units qd SSI januvia 100 mg qd monitor A1c monitor for s/s of hypo/hyper glycemia Essential hypertension 85234340 I10 amlodipine 5 mg qd benazepril 20 mg q hs and 40 mg q am HCTZ 50 mg qd monitor b/p and labs Hypercholesterolemia 136 15529 E78.2 atorvastat in 20 mg qd fenofibrat e 145 mg qd monitor labs Insomnia 965195419 G47.0 9 was on trazodone 50 mg q hs and seroquel 100 mg q hs prior to hospital not on here will need to monitor for need for it Depressive disorder 3549 9007 F32.89 zoloft 50 mg qd-was on 100 mg at home nortriptyl ine 25 mg q 12 hrs discussed risk vs benefit of zoloft and nortriptyl ine with pt monitor mood Vitamin D deficiency 347 44932 E56.8 vitamin D3 1000 iu qd monitor levels [id number] [facility] [address] 01/07/2020 07:31:48 01/10/2020 16:31:47 Depressive disorder 25623617 F32.89 sertraline 50 mg dailywill monitor Diabetes mellitus 868858 09 E11.9 Humalog per sliding scaleJanuv ia 100 mg dailyLantu s 45 mg at hsmetformi n 1000 mg bidTrulici ty 1.5 mg weeklywill monitor Essential hypertension 60965765 I10 amlodipine 5 mg dailybenaz epril 40 mg dailyHCTZ 50 mg dailywill monitor Hypercholesterolemia 136 95458 E78.00 atorvastat in 20 mg dailyfenof ibrate 145 mg dailywill monitor Spinal mg nosis of lumbar region 46444387 M48.061 s/p recent decompress ion L4-5 cyclobenza tutu 10 mg tidnortrip tyline 25 mg bid diclofenac 75 mg bidgabapen tin 300 mg bid and 600 mg at hsoxycodon e 5-10 mg q4h prnfu neurosurge ryPT/OT [id number] PALAK BECKER NP [facility] [address] [address] 01/11/2020 08:12:58 01/14/2020 14:03:39 Depressive disorder 65619374 F32.9 sertraline 50 mg daily will monitor Spinal mg nosis of lumbar region 95112553 M48.061 cyclobenza tutu 10 mg tid nortriptyl ine 25 mg bid diclofenac 75 mg bid gabapentin 300 mg bid and 600 mg at hs oxycodone 5-10 mg q4h prn fu neurosurge ry PT/OT [id number] PALAK BECKER NP [address] [address] 01/14/2020 07:57:00 01/18/2020 09:07:39 Depressive disorder 75162792 F32.9 sertraline 50 mg daily will monitor Diabetes mellitus 769590 09 E11.9 monitor poc glucose Humalog per sliding scaleJanuv ia 100 mg daily Lantus 45 mg at hs metformin 1000 mg bid Trulicity 1.5 mg weekly will monitor Essential hypertension 79095138 I10 amlodipine 5 mg dailybenaz epril 40 mg daily HCTZ 50 mg daily will monitor Hypercholesterolemia 136 67566 E78.00 atorvastat in 20 mg daily fenofibrat e 145 mg daily will monitor Spinal mg nosis of lumbar region 57267152 M48.061 cyclobenza tutu 10 mg tid nortriptyl ine 25 mg bid diclofenac 75 mg bid gabapentin 300 mg bid and 600 mg at hs oxycodone 5-10 mg q4h prn fu neurosurge ry PT/OT [id number] YANG SWEET [facility] [address] 01/17/2020 08:06:37 01/25/2020 11:54:15 Spinal stenosis of lumbar region 80445606 M48.062 s/p L4-5 decompress ion 01/03/20 by Tana diclofenac on 01/08/20-75 mg bid oxycodone 5-10 mg q 4 hrs prn cyclobenza tutu 10 mg tid neurontin 300 mg bid and 600 mg q hs follow up with surgeon on 02/15/20 and as needed Diabetes mellitus 182627 09 E11.9 trulicity 1.5 mg q week on sundays lantus 45 units qd januvia 100 mg qd follow up with PCP Essential hypertension 27397668 I10 amlodipine 5 mg qd benazepril 40 mg q am HCTZ 50 mg qd follow up with PCP Hypercholesterolemia 136 43839 E78.2 atorvastat in 20 mg qd fenofibrat e 145 mg qd follow up with PCP Insomnia 981054972 G47.0 9 follow up with PCP Depressive disorder 3548 9007 F32.89 zoloft 50 mg qd nortriptyl ine 25 mg q 12 hrs follow up with PCP Vitamin D deficiency 347 88907 E56.8 vitamin D3 1000 iu qd follow up with PCP [id number] Sonja Gibbs NP [facility] [address] [address] 02/14/2023 08:55:37 02/19/2023 09:34:58 Spinal stenosis of lumbar region 82829609 M48.062 s/p L4-5 decompress ion 01/03/20 by Roel knee surgery oxycodonec yclobenzap rine 10 mg bedtime prnmonitor pain Diabetes mellitus 775904 09 E11.9 cont home regimentru licity 1.5 sc at 0900 on fridaytre iba 55 units sc bedtimemet formin 500 mg er bidjardian ce 25 mg qdvascepa 2 g po bidmonitor bs bid x 3 days and reeval Essential hypertension 88697922 I10 hydralazin e 10 mg po tidbenazep ril 40 mg q am (per dc instructio ns and pt on both)lisin opril 20 mg po daily (per dc instructio ns and pt on both)furos emide 20 mg po dailymonit or bp, hr Hypercholesterolemia 136 47903 E78.2 atorvastat in 20 mg qdfenofibr ate 145 mg qd Insomnia 006512382 G47.0 9 follow up with PCP Depressive disorder 3548 9007 F32.89 lorazepam 1 mg po bidmonitor for anxiety Vitamin D deficiency 347 29747 E56.8 vitamin D3 1000 iu qd Acute pain of joint of knee 3890981740 86897 M25.569 sp post op 02/11/23 total knee [...] stregth, gait trainingcb c bmp weekly Constipation 29339159 K5 9.00 post op constipati oncont docusate 100 mg po bid*start milk of magnesia 30 cc po today and q 24 hours prn constipati on [id number] Judie Camacho MD [address] [address] 02/18/2023 19:53:10 02/20/2023 08:52:13 Spinal stenosis of lumbar region 55834849 M48.062 With chronic back pain. Uses oxycodone 5 mg TID at baseline and cyclobenza tutu 10 mg qhs prnPT/OT as above.Tabitha tor pain Diabetes mellitus 156592 09 E11.9 Last HgA1C was 7.9 on 01/31/23, BS have been good since hereReport eden doesn't use all his meds regularly due to cost.Vasu nue trulicity 1.5 weekly, tresiba 55 U qd, metformin 500 mg BID, and jardiance 25 mg qdMonitor fingerstic ks BID and HgA1C as outpt. Essential hypertension 83751157 I10 BP in good control.Co ntinue hydralazin e 10 mg TID, benazepril 40 mg qd, lisinopril 20 mg qd and furosemide 20 mg qd.Monitor BP and labsUnclea r why pt is on 2 SHANNON inhibitors , but will leave for PCP to manage. Vitamin D deficiency 347 71751 E56.8 Continue vitamin D3 1000 IU qdMonitor as outpt. Constipation 30742575 K5 9.09 Will add miralax 17 gms qd and continue docusate 100 mg BID and MOM prn.Monito r bowel function Osteoarthr itis of knee 771328888 M17.12 Z96.652 Recovering slowly after LTKR.Vasu nue [...] f/u Chronic ki dney disease stage 1 926463771 N18.1 At baseline.C ontinue to avoid nephrotoxi c meds as able.Monit or labs.Renal consult prn. Hyperlipidemia 08511553 E78.49 E78.1 Last lipids in system from 02/2021, trig were still high, but TC and HDL ok.Continu e atorvastat in 20 mg qd, fenofibrat e 145 mg qd and vascepa 2 g BID.Will get lipid profile while here, then f/u with PCP as outpt. 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 was still on sertraline , but per inpt notes, not filled at either [facility] or [facility] recently.C ontinue lorazepam 1 mg BID.monito r for anxiety [id number] Sonja Gibbs, DIAMOND [facility] [address] [place] [address] 02/21/2023 10:00:03 02/25/2023 10:32:50 Osteoarthritis of knee 514106433 M17.12 Z96.652 LTKR originally done on ontinu [...] f/u Spinal mg nosis of lumbar region 71796044 M48.062 With chronic back pain.oxyco done 5 mg TID at baseline and cyclobenza tutu 10 mg qhs prn at baseline, now see above osteoarthr itis of knee for new pain regimenPT/ OT as above.Tabitha tor pain Diabetes mellitus 308928 09 E11.9 Last HgA1C was 7.9 on 01/31/23, BS have been good since hereContin uetrulicit y 1.5 weeklytres iba 55 U qdmetformi n 500 mg BID,jardia nce 25 mg qdMonitor fingerstic ks BID and HgA1C as outpt. Essential hypertension 29581795 I10 BP in good control. slightly high likely due to painContin uehydralaz ine 10 mg TIDbenazep ril 40 mg qdlisinopr il 20 mg qdfurosemi de 20 mg qd.Monitor BP and labsUnclea r why pt is on 2 SHANNON inhibitors , but will leave for PCP to manage. (pt on this regimen for many years and reports it works) Hyperlipidemia 97396582 E78.49 E78.1 Last lipids in system from 02/2021, trig were still high, but TC and HDL ok.Continu eatorvasta tin 20 mg qdfenofibr ate 145 mg qdvascepa 2 g BID.lipid profile pendingf/u with PCP as outpt. Mixed anxi ety and depressive disorder 826584585 F41.8 Per pt. was still on sertraline , but per inpt notes, not filled at either [facility] or [facility] recently.C ontinuelor azepam 1 mg BID.monito r for anxiety Vitamin D deficiency 347 03072 E56.8 Continuevi tamin D3 1000 IU qdMonitor as outpt. Constipation 91273932 K5 9.09 with hard stools per report latelymira lax 17 gms qddocusate 100 mg BIDMOM prn.Monito r bowel function Chronic ki dney disease stage 1 880470308 N18.1 At baseline.C ontinue to avoid nephrotoxi c meds as able.Monit or labs.Renal consult prn. [id number] Sonja Gibbs NP [address] [address] 02/24/2023 08:59:01 02/28/2023 10:19:51 Osteoarthritis of knee 676652291 M17.12 Z96.652 LTKR originally done on inc [...] precaution s.Monitor for safety.F/U with ortho on 8/[address] Juana Apple ([facility] [place] to check into this appt with office as pt states his cheng states it is for PT)Keep aquacel dressing in place until f/u Diabetes mellitus 994235 09 E11.9 Last HgA1C was 7.9 on 01/31/23, BS have been good since hereContin uetrulicit y 1.5 weeklytres iba 55 U qdmetformi n 500 mg BID,jardia nce 25 mg qdMonitor fingerstic ks BID and HgA1C as outpt. Spinal mg nosis of lumbar region 40307035 M48.062 With chronic back pain.oxyco done 5 mg TID at baseline and cyclobenza tutu 10 mg qhs prn at baseline, now see above osteoarthr itis of knee for new pain regimenPT/ OT as above.Tabitha tor pain Essential hypertension 39201775 I10 BP slightly high likely due to painContin uehydralaz ine 10 mg TIDbenazep ril 40 mg qdlisinopr il 20 mg qdfurosemi de 20 mg qd.Monitor BP and labsUnclea r why pt is on 2 SHANNON inhibitors , but will leave for PCP to manage. (pt on this regimen for many years and reports it works) Hyperlipidemia 13166855 E78.49 E78.1 Last lipids in system from 02/2021, trig were still high, but TC and HDL ok.Continu eatorvasta tin 20 mg qdfenofibr ate 145 mg qdvascepa 2 g BID.lipid profile pendingf/u with PCP as outpt. Mixed anxi ety and depressive disorder 007540572 F41.8 Per pt. was still on sertraline , but per inpt notes, not filled at either [facility] or [facility] recently.C ontinuelor azepam 1 mg BID.monito r for anxiety Vitamin D deficiency 347 72974 E56.8 Continuevi tamin D3 1000 IU qdMonitor as outpt. Constipation 44181056 K5 9.09 with hard stools per report latelyincr ease miralax 17 gms qd to bidcont docusate 100 mg BIDMOM prn. q 24 hours if hard stools or no bmMonitor bowel function Chronic ki dney disease stage 1 217249003 N18.1 At baseline.C ontinue to avoid nephrotoxi c meds as able.Monit or labs.Renal consult prn. [id number] Sonja Gibbs NP [address] [place] [address] 02/28/2023 08:24:09 03/03/2023 11:01:20 Osteoarthritis of knee 319944895 M17.12 Z96.652 LTKR originally done on oxy [...] and make 2 week appt today Constipation 64998160 K5 9.09 resolvingc ontmiralax 17 gms qd to biddocusat e 100 mg BIDMOM prn. q 24 hours if hard stools or no bmMonitor bowel function Diabetes mellitus 230878 09 E11.9 Last HgA1C was 7.9 on 01/31/23, BS have been good since hereContin uetrulicit y 1.5 weeklytres iba 55 U qdmetformi n 500 mg BID,jardia nce 25 mg qdMonitor fingerstic ks BID and HgA1C as outpt. Spinal mg nosis of lumbar region 67809037 M48.062 With chronic back pain.oxyco done 5 mg TID at baseline and cyclobenza tutu 10 mg qhs prn at baseline, now see above osteoarthr itis of knee for new pain regimenPT/ OT as above.Tabitha tor pain Essential hypertension 35018473 I10 BP slightly high likely due to pain, will monitor closelyCon tinuehydra lazine 10 mg TIDbenazep ril 40 mg qdlisinopr il 20 mg qdfurosemi de 20 mg qd.Monitor BP and labsUnclea r why pt is on 2 SHANNON inhibitors , but will leave for PCP to manage. (pt on this regimen for many years and reports it works) Hyperlipidemia 82999848 E78.49 E78.1 Last lipids in system from 02/2021, trig were still high, but TC and HDL ok.Continu eatorvasta tin 20 mg qdfenofibr ate 145 mg qdvascepa 2 g BID.lipid profile pendingf/u with PCP as outpt. Mixed anxi ety and depressive disorder 926816713 F41.8 Per pt. was still on sertraline , but per inpt notes, not filled at either [facility] or [facility] recently.C ontinuelor azepam 1 mg BID.monito r for anxiety Vitamin D deficiency 347 77746 E56.8 Continuevi tamin D3 1000 IU qdMonitor as outpt. Chronic ki dney disease stage 1 857651173 N18.1 At baseline.C ontinue to avoid nephrotoxi c meds as able.Monit or labs.Renal consult prn. [id number] Sonja Gibbs NP [address] [address] 03/03/2023 08:59:22 03/05/2023 08:05:09 Osteoarthritis of knee 296620971 M17.12 Z96.652 LTKR originally done on oxy [...] and make fu appt-still no note Constipation 65609374 K5 9.09 better on this regimencon tmiralax 17 gms qd to biddocusat e 100 mg BIDMOM prn. q 24 hours if hard stools or no bmMonitor bowel function Diabetes mellitus 180881 09 E11.9 Last HgA1C was 7.9 on 01/31/23, BS have been good since hereContin uetrulicit y 1.5 weeklytres iba 55 U qdmetformi n 500 mg BID,jardia nce 25 mg qdMonitor fingerstic ks BID and HgA1C as outpt. Spinal mg nosis of lumbar region 78476493 M48.062 With chronic back pain.oxyco done 5 mg TID at baseline and cyclobenza tutu 10 mg qhs prn at baseline, now see above with osteoarthr itis of knee for new pain regimenPT/ OT as above.Tabitha tor pain Essential hypertension 93656864 I10 BP slightly high likely due to pain now improving, will monitor closely 130s/70sCo ntinuehydr alazine 10 mg TIDbenazep ril 40 mg qdlisinopr il 20 mg qdfurosemi de 20 mg qd.Monitor BP and labsUnclea r why pt is on 2 SHANNON inhibitors , but will leave for PCP to manage. (pt on this regimen for many years and reports it works) Hyperlipidemia 05275184 E78.49 E78.1 Last lipids in system from 02/2021, trig were still high, but TC and HDL ok.Continu eatorvasta tin 20 mg qdfenofibr ate 145 mg qdvascepa 2 g BID.lipid profile pendingf/u with PCP as outpt. Mixed anxi ety and depressive disorder 140576441 F41.8 Per pt. was still on sertraline , but per inpt notes, not filled at either [facility] or [facility] recently.C ontinuelor azepam 1 mg BID.monito r for anxiety Chronic ki dney disease stage 1 464155447 N18.1 At baseline.C ontinue to avoid nephrotoxi c meds as able.Monit or labs.Renal consult prn. Edema of robert conte extremity 445510146 R60.0 nsg and pt state bilateral feet swelling, now better this am after feet up all night, likely dependent as he is up more throughout the day 03/03 start compressio n stockings on in am off in pmmonitor [id number] Sonja Gibbs NP [facility] [address] [place] [address] 03/06/2023 11:01:35 03/11/2023 09:41:09 Osteoarthritis of knee 449770572 M17.12 Z96.652 LTKR originally done on 02/11oxycodo [...] ortho on 02/[address] Juana Apple ([facility] [place] to check into this appt with office as pt states his cheng states it is for PT)fu with ortho and pcp outpt and PT services amended orderpt has pain and oxycodone not availablet ramadol 100 mg po q 6 hours prn x 24 hoursmonit or Constipation 46898568 K5 9.09 miralax 17 gms qd to bid, titrate as neededdocu sate 100 mg BIDMOM prn. q 24 hours if hard stools or no bmMonitor bowel function outpt with vna pcp Diabetes mellitus 510876 09 E11.9 Last HgA1C was 7.9 on 01/31/23, BS have been good since heretrulic ity 1.5 weeklytres iba 55 U qdmetformi n 500 mg BID,jardia nce 25 mg qdMonitor fingerstic ks BID and HgA1C as outpt.foll ow with pcp outpt Spinal mg nosis of lumbar region 54735611 M48.062 With chronic back pain.oxyco done 5 mg TID at baseline(s ee increased regimen above osteoarthr itis please ) and cyclobenza tutu 10 mg qhs prn at baselinePT /OT as above.Tabitha tor pain outpt with pcp Essential hypertension 40498933 I10 BP slightly high likely due to painContin uehydralaz ine 10 mg TIDbenazep ril 40 mg qdlisinopr il 20 mg qdfurosemi de 20 mg qd.Monitor BP and labsUnclea r why pt is on 2 SHANNON inhibitors , but will leave for PCP to manage outpt. (pt on this regimen for many years and reports it works) Hyperlipidemia 47807281 E78.49 E78.1 Last lipids in system from 02/2021, trig were still high, but TC and HDL ok.Continu eatorvasta tin 20 mg qdfenofibr ate 145 mg qdvascepa 2 g BID.lipid profile pendingf/u with PCP as outpt. Mixed anxi ety and depressive disorder 800990488 F41.8 Per pt. was still on sertraline , but per inpt notes, not filled at either [facility] or [facility] recently.C ontinuelor azepam 1 mg BID.monito r for anxiety outpt with pcp Vitamin D deficiency 347 69021 E56.8 Continuevi tamin D3 1000 IU qdMonitor as outpt with pcp Chronic ki dney disease stage 1 152813919 N18.1 At baseline.C ontinue to avoid nephrotoxi c meds as able.Monit or labs.Renal consult prn outpt Hypercholesterolemia 136 29329 E78.2 atorvastat in 20 mg qdfenofibr ate 145 mg qdfu with pcp outpt Insomnia 800893715 G47.0 9 follow up with PCP outpt [id number] [facility] [address] 05/07/2024 18:25:29 05/10/2024 08:52:32 Chronic diastolic heart failure 215842211 I50.32 Pt says he never had any [...] labs. Spinal mg nosis of lumbar region 26432670 M48.062 With chronic back pain. Uses [facility]ycodone 10 mg [facility]W ritten for 5 mg QID at hospital, will change back to baseline dose.Very deconditio amaury.Needs PT/OT for strengthen ing, balance, gait training, safety and function.C ontinue fall precaution s.Monitor for safety.Mon itor pain controlCel ebrex on hold. Hypercholesterolemia 136 68118 E78.2 Continue atorvastat in 20 mg qd, fenofibrat e 145 mg qd, vascepa 2 g BID, and ASA 81 mg qd.Monitor labs as outpt. Essential hypertension 78656010 I10 SBP a little high yesterday, not checked todayConti nue meds as above and amlodipine 2.5 mg qd.Monitor BP and labsDaily BPs ordered. Diabetes mellitus 953881 09 E11.9 Last HgA1C was 7.9 in 11/2023.Fol lowed by endocrine at [facility].Contin ue trulicity 1.5 weekly, tresiba 35 U qd, metformin 500 mg BID, januvia 25 mg qd, and SSITresiba not yet delivered, ok to use Lantus instead tonight.Mo nitor fingerstic ks TID and HgA1C as outpt. Depressive disorder 7951 9007 F32.89 In hx.On no meds.Monit or mood.Psych consult prn. Chronic ki dney disease stage 2 352538530 N18.2 At baseline.C ontinue to avoid nephrotoxi c meds as able.Monit or labs.Renal consult prn. Benign pro static hyperplasia without outflow obstruction 776772946 N40.0 In hx, with some issues with retention at times.Cont inue tamsulosin 0.4 mg qd. [id number] MARIE TORRES NP [address] [place] [address] 05/13/2024 13:47:03 05/14/2024 10:52:03 Chronic diastolic heart failure 408837741 I50.32 Pt says he never had any [...] 3 Spinal mg nosis of lumbar region 56527839 M48.062 With chronic back pain. Uses oxycodone 10 mg QID at baseline (checked in [facility]).W ritten for 5 mg QID at hospital, will change back to baseline dose.Very deconditio amaury.Needs PT/OT for strengthen ing, balance, gait training, safety and function.C ontinue fall precaution s.Monitor for safety.Mon itor pain controlCel ebrex on hold. Diabetes mellitus 236188 09 E11.9 Last HgA1C was 7.9 in 11/2023.Fol lowed by endocrine at [facility].Contin ue trulicity 1.5 weekly, tresiba 35 U qd, metformin 500 mg BID, januvia 25 mg qd, and SSITresiba not yet delivered, ok to use Lantus instead tonight.Mo nitor fingerstic ks TID and HgA1C as outpt. Essential hypertension 70188546 I10 SBP a little high yesterday, not checked todayConti nue meds as above and amlodipine 2.5 mg qd.Monitor BP and labsDaily BPs ordered. Chronic ki dney disease stage 2 368739962 N18.2 At baseline.C ontinue to avoid nephrotoxi c meds as able.Monit or labs.Renal consult prn. Hypercholesterolemia 136 33378 E78.2 Continue atorvastat in 20 mg qd, fenofibrat e 145 mg qd, vascepa 2 g BID, and ASA 81 mg qd.Monitor labs as outpt. Depressive disorder 3548 9007 F32.89 In hx.On no meds.Monit or mood.Psych consult prn. Benign pro static hyperplasia without outflow obstruction 046843836 N40.0 In hx, with some issues with retention at times.Cont inue tamsulosin 0.4 mg qd. Pain in right arm 695003 004 M79.601 New onset, x 2-3d. Denies trauma or injury.Exa m limited due to painPMR assessed as well.Plan -Check x rays and venous USOxycodon e already available for pain.Monit or closely. [id number] [facility] [address] 05/14/2024 11:54:20 05/17/2024 11:03:10 Chronic diastolic heart failure 724955528 I50.32 Pt's main c/o was and continues [...] today Spinal mg nosis of lumbar region 35100731 M48.062 With chronic back pain. hx of oxycodone 10 mg QID at baseline (RACK [employer]ER checked in [facility]). and changed to baseline dose as hosp decreased it to 5mg QID prnVery deconditio amaury.Needs PT/OT for strengthen ing, balance, gait training, safety and function.C ontinue fall precaution s.Monitor for safety.Fri itor pain controlCel ebrex on hold. Diabetes mellitus 289996 09 E11.9 BS 127 today and stable, [facility] Hg[facility] was 7.9 in 11/2023.Con [place] 1.5 weekly, tresiba 35 U qd, metformin 500 mg BID, januvia 25 mg qd, and SSIMonitor fingerstic ks TID and HgA1C as outpt. Essential hypertension 33210071 I10 bp stable 128/72 todayConti nue meds as above and amlodipine 2.5 mg qd.Monitor BP and labsDaily BPs ordered. Chronic ki dney disease stage 2 262315849 N18.2 At baseline.C ontinue to avoid nephrotoxi c meds as able.Monit or labs.Renal consult prn. Hypercholesterolemia 136 04366 E78.2 Continueat orvastatin 20 mg qd, fenofibrat e 145 mg qd, vascepa 2 g BID, and ASA 81 mg qd.Monitor labs as outpt. Depressive disorder 3548 9007 F32.89 In hx.On no meds.Monit or mood.Psych consult prn. Benign pro static hyperplasia without outflow obstruction 032780065 N40.0 In hx, with some issues with retention at times.Cont inuetamsul osin 0.4 mg qd. Pain in right arm 602307 004 M79.601 New onset, x 2-3d. Denies trauma or injury. feels it is improvingx rays and venous US to right arm negative for acute findingsOx ycodone for pain.05/14 seen by physiatry on 05/13 rec: tyl 1000 mg po tid and lidocaine patch, will agree and order todayMonit or closely. Dizziness 170419515 R42 pt reports dizziness today directly related to the room being hot05/14 requests to move room, decrease heat or leave facility, nursing aware and heat reduced, vitals and BS stablemoni tor closely for improvemen t or changes Tinea pedis 7198479 B35. 3 clotrimazo le 1 % cream bid x 10 daysmonito r [id number] Sonja Gibbs NP [address] [address] 05/20/2024 07:43:04 05/21/2024 11:07:38 Pain in right arm 258518547 M79.601 New onset, x 2-3d. Denies trauma or injury. feels it is improvingx rays and venous US to right arm negative for acute findingsOx ycodone for pain.physi atry rec tyl 1000 mg po tid and lidocaine patch which is helping but remains with pain. will reconsult1 07/20 will increase cyclobenza tutu to bid todayMonit or closely. Tinea pedis 8850626 B35. 3 improving slightlycl otrimazole 1 % cream bid x 10 daysmonito r Chronic di astolic heart failure 711541019 I50.32 Pt's main c/o was and continues [...] x1 Spinal mg nosis of lumbar region 32685348 M48.062 With chronic back pain. 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 Diabetes mellitus 054890 09 E11.9 BS 102-182 stable, [facility] HgA1C was 7.9 in 11/2023.[place] 1.5 weekly, tresiba 35 U qd, metformin 500 mg BID, januvia 25 mg qd, and SSIMonitor fingerstic ks TID and HgA1C as outpt. Essential hypertension 74218409 I10 bp stable 126/69 todayConti nue meds as above and amlodipine 2.5 mg qd.Monitor BP and labsDaily BPs ordered. Chronic ki dney disease stage 2 566442307 N18.2 At baseline.C ontinue to avoid nephrotoxi c meds as able.Monit or labs.Renal consult prn. Hypercholesterolemia 136 66644 E78.2 Continueat orvastatin 20 mg qd, fenofibrat e 145 mg qd, vascepa 2 g BID, and ASA 81 mg qd.Monitor labs as outpt. Depressive disorder 3548 9007 F32.89 In hx.On no meds.Monit or mood.Psych consult prn. Benign pro static hyperplasia without outflow obstruction 222733615 N40.0 In hx, with some issues with retention at times.Cont inuetamsul osin 0.4 mg qd. [id number] Sonja Gibbs NP [facility] [address] [place] [address] 05/27/2024 13:47:02 05/28/2024 10:07:06 Pain in right arm 408901651 M79.601 Denies trauma or injury. feels it is improving. refuses additional meds for pain todayx rays and venous US to right arm negative for acute findingsOx ycodone for pain.physi atry rec tyl 1000 mg po tid and lidocaine patch which is helpingcyc lobenzapri ne to bid todayMonit or closely. Tinea pedis 3312144 B35. 3 improvingc lotrimazol e 1 % cream bid x 10 days to completemo nitor Chronic di astolic heart failure 381621547 I50.32 Pt's main c/o was and continues [...] above Spinal mg nosis of lumbar region 21047957 M48.062 With chronic back pain. 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 Diabetes mellitus 413489 09 E11.9 BS 100s-occ 200s stable, [facility] outptLast HgA1C was 7.9 in 11/2023.Con [place] 1.5 weekly, tresiba 35 U qd, metformin 500 mg BID, januvia 25 mg qd, and SSIMonitor fingerstic ks TID and HgA1C as outpt. Essential hypertension 72760092 I10 bp stableCont inue meds as above and amlodipine 2.5 mg qd.Monitor BP and labs Chronic ki dney disease stage 2 267688094 N18.2 At baseline.C ontinue to avoid nephrotoxi c meds as able.Monit or labs.Renal consult prn. Hypercholesterolemia 136 83742 E78.2 Continueat orvastatin 20 mg qd, fenofibrat e 145 mg qd, vascepa 2 g BID, and ASA 81 mg qd.Monitor labs as outpt. Depressive disorder 3548 9007 F32.89 a little down today, wishes his progress was futher, but reports okayOn no meds.Monit or mood.Psych consult prn. Benign pro static hyperplasia without outflow obstruction 832741121 N40.0 In hx, with some issues with retention at times.Cont inuetamsul osin 0.4 mg qd. Asthenia 57862597 R53.1 remains with weakness to legs and armsPT/OT eval and treatmonit or [id number] Sonja Gibbs NP [address] [address] 05/31/2024 10:47:07 06/02/2024 08:35:29 Pain in right arm 428497128 M79.601 Denies trauma or injury. feels it is improving. refuses additional meds for pain today but requests the oxycodone 10 mg scheduled instead of prnx rays and venous US to right arm negative for acute [id number] /25 sched Oxycodone 10 mg po q 6 hours and dc prn doses for pain.physi atry rec tyl 1000 mg po tid and lidocaine patch which is helpingcyc lobenzapri ne bidMRI sched for 06/01 of back and hoping to get more info on status and diagnosisM onitor closely. Asthenia 25504351 R53.1 remains with weakness to legs and armsPT/OT eval and treatmonit or Depressive disorder 8943 9002 F32.89 a little down today, wishes his progress was futher, but reports okayOn no meds.Monit or mood.Psych consult prn. Chronic di astolic heart failure 447750496 I50.32 Pt's main c/o was and continues [...] stable Spinal mg nosis of lumbar region 06505979 M48.062 With chronic back pain. 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 MRI sched for 06/01 of back and hoping to get more info on status and diagnosis contPT/OT for strengthen ing, balance, gait training, safety and function.C ontinue fall precaution s.Monitor for safety.Mon itor pain controlCel ebrex remains on hold. Diabetes mellitus 694994 09 E11.9 BS 100s-occ 200s stable, [facility] outptLast HgA1C was 7.9 in 11/2023.[place] 1.5 weekly, tresiba 35 U qd, metformin 500 mg BID, januvia 25 mg qd, and SSIMonitor fingerstic ks TID and HgA1C as outpt. Essential hypertension 30628179 I10 bp stableCont inue meds as above and amlodipine 2.5 mg qd.Monitor BP and labs Chronic ki dney disease stage 2 530180392 N18.2 At baseline.C ontinue to avoid nephrotoxi c meds as able.Monit or labs.Renal consult prn. [id number] Sonja Gibbs NP [address] [address] 06/17/2024 08:35:00 06/18/2024 14:22:00 Spinal stenosis of lumbar region 01336660 M48.062 With chronic back pain. hx of [...] His pcp Dr Jacinto referred him to [facility] with appt [...] remains on hold. Pain in right arm 194559 004 M79.601 Denies trauma or injury. feels it is improving. has decreased rom and lymphedema for some time nowcontphy siatry prn consultedc onttyl 1000 mg po tid and lidocaine patch which is helpingsch ed Oxycodone 10 mg po q 6 hours and dc prn doses for pain.cyclo benzaprine bidMRI sched for 06/01 of back results pending. nsg obtainingM onitor closely. Asthenia 15984861 R53.1 remains with weakness to left leg and right armPT/OT eval and treat prn, off regular therapymon itor Osteoarthr itis of knee 825399509 M17.12 Z96.652 LTKR originally done on 02/11remains [...] planned soon, nsg to [facility] , dr epsteinu/s of bilateral lower ext today on 06/17monit or Nausea and vomiting 1691999 R11.2 likely related to constipati onsee belowzofra n 4 mg po q 6 hours prn n/v x 30 days Constipation 25071766 K5 9.09 unclear why bowel meds decreased recently, now with 6 days of constipati onmiralax 17 gms prn qd, titrate as neededdocu sate 100 mg daily06/17 MOM 30 cc [facility] and give bisacodyl supp if no results in a few hoursMonit or bowel function outpt with [facility] pcp [id number] Judie Camacho MD [address] [address] 06/18/2024 19:40:37 12/14/2024 09:26:32 Nausea and vomiting 72293516 R11.2 Thought due to constipati on.Improve dContinue zofran 4 mg q 6 hrs prnMonitor for recurrence . Constipation 27808385 K5 9.09 Continue bowel meds as ordered.Mo nitor bowel function. Spinal mg nosis of lumbar region 56416344 M48.062 With mod to severe spinal canal [...] s as planned. Pain in right arm 701477 004 M79.601 As above. Asthenia 65773877 R53.1 Continues with weakness of LLE and RUEPT/OT prnF/U with specialist s as planned. Chronic di astolic heart failure 271730512 I50.32 Only sx is peripheral edemaHis last echo was in 2022 and showed EF of 60-65% and grade 1 diastolic dysfunctio n.Continue benazapril 40 mg qd, lasix 40 mg qd, and hydralazin e 25 mg qd.Also on Trulicity, which is cardioprot ective.Cheng ears euvolemic. Monitor resp. status, fluid status, wts and labs. Diabetes mellitus 927084 09 E11.9 Last HgA1C was 7.9 in 11/2023.Fol lowed by endocrine at [facility].Contin ue trulicity 1.5 weekly, tresiba 35 U qd, metformin 500 mg BID, januvia 25 mg qd, and SSITresiba not yet delivered, ok to use Lantus instead tonight.Mo nitor fingerstic ks TID and HgA1C as outpt. Essential hypertension 67110229 I10 SBP a little high yesterday, not checked todayConti nue meds as above and amlodipine 2.5 mg qd.Monitor BP and labsDaily BPs ordered. Chronic ki dney disease stage 2 600318773 N18.2 At baseline.C ontinue to avoid nephrotoxi c meds as able.Monit or labs.Renal consult prn. Hypercholesterolemia 136 63721 E78.2 Continue atorvastat in 20 mg qd, fenofibrat e 145 mg qd, vascepa 2 g BID, and ASA 81 mg qd.Monitor labs as outpt. Depressive disorder 3548 9007 F32.89 In hx.On no meds.Monit or mood.Psych consult prn. Benign pro static hyperplasia without outflow obstruction 349641433 N40.0 In hx, with some issues with retention at times.Cont inue tamsulosin 0.4 mg qd. [id number] MARIE TORRES NP [facility] [address] [address] 06/22/2024 12:27:29 06/23/2024 09:31:59 Gastroesophageal reflux disease without esophagitis 860448036 K21.9 Using TUMS frequently for GERD/GI sx.Start pepcid 20 mg bidMonitor sx.If remain problemati c, consider trial of PPI [id number] Sonja Gibbs NP [facility] [address] 06/23/2024 13:31:14 06/24/2024 12:10:49 Asthenia 54900182 R53.1 remains with weakness to left leg and right armPT/OT eval and treat prn, off regular therapymon itor Constipation 61352628 K5 9.09 unclear why bowel meds decreased recently, now with 2 days of constipati on and continues with this every couple of days give mom 30 cc and bisacodyl 10 pr supp nowcont miralax 17 gms prn daily(sche duled)cydney a plus 2 tabs dailydc docusateMo nitor bowel function Spinal mg nosis of lumbar region 16614830 M48.062 With chronic back pain. hx of [...] Apple 06/24 for right shoulder painalso 07/29/24 [facility] at 1 pm. contPT/OT for strengthen ing, balance, gait training, safety and function prnremains barrington lift at this timeContin ue fall precaution s.Monitor for safety.Mon itor pain controlCel ebrex remains on hold. Pain in right arm 208105 004 M79.601 Denies trauma or injury. feels it is improving. has decreased rom and lymphedema for some time nowcontphy siatry prn consultedc onttyl 1000 mg po tid and lidocaine patch which is helpingsch eduled Oxycodone 10 mg po q 6 hours and dc prn doses for pain.cyclo benzaprine bidMonitor closely.se e above for management Osteoarthr itis of knee 439207217 M17.12 Z96.652 LTKR originally done on 02/11remains [...] 06/17monit or Chronic di astolic heart failure 141929678 I50.32 Pt says he never had any [...] fluid status, wts and labs. Diabetes mellitus 853581 09 E11.9 Last HgA1C was 7.9 in 11/2023.Fol lowed by endocrine at [facility].Contin uetrulicit y 1.5 weekly, tresiba 35 U qd, metformin 500 mg BID, januvia 25 mg qd, and SSIMonitor fingerstic ks TID and HgA1C as outpt. Essential hypertension 47428496 I10 stable 133/82Cont inue meds as above and amlodipine 2.5 mg qd.Monitor BP and labsDaily BPs ordered. Depressive disorder 3548 9007 F32.89 In hx.On no meds.Monit or mood.Psych consult prn. Benign pro static hyperplasia without outflow obstruction 897964120 N40.0 In hx, with some issues with retention at times.Cont inuetamsul osin 0.4 mg qd. [id number] [facility] [address] [place] [address] 06/25/2024 10:45:21 06/28/2024 14:12:37 Asthenia 41206898 R53.1 remains with weakness to left leg and right arm06/25 right arm and left knee brace on in am and off in pm per dr anderson's ordersPT/O T eval and treat prn, off regular therapymon itor Spinal mg nosis of lumbar region 07619672 M48.062 With chronic back pain. hx of [...] and off in pmfu after MRI 07/29/24 [facility] at 1 pm sched from outside provider contPT/OT for strengthen ing, balance, gait training, safety and function prnremains barrington lift at this timeContin ue fall precaution s.Monitor for safety.Margareth mccullough pain controlCel ebrex remains on hold. Pain in right arm 900289 004 M79.601 Denies trauma or injury. feels [...] above for management Osteoarthr itis of knee 915853273 M17.12 Z96.652 LTKR originally done on 02/11remains with decreased strength and rom to left knee/leg, barrington lift at this timeoxycod one 10 mg at 6am, 5 mg po at 2pm and 8 pmContinue celecoxib 200 mg BIDAPAP 650 mg TID and q 4 hrs prn (NTE 3000 mg/d),Cont inue fall precaution s.Monitor for safety.12/ 20 left knee brace on in am and off in pm per dr anderson's ordersu/s of bilateral lower ext today on 06/17monit or Diabetes mellitus 220584 09 E11.9 Last HgA1C was 7.9 in 11/2023.Fol lowed by endocrine at [facility].with BS of 58 on 06/25 and similar on 06/23, remains asymptomat icContinue trulicity 1.5 weekly, metformin 500 mg BID, januvia 25 mg qd, and SSI06/25 decrease (degludec) tresiba 30 U qd to 26 unitsMonit or fingerstic ks TID and HgA1C as outpt. [id number] MARIE TORRES NP [facility] [address] [address] 07/01/2024 11:24:41 07/02/2024 11:53:48 Constipation 20231710 K59.09 Documented BM 06/24, 06/28Pt. states no [...] to scheduled dailyTo ER if condition worsens [id number] Sonja Gibbs NP [facility] [address] [address] 07/14/2024 13:30:49 07/16/2024 10:19:43 Diabetes mellitus 27629639 E11.9 Last HgA1C was 7.9 in 11/2023.Fol [...] units of insulin in recent past Asthenia 15851409 R53.1 remains with weakness to left leg and right arm06/25 right arm and left knee brace on in am and off in pm per dr anderson's ordersPT/O T eval and treat prn, off regular therapymon itor [id number] Sonja Gibbs NP [address] [address] 07/22/2024 14:17:32 07/23/2024 15:07:54 Constipation 39521609 K59.09 with regular bm per patient todayCurre ntly no abd. pain, no N/V.BS w5Lwybojwk e fluids, dietary fiber.cont senna plus 2 tabs qdmiralax dailyhouse bowel protocol prn Diabetes mellitus 035975 09 E11.9 Last HgA1C was 7.9 in 11/2023.Fol lowed by endocrine at [facility] with multiple low BS in amContinue trulicity 1.5 weeklymetf ormin 500 mg BIDanuvia 25 mg qd, and SSI(deglud ec)tresiba 20 unitsMonit or fingerstic ks TID and HgA1C as outpt.(of note was on 35 units of insulin in recent past) Asthenia 52840187 R53.1 remains with weakness to left leg and right arm, and today with right leg weaknessri ght arm and left knee brace on in am and off in pm per dr anderson's ordersPT/O T eval and treat prn, off regular therapymon itor Spinal mg nosis of lumbar region 89482696 M48.062 With chronic back pain. hx of [...] in pmfu after MRI sched /29/08 5 [facility] at 1 pm sched from outside providerco ntPT/OT for strengthen ing, balance, gait training, safety and function prnremains barrington lift at this timeContin ue fall precaution s.Monitor for safety.Margareth mccullough pain controlCel ebrex remains on hold. Pain in right arm 991814 004 M79.601 Denies trauma or injury. feels [...] above for management Osteoarthr itis of knee 798512466 M17.12 Z96.652 LTKR originally done on 02/11remains [...] concernsmo nitor Chronic di astolic heart failure 357391114 I50.32 per hosp report of CHF.he never [...] fluid status, wts and labs. Essential hypertension 79613258 I10 stableCont inue meds as above and amlodipine 2.5 mg qd.Monitor BP and labsDaily BPs ordered. Depressive disorder 3548 9007 F32.89 In hx.On no meds.Monit or mood.Psych consult prn. Benign pro static hyperplasia without outflow obstruction 824572425 N40.0 In hx, with some issues with retention at times.Cont inuetamsul osin 0.4 mg qd. Gastroesop hageal reflux disease without esophagitis 670746900 K21.9 Using TUMS frequently for GERD/GI sx. resolvingc ontpepcid 20 mg bidMonitor sx.If remain problemati c, consider trial of PPI Nausea and vomiting 1693 1999 R11.2 resolvedse e belowzofra n 4 mg po q 6 hours prn n/v x 30 days Chronic ki dney disease stage 2 556329038 N18.2 At baseline.C ontinue to avoid nephrotoxi c meds as able.Monit or labs.Renal consult prn. Hypercholesterolemia 136 81530 E78.2 Continueat orvastatin 20 mg qdfenofibr ate 145 mg qdvascepa 2 g BID,ASA 81 mg qd.Monitor labs as outpt. [id number] Sonja Gibbs NP [address] [address] 07/30/2024 08:03:45 08/03/2024 12:50:06 Spinal stenosis of lumbar region 14419272 M48.062 With chronic back pain and weakness [...] in pmfu after cervical MRI sched 07/3107/29/24 [facility] with rec:neuros urgery consult with Dr Serna 07/30 referral to [facility] ordered as recommende d, has MRI today. contPT/OT prn, currently not working with himremains barrington lift at this timeContin ue fall precaution s.Monitor for safety.Margareth mccullough pain controlCel ebrex remains on hold. Asthenia [id number] R53.1 remains with weakness to left leg and right arm, and today with right leg weaknessri ght arm sling and left knee brace on in am and off in pm per dr anderson's ordersPT/O T eval and treat prn, off regular jean mccullough Pain in right arm 076641 004 M79.601 Denies trauma or injury. feels [...] above for management Osteoarthr itis of knee 030967488 M17.12 Z96.652 LTKR originally done on 02/11remains [...] lower ext neg for acute concernsmo nitor [id number] Sonja Gibbs NP [place] [address] [place] [address] 08/04/2024 09:05:47 08/06/2024 09:42:06 Spinal stenosis of lumbar region 53087032 M48.062 With chronic back pain and weakness [...] rec for minimally invasive spine center at [facility] app[facility] rec:neuros [...] of c3 to the superior endplate of c5.[facility] sent pt referral:rich rios was rec for minimally invasive spine center at [facility] appt 2/3 contPT/OT prn, currently not working with himremains barrington lift at this timeContin ue fall precaution s.Monitor for safety.Mon itor pain control see belowCeleb sandip remains on hold. Asthenia [id number] R53.1 remains with weakness to left leg and right arm, and today with right leg weaknessri ght arm sling and left knee brace on in am and off in pm per dr anderson's ordersPT/O T eval and treat prn, off regular therapymon itor Pain in right arm 274941 004 M79.601 Denies trauma or injury. feels [...] above for management Osteoarthr itis of knee 179234112 M17.12 Z96.652 LTKR originally done on 02/11remains [...] neg for acute concernsmo nitor Diabetes mellitus 759986 09 E11.9 Last HgA1C was 7.9 in 11/2023.Fol lowed by endocrine at [facility] with multiple low BS in am of 54, recheck BS came upContinue januvia 25 mg qdSSItruli city 1.5 weekly08/04 increase metformin 500 mg BID to 1000 mg po bid08/04 dc tresiba 20 units qhs for low BSMonitor fingerstic ks TID and HgA1C as outpt.(of note was on 35 units of insulin in recent past) Chronic pain 03701749 G8 9.29 followed by pain management here08/04 start gabapentin 100 mg po bidContinu eoxycodone 10 mg qid for painceleco xib 200 mg BIDAPAP 650 mg TID and q 4 hrs prn (NTE 3000 mg/d),Cont inue fall precaution s.Monitor for safety. Pain of left eye 6235517 001 40742 H57.12 reports left eye pain related to dropper touching his eye last nightno injuries or abnormalit y of eye notedwarm compress given at visit for comfort.mo nitor [id number] Sonja Gibbs NP [address] [address] 08/09/2024 14:58:20 08/10/2024 11:35:43 Diabetes mellitus 77295454 E11.9 Last HgA1C was 7.9 in 11/2023.Fol lowed by endocrine at [facility] with multiple low BS in am of 47, recheck BS came up to 111Continu ejanuvia 25 mg qdSSImetfo rmin 1000 mg po bid2/3 dc trulicity 1.5 weekly(not e tresiba recently dc'd)Monit or fingerstic ks TID and HgA1C as outpt.(of note was on 35 units of long acting insulin in recent past) Chronic pain 79727888 G8 9.29 followed by pain management herecontga bapentin 100 mg po bidoxycodo ne 10 mg qid for painceleco xib 200 mg BIDAPAP 650 mg TID and q 4 hrs prn (NTE 3000 mg/d),Cont inue fall precaution s.Monitor for safety. Spinal mg nosis of lumbar region 18873688 M48.062 With chronic back pain and weakness [...] rec for minimally invasive spine center at [facility] appt 08/0907/29/[facility] rec:neuros [...] of c3 to the superior endplate of c5.[facility] sent pt referral:rich rios was rec for minimally invasive spine center at [facility] appt /3 08/04 referral to [facility] ordered as recommende d with MRI results back today 08/04 from 07/30 2/ awaiting consult from spine center2/5 fu appoint at minimally invasive spine center to discuss options08/[address] Aleisha padilla (neurosurg [place]) contPT/OT prn, currently not working with himremains barrington lift at this timeContin ue fall precaution s.Monitor for safety.Mon itor pain control see belowCeleb sandip remains on hold. Asthenia [id number] R53.1 remains with weakness to left leg and right arm, and today with right leg weaknessri ght arm sling and left knee brace on in am and off in pm per dr anderson's ordersPT/O T eval and treat prn, off regular therapymon itor Pain in right arm 227974 004 M79.601 Denies trauma or injury. feels [...] above for management Osteoarthr itis of knee [id number] M17.12 Z96.652 LTKR originally done on 02/11remains [...] lower ext neg for acute concernsmo nitor [id number] [facility] [address] 08/20/2024 10:30:03 08/23/2024 10:20:02 Chronic pain 67288033 G89.29 followed by pain management herecontga bapentin 100 mg po bidoxycodo ne 10 mg qid for painceleco xib 200 mg BIDAPAP 650 mg TID and q 4 hrs prn (NTE 3000 mg/d),Cont inue fall precaution s.Monitor for safety. Spinal mg nosis of lumbar region 80719022 M48.062 With chronic back pain and weakness [...] rec for minimally invasive spine center at [facility] appt 08/0907/29/[facility] rec:neuros [...] of c3 to the superior endplate of c5.[facility] sent pt referral:rich rios was rec for minimally invasive spine center at [facility] appt 08/09 08/04 referral to [facility] ordered as recommende d with MRI results back today 08/04 from 07/30 08/09 awaiting consult from spine center/ fu appoint at minimally invasive spine center to discuss options08/07 Dr Aleisha padilla (neurosurg [place]) dc' [facility] spine center with Dr. Isabel did a [...] for safety.Mon itor pain control see belowCeleb sadnip remains on hold. Asthenia [id number] R53.1 remains with weakness to left leg and right arm, and today with right leg weaknessri ght arm sling and left knee brace on in am and off in pm per dr anderson's ordersPT/O T eval and treat prn, off regular therapymon itor [id number] Sonja Gibbs NP [address] [address] 08/23/2024 09:57:33 08/24/2024 15:31:28 Spinal stenosis of lumbar region 96049656 M48.062 With chronic back pain and weakness [...] rec for minimally invasive spine center at [facility] appt 08/0907/29/[facility] rec[facility]neuros [...] of c3 to the superior endplate of c5.[facility] sent pt referral:rich rios was rec for minimally invasive spine center at [facility] appt 08/09 08/04 referral to [facility] ordered as recommende d with MRI results back today 08/04 from 07/30 08/09 awaiting consult from spine center08/11 fu appoint at minimally invasive spine center to discuss options08/07 Dr Aleisha padilla (neurosurg [place]) dc'd2/13 [facility] spine center with Dr. Isabel did a [...] belowCeleb sandip remains on hold. Chronic pain 14846151 G8 9.29 followed by pain management herecontga bapentin 100 mg po bidoxycodo ne 10 mg qid for painceleco xib 200 mg BIDAPAP 650 mg TID and q 4 hrs prn (NTE 3000 mg/d),Cont inue fall precaution s.Monitor for safety. Difficulty swallowing 28 1236464 R13.10 08/23 startpredn isone 40 mg po [...] and follow labs and for diff swallowing [id number] Sonja Gibbs NP [address] [address] 08/26/2024 10:35:53 08/27/2024 16:16:23 Spinal stenosis of lumbar region 79213036 M48.062 With chronic back pain and weakness [...] rec for minimally invasive spine center at [facility] appt 3 07/29[facility] rec:neuros [...] of c3 to the superior endplate of c5.[facility] sent pt referral:rich rios was rec for minimally invasive spine center at [facility] appt 08/09 08/04 referral to [facility] ordered as recommende d with MRI results back today 08/04 from 07/30 08/09 awaiting consult from spine center08/11 fu appoint at minimally invasive spine center to discuss options08/07 Dr Aleisha padilla (neurosurg [place]) dc' [facility] spine center with Dr. Isabel did a [...] lipid profile for 08/27 Difficulty swallowing 28 9041848 R13.10 08/26 contpredni sone 40 mg po [...] as it is too big Chronic pain 67338447 G8 9.29 followed by pain management herecontga bapentin 100 mg po bidoxycodo ne 10 mg qid for painceleco xib 200 mg BIDAPAP 650 mg TID and q 4 hrs prn (NTE 3000 mg/d),Cont inue fall precaution s.Monitor for safety. Hypercholesterolemia 136 83624 E78.2 Continueat orvastatin 20 mg qdfenofibr ate 145 mg qdvascepa 2 g BID,ASA 81 mg qd.Monitor labs as outpt.lipi d profile to assess need for all meds above 08/27 [id number] Sonja Gibbs NP [address] [address] 09/09/2024 12:10:04 09/14/2024 08:43:09 Spinal stenosis of lumbar region 18195829 M48.062 With chronic back pain and weakness [...] rec for minimally invasive spine center at [facility] appt [facility]07[facility]29[facility] rec:neuros [...] of c3 to the superior endplate of c5.[facility] sent pt referral:rich rios was rec for minimally invasive spine center at [facility] appt 08/09 08/04 referral to [facility] ordered as recommende d with MRI results back today 08/04 from 07/30 08/09 awaiting consult from spine center08/11 fu appoint at minimally invasive spine center to discuss options08/07 Dr Aleisha padilla (neurosurg [place]) dc' [facility] spine center with Dr. Isabel did a [...] meds see below 09/09 followed up with [facility], cont with pt/ot and monitor, ? fu in 6 weeks contremain s barrington lift at this timeContin ue fall precaution s.Monitor for safety.Mon itor pain control see belowCeleb sandip remains on hold. 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 [id number] Prince Le MD [facility] [address] [address] 09/11/2024 11:45:11 09/14/2024 09:51:44 Difficulty swallowing 539071930 R13.12 speech to followmoni tor aspiration risk and need to further adjust diet Spinal mg nosis in cervical region 97283597 M48.02 underwent anterior cervical discectomy and fusion with good effectmoni tor sxupdate surgery with concerns Essential hypertension 91025140 I10 hydralazin e 25 mg tidlasix 40 mg qdnorvasc 2.5 mg qdbenazapr il 40 mg qdmonitor bp and need to titrate [id number] Sonja Gibbs NP [facility] [address] [address] 09/22/2024 08:30:03 09/24/2024 14:43:14 Spinal stenosis in cervical region 29916165 M48.02 underwent anterior cervical discectomy and fusion with good effect with increased rom to right shoulder and remains with bilateral lower ext weakness, but reports improved feelingmon itor sxpt ot eval and treatupdat e surgery with concerns Difficulty swallowing 28 5742948 R13.12 seems to be improving. speech to followmoni tor aspiration risk and need to further adjust diet Acute left otitis media 163274749 H66.92 pt is allergic to pcn3/19sta rt levaquin 750 mg po qd x 10 days with probioticm onitor Persistent cough 5513539 02 R05.3 pt with persistant resp cough for a few weeks and now with thick green sputumwill get cxr to ro pnaalready on abx above as ordered for otitis media, but may help with this alsomonito r vitals, temp and resp statusrobi tussin prnmucinex 600 mg po bid x 10 days [id number] Sonja Gibbs NP [facility] [address] [address] 09/30/2024 09:47:39 10/04/2024 11:25:27 Persistent cough 647030121 R05.3 resolveddc robitussin prndc mucinex 600 mg po bid x 10 days Difficulty swallowing 28 4423087 R13.12 resolvedmo nitor aspiration risk and need to further adjust diet Acute left otitis media 477630323 H66.92 pt is allergic to pcncont levaquin 750 mg po qd x 10 days with probioticm onitor Spinal mg nosis in cervical region 81199300 M48.02 underwent anterior cervical discectomy and fusion with good effect with increased rom to right shoulder and remains with bilateral lower ext weakness, but reports improved feelingmon itor sxpt ot eval and treatupdat e surgery with concerns Essential hypertension 17409529 I10 bp on low side todaycont hydralazin e 25 mg tiddc norvasc 2.5 mg qdcont benazapril 40 mg qddecrease lasix to 20 mg po qdmonitor bp and need to titrate Spinal mg nosis of lumbar region 29575795 M48.062 With chronic back pain and weakness [...] rec for minimally invasive spine center at [facility] appt 08/0907/29/[facility] rec:neuros [...] of c3 to the superior endplate of c5.[facility] sent pt referral:rich rios was rec for minimally invasive spine center at [facility] appt 08/09 08/04 referral to [facility] ordered as recommende d with MRI results back today 08/04 from 07/30 08/09 awaiting consult from spine center08/11 fu appoint at minimally invasive spine center to discuss options08/07 Dr Aleisha padilla (neurosurg [place]) dc'/ [facility] spine center with Dr. Isabel did a [...] meds see below 09/09 followed up with [facility] spine [facility] center, cont with pt/ot and monitor, ? fu in 6 weeks 09/30 overall improving contremain s barrington lift at this timeContin ue fall precaution s.Monitor for safety.Mon itor pain control see belowCeleb sandip remains on hold. Chronic pain 31441084 G8 9.29 followed by pain management here and pt requests to dc tylcont3/2 7 increase gabapentin from 100 mg po bid to 200mg po bid3.27 dc APAP 650 mg TIDcontoxy codone 10 mg qid for paincont tyl 650 q 4 hrs prncont cyclobenza tutu 1 tab bidContinu e fall precaution s.Monitor for safety. Hypercholesterolemia 136 26112 E78.2 pt requests to dc vascepa, will cont other medsContin ueatorvast atin 20 mg qdfenofibr ate 145 mg qdASA 81 mg qd.Monitor labs as outpt.lipi d profile on 11/10/24 to eval Benign pro static hyperplasia without outflow obstruction 368795729 N40.0 In hx, with some issues with retention at times however none lately and will trial dc todaydc tamsulosin 0.4 mg qd. [id number] Sonja Gibbs, DIAMOND [address] [address] 10/06/2024 16:43:50 10/08/2024 14:42:40 Spinal stenosis in cervical region 48211346 M48.02 underwent anterior cervical discectomy and fusion with good effect with increased rom to right shoulder and remains with bilateral lower ext weakness, but reports improved feelingmon itor sxpt ot eval and treatupdat e surgery with concerns Essential hypertension 47758163 I10 bp on low side today 84/50 [...] titrate Spinal mg nosis of lumbar region 39216421 M48.062 With chronic back pain and weakness [...] rec for minimally invasive spine center at [facility] appt 2/3 07/29[facility] rec:neuros [...] of c3 to the superior endplate of c5.[facility] sent pt referral:rich rios was rec for minimally invasive spine center at [facility] appt 08/09 08/04 referral to [facility] ordered as recommende d with MRI results back today 08/04 from 07/30 08/09 awaiting consult from spine center2 fu appoint at minimally invasive spine center to discuss options08/07 Dr Aleisha padilla (neurosurg [place]) dc' [facility] spine center with Dr. Isabel did a [...] meds see below 09/09 followed up with [facility] spine and surgery center, cont with pt/ot and monitor, ? fu in 6 weeks 09/30 overall improving 4/ cont above care contremain s barrington lift at this timeContin ue fall precaution s.Monitor for safety.Mon itor pain control see belowCeleb sandip remains on hold. Chronic pain 15093900 G8 9.29 followed by pain management contoxycod one 10 mg qid for paincont tyl 650 q 4 hrs prncont cyclobenza tutu 10mg 1 tab bidContinu e fall precaution s.Monitor for safety. [id number] Sonja Gibbs NP [address] [address] 10/07/2024 08:31:54 10/08/2024 14:57:59 Essential hypertension 89446322 I10 bp on low side x2 days [...] BELOW Spinal mg nosis in cervical region 45194252 M48.02 underwent anterior cervical discectomy and fusion with good effect with increased rom to right shoulder and remains with bilateral lower ext weakness, but reports improved feelingmon itor sxpt ot eval and treatupdat e surgery with concerns Spinal mg nosis of lumbar region 25277161 M48.062 With chronic back pain and weakness [...] rec for minimally invasive spine center at [facility] appt 08/0907/29/[facility] rec:neuros [...] of c3 to the superior endplate of c5.[facility] sent pt referral:rich rios was rec for minimally invasive spine center at [facility] appt 08/09 08/04 referral to [facility] ordered as recommende d with MRI results back today 08/04 from 07/30 08/09 awaiting consult from spine center08/11 fu appoint at minimally invasive spine center to discuss options08/07 Dr Aleisha padilla (neurosurg [place]) dc' [facility] spine center with Dr. Isabel did a [...] meds see below 09/09 followed up with [facility] spine and surgery center, cont with pt/ot and monitor, ? fu in 6 weeks 09/30 overall improving / cont above care, with low bp see above contremain s barrington lift at this timeContin ue fall precaution s.Monitor for safety.Mon itor pain control see belowCeleb sandip remains on hold. Chronic pain 71445376 G8 9.29 followed by pain management contoxycod one 10 mg qid for paincont tyl 650 q 4 hrs prncont cyclobenza tutu 10mg 1 tab bid , hold for sbp <100Contin ue fall precaution s.Monitor for safety. Low blood pressure 03945 003 R03.1 [id number] see above without known sourceA DDEDUM SEND [...] Richardson Member ID Guarantor Name 05/21/2024 1 [facility] PLAN - [facility] (HMO) [facility] Carlos Cabrera [id number] Carlos Cabrera 05/21/2024 1 [place] [facility] Carlos Cabrera [id number] Carlos Cabrera 05/21/2024 1 [place] [employer] Carlos Cabrera [id number] Carlos Cabrera 05/21/2024 1 [facility] - DUAL ELIGIBLE - [facility] - SENIOR PLAN (MEDICARE REPLACEMENT/AD VANTAGE - HMO) Carlos Cabrera [id number] Carlos Cabrera 12/14/2024 1 [facility] - DOS ON OR AFTER 2022 - MEDICARE ADVANTAGE [place] (MEDICARE REPLACEMENT/AD VANTAGE - PPO) Carlos Cabrera [id number] Carlos Cabrera Notes Date Note Type Note Provider Name and Address Organization Details Recorded Time 09/11/2024 text/html Patient is a 68 yo male resident due for routine rounding visit. Patient recently underwent anterior cervical discectomy and fusion with good effect. PMH significant for htn, dm, chf Prince Le MD [address] [place] [address], [address], [place], [address], [facility] [employer] 09/11/2024 11:52:10 09/22/2024 text/html Pt is seen [...] in general. Sonja Gibbs NP [address] [facility], [address], [place], [address], [employer] 09/22/2024 10:55:29 09/30/2024 text/html Pt is seen [...] green sputum and pain is more controlled /10 today. Lungs clear and no swelling to lower extremities today. Sonja Gibbs NP [address] [facility], [address], [place], [address], [employer] 09/30/2024 10:12:58 10/06/2024 text/html Pt is seen [...] go to ER. Meds adjusted accordingly. Sonja Gibbs, DIAMOND [address] [facility], [address], [place], [address], [employer] 10/06/2024 18:02:57 10/07/2024 text/html Pt is seen [...] in 80s Sonja Gibbs NP [address] [facility], [address], [place], [address], [facility] [employer] 10/07/2024 13:39:06
--- OUTSIDE RECORDS SUMMARY | 2025-06-01 16:53 | XMS_ITS | Encounter Summary ---
Author Organization [facility] Address [address] [place] [address] Care Team Providers Care Steel Layout Worker Name Role Phone Tram Álvarez MD Primary Care Provider [phone] Encounter Details Date Type Department Care Team (Late st Contact Info) Description 06/18/2024 Lab Requisition [facility] - Main Lab [address] [place] [address] Prince Le MD [address] [facility] [address] [place], [address] Nausea with vomiting, unspecified; Chronic kidney [...] LAB CHEMISTRY METHOD 06/18/2024 11:17 AM EST [facility] ([facility] Potassium 4.6 3.5 - [...] t [facility] [address] [place] [address], * (ABNORMAL) Complete blood count (06/18/2024 6:44 AM EST) WBC 8.4 4.8 - 10.8 K/[facility] LAB HEMETOLOGY METHOD 06/18/2024 10:46 AM [facility] LAB RBC 5.10 4.50 - 5.50 M/[facility] LAB HEMETOLOGY METHOD 06/18/2024 10:46 AM [facility] [...] LAB Platelets 248 130 - 400 K/[facility] LAB HEMETOLOGY METHOD 06/18/2024 10:46 AM [facility] MPV 12.7(H) 7.0 - 11.0 [place] LAB HEMETOLOGY METHOD 06/18/2024 10:46 AM [facility] LAB NRBC 0.0 <1.0 % LAB HEMETOLOGY METHOD 06/18/2024 10:46 AM [facility] LAB NRBC Absolute 0.00 <0.10 K/[facility] LAB HEMETOLOGY METHOD 06/18/2024 10:46 AM [facility] Blood Venous blood specimen / Unknown Venipuncture / Unknown 06/18/2024 6:44 AM EST 06/18/2024 9:17 AM EST us Prince Le MD LAB BLOOD ORDERABLES Final Resul t [facility] ([facility]) [facility] [address] [place] [address], documented in this encounter Visit Diagnoses Diagnosis Nausea with vomiting, unspecified Chronic kidney disease, unspecified documented in this encounter Care Teams Steel Layout Worker Relationship Specialty Start Date End Date Tram Álvarez MD [address] [facility] , [address] [place] [address] Physician Associ D/B/A: [facility] JAS Duque PCP - General Internal Medicine 03/30/18 documented as of this encounter
--- OUTSIDE RECORDS SUMMARY | 2025-06-01 16:53 | XMS_ITS | Encounter Summary ---
Author Organization [facility] Address [address] [place] [address] Care Team Providers Care Cylinder Valve Repairer Name Role Phone Tram Álvarez MD Primary Care Provider [phone] Encounter Details Date Type Department Care Team (Late st Contact Info) Description 04/27/2025 Lab Requisition [facility] [address] [place] [address] Preeti Lujan MD [address] [id number] Essential (primary) hypertension; Other disorders of electrolyte [...] LAB CHEMISTRY METHOD 04/27/2025 10:49 AM EDT [facility] Potassium 4.8 3.5 - 5.5 mmol/L LAB CHEMISTRY METHOD 04/27/2025 10:49 AM [facility] Chloride 109 96 - 110 mmol/L LAB CHEMISTRY METHOD 04/27/2025 10:49 AM [facility] CO2 26 21 - 32 mmol/L LAB CHEMISTRY METHOD 04/27/2025 10:49 AM [facility] Anion Gap 4 3 - 11 LAB CHEMISTRY METHOD 04/27/2025 10:49 AM [facility] Glucose 196(H) 70 - 100 mg/dL LAB CHEMISTRY METHOD 04/27/2025 10:49 AM [facility] BUN 26(H) 5 - 25 mg/dL LAB CHEMISTRY METHOD 04/27/2025 10:49 AM [facility] Creatinine 1.03 0.70 - 1.30 mg/dL LAB CHEMISTRY METHOD 04/27/2025 10:49 AM [facility] LAB eGFR 79 >=60 mL/min/1. 73m2 LAB CHEMISTRY METHOD 04/27/2025 10:49 AM [facility] LAB Comment:Calculation based on the Chronic Kidney Disease Epidemiology Collaboration (CKD-EPI) equation refit without adjustment for race. BUN/Creatinine Ratio 25.2 LAB CHEMISTRY METHOD 04/27/2025 10:49 AM [facility] Calcium 9.2 8.5 - 10.5 mg/dL LAB CHEMISTRY METHOD 04/27/2025 10:49 AM [facility] LAB Blood Venous blood specimen / Unknown Venipuncture / Unknown 04/27/2025 6:36 AM EDT 04/27/2025 9:12 AM EDT us Preeti Lujan MD LAB BLOOD ORDERABLES Fin al Result [facility] [address] [place] [address], * (ABNORMAL) Complete blood count (04/27/2025 6:36 AM EDT) [facility] WBC 8.1 4.8 - 10.8 K/mcL LAB HEMETOLOGY METHOD 04/27/2025 9:53 AM [facility] RBC 4.40(L) 4.50 - 5.50 M/mcL LAB HEMETOLOGY METHOD 04/27/2025 9:53 AM [facility] Hemoglobin 12.6(L) 13.5 - 17.5 g/dL LAB HEMETOLOGY METHOD 04/27/2025 9:53 AM [facility] LAB Hematocrit 40.2(L) 42.0 - 54.0 % LAB HEMETOLOGY METHOD 04/27/2025 9:53 AM [facility] MCV 91.8 79.0 - 98.0 FL LAB HEMETOLOGY METHOD 04/27/2025 9:53 AM [facility] MCH 28.8 27.0 - 32.0 pcg LAB HEMETOLOGY METHOD 04/27/2025 9:53 AM [facility] MCHC 31.3(L) 32.0 - 37.0 g/dL LAB HEMETOLOGY METHOD 04/27/2025 9:53 AM [facility] RDW 15.0 11.0 - 15.0 % LAB HEMETOLOGY METHOD 04/27/2025 9:53 AM [facility] Platelets 230 130 - 400 K/mcL LAB HEMETOLOGY METHOD 04/27/2025 9:53 AM [facility] MPV 13.9(H) 7.0 - 11.0 FL LAB HEMETOLOGY METHOD 04/27/2025 9:53 AM [facility] NRBC 0.0 <1.0 % LAB HEMETOLOGY METHOD 04/27/2025 9:53 AM [facility] LAB NRBC Absolute 0.00 <0.10 K/mcL LAB HEMETOLOGY METHOD 04/27/2025 9:53 AM EDT [facility] Blood Venous blood specimen / Unknown Venipuncture / Unknown 04/27/2025 6:36 AM EDT 04/27/2025 9:12 AM EDT us Preeti Lujan MD LAB BLOOD ORDERABLES Fin al Result [facility] [address] [place] [address], documented in this encounter Visit Diagnoses Diagnosis Essential (primary) hypertension Unspecified essential hypertension Other disorders of electrolyte and fluid balance, not elsewhere classified documented in this encounter Care Teams Cylinder Valve Repairer Relationship Specialty Start Date End Date Tram Álvarez MD [address] [facility] , [address] [facility]A: [facility] JAS Duque PCP - General Internal Medicine 03/30/18 documented as of this encounter
== END 2025-06-01 15:24 | disposition home or self-care (01) ==
LOC: HO.HNS 13:46
PROVIDERS: PCP Internal Medicine; Visit Provider Physician Assistant
DX: Z98.890 Other specified postprocedural states (principal)
CPT/HCPCS: 99024

== ENCOUNTER → 2025-06-01 13:45 | Outpatient (BNVA) | payer OTHER, SELFPAY | PROVIDERS: PCP Internal Medicine; Visit Provider Physician Assistant | DX: Z48.811 Encounter for surgical aftercare following surgery on the nervous system (principal) | CPT/HCPCS: 99212 ==